=== PATIENT | female | born 1990 | race Caucasian/White ===

== ENCOUNTER → 2022-07-30 14:42 | Outpatient (CLI) | payer MEDICAID, SELFPAY ==
[2022-07-30 16:25] LABS: Albumin Level 3.9 g/dl (3.5-5.0); Blood Urea Nitrogen 58 mg/dl (7-17); Calcium 7.7 mg/dl (8.4-10.2); Carbon Dioxide 19 mmol/L (22.0-30.0); Chloride 112 mmol/L (98-107); Estimated Glomerular Filt Rate 9 ml/min (>60); GFR (African American) 11 ML/MIN (>60); Glucose 94 mg/dl (74-100); Phosphorous 8.1 mg/dl (2.5-4.5); Sodium 141 mmol/L (136-145)
[2022-07-30 16:38] LABS: Intact Parathyroid Hormone 407.5 pg/mL (7.5-53.5)
[2022-07-30 18:14] LABS: 25-OH Vitamin D, Total 18.6 ng/mL (30-100)
== END ==
PROVIDERS: PCP Family Medicine; Visit Provider Internal Medicine Nephrology
DX: N18.5 Chronic kidney disease, stage 5 (principal)
CPT/HCPCS: 36415; 80069; 82306; 83970

== ENCOUNTER 2022-09-07 21:23 | Emergency (ER) | payer MEDICAID, SELFPAY ==
[2022-09-07 21:25] VITALS: BP 200/109; BP 209/114; PULSE 89; RESP 16; TEMP 37; O2SAT 100; BMI 25.7
[2022-09-07 21:34] VITALS: BMI 24.1
--- NOTE | 2022-09-07 21:44 | XR_ITS ---
PROCEDURE INFORMATION: Exam: XR Chest Exam date and time: 09/07/2022 9:48 PM Age: 32 years old Clinical indication: Cough; Patient HX: Unable to remove piercing; Additional info: Cough/chest pain TECHNIQUE: Imaging protocol: Radiologic exam of the chest. Views: 2 views. COMPARISON: No relevant prior studies available. FINDINGS: Lungs: Normal pulmonary expansion. Pulmonary vasculature grossly normal. No gross pulmonary infiltrates or edema pattern. Pleural spaces: No pleural effusion. No pneumothorax. Heart/Mediastinum: Heart size normal. No tracheal/mediastinal shift. Bones/joints: No acute osseous abnormalities are identified. Mild thoracic spondylosis. IMPRESSION: No acute thoracic process.
--- NOTE | 2022-09-07 21:45 | HMH.EDGENADL ---
Discharge Plan Disposition Patient Disposition: Left Against Medical Advice Prescriptions Prescriptions: No Action atorvastatin 40 mg Tablet 40 mg PO HS carvedilol 25 mg Tablet 25 mg PO BID Rx Instructions: must administer with a meal/food sodium bicarbonate 650 mg Tablet 650 mg PO BID calcitriol 0.5 mcg Capsule 0.5 mcg PO DAILY loratadine 10 mg Tablet 10 mg PO DAILY Referrals Follow up/Referrals: Provider,Referral, MD [Primary Care Provider] - See instructions Clinical Impressions Clinical Impression: Upper respiratory infection, Hypertensive urgency, Chronic renal failure, Anemia in chronic kidney disease, Chest pain, atypical Discharge ED Provider: Stephanie Ferrer Adult HPI General Chief complaint: PAIN Stated complaint: BARONE,sore throat,SOA,Right earache Time Seen by Provider: 09/07/22 21:40 Mode of Arrival: Ambulatory Source of Information: Spouse Limitations: No Limitations History of Present Illness HPI narrative: Patient is a 32-year-old female who is here secondary to multiple complaints. Patient is complaining about right earache, cough, right-sided chest pain, elevated blood pressure and potassium. Patient states she has a history of hypertension, hyperlipidemia, diabetes and chronic renal failure. She is supposed to get her peritoneal dialysis shunt put in and is supposed to start peritoneal dialysis soon. Surgical appointment with her surgeon to get the PD catheter is next Tuesday morning. Patient said her potassium always runs high double the amount she stated. Patient stated that she still makes urine. She is takes sodium bicarbonate 650 mg 2 tablets 3 times a day to keep her potassium low. Patient stated last time her potassium was checked which was 1 month ago and they are checking every 2 months. Patient's complaining about right earache postnasal drip coughing significantly sitting up phlegm which is clear and right-sided chest pain. Patient denies any weakness or confusion or slurred speech. Patient denies any nausea vomiting or diarrhea. Patient right-sided chest pain which she says is sharp and hurts when she takes a deep breath or moves. Chest pain upper respiratory symptoms been going on for 2 days. Patient feels that chest pain is hurting now because of trauma because of the profuse cough. Onset (ago): day(s) Location: chest and right (right ear pain) Radiation: non-radiation Severity: moderate Severity scale (1-10): 8 Quality: dull Consistency: constant Relieving factors: none Exacerbating factors: none Associated symptoms: chest pain and cough Treatments prior to arrival: none Related Data Home Medications Medication Instructions Recorded Confirmed atorvastatin 40 mg tablet 40 mg PO HS High cholesterol 09/07/22 09/07/22 calcitriol 0.5 mcg capsule 0.5 mcg PO DAILY Supplement 09/07/22 09/07/22 carvedilol 25 mg tablet 25 mg PO BID Hypertension 09/07/22 09/07/22 loratadine 10 mg tablet 10 mg PO DAILY seasonal allergies 09/07/22 09/07/22 sodium bicarbonate 650 mg tablet 650 mg PO BID Supplement 09/07/22 09/07/22 Allergies Allergy/AdvReac Type Severity Reaction Status Date / Time NSAIDS (Non-Steroidal Allergy Other Verified 09/07/22 21:37 Anti-Inflamma [facility] Disclaimer: The information contained in this section may have been updated after the patient was seen, as this information can be updated by other users. 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 (Updated 09/08/22 @ 00:33 by Stephanie Ferrer MD) Diabetes type 1, uncontrolled End stage renal disease Hypertension Seasonal allergies Social History Smoking Status: Current every day smoker alcohol intake: never current occupational status: disabled Travel in the last 8 weeks: None ROS Obtained: Yes All systems reviewed & no additional complaints except as documented Constitutional Constitutional: Reports system revie
--- NOTE | 2022-09-07 21:54 | ECG_ITS ---
APPROVED REPORT Exam: Resting ECG HR:82 bpm ECG Measurements Heart Rate 82 AXES UT 157 P 84 QRSd 85 QRS 89 QT 353 T 81 QTc 392 Conclusion SINUS RHYTHM NORMAL ECG UNCONFIRMED REPORT Electronically signed by : Demetrius Pillai MD 09/08/2022 14:12:54
[2022-09-07 22:02] LABS: Basophils % 0.2 % (0.1-2.0); Eosinophils # 0.2 K/mm3 (0.0-0.4); Eosinophils % 2.5 % (0.1-12.0); Hematocrit 35.1 % (37.0-47.0); Hemoglobin 11.6 g/dL (12.2-16.2); Lymphocytes # 1.3 K/mm3 (0.7-4.5); Lymphocytes % 13.5 % (10-50); Mean Corpuscular Hemoglobin 31.9 pg (27.0-31.2); Mean Corpuscular Volume 96.7 fl (81-99); Mean Platelet Volume 10.8 fl (7.4-10.4); Monocytes # 0.3 K/mm3 (0.1-1.0); Monocytes % 2.7 % (1.7-9.3); Neutrophils # 7.7 K/mm3 (1.8-7.8); Platelet Count 130 K/mm3 (142-424); Red Blood Count 3.63 M/mm3 (4.20-5.40); White Blood Count 9.5 K/mm3 (4.8-10.8)
[2022-09-07 22:09] LABS: Chloride 117 mmol/L (98-107); Sodium 143 mmol/L (136-145)
[2022-09-07 22:12] LABS: Alanine Aminotransferase 13 U/L (12-78); Albumin Level 4.4 g/dl (3.5-5.0); Albumin/Globulin Ratio 1.6 (1.1-1.8); Alkaline Phosphatase 73 U/L (38-126); Aspartate Amino Transferase 16 U/L (14-36); Bilirubin,Total 0.4 mg/dl (0.2-1.3); Blood Urea Nitrogen 55 mg/dl (7-17); Carbon Dioxide 18 mmol/L (22.0-30.0); Creatinine Clearance Estimated 15 mL/min (50-200); Estimated Glomerular Filt Rate 9 ml/min (>60); GFR (African American) 11 ML/MIN (>60); Globulin 2.7 g/dL (1.3-3.2); Total Protein,Serum 7.1 g/dl (6.3-8.2)
[2022-09-07 22:13] LABS: Calcium 7.2 mg/dl (8.4-10.2); Glucose 118 mg/dl (74-100)
[2022-09-07 22:25] VITALS: BP 135/76; PULSE 82; O2SAT 97
[2022-09-07 22:27] LABS: Troponin I < 0.01 ng/ml (0.00-0.034)
--- NOTE | 2022-09-07 22:28 | PC.NURSE ---
Dr. Ferrer notified of critical creatinine of 5.40
[2022-09-07 22:30] VITALS: BP 152/82; PULSE 81; O2SAT 99
[2022-09-07 22:39] LABS: Activated Partial Thrombo Time 27.6 seconds (22.8-30.6); INR 1.03 (0.9-1.1); Prothrombin Time 11.1 seconds (10.1-12.5)
[2022-09-07 22:46] LABS: Coronavirus 19, PCR Not Detected (NotDetected); Influenza A, PCR Not Detected (NotDetected); Influenza B, PCR Not Detected (NotDetected)
--- NOTE | 2022-09-08 00:17 | PC.NURSE ---
Pt upset over wait times. States being here has just really made things worse and I get that I might go home and but I will sign that AMA paper to get out of here . Pt had pulled her own IV out, she reports I did it at 11:37 pm in case you needed to know . Pt would not stay for 2nd troponin. States she will call her Nephrology doctor in the AM to get and emergency appointment . BP 160/100, pt refused to wait to see Dr. Ferrer.
[2022-09-08 00:21] VITALS: BP 160/100; PULSE 80; RESP 16; TEMP 36.6; O2SAT 98
== END 2022-09-08 00:22 | disposition left against medical advice (07) ==
PROVIDERS: Emergency Provider Emergency Medicine
DX: J06.9 Acute upper respiratory infection, unspecified (principal); I16.0 Hypertensive urgency; R07.89 Other chest pain; D63.1 Anemia in chronic kidney disease; N18.6 End stage renal disease; E10.22 Type 1 diabetes mellitus with diabetic chronic kidney disease; I12.0 Hypertensive chronic kidney disease with stage 5 chronic kidney disease or end stage renal disease; F17.210 Nicotine dependence, cigarettes, uncomplicated; Z20.822 Contact with and (suspected) exposure to COVID-19
CPT/HCPCS: 71046; 80053; 84484; 85025; 85378; 85610; 85730; 93005; 96374; 99285; C9803; U0003; U0005

== ENCOUNTER → 2022-09-28 13:55 | Outpatient (CLI) | payer MEDICAID, SELFPAY ==
[2022-09-28 14:33] LABS: Basophils % 0.8 % (0.1-2.0); Eosinophils # 0.2 K/mm3 (0.0-0.4); Eosinophils % 4.3 % (0.1-12.0); Hematocrit 35.5 % (37.0-47.0); Hemoglobin 11.2 g/dL (12.2-16.2); Lymphocytes # 1.4 K/mm3 (0.7-4.5); Lymphocytes % 30.6 % (10-50); Mean Corpuscular HGB Conc 31.7 g/dL (31.8-35.4); Mean Corpuscular Hemoglobin 30.7 pg (27.0-31.2); Mean Corpuscular Volume 96.8 fl (81-99); Mean Platelet Volume 10.2 fl (7.4-10.4); Monocytes # 0.2 K/mm3 (0.1-1.0); Monocytes % 4.8 % (1.7-9.3); Neutrophils # 2.7 K/mm3 (1.8-7.8); Neutrophils % 59.5 % (37.0-80.0); Platelet Count 173 K/mm3 (142-424); Red Blood Count 3.66 M/mm3 (4.20-5.40); Red Cell Distribution Width 12.8 % (11.5-17.5); White Blood Count 4.5 K/mm3 (4.8-10.8)
[2022-09-28 14:54] LABS: Albumin Level 3.9 g/dl (3.5-5.0); Anion Gap 15.5 mEq/L (5-15); Blood Urea Nitrogen 61 mg/dl (7-17); Carbon Dioxide 21 mmol/L (22.0-30.0); Chloride 108 mmol/L (98-107); Estimated Glomerular Filt Rate 10 ml/min (>60); GFR (African American) 12 ML/MIN (>60); Glucose 82 mg/dl (74-100); Phosphorous 6.9 mg/dl (2.5-4.5); Potassium 5.5 mmoL/L (3.5-5.1); Sodium 139 mmol/L (136-145)
== END ==
PROVIDERS: Visit Provider Internal Medicine Nephrology
DX: N18.5 Chronic kidney disease, stage 5 (principal)
CPT/HCPCS: 36415; 80069; 85025

== ENCOUNTER → 2022-10-07 15:25 | Outpatient (CLI) | payer MEDICAID, SELFPAY ==
[2022-10-09 14:33] LABS: Hep B Core Ab, Total Negative (Negative); Hep B Surface Ab, Qual Reactive (.)
[2022-10-19 04:59] LABS: Hepatitis B Surface Antigen NEGATIVE
== END ==
PROVIDERS: Visit Provider Internal Medicine Nephrology
DX: Z01.84 Encounter for antibody response examination (principal)
CPT/HCPCS: 36415; 86704; 86706; 87340

== ENCOUNTER → 2023-03-16 11:12 | Outpatient (CLI) | payer MEDICAID, SELFPAY | PROVIDERS: PCP Nurse Practitioner; Visit Provider Nurse Practitioner | DX: R19.7 Diarrhea, unspecified (principal) | CPT/HCPCS: 87493 ==

== ENCOUNTER 2023-04-20 17:19 | Emergency (ER) | payer MEDICAID, SELFPAY ==
[2023-04-20 17:30] VITALS: BP 108/70; PULSE 73; RESP 18; TEMP 36.6; O2SAT 99; BMI 26.2
--- NOTE | 2023-04-20 17:40 | EXP.UTC ---
Discharge Plan Disposition Patient Disposition: Home, Self-Care Condition: Good Prescriptions Prescriptions: No Action insulin asp prt-insulin aspart 100 unit/mL (70-30) cartridge 75 unit SQ DAILY atorvastatin 40 mg Tablet 40 mg PO HS carvedilol 25 mg Tablet 25 mg PO BID Rx Instructions: must administer with a meal/food calcitriol 0.5 mcg Capsule 0.5 mcg PO DAILY loratadine 10 mg Tablet 10 mg PO DAILY Referrals Follow up/Referrals: Maria A Soria APRN [Primary Care Provider] - See instructions Activity Restrictions/Add. Instructions Additional Instructions/Restrictions: *Monitor Temp, Over the counter Motrin or Tylenol as directed/as needed Tylenol every 4 hours and Motrin every 6 hours (as long as your family doctor has told you that you can take it) for fever or pain. and straight to ER if unable to lower temp less than 101.0 after medication given *Warm salt water gargles may help to soothe the throat *Throat Lozenges? *Warm fluids like tea with honey may help to soothe the throat? *Sleep elevated *Humidifier/Vaporizer Over the counter cough and cold medication may help with symptoms Your throat swab was sent for culture. Those results are typically sent to your primary care. Be sure to follow up in 2-3 days with your family doctor/primary care physician if no improvement so they can review those result and treat if necessary. If you don?t have a primary care doctor, I recommend you get one but in the mean time, you will have to return to a walk in clinic Follow up IMMEDIATELY for new or worsening symptoms or no Noticeable improvement over the next 48-72 hours. 911 for difficulty breathing or swallowing Clinical Impressions Clinical Impression: Viral upper respiratory infection Instructions Patient Instructions: DI for Viral Upper Respiratory Infection -- Adult Discharge ED Provider: Yue Zhang [facility] [place] HPI General Stated complaint: sore throat, BARONE ear ache Mode of Arrival: Ambulatory Source of Information: Patient Limitations: No Limitations Time Seen by Provider: 04/20/23 17:40 Description of Symptoms (Recalled from Triage Doc. by RN): PATIENT C/O COUGH, EAR ACHE, SORE THROAT, FEVER AND CHILLS X 3 DAYS HEENT Symptoms (Recalled from RN notes): Yes Resp Symptoms (Recalled from RN notes): Yes Skin Symptoms (Recalled from RN notes): No MS Symptoms (Recalled from RN notes): No Functional Status (Recalled from RN notes): WNL History of Present Illness Provider Complaint: Patient states that she was recently around family that has since tested positive for Flu B States for the last couple of days she has been having fever, chills, pain in her ears sore throat and cough Related Data Home Medications Medication Instructions Recorded Confirmed atorvastatin 40 mg tablet 40 mg PO HS High cholesterol 09/07/22 04/13/23 calcitriol 0.5 mcg capsule 0.5 mcg PO DAILY Supplement 09/07/22 04/13/23 carvedilol 25 mg tablet 25 mg PO BID Hypertension 09/07/22 04/13/23 loratadine 10 mg tablet 10 mg PO DAILY seasonal allergies 09/07/22 04/13/23 insulin aspart prot-aspart 100 75 unit SQ DAILY 04/13/23 04/13/23 unit/mL (70-30) subcutaneous cartridge Allergies Allergy/AdvReac Type Severity Reaction Status Date / Time NSAIDS (Non-Steroidal Allergy Other Verified 04/13/23 14:32 Anti-Inflamma Worker's Comp Is this a Worker's Comp case?: No [facility] Disclaimer: The information contained in this section may have been updated after the patient was seen, as this information can be updated by other users. 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 (Updated 04/20/23 @ 18:01 by Yue Zhang APRN) Diabetes type 1, uncontrolled End stage renal disease Hypertension Seasonal allergies Surgical History (Updated 04/13/23 @ 15:02 by SADIQ Eldridge) H/O gastric sleeve H/O tubal ligation History of delivery History of D&C Family Hist
[2023-04-20 17:53] LABS: UTC Influenza A Antigen Negative (Negative); UTC Influenza B Antigen Negative (Negative)
[2023-04-20 17:54] LABS: UTC Strep Screen (Rapid) Negative (Negative)
[2023-04-20 18:08] VITALS: BP 108/70; PULSE 73; RESP 18; TEMP 36.6; O2SAT 99
== END 2023-04-20 18:13 | disposition home or self-care (01) ==
PROVIDERS: Emergency Provider Nurse Practitioner; PCP Nurse Practitioner
DX: J06.9 Acute upper respiratory infection, unspecified (principal); R50.9 Fever, unspecified; E10.69 Type 1 diabetes mellitus with other specified complication; N18.6 End stage renal disease; Z87.891 Personal history of nicotine dependence
CPT/HCPCS: 87804; 87880; 99203; 99212; G0463

== ENCOUNTER 2023-08-25 08:53 | Outpatient (CLI) | payer MEDICAID, SELFPAY ==
--- OUTSIDE RECORDS SUMMARY | 2023-08-25 08:57 | XMS_ITS ---
Author Name Mukul Stevens Address [address] [place] [address] Phone [phone] Organization [facility], NA DOCUMENT DISCLAIMER Multiple document versions may exist, please be sure you review the latest version. The information in the [facility] Progress Note Document represents a providers documented clinical note containing certain health and medical information. It may not contain the complete medical history for the patient and should be independently verified. The represented time in the document is Eastern Time PROVIDER ROUNDING NOTE PD PROVIDER?ROUNDING?NOTE?PD Clinic:?[id number]?HOME?PROGRAM Visit?date:?11/08/2022?00:00?Modality/setting:?HCCPD Crystal?Gianni?-?Chart?#:?[id number] Method?of?Interaction:?Face?to?face Date?of?Interaction:?06/30/2023 ?-?Patient?is?stable ?-?Medications?and?labs?reviewed. Patient?issues?include: no?complaints?today,?she?is?active?on?u?of?l?transplant?list,?was?called?for transplant?but?she?did?not?hear?her?phone?and?she?missed?it. Vitals Temperature:? Pulse:? Respirations: 97.4? 79? 16? Date:? 05/11/23? 04/11/23? 02/04/23? Weight?(kg):? Date/Height:? 70.4? 71? 71.4? 12/14/2022&# 160;?? 165? ----- BP?(Sitting):? BP?(Standing):?&#1 60;? ----- 111/84? 140/87? 173/128? ----- Volume?Management?Comments: good PD?Prescription CCPD ??CCPD,?6X?Week,?EDW?70.5?(kg)?Ca?2.5?(mEq/L)&#160 ;Mg?0.5?(mEq/L),?Dextrose?1.5;?2.5; ??fill?vol?1800?mL?cyc?therapy?vol?5400?mL?cyc?therapy?time?7?hrs?30?min,?avg?d Adequacy/Transport ?Creatinine?Transport?Glucose?Transport?? ?&# 160;?D/P?Ratio?PET?4hr?D/DO?Ratio?PET 4hr? ?Average?Low12/28/22?? ?Average?Low12/28/22?? ?0.51&#1 60;?12/28/22?? ?0.43?12/28/22?-?-?& #160;??-?-?-?-?& #160;??-?-?Residual?Kt/V?PD?Kt/V&# 160;(Dialysate)?Total?Weekly?Kt/V?? Potassium,?Serum?mEq/L ?1.01?04/26/23?? ?0.81?04/26/23?? ?1.82?1 ?? ?6.1?06/20/23?? ?1.70?01/19/23?? ?0.92?01/19/23?? ?2.62?0 01/19/23?? ?5.0?05/24/23?? ?1.40?12/14/22?? ?1.25?12/14/22?? ?2.65?0 12/14/22?? ?5.2?04/26/23?Bicarbonate?mEq/L??? Creatinine?Serum?mg/dL ??& #160;??Sodium?mEq/L? BUN?mg/dL?18?06/20/23?? ?8.80?06/20/23?? ?140?&#16 0;??06/20/23?? ?78?06/20/23?? ?20?05/24/23?? ?7.96?05/24/23?? ?141?&#16 0;??05/24/23?? ?63?05/24/23?? ?20?04/26/23?? ?6.84?04/26/23?? ?139?&#16 0;??04/26/23?? ?66?04/26/23?? ?-?Adequacy?parameters?reviewed Adequacy not?following?a?low?k?diet?for?thanksgiving,?repeat?drawn?today.??may?be?getting uremic?on?6days?will?go?back?to?7?and?add?nahco3 back Anemia ?HGB?g/dL? Transferrin?Sat.?(Calc)?%?Ferritin?ng/mL&#160 ;?10.2?06/20/23?43?06/20/23?637 ?04/26/23?? ?10.1?05/24/23?36?05/24/23?243 ?01/19/23?? ?10.8?04/26/23?46?04/26/23?295 ?12/21/22?? ?-?Anemia?reviewed ?-?Anemia?targets?met not?on?zina Bone?and?Mineral?Metabolism ??Calcium,?Total?mg/dL?? Calcium,?Corrected?mg/dL ?&#1 60;??Phosphorous?mg/dL??? PTH-Intact,?Plasma?pg/mL ??8.9?06/20/23? 9.1?06/20/23?7.5&#16 0;?06/20/23?466?06/20/23?9.1?05/24/23? 9.1?05/24/23?5.2&#16 0;?05/24/23?326?05/24/23?8.7?04/26/23? 8.7?04/26/23?6.7&#16 0;?04/26/23?942?04/26/23?Vitamin?D?25?Hydroxy?ng/mL?45.3?03/29/23?18.1?11/08/22?-? PTH ?-?PTH?within?target ?-?Bone?and?mineral?metabolism?parameters?reviewed ?-?Hyperphosphatemia?noted po4?improved?on?chloe?acetate?she?was?unable?to?take sevelamer.??chloe?acetate giving?her?diarrhea.??she?went?back?on?sevelamer?and&#1 60;now?po4?uncontrolled.??will try?velphoro.??samples?given. Nutrition ?Albumin?g/dL?nPCR?g/kg/day?Glucose?mg/dL?3.7?06/20/23?? ?1.03?04/26/23?? ?189?06/20/23?? ?4.0?05/24/23?? ?1.18?01/19/23?? ?191?05/24/23?? ?4.0?04/26/23?? ?0.89?12/14/22?? ?124?04/26/23?? ?-?Nutrition?reviewed alb?dropped?pt?lost?appetite?for?meat Home?Medications ?Home?Medications?(updated:?06/15/2023?15:36:16)??Patient:?Gianni,?Crystal ?atorvastatin?(atorvastatin) ?40?mg,?oral,?1?tablet?once?a?day ?calcitriol?(calcitriol) ?0.5?mcg,?oral,?2?capsule?once?a?day ?calcium?acetate(phosphat?bind)?(calcium?acetate(phosphat?bind)) ?667?mg,?oral,?2?capsule?three?times?a?day ?[take?1?with?meals] ?carvedilol?(carvedilol) ?25?mg,?oral,?1?tablet?twice?a?day ?Claritin?(loratadine) ?10?mg,?oral,?1?tablet?once?a?day ?Colace?(docusate?sodium) ?100?mg,?oral,?1?capsule?twice?a?day ?[OTC] ?ergocalciferol?(vitamin?D2)?(ergocalciferol?(vitamin?d2)) ?1,250?mcg?(50,000?unit),?oral,?1?capsule?once?a?week ?lactulose?(lactulose) ?10?gram/15?mL,?oral,?30?ml?once?a?day ?[for?constipation,?may?repeat?dose?if?not?effective] ?lisinopril?(lisinopril) ?10?mg,?oral,?1?tablet?at?bedtime Access?Status?and?Evaluation Active?PD?Catheter ?Type ?Exit?Site?&#1 60;?Status?Access?ID?PDCatheter-Double?Cuff?Coiled?Lower?Quadrant-Lef t?Active?(In?Use)?[id number]?- ?-?&# 160;?-?-? Peritoneal?Access?Evaluation?(Hollyowski?Criteria): Overall?Evaluation ?-?Perfect Peritoneal?Access?-?Exit?Site ?-?Site?looks?clean Peritoneal?Access?-?Tunnel ?-?Tunnel?tract?without?sign?of?infection Exam ?-?Vital?signs?reviewed Pulmonary ?-?LUNGS?-?clear Cardiovascular ?-?CV?-?Blood?pressure?noted ?-?CV?-?RRR Edema ?-?EXT?-?No?edema Interest?and?Eligibility?(If?changes?are?made,?Please?notify?SW?via?alert?below) ?Date?of?discussion?from?transplant?assessment:?03/09/2023 ?Patient?already?on?transplant?list??Yes ?Patient?interested?in?transplantation??Yes ?Has?patient's?physician?identified?one?or?more?exclusions per?the ?Contraindication?list?provided?by?the?transplant?center? ??No ?Patient?referred?for?transplantation??Yes,?per?physician?order ?Transplant?Comments: ??Per?Patient?she?is?active?on?UL?list,?and?request?to?be?referred?to?[facility]. ??03/09/23?continue?to?monitor?and?assist?with?transplant?process,?patient continues?to?follow?up?with?programs. ?Transplant?[facility]/state:?[facility] ?[place] Tobacco?Cessation ??Tobacco?use:?Former?user ??Type:?Cigarettes ??Packs?per?day:? 1 ??Years?smoked:? 10 ??Frequency:?Daily Mukul?KAIDEN Stevens END OF DOCUMENT
--- OUTSIDE RECORDS SUMMARY | 2023-08-25 08:57 | XMS_ITS ---
Author Name Mukul Stevens Address [address] [place] [address] Phone [phone] Organization [facility], NA DOCUMENT DISCLAIMER Multiple document versions may exist, please be sure you review the latest version. The information in the [facility] Progress Note Document represents a providers documented clinical note containing certain health and medical information. It may not contain the complete medical history for the patient and should be independently verified. The represented time in the document is Eastern Time PROVIDER ROUNDING NOTE PD PROVIDER?ROUNDING?NOTE?PD Clinic:?[id number]?HOME?PROGRAM Visit?date:?11/08/2022?00:00?Modality/setting:?HCCPD Crystal?Gianni?-?Chart?#:?[id number] Method?of?Interaction:?Face?to?face Date?of?Interaction:?08/11/2023 ?-?Patient?is?stable Patient?issues?include: no?complaints?today,?she?is?active?on?u?of?l?transplant?list,?was?called?for transplant?but?she?did?not?hear?her?phone?and?she?missed?it.??she?wants trazodone?for?sleep?melatonin/benadryl?ineffective Vitals Temperature:? Pulse:? Respirations: 97.2? 88? 18? Date:? 08/11/23? 06/30/23? 05/11/23? Weight?(kg):? Date/Height:? 71.3? 70.4? 12/14/2022&# 160;?? 165? ----- BP?(Sitting):? BP?(Standing):?&#1 60;? ----- 131/91? 111/76? 111/84? 106/84? ----- Volume?Management?Comments: good PD?Prescription CCPD ??CCPD,?6X?Week,?EDW?67.5?(kg)?Ca?2.5?(mEq/L)&#160 ;Mg?0.5?(mEq/L),?Dextrose?1.5;?2.5; ??fill?vol?1800?mL?cyc?therapy?vol?7200?mL?cyc?therapy?time?8?hrs?10?min,?avg?d Adequacy/Transport ?Creatinine?Transport?Glucose?Transport?? ?&# 160;?D/P?Ratio?PET?4hr?D/DO?Ratio?PET 4hr? ?Average?Low/?? ?Average?Low12/28/22?? ?0.51&#1 60;?12/28/22?? ?0.43?12/28/22?-?-?& #160;??-?-?-?-?& #160;??-?-?Residual?Kt/V?PD?Kt/V&# 160;(Dialysate)?Total?Weekly?Kt/V?? Potassium,?Serum?mEq/L ?1.31?07/21/23?? ?1.03?07/21/23?? ?2.34?0 07/21/23?? ?5.1?07/21/23?? ?1.01?04/26/23?? ?0.81?04/26/23?? ?1.82?1 ?? ?4.4?07/13/23?? ?1.70?01/19/23?? ?0.92?01/19/23?? ?2.62?0 01/19/23?? ?4.8?06/30/23?Bicarbonate?mEq/L??? Creatinine?Serum?mg/dL ??& #160;??Sodium?mEq/L? BUN?mg/dL?25?07/21/23?? ?8.14?07/21/23?? ?142?&#16 0;??07/21/23?? ?61?07/21/23?? ?18?06/20/23?? ?8.80?06/20/23?? ?140?&#16 0;??06/20/23?? ?78?06/20/23?? ?20?05/24/23?? ?7.96?05/24/23?? ?141?&#16 0;??05/24/23?? ?63?05/24/23?? ?-?Adequacy?parameters?reviewed Adequacy ?-?Adequacy?target?met kinetics?good Anemia ?HGB?g/dL? Transferrin?Sat.?(Calc)?%?Ferritin?ng/mL&#160 ;?11.3?07/21/23?37?07/21/23?426 ?07/21/23?? ?10.2?06/20/23?43?06/20/23?637 ?04/26/23?? ?10.1?05/24/23?36?05/24/23?243 ?01/19/23?? ?-?Anemia?reviewed ?-?Anemia?targets?met not?on?zina Bone?and?Mineral?Metabolism ??Calcium,?Total?mg/dL?? Calcium,?Corrected?mg/dL ?&#1 60;??Phosphorous?mg/dL??? PTH-Intact,?Plasma?pg/mL ??9.2?07/21/23? 9.4?07/21/23?6.1&#16 0;?07/21/23?282?07/21/23?8.9?06/20/23? 9.1?06/20/23?4.6&#16 0;?07/13/23?466?06/20/23?9.1?05/24/23? 9.1?05/24/23?7.6&#16 0;?06/30/23?326?05/24/23?Vitamin?D?25?Hydroxy?ng/mL?44.8?07/21/23?45.3?03/29/23?18.1?11/08/22? PTH ?-?PTH?within?target ?-?Bone?and?mineral?metabolism?parameters?reviewed ?-?Hyperphosphatemia?noted she?is?on?chloe?acetate Nutrition ?Albumin?g/dL?nPCR?g/kg/day?Glucose?mg/dL?3.8?07/21/23?? ?1.14?07/21/23?? ?133?07/21/23?? ?3.7?06/20/23?? ?1.03?04/26/23?? ?189?06/20/23?? ?4.0?05/24/23?? ?1.18?01/19/23?? ?191?05/24/23?? ?-?Nutrition?reviewed alb?dropped?pt?lost?appetite?for?meat Home?Medications ?Home?Medications?(updated:?08/11/2023?13:42:09) Patient:?Gianni, Crystal ??atorvastatin?(atorvastatin) 40?mg,?oral,?1?tablet?once?a?day ??calcitriol?(calcitriol) 0.5?mcg,?oral,?2?capsule?once?a?day ??calcium?acetate(phosphat?bind)?(calcium?acetate(phosphat?bind)) 667?mg,?oral,?1?capsule?three?times?a?day ??carvedilol?(carvedilol) 25?mg,?oral,?1?tablet?twice?a?day ??Claritin?(loratadine) 10?mg,?oral,?1?tablet?once?a?day ??Colace?(docusate?sodium) 100?mg,?oral,?1?capsule?twice?a?day [OTC] ??ergocalciferol?(vitamin?D2)?(ergocalciferol?(vitamin?d2)) 1,250?mcg?(50,000?unit),?oral,?1?capsule?once?a?week ??lactulose?(lactulose) 10?gram/15?mL,?oral,?30?ml?once?a?day [for?constipation,?may?repeat?dose?if?not?effective] ??lisinopril?(lisinopril) 10?mg,?oral,?1?tablet?at?bedtime Access?Status?and?Evaluation Active?PD?Catheter ?Type ?Exit?Site?&#1 60;?Status?Access?ID?PDCatheter-Double?Cuff?Coiled?Lower?Quadrant-Lef t?Active?(In?Use)?[id number]?- ?-?&# 160;?-?-? Peritoneal?Access?Evaluation?(Erika?Criteria): Overall?Evaluation ?-?Perfect Peritoneal?Access?-?Exit?Site ?-?Site?looks?clean Peritoneal?Access?-?Tunnel ?-?Tunnel?tract?without?sign?of?infection Exam ?-?Vital?signs?reviewed Pulmonary ?-?LUNGS?-?clear Cardiovascular ?-?CV?-?Blood?pressure?noted ?-?CV?-?RRR Edema ?-?EXT?-?No?edema Interest?and?Eligibility?(If?changes?are?made,?Please?notify?SW?via?alert?below) ?Date?of?discussion?from?transplant?assessment:?03/09/2023 ?Patient?already?on?transplant?list??Yes ?Patient?interested?in?transplantation??Yes ?Has?patient's?physician?identified?one?or?more?exclusions per?the ?Contraindication?list?provided?by?the?transplant?center? ??No ?Patient?referred?for?transplantation??Yes,?per?physician?order ?Transplant?Comments: ??Per?Patient?she?is?active?on?UL?list,?and?request?to?be?referred?to?[facility]. ??03/09/23?continue?to?monitor?and?assist?with?transplant?process,?patient continues?to?follow?up?with?programs. ?Transplant?center/state:?[facility]?HOSPITAL ?[facility] Tobacco?Cessation ??Tobacco?use:?Former?user ??Type:?Cigarettes ??Packs?per?day:? 1 ??Years?smoked:? 10 ??Frequency:?Daily Mukul?Hilda,? END OF DOCUMENT
--- OUTSIDE RECORDS SUMMARY | 2023-08-25 08:57 | XMS_ITS ---
Author Name Mukul Stevens Address [address] [place] [address] Phone [phone] Organization [facility], NA DOCUMENT DISCLAIMER Multiple document versions may exist, please be sure you review the latest version. The information in the [facility] Progress Note Document represents a providers documented clinical note containing certain health and medical information. It may not contain the complete medical history for the patient and should be independently verified. The represented time in the document is Eastern Time PROVIDER ROUNDING NOTE PD PROVIDER?ROUNDING?NOTE?PD Clinic:?[id number]?HOME?PROGRAM Visit?date:?11/08/2022?00:00?Modality/setting:?HCCPD Crystal?Gianni?-?Chart?#:?[id number] Method?of?Interaction:?Face?to?face Date?of?Interaction:?06/15/2023 Patient?is?stable ?-?Medications?and?labs?reviewed. Patient?issues?include: Comments:?no?complaints?today,?she?is?active?on?u?of l?transplant?list Vitals ?Temperature:?Pulse:?Respirations:?97?94?16?Date?BP?Sitting?&#160 ; ?BP?Standing?Weight(kg)?05/11/23?111/84?& #160;?70.4?04/11/23?140/87?& #160;?71?02/04/23?173/128?71.4?Height?(cm):?165 ?Height?Date:?12/14/2022 VOLUME?MANAGEMENT?Comments:?good PD?Prescription CCPD ??CCPD,?6X?Week,?EDW?70.5?(kg)?Ca?2.5?(mEq/L)&#160 ;Mg?0.5?(mEq/L),?Dextrose?1.5;?2.5; ??fill?vol?1800?mL?cyc?therapy?vol?5400?mL?cyc?therapy?time?7?hrs?30?min,?avg?d Adequacy/Transport ?Creatinine?Transport?Glucose?Transport?? ?&# 160;?D/P?Ratio?PET?4hr?D/DO?Ratio?PET 4hr? ?Average?Low12/28/22?? ?Average?Low12/28/22?? ?0.51&#1 60;?12/28/22?? ?0.43?12/28/22?Residual?Kt/V?PD?Kt/V&# 160;(Dialysate)?Total?Weekly?Kt/V?? Potassium,?Serum?mEq/L ?1.01?04/26/23?? ?0.81?04/26/23?? ?1.82?1 ?? ?5.0?05/24/23?? ?1.70?01/19/23?? ?0.92?01/19/23?? ?2.62?0 01/19/23?? ?5.2?04/26/23?? ?1.40?12/14/22?? ?1.25?12/14/22?? ?2.65?0 12/14/22?? ?5.2?03/29/23?Bicarbonate?mEq/L??? Creatinine?Serum?mg/dL ??& #160;??Sodium?mEq/L? BUN?mg/dL?20?05/24/23?? ?7.96?05/24/23?? ?141?&#16 0;??05/24/23?? ?63?05/24/23?? ?20?04/26/23?? ?6.84?04/26/23?? ?139?&#16 0;??04/26/23?? ?66?04/26/23?? ?20?03/29/23?? ?7.20?03/29/23?? ?143?&#16 0;??03/29/23?? ?53?03/29/23?? ?-?Adequacy?parameters?reviewed Adequacy ?-?Adequacy?target?met ADEQUACY?TRANSPORT?Comment:?still?meeting?clearance?at?6days/wk Anemia ?HGB? Transferrin?Sat.?(Calc) ?Ferritin?g/dL?%?ng/m L?10.1?05/24/23?36?05/24/23?? ?637?04/26/23?? ?10.8?04/26/23?46?04/26/23?? ?243?01/19/23?? ?11.2?03/29/23?48?03/29/23?? ?295?12/21/22?? ?-?Anemia?reviewed ANEMIA?Comments:?not?on?zina Bone?and?Mineral?Metabolism ?Calcium,?Total?Calcium,?Corrected?Phosphorous? &#160 ;?PTH-Intact,?Plasma?mg/dL?mg/dL?mg/dL?pg/mL?9.1?05/24/23?? ?9.1?05/24/23?? ?5.2?&#16 0;??05/24/23?? ?326?05/24/23?? ?8.7?10/10/23?? ?8.7?04/26/23?? ?6.7?&#16 0;??04/26/23?? ?942?04/26/23?? ?7.8?03/29/23?? ?7.7?03/29/23?? ?7.0?&#16 0;??04/11/23?? ?1094?03/29/23 ? ??Vitamin?D?25?Hydroxy?ng/mL?45.3?03/29/23?18.1?11/08/22? PTH ?-?PTH?within?target ?-?Bone?and?mineral?metabolism?parameters?reviewed ?-?Calcium?controlled ?-?Phosphorus?controlled BONE?AND?MINERAL?METABOLISM?Comments:?po4?improved?on?chloe&#1 60;acetate?she?was?unable?to?take?sevelamer.??she?had&# 160;an?episode?of?gross?blood?in?her?peritoneal?fluid?w hich?was?culture?neg,?ct?neg.??possible?r/t?irregular menses Nutrition ?Albumin?nPCR?Glucose?&#1 60;?g/dL?g/kg/day?mg/dL?4.0?05/24/23?? ?1.03?04/26/23?? ?191?05/24/23?? ?4.0?04/26/23?? ?1.18?01/19/23?? ?124?04/26/23?? ?4.1?03/29/23?? ?0.89?12/14/22?? ?163?03/29/23?? ?-?Nutrition?reviewed NUTRITION?Comments:?alb?improved Home?Medications ?atorvastatin?(atorvastatin) ?40?mg,?oral,?1?tablet?once?a?day ?calcitriol?(calcitriol) ?0.5?mcg,?oral,?2?capsule?once?a?day ?calcium?acetate(phosphat?bind)?(calcium?acetate(phosphat?bind)) ?667?mg,?oral,?2?capsule?three?times?a?day ?[take?1?with?meals] ?carvedilol?(carvedilol) ?25?mg,?oral,?1?tablet?twice?a?day ?Claritin?(loratadine) ?10?mg,?oral,?1?tablet?once?a?day ?Colace?(docusate?sodium) ?100?mg,?oral,?1?capsule?twice?a?day ?[OTC] ?ergocalciferol?(vitamin?D2)?(ergocalciferol?(vitamin?d2)) ?1,250?mcg?(50,000?unit),?oral,?1?capsule?once?a?week ?lisinopril?(lisinopril) ?10?mg,?oral,?1?tablet?at?bedtime Access?Status?and?Evaluation Active?PD?Catheter ?Type ?Exit?Site?&#1 60;?Status?Access?ID?PDCatheter-Double?Cuff?Coiled?Lower?Quadrant-Lef t?Active?(In?Use)?[id number]? Peritoneal?Access?Evaluation?(Erika?Criteria): Overall?Evaluation ?-?Perfect Peritoneal?Access?-?Exit?Site ?-?Site?looks?clean Peritoneal?Access?-?Tunnel ?-?Tunnel?tract?without?sign?of?infection Exam Vital?signs?reviewed Pulmonary ?-?LUNGS?-?clear Cardiovascular ?-?CV?-?Blood?pressure?noted ?-?CV?-?RRR Edema ?-?EXT?-?No?edema Interest?and?Eligibility?(If?changes?are?made,?Please?notify?SW?via?alert?below) ?Date?of?discussion?from?transplant?assessment:?03/09/2023 ?Patient?already?on?transplant?list??Yes ?Patient?interested?in?transplantation??Yes ?Has?patient's?physician?identified?one?or?more?exclusions per?the ?Contraindication?list?provider?by?the?transplant?center? ??No ?Patient?referred?for?transplantation??Yes,?per?physician?order ?Transplant?Comments: ??Per?Patient?she?is?active?on?UL?list,?and?request?to?be?referred?to?[facility]. ??03/09/23?continue?to?monitor?and?assist?with?transplan t?process,?patient?continues?to?follow?up?with?programs. ?Transplant?center/state:?[facility] ?Transplant?center/state:?[facility] Tobacco?Cessation ??Tobacco?use:?Former?user ??Type:?Cigarettes ??Packs?per?day:? 1 ??Years?smoked:? 10 ??Frequency:?Daily Mukul?Hilda,? END OF DOCUMENT
--- NOTE | 2023-08-25 09:10 | XR_ITS ---
FINAL REPORT CLINICAL HISTORY: CONSTIPATION COMPARISON: None FINDINGS: A single supine view the abdomen was obtained. The bowel gas pattern is nonspecific but nonobstructive. There is a moderate amount of stool present in the colon. A peritoneal dialysis catheter is present. Mild vascular calcifications are noted. Osseous structures are within normal limits. IMPRESSION: Nonspecific but nonobstructive bowel gas pattern with a moderate stool burden.. Reviewed, Interpreted and Dictated by Maikol Leslie III, MD Transcribed by Oanh Palencia Authenticated and [facility]
== END 2023-08-25 23:59 ==
LOC: RAD 08:55
PROVIDERS: PCP Nurse Practitioner; Visit Provider Internal Medicine Nephrology
DX: K59.00 Constipation, unspecified (principal)
CPT/HCPCS: 74018

== ENCOUNTER 2023-09-17 10:06 | Emergency (ER) | payer MEDICAID, SELFPAY ==
[2023-09-17 10:20] VITALS: BP 146/90; PULSE 81; RESP 19; TEMP 36.7; O2SAT 100; BMI 27.4
--- NOTE | 2023-09-17 10:42 | EXP.UTC ---
Discharge Plan Disposition Patient Disposition: Home, Self-Care Condition: Good Prescriptions Prescriptions: New azithromycin [azithromycin] 250 mg tablet 250 mg PO DIRECTED Qty: 6 0RF Rx Instructions: Take two (2) tablets on day #1, then one (1) tablet day #2 thru #5 No Action carvedilol 25 mg Tablet 25 mg PO BID Rx Instructions: must administer with a meal/food loratadine 10 mg Tablet 10 mg PO DAILY ergocalciferol (vitamin D2) [Vitamin D2] 1,250 mcg (50,000 unit) capsule 1,250 mcg PO WEEKLY Patient Comments: TAKE 1 CAPSULE BY MOUTH ONCE PER WEEK (WEEKLY) sevelamer carbonate [Renvela] 800 mg tablet 800 mg PO TID Patient Comments: TAKE 1 TABLET BY MOUTH THREE TIMES A DAY WITH MEALS AND 1 TABLET WITH SNACKS Referrals Follow up/Referrals: Maria A Soria APRN [Primary Care Provider] - See instructions Activity Restrictions/Add. Instructions Additional Instructions/Restrictions: Start antibiotics today be sure to take it as ordered with the full length of time although you should start feeling better in 24-48 hours. Change toothbrush and toothpaste 24-48 hours after starting antibiotics Tylenol or Motrin as needed for fever or pain Encourage fluids, water, Gatorade, Powerade, try cold fluids, popsicles, ice cream will make it feel better You are contagious for 24 hours. Avoid kissing anyone, no eating or drinking after anyone. You are contagious. Follow-up the ER for new or worsening symptoms or no noticeable improvement over the next 24-48 hours. Follow-up with PCP this week. Clinical Impressions Clinical Impression: Strep sore throat Instructions Patient Instructions: DI for Strep Throat Discharge ED Provider: [place] ([facility] [place] General Stated complaint: sore throat,earache Mode of Arrival: Ambulatory Source of Information: Patient Limitations: No Limitations Time Seen by Provider: 09/17/23 10:42 Description of Symptoms (Recalled from Triage Doc. by RN): PATIENT C/O COUGH, CONGESTION, AND SORE THROAT SINCE TUESDAY MORNING HEENT Symptoms (Recalled from RN notes): Yes Resp Symptoms (Recalled from RN notes): Yes Skin Symptoms (Recalled from RN notes): No MS Symptoms (Recalled from RN notes): No Functional Status (Recalled from RN notes): WNL History of Present Illness Provider Complaint: 33 YR OLD FEMALE PRESENTS FOR C/O COUGH, CONGESTION, AND SORE THROAT SINCE TUESDAY MORNING Related Data Home Medications Medication Instructions Recorded Confirmed carvedilol 25 mg tablet 25 mg PO BID Hypertension 09/07/22 09/17/23 loratadine 10 mg tablet 10 mg PO DAILY seasonal allergies 09/07/22 09/17/23 ergocalciferol (vitamin D2) 1,250 1,250 mcg PO WEEKLY 09/17/23 09/17/23 mcg (50,000 unit) capsule (Vitamin D2) sevelamer carbonate 800 mg tablet 800 mg PO TID 09/17/23 09/17/23 (Renvela) Previous Rx's Medication Instructions Recorded azithromycin 250 mg tablet 250 mg PO DIRECTED #6 tabs 09/17/23 Allergies Allergy/AdvReac Type Severity Reaction Status Date / Time NSAIDS (Non-Steroidal Allergy Other Verified 04/13/23 14:32 Anti-Inflamma Worker's Comp Is this a Worker's Comp case?: No [facility] Disclaimer: The information contained in this section may have been updated after the patient was seen, as this information can be updated by other users. 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) Diabetes type 1, uncontrolled End stage renal disease Hypertension Seasonal allergies Surgical History , PRIMARY CARE NURSE) H/O gastric sleeve H/O tubal ligation History of delivery History of D&C Family History , PRIMARY CARE NURSE) Cancer Grandmother Mother Social History , PRIMARY CARE NURSE) Smoking Status: Former smoker alcohol intake: former substance use type: denies use current occupational status: disabled Travel in the last 8 weeks: None ROS Obtained: Yes All systems reviewed & no additional complaints except as documented Constitutional Constitutional: Reports system reviewed and no additional complaints, except as documented, Reports as per HPI and Reports fever(s) Eyes Eyes: Reports system reviewed and no additional complaints, except as documented ENT Ears, Nose, Mouth, and Throat: Reports system reviewed and no additional complaints, except as documented, Reports as per HPI, Reports otalgia, Reports nasal congestion, Reports nasal discharge, Reports sinus pain, Reports sinus pressure and Reports sore throat Cardiovascular Cardiovascular: Reports system reviewed and no additional complaints, except as documented Respiratory Respiratory: Reports system reviewed and no additional complaints, except as documented and Reports cough Integumentary/Breasts Skin/Breast: Reports system reviewed and no additional complaints, except as documented Neurologic Neurologic: Reports system reviewed and no additional complaints, except as documented Endocrine Endocrine: Reports system reviewed and no additional complaints, except as documented Hematologic/Lymphatic Henatologic/Lymphatic: Reports system reviewed and no additional complaints, except as documented Allergic/Immunologic Allergic/Immunologic: Reports system reviewed and no additional complaints, except as documented Physical Exam General General appearance: alert and in no apparent distress Eye Eye exam: Present normal appearance and PERRL ENT ENT exam: Present mucous membranes moist, TM's normal bilaterally and normal external ear exam Expanded ENT Exam Throat exam: Present tonsillar erythema and tonsillomegaly Neck Neck exam: Present normal inspection, full ROM and trachea midline; Absent meningismus or lymphadenopathy Chest Chest inspection: Present normal inspection and symmetric chest wall rise; Absent tenderness Respiratory Respiratory exam: Present normal lung sounds bilaterally; Absent respiratory distress Cardiovascular Cardiovascular exam: Present regular rate and normal rhythm; Absent JVD Neurological Exam Neurological exam: Present alert and oriented X3 Psychiatric Psychiatric exam: Present normal affect and normal mood Skin Skin exam: Present warm, dry, intact and normal color Lymphatic Lymphatic Findings: no adenopathy Medical Decision Making Medical Records Medical records reviewed: Yes I reviewed the patient's medical records. Riaz Inquiry Pt receiving controlled substance: No Riaz was queried for this patient: No Vital Signs: 09/17/23 10:20 Temperature 98.1 F Temperature Source Oral Pulse Rate [Right Brachial] 81 Respiratory Rate 19 Blood Pressure [Right Arm] 146/90 H Blood Pressure Mean [Right Arm] 108 Blood Pressure Source [Right Arm] Automatic Cuff Blood Pressure Position [Right Arm] Sitting 02 Sat by Pulse Oximetry 100 Oxygen Delivery Method Room Air
[2023-09-17 10:47] VITALS: BP 146/90; PULSE 81; RESP 19; TEMP 36.7; O2SAT 100
[2023-09-17 10:48] LABS: UTC Influenza A Antigen Negative (Negative); UTC Influenza B Antigen Negative (Negative); UTC Strep Screen (Rapid) Positive (Negative)
== END 2023-09-17 10:49 | disposition home or self-care (01) ==
PROVIDERS: Emergency Provider Nurse Practitioner Family; PCP Nurse Practitioner
DX: J02.0 Streptococcal pharyngitis (principal); R07.0 Pain in throat; H92.03 Otalgia, bilateral; R05.9 Cough, unspecified; R09.81 Nasal congestion; R50.9 Fever, unspecified; N18.6 End stage renal disease; I12.0 Hypertensive chronic kidney disease with stage 5 chronic kidney disease or end stage renal disease; E10.9 Type 1 diabetes mellitus without complications; Z87.891 Personal history of nicotine dependence; Z99.2 Dependence on renal dialysis
CPT/HCPCS: 87804; 87880; 99212; 99214; G0463

== ENCOUNTER 2023-09-19 23:00 | Emergency (ER) | payer MEDICAID, SELFPAY ==
[2023-09-19 23:02] VITALS: BP 156/96; PULSE 91; RESP 16; TEMP 36.9; O2SAT 100; BMI 28.3
--- NOTE | 2023-09-19 23:25 | HMH.EDGENADL ---
Discharge Plan Disposition Patient Disposition: Home, Self-Care Prescriptions Prescriptions: New amoxicillin-pot clavulanate 500-125 mg tablet 1 tab PO BID Qty: 20 0RF No Action carvedilol 25 mg Tablet 25 mg PO BID Rx Instructions: must administer with a meal/food loratadine 10 mg Tablet 10 mg PO DAILY ergocalciferol (vitamin D2) [Vitamin D2] 1,250 mcg (50,000 unit) capsule 1,250 mcg PO WEEKLY Patient Comments: TAKE 1 CAPSULE BY MOUTH ONCE PER WEEK (WEEKLY) sevelamer carbonate [Renvela] 800 mg tablet 800 mg PO TID Patient Comments: TAKE 1 TABLET BY MOUTH THREE TIMES A DAY WITH MEALS AND 1 TABLET WITH SNACKS azithromycin [azithromycin] 250 mg tablet 250 mg PO DIRECTED Qty: 6 0RF Rx Instructions: Take two (2) tablets on day #1, then one (1) tablet day #2 thru #5 Referrals Follow up/Referrals: Maria A Soria APRN [Primary Care Provider] - See instructions Activity Restrictions/Add. Instructions Additional Instructions/Restrictions: Please take antibiotics as prescribed for coverage strep throat, ear infection, possible developing pneumonia. Please follow-up with your primary care provider. Please return to the emergency department if you develop any new or worsening symptoms or become concerned for your health. Clinical Impressions Clinical Impression: Acute otitis media, right, Strep throat Discharge ED Provider: Ferny Ross Adult HPI General Chief complaint: Upper Respiratory Infection Stated complaint: soa, hurts to breath congestion fever 101.3 Time Seen by Provider: 09/19/23 23:12 Mode of Arrival: Ambulatory Source of Information: Patient Limitations: No Limitations Description of Symptoms (Recalled from ER Triage Doc. by RN): pt states was seen in [facility] on 09/16 and diagnosed with strep throat. pt c/o rt ear pain, cough,chest congestion and chest discomfort while taking a breath in History of Present Illness HPI narrative: 33-year-old female with history of type 1 diabetes and subsequent end-stage renal disease, still makes urine, on nightly peritoneal dialysis, presents with multiple complaints. She says she has a sore throat and was diagnosed with strep throat on Tuesday, 2 days ago. Since then she has developed right ear pain and has a painful cough. She reports concern that she could have pneumonia. She denies any fever. She was started on azithromycin for strep throat in the urgent care center. Related Data Home Medications Medication Instructions Recorded Confirmed carvedilol 25 mg tablet 25 mg PO BID Hypertension 09/07/22 09/17/23 loratadine 10 mg tablet 10 mg PO DAILY seasonal allergies 09/07/22 09/17/23 ergocalciferol (vitamin D2) 1,250 1,250 mcg PO WEEKLY 09/17/23 09/17/23 mcg (50,000 unit) capsule (Vitamin D2) sevelamer carbonate 800 mg tablet 800 mg PO TID 09/17/23 09/17/23 (Renvela) Previous Rx's Medication Instructions Recorded azithromycin 250 mg tablet 250 mg PO DIRECTED #6 tabs 09/17/23 amoxicillin 500 mg-potassium 1 tab PO BID #20 tabs 09/19/23 clavulanate 125 mg tablet Allergies Allergy/AdvReac Type Severity Reaction Status Date / Time NSAIDS (Non-Steroidal Allergy Other Verified 04/13/23 14:32 Anti-Inflamma [facility] Disclaimer: The information contained in this section may have been updated after the patient was seen, as this information can be updated by other users. 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) Diabetes type 1, uncontrolled End stage renal disease Hypertension Seasonal allergies Surgical History , CHARGING OPERATOR) H/O gastric sleeve H/O tubal ligation History of delivery History of D&C Family History , CHARGING OPERATOR) Cancer Grandmother Mother Social History , CHARGING OPERATOR) Smoking Status: Current every day smoker alcohol intake: former substance use type: denies use current occupational status: disabled Travel in the last 8 weeks: None ROS Obtained: Yes All systems reviewed & no additional complaints except as documented Physical Exam General General appearance: alert and in no apparent distress Head Head exam: atraumatic and normocephalic Eye Eye exam: Present normal appearance, PERRL and EOMI ENT ENT exam: Present normal external ear exam and other (Mild posterior oropharyngeal erythema without exudate, right TM erythematous and bulging with clear fluid behind, left ear normal.) Neck Neck exam: Present normal inspection and full ROM Chest Chest inspection: Present normal inspection and symmetric chest wall rise; Absent tenderness Respiratory Respiratory exam: Present normal lung sounds bilaterally; Absent respiratory distress Cardiovascular Cardiovascular exam: Present regular rate and normal rhythm Abdominal Exam Abdominal exam: Present soft; Absent distention, tenderness or guarding Extremities Exam Extremities exam: Present normal inspection; Absent edema or joint swelling Back Exam Back exam: Present normal inspection; Absent tenderness Neurological Exam Neurological exam: Present alert and oriented X3; Absent motor sensory deficit Psychiatric Psychiatric exam: Present normal affect and normal mood Skin Skin exam: Present warm, dry and normal color Lymphatic Lymphatic Findings: no adenopathy Medical Decision Making Medical Records Medical records reviewed: Yes I reviewed the patient's medical records. Riaz Inquiry Pt receiving controlled substance: No Riaz was queried for this patient: No Vital Signs: 09/19/23 23:02 Temperature 98.4 F Temperature Source Oral Pulse Rate [Right] 91 H Respiratory Rate 16 Blood Pressure [Right Arm] 156/96 H Blood Pressure Mean [Right Arm] 116 02 Sat by Pulse Oximetry 100 Lab Data Lab results reviewed: Yes I reviewed the patient's lab results. Orders (Tests/Meds): ED MEDICATIONS Generic Name Dose Route Start Last Admin Trade Name Freq PRN Reason Stop Dose Admin Amoxicillin/Clavulanate Potassium 1 each 09/19/23 23:22 Amoxicillin/Pot Clavulan 500mg Tablet PO 09/19/23 23:23 ONCE ONE ECG Data Tracing #1: I reviewed this ECG and interpreted as documented below: Normal sinus rhythm, rate of 83, no concerning ST or T wave changes ECG initial impression date: 09/19/23 ECG initial impression time: 23:30 Medical Decision Narrative: 33-year-old female with history of type 1 diabetes and subsequent end-stage renal disease on nightly peritoneal dialysis presents with sore throat, right ear pain, painful cough for the last couple of days, was started on azithromycin 2 days ago by urgent care for strep throat. History was obtained interactive discussion with patient. On arrival, patient is [afebrile, hemodynamically stable, satting appropriately, alert, oriented x4, GCS 15], moving all extremities spontaneously. Full physical exam performed and significant for mild posterior oropharyngeal erythema, right TM erythema, bulging, Differential includes but is not limited to strep throat, otitis media, otitis externa, pneumonia, bronchitis. History and exam is consistent with strep throat and right otitis media. Normal vitals and normal lung sounds bilaterally, no concern for pneumonia at this time. We will switch patient from azithromycin to Augmentin for coverage of strep throat and otitis media. Patient is worried about possible bronchitis, Augmentin would cover as well. EKG independently interpreted by me and significant for normal sinus rhythm as documented above.. Labs and x-ray was considered, but deemed unnecessary due to history and exam. Procedures Risk/Benefits of Procedure(s) Were Explained: Yes Critical Care Critical Care Time Critical Care Time: No
[2023-09-19 23:38] VITALS: BP 143/87; PULSE 87; RESP 16; TEMP 37.2; O2SAT 99
[2023-09-19] MEDS: AMOXICILLIN/CLAVULANATE POTASSIUM 875/125MG TABLET 1 EACH PO (23:43)
== END 2023-09-19 23:43 | disposition home or self-care (01) ==
PROVIDERS: Emergency Provider Emergency Medicine; PCP Nurse Practitioner
DX: J02.0 Streptococcal pharyngitis (principal); R07.0 Pain in throat; H66.91 Otitis media, unspecified, right ear; R05.9 Cough, unspecified; E10.22 Type 1 diabetes mellitus with diabetic chronic kidney disease; N18.6 End stage renal disease; I12.0 Hypertensive chronic kidney disease with stage 5 chronic kidney disease or end stage renal disease; F17.210 Nicotine dependence, cigarettes, uncomplicated; Z99.2 Dependence on renal dialysis
CPT/HCPCS: 99283

== ENCOUNTER 2023-09-29 14:35 | Emergency (ER) | payer MEDICAID, SELFPAY ==
[2023-09-29 15:40] VITALS: BP 152/74; PULSE 79; RESP 21; TEMP 36.8; O2SAT 100; BMI 27.0
--- NOTE | 2023-09-29 15:44 | EXP.UTC ---
Discharge Plan Disposition Patient Disposition: Home, Self-Care Condition: Good Prescriptions Prescriptions: New cephalexin 500 mg capsule 500 mg PO BID 7 Days Qty: 14 0RF mupirocin 2 % ointment 1 applic topical TID 7 Days Qty: 15 0RF No Action carvedilol 25 mg Tablet 25 mg PO BID Rx Instructions: must administer with a meal/food loratadine 10 mg Tablet 10 mg PO DAILY ergocalciferol (vitamin D2) [Vitamin D2] 1,250 mcg (50,000 unit) capsule 1,250 mcg PO WEEKLY Patient Comments: TAKE 1 CAPSULE BY MOUTH ONCE PER WEEK (WEEKLY) sevelamer carbonate [Renvela] 800 mg tablet 800 mg PO TID Patient Comments: TAKE 1 TABLET BY MOUTH THREE TIMES A DAY WITH MEALS AND 1 TABLET WITH SNACKS azithromycin [azithromycin] 250 mg tablet 250 mg PO DIRECTED Qty: 6 0RF Rx Instructions: Take two (2) tablets on day #1, then one (1) tablet day #2 thru #5 amoxicillin-pot clavulanate 500-125 mg tablet 1 tab PO BID Qty: 20 0RF Referrals Follow up/Referrals: Provider,Referral, MD [Primary Care Provider] - See instructions Activity Restrictions/Add. Instructions Additional Instructions/Restrictions: Keep the wound clean and dry. Keep a dressing on it if you are going to be getting it dirty. Watch the wound for signs of infection, such as redness, swelling, drainage, fever. etc. Take tylenol for pain (if you can take this). Take cephalexin (antibiotics) as directed. I prescribed you the dose for someone on dialysis, but make sure you let your dialysis team know the medication and dose that you are taking anyway. Apply the topical antibiotic ointment (mupirocin) to the puncture wound site as directed. Follow up with your regular doctor. GO TO THE ER FOR ANY WORSENING SYMPTOMS OR CONCERNS. Clinical Impressions Clinical Impression: Puncture wound of right foot, Type 1 diabetes, End stage kidney disease, Need for Tdap vaccination Instructions Patient Instructions: Tetanus, Diphtheria, and Pertussis Vaccine, DI for Puncture Wound, Cephalexin Discharge [place] [facility] [place] General Stated complaint: AO 09/28 stepped on nail right foot Time Seen by Provider: 09/29/23 15:44 History of Present Illness Provider Complaint: She states that she stepped on a board with a nail sticking up out of it this morning with her right foot. She got a puncture wound to the bottom of her right foot near her heal area from that. She denies that the nail broke off in her foot. She states that she pulled it out easily and it was intact. She is a type 1 diabetic. She has End Stage Renal Disease and she on home hemodialysis. Her tetanus immunization is not up to date. Related Data Home Medications Medication Instructions Recorded Confirmed carvedilol 25 mg tablet 25 mg PO BID Hypertension 09/07/22 09/17/23 loratadine 10 mg tablet 10 mg PO DAILY seasonal allergies 09/07/22 09/17/23 ergocalciferol (vitamin D2) 1,250 1,250 mcg PO WEEKLY 09/17/23 09/17/23 mcg (50,000 unit) capsule (Vitamin D2) sevelamer carbonate 800 mg tablet 800 mg PO TID 09/17/23 09/17/23 (Renvela) Previous Rx's Medication Instructions Recorded azithromycin 250 mg tablet 250 mg PO DIRECTED #6 tabs 09/17/23 amoxicillin 500 mg-potassium 1 tab PO BID #20 tabs 09/19/23 clavulanate 125 mg tablet cephalexin 500 mg capsule 500 mg PO BID 7 days #14 caps 09/29/23 mupirocin 2 % topical ointment 1 applic topical TID 7 days #15 09/29/23 grams Allergies Allergy/AdvReac Type Severity Reaction Status Date / Time NSAIDS (Non-Steroidal Allergy Other Verified 04/13/23 14:32 Anti-Inflamma [facility] Disclaimer: The information contained in this section may have been updated after the patient was seen, as this information can be updated by other users. 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 , ONLINE JOURNALIST) Diabetes type 1, uncontrolled End stage renal disease Hypertension Seasonal allergies Surgical History , ONLINE JOURNALIST) H/O gastric sleeve H/O tubal ligation History of delivery History of D&C Family History , ONLINE JOURNALIST) Cancer Grandmother Mother Social History , ONLINE JOURNALIST) Smoking Status: Current every day smoker alcohol intake: former substance use type: denies use current occupational status: disabled Travel in the last 8 weeks: None ROS Obtained: Yes All systems reviewed & no additional complaints except as documented Constitutional Constitutional: Denies chills and Denies fever(s) Eyes Eyes: Denies eye discharge ENT Ears, Nose, Mouth, and Throat: Denies dizziness, Denies otalgia and Denies sore throat Cardiovascular Cardiovascular: Denies chest pain Respiratory Respiratory: Denies shortness of breath, Denies chest congestion, Denies cough, Denies stridor and Denies wheezing Gastrointestinal Gastrointestingal: Denies nausea or vomiting Musculoskeletal Musculoskeletal: Reports system reviewed and no additional complaints, except as documented and Denies arthralgias Integumentary/Breasts Skin/Breast: Reports as per HPI, Reports redness and Reports wounds Neurologic Neurologic: Denies dizziness and Denies paresthesias Allergic/Immunologic Allergic/Immunologic: Denies wheezing Physical Exam General General appearance: alert and in no apparent distress Head Head exam: atraumatic, normocephalic and normal inspection Eye Eye exam: Present normal appearance, PERRL and EOMI ENT ENT exam: Present normal exam, normal oropharynx, mucous membranes moist, TM's normal bilaterally and normal external ear exam Neck Neck exam: Present normal inspection, full ROM and trachea midline; Absent meningismus or lymphadenopathy Chest Chest inspection: Present normal inspection and symmetric chest wall rise; Absent tenderness Respiratory Respiratory exam: Present normal lung sounds bilaterally; Absent respiratory distress Cardiovascular Cardiovascular exam: Present regular rate and normal rhythm; Absent JVD Abdominal Exam Abdominal exam: Present soft and normal bowel sounds; Absent distention, tenderness or guarding Extremities Exam Extremities exam: Present normal inspection, full ROM and normal capillary refill; Absent calf tenderness Back Exam Back exam: Present normal inspection; Absent tenderness Neurological Exam Neurological exam: Present alert and oriented X3 Psychiatric Psychiatric exam: Present normal affect and normal mood Skin Skin exam: Present other (there is a small puncture wound on the bottom of her right foot near her heel. There is a small area of redness that surrounds it. There is no drainage from the wound.) Lymphatic Lymphatic Findings: no adenopathy Medical Decision Making Medical Records Medical records reviewed: No I reviewed the patient's medical records. Riaz Inquiry Pt receiving controlled substance: No Radiology Data #1: Image(s): Foot/Toes Image Reviewed: Yes I reviewed the patient's radiology image and Yes I have reviewed radiologist's interpretation Preliminary Findings: Normal/NAD FINAL REPORT CLINICAL HISTORY: FB CHECK, STEPPED ON NAIL COMPARISON: None FINDINGS: RIGHT FOOT: Three views of the right foot were obtained. There is no acute fracture or dislocation. The joint spaces are intact. There is no evidence of radiopaque foreign body. There is no soft tissue abnormality. IMPRESSION: No acute bony abnormality. No evidence of foreign body. Reviewed, Interpreted and Dictated by Maikol Leslie III, MD Transcribed by Mare Lynch Authenticated and [facility]
--- NOTE | 2023-09-29 15:49 | XR_ITS ---
FINAL REPORT CLINICAL HISTORY: FB CHECK, STEPPED ON NAIL COMPARISON: None FINDINGS: RIGHT FOOT: Three views of the right foot were obtained. There is no acute fracture or dislocation. The joint spaces are intact. There is no evidence of radiopaque foreign body. There is no soft tissue abnormality. IMPRESSION: No acute bony abnormality. No evidence of foreign body. Reviewed, Interpreted and Dictated by Maikol Leslie III, MD Transcribed by Mare Lynch Authenticated and . [facility]
[2023-09-29] MEDS: TET/DIPHTH/PERT-ADULT 0.5ML SYRINGE 0.5 ML IM (16:05)
[2023-09-29 16:17] VITALS: BP 152/74; PULSE 79; RESP 21; TEMP 36.8; O2SAT 100
== END 2023-09-29 16:23 | disposition home or self-care (01) ==
PROVIDERS: Emergency Provider Nurse Practitioner Family
DX: S91.341A Puncture wound with foreign body, right foot, initial encounter (principal); E10.22 Type 1 diabetes mellitus with diabetic chronic kidney disease; N18.6 End stage renal disease; Z23 Encounter for immunization; W45.0XXA Nail entering through skin, initial encounter; I12.0 Hypertensive chronic kidney disease with stage 5 chronic kidney disease or end stage renal disease; F17.200 Nicotine dependence, unspecified, uncomplicated
CPT/HCPCS: 73630; 90471; 90715; 99212; 99214; G0463

== ENCOUNTER 2023-11-15 10:08 | Emergency (ER) | payer MEDICAID, SELFPAY ==
--- OUTSIDE RECORDS SUMMARY | 2023-11-15 10:12 | XMS_ITS ---
Author Name Mukul Stevens Address [address] [place] [address] Phone [phone] Organization [facility], NA DOCUMENT DISCLAIMER Multiple document versions may exist, please be sure you review the latest version. The information in the [facility] Progress Note Document represents a providers documented clinical note containing certain health and medical information. It may not contain the complete medical history for the patient and should be independently verified. The represented time in the document is Eastern Time PROVIDER ROUNDING NOTE PD PROVIDER?ROUNDING?NOTE?PD Clinic:?[id number]?HOME?PROGRAM Visit?date:?11/08/2022?00:00?Modality/setting:?HCCPD Crystal?Gianni?-?Chart?#:?[id number] Method?of?Interaction:?Face?to?face Date?of?Interaction:?11/01/2023 ?-?Patient?is?stable ?-?Medications?and?labs?reviewed. Patient?issues?include: she?has?moved?out?of?the?stable?into?a?new?home Vitals Temperature:? Pulse:? Respirations: 97? 83? 18? Date:? 10/06/23? 08/30/23? 08/11/23? Weight?(kg):? Date/Height:? 89? 70? 71? 12/14/2022??? 165? ----- BP?(Sitting):? BP?(Standing):?&#1 60;? ----- 173/92? 174/115? 131/91? 180/97?&# 160;? 106/84? ----- Volume?Management?Comments: bp?improved?on?nifedipine PD?Prescription CCPD ??CCPD,?6X?Week,?EDW?72.5?(kg)?Ca?2.5?(mEq/L)&#160 ;Mg?0.5?(mEq/L),?Dextrose?1.5;?2.5; ??fill?vol?1800?mL?cyc?therapy?vol?7200?mL?cyc?therapy?time?8?hrs?10?min,?avg?d Adequacy/Transport ?Creatinine?Transport?Glucose?Transport?? ?&# 160;?D/P?Ratio?PET?4hr?D/DO?Ratio?PET 4hr? ?Average?Low12/28/22?? ?Average?Low12/28/22?? ?0.51&#1 60;?12/28/22?? ?0.43?12/28/22?-?-?& #160;??-?-?-?-?& #160;??-?-?Residual?Kt/V?PD?Kt/V&# 160;(Dialysate)?Total?Weekly?Kt/V?? Potassium,?Serum?mEq/L ?1.83?10/21/23?? ?1.00?10/21/23?? ?2.83?0 10/21/23?? ?4.8?10/21/23?? ?1.31?07/21/23?? ?1.03?07/21/23?? ?2.34?0 07/21/23?? ?5.3?09/16/23?? ?1.01?04/26/23?? ?0.81?04/26/23?? ?1.82?1 ?? ?4.7?08/22/23?Bicarbonate?mEq/L??? Creatinine?Serum?mg/dL ??& #160;??Sodium?mEq/L? BUN?mg/dL?20?10/21/23?? ?7.43?10/21/23?? ?139?&#16 0;??10/21/23?? ?55?10/21/23?? ?20?09/16/23?? ?6.62?09/16/23?? ?137?&#16 0;??09/16/23?? ?65?09/16/23?? ?24?08/22/23?? ?8.73?08/22/23?? ?140?&#16 0;??08/22/23?? ?64?08/22/23?? ?-?Adequacy?parameters?reviewed Adequacy ?-?Adequacy?target?met has?good?residual?renal?function?does?6days/week Anemia ?HGB?g/dL? Transferrin?Sat.?(Calc)?%?Ferritin?ng/mL&#160 ;?11.5?10/21/23?36?10/21/23?349 ?10/21/23?? ?11.4?09/16/23?24?09/16/23?426 ?07/21/23?? ?11.5?08/22/23?40?08/22/23?637 ?04/26/23?? ?-?Anemia?reviewed ?-?Anemia?targets?met not?on?zina Bone?and?Mineral?Metabolism ??Calcium,?Total?mg/dL?? Calcium,?Corrected?mg/dL ?&#1 60;??Phosphorous?mg/dL??? PTH-Intact,?Plasma?pg/mL ??8.6?10/21/23? 8.8?10/21/23?5.0&#16 0;?10/21/23?853?10/21/23?7.9?09/16/23? 8.1?09/16/23?5.2&#16 0;?09/16/23?1084?09/16/23?9.2?02/13/24? 10.5?08/22/23?4.7?&#1 60;?08/30/23?95?08/22/23?Vitamin?D?25?Hydroxy?ng/mL?44.8?07/21/23?45.3?03/29/23?18.1?11/08/22? PTH ?-?PTH?elevated ?-?Bone?and?mineral?metabolism?parameters?reviewed ?-?Calcium?controlled ?-?Phosphorus?controlled chloe?was?high?pth?low,?we?d/c?chloe?acetate,?calcitriol,&# 160;and?ergo.??then,?chloe?low and?pth?high?(95?to?1084!)??she?is?back?on?calcitriol?and?pth?moving?in?the right?direction Nutrition ?Albumin?g/dL?nPCR?g/kg/day?Glucose?mg/dL?3.8?10/21/23?? ?1.23?10/21/23?? ?206?10/21/23?? ?3.8?09/16/23?? ?1.14?07/21/23?? ?255?09/16/23?? ?3.9?08/22/23?? ?1.03?04/26/23?? ?234?08/22/23?? ?-?Nutrition?reviewed alb?improved Home?Medications ?Home?Medications?(updated:?10/21/2023?13:54:24) Patient:?Gianni, Crystal ??atorvastatin?(atorvastatin) 40?mg,?oral,?1?tablet?once?a?day ??calcitriol?(calcitriol) 0.5?mcg,?oral,?1?capsule?once?a?day ??carvedilol?(carvedilol) 25?mg,?oral,?1?tablet?twice?a?day ??Claritin?(loratadine) 10?mg,?oral,?1?tablet?once?a?day ??Colace?(docusate?sodium) 100?mg,?oral,?1?capsule?once?a?day [OTC] ??lactulose?(lactulose) 10?gram/15?mL,?oral,?30?ml?once?a?day [for?constipation,?may?repeat?dose?if?not?effective] ??lisinopril?(lisinopril) 10?mg,?oral,?1?tablet?at?bedtime ??nifedipine?(nifedipine) 30?mg,?oral,?1?tablet?once?a?day ??Renvela?(sevelamer?carbonate) 800?mg,?oral,?2?tablet?three?times?a?day [one?with?meals?one?with?snacks-restarted?in?Aug?2023] ??trazodone?(trazodone) 50?mg,?oral,?1?tablet?every?night?at?bedtime [take?50-100mg?at?bedtime] Access?Status?and?Evaluation Active?PD?Catheter ?Type ?Exit?Site?&#1 60;?Status?Access?ID?PDCatheter-Double?Cuff?Coiled?Lower?Quadrant-Lef t?Active?(In?Use)?[id number]?- ?-?&# 160;?-?-? Peritoneal?Access?Evaluation?(Erika?Criteria): Overall?Evaluation ?-?Perfect Peritoneal?Access?-?Exit?Site ?-?Site?looks?clean Peritoneal?Access?-?Tunnel ?-?Tunnel?tract?without?sign?of?infection Exam ?-?Vital?signs?reviewed Pulmonary ?-?LUNGS?-?clear Cardiovascular ?-?CV?-?Blood?pressure?noted ?-?CV?-?RRR Edema ?-?EXT?-?No?edema Interest?and?Eligibility?(If?changes?are?made,?Please?notify?SW?via?alert?below) ?Date?of?discussion?from?transplant?assessment:?03/09/2023 ?Patient?already?on?transplant?list??Yes ?Patient?interested?in?transplantation??Yes ?Has?patient's?physician?identified?one?or?more?exclusions per?the ?Contraindication?list?provided?by?the?transplant?center? ??No ?Patient?referred?for?transplantation??Yes,?per?physician?order ?Transplant?Comments: ??Per?Patient?she?is?active?on?UL?list,?and?request?to?be?referred?to?[facility]. ??8/23/23?continue?to?monitor?and?assist?with?transplant?process,?patient continues?to?follow?up?with?programs. ?Transplant[facility] ?Transplant?[facility] Tobacco?Cessation ??Tobacco?use:?Former?user ??Type:?Cigarettes ??Packs?per?day:? 1 ??Years?smoked:? 10 ??Frequency:?Daily Mukul?KAIDEN Stevens END OF DOCUMENT
--- OUTSIDE RECORDS SUMMARY | 2023-11-15 10:12 | XMS_ITS ---
Author Name Mukul Stevens Address [address] [place] [id number] Phone [phone] Organization [facility] e, NA DOCUMENT DISCLAIMER Multiple document versions may exist, please be sure you review the latest version. The information in the [facility] Progress Note Document represents a providers documented clinical note containing certain health and medical information. It may not contain the complete medical history for the patient and should be independently verified. The represented time in the document is Eastern Time PROVIDER ROUNDING NOTE PD PROVIDER?ROUNDING?NOTE?PD Clinic:?[id number]?HOME?PROGRAM Visit?date:?11/08/2022?00:00?Modality/setting:?HCCPD Crystal?Gianni?-?Chart?#:?[id number] Method?of?Interaction:?Face?to?face Date?of?Interaction:?08/30/2023 ?-?Patient?is?stable ?-?Medications?and?labs?reviewed. Patient?issues?include: no?complaints?today,?she?is?active?on?u?of?l?transplant?list,?was?called?for transplant?but?she?did?not?hear?her?phone?and?she?missed?it.??she?wants trazodone?for?sleep?melatonin/benadryl?ineffective Vitals Temperature:? Pulse:? Respirations: 97.4? 89? 16? Date:? 08/11/23? 06/30/23? 05/11/23? Weight?(kg):? Date/Height:? 71? 71.3? 70.4? 12/14/2022&# 160;?? 165? ----- BP?(Sitting):? BP?(Standing):?&#1 60;? ----- 131/91? 111/76? 111/84? 106/84? ----- Volume?Management?Comments: good PD?Prescription CCPD ??CCPD,?6X?Week,?EDW?69?(kg)?Ca?2.5?(mEq/L)?M g?0.5?(mEq/L),?Dextrose?1.5;?2.5;?4. ??fill?vol?1800?mL?cyc?therapy?vol?7200?mL?cyc?therapy?time?8?hrs?10?min,?avg?d Adequacy/Transport ?Creatinine?Transport?Glucose?Transport?? ?&# 160;?D/P?Ratio?PET?4hr?D/DO?Ratio?PET 4hr? ?Average?Low/?? ?Average?Low12/28/22?? ?0.51&#1 60;?12/28/22?? ?0.43?12/28/22?-?-?& #160;??-?-?-?-?& #160;??-?-?Residual?Kt/V?PD?Kt/V&# 160;(Dialysate)?Total?Weekly?Kt/V?? Potassium,?Serum?mEq/L ?1.31?07/21/23?? ?1.03?07/21/23?? ?2.34?0 07/21/23?? ?4.7?08/22/23?? ?1.01?04/26/23?? ?0.81?04/26/23?? ?1.82?1 ?? ?5.1?07/21/23?? ?1.70?01/19/23?? ?0.92?01/19/23?? ?2.62?0 01/19/23?? ?4.4?07/13/23?Bicarbonate?mEq/L??? Creatinine?Serum?mg/dL ??& #160;??Sodium?mEq/L? BUN?mg/dL?24?08/22/23?? ?8.73?08/22/23?? ?140?&#16 0;??08/22/23?? ?64?08/22/23?? ?25?07/21/23?? ?8.14?07/21/23?? ?142?&#16 0;??07/21/23?? ?61?07/21/23?? ?18?06/20/23?? ?8.80?06/20/23?? ?140?&#16 0;??06/20/23?? ?78?06/20/23?? ?-?Adequacy?parameters?reviewed Adequacy ?-?Adequacy?target?met kinetics?good Anemia ?HGB?g/dL? Transferrin?Sat.?(Calc)?%?Ferritin?ng/mL&#160 ;?11.5?08/22/23?40?08/22/23?426 ?07/21/23?? ?11.3?07/21/23?37?07/21/23?637 ?04/26/23?? ?10.2?06/20/23?43?06/20/23?243 ?01/19/23?? ?-?Anemia?reviewed ?-?Anemia?targets?met not?on?zina Bone?and?Mineral?Metabolism ??Calcium,?Total?mg/dL?? Calcium,?Corrected?mg/dL ?&#1 60;??Phosphorous?mg/dL??? PTH-Intact,?Plasma?pg/mL ??10.4?08/22/23?10.5?08/22/23?8.0??&# 160;?08/22/23?95?08/22/23?9.2?07/21/23? 9.4?07/21/23?6.1&#16 0;?07/21/23?282?07/21/23?8.9?06/20/23? 9.1?06/20/23?4.6&#16 0;?07/13/23?466?06/20/23?Vitamin?D?25?Hydroxy?ng/mL?44.8?07/21/23?45.3?03/29/23?18.1?11/08/22? PTH ?-?PTH?low ?-?Bone?and?mineral?metabolism?parameters?reviewed chloe?high?pth?low?will?d/c?chloe?acetate,?calcitriol,?and ergo.??repeat?chloe. continue?sevelamer?but?increase?the?dose?to?2?with?meals Nutrition ?Albumin?g/dL?nPCR?g/kg/day?Glucose?mg/dL?3.9?08/22/23?? ?1.14?07/21/23?? ?234?08/22/23?? ?3.8?07/21/23?? ?1.03?04/26/23?? ?133?07/21/23?? ?3.7?06/20/23?? ?1.18?01/19/23?? ?189?06/20/23?? ?-?Nutrition?reviewed alb?improved Home?Medications ?Home?Medications?(updated:?08/30/2023?14:12:05) Patient:?Gianni, Crystal ??atorvastatin?(atorvastatin) 40?mg,?oral,?1?tablet?once?a?day ??carvedilol?(carvedilol) 25?mg,?oral,?1?tablet?twice?a?day ??Claritin?(loratadine) 10?mg,?oral,?1?tablet?once?a?day ??Colace?(docusate?sodium) 100?mg,?oral,?1?capsule?once?a?day [OTC] ??lactulose?(lactulose) 10?gram/15?mL,?oral,?30?ml?once?a?day [for?constipation,?may?repeat?dose?if?not?effective] ??lisinopril?(lisinopril) 10?mg,?oral,?1?tablet?at?bedtime ??Renvela?(sevelamer?carbonate) 800?mg,?oral,?2?tablet?three?times?a?day [one?with?meals?one?with?snacks-restarted?in?Aug?2023] ??trazodone?(trazodone) 50?mg,?oral,?1?tablet?every?night?at?bedtime Access?Status?and?Evaluation Active?PD?Catheter ?Type ?Exit?Site?&#1 60;?Status?Access?ID?PDCatheter-Double?Cuff?Coiled?Lower?Quadrant-Lef t?Active?(In?Use)?[id number]?- ?-?&# 160;?-?-? Peritoneal?Access?Evaluation?(Erika?Criteria): Overall?Evaluation ?-?Perfect Peritoneal?Access?-?Exit?Site ?-?Site?looks?clean Peritoneal?Access?-?Tunnel ?-?Tunnel?tract?without?sign?of?infection Exam ?-?Vital?signs?reviewed Pulmonary ?-?LUNGS?-?clear Cardiovascular ?-?CV?-?Blood?pressure?noted ?-?CV?-?RRR Edema ?-?EXT?-?No?edema Interest?and?Eligibility?(If?changes?are?made,?Please?notify?SW?via?alert?below) ?Date?of?discussion?from?transplant?assessment:?03/09/2023 ?Patient?already?on?transplant?list??Yes ?Patient?interested?in?transplantation??Yes ?Has?patient's?physician?identified?one?or?more?exclusions per?the ?Contraindication?list?provided?by?the?transplant?center? ??No ?Patient?referred?for?transplantation??Yes,?per?physician?order ?Transplant?Comments: ??Per?Patient?she?is?active?on?UL?list,?and?request?to?be?referred?to?[facility]. ??03/09/23?continue?to?monitor?and?assist?with?transplant?process,?patient continues?to?follow?up?with?programs. ?Transplant?center/state:?[facility]?HOSPITAL ?Transplant?center/[facility]:?[facility] Tobacco?Cessation ??Tobacco?use:?Former?user ??Type:?Cigarettes ??Packs?per?day:? 1 ??Years?smoked:? 10 ??Frequency:?Daily Mukul?KAIDEN Stevens END OF DOCUMENT
--- OUTSIDE RECORDS SUMMARY | 2023-11-15 10:12 | XMS_ITS ---
Author Name Mukul Stevens Address [address] [place] [id number] Phone [phone] Organization [facility] e, NA DOCUMENT DISCLAIMER Multiple document versions may exist, please be sure you review the latest version. The information in the [facility] Progress Note Document represents a providers documented clinical note containing certain health and medical information. It may not contain the complete medical history for the patient and should be independently verified. The represented time in the document is Eastern Time PROVIDER ROUNDING NOTE PD PROVIDER?ROUNDING?NOTE?PD Clinic:?[id number]?PRO[facility] Visit?date:?11/08/2022?00:00?Modality/setting:?HCCPD Crystal?Gianni?-?Chart?#:?[id number] Method?of?Interaction:?Face?to?face Date?of?Interaction:?10/06/2023 ?-?Patient?is?stable ?-?Medications?and?labs?reviewed. Patient?issues?include: she?is?moving?into?a?new?home Vitals Temperature:? Pulse:? Respirations: 96.7? 84? 17? Date:? 08/30/23? 08/11/23? 06/30/23? Weight?(kg):? Date/Height:? 70? 71? 71.3? 12/14/2022??? 165? ----- BP?(Sitting):? BP?(Standing):?&#1 60;? ----- 174/115? 131/91? 111/76?&#1 60;??? 106/84? ----- Volume?Management?Comments: no?edema,?bp?not?ideally?controlled,?will?go?back?on nifedipine?60/day PD?Prescription CCPD ??CCPD,?6X?Week,?EDW?72.5?(kg)?Ca?2.5?(mEq/L)&#160 ;Mg?0.5?(mEq/L),?Dextrose?1.5;?2.5; ??fill?vol?1800?mL?cyc?therapy?vol?7200?mL?cyc?therapy?time?8?hrs?10?min,?avg?d Adequacy/Transport ?Creatinine?Transport?Glucose?Transport?? ?&# 160;?D/P?Ratio?PET?4hr?D/DO?Ratio?PET 4hr? ?Average?Low12/28/22?? ?Average?Low12/28/22?? ?0.51&#1 60;?12/28/22?? ?0.43?12/28/22?-?-?& #160;??-?-?-?-?& #160;??-?-?Residual?Kt/V?PD?Kt/V&# 160;(Dialysate)?Total?Weekly?Kt/V?? Potassium,?Serum?mEq/L ?1.31?07/21/23?? ?1.03?07/21/23?? ?2.34?0 07/21/23?? ?5.3?09/16/23?? ?1.01?04/26/23?? ?0.81?04/26/23?? ?1.82?1 ?? ?4.7?08/22/23?? ?1.70?01/19/23?? ?0.92?01/19/23?? ?2.62?0 01/19/23?? ?5.1?07/21/23?Bicarbonate?mEq/L??? Creatinine?Serum?mg/dL ??& #160;??Sodium?mEq/L? BUN?mg/dL?20?09/16/23?? ?6.62?09/16/23?? ?137?&#16 0;??09/16/23?? ?65?09/16/23?? ?24?08/22/23?? ?8.73?08/22/23?? ?140?&#16 0;??08/22/23?? ?64?08/22/23?? ?25?07/21/23?? ?8.14?07/21/23?? ?142?&#16 0;??07/21/23?? ?61?07/21/23?? ?-?Adequacy?parameters?reviewed Adequacy ?-?Adequacy?target?met kinetics?good Anemia ?HGB?g/dL? Transferrin?Sat.?(Calc)?%?Ferritin?ng/mL&#160 ;?11.4?09/16/23?24?09/16/23?426 ?07/21/23?? ?11.5?08/22/23?40?08/22/23?637 ?04/26/23?? ?11.3?07/21/23?37?07/21/23?243 ?01/19/23?? ?-?Anemia?reviewed not?on?zina Bone?and?Mineral?Metabolism ??Calcium,?Total?mg/dL?? Calcium,?Corrected?mg/dL ?&#1 60;??Phosphorous?mg/dL??? PTH-Intact,?Plasma?pg/mL ??7.9?09/16/23? 8.1?09/16/23?5.2&#16 0;?09/16/23?1084?09/16/23?9.2?08/30/23? 10.5?08/22/23?4.7?&#1 60;?08/30/23?95?08/22/23?10.4?08/22/23?9.4?07/21/23?8.0?&#1 60;?08/22/23?282?07/21/23?Vitamin?D?25?Hydroxy?ng/mL?44.8?07/21/23?45.3?03/29/23?18.1?11/08/22? PTH ?-?PTH?elevated ?-?Bone?and?mineral?metabolism?parameters?reviewed ?-?Calcium?controlled ?-?Phosphorus?controlled chloe?was?high?pth?low,?we?d/c?chloe?acetate,?calcitriol,&# 160;and?ergo.??now?chloe?low?and pth?high?(95?to?1084!)??will?go?back?on?calcitriol?0.25/day Nutrition ?Albumin?g/dL?nPCR?g/kg/day?Glucose?mg/dL?3.8?09/16/23?? ?1.14?07/21/23?? ?255?09/16/23?? ?3.9?08/22/23?? ?1.03?04/26/23?? ?234?08/22/23?? ?3.8?07/21/23?? ?1.18?01/19/23?? ?133?07/21/23?? ?-?Nutrition?reviewed alb?improved Home?Medications ?Home?Medications?(updated:?10/06/2023?13:48:14) Patient:?Gianin, Crystal ??atorvastatin?(atorvastatin) 40?mg,?oral,?1?tablet?once?a?day ??calcitriol?(calcitriol) 0.25?mcg,?oral,?1?capsule?once?a?day ??carvedilol?(carvedilol) 25?mg,?oral,?1?tablet?twice?a?day ??Claritin?(loratadine) 10?mg,?oral,?1?tablet?once?a?day ??Colace?(docusate?sodium) 100?mg,?oral,?1?capsule?once?a?day [OTC] ??lactulose?(lactulose) 10?gram/15?mL,?oral,?30?ml?once?a?day [for?constipation,?may?repeat?dose?if?not?effective] ??lisinopril?(lisinopril) 10?mg,?oral,?1?tablet?at?bedtime ??Renvela?(sevelamer?carbonate) 800?mg,?oral,?2?tablet?three?times?a?day [one?with?meals?one?with?snacks-restarted?in?Aug?2023] ??trazodone?(trazodone) 50?mg,?oral,?1?tablet?every?night?at?bedtime [take?50-100mg?at?bedtime] Access?Status?and?Evaluation Active?PD?Catheter ?Type ?Exit?Site?&#1 60;?Status?Access?ID?PDCatheter-Double?Cuff?Coiled?Lower?Quadrant-Lef t?Active?(In?Use)?[id number]?- ?-?&# 160;?-?-? Peritoneal?Access?Evaluation?(Erika?Criteria): Overall?Evaluation ?-?Perfect Peritoneal?Access?-?Exit?Site ?-?Site?looks?clean Peritoneal?Access?-?Tunnel ?-?Tunnel?tract?without?sign?of?infection Exam ?-?Vital?signs?reviewed Pulmonary ?-?LUNGS?-?clear Cardiovascular ?-?CV?-?Blood?pressure?noted ?-?CV?-?RRR Edema ?-?EXT?-?No?edema Interest?and?Eligibility?(If?changes?are?made,?Please?notify?SW?via?alert?below) ?Date?of?discussion?from?transplant?assessment:?03/09/2023 ?Patient?already?on?transplant?list??Yes ?Patient?interested?in?transplantation??Yes ?Has?patient's?physician?identified?one?or?more?exclusions per?the ?Contraindication?list?provided?by?the?transplant?center? ??No ?Patient?referred?for?transplantation??Yes,?per?physician?order ?Transplant?Comments: ??Per?Patient?she?is?active?on?UL?list,?and?request?to?be?referred?to?[facility]. ??03/09/23?continue?to?monitor?and?assist?with?transplant?process,?patient continues?to?follow?up?with?programs. ?Transplant?center/state:?[facility] ?Transplant?[facility]/state:?[facility] Tobacco?Cessation ??Tobacco?use:?Former?user ??Type:?Cigarettes ??Packs?per?day:? 1 ??Years?smoked:? 10 ??Frequency:?Daily Mukul?Hilda,? END OF DOCUMENT
[2023-11-15 10:15] VITALS: BP 151/88; PULSE 77; RESP 18; TEMP 36.8; O2SAT 100; BMI 26.4
--- NOTE | 2023-11-15 10:47 | ED_ITS ---
Discharge Plan Disposition Patient Disposition: Home, Self-Care Condition: Good Prescriptions Prescriptions: New amoxicillin 875 mg tablet 875 mg PO Q12H Qty: 20 0RF [id number]-qrixnyuie-[id number] [Bromfed DM] 2-30-10 mg/5 mL Syrup 5 ml PO Q6H PRN (Reason: Cough) Qty: 240 0RF No Action carvedilol 25 mg Tablet 25 mg PO BID Rx Instructions: must administer with a meal/food loratadine 10 mg Tablet 10 mg PO DAILY ergocalciferol (vitamin D2) [Vitamin D2] 1,250 mcg (50,000 unit) capsule 1,250 mcg PO WEEKLY Patient Comments: TAKE 1 CAPSULE BY MOUTH ONCE PER WEEK (WEEKLY) sevelamer carbonate [Renvela] 800 mg tablet 800 mg PO TID Patient Comments: TAKE 1 TABLET BY MOUTH THREE TIMES A DAY WITH MEALS AND 1 TABLET WITH SNACKS azithromycin [azithromycin] 250 mg tablet 250 mg PO DIRECTED Qty: 6 0RF Rx Instructions: Take two (2) tablets on day #1, then one (1) tablet day #2 thru #5 cephalexin 500 mg capsule 500 mg PO BID 7 Days Qty: 14 0RF mupirocin 2 % ointment 1 applic topical TID 7 Days Qty: 15 0RF amoxicillin-pot clavulanate 500-125 mg tablet 1 tab PO BID Qty: 20 0RF Referrals Follow up/Referrals: Maria A Soria APRN [Primary Care Provider] - See instructions Activity Restrictions/Add. Instructions Additional Instructions/Restrictions: Drink plenty of fluids. Take tylenol or ibuprofen for pain or fever. Take the medications as directed. Follow up with your regular doctor. GO TO THE ER FOR ANY WORSENING SYMPTOMS Throw your tooth brush away and get a new one. Clinical Impressions Clinical Impression: Strep throat Stand Alone Forms Stand Alone Forms: Work/School Release Instructions Patient Instructions: Strep Throat, DI for Strep Throat Discharge ED Provider: Long Nicolas [facility] General Stated complaint: cough, sore throat Mode of Arrival: Ambulatory Source of Information: Patient Limitations: No Limitations Time Seen by Provider: 11/15/23 10:42 Description of Symptoms (Recalled from Triage Doc. by RN): Pt's symptoms are cough, and sore throat. HEENT Symptoms (Recalled from RN notes): Yes Resp Symptoms (Recalled from RN notes): No Skin Symptoms (Recalled from RN notes): No MS Symptoms (Recalled from RN notes): No Functional Status (Recalled from RN notes): n/a History of Present Illness Provider Complaint: She states that for the past 2 days she has had sore throat, fever, and malaise. Related Data Home Medications Medication Instructions Recorded Confirmed carvedilol 25 mg tablet 25 mg PO BID Hypertension 09/07/22 09/17/23 loratadine 10 mg tablet 10 mg PO DAILY seasonal allergies 09/07/22 09/17/23 ergocalciferol (vitamin D2) 1,250 1,250 mcg PO WEEKLY 09/17/23 09/17/23 mcg (50,000 unit) capsule (Vitamin D2) sevelamer carbonate 800 mg tablet 800 mg PO TID 09/17/23 09/17/23 (Renvela) Previous Rx's Medication Instructions Recorded azithromycin 250 mg tablet 250 mg PO DIRECTED #6 tabs 09/17/23 amoxicillin 500 mg-potassium 1 tab PO BID #20 tabs 09/19/23 clavulanate 125 mg tablet cephalexin 500 mg capsule 500 mg PO BID 7 days #14 caps 09/29/23 mupirocin 2 % topical ointment 1 applic topical TID 7 days #15 09/29/23 grams amoxicillin 875 mg tablet 875 mg PO Q12H #20 tabs 11/15/23 hkjdcezkfnqbyuy-nvzbhhswktkcaud-FH 5 ml PO Q6H PRN Cough #240 mL 11/15/23 2 mg-30 mg-10 mg/5 mL oral syrup (Bromfed DM) Allergies Allergy/AdvReac Type Severity Reaction Status Date / Time NSAIDS (Non-Steroidal Allergy Other Verified 11/15/23 10:34 Anti-Inflamma Worker's Comp Is this a Worker's Comp case?: No [facility] Disclaimer: The information contained in this section may have been updated after the patient was seen, as this information can be updated by other users. 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 (Reviewed 09/17/23 @ 10:43 by Liv Chawla ([facility] [employer]) Diabetes type 1, uncontrolled End stage renal disease Hypertension Seasonal allergies Surgical History (Reviewed 09/17/23 @ 10:43 by Liv Chawla ([facility] [employer]) H/O gastric sleeve H/O tubal ligation History of delivery History of D&C Family History (Reviewed 09/17/23 @ 10:43 by [facility] [employer]) Cancer Grandmother Mother Social History Smoking Status: Current every day smoker alcohol intake: former substance use type: denies use current occupational status: disabled Travel in the last 8 weeks: None ROS Obtained: Yes All systems reviewed & no additional complaints except as documented Constitutional Constitutional: Reports chills and Reports fever(s) Eyes Eyes: Denies eye discharge ENT Ears, Nose, Mouth, and Throat: Reports as per HPI Cardiovascular Cardiovascular: Denies chest pain Respiratory Respiratory: Denies chest congestion and Reports cough Gastrointestinal Gastrointestingal: Reports nausea; Denies abdominal pain, constipation, cramping, diarrhea or vomiting Musculoskeletal Musculoskeletal: Denies arthralgias Integumentary/Breasts Skin/Breast: Denies rash Neurologic Neurologic: Denies paresthesias Physical Exam General General appearance: alert and in no apparent distress Head Head exam: atraumatic, normocephalic and normal inspection Eye Eye exam: Present normal appearance, PERRL and EOMI ENT ENT exam: Present mucous membranes moist and normal external ear exam Expanded ENT Exam TM/Canal exam: Bilateral TM: erythema and bulging Nose exam: Absent sinus tenderness Mouth exam: Present normal external inspection; Absent drooling Teeth exam: Present normal inspection Throat exam: Present tonsillar erythema, tonsillomegaly and tonsillar exudate Neck Neck exam: Present normal inspection, full ROM and trachea midline; Absent tenderness, meningismus or lymphadenopathy Chest Chest inspection: Present normal inspection and symmetric chest wall rise; Absent tenderness Respiratory Respiratory exam: Present normal lung sounds bilaterally; Absent respiratory dis tress, wheezes, stridor or accessory muscle use Cardiovascular Cardiovascular exam: Present regular rate and normal rhythm; Absent systolic murmur or diastolic murmur Abdominal Exam Abdominal exam: Present soft and normal bowel sounds; Absent distention, tenderness, guarding, rebound or rigidity Extremities Exam Extremities exam: Present normal inspection and normal capillary refill; Absent calf tenderness Back Exam Back exam: Present normal inspection and full ROM; Absent tenderness, CVA tenderness (R) or CVA tenderness (L) Neurological Exam Neurological exam: Present alert, oriented X3 and CN II-XII intact Psychiatric Psychiatric exam: Present normal affect and normal mood Skin Skin exam: Present warm, dry, intact and normal color Medical Decision Making Medical Records Medical records reviewed: No I reviewed the patient's medical records. Riaz Inquiry Pt receiving controlled substance: No Vital Signs: 11/15/23 10:15 Temperature 98.3 F Temperature Source Oral Pulse Rate [Right Radial] 77 Respiratory Rate 18 Blood Pressure [Right Arm] 151/88 H Blood Pressure Mean [Right Arm] 109 Blood Pressure Source [Right Arm] Automatic Cuff Blood Pressure Position [Right Arm] Sitting 02 Sat by Pulse Oximetry 100 Oxygen Delivery Method Room Air Lab Data Lab results reviewed: Yes I reviewed the patient's lab results.
[2023-11-15 10:50] LABS: UTC Strep Screen (Rapid) Positive (Negative)
[2023-11-15 11:26] VITALS: BP 151/88; PULSE 77; RESP 18; TEMP 36.8; O2SAT 100
== END 2023-11-15 11:26 | disposition home or self-care (01) ==
PROVIDERS: Emergency Provider Nurse Practitioner Family; PCP Nurse Practitioner
DX: J02.0 Streptococcal pharyngitis (principal); R07.0 Pain in throat; R50.9 Fever, unspecified; R05.9 Cough, unspecified
CPT/HCPCS: 87880; 99212; 99214; G0463

== ENCOUNTER 2023-11-29 07:43 | Emergency (ER) | payer MEDICAID, SELFPAY ==
[2023-11-29 07:51] VITALS: BMI 27.4
[2023-11-29 07:52] VITALS: BP 158/95; PULSE 72; RESP 20; TEMP 36.8; O2SAT 100; BMI 27.6
--- NOTE | 2023-11-29 07:52 | XR_ITS ---
FINAL REPORT CLINICAL HISTORY: Left shoulder injury COMPARISON: None FINDINGS: LEFT SHOULDER 3 views demonstrate no acute fracture or dislocation. The joint spaces appear normal. The visualized bony structures are well aligned. No soft tissue abnormality is seen. IMPRESSION: No acute process. Reviewed, Interpreted and Dictated by Maikol Leslie III, MD Transcribed by Mare Lynch Authenticated and . [facility]
--- NOTE | 2023-11-29 07:52 | XR_ITS ---
FINAL REPORT CLINICAL HISTORY: Left elbow injury COMPARISON: None FINDINGS: LEFT ELBOW 3 views were obtained. There is no acute fracture or dislocation. There is no joint effusion. Mild degenerative change is noted. There is no soft tissue abnormality. IMPRESSION: No acute bony abnormality. Reviewed, Interpreted and Dictated by Maikol Leslie III, MD Transcribed by Mare Lynch Authenticated and [facility]
--- NOTE | 2023-11-29 07:54 | PC.NURSE ---
Dr. Love at [facility] for pt eval
--- NOTE | 2023-11-29 07:56 | XR_ITS ---
FINAL REPORT CLINICAL HISTORY: trunk closed on arm, upper arm pain COMPARISON: None FINDINGS: Two views of the left humerus were obtained. There is no acute fracture or dislocation. The joint spaces are well preserved. There is no acute soft tissue abnormality. IMPRESSION: No acute abnormality identified. Reviewed, Interpreted and Dictated by Maikol Leslie III, MD Transcribed by Mare Lynch Authenticated and [facility]
--- NOTE | 2023-11-29 07:57 | HMH.EDGENADL ---
Discharge Plan Disposition Patient Disposition: Home, Self-Care Condition: Good Prescriptions Prescriptions: No Action carvedilol 25 mg Tablet 25 mg PO BID Rx Instructions: must administer with a meal/food loratadine 10 mg Tablet 10 mg PO DAILY ergocalciferol (vitamin D2) [Vitamin D2] 1,250 mcg (50,000 unit) capsule 1,250 mcg PO WEEKLY Patient Comments: TAKE 1 CAPSULE BY MOUTH ONCE PER WEEK (WEEKLY) sevelamer carbonate [Renvela] 800 mg tablet 800 mg PO TID Patient Comments: TAKE 1 TABLET BY MOUTH THREE TIMES A DAY WITH MEALS AND 1 TABLET WITH SNACKS nifedipine 30 mg tablet extended release 30 mg PO DAILY calcitriol 0.5 mcg capsule 0.5 mcg PO DAILY Patient Comments: TAKE 2 CAPSULES BY MOUTH ONCE DAILY lisinopril 10 mg tablet 10 mg PO DAILY Patient Comments: TAKE 1 TABLET BY MOUTH AT BEDTIME Referrals Follow up/Referrals: Maria A Soria APRN [Primary Care Provider] - See instructions Activity Restrictions/Add. Instructions Additional Instructions/Restrictions: You were evaluated in the emergency department today. At this time, your x-rays do not demonstrate any acute fractures or broken bones. I feel that you likely have a hematoma or collection of blood underneath your skin. Please apply ice as needed for pain. Take Tylenol at home as needed for pain. Follow-up closely with your primary care provider for reassessment. Return to the emergency department for new or worsening symptoms. Clinical Impressions Clinical Impression: Hematoma of left upper extremity Stand Alone Forms Stand Alone Forms: Work/School Release Instructions Patient Instructions: DI for Hematoma (Bruise) Discharge ED Provider: Nancy Love General Adult HPI General Chief complaint: Extremity Problem,Nontraumatic Stated complaint: ao truck fell on left arm Time Seen by Provider: 11/29/23 07:50 History of Present Illness HPI narrative: This patient is a 33-year-old female with a history of type 1 diabetes, end-stage renal disease on dialysis, and prior left elbow fracture presenting to the emergency department for evaluation with concern for left upper arm pain. She reports that she was working on her car when her trunk closed on her arm. No other concerns noted. No other injuries. She denies any numbness, tingling, or other issues. This happened just prior to arrival. Related Data Home Medications Medication Instructions Recorded Confirmed carvedilol 25 mg tablet 25 mg PO BID Hypertension 09/07/22 11/29/23 loratadine 10 mg tablet 10 mg PO DAILY seasonal allergies 09/07/22 11/29/23 ergocalciferol (vitamin D2) 1,250 1,250 mcg PO WEEKLY 09/17/23 11/29/23 mcg (50,000 unit) capsule (Vitamin D2) sevelamer carbonate 800 mg tablet 800 mg PO TID 09/17/23 11/29/23 (Renvela) calcitriol 0.5 mcg capsule 0.5 mcg PO DAILY 11/29/23 11/29/23 lisinopril 10 mg tablet 10 mg PO DAILY 11/29/23 11/29/23 nifedipine 30 mg tablet,extended 30 mg PO DAILY 11/29/23 11/29/23 release Allergies Allergy/AdvReac Type Severity Reaction Status Date / Time NSAIDS (Non-Steroidal Allergy Other Verified 11/15/23 10:34 Anti-Inflamma PFSH [facility] Disclaimer: The information contained in this section may have been updated after the patient was seen, as this information can be updated by other users. 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 End stage renal disease Hypertension Seasonal allergies Diabetes type 1, uncontrolled Surgical History History of D&C History of delivery H/O tubal ligation H/O gastric sleeve Family History Grandmother Cancer Mother Cancer Social History Smoking Status: Current every day smoker alcohol intake: former substance use type: denies use current occupational status: disabled Travel in the last 8 weeks: None ROS Obtained: Yes All systems reviewed & no additional complaints except as documented Physical Exam General General appearance: alert and in no apparent distress Head Head exam: atraumatic and normocephalic Eye Eye exam: Present normal appearance, PERRL and EOMI ENT ENT exam: Present normal exam, normal oropharynx, mucous membranes moist and normal external ear exam Neck Neck exam: Present normal inspection, full ROM and trachea midline; Absent tenderness Chest Chest inspection: Present normal inspection and symmetric chest wall rise; Absent tenderness Respiratory Respiratory exam: Present normal lung sounds bilaterally; Absent respiratory distress, wheezes, stridor or accessory muscle use Cardiovascular Cardiovascular exam: Present regular rate and normal rhythm Abdominal Exam Abdominal exam: Present soft; Absent distention, tenderness or guarding Extremities Exam Extremities exam: Present full ROM, tenderness and normal capillary refill; Absent edema Expanded Upper Extremity Exam Left: L/R Arms Top View: 1. large bruise with tenderness to palpation. All compartments soft. Neurovascularly intact distally. Back Exam Back exam: Present normal inspection and full ROM; Absent tenderness Neurological Exam Neurological exam: Present alert, oriented X3, CN II-XII intact and normal gait; Absent motor sensory deficit Psychiatric Psychiatric exam: Present normal affect and normal mood Skin Skin exam: Present warm and dry Medical Decision Making Medical Records Medical records reviewed: Yes I reviewed the patient's medical records. Riaz Inquiry Pt receiving controlled substance: No Vital Signs: 11/29/23 07:52 11/29/23 08:00 11/29/23 09:00 Temperature 98.3 F Temperature Source Oral Pulse Rate 74 64 Pulse Rate [Left Radial] 72 Respiratory Rate 20 Blood Pressure 135/81 130/82 Blood Pressure [Right Arm] 158/95 H Blood Pressure Mean 108 Blood Pressure Mean [Right Arm] 116 02 Sat by Pulse Oximetry 100 99 100 Oxygen Delivery Method Room Air Lab Data Lab results reviewed: Yes I reviewed the patient's lab results. Orders (Tests/Meds): ED MEDICATIONS Discontinued Medications Generic Name Dose Route Start Last Admin Trade Name Freq PRN Reason Stop Dose Admin Acetaminophen 1,000 mg 11/29/23 07:57 11/29/23 08:02 Acetaminophen 500mg Tab PO 11/29/23 07:58 1,000 mg ONCE ONE Administration ORDERS Category Date Time Status Elbow XR left mininum 3 views [XR elbow LT min 3V] Stat Exams 11/29/23 07:52 Completed XR humerus LT Stat Exams 11/29/23 07:56 Completed XR shoulder LT min 2V Stat Exams 11/29/23 07:52 Completed Medical Decision Narrative: In summary, this patient is a 33-year-old female presenting to the Emergency Department for evaluation of left upper arm pain after a car trunk closed on her arm. Differential diagnoses considered include but are not limited to fracture, contusion, strain/pain, hematoma, neurovascular injury. Ruling out the most morbid conditions drove assessment. It should be noted patient's history includes renal disease and diabetes which may or may not be at goal therapy. This complicates all aspects of care by increasing patient's risk for morbidity. On exam, the patient is well-appearing. Her arm is neurovascularly intact with a bruise to her left upper arm. All compartments soft. Workup included strays of the left shoulder, humerus, and elbow. She was given oral Tylenol for pain. I independently interpreted x-rays prior to the radiologist read and noted no acute fracture or bony abnormality. Please see their read for final interpretation. At this time, I feel the patient is appropriate for discharge home with instructions for supportive management of hematoma to left upper arm. She was given strict return precautions and was discharged after all questions were answered. Critical Care Critical Care Time Critical Care Time: No
[2023-11-29 08:00] VITALS: BP 135/81; PULSE 74; O2SAT 99
[2023-11-29] MEDS: ACETAMINOPHEN 500MG TAB 1000 MG PO (08:02)
--- OUTSIDE RECORDS SUMMARY | 2023-11-29 08:11 | XMS_ITS ---
Author Name Mukul Stevens Address [address] [place] [address] Phone [phone] Organization [facility], NA DOCUMENT DISCLAIMER Multiple document versions may exist, please be sure you review the latest version. The information in the [facility] [place] Progress Note Document represents a providers documented clinical note containing certain health and medical information. It may not contain the complete medical history for the patient and should be independently verified. The represented time in the document is Eastern Time PROVIDER ROUNDING NOTE PD PROVIDER?ROUNDING?NOTE?PD Clinic:?[id number]?HOME?PROGRAM Visit?date:?11/08/2022?00:00?Modality/setting:?HCCPD Crystal?Gianni?-?Chart?#:?[id number] Method?of?Interaction:?Via?Telephone Reason:?Other Comments:?no?transportation Date?of?Interaction:?11/24/2023 ?-?Patient?is?stable ?-?Medications?and?labs?reviewed. Patient?issues?include: she?has?moved?out?of?the?stable?into?a?new?home Vitals Temperature:? Pulse:? Respirations: 98? 79? 16? Date:? 11/24/23? 10/06/23? 08/30/23? Weight?(kg):? Date/Height:? 68.7? 89? 70? 12/14/2022??? 165? ----- BP?(Sitting):? BP?(Standing):?&#1 60;? ----- 128/86? 173/92? 174/115?&#1 60;??? 180/97? ----- Volume?Management?Comments: bp?improved?on?nifedipine PD?Prescription CCPD ??CCPD,?6X?Week,?EDW?72.5?(kg)?Ca?2.5?(mEq/L)&#160 ;Mg?0.5?(mEq/L),?Dextrose?1.5;?2.5; ??fill?vol?1800?mL?cyc?therapy?vol?7200?mL?cyc?therapy?time?8?hrs?10?min,?avg?d Adequacy/Transport ?Creatinine?Transport?Glucose?Transport?? ?&# 160;?D/P?Ratio?PET?4hr?D/DO?Ratio?PET 4hr? ?Average?Low12/28/22?? ?Average?Low12/28/22?? ?0.51&#1 60;?12/28/22?? ?0.43?12/28/22?-?-?& #160;??-?-?-?-?& #160;??-?-?Residual?Kt/V?PD?Kt/V&# 160;(Dialysate)?Total?Weekly?Kt/V?? Potassium,?Serum?mEq/L ?1.83?10/21/23?? ?1.00?10/21/23?? ?2.83?0 10/21/23?? ?4.6?11/18/23?? ?1.31?07/21/23?? ?1.03?07/21/23?? ?2.34?0 07/21/23?? ?4.8?10/21/23?? ?1.01?04/26/23?? ?0.81?04/26/23?? ?1.82?1 ?? ?5.3?09/16/23?Bicarbonate?mEq/L??? Creatinine?Serum?mg/dL ??& #160;??Sodium?mEq/L? BUN?mg/dL?21?11/18/23?? ?6.58?11/18/23?? ?142?&#16 0;??11/18/23?? ?55?11/18/23?? ?20?10/21/23?? ?7.43?10/21/23?? ?139?&#16 0;??10/21/23?? ?55?10/21/23?? ?20?09/16/23?? ?6.62?09/16/23?? ?137?&#16 0;??09/16/23?? ?65?09/16/23?? ?-?Adequacy?parameters?reviewed Adequacy ?-?Adequacy?target?met has?good?residual?renal?function?does?6days/week Anemia ?HGB?g/dL? Transferrin?Sat.?(Calc)?%?Ferritin?ng/mL&#160 ;?12.0?11/18/23?35?11/18/23?349 ?10/21/23?? ?11.5?10/21/23?36?10/21/23?426 ?07/21/23?? ?11.4?09/16/23?24?09/16/23?637 ?04/26/23?? ?-?Anemia?reviewed ?-?Anemia?targets?met not?on?zina Bone?and?Mineral?Metabolism ??Calcium,?Total?mg/dL?? Calcium,?Corrected?mg/dL ?&#1 60;??Phosphorous?mg/dL??? PTH-Intact,?Plasma?pg/mL ??8.4?11/18/23? 8.3?11/18/23?5.3&#16 0;?11/18/23?1429?11/18/23?8.6?10/21/23? 8.8?10/21/23?5.0&#16 0;?10/21/23?853?10/21/23?7.9?09/16/23? 8.1?09/16/23?5.2&#16 0;?09/16/23?1084?09/16/23?Vitamin?D?25?Hydroxy?ng/mL?44.8?07/21/23?45.3?03/29/23?18.1?11/08/22? PTH ?-?PTH?elevated ?-?Bone?and?mineral?metabolism?parameters?reviewed chloe?was?high?pth?low,?we?d/c?chloe?acetate,?calcitriol,&# 160;and?ergo.??then,?chloe?low and?pth?high?(95?to?1084!)??she?is?back?on?calcitriol?and?pth?dropped?to?853?but now?up?to?3479.??will?double?calcitriol?to?1.0mcg/day Nutrition ?Albumin?g/dL?nPCR?g/kg/day?Glucose?mg/dL?4.1?11/18/23?? ?1.23?10/21/23?? ?66?11/18/23?? ?3.8?10/21/23?? ?1.14?07/21/23?? ?206?10/21/23?? ?3.8?09/16/23?? ?1.03?04/26/23?? ?255?09/16/23?? ?-?Nutrition?reviewed alb?improved Home?Medications ?Home?Medications?(updated:?11/24/2023?11:45:11) Patient:?Gianni, Crystal ??atorvastatin?(atorvastatin) 40?mg,?oral,?1?tablet?once?a?day ??calcitriol?(calcitriol) 0.5?mcg,?oral,?2?capsule?once?a?day ??carvedilol?(carvedilol) 25?mg,?oral,?1?tablet?twice?a?day ??Claritin?(loratadine) 10?mg,?oral,?1?tablet?once?a?day ??Colace?(docusate?sodium) 100?mg,?oral,?1?capsule?once?a?day [OTC] ??lactulose?(lactulose) 10?gram/15?mL,?oral,?30?ml?once?a?day [for?constipation,?may?repeat?dose?if?not?effective] ??lisinopril?(lisinopril) 10?mg,?oral,?1?tablet?at?bedtime ??nifedipine?(nifedipine) 30?mg,?oral,?1?tablet?once?a?day ??Renvela?(sevelamer?carbonate) 800?mg,?oral,?2?tablet?three?times?a?day [one?with?meals?one?with?snacks-restarted?in?Aug?2023] Access?Status?and?Evaluation Active?PD?Catheter ?Type ?Exit?Site?&#1 60;?Status?Access?ID?PDCatheter-Double?Cuff?Coiled?Lower?Quadrant-Lef t?Active?(In?Use)?[id number]?- ?-?&# 160;?-?-? Peritoneal?Access?Evaluation?(Erika?Criteria): Overall?Evaluation ?-?Perfect Peritoneal?Access?-?Exit?Site ?-?Site?looks?clean Peritoneal?Access?-?Tunnel ?-?Tunnel?tract?without?sign?of?infection Exam ?-?Vital?signs?reviewed Pulmonary ?-?LUNGS?-?clear Cardiovascular ?-?CV?-?Blood?pressure?noted ?-?CV?-?RRR Edema ?-?EXT?-?No?edema Interest?and?Eligibility?(If?changes?are?made,?Please?notify?SW?via?alert?below) ?Date?of?discussion?from?transplant?assessment:?03/09/2023 ?Patient?already?on?transplant?list??Yes ?Patient?interested?in?transplantation??Yes ?Has?patient's?physician?identified?one?or?more?exclusions per?the ?Contraindication?list?provided?by?the?transplant?center? ??No ?Patient?referred?for?transplantation??Yes,?per?physician?order ?Transplant?Comments: ??Per?Patient?she?is?active?on?UL?list,?and?request?to?be?referred?to?[facility]. ??03/09/23?continue?to?monitor?and?assist?with?transplant?process,?patient continues?to?follow?up?with?programs. ?Transplant?[facility]/state:?[facility] ?Transplant?[facility]/state:?[facility] Tobacco?Cessation ??Tobacco?use:?Former?user ??Type:?Cigarettes ??Packs?per?day:? 1 ??Years?smoked:? 10 ??Frequency:?Daily Mukul?Hilda,? END OF DOCUMENT
--- NOTE | 2023-11-29 08:17 | PC.NURSE ---
Patient gone to XRay at this time.
--- NOTE | 2023-11-29 08:31 | PC.NURSE ---
patient back in room at this time.
[2023-11-29 09:00] VITALS: BP 130/82; PULSE 64; O2SAT 100
[2023-11-29 09:11] VITALS: BP 130/82; PULSE 62; RESP 20; TEMP 36.8; O2SAT 100
== END 2023-11-29 09:14 | disposition home or self-care (01) ==
PROVIDERS: Emergency Provider Emergency Medicine; PCP Nurse Practitioner
DX: M79.622 Pain in left upper arm; S40.022A Contusion of left upper arm, initial encounter; W23.0XXA Caught, crushed, jammed, or pinched between moving objects, initial encounter; E10.22 Type 1 diabetes mellitus with diabetic chronic kidney disease; N18.6 End stage renal disease; F17.210 Nicotine dependence, cigarettes, uncomplicated; Z99.2 Dependence on renal dialysis
CPT/HCPCS: 73030; 73060; 73080; 99283

== ENCOUNTER 2023-12-08 08:07 | Outpatient (CLI) | payer MEDICAID, SELFPAY ==
[2023-12-08 08:55] LABS: Basophils % 0.2 % (0.1-2.0); Eosinophils # 0.1 K/mm3 (0.0-0.4); Eosinophils % 1.4 % (0.1-12.0); Hematocrit 29.6 % (37.0-47.0); Hemoglobin 9.6 g/dL (12.2-16.2); Lymphocytes # 0.3 K/mm3 (0.7-4.5); Lymphocytes % 6.4 % (10-50); Mean Corpuscular HGB Conc 32.5 g/dL (31.8-35.4); Mean Corpuscular Hemoglobin 32.1 pg (27.0-31.2); Mean Corpuscular Volume 99.1 fl (81-99); Mean Platelet Volume 10.3 fl (7.4-10.4); Monocytes # 0.3 K/mm3 (0.1-1.0); Monocytes % 6.2 % (1.7-9.3); Neutrophils # 3.8 K/mm3 (1.8-7.8); Neutrophils % 85.7 % (37.0-80.0); Platelet Count 86 K/mm3 (142-424); Red Blood Count 2.99 M/mm3 (4.20-5.40); White Blood Count 4.4 K/mm3 (4.8-10.8)
[2023-12-08 09:07] LABS: MANUAL DIFFERENTIAL MANUAL DIFFERENTIAL (MANUAL DIFF)
[2023-12-08 09:27] LABS: Lymphocytes % 4 % (10-50); Monocytes % 3 % (2-9); Neutrophils % 93 % (42-76); Total Cells Counted 100
[2023-12-08 09:28] LABS: Platelet Estimate Moderate Decrease; RBC Morphology Normal
[2023-12-08 10:17] LABS: Alanine Aminotransferase 21 U/L (12-78); Albumin Level 2.8 g/dl (3.5-5.0); Albumin/Globulin Ratio 1.3 (1.1-1.8); Alkaline Phosphatase 58 U/L (38-126); Anion Gap 10.8 mEq/L (5-15); Aspartate Amino Transferase 24 U/L (14-36); Bilirubin,Total 0.4 mg/dl (0.2-1.3); Blood Urea Nitrogen 30 mg/dl (7-17); Calcium 8.7 mg/dl (8.4-10.2); Carbon Dioxide 23 mmol/L (22.0-30.0); Chloride 112 mmol/L (98-107); Estimated Glomerular Filt Rate 43 ml/min (>60); GFR (African American) 52 ML/MIN (>60); Globulin 2.2 g/dL (1.3-3.2); Glucose 105 mg/dl (74-100); Potassium 4.8 mmoL/L (3.5-5.1); Sodium 141 mmol/L (136-145)
[2023-12-12 12:47] LABS: Tacrolimus (Prograf) 5.4
== END 2023-12-08 23:59 | disposition home or self-care (01) ==
PROVIDERS: PCP Nurse Practitioner; Visit Provider Nurse Practitioner Family
DX: Z94.0 Kidney transplant status (principal); Z94.83 Pancreas transplant status; E11.9 Type 2 diabetes mellitus without complications; E83.42 Hypomagnesemia; I10 Essential (primary) hypertension
CPT/HCPCS: 36415; 80053; 80197; 84100; 85007; 85025

== ENCOUNTER 2023-12-12 08:08 | Outpatient (CLI) | payer MEDICAID, SELFPAY ==
[2023-12-12 08:58] LABS: Basophils # 0.1 K/mm3 (0-0.2); Basophils % 0.6 % (0.1-2.0); Eosinophils # 0.2 K/mm3 (0.0-0.4); Eosinophils % 1.6 % (0.1-12.0); Hematocrit 32.5 % (37.0-47.0); Hemoglobin 10.5 g/dL (12.2-16.2); Lymphocytes # 0.5 K/mm3 (0.7-4.5); Lymphocytes % 4.6 % (10-50); Mean Corpuscular HGB Conc 32.2 g/dL (31.8-35.4); Mean Corpuscular Volume 99.2 fl (81-99); Mean Platelet Volume 10.3 fl (7.4-10.4); Monocytes # 0.4 K/mm3 (0.1-1.0); Monocytes % 4.2 % (1.7-9.3); Neutrophils # 9.3 K/mm3 (1.8-7.8); Platelet Count 244 K/mm3 (142-424); Red Blood Count 3.27 M/mm3 (4.20-5.40); Red Cell Distribution Width 13.1 % (11.5-17.5); White Blood Count 10.5 K/mm3 (4.8-10.8)
[2023-12-12 09:00] LABS: MANUAL DIFFERENTIAL MANUAL DIFFERENTIAL (MANUAL DIFF)
[2023-12-12 09:49] LABS: Chloride 111 mmol/L (98-107)
[2023-12-12 09:50] LABS: Potassium 5.7 mmoL/L (3.5-5.1); Sodium 136 mmol/L (136-145)
[2023-12-12 09:52] LABS: Alanine Aminotransferase 25 U/L (12-78); Albumin Level 3.7 g/dl (3.5-5.0); Albumin/Globulin Ratio 1.5 (1.1-1.8); Alkaline Phosphatase 91 U/L (38-126); Anion Gap 11.7 mEq/L (5-15); Aspartate Amino Transferase 23 U/L (14-36); Bilirubin,Total 0.6 mg/dl (0.2-1.3); Blood Urea Nitrogen 17 mg/dl (7-17); Carbon Dioxide 19 mmol/L (22.0-30.0); Estimated Glomerular Filt Rate 47 ml/min (>60); GFR (African American) 57 ML/MIN (>60); Globulin 2.5 g/dL (1.3-3.2); Total Protein,Serum 6.2 g/dl (6.3-8.2)
[2023-12-12 09:53] LABS: Calcium 9.4 mg/dl (8.4-10.2); Glucose 209 mg/dl (74-100); Magnesium 1.1 mg/dl (1.6-2.3); Phosphorous 2.2 mg/dl (2.5-4.5)
[2023-12-12 10:12] LABS: Eosinophils % 3 % (0-3); Lymphocytes % 4 % (10-50); Macrocytosis 1+; Monocytes % 1 % (2-9); Neutrophils % 92 % (42-76); Platelet Estimate Normal; Total Cells Counted 100
[2023-12-18 08:17] LABS: Tacrolimus (Prograf) 8.5
== END 2023-12-12 23:59 | disposition home or self-care (01) ==
LOC: LAB 08:11
PROVIDERS: PCP Nurse Practitioner; Visit Provider Nurse Practitioner Family
DX: Z94.0 Kidney transplant status (principal); Z94.83 Pancreas transplant status; E11.8 Type 2 diabetes mellitus with unspecified complications; E83.42 Hypomagnesemia; I10 Essential (primary) hypertension; E78.5 Hyperlipidemia, unspecified; Z79.899 Other long term (current) drug therapy
CPT/HCPCS: 36415; 80053; 80197; 83735; 84100; 85007; 85025

== ENCOUNTER 2023-12-15 07:56 | Outpatient (CLI) | payer MEDICAID, SELFPAY ==
[2023-12-15 08:25] LABS: Basophils # 0.1 K/mm3 (0-0.2); Basophils % 0.5 % (0.1-2.0); Eosinophils # 0.3 K/mm3 (0.0-0.4); Eosinophils % 1.9 % (0.1-12.0); Hematocrit 35.3 % (37.0-47.0); Hemoglobin 11.4 g/dL (12.2-16.2); Lymphocytes # 0.6 K/mm3 (0.7-4.5); Mean Corpuscular HGB Conc 32.4 g/dL (31.8-35.4); Mean Corpuscular Hemoglobin 31.7 pg (27.0-31.2); Mean Corpuscular Volume 97.8 fl (81-99); Mean Platelet Volume 10.6 fl (7.4-10.4); Monocytes # 0.4 K/mm3 (0.1-1.0); Monocytes % 2.9 % (1.7-9.3); Neutrophils # 13.8 K/mm3 (1.8-7.8); Neutrophils % 90.7 % (37.0-80.0); Platelet Count 357 K/mm3 (142-424); Red Blood Count 3.61 M/mm3 (4.20-5.40); Red Cell Distribution Width 13.9 % (11.5-17.5); White Blood Count 15.2 K/mm3 (4.8-10.8)
[2023-12-15 08:29] LABS: MANUAL DIFFERENTIAL MANUAL DIFFERENTIAL (MANUAL DIFF)
[2023-12-15 09:00] LABS: Lymphocytes % 8 % (10-50); Monocytes % 2 % (2-9); Neutrophils % 90 % (42-76); Total Cells Counted 100
[2023-12-15 09:01] LABS: Platelet Estimate Normal; RBC Morphology Normal
[2023-12-15 09:25] LABS: Phosphorous 2.4 mg/dl (2.5-4.5)
[2023-12-15 09:26] LABS: Magnesium 1.4 mg/dl (1.6-2.3)
[2023-12-20 15:16] LABS: Chloride 109 mmol/L (98-107); Potassium 5.2 mmoL/L (3.5-5.1); Sodium 137 mmol/L (136-145)
[2023-12-20 15:19] LABS: Alanine Aminotransferase 20 U/L (12-78); Albumin Level 4.1 g/dl (3.5-5.0); Albumin/Globulin Ratio 1.5 (1.1-1.8); Alkaline Phosphatase 117 U/L (38-126); Aspartate Amino Transferase 21 U/L (14-36); Bilirubin,Total 0.4 mg/dl (0.2-1.3); Blood Urea Nitrogen 23 mg/dl (7-17); Calcium 10.1 mg/dl (8.4-10.2); Carbon Dioxide 16 mmol/L (22.0-30.0); Estimated Glomerular Filt Rate 40 ml/min (>60); GFR (African American) 48 ML/MIN (>60); Globulin 2.7 g/dL (1.3-3.2); Glucose 240 mg/dl (74-100); Total Protein,Serum 6.8 g/dl (6.3-8.2)
[2023-12-20 15:20] LABS: Anion Gap 17.2 mEq/L (5-15)
[2023-12-28 08:37] LABS: Tacrolimus (Prograf) 11.1
== END 2023-12-15 23:59 | disposition home or self-care (01) ==
LOC: LAB 07:58
PROVIDERS: PCP Nurse Practitioner; Visit Provider Nurse Practitioner Family
DX: E11.9 Type 2 diabetes mellitus without complications (principal); E83.42 Hypomagnesemia; E78.5 Hyperlipidemia, unspecified; I10 Essential (primary) hypertension; Z94.0 Kidney transplant status; Z94.83 Pancreas transplant status; Z01.89 Encounter for other specified special examinations; Z79.899 Other long term (current) drug therapy
CPT/HCPCS: 36415; 80053; 80197; 83735; 84100; 85007; 85025

== ENCOUNTER 2023-12-19 07:59 | Outpatient (CLI) | payer MEDICAID, SELFPAY ==
[2023-12-19 08:32] LABS: Basophils % 0.6 % (0.1-2.0); Eosinophils # 0.2 K/mm3 (0.0-0.4); Eosinophils % 2.3 % (0.1-12.0); Hematocrit 34.1 % (37.0-47.0); Hemoglobin 10.9 g/dL (12.2-16.2); Lymphocytes # 0.6 K/mm3 (0.7-4.5); Lymphocytes % 7.5 % (10-50); Mean Corpuscular Hemoglobin 31.6 pg (27.0-31.2); Mean Corpuscular Volume 98.9 fl (81-99); Mean Platelet Volume 10.6 fl (7.4-10.4); Monocytes # 0.4 K/mm3 (0.1-1.0); Monocytes % 4.4 % (1.7-9.3); Neutrophils # 6.8 K/mm3 (1.8-7.8); Neutrophils % 85.2 % (37.0-80.0); Platelet Count 278 K/mm3 (142-424); Red Blood Count 3.44 M/mm3 (4.20-5.40); Red Cell Distribution Width 14.7 % (11.5-17.5)
[2023-12-19 08:35] LABS: MANUAL DIFFERENTIAL MANUAL DIFFERENTIAL (MANUAL DIFF)
[2023-12-19 09:36] LABS: Eosinophils % 3 % (0-3); Lymphocytes % 5 % (10-50); Monocytes % 4 % (2-9); Neutrophils % 87 % (42-76); Total Cells Counted 100
[2023-12-19 09:40] LABS: Alanine Aminotransferase 21 U/L (12-78); Albumin Level 3.6 g/dl (3.5-5.0); Albumin/Globulin Ratio 1.6 (1.1-1.8); Alkaline Phosphatase 100 U/L (38-126); Anion Gap 14.5 mEq/L (5-15); Aspartate Amino Transferase 22 U/L (14-36); Bilirubin,Total 0.4 mg/dl (0.2-1.3); Blood Urea Nitrogen 17 mg/dl (7-17); Calcium 9.6 mg/dl (8.4-10.2); Carbon Dioxide 20 mmol/L (22.0-30.0); Chloride 109 mmol/L (98-107); Estimated Glomerular Filt Rate 47 ml/min (>60); GFR (African American) 57 ML/MIN (>60); Globulin 2.2 g/dL (1.3-3.2); Glucose 277 mg/dl (74-100); Magnesium 1.2 mg/dl (1.6-2.3); Potassium 5.5 mmoL/L (3.5-5.1); Sodium 138 mmol/L (136-145); Total Protein,Serum 5.8 g/dl (6.3-8.2)
[2023-12-19 09:43] LABS: Platelet Estimate Normal; RBC Morphology Normal
[2023-12-19 11:46] LABS: Phosphorous 1.9 mg/dl (2.5-4.5)
[2023-12-28 08:37] LABS: Tacrolimus (Prograf) 9.1
== END 2023-12-19 23:59 | disposition home or self-care (01) ==
LOC: LAB 08:00
PROVIDERS: PCP Nurse Practitioner; Visit Provider Nurse Practitioner Family
DX: Z94.0 Kidney transplant status (principal); Z01.89 Encounter for other specified special examinations; E11.8 Type 2 diabetes mellitus with unspecified complications; E78.5 Hyperlipidemia, unspecified; I10 Essential (primary) hypertension; Z79.899 Other long term (current) drug therapy; Z72.0 Tobacco use
CPT/HCPCS: 36415; 80053; 80197; 83735; 84100; 85007; 85025

== ENCOUNTER 2023-12-22 08:00 | Outpatient (CLI) | payer MEDICAID, SELFPAY ==
[2023-12-22 08:24] LABS: Basophils % 0.7 % (0.1-2.0); Eosinophils # 0.1 K/mm3 (0.0-0.4); Eosinophils % 2.6 % (0.1-12.0); Hematocrit 34.7 % (37.0-47.0); Hemoglobin 10.9 g/dL (12.2-16.2); Lymphocytes # 0.6 K/mm3 (0.7-4.5); Lymphocytes % 10.8 % (10-50); Mean Corpuscular HGB Conc 31.5 g/dL (31.8-35.4); Mean Corpuscular Hemoglobin 32.2 pg (27.0-31.2); Mean Corpuscular Volume 102.5 fl (81-99); Mean Platelet Volume 10.6 fl (7.4-10.4); Monocytes # 0.2 K/mm3 (0.1-1.0); Monocytes % 3.3 % (1.7-9.3); Neutrophils # 4.6 K/mm3 (1.8-7.8); Neutrophils % 82.7 % (37.0-80.0); Platelet Count 207 K/mm3 (142-424); Red Blood Count 3.38 M/mm3 (4.20-5.40); Red Cell Distribution Width 14.8 % (11.5-17.5); White Blood Count 5.5 K/mm3 (4.8-10.8)
[2023-12-22 09:33] LABS: Chloride 109 mmol/L (98-107)
[2023-12-22 09:34] LABS: Potassium 4.5 mmoL/L (3.5-5.1); Sodium 137 mmol/L (136-145)
[2023-12-22 09:36] LABS: Alanine Aminotransferase 29 U/L (12-78); Anion Gap 14.5 mEq/L (5-15); Aspartate Amino Transferase 25 U/L (14-36); Blood Urea Nitrogen 14 mg/dl (7-17); Carbon Dioxide 18 mmol/L (22.0-30.0); Estimated Glomerular Filt Rate 63 ml/min (>60); GFR (African American) 77 ML/MIN (>60)
[2023-12-22 09:37] LABS: Albumin Level 3.7 g/dl (3.5-5.0); Albumin/Globulin Ratio 1.7 (1.1-1.8); Alkaline Phosphatase 90 U/L (38-126); Bilirubin,Total 0.4 mg/dl (0.2-1.3); Calcium 9.4 mg/dl (8.4-10.2); Globulin 2.2 g/dL (1.3-3.2); Glucose 305 mg/dl (74-100); Magnesium 1.2 mg/dl (1.6-2.3); Total Protein,Serum 5.9 g/dl (6.3-8.2)
[2023-12-22 09:42] LABS: Phosphorous 1.7 mg/dl (2.5-4.5)
[2023-12-28 08:38] LABS: Tacrolimus (Prograf) 8.7
== END 2023-12-22 23:59 | disposition home or self-care (01) ==
LOC: LAB 08:01
PROVIDERS: PCP Nurse Practitioner; Visit Provider Nurse Practitioner Family
DX: Z94.0 Kidney transplant status (principal); Z01.89 Encounter for other specified special examinations; Z79.899 Other long term (current) drug therapy; E78.5 Hyperlipidemia, unspecified; E11.8 Type 2 diabetes mellitus with unspecified complications; I10 Essential (primary) hypertension; F17.200 Nicotine dependence, unspecified, uncomplicated
CPT/HCPCS: 36415; 80053; 80197; 83735; 84100; 85025

== ENCOUNTER 2023-12-26 08:00 | Outpatient (CLI) | payer MEDICAID, SELFPAY ==
[2023-12-26 08:26] LABS: Basophils % 0.5 % (0.1-2.0); Eosinophils # 0.1 K/mm3 (0.0-0.4); Eosinophils % 2.4 % (0.1-12.0); Hematocrit 33.2 % (37.0-47.0); Hemoglobin 10.7 g/dL (12.2-16.2); Lymphocytes # 0.5 K/mm3 (0.7-4.5); Lymphocytes % 12.4 % (10-50); Mean Corpuscular HGB Conc 32.1 g/dL (31.8-35.4); Mean Corpuscular Hemoglobin 32.2 pg (27.0-31.2); Mean Corpuscular Volume 100.2 fl (81-99); Mean Platelet Volume 10.4 fl (7.4-10.4); Monocytes # 0.2 K/mm3 (0.1-1.0); Monocytes % 4.8 % (1.7-9.3); Neutrophils # 3.1 K/mm3 (1.8-7.8); Neutrophils % 79.9 % (37.0-80.0); Platelet Count 199 K/mm3 (142-424); Red Blood Count 3.32 M/mm3 (4.20-5.40); Red Cell Distribution Width 15.2 % (11.5-17.5); White Blood Count 3.8 K/mm3 (4.8-10.8)
[2023-12-26 09:28] LABS: Chloride 114 mmol/L (98-107); Potassium 4.9 mmoL/L (3.5-5.1); Sodium 139 mmol/L (136-145)
[2023-12-26 09:30] LABS: Alanine Aminotransferase 20 U/L (12-78); Aspartate Amino Transferase 18 U/L (14-36); Blood Urea Nitrogen 14 mg/dl (7-17); Estimated Glomerular Filt Rate 63 ml/min (>60); GFR (African American) 77 ML/MIN (>60)
[2023-12-26 09:31] LABS: Albumin Level 3.3 g/dl (3.5-5.0); Albumin/Globulin Ratio 1.4 (1.1-1.8); Alkaline Phosphatase 85 U/L (38-126); Anion Gap 10.9 mEq/L (5-15); Bilirubin,Total 0.2 mg/dl (0.2-1.3); Calcium 9.3 mg/dl (8.4-10.2); Carbon Dioxide 19 mmol/L (22.0-30.0); Globulin 2.3 g/dL (1.3-3.2); Glucose 104 mg/dl (74-100); Magnesium 1.4 mg/dl (1.6-2.3); Total Protein,Serum 5.6 g/dl (6.3-8.2)
== END 2023-12-26 23:59 | disposition home or self-care (01) ==
LOC: LAB 08:01
PROVIDERS: PCP Nurse Practitioner; Visit Provider Nurse Practitioner Family
DX: Z01.89 Encounter for other specified special examinations (principal); Z94.0 Kidney transplant status; E11.8 Type 2 diabetes mellitus with unspecified complications; I10 Essential (primary) hypertension; F17.210 Nicotine dependence, cigarettes, uncomplicated; Z79.899 Other long term (current) drug therapy; E78.5 Hyperlipidemia, unspecified
CPT/HCPCS: 36415; 80053; 80197; 83735; 84100; 85025

== ENCOUNTER 2023-12-29 07:56 | Outpatient (CLI) | payer MEDICAID, SELFPAY ==
[2023-12-29 08:28] LABS: Basophils % 0.9 % (0.1-2.0); Eosinophils # 0.1 K/mm3 (0.0-0.4); Eosinophils % 3.3 % (0.1-12.0); Hematocrit 35.5 % (37.0-47.0); Hemoglobin 11.3 g/dL (12.2-16.2); Lymphocytes # 0.5 K/mm3 (0.7-4.5); Lymphocytes % 12.1 % (10-50); Mean Corpuscular HGB Conc 31.8 g/dL (31.8-35.4); Mean Corpuscular Hemoglobin 32.4 pg (27.0-31.2); Mean Platelet Volume 10.2 fl (7.4-10.4); Monocytes # 0.2 K/mm3 (0.1-1.0); Monocytes % 5.3 % (1.7-9.3); Neutrophils % 78.3 % (37.0-80.0); Platelet Count 191 K/mm3 (142-424); Red Blood Count 3.48 M/mm3 (4.20-5.40); Red Cell Distribution Width 14.8 % (11.5-17.5); White Blood Count 3.8 K/mm3 (4.8-10.8)
[2023-12-29 09:11] LABS: Chloride 115 mmol/L (98-107); Potassium 5.5 mmoL/L (3.5-5.1); Sodium 141 mmol/L (136-145)
[2023-12-29 09:13] LABS: Alanine Aminotransferase 22 U/L (12-78); Alkaline Phosphatase 85 U/L (38-126); Anion Gap 11.5 mEq/L (5-15); Aspartate Amino Transferase 23 U/L (14-36); Bilirubin,Total 0.2 mg/dl (0.2-1.3); Blood Urea Nitrogen 15 mg/dl (7-17); Carbon Dioxide 20 mmol/L (22.0-30.0); Estimated Glomerular Filt Rate 63 ml/min (>60); GFR (African American) 77 ML/MIN (>60)
[2023-12-29 09:14] LABS: Albumin Level 3.6 g/dl (3.5-5.0); Albumin/Globulin Ratio 1.6 (1.1-1.8); Calcium 9.4 mg/dl (8.4-10.2); Chol/HDL Ratio 2.7 (1-3.5); Cholesterol 138 mg/dl (140-200); Globulin 2.3 g/dL (1.3-3.2); Glucose 86 mg/dl (74-100); HDL Cholesterol 52 mg/dl (40-60); Magnesium 1.3 mg/dl (1.6-2.3); Total Protein,Serum 5.9 g/dl (6.3-8.2); Triglycerides 88 mg/dl (30-150); VLDL Cholesterol 18 mg/dL (0-40)
[2023-12-29 09:25] LABS: Direct LDL Cholesterol 67.24 mg/dL (100-129)
[2023-12-29 10:05] LABS: Phosphorous 1.9 mg/dl (2.5-4.5)
[2023-12-29 13:32] LABS: Microscopic, Urine URINE MICROSCOPIC (MICROSCOPIC)
[2023-12-29 13:50] LABS: Appearance,Urine CLEAR (Clear); Bilirubin,Urine Negative (Negative); Blood, Urine Negative (Negative); Color,Urine YELLOW (Yellow); Glucose,Urine (UA) 1+ (Negative); Ketones,Urine Negative (Negative); Leukocyte Esterase,Urine Negative (Negative); Nitrate,Urine Negative (Negative); Protein,Urine Negative (Negative); Urobilinogen,Urine 0.2 EU/dl (0.2)
[2023-12-29 13:58] LABS: Creatinine,Urine Random 84 mg/dL (Not Estab.)
[2023-12-29 14:04] LABS: Bacteria,Urine Trace /lpf
[2023-12-31 15:01] LABS: BKV DNA, Quant PCR, Plasma Negative (Negative)
[2024-01-06 11:14] LABS: Tacrolimus (FK506), Blood 8.4
== END 2023-12-29 23:59 | disposition home or self-care (01) ==
LOC: LAB 07:57
PROVIDERS: PCP Nurse Practitioner; Visit Provider Nurse Practitioner Family
DX: Z94.0 Kidney transplant status (principal); E11.8 Type 2 diabetes mellitus with unspecified complications; I10 Essential (primary) hypertension; Z01.89 Encounter for other specified special examinations; Z79.899 Other long term (current) drug therapy; E78.5 Hyperlipidemia, unspecified; Z79.85 Long-term (current) use of injectable non-insulin antidiabetic drugs; F17.200 Nicotine dependence, unspecified, uncomplicated
CPT/HCPCS: 36415; 80053; 80061; 80197; 81001; 82570; 83735; 84100; 84156; 85025; 87799

== ENCOUNTER 2024-01-10 07:58 | Outpatient (CLI) | payer MEDICAID, SELFPAY ==
[2024-01-10 08:30] LABS: Basophils % 0.3 % (0.1-2.0); Hematocrit 36.9 % (37.0-47.0); Hemoglobin 11.4 g/dL (12.2-16.2); Lymphocytes # 0.7 K/mm3 (0.7-4.5); Lymphocytes % 16.8 % (10-50); Mean Corpuscular HGB Conc 30.8 g/dL (31.8-35.4); Mean Corpuscular Hemoglobin 32.5 pg (27.0-31.2); Mean Corpuscular Volume 105.4 fl (81-99); Mean Platelet Volume 10.6 fl (7.4-10.4); Monocytes # 0.2 K/mm3 (0.1-1.0); Monocytes % 5.1 % (1.7-9.3); Neutrophils # 3.2 K/mm3 (1.8-7.8); Neutrophils % 76.8 % (37.0-80.0); Platelet Count 189 K/mm3 (142-424); Red Cell Distribution Width 14.7 % (11.5-17.5); White Blood Count 4.1 K/mm3 (4.8-10.8)
[2024-01-10 11:10] LABS: Chloride 111 mmol/L (98-107); Potassium 5.7 mmoL/L (3.5-5.1); Sodium 137 mmol/L (136-145)
[2024-01-10 11:12] LABS: Alanine Aminotransferase 55 U/L (12-78); Aspartate Amino Transferase 39 U/L (14-36); Blood Urea Nitrogen 14 mg/dl (7-17); Estimated Glomerular Filt Rate 72 ml/min (>60); GFR (African American) 87 ML/MIN (>60)
[2024-01-10 11:13] LABS: Albumin Level 3.6 g/dl (3.5-5.0); Albumin/Globulin Ratio 1.6 (1.1-1.8); Alkaline Phosphatase 87 U/L (38-126); Anion Gap 11.7 mEq/L (5-15); Bilirubin,Total 0.3 mg/dl (0.2-1.3); Calcium 9.5 mg/dl (8.4-10.2); Carbon Dioxide 20 mmol/L (22.0-30.0); Globulin 2.3 g/dL (1.3-3.2); Glucose 161 mg/dl (74-100); Magnesium 1.2 mg/dl (1.6-2.3); Total Protein,Serum 5.9 g/dl (6.3-8.2)
[2024-01-28 11:20] LABS: Tacrolimus (FK506), Blood 10.3
== END 2024-01-10 23:59 | disposition home or self-care (01) ==
LOC: LAB 07:58
PROVIDERS: PCP Nurse Practitioner; Visit Provider Nurse Practitioner Family
DX: I10 Essential (primary) hypertension (principal); E11.8 Type 2 diabetes mellitus with unspecified complications; E83.42 Hypomagnesemia; Z94.0 Kidney transplant status; Z94.83 Pancreas transplant status
CPT/HCPCS: 36415; 80053; 80197; 83735; 84100; 85025

== ENCOUNTER 2024-01-17 08:17 | Outpatient (CLI) | payer MEDICAID, SELFPAY ==
[2024-01-17 08:58] LABS: Basophils % 0.4 % (0.1-2.0); Eosinophils % 0.8 % (0.1-12.0); Hematocrit 39.7 % (37.0-47.0); Hemoglobin 12.3 g/dL (12.2-16.2); Lymphocytes # 0.7 K/mm3 (0.7-4.5); Lymphocytes % 16.8 % (10-50); Mean Corpuscular HGB Conc 31.1 g/dL (31.8-35.4); Mean Corpuscular Hemoglobin 31.8 pg (27.0-31.2); Mean Corpuscular Volume 102.2 fl (81-99); Mean Platelet Volume 10.3 fl (7.4-10.4); Monocytes # 0.2 K/mm3 (0.1-1.0); Monocytes % 5.2 % (1.7-9.3); Neutrophils # 3.2 K/mm3 (1.8-7.8); Neutrophils % 76.8 % (37.0-80.0); Platelet Count 217 K/mm3 (142-424); Red Blood Count 3.88 M/mm3 (4.20-5.40); Red Cell Distribution Width 14.3 % (11.5-17.5); White Blood Count 4.1 K/mm3 (4.8-10.8)
[2024-01-17 09:36] LABS: Alanine Aminotransferase 54 U/L (12-78); Albumin/Globulin Ratio 1.8 (1.1-1.8); Alkaline Phosphatase 84 U/L (38-126); Anion Gap 10.2 mEq/L (5-15); Aspartate Amino Transferase 34 U/L (14-36); Bilirubin,Total 0.5 mg/dl (0.2-1.3); Blood Urea Nitrogen 14 mg/dl (7-17); Calcium 9.9 mg/dl (8.4-10.2); Carbon Dioxide 21 mmol/L (22.0-30.0); Chloride 113 mmol/L (98-107); Estimated Glomerular Filt Rate 63 ml/min (>60); GFR (African American) 77 ML/MIN (>60); Globulin 2.2 g/dL (1.3-3.2); Glucose 100 mg/dl (74-100); Magnesium 1.3 mg/dl (1.6-2.3); Phosphorous 3.1 mg/dl (2.5-4.5); Potassium 5.2 mmoL/L (3.5-5.1); Sodium 139 mmol/L (136-145); Total Protein,Serum 6.2 g/dl (6.3-8.2)
== END 2024-01-17 23:59 | disposition home or self-care (01) ==
LOC: LAB 08:18
PROVIDERS: PCP Nurse Practitioner; Visit Provider Nurse Practitioner Family
DX: E78.5 Hyperlipidemia, unspecified (principal); E11.8 Type 2 diabetes mellitus with unspecified complications; I10 Essential (primary) hypertension; Z94.0 Kidney transplant status; Z79.899 Other long term (current) drug therapy; Z01.89 Encounter for other specified special examinations
CPT/HCPCS: 36415; 80053; 80197; 83735; 84100; 85025

== ENCOUNTER 2024-01-26 08:09 | Outpatient (CLI) | payer MEDICAID, SELFPAY ==
[2024-01-26 08:16] LABS: Microscopic, Urine URINE MICROSCOPIC (MICROSCOPIC)
[2024-01-26 08:33] LABS: Basophils % 0.6 % (0.1-2.0); Eosinophils # 0.1 K/mm3 (0.0-0.4); Eosinophils % 1.3 % (0.1-12.0); Hematocrit 38.9 % (37.0-47.0); Hemoglobin 12.2 g/dL (12.2-16.2); Lymphocytes # 0.8 K/mm3 (0.7-4.5); Lymphocytes % 21.5 % (10-50); Mean Corpuscular HGB Conc 31.4 g/dL (31.8-35.4); Mean Corpuscular Hemoglobin 32.7 pg (27.0-31.2); Mean Corpuscular Volume 104.3 fl (81-99); Mean Platelet Volume 10.3 fl (7.4-10.4); Monocytes # 0.2 K/mm3 (0.1-1.0); Monocytes % 6.1 % (1.7-9.3); Neutrophils # 2.6 K/mm3 (1.8-7.8); Neutrophils % 70.5 % (37.0-80.0); Platelet Count 178 K/mm3 (142-424); Red Blood Count 3.72 M/mm3 (4.20-5.40); Red Cell Distribution Width 13.9 % (11.5-17.5); White Blood Count 3.7 K/mm3 (4.8-10.8)
[2024-01-26 08:34] LABS: Appearance,Urine CLEAR (Clear); Bilirubin,Urine Negative (Negative); Blood, Urine Negative (Negative); Color,Urine YELLOW (Yellow); Glucose,Urine (UA) Negative (Negative); Ketones,Urine Negative (Negative); Leukocyte Esterase,Urine Negative (Negative); Nitrate,Urine Negative (Negative); Protein,Urine Negative (Negative); Urobilinogen,Urine 0.2 EU/dl (0.2)
[2024-01-26 08:48] LABS: Creatinine,Urine Random 73 mg/dL (Not Estab.); Total Protein,Urine Random < 5.0 mg/dL (0.0-12.0)
[2024-01-26 08:51] LABS: Bacteria,Urine Trace /lpf; WBC,Urine Occasional #/hpf (0-3)
[2024-01-26 09:03] LABS: Alanine Aminotransferase 38 U/L (12-78); Albumin Level 3.6 g/dl (3.5-5.0); Albumin/Globulin Ratio 1.6 (1.1-1.8); Alkaline Phosphatase 79 U/L (38-126); Anion Gap 6.8 mEq/L (5-15); Aspartate Amino Transferase 24 U/L (14-36); Bilirubin,Total 0.4 mg/dl (0.2-1.3); Blood Urea Nitrogen 22 mg/dl (7-17); Calcium 9.8 mg/dl (8.4-10.2); Carbon Dioxide 23 mmol/L (22.0-30.0); Chloride 115 mmol/L (98-107); Chol/HDL Ratio 2.4 (1-3.5); Cholesterol 133 mg/dl (140-200); Estimated Glomerular Filt Rate 63 ml/min (>60); GFR (African American) 77 ML/MIN (>60); Globulin 2.2 g/dL (1.3-3.2); Glucose 124 mg/dl (74-100); HDL Cholesterol 56 mg/dl (40-60); Magnesium 1.4 mg/dl (1.6-2.3); Phosphorous 2.9 mg/dl (2.5-4.5); Potassium 5.8 mmoL/L (3.5-5.1); Sodium 139 mmol/L (136-145); Total Protein,Serum 5.8 g/dl (6.3-8.2); Triglycerides 77 mg/dl (30-150); VLDL Cholesterol 15 mg/dL (0-40)
[2024-01-26 09:14] LABS: Direct LDL Cholesterol 55.59 mg/dL (100-129)
[2024-01-28 15:31] LABS: BKV DNA, Quant PCR, Plasma Negative (Negative)
[2024-03-05 12:13] LABS: Tacrolimus (FK506), Blood 13.6
== END 2024-01-26 23:59 | disposition home or self-care (01) ==
LOC: LAB 08:09
PROVIDERS: PCP Nurse Practitioner; Visit Provider Nurse Practitioner Family
DX: E11.8 Type 2 diabetes mellitus with unspecified complications (principal); E83.42 Hypomagnesemia; I10 Essential (primary) hypertension; E78.5 Hyperlipidemia, unspecified; Z94.0 Kidney transplant status; Z94.83 Pancreas transplant status; Z01.89 Encounter for other specified special examinations; Z79.899 Other long term (current) drug therapy
CPT/HCPCS: 36415; 80053; 80061; 80197; 81001; 82570; 83735; 84100; 84156; 85025; 87799

== ENCOUNTER 2024-02-01 08:12 | Outpatient (CLI) | payer MEDICAID, SELFPAY ==
[2024-02-01 09:08] LABS: Basophils % 0.5 % (0.1-2.0); Eosinophils # 0.1 K/mm3 (0.0-0.4); Eosinophils % 1.4 % (0.1-12.0); Hematocrit 38.5 % (37.0-47.0); Hemoglobin 12.1 g/dL (12.2-16.2); Lymphocytes # 0.7 K/mm3 (0.7-4.5); Lymphocytes % 19.7 % (10-50); Mean Corpuscular HGB Conc 31.3 g/dL (31.8-35.4); Mean Corpuscular Hemoglobin 32.4 pg (27.0-31.2); Mean Corpuscular Volume 103.5 fl (81-99); Mean Platelet Volume 10.5 fl (7.4-10.4); Monocytes # 0.2 K/mm3 (0.1-1.0); Monocytes % 5.7 % (1.7-9.3); Neutrophils # 2.7 K/mm3 (1.8-7.8); Neutrophils % 72.7 % (37.0-80.0); Platelet Count 159 K/mm3 (142-424); Red Blood Count 3.72 M/mm3 (4.20-5.40); Red Cell Distribution Width 13.8 % (11.5-17.5); White Blood Count 3.7 K/mm3 (4.8-10.8)
[2024-02-01 10:34] LABS: Alanine Aminotransferase 23 U/L (12-78); Albumin Level 3.7 g/dl (3.5-5.0); Albumin/Globulin Ratio 1.8 (1.1-1.8); Alkaline Phosphatase 93 U/L (38-126); Anion Gap 9.9 mEq/L (5-15); Aspartate Amino Transferase 18 U/L (14-36); Bilirubin,Total 0.4 mg/dl (0.2-1.3); Blood Urea Nitrogen 18 mg/dl (7-17); Carbon Dioxide 22 mmol/L (22.0-30.0); Chloride 113 mmol/L (98-107); Estimated Glomerular Filt Rate 57 ml/min (>60); GFR (African American) 69 ML/MIN (>60); Globulin 2.1 g/dL (1.3-3.2); Glucose 129 mg/dl (74-100); Magnesium 1.5 mg/dl (1.6-2.3); Potassium 5.9 mmoL/L (3.5-5.1); Sodium 139 mmol/L (136-145); Total Protein,Serum 5.8 g/dl (6.3-8.2)
[2024-02-09 14:27] LABS: Tacrolimus (FK506), Blood 10.5
== END 2024-02-01 23:59 | disposition home or self-care (01) ==
LOC: LAB 08:13
PROVIDERS: PCP Nurse Practitioner; Visit Provider Nurse Practitioner Family
DX: E78.5 Hyperlipidemia, unspecified (principal); E11.8 Type 2 diabetes mellitus with unspecified complications; I10 Essential (primary) hypertension; Z94.0 Kidney transplant status; Z01.89 Encounter for other specified special examinations; Z79.899 Other long term (current) drug therapy
CPT/HCPCS: 36415; 80053; 80197; 83735; 84100; 85025

== ENCOUNTER 2024-02-07 08:13 | Outpatient (CLI) | payer MEDICAID, SELFPAY ==
[2024-02-07 08:31] LABS: Basophils % 0.4 % (0.1-2.0); Eosinophils # 0.1 K/mm3 (0.0-0.4); Eosinophils % 1.5 % (0.1-12.0); Hematocrit 41.2 % (37.0-47.0); Hemoglobin 13.3 g/dL (12.2-16.2); Lymphocytes # 0.7 K/mm3 (0.7-4.5); Lymphocytes % 20.2 % (10-50); Mean Corpuscular HGB Conc 32.2 g/dL (31.8-35.4); Mean Corpuscular Hemoglobin 32.7 pg (27.0-31.2); Mean Corpuscular Volume 101.6 fl (81-99); Mean Platelet Volume 10.3 fl (7.4-10.4); Monocytes # 0.2 K/mm3 (0.1-1.0); Monocytes % 5.3 % (1.7-9.3); Neutrophils # 2.6 K/mm3 (1.8-7.8); Neutrophils % 72.6 % (37.0-80.0); Platelet Count 181 K/mm3 (142-424); Red Blood Count 4.05 M/mm3 (4.20-5.40); Red Cell Distribution Width 13.5 % (11.5-17.5); White Blood Count 3.6 K/mm3 (4.8-10.8)
[2024-02-07 10:00] LABS: Alanine Aminotransferase 35 U/L (12-78); Alkaline Phosphatase 93 U/L (38-126); Anion Gap 10.6 mEq/L (5-15); Aspartate Amino Transferase 29 U/L (14-36); Bilirubin,Total 0.3 mg/dl (0.2-1.3); Blood Urea Nitrogen 21 mg/dl (7-17); Calcium 10.3 mg/dl (8.4-10.2); Carbon Dioxide 22 mmol/L (22.0-30.0); Chloride 111 mmol/L (98-107); Estimated Glomerular Filt Rate 57 ml/min (>60); GFR (African American) 69 ML/MIN (>60); Glucose 124 mg/dl (74-100); Magnesium 1.4 mg/dl (1.6-2.3); Phosphorous 3.2 mg/dl (2.5-4.5); Potassium 5.6 mmoL/L (3.5-5.1); Sodium 138 mmol/L (136-145)
[2024-02-13 12:17] LABS: Tacrolimus (FK506), Blood 12.1
== END 2024-02-07 23:59 | disposition home or self-care (01) ==
PROVIDERS: Visit Provider Nurse Practitioner Family
DX: Z94.0 Kidney transplant status (principal); E11.8 Type 2 diabetes mellitus with unspecified complications; Z79.85 Long-term (current) use of injectable non-insulin antidiabetic drugs; I10 Essential (primary) hypertension; F17.200 Nicotine dependence, unspecified, uncomplicated; Z79.899 Other long term (current) drug therapy; E78.5 Hyperlipidemia, unspecified
CPT/HCPCS: 36415; 80053; 80197; 83735; 84100; 85025

== ENCOUNTER 2024-02-14 08:02 | Outpatient (CLI) | payer MEDICAID, SELFPAY ==
[2024-02-14 08:28] LABS: Basophils % 0.7 % (0.1-2.0); Eosinophils # 0.1 K/mm3 (0.0-0.4); Eosinophils % 1.7 % (0.1-12.0); Hematocrit 39.4 % (37.0-47.0); Hemoglobin 12.9 g/dL (12.2-16.2); Lymphocytes # 0.6 K/mm3 (0.7-4.5); Lymphocytes % 15.8 % (10-50); Mean Corpuscular HGB Conc 32.8 g/dL (31.8-35.4); Mean Corpuscular Hemoglobin 32.3 pg (27.0-31.2); Mean Corpuscular Volume 98.5 fl (81-99); Mean Platelet Volume 10.5 fl (7.4-10.4); Monocytes # 0.2 K/mm3 (0.1-1.0); Monocytes % 5.5 % (1.7-9.3); Neutrophils # 3.1 K/mm3 (1.8-7.8); Neutrophils % 76.3 % (37.0-80.0); Platelet Count 156 K/mm3 (142-424); Red Cell Distribution Width 13.6 % (11.5-17.5); White Blood Count 4.1 K/mm3 (4.8-10.8)
[2024-02-14 09:17] LABS: Alanine Aminotransferase 17 U/L (12-78); Albumin Level 3.9 g/dl (3.5-5.0); Albumin/Globulin Ratio 1.6 (1.1-1.8); Alkaline Phosphatase 90 U/L (38-126); Anion Gap 10.1 mEq/L (5-15); Aspartate Amino Transferase 19 U/L (14-36); Bilirubin,Total 0.6 mg/dl (0.2-1.3); Blood Urea Nitrogen 16 mg/dl (7-17); Calcium 10.1 mg/dl (8.4-10.2); Carbon Dioxide 20 mmol/L (22.0-30.0); Chloride 113 mmol/L (98-107); Estimated Glomerular Filt Rate 63 ml/min (>60); GFR (African American) 77 ML/MIN (>60); Globulin 2.5 g/dL (1.3-3.2); Glucose 144 mg/dl (74-100); Magnesium 1.3 mg/dl (1.6-2.3); Sodium 137 mmol/L (136-145); Total Protein,Serum 6.4 g/dl (6.3-8.2)
[2024-02-14 09:27] LABS: Potassium 6.1 mmoL/L (3.5-5.1)
[2024-02-21 10:01] LABS: Tacrolimus (FK506), Blood 12.5
== END 2024-02-14 23:59 | disposition home or self-care (01) ==
LOC: LAB 08:03
PROVIDERS: Visit Provider Nurse Practitioner Family
DX: Z94.0 Kidney transplant status (principal); E11.8 Type 2 diabetes mellitus with unspecified complications; I10 Essential (primary) hypertension; Z01.89 Encounter for other specified special examinations; Z79.899 Other long term (current) drug therapy; E78.5 Hyperlipidemia, unspecified; Z72.0 Tobacco use; Z79.85 Long-term (current) use of injectable non-insulin antidiabetic drugs
CPT/HCPCS: 36415; 80053; 80197; 83735; 84100; 85025

== ENCOUNTER 2024-02-24 07:51 | Outpatient (CLI) | payer MEDICAID, SELFPAY ==
[2024-02-24 08:10] LABS: Basophils % 0.4 % (0.1-2.0); Eosinophils # 0.1 K/mm3 (0.0-0.4); Eosinophils % 3.2 % (0.1-12.0); Hematocrit 40.9 % (37.0-47.0); Lymphocytes # 0.7 K/mm3 (0.7-4.5); Lymphocytes % 16.2 % (10-50); Mean Corpuscular HGB Conc 31.9 g/dL (31.8-35.4); Mean Corpuscular Hemoglobin 32.7 pg (27.0-31.2); Mean Corpuscular Volume 102.5 fl (81-99); Mean Platelet Volume 10.1 fl (7.4-10.4); Monocytes # 0.3 K/mm3 (0.1-1.0); Monocytes % 7.7 % (1.7-9.3); Neutrophils # 2.9 K/mm3 (1.8-7.8); Neutrophils % 72.4 % (37.0-80.0); Platelet Count 174 K/mm3 (142-424); Red Blood Count 3.99 M/mm3 (4.20-5.40); Red Cell Distribution Width 12.6 % (11.5-17.5)
[2024-02-24 08:53] LABS: Albumin Level 4.1 g/dl (3.5-5.0); Chloride 117 mmol/L (98-107); Sodium 141 mmol/L (136-145)
[2024-02-24 08:55] LABS: Blood Urea Nitrogen 19 mg/dl (7-17); Estimated Glomerular Filt Rate 51 ml/min (>60); GFR (African American) 62 ML/MIN (>60)
[2024-02-24 08:56] LABS: Alanine Aminotransferase 17 U/L (12-78); Albumin/Globulin Ratio 1.8 (1.1-1.8); Alkaline Phosphatase 97 U/L (38-126); Anion Gap 9.1 mEq/L (5-15); Aspartate Amino Transferase 18 U/L (14-36); Bilirubin,Total 0.5 mg/dl (0.2-1.3); Calcium 9.7 mg/dl (8.4-10.2); Carbon Dioxide 21 mmol/L (22.0-30.0); Globulin 2.3 g/dL (1.3-3.2); Glucose 88 mg/dl (74-100); Magnesium 1.5 mg/dl (1.6-2.3); Phosphorous 3.7 mg/dl (2.5-4.5); Total Protein,Serum 6.4 g/dl (6.3-8.2)
[2024-02-24 09:01] LABS: Potassium 6.1 mmoL/L (3.5-5.1)
[2024-02-29 10:33] LABS: Tacrolimus (FK506), Blood 10.1
== END 2024-02-24 23:59 | disposition home or self-care (01) ==
LOC: LAB 07:51
PROVIDERS: Visit Provider Nurse Practitioner Family
DX: Z94.0 Kidney transplant status (principal); E11.8 Type 2 diabetes mellitus with unspecified complications; Z01.89 Encounter for other specified special examinations; Z79.899 Other long term (current) drug therapy; I10 Essential (primary) hypertension; E78.5 Hyperlipidemia, unspecified
CPT/HCPCS: 36415; 80053; 80197; 83735; 84100; 85025

== ENCOUNTER 2024-02-28 07:48 | Outpatient (CLI) | payer MEDICAID, SELFPAY ==
[2024-02-28 08:05] LABS: Eosinophils # 0.1 K/mm3 (0.0-0.4); Eosinophils % 1.8 % (0.1-12.0); Hematocrit 42.2 % (37.0-47.0); Hemoglobin 13.2 g/dL (12.2-16.2); Lymphocytes # 0.6 K/mm3 (0.7-4.5); Lymphocytes % 20.2 % (10-50); Mean Corpuscular HGB Conc 31.3 g/dL (31.8-35.4); Mean Corpuscular Hemoglobin 31.8 pg (27.0-31.2); Mean Corpuscular Volume 101.7 fl (81-99); Mean Platelet Volume 10.7 fl (7.4-10.4); Monocytes # 0.1 K/mm3 (0.1-1.0); Monocytes % 4.6 % (1.7-9.3); Neutrophils # 2.2 K/mm3 (1.8-7.8); Neutrophils % 72.4 % (37.0-80.0); Platelet Count 187 K/mm3 (142-424); Red Blood Count 4.15 M/mm3 (4.20-5.40); Red Cell Distribution Width 12.9 % (11.5-17.5)
[2024-02-28 09:01] LABS: Albumin Level 4.1 g/dl (3.5-5.0); Chloride 114 mmol/L (98-107); Sodium 139 mmol/L (136-145)
[2024-02-28 09:04] LABS: Alanine Aminotransferase 17 U/L (12-78); Albumin/Globulin Ratio 1.9 (1.1-1.8); Alkaline Phosphatase 95 U/L (38-126); Aspartate Amino Transferase 17 U/L (14-36); Bilirubin,Total 0.5 mg/dl (0.2-1.3); Blood Urea Nitrogen 18 mg/dl (7-17); Carbon Dioxide 23 mmol/L (22.0-30.0); Estimated Glomerular Filt Rate 57 ml/min (>60); GFR (African American) 69 ML/MIN (>60); Globulin 2.2 g/dL (1.3-3.2); Phosphorous 2.8 mg/dl (2.5-4.5); Total Protein,Serum 6.3 g/dl (6.3-8.2)
[2024-02-28 09:05] LABS: Calcium 9.9 mg/dl (8.4-10.2); Glucose 136 mg/dl (74-100); Magnesium 1.4 mg/dl (1.6-2.3)
[2024-03-05 09:41] LABS: Tacrolimus (FK506), Blood 10.9
== END 2024-02-28 23:59 | disposition home or self-care (01) ==
LOC: LAB 07:49
PROVIDERS: Visit Provider Nurse Practitioner Family
DX: Z94.0 Kidney transplant status (principal); E11.8 Type 2 diabetes mellitus with unspecified complications; Z79.899 Other long term (current) drug therapy; I10 Essential (primary) hypertension; E78.5 Hyperlipidemia, unspecified
CPT/HCPCS: 36415; 80053; 80197; 83735; 84100; 85025

== ENCOUNTER 2024-03-01 07:59 | Emergency (ER) | payer MEDICAID, SELFPAY ==
[2024-03-01 08:00] VITALS: BP 113/84; PULSE 80; RESP 18; TEMP 36.8; O2SAT 100; BMI 26.9
--- NOTE | 2024-03-01 08:24 | ED_ITS ---
Discharge Plan Disposition Patient Disposition: Home, Self-Care Condition: Good Prescriptions Prescriptions: New nystatin 100,000 unit/gram cream 1 applic topical BID 7 Days Qty: 15 0RF No Action carvedilol 25 mg Tablet 25 mg PO BID Rx Instructions: must administer with a meal/food loratadine 10 mg Tablet 10 mg PO DAILY ergocalciferol (vitamin D2) [Vitamin D2] 1,250 mcg (50,000 unit) capsule 1,250 mcg PO WEEKLY Patient Comments: TAKE 1 CAPSULE BY MOUTH ONCE PER WEEK (WEEKLY) sevelamer carbonate [Renvela] 800 mg tablet 800 mg PO TID Patient Comments: TAKE 1 TABLET BY MOUTH THREE TIMES A DAY WITH MEALS AND 1 TABLET WITH SNACKS nifedipine 30 mg tablet extended release 30 mg PO DAILY calcitriol 0.5 mcg capsule 0.5 mcg PO DAILY Patient Comments: TAKE 2 CAPSULES BY MOUTH ONCE DAILY lisinopril 10 mg tablet 10 mg PO DAILY Patient Comments: TAKE 1 TABLET BY MOUTH AT BEDTIME Referrals Follow up/Referrals: Provider,Referral, MD [Primary Care Provider] - See instructions Activity Restrictions/Add. Instructions Additional Instructions/Restrictions: Drink plenty of fluids. Use the medications as directed. Follow up with your regular doctor. Let your transplant team know about the results of your urinalysis. GO TO THE ER FOR ANY WORSENING SYMPTOMS We will culture the urine. That is the definitive test to see if this is a UTI. We will contact you with the results in 3 days. Clinical Impressions Clinical Impression: Yeast infection Instructions Patient Instructions: Vaginal Yeast Infection, Nystatin Print Language Print Language: Bengali Discharge ED Provider: Long Nicolas [facility] General Stated complaint: pain when urinating Time Seen by Provider: 03/01/24 08:24 History of Present Illness Provider Complaint: She states that for the past 1 week she has had burning with urination. She denies frequency. She states that she feels like she is irritated around her urethra. She denies any vaginal discharge and any other complaints. She denies back pain and abdominal pain. She has a significant history of receiving a kidney transplant several months ago. She has been in contact with her transplant team regarding her current symptoms and she states that she was told to come here to be checked for a uti. Related Data Home Medications ?Medication ?Instructions ?Recorded ?Confirmed carvedilol 25 mg tablet 25 mg PO BID Hypertension 09/07/22 11/29/23 loratadine 10 mg tablet 10 mg PO DAILY seasonal allergies 09/07/22 11/29/23 ergocalciferol (vitamin D2) 1,250 1,250 mcg PO WEEKLY 09/17/23 11/29/23 mcg (50,000 unit) capsule (Vitamin D2) sevelamer carbonate 800 mg tablet 800 mg PO TID 09/17/23 11/29/23 (Renvela) calcitriol 0.5 mcg capsule 0.5 mcg PO DAILY 11/29/23 11/29/23 lisinopril 10 mg tablet 10 mg PO DAILY 11/29/23 11/29/23 nifedipine 30 mg tablet,extended 30 mg PO DAILY 11/29/23 11/29/23 release Previous Rx's ?Medication ?Instructions ?Recorded nystatin 100,000 unit/gram topical 1 applic topical BID 7 days #15 03/01/24 cream grams Allergies Allergy/AdvReac Type Severity Reaction Status Date / Time NSAIDS (Non-Steroidal Allergy Other Verified 11/15/23 10:34 Anti-Inflamma [facility] Disclaimer: The information contained in this section may have been updated after the patient was seen, as this information can be updated by other users. 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 End stage renal disease Hypertension Seasonal allergies Diabetes type 1, uncontrolled Surgical History History of D&C History of delivery H/O tubal ligation H/O gastric sleeve Family History Grandmother Cancer Mother Cancer Social History Smoking Status: Current every day smoker alcohol intake: former substance use type: denies use current occupational status: disabled Travel in the last 8 weeks: None ROS Obtained: Yes All systems reviewed & no additional complaints except as documented Constitutional Constitutional: Denies chills and Denies fever(s) Eyes Eyes: Denies eye discharge ENT Ears, Nose, Mouth, and Throat: Denies dizziness, Denies otalgia and Denies sore throat Cardiovascular Cardiovascular: Denies chest pain Respiratory Respiratory: Denies shortness of breath, Denies chest congestion, Denies cough, Denies stridor and Denies wheezing Gastrointestinal Gastrointestingal: Denies nausea or vomiting Genitourinary Female Genitourinary: Reports as per HPI, Reports dysuria, Denies urinary frequency, Denies urinary incontinence, Denies urinary hesitancy and Denies urinary urgency Musculoskeletal Musculoskeletal: Reports system reviewed and no additional complaints, except as documented and Denies arthralgias Integumentary/Breasts Skin/Breast: Denies rash Neurologic Neurologic: Denies dizziness and Denies paresthesias Allergic/Immunologic Allergic/Immunologic: Denies wheezing Physical Exam General General appearance: alert and in no apparent distress Head Head exam: atraumatic, normocephalic and normal inspection Eye Eye exam: Present normal appearance, PERRL and EOMI ENT ENT exam: Present normal exam, normal oropharynx, mucous membranes moist, TM's normal bilaterally and normal external ear exam Neck Neck exam: Present normal inspection, full ROM and trachea midline; Absent meningismus or lymphadenopathy Chest Chest inspection: Present normal inspection and symmetric chest wall rise; Absent tenderness Respiratory Respiratory exam: Present normal lung sounds bilaterally; Absent respiratory distress Cardiovascular Cardiovascular exam: Present regular rate and normal rhythm; Absent JVD Abdominal Exam Abdominal exam: Present soft and normal bowel sounds; Absent distention, tenderness or guarding Extremities Exam Extremities exam: Present normal inspection, full ROM and normal capillary refill; Absent calf tenderness Back Exam Back exam: Present normal inspection; Absent tenderness Neurological Exam Neurological exam: Present alert and oriented X3 Psychiatric Psychiatric exam: Present normal affect and normal mood Skin Skin exam: Present warm, dry, intact and normal color Lymphatic Lymphatic Findings: no adenopathy Medical Decision Making Medical Records Medical records reviewed: No I reviewed the patient's medical records. Riaz Inquiry Pt receiving controlled substance: No Lab Data Lab results reviewed: Yes I reviewed the patient's lab results.
[2024-03-01 08:40] LABS: Apearance,Urine Clear (Clear); Color,Urine Yellow (Yellow)
[2024-03-01 08:41] LABS: Bilirubin,Urine Negative (Negative); Blood, Urine Negative (Negative); Glucose,Urine (UA) Negative (Negative); Ketones,Urine Negative (Negative); Protein,Urine 3+ (Negative); UTC Leukocyte Esterase,Urine Negative (Negative); UTC Nitrate,Urine Negative (Negative); Urobilinogen,Urine 0.2 EU/dl (0.2)
[2024-03-01 08:45] VITALS: BP 113/84; PULSE 80; RESP 18; TEMP 36.8; O2SAT 100
== END 2024-03-01 08:47 | disposition home or self-care (01) ==
PROVIDERS: Emergency Provider Nurse Practitioner Family
DX: B37.31 Acute candidiasis of vulva and vagina (principal); R30.0 Dysuria
CPT/HCPCS: 81003; 87086; 99212; 99214; G0463

== ENCOUNTER 2024-03-09 11:28 | Emergency (ER) | payer MEDICAID, SELFPAY ==
[2024-03-09 12:58] VITALS: BP 117/65; PULSE 78; RESP 20; TEMP 36.3; O2SAT 100; BMI 28.0
--- NOTE | 2024-03-09 13:00 | ED_ITS ---
Discharge Plan Disposition Patient Disposition: Home, Self-Care Condition: Good Prescriptions Prescriptions: No Action azithromycin 500 mg tablet 500 mg PO DAILY (DME) OneTouch Ultra Test Strip See Rx Instructions .ROUTE .MEDSUPPLY Qty: 10 Patient Comments: USE 1 STRIP TO CHECK GLUCOSE THREE TIMES DAILY Rx Instructions: As directed atorvastatin 40 mg tablet 40 mg PO DAILY (DME) insulin syringe-needle U-100 [BD Insulin Syringe Ultra-Fine] 0.5 mL 31 gauge x 5/16 syringe See Rx Instructions .ROUTE .MEDSUPPLY Qty: 10 Patient Comments: USE DIRECTED TO INJECT INSULIN 4 PLUS TIMES DAILY IN EVENT OF PUMP FAILURE Rx Instructions: As directed (DME) blood-glucose meter [OneTouch Verio Flex meter] Misc See Rx Instructions .ROUTE .MEDSUPPLY Qty: 1 Rx Instructions: As directed Ozempic 0.25 mg or 0.5 mg (2 mg/3 mL) pen injector SQ Patient Comments: INJECT 0.25 MG SUBCUTANEOUSLY ONCE A WEEK FOR 4 WEEKS, THEN INCREASE TO 0.5 MG ONCE A WEEK UNTIL YOU RETURN TO CLINIC Referrals Follow up/Referrals: Maria A Soria APRN [Primary Care Provider] - See instructions Activity Restrictions/Add. Instructions Additional Instructions/Restrictions: Follow up with your regular doctor and your transplant team. GO TO THE ER FOR ANY WORSENING SYMPTOMS Clinical Impressions Clinical Impression: Acute viral syndrome Instructions Patient Instructions: DI for Viral Syndrome Print Language Print Language: Swazi Discharge ED Provider: Long Nicolas [facility] [place] General Stated complaint: Sore throat, stuffy nose, cough, Mode of Arrival: Ambulatory Source of Information: Patient Limitations: No Limitations Time Seen by Provider: 03/09/24 13:00 Description of Symptoms (Recalled from Triage Doc. by RN): c/o cough, sore throat and congestion starting today HEENT Symptoms (Recalled from RN notes): Yes Resp Symptoms (Recalled from RN notes): Yes Skin Symptoms (Recalled from RN notes): No MS Symptoms (Recalled from RN notes): No Functional Status (Recalled from RN notes): wnl Related Data Home Medications ?Medication ?Instructions ?Recorded ?Confirmed atorvastatin 40 mg tablet 40 mg PO DAILY 03/09/24 03/09/24 azithromycin 500 mg tablet 500 mg PO DAILY 03/09/24 03/09/24 blood sugar diagnostic (OneTouch #10 ea 03/09/24 03/09/24 Ultra Test strips) blood-glucose meter (OneTouch #1 ea 03/09/24 03/09/24 Verio Flex Meter) insulin syringe-needle U-100 0.5 #10 ea 03/09/24 03/09/24 mL 31 gauge x 5/16 (BD Insulin Syringe Ultra-Fine) semaglutide 0.25 mg or 0.5 mg (2 mg SQ 03/09/24 03/09/24 mg/3 mL) subcutaneous pen injector ([employer]) Allergies Allergy/AdvReac Type Severity Reaction Status Date / Time NSAIDS (Non-Steroidal Allergy Other Verified 03/09/24 10:16 Anti-Inflamma Worker's Comp Is this a Worker's Comp case?: No [facility] Disclaimer: The information contained in this section may have been updated after the patient was seen, as this information can be updated by other users. 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 End stage renal disease Hypertension Seasonal allergies Diabetes type 1, uncontrolled Surgical History History of D&C History of delivery H/O tubal ligation H/O gastric sleeve Family History Grandmother Cancer Mother Cancer Social History Smoking Status: Current every day smoker alcohol intake: former substance use type: denies use current occupational status: disabled Travel in the last 8 weeks: None ROS Obtained: Yes All systems reviewed & no additional complaints except as documented Constitutional Constitutional: Reports chills and Reports fever(s) Eyes Eyes: Denies eye discharge ENT Ears, Nose, Mouth, and Throat: Reports as per HPI Cardiovascular Cardiovascular: Denies chest pain Respiratory Respiratory: Denies chest congestion and Reports cough Gastrointestinal Gastrointestingal: Reports nausea; Denies abdominal pain, constipation, cramping, diarrhea or vomiting Musculoskeletal Musculoskeletal: Denies arthralgias Integumentary/Breasts Skin/Breast: Denies rash Neurologic Neurologic: Denies paresthesias Physical Exam General General appearance: alert and in no apparent distress Eye Eye exam: Present normal appearance, PERRL and EOMI ENT ENT exam: Present mucous membranes moist and normal external ear exam Expanded ENT Exam External ear exam: Present normal external inspection TM/Canal exam: Bilateral TM: erythema and bulging Nose exam: Absent sinus tenderness Nasal speculum exam: Bilateral: normal Mouth exam: Present normal external inspection; Absent drooling Teeth exam: Present normal inspection Throat exam: Present tonsillar erythema and tonsillomegaly Neck Neck exam: Present normal inspection, full ROM and trachea midline; Absent tenderness, lymphadenopathy or thyromegaly Chest Chest inspection: Present normal inspection and symmetric chest wall rise; Absent tenderness or rash Respiratory Respiratory exam: Present normal lung sounds bilaterally; Absent respiratory distress, wheezes, stridor or accessory muscle use Cardiovascular Cardiovascular exam: Present regular rate, normal rhythm and normal heart sounds Abdominal Exam Abdominal exam: Present soft; Absent distention, tenderness, guarding, rebound or rigidity Extremities Exam Extremities exam: Present normal inspection, full ROM and normal capillary refill; Absent tenderness or calf tenderness Back Exam Back exam: Present normal inspection and full ROM; Absent tenderness Neurological Exam Neurological exam: Present alert and oriented X3 Psychiatric Psychiatric exam: Present normal affect and normal mood Skin Skin exam: Present warm, dry, intact and normal color Lymphatic Lymphatic Findings: no adenopathy Medical Decision Making Medical Records Medical records reviewed: No I reviewed the patient's medical records. Riaz Inquiry Pt receiving controlled substance: No Vital Signs: 03/09/24 12:58 Temperature 97.3 F L Temperature Source Oral Pulse Rate [Left Radial] 78 Respiratory Rate 20 Blood Pressure [Right Arm] 117/65 Blood Pressure Mean [Right Arm] 82 Blood Pressure Source [Right Arm] Automatic Cuff Blood Pressure Position [Right Arm] Sitting 02 Sat by Pulse Oximetry 100 Oxygen Delivery Method Room Air Lab Data Lab results reviewed: Yes I reviewed the patient's lab results. Orders (Tests/Meds): ORDERS Category Date Time Status Full Resp Panel w/COVID ([facility]) Routine Lab 03/09/24 12:54 Ordered
[2024-03-09 13:10] VITALS: BP 117/65; PULSE 78; RESP 20; TEMP 36.3; O2SAT 100
[2024-03-09 13:32] LABS: Adenovirus,PCR Not Detected (NotDetected); Bordetella Pertussis Not Detected (NotDetected); Chlamydophila Pneumoniae, PCR Not Detected (NotDetected); Coronavirus 19, PCR Not Detected (NotDetected); Coronavirus 229E Not Detected (NotDetected); Coronavirus NL63 Not Detected (NotDetected); Coronavirus OC43 Not Detected (NotDetected); Coronovirus HKU1,PCR Not Detected (NotDetected); Human Metapneumovirus Not Detected (NotDetected); Influenza A, PCR Not Detected (NotDetected); Influenza AH1, 2009 Not Detected (NotDetected); Influenza AH1, PCR Not Detected (NotDetected); Influenza AH3,PCR Not Detected (NotDetected); Influenza B, PCR Not Detected (NotDetected); Mycoplasma Pneumoniae, PCR Not Detected (NotDetected); Parainfluenza 1, PCR Not Detected (NotDetected); Parainfluenza 2, PCR Not Detected (NotDetected); Parainfluenza 3, PCR Not Detected (NotDetected); Parainfluenza 4, PCR Not Detected (NotDetected); Respiratory Syncytial Virus Not Detected (NotDetected)
[2024-03-09 18:36] LABS: Rhinovirus/Enterovirus Detected (NotDetected)
== END 2024-03-09 13:14 | disposition home or self-care (01) ==
PROVIDERS: Emergency Provider Nurse Practitioner Family; PCP Nurse Practitioner
DX: R05.9 Cough, unspecified (principal); B34.1 Enterovirus infection, unspecified; R07.0 Pain in throat; R09.81 Nasal congestion
CPT/HCPCS: 87581; 87632; 87635; 87798; 99212; 99213; G0463

== ENCOUNTER 2024-03-14 08:19 | Outpatient (CLI) | payer MEDICAID, SELFPAY ==
--- NOTE | 2024-03-14 08:31 | US_ITS ---
PROCEDURE: US TRANSVAGINAL CLINICAL INDICATION: pelvic pain COMPARISON: No exams were available for comparison FINDINGS: Transvaginal sonographic images of the pelvis were obtained. UTERUS: 7.8cm x 4.8 cmx 4.4cm anteverted with a combined endometrial thickness of 12mm and appears trilaminar. A scar is noted. LEFT OVARY: 3.1cmx2.4cmx2.7cm with a volume of 10.5ml. There are multiple small peripheral follicles. RIGHT OVARY: 2.7 cmx 2.9 cmx2.3cm with a volume of 9.4ml. There are several small peripheral follicles. Both ovaries are seen and appear polycystic. Doppler flow to both ovaries are seen. There is no fluid in the cul-de-sac. IMPRESSION: 1. Anteverted uterus normal in shape and size. The endometrium is thickened and premenstrual. 2. Both ovaries are seen and appear polycystic with the left more than right. 3. Blood flow to both ovaries is seen. 4. No fluid in the cul-de-sac. Dictated by: Osbaldo Zarco MD 03/14/2024 11:08 Osbaldo Zarco MD in OV 03/14/2024 11:08
[2024-03-14 08:52] LABS: Basophils % 0.6 % (0.1-2.0); Eosinophils # 0.1 K/mm3 (0.0-0.4); Eosinophils % 2.3 % (0.1-12.0); Hematocrit 41.3 % (37.0-47.0); Hemoglobin 13.2 g/dL (12.2-16.2); Lymphocytes # 0.4 K/mm3 (0.7-4.5); Lymphocytes % 17.8 % (10-50); Mean Corpuscular HGB Conc 31.9 g/dL (31.8-35.4); Mean Corpuscular Hemoglobin 31.7 pg (27.0-31.2); Mean Corpuscular Volume 99.4 fl (81-99); Mean Platelet Volume 10.7 fl (7.4-10.4); Monocytes # 0.3 K/mm3 (0.1-1.0); Monocytes % 13.8 % (1.7-9.3); Neutrophils # 1.6 K/mm3 (1.8-7.8); Neutrophils % 65.6 % (37.0-80.0); Platelet Count 145 K/mm3 (142-424); Red Blood Count 4.16 M/mm3 (4.20-5.40); Red Cell Distribution Width 12.8 % (11.5-17.5); White Blood Count 2.4 K/mm3 (4.8-10.8)
[2024-03-14 09:45] LABS: Chloride 111 mmol/L (98-107); Sodium 138 mmol/L (136-145)
[2024-03-14 09:48] LABS: Alanine Aminotransferase 24 U/L (12-78); Albumin/Globulin Ratio 1.8 (1.1-1.8); Alkaline Phosphatase 91 U/L (38-126); Aspartate Amino Transferase 22 U/L (14-36); Bilirubin,Total 0.4 mg/dl (0.2-1.3); Blood Urea Nitrogen 15 mg/dl (7-17); Carbon Dioxide 22 mmol/L (22.0-30.0); Estimated Glomerular Filt Rate 72 ml/min (>60); GFR (African American) 87 ML/MIN (>60); Globulin 2.2 g/dL (1.3-3.2); Total Protein,Serum 6.2 g/dl (6.3-8.2)
[2024-03-14 09:49] LABS: Calcium 9.3 mg/dl (8.4-10.2); Glucose 134 mg/dl (74-100); Magnesium 1.5 mg/dl (1.6-2.3); Phosphorous 2.6 mg/dl (2.5-4.5)
[2024-03-19 12:50] LABS: Tacrolimus (FK506), Blood 4.9
== END 2024-03-14 23:59 | disposition home or self-care (01) ==
LOC: RAD 08:19
PROVIDERS: Nurse Practitioner Family; Visit Provider Nurse Practitioner Obstetrics & Gynecology
DX: R10.2 Pelvic and perineal pain (principal); Z94.0 Kidney transplant status; E11.8 Type 2 diabetes mellitus with unspecified complications; I10 Essential (primary) hypertension; E78.5 Hyperlipidemia, unspecified; Z79.899 Other long term (current) drug therapy; Z79.4 Long term (current) use of insulin; Z79.85 Long-term (current) use of injectable non-insulin antidiabetic drugs; F17.200 Nicotine dependence, unspecified, uncomplicated
CPT/HCPCS: 36415; 76830; 80053; 80197; 83735; 84100; 85025

== ENCOUNTER 2024-03-21 07:46 | Outpatient (CLI) | payer MEDICAID, SELFPAY ==
[2024-03-21 08:04] LABS: Basophils % 0.8 % (0.1-2.0); Eosinophils # 0.1 K/mm3 (0.0-0.4); Eosinophils % 2.3 % (0.1-12.0); Hematocrit 42.9 % (37.0-47.0); Hemoglobin 13.4 g/dL (12.2-16.2); Lymphocytes # 0.5 K/mm3 (0.7-4.5); Lymphocytes % 22.3 % (10-50); Mean Corpuscular HGB Conc 31.1 g/dL (31.8-35.4); Mean Corpuscular Hemoglobin 30.9 pg (27.0-31.2); Mean Corpuscular Volume 99.1 fl (81-99); Mean Platelet Volume 11.6 fl (7.4-10.4); Monocytes # 0.3 K/mm3 (0.1-1.0); Monocytes % 13.7 % (1.7-9.3); Neutrophils # 1.3 K/mm3 (1.8-7.8); Neutrophils % 60.9 % (37.0-80.0); Platelet Count 156 K/mm3 (142-424); Red Blood Count 4.33 M/mm3 (4.20-5.40); Red Cell Distribution Width 12.9 % (11.5-17.5); White Blood Count 2.1 K/mm3 (4.8-10.8)
[2024-03-21 09:44] LABS: Alanine Aminotransferase 33 U/L (12-78); Albumin Level 4.1 g/dl (3.5-5.0); Albumin/Globulin Ratio 1.5 (1.1-1.8); Alkaline Phosphatase 97 U/L (38-126); Anion Gap 10.6 mEq/L (5-15); Aspartate Amino Transferase 30 U/L (14-36); Bilirubin,Total 0.5 mg/dl (0.2-1.3); Blood Urea Nitrogen 16 mg/dl (7-17); Carbon Dioxide 23 mmol/L (22.0-30.0); Chloride 113 mmol/L (98-107); Estimated Glomerular Filt Rate 63 ml/min (>60); GFR (African American) 77 ML/MIN (>60); Globulin 2.7 g/dL (1.3-3.2); Glucose 147 mg/dl (74-100); Magnesium 1.6 mg/dl (1.6-2.3); Phosphorous 3.2 mg/dl (2.5-4.5); Potassium 5.6 mmoL/L (3.5-5.1); Sodium 141 mmol/L (136-145); Total Protein,Serum 6.8 g/dl (6.3-8.2)
[2024-03-25 07:00] LABS: Tacrolimus (FK506), Blood 8.2
== END 2024-03-21 23:59 | disposition home or self-care (01) ==
LOC: LAB 07:47
PROVIDERS: Visit Provider Nurse Practitioner Family
DX: Z94.0 Kidney transplant status (principal); E11.8 Type 2 diabetes mellitus with unspecified complications; I10 Essential (primary) hypertension; Z01.89 Encounter for other specified special examinations; Z79.899 Other long term (current) drug therapy; E78.5 Hyperlipidemia, unspecified
CPT/HCPCS: 36415; 80053; 80197; 83735; 84100; 85025

== ENCOUNTER 2024-03-28 07:46 | Outpatient (CLI) | payer MEDICAID, SELFPAY ==
[2024-03-28 07:58] LABS: Microscopic, Urine URINE MICROSCOPIC (MICROSCOPIC)
[2024-03-28 08:24] LABS: Basophils % 0.8 % (0.1-2.0); Hematocrit 38.4 % (37.0-47.0); Hemoglobin 12.4 g/dL (12.2-16.2); Lymphocytes # 0.4 K/mm3 (0.7-4.5); Lymphocytes % 24.9 % (10-50); Mean Corpuscular HGB Conc 32.4 g/dL (31.8-35.4); Mean Corpuscular Hemoglobin 31.2 pg (27.0-31.2); Mean Corpuscular Volume 96.4 fl (81-99); Mean Platelet Volume 11.7 fl (7.4-10.4); Monocytes # 0.2 K/mm3 (0.1-1.0); Monocytes % 12.1 % (1.7-9.3); Neutrophils % 60.2 % (37.0-80.0); Platelet Count 149 K/mm3 (142-424); Red Blood Count 3.98 M/mm3 (4.20-5.40); Red Cell Distribution Width 12.9 % (11.5-17.5); White Blood Count 1.6 K/mm3 (4.8-10.8)
[2024-03-28 08:44] LABS: Alanine Aminotransferase 46 U/L (12-78); Albumin Level 3.8 g/dl (3.5-5.0); Albumin/Globulin Ratio 1.5 (1.1-1.8); Alkaline Phosphatase 99 U/L (38-126); Anion Gap 10.4 mEq/L (5-15); Aspartate Amino Transferase 35 U/L (14-36); Bilirubin,Total 0.6 mg/dl (0.2-1.3); Blood Urea Nitrogen 12 mg/dl (7-17); Calcium 9.7 mg/dl (8.4-10.2); Carbon Dioxide 23 mmol/L (22.0-30.0); Chloride 110 mmol/L (98-107); Chol/HDL Ratio 3.2 (1-3.5); Cholesterol 116 mg/dl (140-200); Estimated Glomerular Filt Rate 72 ml/min (>60); GFR (African American) 87 ML/MIN (>60); Globulin 2.5 g/dL (1.3-3.2); Glucose 136 mg/dl (74-100); HDL Cholesterol 36 mg/dl (40-60); Magnesium 1.4 mg/dl (1.6-2.3); Phosphorous 3.4 mg/dl (2.5-4.5); Potassium 5.4 mmoL/L (3.5-5.1); Sodium 138 mmol/L (136-145); Total Protein,Serum 6.3 g/dl (6.3-8.2); Triglycerides 144 mg/dl (30-150); VLDL Cholesterol 29 mg/dL (0-40)
[2024-03-28 08:54] LABS: Direct LDL Cholesterol 47.33 mg/dL (100-129)
[2024-03-28 15:46] LABS: Appearance,Urine CLEAR (Clear); Bilirubin,Urine Negative (Negative); Blood, Urine Negative (Negative); Color,Urine YELLOW (Yellow); Glucose,Urine (UA) Negative (Negative); Ketones,Urine Negative (Negative); Leukocyte Esterase,Urine Negative (Negative); Nitrate,Urine Negative (Negative); Protein,Urine Negative (Negative); Specific Gravity, Urine >= 1.030 (1.005-1.030); Urobilinogen,Urine 0.2 EU/dl (0.2)
[2024-03-28 15:49] LABS: Bacteria,Urine 1+ /lpf; WBC,Urine Occasional #/hpf (0-3)
[2024-03-28 16:01] LABS: Creatinine,Urine Random 193 mg/dL (Not Estab.)
[2024-03-30 13:21] LABS: BKV DNA, Quant PCR, Plasma Negative (Negative)
[2024-04-02 11:29] LABS: Tacrolimus (FK506), Blood 8.4
== END 2024-03-28 23:59 | disposition home or self-care (01) ==
LOC: LAB 07:47
PROVIDERS: Visit Provider Nurse Practitioner Family
DX: Z94.0 Kidney transplant status (principal); E11.8 Type 2 diabetes mellitus with unspecified complications; I10 Essential (primary) hypertension; Z01.89 Encounter for other specified special examinations; Z79.899 Other long term (current) drug therapy; E78.5 Hyperlipidemia, unspecified; Z72.0 Tobacco use; Z79.85 Long-term (current) use of injectable non-insulin antidiabetic drugs
CPT/HCPCS: 36415; 80053; 80061; 80197; 81001; 82570; 83735; 84100; 84156; 85025; 87799

== ENCOUNTER 2024-04-05 07:47 | Outpatient (CLI) | payer MEDICAID, SELFPAY ==
[2024-04-05 08:10] LABS: Basophils % 0.5 % (0.1-2.0); Eosinophils # 0.1 K/mm3 (0.0-0.4); Eosinophils % 2.1 % (0.1-12.0); Hematocrit 37.8 % (37.0-47.0); Lymphocytes # 0.8 K/mm3 (0.7-4.5); Mean Corpuscular HGB Conc 31.8 g/dL (31.8-35.4); Mean Corpuscular Volume 97.3 fl (81-99); Monocytes # 0.2 K/mm3 (0.1-1.0); Monocytes % 9.7 % (1.7-9.3); Neutrophils # 1.1 K/mm3 (1.8-7.8); Neutrophils % 51.7 % (37.0-80.0); Platelet Count 149 K/mm3 (142-424); Red Blood Count 3.88 M/mm3 (4.20-5.40); Red Cell Distribution Width 12.9 % (11.5-17.5); White Blood Count 2.2 K/mm3 (4.8-10.8)
[2024-04-05 09:28] LABS: Alanine Aminotransferase 63 U/L (12-78); Albumin Level 3.6 g/dl (3.5-5.0); Albumin/Globulin Ratio 1.4 (1.1-1.8); Alkaline Phosphatase 110 U/L (38-126); Anion Gap 8.6 mEq/L (5-15); Aspartate Amino Transferase 44 U/L (14-36); Bilirubin,Total 0.6 mg/dl (0.2-1.3); Blood Urea Nitrogen 15 mg/dl (7-17); Calcium 9.8 mg/dl (8.4-10.2); Carbon Dioxide 23 mmol/L (22.0-30.0); Chloride 112 mmol/L (98-107); Estimated Glomerular Filt Rate 63 ml/min (>60); GFR (African American) 77 ML/MIN (>60); Globulin 2.5 g/dL (1.3-3.2); Glucose 137 mg/dl (74-100); Magnesium 1.5 mg/dl (1.6-2.3); Phosphorous 2.9 mg/dl (2.5-4.5); Potassium 5.6 mmoL/L (3.5-5.1); Sodium 138 mmol/L (136-145); Total Protein,Serum 6.1 g/dl (6.3-8.2)
== END 2024-04-05 23:59 | disposition home or self-care (01) ==
LOC: LAB 07:51
PROVIDERS: Visit Provider Nurse Practitioner Family
DX: Z01.89 Encounter for other specified special examinations (principal); Z79.899 Other long term (current) drug therapy; E78.5 Hyperlipidemia, unspecified; I10 Essential (primary) hypertension; E11.8 Type 2 diabetes mellitus with unspecified complications; Z94.0 Kidney transplant status; Z72.0 Tobacco use; Z79.85 Long-term (current) use of injectable non-insulin antidiabetic drugs
CPT/HCPCS: 36415; 80053; 80197; 83735; 84100; 85025

== ENCOUNTER 2024-04-11 07:58 | Outpatient (CLI) | payer MEDICAID, SELFPAY ==
[2024-04-11 08:43] LABS: Basophils % 0.3 % (0.1-2.0); Eosinophils # 0.1 K/mm3 (0.0-0.4); Hematocrit 37.1 % (37.0-47.0); Lymphocytes # 1.1 K/mm3 (0.7-4.5); Lymphocytes % 38.5 % (10-50); Mean Corpuscular HGB Conc 32.3 g/dL (31.8-35.4); Mean Corpuscular Volume 95.7 fl (81-99); Mean Platelet Volume 9.8 fl (7.4-10.4); Monocytes # 0.2 K/mm3 (0.1-1.0); Monocytes % 5.7 % (1.7-9.3); Neutrophils # 1.4 K/mm3 (1.8-7.8); Neutrophils % 51.4 % (37.0-80.0); Platelet Count 162 K/mm3 (142-424); Red Blood Count 3.87 M/mm3 (4.20-5.40); Red Cell Distribution Width 12.8 % (11.5-17.5); White Blood Count 2.8 K/mm3 (4.8-10.8)
[2024-04-11 09:33] LABS: Alanine Aminotransferase 45 U/L (12-78); Albumin/Globulin Ratio 1.8 (1.1-1.8); Alkaline Phosphatase 108 U/L (38-126); Anion Gap 8.7 mEq/L (5-15); Aspartate Amino Transferase 31 U/L (14-36); Bilirubin,Total 0.7 mg/dl (0.2-1.3); Blood Urea Nitrogen 18 mg/dl (7-17); Calcium 9.9 mg/dl (8.4-10.2); Carbon Dioxide 21 mmol/L (22.0-30.0); Chloride 113 mmol/L (98-107); Estimated Glomerular Filt Rate 51 ml/min (>60); GFR (African American) 62 ML/MIN (>60); Globulin 2.2 g/dL (1.3-3.2); Glucose 146 mg/dl (74-100); Magnesium 1.6 mg/dl (1.6-2.3); Phosphorous 3.3 mg/dl (2.5-4.5); Potassium 5.7 mmoL/L (3.5-5.1); Sodium 137 mmol/L (136-145); Total Protein,Serum 6.2 g/dl (6.3-8.2)
[2024-04-17 13:08] LABS: Tacrolimus (FK506), Blood 10.4
== END 2024-04-11 23:59 | disposition home or self-care (01) ==
LOC: LAB 07:59
PROVIDERS: Visit Provider Nurse Practitioner Family
DX: Z01.89 Encounter for other specified special examinations (principal); Z79.899 Other long term (current) drug therapy; E78.5 Hyperlipidemia, unspecified; I10 Essential (primary) hypertension; E11.8 Type 2 diabetes mellitus with unspecified complications; Z94.0 Kidney transplant status; Z72.0 Tobacco use; Z79.85 Long-term (current) use of injectable non-insulin antidiabetic drugs
CPT/HCPCS: 36415; 80053; 80197; 83735; 84100; 85025

== ENCOUNTER 2024-04-16 08:02 | Outpatient (CLI) | payer MEDICAID, SELFPAY ==
[2024-04-16 08:53] LABS: Basophils % 0.2 % (0.1-2.0); Eosinophils # 0.1 K/mm3 (0.0-0.4); Eosinophils % 3.3 % (0.1-12.0); Hematocrit 35.5 % (37.0-47.0); Hemoglobin 11.6 g/dL (12.2-16.2); Lymphocytes # 0.8 K/mm3 (0.7-4.5); Lymphocytes % 31.8 % (10-50); Mean Corpuscular HGB Conc 32.6 g/dL (31.8-35.4); Mean Corpuscular Hemoglobin 31.4 pg (27.0-31.2); Mean Corpuscular Volume 96.1 fl (81-99); Monocytes # 0.1 K/mm3 (0.1-1.0); Monocytes % 2.3 % (1.7-9.3); Neutrophils # 1.5 K/mm3 (1.8-7.8); Neutrophils % 62.4 % (37.0-80.0); Platelet Count 182 K/mm3 (142-424); Red Blood Count 3.69 M/mm3 (4.20-5.40); Red Cell Distribution Width 13.2 % (11.5-17.5); White Blood Count 2.4 K/mm3 (4.8-10.8)
[2024-04-16 09:16] LABS: Albumin Level 3.8 g/dl (3.5-5.0)
[2024-04-16 09:17] LABS: Chloride 110 mmol/L (98-107); Potassium 5.8 mmoL/L (3.5-5.1); Sodium 137 mmol/L (136-145)
[2024-04-16 09:19] LABS: Alanine Aminotransferase 34 U/L (12-78); Albumin/Globulin Ratio 1.6 (1.1-1.8); Alkaline Phosphatase 114 U/L (38-126); Anion Gap 12.8 mEq/L (5-15); Aspartate Amino Transferase 27 U/L (14-36); Bilirubin,Total 0.7 mg/dl (0.2-1.3); Blood Urea Nitrogen 16 mg/dl (7-17); Carbon Dioxide 20 mmol/L (22.0-30.0); Estimated Glomerular Filt Rate 57 ml/min (>60); GFR (African American) 69 ML/MIN (>60); Globulin 2.4 g/dL (1.3-3.2); Total Protein,Serum 6.2 g/dl (6.3-8.2)
[2024-04-16 09:20] LABS: Chol/HDL Ratio 3.2 (1-3.5); Cholesterol 100 mg/dl (140-200); Glucose 160 mg/dl (74-100); HDL Cholesterol 31 mg/dl (40-60); Magnesium 1.6 mg/dl (1.6-2.3); Phosphorous 2.8 mg/dl (2.5-4.5); Triglycerides 145 mg/dl (30-150); VLDL Cholesterol 29 mg/dL (0-40)
[2024-04-16 09:31] LABS: Direct LDL Cholesterol 38.02 mg/dL (100-129)
[2024-04-16 15:24] LABS: Microscopic, Urine URINE MICROSCOPIC (MICROSCOPIC)
[2024-04-16 15:45] LABS: Tacrolimus (FK506), Blood 10.4
[2024-04-16 16:57] LABS: Appearance,Urine CLEAR (Clear); Bilirubin,Urine Negative (Negative); Blood, Urine Negative (Negative); Color,Urine YELLOW (Yellow); Glucose,Urine (UA) TRACE (Negative); Ketones,Urine Negative (Negative); Leukocyte Esterase,Urine Negative (Negative); Nitrate,Urine Negative (Negative); Protein,Urine Negative (Negative); Specific Gravity, Urine >= 1.030 (1.005-1.030); Urobilinogen,Urine 0.2 EU/dl (0.2)
[2024-04-16 17:07] LABS: Creatinine,Urine Random 203 mg/dL (Not Estab.); Total Protein,Urine Random < 5.0 mg/dL (0.0-12.0)
[2024-04-18 15:26] LABS: CMV Quant DNA PCR (Plasma) 665 IU/mL (Negative); log10 CMV Qn DNA Pl 2.823 (.)
[2024-04-18 16:26] LABS: BKV DNA, Quant PCR, Plasma Negative (Negative)
== END 2024-04-16 23:59 | disposition home or self-care (01) ==
LOC: LAB 08:03
PROVIDERS: Visit Provider Nurse Practitioner Family
DX: Z01.89 Encounter for other specified special examinations (principal); Z79.899 Other long term (current) drug therapy; E78.5 Hyperlipidemia, unspecified; E11.8 Type 2 diabetes mellitus with unspecified complications; I10 Essential (primary) hypertension; Z94.0 Kidney transplant status; Z72.0 Tobacco use; Z79.85 Long-term (current) use of injectable non-insulin antidiabetic drugs
CPT/HCPCS: 36415; 80053; 80061; 80197; 81001; 82570; 83735; 84100; 84156; 85025; 87497; 87799

== ENCOUNTER 2024-04-25 08:24 | Outpatient (CLI) | payer MEDICAID, SELFPAY ==
[2024-04-25 09:01] LABS: Albumin Level 4.1 g/dl (3.5-5.0); Chloride 111 mmol/L (98-107); Sodium 139 mmol/L (136-145)
[2024-04-25 09:02] LABS: Potassium 5.4 mmoL/L (3.5-5.1)
[2024-04-25 09:04] LABS: Alanine Aminotransferase 29 U/L (12-78); Albumin/Globulin Ratio 1.8 (1.1-1.8); Alkaline Phosphatase 101 U/L (38-126); Anion Gap 13.4 mEq/L (5-15); Aspartate Amino Transferase 21 U/L (14-36); Bilirubin,Total 0.5 mg/dl (0.2-1.3); Blood Urea Nitrogen 19 mg/dl (7-17); Carbon Dioxide 20 mmol/L (22.0-30.0); Estimated Glomerular Filt Rate 51 ml/min (>60); GFR (African American) 62 ML/MIN (>60); Globulin 2.3 g/dL (1.3-3.2); Phosphorous 3.2 mg/dl (2.5-4.5); Total Protein,Serum 6.4 g/dl (6.3-8.2)
[2024-04-25 09:05] LABS: Calcium 10.2 mg/dl (8.4-10.2); Glucose 117 mg/dl (74-100); Magnesium 1.6 mg/dl (1.6-2.3)
[2024-04-25 09:07] LABS: Basophils % 0.3 % (0.1-2.0); Eosinophils % 1.5 % (0.1-12.0); Hematocrit 34.3 % (37.0-47.0); Hemoglobin 11.6 g/dL (12.2-16.2); Lymphocytes # 0.7 K/mm3 (0.7-4.5); Lymphocytes % 29.7 % (10-50); Mean Corpuscular HGB Conc 33.7 g/dL (31.8-35.4); Mean Corpuscular Volume 91.8 fl (81-99); Mean Platelet Volume 9.3 fl (7.4-10.4); Monocytes # 0.1 K/mm3 (0.1-1.0); Monocytes % 2.4 % (1.7-9.3); Neutrophils # 1.6 K/mm3 (1.8-7.8); Neutrophils % 66.1 % (37.0-80.0); Platelet Count 205 K/mm3 (142-424); Red Blood Count 3.74 M/mm3 (4.20-5.40); White Blood Count 2.5 K/mm3 (4.8-10.8)
[2024-04-28 14:30] LABS: Tacrolimus (FK506), Blood 12.4 ng/mL (2.0-20.0)
== END 2024-04-25 23:59 | disposition home or self-care (01) ==
LOC: LAB 08:26
PROVIDERS: Visit Provider Nurse Practitioner Family
DX: Z94.0 Kidney transplant status (principal); E11.8 Type 2 diabetes mellitus with unspecified complications; I10 Essential (primary) hypertension; Z01.89 Encounter for other specified special examinations; Z79.899 Other long term (current) drug therapy; E78.5 Hyperlipidemia, unspecified
CPT/HCPCS: 36415; 80053; 80197; 83735; 84100; 85025

== ENCOUNTER 2024-04-30 07:58 | Outpatient (CLI) | payer MEDICAID, SELFPAY ==
[2024-04-30 08:13] LABS: Microscopic, Urine URINE MICROSCOPIC (MICROSCOPIC)
[2024-04-30 08:26] LABS: Basophils % 0.3 % (0.1-2.0); Eosinophils % 1.1 % (0.1-12.0); Hematocrit 34.5 % (37.0-47.0); Hemoglobin 11.5 g/dL (12.2-16.2); Lymphocytes # 0.7 K/mm3 (0.7-4.5); Lymphocytes % 33.6 % (10-50); Mean Corpuscular HGB Conc 33.2 g/dL (31.8-35.4); Mean Corpuscular Hemoglobin 31.2 pg (27.0-31.2); Mean Corpuscular Volume 94.1 fl (81-99); Mean Platelet Volume 10.1 fl (7.4-10.4); Neutrophils # 1.4 K/mm3 (1.8-7.8); Platelet Count 208 K/mm3 (142-424); Red Blood Count 3.67 M/mm3 (4.20-5.40); Red Cell Distribution Width 14.8 % (11.5-17.5); White Blood Count 2.2 K/mm3 (4.8-10.8)
[2024-04-30 08:46] LABS: Appearance,Urine CLEAR (Clear); Bilirubin,Urine Negative (Negative); Blood, Urine Negative (Negative); Color,Urine YELLOW (Yellow); Glucose,Urine (UA) Negative (Negative); Ketones,Urine Negative (Negative); Leukocyte Esterase,Urine Negative (Negative); Nitrate,Urine Negative (Negative); Protein,Urine Negative (Negative); Specific Gravity, Urine 1.025 (1.005-1.030); Urobilinogen,Urine 0.2 EU/dl (0.2)
[2024-04-30 09:06] LABS: Creatinine,Urine Random 205 mg/dL (Not Estab.); Total Protein,Urine Random < 5.0 mg/dL (0.0-12.0)
[2024-04-30 09:07] LABS: Albumin Level 3.9 g/dl (3.5-5.0); Chloride 112 mmol/L (98-107); Potassium 5.5 mmoL/L (3.5-5.1); Sodium 138 mmol/L (136-145)
[2024-04-30 09:09] LABS: Blood Urea Nitrogen 17 mg/dl (7-17); Estimated Glomerular Filt Rate 57 ml/min (>60); GFR (African American) 69 ML/MIN (>60)
[2024-04-30 09:10] LABS: Alanine Aminotransferase 22 U/L (12-78); Albumin/Globulin Ratio 1.7 (1.1-1.8); Alkaline Phosphatase 99 U/L (38-126); Anion Gap 12.5 mEq/L (5-15); Aspartate Amino Transferase 19 U/L (14-36); Bilirubin,Total 0.5 mg/dl (0.2-1.3); Calcium 9.9 mg/dl (8.4-10.2); Carbon Dioxide 19 mmol/L (22.0-30.0); Cholesterol 109 mg/dl (140-200); Globulin 2.3 g/dL (1.3-3.2); Glucose 124 mg/dl (74-100); Magnesium 1.5 mg/dl (1.6-2.3); Phosphorous 3.4 mg/dl (2.5-4.5); Total Protein,Serum 6.2 g/dl (6.3-8.2); Triglycerides 80 mg/dl (30-150); VLDL Cholesterol 16 mg/dL (0-40)
[2024-04-30 09:11] LABS: Chol/HDL Ratio 2.5 (1-3.5); HDL Cholesterol 43 mg/dl (40-60)
[2024-04-30 09:22] LABS: Direct LDL Cholesterol 42.83 mg/dL (100-129)
[2024-04-30 09:23] LABS: Squamous Epithelial Cell,Urine Occasional #/hpf (0-5)
[2024-05-02 16:16] LABS: BKV DNA, Quant PCR, Plasma Negative (Negative)
[2024-05-04 15:43] LABS: CMV Quant DNA PCR (Plasma) Negative (Negative)
== END 2024-04-30 23:59 | disposition home or self-care (01) ==
LOC: LAB 08:00
PROVIDERS: Visit Provider Nurse Practitioner Family
DX: Z94.0 Kidney transplant status (principal); E11.8 Type 2 diabetes mellitus with unspecified complications; I10 Essential (primary) hypertension; E78.5 Hyperlipidemia, unspecified; Z01.89 Encounter for other specified special examinations; Z79.899 Other long term (current) drug therapy
CPT/HCPCS: 36415; 80053; 80061; 80197; 81001; 82570; 83735; 84100; 84156; 85025; 87497; 87799

== ENCOUNTER 2024-05-02 09:34 | Emergency (ER) | payer MEDICAID, SELFPAY ==
[2024-05-02 09:59] VITALS: BP 105/54; PULSE 87; RESP 18; TEMP 36.6; O2SAT 100; BMI 27.1
--- NOTE | 2024-05-02 10:08 | ED_ITS ---
Discharge Plan Disposition Patient Disposition: Home, Self-Care Condition: Good Prescriptions Prescriptions: No Action azithromycin 500 mg tablet 500 mg PO DAILY (DME) OneTouch Ultra Test Strip See Rx Instructions .ROUTE .MEDSUPPLY Qty: 10 Patient Comments: USE 1 STRIP TO CHECK GLUCOSE THREE TIMES DAILY Rx Instructions: As directed atorvastatin 40 mg tablet 40 mg PO DAILY (DME) insulin syringe-needle U-100 [BD Insulin Syringe Ultra-Fine] 0.5 mL 31 gauge x 5/16 syringe See Rx Instructions .ROUTE .MEDSUPPLY Qty: 10 Patient Comments: USE DIRECTED TO INJECT INSULIN 4 PLUS TIMES DAILY IN EVENT OF PUMP FAILURE Rx Instructions: As directed (DME) blood-glucose meter [OneTouch Verio Flex meter] Misc See Rx Instructions .ROUTE .MEDSUPPLY Qty: 1 Rx Instructions: As directed Ozempic 0.25 mg or 0.5 mg (2 mg/3 mL) pen injector SQ Patient Comments: INJECT 0.25 MG SUBCUTANEOUSLY ONCE A WEEK FOR 4 WEEKS, THEN INCREASE TO 0.5 MG ONCE A WEEK UNTIL YOU RETURN TO CLINIC Referrals Follow up/Referrals: Provider,Referral, MD [Primary Care Provider] - See instructions Activity Restrictions/Add. Instructions Additional Instructions/Restrictions: *Monitor Temp, Over the counter Motrin or Tylenol as directed/as needed Tylenol every 4 hours and Motrin every 6 hours (as long as your family doctor has told you that you can take it) for fever or pain. and straight to ER if unable to lower temp less than 101.0 after medication given *Warm salt water gargles may help to soothe the throat *Throat Lozenges? *Warm fluids like tea with honey may help to soothe the throat? *Sleep elevated *Humidifier/Vaporizer Follow up IMMEDIATELY for new or worsening symptoms or no Noticeable improvement over the next 48-72 hours. 911 for difficulty breathing or swallowing Contact your Transplant center to see what you can and cannot take for cough and nasal congestion You were tested for today for Upper Respiratory Panel with COVID19 your test result should be back in the next 24hours, you may check for your results on the [facility] [facility] Clinical Impressions Clinical Impression: Viral upper respiratory tract infection with cough Instructions Patient Instructions: DI for Viral Upper Respiratory Infection -- Adult, Cough Print Language Print Language: Malawian Discharge ED Provider[place] Yue Zhang [facility] General Stated complaint: congestion, headache Mode of Arrival: Ambulatory Source of Information: Patient Time Seen by Provider: 05/02/24 10:08 Description of Symptoms (Recalled from Triage Doc. by RN): HEADACHE, COUGH, CONGESTION HEENT Symptoms (Recalled from RN notes): No Resp Symptoms (Recalled from RN notes): Yes Skin Symptoms (Recalled from RN notes): No MS Symptoms (Recalled from RN notes): No Functional Status (Recalled from RN notes): WNL History of Present Illness Provider Complaint: Patient states that her son has been sick with similar symptoms and she recently had Kidney transplant and they wanted her to come in and get an URP due to having nasal congestion, headache and cough Denies fever or chills Related Data Home Medications ?Medication ?Instructions ?Recorded ?Confirmed atorvastatin 40 mg tablet 40 mg PO DAILY 03/09/24 03/09/24 azithromycin 500 mg tablet 500 mg PO DAILY 03/09/24 03/09/24 blood sugar diagnostic (OneTouch #10 ea 03/09/24 03/09/24 Ultra Test strips) blood-glucose meter (OneTouch #1 ea 03/09/24 03/09/24 Verio Flex Meter) insulin syringe-needle U-100 0.5 #10 ea 03/09/24 03/09/24 mL 31 gauge x 5/16 (BD Insulin Syringe Ultra-Fine) semaglutide 0.25 mg or 0.5 mg (2 mg SQ 03/09/24 03/09/24 mg/3 mL) subcutaneous pen injector (Innoventureicaempic) Allergies Allergy/AdvReac Type Severity Reaction Status Date / Time NSAIDS (Non-Steroidal Allergy Other Verified 03/09/24 10:16 Anti-Inflamma Worker's Comp Is this a Worker's Comp case?: No [facility] Disclaimer: The information contained in this section may have been updated after the patient was seen, as this information can be updated by other users. 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 End stage renal disease Hypertension Seasonal allergies Diabetes type 1, uncontrolled Surgical History History of D&C History of delivery H/O tubal ligation H/O gastric sleeve Family History Grandmother Cancer Mother Cancer Social History Smoking Status: Current every day smoker alcohol intake: former substance use type: denies use current occupational status: disabled Travel in the last 8 weeks: None ROS Obtained: Yes All systems reviewed & no additional complaints except as documented and Yes Systems reviewed as appropriate & no additional complaints except as documented Constitutional Constitutional: Reports system reviewed and no additional complaints, except as documented, Reports as per HPI and Reports headache(s) ENT Ears, Nose, Mouth, and Throat: Reports system reviewed and no additional complaints, except as documented, Reports as per HPI, Reports headache(s), Reports nasal congestion and Reports nasal discharge Cardiovascular Cardiovascular: Reports system reviewed and no additional complaints, except as documented and Reports as per HPI Respiratory Respiratory: Reports system reviewed and no additional complaints, except as documented, Reports as per HPI and Reports cough Gastrointestinal Gastrointestingal: Reports system reviewed and no additional complaints, except as documented and as per HPI Neurologic Neurologic: Reports headache(s) Physical Exam General General appearance: alert and in no apparent distress ENT ENT exam: Present mucous membranes moist Expanded ENT Exam Nose exam: Present other (clear drainage); Absent sinus tenderness Throat exam: Present normal inspection Respiratory Respiratory exam: Present normal lung sounds bilaterally; Absent respiratory distress Cardiovascular Cardiovascular exam: Present regular rate, normal rhythm and normal heart sounds Neurological Exam Neurological exam: Present alert, oriented X3 and normal gait Medical Decision Making Medical Records Screening: Per USPSTF and CDC recommendations, given the prevalence of disease in our region, it is our hospital?s policy to screen for HIV and viral Hepatitis for all patients aged 18 and over and those with ongoing risk factors. Riaz Inquiry Pt receiving controlled substance: No Riaz was queried for this patient: No Vital Signs: 05/02/24 09:59 Temperature 97.9 F Temperature Source Oral Pulse Rate [Left Brachial] 87 Respiratory Rate 18 Blood Pressure [Left Arm] 105/54 L Blood Pressure Mean [Left Arm] 71 02 Sat by Pulse Oximetry 100
[2024-05-02 10:21] VITALS: BP 105/54; PULSE 87; RESP 18; TEMP 36.6
[2024-05-02 11:41] LABS: Adenovirus,PCR Not Detected (NotDetected); Bordetella Pertussis Not Detected (NotDetected); Chlamydophila Pneumoniae, PCR Not Detected (NotDetected); Coronavirus 19, PCR Not Detected (NotDetected); Coronavirus 229E Not Detected (NotDetected); Coronavirus NL63 Not Detected (NotDetected); Coronavirus OC43 Not Detected (NotDetected); Coronovirus HKU1,PCR Not Detected (NotDetected); Human Metapneumovirus Not Detected (NotDetected); Influenza A, PCR Not Detected (NotDetected); Influenza AH1, 2009 Not Detected (NotDetected); Influenza AH1, PCR Not Detected (NotDetected); Influenza AH3,PCR Not Detected (NotDetected); Influenza B, PCR Not Detected (NotDetected); Mycoplasma Pneumoniae, PCR Not Detected (NotDetected); Parainfluenza 1, PCR Not Detected (NotDetected); Parainfluenza 2, PCR Not Detected (NotDetected); Parainfluenza 3, PCR Not Detected (NotDetected); Parainfluenza 4, PCR Not Detected (NotDetected); Respiratory Syncytial Virus Not Detected (NotDetected); Rhinovirus/Enterovirus Not Detected (NotDetected)
== END 2024-05-02 10:25 | disposition home or self-care (01) ==
PROVIDERS: Emergency Provider Nurse Practitioner
DX: J06.9 Acute upper respiratory infection, unspecified (principal); R05.9 Cough, unspecified
CPT/HCPCS: 87265; 87486; 87581; 87632; 87635; 99213; G0381

== ENCOUNTER 2024-05-14 07:54 | Outpatient (CLI) | payer MEDICAID, SELFPAY ==
[2024-05-14 08:06] LABS: Microscopic, Urine URINE MICROSCOPIC (MICROSCOPIC)
[2024-05-14 08:30] LABS: Basophils % 0.6 % (0.1-2.0); Eosinophils % 0.4 % (0.1-12.0); Hemoglobin 11.6 g/dL (12.2-16.2); Lymphocytes # 0.7 K/mm3 (0.7-4.5); Lymphocytes % 27.4 % (10-50); Mean Corpuscular HGB Conc 34.1 g/dL (31.8-35.4); Mean Corpuscular Hemoglobin 32.7 pg (27.0-31.2); Mean Platelet Volume 9.9 fl (7.4-10.4); Monocytes % 1.8 % (1.7-9.3); Neutrophils # 1.7 K/mm3 (1.8-7.8); Neutrophils % 69.7 % (37.0-80.0); Platelet Count 226 K/mm3 (142-424); Red Blood Count 3.54 M/mm3 (4.20-5.40); Red Cell Distribution Width 16.2 % (11.5-17.5); White Blood Count 2.4 K/mm3 (4.8-10.8)
[2024-05-14 08:41] LABS: Albumin Level 4.1 g/dl (3.5-5.0); Chloride 110 mmol/L (98-107); Sodium 139 mmol/L (136-145)
[2024-05-14 08:42] LABS: Potassium 5.2 mmoL/L (3.5-5.1)
[2024-05-14 08:44] LABS: Alanine Aminotransferase 20 U/L (12-78); Albumin/Globulin Ratio 1.6 (1.1-1.8); Alkaline Phosphatase 91 U/L (38-126); Anion Gap 13.2 mEq/L (5-15); Aspartate Amino Transferase 18 U/L (14-36); Bilirubin,Total 0.6 mg/dl (0.2-1.3); Blood Urea Nitrogen 14 mg/dl (7-17); Carbon Dioxide 21 mmol/L (22.0-30.0); Estimated Glomerular Filt Rate 82 ml/min (>60); GFR (African American) 99 ML/MIN (>60); Globulin 2.5 g/dL (1.3-3.2); Total Protein,Serum 6.6 g/dl (6.3-8.2)
[2024-05-14 08:45] LABS: Calcium 9.6 mg/dl (8.4-10.2); Chol/HDL Ratio 2.5 (1-3.5); Cholesterol 117 mg/dl (140-200); Glucose 145 mg/dl (74-100); HDL Cholesterol 47 mg/dl (40-60); Magnesium 1.4 mg/dl (1.6-2.3); Phosphorous 2.9 mg/dl (2.5-4.5); Triglycerides 99 mg/dl (30-150); VLDL Cholesterol 20 mg/dL (0-40)
[2024-05-14 08:56] LABS: Direct LDL Cholesterol 47.15 mg/dL (100-129)
[2024-05-14 09:35] LABS: Appearance,Urine CLEAR (Clear); Bilirubin,Urine Negative (Negative); Blood, Urine Negative (Negative); Color,Urine YELLOW (Yellow); Glucose,Urine (UA) Negative (Negative); Ketones,Urine Negative (Negative); Leukocyte Esterase,Urine Negative (Negative); Nitrate,Urine Negative (Negative); Protein,Urine Negative (Negative); Specific Gravity, Urine 1.025 (1.005-1.030); Urobilinogen,Urine 0.2 EU/dl (0.2)
[2024-05-14 09:39] LABS: Creatinine,Urine Random 175 mg/dL (Not Estab.); Total Protein,Urine Random < 5.0 mg/dL (0.0-12.0)
[2024-05-14 10:46] LABS: WBC,Urine Occasional #/hpf (0-3)
[2024-05-14 10:48] LABS: Bacteria,Urine Trace /lpf; Squamous Epithelial Cell,Urine Occasional #/hpf (0-5)
[2024-05-16 14:33] LABS: BKV DNA, Quant PCR, Plasma Negative (Negative)
[2024-05-16 19:09] LABS: Tacrolimus (FK506), Blood 6.4 ng/mL (2.0-20.0)
[2024-05-18 13:18] LABS: CMV Quant DNA PCR (Plasma) Negative (Negative)
== END 2024-05-14 23:59 | disposition home or self-care (01) ==
LOC: LAB 07:56
PROVIDERS: Visit Provider Nurse Practitioner Family
DX: Z94.0 Kidney transplant status (principal); E11.8 Type 2 diabetes mellitus with unspecified complications; I10 Essential (primary) hypertension; Z01.89 Encounter for other specified special examinations; Z79.899 Other long term (current) drug therapy; E78.5 Hyperlipidemia, unspecified
CPT/HCPCS: 36415; 80053; 80061; 80197; 81001; 82570; 83735; 84100; 84156; 85025; 87497; 87799

== ENCOUNTER 2024-05-21 08:21 | Outpatient (CLI) | payer MEDICAID, SELFPAY ==
[2024-05-21 08:31] LABS: Microscopic, Urine URINE MICROSCOPIC (MICROSCOPIC)
[2024-05-21 09:12] LABS: Appearance,Urine CLEAR (Clear); Bilirubin,Urine Negative (Negative); Blood, Urine 2+ (Negative); Color,Urine YELLOW (Yellow); Glucose,Urine (UA) Negative (Negative); Ketones,Urine Negative (Negative); Leukocyte Esterase,Urine Negative (Negative); Nitrate,Urine Negative (Negative); Protein,Urine Negative (Negative); Specific Gravity, Urine >= 1.030 (1.005-1.030); Urobilinogen,Urine 0.2 EU/dl (0.2)
[2024-05-21 09:16] LABS: Basophils % 0.4 % (0.1-2.0); Eosinophils % 0.8 % (0.1-12.0); Hematocrit 33.7 % (37.0-47.0); Hemoglobin 11.5 g/dL (12.2-16.2); Lymphocytes # 0.5 K/mm3 (0.7-4.5); Lymphocytes % 25.5 % (10-50); Mean Corpuscular HGB Conc 34.2 g/dL (31.8-35.4); Mean Corpuscular Hemoglobin 32.6 pg (27.0-31.2); Mean Corpuscular Volume 95.2 fl (81-99); Mean Platelet Volume 9.9 fl (7.4-10.4); Monocytes # 0.1 K/mm3 (0.1-1.0); Monocytes % 2.6 % (1.7-9.3); Neutrophils # 1.5 K/mm3 (1.8-7.8); Neutrophils % 70.7 % (37.0-80.0); Platelet Count 200 K/mm3 (142-424); Red Blood Count 3.54 M/mm3 (4.20-5.40); Red Cell Distribution Width 16.4 % (11.5-17.5); White Blood Count 2.1 K/mm3 (4.8-10.8)
[2024-05-21 09:25] LABS: Creatinine,Urine Random 208 mg/dL (Not Estab.); Total Protein,Urine Random < 5.0 mg/dL (0.0-12.0)
[2024-05-21 09:32] LABS: Bacteria,Urine Trace /lpf; WBC,Urine Occasional #/hpf (0-3)
[2024-05-21 09:42] LABS: Alanine Aminotransferase 17 U/L (12-78); Albumin Level 3.9 g/dl (3.5-5.0); Alkaline Phosphatase 91 U/L (38-126); Anion Gap 7.5 mEq/L (5-15); Aspartate Amino Transferase 17 U/L (14-36); Bilirubin,Total 0.6 mg/dl (0.2-1.3); Blood Urea Nitrogen 11 mg/dl (7-17); Calcium 9.6 mg/dl (8.4-10.2); Carbon Dioxide 21 mmol/L (22.0-30.0); Chloride 113 mmol/L (98-107); Chol/HDL Ratio 1.9 (1-3.5); Cholesterol 92 mg/dl (140-200); Estimated Glomerular Filt Rate 82 ml/min (>60); GFR (African American) 99 ML/MIN (>60); Glucose 115 mg/dl (74-100); HDL Cholesterol 48 mg/dl (40-60); Magnesium 1.5 mg/dl (1.6-2.3); Potassium 5.5 mmoL/L (3.5-5.1); Sodium 136 mmol/L (136-145); Total Protein,Serum 5.9 g/dl (6.3-8.2); Triglycerides 74 mg/dl (30-150); VLDL Cholesterol 15 mg/dL (0-40)
[2024-05-21 09:53] LABS: Direct LDL Cholesterol 58.97 mg/dL (100-129)
[2024-05-24 13:16] LABS: Tacrolimus (FK506), Blood 6.4 ng/mL (2.0-20.0)
[2024-05-24 16:38] LABS: CMV Quant DNA PCR (Plasma) Negative (Negative)
[2024-05-26 14:11] LABS: BKV DNA, Quant PCR, Plasma Negative (Negative)
== END 2024-05-21 23:59 | disposition home or self-care (01) ==
LOC: LAB 08:22
PROVIDERS: Visit Provider Nurse Practitioner Family
DX: Z94.0 Kidney transplant status (principal); E11.8 Type 2 diabetes mellitus with unspecified complications; I10 Essential (primary) hypertension; Z01.89 Encounter for other specified special examinations; Z79.899 Other long term (current) drug therapy; E78.5 Hyperlipidemia, unspecified
CPT/HCPCS: 36415; 80053; 80061; 80197; 81001; 82570; 83735; 84100; 84156; 85025; 87497; 87799

== ENCOUNTER 2024-05-30 08:26 | Outpatient (CLI) | payer MEDICAID, SELFPAY ==
--- OUTSIDE RECORDS SUMMARY | 2024-05-30 08:29 | XMS_ITS | Encounter Summary ---
Author Organization [facility] Address [address] [place] [address] Care Team Providers Care Search Engine Optimization Specialist Name Role Phone Unavailable Primary Care Provider Unavailabl e Source Comments This information has been disclosed to you from confidential records protectfrom disclosure by state law. You shall make no further disclosure of thisinformation without the specific, written, and informed release of theindividual to whom it pertains, or as otherwise permitted by law. A generalauthorization for the release of medical or other information is not sufficientfor the purposes of the release of HIV test results or diagnoses. [id number] Health Encounter Details Date Type Department Care Team (Late st Contact Info) Description 12/08/2023 Chart Note [facility] Transplant at [address], [address] [place] [address] Vivian Dee RN Received a VM from patient reporting being transplanted at another center. Social History Tobacco Use Types Packs/Day Years Used Date Smoking Tobacco: Every Day Cigarettes Smokeless Tobacco: Never Alcohol Use Standard Drinks/Week Comments Not Currently 0 (1 standard drink = 0.6 oz pur e alcohol) Comments Unknown Sex and Gender Information Value Date Recorded Sex Assigned at Not on file Legal Sex Female 8:52 AM EST Gender Identity Not on file Sexual Orientation Not on file documented as of this encounter Progress Notes * Vivian Dee RN - 12/08/2023 12:27 PM EDT Received a VM from patient reporting being transplanted at another center. Appt canceled at this time documented in this encounter Plan of Treatment Not on file documented as of this encounter Visit Diagnoses Not on filedocumented in this encounter
--- OUTSIDE RECORDS SUMMARY | 2024-05-30 08:29 | XMS_ITS | Encounter Summary ---
Author Organization [facility] Address [address] [place] [address] Care Team Providers Care Yard Person Name Role Phone Unavailable Primary Care Provider [...] release of HIV test results or diagnoses. [id number] Health Encounter Details Date Type Department Care Team (Late st Contact Info) Description 10/20/2023 Chart Note [facility] Kidney Transplant at [address], [address] [place] [address] Vivian Dee RN Anemia due to chronic kidney disease, on chronic dialysis ([facility]) (Primary Dx); Depression, unspecified depression type; History of bariatric surgery; History of drug abuse ([facility]); Mixed hyperlipidemia; Pre-transplant evaluation for kidney transplant; Type 2 diabetes mellitus with chronic kidney disease on chronic dialysis, with long-term current use of insulin ([facility]); Hypertension secondary to other renal disorders Social History Tobacco Use Types Packs/Day Years Used Date Smoking Tobacco: Every Day Cigarettes Smokeless Tobacco: Never Tobacco Cessation:Ready to Q uit: Not Asked; Counseling Given: Not Answered Alcohol Use Standard Drinks/Week Comments Not Currently 0 (1 standard drink = 0.6 oz pur e alcohol) Comments Unknown Sex and Gender Information Value Date Recorded Sex Assigned at Not on file Legal Sex Female 8:52 AM EST Gender Identity Not on file Sexual Orientation Not on file documented as of this encounter Progress Notes * Vivian Dee RN - 10/20/2023 10:04 AM EDT Chart prep documented in this encounter Plan of Treatment Not on file documented as of this encounter Visit Diagnoses Diagnosis Anemia due to chronic kidney disease, on chronic dialysis ([facility])- Primary Depression, unspecified depression type History of bariatric surgery Bariatric surgery status History of drug abuse ([facility]) Other, mixed, or unspecified nondependent drug abuse, in remission Mixed hyperlipidemia Pre-transplant evaluation for kidney transplant Type 2 diabetes mellitus with chronic kidney disease on chronic dialysis, with long-term current use of insulin ([facility]) Hypertension secondary to other renal disorders documented in this encounter
--- OUTSIDE RECORDS SUMMARY | 2024-05-30 08:29 | XMS_ITS | Encounter Summary ---
Author Organization [facility] Address [address] [place] [address] Care Team Providers Care Allergy Specialist Name Role Phone Unavailable Primary Care [...] release of HIV test results or diagnoses. [id number] Health Encounter Details Date Type Department Care Team (Latest Contact Info) Description 10/17/2023 2:37 PM EDT - 10/17/2023 11:59 PM EDT Hospital Encounter [facility] Radiology [address] [place] [id number] System, Provider Not In Discharge Disposition: Home or Self Care WITHOUT Home Care Services Social History Tobacco Use Types Packs/Day Years Used Date Smoking Tobacco: Some Days Cigarettes 0.5 10 Smokeless Tobacco: Never Alcohol Use Standard Drinks/Week Comments Not Currently 0 (1 standard drink = 0.6 oz pur e alcohol) Comments Unknown Sex and Gender Information Value Date Recorded Sex Assigned at Not on file Legal Sex Female 8:52 AM EST Gender Identity Not on file Sexual Orientation Not on file documented as of this encounter Medications at Time of Discharge acetaminophen (TYLENOL) 325 MG tablet Take 2 tablets (650 mg total) by mouth every 6 hours as needed for Pain or Fever (Take 2 tablets by mouth Every 6 (Six) Hours As Needed for Moderate Pain). atorvastatin (LIPITOR) 40 MG tablet Take 1 tablet (40 mg total) by mouth daily. TAKE 1 TABLET EVERY DAY 6 blood sugar diagnostic (ONETOUCH ULTRA TEST) Strp Use as directed. USE INSTRUCTED TO CHECK BLOOD GLUCOSE 4 TIMES DAILY IN EVENT OF CGM FAILURE calcitRIOL (ROCALTROL) 0.5 MCG capsule Take 1 capsule (0.5 mcg total) by mouth daily. Take 1 capsule by mouth Daily. calcium acetate,phosphat bind, (PHOSLO) 667 mg capsule Take 1 capsule (667 mg total) by mouth 3 times a day with meals. TAKE 1 CAPSULE BY MOUTH THREE TIMES DAILY WITH MEALS AND 1 CAPSULE WITH A SNACK 3 carvediloL (COREG) 6.25 MG tablet Take 1 tablet (6.25 mg total) by mouth 2 times a day with meals. Take 1 tablet by mouth 2 (Two) Times a Day With Meals. ergocalciferol (ERGOCALCIFEROL) 1,250 mcg (50,000 unit) capsule Take 1 capsule (50,000 Units total) by mouth once a week. 0 insulin aspart (NOVOLOG) 100 unit/mL injection for INSULIN PUMP by Subcutaneous Pump route every 72 hours. FOR USE IN INSULIN PUMP TO MAX DAILY DOSE 100 1 insulin lispro (HUMALOG/ADMELOG) 100 unit/mL injection Inject subcutaneously 3 times a day with meals. Inject under the skin into the appropriate area as directed 3 (Three) Times a Day Before Meals. Uses Insulin pump lisinopriL (PRINIVIL) 10 MG tablet Take 2 tablets (20 mg total) by mouth daily. Takes 20mg daily 8 NIFEdipine (ADALAT CC) 30 MG 24 hr tablet 4 ondansetron (ZOFRAN-ODT) 4 MG disintegrating tablet Take 1 tablet (4 mg total) by mouth every 6 hours as needed for Nausea (Take 1 tablet by mouth Every 6 (Six) Hours As Needed for Nausea or Vomiting.). 8 RENVELA 800 mg tablet TAKE 1 TABLET BY MOUTH THREE TIMES A DAY WITH MEALS AND 1 TABLET WITH SNACKS 4 sodium bicarbonate 650 MG tablet Take 1 tablet (650 mg total) by mouth 2 times a day. Take 2 tablets by mouth 2 (Two) Times a Day 8 traZODone (DESYREL) 50 MG tablet TAKE 1 TABLET BY MOUTH ONCE DAILY AT NIGHT AT BEDTIME 4 documented as of this encounter Plan of Treatment Not on file documented as of this encounter Procedures Procedure Name Priority Date/Time Associated Diagnosis Comments XR COMPARISON IMAGES Routine 10/17/2023 2:37 PM EDT documented in this encounter Results * X-ray Comparison Images (10/17/2023 2:37 PM EDT) Narrative EXTERNAL - 10/17/2023 2:37 PM EDT Images associated with this accession number were presented to us for comparison to an examination performed here. us Provider Not In System IMG DIAGNOSTIC IMAGING OR DERABLES Final Result EXTERNAL documented in this encounter Visit Diagnoses Not on filedocumented in this encounter
--- OUTSIDE RECORDS SUMMARY | 2024-05-30 08:29 | XMS_ITS | Encounter Summary ---
Author Organization [facility] Address [address] [place] [address] Care Team Providers Care Card Seller Name Role Phone Unavailable Primary Care Provider [...] release of HIV test results or diagnoses. [id number] Health Encounter Details Date Type Department Care Team (Late st Contact Info) Description 11/30/2023 Chart Note [facility] Kidney Transplant at [address], [address] [place] [phone] Leticia Gregory Chart and excel sheet updated for new appointment day and time. Social History Tobacco Use Types Packs/Day Years [...] as of this encounter Progress Notes * Leticia Gregory - 11/30/2023 7:52 AM EDT Chart and excel sheet updated for new appointment day and time. documented in this encounter Plan of Treatment Not on file documented as of this encounter Visit Diagnoses Not on filedocumented in this encounter
--- OUTSIDE RECORDS SUMMARY | 2024-05-30 08:29 | XMS_ITS | Encounter Summary ---
Author Organization [facility] Address [address] [place] [address] Care Team Providers Care Bench Precision Assembler Name Role Phone Unavailable Primary Care Provider [...] release of HIV test results or diagnoses. [id number] Health Encounter Details Date Type Department Care Team (Late st Contact Info) Description 10/03/2023 Telephone [facility] Kidney Transplant at [address], [address] [place] [address] Bernardo White MA Social History Tobacco Use Types Packs/Day Years Used Date Smoking Tobacco: Never Assessed Comments Unknown Sex and Gender Information Value Date Recorded Sex Assigned at Not on file Legal Sex Female 8:52 AM EST Gender Identity Not on file Sexual Orientation Not on file documented as of this encounter Progress Notes * Bernardo White MA - 10/03/2023 2:26 PM EDT Email address for video link [email or web address] Kidney Transplant Referral Questionnaire Basic Info Previously had a transplant (Type? When? What hospital were you treated?): no Working with or listed at another transplant center (Which [facility] Center?): [facility] Previously declined during transplant evaluation? (Support/lost to follow- up/noncompliance) no Medical/Surgical History If 70yo or older and answer yes to two of the following questions, referral is to be closed. History of Stroke: no Use of blood thinners (eliquis, coumadin, xarelto, etc.): no Hx of CABG/cardiac stents/pacemaker: no Vascular surgery/interventions such as femoral popliteal bypass (does not include fistula/graft surgeries): no Wheelchair use: no Pulmonary HTN seen on Echo or Right heart cath with pulmonary pressures > 40: no If yes to any of the below and over the age of 65 Cardiology HOLD History of heart attack (When? What hospital were you treated?): no History of any procedures on your heart (Stents, valves, pacemaker) (When? What hospital were you treated?): no Additional 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: History of diabetes (Type 1 or 2? When diagnosed?) type 1 19yrs History of cancer (Type? When? What hospital were you treated? Treatment?): no Oxygen Dependent (Prescribed? Continuous?): no Medical Testing: Where do you normally receive your medical care?[facility] stuff TAD or [facility] Kidney biopsy (When? Where) [facility] Stress Test :( When? Where?) (Only obtain if in last 12 months) yes Echocardiogram: (When? Where?) (Only obtain if in last 12 months) yes Routine Health Maintenance - Remind patient to update as need PAP: mar 2023 Mammogram: mar 2023 Colonoscopy (Where? When?): no Dental/Wear Dentures: no COVID Vaccine: no Hepatitis B vaccine series: no Additional Information:. Living Donor(s): no Reminders ([facility] Appointments ONLY): Long appointment , eat lunch prior, bring a snack Please bring a support person with you to your evaluation appointments. Education [x] Video: It is your responsibility to watch the video prior to your appointment. documented in this encounter Plan of Treatment Not on file documented as of this encounter Visit Diagnoses Not on filedocumented in this encounter
--- OUTSIDE RECORDS SUMMARY | 2024-05-30 08:29 | XMS_ITS | Encounter Summary ---
Author Organization [facility] Address [address] [place] [address] Care Team Providers Care Contact Center Analyst Name Role Phone Unavailable Primary Care Provider [...] release of HIV test results or diagnoses. [id number] Health Encounter Details Date Type Department Care Team (Late st Contact Info) Description 10/24/2023 Telephone [facility] Kidney Transplant at [address], [address] [place] [address] Sarai Montiel MA Social History Tobacco Use Types Packs/Day [...] as of this encounter Progress Notes * Sarai Montiel MA - 10/24/2023 1:26 PM EDT Called PT to confirm [facility] [place] appt. PT requested to r/s since she moved. Cancelled and r/s [facility] OR consult for 11/22 1:30 and mailed new appt letter. documented in this encounter Plan of Treatment Not on file documented as of this encounter Visit Diagnoses Not on filedocumented in this encounter
--- OUTSIDE RECORDS SUMMARY | 2024-05-30 08:29 | XMS_ITS | Encounter Summary ---
Author Organization [facility] Address [address] [place] [address] Care Team Providers Care Critical Care Unit Nurse Name Role Phone Unavailable Primary Care Provider [...] release of HIV test results or diagnoses. [id number] Health Encounter Details Date Type Department Care Team (Late st Contact Info) Description 10/13/2023 Abstract [facility] Kidney Transplant at [address], [address] [place] [address] Leticia Gregory ESRD (end stage renal disease) on dialysis ([facility]) (Primary Dx) Social History Tobacco Use Types Packs/Day Years [...] encounter Progress Notes * Leticia Gregory - 10/13/2023 10:37 AM EDT Chart prepped, excel sheet finished. CT ABD/PELV from 05/21/2023 requested from [facility]. [facility] to push image to [facility] PACS. Sent email to PACS to mergeinto patient's chart. documented in this encounter Plan of Treatment Not on file documented as of this encounter Visit Diagnoses Diagnosis ESRD (end stage renal disease) on dialysis ([facility] Primary End stage renal disease documented in this encounter
--- OUTSIDE RECORDS SUMMARY | 2024-05-30 08:29 | XMS_ITS | Clinical Summary ---
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 You shall make no further disclosure of thisinformation without the specific, written, and informed release of theindividual to whom it pertains, or as otherwise permitted by law. A generalauthorization for the release of medical or other information is not sufficientfor the purposes of therelease of HIV test results or diagnoses. [id number] Allergies Active Allergy Reactions Criticality Noted Date Comments Ibuprofen Other (See Comments) High 03/12/2019 end stage kidney failure Nsaids (Non-Steroidal Anti-Inflammatory Drug) 09/13/2022 Medications atorvastatin (LIPITOR) 40 MG tablet Take 1 tablet (40 mg total) by mouth daily. TAKE 1 TABLET EVERY DAY 12/23/19 16 Active lisinopriL (PRINIVIL) 10 MG tablet Take 2 tablets (20 mg total) by mouth daily. Takes 20mg daily 03/14/20 18 Active ondansetron (ZOFRAN-ODT) 4 MG disintegrating tablet Take 1 tablet (4 mg total) by mouth every 6 hours as needed for Nausea (Take 1 tablet by mouth Every 6 (Six) Hours As Needed for Nausea or Vomiting.). 03/14/20 18 Active sodium bicarbonate 650 MG tablet Take 1 tablet (650 mg total) by mouth 2 times a day. Take 2 tablets by mouth 2 (Two) Times a Day 06/14/20 18 Active insulin lispro (HUMALOG/ADMELOG) 100 unit/mL injection Inject subcutaneously 3 times a day with meals. Inject under the skin into the appropriate area as directed 3 (Three) Times a Day Before Meals. Uses Insulin pump Active carvediloL (COREG) 6.25 MG tablet Take 1 tablet (6.25 mg total) by mouth 2 times a day with meals. Take 1 tablet by mouth 2 (Two) Times a Day With Meals. Active acetaminophen (TYLENOL) 325 MG tablet Take 2 tablets (650 mg total) by mouth every 6 hours as needed for Pain or Fever (Take 2 tablets by mouth Every 6 (Six) Hours As Needed for Moderate Pain). Active calcitRIOL (ROCALTROL) 0.5 MCG capsule Take 1 capsule (0.5 mcg total) by mouth daily. Take 1 capsule by mouth Daily. Active calcium acetate,phosphat bind, (PHOSLO) 667 mg capsule Take 1 capsule (667 mg total) by mouth 3 times a day with meals. TAKE 1 CAPSULE BY MOUTH THREE TIMES DAILY WITH MEALS AND 1 CAPSULE WITH A SNACK 11/11/19 23 Active ergocalciferol (ERGOCALCIFEROL) 1,250 mcg (50,000 unit) capsule Take 1 capsule (50,000 Units total) by mouth once a week. 06/03/20 20 Active blood sugar diagnostic (ONETOUCH ULTRA TEST) Strp Use as directed. USE INSTRUCTED TO CHECK BLOOD GLUCOSE 4 TIMES DAILY IN EVENT OF CGM FAILURE Active insulin aspart (NOVOLOG) 100 unit/mL injection for INSULIN PUMP by Subcutaneous Pump route every 72 hours. FOR USE IN INSULIN PUMP TO MAX DAILY DOSE 100 04/06/20 21 Active NIFEdipine (ADALAT CC) 30 MG 24 hr tablet 10/17/19 24 Active RENVELA 800 mg tablet TAKE 1 TABLET BY MOUTH THREE TIMES A DAY WITH MEALS AND 1 TABLET WITH SNACKS 09/05/19 24 Active traZODone (DESYREL) 50 MG tablet TAKE 1 TABLET BY MOUTH ONCE DAILY AT NIGHT AT BEDTIME 08/11/19 24 Active Active Problems Problem Noted Date Diagnosed Date Pre-transplant evaluation for kidney transplant 10/20/2023 Diabetes mellitus 10/20/2023 Hypertension 10/20/2023 ESRD (end stage renal disease) on dialysis 10/12 History of bariatric surgery 02/15/2023 Overview (10/20/2023): Patient underwent sleeve gastrectomy in December 2019 with max weight of 398 pounds. She is currently 157 pounds. 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 Anemia 12/12/2018 Overview (10/20/2023): Anemia of chronic disease due to end-stage renal disease. Receiving Epogen and iron as indicated per nephrology Depression 12/30/2015 HLD (hyperlipidemia) 12/30/2015 Family History Relation Status Comments Father Alive Mother Alive Social History Tobacco Use Types Packs/Day Years [...] on file Sexual Orientation Not on file Last Filed Vital Signs Vital Sign Reading Time Taken Comments Blood Pressure - - Pulse - - Temperature - - Respiratory Rate - - Oxygen Saturation - - Inhaled Oxygen Concentration - - Weight 74.8 kg (165 lb) 09/06/2023 7:00 AM EST Height 162 cm (5' 3.78 ) 09/06/2023 7:00 AM EST Body Mass Index 28.52 09/06/2023 7:00 AM EST Plan of Treatment Health Maintenance Due Date Last Done Comments Depression Monitoring (PHQ-9) 1989 Hepatitis C Screening (MyChart) 1989 Lipid Panel 1989 Renal Function/GFR 1989 Tobacco Cessation Readiness 1989 HIV Screening 2007 Immunization: Hepatitis B (1 of 3 - Risk Dialysis 4-dose series) 2009 Cervical Cancer Screening/Pa p Smear (MyChart) 2019 Immunization: Pneumococcal ( 2 of 2 - PCV) 12/22/2019 12/21/2018 Diabetic Eye Exam (MyChart) 10/20/2023 Hemoglobin A1C Monitoring (MyChart) 10/20/2023 Immunization: COVID-19 ( season) 2024 Immunization: Influenza (MyC stinson) (#1) 2024 04/13/2023, 04/07/2021, 04/22/2020, Additional history exists Immunization: DTaP/Tdap/Td ( 2 - Td or Tdap) 09/28/2033 09/29/2023 Insurance [facility] care Address: [facility] [id number] [place] [phone]
--- OUTSIDE RECORDS SUMMARY | 2024-05-30 08:29 | XMS_ITS | Encounter Summary ---
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 [id number] Health Encounter Details Date Type Department Care Team (Late st Contact Info) Description 11/21/2023 Telephone [facility] Kidney Transplant at [address], [address] [place] [address] Bernardo White MA Social History [...] Progress Notes * Bernardo White MA - 11/21/2023 12:23 PM EDT PT contacted for appt reminder. PT asked this MA to be RS as she is not yet ready to come to appt. Still getting paperwork situated for TXP. This MA moved PT to December [facility] OR clinic. RN notified documented in this encounter Plan of Treatment Not on file documented as of this encounter Visit Diagnoses Not on filedocumented in this encounter
--- OUTSIDE RECORDS SUMMARY | 2024-05-30 08:30 | XMS_ITS | Encounter Summary ---
Author Organization [email or web address] Address [address] [place] [address] Care Team Providers Care Kitchen Assistant Name Role Phone Unavailable Primary Care Provider Unavailabl e Reason for Visit * Reason Comments Catheter problem Encounter Details Date Type Department Care Team (Late st Contact Info) Description 05/21/2023 9:49 PM EDT - 05/21/2023 11:44 PM EDT Emergency [facility] [address] [place] [address] [place]car [place] [address] [address]itoneal dialysis catheter in place (HCC) (Primary Dx) Discharge Disposition: Home or Self Care Social History Tobacco Use Types Packs/Day Years Used Date Smoking Tobacco: Former Cigarettes Q uit: 04/17/2022 Smokeless Tobacco: Never Alcohol Use Standard Drinks/Week Comments Not Currently 0 (1 standard drink = 0.6 oz pur e alcohol) Comments Unknown Sex and Gender Information Value Date Recorded Sex Assigned at Female 01/12/2022 7:15 PM CDT Legal Sex Female 7:15 PM CDT Gender Identity Female 01/12/2022 7:15 PM CDT Sexual Orientation Not on file documented as of this encounter Last Filed Vital Signs Vital Sign Reading Time Taken Comments Blood Pressure 146/64 05/21/2023 9:46 PM EDT Pulse 77 05/21/2023 9:46 PM EDT Temperature 36.8 ??C (98.3 ??F) 05/21/2023 9:46 PM ED T Respiratory Rate 18 05/21/2023 9:46 PM EDT Oxygen Saturation 99% 05/21/2023 9:46 PM EDT Inhaled Oxygen Concentration - - Weight 70.8 kg (156 lb) 05/21/2023 9:46 PM EDT Height 162.6 cm (5' 4 ) 05/21/2023 9:46 PM EDT Body Mass Index 26.78 05/21/2023 9:46 PM EDT documented in this encounter Discharge Instructions * Discharge Instructions* Мария Treadwell PA-C - 05/21/2023 11:12 PM EDT Please follow-up with your primary care provider and home hospice rn. Please return to ER for new or worsening symptoms. documented in this encounter Medications at Time of Discharge atorvastatin (LIPITOR) 40 MG tablet Take 40 mg by mouth daily. calcitrioL (ROCALTROL) 0.5 MCG capsule Take 0.5 mcg by mouth daily. calcium acetate 667 mg Tab Take by mouth. carvediloL (COREG) 25 MG tablet Take 25 mg by mouth 2 (two) times daily with breakfast and dinner. insulin aspart U-100 (NovoLOG) 100 unit/mL (3 mL) InPn Inject subcutaneously 3 (three) times daily before meals. loratadine (CLARITIN) 10 mg tablet Take 10 mg by mouth daily. NIFEdipine (ADALAT CC) 60 MG 24 hr tablet Take 60 mg by mouth daily. sodium bicarbonate 650 MG tablet Take 1 tablet by mouth 4 (four) times daily. documented as of this encounter ED Notes * Amilcar Porter MD - 05/21/2023 10:00 PM EDT Patient is a 32-year-old female presented with bloody dialysis this morning. Patient is getting herusual treatments about 8 hours a day and this morning she noticed dark red blood in the tubing. Shehad no other symptoms she has no history of trauma she was moving some furniture recently. She is completely asymptomatic at this time. The blood in the tubing seems to predominantly cleared. Physical exam showed an alert white female no acute distress her abdomen is soft and nontender there was some blood-tinged fluid but not tom blood in the tubing. Given she was released in stable condition she was medicated for slightly elevated potassium she advised to begin dialyzing again tomorrow and return if bleeding worsens otherwise she is to follow-up on Tuesday Amilcar Porter MD 05/21/23 [id number] * Мария Treadwell PA-C - 05/21/2023 9:50 PM EDT Subjective Chief Complaint: Catheter problem HPI Patient is a 32-year-old female with a history of chronic kidney disease presenting today for bloodin her peritoneal dialysis catheter tubing. She states that she was treating herself at home around8 PM tonight when she noticed there was about 4 feet of blood within the tubing. She denies any fevers, shortness of breath, chest pain, dysuria, being on her menstrual cycle. She does endorse some suprapubic tenderness. Patient History Past 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: Diagnosis Date ??? Allergies ??? Anemia ??? CKD (chronic kidney disease) ??? Diabetes (HCC) ??? Hyperkalemia ??? Hyperlipidemia ??? Hyperparathyroidism (HCC) ??? Hypertension Past Surgical History: Procedure Laterality Date ??? BIOPSY,KIDNEY ??? SECTION ??? GASTRIC BYPASS ??? LAPAROSCOPY,INSERT PERITONEAL CATHETER N/A 09/23/2022 Procedure: LAPAROSCOPIC PD CATHETER PLACEMENT),; Surgeon: Cb Renee MD; Location: [facility]; Service: General Surgery; Laterality: N/A; IN 0630 , 1 HR (R) ??? TUBAL LIGATION Family History Problem Relation Age of Onset ??? Alcohol abuse Mother ??? Bipolar disorder Mother ??? Depression Mother ??? Diabetes Mother ??? Hypertension Mother ??? Hyperlipidemia Mother ??? Stroke Mother ??? Alcohol abuse Father ??? Bipolar disorder Father ??? Depression Father ??? Hypertension Father ??? Hyperlipidemia Father ??? Bipolar disorder Maternal Grandmother ??? Depression Maternal Grandmother ??? Cancer Maternal Grandmother Social History Tobacco Use ??? Smoking status: Former Types: Cigarettes Quit date: 04/17/2022 Years since quittin.0 ??? Smokeless tobacco: Never Substance Use Topics ??? Alcohol use: Not Currently I reviewed the HPI, ROS and PFSH documentation recorded by others in the medical record and supplemented my note as needed. Review of Systems Review of Systems Physical Exam ED Triage Vitals [05/21/232145] Enc Vitals Group BP (!) 146/64 Pulse 77 Resp 18 Temp 98.3 ??F (36.8 ??C) Temp src Oral SpO2 99 % Weight 70.8 kg (156 lb) Height 1.626 m (5' 4 ) Head Circumference Peak Flow Pain Score Pain Loc Pain Edu? Excl. in GC? Physical Exam Constitutional: Appearance: Normal appearance. HENT: Head: Normocephalic and atraumatic. Eyes: Extraocular Movements: Extraocular movements intact. Pupils: Pupils are equal, round, and reactive to light. Cardiovascular: Rate and Rhythm: Normal rate. Pulmonary: Effort: Pulmonary effort is normal. Abdominal: General: Abdomen is flat. Palpations: Abdomen is soft. Tenderness: There is abdominal tenderness (suprapubic). Skin: General: Skin is warm and dry. Findings: No erythema or rash. Neurological: General: No focal deficit present. Mental Status: She is alert and oriented to person, place, and time. Neurologic Exam Mental Status Oriented to person, place, and time. Cranial Nerves CN III, IV, Pupils are equal, round, and reactive to light. Ortho Exam ED Course & MDM Medications sodium polystyrene (KAYEXALATE) 15 g susp for Oral or Rectal use 60 mL (15 g Oral Given 05/21/23 7955) Results for orders placed or performed during the hospital encounter of 05/21/23 CBC with Auto Diff Result Value Ref Range WBC 6.3 3.9 - 10.0 K/??L RBC 2.86 (L) 3.93 - 6.08 M/??L Hemoglobin 9.1 (L) 11.2 - 15.7 GM/DL Hematocrit 27.7 (L) 34.1 - 44.9 % MCV 97 (H) 79 - 95 fL MCH 31.8 25.6 - 32.2 pg MCHC 32.9 32.2 - 36.5 GM/DL RDW 12.2 11.6 - 14.4 % Platelets 122 (L) 163 - 369 K/CU MM MPV 12.2 9.4 - 12.4 fL % Neutros 50 34 - 71 % % Lymphs 39 19 - 53 % % Monos 6 4 - 13 % % Eos 4 1 - 7 % % Baso 1 0 - 1 % # Neutros 3.18 1.56 - 6.13 K/??L # Lymphs 2.46 1.18 - 3.74 K/??L # Monos 0.39 0.24 - 0.82 K/??L # Eos 0.23 0.04 - 0.54 K/??L # Baso 0.03 0.01 - 0.08 K/??L Immature Granulocytes-Relative 0.20 0.00 - 0.60 % # IG 0.01 0.00 - 0.05 K/uL Basic Metabolic Panel Result Value Ref Range Sodium 141 136 - 146 meq/L Potassium 5.5 (H) 3.5 - 5.1 meq/L Chloride 113 (H) 102 - 112 meq/L CO2 22 21 - 32 meq/L Anion Gap 12 9 - 20 BUN 67 (H) 7 - 22 mg/dL Creatinine 8.24 (HH) 0.55 - 1.02 mg/dL BUN/Creatinine 8 8 - 20 Glucose 205 (H) 74 - 106 mg/dL Calcium 9.0 8.5 - 10.1 mg/dL Osmolality Calc 306.6 eGFR (mL/min/1.73m2) 6 (L) >=60 mL/min/1.73m2 Magnesium Result Value Ref Range Magnesium 1.7 1.5 - 2.4 mg/dL Urinalysis, Reflex Microscopic and Culture If Indicated Result Value Ref Range Color, UA Colorless Clarity, UA Clear Clear Specific [place], UA 1.008 1.005 - 1.030 pH, UA 7.0 6.0 - 8.0 Leukocytes, UA Negative Negative Nitrite, UA Negative Negative Protein, UA Trace (A) Negative Glucose, UA Trace (A) Normal Ketones, UA Negative Negative Bilirubin, UA Negative Negative Blood, UA Negative Negative Urobilinogen, UA Normal Normal Specimen Source Urine, Clean Catch Urinalysis Microscopic Only Result Value Ref Range WBC, UA 0-2 (A) None Seen /HPF RBC, UA 0-2 (A) None Seen /HPF Bacteria, UA None Seen Trace, None Seen SQUAMOUS EPITHELIAL 3-5 (A) None Seen /HPF CT ABDOMEN/PELVIS WITHOUT IV CONTRAST Final Result No acute process. Peritoneal dialysis catheter tip terminates adjacent to multiple unremarkable appearing small bowel loops in the right pelvis.. Images reviewed, interpreted and report dictated by Thad Gomez M.D. Procedures MDM Patient is a 32-year-old female with a history of chronic kidney disease presenting today for bloodin her peritoneal dialysis catheter tubing. She states that she was treating herself at home around8 PM tonight when she noticed there was about 4 feet of blood within the tubing. She denies any fevers, shortness of breath, chest pain, dysuria, being on her menstrual cycle. She does endorse some suprapubic tenderness. Differentials: Infection, displacement, trauma Upon physical exam patient is pleasant and sitting comfortably in bed. She is in no acute distress and is hemodynamically stable. She does not have any erythema surrounding the catheter site. She does have some blood noted in the tubing. She has some mild suprapubic tenderness. Dr. porter examined the patient as well and assisted with this case. Workup: Urinalysis: no UTI CBC: non-actionable BMP: severe kidney dysfunction, potassium 5.5 Magnesium: unremarkable CT abdomen pelvis without contrast: No acute process Kayexalate ordered for potassium of 5.5 Discussed with patient that everything on her labs and CT scan result today would not warrant further management from an ER standpoint at this time. We advised her to return home and follow-up with her primary care provider as well as the home hospice rn managing her kidney dysfunction. We advised herto return to ER for any new or worsening symptoms. Assessment & Plan Clinical Impression Diagnosis Comment Added By Time Added Peritoneal dialysis catheter in place (HCC) Мария Treadwell PA-C 05/21/2023 11:12 PM Disposition Discharge [1] - 05/21/2023 11:11 PM New Prescriptions No medications on file Electronically Signed By Мария Treadwell PA-C 05/21/23 2306 Cosigned by Amilcar Porter MD at 05/22/2023 7:14 PM EST [facility] * Rae Land RN - 05/21/2023 9:46 PM EDT Pt reports blood in her PD catheter. documented in this encounter Plan of Treatment Not on file documented as of this encounter Procedures Procedure Name Priority Date/Time Associated Diagnosis Comments CT ABDOMEN/PELVIS WITHOUT IV CONTRAST STAT 05/21/2023 10:45 PM EDT URINALYSIS, REFLEX MICROSCOPIC AND CULTURE IF INDICATED STAT 05/21/2023 10:35 PM EDT URINALYSIS MICROSCOPIC STAT 05/21/2023 10:35 PM EDT CBC W/ AUTO DIFF STAT 05/21/2023 10:1 4 PM EDT MAGNESIUM STAT 05/21/2023 10:14 PM EDT BASIC METABOLIC PANEL STAT 05/21/2023 10:14 PM EDT documented in this encounter Results * CT ABDOMEN/PELVIS WITHOUT IV CONTRAST (05/21/2023 10:45 PM EDT) Anatomical Region Laterality Modality Abdomen, Pelvis Computed Tomogra phy (CT) 05/21/2023 10:5 2 PM EDT Impressions 05/21/2023 10:59 PM EDT No acute process. Peritoneal dialysis catheter tip terminates adjacent to multiple unremarkable appearing small bowel loops in the right pelvis.. Images reviewed, interpreted and report dictated by Thad Gomez M.D. Narrative 05/21/2023 10:[address] SCAN OF THE ABDOMEN AND PELVIS WITHOUT CONTRAST ?05/21/2023 10:39 PM HISTORY: Blood in peritoneal dialysis catheter.. COMPARISON: CT abdomen pelvis from January 2020. PROCEDURE: The patient was injected without IV contrast. Oral contrast was administered. Axial images were obtained from the lung bases to the pubic symphysis by computed tomography. This study was performed with techniques to keep radiation doses as low as reasonably achievable, (ALARA). Individualized dose reduction techniques using automated exposure control or adjustment of mA and/or kV according to the patient size were employed. FINDINGS: ABDOMEN: The lung bases are clear. The heart is proper size. Post surgical changes to the stomach are again noted. No gross evidence of acute complication. The liver, spleen, pancreas appear unremarkable and demonstrate no non-contrast evidence of a focal lesion. ??No adrenal mass or nodule is evident. Mild bilateral renal atrophy, with significant atherosclerotic changes seen in the renal arteries. . There is no hydronephrosis, no renal calculi, and no non-contrast evidence of a solid intrarenal mass. ??The aorta and major branch vessels are normal in caliber. There is no free fluid or adenopathy. No dilated loops of bowel. No free intraperitoneal air. No significant stranding seen in the mesentery. PELVIS: The appendix is normal . The urinary bladder is unremarkable. There is no significant free fluid or adenopathy. Genital organs appear unremarkable for patient's age. ??No acute osseous changes. Peritoneal dialysis catheter noted in place, tip is seen adjacent to multiple unremarkable appearing small bowel loops. Procedure Note Janak Gomez MD - 05/21/2023 CT SCAN OF THE ABDOMEN AND PELVIS WITHOUT CONTRAST 05/21/2023 10:39 PM HISTORY: Blood in peritoneal dialysis catheter.. COMPARISON: CT abdomen pelvis from January 2020. PROCEDURE: The patient was injected without IV contrast. Oral contrast was administered. Axial images were obtained from the lung bases to the pubic symphysis by computed tomography. This study was performed with techniques to keep radiation doses as low as reasonably achievable, (ALARA). Individualized dose reduction techniques using automated exposure control or adjustment of mA and/or kV according to the patient size were employed. FINDINGS: ABDOMEN: The lung bases are clear. The heart is proper size. Post surgical changes to the stomach are again noted. No gross evidence of acute complication. The liver, spleen, pancreas appear unremarkable and demonstrate no non-contrast evidence of a focal lesion. No adrenal mass or nodule is evident. Mild bilateral renal atrophy, with significant atherosclerotic changes seen in the renal arteries. . There is no hydronephrosis, no renal calculi, and no non-contrast evidence of a solid intrarenal mass. The aorta and major branch vessels are normal in caliber. There is no free fluid or adenopathy. No dilated loops of bowel. No free intraperitoneal air. No significant stranding seen in the mesentery. PELVIS: The appendix is normal . The urinary bladder is unremarkable. There is no significant free fluid or adenopathy. Genital organs appear unremarkable for patient's age. No acute osseous changes. Peritoneal dialysis catheter noted in place, tip is seen adjacent to multiple unremarkable appearing small bowel loops. IMPRESSION: No acute process. Peritoneal dialysis catheter tip terminates adjacent to multiple unremarkable appearing small bowel loops in the right pelvis.. Images reviewed, interpreted and report dictated by Thad Gomez M.D. us Мария Treadwell PA-C IMG CT ORDERABLES Final Resul t * (ABNORMAL) Urinalysis Microscopic Only (05/21/2023 10:35 PM EDT) WBC, UA 0-2(A) None Seen /HPF 05/21/2023 10:50 PM EDT [facility] RBC, UA 0-2(A) None Seen /HPF 05/21/2023 10:50 PM EDT [facility] Bacteria, UA None Seen Trace, None Seen 05/21/2023 10:50 PM EDT [facility] SQUAMOUS EPITHELIAL 3-5(A) None Seen /HPF 05/21/2023 10:50 PM EDT [facility] Urine URINE SPECIMEN COLLECTION, CLEAN CATCH / Unknown 05/21/2023 10:35 PM EDT 05/21/2023 10:35 PM EDT us Мария Treadwell PA-C URINE ORDERABLES Final Result [facility] [address] [place] [address] [phone] * (ABNORMAL) Urinalysis, Reflex Microscopic and Culture If Indicated (05/21/2023 10:35 PM EDT) Color, UA Colorless 05/21/2023 10:50 PM EDT [facility] Clarity, UA Clear Clear 05/21/2023 10:50 PM EDT [facility] Specific [place], UA 1.008 1.005 - 1.030 05/21/2023 10:50 PM EDT [facility] pH, UA 7.0 6.0 - 8.0 05/21/2023 10:50 PM EDT [facility] Leukocytes, UA Negative Negative 05/21/2023 10:50 PM EDT [facility] Nitrite, UA Negative Negative 05/21/2023 10:50 PM EDT [facility] Protein, UA Trace(A) Negative 05/21/2023 10:50 PM EDT [facility] Glucose, UA Trace(A) Normal 05/21/2023 10:50 PM EDT [facility] Ketones, UA Negative Negative 05/21/2023 10:50 PM EDT [facility] Bilirubin, UA Negative Negative 05/21/2023 10:50 PM EDT [facility] Blood, UA Negative Negative 05/21/2023 10:50 PM EDT [facility] Urobilinogen, UA Normal Normal 05/21/2023 10:50 PM EDT [facility] Specimen Source Urine, Clean Catch 05/21/2023 10:50 PM EDT [facility] Urine URINE SPECIMEN COLLECTION, CLEAN CATCH / Unknown 05/21/2023 10:35 PM EDT 05/21/2023 10:35 PM EDT Мария Treadwell PA-C URINE ORDERABLES Final Result [facility] [address] [phone] * Magnesium (05/21/2023 10:14 PM EDT) Magnesium 1.7 1.5 - 2.4 mg/dL 05/21/2023 10:38 PM EDT [facility] Blood Venipuncture / Unknown 05/21/2023 10:14 PM EDT 05/21/2023 10:14 PM EDT us Мария Treadwell PA-C LAB BLOOD ORDERABLES Final Re sult [facility] [address] [place] [address], [facility] [phone] * (ABNORMAL) Basic Metabolic Panel (05/21/2023 10:14 PM EDT) Sodium 141 136 - 146 meq/L 05/21/2023 10:39 PM EDT [facility] Potassium 5.5(H) 3.5 - 5.1 meq/L 05/21/2023 10:39 PM EDT [facility] Chloride 113(H) 102 - 112 meq/L 05/21/2023 10:39 PM EDT [facility] CO2 22 21 - 32 meq/L 05/21/2023 10:39 PM EDT [facility] Anion Gap 12 9 - 20 05/21/2023 10:39 PM EDT [facility] BUN 67(H) 7 - 22 mg/dL 05/21/2023 10:39 PM EDT [facility] Creatinine 8.24(HH) 0.55 - 1.02 mg/dL 05/21/2023 10:39 PM EDT [facility] BUN/Creatinine 8 8 - 20 05/21/2023 10:39 PM EDT [facility] Glucose 205(H) 74 - 106 mg/dL 05/21/2023 10:39 PM EDT [facility] Calcium 9.0 8.5 - 10.1 mg/dL 05/21/2023 10:39 PM EDT [facility] Osmolality Calc 306.6 10:39 PM EDT [facility] eGFR (mL/min/1.73m2) 6(L) >=60 mL/min/1.7 3m2 05/21/2023 10:39 PM EDT [facility] Comment:eGFR of <60 suggests chronic kidney disease if found over a 3 month period of time. eGFR <15 indicates renal failure. Blood Venipuncture / Unknown 05/21/2023 10:14 PM EDT 05/21/2023 10:14 PM EDT us Мария Treadwell PA-C LAB BLOOD ORDERABLES Final Re sult [facility] [address] [place] [address], [facility] [phone] * (ABNORMAL) CBC with Auto Diff (05/21/2023 10:14 PM EDT) WBC 6.3 3.9 - 10.0 K/??L 05/21/2023 10:18 PM EDT [facility] RBC 2.86(L) 3.93 - 6.08 M/??L 05/21/2023 10:18 PM EDT [facility] Hemoglobin 9.1(L) 11.2 - 15.7 GM/DL 05/21/2023 10:18 PM EDT [facility] Hematocrit 27.7(L) 34.1 - 44.9 % 05/21/2023 10:18 PM EDT [facility] MCV 97(H) 79 - 95 fL 05/21/2023 10:18 PM EDT [facility] MCH 31.8 25.6 - 32.2 pg 05/21/2023 10:18 PM EDT [facility] MCHC 32.9 32.2 - 36.5 GM/DL 05/21/2023 10:18 PM EDT [facility] RDW 12.2 11.6 - 14.4 % 05/21/2023 10:18 PM EDT [facility] Platelets 122(L) 163 - 369 K/CU MM 05/21/2023 10:18 PM EDT [facility] MPV 12.2 9.4 - 12.4 fL 05/21/2023 10:18 PM EDT [facility] % Neutros 50 34 - 71 % 05/21/2023 10:18 PM EDT [facility] % Lymphs 39 19 - 53 % 05/21/2023 10:18 PM EDT [facility] % Monos 6 4 - 13 % 05/21/2023 10:18 PM EDT [facility] % Eos 4 1 - 7 % 05/21/2023 10:18 PM EDT [facility] % Baso 1 0 - 1 % 05/21/2023 10:18 PM EDT [facility] # Neutros 3.18 1.56 - 6.13 K/??L 05/21/2023 10:18 PM EDT [facility] # Lymphs 2.46 1.18 - 3.74 K/??L 05/21/2023 10:18 PM EDT [facility] # Monos 0.39 0.24 - 0.82 K/??L 05/21/2023 10:18 PM EDT [facility] # Eos 0.23 0.04 - 0.54 K/??L 05/21/2023 10:18 PM EDT [facility] # Baso 0.03 0.01 - 0.08 K/??L 05/21/2023 10:18 PM EDT [facility] Immature Granulocytes-Re lative 0.20 0.00 - 0.60 % 05/21/2023 10:18 PM EDT [facility] # IG 0.01 0.00 - 0.05 K/uL 05/21/2023 10:18 PM EDT [facility] Blood Venipuncture / Unknown 05/21/2023 10:14 PM EDT 05/21/2023 10:14 PM EDT Narrative [facility] - 05/21/2023 10:18 PM EDT When CBC w/ Auto Diff is ordered the lab will add a Manual Differential as a quality check at no additional charge if: Lymphocytes greater than seventy five percent with normal or increased WBC Monocytes greater than Fifteen percent Basophil greater than four percent Bands >10% or several immature myeloids are seen on scan Blast? Flag noted Atypical Lymph flag noted us Мария Treadwell PA-C LAB BLOOD ORDERABLES Final Re sult [facility] [address] [facility] [address] [phone] documented in this encounter Visit Diagnoses Diagnosis Peritoneal dialysis catheter in place (HCC)- Primary documented in this encounter Administered Medications Inactive Administered Medications - up to 3 most recent administrations Medication Order MAR Action Action Date Dose Rate Site sodium polystyrene (KAYEXALATE) 15 g susp for Oral or Rectal use 60 mL 15 g Once, oral, On 05/21/23 at 2245, For 1 dose, If given orally, then hold oral medications 6 hours after administering. To reduce the likelihood of decreased absorption and effectiveness of orally administered medications, do not administer sodium polystyrene sulfonate within 3 hours of other oral medications. Given 05/21/2023 11:03 PM EDT 15 g documented in this encounter Active and Recently Administered Medications Times are shown in EDT. Scheduled Medication Order 05/19/2023 05/20/2023 05/21/2023 sodium polystyrene (KAYEXALATE) 15 g susp for Oral or Rectal use 60 mL (COMPLETED) 15 g Once, oral, On 05/21/23 at 2245, For 1 dose, If given orally, then hold oral medications 6 hours after administering. To reduce the likelihood of decreased absorption and effectiveness of orally administered medications, do not administer sodium polystyrene sulfonate within 3 hours of other oral medications. 2303 (Given - Provid er: Annmarie Paul RN) documented in this encounter
--- OUTSIDE RECORDS SUMMARY | 2024-05-30 08:30 | XMS_ITS | Clinical Summary ---
Author Organization [employer] Address [address] [place] [address] Care Team Providers Care Due Diligence Coordinator Name Role Phone Unavailable Primary Care Provider Unavailabl e Allergies Active Allergy Reactions Criticality Noted Date Comments Nsaids (Non-Steroidal Anti-I nflammatory Drug) 09/13/2022 Medications NIFEdipine (ADALAT CC) 60 MG 24 hr tablet Take 60 mg by mouth daily. Active calcium acetate 667 mg Tab Take by mouth. Acti ve atorvastatin (LIPITOR) 40 MG tablet Take 40 mg by mouth daily. Active carvediloL (COREG) 25 MG tablet Take 25 mg by mouth 2 (two) times daily with breakfast and dinner. Active calcitrioL (ROCALTROL) 0.5 MCG capsule Take 0.5 mcg by mouth daily. Active loratadine (CLARITIN) 10 mg tablet Take 10 mg by mouth daily. Active insulin aspart U-100 (NovoLOG) 100 unit/mL (3 mL) InPn Inject subcutaneously 3 (three) times daily before meals. Active sodium bicarbonate 650 MG tablet Take 1 tablet by mouth 4 (four) times daily. Active Active Problems No known active problems Family History 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 Relation Name Comments Alcohol abuse Father Bipolar disorder Father Depression Father Hyperlipidemia Father Hypertension Father Bipolar disorder Maternal Grandmother Cancer Maternal Grandmother Depression Maternal Grandmother Alcohol abuse Mother Bipolar disorder Mother Depression Mother Diabetes Mother Hyperlipidemia Mother Hypertension Mother Stroke Mother Relation Name Status Comments Father Maternal Grandmother Mother Social History Tobacco Use Types Packs/Day Years Used Date Smoking Tobacco: Former Cigarettes Q uit: 04/17/2022 Smokeless Tobacco: Never Alcohol Use Standard Drinks/Week Comments Not Currently 0 (1 standard drink = 0.6 oz pur e alcohol) Interpersonal Safety Answer Date Record ed Family or friends hurt you Not on file 07/30 Family or friends insult you Not on file Family or friends threaten you Not on file 0 07/30/2023 Family or friends scream or curse at you Not on file 07/30/2023 Housing Stability Answer Date Recorded Living situation today Not on file Living situation problems Not on file 2023 Food Insecurity Answer Date Recorded Food run out past 12 months Not on file 07/18 Food did not last past 12 months Not on file 07/30/2023 Employment Answer Date Recorded Help finding and keeping a job Not on file 0 07/30/2023 Family and Community Support Answer Chucho e Recorded Help with Day to Day Activities Not on file 07/30/2023 Feeling Lonely or Isolated Not on file 07/30 Educational Attainment Answer Date Blaine rded Speak language other than Romanian at home Not on file 07/30/2023 Want help with school or training Not on file 07/30/2023 Depression Answer Date Recorded PHQ-2 Risk Not on file 07/30/2023 Disabilities Answer Date Recorded Difficulty concentrating Not on file 024 Difficulty doing errands alone Not on file 0 07/30/2023 Substance Use Answer Date Recorded Used prescription meds for non-medical reasons N ot on file 07/30/2023 Used illegal drugs past 12 months Not on file 07/30/2023 Comments Unknown Sex and Gender Information Value Date Recorded Sex Assigned at Female 01/12/2022 7:15 PM CDT Legal Sex Female 7:15 PM CDT Gender Identity Female 01/12/2022 7:15 PM CDT Sexual Orientation Not on file Last Filed [...] Mass Index 26.78 05/21/2023 9:46 PM EDT Plan of Treatment Health Maintenance Due Date Last Done Comments Depression Screening (12+) 2001 HIV Screening 2004 Hepatitis C Screening 2007 Pap Smear 2010 COVID-19 VACCINE ( - 2023-2 5 season) 2024 Influenza Vaccine (#1) 2024 9, 04/06/2018, 04/05/2012, Additional history exists Tobacco Cessation Counseling and Screening (12+) 05/21/2024 05/21/2023 DTAP/TDAP/TD VACCINES (2 - T d or Tdap) 02/16/2028 02/15/2018 Insurance [facility] [address] Advance Directives For more information, please contact: [phone] * Full Code (Latest Code Status on File) Date Activated Date Inactivated Comments 09/23/2022 6:27 AM 09/23/2022 11:31 AM
--- OUTSIDE RECORDS SUMMARY | 2024-05-30 08:30 | XMS_ITS | Encounter Summary ---
Author Organization [facility] Address [address] [place] [address] Care Team Providers Care Lens Fabricating Machine Tender Name Role Phone Unavailable Primary Care Provider [...] release of HIV test results or diagnoses. [id number] Health Encounter Details Date Type Department Care Team (Late st Contact Info) Description 09/08/2023 Chart Note [facility] Kidney Transplant at [address], [address] [place] [id number] Salomón Small Transplant Eval Authorization Social History Tobacco Use Types Packs/Day Years Used Date Smoking Tobacco: Never Assessed Comments Unknown Sex and Gender Information Value Date Recorded Sex Assigned at Not on file Legal Sex Female 8:52 AM EST Gender Identity Not on file Sexual Orientation Not on file documented as of this encounter Progress Notes * Salomón Small - 09/08/2023 8:18 AM EST Transplant Eval Authorization Organ:kidney Insurance Co:Stepan TREVINO [facility] Clinical Aide: Phone: Fax: Auth#:[id number] Travel/Lodging:n Dates of Service:09/07/23 to 03/05/24 Additional Info: Evaluation for Patient/donor can be done Cleared for eval Test at [facility] documented in this encounter Plan of Treatment Not on file documented as of this encounter Visit Diagnoses Not on filedocumented in this encounter
--- OUTSIDE RECORDS SUMMARY | 2024-05-30 08:30 | XMS_ITS | Encounter Summary ---
Author Organization [facility] Address [address] [place] [address] Care Team Providers Care A And P Technician Name Role Phone Unavailable Primary Care Provider [...] release of HIV test results or diagnoses. [id number] Health Encounter Details Date Type Department Care Team (Late st Contact Info) Description 09/06/2023 Telephone [facility] Kidney Transplant at [address], [address] [place] [address] Bernardo White MA Social History Tobacco Use Types Packs/Day Years Used Date Smoking Tobacco: Never Assessed Comments Unknown Sex and Gender Information Value Date Recorded Sex Assigned at Not on file Legal Sex Female 8:52 AM EST Gender Identity Not on file Sexual Orientation Not on file documented as of this encounter Progress Notes * Bernardo White MA - 09/06/2023 9:24 AM EST This FEDERICO sent referring office an [employer] fax to inform of referral acceptance.This FEDERICO scanned into media tab [id number]. documented in this encounter Plan of Treatment Not on file documented as of this encounter Visit Diagnoses Not on filedocumented in this encounter
--- OUTSIDE RECORDS SUMMARY | 2024-05-30 08:30 | XMS_ITS | Referral Summary ---
Author Organization [employer] Address [address] [place] [address] Care Team Providers Care Barbecue Cook Name Role Phone Unavailable Primary Care Provider [...] Active Active Problems No known active problems Social History Tobacco Use Types Packs/Day Years [...] Date Blaine rded Speak language other than Swiss at home Not on file 07/30/2023 Want [...] 05/21/2023 9:46 PM EDT Plan of Treatment Not on file Insurance [facility] Advance Directives For more information, please contact: [phone] * Full Code (Latest Code Status on File) Date Activated Date Inactivated Comments 09/23/2022 6:27 AM 09/23/2022 11:31 AM
--- OUTSIDE RECORDS SUMMARY | 2024-05-30 08:30 | XMS_ITS ---
Author Name [facility] Address [address] [place] [address] Phone [phone] Organization [facility] e, NA DOCUMENT DISCLAIMER Multiple document versions may exist, please be sure you review the latest version. The information in the [facility] Continuity of Care Document represents a summary of certain health and medical information. It may not contain the complete medical history for the patient and should be independently verified. The represented time in the document is Eastern Time. PROBLEMS No Known Problems ALLERGIES AND ADVERSE REACTIONS No Known Allergies SOCIAL HISTORY Tobacco Use Status Tobacco Type Unknown if ever consumed tobacco - Caregiver Characteristics No Information Available Characteristics of Home environment No Information Available MEDICATIONS Home Medications Medication Instructions Dosage Route Start Date End Date Stat us atorvastatin 40 mg Take by mouth once a day 1 tablet ORAL November 09, 2022 Active calcitriol 0.5 mcg Take by mouth once a day 2 capsule ORAL November 24, 2023 Active carvedilol 25 mg Take by mouth twice a day 1 tablet ORAL April 21, 2023 Active Claritin 10 mg Take by mouth once a day 1 tablet ORAL November 09, 2022 Active Colace 100 mg Take by mouth once a day as needed 1 capsule ORAL August 24, 2023 Active lactulose 10 gram/15 mL Take once a day as needed 30 ml ORAL June 15, 2023 Active lisinopril 10 mg Take at bedtime 1 tablet ORAL January 03, 2023 Active nifedipine 30 mg Take by mouth once a day 1 tablet ORAL October 17, 2023 Active Renvela 800 mg Take by mouth three times a day with meals 2 tablet ORAL August 30, 2023 Active VITAL SIGNS Other Other Value Date / Time Height 165 cm December 14, 2022 12: 00 AM HEALTH CONCERNS Tuberculosis Testing TST Date Administered TST Date Read TST Result 11/08/2022 11/10/2022 Negative (<5) mm LAB RESULTS Hematology Result Type Result Value Relevant Reference Range Interpre tation Date Folate, Serum 6.1 ng/mL No Reference Ran ge Provided - July 21, 2023 Bone/Mineral Result Type Result Value Relevant Referen ce Range Interpretation Date Magnesium 2.0 mg/dL 1.6 - 2.6 mg/dL - July Vitamin D 25 Hydroxy 44.8 ng/mL 30.0 - 100.0 ng/mL - July 21, 2023 Magnesium 2.1 mg/dL 1.6 - 2.6 mg/dL - October 21, 2023 Trace Elements Result Type Result Value Relevant Reference Range Interpre tation Date Aluminum < 5 mcg/L 0 - 10 mcg/L - July 21, 2023 Peritoneal Dialysis Testing Result Type Result Value Relevant Referen ce Range Interpretation Date D P Ratio PET 0 Hr 0.00 No Reference Range Provided - December 28, 2022 D DO Ratio PET 0 Hr 1.00 No Reference Range Provided - December 28, 2022 D P Ratio PET 4 Hr 0.51 No Reference Range Provided - December 28, 2022 D DO Ratio PET 4 Hr 0.43 No Reference Range Provided - December 28, 2022 Creatinine Transport Average Low No Referenc e Range Provided - December 28, 2022 Glucose Transport Average Low No Reference R karly Provided - December 28, 2022 Total Protein, Urine Timed 40.9 mg/dL 0.0 - 12.0 mg/dL High July 21 Total Urea Nitrogen, Urine 4.0 g/24 hr 12.0 - 20.0 g/24 hr Low July 21, 2023 Urea Clear, Urine Norm 4.4 mL/min 64.0 - 99.0 mL/min Low July 21, 024 Urea Clearance, Urine 4.5 mL/min 64.0 - 99.0 mL/min Low July 21 024 Urea Clear, Urine Norm Wkly 46 L/wk No Reference Range Provided - July 21, 2023 Creatinine, Urine 58.3 mg/dL No Reference R karly Provided - July 21, 2023 Protein, Total, Urine 24 Hr 573 mg/24 hr 30 - 150 mg/24 hr High July 21 Total Creatinine, Urine 0.8 g/24 hr 0.5 - 1.6 g/24 hr - July 21 Urea Nitrogen, PDF 24 Hr 3168.0 mg/24 hr No Reference Range Provided - July 21, 2023 PD Kt/V 24 Hr Dialysate Urea 44 mg/dL No Reference Range Provided - July 21, 2023 Urea Clearance, PD Fluid 3.6 mL/min No Reference Range Provided - July 21, 2023 Urea Clearance, PDF Norm 3.5 mL/min No Reference Range Provided - July 21, 2023 Urea Clear, Total Norm Wkly 82 L/wk No Reference Range Provided - July 21, 2023 Urea Clear, PDF Norm Wkly 36 L/wk No Reference Range Provided - July 21, 2023 Kt/V, Residual 1.31 No Reference Ran ge Provided - July 21, 2023 PNA 69 g/day No Reference Ran ge Provided - July 21, 2023 Total Protein, Urine Timed 45.6 mg/dL 0.0 - 12.0 mg/dL High October 21, 2023 Total Urea Nitrogen, Urine 5.0 g/24 hr 12.0 - 20.0 g/24 hr Low October 21, 2023 Urea Clear, Urine Norm 6.1 mL/min 64.0 - 99.0 mL/min Low October 20 Urea Clearance, Urine 6.3 mL/min 64.0 - 99.0 mL/min Low October 20 Urea Clear, Urine Norm Wkly 64 L/wk No Reference Range Provided - October 21, 2023 Creatinine, Urine 57.0 mg/dL No Reference R karly Provided - October 21, 2023 Protein, Total, Urine 24 Hr 821 mg/24 hr 30 - 150 mg/24 hr High October 21, 2023 Total Creatinine, Urine 1.0 g/24 hr 0.5 - 1.6 g/24 hr - October 21, 2023 Urea Nitrogen, PDF 24 Hr 2788.0 mg/24 hr No Reference Range Provided - October 21, 2023 PD Kt/V 24 Hr Dialysate Urea 34 mg/dL No Reference Range Provided - October 21, 2023 Urea Clearance, PD Fluid 3.5 mL/min No Reference Range Provided - October 21, 2023 Urea Clearance, PDF Norm 3.4 mL/min No Reference Range Provided - October 21, 2023 Urea Clear, Total Norm Wkly 99 L/wk No Reference Range Provided - October 21, 2023 Urea Clear, PDF Norm Wkly 35 L/wk No Reference Range Provided - October 21, 2023 Kt/V, Residual 1.83 No Reference Ran ge Provided - October 21, 2023 PNA 74 g/day No Reference Ran ge Provided - October 21, 2023 Infectious Diseases Result Type Result Value Relevant Referen ce Range Interpretation Date Hep B Surface Ab (anti-HBs) 38 mIU/mL No Reference Range Provided - July 21, 2023 Hep B Surface Ag (HBsAg) Negative No Reference Range Provided - November 18, 2023 TRANSPLANT WAITLIST STATUS No Information on Transplant Waitlist Status
--- OUTSIDE RECORDS SUMMARY | 2024-05-30 08:30 | XMS_ITS | Encounter Summary ---
Author Organization [facility] Address [address] [place] [address] Care Team Providers Care Senior Etl Developer Name Role Phone Unavailable Primary Care Provider [...] release of HIV test results or diagnoses. [id number] Health Encounter Details Date Type Department Care Team (Late st Contact Info) Description 09/06/2023 Chart Note [facility] Kidney Transplant at [address], [address] [place] [address] Bernardo White MA [facility] [address] Social History Tobacco Use Types Packs/Day Years [...] Mass Index 28.52 09/06/2023 7:00 AM EST documented in this encounter Progress Notes * Salomón Small - 09/06/2023 8:52 AM EST [place] [address] New Kidney txp referral [facility] [place] Ins On dial No medicare On [facility] list No past History here Called for txp at [facility] but missed call Sent [facility] eval auth rquest Pends response documented in this encounter Plan of Treatment Not on file documented as of this encounter Visit Diagnoses Not on filedocumented in this encounter
--- OUTSIDE RECORDS SUMMARY | 2024-05-30 08:30 | XMS_ITS | Encounter Summary ---
Author Organization [facility] Address [address] [place] [address] Care Team Providers Care Air Conditioning Supervisor Name Role Phone Unavailable Primary Care Provider [...] release of HIV test results or diagnoses. [id number] Health Encounter Details Date Type Department Care Team (Late st Contact Info) Description 09/16/[address] [facility] Kidney Transplant at [address], [address] [place] [address] Bernardo White MA Social History Tobacco Use Types Packs/Day Years Used Date Smoking Tobacco: Never Assessed Comments Unknown Sex and Gender Information Value Date Recorded Sex Assigned at Not on file Legal Sex Female 8:52 AM EST Gender Identity Not on file Sexual Orientation Not on file documented as of this encounter Miscellaneous Notes * Telephone Encounter - Bernardo White MA - 09/16/2023 7:41 AM EST This MA is checking referral status. PT is cleared by FC. PT placed on queue to be contacted when Pts referral is reached in order of CLX received. If deemed a good candidate PT will be scheduled in their respective clinic. documented in this encounter Plan of Treatment Not on file documented as of this encounter Visit Diagnoses Not on filedocumented in this encounter
--- OUTSIDE RECORDS SUMMARY | 2024-05-30 08:30 | XMS_ITS | Encounter Summary ---
Author Organization [employer] Address [address] [place] [address] Care Team Providers Care Commercial Real Estate Manager Name Role Phone Unavailable Primary Care Provider Unavailabl e Reason for Visit * Reason Onset Date Comments Follow-up 09/28/2022 Encounter Details Date Type Department Care Team (Late st Contact Info) Description 09/28/2022 Telephone [facility] [address] [place] [address] [address] Annmarie George CMA Follow-up Social History Tobacco Use Types Packs/Day Years [...] PM CDT Sexual Orientation Not on file COVID-19 Exposure Response Date Recorded In the last 10 days, have yo u been in contact with someone who was confirmed or suspected to have Coronavirus/COVID-19? No / Unsure 09/23/2022 6:33 AM EST documented as of this encounter Miscellaneous Notes * Telephone Encounter - Annmarie Nowak CMA - 09/28/2022 1:16 PM EDT Patient called today saying that she had missed a phone call yesterday from Tessie about her PD catheter flush and training appointment. I told the patient that her appointment is on Tuesday10/01/2022 @ 1:00 p.m. She is to go to [address] [place] [address]. If she has any questions or needs to change her appointment she can contact them at [phone]. She voiced her understanding and thanked me for the information. Electronically signed by Annmarie Nowak CMA - 09/28/2022 - 1:18 PM EDT documented in this encounter Plan of Treatment Not on file documented as of this encounter Visit Diagnoses Not on filedocumented in this encounter
--- OUTSIDE RECORDS SUMMARY | 2024-05-30 08:30 | XMS_ITS ---
Author Organization [facility] Address [address] [place] [address] Care Team Providers Care Normalizer Name Role Phone Unavailable Primary Care Provider Unavailabl e Transplant Episode Kidney Candidate [facility] ([place], [place]) - [facility] Referred on 09/06/2023 Marked as Ineligible on 12/08/2023 Reason: Transplanted at Another Center Kidney CoordinatorVivian Dee RN Phone: N/A Fax: N/A Email: N/A Scores Score Value Updated Exceptions/Reas ons CPRA Not available EPTS (Calc) 28 05/30/2024 Care Team Name Role Phone Fax Email Vivian Dee RN Kidney Coordinator N/A N/A N/A Amish Ritchie MD Txp Kiln Setter N/A N/A N/A Vivian Dee RN Txp Pre Coordinator N/A N/A N/A Mukul Stevens MD Referring Physician N/A N/A N/A Events Pre-Transplant Referred: 09/06/2023 Dialysis History Dialysis History Start End Type Comments Center 11/08/2022 Peritoneal [facility] Dialysis Center Information Center Phone Fax Address [facility] [phone] [facility], [address] [place] [address]
--- OUTSIDE RECORDS SUMMARY | 2024-05-30 08:31 | XMS_ITS | Encounter Summary ---
Author Organization [facility] Address [address] [place] [address] Care Team Providers Care Senior Mainframe Programmer Analyst Name Role Phone Unavailable Primary Care Provider Unavailabl e Encounter Details Date Type Department Care Team (Late st Contact Info) Description 01/19/2020 Transcribed Document [facility] [place] [address] [place] [address] ProviderLaury MD [address] [place] [address] Social History Tobacco Use Types Packs/Day Years Used Date Smoking Tobacco: Never Assessed Comments Unknown Sex and Gender Information Value Date Recorded Sex Assigned at Female 01/12/2022 7:15 PM CDT Legal Sex Female 7:15 PM CDT Gender Identity Female 01/12/2022 7:15 PM CDT Sexual Orientation Not on file documented as of this encounter Miscellaneous Notes * Cerner Conversion Note - Laury ProviderMD - 01/19/2020 3:29 PM CDT Patient Education Materials Follows: Vomiting, Adult Vomiting occurs when stomach contents are thrown up and out of the mouth. Many people notice nausea before vomiting. Vomiting can make you feel weak and cause you to become dehydrated. Dehydration can make you feel tired and thirsty, cause you to have a dry mouth, and decrease how often you urinate. Older adults and people who have other diseases or a weak body defense system (immune system) are at higher risk for dehydration. It is important to treat vomiting as told by your health care provider. Follow these instructions at home: Eating and drinking Follow these recommendations as told by your health care provider: ??? Take an oral rehydration solution (ORS). This is a drink that is sold at pharmacies and retail stores. ??? Eat bland, wqff-pe-znosiv foods in small amounts as you are able. These foods include bananas, applesauce, rice, lean meats, toast, and crackers. ??? Drink clear fluids slowly and in small amounts as you are able. Clear fluids include water, ice chips, low-calorie sports drinks, and fruit juice that has water added (diluted fruit juice). ??? Avoid drinking fluids that contain a lot of sugar or caffeine, such as energy drinks, sports drinks, and soda. ??? Avoid alcohol. ??? Avoid spicy or fatty foods. General instructions ??? Wash your hands often using soap and water. If soap and water are not available, use hand automation specialist. Make sure that everyone in your household washes their hands frequently. ??? Take ecrw-tva-fmaxbmt and prescription medicines only as told by your health care provider. ??? Rest at home while you recover. ??? Watch your condition for any changes. ??? Keep all follow-up visits as told by your health care provider. This is important. Contact a health care provider if: ??? Your vomiting gets worse. ??? You have new symptoms. ??? You have a fever. ??? You cannot drink fluids without vomiting. ??? You feel light-headed or dizzy. ??? You have a headache. ??? You have muscle cramps. ??? You have a rash. ??? You have pain while urinating. Get help right away if: ??? You have pain in your chest, neck, arm, or jaw. ??? You feel extremely weak or you faint. ??? You have persistent vomiting. ??? You have vomit that is bright red or looks like black coffee grounds. ??? You have stools that are bloody or black, or stools that look like tar. ??? You have a severe headache, a stiff neck, or both. ??? You have severe pain, cramping, or bloating in your abdomen. ??? You have trouble breathing or you are breathing very quickly. ??? Your heart is beating very quickly. ??? Your skin feels cold and clammy. ??? You feel confused. ??? You have signs of dehydration, such as: ? Dark urine, very little urine, or no urine. ? Cracked lips. ? Dry mouth. ? Sunken eyes. ? Sleepiness. ? Weakness. These symptoms may represent a serious problem that is an emergency. Do not wait to see if the symptoms will go away. Get medical help right away. Call your local emergency services (911 in the [place] Do not drive yourself to the hospital. Summary ??? Vomiting occurs when stomach contents are thrown up and out of the mouth. Vomiting can cause you to become dehydrated. Older adults and people who have other diseases or a weak immune system are at higher risk for dehydration. ??? It is important to treat vomiting as told by your health care provider. Follow your health care provider's instructions about eating and drinking. ??? Wash your hands often using soap and water. If soap and water are not available, use hand automation specialist. Make sure that everyone in your household washes their hands frequently. ??? Watch your condition for any changes and for signs of dehydration. ??? Keep all follow-up visits as told by your health care provider. This is important. This information is not intended to replace advice given to you by your health care provider. Make sure you discuss any questions you have with your health care provider. Document Released: 07/30/2016 Document Revised: 12/12/2018 Document Reviewed: 12/12/2018 [employer] Interactive Patient Education ? 2020 [employer] Endocrinology Hypoglycemia Hypoglycemia occurs when the level of sugar (glucose) in the blood is too low. Hypoglycemia can happen in people who do or do not have diabetes. It can develop quickly, and it can be a medical emergency. For most people with diabetes, a blood glucose level below 70 mg/dL (3.9 mmol/L) is considered hypoglycemia. Glucose is a type of sugar that provides the body's main source of energy. Certain hormones (insulin and glucagon) control the level of glucose in the blood. Insulin lowers blood glucose, and glucagon raises blood glucose. Hypoglycemia can result from having too much insulin in the bloodstream, or from not eating enough food that contains glucose. You may also have reactive hypoglycemia, which happens within 4 hours after eating a meal. What are the causes? Hypoglycemia occurs most often in people who have diabetes and may be caused by: ??? Diabetes medicine. ??? Not eating enough, or not eating often enough. ??? Increased physical activity. ??? Drinking alcohol on an empty stomach. If you do not have diabetes, hypoglycemia may be caused by: ??? A tumor in the pancreas. ??? Not eating enough, or not eating for long periods at a time (fasting). ??? A severe infection or illness. ??? Certain medicines. What increases the risk? Hypoglycemia is more likely to develop in: ??? People who have diabetes and take medicines to lower blood glucose. ??? People who abuse alcohol. ??? People who have a severe illness. What are the signs or symptoms? Mild symptoms Mild hypoglycemia may not cause any symptoms. If you do have symptoms, they may include: ??? Hunger. ??? Anxiety. ??? Sweating and feeling clammy. ??? Dizziness or feeling light-headed. ??? Sleepiness. ??? Nausea. ??? Increased heart rate. ??? Headache. ??? Blurry vision. ??? Irritability. ??? Tingling or numbness around the mouth, lips, or tongue. ??? A change in coordination. ??? Restless sleep. Moderate symptoms Moderate hypoglycemia can cause: ??? Mental confusion and poor judgment. ??? Behavior changes. ??? Weakness. ??? Irregular heartbeat. Severe symptoms Severe hypoglycemia is a medical emergency. It can cause: ??? Fainting. ??? Seizures. ??? Loss of consciousness (coma). ??? . How is this diagnosed? Hypoglycemia is diagnosed with a blood test to measure your blood glucose level. This blood test is done while you are having symptoms. Your health care provider may also do a physical exam and review your medical history. How is this treated? This condition can often be treated by immediately eating or drinking something that contains sugar, such as: ??? Fruit juice, 4?6 oz (120?150 mL). ??? Regular soda (not diet soda), 4?6 oz (120?150 mL). ??? Low-fat milk, 4 oz (120 mL). ??? Several pieces of hard candy. ??? Sugar or honey, 1 Tbsp (15 mL). Treating hypoglycemia if you have diabetes If you are alert and able to swallow safely, follow the 15:15 rule: ??? Take 15 grams of a rapid-acting carbohydrate. Talk with your health care provider about how much you should take. ??? Rapid-acting options include: ? Glucose pills (take 15 grams). ? 6?8 pieces of hard candy. ? 4?6 oz (120?150 mL) of fruit juice. ? 4?6 oz (120?150 mL) of regular (not diet) soda. ? 1 Tbsp (15 mL) honey or sugar. ??? Check your blood glucose 15 minutes after you take the carbohydrate. ??? If the repeat blood glucose level is still at or below 70 mg/dL (3.9 mmol/L), take 15 grams of a carbohydrate again. ??? If your blood glucose level does not increase above 70 mg/dL (3.9 mmol/L) after 3 tries, seek emergency medical care. ??? After your blood glucose level returns to normal, eat a meal or a snack within 1 hour. Treating severe hypoglycemia Severe hypoglycemia is when your blood glucose level is at or below 54 mg/dL (3 mmol/L). Severe hypoglycemia is a medical emergency. Get medical help right away. If you have severe hypoglycemia and you cannot eat or drink, you may need an injection of glucagon. A family member or close friend should learn how to check your blood glucose and how to give you a glucagon injection. Ask your health care provider if you need to have an emergency glucagon injection kit available. Severe hypoglycemia may need to be treated in a hospital. The treatment may include getting glucose through an IV. You may also need treatment for the cause of your hypoglycemia. Follow these instructions at home: General instructions ??? Take [id number] and prescription medicines only as told by your health care provider. ??? Monitor your blood glucose as told by your health care provider. ??? Limit alcohol intake to no more than 1 drink a day for non women and 2 drinks a day for men. One drink equals 12 oz of beer (355 mL), 5 oz of wine (148 mL), or 1? oz of hard liquor (44 mL). ??? Keep all follow-up visits as told by your health care provider. This is important. If you have diabetes: ??? Always have a rapid-acting carbohydrate snack with you to treat low blood glucose. ??? Follow your diabetes management plan as directed. Make sure you: ? Know the symptoms of hypoglycemia. It is important to treat it right away to prevent it from becoming severe. ? Take your medicines as directed. ? Follow your exercise plan. ? Follow your meal plan. Eat on time, and do not skip meals. ? Check your blood glucose as often as directed. Always check before and after exercise. ? Follow your sick day plan whenever you cannot eat or drink normally. Make this plan in advance with your health care provider. ??? Share your diabetes management plan with people in your workplace, school, and household. ??? Check your urine for ketones when you are ill and as told by your health care provider. ??? Carry a medical alert card or wear medical alert jewelry. Contact a health care provider if: ??? You have problems keeping your blood glucose in your target range. ??? You have frequent episodes of hypoglycemia. Get help right away if: ??? You continue to have hypoglycemia symptoms after eating or drinking something containing glucose. ??? Your blood glucose is at or below 54 mg/dL (3 mmol/L). ??? You have a seizure. ??? You faint. These symptoms may represent a serious problem that is an emergency. Do not wait to see if the symptoms will go away. Get medical help right away. Call your local emergency services (911 in the [place] Summary ??? Hypoglycemia occurs when the level of sugar (glucose) in the blood is too low. ??? Hypoglycemia can happen in people who do or do not have diabetes. It can develop quickly, and it can be a medical emergency. ??? Make sure you know the symptoms of hypoglycemia and how to treat it. ??? Always have a rapid-acting carbohydrate snack with you to treat low blood sugar. This information is not intended to replace advice given to you by your health care provider. Make sure you discuss any questions you have with your health care provider. Document Released: 07/04/2006 Document Revised: 12/26/2018 Document Reviewed: 08/06/2016 [employer] Interactive Patient Education ? 2020 [employer]. documented in this encounter Plan of Treatment Not on file documented as of this encounter Visit Diagnoses Not on filedocumented in this encounter
--- OUTSIDE RECORDS SUMMARY | 2024-05-30 08:31 | XMS_ITS | Encounter Summary ---
Author Organization [facility] Address [address] [place] [address] Care Team Providers Care Draw Off Worker Name Role Phone Unavailable Primary Care Provider Unavailabl e Encounter Details Date Type Department Care Team (Late st Contact Info) Description 01/19/2020 Transcribed Document [facility] [place] [facility] [place] [address] ProviderLaury MD [address] [place] [address] Social History Tobacco Use Types Packs/Day [...] Conversion Note - Laury ProviderMD - 01/19/2020 1:41 AM CDT Admission History, Adult Entered On: 01/19/2020 8:47 EDT Performed On: 01/19/2020 1:41 EDT by OCTAVIO BRAND RN Advance Directive Patient has Advance Directive *Q : No, patient refuses Advance Directive information OCTAVIO BRAND RN - 01/19/2020 8:36 EDT Anesthesia/Transfusion History Family History of Anesthesia Reaction : No prior transfusion(s) Blood Transfusion Acceptable to Patient : Yes Transfusion History : Prior anesthesia without reaction Family History of Anesthesia Reaction : None OCTAVIO BRAND RN - 01/19/2020 8:36 EDT Functional Assessment Living Situation : Home Current Home Treatments : Blood glucose monitoring, Other: insulin pump OCTAVIO BRAND RN - 01/19/2020 8:36 EDT General Info Mode of Arrival on Unit : Ambulatory Legal Guardian : Unaccompanied Want Family/Rep/Phys Notified of Admit : No Emergency Contact #1 : Jaquan Smith Emergency Contact #1 cell Emergency Contact #1 Relationship : spouse Emergency Contact #2 : Na Emergency Contact #2 Phone Number : na Emergency Contact #2 Relationship : na Chief Complaint : I THINK I AM DEHYDRATED, I HAD BARIATRIC SURGERY 01/04/20, GASTRIC SLEEVE, EVERYTIME I EAT OR DRINK I PUKE Information Obtained From : Patient Primary Language : [place] Preferred Communication Mode : Verbal Communication Barrier : None Foreign Language Interpreter Needed : No OCTAVIO BRAND RN - 01/19/2020 8:36 EDT Fall Risk Scales ABCs Fall Injury Risk Identification : None [place] Hx Falls Immediate/Within 3 Months : No [place] Secondary Diagnosis : Yes [place] Use of Ambulatory Aid : None [place] IV Therapy or IV Access : Yes [place] Gait/Transferring : Normal, bedrest, immobile [place] Mental Status : Oriented to own ability [place] Fall Risk Score : 35 [place] Fall Scale Risk Level : 0-24 Low Risk [place] Fall Interventions : Adequate lighting, Bed in low position, Call device within reach, Fall prevention handout/education per facility policy, Hourly comfort/safety rounds, Non-slip footwear, Personal items within reach, Reinforced to call for assistance before getting out of bed, Room free of clutter/spills, Upper side-rails up, Wheels locked, Wires/Cords secured OCTAVIO BRAND RN - 01/19/2020 8:36 EDT Health Histories Smoking Status : Former smoker, quit more than 30 days ago Smokeless Tobacco Status : Never OCTAVIO BRAND RN - 01/19/2020 8:36 EDT Social History (As Of: 01/19/2020 08:47:51 EDT) Tobacco: Former smoker, quit more than 30 days ago Smoking Status. Never Smokeless Tobacco Status. Years of Use: 20. Packs/Tins Daily: 1.75. (Last Updated: 08/24/2019 10:20:52 EST by ANGE Green RN) Former smoker, quit more than 30 days ago Smoking Status. Never Smokeless Tobacco Status. Last Used: 07/04/2020. (Last Updated: 10/03/2019 10:54:53 EDT by Noelle Umanzor Rn) Alcohol: Alcohol Use History No. (Last Updated: 08/24/2019 10:20:55 EST by ANGE Green RN) Alcohol Use History No. Use in Last 12 Months: No. (Last Updated: 10/03/2019 10:55:06 EDT by Noelle Umanzor Rn) Substance Abuse: Drug Use Hx: No. Use in Last 12 Months: No. (Last Updated: 08/24/2019 10:20:59 EST by ANGE Green RN) Nutrition/Health: Caffeine intake amount: 6-12 drinks daily. (Last Updated: 08/24/2019 10:21:13 EST by ANGE Green RN) Caffeine intake amount: none. (Last Updated: 10/03/2019 10:55:25 EDT by Noelle Umanzor Rn) Height and Weight, Clinical Dosing Height Source : Stated Height Entry Format : [place] Height, Feet : 5 ft(Converted to: 152 cm, 60 Inch) Height, Inches : 5 Inch(Converted to: 0 ft 5 Inch, 12.70 cm) Clinical Height : 165.1 cm Weight Source : Standing scale Weight Entry Format : Weld Clinical Dosing Weight : 104.91 kg Weight, Pounds : 230.8 lb Body Surface Area (BSA) : 2.1 m2 Body Mass Index : 38.5 kg/m2 (HI) [place] Body Weight : 57 kg OCTAVIO BRAND RN - 01/19/2020 8:36 EDT Infectious Disease History Has the patient ever been tested for COVID-19? : No, Patient stated Date of COVID-19 test known? : Yes Date of COVID-19 Test : 01/02/2020 EDT Date Comment : negative COVID19 Screening : No Experiencing Infectious Disease Symptoms : No symptoms Physical contact outside [place] in the last 30 days : No Infectious Disease Symptoms Score : 0 Infectious Disease History : Influenza Tuberculosis Symptoms : None OCTAVIO BRAND RN - 01/19/2020 8:36 EDT Influenza Vaccine Asmt, Adult Previous Vaccines from Immunization Schedule : No qualifying data available. Influenza Immunization, Current Season : No Inactivated Flu Vaccine Contraindications : No contraindications to inactivated influenza vaccine Transplant Workup/Recent Transplant : No Order for Influenza Vaccine : Declined Vaccination OCTAVIO BRAND RN - 01/19/2020 8:36 EDT Pneumococcal Vaccine Previous Vaccines from Immunization Schedule : No qualifying data available. Pneumonia Immunization Received : No Pneumococcal Risk Assessment < Age 65 : Diabetes Pneumococcal Vaccine Contraindications : No contraindications to pneumococcal vaccine Transplant Workup/Recent Transplant : No Order for Pneumococcal Vaccine : Declined Vaccination OCTAVIO BRAND RN - 01/19/2020 8:36 EDT Order Details Transport Mode Order Detail : Wheelchair Isolation Precautions Order Detail : Standard Precautions Order Detail : 0 IV Order Detail : 1 Oxygen Order Detail : 0 Nurse Collect Order Detail : 0 Lift/Transfer : Minimal Central Line Order Detail : No Room Service : Not Appropriate Arterial Line : No OCTAVIO BRAND RN - 01/19/2020 8:36 EDT Nutrition History Adaptive Feeding Equipment : Other: low carb high protein, bariatric diet Oral Medication Administration : By mouth Eating Poorly Due to Decreased Appetite : No Unplanned Weight Loss in Past 3-6 Months : No Malnutrition Screening Tool Total(mal) : 0 Malnutrition Screening Tool Risk Level : Patient not at risk OCTAVIO BRAND RN - 01/19/2020 8:36 EDT [place] Suicide Severity Rating Scale (C-SSRS) CSSRS Past Month Wish to be : No CSSRS Past Month Suicidal Thoughts : No CSSRS Lifetime Suicide Behavior : No Suicide Severity Rating Score : 0 Suicide Severity Rating : No Additional Care Required at this time OCTAVIO BRAND RN - 01/19/2020 8:36 EDT Psychosocial History Do You Have a History of the Following? : Depression Currently in Unsafe Situation : No OCTAVIO BRAND RN - 01/19/2020 8:36 EDT Sleep Apnea Risk Assmt Hx of Obstructive Sleep Apnea Diagnosis : No Snore Loudly : Yes Tired, Fatigued, or Sleepy During Day : No Observed Stopping Breathing During Sleep : No Have/Are Being Treated for Hypertension : Yes BMI Greater Than 35 kg/m2 : Yes Age over 50 Years Old : No Neck Circumference Greater Than 40 cm : No Gender Male : No STOP-BANG Sleep Apnea Risk Level Score : 3 OCTAVIO BRAND RN - 01/19/2020 8:36 EDT Valuables and Belongings Valuables and Belongings : Clothing, Personal devices Clothing : Common streetwear, Other: insulin pump Clothing Disposition : With patient Personal Device Disposition : Bedside Personal Devices : Other: cell phone and insulin pump OCTAVIO BRAND RN - 01/19/2020 8:36 EDT documented in this encounter Plan of Treatment Not on file documented as of this encounter Visit Diagnoses Not on filedocumented in this encounter
--- OUTSIDE RECORDS SUMMARY | 2024-05-30 08:31 | XMS_ITS | Encounter Summary ---
Author Organization [facility] Address [address] [place] [address] Care Team Providers Care Abrasive Mixer Name Role Phone Unavailable Primary Care Provider Unavailabl e Encounter Details Date Type Department Care Team (Late st Contact Info) Description 09/06/2022 Orders Only [facility] [address] [place] [address] [place] [address] [place] [address] [address] [place] [address] Social History Tobacco Use Types Packs/Day Years Used Date Smoking Tobacco: Every Day Smokeless Tobacco: Never Alcohol Use Standard Drinks/Week Comments Yes 0 (1 standard drink = 0.6 oz pur e alcohol) Comments Unknown Sex and Gender Information Value Date Recorded Sex Assigned at Female 01/12/2022 7:15 PM CDT Legal Sex Female 7:15 PM CDT Gender Identity Female 01/12/2022 7:15 PM CDT Sexual Orientation Not on file documented as of this encounter Plan of Treatment Not on file documented as of this encounter Procedures Procedure Name Priority Date/Time Associated Diagnosis Comments PATHOLOGY REPORT AP Routine 06/13/2018 documented in this encounter Results * PATHOLOGY REPORT (06/13/2018) us Ibrahima Talamantes MD PATHOLOGY/CYTOLOGY ORDERABLES Final Result documented in this encounter Visit Diagnoses Not on filedocumented in this encounter
--- OUTSIDE RECORDS SUMMARY | 2024-05-30 08:31 | XMS_ITS | Encounter Summary ---
Author Organization [facility] Address [address] [place] [address] Care Team Providers Care Plant Protection Superintendent Name Role Phone Unavailable Primary Care Provider Unavailabl e Encounter Details Date Type Department Care Team (Latest Contact Info) Description 09/23/2022 Travel Social History Tobacco Use Types Packs/Day Years [...] AM EST documented as of this encounter Plan of Treatment Not on file documented as of this encounter Visit Diagnoses Not on filedocumented in this encounter
--- OUTSIDE RECORDS SUMMARY | 2024-05-30 08:31 | XMS_ITS | Encounter Summary ---
Author Organization [employer] Address [address] [place] [address] Care Team Providers Care Quick Print Operator Name Role Phone Unavailable Primary Care Provider Unavailabl e Reason for Visit * Reason Comments Post-Op Follow-up laparoscopic periton eal dialysis catheter placement Encounter Details Date Type Department Care Team (Late st Contact Info) Description 09/27/2022 1:00 PM EDT Office Visit [facility] [address] [place] [address] Ace Simms PA-C [address] [place] [address] [address] [place] [address] Stage 4 chronic kidney disease (HCC) (Primary Dx) Social History Tobacco Use Types [...] AM EST documented as of this encounter Last Filed Vital Signs Vital Sign Reading Time Taken Comments Blood Pressure 169/93 09/27/2022 12:16 PM EDT Pulse 94 09/27/2022 12:16 PM EDT Temperature - - Respiratory Rate - - Oxygen Saturation - - Inhaled Oxygen Concentration - - Weight 71.2 kg (157 lb) 09/27/2022 12:16 PM EDT Height 165.1 cm (5' 5 ) 09/27/2022 12:16 PM EDT Body Mass Index 26.13 09/27/2022 12:16 PM EDT documented in this encounter Progress Notes * Ace Simms PA-C - 09/27/2022 1:00 PM EDT Subjective: Chief Complaint Patient presents with ??? Post-Op Follow-up laparoscopic peritoneal dialysis catheter placement Crystal Archer is a 32 y.o. female here post-op laparoscopic peritoneal dialysis catheter placement 09/23/2022/ dressing change. She is sore. She denies any nausea or vomiting. She has not had a bowel movement since before surgery. Pain controlled. Review of Systems Constitutional: Negative. HENT: Negative. Eyes: Negative. Respiratory: Negative. Cardiovascular: Negative. Gastrointestinal: Positive for abdominal pain and constipation. Endocrine: Negative. Genitourinary: Negative. Musculoskeletal: Negative. Skin: Negative. Allergic/Immunologic: Negative. Neurological: Negative. Hematological: Negative. Psychiatric/Behavioral: Negative. \ Objective: BP (!) 169/93 (BP Location: Right arm, Patient Position: Sitting) Pulse 94 Ht 1.651 m (5' 5 ) Wt 71.2 kg (157 lb) BMI 26.13 kg/m?? Physical Exam incisions c/d/i. PD cath in place with no sign of infection. Assessment: Assessment 1. Stage 4 chronic kidney disease (HCC) S/p PD catheter placement. Doing well. Pain controlled. Plan: Discussed lifting restrictions and wound care. Dialysis center will call with follow up appointment F/u PRN Electronically signed by Annmarie Nowak CMA - 09/27/2022 - 12:18 PM EDT documented in this encounter Plan of Treatment Not on file documented as of this encounter Visit Diagnoses Diagnosis Stage 4 chronic kidney disease (HCC)- Primary documented in this encounter
--- OUTSIDE RECORDS SUMMARY | 2024-05-30 08:31 | XMS_ITS | Encounter Summary ---
Author Organization [employer] Address [address] [place] [address] Care Team Providers Care Stoker Erector Name Role Phone Unavailable Primary Care Provider Unavailabl e Encounter Details Date Type Department Care Team (Late st Contact Info) Description 01/04/2020 Transcribed Document [facility] [facility] [place] [address] ProviderLaury MD [address] [place] [address] Social History Tobacco Use Types [...] Cerner Conversion Note - Laury ProviderMD - 01/04/2020 2:12 PM CDT UM Authorization Entered On: 01/04/2020 14:12 EDT Performed On: 01/04/2020 14:12 EDT by MANOJ HWANG RN-Utilization Review Primary Insurance Authorization Authorization and Policy Numbers : Insurance 1 [facility] Policy Number: [id number] Authorization Number: [id number] Insurance Primary Name : [facility] Policy Number: [id number] Authorization Status-Primary : Admit approved Reference Number-Primary : [id number] Authorization Number-Primary : [id number] Number of Days Authorized-Primary : 0 Day(s) Authorized Service Begin Date-Primary : 01/04/2020 EDT Authorized Service End Date-Primary : 01/04/2020 EDT Historical Authorization Comments-Primary : Comment 1: [employer] approved per website for 1 day inpt (MANOJ HWANG RN-Utilization Review 12/28/2019 11:50) MANOJ HWANG RN-Utilization Review - 01/04/2020 14:12 EDT documented in this encounter Plan of Treatment Not on file documented as of this encounter Visit Diagnoses Not on filedocumented in this encounter
--- OUTSIDE RECORDS SUMMARY | 2024-05-30 08:31 | XMS_ITS | Encounter Summary ---
Author Organization [employer] Address [address] [place] [address] Care Team Providers Care Dry Cell Sealer Name Role Phone Unavailable Primary Care Provider Unavailabl e Encounter Details Date Type Department Care Team (Late st Contact Info) Description 05/30/2020 Historic Encounter [address] [address] ProviderJen Historical Social History Tobacco Use Types Packs/Day Years [...] Procedure Name Priority Date/Time Associated Diagnosis Comments NOVEL CORONAVIRUS 2019 PCR ([facility] DATA CONV) Routine 05/30/2020 8:28 AM EST documented in this encounter Results * NOVEL CORONAVIRUS 2019 PCR ([facility] DATA CONV) (05/30/2020 8:28 AM EST) Novel COVID 2019 PCR NOT DETECTED NEGATIVE- NEGATIVE [facility] Comment: Testing performed at: [facility] [address] [place] [address], [facility] [address] [place] [address] Director: SHABNAM PRESSLEY, PHD ?? CLIA#:[id number] 05/30/2020 8:28 AM EST [facility] Historical Provider BODY FLUIDS AND STOOLS ORDERABLES Final Result [facility] [address] [place], [place] [id number], [facility] [phone] documented in this encounter Visit Diagnoses Not on filedocumented in this encounter
--- OUTSIDE RECORDS SUMMARY | 2024-05-30 08:31 | XMS_ITS | Encounter Summary ---
Author Organization [employer] Address [address] [place] [address] Care Team Providers Care Corporate Financial Analyst Name Role Phone Unavailable Primary Care Provider Unavailabl e Encounter Details Date Type Department Care Team (Late st Contact Info) Description 01/07/2020 Transcribed Document [facility] [place] Family Medicine [address] [place] [address] ProviderLaury MD [address] [place] [address] Social History Tobacco Use Types Packs/Day [...] Cerner Conversion Note - Laury ProviderMD - 01/07/2020 11:01 AM CDT Patient: FREDDIE ARCHER Age: 29 Years Sex: Female : 1990 Admit Date 01/04/2020 04:47 Discharge Date 01/05/2020 14:12 Primary Care Provider ERIKA PESRAUD MD-INT Discharge Diagnosis Morbid obesity 01/05/2020 E66.01 ICD-10-CM Morbid obesity 01/04/2020 E66.01 ICD-10-CM Procedures SN - Proc - Procedure: Gastrectomy Sleeve Laparoscopic (01/04/20 09:17:21) Reason for Hospitalization is 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 After discussing all the risks and benefits of procedure and reviewing all the medical history, the patient decided to consent for it. [1] Hospital Course On the day of admission the patient was taken to the operating room by Dr. Alejandro where she underwent the surgical procedure listed above. This procedure was tolerated by the patient without any complications. Estimated blood loss was minimal. Postoperatively the patient was taken recovery room followed by admission to the medical surgical floor. On the first postoperative day patient was afebrile her vital signs were stable. She was ambulating in the halls independently. She was tolerating her stage I bariatric liquid diet without any nausea or vomiting. Her postsurgical pain was well-controlled with her current medications. On this day following evaluation by Dr. Alejandro the patient was stable for discharge home. Discharge Disposition Home Discharge Follow Up GISSELLE ALEJANDRO MD - Within 2 to 3 days Discharge Medications (12) Active atorvastatin 40 mg, Oral, Daily calcitriol 0.25 mcg, Oral, Daily calcium acetate 1,334 mg, Oral, TID carvedilol 25 mg, Oral, BID FLUoxetine 10 mg, Oral, Daily gabapentin 300 mg, Oral, BID hydrALAZINE 25 mg, Oral, BID insulin lispro 100 units/mL injectable solution 170 Units, SubCutaneous, Daily loratadine 10 mg, Oral, Daily Multiple Vitamins oral tablet 1 Tab, Oral, Daily sodium bicarbonate 650 mg oral tablet 1,300 mg = 2 Tab, Oral, BID Vitamin D2 50,000 intl units (1.25 mg) oral capsule 50,000 Int Units = 1 Cap, Oral, Weekly Hibbs 7.5/325 oral every 6 hours as needed for pain. Zofran 8mg oral every 12 hours as needed for nausea. Prilosec 20mg oral daily. Starts tomorrow. [2] Code Status No Code Status Order on Record Condition on Discharge Stable Consulting Physicians LARRY JAIMES MD-ANS Current Diet Order No qualifying data available. Patient Discharge Summary Orders Discharge Follow Up Instructions: followup next weekCall for [id number] Follow Up Instructions: call office on tuesday for followup appointment Activity: Discharge Activity: No heavy lifting over 10 lbs Diet: Warm liquids in the morning. May progress to full liquids and soft high protein foods as tolerated (Cottage cheese, chicken salad, eggs, etc). Make sure foods are wet . Drink 64 oz of fluids per day. Refer to Daljit-handbook., Discharge Diet: Other (see Special Instructions) [3] [1] Op Note; GISSELLE ALEJANDRO MD 01/04/2020 10:31 EDT [2] Inpatient Discharge Instructions; OCTAVIO BRAND RN 01/05/2020 13:45 EDT [3] Inpatient Discharge Instructions; OCTAVIO BRAND RN 01/05/2020 13:45 EDT documented in this encounter Plan of Treatment Not on file documented as of this encounter Visit Diagnoses Not on filedocumented in this encounter
--- OUTSIDE RECORDS SUMMARY | 2024-05-30 08:31 | XMS_ITS | Encounter Summary ---
Author Organization [employer] Address [address] [place] [address] Care Team Providers Care Medical Insurance Biller Name Role Phone Unavailable Primary Care Provider Unavailabl e Encounter Details Date Type Department Care Team (Late st Contact Info) Description 01/05/2020 Transcribed Document [facility] [address] [place] [address] ProviderLaury MD [address] [place] [address] Social History Tobacco Use Types Packs/Day [...] Cerner Conversion Note - Laury ProviderMD - 01/05/2020 7:34 PM CDT Pain Assessment Entered On: 01/05/2020 7:37 EDT Performed On: 01/04/2020 23:40 EDT by Mickey Fuentes, RN Intervention Information: acetaminophen-HYDROcodone Performed by Mickey Fuentes, RN on 01/04/2020 22:40:00 EDT acetaminophen-HYDROcodone,2Tab Oral,Pain (Severe 7-10) Pain Assessment Pain Assessment : Follow-up assessment Pain Scale Goal : 3 Pain Scale Used : 0-10 Scale Mickey Fuentes RN - 01/05/2020 7:37 EDT Pain Scale Intensity : 3 Mickey Fuentes RN - 01/05/2020 7:37 EDT Image 4 - Images currently included in the form version of this document have not been included in the text rendition version of the form. documented in this encounter Plan of Treatment Not on file documented as of this encounter Visit Diagnoses Not on filedocumented in this encounter
--- OUTSIDE RECORDS SUMMARY | 2024-05-30 08:31 | XMS_ITS | Encounter Summary ---
Author Organization [employer] Address [address] [place] [address] Care Team Providers Care Insights Analyst Name Role Phone Unavailable Primary Care Provider Unavailabl e Encounter Details Date Type Department Care Team (Late st Contact Info) Description 01/18/2020 Transcribed Document [facility] [place] Medicine [address] [place] [address] ProviderLaury MD [address] [place], [place] [id number] Social History Tobacco Use Types Packs/Day Years Used Date Smoking Tobacco: Never Assessed Comments Unknown Sex and Gender Information Value Date Recorded Sex Assigned at Female 01/12/2022 7:15 PM CDT Legal Sex Female 7:15 PM CDT Gender Identity Female 01/12/2022 7:15 PM CDT Sexual Orientation Not on file documented as of this encounter Miscellaneous Notes * Cerner Conversion Note - Laury ProviderMD - 01/18/2020 8:28 PM CDT [place] Suicide Severity Rating Scale (C-SSRS) Entered On: 01/18/2020 21:29 EDT Performed On: 01/18/2020 21:29 EDT by JASON FUENTES RN [place] Suicide Severity Rating Scale (C-SSRS) CSSRS Past Month Wish to be : No CSSRS Past Month Suicidal Thoughts : No CSSRS Lifetime Suicide Behavior : No Suicide Severity Rating Score : 0 Suicide Severity Rating : No Additional Care Required at this time JASON FUENTES, RN - 01/18/2020 21:29 EDT documented in this encounter Plan of Treatment Not on file documented as of this encounter Visit Diagnoses Not on filedocumented in this encounter
--- OUTSIDE RECORDS SUMMARY | 2024-05-30 08:31 | XMS_ITS | Encounter Summary ---
Author Organization [employer] Address [address] [place] [address] Care Team Providers Care Surgical Consultant Name Role Phone Unavailable Primary Care Provider Unavailabl e Encounter Details Date Type Department Care Team (Late st Contact Info) Description 01/08/2019 Transcribed Document [facility] [place] Family Medicine [address] [place] [address] ProviderLaury MD [address] [place] [address] Social History Tobacco Use Types Packs/Day Years Used Date Smoking Tobacco: Never Assessed Comments Unknown Sex and Gender Information Value Date Recorded Sex Assigned at Female 01/12/2022 7:15 PM CDT Legal Sex Female 7:15 PM CDT Gender Identity Female 01/12/2022 7:15 PM CDT Sexual Orientation Not on file documented as of this encounter Miscellaneous Notes * Cerner Conversion Note - Laury ProviderMD - 01/08/2019 12:31 AM CDT [facility] [place], [place] [phone] Name:Crystal Archer Visit Date:01/07/2019 18:52:00 Emergency Department Care Providers: Physician: Physician: Our doctors and staff appreciate your choice of [facility] for your emergency medical care. Read these instructions carefully. Please call us if you have any questions about your medical problem. [facility] Emergency Department [phone] [facility] Emergency Department [phone] [facility] Emergency Department [phone] Patient Education Materials Crystal Archersil has been given the following patient education materials: FOLLOW UP CARE Most conditions that require emergency care require follow up. This can be with ?? Your own doctor ?? The doctor listed on this form. You will need to call for an appointment. Tell the doctor or clinic that we referred you. ?? If you do not have a regular physician, please choose one from the list given to you upon discharge from the Emergency Department. PRESCRIPTIONS ?? Fill all the prescriptions. Take them as directed. ?? If you have been given an antibiotic, be sure to take the medication for as many days and times a day listed on the instructions. ?? STOP your medicine and call the Emergency Department if you have drug allergy symptoms, if you are vomiting and cannot keep the medicine down. Call the pharmacist if you have other side effects, ?? Pain medication can make you drowsy. Do not drive or operate machinery for at least 6 hours after leaving the Emergency Department. ?? We DO NOT provide telephone refill for any prescriptions. TESTS PERFORMED TODAY ?? X-ray results are preliminary and will be read over the next day by a Radiologist. If the Doctors find any discrepancy between the preliminary reading and the final reading we will notify you. ?? If we advise you to take your x-rays to your follow up physician, please call the x-ray department to pick them up o [facility] # [phone] o [facility] # [phone] o [facility] # [phone] ?? If you had cultures done and the results require a change in your treatment, we will notify you. Culture results are usually final in 2 days after your visit. IF YOU SMOKE ?? Cigarette smoking threatens your health and the health of non-smokers. Smoking is the most preventable cause of illness and in the [place]. ?? Smoking is a hard habit to quit, but you can do it. Call any of these numbers for a resource to help you quit. o National Network of Tobacco Cessation FFfnjcmlx8-638-EPVR-NOW o [employer] o [employer] [phone] o Sai/Manuel Mahendra [phone] FINANCIAL INFORMATION ?? [facility] provides financial counseling to anyone who requests our services. ?? Emergency Physicians are independently contracted to provide your care. You will receive a bill for the care provided to you by the Physician and/or the Physician Grinder Machine Knife Setter. This will be a separate bill from your hospital bill. ?? Radiologists are independently contracted. You will receive a bill for any radiology service you receive. This will be a separate bill from your hospital bill. YOU ARE THE MOST IMPORTANT FACTOR IN YOUR RECOVERY. Follow these instructions carefully. Take your medicine as prescribed. Most importantly, follow up with a doctor. If you have problems that we have not discussed, call or visit your doctor right away. If you cannot reach your doctor, return to the Emergency Department. Patient Visit Summary Crsytal Archer has been given the following list of patient education materials, prescriptions and follow-up instructions: Patient Education Materials: Follow-Up Instructions: No follow up information was provided. I, Crystal Archer, have received a copy of these discharge instructions and acknowledge understanding of these instructions. . I understand that my condition may require more care and will arrange for further treatment as recommended Patient Signature / or Patient Seo Consultant Provider Signature Date Date/Time 01/07/2019 20:31 [facility] Home Medications Name Crystal Archer Allergy Info: NSAIDs Allergy Comment: HOME MEDICATIONS Medication Dose Route Frequency Reason For Taking Next Dose Admelog 100 units/mL injectable solution amLODIPine 2.5 mg oral tablet aspirin 81 mg oral tablet atorvastatin calcium acetate carvedilol 3.125 mg oral tablet fenofibrate gabapentin 300 mg oral capsule Lasix 40 mg oral tablet loratadine 10 mg oral capsule sodium bicarbonate Home Medications Comment: YOU SHOULD NO LONGER TAKE THESE MEDICATIONS Medication Dose Frequency Comment: This med list is based on information you provided. Please take this form with you to check with your doctor(s) the appropriateness and dosages of all your medications. I, Crystal Archer, have received a copy of discharge home medications and acknowledged understanding of these instructions. I hereby certify that I have received the above instructions and that all of my concerns/questions regarding this visit have been adequately answered. Patient Signature Date Witnessed and/or instructed by (signature) Date documented in this encounter Plan of Treatment Not on file documented as of this encounter Visit Diagnoses Not on filedocumented in this encounter
--- OUTSIDE RECORDS SUMMARY | 2024-05-30 08:31 | XMS_ITS | Encounter Summary ---
Author Organization [employer] Address [address] [place] [address] Care Team Providers Care Refinery Operator Helper Crude Unit Name Role Phone Unavailable Primary Care Provider Unavailabl e Encounter Details Date Type Department Care Team (Late st Contact Info) Description 12/28/2019 Transcribed Document [facility] [place] [address] [place] [address] ProviderLaury MD [address] [place] [address] Social History Tobacco Use Types [...] Cerner Conversion Note - Laury ProviderMD - 12/28/2019 11:50 AM CDT UM Authorization Entered On: 12/28/2019 11:51 EDT Performed On: 12/28/2019 11:50 EDT by MANOJ HWANG RN-Utilization Review Primary Insurance Authorization Authorization and Policy Numbers : Insurance 1 Health Plan: [facility] Policy Number: [id number] Authorization Number: Insurance Primary Name : [facility] Policy Number: [id number] Authorization Status-Primary : Admit approved Reference Number-Primary : [id number] Authorization Number-Primary : [id number] Number of Days Authorized-Primary : 0 Day(s) Authorized Service Begin Date-Primary : 01/04/2020 EDT Authorized Service End Date-Primary : 01/04/2020 EDT Authorization Comments-Primary : [employer] approved per website for 1 day inpt Historical Authorization Comments-Primary : No Authorization Comments Found MANOJ HWANG RN-Utilization Review - 12/28/2019 11:50 EDT documented in this encounter Plan of Treatment Not on file documented as of this encounter Visit Diagnoses Not on filedocumented in this encounter
--- OUTSIDE RECORDS SUMMARY | 2024-05-30 08:31 | XMS_ITS | Encounter Summary ---
Author Organization [employer] Address [address] [place] [address] Care Team Providers Care Clothes Drier Assembler Name Role Phone Unavailable Primary Care Provider Unavailabl e Encounter Details Date Type Department Care Team (Late st Contact Info) Description 01/05/2020 Transcribed Document [facility] [place] Family [place] [address] [place] [address] ProviderLaury MD [address] [place] [address] Social History Tobacco Use Types [...] Conversion Note - Laury ProviderMD - 01/05/2020 5:00 AM CDT Chart Check - Review Order Profile Entered On: 01/05/2020 7:38 EDT Performed On: 01/05/2020 5:00 EDT by Mickey Fuentes, RN Chart Check Powerplans Initiated/Discontinued as Appropriate : Yes All Active Orders Reviewed : Yes Mickey Fuentes RN - 01/05/2020 7:38 EDT Electronically signed by [facility] Conversion Superannuation Clerk Cerner at 11/02/2022 10:09 AM CDT documented in this encounter Plan of Treatment Not on file documented as of this encounter Visit Diagnoses Not on filedocumented in this encounter
--- OUTSIDE RECORDS SUMMARY | 2024-05-30 08:31 | XMS_ITS | Encounter Summary ---
Author Organization [facility] In iatives Address [address] [place] [address] Care Team Providers Care Reforestation Worker Name Role Phone Unavailable Primary Care Provider Unavailabl e Encounter Details Date Type Department Care Team (Late st Contact Info) Description 01/04/2020 Transcribed Document [facility] [place] [address] ProviderLaury MD [address] [place] [address] [id number] Social History Tobacco Use Types Packs/Day Years Used Date Smoking Tobacco: Never Assessed Comments Unknown Sex and Gender Information Value Date Recorded Sex Assigned at Female 01/12/2022 7:15 PM CDT Legal Sex Female 7:15 PM CDT Gender Identity Female 01/12/2022 7:15 PM CDT Sexual Orientation Not on file documented as of this encounter Miscellaneous Notes * Cerner Conversion Note - Laury Conte MD - 01/04/2020 10:31 AM CDT Patient: FREDDIE ARCHER Age: 29 Years Sex: Female : 1990 OPERATIVE REPORT DATE OF PROCEDURE: 01/04/2020 PREOPERATIVE DIAGNOSIS(ES): Morbid obesity POSTOPERATIVE DIAGNOSIS(ES): Morbid obesity PROCEDURE: 1. Laparoscopic sleeve gastrectomy SURGEON: Xavi Mejia M.D. WOODWORKING BELT SANDER: Daniel steinberg MD ANESTHESIA: General. SPECIMEN: Stomach. 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 After discussing all the risks and benefits of procedure and reviewing all the medical history, the patient decided to consent for it. DESCRIPTION OF PROCEDURE: Patient was brought to the operating room, was placed on the operating table in supine position. General endotracheal tube anesthesia was given by the Anesthesia team. The patient was prepped and draped in the standard fashion, time-out was called. Patient and procedure were correct. We accessed the abdominal cavity using a Veress needle at Beltre's point and insufflated up to 17mmHg. Then a supraumbilical 5 mm incision was made. We used the Optiview technique with a 5 mm trocar and a 5 mm camera to access the abdominal cavity. A quick survey of abdominal cavity showed no intra-abdominal organ injury at entry. At this point, the Veress needle was removed and we proceeded to insert our accessory working trocars. We placed a 5 mm incision in the subxiphoid area to place a Kael liver retractor. The left lobe of the liver was retracted, then we proceeded to place the left-sided working trocars. A 5 mm left subcostal along the anterior axillary line and another 5 mm trocar along the midclavicular line. Then the right upper quadrant trocars were placed. One 5mm trocar along the anterior axillary line and a 15mm one along the midclavicular line. Once in the abdominal cavity, we examined the hiatus. No hiatal hernia was identified. We proceed to dissect the angle of His exposing the left ann. Then we proceeded to dissect the greater omentum from the greater curvature of the stomach using the [place] tip LigaSure. We went all the way to the fundus of stomach, releasing all the adhesions and we visualized the left crura again. When it was done, we proceeded to place the 54-Central African bougie down the esophagus into the stomach under direct visualization. When it was in the antrum, we proceeded to staple the stomach in a parallel manner to the greater curvature, creating a sleeve gastrectomy using the [place] stapler. We used green loads, all reinforced with Seamguard all the way from the antrum to the fundus of stomach avoiding to narrow the area next to the incisura angularis. The resected stomach was moved aside over the RUQ and, we proceeded to reinforce the staple line using a running reabsorbable Stratafix 2-[address] from the proximal staple line to the distal staple line, reattaching the greater omentum to the tosha-greater curvature. Staple line was inspected and full hemostasis was achieved and Tesseal was applied to help with that. Then we removed the Nathason liver retractor and proceeded to use the EndoCatch to be able to remove the stomach specimen, avoiding contact with the wound through the the 15 mm right sided trocar and this was closed using a Sridhar-Osvaldo suture with #1 Vicryl at the fascia level. After this, we proceeded to reduce pneumoperitoneum, remove all trocars and irrigate the stomach retrieval site with normal saline. We closed all incisions using aparna. Dry dressings applied to all incisions The patient tolerated very well the procedure, was sent to recovery room extubated. Instrument and lap count was correct x2. documented in this encounter Plan of Treatment Not on file documented as of this encounter Visit Diagnoses Not on filedocumented in this encounter
--- OUTSIDE RECORDS SUMMARY | 2024-05-30 08:31 | XMS_ITS | Encounter Summary ---
Author Organization [employer] In iatives Address [address] [place] [address] Care Team Providers Care Plastic Surgeon Name Role Phone Unavailable Primary Care Provider Unavailabl e Encounter Details Date Type Department Care Team (Late st Contact Info) Description 07/09/2019 Abstract [facility] [address] [place] [address] Cb Renee MD [address] [place] [address] Social History Tobacco Use Types Packs/Day Years [...]
--- OUTSIDE RECORDS SUMMARY | 2024-05-30 08:31 | XMS_ITS | Encounter Summary ---
Author Organization [facility] In iatives Address [address] [place] [address] Care Team Providers Care Mercury Cracking Tester Name Role Phone Unavailable Primary Care Provider Unavailabl e Encounter Details Date Type Department Care Team (Late st Contact Info) Description 01/19/2020 Transcribed Document [facility] [place] Medicine [address] [place] [address] ProviderLaury MD [address] [place] [address] [id number] Social History Tobacco Use Types Packs/Day Years [...] Conversion Note - Laury ProviderMD - 01/19/2020 3:44 AM CDT Consult Phone Call Documentation Entered On: 01/19/2020 9:04 EDT Performed On: 01/19/2020 3:44 EDT by ASPEN CROWDER Phone Call for Consults Consult Phone Call/Page Attempt : First call Physician Requesting Consult : LAZARA KAPLAN MD Physician Requested for Consult : LARRY MARTINES MD-[facility] Physician Covering for Consult : LARRY MARTINES MD-[facility] Date and Time Call Returned : 01/19/2020 9:04 EDT ASPEN CROWDER - 01/19/2020 9:04 EDT Electronically signed by Christopher Byrd Conversion Commercial Loan Collection Officer Cerner at 11/02/2022 10:05 AM CDT documented in this encounter Plan of Treatment Not on file documented as of this encounter Visit Diagnoses Not on filedocumented in this encounter
--- OUTSIDE RECORDS SUMMARY | 2024-05-30 08:31 | XMS_ITS | Encounter Summary ---
Author Organization [employer] In [facility]atives Address [address] [place] [address] Care Team Providers Care Cable Television Line Technician Name Role Phone Unavailable Primary Care Provider Unavailabl e Encounter Details Date Type Department Care Team (Late st Contact Info) Description 01/04/2020 Abstract [facility] [address] [place] [address] Xavi Mejia MD [address] [place] [address] Social History Tobacco Use Types Packs/Day Years [...]
--- OUTSIDE RECORDS SUMMARY | 2024-05-30 08:31 | XMS_ITS | Encounter Summary ---
Author Organization [employer] In [facility] Address [address] [place] [address] Care Team Providers Care Dental Assistant Name Role Phone Unavailable Primary Care Provider Unavailabl e Encounter Details Date Type Department Care Team (Late st Contact Info) Description 01/18/2020 Transcribed Document [facility] [place] Medicine [address] [place] [address] ProviderLaury MD [address] [place] [address] Social History Tobacco Use Types [...] Laury ProviderMD - 01/18/2020 8:28 PM CDT ED Assessment Entered On: 01/18/2020 21:32 EDT Performed On: 01/18/2020 21:30 EDT by JASON FUENTES RN ED Quick Look Assessment Level of Consciousness : Alert, Awake Affect/Behavior : Appropriate, Calm, Cooperative Orientation : Oriented x 4 Skin Temperature : Warm JASON FUENTES RN - 01/18/2020 21:30 EDT ED General-Functional Assess Information Obtained From : Patient Preferred Communication Mode : Verbal Communication Barrier : None Primary Language : Colombian Any Spiritual/Cultural Needs or Requests : No Currently in Unsafe Situation : No JASON FUENTES RN - 01/18/2020 21:30 EDT Social Habits Smoking Status : Former smoker, quit more than 30 days ago Smokeless Tobacco Status : Never Desires Tobacco Cessation Calc : 0 JASON FUENTES RN - 01/18/2020 21:30 EDT Social History (As Of: 01/18/2020 21:32:03 EDT) Tobacco: Former smoker, quit more than [...] 10/03/2019 10:55:25 EDT by Noelle Umanzor Rn) Gastrointestinal ED Gastrointestinal Assessment WDL : WDL with exceptions (Comment: patient had gastric sleeve on . patient has been vomiting. [JASON FUENTES RN - 01/18/2020 21:30 EDT] ) Gastrointestinal Symptoms : Abdominal pain JASON FUENTES RN - 01/18/2020 21:30 EDT documented in this encounter Plan of Treatment Not on file documented as of this encounter Visit Diagnoses Not on filedocumented in this encounter
--- OUTSIDE RECORDS SUMMARY | 2024-05-30 08:31 | XMS_ITS | Encounter Summary ---
Author Organization [facility] In [facility]atives Address [address] [place] [address] Care Team Providers Care Train Station Server Name Role Phone Unavailable Primary Care Provider Unavailabl e Encounter Details Date Type Department Care Team (Late st Contact Info) Description 01/19/2020 Transcribed Document [facility] [place] Family Medicine [address] [place] [address] ProviderLaury MD [address] [place], [place] [id number] Social History Tobacco Use Types Packs/Day Years [...] Conversion Note - Laury ProviderMD - 01/19/2020 4:16 PM CDT Nursing Discharge Summary Entered On: 01/19/2020 16:17 EDT Performed On: 01/19/2020 16:16 EDT by OCTAVIO BRAND RN Discharge Documentation Discharge Date/Time : 01/19/2020 15:45 EDT Transporter Signature : OCTAVIO BRAND RN Patient Disposition, General : Discharge Discharge To : Home with ambulatory/outpatient follow-up Mode Of Departure, General Discharge : Ambulatory Accompanied By, Discharge : Spouse IV Discontinued : Yes Personal Belongings With Patient : Yes Prescriptions Given to Patient : Other: none Discharge Instructions Reviewed With, Opportunity For Questions Given : Patient Patient Education Completed : Yes Teaching Method : Explanation, Printed materials, Teach back method Teaching Evaluation : Verbalizes understanding OCTAVIO BRAND, HERNÁN - 01/19/2020 16:16 EDT Electronically signed by [facility] Conversion Treating Machine Operator Cerner at 11/02/2022 9:56 AM CDT documented in this encounter Plan of Treatment Not on file documented as of this encounter Visit Diagnoses Not on filedocumented in this encounter
--- OUTSIDE RECORDS SUMMARY | 2024-05-30 08:31 | XMS_ITS | Encounter Summary ---
Author Organization [employer] In [facility] Address [address] [place] [address] Care Team Providers Care Auto Inspection Specialist Name Role Phone Unavailable Primary Care Provider Unavailabl e Encounter Details Date Type Department Care Team (Late st Contact Info) Description 08/24/2019 Transcribed Document [facility] [place] Family Medicine [address] [place] [address] ProviderLaury MD [address] [place] [address] Social History Tobacco Use Types Packs/Day Years Used Date Smoking Tobacco: Never Assessed Comments Unknown Sex and Gender Information Value Date Recorded Sex Assigned at Female 01/12/2022 7:15 PM CDT Legal Sex Female 7:15 PM CDT Gender Identity Female 01/12/2022 7:15 PM CDT Sexual Orientation Not on file documented as of this encounter Miscellaneous Notes * Cerner Conversion Note - Historical ProviderMD - 08/24/2019 2:30 PM DIE BAKER AYLINE Matt PreOp Summary Primary Physician: LARRY MARTINES MD-SUR Finalized Date/Time: 08/24/19 10:30:24 Pt. Name: FREDDIE ARCHER FELICIA /Sex: 1990 Female Med Rec #: [id number] Physician: LARRY MARTINES MD-SUR Financial #: [id number] Pt. Type: O Room/Bed: [facility]/ Admit/Disch: 08/24/19 09:42:00 - Institution: [facility] PreOp Case Times Entry 1 In Preop 08/24/19 10:06:00 Ready for Holding n/a Room Patient Ready for 08/24/19 10:30:00 Surgery Patient Out of Preop 08/24/19 10:30:00 Patient Out of n/a Holding Room [facility] PreOp Case Times Audit 08/24/19 10:30:23 End Lathe Operator: GEOVANNA Modifier: [id number] <+> 1 Patient Out of Preop <+> 1 Patient Ready for Surgery Finalized By: ANGE Green RN Document Signatures Signed By: ANGE Green RN 08/24/19 10:30 Electronically signed by [facility] Conversion Quilting Machine Helper Cerner at 11/02/2022 10:00 AM CDT documented in this encounter Plan of Treatment Not on file documented as of this encounter Visit Diagnoses Not on filedocumented in this encounter
--- OUTSIDE RECORDS SUMMARY | 2024-05-30 08:31 | XMS_ITS | Encounter Summary ---
Author Organization [employer] [facility] [employer] Address [address] [place] [address] Care Team Providers Care Principal Scientist Name Role Phone Unavailable Primary Care Provider Unavailabl e Reason for Visit * Auth/Cert Specialty Diagnoses / Procedures Referred By Xochitl burt Referred To Contact Diagnoses Chronic kidney disease, stage IV (severe) (HCC) Chronic kidney disease, Procedures [place] LAP INSERTION TUNNELED INTRAPERITONEAL CATHETER LAPAROSCOPY, WITH PERITONEAL [place] [address] [place] [address] [address] [place] [phone] Phone: tel: fax: Referral ID Status Reason Start Date Expiration Date Visits Re quested Visits Authorized [id number] 09/13/2022 1 1 Encounter Details Date Type Department Care Team (Late st Contact Info) Description 09/23/2022 8:00 AM EST Anesthesia Event [facility] Operating Room [address] [place] [id number] Margarito Escobedo MD [address] [place] [address] Anesthesia Record Procedure Summary Procedure Name Responsible Anesthesiologist Anesthesia Start Time Anesthesia Stop Time LAPAROSCOPIC PD CATHETER PLACEMENT), (Abdomen) Margarito Escobedo MD 09/23/22 0800 09/23/22 0856 Events Date Time Event Comment 09/23/2022 0746 0800 An Start Patient identif ied and chart reviewed. 0800 An Start Data Anesthesia mac abner and monitors checked. 0801 Pre-Induction Eval FDA anest hesia machine pre-use checkout completed. Patient status reassessed prior to start of anesthesia care. 0805 An Induction 0809 An Intubation 0813 Anesthesia Ready 0842 An Extubation 0847 an stop data 0854 Handoff to Receiving I compl eted my handoff to the receiving clinician during which we: 1. Identified the patient. 2. Identified the responsible provider. 3. Reviewed the pertinent medical history. 4. Discussed the surgical course. 5. Reviewed intra-op anesthesia management and issues during anesthesia. 6. Set expectations for post-procedure period. 7. Allowed opportunity for questions and acknowledgement of understanding. 0856 An Stop Meds Name Total dexamethasone (PF) injection 10 mg/mL 8 mg fentaNYL (SUBLIMAZE) injection 100 mcg glycopyrrolate (ROBINUL) injection 0.4 m g lidocaine (XYLOCAINE) injection 1% 100 m g neostigmine (PROSTIGMINE) 1 mg/mL inject ion 2 mg ondansetron (ZOFRAN) injection vial 4 mg propofol (DIPRIVAN) injection 10 mg/mL b olus 200 mg cisatracurium (NIMBEX) injection 2 mg 4 mg ceFAZolin (ANCEF) 2 g in sodium chloride 0.9 % (NS) MBP 50 mL IVPB 2 g sodium chloride 0.9% (NS) infusion 250 m L * Agents Name O2 N2O Air SEVOFLURANE * Blood No blood administrations on file. Lines, Drains, and Airways Type Details Placement Removal Wound 09/23/22; 0849; Inci mikael; Abdomen; Not applicable 09/23/22 0849 by Bc Grullon, HERNÁN Peripheral IV Placement Date: 04/09; Placement Time: 0739; Size: 20 G; Orientation: Anterior, Left, Proximal; Location: Forearm; Insertion attempts: 1; Securement Method: Taped; Removal Date: 09/23/22; Removal Time: 1012 09/23/22 0739 by Nakul Hull RN 09/23/22 1012 by Yue aJcome RN ETT Placement Date 09/23; Placement Time 0809 (created via procedure documentation); Airway Size 7; Airway Cuffed Yes; Removal Date 09/23/22; Removal Time 0846 09/23/22 0809 by Margarito Escobedo MD 09/23/22 0846 by Margarito Escobedo MD documented in this encounter Social History Tobacco Use Types Packs/Day Years [...] AM EST documented as of this encounter OR Notes * Anesthesia Postprocedure Evaluation - Margarito Escobedo MD - 09/23/2022 8:55 AM EST Patient: Crystal Acrher Procedure Summary Date: 09/23/22 Room / Location: [facility] OPERATING ROOM Anesthesia Start: 0800 Anesthesia Stop: Procedure: LAPAROSCOPIC PD CATHETER PLACEMENT), (N/A Abdomen) Diagnosis: Chronic kidney disease, stage IV (severe) (HCC) (Chronic kidney disease,) Surgeons: Cb Renee MD Responsible Provider: Margarito Escobedo MD Anesthesia Type: general ASA Status: 4 Anesthesia Type: general Vitals Value Taken Time BP 163/87 09/23/22 0852 Temp 97.5 09/23/22 0855 Pulse 117 09/23/22 0854 Resp 18 09/23/22 0854 SpO2 100 % 09/23/22 0854 Vitals shown include unvalidated device data. Ht 1.651 m (5' 5 ) Wt 70.8 kg (156 lb) BMI 25.96 kg/m?? Anesthesia Post Evaluation Patient location during evaluation: PACU Patient participation: complete - patient participated Level of consciousness: awake and alert Pain score: 0 Pain management: adequate Airway patency: patent Cardiovascular status: tachycardic and acceptable Respiratory status: acceptable, spontaneous ventilation and face mask Hydration status: acceptable Comments: Phenergan given for nausea Color: [place] Activity: Moves 4 extremities Inotropes/Vasopressors: N/A There were no known complications for this encounter. Margarito Escobedo MD 09/23/2022 8:55 AM EST ONAL LINES AGENT * Anesthesia Procedure Notes - Margarito Escobedo MD - 09/23/2022 8:19 AM EST Associated Order(s): Intubation Intubation Date/Time: 09/23/2022 8:09 AM Urgency: elective General Information and Staff Patient location during procedure: OR Anesthesiologist: Margarito Escobedo MD Performed: anesthesiologist Indications and Patient Condition Indications for airway management: anesthesia and airway protection Spontaneous Ventilation: absent Sedation level: general anesthesia Preoxygenated: yes Patient position: sniffing no Mask difficulty assessment: 2 - vent by mask + OA or adjuvant +/- NMBA no Final Airway Details Final airway type: endotracheal airway Endotracheal tube type: ETT Cuffed: yes Successful intubation technique: direct laryngoscopy Facilitating devices/methods: intubating stylet Endotracheal tube insertion site: oral Blade: Eneida Blade size: #3 ETT size (mm): 7.0 Cormack-Lehane Classification: grade I - full view of glottis Placement verified by: chest auscultation and capnometry Measured from: lips ETT to lips (cm): 21 Number of attempts at approach: 1 Number of other approaches attempted: 0 ONAL LINES AGENT * Anesthesia Preprocedure Evaluation - Margarito Escobedo MD - 09/23/2022 7:41 AM EST ANESTHESIA PREOPERATIVE EVALUATION Patient: Crystal Archer Date/Time: 09/23/22 0850 Procedure: LAPAROSCOPIC PD CATHETER PLACEMENT), (N/A ) - IN 629 , 1 HR (R) Location: [facility] OR [address] [place] [address] OPERATING ROOM Surgeons: Cb Renee MD Vitals: 09/23/22 0600 09/23/22 0721 03/09/23 0724 BP: (!) 222/111 Pulse: 78 Resp: 16 Temp: 97.8 ??F (36.6 ??C) TempSrc: Tympanic SpO2: 100% Weight: 70.8 kg (156 lb 1.6 oz) 70.8 kg (156 lb) Height: 1.651 m (5' 5 ) 1.651 m (5' 5 ) Allergies Allergen Reactions ??? Nsaids (Non-Steroidal Anti-Inflammatory Drug) Current Outpatient Medications Medication Instructions ??? atorvastatin (LIPITOR) 40 mg, Oral, Daily ??? calcitrioL (ROCALTROL) 0.5 mcg, Oral, Daily ??? calcium acetate 667 mg Tab Oral ??? carvediloL (COREG) 25 mg, Oral, 2 times daily with breakfast and dinner ??? insulin aspart U-100 (NovoLOG) 100 unit/mL (3 mL) InPn Subcutaneous, 3 times daily before meals ??? loratadine (CLARITIN) 10 mg, Oral, Daily ??? NIFEdipine (ADALAT CC) 60 mg, Oral, Daily ??? sodium bicarbonate 650 MG tablet 1 tablet, Oral, 4 times daily Inpatient Medications: Current Outpatient Medications Medication Instructions ??? atorvastatin (LIPITOR) 40 mg, Oral, Daily ??? calcitrioL (ROCALTROL) 0.5 mcg, Oral, Daily ??? calcium acetate 667 mg Tab Oral ??? carvediloL (COREG) 25 mg, Oral, 2 times daily with breakfast and dinner ??? insulin aspart U-100 (NovoLOG) 100 unit/mL (3 mL) InPn Subcutaneous, 3 times daily before meals ??? loratadine (CLARITIN) 10 mg, Oral, Daily ??? NIFEdipine (ADALAT CC) 60 mg, Oral, Daily ??? sodium bicarbonate 650 MG tablet 1 tablet, Oral, 4 times daily ROS/MED HX Reviewed: Patient summary reviewed, Nursing notes reviewed, Family history of anesthetic complications reviewed, Allergies reviewed and ECG reviewed No history of anesthetic complications Pulmonary: Comment: Former smoker, quit Apr 2022 Cardiovascular: (+) hypertension, , (-) angina GI/Hepatic/Renal: (+) renal disease ESRD, Neuro/Psych: - negative ROS Endo/Other: (+) diabetes mellitus using insulin, Comments: Hyperparathyroid Hemo/Onc: no IV drug use no alcohol abuse Past Surgical History: Procedure Laterality Date ??? BIOPSY,KIDNEY ??? SECTION ??? GASTRIC BYPASS ??? TUBAL LIGATION Echo Results (last 7 days) No results found for the last 168 hours. No results found for: CBCPLATELET, CHEM6, INR Last EKG Result No resulted procedures found. Clinical Information reviewed: Physical Exam Airway Mallampati: I TM distance: >3 FB Neck ROM: full Cardiovascular - normal exam Dental - normal exam Pulmonary - normal exam Abdominal Anesthesia Plan ASA 4 general The patient is not a current smoker. intravenous induction Anesthetic plan and risks discussed with patient. ONAL LINES AGENT ONAL LINES AGENT documented in this encounter Plan of Treatment Not on file documented as of this encounter Procedures Procedure Name Priority Date/Time Associated Diagnosis Comments ANESTHESIA INTUBATION Routine 09/23/2022 8:09 AM EST documented in this encounter Results * AN SINGLE LUMEN INTUBATION (09/23/2022 8:09 AM EST) Narrative Margarito Escobedo MD - 09/23/2022 8:09 AM EST Margarito Escobedo MD ? 09/23/2022 ??8:20 AM Intubation Date/Time: 09/23/2022 8:09 AM Urgency: elective General Information and Staff Patient location during procedure: OR Anesthesiologist: Margarito Escobedo MD Performed: anesthesiologist Indications and Patient Condition Indications for airway management: anesthesia and airway protection Spontaneous Ventilation: absent Sedation level: general anesthesia Preoxygenated: yes Patient position: sniffing no Mask difficulty assessment: 2 - vent by mask + OA or adjuvant +/- NMBA no Final Airway Details Final airway type: endotracheal airway Endotracheal tube type: ETT Cuffed: yes Successful intubation technique: direct laryngoscopy Facilitating devices/methods: intubating stylet Endotracheal tube insertion site: oral Blade: Eneida Blade size: #3 ETT size (mm): 7.0 Cormack-Lehane Classification: grade I - full view of glottis Placement verified by: chest auscultation and capnometry Measured from: lips ETT to lips (cm): 21 Number of attempts at approach: 1 Number of other approaches attempted: 0 us Margarito Escobedo MD ANESTHESIA ORDERABLES Final Res ult documented in this encounter Visit Diagnoses Not on filedocumented in this encounter Administered Medications Inactive Administered Medications - up to 3 most recent administrations Medication Order MAR Action Action Date Dose Rate Site ceFAZolin (ANCEF) 2 g in sodium chloride 0.9 % (NS) MBP 50 mL IVPB 2 g Once, intravenous, Administer over 30 Minutes, On Emma 09/23/22 at 0800, For 1 dose, Administer within 60 minutes of incision or procedure start., Pre-op, Please choose an indication: Surgical Prophylaxis New Bag 09/23/2022 8:12 AM EST 2 g cisatracurium (NIMBEX) bolus injection As needed, intravenous, Starting on Emma 09/23/22 at 0812, Anesthesia Intra-op Given 09/23/2022 8:12 AM EST 4 mg dexAMETHasone sodium phos (PF) injection As needed, intravenous, Starting on Emma 09/23/22 at 0818, Anesthesia Intra-op Given 09/23/2022 8:18 AM EST 8 mg fentaNYL (SUBLIMAZE) injection As needed, intravenous, Starting on Emma 09/23/22 at 0812, Anesthesia Intra-op Given 09/23/2022 8:12 AM EST 100 mcg glycopyrrolate (ROBINUL) injection As needed, intravenous, Starting on Emma 09/23/22 at 0812, Anesthesia Intra-op Given 09/23/2022 8:38 AM EST 0.2 mg Given 09/23/2022 8:12 AM EST 0.2 mg lidocaine (XYLOCAINE) injection 1% As needed, intravenous, Starting on Emma 09/23/22 at 0812, Anesthesia Intra-op Given 09/23/2022 8:22 AM EST 17 mg Given 09/23/2022 8:12 AM EST 83 mg neostigmine methylsulfate (PROSTIGMINE) injection As needed, intravenous, Starting on Emma 09/23/22 at 0837, Anesthesia Intra-op Given 09/23/2022 8:37 AM EST 2 mg ondansetron PF (ZOFRAN) injection As needed, intravenous, Starting on Emma 09/23/22 at 0818, Anesthesia Intra-op Given 09/23/2022 8:18 AM EST 4 mg propofol (DIPRIVAN) injection 10 mg/mL bolus As needed, intravenous, Starting on Emma 09/23/22 at 0812, Anesthesia Intra-op Given 09/23/2022 8:22 AM EST 34 mg Given 09/23/2022 8:12 AM EST 166 mg sodium chloride 0.9% (NS) infusion Continuous PRN, intravenous, Starting on Emma 09/23/22 at 0801, Anesthesia Intra-op New Bag 09/23/2022 8:01 AM EST documented in this encounter
--- OUTSIDE RECORDS SUMMARY | 2024-05-30 08:31 | XMS_ITS | Encounter Summary ---
Author Organization [employer] Address [address] [place] [address] Care Team Providers Care Adjunct Instructor In Economics Name Role Phone Unavailable Primary Care Provider Unavailabl e Encounter Details Date Type Department Care Team (Late st Contact Info) Description 01/19/2020 Transcribed Document [facility] [place] Family Medicine [address] [place] [address] ProviderLaury MD [address] [place], [place] [id number] Social History Tobacco Use Types Packs/Day Years [...] Conversion Note - Laury ProviderMD - 01/19/2020 12:14 AM CDT ED Event Note Entered On: 01/19/2020 0:16 EDT Performed On: 01/19/2020 0:14 EDT by JASON FUENTES, HELIUM ARC WELDER Event Note ED Event Date/Time : 01/19/2020 0:14 EDT ED Description of Event : patient states the glucose reading on her insulin pump is 49. patient was given d50 and it came up. Blanca Nj made aware JASON FUENTES, HERNÁN - 01/19/2020 0:14 EDT documented in this encounter Plan of Treatment Not on file documented as of this encounter Visit Diagnoses Not on filedocumented in this encounter
--- OUTSIDE RECORDS SUMMARY | 2024-05-30 08:31 | XMS_ITS | Encounter Summary ---
Author Organization [employer] Address [address] [place] [address] Care Team Providers Care Color Dipper Name Role Phone Unavailable Primary Care Provider Unavailabl e Encounter Details Date Type Department Care Team (Late st Contact Info) Description 01/19/2020 Historic Encounter [facility] Radiology [address] [place] [address] Maikol Leslie MD [facility] [place] [address] Social History Tobacco Use Types Packs/Day Years [...] Comments CT ABDOMEN/PELVIS WITHOUT IV CONTRAST STAT 01/19/2020 1:05 AM EDT documented in this encounter Results * CT ABDOMEN/PELVIS WITHOUT IV CONTRAST (01/19/2020 1:05 AM EDT) Anatomical Region Laterality Modality Abdomen, Pelvis Computed Tomogra phy 01/19/2020 1:05 AM EDT Narrative 01/19/2020 11:[address] ABDOMEN AND PELVIS WITH ORAL CONTRAST HISTORY: Gastric sleeve surgery January 04, 2020, dehydration and weakness COMPARISON: None TECHNIQUE: Axial CT images of the abdomen and pelvis were obtained with oral contrast only. Coronal reformatted images were also obtained.This study was performed with techniques to keep radiation doses as low as reasonably achievable, (ALARA). Individualized dose reduction techniques using automated exposure control or adjustment of mA and/or kV according to the patient size were employed. FINDINGS: ABDOMEN: The lung bases are clear. ??There is no evidence of renal stone or hydronephrosis. ??Postoperative changes are seen from gastric sleeve procedure. ??The liver, spleen and pancreas have an unremarkable unenhanced appearance. ??No mass or adenopathy is seen. ??No inflammatory process is identified. No abnormal fluid collection is seen. There is no evidence of bowel obstruction. PELVIS: ??Images of the pelvis reveal no evidence of ureteral dilatation or ureteral stone. No mass or abnormal fluid collection is identified. The appendix is unremarkable. IMPRESSION: Postoperative changes in the abdomen. No mass or inflammatory process. ? Images reviewed, interpreted, and dictated by Maikol Leslie MD Procedure Note Maikol Leslie MD - 11/02/2022 CT ABDOMEN AND PELVIS WITH ORAL CONTRAST HISTORY: Gastric sleeve surgery January 04, 2020, dehydration and weakness COMPARISON: None TECHNIQUE: Axial CT images of the abdomen and pelvis were obtained with oral contrast only. Coronal reformatted images were also obtained.This study was performed with techniques to keep radiation doses as low as reasonably achievable, (ALARA). Individualized dose reduction techniques using automated exposure control or adjustment of mA and/or kV according to the patient size were employed. FINDINGS: ABDOMEN: The lung bases are clear. There is no evidence of renal stone or hydronephrosis. Postoperative changes are seen from gastric sleeve procedure. The liver, spleen and pancreas have an unremarkable unenhanced appearance. No mass or adenopathy is seen. No inflammatory process is identified. No abnormal fluid collection is seen. There is no evidence of bowel obstruction. PELVIS: Images of the pelvis reveal no evidence of ureteral dilatation or ureteral stone. No mass or abnormal fluid collection is identified. The appendix is unremarkable. IMPRESSION: Postoperative changes in the abdomen. No mass or inflammatory process. Images reviewed, interpreted, and dictated by Maikol Leslie MD Maikol Leslie MD IMG CT ORDERABLES Final Result documented in this encounter Visit Diagnoses Not on filedocumented in this encounter
--- OUTSIDE RECORDS SUMMARY | 2024-05-30 08:31 | XMS_ITS | Encounter Summary ---
Author Organization [employer] Address [address] [place] [address] Care Team Providers Care Director Of Diversity And Inclusion Name Role Phone Unavailable Primary Care Provider Unavailabl e Encounter Details Date Type Department Care Team (Late st Contact Info) Description 08/24/2019 Transcribed Document [facility] [place] [address] [place] [address] ProviderLaury MD [address] [place] [id number] Social History Tobacco Use Types Packs/Day [...] Conversion Note - Historical ProviderMD - 08/24/2019 11:11 AM PATIENT SUPPORT REPRESENTATIVE ESME Gutierrez IntraOp Summary Primary Physician: LARRY MARTINES MD-SUR Finalized Date/Time: 08/24/19 12:55:12 Pt. Name: BAHMAN FREDDIE FELICIA /Sex: 1990 Female Med Rec #: [id number] Physician: LARRY MARTINES MD-SUR Financial #: [id number] Pt. Type: O Room/Bed: [facility] [place] Admit/Disch: 08/24/19 09:42:00 - Institution: [facility] [facility] - Case Attendance Entry 1 Entry 2 Entry 3 Case Attendee LARRY MARTINES Childress, TOBI J, RN ELLIOTT MOURA TECH MD-SUR Role Performed Surgeon/Proceduralist, General Internal Medicine Physician, First Scrub, First First Time In 08/24/19 11:09:00 08/24/19 11:09:00 08/24/19 11:09:00 Time Out 08/24/19 11:15:00 08/24/19 11:15:00 08/24/19 11:15:00 Procedure Gastric Biopsy Esophagogastroduodenosco Esophagogastroduodenosco py, Gastric Biopsy py, Gastric Biopsy Other Attendee Superficial Wound Closed By: Last Modified By: ANGE Green RN Childress, TOBI J, RN Childress, TOBI J, RN 08/24/19 11:14:47 08/24/19 11:14:47 08/24/19 11:14:47 Entry 4 Case Attendee MARGRET MCCULLOUGH CRYPTOLOGIC LINGUIST Role Performed CRYPTOLOGIC LINGUIST/Nurse Machinery Repair Maintenance Supervisor Time In 08/24/19 11:09:00 Time Out 08/24/19 11:15:00 Procedure Esophagogastroduodenosco py, Gastric Biopsy Other Attendee Superficial Wound Closed By: Last Modified By: ANGE Green RN 08/24/19 11:14:47 [facility] [place] [facility] - Case Attendance Audit 08/24/19 11:14:47 Yard Supervisor: HOLMMARCIA Modifier: HOLMESTJ 1 <+> Time Out 1 <*> Procedure Gastric Biopsy 2 <+> Time Out 2 <*> Procedure Esophagogastroduodenoscopy, Gastric Biopsy 3 <+> Time Out 3 <*> Procedure Esophagogastroduodenoscopy, Gastric Biopsy 4 <+> Time Out 4 <*> Procedure Esophagogastroduodenoscopy, Gastric Biopsy 08/24/19 11:12:38 Yard Supervisor: HOLMESTJ Modifier: HOLMESTJ <+> 1 Procedure 2 <*> Procedure Esophagogastroduodenoscopy 3 <*> Procedure Esophagogastroduodenoscopy 4 <*> Procedure Esophagogastroduodenoscopy 08/24/19 11:11:44 Yard Supervisor: HOLMESTJ Modifier: HOLMESTJ 2 <+> Time In 2 <*> Procedure Esophagogastroduodenoscopy 3 <+> Time In 3 <*> Procedure Esophagogastroduodenoscopy 4 <+> Time In 4 <*> Procedure Esophagogastroduodenoscopy [facility] - Case Times Entry 1 Patient In Room Time 08/24/19 11:09:00 Out Room Time 08/24/19 11:15:00 Anesthesia Start Time 08/24/19 11:09:00 Stop Time 08/24/19 11:15:00 Anesthesia Ready 08/24/19 11:09:00 Surgery / Procedure Times Start Time 08/24/19 11:11:00 Stop Time 08/24/19 11:13:00 Last Modified By: ANGE Green RN 08/24/19 11:09:01 [facility] - Case Times Audit 08/24/19 11:13:59 Yard Supervisor: HOLMESTJ Modifier: HOLMESTJ <+> 1 Out Room Time <+> 1 Stop Time <+> 1 Stop Time 08/24/19 11:11:59 Yard Supervisor: HOLMESTJ Modifier: HOLMESTJ <+> 1 Start Time [facility] - Cultures and Spec Summary Entry 1 Cultrures and Specimens Specimen Ordered: Yes Last Modified By: ANGE Green RN 08/24/19 11:14:38 [facility] - Delays Entry 1 Delay Reason Other Duration 0 Minute(s) Comment NO DELAY Last Modified By: ANGE Green RN 08/24/19 11:09:48 [facility] - Delays Audit 08/24/19 11:09:48 Yard Supervisor: JOHNATHANESTJ Modifier: HOLMESTJ <+> 1 Comment [facility] - Departure from OR Entry 1 Integumentary Assessment Integumentary WDL Assessment WDL Transfer/Handoff Transfer to PACU Phase I Handoff Method Bedside/Face to face Handoff Reported to ANTONIO ALEGRE RN Post-op Transport Stretcher/Gurney Via Patient Transport ANGE Green RN, Accompanied by MARGRET MCCULLOUGH CRNA Last Modified By: ANGE Green RN 08/24/19 11:14:30 [facility] - Endoscopy Details Entry 1 Abdomen Procedure Soft, Non-Tender Assessment Procedure Abdomen 08/24/19 11:09:00 Assessment D/T Radio Frequency Ablation Last Modified By: ANGE Green RN 08/24/19 11:09:51 [facility] [place] [facility] - Fire Risk Assessment Entry 1 Fire Info Surgical Site or 1- Yes Incision Above the Xyphoid Open O2 Source 1- Yes (Mask or Cannula) Available Ignition 1- Yes (ESU, Laser, Light Source) Fire Risk 3 Assessment Score Fire Score Fire Risk Yes Assessment Complete Fire Risk ANGE Green seat cover installer Verified By Fire Risk 08/24/19 11:10:00 Assessment Verified Date/Time Fire Risk High Risk Protocol Yes Implemented Standard Fire Yes Safety Precautions Followed Last Modified By: ANGE Green RN 08/24/19 11:10:04 [facility] [place] Endo - General Case Test Engine Evaluator 1 Case Information OR Endo 01 E Case Level 1 Room Verified Yes Wound Class II - Clean-Contaminated Specialty SN General Anesthesia Type MAC ASA Class 3 Diagnosis Preop Diagnosis GERD Postop Same As Preop No Postop Diagnosis normal EGD Last Modified By: ANGE Green RN 08/24/19 11:11:13 [facility] - General Case Data Audit 08/24/19 11:14:21 Yard Supervisor: GEOVANNA Modifier: HOLMESTJ <+> 1 Postop Diagnosis [facility] - Intraoperative Assessment Entry 1 Valid History / Yes Physical in Chart Preoperative Yes Checklist Reviewed/Evaluated Allergies Reviewed Yes Patient is Latex No Sensitive Level of WDL Consciousness (WDL = Alert, Oriented to Person, Place, and Time) Present Upon IVs, ECG monitored Arrival to OR Prosthetic/Assistive Insulin pump Devices Last Modified By: ANGE Green RN 08/24/19 11:11:51 [facility] - Intraoperative Assessment Audit 08/24/19 12:55:06 Yard Supervisor: GEOVANNA Modifier: HOLMESTJ <+> 1 Prosthetic/Assistive Devices [facility] [place] [facility] - Intraoperative Equipment Entry 1 Type Scope Equipment Intraop Monitoring Electrocardiogram Three lead placement (ECG) Electrode Placement Blood Pressure Arm, left upper Location Pulse Oximeter Hand, right Probe Site Antiembolic Devices Scopes Flexible Endoscopes Gastroscope Used Scope Serial [id number] Number/Identificatio n Number Photo/Video Documentation Photo Yes Video No Last Modified By: ANGE Green RN 08/24/19 11:13:37 [facility] - Patient Positioning Entry 1 Procedure Esophagogastroduodenosco py, Gastric Biopsy Body Position Lateral, right side up Left Arm Position Resting at side Right Arm Position Resting at side Left Leg Position Other Right Leg Position Other Position Comments Right leg over left leg uncrossed Feet Uncrossed Yes Pressure Points Yes Checked Positioned By ANGE Green RN, MARGRET MCCULLOUGH CRNA Position Verified Positioning Yes Verified by Anesthesia Positioning Yes Verified by Surgeon Last Modified By: ANGE Green RN 08/24/19 11:10:18 [facility] - Patient Positioning Audit 08/24/19 11:12:40 Yard Supervisor: JOHNATHANESTJ Modifier: HOLMESTJ 1 <*> Procedure Esophagogastroduodenoscopy [facility] - Sign In Entry 1 Patient, Site, Yes Procedure Identified Surgical Consent Yes Confirmed Relevant Surgical Yes Documents Available Surgical Site N/A Marked by person performing procedure Allergies No Airway Hypothermia Risk No Warming Measures No Taken Last Modified By: ANGE Green RN 08/24/19 11:11:24 [facility] - Sign Out Entry 1 RN Confirmation Surgical Yes Procedure(s) Identified Instrument, Sponge N/A and Sharps Counts Correct/Documented Equipment Problems N/A Documented Specimen Labeled Yes Correctly Urinary Catheter N/A Documented in IView Safety Checklist Yes Elements Complete? RN Sign Out ANGE Green RN Signature RN Sign Out 08/24/19 11:15:00 Signature Date/Time Plan of Care Outcome - Fire Risk OUTCOME STATEMENT: Goal met Patient is free from injury related to surgical fire Plan of Care Outcome - Pt Positioning OUTCOME STATEMENT: Goal met Absence of signs and symptoms of positioning injury. Plan of Care Outcome - Skin Prep OUTCOME STATEMENT: Goal met Intraoperative care is consistent with measures to prevent infection Plan of Care Outcome - Xray/Images OUTCOME STATEMENT: N/A Absence of observable signs or symptoms of radiation injury Plan of Care Outcome - Counts OUTCOME STATEMENT: N/A Absence of signs and symptoms of injury related to extraneous objects Last Modified By: ANGE Green RN 08/24/19 11:14:13 [facility] - Sign Out Audit 08/24/19 11:14:13 Yard Supervisor: JOHNATHANESTJ Modifier: HOLMESTJ <+> 1 RN Sign Out Signature Date/Time <+> 1 Urinary Catheter Documented in IView [facility] - Surgical Procedures Entry 1 Entry 2 Procedure Esophagogastroduodenosco Gastric Biopsy py Modifiers Additional Procedure Description Primary Procedure Yes No Primary Surgeon LARRY MARTINES, LARRY MARTINES MD-BRANDEE -BRANDEE Start 08/24/19 11:11:00 08/24/19 11:11:00 Stop 08/24/19 11:13:00 08/24/19 11:13:00 Physician States Cecum Reached Anesthesia Type MAC MAC Specialty SN General SN General Wound Class II - Clean-Contaminated II - Clean-Contaminated Last Modified By: ANGE Green RN Childress, TOBI J, RN 08/24/19 11:12:34 08/24/19 11:12:34 [facility] [place] [facility] - Surgical Procedures Audit 08/24/19 11:14:04 Yard Supervisor: GEOVANNA Modifier: HOLMESTJ <+> 1 Stop <+> 2 Stop [facility] [place] [facility] - Time Out Entry 1 Procedure to be Esophagogastroduodenosco Performed py, Gastric Biopsy Time Out Time Out Pause Time 08/24/19 11:09:00 All activity Yes suspended (unless life threatening emergency) Team Verbally Correct patient Confirms Information identity, Correct side and site are marked, Consent form is present and accurate, Agreement on the procedure to be done, Correct patient position Antibiotic N/A Prophylaxis Administered Or In Progress Within the Last 60 Minutes Beta Renae N/A Administered Venous N/A Thromboembolism Prophylaxis Required Anticipated Critical Events Surgeon None expected Last Modified By: ANGE Green RN 08/24/19 11:12:41 [facility] [place] [facility] - Time Out Audit 08/24/19 11:12:41 Yard Supervisor: JOHNATHANESTGiacomo Modifier: HOLMESTJ 1 <*> Procedure to be Performed Esophagogastroduodenoscopy 08/24/19 11:12:26 Yard Supervisor: JOHNATHANESTJ Modifier: HOLMESTJ 1 <*> Beta Renae Administered N/A 1 <+> All activity suspended (unless life threatening emergency) 1 <*> Venous Thromboembolism Prophylaxis N/A Required 1 <*> Antibiotic Prophylaxis Administered N/A Or In Progress Within the Last 60 Minutes 1 <*> Surgeon None expected 1 <+> Time Out Pause Time 1 <*> Procedure to be Performed Esophagogastroduodenoscopy 1 <+> Team Verbally Confirms Information Case Comments <None> Finalized By: [place], ANGE J, RN Document Signatures Signed By: ANGE Green RN 08/24/19 11:14 ANGE Green RN 08/24/19 12:55 Unfinalized History Date/Time Username Reason for Unfinalizing Freetext Reason for Unfinalizing 08/24/19 12:54 GEOVANNA Correct Documentation Electronically signed by [facility] Conversion Laborer [employer]ner at 11/02/2022 10:11 AM CDT documented in this encounter Plan of Treatment Not on file documented as of this encounter Visit Diagnoses Not on filedocumented in this encounter
--- OUTSIDE RECORDS SUMMARY | 2024-05-30 08:31 | XMS_ITS | Encounter Summary ---
Author Organization [employer] Address [address] [place] [address] Care Team Providers Care A&P Technician Name Role Phone Unavailable Primary Care Provider Unavailabl e Encounter Details Date Type Department Care Team (Late st Contact Info) Description 01/04/2020 Transcribed Document [facility] [place] [address] [place] [address] ProviderLaury MD [address] [place] [address] Social History Tobacco Use Types [...] Conversion Note - Laury ProviderMD - 01/04/2020 10:26 PM CDT Education-Diabetes Topics Entered On: 01/05/2020 7:37 EDT Performed On: 01/04/2020 22:26 EDT by Mickey Fuentes, RN Teaching/Learning Assessment Barriers To Learning : None evident Learning Style Preferences Patient : Verbal explanation Learning Style Preferences Family : None Mickey Fuentes, RN - 01/05/2020 7:36 EDT Education, Diabetes Diabetes Education Grid Blood Glucose Monitoring : Verbalizes understanding Insulin Administration : Verbalizes understanding Mickey Fuentes RN - 01/05/2020 7:36 EDT documented in this encounter Plan of Treatment Not on file documented as of this encounter Visit Diagnoses Not on filedocumented in this encounter
--- OUTSIDE RECORDS SUMMARY | 2024-05-30 08:31 | XMS_ITS | Encounter Summary ---
Author Organization [employer] Address [address] [place] [address] Care Team Providers Care Pocketed Spring Machine Operator Name Role Phone Unavailable Primary Care Provider Unavailabl e Reason for Visit * Auth/Cert Specialty Diagnoses / Procedures Referred By Xochitl burt Referred To Contact Diagnoses Chronic kidney disease, stage IV (severe) (HCC) Chronic kidney disease, Procedures HI LAP INSERTION TUNNELED INTRAPERITONEAL CATHETER LAPAROSCOPY, WITH PERITONEAL DIALYSIS CATHETER INSERTION Cb Renee MD [address] [place] [address] Phone: tel: fax: Referral ID Status Reason Start Date Expiration Date Visits Re quested Visits Authorized [id number] 09/13/2022 1 1 Encounter Details Date Type Department Care Team (Late st Contact Info) Description 09/23/2022 6:29 AM EST - 09/23/2022 10:31 AM EST Hospital Encounter [facility] Operating Room [address] [place] [address] Cb Renee MD [address] [place] [address] Discharge Disposition: Home or Self Care Social [...] Sign Reading Time Taken Comments Blood Pressure 150/69 09/23/2022 10:00 AM EST Pulse 78 09/23/2022 10:00 AM EST Temperature 36.4 ??C (97.5 ??F) 09/23/2022 9:49 AM ES T Respiratory Rate 20 09/23/2022 10:00 AM EST Oxygen Saturation 99% 09/23/2022 10:00 AM EST Inhaled Oxygen Concentration - - Weight 70.8 kg (156 lb) 09/23/2022 7:21 AM EST Height 165.1 cm (5' 5 ) 09/23/2022 7:21 AM EST Body Mass Index 25.96 09/23/2022 7:21 AM EST documented in this encounter Discharge Instructions * Appointments* Yue Jacome RN - 09/23/2022 9:27 AM EST No shower Keep incision(s) clean, dry, and intact No lifting over 10 lbs til otherwise directed by Dr. Zacarias NO strenuous activity Gradually resume regular diet Notify Dr. Zacarias of signs of infection such as fever greater than 100.4, chills, redness/warmth around incision(s), foul smelling green/yellow/white discharge from incisions (some clear fluid/pink tinged fluid is normal) or with any other concerns you may have No driving for 24 hours or while taking narcotics No drinking alcohol for 24 hours or while taking narcotics S SAFETY ENGINEER * Attachments The following attachments cannot be sent through Care Everywhere. * General Anesthesia Adult Care After (Ivorian) * Peritoneal Dialysis Catheter Placement Care After (Ivorian) * Acetaminophen; Hydrocodone Capsules or Tablets (Ivorian) documented in this encounter Medications at Time [...] tablet by mouth 4 (four) times daily. HYDROcodone-acet aminophen (NORCO 5-325) 5-325 mg per tablet Take 1 tablet by mouth every 6 (six) hours as needed for up to 4 days. Max Daily Amount: 4 tablets 15 tablet 09/23/2022 09/28/19 23 documented as of this encounter H&P Notes * Mare Monteror, COMMERCIAL KITCHEN SERVICE TECHNICIAN - 09/23/2022 8:00 AM EST HPI History Of Present Illness Crystal Archer is a 32 y.o. female presenting with renal decline for 5 years, needs dialysis access. Pt is having Lap PD cath placement with Dr. Renee. Past 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 She has a past medical history of Allergies, Anemia, CKD (chronic kidney disease), Diabetes (HCC), Hyperkalemia, Hyperlipidemia, Hyperparathyroidism (HCC), and Hypertension. Surgical History She has a past surgical history that includes section; Tubal ligation; Gastric bypass; andBIOPSY,KIDNEY. Social History She reports that she quit smoking about 5 months ago. She has never used smokeless tobacco. She reports previous alcohol use. She reports that she does not use drugs. Family History Her family history includes Alcohol abuse in her father and mother; Bipolar disorder in her father,maternal grandmother, and mother; Cancer in her maternal grandmother; Depression in her father, maternal grandmother, and mother; Diabetes in her mother; Hyperlipidemia in her father and mother; Hypertension in her father and mother; Stroke in her mother. Allergies Nsaids (Non-Steroidal Anti-Inflammatory Drug) Medications Current Outpatient Medications Medication Instructions ??? atorvastatin [...] tablet 1 tablet, Oral, 4 times daily Review of Systems Review of Systems Constitutional: Negative. HENT: Negative. Eyes: Negative. Respiratory: Negative. Cardiovascular: Negative. Gastrointestinal: Negative. Endocrine: Negative. Genitourinary: Renal failure Musculoskeletal: Negative. Skin: Negative. Allergic/Immunologic: Negative. Neurological: Negative. Hematological: Negative. Psychiatric/Behavioral: Negative. Last Recorded Vitals Blood pressure (!) 222/111, pulse 78, temperature 97.8 ??F (36.6 ??C), temperature source Tympanic,resp. rate 16, height 1.651 m (5' 5 ), weight 70.8 kg (156 lb), SpO2 100 %. Physical Exam Constitutional: Appearance: Normal appearance. HENT: Head: Normocephalic. Cardiovascular: Rate and Rhythm: Normal rate and regular rhythm. Pulses: Normal pulses. Heart sounds: Normal heart sounds. No murmur heard. No friction rub. No gallop. Pulmonary: Effort: Pulmonary effort is normal. Breath sounds: Normal breath sounds. Musculoskeletal: General: Normal range of motion. Cervical back: Normal range of motion and neck supple. Skin: General: Skin is warm and dry. Comments: CGM LUE Neurological: General: No focal deficit present. Mental Status: She is alert and oriented to person, place, and time. Psychiatric: Mood and Affect: Mood normal. Behavior: Behavior normal. Diagnostic Results Admission on 09/23/2022 Component Date Value Ref Range Status ??? POC, URINE HCG 09/23/2022 Negative Negative Final ??? INTERNAL QC (VALID/INVALID) 09/23/2022 Valid Final ??? Lot Number 09/23/2022 [id number] Final ??? Expiration Date 09/23/2022 09/15/2023 Final ??? POC Potassium 09/23/2022 4.5 3.5 - 4.9 mmol/L Final ??? POC-GLUCOSE 09/23/2022 87 70 - 105 mg/dL Final ??? POC-EGFR 09/23/2022 8 mL/min/1.73M2 Final ??? Wedding Consultant 09/23/2022 [id number] Final ??? POC-Creatinine 09/23/2022 6.3 (A) 0.6 - 1.3 mg/dL Final No image results found. Assessment & Plan Renal failure DM Hyperparathyroidism Anemia HTN HLD Hyperkalemia Pt to proceed with surgery, DC home today. Electronically signed by: Mare Rodgers APRN, 09/23/2022 at 8:32 AM Cosigned by Cb Renee MD at 09/23/2022 2:25 PM EST S SAFETY ENGINEER S SAFETY ENGINEER Associated attestation - Cb Renee MD - 09/23/2022 1:25 PM MINES SAFETY ENGINEER Patient seen and examined by myself. Agree with note per nurse practitioner. * Cb Renee MD - 09/22/2022 3:48 PM EST My Last Relevant Note Signed ??? Encounter Date: 09/13/2022 ?? Expand All Collapse All Subjective: Chief Complaint Patient presents with ??? New Patient ? peritoneal dialysis catheter evaluation ? Crystal Archer is a 32 y.o. female here for a peritoneal dialysis catheter evaluation. She states she is in end stage renal failure. She has not had a PD catheter before. She does not do dialysis. Abdominal surgeries consist of gastric bypass, , and tubal. ?? Medications Taking[]Expand by Default Outpatient Medications Marked as Taking for the 09/13/22 encounter (Office Visit) with Cb Renee MD Medication Sig Dispense Refill ??? atorvastatin (LIPITOR) 40 MG tablet Take 40 mg by mouth daily. ? calcitrioL (ROCALTROL) 0.5 MCG capsule Take 0.5 mcg by mouth daily. ? carvediloL (COREG) 25 MG tablet Take 25 mg by mouth 2 (two) times daily with breakfast and dinner. ? insulin aspart U-100 (NovoLOG) 100 unit/mL (3 mL) InPn Inject subcutaneously 3 (three) times daily before meals. ? loratadine (CLARITIN) 10 mg tablet Take 10 mg by mouth daily. ? NIFEdipine (ADALAT CC) 60 MG 24 hr tablet Take 60 mg by mouth daily. ? sodium bicarbonate 650 MG tablet Take 1 tablet by mouth 4 (four) times daily. ? Allergies Allergen Reactions ??? Nsaids (Non-Steroidal Anti-Inflammatory Drug) ? Past Surgical History: Procedure Laterality Date ??? SECTION ? GASTRIC BYPASS ? TUBAL LIGATION ? Active Ambulatory Problems Diagnosis Date Noted ??? No Active Ambulatory Problems ?? Resolved Ambulatory Problems Diagnosis Date Noted ??? No Resolved Ambulatory Problems ?? Past 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: Diagnosis Date ??? Allergies ? Anemia ? CKD (chronic kidney disease) ? Diabetes (HCC) ? Hyperlipidemia ? Hyperparathyroidism (HCC) ? Hypertension ? Social History ?? Socioeconomic History ??? Marital status: ? Spouse name: Not on file ??? Number of children: Not on file ??? Years of education: Not on file ??? Highest education level: Not on file Occupational History ??? Not on file Tobacco Use ??? Smoking status: Former Smoker ??? Smokeless tobacco: Never Used Substance and Sexual Activity ??? Alcohol use: Not Currently ??? Drug use: Never ??? Sexual activity: Not on file Other Topics Concern ??? Not on file Social History Narrative ??? Not on file ?? Social Determinants of Health ?? Financial Resource Strain: Not on file Food Insecurity: Not on file Transportation Needs: Not on file Physical Activity: Not on file Stress: Not on file Social Connections: Not on file Intimate Partner Violence: Not on file ? Review of Systems Constitutional: Negative. HENT: Positive for congestion, ear discharge, sinus pressure and sinus pain. Eyes: Negative. Respiratory: Negative. Cardiovascular: Negative. Gastrointestinal: Positive for constipation. Endocrine: Negative. Genitourinary: Negative. Musculoskeletal: Negative. Skin: Negative. Allergic/Immunologic: Negative. Neurological: Negative. Hematological: Negative. Psychiatric/Behavioral: Negative. ?? \ Objective: BP (!) 146/80 (BP Location: Right arm, Patient Position: Sitting) Pulse 78 Ht 1.651 m (5' 5 ) Wt 69.4 kg (153 lb) BMI 25.46 kg/m?? Physical Exam Constitutional: Appearance: Normal appearance. HENT: Head: Normocephalic and atraumatic. Eyes: General: No scleral icterus. Extraocular Movements: Extraocular movements intact. Pupils: Pupils are equal, round, and reactive to light. Cardiovascular: Rate and Rhythm: Normal rate and regular rhythm. Pulses: Normal pulses. Heart sounds: Normal heart sounds. No murmur heard. Pulmonary: Effort: Pulmonary effort is normal. Breath sounds: Normal breath sounds. No wheezing or rhonchi. Abdominal: General: Bowel sounds are normal. There is no distension. Palpations: Abdomen is soft. There is no mass. Tenderness: There is no abdominal tenderness. Hernia: No hernia is present. Musculoskeletal: General: Normal range of motion. Cervical back: Normal range of motion and neck supple. Skin: General: Skin is warm and dry. Coloration: Skin is not jaundiced. Neurological: General: No focal deficit present. Mental Status: She is alert and oriented to person, place, and time. Psychiatric: Mood and Affect: Mood normal. Judgment: Judgment normal. ? Assessment: Assessment 1. Stage 4 chronic kidney disease (HCC) 32-year-old female with chronic kidney disease related to complications of diabetes and hypertension. GFR now under 10%. She has been referred for PD catheter placement. She would appear to be a goodcandidate. Procedure and risk discussed, including bleeding, infection, failure of the catheter, aswell as others. She understands and gives consent. ?? Plan: Patient scheduled for laparoscopic placement of peritoneal dialysis catheter on September 23, 2022 at [facility]. ?? Electronically signed by Annmarie Nowak CMA - 09/13/2022 - 10:14 AM EST ?? Patient?? Crystal Archer 32 year old female 1990 ?? [address] [facility] [address] ?? [phone] (M) [phone] (H) Comm Pref: Recent Visits with You 09/13/2022 Office Visit More...?? Significant History/Details?? Smoking Former Smoker (Quit Date: ) Smokeless Tobacco Never Used Alcohol Not Currently Preferred Language Ivorian Specialty Comments Edit Show all No comments regarding your specialty Family Comments Edit None Care Team and Communications?? No referring provider ?? No PCP set ?? No other patient care team members ?? Visit Treatment Team Relationship Cb Renee MD Surgeon ? Recipients of Automatic ADT Notifications for This Admission Show All Admissions No notifications found. Social Determinants of Health?? Find [employer] Documents Created Type Source 04/11/2022 Continuity of Care Document?? [facility] 03/18/2022 Continuity of Care Document?? [facility] 03/17/2022 Continuity of Care Document?? [facility] Since Your Last Visit (Today)?? Sep 23 This Visit: Pre-admit with Me Sep 23 Surgery with Me LAPAROSCOPIC PD CATHETER PLACEMENT), Allergies?(very important)?? Allergies from outside sources need reconciliation.?? Nsaids (Non-steroidal Anti-inflammatory Drug) Jean Carlos as: Review Complete Review Complete by Cb Renee MD on 09/13/2022 Problem List?(very important)?? Problems from outside sources need reconciliation.?? None Jean Carlos as Reviewed Reviewed by Cb Renee MD on 09/13/2022 Medications?(very important)?? Medications from outside sources need reconciliation.?? atorvastatin (LIPITOR) 40 MG tablet calcitrioL (ROCALTROL) 0.5 MCG capsule calcium acetate 667 mg Tab carvediloL (COREG) 25 MG tablet insulin aspart U-100 (NovoLOG) 100 unit/mL (3 mL) InPn loratadine (CLARITIN) 10 mg tablet NIFEdipine (ADALAT CC) 60 MG 24 hr tablet sodium bicarbonate 650 MG tablet ?? Jean [place] as Reviewed Reviewed by Cb Renee MD on 09/13/2022 Immunizations/Injections?(very important)?? Immunizations from outside sources need reconciliation.?? None Reminders and Results?? None Health Maintenance?(very important)?? Data from outside sources needs reconciliation.?? Never done COVID-19 VACCINE (1) Never done HEPATITIS C SCREENING Never done CERVICAL CANCER SCREENING PAP ONLY (Age 21-65) 03/18/2022 INFLUENZA VACCINE (1) Never done DEPRESSION SCREENING (12+) ?09/13/2023 Tobacco Cessation Counseling and Screening (12+) ?02/16/2028 DTAP/TDAP/TD VACCINES (2 - Td or Tdap) Recent Labs and Imaging No resulted procedures found. S SAFETY ENGINEER documented in this encounter Miscellaneous Notes * Nursing Progress Notes - Yue Jacome RN - 09/23/2022 9:52 AM EST Pt has abd pad with binder S SAFETY ENGINEER * Op Note - Cb Renee MD - 09/23/2022 9:18 AM EST DATE OF PROCEDURE: 09/23/2022 PREOPERATIVE DIAGNOSIS: Chronic kidney disease. POSTOPERATIVE DIAGNOSIS: Chronic kidney disease. PROCEDURE PERFORMED: Laparoscopic placement of peritoneal dialysis catheter. TAIL EDGER: Wil Chawla. ANESTHESIA: General endotracheal. FINDINGS: The patient's peritoneal cavity appeared suitable for peritoneal dialysis. A 57 cm dual-cuffed coiled PD catheter was placed using standard laparoscopic approach. DESCRIPTION OF PROCEDURE: The patient was brought to the operating room, where general endotracheal anesthesia was induced. She was sterilely prepped and draped. Preoperative antibiotics were placed and sequential compression boots were used for DVT prophylaxis. Time-out was performed per protocol. 0.5% Marcaine with epinephrine was placed at each trocar site for postoperative analgesia. A small stab incision was made at the umbilicus, and a Veress needle placed and CO2 pneumoperitoneum obtained. A 5 mm Optiview was then used to enter peritoneal cavity through the right lower abdominal wall approach. The abdomen was explored laparoscopically. There was a single adhesion involving omentum to the anterior abdominal wall in the mid abdomen. The pelvis appeared suitable for peritoneal dialysis. A small paramedian incision was then made to the left of midline above the level of umbilicus with a scalpel, and carried down through the subcutaneous tissues with Bovie cautery. A small opening was created in the anterior layer of the rectus sheath, then laparoscopic insertion kit was used to direct a dual cuffed coiled PD catheter in a tangential fashion through the rectus sheath and down to the pelvis. A liter of saline was infused into peritoneal cavity with rapid return of approximately 800 mL of clear fluid. The catheter was heparinized per protocol. The incision was closed in layers with 0 Vicryl followed by running 4-0 Monocryl subcuticular stitch and skin adhesive. The trocar site was closed with 4-0 Monocryl and the skin adhesive. Bactroban was placed about the catheter exit site followed by sterile occlusive dressing and abdominal binder. The patient tolerated the procedure well. There were no immediate complications. Sponge and needle counts were correct. She was taken to Recovery in stable condition. /[id number] Cb Renee MD [facility] / [facility] /[id number] S SAFETY ENGINEER documented in this encounter Plan of Treatment Not on file documented as of this encounter Procedures Procedure Name Priority Date/Time Associated Diagnosis Comments NOVA GLUCOSE POC Routine 09/23/2022 8:51 AM EST HI LAP INSERTION TUNNELED INTRAPERITONEAL CATHETER 09/23/2022 7:50 AM EST Chronic kidney disease, stage IV (severe) (HCC) FS_MODEL_IP POCT , URINE Routine 09/23/2022 7:42 AM EST ISTAT GLUCOSE POC Routine 09/23/2022 7:3 9 AM EST POCT-CREATININE Routine 09/23/2022 7:39 AM EST POCT-POTASSIUM STAT 09/23/2022 7:39 AM EST FS_MODEL_IP_ECG 12-LEAD Routine 09/24/19 7:13 AM EST EKG-SCANNED 09/23/2022 documented in this encounter Results * (ABNORMAL) Glucose, Nova Meter (09/23/2022 8:51 AM EST) [facility] POC-GLUCOSE 177(H) 70 - 110 mg/dL 09/23/2022 8:52 AM EST [facility] Comment:Notified Nurse RBV Wedding Consultant [id number] 09/23/2022 8:52 AM EST [facility] Blood WHOLE BLOOD / Unknown 09/23/2022 8:51 AM EST 09/23/2022 8:52 AM EST Narrative [facility] - 09/23/2022 8:52 AM EST Wedding Consultant ID is - [id number] us Cb Renee MD POINT OF CARE TEST ORDERABLES Fi nal Result [facility] [address] [place] [address] * POCT , urine (09/23/2022 7:42 AM EST) Pathologist [facility] POC, URINE HCG Negative Negative INTERNAL QC (VALID/INVALID ) Valid Kit Lot Number [id number] Expiration Date 09/15/2023 09/23/2022 7:42 AM EST us Pelon Mendoza MD FS_MODEL_IP_POINT OF CARE TEST ENTER/EDIT ORDERABLES Final Result * (ABNORMAL) POC-Creatinine (09/23/2022 7:39 AM EST) POC-EGFR 8 mL/min/1. 73M2 09/23/2022 7:47 AM [facility] Comment:Proceed with contras t if eGFR > 45 ml/min/1.73 when performed on the NovaSTAT strip Creatinine meter. Wedding Consultant [id number] 09/23/2022 7:47 AM EST [facility] POC-Creatinine 6.3(H) 0.6 - 1.3 mg/dL 09/23/2022 7:47 AM [facility] Blood 09/23/2022 7:39 AM EST 09/23/2022 7:47 AM EST [facility] - 09/23/2022 7:47 AM EST Wedding Consultant ID is - [id number] Cb Renee MD POINT OF CARE TEST ORDERABLES Fi nal Result Performing Organization Address [facility]/ZIP Co de Phone Number [facility] [address] [place] [address] * Glucose, iSTAT Meter (09/23/2022 7:39 AM EST) [facility] POC-GLUCOSE 87 70 - 105 mg/dL 09/23/2022 7:47 AM [facility] Blood 09/23/2022 7:39 AM EST 09/23/2022 7:47 AM EST Narrative [facility] - 09/23/2022 7:47 AM EST Wedding Consultant ID is - [id number] us Cb Renee MD POINT OF CARE TEST ORDERABLES Fi nal Result [facility] [address] [phone] * POC-Potassium (09/23/2022 7:39 AM EST) [facility] POC Potassium 4.5 3.5 - 4.9 mmol/L 09/23/2022 7:47 AM EST [facility] Blood 09/23/2022 7:39 AM EST 09/23/2022 7:47 AM EST Narrative [facility] - 09/23/2022 7:47 AM EST Wedding Consultant ID is - [id number] us Pelon Mendoza MD POINT OF CARE TEST ORDERAB LES Final Result Performing Organization Address [facility] Co de Phone Number [facility] [address] [phone] * ECG 12 lead (09/23/2022 7:13 AM EST) VENTRICULAR RATE EKG/MIN 72 BPM GE MUSE ATRIAL RATE (MCT) 72 BPM GE MUSE HI Interval 144 ms GE MUSE QRS-INTERVAL (MSEC) 76 ms GE MUSE QT Interval 410 ms GE MUSE QTC Interval 448 ms GE MUSE P [place] 79 degrees GE MUSE R AXIS (MCT) 71 degrees GE MUSE T Wave [place] 68 degrees GE MUSE [place] Diagnosis Normal sinus rhythm Normal ECG No previous ECGs available Confirmed by Lottie VU, GARFIELD ([id number]), development editor LEO VALDIVIA ([id number]) on 09/23/2022 3:18:05 PM GE MUSE 09/23/2022 7:13 AM EST 09/23/2022 3:18 PM EST us Cb Renee MD ECG ORDERABLES Final Result Performing Organization Address [facility] Co de Phone Number GE MUSE * EKG-SCANNED (09/23/2022) Narrative 09/23/2022 Ordered by an unspecified provider. us Default Scanning Provider SCAN ORDERS Final Result documented in this encounter Visit Diagnoses Not on filedocumented in this encounter Administered Medications Inactive Administered Medications - up to 3 most recent administrations Medication Order MAR Action Action Date Dose Rate Site albuterol (PROVENTIL) nebulizer solution 2.5 mg 2.5 mg Once as needed, nebulization, wheezing, Starting on Emma 09/23/22 at 0845, For 1 dose, RESPIRATORY THERAPY TREATMENT , PACU, What is the respiratory therapy Modality? Small volume Nebulization famotidine (PEPCID) tablet 20 mg 20 mg Once, oral, On Emma 09/23/22 at 0800, For 1 dose, Pharmacist to renally dose if CrCl is less than 50 mL/min or on CRRT., Pre-op Given 09/23/2022 7:39 AM EST 20 mg fentaNYL (SUBLIMAZE) injection 25 mcg 25 mcg Every 5 min PRN, intravenous, moderate to severe pain (4-10), Starting on Emma 09/23/22 at 0845, Maximum cumulative dose 100 mcg, PACU Given 09/23/2022 9:13 AM EST 25 mcg HYDROmorphone (DILAUDID) injection 0.5 mg 0.5 mg Every 10 min PRN, intravenous, moderate pain (4-6), severe pain (7-10), Starting on Emma 09/23/22 at 0845, For 4 doses, Maximum cumulative dose 2 mg , PACU labetaloL (NORMODYNE,TRANDATE) 5 mg/mL injection 5 mg 5 mg Every 5 min PRN, intravenous, hypertension (sbp greater than 140), Starting on Emma 09/23/22 at 0845, For 4 doses, Hold if SBP less than 140 mmHg, DBP less than 70 mmHg, or HR less than 60 bpm , PACU morphine injection 2 mg 2 mg Every 5 min PRN, intravenous, severe pain (7-10), Starting on Emma 09/23/22 at 0845, Maximum cumulative dose 10 mg , PACU promethazine (PHENERGAN) 25 mg/mL injection (INTRAMUSCULAR only) Starting on Emma 09/23/22 at 0849, For 1 dose, Created by gail torres promethazine (PHENERGAN) injection 6.25 mg 6.25 mg Every 4 hours PRN, intravenous, nausea, Starting on Emma 09/23/22 at 0845, For 2 doses, 2nd line for nausea. Dilute in 10 mL NS and administer over 5 minutes, PACU Given 09/23/2022 8:55 AM EST 6.25 mg sodium chloride 0.9% (NS) flush 10 mL 10 mL As needed, intravenous, line care, Starting on Emma 09/23/22 at 0726, Every 8 hours and PRN to flush, Pre-op documented in this encounter Active and Recently Administered Medications Times are shown in EST. Scheduled Medication Order 09/21/2022 09/22/202209/2309/23/2022 ceFAZolin (ANCEF) 2 g in sodium chloride 0.9 % (NS) MBP 50 mL IVPB (COMPLETED) 2 g Once, intravenous, Administer over 30 Minutes, On Emma 09/23/22 at 0800, For 1 dose, Administer within 60 minutes of incision or procedure start., Pre-op, Please choose an indication: Surgical Prophylaxis 0812 (New Bag - Prov ider: Margarito Escobedo MD)[id number] (Stopped - Provider: Margarito Escobedo MD) diphenhydrAMINE (BENADRYL) injection 12.5 mg 12.5 mg Once, intravenous, On Emma 09/23/22 at 0930, For 1 dose, Maximum cumulative dose 100 mg, PACU 0930 (Due) famotidine (PEPCID) tablet 20 mg (COMPLETED) 20 mg Once, oral, On Emma 09/23/22 at 0800, For 1 dose, Pharmacist to renally dose if CrCl is less than 50 mL/min or on CRRT., Pre-op 0739 (Given - Provid er: Nakul Hull RN) lactated ringers (LR) infusion 1,000 mL Once, intravenous, at 125 mL/hr, On Emma 09/23/22 at 0930, For 1 dose, Recovery (only)., PACU 0930 (Due) meperidine (PF) (DEMEROL) injection 12.5 mg 12.5 mg Once, intravenous, On Emma 09/23/22 at 0930, For 1 dose, PACU, Are you ordering this medication for the approved restricted patient population specified above? Yes 929 (Due) sodium chloride 0.9% (NS) infusion Once, intravenous, at 30 mL/hr, On Emma 09/23/22 at 0800, For 1 dose 0800 (Due) PRN Medication Order 09/21/2022 09/22/2022 09/23/2022 albuterol (PROVENTIL) nebulizer solution 2.5 mg 2.5 mg Once as needed, nebulization, wheezing, Starting on Emma 09/23/22 at 0845, For 1 dose, RESPIRATORY THERAPY TREATMENT , PACU, What is the respiratory therapy Modality? Small volume Nebulization bupivacaine-epinephrine (PF) injection (CANCELED) As needed, Starting on Emma 3 at 0818, Intra-op 0818 (Given - Provid er: Cb Renee MD) fentaNYL (SUBLIMAZE) injection 25 mcg 25 mcg Every 5 min PRN, intravenous, moderate to severe pain (4-10), Starting on Emma 3 at 0845, Maximum cumulative dose 100 mcg, PACU 0913 (Given - Provid er: Nakul Hartley RN) HYDROmorphone (DILAUDID) injection 0.5 mg 0.5 mg Every 10 min PRN, intravenous, moderate pain (4-6), severe pain (7-10), Starting on Emma 3 at 0845, For 4 doses, Maximum cumulative dose 2 mg , PACU labetaloL (NORMODYNE,TRANDATE) 5 mg/mL injection 5 mg 5 mg Every 5 min PRN, intravenous, hypertension (sbp greater than 140), Starting on Emma 3 at 0845, For 4 doses, Hold if SBP less than 140 mmHg, DBP less than 70 mmHg, or HR less than 60 bpm , PACU morphine injection 2 mg 2 mg Every 5 min PRN, intravenous, severe pain (7-10), Starting on Emma 3 at 0845, Maximum cumulative dose 10 mg , PACU promethazine (PHENERGAN) injection 6.25 mg 6.25 mg Every 4 hours PRN, intravenous, nausea, Starting on Emma 3 at 0845, For 2 doses, 2nd line for nausea. Dilute in 10 mL NS and administer over 5 minutes, PACU 0855 (Given - Provid er: Nakul Hartley RN) sodium chloride 0.9% (NS) flush 10 mL(Linked Group 1) 10 mL As needed, intravenous, line care, Starting on Emma 3 at 0726, Every 8 hours and PRN to flush, Pre-op Linked Groups Order Group 1: Insert Peripheral IV (CANCELED) STAT, Once, On Emma 3 at 0727, For 1 occurrence, Pre-op And Saline Lock IV (CANCELED) Routine, Once, On Emma 3 at 0727, For 1 occurrence, Pre-op And sodium chloride 0.9% (NS) flush 10 mLJump to med 10 mL As needed, intravenous, line care, Starting on Emma 09/23/22 at 0726, Every 8 hours and PRN to flush, Pre-op documented in this encounter
--- OUTSIDE RECORDS SUMMARY | 2024-05-30 08:31 | XMS_ITS | Encounter Summary ---
Author Organization [employer] Address [address] [place] [address] Care Team Providers Care Interstate Planner Name Role Phone Unavailable Primary Care Provider Unavailabl e Encounter Details Date Type Department Care Team (Late st Contact Info) Description 01/19/2020 Transcribed Document [facility] [place] [address] [place] [address] ProviderLaury MD [address] [place] [id number] Social History Tobacco Use Types Packs/Day [...] Conversion Note - Laury ProviderMD - 01/19/2020 3:30 PM CDT [address] [address] FREDDIE RUGGIERO :1990 Visit Time:01/19/2020 Your Visit Summary Your Care Team Admitting Physician - CONSUELO ESTEVEZ MD-LAZARA MEMBRENO MD PHY, UNKNOWN Attending Physician - CONSUELO ESTEVEZ MD-EMR LAZARA KAPLAN MD Primary Care Physician - ERIKA PERSAUD MD-INT Referring Physician - LÓPEZ, SELF REFERRED Your Diagnosis Dehydration Hypoglycemia Post-operative complication Vomiting Vomiting, Vomiting, Vomiting, unspecified, Vomiting, unspecified These Are Your Goals To be able to hold downliquids. Discharge Vitals Temperature 36.9 ??C Heart Rate (Monitored) 64 Respiratory Rate 16 Blood Pressure 145/86 What to do next Instructions From Your Care Team Discharge Activity: Discharge Activity: Activity as tolerated Diet: Discharge Diet: Resume usual diet as tolerated Follow-Up Appointments Follow Up with Follow up with primary care provider When Within 1 week Follow Up with surgery in 1- weeks When Within 2 to 3 days Medications What How Much When Instructions Next Dose atorvastatin 40 Milligram(s) Oral Every Day calcitriol 0.5 Microgram(s) Oral Every Day calcium acetate 1,334 Milligram(s) Oral Three Times A Day carvedilol 25 Milligram(s) Oral Two Times A Day ergocalciferol (Vitamin D2 50,000 intl units (1.25 mg) oral capsule) 1 Capsule(s) Oral Weekly FLUoxetine 10 Milligram(s) Oral Every Day gabapentin 300 Milligram(s) Oral Two Times A Day hydrALAZINE 25 Milligram(s) Oral Two Times A Day insulin lispro (insulin lispro 100 units/ mL injectable solution) 170 Unit(s) SubCutaneous Every Day insulin pump continuous delivery loratadine 10 Milligram(s) Oral Every Day multivitamin (Multiple Vitamins oral tablet) 1 Tablet(s) Oral Every Day sodium bicarbonate (sodium bicarbonate 650 mg oral tablet) 2 Tablet(s) Oral Two Times A Day Take your medications faithfully. Do NOT skip medication. Do NOT stop taking medications without the direction of a physician. Carry a list of your medications with you at all times, and take this medication list with you to your first follow up visit. Report any side effects. Avoid herbal remedies unless discussed with your physician. As part of your treatment plan, your physician may have prescribed a limited course of a controlled substance. This medication may be given to help people with moderate or severe pain or for other medical conditions, but there are risks involved with treatment. Common side effects may include nausea, constipation, drowsiness, sweating, itching, dry mouth, and rash. More serious side effects may include cognitive and motor impairment, like problems with thinking, concentrating, alertness, and movement (e.g. slowed reflexes), and driving and operating heavy machinery can be dangerous. It is important for you to talk to your physician if you have these side effects or questions. These controlled substances can produce physical dependence and be habit-forming if taken for an extended period of time, which means that the body has gotten used to them and may experience withdrawal symptoms if they are abruptly stopped. Withdrawal symptoms can include runny nose, sweating, goose bumps, diarrhea, abdominal cramping, rapid heartbeat, difficulty sleeping, and nervousness. Please dispose of unused and medications per your retail pharmacy guidance. Allergies NSAIDs (kidney disease) Education Materials Vomiting, Adult Vomiting occurs when stomach contents [...] pharmacies and retail stores. ??? Eat bland, kuqj-oz-uwjvjj foods in small amounts as you are [...] and water are not available, use hand load out person. Make sure that everyone in your household washes their hands frequently. ??? Take lgrc-nxx-kukxqah and prescription medicines only as told by [...] and water are not available, use hand load out person. Make sure that everyone in your household [...] 07/30/2016 Document Revised: 12/12/2018 Document Reviewed: 12/12/2018 Pharmacopeia Interactive Patient Education ?? 2020 [employer]. Hypoglycemia Hypoglycemia occurs when the level of [...] contains sugar, such as: ??? Fruit juice, 4???6 oz (120???150 mL). ??? Regular soda (not diet soda), 4???6 oz (120???150 mL). ??? Low-fat milk, 4 oz (120 [...] ? Glucose pills (take 15 grams). ? 6???8 pieces of hard candy. ? 4???6 oz (120???150 mL) of fruit juice. ? 4???6 oz (120???150 mL) of regular (not diet) soda. ? [...] instructions at home: General instructions ??? Take kczy-jpd-eywpvgh and prescription medicines only as told by your health care provider. ??? Monitor your blood glucose as told by your health care provider. ??? Limit alcohol intake to no more than 1 drink a day for non women and 2 drinks a day for men. One drink equals 12 oz of beer (355 mL), 5 oz of wine (148 mL), or 1?? oz of hard liquor (44 mL). ??? [...] 07/04/2006 Document Revised: 12/26/2018 Document Reviewed: 08/06/2016 Pharmacopeia Interactive Patient Education ?? 2020 [employer]. Emergency Awareness and Preventative Care STROKE is an EMERGENCY Every Minute Counts Act FAST and Check for these signs: FACE Does the face look uneven? ARM Does one arm drift down? SPEECH Does their speech sound strange? TIME Call at any sign of stroke Stroke Risk Factors Atrial Fibrillation (irregular heartbeat) Diabetes Family history of stroke Heart Disease Heavy alcohol use High Blood Pressure High Cholesterol Physical inactivity and obesity Smoking Cigarette Smoking The facts are clear, cigarette smoking will shorten your life. Smoking can cause many illnesses along the way. As a healthcare provider, we recommend that you stop smoking. Assistance with quitting is available by contacting 6-065-FLOL-NOW. This is a free resource providing counseling, support, and referral. Or you may contact your personal physician. National Suicide Prevention Lifeline: The National Suicide Prevention Lifeline is a national network of local crisis centers that provides free and confidential emotional support to people in suicidal crisis or emotional distress 24 hours a day, 7 days a week. Don't Wait! Stop a Heart Attack Before it Starts What is a heart attack? A heart attack is damage or to a part of the heart from severely decreased or lack of blood flow to the heart. Over time, arteries can become narrow from the buildup of fat and cholesterol, which is called plaque. The plaque can rupture causing a blood clot to form. When the blood clot forms, the artery can become severely narrowed or completely blocked, causing a heart attack. Heart attack is the leading cause of in the [place]. 85% of muscle damage occurs within the first 2 hours. Delay in the recognition of heart attack symptoms increases the chances of . Know the early symptoms of a heart attack: Nausea Feeling of fullness in chest Jaw Pain Pain that travels down one or both arms Fatigue/being tired Anxiety Back Pain Chest pressure, squeezing, or discomfort Shortness of breath Sweating, or a cold sweat Feeling of impending doom There are unusual signs of a heart attack, too! Women, the elderly, and diabetics may present with atypical symptoms: Fainting/dizziness Weakness Confusion Risk Factors for a Heart Attack Some heart disease risk factors, such as age and family history, cannot be changed. Others, like smoking and lack of exercise, can be changed. Smoking High Cholesterol High Blood Pressure Family History Obesity Age Gender (Males are at higher risk) Lack of Exercise Diabetes Diet Stress Excessive Alcohol Intake If you or someone you know is experiencing the signs and symptoms of a heart attack, DON???T DELAY. Call immediately and seek help. If someone collapses, perform CPR! Do not attempt to drive if you are having symptoms of heart attack. Hands-Only CPR Why Hands-Only CPR? Hands-Only CPR has been shown to be as effective as conventional CPR for cardiac arrests that occur outside of a hospital. Survival depends on immediately receiving CPR from someone nearby. How do you perform Hands-Only CPR? There are two easy steps: Call if you see a teen or adult collapse Push hard and fast in the center of the chest at a beat of 100 beats per minute. Save a life! 4 WAYS TO GET AHEAD OF SEPSIS SEPSIS is a MEDICAL EMERGENCY. Time matters! Infections put you and your family at risk for a life-threatening condition called sepsis. Sepsis is the body's extreme response to an infection. It is life-threatening, and without timely treatment, sepsis can rapidly lead to tissue damage, organ failure, and . Sepsis happens when an infection you already have-in your skin, lungs, urinary tract or somewhere else-triggers a chain reaction throughout your body. 1 PREVENT INFECTIONS Take good care of chronic conditions. Talk to your doctor about getting the recommended vaccines. 2 PRACTICE GOOD HYGIENE Wash your hands frequently. Keep cuts or open sores clean and covered until they are healed. 3 KNOW THE SYMPTOMS Confusion or disorientation Shortness of breath High heart rate Fever, shivering, or feeling very cold Extreme pain or discomfort Clammy or sweaty skin 4 ACT FAST Get medical care IMMEDIATELY if you suspect sepsis or if you have an infection that is not getting better or is getting worse. To learn more about sepsis and how to prevent infections, visit www.cdc.gov/sepsis. Test Results Laboratory or Other Results This Visit (last charted value for your 01/19/2020 visit) Hematology 01/18/2020 9:21 PM WBC: 10.0 K/uL -- Normal range between ( 3.9 and 10.0 ) RBC: 3.39 Million/uL -- Normal range between ( 3.93 and 5.22 ) Hct: 32.0 % -- Normal range between ( 34.1 and 44.9 ) Hgb: 10.1 Gram/dL -- Normal range between ( 11.2 and 15.7 ) Platelet Count: 226 K/uL -- Normal range between ( 163 and 369 ) MCH: 29.8 pg -- Normal range between ( 25.6 and 32.2 ) MCHC: 31.6 Gram/dL -- Normal range between ( 32.3 and 36.5 ) MCV: 94.4 fL -- Normal range between ( 79.0 and 94.8 ) Slide Review: No Eos %: 2.4 % -- Normal range between ( 1.0 and 7.0 ) Whitley #: 0.73 K/uL -- Normal range between ( 0.24 and 0.82 ) Eos #: 0.24 K/uL -- Normal range between ( 0.04 and 0.54 ) Whitley %: 7.3 % -- Normal range between ( 4.7 and 12.5 ) Baso %: 0.4 % -- Normal range between ( 0.0 and 1.0 ) Baso #: 0.04 K/uL -- Normal range between ( 0.01 and 0.08 ) RDW: 12.5 % -- Normal range between ( 11.6 and 14.4 ) Neut %: 50.6 % -- Normal range between ( 34.0 and 71.0 ) Neut #: 5.08 K/uL -- Normal range between ( 1.56 and 6.13 ) Lymph %: 39.0 % -- Normal range between ( 19.3 and 53.0 ) Lymph #: 3.92 K/uL -- Normal range between ( 1.18 and 3.74 ) MPV: 12.6 fL -- Normal range between ( 9.4 and 12.4 ) IG#: 0 x10(3)/uL IG%: 0 % -- Normal range between ( 0 and 1 ) Urinalysis 01/19/2020 4:10 AM Ur RBC: 0-2 /HPF Urine Nitrite: Negative Urine Leukocyte Esterase: Trace Ur Epithelial Cells: 2-5 /HPF Urine Appearance: Clear Urine Glucose Dipstick: 100 Urine Blood Dipstick: Negative Urine Type: U CleanCatch Urine Urobilinogen Dipstick: 0.2 EU/dL -- Normal range between ( 0.2 and 1.0 ) Urine Protein Dipstick: >=300 Ur Bacteria: 2+ Urine Color: Yellow Ur WBC: 5-10 /HPF Urine Ketones Dipstick: Negative Urine pH Dipstick: 5.5 -- Normal range between ( 6.0 and 8.0 ) Urine Bilirubin Dipstick: Negative Urine Specific Norvell: 1.012 -- Normal range between ( 1.005 and 1.030 ) General Chemistry 01/19/2020 11:16 AM Glucose POC2: 126 mg/dL -- Normal range between ( 70 and 110 ) 01/19/2020 4:55 AM Device Comment 1: Device Comment 1 01/18/2020 9:21 PM Creatinine Level: 5.29 mg/dL -- Normal range between ( 0.55 and 1.02 ) Sodium Level: 145 mmol/L -- Normal range between ( 136 and 146 ) Potassium Level: 4.5 mmol/L -- Normal range between ( 3.5 and 5.1 ) Chloride Level: 119 mmol/L -- Normal range between ( 102 and 112 ) Carbon Dioxide Level: 20 mmol/L -- Normal range between ( 21 and 32 ) Anion Gap: 10 -- Normal range between ( 9 and 20 ) Bilirubin Total: 0.2 mg/dL -- Normal range between ( 0.2 and 1.3 ) A/G Ratio: 0.8 -- Normal range between ( 1.1 and 2.5 ) ALT: 37 Units/Liter -- Normal range between ( 12 and 78 ) AST: 18 Units/Liter -- Normal range between ( 5 and 37 ) Globulin: 4.0 Gram/dL -- Normal range between ( 1.5 and 4.5 ) Alk Phos: 97 Units/Liter -- Normal range between ( 27 and 136 ) Bun/Creatinine: 8.7 -- Normal range between ( 8.0 and 20.0 ) Calcium Level: 8.2 mg/dL -- Normal range between ( 8.5 and 10.1 ) eGFR : 12 mL/min/1.73m2 eGFR NonAfrican: 10 mL/min/1.73m2 Glucose Level: 49 mg/dL -- Normal range between ( 74 and 106 ) Blood Urea Nitrogen: 46 mg/dL -- Normal range between ( 7 and 22 ) Protein Total: 7.1 Gram/dL -- Normal range between ( 6.4 and 8.2 ) Albumin Level: 3.1 Gram/dL -- Normal range between ( 3.4 and 5.0 ) Lipase Level: 661 Units/Liter -- Normal range between ( 73 and 393 ) Endocrinology 01/19/2020 4:10 AM HCG Urine Qualitative: Negative 01/18/2020 10:36 PM HCG Serum Quant: <1.0 mIU/mL Computed Tomography 01/19/2020 0:[address] Abdomen Pelvis WO: CT Abdomen Pelvis WO Patient Name:FREDDIE RUGGIERO I have received and understand this information and was given the opportunity to ask questions. Patient/Therapy Administrative Assistant Name: Patient/Therapy Administrative Assistant Signature: Relationship to Patient: Clinician/Hospital Therapy Administrative Assistant Signature: Date: Electronically signed by Rochel[facility] Conversion Switchbox Assembler Keysha at 11/02/2022 10:10 AM CDT documented in this encounter Plan of Treatment Not on file documented as of this encounter Visit Diagnoses Not on filedocumented in this encounter
--- OUTSIDE RECORDS SUMMARY | 2024-05-30 08:31 | XMS_ITS | Encounter Summary ---
Author Organization [employer] Address [address] [place] [address] Care Team Providers Care Egg Sorter Name Role Phone Unavailable Primary Care Provider Unavailabl e Encounter Details Date Type Department Care Team (Late st Contact Info) Description 01/05/2020 Transcribed Document [facility] [place] [address] [place] [address] ProviderLaury MD [address] [place] [address] Social History Tobacco Use Types [...] Conversion Note - Laury Conte MD - 01/05/2020 1:42 PM CDT Patient Education Materials Follows: Dr. Jj Crum, Dr. Daniel Pena, Dr. Xavi Pinto PA-C - Office - Physician Exchange Discharge Instructions Use your patient handbook! DIET ?? Staying hydrated is your main goal! Be sure to drink at least 64 ounces of fluid/water every day. ?? Remember the importance of hot liquids at least twice a day to reduce mucus build up and nausea. ?? Begin using your protein supplements as soon as you get home. Work up to at least 60-80 grams of protein from your supplements. That's about 3-4 supplements a day. ?? You may start your soft, high protein diet only when you are drinking 64 oz of fluid and getting close to your 60 grams of protein from your supplements. ?? Stick with only the foods in phase three of your handbook. These foods are soft, moist and high in protein. Aim for about 3 Tbsp or 1.5 oz per meal. Remember no drinking with food or the hour after. ?? Use the fluid and protein log in your patient handbook to track your intake. ACTIVITY ?? No lifting over 20 pounds within two weeks after surgery, or until the doctor recommends it. ?? No water exercise for two weeks. ?? Do not sit or stand for long periods of time. When you do sit, change positions frequently. ?? Do not drive until 1 week after surgery and until you are off all pain medication. ?? You may resume sexual relations when comfortable. ?? Continue to use the spirometer (breathing exercise) that you brought home at least 4 times a day for the first week. ?? Return to work when you feel capable. ?? Begin to walk 30 minutes each day. At first you may need to take two or three 10 to 15 minute walks. Gradually increase the distance you walk as you tolerate. MEDICINES ?? Take your medicines as we discussed at discharge. There may be some changes from what you were on before surgery. Fill prescriptions given at hospital and begin taking the omeprazole (or equivalent) daily. ?? Post-op vitamins will begin after your post-op appointment. ?? Take a dose of Milk of Magnesia each day that you are taking pain medication or until you have normal bowel movement. DIABETES ?? If you are diabetic, check your glucose. Call the office if it is greater than 200 more than 3 times in 24-48 hours. WOUND CARE ?? You will be sent home with bandages over your incisions. You should remove all the bandages and shower over your wounds using antibacterial soap, such as Dial, the day after you return home. Do not re-cover your aparna. Pat dry after shower with a clean towel. If you have some wound drainage, it is still fine to shower. You may use a dressing or sanitary napkin to recover your drain site if needed. ?? Please notify [facility] of any drainage, type and amount, change in well-being: fever, increasing pain, inability to tolerate fluids or liquids. REMEMBER As you begin to use your body fat as fuel, you will become ketotic and therefore a bit nauseated. It is important that you continue your protein, even when you are not hungry or feel nauseated. WHEN TO CALL US ? If you have abdominal pain worse than you ever had in the hospital. ?? If you have a temperature that is 101 degrees or more. ?? If you have unusual swelling in one or both legs. ?? If you vomit and it looks different from what you just ate / drank. ?? If you have increased redness or drainage from incision sites. ?? If you have any other symptoms that concern you. Use your Patient Handbook! Many topics including nausea, vomiting, diarrhea, constipation, sleeplessness, headaches, and more are covered within this book. If you do not find an answer in your book, please call the Center at [phone]. documented in this encounter Plan of Treatment Not on file documented as of this encounter Visit Diagnoses Not on filedocumented in this encounter
--- OUTSIDE RECORDS SUMMARY | 2024-05-30 08:31 | XMS_ITS | Encounter Summary ---
Author Organization [employer] Address [address] [place] [address] Care Team Providers Care Intranet Developer Name Role Phone Unavailable Primary Care Provider Unavailabl e Reason for Visit * Auth/Cert Specialty Diagnoses / Procedures Referred By Xochitl burt Referred To Contact Diagnoses Chronic kidney disease, stage IV (severe) (HCC) Chronic kidney disease, Procedures IA LAP INSERTION TUNNELED INTRAPERITONEAL CATHETER LAPAROSCOPY, WITH PERITONEAL DIALYSIS CATHETER INSERTION Cb Renee MD [address] [place] [address] [place] [address] Phone: tel: fax: Referral ID Status Reason Start Date Expiration Date Visits Re quested Visits Authorized [id number] 09/13/2022 1 1 Encounter Details Date Type Department Care Team (Late st Contact Info) Description 09/23/2022 8:00 AM EST - 09/23/2022 9:20 AM EST Surgery [facility] Operating Room [address] [place] [address] Cb Renee MD [address] [place] [address] LAPAROSCOPIC PD CATHETER PLACEMENT), Social History Tobacco Use Types Packs/Day Years [...] Sign Reading Time Taken Comments Blood Pressure 148/72 09/23/2022 9:20 AM EST Pulse 81 09/23/2022 9:20 AM EST Temperature 36.4 ??C (97.5 ??F) 09/23/2022 8:55 AM ES T Respiratory Rate 22 09/23/2022 9:20 AM EST Oxygen Saturation 99% 09/23/2022 9:20 AM EST Inhaled Oxygen Concentration - - Weight 70.8 kg (156 lb) 09/23/2022 7:21 AM EST Height 165.1 cm (5' 5 ) 09/23/2022 7:21 AM EST Body Mass Index 25.96 09/23/2022 7:21 AM EST documented in this encounter Discharge Instructions * Appointments* Yue Jacoem RN - 09/23/2022 9:27 AM EST No [...] for 24 hours or while taking narcotics BARBECUE * Attachments The following attachments cannot be sent through Care Everywhere. * General Anesthesia Adult Care After (Trinidadian) * Peritoneal Dialysis Catheter Placement Care After (Trinidadian) * Acetaminophen; Hydrocodone Capsules or Tablets (Trinidadian) documented in this encounter Medications at Time [...] of this encounter H&P Notes * Mare Rodgers, RN ANESTHETIST - 09/23/2022 8:00 AM EST HPI History [...] ??? POC-EGFR 09/23/2022 8 mL/min/1.73M2 Final ??? Acute Care Physician 09/23/2022 [id number] Final ??? POC-Creatinine 09/23/2022 6.3 (A) 0.6 - 1.3 mg/dL Final No image results found. Assessment & Plan Renal failure DM Hyperparathyroidism Anemia HTN HLD Hyperkalemia Pt to proceed with surgery, DC home today. Electronically signed by: Mare Rodgers APRN, 09/23/2022 at 8:32 AM Cosigned by Cb Renee MD at 09/23/2022 2:25 PM EST BARBECUE BARBECUE Associated attestation - Cb Renee MD - 09/23/2022 1:25 PM COOK BARBECUE Patient seen and examined by myself. Agree [...] dialysis catheter on September 23, 2022 at [facility]. ?? Electronically signed by Annmarie Nowak CMA - 09/13/2022 - 10:14 AM EST ?? Patient?? Crystal Archer 32 year old female 1990 ?? [address] [facility] [place] [address] ?? [phone] (M) [phone] (H) Comm Pref: Recent Visits with You 09/13/2022 Office Visit More...?? Significant History/Details?? Smoking Former Smoker (Quit Date: ) Smokeless Tobacco Never Used Alcohol Not Currently Preferred Language Trinidadian Specialty Comments Edit Show all No comments regarding your specialty Family Comments Edit None Care Team and Communications?? No referring provider ?? No PCP set ?? No other patient care team members ?? Visit Treatment Team Relationship Cb Renee MD Surgeon ? Recipients of Automatic ADT Notifications for This Admission Show All Admissions No notifications found. Social Determinants of Health?? Find [employer] Documents Created Type Source 04/11/2022 Continuity of Care Document?? [facility] 03/18/2022 Continuity of Care Document?? [facility] 03/17/2022 Continuity of Care Document?? [facility] Since Your Last Visit (Today)?? Sep [...] Labs and Imaging No resulted procedures found. BARBECUE documented in this encounter Miscellaneous Notes * Nursing Progress Notes - Yue Jacome RN - 09/23/2022 9:52 AM EST Pt has abd pad with binder BARBECUE * Op Note - Cb Renee MD - 09/23/2022 9:18 AM EST DATE OF PROCEDURE: 09/23/2022 PREOPERATIVE DIAGNOSIS: Chronic kidney disease. POSTOPERATIVE DIAGNOSIS: Chronic kidney disease. PROCEDURE PERFORMED: Laparoscopic placement of peritoneal dialysis catheter. WIRE BASKET MAKER: iWl Chawla. ANESTHESIA: General endotracheal. FINDINGS: The patient's [...] was taken to Recovery in stable condition. /[id number] Cb Renee MD [facility]/ / [facility] [place] /[id number] BARBECUE documented in this encounter Plan of Treatment Not on file documented as of this encounter Procedures Procedure Name Priority Date/Time Associated Diagnosis Comments NOVA GLUCOSE POC Routine 09/23/2022 8:51 AM EST IA LAP INSERTION TUNNELED INTRAPERITONEAL CATHETER 09/23/2022 7:50 AM EST Chronic kidney disease, stage IV (severe) ([facility]) FS_MODEL_IP POCT , URINE Routine 09/23/2022 7:42 AM EST ISTAT GLUCOSE POC Routine 09/23/2022 7:3 9 AM EST POCT-CREATININE Routine 09/23/2022 7:39 AM EST POCT-POTASSIUM STAT 09/23/2022 7:39 AM EST FS_MODEL_IP_ECG 12-LEAD Routine 09/24/19 7:13 AM EST EKG-SCANNED 09/23/2022 documented in this encounter Results * (ABNORMAL) Glucose, Nova Meter (09/23/2022 8:51 AM EST) [facility] POC-GLUCOSE 177(H) 70 - 110 mg/dL 09/23/2022 8:52 AM EST [facility] Comment:Notified Nurse RBV Acute Care Physician [id number] 09/23/2022 8:52 AM EST [facility] Blood WHOLE BLOOD / Unknown 09/23/2022 8:51 AM EST 09/23/2022 8:52 AM EST Narrative [facility] - 09/23/2022 8:52 AM EST Acute Care Physician ID is - [id number] us Cb Renee MD POINT OF CARE TEST ORDERABLES Fi nal Result [facility] [address] [phone] * POCT , urine (09/23/2022 7:42 AM EST) [facility] POC, URINE HCG Negative Negative INTERNAL QC (VALID/INVALID ) Valid Kit Lot Number [id number] Expiration Date 09/15/2023 09/23/2022 7:42 AM EST us Pelon Mendoza MD FS_MODEL_IP_POINT OF CARE TEST ENTER/EDIT ORDERABLES Final Result * (ABNORMAL) POC-Creatinine (09/23/2022 7:39 AM EST) [facility] POC-EGFR 8 mL/min/1. 73M2 09/23/2022 7:47 AM EST [facility] Comment:Proceed with contras t if eGFR > 45 ml/min/1.73 when performed on the NovaSTAT strip Creatinine meter. Acute Care Physician [id number] 09/23/2022 7:47 AM EST [facility] POC-Creatinine 6.3(H) 0.6 - 1.3 mg/dL 09/23/2022 7:47 AM EST [facility] Blood 09/23/2022 7:39 AM EST 09/23/2022 7:47 AM EST Narrative [facility] - 09/23/2022 7:47 AM EST Acute Care Physician ID is - [id number] Cb Renee MD POINT OF CARE TEST ORDERABLES Fi nal Result Performing Organization Address [facility]/ZIP Co de Phone Number [facility] [address] [place] [address] * Glucose, iSTAT Meter (09/23/2022 7:39 AM EST) [facility] POC-GLUCOSE 87 70 - 105 mg/dL 09/23/2022 7:47 AM EST [facility] Blood 09/23/2022 7:39 AM EST 09/23/2022 7:47 AM EST Narrative [facility] - 09/23/2022 7:47 AM EST Acute Care Physician ID is - [id number] us Cb Renee MD POINT OF CARE TEST ORDERABLES Fi nal Result [facility] [address] [phone] * POC-Potassium (09/23/2022 7:39 AM EST) [facility] POC Potassium 4.5 3.5 - 4.9 mmol/L 09/23/2022 7:47 AM EST [facility] Blood 09/23/2022 7:39 AM EST 09/23/2022 7:47 AM EST Narrative [facility] - 09/23/2022 7:47 AM EST Acute Care Physician ID is - [id number] us Pelon Mendoza MD POINT OF CARE TEST ORDERAB LES Final Result Performing Organization Address [facility]/ZIP Co de Phone Number [facility] [address] [phone] * ECG 12 lead (09/23/2022 7:13 AM EST) VENTRICULAR RATE EKG/MIN 72 BPM GE MUSE ATRIAL RATE (MCT) 72 BPM GE MUSE IA Interval 144 ms GE MUSE QRS-INTERVAL (MSEC) 76 ms GE MUSE QT Interval 410 ms GE MUSE QTC Interval 448 ms GE MUSE P [employer] [place] 79 degrees GE MUSE R AXIS (MCT) 71 degrees GE MUSE T Wave [employer] [place] 68 degrees GE MUSE Brule Diagnosis Normal sinus rhythm Normal ECG No previous ECGs available Confirmed by Lottie VU, GARFIELD ([id number]), legal editor LEO VALDIVIA ([id number]) on 09/23/2022 3:18:05 PM GE MUSE 09/23/2022 7:13 AM EST 09/23/2022 3:18 PM EST us Cb Renee MD ECG ORDERABLES Final Result Performing Organization Address [facility]/ZIP Co de Phone Number GE MUSE * EKG-SCANNED (09/23/2022) Narrative 09/23/2022 Ordered by an unspecified provider. us Default Scanning Provider SCAN ORDERS Final Result documented in this encounter Visit Diagnoses Diagnosis Chronic kidney disease, stage IV (severe) (HCC) Chronic kidney disease, Stage IV (severe) documented in this encounter Administered Medications Inactive [...] Modality? Small volume Nebulization bupivacaine-epinephrine (PF) injection As needed, Starting on Emma 09/23/22 at 0818, Intra-op Given 09/23/2022 8:18 AM EST 20 mLs Abdominal Tissue famotidine (PEPCID) tablet 20 mg 20 mg [...] 0849, For 1 dose, Created by gail beckeride promethazine (PHENERGAN) injection 6.25 mg 6.25 mg [...] shown in EST. Scheduled Medication Order 09/21/2022 09/22/2022 09/23/2022 ceFAZolin (ANCEF) 2 g in sodium chloride [...] 12.5 mg 12.5 mg Once, intravenous, On Mema 09/23/22 at 0930, For 1 dose, Maximum [...] approved restricted patient population specified above? Yes 30 (Due) sodium chloride 0.9% (NS) infusion Once, [...] injection (CANCELED) As needed, Starting on Emma 09/23/22 at 0818, Intra-op 0818 (Given - Provid [...] Peripheral IV (CANCELED) STAT, Once, On Emma 09/23/22 at 0727, For 1 occurrence, Pre-op And Saline Lock IV (CANCELED) Routine, Once, On Emma 09/23/22 at 0727, For 1 occurrence, Pre-op And sodium chloride 0.9% (NS) flush 10 mLJump to med 10 mL As needed, intravenous, line care, Starting on Emma 09/23/22 at 0726, Every 8 hours and PRN to flush, Pre-op documented in this encounter
--- OUTSIDE RECORDS SUMMARY | 2024-05-30 08:31 | XMS_ITS | Encounter Summary ---
Author Organization [employer] Address [address] [place] [address] Care Team Providers Care Environmental Laboratory Technician Name Role Phone Unavailable Primary Care Provider Unavailabl e Encounter Details Date Type Department Care Team (Late st Contact Info) Description 01/08/2019 Transcribed Document [facility] [place] Medicine [facility] [place] [address] ProviderLaury MD [address] [place] [address] Social History Tobacco Use Types Packs/Day [...] Laury ProviderMD - 01/08/2019 12:31 AM CDT [facility] Emergency Department Depart Summary PERSON INFORMATION Name Crystal Archer Age 28 Years 1990 Sex Female Language PCP Marital Status Phone [phone] Visit Id Visit Reason Specialty Enc Type Emergency Med Service [facility] Id [id number] Checkout 01/07/2019 20:31:56 Checkin 01/07/2019 18:52:00 Acuity 3 - Urgent K Dispo Type Arrival 01/07/2019 18:52:00 Reg Status LOS 000 01:39 Address: [address] [place] [address] [place] [address] POWERFORMS PHYSICIAN NOTES VITALS INFORMATION Vital Sign Triage Temp 99.4 Temp Route Pulse Rate 96 Respiratory Rate 16 Blood Pressure 137/ 85 LOCATION INFORMATION Arrival Nurse Unit Room Bed 01/07/2019 18:52:00 [facility] ED Waitroom ([facility]) 01/07/2019 20:31:56 [facility] ED Checkout ([facility]) MEDICAL INFORMATION Allergy Info: NSAIDs PATIENT EDUCATION INFORMATION Instructions: Follow up: DIAGNOSIS documented in this encounter Plan of Treatment Not on file documented as of this encounter Visit Diagnoses Not on filedocumented in this encounter
--- OUTSIDE RECORDS SUMMARY | 2024-05-30 08:31 | XMS_ITS | Encounter Summary ---
Author Organization [employer] Address [address] [place] [address] Care Team Providers Care Cotton Farmer Name Role Phone Unavailable Primary Care Provider Unavailabl e Encounter Details Date Type Department Care Team (Late st Contact Info) Description 09/15/2021 Transcribed Document [facility] [place] [address] [place] [address] ProviderLaury MD [address] [place] [address] Social History Tobacco Use Types [...] Cerner Conversion Note - Historical ProviderMD - 09/15/2021 11:12 AM INDUSTRIAL ENGINEERING Broset Violence Assessment Entered On: 09/15/2021 12:44 EST Performed On: 09/15/2021 12:43 EST by AUSTIN AVILES RN Broset Violence Assessment Broset Violence Checklist of Symptoms : None Broset Violence Symptoms Subtotal : 0 Broset Violence Symptoms Indicator : Low risk (0) AUSTIN AVILES RN - 09/15/2021 12:43 EST Electronically signed by Rochelle [facility] Conversion Door Closer Cerner at 11/02/2022 10:10 AM CDT documented in this encounter Plan of Treatment Not on file documented as of this encounter Visit Diagnoses Not on filedocumented in this encounter
--- OUTSIDE RECORDS SUMMARY | 2024-05-30 08:31 | XMS_ITS | Encounter Summary ---
Author Organization [employer] Address [address] [place] [address] Care Team Providers Care Chief Drafter Name Role Phone Unavailable Primary Care Provider Unavailabl e Encounter Details Date Type Department Care Team (Late st Contact Info) Description 09/28/2019 Transcribed Document [facility] [place] [address] [place] [address] ProviderLaury MD [address] [place] [address] Social History Tobacco Use Types [...] Cerner Conversion Note - Laury ProviderMD - 09/28/2019 12:44 PM CDT UM Authorization Entered On: 09/28/2019 12:44 EDT Performed On: 09/28/2019 12:44 EDT by MANOJ HWANG RN-Utilization Review Primary Insurance Authorization Authorization and Policy Numbers : Insurance 1 Health Plan: [facility] Policy Number: [id number] Authorization Number: Insurance Primary Name : [facility] Policy Number: [id number] Authorization Status-Primary : Admit approved Reference Number-Primary : [id number] Authorization Number-Primary : [id number] Number of Days Authorized-Primary : 0 Day(s) Authorized Service Begin Date-Primary : 10/11/2019 EDT Authorized Service End Date-Primary : 10/11/2019 EDT Authorization Comments-Primary : [employer] approved per website for 1 day inpt Historical Authorization Comments-Primary : No Authorization Comments Found MANOJ HWANG RN-Utilization Review - 09/28/2019 12:44 EDT documented in this encounter Plan of Treatment Not on file documented as of this encounter Visit Diagnoses Not on filedocumented in this encounter
--- OUTSIDE RECORDS SUMMARY | 2024-05-30 08:31 | XMS_ITS | Encounter Summary ---
Author Organization [email or web address] Address [address] [place] [address] Care Team Providers Care Home Hospice Rn Name Role Phone Unavailable Primary Care Provider Unavailabl e Encounter Details Date Type Department Care Team (Late st Contact Info) Description 01/19/2020 Transcribed Document [facility] [place] [facility] [place] [address] ProviderLaury MD [address] [place] [id number] Social History Tobacco Use Types Packs/Day Years [...] Conversion Note - Laury ProviderMD - 01/19/2020 8:59 AM CDT Readmission Questionnaire Entered On: 01/19/2020 9:00 EDT Performed On: 01/19/2020 8:59 EDT by CRISTOBAL HANSEN RN-Health Communications Specialist Readmission Questionnaire Patient Status at Discharge, Previous Admission : Inpatient Did Patient Leave AMA Pre Admission : No Readmission : Unplanned Readmission Reason: : Patient/caregiver decided on their own to come to ED ED Visit Between Hospitalization : No DC Destination, Previous Admission : Discharge To Care Management: Home/Residential/Detention or Self Care - (01/19/20 08:56:00) If DC Home/Self Previous Admission Patient Lives : With family including spouse Was Follow Up Visit Scheduled Prior to DC : Yes If HH Previous Admission was Patient Seen by HH : N/A Did Patient Have Own Medications Filled : Yes Did Patient Take Medications as Prescribed : Yes PT Received Nursing DC Information on Previous Adm : Yes Teachback Documented on Previous Admission : Yes Did Patient Understand DC Instructions : Yes Understand What You Need To Do To Care For Self : Yes Did You Have Any Other Questions Or Concerns : No Could Hospital Have Prevented Readmission : No Readmission Related to Previous Admission : No Per Readm Questionnaire Was Readm Preventable : No CRISTOBAL HANSEN RN-Health Communications Specialist - 01/19/2020 8:59 EDT Electronically signed by Rochel[facility] Conversion Seasonal Package Handler Cerner at 11/02/2022 9:56 AM CDT documented in this encounter Plan of Treatment Not on file documented as of this encounter Visit Diagnoses Not on filedocumented in this encounter
--- OUTSIDE RECORDS SUMMARY | 2024-05-30 08:31 | XMS_ITS | Encounter Summary ---
Author Organization [employer] Address [address] [place] [address] Care Team Providers Care Mini Lab Operator Name Role Phone Unavailable Primary Care Provider Unavailabl e Reason for Visit * Reason Comments New Patient peritoneal dialysis catheter evaluation * Surgical (Routine) - Closed Specialty Diagnoses / Procedures Referred By Contac t Referred To Contact General Surgery Diagnoses CKD (chronic kidney disease) Ibrahima Talamantes MD [address] [place] [address] [address] [place] [address] Phone: tel: [place]: [place] [address] [place] [address] [address] Phone: tel: fax: Referral ID Status Reason Start Date Expiration Date Visits Re quested Visits Authorized [id number] Closed 09/07/2022 03/06/2023 1 1 Encounter Details Date Type Department Care Team (Late st Contact Info) Description 09/13/2022 10:00 AM EST Office Visit [facility] [address] [place] [address] [address] [place] [address] Cb Renee MD [address] [place] [address] [address] Stage 4 chronic kidney disease (HCC) (Primary Dx) Social History Tobacco Use Types Packs/Day Years Used Date Smoking Tobacco: Former Smokeless Tobacco: Never Alcohol Use Standard Drinks/Week [...] Sign Reading Time Taken Comments Blood Pressure 146/80 09/13/2022 10:12 AM EST Pulse 78 09/13/2022 10:12 AM EST Temperature - - Respiratory Rate - - Oxygen Saturation - - Inhaled Oxygen Concentration - - Weight 69.4 kg (153 lb) 09/13/2022 10:12 AM EST Height 165.1 cm (5' 5 ) 09/13/2022 10:12 AM EST Body Mass Index 25.46 09/13/2022 10:12 AM EST documented in this encounter Progress Notes * Cb Renee MD - 09/13/2022 10:00 AM EST Subjective: Chief Complaint Patient presents with ??? New Patient peritoneal dialysis catheter evaluation Crystal Archer is a 32 y.o. female here for a peritoneal dialysis catheter evaluation. She states she is in end stage renal failure. She has not had a PD catheter before. She does not do dialysis. Abdominal surgeries consist of gastric bypass, , and tubal. Outpatient Medications Marked as Taking for the 09/13/22 encounter (Office Visit) with Cb Renee MD Medication Sig Dispense Refill ??? atorvastatin (LIPITOR) 40 MG tablet Take 40 mg by mouth daily. ??? calcitrioL (ROCALTROL) 0.5 MCG capsule Take 0.5 mcg by mouth daily. ??? carvediloL (COREG) 25 MG tablet Take 25 mg by mouth 2 (two) times daily with breakfast and dinner. ??? insulin aspart U-100 (NovoLOG) 100 unit/mL (3 mL) InPn Inject subcutaneously 3 (three) times daily before meals. ??? loratadine (CLARITIN) 10 mg tablet Take 10 mg by mouth daily. ??? NIFEdipine (ADALAT CC) 60 MG 24 hr tablet Take 60 mg by mouth daily. ??? sodium bicarbonate 650 MG tablet Take 1 tablet by mouth 4 (four) times daily. Allergies Allergen Reactions ??? Nsaids (Non-Steroidal Anti-Inflammatory Drug) Past Surgical History: Procedure Laterality Date ??? SECTION ??? GASTRIC BYPASS ??? TUBAL LIGATION Active Ambulatory Problems Diagnosis Date Noted ??? No Active Ambulatory Problems Resolved Ambulatory Problems Diagnosis Date Noted ??? No Resolved Ambulatory Problems Past 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: Diagnosis Date ??? Allergies ??? Anemia ??? CKD (chronic kidney disease) ??? Diabetes (HCC) ??? Hyperlipidemia ??? Hyperparathyroidism (HCC) ??? Hypertension Social History Socioeconomic History ??? Marital status: Spouse name: Not on file ??? Number [...] Social History Narrative ??? Not on file Social Determinants of Health Financial Resource Strain: Not on file Food Insecurity: Not on file Transportation Needs: Not on file Physical Activity: Not on file Stress: Not on file Social Connections: Not on file Intimate Partner Violence: Not on file Review of Systems Constitutional: Negative. HENT: Positive for congestion, ear discharge, sinus pressure and sinus pain. Eyes: Negative. Respiratory: Negative. Cardiovascular: Negative. Gastrointestinal: Positive for constipation. Endocrine: Negative. Genitourinary: Negative. Musculoskeletal: Negative. Skin: Negative. Allergic/Immunologic: Negative. Neurological: Negative. Hematological: Negative. Psychiatric/Behavioral: Negative. \ Objective: BP (!) 146/80 (BP Location: [...] and Affect: Mood normal. Judgment: Judgment normal. Assessment: Assessment 1. Stage 4 chronic kidney disease (HCC) 32-year-old female with chronic kidney disease related to complications of diabetes and hypertension. GFR now under 10%. She has been referred for PD catheter placement. She would appear to be a goodcandidate. Procedure and risk discussed, including bleeding, infection, failure of the catheter, aswell as others. She understands and gives consent. Plan: Patient scheduled for laparoscopic placement of peritoneal dialysis catheter on September 23, 2022 at [facility]. Electronically signed by Annmarie Nowak CMA - 09/13/2022 - 10:14 AM EST I NEEDLE MACHINE OPERATOR documented in this encounter Plan of Treatment Not on file documented as of this encounter Visit Diagnoses Diagnosis Stage 4 chronic kidney disease (HCC)- Primary documented in this encounter
--- OUTSIDE RECORDS SUMMARY | 2024-05-30 08:31 | XMS_ITS | Encounter Summary ---
Author Organization [employer] Address [address] [place] [address] Care Team Providers Care Saddle And Side Wire Stitcher Name Role Phone Unavailable Primary Care Provider Unavailabl e Encounter Details Date Type Department Care Team (Late st Contact Info) Description 01/08/2019 Transcribed Document [facility] [place] [place] Family Medicine [address] [place] [address] ProviderLaury MD [address] [place] [address] [id number] Social History Tobacco Use Types Packs/Day Years [...] Laury ProviderMD - 01/08/2019 12:31 AM CDT [facility] ADDRESS [place], [place] [phone] Name:Crystal Archer Visit Date:01/07/2019 18:52:00 Emergency Department Care Providers: Physician: Physician: Our doctors and staff appreciate your choice of [facility] for your emergency medical care. Read these instructions carefully. Please call us if you have any questions about your medical problem. [facility] Emergency Department [phone] [facility] Emergency Department [phone] [facility] Emergency Department [phone] Patient Education Materials Crystal Archersil has been [...] x-ray department to pick them up o [facility] # [phone] o [facility] # [phone] o [facility] # [phone] ?? If you had cultures done and [...] quit. o National Network of Tobacco Cessation [id number] o [place] [employer] o [place] [employer] [phone] o Sai/Manuel Mahendra [phone] FINANCIAL INFORMATION ?? [facility] provides financial counseling to anyone who requests our services. ?? Emergency Physicians are independently contracted to provide your care. You will receive a bill for the care provided to you by the Physician and/or the Physician Contract Management Specialist. This will be a separate bill from [...] to the Emergency Department. Patient Visit Summary Crystal Archer has been given the following list [...] as recommended Patient Signature / or Patient Tumbler Plater Provider Signature Date documented in this encounter Plan of Treatment Not on file documented as of this encounter Visit Diagnoses Not on filedocumented in this encounter
--- OUTSIDE RECORDS SUMMARY | 2024-05-30 08:31 | XMS_ITS | Encounter Summary ---
Author Organization [employer] Address [address] [place] [address] Care Team Providers Care Checkering Machine Adjuster Name Role Phone Unavailable Primary Care Provider Unavailabl e Encounter Details Date Type Department Care Team (Late st Contact Info) Description 04/25/2019 Abstract [facility] [address] [place] [address] Cb Renee MD [address] [place] [address] Social History Tobacco Use Types Packs/Day Years [...]
--- OUTSIDE RECORDS SUMMARY | 2024-05-30 08:31 | XMS_ITS | Encounter Summary ---
Author Organization [employer] Address [address] [place] [address] Care Team Providers Care Database Development Project Manager Name Role Phone Unavailable Primary Care Provider Unavailabl e Encounter Details Date Type Department Care Team (Late st Contact Info) Description 01/19/2020 Transcribed Document [facility] [place] [facility] [place] [address] ProviderLaury MD [address] [place] [address] [id number] Social History Tobacco Use Types Packs/Day Years [...] Conversion Note - Laury Conte MD - 01/19/2020 12:54 AM CDT Patient: FREDDIE ARCHER Age: 29 years Sex: Female : 1990 Associated Diagnoses: Post-operative complication; Vomiting; Hypoglycemia Author: CONSUELO REYES MD-EMR Basic Information Time seen: Date & time 01/18/2020 20:57:00. History source: Patient. Arrival mode: Private vehicle. History limitation: None. Additional information: Chief Complaint from Nursing Triage Note : Chief Complaint 01/18/2020 20:31 EDT Chief Complaint I THINK I AM DEHYDRATED, I HAD BARIATRIC SURGERY 01/03/19, GASTRIC SLEEVE, EVERYTIME I EAT OR DRINK I PUKE . History of Present Illness Patient is a 29 yo female with DM2 with insulin pump, ESRD pending fistula placement for initiation of dialysis who is 14 days s/p gastric sleeve surgery by Dr. Mejia and presents today with vomiting. The patient reports that since this AM she has only been able to keep down 6 oz of water. States that every time she takes a sip of water she feels like it gets stuck. She has vomited multiple times today, however denies nausea unless she takes a sip. Denies any abdominal pain, fever, melena, SOA, chest pain. Review of Systems Constitutional symptoms: Negative except as documented in HPI. Skin symptoms: Negative except as documented in HPI. Eye symptoms: Negative except as documented in HPI. ENMT symptoms: Negative except as documented in HPI. Respiratory symptoms: Negative except as documented in HPI. Cardiovascular symptoms: Negative except as documented in HPI. Gastrointestinal symptoms: Negative except as documented in HPI. Genitourinary symptoms Musculoskeletal symptoms: Negative except as documented in HPI. Neurologic symptoms: Negative except as documented in HPI. Psychiatric symptoms: Negative except as documented in HPI. Health Status Allergies: Allergic Reactions (Selected) Severity Not Documented NSAIDs- Kidney disease.. Medications: (Selected) Inpatient Medications Ordered Lactated Ringers Injection intravenous solution 1,000 mL: 100 mL/Hr, IntraVENous Documented Medications Documented FLUoxetine: 10 mg, Oral, Daily, 0 Refill(s) Multiple Vitamins oral tablet: 1 Tab, Oral, Daily, 30 Tab, 0 Refill(s) Vitamin D2 50,000 intl units (1.25 mg) oral capsule: 1 Cap, Oral, Weekly, 0 Refill(s) atorvastatin: 40 mg, Oral, Daily, 0 Refill(s) calcitriol: 0.25 mcg, Oral, Daily, 0 Refill(s) calcium acetate: 1,334 mg, Oral, TID, 0 Refill(s) carvedilol: 25 mg, Oral, BID, 0 Refill(s) gabapentin: 300 mg, Oral, BID, 0 Refill(s) hydrALAZINE: 25 mg, Oral, BID, 0 Refill(s) insulin lispro 100 units/mL injectable solution: 170 Units, SubCutaneous, Daily, insulin pump continuous delivery, 0 Refill(s) loratadine: 10 mg, Oral, Daily, 0 Refill(s) sodium bicarbonate 650 mg oral tablet: 2 Tab, Oral, BID, 60 Tab, 0 Refill(s). Past Medical/ Family/ Social History Medical history Reviewed as documented in chart. Surgical history: section x2 ([id number]). Dilation and curettage ([id number]). Tubal ligation ([id number]). wisdom teeth. kidney biopsy. EGD. Stomach biopsy. Gastric sleeve ([id number]).. Family history: Not significant, No family history items have been selected or recorded.. Social history: Social & Psychosocial Habits Alcohol 08/24/2019 Alcohol Use History, Social Habits No 10/03/2019 Alcohol Use History, Social Habits No Alcohol Use in Last Twelve Months No Nutrition/Health 08/24/2019 Caffeine intake amount: 6-12 drinks daily 10/03/2019 Caffeine intake amount: none Substance Abuse 08/24/2019 Recreational Drug Use History No Recreational Drug Use Last 12 Months No Tobacco 08/24/2019 Smoking Status Former smoker, quit more Smokeless Tobacco Status Never Years of Tobacco Use 20 Packs/Tins Daily 1.75 10/03/2019 Smoking Status Former smoker, quit more Smokeless Tobacco Status Never Month Tobacco Last Used 07/04/2020 . Problem list: Active Problems (8) At risk for sleep apnea DM (diabetes mellitus) HTN (hypertension) Hyperkalemia Hyperlipemia Kidney disease Neuropathy Retinopathy . Physical Examination Vital Signs Vital Signs/Vital Measures 01/19/2020 0:00 EDT Systolic Blood Pressure 152 mmHg HI Diastolic Blood Pressure 91 mmHg HI Mean Arterial Pressure (MAP)-BMDI 115 Heart Rate Monitored 74 bpm Respiratory Rate 18 Breaths/Min Oxygen Saturation 100 % Oxygen Therapy Mode Room air 01/18/2020 23:30 EDT Systolic Blood Pressure 140 mmHg Diastolic Blood Pressure 88 mmHg Mean Arterial Pressure (MAP)-BMDI 115 Heart Rate Monitored 80 bpm Respiratory Rate 16 Breaths/Min Oxygen Saturation 98 % Oxygen Therapy Mode Room air 01/18/2020 23:00 EDT Systolic Blood Pressure 147 mmHg HI Diastolic Blood Pressure 86 mmHg Mean Arterial Pressure (MAP)-BMDI 110 Heart Rate Monitored 79 bpm Respiratory Rate 16 Breaths/Min Oxygen Saturation 94 % Oxygen Therapy Mode Room air 01/18/2020 22:57 EDT Systolic Blood Pressure 148 mmHg HI Diastolic Blood Pressure 89 mmHg Mean Arterial Pressure (MAP)-BMDI 113 Heart Rate Monitored 79 bpm Respiratory Rate 18 Breaths/Min Oxygen Saturation 94 % Oxygen Therapy Mode Room air 01/18/2020 21:30 EDT Systolic Blood Pressure 133 mmHg Diastolic Blood Pressure 83 mmHg Peripheral Pulse Rate 88 bpm Respiratory Rate 18 Breaths/Min Oxygen Saturation 98 % Oxygen Therapy Mode Room air 01/18/2020 20:31 EDT Blood Pressure Location Arm, right upper Blood Pressure Source Non-Invasive BP Device Systolic Blood Pressure 114 mmHg Diastolic Blood Pressure 85 mmHg Temperature Source Oral Temperature Mode Fahrenheit Temperature, Fahrenheit 97.6 Deg F Clinical Temperature, C 36.4 Deg C Peripheral Pulse Rate 95 bpm Respiratory Rate 16 Breaths/Min Oxygen Saturation 99 % Oxygen Therapy Mode Room air . Measurements 01/18/2020 20:31 EDT Height Source Stated Height Entry Format Foard Height/Length, BAHAMIAN (ft) 5 ft Height/Length BAHAMIAN 5 Inch CLINICALHEIGHT 165.1 cm Jackson Body Weight 56.59 kg Weight Source, ED Standing scale Weight Entry Format Foard Weight Pakistani lb 230.8 lb CLINICALWEIGHT 104.91 kg Body Surface Area (BSA) 2.1 m2 Body Mass Index 38.5 kg/m2 HI . Oxygen Saturation 01/19/2020 0:00 EDT Oxygen Saturation 100 % 01/18/2020 23:30 EDT Oxygen Saturation 98 % 01/18/2020 23:00 EDT Oxygen Saturation 94 % 01/18/2020 22:57 EDT Oxygen Saturation 94 % 01/18/2020 21:30 EDT Oxygen Saturation 98 % 01/18/2020 20:31 EDT Oxygen Saturation 99 % . General: Alert, no acute distress. Skin: Warm, dry. Head: Normocephalic, atraumatic. Neck: Supple. Eye: Normal conjunctiva. Cardiovascular: Regular rate and rhythm, No murmur, Normal peripheral perfusion. Respiratory: Lungs are clear to auscultation, respirations are non-labored, breath sounds are equal. Gastrointestinal: Soft, Nontender, Non distended, Normal bowel sounds, Laparascopic incisions with good healing. . Back: Nontender, Normal range of motion. Lymphatics: No lymphadenopathy. Psychiatric: Cooperative, appropriate mood & affect. Medical Decision Making Results review: Lab results : Lab Results 01/19/2020 1:02 EDT Glucose POC2 93 mg/dL 01/18/2020 23:57 EDT Glucose POC2 131 mg/dL HI 01/18/2020 22:36 EDT HCG Serum Quant <1.0 mIU/mL NA 01/18/2020 22:20 EDT Glucose POC2 123 mg/dL HI 01/18/2020 21:21 EDT Sodium Level 145 mmol/L Potassium Level 4.5 mmol/L Chloride Level 119 mmol/L HI Carbon Dioxide Level 20 mmol/L LOW Anion Gap 10 Glucose Level 49 mg/dL LOW Blood Urea Nitrogen 46 mg/dL HI Creatinine Level 5.29 mg/dL HI eGFR 12 mL/min/1.73m2 LOW eGFR NonAfrican 10 mL/min/1.73m2 LOW Bun/Creatinine 8.7 Calcium Level 8.2 mg/dL LOW Protein Total 7.1 Gram/dL Albumin Level 3.1 Gram/dL LOW Globulin 4.0 Gram/dL A/G Ratio 0.8 LOW Bilirubin Total 0.2 mg/dL Alk Phos 97 Units/Liter AST 18 Units/Liter ALT 37 Units/Liter Lipase Level 661 Units/Liter HI WBC 10.0 K/uL RBC 3.39 Million/uL LOW Hgb 10.1 Gram/dL LOW Hct 32.0 % LOW MCV 94.4 fL MCH 29.8 pg MCHC 31.6 Gram/dL LOW Platelet Count 226 K/uL MPV 12.6 fL HI RDW 12.5 % Neut % 50.6 % Neut # 5.08 K/uL Lymph % 39.0 % Lymph # 3.92 K/uL HI Trimble % 7.3 % Trimble # 0.73 K/uL Eos % 2.4 % Eos # 0.24 K/uL Baso % 0.4 % Baso # 0.04 K/uL Slide Review No IG# 0 x10(3)/uL IG% 0 % . Notes: Preliminary ReportNAME:FREDDIE ARCHER / SEX:1990 / FemaleMRN / ACC#:[id number] / [id number] ORDERING PHYSICIAN:Ordering Provider, UpdateEXAM REQUESTED:[id number]--II ABDOMEN & PELVIS W/O CONTRAST [facility] NAME:MD Ashe[facility]:status post gastric sleeve surgery on 01-04-2020 unable keep any food or drink down since, dehydration and weaknessFINDINGS:Status post gastric sleeve procedure without clear signs of perforation or fluid collection.No urinary tract stone or hydronephrosis.2.4 cm cystic lesion in the left ovary.. Reexamination/ Reevaluation Case discussed with Dr. Reyes who will assume care. CT scan pending. Time: 01/19/2020 01:02:00 . Course: improving. Assessment: Patient was seen by ANDREA Rios, patient complained of having vomiting all day, unable to keep anything down, had gastric sleeve done by Dr. Mejia on January 04, 2020, patient has history of diabetes, renal failure, patient initial blood sugar was 49, patient was given D50, patient denies any abdominal pain, no diarrhea, On examination: Vitals: see nursing note No acute distress HEENT: Atraumatic normocephalic, pupils equal round reactive to light, extraocular muscles intact Neck: supple, no lymph nodes, no JVD, no meningeal signs Respiratory: Lungs clear to auscultation and percussion, no rhonchi, wheezing or rales CVS: Normal S1 and S2 no murmur gallop or rub Abdomen: soft, no tenderness, no guarding, bowel sounds present, no organs felt Back: No swelling, no redness, no tenderness, range of motion is full Extremities: No swelling, no redness, no tenderness, no signs of DVT Skin: No rash, no cyanosis, capillary refill brisk SUPERVISOR TELEPHONE INFORMATION: Awake alert oriented ??4, nonfocal exam Psych: Normal mood and affect. Notes: d/w pt labs/imaging results, d/d of sx, advised to admit pt to hospital, pt agreed for admission.. Impression and Plan Diagnosis Post-operative complication - Discharge, Medical Vomiting - Discharge, Medical Vomiting - Admitting, Medical Hypoglycemia - Discharge, Emergency medicine, Medical Post-operative complication - Discharge, Medical Calls-Consults - 01/19/2020 01:08:00 , LARRY MARTINES MD-BRANDEE, phone call, recommends will admit pt. - 01/19/2020 01:24:00 , LAZARA KAPLAN MD, phone call, recommends will admit pt. Plan Condition: Stable. Disposition: Admit Admit/Transfer/Discharge: Place in Observation (Order): Start: 01/19/2020 1:30 EDT, Observation Reason: Vomiting, hypoglycemia, renal failure, Unit type: Med-Surg, Admitting: LAZARA KAPLAN MD. Counseled: Patient, Family, Regarding diagnosis, Regarding diagnostic results, Regarding treatment plan, Regarding prescription, Patient indicated understanding of instructions. documented in this encounter Plan of Treatment Not on file documented as of this encounter Visit Diagnoses Not on filedocumented in this encounter
--- OUTSIDE RECORDS SUMMARY | 2024-05-30 08:31 | XMS_ITS | Encounter Summary ---
Author Organization [employer] Address [address] [place] [address] Care Team Providers Care Rn Correctional Name Role Phone Unavailable Primary Care Provider Unavailabl e Encounter Details Date Type Department Care Team (Late st Contact Info) Description 01/04/2020 Transcribed Document [facility] [place] Family Medicine [address] [place] [address] ProviderLaury MD [address] [place] [address] Social History Tobacco Use Types [...] Conversion Note - Laury ProviderMD - 01/04/2020 9:08 AM CDT Event Note Entered On: 01/04/2020 9:09 EDT Performed On: 01/04/2020 9:08 EDT by OSMAR MCGRATH RN Event Note Event Date/Time : 01/04/2020 9:06 EDT Description of Event : Dr. Hoskins and Dr. Mejia reviewed labs OSMAR MCGRATH RN - 01/04/2020 9:08 EDT documented in this encounter Plan of Treatment Not on file documented as of this encounter Visit Diagnoses Not on filedocumented in this encounter
--- OUTSIDE RECORDS SUMMARY | 2024-05-30 08:31 | XMS_ITS | Encounter Summary ---
Author Organization [employer] Address [address] [place] [address] Care Team Providers Care Group Supervisor Yard Name Role Phone Unavailable Primary Care Provider Unavailabl e Encounter Details Date Type Department Care Team (Late st Contact Info) Description 01/18/2020 Transcribed Document [facility] [place] Family Medicine [address] [place] [address] ProviderLaury MD [address] [place] [address] Social History Tobacco Use Types [...] ProviderMD - 01/18/2020 8:28 PM CDT ED Triage Entered On: 01/18/2020 20:47 EDT Performed On: 01/18/2020 20:31 EDT by MARKIE PANG, MACHINIST 2ND SHIFT Triage Across the Room Chief Complaint : I THINK I AM DEHYDRATED, I HAD BARIATRIC SURGERY 01/04/20, GASTRIC SLEEVE, EVERYTIME I EAT OR DRINK I PUKE FRANCISCO REYES RN - 01/19/2020 1:21 EDT Triage Date/Time : 01/18/2020 20:31 EDT MARKIE PANG RN - 01/18/2020 20:31 EDT DCP GENERIC CODE Tracking Group : [facility] Tracking Acuity : 2 - Emergent MARKIE PANG RN - 01/18/2020 20:31 EDT Mode of Arrival : Ambulatory Transported to ED by : Private vehicle To Room Via : Ambulate Accompanied By : Unaccompanied ED Vital Signs : Document Height & Weight : Document ED Allergies : Document ED Reason for Visit : Document Tetanus Immunization : Greater than 5 years MARKIE PANG RN - 01/18/2020 20:31 EDT Infectious Disease History Has the patient ever been tested for COVID-19? : No, Patient stated COVID19 Screening : No Experiencing Infectious Disease Symptoms : No symptoms Physical contact outside [place] in the last 30 days : No Infectious Disease Symptoms Score : 0 Infectious Disease History : Influenza Tuberculosis Symptoms : None MARKIE PANG RN - 01/18/2020 20:31 EDT Vital Signs ED Temperature Source : Oral Temperature Mode : Fahrenheit Temperature, Fahrenheit : 97.6 Deg F Clinical Temperature, C : 36.4 Deg C Oxygen Therapy Mode : Room air Peripheral Pulse Rate : 95 bpm Respiratory Rate : 16 Breaths/Min Blood Pressure Location : Arm, right upper Blood Pressure Source : Non-Invasive BP Device Systolic Blood Pressure : 114 mmHg Diastolic Blood Pressure : 85 mmHg Oxygen Saturation : 99 % MARKIE PANG RN - 01/18/2020 20:31 EDT Allergy (As Of: 01/18/2020 20:47:18 EDT) Allergies (Active) NSAIDs Estimated Onset Date: Unspecified ; Reactions: kidney disease ; Created By: Noelle Umanzor Rn; Reaction Status: Active ; Category: Drug ; Substance: NSAIDs ; Type: Allergy ; Updated By: Noelle Umanzor Rn; Reviewed Date: 10/03/2019 10:36 EDT Diagnosis Control ED (As Of: 01/18/2020 20:47:18 EDT) Problems(Active) At risk for sleep apnea (IMO :55085399 ) Name of Problem: At risk for sleep apnea ; Recorder: SYSTEM, SYSTEM; Confirmation: Confirmed ; Classification: Medical ; Code: [id number] ; Last Updated: 08/24/2019 10:25 EST ; Life Cycle Date: 08/24/2019 ; Life Cycle Status: Active ; Vocabulary: IMO DM (diabetes mellitus) (SNOMED CT :127224279 ) Name of Problem: DM (diabetes mellitus) ; Recorder: ANGE Green RN; Confirmation: Confirmed ; Classification: Medical ; Code: 817101940 ; Contributor System: PowerChart ; Last Updated: 08/24/2019 10:17 EST ; Life Cycle Date: 08/24/2019 ; Life Cycle Status: Active ; Vocabulary: SNOMED CT HTN (hypertension) (SNOMED CT :5972716083 ) Name of Problem: HTN (hypertension) ; Recorder: ANGE Green RN; Confirmation: Confirmed ; Classification: Medical ; Code: 8498615907 ; Contributor System: PowerChart ; Last Updated: 08/24/2019 10:16 EST ; Life Cycle Date: 08/24/2019 ; Life Cycle Status: Active ; Vocabulary: SNOMED CT Hyperkalemia (SNOMED CT :34530578 ) Name of Problem: Hyperkalemia ; Recorder: Noelle Umanzor Rn; Confirmation: Confirmed ; Classification: Medical ; Code: 82247556 ; Contributor System: PowerChart ; Last Updated: 10/03/2019 10:52 EDT ; Life Cycle Date: 10/03/2019 ; Life Cycle Status: Active ; Vocabulary: SNOMED CT Hyperlipemia (SNOMED CT :56870486 ) Name of Problem: Hyperlipemia ; Recorder: ANGE Green RN; Confirmation: Confirmed ; Classification: Medical ; Code: 55479833 ; Contributor System: PowerChart ; Last Updated: 08/24/2019 10:17 EST ; Life Cycle Date: 08/24/2019 ; Life Cycle Status: Active ; Vocabulary: SNOMED CT Kidney disease (SNOMED CT :612651288 ) Name of Problem: Kidney disease ; Recorder: ANGE Green RN; Confirmation: Confirmed ; Classification: Medical ; Code: 238818492 ; Contributor System: PowerChart ; Last Updated: 08/24/2019 10:17 EST ; Life Cycle Date: 08/24/2019 ; Life Cycle Status: Active ; Vocabulary: SNOMED CT Neuropathy (SNOMED CT :3986319711 ) Name of Problem: Neuropathy ; Recorder: ANGE Green RN; Confirmation: Confirmed ; Classification: Medical ; Code: 6435352337 ; Contributor System: PowerChart ; Last Updated: 08/24/2019 10:18 EST ; Life Cycle Date: 08/24/2019 ; Life Cycle Status: Active ; Vocabulary: SNOMED CT Retinopathy (SNOMED CT :76457601 ) Name of Problem: Retinopathy ; Recorder: Noelle Umanzor Rn; Confirmation: Confirmed ; Classification: Medical ; Code: 60799208 ; Contributor System: PowerChart ; Last Updated: 10/03/2019 10:52 EDT ; Life Cycle Date: 10/03/2019 ; Life Cycle Status: Active ; Vocabulary: SNOMED CT Diagnoses(Active) Dehydration Date: 01/18/2020 ; Diagnosis Type: Reason For Visit ; Confirmation: Complaint of ; Clinical Dx: Dehydration ; Classification: Medical ; Clinical Service: Emergency medicine ; Code: PNED ; Probability: 0 ; Diagnosis Code: [id number] Vomiting Date: 01/18/2020 ; Diagnosis Type: Reason For Visit ; Confirmation: Complaint of ; Clinical Dx: Vomiting ; Classification: Medical ; Clinical Service: Emergency medicine ; Code: PNED ; Probability: 0 ; Diagnosis Code: [id number] ED Height and Weight Height Source : Stated Height Entry Format : [place] Height, Feet : 5 ft(Converted to: 152 cm, 60 Inch) Height, Inches : 5 Inch(Converted to: 0 ft 5 Inch, 12.70 cm) Clinical Height : 165.1 cm Weight Source, ED : Standing scale Weight Entry Format : [place] Weight, Pounds : 230.8 lb Clinical Dosing Weight : 104.91 kg Body Surface Area (BSA) : 2.1 m2 Body Mass Index : 38.5 kg/m2 (HI) [place] Body Weight (IBW) : 56.59 kg MARKIE PANG RN - 01/18/2020 20:31 EDT documented in this encounter Plan of Treatment Not on file documented as of this encounter Visit Diagnoses Not on filedocumented in this encounter
--- OUTSIDE RECORDS SUMMARY | 2024-05-30 08:31 | XMS_ITS | Encounter Summary ---
Author Organization [employer] Address [address] [place] [address] Care Team Providers Care Cold Rolling Coordinator Name Role Phone Unavailable Primary Care Provider Unavailabl e Encounter Details Date Type Department Care Team (Late st Contact Info) Description 01/04/2020 Transcribed Document [facility] Family Medicine [address] [place] [address] ProviderLaury MD [address] [place] [address] Social History Tobacco Use Types [...] Conversion Note - Laury ProviderMD - 01/04/2020 5:00 PM CDT Chart Check - Review Order Profile Entered On: 01/04/2020 19:04 EDT Performed On: 01/04/2020 19:04 EDT by Krissy Ellis RN Chart Check Powerplans Initiated/Discontinued as Appropriate : Yes All Active Orders Reviewed : Yes Krissy Ellis RN - 01/04/2020 19:04 EDT Electronically signed by Rochelle [facility] Conversion Alarm Signaler Cerner at 11/02/2022 10:03 AM CDT documented in this encounter Plan of Treatment Not on file documented as of this encounter Visit Diagnoses Not on filedocumented in this encounter
--- OUTSIDE RECORDS SUMMARY | 2024-05-30 08:31 | XMS_ITS | Encounter Summary ---
Author Organization [employer] Address [address] [place] [address] Care Team Providers Care Car Runner Name Role Phone Unavailable Primary Care Provider Unavailabl e Encounter Details Date Type Department Care Team (Late st Contact Info) Description 01/05/2020 Transcribed Document [facility] [place] [address] [place] [address] ProviderLaury MD [address] [place] [address] Social History Tobacco Use Types Packs/Day [...] Conversion Note - Laury ProviderMD - 01/05/2020 8:27 AM CDT Initial Discharge Planning Entered On: 01/05/2020 8:28 EDT Performed On: 01/05/2020 8:27 EDT by CRISTOBAL HANSEN, RN-Property Claims Adjuster Initial Assessment I Previously Documented Living Environment : No qualifying data available. Living Situation : Home Patient Lives With : Dependent Child/Children, Significant other(s) Emergency Contact #1 : Jaquan Emergency Contact #1 Emergency Contact #1 Relationship : partner Emergency Contact #2 : . Emergency Contact #2 Phone Number : . Emergency Contact #2 Relationship : . Enter Doctors Name : Jaquan Conley Does Patient have PCP Listed? : Yes CRISTOBAL HANSEN RN-Property Claims Adjuster - 01/05/2020 8:27 EDT Initial Assessment II Sensory and Motor Deficits : None Current Home Treatments and Equipment : None CRISTOBAL HANSEN RN-Care Manager - 01/05/2020 8:27 EDT Discharge Needs I Anticipated Discharge Date : 01/05/2020 EDT Anticipated Discharge To, CM : Home with family care Current Home Treatment/Equipment : Current Home Treatment/Equipment No qualifying data available. Post Acute/Home Treatments : None Documentation Status Complete : Yes CRISTOBAL HANSEN RN-Care Manager - 01/05/2020 8:27 EDT Discharge Needs II Professional Skilled Services : Professional Skilled Services No qualifying data available. Needs Assistance with Transportation : No Discharge Options Discussed with Patient : Discharge transportation, Outpatient services CRISTOBAL HANSEN RN-Property Claims Adjuster - 01/05/2020 8:27 EDT Narrative Note Narrative Note : Patient underwent laparoscopic gastrectomy sleeve. Lives at home with family, iADLs. Plan is to return home at hi, no services needed..................sds CRISTOBAL HANSEN RN-Property Claims Adjuster - 01/05/2020 8:27 EDT Electronically signed by Zuleyka Byrd Conversion Psychological Stress Evaluator Cerner at 11/02/2022 10:09 AM CDT documented in this encounter Plan of Treatment Not on file documented as of this encounter Visit Diagnoses Not on filedocumented in this encounter
--- OUTSIDE RECORDS SUMMARY | 2024-05-30 08:31 | XMS_ITS | Encounter Summary ---
Author Organization [employer] Address [address] [place] [address] Care Team Providers Care Agriculture Mechanic Name Role Phone Unavailable Primary Care Provider Unavailabl e Encounter Details Date Type Department Care Team (Late st Contact Info) Description 08/02/2022 [facility] [address] [facility] [address] [place] [address] John Garcia MD [address] [address] [place] [address] Social History Tobacco Use Types Packs/Day Years [...] Procedure Name Priority Date/Time Associated Diagnosis Comments EXTERNAL LAB - MISC Routine 06/16/2022 documented in this encounter Results * EXTERNAL LAB - MISC (06/16/2022) John Garcia MD LAB BLOOD ORDERABLES Final Resu lt documented in this encounter Visit Diagnoses Not on filedocumented in this encounter
--- OUTSIDE RECORDS SUMMARY | 2024-05-30 08:31 | XMS_ITS | Encounter Summary ---
Author Organization [employer] Address [address] [place] [address] Care Team Providers Care Line Rider Name Role Phone Unavailable Primary Care Provider Unavailabl e Encounter Details Date Type Department Care Team (Late st Contact Info) Description 01/19/2020 Transcribed Document [facility] [place] [address] [place] [address] ProviderLaury MD [address] [place] [address] Social History Tobacco Use Types [...] Laury ProviderMD - 01/19/2020 3:30 PM CDT Stroke/Warfarin Instructions Entered On: 01/19/2020 15:30 EDT Performed On: 01/19/2020 15:30 EDT by OCTAVIO BRAND RN Stroke/Warfarin Instructions Stroke/TIA Discharge Ins : N/A Warfarin Discharge Ins : N/A OCTAVIO BRAND RN - 01/19/2020 15:30 EDT Electronically signed by Interface, [facility] Conversion Co Teacher Cerner at 11/02/2022 10:02 AM CDT documented in this encounter Plan of Treatment Not on file documented as of this encounter Visit Diagnoses Not on filedocumented in this encounter
--- OUTSIDE RECORDS SUMMARY | 2024-05-30 08:32 | XMS_ITS | Encounter Summary ---
Author Organization [employer] Address [address] [place] [address] Care Team Providers Care Underground Utility Locator Name Role Phone Unavailable Primary Care Provider Unavailabl e Encounter Details Date Type Department Care Team (Late st Contact Info) Description 09/26/2018 Transcribed Document [facility] [place] [address] [place] [address] ProviderLaury MD [address] [place] [id number] Social History Tobacco Use Types Packs/Day Years Used Date Smoking Tobacco: Never Assessed Comments Unknown Sex and Gender Information Value Date Recorded Sex Assigned at Female 01/12/2022 7:15 PM CDT Legal Sex Female 7:15 PM CDT Gender Identity Female 01/12/2022 7:15 PM CDT Sexual Orientation Not on file documented as of this encounter Miscellaneous Notes * Cerner Conversion Note - Laury ProviderMD - 09/26/2018 10:56 PM CDT [facility] [address] [place], [place] [phone] Name:Crystal Archer Visit Date:09/26/2018 16:44:00 Emergency Department Care Providers: Physician: INDIO PEREA Physician: Our doctors and staff appreciate your choice of [facility] for your emergency medical care. Read these instructions carefully. Please call us if you have any questions about your medical problem. [facility] Emergency Department [phone] [facility] Emergency Department [phone] [facility] Emergency Department [phone] Patient Education Materials Crystal Archersil has been given the following patient education materials: Urology Hematuria, Adult Hematuria is blood in your urine. It can be caused by a bladder infection, kidney infection, prostate infection, kidney stone, or cancer of your urinary tract. Infections can usually be treated with medicine, and a kidney stone usually will pass through your urine. If neither of these is the cause of your hematuria, further workup to find out the reason may be needed. It is very important that you tell your health care provider about any blood you see in your urine, even if the blood stops without treatment or happens without causing pain. Blood in your urine that happens and then stops and then happens again can be a symptom of a very serious condition. Also, pain is not a symptom in the initial stages of many urinary cancers. Follow these instructions at home: ??? Drink lots of fluid, 3?4 quarts a day. If you have been diagnosed with an infection, cranberry juice is especially recommended, in addition to large amounts of water. ??? Avoid caffeine, tea, and carbonated beverages because they tend to irritate the bladder. ??? Avoid alcohol because it may irritate the prostate. ??? Take all medicines as directed by your health care provider. ??? If you were prescribed an antibiotic medicine, finish it all even if you start to feel better. ??? If you have been diagnosed with a kidney stone, follow your health care provider's instructions regarding straining your urine to catch the stone. ??? Empty your bladder often. Avoid holding urine for long periods of time. ??? After a bowel movement, women should cleanse front to back. Use each tissue only once. ??? Empty your bladder before and after sexual intercourse if you are a female. Contact a health care provider if: ??? You develop back pain. ??? You have a fever. ??? You have a feeling of sickness in your stomach (nausea) or vomiting. ??? Your symptoms are not better in 3 days. Return sooner if you are getting worse. Get help right away if: ??? You develop severe vomiting and are unable to keep the medicine down. ??? You develop severe back or abdominal pain despite taking your medicines. ??? You begin passing a large amount of blood or clots in your urine. ??? You feel extremely weak or faint, or you pass out. This information is not intended to replace advice given to you by your health care provider. Make sure you discuss any questions you have with your health care provider. Document Released: 07/04/2006 Document Revised: 12/09/2016 Document Reviewed: 03/04/2014 [employer] Patient Education ? 2017 [employer] FOLLOW UP CARE Most conditions that require [...] x-ray department to pick them up o [facility] # [phone] o [facility] # [phone] o [facility] # [phone] ?? If you had cultures done and [...] quit. o National Network of Tobacco Cessation [id number]-FIEH-NOW o [employer] o [employer] 7-313021-8611 o Sai/Manuel Mccray [phone] FINANCIAL INFORMATION ?? [facility] provides financial counseling to anyone who requests our services. ?? Emergency Physicians are independently contracted to provide your care. You will receive a bill for the care provided to you by the Physician and/or the Physician Metal Dresser. This will be a separate bill from [...] prescriptions and follow-up instructions: Patient Education Materials: Urology Hematuria, Adult Follow-Up Instructions: Follow Up With: Where: When: Follow up with primary care provider Within 5 to 7 days Comments: I, Crystal Archer, have received a copy of these discharge instructions and acknowledge understanding of these instructions. . I understand that my condition may require more care and will arrange for further treatment as recommended Patient Signature / or Patient Supervisor Mails Provider Signature Date documented in this encounter Plan of Treatment Not on file documented as of this encounter Visit Diagnoses Not on filedocumented in this encounter
--- OUTSIDE RECORDS SUMMARY | 2024-05-30 08:32 | XMS_ITS | Encounter Summary ---
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 [facility] Emergency Department Depart Summary PERSON INFORMATION Name Crystal Archer Age 27 Years 1990 Sex Female Language PCP Marital Status Phone [phone] Visit Id Visit Reason Specialty Enc Type Emergency Med Service Referred by Track Group [facility] Discharge Tracking Id [id number] Checkout 08/03/2018 14:32:57 Checkin 08/03/2018 13:52:00 Acuity 3 - Urgent [facility] Dispo Type Arrival 08/03/2018 13:52:00 Reg Status LOS 000 00:40 Address: [address] [place] [address] [place] [address] POWERFORMS PHYSICIAN NOTES VITALS INFORMATION Vital Sign Triage Temp 98.1 Temp Route Oral/Mouth Pulse Rate 90 Respiratory Rate 18 Blood Pressure 152/ 87 LOCATION INFORMATION Arrival Nurse Unit Room Bed 08/03/2018 13:52:00 [facility] ED Waitroom ([facility]) 08/03/2018 13:55:29 [facility] ED 3 08/03/2018 14:32:57 [facility] ED Checkout ([facility]) MEDICAL INFORMATION Allergy Info: No Known Allergies PATIENT EDUCATION INFORMATION Instructions: Follow up: DIAGNOSIS documented in this encounter Plan of Treatment Not on file documented as of this encounter Visit Diagnoses Not on filedocumented in this encounter
--- OUTSIDE RECORDS SUMMARY | 2024-05-30 08:32 | XMS_ITS | Encounter Summary ---
Author Organization [employer] Address [address] [place] [address] Care Team Providers Care Gravedigger Name Role Phone Unavailable Primary Care Provider Unavailabl e Encounter Details Date Type Department Care Team (Late st Contact Info) Description 09/26/2018 Transcribed Document [facility] [place] [address] ProviderLaury MD [address] [place] [address] Social History Tobacco Use Types Packs/Day [...] Conversion Note - Laury ProviderMD - 09/26/2018 8:51 PM CDT [facility] Triage ED Entered On: 09/26/2018 16:55 EDT Performed On: 09/26/2018 16:51 EDT by Marry Erickson Triage Assessment Triage Date/Time : 09/26/2018 16:51 EDT Marry Erickson - 09/26/2018 16:51 EDT DCP GENERIC CODE Tracking Acuity : 3 - Urgent [facility] Tracking Group : [facility] Marry Ramírez 09/26/2018 16:51 EDT ED Visit Reason : Urinary/Voiding Complaints Primary Care Provider : Rema Ferreira, Rand Tacker Accompanied By : Family/Spouse/SO Arrival Mode : Ambulatory Chief Complaint : PT. PRESENTS TO ER WITH C/O BLOOD IN URINE. PT. REPORTS SHE WAS SEEN BY PRIMARY YESTERDAY FOR SAME SYMPTOMS REPORTS WAS CHECKED FOR UTI NEGATIVE. DENIES NAUSEA. 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 Hx : No Heart Attack : No Heart Failure : No High Blood Pressure : Yes High Cholesterol : Yes Liver Disease : No Renal : Yes, stage IV Seizure : No Surgical History : Yes, 2 , insuin pump, kidney bx Thyroid Disease : No AIDS/HIV : No MRSA : No Tuberculosis : No VRE : No Other 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 : No Pathway Planning : No Marry Erickson 09/26/2018 16:51 EDT Temp : 98.7 Deg F(Converted to: 37.1 Deg C) Temp Route : Oral/Mouth Systolic Blood Pressure : 140 mmHg Diastolic Blood Pressure : 72 mmHg Pulse Rate : 102 bpm (HI) Respiratory Rate : 20 Breaths/Min Oxygen Saturation : 98 % Pain Symptoms : No LMP date : 09/06/2018 EST Height/Weight Med Rec : Open Medication Profile, Med Rec : Open Allergy Profile, Med Rec : Open Workman's Compensation : No Preferred Communication Mode : Verbal Languages : [place] Child/Parent Domestic Concerns : None Threats of Suicide : No Marry Erickson 09/26/2018 16:51 EDT Height and Weight Height Source : Stated Height Entry Format : [place] Height, Inches : 65 Inch(Converted to: 5 ft 5 Inch, 165.10 cm) Clinical Height : 165.1 cm Weight Source : Stated Type of Weight Measurement Est : [place] Weight, est lb : 213 lb Estimated Clinical Dosing Weight : 96.82 kg [place] Body Weight : 57 kg Body Surface Area Estimated : 2.11 m2 Body Mass Index Estimated : 35.52 kg/m2 Marry Erickson R - 09/26/2018 16:51 EDT Medication List ED Medications Reviewed : Yes Source of Information : Patient Marry Erickson R - 09/26/2018 16:51 EDT Medication List (As Of: 09/26/2018 16:55:34 EDT) Home Meds Status: Processing ; Ordered As Mnemonic: amLODIPine 2.5 mg oral tablet ; Simple Display Line: 2.5 mg, 1 Tab, Oral, Daily, 30 Tab, 0 Refill(s) ; Action Display: Document ; Catalog Code: amLODIPine ; Order Dt/Tm: 09/26/2018 16:55:11 fenofibrate : fenofibrate ; Status: Documented ; Ordered As Mnemonic: fenofibrate ; Simple Display Line: 160 mg, Oral, Daily, 0 Refill(s) ; Catalog Code: fenofibrate ; Order Dt/Tm: 08/03/2018 14:11:10 calcium acetate : calcium acetate ; Status: Documented ; Ordered As Mnemonic: calcium acetate ; Simple Display Line: 0 Refill(s) ; Catalog Code: calcium acetate ; Order Dt/Tm: 09/07/2018 15:29:19 atorvastatin : atorvastatin ; Status: Documented ; Ordered As Mnemonic: atorvastatin ; Simple Display Line: 0 Refill(s) ; Catalog Code: atorvastatin ; Order Dt/Tm: 09/07/2018 15:28:07 acetaminophen-HYDROcodone : acetaminophen-HYDROcodone ; Status: Documented ; Ordered As Mnemonic: Reliance 5 mg-325 mg oral tablet ; Simple Display Line: 0 Refill(s) ; Catalog Code: acetaminophen-HYDROcodone ; Order Dt/Tm: 09/07/2018 15:27:28 sodium bicarbonate : sodium bicarbonate ; Status: Documented ; Ordered As Mnemonic: sodium bicarbonate ; Simple Display Line: 0 Refill(s) ; Catalog Code: sodium bicarbonate ; Order Dt/Tm: 08/03/2018 14:16:25 furosemide : furosemide ; Status: Documented ; Ordered As Mnemonic: Lasix 40 mg oral tablet ; Simple Display Line: 0 Refill(s) ; Catalog Code: furosemide ; Order Dt/Tm: 08/03/2018 14:13:11 insulin lispro : insulin lispro ; Status: Documented ; Ordered As Mnemonic: Admelog 100 units/mL injectable solution ; Simple Display Line: 0 Refill(s) ; Catalog Code: insulin lispro ; Order Dt/Tm: 08/03/2018 14:12:16 carvedilol : carvedilol ; Status: Documented ; Ordered As Mnemonic: carvedilol 3.125 mg oral tablet ; Simple Display Line: 0 Refill(s) ; Catalog Code: carvedilol ; Order Dt/Tm: 08/03/2018 14:12:57 amLODIPine : amLODIPine ; Status: Documented ; Ordered As Mnemonic: amLODIPine 2.5 mg oral tablet ; Simple Display Line: 0 Refill(s) ; Catalog Code: amLODIPine ; Order Dt/Tm: 08/03/2018 14:12:44 aspirin : aspirin ; Status: Documented ; Ordered As Mnemonic: aspirin 81 mg oral tablet ; Simple Display Line: 0 Refill(s) ; Catalog Code: aspirin ; Order Dt/Tm: 08/03/2018 14:11:26 gabapentin : gabapentin ; Status: Documented ; Ordered As Mnemonic: gabapentin 300 mg oral capsule ; Simple Display Line: 0 Refill(s) ; Catalog Code: gabapentin ; Order Dt/Tm: 08/03/2018 14:11:48 loratadine : loratadine ; Status: Documented ; Ordered As Mnemonic: loratadine 10 mg oral capsule ; Simple Display Line: 0 Refill(s) ; Catalog Code: loratadine ; Order Dt/Tm: 08/03/2018 14:10:52 Allergy Profile (As Of: 09/26/2018 16:55:34 EDT) Allergies (Active) No Known Allergies Estimated Onset Date: Unspecified ; Created By: Blanca Chisholm RN; Reaction Status: Active ; Category: Drug ; Substance: No Known Allergies ; Type: Allergy ; Updated By: Blanca Chisholm RN; Reviewed Date: 09/07/2018 15:26 EST documented in this encounter Plan of Treatment Not on file documented as of this encounter Visit Diagnoses Not on filedocumented in this encounter
--- OUTSIDE RECORDS SUMMARY | 2024-05-30 08:32 | XMS_ITS | Encounter Summary ---
Author Organization [facility] Address [address] [place] [address] Care Team Providers Care Brazing Machine Operator Name Role Phone Maria A Soria PLUG GROWER Primary Care Provider [phone] Reason for Visit * Reason Onset Date Comments FYI 03/16/2023 Encounter Details Date Type Department Care Team (Late st Contact Info) Description 03/16/2023 Telephone [facility] [address] [place] [phone] Maria A Soria, PLUG GROWER [address] [place] [address] FYI Social History Tobacco Use Types Packs/Day Years Used Date Smoking Tobacco: Some Days Cigarettes 0.5 10 Smokeless Tobacco: Never Alcohol Use Standard Drinks/Week Comments No 0 (1 standard drink = 0.6 oz pur e alcohol) AUDIT-C Answer Date Recorded Q1: How often do you have a drink containing alc ohol? Never 08/16/2020 Average Number of Drinks Not on file 021 Frequency of Binge Drinking Not on file 07/20 PHQ-2 Answer Date Recorded Retired PHQ-9: Brief Depression Severity Measure Score 0 02/15/2023 PHQ-2 Answer Date Recorded Retired PHQ-9: Brief Depression Severity Measure Score 0 02/15/2023 Comments No Sex and Gender Information Value Date Recorded Sex Assigned at Not on file Legal Sex Female 3:21 PM EDT Gender Identity Not on file Sexual Orientation Not on file documented as of this encounter Miscellaneous Notes * Telephone Encounter - Betsey Roach MA - 03/16/2023 11:31 AM EDT Called and advised patient that it would take a couple days to get this test back * Telephone Encounter - Jessenia Gomes RegSched Rep - 03/16/2023 11:21 AM EDT Caller: Crystal Archer Relationship: Self Best call back number: [phone] What was the call regarding: PATIENT STATES THAT SHE HAD THE C-DIFF TEST AND TURNED IT IN TO [facility] documented in this encounter Plan of Treatment Not on file documented as of this encounter Visit Diagnoses Not on filedocumented in this encounter Additional Health Concerns Infection Onset Date Last Indicated Resolved Time C.difficile (rule out) 03/15/2023 03/16/202303/20 9:08 PM EDT documented as of this encounter Care Teams Brazing Machine Operator Relationship Specialty Start Date End Date Maria A Soria APRN [address] [place], [place] [id number] PCP - General Family Medicine 02/15/23 documented as of this encounter
--- OUTSIDE RECORDS SUMMARY | 2024-05-30 08:32 | XMS_ITS | Encounter Summary ---
Author Organization [employer] Address [address] [place] [address] Care Team Providers Care Cereal Maker Name Role Phone Unavailable Primary Care Provider Unavailabl e Encounter Details Date Type Department Care Team (Late st Contact Info) Description 09/26/2018 Transcribed Document [facility] [place] [address] [place] [address] ProviderLaury MD [address] [place] [address] Social History Tobacco Use Types Packs/Day [...] Laury ProviderMD - 09/26/2018 10:56 PM CDT [facility] Emergency Department Depart Summary PERSON INFORMATION Name Crystal Archer Age 28 Years 1990 Sex Female Language PCP Marital Status Phone [phone] Visit Id Visit Reason Specialty Enc Type Emergency Med Service Referred by Track Group [facility] Discharge Tracking Id [id number] Checkout 09/26/2018 18:56:15 Checkin 09/26/2018 16:44:00 Acuity 3 - Urgent [facility] Dispo Type Arrival 09/26/2018 16:44:00 Reg Status LOS 000 02:12 Address: [address] [place] [address] [place] [address] POWERFORMS PHYSICIAN NOTES VITALS INFORMATION Vital Sign Triage Temp 98.7 Temp Route Oral/Mouth Pulse Rate 102 Respiratory Rate 20 Blood Pressure 140/ 72 LOCATION INFORMATION Arrival Nurse Unit Room Bed 09/26/2018 16:44:00 [facility] ED Waitroom ([facility]) 09/26/2018 16:50:17 [facility] ED 3 09/26/2018 18:56:15 [facility] ED Checkout ([facility]) MEDICAL INFORMATION Allergy Info: No Known Allergies PATIENT EDUCATION INFORMATION Instructions: Hematuria, Adult Follow up: With: Address: When: Follow up with primary care provider Within 5 to 7 days DIAGNOSIS documented in this encounter Plan of Treatment Not on file documented as of this encounter Visit Diagnoses Not on filedocumented in this encounter
--- OUTSIDE RECORDS SUMMARY | 2024-05-30 08:32 | XMS_ITS | Encounter Summary ---
Author Organization [employer] Address [address] [place] [address] Care Team Providers Care Grant Coordinator Name Role Phone Unavailable Primary Care Provider Unavailabl e Encounter Details Date Type Department Care Team (Late st Contact Info) Description 10/31/2018 Transcribed Document [facility] [place] [facility] [place] [address] ProviderLaury MD [address] [place] [id number] Social History Tobacco Use Types Packs/Day Years Used Date Smoking Tobacco: Never Assessed Comments Unknown Sex and Gender Information Value Date Recorded Sex Assigned at Female 01/12/2022 7:15 PM CDT Legal Sex Female 7:15 PM CDT Gender Identity Female 01/12/2022 7:15 PM CDT Sexual Orientation Not on file documented as of this encounter Miscellaneous Notes * Cerner Conversion Note - Laury ProviderMD - 10/31/2018 1:17 AM CDT [facility] ADDRESS [place], [place] [phone] Name:Crystal Archer Visit Date:10/30/2018 20:23:00 Emergency Department Care Providers: Physician: MEGHA MAN Physician: Our doctors and staff appreciate your choice of [facility] for your emergency medical care. Read these instructions carefully. Please call us if you have any questions about your medical problem. [facility] Emergency Department [phone] [facility] Emergency Department [phone] [facility] Emergency Department [phone] Patient Education Materials Gianni Crystal Jones has been given the following patient education materials: Dentistry Dental Extraction, Care After Refer to this sheet in the next few weeks. These instructions provide you with information about caring for yourself after your procedure. Your health care provider may also give you more specific instructions. Your treatment has been planned according to current medical practices, but problems sometimes occur. Call your health care provider if you have any problems or questions after your procedure. What can I expect after the procedure? After the procedure, it is common to have: ??? Pain and swelling for a few days. ??? Numbness for a few hours after the procedure. Follow these instructions at home: Lifestyle ??? Protect the area where your tooth was extracted, even if there is no pain. ??? Do notsmoke, do not spit, and do not drink through a straw until your health care provider says it is okay. ??? Eat soft-textured foods?as directed by your health care provider. Avoid hot drinks and spicy foods until your gum has healed. Incision care ??? Follow instructions from your health care provider about: ? Incision care. ? Gauze changes and removal. ? Incision closure removal. ??? Do notchew on the gauze. ??? If you have heavy bleeding from your gum, fold a clean piece of gauze, place it on the bleeding gum, and bite on it as directed by your health care provider. General instructions ??? Take medicines only as directed by your health care provider. ??? Do notrinse your mouth until your health care provider says it is okay. Once you are told that you can rinse your mouth, do not rinse with a lot of force (vigorously). Doing that can break up the needed clot that forms where your tooth was extracted. ? You may rinse your mouth with warm salt water after your health care provider says it is okay. You can make a salt rinse by mixing one teaspoon of salt in two cups of warm water. Do this as directed by your health care provider. ??? Do notbrush or floss near the tooth socket where your tooth was extracted until your health care provider says it is okay. You may brush your other teeth. ??? If directed, apply ice to your cheek on the affected side of your mouth: ? Put ice in a plastic bag. ? Place a towel between your skin and the bag. ? Leave the ice on for 20 minutes, 2?3 times a day. ??? Keep all follow-up visits as directed by your health care provider. This is important. Contact a health care provider if: ??? Your pain is not controlled with medicines. ??? You have a fever with nausea, vomiting, or chills. ??? You have a severe cough or shortness of breath. Get help right away if: ??? You have uncontrolled bleeding, increased swelling, or severe pain. ??? You have fluid, blood, or pus coming from the gum where your tooth was extracted. ??? You have difficulty swallowing. ??? You cannot open your mouth. This information is not intended to replace advice given to you by your health care provider. Make sure you discuss any questions you have with your health care provider. Document Released: 10/19/2011 Document Revised: 11/11/2016 Document Reviewed: 06/30/2015 [employer] Interactive Patient Education ? 2017 [employer] FOLLOW UP CARE Most conditions that [...] x-ray department to pick them up o [facility] # [phone] o [facility] # [phone] o [facility] # [phone] ?? If you had cultures done and [...] quit. o National Network of Tobacco Cessation [id number]-AMOF-NOW o [employer] o [employer] 3-303485-2188 o Sai/Manuel Mccray [phone] FINANCIAL INFORMATION ?? [facility] provides financial counseling to anyone who requests our services. ?? Emergency Physicians are independently contracted to provide your care. You will receive a bill for the care provided to you by the Physician and/or the Physician Supervisor Color Making. This will be a separate bill from [...] prescriptions and follow-up instructions: Patient Education Materials: Dentistry Dental Extraction, Care After Follow-Up Instructions: Follow Up With: Where: When: Follow up with dentist Within 1-2 days Comments: Follow Up With: Where: When: Return to Emergency Department Within As needed Comments: I, Crystal Archer, have received a copy of these discharge instructions and acknowledge understanding of these instructions. . I understand that my condition may require more care and will arrange for further treatment as recommended Patient Signature / or Patient Real Estate Branch Manager Provider Signature Date documented in this encounter Plan of Treatment Not on file documented as of this encounter Visit Diagnoses Not on filedocumented in this encounter
--- OUTSIDE RECORDS SUMMARY | 2024-05-30 08:32 | XMS_ITS | Encounter Summary ---
Author Organization [employer] Address [address] [place] [address] Care Team Providers Care Dairy Clerk Name Role Phone Unavailable Primary Care Provider Unavailabl e Encounter Details Date Type Department Care Team (Late st Contact Info) Description 10/31/2018 Transcribed Document [facility] [place] Family Medicine [address] [place] [address] ProviderLaury MD [address] [place] [address] Social History Tobacco Use Types Packs/Day [...] Laury ProviderMD - 10/31/2018 1:17 AM CDT [facility] Emergency Department Depart Summary PERSON INFORMATION Name Crystal Archer Age 28 Years 1990 Sex Female Language PCP Marital Status Phone [id number] Visit Id Visit Reason Specialty Enc Type Emergency Med Service Referred by Track Group [facility] Discharge Tracking Id [id number] Checkout 10/30/2018 21:17:02 Checkin 10/30/2018 20:23:00 Acuity 4 - Non-urgent [facility] Dispo Type Arrival 10/30/2018 20:23:00 Reg Status LOS 000 00:54 Address: [address] [place], [place] [address]T [facility] [address] [employer] PHYSICIAN NOTES VITALS INFORMATION Vital Sign Triage Temp 99 Temp Route Oral/Mouth Pulse Rate 92 Respiratory Rate 22 Blood Pressure 169/ 99 LOCATION INFORMATION Arrival Nurse Unit Room Bed 10/30/2018 20:23:00 [facility] ED Waitroom ([facility]) 10/30/2018 20:35:06 [facility] ED 9 10/30/2018 21:17:02 [facility] ED Checkout ([facility]) MEDICAL INFORMATION Allergy Info: No Known Allergies PATIENT EDUCATION INFORMATION Instructions: Dental Extraction, Care After Follow up: With: Address: When: Follow up with dentist Within 1-2 days With: Address: When: Return to Emergency Department Within As needed DIAGNOSIS Electronically signed by Zuleyka Byrd Conversion Industrial Gas Servicer Supervisor Cerner at 10/19/2022 11:23 AM CDT documented in this encounter Plan of Treatment Not on file documented as of this encounter Visit Diagnoses Not on filedocumented in this encounter
--- OUTSIDE RECORDS SUMMARY | 2024-05-30 08:32 | XMS_ITS | Encounter Summary ---
Author Organization [employer] Address [address] [place] [address] Care Team Providers Care Industrial Engineering Intern Name Role Phone Unavailable Primary Care Provider Unavailabl e Encounter Details Date Type Department Care Team (Late st Contact Info) Description 11/18/2018 Historic Encounter [address] [phone] ProviderJen Historical Social History Tobacco [...] Procedure Name Priority Date/Time Associated Diagnosis Comments URINALYSIS MICROSCOPIC Routine 11/18/2018 8:58 PM EDT RAPID STREP A SCREEN Routine 11/18/2018 8:23 PM EDT documented in this encounter Results * (ABNORMAL) Urinalysis Microscopic Only (11/18/2018 8:58 PM EDT) Mucus NONE SEEN NONE, TRACE [facility] Ketones, UA NEGATIVE NEGATIVE [facility] Urobilinogen, UA 0.2 0.2 - 1.0 [facility] SQUAMOUS EPITHELIAL 2-4(A) NONE, 0-2 [facility] Color, UA YELLOW YEL, L. YEL [facility] Amorphous Crystals TRACE NONE, TRACE [facility] Specific [place], UA 1.020 1.005 - 1.030 [facility] Nitrite, UA NEGATIVE NEGATIVE [facility] Crystals, Urine NONE SEEN NONE SEEN [facility] Clarity, UA CLEAR CLEAR, HAZY [facility] Urinalysis, Other NONE SEEN /HPF [facility] Blood, UA 2+ NEGATIVE [facility] Leukocytes, UA NEGATIVE NEGATIVE [facility] Bacteria, UA 2+(A) NONE, TRACE [facility] Glucose, UA NEGATIVE NEGATIVE [facility] pH, UA 5.5(L) 6.0 - 7.5 [facility] RBC, UA 0-2 NONE, 0-2 [facility] Urine Casts NONE SEEN NONE SEEN [facility] Bilirubin, UA NEGATIVE NEGATIVE [facility] Protein, UA 2+(A) NEGATIVE [facility] WBC, UA 0-5 NONE, 0-5 [facility] 11/18/2018 8:58 PM EDT [facility] Historical Provider URINE ORDERABLES Final Result [facility] [address] [phone] * Rapid Strep A screen (11/18/2018 8:23 PM EDT) Strep A Ag NEGATIVE NEGATIVE [facility] 11/18/2018 8:23 PM EDT Result [facility] Historical Provider MICROBIOLOGY - GENERAL ORDERABLES Final Result [facility] [address] [phone] documented in this encounter Visit Diagnoses Not on filedocumented in this encounter
--- OUTSIDE RECORDS SUMMARY | 2024-05-30 08:32 | XMS_ITS | Encounter Summary ---
Author Organization [employer] Address [address] [place] [address] Care Team Providers Care Studio Associate Name Role Phone Unavailable Primary Care Provider Unavailabl e Encounter Details Date Type Department Care Team (Late st Contact Info) Description 08/03/2018 Transcribed Document [facility] [place] Family Medicine [address] [place] [address] ProviderLaury MD [address] [place] [address] Social History Tobacco Use Types Packs/Day [...] - Laury ProviderMD - 08/03/2018 7:32 PM ODD JOBS DAY WORKER [facility] ADDRESS [place], [place] [phone] Name:Crystal Archer Visit Date:08/03/2018 13:52:00 Emergency Department Care Providers: Physician: MEGHA MAN Physician: Our doctors and staff appreciate your choice of [facility] for your emergency medical care. Read these instructions carefully. Please call us if you have any questions about your medical problem. [facility] Emergency Department [phone] [facility] Emergency Department [phone] [facility] Emergency Department [phone] Patient Education Materials Gianni Crystal Jones has [...] x-ray department to pick them up o [facility] # [phone] o [facility] # [phone] o [facility] # [phone] ?? If you had cultures done and [...] quit. o National Network of Tobacco Cessation [id number]-OEBA-NOW o [employer] o [employer] [phone] o Sai/Manuel Mahendra [phone] FINANCIAL INFORMATION ?? [facility] provides financial counseling to anyone who requests our services. ?? Emergency Physicians are independently contracted to provide your care. You will receive a bill for the care provided to you by the Physician and/or the Physician Ice Skating Coach. This will be a separate bill from [...] as recommended Patient Signature / or Patient Director Human Services Provider Signature Date documented in this encounter Plan of Treatment Not on file documented as of this encounter Visit Diagnoses Not on filedocumented in this encounter
--- OUTSIDE RECORDS SUMMARY | 2024-05-30 08:32 | XMS_ITS | Encounter Summary ---
Author Organization 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 Name Role Phone Maria A Soria APRN Primary Care Provider [phone] Reason for Referral * Consultation (Routine) - Closed Specialty Diagnoses / Procedures Referred By Contel t Referred To Contact Gynecology Diagnoses Cervical cancer screening Procedures [place] OFFICE/OUTPATIENT NEW MODERATE MDM 45-59 MINUTES Maria A Soria APRN [address] [place] [address] Phone: tel: [place]: [place] [address] [place] [address] [place] [address] Phone: tel: fax: Referral ID Status Reason Start Date Expiration Date V isits Requested Visits Authorized [id number] Closed Specialty Services Required 03/15/2023 03/14/2024 1 1 Reason for Visit * Reason Comments Annual Exam Encounter Details Date Type Department Care Team (Late st Contact Info) Description 03/15/2023 10:15 AM EDT Office Visit [facility] [address] [place] [address] [place] [address] Maria A Soria APRN [address] [place] [address] Recurrent UTI (Primary Dx); Type 1 diabetes mellitus with hyperglycemia; Mixed hyperlipidemia; History of drug abuse; History of bariatric surgery; Essential hypertension; ESRD (end stage renal disease) on dialysis; Persistent depressive disorder; Anemia due to chronic kidney disease, unspecified CKD stage; Diarrhea, unspecified type; Cervical cancer screening Social History Tobacco Use Types Packs/Day Years Used Date Smoking Tobacco: Some Days Cigarettes 0.5 10 Smokeless Tobacco: Never Tobacco Cessation:Ready to Q uit: Not Asked; Counseling Given: Not Answered Alcohol Use Standard Drinks/Week Comments No 0 [...] Sign Reading Time Taken Comments Blood Pressure 128/82 03/15/2023 9:44 AM EDT Pulse 76 03/15/2023 9:44 AM EDT Temperature 36.3 ??C (97.4 ??F) 03/15/2023 9:44 AM ED T Respiratory Rate 18 03/15/2023 9:44 AM EDT Oxygen Saturation 100% 03/15/2023 9:44 AM EDT Inhaled Oxygen Concentration - - Weight 70.9 kg (156 lb 3.2 oz) 03/15/2023 9:44 A M EDT Height 162.6 cm (5' 4 ) 03/15/2023 9:44 AM EDT Body Mass Index 26.81 03/15/2023 9:44 AM EDT documented in this encounter Progress Notes * Maria A Soria APRN - 03/15/2023 5:13 PM EDTAssociated Problem(s): Anemia Anemia of chronic disease due to end-stage renal disease. Receiving Epogen and iron as indicated per nephrology * Maria A Soria APRN - 03/15/2023 5:12 PM EDTAssociated Problem(s): Depression Patient with longstanding history of depression due to an unfortunate childhood with an alcoholic/drug addicted mother who did not care for her appropriately. She also has history of drug abuse herself. She is not under the care of any mental health providers at this time. We have discussed the benefits of regular counseling and therapy particularly with her traumatic past but she declines at this time. She denies any SI or HI. She was initiated on bupropion 150 mg once daily during her last visit, which she notes no real benefit from. She reports adverse effects from fluoxetine in the past. -Continue bupropion 150 mg once daily -Add venlafaxine 37.5 mg once daily -Evaluate for efficacy in 4 to 6 weeks * Maria A Sorai APRN - 03/15/2023 5:11 PM EDTAssociated Problem(s): Diarrhea Patient reports frequent diarrhea over the last several weeks, she reports that to be explosive andfoul-smelling. She was taken off her magnesium supplement thinking it perhaps was causing the GI issues but it has failed to resolve. Will obtain GI panel for ova parasites and C. difficile toxin. * Maria A Soria APRN - 03/15/2023 5:10 PM EDTAssociated Problem(s): ESRD (end stage renal disease) on dialysis Etiology of end-stage renal disease appears to be hypertensive nephrosclerosis as well as diabetic nephropathy. She was a noncompliant type I diabetic for many years, diagnosed at the age of 12. She is currently performing home peritoneal dialysis nocturnally 6 days/week. Working towards renal transplant with [facility]. Followed by [facility], Dr. Stevens. * Maria A Soria APRN - 03/15/2023 5:10 PM EDTAssociated Problem(s): Essential hypertension Blood pressure well controlled on current medications which include carvedilol 6.25 mg twice daily and lisinopril 10 mg once daily. Blood pressure in office today is 128/82. She notes some mornings after performing peritoneal dialysis systolic pressures in the 80s. * Maria A Soria APRN - 03/15/2023 5:09 PM EDTAssociated Problem(s): History of bariatric surgery Patient underwent sleeve gastrectomy in December 2019 with max weight of 398 pounds. She is currently 157 pounds. * Maria A Soria APRN - 03/15/2023 5:09 PM EDTAssociated Problem(s): History of drug abuse Patient with longstanding drug history, methamphetamine being a drug of choice. 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 * Maria A Soria APRN - 03/15/2023 5:08 PM EDTAssociated Problem(s): Hyperlipidemia Patient is not currently utilizing any medications to treat hyperlipidemia, however past medications include fenofibrate 145 mg daily. We are rechecking her lipid panel today * Maria A Soria APRN - 03/15/2023 10:45 AM EDTAssociated Problem(s): Type 1 diabetes mellitus with hyperglycemia Patient followed by [facility] for type 1 diabetes that was diagnosed at the age of [age] years old. History of poor compliance given development of diabetic nephropathy and retinopathy. Currentlyutilizing insulin pump. Glucose 160 this morning. Has dexcom but doesn't wear all the time. Last hemoglobin A1c 3 months ago was 5.3%. Diabetic foot exam performed today and satisfactory. Does have diabetic neuropathy, previously treated with gabapentin but induced too much drowsiness so she is no longer medicated. * Maria A Soria APRN - 03/15/2023 10:37 AM EDTAssociated Problem(s): Recurrent UTI Patient recently completed treatment for E. coli UTI through her nephrology group. She was treated with Keflex and Flagyl. Unfortunately she feels that symptoms resumed yesterday and include burning with urination and irritation. He took a Diflucan yesterday thinking perhaps it was a yeast infection. Case discussed with her dialysis nurse earlier today who reports Dr. Stevens would like referralto infectious disease if culture positive for recurrent E. coli infection. Urine culture obtained today * Bella High MA - 03/15/2023 10:15 AM EDT Venipuncture Blood Specimen Collection Venipuncture performed in right arm by Bella High MA with good hemostasis. Patient tolerated the procedure well without complications. 03/15/23 Bella High MA * Maria A Soria APRN - 03/15/2023 10:15 AM EDT Images from the original note were not included. Annual Physical Name: Crystal Archer : 1990 Chief Complaint Annual Exam Subjective History of Present Illness: Crystal Archer is a 32 y.o. female who presents today for for annual physical exam. She is followed for chronic issues including type 1 diabetes, restless leg, hyperlipidemia, hypertension, ESRD on peritoneal dialysis, depression and anemia of chronic disease. Also has history of drug abuse but has been sober since April 2022. She also has history of bariatric surgery undergoing sleeve gastrectomy in December 2019. She has recently had issues with recurrent UTI. This has has been treated with Flagyl and Keflex per nephrology. Previous cultures have grown E. coli. Patient's dialysis nurse contacted our office today with advice from nephrology, Dr. Stevens, if patient repeat cultures growing E. coli he would like referral to infectious disease for further evaluation and treatment. Patient complains of burning with urination, she states she is unsure if this is recurrence of UTI or possibly yeast infection. Patient has also been having excessive diarrhea for the last several weeks. She is not up-to-date on cervical cancer screening, requesting NREMT referral to establish care. She is up-to-date on diabetic eye exam, diabetic foot exam completed and satisfactory in office today. She is followed by [facility] for type 1 diabetes, patient has compliance issues with wearing of Dexcom as well as regular glucose checks. In regards to mood patient was initiated on Wellbutrin 150 mg once daily during last visit which she states today has provided no benefit. She has several different stressors including a troubled marriage and a drug addicted mother. Still has concerns with her son's development. She has no further complaints or concerns today The patient is being seen for a health maintenance evaluation. Social History Tobacco Use: High Risk Smoking Tobacco Use: Some Days Smokeless Tobacco Use: Never Passive Exposure: Not on file Social History Socioeconomic History Marital status: Tobacco Use Smoking status: Some Days Packs/day: 0.50 Years: 10.00 Pack years: 5.00 Types: Cigarettes Smokeless tobacco: Never Substance and Sexual Activity Alcohol use: No Drug use: No Sexual activity: Yes control/protection: Pill, None, Surgical General History Crystal does not have regular dental visits. She does not complain of vision problems. Last eye exam was six months ago. + for retinopathy. Immunizations are not up to date. The patient needs the following immunizations: COVID booster Lifestyle Crystal consumes in general, an unhealthy diet. She exercises never. Reproductive Health Crystal is premenopausal. She reports periods are regular every 28-30 days. She is sexually active. Her contraceptive plan is bilateral tubal ligation. Screening Last pap was 2019 Last Completed Pap Smear This patient has no relevant Health Maintenance data. . History of abnormal pap smear or family history of millinery department manager cancer: unknown Last mammogram was Last Completed Mammogram This patient has no relevant Health Maintenance data. . Personal or family history of abnormal mammograms or breast cancer: paternal aunt Last colonoscopy was Last Completed Colonoscopy This patient has no relevant Health Maintenance data. . Family history of colon cancer: unknwon Health Maintenance Summary Ordered - URINE MICROALBUMIN (Yearly) Ordered on 02/15/2023 07/23/2016 Protein, Urine, 24 Hour 06/17/2016 Protein, Urine, 24 Hour Ordered - LIPID PANEL (Yearly) Ordered on 03/15/2023 01/03/2019 Lipid Panel Postponed - COVID-19 Vaccine (1) Postponed until 03/17/2023 03/15/2023 Postponed until 03/17/2023 by Betsey Roach MA (Patient Refused) 02/15/2023 Postponed until 02/17/2023 by Betsey Roach MA (Patient Refused) Postponed - PAP SMEAR (Every 3 Years) Postponed until 04/09/2023 02/15/2023 Postponed until 04/09/2023 by Betsey Roach MA (Pending event) Postponed - Hepatitis B (1 of 3 - 3-dose series) Postponed until 02/16/2024 02/15/2023 Postponed until 02/16/2024 by Betsey Roach MA (Patient Refused) Postponed - Pneumococcal Vaccine 0-64 (2 - PCV) Postponed until 02/16/2024 02/15/2023 Postponed until 02/16/2024 by Betsey Roach MA (Patient Refused) 12/21/2018 Imm Admin: Pneumococcal Polysaccharide (PPSV23) INFLUENZA VACCINE (Yearly - April to September) Next due on 04/17/2023 04/07/2021 Imm Admin: FluLaval/Fluzone >6mos 04/22/2020 Imm Admin: FluLaval/Fluzone >6mos 05/06/2017 Imm Admin: FluLaval/Fluzone >6mos 04/05/2012 Imm Admin: Fluzone Quad >6mos (Multi-dose) Ordered - HEMOGLOBIN A1C (Every 6 Months) Ordered on 03/15/2023 12/16/2022 Hemoglobin A1C component of POCT GLYCOSYLATED HEMOGLOBIN (HGB A1C) 09/13/2022 Hemoglobin A1C component of POCT GLYCOSYLATED HEMOGLOBIN (HGB A1C) 05/13/2022 Hemoglobin A1C component of POCT GLYCOSYLATED HEMOGLOBIN (HGB A1C) 12/21/2021 Hemoglobin A1C component of POCT GLYCOSYLATED HEMOGLOBIN (HGB A1C) 07/21/2018 Hemoglobin A1C component of Hemoglobin A1c Only the first 5 history entries have been loaded, but more history exists. DIABETIC EYE EXAM (Yearly) Next due on 12/31/2023 12/30/2022 Done BMI FOLLOWUP (Yearly) Next due on 02/16/2024 02/15/2023 Registry Metric: Date of last BMI follow-up ANNUAL PHYSICAL (Yearly) Next due on 03/15/2024 03/15/2023 Done DIABETIC FOOT EXAM (Yearly) Next due on 03/15/2024 03/15/2023 Done TDAP/TD VACCINES (2 - Tdap) Next due on 02/16/2028 02/15/2018 Imm Admin: TD Preservative Free (Tenivac) HEPATITIS C SCREENING Completed 07/23/2019 Hepatitis C Antibody 04/06/2018 Hep C Virus Ab component of Hepatitis Panel, Acute Immunization History Administered Date(s) Administered 31-influenza Vac Quardvalent Preservativ 04/06/2018, 05/17/2019 Fluzone >6mos 05/06/2017, 04/22/2020, 04/07/2021 Fluzone Quad >6mos (Multi-dose) 04/05/2012 Hepatitis A 07/27/2018, 01/29/2019 Influenza Seasonal Injectable 04/05/2012 Pneumococcal Polysaccharide (PPSV23) 12/21/2018 TD Preservative Free (Tenivac) 02/15/2018 Review of Systems Constitutional: Negative for activity change, appetite change and fatigue. HENT: Negative for dental problem, sore throat and trouble swallowing. Eyes: Negative for visual disturbance. Respiratory: Negative for cough, chest tightness, shortness of breath and wheezing. Cardiovascular: Negative for chest pain, palpitations and leg swelling. Gastrointestinal: Positive for diarrhea. Negative for abdominal pain, constipation, nausea and vomiting. Endocrine: Negative for polydipsia and polyuria. Genitourinary: Negative for decreased urine volume, difficulty urinating, flank pain, frequency, pelvic pain, vaginal discharge and vaginal pain. Pyuria Musculoskeletal: Negative for arthralgias and myalgias. Skin: Negative for rash and wound. Neurological: Negative for dizziness, weakness, light-headedness, numbness and headaches. Psychiatric/Behavioral: Positive for agitation. Negative for self-injury and suicidal ideas. Depressed Objective Vital Signs BP 128/82 (BP Location: Left arm, Patient Position: Sitting, Cuff Size: Adult) Pulse 76 Temp 97.4 ??F (36.3 ??C) (Temporal) Resp 18 Ht 162.6 cm (64 ) Wt 70.9 kg (156 lb 3.2 oz) SpO2 100% BMI 26.81 kg/m?? Estimated body mass index is 26.81 kg/m?? as calculated from the following: Height as of this encounter: 162.6 cm (64 ). Weight as of this encounter: 70.9 kg (156 lb 3.2 oz). Physical Exam Vitals reviewed. Constitutional: Appearance: Normal appearance. HENT: Head: Normocephalic and atraumatic. Right Ear: Tympanic membrane, ear canal and external ear normal. Left Ear: Tympanic membrane, ear canal and external ear normal. Nose: Nose normal. Mouth/Throat: Mouth: Mucous membranes are moist. Pharynx: Oropharynx is clear. Eyes: Conjunctiva/sclera: Conjunctivae normal. Pupils: Pupils are equal, round, and reactive to light. Cardiovascular: Rate and Rhythm: Normal rate and regular rhythm. Pulmonary: Effort: Pulmonary effort is normal. Breath sounds: Normal breath sounds. Abdominal: General: Bowel sounds are normal. Palpations: Abdomen is soft. Genitourinary: General: Normal vulva. Pubic Area: No rash. Labia: Right: No rash or lesion. Left: No rash or lesion. Vagina: No vaginal discharge. Musculoskeletal: General: Normal range of motion. Cervical back: Neck supple. Skin: General: Skin is warm and dry. Neurological: Mental Status: She is alert and oriented to person, place, and time. Psychiatric: Mood and Affect: Mood normal. Behavior: Behavior normal. Thought Content: Thought content normal. Judgment: Judgment normal. Diabetic Foot Exam Performed and Monofilament Test Performed Assessment and Plan Diagnoses and all orders for this visit: 1. Recurrent UTI (Primary) Assessment & Plan: Patient recently completed treatment for E. coli UTI through her nephrology group. She was treated with Keflex and Flagyl. Unfortunately she feels that symptoms resumed yesterday and include burning with urination and irritation. He took a Diflucan yesterday thinking perhaps it was a yeast infection. Case discussed with her dialysis nurse earlier today who reports Dr. Stevens would like referralto infectious disease if culture positive for recurrent E. coli infection. Urine culture obtained today Orders: - Cancel: Urine Culture - Urine, Urine, Clean Catch - Urine Culture - Urine, Urine, Clean Catch; Future - Urine Culture - Urine, Urine, Clean Catch 2. Type 1 diabetes mellitus with hyperglycemia Assessment & Plan: Patient followed by endocrinology for type 1 diabetes that was diagnosed at the age of [age] years old. History of poor compliance given development of diabetic nephropathy and retinopathy. Currentlyutilizing insulin pump. Glucose 160 this morning. Has dexcom but doesn't wear all the time. Last hemoglobin A1c 3 months ago was 5.3%. Diabetic foot exam performed today and satisfactory. Does have diabetic neuropathy, previously treated with gabapentin but induced too much drowsiness so she is no longer medicated. Orders: - Comprehensive Metabolic Panel - Hemoglobin A1c 3. Mixed hyperlipidemia Assessment & Plan: Patient is not currently utilizing any medications to treat hyperlipidemia, however past medications include fenofibrate 145 mg daily. We are rechecking her lipid panel today 4. History of drug abuse Assessment & Plan: Patient with longstanding drug history, methamphetamine being a drug of choice. 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 5. History of bariatric surgery Assessment & Plan: Patient underwent sleeve gastrectomy in December 2019 with max weight of 398 pounds. She is currently 157 pounds. 6. Essential hypertension Assessment & Plan: Blood pressure well controlled on current medications which include carvedilol 6.25 mg twice daily and lisinopril 10 mg once daily. Blood pressure in office today is 128/82. She notes some mornings after performing peritoneal dialysis systolic pressures in the 80s. Orders: - TSH Rfx On Abnormal To Free T4 - Lipid Panel 7. ESRD (end stage renal disease) on dialysis Assessment & Plan: Etiology of end-stage renal disease appears to be hypertensive nephrosclerosis as well as diabetic nephropathy. She was a noncompliant type I diabetic for many years, diagnosed at the age of 12. She is currently performing home peritoneal dialysis nocturnally 6 days/week. Working towards renal transplant with [facility]. Followed by [facility], Dr. Stevens. Orders: - CBC & Differential 8. Persistent depressive disorder Assessment & Plan: Patient with longstanding history of depression due to an unfortunate childhood with an alcoholic/drug addicted mother who did not care for her appropriately. She also has history of drug abuse herself. She is not under the care of any mental health providers at this time. We have discussed the benefits of regular counseling and therapy particularly with her traumatic past but she declines at this time. She denies any SI or HI. She was initiated on bupropion 150 mg once daily during her last visit, which she notes no real benefit from. She reports adverse effects from fluoxetine in the past. -Continue bupropion 150 mg once daily -Add venlafaxine 37.5 mg once daily -Evaluate for efficacy in 4 to 6 weeks Orders: - venlafaxine XR (Effexor XR) 37.5 MG 24 hr capsule; Take 1 capsule by mouth Daily. Dispense: 30 capsule; Refill: 2 9. Anemia due to chronic kidney disease, unspecified CKD stage Assessment & Plan: Anemia of chronic disease due to end-stage renal disease. Receiving Epogen and iron as indicated per nephrology 10. Diarrhea, unspecified type Assessment & Plan: Patient reports frequent diarrhea over the last several weeks, she reports that to be explosive andfoul-smelling. She was taken off her magnesium supplement thinking it perhaps was causing the GI issues but it has failed to resolve. Will obtain GI panel for ova parasites and C. difficile toxin. Orders: - Clostridioides difficile Toxin - Stool, Per Rectum; Future 11. Cervical cancer screening - Ambulatory Referral to Gynecology Follow Up Return in about 6 weeks (around 04/26/2023). Maria A Soria APRN documented in this encounter Plan of Treatment Scheduled Orders Name Type Priority Associated Diagnoses Orde r Schedule Clostridioides difficile Toxin - Stool, Per Rectum Microbiology Routine Diarrhea, unspecified type Expected: 03/15/2023 (Approximate), Expires: 03/15/2024 Urine Culture - Urine, Urine, Clean Catch Microbiology Routine Recurrent UTI Expected: 03/15/2023 (Approximate), Expires: 03/15/2024 documented as of this encounter Procedures Procedure Name Priority Date/Time Associated Diagnosis Comments TSH RFX ON ABNORMAL TO FREE T4 Routine 03/15/2023 10:03 AM EDT Essential hypertension CBC AND DIFFERENTIAL Routine 03/15/2023 10:03 AM EDT ESRD (end stage renal disease) on dialysis HEMOGLOBIN A1C Routine 03/15/2023 10:03 AM EDT Type 1 diabetes mellitus with hyperglycemia LIPID PANEL Routine 03/15/2023 10:03 AM EDT Essential hypertension COMPREHENSIVE METABOLIC PANEL Routine 03/15/2023 10:03 AM EDT Type 1 diabetes mellitus with hyperglycemia URINE CULTURE Routine 03/15/2023 12:00 AM EDT documented in this encounter Results * (ABNORMAL) Hemoglobin A1c (03/15/2023 10:03 AM EDT) Hemoglobin A1C 5.9(H) 4.8 - 5.6 % [facility] Comment: ? Prediabetes: 5.7 - 6.4 ? Diabetes: >6.4 ? Glycemic control for adults with diabetes: <7.0 Blood Structure of right upper limb / Unknown 03/15/2023 10:03 AM EDT 03/16/2023 Comment:Blood Release to bhavin Alberts [facility] ([facility]) - 03/16/2023 9:07 AM EDT Performed at: ??01 - [facility] [address] [place], [place] ??[id number] Bail Agent: Jacob Whaley PhD, Phone: ??[phone] Maria A Soria APRN LAB BLOOD ORDERABLES Final Result Performing Organization Address [facility]/ZIP Co de Phone Number [facility] [address] [place] [address], [place] [phone] [facility] [address] [place] [address], * (ABNORMAL) Lipid Panel (03/15/2023 10:03 AM EDT) Total Cholesterol 134 100 - 199 mg/dL [facility] Triglycerides 116 0 - 149 mg/dL [facility] HDL Cholesterol 39(L) >39 mg/dL [facility] VLDL Cholesterol Christian 21 5 - 40 mg/dL [facility] LDL Chol Calc (NIH) 74 0 - 99 mg/dL [facility] Blood Structure of right upper limb / Unknown 03/15/2023 10:03 AM EDT 03/16/2023 Comment:Blood Release to [facility] michell Alberts [facility] (AMB[facility]) - 03/16/2023 9:07 AM EDT Performed at: ??01 - [facility] [address] ??[id number] Bail Agent: Jacob Whaley PhD, Phone: ??[phone] Maria A Soria APRN LAB BLOOD ORDERABLES Final Result Performing Organization Address [facility]/ZIP Co de Phone Number [facility] [address] [place] [address], [place] [phone] [facility] [address] [place] [address], * (ABNORMAL) CBC & Differential (03/15/2023 10:03 AM EDT) WBC 4.7 3.4 - 10.8 x10E3/uL [facility] RBC 3.47(L) 3.77 - 5.28 x10E6/uL [facility] Hemoglobin 10.8(L) 11.1 - 15.9 g/dL [facility] Hematocrit 32.7(L) 34.0 - 46.6 % [facility] MCV 94 79 - 97 fL [facility] MCH 31.1 26.6 - 33.0 pg [facility] MCHC 33.0 31.5 - 35.7 g/dL [facility] RDW 12.6 11.7 - 15.4 % [facility] Platelets 137(L) 150 - 450 x10E3/uL [facility] Neutrophil Rel % 60 Not Estab. % [facility] Lymphocyte Rel % 30 Not Estab. % [facility] Monocyte Rel % 8 Not Estab. % [facility] Eosinophil Rel % 2 Not Estab. % [facility] Basophil Rel % 0 Not Estab. % [facility] Neutrophils Absolute 2.8 1.4 - 7.0 x10E3/uL [facility] Lymphocytes Absolute 1.4 0.7 - 3.1 x10E3/uL [facility] Monocytes Absolute 0.4 0.1 - 0.9 x10E3/uL [facility] Eosinophils Absolute 0.1 0.0 - 0.4 x10E3/uL [facility] Basophils Absolute 0.0 0.0 - 0.2 x10E3/uL [facility] Immature Granulocyte Rel % 0 Not Estab. % [facility] Immature Grans Absolute 0.0 0.0 - 0.1 x10E3/uL [facility] Blood Structure of right upper limb / Unknown 03/15/2023 10:03 AM EDT 03/16/2023 Comment:Blood Release to pat i Narrative [facility] ([facility]) - 03/16/2023 9:07 AM EDT Performed at: ??01 - [facility] [address] [place] [address], [place], [place] ??[id number] Bail Agent: Jacob Whaley PhD, Phone: ??[phone] us Maria A Soria APRN LAB BLOOD ORDERABLES Final Result [facility] ([facility]) [address] [place] [id number], [facility] [address] [place] [address], * (ABNORMAL) Comprehensive Metabolic Panel (03/15/2023 10:03 AM EDT) Glucose 84 70 - 99 mg/dL [facility] BUN 55(H) 6 - 20 mg/dL [facility] Creatinine 6.94(H) 0.57 - 1.00 mg/dL [facility] EGFR Result 7(L) >59 mL/min/1.7 3 [facility] BUN/Creatinine Ratio 8(L) 9 - 23 [facility] Sodium 141 134 - 144 mmol/L [facility] Potassium 5.7(H) 3.5 - 5.2 mmol/L [facility] Chloride 108(H) 96 - 106 mmol/L [facility] Total CO2 18(L) 20 - 29 mmol/L [facility] Calcium 8.2(L) 8.7 - 10.2 mg/dL [facility] Total Protein 5.8(L) 6.0 - 8.5 g/dL [facility] Albumin 3.9 3.9 - 4.9 g/dL [facility] Globulin 1.9 1.5 - 4.5 g/dL [facility] A/G Ratio 2.1 1.2 - 2.2 [facility] Total Bilirubin <0.2 0.0 - 1.2 mg/dL [facility] Alkaline Phosphatase 74 44 - 121 IU/L [facility] AST (SGOT) 9 0 - 40 IU/L [facility] ALT (SGPT) 9 0 - 32 IU/L [facility] Blood Structure of right upper limb / Unknown 03/15/2023 10:03 AM EDT 03/16/2023 Comment:Blood Release to bhavin Alberts [facility] (AMB[facility]ATORY) - 03/16/2023 9:07 AM EDT Performed at: ??01 - [facility] [address] [facility], [place], [place] ??[id number] Bail Agent: Jacob Whaley PhD, Phone: ??[phone] Maria A Doyle Yang SHAMPOO TECHNICIAN LAB BLOOD ORDERABLES Final Result Performing Organization Address City/[facility]/ZIP Co de Phone Number [facility] [address] [place] [address], [place] [phone] [facility] [address] [place] [address], [place] [phone] * TSH Rfx On Abnormal To Free T4 (03/15/2023 10:03 AM EDT) TSH 2.880 0.450 - 4.500 uIU/mL [facility] Blood Structure of right upper limb / Unknown 03/15/2023 10:03 AM EDT 03/16/2023 Comment:Blood Release to bhavin Alberts [facility] (AMBULATORY) - 03/16/2023 9:07 AM EDT Performed at: ??01 - [address] ??[id number] Bail Agent: Jacob Whaley PhD, Phone: ??[phone] Maria A N Yang SHAMPOO TECHNICIAN LAB BLOOD ORDERABLES Final Result Performing Organization Address City/[facility] Co de Phone Number [facility] (AMBULATORY) [address] [place] [address], [place] [phone] [facility] [address] [place] [address], [place] [phone] * (ABNORMAL) Urine Culture - , (03/15/2023 12:00 AM EDT) Urine Culture Final report(A) [facility] Result 1 Comment(A ) [facility] Comment: Beta hemolytic Streptococcus, group B Greater than 100,000 colony forming units per mL Penicillin and ampicillin are drugs of choice for treatment of beta-hemolytic streptococcal infections. Susceptibility testing of penicillins and other beta-lactam agents approved by the FDA for treatment of beta-hemolytic streptococcal infections need not be performed routinely because nonsusceptible isolates are extremely rare in any beta-hemolytic streptococcus and have not been reported for Streptococcus pyogenes (group A). (CLSI) 03/15/2023 03/16/2023 Comment:Urine Release to pat i Narrative [facility] ([facility]) - 03/17/2023 5:06 PM EDT Performed at: ??01 - [facility] [address] [facility], [place], [place] ??[id number] Bail Agent: Jacob Whaley PhD, Phone: ??[phone] Maria A Soria APRN MICROBIOLOGY - GENERAL ORDE TORITO Final Result [facility] (AMBULATORY) [address] [place] [address], [facility] [address] [place] [address], documented in this encounter Visit Diagnoses Diagnosis Recurrent UTI- Primary Urinary tract infection, site not specified Type 1 diabetes mellitus with hyperglycemia Mixed hyperlipidemia History of drug abuse Other, mixed, or unspecified nondependent drug abuse, in remission History of bariatric surgery Bariatric surgery status Essential hypertension Unspecified essential hypertension ESRD (end stage renal disease) on dialysis End stage renal disease Persistent depressive disorder Anemia due to chronic kidney disease, unspecified CKD stage Diarrhea, unspecified type Cervical cancer screening Screening for malignant neoplasm of the cervix documented in this encounter Additional Health Concerns Infection Onset Date Last Indicated Resolved Time C.difficile (rule out) 03/15/2023 03/16/202303/20 9:08 PM EDT documented as of this encounter Care Teams Fur Machine Operator Relationship Specialty Start Date End Date Maria A Soria APRN [address] [place], [place] [id number] PCP - General Family Medicine 02/15/23 documented as of this encounter
--- OUTSIDE RECORDS SUMMARY | 2024-05-30 08:32 | XMS_ITS | Encounter Summary ---
Author Organization [employer] Address [address] [place] [address] Care Team Providers Care Mirror Painter Name Role Phone Unavailable Primary Care Provider Unavailabl e Encounter Details Date Type Department Care Team (Late st Contact Info) Description 09/07/2018 Transcribed Document [facility] Family Medicine [address] [place] [address] ProviderLaury MD [address] [place] [address] Social History Tobacco Use Types Packs/Day [...] Cerner Conversion Note - Laury ProviderMD - 09/07/2018 9:31 PM MANAGER HOUSE [facility] Emergency Department Depart Summary PERSON INFORMATION Name Crystal Archer Age 28 Years 1990 Sex Female Language PCP Marital Status Phone [phone] Visit Id Visit Reason Specialty Enc Type Emergency Med Service Referred by Track Group [facility] Discharge Tracking Id [id number] Checkout 09/07/2018 16:31:16 Checkin 09/07/2018 15:20:00 Acuity 4 - Non-urgent [facility] Dispo Type Arrival 09/07/2018 15:20:00 Reg Status LOS 000 01:11 Address: [address] [place], [place] [address]T [facility] [place] [address] POWERFORMS PHYSICIAN NOTES VITALS INFORMATION Vital Sign Triage Temp 99.1 Temp Route Oral/Mouth Pulse Rate 61 Respiratory Rate 20 Blood Pressure 145/ 91 LOCATION INFORMATION Arrival Nurse Unit Room Bed 09/07/2018 15:20:00 [facility] ED Waitroom ([facility]) 09/07/2018 15:34:51 [facility] ED 9 09/07/2018 16:31:16 [facility] ED Checkout ([facility]) MEDICAL INFORMATION Allergy Info: No Known Allergies PATIENT EDUCATION INFORMATION Instructions: Ulnar Fracture Follow up: With: Address: When: Follow up with specialist Within 1-2 days Comments: call for follow up appointment with orthopedist to replace cast. With: Address: When: Return to Emergency Department Within As needed DIAGNOSIS documented in this encounter Plan of Treatment Not on file documented as of this encounter Visit Diagnoses Not on filedocumented in this encounter
--- OUTSIDE RECORDS SUMMARY | 2024-05-30 08:32 | XMS_ITS | Encounter Summary ---
Author Organization [facility] Address [address] [id number] Care Team Providers Care Optimization Engineer Name Role Phone Maria A Soria Vivek RENE Primary Care Provider [phone] Encounter Details Date Type Department Care Team (Late st Contact Info) Description 02/16/2023 Patient rounding ([facility] only) [facility] [address] [place] [address] [place] [address] Chey Coello Social History Tobacco Use Types Packs/Day Years [...] as of this encounter Progress Notes * Chey Coello - 02/16/2023 2:20 PM EDTSummary: Rounding ..A [employer] message has been sent to the patient for patient rounding with [facility]. documented in this encounter Plan of Treatment Not on file documented as of this encounter Visit Diagnoses Not on filedocumented in this encounter Care Teams Optimization Engineer Relationship Specialty Start Date End Date Maria A Soria APRN [address] [place] [address] PCP - General Family Medicine 02/15/23 documented as of this encounter
--- OUTSIDE RECORDS SUMMARY | 2024-05-30 08:32 | XMS_ITS | Encounter Summary ---
Author Organization [employer] Address [address] [place] [address] Care Team Providers Care Unit Assembler Name Role Phone Unavailable Primary Care Provider Unavailabl e Encounter Details Date Type Department Care Team (Late st Contact Info) Description 01/07/2019 Transcribed Document [facility] Family Medicine [address] [place] [address] ProviderLaury MD [address] [place] [address] Social History Tobacco Use Types Packs/Day [...] Cerner Conversion Note - Laury ProviderMD - 01/07/2019 11:08 PM CDT [facility] Triage ED Entered On: 01/07/2019 19:14 EDT Performed On: 01/07/2019 19:08 EDT by Pearl Waller Triage Assessment Triage Date/Time : 01/07/2019 19:08 EDT Pearl Waller - 01/07/2019 19:08 EDT DCP GENERIC CODE Tracking Acuity : 3 - Urgent BBK Tracking Group : [facility]K Pearl Fernandes - 01/07/2019 19:08 EDT ED Visit Reason : Hyperglycemia Primary Care Provider : GILBERT RIOS Accompanied By : Family/Spouse/SO Arrival Mode : Ambulatory Chief Complaint : PT REPORTS RASH ON LEGS HAS BEEN THERE FOR SEVERAL HAS SEEN US AND DERM DERM GAVE HER A CREAM THAT HER MEDICAL WONT PAY FOR. ALSO REPORTS HER SUGARS HAVE BEEN RUNNING HIGH SINCE THE . BS IN ER 473. PT ALSO STATES SHE THINKS SHE HAS WORMS IN HER STOOL. BARONE SINCE THE . Health History Reviewed : Yes Pearl Waller - 01/07/2019 19:08 EDT Health History ED Grid Alcohol Use : No Caffeine Use : Yes Substance Abuse : No Tobacco Use : Yes, 1ppd Asthma/COPD : No Cancer : No CVA/TIA : No Mental Illness : No Dementia : No Diabetes : Yes, insulin pump 2014 General Cardiac : No GI 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 : No Property Caretaker Hx : No Heart Attack : No Heart Failure : No High Blood Pressure : Yes High Cholesterol : Yes Liver Disease : No Renal : Yes, stage IV Seizure : No Surgical History : Yes, 2 , insuin pump, kidney bx Thyroid Disease : No AIDS/HIV : No MRSA : No Tuberculosis : No VRE : No Other 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 : Yes, hyperkalemia Pathway Planning : No, Patient seeind cancer doc on 12/12/17 Pearl Waller - 01/07/2019 19:08 EDT Temp : 99.4 Deg F(Converted to: 37.4 Deg C) (HI) Systolic Blood Pressure : 137 mmHg Diastolic Blood Pressure : 85 mmHg Pulse Rate : 96 bpm Respiratory Rate : 16 Breaths/Min Oxygen Saturation : 97 % Pain Symptoms : Yes LMP date : 12/11/2018 EDT Medication Profile, Med Rec : Open Allergy Profile, Med Rec : Open Pearl Waller - 01/07/2019 19:08 EDT Medication List ED Medications Reviewed : Yes Source of Information : Patient Pearl Waller - 01/07/2019 19:08 EDT Medication List (As Of: 01/07/2019 19:14:37 EDT) Home Meds calcium acetate : calcium acetate ; Status: Documented ; Ordered As Mnemonic: calcium acetate ; Simple Display Line: 0 Refill(s) ; Catalog Code: calcium acetate ; Order Dt/Tm: 09/07/2018 15:29:19 atorvastatin : atorvastatin ; Status: Documented ; Ordered As Mnemonic: atorvastatin ; Simple Display Line: 0 Refill(s) ; Catalog Code: atorvastatin ; Order Dt/Tm: 09/07/2018 15:28:07 sodium bicarbonate : sodium bicarbonate ; Status: Documented ; Ordered As Mnemonic: sodium bicarbonate ; Simple Display Line: 0 Refill(s) ; Catalog Code: sodium bicarbonate ; Order Dt/Tm: 08/03/2018 14:16:25 furosemide : furosemide ; Status: Documented ; Ordered As Mnemonic: Lasix 40 mg oral tablet ; Simple Display Line: 0 Refill(s) ; Catalog Code: furosemide ; Order Dt/Tm: 08/03/2018 14:13:11 carvedilol : carvedilol ; Status: Documented ; Ordered As Mnemonic: carvedilol 3.125 mg oral tablet ; Simple Display Line: 0 Refill(s) ; Catalog Code: carvedilol ; Order Dt/Tm: 08/03/2018 14:12:57 insulin lispro : insulin lispro ; Status: Documented ; Ordered As Mnemonic: Admelog 100 units/mL injectable solution ; Simple Display Line: 0 Refill(s) ; Catalog Code: insulin lispro ; Order Dt/Tm: 08/03/2018 14:12:16 gabapentin : gabapentin ; Status: Documented ; Ordered As Mnemonic: gabapentin 300 mg oral capsule ; Simple Display Line: 0 Refill(s) ; Catalog Code: gabapentin ; Order Dt/Tm: 08/03/2018 14:11:48 aspirin : aspirin ; Status: Documented ; Ordered As Mnemonic: aspirin 81 mg oral tablet ; Simple Display Line: 0 Refill(s) ; Catalog Code: aspirin ; Order Dt/Tm: 08/03/2018 14:11:26 loratadine : loratadine ; Status: Documented ; Ordered As Mnemonic: loratadine 10 mg oral capsule ; Simple Display Line: 0 Refill(s) ; Catalog Code: loratadine ; Order Dt/Tm: 08/03/2018 14:10:52 fenofibrate : fenofibrate ; Status: Documented ; Ordered As Mnemonic: fenofibrate ; Simple Display Line: 160 mg, Oral, Daily, 0 Refill(s) ; Catalog Code: fenofibrate ; Order Dt/Tm: 08/03/2018 14:11:10 amLODIPine : amLODIPine ; Status: Documented ; Ordered As Mnemonic: amLODIPine 2.5 mg oral tablet ; Simple Display Line: 2.5 mg, 1 Tab, Oral, Daily, 30 Tab, 0 Refill(s) ; Catalog Code: amLODIPine ; Order Dt/Tm: 09/26/2018 16:55:11 Allergy Profile (As Of: 01/07/2019 19:14:37 EDT) Allergies (Active) NSAIDs Estimated Onset Date: Unspecified ; Created By: Pearl Waller; Reaction Status: Active ; Category: Drug ; Substance: NSAIDs ; Type: Allergy ; Updated By: Pearl Waller; Reviewed Date: 01/07/2019 19:14 EDT Pain Pain Assessment Grid Acceptable Intensity : 4 Pearl Waller - 01/07/2019 19:08 EDT documented in this encounter Plan of Treatment Not on file documented as of this encounter Visit Diagnoses Not on filedocumented in this encounter
--- OUTSIDE RECORDS SUMMARY | 2024-05-30 08:32 | XMS_ITS | Encounter Summary ---
Author Organization [employer] Address [address] [place] [address] Care Team Providers Care Licensed Sales Assistant Name Role Phone Unavailable Primary Care Provider Unavailabl e Encounter Details Date Type Department Care Team (Late st Contact Info) Description 08/03/2018 Transcribed Document [facility] Family Medicine [address] [place] [address] ProviderLaury MD [address] [place] [address] Social History Tobacco Use Types Packs/Day [...] - Laury ProviderMD - 08/03/2018 7:32 PM SALES DEVELOPMENT DIRECTOR [facility] [place], [place] [phone] Name:Crystal Archer Visit Date:08/03/2018 13:52:00 Emergency Department Care Providers: Physician: MEGHA MAN Physician: Our doctors and staff appreciate your choice of [facility] for your emergency medical care. Read these instructions carefully. Please call us if you have any questions about your medical problem. [facility] Emergency Department [phone] [facility] Emergency Department [phone] [facility] Emergency Department [phone] Patient Education Materials Gianni Crystal Jones has [...] x-ray department to pick them up o [facility] # [phone] o [facility] # [phone] o [facility] # [phone] ?? If you had cultures done and [...] quit. o National Network of Tobacco Cessation FDmzbbnrv5-021-KEVE-NOW o [employer] o [employer] 8-089745-3769 o Sai/Manuel Mahendra [phone] FINANCIAL INFORMATION ?? [facility] provides financial counseling to anyone who requests our services. ?? Emergency Physicians are independently contracted to provide your care. You will receive a bill for the care provided to you by the Physician and/or the Physician Heat Treat Supervisor. This will be a separate bill from [...] No follow up information was provided. I, Valentín Archerabi Liangsil, have received a copy of these discharge instructions and acknowledge understanding of these instructions. . I understand that my condition may require more care and will arrange for further treatment as recommended Patient Signature / or Patient Gasser Machine Operator Provider Signature Date Date/Time 08/03/2018 14:32 [facility] Home Medications Name Crystal Archer Allergy Info: No Known Allergies Allergy Comment: HOME MEDICATIONS Medication Dose Route Frequency Reason For Taking Next Dose Admelog 100 units/mL injectable solution amLODIPine 2.5 mg oral tablet amLODIPine-atorvastatin aspirin 81 mg oral tablet carvedilol 3.125 mg oral tablet fenofibrate gabapentin [...]
--- OUTSIDE RECORDS SUMMARY | 2024-05-30 08:32 | XMS_ITS | Encounter Summary ---
Author Organization [employer] [facility] [employer] Address [address] [place] [address] Care Team Providers Care Ceramic Chemist Name Role Phone Unavailable Primary Care Provider Unavailabl e Encounter Details Date Type Department Care Team (Late st Contact Info) Description 09/07/2018 Transcribed Document [facility] [place] Family Medicine [address] [place] [address] ProviderLaury MD [address] [place] [address] Social History Tobacco Use Types Packs/Day [...] - Laury ProviderMD - 09/07/2018 9:31 PM ASSEMBLER [employer] [facility] ADDRESS [place], [place] [phone] Name:Crystal Archer Visit Date:09/07/2018 15:20:00 Emergency Department Care Providers: Physician: MEGHA MAN Physician: Our doctors and staff appreciate your choice of [facility] for your emergency medical care. Read these instructions carefully. Please call us if you have any questions about your medical problem. [facility] Emergency Department [phone] [facility] Emergency Department [phone] [facility] Emergency Department [phone] Patient Education Materials Gianni Crystal Jones has been given the following patient education materials: Orthopedics Ulnar Fracture An ulnar fracture is a break in the ulna bone, which is the forearm bone that is located on the same side as your little finger. Your forearm is the part of your arm that is between your elbow and your wrist. It is made up of two bones: the radius and ulna. The ulna forms the point of your elbow at its upper end. The lower end can be felt on the outside of your wrist. An ulnar fracture can happen near the wrist or elbow or in the middle of your forearm. Middle forearm fractures usually break both the radius and the ulna. What are the causes? A heavy, direct blow to the forearm is the most common cause of an ulnar fracture. It takes a lot of force to break a bone in your forearm. This type of injury may be caused by: ??? An accident, such as a car or bike accident. ??? Falling with your arm outstretched. What increases the risk? You may be at greater risk for an ulnar fracture if you: ??? Play contact sports. ??? Have a condition that causes your bones to be weak or thin (osteoporosis). What are the signs or symptoms? An ulnar fracture causes pain immediately after the injury. You may need to support your forearm with your other hand. Other signs and symptoms include: ??? An abnormal bend or bump in your arm (deformity). ??? Swelling. ??? Bruising. ??? Numbness or weakness in your hand. ??? Inability to turn your hand from side to side (rotate). How is this diagnosed? Your health care provider may diagnose an ulnar fracture based on: ??? Your symptoms. ??? Your medical history, including any recent injury. ??? A physical exam. Your health care provider will look for any deformity and feel for tenderness over the break. Your health care provider will also check whether the bone is out of place. ??? An X-ray exam to confirm the diagnosis and learn more about the type of fracture. How is this treated? The goals of treatment are to get the bone in proper position for healing and to keep it from moving so it will heal over time. Your treatment will depend on many factors, especially the type of fracture that you have. ??? If the fractured bone: ? Is in the correct position (nondisplaced), you may only need to wear a cast or a splint. ? Has a slightly displaced fracture, you may need to have the bones moved back into place manually (closed reduction) before the splint or cast is put on. ??? You may have a temporary splint before you have a plaster cast. The splint allows room for some swelling. After a few days, a cast can replace the splint. ? You may have to wear the cast for about 6 weeks or as directed by your health care provider. ? The cast may be changed after about 3 weeks or as directed by your health care provider. ??? After your cast is taken off, you may need physical therapy to regain full movement in your wrist or elbow. ??? You may need emergency surgery if you have: ? A fractured bone that is out of position (displaced). ? A fracture with multiple fragments (comminuted fracture). ? A fracture that breaks the skin (open fracture). This type of fracture may require surgical wires, plates, or screws to hold the bone in place. ??? You may have X-rays every couple of weeks to check on your healing. Follow these instructions at home: ??? Keep the injured arm above the level of your heart while you are sitting or lying down. This helps to reduce swelling and pain. ??? Apply ice to the injured area: ? Put ice in a plastic bag. ? Place a towel between your skin and the bag. ? Leave the ice on for 20 minutes, 2?3 times per day. ??? Move your fingers often to avoid stiffness and to minimize swelling. ??? If you have a plaster or fiberglass cast: ? Do nottry to scratch the skin under the cast using sharp or pointed objects. ? Check the skin around the cast every day. You may put lotion on any red or sore areas. ? Keep your cast dry and clean. ??? If you have a plaster splint: ? Wear the splint as directed. ? Loosen the elastic around the splint if your fingers become numb and tingle, or if they turn cold and blue. ??? Do notput pressure on any part of your cast until it is fully hardened. Rest your cast only on a pillow for the first 24 hours. ??? Protect your cast or splint while bathing or showering, as directed by your health care provider. Do not put your cast or splint into water. ??? Take medicines only as directed by your health care provider. ??? Return to activities, such as sports, as directed by your health care provider. Ask your health care provider what activities are safe for you. ??? Keep all follow-up visits as directed by your health care provider. This is important. Contact a health care provider if: ??? Your pain medicine is not helping. ??? Your cast gets damaged or it breaks. ??? Your cast becomes loose. ??? Your cast gets wet. ??? You have more severe pain or swelling than you did before the cast. ??? You have severe pain when stretching your fingers. ??? You continue to have pain or stiffness in your elbow or your wrist after your cast is taken off. Get help right away if: ??? You cannot move your fingers. ??? You lose feeling in your fingers or your hand. ??? Your hand or your fingers turn cold and pale or blue. ??? You notice a bad smell coming from your cast. ??? You have drainage from underneath your cast. ??? You have new stains from blood or drainage seeping through your cast. This information is not intended to replace advice given to you by your health care provider. Make sure you discuss any questions you have with your health care provider. Document Released: 12/15/2006 Document Revised: 03/06/2017 Document Reviewed: 12/11/2014 [employer]ac Interactive Patient Education ? 2017 [employer] FOLLOW UP CARE Most conditions that [...] x-ray department to pick them up o [facility] # [phone] o [facility] # [phone] o [facility] # [phone] ?? If you had cultures done and [...] quit. o National Network of Tobacco Cessation BOwwiafer0-500-DUVK-NOW o [place] Lung Association o [place] Heart Association [phone] o Sai/Manuel Mccray [phone] FINANCIAL INFORMATION ?? [facility] provides financial counseling to anyone who requests our services. ?? Emergency Physicians are independently contracted to provide your care. You will receive a bill for the care provided to you by the Physician and/or the Physician Talent Acquisition Manager. This will be a separate bill from [...] prescriptions and follow-up instructions: Patient Education Materials: Orthopedics Ulnar Fracture Follow-Up Instructions: Follow Up With: Where: When: Follow up with specialist Within 1-2 days Comments: call for follow up appointment with orthopedist to replace cast. Follow Up With: Where: When: Return to Emergency Department Within As needed Comments: I, Crystal Archer, have received a copy of these discharge instructions and acknowledge understanding of these instructions. . I understand that my condition may require more care and will arrange for further treatment as recommended Patient Signature / or Patient Radiology Technician Provider Signature Date documented in this encounter Plan of Treatment Not on file documented as of this encounter Visit Diagnoses Not on filedocumented in this encounter
--- OUTSIDE RECORDS SUMMARY | 2024-05-30 08:32 | XMS_ITS | Encounter Summary ---
[facility] Organization [facility] Address [address] [id number] Care Team Providers Care Body Press Operator Name Role Phone Maria A Soria MAINTENANCE SPECIALIST Primary Care Provider [phone] Encounter Details Date Type Department Care Team (Late st Contact Info) Description 03/18/2023 Telephone [facility] PRIMARY CARE [address] [place] [phone] Maria A Soria, MAINTENANCE SPECIALIST [address] [place], [place] [id number] Social History Tobacco Use Types Packs/Day Years [...] Telephone Encounter - Betsey Roach MA - 03/18/2023 10:08 AM EDT Called and spoke with patient and advised her of results and she verbalized understanding * Telephone Encounter - Betsey Roach MA - 03/18/2023 10:08 AM EDT ----- Message from Maria A Soria APRN sent at 03/18/2023 8:31 AM EDT ----- I have reviewed Crystal's urine culture, growing greater than 100,000 units group b strep. I have sent prescription for seven days of keflex BID. Per Dr. Stevens's request I have also placed infectious disease consult for evaluation of recurrent UTI documented in this encounter Plan of Treatment Not on file documented as of this encounter Visit Diagnoses Not on filedocumented in this encounter Additional Health Concerns Infection Onset Date Last Indicated Resolved Time C.difficile (rule out) 03/15/2023 03/16/202303/20 9:08 PM EDT documented as of this encounter Care Teams Body Press Operator Relationship Specialty Start Date End Date Maria A Soria APRN [address] [place], [place] [id number] PCP - General Family Medicine 02/15/23 documented as of this encounter
--- OUTSIDE RECORDS SUMMARY | 2024-05-30 08:32 | XMS_ITS | Encounter Summary ---
Author Organization [employer] Address [address] [place] [address] Care Team Providers Care Review Engineer Name Role Phone Unavailable Primary Care Provider Unavailabl e Encounter Details Date Type Department Care Team (Late st Contact Info) Description 11/19/2018 Transcribed Document [facility] [place] Medicine [address] [place] [address] ProviderLaury MD [address] [place] [address] Social History Tobacco Use Types Packs/Day [...] Cerner Conversion Note - Laury ProviderMD - 11/19/2018 1:52 AM CDT [facility] ADDRESS [place], [place] [phone] Name:Crystal Archer Visit Date:11/18/2018 20:06:00 Emergency Department Care Providers: Physician: Clara Elias Phys Asst Physician: Our doctors and staff appreciate your choice of [facility] for your emergency medical care. Read these instructions carefully. Please call us if you have any questions about your medical problem. [facility] Emergency Department [phone] [facility] Emergency Department [phone] [facility] Emergency Department [phone] Patient Education Materials Gianni Crystal Jones has been given the following patient education materials: ENT Otitis Media, Adult Otitis media is redness, soreness, and puffiness (swelling) in the space just behind your eardrum (middle ear). It may be caused by allergies or infection. It often happens along with a cold. Follow these instructions at home: ??? Take your medicine as told. Finish it even if you start to feel better. ??? Only take flrl-fms-nrolefy or prescription medicines for pain, discomfort, or fever as told by your doctor. ??? Follow up with your doctor as told. Contact a doctor if: ??? You have otitis media only in one ear, or bleeding from your nose, or both. ??? You notice a lump on your neck. ??? You are not getting better in 3?5 days. ??? You feel worse instead of better. Get help right away if: ??? You have pain that is not helped with medicine. ??? You have puffiness, redness, or pain around your ear. ??? You get a stiff neck. ??? You cannot move part of your face (paralysis). ??? You notice that the bone behind your ear hurts when you touch it. This information is not intended to replace advice given to you by your health care provider. Make sure you discuss any questions you have with your health care provider. Document Released: 12/20/2008 Document Revised: 12/09/2016 Document Reviewed: 01/29/2014 Elsevier Interactive Patient Education ? 2017 [employer] Obstetrics and Gynecology Urinary Tract Infection, Adult Introduction A urinary tract infection (UTI) is an infection of any part of the urinary tract. The urinary tract includes the: ??? Kidneys. ??? Ureters. ??? Bladder. ??? Urethra. These organs make, store, and get rid of pee (urine) in the body. Follow these instructions at home: ??? Take lzla-iju-kagrhku and prescription medicines only as told by your doctor. ??? If you were prescribed an antibiotic medicine, take it as told by your doctor. Do not stop taking the antibiotic even if you start to feel better. ??? Avoid the following drinks:? Alcohol. ? Caffeine. ? Tea. ? Carbonated drinks. ??? Drink enough fluid to keep your pee clear or pale yellow. ??? Keep all follow-up visits as told by your doctor. This is important. ??? Make sure to:? Empty your bladder often and completely. Do not to hold pee for long periods of time. ? Empty your bladder before and after sex. ? Wipe from front to back after a bowel movement if you are female. Use each tissue one time when you wipe. Contact a doctor if: ??? You have back pain. ??? You have a fever. ??? You feel sick to your stomach (nauseous). ??? You throw up (vomit). ??? Your symptoms do not get better after 3 days. ??? Your symptoms go away and then come back. Get help right away if: ??? You have very bad back pain. ??? You have very bad lower belly (abdominal) pain. ??? You are throwing up and cannot keep down any medicines or water. This information is not intended to replace advice given to you by your health care provider. Make sure you discuss any questions you have with your health care provider. Document Released: 12/20/2008 Document Revised: 12/09/2016 Document Reviewed: 05/24/2016 ? 2017 Elsevier FOLLOW UP CARE Most conditions that require [...] x-ray department to pick them up o [facility] # [phone] o [facility] # [phone] o [facility] # [phone] ?? If you had cultures done and [...] quit. o National Network of Tobacco Cessation UNqlcswyx7-976-XKWU-NOW o [place] Lung Association o [place] Heart Association [phone] o Sai/Manuel Mccray [phone] FINANCIAL INFORMATION ?? [facility] provides financial counseling to anyone who requests our services. ?? Emergency Physicians are independently contracted to provide your care. You will receive a bill for the care provided to you by the Physician and/or the Physician Agency Legal Counsel. This will be a separate bill from [...] prescriptions and follow-up instructions: Patient Education Materials: ENT Otitis Media, Adult, Reig-we-Hmac Obstetrics and Gynecology Urinary Tract Infection, Adult, Spvd-uy-Lttb Follow-Up Instructions: Follow Up With: Where: When: Follow up with primary care provider Within 1-2 days Comments: Follow Up With: Where: When: Return to Emergency Department Within As needed Comments: Neelima Gianni Crystalabi Jones, have received a copy of these discharge instructions and acknowledge understanding of these instructions. . I understand that my condition may require more care and will arrange for further treatment as recommended Patient Signature / or Patient Floor Installer Provider Signature Date Date/Time 11/18/2018 21:52 [facility] Home Medications Name Crystal [...] appropriateness and dosages of all your medications. Neelima Gianni Crystalabi Jones, have received a copy of discharge home [...]
--- OUTSIDE RECORDS SUMMARY | 2024-05-30 08:32 | XMS_ITS | Encounter Summary ---
Author Organization [employer] [facility] [employer] Address [address] [place] [address] Care Team Providers Care Cutter Helper Name Role Phone Unavailable Primary Care Provider Unavailabl e Encounter Details Date Type Department Care Team (Late st Contact Info) Description 12/24/2018 Transcribed Document [facility] [place] [address] [place] [address] ProviderLaury MD [address] [place] [address] Social History Tobacco Use Types Packs/Day [...] Cerner Conversion Note - Laury ProviderMD - 12/24/2018 7:19 PM CDT [facility] Emergency Department Depart Summary PERSON INFORMATION Name Crystal Archer Age 28 Years 1990 Sex Female Language PCP Marital Status Phone [phone] Visit Id Visit Reason Specialty Enc Type Emergency Med Service Referred by Track Group [facility] Discharge Tracking Id [id number] Checkout 12/24/2018 15:19:27 Checkin 12/24/2018 15:01:00 Acuity 4 - Non-urgent [facility] Dispo Type Arrival 12/24/2018 15:01:00 Reg Status LOS 000 00:18 Address: [address] [place], [place] [address] [facility] [place] [address] POWERFORMS PHYSICIAN NOTES VITALS INFORMATION Vital Sign Triage Temp 98.6 Temp Route Oral/Mouth Pulse Rate 101 Respiratory Rate 20 Blood Pressure 179/ 89 LOCATION INFORMATION Arrival Nurse Unit Room Bed 12/24/2018 15:01:00 [facility] ED Waitroom ([facility]) 12/24/2018 15:04:15 [facility] ED 1 12/24/2018 15:19:27 [facility] ED Checkout ([facility]) MEDICAL INFORMATION Allergy Info: No Known Allergies PATIENT EDUCATION INFORMATION Instructions: Skin Yeast Infection Follow up: With: Address: When: Follow up with primary care provider Within As needed With: Address: When: Return to Emergency Department Within As needed DIAGNOSIS Electronically signed by Zuleyka Byrd Conversion Consumer Relations Complaint Clerk Cerner at 10/19/2022 11:23 AM CDT documented in this encounter Plan of Treatment Not on file documented as of this encounter Visit Diagnoses Not on filedocumented in this encounter
--- OUTSIDE RECORDS SUMMARY | 2024-05-30 08:32 | XMS_ITS | Encounter Summary ---
Author Organization [facility] Address [address] [place] [address] Care Team Providers Care Child Care Nurse Name Role Phone Unavailable Primary Care Provider Unavailabl e Encounter Details Date Type Department Care Team (Late st Contact Info) Description 12/24/2018 Transcribed Document [facility] [place] Family Medicine [address] [place] [address] ProviderLaury MD [address] [place] [address] Social History Tobacco Use Types Packs/Day [...] Laury ProviderMD - 12/24/2018 7:19 PM CDT [facility] ADDRESS [place], [place] [phone] Name:Crystal Archer Visit Date:12/24/2018 15:01:00 Emergency Department Care Providers: Physician: MEGHA MAN Physician: Our doctors and staff appreciate your choice of [facility] for your emergency medical care. Read these instructions carefully. Please call us if you have any questions about your medical problem. [facility] Emergency Department [phone] [facility] Emergency Department [phone] [facility] Emergency Department [phone] Patient Education Materials Gianni Crystal Jones has been given the following patient education materials: Infectious Disease Skin Yeast Infection Skin yeast infection is a condition in which there is an overgrowth of yeast (donaldo) that normally lives on the skin. This condition usually occurs in areas of the skin that are constantly warm and moist, such as the armpits or the groin. What are the causes? This condition is caused by a change in the normal balance of the yeast and bacteria that live on the skin. What increases the risk? This condition is more likely to develop in: ??? People who are obese. ??? women. ??? Women who take control pills. ??? People who have diabetes. ??? People who take antibiotic medicines. ??? People who take steroid medicines. ??? People who are malnourished. ??? People who have a weak defense (immune) system. ??? People who are 65 years of age or older. What are the signs or symptoms? Symptoms of this condition include: ??? A red, swollen area of the skin. ??? Bumps on the skin. ??? Itchiness. How is this diagnosed? This condition is diagnosed with a medical history and physical exam. Your health care provider may check for yeast by taking light scrapings of the skin to be viewed under a microscope. How is this treated? This condition is treated with medicine. Medicines may be prescribed or be available yilr-qgi-dgkesba. The medicines may be: ??? Taken by mouth (orally). ??? Applied as a cream. Follow these instructions at home: ??? Take or apply ptfi-nrt-tfmvmft and prescription medicines only as told by your health care provider. ??? Eat more yogurt. This may help to keep your yeast infection from returning. ??? Maintain a healthy weight. If you need help losing weight, talk with your health care provider. ??? Keep your skin clean and dry. ??? If you have diabetes, keep your blood sugar under control. Contact a health care provider if: ??? Your symptoms go away and then return. ??? Your symptoms do not get better with treatment. ??? Your symptoms get worse. ??? Your rash spreads. ??? You have a fever or chills. ??? You have new symptoms. ??? You have new warmth or redness of your skin. This information is not intended to replace advice given to you by your health care provider. Make sure you discuss any questions you have with your health care provider. Document Released: 03/21/2012 Document Revised: 02/27/2017 Document Reviewed: 01/05/2016 [employer] Interactive Patient Education ? 2019 [employer] FOLLOW UP CARE Most conditions that require [...] the x-ray department to pick them up [facility] # [phone] [facility] # [phone] o [facility] # [phone] ?? If you had cultures done and [...] quit. o National Network of Tobacco Cessation IRxwgqisf9-692-YYRK-NOW o [place] Lung Association o [place] Heart Association 5-559472-9294 o Sai/Manuel Mccray [phone] FINANCIAL INFORMATION ?? [facility] provides financial counseling to anyone who requests our services. ?? Emergency Physicians are independently contracted to provide your care. You will receive a bill for the care provided to you by the Physician and/or the Physician Plastic Outfitter. This will be a separate bill from [...] prescriptions and follow-up instructions: Patient Education Materials: Infectious Disease Skin Yeast Infection Follow-Up Instructions: Follow Up With: Where: When: Follow up with primary care provider Within As needed Comments: Follow Up With: Where: When: Return to Emergency Department Within As needed Comments: I, Crystal Archer, have received a copy of these discharge instructions and acknowledge understanding of these instructions. . I understand that my condition may require more care and will arrange for further treatment as recommended Patient Signature / or Patient Barber Shop Operator Provider Signature Date Date/Time 12/24/2018 15:19 [facility] Villanueva Home Medications Name Crystal [...]
--- OUTSIDE RECORDS SUMMARY | 2024-05-30 08:32 | XMS_ITS | Encounter Summary ---
Author Organization [employer] Address [address] [place] [address] Care Team Providers Care Clinical Business Analyst Name Role Phone Unavailable Primary Care Provider Unavailabl e Encounter Details Date Type Department Care Team (Late st Contact Info) Description 08/03/2018 Transcribed Document [facility] Family Medicine [address] [place] [address] ProviderLaury MD [address] [place] [id number] Social History Tobacco Use Types Packs/Day [...] Conversion Note - Laury ProviderMD - 08/03/2018 6:57 PM DROP PIT WORKER BBK Triage ED Entered On: 08/03/2018 14:06 EST Performed On: 08/03/2018 13:57 EST by ROSA FOSTER Triage Assessment Gynecologic Hx : N/A Medication Profile, Med Rec : Open ROSA FOSTER - 08/03/2018 14:10 EST Triage Date/Time : 08/03/2018 13:57 EST ROSA FOSTER - 08/03/2018 13:57 EST DCP GENERIC CODE Tracking Group : GM Nicolas Tracking Acuity : 3 - Urgent GM CRISTIANALEXANDREJd Conrad 08/03/2018 13:57 EST ED Visit Reason : Urinary/Voiding Complaints Primary Care Provider : Jax Hsu Accompanied By : Family/Spouse/SO Arrival Mode : Ambulatory Chief Complaint : C/O low back pain, dysuria since 0430. D/CD from [facility] 07/22 AMA for UTI. Health History Reviewed : Yes ROSA FOSTER - 08/03/2018 13:57 EST Health History ED Grid Alcohol Use : No Caffeine Use : Yes Substance Abuse : No Tobacco Use : Yes, 1ppd Asthma/COPD : No Cancer : No CVA/TIA : No Mental Illness : No Dementia : No Diabetes : Yes, insulin pump 2014 General Cardiac : No GI 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 : No Gathering Worker Hx : No Heart Attack : No [...] History : No Pathway Planning : No ROSA FOSTER 08/03/2018 13:57 EST Temp : 98.1 Deg F(Converted to: 36.7 Deg C) Temp Route : Oral/Mouth Systolic Blood Pressure : 152 mmHg (HI) Diastolic Blood Pressure : 87 mmHg Pulse Rate : 90 bpm Respiratory Rate : 18 Breaths/Min Oxygen Saturation : 100 % Oxygen Therapy Resp Assess : Room air Pain Symptoms : Yes LMP date : 07/27/2018 EST Height/Weight Med Rec : Open Immunization, Med Rec : Open Allergy Profile, Med Rec : Open Workman's Compensation : No Tetanus Immunization : Less than 5 years Preferred Communication Mode : Verbal Languages : Vincentian Child/Parent Domestic Concerns : None Threats of Suicide : No ROSA FOSTER 08/03/2018 13:57 EST Height and Weight Height Source : Stated Height Entry Format : Gillespie Height, Inches : 65 Inch(Converted to: 5 ft 5 Inch, 165.10 cm) Clinical Height : 165.1 cm Weight Source : Stated Type of Weight Measurement Est : Gillespie Weight, est lb : 215 lb Estimated Clinical Dosing Weight : 97.73 kg [place] Body Weight : 57 kg Body Surface Area Estimated : 2.12 m2 Body Mass Index Estimated : 35.85 kg/m2 ROSA FOSTER Anamaria - 08/03/2018 13:57 EST Immunization Status Immunizations Reviewed : Up to date H1N1 Immunizations Current : No Tetanus Immunization : Less than 5 years Flu Immunization Current : Yes ROSA FOSTER Anamaria - 08/03/2018 13:57 EST Medication List ED Medications Reviewed : Yes Source of Information : Patient ROSA FOSTER Anamaria - 08/03/2018 14:10 EST Medication List (As Of: 08/03/2018 14:16:43 EST) Home Meds sodium bicarbonate : sodium bicarbonate ; Status: Documented ; Ordered As Mnemonic: sodium bicarbonate ; Simple Display Line: 0 Refill(s) ; Catalog Code: sodium bicarbonate ; Order Dt/Tm: 08/03/2018 14:16:25 loratadine : loratadine ; Status: Documented ; Ordered As Mnemonic: loratadine 10 mg oral capsule ; Simple Display Line: 0 Refill(s) ; Catalog Code: loratadine ; Order Dt/Tm: 08/03/2018 14:10:52 insulin lispro : insulin lispro ; Status: Documented ; Ordered As Mnemonic: Admelog 100 units/mL injectable solution ; Simple Display Line: 0 Refill(s) ; Catalog Code: insulin lispro ; Order Dt/Tm: 08/03/2018 14:12:16 gabapentin : gabapentin ; Status: Documented ; Ordered As Mnemonic: gabapentin 300 mg oral capsule ; Simple Display Line: 0 Refill(s) ; Catalog Code: gabapentin ; Order Dt/Tm: 08/03/2018 14:11:48 furosemide : furosemide ; Status: Documented ; Ordered As Mnemonic: Lasix 40 mg oral tablet ; Simple Display Line: 0 Refill(s) ; Catalog Code: furosemide ; Order Dt/Tm: 08/03/2018 14:13:11 fenofibrate : fenofibrate ; Status: Documented ; Ordered As Mnemonic: fenofibrate ; Simple Display Line: 160 mg, Oral, Daily, 0 Refill(s) ; Catalog Code: fenofibrate ; Order Dt/Tm: 08/03/2018 14:11:10 carvedilol : carvedilol ; Status: Documented ; Ordered As Mnemonic: carvedilol 3.125 mg oral tablet ; Simple Display Line: 0 Refill(s) ; Catalog Code: carvedilol ; Order Dt/Tm: 08/03/2018 14:12:57 aspirin : aspirin ; Status: Documented ; Ordered As Mnemonic: aspirin 81 mg oral tablet ; Simple Display Line: 0 Refill(s) ; Catalog Code: aspirin ; Order Dt/Tm: 08/03/2018 14:11:26 amLODIPine : amLODIPine ; Status: Documented ; Ordered As Mnemonic: amLODIPine 2.5 mg oral tablet ; Simple Display Line: 0 Refill(s) ; Catalog Code: amLODIPine ; Order Dt/Tm: 08/03/2018 14:12:44 amLODIPine-atorvastatin : amLODIPine-atorvastatin ; Status: Documented ; Ordered As Mnemonic: amLODIPine-atorvastatin ; Simple Display Line: 0 Refill(s) ; Catalog Code: amLODIPine-atorvastatin ; Order Dt/Tm: 08/03/2018 14:12:32 Allergy Profile (As Of: 08/03/2018 14:06:21 EST) Allergies (Active) No Known Allergies Estimated Onset Date: Unspecified ; Created By: Blanca Chisholm RN; Reaction Status: Active ; Category: Drug ; Substance: No Known Allergies ; Type: Allergy ; Updated By: Blanca Chisholm RN; Reviewed Date: 08/03/2018 14:02 EST Pain Pain Assessment Grid Location : Other: low back, dysuria Intensity : 10 ROSA FOSTER D - 08/03/2018 13:57 EST documented in this encounter Plan of Treatment Not on file documented as of this encounter Visit Diagnoses Not on filedocumented in this encounter
--- OUTSIDE RECORDS SUMMARY | 2024-05-30 08:32 | XMS_ITS | Encounter Summary ---
Author Organization [facility] Address [address] [place] [address] Care Team Providers Care Clock And Watch Hands Mounter Name Role Phone Maria A Soria CORN DETASSELER Primary Care Provider [phone] Reason for Visit * Reason Onset Date Comments Med Refill 02/16/2023 Encounter Details Date Type Department Care Team (Late st Contact Info) Description 02/16/2023 Refill [facility] [address] [place] [phone] Maria A Soria, CORN DETASSELER [address] [place] [address] Persistent depressive disorder Social History Tobacco Use Types Packs/Day Years [...] encounter Miscellaneous Notes * Telephone Encounter - [place], Betsey, MA - 02/16/2023 1:44 PM EDT Last visit on 02/16/2023 Rx sent * Telephone Encounter - Jessenia Gomes RegSched Rep - 02/16/2023 1:31 PM EDT Caller: FREDDIE ARCHER Relationship: SELF Best call back number: [phone] Requested Prescriptions: Requested Prescriptions Pending Prescriptions Disp Refills buPROPion XL (Wellbutrin XL) 150 MG 24 hr tablet 90 tablet 0 Sig: Take 1 tablet by mouth Daily. Pharmacy where request should be sent: [facility] [address] [place] [address] [place] [address] [facility] [phone] FX Last office visit with prescribing clinician: 02/15/2023 Last telemedicine visit with prescribing clinician: Visit date not found Next office visit with prescribing clinician: 03/15/2023 Additional details provided by patient: PATIENT STATES MEDICATION WAS SENT TO WRONG PHARMACY Does the patient have less than a 3 day supply: [x] Yes [] No Would you like a call back once the refill request has been completed: [] Yes [x] No If the office needs to give you a call back, can they leave a voicemail: [] Yes [x] No Fahad Jackson 02/16/23 13:32 EDT documented in this encounter Plan of Treatment Not on file documented as of this encounter Visit Diagnoses Diagnosis Persistent depressive disorder documented in this encounter Care Teams Clock And Watch Hands Mounter Relationship Specialty Start Date End Date Maria A Soria APRN [address] [place] [id number] PCP - General Family Medicine 02/15/23 documented as of this encounter
--- OUTSIDE RECORDS SUMMARY | 2024-05-30 08:32 | XMS_ITS | Encounter Summary ---
Author Organization [employer] Address [address] [place] [address] Care Team Providers Care Spanisher Name Role Phone Unavailable Primary Care Provider Unavailabl e Encounter Details Date Type Department Care Team (Late st Contact Info) Description 10/31/2018 Transcribed Document [facility] [place] [facility] [place] [address] ProviderLaury MD [address] [place] [id number] Social History Tobacco Use Types Packs/Day Years [...] Laury ProviderMD - 10/31/2018 1:17 AM CDT [facility] [place], [place] [phone] Name:Crystal Archer Visit Date:10/30/2018 20:23:00 Emergency Department Care Providers: Physician: MEGHA MAN Physician: Our doctors and staff appreciate your choice of [facility] for your emergency medical care. Read these instructions carefully. Please call us if you have any questions about your medical problem. [facility] Emergency Department [phone] [facility] Emergency Department [phone] [facility] Emergency Department [phone] Patient Education Materials Gianni Crystal Jones has [...] 10/19/2011 Document Revised: 11/11/2016 Document Reviewed: 06/30/2015 [employer] Interactive Patient Education ? 2017 [employer] FOLLOW UP CARE Most conditions that [...] x-ray department to pick them up o [facility] # [phone] o [facility] # [phone] o [facility] # [phone] ?? If you had cultures done and [...] quit. o [employer] Tobacco [employer]essation RGhzupokz6-412-ZZBF-NOW o [employer] o [employer] 6-501119-1162 o Sai/Manuel Mccray [phone] FINANCIAL INFORMATION ?? [facility] provides financial counseling to anyone who requests our services. ?? Emergency Physicians are independently contracted to provide your care. You will receive a bill for the care provided to you by the Physician and/or the Physician Sexual Abuse Counsellor. This will be a separate bill from [...] to Emergency Department Within As needed Comments: Gianni Ortez Holly Nashae, have received a copy of these discharge instructions and acknowledge understanding of these instructions. . I understand that my condition may require more care and will arrange for further treatment as recommended Patient Signature / or Patient Slasher Operator Provider Signature Date Date/Time 10/30/2018 21:17 [facility] Home Medications Name Crystal [...] LONGER TAKE THESE MEDICATIONS Medication Dose Frequency amLODIPine 2.5 mg oral tablet [place] 5 mg-325 mg oral tablet Comment: This med list is based on information you provided. Please take this form with you to check with your doctor(s) the appropriateness and dosages of all your medications. IGianni Holly Nashae, have received a copy of discharge home [...]
--- OUTSIDE RECORDS SUMMARY | 2024-05-30 08:32 | XMS_ITS | Clinical Summary ---
Author Organization [facility] Address [address] [place] [address] Care Team Providers Care Noodle Press Operator Name Role Phone Yang Maria A Doyle APRN Primary Care Provider Allergies Active Allergy Reactions Criticality Noted Date Comments Ibuprofen Other (See Comments) High 03/12/2019 end stage kidney failure Medications atorvastatin (LIPITOR) 40 MG tablet TAKE 1 TABLET EVERY DAY 0 12/23/19 16 Active lisinopril (PRINIVIL,ZESTRIL) 10 MG tablet Takes 20mg daily 0 12/23/19 16 Active ondansetron ODT (ZOFRAN-ODT) 4 MG disintegrating tablet Take 1 tablet by mouth Every 6 (Six) Hours As Needed for Nausea or Vomiting. 20 tablet 03/14/20 18 Active sodium bicarbonate 650 MG tablet Take 2 tablets by mouth 2 (Two) Times a Day. 240 tablet 1 06/14/20 18 Active insulin lispro (humaLOG) 100 UNIT/ML injection Inject under the skin into the appropriate area as directed 3 (Three) Times a Day Before Meals. Uses Insulin pump Active carvedilol (COREG) 6.25 MG tablet Take 1 tablet by mouth 2 (Two) Times a Day With Meals. Active acetaminophen (Tylenol) 325 MG tablet Take 2 tablets by mouth Every 6 (Six) Hours As Needed for Moderate Pain . 30 tablet 05/25/20 20 Active calcitriol (ROCALTROL) 0.5 MCG capsule Take 1 capsule by mouth Daily. Active calcium acetate (PHOS BINDER,) 667 MG capsule capsule TAKE 1 CAPSULE BY MOUTH THREE TIMES DAILY WITH MEALS AND 1 CAPSULE WITH A SNACK 11/11/19 23 Active Vitamin D, Ergocalciferol, 15541 units capsule 50,000 Int'l Units. 06/03/20 20 Active OneTouch Ultra test strip USE INSTRUCTED TO CHECK BLOOD GLUCOSE 4 TIMES DAILY IN EVENT OF CGM FAILURE Active insulin aspart (novoLOG) 100 UNIT/ML injection FOR USE IN INSULIN PUMP TO MAX DAILY DOSE 100 04/06/20 21 Active Active Problems Problem Noted Date Diagnosed Date Recurrent UTI 03/15/2023 Assessment & Plan (04/25/2023 11:07 AM EDT): Has appt with ID on May 05 Assessment & Plan (03/15/2023 5:08 PM EDT): Patient recently completed treatment for E. coli UTI through her nephrology group. She was treated with Keflex and Flagyl. Unfortunately she feels that symptoms resumed yesterday and include burning with urination and irritation. He took a Diflucan yesterday thinking perhaps it was a yeast infection. Case discussed with her dialysis nurse earlier today who reports Dr. Stevens would like referral to infectious disease if culture positive for recurrent E. coli infection. Urine culture obtained today Annual physical exam 03/15/2023 Diarrhea 03/15/2023 Assessment & Plan (04/25/2023 11:08 AM EDT): Diarrhea resolved. Assessment & Plan (03/15/2023 5:11 PM EDT): Patient reports frequent diarrhea over the last several weeks, she reports that to be explosive and foul-smelling. She was taken off her magnesium supplement thinking it perhaps was causing the GI issues but it has failed to resolve. Will obtain GI panel for ova parasites and C. difficile toxin. Cervical cancer screening 03/15/2023 Type 1 diabetes mellitus with hyperglycemia 07/2022 Assessment & Plan (04/25/2023 5:04 PM EDT): Patient followed by endocrinology, last A1c 5.3%. Assessment & Plan (03/15/2023 5:07 PM EDT): Patient followed by endocrinology for type 1 diabetes that was diagnosed at the age of [age] years old. History of poor compliance given development of diabetic nephropathy and retinopathy. Currently utilizing insulin pump. Glucose 160 this morning. Has dexcom but doesn't wear all the time. Last hemoglobin A1c 3 months ago was 5.3%. Diabetic foot exam performed today and satisfactory. Does have diabetic neuropathy, previously treated with gabapentin but induced too much drowsiness so she is no longer medicated. Assessment & Plan (02/15/2023 3:08 PM EDT): Patient followed by endocrinology for type 1 diabetes that was diagnosed at the age of 12 years. History of poor compliance given development of diabetic nephropathy. Currently utilizing insulin pump. Is not up-to-date on diabetic foot exam or vision exam. Has been followed by [facility]. Reports last A1c to be approximately 6.4% ESRD (end stage renal disease) on dialysis 02/15 Assessment & Plan (04/25/2023 5:03 PM EDT): Continues 6 night weekly nocturnal peritoneal dialysis, followed by Dr. Stevens at [facility]. Working towards renal transplant with [facility].. Assessment & Plan (03/15/2023 5:10 PM EDT): Etiology of end-stage renal disease appears to be hypertensive nephrosclerosis as well as diabetic nephropathy. She was a noncompliant type I diabetic for many years, diagnosed at the age of 12. She is currently performing home peritoneal dialysis nocturnally 6 days/week. Working towards renal transplant with [facility]. Followed by [facility], Dr. Stevens. Assessment & Plan (02/15/2023 3:01 PM EDT): Etiology of end-stage renal disease appears to be hypertensive nephrosclerosis as well as diabetic Nephropathy. She was a noncompliant type I diabetic for many years, diagnosed at the age of 12. She is currently performing home peritoneal dialysis nocturnally 6 days/week. Working towards renal transplant with [facility]. To pursue transplant services at [facility] as well but finances are making that impossible at the current time. Chronic kidney disease-mineral and bone disorder 02/15/2023 Assessment & Plan (04/25/2023 11:07 AM EDT): Recent change in calcitriol. Assessment & Plan (02/15/2023 3:04 PM EDT): Patient suffers from end-stage renal disease bone mineral disorder. Utilizing calcium acetate 3 times daily with meals for hyperphosphatemia. He notes poor compliance with this regimen due to diarrhea. He has discussed the side effects with Dr. Stevens who request that she attempt to stay on the medication for another month then they would consider changing phosphate binder. Discussed importance of compliance with renal diet and medication regimen in order to avoid calciphylaxis History of bariatric surgery 02/15/2023 Assessment & Plan (03/15/2023 5:09 PM EDT): Patient underwent sleeve gastrectomy in December 2019 with max weight of 398 pounds. She is currently 157 pounds. Assessment & Plan (02/15/2023 2:59 PM EDT): Underwent sleeve gastrectomy in December 2019 with maximum weight of 398 pounds. Currently weighs 157 pounds. 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 Receiving Epogen and iron as indicated per nephrology Chronic kidney disease, stage IV (severe) 2018 Pyelonephritis, acute 07/21/2018 Type 1 diabetes mellitus wit h stage 3 chronic kidney disease 07/21/2018 Acute hyperkalemia 07/21/2018 Essential hypertension 07/21/2018 Assessment & Plan (04/25/2023 5:04 PM EDT): Patient with significant hypertension while taking Effexor, now back down to baseline level, 110/74 in office today with cessation of Effexor Assessment & Plan (03/15/2023 5:10 PM EDT): Blood pressure well controlled on current medications which include carvedilol 6.25 mg twice daily and lisinopril 10 mg once daily. Blood pressure in office today is 128/82. She notes some mornings after performing peritoneal dialysis systolic pressures in the 80s. Assessment & Plan (02/15/2023 3:00 PM EDT): Blood pressure well controlled on current medications which include carvedilol 6.25 mg twice daily and lisinopril 10 mg once daily. Blood pressure in office today, 112/76. He notes some mornings after performing peritoneal dialysis systolic pressures in the 80s. I have advised her to make Dr. Stevens aware of these episodes of hypotension, perhaps her PD prescription may change to promote less ultrafiltration. 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 We are rechecking her lipid panel today Assessment & Plan (02/15/2023 2:58 PM EDT): Patient reports having routine lipid panel checked since 2020, those results are not currently available. He is not currently utilizing any medications to treat hyperlipidemia however past medications include fenofibrate 145 mg daily. Return for annual physical at which time we will recheck her lipids Depression 12/30/2015 Assessment & Plan (04/25/2023 5:03 PM EDT): Presents today for follow-up after initiation of venlafaxine 4 weeks ago. Patient with longstanding history of depression due to an unfortunate childhood with an alcoholic/drug addicted mother. Patient has history of drug abuse herself. She has not been under the care of any healthcare providers in recent years. I have encouraged her to pursue regular counseling and therapy but she continues to decline. She was initiated on bupropion 150 mg once daily approximately 3 months ago which she felt she did not receive any benefit from. She also reported adverse effects from fluoxetine in the past. During her last visit we added venlafaxine 37.5 mg once daily. Patient notes the medication made her blood pressure astronomically high, systolic of 206, diastolic of 107. She reports she saw her violin teacher who wanted to increase her blood pressure medications but she refused stating she knew she stopped the medications her blood pressure would return to normal. She is now off both BuSpar and venlafaxine with blood pressure 110/74 in office today. Patient feels her mood is stable currently without medications due to some decrease stressors in the home. Her zpptnh-ha-nqh with whom she help caregive from Valentina's disease, decreasing some of her personal obligations. Assessment & Plan (03/15/2023 5:12 PM EDT): Patient with longstanding history of depression due [...] for efficacy in 4 to 6 weeks Assessment & Plan (02/15/2023 3:03 PM EDT): Patient with longstanding history of depression due to a unfortunate childhood with an alcoholic/drug addict mother who did not care for her appropriately. Also has history of drug abuse herself. She is not under the care of any mental health providers at this time. Discussed benefits of regular counseling and therapy particularly with her traumatic past. Denies any SI or HI. Feels she would benefit from antidepressant therapy. Had adverse effects from fluoxetine in the past. -Initiate Wellbutrin 150 mg once daily -Follow-up in 4 weeks to monitor efficacy Restless leg 12/30/2015 Resolved Problems Problem Noted Date Diagnosed Date Resolved Date Type 1 diabetes mellitus with hyperglycemia 02/15/2023 02/15/2023 Type 2 diabetes mellitus with hyperglycemia 12/30/2015 02/15/2023 Immunizations Name Administration Dates Next Due 31-influenza Vac Quardvalent Preservativ 019,04/06/2018 Fluzone (or Fluarix & Flulav al for VFC) >6mos 04/07/2021,04/22/2020,05/06/2017 Fluzone Quad >6mos (Multi-dose) 04/05/2012 Hepatitis A 01/29/2019,07/27/2018 Influenza Seasonal Injectable 04/05/2012 Pneumococcal Polysaccharide (PPSV23) 12/21/2018 TD Preservative Free (Tenivac) 02/15/2018 Family History Relation Name Status Comments Father Alive Mother Alive Social [...] Brief Depression Severity Measure Score 0 02/15/2023 Abuse Screen Answer Date Recorded Unsafe at Home or Work/School Not on file Feels Threatened by Someone? Not on file 01/2023 Does Anyone Keep You from Co ntacting Others or Doint Things Outside the Home? Not on file 04/23/2023 Physical Sign of Abuse Present Not on file 1 Housing Stability Answer Date Recorded Current Living Arrangements Not on file 01/2023 Potentially Unsafe Housing Conditions Not on lashae e 04/23/2023 Family and Community Support Answer Chucho e Recorded Help with Day-to-Day Activities Not on file 04/23/2023 Lonely or Isolated Not on file 04/23/2023 Employment Answer Date Recorded Do you want help finding or keeping work or a vladislav b? Not on file 04/23/2023 Disabilities Answer Date Recorded Concentrating, Remembering, or Making Decisions Difficulty Not on file 04/23/2023 Doing Errands Independently Difficulty Not on fi le 04/23/2023 Education Answer Date Recorded Help with school or training? Not on file Preferred Language Not on file 04/23/2023 PHQ-2 Answer Date Recorded Retired PHQ-9: Brief Depression Severity Measure Score 0 02/15/2023 Comments No Sex and Gender Information Value Date Recorded Sex Assigned at Not on file Legal Sex Female 3:21 PM EDT Gender Identity Not on file Sexual Orientation Not on file Last Filed Vital Signs Vital Sign Reading Time Taken Comments Blood Pressure 110/74 04/25/2023 10:35 AM EDT Pulse 70 04/25/2023 10:35 AM EDT Temperature 36.8 ??C (98.2 ??F) 04/25/2023 10:35 AM E DT Respiratory Rate 18 04/25/2023 10:35 AM EDT Oxygen Saturation 98% 04/25/2023 10:35 AM EDT Inhaled Oxygen Concentration - - Weight 69.7 kg (153 lb 9.6 oz) 04/25/2023 10:35 AM EDT Height 162.6 cm (5' 4 ) 04/25/2023 10:35 AM EDT Body Mass Index 26.37 04/25/2023 10:35 AM EDT Plan of Treatment Health Maintenance Due Date Last Done Comments Annual Gynecologic Pelvic an d Breast Exam 1989 Hepatitis B (1 of 3 - 19+ 3- dose series) 2008 PAP SMEAR 12/30/2015 URINE MICROALBUMIN 07/23/2017 07/23/2016, 06/17/2016 Pneumococcal Vaccine 0-64 (2 of 2 - PCV) 12/22/2019 12/21/2018 DIABETIC EYE EXAM 12/31/2023 12/30/2022 INFLUENZA VACCINE 02/16/2024 04/13/2023, , 04/22/2020, Additional history exists ANNUAL PHYSICAL 03/15/2024 03/15/2023 DIABETIC FOOT EXAM 03/15/2024 03/15/2023, 0 03/15/2023, 03/15/2023, Additional history exists COVID-19 Vaccine (1 - 2023-2 5 season) 2024 LIPID PANEL 05/19/2024 05/19/2023, 08/2022, 03/15/2023, Additional history exists HEMOGLOBIN A1C 11/20/2024 05/23/2024, 1210/2022, 06/20/2023, Additional history exists TDAP/TD VACCINES (2 - Tdap) 02/16/2028 02/15/2018 HEPATITIS C SCREENING Completed 05/19/2023 , 05/19/2023, 07/23/2019, Additional history exists Procedures Procedure Name Priority Date/Time Associated Diagnosis Comments HEMOGLOBIN A1C Routine 03/15/2023 10:03 AM EDT Type 1 diabetes mellitus with hyperglycemia LIPID PANEL Routine 03/15/2023 10:03 AM EDT Essential hypertension HEPATITIS C ANTIBODY Routine 07/23/2019 10:03 AM EST Chronic kidney disease, stage V PROTEIN, URINE, 24 HOUR Routine 07/23/2016 7:22 PM EST Routine general medical examination at a health care facility [ICD-10-CM] from Last 3 Months or Most Recently Relevant to Health Maintenance Results * (ABNORMAL) Hemoglobin A1c (03/15/2023 10:03 AM EDT) Hemoglobin A1C 5.9(H) 4.8 - 5.6 % [facility] Comment: ? Prediabetes: 5.7 - 6.4 ? Diabetes: >6.4 ? Glycemic control for adults with diabetes: <7.0 Blood Structure of right upper limb / Unknown 03/15/2023 10:03 AM EDT 03/16/2023 Comment:Blood Release to pat i Narrative [facility] (AMBULATORY) - 03/16/2023 9:07 AM EDT Performed at: ??01 - [facility] [address] ??[id number] Construction Manager: Jacob Whaley PhD, Phone: ??[phone] Maria A Soria APRN LAB BLOOD ORDERABLES Final Result Performing Organization Address City/[facility]/ZIP Co de Phone Number [facility] (AMBULAT[facility]) [address] [place] [address], [place] [phone] [facility] [address] [place] [address], [place] [phone] * (ABNORMAL) Lipid Panel (03/15/2023 10:03 AM [...] Comment:Blood Release to pat i Narrative [facility] (AMBULATORY) - 03/16/2023 9:07 AM EDT Performed at: ??01 - [facility] [address] ??[id number] Construction Manager: Jacob Whaley PhD, Phone: ??[phone] Maria A Soria APRN LAB BLOOD ORDERABLES Final Result Performing Organization Address City/[facility]/ZIP Co de Phone Number [facility] [address] [place] [address], [place] [phone] [facility] [address] [place] [address], [place] [phone] * Hepatitis C Antibody (07/23/2019 10:03 AM EST) Pathologist [facility] Hepatitis C Ab Non-Reacti ve Non-Reacti ve 07/23/2019 6:31 PM EST [facility] Blood Venipuncture / Unknown 07/23/2019 10:03 AM EST 07/23/2019 10:38 AM EST Mukul Stevens MD LAB BLOOD ORDERABLES F inal Result Performing Organization Address [facility]/ZIP Co de Phone Number [facility]
[address] [place] [address], [place] [phone] * (ABNORMAL) Protein, Urine, 24 Hour (07/23/2016 7:22 PM EST) [facility] Protein, 24H Urine 6,460.0(H) 42.0 - 225.0 mg/24hours 07/24/2016 9:25 PM EST [facility] Total Protein, Urine 380.0(H) 1.0 - 14.0 mg/dL 07/24/2016 9:25 PM EST [facility] 24H Urine Volume 1,700 mL 07/24/2016 9:25 PM EST [facility] Time (Hours) 24 hrs 07/24/2016 9:25 PM EST [facility] 24 Hour Urine Urine specimen collection, clean catch / Unknown Collection / Unknown 07/23/2016 7:22 PM EST 07/24/2016 7:24 PM EST [facility] - 07/24/2016 9:25 PM EST Reference ranges are based on a 24 hour period, interperet results accordingly. us Submitter Client URINE ORDERABLES Final Result Performing Organization Address [facility] Co de Phone Number [facility]
[address] [place] [address], [place] [phone] from Last 3 Months or Most Recently Relevant to [place] [address] Advance Directives * CPR (Attempt to Resuscitate) (Latest Code Status on File) Date Activated Date Inactivated Comments 07/21/2018 10:06 PM 07/22/2018 10:09 PM Question Answer Comments Code Status (Patient has no pulse and is not breathing): CPR (Attempt to Resuscitate) Medical Interventions (Patie nt has pulse or is breathing): Full Level Of Support Discussed With: Patient * CPR (Attempt to Resuscitate) Date Activated Date Inactivated Comments 06/13/2018 1:58 PM 06/14/2018 2:53 PM Question Answer Comments Code Status (Patient has no pulse and is not breathing): CPR (Attempt to Resuscitate) Medical Interventions (Patie nt has pulse or is breathing): Full Care Teams Noodle Press Operator Relationship Specialty Start Date End Date Maria A Soria APRN [address] [place] [address] PCP - General Family Medicine 02/15/23
--- OUTSIDE RECORDS SUMMARY | 2024-05-30 08:32 | XMS_ITS | Encounter Summary ---
Author Organization [employer] Address [address] [place] [address] Care Team Providers Care Packaging Inspector Name Role Phone Unavailable Primary Care Provider Unavailabl e Encounter Details Date Type Department Care Team (Late st Contact Info) Description 11/19/2018 Transcribed Document [facility] [address] [place] [address] ProviderLaury MD [address] [place] [id number] Social History Tobacco Use Types Packs/Day [...] Laury ProviderMD - 11/19/2018 1:52 AM CDT [facility] [place], [place] [phone] Name:Crystal Archer Visit Date:11/18/2018 20:06:00 Emergency Department Care Providers: Physician: Clara Elias Phys Asst Physician: Our doctors and staff appreciate your choice of [facility] for your emergency medical care. Read these instructions carefully. Please call us if you have any questions about your medical problem. [facility] Emergency Department [phone] [facility] Emergency Department [phone] [facility] Emergency Department [phone] Patient Education Materials Gianni Crystal Jones has [...] start to feel better. ??? Only take zhwu-uyr-fitayac or prescription medicines for pain, discomfort, or [...] 01/29/2014 Elsevier Interactive Patient Education ? 2017 [employer] Obstetrics and Gynecology Urinary Tract Infection, Adult Introduction A urinary tract infection (UTI) is an infection of any part of the urinary tract. The urinary tract includes the: ??? Kidneys. ??? Ureters. ??? Bladder. ??? Urethra. These organs make, store, and get rid of pee (urine) in the body. Follow these instructions at home: ??? Take qgng-hhu-ygkxtef and prescription medicines only as told by [...] x-ray department to pick them up o [facility] # [phone] o [facility] # [phone] o [facility] # [phone] ?? If you had cultures done and [...] quit. o National Network of Tobacco Cessation [id number]-[id number] o [employer] o [employer] [phone] o Sai/Manuel Mccray [phone] FINANCIAL INFORMATION ?? [facility] provides financial counseling to anyone who requests our services. ?? Emergency Physicians are independently contracted to provide your care. You will receive a bill for the care provided to you by the Physician and/or the Physician Ergonomics Technician. This will be a separate bill from [...] Patient Education Materials: ENT Otitis Media, Adult, Tqxr-us-Pdco Obstetrics and Gynecology Urinary Tract Infection, Adult, Frmn-xu-Sdep Follow-Up Instructions: Follow Up With: Where: When: [...] as recommended Patient Signature / or Patient Veterinary Livestock Inspector Provider Signature Date Electronically signed by Zuleyka Byrd Conversion Radioactive Waste Disposal Dispatcher Cerner at 10/19/2022 11:23 AM CDT documented in this encounter Plan of Treatment Not on file documented as of this encounter Visit Diagnoses Not on filedocumented in this encounter
--- OUTSIDE RECORDS SUMMARY | 2024-05-30 08:32 | XMS_ITS | Encounter Summary ---
Author Organization [employer] Address [address] [place] [address] Care Team Providers Care Obstetrics Gynecology Physician Name Role Phone Unavailable Primary Care Provider Unavailabl e Encounter Details Date Type Department Care Team (Late st Contact Info) Description 11/19/2018 Transcribed Document [facility] [place] [address] [place] [address] ProviderLaury MD [address] [place] [address] Social History Tobacco Use Types Packs/Day [...] Conversion Note - Laury ProviderMD - 11/19/2018 12:14 AM CDT [facility]K Triage ED Entered On: 11/18/2018 20:19 EDT Performed On: 11/18/2018 20:14 EDT by Marry Erickson Triage Assessment Triage Date/Time : 11/18/2018 20:14 EDT Marry Erickson - 11/18/2018 20:14 EDT DCP GENERIC CODE Tracking Acuity : 4 - Non-urgent BBK Tracking Group : BBK [place] Dre, Marry 11/18/2018 20:14 EDT ED Visit Reason : Throat Complaint Accompanied By : Family/Spouse/SO Arrival Mode : Private vehicle Chief Complaint : Patient c/o sore throat since this morning, patients child has strep currently, patient c/o dsyuria, patient also has dental complaint. Health History Reviewed : Yes Marry Erickson 11/18/2018 20:14 EDT Health History ED Grid Alcohol Use : No Caffeine Use : Yes Substance Abuse : No Tobacco Use : Yes, 1ppd Asthma/COPD : No Cancer : No CVA/TIA : No Mental Illness : No Dementia : No Diabetes : Yes, insulin pump 2014 General Cardiac : No GI 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 : No Board Saw Runner Hx : No Heart Attack : No [...] No, Patient seeind cancer doc on 12/12/17 Marry Erickson 11/18/2018 20:14 EDT Temp : 99.0 Deg F(Converted to: 37.2 Deg C) Temp Route : Oral/Mouth Systolic Blood Pressure : 147 mmHg (HI) Diastolic Blood Pressure : 87 mmHg Pulse Rate : 107 bpm (HI) Respiratory Rate : 18 Breaths/Min Oxygen Saturation : 99 % Oxygen Therapy Resp Assess : Room air Pain Symptoms : Yes LMP date : 11/08/2018 EDT Height/Weight Med Rec : Open Medication Profile, Med Rec : Open Allergy Profile, Med Rec : Open Workman's Compensation : No Tetanus Immunization : Unknown Preferred Communication Mode : Verbal Languages : Marshallese Child/Parent Domestic Concerns : None Threats of Suicide : No Marry Erickson 11/18/2018 20:14 EDT Height and Weight Height Source : Stated Height Entry Format : Grand Height, Inches : 65 Inch(Converted to: 5 ft 5 Inch, 165.10 cm) Clinical Height : 165.1 cm Weight Source : Bed scale Weight Entry Format : Grand Weight, Pounds : 220 lb Clinical Dosing Weight : 100 kg Body Surface Area-(BSA) : 2.14 m2 Body Mass Index : 36.7 kg/m2 (HI) [place] Body Weight : 57 kg Marry Erickson R - 11/18/2018 20:14 EDT Medication List ED Medications Reviewed : Yes Source of Information : Patient Marry Erickson R - 11/18/2018 20:14 EDT Medication List (As Of: 11/18/2018 20:19:18 EDT) Home Meds calcium acetate : calcium [...] Dt/Tm: 09/26/2018 16:55:11 Allergy Profile (As Of: 11/18/2018 20:19:18 EDT) Allergies (Active) No Known Allergies Estimated Onset Date: Unspecified ; Created By: Blanca Chisholm RN; Reaction Status: Active ; Category: Drug ; Substance: No Known Allergies ; Type: Allergy ; Updated By: Blanca Chisholm RN; Reviewed Date: 09/07/2018 15:26 EST Pain Pain Assessment Grid Location : Tooth/Teeth Marry Erickson 11/18/2018 20:14 EDT Intensity : 8 Marry Erickson 11/18/2018 20:14 EDT documented in this encounter Plan of Treatment Not on file documented as of this encounter Visit Diagnoses Not on filedocumented in this encounter
--- OUTSIDE RECORDS SUMMARY | 2024-05-30 08:32 | XMS_ITS | Encounter Summary ---
Author Organization [facility] Address [address] [place] [address] Care Team Providers Care Urban Planner Name Role Phone Unavailable Primary Care Provider Unavailabl e Encounter Details Date Type Department Care Team (Late st Contact Info) Description 12/24/2018 Transcribed Document [facility] [place] [facility] [place] [address] ProviderLaury MD [address] [place] [address] Social History Tobacco Use Types Packs/Day [...] Conversion Note - Laury ProviderMD - 12/24/2018 7:05 PM CDT BBK Triage ED Entered On: 12/24/2018 15:07 EDT Performed On: 12/24/2018 15:05 EDT by Maddi Tomlin Triage Assessment Triage Date/Time : 12/24/2018 15:05 EDT Maddi Tomlin - 12/24/2018 15:05 EDT DCP GENERIC CODE Tracking Acuity : 4 - Non-urgent BBK Tracking Group : BBK [place] Maddi Tomlin - 12/24/2018 15:05 EDT ED Visit Reason : Rash Primary Care Provider : Rema Ferreira, Set Up Worker Accompanied By : Family/Spouse/SO Arrival Mode : Ambulatory Chief Complaint : Pt seen by MD on and dx with fungal infection. Pt was given Lotrimin cream and instructed to come to ED if any new areas developed. 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 Hx : No Heart Attack : No [...] No, Patient seeind cancer doc on 12/12/17 Maddi Tomlin - 12/24/2018 15:05 EDT Temp : 98.6 Deg F(Converted to: 37.0 Deg C) Temp Route : Oral/Mouth Systolic Blood Pressure : 179 mmHg (HI) Diastolic Blood Pressure : 89 mmHg Pulse Rate : 101 bpm (HI) Respiratory Rate : 20 Breaths/Min Oxygen Saturation : 97 % Oxygen Therapy Resp Assess : Room air Pain Symptoms : No Height/Weight Med Rec : Open Medication Profile, Med Rec : Open Allergy Profile, Med Rec : Open Maddi Tomlin - 12/24/2018 15:05 EDT Height and Weight Height Source : Stated Height Entry Format : [place] Height, Inches : 65 Inch(Converted to: 5 ft 5 Inch, 165.10 cm) Clinical Height : 165.1 cm Weight Source : Bed scale Weight Entry Format : [place] Weight, Pounds : 221 lb Clinical Dosing Weight : 100.45 kg Body Surface Area-(BSA) : 2.15 m2 Body Mass Index : 36.9 kg/m2 (HI) [place] Body Weight : 57 kg Maddi Tomlin - 12/24/2018 15:05 EDT Medication List ED Medications Reviewed : Yes Source of Information : Patient Maddi Tomlin - 12/24/2018 15:05 EDT Medication List (As Of: 12/24/2018 15:07:52 EDT) Home Meds calcium acetate : calcium [...] Dt/Tm: 09/26/2018 16:55:11 Allergy Profile (As Of: 12/24/2018 15:07:52 EDT) Allergies (Active) No Known Allergies Estimated Onset Date: Unspecified ; Created By: Blanca Chisholm RN; Reaction Status: Active ; Category: Drug ; Substance: No Known Allergies ; Type: Allergy ; Updated By: Blanca Chisholm RN; Reviewed Date: 12/24/2018 15:06 EDT Electronically signed by Zuleyka Byrd Conversion Telegraphic Typewriter Mechanic Cerner at 10/19/2022 11:23 AM CDT documented in this encounter Plan of Treatment Not on file documented as of this encounter Visit Diagnoses Not on filedocumented in this encounter
--- OUTSIDE RECORDS SUMMARY | 2024-05-30 08:32 | XMS_ITS | Encounter Summary ---
Author Organization [employer] [facility] [employer] Address [address] [place] [address] Care Team Providers Care Emergency Medical Technician Basic Name Role Phone Unavailable Primary Care Provider Unavailabl e Encounter Details Date Type Department Care Team (Late st Contact Info) Description 09/26/2018 Transcribed Document [facility] [place] [address] [place] [address] ProviderLaury MD [address] [place] [id number] Social History Tobacco Use Types Packs/Day Years [...] Laury ProviderMD - 09/26/2018 10:56 PM CDT [facility] ADDRESS [place], [place] [phone] Name:Crystal Archer Visit Date:09/26/2018 16:44:00 Emergency Department Care Providers: Physician: INDIO PEREA Physician: Our doctors and staff appreciate your choice of [facility] for your emergency medical care. Read these instructions carefully. Please call us if you have any questions about your medical problem. [facility] Emergency Department [phone] [facility] Emergency Department [phone] [facility] Emergency Department [phone] Patient Education Materials Crystal Archersil has been [...] 07/04/2006 Document Revised: 12/09/2016 Document Reviewed: 03/04/2014 ElseEntelos Interactive Patient Education ? 2017 [employer]. FOLLOW UP CARE Most conditions that [...] x-ray department to pick them up o [facility] # [phone] o [facility] # [phone] o [facility] # [phone] ?? If you had cultures done and [...] quit. o National Network of Tobacco Cessation [id number] o [place] Association o [place] Heart Association [phone] o Sai/Manuel Mccray [phone] FINANCIAL INFORMATION ?? [facility] provides financial counseling to anyone who requests our services. ?? Emergency Physicians are independently contracted to provide your care. You will receive a bill for the care provided to you by the Physician and/or the Physician Action Finisher. This will be a separate bill from [...] as recommended Patient Signature / or Patient Molding Engineer Provider Signature Date Date/Time 09/26/2018 18:56 [facility] Villanueva Home Medications Name Crystal Archer Allergy Info: No Known Allergies Allergy Comment: HOME MEDICATIONS Medication Dose Route Frequency Reason For Taking Next Dose Admelog 100 units/mL injectable solution amLODIPine 2.5 mg oral tablet amLODIPine 2.5 mg oral tablet aspirin 81 mg oral tablet atorvastatin calcium acetate carvedilol 3.125 mg oral tablet fenofibrate gabapentin 300 mg oral capsule Lasix 40 mg oral tablet loratadine 10 mg oral capsule [place] 5 mg-325 mg oral tablet sodium bicarbonate Home Medications Comment: YOU SHOULD [...]
--- OUTSIDE RECORDS SUMMARY | 2024-05-30 08:32 | XMS_ITS | Encounter Summary ---
Author Organization [employer] [facility] [employer] Address [address] [place] [address] Care Team Providers Care Machine Oiler Name Role Phone Unavailable Primary Care Provider Unavailabl e Encounter Details Date Type Department Care Team (Late st Contact Info) Description 11/19/2018 Transcribed Document [facility] [place] [address] [place] [address] ProviderLaury MD [address] [place] [address] Social History Tobacco Use Types Packs/Day [...] Laury ProviderMD - 11/19/2018 1:52 AM CDT [facility] Emergency Department Depart Summary PERSON INFORMATION Name Crystal Archer Age 28 Years 1990 Sex Female Language PCP Marital Status Phone [phone] Visit Id Visit Reason Specialty Enc Type Emergency Med Service Referred by Track Group [facility] [place] Discharge Tracking Id [id number] Checkout 11/18/2018 21:52:54 Checkin 11/18/2018 20:06:00 Acuity 4 - Non-urgent [facility] Dispo Type Arrival 11/18/2018 20:06:00 Reg Status LOS 000 01:46 Address: [address] [place], [place] [address] [place] [address] POWERFORMS PHYSICIAN NOTES VITALS INFORMATION Vital Sign Triage Temp 99.0 Temp Route Oral/Mouth Pulse Rate 107 Respiratory Rate 18 Blood Pressure 147/ 87 LOCATION INFORMATION Arrival Nurse Unit Room Bed 11/18/2018 20:06:00 [facility] ED Waitroom ([facility]) 11/18/2018 20:10:40 [facility] ED 8 11/18/2018 21:33:06 [facility] ED STA-3 11/18/2018 21:52:54 [facility] ED Checkout ([facility]) MEDICAL INFORMATION Allergy Info: No Known Allergies PATIENT EDUCATION INFORMATION Instructions: Urinary Tract Infection, Adult, Feub-ah-Clnb; Otitis Media, Adult, Ztmx-xz-Hnlu Follow up: With: Address: When: Follow up with primary care provider Within 1-2 days With: Address: When: Return to Emergency Department Within As needed DIAGNOSIS documented in this encounter Plan of Treatment Not on file documented as of this encounter Visit Diagnoses Not on filedocumented in this encounter
--- OUTSIDE RECORDS SUMMARY | 2024-05-30 08:32 | XMS_ITS | Encounter Summary ---
Author Organization [employer] Address [address] [place] [address] Care Team Providers Care Oil Well Services Superintendent Name Role Phone Unavailable Primary Care Provider Unavailabl e Encounter Details Date Type Department Care Team (Late st Contact Info) Description 09/07/[address] [facility] [place] [address] [place] [address] ProviderLaury MD [address] [place] [address] Social History Tobacco Use Types Packs/Day [...] - Laury ProviderMD - 09/07/2018 9:31 PM PROBATION WORKER [facility] ADDRESS [place], [place] [phone] Name:Crystal Archer Visit Date:09/07/2018 15:20:00 Emergency Department Care Providers: Physician: MEGHA MAN Physician: Our doctors and staff appreciate your choice of [facility] for your emergency medical care. Read these instructions carefully. Please call us if you have any questions about your medical problem. [facility] Emergency Department [phone] [facility] Emergency Department [phone] [facility] Emergency Department [phone] Patient Education Materials Gianni Crystal Jones has [...] 12/15/2006 Document Revised: 03/06/2017 Document Reviewed: 12/11/2014 LED Engin Interactive Patient Education ? 2017 [employer] Inc. FOLLOW UP CARE Most conditions that [...] department to pick them up o [facility] # [phone] [facility] # [phone] o [facility] # [phone] ?? If you had cultures done and [...] quit. o National Network of Tobacco Cessation [id number]-NOW o [place] Lung Association o [place] Heart Association [phone] o Sai/Manuel Mccray [phone] FINANCIAL INFORMATION ?? [facility] provides financial counseling to anyone who requests our services. ?? Emergency Physicians are independently contracted to provide your care. You will receive a bill for the care provided to you by the Physician and/or the Physician License Registration Examiner. This will be a separate bill from [...] to the Emergency Department. Patient Visit Summary SurendraCrystal boston Garthsil has been given the following list of [...] as recommended Patient Signature / or Patient Player Development Executive Provider Signature Date Date/Time 09/07/2018 16:31 Saint Mansoor Gilbertea Home Medications Name Crystal [...] oral tablet loratadine 10 mg oral capsule [place] 5 mg-325 mg oral tablet sodium bicarbonate Home Medications Comment: YOU SHOULD NO LONGER TAKE THESE MEDICATIONS Medication Dose Frequency amLODIPine-atorvastatin Comment: This med list is based on information you provided. Please take this form with you to check with your doctor(s) the appropriateness and dosages of all your medications. Gianni Ortez Holly Nashae, have received a copy of discharge home medications and acknowledged understanding of these instructions. I hereby certify that I have received the above instructions and that all of my concerns/questions regarding this visit have been adequately answered. Patient Signature Date Witnessed and/or instructed by (signature) Date Electronically signed by Zuleyka Byrd Conversion Applications Engineer Manufacturing Keysha at 10/19/2022 11:22 AM CDT documented in this encounter Plan of Treatment Not on file documented as of this encounter Visit Diagnoses Not on filedocumented in this encounter
--- OUTSIDE RECORDS SUMMARY | 2024-05-30 08:32 | XMS_ITS | Encounter Summary ---
Author Organization [employer] Address [address] [place] [address] Care Team Providers Care Container Repairer Name Role Phone Unavailable Primary Care Provider Unavailabl e Encounter Details Date Type Department Care Team (Late st Contact Info) Description 09/26/2018 Historic Encounter [address] [phone] ProviderJen Historical Social History Tobacco [...] Procedure Name Priority Date/Time Associated Diagnosis Comments CBC W/ AUTO DIFF Routine 09/26/2018 5:27 PM EDT BASIC METABOLIC PANEL Routine 09/26/2018 5:27 PM EDT URINALYSIS, REFLEX MICROSCOPIC AND CULTURE IF INDICATED Routine 09/26/2018 4:49 PM EDT HCG URINE POC Routine 09/26/2018 4:49 PM EDT documented in this encounter Results * (ABNORMAL) CBC with automated diff (09/26/2018 5:27 PM EDT) MCHC 32.7 32.2 - 35.5 [facility] % Monos 5.6 4.7 - 12.5 % [facility] Hemoglobin 10.1(L) 11.2 - 15.7 [facility] RDW 12.2 11.7 - 14.4 % [facility] % Eos 3.9 0.7 - 5.8 % [facility] Hematocrit 30.9(L) 34.1 - 44.9 % [facility] Platelets 212 182 - 369 [facility] % Baso 0.2 0.1 - 1.2 % [facility] MCV 87 79 - 95 [facility] % Neutros 59.5 34.0 - 71.1 [facility] Immature Granulocytes-Re lative 0.3 0.0 - 0.5 % [facility] WBC 10.4(H) 4.0 - 10.0 [facility] MCH 28.5 25.6 - 32.2 pg [facility] % Lymphs 30.5 19.3 - 51.7 % [facility] RBC 3.54(L) 3.93 - 5.22 [facility] 09/26/2018 5:27 PM EDT us [facility] Historical Provider LAB BLOOD ORDERABLES Fi nal Result [facility] [address] [place], [place] [address] [phone] * (ABNORMAL) Basic Metabolic Panel (09/26/2018 5:27 PM EDT) Calcium 8.4(L) 8.5 - 10.1 mg/dL [facility] Sodium 136 136 - 145 mMole/Lite r [facility] Potassium 4.0 3.5 - 5.1 mMole/Lite r [facility] Glucose 172(H) 74 - 99 [facility] Chloride 100 98 - 107 mMole/Lite r [facility] Creatinine 3.56(H) 0.55 - 1.02 mg/dL [facility] BUN 48(H) 7 - 18 mg/dL [facility] CO2 26 21 - 32 mMole/Lite r [facility] eGFR Non (mL/min/1.73m2) 15.1(L) >60 [facility] 09/26/2018 5:27 PM EDT [facility] Provider LAB BLOOD ORDERABLES Fi nal Result Performing Organization Address City/[facility]/ZIP Co de Phone Number [facility] [address] [phone] * HCG Urine POC (09/26/2018 4:49 PM EDT) Specific [place], UA 1.010 1.005 - 1.030 [facility] POC, URINE HCG NEGATIVE [facility] 09/26/2018 4:49 PM EDT Result [facility] Provider POINT OF CARE TEST ORDE RABLES Final Result Performing Organization Address City/[facility]/ZIP Co de Phone Number [facility] [address] [phone] * (ABNORMAL) Urinalysis, Reflex Microscopic and Culture If Indicated (09/26/2018 4:49 PM EDT) Blood, UA 1+ NEGATIVE [facility] Leukocytes, UA NEGATIVE NEGATIVE [facility] Mucus TRACE NONE, TRACE [facility] Glucose, UA TRACE NEGATIVE [facility] pH, UA 6.5 6.0 - 7.5 [facility] SQUAMOUS EPITHELIAL 0-2 NONE, 0-2 [facility] Bilirubin, UA NEGATIVE NEGATIVE [facility] Urinalysis, Other NONE SEEN /HPF [facility] Protein, UA 2+(A) NEGATIVE [facility] Crystals, Urine NONE SEEN NONE SEEN [facility] WBC, UA 0-5 NONE, 0-5 [facility] Urine Casts NONE SEEN NONE SEEN [facility] Ketones, UA NEGATIVE NEGATIVE [facility] Urobilinogen, UA 0.2 0.2 - 1.0 [facility] Bacteria, UA 1+(A) NONE, TRACE [facility] Color, UA LIGHT YELLOW YEL, L. YEL [facility] Specific [place], UA 1.010 1.005 - 1.030 [facility] RBC, UA 5-10(A) NONE, 0-2 [facility] Nitrite, UA NEGATIVE NEGATIVE [facility] Amorphous Crystals TRACE NONE, TRACE [facility] Clarity, UA CLEAR CLEAR, HAZY [facility] 09/26/2018 4:49 PM EDT [facility] Historical Provider URINE ORDERABLES Final Result [facility] [address] [phone] documented in this encounter Visit Diagnoses Not on filedocumented in this encounter
--- OUTSIDE RECORDS SUMMARY | 2024-05-30 08:32 | XMS_ITS | Encounter Summary ---
Author Organization [employer] Address [address] [place] [address] Care Team Providers Care Conservation Enforcement Officer Name Role Phone Unavailable Primary Care Provider Unavailabl e Encounter Details Date Type Department Care Team (Late st Contact Info) Description 12/24/2018 Transcribed Document [facility] [place] [address] [place] [address] ProviderLaury MD [address] [place] [address] Social History Tobacco Use Types Packs/Day [...] Laury ProviderMD - 12/24/2018 7:19 PM CDT [facility] ADDRESS [place], [place] [phone] Name:Crystal Archer Visit Date:12/24/2018 15:01:00 Emergency Department Care Providers: Physician: MEGHA MAN Physician: Our doctors and staff appreciate your choice of [facility] for your emergency medical care. Read these instructions carefully. Please call us if you have any questions about your medical problem. [facility] Emergency Department [phone] [facility] Emergency Department [phone] [facility] Emergency Department [phone] Patient Education Materials Gianni Crystal Jones has [...] Medicines may be prescribed or be available czug-sit-fydkjrk. The medicines may be: ??? Taken by mouth (orally). ??? Applied as a cream. Follow these instructions at home: ??? Take or apply yayr-ijh-iexgree and prescription medicines only as told by [...] 03/21/2012 Document Revised: 02/27/2017 Document Reviewed: 01/05/2016 menuvox Interactive Patient Education ? 2019 [employer]book. FOLLOW UP CARE Most conditions that require [...] the x-ray department to pick them up [facility] # [phone] [facility] # [phone] o [facility] # [phone] ?? If you had cultures done and [...] quit. o National Network of Tobacco Cessation [id number] o [place] [employer] o [employer] [place] [employer] [phone] o Sai/Manuel Mccray [phone] FINANCIAL INFORMATION ?? [facility] provides financial counseling to anyone who requests our services. ?? Emergency Physicians are independently contracted to provide your care. You will receive a bill for the care provided to you by the Physician and/or the Physician Terrazzo Layer Helper. This will be a separate bill from [...] as recommended Patient Signature / or Patient Regulatory Compliance Officer Provider Signature Date Electronically signed by Rochelle, [facility] Conversion Pipelines Supervisor Cerner at 10/19/2022 11:23 AM CDT documented in this encounter Plan of Treatment Not on file documented as of this encounter Visit Diagnoses Not on filedocumented in this encounter
--- OUTSIDE RECORDS SUMMARY | 2024-05-30 08:32 | XMS_ITS | Encounter Summary ---
Author Organization [facility] Address [address] [place] [address] Care Team Providers Care Emergency Medical Technician Basic Name Role Phone Maria A Soria STRATEGIC PLANNING SPECIALIST Primary Care Provider [phone] Reason for Visit * Reason Comments Follow-up Encounter Details Date Type Department Care Team (Late st Contact Info) Description 04/25/2023 11:30 AM EDT Office Visit [facility] [address] [place] [phone] Maria A Soria, STRATEGIC PLANNING SPECIALIST [address] [place] [address] Type 1 diabetes mellitus with hyperglycemia (Primary Dx); Recurrent UTI; Essential hypertension; ESRD (end stage renal disease) on dialysis; Diarrhea, unspecified type; Chronic kidney disease-mineral and bone disorder; Persistent depressive disorder Social History Tobacco Use [...] Mass Index 26.37 04/25/2023 10:35 AM EDT documented in this encounter Progress Notes * Maria A Soria, STRATEGIC PLANNING SPECIALIST - 04/25/2023 5:04 PM EDTAssociated Problem(s): Type 1 diabetes mellitus with hyperglycemia Patient followed by [facility], last A1c 5.3%. * Maria A Soria APRN - 04/25/2023 5:04 PM EDTAssociated Problem(s): Essential hypertension Patient with significant hypertension while taking Effexor, now back down to baseline level, 110/74in office today with cessation of Effexor * Maria A Soria APRN - 04/25/2023 5:03 PM EDTAssociated Problem(s): ESRD (end stage renal disease) on dialysis Continues 6 night weekly nocturnal peritoneal dialysis, followed by Dr. Stevens at [facility]. Working towards renal transplant with [facility].. * Maria A Soria APRN - 04/25/2023 5:03 PM EDTAssociated Problem(s): Depression Presents today for follow-up after initiation of venlafaxine 4 weeks ago. Patient with longstandinghistory of depression due to an unfortunate childhood with an alcoholic/drug addicted mother. Patient has history of drug abuse herself. She has not been under the care of any healthcare providers inrecent years. I have encouraged her to pursue [...] once daily. Patient notes the medication made herblood pressure astronomically high, systolic of 206, diastolic of 107. She reports she saw her family protection specialist who wanted to increase her blood pressure medications but she refused stating she knew she stopped the medications her blood pressure would return to normal. She is now off both BuSpar and abner lafaxine with blood pressure 110/74 in office today. Patient feels her mood is stable currently without medications due to some decrease stressors in the home. Her [id number] with whom she help edwar from Blandford's disease, decreasing some of her personal obligations. * Maria A Soria APRN - 04/25/2023 11:30 AM EDT Images from the original note were not included. Office Note Name: Crystal Archer : 1990 Chief Complaint Follow-up Subjective History of Present Illness: Crystal Archer is a 32 y.o. female who presents today for follow-up after initiation of venlafaxine 4 weeks ago. Patient with longstanding history of depression due to an unfortunate childhood with an alcoholic/drug addicted mother. Patient has history of drug abuse herself. She has not been underthe care of any healthcare providers in recent [...] of 107. She reports she saw her family protection specialist who wanted to increase her blood pressure medications but she refused stating she knew she stopped the medications her blood pressure would return to normal. She is now off both BuSpar and venlafaxine with blood pressure 110/74 in office today. Patient feels her mood is stable currently without medications due to some decrease stressors in the home.Her [id number] with whom she help edwar from Blandford's disease, decreasing some of her personal obligations. She has upcoming appointment with infectious disease for recurrent UTI. She has no new complaints or concerns today. Review of Systems Constitutional: Negative for activity change and fatigue. Cardiovascular: Negative for chest pain, palpitations and leg swelling. Gastrointestinal: Negative for constipation, diarrhea, nausea and vomiting. Genitourinary: Negative for difficulty urinating, frequency and hematuria. Psychiatric/Behavioral: Positive for stress. Negative for agitation, self- injury, sleep disturbance, suicidal ideas and depressed mood. The patient is not nervous/anxious. Objective Past 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: Diagnosis Date Allergic Anxiety Arthritis Chronic constipation Depression Diabetes mellitus Excessive thirst H/O mammogram 2014 Headache Hot skin Hyperlipidemia Hypertension Injury of back Leg cramps Pap smear for cervical cancer screening 11/08/2015 Renal disorder Sinusitis Urinary tract infection Past Surgical History: Procedure Laterality Date SECTION 10/17/2012 SECTION GASTRIC SLEEVE LAPAROSCOPIC INDUCED 2006 [facility] No family history on file. Vital Signs BP 110/74 (BP Location: Left arm, Patient Position: Sitting, Cuff Size: Adult) Pulse 70 Temp 98.2 ??F (36.8 ??C) (Temporal) Resp 18 Ht 162.6 cm (64 ) Wt 69.7 kg (153 lb 9.6 oz) SpO2 98% BMI 26.37 kg/m?? Estimated body mass index is 26.37 kg/m?? as calculated from the following: Height as of this encounter: 162.6 cm (64 ). Weight as of this encounter: 69.7 kg (153 lb 9.6 oz). Physical Exam Vitals reviewed. Constitutional: Appearance: Normal appearance. HENT: Head: Normocephalic and atraumatic. Right Ear: Tympanic membrane, ear canal and external ear normal. Left Ear: Tympanic membrane, ear canal and external ear normal. Nose: Nose normal. Mouth/Throat: Pharynx: Oropharynx is clear. Eyes: Conjunctiva/sclera: Conjunctivae normal. Cardiovascular: Rate and Rhythm: Normal rate and regular rhythm. Pulses: Normal pulses. Heart sounds: Normal heart sounds. Pulmonary: Effort: Pulmonary effort is normal. Breath sounds: Normal breath sounds. Abdominal: General: Bowel sounds are normal. Palpations: Abdomen is soft. Musculoskeletal: General: Normal range of motion. Cervical back: Neck supple. Skin: General: Skin is warm and dry. Neurological: Mental Status: She is alert and oriented to person, place, and time. POCT Results (if applicable): Results for orders placed or performed in visit on 03/15/23 Urine Culture - , Urine Release to dennis Result Value Ref Range Urine Culture Final report (A) Result 1 Comment (A) TSH Rfx On Abnormal To Free T4 Specimen: Arm, Right; Blood Blood Release to dennis Result Value Ref Range TSH 2.880 0.450 - 4.500 uIU/mL Comprehensive Metabolic Panel Specimen: Arm, Right; Blood Blood Release to dennis Result Value Ref Range Glucose 84 70 - 99 mg/dL BUN 55 (H) 6 - 20 mg/dL Creatinine 6.94 (H) 0.57 - 1.00 mg/dL EGFR Result 7 (L) >59 mL/min/1.73 BUN/Creatinine Ratio 8 (L) 9 - 23 Sodium 141 134 - 144 mmol/L Potassium 5.7 (H) 3.5 - 5.2 mmol/L Chloride 108 (H) 96 - 106 mmol/L Total CO2 18 (L) 20 - 29 mmol/L Calcium 8.2 (L) 8.7 - 10.2 mg/dL Total Protein 5.8 (L) 6.0 - 8.5 g/dL Albumin 3.9 3.9 - 4.9 g/dL Globulin 1.9 1.5 - 4.5 g/dL A/G Ratio 2.1 1.2 - 2.2 Total Bilirubin <0.2 0.0 - 1.2 mg/dL Alkaline Phosphatase 74 44 - 121 IU/L AST (SGOT) 9 0 - 40 IU/L ALT (SGPT) 9 0 - 32 IU/L Lipid Panel Specimen: Arm, Right; Blood Blood Release to dennis Result Value Ref Range Total Cholesterol 134 100 - 199 mg/dL Triglycerides 116 0 - 149 mg/dL HDL Cholesterol 39 (L) >39 mg/dL VLDL Cholesterol Christian 21 5 - 40 mg/dL LDL Chol Calc (NIH) 74 0 - 99 mg/dL Hemoglobin A1c Specimen: Arm, Right; Blood Blood Release to dennis Result Value Ref Range Hemoglobin A1C 5.9 (H) 4.8 - 5.6 % CBC & Differential Specimen: Arm, Right; Blood Blood Release to dennis Result Value Ref Range WBC 4.7 3.4 - 10.8 x10E3/uL RBC 3.47 (L) 3.77 - 5.28 x10E6/uL Hemoglobin 10.8 (L) 11.1 - 15.9 g/dL Hematocrit 32.7 (L) 34.0 - 46.6 % MCV 94 79 - 97 fL MCH 31.1 26.6 - 33.0 pg MCHC 33.0 31.5 - 35.7 g/dL RDW 12.6 11.7 - 15.4 % Platelets 137 (L) 150 - 450 x10E3/uL Neutrophil Rel % 60 Not Estab. % Lymphocyte Rel % 30 Not Estab. % Monocyte Rel % 8 Not Estab. % Eosinophil Rel % 2 Not Estab. % Basophil Rel % 0 Not Estab. % Neutrophils Absolute 2.8 1.4 - 7.0 x10E3/uL Lymphocytes Absolute 1.4 0.7 - 3.1 x10E3/uL Monocytes Absolute 0.4 0.1 - 0.9 x10E3/uL Eosinophils Absolute 0.1 0.0 - 0.4 x10E3/uL Basophils Absolute 0.0 0.0 - 0.2 x10E3/uL Immature Granulocyte Rel % 0 Not Estab. % Immature Grans Absolute 0.0 0.0 - 0.1 x10E3/uL Assessment and Plan Diagnoses and all orders for this visit: 1. Type 1 diabetes mellitus with hyperglycemia (Primary) Assessment & Plan: Patient followed by endocrinology, last A1c 5.3%. 2. Recurrent UTI Assessment & Plan: Has appt with ID on May 05 3. Essential hypertension Assessment & Plan: Patient with significant hypertension while taking Effexor, now back down to baseline level, 110/74in office today with cessation of Effexor 4. ESRD (end stage renal disease) on dialysis Assessment & Plan: Continues 6 night weekly nocturnal peritoneal dialysis, followed by Dr. Stevens at [facility]. Working towards renal transplant with [facility].. 5. Diarrhea, unspecified type Assessment & Plan: Diarrhea resolved. 6. Chronic kidney disease-mineral and bone disorder Assessment & Plan: Recent change in calcitriol. 7. Persistent depressive disorder Assessment & Plan: Presents today for follow-up after initiation of venlafaxine 4 weeks ago. Patient with longstandinghistory of depression due to an unfortunate childhood with an alcoholic/drug addicted mother. Patient has history of drug abuse herself. She has not been under the care of any healthcare providers inrecent years. I have encouraged her to pursue [...] once daily. Patient notes the medication made herblood pressure astronomically high, systolic of 206, diastolic of 107. She reports she saw her family protection specialist who wanted to increase her blood pressure medications but she refused stating she knew she stopped the medications her blood pressure would return to normal. She is now off both BuSpar and abner lafaxine with blood pressure 110/74 in office today. Patient feels her mood is stable currently without medications due to some decrease stressors in the home. Her [id number] with whom she help caregive from Blandford's disease, decreasing some of her personal obligations. Follow Up No follow-ups on file. Maria A Soria APRN * Maria A Soria APRN - 04/25/2023 11:08 AM EDTAssociated Problem(s): Diarrhea Diarrhea resolved. * Maria A Soria APRN - 04/25/2023 11:07 AM EDTAssociated Problem(s): Recurrent UTI Has appt with ID on May 05 * Maria A Soria APRN - 04/25/2023 11:07 AM EDTAssociated Problem(s): Chronic kidney disease-mineral and bone disorder Recent change in calcitriol. documented in this encounter Plan of Treatment Not on file documented as of this encounter Visit Diagnoses Diagnosis Type 1 diabetes mellitus with hyperglycemia- Primary Recurrent UTI Urinary tract infection, site not specified Essential hypertension Unspecified essential hypertension ESRD (end stage renal disease) on dialysis End stage renal disease Diarrhea, unspecified type Chronic kidney disease-mineral and bone disorder Persistent depressive disorder documented in this encounter Care Teams Emergency Medical Technician Basic Relationship Specialty Start Date End Date Maria A Soria APRN [address] [place] [phone] PCP - General Family Medicine 02/15/23 documented as of this encounter
--- OUTSIDE RECORDS SUMMARY | 2024-05-30 08:32 | XMS_ITS | Encounter Summary ---
Author Organization [employer] [facility] [employer] Address [address] [place] [address] Care Team Providers Care Production Controller Name Role Phone Unavailable Primary Care Provider Unavailabl e Encounter Details Date Type Department Care Team (Late st Contact Info) Description 08/03/2018 Historic Encounter [facility] [address] [place] [address] Alan Cline DO [address] [facility] Dept. [place] [address] Social History Tobacco Use Types Packs/Day Years [...] Procedure Name Priority Date/Time Associated Diagnosis Comments URINALYSIS, REFLEX MICROSCOPIC AND CULTURE IF INDICATED Routine 08/03/2018 1:56 PM EST HCG URINE POC Routine 08/03/2018 1:56 PM EST documented in this encounter Results * (ABNORMAL) Urinalysis, Reflex Microscopic and Culture If Indicated (08/03/2018 1:56 PM EST) Urinalysis, Other NONE SEEN /HPF [facility] Crystals, Urine NONE SEEN NONE SEEN [facility] Ketones, UA NEGATIVE NEGATIVE [facility] Urobilinogen, UA 0.2 0.2 - 1.0 [facility] Color, UA LIGHT YELLOW YEL, L. YEL [facility] Urine Casts NONE SEEN NONE SEEN [facility] RBC, UA 0-2 NONE, 0-2 [facility] Specific [place], UA 1.020 1.005 - 1.030 [facility] Nitrite, UA NEGATIVE NEGATIVE [facility] SQUAMOUS EPITHELIAL 0-2 NONE, 0-2 [facility] Clarity, UA CLEAR CLEAR, HAZY [facility] Amorphous Crystals TRACE NONE, TRACE [facility] Blood, UA TRACE-LYSED NEGATIVE [facility] Leukocytes, UA NEGATIVE NEGATIVE [facility] Bacteria, UA TRACE NONE, TRACE [facility] Glucose, UA TRACE NEGATIVE [facility] pH, UA 7.0 6.0 - 7.5 [facility] WBC, UA 0-5 NONE, 0-5 [facility] Bilirubin, UA NEGATIVE NEGATIVE [facility] Mucus 1+(A) NONE, TRACE [facility] Protein, UA 2+(A) NEGATIVE [facility] 08/03/2018 1:56 PM EST Alan Cline DO URINE ORDERABLES Final Result [facility] [address] [phone] * HCG Urine POC (08/03/2018 1:56 PM EST) POC, URINE HCG NEGATIVE [facility] Specific [place], UA 1.020 1.005 - 1.030 [facility] 08/03/2018 1:56 PM EST Alan Cline DO POINT OF CARE TEST ORDERABLES Final Result Performing Organization Address City/State/[facility] Co de Phone Number [facility] [address] [phone] documented in this encounter Visit Diagnoses Not on filedocumented in this encounter
--- OUTSIDE RECORDS SUMMARY | 2024-05-30 08:32 | XMS_ITS | Encounter Summary ---
Author Organization [facility] Address [address] [place] [address] Care Team Providers Care Dean Of [employer] Name Role Phone Unavailable Primary Care Provider Unavailabl e Encounter Details Date Type Department Care Team (Late st Contact Info) Description 10/31/2018 Transcribed Document [facility] Family Medicine [address] [place] [address] ProviderLaury MD [address] [place] [id number] Social History Tobacco Use Types Packs/Day [...] Conversion Note - Laury ProviderMD - 10/31/2018 12:29 AM CDT [facility] Triage ED Entered On: 10/30/2018 20:34 EDT Performed On: 10/30/2018 20:29 EDT by Mimi Aggarwal Triage Assessment Triage Date/Time : 10/30/2018 20:29 EDT Mimi Aggarwal - 10/30/2018 20:29 EDT DCP GENERIC CODE Tracking Acuity : 4 - Non-urgent [facility]K Tracking Group : [facility] Mimi Soriano - 10/30/2018 20:29 EDT ED Visit Reason : Mouth Complaint Primary Care Provider : Rema Ferreira, Casting Machine Set Up Operator Accompanied By : Family/Spouse/SO Arrival Mode : Ambulatory Chief Complaint : pt reports that she got upper right and lower right wisdom teeth romoved today at [address] Bonita Boswell. pt reports severe pain since 3:30 pm without relief with tylenol #3. Health History Reviewed : Yes Jasen summer10/30/2018 20:29 EDT Health History ED Grid Alcohol Use : No Caffeine Use : Yes Substance Abuse : No Tobacco Use : Yes, 1ppd Asthma/COPD : No Cancer : No CVA/TIA : No Mental Illness : No Dementia : No Diabetes : Yes, insulin pump 2014 General Cardiac : No GI 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 : No Hot Dip Galvanizer Hx : No Heart Attack : No [...] History : No Pathway Planning : No Jasen summer10/30/2018 20:29 EDT Temp : 99 Deg F(Converted to: 37.2 Deg C) Temp Route : Oral/Mouth Systolic Blood Pressure : 169 mmHg (HI) Diastolic Blood Pressure : 99 mmHg (HI) Pulse Rate : 92 bpm Respiratory Rate : 22 Breaths/Min (HI) Oxygen Saturation : 98 % Oxygen Therapy Resp Assess : Room air Pain Symptoms : Yes LMP date : 10/06/2018 EDT Height/Weight Med Rec : Open Medication Profile, Med Rec : Open Allergy Profile, Med Rec : Open Workman's Compensation : No Preferred Communication Mode : Verbal Languages : Pakistani Child/Parent Domestic Concerns : None Threats of Suicide : No Jasen summer10/30/2018 20:29 EDT Height and Weight Height Source : Stated Height Entry Format : [place] Height, Inches : 65 Inch(Converted to: 5 ft 5 Inch, 165.10 cm) Clinical Height : 165.1 cm Weight Source : Stated Type of Weight Measurement Est : [place] Weight, est lb : 214 lb Estimated Clinical Dosing Weight : 97.27 kg [place] Body Weight : 57 kg Body Surface Area Estimated : 2.11 m2 Body Mass Index Estimated : 35.68 kg/m2 Jasen Summer - 10/30/2018 20:29 EDT Medication List ED Medications Reviewed : Yes Source of Information : Patient Aggarwal, summer10/30/2018 20:29 EDT Medication List (As Of: 10/30/2018 20:34:56 EDT) Home Meds amLODIPine : amLODIPine ; Status: Documented ; Ordered As Mnemonic: amLODIPine 2.5 mg oral tablet ; Simple Display Line: 2.5 mg, 1 Tab, Oral, Daily, 30 Tab, 0 Refill(s) ; Catalog Code: amLODIPine ; Order Dt/Tm: 09/26/2018 16:55:11 aspirin : aspirin ; Status: Documented ; Ordered As Mnemonic: aspirin 81 mg oral tablet ; Simple Display Line: 0 Refill(s) ; Catalog Code: aspirin ; Order Dt/Tm: 08/03/2018 14:11:26 atorvastatin : atorvastatin ; Status: Documented ; Ordered As Mnemonic: atorvastatin ; Simple Display Line: 0 Refill(s) ; Catalog Code: atorvastatin ; Order Dt/Tm: 09/07/2018 15:28:07 calcium acetate : calcium acetate ; Status: Documented ; Ordered As Mnemonic: calcium acetate ; Simple Display Line: 0 Refill(s) ; Catalog Code: calcium acetate ; Order Dt/Tm: 09/07/2018 15:29:19 carvedilol : carvedilol ; Status: Documented ; Ordered As Mnemonic: carvedilol 3.125 mg oral tablet ; Simple Display Line: 0 Refill(s) ; Catalog Code: carvedilol ; Order Dt/Tm: 08/03/2018 14:12:57 fenofibrate : fenofibrate ; Status: Documented ; Ordered As Mnemonic: fenofibrate ; Simple Display Line: 160 mg, Oral, Daily, 0 Refill(s) ; Catalog Code: fenofibrate ; Order Dt/Tm: 08/03/2018 14:11:10 furosemide : furosemide ; Status: Documented ; Ordered As Mnemonic: Lasix 40 mg oral tablet ; Simple Display Line: 0 Refill(s) ; Catalog Code: furosemide ; Order Dt/Tm: 08/03/2018 14:13:11 gabapentin : gabapentin ; Status: Documented ; Ordered As Mnemonic: gabapentin 300 mg oral capsule ; Simple Display Line: 0 Refill(s) ; Catalog Code: gabapentin ; Order Dt/Tm: 08/03/2018 14:11:48 insulin lispro : insulin lispro ; Status: Documented ; Ordered As Mnemonic: Admelog 100 units/mL injectable solution ; Simple Display Line: 0 Refill(s) ; Catalog Code: insulin lispro ; Order Dt/Tm: 08/03/2018 14:12:16 loratadine : loratadine ; Status: Documented ; Ordered As Mnemonic: loratadine 10 mg oral capsule ; Simple Display Line: 0 Refill(s) ; Catalog Code: loratadine ; Order Dt/Tm: 08/03/2018 14:10:52 sodium bicarbonate : sodium bicarbonate ; Status: Documented ; Ordered As Mnemonic: sodium bicarbonate ; Simple Display Line: 0 Refill(s) ; Catalog Code: sodium bicarbonate ; Order Dt/Tm: 08/03/2018 14:16:25 acetaminophen-HYDROcodone : acetaminophen-HYDROcodone ; Status: Processing ; Ordered As Mnemonic: [place] 5 mg-325 mg oral tablet ; Simple Display Line: 0 Refill(s) ; Action Display: Discontinue ; Catalog Code: acetaminophen-HYDROcodone ; Order Dt/Tm: 10/30/2018 20:31:52 amLODIPine : amLODIPine ; Status: Processing ; Ordered As Mnemonic: amLODIPine 2.5 mg oral tablet ; Simple Display Line: 0 Refill(s) ; Action Display: Discontinue ; Catalog Code: amLODIPine ; Order Dt/Tm: 10/30/2018 20:31:59 Allergy Profile (As Of: 10/30/2018 20:34:56 EDT) Allergies (Active) No Known Allergies Estimated Onset Date: Unspecified ; Created By: Blanca Chisholm RN; Reaction Status: Active ; Category: Drug ; Substance: No Known Allergies ; Type: Allergy ; Updated By: Blanca Chisholm RN; Reviewed Date: 09/07/2018 15:26 EST Pain Pain Assessment Grid Location : Oral/Mouth Quality : Aching Intensity : 10 Aggarwal, Summer - 10/30/2018 20:29 EDT Electronically signed by Zuleyka Byrd Conversion Supervisor Water Treatment Plant Cerner at 10/19/2022 11:23 AM CDT documented in this encounter Plan of Treatment Not on file documented as of this encounter Visit Diagnoses Not on filedocumented in this encounter
--- OUTSIDE RECORDS SUMMARY | 2024-05-30 08:32 | XMS_ITS | Encounter Summary ---
Author Organization [employer] Address [address] [place] [address] Care Team Providers Care Agency Owner Name Role Phone Unavailable Primary Care Provider Unavailabl e Encounter Details Date Type Department Care Team (Late st Contact Info) Description 09/07/2018 Transcribed Document [facility] [place] [facility] [address] [place] [address] ProviderLaury MD [address] [place] [address] Social History Tobacco Use Types Packs/Day [...] Conversion Note - Laury ProviderMD - 09/07/2018 8:23 PM EDUCATION DEAN [facility] Triage ED Entered On: 09/07/2018 15:30 EST Performed On: 09/07/2018 15:23 EST by Silvia Cole, Triage Assessment Triage Date/Time : 09/07/2018 15:23 EST Silvia Cole, - 09/07/2018 15:23 EST DCP GENERIC CODE Tracking Acuity : 4 - Non-urgent BBK Tracking Group : [facility] Silvia Kimle, - 09/07/2018 15:23 EST ED Visit Reason : Arm Complaint Primary Care Provider : Jax Hsu Accompanied By : Family/Spouse/SO Arrival Mode : Ambulatory Chief Complaint : Pt states that she had a cast placed on left arm today at 0900 this am. Pt states that it was rubbing her arm raw and causing a sore. Pt called ortho back and told they could not see her today and instructed to come to ED. Pt removed cast her self. 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 : No Heart Attack : No [...] History : No Pathway Planning : No Silvia Cole, - 09/07/2018 15:23 EST Temp : 99.1 Deg F(Converted to: 37.3 Deg C) Temp Route : Oral/Mouth Systolic Blood Pressure : 145 mmHg (HI) Diastolic Blood Pressure : 91 mmHg (HI) Pulse Rate : 61 bpm Respiratory Rate : 20 Breaths/Min Oxygen Saturation : 95 % Oxygen Therapy Resp Assess : Room air Pain Symptoms : Yes Height/Weight Med Rec : Open Medication Profile, Med Rec : Open Allergy Profile, Med Rec : Open Silvia Cole, - 09/07/2018 15:23 EST Height and Weight Height Source : Stated Height Entry Format : Gabriels Height, Inches : 65 Inch(Converted to: 5 ft 5 Inch, 165.10 cm) Clinical Height : 165.1 cm Weight Source : Stated Type of Weight Measurement Est : Gabriels Weight, est lb : 215 lb Estimated Clinical Dosing Weight : 97.73 kg [place] Body Weight : 57 kg Body Surface Area Estimated : 2.12 m2 Body Mass Index Estimated : 35.85 kg/m2 Silvia Cole, - 09/07/2018 15:23 EST Medication List ED Medications Reviewed : Yes Source of Information : Patient Silvia Cole, - 09/07/2018 15:23 EST Medication List (As Of: 09/07/2018 15:30:02 EST) Home Meds Status: Processing ; Ordered As Mnemonic: [place] 5 mg-325 mg oral tablet ; Simple Display Line: 0 Refill(s) ; Action Display: Document ; Catalog Code: acetaminophen-HYDROcodone ; Order Dt/Tm: 09/07/2018 15:27:28 amLODIPine-atorvastatin : amLODIPine-atorvastatin ; Status: Processing ; Ordered As Mnemonic: amLODIPine-atorvastatin ; Simple Display Line: 0 Refill(s) ; Action Display: Discontinue ; Catalog Code: amLODIPine-atorvastatin ; Order Dt/Tm: 09/07/2018 15:28:01 amLODIPine : amLODIPine ; Status: Documented ; Ordered As Mnemonic: amLODIPine 2.5 mg oral tablet ; Simple Display Line: 0 Refill(s) ; Catalog Code: amLODIPine ; Order Dt/Tm: 08/03/2018 14:12:44 aspirin : aspirin ; Status: Documented ; Ordered As Mnemonic: aspirin 81 mg oral tablet ; Simple Display Line: 0 Refill(s) ; Catalog Code: aspirin ; Order Dt/Tm: 08/03/2018 14:11:26 Status: Processing ; Ordered As Mnemonic: atorvastatin ; Simple Display Line: 0 Refill(s) ; Action Display: Document ; Catalog Code: atorvastatin ; Order Dt/Tm: 09/07/2018 15:28:07 Status: Processing ; Ordered As Mnemonic: calcium acetate ; Simple Display Line: 0 Refill(s) ; Action Display: Document ; Catalog Code: calcium acetate ; Order [...] sodium bicarbonate ; Order Dt/Tm: 08/03/2018 14:16:25 Allergy Profile (As Of: 09/07/2018 15:30:02 EST) Allergies (Active) No Known Allergies Estimated Onset Date: Unspecified ; Created By: Blanca Chisholm RN; Reaction Status: Active ; Category: Drug ; Substance: No Known Allergies ; Type: Allergy ; Updated By: Blanca Chisholm RN; Reviewed Date: 09/07/2018 15:26 EST Pain Pain Assessment Grid Location : Arm, left Intensity : 9 Douglas Silviareji Deal, - 09/07/2018 15:23 EST documented in this encounter Plan of Treatment Not on file documented as of this encounter Visit Diagnoses Not on filedocumented in this encounter
--- OUTSIDE RECORDS SUMMARY | 2024-05-30 08:33 | XMS_ITS | Encounter Summary ---
Author Organization [facility] Address [address] [place] [address] Care Team Providers Care [employer] Teller Name Role Phone Jaquan Conley MD Primary Care Provider [phone] Encounter Details Date Type Department Care Team (Late st Contact Info) Description 11/20/2020 3:00 PM EDT Lab [facility] [address] [place] [address] Anemia, unspecified type; CKD stage G5/A3, GFR <15 and albumin creatinine ratio >300 mg/g Social History Tobacco Use Types Packs/Day Years [...] of Binge Drinking Not on file 07/20 Comments No Sex and Gender Information Value Date Recorded Sex Assigned at Not on file Legal Sex Female 3:21 PM EDT Gender Identity Not on file Sexual Orientation Not on file documented as of this encounter Plan of Treatment Not on file documented as of this encounter Procedures Procedure Name Priority Date/Time Associated Diagnosis Comments URINALYSIS, MICROSCOPIC ONLY Routine 11/20/2020 3:06 PM EDT Anemia, unspecified type CKD stage G5/A3, GFR <15 and albumin creatinine ratio >300 mg/g CBC WITH AUTO DIFFERENTIAL Routine 11/20/2020 3:06 PM EDT Anemia, unspecified type CKD stage G5/A3, GFR <15 and albumin creatinine ratio >300 mg/g URINALYSIS AND MICROSCOPIC Routine 11/20/2020 3:06 PM EDT Anemia, unspecified type CKD stage G5/A3, GFR <15 and albumin creatinine ratio >300 mg/g URINALYSIS WITHOUT MICROSCOPIC (NO CULTURE) Routine 11/20/2020 3:06 PM EDT Anemia, unspecified type CKD stage G5/A3, GFR <15 and albumin creatinine ratio >300 mg/g CBC AND DIFFERENTIAL Routine 11/20/2020 3:06 PM EDT Anemia, unspecified type CKD stage G5/A3, GFR <15 and albumin creatinine ratio >300 mg/g RENAL FUNCTION PANEL Routine 11/20/2020 3:06 PM EDT Anemia, unspecified type CKD stage G5/A3, GFR <15 and albumin creatinine ratio >300 mg/g documented in this encounter Results * (ABNORMAL) Urinalysis, Microscopic Only - Urine, Clean Catch (11/20/2020 3:06 PM EDT) RBC, UA 0-2 None Seen, 0-2 /HPF 11/20/2020 11:27 PM EDT [facility] WBC, UA 3-5(A) None Seen, 0-2 /HPF 11/20/2020 11:27 PM EDT [facility] Bacteria, UA 4+(A) None Seen /HPF 11/20/2020 11:27 PM EDT [facility] Squamous Epithelial Cells, UA 7-12(A) None Seen, 0-2 /HPF 11/20/2020 11:27 PM EDT [facility] Hyaline Casts, UA 3-6 None Seen /LPF 11/20/2020 11:27 PM EDT [facility] Methodology Automated Microscopy 11/20/2020 11:27 PM T [facility] Urine Urine specimen collection, clean catch / Unknown Collection / Unknown 11/20/2020 3:06 PM EDT 11/20/2020 3:54 PM EDT John Garcia MD URINE ORDERABLES Final Resul t [facility]
[address] [place] [address], * (ABNORMAL) Urinalysis without microscopic (no culture) - Urine, Clean Catch (11/20/2020 3:06 PM EDT) Color, UA Yellow Yellow, Straw 11/20/2020 11:30 PM EDT [facility] Appearance, UA Clear Clear 11/20/2020 11:30 PM EDT [facility] pH, UA 6.0 5.0 - 8.0 11/20/2020 11:30 PM EDT [facility] Specific [place], UA 1.012 1.005 - 1.030 11/20/2020 11:30 PM EDT [facility] Glucose, UA Negative Negative 11/20/2020 11:30 PM EDT [facility] Ketones, UA Negative Negative 11/20/2020 11:30 PM EDT [facility] Bilirubin, UA Negative Negative 11/20/2020 11:30 PM EDT [facility] Blood, UA Small (1+)(A) Negative 11/20/2020 11:30 PM EDT [facility] Protein, UA >=300 mg/dL (3+)(A) Negative 11/20/2020 11:30 PM EDT [facility] Leuk Esterase, UA Negative Negative 11/20/2020 11:30 PM EDT [facility] Nitrite, UA Negative Negative 11/20/2020 11:30 PM EDT [facility] Urobilinogen, UA 0.2 E.U./dL 0.2 - 1.0 E.U./dL 11/20/2020 11:30 PM EDT [facility] Urine Urine specimen collection, clean catch / Unknown Collection / Unknown 11/20/2020 3:06 PM EDT 11/20/2020 3:54 PM EDT John Garcia MD URINE ORDERABLES Final Resul t [facility]
[address] [place] [address], * (ABNORMAL) CBC Auto Differential (11/20/2020 3:06 PM EDT) WBC 7.86 3.40 - 10.80 10*3/mm3 11/21/2020 12:27 AM [facility] RBC 4.62 3.77 - 5.28 10*6/mm3 11/21/2020 12:27 AM [facility] Hemoglobin 14.2 12.0 - 15.9 g/dL 11/21/2020 12:27 AM [facility] Hematocrit 44.5 34.0 - 46.6 % 11/21/2020 12:27 AM [facility] MCV 96.3 79.0 - 97.0 fL 11/21/2020 12:27 AM [facility] MCH 30.7 26.6 - 33.0 pg 11/21/2020 12:27 AM [facility] MCHC 31.9 31.5 - 35.7 g/dL 11/21/2020 12:27 AM [facility] RDW 11.8(L) 12.3 - 15.4 % 11/21/2020 12:27 AM [facility] RDW-SD 41.9 37.0 - 54.0 fl 11/21/2020 12:27 AM [facility] MPV 13.7(H) 6.0 - 12.0 fL 11/21/2020 12:27 AM [facility] Platelets 215 140 - 450 10*3/mm3 11/21/2020 12:27 AM EDT [facility] Neutrophil % 51.1 42.7 - 76.0 % 11/21/2020 12:27 AM EDT [facility] Lymphocyte % 39.1 19.6 - 45.3 % 11/[facility]2020 [facility] Monocyte % 4.3(L) 5.0 - 12.0 % 11/21/2020 12:27 AM EDT [facility] Eosinophil % 4.8 0.3 - 6.2 % 11/21/2020 12:27 AM T [facility] Basophil % 0.4 0.0 - 1.5 % 11/21/2020 12:27 [facility] Neutrophils, Absolute 4.02 1.70 - 7.00 10*3/mm3 11/21/2020 12:27 [facility] Lymphocytes, Absolute 3.07 0.70 - 3.10 10*3/mm3 11/21/2020 12:27 AM EDT [facility] Monocytes, Absolute 0.34 0.10 - 0.90 10*3/mm3 11/21/2020 12:27 AM [facility] Eosinophils, Absolute 0.38 0.00 - 0.40 10*3/mm3 11/21/2020 12:27 AM [facility] Basophils, Absolute 0.03 0.00 - 0.20 10*3/mm3 11/21/2020 12:27 AM [facility] Blood Venipuncture / Unknown 11/20/2020 3:06 PM EDT 11/20/2020 3:54 PM EDT John Garcia MD LAB BLOOD ORDERABLES Final R esult [facility]
[address] [place] [address], * (ABNORMAL) Renal Function Panel (11/20/2020 3:06 PM EDT) [facility] Glucose 211(H) 65 - 99 mg/dL 11/21/2020 12:13 AM [facility] BUN 30(H) 6 - 20 mg/dL 11/21/2020 12:13 AM [facility] Creatinine 2.86(H) 0.57 - 1.00 mg/dL 11/21/2020 12:13 AM [facility] Sodium 137 136 - 145 mmol/L 11/21/2020 12:13 AM [facility] Potassium 4.9 3.5 - 5.2 mmol/L 11/21/2020 12:13 AM [facility] Chloride 108(H) 98 - 107 mmol/L 11/21/2020 12:13 AM [facility] CO2 18.7(L) 22.0 - 29.0 mmol/L 11/21/2020 12:13 AM [facility] Calcium 9.2 8.6 - 10.5 mg/dL 11/21/2020 12:13 AM [facility] Albumin 4.10 3.50 - 5.20 g/dL 11/21/2020 12:13 AM [facility] Phosphorus 3.6 2.5 - 4.5 mg/dL 11/21/2020 12:13 AM [facility] Anion Gap 10.3 5.0 - 15.0 mmol/L 11/21/2020 12:13 AM [facility] BUN/Creatinine Ratio 10.5 7.0 - 25.0 11/21/2020 12:13 AM [facility] eGFR Non Amer 19(L) >60 mL/min/1.7 3 11/21/2020 12:13 AM [facility] Blood Venipuncture / Unknown 11/20/2020 3:06 PM EDT 11/20/2020 3:54 PM T [facility] - 11/21/2020 12:13 AM EDT GFR Normal >60 Chronic Kidney Disease <60 Kidney Failure <15 John Garcia MD LAB BLOOD ORDERABLES Final R esult [facility]
[address] [place] [address], [place] [phone] documented in this encounter Visit Diagnoses Diagnosis Anemia, unspecified type CKD stage G5/A3, GFR <15 and albumin creatinine ratio >300 mg/g documented in this encounter Care Teams Credit [employer] Teller Relationship Specialty Start Date End Date Jaquan Conley MD [address] [place] [address] PCP - General Internal Medicine 04/23/20 02/14/23 documented as of this encounter
--- OUTSIDE RECORDS SUMMARY | 2024-05-30 08:33 | XMS_ITS | Encounter Summary ---
Author Organization [facility] Address [address] [place] [address] Care Team Providers Care Compliance Intern Name Role Phone Jaquan Conley MD Primary Care Provider [phone] Reason for Visit * Reason Comments Vomiting Encounter Details Date Type Department Care Team (Late st Contact Info) Description 09/24/2020 12:09 PM EST - 09/24/2020 3:19 PM EST Emergency [facility] [address] [place] [address] Phill Gama, DO [address] [place] [address] Non-intractable vomiting with nausea, unspecified vomiting type (Primary Dx) Discharge Disposition: Home or Self [...] Sign Reading Time Taken Comments Blood Pressure 108/73 09/24/2020 3:00 PM EST Pulse 68 09/24/2020 3:08 PM EST Temperature 37 ??C (98.6 ??F) 09/24/2020 12:11 PM EST Respiratory Rate 18 09/24/2020 12:06 PM EST Oxygen Saturation 100% 09/24/2020 3:08 PM EST Inhaled Oxygen Concentration - - Weight 78.9 kg (174 lb) 09/24/2020 12:06 PM EST Height 165.1 cm (5' 5 ) 09/24/2020 12:06 PM EST Body Mass Index 28.96 09/24/2020 12:06 PM EST documented in this encounter Discharge Instructions * Attachments The following attachments cannot be sent through Care Everywhere. * Nausea and Vomiting Adult [id number] (Omani) documented in this encounter Medications at Time of Discharge acetaminophen (Tylenol) 325 MG tablet Take 2 tablets by mouth Every 6 (Six) Hours As Needed for Moderate Pain . 30 tablet 05/25/2020 atorvastatin (LIPITOR) 40 MG tablet TAKE 1 TABLET EVERY DAY 0 12/23/2015 carvedilol (COREG) 6.25 MG tablet Take 1 tablet by mouth 2 (Two) Times a Day With Meals. insulin lispro (humaLOG) 100 UNIT/ML injection Inject under the skin into the appropriate area as directed 3 (Three) Times a Day Before Meals. Uses Insulin pump lisinopril (PRINIVIL,ZESTRIL) 10 MG tablet Takes 20mg daily 0 12/23/2015 ondansetron ODT (ZOFRAN-ODT) 4 MG disintegrating tablet Take 1 tablet by mouth Every 6 (Six) Hours As Needed for Nausea or Vomiting. 20 tablet 03/14/2018 sodium bicarbonate 650 MG tablet Take 2 tablets by mouth 2 (Two) Times a Day. 240 tablet 1 06/14/2018 Vitamin D, Ergocalciferol, 05425 units capsule 50,000 Int'l Units. 06/03/2020 amLODIPine-benazepr il (LOTREL 5-10) 5-10 MG per capsule Take 1 capsule by mouth Daily. 02/16/20 23 buPROPion SR (WELLBUTRIN SR) 150 MG 12 hr tablet Take 150 mg by mouth 2 (Two) Times a Day. 02/16/20 23 cefuroxime (CEFTIN) 250 MG tablet Take 1 tablet by mouth 2 (Two) Times a Day. 14 tablet 05/03/2019 02/16/20 23 cyclobenzaprine (FLEXERIL) 10 MG tablet Take 1 tablet by mouth 3 (Three) Times a Day As Needed for Muscle Spasms. 12 tablet 08/16/2020 02/16/20 23 cyclobenzaprine (FLEXERIL) 5 MG tablet Take 1 tablet by mouth 3 (Three) Times a Day As Needed for Muscle Spasms. 12 tablet 10/31/2018 02/16/20 23 cyclobenzaprine (FLEXERIL) 5 MG tablet Take 1 tablet by mouth 3 (Three) Times a Day As Needed for Muscle Spasms. 12 tablet 05/25/2020 02/16/20 23 fenofibrate (TRICOR) 145 MG tablet Take 160 mg by mouth Every Other Day. 02/16/20 23 FLUoxetine (PROzac) 10 MG capsule Take 10 mg by mouth Daily. 02/16/20 23 gabapentin (NEURONTIN) 300 MG capsule BID 0 12/23/2015 02/16/20 23 HYDROcodone-acetami nophen (NORCO) 5-325 MG per tablet Take 1 tablet by mouth Every 6 (Six) Hours As Needed for Moderate Pain . 12 tablet 09/01/2018 02/16/20 23 hydrocortisone 0.5 % ointment Apply topically to the appropriate area as directed 2 (Two) Times a Day. 28 g 05/01/2019 02/16/20 23 promethazine (PHENERGAN) 12.5 MG tablet Take 1 tablet by mouth Every 6 (Six) Hours As Needed for Nausea or Vomiting. 15 tablet 09/24/2020 04/25/20 23 promethazine-dextro methorphan (PROMETHAZINE-DM) 6.25-15 MG/5ML syrup Take 5 mL by mouth At Night As Needed for Cough. 60 mL 05/03/2019 02/16/20 23 traMADol (ULTRAM) 50 MG tablet Take 1 tablet by mouth Every 6 (Six) Hours As Needed for Moderate Pain or Severe Pain . 6 tablet 11/02/2018 02/16/20 23 documented as of this encounter ED Notes * Phill Gama DO - 09/24/2020 3:19 PM EST Subjective 30-year-old female presents to the ED with nausea and vomiting. Patient states that she has had nausea and vomiting for 3 or 4 days not tolerating any p.o. intake for the patient. She denies abdominal pain. No fever chills. No chest pain or shortness of breath. No cough or wheeze. No prior treatments or limiting factors. No other complaints at this time. Review of Systems Gastrointestinal: Positive for nausea and vomiting. Negative for abdominal pain. All other systems reviewed and are negative. Past 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: Diagnosis Date ??? Allergic ??? Anxiety ??? Arthritis ??? Chronic constipation ??? Depression ??? Diabetes mellitus (CMS/HCC) ??? Excessive thirst ??? H/O mammogram 2014 ??? Headache ??? Hot skin ??? Hyperlipidemia ??? Hypertension ??? Injury of back ??? Leg cramps ??? Pap smear for cervical cancer screening 11/08/2015 ??? Renal disorder ??? Sinusitis ??? Urinary tract infection Allergies Allergen Reactions ??? Ibuprofen Other (See Comments) end stage kidney failure Past Surgical History: Procedure Laterality Date ??? SECTION 10/17/2012 ??? SECTION ??? 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 INDUCED 2006 [facility] History reviewed. No pertinent family history. Social History Socioeconomic History ??? Marital status: Spouse name: Not on file ??? Number of children: Not on file ??? Years of education: Not on file ??? Highest education level: Not on file Tobacco Use ??? Smoking status: Current Some Day Smoker Packs/day: 0.50 Years: 10.00 Pack years: 5.00 Types: Cigarettes ??? Smokeless tobacco: Never Used Substance and Sexual Activity ??? Alcohol use: No ??? Drug use: No ??? Sexual activity: Yes control/protection: Pill, None, Surgical Objective Physical Exam Vitals and nursing note reviewed. Constitutional: General: She is not in acute distress. Appearance: She is well-developed. She is not diaphoretic. HENT: Head: Normocephalic and atraumatic. Nose: Nose normal. Eyes: Conjunctiva/sclera: Conjunctivae normal. Cardiovascular: Rate and Rhythm: Normal rate and regular rhythm. Pulmonary: Effort: Pulmonary effort is normal. No respiratory distress. Breath sounds: Normal breath sounds. Abdominal: General: There is no distension. Palpations: Abdomen is soft. Tenderness: There is no abdominal tenderness. There is no guarding. Musculoskeletal: General: No deformity. Neurological: Mental Status: She is alert and oriented to person, place, and time. Cranial Nerves: No cranial nerve deficit. Procedures ED Course MDM Well-appearing nontoxic 30-year-old female presents with nausea and vomiting. Laboratory results are without significant acute abnormality do show some chronic kidney disease that is known. Treated with IV fluid and antiemetics. Patient is appropriate for discharge to follow-up as needed. Final diagnoses: Non-intractable vomiting with nausea, unspecified vomiting type ED Disposition ED Disposition ED Disposition Condition Comment Discharge Stable Jaquan Conley MD [address] [place] [address] Where to Get Your Medications These medications were sent to [facility]/pharmacy #[id number] - [place], [place] - [address] - [phone] - [phone] [address] [facility] [address] ?? promethazine 12.5 MG tablet Medication List No changes were made to your prescriptions during this visit. Phill Gama DO 10/03/20 [id number] documented in this encounter Plan of Treatment Not on file documented as of this encounter Procedures Procedure Name Priority Date/Time Associated Diagnosis Comments GOLD TOP - SST STAT 09/24/2020 12:10 PM EST DK GREEN TOP STAT 09/24/2020 12:10 PM EST SCAN SLIDE STAT 09/24/2020 12:10 PM EST CBC WITH AUTO DIFFERENTIAL STAT 09/24/2020 12:10 PM EST LAVENDER TOP STAT 09/24/2020 12:10 PM EST LIGHT BLUE TOP STAT 09/24/2020 12:10 PM EST RAINBOW DRAW STAT 09/24/2020 12:10 PM EST CBC AND DIFFERENTIAL STAT 09/24/2020 12:10 PM EST LIPASE STAT 09/24/2020 12:10 PM EST COMPREHENSIVE METABOLIC PANEL STAT 09/24/2020 12:10 PM EST documented in this encounter Results * Scan Slide (09/24/2020 12:10 PM EST) RBC Morphology Normal Normal 09/24/2020 12:49 PM EST [facility] WBC Morphology Normal Normal 09/24/2020 12:49 PM EST [facility] Platelet Estimate Adequate Normal 09/24/2020 12:49 PM EST [facility] Blood Venipuncture / Unknown 09/24/2020 12:10 PM EST 09/24/2020 12:12 PM EST us Phill Gama DO LAB BLOOD ORDERABLES Final Res ult [facility]
[address] [place] [address], * (ABNORMAL) CBC Auto Differential (09/24/2020 12:10 PM EST) WBC 11.87(H) 3.40 - 10.80 10*3/mm3 09/24/2020 12:49 PM EST [facility] RBC 4.15 3.77 - 5.28 10*6/mm3 09/24/2020 12:49 PM EST [facility] Hemoglobin 13.1 12.0 - 15.9 g/dL 09/24/2020 12:49 PM EST [facility] Hematocrit 38.6 34.0 - 46.6 % 09/24/2020 12:49 PM EST [facility] MCV 93.0 79.0 - 97.0 fL 09/24/2020 12:49 PM EST [facility] MCH 31.6 26.6 - 33.0 pg 09/24/2020 12:49 PM [facility] MCHC 33.9 31.5 - 35.7 g/dL 09/24/2020 12:49 PM [facility] RDW 11.9(L) 12.3 - 15.4 % 09/24/2020 12:49 PM [facility] RDW-SD 41.4 37.0 - 54.0 fl 09/24/2020 12:49 PM [facility] MPV 13.1(H) 6.0 - 12.0 fL 09/24/2020 12:49 PM [facility] Platelets 226 140 - 450 10*3/mm3 09/24/2020 12:49 PM [facility] Neutrophil % 57.4 42.7 - 76.0 % 09/24/2020 12:49 PM [facility] Lymphocyte % 33.9 19.6 - 45.3 % 09/24/2020 12:49 PM [facility] Monocyte % 5.6 5.0 - 12.0 % 09/24/2020 12:49 PM [facility] Eosinophil % 2.4 0.3 - 6.2 % 09/24/2020 12:49 PM [facility] Basophil % 0.4 0.0 - 1.5 % 09/24/2020 12:49 PM [facility] Immature Grans % 0.3 0.0 - 0.5 % 09/24/2020 12:49 PM [facility] Neutrophils, Absolute 6.81 1.70 - 7.00 10*3/mm3 09/24/2020 12:49 PM [facility] Lymphocytes, Absolute 4.02(H) 0.70 - 3.10 10*3/mm3 09/24/2020 12:49 PM [facility] Monocytes, Absolute 0.67 0.10 - 0.90 10*3/mm3 09/24/2020 12:49 PM [facility] Eosinophils, Absolute 0.29 0.00 - 0.40 10*3/mm3 09/24/2020 12:49 PM EST [facility] Basophils, Absolute 0.05 0.00 - 0.20 10*3/mm3 09/24/2020 12:49 PM EST [facility] Immature Grans, Absolute 0.03 0.00 - 0.05 10*3/mm3 09/24/2020 12:49 PM EST [facility] nRBC 0.0 0.0 - 0.2 /100 WBC 09/24/2020 12:49 PM EST [facility] Blood Venipuncture / Unknown 09/24/2020 12:10 PM EST 09/24/2020 12:12 PM EST [employer] LAB BLOOD ORDERABLES Final Res ult [facility]
[address] [place] [address], [place] [phone] * Gold Top - SST (09/24/2020 12:10 PM EST) Extra Tube Hold for add-ons. 09/24/2020 1:15 PM EST [facility] Comment:Auto resulted. Blood Venipuncture / Unknown 09/24/2020 12:10 PM EST 09/24/2020 12:12 PM EST [employer] LAB BLOOD ORDER ONLY Final Res ult [facility]
[address] [place] [address], [place] [phone] * Lavender Top (09/24/2020 12:10 PM EST) Extra Tube hold for add-on 09/24/2020 1:15 PM EST [facility] Comment:Auto resulted Blood Venipuncture / Unknown 09/24/2020 12:10 PM EST 09/24/2020 12:12 PM EST us Phill Gama DO LAB BLOOD ORDER ONLY Final Res ult Performing Organization Address City/[facility]/ZIP Co de Phone Number [facility]
[address] [place] [address], [place] [phone] * Green Top (Gel) (09/24/2020 12:10 PM EST) Extra Tube Hold for add-ons. 09/24/2020 1:15 PM EST [facility] Comment:Auto resulted. Blood Venipuncture / Unknown 09/24/2020 12:10 PM EST 09/24/2020 12:12 PM EST Phill Gama DO LAB BLOOD ORDER ONLY Final Res ult Performing Organization Address [facility] de Phone Number [facility]
[address] [place] [address], [place] [phone] * Light Blue Top (09/24/2020 12:10 PM EST) Extra Tube hold for add-on 09/24/2020 1:15 PM EST [facility] Comment:Auto resulted Blood Venipuncture / Unknown 09/24/2020 12:10 PM EST 09/24/2020 12:12 PM EST Phill Gama DO LAB BLOOD ORDER ONLY Final Res ult Performing Organization Address City/[facility]/ZIP Co de Phone Number [facility]
[address] [place] [address], [place] [phone] * Lipase (09/24/2020 12:10 PM EST) Lipase 22 13 - 60 U/L 09/24/2020 12:38 PM EST [facility] Blood Venipuncture / Unknown 09/24/2020 12:10 PM EST 09/24/2020 12:12 PM EST Phill Gama DO LAB BLOOD ORDERABLES Final Res ult [facility]
[address] [place] [phone], * (ABNORMAL) Comprehensive Metabolic Panel (09/24/2020 12:10 PM EST) Glucose 48(LL) 65 - 99 mg/dL 09/24/2020 12:49 PM EST [facility] BUN 45(H) 6 - 20 mg/dL 09/24/2020 12:49 PM [facility] Creatinine 3.71(H) 0.57 - 1.00 mg/dL 09/24/2020 12:49 PM EST [facility] Sodium 139 136 - 145 mmol/L 09/24/2020 12:49 PM EST [facility] Potassium 4.4 3.5 - 5.2 mmol/L 09/24/2020 12:49 PM EST [facility] Chloride 114(H) 98 - 107 mmol/L 09/24/2020 12:49 PM EST [facility] CO2 15.5(L) 22.0 - 29.0 mmol/L 09/24/2020 12:49 PM EST [facility] Calcium 8.5(L) 8.6 - 10.5 mg/dL 09/24/2020 12:49 PM [facility] Total Protein 6.0 6.0 - 8.5 g/dL 09/24/2020 12:49 PM EST [facility] Albumin 3.70 3.50 - 5.20 g/dL 09/24/2020 12:49 PM EST [facility] ALT (SGPT) 7 1 - 33 U/L 09/24/2020 12:49 PM EST [facility] AST (SGOT) 8 1 - 32 U/L 09/24/2020 12:49 PM EST [facility] Alkaline Phosphatase 112 39 - 117 U/L 09/24/2020 12:49 PM [facility] Total Bilirubin 0.2 0.0 - 1.2 mg/dL 09/24/2020 12:49 PM EST [facility] eGFR Non Amer 14(L) >60 mL/min/1.7 3 09/24/2020 12:49 PM EST [facility] Comment:<15 Indicative of ki dney failure. eGFR Amer 09/24/2020 12:49 PM EST [facility] Comment:<15 Indicative of ki dney failure. Globulin 2.3 gm/dL 09/24/2020 12:49 PM EST [facility] A/G Ratio 1.6 g/dL 09/24/2020 12:49 PM EST [facility] BUN/Creatinine Ratio 12.1 7.0 - 25.0 09/24/2020 12:49 PM EST [facility] Anion Gap 9.5 5.0 - 15.0 mmol/L 09/24/2020 12:49 PM [facility] Blood Venipuncture / Unknown 09/24/2020 12:10 PM EST 09/24/2020 12:12 PM EST Narrative [facility] - 09/24/2020 12:49 PM EST GFR Normal >60 Chronic Kidney Disease <60 Kidney Failure <15 Phill Gama DO LAB BLOOD ORDERABLES Final Res ult [facility]
[address] [place] [address], documented in this encounter Visit Diagnoses Diagnosis Non-intractable vomiting with nausea, unspecified vomiting type- Primary documented in this encounter Administered Medications Inactive Administered Medications - up to 3 most recent administrations Medication Order MAR Action Action Date Dose Rate Site dextrose (D50W) 25 g/ 50mL Intravenous Solution 25 mL 25 mL, Intravenous, Every 1 Hour PRN, Low Blood Sugar, Starting on Tue09/24/20 at 1252 dextrose (D50W) 25 g/ 50mL Intravenous Solution 50 mL 50 mL, Intravenous, Every 1 Hour PRN, Low Blood Sugar, Starting on Tue09/24/20 at 1250 Given 09/24/2020 12:54 PM EST 50 mL lidocaine (XYLOCAINE) 1 % 125 mg in sodium chloride 0.9 % 250 mL IVPB 125 mg (rounded from 118.35 mg = 1.5 mg/kg ? 78.9 kg), Intravenous, at 1,000 mL/hr, Administer over 15 Minutes, Once, On Tue09/24/20 at 1404, For 1 dose, Infuse over 15 minutes. Given 09/24/2020 2:35 PM EST 125 mg 1000 mL/hr ondansetron (ZOFRAN) injection 4 mg 4 mg, Intravenous, Once, On Tue09/24/20 at 1254, For 1 dose Given 09/24/2020 1:18 PM EST 4 mg sodium chloride 0.9 % bolus 1,000 mL 1,000 mL, Intravenous, at 2,000 mL/hr, Administer over 0.5 Hours, Once, On Tue09/24/20 at 1254, For 1 dose New Bag 09/24/2020 1:18 PM EST 1,000 mL 2000 mL/hr sodium chloride 0.9 % flush 10 mL 10 mL, Intravenous, As Needed, Line Care, Starting on Tue09/24/20 at 1208 documented in this encounter Active and Recently Administered Medications Times are shown in EST. Scheduled Medication Order 09/22/2020 09/23/2020 09/24/2020 acetaminophen (TYLENOL) tablet 650 mg 650 mg, Oral, Once, On Tue09/24/20 at 1336, For 1 dose, Do not exceed 4 grams of acetaminophen in a 24 hr period. Max dose of 2gm for AST/ALT greater than 120 units/L If given for pain, use the following pain scale: Mild Pain = Pain Score of 1-3, CPOT 1-2 Moderate Pain = Pain Score of 4-6, CPOT 3-4 Severe Pain = Pain Score of 7-10, CPOT 5-8 1402 (Not Given - Pr ovider: Shannon Alex RN - Reason: Contraindicated - Comment: Pt had nereidal @ 1150 at pcp office.) lidocaine (XYLOCAINE) 1 % 125 mg in sodium chloride 0.9 % 250 mL IVPB (COMPLETED) 125 mg (rounded from 118.35 mg = 1.5 mg/kg ? 78.9 kg), Intravenous, at 1,000 mL/hr, Administer over 15 Minutes, Once, On Tue09/24/20 at 1404, For 1 dose, Infuse over 15 minutes. 1435 (Given - Provid er: Shannon Alex RN) ondansetron (ZOFRAN) injection 4 mg (COMPLETED) 4 mg, Intravenous, Once, On Tue09/24/20 at 1254, For 1 dose 1318 (Given - Provid er: Shannon Alex RN) sodium chloride 0.9 % bolus 1,000 mL (COMPLETED) 1,000 mL, Intravenous, at 2,000 mL/hr, Administer over 0.5 Hours, Once, On Tue09/24/20 at 1254, For 1 dose 1318 (New Bag - Prov ider: Shannon Alex RN)1519 (Stopped - Provider: Shannon Alex RN) PRN Medication Order 09/22/2020 09/23/2020 09/24/2020 dextrose (D50W) 25 g/ 50mL Intravenous Solution 25 mL 25 mL, Intravenous, Every 1 Hour PRN, Low Blood Sugar, Starting on Tue09/24/20 at 1252 dextrose (D50W) 25 g/ 50mL Intravenous Solution 50 mL 50 mL, Intravenous, Every 1 Hour PRN, Low Blood Sugar, Starting on Tue09/24/20 at 1250 1254 (Given - Provid er: Susana Ferguson RN) sodium chloride 0.9 % flush 10 mL 10 mL, Intravenous, As Needed, Line Care, Starting on Tue09/24/20 at 1208 documented in this encounter Care Teams Compliance Intern Relationship Specialty Start Date End Date Jaquan Conley MD [address] [place] [address] PCP - General Internal Medicine 04/23/20 02/14/23 documented as of this encounter
--- OUTSIDE RECORDS SUMMARY | 2024-05-30 08:33 | XMS_ITS | Encounter Summary ---
Author Organization [facility] Address [address] [place] [address] Care Team Providers Care Felt Machine Mechanic Name Role Phone Jaquan Conley MD Primary Care Provider [phone] Encounter Details Date Type Department Care Team (Late st Contact Info) Description 05/11/2021 12:00 PM EDT Lab [facility] [address] [place] [address] Anemia, unspecified type; Chronic kidney disease, stage IV (severe); Vitamin D deficiency Social History Tobacco Use Types Packs/Day Years [...] Associated Diagnosis Comments URINALYSIS, MICROSCOPIC ONLY Routine 05/11/2021 12:16 PM EDT Chronic kidney disease, stage IV (severe) CBC WITH AUTO DIFFERENTIAL Routine 05/11/2021 12:16 PM EDT Anemia, unspecified type PROTEIN, URINE, RANDOM Routine 05/11/2021 12:16 PM EDT Chronic kidney disease, stage IV (severe) CREATININE URINE RANDOM (KIDNEY FUNCTION) GFR COMPONENT Routine 05/11/2021 12:16 PM EDT Chronic kidney disease, stage IV (severe) VITAMIN D,25-HYDROXY Routine 05/11/2021 12:16 PM EDT Vitamin D deficiency URINALYSIS AND MICROSCOPIC Routine 05/11/2021 12:16 PM EDT Chronic kidney disease, stage IV (severe) URINALYSIS WITHOUT MICROSCOPIC (NO CULTURE) Routine 05/11/2021 12:16 PM EDT Chronic kidney disease, stage IV (severe) CBC AND DIFFERENTIAL Routine 05/11/2021 12:16 PM EDT Anemia, unspecified type RENAL FUNCTION PANEL Routine 05/11/2021 12:16 PM EDT Chronic kidney disease, stage IV (severe) PTH, INTACT Routine 05/11/2021 12:15 PM EDT Vitamin D deficiency documented in this encounter Results * (ABNORMAL) Urinalysis, Microscopic Only - Urine, Clean Catch (05/11/2021 12:16 PM EDT) RBC, UA 3-5(A) None Seen, 0-2 /HPF 05/11/2021 7:05 PM EDT [facility] WBC, UA Too Numerous to Count(A) None Seen, 0-2 /HPF 05/11/2021 7:05 PM EDT [facility] Bacteria, UA 4+(A) None Seen /HPF 05/11/2021 7:05 PM EDT [facility] Squamous Epithelial Cells, UA 3-6(A) None Seen, 0-2 /HPF 05/11/2021 7:05 PM EDT [facility] Hyaline Casts, UA 0-2 None Seen /LPF 05/11/2021 7:05 PM EDT [facility] Methodology Manual Light Microscopy 05/11/2021 7:05 PM EDT [facility] Urine Urine specimen collection, clean catch / Unknown Collection / Unknown 05/11/2021 12:16 PM EDT 05/11/2021 12:22 PM EDT us Mare Kapoor SUPERVISOR MAINTENANCE URINE ORDERABLES Final Result [facility]
[address] [place] [address], * (ABNORMAL) Urinalysis without microscopic (no culture) - Urine, Clean Catch (05/11/2021 12:16 PM EDT) Color, UA Yellow Yellow, Straw 05/11/2021 6:28 PM EDT [facility] Appearance, UA Cloudy(A) Clear 05/11/2021 6:28 PM EDT [facility] pH, UA 6.0 5.0 - 8.0 05/11/2021 6:28 PM EDT [facility] Specific [place], UA 1.013 1.005 - 1.030 05/11/2021 6:28 PM EDT [facility] Glucose, UA Negative Negative 05/11/2021 6:28 PM EDT [facility] Ketones, UA Negative Negative 05/11/2021 6:28 PM EDT [facility] Bilirubin, UA Negative Negative 05/11/2021 6:28 PM EDT [facility] Blood, UA Moderate (2+)(A) Negative 05/11/2021 6:28 PM EDT [facility] Protein, UA 100 mg/dL (2+)(A) Negative 05/11/2021 6:28 PM EDT [facility] Leuk Esterase, UA Large (3+)(A) Negative 05/11/2021 6:28 PM EDT [facility] Nitrite, UA Positive(A) Negative 05/11/2021 6:28 PM EDT [facility] Urobilinogen, UA 0.2 E.U./dL 0.2 - 1.0 E.U./dL 05/11/2021 6:28 PM EDT [facility] Urine Urine specimen collection, clean catch / Unknown Collection / Unknown 05/11/2021 12:16 PM EDT 05/11/2021 12:22 PM EDT us Mare Kapoor SUPERVISOR MAINTENANCE URINE ORDERABLES Final Result [facility]
[address] [place] [address], * (ABNORMAL) CBC Auto Differential (05/11/2021 12:16 PM EDT) WBC 6.65 3.40 - 10.80 10*3/mm3 05/11/2021 6:42 PM EDT [facility] RBC 4.02 3.77 - 5.28 10*6/mm3 05/11/2021 6:42 PM EDT [facility] Hemoglobin 12.4 12.0 - 15.9 g/dL 05/11/2021 6:42 PM EDT [facility] Hematocrit 37.6 34.0 - 46.6 % 05/11/2021 6:42 PM EDT [facility] MCV 93.5 79.0 - 97.0 fL 05/11/2021 6:42 PM EDT [facility] MCH 30.8 26.6 - 33.0 pg 05/11/2021 6:42 PM EDT [facility] MCHC 33.0 31.5 - 35.7 g/dL 05/11/2021 6:42 PM EDT [facility] RDW 12.0(L) 12.3 - 15.4 % 05/11/2021 6:42 PM EDT [facility] RDW-SD 41.4 37.0 - 54.0 fl 05/11/2021 6:42 PM EDT [facility] MPV 14.4(H) 6.0 - 12.0 fL 05/11/2021 6:42 PM EDT [facility] Platelets 137(L) 140 - 450 10*3/mm3 05/11/2021 6:42 PM EDT [facility] Neutrophil % 52.8 42.7 - 76.0 % 05/11/2021 6:42 PM EDT [facility] Lymphocyte % 38.2 19.6 - 45.3 % 05/11/2021 6:42 PM EDT [facility] Monocyte % 5.0 5.0 - 12.0 % 05/11/2021 6:42 PM EDT [facility] Eosinophil % 3.3 0.3 - 6.2 % 05/11/2021 6:42 PM EDT [facility] Basophil % 0.5 0.0 - 1.5 % 05/11/2021 6:42 PM EDT [facility] Neutrophils, Absolute 3.52 1.70 - 7.00 10*3/mm3 05/11/2021 6:42 PM EDT [facility] Lymphocytes, Absolute 2.54 0.70 - 3.10 10*3/mm3 05/11/2021 6:42 PM EDT [facility] Monocytes, Absolute 0.33 0.10 - 0.90 10*3/mm3 05/11/2021 6:42 PM EDT [facility] Eosinophils, Absolute 0.22 0.00 - 0.40 10*3/mm3 05/11/2021 6:42 PM EDT [facility] Basophils, Absolute 0.03 0.00 - 0.20 10*3/mm3 05/11/2021 6:42 PM T [facility] Blood Venipuncture / Unknown 05/11/2021 12:16 PM EDT 05/11/2021 12:23 PM EDT us Mare Kapoor SUPERVISOR MAINTENANCE LAB BLOOD ORDERABLES Final Resu lt [facility]
[address] [place] [address], * Vitamin D 25 Hydroxy (05/11/2021 12:16 PM EDT) 25 Hydroxy, Vitamin D 23.8 ng/ml 05/11/2021 7:17 PM EDT [facility] Blood Venipuncture / Unknown 05/11/2021 12:16 PM EDT 05/11/2021 12:23 PM EDT [facility] - 05/11/2021 7:17 PM EDT Reference Range for Total Vitamin D 25(OH) Deficiency <20.0 ng/mL Insufficiency 21-29 ng/mL Sufficiency 30-100 ng/mL Toxicity >100 ng/ml Results may be falsely increased if patient taking Biotin. Mare Kapoor [facility] LAB BLOOD ORDERABLES Final Resu lt Performing Organization Address City/[facility]/ZIP Co de Phone Number [facility]
[address] [place] [address], * (ABNORMAL) Renal Function Panel (05/11/2021 12:16 PM EDT) [facility] Glucose 98 65 - 99 mg/dL 05/11/2021 7:49 PM EDT [facility] BUN 43(H) 6 - 20 mg/dL 05/11/2021 7:49 PM EDT [facility] Creatinine 3.74(H) 0.57 - 1.00 mg/dL 05/11/2021 7:49 PM EDT [facility] Sodium 144 136 - 145 mmol/L 05/11/2021 7:49 PM EDT [facility] Potassium 5.0 3.5 - 5.2 mmol/L 05/11/2021 7:49 PM EDT [facility] Chloride 111(H) 98 - 107 mmol/L 05/11/2021 7:49 PM EDT [facility] CO2 19.2(L) 22.0 - 29.0 mmol/L 05/11/2021 7:49 PM EDT [facility] Calcium 8.5(L) 8.6 - 10.5 mg/dL 05/11/2021 7:49 PM EDT [facility] Albumin 3.50 3.50 - 5.20 g/dL 05/11/2021 7:49 PM EDT [facility] Phosphorus 5.2(H) 2.5 - 4.5 mg/dL 05/11/2021 7:49 PM EDT [facility] Anion Gap 13.8 5.0 - 15.0 mmol/L 05/11/2021 7:49 PM EDT [facility] BUN/Creatinine Ratio 11.5 7.0 - 25.0 05/11/2021 7:49 PM EDT [facility] eGFR Non Amer 14(L) >60 mL/min/1.7 3 05/11/2021 7:49 PM EDT [facility] Comment:<15 Indicative of ki dney failure. eGFR Amer 05/11/2021 7:49 PM EDT [facility] Comment:<15 Indicative of ki dney failure. Blood Venipuncture / Unknown 05/11/2021 12:16 PM EDT 05/11/2021 12:23 PM EDT Narrative [facility] - 05/11/2021 7:49 PM EDT GFR Normal >60 Chronic Kidney Disease <60 Kidney Failure <15 Mare Kapoor APRN LAB BLOOD ORDERABLES Final Resu lt [facility]
[address] [place] [address], * Protein, Urine, Random - Urine, Clean Catch (05/11/2021 12:16 PM EDT) Total Protein, Urine 116.0 mg/dL 05/11/2021 7:17 PM EDT [facility] Urine Urine specimen collection, clean catch / Unknown Collection / Unknown 05/11/2021 12:16 PM EDT 05/11/2021 12:22 PM EDT [facility] - 05/11/2021 7:17 PM EDT Reference intervals for random urine have not been established. Clinical usage is dependent upon physician's interpretation in combination with other laboratory tests. us Mare Kapoor SUPERVISOR MAINTENANCE URINE ORDERABLES Final Result Performing Organization Address [facility] Co de Phone Number [facility]
[address] [place] [address], * Creatinine, Urine, Random - Urine, Clean Catch (05/11/2021 12:16 PM EDT) Creatinine, Urine 72.6 mg/dL 05/11/2021 7:17 PM EDT [facility] Urine Urine specimen collection, clean catch / Unknown Collection / Unknown 05/11/2021 12:16 PM EDT 05/11/2021 12:22 PM EDT [facility] - 05/11/2021 7:17 PM EDT Reference intervals for random urine have not been established. Clinical usage is dependent upon physician's interpretation in combination with other laboratory tests. us Mare Kapoor APRN URINE ORDERABLES Final Result Performing Organization Address [facility] Phone Number [facility]
[address] [place] [address], * (ABNORMAL) PTH, Intact (05/11/2021 12:15 PM EDT) PTH, Intact 286.0(H) 15.0 - 65.0 pg/mL 05/11/2021 7:07 PM EDT [facility] Blood Venipuncture / Unknown 05/11/2021 12:15 PM EDT 05/11/2021 12:23 PM EDT [facility] - 05/11/2021 7:07 PM EDT Results may be falsely decreased if patient taking Biotin. us Mare Kapoor APRN LAB BLOOD ORDERABLES Final Resu lt [facility]
[address] [place] [address], [place] [phone] documented in this encounter Visit Diagnoses Diagnosis Anemia, unspecified type Chronic kidney disease, stage IV (severe) Chronic kidney disease, Stage IV (severe) Vitamin D deficiency documented in this encounter Care Teams Felt Machine Mechanic Relationship Specialty Start Date End Date Jaquan Conley MD [address] [place] [address] PCP - General Internal Medicine 04/23/20 02/14/23 documented as of this encounter
--- OUTSIDE RECORDS SUMMARY | 2024-05-30 08:33 | XMS_ITS | Encounter Summary ---
Author Organization [facility] Address [address] [place] [address] Care Team Providers Care Quarter Inspector Name Role Phone Jaquan Conley MD Primary Care Provider [phone] Encounter Details Date Type Department Care Team (Late st Contact Info) Description 06/26/2021 11:50 AM EST Lab [facility] [address] [place] [address] Urinary tract infection without hematuria, site unspecified Social History Tobacco Use Types Packs/Day Years [...] Procedure Name Priority Date/Time Associated Diagnosis Comments URINE CULTURE Routine 06/26/2021 11:56 AM EST Urinary tract infection without hematuria, site unspecified documented in this encounter Results * Urine Culture - Urine, Urine, Clean Catch (06/26/2021 11:56 AM EST) Urine Culture Final report 06/28/2021 6:39 AM EST [facility] Result 1 No growth 06/28/2021 6:39 AM EST [facility] Urine Urine specimen obtained by clean catch procedure / Unknown Collection / Unknown 06/26/2021 11:56 AM EST 06/26/2021 12:08 PM EST Narrative [facility] - 06/28/2021 6:39 AM EST Performed at: ??01 - [facility] [address] ??[id number] Skilled Helper: Jacob Whaley PhD, Phone: ??[phone] us Mare Kapoor MACHINIST OUTSIDE MICROBIOLOGY - GENERAL ORDERABL ES Final Result [facility] [address] [place] [address], documented in this encounter Visit Diagnoses Diagnosis Urinary tract infection without hematuria, site unspecified documented in this encounter Care Teams Quarter Inspector Relationship Specialty Start Date End Date Jaquan Conley MD [address] [place] [address] PCP - General Internal Medicine 04/23/20 02/14/23 documented as of this encounter
--- OUTSIDE RECORDS SUMMARY | 2024-05-30 08:33 | XMS_ITS | Encounter Summary ---
[facility] Organization [facility] Address [address] [place] [address] Care Team Providers Care Senior Director Marketing Name Role Phone Jaquan Conley MD Primary Care Provider [phone] Encounter Details Date Type Department Care Team (Late st Contact Info) Description 05/15/2021 12:00 PM EDT Lab [facility] [address] [place] [address] Anemia, unspecified type Social History Tobacco Use Types Packs/Day Years [...] Associated Diagnosis Comments URINALYSIS, MICROSCOPIC ONLY Routine 05/15/2021 12:18 PM EDT Anemia, unspecified type CBC WITH AUTO DIFFERENTIAL Routine 05/15/2021 12:18 PM EDT Anemia, unspecified type IRON PROFILEC Routine 05/15/2021 12:18 PM EDT Anemia, unspecified type URINALYSIS AND MICROSCOPIC Routine 05/15/2021 12:18 PM EDT Anemia, unspecified type URINALYSIS WITHOUT MICROSCOPIC (NO CULTURE) Routine 05/15/2021 12:18 PM EDT Anemia, unspecified type CBC AND DIFFERENTIAL Routine 05/15/2021 12:18 PM EDT Anemia, unspecified type FERRITIN Routine 05/15/2021 12:18 PM EDT Anemia, unspecified type RENAL FUNCTION PANEL Routine 05/15/2021 12:18 PM EDT Anemia, unspecified type documented in this encounter Results * (ABNORMAL) CBC Auto Differential (05/15/2021 12:18 PM EDT) WBC 6.15 3.40 - 10.80 10*3/mm3 05/15/2021 6:58 PM EDT [facility] RBC 4.07 3.77 - 5.28 10*6/mm3 05/15/2021 6:58 PM EDT [facility] Hemoglobin 12.5 12.0 - 15.9 g/dL 05/15/2021 6:58 PM EDT [facility] Hematocrit 38.4 34.0 - 46.6 % 05/15/2021 6:58 PM EDT [facility] MCV 94.3 79.0 - 97.0 fL 05/15/2021 6:58 PM EDT [facility] MCH 30.7 26.6 - 33.0 pg 05/15/2021 6:58 PM EDT [facility] MCHC 32.6 31.5 - 35.7 g/dL 05/15/2021 6:58 PM EDT [facility] RDW 12.2(L) 12.3 - 15.4 % 05/15/2021 6:58 PM EDT [facility] RDW-SD 41.9 37.0 - 54.0 fl 05/15/2021 6:58 PM T [facility] MPV 13.9(H) 6.0 - 12.0 fL 05/15/2021 6:58 PM EDT [facility] Platelets 162 140 - 450 10*3/mm3 05/15/2021 6:58 PM EDT [facility] Neutrophil % 53.8 42.7 - 76.0 % 05/15/2021 6:58 PM EDT [facility] Lymphocyte % 36.7 19.6 - 45.3 % 05/15/2021 6:58 PM EDT [facility] Monocyte % 5.2 5.0 - 12.0 % 05/15/2021 6:58 PM EDT [facility] Eosinophil % 3.6 0.3 - 6.2 % 05/15/2021 6:58 PM EDT [facility] Basophil % 0.5 0.0 - 1.5 % 05/15/2021 6:58 PM EDT [facility] Immature Grans % 0.2 0.0 - 0.5 % 05/15/2021 6:58 PM T [facility] Neutrophils, Absolute 3.31 1.70 - 7.00 10*3/mm3 05/15/2021 6:58 PM EDT [facility] Lymphocytes, Absolute 2.26 0.70 - 3.10 10*3/mm3 05/15/2021 6:58 PM EDT [facility] Monocytes, Absolute 0.32 0.10 - 0.90 10*3/mm3 05/15/2021 6:58 PM EDT [facility] Eosinophils, Absolute 0.22 0.00 - 0.40 10*3/mm3 05/15/2021 6:58 PM EDT [facility] Basophils, Absolute 0.03 0.00 - 0.20 10*3/mm3 05/15/2021 6:58 PM EDT [facility] Immature Grans, Absolute 0.01 0.00 - 0.05 10*3/mm3 05/15/2021 6:58 PM EDT [facility] nRBC 0.0 0.0 - 0.2 /100 WBC 05/15/2021 6:58 PM EDT [facility] Blood Venipuncture / Unknown 05/15/2021 12:18 PM EDT 05/15/2021 1:22 PM EDT Adina Sands MD LAB BLOOD ORDERABLES Amy l Result Performing Organization Address City/[facility]/ZIP Co de Phone Number [facility]
[address] [place] [address], * (ABNORMAL) Urinalysis, Microscopic Only - Urine, Clean Catch (05/15/2021 12:18 PM EDT) RBC, UA 0-2 None Seen, 0-2 /HPF 05/15/2021 7:20 PM EDT [facility] WBC, UA 0-2 None Seen, 0-2 /HPF 05/15/2021 7:20 PM EDT [facility] Bacteria, UA 4+(A) None Seen /HPF 05/15/2021 7:20 PM EDT [facility] Squamous Epithelial Cells, UA 0-2 None Seen, 0-2 /HPF 05/15/2021 7:20 PM EDT [facility] Hyaline Casts, UA None Seen None Seen /LPF 05/15/2021 7:20 PM EDT [facility] Methodology Automated Microscopy 05/15/2021 7:20 PM EDT [facility] Urine Urine specimen collection, clean catch / Unknown Collection / Unknown 05/15/2021 12:18 PM EDT 05/15/2021 1:19 PM EDT Adina Sands MD URINE ORDERABLES Final Re sult Performing Organization Address City/[facility]/ZIP Co de Phone Number [facility]
[address] [place] [address], [place] [phone] * (ABNORMAL) Urinalysis without microscopic (no culture) - Urine, Clean Catch (05/15/2021 12:18 PM EDT) Color, UA Yellow Yellow, Straw 05/15/2021 7:14 PM EDT [facility] Appearance, UA Clear Clear 05/15/2021 7:14 PM EDT [facility] pH, UA 6.5 5.0 - 8.0 05/15/2021 7:14 PM EDT [facility] Specific [place], UA 1.012 1.005 - 1.030 05/15/2021 7:14 PM EDT [facility] Glucose, UA Negative Negative 05/15/2021 7:14 PM EDT [facility] Ketones, UA Negative Negative 05/15/2021 7:14 PM EDT [facility] Bilirubin, UA Negative Negative 05/15/2021 7:14 PM EDT [facility] Blood, UA Negative Negative 05/15/2021 7:14 PM EDT [facility] Protein, UA 100 mg/dL (2+)(A) Negative 05/15/2021 7:14 PM EDT [facility] Leuk Esterase, UA Negative Negative 05/15/2021 7:14 PM EDT [facility] Nitrite, UA Negative Negative 05/15/2021 7:14 PM EDT [facility] Urobilinogen, UA 0.2 E.U./dL 0.2 - 1.0 E.U./dL 05/15/2021 7:14 PM EDT [facility] Urine Urine specimen collection, clean catch / Unknown Collection / Unknown 05/15/2021 12:18 PM EDT 05/15/2021 1:19 PM EDT us Adina Sands MD URINE ORDERABLES Final Re sult [facility]
[address] [place] [address], [place] [phone] * (ABNORMAL) Ferritin (05/15/2021 12:18 PM EDT) Pathologist [facility] Ferritin 302.00(H) 13.00 - 150.00 ng/mL 05/15/2021 8:42 PM EDT [facility] Blood Venipuncture / Unknown 05/15/2021 12:18 PM EDT 05/15/2021 1:22 PM EDT [facility] - 05/15/2021 8:42 PM EDT Results may be falsely decreased if patient taking Biotin. Adina Sands MD LAB BLOOD ORDERABLES Amy foreman Result [facility]
[address] [place] [address], * (ABNORMAL) Renal Function Panel (05/15/2021 12:18 PM EDT) Pathologist [facility] Glucose 94 65 - 99 mg/dL 05/15/2021 8:28 PM EDT [facility] BUN 40(H) 6 - 20 mg/dL 05/15/2021 8:28 PM EDT [facility] Creatinine 3.83(H) 0.57 - 1.00 mg/dL 05/15/2021 8:28 PM EDT [facility] Sodium 140 136 - 145 mmol/L 05/15/2021 8:28 PM EDT [facility] Potassium 5.5(H) 3.5 - 5.2 mmol/L 05/15/2021 8:28 PM EDT [facility] Chloride 108(H) 98 - 107 mmol/L 05/15/2021 8:28 PM EDT [facility] CO2 21.5(L) 22.0 - 29.0 mmol/L 05/15/2021 8:28 PM EDT [facility] Calcium 8.8 8.6 - 10.5 mg/dL 05/15/2021 8:28 PM EDT [facility] Albumin 3.90 3.50 - 5.20 g/dL 05/15/2021 8:28 PM EDT [facility] Phosphorus 5.1(H) 2.5 - 4.5 mg/dL 05/15/2021 8:28 PM EDT [facility] Anion Gap 10.5 5.0 - 15.0 mmol/L 05/15/2021 8:28 PM EDT [facility] BUN/Creatinine Ratio 10.4 7.0 - 25.0 05/15/2021 8:28 PM EDT [facility] eGFR Non Amer 14(L) >60 mL/min/1.7 3 05/15/2021 8:28 PM EDT [facility] Comment:<15 Indicative of ki dney failure. eGFR Amer 05/15/2021 8:28 PM EDT [facility] Comment:<15 Indicative of ki dney failure. Blood Venipuncture / Unknown 05/15/2021 12:18 PM EDT 05/15/2021 1:22 PM EDT Narrative [facility] - 05/15/2021 8:28 PM EDT GFR Normal >60 Chronic Kidney Disease <60 Kidney Failure <15 Adina Sands MD LAB BLOOD ORDERABLES Amy l Result [facility]
[address] [place] [address], * (ABNORMAL) Iron Profile (05/15/2021 12:18 PM EDT) Iron 67 37 - 145 mcg/dL 05/15/2021 8:28 PM EDT [facility] Iron Saturation (TSAT) 27 20 - 50 % 05/15/2021 8:28 PM EDT [facility] Transferrin 168(L) 200 - 360 mg/dL 05/15/2021 8:28 PM EDT [facility] TIBC 250(L) 298 - 536 mcg/dL 05/15/2021 8:28 PM EDT [facility] Blood Venipuncture / Unknown 05/15/2021 12:18 PM EDT 05/15/2021 1:22 PM EDT Adina Sands MD LAB BLOOD ORDERABLES Amy l Result [facility]
[address] [place] [address], documented in this encounter Visit Diagnoses Diagnosis Anemia, unspecified type documented in this encounter Care Teams Senior Director Marketing Relationship Specialty Start Date End Date Jaquan Conley MD [address] [place] [id number] PCP - General Internal Medicine 04/23/20 02/14/23 documented as of this encounter
--- OUTSIDE RECORDS SUMMARY | 2024-05-30 08:33 | XMS_ITS | Encounter Summary ---
Author Organization [facility] Address [address] [place] [address] Care Team Providers Care Fishing Tool Operator Name Role Phone Maria A Soria CONTINUOUS PROCESS MACHINE OPERATOR Primary Care Provider [phone] Reason for Visit * Reason Comments Establish Care Encounter Details Date Type Department Care Team (Late st Contact Info) Description 02/15/2023 11:00 AM EDT Office Visit [facility] [address] [place] [phone] Maria A Soria, CONTINUOUS PROCESS MACHINE OPERATOR [address] [place] [address] Essential hypertension (Primary Dx); ESRD (end stage renal disease) on dialysis; Mixed hyperlipidemia; History of bariatric surgery; History of drug abuse; Persistent depressive disorder; Chronic kidney disease-mineral and bone disorder; Type 1 diabetes mellitus with hyperglycemia; Encounter to establish care Social History Tobacco Use Types Packs/Day Years [...] Sign Reading Time Taken Comments Blood Pressure 112/76 02/15/2023 10:14 AM EDT Pulse 88 02/15/2023 10:14 AM EDT Temperature 36.6 ??C (97.8 ??F) 02/15/2023 1 0:14 AM EDT Respiratory Rate 18 02/15/2023 10:1 4 AM EDT Oxygen Saturation 98% 02/15/2023 10: 14 AM EDT Inhaled Oxygen Concentration - - Weight 71.6 kg (157 lb 12.8 oz) 023 10:14 AM EDT Height 162.6 cm (5' 4 ) 02/15/2023 10:1 4 AM EDT Body Mass Index 27.09 02/15/2023 10:14 AM EDT documented in this encounter Progress Notes * Maria A Soria APRN - 02/15/2023 3:07 PM EDTAssociated Problem(s): Type 1 diabetes mellitus with hyperglycemia Patient followed by [facility] for type 1 diabetes that was diagnosed at the age of 12 years.History of poor compliance given development of diabetic nephropathy. Currently utilizing insulin pump. Is not up-to-date on diabetic foot exam or vision exam. Has been followed by [facility]. Reports last A1c to be approximately 6.4% * Maria A Soria APRN - 02/15/2023 3:04 PM EDTAssociated Problem(s): Chronic kidney disease-mineral and bone disorder Patient suffers from end-stage renal disease bone mineral disorder. Utilizing calcium acetate 3 times daily with meals for hyperphosphatemia. He notes poor compliance with this regimen due to diarrhea. He has discussed the side effects with Dr. Stevens who request that she attempt to stay on the medication for another month then they would consider changing phosphate binder. Discussed importanceof compliance with renal diet and medication regimen in order to avoid calciphylaxis * Maria A Soria APRN - 02/15/2023 3:01 PM EDTAssociated Problem(s): ESRD (end stage renal disease) on dialysis Etiology of end-stage renal disease appears to be hypertensive nephrosclerosis as well as diabetic Nephropathy. She was a noncompliant type I diabetic for many years, diagnosed at the age of 12. She is currently performing home peritoneal dialysis nocturnally 6 days/week. Working towards renal transplant with [facility]. To pursue transplant services at [facility] as well but finances are making that impossible at the current time. * Maria A Soria APRN - 02/15/2023 3:00 PM EDTAssociated Problem(s): Essential hypertension Blood pressure [...] prescription may change to promote less ultrafiltration. * Maria A Soria APRN - 02/15/2023 2:58 PM EDTAssociated Problem(s): Hyperlipidemia Patient reports having routine lipid panel checked since 2020, those results are not currently available. He is not currently utilizing any medications to treat hyperlipidemia however past medications include fenofibrate 145 mg daily. Return for annual physical at which time we will recheck her lipids * Maria A Soria APRN - 02/15/2023 11:00 AM EDT Images from the original note were not included. Office Note Name: Crystal Archer : 1990 Chief Complaint Establish Care Subjective History of Present Illness: Crystal Archer is a 32 y.o. female who presents today to establish care. She was previously followed by a PCP in [facility], but finds it difficult to continue to travel the distance so has decided to establish care in our office. She has extensive medical history including type 1 diabetes,hyperlipidemia, hypertension, depression, anemia of chronic disease, bone mineral disorder and end-stage renal disease requiring chronic peritoneal dialysis. He has additional history of drug abuse and bariatric surgery. Underwent gastric sleeve years ago. Max weight was 398 pounds, today weighing 157 pounds. She has history of drug abuse, drug of choice being meth. Notes she has been clean sinceApril 2022. She is followed by [facility]. She notes the etiology of her end-stage renal disease to be uncontrolled diabetes and hypertension. Diagnosed with type 1 diabetesat the age of [age] years old. Review of Systems Constitutional: Negative for fatigue. HENT: Negative for sore throat. Respiratory: Negative for cough, chest tightness, shortness of breath and wheezing. Cardiovascular: Negative for chest pain, palpitations and leg swelling. Gastrointestinal: Positive for constipation. Negative for abdominal pain, diarrhea, nausea, vomiting and indigestion. Endocrine: Negative for polydipsia and polyuria. Musculoskeletal: Negative for arthralgias and myalgias. Skin: Negative for rash and bruise. Neurological: Negative for dizziness, weakness, light-headedness, numbness and headache. Hematological: Does not bruise/bleed easily. Psychiatric/Behavioral: Positive for depressed mood and stress. Negative for agitation, self-injury, sleep disturbance and suicidal ideas. Objective Past 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: Diagnosis Date Allergic Anxiety Arthritis Chronic constipation Depression Diabetes mellitus Excessive thirst H/O mammogram 2015 Headache Hot skin Hyperlipidemia Hypertension Injury of back Leg cramps Pap smear for cervical cancer screening 11/08/2015 Renal disorder Sinusitis Urinary tract infection Past Surgical History: Procedure Laterality Date SECTION 10/17/2012 SECTION GASTRIC SLEEVE LAPAROSCOPIC INDUCED 2006 [facility] History reviewed. No pertinent family history. Vital Signs BP 112/76 (BP Location: Right arm, Patient Position: Sitting, Cuff Size: Adult) Pulse 88 Temp 97.8 ??F (36.6 ??C) (Temporal) Resp 18 Ht 162.6 cm (64 ) Wt 71.6 kg (157 lb 12.8 oz) SpO2 98% BMI 27.09 kg/m?? Estimated body mass index is 27.09 kg/m?? as calculated from the following: Height as of this encounter: 162.6 cm (64 ). Weight as of this encounter: 71.6 kg (157 lb 12.8 oz). Physical Exam Vitals reviewed. HENT: Right Ear: Tympanic membrane, ear canal and external ear normal. Left Ear: Tympanic membrane, ear canal and external ear normal. Eyes: Conjunctiva/sclera: Conjunctivae normal. Pupils: Pupils are equal, round, and reactive to light. Cardiovascular: Rate and Rhythm: Normal rate and regular rhythm. Pulses: Normal pulses. Heart sounds: Normal heart sounds. No murmur heard. Pulmonary: Effort: Pulmonary effort is normal. Breath sounds: Normal breath sounds. Abdominal: General: Bowel sounds are normal. Palpations: Abdomen is soft. Comments: + Tenkhoff Catheter noted, clean, dry and intact Musculoskeletal: General: Normal range of motion. Skin: General: Skin is warm and dry. Neurological: Mental Status: She is alert and oriented to person, place, and time. Psychiatric: Mood and Affect: Mood normal. Behavior: Behavior normal. Thought Content: Thought content normal. Judgment: Judgment normal. POCT Results (if applicable): Results for orders placed or performed in visit on 06/26/21 Urine Culture - Urine, Urine, Clean Catch Specimen: Urine, Clean Catch Result Value Ref Range Urine Culture Final report Result 1 No growth Assessment and Plan Diagnoses and all orders for this visit: 1. Essential hypertension (Primary) Assessment & Plan: Blood pressure well controlled [...] prescription may change to promote less ultrafiltration. Orders: - Lipid Panel; Future - TSH Rfx On Abnormal To Free T4; Future 2. ESRD (end stage renal disease) on dialysis Assessment & Plan: Etiology of end-stage renal disease appears to be hypertensive nephrosclerosis as well as diabetic Nephropathy. She was a noncompliant type I diabetic for many years, diagnosed at the age of 12. She is currently performing home peritoneal dialysis nocturnally 6 days/week. Working towards renal transplant with [facility]. To pursue transplant services at [facility] as well but finances are making that impossible at the current time. Orders: - CBC & Differential; Future 3. Mixed hyperlipidemia Assessment & Plan: Patient reports having routine lipid panel checked since 2020, those results are not currently available. He is not currently utilizing any medications to treat hyperlipidemia however past medications include fenofibrate 145 mg daily. Return for annual physical at which time we will recheck her lipids 4. History of bariatric surgery Assessment & Plan: Underwent sleeve gastrectomy in December 2019 with maximum weight of 398 pounds. Currently weighs 157 pounds. 5. History of drug abuse Assessment & Plan: Meth drug of choice. 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 Persistent depressive disorder Assessment & Plan: Patient with longstanding history of depression due to a unfortunate childhood with an alcoholic/drug addict mother who did not care for her appropriately. Also has history of drug abuse herself. Sheis not under the care of any mental health providers at this time. Discussed benefits of regular counseling and therapy particularly with her traumatic past. Denies any SI or HI. Feels she would benefit from antidepressant therapy. Had adverse effects from fluoxetine in the past. -Initiate Wellbutrin 150 mg once daily -Follow-up in 4 weeks to monitor efficacy Orders: - buPROPion XL (Wellbutrin XL) 150 MG 24 hr tablet; Take 1 tablet by mouth Daily. Dispense: 90 tablet; Refill: 0 7. Chronic kidney disease-mineral and bone disorder Assessment & Plan: Patient suffers from end-stage renal disease bone mineral disorder. Utilizing calcium acetate 3 times daily with meals for hyperphosphatemia. He notes poor compliance with this regimen due to diarrhea. He has discussed the side effects with Dr. Stevens who request that she attempt to stay on the medication for another month then they would consider changing phosphate binder. Discussed importanceof compliance with renal diet and medication regimen in order to avoid calciphylaxis 8. Type 1 diabetes mellitus with hyperglycemia Assessment & Plan: Patient followed by endocrinology for type 1 diabetes that was diagnosed at the age of 12 years.History of poor compliance given development of diabetic nephropathy. Currently utilizing insulin pump. Is not up-to-date on diabetic foot exam or vision exam. Has been followed by endocrinology. Reports last A1c to be approximately 6.4% Orders: - Hemoglobin A1c; Future - MicroAlbumin, Urine, Random - Urine, Clean Catch; Future - Comprehensive Metabolic Panel; Future 9. Encounter to establish care BMI is >= 25 and <30. (Overweight) The following options were offered after discussion;: nutrition counseling/recommendations I spent 45 minutes caring for Crystal on this date of service. This time includes time spent by me inthe following activities:preparing for the visit, obtaining and/or reviewing a separately obtained history, performing a medically appropriate examination and/or evaluation , counseling and educatingthe patient/family/caregiver, ordering medications, tests, or procedures, and documenting information in the medical record Vaccine Counseling: ???Discussed risks/benefits to vaccination, reviewed components of the vaccine, discussed VIS, discussed informed consent, informed consent obtained. Patient/Parent was allowed to accept or refuse vaccine. Questions answered to satisfactory state of patient/Parent. We reviewed typical age appropriate and seasonally appropriate vaccinations. Reviewed immunization history and updated state vaccination form as needed. Patient was counseled on COVID-19 Hep B PPSV23 Advanced Care Planning: Patient does not have an advance directive, information provided. Smoking Cessation: less than 3 minutes spent counseling Not agreeable to stopping Follow Up Return in about 4 weeks (around 03/15/2023) for Annual physical. Maria A Soria APRN * Maria A Soria APRN - 02/15/2023 10:47 AM EDTAssociated Problem(s): Depression Patient with longstanding history of depression due to a unfortunate childhood with an alcoholic/drug addict mother who did not care for her appropriately. Also has history of drug abuse herself. Sheis not under the care of any mental health providers at this time. Discussed benefits of regular counseling and therapy particularly with her traumatic past. Denies any SI or HI. Feels she would benefit from antidepressant therapy. Had adverse effects from fluoxetine in the past. -Initiate Wellbutrin 150 mg once daily -Follow-up in 4 weeks to monitor efficacy * Maria A Soria APRN - 02/15/2023 10:45 AM EDTAssociated Problem(s): History of drug abuse Meth drug of choice. Clean since April 2022 * Maria A Soria APRN - 02/15/2023 10:44 AM EDTAssociated Problem(s): History of bariatric surgery Underwent sleeve gastrectomy in December 2019 with maximum weight of 398 pounds. Currently weighs 157 pounds. documented in this encounter Plan of Treatment Not on file documented as of this encounter Results * TSH Rfx On Abnormal To Free T4 (03/15/2023 10:03 AM EDT) TSH 2.880 0.450 - 4.500 uIU/mL [facility] Blood Structure of right upper limb / Unknown 03/15/2023 10:03 AM EDT 03/16/2023 Comment:Blood Release to bhavin Alberts [facility] ([facility]) - 03/16/2023 9:07 AM EDT Performed at: ??01 - [facility] [address], [place], [place] ??[id number] Mercury Washer: Jacob Whaley PhD, Phone: ??[phone] us Maria A Vivek Soria CONTINUOUS PROCESS MACHINE OPERATOR LAB BLOOD ORDERABLES Final Result [facility] ([facility]) [address] [place] [address], [facility] [address] [place] [address], [place] [phone] * (ABNORMAL) Comprehensive Metabolic Panel (03/15/2023 10:03 [...] AM EDT Performed at: ??01 - [facility] [place] [address] [place], [place] ??[id number] Mercury Washer: Jacob Whaley PhD, Phone: ??[phone] Maria A Doyle Yang CONTINUOUS PROCESS MACHINE OPERATOR LAB BLOOD ORDERABLES Final Result [facility] ([facility]) [address] [place] [address], [facility] [address] [place] [address], * (ABNORMAL) CBC & Differential (03/15/2023 10:03 [...] 10:03 AM EDT 03/16/2023 Comment:Blood Release to [facility] Narrative [facility] (AMBULATORY) - 03/16/2023 9:07 AM EDT Performed at: ??01 - [facility] [address] ??[id number] Mercury Washer: Jacob Whaley PhD, Phone: ??[phone] Maria A Soria APRN LAB BLOOD ORDERABLES Final Result Performing Organization Address City/[facility]/ZIP Co de Phone Number [facility] ([facility]BUL[facility]ORY) [address] [place] [address], [place] [phone] [facility] [address] [place] [address], [place] [phone] * (ABNORMAL) Lipid Panel (03/15/2023 10:03 AM [...] 10:03 AM EDT 03/16/2023 Comment:Blood Release to [facility] Narrative [facility] ([facility]) - 03/16/2023 9:07 AM EDT Performed at: ??01 - [facility] [address] ??[id number] Mercury Washer: Jacob Whaley PhD, Phone: ??[phone] Maria A Soria APRN LAB BLOOD ORDERABLES Final Result Performing Organization Address City/[facility]/ZIP Co de Phone Number [facility] ([facility]) [address] [place] [address], [place] [phone] [facility] [address] [place] [address], * (ABNORMAL) Hemoglobin A1c (03/15/2023 10:03 AM EDT) Hemoglobin A1C 5.9(H) 4.8 - 5.6 % [facility] Comment: ? Prediabetes: 5.7 - 6.4 ? Diabetes: >6.4 ? Glycemic control for adults with diabetes: <7.0 Blood Structure of right upper limb / Unknown 03/15/2023 10:03 AM EDT 03/16/2023 Comment:Blood Release to [facility] michell Alberts [facility] (AMBULATORY) - 03/16/2023 9:07 AM EDT Performed at: ??01 - [address] ??[id number] Mercury Washer: Jacob Whaley PhD, Phone: ??[phone] Maria A Soria APRN LAB BLOOD ORDERABLES Final Result [facility] (AMBULATORY) [address] [place] [address], [place] [phone] [facility] [address] [place] [address], [place] [phone] documented in this encounter Visit Diagnoses Diagnosis Essential hypertension- Primary Unspecified essential hypertension ESRD (end stage renal disease) on dialysis End stage renal disease Mixed hyperlipidemia History of bariatric surgery Bariatric surgery status History of drug abuse Other, mixed, or unspecified nondependent drug abuse, in remission Persistent depressive disorder Chronic kidney disease-mineral and bone disorder Type 1 diabetes mellitus with hyperglycemia Encounter to establish care Recurrent UTI- Primary Urinary tract infection, site [...] of the cervix documented in this encounter Care Teams Fishing Tool Operator Relationship Specialty Start Date End Date Maria A Soria, CONTINUOUS PROCESS MACHINE OPERATOR [address] [place] [phone] PCP - General Family Medicine 02/15/23 documented as of this encounter
--- OUTSIDE RECORDS SUMMARY | 2024-05-30 08:33 | XMS_ITS | Encounter Summary ---
[facility] Organization [facility] Address [address] [place] [address] Care Team Providers Care Criminal Legal Assistant Name Role Phone Jaquan Conley MD Primary Care Provider [phone] Reason for Visit * Reason Comments Leg Injury Encounter Details Date Type Department Care Team (Late st Contact Info) Description 10/28/2020 7:40 PM EDT - 10/28/2020 8:47 PM EDT Emergency [facility] [address] [place] [phone] Krissy Bowman MD Contusion of left ankle, initial encounter (Primary Dx) Discharge Disposition: Home or Self [...] Sign Reading Time Taken Comments Blood Pressure 160/94 10/28/2020 7:35 PM EDT Pulse 85 10/28/2020 7:35 PM EDT Temperature 37.2 ??C (99 ??F) 10/28/2020 7:35 PM EDT Respiratory Rate 18 10/28/2020 7:35 PM EDT Oxygen Saturation 100% 10/28/2020 7:35 PM EDT Inhaled Oxygen Concentration - - Weight 76 kg (167 lb 9.6 oz) 10/28/2020 7:35 PM EDT Height 165.1 cm (5' 5 ) 10/28/2020 7:35 PM EDT Body Mass Index 27.89 10/28/2020 7:35 PM EDT documented in this encounter Discharge Instructions * Attachments The following attachments cannot be sent through Care Everywhere. * Contusion Pkaf-jk-Eloy (Uzbek) documented in this encounter Medications at Time [...] 240 tablet 1 06/14/2018 Vitamin D, Ergocalciferol, 96390 units capsule 50,000 Int'l Units. 06/03/2020 amLODIPine-benazepr [...] as of this encounter ED Notes * Pearl Wakefield APRN - 10/28/2020 7:51 PM EDT Subjective History of Present Illness Is a 30-year-old female comes in today complaining of left ankle pain. She reports she dropped a bottle of shampoo on her leg 2 days ago and has had pain in that area since that time. She is able to bear weight. Review of Systems Constitutional: Negative. HENT: Negative. Eyes: Negative. Respiratory: Negative. Cardiovascular: Negative. Gastrointestinal: Negative. Genitourinary: Negative. Musculoskeletal: Positive for arthralgias. Skin: Negative. Neurological: Negative. Psychiatric/Behavioral: Negative. Past 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: Diagnosis Date ??? Allergic [...] ??? 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 INDUCED 2006 [facility] History reviewed. No pertinent family history. Social [...] Exam Vitals and nursing note reviewed. Constitutional: Appearance: Normal appearance. She is normal weight. Neurological: Mental Status: She is alert. GEN: No acute distress Head: Normocephalic, atraumatic Eyes: Pupils equal round reactive to light ENT: Posterior pharynx normal in appearance, oral mucosa is moist Chest: Nontender to palpation Cardiovascular: Regular rate Lungs: Clear to auscultation bilaterally Abdomen: Soft, nontender, nondistended, no peritoneal signs Extremities: No edema, normal appearance, tender over left ankle, limited range of motion due to pain. Neuro: GCS 15 Psych: Mood and affect are appropriate Procedures ED Course MDM Number of Diagnoses or Management Options Amount and/or Complexity of Data Reviewed Tests in the radiology section of CPT??: ordered and reviewed Review and summarize past medical records: yes Discuss the patient with other providers: yes Independent visualization of images, tracings, or specimens: yes Risk of Complications, Morbidity, and/or Mortality Presenting problems: low Diagnostic procedures: low Management options: low Final diagnoses: Contusion of left ankle, initial encounter ED Disposition ED Disposition ED Disposition Condition Comment Discharge Stable Jaquan Conley MD [address] [place] [id number] Schedule an appointment as soon as possible for a visit Medication List No changes were made to your prescriptions during this visit. Pearl Wakefield APRN 10/28/202042 Cosigned by Krissy Bowman MD at 10/28/2020 11:01 PM EDT Associated attestation - Krissy Bowman MD - 10/28/2020 11:01 PM EDT For this patient encounter, I reviewed the GRAPHIC ARTS TECHNICIAN or PA documentation, treatment plan, and medical decision making. Krissy Bowman MD 10/28/2020 23:01 EDT documented in this encounter Plan of Treatment Not on file documented as of this encounter Procedures Procedure Name Priority Date/Time Associated Diagnosis Comments XR ANKLE 3+ VW LEFT STAT 10/28/2020 8 :46 PM EDT documented in this encounter Results * XR Ankle 3+ View Left (10/28/2020 8:46 PM EDT) Anatomical Region Laterality Modality Lower Extremities, Ankle Left Radiogr aphic Imaging 10/29/2020 11:1 8 AM EDT Impressions 10/29/2020 12:41 PM EDT No acute fracture. Images were reviewed, interpreted, and dictated by Dr. Brittny Lacey M.D. Transcribed by Dang Love PA-C. This report was finalized on 10/29/2020 12:41 PM by Brittny Lacey M.D.. Narrative 10/29/2020 12:41 PM EDT PROCEDURE: XR ANKLE 3+ VW LEFT- History: pain; S90.02XA-Contusion of left ankle, initial encounter COMPARISON:January 2019. FINDINGS: ??A 3 view exam demonstrates no acute fracture or dislocation. There is cortical thickening of the mid fibular diaphysis, unchanged and likely an incidental finding. The joint spaces are preserved. No soft tissue abnormality is seen. Procedure Note Brittny Lacey MD - 10/29/2020 PROCEDURE: XR ANKLE 3+ VW LEFT- History: pain; S90.02XA-Contusion of left ankle, initial encounter COMPARISON:January 2019. FINDINGS: A 3 view exam demonstrates no acute fracture or dislocation. There is cortical thickening of the mid fibular diaphysis, unchanged and likely an incidental finding. The joint spaces are preserved. No soft tissue abnormality is seen. IMPRESSION: No acute fracture. Images were reviewed, interpreted, and dictated by Dr. Brittny Lacey M.D. Transcribed by Dang Love PA-C. This report was finalized on 10/29/2020 12:41 PM by Brittny Lacey M.D.. Pearl Wakefield DOWEL PIN WORKER IMG DIAGNOSTIC IMAGING OR DERABLES Final Result documented in this encounter Visit Diagnoses Diagnosis Contusion of left ankle, initial encounter- Primary documented in this encounter Care Teams Criminal Legal Assistant Relationship Specialty Start Date End Date Jaquan Conley MD [address] [place] [address] PCP - General Internal Medicine 04/23/20 02/14/23 documented as of this encounter
--- OUTSIDE RECORDS SUMMARY | 2024-05-30 08:33 | XMS_ITS | Encounter Summary ---
Author Organization [facility] Address [address] [place] [address] Care Team Providers Care Multimedia Authoring Specialist Name Role Phone Jaquan Conley MD Primary Care Provider [phone] Encounter Details Date Type Department Care Team (Late st Contact Info) Description 09/16/2020 12:40 PM EST Lab [facility] [address] [place] [address] Chronic kidney disease, stage V; Vitamin D deficiency Social History Tobacco Use [...] Associated Diagnosis Comments URINALYSIS, MICROSCOPIC ONLY Routine 09/16/2020 1:10 PM EST Chronic kidney disease, stage V CBC WITH AUTO DIFFERENTIAL Routine 09/16/2020 1:10 PM EST Chronic kidney disease, stage V PROTEIN, URINE, RANDOM Routine 09/16/2020 1:10 PM EST Chronic kidney disease, stage V CREATININE URINE RANDOM (KIDNEY FUNCTION) GFR COMPONENT Routine 09/16/2020 1:10 PM EST Chronic kidney disease, stage V VITAMIN D,25-HYDROXY Routine 09/16/2020 1:10 PM EST Vitamin D deficiency URINALYSIS AND MICROSCOPIC Routine 09/16/2020 1:10 PM EST Chronic kidney disease, stage V URINALYSIS WITHOUT MICROSCOPIC (NO CULTURE) Routine 09/16/2020 1:10 PM EST Chronic kidney disease, stage V CBC AND DIFFERENTIAL Routine 09/16/2020 1:10 PM EST Chronic kidney disease, stage V PTH, INTACT Routine 09/16/2020 1:10 PM EST Vitamin D deficiency RENAL FUNCTION PANEL Routine 09/16/2020 1:10 PM EST Chronic kidney disease, stage V documented in this encounter Results * (ABNORMAL) Urinalysis, Microscopic Only - Urine, Clean Catch (09/16/2020 1:10 PM EST) RBC, UA 6-12(A) None Seen, 0-2 /HPF 09/16/2020 11:12 PM [facility] WBC, UA 6-12(A) None Seen, 0-2 /HPF 09/16/2020 11:12 PM [facility] Bacteria, UA 4+(A) None Seen /HPF 09/16/2020 11:12 PM [facility] Squamous Epithelial Cells, UA 13-20(A) None Seen, 0-2 /HPF 09/16/2020 11:12 PM [facility] Hyaline Casts, UA 3-6 None Seen /LPF 09/16/2020 11:12 PM [facility] Methodology Automated Microscopy 09/16/2020 11:12 PM [facility] Urine Urine specimen collection, clean catch / Unknown Collection / Unknown 09/16/2020 1:10 PM EST 09/16/2020 4:26 PM EST Adina Sands MD URINE ORDERABLES Final Re sult [facility]
[address] [place] [address], * (ABNORMAL) Urinalysis without microscopic (no culture) - Urine, Clean Catch (09/16/2020 1:10 PM EST) Color, UA Other(A) Yellow, Straw 09/16/2020 11:20 PM [facility] Appearance, UA Cloudy(A) Clear 09/16/2020 11:20 PM [facility] pH, UA 6.0 5.0 - 8.0 09/16/2020 11:20 PM [facility] Specific [place], UA 1.013 1.005 - 1.030 09/16/2020 11:20 PM [facility] Glucose, UA Negative Negative 09/16/2020 11:20 PM [facility] Ketones, UA Negative Negative 09/16/2020 11:20 PM [facility] Bilirubin, UA Negative Negative 09/16/2020 11:20 PM [facility] Blood, UA Large (3+)(A) Negative 09/16/2020 11:20 PM [facility] Protein, UA >=300 mg/dL (3+)(A) Negative 09/16/2020 11:20 PM [facility] Leuk Esterase, UA Negative Negative 09/16/2020 11:20 PM [facility] Nitrite, UA Negative Negative 09/16/2020 11:20 PM [facility] Urobilinogen, UA 0.2 E.U./dL 0.2 - 1.0 E.U./dL 09/16/2020 11:20 PM [facility] Urine Urine specimen collection, clean catch / Unknown Collection / Unknown 09/16/2020 1:10 PM EST 09/16/2020 4:26 PM EST Adina Sands MD URINE ORDERABLES Final Re sult [facility]
[address] [place] [address], * (ABNORMAL) CBC Auto Differential (09/16/2020 1:10 PM EST) WBC 8.49 3.40 - 10.80 10*3/mm3 09/16/2020 6:15 PM [facility] RBC 4.28 3.77 - 5.28 10*6/mm3 09/16/2020 6:15 PM [facility] Hemoglobin 13.5 12.0 - 15.9 g/dL 09/16/2020 6:15 PM [facility] Hematocrit 40.3 34.0 - 46.6 % 09/16/2020 6:15 PM [facility] MCV 94.2 79.0 - 97.0 fL 09/16/2020 6:15 PM [facility] MCH 31.5 26.6 - 33.0 pg 09/16/2020 6:15 PM [facility] MCHC 33.5 31.5 - 35.7 g/dL 09/16/2020 6:15 PM [facility] RDW 12.0(L) 12.3 - 15.4 % 09/16/2020 6:15 PM [facility] RDW-SD 41.5 37.0 - 54.0 fl 09/16/2020 6:15 PM [facility] MPV 13.9(H) 6.0 - 12.0 fL 09/16/2020 6:15 PM [facility] Platelets 214 140 - 450 10*3/mm3 09/16/2020 6:15 PM EST [facility] Neutrophil % 62.6 42.7 - 76.0 % 09/16/2020 6:15 PM EST [facility] Lymphocyte % 28.4 19.6 - 45.3 % 09/16/2020 6:15 PM EST [facility] Monocyte % 4.8(L) 5.0 - 12.0 % 09/16/2020 6:15 PM EST [facility] Eosinophil % 3.3 0.3 - 6.2 % 09/16/2020 6:15 PM EST [facility] Basophil % 0.5 0.0 - 1.5 % 09/16/2020 6:15 PM EST [facility] Neutrophils, Absolute 5.32 1.70 - 7.00 10*3/mm3 09/16/2020 6:15 PM [facility] Lymphocytes, Absolute 2.41 0.70 - 3.10 10*3/mm3 09/16/2020 6:15 PM [facility] Monocytes, Absolute 0.41 0.10 - 0.90 10*3/mm3 09/16/2020 6:15 PM EST [facility] Eosinophils, Absolute 0.28 0.00 - 0.40 10*3/mm3 09/16/2020 6:15 PM [facility] Basophils, Absolute 0.04 0.00 - 0.20 10*3/mm3 09/16/2020 6:15 PM [facility] Blood Venipuncture / Unknown 09/16/2020 1:10 PM EST 09/16/2020 1:54 PM EST us Adina Sands MD LAB BLOOD ORDERABLES Amy foreman Result [facility]
[address] [place] [address], * Vitamin D 25 Hydroxy (09/16/2020 1:10 PM EST) 25 Hydroxy, Vitamin D 22.9 ng/ml 09/16/2020 7:33 PM [facility] Blood Venipuncture / Unknown 09/16/2020 1:10 PM EST 09/16/2020 1:54 PM EST [facility] - 09/16/2020 7:33 PM EST Reference Range for Total Vitamin D 25(OH) Deficiency <20.0 ng/mL Insufficiency 21-29 ng/mL Sufficiency 30-100 ng/mL Toxicity >100 ng/ml Results may be falsely increased if patient taking Biotin. Adina Bridgesiq LAB BLOOD ORDERABLES Amy foreman Result [facility]
[address] [place] [address], * (ABNORMAL) Renal Function Panel (09/16/2020 1:10 PM EST) Glucose 107(H) 65 - 99 mg/dL 09/16/2020 6:39 PM [facility] BUN 34(H) 6 - 20 mg/dL 09/16/2020 6:39 PM [facility] Creatinine 3.08(H) 0.57 - 1.00 mg/dL 09/16/2020 6:39 PM [facility] Sodium 139 136 - 145 mmol/L 09/16/2020 6:39 PM [facility] Potassium 4.1 3.5 - 5.2 mmol/L 09/16/2020 6:39 PM [facility] Chloride 108(H) 98 - 107 mmol/L 09/16/2020 6:39 PM [facility] CO2 19.0(L) 22.0 - 29.0 mmol/L 09/16/2020 6:39 PM [facility] Calcium 8.7 8.6 - 10.5 mg/dL 09/16/2020 6:39 PM [facility] Albumin 4.00 3.50 - 5.20 g/dL 09/16/2020 6:39 PM EST [facility] Phosphorus 4.0 2.5 - 4.5 mg/dL 09/16/2020 6:39 PM EST [facility] Anion Gap 12.0 5.0 - 15.0 mmol/L 09/16/2020 6:39 PM EST [facility] BUN/Creatinine Ratio 11.0 7.0 - 25.0 09/16/2020 6:39 PM EST [facility] eGFR Non Amer 18(L) >60 mL/min/1.7 3 09/16/2020 6:39 PM EST [facility] Blood Venipuncture / Unknown 09/16/2020 1:10 PM EST 09/16/2020 1:53 PM EST [facility] - 09/16/2020 6:39 PM EST GFR Normal >60 Chronic Kidney Disease <60 Kidney Failure <15 Adina Sands MD LAB BLOOD ORDERABLES Amy l Result Performing Organization Address [facility]/ZIP Co de Phone Number [facility]
[address] [place] [address], * Protein, Urine, Random - Urine, Clean Catch (09/16/2020 1:10 PM EST) Total Protein, Urine 225.0 mg/dL 09/16/2020 11:47 PM EST [facility] Urine Urine specimen collection, clean catch / Unknown Collection / Unknown 09/16/2020 1:10 PM EST 09/16/2020 4:26 PM EST [facility] - 09/16/2020 11:47 PM EST Reference intervals for random urine have not been established. Clinical usage is dependent upon physician's interpretation in combination with other laboratory tests. Adina aSnds MD URINE ORDERABLES Final Re sult Performing Organization Address [facility]/ZIP Co de Phone Number [facility]
[address] [place] [address], * (ABNORMAL) PTH, Intact (09/16/2020 1:10 PM EST) PTH, Intact 255.0(H) 15.0 - 65.0 pg/mL 09/16/2020 7:07 PM EST [facility] Blood Venipuncture / Unknown 09/16/2020 1:10 PM EST 09/16/2020 1:55 PM EST [facility] - 09/16/2020 7:07 PM EST Results may be falsely decreased if patient taking Biotin. Adina Sands MD LAB BLOOD ORDERABLES Amy l Result Performing Organization Address City/[facility]/ZIP Co de Phone Number [facility]
[address] [place] [address], * Creatinine, Urine, Random - Urine, Clean Catch (09/16/2020 1:10 PM EST) Creatinine, Urine 75.8 mg/dL 09/16/2020 11:34 PM EST [facility] Urine Urine specimen collection, clean catch / Unknown Collection / Unknown 09/16/2020 1:10 PM EST 09/16/2020 4:26 PM EST [facility] - 09/16/2020 11:34 PM EST Reference intervals for random urine have not been established. Clinical usage is dependent upon physician's interpretation in combination with other laboratory tests. Adina Sands MD URINE ORDERABLES Final Re sult [facility]
[address] [place] [address], documented in this encounter Visit Diagnoses Diagnosis Chronic kidney disease, stage V Chronic kidney disease, Stage V Vitamin D deficiency documented in this encounter Care Teams Multimedia Authoring Specialist Relationship Specialty Start Date End Date Jaquan Conley MD [address] [place] [id number] PCP - General Internal Medicine 04/23/20 02/14/23 documented as of this encounter
--- OUTSIDE RECORDS SUMMARY | 2024-05-30 08:33 | XMS_ITS | Encounter Summary ---
Author Organization [facility] Address [address] [place] [address] Care Team Providers Care Sports Management Internship Name Role Phone Jaquan Conley MD Primary Care Provider [phone] Reason for Visit * Reason Comments Shoulder Pain Encounter Details Date Type Department Care Team (Late st Contact Info) Description 08/16/2020 1:37 PM EST - 08/16/2020 2:33 PM EST Emergency [facility] [address] [place] [id number] Jaquan Arenas, DO Strain of latissimus dorsi muscle, initial encounter (Primary Dx) Discharge Disposition: Home [...] Sign Reading Time Taken Comments Blood Pressure 142/88 08/16/2020 1:35 PM EST Pulse 83 08/16/2020 1:35 PM EST Temperature 37.1 ??C (98.7 ??F) 08/16/2020 1:35 PM ES T Respiratory Rate 16 08/16/2020 2:32 PM EST Oxygen Saturation 99% 08/16/2020 1:35 PM EST Inhaled Oxygen Concentration - - Weight 81.6 kg (179 lb 12.8 oz) 08/16/2020 1:35 PM EST Height 165.1 cm (5' 5 ) 08/16/2020 1:35 PM EST Body Mass Index 29.92 08/16/2020 1:35 PM EST documented in this encounter Discharge Instructions * Attachments The following attachments cannot be sent through Care Everywhere. * Muscle Strain ([place]ican) documented in this encounter Medications at Time [...] 240 tablet 1 06/14/2018 Vitamin D, Ergocalciferol, 61327 units capsule 50,000 Int'l Units. 06/03/2020 amLODIPine-benazepr [...] Needed for Nausea or Vomiting. 20 tablet 05/26/2020 09/25/19 21 promethazine-dextro methorphan (PROMETHAZINE-DM) 6.25-15 MG/5ML syrup Take 5 mL by mouth At Night As Needed for Cough. 60 mL 05/03/2019 02/16/20 23 traMADol (ULTRAM) 50 MG tablet Take 1 tablet by mouth Every 6 (Six) Hours As Needed for Moderate Pain or Severe Pain . 6 tablet 11/02/2018 02/16/20 23 documented as of this encounter ED Notes * Maikol Quiroz Jr., JOHN - 08/16/2020 1:56 PM EST Images from the original note were not included. Subjective 29-year-old female presents to the emergency department with right scapula pain, she has been chopping wood for several days and now has pain, she experienced the pain when she was chopping wood, sheis now having difficulty especially with lying down and sleeping because of the pain. History provided by: Patient freelance interpreter/translator used: No Review of Systems Musculoskeletal: Right scapula All other systems reviewed and are negative. [...] ??? 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 INDUCED 2006 [facility] History reviewed. No pertinent family history. Social [...] and Sexual Activity ??? Alcohol use: No Frequency: Never ??? Drug use: No ??? Sexual activity: Yes control/protection: Pill, None, Surgical Social History Narrative Merged History Encounter Objective Physical Exam Vitals signs and nursing note reviewed. Constitutional: Appearance: She is well-developed. HENT: Head: Normocephalic. Neck: Musculoskeletal: Normal range of motion and neck supple. Cardiovascular: Rate and Rhythm: Normal rate and regular rhythm. Pulmonary: Effort: Pulmonary effort is normal. Breath sounds: Normal breath sounds. Musculoskeletal: Arms: Comments: Tender palpation right latissimus Skin: General: Skin is warm and dry. Neurological: Mental Status: She is alert and oriented to person, place, and time. Deep Tendon Reflexes: Reflexes are normal and symmetric. Procedures ED Course MDM Number of Diagnoses or Management Options Strain of latissimus dorsi muscle, initial encounter: new and requires workup Risk of Complications, Morbidity, and/or Mortality Presenting problems: minimal Diagnostic procedures: minimal Management options: minimal Patient Progress Patient progress: stable Final diagnoses: Strain of latissimus dorsi muscle, initial encounter Maikol Quiroz Jr., PA-C 08/16/20 1401 Cosigned by Jaquan Arenas DO at 08/16/2020 2:17 PM EST Associated attestation - Jaquan Arenas DO - 08/16/2020 2:17 PM EST For this patient encounter, I reviewed the HAND CANDY MOLDER or PA documentation, treatment plan, and medical decision making. Jaquan Arenas DO 08/16/2020 14:17 EST documented in this encounter Plan of Treatment Not on file documented as of this encounter Visit Diagnoses Diagnosis Strain of latissimus dorsi muscle, initial encounter- Primary documented in this encounter Care Teams Sports Management Internship Relationship Specialty Start Date End Date Jaquan Conley MD [address] [place], [place] [id number] PCP - General Internal Medicine 04/23/20 02/14/23 documented as of this encounter
--- OUTSIDE RECORDS SUMMARY | 2024-05-30 08:33 | XMS_ITS | Encounter Summary ---
Author Organization [facility] Address [address] [place] [address] Care Team Providers Care Manufacturing Associate Name Role Phone Jaquan Conley MD Primary Care Provider [phone] Encounter Details Date Type Department Care Team (Late st Contact Info) Description 06/18/2021 11:45 AM EST Lab [facility] [address] [place] [address] Anemia, unspecified type; CKD stage [...] Associated Diagnosis Comments URINALYSIS, MICROSCOPIC ONLY Routine 06/18/2021 11:50 AM EST Anemia, unspecified type CKD stage G5/A3, GFR <15 and albumin creatinine ratio >300 mg/g CBC WITH AUTO DIFFERENTIAL Routine 06/18/2021 11:50 AM EST Anemia, unspecified type CKD stage G5/A3, GFR <15 and albumin creatinine ratio >300 mg/g IRON PROFILEC Routine 06/18/2021 11:50 AM EST Anemia, unspecified type CKD stage G5/A3, GFR <15 and albumin creatinine ratio >300 mg/g URINALYSIS AND MICROSCOPIC Routine 06/18/2021 11:50 AM EST Anemia, unspecified type CKD stage G5/A3, GFR <15 and albumin creatinine ratio >300 mg/g URINALYSIS WITHOUT MICROSCOPIC (NO CULTURE) Routine 06/18/2021 11:50 AM EST Anemia, unspecified type CKD stage G5/A3, GFR <15 and albumin creatinine ratio >300 mg/g CBC AND DIFFERENTIAL Routine 06/18/2021 11:50 AM EST Anemia, unspecified type CKD stage G5/A3, GFR <15 and albumin creatinine ratio >300 mg/g FERRITIN Routine 06/18/2021 11:50 AM EST Anemia, unspecified type CKD stage G5/A3, GFR <15 and albumin creatinine ratio >300 mg/g RENAL FUNCTION PANEL Routine 06/18/2021 11:50 AM EST Anemia, unspecified type CKD stage G5/A3, GFR <15 and albumin creatinine ratio >300 mg/g documented in this encounter Results * (ABNORMAL) CBC Auto Differential (06/18/2021 11:50 AM EST) Pathologist [facility] WBC 5.83 3.40 - 10.80 10*3/mm3 06/18/2021 6:07 PM EST [facility] RBC 3.87 3.77 - 5.28 10*6/mm3 06/18/2021 6:07 PM EST [facility] Hemoglobin 12.3 12.0 - 15.9 g/dL 06/18/2021 6:07 PM EST [facility] Hematocrit 36.2 34.0 - 46.6 % 06/18/2021 6:07 PM [facility] MCV 93.5 79.0 - 97.0 fL 06/18/2021 6:07 PM [facility] MCH 31.8 26.6 - 33.0 pg 06/18/2021 6:07 PM [facility] MCHC 34.0 31.5 - 35.7 g/dL 06/18/2021 6:07 PM [facility] RDW 12.0(L) 12.3 - 15.4 % 06/18/2021 6:07 PM [facility] RDW-SD 41.0 37.0 - 54.0 fl 06/18/2021 6:07 PM [facility] MPV 13.5(H) 6.0 - 12.0 fL 06/18/2021 6:07 PM [facility] Platelets 186 140 - 450 10*3/mm3 06/18/2021 6:07 PM [facility] Neutrophil % 51.0 42.7 - 76.0 % 06/18/2021 6:07 PM [facility] Lymphocyte % 38.3 19.6 - 45.3 % 06/18/2021 6:07 PM [facility] Monocyte % 5.3 5.0 - 12.0 % 06/18/2021 6:07 PM [facility] Eosinophil % 4.5 0.3 - 6.2 % 06/18/2021 6:07 PM [facility] Basophil % 0.7 0.0 - 1.5 % 06/18/2021 6:07 PM [facility] Neutrophils, Absolute 2.98 1.70 - 7.00 10*3/mm3 06/18/2021 6:07 PM [facility] Lymphocytes, Absolute 2.23 0.70 - 3.10 10*3/mm3 06/18/2021 6:07 PM [facility] Monocytes, Absolute 0.31 0.10 - 0.90 10*3/mm3 06/18/2021 6:07 PM [facility] Eosinophils, Absolute 0.26 0.00 - 0.40 10*3/mm3 06/18/2021 6:07 PM EST [facility] Basophils, Absolute 0.04 0.00 - 0.20 10*3/mm3 06/18/2021 6:07 PM EST [facility] Blood Venipuncture / Unknown 06/18/2021 11:50 AM EST 06/18/2021 12:26 PM EST Adina Sands MD LAB BLOOD ORDERABLES Amy l Result [facility]
[address] [place] [address], * (ABNORMAL) Urinalysis, Microscopic Only - Urine, Clean Catch (06/18/2021 11:50 AM EST) RBC, UA 0-2 None Seen, 0-2 /HPF 06/18/2021 7:18 PM [facility] WBC, UA 3-5(A) None Seen, 0-2 /HPF 06/18/2021 7:18 PM [facility] Bacteria, UA 2+(A) None Seen /HPF 06/18/2021 7:18 PM [facility] Squamous Epithelial Cells, UA 7-12(A) None Seen, 0-2 /HPF 06/18/2021 7:18 PM [facility] Hyaline Casts, UA 0-2 None Seen /LPF 06/18/2021 7:18 PM [facility] Methodology Manual Light Microscopy 06/18/2021 7:18 PM [facility] Urine Urine specimen obtained by clean catch procedure / Unknown Collection / Unknown 06/18/2021 11:50 AM EST 06/18/2021 12:25 PM EST us Adina Sands MD URINE ORDERABLES Final Re sult [facility]
[address] [place] [address], * (ABNORMAL) Urinalysis without microscopic (no culture) - Urine, Clean Catch (06/18/2021 11:50 AM EST) Color, UA Yellow Yellow, Straw 06/18/2021 6:38 PM [facility] Appearance, UA Clear Clear 06/18/2021 6:38 PM [facility] pH, UA 5.5 5.0 - 8.0 06/18/2021 6:38 PM [facility] Specific [place], UA 1.012 1.005 - 1.030 06/18/2021 6:38 PM [facility] Glucose, UA Negative Negative 06/18/2021 6:38 PM [facility] Ketones, UA Negative Negative 06/18/2021 6:38 PM [facility] Bilirubin, UA Negative Negative 06/18/2021 6:38 PM [facility] Blood, UA Moderate (2+)(A) Negative 06/18/2021 6:38 PM [facility] Protein, UA 100 mg/dL (2+)(A) Negative 06/18/2021 6:38 PM [facility] Leuk Esterase, UA Negative Negative 06/18/2021 6:38 PM [facility] Nitrite, UA Negative Negative 06/18/2021 6:38 PM [facility] Urobilinogen, UA 0.2 E.U./dL 0.2 - 1.0 E.U./dL 06/18/2021 6:38 PM [facility] Urine Urine specimen obtained by clean catch procedure / Unknown Collection / Unknown 06/18/2021 11:50 AM EST 06/18/2021 12:25 PM EST Adina Sands MD URINE ORDERABLES Final Re sult [facility]
[address] [place] [address], * (ABNORMAL) Ferritin (06/18/2021 11:50 AM EST) [facility] Ferritin 231.00(H) 13.00 - 150.00 ng/mL 06/18/2021 6:35 PM [facility] Blood Venipuncture / Unknown 06/18/2021 11:50 AM EST 06/18/2021 12:26 PM EST [facility] - 06/18/2021 6:35 PM EST Results may be falsely decreased if patient taking Biotin. Adina Bridgesiq LAB BLOOD ORDERABLES Amy foreman Result [facility]
[address] [place] [address], * (ABNORMAL) Renal Function Panel (06/18/2021 11:50 AM EST) [facility] Glucose 197(H) 65 - 99 mg/dL 06/18/2021 7:06 PM [facility] BUN 41(H) 6 - 20 mg/dL 06/18/2021 7:06 PM [facility] Creatinine 3.69(H) 0.57 - 1.00 mg/dL 06/18/2021 7:06 PM [facility] Sodium 139 136 - 145 mmol/L 06/18/2021 7:06 PM [facility] Potassium 5.4(H) 3.5 - 5.2 mmol/L 06/18/2021 7:06 PM [facility] Chloride 107 98 - 107 mmol/L 06/18/2021 7:06 PM [facility] CO2 18.7(L) 22.0 - 29.0 mmol/L 06/18/2021 7:06 PM [facility] Calcium 8.5(L) 8.6 - 10.5 mg/dL 06/18/2021 7:06 PM [facility] Albumin 4.10 3.50 - 5.20 g/dL 06/18/2021 7:06 PM [facility] Phosphorus 5.0(H) 2.5 - 4.5 mg/dL 06/18/2021 7:06 PM [facility] Anion Gap 13.3 5.0 - 15.0 mmol/L 06/18/2021 7:06 PM [facility] BUN/Creatinine Ratio 11.1 7.0 - 25.0 06/18/2021 7:06 PM [facility] eGFR Non Amer 14(L) >60 mL/min/1.7 3 06/18/2021 7:06 PM [facility] Comment:<15 Indicative of ki dney failure. eGFR Amer 06/18/2021 7:06 PM [facility] Comment:<15 Indicative of ki dney failure. Blood Venipuncture / Unknown 06/18/2021 11:50 AM EST 06/18/2021 12:26 PM EST Narrative [facility] - 06/18/2021 7:06 PM EST GFR Normal >60 Chronic Kidney Disease <60 Kidney Failure <15 Adina Sands MD LAB BLOOD ORDERABLES Amy l Result [facility]
[address] [place] [address], * Iron Profile (06/18/2021 11:50 AM EST) Iron 90 37 - 145 mcg/dL 06/18/2021 7:06 PM EST [facility] Iron Saturation (TSAT) 29 20 - 50 % 06/18/2021 7:06 PM [facility] Transferrin 208 200 - 360 mg/dL 06/18/2021 7:06 PM [facility] TIBC 310 298 - 536 mcg/dL 06/18/2021 7:06 PM EST [facility] Blood Venipuncture / Unknown 06/18/2021 11:50 AM EST 06/18/2021 12:26 PM EST Adina Sands MD LAB BLOOD ORDERABLES Amy foreman Result [facility]
[address] [place] [address], documented in this encounter Visit Diagnoses Diagnosis Anemia, unspecified type CKD stage G5/A3, GFR <15 and albumin creatinine ratio >300 mg/g documented in this encounter Care Teams Manufacturing Associate Relationship Specialty Start Date End Date Jaquan Conley MD [address] [place] [address] PCP - General Internal Medicine 04/23/20 02/14/23 documented as of this encounter
--- OUTSIDE RECORDS SUMMARY | 2024-05-30 08:33 | XMS_ITS | Encounter Summary ---
Author Organization [facility] Address [address] [place] [address] Care Team Providers Care Lithographic Plate Maker Name Role Phone Jaquan Conley MD Primary Care Provider [phone] Encounter Details Date Type Department Care Team (Late st Contact Info) Description 07/14/2020 2:25 PM EST Lab [facility] [address] [place] [address] Chronic kidney disease, stage V; Diabetes mellitus without complication; Anemia, unspecified type Social History Tobacco Use Types Packs/Day Years Used Date Smoking Tobacco: Some Days Cigarettes 0.5 10 Smokeless Tobacco: Never Alcohol Use Standard Drinks/Week Comments No 0 (1 standard drink = 0.6 oz pur e alcohol) AUDIT-C Answer Date Recorded Frequency of Alcohol Consumption Never 10/09/2018 Average Number of Drinks Not on file 019 Frequency of Binge Drinking Not on file 09/16 Comments No Sex and Gender Information Value Date Recorded Sex Assigned at Not on file Legal Sex Female 3:21 PM EDT Gender Identity Not on file Sexual Orientation Not on file documented as of this encounter Plan of Treatment Not on file documented as of this encounter Procedures Procedure Name Priority Date/Time Associated Diagnosis Comments URINALYSIS, MICROSCOPIC ONLY Routine 07/14/2020 2:52 PM EST Chronic kidney disease, stage V CBC WITH AUTO DIFFERENTIAL Routine 07/14/2020 2:52 PM EST Anemia, unspecified type IRON PROFILEC Routine 07/14/2020 2:52 PM EST Anemia, unspecified type PROTEIN, URINE, RANDOM Routine 07/14/2020 2:52 PM EST Diabetes mellitus without complication CREATININE URINE RANDOM (KIDNEY FUNCTION) GFR COMPONENT Routine 07/14/2020 2:52 PM EST Diabetes mellitus without complication URINALYSIS AND MICROSCOPIC Routine 07/14/2020 2:52 PM EST Chronic kidney disease, stage V URINALYSIS WITHOUT MICROSCOPIC (NO CULTURE) Routine 07/14/2020 2:52 PM EST Chronic kidney disease, stage V CBC AND DIFFERENTIAL Routine 07/14/2020 2:52 PM EST Anemia, unspecified type RENAL FUNCTION PANEL Routine 07/14/2020 2:52 PM EST Chronic kidney disease, stage V documented in this encounter Results * (ABNORMAL) Urinalysis, Microscopic Only - Urine, Clean Catch (07/14/2020 2:52 PM EST) RBC, UA 0-2 None Seen, 0-2 /HPF 07/14/2020 11:30 PM EST [facility] WBC, UA 13-20(A) None Seen, 0-2 /HPF 07/14/2020 11:30 PM EST [facility] Bacteria, UA 2+(A) None Seen /HPF 07/14/2020 11:30 PM EST [facility] Squamous Epithelial Cells, UA 0-2 None Seen, 0-2 /HPF 07/14/2020 11:30 PM EST [facility] Hyaline Casts, UA 0-2 None Seen /LPF 07/14/2020 11:30 PM EST [facility] Methodology Automated Microscopy 07/14/2020 11:30 PM EST [facility] Urine Urine specimen collection, clean catch / Unknown Collection / Unknown 07/14/2020 2:52 PM EST 07/14/2020 4:47 PM EST Adina Sands MD URINE ORDERABLES Final Re sult Performing Organization Address [facility] Co de Phone Number [facility]
[address] [place] [address], * (ABNORMAL) Urinalysis without microscopic (no culture) - Urine, Clean Catch (07/14/2020 2:52 PM EST) Color, UA Yellow Yellow, Straw 07/14/2020 11:00 PM [facility] Appearance, UA Clear Clear 07/14/2020 11:00 PM [facility] pH, UA 6.0 5.0 - 8.0 07/14/2020 11:00 PM [facility] Specific [place], UA 1.013 1.005 - 1.030 07/14/2020 11:00 PM [facility] Glucose, UA Negative Negative 07/14/2020 11:00 PM [facility] Ketones, UA Negative Negative 07/14/2020 11:00 PM [facility] Bilirubin, UA Negative Negative 07/14/2020 11:00 PM [facility] Blood, UA Trace(A) Negative 07/14/2020 11:00 PM [facility] Protein, UA >=300 mg/dL (3+)(A) Negative 07/14/2020 11:00 PM [facility] Leuk Esterase, UA Trace(A) Negative 07/14/2020 11:00 PM [facility] Nitrite, UA Negative Negative 07/14/2020 11:00 PM [facility] Urobilinogen, UA 0.2 E.U./dL 0.2 - 1.0 E.U./dL 07/14/2020 11:00 PM [facility] Urine Urine specimen collection, clean catch / Unknown Collection / Unknown 07/14/2020 2:52 PM EST 07/14/2020 4:47 PM EST Adina Sands MD URINE ORDERABLES Final Re sult Performing Organization Address [facility] Co de Phone Number [facility]
[address] [place] [address], * (ABNORMAL) CBC Auto Differential (07/14/2020 2:52 PM EST) WBC 6.81 3.40 - 10.80 10*3/mm3 07/14/2020 10:56 PM EST [facility] RBC 4.16 3.77 - 5.28 10*6/mm3 07/14/2020 10:56 PM [facility] Hemoglobin 13.1 12.0 - 15.9 g/dL 07/14/2020 10:56 PM [facility] Hematocrit 40.0 34.0 - 46.6 % 07/14/2020 10:56 PM [facility] MCV 96.2 79.0 - 97.0 fL 07/14/2020 10:56 PM [facility] MCH 31.5 26.6 - 33.0 pg 07/14/2020 10:56 PM [facility] MCHC 32.8 31.5 - 35.7 g/dL 07/14/2020 10:56 PM [facility] RDW 12.1(L) 12.3 - 15.4 % 07/14/2020 10:56 PM [facility] RDW-SD 43.2 37.0 - 54.0 fl 07/14/2020 10:56 PM [facility] MPV 13.8(H) 6.0 - 12.0 fL 07/14/2020 10:56 PM [facility] Platelets 198 140 - 450 10*3/mm3 07/14/2020 10:56 PM [facility] Neutrophil % 60.0 42.7 - 76.0 % 07/14/2020 10:56 PM [facility] Lymphocyte % 28.9 19.6 - 45.3 % 07/14/2020 10:56 PM [facility] Monocyte % 5.4 5.0 - 12.0 % 07/14/2020 10:56 PM [facility] Eosinophil % 5.0 0.3 - 6.2 % 07/14/2020 10:56 PM [facility] Basophil % 0.6 0.0 - 1.5 % 07/14/2020 10:56 PM [facility] Immature Grans % 0.1 0.0 - 0.5 % 07/14/2020 10:56 PM [facility] Neutrophils, Absolute 4.08 1.70 - 7.00 10*3/mm3 07/14/2020 10:56 PM [facility] Lymphocytes, Absolute 1.97 0.70 - 3.10 10*3/mm3 07/14/2020 10:56 PM [facility] Monocytes, Absolute 0.37 0.10 - 0.90 10*3/mm3 07/14/2020 10:56 PM [facility] Eosinophils, Absolute 0.34 0.00 - 0.40 10*3/mm3 07/14/2020 10:56 PM [facility] Basophils, Absolute 0.04 0.00 - 0.20 10*3/mm3 07/14/2020 10:56 PM [facility] Immature Grans, Absolute 0.01 0.00 - 0.05 10*3/mm3 07/14/2020 10:56 PM [facility] nRBC 0.1 0.0 - 0.2 /100 WBC 07/14/2020 10:56 PM [facility] Blood Venipuncture / Unknown 07/14/2020 2:52 PM EST 07/14/2020 3:25 PM EST us Adina Sands MD LAB BLOOD ORDERABLES Amy foreman Result [facility]
[address] [place] [address], * (ABNORMAL) Iron Profile (07/14/2020 2:52 PM EST) Iron 77 37 - 145 mcg/dL 07/14/2020 11:45 PM [facility] Iron Saturation (TSAT) 27 20 - 50 % 07/14/2020 11:45 PM EST [facility] Transferrin 190(L) 200 - 360 mg/dL 07/14/2020 11:45 PM EST [facility] TIBC 283(L) 298 - 536 mcg/dL 07/14/2020 11:45 PM EST [facility] Blood Venipuncture / Unknown 07/14/2020 2:52 PM EST 07/14/2020 3:25 PM EST Adina Sands MD LAB BLOOD ORDERABLES Amy l Result Performing Organization Address [facility]/ZIP Co de Phone Number [facility]
[address] [place] [address], * Protein, Urine, Random - Urine, Clean Catch (07/14/2020 2:52 PM EST) Total Protein, Urine 179.0 mg/dL 07/14/2020 11:16 PM EST [facility] Urine Urine specimen collection, clean catch / Unknown Collection / Unknown 07/14/2020 2:52 PM EST 07/14/2020 4:47 PM EST Narrative [facility] - 07/14/2020 11:16 PM EST Reference intervals for random urine have not been established. Clinical usage is dependent upon physician's interpretation in combination with other laboratory tests. Adina Sands MD URINE ORDERABLES Final Re sult Performing Organization Address [facility]/ZIP Co de Phone Number [facility]
[address] [place] [address], * Creatinine, Urine, Random - Urine, Clean Catch (07/14/2020 2:52 PM EST) Creatinine, Urine 91.7 mg/dL 07/14/2020 11:16 PM EST [facility] Urine Urine specimen collection, clean catch / Unknown Collection / Unknown 07/14/2020 2:52 PM EST 07/14/2020 4:47 PM EST Narrative [facility] - 07/14/2020 11:16 PM EST Reference intervals for random urine have not been established. Clinical usage is dependent upon physician's interpretation in combination with other laboratory tests. Adina Sands MD URINE ORDERABLES Final Re sult [facility]
[address] [place] [address], * (ABNORMAL) Renal Function Panel (07/14/2020 2:52 PM EST) Glucose 139(H) 65 - 99 mg/dL 07/14/2020 11:45 PM [facility] BUN 25(H) 6 - 20 mg/dL 07/14/2020 11:45 PM [facility] Creatinine 3.03(H) 0.57 - 1.00 mg/dL 07/14/2020 11:45 PM [facility] Sodium 140 136 - 145 mmol/L 07/14/2020 11:45 PM [facility] Potassium 4.4 3.5 - 5.2 mmol/L 07/14/2020 11:45 PM [facility] Chloride 110(H) 98 - 107 mmol/L 07/14/2020 11:45 PM [facility] CO2 21.5(L) 22.0 - 29.0 mmol/L 07/14/2020 11:45 PM [facility] Calcium 9.1 8.6 - 10.5 mg/dL 07/14/2020 11:45 PM [facility] Albumin 4.10 3.50 - 5.20 g/dL 07/14/2020 11:45 PM [facility] Phosphorus 3.0 2.5 - 4.5 mg/dL 07/14/2020 11:45 PM [facility] Anion Gap 8.5 5.0 - 15.0 mmol/L 07/14/2020 11:45 PM [facility] BUN/Creatinine Ratio 8.3 7.0 - 25.0 07/14/2020 11:45 PM EST [facility] eGFR Non Amer 18(L) >60 mL/min/1.7 3 07/14/2020 11:45 PM EST [facility] Blood Venipuncture / Unknown 07/14/2020 2:52 PM EST 07/14/2020 3:25 PM EST Narrative [facility] - 07/14/2020 11:45 PM EST GFR Normal >60 Chronic Kidney Disease <60 Kidney Failure <15 Adina Sands MD LAB BLOOD ORDERABLES Amy foreman Result [facility]
[address] [place] [address], documented in this encounter Visit Diagnoses Diagnosis Chronic kidney disease, stage V Chronic kidney disease, Stage V Diabetes mellitus without complication Type II or unspecified type diabetes mellitus without mention of complication, not stated as uncontrolled Anemia, unspecified type documented in this encounter Care Teams Lithographic Plate Maker Relationship Specialty Start Date End Date Jaquan Conley MD [address] [place] [address] PCP - General Internal Medicine 04/23/20 02/14/23 documented as of this encounter
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
--- OUTSIDE RECORDS SUMMARY | 2024-05-30 08:33 | XMS_ITS | Encounter Summary ---
[facility] Address [address] [place] [address] Care Team Providers Care Property Field Adjuster Name Role Phone Jaquan Conley MD Primary Care Provider [phone] [phone] Encounter Details Date Type Department Care Team (Late st Contact Info) Description 12/02/2020 10:20 AM EDT Lab [facility] [address] [place] [address] Chronic kidney disease, stage IV (severe) Social History Tobacco Use Types Packs/Day Years [...] Date/Time Associated Diagnosis Comments URINE CULTURE Routine 12/02/2020 10:18 AM EDT Chronic kidney disease, stage IV (severe) documented in this encounter Results * Urine Culture - Urine, Urine, Clean Catch (12/02/2020 10:18 AM EDT) Urine Culture No growth KIRA 12/03/2020 4:17 PM EDT [facility] Urine Urine specimen collection, clean catch / Unknown Collection / Unknown 12/02/2020 10:18 AM EDT 12/02/2020 11:18 AM EDT us Mare Kapoor [employer] INST[employer] AND [employer]OVER MICROBIOLOGY - GENERAL ORDERABL ES Final Result [facility]
[address] [place] [address], documented in this encounter Visit Diagnoses Diagnosis Chronic kidney disease, stage IV (severe) Chronic kidney disease, Stage IV (severe) documented in this encounter Care Teams Property Field Adjuster Relationship Specialty Start Date End Date Jaquan Conley MD [address] [place] [address] PCP - General Internal Medicine 04/23/20 02/14/23 documented as of this encounter
--- OUTSIDE RECORDS SUMMARY | 2024-05-30 08:33 | XMS_ITS | Encounter Summary ---
Author Organization [facility] Address [address] [id number] Care Team Providers Care Fisher Clam Name Role Phone Jaquan Conley MD Primary Care Provider [phone] [phone] Reason for Referral * (Routine) - Closed Specialty Diagnoses / Procedures Referred By Contac t Referred To Contact Radiology Diagnoses Tobacco use disorder Procedures XR Chest PA & Lateral Adina Sands MD [address] [facility] [address] [place] [address] Phone: tel: fax: Referral ID Status Reason Start Date Expiration Date Visits Re quested Visits Authorized [id number] Closed 02/09/2021 02/09/2022 1 1 Reason for Visit * (Routine) - Closed Specialty Diagnoses / Procedures Referred By Contac t Referred To Contact Radiology Diagnoses Tobacco use disorder Procedures XR Chest PA & Lateral Adina Sands MD [address] [facility] [address] [place] [address] Phone: tel: fax: Referral ID Status Reason Start Date Expiration Date Visits Re quested Visits Authorized [id number] Closed 02/09/2021 02/09/2022 1 1 Encounter Details Date Type Department Care Team (Late st Contact Info) Description 02/09/2021 2:41 PM EDT - 02/09/2021 11:59 PM EDT Hospital Encounter [facility] [address] [place] [id number] Adina Sands MD [address] [facility] [address] [place] [address] Tobacco use disorder Discharge Disposition: Home or Self Care Social [...] 240 tablet 1 06/14/2018 Vitamin D, Ergocalciferol, 95439 units capsule 50,000 Int'l Units. 06/03/2020 amLODIPine-benazepr [...] 02/16/20 23 documented as of this encounter Plan of Treatment Not on file documented as of this encounter Procedures Procedure Name Priority Date/Time Associated Diagnosis Comments XR CHEST PA AND LATERAL Routine 02/09/2021 3:07 PM EDT Tobacco use disorder documented in this encounter Results * XR Chest PA & Lateral (02/09/2021 3:07 PM EDT) Anatomical Region Laterality Modality Body, Chest N/A Radiographic Kim ging 02/09/2021 3:52 PM EDT Impressions 02/09/2021 3:52 PM EDT Unremarkable chest exam. This report was finalized on 02/09/2021 3:52 PM by Elvis Martinez MD. Narrative 02/09/2021 3:52 PM EDT PROCEDURE: XR CHEST PA AND LATERAL- ?? HISTORY: F17.1999; F17.200-Nicotine dependence, unspecified, uncomplicated COMPARISON: 05/25/2020. FINDINGS: ??The lungs are clear. ?? There is no evidence of effusion or other pleural disease. ??The mediastinum has a normal appearance. The cardiac silhouette is unremarkable. Procedure Note Elvis Martinez MD - 02/09/2021 PROCEDURE: XR CHEST PA AND LATERAL- HISTORY: F17.2000; F17.200-Nicotine dependence, unspecified, uncomplicated COMPARISON: 05/25/2020. FINDINGS: The lungs are clear. There is no evidence of effusion or other pleural disease. The mediastinum has a normal appearance. The cardiac silhouette is unremarkable. IMPRESSION: Unremarkable chest exam. This report was finalized on 02/09/2021 3:52 PM by Elvis Martinez MD. Adina Sands MD IMG DIAGNOSTIC IMAGING OR DERABLES Final Result documented in this encounter Visit Diagnoses Diagnosis Tobacco use disorder documented in this encounter Care Teams Fisher Clam Relationship Specialty Start Date End Date Jaquan Conley MD [address] [place] [address] PCP - General Internal Medicine 04/23/20 02/14/23 documented as of this encounter
--- OUTSIDE RECORDS SUMMARY | 2024-05-30 08:33 | XMS_ITS | Encounter Summary ---
Author Organization [facility] Address [address] [place] [address] Care Team Providers Care [facility] Name Role Phone Jaquan Conley MD Primary Care Provider [phone] Reason for Visit * Reason Comments Hand Injury Encounter Details Date Type Department Care Team (Late st Contact Info) Description 05/31/2020 7:40 PM EST - 05/31/2020 9:23 PM EST Emergency [facility] [address] [place] [id number] Jaquan Arenas, DO Contusion of right ring finger without damage to nail, initial encounter (Primary Dx); Contusion of right little finger without damage to nail, initial encounter Discharge Disposition: Home or Self Care Social [...] Sign Reading Time Taken Comments Blood Pressure 148/89 05/31/2020 9:22 PM EST Pulse 84 05/31/2020 9:22 PM EST Temperature 36.6 ??C (97.9 ??F) 05/31/2020 9:22 PM ES T Respiratory Rate 18 05/31/2020 9:22 PM EST Oxygen Saturation 99% 05/31/2020 9:22 PM EST Inhaled Oxygen Concentration - - Weight 86.4 kg (190 lb 6.4 oz) 05/31/2020 7:12 P M EST Height 165.1 cm (5' 5 ) 05/31/2020 7:12 PM EST Body Mass Index 31.68 05/31/2020 7:12 PM EST documented in this encounter Discharge Instructions * Attachments The following attachments cannot be sent through Care Everywhere. * Hand Contusion (Sudanese) documented in this encounter Medications at Time [...] as of this encounter ED Notes * Jaquan Arenas, - 05/31/2020 9:10 PM EST Subjective History of Present Illness Chief Complaint: Blunt injury right hand History of Present Illness: 29-year-old female presents after dropping a desk on her right hand with contusion across her right third fourth and fifth fingers. No punctures or lacerations. Onset: Tonight just prior to arrival Duration: Single episode persistent mild symptom Exacerbating / Alleviating factors: None Associated symptoms: Contusion Nurses Notes reviewed and agree, including vitals, allergies, social history and prior medical history. REVIEW OF SYSTEMS: All systems reviewed and not pertinent unless noted. Positive for: Blunt injury across the right third fourth and fifth fingers after dropping a desk onher finger Negative for: Punctures deformity crush injury Review of Systems Past 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: Diagnosis Date ??? Allergic [...] ??? 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 INDUCED 2006 [facility] History reviewed. No pertinent family history. Social [...] Narrative Merged History Encounter Objective Physical Exam GENERAL APPEARANCE: Well developed, well nourished, obese 29-year-old white female, in no acute distress. VITAL SIGNS: per nursing, reviewed and noted SKIN: Exposed skin with no rashes, ulcerations or petechiae. Contusion to the palmar aspect of the right distal phalanx of the fifth finger, contusion across the palmar aspect of the middle phalanx of the right fourth finger, Head: Normocephalic, atraumatic. EYES: EOMI. ENT: Normal voice. Patient maintained wearing mask throughout patient encounter due to coronavirus pandemic LUNGS: No increased work of breathing. No retractions. CARDIOVASCULAR: Good Peripheral pulses. Good capillary refill. [place] and warm extremities. MUSCULOSKELETAL: No compartment syndrome. Intact sensation for range of motion a good cap refill nonail injury mild tenderness palpation along areas of forementioned contusion and skin examination. NEUROLOGIC: Alert, oriented x 3. No gross deficits. GCS 15. NECK: Supple, symmetric. No tenderness, Full ROM Psychiatric: normal affect. Back: full rom, no paraspinal spasm. Procedures No attending physician procedures were performed on this patient. ED Course Right hand x-ray and interpreted by me reveals no fractures no dislocations. MDM 29-year-old female presents with right hand injury after dropping a desk on it, no evidence of fractures or dislocations per my interpretation. Patient be placed in finger splint to her right fourth finger as this is the most symptomatic finger. Patient advised orthopedist follow-up as needed, supportive care, ice elevation Motrin Tylenol as needed for discomfort. Final diagnoses: Contusion of right ring finger without damage to nail, initial encounter Contusion of right little finger without damage to nail, initial encounter Jaquan Arenas DO 05/31/202113 documented in this encounter Plan of Treatment Not on file documented as of this encounter Procedures Procedure Name Priority Date/Time Associated Diagnosis Comments XR HAND 3+ VW RIGHT STAT 05/31/2020 8 :21 PM EST documented in this encounter Results * XR Hand 3+ View Right (05/31/2020 8:21 PM EST) Anatomical Region Laterality Modality Upper Extremities, Hand [facility] 06/01/2020 6:43 AM EST Impressions 06/01/2020 6:45 AM EST No acute fracture. This report was finalized on 06/01/2020 6:[address] Andrzej Gee DO. Narrative 06/01/2020 6:45 AM EST RIGHT HAND HISTORY: Blunt injury. FINDINGS: ??A three view exam demonstrates no acute fracture or dislocation. The joint spaces appear normal. No foreign bodies identified. Procedure Note Andrzej Gee DO - 06/01/2020 RIGHT HAND HISTORY: Blunt injury. FINDINGS: A three view exam demonstrates no acute fracture or dislocation. The joint spaces appear normal. No foreign bodies identified. IMPRESSION: No acute fracture. This report was finalized on 06/01/2020 6:[address] Andrzej Gee DO. Jaquan Arenas DO IMG DIAGNOSTIC IMAGING ORDERABL ES Final Result documented in this encounter Visit Diagnoses Diagnosis Contusion of right ring finger without damage to nail, initial encounter- Primary Contusion of right little finger without damage to nail, initial encounter documented in this encounter Care Teams [facility] Relationship Specialty Start Date End Date Jaquan Conley MD [address] [place] [id number] PCP - General Internal Medicine 04/23/20 02/14/23 documented as of this encounter
--- OUTSIDE RECORDS SUMMARY | 2024-05-30 08:34 | XMS_ITS | Encounter Summary ---
Author Organization [facility] Address [address] [place] [address] Care Team Providers Care Photo Tech Name Role Phone Unavailable Primary Care Provider Unavailabl e Encounter Details Date Type Department Care Team (Late st Contact Info) Description 09/21/2019 8:45 AM EST Lab [facility] [address] [place] [address] Anemia, unspecified type Social History Tobacco Use Types Packs/Day Years Used Date Smoking Tobacco: Some Days Cigarettes 0.5 10 Alcohol Use Standard Drinks/Week Comments No 0 [...] Name Priority Date/Time Associated Diagnosis Comments CBC WITH AUTO DIFFERENTIAL Routine 09/21/2019 8:47 AM EST Anemia, unspecified type IRON PROFILEC Routine 09/21/2019 8:47 AM EST Anemia, unspecified type CBC AND DIFFERENTIAL Routine 09/21/2019 8:47 AM EST Anemia, unspecified type FERRITIN Routine 09/21/2019 8:47 AM EST Anemia, unspecified type RENAL FUNCTION PANEL Routine 09/21/2019 8:47 AM EST Anemia, unspecified type documented in this encounter Results * (ABNORMAL) CBC Auto Differential (09/21/2019 8:47 AM EST) WBC 10.76 3.40 - 10.80 10*3/mm3 09/21/2019 7:02 PM [facility] RBC 3.22(L) 3.77 - 5.28 10*6/mm3 09/21/2019 7:02 PM [facility] Hemoglobin 10.1(L) 12.0 - 15.9 g/dL 09/21/2019 7:02 PM [facility] Hematocrit 30.0(L) 34.0 - 46.6 % 09/21/2019 7:02 PM [facility] MCV 93.2 79.0 - 97.0 fL 09/21/2019 7:02 PM [facility] MCH 31.4 26.6 - 33.0 pg 09/21/2019 7:02 PM [facility] MCHC 33.7 31.5 - 35.7 g/dL 09/21/2019 7:02 PM [facility] RDW 13.5 12.3 - 15.4 % 09/21/2019 7:02 PM [facility] RDW-SD 46.1 37.0 - 54.0 fl 09/21/2019 7:02 PM [facility] MPV 13.5(H) 6.0 - 12.0 fL 09/21/2019 7:02 PM [facility] Platelets 215 140 - 450 10*3/mm3 09/21/2019 7:02 PM [facility] Neutrophil % 69.3 42.7 - 76.0 % 09/21/2019 7:02 PM [facility] Lymphocyte % 21.6 19.6 - 45.3 % 09/21/2019 7:02 PM [facility] Monocyte % 5.3 5.0 - 12.0 % 09/21/2019 7:02 PM [facility] Eosinophil % 2.8 0.3 - 6.2 % 09/21/2019 7:02 PM [facility] Basophil % 0.4 0.0 - 1.5 % 09/21/2019 7:02 PM [facility] Immature Grans % 0.6(H) 0.0 - 0.5 % 09/21/2019 7:02 PM [facility] Neutrophils, Absolute 7.47(H) 1.70 - 7.00 10*3/mm3 09/21/2019 7:02 PM [facility] Lymphocytes, Absolute 2.32 0.70 - 3.10 10*3/mm3 09/21/2019 7:02 PM [facility] Monocytes, Absolute 0.57 0.10 - 0.90 10*3/mm3 09/21/2019 7:02 PM [facility] Eosinophils, Absolute 0.30 0.00 - 0.40 10*3/mm3 09/21/2019 7:02 PM [facility] Basophils, Absolute 0.04 0.00 - 0.20 10*3/mm3 09/21/2019 7:02 PM [facility] Immature Grans, Absolute 0.06(H) 0.00 - 0.05 10*3/mm3 09/21/2019 7:02 PM [facility] nRBC 0.1 0.0 - 0.2 /100 WBC 09/21/2019 7:02 PM [facility] Blood Venipuncture / Unknown 09/21/2019 8:47 AM EST 09/21/2019 9:29 AM EST us Ibrahima Talamantes MD LAB BLOOD ORDERABLES F inal Result [facility]
[address] [place] [address], * (ABNORMAL) Renal Function Panel (09/21/2019 8:47 AM EST) Glucose 292(H) 65 - 99 mg/dL 09/21/2019 7:21 PM [facility] BUN 45(H) 6 - 20 mg/dL 09/21/2019 7:21 PM [facility] Creatinine 3.86(H) 0.57 - 1.00 mg/dL 09/21/2019 7:21 PM [facility] Sodium 140 136 - 145 mmol/L 09/21/2019 7:21 PM [facility] Potassium 4.9 3.5 - 5.2 mmol/L 09/21/2019 7:21 PM [facility] Chloride 107 98 - 107 mmol/L 09/21/2019 7:21 PM [facility] CO2 18.5(L) 22.0 - 29.0 mmol/L 09/21/2019 7:21 PM [facility] Calcium 8.1(L) 8.6 - 10.5 mg/dL 09/21/2019 7:21 PM [facility] Albumin 3.70 3.50 - 5.20 g/dL 09/21/2019 7:21 PM [facility] Phosphorus 5.2(H) 2.5 - 4.5 mg/dL 09/21/2019 7:21 PM [facility] Anion Gap 14.5 5.0 - 15.0 mmol/L 09/21/2019 7:21 PM [facility] BUN/Creatinine Ratio 11.7 7.0 - 25.0 09/21/2019 7:21 PM [facility] eGFR Non Amer 14(L) >60 mL/min/1.7 3 09/21/2019 7:21 PM [facility] Comment:<15 Indicative of ki dney failure. eGFR Amer 09/21/2019 7:21 PM [facility] Comment:<15 Indicative of ki dney failure. Blood Venipuncture / Unknown 09/21/2019 8:47 AM EST 09/21/2019 9:29 AM EST [facility] - 09/21/2019 7:21 PM EST GFR Normal >60 Chronic Kidney Disease <60 Kidney Failure <15 Ibrahima Talamantes MD LAB BLOOD ORDERABLES F inal Result Performing Organization Address [facility] Co de Phone Number [facility]
[address] [place] [address], * (ABNORMAL) Ferritin (09/21/2019 8:47 AM EST) Ferritin 564.00(H) 13.00 - 150.00 ng/mL 09/21/2019 7:28 PM EST [facility] Blood Venipuncture / Unknown 09/21/2019 8:47 AM EST 09/21/2019 9:29 AM EST Narrative [facility] - 09/21/2019 7:28 PM EST Results may be falsely decreased if patient taking Biotin. Ibrahima Talamantes MD LAB BLOOD ORDERABLES F inal Result Performing Organization Address [facility] Phone Number [facility]
[address] [place] [address], * Iron Profile (09/21/2019 8:47 AM EST) Pathologist [facility] Iron 76 37 - 145 mcg/dL 09/21/2019 7:21 PM EST [facility] Iron Saturation (TSAT) 25 20 - 50 % 09/21/2019 7:21 PM EST [facility] Transferrin 201 200 - 360 mg/dL 09/21/2019 7:21 PM EST [facility] TIBC 299 298 - 536 mcg/dL 09/21/2019 7:21 PM EST [facility] Blood Venipuncture / Unknown 09/21/2019 8:47 AM EST 09/21/2019 9:29 AM EST Ibrahima Talamantes MD LAB BLOOD ORDERABLES F inal Result Performing Organization Address [facility] Co de Phone Number [facility]
[address] [place] [address], documented in this encounter Visit Diagnoses Diagnosis Anemia, unspecified type documented in this encounter
--- OUTSIDE RECORDS SUMMARY | 2024-05-30 08:34 | XMS_ITS | Encounter Summary ---
[facility] Address [address] [place] [address] Care Team Providers Care Desk Officer Name Role Phone Jaquan Conley MD Primary Care Provider [phone] Reason for Visit * Reason Comments Leg Pain Encounter Details Date Type Department Care Team (Late st Contact Info) Description 05/15/2020 9:06 PM EDT - 05/16/2020 1:09 AM EDT Emergency [facility] [address] [place] [id number] Jaquan Arenas, DO Acute pain of both knees (Primary Dx); Atypical chest pain; Elevated blood pressure reading with diagnosis of hypertension Discharge Disposition: Home or Self Care Social [...] Sign Reading Time Taken Comments Blood Pressure 125/65 05/16/2020 1:08 AM EDT Pulse 65 05/16/2020 1:08 AM EDT Temperature 37 ??C (98.6 ??F) 05/16/2020 1:08 AM EDT Respiratory Rate 16 05/16/2020 1:08 AM EDT Oxygen Saturation 98% 05/16/2020 1:08 AM EDT Inhaled Oxygen Concentration - - Weight 90.7 kg (200 lb) 05/15/2020 9:00 PM EDT Height 165.1 cm (5' 5 ) 05/15/2020 9:00 PM EDT Body Mass Index 33.28 05/15/2020 9:00 PM EDT documented in this encounter Discharge Instructions * Attachments The following attachments cannot be sent through Care Everywhere. * Acute Knee Pain Adult (Tanzanian) * Hypertension Adult (Tanzanian) * Nonspecific Chest Pain Adult (Tanzanian) documented in this encounter Medications at Time of Discharge atorvastatin (LIPITOR) 40 MG tablet TAKE 1 [...] Muscle Spasms. 12 tablet 10/31/2018 02/16/20 23 fenofibrate (TRICOR) 145 MG tablet [...] encounter ED Notes * Jaquan Arenas, - 05/16/2020 12:23 AM EDT Subjective History of Present Illness Chief Complaint: Knee pain History of Present Illness: 29-year-old female history of chronic kidney disease and hypertension, not on dialysis, has bilateral knee pain after moving a refrigerator today. States that the refrigerator landed on both her knees. Also reports chest pain substernal nonradiating since this afternoon as well. Onset: Today Duration: Persistent Exacerbating / Alleviating factors: Worse with range of motion Associated symptoms: None Nurses Notes reviewed and agree, including vitals, allergies, social history and prior medical history. REVIEW OF SYSTEMS: All systems reviewed and not pertinent unless noted. Positive for: Bilateral knee pain, chest pain Negative for: Fever cough hemoptysis syncope palpitations deformity Review of Systems Past 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: Diagnosis [...] SLEEVE LAPAROSCOPIC ??? INDUCED 2006 [facility] History reviewed. No pertinent family history. [...] Exam GENERAL APPEARANCE: Well developed, well nourished, 29-year-old white female, in no acute distress. VITAL SIGNS: per nursing, reviewed and noted SKIN: Chronic venous stasis dermatitis to the left lower extremity at the tang. Head: Normocephalic, atraumatic. EYES: EOMI. ENT: Normal voice. Patient maintained wearing mask throughout patient encounter due to coronavirus pandemic LUNGS: No increased work of breathing. No retractions. CARDIOVASCULAR: Good Peripheral pulses. Good capillary refill. Moore and warm extremities. MUSCULOSKELETAL: No compartment syndrome. Intact sensation in his palpation of bilateral knees without deformity. Full range of motion. Pedis pulse good cap refill. NEUROLOGIC: Alert, oriented x 3. No gross deficits. GCS 15. NECK: Supple, symmetric. No tenderness, Full ROM Psychiatric: normal affect. Back: full rom, no paraspinal spasm. Procedures No attending physician procedures were performed on this patient. ED Course ED Course as of May 16 004 Emma May 15, 2020 2245 Bilateral knee x-rays interpreted by me reveal no fractures no dislocations. [PF] 2244 Chest x-ray interpreted by me shows no evidence of any cardiomegaly, effusion, infiltrate, or bony abnormality. [PF] Fri May 16, 2020 0016 EKG interpreted by me reveals sinus rhythm rate of 65. No ectopy no ischemic change. [PF] 0041 WBC: 7.11 [PF] 0041 Hemoglobin(!): 11.4 [PF] 0041 Hematocrit: 36.0 [PF] 0041 Platelets: 168 [PF] 0041 Troponin T: <0.010 [PF] 0042 Glucose(!): 111 [PF] 0042 BUN(!): 31 [PF] 0042 Creatinine(!): 4.11 [PF] 0042 Sodium: 143 [PF] 0042 Potassium: 4.7 [PF] 0042 Chloride(!): 113 [PF] 0042 CO2(!): 19.3 [PF] 0042 Calcium: 9.0 [PF] 0042 Total Protein: 6.8 [PF] 0042 Albumin: 4.00 [PF] 0042 ALT (SGPT): 11 [PF] 0042 AST (SGOT): 12 [PF] 0042 Alkaline Phosphatase: 87 [PF] 0042 Total Bilirubin: 0.2 [PF] ED Course User Index [PF] Jaquan Arenas DO Stable chronic kidney disease compared to old labs. No evidence of ACS. Nontoxic. Blood pressure improved home monitoring in ER. Will place in a hinged knee brace as she complains that the left knee is the most painful knee. Advised outpatient follow-up with orthopedist as needed. Blood pressure monitoring. Return precautions were discussed. MDM Final diagnoses: Atypical chest pain Elevated blood pressure reading with diagnosis of hypertension Acute pain of both knees Jaquan Arenas DO 05/16/20 0043 documented in this encounter Plan of Treatment Pending Results Name Type Priority Associated Diagnoses Date /Time Hope Draw Lab STAT 05/15/2020 1 1:02 PM EDT Green Top (No Gel) Lab Panel STAT 2019 11:02 PM EDT documented as of this encounter Procedures Procedure Name Priority Date/Time Associated Diagnosis Comments GOLD TOP - SST STAT 05/15/2020 11:02 PM EDT DK GREEN TOP STAT 05/15/2020 11:02 PM EDT SCAN SLIDE STAT 05/15/2020 11:02 PM EDT CBC WITH AUTO DIFFERENTIAL STAT 05/15/2020 11:02 PM EDT LAVENDER TOP STAT 05/15/2020 11:02 PM EDT LIGHT BLUE TOP STAT 05/15/2020 11:02 PM EDT TROPONIN STAT 05/15/2020 11:02 PM EDT CBC AND DIFFERENTIAL STAT 05/15/2020 11:02 PM EDT COMPREHENSIVE METABOLIC PANEL STAT 05/15/2020 11:02 PM EDT XR CHEST 1 VW STAT 05/15/2020 10:29 PM EDT XR KNEE 3 VW BILATERAL STAT 0 10:28 PM EDT documented in this encounter Results * Scan Slide (05/15/2020 11:02 PM EDT) RBC Morphology Normal Normal 05/15/2020 11:51 PM EDT [facility] WBC Morphology Normal Normal 05/15/2020 11:51 PM EDT [facility] Platelet Estimate Adequate Normal 05/15/2020 11:51 PM EDT [facility] Blood Venipuncture / Unknown 05/15/2020 11:02 PM EDT 05/15/2020 11:15 PM EDT us Jaquan Arenas DO LAB BLOOD ORDERABLES Final Resu lt [facility]
[address] [place] [address], [place] [phone] * (ABNORMAL) CBC Auto Differential (05/15/2020 11:02 PM EDT) WBC 7.11 3.40 - 10.80 10*3/mm3 05/15/2020 11:[facility] RBC 3.68(L) 3.77 - 5.28 10*6/mm3 05/15/2020 11:51 PM EDT [facility] Hemoglobin 11.4(L) 12.0 - 15.9 g/dL 05/15/2020 11:51 PM EDT [facility] Hematocrit 36.0 34.0 - 46.6 % 05/15/2020 11:51 PM EDT [facility] MCV 97.8(H) 79.0 - 97.0 fL 05/15/2020 11:51 PM EDT [facility] MCH 31.0 26.6 - 33.0 pg 05/15/2020 11:51 PM EDT [facility] MCHC 31.7 31.5 - 35.7 g/dL 05/15/2020 11:51 PM EDT [facility] RDW 13.1 12.3 - 15.4 % 05/15/2020 11:51 PM EDT [facility] RDW-SD 46.7 37.0 - 54.0 fl 05/15/2020 11:51 PM EDT [facility] MPV 13.1(H) 6.0 - 12.0 fL 05/15/2020 11:51 PM EDT [facility] Platelets 168 140 - 450 10*3/mm3 05/15/2020 11:51 PM EDT [facility] Neutrophil % 50.5 42.7 - 76.0 % 05/15/2020 11:51 PM EDT [facility] Lymphocyte % 37.6 19.6 - 45.3 % 05/15/2020 11:51 PM EDT [facility] Monocyte % 7.3 5.0 - 12.0 % 05/15/2020 11:51 PM EDT [facility] Eosinophil % 3.8 0.3 - 6.2 % 05/15/2020 11:51 PM EDT [facility] Basophil % 0.4 0.0 - 1.5 % 05/15/2020 11:51 PM EDT [facility] Immature Grans % 0.4 0.0 - 0.5 % 05/15/2020 11:51 PM EDT [facility] Neutrophils, Absolute 3.59 1.70 - 7.00 10*3/mm3 05/15/2020 11:51 PM EDT [facility] Lymphocytes, Absolute 2.67 0.70 - 3.10 10*3/mm3 05/15/2020 11:51 PM EDT [facility] Monocytes, Absolute 0.52 0.10 - 0.90 10*3/mm3 05/15/2020 11:51 PM EDT [facility] Eosinophils, Absolute 0.27 0.00 - 0.40 10*3/mm3 05/15/2020 11:51 PM EDT [facility] Basophils, Absolute 0.03 0.00 - 0.20 10*3/mm3 05/15/2020 11:51 PM EDT [facility] Immature Grans, Absolute 0.03 0.00 - 0.05 10*3/mm3 05/15/2020 11:51 PM EDT [facility] nRBC 0.0 0.0 - 0.2 /100 WBC 05/15/2020 11:51 PM EDT [facility] Blood Venipuncture / Unknown 05/15/2020 11:02 PM EDT 05/15/2020 11:15 PM EDT us Jaquan Arenas DO LAB BLOOD ORDERABLES Final Resu lt [facility]
[address] [place] [id number], * [facility] (05/15/2020 11:02 PM EDT) Extra Tube Hold for add-ons. 05/16/2020 12:15 AM EDT [facility] Comment:Auto resulted. Blood Venipuncture / Unknown 05/15/2020 11:02 PM EDT 05/15/2020 11:15 PM EDT us Jaquan Arenas DO LAB BLOOD ORDER ONLY Final Resu lt [facility]
[address] [place] [address], [place] [phone] * Lavender Top (05/15/2020 11:02 PM EDT) Extra Tube hold for add-on 05/16/2020 12:15 AM EDT [facility] Comment:Auto resulted Blood Venipuncture / Unknown 05/15/2020 11:02 PM EDT 05/15/2020 11:15 PM EDT us Jaquan Arenas DO LAB BLOOD ORDER ONLY Final Resu lt Performing Organization Address [facility] Co de Phone Number [facility]
[address] [place] [address], [place] [phone] * Green Top (Gel) (05/15/2020 11:02 PM EDT) Extra Tube Hold for add-ons. 05/16/2020 12:15 AM EDT [facility] Comment:Auto resulted. Blood Venipuncture / Unknown 05/15/2020 11:02 PM EDT 05/15/2020 11:15 PM EDT us Jaquan Arenas DO LAB BLOOD ORDER ONLY Final Resu lt Performing Organization Address [facility] Co de Phone Number [facility]
[address] [place] [address], [place] [phone] * Light Blue Top (05/15/2020 11:02 PM EDT) Extra Tube hold for add-on 05/16/2020 12:15 AM EDT [facility] Comment:Auto resulted Blood Venipuncture / Unknown 05/15/2020 11:02 PM EDT 05/15/2020 11:15 PM EDT us Jaquan Arenas DO LAB BLOOD ORDER ONLY Final Resu lt Performing Organization Address City/[facility]/ZIP Co de Phone Number [facility]
[address] [place] [address], * Troponin (05/15/2020 11:02 PM EDT) Troponin T <0.010 0.000 - 0.030 ng/mL 05/15/2020 11:36 PM EDT [facility] Blood Venipuncture / Unknown 05/15/2020 11:02 PM EDT 05/15/2020 11:15 PM EDT Narrative [facility] - 05/15/2020 11:36 PM EDT Troponin T Reference Range: <= 0.03 ng/mL- ?? Negative for AMI >0.03 ng/mL- ? Abnormal for myocardial necrosis. ??Clinicians would have to utilize clinical acumen, EKG, Troponin and serial changes to determine if it is an Acute Myocardial Infarction or myocardial injury due to an underlying chronic condition. Results may be falsely decreased if patient taking Biotin. Jaquan Arenas DO LAB BLOOD ORDERABLES Final Resu lt Performing Organization Address [facility] Co de Phone Number [facility]
[address] [place] [address], [place] [phone] * (ABNORMAL) Comprehensive Metabolic Panel (05/15/2020 11:02 PM EDT) Glucose 111(H) 65 - 99 mg/dL 05/15/2020 11:34 PM EDT [facility] BUN 31(H) 6 - 20 mg/dL 05/15/2020 11:34 PM EDT [facility] Creatinine 4.11(H) 0.57 - 1.00 mg/dL 05/15/2020 11:34 PM EDT [facility] Sodium 143 136 - 145 mmol/L 05/15/2020 11:34 PM EDT [facility] Potassium 4.7 3.5 - 5.2 mmol/L 05/15/2020 11:34 PM EDT [facility] Chloride 113(H) 98 - 107 mmol/L 05/15/2020 11:34 PM EDT [facility] CO2 19.3(L) 22.0 - 29.0 mmol/L 05/15/2020 11:34 PM EDT [facility] Calcium 9.0 8.6 - 10.5 mg/dL 05/15/2020 11:34 PM EDT [facility] Total Protein 6.8 6.0 - 8.5 g/dL 05/15/2020 11:34 PM EDT [facility] Albumin 4.00 3.50 - 5.20 g/dL 05/15/2020 11:34 PM EDT [facility] ALT (SGPT) 11 1 - 33 U/L 05/15/2020 11:34 PM EDT [facility] AST (SGOT) 12 1 - 32 U/L 05/15/2020 11:34 PM EDT [facility] Alkaline Phosphatase 87 39 - 117 U/L 05/15/2020 11:34 PM EDT [facility] Total Bilirubin 0.2 0.0 - 1.2 mg/dL 05/15/2020 11:34 PM EDT [facility] eGFR Non Amer 13(L) >60 mL/min/1.7 3 05/15/2020 11:34 PM EDT [facility] Comment:<15 Indicative of ki dney failure. eGFR Amer 05/15/2020 11:34 PM T [facility] Comment:<15 Indicative of ki dney failure. Globulin 2.8 gm/dL 05/15/2020 11:34 PM EDT [facility] A/G Ratio 1.4 g/dL 05/15/2020 11:34 PM T [facility] BUN/Creatinine Ratio 7.5 7.0 - 25.0 05/15/2020 11:34 PM T [facility] Anion Gap 10.7 5.0 - 15.0 mmol/L 05/15/2020 11:34 PM [facility] Blood Venipuncture / Unknown 05/15/2020 11:02 PM EDT 05/15/2020 11:15 PM EDT Narrative [facility] - 05/15/2020 11:34 PM EDT GFR Normal >60 Chronic Kidney Disease <60 Kidney Failure <15 us Jaquan Arenas DO LAB BLOOD ORDERABLES Final Resu lt [facility]
[address] [place] [address], * XR Chest 1 View (05/15/2020 10:29 PM EDT) Anatomical Region Laterality Modality Body N/A Radiographic Kim ging 05/16/2020 12:2 7 PM EDT Impressions 05/16/2020 12:27 PM EDT No acute cardiopulmonary findings. Followup PA and lateral views would be helpful for a more complete evaluation. This report was finalized on 05/16/2020 12:27 PM by Surendra Pike MD. Narrative 05/16/2020 12:27 PM EDT PORTABLE CHEST INDICATION: Pain. FINDINGS: Single frontal portable chest. Comparison with 07/28/2019. There is an electronic density overlying the midline of the upper abdomen. Heart size is normal. No pneumothorax, consolidation or effusion identified. Procedure Note Janak Pike MD - 05/16/2020 PORTABLE CHEST INDICATION: Pain. FINDINGS: Single frontal portable chest. Comparison with 07/28/2019. There is an electronic density overlying the midline of the upper abdomen. Heart size is normal. No pneumothorax, consolidation or effusion identified. IMPRESSION: No acute cardiopulmonary findings. Followup PA and lateral views would be helpful for a more complete evaluation. This report was finalized on 05/16/2020 12:27 PM by Surendra Pike MD. us Jaquan Arenas DO IMG DIAGNOSTIC IMAGING ORDERABL ES Final Result * XR Knee 3 View Bilateral (05/15/2020 10:28 PM EDT) Anatomical Region Laterality Modality Lower Extremities, Knee Bilateral Radiogra phic Imaging 05/16/2020 12:2 6 PM EDT Impressions 05/16/2020 12:27 PM EDT No acute bony abnormality. Consider MRI if symptoms persist. This report was finalized on 05/16/2020 12:27 PM by Surendra Pike MD. Narrative 05/16/2020 12:27 PM EDT BILATERAL KNEES INDICATION: Blunt injury. Pain. FINDINGS: 3 views of the right knee. No radiopaque foreign body. Joint spaces are preserved. No dislocation, bony destruction or acute fracture identified. Three views of the left knee. No radiopaque foreign body. Joint spaces are preserved. No dislocation, bony destruction or acute fracture identified. Procedure Note Janak Pike MD - 05/16/2020 BILATERAL KNEES INDICATION: Blunt injury. Pain. FINDINGS: 3 views of the right knee. No radiopaque foreign body. Joint spaces are preserved. No dislocation, bony destruction or acute fracture identified. Three views of the left knee. No radiopaque foreign body. Joint spaces are preserved. No dislocation, bony destruction or acute fracture identified. IMPRESSION: No acute bony abnormality. Consider MRI if symptoms persist. This report was finalized on 05/16/2020 12:27 PM by Surendra Pike MD. Jaquan Arenas DO IM DIAGNOSTIC IMAGING ORDERABL ES Final Result documented in this encounter Visit Diagnoses Diagnosis Acute pain of both knees- Primary Atypical chest pain Other chest pain Elevated blood pressure reading with diagnosis of hypertension documented in this encounter Administered Medications Inactive Administered Medications - up to 3 most recent administrations Medication Order MAR Action Action Date Dose Rate Site sodium chloride 0.9 % flush 10 mL 10 mL, Intravenous, As Needed, Line Care, Starting on Emma 05/15/20 at 2201 documented in this encounter Active and Recently Administered Medications Times are shown in EDT. PRN Medication Order 05/14/2020 05/15/2020 05/16/2020 sodium chloride 0.9 % flush 10 mL 10 mL, Intravenous, As Needed, Line Care, Starting on Emma 05/15/20 at 2201 documented in this encounter Care Teams Desk Officer Relationship Specialty Start Date End Date Jaquan Conley MD [address] [place] [phone] PCP - General Internal Medicine 04/23/20 02/14/23 documented as of this encounter
--- OUTSIDE RECORDS SUMMARY | 2024-05-30 08:34 | XMS_ITS | Encounter Summary ---
[facility] Address [address] [place] [address] Care Team Providers Care Multimedia Specialist Name Role Phone Unavailable Primary Care Provider Unavailabl e Encounter Details Date Type Department Care Team (Late st Contact Info) Description 07/23/2019 10:00 AM EST Lab [facility] [address] [place] [address] Chronic kidney disease, stage V Social History Tobacco Use Types Packs/Day Years [...] Procedure Name Priority Date/Time Associated Diagnosis Comments HEP B CONFIRMATION TUBE Routine 07/23/2019 10:03 AM EST Chronic kidney disease, stage V HEPATITIS B SURFACE ANTIGEN Routine 07/23/2019 10:03 AM EST Chronic kidney disease, stage V HEPATITIS C ANTIBODY Routine 07/23/2019 10:03 AM EST Chronic kidney disease, stage V HEPATITIS B SURFACE ANTIBODY Routine 07/23/2019 10:03 AM EST Chronic kidney disease, stage V HEPATITIS B SURFACE ANTIGEN Routine 07/23/2019 10:03 AM EST Chronic kidney disease, stage V documented in this encounter Results * Hep B Confirmation Tube (07/23/2019 10:03 AM EST) Pathologist [facility] Extra Tube Hold for add-ons. 07/23/2019 10:15 PM EST [facility] Comment:Auto resulted. Blood Venipuncture / Unknown 07/23/2019 10:03 AM EST 07/23/2019 10:44 AM EST us Mukul Stevens MD LAB BLOOD ORDERABLES F inal Result Performing Organization Address City/[facility]/ZIP Co de Phone Number [facility]
[address] [place] [address], * Hepatitis B Surface Antigen (07/23/2019 10:03 AM EST) Pathologist [facility] Hepatitis B Surface Ag Non-Reacti ve Non-Reacti ve 07/23/2019 6:32 PM EST [facility] Blood Venipuncture / Unknown 07/23/2019 10:03 AM EST 07/23/2019 10:39 AM EST us Mukul Stevens MD LAB BLOOD ORDERABLES F inal Result [facility]
[address] [place] [address], * Hepatitis C Antibody (07/23/2019 10:03 AM EST) Pathologist [facility] Hepatitis C Ab Non-Reacti ve Non-Reacti ve 07/23/2019 6:31 PM EST [facility] Blood Venipuncture / Unknown 07/23/2019 10:03 AM EST 07/23/2019 10:38 AM EST us Mukul Stevens MD LAB BLOOD ORDERABLES F inal Result Performing Organization Address [facility]/ZIP Co de Phone Number [facility]
[address] [place] [address], * (ABNORMAL) Hepatitis B Surface Antibody (07/23/2019 10:03 AM EST) Hep B S Ab Reactive(A ) Non-Reacti ve 07/23/2019 6:31 PM EST [facility] Blood Venipuncture / Unknown 07/23/2019 10:03 AM EST 07/23/2019 10:38 AM EST Mukul Stevens MD LAB BLOOD ORDERABLES F inal Result Performing Organization Address [facility] Co de Phone Number [facility]
[address] [place] [address], [place] [phone] documented in this encounter Visit Diagnoses Diagnosis Chronic kidney disease, stage V Chronic kidney disease, Stage V documented in this encounter
--- OUTSIDE RECORDS SUMMARY | 2024-05-30 08:34 | XMS_ITS | Encounter Summary ---
Author Organization [facility] Address [address] [place] [id number] Care Team Providers Care Chief Of Production Name Role Phone Unavailable Primary Care Provider Unavailabl e Reason for Visit * Episode Based Medications (Routine) - Closed Specialty Diagnoses / Procedures Referred By Contac t Referred To Contact Diagnoses Chronic kidney disease, stage IV (severe) Anemia due to chronic kidney disease, unspecified CKD stage Procedures MD INJ FERRIC CARBO[facility] 1[facility] Kamilla Mccullough, PharmD [address] [place] [address] Phone: tel: Referral ID Status Reason Start Date Expiration Date Visits Re quested Visits Authorized [id number] Closed 07/06/2019 08/05/2019 1 1 Encounter Details Date Type Department Care Team (Latest Contact Info) Description 07/16/2019 8:09 AM EST - 07/16/2019 11:59 PM [facility] Hospital Encounter [facility] [address] [facility] [address] Anemia due to chronic kidney disease, unspecified CKD stage (Primary Dx); Chronic kidney disease, stage IV (severe) Discharge Disposition: Home or Self Care Social [...] Sign Reading Time Taken Comments Blood Pressure 119/72 07/16/2019 8:59 AM EST Pulse 84 07/16/2019 8:59 AM EST Temperature 36.3 ??C (97.3 ??F) 07/16/2019 8:17 AM ES T Respiratory Rate 18 07/16/2019 8:17 AM EST Oxygen Saturation 99% 07/16/2019 8:17 AM EST Inhaled Oxygen Concentration - - Weight - - Height - - Body Mass Index - - documented in this encounter Medications at Time [...] 02/16/20 23 documented as of this encounter Progress Notes * Parvez Weinstein RN - 07/16/2019 9:09 AM Kasie addended by: Parvez Weinstein RN on: 07/16/2019 9:09 AM Actions taken: LDA properties accepted, Flowsheet accepted, Charge Capture section accepted documented in this encounter Plan of Treatment Not on file documented as of this encounter Visit Diagnoses Diagnosis Anemia due to chronic kidney disease, unspecified CKD stage- Primary Chronic kidney disease, stage IV (severe) Chronic kidney disease, Stage IV (severe) documented in this encounter Administered Medications Inactive Administered Medications - up to 3 most recent administrations Medication Order MAR Action Action Date Dose Rate Site ferric carboxymaltose (INJECTAFER) 750 mg in sodium chloride 0.9 % 100 mL IVPB 750 mg, Intravenous, Once, On Tue07/16/19 at 0915, For 1 dose, For Weight less than 50 kg, Dose is 15 mg/kg. For Weight greater than or equal to 50 kg, Dose is 750mg. MAX DOSE: 750 mg. Administer over at least 15 minutes.Indications:Anemia due to chronic kidney disease, unspecified CKD stage,Chronic kidney disease, stage IV (severe) New Bag 07/16/2019 8:35 AM EST 750 mg documented in this encounter
--- OUTSIDE RECORDS SUMMARY | 2024-05-30 08:34 | XMS_ITS | Encounter Summary ---
[facility] Address [address] [place] [address] Care Team Providers Care Rerecording Mixer Name Role Phone Unavailable Primary Care Provider Unavailabl e Encounter Details Date Type Department Care Team (Late st Contact Info) Description 02/21/2020 3:10 PM EDT Lab [facility] [address] [place] [address] CKD stage G5/A3, GFR <15 and albumin [...] Associated Diagnosis Comments URINALYSIS, MICROSCOPIC ONLY Routine 02/21/2020 3:36 PM EDT CKD stage G5/A3, GFR <15 and albumin creatinine ratio >300 mg/g CBC WITH AUTO DIFFERENTIAL Routine 02/21/2020 3:36 PM EDT CKD stage G5/A3, GFR <15 and albumin creatinine ratio >300 mg/g URINALYSIS AND MICROSCOPIC Routine 02/21/2020 3:36 PM EDT CKD stage G5/A3, GFR <15 and albumin creatinine ratio >300 mg/g URINALYSIS WITHOUT MICROSCOPIC (NO CULTURE) Routine 02/21/2020 3:36 PM EDT CKD stage G5/A3, GFR <15 and albumin creatinine ratio >300 mg/g CBC AND DIFFERENTIAL Routine 02/21/2020 3:36 PM EDT CKD stage G5/A3, GFR <15 and albumin creatinine ratio >300 mg/g RENAL FUNCTION PANEL Routine 02/21/2020 3:36 PM EDT CKD stage G5/A3, GFR <15 and albumin creatinine ratio >300 mg/g documented in this encounter Results * (ABNORMAL) Urinalysis, Microscopic Only - Urine, Clean Catch (02/21/2020 3:36 PM EDT) RBC, UA 3-5(A) None Seen, 0-2 /HPF 02/21/2020 10:57 PM EDT [facility] WBC, UA 31-50(A) None Seen, 0-2 /HPF 02/21/2020 10:57 PM EDT [facility] Bacteria, UA 2+(A) None Seen /HPF 02/21/2020 10:57 PM EDT [facility] Squamous Epithelial Cells, UA 0-2 None Seen, 0-2 /HPF 02/21/2020 10:57 PM EDT [facility] Hyaline Casts, UA 3-6 None Seen /LPF 02/21/2020 10:57 PM EDT [facility] Methodology Automated Microscopy 02/21/2020 10:57 PM EDT [facility] Urine Urine specimen collection, clean catch / Unknown Collection / Unknown 02/21/2020 3:36 PM EDT 02/21/2020 4:27 PM EDT us Mukul Stevens MD URINE ORDERABLES Final Result [facility]
[address] [place] [address], [place] [phone] * (ABNORMAL) Urinalysis without microscopic (no culture) - Urine, Clean Catch (02/21/2020 3:36 PM EDT) Color, UA Yellow Yellow, Straw 02/21/2020 10:51 PM EDT [facility] Appearance, UA Cloudy(A) Clear 02/21/2020 10:51 PM EDT [facility] pH, UA 6.0 5.0 - 8.0 02/21/2020 10:51 PM EDT [facility] Specific [place], UA 1.013 1.005 - 1.030 02/21/2020 10:51 PM EDT [facility] Glucose, UA Negative Negative 02/21/2020 10:51 PM EDT [facility] Ketones, UA Negative Negative 02/21/2020 10:51 PM EDT [facility] Bilirubin, UA Negative Negative 02/21/2020 10:51 PM EDT [facility] Blood, UA Negative Negative 02/21/2020 10:51 PM EDT [facility] Protein, UA >=300 mg/dL (3+)(A) Negative 02/21/2020 10:51 PM EDT [facility] Leuk Esterase, UA Trace(A) Negative 02/21/2020 10:51 PM EDT [facility] Nitrite, UA Negative Negative 02/21/2020 10:51 PM EDT [facility] Urobilinogen, UA 0.2 E.U./dL 0.2 - 1.0 E.U./dL 02/21/2020 10:51 PM EDT [facility] Urine Urine specimen collection, clean catch / Unknown Collection / Unknown 02/21/2020 3:36 PM EDT 02/21/2020 4:27 PM EDT Mukul Stevens MD URINE ORDERABLES Final Result [facility]
[address] [place] [address], * (ABNORMAL) CBC Auto Differential (02/21/2020 3:36 PM EDT) [facility] WBC 7.41 3.40 - 10.80 10*3/mm3 02/21/2020 11:40 PM EDT [facility] RBC 4.12 3.77 - 5.28 10*6/mm3 02/21/2020 11:40 PM EDT [facility] Hemoglobin 12.4 12.0 - 15.9 g/dL 02/21/2020 11:40 PM EDT [facility] Hematocrit 36.9 34.0 - 46.6 % 02/21/2020 11:40 PM EDT [facility] MCV 89.6 79.0 - 97.0 fL 02/21/2020 11:40 PM EDT [facility] MCH 30.1 26.6 - 33.0 pg 02/21/2020 11:40 PM EDT [facility] MCHC 33.6 31.5 - 35.7 g/dL 02/21/2020 11:40 PM EDT [facility] RDW 13.5 12.3 - 15.4 % 02/21/2020 11:40 PM EDT [facility] RDW-SD 44.7 37.0 - 54.0 fl 02/21/2020 11:40 PM EDT [facility] MPV 13.8(H) 6.0 - 12.0 fL 02/21/2020 11:40 PM EDT [facility] Platelets 172 140 - 450 10*3/mm3 02/21/2020 11:40 PM EDT [facility] Neutrophil % 51.4 42.7 - 76.0 % 02/21/2020 11:40 PM EDT [facility] Lymphocyte % 38.3 19.6 - 45.3 % 02/21/2020 11:40 PM EDT [facility] Monocyte % 6.9 5.0 - 12.0 % 02/21/2020 11:40 PM EDT [facility] Eosinophil % 2.7 0.3 - 6.2 % 02/21/2020 11:40 PM EDT [facility] Basophil % 0.4 0.0 - 1.5 % 02/21/2020 11:40 PM EDT [facility] Neutrophils, Absolute 3.81 1.70 - 7.00 10*3/mm3 02/21/2020 11:40 PM EDT [facility] Lymphocytes, Absolute 2.84 0.70 - 3.10 10*3/mm3 02/21/2020 11:40 PM EDT [facility] Monocytes, Absolute 0.51 0.10 - 0.90 10*3/mm3 02/21/2020 11:40 PM EDT [facility] Eosinophils, Absolute 0.20 0.00 - 0.40 10*3/mm3 02/21/2020 11:40 PM EDT [facility] Basophils, Absolute 0.03 0.00 - 0.20 10*3/mm3 02/21/2020 11:40 PM EDT [facility] Blood Venipuncture / Unknown 02/21/2020 3:36 PM EDT 02/21/2020 4:36 PM EDT Mukul Stevens MD LAB BLOOD ORDERABLES F inal Result [facility]
[address] [place] [address], * (ABNORMAL) Renal Function Panel (02/21/2020 3:36 PM EDT) Glucose 53(L) 65 - 99 mg/dL 02/21/2020 11:14 PM EDT [facility] BUN 23(H) 6 - 20 mg/dL 02/21/2020 11:14 PM EDT [facility] Creatinine 3.58(H) 0.57 - 1.00 mg/dL 02/21/2020 11:14 PM EDT [facility] Sodium 140 136 - 145 mmol/L 02/21/2020 11:14 PM EDT [facility] Potassium 4.8 3.5 - 5.2 mmol/L 02/21/2020 11:14 PM EDT [facility] Chloride 110(H) 98 - 107 mmol/L 02/21/2020 11:14 PM EDT [facility] CO2 19.9(L) 22.0 - 29.0 mmol/L 02/21/2020 11:14 PM EDT [facility] Calcium 9.6 8.6 - 10.5 mg/dL 02/21/2020 11:14 PM EDT [facility] Albumin 4.00 3.50 - 5.20 g/dL 02/21/2020 11:14 PM EDT [facility] Phosphorus 3.1 2.5 - 4.5 mg/dL 02/21/2020 11:14 PM EDT [facility] Anion Gap 10.1 5.0 - 15.0 mmol/L 02/21/2020 11:14 PM EDT [facility] BUN/Creatinine Ratio 6.4(L) 7.0 - 25.0 02/21/2020 11:14 PM EDT [facility] eGFR Non Amer 15(L) >60 mL/min/1.7 3 02/21/2020 11:14 PM T [facility] Blood Venipuncture / Unknown 02/21/2020 3:36 PM EDT 02/21/2020 4:38 PM EDT Narrative [facility] - 02/21/2020 11:14 PM EDT GFR Normal >60 Chronic Kidney Disease <60 Kidney Failure <15 us Mukul Stevens MD LAB BLOOD ORDERABLES F inal Result [facility]
[address] [place] [address], documented in this encounter Visit Diagnoses Diagnosis CKD stage G5/A3, GFR <15 and albumin creatinine ratio >300 mg/g documented in this encounter
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
--- OUTSIDE RECORDS SUMMARY | 2024-05-30 08:34 | XMS_ITS | Encounter Summary ---
[facility] Organization [facility] Address [address] [place] [address] Care Team Providers Care Custom Garment Designer Name Role Phone Unavailable Primary Care Provider Unavailabl e Encounter Details Date Type Department Care Team (Late st Contact Info) Description 12/03/2019 9:40 AM EDT Lab [facility] [address] [place] [address] Anemia, unspecified type; CKD stage [...] Diagnosis Comments CBC WITH AUTO DIFFERENTIAL Routine 12/03/2019 9:42 AM EDT Anemia, unspecified type CKD stage G5/A3, GFR <15 and albumin creatinine ratio >300 mg/g PROTEIN, URINE, RANDOM Routine 12/03/2019 9:42 AM EDT Anemia, unspecified type CKD stage G5/A3, GFR <15 and albumin creatinine ratio >300 mg/g CREATININE URINE RANDOM (KIDNEY FUNCTION) GFR COMPONENT Routine 12/03/2019 9:42 AM EDT Anemia, unspecified type CKD stage G5/A3, GFR <15 and albumin creatinine ratio >300 mg/g MANUAL DIFFERENTIAL Routine 12/03/2019 9 :42 AM EDT Anemia, unspecified type CKD stage G5/A3, GFR <15 and albumin creatinine ratio >300 mg/g CBC AND DIFFERENTIAL Routine 12/03/2019 9:42 AM EDT Anemia, unspecified type CKD stage G5/A3, GFR <15 and albumin creatinine ratio >300 mg/g RENAL FUNCTION PANEL Routine 12/03/2019 9:42 AM EDT Anemia, unspecified type CKD stage G5/A3, GFR <15 and albumin creatinine ratio >300 mg/g documented in this encounter Results * (ABNORMAL) Manual Differential (12/03/2019 9:42 AM EDT) Neutrophil % 62.6 42.7 - 76.0 % 12/03/2019 7:33 PM [facility] Lymphocyte % 29.3 19.6 - 45.3 % 12/03/2019 7:33 PM EDT [facility] Monocyte % 2.0(L) 5.0 - 12.0 % [facility] Eosinophil % 6.1 0.3 - 6.2 % 12/03/2019 7:33 PM T [facility] Neutrophils Absolute 5.51 1.70 - 7.00 10*3/mm3 12/03/2019 7:33 PM T [facility] Lymphocytes Absolute 2.58 0.70 - 3.10 10*3/mm3 12/03/2019 7:33 PM EDT [facility] Monocytes Absolute 0.18 0.10 - 0.90 10*3/mm3 12/03/2019 7:33 PM [facility] Eosinophils Absolute 0.54(H) 0.00 - 0.40 10*3/mm3 12/03/2019 7:33 PM EDT [facility] Anisocytosis Mod/2+ None Seen 12/03/2019 7:33 PM EDT [facility] WBC Morphology Normal Normal 12/03/2019 7:33 PM EDT [facility] Platelet Morphology Normal Normal 12/03/2019 7:33 PM EDT [facility] Blood Venipuncture / Unknown 12/03/2019 9:42 AM EDT 12/03/2019 10:45 AM EDT Ibrahima Talamantes MD LAB BLOOD ORDERABLES F inal Result [facility]
[address] [place] [address], * (ABNORMAL) CBC Auto Differential (12/03/2019 9:42 AM EDT) WBC 8.80 3.40 - 10.80 10*3/mm3 12/03/2019 7:33 PM EDT [facility] RBC 3.19(L) 3.77 - 5.28 10*6/mm3 12/03/2019 7:33 PM EDT [facility] Hemoglobin 9.7(L) 12.0 - 15.9 g/dL 12/03/2019 7:33 PM EDT [facility] Hematocrit 28.8(L) 34.0 - 46.6 % 12/03/2019 7:33 PM EDT [facility] MCV 90.3 79.0 - 97.0 fL 12/03/2019 7:33 PM EDT [facility] MCH 30.4 26.6 - 33.0 pg 12/03/2019 7:33 PM EDT [facility] MCHC 33.7 31.5 - 35.7 g/dL 12/03/2019 7:33 PM EDT [facility] RDW 11.8(L) 12.3 - 15.4 % 12/03/2019 7:33 PM EDT [facility] RDW-SD 38.6 37.0 - 54.0 fl 12/03/2019 7:33 PM EDT [facility] MPV 13.2(H) 6.0 - 12.0 fL 12/03/2019 7:33 PM EDT [facility] Platelets 222 140 - 450 10*3/mm3 12/03/2019 7:33 PM EDT [facility] Blood Venipuncture / Unknown 12/03/2019 9:42 AM EDT 12/03/2019 10:45 AM EDT us Ibrahima Talamantes MD LAB BLOOD ORDERABLES F inal Result Performing Organization Address [facility]/ZIP Co de Phone Number [facility]
[address] [place] [address], * Protein, Urine, Random - Urine, Clean Catch (12/03/2019 9:42 AM EDT) Total Protein, Urine 77.0 mg/dL 12/03/2019 7:50 PM EDT [facility] Urine Urine specimen collection, clean catch / Unknown Collection / Unknown 12/03/2019 9:42 AM EDT 12/03/2019 10:45 AM EDT Narrative [facility] - 12/03/2019 7:50 PM EDT Reference intervals for random urine have not been established. Clinical usage is dependent upon physician's interpretation in combination with other laboratory tests. us Ibrahima Talamantes MD URINE ORDERABLES Final Result Performing Organization Address [facility] Co de Phone Number [facility]
[address] [place] [address], [place] [phone] * (ABNORMAL) Renal Function Panel (12/03/2019 9:42 AM EDT) Glucose 188(H) 65 - 99 mg/dL 12/03/2019 7:38 PM EDT [facility] BUN 66(H) 6 - 20 mg/dL 12/03/2019 7:38 PM EDT [facility] Creatinine 4.07(H) 0.57 - 1.00 mg/dL 12/03/2019 7:38 PM T [facility] Sodium 139 136 - 145 mmol/L 12/03/2019 7:38 PM T [facility] Potassium 4.8 3.5 - 5.2 mmol/L 12/03/2019 7:38 PM [facility] Chloride 103 98 - 107 mmol/L 12/03/2019 7:38 PM [facility] CO2 20.5(L) 22.0 - 29.0 mmol/L 12/03/2019 7:38 PM [facility] Calcium 7.1(L) 8.6 - 10.5 mg/dL 12/03/2019 7:38 PM [facility] Albumin 3.70 3.50 - 5.20 g/dL 12/03/2019 7:38 PM [facility] Phosphorus 7.1(H) 2.5 - 4.5 mg/dL 12/03/2019 7:38 PM [facility] Anion Gap 15.5(H) 5.0 - 15.0 mmol/L 12/03/2019 7:38 PM [facility] BUN/Creatinine Ratio 16.2 7.0 - 25.0 12/03/2019 7:38 PM [facility] eGFR Non Amer 13(L) >60 mL/min/1.7 3 12/03/2019 7:38 PM [facility] Comment:<15 Indicative of ki dney failure. eGFR Amer 12/03/2019 7:38 PM [facility] Comment:<15 Indicative of ki dney failure. Blood Venipuncture / Unknown 12/03/2019 9:42 AM EDT 12/03/2019 10:44 AM EDT [facility] - 12/03/2019 7:38 PM EDT GFR Normal >60 Chronic Kidney Disease <60 Kidney Failure <15 Ibrahima Talamantes MD LAB BLOOD ORDERABLES F inal Result Performing Organization Address [facility] Co de Phone Number [facility]
[address] [place] [address], * Creatinine, Urine, Random - Urine, Clean Catch (12/03/2019 9:42 AM EDT) Creatinine, Urine 27.8 mg/dL 12/03/2019 7:50 PM EDT [facility] Urine Urine specimen collection, clean catch / Unknown Collection / Unknown 12/03/2019 9:42 AM EDT 12/03/2019 10:45 AM EDT Narrative [facility] - 12/03/2019 7:50 PM EDT Reference intervals for random urine have not been established. Clinical usage is dependent upon physician's interpretation in combination with other laboratory tests. us Ibrahima Talamantes MD URINE ORDERABLES Final Result Performing Organization Address [facility] Co de Phone Number [facility]
[address] [place] [address], documented in this encounter Visit Diagnoses Diagnosis Anemia, unspecified type CKD stage G5/A3, GFR <15 and albumin creatinine ratio >300 mg/g documented in this encounter
--- OUTSIDE RECORDS SUMMARY | 2024-05-30 08:34 | XMS_ITS | Encounter Summary ---
Author Organization [facility] Address [address] [place] [address] Care Team Providers Care Reservations Specialist Name Role Phone Unavailable Primary Care Provider Unavailabl e Encounter Details Date Type Department Care Team (Late st Contact Info) Description 01/15/2020 11:45 AM EDT Lab [facility] [address] [place] [address] Chronic kidney disease, stage V [...] Procedure Name Priority Date/Time Associated Diagnosis Comments IRON Routine 11/20/2020 3:06 PM EDT Chronic kidney disease, stage V CBC W/MANUAL DIFFERENTIAL Routine 01/15/2020 12:06 PM EDT Chronic kidney disease, stage V URINALYSIS, MICROSCOPIC ONLY Routine 01/15/2020 12:06 PM EDT Chronic kidney disease, stage V CBC WITH AUTO DIFFERENTIAL Routine 01/15/2020 12:06 PM EDT Chronic kidney disease, stage V IRON PROFILEC Routine 01/15/2020 12:06 PM EDT Chronic kidney disease, stage V VITAMIN D,25-HYDROXY Routine 01/15/2020 12:06 PM EDT Chronic kidney disease, stage V MANUAL DIFFERENTIAL Routine 01/15/2020 1 2:06 PM EDT Chronic kidney disease, stage V URINALYSIS AND MICROSCOPIC Routine 01/15/2020 12:06 PM EDT Chronic kidney disease, stage V URINALYSIS WITHOUT MICROSCOPIC (NO CULTURE) Routine 01/15/2020 12:06 PM EDT Chronic kidney disease, stage V PTH, INTACT Routine 01/15/2020 12:06 PM EDT Chronic kidney disease, stage V FERRITIN Routine 01/15/2020 12:06 PM EDT Chronic kidney disease, stage V RENAL FUNCTION PANEL Routine 01/15/2020 12:06 PM EDT Chronic kidney disease, stage V documented in this encounter Results * Iron (11/20/2020 3:06 PM EDT) [facility] Iron 107 37 - 145 mcg/dL 11/21/2020 12:13 AM EDT [facility] Blood Venipuncture / Unknown 11/20/2020 3:06 PM EDT 11/20/2020 3:54 PM EDT us Ming Low MD LAB BLOOD ORDERABLES Final Res ult [facility]
[address] [place] [address], [place] [phone] * (ABNORMAL) Urinalysis, Microscopic Only - Urine, Clean Catch (01/15/2020 12:06 PM EDT) RBC, UA 3-5(A) None Seen, 0-2 /HPF 01/15/2020 6:49 PM EDT [facility] WBC, UA 6-12(A) None Seen, 0-2 /HPF 01/15/2020 6:49 PM EDT [facility] Bacteria, UA 3+(A) None Seen /HPF 01/15/2020 6:49 PM EDT [facility] Squamous Epithelial Cells, UA 3-6(A) None Seen, 0-2 /HPF 01/15/2020 6:49 PM EDT [facility] Hyaline Casts, UA 0-2 None Seen /LPF 01/15/2020 6:49 PM EDT [facility] Methodology Automated Microscopy 01/15/2020 6:49 PM T [facility] Urine Urine specimen collection, clean catch / Unknown Collection / Unknown 01/15/2020 12:06 PM EDT 01/15/2020 1:26 PM EDT Ming Low MD URINE ORDERABLES Final Result [facility]
[address] [place] [address], * (ABNORMAL) Urinalysis without microscopic (no culture) - Urine, Clean Catch (01/15/2020 12:06 PM EDT) Color, UA Yellow Yellow, Straw 01/15/2020 6:45 PM EDT [facility] Appearance, UA Clear Clear 01/15/2020 6:45 PM EDT [facility] pH, UA 6.0 5.0 - 8.0 01/15/2020 6:45 PM EDT [facility] Specific [place], UA 1.016 1.005 - 1.030 01/15/2020 6:45 PM EDT [facility] Glucose, UA 100 mg/dL (Trace)(A) Negative 01/15/2020 6:45 PM EDT [facility] Ketones, UA Negative Negative 01/15/2020 6:45 PM EDT [facility] Bilirubin, UA Negative Negative 01/15/2020 6:45 PM EDT [facility] Blood, UA Small (1+)(A) Negative 01/15/2020 6:45 PM EDT [facility] Protein, UA >=300 mg/dL (3+)(A) Negative 01/15/2020 6:45 PM EDT [facility] Leuk Esterase, UA Negative Negative 01/15/2020 6:45 PM EDT [facility] Nitrite, UA Negative Negative 01/15/2020 6:45 PM EDT [facility] Urobilinogen, UA 0.2 E.U./dL 0.2 - 1.0 E.U./dL 01/15/2020 6:45 PM EDT [facility] Urine Urine specimen collection, clean catch / Unknown Collection / Unknown 01/15/2020 12:06 PM EDT 01/15/2020 1:26 PM EDT us Ming Low MD URINE ORDERABLES Final Result [facility]
[address] [place] [address], * (ABNORMAL) Manual Differential (01/15/2020 12:06 PM EDT) Neutrophil % 75.8 42.7 - 76.0 % 01/15/2020 7:36 PM EDT [facility] Lymphocyte % 22.2 19.6 - 45.3 % 01/15/2020 7:36 PM EDT [facility] Monocyte % 1.0(L) 5.0 - 12.0 % 01/15/2020 7:36 PM EDT [facility] Eosinophil % 1.0 0.3 - 6.2 % 01/15/2020 7:36 PM EDT [facility] Neutrophils Absolute 7.31(H) 1.70 - 7.00 10*3/mm3 01/15/2020 7:36 PM EDT [facility] Lymphocytes Absolute 2.14 0.70 - 3.10 10*3/mm3 01/15/2020 7:36 PM EDT [facility] Monocytes Absolute 0.10 0.10 - 0.90 10*3/mm3 01/15/2020 7:36 PM EDT [facility] Eosinophils Absolute 0.10 0.00 - 0.40 10*3/mm3 01/15/2020 7:36 PM EDT [facility] RBC Morphology Normal Normal 01/15/2020 7:36 PM EDT [facility] WBC Morphology Normal Normal 01/15/2020 7:36 PM EDT [facility] Platelet Morphology Normal Normal 01/15/2020 7:36 PM EDT [facility] Blood Venipuncture / Unknown 01/15/2020 12:06 PM EDT 01/15/2020 1:11 PM EDT us Ming Low MD LAB BLOOD ORDERABLES Final Res ult [facility]
[address] [place] [address], * (ABNORMAL) CBC Auto Differential (01/15/2020 12:06 PM EDT) WBC 9.65 3.40 - 10.80 10*3/mm3 01/15/2020 7:36 PM EDT [facility] RBC 3.74(L) 3.77 - 5.28 10*6/mm3 01/15/2020 7:36 PM EDT [facility] Hemoglobin 11.1(L) 12.0 - 15.9 g/dL 01/15/2020 7:36 PM EDT [facility] Hematocrit 33.1(L) 34.0 - 46.6 % 01/15/2020 7:36 PM EDT [facility] MCV 88.5 79.0 - 97.0 fL 01/15/2020 7:36 PM EDT [facility] MCH 29.7 26.6 - 33.0 pg 01/15/2020 7:36 PM EDT [facility] MCHC 33.5 31.5 - 35.7 g/dL 01/15/2020 7:36 PM EDT [facility] RDW 12.4 12.3 - 15.4 % 01/15/2020 7:36 PM EDT [facility] RDW-SD 40.4 37.0 - 54.0 fl 01/15/2020 7:36 PM EDT [facility] MPV 12.8(H) 6.0 - 12.0 fL 01/15/2020 7:36 PM EDT [facility] Platelets 292 140 - 450 10*3/mm3 01/15/2020 7:36 PM EDT [facility] Blood Venipuncture / Unknown 01/15/2020 12:06 PM EDT 01/15/2020 1:11 PM EDT Ming Low MD LAB BLOOD ORDERABLES Final Res ult [facility]
[address] [place] [address], * (ABNORMAL) Vitamin D 25 Hydroxy (01/15/2020 12:06 PM EDT) 25 Hydroxy, Vitamin D 18.4(L) 30.0 - 100.0 ng/ml 01/15/2020 7:38 PM EDT [facility] Blood Venipuncture / Unknown 01/15/2020 12:06 PM EDT 01/15/2020 1:10 PM EDT Narrative [facility] - 01/15/2020 7:38 PM EDT Reference Range for Total Vitamin D 25(OH) Deficiency <20.0 ng/mL Insufficiency 21-29 ng/mL Sufficiency 30-100 ng/mL Toxicity >100 ng/ml Results may be falsely increased if patient taking Biotin. Ming Low MD LAB BLOOD ORDERABLES Final Res ult [facility]
[address] [place] [address], * (ABNORMAL) Renal Function Panel (01/15/2020 12:06 PM EDT) [facility] Glucose 93 65 - 99 mg/dL 01/15/2020 7:15 PM EDT [facility] BUN 48(H) 6 - 20 mg/dL 01/15/2020 7:15 PM EDT [facility] Creatinine 4.29(H) 0.57 - 1.00 mg/dL 01/15/2020 7:15 PM EDT [facility] Sodium 136 136 - 145 mmol/L 01/15/2020 7:15 PM EDT [facility] Potassium 4.6 3.5 - 5.2 mmol/L 01/15/2020 7:15 PM EDT [facility] Chloride 108(H) 98 - 107 mmol/L 01/15/2020 7:15 PM EDT [facility] CO2 18.0(L) 22.0 - 29.0 mmol/L 01/15/2020 7:15 PM EDT [facility] Calcium 9.1 8.6 - 10.5 mg/dL 01/15/2020 7:15 PM EDT [facility] Albumin 4.00 3.50 - 5.20 g/dL 01/15/2020 7:15 PM EDT [facility] Phosphorus 3.9 2.5 - 4.5 mg/dL 01/15/2020 7:15 PM EDT [facility] Anion Gap 10.0 5.0 - 15.0 mmol/L 01/15/2020 7:15 PM EDT [facility] BUN/Creatinine Ratio 11.2 7.0 - 25.0 01/15/2020 7:15 PM EDT [facility] eGFR Non Amer 12(L) >60 mL/min/1.7 3 01/15/2020 7:15 PM EDT [facility] Comment:<15 Indicative of ki dney failure. eGFR Amer 01/15/2020 7:15 PM EDT [facility] Comment:<15 Indicative of ki dney failure. Blood Venipuncture / Unknown 01/15/2020 12:06 PM EDT 01/15/2020 1:10 PM EDT [facility] - 01/15/2020 7:15 PM EDT GFR Normal >60 Chronic Kidney Disease <60 Kidney Failure <15 us Ming Low MD LAB BLOOD ORDERABLES Final Res ult Performing Organization Address [facility] Co de Phone Number [facility]
[address] [place] [address], * (ABNORMAL) PTH, Intact (01/15/2020 12:06 PM EDT) PTH, Intact 373.0(H) 15.0 - 65.0 pg/mL 01/15/2020 8:03 PM EDT [facility] Blood Venipuncture / Unknown 01/15/2020 12:06 PM EDT 01/15/2020 1:10 PM EDT [facility] - 01/15/2020 8:03 PM EDT Results may be falsely decreased if patient taking Biotin. us Ming Low MD LAB BLOOD ORDERABLES Final Res ult Performing Organization Address [facility] Co de Phone Number [facility]
[address] [place] [address], * (ABNORMAL) Ferritin (01/15/2020 12:06 PM EDT) Ferritin 637.00(H) 13.00 - 150.00 ng/mL 01/15/2020 7:18 PM EDT [facility] Blood Venipuncture / Unknown 01/15/2020 12:06 PM EDT 01/15/2020 1:10 PM EDT [facility] - 01/15/2020 7:18 PM EDT Results may be falsely decreased if patient taking Biotin. us Ming Low MD LAB BLOOD ORDERABLES Final Res ult Performing Organization Address City/[facility]/ZIP Co de Phone Number [facility]
[address] [place] [address], [place] [phone] * (ABNORMAL) Iron Profile (01/15/2020 12:06 PM EDT) Iron 50 37 - 145 mcg/dL 01/15/2020 7:15 PM EDT [facility] Iron Saturation (TSAT) 19(L) 20 - 50 % 01/15/2020 7:15 PM EDT [facility] Transferrin 181(L) 200 - 360 mg/dL 01/15/2020 7:15 PM EDT [facility] TIBC 270(L) 298 - 536 mcg/dL 01/15/2020 7:15 PM EDT [facility] Blood Venipuncture / Unknown 01/15/2020 12:06 PM EDT 01/15/2020 1:10 PM EDT us Ming Low MD LAB BLOOD ORDERABLES Final Res ult Performing Organization Address [facility] Co de Phone Number [facility]
[address] [place] [address], [place] [phone] documented in this encounter Visit Diagnoses Diagnosis Chronic kidney disease, stage V Chronic kidney disease, Stage V documented in this encounter
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
--- OUTSIDE RECORDS SUMMARY | 2024-05-30 08:34 | XMS_ITS | Encounter Summary ---
Author Organization [facility] Address [address] [place] [address] Care Team Providers Care Electricians Top Helper Name Role Phone Jaquan Conley MD Primary Care Provider [phone] Encounter Details Date Type Department Care Team (Late st Contact Info) Description 04/23/2020 10:25 AM EDT Lab [facility] [address] [place] [address] Chronic kidney disease, stage V [...] Associated Diagnosis Comments URINALYSIS, MICROSCOPIC ONLY Routine 04/23/2020 10:33 AM EDT Chronic kidney disease, stage V PROTEIN, URINE, RANDOM Routine 04/23/2020 10:33 AM EDT Chronic kidney disease, stage V CREATININE URINE RANDOM (KIDNEY FUNCTION) GFR COMPONENT Routine 04/23/2020 10:33 AM EDT Chronic kidney disease, stage V VITAMIN D,25-HYDROXY Routine 04/23/2020 10:33 AM EDT Chronic kidney disease, stage V URINALYSIS AND MICROSCOPIC Routine 04/23/2020 10:33 AM EDT Chronic kidney disease, stage V URINALYSIS WITHOUT MICROSCOPIC (NO CULTURE) Routine 04/23/2020 10:33 AM EDT Chronic kidney disease, stage V PTH, INTACT Routine 04/23/2020 10:33 AM EDT Chronic kidney disease, stage V RENAL FUNCTION PANEL Routine 04/23/2020 10:33 AM EDT Chronic kidney disease, stage V documented in this encounter Results * (ABNORMAL) Urinalysis, Microscopic Only - Urine, Clean Catch (04/23/2020 10:33 AM EDT) RBC, UA 3-5(A) None Seen, 0-2 /HPF 04/23/2020 6:42 PM EDT [facility] WBC, UA 0-2 None Seen, 0-2 /HPF 04/23/2020 6:42 PM EDT [facility] Bacteria, UA 2+(A) None Seen /HPF 04/23/2020 6:42 PM EDT [facility] Squamous Epithelial Cells, UA 3-6(A) None Seen, 0-2 /HPF 04/23/2020 6:42 PM EDT [facility] Hyaline Casts, UA 0-2 None Seen /LPF 04/23/2020 6:42 PM EDT [facility] Methodology Automated Microscopy 04/23/2020 6:42 PM EDT [facility] Urine Urine specimen collection, clean catch / Unknown Collection / Unknown 04/23/2020 10:33 AM EDT 04/23/2020 11:13 AM EDT us Mukul Stevens MD URINE ORDERABLES Final Result [facility]
[address] [place] [address], * (ABNORMAL) Urinalysis without microscopic (no culture) - Urine, Clean Catch (04/23/2020 10:33 AM EDT) Color, UA Yellow Yellow, Straw 04/23/2020 6:36 PM EDT [facility] Appearance, UA Clear Clear 04/23/2020 6:36 PM EDT [facility] pH, UA 5.5 5.0 - 8.0 04/23/2020 6:36 PM EDT [facility] Specific [place], UA 1.012 1.005 - 1.030 04/23/2020 6:36 PM EDT [facility] Glucose, UA Negative Negative 04/23/2020 6:36 PM EDT [facility] Ketones, UA Negative Negative 04/23/2020 6:36 PM EDT [facility] Bilirubin, UA Negative Negative 04/23/2020 6:36 PM EDT [facility] Blood, UA Negative Negative 04/23/2020 6:36 PM EDT [facility] Protein, UA >=300 mg/dL (3+)(A) Negative 04/23/2020 6:36 PM EDT [facility] Leuk Esterase, UA Negative Negative 04/23/2020 6:36 PM EDT [facility] Nitrite, UA Negative Negative 04/23/2020 6:36 PM EDT [facility] Urobilinogen, UA 0.2 E.U./dL 0.2 - 1.0 E.U./dL 04/23/2020 6:36 PM EDT [facility] Urine Urine specimen collection, clean catch / Unknown Collection / Unknown 04/23/2020 10:33 AM EDT 04/23/2020 11:13 AM EDT Mukul Stevens MD URINE ORDERABLES Final Result [facility]
[address] [place] [address], * (ABNORMAL) Vitamin D 25 Hydroxy (04/23/2020 10:33 AM EDT) [facility] 25 Hydroxy, Vitamin D 29.5(L) 30.0 - 100.0 ng/ml 04/23/2020 7:00 PM EDT [facility] Blood Venipuncture / Unknown 04/23/2020 10:33 AM EDT 04/23/2020 10:50 AM EDT Narrative [facility] - 04/23/2020 7:00 PM EDT Reference Range for Total Vitamin D 25(OH) Deficiency <20.0 ng/mL Insufficiency 21-29 ng/mL Sufficiency 30-100 ng/mL Toxicity >100 ng/ml Results may be falsely increased if patient taking Biotin. Mukul Stevens MD LAB BLOOD ORDERABLES F inal Result [facility]
[address] [place] [address], * (ABNORMAL) Renal Function Panel (04/23/2020 10:33 AM EDT) [facility] Glucose 79 65 - 99 mg/dL 04/23/2020 7:08 PM EDT [facility] BUN 32(H) 6 - 20 mg/dL 04/23/2020 7:08 PM EDT [facility] Creatinine 3.92(H) 0.57 - 1.00 mg/dL 04/23/2020 7:08 PM EDT [facility] Sodium 142 136 - 145 mmol/L 04/23/2020 7:08 PM EDT [facility] Potassium 4.9 3.5 - 5.2 mmol/L 04/23/2020 7:08 PM EDT [facility] Chloride 111(H) 98 - 107 mmol/L 04/23/2020 7:08 PM EDT [facility] CO2 20.8(L) 22.0 - 29.0 mmol/L 04/23/2020 7:08 PM EDT [facility] Calcium 9.0 8.6 - 10.5 mg/dL 04/23/2020 7:08 PM EDT [facility] Albumin 4.10 3.50 - 5.20 g/dL 04/23/2020 7:08 PM EDT [facility] Phosphorus 3.9 2.5 - 4.5 mg/dL 04/23/2020 7:08 PM EDT [facility] Anion Gap 10.2 5.0 - 15.0 mmol/L 04/23/2020 7:08 PM EDT [facility] BUN/Creatinine Ratio 8.2 7.0 - 25.0 04/23/2020 7:08 PM EDT [facility] eGFR Non Amer 13(L) >60 mL/min/1.7 3 04/23/2020 7:08 PM EDT [facility] Comment:<15 Indicative of ki dney failure. eGFR Amer 04/23/2020 7:08 PM EDT [facility] Comment:<15 Indicative of ki dney failure. Blood Venipuncture / Unknown 04/23/2020 10:33 AM EDT 04/23/2020 10:50 AM EDT Narrative [facility] - 04/23/2020 7:08 PM EDT GFR Normal >60 Chronic Kidney Disease <60 Kidney Failure <15 Mukul Stevens MD LAB BLOOD ORDERABLES F inal Result [facility]
[address] [place] [address], * Protein, Urine, Random - Urine, Clean Catch (04/23/2020 10:33 AM EDT) Total Protein, Urine 138.0 mg/dL 04/23/2020 7:38 PM EDT [facility] Urine Urine specimen collection, clean catch / Unknown Collection / Unknown 04/23/2020 10:33 AM EDT 04/23/2020 11:13 AM EDT [facility] - 04/23/2020 7:38 PM EDT Reference intervals for random urine have not been established. Clinical usage is dependent upon physician's interpretation in combination with other laboratory tests. us Mukul Stevens MD URINE ORDERABLES Final Result Performing Organization Address [facility] Co de Phone Number [facility]
[address] [place] [address], [place] [phone] * (ABNORMAL) PTH, Intact (04/23/2020 10:33 AM EDT) PTH, Intact 314.0(H) 15.0 - 65.0 pg/mL 04/23/2020 6:59 PM EDT [facility] Blood Venipuncture / Unknown 04/23/2020 10:33 AM EDT 04/23/2020 10:50 AM EDT [facility] - 04/23/2020 6:59 PM EDT Results may be falsely decreased if patient taking Biotin. us Mukul Stevens MD LAB BLOOD ORDERABLES F inal Result Performing Organization Address [facility] de Phone Number [facility]
[address] [place] [address], [place] [phone] * Creatinine, Urine, Random - Urine, Clean Catch (04/23/2020 10:33 AM EDT) Creatinine, Urine 80.8 mg/dL 04/23/2020 7:38 PM EDT [facility] Urine Urine specimen collection, clean catch / Unknown Collection / Unknown 04/23/2020 10:33 AM EDT 04/23/2020 11:13 AM EDT [facility] - 04/23/2020 7:38 PM EDT Reference intervals for random urine have not been established. Clinical usage is dependent upon physician's interpretation in combination with other laboratory tests. us Mukul Stevens MD URINE ORDERABLES Final Result [facility]
[address] [place] [address], documented in this encounter Visit Diagnoses Diagnosis Chronic kidney disease, stage V Chronic kidney disease, Stage V documented in this encounter Care Teams Electricians Top Helper Relationship Specialty Start Date End Date Jaquan Conley MD [address] [place] [id number] PCP - General Internal Medicine 04/23/20 02/14/23 documented as of this encounter
--- OUTSIDE RECORDS SUMMARY | 2024-05-30 08:34 | XMS_ITS | Encounter Summary ---
Author Organization [facility] Address [address] [place] [id number] Care Team Providers Care Underground Production Foreperson Name Role Phone Unavailable Primary Care Provider Unavailabl e Reason for Visit * Reason Comments Outpatient Infusion * Episode Based Medications (Routine) - Closed Specialty Diagnoses / Procedures Referred By Contac t Referred To Contact Diagnoses Chronic kidney disease, stage IV (severe) Anemia due to chronic kidney disease, unspecified CKD stage Procedures DE [facility] 1[facility] Kamilla Mccullough, PharmD [address] [place] [address] Phone: tel: Referral ID Status Reason Start Date Expiration Date Visits Re quested Visits Authorized [id number] Closed 07/06/2019 08/05/2019 1 1 Encounter Details Date Type Department Care Team (Latest Contact Info) Description 07/09/2019 1:00 PM EST - 07/09/2019 11:59 PM [facility] Hospital Encounter [facility] OUTPATIENT INFUSION [address] [facility] MEDICAL OFFICE [address] [address] Anemia due to chronic kidney disease, unspecified [...] Sign Reading Time Taken Comments Blood Pressure 140/84 07/09/2019 2:42 PM EST Pulse 84 07/09/2019 2:42 PM EST Temperature 36.9 ??C (98.5 ??F) 07/09/2019 1:06 PM ES T Respiratory Rate 18 07/09/2019 1:06 PM EST Oxygen Saturation 98% 07/09/2019 1:06 PM EST Inhaled Oxygen Concentration - - [...] 11/02/2018 02/16/20 documented as of this encounter Plan of [...] mL IVPB 750 mg, Intravenous, Once, On 07/09/19 at 1400, For 1 dose, For Weight less than 50 kg, Dose is 15 mg/kg. For Weight greater than or equal to 50 kg, Dose is 750mg. MAX DOSE: 750 mg. Administer over at least 15 minutes.Indications:Anemia due to chronic kidney disease, unspecified CKD stage,Chronic kidney disease, stage IV (severe) New Bag 07/09/2019 1:28 PM EST 750 mg 400 mL/hr documented in this encounter
--- OUTSIDE RECORDS SUMMARY | 2024-05-30 08:34 | XMS_ITS | Encounter Summary ---
[facility] Address [address] [id number] Care Team Providers Care Supervisor Telephone Answering Service Name Role Phone Unavailable Primary Care Provider Unavailabl e Reason for Visit * Reason Comments Chest Pain Encounter Details Date Type Department Care Team (Late st Contact Info) Description 07/28/2019 7:56 PM EST - 07/28/2019 9:45 PM EST Emergency [facility] [address] [place] [phone] Christopher Aggarwal MD Bad taste in mouth (Primary Dx); Chest pain, unspecified type Discharge Disposition: Home or Self Care Social [...] Sign Reading Time Taken Comments Blood Pressure 130/84 07/28/2019 9:00 PM EST Pulse 89 07/28/2019 9:00 PM EST Temperature 36.7 ??C (98.1 ??F) 07/28/2019 7:55 PM ES T Respiratory Rate 18 07/28/2019 9:00 PM EST Oxygen Saturation 96% 07/28/2019 9:00 PM EST Inhaled Oxygen Concentration - - Weight 104 kg (230 lb) 07/28/2019 7:55 PM EST Height 165.1 cm (5' 5 ) 07/28/2019 7:55 PM EST Body Mass Index 38.27 07/28/2019 7:55 PM EST documented in this encounter Discharge Instructions * Attachments The following attachments cannot be sent through Care Everywhere. * Nonspecific Chest Pain Adult [id number] (Haitian) * Gastroesophageal Reflux Disease Adult Glwx-de-Ulet (Haitian) documented in this encounter Medications at Time [...] as of this encounter ED Notes * Christopher Aggarwal MD - 07/28/2019 8:31 PM EST Subjective 28-year-old female presenting with Windex taste in my mouth . She states that a few days ago she ate at [facility] and subsequently had a couple days worth of diarrhea and vomiting. She was afraid that shehad been food poisoned . She was feeling better today and went to [employer] about 3 hours prior toarrival. She states after eating at [employer] she had a gut wrenching sensation and then she taste d Windex in my mouth . She was again afraid that she had been food poisoned . She has had some vague mild achy right-sided chest pain associated with this abnormal taste. She denies any shortness of breath, abdominal pain, vomiting, diarrhea or other complaints. Review of Systems Constitutional: Negative. HENT: Negative. Eyes: Negative. Respiratory: Negative. Cardiovascular: Positive for chest pain. Gastrointestinal: Positive for abdominal pain. Negative for diarrhea, nausea and vomiting. Genitourinary: Negative. Musculoskeletal: Negative. Skin: Negative. Neurological: Negative. Psychiatric/Behavioral: Negative. Past [...] SECTION 10/17/2012 ??? SECTION ??? INDUCED 2006 [facility] History reviewed. No pertinent family history. Social [...] time. She appears well- developed and well-nourished. No distress. HENT: Head: Normocephalic and atraumatic. Right Ear: External ear normal. Left Ear: External ear normal. Nose: Nose normal. Mouth/Throat: Oropharynx is clear and moist. Eyes: Pupils are equal, round, and reactive to light. Conjunctivae and EOM are normal. Neck: Normal range of motion. Neck supple. Cardiovascular: Normal rate, regular rhythm, normal heart sounds and intact distal pulses. Exam reveals no gallop and no friction rub. No murmur heard. Pulmonary/Chest: Effort normal and breath sounds normal. No stridor. No respiratory distress. She has no wheezes. She has no rales. Abdominal: Soft. Bowel sounds are normal. She exhibits no distension. There is no tenderness. Thereis no rebound and no guarding. Musculoskeletal: Normal range of motion. She exhibits no edema, tenderness or deformity. Neurological: She is alert and oriented to person, place, and time. Skin: Skin is warm and dry. No rash noted. Psychiatric: She has a normal mood and affect. Her behavior is normal. Nursing note and vitals reviewed. Procedures ED Course MDM Number of Diagnoses or Management Options Bad taste in mouth: Chest pain, unspecified type: Diagnosis management comments: 28-year-old female with abnormal taste in her mouth and chest pain. Well-developed, well-nourished obese lady in no distress with exam as above. She has normal vital signs. She has a benign abdominal exam. History sounds most consistent with reflux. Will check labs, chest x-ray and EKG. We will give symptomatic treatment. Disposition pending. DDX: GERD, ulcer disease, ACS, anxiety, musculoskeletal pain EKG interpreted by me: Sinus rhythm, normal rate, no acute ST/T changes, this is a normal EKG Compared to previous work-up here reveals no acute or significant abnormality. Chest x-ray per my interpretation reveals no acute abnormality. Will discharge home with outpatient follow-up. Amount and/or Complexity of Data Reviewed Clinical lab tests: reviewed Decide to obtain previous medical records or to obtain history from someone other than the patient:yes Final diagnoses: Bad taste in mouth Chest pain, unspecified type Christopher Aggarwal MD 07/28/192122 documented in this encounter Plan of Treatment Pending Results Name Type Priority Associated Diagnoses Date /Time [place] Draw Lab STAT 07/28/2019 8 :15 PM EST Green Top (No Gel) Lab Panel STAT 2019 8:15 PM EST documented as of this encounter Procedures Procedure Name Priority Date/Time Associated Diagnosis Comments XR CHEST 2 VW STAT 07/28/2019 8:44 PM EST GOLD TOP - SST STAT 07/28/2019 8:15 PM EST DK GREEN TOP STAT 07/28/2019 8:15 PM EST CBC WITH AUTO DIFFERENTIAL STAT 07/28/2019 8:15 PM EST LAVENDER TOP STAT 07/28/2019 8:15 PM EST LIGHT BLUE TOP STAT 07/28/2019 8:15 PM EST TROPONIN STAT 07/28/2019 8:15 PM EST CBC AND DIFFERENTIAL STAT 07/28/2019 8:15 PM EST COMPREHENSIVE METABOLIC PANEL STAT 07/28/2019 8:15 PM EST documented in this encounter Results * XR Chest 2 View (07/28/2019 8:44 PM EST) Anatomical Region Laterality Modality Body N/A Radiographic Kim ging 07/29/2019 7:21 AM EST Impressions 07/29/2019 7:22 AM EST Negative two-view chest. This report was finalized on 07/29/2019 7:[address] Andrzej Gee DO. Narrative 07/29/2019 7:22 AM EST TWO-VIEW CHEST ?07/28/2019 8:44 PM HISTORY: Precordial chest pain. COMPARISON: ??May 2019 FINDINGS: ??The cardiac silhouette is proper size. The aortic contours are normal. The mediastinal and hilar structures are unremarkable. The lungs are clear. There is no pneumothorax. Procedure Note Andrzej Gee DO - 07/29/2019 TWO-VIEW CHEST 07/28/2019 8:44 PM HISTORY: Precordial chest pain. COMPARISON: May 2019 FINDINGS: The cardiac silhouette is proper size. The aortic contours are normal. The mediastinal and hilar structures are unremarkable. The lungs are clear. There is no pneumothorax. IMPRESSION: Negative two-view chest. This report was finalized on 07/29/2019 7:[address] Andrzej Gee DO. Christopher Aggarwal MD IMG DIAGNOSTIC IMAGING O RDERABLES Final Result * (ABNORMAL) CBC Auto Differential (07/28/2019 8:15 PM EST) WBC 5.59 3.40 - 10.80 10*3/mm3 07/28/2019 8:24 PM EST [facility] RBC 3.23(L) 3.77 - 5.28 10*6/mm3 07/28/2019 8:24 PM EST [facility] Hemoglobin 9.7(L) 12.0 - 15.9 g/dL 07/28/2019 8:24 PM [facility] Hematocrit 30.1(L) 34.0 - 46.6 % 07/28/2019 8:24 PM [facility] MCV 93.2 79.0 - 97.0 fL 07/28/2019 8:24 PM [facility] MCH 30.0 26.6 - 33.0 pg 07/28/2019 8:24 PM [facility] MCHC 32.2 31.5 - 35.7 g/dL 07/28/2019 8:24 PM [facility] RDW 13.9 12.3 - 15.4 % 07/28/2019 8:24 PM [facility] RDW-SD 46.9 37.0 - 54.0 fl 07/28/2019 8:24 PM [facility] MPV 12.7(H) 6.0 - 12.0 fL 07/28/2019 8:24 PM [facility] Platelets 176 140 - 450 10*3/mm3 07/28/2019 8:24 PM [facility] Neutrophil % 53.5 42.7 - 76.0 % 07/28/2019 8:24 PM [facility] Lymphocyte % 35.6 19.6 - 45.3 % 07/28/2019 8:24 PM [facility] Monocyte % 6.8 5.0 - 12.0 % 07/28/2019 8:24 PM [facility] Eosinophil % 3.2 0.3 - 6.2 % 07/28/2019 8:24 PM [facility] Basophil % 0.4 0.0 - 1.5 % 07/28/2019 8:24 PM [facility] Immature Grans % 0.5 0.0 - 0.5 % 07/28/2019 8:24 PM [facility] Neutrophils, Absolute 2.99 1.70 - 7.00 10*3/mm3 07/28/2019 8:24 PM [facility] Lymphocytes, Absolute 1.99 0.70 - 3.10 10*3/mm3 07/28/2019 8:24 PM EST [facility] Monocytes, Absolute 0.38 0.10 - 0.90 10*3/mm3 07/28/2019 8:24 PM EST [facility] Eosinophils, Absolute 0.18 0.00 - 0.40 10*3/mm3 07/28/2019 8:24 PM EST [facility] Basophils, Absolute 0.02 0.00 - 0.20 10*3/mm3 07/28/2019 8:24 PM EST [facility] Immature Grans, Absolute 0.03 0.00 - 0.05 10*3/mm3 07/28/2019 8:24 PM EST [facility] nRBC 0.0 0.0 - 0.2 /100 WBC 07/28/2019 8:24 PM EST [facility] Blood Venipuncture / Unknown 07/28/2019 8:15 PM EST 07/28/2019 8:20 PM EST Christopher Aggarwal MD LAB BLOOD ORDERABLES Fin al Result [facility]
[address] [place] [address], * Gold Top - SST (07/28/2019 8:15 PM EST) Extra Tube Hold for add-ons. 07/28/2019 9:30 PM EST [facility] Comment:Auto resulted. Blood Venipuncture / Unknown 07/28/2019 8:15 PM EST 07/28/2019 8:20 PM EST Christopher Aggarwal MD LAB BLOOD ORDER ONLY Fin al Result [facility]
[address] [place] [address], * Lavender Top (07/28/2019 8:15 PM EST) Extra Tube hold for add-on 07/28/2019 9:30 PM EST [facility] Comment:Auto resulted Blood Venipuncture / Unknown 07/28/2019 8:15 PM EST 07/28/2019 8:20 PM EST us Christopher Aggarwal MD LAB BLOOD ORDER ONLY Fin al Result Performing Organization Address City/[facility]/ZIP Co de Phone Number [facility]
[address] [place] [address], * Green Top (Gel) (07/28/2019 8:15 PM EST) Extra Tube Hold for add-ons. 07/28/2019 9:30 PM EST [facility] Comment:Auto resulted. Blood Venipuncture / Unknown 07/28/2019 8:15 PM EST 07/28/2019 8:20 PM EST us Christopher Aggarwal MD LAB BLOOD ORDER ONLY Fin al Result Performing Organization Address [facility] Co de Phone Number [facility]
[address] [place] [address], [place] [phone] * Light Blue Top (07/28/2019 8:15 PM EST) Extra Tube hold for add-on 07/28/2019 9:30 PM EST [facility] Comment:Auto resulted Blood Venipuncture / Unknown 07/28/2019 8:15 PM EST 07/28/2019 8:20 PM EST us Christopher Aggarwal MD LAB BLOOD ORDER ONLY Fin al Result Performing Organization Address City/[facility] Co de Phone Number [facility]
[address] [place] [address], [place] [phone] * Troponin (07/28/2019 8:15 PM EST) Troponin T <0.010 0.000 - 0.030 ng/mL 07/28/2019 8:45 PM EST [facility] Blood Venipuncture / Unknown 07/28/2019 8:15 PM EST 07/28/2019 8:20 PM EST Narrative [facility] - 07/28/2019 8:45 PM EST Troponin T Reference Range: <= 0.03 ng/mL- ?? Negative for AMI >0.03 ng/mL- ? Abnormal for myocardial necrosis. ??Clinicians would have to utilize clinical acumen, EKG, Troponin and serial changes to determine if it is an Acute Myocardial Infarction or myocardial injury due to an underlying chronic condition. Results may be falsely decreased if patient taking Biotin. us Christopher Aggarwal MD LAB BLOOD ORDERABLES Fin al Result [facility]
[address] [place] [address], [place] [phone] * (ABNORMAL) Comprehensive Metabolic Panel (07/28/2019 8:15 PM EST) Glucose 210(H) 65 - 99 mg/dL 07/28/2019 8:45 PM EST [facility] Comment:Glucose >180, Hemogl obin A1C recommended. BUN 62(H) 6 - 20 mg/dL 07/28/2019 8:45 PM EST [facility] Creatinine 4.75(H) 0.57 - 1.00 mg/dL 07/28/2019 8:45 PM EST [facility] Sodium 140 136 - 145 mmol/L 07/28/2019 8:45 PM EST [facility] Potassium 4.3 3.5 - 5.2 mmol/L 07/28/2019 8:45 PM EST [facility] Chloride 104 98 - 107 mmol/L 07/28/2019 8:45 PM EST [facility] CO2 19.5(L) 22.0 - 29.0 mmol/L 07/28/2019 8:45 PM EST [facility] Calcium 7.5(L) 8.6 - 10.5 mg/dL 07/28/2019 8:45 PM EST [facility] Total Protein 6.7 6.0 - 8.5 g/dL 07/28/2019 8:45 PM [facility] Albumin 3.80 3.50 - 5.20 g/dL 07/28/2019 8:45 PM EST [facility] ALT (SGPT) 25 1 - 33 U/L 07/28/2019 8:45 PM [facility] AST (SGOT) 18 1 - 32 U/L 07/28/2019 8:45 PM EST [facility] Alkaline Phosphatase 57 39 - 117 U/L 07/28/2019 8:45 PM [facility] Total Bilirubin <0.2(L) 0.2 - 1.2 mg/dL 07/28/2019 8:45 PM [facility] eGFR Non Amer 11(L) >60 mL/min/1.7 3 07/28/2019 8:45 PM [facility] Comment:<15 Indicative of ki dney failure. eGFR Amer 07/28/2019 8:45 PM [facility] Comment:<15 Indicative of ki dney failure. Globulin 2.9 gm/dL 07/28/2019 8:45 PM [facility] A/G Ratio 1.3 g/dL 07/28/2019 8:45 PM [facility] BUN/Creatinine Ratio 13.1 7.0 - 25.0 07/28/2019 8:45 PM [facility] Anion Gap 16.5(H) 5.0 - 15.0 mmol/L 07/28/2019 8:45 PM [facility] Blood Venipuncture / Unknown 07/28/2019 8:15 PM EST 07/28/2019 8:20 PM EST [facility] - 07/28/2019 8:45 PM EST GFR Normal >60 Chronic Kidney Disease <60 Kidney Failure <15 us Christopher Aggarwal MD LAB BLOOD ORDERABLES Fin al Result [facility]
[address] [place] [address], [place] [phone] documented in this encounter Visit Diagnoses Diagnosis Bad taste in mouth- Primary Chest pain, unspecified type documented in this encounter Administered Medications Inactive Administered Medications - up to 3 most recent administrations Medication Order MAR Action Action Date Dose Rate Site aluminum-magnesium hydroxide-simethicone (MAALOX MAX) 400-400-40 MG/5ML suspension 15 mL 15 mL, Oral, Once, On 07/28/19 at 2031, For 1 dose, Mix with viscous lidocaine in this panel Given 07/28/2019 8:50 PM EST 15 mL Lidocaine Viscous HCl (XYLOCAINE) 2 % mouth solution 15 mL 15 mL, Mouth/Throat, Once, On 07/28/19 at 2031, For 1 dose, Mix with alum / mag hydroxide / simeth (mylanta) in this panel If given for pain, use the following pain scale: Mild Pain = Pain Score of 1-3, CPOT 1-2 Moderate Pain = Pain Score of 4-6, CPOT 3-4 Severe Pain = Pain Score of 7-10, CPOT 5-8 Given 07/28/2019 8:50 PM EST 15 mL sodium chloride 0.9 % flush 10 mL 10 mL, Intravenous, As Needed, Line Care, Starting on 07/28/19 at 2004 documented in this encounter Active and Recently Administered Medications Times are shown in EST. Scheduled Medication Order 07/26/2019 07/27/2019 07/28/2019 aluminum-magnesium hydroxide-simethicone (MAALOX MAX) 400-400-40 MG/5ML suspension 15 mL (COMPLETED) 15 mL, Oral, Once, On 07/28/19 at 2031, For 1 dose, Mix with viscous lidocaine in this panel 2049 (Given - Provid er: Silvia Laird RN) Lidocaine Viscous HCl (XYLOCAINE) 2 % mouth solution 15 mL (COMPLETED) 15 mL, Mouth/Throat, Once, On 07/28/19 at 2031, For 1 dose, Mix with alum / mag hydroxide / simeth (mylanta) in this panel If given for pain, use the following pain scale: Mild Pain = Pain Score of 1-3, CPOT 1-2 Moderate Pain = Pain Score of 4-6, CPOT 3-4 Severe Pain = Pain Score of 7-10, CPOT 5-8 2049 (Given - Provid er: Silvia Laird RN) PRN Medication Order 07/26/2019 07/27/2019 07/28/2019 sodium chloride 0.9 % flush 10 mL 10 mL, Intravenous, As Needed, Line Care, Starting on 07/28/19 at 2004 documented in this encounter
--- OUTSIDE RECORDS SUMMARY | 2024-05-30 08:34 | XMS_ITS | Encounter Summary ---
[facility] Address [address] [place] [address] Care Team Providers Care Crossing Guard Name Role Phone Unavailable Primary Care Provider Unavailabl e Encounter Details Date Type Department Care Team (Late st Contact Info) Description 06/22/2019 7:40 AM EST Lab [facility] [address] [place] [address] Chronic kidney disease, stage IV [...] Associated Diagnosis Comments URINALYSIS, MICROSCOPIC ONLY Routine 06/22/2019 7:41 AM EST Chronic kidney disease, stage IV (severe) CBC WITH AUTO DIFFERENTIAL Routine 06/22/2019 7:41 AM EST Chronic kidney disease, stage IV (severe) IRON PROFILEC Routine 06/22/2019 7:41 AM EST Chronic kidney disease, stage IV (severe) PROTEIN, URINE, RANDOM Routine 06/22/2019 7:41 AM EST Chronic kidney disease, stage IV (severe) CREATININE URINE RANDOM (KIDNEY FUNCTION) GFR COMPONENT Routine 06/22/2019 7:41 AM EST Chronic kidney disease, stage IV (severe) VITAMIN D,25-HYDROXY Routine 06/22/2019 7:41 AM EST Chronic kidney disease, stage IV (severe) MANUAL DIFFERENTIAL Routine 06/22/2019 7 :41 AM EST Chronic kidney disease, stage IV (severe) URINALYSIS AND MICROSCOPIC Routine 06/22/2019 7:41 AM EST Chronic kidney disease, stage IV (severe) URINALYSIS WITHOUT MICROSCOPIC (NO CULTURE) Routine 06/22/2019 7:41 AM EST Chronic kidney disease, stage IV (severe) CBC AND DIFFERENTIAL Routine 06/22/2019 7:41 AM EST Chronic kidney disease, stage IV (severe) PTH, INTACT Routine 06/22/2019 7:41 AM EST Chronic kidney disease, stage IV (severe) FERRITIN Routine 06/22/2019 7:41 AM EST Chronic kidney disease, stage IV (severe) RENAL FUNCTION PANEL Routine 06/22/2019 7:41 AM EST Chronic kidney disease, stage IV (severe) documented in this encounter Results * (ABNORMAL) Manual Differential (06/22/2019 7:41 AM EST) Neutrophil % 67.4 42.7 - 76.0 % 06/22/2019 12:31 PM EST [facility] Lymphocyte % 27.4 19.6 - 45.3 % 06/22/2019 12:31 PM EST [facility] Monocyte % 3.2(L) 5.0 - 12.0 % 06/22/2019 12:31 PM EST [facility] Eosinophil % 2.1 0.3 - 6.2 % 06/22/2019 12:31 PM [facility] Neutrophils Absolute 5.01 1.70 - 7.00 10*3/mm3 06/22/2019 12:31 PM [facility] Lymphocytes Absolute 2.04 0.70 - 3.10 10*3/mm3 06/22/2019 12:31 PM [facility] Monocytes Absolute 0.24 0.10 - 0.90 10*3/mm3 06/22/2019 12:31 PM [facility] Eosinophils Absolute 0.16 0.00 - 0.40 10*3/mm3 06/22/2019 12:31 PM [facility] RBC Morphology Normal Normal 06/22/2019 12:31 PM [facility] Smudge Cells Slight/1+ None Seen 06/22/2019 12:31 PM [facility] Platelet Morphology Normal Normal 06/22/2019 12:31 PM [facility] Blood Venipuncture / Unknown 06/22/2019 7:41 AM EST 06/22/2019 8:19 AM EST us Ming Low MD LAB BLOOD ORDERABLES Final Res ult [facility]
[address] [place] [address], * Urinalysis, Microscopic Only - Urine, Clean Catch (06/22/2019 7:41 AM EST) RBC, UA 0-2 None Seen, 0-2 /HPF 06/22/2019 6:17 PM [facility] WBC, UA 0-2 None Seen, 0-2 /HPF 06/22/2019 6:17 PM [facility] Bacteria, UA None Seen None Seen /HPF 06/22/2019 6:17 PM [facility] Squamous Epithelial Cells, UA 0-2 None Seen, 0-2 /HPF 06/22/2019 6:17 PM [facility] Hyaline Casts, UA None Seen None Seen /LPF 06/22/2019 6:17 PM [facility] Methodology Automated Microscopy 06/22/2019 6:17 PM [facility] Urine Urine specimen collection, clean catch / Unknown Collection / Unknown 06/22/2019 7:41 AM EST 06/22/2019 8:59 AM EST Ming Low MD URINE ORDERABLES Final Result [facility]
[address] [place] [address], [place] [phone] * (ABNORMAL) Urinalysis without microscopic (no culture) - Urine, Clean Catch (06/22/2019 7:41 AM EST) Color, UA Yellow Yellow, Straw 06/22/2019 6:10 PM [facility] Appearance, UA Clear Clear 06/22/2019 6:10 PM [facility] pH, UA 7.0 5.0 - 8.0 06/22/2019 6:10 PM [facility] Specific [place], UA 1.010 1.005 - 1.030 06/22/2019 6:10 PM [facility] Glucose, UA 250 mg/dL (1+)(A) Negative 06/22/2019 6:10 PM [facility] Ketones, UA Negative Negative 06/22/2019 6:10 PM [facility] Bilirubin, UA Negative Negative 06/22/2019 6:10 PM [facility] Blood, UA Negative Negative 06/22/2019 6:10 PM [facility] Protein, UA 100 mg/dL (2+)(A) Negative 06/22/2019 6:10 PM [facility] Leuk Esterase, UA Negative Negative 06/22/2019 6:10 PM [facility] Nitrite, UA Negative Negative 06/22/2019 6:10 PM [facility] Urobilinogen, UA 0.2 E.U./dL 0.2 - 1.0 E.U./dL 06/22/2019 6:10 PM [facility] Urine Urine specimen collection, clean catch / Unknown Collection / Unknown 06/22/2019 7:41 AM EST 06/22/2019 8:59 AM EST Ming Low MD URINE ORDERABLES Final Result [facility]
[address] [place] [address], * (ABNORMAL) CBC Auto Differential (06/22/2019 7:41 AM EST) WBC 7.43 3.40 - 10.80 10*3/mm3 06/22/2019 12:31 PM [facility] RBC 3.75(L) 3.77 - 5.28 10*6/mm3 06/22/2019 12:31 PM [facility] Hemoglobin 10.6(L) 12.0 - 15.9 g/dL 06/22/2019 12:31 PM [facility] Hematocrit 33.2(L) 34.0 - 46.6 % 06/22/2019 12:31 PM [facility] MCV 88.5 79.0 - 97.0 fL 06/22/2019 12:31 PM [facility] MCH 28.3 26.6 - 33.0 pg 06/22/2019 12:31 PM [facility] MCHC 31.9 31.5 - 35.7 g/dL 06/22/2019 12:31 PM [facility] RDW 13.3 12.3 - 15.4 % 06/22/2019 12:31 PM [facility] RDW-SD 43.0 37.0 - 54.0 fl 06/22/2019 12:31 PM [facility] MPV 13.9(H) 6.0 - 12.0 fL 06/22/2019 12:31 PM [facility] Platelets 205 140 - 450 10*3/mm3 06/22/2019 12:31 PM EST [facility] Blood Venipuncture / Unknown 06/22/2019 7:41 AM EST 06/22/2019 8:19 AM EST us Ming Low MD LAB BLOOD ORDERABLES Final Res ult Performing Organization Address [facility] Phone Number [facility]
[address] [place] [address], * (ABNORMAL) Vitamin D 25 Hydroxy (06/22/2019 7:41 AM EST) 25 Hydroxy, Vitamin D 16.0(L) 30.0 - 100.0 ng/ml 06/22/2019 12:28 PM EST [facility] Blood Venipuncture / Unknown 06/22/2019 7:41 AM EST 06/22/2019 8:19 AM EST Narrative [facility] - 06/22/2019 12:28 PM EST Reference Range for Total Vitamin D 25(OH) Deficiency <20.0 ng/mL Insufficiency 21-29 ng/mL Sufficiency 30-100 ng/mL Toxicity >100 ng/ml us Ming Low MD LAB BLOOD ORDERABLES Final Res ult Performing Organization Address [facility] Co de Phone Number [facility]
[address] [place] [address], * (ABNORMAL) Renal Function Panel (06/22/2019 7:41 AM EST) Glucose 284(H) 65 - 99 mg/dL 06/22/2019 12:22 PM EST [facility] BUN 51(H) 6 - 20 mg/dL 06/22/2019 12:22 PM EST [facility] Creatinine 4.07(H) 0.57 - 1.00 mg/dL 06/22/2019 12:22 PM EST [facility] Sodium 138 136 - 145 mmol/L 06/22/2019 12:22 PM [facility] Potassium 4.8 3.5 - 5.2 mmol/L 06/22/2019 12:22 PM [facility] Chloride 99 98 - 107 mmol/L 06/22/2019 12:22 PM [facility] CO2 23.7 22.0 - 29.0 mmol/L 06/22/2019 12:22 PM [facility] Calcium 8.2(L) 8.6 - 10.5 mg/dL 06/22/2019 12:22 PM [facility] Albumin 4.00 3.50 - 5.20 g/dL 06/22/2019 12:22 PM [facility] Phosphorus 5.0(H) 2.5 - 4.5 mg/dL 06/22/2019 12:22 PM [facility] Anion Gap 15.3(H) 5.0 - 15.0 mmol/L 06/22/2019 12:22 PM [facility] BUN/Creatinine Ratio 12.5 7.0 - 25.0 06/22/2019 12:22 PM EST [facility] eGFR Non Amer 13(L) >60 mL/min/1.7 3 06/22/2019 12:22 PM EST [facility] Comment:<15 Indicative of ki dney failure. eGFR Amer 06/22/2019 12:22 PM [facility] Comment:<15 Indicative of ki dney failure. Blood Venipuncture / Unknown 06/22/2019 7:41 AM EST 06/22/2019 8:19 AM EST Narrative [facility] - 06/22/2019 12:22 PM EST GFR Normal >60 Chronic Kidney Disease <60 Kidney Failure <15 us Ming Low MD LAB BLOOD ORDERABLES Final Res ult [facility]
[address] [place] [address], * Protein, Urine, Random - Urine, Clean Catch (06/22/2019 7:41 AM EST) Total Protein, Urine 90.0 mg/dL 06/22/2019 7:24 PM EST [facility] Urine Urine specimen collection, clean catch / Unknown Collection / Unknown 06/22/2019 7:41 AM EST 06/22/2019 8:59 AM EST Narrative [facility] - 06/22/2019 7:24 PM EST Reference intervals for random urine have not been established. Clinical usage is dependent upon physician's interpretation in combination with other laboratory tests. us Ming Low MD URINE ORDERABLES Final Result Performing Organization Address [facility] Phone Number [facility]
[address] [place] [address], * (ABNORMAL) PTH, Intact (06/22/2019 7:41 AM EST) PTH, Intact 339.0(H) 15.0 - 65.0 pg/mL 06/22/2019 12:20 PM EST [facility] Blood Venipuncture / Unknown 06/22/2019 7:41 AM EST 06/22/2019 8:19 AM EST us Ming Low MD LAB BLOOD ORDERABLES Final Res ult Performing Organization Address [facility] Phone Number [facility]
[address] [place] [address], * Ferritin (06/22/2019 7:41 AM EST) Ferritin 78.20 13.00 - 150.00 ng/mL 06/22/2019 12:28 PM EST [facility] Blood Venipuncture / Unknown 06/22/2019 7:41 AM EST 06/22/2019 8:19 AM EST us Ming Low MD LAB BLOOD ORDERABLES Final Res ult Performing Organization Address [facility] Co wa Phone Number [facility]
[address] [place] [address], [place] [phone] * Creatinine, Urine, Random - Urine, Clean Catch (06/22/2019 7:41 AM EST) Creatinine, Urine 28.5 mg/dL 06/22/2019 7:24 PM EST [facility] Urine Urine specimen collection, clean catch / Unknown Collection / Unknown 06/22/2019 7:41 AM EST 06/22/2019 8:59 AM EST Narrative [facility] - 06/22/2019 7:24 PM EST Reference intervals for random urine have not been established. Clinical usage is dependent upon physician's interpretation in combination with other laboratory tests. us Ming Low MD URINE ORDERABLES Final Result Performing Organization Address [facility] Phone Number [facility]
[address] [place] [phone], * (ABNORMAL) Iron Profile (06/22/2019 7:41 AM EST) Iron 45 37 - 145 mcg/dL 06/22/2019 12:22 PM EST [facility] Iron Saturation (TSAT) 10(L) 20 - 50 % 06/22/2019 12:22 PM EST [facility] Transferrin 297 200 - 360 mg/dL 06/22/2019 12:22 PM EST [facility] TIBC 443 298 - 536 mcg/dL 06/22/2019 12:22 PM EST [facility] Blood Venipuncture / Unknown 06/22/2019 7:41 AM EST 06/22/2019 8:19 AM EST us Ming Low MD LAB BLOOD ORDERABLES Final Res ult Performing Organization Address [facility] Co de Phone Number [facility]
[address] [place] [address], documented in this encounter Visit Diagnoses Diagnosis Chronic kidney disease, stage IV (severe) Chronic kidney disease, Stage IV (severe) documented in this encounter
--- OUTSIDE RECORDS SUMMARY | 2024-05-30 08:34 | XMS_ITS | Encounter Summary ---
[facility] Address [address] [id number] Care Team Providers Care Metal Plater Name Role Phone Unavailable Primary Care Provider Unavailabl e Reason for Visit * Reason Comments Flu Symptoms Encounter Details Date Type Department Care Team (Late st Contact Info) Description 09/14/2019 5:20 PM EST - 09/14/2019 6:24 PM EST Emergency [facility] [address] [place] [phone] Krissy Bowman MD Viral upper respiratory tract infection (Primary Dx) Discharge Disposition: Home or Self [...] Sign Reading Time Taken Comments Blood Pressure 164/95 09/14/2019 5:22 PM EST Pulse 84 09/14/2019 5:22 PM EST Temperature 37.1 ??C (98.7 ??F) 09/14/2019 5:22 PM ES T Respiratory Rate 18 09/14/2019 5:22 PM EST Oxygen Saturation 98% 09/14/2019 5:22 PM EST Inhaled Oxygen Concentration - - Weight 103 kg (226 lb) 09/14/2019 5:22 PM EST Height 165.1 cm (5' 5 ) 09/14/2019 5:22 PM EST Body Mass Index 37.61 09/14/2019 5:22 PM EST documented in this encounter Discharge Instructions * Attachments The following attachments cannot be sent through Care Everywhere. * Upper Respiratory Infection Adult [id number] (Maltese) * Cough Adult (Maltese) documented in this encounter Medications at Time [...] encounter ED Notes * Maikol Quiroz Jr., ANDREA-Todd - 09/14/2019 5:52 PM EST Subjective 29-year-old female presents with cough, congestion, aches and pains, the symptoms have been going on for 3 days. History provided by: Patient technical instructor used: No URI Presenting symptoms: congestion and cough Severity: Mild Onset quality: Gradual Timing: Constant Progression: Waxing and waning Chronicity: New Relieved by: Nothing Worsened by: Nothing Ineffective treatments: None tried Associated symptoms: myalgias Review of Systems HENT: Positive for congestion. Respiratory: Positive for cough. Musculoskeletal: Positive for myalgias. All other systems reviewed and are negative. [...] SECTION 10/17/2012 ??? SECTION ??? INDUCED 2006 [facility] History reviewed. No pertinent family history. Social [...] appears well- developed and well-nourished. HENT: Head: Normocephalic. Eyes: EOM are normal. Neck: Normal range of motion. Neck supple. Cardiovascular: Normal rate and regular rhythm. Pulmonary/Chest: Effort normal and breath sounds normal. Abdominal: Soft. Bowel sounds are normal. Musculoskeletal: Normal range of motion. Neurological: She is alert and oriented to person, place, and time. She has normal reflexes. Skin: Skin is warm and dry. Psychiatric: She has a normal mood and affect. Her behavior is normal. Nursing note and vitals reviewed. Procedures ED Course MDM Number of Diagnoses or Management Options Viral upper respiratory tract infection: new and requires workup Amount and/or Complexity of Data Reviewed Clinical lab tests: reviewed Risk of Complications, Morbidity, and/or Mortality Presenting problems: minimal Diagnostic procedures: minimal Management options: minimal Patient Progress Patient progress: stable Final diagnoses: Viral upper respiratory tract infection Maikol Quiroz Jr., PA-C 09/15/19 1248 Cosigned by Krissy Bowman MD at 09/15/2019 6:07 PM EST Associated attestation - Krissy Bowman MD - 09/15/2019 6:07 PM EST For this patient encounter, I reviewed the DARK ROOM ATTENDANT or PA documentation, treatment plan, and medical decision making. Krissy Bowman MD 09/15/2019 6:07 PM documented in this encounter Plan of Treatment Not on file documented as of this encounter Procedures Procedure Name Priority Date/Time Associated Diagnosis Comments INFLUENZA ANTIGEN, RAPID STAT 09/14/2019 5:25 PM EST documented in this encounter Results * Influenza Antigen, Rapid - Swab, Nasopharynx (09/14/2019 5:25 PM EST) Influenza A Ag, EIA Negative Negative 09/14/2019 5:45 PM EST [facility] Influenza B Ag, EIA Negative Negative 09/14/2019 5:45 PM EST [facility] Swab Nasopharyngeal structure / Unknown Collection / Unknown 09/14/2019 5:25 PM EST 09/14/2019 5:28 PM EST us Krissy Bowman MD MICROBIOLOGY - GENERAL ORDERABLES Final Result [facility]
[address] [phone], documented in this encounter Visit Diagnoses Diagnosis Viral upper respiratory tract infection- Primary Acute upper respiratory infections of unspecified site documented in this encounter
--- OUTSIDE RECORDS SUMMARY | 2024-05-30 08:34 | XMS_ITS | Encounter Summary ---
[facility] [address] [place] [id number] Care Team Providers Care Pathology Supervisor Name Role Phone Unavailable Primary Care Provider Unavailabl e Reason for Visit * Reason Comments Oral Swelling Encounter Details Date Type Department Care Team (Late st Contact Info) Description 02/06/2020 6:15 PM EDT - 02/06/2020 7:26 PM EDT Emergency [facility] EM[facility] [address] [place] [phone] Christopher Aggarwal MD Finley, Paul W, DO Foreign body in skin (Primary Dx) Discharge Disposition: Home or Self [...] Sign Reading Time Taken Comments Blood Pressure 177/103 02/06/2020 5:49 PM EDT Pulse 79 02/06/2020 5:49 PM EDT Temperature 37.3 ??C (99.2 ??F) 02/06/2020 5:49 PM ED T Respiratory Rate 16 02/06/2020 5:49 PM EDT Oxygen Saturation 100% 02/06/2020 5:49 PM EDT Inhaled Oxygen Concentration - - Weight 100 kg (221 lb 6.4 oz) 02/06/2020 5:49 PM EDT Height 165.1 cm (5' 5 ) 02/06/2020 5:49 PM EDT Body Mass Index 36.84 02/06/2020 5:49 PM EDT documented in this encounter Discharge Instructions * Discharge Instructions* Pearl Wakefield APRN - 02/06/2020 7:18 PM EDT Keep area clean and dry documented in this encounter Medications at Time [...] as of this encounter ED Notes * WakefieldPearl Bonita, COMPOSITE ENGINEER - 02/06/2020 7:12 PM EDT Images from the original note were not included. Subjective History of Present Illness This is a 29 year old female who comes in today requesting to have a lip piercing removed. She reports she had it pierced 4 days ago and now she wants it out because it is bother her. She denies any redness or edema Review of Systems Constitutional: Negative. HENT: Negative. Eyes: Negative. Respiratory: Negative. Cardiovascular: Negative. Gastrointestinal: Negative. Endocrine: Negative. Genitourinary: Negative. Musculoskeletal: Negative. Skin: Positive for wound. Allergic/Immunologic: Negative. Neurological: Negative. Hematological: Negative. Psychiatric/Behavioral: Negative. Past 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: Diagnosis [...] ??? 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 INDUCED 2006 [facility] History reviewed. No pertinent family history. Social [...] and well-nourished. HENT: Head: Normocephalic and atraumatic. Eyes: Pupils are equal, round, and reactive to light. Neck: Normal range of motion. Neck supple. Cardiovascular: Normal rate and regular rhythm. Pulmonary/Chest: Effort normal and breath sounds normal. Abdominal: Soft. Musculoskeletal: Normal range of motion. Neurological: She is alert and oriented to person, place, and time. Skin: Skin is warm and dry. Nursing note and vitals reviewed. Procedures ED Course MDM Number of Diagnoses or Management Options Diagnosis management comments: I have instructed the patient to follow up with her PCP if any redness or edema occurs. She is agreeable to this plan of care. Amount and/or Complexity of Data Reviewed Review and summarize past medical records: yes Discuss the patient with other providers: yes Risk of Complications, Morbidity, and/or Mortality Diagnostic procedures: minimal Management options: low Final diagnoses: Foreign body in skin Pearl Wakefield APRN 02/06/201917 Cosigned by Jaquan Arenas, at 02/06/2020 10:39 PM EDT Associated attestation - Jaquan Arenas DO - 02/06/2020 10:39 PM EDT For this patient encounter, I reviewed the GAS BOOSTER ENGINEER or PA documentation, treatment plan, and medical decision making. Jaquan Arenas DO 02/06/2020 22:39 documented in this encounter Plan of Treatment Not on file documented as of this encounter Visit Diagnoses Diagnosis Foreign body in skin- Primary Other, multiple, and unspecified sites, superficial foreign body (splinter), without major open wound and without mention of infection documented in this encounter
--- OUTSIDE RECORDS SUMMARY | 2024-05-30 08:35 | XMS_ITS | Encounter Summary ---
Author Organization [facility] Address [address] [place] [address] Care Team Providers Care Aquarist Name Role Phone Unavailable Primary Care Provider Unavailabl e Reason for Visit * Reason Comments Arm Injury Bronchitis Encounter Details Date Type Department Care Team (Late st Contact Info) Description 05/07/2019 7:53 PM EDT - 05/07/2019 10:02 PM EDT Emergency [facility] [address] [place] [id number] Dominik Rizo MD [address] [place] [address] Sprain of right shoulder, unspecified shoulder sprain type, initial encounter (Primary Dx) Discharge Disposition: Home [...] Sign Reading Time Taken Comments Blood Pressure 150/96 05/07/2019 10:00 PM EDT Pulse 90 05/07/2019 10:00 PM EDT Temperature 37.1 ??C (98.7 ??F) 05/07/2019 6:26 PM ED T Respiratory Rate 16 05/07/2019 10:00 PM EDT Oxygen Saturation 98% 05/07/2019 10:00 PM EDT Inhaled Oxygen Concentration - - Weight 104 kg (229 lb) 05/07/2019 6:26 PM EDT Height 165.1 cm (5' 5 ) 05/07/2019 6:26 PM EDT Body Mass Index 38.11 05/07/2019 6:26 PM EDT documented in this encounter Discharge Instructions * Attachments The following attachments cannot be sent through Care Everywhere. * Shoulder Sprain (Colombian) documented in this encounter Medications at Time [...] ED Notes * Rashard Moody PA-C - 05/07/2019 9:14 PM EDT Subjective This patient states that she was unloading things out of storage unit earlier today and felt a pop in her right shoulder/clavicular area and has been having pain since. She also states that she hasbronchitis and wants to be evaluated for that however she was just here yesterday was evaluated andwas given antibiotics. She states the pain radiates up in her right lateral neck and is worse with p alpation and movement of the area. Review of Systems Respiratory: Positive for cough. Musculoskeletal: Pain to the right shoulder and clavicular area All other systems reviewed and are negative. [...] SECTION 10/17/2012 ??? SECTION ??? INDUCED 2006 [facility] History reviewed. No pertinent family [...] History Encounter Objective Physical Exam Constitutional: She appears well-developed and well-nourished. HENT: Head: Normocephalic and atraumatic. Neck: Normal range of motion. Cardiovascular: Normal rate and regular rhythm. Pulmonary/Chest: Effort normal. Musculoskeletal: Normal range of motion. Tenderness palpation of the right clavicle and right lateral neck. No deformity or step-offs. 2+ radial pulse on the right. No elbow or wrist pain Neurological: She is alert. Skin: Skin is warm and dry. Psychiatric: She has a normal mood and affect. Her behavior is normal. Thought content normal. Nursing note and vitals reviewed. Procedures ED Course X-ray without any acute bony abnormality reviewed with Dr. Rizo. Patient states her arm is most comfortable when it by the other elbow bent at 90 degrees we will give her a sling for comfort but encouraged her to move it frequently as to prevent frozen shoulder. MDM Final diagnoses: None Rashard Moody PA-C 05/07/192131 Cosigned by Dominik Rizo MD at 05/08/2019 7:04 AM EDT Associated attestation - Dominik Rizo MD - 05/08/2019 7:04 AM EDT For this patient encounter, I reviewed the [employer]PER[employer] or PA documentation, treatment plan, and medical decision making. Dominik Rizo MD 05/08/2019 7:04 AM documented in this encounter Plan of Treatment Not on file documented as of this encounter Procedures Procedure Name Priority Date/Time Associated Diagnosis Comments XR SHOULDER 2+ VW RIGHT STAT 05/07/2019 9:11 PM EDT documented in this encounter Results * XR Shoulder 2+ View Right (05/07/2019 9:11 PM EDT) Anatomical Region Laterality Modality Upper Extremities, Shoulder Right Radi ographic Imaging 05/08/2019 8:21 AM EDT Impressions 05/08/2019 8:21 AM EDT Unremarkable exam. This report was finalized on 05/08/2019 8:21 AM by Elvis Martinez MD. Narrative 05/08/2019 8:21 AM EDT PROCEDURE: XR SHOULDER 2+ VW RIGHT- THREE VIEW HISTORY: shoulder/clavicular pain FINDINGS: ??Three views show no evidence of an acute, displaced fracture or dislocation of the visualized bony architecture. ??The joint spaces appear normal. Procedure Note Elvis Martinez MD - 05/08/2019 PROCEDURE: XR SHOULDER 2+ VW RIGHT- THREE VIEW HISTORY: shoulder/clavicular pain FINDINGS: Three views show no evidence of an acute, displaced fracture or dislocation of the visualized bony architecture. The joint spaces appear normal. IMPRESSION: Unremarkable exam. This report was finalized on 05/08/2019 8:21 AM by Elvis Martinez MD. Rashard Moody PA-C IMG DIAGNOSTIC ANURAG GING ORDERABLES Final Result documented in this encounter Visit Diagnoses Diagnosis Sprain of right shoulder, unspecified shoulder sprain type, initial encounter- Primary documented in this encounter
--- OUTSIDE RECORDS SUMMARY | 2024-05-30 08:35 | XMS_ITS | Encounter Summary ---
Author Organization [facility] Address [address] [place] [address] Care Team Providers Care Inventory Worker Name Role Phone Unavailable Primary Care Provider Unavailabl e Reason for Visit * (Emergency) - Closed Specialty Diagnoses / Procedures Referred By Contac t Referred To Contact Radiology Diagnoses Left leg pain Procedures XR Tibia Fibula 2 View Left Thomas, Fabiola Villafuerte MD [address] [place] [phone] Phone: tel: fax: Referral ID Status Reason Start Date Expiration Date Visits Re quested Visits Authorized [id number] Closed 01/29/2019 01/29/2020 1 1 Encounter Details Date Type Department Care Team (Latest Contact Info) Description 01/29/2019 3:33 PM EDT - 01/29/2019 11:59 PM EDT Hospital Encounter [facility] XRAY [address] [place] [phone] Discharge Disposition: Home or Self Care Social History Tobacco Use Types Packs/Day Years Used Date Smoking Tobacco: Some Days Cigarettes 2 10 Alcohol Use Standard Drinks/Week Comments No [...] 1 capsule by mouth Daily. 02/16/20 23 cefdinir (OMNICEF) 300 MG capsule Take 1 capsule by mouth 2 (Two) Times a Day. 14 capsule 12/21/2018 02/14/20 19 cefdinir (OMNICEF) 300 MG capsule Take 1 capsule by mouth Daily. 7 capsule 12/25/2018 02/14/20 19 cyclobenzaprine (FLEXERIL) 5 MG tablet Take 1 tablet by mouth 3 (Three) Times a Day As Needed for Muscle Spasms. 12 tablet 10/31/2018 02/16/20 23 fenofibrate (TRICOR) 145 MG tablet Take 160 mg by mouth Every Other Day. 02/16/20 23 gabapentin (NEURONTIN) 300 MG capsule BID 0 12/23/2015 02/16/20 23 HYDROcodone-acetami nophen (NORCO) 5-325 MG per tablet Take 1 tablet by mouth Every 6 (Six) Hours As Needed for Moderate Pain . 12 tablet 09/01/2018 02/16/20 23 naproxen (NAPROSYN) 500 MG tablet Take 1 tablet by mouth 2 (Two) Times a Day With Meals. 20 tablet 10/09/2018 05/03/20 19 ondansetron (ZOFRAN) 4 MG tablet Take 1 tablet by mouth Every 8 (Eight) Hours As Needed for Nausea or Vomiting. 20 tablet 12/25/2018 05/03/20 19 phenazopyridine (PYRIDIUM) 200 MG tablet Take 1 tablet by mouth 3 (Three) Times a Day As Needed for bladder spasms. 6 tablet 12/21/2018 05/03/20 19 traMADol (ULTRAM) 50 MG tablet Take 1 tablet by mouth Every 6 (Six) Hours As Needed for Moderate Pain or Severe Pain . 6 tablet 11/02/2018 02/16/20 23 documented as of this encounter Plan of Treatment Not on file documented as of this encounter Procedures Procedure Name Priority Date/Time Associated Diagnosis Comments XR TIBIA FIBULA 2 VW LEFT STAT 01/29/2019 3:59 PM EDT Left leg pain documented in this encounter Results * XR Tibia Fibula 2 View Left (01/29/2019 3:59 PM EDT) Anatomical Region Laterality Modality Lower Extremities, Lower Leg Left Rad iographic Imaging 01/29/2019 4:31 PM EDT Impressions 01/30/2019 7:38 AM EDT 1. Soft tissue edema near the left tibia/fibula. 2. Degenerative changes within the lumbar spine. Consider MRI if symptoms persist. This report was finalized on 01/30/2019 7:38 AM by Surendra Pike MD. Narrative 01/30/2019 7:38 AM EDT PELVIS, LEFT HIP, LEFT TIBIA/FIBULA AND LUMBAR SPINE INDICATION: Back pain. Hip pain. Leg pain. FINDINGS: 2 views of the left hip plus frontal view of the pelvis. No dislocation, bony destruction or fracture. Joint spaces appear relatively preserved. Five views of the lumbar spine demonstrate loss of lordosis. Small Schmorl's nodes in the lower thoracic and upper lumbar spine are likely similar to 10/09/2018. No compression deformity or subluxation. Mild thoracolumbar curve convex to the right is also unchanged. Mild lower lumbar facet arthritis. Two views of the left tibia/fibula demonstrate some soft tissue edema. No dislocation, bony destruction or fracture. Procedure Note Janak Pike MD - 01/30/2019 PELVIS, LEFT HIP, LEFT TIBIA/FIBULA AND LUMBAR SPINE INDICATION: Back pain. Hip pain. Leg pain. FINDINGS: 2 views of the left hip plus frontal view of the pelvis. No dislocation, bony destruction or fracture. Joint spaces appear relatively preserved. Five views of the lumbar spine demonstrate loss of lordosis. Small Schmorl's nodes in the lower thoracic and upper lumbar spine are likely similar to 10/09/2018. No compression deformity or subluxation. Mild thoracolumbar curve convex to the right is also unchanged. Mild lower lumbar facet arthritis. Two views of the left tibia/fibula demonstrate some soft tissue edema. No dislocation, bony destruction or fracture. IMPRESSION: 1. Soft tissue edema near the left tibia/fibula. 2. Degenerative changes within the lumbar spine. Consider MRI if symptoms persist. This report was finalized on 01/30/2019 7:38 AM by Surendra Pike MD. Fabiola Guzman MD IMG DIAGNOSTIC IMAGING ORDER BERTIN Final Result documented in this encounter Visit Diagnoses Not on filedocumented in this encounter
--- OUTSIDE RECORDS SUMMARY | 2024-05-30 08:35 | XMS_ITS | Encounter Summary ---
[facility] Address [address] [place] [address] Care Team Providers Care Cuff Matcher Name Role Phone Unavailable Primary Care Provider Unavailabl e Reason for Visit * Reason Comments Headache Encounter Details Date Type Department Care Team (Late st Contact Info) Description 01/02/2019 9:25 PM EDT - 01/02/2019 10:49 PM EDT Emergency [facility] [address] [place] [id number] Mickey Cerda MD [address] [place] [address] Headache, unspecified headache type (Primary Dx); Chills Discharge Disposition: Home or Self Care Social [...] Sign Reading Time Taken Comments Blood Pressure 138/90 01/02/2019 10:46 PM EDT Pulse 90 01/02/2019 10:46 PM EDT Temperature 36.7 ??C (98 ??F) 01/02/2019 10:46 PM EDT Respiratory Rate 20 01/02/2019 10:46 PM EDT Oxygen Saturation 98% 01/02/2019 10:46 PM EDT Inhaled Oxygen Concentration - - Weight 98.9 kg (218 lb) 01/02/2019 9:20 PM EDT Height 165.1 cm (5' 5 ) 01/02/2019 9:20 PM EDT Body Mass Index 36.28 01/02/2019 9:20 PM EDT documented in this encounter Discharge Instructions * Attachments The following attachments cannot be sent through Care Everywhere. * General Headache Without Cause [id number] (Citizen [place] documented in this encounter Medications at Time [...] as of this encounter ED Notes * Mickey Cerda MD - 01/02/2019 9:41 PM EDT Subjective History of Present Illness 28-year-old female with a history of chronic kidney disease, chronic constipation presenting with 4hours of nausea, vomiting, chills, headache, body aches. Has not taken anything for this yet. Her glucoses have been stably in the low 200s. She does have some dysuria and is on Ceftin ear but statesthat the dysuria has not gotten any better. Describes her headache as dull, behind her eyes, somewhat similar to headaches she has had in the past. Gradual onset. Denies any other specific symptoms. Review of Systems Constitutional: Positive for chills. Gastrointestinal: Positive for nausea and vomiting. Genitourinary: Positive for dysuria. Neurological: Positive for headaches. All other systems reviewed and are negative. [...] 11/08/2015 ??? Sinusitis ??? Urinary tract infection No Known Allergies Past Surgical History: Procedure Laterality Date ??? SECTION 10/17/2012 ??? SECTION ??? INDUCED 2006 [facility], [facility] History reviewed. No pertinent family history. Social History Socioeconomic History ??? Marital status: Spouse name: Not on file ??? Number of children: Not on file ??? Years of education: Not on file ??? Highest education level: Not on file Tobacco Use ??? Smoking status: Current Some Day Smoker Packs/day: 2.00 Years: 10.00 Pack years: 20.00 Types: Cigarettes Substance and Sexual Activity ??? Alcohol use: No Frequency: Never ??? Drug use: No ??? Sexual activity: Yes control/protection: Pill, None, Surgical Social History Narrative Merged History Encounter Objective Physical Exam Constitutional: She is oriented to person, place, and time. She appears well- developed and well-nourished. No distress. HENT: Head: Normocephalic. Mouth/Throat: Oropharynx is clear and moist. No oropharyngeal exudate. Eyes: Right eye exhibits no discharge. Left eye exhibits no discharge. No scleral icterus. Neck: Neck supple. No tracheal deviation present. Cardiovascular: Normal rate, regular rhythm, normal heart sounds and intact distal pulses. Exam reveals no gallop and no friction rub. No murmur heard. Pulmonary/Chest: Effort normal and breath sounds normal. No stridor. No respiratory distress. She has no wheezes. She has no rales. Abdominal: Soft. She exhibits no distension and no mass. There is no tenderness. There is no rebound and no guarding. Insulin pump in RLQ Musculoskeletal: She exhibits no edema or deformity. Neurological: She is alert and oriented to person, place, and time. Skin: Skin is warm and dry. She is not diaphoretic. No erythema. No pallor. Psychiatric: She has a normal mood and affect. Her behavior is normal. Nursing note and vitals reviewed. Procedures ED Course MDM 28-year-old female here with chills, nausea vomiting, dysuria, and headache. Afebrile, vital signs stable. Unclear etiology of her multiple symptoms with concern for possible pyelonephritis versus viral syndrome. Will send labs, treat with fluids, antiemetics, Tylenol and reassess. 10:40 PM lab work shows elevated baseline creatinine and mild leukocytosis but otherwise reassuring. Patient has some improvement on her symptoms since arrival. Will give a dose of Fioricet and the patient is comfortable going home at this time. Discussed return to care precautions. Final diagnoses: Headache, unspecified headache type Chills Mickey Cerda MD 01/02/19 2241 documented in this encounter Plan of Treatment Not on file documented as of this encounter Procedures Procedure Name Priority Date/Time Associated Diagnosis Comments URINALYSIS, MICROSCOPIC ONLY STAT 01/02/2019 9:51 PM EDT URINALYSIS W/ CULTURE IF INDICATED STAT 01/02/2019 9:51 PM EDT CBC WITH AUTO DIFFERENTIAL STAT 01/02/2019 9:50 PM EDT CBC AND DIFFERENTIAL STAT 01/02/2019 9:50 PM EDT COMPREHENSIVE METABOLIC PANEL STAT 01/02/2019 9:50 PM EDT documented in this encounter Results * (ABNORMAL) Urinalysis, Microscopic Only - Urine, Clean Catch (01/02/2019 9:51 PM EDT) RBC, UA 3-5(A) None Seen /HPF 01/02/2019 10:12 PM EDT [facility] WBC, UA None Seen None Seen /HPF 01/02/2019 10:12 PM EDT [facility] Bacteria, UA Trace(A) None Seen /HPF 01/02/2019 10:12 PM EDT [facility] Squamous Epithelial Cells, UA 3-6(A) None Seen, 0-2 /HPF 01/02/2019 10:12 PM EDT [facility] Hyaline Casts, UA None Seen None Seen /LPF 01/02/2019 10:12 PM EDT [facility] Mucus, UA Trace None Seen, Trace /HPF 01/02/2019 10:12 PM EDT [facility] Methodology Manual Light Microscopy 01/02/2019 10:12 PM EDT [facility] Urine Urine specimen collection, clean catch / Unknown Collection / Unknown 01/02/2019 9:51 PM EDT 01/02/2019 9:58 PM EDT us Mickey Cerda MD URINE ORDERABLES Final Resu lt [facility]
[address] [id number], * (ABNORMAL) Urinalysis With Culture If Indicated - Urine, Clean Catch (01/02/2019 9:51 PM EDT) Color, UA Yellow Yellow, Straw 01/02/2019 10:12 PM EDT [facility] Appearance, UA Clear Clear 01/02/2019 10:12 PM EDT [facility] pH, UA 6.5 5.0 - 8.0 01/02/2019 10:12 PM EDT [facility] Specific [place], UA 1.013 1.005 - 1.030 01/02/2019 10:12 PM EDT [facility] Glucose, UA 100 mg/dL (Trace)(A) Negative 01/02/2019 10:12 PM EDT [facility] Ketones, UA Negative Negative 01/02/2019 10:12 PM EDT [facility] Bilirubin, UA Negative Negative 01/02/2019 10:12 PM EDT [facility] Blood, UA Trace(A) Negative 01/02/2019 10:12 PM EDT [facility] Protein, UA >=300 mg/dL (3+)(A) Negative 01/02/2019 10:12 PM EDT [facility] Leuk Esterase, UA Negative Negative 01/02/2019 10:12 PM EDT [facility] Nitrite, UA Negative Negative 01/02/2019 10:12 PM EDT [facility] Urobilinogen, UA 0.2 E.U./dL 0.2 - 1.0 E.U./dL 01/02/2019 10:12 PM EDT [facility] Urine Urine specimen collection, clean catch / Unknown Collection / Unknown 01/02/2019 9:51 PM EDT 01/02/2019 9:58 PM EDT us Mickey Cerda MD URINE ORDERABLES Final Resu lt [facility]
[address] [id number], * (ABNORMAL) CBC Auto Differential (01/02/2019 9:50 PM EDT) WBC 10.29 3.40 - 10.80 10*3/mm3 01/02/2019 10:01 PM EDT [facility] RBC 3.93 3.77 - 5.28 10*6/mm3 01/02/2019 10:01 PM EDT [facility] Hemoglobin 11.2(L) 12.0 - 15.9 g/dL 01/02/2019 10:01 PM EDT [facility] Hematocrit 34.6 34.0 - 46.6 % 01/02/2019 10:01 PM EDT [facility] MCV 88.0 79.0 - 97.0 fL 01/02/2019 10:01 PM EDT [facility] MCH 28.5 26.6 - 33.0 pg 01/02/2019 10:01 PM EDT [facility] MCHC 32.4 31.5 - 35.7 g/dL 01/02/2019 10:01 PM EDT [facility] RDW 13.0 12.3 - 15.4 % [facility] RDW-SD 42.2 37.0 - 54.0 fl 01/02/2019 10:01 PM EDT [facility] MPV 12.7(H) 6.0 - 12.0 fL 01/02/2019 10:01 PM [facility] Platelets 256 140 - 450 10*3/mm3 01/02/2019 10:01 PM [facility] Neutrophil % 53.5 42.7 - 76.0 % 01/02/2019 10:01 PM [facility] Lymphocyte % 36.2 19.6 - 45.3 % 01/02/2019 10:01 PM [facility] Monocyte % 5.5 5.0 - 12.0 % 01/02/2019 10:01 PM [facility] Eosinophil % 4.2 0.3 - 6.2 % 01/02/2019 10:01 PM [facility] Basophil % 0.3 0.0 - 1.5 % 01/02/2019 10:01 PM [facility] Immature Grans % 0.3 0.0 - 0.5 % 01/02/2019 10:01 PM [facility] Neutrophils, Absolute 5.51 1.70 - 7.00 10*3/mm3 01/02/2019 10:01 PM [facility] Lymphocytes, Absolute 3.72(H) 0.70 - 3.10 10*3/mm3 01/02/2019 10:01 PM [facility] Monocytes, Absolute 0.57 0.10 - 0.90 10*3/mm3 01/02/2019 10:01 PM [facility] Eosinophils, Absolute 0.43(H) 0.00 - 0.40 10*3/mm3 01/02/2019 10:01 PM [facility] Basophils, Absolute 0.03 0.00 - 0.20 10*3/mm3 01/02/2019 10:01 PM [facility] Immature Grans, Absolute 0.03 0.00 - 0.05 10*3/mm3 01/02/2019 10:01 PM [facility] nRBC 0.0 0.0 - 0.2 /100 WBC 01/02/2019 10:01 PM [facility] Blood Venipuncture / Unknown 01/02/2019 9:50 PM EDT 01/02/2019 9:58 PM EDT Mickey Cerda MD LAB BLOOD ORDERABLES Final Result [facility]
[address] [place] [address], * (ABNORMAL) Comprehensive Metabolic Panel (01/02/2019 9:50 PM EDT) Glucose 216(H) 74 - 98 mg/dL 01/02/2019 10:20 PM EDT [facility] Comment:Glucose >180, Hemogl obin A1C recommended. BUN 44(H) 7 - 20 mg/dL 01/02/2019 10:20 PM EDT [facility] Creatinine 3.60(H) 0.60 - 1.30 mg/dL 01/02/2019 10:20 PM EDT [facility] Sodium 137 137 - 145 mmol/L 01/02/2019 10:20 PM EDT [facility] Potassium 4.2 3.5 - 5.1 mmol/L 01/02/2019 10:20 PM EDT [facility] Chloride 101 98 - 107 mmol/L 01/02/2019 10:20 PM EDT [facility] CO2 24.0(L) 26.0 - 30.0 mmol/L 01/02/2019 10:20 PM EDT [facility] Calcium 8.9 8.4 - 10.2 mg/dL 01/02/2019 10:20 PM EDT [facility] Total Protein 7.5 6.3 - 8.2 g/dL 01/02/2019 10:20 PM EDT [facility] Albumin 4.30 3.50 - 5.00 g/dL 01/02/2019 10:20 PM EDT [facility] ALT (SGPT) 24 13 - 69 U/L 01/02/2019 10:20 PM EDT [facility] AST (SGOT) 15 15 - 46 U/L 01/02/2019 10:20 PM EDT [facility] Alkaline Phosphatase 71 38 - 126 U/L 01/02/2019 10:20 PM EDT [facility] Total Bilirubin 0.2 0.2 - 1.3 mg/dL 01/02/2019 10:20 PM EDT [facility] eGFR Non Amer 15(L) >60 mL/min/1.7 3 01/02/2019 10:20 PM EDT [facility] Globulin 3.2 gm/dL 01/02/2019 10:20 PM EDT [facility] A/G Ratio 1.3 1.0 - 2.0 g/dL 01/02/2019 10:20 PM EDT [facility] BUN/Creatinine Ratio 12.2 7.1 - 23.5 01/02/2019 10:20 PM EDT [facility] Anion Gap 16.2 10.0 - 20.0 mmol/L 01/02/2019 10:20 PM EDT [facility] Blood Venipuncture / Unknown 01/02/2019 9:50 PM EDT 01/02/2019 9:58 PM EDT Narrative [facility] - 01/02/2019 10:20 PM EDT GFR Normal >60 Chronic Kidney Disease <60 Kidney Failure <15 Mickey Cerda MD LAB BLOOD ORDERABLES Final Result [facility]
[address] [id number], documented in this encounter Visit Diagnoses Diagnosis Headache, unspecified headache type- Primary Chills Chills (without fever) documented in this encounter Administered Medications Inactive Administered Medications - up to 3 most recent administrations Medication Order MAR Action Action Date Dose Rate Site acetaminophen (TYLENOL) tablet 650 mg 650 mg, Oral, Once, On Tue01/02/19 at 2143, For 1 dose Given 01/02/2019 9:53 PM EDT 650 mg qyzwcwcgdj-ugvkkyzvkqcuj-syy feine (FIORICET, ESGIC) 50-325-40 MG per tablet 1 tablet 1 tablet, Oral, Once, On Tue01/02/19 at 2242, For 1 dose, Do not exceed 4g of acetaminophen in a 24 hour period. Maximum 6 doses per 24 hours. Given 01/02/2019 10:48 PM EDT 1 tablet ondansetron (ZOFRAN) injection 4 mg 4 mg, Intravenous, Once, On Tue01/02/19 at 2143, For 1 dose Given 01/02/2019 9:53 PM EDT 4 mg sodium chloride 0.9 % bolus 500 mL 500 mL, Intravenous, at 1,000 mL/hr, Administer over 0.5 Hours, Once, On Tue01/02/19 at 2143, For 1 dose New Bag 01/02/2019 9:53 PM EDT 500 mL 1000 mL/hr sodium chloride 0.9 % flush 10 mL 10 mL, Intravenous, As Needed, Line Care, Starting on Tue01/02/19 at 2140 documented in this encounter Active and Recently Administered Medications Times are shown in EDT. Scheduled Medication Order 12/31/2018 01/01/2019 01/02/2019 acetaminophen (TYLENOL) tablet 650 mg (COMPLETED) 650 mg, Oral, Once, On Tue01/02/19 at 2142, For 1 dose 2152 (Given - Provid er: Sarah Shaffer RN) ngbvdcglaa-dfaobbxlzweup-namwabvk (FIORICET, ESGIC) 50-325-40 MG per tablet 1 tablet (COMPLETED) 1 tablet, Oral, Once, On Tue01/02/19 at 2242, For 1 dose, Do not exceed 4g of acetaminophen in a 24 hour period. Maximum 6 doses per 24 hours. 2247 (Given - Provid er: Sarah Shaffer RN) ondansetron (ZOFRAN) injection 4 mg (COMPLETED) 4 mg, Intravenous, Once, On Tue01/02/19 at 214, For 1 dose 2152 (Given - Provid er: Sarah Shaffer RN) sodium chloride 0.9 % bolus 500 mL (COMPLETED) 500 mL, Intravenous, at 1,000 mL/hr, Administer over 0.5 Hours, Once, On Tue01/02/19 at 2143, For 1 dose 2152 (New Bag - Prov ider: Sarah Shaffer RN)[id number] (Stopped - Provider: Sarah Shaffer RN) PRN Medication Order 12/31/2018 01/01/2019 01/02/2019 sodium chloride 0.9 % flush 10 mL(Linked Group 1) 10 mL, Intravenous, As Needed, Line Care, Starting on Tue01/02/19 at 2140 Linked Groups Order Group 1: Insert peripheral IV (CANCELED) Once, On Tue01/02/19 at 2141, For 1 occurrence And sodium chloride 0.9 % flush 10 mLJump to med 10 mL, Intravenous, As Needed, Line Care, Starting on Tue01/02/19 at 2140 documented in this encounter
--- OUTSIDE RECORDS SUMMARY | 2024-05-30 08:35 | XMS_ITS | Encounter Summary ---
[facility] Organization [facility] Address [address] [place] [address] Care Team Providers Care Oil Sprayer Name Role Phone Unavailable Primary Care Provider Unavailabl e Reason for Visit * Reason Comments Nasal Congestion Sore Throat Encounter Details Date Type Department Care Team (Late st Contact Info) Description 03/12/2019 8:03 PM EDT - 03/12/2019 10:15 PM EDT Emergency [facility] EMERGENCY DEPARTMENT [address] [place] [phone] Dominik Rizo MD [address] [place] [address] Upper respiratory tract infection, unspecified type (Primary Dx); Nasal congestion; Throat pain Discharge Disposition: Home or Self Care Social [...] Sign Reading Time Taken Comments Blood Pressure 102/68 03/12/2019 10:14 PM EDT Pulse 87 03/12/2019 10:14 PM EDT Temperature 36.7 ??C (98.1 ??F) 03/12/2019 7:27 PM ED T Respiratory Rate 18 03/12/2019 10:14 PM EDT Oxygen Saturation 97% 03/12/2019 10:14 PM EDT Inhaled Oxygen Concentration - - Weight 101 kg (222 lb 6.4 oz) 03/12/2019 7:27 PM EDT Height 165.1 cm (5' 5 ) 03/12/2019 7:27 PM EDT Body Mass Index 37.01 03/12/2019 7:27 PM EDT documented in this encounter Discharge Instructions * Discharge Instructions* Sierra Richardson PA-C - 03/12/2019 9:58 PM EDT Your symptoms are likely due to a viral illness. Continue your nasal spray as directed. Take yqhx-ilx-lfxbjwx Tylenol 500 mg every 6 hours for headache. Drink plenty of fluids to help stay hydrated and thin the mucus. Take mbzx-rfh-bdxomwo medication such as DayQuil or NyQuil as directed on the boxto help with nasal congestion. You will need to follow-up with your primary care provider the next few days to reevaluate your symptoms and ensure they are improving. Return to the ER for any change,worsening symptoms, or any additional concerns include not limited to severe worsening headache, vision loss or changes, inability to swallow her menstruation, difficulty breathing. * Attachments The following attachments cannot be sent through Care Everywhere. * Sore Throat (Kittitian) * Viral Respiratory Infection (Kittitian) documented in this encounter Medications at Time [...] 1 capsule by mouth Daily. 02/16/20 23 cyclobenzaprine (FLEXERIL) 5 MG tablet [...] as of this encounter ED Notes * Sierra Richardson PA-C - 03/12/2019 8:58 PM EDT Subjective Patient is a 28-year-old female with history of anxiety, arthritis, chronic constipation, diabetes,CKD, hyperlipidemia, and hypertension presenting to the ER for evaluation of nasal congestion and sore throat. Patient states that her symptoms have been ongoing since Tuesday03/10/19. He has had ayoung son at home with similar symptoms. She states she was seen by her primary care physician today and was told that she had allergies and was given Flonase. She states that she has continued to have left-sided facial pain and pressure, left ear pain that radiates down towards her neck. She states it hurts when she swallows but is still able to manage her secretions. She states she had chills but is unsure where she had a fever. She has not taken any medication for her symptoms prior to arrival. She denies any dizziness, syncope, vision loss or changes, neck pain or stiffness, otorrhea, cough, shortness of breath, chest pain, abdominal pain, nausea, emesis, diarrhea, difficulty urinating,change in bowel movement, or any other symptoms. Denies any dental pain or injury. Review of Systems Constitutional: Positive for chills. Negative for fever. HENT: Positive for congestion, ear pain, rhinorrhea and sore throat. Negative for ear discharge andtrouble swallowing. Eyes: Negative for pain and visual disturbance. Respiratory: Negative for cough and shortness of breath. Cardiovascular: Negative for chest pain. Gastrointestinal: Negative for abdominal pain, diarrhea, nausea and vomiting. Genitourinary: Negative. Musculoskeletal: Negative for neck pain and neck stiffness. Skin: Negative for rash. Neurological: Positive for headaches. Negative for dizziness and syncope. Psychiatric/Behavioral: Negative. Past 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: Diagnosis Date [...] SECTION 10/17/2012 ??? SECTION ??? INDUCED 2006 [facility] History reviewed. No pertinent family history. Social [...] Narrative Merged History Encounter Objective Physical Exam Nursing note and vitals reviewed. GEN: No acute distress, awake and alert. She sounds congested but is speaking in full sentences. Does not appear toxic. Head: Normocephalic, atraumatic Eyes: Pupils equal round reactive to light, EOM intact ENT: Posterior pharynx with mild erythema, no tonsillar exudate, uvula midline, soft palate elevates symmetrically with phonation. Oral mucosa is moist, tongue midline. Left TM is erythematous aroundthe pars flaccida, TM nonbulging. Right TM unremarkable. Chest: Nontender to palpation Cardiovascular: Regular rate and rhythm Lungs: Clear to auscultation bilaterally without adventitious sounds. Abdomen: Soft, nontender, nondistended, no peritoneal signs or guarding Extremities: No edema, normal appearance, full ROM Neuro: GCS 15 Psych: Mood and affect are appropriate Procedures ED Course ED Course as of Mar 13 114TueMar 12, [id number] Influenza A Ag, EIA: Negative [LA] 2145 Influenza B Ag, EIA: Negative [LA] 2146 Strep A Ag: Negative [LA] 215 Discussed all findings with patient. Discussed symptomatic care for that is likely viral illness, follow up and strict return precautions. [LA] ED Course User Index [LA] Sierra Richardson PA-C MDM Number of Diagnoses or Management Options Nasal congestion: Throat pain: Upper respiratory tract infection, unspecified type: Diagnosis management comments: On arrival, patient is hypertensive but afebrile, no acute distress.Differential includes viral illness, seasonal allergies, migraine, allergic rhinitis, otitis media,strep pharyngitis, and other concerns. There is lower concern for peritonsillar abscess, bronchitis, pneumonia, meningitis, subarachnoid hemorrhage. Will obtain rapid strep and influenza and give Tylenol for headache. Do not believe lab work or images are warranted at this time. Rapid strep and influenza are negative. Discussed with patient that her symptoms are likely due to nasal congestion andupper respiratory virus. Discussed symptomatic treatment. Discussed follow-up with her primary care physician and strict return precautions to the ER. She verbalized understanding was in agreement this plan of care. Amount and/or Complexity of Data Reviewed Clinical lab tests: reviewed and ordered Review and summarize past medical records: yes Risk of Complications, Morbidity, and/or Mortality Presenting problems: low Diagnostic procedures: low Management options: low Patient Progress Patient progress: stable Final diagnoses: Upper respiratory tract infection, unspecified type Nasal congestion Throat pain Sierra Richardson PA-C 03/13/19 0114 Cosigned by Dominik Rizo MD at 03/13/2019 8:03 AM EDT Associated attestation - Dominik Rizo MD - 03/13/2019 8:03 AM EDT For this patient encounter, I reviewed the DIRECTOR OF CORPORATE SPONSORSHIPS or PA documentation, treatment plan, and medical decision making. Dominik Rizo MD 03/13/2019 8:03 AM documented in this encounter Plan of Treatment Not on file documented as of this encounter Procedures Procedure Name Priority Date/Time Associated Diagnosis Comments RAPID STREP SCREEN STAT 03/12/2019 9: 11 PM EDT BETA HEMOLYTIC STREP CULTURE, THROAT STAT 03/12/2019 9:11 PM EDT INFLUENZA ANTIGEN, RAPID STAT 03/12/2019 9:10 PM EDT documented in this encounter Results * Beta Strep Culture, Throat - Swab, Throat (03/12/2019 9:11 PM EDT) Throat Culture, Beta Strep No Beta Hemolytic Streptococcus Isolated KIRA 03/14/2019 10:33 AM EDT [facility] Swab Specimen from throat / Unknown Collection / Unknown 03/12/2019 9:11 PM EDT 03/12/2019 9:14 PM EDT Narrative [facility] - 03/14/2019 10:33 AM EDT Group A Strep incidence is low in adults. Positive culture for Beta hemolytic Streptococcus species can reflect colonization and not true infection. Please correlate clinically. Sierra MENDEZ-C MICROBIOLOGY - GENERAL ORDE RABLES Final Result Performing Organization Address City/[facility]/ZIP Co de Phone Number [facility]
[address] [place] [address], * Rapid Strep A Screen - Swab, Throat (03/12/2019 9:11 PM EDT) Strep A Ag Negative Negative 03/12/2019 9:28 PM EDT [facility] Swab Specimen from throat / Unknown Collection / Unknown 03/12/2019 9:11 PM EDT 03/12/2019 9:14 PM EDT Sierra MENDEZ-C MICROBIOLOGY - GENERAL ORDE RABLES Final Result Performing Organization Address [facility]/ZIP Co de Phone Number [facility]
[address] [place] [address], [place] [phone] * Influenza Antigen, Rapid - Swab, Nasopharynx (03/12/2019 9:10 PM EDT) Influenza A Ag, EIA Negative Negative 03/12/2019 9:26 PM EDT [facility] Influenza B Ag, EIA Negative Negative 03/12/2019 9:26 PM EDT [facility] Swab Nasopharyngeal structure / Unknown Collection / Unknown 03/12/2019 9:10 PM EDT 03/12/2019 9:14 PM EDT Sierra MENDEZ-C MICROBIOLOGY - GENERAL ORDE RABLES Final Result Performing Organization Address City/[facility]/ZIP Co de Phone Number [facility]
[address] [place] [address], [place] [phone] documented in this encounter Visit Diagnoses Diagnosis Upper respiratory tract infection, unspecified type- Primary Nasal congestion Other diseases of nasal cavity and sinuses Throat pain documented in this encounter Administered Medications Inactive Administered Medications - up to 3 most recent administrations Medication Order MAR Action Action Date Dose Rate Site acetaminophen (TYLENOL) tablet 1,000 mg 1,000 mg, Oral, Once, On Tue03/12/19 at 2058, For 1 dose, Do not exceed 4 grams of acetaminophen in a 24 hr period. If given for pain, use the following pain scale: Mild Pain = Pain Score of 1-3, CPOT 1-2 Moderate Pain = Pain Score of 4-6, CPOT 3-4 Severe Pain = Pain Score of 7-10, CPOT 5-8 Given 03/12/2019 9:11 PM EDT 1,000 mg documented in this encounter Active and Recently Administered Medications Times are shown in EDT. Scheduled Medication Order 03/10/2019 03/11/2019 03/12/2019 acetaminophen (TYLENOL) tablet 1,000 mg (COMPLETED) 1,000 mg, Oral, Once, On Tue03/12/19 at 2058, For 1 dose, Do not exceed 4 grams of acetaminophen in a 24 hr period. If given for pain, use the following pain scale: Mild Pain = Pain Score of 1-3, CPOT 1-2 Moderate Pain = Pain Score of 4-6, CPOT 3-4 Severe Pain = Pain Score of 7-10, CPOT 5-8 2110 (Given - Provid er: Ela Hansen RN) documented in this encounter
--- OUTSIDE RECORDS SUMMARY | 2024-05-30 08:35 | XMS_ITS | Encounter Summary ---
Author Organization [facility] Address [address] [place] [address] Care Team Providers Care Patient Service Rep Name Role Phone Unavailable Primary Care Provider Unavailabl e Reason for Referral * (Emergency) - Closed Specialty Diagnoses / Procedures Referred By Contac t Referred To Contact Radiology Diagnoses Left leg pain Procedures XR Tibia Fibula 2 View Left Fabiola Guzman MD [address] [place] [phone] Phone: tel: fax: Referral ID Status Reason Start Date Expiration Date Visits Re quested Visits Authorized [id number] Closed 01/29/2019 01/29/2020 1 1 Reason for Visit * (Emergency) - Closed Specialty Diagnoses / Procedures Referred By Contac t Referred To Contact Radiology Diagnoses Pain of left hip joint Procedures XR Hip With or Without Pelvis 2 - 3 View Left XR Hip With or Without Pelvis 4 View Left Fabiola Guzman MD [address] [place] [phone] Phone: tel: fax: Referral ID Status Reason Start Date Expiration Date Visits Re quested Visits Authorized [id number] Closed 01/29/2019 01/29/2020 1 1 Encounter Details Date Type Department Care Team (Latest Contact Info) Description 01/29/2019 3:26 PM EDT - 01/29/2019 11:59 PM EDT Hospital Encounter [facility] XRAY [address] [place] [address] Left leg pain; Low back pain, unspecified back pain laterality, unspecified chronicity, with sciatica presence unspecified; Pain of left hip joint Discharge Disposition: Home or Self Care Social [...] 01/29/2019 3:59 PM EDT Left leg pain XR HIP W OR WO PELVIS 2-3 VIEW LEFT STAT 01/29/2019 3:59 PM EDT Pain of left hip joint documented in this encounter Results * XR [...] IMG DIAGNOSTIC IMAGING ORDER BERTIN Final Result * XR Hip With or Without Pelvis 2 - 3 View Left (01/29/2019 3:59 PM EDT) Anatomical Region Laterality Modality Lower Extremities, Hip Left Radiograp hic Imaging 01/29/2019 4:31 PM EDT Impressions 01/30/2019 [...] by Surendra Pike MD. Fabiola Guzman MD IM DIAGNOSTIC IMAGING ORDER BERTIN Final Result documented in this encounter Visit Diagnoses Diagnosis Left leg pain Pain in soft tissues of limb Low back pain, unspecified back pain laterality, unspecified chronicity, with sciatica presence unspecified Pain of left hip joint documented in this encounter
--- OUTSIDE RECORDS SUMMARY | 2024-05-30 08:35 | XMS_ITS | Encounter Summary ---
Author Organization [facility] Address [address] [place] [id number] Care Team Providers Care Trust Operations Assistant Name Role Phone Unavailable Primary Care Provider Unavailabl e Reason for Referral * Hospital - Outpatient (Emergency) - Closed Specialty Diagnoses / Procedures Referred By Contac t Referred To Contact Radiology Diagnoses Left leg pain Procedures US Venous Doppler Lower Extremity Left (duplex) Fabiola Guzman MD [address] [place] [phone] Phone: tel: fax: Referral ID Status Reason Start Date Expiration Date Visits Re quested Visits Authorized [id number] Closed 01/29/2019 01/29/2020 1 1 Reason for Visit * Hospital - Outpatient (Emergency) - Closed Specialty Diagnoses / Procedures Referred By Contac t Referred To Contact Radiology Diagnoses Left leg pain Procedures US Venous Doppler Lower Extremity Left (duplex) Fabiola Guzman MD [address] [place] [phone] Phone: tel: fax: Referral ID Status Reason Start Date Expiration Date Visits Re quested Visits Authorized [id number] Closed 01/29/2019 01/29/2020 1 1 Encounter Details Date Type Department Care Team (Latest Contact Info) Description 01/29/2019 3:26 PM EDT - 01/29/2019 11:59 PM EDT Hospital Encounter [address] [phone] Fabiola Gumzan MD [facility] Inside Social [place] [phone] Left leg pain Discharge Disposition: Home or Self Care [...] Procedure Name Priority Date/Time Associated Diagnosis Comments US VENOUS DOPPLER LOWER EXTREMITY LEFT (DUPLEX) STAT 01/29/2019 4:19 PM EDT Left leg pain documented in this encounter Results * US Venous Doppler Lower Extremity Left (duplex) (01/29/2019 4:19 PM EDT) Anatomical Region Laterality Modality Vascular, Lower Extremities Left Ultr asound 01/29/2019 4:51 PM EDT Impressions 01/29/2019 4:51 PM EDT No evidence of left lower extremity DVT. Authenticated by Andrzej Ivey MD on 01/29/2019 04:51:04 PM Narrative 01/29/2019 4:51 PM EDT FINAL REPORT TECHNIQUE: Ultrasound images of the deep venous system were obtained from the left groin to the calf veins. CLINICAL HISTORY: swelling FINDINGS: The deep venous system is normally compressible. ??Normal flow is identified. Procedure Note Andrzej Ivey MD - 01/29/2019 FINAL REPORT TECHNIQUE: Ultrasound images of the deep venous system were obtained from the left groin to the calf veins. CLINICAL HISTORY: swelling FINDINGS: The deep venous system is normally compressible. Normal flow is identified. IMPRESSION: No evidence of left lower extremity DVT. Authenticated by Andrzej Ivey MD on 01/29/2019 04:51:04 PM us Fabiola Guzman MD IMG US ORDERABLES Final Resu lt documented in this encounter Visit Diagnoses Diagnosis Left leg pain Pain in soft tissues of limb documented in this encounter
--- OUTSIDE RECORDS SUMMARY | 2024-05-30 08:35 | XMS_ITS | Encounter Summary ---
[facility] Address [address] [place] [address] Care Team Providers Care Armor Reconnaissance Vehicle Crewman Name Role Phone Unavailable Primary Care Provider Unavailabl e Reason for Visit * Reason Comments Wound Check Encounter Details Date Type Department Care Team (Late st Contact Info) Description 05/01/2019 9:56 PM EDT - 05/01/2019 10:58 PM EDT Emergency [facility] EMERGENCY DEPARTMENT [address] [place] [phone] Phill Gama, DO [address] [place] [address] Visit for wound check (Primary Dx) Discharge Disposition: Home or Self [...] Sign Reading Time Taken Comments Blood Pressure 161/88 05/01/2019 10:35 PM EDT Pulse 92 05/01/2019 10:35 PM EDT Temperature 36.7 ??C (98.1 ??F) 05/01/2019 9:41 PM ED T Respiratory Rate 18 05/01/2019 10:35 PM EDT Oxygen Saturation 95% 05/01/2019 10:35 PM EDT Inhaled Oxygen Concentration - - Weight 105 kg (231 lb 9.6 oz) 05/01/2019 9:41 PM EDT Height 165.1 cm (5' 5 ) 05/01/2019 9:41 PM EDT Body Mass Index 38.54 05/01/2019 9:41 PM EDT documented in this encounter Discharge Instructions * Discharge Instructions* Sierra Richardson PA-C - 05/01/2019 10:32 PM EDT Wound does not appear acutely infected. May use topical steroids and dysa-pqi-fyqncnr antibiotic ointment on the area for the next few days. Keep clean with soap and water. If redness worsens, spreads, you have fever greater than 100.4 or chills, may take Keflex as directed to treat. Follow-up withyour primary care provider in the next few days. Return to the ER for any change, worsening symptoms, or any additional concerns. * Attachments The following attachments cannot be sent through Care Everywhere. * Wound Care Adult ([place]izean) documented in this encounter Medications at Time [...] Times a Day. 240 tablet 1 06/14/2018 fluconazole (DIFLUCAN) 150 MG tablet Take 1 tablet by mouth 1 (One) Time for 1 dose. 1 tablet 05/01/2019 05/01/20 19 amLODIPine-benazepr il (LOTREL 5-10) 5-10 MG per capsule Take 1 capsule by mouth Daily. 02/16/20 23 cephalexin (KEFLEX) 500 MG capsule Take 1 capsule by mouth 3 (Three) Times a Day for 7 days. 21 capsule 05/01/2019 05/03/20 19 cyclobenzaprine (FLEXERIL) 5 MG tablet Take [...] a Day. 28 g 05/01/2019 02/16/20 23 naproxen (NAPROSYN) 500 MG tablet [...] ED Notes * Sierra Richardson PA-C - 05/01/2019 10:23 PM EDT Subjective Patient is a 28-year-old female with a history of chronic constipation, anxiety, depression, diabetes, hyperlipidemia, and hypertension presenting to the ER for wound check. Patient states approximate 1 week ago she had irritation on her abdomen from tape around her insulin pump. She states she wasseen by her primary care and they placed her on Silvadene cream. I told her if it got worse to come to the ER. She states she feels as if there is still redness with some tenderness around the site. Denies any purulent drainage from the wound. Patient thinks that she had a fever earlier today but did not check at home. She denies any abdominal pain, emesis, diarrhea, dysuria hematuria, or any other symptoms. Review of Systems Constitutional: Positive for chills. Negative for fever. HENT: Negative. Eyes: Negative. Respiratory: Negative. Cardiovascular: Negative. Gastrointestinal: Negative. Genitourinary: Negative. Skin: Positive for color change and wound. Allergic/Immunologic: Negative for immunocompromised state. Neurological: Negative. Hematological: Does not bruise/bleed easily. Psychiatric/Behavioral: Negative. Past 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: Diagnosis Date [...] 10/17/2012 ??? SECTION ??? INDUCED 2006 [facility] History reviewed. No pertinent family history. Social [...] and vitals reviewed. GEN: No acute distress, sitting upright in stretcher. Awake alert. Skin: There is mildly erythematous scabbed lesion over left upper abdomen, no tenderness or induration, no streaking, no purulent drainage. Head: Normocephalic, atraumatic Eyes: EOM intact Cardiovascular: Regular rate and rhythm Lungs: Clear to auscultation bilaterally Abdomen: Wound as noted above. Insulin pumps noted. Nondistended. Soft, No guarding or tenderness. Extremities: No edema, normal appearance, full ROM Neuro: GCS 15 Psych: Mood and affect are appropriate Procedures ED Course ED Course as of May 02 9 Tue May 01, [id number] Gama. Will give topical steroids, discussed wound care. Will write for an antibiotic in case redness worsens. [LA] ED Course User Index [LA] Sierra Richardson PA-C MDM Number of Diagnoses or Management Options Visit for wound check: Diagnosis management comments: On arrival, patient is mildly tachycardic but afebrile, no acute distress. Differential includes cellulitis, abscess, and other concerns. I do not believe the wound appears to be cellulitic, there is no obvious drainage. I discussed the case with Dr. Gama. We will give her a topical steroid to help and instructed topical antibiotic cream. We discussed wound care.I will give patient a prescription for Keflex and fluconazole in case the redness begins to spread or she has fever greater than 100.4. Discussed follow-up with the primary care provider to reevaluate symptoms and recheck the wound. Discussed strict return precautions to the ER. She verbalized under standing and was in agreement with this plan of care. Amount and/or Complexity of Data Reviewed Review and summarize past medical records: yes Discuss the patient with other providers: yes Risk of Complications, Morbidity, and/or Mortality Presenting problems: low Diagnostic procedures: low Management options: low Patient Progress Patient progress: stable Final diagnoses: Visit for wound check Sierra Richardson PA-C 05/02/198 Cosigned by Phill Gama DO at 05/02/2019 12:31 AM EDT Associated attestation - Phill Gama DO - 05/02/2019 12:31 AM EDT For this patient encounter, I reviewed the LEGISLATORS or PA documentation, treatment plan, and medical decision making. Phill Gama DO 05/02/2019 12:31 AM documented in this encounter Plan of Treatment Not on file documented as of this encounter Visit Diagnoses Diagnosis Visit for wound check- Primary documented in this encounter
--- OUTSIDE RECORDS SUMMARY | 2024-05-30 08:35 | XMS_ITS | Encounter Summary ---
Author Organization [facility] Address [address] [place] [address] Care Team Providers Care New Vehicle Sales Consultant Name Role Phone Unavailable Primary Care Provider Unavailabl e Encounter Details Date Type Department Care Team (Late st Contact Info) Description 01/03/2019 11:45 AM EDT Lab [facility] [address] [place] [address] Diabetes mellitus without complication Social History Tobacco Use Types Packs/Day Years [...] Name Priority Date/Time Associated Diagnosis Comments TSH Routine 01/03/2019 11:57 AM EDT Diabetes mellitus without complication LIPID PANEL Routine 01/03/2019 11:57 AM EDT Diabetes mellitus without complication COMPREHENSIVE METABOLIC PANEL Routine 01/03/2019 11:57 AM EDT Diabetes mellitus without complication documented in this encounter Results * TSH (01/03/2019 11:57 AM EDT) TSH 2.930 0.470 - 4.680 mIU/mL 01/03/2019 2:07 PM EDT [facility] Blood Venipuncture / Unknown 01/03/2019 11:57 AM EDT 01/03/2019 12:53 PM EDT Julisa Magdalena Andrew GOULDN LAB BLOOD ORDERABLES Fin al Result Performing Organization Address [facility] Co de Phone Number [facility]
[address] [place] [address], * (ABNORMAL) Lipid Panel (01/03/2019 11:57 AM EDT) Total Cholesterol 151 0 - 199 mg/dL 01/03/2019 1:20 PM EDT [facility] Triglycerides 346(H) <150 mg/dL 01/03/2019 1:20 PM EDT [facility] HDL Cholesterol 31(L) 40 - 60 mg/dL 01/03/2019 1:20 PM EDT [facility] LDL Cholesterol 51 0 - 99 mg/dL 01/03/2019 1:20 PM EDT [facility] VLDL Cholesterol 69.2 mg/dL 01/04/20 1:20 PM EDT [facility] LDL/HDL Ratio 1.64 01/03/2019 1:20 PM EDT [facility] Blood Venipuncture / Unknown 01/03/2019 11:57 AM EDT 01/03/2019 12:53 PM EDT Narrative [facility] - 01/03/2019 1:20 PM EDT Reference ranges for triglycerides, VLDL cholesterol, LDL cholesterol, and HDL cholesterol are not true population normal ranges but are threshold levels for increased risk of coronary artery disease established by ATP III guidelines from the National Cholesterol Education Program. Julisa Magdalena Morales SENIOR CLERK LAB BLOOD ORDERABLES Fin al Result Performing Organization Address [facility]/ZIP Co de Phone Number [facility]
[address] [place] [address], * (ABNORMAL) Comprehensive Metabolic Panel (01/03/2019 11:57 AM EDT) Glucose 258(H) 74 - 98 mg/dL 01/03/2019 1:20 PM EDT [facility] Comment:Glucose >180, Hemogl obin A1C recommended. BUN 46(H) 7 - 20 mg/dL 01/03/2019 1:20 PM EDT [facility] Creatinine 3.50(H) 0.60 - 1.30 mg/dL 01/03/2019 1:20 PM EDT [facility] Sodium 138 137 - 145 mmol/L 01/03/2019 1:20 PM EDT [facility] Potassium 5.0 3.5 - 5.1 mmol/L 01/03/2019 1:20 PM EDT [facility] Chloride 104 98 - 107 mmol/L 01/03/2019 1:20 PM EDT [facility] CO2 22.0(L) 26.0 - 30.0 mmol/L 01/03/2019 1:20 PM EDT [facility] Calcium 8.9 8.4 - 10.2 mg/dL 01/03/2019 1:20 PM EDT [facility] Total Protein 6.8 6.3 - 8.2 g/dL 01/03/2019 1:20 PM T [facility] Albumin 4.10 3.50 - 5.00 g/dL 01/03/2019 1:20 PM EDT [facility] ALT (SGPT) 28 13 - 69 U/L 01/03/2019 1:20 PM EDT [facility] AST (SGOT) 14(L) 15 - 46 U/L 01/03/2019 1:20 PM EDT [facility] Alkaline Phosphatase 67 38 - 126 U/L 01/03/2019 1:20 PM EDT [facility] Total Bilirubin 0.2 0.2 - 1.3 mg/dL 01/03/2019 1:20 PM EDT [facility] eGFR Non Amer 15(L) >60 mL/min/1.7 3 01/03/2019 1:20 PM EDT [facility] Globulin 2.7 gm/dL 01/03/2019 1:20 PM EDT [facility] A/G Ratio 1.5 1.0 - 2.0 g/dL 01/03/2019 1:20 PM EDT [facility] BUN/Creatinine Ratio 13.1 7.1 - 23.5 01/03/2019 1:20 PM EDT [facility] Anion Gap 17.0 10.0 - 20.0 mmol/L 01/03/2019 1:20 PM EDT [facility] Blood Venipuncture / Unknown 01/03/2019 11:57 AM EDT 01/03/2019 12:53 PM EDT Narrative [facility] - 01/03/2019 1:20 PM EDT GFR Normal >60 Chronic Kidney Disease <60 Kidney Failure <15 Julisa Morales SENIOR CLERK LAB BLOOD ORDERABLES Fin al Result [facility]
[address] [place] [address], [place] [phone] documented in this encounter Visit Diagnoses Diagnosis Diabetes mellitus without complication Type II or unspecified type diabetes mellitus without mention of complication, not stated as uncontrolled documented in this encounter
--- OUTSIDE RECORDS SUMMARY | 2024-05-30 08:35 | XMS_ITS | Encounter Summary ---
Author Organization [facility] Address [address] [place] [address] Care Team Providers Care Linen Room Supervisor Name Role Phone Unavailable Primary Care Provider Unavailabl e Reason for Referral * (Emergency) - Closed Specialty Diagnoses / Procedures Referred By Contac t Referred To Contact Radiology Diagnoses Low back pain, unspecified back pain laterality, unspecified chronicity, with sciatica presence unspecified Procedures XR Spine Lumbar 4+ View XR Spine Lumbar 2 or 3 View Fabiola Guzman MD [address] [place] [address] [place] [address] Phone: tel: fax: Referral ID Status Reason Start Date Expiration Date Visits Re quested Visits Authorized [id number] Closed 01/29/2019 01/29/2020 1 1 Reason for Visit * (Emergency) - Closed Specialty Diagnoses / Procedures Referred By Contac t Referred To Contact Radiology Diagnoses Low back pain, unspecified back pain laterality, unspecified chronicity, with sciatica presence unspecified Procedures XR Spine Lumbar 4+ View XR Spine Lumbar 2 or 3 View Fabiola Guzman MD [address] [place] [address] [place] [address] Phone: tel: fax: Referral ID Status Reason Start Date Expiration Date Visits Re quested Visits Authorized [id number] Closed 01/29/2019 01/29/2020 1 1 Encounter Details Date Type Department Care Team (Latest Contact Info) Description 01/29/2019 3:33 PM EDT - 01/29/2019 11:59 PM EDT Hospital Encounter [facility] [address] [place] [address] Low back pain, unspecified back pain laterality, unspecified chronicity, with sciatica presence unspecified Discharge Disposition: Home or Self Care Social [...] Name Priority Date/Time Associated Diagnosis Comments XR SPINE LUMBAR COMPLETE 4+VW STAT 01/29/2019 3:58 PM EDT Low back pain, unspecified back pain laterality, unspecified chronicity, with sciatica presence unspecified documented in this encounter Results * XR Spine Lumbar 4+ View (01/29/2019 3:58 PM EDT) Anatomical Region Laterality Modality Spine, L-spine N/A Radiographic Kim ging 01/29/2019 4:31 PM EDT Impressions 01/30/2019 7:38 [...] documented in this encounter Visit Diagnoses Diagnosis Low back pain, unspecified back pain laterality, unspecified chronicity, with sciatica presence unspecified documented in this encounter
--- OUTSIDE RECORDS SUMMARY | 2024-05-30 08:35 | XMS_ITS | Encounter Summary ---
Author Organization [facility] Address [address] [place] [address] Care Team Providers Care Bartender Name Role Phone Unavailable Primary Care Provider Unavailabl e Encounter Details Date Type Department Care Team (Late st Contact Info) Description 03/05/2019 4:20 PM EDT Lab [facility] [address] [place] [address] Secondary hyperparathyroidism; Chronic kidney disease, stage IV (severe); Urinary tract infection without hematuria, site unspecified [...] Associated Diagnosis Comments URINALYSIS, MICROSCOPIC ONLY Routine 03/05/2019 4:49 PM EDT Chronic kidney disease, stage IV (severe) VITAMIN D,25-HYDROXY Routine 03/05/2019 4:49 PM EDT Secondary hyperparathyroidism URINALYSIS AND MICROSCOPIC Routine 03/05/2019 4:49 PM EDT Chronic kidney disease, stage IV (severe) URINALYSIS WITHOUT MICROSCOPIC (NO CULTURE) Routine 03/05/2019 4:49 PM EDT Chronic kidney disease, stage IV (severe) URINE CULTURE Routine 03/05/2019 4:49 PM EDT Urinary tract infection without hematuria, site unspecified PTH, INTACT Routine 03/05/2019 4:49 PM EDT Secondary hyperparathyroidism RENAL FUNCTION PANEL Routine 03/05/2019 4:49 PM EDT Chronic kidney disease, stage IV (severe) documented in this encounter Results * (ABNORMAL) Urinalysis, Microscopic Only - Urine, Clean Catch (03/05/2019 4:49 PM EDT) RBC, UA 3-5(A) None Seen, 0-2 /HPF 03/05/2019 11:07 PM EDT [facility] WBC, UA 0-2 None Seen, 0-2 /HPF 03/05/2019 11:07 PM EDT [facility] Bacteria, UA 1+(A) None Seen /HPF 03/05/2019 11:07 PM EDT [facility] Squamous Epithelial Cells, UA 0-2 None Seen, 0-2 /HPF 03/05/2019 11:07 PM EDT [facility] Hyaline Casts, UA 0-2 None Seen /LPF 03/05/2019 11:07 PM EDT [facility] Methodology Automated Microscopy 03/05/2019 11:07 PM EDT [facility] Urine Urine specimen collection, clean catch / Unknown Collection / Unknown 03/05/2019 4:49 PM EDT 03/05/2019 6:39 PM EDT us Maria A Soria HALF BACKER URINE ORDERABLES Final Resu lt [facility]
[address] [place] [address], * (ABNORMAL) Urinalysis without microscopic (no culture) - Urine, Clean Catch (03/05/2019 4:49 PM EDT) Color, UA Yellow Yellow, Straw 03/05/2019 10:57 PM EDT [facility] Appearance, UA Clear Clear 03/05/2019 10:57 PM EDT [facility] pH, UA 7.5 5.0 - 8.0 03/05/2019 10:57 PM EDT [facility] Specific [place], UA 1.011 1.005 - 1.030 03/05/2019 10:57 PM EDT [facility] Glucose, UA 100 mg/dL (Trace)(A) Negative 03/05/2019 10:57 PM EDT [facility] Ketones, UA Negative Negative 03/05/2019 10:57 PM EDT [facility] Bilirubin, UA Negative Negative 03/05/2019 10:57 PM EDT [facility] Blood, UA Negative Negative 03/05/2019 10:57 PM EDT [facility] Protein, UA >=300 mg/dL (3+)(A) Negative 03/05/2019 10:57 PM EDT [facility] Leuk Esterase, UA Negative Negative 03/05/2019 10:57 PM EDT [facility] Nitrite, UA Negative Negative 03/05/2019 10:57 PM EDT [facility] Urobilinogen, UA 0.2 E.U./dL 0.2 - 1.0 E.U./dL 03/05/2019 10:57 PM EDT [facility] Urine Urine specimen collection, clean catch / Unknown Collection / Unknown 03/05/2019 4:49 PM EDT 03/05/2019 6:39 PM EDT us Maria A Soria HALF BACKER URINE ORDERABLES Final Resu lt [facility]
[address] [place] [address], * Urine Culture - Urine, Urine, Clean Catch (03/05/2019 4:49 PM EDT) Urine Culture No growth KIRA 03/06/2019 7:02 PM EDT [facility] Urine Urine specimen collection, clean catch / Unknown Collection / Unknown 03/05/2019 4:49 PM EDT 03/05/2019 6:39 PM EDT Maria A Soria APRN MICROBIOLOGY - GENERAL ORDE RABLES Final Result Performing Organization Address City/[facility]/ZIP Co de Phone Number [facility]
[address] [place] [address], * (ABNORMAL) Vitamin D 25 Hydroxy (03/05/2019 4:49 PM EDT) 25 Hydroxy, Vitamin D 11.5(L) 30.0 - 100.0 ng/ml 03/05/2019 10:48 PM EDT [facility] Blood Venipuncture / Unknown 03/05/2019 4:49 PM EDT 03/05/2019 6:40 PM EDT Narrative [facility] - 03/05/2019 10:48 PM EDT Reference Range for Total Vitamin D 25(OH) Deficiency <20.0 ng/mL Insufficiency 21-29 ng/mL Sufficiency 30-100 ng/mL Toxicity >100 ng/ml Maria A Soria APRN LAB BLOOD ORDERABLES Final Result Performing Organization Address City/[facility]/ZIP Co de Phone Number [facility]
[address] [place] [address], * (ABNORMAL) Renal Function Panel (03/05/2019 4:49 PM EDT) Glucose 191(H) 65 - 99 mg/dL 03/05/2019 10:31 PM EDT [facility] BUN 35(H) 6 - 20 mg/dL 03/05/2019 10:31 PM EDT [facility] Creatinine 3.73(H) 0.57 - 1.00 mg/dL 03/05/2019 10:31 PM [facility] Sodium 138 136 - 145 mmol/L 03/05/2019 10:31 PM T [facility] Potassium 4.6 3.5 - 5.2 mmol/L 03/05/2019 10:31 PM [facility] Chloride 98 98 - 107 mmol/L 03/05/2019 10:31 PM [facility] CO2 24.2 22.0 - 29.0 mmol/L 03/05/2019 10:31 PM [facility] Calcium 8.9 8.6 - 10.5 mg/dL 03/05/2019 10:31 PM [facility] Albumin 4.10 3.50 - 5.20 g/dL 03/05/2019 10:31 PM [facility] Phosphorus 4.4 2.5 - 4.5 mg/dL 03/05/2019 10:31 PM [facility] Anion Gap 15.8(H) 5.0 - 15.0 mmol/L 03/05/2019 10:31 PM [facility] BUN/Creatinine Ratio 9.4 7.0 - 25.0 03/05/2019 10:31 PM T [facility] eGFR Non Amer 14(L) >60 mL/min/1.7 3 03/05/2019 10:31 PM [facility] Comment:<15 Indicative of ki dney failure. eGFR Amer >60 mL/min/1.7 3 03/05/2019 10:31 PM [facility] Comment:<15 Indicative of ki dney failure. Blood Venipuncture / Unknown 03/05/2019 4:49 PM EDT 03/05/2019 6:40 PM EDT [facility] - 03/05/2019 10:31 PM EDT GFR Normal >60 Chronic Kidney Disease <60 Kidney Failure <15 Maria A Soria APRN LAB BLOOD ORDERABLES Final Result Performing Organization Address [facility]/ZIP Co de Phone Number [facility]
[address] [place] [address], * (ABNORMAL) PTH, Intact (03/05/2019 4:49 PM EDT) PTH, Intact 257.0(H) 15.0 - 65.0 pg/mL 03/05/2019 10:54 PM EDT [facility] Blood Venipuncture / Unknown 03/05/2019 4:49 PM EDT 03/05/2019 6:40 PM EDT Maria A Soria APRN LAB BLOOD ORDERABLES Final Result Performing Organization Address [facility] Co de Phone Number [facility]
[address] [place] [address], documented in this encounter Visit Diagnoses Diagnosis Secondary hyperparathyroidism Secondary hyperparathyroidism (of renal origin) Chronic kidney disease, stage IV (severe) Chronic kidney disease, Stage IV (severe) Urinary tract infection without hematuria, site unspecified documented in this encounter
--- OUTSIDE RECORDS SUMMARY | 2024-05-30 08:35 | XMS_ITS | Encounter Summary ---
[facility] Address [address] [place] [address] Care Team Providers Care Welder Plastic Name Role Phone Unavailable Primary Care Provider Unavailabl e Reason for Visit * Reason Comments Chest Pain Encounter Details Date Type Department Care Team (Late st Contact Info) Description 04/12/2019 8:24 PM EDT - 04/12/2019 8:56 PM EDT Emergency [facility] [address] [place] [phone] Emergency, Triage Protocol, [place] [address] Discharge Disposition: Left Without Being Seen Social History Tobacco Use Types Packs/Day Years [...] Sign Reading Time Taken Comments Blood Pressure 172/94 04/12/2019 8:25 PM EDT Pulse 92 04/12/2019 8:25 PM EDT Temperature 36.7 ??C (98 ??F) 04/12/2019 8:25 PM EDT Respiratory Rate 18 04/12/2019 8:25 PM EDT Oxygen Saturation 100% 04/12/2019 8:25 PM EDT Inhaled Oxygen Concentration - - Weight 99.8 kg (220 lb) 04/12/2019 8:25 PM EDT Height 165.1 cm (5' 5 ) 04/12/2019 8:25 PM EDT Body Mass Index 36.61 04/12/2019 8:25 PM EDT documented in this encounter Medications at Time [...] Diagnosis Comments GOLD TOP - SST STAT 04/12/2019 8:37 PM EDT DK GREEN TOP STAT 04/12/2019 8:37 PM EDT CBC WITH AUTO DIFFERENTIAL STAT 04/12/2019 8:37 PM EDT LAVENDER TOP STAT 04/12/2019 8:37 PM EDT LIGHT BLUE TOP STAT 04/12/2019 8:37 PM EDT RAINBOW DRAW STAT 04/12/2019 8:37 PM EDT TROPONIN STAT 04/12/2019 8:37 PM EDT CBC AND DIFFERENTIAL STAT 04/12/2019 8:37 PM EDT B-TYPE NATRIURETIC PEPTIDE STAT 04/12/2019 8:37 PM EDT LIPASE STAT 04/12/2019 8:37 PM EDT COMPREHENSIVE METABOLIC PANEL STAT 04/12/2019 8:37 PM EDT ECG 12-LEAD STAT 04/12/2019 8:35 PM EDT documented in this encounter Results * (ABNORMAL) CBC Auto Differential (04/12/2019 8:37 PM EDT) [facility] WBC 9.74 3.40 - 10.80 10*3/mm3 04/12/2019 8:56 PM EDT [facility] RBC 3.81 3.77 - 5.28 10*6/mm3 04/12/2019 8:56 PM EDT [facility] Hemoglobin 10.8(L) 12.0 - 15.9 g/dL 04/12/2019 8:56 PM EDT [facility] Hematocrit 34.7 34.0 - 46.6 % 04/12/2019 8:56 PM EDT [facility] MCV 91.1 79.0 - 97.0 fL 04/12/2019 8:56 PM EDT [facility] MCH 28.3 26.6 - 33.0 pg 04/12/2019 8:56 PM EDT [facility] MCHC 31.1(L) 31.5 - 35.7 g/dL 04/12/2019 8:56 PM EDT [facility] RDW 13.0 12.3 - 15.4 % 04/12/2019 8:56 PM EDT [facility] RDW-SD 42.8 37.0 - 54.0 fl 04/12/2019 8:56 PM EDT [facility] MPV 12.7(H) 6.0 - 12.0 fL 04/12/2019 8:56 PM EDT [facility] Platelets 252 140 - 450 10*3/mm3 04/12/2019 8:56 PM EDT [facility] Neutrophil % 61.6 42.7 - 76.0 % 04/12/2019 8:56 PM EDT [facility] Lymphocyte % 28.4 19.6 - 45.3 % 04/12/2019 8:56 PM EDT [facility] Monocyte % 5.6 5.0 - 12.0 % 04/12/2019 8:56 PM EDT [facility] Eosinophil % 3.7 0.3 - 6.2 % 04/12/2019 8:56 PM EDT [facility] Basophil % 0.4 0.0 - 1.5 % 04/12/2019 8:56 PM EDT [facility] Immature Grans % 0.3 0.0 - 0.5 % 04/12/2019 8:56 PM EDT [facility] Neutrophils, Absolute 5.99 1.70 - 7.00 10*3/mm3 04/12/2019 8:56 PM EDT [facility] Lymphocytes, Absolute 2.77 0.70 - 3.10 10*3/mm3 04/12/2019 8:56 PM EDT [facility] Monocytes, Absolute 0.55 0.10 - 0.90 10*3/mm3 04/12/2019 8:56 PM EDT [facility] Eosinophils, Absolute 0.36 0.00 - 0.40 10*3/mm3 04/12/2019 8:56 PM EDT [facility] Basophils, Absolute 0.04 0.00 - 0.20 10*3/mm3 04/12/2019 8:56 PM EDT [facility] Immature Grans, Absolute 0.03 0.00 - 0.05 10*3/mm3 04/12/2019 8:56 PM EDT [facility] nRBC 0.0 0.0 - 0.2 /100 WBC 04/12/2019 8:56 PM EDT [facility] Blood Venipuncture / Unknown 04/12/2019 8:37 PM EDT 04/12/2019 8:51 PM EDT us Triage Protocol Emergency MD LAB BLOOD ORDERABLE S Final Result [facility]
[address] [place] [address], * Gold Top - SST (04/12/2019 8:37 PM EDT) Extra Tube Hold for add-ons. 04/12/2019 10:21 PM EDT [facility] Comment:Auto resulted. Blood Venipuncture / Unknown 04/12/2019 8:37 PM EDT 04/12/2019 8:51 PM EDT us Triage Protocol Emergency MD LAB BLOOD ORDER ONL Y Final Result Performing Organization Address [facility]/ZIP Co de Phone Number [facility]
[address] [place] [address], * Lavender Top (04/12/2019 8:37 PM EDT) Extra Tube hold for add-on 04/12/2019 10:21 PM EDT [facility] Comment:Auto resulted Blood Venipuncture / Unknown 04/12/2019 8:37 PM EDT 04/12/2019 8:51 PM EDT us Triage Protocol Emergency MD LAB BLOOD ORDER ONL Y Final Result Performing Organization Address [facility] de Phone Number [facility]
[address] [place] [address], * Green Top (Gel) (04/12/2019 8:37 PM EDT) Extra Tube Hold for add-ons. 04/12/2019 10:21 PM EDT [facility] Comment:Auto resulted. Blood Venipuncture / Unknown 04/12/2019 8:37 PM EDT 04/12/2019 8:51 PM EDT us Triage Protocol Emergency MD LAB BLOOD ORDER ONL Y Final Result Performing Organization Address [facility] Co de Phone Number [facility]
[address] [place] [address], [place] [phone] * Light Blue Top (04/12/2019 8:37 PM EDT) Extra Tube hold for add-on 04/12/2019 10:21 PM EDT [facility] Comment:Auto resulted Blood Venipuncture / Unknown 04/12/2019 8:37 PM EDT 04/12/2019 8:51 PM EDT us Triage Protocol Emergency MD LAB BLOOD ORDER ONL Y Final Result Performing Organization Address [facility]/ZIP Co de Phone Number [facility]
[address] [place] [address], [place] [phone] * (ABNORMAL) BNP (04/12/2019 8:37 PM EDT) proBNP 892.6(H) 5.0 - 450.0 pg/mL 04/12/2019 9:13 PM EDT [facility] Blood Venipuncture / Unknown 04/12/2019 8:37 PM EDT 04/12/2019 8:51 PM EDT Narrative [facility] - 04/12/2019 9:13 PM EDT Among patients with dyspnea, NT-proBNP is highly sensitive for the detection of acute congestive heart failure. In addition NT-proBNP of <300 pg/ml effectively rules out acute congestive heart failure with 99% negative predictive value. us Kemi Hernandez MD LAB BLOOD ORDERABLES Final Res ult Performing Organization Address [facility] Co de Phone Number [facility]
[address] [place] [address], * Lipase (04/12/2019 8:37 PM EDT) Lipase 28 13 - 60 U/L 04/12/2019 9:20 PM EDT [facility] Blood Venipuncture / Unknown 04/12/2019 8:37 PM EDT 04/12/2019 8:51 PM EDT us Kemi Hernandez MD LAB BLOOD ORDERABLES Final Res ult Performing Organization Address [facility] Co de Phone Number [facility]
[address] [place] [address], [place] [phone] * (ABNORMAL) Comprehensive Metabolic Panel (04/12/2019 8:37 PM EDT) Glucose 195(H) 65 - 99 mg/dL 04/12/2019 9:20 PM EDT [facility] BUN 43(H) 6 - 20 mg/dL 04/12/2019 9:20 PM EDT [facility] Creatinine 4.04(H) 0.57 - 1.00 mg/dL 04/12/2019 9:20 PM EDT [facility] Sodium 140 136 - 145 mmol/L 04/12/2019 9:20 PM EDT [facility] Potassium 4.8 3.5 - 5.2 mmol/L 04/12/2019 9:20 PM EDT [facility] Chloride 103 98 - 107 mmol/L 04/12/2019 9:20 PM EDT [facility] CO2 22.0 22.0 - 29.0 mmol/L 04/12/2019 9:20 PM EDT [facility] Calcium 7.8(L) 8.6 - 10.5 mg/dL 04/12/2019 9:20 PM EDT [facility] Total Protein 7.2 6.0 - 8.5 g/dL 04/12/2019 9:20 PM EDT [facility] Albumin 3.90 3.50 - 5.20 g/dL 04/12/2019 9:20 PM EDT [facility] ALT (SGPT) 13 1 - 33 U/L 04/12/2019 9:20 PM EDT [facility] AST (SGOT) 10 1 - 32 U/L 04/12/2019 9:20 PM EDT [facility] Alkaline Phosphatase 63 39 - 117 U/L 04/12/2019 9:20 PM EDT [facility] Total Bilirubin <0.2(L) 0.2 - 1.2 mg/dL 04/12/2019 9:20 PM EDT [facility] eGFR Non Amer 13(L) >60 mL/min/1.7 3 04/12/2019 9:20 PM EDT [facility] Comment:<15 Indicative of ki dney failure. eGFR Amer 04/12/2019 9:20 PM EDT [facility] Comment:<15 Indicative of ki dney failure. Globulin 3.3 gm/dL 04/12/2019 9:20 PM EDT [facility] A/G Ratio 1.2 g/dL 04/12/2019 9:20 PM EDT [facility] BUN/Creatinine Ratio 10.6 7.0 - 25.0 04/12/2019 9:20 PM EDT [facility] Anion Gap 15.0 5.0 - 15.0 mmol/L 04/12/2019 9:20 PM EDT [facility] Blood Venipuncture / Unknown 04/12/2019 8:37 PM EDT 04/12/2019 8:51 PM EDT [facility] - 04/12/2019 9:20 PM EDT GFR Normal >60 Chronic Kidney Disease <60 Kidney Failure <15 us Kemi Hernandez MD LAB BLOOD ORDERABLES Final Res ult [facility]
[address] [place] [address], * Troponin (04/12/2019 8:37 PM EDT) Troponin T <0.010 0.000 - 0.030 ng/mL 04/12/2019 9:17 PM EDT [facility] Blood Venipuncture / Unknown 04/12/2019 8:37 PM EDT 04/12/2019 8:51 PM EDT [facility] - 04/12/2019 9:17 PM EDT Troponin T Reference Range: <= 0.03 ng/mL- ?? Negative for AMI >0.03 ng/mL- ? Abnormal for myocardial necrosis. ??Clinicians would have to utilize clinical acumen, EKG, Troponin and serial changes to determine if it is an Acute Myocardial Infarction or myocardial injury due to an underlying chronic condition. us Kemi Hernandez MD LAB BLOOD ORDERABLES Final Res ult Performing Organization Address [facility]/ZIP Co de Phone Number [facility]
[address] [place] [address], * ECG 12 Lead (04/12/2019 8:35 PM EDT) 04/12/2019 8:35 PM EDT 04/14/2019 11:11 AM EDT Narrative ECG - 04/14/2019 11:12 AM EDT Test Reason : CP Blood Pressure : / mmHG Vent. Rate : 091 BPM ? Atrial Rate : 091 BPM ?? P-R Int : 138 ms ?QRS Dur : 084 ms ?QT Int : 374 ms ? P-R-T Axes : 061 061 058 degrees ?? QTc Int : 460 ms Poor data quality, interpretation may be adversely affected Normal sinus rhythm Normal ECG When compared with ECG of 13-JUN-2018 16:29, No significant change was found Confirmed by MALAIKA ?KEMI RICHEY ([id number]) on 04/14/2019 11:11:59 AM Referred By: ER ? Confirmed By:KEMI HERNANDEZ ??MD Procedure Note Kemi Hernandez MD - 04/14/2019 Test Reason : CP Blood Pressure : / mmHG Vent. Rate : 091 BPM Atrial Rate : 091 BPM P-R Int : 138 ms QRS Dur : 084 ms QT Int : 374 ms P-R-T Axes : 061 061 058 degrees QTc Int : 460 ms Poor data quality, interpretation may be adversely affected Normal sinus rhythm Normal ECG When compared with ECG of 13-JUN-2018 16:29, No significant change was found Confirmed by KEMI HERNANDEZ MD ([id number]) on 04/14/2019 11:11:59 AM Referred By: ER Confirmed By:KEMI HERNANDEZ MD us Kemi Hernandez MD ECG ORDERABLES Final Result Performing Organization Address [facility]/ZIP Co de Phone Number [facility] ECG documented in this encounter Visit Diagnoses Not on filedocumented in this encounter Active and Recently Administered Medications
--- OUTSIDE RECORDS SUMMARY | 2024-05-30 08:35 | XMS_ITS | Encounter Summary ---
Author Organization [facility] Address [address] [place] [id number] Care Team Providers Care Dog Show Judge Name Role Phone Unavailable Primary Care Provider Unavailabl e Reason for Visit * Reason Onset Date Comments Other 03/06/2019 Ayah with Disab ility Determination Encounter Details Date Type Department Care Team (Late st Contact Info) Description 03/06/2019 Telephone [facility] [address] [facility] [address] [place] [address] Mare Johnston MD [address] [facility] [address] [place] [address] Other (Ayah with Disability Determination) Social History Tobacco Use Types Packs/Day Years [...] encounter Miscellaneous Notes * Telephone Encounter - Silvia Arthur MA - 03/06/2019 8:55 AM EDT LMOM 03/02/2019 @ 10:27 AM * Telephone Encounter - Silvia Arthur MA - 03/06/2019 8:54 AM EDT ----- Message from Josie Reaves sent at 03/01/2019 10:40 AM EDT ----- Regarding: SPEEDY - MEDICAL RECORD REQUEST Contact: AYAH WITH DISABILITY DETERMINATIONS IN [place] CALLED REGARDING MEDICAL RECORDS REQUEST CALL AYAH BACK REGARDING THIS documented in this encounter Plan of Treatment Not on file documented as of this encounter Visit Diagnoses Not on filedocumented in this encounter
--- OUTSIDE RECORDS SUMMARY | 2024-05-30 08:35 | XMS_ITS | Encounter Summary ---
[facility] Address [address] [place] [phone] Care Team Providers Care Implementation Services Analyst Name Role Phone Unavailable Primary Care Provider Unavailabl e Reason for Visit * Reason Comments Fall Encounter Details Date Type Department Care Team (Late st Contact Info) Description 01/27/2019 6:41 PM EDT - 01/27/2019 9:02 PM EDT Emergency [facility] [address] [place] [phone] Jaquan Arenas, Krissy Higginbotham MD Contusion of rib on right side, initial encounter (Primary Dx); Sprain of left knee, unspecified ligament, initial encounter Discharge Disposition: Home or Self [...] Sign Reading Time Taken Comments Blood Pressure 128/88 01/27/2019 8:34 PM EDT Pulse 94 01/27/2019 8:34 PM EDT Temperature 36.9 ??C (98.4 ??F) 01/27/2019 8:34 PM ED T Respiratory Rate 18 01/27/2019 8:34 PM EDT Oxygen Saturation 99% 01/27/2019 8:34 PM EDT Inhaled Oxygen Concentration - - Weight 99.8 kg (220 lb) 01/27/2019 6:39 PM EDT Height 165.1 cm (5' 5 ) 01/27/2019 6:39 PM EDT Body Mass Index 36.61 01/27/2019 6:39 PM EDT documented in this encounter Discharge Instructions * Attachments The following attachments cannot be sent through Care Everywhere. * Rib Contusion (Malawian) * Knee Sprain Adult (Malawian) documented in this encounter Medications at Time [...] as of this encounter ED Notes * Silvia Laird RN - 01/27/2019 8:39 PM EDT Bruising, swelling and tenderness noted to medial aspect of left knee; sharath wrap applied. Abrasion noted right lateral aspect of chest; area cleansed with 4% CHG and dressing applied. Silvia Laird RN 01/27/19 1350 * Maikol Quiroz Jr., JOHN - 01/27/2019 7:07 PM EDT Subjective 28-year-old female presents after a fall, she states that she fell on water while at [employer]. She hit the right side of her ribs on a wire in bucket when she fell. She is also complained of left knee pain that twisted underneath her. No head or neck injury no loss of consciousness, she arrived via EMS. History provided by: Patient contract processor used: No Review of Systems Musculoskeletal: Right rib and left knee pain. Skin: Right rib abrasions All other systems reviewed and are negative. [...] SECTION 10/17/2012 ??? SECTION ??? INDUCED 2006 [facility] History reviewed. No pertinent family history. [...] appears well- developed and well-nourished. HENT: Head: Atraumatic. Eyes: EOM are normal. Neck: Normal range of motion. Neck supple. Cardiovascular: Normal rate and regular rhythm. Pulmonary/Chest: Effort normal and breath sounds normal. Abdominal: Soft. Bowel sounds are normal. Musculoskeletal: Normal range of motion. She exhibits tenderness. Left knee ttp. Right rib ttp Neurological: She is alert and oriented to person, place, and time. She has normal reflexes. Skin: Skin is warm and dry. Abrasions right posterior rib Psychiatric: She has a normal mood and affect. Nursing note and vitals reviewed. Procedures ED Course MDM Number of Diagnoses or Management Options Contusion of rib on right side, initial encounter: new and requires workup Sprain of left knee, unspecified ligament, initial encounter: new and requires workup Amount and/or Complexity of Data Reviewed Tests in the radiology section of CPT??: reviewed Risk of Complications, Morbidity, and/or Mortality Presenting problems: low Diagnostic procedures: low Management options: low Patient Progress Patient progress: stable Final diagnoses: Contusion of rib on right side, initial encounter Sprain of left knee, unspecified ligament, initial encounter Maikol Quiroz Jr., PA-C 01/27/192023 Cosigned by Krissy Bowman MD at 01/27/2019 8:44 PM EDT Associated attestation - Krissy Bowman MD - 01/27/2019 8:44 PM EDT For this patient encounter, I reviewed the STOVE FITTER or PA documentation, treatment plan, and medical decision making. Krissy Bowman MD 01/27/2019 8:44 PM documented in this encounter Plan of Treatment Not on file documented as of this encounter Procedures Procedure Name Priority Date/Time Associated Diagnosis Comments CT CHEST WO CONTRAST DIAGNOSTIC STAT 01/27/2019 7:20 PM EDT XR KNEE 3 VW LEFT STAT 01/27/2019 7:1 9 PM EDT documented in this encounter Results * CT Chest Without Contrast (01/27/2019 7:20 PM EDT) Anatomical Region Laterality Modality Chest N/A Computed Tomogra phy 01/27/2019 7:40 PM EDT Impressions 01/27/2019 7:40 PM EDT Authenticated by Jonathan Briceno MD on 01/27/2019 07:40:30 PM Narrative 01/27/2019 7:40 PM EDT FINAL REPORT TECHNIQUE: Axial images were obtained from the lung apex to the mid abdomen by computed tomography.This study was performed with techniques to keep radiation doses as low as reasonably achievable, (ALARA). Individualized dose reduction techniques using automated exposure control or adjustment of mA and/or kV according to the patient''s size were employed. CLINICAL HISTORY: . right rib injury fall FINDINGS: There is no axillary adenopathy. There is no hilar or mediastinal adenopathy. Heart size is normal. There is no pericardial or pleural effusion. Limited images of the upper abdomen are unremarkable. No suspicious infiltrate or nodule is identified. ??There is a healing right transverse process fracture of L3. ??There is no acute rib fracture. ??Impression: Healing right transverse process fracture of L3 Procedure Note Jonathan Briceno MD - 01/27/2019 FINAL REPORT TECHNIQUE: Axial images were obtained from the lung apex to the mid abdomen by computed tomography.This study was performed with techniques to keep radiation doses as low as reasonably achievable, (ALARA). Individualized dose reduction techniques using automated exposure control or adjustment of mA and/or kV according to the patient''s size were employed. CLINICAL HISTORY: . right rib injury fall FINDINGS: There is no axillary adenopathy. There is no hilar or mediastinal adenopathy. Heart size is normal. There is no pericardial or pleural effusion. Limited images of the upper abdomen are unremarkable. No suspicious infiltrate or nodule is identified. There is a healing right transverse process fracture of L3. There is no acute rib fracture. Impression: Healing right transverse process fracture of L3 IMPRESSION: Authenticated by Jonathan Briceno MD on 01/27/2019 07:40:30 PM Maikol Quiroz Jr., JOHN IM CT ORDERABLES Fin al Result * XR Knee 3 View Left (01/27/2019 7:19 PM EDT) Anatomical Region Laterality Modality Lower Extremities, Knee Left Radiogra [facility] 01/28/2019 7:08 AM EDT Impressions 01/28/2019 7:09 AM EDT No displaced fracture. This report was finalized on 01/28/2019 7:09 AM by Bubba Morel DO. Narrative 01/28/2019 7:09 AM EDT PROCEDURE: XR KNEE 3 VW LEFT- History: fall COMPARISON: None. FINDINGS: ??A 3 view exam demonstrates no displaced fracture or dislocation. The joint spaces are preserved. No soft tissue abnormality is seen. Procedure Note Bubba Morel DO - 01/28/2019 PROCEDURE: XR KNEE 3 VW LEFT- History: fall COMPARISON: None. FINDINGS: A 3 view exam demonstrates no displaced fracture or dislocation. The joint spaces are preserved. No soft tissue abnormality is seen. IMPRESSION: No displaced fracture. This report was finalized on 01/28/2019 7:09 AM by Bubba Morel DO. us Maikol Quiroz Jr., PA-Todd IMG DIAGNOSTIC IMAGIN G ORDERABLES Final Result documented in this encounter Visit Diagnoses Diagnosis Contusion of rib on right side, initial encounter- Primary Sprain of left knee, unspecified ligament, initial encounter documented in this encounter Administered Medications Inactive Administered Medications - up to 3 most recent administrations Medication Order MAR Action Action Date Dose Rate Site ketorolac (TORADOL) injection 15 mg 15 mg, Intravenous, Once, On 01/27/19 at 1908, For 1 dose, {BKC} If given for pain, use the following pain scale: Mild Pain = Pain Score of 1-3, CPOT 1-2 Moderate Pain = Pain Score of 4-6, CPOT 3-4 Severe Pain = Pain Score of 7-10, CPOT 5-8 Given 01/27/2019 7:23 PM EDT 15 mg documented in this encounter Active and Recently Administered Medications Times are shown in EDT. Scheduled Medication Order 01/25/2019 01/26/2019 01/27/2019 ketorolac (TORADOL) injection 15 mg (COMPLETED) 15 mg, Intravenous, Once, On 01/27/19 at 1908, For 1 dose, {BKC} If given for pain, use the following pain scale: Mild Pain = Pain Score of 1-3, CPOT 1-2 Moderate Pain = Pain Score of 4-6, CPOT 3-4 Severe Pain = Pain Score of 7-10, CPOT 5-8 1923 (Given - Provid er: Silvia Laird RN) documented in this encounter
--- OUTSIDE RECORDS SUMMARY | 2024-05-30 08:35 | XMS_ITS | Encounter Summary ---
Author Organization [facility] Address [address] [place] [id number] Care Team Providers Care Radio Host Name Role Phone Unavailable Primary Care Provider Unavailabl e Reason for Visit * Reason Comments Chest Pain Hyperglycemia Encounter Details Date Type Department Care Team (Late st Contact Info) Description 01/04/2019 9:34 PM EDT - 01/05/2019 1:06 AM EDT Emergency [facility] [address] [place] [phone] Jaquan Arenas, Chest pain, unspecified type (Primary Dx); Sinus headache Discharge Disposition: Home or Self Care Social [...] Sign Reading Time Taken Comments Blood Pressure 127/68 01/05/2019 1:06 AM EDT Pulse 85 01/05/2019 1:06 AM EDT Temperature 36.8 ??C (98.2 ??F) 01/04/2019 9:34 PM ED T Respiratory Rate 18 01/05/2019 1:06 AM EDT Oxygen Saturation 95% 01/05/2019 1:06 AM EDT Inhaled Oxygen Concentration - - Weight 103 kg (226 lb 3.2 oz) 01/04/2019 9:34 PM EDT Height 165.1 cm (5' 5 ) 01/04/2019 9:34 PM EDT Body Mass Index 37.64 01/04/2019 9:34 PM EDT documented in this encounter Discharge Instructions * Attachments The following attachments cannot be sent through Care Everywhere. * CHEST PAIN OBSERVATION (LITHUANIAN) * Sinus Headache (Chinese) documented in this encounter Medications at Time [...] Times a Day. 240 tablet 1 06/14/2018 doxycycline (MONODOX) 100 MG capsule Take 1 capsule by mouth 2 (Two) Times a Day for 7 days. 14 capsule 01/05/2019 01/13/20 19 amLODIPine-benazepr il (LOTREL 5-10) 5-10 MG [...] of this encounter ED Notes * Silvia Suarez RN - 01/05/2019 1:05 AM EDT Pt d/c'd IV prior to medication administration Silvia Suarez RN 01/05/19 0105 * Rashard Moody PA-C - 01/04/2019 10:29 PM EDT Subjective This patient states about 1 hour prior to arrival she developed substernal chest discomfort as wellas bilateral axillary discomfort. She is an insulin-dependent diabetic and has an insulin pump which she states gives her 52 units of insulin over the course of the day and she boluses herself with meals. Her history on her insulin pump reveals that she has been averaging 400 mg/dL. She denies any a bdominal pain. She does states she is also had a headache for the past 3 days which she was seen for here on 01/02/2019. Review of Systems Cardiovascular: Positive for chest pain. Endocrine: Hyperglycemia Neurological: Positive for headaches. All other systems [...] 10/17/2012 ??? SECTION ??? INDUCED 2006 [facility] History reviewed. No pertinent family history. Social [...] Exam Constitutional: She appears well-developed and well-nourished. Non-toxic appearance. She does not appear ill. No distress. HENT: Head: Normocephalic and atraumatic. Neck: Normal range of motion. Cardiovascular: Normal rate and regular rhythm. Pulmonary/Chest: Effort normal and breath sounds normal. Abdominal: Soft. Musculoskeletal: Right lower leg: Normal. Left lower leg: Normal. Neurological: She is alert. Skin: Skin is warm and dry. Psychiatric: She has a normal mood and affect. Her behavior is normal. Procedures ED Course ED Course as of Jan 05 004TueJan 05, 2019 0032 Baseline Creatinine: (!) 3.30 [TM] ED Course User Index [TM] Rashard Moody PA-C 12:43 AM Patient states that this time she is feeling much better. She thinks her pain was gas pain. She asks for something for her headache that she has that she was evaluated for here on 01/02/2019. She states she is having purulent mucus from blowing her nose, a frontal sinus headache with frontal sinus tenderness. She also states she has pressure in her bilateral ears. No fever. Suspect possible sinusitis this would also possibly cause her blood glucose to increase. Awaiting repeat troponin. If negative plan to discharge home will give antibiotic for sinusitis and instructed to continue insulin pump dosing as prescribed. She wishes to go home at this time. MDM Final diagnoses: Chest pain, unspecified type Sinus headache Rashard Moody PA-C 01/05/19 0043 Cosigned by Jaquan Arenas DO at 01/05/2019 6:04 AM EDT Associated attestation - Jaquan Arenas DO - 01/05/2019 6:04 AM EDT For this patient encounter, I reviewed the MANAGER CALL or PA documentation, treatment plan, and medical decision making. Jaquan Arenas DO 01/05/2019 6:04 AM documented in this encounter Plan of Treatment Not on file documented as of this encounter Procedures Procedure Name Priority Date/Time Associated Diagnosis Comments TROPONIN STAT 01/05/2019 12:11 AM EDT POCT GLUCOSE FINGERSTICK STAT 01/05/2019 12:02 AM EDT GOLD TOP - SST STAT 01/04/2019 10:12 PM EDT DK GREEN TOP STAT 01/04/2019 10:12 PM EDT URINALYSIS, MICROSCOPIC ONLY STAT 01/04/2019 10:12 PM EDT URINALYSIS W/ MICROSCOPIC IF INDICATED (NO CULTURE) STAT 01/04/2019 10:12 PM EDT CBC WITH AUTO DIFFERENTIAL STAT 01/04/2019 10:12 PM EDT LAVENDER TOP STAT 01/04/2019 10:12 PM EDT LIGHT GREEN TOP STAT 01/04/2019 10:12 PM EDT LIGHT BLUE TOP STAT 01/04/2019 10:12 PM EDT RAINBOW DRAW STAT 01/04/2019 10:12 PM EDT TROPONIN STAT 01/04/2019 10:12 PM EDT , URINE STAT 01/04/2019 10:1 2 PM EDT CBC AND DIFFERENTIAL STAT 01/04/2019 10:12 PM EDT COMPREHENSIVE METABOLIC PANEL STAT 01/04/2019 10:12 PM EDT XR CHEST 2 VW STAT 01/04/2019 9:55 PM EDT POCT GLUCOSE FINGERSTICK STAT 01/04/2019 9:40 PM EDT documented in this encounter Results * Troponin (01/05/2019 12:11 AM EDT) Troponin I <0.012 0.000 - 0.034 ng/mL 01/05/2019 12:40 AM EDT [facility] Blood Venipuncture / Unknown 01/05/2019 12:11 AM EDT 01/05/2019 12:14 AM EDT Narrative [facility] - 01/05/2019 12:40 AM EDT Normal Patient Upper Reference Limit (URL) (99th Percentile)=0.03 ng/mL Non-AMI Illness Reference Limit=0.03-0.11 ng/mL AMI Confirmation=0.12 ng/mL and above us Rashard Moody PA-C LAB BLOOD ORDERABL ES Final Result [facility]
[address] [place] [address], * (ABNORMAL) POC Glucose Once (01/05/2019 12:02 AM EDT) Glucose 238(H) 70 - 130 mg/dL 01/05/2019 12:05 AM EDT [facility] Comment:Serial Number: [id number] Blood 01/05/2019 12:0 2 AM EDT 01/05/2019 12:05 AM EDT us Jaquan Arenas DO POINT OF CARE TEST ORDERABLES F inal Result [facility]
[address] [place] [id number], * (ABNORMAL) Urinalysis, Microscopic Only - Urine, Clean Catch (01/04/2019 10:12 PM EDT) Pathologist [facility] RBC, UA 3-5(A) None Seen /HPF 01/04/2019 10:39 PM EDT [facility] WBC, UA None Seen None Seen /HPF 01/04/2019 10:39 PM EDT [facility] Bacteria, UA Trace(A) None Seen /HPF 01/04/2019 10:39 PM EDT [facility] Squamous Epithelial Cells, UA 3-6(A) None Seen, 0-2 /HPF 01/04/2019 10:39 PM EDT [facility] Hyaline Casts, UA None Seen None Seen /LPF 01/04/2019 10:39 PM EDT [facility] Methodology Manual Light Microscopy 01/04/2019 10:39 PM EDT [facility] Urine Urine specimen collection, clean catch / Unknown Collection / Unknown 01/04/2019 10:12 PM EDT 01/04/2019 10:17 PM EDT us Jaquan Arenas DO URINE ORDERABLES Final Result [facility]
[address] [place] [address], [place] [phone] * Green Top (No Gel) (01/04/2019 10:12 PM EDT) Extra Tube Hold for add-ons. 01/04/2019 11:15 PM EDT [facility] Comment:Auto resulted. Blood Venipuncture / Unknown 01/04/2019 10:12 PM EDT 01/04/2019 10:18 PM EDT us Jaquan Arenas DO LAB BLOOD ORDER ONLY Final Resu lt Performing Organization Address City/[facility]/ZIP Co de Phone Number [facility]
[address] [place] [id number], * Gold Top - SST (01/04/2019 10:12 PM EDT) Extra Tube Hold for add-ons. 01/04/2019 11:15 PM EDT [facility] Comment:Auto resulted. Blood Venipuncture / Unknown 01/04/2019 10:12 PM EDT 01/04/2019 10:17 PM EDT us Jaquan Arenas DO LAB BLOOD ORDER ONLY Final Resu lt Performing Organization Address City/[facility]/ZIP Co de Phone Number [facility]
[address] [place] [address], [place] [phone] * Lavender Top (01/04/2019 10:12 PM EDT) Extra Tube hold for add-on 01/04/2019 11:15 PM EDT [facility] Comment:Auto resulted Blood Venipuncture / Unknown 01/04/2019 10:12 PM EDT 01/04/2019 10:17 PM EDT us Jaquan Arenas DO LAB BLOOD ORDER ONLY Final Resu lt [facility]
[address] [place] [address], [place] [phone] * Green Top (Gel) (01/04/2019 10:12 PM EDT) Extra Tube Hold for add-ons. 01/04/2019 11:15 PM EDT [facility] Comment:Auto resulted. Blood Venipuncture / Unknown 01/04/2019 10:12 PM EDT 01/04/2019 10:18 PM EDT us Jaquan Arenas LAB BLOOD ORDER ONLY Final Resu lt Performing Organization Address City/[facility]/ZIP Co de Phone Number [facility]
[address] [place] [address], [place] [phone] * Light Blue Top (01/04/2019 10:12 PM EDT) Extra Tube hold for add-on 01/04/2019 11:15 PM EDT [facility] Comment:Auto resulted Blood Venipuncture / Unknown 01/04/2019 10:12 PM EDT 01/04/2019 10:18 PM EDT Jaquan Arenas LAB BLOOD ORDER ONLY Final Resu lt Performing Organization Address City/[facility]/ZIP Co de Phone Number [facility]
[address] [place] [address], * (ABNORMAL) Urinalysis With Microscopic If Indicated (No Culture) - Urine, Clean Catch (01/04/2019 10:12 PM EDT) Color, UA Yellow Yellow, Straw 01/04/2019 10:39 PM EDT [facility] Appearance, UA Clear Clear 01/04/2019 10:39 PM EDT [facility] pH, UA 6.0 5.0 - 8.0 01/04/2019 10:39 PM EDT [facility] Specific [place], UA 1.013 1.005 - 1.030 01/04/2019 10:39 PM EDT [facility] Glucose, UA >=1000 mg/dL (3+)(A) Negative 01/04/2019 10:39 PM EDT [facility] Ketones, UA Negative Negative 01/04/2019 10:39 PM EDT [facility] Bilirubin, UA Negative Negative 01/04/2019 10:39 PM EDT [facility] Blood, UA Trace(A) Negative 01/04/2019 10:39 PM EDT [facility] Protein, UA >=300 mg/dL (3+)(A) Negative 01/04/2019 10:39 PM EDT [facility] Leuk Esterase, UA Negative Negative 01/04/2019 10:39 PM EDT [facility] Nitrite, UA Negative Negative 01/04/2019 10:39 PM EDT [facility] Urobilinogen, UA 0.2 E.U./dL 0.2 - 1.0 E.U./dL 01/04/2019 10:39 PM EDT [facility] Urine Urine specimen collection, clean catch / Unknown Collection / Unknown 01/04/2019 10:12 PM EDT 01/04/2019 10:17 PM EDT us Jaquan Arenas DO URINE ORDERABLES Final Result [facility]
[address] [place] [address], * , Urine - Urine, Clean Catch (01/04/2019 10:12 PM EDT) HCG, Urine QL Negative Negative 01/04/2019 10:25 PM EDT [facility] Urine Urine specimen collection, clean catch / Unknown Collection / Unknown 01/04/2019 10:12 PM EDT 01/04/2019 10:17 PM EDT us Jaquan Arenas DO URINE ORDERABLES Final Result [facility]
[address] [place] [address], [place] [phone] * (ABNORMAL) CBC Auto Differential (01/04/2019 10:12 PM EDT) WBC 9.42 3.40 - 10.80 10*3/mm3 01/04/2019 10:21 PM EDT [facility] RBC 3.60(L) 3.77 - 5.28 10*6/mm3 01/04/2019 10:21 PM EDT [facility] Hemoglobin 10.2(L) 12.0 - 15.9 g/dL 01/04/2019 10:21 PM EDT [facility] Hematocrit 31.6(L) 34.0 - 46.6 % 01/04/2019 10:21 PM EDT [facility] MCV 87.8 79.0 - 97.0 fL 01/04/2019 10:21 PM EDT [facility] MCH 28.3 26.6 - 33.0 pg 01/04/2019 10:21 PM EDT [facility] MCHC 32.3 31.5 - 35.7 g/dL 01/04/2019 10:21 PM EDT [facility] RDW 12.8 12.3 - 15.4 % 01/04/2019 10:21 PM EDT [facility] RDW-SD 40.7 37.0 - 54.0 fl 01/04/2019 10:21 PM EDT [facility] MPV 12.7(H) 6.0 - 12.0 fL 01/04/2019 10:21 PM EDT [facility] Platelets 217 140 - 450 10*3/mm3 01/04/2019 10:21 PM EDT [facility] Neutrophil % 53.3 42.7 - 76.0 % 01/04/2019 10:21 PM EDT [facility] Lymphocyte % 34.3 19.6 - 45.3 % 01/04/2019 10:21 PM EDT [facility] Monocyte % 7.1 5.0 - 12.0 % 01/04/2019 10:21 PM EDT [facility] Eosinophil % 4.6 0.3 - 6.2 % 01/04/2019 10:21 PM EDT [facility] Basophil % 0.3 0.0 - 1.5 % 01/04/2019 10:21 PM EDT [facility] Immature Grans % 0.4 0.0 - 0.5 % 01/04/2019 10:21 PM EDT [facility] Neutrophils, Absolute 5.02 1.70 - 7.00 10*3/mm3 01/04/2019 10:21 PM EDT [facility] Lymphocytes, Absolute 3.23(H) 0.70 - 3.10 10*3/mm3 01/04/2019 10:21 PM EDT [facility] Monocytes, Absolute 0.67 0.10 - 0.90 10*3/mm3 01/04/2019 10:21 PM EDT [facility] Eosinophils, Absolute 0.43(H) 0.00 - 0.40 10*3/mm3 01/04/2019 10:21 PM EDT [facility] Basophils, Absolute 0.03 0.00 - 0.20 10*3/mm3 01/04/2019 10:21 PM EDT [facility] Immature Grans, Absolute 0.04 0.00 - 0.05 10*3/mm3 01/04/2019 10:21 PM EDT [facility] nRBC 0.0 0.0 - 0.2 /100 WBC 01/04/2019 10:21 PM EDT [facility] Blood Venipuncture / Unknown 01/04/2019 10:12 PM EDT 01/04/2019 10:17 PM EDT us Jaquan Arenas DO LAB BLOOD ORDERABLES Final Resu lt [facility]
[address] [place] [address], * Troponin (01/04/2019 10:12 PM EDT) Troponin I <0.012 0.000 - 0.034 ng/mL 01/04/2019 10:48 PM EDT [facility] Blood Venipuncture / Unknown 01/04/2019 10:12 PM EDT 01/04/2019 10:18 PM EDT Narrative [facility] - 01/04/2019 10:48 PM EDT Normal Patient Upper Reference Limit (URL) (99th Percentile)=0.03 ng/mL Non-AMI Illness Reference Limit=0.03-0.11 ng/mL AMI Confirmation=0.12 ng/mL and above us Jaquan Arenas DO LAB BLOOD ORDERABLES Final Resu lt [facility]
[address] [place] [id number], * (ABNORMAL) Comprehensive Metabolic Panel (01/04/2019 10:12 PM EDT) Glucose 320(H) 74 - 98 mg/dL 01/04/2019 10:48 PM EDT [facility] Comment:Glucose >180, Hemogl obin A1C recommended. BUN 42(H) 7 - 20 mg/dL 01/04/2019 10:48 PM EDT [facility] Creatinine 3.30(H) 0.60 - 1.30 mg/dL 01/04/2019 10:48 PM EDT [facility] Sodium 136(L) 137 - 145 mmol/L 01/04/2019 10:48 PM EDT [facility] Potassium 4.2 3.5 - 5.1 mmol/L 01/04/2019 10:48 PM EDT [facility] Chloride 102 98 - 107 mmol/L 01/04/2019 10:48 PM EDT [facility] CO2 22.0(L) 26.0 - 30.0 mmol/L 01/04/2019 10:48 PM EDT [facility] Calcium 8.1(L) 8.4 - 10.2 mg/dL 01/04/2019 10:48 PM EDT [facility] Total Protein 7.0 6.3 - 8.2 g/dL 01/04/2019 10:48 PM EDT [facility] Albumin 4.00 3.50 - 5.00 g/dL 01/04/2019 10:48 PM EDT [facility] ALT (SGPT) 23 13 - 69 U/L 01/04/2019 10:48 PM EDT [facility] AST (SGOT) 13(L) 15 - 46 U/L 01/04/2019 10:48 PM EDT [facility] Alkaline Phosphatase 71 38 - 126 U/L 01/04/2019 10:48 PM EDT [facility] Total Bilirubin 0.1(L) 0.2 - 1.3 mg/dL 01/04/2019 10:48 PM EDT [facility] eGFR Non Amer 17(L) >60 mL/min/1.7 3 01/04/2019 10:48 PM EDT [facility] Globulin 3.0 gm/dL 01/04/2019 10:48 PM EDT [facility] A/G Ratio 1.3 1.0 - 2.0 g/dL 01/04/2019 10:48 PM EDT [facility] BUN/Creatinine Ratio 12.7 7.1 - 23.5 01/04/2019 10:48 PM EDT [facility] Anion Gap 16.2 10.0 - 20.0 mmol/L 01/04/2019 10:48 PM EDT [facility] Blood Venipuncture / Unknown 01/04/2019 10:12 PM EDT 01/04/2019 10:18 PM EDT Narrative [facility] - 01/04/2019 10:48 PM EDT GFR Normal >60 Chronic Kidney Disease <60 Kidney Failure <15 us Jaquan Arenas DO LAB BLOOD ORDERABLES Final Resu lt [facility]
[address] [place] [address], * XR Chest 2 View (01/04/2019 9:55 PM EDT) Anatomical Region Laterality Modality Body N/A Radiographic Kim ging 01/05/2019 7:52 AM EDT Impressions 01/05/2019 7:52 AM EDT No acute cardiopulmonary process. This report was finalized on 01/05/2019 7:52 AM by Brittny Lacye M.D.. Narrative 01/05/2019 7:52 AM EDT PROCEDURE: XR CHEST 2 VW- ?? HISTORY: chest pain COMPARISON: 08/28/2018. FINDINGS: The heart is normal in size. The mediastinum is unremarkable. The lungs are clear. There is no pneumothorax. There are no acute osseous abnormalities. Procedure Note Brittny Lacey MD - 01/05/2019 PROCEDURE: XR CHEST 2 VW- HISTORY: chest pain COMPARISON: 08/28/2018. FINDINGS: The heart is normal in size. The mediastinum is unremarkable. The lungs are clear. There is no pneumothorax. There are no acute osseous abnormalities. IMPRESSION: No acute cardiopulmonary process. This report was finalized on 01/05/2019 7:52 AM by Brittny Lacey M.D.. us Jaquan Arenas DO IMG DIAGNOSTIC IMAGING ORDERABL ES Final Result * (ABNORMAL) POC Glucose Once (01/04/2019 9:40 PM EDT) Glucose 402(H) 70 - 130 mg/dL 01/04/2019 9:45 PM EDT [facility] Comment:Serial Number: [id number] Blood 01/04/2019 9:40 PM EDT 01/04/2019 9:45 PM EDT us Jaquan Arenas DO POINT OF CARE TEST ORDERABLES F inal Result [facility]
[address] [place] [id number], [place] [phone] documented in this encounter Visit Diagnoses Diagnosis Chest pain, unspecified type- Primary Sinus headache Headache documented in this encounter Administered Medications Inactive Administered Medications - up to 3 most recent administrations Medication Order MAR Action Action Date Dose Rate Site insulin regular (humuLIN R,novoLIN R) injection 10 Units 10 Units, Intravenous, Once, On Emma 01/04/19 at 2215, For 1 dose, {BKC} Caution: Look alike/sound alike drug alert{BKC} Given 01/04/2019 10:19 PM EDT 10 Units sodium chloride 0.9 % bolus 1,000 mL 1,000 mL, Intravenous, at 2,000 mL/hr, Administer over 0.5 Hours, Once, On Tue01/04/19 at 2152, For 1 dose New Bag 01/04/2019 10:19 PM EDT 1,000 mL 2000 mL/hr sodium chloride 0.9 % bolus 1,000 mL 1,000 mL, Intravenous, at 2,000 mL/hr, Administer over 0.5 Hours, Once, On Emma 01/04/19 at 2214, For 1 dose New Bag 01/04/2019 11:26 PM EDT 1,000 mL 2000 mL/hr documented in this encounter Active and Recently Administered Medications Times are shown in EDT. Scheduled Medication Order 01/03/2019 01/04/2019 01/05/2019 diphenhydrAMINE (BENADRYL) injection 12.5 mg 12.5 mg, Intravenous, Once, On Tue01/05/19 at 0041, For 1 dose, {BKC} This med may be ordered in other forms and routes. Before giving verify the last time the drug was given by any route/form. 25 mg may be given IV push over less than 1 minute. 0105 (Not Given - Provider: Silvia Suarez, HERNÁN - Reason: Loss of IV access) insulin regular (humuLIN R,novoLIN R) injection 10 Units (COMPLETED) 10 Units, Intravenous, Once, On Emma 01/04/19 at 2215, For 1 dose, {BKC} Caution: Look alike/sound alike drug alert{BKC} 2219 (Given - Provider: Silvia Mcmahan RN) metoclopramide (REGLAN) injection 10 mg 10 mg, Intravenous, Once, On Tue01/05/19 at 0041, For 1 dose 0105 (Not Given - Provider: Silvia Suarez, HERNÁN - Reason: Loss of IV access) sodium chloride 0.9 % bolus 1,000 mL (COMPLETED) 1,000 mL, Intravenous, at 2,000 mL/hr, Administer over 0.5 Hours, Once, On Emma 01/04/19 at 2152, For 1 dose 2219 (New Bag - Provider: Silvia Mcmahan, HERNÁN)2327 (Stopped - Provider: Silvia Mcmahan RN) sodium chloride 0.9 % bolus 1,000 mL (COMPLETED) 1,000 mL, Intravenous, at 2,000 mL/hr, Administer over 0.5 Hours, Once, On Emma 01/04/19 at 2214, For 1 dose 2326 (New Bag - Provider: Silvia Mcmahan RN) 0107 (Stopped - Provider: Silvia Suarez, HERNÁN) documented in this encounter
--- OUTSIDE RECORDS SUMMARY | 2024-05-30 08:35 | XMS_ITS | Encounter Summary ---
[facility] Address [address] [place] [id number] Care Team Providers Care Svp Programmatic Tv Name Role Phone Unavailable Primary Care Provider Unavailabl e Reason for Visit * Reason Comments Headache Encounter Details Date Type Department Care Team (Late st Contact Info) Description 02/13/2019 7:53 PM EDT - 02/13/2019 9:20 PM EDT Emergency [facility] [address] [place] [address] Phill Gama, DO [address] [place], [place] [id number] Folliculitis (Primary Dx); Nonintractable headache, unspecified chronicity pattern, unspecified headache type Discharge Disposition: Home or Self Care [...] Sign Reading Time Taken Comments Blood Pressure 172/102 02/13/2019 7:46 PM EDT Pulse 96 02/13/2019 7:46 PM EDT Temperature 37 ??C (98.6 ??F) 02/13/2019 7:46 PM EDT Respiratory Rate 18 02/13/2019 7:46 PM EDT Oxygen Saturation 98% 02/13/2019 7:46 PM EDT Inhaled Oxygen Concentration - - Weight 102 kg (225 lb) 02/13/2019 7:46 PM EDT Height 165.1 cm (5' 5 ) 02/13/2019 7:46 PM EDT Body Mass Index 37.44 02/13/2019 7:46 PM EDT documented in this encounter Discharge Instructions * Attachments The following attachments cannot be sent through Care Everywhere. * General Headache Without Cause [id number] (Chadian) documented in this encounter Medications at Time [...] Times a Day. 240 tablet 1 06/14/2018 cephalexin (KEFLEX) 500 MG capsule Take 1 capsule by mouth 3 (Three) Times a Day for 5 days. 15 capsule 02/13/2019 02/19/20 19 amLODIPine-benazepr il (LOTREL 5-10) 5-10 MG [...] ED Notes * Rashard Moody PA-C - 02/13/2019 8:35 PM EDT Subjective This patient states she has had a frontal headache for 4 days. She also noticed a bump on the rightside of her scalp today she expresses concern because 2 aunts on her father's side have a history of brain cancer/brain tumors and she states she has never had a CT scan of her head to evaluate her for this. She states she has headaches almost daily and has for years and her PCP has never worked her up for these. She does not take any medication for her headaches and has never been formally diagnosed with migraines. She states she is under a lot of stress lately as her grandmother just under unsavory circumstances. Review of Systems Skin: Bump on scalp Neurological: Positive for headaches. All other systems [...] 10/17/2012 ??? SECTION ??? INDUCED 2006 [facility] History reviewed. No pertinent family [...] developed and well-nourished. No distress. HENT: Head: Atraumatic. Very small area of folliculitis/ingrown hair to the right parietal area. Eyes: EOM are normal. Neck: Normal range of motion. Neck supple. Cardiovascular: Normal rate and regular rhythm. Pulmonary/Chest: Effort normal. Abdominal: Soft. Musculoskeletal: Normal range of motion. Neurological: She is alert and oriented to person, place, and time. Skin: Skin is warm and dry. She is not diaphoretic. Psychiatric: She has a normal mood and affect. Her behavior is normal. Thought content normal. Procedures ED Course 9:14 PM Patient comes out stating that she wishes to be discharged to go home. She states there is a familyshe she needs to attend to. She has not had her CT scan yet. She states his headache is consistent with her past ones and she does not wish to have a CT scan although she just asked for one not even an hour ago. MDM Final diagnoses: Folliculitis Nonintractable headache, unspecified chronicity pattern, unspecified headache type Rashard Moody PA-C 02/13/19 7896 Cosigned by Phill Gama DO at 02/13/2019 10:54 PM EDT Associated attestation - Phill Gama DO - 02/13/2019 10:54 PM EDT For this patient encounter, I reviewed the CONVERSION WORKER or PA documentation, treatment plan, and medical decision making. Phill Gama DO 02/13/2019 10:54 PM documented in this encounter Plan of Treatment Not on file documented as of this encounter Visit Diagnoses Diagnosis Folliculitis- Primary Other specified disease of hair and hair follicles Nonintractable headache, unspecified chronicity pattern, unspecified headache type documented in this encounter Administered Medications Inactive Administered Medications - up to 3 most recent administrations Medication Order MAR Action Action Date Dose Rate Site ftcdjveimn-lxquwuiuiyoak-qxcwmjk e (FIORICET, ESGIC) 50-325-40 MG per tablet 1 tablet 1 tablet, Oral, Once, On Tue02/13/19 at 2033, For 1 dose, Do not exceed 4g of acetaminophen in a 24 hour period. Maximum 6 doses per 24 hours. Given 02/13/2019 8:47 PM EDT 1 tablet diphenhydrAMINE (BENADRYL) injection 12.5 mg 12.5 mg, Intravenous, Once, On Tue02/13/19 at 2033, For 1 dose, {BKC} This med may be ordered in other forms and routes. Before giving verify the last time the drug was given by any route/form. 25 mg may be given IV push over less than 1 minute. Given 02/13/2019 8:43 PM EDT 12.5 mg metoclopramide (REGLAN) injection 10 mg 10 mg, Intravenous, Once, On Tue02/13/19 at 2033, For 1 dose Given 02/13/2019 8:39 PM EDT 10 mg documented in this encounter Active and Recently Administered Medications Times are shown in EDT. Scheduled Medication Order 02/11/2019 02/12/2019 02/13/2019 poxpybvjnu-eopzxlitkiwyn-ovzhswlv (FIORICET, ESGIC) 50-325-40 MG per tablet 1 tablet (COMPLETED) 1 tablet, Oral, Once, On Tue02/13/19 at 2033, For 1 dose, Do not exceed 4g of acetaminophen in a 24 hour period. Maximum 6 doses per 24 hours. 2046 (Given - Provid er: Stephani Hutton RN) diphenhydrAMINE (BENADRYL) injection 12.5 mg (COMPLETED) 12.5 mg, Intravenous, Once, On Tue02/13/19 at 2033, For 1 dose, {BKC} This med may be ordered in other forms and routes. Before giving verify the last time the drug was given by any route/form. 25 mg may be given IV push over less than 1 minute. 2042 (Given - Provid er: Stephani Hutton RN) metoclopramide (REGLAN) injection 10 mg (COMPLETED) 10 mg, Intravenous, Once, On Tue02/13/19 at 2033, For 1 dose 2038 (Given - Provid er: Stephani Hutton RN) documented in this encounter
--- OUTSIDE RECORDS SUMMARY | 2024-05-30 08:35 | XMS_ITS | Encounter Summary ---
Author Organization [facility] Address [address] [place] [id number] Care Team Providers Care Bus Person Name Role Phone Unavailable Primary Care Provider Unavailabl e Reason for Visit * Reason Comments Flu Symptoms Encounter Details Date Type Department Care Team (Late st Contact Info) Description 05/03/2019 3:44 PM EDT - 05/03/2019 5:01 PM EDT Emergency [facility] [address] [place] [phone] Christopher Aggarwal MD Acute bronchitis, unspecified organism (Primary Dx) Discharge Disposition: Home or Self [...] Sign Reading Time Taken Comments Blood Pressure 131/99 05/03/2019 3:34 PM EDT Pulse 86 05/03/2019 3:34 PM EDT Temperature 36.7 ??C (98 ??F) 05/03/2019 3:34 PM EDT Respiratory Rate 17 05/03/2019 3:34 PM EDT Oxygen Saturation 99% 05/03/2019 3:34 PM EDT Inhaled Oxygen Concentration - - Weight 107 kg (235 lb) 05/03/2019 3:34 PM EDT Height 165.1 cm (5' 5 ) 05/03/2019 3:34 PM EDT Body Mass Index 39.11 05/03/2019 3:34 PM EDT documented in this encounter Discharge Instructions * Attachments The following attachments cannot be sent through Care Everywhere. * Acute Bronchitis Adult Pejs-jx-Coyw (Nauruan) documented in this encounter Medications at Time [...] (One) Time for 1 dose. 1 tablet 05/03/2019 05/03/20 19 amLODIPine-benazepr il (LOTREL 5-10) 5-10 MG [...] as of this encounter ED Notes * Bc Dumont PA-C - 05/03/2019 3:44 PM EDT Subjective The patient is here with complaint of some nasal sinus congestion yellow nasal discharge with some cough yellowish color sputum since this morning some myalgias no fever some chills reported no vomiting or diarrhea no abdominal pain reported no chest pain reported again symptoms onset this morning History provided by: Patient Review of Systems Constitutional: Positive for chills. Negative for fever. HENT: Positive for congestion, rhinorrhea and sore throat. Eyes: Negative. Respiratory: Positive for cough. Negative for shortness of breath. Cardiovascular: Negative. Gastrointestinal: Negative. Genitourinary: Negative. Musculoskeletal: Positive for myalgias. Negative for neck pain and neck stiffness. Skin: Negative. Neurological: Negative. Psychiatric/Behavioral: The patient is nervous/anxious. All other systems reviewed and are negative. [...] appears well- developed and well-nourished. No distress. Afebrile nontoxic no acute distress... Ambulatory in the exam room HENT: Head: Normocephalic and atraumatic. Right Ear: External ear normal. Left Ear: External ear normal. Mouth/Throat: Oropharynx is clear and moist. No oropharyngeal exudate. Posterior pharynx clear uvula midline no airway compromise Eyes: Conjunctivae and EOM are normal. Pupils are equal, round, and reactive to light. Neck: Normal range of motion. Neck supple. No meningismus Cardiovascular: Normal rate, regular rhythm and intact distal pulses. Pulmonary/Chest: Effort normal and breath sounds normal. Abdominal: Soft. Bowel sounds are normal. There is no tenderness. Musculoskeletal: Normal range of motion. She exhibits no edema. Neurological: She is alert and oriented to person, place, and time. No cranial nerve deficit or sensory deficit. She exhibits normal muscle tone. Coordination normal. Skin: Skin is warm and dry. Capillary refill takes less than 2 seconds. No rash noted. She is not diaphoretic. No erythema. Psychiatric: She has a normal mood and affect. Her behavior is normal. Judgment and thought contentnormal. Nursing note and vitals reviewed. Procedures ED Course ED Course as of May 03 1656 Emma May 03, 2019 1649 Patient sitting up resting comfortably no acute distress texting on her phone, will plan on discharging home with antibiotic treat for bronchitis, follow-up with PCP tomorrow return to the ER for any problem with follow-up any worsening symptom concerns patient agreeable with plan [SC] ED Course User Index [SC] Bc Dumont PA-C MDM Number of Diagnoses or Management Options Amount and/or Complexity of Data Reviewed Review and summarize past medical records: yes Discuss the patient with other providers: yes Risk of Complications, Morbidity, and/or Mortality Presenting problems: low Diagnostic procedures: low Management options: low Final diagnoses: Acute bronchitis, unspecified organism Bc Dumont PA-C 05/03/19 1656 Cosigned by Christopher Aggarwal MD at 05/03/2019 5:40 PM EDT Associated attestation - Christopher Aggarwal MD - 05/03/2019 5:40 PM EDT For this patient encounter, I reviewed the HOSPICE FELLOW or PA documentation, treatment plan, and medical decision making. Christopher Aggarwal MD 05/03/2019 5:40 PM documented in this encounter Plan of Treatment Not on file documented as of this encounter Procedures Procedure Name Priority Date/Time Associated Diagnosis Comments XR CHEST 2 VW STAT 05/03/2019 4:24 PM EDT URINALYSIS, MICROSCOPIC ONLY STAT 05/03/2019 4:05 PM EDT URINALYSIS W/ CULTURE IF INDICATED STAT 05/03/2019 4:05 PM EDT , URINE STAT 05/03/2019 4:05 PM EDT RAPID STREP SCREEN STAT 05/03/2019 3: 51 PM EDT INFLUENZA ANTIGEN, RAPID STAT 05/03/2019 3:51 PM EDT BETA HEMOLYTIC STREP CULTURE, THROAT STAT 05/03/2019 3:51 PM EDT documented in this encounter Results * XR Chest 2 View (05/03/2019 4:24 PM EDT) Anatomical Region Laterality Modality Body N/A Radiographic Kim ging 05/03/2019 7:10 PM EDT Impressions 05/03/2019 7:10 PM EDT No acute disease. Authenticated by Bradley Jiménez MD on 05/03/2019 07:10:04 PM Narrative 05/03/2019 7:10 PM EDT FINAL REPORT TECHNIQUE: PA and lateral views of the chest were obtained. CLINICAL HISTORY: . cough FINDINGS: The lungs are clear. ??The mediastinum and cardiac silhouette are unremarkable. Procedure Note Bradley Jiménez MD - 05/03/2019 FINAL REPORT TECHNIQUE: PA and lateral views of the chest were obtained. CLINICAL HISTORY: . cough FINDINGS: The lungs are clear. The mediastinum and cardiac silhouette are unremarkable. IMPRESSION: No acute disease. Authenticated by Bradley Jiménez MD on 05/03/2019 07:10:04 PM Bc Dumont PA-C IMG DIAGNOSTIC IMAGING ORDERABLES Final Result * (ABNORMAL) Urinalysis, Microscopic Only - Urine, Clean Catch (05/03/2019 4:05 PM EDT) RBC, UA 0-2(A) None Seen /HPF 05/03/2019 4:31 PM EDT [facility] WBC, UA 0-2(A) None Seen /HPF 05/03/2019 4:31 PM EDT [facility] Bacteria, UA 1+(A) None Seen /HPF 05/03/2019 4:31 PM EDT [facility] Squamous Epithelial Cells, UA 0-2 None Seen, 0-2 /HPF 05/03/2019 4:31 PM EDT [facility] Hyaline Casts, UA None Seen None Seen /LPF 05/03/2019 4:31 PM EDT [facility] Methodology Manual Light Microscopy 05/03/2019 4:31 PM EDT [facility] Urine Urine specimen collection, clean catch / Unknown Collection / Unknown 05/03/2019 4:05 PM EDT 05/03/2019 4:07 PM EDT Bc Dumont PA-C URINE ORDERABLES Final Result [facility]
[address] [place] [address], [place] [phone] * (ABNORMAL) Urinalysis With Culture If Indicated - Urine, Clean Catch (05/03/2019 4:05 PM EDT) Color, UA Yellow Yellow, Straw 05/03/2019 4:13 PM EDT [facility] Appearance, UA Clear Clear 05/03/2019 4:13 PM EDT [facility] pH, UA 7.0 5.0 - 8.0 05/03/2019 4:13 PM EDT [facility] Specific [place], UA 1.010 1.005 - 1.030 05/03/2019 4:13 PM EDT [facility] Glucose, UA Negative Negative 05/03/2019 4:13 PM EDT [facility] Ketones, UA Negative Negative 05/03/2019 4:13 PM EDT [facility] Bilirubin, UA Negative Negative 05/03/2019 4:13 PM EDT [facility] Blood, UA Negative Negative 05/03/2019 4:13 PM EDT [facility] Protein, UA >=300 mg/dL (3+)(A) Negative 05/03/2019 4:13 PM EDT [facility] Leuk Esterase, UA Negative Negative 05/03/2019 4:13 PM EDT [facility] Nitrite, UA Negative Negative 05/03/2019 4:13 PM EDT [facility] Urobilinogen, UA 0.2 E.U./dL 0.2 - 1.0 E.U./dL 05/03/2019 4:13 PM EDT [facility] Urine Urine specimen collection, clean catch / Unknown Collection / Unknown 05/03/2019 4:05 PM EDT 05/03/2019 4:07 PM EDT Bc MENDEZ-Todd URINE ORDERABLES Final Result Performing Organization Address City/[facility]/ZIP Co de Phone Number [facility]
[address] [place] [address], [place] [phone] * , Urine - Urine, Clean Catch (05/03/2019 4:05 PM EDT) HCG, Urine QL Negative Negative 05/03/2019 4:14 PM EDT [facility] Urine Urine specimen collection, clean catch / Unknown Collection / Unknown 05/03/2019 4:05 PM EDT 05/03/2019 4:07 PM EDT Bc MENDEZ-C URINE ORDERABLES Final Result Performing Organization Address [facility] de Phone Number [facility]
[address] [place] [address], [place] [phone] * Beta Strep Culture, Throat - Swab, Throat (05/03/2019 3:51 PM EDT) Throat Culture, Beta Strep No Beta Hemolytic Streptococcus Isolated KIRA 05/05/2019 8:17 AM EDT [facility] Swab Specimen from throat / Unknown Collection / Unknown 05/03/2019 3:51 PM EDT 05/03/2019 3:54 PM EDT Narrative [facility] - 05/05/2019 8:17 AM EDT Group A Strep incidence is low in adults. Positive culture for Beta hemolytic Streptococcus species can reflect colonization and not true infection. Please correlate clinically. Christopher Aggarwal MD MICROBIOLOGY - GENERAL O RDERABLES Final Result Performing Organization Address City/[facility]/ZIP Co de Phone Number [facility]
[address] [place] [address], [place] [phone] * Influenza Antigen, Rapid - Swab, Nasopharynx (05/03/2019 3:51 PM EDT) Influenza A Ag, EIA Negative Negative 05/03/2019 4:07 PM EDT [facility] Influenza B Ag, EIA Negative Negative 05/03/2019 4:07 PM EDT [facility] Swab Nasopharyngeal structure / Unknown Collection / Unknown 05/03/2019 3:51 PM EDT 05/03/2019 3:53 PM EDT Christopher Aggarwal MD MICROBIOLOGY - GENERAL O RDERABLES Final Result Performing Organization Address City/[facility]/ZIP Co de Phone Number [facility]
[address] [place] [address], [place] [phone] * Rapid Strep A Screen - Swab, Throat (05/03/2019 3:51 PM EDT) Strep A Ag Negative Negative 05/03/2019 4:05 PM EDT [facility] Swab Specimen from throat / Unknown Collection / Unknown 05/03/2019 3:51 PM EDT 05/03/2019 3:54 PM EDT Christopher Aggarwal MD MICROBIOLOGY - GENERAL O RDERABLES Final Result Performing Organization Address City/[facility]/ZIP Co de Phone Number [facility]
[address] [place] [address], [place] [phone] documented in this encounter Visit Diagnoses Diagnosis Acute bronchitis, unspecified organism- Primary documented in this encounter
--- OUTSIDE RECORDS SUMMARY | 2024-05-30 08:36 | XMS_ITS | Encounter Summary ---
[facility] Address [address] [place] [address] Care Team Providers Care Riffler Tender Name Role Phone Unavailable Primary Care Provider Unavailabl e Reason for Visit * (Emergency) - Closed Specialty Diagnoses / Procedures Referred By Contac t Referred To Contact Radiology Diagnoses Hematuria, unspecified type Procedures XR abdomen Fabiola Drummond MD [address] [place] [phone] Phone: tel: fax: Referral ID Status Reason Start Date Expiration Date Visits Re quested Visits Authorized [id number] Closed 09/25/2018 09/25/2019 1 1 Encounter Details Date Type Department Care Team (Latest Contact Info) Description 09/25/2018 1:45 PM EDT - 09/25/2018 11:59 PM EDT Hospital Encounter [facility] [address] [place] [address] Discharge Disposition: Home or Self Care Social History Tobacco Use Types Packs/Day Years Used Date Smoking Tobacco: Some Days Cigarettes 2 10 Alcohol Use Standard Drinks/Week Comments Yes 0 (1 standard drink = 0.6 oz pur e alcohol) Comments No Sex and Gender Information Value [...] 1 capsule by mouth Daily. 02/16/20 23 fenofibrate (TRICOR) 145 MG tablet Take 160 mg by mouth Every Other Day. 02/16/20 23 gabapentin (NEURONTIN) 300 MG capsule BID 0 12/23/2015 02/16/20 23 HYDROcodone-acetami nophen (NORCO) 5-325 MG per tablet Take 1 tablet by mouth Every 6 (Six) Hours As Needed for Moderate Pain . 12 tablet 09/01/2018 02/16/20 23 traMADol (ULTRAM) 50 MG tablet Take 1 tablet by mouth Every 6 (Six) Hours As Needed for Moderate Pain or Severe Pain . 10 tablet 09/22/2018 11/03/19 19 documented as of this encounter Plan of Treatment Not on file documented as of this encounter Procedures Procedure Name Priority Date/Time Associated Diagnosis Comments XR ABDOMEN KUB STAT 09/25/2018 2:20 PM EDT Hematuria, unspecified type documented in this encounter Results * XR abdomen kub (09/25/2018 2:20 PM EDT) Anatomical Region Laterality Modality Body, Abdomen N/A Radiographic Kim ging 09/25/2018 2:29 PM EDT Impressions 09/25/2018 2:40 PM EDT Nonspecific abdomen. This report was finalized on 09/25/2018 2:40 PM by Surendra Pike MD. Narrative 09/25/2018 2:40 PM EDT ABDOMEN INDICATION: Hematuria. FINDINGS: 2 views of the abdomen demonstrate minimal stool burden. Nonspecific nonobstructive bowel gas pattern. No calcified renal stone. Minimal pelvic calcifications likely represent phleboliths. No obvious ureteral stone. Pelvic calcifications likely represent phleboliths. Of note, there were no renal stones on a recent CT from 07/21/2018. Procedure Note Janak Pike MD - 09/25/2018 ABDOMEN INDICATION: Hematuria. FINDINGS: 2 views of the abdomen demonstrate minimal stool burden. Nonspecific nonobstructive bowel gas pattern. No calcified renal stone. Minimal pelvic calcifications likely represent phleboliths. No obvious ureteral stone. Pelvic calcifications likely represent phleboliths. Of note, there were no renal stones on a recent CT from 07/21/2018. IMPRESSION: Nonspecific abdomen. This report was finalized on 09/25/2018 2:40 PM by Surendra Pike MD. us Fabiola Guzman MD IMG DIAGNOSTIC IMAGING ORDER BERTIN Final Result documented in this encounter Visit Diagnoses Not on filedocumented in this encounter
--- OUTSIDE RECORDS SUMMARY | 2024-05-30 08:36 | XMS_ITS | Encounter Summary ---
[facility] Address [address] [place] [address] Care Team Providers Care Cable Testers Helper Name Role Phone Unavailable Primary Care Provider Unavailabl e Encounter Details Date Type Department Care Team (Late st Contact Info) Description 12/12/2018 11:15 AM EDT Consult [facility] HEMATOLOGY & ONCOLOGY [address] [facility] [address] [facility] [address] [place] [address] Mare Johnston MD [address] [facility] [address] [place] [address] Anemia due to chronic kidney disease, unspecified CKD stage (Primary Dx) Social History Tobacco Use Types [...] Sign Reading Time Taken Comments Blood Pressure 136/73 12/12/2018 11:16 AM EDT Pulse 94 12/12/2018 11:16 AM EDT Temperature 36.6 ??C (97.8 ??F) 12/12/2018 11:16 AM E DT Respiratory Rate 17 12/12/2018 11:16 AM EDT Oxygen Saturation - - Inhaled Oxygen Concentration - - Weight 96.2 kg (212 lb) 12/12/2018 11:16 AM EDT Height 165.1 cm (5' 5 ) 12/12/2018 11:16 AM EDT Body Mass Index 35.28 12/12/2018 11:16 AM EDT documented in this encounter Progress Notes * Mare Johnston MD - 12/12/2018 11:15 AM EDT Subjective PROBLEM LIST: 1. Anemia 2. Hypertension 3. Diabetes 4. CKD 5. Depression 6. Hyperlipidemia 7. Diabetic neuropathy CHIEF COMPLAINT: anemia HISTORY OF PRESENT ILLNESS: The patient is a 28 y.o. year old female, referred for evaluation of anemia. She says that she has been aware of the anemia for the past 6 months or so. She has a history of chronic kidney disease related to her diabetes. She is going to be seen at a kidney transplant clinic early next month. Currently she is being followed by nephrology every 3 months. She has not seen any blood in her bowel movements. She has regular menstrual bleeding that last 5 to 7 days. She has a rare bloody nose. Energy level is baseline. REVIEW OF SYSTEMS: A 14 point review of systems was performed and is negative except as noted above. Past 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: Diagnosis Date ??? Allergic ??? Anxiety ??? Arthritis ??? Chronic constipation ??? Depression ??? Diabetes mellitus (CMS/HCC) ??? Excessive thirst ??? H/O mammogram 2014 ??? Headache ??? Hot skin ??? Hyperlipidemia ??? Hypertension ??? Injury of back ??? Leg cramps ??? Pap smear for cervical cancer screening 11/08/2015 ??? Sinusitis ??? Urinary tract infection Current Outpatient Medications on File Prior to Visit Medication Sig Dispense Refill ??? amLODIPine-benazepril (LOTREL 5-10) 5-10 MG per capsule Take 1 capsule by mouth Daily. ??? atorvastatin (LIPITOR) 40 MG tablet TAKE 1 TABLET EVERY DAY 0 ??? carvedilol (COREG) 6.25 MG tablet Take 6.25 mg by mouth 2 (Two) Times a Day With Meals. ??? cyclobenzaprine (FLEXERIL) 5 MG tablet Take 1 tablet by mouth 3 (Three) Times a Day As Needed for Muscle Spasms. 12 tablet 0 ??? fenofibrate (TRICOR) 145 MG tablet Take 160 mg by mouth Every Other Day. ??? gabapentin (NEURONTIN) 300 MG capsule BID 0 ??? HYDROcodone-acetaminophen (NORCO) 5-325 MG per tablet Take 1 tablet by mouth Every 6 (Six) Hours As Needed for Moderate Pain . 12 tablet 0 ??? insulin lispro (ADMELOG) 100 UNIT/ML injection Inject under the skin into the appropriate area as directed 3 (Three) Times a Day Before Meals. Uses Insulin pump ??? lisinopril (PRINIVIL,ZESTRIL) 10 MG tablet Takes 20mg daily 0 ??? naproxen (NAPROSYN) 500 MG tablet Take 1 tablet by mouth 2 (Two) Times a Day With Meals. 20 tablet 0 ??? ondansetron ODT (ZOFRAN-ODT) 4 MG disintegrating tablet Take 1 tablet by mouth Every 6 (Six) Hours As Needed for Nausea or Vomiting. 20 tablet 0 ??? sodium bicarbonate 650 MG tablet Take 2 tablets by mouth 2 (Two) Times a Day. 240 tablet 1 ??? traMADol (ULTRAM) 50 MG tablet Take 1 tablet by mouth Every 6 (Six) Hours As Needed for Moderate Pain or Severe Pain . 6 tablet 0 No current facility-administered medications on file prior to visit. No Known Allergies Past Surgical History: Procedure Laterality Date ??? SECTION 10/17/2012 ??? SECTION ??? INDUCED 2006 [facility] Social History Socioeconomic History ??? Marital status: [...] Surgical Social History Narrative Merged History Encounter History reviewed. No pertinent family history. Objective BP 136/73 Pulse 94 Temp 97.8 ??F (36.6 ??C) (Temporal) Resp 17 Ht 165.1 cm (65 ) Wt 96.2 kg (212 lb) BMI 35.28 kg/m?? Performance Status: 0 General: well appearing female in no acute distress Neuro: alert and oriented HEENT: sclera anicteric, oropharynx clear Lymphatics: no cervical, supraclavicular, or axillary adenopathy Cardiovascular: regular rate and rhythm, no murmurs Lungs: clear to auscultation bilaterally Abdomen: soft, nontender, nondistended. No palpable organomegaly Extremeties: no lower extremity edema Skin: no rashes, lesions, bruising, or petechiae Psych: mood and affect appropriate Labs: 10/26/18 - retic 2.9%, hapto 147, TSH 3.1, folate 5.7, b12 373, ldh 153, iron 68, tibc 381, iron sat 18 09/25/18 - wbc 10.51, hgb 11.4, plt 237, MCV 88.5 Cr 3.14 Assessment/Plan Crystal Archer is a 28 y.o. year old female referred for evaluation of anemia. She has chronic kidney disease, and no evidence of iron, b12, or folate deficiency. There is no laboratory evidence of hemolysis. This is most likely anemia of chronic kidney disease. At this point it is fairly mild and should not require intervention, but at some point she may need to begin procrit. I will defer to her medical billing and coding specialist regarding the timing of initiating Procrit treatment. I am happy to be involved if needed, or if it allows her to receive her injections closer to home. For now I will not schedule any hematology follow-up. Mare Johnston MD 12/12/2018 documented in this encounter Plan of Treatment Not on file documented as of this encounter Visit Diagnoses Diagnosis Anemia due to chronic kidney disease, unspecified CKD stage- Primary documented in this encounter
--- OUTSIDE RECORDS SUMMARY | 2024-05-30 08:36 | XMS_ITS | Encounter Summary ---
Author Organization [facility] Address [address] [place] [address] Care Team Providers Care Zoo Veterinarian Name Role Phone Unavailable Primary Care Provider Unavailabl e Reason for Visit * (Emergency) - Closed Specialty Diagnoses / Procedures Referred By Contac t Referred To Contact Radiology Diagnoses Chest pain, unspecified type Procedures XR Chest 1 View Fabiola Guzman MD [address] [place] [phone] Phone: tel: fax: Referral ID Status Reason Start Date Expiration Date Visits Re quested Visits Authorized [id number] Closed 08/28/2018 08/28/2019 1 1 Encounter Details Date Type Department Care Team (Latest Contact Info) Description 08/28/2018 1:42 PM EST - 08/28/2018 11:[address] [facility] Hospital Encounter [facility] [address] [place] [address] Discharge Disposition: Home or Self [...] TAKE 1 TABLET EVERY DAY 0 12/23/2015 insulin lispro (humaLOG) 100 UNIT/ML injection Inject [...] Times a Day. 240 tablet 1 06/14/2018 fenofibrate (TRICOR) 145 MG tablet Take 160 mg by mouth Every Other Day. 02/16/20 23 gabapentin (NEURONTIN) 300 MG capsule BID 0 12/23/2015 02/16/20 23 documented as of this encounter Plan of Treatment Not on file documented as of this encounter Procedures Procedure Name Priority Date/Time Associated Diagnosis Comments XR CHEST 1 VW STAT 08/28/2018 1:56 PM EST Chest pain, unspecified type documented in this encounter Results * XR Chest 1 View (08/28/2018 1:56 PM EST) Anatomical Region Laterality Modality Body N/A Radiographic Kim ging 08/28/2018 2:26 PM EST Impressions 08/28/2018 2:26 PM EST No acute process. This report was finalized on 08/28/2018 2:26 PM by Brittny Lacey M.D.. Narrative 08/28/2018 2:26 PM EST PROCEDURE: XR CHEST 1 VW-, XR RIBS LEFT W PA CHEST- HISTORY: chest pain; R07.9-Chest pain, unspecified FINDINGS: CHEST: 2 views of the chest demonstrates a normal heart size and mediastinum. The lungs are clear. There is no pneumothorax. RIBS: 3 views of the ribs demonstrate no displaced rib fracture. Procedure Note Brittny Lacey MD - 08/28/2018 PROCEDURE: XR CHEST 1 VW-, XR RIBS LEFT W PA CHEST- HISTORY: chest pain; R07.9-Chest pain, unspecified FINDINGS: CHEST: 2 views of the chest demonstrates a normal heart size and mediastinum. The lungs are clear. There is no pneumothorax. RIBS: 3 views of the ribs demonstrate no displaced rib fracture. IMPRESSION: No acute process. This report was finalized on 08/28/2018 2:26 PM by Brittny Lacey M.D.. us Fabiola Guzman MD IMG DIAGNOSTIC IMAGING ORDER BERTIN Final Result documented in this encounter Visit Diagnoses Not on filedocumented in this encounter
--- OUTSIDE RECORDS SUMMARY | 2024-05-30 08:36 | XMS_ITS | Encounter Summary ---
[facility] Address [address] [id number] Care Team Providers Care Director Of Knowledge Management Name Role Phone Unavailable Primary Care Provider Unavailabl e Reason for Visit * Reason Comments Arm Pain Encounter Details Date Type Department Care Team (Late st Contact Info) Description 09/09/2018 11:51 PM EST - 09/10/2018 12:50 AM EST Emergency EMERGENCY DEPARTMENT [address] [place] [phone] Dominik Rizo MD [address] [place] [address] Arm fracture, left, sequela (Primary Dx) Discharge Disposition: Home or Self [...] Sign Reading Time Taken Comments Blood Pressure 123/96 09/09/2018 11:43 PM EST Pulse 91 09/09/2018 11:43 PM EST Temperature 37.4 ??C (99.3 ??F) 09/09/2018 11:[address] Respiratory Rate 18 09/09/2018 11:43 PM EST Oxygen Saturation 95% 09/09/2018 11:43 PM EST Inhaled Oxygen Concentration - - Weight 96.6 kg (213 lb) 09/09/2018 11:43 PM EST Height 165.1 cm (5' 5 ) 09/09/2018 11:43 PM EST Body Mass Index 35.45 09/09/2018 11:43 PM EST documented in this encounter Discharge Instructions * Attachments The following attachments cannot be sent through Care Everywhere. * Cast or Splint Care Adult [id number] (Congolese) documented in this encounter Medications at Time [...] Pain . 12 tablet 09/01/2018 02/16/20 23 documented as of this encounter ED Notes * Dominik Rizo MD - 09/10/2018 12:49 AM ESTAssociated Order(s): Splint - Cast - Strapping Subjective 28-year-old female who presented to this emergency department 8 days ago and diagnosed with an ulnar fracture who presents tonight requesting a cast to be placed again as she cut the last went off. Since her last visit here the patient has been to the orthopedist with a placed a cast on her and it made her uncomfortable so she cut it off herself. States she then went to the [place] emergency department 2 days ago where they put a splint on her that she thought was too flimsy so she took it off. She states her arm was hurting her today so she came to the emergency department [facility] hoping to have another cast or splint placed. Review of Systems All other systems reviewed and are negative. [...] Laterality Date ??? SECTION 10/17/2012 ??? SECTION History reviewed. No pertinent family history. Social [...] Substance and Sexual Activity ??? Alcohol use: Yes ??? Drug use: No ??? Sexual activity: Yes control/protection: Pill Comment: ran out 2 1/12 months ago Social History Narrative Merged History Encounter Objective Physical Exam Nursing note and vitals reviewed. GEN: No acute distress Head: Normocephalic, atraumatic Eyes: Pupils equal round reactive to light ENT: Posterior pharynx normal in appearance, oral mucosa is moist Chest: Nontender to palpation Cardiovascular: Regular rate Lungs: Clear to auscultation bilaterally Abdomen: Soft, nontender, nondistended, no peritoneal signs Extremities: Left arm has tenderness and swelling along the midshaft of the ulna. Strong radial pulse. No bruising or ecchymosis. Neuro: GCS 15 Psych: Mood and affect are appropriate Splint - Cast - Strapping Date/Time: 09/10/2018 12:52 AM Performed by: Dominik Rizo MD Authorized by: Dominik Rizo MD Consent: Consent obtained: Verbal Consent given by: Patient Pre-procedure details: Sensation: Normal Procedure details: Laterality: Left Location: Arm Arm: L lower arm Splint type: Long arm Supplies: Elastic bandage and Ortho-Glass Post-procedure details: Pain: Unchanged Sensation: Normal Patient tolerance of procedure: Tolerated well, no immediate complications ED Course MDM Number of Diagnoses or Management Options Arm fracture, left, sequela: Diagnosis management comments: Placed a new splint on patient's arm and requested that she not remove it this time. Follow-up with orthopedics as planned. Amount and/or Complexity of Data Reviewed Decide to obtain previous medical records or to obtain history from someone other than the patient:yes Review and summarize past medical records: yes Final diagnoses: Arm fracture, left, sequela Dominik Rizo MD 09/10/18 0053 documented in this encounter Plan of Treatment Not on file documented as of this encounter Procedures Procedure Name Priority Date/Time Associated Diagnosis Comments [place] APPLICATION LONG ARM SPLINT SHOULDER HAND Routine 09/10/2018 12:49 AM EST documented in this encounter Results * [place] APPLICATION LONG ARM SPLINT SHOULDER HAND (09/10/2018 12:49 AM EST) Narrative Dominik Rizo MD - 09/10/2018 12:49 AM EST Dominik Rizo MD ? 09/10/2018 12:53 AM Splint - Cast - Strapping Date/Time: 09/10/2018 12:52 AM Performed by: Dominik Rizo MD Authorized by: Dominik Rizo MD Consent: ??Consent obtained: ??Verbal ??Consent given by: ??Patient Pre-procedure details: ??Sensation: ??Normal Procedure details: ??Laterality: ??Left ??Location: ??Arm ??Arm: ??L lower arm ??Splint type: ??Long arm ??Supplies: ??Elastic bandage and Ortho-Glass Post-procedure details: ??Pain: ??Unchanged ??Sensation: ??Normal ??Patient tolerance of procedure: ??Tolerated well, no immediate complications Dominik Rizo MD PROCEDURE/MINOR SURGICAL ORDER BERTIN Final Result documented in this encounter Visit Diagnoses Diagnosis Arm fracture, left, sequela- Primary documented in this encounter
--- OUTSIDE RECORDS SUMMARY | 2024-05-30 08:36 | XMS_ITS | Encounter Summary ---
Author Organization [facility] Address [address] [place] [address] Care Team Providers Care House Moving Supervisor Name Role Phone Unavailable Primary Care Provider Unavailabl e Reason for Visit * Reason Comments Rash Diarrhea Encounter Details Date Type Department Care Team (Late st Contact Info) Description 12/24/2018 10:45 PM EDT - 12/25/2018 1:07 AM EDT Emergency [facility] EMERGENCY DEPARTMENT [address] [place] [address] Phill Gama, DO [address] [place], [place] [id number] Urinary tract infection without hematuria, site unspecified (Primary Dx); 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; Chronic kidney disease, stage IV (severe); Tinea corporis Discharge Disposition: Home or Self Care Social [...] Sign Reading Time Taken Comments Blood Pressure 118/75 12/25/2018 12:08 AM EDT Pulse 89 12/25/2018 1:03 AM EDT Temperature 36.4 ??C (97.6 ??F) 12/25/2018 1:03 AM ED T Respiratory Rate 18 12/25/2018 1:03 AM EDT Oxygen Saturation 95% 12/25/2018 12:08 AM EDT Inhaled Oxygen Concentration - - Weight 101 kg (221 lb 9.6 oz) 12/24/2018 10:23 P M EDT Height 165.1 cm (5' 5 ) 12/24/2018 10:23 PM EDT Body Mass Index 36.88 12/24/2018 10:23 PM EDT documented in this encounter Discharge Instructions * Discharge Instructions* Tiago Dinh PA-C - 12/25/2018 12:52 AM EDT Continue monitoring your blood glucose levels closely. Contact your primary care provider and/or trimming assembler tomorrow to discuss your blood glucose. Recheck in 1 to 2 days with your primary care provider. Increase your fluid intake. Return to the emergency department immediately for any change or worsening of symptoms. * Attachments The following attachments cannot be sent through Care Everywhere. * Chronic Kidney Disease Adult (Russian) * Insulin Treatment for Diabetes Mellitus (Russian) documented in this encounter Medications at Time [...] 06/14/2018 fluconazole (DIFLUCAN) 150 MG tablet Take 0.5 tablets by mouth 1 (One) Time for 1 dose. 1 tablet 12/25/2018 12/26/19 19 amLODIPine-benazepr il (LOTREL 5-10) 5-10 MG [...] as of this encounter ED Notes * Tiago Dinh PA-C - 12/24/2018 10:54 PM EDT Subjective 28-year-old insulin-dependent diabetic with history of stage IV kidney disease, presents to emergency department with rash x1 week to crural area and lower extremities, and nausea vomiting and diarrhea today with elevated blood glucose. She is a type I diabetic with history of DKA in the past. She was seen by her primary care provider few days ago for rash, was diagnosed with tinea, prescribed Lotrimin. Advised to return to emergency department for evaluation if any nausea vomiting and/or diarrhea develop. She states she has had some slight orthostasis today with lower abdominal cramping as well. Estimates urinating 20- 30 times a day, diarrheal stool x30+, and emesis x5-6 today. Primary care provider is Dr. Guzman. She denies drug allergies. Review of Systems Constitutional: Positive for activity change, appetite change and chills. Respiratory: Positive for cough, chest tightness and shortness of breath. Cardiovascular: Positive for chest pain. All other systems reviewed and are [...] 10/17/2012 ??? SECTION ??? INDUCED 2006 [facility] History reviewed. No pertinent family [...] clear and moist. No oropharyngeal exudate. Eyes: Conjunctivae and EOM are normal. Pupils are equal, round, and reactive to light. Right eye exhibits no discharge. Left eye exhibits no discharge. No scleral icterus. Neck: Normal range of motion. Neck supple. No JVD present. No tracheal deviation present. No thyromegaly present. Cardiovascular: Normal rate, regular rhythm, normal heart sounds and intact distal pulses. Exam reveals no friction rub. No murmur heard. Pulmonary/Chest: Effort normal and breath sounds normal. No stridor. No respiratory distress. She has no wheezes. She has no rales. She exhibits no tenderness. Abdominal: Soft. She exhibits no distension. There is no tenderness. There is no rebound and no guarding. Musculoskeletal: Normal range of motion. She exhibits no edema, tenderness or deformity. Neurological: She is alert and oriented to person, place, and time. No cranial nerve deficit. She exhibits normal muscle tone. Coordination normal. Skin: Skin is warm and dry. No rash noted. She is not diaphoretic. No erythema. No pallor. Tineaform rash to groin inner thighs and lower extremities Psychiatric: She has a normal mood and affect. Her behavior is normal. Judgment and thought contentnormal. Nursing note and vitals reviewed. Procedures ED Course ED Course as of Dec 25 010 Sun Dec 24, 2018 2358 Glucose: (!) 311 [TG] 2359 BUN: (!) 45 [TG] 2359 Creatinine: (!) 3.30 [TG] 2359 CO2: (!) 25.0 [TG] 2359 Anion Gap: 16.0 [TG] 2359 Nitrite, UA: (!) Positive [TG] Mon Dec 25, 2018 0000 Nitrite, UA: (!) Positive [TG] 0000 WBC, UA: (!) 0-2 [TG] ED Course User Index [TG] Tiago Dinh PA-C Recent Results (from the past 24 hour(s)) Urinalysis With Culture If Indicated - Urine, Clean Catch Collection Time: 12/24/18 10:55 PM Result Value Ref Range Color, UA Dark Yellow (A) Yellow, Straw Appearance, UA Clear Clear pH, UA 7.0 5.0 - 8.0 [address] [place], UA 1.011 1.005 - 1.030 Glucose, UA 250 mg/dL (1+) (A) Negative Ketones, UA Negative Negative Bilirubin, UA Negative Negative Blood, UA Negative Negative Protein, UA 100 mg/dL (2+) (A) Negative Leuk Esterase, UA Negative Negative Nitrite, UA Positive (A) Negative Urobilinogen, UA 1.0 E.U./dL 0.2 - 1.0 E.U./dL Urinalysis, Microscopic Only - Urine, Clean Catch Collection Time: 12/24/18 10:55 PM Result Value Ref Range RBC, UA None Seen None Seen /HPF WBC, UA 0-2 (A) None Seen /HPF Bacteria, UA Trace (A) None Seen /HPF Squamous Epithelial Cells, UA 0-2 None Seen, 0-2 /HPF Hyaline Casts, UA None Seen None Seen /LPF Methodology Manual Light Microscopy Comprehensive Metabolic Panel Collection Time: 12/24/18 11:26 PM Result Value Ref Range Glucose 311 (H) 74 - 98 mg/dL BUN 45 (H) 7 - 20 mg/dL Creatinine 3.30 (H) 0.60 - 1.30 mg/dL Sodium 137 137 - 145 mmol/L Potassium 5.0 3.5 - 5.1 mmol/L Chloride 101 98 - 107 mmol/L CO2 25.0 (L) 26.0 - 30.0 mmol/L Calcium 8.1 (L) 8.4 - 10.2 mg/dL Total Protein 6.7 6.3 - 8.2 g/dL Albumin 3.80 3.50 - 5.00 g/dL ALT (SGPT) 24 13 - 69 U/L AST (SGOT) 14 (L) 15 - 46 U/L Alkaline Phosphatase 77 38 - 126 U/L Total Bilirubin 0.3 0.2 - 1.3 mg/dL eGFR Non Amer 17 (L) >60 mL/min/1.73 Globulin 2.9 gm/dL A/G Ratio 1.3 1.0 - 2.0 g/dL BUN/Creatinine Ratio 13.6 7.1 - 23.5 Anion Gap 16.0 10.0 - 20.0 mmol/L Blood Gas, Venous Collection Time: 12/24/18 11:26 PM Result Value Ref Range Site OTHER pH, Venous 7.376 7.320 - 7.420 pH Units pCO2, Venous 44.8 40.0 - 50.0 mm Hg pO2, Venous 23.3 (L) 30.0 - 50.0 mm Hg HCO3, Venous 26.3 22.0 - 28.0 mmol/L Base Excess, Venous 0.8 0.0 - 2.0 mmol/L O2 Saturation, Venous 38.9 (L) 45.0 - 75.0 % Barometric Pressure for Blood Gas 733 mmHg Modality Room Air FIO2 21 % Ventilator Mode NA Lactic Acid, Plasma Collection Time: 12/24/18 11:27 PM Result Value Ref Range Lactate 1.3 0.5 - 2.0 mmol/L CBC Auto Differential Collection Time: 12/24/18 11:27 PM Result Value Ref Range WBC 9.17 3.40 - 10.80 10*3/mm3 RBC 3.57 (L) 3.77 - 5.28 10*6/mm3 Hemoglobin 10.6 (L) 12.0 - 15.9 g/dL Hematocrit 31.7 (L) 34.0 - 46.6 % MCV 88.8 79.0 - 97.0 fL MCH 29.7 26.6 - 33.0 pg MCHC 33.4 31.5 - 35.7 g/dL RDW 12.5 12.3 - 15.4 % RDW-SD 40.8 37.0 - 54.0 fl MPV 13.1 (H) 6.0 - 12.0 fL Platelets 230 140 - 450 10*3/mm3 Neutrophil % 55.2 42.7 - 76.0 % Lymphocyte % 34.8 19.6 - 45.3 % Monocyte % 6.0 5.0 - 12.0 % Eosinophil % 3.2 0.3 - 6.2 % Basophil % 0.5 0.0 - 1.5 % Immature Grans % 0.3 0.0 - 0.5 % Neutrophils, Absolute 5.06 1.70 - 7.00 10*3/mm3 Lymphocytes, Absolute 3.19 (H) 0.70 - 3.10 10*3/mm3 Monocytes, Absolute 0.55 0.10 - 0.90 10*3/mm3 Eosinophils, Absolute 0.29 0.00 - 0.40 10*3/mm3 Basophils, Absolute 0.05 0.00 - 0.20 10*3/mm3 Immature Grans, Absolute 0.03 0.00 - 0.05 10*3/mm3 nRBC 0.0 0.0 - 0.2 /100 WBC Note: In addition to lab results from this visit, the labs listed above may include labs taken at another facility or during a different encounter within the last 24 hours. Please correlate lab timeswith ED admission and discharge times for further clarification of the services performed during this visit. No orders to display Vitals: 12/24/18 2223 12/25/18 0008 BP: 165/96 118/75 BP Location: Right arm Patient Position: Sitting Pulse: 98 Resp: 18 Temp: 97.6 ??F (36.4 ??C) TempSrc: Oral SpO2: 92% 95% Weight: 101 kg (221 lb 9.6 oz) Height: 165.1 cm (65 ) Medications sodium chloride 0.9 % flush 10 mL (not administered) sodium chloride 0.9 % bolus 1,000 mL (1,000 mL Intravenous New Bag 12/24/18 4285) cefTRIAXone (ROCEPHIN) IVPB 1 g/50ml dextrose (premix) (0 g Intravenous Stopped 12/25/18 0038) ECG/EMG Results (last 24 hours) No results found for the last 24 hours. 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 Phill Gama 12/25/2018 2:22 AM documented in this encounter Plan of Treatment Not on file documented as of this encounter Procedures Procedure Name Priority Date/Time Associated Diagnosis Comments CBC WITH AUTO DIFFERENTIAL STAT 12/24/2018 11:27 PM EDT CBC AND DIFFERENTIAL STAT 12/24/2018 11:27 PM EDT LACTIC ACID, PLASMA STAT 12/24/2018 1 1:27 PM EDT BLOOD GAS, VENOUS STAT 12/24/2018 11: 26 PM EDT COMPREHENSIVE METABOLIC PANEL STAT 12/24/2018 11:26 PM EDT URINALYSIS, MICROSCOPIC ONLY STAT 12/24/2018 10:55 PM EDT URINALYSIS W/ CULTURE IF INDICATED STAT 12/24/2018 10:55 PM EDT URINE CULTURE STAT 12/24/2018 10:55 PM EDT documented in this encounter Results * (ABNORMAL) CBC Auto Differential (12/24/2018 11:27 PM EDT) WBC 9.17 3.40 - 10.80 10*3/mm3 12/24/2018 11:34 PM EDT [facility] RBC 3.57(L) 3.77 - 5.28 10*6/mm3 12/24/2018 11:34 PM EDT [facility] Hemoglobin 10.6(L) 12.0 - 15.9 g/dL 12/24/2018 11:34 PM EDT [facility] Hematocrit 31.7(L) 34.0 - 46.6 % 12/24/2018 11:34 PM EDT [facility] MCV 88.8 79.0 - 97.0 fL 12/24/2018 11:34 PM EDT [facility] MCH 29.7 26.6 - 33.0 pg 12/[facility]/2018 [facility] MCHC 33.4 31.5 - 35.7 g/dL 12/24/2018 [facility] RDW 12.5 12.3 - 15.4 % 12/24/2018 11:34 PM EDT [facility] RDW-SD 40.8 37.0 - 54.0 fl 12/24/2018 11:34 PM [facility] MPV 13.1(H) 6.0 - 12.0 fL 12/24/2018 11:34 PM EDT [facility] Platelets 230 140 - 450 10*3/mm3 12/24/2018 11:34 PM [facility] Neutrophil % 55.2 42.7 - 76.0 % 12/24/2018 11:34 PM EDT [facility] Lymphocyte % 34.8 19.6 - 45.3 % 12/24/2018 11:34 PM [facility] Monocyte % 6.0 5.0 - 12.0 % 12/24/2018 11:[facility] Eosinophil % 3.2 0.3 - 6.2 % 12/24/2018 11:[facility] Basophil % 0.5 0.0 - 1.5 % 12/24/2018 11:34 PM EDT [facility] Immature Grans % 0.3 0.0 - 0.5 % 12/24/2018 11:34 PM EDT [facility] Neutrophils, Absolute 5.06 1.70 - 7.00 10*3/mm3 12/24/2018 11:34 PM EDT [facility] Lymphocytes, Absolute 3.19(H) 0.70 - 3.10 10*3/mm3 12/24/2018 11:34 PM EDT [facility] Monocytes, Absolute 0.55 0.10 - 0.90 10*3/mm3 12/24/2018 11:34 PM EDT [facility] Eosinophils, Absolute 0.29 0.00 - 0.40 10*3/mm3 12/24/2018 11:34 PM EDT [facility] Basophils, Absolute 0.05 0.00 - 0.20 10*3/mm3 12/24/2018 11:34 PM EDT [facility] Immature Grans, Absolute 0.03 0.00 - 0.05 10*3/mm3 12/24/2018 11:34 PM EDT [facility] nRBC 0.0 0.0 - 0.2 /100 WBC 12/24/2018 11:34 PM EDT [facility] Blood Venipuncture / Unknown 12/24/2018 11:27 PM EDT 12/24/2018 11:31 PM EDT Tiago BurakINNJOY Travel PA-C LAB BLOOD ORDERABLES Fin al Result [facility]
[address] [place] [address], * Lactic Acid, Plasma (12/24/2018 11:27 PM EDT) [facility] Lactate 1.3 0.5 - 2.0 mmol/L 12/24/2018 11:45 PM EDT [facility] Blood Venipuncture / Unknown 12/24/2018 11:27 PM EDT 12/24/2018 11:31 PM EDT [employer] PA-C LAB BLOOD ORDERABLES Fin al Result [facility]
[address] [place] [address], [place] [phone] * (ABNORMAL) Blood Gas, Venous (12/24/2018 11:26 PM EDT) [facility] Site OTHER 12/24/2018 11:26 PM EDT [facility] THERAPY pH, Venous 7.376 7.320 - 7.420 pH Units 12/24/2018 11:26 PM EDT [facility]IR[facility] THERAPY pCO2, Venous 44.8 40.0 - 50.0 mm Hg 12/24/2018 11:26 PM EDT [facility] RESPIR[facility]ORY THERAPY pO2, Venous 23.3(L) 30.0 - 50.0 mm Hg 12/24/2018 11:26 PM EDT [facility] THERAPY Comment:84 Value below refer ence range HCO3, Venous 26.3 22.0 - 28.0 mmol/L 12/24/2018 11:26 PM EDT [facility] RES[facility] THERAPY Base Excess, Venous 0.8 0.0 - 2.0 mmol/L 12/24/2018 11:26 PM EDT [facility]IR[facility] THERAPY O2 Saturation, Venous 38.9(L) 45.0 - 75.0 % 12/24/2018 11:26 PM EDT [facility] THERAPY Comment:84 Value below refer ence range Barometric Pressure for Blood Gas 733 mmHg 12/24/2018 11:26 PM EDT [facility] THERAPY Modality Room Air 12/24/2018 11:26 PM EDT [facility] THERAPY FIO2 21 % 12/24/2018 11:26 PM EDT [facility] Ventilator Mode NA 9 11:26 PM EDT [facility]IR[facility] THERAPY Comment:Meter: [id number] Packaging Operator: [id number] Venous Blood 12/24/2018 11:2 6 PM EDT 12/24/2018 11:26 PM EDT us Phill Gama DO LAB BLOOD ORDERABLES Final Res ult [facility]
[address] [place] [address], * (ABNORMAL) Comprehensive Metabolic Panel (12/24/2018 11:26 PM EDT) Glucose 311(H) 74 - 98 mg/dL 12/24/2018 11:46 PM EDT [facility] Comment:Glucose >180, Hemogl obin A1C recommended. BUN 45(H) 7 - 20 mg/dL 12/24/2018 11:46 PM [facility] Creatinine 3.30(H) 0.60 - 1.30 mg/dL 12/24/2018 11:46 PM [facility] Sodium 137 137 - 145 mmol/L 12/24/2018 11:46 PM [facility] Potassium 5.0 3.5 - 5.1 mmol/L 12/24/2018 11:46 PM [facility] Chloride 101 98 - 107 mmol/L 12/24/2018 11:46 PM [facility] CO2 25.0(L) 26.0 - 30.0 mmol/L 12/24/2018 11:46 PM [facility] Calcium 8.1(L) 8.4 - 10.2 mg/dL 12/24/2018 11:46 PM [facility] Total Protein 6.7 6.3 - 8.2 g/dL 12/24/2018 11:46 PM [facility] Albumin 3.80 3.50 - 5.00 g/dL 12/24/2018 11:46 PM [facility] ALT (SGPT) 24 13 - 69 U/L 12/24/2018 11:46 PM [facility] AST (SGOT) 14(L) 15 - 46 U/L 12/24/2018 11:46 PM [facility] Alkaline Phosphatase 77 38 - 126 U/L 12/24/2018 11:46 PM [facility] Total Bilirubin 0.3 0.2 - 1.3 mg/dL 12/24/2018 11:46 PM [facility] eGFR Non Amer 17(L) >60 mL/min/1.7 3 12/24/2018 11:46 PM [facility] Globulin 2.9 gm/dL 12/24/2018 11:46 PM [facility] A/G Ratio 1.3 1.0 - 2.0 g/dL 12/24/2018 11:46 PM EDT [facility] BUN/Creatinine Ratio 13.6 7.1 - 23.5 12/24/2018 11:46 PM EDT [facility] Anion Gap 16.0 10.0 - 20.0 mmol/L 12/24/2018 11:46 PM EDT [facility] Blood Venipuncture / Unknown 12/24/2018 11:26 PM EDT 12/24/2018 11:31 PM EDT Narrative [facility] - 12/24/2018 11:46 PM EDT GFR Normal >60 Chronic Kidney Disease <60 Kidney Failure <15 Tiago Dinh PA-C LAB BLOOD ORDERABLES Fin al Result [facility]
[address] [place] [id number], * Urine Culture - Urine, Urine, Clean Catch (12/24/2018 10:55 PM EDT) Urine Culture No growth KIRA 12/26/2018 5:43 AM EDT [facility] Urine Urine specimen collection, clean catch / Unknown Collection / Unknown 12/24/2018 10:55 PM EDT 12/24/2018 10:57 PM EDT us Tiago Dinh PA-C MICROBIOLOGY - GENERAL O RDERABLES Final Result [facility]
[address] [place] [id number], [place] [phone] * (ABNORMAL) Urinalysis, Microscopic Only - Urine, Clean Catch (12/24/2018 10:55 PM EDT) RBC, UA None Seen None Seen /HPF 12/24/2018 11:19 PM EDT [facility] WBC, UA 0-2(A) None Seen /HPF 12/24/2018 11:19 PM EDT [facility] Bacteria, UA Trace(A) None Seen /HPF 12/24/2018 11:19 PM EDT [facility] Squamous Epithelial Cells, UA 0-2 None Seen, 0-2 /HPF 12/24/2018 11:19 PM EDT [facility] Hyaline Casts, UA None Seen None Seen /LPF 12/24/2018 11:19 PM EDT [facility] Methodology Manual Light Microscopy 12/24/2018 11:19 PM EDT [facility] Urine Urine specimen collection, clean catch / Unknown Collection / Unknown 12/24/2018 10:55 PM EDT 12/24/2018 10:57 PM EDT Tiago Dinh PA-C URINE ORDERABLES Final R esult [facility]
[address] [place] [address], [place] [phone] * (ABNORMAL) Urinalysis With Culture If Indicated - Urine, Clean Catch (12/24/2018 10:55 PM EDT) Color, UA Dark Yellow(A) Yellow, Straw 12/24/2018 11:00 PM EDT [facility] Appearance, UA Clear Clear 12/24/2018 11:00 PM EDT [facility] pH, UA 7.0 5.0 - 8.0 12/24/2018 11:00 PM EDT [facility] Specific [place], UA 1.011 1.005 - 1.030 12/24/2018 11:00 PM EDT [facility] Glucose, UA 250 mg/dL (1+)(A) Negative 12/24/2018 11:00 PM EDT [facility] Ketones, UA Negative Negative 12/24/2018 11:00 PM EDT [facility] Bilirubin, UA Negative Negative 12/24/2018 11:00 PM EDT [facility] Blood, UA Negative Negative 12/24/2018 11:00 PM EDT [facility] Protein, UA 100 mg/dL (2+)(A) Negative 12/24/2018 11:00 PM EDT [facility] Leuk Esterase, UA Negative Negative 12/24/2018 11:00 PM EDT [facility] Nitrite, UA Positive(A) Negative 12/24/2018 11:00 PM EDT [facility] Urobilinogen, UA 1.0 E.U./dL 0.2 - 1.0 E.U./dL 12/24/2018 11:00 PM EDT [facility] Urine Urine specimen collection, clean catch / Unknown Collection / Unknown 12/24/2018 10:55 PM EDT 12/24/2018 10:57 PM EDT Tiago Dinh PA-C URINE ORDERABLES Final R esult [facility]
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 Chronic kidney disease, stage IV (severe) Chronic kidney disease, Stage IV (severe) Tinea corporis Dermatophytosis of the body documented in this encounter Administered Medications Inactive Administered Medications - up to 3 most recent administrations Medication Order MAR Action Action Date Dose Rate Site cefTRIAXone (ROCEPHIN) IVPB 1 g/50ml dextrose (premix) 1 g, Intravenous, at 100 mL/hr, Administer over 30 Minutes, Once, On 12/25/18 at 0003, For 1 dose, Caution: Look alike/sound alike drug alert, Indications: Urinary Tract InfectionIndications:Urinar y Tract Infection New Bag 12/25/2018 12:00 AM EDT 1 g 100 mL/hr sodium chloride 0.9 % bolus 1,000 mL 1,000 mL, Intravenous, at 2,000 mL/hr, Administer over 0.5 Hours, Once, On 12/24/18 at 2305, For 1 dose New Bag 12/24/2018 11:27 PM EDT 1,000 mL 2000 mL/hr sodium chloride 0.9 % flush 10 mL 10 mL, Intravenous, As Needed, Line Care, Starting on 12/24/18 at 2303 documented in this encounter Active and Recently Administered Medications Times are shown in EDT. Scheduled Medication Order 12/23/2018 12/24/2018 12/25/2018 cefTRIAXone (ROCEPHIN) IVPB 1 g/50ml dextrose (premix) (COMPLETED) 1 g, Intravenous, at 100 mL/hr, Administer over 30 Minutes, Once, On 12/25/18 at 0003, For 1 dose, Caution: Look alike/sound alike drug alert, Indications: Urinary Tract Infection 0000 (New Bag - Provider: Meg Torres, HERNÁN)0038 (Stopped - Provider: Meg Torres, RN) sodium chloride 0.9 % bolus 1,000 mL (COMPLETED) 1,000 mL, Intravenous, at 2,000 mL/hr, Administer over 0.5 Hours, Once, On 12/24/18 at 2305, For 1 dose 2327 (New Bag - Provider: Meg Torres, HERNÁN) 0102 (Stopped - Provider: Meg Torres, HERNÁN) PRN Medication Order 12/23/2018 12/24/2018 12/25/2018 sodium chloride 0.9 % flush 10 mL(Linked Group 1) 10 mL, Intravenous, As Needed, Line Care, Starting on 12/24/18 at 2303 Linked Groups Order Group 1: Insert peripheral IV (CANCELED) Once, On 12/24/18 at 2303, For 1 occurrence And sodium chloride 0.9 % flush 10 mLJump to med 10 mL, Intravenous, As Needed, Line Care, Starting on Tue12/24/18 at 2303 documented in this encounter
--- OUTSIDE RECORDS SUMMARY | 2024-05-30 08:36 | XMS_ITS | Encounter Summary ---
[facility] [address] [id number] Care Team Providers Care Oral Hygienist Name Role Phone Unavailable Primary Care Provider Unavailabl e Reason for Visit * Reason Comments Foot Injury Encounter Details Date Type Department Care Team (Late st Contact Info) Description 12/23/2018 4:42 PM EDT - 12/23/2018 6:50 PM EDT Emergency [facility] EMERGENCY DEPARTMENT [address] [place] [phone] Christopher Aggarwal MD Contusion of right foot, initial encounter (Primary Dx) Discharge Disposition: Home [...] Sign Reading Time Taken Comments Blood Pressure 133/86 12/23/2018 4:37 PM EDT Pulse 91 12/23/2018 4:37 PM EDT Temperature 37.2 ??C (98.9 ??F) 12/23/2018 4:37 PM ED T Respiratory Rate 16 12/23/2018 4:37 PM EDT Oxygen Saturation 93% 12/23/2018 4:37 PM EDT Inhaled Oxygen Concentration - - Weight 99 kg (218 lb 3.2 oz) 12/23/2018 4:37 PM EDT Height 165.1 cm (5' 5 ) 12/23/2018 4:37 PM EDT Body Mass Index 36.31 12/23/2018 4:37 PM EDT documented in this encounter Discharge Instructions * Attachments The following attachments cannot be sent through Care Everywhere. * Contusion [id number] (Indonesian) documented in this encounter Medications at Time [...] a Day. 14 capsule 12/21/2018 02/14/20 19 cyclobenzaprine (FLEXERIL) 5 MG tablet [...] With Meals. 20 tablet 10/09/2018 05/03/20 19 phenazopyridine (PYRIDIUM) 200 MG tablet Take 1 tablet by mouth 3 (Three) Times a Day As Needed for bladder spasms. 6 tablet 12/21/2018 05/03/20 19 traMADol (ULTRAM) 50 MG tablet Take 1 tablet by mouth Every 6 (Six) Hours As Needed for Moderate Pain or Severe Pain . 6 tablet 11/02/2018 02/16/20 23 documented as of this encounter ED Notes * Ladan Young RN - 12/23/2018 6:39 PM EDT Patient stated, I am ready to go. I have Tylenol in the car I can take. Dionicio Wakefield APRN notified. Ladan Young RN 12/23/18 1840 * Pearl Wakefield APRN - 12/23/2018 5:02 PM EDT Subjective History of Present Illness This is a 28-year-old female comes in today complaining of right foot pain. She reports that she dropped a case of soda on her foot yesterday. She is able to bear weight. Review of Systems Constitutional: Negative. HENT: Negative. Eyes: Negative. Respiratory: Negative. Cardiovascular: Negative. Gastrointestinal: Negative. Endocrine: Negative. Genitourinary: Negative. Musculoskeletal: Right foot pain Skin: Negative. Allergic/Immunologic: Negative. Neurological: Negative. Hematological: Negative. Psychiatric/Behavioral: Negative. All other systems reviewed and are negative. [...] INDUCED 2006 [facility] History reviewed. No pertinent family history. Social [...] Exam Constitutional: She appears well-developed and well-nourished. Nursing note and vitals reviewed. GEN: No acute distress Head: Normocephalic, atraumatic Eyes: Pupils equal round reactive to light ENT: Posterior pharynx normal in appearance, oral mucosa is moist Chest: Nontender to palpation Cardiovascular: Regular rate Lungs: Clear to auscultation bilaterally Abdomen: Soft, nontender, nondistended, no peritoneal signs Extremities: No edema, normal appearance Neuro: GCS 15 Psych: Mood and affect [...] Management options: low Final diagnoses: Contusion of right foot, initial encounter Pearl Wakefield APRN 12/23/18 1840 Cosigned by hCristopher Aggarwal MD at 12/23/2018 6:51 PM EDT Associated attestation - Christopher Aggarwal MD - 12/23/2018 6:51 PM EDT For this patient encounter, I reviewed the CUSTOMER SERVICE SALES ASSOCIATE or PA documentation, treatment plan, and medical decision making. Christopher Aggarwal MD 12/23/2018 6:51 PM documented in this encounter Plan of Treatment Not on file documented as of this encounter Procedures Procedure Name Priority Date/Time Associated Diagnosis Comments XR FOOT 3+ VW RIGHT STAT 12/23/2018 5 :37 PM EDT documented in this encounter Results * XR Foot 3+ View Right (12/23/2018 5:37 PM EDT) Anatomical Region Laterality Modality Lower Extremities, Foot Right Radiogra [facility] 12/23/2018 6:26 PM EDT Impressions 12/23/2018 6:26 PM EDT unremarkable. Authenticated by Ron Adams M.D. on 12/23/2018 06:26:58 PM Narrative 12/23/2018 6:26 PM EDT FINAL REPORT TECHNIQUE: 3 views of the foot were obtained. CLINICAL HISTORY: pain after soda dropped on it FINDINGS: There is no fracture, dislocation or other acute abnormality of bone or joint. ??The soft tissues are unremarkable. Procedure Note Long Adams MD - 12/23/2018 FINAL REPORT TECHNIQUE: 3 views of the foot were obtained. CLINICAL HISTORY: pain after soda dropped on it FINDINGS: There is no fracture, dislocation or other acute abnormality of bone or joint. The soft tissues are unremarkable. IMPRESSION: unremarkable. Authenticated by Rno Adams M.D. on 12/23/2018 06:26:58 PM [facility] ASSIGNMENT DESK EDITOR IM DIAGNOSTIC IMAGING OR DERABLES Final Result documented in this encounter Visit Diagnoses Diagnosis Contusion of right foot, initial encounter- Primary documented in this encounter Administered Medications Inactive Administered Medications - up to 3 most recent administrations Medication Order MAR Action Action Date Dose Rate Site meloxicam (MOBIC) tablet 7.5 mg 7.5 mg, Oral, Daily, First dose on 12/23/18 at 1841, Take with food. If given for pain, use the following pain scale: Mild Pain = Pain Score of 1-3, CPOT 1-2 Moderate Pain = Pain Score of 4-6, CPOT 3-4 Severe Pain = Pain Score of 7-10, CPOT 5-8 documented in this encounter Active and Recently Administered Medications Times are shown in EDT. Scheduled Medication Order 12/21/2018 12/22/2018 12/23/2018 meloxicam (MOBIC) tablet 7.5 mg 7.5 mg, Oral, Daily, First dose on 12/23/18 at 1841, Take with food. If given for pain, use the following pain scale: Mild Pain = Pain Score of 1-3, CPOT 1-2 Moderate Pain = Pain Score of 4-6, CPOT 3-4 Severe Pain = Pain Score of 7-10, CPOT 5-8 1849 (Not Given - Pr ovider: Ladan Young RN - Reason: Other - Comment: Patient has renal failure and cannot take NSAIDS. Dionicio Wakefield APRN notified.) documented in this encounter
--- OUTSIDE RECORDS SUMMARY | 2024-05-30 08:36 | XMS_ITS | Encounter Summary ---
[facility] Address [address] [place] [address] Care Team Providers Care Medical Review Specialist Name Role Phone Unavailable Primary Care Provider Unavailabl e Reason for Visit * (Emergency) - Closed Specialty Diagnoses / Procedures Referred By Contac t Referred To Contact Radiology Diagnoses Rib pain Procedures XR Ribs Left With PA Chest Thomas, Fabiola Villafuerte MD [address] [place] [phone] Phone: tel: fax: Referral ID Status Reason Start Date Expiration Date Visits Re quested Visits Authorized [id number] Closed 08/28/2018 08/28/2019 1 1 Encounter Details Date Type Department Care Team (Late st Contact Info) Description 08/28/2018 1:34 PM EST - 08/28/2018 11:59 PM [facility] Hospital Encounter [facility] XRAY [address] [place] [address] Mukul Stevens MD [address] [facility] [address] [place] [address] Discharge Disposition: Home or Self Care Social [...] Name Priority Date/Time Associated Diagnosis Comments XR RIBS LEFT W PA CHEST STAT 08/28/2018 1:59 PM EST Rib pain documented in this encounter Results * XR Ribs Left With PA Chest (08/28/2018 1:59 PM EST) Anatomical Region Laterality Modality Body Left Computed Radiogr aphy 08/28/2018 2:26 PM EST Impressions 08/28/2018 2:26 [...] 08/28/2018 2:26 PM by Brittny Lacey M.D.. Fabiola Guzman MD IMG DIAGNOSTIC IMAGING ORDER BERTIN Final Result documented in this encounter Visit Diagnoses Not on filedocumented in this encounter
--- OUTSIDE RECORDS SUMMARY | 2024-05-30 08:36 | XMS_ITS | Encounter Summary ---
[facility] [address] [place] [address] Care Team Providers Care Family Court Registrar Name Role Phone Unavailable Primary Care Provider Unavailabl e Encounter Details Date Type Department Care Team (Late st Contact Info) Description 10/11/[address] [facility] UROLOGY [address] [phone] Fabiola Guzman MD [address] [place], [place] [id number] Social History Tobacco Use Types Packs/Day Years [...] encounter Miscellaneous Notes * Telephone Encounter - Irma Gonzalez MA - 10/25/2018 2:50 PM EDT PT DID NOT WANT TO BE SCHEDULED documented in this encounter Plan of Treatment Not on file documented as of this encounter Visit Diagnoses Not on filedocumented in this encounter
--- OUTSIDE RECORDS SUMMARY | 2024-05-30 08:36 | XMS_ITS | Encounter Summary ---
[facility] Address [address] [place] [address] Care Team Providers Care Assembly Adjuster Name Role Phone Unavailable Primary Care Provider Unavailabl e Reason for Visit * Reason Comments Post-op Problem Encounter Details Date Type Department Care Team (Late st Contact Info) Description 11/02/2018 7:56 PM EDT - 11/02/2018 9:23 PM EDT Emergency [facility] EMERGENCY DEPARTMENT [address] [place] [address] Phill Gama, DO [address] [place], [place] [phone] Pain, dental (Primary Dx) Discharge Disposition: Home or Self [...] Sign Reading Time Taken Comments Blood Pressure 142/86 11/02/2018 9:22 PM EDT Pulse 98 11/02/2018 9:22 PM EDT Temperature 37.7 ??C (99.8 ??F) 11/02/2018 9:22 PM ED T Respiratory Rate 18 11/02/2018 9:22 PM EDT Oxygen Saturation 100% 11/02/2018 9:22 PM EDT Inhaled Oxygen Concentration - - Weight 99.3 kg (219 lb) 11/02/2018 7:16 PM EDT Height 165.1 cm (5' 5 ) 11/02/2018 7:16 PM EDT Body Mass Index 36.44 11/02/2018 7:16 PM EDT documented in this encounter Discharge Instructions * Attachments The following attachments cannot be sent through Care Everywhere. * Dental Pain [id number] (Zimbabwean) documented in this encounter Medications at Time [...] With Meals. 20 tablet 10/09/2018 05/03/20 19 traMADol (ULTRAM) 50 MG tablet Take 1 tablet by mouth Every 6 (Six) Hours As Needed for Moderate Pain or Severe Pain . 6 tablet 11/02/2018 02/16/20 23 documented as of this encounter ED Notes * Bc Dumont, JOHN - 11/02/2018 8:02 PM EDT Subjective Patient is here with complaint of some pain to her wisdom teeth, from removal 3 days ago patient was seen here recently for some unrelated back pain, states that that is doing better but since the wisdom teeth removal she is concerned about a dry socket possibly she does have an appointment to see the dentist tomorrow... No nausea vomiting no fevers reported no trouble swallowing presents here for further evaluation History provided by: Patient Review of Systems Constitutional: Negative. HENT: Positive for dental problem. Negative for trouble swallowing. Eyes: Negative. Respiratory: Negative. Negative for shortness of breath. Cardiovascular: Negative. Gastrointestinal: Negative. Musculoskeletal: Negative. Skin: Negative. Neurological: Negative. Psychiatric/Behavioral: The patient [...] Exam Constitutional: She appears well-developed and well-nourished. No distress. Nontoxic well-appearing no acute distress HENT: Head: Normocephalic and atraumatic. Mouth/Throat: Oropharynx is clear and moist. Ear pharynx clear with uvula midline no airway compromise there is no abscess or facial edema or edema to the right lower molar or premolar area no evidence of abscess Eyes: Conjunctivae and EOM are normal. Pupils are equal, round, and reactive to light. Neck: Normal range of motion. Neck supple. Cardiovascular: Regular rhythm and intact distal pulses. Pulmonary/Chest: Effort normal and breath sounds normal. Musculoskeletal: Normal range of motion. Neurological: She is alert. No cranial nerve deficit or sensory deficit. She exhibits normal muscletone. Coordination normal. Skin: Skin is warm. Capillary refill takes less than 2 seconds. She is not diaphoretic. Psychiatric: Her behavior is normal. Judgment and thought content normal. Nursing note and vitals reviewed. Procedures ED Course ED Course as of Nov 03 2043 Emma Nov 02, 20182019 Riaz reviewed [SC] 2040 0.5% Sensorcaine times 1.5 mL base of right lower molar, site of wisdom tooth extraction with immediate improvement of pain [SC] ED Course User Index [SC] Bc Dumont PA-C MDM Number of Diagnoses or Management Options Amount and/or Complexity of Data Reviewed Decide to obtain previous medical records or to obtain history from someone other than the patient:yes Review and summarize past medical records: yes Discuss the patient with other providers: yes Risk of Complications, Morbidity, and/or Mortality Presenting problems: low Diagnostic procedures: low Management options: low Final diagnoses: Pain, dental Bc Dumont PA-C 11/02/182043 Cosigned by Phill Gama DO at 11/02/2018 11:14 PM EDT Associated attestation - Phill Gama BDO - 11/02/2018 11:14 PM EDT For this patient encounter, I reviewed the HOME CARE AIDE or PA documentation, treatment plan, and medical decision making. Phill B YevgeniykeenanDO 11/02/2018 11:14 PM documented in this encounter Plan of Treatment Not on file documented as of this encounter Visit Diagnoses Diagnosis Pain, dental- Primary documented in this encounter Administered Medications Inactive Administered Medications - up to 3 most recent administrations Medication Order MAR Action Action Date Dose Rate Site acetaminophen (TYLENOL) tablet 1,000 mg 1,000 mg, Oral, Once, On Emma 11/02/18 at 2021, For 1 dose Given 11/02/2018 9:16 PM EDT 1,000 mg bupivacaine (PF) (MARCAINE) 0.5 % injection 10 mL 10 mL, Injection, Once, On Emma 11/02/18 at 2021, For 1 dose, Vial to bedside - Document actual dose at time of admin by provider. Given by Other 11/02/2018 9:22 PM EDT 10 mL traMADol (ULTRAM) tablet 50 mg 50 mg, Oral, Once, On Emma 11/02/18 at 2030, For 1 dose, {WILLIS} Caution: Look alike/sound alike drug alert If given for pain, use the following pain scale: Mild Pain = Pain Score of 1-3, CPOT 1-2 Moderate Pain = Pain Score of 4-6, CPOT 3-4 Severe Pain = Pain Score of 7-10, CPOT 5-8 Given 11/02/2018 9:16 PM EDT 50 mg documented in this encounter Active and Recently Administered Medications Times are shown in EDT. Scheduled Medication Order 10/31/2018 11/01/2018 11/02/2018 acetaminophen (TYLENOL) tablet 1,000 mg (COMPLETED) 1,000 mg, Oral, Once, On Emma 11/02/18 at 2021, For 1 dose 2115 (Given - Provid er: Ela Hansen RN) bupivacaine (PF) (MARCAINE) 0.5 % injection 10 mL (COMPLETED) 10 mL, Injection, Once, On Emma 11/02/18 at 2021, For 1 dose, Vial to bedside - Document actual dose at time of admin by provider. 2121 (Given by Other - Provider: Ela Hansen, HERNÁN) traMADol (ULTRAM) tablet 50 mg (COMPLETED) 50 mg, Oral, Once, On Emma 11/02/18 at 2030, For 1 dose, {WILLIS} Caution: Look alike/sound alike drug alert If given for pain, use the following pain scale: Mild Pain = Pain Score of 1-3, CPOT 1-2 Moderate Pain = Pain Score of 4-6, CPOT 3-4 Severe Pain = Pain Score of 7-10, CPOT 5-8 2115 (Given - Provid er: Ela Hansen, HERNÁN) documented in this encounter
--- OUTSIDE RECORDS SUMMARY | 2024-05-30 08:36 | XMS_ITS | Encounter Summary ---
[facility] Address [address] [place] [phone] Care Team Providers Care Database Management System Specialist Name Role Phone Unavailable Primary Care Provider Unavailabl e Reason for Visit * Reason Comments Leg Pain Encounter Details Date Type Department Care Team (Late st Contact Info) Description 10/31/2018 9:24 PM EDT - 10/31/2018 10:26 PM EDT Emergency [facility] EMERGENCY DEPARTMENT [address] [place] [address] Phill Gama, DO [address] [place] [address] Acute left-sided low back pain with left-sided sciatica (Primary Dx) Discharge Disposition: Home or Self [...] Sign Reading Time Taken Comments Blood Pressure 139/92 10/31/2018 8:45 PM EDT Pulse 106 10/31/2018 8:45 PM EDT Temperature 37.1 ??C (98.8 ??F) 10/31/2018 8:45 PM ED T Respiratory Rate 20 10/31/2018 8:45 PM EDT Oxygen Saturation 99% 10/31/2018 8:45 PM EDT Inhaled Oxygen Concentration - - Weight 99.3 kg (219 lb) 10/31/2018 8:45 PM EDT Height 165.1 cm (5' 5 ) 10/31/2018 8:45 PM EDT Body Mass Index 36.44 10/31/2018 8:45 PM EDT documented in this encounter Discharge Instructions * Attachments The following attachments cannot be sent through Care Everywhere. * Sciatica Mfeo-xu-Phwi (Greenlandic) documented in this encounter Medications at Time [...] by mouth Daily. 02/16/20 23 cyclobenzaprine (FLEXERIL) 10 MG tablet Take 1 tablet by mouth 3 (Three) Times a Day As Needed for Muscle Spasms. 12 tablet 10/31/2018 11/03/19 19 cyclobenzaprine (FLEXERIL) 5 MG tablet Take [...] 11/03/19 19 documented as of this encounter ED Notes * Phill Gama Yared, DO - 10/31/2018 10:26 PM EDT Subjective 28 yo f with cc of left leg pain. Dull ache that starts in her low back and radiates down the lateral and posterior aspect of her left leg. Worse with movement. Present for 3 days and worsening sinceonset. Started after heavy lifting. No loss of bowel or bladder control. No numbness or weakness. No fever or chills. No IVDA. No prior treatments. No other complaints. Review of Systems Musculoskeletal: Positive for arthralgias and back pain. Neurological: Negative for numbness. All other systems reviewed and are negative. [...] No distress. HENT: Head: Normocephalic and atraumatic. Nose: Nose normal. Eyes: Conjunctivae and EOM are normal. Cardiovascular: Normal rate and regular rhythm. Pulmonary/Chest: Effort normal and breath sounds normal. No respiratory distress. Abdominal: Soft. She exhibits no distension. There is no tenderness. There is no guarding. Musculoskeletal: She exhibits no edema or deformity. Left lumbar paraspinal muscle TTP, no ecchymosis or rash, no midline TTP Neurological: She is alert and oriented to person, place, and time. No cranial nerve deficit. Skin: She is not diaphoretic. Nursing note and vitals reviewed. Procedures ED Course Presents with left-sided low back pain. Radiation into the leg. Exam and history consistent with sciatica. Patient will be discharged with symptom medic treatment. Follow-up as needed. MDM Final diagnoses: Acute left-sided low back pain with left-sided sciatica Phill Gama DO 11/01/18 0102 documented in this encounter Plan of Treatment Not on file documented as of this encounter Visit Diagnoses Diagnosis Acute left-sided low back pain with left-sided sciatica- Primary documented in this encounter Administered Medications Inactive Administered Medications - up to 3 most recent administrations Medication Order MAR Action Action Date Dose Rate Site cyclobenzaprine (FLEXERIL) tablet 10 mg 10 mg, Oral, Once, On Tue10/31/18 at 2218, For 1 dose Given 10/31/2018 10:24 PM EDT 10 mg dexamethasone (DECADRON) tablet 10 mg 10 mg, Oral, Once, On Tue10/31/18 at 2218, For 1 dose, Take with food. Given 10/31/2018 10:24 PM EDT 10 mg documented in this encounter Active and Recently Administered Medications Times are shown in EDT. Scheduled Medication Order 10/29/2018 10/30/2018 10/31/2018 cyclobenzaprine (FLEXERIL) tablet 10 mg (COMPLETED) 10 mg, Oral, Once, On Tue10/31/18 at 2218, For 1 dose 222 (Given - Provid er: Bing Tomlin RN) dexamethasone (DECADRON) tablet 10 mg (COMPLETED) 10 mg, Oral, Once, On Tue10/31/18 at 2218, For 1 dose, Take with food. 2224 (Given - Provid er: Bing Tomlin RN) documented in this encounter
--- OUTSIDE RECORDS SUMMARY | 2024-05-30 08:36 | XMS_ITS | Encounter Summary ---
Author Organization [facility] Address [address] [place] [address] Care Team Providers Care Records And Tape Recordings Engineer Name Role Phone Unavailable Primary Care Provider Unavailabl e Reason for Visit * Hospital - Outpatient (Emergency) - Closed Specialty Diagnoses / Procedures Referred By Contac t Referred To Contact Radiology Diagnoses Hematuria, unspecified type Procedures US urinary bladder Thomas, Fabiola Villafuerte MD [address] [place] [phone] Phone: tel: fax: Referral ID Status Reason Start Date Expiration Date Visits Re quested Visits Authorized [id number] Closed 09/25/2018 09/25/2019 1 1 Encounter Details Date Type Department Care Team (Latest Contact Info) Description 09/25/2018 2:15 PM EDT - 09/25/2018 11:59 PM EDT Hospital Encounter [address] [phone] Discharge Disposition: Home or Self Care [...] Name Priority Date/Time Associated Diagnosis Comments US URINARY BLADDER STAT 09/25/2018 3: 23 PM EDT Hematuria, unspecified type documented in this encounter Results * US urinary bladder (09/25/2018 3:23 PM EDT) Anatomical Region Laterality Modality Body, Pelvis Ultrasound 09/25/2018 4:00 PM EDT Impressions 09/25/2018 4:02 PM EDT Unremarkable urinary bladder ultrasound. This report was finalized on 09/25/2018 4:02 PM by Surendra Pike MD. Narrative 09/25/2018 4:02 PM EDT URINARY BLADDER ULTRASOUND INDICATION: Hematuria. FINDINGS: Prevoid bladder volume is 174 mL with trace post void residual of 7 mL. No intraluminal filling defects or significant wall thickening. Procedure Note Janak Pike MD - 09/25/2018 URINARY BLADDER ULTRASOUND INDICATION: Hematuria. FINDINGS: Prevoid bladder volume is 174 mL with trace post void residual of 7 mL. No intraluminal filling defects or significant wall thickening. IMPRESSION: Unremarkable urinary bladder ultrasound. This report was finalized on 09/25/2018 4:02 PM by Surendra Pike MD. us Fabiola Guzman MD IMG US ORDERABLES Final Resu lt documented in this encounter Visit Diagnoses Not on filedocumented in this encounter
--- OUTSIDE RECORDS SUMMARY | 2024-05-30 08:36 | XMS_ITS | Encounter Summary ---
Author Organization [facility] Address [address] [place] [id number] Care Team Providers Care Auto Body Repairer Name Role Phone Unavailable Primary Care Provider Unavailabl e Reason for Visit * Reason Comments Fall Encounter Details Date Type Department Care Team (Late st Contact Info) Description 10/09/2018 7:27 PM EDT - 10/09/2018 9:06 PM EDT Emergency [facility] EMERGENCY DEPARTMENT [address] [place] [phone] Dominik Rizo MD [address] [place] [address] Acute right-sided low back pain without sciatica (Primary Dx); Acute pain of left knee Discharge Disposition: Home or Self Care Social [...] Sign Reading Time Taken Comments Blood Pressure 131/89 10/09/2018 6:21 PM EDT Pulse 96 10/09/2018 6:21 PM EDT Temperature 36.9 ??C (98.5 ??F) 10/09/2018 6:21 PM ED T Respiratory Rate 18 10/09/2018 6:21 PM EDT Oxygen Saturation 99% 10/09/2018 6:21 PM EDT Inhaled Oxygen Concentration - - Weight 98.6 kg (217 lb 6.4 oz) 10/09/2018 6:21 P M EDT Height 165.1 cm (5' 5 ) 10/09/2018 6:21 PM EDT Body Mass Index 36.18 10/09/2018 6:21 PM EDT documented in this encounter Discharge Instructions * Attachments The following attachments cannot be sent through Care Everywhere. * Acute Back Pain Adult (Albanian) * Knee Pain Adult [id number] (Albanian) documented in this encounter Medications at Time [...] As Needed for Muscle Spasms. 12 tablet 10/09/2018 11/01/19 19 fenofibrate (TRICOR) 145 MG tablet Take 160 [...] as of this encounter ED Notes * Alissa Bowman RN - 10/09/2018 9:06 PM EDT Upon discharge, pt is irate that she is not getting medication for pain. She states she is unable to take Naproxen due to previous renal dysfunction. Dr Rizo made aware and states to have pt just take Flexeril Rx. Pt begins cussing, stating that if I was a pill head I would get anything I wanted . PT redirected, informed this is the treatment for her diagnosis and I am willing to have Dr Rizo come to bedside to explain. Pt refuses. States she will not return to this facilty. Pt encouraged to take Xray disc to PCP for f/u and to discuss possible MRI since we are unable to do MRI in the ED. Pt states this was a waste of my time . Pt leaves ED Alissa Bowman RN 10/09/182110 * Dominik Rizo MD - 10/09/2018 9:02 PM EDT Subjective Patient is a 28-year-old who presents after slipping down the stairs carrying groceries in the house striking the right side of her back. Patient states that she has strained her left knee and saw the orthopedic doctor for this earlier this week and it hurts again after falling. Right-sided back pain is worse with movement, aching, constant and hurts like a son of a bitch . Review of Systems All other systems reviewed [...] Abdomen: Soft, nontender, nondistended, no peritoneal signs Back: Palpable muscle spasm in the right lumbosacral region. Extremities: Abrasions on left knee. Neuro: GCS 15 Psych: Mood and affect are appropriate Procedures ED Course MDM Number of Diagnoses or Management Options Acute pain of left knee: Acute right-sided low back pain without sciatica: Diagnosis management comments: Given intramuscular injection Norflex in the emergency department. X-ray of the lumbar spine as well as left knee show no acute abnormalities. Will send home with muscle relaxers for symptom control. Patient stated she could not take anti-inflammatories and I explained that I was unwilling to give her narcotic. Amount and/or Complexity of Data Reviewed Tests in the radiology section of CPT??: reviewed Decide to obtain previous medical records or to obtain history from someone other than the patient:yes Review and summarize past medical records: yes Independent visualization of images, tracings, or specimens: yes Final diagnoses: Acute right-sided low back pain without sciatica Acute pain of left knee Dominik Rizo MD 10/09/18 2108 documented in this encounter Plan of Treatment Not on file documented as of this encounter Procedures Procedure Name Priority Date/Time Associated Diagnosis Comments XR SPINE LUMBAR 2 OR 3 VW STAT 10/09/2018 8:32 PM EDT XR KNEE 3 VW LEFT STAT 10/09/2018 8:3 1 PM EDT documented in this encounter Results * XR Spine Lumbar 2 or 3 View (10/09/2018 8:32 PM EDT) Anatomical Region Laterality Modality Spine, L-spine N/A Radiographic Kim ging 10/10/2018 7:37 AM EDT Impressions 10/10/2018 7:38 AM EDT Unremarkable exam. This report was finalized on 10/10/2018 7:38 AM by Brittny Lacey M.D.. Narrative 10/10/2018 7:38 AM EDT PROCEDURE: XR SPINE LUMBAR 2 OR 3 VW- HISTORY: fall, pain FINDINGS: 3 views of the lumbar spine were obtained. The pedicles are intact. The intervertebral disc spaces are maintained. There is no acute fracture or acute malalignment. There is no significant subluxation . Procedure Note Brittny Lacey MD - 10/10/2018 PROCEDURE: XR SPINE LUMBAR 2 OR 3 VW- HISTORY: fall, pain FINDINGS: 3 views of the lumbar spine were obtained. The pedicles are intact. The intervertebral disc spaces are maintained. There is no acute fracture or acute malalignment. There is no significant subluxation . IMPRESSION: Unremarkable exam. This report was finalized on 10/10/2018 7:38 AM by Brittny Lacey M.D.. Dominik Rizo MD IMG DIAGNOSTIC IMAGING ORDERAB LES Final Result * XR Knee 3 View Left (10/09/2018 8:31 PM EDT) Anatomical Region Laterality Modality Lower Extremities, Knee Left Radiogra phic Imaging 10/10/2018 7:37 AM EDT Impressions 10/10/2018 7:37 AM EDT No acute fracture. This report was finalized on 10/10/2018 7:37 AM by Brittny Lacey M.D.. Narrative 10/10/2018 7:37 AM EDT PROCEDURE: XR KNEE 3 VW LEFT- History: knee pain after fall COMPARISON: None. FINDINGS: ??A 3 view exam demonstrates no acute fracture or dislocation. The joint spaces are preserved. No soft tissue abnormality is seen. Procedure Note Brittny Lacey MD - 10/10/2018 PROCEDURE: XR KNEE 3 VW LEFT- History: knee pain after fall COMPARISON: None. FINDINGS: A 3 view exam demonstrates no acute fracture or dislocation. The joint spaces are preserved. No soft tissue abnormality is seen. IMPRESSION: No acute fracture. This report was finalized on 10/10/2018 7:37 AM by Brittny Lacey M.D.. us Dominik Rizo MD IMG DIAGNOSTIC IMAGING ORDERAB LES Final Result documented in this encounter Visit Diagnoses Diagnosis Acute right-sided low back pain without sciatica- Primary Acute pain of left knee documented in this encounter Administered Medications Inactive Administered Medications - up to 3 most recent administrations Medication Order MAR Action Action Date Dose Rate Site orphenadrine (NORFLEX) injection 60 mg 60 mg, Intramuscular, Once, On Tue10/09/18 at 1950, For 1 dose Given 10/09/2018 8:46 PM EDT 60 mg Right Upper Outer Quadrant documented in this encounter Active and Recently Administered Medications Times are shown in EDT. Scheduled Medication Order 10/07/2018 10/08/2018 10/09/2018 orphenadrine (NORFLEX) injection 60 mg (COMPLETED) 60 mg, Intramuscular, Once, On Tue10/09/18 at 1950, For 1 dose 2045 (Given - Provid er: Alissa Bowman RN) documented in this encounter
--- OUTSIDE RECORDS SUMMARY | 2024-05-30 08:36 | XMS_ITS | Encounter Summary ---
Author Organization [facility] Address [address] [place] [address] Care Team Providers Care Outside Maintenance Worker Name Role Phone Unavailable Primary Care Provider Unavailabl e Encounter Details Date Type Department Care Team (Late st Contact Info) Description 12/27/2018 4:15 PM EDT Lab [facility] [address] [place] [phone] Vitamin D deficiency; Chronic kidney disease, stage IV (severe); Hyperparathyroidism, secondary Social History Tobacco Use Types Packs/Day Years [...] Diagnosis Comments CBC WITH AUTO DIFFERENTIAL Routine 12/27/2018 5:05 PM EDT Chronic kidney disease, stage IV (severe) VITAMIN D,25-HYDROXY Routine 12/27/2018 5:05 PM EDT Vitamin D deficiency CBC AND DIFFERENTIAL Routine 12/27/2018 5:05 PM EDT Chronic kidney disease, stage IV (severe) PTH, INTACT Routine 12/27/2018 5:05 PM EDT Hyperparathyroidism , secondary RENAL FUNCTION PANEL Routine 12/27/2018 5:05 PM EDT Chronic kidney disease, stage IV (severe) documented in this encounter Results * (ABNORMAL) CBC Auto Differential (12/27/2018 5:05 PM EDT) WBC 10.27 3.40 - 10.80 10*3/mm3 12/27/2018 5:25 PM EDT [facility] RBC 3.96 3.77 - 5.28 10*6/mm3 12/27/2018 5:25 PM EDT [facility] Hemoglobin 11.4(L) 12.0 - 15.9 g/dL 12/27/2018 5:25 PM EDT [facility] Hematocrit 34.9 34.0 - 46.6 % 12/27/2018 5:25 PM EDT [facility] MCV 88.1 79.0 - 97.0 fL 12/27/2018 5:25 PM EDT [facility] MCH 28.8 26.6 - 33.0 pg 12/27/2018 5:25 PM EDT [facility] MCHC 32.7 31.5 - 35.7 g/dL 12/27/2018 5:25 PM EDT [facility] RDW 12.8 12.3 - 15.4 % 12/27/2018 5:25 PM EDT [facility] RDW-SD 40.4 37.0 - 54.0 fl 12/27/2018 5:25 PM EDT [facility] MPV 13.0(H) 6.0 - 12.0 fL 12/27/2018 5:25 PM EDT [facility] Platelets 263 140 - 450 10*3/mm3 12/27/2018 5:25 PM EDT [facility] Neutrophil % 54.8 42.7 - 76.0 % 12/27/2018 5:25 PM EDT [facility] Lymphocyte % 35.3 19.6 - 45.3 % 12/27/2018 5:25 PM EDT [facility] Monocyte % 5.6 5.0 - 12.0 % 12/27/2018 5:25 PM EDT [facility] Eosinophil % 3.4 0.3 - 6.2 % 12/27/2018 5:25 PM EDT [facility] Basophil % 0.4 0.0 - 1.5 % 12/27/2018 5:25 PM EDT [facility] Immature Grans % 0.5 0.0 - 0.5 % 12/27/2018 5:25 PM EDT [facility] Neutrophils, Absolute 5.62 1.70 - 7.00 10*3/mm3 12/27/2018 5:25 PM EDT [facility] Lymphocytes, Absolute 3.63(H) 0.70 - 3.10 10*3/mm3 12/27/2018 5:25 PM EDT [facility] Monocytes, Absolute 0.58 0.10 - 0.90 10*3/mm3 12/27/2018 5:25 PM EDT [facility] Eosinophils, Absolute 0.35 0.00 - 0.40 10*3/mm3 12/27/2018 5:25 PM EDT [facility] Basophils, Absolute 0.04 0.00 - 0.20 10*3/mm3 12/27/2018 5:25 PM EDT [facility] Immature Grans, Absolute 0.05 0.00 - 0.05 10*3/mm3 12/27/2018 5:25 PM EDT [facility] nRBC 0.0 0.0 - 0.2 /100 WBC 12/27/2018 5:25 PM EDT [facility] Blood Venipuncture / Unknown 12/27/2018 5:05 PM EDT 12/27/2018 5:19 PM EDT us Mukul Stevens MD LAB BLOOD ORDERABLES F inal Result [facility]
[address] [place] [address], * (ABNORMAL) Renal Function Panel (12/27/2018 5:05 PM EDT) [facility] Glucose 82 74 - 98 mg/dL 12/27/2018 5:54 PM EDT [facility] BUN 41(H) 7 - 20 mg/dL 12/27/2018 5:54 PM EDT [facility] Creatinine 3.70(H) 0.60 - 1.30 mg/dL 12/27/2018 5:54 PM EDT [facility] Sodium 140 137 - 145 mmol/L 12/27/2018 5:54 PM EDT [facility] Potassium 4.5 3.5 - 5.1 mmol/L 12/27/2018 5:54 PM EDT [facility] Chloride 102 98 - 107 mmol/L 12/27/2018 5:54 PM EDT [facility] CO2 24.0(L) 26.0 - 30.0 mmol/L 12/27/2018 5:54 PM EDT [facility] Calcium 8.7 8.4 - 10.2 mg/dL 12/27/2018 5:54 PM EDT [facility] Albumin 4.60 3.50 - 5.00 g/dL 12/27/2018 5:54 PM EDT [facility] Phosphorus 7.3(H) 2.5 - 4.5 mg/dL 12/27/2018 5:54 PM EDT [facility] Anion Gap 18.5 10.0 - 20.0 mmol/L 12/27/2018 5:54 PM EDT [facility] BUN/Creatinine Ratio 11.1 7.1 - 23.5 12/27/2018 5:54 PM T [facility] eGFR Non Amer 14(L) >60 mL/min/1.7 3 12/27/2018 5:54 PM EDT [facility] Comment:<15 Indicative of ki dney failure. eGFR Amer >60 mL/min/1.7 3 12/27/2018 5:54 PM EDT [facility] Comment:<15 Indicative of ki dney failure. Blood Venipuncture / Unknown 12/27/2018 5:05 PM EDT 12/27/2018 5:19 PM EDT [facility] - 12/27/2018 5:54 PM EDT GFR Normal >60 Chronic Kidney Disease <60 Kidney Failure <15 Mukul Stevens MD LAB BLOOD ORDERABLES F inal Result Performing Organization Address City/[facility]/ZIP Co de Phone Number [facility]
[address] [place] [address], * (ABNORMAL) PTH, Intact (12/27/2018 5:05 PM EDT) PTH, Intact 201(H) 15 - 65 pg/mL 12/28/2018 4:12 PM EDT [facility] Blood Venipuncture / Unknown 12/27/2018 5:05 PM EDT 12/27/2018 5:19 PM EDT [facility] - 12/28/2018 4:12 PM EDT Performed at: ??01 - [facility] ??[id number] Building Services Engineer: Jacob Whaley PhD, Phone: ??[phone] Mukul Stevens MD LAB BLOOD ORDERABLES F inal Result Performing Organization Address [facility]/ZIP Co de Phone Number [facility] [address] [place] [id number], * Vitamin D 25 Hydroxy (12/27/2018 5:05 PM EDT) 25 Hydroxy, Vitamin D 24.7 ng/ml 12/27/2018 6:20 PM EDT [facility] Blood Venipuncture / Unknown 12/27/2018 5:05 PM EDT 12/27/2018 5:19 PM EDT [facility] - 12/27/2018 6:20 PM EDT Interpretation ?ng/mL ? Deficient ? <20 Insufficient ? 20-29 Sufficient ? 30-100 Potential Toxicity ? >100 As per:. Eryn CONNELL, Haresh KANG, Marlin BARONE, et al. Evaluation, treatment, and prevention of vitamin D deficiency: ??an Endocrine Society clinical practice guideline. JCEM. 2011 Jan; 96(7):1911-30. us Mukul Stevens MD LAB BLOOD ORDERABLES F inal Result [facility]
[address] [place] [address], [place] [phone] documented in this encounter Visit Diagnoses Diagnosis Vitamin D deficiency Chronic kidney disease, stage IV (severe) Chronic kidney disease, Stage IV (severe) Hyperparathyroidism, secondary documented in this encounter
--- OUTSIDE RECORDS SUMMARY | 2024-05-30 08:36 | XMS_ITS | Encounter Summary ---
Author Organization [facility] Address [address] [place] [id number] Care Team Providers Care Jockey Agent Name Role Phone Unavailable Primary Care Provider Unavailabl e Reason for Visit * Reason Comments Arm Pain Encounter Details Date Type Department Care Team (Late st Contact Info) Description 09/01/2018 1:01 PM EST - 09/01/2018 2:23 PM EST Emergency [facility] EMERGENCY DEPARTMENT [address] [place] [phone] Krissy Bowman MD Closed fracture of proximal end of ulna without additional fracture (Primary Dx) Discharge Disposition: Home or Self [...] Sign Reading Time Taken Comments Blood Pressure 132/85 09/01/2018 2:18 PM EST Pulse 91 09/01/2018 2:18 PM EST Temperature 36.6 ??C (97.9 ??F) 09/01/2018 2:18 PM ES T Respiratory Rate 18 09/01/2018 2:18 PM EST Oxygen Saturation 99% 09/01/2018 2:18 PM EST Inhaled Oxygen Concentration - - Weight 99.8 kg (220 lb) 09/01/2018 12:57 PM EST Height 165.1 cm (5' 5 ) 09/01/2018 12:57 PM EST Body Mass Index 36.61 09/01/2018 12:57 PM EST documented in this encounter Discharge Instructions * Attachments The following attachments cannot be sent through Care Everywhere. * Ulnar Fracture (Kyrgyz) documented in this encounter Medications at Time [...] ED Notes * Rashard Moody PA-C - 09/01/2018 1:18 PM ESTAssociated Order(s): Splint - Cast - Strapping Subjective Pt states lifted two 5 gallon buckets with left hand filled with cow feed/corn and felt pop and pain in left distal biceps. Then later that day slammed door using left arm and felt another pop in left distal biceps. Holds let elbow flexed at 90 degrees and states unable to extend or flex due to pain. Points to left distal biceps tendon proximal to antecubital fossa to indicate point of pain. Review of Systems Musculoskeletal: Pain in left distal biceps All other systems reviewed and are negative. [...] No distress. HENT: Head: Normocephalic and atraumatic. Cardiovascular: Normal rate and regular rhythm. Pulmonary/Chest: Effort normal. Musculoskeletal: She exhibits no edema or deformity. Tenderness and decreased ROM of left arm. specifically tender over left distal biceps tendon. Slight deformity noted to head of biceps. Neurological: She is alert and oriented to person, place, and time. No sensory deficit. Skin: Skin is warm. Capillary refill takes less than 2 seconds. Psychiatric: She has a normal mood and affect. Her behavior is normal. Judgment and thought contentnormal. Splint - Cast - Strapping Date/Time: 09/01/2018 2:05 PM Performed by: Rashard Moody PA-C Authorized by: Krissy Bowman MD Consent: Consent obtained: Verbal Consent given by: Patient Alternatives discussed: No treatment Pre-procedure details: Sensation: Normal Procedure details: Laterality: Left Location: Elbow Elbow: L elbow Strapping: no Cast type: Long arm Splint type: Long arm Supplies: Ortho-Glass Post-procedure details: Pain: Unchanged Sensation: Normal Patient tolerance of procedure: Tolerated well, no immediate complications ED Course MDM Final diagnoses: Closed fracture of proximal end of ulna without additional fracture Rashard Moody PA-C 09/01/18 1408 Cosigned by Krissy Bowman MD at 09/01/2018 7:40 PM EST Associated attestation - Krissy Bowman MD - 09/01/2018 7:40 PM EST For this patient encounter, I reviewed the CAST [employer]ON DRAIN PIPE LAYER or PA documentation, treatment plan, and medical decision making. Krissy Bowman MD 09/01/2018 7:40 PM documented in this encounter Plan of Treatment Not on file documented as of this encounter Procedures Procedure Name Priority Date/Time Associated Diagnosis Comments XR ELBOW 3+ VW LEFT STAT 09/01/2018 1 :38 PM EST PA APPLICATION CAST SHOULDER HAND LONG ARM Routine 09/01/2018 1:18 PM EST PA APPLICATION LONG ARM SPLINT SHOULDER HAND Routine 09/01/2018 1:18 PM EST documented in this encounter Results * XR Elbow 3+ View Left (09/01/2018 1:38 PM EST) Anatomical Region Laterality Modality Upper Extremities, Elbow Left Radiogr aphic Imaging 09/01/2018 1:38 PM EST Impressions 09/01/2018 1:39 PM EST Findings suggesting a nondisplaced fracture of the medial ulna seen on the frontal view. Clinical correlation with site of pain is recommended. ?? This report was finalized on 09/01/2018 1:39 PM by Brittny Lacey M.D.. Narrative 09/01/2018 1:39 PM EST PROCEDURE: XR ELBOW 3+ VW LEFT- History: pain, injury COMPARISON: None. FINDINGS: ??A 4 view exam demonstrates a suspected nondisplaced fracture of the medial ulna seen on the frontal view. No other osseous abnormalities are identified. No significant joint effusion is evident. ?? Procedure Note Brittny Lacey MD - 09/01/2018 PROCEDURE: XR ELBOW 3+ VW LEFT- History: pain, injury COMPARISON: None. FINDINGS: A 4 view exam demonstrates a suspected nondisplaced fracture of the medial ulna seen on the frontal view. No other osseous abnormalities are identified. No significant joint effusion is evident. IMPRESSION: Findings suggesting a nondisplaced fracture of the medial ulna seen on the frontal view. Clinical correlation with site of pain is recommended. This report was finalized on 09/01/2018 1:39 PM by Brittny Lacey M.D.. us Rashard Moody PA-C IMG DIAGNOSTIC ANURAG GING ORDERABLES Final Result * PA APPLICATION LONG ARM SPLINT SHOULDER HAND, PA APPLICATION CAST SHOULDER HAND LONG ARM (09/01/2018 1:18 PM EST) Narrative Krissy Bowman MD - 09/01/2018 1:18 PM EST Rashard Moody PA-C ? 09/01/2018 ??2:08 PM Splint - Cast - Strapping Date/Time: 09/01/2018 2:05 PM Performed by: Rashard Moody PA-C Authorized by: Krissy Bowman MD Consent: ??Consent obtained: ??Verbal ??Consent given by: ??Patient ??Alternatives discussed: ??No treatment Pre-procedure details: ??Sensation: ??Normal Procedure details: ??Laterality: ??Left ??Location: ??Elbow ??Elbow: ??L elbow ??Strapping: no ?Cast type: ??Long arm ??Splint type: ??Long arm ??Supplies: ??Ortho-Glass Post-procedure details: ??Pain: ??Unchanged ??Sensation: ??Normal ??Patient tolerance of procedure: ??Tolerated well, no immediate complications us Krissy Bowman MD PROCEDURE/MINOR SURGICA L ORDERABLES Final Result documented in this encounter Visit Diagnoses Diagnosis Closed fracture of proximal end of ulna without additional fracture- Primary documented in this encounter Administered Medications Inactive Administered Medications - up to 3 most recent administrations Medication Order MAR Action Action Date Dose Rate Site acetaminophen (TYLENOL) tablet 1,000 mg 1,000 mg, Oral, Once, On Tue09/01/18 at 1326, For 1 dose, Do not exceed 4 grams of acetaminophen in a 24 hr period. If given for pain, use the following pain scale: Mild Pain = Pain Score of 1-3, CPOT 1-2 Moderate Pain = Pain Score of 4-6, CPOT 3-4 Severe Pain = Pain Score of 7-10, CPOT 5-8 Given 09/01/2018 1:27 PM EST 1,000 mg documented in this encounter Active and Recently Administered Medications Times are shown in EST. Scheduled Medication Order 08/30/2018 08/31/2018 09/01/2018 acetaminophen (TYLENOL) tablet 1,000 mg (COMPLETED) 1,000 mg, Oral, Once, On Tue09/01/18 at 1326, For 1 dose, Do not exceed 4 grams of acetaminophen in a 24 hr period. If given for pain, use the following pain scale: Mild Pain = Pain Score of 1-3, CPOT 1-2 Moderate Pain = Pain Score of 4-6, CPOT 3-4 Severe Pain = Pain Score of 7-10, CPOT 5-8 1327 (Given - Provid er: Svitlana Temple RN) documented in this encounter
--- OUTSIDE RECORDS SUMMARY | 2024-05-30 08:36 | XMS_ITS | Encounter Summary ---
[facility] Address [address] [place] [address] Care Team Providers Care Line Repairer Name Role Phone Unavailable Primary Care Provider Unavailabl e Encounter Details Date Type Department Care Team (Late st Contact Info) Description 08/28/2018 9:40 AM EST Lab [facility] [address] [place] [address] Chronic kidney disease, stage IV [...] Procedure Name Priority Date/Time Associated Diagnosis Comments VITAMIN D,25-HYDROXY Routine 08/28/2018 9:39 AM EST Chronic kidney disease, stage IV (severe) RENAL FUNCTION PANEL Routine 08/28/2018 9:39 AM EST Chronic kidney disease, stage IV (severe) CBC AND DIFFERENTIAL Routine 08/28/2018 9:39 AM EST Chronic kidney disease, stage IV (severe) URINALYSIS, MICROSCOPIC ONLY Routine 08/28/2018 9:39 AM EST Chronic kidney disease, stage IV (severe) IRON PROFILEC Routine 08/28/2018 9:39 AM EST Chronic kidney disease, stage IV (severe) URINALYSIS AND MICROSCOPIC Routine 08/28/2018 9:39 AM EST Chronic kidney disease, stage IV (severe) URINALYSIS WITHOUT MICROSCOPIC (NO CULTURE) Routine 08/28/2018 9:39 AM EST Chronic kidney disease, stage IV (severe) URINE CULTURE Routine 08/28/2018 9:39 AM EST Chronic kidney disease, stage IV (severe) PTH, INTACT Routine 08/28/2018 9:39 AM EST Chronic kidney disease, stage IV (severe) FERRITIN Routine 08/28/2018 9:39 AM EST Chronic kidney disease, stage IV (severe) documented in this encounter Results * (ABNORMAL) Urinalysis, Microscopic Only - Urine, Clean Catch (08/28/2018 9:39 AM EST) RBC, UA 0-2(A) None Seen /HPF 08/28/2018 10:13 AM [facility] WBC, UA 0-2(A) None Seen /HPF 08/28/2018 10:13 AM EST [facility] Bacteria, UA Trace(A) None Seen /HPF 08/28/2018 10:13 AM [facility] Squamous Epithelial Cells, UA 0-2 None Seen, 0-2 /HPF 08/28/2018 10:13 AM EST [facility] Hyaline Casts, UA None Seen None Seen /LPF 08/28/2018 10:13 AM [facility] Methodology Manual Light Microscopy 08/28/2018 10:13 AM [facility] Urine Urine specimen collection, clean catch / Unknown Collection / Unknown 08/28/2018 9:39 AM EST 08/28/2018 9:57 AM EST us Mukul Stevens MD URINE ORDERABLES Final Result [facility]
[address] [place] [address], [place] [phone] * (ABNORMAL) Urinalysis without microscopic (no culture) - Urine, Clean Catch (08/28/2018 9:39 AM EST) Color, UA Yellow Yellow, Straw 08/28/2018 10:04 AM [facility] Appearance, UA Clear Clear 08/28/2018 10:04 AM [facility] pH, UA 7.0 5.0 - 8.0 08/28/2018 10:04 AM [facility] Specific [place], UA 1.015 1.005 - 1.030 08/28/2018 10:04 AM [facility] Glucose, UA 100 mg/dL (Trace)(A) Negative 08/28/2018 10:04 AM [facility] Ketones, UA Negative Negative 08/28/2018 10:04 AM [facility] Bilirubin, UA Negative Negative 08/28/2018 10:04 AM [facility] Blood, UA Trace(A) Negative 08/28/2018 10:04 AM [facility] Protein, UA 100 mg/dL (2+)(A) Negative 08/28/2018 10:04 AM [facility] Leuk Esterase, UA Negative Negative 08/28/2018 10:04 AM [facility] Nitrite, UA Negative Negative 08/28/2018 10:04 AM [facility] Urobilinogen, UA 0.2 E.U./dL 0.2 - 1.0 E.U./dL 08/28/2018 10:04 AM [facility] Urine Urine specimen collection, clean catch / Unknown Collection / Unknown 08/28/2018 9:39 AM EST 08/28/2018 9:57 AM EST Mukul Stevens MD URINE ORDERABLES Final Result [facility]
[address] [place] [address], [place] [phone] * (ABNORMAL) PTH, Intact (08/28/2018 9:39 AM EST) PTH, Intact 210(H) 15 - 65 pg/mL 08/29/2018 2:14 PM EST [facility] Blood Venipuncture / Unknown 08/28/2018 9:39 AM EST 08/28/2018 9:58 AM EST Narrative [facility] - 08/29/2018 2:14 PM EST Performed at: ?? - Lab[address] ??[id number] Office Rn: Jacob Whaley PhD, Phone: ??[phone] us Mukul Stevens MD LAB BLOOD ORDERABLES F inal Result Performing Organization Address City/[facility]/[place] [address], * Ferritin (08/28/2018 9:39 AM EST) Pathologist [facility] Ferritin 54.20 6.24 - 137.00 ng/mL 08/28/2018 11:12 AM EST [facility] Blood Venipuncture / Unknown 08/28/2018 9:39 AM EST 08/28/2018 9:58 AM EST us Mukul Stevens MD LAB BLOOD ORDERABLES F inal Result [facility]
[address] [place] [address], * Urine Culture - Urine, Urine, Clean Catch (08/28/2018 9:39 AM EST) Pathologist [facility] Urine Culture No growth KIRA 08/30/2018 7:40 AM EST [facility] Urine Urine specimen collection, clean catch / Unknown Collection / Unknown 08/28/2018 9:39 AM EST 08/28/2018 9:57 AM EST Mukul Stevens MD MICROBIOLOGY - GENERAL ORDERABLES Final Result Performing Organization Address City/[facility]/ZIP Co de Phone Number [facility]
[address] [place] [address], [place] [phone] * Iron Profile (08/28/2018 9:39 AM EST) Iron 48 37 - 181 mcg/dL 08/28/2018 11:12 AM EST [facility] TIBC 419 261 - 497 mcg/dL 08/28/2018 11:12 AM EST [facility] Iron Saturation (TSAT) 11 11 - 46 % 08/28/2018 11:12 AM EST [facility] Blood Venipuncture / Unknown 08/28/2018 9:39 AM EST 08/28/2018 9:58 AM EST Mukul Stevens MD LAB BLOOD ORDERABLES F inal Result [facility]
[address] [place] [address], [place] [phone] documented in this encounter Visit Diagnoses Diagnosis Chronic kidney disease, stage IV (severe) Chronic kidney disease, Stage IV (severe) documented in this encounter
--- OUTSIDE RECORDS SUMMARY | 2024-05-30 08:36 | XMS_ITS | Encounter Summary ---
Author Organization [facility] Address [address] [place] [address] Care Team Providers Care Living Manager Name Role Phone Unavailable Primary Care Provider Unavailabl e Reason for Visit * Hospital - Outpatient (Emergency) - Closed Specialty Diagnoses / Procedures Referred By Contac t Referred To Contact Radiology Diagnoses Hematuria, unspecified type Procedures US renal bilateral Thomas, Fabiola Villafuerte MD [address] [place] [phone] Phone: tel: fax: Referral ID Status Reason Start Date Expiration Date Visits Re quested Visits Authorized [id number] Closed 09/25/2018 09/25/2019 1 1 Encounter Details Date Type Department Care Team (Latest Contact Info) Description 09/25/2018 2:45 PM EDT - 09/25/2018 11:59 PM EDT Hospital Encounter [address] [phone] Discharge Disposition: Home or Self [...] Name Priority Date/Time Associated Diagnosis Comments US RENAL BILATERAL STAT 09/25/2018 3: 23 PM EDT Hematuria, unspecified type documented in this encounter Results * US renal bilateral (09/25/2018 3:23 PM EDT) Anatomical Region Laterality Modality Body, Abdomen Ultrasound 09/25/2018 4:19 PM EDT Impressions 09/26/2018 7:42 AM EDT No acute renal abnormality. This exam does not explain the patient's reported history of hematuria. This report was finalized on 09/26/2018 7:42 AM by Surendra Pike MD. Narrative 09/26/2018 7:42 AM EDT RENAL ULTRASOUND INDICATION: Hematuria. FINDINGS: The right kidney measures 9.3 cm in length and the left measures 8.8 cm. No hydronephrosis or cyst. No perinephric fluid collection. No obvious mass. Procedure Note Janak Pike MD - 09/26/2018 RENAL ULTRASOUND INDICATION: Hematuria. FINDINGS: The right kidney measures 9.3 cm in length and the left measures 8.8 cm. No hydronephrosis or cyst. No perinephric fluid collection. No obvious mass. IMPRESSION: No acute renal abnormality. This exam does not explain the patient's reported history of hematuria. This report was finalized on 09/26/2018 7:42 AM by Surendra Pike MD. us Fabiola Guzman MD IMG US ORDERABLES Final Resu lt documented in this encounter Visit Diagnoses Not on filedocumented in this encounter
--- OUTSIDE RECORDS SUMMARY | 2024-05-30 08:36 | XMS_ITS | Encounter Summary ---
[facility] [address] [place] [id number] Care Team Providers Care Guide Travel Name Role Phone Unavailable Primary Care Provider Unavailabl e Reason for Visit * Reason Comments Arm Pain Encounter Details Date Type Department Care Team (Late st Contact Info) Description 09/04/2018 7:45 PM EST - 09/04/2018 8:23 PM EST Emergency [facility] [address] [place] [phone] Krissy Bowman MD Arm fracture, left, sequela (Primary Dx) Discharge [...] Sign Reading Time Taken Comments Blood Pressure 144/99 09/04/2018 7:21 PM EST Pulse 90 09/04/2018 7:21 PM EST Temperature 36.8 ??C (98.2 ??F) 09/04/2018 7:21 PM ES T Respiratory Rate 18 09/04/2018 7:21 PM EST Oxygen Saturation 99% 09/04/2018 7:21 PM EST Inhaled Oxygen Concentration - - Weight 99.4 kg (219 lb 3.2 oz) 09/04/2018 7:21 P M EST Height 165.1 cm (5' 5 ) 09/04/2018 7:21 PM EST Body Mass Index 36.48 09/04/2018 7:21 PM EST documented in this encounter Discharge Instructions * Discharge Instructions* Pearl Wakefield APRN - 09/04/2018 8:07 PM EST Follow up with orthopedics as instructed documented in this encounter Medications at Time [...] ED Notes * Pearl Wakefield APRN - 09/04/2018 7:58 PM EST Subjective History of Present Illness Is a 28-year-old female who comes in today wanting her splint evaluated. She reports that she felt like that the splint moved down and was out of place and she was afraid that this client may not be supporting her elbow fracture. She denies any increase in pain. Review of Systems Constitutional: Negative. HENT: Negative. [...] Psych: Mood and affect are appropriate Splint intact, no edema, fingers with great cap refill. Denies any paraesthesia, +distal pulses. Procedures ED Course MDM Number of Diagnoses or Management Options Diagnosis management comments: Reviewed films with patient. I have advised her to follow up with ortho. She is agreeable to this plan of care. Amount and/or Complexity of Data Reviewed Review and summarize past medical records: yes Discuss the patient with other providers: yes Risk of Complications, Morbidity, and/or Mortality Presenting problems: minimal Diagnostic procedures: minimal Management options: minimal Final diagnoses: Arm fracture, left, sequela Pearl Wakefield APRN 09/04/182006 Cosigned by Krissy Bowman MD at 09/04/2018 8:09 PM EST Associated attestation - Krissy Bowman MD - 09/04/2018 8:09 PM EST For this patient encounter, I reviewed the ENROBING MACHINE OPERATOR or PA documentation, treatment plan, and medical decision making. Krissy Bowman MD 09/04/2018 8:09 PM documented in this encounter Plan of Treatment Not on file documented as of this encounter Visit Diagnoses Diagnosis Arm fracture, left, sequela- Primary documented in this encounter
--- OUTSIDE RECORDS SUMMARY | 2024-05-30 08:36 | XMS_ITS | Encounter Summary ---
[facility] Address [address] [place] [phone] Care Team Providers Care Water Mechanic Name Role Phone Unavailable Primary Care Provider Unavailabl e Reason for Visit * Reason Comments Knee Pain Encounter Details Date Type Department Care Team (Late st Contact Info) Description 09/22/2018 8:20 PM EST - 09/22/2018 9:30 PM EST Emergency [facility] EM[facility] [address] [place] [phone] Dominik Rizo MD [address] [place] [address] Sprain of left knee, unspecified ligament, initial encounter (Primary Dx); Arthralgia of left knee Discharge Disposition: Home or [...] Sign Reading Time Taken Comments Blood Pressure 158/108 09/22/2018 9:10 PM EST Pulse 93 09/22/2018 9:10 PM EST Temperature 36.9 ??C (98.4 ??F) 09/22/2018 7:45 PM ES T Respiratory Rate 20 09/22/2018 9:10 PM EST Oxygen Saturation 99% 09/22/2018 9:10 PM EST Inhaled Oxygen Concentration - - Weight 97.5 kg (215 lb) 09/22/2018 7:45 PM EST Height 165.1 cm (5' 5 ) 09/22/2018 7:45 PM EST Body Mass Index 35.78 09/22/2018 7:45 PM EST documented in this encounter Discharge Instructions * Discharge Instructions* Tiago Dinh PA-C - 09/22/2018 9:07 PM EST Cold compresses every few hours for 20-30 minutes for the first 24 hours, then switch to warm compresses in a similar fashion for 24 hours. No weightbearing for 3 days, then weightbearing with crutches as tolerated. Anticipate full weightbearing by 1 week. Follow-up with Dr. Valles for orthopedic evaluation. Return to the emergency department immediately if any change or worsening of symptoms. * Attachments The following attachments cannot be sent through Care Everywhere. * Knee Sprain Adult (Guyanese) documented in this encounter Medications at Time [...] ED Notes * Tiago Dinh PA-C - 09/22/2018 9:08 PM EST Subjective 28-year-old female presents emergency department planing of left knee pain after slip fall on wet grass, states her leg was bent underneath her as she fell, with her toes touching the back of shoulder . Pain with weightbearing, no paresis or paresthesias. She is an insulin-dependent diabetic with end-stage renal disease, smoker, primary care provider is Dr. Guzman. Denies drug allergies. She denies other symptoms or injuries at this time. Knee Pain Location: Knee Time since incident: 2 hours Injury: no Knee location: L knee Pain details: Quality: Dull and throbbing Severity: Moderate Onset quality: Sudden Duration: 2 hours Timing: Constant Progression: Waxing and waning Chronicity: New Dislocation: no Foreign body present: No foreign bodies Tetanus status: Up to date Prior injury to area: No Relieved by: Nothing Worsened by: Nothing Ineffective treatments: None tried Associated symptoms: stiffness and swelling Associated symptoms: no back pain, no fatigue, no fever and no neck pain Review of Systems Constitutional: Negative for chills, fatigue and fever. Respiratory: Negative for cough and shortness of breath. Cardiovascular: Negative for chest pain. Gastrointestinal: Negative for abdominal pain. Genitourinary: Negative for difficulty urinating, dysuria and hematuria. Musculoskeletal: Positive for arthralgias, myalgias and stiffness. Negative for back pain, neck pain and neck stiffness. Per HPI Skin: Negative for wound. Neurological: Negative for syncope, numbness and headaches. All other systems reviewed and are [...] deviation present. No thyromegaly present. Cardiovascular: Normal rate. Pulmonary/Chest: Effort normal. No stridor. No respiratory distress. Abdominal: Soft. She exhibits no distension. Musculoskeletal: She exhibits tenderness. She exhibits no edema or deformity. No obvious deformity bony tenderness crepitus or step-off. Diffuse tenderness, no true joint line tenderness. No obvious effusion. No warmth erythema or lymphangitic streaking. Ligamentous laxity is difficult to assess due to patient's pain level and guarding. Pulses are intact distally. Neurological: She is alert and oriented to [...] ED Course MDM Final diagnoses: Sprain of left knee, unspecified ligament, initial encounter Arthralgia of left knee Tiago Dinh PA-C 09/22/[id number] Cosigned by Dominik Rizo MD at 09/22/2018 9:42 PM EST Associated attestation - Dominik Rizo MD - 09/22/2018 9:42 PM EST For this patient encounter, I reviewed the COMMUNITY SERVICE DIRECTOR or PA documentation, treatment plan, and medical decision making. Dominik Rizo MD 09/22/2018 9:42 PM documented in this encounter Plan of Treatment Not on file documented as of this encounter Procedures Procedure Name Priority Date/Time Associated Diagnosis Comments XR KNEE 3 VW LEFT STAT 09/22/2018 8:4 2 PM EST documented in this encounter Results * XR Knee 3 View Left (09/22/2018 8:42 PM EST) Anatomical Region Laterality Modality Lower Extremities, Knee Left [facility] 09/23/2018 8:55 AM EST Impressions 09/23/2018 8:57 AM EST Mild soft tissue edema. This report was finalized on 09/23/2018 8:57 AM by Surendra Pike MD. Narrative 09/23/2018 8:57 AM EST LEFT KNEE INDICATION: Twisting injury. Fall. FINDINGS: Four views of the left knee without comparison demonstrate minimal soft tissue edema. No radiopaque foreign body. No joint effusion, dislocation, bony destruction or fracture. Procedure Note Janak Pike MD - 09/23/2018 LEFT KNEE INDICATION: Twisting injury. Fall. FINDINGS: Four views of the left knee without comparison demonstrate minimal soft tissue edema. No radiopaque foreign body. No joint effusion, dislocation, bony destruction or fracture. IMPRESSION: Mild soft tissue edema. This report was finalized on 09/23/2018 8:57 AM by Surendra Pike MD. Tiago Dinh [facility] O RDERABLES Final Result documented in this encounter Visit Diagnoses Diagnosis Sprain of left knee, unspecified ligament, initial encounter- Primary Arthralgia of left knee documented in this encounter Administered Medications Inactive Administered Medications - up to 3 most recent administrations Medication Order MAR Action Action Date Dose Rate Site HYDROcodone-acetaminophen (NORCO) 5-325 MG per tablet 1 tablet 1 tablet, Oral, Once, On Tue09/22/18 at 2055, For 1 dose, {WILLIS} Do not exceed 4 grams of acetaminophen in a 24 hr period. If given for pain, use the following pain scale: Mild Pain = Pain Score of 1-3, CPOT 1-2 Moderate Pain = Pain Score of 4-6, CPOT 3-4 Severe Pain = Pain Score of 7-10, CPOT 5-8 Given 09/22/2018 9:02 PM EST 1 tablet documented in this encounter Active and Recently Administered Medications Times are shown in EST. Scheduled Medication Order 09/20/2018 09/21/2018 09/22/2018 HYDROcodone-acetaminophen (NORCO) 5-325 MG per tablet 1 tablet (COMPLETED) 1 tablet, Oral, Once, On Tue09/22/18 at 2055, For 1 dose, {WILLIS} Do not exceed 4 grams of acetaminophen in a 24 hr period. If given for pain, use the following pain scale: Mild Pain = Pain Score of 1-3, CPOT 1-2 Moderate Pain = Pain Score of 4-6, CPOT 3-4 Severe Pain = Pain Score of 7-10, CPOT 5-8 2101 (Given - Provid er: Silvia Mcmahan RN) documented in this encounter
--- OUTSIDE RECORDS SUMMARY | 2024-05-30 08:36 | XMS_ITS | Encounter Summary ---
Author Organization [facility] Address [address] [place] [id number] Care Team Providers Care Chief Operator Reformer Name Role Phone Unavailable Primary Care Provider Unavailabl e Reason for Visit * Reason Comments Dysuria Encounter Details Date Type Department Care Team (Late st Contact Info) Description 12/21/2018 1:55 AM EDT - 12/21/2018 3:13 AM EDT Emergency [facility] [address] [place] [phone] Jaquan Arenas, Urinary tract infection without hematuria, site unspecified (Primary Dx); Chronic renal failure, stage 4 (severe) Discharge Disposition: Home or Self Care [...] Sign Reading Time Taken Comments Blood Pressure 154/101 12/21/2018 1:30 AM EDT Pulse 87 12/21/2018 1:30 AM EDT Temperature 36.7 ??C (98.1 ??F) 12/21/2018 1:30 AM ED T Respiratory Rate 18 12/21/2018 1:30 AM EDT Oxygen Saturation 97% 12/21/2018 1:30 AM EDT Inhaled Oxygen Concentration - - Weight 100 kg (221 lb) 12/21/2018 1:30 AM EDT Height 165.1 cm (5' 5 ) 12/21/2018 1:30 AM EDT Body Mass Index 36.78 12/21/2018 1:30 AM EDT documented in this encounter Discharge Instructions * Attachments The following attachments cannot be sent through Care Everywhere. * Urinary Tract Infection Adult (Libyan) * Chronic Kidney Disease Adult (Libyan) documented in this encounter Medications at Time [...] this encounter ED Notes * Jaquan Arenas, DO - 12/21/2018 3:13 AM EDT Subjective History of Present Illness Chief Complaint: Urinary symptoms and left low back pain History of Present Illness: Patient presents with suspected urinary tract infection, states that she has a chronic renal insufficiency and had a recent lab panel for anticipation for renal transplant. Patient denies any fever or vomiting Onset: Yesterday Duration: Persistent Exacerbating / Alleviating factors: Worse with urination ASSOCIATED SYMPTOMS: None Nurses Notes reviewed and agree, including vitals, allergies, social history and prior medical history. REVIEW OF SYSTEMS: All systems reviewed and not pertinent unless noted. Positive for: Lower urinary symptoms and left low back pain Negative for: Flank pain, vomiting, shaking chills, fever Review of Systems Past 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: Diagnosis [...] SECTION 10/17/2012 ??? SECTION ??? INDUCED 2006 [facility] History reviewed. No pertinent [...] Narrative Merged History Encounter Objective Physical Exam EXAM: GENERAL APPEARANCE: Well developed, well nourished, in no acute distress. Obese. VITAL SIGNS: per nursing, reviewed and noted SKIN: no rashes, ulcerations or petechiae. Head: Normocephalic, atraumatic. EYES: perrla. EOMI. ENT: TM clear, posterior pharynx patent. LUNGS: normal breath sounds. No retractions. CARDIOVASCULAR: regular rate and rhythm, no murmurs. Good Peripheral pulses. ABDOMEN: Soft, nontender, normal bowel sounds. No hernia. No ascites. MUSCULOSKELETAL: No tenderness. Full ROM. Strength and tone normal. NEUROLOGIC: Alert, oriented x 3. No gross deficits. NECK: Supple, symmetric. No tenderness, no masses. Full ROM Back: full rom, no paraspinal spasm. Mild tenderness palpation above the left SI joint. : Mild suprapubic bladder tenderness, no distention, no CVA tenderness Procedures No ER procedures were performed ED Course ED Course as of Dec 21 045 Emma Dec 21, 2018 0300 WBC, UA: (!) 3-5 [PF] 0300 Bacteria, UA: (!) Trace [PF] 0302 WBC, UA: (!) 3-5 [PF] 0302 RBC, UA: (!) 3-5 [PF] 0302 Bacteria, UA: (!) Trace [PF] 0302 Blood, UA: (!) Trace [PF] 0302 Glucose: (!) 250 mg/dL (1+) [PF] ED Course User Index [PF] Jaquan Arenas, MDM Patient declined any IV labs here. Is nontoxic, urinalysis suggestive of mild a urinary tract infection. Patient denies any chance of . Patient will be discharged home stable condition with Omnicef as well as Pyridium. Return precautions were provided including fever, Rigors, intractable vomiting. Final diagnoses: Urinary tract infection without hematuria, site unspecified Chronic renal failure, stage 4 (severe) (CMS/[facility]) Jaquan Arenas DO 12/21/18 0458 * Roxann Sharpe RN - 12/21/2018 2:35 AM EDT Pt refused labs and fluids at this time, MD notified. PT up to restroom for urine sample Roxann Sharpe, HERNÁN 12/21/18 0235 Roxann Sharpe RN 12/21/18 0235 documented in this encounter Plan of Treatment Not on file documented as of this encounter Procedures Procedure Name Priority Date/Time Associated Diagnosis Comments URINALYSIS, MICROSCOPIC ONLY STAT 12/21/2018 2:38 AM EDT URINALYSIS W/ CULTURE IF INDICATED STAT 12/21/2018 2:38 AM EDT documented in this encounter Results * (ABNORMAL) Urinalysis, Microscopic Only - Urine, Clean Catch (12/21/2018 2:38 AM EDT) RBC, UA 3-5(A) None Seen /HPF 12/21/2018 2:56 AM EDT [facility] WBC, UA 3-5(A) None Seen /HPF 12/21/2018 2:56 AM EDT [facility] Bacteria, UA Trace(A) None Seen /HPF 12/21/2018 2:56 AM EDT [facility] Squamous Epithelial Cells, UA 3-6(A) None Seen, 0-2 /HPF 12/21/2018 2:56 AM EDT [facility] Hyaline Casts, UA None Seen None Seen /LPF 12/21/2018 2:56 AM EDT [facility] WBC Clumps, UA Small/1+ None Seen /HPF 12/21/2018 2:56 AM EDT [facility] Methodology Manual Light Microscopy 12/21/2018 2:56 AM EDT [facility] Urine Urine specimen collection, clean catch / Unknown Collection / Unknown 12/21/2018 2:38 AM EDT 12/21/2018 2:45 AM EDT Jaquan Arenas DO URINE ORDERABLES Final Result [facility]
[address] [place] [address], * (ABNORMAL) Urinalysis With Culture If Indicated - Urine, Clean Catch (12/21/2018 2:38 AM EDT) Color, UA Yellow Yellow, Straw 12/21/2018 2:48 AM EDT [facility] Appearance, UA Clear Clear 12/21/2018 2:48 AM EDT [facility] pH, UA 6.5 5.0 - 8.0 12/21/2018 2:48 AM EDT [facility] Specific [place], UA 1.013 1.005 - 1.030 12/21/2018 2:48 AM EDT [facility] Glucose, UA 250 mg/dL (1+)(A) Negative 12/21/2018 2:48 AM EDT [facility] Ketones, UA Negative Negative 12/21/2018 2:48 AM EDT [facility] Bilirubin, UA Negative Negative 12/21/2018 2:48 AM EDT [facility] Blood, UA Trace(A) Negative 12/21/2018 2:48 AM EDT [facility] Protein, UA >=300 mg/dL (3+)(A) Negative 12/21/2018 2:48 AM EDT [facility] Leuk Esterase, UA Negative Negative 12/21/2018 2:48 AM EDT [facility] Nitrite, UA Negative Negative 12/21/2018 2:48 AM EDT [facility] Urobilinogen, UA 0.2 E.U./dL 0.2 - 1.0 E.U./dL 12/21/2018 2:48 AM EDT [facility] Urine Urine specimen collection, clean catch / Unknown Collection / Unknown 12/21/2018 2:38 AM EDT 12/21/2018 2:45 AM EDT Jaquan Arenas DO URINE ORDERABLES Final Result [facility]
[address] [place] [id number], documented in this encounter Visit Diagnoses Diagnosis Urinary tract infection without hematuria, site unspecified- Primary Chronic renal failure, stage 4 (severe) documented in this encounter Administered Medications Inactive Administered Medications - up to 3 most recent administrations Medication Order MAR Action Action Date Dose Rate Site cefdinir (OMNICEF) capsule 300 mg 300 mg, Oral, Once, On Emma 12/21/18 at 0305, For 1 dose, Avoid taking antacids, iron, or dairy products within 2 hours of medication., Indications: Urinary Tract InfectionIndications:Urinary Tract Infection Given 12/21/2018 3:11 AM EDT 300 mg phenazopyridine (PYRIDIUM) tablet 200 mg 200 mg, Oral, Once, On Emma 12/21/18 at 0305, For 1 dose, Swallow whole; do not crush, split, or chew. Given 12/21/2018 3:11 AM EDT 200 mg documented in this encounter Active and Recently Administered Medications Times are shown in EDT. Scheduled Medication Order 12/19/2018 12/20/2018 12/21/2018 cefdinir (OMNICEF) capsule 300 mg (COMPLETED) 300 mg, Oral, Once, On Emma 12/21/18 at 0305, For 1 dose, Avoid taking antacids, iron, or dairy products within 2 hours of medication., Indications: Urinary Tract Infection 0311 (Given - Provid er: Roxann Sharpe RN) phenazopyridine (PYRIDIUM) tablet 200 mg (COMPLETED) 200 mg, Oral, Once, On Emma 19 at 0305, For 1 dose, Swallow whole; do not crush, split, or chew. 0311 (Given - Provid er: Roxann Sharpe RN) documented in this encounter
--- OUTSIDE RECORDS SUMMARY | 2024-05-30 08:36 | XMS_ITS | Encounter Summary ---
Author Organization [facility] Address [address] [place] [address] Care Team Providers Care Ripsaw Grader Name Role Phone Unavailable Primary Care Provider Unavailabl e Reason for Visit * (Emergency) - Closed Specialty Diagnoses / Procedures Referred By Contac t Referred To Contact Radiology Diagnoses Low back pain without sciatica, unspecified back pain laterality, unspecified chronicity Procedures XR Spine Lumbar 2 or 3 View XR spine lumbar 4+ vw Fabiola Guzman MD [address] [place] [phone] Phone: tel: fax: Referral ID Status Reason Start Date Expiration Date Visits Re quested Visits Authorized [id number] Closed 09/25/2018 09/25/2019 1 1 Encounter Details Date Type Department Care Team (Late st Contact Info) Description 09/25/2018 1:30 PM EDT - 09/25/2018 11:59 PM EDT Hospital Encounter [facility] [address] [place] [phone] Ming Low MD [address] [facility] [address] [place] [address] Discharge Disposition: Home or Self Care Social [...] SPINE LUMBAR 2 OR 3 VW STAT 09/25/2018 2:20 PM EDT Low back pain without sciatica, unspecified back pain laterality, unspecified chronicity documented in this encounter Results * XR Spine Lumbar 2 or 3 View (09/25/2018 2:20 PM EDT) Anatomical Region Laterality Modality Spine, L-spine N/A Radiographic Kim ging 09/25/2018 2:30 PM EDT Impressions 09/25/2018 2:40 PM EDT No acute process or significant change. Consider MRI if symptoms persist. This report was finalized on 09/25/2018 2:40 PM by Surendra Pike MD. Narrative 09/25/2018 2:40 PM EDT LUMBAR SPINE INDICATION: Low back pain. FINDINGS: 3 views of the lumbar spine compared with 02/06/2018. Minimal thoracolumbar curve convex to the right is unchanged. Lower thoracic Schmorl's nodes are stable. No compression deformity. No subluxation. Disc spaces are relatively preserved. No bony destruction or fracture. Procedure Note Janak Pike MD - 09/25/2018 LUMBAR SPINE INDICATION: Low back pain. FINDINGS: 3 views of the lumbar spine compared with 02/06/2018. Minimal thoracolumbar curve convex to the right is unchanged. Lower thoracic Schmorl's nodes are stable. No compression deformity. No subluxation. Disc spaces are relatively preserved. No bony destruction or fracture. IMPRESSION: No acute process or significant change. Consider MRI if symptoms persist. This report was finalized on 09/25/2018 2:40 PM by Surendra Pike MD. Fabiola Guzman MD IMG DIAGNOSTIC IMAGING ORDER BERTIN Final Result documented in this encounter Visit Diagnoses Not on filedocumented in this encounter
--- OUTSIDE RECORDS SUMMARY | 2024-05-30 08:36 | XMS_ITS | Encounter Summary ---
Author Organization [facility] Address [address] [place] [id number] Care Team Providers Care Healthcare Sales Representative Name Role Phone Unavailable Primary Care Provider Unavailabl e Reason for Visit * Reason Comments Hand Pain Encounter Details Date Type Department Care Team (Late st Contact Info) Description 09/02/2018 6:31 PM EST - 09/02/2018 7:10 PM EST Emergency [facility] [address] [place] [phone] Mickey Cerda MD [address] [place] [address] Closed fracture of proximal end of left ulna, unspecified fracture morphology, initial encounter (Primary Dx) Discharge Disposition: Home [...] Sign Reading Time Taken Comments Blood Pressure 132/95 09/02/2018 6:28 PM EST Pulse 97 09/02/2018 6:28 PM EST Temperature 37.1 ??C (98.7 ??F) 09/02/2018 6:28 PM ES T Respiratory Rate 16 09/02/2018 6:28 PM EST Oxygen Saturation 97% 09/02/2018 6:28 PM EST Inhaled Oxygen Concentration - - Weight 97.7 kg (215 lb 6.4 oz) 09/02/2018 6:28 P M EST Height 165.1 cm (5' 5 ) 09/02/2018 6:28 PM EST Body Mass Index 35.84 09/02/2018 6:28 PM EST documented in this encounter Discharge Instructions * Discharge Instructions* Rashard Moody PA-C - 09/02/2018 7:04 PM EST You were prescribed 5mg Hydrocodone tablets yesterday and instructed to take one every 6 hours. Youmay take up to 2 tablets every 6 hours as needed for pain however understand that this will result in you running out of your medication sooner. * Attachments The following attachments cannot be sent through Care Everywhere. * Ulnar Fracture (Belizean) documented in this encounter Medications at [...] ED Notes * Rashard Moody PA-C - 09/02/2018 6:49 PM EST Subjective Pt here last night and dx with proximal ulna fx. orthoglass splint placed. She states splint rubbing on hand and also the sling she was given was broken. Called orthopedics and has appt for .No complications otherwise, just requesting splint adjustment and new sling. Review of Systems Musculoskeletal: Pain in left elbow (unchanged) and splint irritating left hand. All other systems reviewed and are negative. [...] She appears well-developed and well-nourished. No distress. HENT: Head: Normocephalic and atraumatic. Cardiovascular: Normal rate and regular rhythm. Pulmonary/Chest: Effort normal. Musculoskeletal: ttp left antecubital fossa, no significant swelling/edema. 2+ radial pulse on left. Normal sensation, no signs of compartment syndrome. Pt states pain is no worse. Neurological: She is alert. No sensory deficit. Skin: Capillary refill takes less than 2 seconds. No rash noted. No injury to left hand where splint was irritating her Psychiatric: She has a normal mood and affect. Her behavior is normal. Judgment and thought contentnormal. Procedures ED Course MDM Final diagnoses: Closed fracture of proximal end of left ulna, unspecified fracture morphology, initial encounter Rashard Moody PA-C 09/02/18 1855 Cosigned by Mickey Cerda MD at 09/03/2018 7:19 AM EST Associated attestation - Mickey Cerda MD - 09/03/2018 7:19 AM EST For this patient encounter, I reviewed the IMPORTER OR EXPORTER or PA documentation, treatment plan, and medical decision making. Mickey Cerda MD 09/03/2018 7:19 AM documented in this encounter Plan of Treatment Not on file documented as of this encounter Visit Diagnoses Diagnosis Closed fracture of proximal end of left ulna, unspecified fracture morphology, initial encounter- Primary documented in this encounter
--- OUTSIDE RECORDS SUMMARY | 2024-05-30 08:36 | XMS_ITS | Encounter Summary ---
Author Organization [facility] Address [address] [place] [address] Care Team Providers Care Automobile Service Advisor Name Role Phone Unavailable Primary Care Provider Unavailabl e Reason for Visit * (Emergency) - Closed Specialty Diagnoses / Procedures Referred By Contac t Referred To Contact Radiology Diagnoses Left knee pain, unspecified chronicity Procedures XR knee 3 vw left Thomas, Fabiola Villafuerte MD [address] [place] [phone] Phone: tel: fax: Referral ID Status Reason Start Date Expiration Date Visits Re quested Visits Authorized [id number] Closed 09/25/2018 09/25/2019 1 1 Encounter Details Date Type Department Care Team (Latest Contact Info) Description 09/25/2018 2:05 PM EDT - 09/25/2018 11:59 PM EDT Hospital Encounter [facility] [address] [place] [phone] Discharge Disposition: Home or Self [...] Comments XR KNEE 3 VW LEFT STAT 09/25/2018 2:2 0 PM EDT Left knee pain, unspecified chronicity documented in this encounter Results * XR knee 3 vw left (09/25/2018 2:20 PM EDT) Anatomical Region Laterality Modality Lower Extremities, Knee Left Radiogra [facility] 09/25/2018 2:34 PM EDT Impressions 09/25/2018 2:40 PM EDT No acute bony abnormality. Consider MRI if symptoms persist. This report was finalized on 09/25/2018 2:40 PM by Surendra Pike MD. Narrative 09/25/2018 2:40 PM EDT LEFT KNEE INDICATION: Knee pain. FINDINGS: ??Three views compared with 02/15/2018. No dislocation or bony destruction. Joint spaces are preserved. Tiny effusion is not excluded but favored to be artifactual. Procedure Note Janak Pike MD - 09/25/2018 LEFT KNEE INDICATION: Knee pain. FINDINGS: Three views compared with 02/15/2018. No dislocation or bony destruction. Joint spaces are preserved. Tiny effusion is not excluded but favored to be artifactual. IMPRESSION: No acute bony abnormality. Consider MRI if symptoms persist. This report was finalized on 09/25/2018 2:40 PM by Surendra Pike MD. Fabiola Guzman MD IMG DIAGNOSTIC IMAGING ORDER BERTIN Final Result documented in this encounter Visit Diagnoses Not on filedocumented in this encounter
--- OUTSIDE RECORDS SUMMARY | 2024-05-30 08:37 | XMS_ITS | Encounter Summary ---
Author Organization [facility] Address [address] [place] [address] Care Team Providers Care Landscaper Helper Name Role Phone Unavailable Primary Care Provider Unavailabl e Encounter Details Date Type Department Care Team (Late st Contact Info) Description 06/15/2018 Readmission Management [facility] [address] [place] [phone] Beth Mckeon RN Social History Tobacco Use Types Packs/Day Years [...] as of this encounter Miscellaneous Notes * Outreach Note - Beth Mckeon RN - 06/15/2018 3:24 AM EST Prep Survey Responses Facility patient discharged from? [facility] Is patient eligible? Yes Discharge diagnosis Acute renal failure, unspecified acute renal failure type CT guided renal biopsy Does the patient have one of the following disease processes/diagnoses(primary or secondary)? Other Does the patient have Home health ordered? No Is there a DME ordered? No Prep survey completed? Yes Beth Mckeon RN documented in this encounter Plan of Treatment Not on file documented as of this encounter Visit Diagnoses Not on filedocumented in this encounter
--- OUTSIDE RECORDS SUMMARY | 2024-05-30 08:37 | XMS_ITS | Encounter Summary ---
[facility] Address [address] [place] [address] Care Team Providers Care Rubber Cutter Name Role Phone Unavailable Primary Care Provider Unavailabl e Encounter Details Date Type Department Care Team (Late st Contact Info) Description 06/14/2018 Telephone [facility] [address] [place] [phone] Ibrahima Talamantes MD Social History Tobacco Use Types Packs/Day Years [...]
--- OUTSIDE RECORDS SUMMARY | 2024-05-30 08:37 | XMS_ITS | Encounter Summary ---
Author Organization [facility] Address [address] [place] [id number] Care Team Providers Care Director Title Name Role Phone Unavailable Primary Care Provider Unavailabl e Reason for Referral * Hospital - Outpatient (Routine) - Closed Specialty Diagnoses / Procedures Referred By Contac t Referred To Contact Radiology Diagnoses Type 2 diabetes mellitus with ESRD (end-stage renal disease) Procedures US Renal Bilateral Chacha Gama DO Phone: tel: fax: Referral ID Status Reason Start Date Expiration Date Visits Re quested Visits Authorized [id number] Closed 04/07/2018 04/07/2019 1 1 Reason for Visit * Hospital - Outpatient (Routine) - Closed Specialty Diagnoses / Procedures Referred By Contel burt Referred To Contact Radiology Diagnoses Type 2 diabetes mellitus with ESRD (end-stage renal disease) Procedures US Renal Bilateral Chacha Gama DO Phone: tel: fax: Referral ID Status Reason Start Date Expiration Date Visits Re quested Visits Authorized [id number] Closed 04/07/2018 04/07/2019 1 1 Encounter Details Date Type Department Care Team (Late st Contact Info) Description 04/13/2018 12:00 PM EDT - 04/13/2018 11:59 PM EDT Hospital Encounter [facility] [address] [place] [phone] Chacha Gama DO [address] [place] [address] Type 2 diabetes mellitus with ESRD (end-stage renal disease) Discharge Disposition: Home or Self Care Social [...] TAKE 1 TABLET EVERY DAY 0 12/23/2015 lisinopril (PRINIVIL,ZESTRIL) 10 MG tablet Takes 20mg daily 0 12/23/2015 ondansetron ODT (ZOFRAN-ODT) 4 MG disintegrating tablet Take 1 tablet by mouth Every 6 (Six) Hours As Needed for Nausea or Vomiting. 20 tablet 03/14/2018 amLODIPine (NORVASC) 10 MG tablet Take 10 mg by mouth Daily. 8 amoxicillin (AMOXIL) 500 MG capsule Take 1,000 mg by mouth 2 (Two) Times a Day. 8 aspirin 81 MG chewable tablet Chew 81 mg Daily. 8 atorvastatin (LIPITOR) 10 MG tablet Take 10 mg by mouth Daily. 8 cetirizine (zyrTEC) 10 MG tablet Take 1 tablet by mouth Daily. 20 tablet 03/14/2018 8 citalopram (CeleXA) 10 MG tablet TAKE 2 TABLETS BY MOUTH DAILY 0 12/23/2015 8 cyclobenzaprine (FLEXERIL) 5 MG tablet Take 5 mg by mouth 2 (Two) Times a Day As Needed for Muscle Spasms. 8 DULoxetine (CYMBALTA) 60 MG capsule Take 60 mg by mouth 2 (Two) Times a Day. 8 fenofibrate (TRICOR) 145 MG tablet Take 160 mg by mouth Every Other Day. 3 gabapentin (NEURONTIN) 100 MG capsule Take 100 mg by mouth 3 (Three) Times a Day. Takes in between the Neurontin 800 mg. 8 gabapentin (NEURONTIN) 300 MG capsule BID 0 12/23/2015 3 gabapentin (NEURONTIN) 800 MG tablet Take 800 mg by mouth 3 (Three) Times a Day. 8 HUMALOG 100 UNIT/ML injection USE DIRECTED PER INSULIN PUMP THERAPY.MAXIMUM DAILY DOSE OF 150 UNITS 0 12/23/2015 9 insulin lispro (humaLOG) 100 UNIT/ML injection Inject under the skin 3 (Three) Times a Day Before Meals. Sliding scale. Reports of 9 injections per day. 8 lisinopril (PRINIVIL,ZESTRIL) 20 MG tablet Take 20 mg by mouth Daily. 8 loratadine (CLARITIN) 10 MG tablet Take 10 mg by mouth. 1/2 daily as needed 8 loratadine (CLARITIN) 10 MG tablet Take 10 mg by mouth Daily. 8 magnesium oxide (MAGOX) 400 (241.3 MG) MG tablet tablet TAKE 1 TABLET EVERY DAY 0 12/23/2015 8 pramipexole (MIRAPEX) 0.125 MG tablet TAKE 1 TABLET EACH NIGHT AT BEDTIME 0 12/23/2015 8 traMADol (ULTRAM) 50 MG tablet Take 50 mg by mouth Every 6 (Six) Hours As Needed for Moderate Pain . 8 documented as of this encounter Plan of Treatment Not on file documented as of this encounter Procedures Procedure Name Priority Date/Time Associated Diagnosis Comments US RENAL BILATERAL Routine 04/13/2018 12 :40 PM EDT Type 2 diabetes mellitus with ESRD (end-stage renal disease) documented in this encounter Results * US Renal Bilateral (04/13/2018 12:40 PM EDT) Anatomical Region Laterality Modality Body, Abdomen Ultrasound 04/13/2018 12:5 0 PM EDT Impressions 04/13/2018 12:50 PM EDT Normal renal ultrasound. This report was finalized on 04/13/2018 12:50 PM by Brittny Lacey M.D.. Narrative 04/13/2018 12:50 PM EDT PROCEDURE: US RENAL BILATERAL- HISTORY: CKD; E11.22-Type 2 diabetes mellitus with diabetic chronic kidney disease; N18.6-End stage renal disease PROCEDURE: Ultrasound images of the kidneys were obtained. FINDINGS:. ?? The kidneys are normal in size and echogenicity with the right kidney measuring 9.7 cm and the left kidney measuring 9.4 cm. There is no cystic or solid mass. There is no hydronephrosis. Procedure Note Brittny Lacey MD - 04/13/2018 PROCEDURE: US RENAL BILATERAL- HISTORY: CKD; E11.22-Type 2 diabetes mellitus with diabetic chronic kidney disease; N18.6-End stage renal disease PROCEDURE: Ultrasound images of the kidneys were obtained. FINDINGS:. The kidneys are normal in size and echogenicity with the right kidney measuring 9.7 cm and the left kidney measuring 9.4 cm. There is no cystic or solid mass. There is no hydronephrosis. IMPRESSION: Normal renal ultrasound. This report was finalized on 04/13/2018 12:50 PM by Brittny Lacey M.D.. us Chacha Gama DO G US ORDERABLES Amy l Result documented in this encounter Visit Diagnoses Diagnosis Type 2 diabetes mellitus with ESRD (end-stage renal disease) documented in this encounter
--- OUTSIDE RECORDS SUMMARY | 2024-05-30 08:37 | XMS_ITS | Encounter Summary ---
Author Organization [facility] Address [address] [id number] Care Team Providers Care Range Mechanic Name Role Phone Unavailable Primary Care Provider Unavailabl e Reason for Referral * Diagnostic Imaging (Routine) - Closed Specialty Diagnoses / Procedures Referred By Contac t Referred To Contact Radiology Diagnoses Acute renal failure, unspecified acute renal failure type Procedures CT Needle Biopsy Kidney Renal Ibrahima Talamantes MD [address] [address] Phone: tel: Referral ID Status Reason Start Date Expiration Date Visits Re quested Visits Authorized [id number] Closed 05/22/2018 05/22/2019 1 1 Reason for Visit * Auth/Cert Specialty Diagnoses / Procedures Referred By Contac t Referred To Contact Diagnoses Acute renal failure, unspecified acute renal failure type Acute renal failure, unspecified acute renal failure type Procedures CT NEEDLE BIOPSY KIDNEY RENAL Referral ID Status Reason Start Date Expiration Date Visits Re quested Visits Authorized [id number] 1 1 Encounter Details Date Type Department Care Team (Latest Contact Info) Description 06/13/2018 8:21 AM EST - 06/14/2018 12:52 PM EST Hospital Encounter [address] [id number] Ibrahima Talamantes MD Acute renal failure, unspecified acute renal failure type Discharge Disposition: Home or Self Care [...] Sign Reading Time Taken Comments Blood Pressure 121/77 06/14/2018 8:19 AM EST Pulse 92 06/14/2018 8:19 AM EST Temperature 36.4 ??C (97.6 ??F) 06/14/2018 8:19 AM ES T Respiratory Rate 18 06/14/2018 8:19 AM EST Oxygen Saturation 99% 06/13/2018 1:27 PM EST Inhaled Oxygen Concentration - - Weight 90.7 kg (200 lb) 06/13/2018 7:35 AM EST Height 165.1 cm (5' 5 ) 06/13/2018 7:35 AM EST Body Mass Index 33.28 06/13/2018 7:35 AM EST documented in this encounter Discharge Summaries * Adina Sands MD - 06/14/2018 12:13 PM EST Date of Discharge: 06/14/2018 Discharge Diagnosis: Protienuria Presenting Problem/History of Present Illness Acute renal failure, unspecified acute renal failure type (CMS/HCC) [N17.9] Acute renal failure, unspecified acute renal failure type (CMS/HCC) [N17.9] Hospital Course Patient is a 27 y.o. female presented for elective renal biopsy. She tolerated procedure well. No complication. She had hyperkalemia and was given dose of kayexalate and lisinopril dose was put on hold. She will be discharged today to home in stable condition. She will be on low K diet and lisinopril dose will be lowered. Procedures Performed CT guided renal biopsy 06/13 1402 Note By: Adina Sands MD Consults: Consults No orders found for last 30 day(s). Pertinent Test Results: labs: CBC , BMP Condition on Discharge: Stable. Vital Signs Temp: [97.5 ??F (36.4 ??C)-98.3 ??F (36.8 ??C)] 97.6 ??F (36.4 ??C) Heart Rate: [81-103] 92 Resp: [18-20] 18 BP: (108-129)/(62-90) 121/77 Physical Exam: General Appearance: Alert, cooperative, in no acute distress Head: Normocephalic, without obvious abnormality, atraumatic Eyes: Lids and lashes normal, conjunctivae and sclerae normal, no icterus, no pallor, corneas clear, PERRLA Neck: No adenopathy, supple, trachea midline, no thyromegaly, no carotid bruit, no JVD Lungs: Clear to auscultation,respirations regular, even and unlabored Heart: Regular rhythm and normal rate, normal S1 and S2, no murmur, no gallop, no rub, no click Abdomen: Normal bowel sounds, no masses, no organomegaly, soft non-tender, non- distended, no guarding, no rebound tenderness Extremities: Moves all extremities well, no edema, no cyanosis, no redness Neurologic: Cranial nerves 2 - 12 grossly intact, sensation intact, DTR present and equal bilaterally Discharge Disposition Home or Self Care Discharge Medications Discharge Medications New Medications Instructions Start Date sodium bicarbonate 650 MG tablet 1,300 mg, Oral, 2 Times Daily Changes to Medications Instructions Start Date atorvastatin 40 MG tablet Commonly known as: LIPITOR What changed: Another medication with the same name was removed. Continue taking this medication, and follow the directions you see here. TAKE 1 TABLET EVERY DAY gabapentin 300 MG capsule Commonly known as: NEURONTIN What changed: Another medication with the same name was removed. Continue taking this medication, and follow the directions you see here. BID HUMALOG 100 UNIT/ML injection Generic drug: insulin lispro What changed: Another medication with the same name was removed. Continue taking this medication, and follow the directions you see here. USE DIRECTED PER INSULIN PUMP THERAPY.MAXIMUM DAILY DOSE OF 150 UNITS lisinopril 10 MG tablet Commonly known as: PRINIVIL,ZESTRIL What changed: Another medication with the same name was removed. Continue taking this medication, and follow the directions you see here. TAKE 1 TABLET EVERY DAY Continue These Medications Instructions Start Date fenofibrate 145 MG tablet Commonly known as: TRICOR 160 mg, Oral, Every Other Day ondansetron ODT 4 MG disintegrating tablet Commonly known as: ZOFRAN-ODT 4 mg, Oral, Every 6 Hours PRN Stop These Medications acetaminophen 500 MG tablet Commonly known as: TYLENOL amLODIPine 10 MG tablet Commonly known as: NORVASC aspirin 81 MG chewable tablet cetirizine 10 MG tablet Commonly known as: zyrTEC citalopram 10 MG tablet Commonly known as: CeleXA CLARITIN 10 MG tablet Generic drug: loratadine cyclobenzaprine 5 MG tablet Commonly known as: FLEXERIL DULoxetine 60 MG capsule Commonly known as: CYMBALTA ibuprofen 600 MG tablet Commonly known as: ADVIL,MOTRIN loratadine 10 MG tablet Commonly known as: CLARITIN magnesium oxide 400 (241.3 Mg) MG tablet tablet Commonly known as: MAGOX pramipexole 0.125 MG tablet Commonly known as: MIRAPEX traMADol 50 MG tablet Commonly known as: ULTRAM Discharge Diet: Activity at Discharge: Follow-up Appointments Future Appointments Date Time Provider Department Center 06/19/2018 10:00 AM Ritika Antoine PA-C [facility] None Test Results Pending at Discharge Order Current Status Tissue Pathology Exam In process Adina Sands MD 06/14/18 12:13 PM Time: Discharge 35 min documented in this encounter Discharge Instructions * Discharge Instructions* Adina Sands MD - 06/14/2018 12:12 PM EST Do not take aspirin, Nsaids or any blood thinner until your appointment with [facility] Do not lift heavy wt. * Discharge Instr - Activity* Anna Leo RN - 06/14/2018 12:21 PM EST As tolerated * Discharge Instr - Diet* Anna Leo RN - 06/14/2018 12:22 PM EST As tolerated, diabetic renal diet documented in this encounter Medications at Time [...] mouth Every Other Day. 3 gabapentin (NEURONTIN) 300 MG capsule BID 0 12/23/2015 3 HUMALOG 100 UNIT/ML injection USE DIRECTED PER INSULIN PUMP THERAPY.MAXIMU M DAILY DOSE OF 150 UNITS 0 12/23/2015 9 documented as of this encounter Progress Notes * Odette Watkins RN - 06/14/2018 12:25 PM EST Discharge Planning Assessment [facility] Patient Name: Crystal Archer Today's Date: 06/14/2018 Admit Date: 06/13/2018 Discharge Needs Assessment Row Name 06/14/18 3608 Living Environment Lives With child(karlo), dependent;significant other Name(s) of Who Lives With Patient Laurent Goins Current Living Arrangements home/apartment/condo Primary Care Provided by self Provides Primary Care For child(karlo) Family Caregiver if Needed significant other Quality of Family Relationships involved;helpful;supportive Able to Return to Prior Arrangements yes Living Arrangement Comments Lives with fiance and children in Mobile home with 6 steps to front door. No difficulty entering home Resource/Environmental Concerns Resource/Environmental Concerns none Transportation Concerns car, none Transition Planning Patient/Family Anticipates Transition to home with family Patient/Family Anticipated Services at Transition none Transportation Anticipated family or friend will provide Discharge Needs Assessment Readmission Within the Last 30 Days no previous admission in last 30 days Concerns to be Addressed no discharge needs identified Equipment Currently Used at Home none Anticipated Changes Related to Illness none Equipment Needed After Discharge none Discharge Plan Row Name 06/14/18 1224 Plan Plan Plan is home with Fiance in private auto Patient/Family in Agreement with Plan yes Plan Comments Plan is home with no needs Final Discharge Disposition Code 01 - home or self-care Final Note Home with no needs Destination No service coordination in this encounter. Durable Medical Equipment No service coordination in this encounter. Dialysis/Infusion No service coordination in this encounter. Home Medical Care No service coordination in this encounter. Community Resources No service coordination in this encounter. Expected Discharge Date and Time Expected Discharge Date Expected Discharge Time Jun 14, 2018 Demographic Summary Row Name 06/14/18 1218 General Information Admission Type observation Arrived From operating room Referral Source admission list Reason for Consult discharge planning Functional Status Row Name 06/14/18 1219 Functional Status Usual Activity Tolerance excellent Current Activity Tolerance good Functional Status Comments Independent with all ADL. Functional Status, IADL Medications independent Meal Preparation independent Housekeeping independent Laundry independent Shopping independent Psychosocial No documentation. Abuse/Neglect No documentation. Legal No documentation. Substance Abuse No documentation. Patient Forms No documentation. Odette Watkins RN documented in this encounter H&P Notes * Adina Sands MD - 06/13/2018 1:59 PM EST Patient Care Team: Fabiola Guzman MD as PCP - General (Family Medicine) Chief complaint Proteinuria Subjective This is 27 year old female with CKD and proteinuria presented for elective renal biopsy. She deniesany fever ,chills, rigors, headache, nausea vomiting or hematuria. No further complaints. Review of Systems Pertinent items are noted in HPI History Past 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: Diagnosis Date ??? Allergic ??? Anxiety ??? Arthritis ??? Chronic constipation ??? Depression ??? Diabetes mellitus (CMS/HCC) ??? Excessive thirst ??? H/O mammogram 2014 ??? Headache ??? Hot skin ??? Hyperlipidemia ??? Hypertension ??? Injury of back ??? Leg cramps ??? Pap smear for cervical cancer screening 11/08/2015 ??? Sinusitis ??? Urinary tract infection Past Surgical History: Procedure Laterality Date ??? SECTION 10/17/2012 ??? SECTION History reviewed. No pertinent family history. Social History Tobacco Use ??? Smoking status: Current Some Day Smoker Packs/day: 2.00 Years: 10.00 Pack years: 20.00 Types: Cigarettes Substance Use Topics ??? Alcohol use: Yes ??? Drug use: No Medications Prior to Admission Medication Sig Dispense Refill Last Dose ??? aspirin 81 MG chewable tablet Chew 81 mg Daily. Past Month at Unknown time ??? atorvastatin (LIPITOR) 40 MG tablet TAKE 1 TABLET EVERY DAY 0 06/12/2018 at Unknown time ??? gabapentin (NEURONTIN) 300 MG capsule BID 0 06/12/2018 at Unknown time ??? lisinopril (PRINIVIL,ZESTRIL) 20 MG tablet Take 20 mg by mouth Daily. 06/12/2018 at Unknown time ??? loratadine (CLARITIN) 10 MG tablet Take 10 mg by mouth. 1/2 daily as needed 06/12/2018 at Unknown time ??? acetaminophen (TYLENOL) 500 MG tablet Take 1 tablet by mouth Every 6 (Six) Hours As Needed for Mild Pain . 20 tablet 0 ??? amLODIPine (NORVASC) 10 MG tablet Take 10 mg by mouth Daily. ??? atorvastatin (LIPITOR) 10 MG tablet Take 10 mg by mouth Daily. ??? cetirizine (zyrTEC) 10 MG tablet Take 1 tablet by mouth Daily. 20 tablet 0 ??? citalopram (CeleXA) 10 MG tablet TAKE 2 TABLETS BY MOUTH DAILY 0 Not Taking ??? cyclobenzaprine (FLEXERIL) 5 MG tablet Take 5 mg by mouth 2 (Two) Times a Day As Needed for Muscle Spasms. ??? DULoxetine (CYMBALTA) 60 MG capsule Take 60 mg by mouth 2 (Two) Times a Day. ??? fenofibrate (TRICOR) 145 MG tablet Take 160 mg by mouth Every Other Day. ??? gabapentin (NEURONTIN) 100 MG capsule Take 100 mg by mouth 3 (Three) Times a Day. Takes in between the Neurontin 800 mg. ??? gabapentin (NEURONTIN) 800 MG tablet Take 800 mg by mouth 3 (Three) Times a Day. ??? HUMALOG 100 UNIT/ML injection USE DIRECTED PER INSULIN PUMP THERAPY.MAXIMUM DAILY DOSE OF 150 UNITS 0 Taking ??? ibuprofen (ADVIL,MOTRIN) 600 MG tablet Take 1 tablet by mouth Every 6 (Six) Hours As Needed forMild Pain . 20 tablet 0 ??? insulin lispro (humaLOG) 100 UNIT/ML injection Inject under the skin 3 (Three) Times a Day Before Meals. Sliding scale. Reports of 9 injections per day. ??? lisinopril (PRINIVIL,ZESTRIL) 10 MG tablet TAKE 1 TABLET EVERY DAY 0 Not Taking ??? loratadine (CLARITIN) 10 MG tablet Take 10 mg by mouth Daily. ??? magnesium oxide (MAGOX) 400 (241.3 MG) MG tablet tablet TAKE 1 TABLET EVERY DAY 0 Not Taking ??? ondansetron ODT (ZOFRAN-ODT) 4 MG disintegrating tablet Take 1 tablet by mouth Every 6 (Six) Hours As Needed for Nausea or Vomiting. 20 tablet 0 ??? pramipexole (MIRAPEX) 0.125 MG tablet TAKE 1 TABLET EACH NIGHT AT BEDTIME 0 Not Taking ??? traMADol (ULTRAM) 50 MG tablet Take 50 mg by mouth Every 6 (Six) Hours As Needed for Moderate Pain . Allergies: Patient has no known allergies. Objective Vital Signs Temp: [97.6 ??F (36.4 ??C)] 97.6 ??F (36.4 ??C) Heart Rate: [81-102] 92 Resp: [20] 20 BP: (108-118)/(60-82) 113/76 No intake/output data recorded. No intake/output data recorded. Physical Exam: General Appearance: Alert, cooperative, in no acute distress Head: Normocephalic, without obvious abnormality, atraumatic Eyes: Lids and lashes normal, conjunctivae and sclerae normal, no icterus, no pallor, corneas clear, PERRLA Ears: Ears appear intact with no abnormalities noted Throat: No oral lesions, no thrush, oral mucosa moist Neck: No adenopathy, supple, trachea midline, no thyromegaly, no carotid bruit, no JVD Lungs: Clear to auscultation,respirations regular, even and unlabored Heart: Regular rhythm and normal rate, normal S1 and S2, no murmur, no gallop, no rub, no click Breast Exam: Deferred Abdomen: Normal bowel sounds, no masses, no organomegaly, soft non-tender, non- distended, no guarding, no rebound tenderness Genitalia: Deferred Extremities: Moves all extremities well, no edema, no cyanosis, no redness Pulses: Pulses palpable and equal bilaterally Skin: No bleeding, bruising or rash Lymph nodes: No palpable adenopathy Neurologic: Cranial nerves 2 - 12 grossly intact, sensation intact, DTR present and equal bilaterally Results Review: I reviewed the patient's new clinical results. WBC WBC Date Value Ref Range Status 06/13/2018 10.16 3.50 - 10.80 10*3/mm3 Final HGB Hemoglobin Date Value Ref Range Status 06/13/2018 10.7 (L) 11.5 - 15.5 g/dL Final HCT Hematocrit Date Value Ref Range Status 06/13/2018 34.5 34.5 - 44.0 % Final Platlets No results found for: LABPLAT MCV MCV Date Value Ref Range Status 06/13/2018 92.0 80.0 - 99.0 fL Final Sodium Sodium Date Value Ref Range Status 06/13/2018 137 132 - 146 mmol/L Final Potassium Potassium Date Value Ref Range Status 06/13/2018 5.7 (H) 3.5 - 5.5 mmol/L Final Chloride Chloride Date Value Ref Range Status 06/13/2018 112 (H) 99 - 109 mmol/L Final CO2 CO2 Date Value Ref Range Status 06/13/2018 20.0 20.0 - 31.0 mmol/L Final BUN BUN Date Value Ref Range Status 06/13/2018 36 (H) 9 - 23 mg/dL Final Creatinine Creatinine Date Value Ref Range Status 06/13/2018 2.63 (H) 0.60 - 1.30 mg/dL Final Calcium Calcium Date Value Ref Range Status 06/13/2018 8.5 (L) 8.7 - 10.4 mg/dL Final PO4 No results found for: CAPO4 Albumin Albumin Date Value Ref Range Status 06/13/2018 4.15 3.20 - 4.80 g/dL Final Magnesium No results found for: MG Uric Acid No results found for: URICACID Assessment/Plan Acute renal failure (CMS/HCC) CKD Proteinuria Hyperkalemia Plan: - Renal biopsy today. - Will hold lisinopril - Dose of kayexalate. - Renal diet. I discussed the patients findings and my recommendations with patient and nursing staff. Adina Sands MD 06/13/18 1:59 PM documented in this encounter Procedure Notes * Adina Sands MD - 06/13/2018 2:02 PM EST Renal Biopsy Procedure Note Procedure: renal biopsy Pre-operative Diagnosis: Proteinuria Post-operative Diagnosis: Proteinuria Pre-Procedure Physical: The following portions of the patient's history were reviewed and updated as appropriate: allergies, current medications, past family history, past medical history, past social history, past surgicalhistory and problem list. BP 117/81 (BP Location: Right arm, Patient Position: Lying) Pulse 94 Temp 97.6 ??F (36.4 ??C) (Oral) Resp 20 Ht 165.1 cm (65 ) Wt 90.7 kg (200 lb) SpO2 99% BMI 33.28 kg/m?? Airway: normal Heart: normal S1 and S2 Lungs: clear Abdomen: soft, nontender, normal bowel sounds Mental Status: awake and alert; oriented to person, place, and time Procedure Details Informed consent was obtained for the procedure Risks of perforation, hemorrhage, adverse drug reaction and infection were discussed. Based on the pre-procedure assessment, including review of the patient's medical history, medications, allergies, and review of systems, she had been deemed to be an appropriate candidate for renal biopsy. The patient was monitored continuously with ECG tracing, pulse oximetry, blood pressure monitoring, and direct observations. The procedure was done in the radiology department following CT localization of the area for optimal renal biopsy. The patient was placed in the prone position. The skin over the left lower flank wascleansed with Prepodyne solution and locally infiltrated with 1% lidocaine. After a small opening was made in the skin with a #11 Bard-Nestor blade, a biopsy needle was proceeded over the introducer.3 passes with 3 cores of tissue obtains. Specimens: ID Type Source Tests Collected by Time A : Tissue Kidney, Left TISSUE PATHOLOGY EXAM Shannon Lockwood N 06/13/2018 1328 Complications: None; patient tolerated the procedure well. Disposition: PACU - hemodynamically stable. Condition: stable Attending Attestation: I performed the procedure. Impression: Successful liver biopsy Recommendations: 1. Await biopsy results 2. May use lortab for pain. documented in this encounter Consult Notes * Maria A Mejia RN - 06/14/2018 9:53 AM EST Met with Ms. Archer for diabetes education. She states she's had her pump for 6 years, and doesn'thave any questions. She states she changed her site on 06/13/18, understands and agrees to comply with the contract. Discussed her current A1c of 10.6 and complications associated with an elevated A1c. Ms. Archer states she is interested in talking much, unless I am discharging her. She was eatingbreakfast and I didn't visualize the pump site, however she states it's placed on her left abdomen.She states the settings haven't changed from admission and she understands she will be responsible to remove the pump for any procedures. See chart for basal rates. Ms. Archer states she boluses herself depending on the amount of food she eats, but she doesn't really count carbs. She wasn't interested in further education. Copy of contract on chart. Thanks for the consult. documented in this encounter Nursing Notes * Anna Leo RN - 06/14/2018 9:30 AM EST Problem: Patient Care Overview Goal: Plan of Care Review Outcome: Ongoing (interventions implemented as appropriate) 06/14/18 0929 Coping/Psychosocial Plan of Care Reviewed With patient Plan of Care Review Progress improving OTHER Outcome Summary Ready for DC. Sitting up in bed. Boyfriend at bedside Goal: Individualization and Mutuality Outcome: Ongoing (interventions implemented as appropriate) 06/14/18 0350 Individualization Patient Specific Interventions monitor pain q2h and PRN, give analgesics as needed Problem: Kidney Disease, Chronic/End Stage Renal Disease (Adult) Goal: Signs and Symptoms of Listed Potential Problems Will be Absent, Minimized or Managed (Kidney Disease, Chronic/End Stage Renal Disease) Outcome: Ongoing (interventions implemented as appropriate) 06/14/18 0929 Goal/Outcome Evaluation Problems Assessed (Chronic Kidney Disease/ESRD) all Problems Present (Chronic Kidney/ESRD) none * Ayah Chawla RN - 06/14/2018 3:59 AM EST Patient remains non-compliant with bedrest orders and with her diet. Patient was sitting straight up in bed with legs crossed. Patient reminded that she should be laying flat or at least less than 30degrees and should not turn side to side till 2300 or get up and walk until 0800. Patient verbalized understanding however she will not comply. Patient ate two pieces of pizza and a bag of chips thather significant other brought her. * Ayah Chawla RN - 06/14/2018 3:58 AM EST Problem: Patient Care Overview Goal: Plan of Care Review 06/14/18349 Coping/Psychosocial Plan of Care Reviewed With patient Plan of Care Review Progress no change OTHER Outcome Summary Patient not compliant with bedrest, she was sitting straight up in the bed with legs crossed early in the shift. Patient reminded that she should be laying at least <30 degress andshould not be up walking at all. Patient says that she ate two pieces of pizza and a bag of chips for dinner that her significant other brought in for her. No signs of bleeding, Hgb stable. Patient rested well through the night. Goal: Individualization and Mutuality 06/14/18 035 Individualization Patient Specific Goals (Include Timeframe) Tolerable level of pain Patient Specific Interventions monitor pain q2h and PRN, give analgesics as needed Goal: Interprofessional Rounds/Family Conf 06/14/18 035 Interdisciplinary Rounds/Family Conf Participants patient Problem: Kidney Disease, Chronic/End Stage Renal Disease (Adult) Goal: Signs and Symptoms of Listed Potential Problems Will be Absent, Minimized or Managed (Kidney Disease, Chronic/End Stage Renal Disease) 06/13/18 3037 06/14/18 035 Goal/Outcome Evaluation Problems Assessed (Chronic Kidney Disease/ESRD) -- all Problems Present (Chronic Kidney/ESRD) none -- * Leah Aldrich RN - 06/13/2018 5:51 PM EST Patient received to 210 from [facility] Awake and alert. Sitting with HOB up 60 degrees Patient aware of orders to lie flat and use bedpan but refuses to comply and requesting bedside commode. Up to commode. Patient also wants to Eat what I want to and renal diet. Silvia Zee charge operator nurse in to speakwith patient. Dr. Talamantes informed. * Leah Aldrich RN - 06/13/2018 5:32 PM EST Problem: Kidney Disease, Chronic/End Stage Renal Disease (Adult) Goal: Signs and Symptoms of Listed Potential Problems Will be Absent, Minimized or Managed (Kidney Disease, Chronic/End Stage Renal Disease) 06/13/18 1731 Goal/Outcome Evaluation Problems Assessed (Chronic Kidney Disease/ESRD) hypertension Problems Present (Chronic Kidney/ESRD) none * Leah Aldrich RN - 06/13/2018 5:31 PM EST Problem: Patient Care Overview Goal: Plan of Care Review Outcome: Ongoing (interventions implemented as appropriate) 06/13/18 1731 Coping/Psychosocial Plan of Care Reviewed With patient;significant other Plan of Care Review Progress improving * Karine Britt RN - 06/13/2018 4:13 PM EST Pt transferred to S210, report given to receiving Rn, verbalized understanding. Pt left via bed, belongings in possession, no acute distress noted, no complaints voiced. * Karine Britt RN - 06/13/2018 2:46 PM EST When entered room to administered ordered insulin & D50, pt states that she re- attatched her insulin pump and already administered 7units of regular insulin to herself via pump. Dr. Sands notified, states to proceed with orders. Medication administered as ordered. * Karine Britt RN - 06/13/2018 1:45 PM EST Pt returned post procedure, tolerated well. Dressing to left posterior back CDI, no bleeding, drainage and/or swelling noted. No acute distress noted. Will continue to monitor. * Tiki Batista RN - 06/13/2018 1:28 PM EST Renal biopsy done by Dr Sands. Pt tolerated well. Report called to Susana in [facility] * Tiki Batista RN - 06/13/2018 1:08 PM EST IVF increased to 50 ml/hour per Dr Sands documented in this encounter Miscellaneous Notes * Significant Note - Silvia Zee RN - 06/13/2018 5:08 PM EST enterprise services manager reports to room after pt began getting upset about orders. Pt upset that she has diet restrictions, Pt eats whatever she wants at home and wishes to here as well. Pt also does not wish to be on bedrest as ordered. enterprise services manager spoke to this evening to inform. states will not change orders and encourages pt to stay due to risk of bleeding. enterprise services manager spoke to pt again. Pt states understanding risk for bleeding. Pt agrees to not go all the way into bathroom but will use BSC stating she is unable to use a bedpan. enterprise services manager encourages pt to use bedpan to follow orders. Pt states will send visitor in room with her to get food for her. enterprise services manager encouraged pt to follow MD orders. Pt states will be getting up to BSC and will eat whatever she wishes. Pt does agree to BG checks, blood draws, and not walking except to pivot to BSC . Primary RN aware. documented in this encounter Plan of Treatment Not on file documented as of this encounter Procedures Procedure Name Priority Date/Time Associated Diagnosis Comments POCT GLUCOSE FINGERSTICK Routine 06/14/2018 8:20 AM EST HEMOGLOBIN Routine 06/14/2018 5:12 AM EST BASIC METABOLIC PANEL Routine 06/14/2018 5:12 AM EST POCT GLUCOSE FINGERSTICK Routine 06/13/2018 8:58 PM EST HEMOGLOBIN Routine 06/13/2018 8:15 PM EST HEMOGLOBIN Routine 06/13/2018 5:40 PM EST ECG 12-LEAD STAT 06/13/2018 4:29 PM EST POCT GLUCOSE FINGERSTICK Routine 06/13/2018 3:52 PM EST POCT GLUCOSE FINGERSTICK Routine 06/13/2018 1:[address] NEEDLE BIOPSY KIDNEY RENAL Routine 06/13/2018 1:36 PM EST Acute renal failure, unspecified acute renal failure type TISSUE PATHOLOGY EXAM Routine 06/13/2018 1:28 PM EST POCT GLUCOSE FINGERSTICK Routine 06/13/2018 12:51 PM EST POCT GLUCOSE FINGERSTICK Routine 06/13/2018 11:57 AM EST POCT GLUCOSE FINGERSTICK Routine 06/13/2018 11:45 AM EST ABORH 2ND SPECIMEN VERIFICATION Routine 06/13/2018 10:09 AM EST POCT GLUCOSE FINGERSTICK Routine 06/13/2018 9:01 AM EST APTT STAT 06/13/2018 8:57 AM EST PROTIME-INR STAT 06/13/2018 8:57 AM EST PLATELET FUNCTION TEST STAT 06/13/2018 8:57 AM EST CBC (NO DIFF) STAT 06/13/2018 8:57 AM EST TYPE AND SCREEN STAT 06/13/2018 8:57 AM EST RENAL FUNCTION PANEL STAT 06/13/2018 8:57 AM EST documented in this encounter Results * POC Glucose Once (06/14/2018 8:20 AM EST) Glucose 128 70 - 130 mg/dL 06/14/2018 8:22 AM EST [facility] Blood 06/14/2018 8:20 AM EST 06/14/2018 8:22 AM EST Ibrahima Talamantes MD POINT OF CARE TEST ORD ERABLES Final Result [facility]
[address] [place] [address], * (ABNORMAL) Hemoglobin (06/14/2018 5:12 AM EST) Hemoglobin 10.4(L) 11.5 - 15.5 g/dL 06/14/2018 5:51 AM EST [facility] Blood Venipuncture / Unknown 06/14/2018 5:12 AM EST 06/14/2018 5:32 AM EST [facility] Sands MD LAB BLOOD ORDERABLES Amy l Result [facility]
[address] [place] [address], * (ABNORMAL) Basic Metabolic Panel (06/14/2018 5:12 AM EST) Glucose 178(H) 70 - 100 mg/dL 06/14/2018 6:07 AM EST [facility] BUN 38(H) 9 - 23 mg/dL 06/14/2018 6:07 AM EST [facility] Creatinine 2.69(H) 0.60 - 1.30 mg/dL 06/14/2018 6:07 AM EST [facility] Sodium 139 132 - 146 mmol/L 06/14/2018 6:07 AM EST [facility] Potassium 5.3 3.5 - 5.5 mmol/L 06/14/2018 6:07 AM EST [facility] Chloride 115(H) 99 - 109 mmol/L 06/14/2018 6:07 AM EST [facility] CO2 18.0(L) 20.0 - 31.0 mmol/L 06/14/2018 6:07 AM EST [facility] Calcium 8.3(L) 8.7 - 10.4 mg/dL 06/14/2018 6:07 AM EST [facility] eGFR Non Amer 21(L) >60 mL/min/1.7 3 06/14/2018 6:07 AM EST [facility] BUN/Creatinine Ratio 14.1 7.0 - 25.0 06/14/2018 6:07 AM EST [facility] Anion Gap 6.0 3.0 - 11.0 mmol/L 06/14/2018 6:07 AM EST [facility] Blood Venipuncture / Unknown 06/14/2018 5:12 AM EST 06/14/2018 5:32 AM EST Narrative [facility] - 06/14/2018 6:07 AM EST National Kidney Foundation Guidelines Stage ? Description ?GFR 1 ? Normal or High ? 90+ 2 ? Mild decrease ?60-89 3 ? Moderate decrease ??30-59 4 ? Severe decrease ?15-29 5 ? Kidney failure ? <15 The MDRD GFR formula is only valid for adults with stable renal function between ages 18 and 70. Adina Sands MD LAB BLOOD ORDERABLES Amy l Result Performing Organization Address [facility] de Phone Number [facility]
[address] [place] [address], * (ABNORMAL) POC Glucose Once (06/13/2018 8:58 PM EST) Glucose 211(H) 70 - 130 mg/dL 06/13/2018 9:10 PM EST [facility] Blood 06/13/2018 8:58 PM EST 06/13/2018 9:10 PM EST Ibrahima Talamantes MD POINT OF CARE TEST ORD ERABLES Final Result Performing Organization Address [facility] de Phone Number [facility]
[address] [place] [address], * (ABNORMAL) Hemoglobin (06/13/2018 8:15 PM EST) Hemoglobin 9.9(L) 11.5 - 15.5 g/dL 06/13/2018 8:22 PM EST [facility] Blood Venipuncture / Unknown 06/13/2018 8:15 PM EST 06/13/2018 8:20 PM EST Adina Sands MD LAB BLOOD ORDERABLES Amy l Result Performing Organization Address [facility]/ZIP Co de Phone Number [facility]
[address] [place] [address], * (ABNORMAL) Hemoglobin (06/13/2018 5:40 PM EST) Hemoglobin 10.1(L) 11.5 - 15.5 g/dL 06/13/2018 6:06 PM EST [facility] Blood Venipuncture / Unknown 06/13/2018 5:40 PM EST 06/13/2018 6:01 PM EST Adina Sands MD LAB BLOOD ORDERABLES Amy l Result [facility]
[address] [place] [address], * ECG 12 Lead (06/13/2018 4:29 PM EST) 06/13/2018 4:29 PM EST 06/13/2018 6:41 PM EST Narrative ECG - 06/13/2018 6:41 PM EST Test Reason : Hyperkalemia Blood Pressure : / mmHG Vent. Rate : 084 BPM ? Atrial Rate : 084 BPM ?? P-R Int : 142 ms ?QRS Dur : 084 ms ?QT Int : 364 ms ? P-R-T Axes : 054 051 035 degrees ?? QTc Int : 430 ms Normal sinus rhythm with sinus arrhythmia Normal ECG No previous ECGs available Confirmed by IRIS ??CHAD SANFORD ([id number]) on 06/13/2018 6:41:24 PM Referred By: ? Confirmed By:CHAD SIMMONS ?? Procedure Note Chad Simmons MD - 06/13/2018 Test Reason : Hyperkalemia Blood Pressure : / mmHG Vent. Rate : 084 BPM Atrial Rate : 084 BPM P-R Int : 142 ms QRS Dur : 084 ms QT Int : 364 ms P-R-T Axes : 054 051 035 degrees QTc Int : 430 ms Normal sinus rhythm with sinus arrhythmia Normal ECG No previous ECGs available Confirmed by CHAD SIMMONS MD ([id number]) on 06/13/2018 6:41:24 PM Referred By: Confirmed By:CHAD SIMMONS MD Adina Sands MD ECG ORDERABLES Final Res ult Performing Organization Address [facility] Co de Phone Number ECG * (ABNORMAL) POC Glucose Once (06/13/2018 3:52 PM EST) Glucose 204(H) 70 - 130 mg/dL 06/13/2018 3:54 PM EST [facility] Blood 06/13/2018 3:52 PM EST 06/13/2018 3:54 PM EST Ibrahima Talamantes MD POINT OF CARE TEST ORD ERABLES Final Result Performing Organization Address [facility] de Phone Number [facility]
[address] [place] [address], * POC Glucose Once (06/13/2018 1:49 PM EST) Glucose 84 70 - 130 mg/dL 06/13/2018 1:54 PM EST [facility] Blood 06/13/2018 1:49 PM EST 06/13/2018 1:54 PM EST Ibrahima Talamantes MD POINT OF CARE TEST ORD ERABLES Final Result Performing Organization Address [facility] de Phone Number [facility]
[address] [place] [address], * CT Needle Biopsy Kidney Renal (06/13/2018 1:36 PM EST) Anatomical Region Laterality Modality Abdomen Computed Tomogra phy, Other, Other 06/13/2018 3:38 PM EST Impressions 06/13/2018 3:49 PM EST Biopsy lower pole of the left kidney was performed with a minimal postoperative retroperitoneal hematoma. D: ??06/13/2018 E: ??06/13/2018 This report was finalized on 06/13/2018 3:[address] Mukul Valles MD. Narrative 06/13/2018 3:49 PM EST EXAMINATION: CT NEEDLE BIOPSY KIDNEY RENAL- 06/13/2018 INDICATION: N17.9-Acute kidney failure, unspecified ? TECHNIQUE: Patient was placed in the prone position. Using CT guidance and local anesthesia, Dr. Talamantes biopsied the lower pole of the left kidney. The radiation dose reduction device was turned on for each scan per the ALARA (As Low as Reasonably Achievable) protocol. COMPARISON: NONE FINDINGS: Following biopsy there is a small, not unexpected, retroperitoneal hematoma. The patient was returned to his room in satisfactory condition. Procedure Note Bulmaro Valles MD - 06/13/2018 EXAMINATION: CT NEEDLE BIOPSY KIDNEY RENAL- 06/13/2018 INDICATION: N17.9-Acute kidney failure, unspecified TECHNIQUE: Patient was placed in the prone position. Using CT guidance and local anesthesia, Dr. Talamanets biopsied the lower pole of the left kidney. The radiation dose reduction device was turned on for each scan per the ALARA (As Low as Reasonably Achievable) protocol. COMPARISON: NONE FINDINGS: Following biopsy there is a small, not unexpected, retroperitoneal hematoma. The patient was returned to his room in satisfactory condition. IMPRESSION: Biopsy lower pole of the left kidney was performed with a minimal postoperative retroperitoneal hematoma. E: 06/13/2018 This report was finalized on 06/13/2018 3:[address] Mukul Valles MD. Ibrahima Talamantes MD IMG CT ORDERABLES Amy l Result * Tissue Pathology Exam (06/13/2018 1:28 PM EST) Case Report Surgical Pathology Report ? Case: [id number] ? Authorizing Provider: ??Albin, Ibrahima Lepe, ?? Collected: ? 06/13/2018 01:28 PM ? MD ? Ordering Location: ? [facility] [place] ?? Received: ?06/13/2018 01:52 PM ? 4D ? Pathologist: ? Cb Cohn, ? Specimen: ?Kidney, Left ? 06/29/2018 12:05 PM EST [facility] Kidney Biopsy Report, Addendum Testing performed at outside laboratory. See scanned report. 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 Patchy numerous eosinophils in the early atrophic area. Testing performed at outside laboratory. See scanned report. 06/29/2018 12:05 PM EST [facility] Tissue Specimen from kidney / Unknown Collection / Unknown 06/13/2018 1:28 PM EST 06/13/2018 1:52 PM EST us Ibrahima Talamantes MD PATHOLOGY/CYTOLOGY ORD ERABLES Edited Result - Final Performing Organization Address City/[facility]/ZIP Co de Phone Number [facility]
[address] [place] [address], * (ABNORMAL) POC Glucose Once (06/13/2018 12:51 PM EST) Glucose 65(L) 70 - 130 mg/dL 06/13/2018 12:52 PM EST [facility] Blood 06/13/2018 12:5 1 PM EST 06/13/2018 12:52 PM EST Ibrahima Talamantes MD POINT OF CARE TEST ORD ERABLES Final Result Performing Organization Address City/[facility]/ZIP Co de Phone Number [facility]
[address] [place] [address], * POC Glucose Once (06/13/2018 11:57 AM EST) Glucose 81 70 - 130 mg/dL 06/13/2018 12:01 PM EST [facility] Blood 06/13/2018 11:5 7 AM EST 06/13/2018 12:01 PM EST Ibrahima Talamantes MD POINT OF CARE TEST ORD ERABLES Final Result Performing Organization Address [facility]/ZIP Co de Phone Number [facility]
[address] [place] [address], * (ABNORMAL) POC Glucose Once (06/13/2018 11:45 AM EST) Glucose 47(LL) 70 - 130 mg/dL 06/13/2018 11:53 AM EST [facility] Blood 06/13/2018 11:4 5 AM EST 06/13/2018 11:53 AM EST us Ibrahima Talamantes MD POINT OF CARE TEST ORD ERABLES Final Result Performing Organization Address [facility] Co de Phone Number [facility]
[address] [place] [address], * ABO RH Specimen Verification (06/13/2018 10:09 AM EST) ABO Type A 06/13/2018 10:30 AM EST [facility] RH type Positive 06/13/2018 10:30 AM EST [facility] Blood Venipuncture / Unknown 06/13/2018 10:09 AM EST 06/13/2018 10:13 AM EST us Ibrahima Talamantes MD BLOOD BANK TEST ORDERA BLES Final Result Performing Organization Address City/[facility] Co de Phone Number [facility]
[address] [place] [address], * (ABNORMAL) POC Glucose Once (06/13/2018 9:01 AM EST) Glucose 148(H) 70 - 130 mg/dL 06/13/2018 9:03 AM EST [facility] Blood 06/13/2018 9:01 AM EST 06/13/2018 9:03 AM EST us Ibrahima Talamantes MD POINT OF CARE TEST ORD ERABLES Final Result Performing Organization Address [facility] Co de Phone Number [facility]
[address] [place] [address], * Platelet Function Test (06/13/2018 8:57 AM EST) Pathologist [facility] Collagen/Epine phrine 121 72 - 192 Seconds 06/13/2018 9:56 AM EST [facility] Collagen/ADP 86 54 - 123 Seconds 06/13/2018 9:56 AM EST [facility] Blood Venipuncture / Unknown 06/13/2018 8:57 AM EST 06/13/2018 9:27 AM EST Narrative [facility] - 06/13/2018 9:56 AM EST PFA Interpretation Norm ADP / Norm EPI: Normal Plt Function ? Norm ADP / Abn EPI: Drug Induced Platelet Dysfunction, most commonly seen with Aspirin ? Abn ADP / Abn EPI: Abnormal Platelet Function, recommend further evaluation Ibrahima Talamantes MD LAB BLOOD ORDERABLES F inal Result Performing Organization Address [facility] de Phone Number [facility]
[address] [place] [address], * Type & Screen (06/13/2018 8:57 AM EST) [facility] ABO Type A 06/13/2018 10:23 AM EST [facility] RH type Positive 06/13/2018 10:23 AM EST [facility] Antibody Screen Negative 06/13/2018 10:23 AM [facility] T&S Expiration Date 06/16/2018 11:59:59 PM 06/13/2018 10:23 AM [facility] Blood Venipuncture / Unknown 06/13/2018 8:57 AM EST 06/13/2018 9:23 AM EST Ibrahima Talamantes MD BLOOD BANK TEST ORDERA BLES Edited Result - Final [facility]
[address] [place] [address], * (ABNORMAL) Renal Function Panel (06/13/2018 8:57 AM EST) Glucose 140(H) 70 - 100 mg/dL 06/13/2018 9:54 AM [facility] BUN 36(H) 9 - 23 mg/dL 06/13/2018 9:54 AM [facility] Creatinine 2.63(H) 0.60 - 1.30 mg/dL 06/13/2018 9:54 AM [facility] Sodium 137 132 - 146 mmol/L 06/13/2018 9:54 AM [facility] Potassium 5.7(H) 3.5 - 5.5 mmol/L 06/13/2018 9:54 AM [facility] Chloride 112(H) 99 - 109 mmol/L 06/13/2018 9:54 AM [facility] CO2 20.0 20.0 - 31.0 mmol/L 06/13/2018 9:54 AM [facility] Calcium 8.5(L) 8.7 - 10.4 mg/dL 06/13/2018 9:54 AM [facility] Albumin 4.15 3.20 - 4.80 g/dL 06/13/2018 9:54 AM [facility] Phosphorus 5.0 2.4 - 5.1 mg/dL 06/13/2018 9:54 AM [facility] Anion Gap 5.0 3.0 - 11.0 mmol/L 06/13/2018 9:54 AM EST [facility] BUN/Creatinine Ratio 13.7 7.0 - 25.0 06/13/2018 9:54 AM EST [facility] eGFR Non Amer 22(L) >60 mL/min/1.7 3 06/13/2018 9:54 AM EST [facility] Blood Venipuncture / Unknown 06/13/2018 8:57 AM EST 06/13/2018 9:21 AM EST Narrative [facility] - 06/13/2018 9:54 AM EST National Kidney Foundation Guidelines Stage ? Description ?GFR 1 ? Normal or High ? 90+ 2 ? Mild decrease ?60-89 3 ? Moderate decrease ??30-59 4 ? Severe decrease ?15-29 5 ? Kidney failure ? <15 The MDRD GFR formula is only valid for adults with stable renal function between ages 18 and 70. Ibrahima Talamantes MD LAB BLOOD ORDERABLES F inal Result [facility]
[address] [place] [address], * Protime-INR (06/13/2018 8:57 AM EST) Protime 10.5 9.6 - 11.5 Seconds 06/13/2018 9:47 AM EST [facility] INR 1.00 0.91 - 1.09 06/13/2018 9:47 AM EST [facility] Blood Venipuncture / Unknown 06/13/2018 8:57 AM EST 06/13/2018 9:27 AM EST Ibrahima Talamantes MD LAB BLOOD ORDERABLES F inal Result Performing Organization Address [facility] Co de Phone Number [facility]
[address] [place] [address], * aPTT (06/13/2018 8:57 AM EST) Pathologist [facility] PTT 28.7 24.0 - 31.0 seconds 06/13/2018 9:47 AM EST [facility] Blood Venipuncture / Unknown 06/13/2018 8:57 AM EST 06/13/2018 9:27 AM EST [facility] - 06/13/2018 9:47 AM EST PTT = The equivalent PTT values for the therapeutic range of heparin levels at 0.3 to 0.5 U/ml are 55 to 70 seconds. Ibrahima Talamantes MD LAB BLOOD ORDERABLES F inal Result Performing Organization Address [facility] de Phone Number [facility]
[address] [place] [address], * (ABNORMAL) CBC (No Diff) (06/13/2018 8:57 AM EST) Pathologist [facility] WBC 10.16 3.50 - 10.80 10*3/mm3 06/13/2018 9:34 AM EST [facility] RBC 3.75(L) 3.89 - 5.14 10*6/mm3 06/13/2018 9:34 AM EST [facility] Hemoglobin 10.7(L) 11.5 - 15.5 g/dL 06/13/2018 9:34 AM EST [facility] Hematocrit 34.5 34.5 - 44.0 % 06/13/2018 9:34 AM [facility] MCV 92.0 80.0 - 99.0 fL 06/13/2018 9:34 AM EST [facility] MCH 28.5 27.0 - 31.0 pg 06/13/2018 9:34 AM EST [facility] MCHC 31.0(L) 32.0 - 36.0 g/dL 06/13/2018 9:34 AM EST [facility] RDW 12.9 11.3 - 14.5 % 06/13/2018 9:34 AM EST [facility] RDW-SD 43.4 37.0 - 54.0 fl 06/13/2018 9:34 AM EST [facility] MPV 13.0(H) 6.0 - 12.0 fL 06/13/2018 9:34 AM EST [facility] Platelets 268 150 - 450 10*3/mm3 06/13/2018 9:34 AM EST [facility] Blood Venipuncture / Unknown 06/13/2018 8:57 AM EST 06/13/2018 9:27 AM EST Ibrahima Talamantes MD LAB BLOOD ORDERABLES F inal Result [facility]
[address] [place] [address], documented in this encounter Visit Diagnoses Diagnosis Acute renal failure, unspecified acute renal failure type Acute renal failure Acute kidney failure, unspecified documented in this encounter Admitting Diagnoses Diagnosis Acute renal failure Acute kidney failure, unspecified documented in this encounter Administered Medications Inactive Administered Medications - up to 3 most recent administrations Medication Order MAR Action Action Date Dose Rate Site acetaminophen (TYLENOL) tablet 650 mg 650 mg, Oral, Every 4 Hours PRN, Mild Pain, Starting on Tue06/13/18 at 1641, Do not exceed 4 grams of acetaminophen in a 24 hr period. If given for pain, use the following pain scale: Mild Pain = Pain Score of 1-3, CPOT 1-2 Moderate Pain = Pain Score of 4-6, CPOT 3-4 Severe Pain = Pain Score of 7-10, CPOT 5-8 Given 06/13/2018 8:22 PM EST 650 mg atorvastatin (LIPITOR) tablet 40 mg 40 mg, Oral, Daily, First dose on Tue06/13/18 at 1800, Avoid grapefruit juice. Given 06/13/2018 8:27 PM EST 40 mg atropine injection 0.4 mg 0.4 mg, Intramuscular, Once, On Tue06/13/18 at 1130, For 1 dose Given 06/13/2018 12:12 PM EST 0.4 mg Left Dorsogluteal dextrose (D50W) 25 g/ 50mL Intravenous Solution 50 mL 50 mL, Intravenous, Once, On Tue06/13/18 at 1445, For 1 dose Given 06/13/2018 2:47 PM EST 50 mL dextrose 5 % and sodium chloride 0.9 % infusion 50 mL/hr, Intravenous, Continuous, Starting on Tue06/13/18 at 1630 Currently Infusing 06/13/2018 5:37 PM EST 50 mL/hr 50 mL/hr gabapentin (NEURONTIN) capsule 300 mg 300 mg, Oral, Every 12 Hours Scheduled, First dose on Tue06/13/18 at 2100, {WILLIS} Given 06/14/2018 8:53 AM EST 300 mg Given 06/13/2018 8:22 PM EST 300 mg HYDROcodone-acetaminop hen (NORCO) 5-325 MG per tablet 1 tablet 1 tablet, Oral, Every 4 Hours PRN, Moderate Pain, Starting on Tue06/13/18 at 1641, For 10 days, {WILLIS} Do not exceed 4 grams of acetaminophen in a 24 hr period. If given for pain, use the following pain scale: Mild Pain = Pain Score of 1-3, CPOT 1-2 Moderate Pain = Pain Score of 4-6, CPOT 3-4 Severe Pain = Pain Score of 7-10, CPOT 5-8 insulin patient supplied pump Subcutaneous, Continuous, Starting on Tue06/13/18 at 1700, Continue with patient managed pump., Type of Insulin: Admalog, Type of Pump: minimed 530G, Date of Last Site Changed: 06/12/2018, Location of Catheter: left arm Self Administered Via Pump 06/13/2018 6:05 PM EST Left Lower Abdomen insulin regular (humuLIN R,novoLIN R) injection 10 Units 10 Units, Intravenous, Once, On Tue06/13/18 at 1445, For 1 dose, {BKC} Caution: Look alike/sound alike drug alert{BKC} Given 06/13/2018 2:47 PM EST 10 Units meperidine (DEMEROL) injection 25 mg 25 mg, Intramuscular, Once, On Tue06/13/18 at 1130, For 1 dose, {WILLIS} If given for pain, use the following pain scale: Mild Pain = Pain Score of 1-3, CPOT 1-2 Moderate Pain = Pain Score of 4-6, CPOT 3-4 Severe Pain = Pain Score of 7-10, CPOT 5-8 Given 06/13/2018 12:14 PM EST 25 mg Left Dorsogluteal morphine injection 1 mg 1 mg, Intravenous, Every 4 Hours PRN, Moderate Pain, Starting on Tue06/13/18 at 1641, For 10 days, If given for pain, use the following pain scale: Mild Pain = Pain Score of 1-3, CPOT 1-2 Moderate Pain = Pain Score of 4-6, CPOT 3-4 Severe Pain = Pain Score of 7-10, CPOT 5-8 naloxone (NARCAN) injection 0.4 mg 0.4 mg, Intravenous, Every 5 Minutes PRN, Respiratory Depression, Starting on Tue06/13/18 at 1641, If respiratory rate is less than 8 breaths/minute or patient is difficult to arouse stop any narcotics and contact physician. Administer slow IV push. Repeat as ordered until patient's respiratory rate is greater than 12 breaths/minute. Patiromer Sorbitex Calcium pack 1 packet 1 packet (8.4 g), Oral, Once, On Tue06/13/18 at 1445, For 1 dose, Warning: The copier repair technician recommends against administering with sorbitol due to risk of intestinal necrosis. Given 06/13/2018 2:42 PM EST 1 packet [employer] Calcium pack 2 packet 2 packet (16.8 g), Oral, Once, On Tue06/14/18 at 1130, For 1 dose, Formulary sub for 30 g Kayexalate. Given 06/14/2018 12:33 PM EST 2 packets promethazine (PHENERGAN) injection 12.5 mg 12.5 mg, Intramuscular, Once, On Tue06/13/18 at 1130, For 1 dose, If giving IV, dilute dose in 20 mL NS and slow IV push over 3-5 minutes. Administer through large bore vein (not hand or wrist) through running IV line at port furthest from patient's vein. Given 06/13/2018 12:14 PM EST 12.5 mg Left Dorsogluteal sodium bicarbonate tablet 1,300 mg 1,300 mg, Oral, 2 Times Daily, First dose on Tue06/14/18 at 1100 Given 06/14/2018 12:33 PM EST 1,300 mg sodium chloride 0.9 % flush 3 mL 3 mL, Intravenous, Every 12 Hours Scheduled, First dose on Tue06/13/18 at 0900 sodium chloride 0.9 % flush 3 mL 3 mL, Intravenous, Every 12 Hours Scheduled, First dose on Tue06/13/18 at 1445 Given 06/14/2018 8:53 AM EST 3 mL Given 06/13/2018 8:24 PM EST 3 mL sodium chloride 0.9 % flush 3-10 mL 3-10 mL, Intravenous, As Needed, Line Care, Starting on Tue06/13/18 at 0750 documented in this encounter Active and Recently Administered Medications Times are shown in EST. Scheduled Medication Order 06/12/2018 06/13/2018 06/14/2018 atorvastatin (LIPITOR) tablet 40 mg 40 mg, Oral, Daily, First dose on Tue06/13/18 at 1800, Avoid grapefruit juice. 1750 (Not Given - Provider: Leah Aldrich RN - Reason: Patient/family refused)2026 (Given - Provider: Ayah Chawla RN - Comment: patient takes at night) 0856 (Not Given - Provider: Anna Leo RN - Reason: Patient/family refused) atropine injection 0.4 mg (COMPLETED) 0.4 mg, Intramuscular, Once, On Tue06/13/18 at 1130, For 1 dose 1212 (Given - Provider: Karine Britt RN) dextrose (D50W) 25 g/ 50mL Intravenous Solution 50 mL (COMPLETED)(Linked Group 1) 50 mL, Intravenous, Once, On Tue06/13/18 at 1445, For 1 dose 1447 (Given - Provider: Karine Britt RN) fenofibrate (TRICOR) tablet 48 mg 48 mg, Oral, Daily, First dose on Tue06/13/18 at 1800, Take with food., Reason for continuation of original order: Elevated triglycerides and pancreatitis 1750 (Not Given - Provider: Leah Aldrich RN - Reason: Medication not available) 0856 (Not Given - Provider: Anna Leo RN - Reason: Other - Comment: states she takes every other day) gabapentin (NEURONTIN) capsule 300 mg 300 mg, Oral, Every 12 Hours Scheduled, First dose on Tue06/13/18 at 2100, {WILLIS} 2021 (Given - Provider: Ayah Chawla RN) 0853 (Given - Provider: Anna Leo RN) insulin regular (humuLIN R,novoLIN R) injection 10 Units (COMPLETED)(Linked Group 1) 10 Units, Intravenous, Once, On Tue06/13/18 at 1445, For 1 dose, {BKC} Caution: Look alike/sound alike drug alert{BKC} 1447 (Given - Provider: Karine Britt RN) meperidine (DEMEROL) injection 25 mg (COMPLETED) 25 mg, Intramuscular, Once, On Tue06/13/18 at 1130, For 1 dose, {WILLIS} If given for pain, use the following pain scale: Mild Pain = Pain Score of 1-3, CPOT 1-2 Moderate Pain = Pain Score of 4-6, CPOT 3-4 Severe Pain = Pain Score of 7-10, CPOT 5-8 1214 (Given - Provider: Karine Britt RN) Patiromer Sorbitex Calcium pack 1 packet (COMPLETED) 1 packet (8.4 g), Oral, Once, On Tue06/13/18 at 1445, For 1 dose, Warning: The copier repair technician recommends against administering with sorbitol due to risk of intestinal necrosis. 1442 (Given - Provider: Karine Britt RN) Patiromer Sorbitex Calcium pack 2 packet (COMPLETED) 2 packet (16.8 g), Oral, Once, On Tue06/14/18 at 1130, For 1 dose, Formulary sub for 30 g Kayexalate. 1233 (Given - Provid er: Anna Leo RN) promethazine (PHENERGAN) injection 12.5 mg (COMPLETED) 12.5 mg, Intramuscular, Once, On Tue06/13/18 at 1130, For 1 dose, If giving IV, dilute dose in 20 mL NS and slow IV push over 3-5 minutes. Administer through large bore vein (not hand or wrist) through running IV line at port furthest from patient's vein. 1214 (Given - Provider: Karine Britt RN) sodium bicarbonate tablet 1,300 mg 1,300 mg, Oral, 2 Times Daily, First dose on Tue06/14/18 at 1100 1233 (Given - Provid er: Anna Leo RN) sodium chloride 0.9 % flush 3 mL 3 mL, Intravenous, Every 12 Hours Scheduled, First dose on Tue06/13/18 at 0900 1643 (Not Given - Provider: Leah Aldrich RN - Reason: Given from running infusion)2027 (Hold - Provider: Ayah Chawla RN - Reason: Other - Comment: duplicate) 0857 (Not Given - Provider: Anna Leo RN - Reason: Other - Comment: alrady scanned another flush) sodium chloride 0.9 % flush 3 mL 3 mL, Intravenous, Every 12 Hours Scheduled, First dose on Tue06/13/18 at 1445 1644 (Not Given - Provider: Leah Aldrich RN - Reason: Given from running infusion)2023 (Given - Provider: Ayah Chawla RN) 0853 (Given - Provider: Anna Leo RN) Continuous Medication Order 06/12/2018 06/13/2018 06/14/2018 dextrose 5 % and sodium chloride 0.9 % infusion 50 mL/hr, Intravenous, Continuous, Starting on Tue06/13/18 at 1630 1737 (Currently Infusing - Provider: Leah Aldrich RN) insulin patient supplied pump Subcutaneous, Continuous, Starting on Tue06/13/18 at 1700, Continue with patient managed pump., Type of Insulin: Admalog, Type of Pump: minimed 530G, Date of Last Site Changed: 06/12/2018, Location of Catheter: left arm 1805 (Self Administered Via Pump - Provider: Leah Aldrich RN) PRN Medication Order 06/12/2018 06/13/2018 06/14/2018 acetaminophen (TYLENOL) tablet 650 mg 650 mg, Oral, Every 4 Hours PRN, Mild Pain, Starting on Tue06/13/18 at 1641, Do not exceed 4 grams of acetaminophen in a 24 hr period. If given for pain, use the following pain scale: Mild Pain = Pain Score of 1-3, CPOT 1-2 Moderate Pain = Pain Score of 4-6, CPOT 3-4 Severe Pain = Pain Score of 7-10, CPOT 5-8 2021 (Given - Provider: Kathleen Chawla RN) HYDROcodone-acetaminophen (NORCO) 5-325 MG per tablet 1 tablet 1 tablet, Oral, Every 4 Hours PRN, Moderate Pain, Starting on Tue06/13/18 at 1641, For 10 days, {WILLIS} Do not exceed 4 grams of acetaminophen in a 24 hr period. If given for pain, use the following pain scale: Mild Pain = Pain Score of 1-3, CPOT 1-2 Moderate Pain = Pain Score of 4-6, CPOT 3-4 Severe Pain = Pain Score of 7-10, CPOT 5-8 morphine injection 1 mg(Linked Group 2) 1 mg, Intravenous, Every 4 Hours PRN, Moderate Pain, Starting on Tue06/13/18 at 1641, For 10 days, If given for pain, use the following pain scale: Mild Pain = Pain Score of 1-3, CPOT 1-2 Moderate Pain = Pain Score of 4-6, CPOT 3-4 Severe Pain = Pain Score of 7-10, CPOT 5-8 naloxone (NARCAN) injection 0.4 mg(Linked Group 2) 0.4 mg, Intravenous, Every 5 Minutes PRN, Respiratory Depression, Starting on Tue06/13/18 at 1641, If respiratory rate is less than 8 breaths/minute or patient is difficult to arouse stop any narcotics and contact physician. Administer slow IV push. Repeat as ordered until patient's respiratory rate is greater than 12 breaths/minute. ondansetron ODT (ZOFRAN-ODT) disintegrating tablet 4 mg 4 mg, Oral, Every 6 Hours PRN, Nausea, Vomiting, Starting on Tue06/13/18 at 1354, Place on tongue and allow to dissolve. sodium chloride 0.9 % flush 3-10 mL 3-10 mL, Intravenous, As Needed, Line Care, Starting on Tue06/13/18 at 0750 sodium chloride 0.9 % flush 3-10 mL 3-10 mL, Intravenous, As Needed, Line Care, Starting on Tue06/13/18 at 1356 traMADol (ULTRAM) tablet 50 mg 50 mg, Oral, Every 6 Hours PRN, Moderate Pain, Starting on Tue06/13/18 at 1353, {WILLIS} Caution: Look alike/sound alike drug alert If given for pain, use the following pain scale: Mild Pain = Pain Score of 1-3, CPOT 1-2 Moderate Pain = Pain Score of 4-6, CPOT 3-4 Severe Pain = Pain Score of 7-10, CPOT 5-8 Linked Groups Order Group 1: dextrose (D50W) 25 g/ 50mL Intravenous Solution 50 mL (COMPLETED)Jump to med 50 mL, Intravenous, Once, On Tue06/13/18 at 1445, For 1 dose And insulin regular (humuLIN R,novoLIN R) injection 10 Units (COMPLETED)Jump to med 10 Units, Intravenous, Once, On Tue06/13/18 at 1445, For 1 dose, {BKC} Caution: Look alike/sound alike drug alert{BKC} Group 2: morphine injection 1 mgJump to med 1 mg, Intravenous, Every 4 Hours PRN, Moderate Pain, Starting on Tue06/13/18 at 1641, For 10 days, If given for pain, use the following pain scale: Mild Pain = Pain Score of 1-3, CPOT 1-2 Moderate Pain = Pain Score of 4-6, CPOT 3-4 Severe Pain = Pain Score of 7-10, CPOT 5-8 And naloxone (NARCAN) injection 0.4 mgJump to med 0.4 mg, Intravenous, Every 5 Minutes PRN, Respiratory Depression, Starting on Tue06/13/18 at 1641, If respiratory rate is less than 8 breaths/minute or patient is difficult to arouse stop any narcotics and contact physician. Administer slow IV push. Repeat as ordered until patient's respiratory rate is greater than 12 breaths/minute. documented in this encounter
--- OUTSIDE RECORDS SUMMARY | 2024-05-30 08:37 | XMS_ITS | Encounter Summary ---
[facility] Address [address] [place] [address] Care Team Providers Care Basket Sorter Name Role Phone Unavailable Primary Care Provider Unavailabl e Encounter Details Date Type Department Care Team (Late st Contact Info) Description 04/06/2018 2:35 PM EDT Lab [facility] [address] [place] [address] Proteinuria, unspecified type Social History Tobacco Use Types [...] Procedure Name Priority Date/Time Associated Diagnosis Comments HIV-1/O/2 ANTIGEN/ANTIBODY Routine 04/06/2018 2:41 PM EDT Proteinuria, unspecified type ANTINUCLEAR ANTIBODIES DIRECT Routine 04/06/2018 2:41 PM EDT Proteinuria, unspecified type ANCA PANEL Routine 04/06/2018 2:41 PM EDT Proteinuria, unspecified type GIANCARLO COMPREHENSIVE PANEL Routine 04/06/2018 2:41 PM EDT Proteinuria, unspecified type ANTI-LEO ANTIBODY Routine 04/06/2018 2 :41 PM EDT Proteinuria, unspecified type HEPATITIS PANEL, ACUTE Routine 8 2:41 PM EDT Proteinuria, unspecified type documented in this encounter Results * HIV-1 / O / 2 Ag / Antibody 4th Generation (04/06/2018 2:41 PM EDT) [facility] HIV-1/ HIV-2 Non-Reacti ve Non-Reacti ve 04/06/2018 8:19 PM EDT [facility] HIV-1 P24 Ag Screen Non-Reacti ve Non-Reacti ve 04/06/2018 8:19 PM EDT [facility] Blood Venipuncture / Unknown 04/06/2018 2:41 PM EDT 04/06/2018 3:38 PM EDT Chacha Gama DO LAB BLOOD ORDERABLES F inal Result [facility]
[address] [phone], * Hepatitis Panel, Acute (04/06/2018 2:41 PM EDT) [facility] Hep A IgM Negative Negative 04/07/2018 9:17 AM EDT [facility] Hepatitis B Surface Ag Negative Negative 04/07/2018 9:17 AM EDT [facility] Hep B Core IgM Negative Negative 04/07/2018 9:17 AM EDT [facility] Hep C Virus Ab <0.1 0.0 - 0.9 s/co ratio 04/07/2018 9:17 AM EDT [facility] Comment: ?Negative: ? < 0.8 ? Indeterminate: 0.8 - 0.9 ?Positive: ? > 0.9 The CDC recommends that a positive HCV antibody result be followed up with a HCV Nucleic Acid Amplification test (326241). Blood Venipuncture / Unknown 04/06/2018 2:41 PM EDT 04/06/2018 3:38 PM EDT Narrative [facility] - 04/07/2018 9:17 AM EDT Performed at: ??01 - [facility], [place], [place] ??[id number] Fusing Machine Operator: Jacob Whaley PhD, Phone: ??[phone] us Chacha Gama DO LAB BLOOD ORDERABLES F inal Result [facility] [address] [place] [id number], * GIANCARLO Comprehensive Panel (04/06/2018 2:41 PM EDT) Anti-DNA (DS) Ab Qn 1 0 - 9 IU/mL 04/07/2018 2:15 PM EDT [facility] Comment: ? Negative ?<5 ? Equivocal ??5 - 9 ? Positive ?>9 WELL PULLER HEAD Antibodies <0.2 0.0 - 0.9 AI 04/07/2018 2:15 PM EDT [facility] Leo Antibodies <0.2 0.0 - 0.9 AI 04/07/2018 2:15 PM EDT [facility] Antiscleroderma-70 Antibodies <0.2 0.0 - 0.9 AI 04/07/2018 2:15 PM EDT [facility] Sjogren's Anti-SS-A <0.2 0.0 - 0.9 AI 04/07/2018 2:15 PM EDT [facility] Sjogren's Anti-SS-B <0.2 0.0 - 0.9 04/07/2018 2:15 PM EDT [facility] Antichromatin Antibodies <0.2 0.0 - 0.9 AI 04/07/2018 2:15 PM EDT [facility] DAILY-1 IgG <0.2 0.0 - 0.9 04/07/2018 2:15 PM EDT [facility] Anti-Centromere B Antibodies <0.2 0.0 - 0.9 AI 04/07/2018 2:15 PM EDT [facility] See below: Comment 04/07/2018 2:15 PM EDT [facility] Comment: Autoantibody ? Disease Association ?Condition ?Frequency ? --------- Antinuclear Antibody, ?SLE, mixed connective Direct (GIANCARLO-D) ? tissue diseases ? --------- dsDNA ?SLE ?40 - 60% ? --------- Chromatin ?Drug induced SLE ?90% ? SLE ?48 - 97% ? --------- SSA (Ro) ? SLE ?25 - 35% ? Sjogren's Syndrome ? 40 - 70% ? Lupus ? 100% ? --------- SSB (La) ? SLE ? 10% ? Sjogren's Syndrome ?30% ?--------- Sm (anti-Leo) ?SLE ?15 - 30% ?--------- WELL PULLER HEAD ?Mixed Connective Tissue ? Disease ? 95% (U1 nRNP, ?SLE ?30 - 50% anti-ribonucleoprotein) ??Polymyositis and/or ? Dermatomyositis ? 20% ? --------- Scl-70 (antiDNA ?Scleroderma (diffuse) ?20 - 35% topoisomerase) ? Crest ? 13% ? --------- Daily-1 ? Polymyositis and/or ? Dermatomyositis ?20 - 40% ? --------- Centromere B ? Scleroderma - Crest ? variant ? 80% Blood Venipuncture / Unknown 04/06/2018 2:41 PM EDT 04/06/2018 3:38 PM EDT Narrative [facility] - 04/07/2018 2:15 PM EDT Performed at: ??01 - [address] ??[id number] Fusing Machine Operator: Jacob Whaley PhD, Phone: ??[phone] Chacha Gama DO LAB BLOOD ORDERABLES F inal Result [facility] [address] [place] [id number], * Anti-Leo Antibody (04/06/2018 2:41 PM EDT) Leo Antibodies <0.2 0.0 - 0.9 AI 04/07/2018 2:15 PM EDT [facility] Blood Venipuncture / Unknown 04/06/2018 2:41 PM EDT 04/06/2018 3:38 PM EDT Narrative [facility] - 04/07/2018 2:15 PM EDT Performed at: ??[address] ??[id number] Fusing Machine Operator: Jacob Whaley PhD, Phone: ??[phone] Chacha Corrigan Natan DO LAB BLOOD ORDERABLES F inal Result Performing Organization Address [facility] Co de Phone Number [facility] [address] [place] [address], * Antinuclear Antibodies Direct (04/06/2018 2:41 PM EDT) [facility] GIANCARLO Direct Negative Negative 04/07/2018 2:15 PM EDT [facility] Blood Venipuncture / Unknown 04/06/2018 2:41 PM EDT 04/06/2018 3:38 PM EDT Narrative [facility] - 04/07/2018 2:15 PM EDT Performed at: ??[address] ??[id number] Fusing Machine Operator: Jacob Whaley PhD, Phone: ??[phone] Chacha Gama DO LAB BLOOD ORDERABLES F inal Result Performing Organization Address [facility] de Phone Number [facility] [address] [place] [address], * ANCA Panel (04/06/2018 2:41 PM EDT) [facility] Myeloperoxidase Ab <9.0 0.0 - 9.0 U/mL 04/08/2018 5:08 PM EDT [facility] Antiproteinase 3 (RI-3) <3.5 0.0 - 3.5 U/mL 04/08/2018 5:08 PM EDT [facility] C-ANCA <1:20 Neg:<1:20 titer 04/08/2018 5:08 PM EDT [facility] Comment:Serum is slightly li pemic. P-ANCA <1:20 Neg:<1:20 titer 04/08/2018 5:08 PM EDT [facility] Comment: Serum is slightly lipemic. The presence of positive fluorescence exhibiting P-ANCA or C-ANCA patterns alone is not specific for the diagnosis of Delores's Granulomatosis (WG) or microscopic polyangiitis. Decisions about treatment should not be based solely on ANCA IFA results. ??The International ANCA Group Consensus recommends follow up testing of positive sera with both RI-3 and MPO-ANCA enzyme immunoassays. As many as 5% serum samples are positive only by EIA. Ref. AM J Clin Pathol 1999;111:507-513. Atypical pANCA <1:20 Neg:<1:20 titer 04/08/2018 5:08 PM EDT [facility] Comment: Serum is slightly lipemic. The atypical pANCA pattern has been observed in a significant percentage of patients with ulcerative colitis, primary sclerosing cholangitis and autoimmune hepatitis. Blood Venipuncture / Unknown 04/06/2018 2:41 PM EDT 04/06/2018 3:38 PM EDT Narrative [facility] - 04/08/2018 5:08 PM EDT Performed at: ??01 - [facility] ??[id number] Fusing Machine Operator: Ibrahima Kelly MD, Phone: ??[phone] Performed at: ??02 - [address] ??[id number] Fusing Machine Operator: Jacob Whaley PhD, Phone: ??[phone] Chacha Gama DO LAB BLOOD ORDERABLES F inal Result [facility] [address] [place] [id number], documented in this encounter Visit Diagnoses Diagnosis Proteinuria, unspecified type documented in this encounter
--- OUTSIDE RECORDS SUMMARY | 2024-05-30 08:37 | XMS_ITS | Encounter Summary ---
[facility] Address [address] [place] [id number] Care Team Providers Care Allergist/Pediatric Pulmonologist Name Role Phone Unavailable Primary Care Provider Unavailabl e Reason for Visit * Reason Comments Chest Pain Encounter Details Date Type Department Care Team (Late st Contact Info) Description 03/24/2018 9:11 PM EDT - 03/25/2018 12:51 AM EDT Emergency [facility] [address] [place] [phone] Christopher Aggarwal MD Chest pain, unspecified type (Primary Dx); Hyperglycemia; Dehydration; Upper respiratory tract infection, unspecified type Discharge Disposition: Home or Self [...] Sign Reading Time Taken Comments Blood Pressure 165/104 03/25/2018 12:13 AM EDT Pulse 76 03/25/2018 12:13 AM EDT Temperature 37.1 ??C (98.7 ??F) 03/24/2018 9:09 PM ED T Respiratory Rate 17 03/25/2018 12:13 AM EDT Oxygen Saturation 99% 03/25/2018 12:13 AM EDT Inhaled Oxygen Concentration - - Weight 80.7 kg (178 lb) 03/24/2018 9:09 PM EDT Height 165.1 cm (5' 5 ) 03/24/2018 9:09 PM EDT Body Mass Index 29.62 03/24/2018 9:09 PM EDT documented in this encounter Discharge Instructions * Attachments The following attachments cannot be sent through Care Everywhere. * Upper Respiratory Infection Adult [id number] (Panamanian) * Nonspecific Chest Pain Wosd-ws-Uulp (Panamanian) * Dehydration Adult [id number] (Panamanian) * Hyperglycemia (Panamanian) documented in this encounter Medications at Time [...] . 8 documented as of this encounter ED Notes * Christopher Aggarwal MD - 03/24/2018 10:22 PM EDT Subjective 27 year old female presenting with multiple complaints. She states that for the last 2 weeks she has had nasal congestion, cough, sinus pressure. Have been using [id number] symptomatic medications without any relief. Several hours ago she had an episode of left-sided chest pain that was sharp, this migrated to her left hip, no alleviating or aggravating factors to the symptoms. No shortnessof breath. Has had some nausea and vomiting. No fevers, chills, urinary complaints. She is a poorlycontrolled type I diabetic. Review of Systems Constitutional: Negative. HENT: Positive for congestion, rhinorrhea and sinus pressure. Negative for sore throat. Eyes: Negative. Respiratory: Negative. Cardiovascular: Positive for chest pain. Gastrointestinal: Positive for nausea and vomiting. Negative for abdominal pain. Genitourinary: Negative. Musculoskeletal: Positive for arthralgias. Negative for back pain and neck pain. Skin: Negative. Neurological: Negative. Psychiatric/Behavioral: Negative. Past [...] reviewed. No pertinent family history. Social History Social History ??? Marital status: Social History Main Topics ??? Smoking status: Current Some Day Smoker Packs/day: 2.00 Years: 10.00 Types: Cigarettes ??? Alcohol use Yes ??? Drug use: No ??? Sexual activity: Yes control/ protection: Pill Comment: ran out 2 1/12 months ago Other Topics Concern ??? Not on file Social History Narrative Merged History Encounter Objective Physical Exam Constitutional: She is oriented to person, place, and time. She appears well- developed and well-nourished. No distress. HENT: Head: Normocephalic and atraumatic. Right Ear: External ear normal. Left Ear: External ear normal. Nose: Nose normal. Mouth/Throat: Oropharynx is clear and moist. Nasal congestion, oropharynx is clear Eyes: Pupils are equal, round, and reactive to light. Conjunctivae and EOM are normal. Neck: Normal range of motion. Neck supple. Cardiovascular: Regular rhythm, normal heart sounds and intact distal pulses. Mild tachycardia Pulmonary/Chest: Effort normal and breath sounds normal. No respiratory distress. She has no wheezes. She has no rales. Abdominal: Soft. Bowel sounds are normal. She exhibits no distension. There is no tenderness. Thereis no rebound and no guarding. Musculoskeletal: Normal range of motion. She exhibits no edema or deformity. Tenderness over the left hip Neurological: She is alert and oriented to person, place, and time. Normal strength and sensation Skin: Skin is warm and dry. No rash noted. Psychiatric: She has a normal mood and affect. Her behavior is normal. Nursing note and vitals reviewed. Procedures ED Course MDM Number of Diagnoses or Management Options Chest pain, unspecified type: Dehydration: Hyperglycemia: Upper respiratory tract infection, unspecified type: Diagnosis management comments: 27-year-old female with multiple complaints. Well-developed, well-nourished young female in no distress with exam as well. We'll check labs, EKG, chest x-ray and hip x-ray. We'll treat symptomatically and give IV fluids. Disposition pending workup. DDX: ACS, anxiety, viral illness, diabetic complication, dehydration EKG interpreted by me: Sinus rhythm, normal rate, normal axis/intervals, no acute ST/T changes, this is a normal EKG Workup is notable for elevated glucose without evidence of DKA. Imaging per my interpretation reveals no acute abnormality. She feels better after fluids. At this time I feel she is safe for discharge home. Amount and/or Complexity of Data Reviewed Clinical lab tests: reviewed Tests in the radiology section of CPT??: reviewed Decide to obtain previous medical records or to obtain history from someone other than the patient:yes Final diagnoses: Chest pain, unspecified type Hyperglycemia Dehydration Upper respiratory tract infection, unspecified type Christopher Aggarwal MD 03/25/18 0032 * Stephani Hutton RN - 03/24/2018 10:05 PM EDT Patient states unable to provide urine sample at this time. Stephani Hutton RN 03/24/182205 * Sarah Shaffer RN - 03/24/2018 10:03 PM EDT Pt stated she could not give urine sample at this time; refused in/out cath, stating after receiving IV fluids she could probably go ; will continue to monitor Sarah Shaffer RN 03/24/18 [id number] documented in this encounter Plan of Treatment Not on file documented as of this encounter Procedures Procedure Name Priority Date/Time Associated Diagnosis Comments BLOOD GAS, VENOUS STAT 03/25/2018 12: 15 AM EDT XR HIP W OR WO PELVIS 2-3 VIEW LEFT STAT 03/24/2018 11:43 PM EDT XR CHEST 2 VW STAT 03/24/2018 11:43 PM EDT URINALYSIS, MICROSCOPIC ONLY STAT 03/24/2018 11:15 PM EDT URINALYSIS W/ MICROSCOPIC IF INDICATED (NO CULTURE) STAT 03/24/2018 11:15 PM EDT , URINE STAT 03/24/2018 11:1 5 PM EDT PROCALCITONIN STAT 03/24/2018 10:22 PM EDT CBC WITH AUTO DIFFERENTIAL STAT 03/24/2018 10:22 PM EDT TROPONIN STAT 03/24/2018 10:22 PM EDT CBC AND DIFFERENTIAL STAT 03/24/2018 10:22 PM EDT B-TYPE NATRIURETIC PEPTIDE STAT 03/24/2018 10:22 PM EDT LIPASE STAT 03/24/2018 10:22 PM EDT LACTIC ACID, PLASMA STAT 03/24/2018 1 0:22 PM EDT COMPREHENSIVE METABOLIC PANEL STAT 03/24/2018 10:22 PM EDT documented in this encounter Results * (ABNORMAL) Blood Gas, Venous (03/25/2018 12:15 AM EDT) Site OTHER 03/25/2018 12:15 AM EDT [facility] pH, Venous 7.335 7.320 - 7.420 pH Units 03/25/2018 12:15 AM EDT [facility] pCO2, Venous 34.6(L) 40.0 - 50.0 mm Hg 03/25/2018 12:15 AM EDT [facility] pO2, Venous 26.0(L) 30.0 - 50.0 mm Hg 03/25/2018 12:15 AM EDT [facility] HCO3, Venous 18.5(L) 22.0 - 28.0 mmol/L 03/25/2018 12:15 AM EDT [facility] Base Excess, Venous -6.7(L) 0.0 - 2.0 mmol/L 03/25/2018 12:15 AM EDT [facility] O2 Saturation, Venous 45.9 45.0 - 75.0 % 03/25/2018 12:15 AM EDT [facility] Barometric Pressure for Blood Gas 736 mmHg 03/25/2018 12:15 AM EDT [facility] THERAPY Modality Room Air 03/25/2018 12:15 AM EDT [facility] Ventilator Mode NA 8 12:15 AM EDT [facility] Venous Blood 03/25/2018 12:1 5 AM EDT 03/25/2018 12:15 AM EDT us Christopher Aggarwal MD LAB BLOOD ORDERABLES Fin al Result [facility]
[address] [place] [address], [place] * XR Hip With or Without Pelvis 2 - 3 View Left (03/24/2018 11:43 PM EDT) Anatomical Region Laterality Modality Lower Extremities, Hip Left Radiograp hic Imaging 03/25/2018 7:29 AM EDT Impressions 03/25/2018 7:29 AM EDT No acute osseous abnormality of the left hip. Consider MR if symptomatology persists. ?? This report was finalized on 03/25/2018 7:29 AM by Basia Millan MD. Narrative 03/25/2018 7:29 AM EDT PROCEDURE: XR HIP W OR WO PELVIS 2-3 VIEW LEFT- HISTORY: pain COMPARISON: None. FINDINGS: An AP view of the pelvis and a frog leg view of the left hip were obtained. ?? There is no acute osseous abnormality of the left hip or pelvis. 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 ??The soft tissues appear normal. Procedure Note Basia Millan MD - 03/25/2018 PROCEDURE: XR HIP W OR WO PELVIS 2-3 VIEW LEFT- HISTORY: pain COMPARISON: None. FINDINGS: An AP view of the pelvis and a frog leg view of the left hip were obtained. There is no acute osseous abnormality of the left hip or pelvis. 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 The soft tissues appear normal. IMPRESSION: No acute osseous abnormality of the left hip. Consider MR if symptomatology persists. This report was finalized on 03/25/2018 7:29 AM by Basia Millan MD. Christopher Aggarwal MD IMG DIAGNOSTIC IMAGING O RDERABLES Final Result * XR Chest 2 View (03/24/2018 11:43 PM EDT) Anatomical Region Laterality Modality Body N/A Radiographic Kim ging 03/25/2018 7:30 AM EDT Impressions 03/25/2018 7:30 AM EDT No radiographic evidence of acute cardiac or pulmonary disease. ?? This report was finalized on 03/25/2018 7:30 AM by Basia Millan MD. Narrative 03/25/2018 7:30 AM EDT PROCEDURE: XR CHEST 2 VW- INDICATION: cp COMPARISON: ??01/31/2018 FINDINGS: PA and lateral views of the chest were obtained. ?? The cardiac and mediastinal silhouettes are within normal limits. ?The lungs are clear. ??There is no pneumothorax or pleural effusion. ??No acute osseous abnormality is identified. Procedure Note Basia Millan MD - 03/25/2018 PROCEDURE: XR CHEST 2 VW- INDICATION: cp COMPARISON: 01/31/2018 FINDINGS: PA and lateral views of the chest were obtained. The cardiac and mediastinal silhouettes are within normal limits. The lungs are clear. There is no pneumothorax or pleural effusion. No acute osseous abnormality is identified. IMPRESSION: No radiographic evidence of acute cardiac or pulmonary disease. This report was finalized on 03/25/2018 7:30 AM by Basia Millan MD. Christopher Aggarwal MD IMG DIAGNOSTIC IMAGING O RDERABLES Final Result * (ABNORMAL) Urinalysis, Microscopic Only - Urine, Clean Catch (03/24/2018 11:15 PM EDT) RBC, UA 3-5(A) None Seen /HPF 03/24/2018 11:30 PM EDT [facility] WBC, UA 3-5(A) None Seen /HPF 03/24/2018 11:30 PM EDT [facility] Bacteria, UA 1+(A) None Seen /HPF 03/24/2018 11:30 PM EDT [facility] Squamous Epithelial Cells, UA 0-2 None Seen, 0-2 /HPF 03/24/2018 11:30 PM EDT [facility] Hyaline Casts, UA None Seen None Seen /LPF 03/24/2018 11:30 PM EDT [facility] Methodology Manual Light Microscopy 03/24/2018 11:30 PM EDT [facility] Urine Urine specimen collection, clean catch / Unknown Collection / Unknown 03/24/2018 11:15 PM EDT 03/24/2018 11:17 PM EDT Christopher Aggarwal MD URINE ORDERABLES Final R esult [facility]
[address] [place] [address], [place] [phone] * (ABNORMAL) Urinalysis With Microscopic If Indicated (No Culture) - Urine, Clean Catch (03/24/2018 11:15 PM EDT) Color, UA Straw Yellow, Straw 03/24/2018 11:22 PM EDT [facility] Appearance, UA Clear Clear 03/24/2018 11:22 PM EDT [facility] pH, UA 5.5 5.0 - 8.0 03/24/2018 11:22 PM EDT [facility] Specific [place], UA 1.025 1.005 - 1.030 03/24/2018 11:22 PM EDT [facility] Glucose, UA >=1000 mg/dL (3+)(A) Negative 03/24/2018 11:22 PM EDT [facility] Ketones, UA Negative Negative 03/24/2018 11:22 PM EDT [facility] Bilirubin, UA Negative Negative 03/24/2018 11:22 PM EDT [facility] Blood, UA Small (1+)(A) Negative 03/24/2018 11:22 PM EDT [facility] Protein, UA >=300 mg/dL (3+)(A) Negative 03/24/2018 11:22 PM EDT [facility] Leuk Esterase, UA Negative Negative 03/24/2018 11:22 PM EDT [facility] Nitrite, UA Negative Negative 03/24/2018 11:22 PM EDT [facility] Urobilinogen, UA 0.2 E.U./dL 0.2 - 1.0 E.U./dL 03/24/2018 11:22 PM EDT [facility] Urine Urine specimen collection, clean catch / Unknown Collection / Unknown 03/24/2018 11:15 PM EDT 03/24/2018 11:17 PM EDT Christopher Aggarwal MD URINE ORDERABLES Final R esult [facility]
[address] [place] [id number], * , Urine - Urine, Clean Catch (03/24/2018 11:15 PM EDT) HCG, Urine QL Negative Negative 03/24/2018 11:22 PM EDT [facility] Urine Urine specimen collection, clean catch / Unknown Collection / Unknown 03/24/2018 11:15 PM EDT 03/24/2018 11:17 PM EDT Christopher Aggarwal MD URINE ORDERABLES Final R esult [facility]
[address] [place] [address], [place] [phone] * (ABNORMAL) CBC Auto Differential (03/24/2018 10:22 PM EDT) WBC 10.76 4.80 - 10.80 10*3/mm3 03/24/2018 10:30 PM EDT [facility] RBC 3.96(L) 4.20 - 5.40 10*6/mm3 03/24/2018 10:30 PM EDT [facility] Hemoglobin 11.6(L) 12.0 - 16.0 g/dL 03/24/2018 10:30 PM EDT [facility] Hematocrit 33.0(L) 37.0 - 47.0 % 03/24/2018 10:30 PM EDT [facility] MCV 83.3 81.0 - 99.0 fL 03/24/2018 10:30 PM EDT [facility] MCH 29.3 27.0 - 31.0 pg 03/24/2018 10:30 PM EDT [facility] MCHC 35.2 30.0 - 37.0 g/dL 03/24/2018 10:30 PM EDT [facility] RDW 11.7 11.5 - 14.5 % 03/24/2018 10:30 PM EDT [facility] RDW-SD 35.4(L) 37.0 - 54.0 fl 03/24/2018 10:30 PM EDT [facility] MPV 12.6(H) 6.0 - 12.0 fL 03/24/2018 10:30 PM EDT [facility] Platelets 260 130 - 400 10*3/mm3 03/24/2018 10:30 PM EDT [facility] Neutrophil % 47.5 37.0 - 80.0 % 03/24/2018 10:30 PM EDT [facility] Lymphocyte % 42.8 10.0 - 50.0 % 03/24/2018 10:30 PM EDT [facility] Monocyte % 5.1 0.0 - 12.0 % 03/24/2018 10:30 PM EDT [facility] Eosinophil % 3.3 0.0 - 7.0 % 03/24/2018 10:30 PM EDT [facility] Basophil % 0.4 0.0 - 2.5 % 03/24/2018 10:30 PM EDT [facility] Immature Grans % 0.9(H) 0.0 - 0.6 % 03/24/2018 10:30 PM EDT [facility] Neutrophils, Absolute 5.11 2.00 - 6.90 10*3/mm3 03/24/2018 10:30 PM EDT [facility] Lymphocytes, Absolute 4.61(H) 0.60 - 3.40 10*3/mm3 03/24/2018 10:30 PM EDT [facility] Monocytes, Absolute 0.55 0.00 - 0.90 10*3/mm3 03/24/2018 10:30 PM EDT [facility] Eosinophils, Absolute 0.35 0.00 - 0.70 10*3/mm3 03/24/2018 10:30 PM EDT [facility] Basophils, Absolute 0.04 0.00 - 0.20 10*3/mm3 03/24/2018 10:30 PM EDT [facility] Immature Grans, Absolute 0.10(H) 0.00 - 0.06 10*3/mm3 03/24/2018 10:30 PM EDT [facility] nRBC 0.0 0.0 - 0.0 /100 WBC 03/24/2018 10:30 PM EDT [facility] Blood Venipuncture / Unknown 03/24/2018 10:22 PM EDT 03/24/2018 10:27 PM EDT Christopher Aggarwal MD LAB BLOOD ORDERABLES Fin al Result [facility]
[address] [place] [id number], * Procalcitonin (03/24/2018 10:22 PM EDT) Procalcitonin <0.05 <=0.25 ng/mL 03/24/2018 11:23 PM EDT [facility] Blood Venipuncture / Unknown 03/24/2018 10:22 PM EDT 03/24/2018 10:27 PM EDT Narrative [facility] - 03/24/2018 11:23 PM EDT As a Marker for Sepsis (Non-Neonates): 1. <0.5 ng/mL represents a low risk of severe sepsis and/or septic shock. 2. >2 ng/mL represents a high risk of severe sepsis and/or septic shock. As a Marker for Lower Respiratory Tract Infections that require antibiotic therapy: PCT on Admission ? Antibiotic Therapy ? 6-12 Hrs later > 0.5 ?Strongly Recommended ? >0.25 - <0.5 ? Recommended 0.1 - 0.25 ? Discouraged ?Remeasure/reassess PCT <0.1 ? Strongly Discouraged ? Remeasure/reassess PCT ? PCT values of < 0.5 ng/mL do not exclude an infection, because localized infections (without systemic signs) may be associated with such low concentrations, or a systemic infection in its initial stages (< 6 hours). Furthermore, increased PCT can occur without infection. PCT concentrations between 0.5 and 2.0 ng/mL should be interpreted taking into account the patient's history. It is recommended to retest PCT within 6-24 hours if any concentrations < 2 ng/mL are obtained. us Christopher Aggarwal MD LAB BLOOD ORDERABLES Fin al Result Performing Organization Address City/[facility]/ZIP Co de Phone Number [facility]
[address] [place] [address], * Lactic Acid, Plasma (03/24/2018 10:22 PM EDT) Lactate 1.8 0.5 - 2.0 mmol/L 03/24/2018 10:46 PM EDT [facility] Blood Venipuncture / Unknown 03/24/2018 10:22 PM EDT 03/24/2018 10:27 PM EDT Christopher Aggarwal MD LAB BLOOD ORDERABLES Fin al Result Performing Organization Address [facility] Co de Phone Number [facility]
[address] [place] [address], * Troponin (03/24/2018 10:22 PM EDT) Troponin I <0.012 0.000 - 0.034 ng/mL 03/24/2018 10:57 PM EDT [facility] Blood Venipuncture / Unknown 03/24/2018 10:22 PM EDT 03/24/2018 10:27 PM EDT Narrative [facility] - 03/24/2018 10:57 PM EDT Normal Patient Upper Reference Limit (URL) (99th Percentile)=0.03 ng/mL Non-AMI Illness Reference Limit=0.03-0.11 ng/mL AMI Confirmation=0.12 ng/mL and above Christopher Aggarwal MD LAB BLOOD ORDERABLES Fin al Result Performing Organization Address City/[facility]/ZIP Co de Phone Number [facility]
[address] [place] [address], * (ABNORMAL) BNP (03/24/2018 10:22 PM EDT) proBNP 249.0(HH) 0.0 - 125.0 pg/mL 03/24/2018 11:01 PM EDT [facility] Blood Venipuncture / Unknown 03/24/2018 10:22 PM EDT 03/24/2018 10:27 PM EDT Christopher Aggarwal MD LAB BLOOD ORDERABLES Fin al Result [facility]
[address] [place] [address], * Lipase (03/24/2018 10:22 PM EDT) Lipase 207 23 - 300 U/L 03/24/2018 10:57 PM EDT [facility] Blood Venipuncture / Unknown 03/24/2018 10:22 PM EDT 03/24/2018 10:27 PM EDT Christopher Aggarwal MD LAB BLOOD ORDERABLES Fin al Result [facility]
[address] [place] [address], [place] [phone] * (ABNORMAL) Comprehensive Metabolic Panel (03/24/2018 10:22 PM EDT) Glucose 422(HH) 74 - 98 mg/dL 03/24/2018 11:01 PM EDT [facility] BUN 29(H) 7 - 20 mg/dL 03/24/2018 11:01 PM EDT [facility] Creatinine 2.00(H) 0.60 - 1.30 mg/dL 03/24/2018 11:01 PM EDT [facility] Sodium 132(L) 137 - 145 mmol/L 03/24/2018 11:01 PM EDT [facility] Potassium 4.1 3.5 - 5.1 mmol/L 03/24/2018 11:01 PM EDT [facility] Chloride 103 98 - 107 mmol/L 03/24/2018 11:01 PM EDT [facility] CO2 16.0(L) 26.0 - 30.0 mmol/L 03/24/2018 11:01 PM [facility] Calcium 8.9 8.4 - 10.2 mg/dL 03/24/2018 11:01 PM [facility] Total Protein 6.6 6.3 - 8.2 g/dL 03/24/2018 11:01 PM [facility] Albumin 3.50 3.50 - 5.00 g/dL 03/24/2018 11:01 PM [facility] ALT (SGPT) 22 13 - 69 U/L 03/24/2018 11:01 PM [facility] AST (SGOT) 12(L) 15 - 46 U/L 03/24/2018 11:01 PM [facility] Alkaline Phosphatase 120 38 - 126 U/L 03/24/2018 11:01 PM [facility] Total Bilirubin 0.2 0.2 - 1.3 mg/dL 03/24/2018 11:01 PM [facility] eGFR Non Amer 30(L) >60 mL/min/1.7 3 03/24/2018 11:01 PM [facility] Globulin 3.1 gm/dL 03/24/2018 11:01 PM [facility] A/G Ratio 1.1 1.0 - 2.0 g/dL 03/24/2018 11:01 PM [facility] BUN/Creatinine Ratio 14.5 7.1 - 23.5 03/24/2018 11:01 PM [facility] Anion Gap 17.1 10.0 - 20.0 mmol/L 03/24/2018 11:01 PM [facility] Blood Venipuncture / Unknown 03/24/2018 10:22 PM EDT 03/24/2018 10:27 PM EDT [facility] - 03/24/2018 11:01 PM EDT GFR Normal >60 Chronic Kidney Disease <60 Kidney Failure <15 Christopher Aggarwal MD LAB BLOOD ORDERABLES Fin al Result [facility]
[address] [place] [address], documented in this encounter Visit Diagnoses Diagnosis Chest pain, unspecified type- Primary Hyperglycemia Other abnormal glucose Dehydration Upper respiratory tract infection, unspecified type documented in this encounter Administered Medications Inactive Administered Medications - up to 3 most recent administrations Medication Order MAR Action Action Date Dose Rate Site aspirin chewable tablet 324 mg 324 mg, Oral, Once, On Tue03/24/18 at 2149, For 1 dose, Herbal/drug interaction: Avoid use with ginkgo biloba. Do not exceed 4 grams of aspirin in a 24 hr period. If given for pain, use the following pain scale: Mild Pain = Pain Score of 1-3, CPOT 1-2 Moderate Pain = Pain Score of 4-6, CPOT 3-4 Severe Pain = Pain Score of 7-10, CPOT 5-8 Given 03/24/2018 10:16 PM EDT 324 mg lactated ringers bolus 1,000 mL 1,000 mL, Intravenous, at 2,000 mL/hr, Administer over 0.5 Hours, Once, On Tue03/24/18 at 2149, For 1 dose New Bag 03/24/2018 10:23 PM EDT 1,000 mL 2000 mL/hr lactated ringers bolus 1,000 mL 1,000 mL, Intravenous, at 2,000 mL/hr, Administer over 0.5 Hours, Once, On Tue03/24/18 at 2317, For 1 dose New Bag 03/24/2018 11:23 PM EDT 1,000 mL 2000 mL/hr documented in this encounter Active and Recently Administered Medications Times are shown in EDT. Scheduled Medication Order 03/23/2018 03/24/2018 03/25/2018 aspirin chewable tablet 324 mg (COMPLETED) 324 mg, Oral, Once, On Tue03/24/18 at 2149, For 1 dose, Herbal/drug interaction: Avoid use with ginkgo biloba. Do not exceed 4 grams of aspirin in a 24 hr period. If given for pain, use the following pain scale: Mild Pain = Pain Score of 1-3, CPOT 1-2 Moderate Pain = Pain Score of 4-6, CPOT 3-4 Severe Pain = Pain Score of 7-10, CPOT 5-8 2216 (Given - Provider: Sarah Shaffer RN) lactated ringers bolus 1,000 mL (COMPLETED) 1,000 mL, Intravenous, at 2,000 mL/hr, Administer over 0.5 Hours, Once, On Tue03/24/18 at 2149, For 1 dose 2223 (New Bag - Provider: Sarah Shaffer RN)2321 (Stopped - Provider: Sarah Shaffer RN) lactated ringers bolus 1,000 mL (COMPLETED) 1,000 mL, Intravenous, at 2,000 mL/hr, Administer over 0.5 Hours, Once, On Tue03/24/18 at 2317, For 1 dose 2323 (New Bag - Provider: Sarah Shaffer RN) 0049 (Stopped - Provider: Sarah Shaffer RN) documented in this encounter
--- OUTSIDE RECORDS SUMMARY | 2024-05-30 08:37 | XMS_ITS | Encounter Summary ---
Author Organization [facility] Address [address] [place] [address] Care Team Providers Care [employer] Steward/Stewardess Name Role Phone Unavailable Primary Care Provider Unavailabl e Reason for Visit * Reason Comments Flank Pain Encounter Details Date Type Department Care Team (Late st Contact Info) Description 08/03/2018 5:42 PM EST - 08/03/2018 5:57 PM EST Emergency [facility] EMERGENCY DEPARTMENT [address] [place] [phone] Krissy Bowman MD Emergency, Triage Protocol, [place] [address] Discharge Disposition: Left Without Being Seen Social [...] Sign Reading Time Taken Comments Blood Pressure 152/102 08/03/2018 3:37 PM EST Pulse 91 08/03/2018 3:37 PM EST Temperature 37.1 ??C (98.7 ??F) 08/03/2018 3:37 PM ES T Respiratory Rate 16 08/03/2018 3:37 PM EST Oxygen Saturation 99% 08/03/2018 3:37 PM EST Inhaled Oxygen Concentration - - Weight 95.6 kg (210 lb 12.8 oz) 08/03/2018 3:37 PM EST Height 165.1 cm (5' 5 ) 08/03/2018 3:37 PM EST Body Mass Index 35.08 08/03/2018 3:37 PM EST documented in this encounter Medications at Time [...] As Needed, Line Care, Starting on Emma 08/03/18 at 1750 documented in this encounter Active and Recently Administered Medications Times are shown in EST. PRN Medication Order 08/01/2018 08/02/2018 08/03/2018 sodium chloride 0.9 % flush 10 mL 10 mL, Intravenous, As Needed, Line Care, Starting on Emma 08/03/18 at 1750 documented in this encounter
--- OUTSIDE RECORDS SUMMARY | 2024-05-30 08:37 | XMS_ITS | Encounter Summary ---
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 Name Role Phone Unavailable Primary Care Provider Unavailabl e Reason for Visit * Reason Comments Abdominal Pain * Auth/Cert Specialty Diagnoses / Procedures Referred By Contac t Referred To Contact Diagnoses Pyelonephritis, acute Pyelonephritis, acute Procedures - Referral ID Status Reason Start Date Expiration Date Visits Re quested Visits Authorized [id number] 1 1 Encounter Details Date Type Department Care Team (Latest Contact Info) Description 07/21/2018 4:45 PM EST - 07/22/2018 7:55 PM [facility] Hospital Encounter [facility] [address] [place] [address] Christopher Aggarwal MD Gilbert, Cody B, DO [address] [place] [address] Jarred Bauman MD [address] [place] [address] Pyelonephritis, acute (Primary Dx); Acute renal failure superimposed on chronic kidney disease, unspecified CKD stage, unspecified acute renal failure type Discharge Disposition: Left Against Medical Advice Social History Tobacco Use Types Packs/Day Years [...] Sign Reading Time Taken Comments Blood Pressure 122/76 07/22/2018 3:58 PM EST Pulse 99 07/22/2018 3:58 PM EST Temperature 37.1 ??C (98.7 ??F) 07/22/2018 3:58 PM ES T Respiratory Rate 18 07/22/2018 3:58 PM EST Oxygen Saturation 100% 07/22/2018 3:58 PM EST Inhaled Oxygen Concentration - - Weight 96.9 kg (213 lb 9.6 oz) 07/22/2018 11:53 AM EST Height 165.1 cm (5' 5 ) 07/22/2018 11:53 AM EST Body Mass Index 35.54 07/22/2018 11:53 AM EST documented in this encounter Discharge Summaries * Jarred Bauman MD - 07/22/2018 7:47 PM EST Images from the original note were not included. [facility] DISCHARGE SUMMARY Name: Crystal Archer Age: 27 y.o. Sex: female : 1990 Visit Number: [id number] Admission Date: 07/21/2018 Date of Discharge: 07/22/2018 Primary Care Physician: Fabiola Guzman MD Discharge Diagnoses: 1. Acute left pyelonephritis, present on admission. 2. Sepsis, secondary to #1, present on admission. 3. Acute renal failure, secondary to dehydration, present on admission. 4. Acute hyperkalemia secondary to #3, present on admission. 5. Diabetes mellitus type 1 with nephropathy. 6. Chronic kidney disease stage IV. 7. Essential hypertension. Pyelonephritis, acute Hyperlipidemia Acute renal failure (CMS/HCC) Type 1 diabetes mellitus with stage 3 chronic kidney disease (CMS/HCC) Acute hyperkalemia Essential hypertension Chronic kidney disease, stage IV (severe) (CMS/HCC) Presenting Problem: Pyelonephritis, acute [N10] Pyelonephritis, acute [N10] Consults: Consults Date and Time Order Name Status Description 07/21/2018 2206 Inpatient Nephrology Consult Completed Consulting Physician(s) Provider Relationship Specialty Ricardo Baker MD, FASN Consulting Physician Nephrology Procedures Performed: None. History of presenting illness: This is a 27-year-old female with history of diabetes mellitus type 1 with nephropathy, chronic kidney disease stage III was brought to the emergency room by her fianc?? with the above complaints. Patient was seen and examined in the emergency room and the history is obtained from the patient as well as the medical chart. Patient states that she was in her usual state of health until yesterday when she developed left flank pain associated with nausea and vomiting. She had several episodes of vomiting soon followed by watery diarrhea. She denies any history of fever or chills. Does complain ofsome dysuria. ?? Patient was evaluated in the emergency room. Her initial temperature was 99.2 and she was tachycardic at 116. Her blood pressure was 156/99 and pulse oxygen saturation was 99% on room air. Blood workdone in the emergency room showed a glucose of 105, sodium 130, potassium of 6.2 and a creatinine of 3.4 (baseline 2.6). Her white count was 16,000. Urinalysis showed evidence of urinary tract infection. Urine test was negative. CT of the abdomen and pelvis done without contrast in the emergency room showed minimal dilatation of the left ureter and intrarenal collecting system with extensive inflammatory stranding most likely related to pyelonephritis. Cholelithiasis was also noted. Patient was given 1 L of normal saline bolus and was given IV antibiotic therapy with Rocephin. She was also given morphine and Zofran for symptomatic control. He was noted to have hyperkalemia and wasgiven IV calcium gluconate and oral Kayexalate. She is subsequently being admitted to the medical floor for further evaluation and management. ?? Patient did have a renal biopsy at [facility] on 06/13/2018 and the pathology report was suggestive of diabetic nephropathy with extensive global and segmental glomerulosclerosis. Patient apparently has refused future dialysis and is currently being evaluated for renal transplant. Beau have history of diabetes mellitus type 1 since the age of 12. I didn't age of 15 she did not have any significant medical treatment but since then she has been on insulin and currently follows up with endocrinology at [facility]. She has insulin pump. Hospital Course: Patient was admitted to the medical floor and was continued on IV fluids and IV antibiotic therapy with Rocephin. She was seen by Dr. Baker who recommended continuation of conservative management with IV fluids for acute renal failure. Her creatinine did come down to 3.3 from 3.5 yesterday. She remained afebrile and her tachycardia improved. This evening, patient decided that she wanted to sign out AGAINST MEDICAL ADVICE. I persuaded the patient to stay to complete her treatment until we get the culture results and to stay until her renal function improves but she is adamant that she wants to sign out AGAINST MEDICAL ADVICE to take care of her 5-year-old child. She states that she will contact her kidney doctor on Tuesday for further recommendations. She did not want any antibiotic prescriptions for tomorrow. She understands that her renal function as well as her infection can get worse and could be detrimental to her life. Despite the risks explained, she wanted to sign out AGAINST MEDICAL ADVICE. Vital Signs: Temp: [98.7 ??F (37.1 ??C)-99.3 ??F (37.4 ??C)] 98.7 ??F (37.1 ??C) Heart Rate: [79-138] 99 Resp: [16-18] 18 BP: (79-163)/(32-93) 122/76 Physical Exam: Patient refused. Pertinent Lab Results: Results from last 7 days Lab Units 07/22/18 0702 07/21/18 2337 07/21/18 1750 SODIUM mmol/L 139 137 139 POTASSIUM mmol/L 4.8 5.6* 6.2* CHLORIDE mmol/L 116* 114* 113* CO2 mmol/L 15.0* 12.0* 16.0* BUN mg/dL 46* 47* 52* CREATININE mg/dL 3.30* 3.50* 3.40* CALCIUM mg/dL 8.1* 8.8 9.5 BILIRUBIN mg/dL -- -- 0.3 ALK PHOS U/L -- -- 71 ALT (SGPT) U/L -- -- 26 AST (SGOT) U/L -- -- 16 GLUCOSE mg/dL 86 103* 105* Results from last 7 days Lab Units 07/22/18 0702 07/21/18 1750 WBC 10*3/mm3 9.72 16.02* HEMOGLOBIN g/dL 9.2* 11.5* HEMATOCRIT % 29.7* 35.6* PLATELETS 10*3/mm3 206 243 Results from last 7 days Lab Units 07/21/18 1750 COLOR UA Straw GLUCOSE UA Negative KETONES UA Negative LEUKOCYTES UA Negative PH, URINE 5.5 BILIRUBIN UA Negative UROBILINOGEN UA 0.2 E.U./dL Results from last 7 days Lab Units 07/21/18 2344 BLOODCX No growth at less than 24 hours Pertinent Radiology Results: Imaging Results (all) Procedure Component Value Units Date/Time CT Abdomen Pelvis Without Contrast [[id number]] Collected: 07/21/182029 Updated: 07/21/182030 Narrative: FINAL REPORT CLINICAL HISTORY: . Leukocytosis, UTI, Abd Pain, Renal Insufficiency FINDINGS: There is cholelithiasis. There is no cholecystitis. The liver, spleen and adrenals are normal. There is mild dilation of the left ureter and left renal collecting system with extensive periureteral inflammatory fat stranding. There is no renal or ureteral calculi. The right kidney is normal. The ovaries are normal. Impression: There is minimal dilation of the left ureter and intrarenal collecting system with extensive inflammatory stranding, most likely related to pyelonephritis. Authenticated by Bradley Jiménez MD on 07/21/2018 08:30:27 PM Condition on Discharge: Stable. Code status during the hospital stay: Code Status and Medical Interventions: Ordered at: 07/21/182205 Level Of Support Discussed With: Patient Code Status: CPR Medical Interventions (Level of Support Prior to Arrest): Full Discharge Disposition: Left Against Medical Advice Discharge Medications: Discharge Medications Continue These Medications Instructions Start Date ADMELOG 100 UNIT/ML injection Generic drug: insulin lispro Subcutaneous, 3 Times Daily Before Meals, Uses Insulin pump atorvastatin 40 MG tablet Commonly known as: LIPITOR TAKE 1 TABLET EVERY DAY fenofibrate 145 MG tablet Commonly known as: TRICOR 160 mg, Oral, Every Other Day gabapentin 300 MG capsule Commonly known as: NEURONTIN BID lisinopril 10 MG tablet Commonly known as: PRINIVIL,ZESTRIL Takes 20mg daily ondansetron ODT 4 MG disintegrating tablet Commonly known as: ZOFRAN-ODT 4 mg, Oral, Every 6 Hours PRN sodium bicarbonate 650 MG tablet 1,300 mg, Oral, 2 Times Daily Discharge Diet: Diet Instructions Diet: Consistent Carbohydrate, Cardiac, Renal; Thin Discharge Diet: Consistent Carbohydrate Cardiac Renal Fluid Consistency: Thin Activity at Discharge: Activity Instructions Activity as Tolerated Follow-up Appointments: Follow-up Information Fabiola Guzman MD Follow up in 2 day(s). Specialty: Family Medicine Contact information: [address] [place] [address] [place] [address] Test Results Pending at Discharge: Order Current Status Hemoglobin A1c In process PTH, Intact In process Urine Culture - Urine, Urine, Clean Catch In process Blood Culture With ADITYA - Blood, Arm, Right Preliminary result Jarred Bauman MD 07/22/18 7:47 PM Time spent: 20 min. Dictated utilizing [employer] dictation. documented in this encounter Medications at Time [...] as of this encounter Progress Notes * Chuck Velázquez MD - 07/22/2018 4:34 PM EST Images from the original note were not included. [facility] PROGRESS NOTE Name: Crystal Archer Age: 27 y.o. Sex: female : 1990 Visit Number: [id number] Admission Date: 07/21/2018 Date Of Service: 07/22/18 Primary Care Physician: Fabiola Guzman MD LOS: 1 day : Patient Care Team: Fabiola Guzman MD as PCP - General (Family Medicine): Subjective / Interval History: This is a 27-year-old female with history of diabetes mellitus type 1 with nephropathy, chronic kidney disease stage III was brought to the emergency room by her fianc?? with the above complaints. Patient was seen and examined in the emergency room and the history is obtained from the patient as well as the medical chart. Patient states that she was in her usual state of health until yesterday when she developed left flank pain associated with nausea and vomiting. She had several episodes of vomiting soon followed by watery diarrhea. She denies any history of fever or chills. Does complain ofsome dysuria. Since admission she has been started on IV antibiotic IV fluids and has been feeling a whole lot better. Vital Signs: Temp: [98.7 ??F (37.1 ??C)-99.3 ??F (37.4 ??C)] 98.7 ??F (37.1 ??C) Heart Rate: [79-138] 99 Resp: [16-18] 18 BP: (79-163)/(32-93) 122/76 Intake and output: I/O last 3 completed shifts: In: 2049 [IV Piggyback:2049] Out: - I/O this shift: In: 1120 [P.O.:120; I.V.:1000] Out: - Physical Examination: General Appearance: Alert and cooperative, not in any acute distress. Head: Atraumatic and normocephalic, without obvious abnormality. Eyes: PERRLA, No pallor. Extraocular movements are within normal limits. Neck: Supple, No lymphglands, no bruit Lungs: Chest shape is normal. Breath sounds heard bilaterally equally. No crackles or wheezing. Heart: Normal S1 and S2, no murmur, No JVD Abdomen: Normal bowel sounds, no masses, no organomegaly. Soft non-tender, no guarding, no rebound tenderness Extremities: Moves all extremities well, no edema, no cyanosis, Skin: No bruising or rash. Neurologic: Grossly non focal and moves all extrimities equally. Laboratory results: Results from last 7 days Lab Units 07/22/18 0702 07/21/18 2337 07/21/18 1750 SODIUM mmol/L 139 137 139 POTASSIUM mmol/L 4.8 5.6* 6.2* CHLORIDE mmol/L 116* 114* 113* CO2 mmol/L 15.0* 12.0* 16.0* BUN mg/dL 46* 47* 52* CREATININE mg/dL 3.30* 3.50* 3.40* CALCIUM mg/dL 8.1* 8.8 9.5 BILIRUBIN mg/dL -- -- 0.3 ALK PHOS U/L -- -- 71 ALT (SGPT) U/L -- -- 26 AST (SGOT) U/L -- -- 16 GLUCOSE mg/dL 86 103* 105* Results from last 7 days Lab Units 07/22/18 0702 07/21/18 1750 WBC 10*3/mm3 9.72 16.02* HEMOGLOBIN g/dL 9.2* 11.5* HEMATOCRIT % 29.7* 35.6* PLATELETS 10*3/mm3 206 243 Results from last 7 days Lab Units 07/21/18 2344 BLOODCX No growth at less than 24 hours Radiology results: Imaging Results (last 24 hours) Procedure Component Value Units Date/Time CT Abdomen Pelvis Without Contrast [[id number]] Collected: 07/21/182029 Updated: 07/21/182030 Narrative: FINAL REPORT CLINICAL HISTORY: . Leukocytosis, UTI, Abd Pain, Renal Insufficiency FINDINGS: There is cholelithiasis. There is no cholecystitis. The liver, spleen and adrenals are normal. There is mild dilation of the left ureter and left renal collecting system with extensive periureteral inflammatory fat stranding. There is no renal or ureteral calculi. The right kidney is normal. The ovaries are normal. Impression: There is minimal dilation of the left ureter and intrarenal collecting system with extensive inflammatory stranding, most likely related to pyelonephritis. Authenticated by Bradley Jiménez MD on 07/21/2018 08:30:27 PM I have reviewed the patient's radiology reports. Medication Review: I have reviewed the patients active and prn medications. Assessment: Pyelonephritis, acute Hyperlipidemia Acute renal failure (CMS/HCC) Type 1 diabetes mellitus with stage 3 chronic kidney disease (CMS/HCC) Acute hyperkalemia Essential hypertension Chronic kidney disease, stage IV (severe) (CMS/HCC) Plan: Patient admitted because of acute pyelonephritis who is a type I diabetic and chronic kidney disease. She'll be continued on IV fluids IV antibiotic and the current the insulin now as per orders. Her hyperkalemia has improved back to normal and her leukocytosis has improved also. Chuck Velázquez MD 07/22/18 4:34 PM Please note that portions of this note may have been completed with a voice recognition program. Efforts were made to edit the dictations, but occasionally words are mistranscribed. documented in this encounter H&P Notes * Jarred Bauman MD - 07/21/2018 8:52 PM EST Images from the original note were not included. [facility] HISTORY AND PHYSICAL Name: Crystal Archer Age: 27 y.o. Sex: female : 1990 Visit Number: [id number] Admission Date: 07/21/2018 Date Of Service: 07/21/18 Primary Care Physician: Fabiola Guzman MD Chief Complaint: Nausea, vomiting, diarrhea and left flank pain since yesterday. History Of Presenting Illness: This is a 27-year-old female with history of diabetes mellitus type 1 with nephropathy, chronic kidney disease stage III was brought to the emergency room by her fianc?? with the above complaints. Patient was seen and examined in the emergency room and the history is obtained from the patient as well as the medical chart. Patient states that she was in her usual state of health until yesterday when she developed left flank pain associated with nausea and vomiting. She had several episodes of vomiting soon followed by watery diarrhea. She denies any history of fever or chills. Does complain ofsome dysuria. Patient was evaluated in the emergency room. Her initial temperature was 99.2 and she was tachycardic at 116. Her blood pressure was 156/99 and pulse oxygen saturation was 99% on room air. Blood workdone in the emergency room showed a glucose of 105, sodium 130, potassium of 6.2 and a creatinine of 3.4 (baseline 2.6). Her white count was 16,000. Urinalysis showed evidence of urinary tract infection. Urine test was negative. CT of the abdomen and pelvis done without contrast in the emergency room showed minimal dilatation of the left ureter and intrarenal collecting system with extensive inflammatory stranding most likely related to pyelonephritis. Cholelithiasis was also noted. Patient was given 1 L of normal saline bolus and was given IV antibiotic therapy with Rocephin. She was also given morphine and Zofran for symptomatic control. He was noted to have hyperkalemia and wasgiven IV calcium gluconate and oral Kayexalate. She is subsequently being admitted to the medical floor for further evaluation and management. Patient did have a renal biopsy at [facility] on 06/13/2018 and the pathology report was suggestive of diabetic nephropathy with extensive global and segmental glomerulosclerosis. Patient apparently has refused future dialysis and is currently being evaluated for renal transplant. Beau have history of diabetes mellitus type 1 since the age of 12. I didn't age of 15 she did not have any significant medical treatment but since then she has been on insulin and currently follows up with endocrinology at [facility]. She has insulin pump. Review Of Systems: General ROS: Patient denies any fevers, chills or loss of consciousness. Complains of generalized weakness. Psychological ROS: No history of any hallucinations and delusions. Ophthalmic ROS: No history of any diplopia or transient loss of vision. ENT ROS: No history of sore throat, nasal congestion or ear pain. Allergy and Immunology ROS: No history of rash or itching. Hematological and Lymphatic ROS: No history of neck swelling or easy bleeding. Endocrine ROS: No history of any recent unintentional weight gain or loss. Respiratory ROS: No history of cough or shortness of breath. Cardiovascular ROS: No history of chest pain or palpitations. Gastrointestinal ROS: As per history of present illness. Genito-Urinary ROS: No history of hematuria. Musculoskeletal ROS: No muscle pain. No calf pain. Neurological ROS: No history of any focal weakness. No loss of consciousness. Denies any numbness. Dermatological ROS: No history of any redness or pruritis. Past 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: Past 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: Diagnosis Date ??? Allergic ??? Anxiety ??? Arthritis ??? Chronic constipation ??? Depression ??? Diabetes mellitus (CMS/HCC) ??? Excessive thirst ??? H/O mammogram 2014 ??? Headache ??? Hot skin ??? Hyperlipidemia ??? Hypertension ??? Injury of back ??? Leg cramps ??? Pap smear for cervical cancer screening 11/08/2015 ??? Sinusitis ??? Urinary tract infection Past Surgical history: Past Surgical History: Procedure Laterality Date ??? SECTION 10/17/2012 ??? SECTION Social History: Social History Socioeconomic History ??? Marital status: Spouse name: Not on file ??? Number of children: Not on file ??? Years of education: Not on file ??? Highest education level: Not on file Social Needs ??? Financial resource strain: Not on file ??? Food insecurity - worry: Not on file ??? Food insecurity - inability: Not on file ??? Transportation needs - medical: Not on file ??? Transportation needs - non-medical: Not on file Occupational History ??? Not [...] file Social History Narrative Merged History Encounter Family History: History reviewed. No pertinent family history. Allergies: Patient has no known allergies. Home Medications: Prior to Admission Medications Prescriptions Last Dose Informant Patient Reported? Taking? atorvastatin (LIPITOR) 40 MG tablet Yes No TAKE 1 TABLET EVERY DAY fenofibrate (TRICOR) 145 MG tablet Self Yes No Take 160 mg by mouth Every Other Day. gabapentin (NEURONTIN) 300 MG capsule Yes No BID HUMALOG 100 UNIT/ML injection Yes No USE DIRECTED PER INSULIN PUMP THERAPY.MAXIMUM DAILY DOSE OF 150 UNITS lisinopril (PRINIVIL,ZESTRIL) 10 MG tablet Yes No TAKE 1 TABLET EVERY DAY ondansetron ODT (ZOFRAN-ODT) 4 MG disintegrating tablet No No Take 1 tablet by mouth Every 6 (Six) Hours As Needed for Nausea or Vomiting. sodium bicarbonate 650 MG tablet No No Take 2 tablets by mouth 2 (Two) Times a Day. ED Medications: Medications sodium chloride 0.9 % flush 10 mL (not administered) sodium polystyrene (KAYEXALATE) 15 GM/60ML suspension 30 g (not administered) sodium chloride 0.9 % bolus 1,000 mL (1,000 mL Intravenous Restarted 07/21/182015) ondansetron (ZOFRAN) injection 4 mg (4 mg Intravenous Given 07/21/181824) calcium gluconate injection 1 g (1 g Intravenous Given 07/21/181847) cefTRIAXone (ROCEPHIN) IVPB 1 g/50ml dextrose (premix) (0 g Intravenous Stopped 07/21/182016) Morphine sulfate (PF) injection 4 mg (4 mg Intravenous Given 07/21/182011) Vital Signs: Temp: [99.2 ??F (37.3 ??C)] 99.2 ??F (37.3 ??C) Heart Rate: [103-116] 103 Resp: [16] 16 BP: (134-163)/(71-99) 152/87 07/21/18 1625 Weight: 92.1 kg (203 lb) Body mass index is 33.78 kg/m??. Physical Exam: General Appearance: Alert and cooperative, not in any acute distress. Head: Atraumatic and normocephalic, without obvious abnormality. Eyes: PERRLA, conjunctivae and sclerae normal, no Icterus. No pallor. Extraocular movements are within normal limits. Ears: Ears appear intact with no abnormalities noted. Throat: No oral lesions, no thrush, oral mucosa moist. Neck: Supple, trachea midline, no thyromegaly, no carotid bruit. Back: No kyphoscoliosis present. No tenderness to palpation, range of motion normal. Lungs: Chest shape is normal. Breath sounds heard bilaterally equally. No crackles or wheezing. No Pleural rub or bronchial breathing. Heart: Normal S1 and S2, no murmur, no gallop, no rub. No JVD. Abdomen: Normal bowel sounds, no masses, no organomegaly. Soft, obese, no guarding, no rebound tenderness. Tenderness noted in the left flank and left lower quadrant as well as the left renal angle. Extremities: Moves all extremities well, no edema, no cyanosis, no clubbing. Large scar noted in the medial aspect of the left lower leg from previous diabetic ulcer. Insulin pump noted in the left arm. Pulses: Pulses palpable and equal bilaterally. Skin: No bleeding, bruising or rash. Neurologic: Alert and oriented x 3. Moves all four limbs equally. No tremors. No facial asymmetry. Laboratory data: I have reviewed the labs done in the emergency room. Results from last 7 days Lab Units 07/21/18 1750 SODIUM mmol/L 139 POTASSIUM mmol/L 6.2* CHLORIDE mmol/L 113* CO2 mmol/L 16.0* BUN mg/dL 52* CREATININE mg/dL 3.40* CALCIUM mg/dL 9.5 BILIRUBIN mg/dL 0.3 ALK PHOS U/L 71 ALT (SGPT) U/L 26 AST (SGOT) U/L 16 GLUCOSE mg/dL 105* Results from last 7 days Lab Units 07/21/18 1750 WBC 10*3/mm3 16.02* HEMOGLOBIN g/dL 11.5* HEMATOCRIT % 35.6* PLATELETS 10*3/mm3 243 Results from last 7 days Lab Units 07/21/18 1750 COLOR UA Straw GLUCOSE UA Negative KETONES UA Negative LEUKOCYTES UA Negative PH, URINE 5.5 BILIRUBIN UA Negative UROBILINOGEN UA 0.2 E.U./dL EKG: EKG done in the emergency room was reviewed by me. It shows sinus tachycardia at 105 bpm. Moderate right axis deviation. No significant ST-T changes were noted. Radiology: Imaging Results (last 72 hours) Procedure Component Value Units Date/Time CT Abdomen Pelvis Without Contrast [[id number]] Collected: 07/21/182029 Updated: 07/21/182030 Narrative: FINAL REPORT CLINICAL HISTORY: . Leukocytosis, UTI, Abd Pain, Renal Insufficiency FINDINGS: There is cholelithiasis. There is no cholecystitis. The liver, spleen and adrenals are normal. There is mild dilation of the left ureter and left renal collecting system with extensive periureteral inflammatory fat stranding. There is no renal or ureteral calculi. The right kidney is normal. The ovaries are normal. Impression: There is minimal dilation of the left ureter and intrarenal collecting system with extensive inflammatory stranding, most likely related to pyelonephritis. Authenticated by Bradley Jiménez MD on 07/21/2018 08:30:27 PM Assessment: 1. Acute left pyelonephritis, present on admission. 2. Sepsis, secondary to #1, present on admission. 3. Acute renal failure, secondary to dehydration, present on admission. 4. Acute hyperkalemia secondary to #3, present on admission. 5. Diabetes mellitus type 1 with nephropathy. 6. Chronic kidney disease stage III. 7. Essential hypertension. Plan: Ms. Archer is currently being admitted to the medical floor with telemetry. She will be admitted at an inpatient as she will need more than to midnights hospital stay. She will be continued on IV antibiotic therapy with Rocephin for pyelonephritis. We will get urine culture. Patient does have worsening of her creatinine level. We will continue her on IV hydration with normal saline at 100 mL per hour. She has already received 1 L of normal saline in the emergency room. We will repeat her creatinine level in the morning. We will consult Dr. Baker from nephrology in themorning. She will be continued on her home medications except for lisinopril which I will hold due to her worsening creatinine level. I have advised her that she will have to continue her insulin pump and manage it by herself while she is in the hospital and she is agreeable for that. We will place her on before meals and at bedtime fingerstick glucose tests. She will also be placed on heparin for DVT prophylaxis. Further recommendations depend upon her clinical course. Jarred Bauman MD 07/21/18 8:52 PM Dictated utilizing [employer] dictation. documented in this encounter Consult Notes * Ricardo Baker MD, FASN - 07/22/2018 10:28 AM ESTAssociated Order(s): IP CONSULT TO NEPHROLOGY Images from the original note were not included. [facility] Consult[facility] Referring Provider: Christopher Aggarwal, * Reason for Consultation: Acute Kidney Injury and associated problems. CKD stage 4 Subjective Chief complaint Chief Complaint Patient presents with ??? Abdominal Pain History of present illness: Patient is unfortunate 27-year-old white female with long-standing history of diabetes and fairly advanced chronic kidney disease who presented with to the emergency department with nausea vomiting and diarrhea there was no blood in the stool or in the vomitus. She appears to have left-sided abdominal pain and on CT noted to have some dilation and inflammation of the kidney and ureter on that side. She was started on IV antibiotics and admitted. I was consulted because of worsening renal function, patient does note that she has stage IV chronic kidney disease and lost visit to the electronics technician the renal function was described as less than 20% functioning. She was given some information about dialysis as well. I have reviewed labs/imaging/records from this hospitalization, including ER staff and admitting/attending physicians H/P's and progress notes to establish a comprehensive understanding of this patient's clinical hospital course, as well as to establish plan of care appropriately. Past 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: Diagnosis Date ??? Allergic [...] SECTION History reviewed. No pertinent family history. positive h/o ESRD she has 1 aunt that had a is about to start dialysis. Social History Tobacco Use ??? Smoking status: Current Some Day Smoker Packs/day: 2.00 Years: 10.00 Pack years: 20.00 Types: Cigarettes Substance Use Topics ??? Alcohol use: Yes ??? Drug use: No Medications Prior to Admission Medication Sig Dispense Refill Last Dose ??? insulin lispro (ADMELOG) 100 UNIT/ML injection Inject under the skin into the appropriate area as directed 3 (Three) Times a Day Before Meals. Uses Insulin pump ??? atorvastatin (LIPITOR) 40 MG tablet TAKE 1 TABLET EVERY DAY 0 06/12/2018 at Unknown time ??? fenofibrate (TRICOR) 145 MG tablet Take 160 mg by mouth Every Other Day. ??? gabapentin (NEURONTIN) 300 MG capsule BID 0 06/12/2018 at Unknown time ??? lisinopril (PRINIVIL,ZESTRIL) 10 MG tablet Takes 20mg daily 0 Not Taking ??? ondansetron ODT (ZOFRAN-ODT) 4 MG disintegrating tablet Take 1 tablet by mouth Every 6 (Six) Hours As Needed for Nausea or Vomiting. 20 tablet 0 ??? sodium bicarbonate 650 MG tablet Take 2 tablets by mouth 2 (Two) Times a Day. 240 tablet 1 Allergies: Patient has no known allergies. Review of Systems 1. Constitutional: Negative for fever. Negative for chills. Denies any diaphoresis, fatigue and unexpected weight change. 2. HENT: Negative for congestion and hearing loss. 3. Eyes: Negative for redness and visual disturbance. 4. Respiratory: negative for shortness of breath or cough. Negative for chest pain 5. Cardiovascular: Negative for chest pain and chest tightness or palpitations. 6. Gastrointestinal: Positive for abdominal pain no distention, and blood in stool. Positive any Nausea, vomiting, diarrhea denies any constipation. 7. Endocrine: Negative for heat or cold intolerance. 8. Genitourinary: Negative for difficulty urinating, dysuria and frequency. 9. Musculoskeletal: Negative for arthralgias, back pain. Denies any myalgias. 10. Skin: Negative for color change, rash and wound. 11. Neurological: Negative for syncope, weakness and headaches. 12. Hematological: Negative for adenopathy. Does not bruise/bleed easily. 13. Psychiatric/Behavioral: Negative for confusion. The patient is not nervous/anxious. Objective Vital Signs BP 122/78 (BP Location: Left arm, Patient Position: Lying) Pulse 93 Temp 99 ??F (37.2 ??C) (Oral) Resp 18 Ht 165.1 cm (65 ) Wt 96.9 kg (213 lb 9.6 oz) SpO2 100% BMI 35.54 kg/m?? I/O this shift: In: 1120 [P.O.:120; I.V.:1000] Out: - Intake/Output Summary (Last 24 hours) at 07/22/2018 1445 Last data filed at 07/22/2018 1427 Gross per 24 hour Intake 3170 ml Output -- Net 3170 ml Physical Exam: General Appearance: ?? Alert, cooperative, in no acute distress. Head: ?? Normocephalic, without obvious abnormality, atraumatic. Eyes:? Normal, conjunctivae and sclerae, no icterus, no pallor, corneas clear, PERRLA?? Throat:?? Oral mucosa dry?? Neck:?? No adenopathy, supple, trachea midline, no thyromegaly, no carotid bruit, no JVD?? Back: ?? No CVA tenderness on Percussion. Lungs: ?? Clear to auscultation and fair air movement noted. ?? Heart:: ?? Regular rhythm and normal rate, normal S1 and S2. Abdomen: ?? Obese. Normal bowel sounds, no masses, no organomegaly, soft non- tender, non-distended,no guarding, no rebound tenderness?? Genital urinary: No urinary bladder palpable Extremities:?? Moves all extremities, no edema, no cyanosis, no redness. Pulses:?? Pulses palpable and equal bilaterally??but weak. Skin:?? No bleeding, bruising or rash?? Neurologic:?? Cranial nerves grossly intact, move all extremities Lab Results (last 7 days) Procedure Component Value Units Date/Time Basic Metabolic Panel [[id number]] (Abnormal) Collected: 07/22/18701 Specimen: Blood Updated: 07/22/18737 Glucose 86 mg/dL BUN 46 mg/dL Creatinine 3.30 mg/dL Sodium 139 mmol/L Potassium 4.8 mmol/L Chloride 116 mmol/L CO2 15.0 mmol/L Calcium 8.1 mg/dL eGFR Non Amer 17 mL/min/1.73 BUN/Creatinine Ratio 13.9 Anion Gap 12.8 mmol/L Narrative: GFR Normal >60 Chronic Kidney Disease <60 Kidney Failure <15 CBC Auto Differential [[id number]] (Abnormal) Collected: 07/22/18701 Specimen: Blood Updated: 07/22/18737 WBC 9.72 10*3/mm3 RBC 3.19 10*6/mm3 Hemoglobin 9.2 g/dL Hematocrit 29.7 % MCV 93.1 fL MCH 28.8 pg MCHC 31.0 g/dL RDW 12.7 % RDW-SD 43.6 fl MPV 13.0 fL Platelets 206 10*3/mm3 Neutrophil % 58.7 % Lymphocyte % 33.7 % Monocyte % 5.5 % Eosinophil % 1.6 % Basophil % 0.2 % Immature Grans % 0.3 % Neutrophils, Absolute 5.70 10*3/mm3 Lymphocytes, Absolute 3.28 10*3/mm3 Monocytes, Absolute 0.53 10*3/mm3 Eosinophils, Absolute 0.16 10*3/mm3 Basophils, Absolute 0.02 10*3/mm3 Immature Grans, Absolute 0.03 10*3/mm3 nRBC 0.0 /100 WBC POC Glucose Once [[id number]] (Normal) Collected: 07/22/18645 Specimen: Blood Updated: 07/22/18649 Glucose 92 mg/dL Comment: Serial Number: [id number]: [id number] Procalcitonin [[id number]] (Abnormal) Collected: 07/21/182336 Specimen: Blood Updated: 07/22/18104 Procalcitonin 0.59 ng/mL Narrative: As a Marker for Sepsis (Non-Neonates): 1. <0.5 ng/mL represents a low risk of severe sepsis and/or septic shock. 2. >2 ng/mL represents a high risk of severe sepsis and/or septic shock. As a Marker for Lower Respiratory Tract Infections that require antibiotic therapy: PCT on Admission Antibiotic Therapy 6-12 Hrs later > 0.5 Strongly Recommended >0.25 - <0.5 Recommended 0.1 - 0.25 Discouraged Remeasure/reassess PCT <0.1 Strongly Discouraged Remeasure/reassess PCT PCT values of < 0.5 ng/mL do not exclude an infection, because localized infections (without systemic signs) may be associated with such low concentrations, or a systemic infection in its initial stages (< 6 hours). Furthermore, increased PCT can occur without infection. PCT concentrations bet ween 0.5 and 2.0 ng/mL should be interpreted taking into account the patient's history. It is recommended to retest PCT within 6-24 hours if any concentrations < 2 ng/mL are obtained. Basic Metabolic Panel [[id number]] (Abnormal) Collected: 07/21/182336 Specimen: Blood Updated: 07/22/18 0012 Glucose 103 mg/dL BUN 47 mg/dL Creatinine 3.50 mg/dL Sodium 137 mmol/L Potassium 5.6 mmol/L Chloride 114 mmol/L CO2 12.0 mmol/L Calcium 8.8 mg/dL eGFR Non Amer 16 mL/min/1.73 BUN/Creatinine Ratio 13.4 Anion Gap 16.6 mmol/L Narrative: GFR Normal >60 Chronic Kidney Disease <60 Kidney Failure <15 Lactic Acid, Plasma [[id number]] (Normal) Collected: 07/21/182336 Specimen: Blood Updated: 07/22/18 0007 Lactate 1.0 mmol/L Blood Culture With ADITYA - Blood, Arm, Right [[id number]] Collected: 07/21/18 2344 Specimen: Blood from Arm, Right Updated: 07/21/18 2359 POC Glucose Once [[id number]] (Normal) Collected: 07/21/18 2323 Specimen: Blood Updated: 07/21/18 2330 Glucose 100 mg/dL Comment: Serial Number: [id number]: [id number] Hemoglobin A1c [[id number]] Collected: 07/21/181749 Specimen: Blood Updated: 07/21/18 223 POC Glucose Once [[id number]] (Normal) Collected: 07/21/182145 Specimen: Blood Updated: 07/21/182149 Glucose 90 mg/dL Comment: Serial Number: [id number]: [id number] Urine Culture - Urine, Urine, Clean Catch [[id number]] Collected: 07/21/181749 Specimen: Urine, Clean Catch Updated: 07/21/182123 Urinalysis, Microscopic Only - Urine, Clean Catch [[id number]] (Abnormal) Collected: 07/21/181749 Specimen: Urine, Clean Catch Updated: 07/21/181819 RBC, UA 3-5 /HPF WBC, UA 31-50 /HPF Bacteria, UA 1+ /HPF Squamous Epithelial Cells, UA 0-2 /HPF Hyaline Casts, UA None Seen /LPF WBC Clumps, UA Small/1+ /HPF Methodology Manual Light Microscopy Comprehensive Metabolic Panel [[id number]] (Abnormal) Collected: 07/21/181749 Specimen: Blood Updated: 07/21/181819 Glucose 105 mg/dL BUN 52 mg/dL Creatinine 3.40 mg/dL Sodium 139 mmol/L Potassium 6.2 mmol/L Chloride 113 mmol/L CO2 16.0 mmol/L Calcium 9.5 mg/dL Total Protein 7.8 g/dL Albumin 4.60 g/dL ALT (SGPT) 26 U/L AST (SGOT) 16 U/L Alkaline Phosphatase 71 U/L Total Bilirubin 0.3 mg/dL eGFR Non Amer 16 mL/min/1.73 Globulin 3.2 gm/dL A/G Ratio 1.4 g/dL BUN/Creatinine Ratio 15.3 Anion Gap 16.2 mmol/L Narrative: GFR Normal >60 Chronic Kidney Disease <60 Kidney Failure <15 Urinalysis With Microscopic If Indicated (No Culture) - Urine, Clean Catch [[id number]] (Abnormal) Collected: 07/21/181749 Specimen: Urine, Clean Catch Updated: 07/21/181809 Color, UA Straw Appearance, UA Slightly Cloudy pH, UA 5.5 Specific [place], UA 1.025 Glucose, UA Negative Ketones, UA Negative Bilirubin, UA Negative Blood, UA Trace Protein, UA >=300 mg/dL (3+) Leuk Esterase, UA Negative Nitrite, UA Negative Urobilinogen, UA 0.2 E.U./dL , Urine - Urine, Clean Catch [[id number]] (Normal) Collected: 07/21/181749 Specimen: Urine, Clean Catch Updated: 07/21/181805 HCG, Urine QL Negative CBC & Differential [[id number]] Collected: 07/21/181749 Specimen: Blood Updated: 07/21/181804 Narrative: The following orders were created for panel order CBC & Differential. Procedure Abnormality Status --------- ------ CBC Auto Differential[[id number]] Abnormal Final result Please view results for these tests on the individual orders. CBC Auto Differential [[id number]] (Abnormal) Collected: 07/21/181749 Specimen: Blood Updated: 07/21/181804 WBC 16.02 10*3/mm3 RBC 3.94 10*6/mm3 Hemoglobin 11.5 g/dL Hematocrit 35.6 % MCV 90.4 fL MCH 29.2 pg MCHC 32.3 g/dL RDW 12.5 % RDW-SD 41.1 fl MPV 13.2 fL Platelets 243 10*3/mm3 Neutrophil % 82.0 % Lymphocyte % 11.2 % Monocyte % 4.7 % Eosinophil % 1.5 % Basophil % 0.2 % Immature Grans % 0.4 % Neutrophils, Absolute 13.12 10*3/mm3 Lymphocytes, Absolute 1.79 10*3/mm3 Monocytes, Absolute 0.76 10*3/mm3 Eosinophils, Absolute 0.24 10*3/mm3 Basophils, Absolute 0.04 10*3/mm3 Immature Grans, Absolute 0.07 10*3/mm3 nRBC 0.0 /100 WBC Imaging Results (last 72 hours) Procedure Component Value Units Date/Time CT Abdomen Pelvis Without Contrast [[id number]] Collected: 07/21/182029 Updated: 07/21/182030 Narrative: FINAL REPORT CLINICAL HISTORY: . Leukocytosis, UTI, Abd Pain, Renal Insufficiency FINDINGS: There is cholelithiasis. There is no cholecystitis. The liver, spleen and adrenals are normal. There is mild dilation of the left ureter and left renal collecting system with extensive periureteral inflammatory fat stranding. There is no renal or ureteral calculi. The right kidney is normal. The ovaries are normal. Impression: There is minimal dilation of the left ureter and intrarenal collecting system with extensive inflammatory stranding, most likely related to pyelonephritis. Authenticated by Bradley Jiménez MD on 07/21/2018 08:30:27 PM atorvastatin 40 mg Oral Daily ceftriaxone 1 g Intravenous Q24H gabapentin 300 mg Oral Q12H heparin (porcine) 5,000 Units Subcutaneous Q12H lactobacillus acidophilus 1 capsule Oral BID sodium bicarbonate 1,300 mg Oral BID sodium chloride 3 mL Intravenous Q12H Sodium chloride 100 mL/hr Last Rate: 100 mL/hr (07/22/18 1427) Assessment/Plan 1. Acute renal failure ([facility]): She denies any use of nonsteroidals used to take a lot of ibuprofen but has not taken any for the last 2-3 months. 2. 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 (CMS/HCC): Poorly controlled has hemoglobin A1c in the range of 11-14. 3. Acute hyperkalemia: Resolved. 4. Pyelonephritis, acute: Treated 5. Hyperlipidemia 6. Essential hypertension 7. Obesity 8. Anemia: It needs further evaluation. 9. Bone and mineral metabolism and chronic kidney disease: Check PTH she has normal phosphorus. Also check vitamin D levels. Plan: ?? Continue with her current treatment plan. ?? Details about chronic kidney disease and related issues discussed with the patient, she feels comfortable and does understand. ?? She had multiple questions about transplant as well as dialysis. All questions were onset. ?? Surveillance labs. ?? Details were discussed with the patient no family in the room. ?? Details were also discussed with the hospitalist service. ?? Further recommendations will depend on clinical course of the patient during the current hospitalization. ? I also discussed the details with the nursing staff. ?? Rest as ordered. In closing, I sincerely appreciate opportunity to participate in care of this patient. If I can be of any further assistance with the management of this patient, please don???t hesitate to contact me. Ricardo Baker MD, LUCIANO 07/22/18 2:45 PM Dictated using Dragon. documented in this encounter Nursing Notes * Allyn Rivas, RN - 07/22/2018 7:54 PM EST Pt noted to be upset, pt states I want my AMA papers, I'm signing out now . Pt states she was leaving d/t home issues with her child. Explained to pt importance of staying and getting treatment. Pt states she will not change her mind. Dr. Bauman called and informed of pt's decision. Dr. Bauman came and talked to pt. Pt continues to state she is leaving, pt removed telemetry herself. detail supervisor Rabia informed. IV removed cathlon intact. Pt signed AMA paper, pt again informed risks of leaving. Pt verbalized understanding. * Fabiola Wolf RN - 07/22/2018 5:53 PM EST Problem: Diabetes, Type 2 (Adult) Goal: Signs and Symptoms of Listed Potential Problems Will be Absent, Minimized or Managed (Diabetes, Type 2) Outcome: Ongoing (interventions implemented as appropriate) * Fabiola Wolf RN - 07/22/2018 12:14 PM EST Problem: Diabetes, Type 2 (Adult) Goal: Signs and Symptoms of Listed Potential Problems Will be Absent, Minimized or Managed (Diabetes, Type 2) Outcome: Ongoing (interventions implemented as appropriate) * Bing Tomlin RN - 07/22/2018 2:09 AM EST Problem: Diabetes, Type 2 (Adult) Goal: Signs and Symptoms of Listed Potential Problems Will be Absent, Minimized or Managed (Diabetes, Type 2) Outcome: Ongoing (interventions implemented as appropriate) 07/22/18 0208 Goal/Outcome Evaluation Problems Assessed (Type 2 Diabetes) all Problems Present (Type 2 Diabetes) hyperglycemia Problem: Kidney Disease, Chronic/End Stage Renal Disease (Adult) Goal: Signs and Symptoms of Listed Potential Problems Will be Absent, Minimized or Managed (Kidney Disease, Chronic/End Stage Renal Disease) Outcome: Ongoing (interventions implemented as appropriate) 07/22/18 0208 Goal/Outcome Evaluation Problems Assessed (Chronic Kidney Disease/ESRD) all Problems Present (Chronic Kidney/ESRD) situational response;electrolyte imbalance;infection documented in this encounter ED Notes * Bing Tomlin RN - 07/22/2018 2:20 AM EST Provided pt with a snack pack. She states no further needs at this time. Bing Tomlin RN 07/22/18 0221 * Silvia Mcmahan RN - 07/21/2018 10:31 PM EST Notified pharm of pts boarding status; requested order meds. Silvia Mcmahan RN 07/21/182231 * Philomena Oliveira - 07/21/2018 8:[address] Mitul Wetzel. Philomena Oliveira 07/21/182033 * Rashard Moody PA-C - 07/21/2018 4:55 PM ESTAssociated Order(s): Splint - Cast - Strapping Subjective Hx of IDDM since 12 years old. Did not have medical care from age [age], had intermittent care/insulin use since age 15 however recently had renal biopsy at [facility] 05/2018 showing Stage III-IV kidney failure and damage due to diabetes per pt. Pt states just beginning process of getting on renal transplant list as she has refused any dialysis. States reason for visit today is diarrhea and n/v since last pm. States vomited 12 times and 12+ times of wattery/non bloody diarrhea since last night. Pain in LLQ began around 1330 today. Review of Systems Gastrointestinal: Positive for abdominal pain, diarrhea, nausea and vomiting. Genitourinary: Negative for dysuria, vaginal bleeding and vaginal discharge. All other systems reviewed and are negative. [...] regular rhythm. Pulmonary/Chest: Effort normal. Abdominal: Soft. Normal appearance and bowel sounds are normal. There is tenderness in the left lower quadrant. There is no rigidity, no rebound, no guarding, no tenderness at McBurney's point and negative Cornelius's sign. Neurological: She is alert. Skin: Skin is warm and dry. Psychiatric: She has a normal mood and affect. Her behavior is normal. Splint - Cast - Strapping Date/Time: 07/22/2018 12:13 AM Performed by: Rashard Moody PA-C Authorized by: Phill Gama DO Consent: Consent obtained: Verbal Consent given by: Patient Pre-procedure details: Sensation: Normal Procedure details: Laterality: Right Location: Hand Hand: R hand Splint type: Ulnar gutter Supplies: Cotton padding and Ortho-Glass Post-procedure details: Pain: Improved Sensation: Normal Patient tolerance of procedure: Tolerated well, no immediate complications ED Course ED Course as of Aug 05 31TueJul 21, 2018 1846 EKG interpreted me: Sinus tachycardia, right axis, no acute ST/T changes, this is an abnormal EKG [MP] ED Course User Index [MP] Christopher Aggarwal MD [facility] Final diagnoses: Pyelonephritis, acute Acute renal failure superimposed on chronic kidney disease, unspecified CKD stage, unspecified acute renal failure type ([facility]) Rashard Moody PA-C 07/21/182045 Rashard Moody PA-C 07/22/18 0016 Rashard Moody PA-C 08/05/18 003 Cosigned by Christopher Aggarwal MD at 08/07/2018 6:59 AM EST Associated attestation - Christopher Aggarwal MD - 08/07/2018 6:59 AM EST For this patient encounter, I reviewed the WEIGHT LOSS SALES CONSULTANT or PA documentation, treatment plan, and medical decision making. Christopher Aggarwal MD 08/07/2018 6:59 AM documented in this encounter Plan of Treatment Not on file documented as of this encounter Procedures Procedure Name Priority Date/Time Associated Diagnosis Comments POCT GLUCOSE FINGERSTICK Routine 07/22/2018 4:38 PM EST POCT GLUCOSE FINGERSTICK Routine 07/22/2018 12:08 PM EST PTH, INTACT Routine 07/22/2018 7:17 AM EST CBC WITH AUTO DIFFERENTIAL Routine 07/22/2018 7:02 AM EST BASIC METABOLIC PANEL Routine 07/22/2018 7:02 AM EST POCT GLUCOSE FINGERSTICK Routine 07/22/2018 6:46 AM EST BLOOD CULTURE WITH ADITYA Routine 9 11:44 PM EST PROCALCITONIN STAT 07/21/2018 11:37 PM EST LACTIC ACID, PLASMA STAT 07/21/2018 1 1:37 PM EST BASIC METABOLIC PANEL Timed 07/21/2018 11:37 PM EST POCT GLUCOSE FINGERSTICK Routine 07/21/2018 11:23 PM EST POCT GLUCOSE FINGERSTICK Routine 07/21/2018 9:[address] ABDOMEN PELVIS WO CONTRAST STAT 07/21/2018 7:18 PM EST URINALYSIS, MICROSCOPIC ONLY STAT 07/21/2018 5:50 PM EST URINALYSIS W/ MICROSCOPIC IF INDICATED (NO CULTURE) STAT 07/21/2018 5:50 PM EST CBC WITH AUTO DIFFERENTIAL STAT 07/21/2018 5:50 PM EST , URINE STAT 07/21/2018 5:50 PM EST CBC AND DIFFERENTIAL STAT 07/21/2018 5:50 PM EST URINE CULTURE Routine 07/21/2018 5:50 PM EST HEMOGLOBIN A1C Add-On 07/21/2018 5:50 PM EST COMPREHENSIVE METABOLIC PANEL STAT 07/21/2018 5:50 PM EST SCANNED - TELEMETRY 07/21/2018 documented in this encounter Results * (ABNORMAL) POC Glucose Once (07/22/2018 4:38 PM EST) Glucose 207(H) 70 - 130 mg/dL 07/22/2018 4:46 PM EST [facility] Comment:Serial Number: [id number] Blood 07/22/2018 4:38 PM EST 07/22/2018 4:46 PM EST us Jarred Bauman MD POINT OF CARE TEST ORDERABLES Fi nal Result [facility]
[address] [id number], * (ABNORMAL) POC Glucose Once (07/22/2018 12:08 PM EST) Glucose 233(H) 70 - 130 mg/dL 07/22/2018 12:20 PM EST [facility] Comment:Serial Number: [id number] Blood 07/22/2018 12:0 8 PM EST 07/22/2018 12:20 PM EST us Jarred Bauman MD POINT OF CARE TEST ORDERABLES Fi nal Result Performing Organization Address City/[facility]/ZIP Co de Phone Number [facility]
[address] [place] [address], [place] [phone] * (ABNORMAL) PTH, Intact (07/22/2018 7:17 AM EST) Pathologist [facility] PTH, Intact 123(H) 15 - 65 pg/mL 07/24/2018 2:13 PM EST [facility] Blood Venipuncture / Unknown 07/22/2018 7:17 AM EST 07/22/2018 3:23 PM EST Narrative [facility] - 07/24/2018 2:13 PM EST Performed at: ?? - [address], [place], [place] ??[id number] Spearer: Jacob Whaley PhD, Phone: ??[phone] Ricardo Baker MD, [facility] ORDERABLES Amy l Result Performing Organization Address City/[facility] Co de Phone Number [facility] [address] [place] [address], [place] [phone] * (ABNORMAL) CBC Auto Differential (07/22/2018 7:02 AM EST) [facility] WBC 9.72 4.80 - 10.80 10*3/mm3 07/22/2018 7:38 AM [facility] RBC 3.19(L) 4.20 - 5.40 10*6/mm3 07/22/2018 7:38 AM [facility] Hemoglobin 9.2(L) 12.0 - 16.0 g/dL 07/22/2018 7:38 AM [facility] Hematocrit 29.7(L) 37.0 - 47.0 % 07/22/2018 7:38 AM [facility] MCV 93.1 81.0 - 99.0 fL 07/22/2018 7:38 AM [facility] MCH 28.8 27.0 - 31.0 pg 07/22/2018 7:38 AM [facility] MCHC 31.0 30.0 - 37.0 g/dL 07/22/2018 7:38 AM [facility] RDW 12.7 11.5 - 14.5 % 07/22/2018 7:38 AM [facility] RDW-SD 43.6 37.0 - 54.0 fl 07/22/2018 7:38 AM [facility] MPV 13.0(H) 6.0 - 12.0 fL 07/22/2018 7:38 AM [facility] Platelets 206 130 - 400 10*3/mm3 07/22/2018 7:38 AM [facility] Neutrophil % 58.7 37.0 - 80.0 % 07/22/2018 7:38 AM [facility] Lymphocyte % 33.7 10.0 - 50.0 % 07/22/2018 7:38 AM [facility] Monocyte % 5.5 0.0 - 12.0 % 07/22/2018 7:38 AM [facility] [facility] Eosinophil % 1.6 0.0 - 7.0 % 07/22/2018 7:38 AM [facility] Basophil % 0.2 0.0 - 2.5 % 07/22/2018 7:38 AM [facility] Immature Grans % 0.3 0.0 - 0.6 % 07/22/2018 7:38 AM [facility] Neutrophils, Absolute 5.70 2.00 - 6.90 10*3/mm3 07/22/2018 7:38 AM [facility] Lymphocytes, Absolute 3.28 0.60 - 3.40 10*3/mm3 07/22/2018 7:38 AM [facility] Monocytes, Absolute 0.53 0.00 - 0.90 10*3/mm3 07/22/2018 7:38 AM [facility] Eosinophils, Absolute 0.16 0.00 - 0.70 10*3/mm3 07/22/2018 7:38 AM [facility] Basophils, Absolute 0.02 0.00 - 0.20 10*3/mm3 07/22/2018 7:38 AM [facility] Immature Grans, Absolute 0.03 0.00 - 0.06 10*3/mm3 07/22/2018 7:38 AM [facility] nRBC 0.0 0.0 - 0.0 /100 WBC 07/22/2018 7:38 AM [facility] Blood Venipuncture / Unknown 07/22/2018 7:02 AM EST 07/22/2018 7:24 AM EST Jarred Bauman MD LAB BLOOD ORDERABLES Final Resul t [facility]
[address] [id number], * (ABNORMAL) Basic Metabolic Panel (07/22/2018 7:02 AM EST) Glucose 86 74 - 98 mg/dL 07/22/2018 7:38 AM [facility] BUN 46(H) 7 - 20 mg/dL 07/22/2018 7:38 AM [facility] Creatinine 3.30(H) 0.60 - 1.30 mg/dL 07/22/2018 7:38 AM [facility] Sodium 139 137 - 145 mmol/L 07/22/2018 7:38 AM [facility] Potassium 4.8 3.5 - 5.1 mmol/L 07/22/2018 7:38 AM [facility] Chloride 116(H) 98 - 107 mmol/L 07/22/2018 7:38 AM [facility] CO2 15.0(L) 26.0 - 30.0 mmol/L 07/22/2018 7:38 AM [facility] Calcium 8.1(L) 8.4 - 10.2 mg/dL 07/22/2018 7:38 AM [facility] eGFR Non Amer 17(L) >60 mL/min/1.7 3 07/22/2018 7:38 AM [facility] BUN/Creatinine Ratio 13.9 7.1 - 23.5 07/22/2018 7:38 AM EST [facility] Anion Gap 12.8 10.0 - 20.0 mmol/L 07/22/2018 7:38 AM EST [facility] Blood Venipuncture / Unknown 07/22/2018 7:02 AM EST 07/22/2018 7:24 AM EST Narrative [facility] - 07/22/2018 7:38 AM EST GFR Normal >60 Chronic Kidney Disease <60 Kidney Failure <15 Jarred Bauman MD LAB BLOOD ORDERABLES Final Resul t Performing Organization Address City/[facility]/ZIP Co de Phone Number [facility]
[address] [place] [address], * POC Glucose Once (07/22/2018 6:46 AM EST) Glucose 92 70 - 130 mg/dL 07/22/2018 6:50 AM EST [facility] Comment:Serial Number: [id number] Blood 07/22/2018 6:46 AM EST 07/22/2018 6:50 AM EST Phill Gama DO POINT OF CARE TEST ORDERABLES Final Result Performing Organization Address [facility]/ZIP Co de Phone Number [facility]
[address] [place] [address], * Blood Culture With ADITYA - Blood, Arm, Right (07/21/2018 11:44 PM EST) Blood Culture No growth at 5 days KIRA 07/27/2018 12:02 AM EST [facility] Blood Right upper arm structure / Unknown Venipuncture / Unknown 07/21/2018 11:44 PM EST 07/21/2018 11:59 PM EST Rashard Moody PA-C MICROBIOLOGY - GEN ERAL ORDERABLES Final Result [facility]
[address] [place] [address], * (ABNORMAL) Procalcitonin (07/21/2018 11:37 PM EST) Procalcitonin 0.59(H) <=0.25 ng/mL 07/22/2018 1:05 AM EST [facility] Blood Venipuncture / Unknown 07/21/2018 11:37 PM EST 07/21/2018 11:51 PM EST Narrative [facility] - 07/22/2018 1:05 AM EST As a Marker for Sepsis (Non-Neonates): 1. [...] concentrations < 2 ng/mL are obtained. us Rashard Gianluca Meccariello PA-C LAB BLOOD ORDERABL ES Final Result [facility]
[address] [place] [address], * Lactic Acid, Plasma (07/21/2018 11:37 PM EST) Lactate 1.0 0.5 - 2.0 mmol/L 07/22/2018 12:07 AM [facility] Blood Venipuncture / Unknown 07/21/2018 11:37 PM EST 07/21/2018 11:51 PM EST Rashard Montes De Ocacariello PA-C LAB BLOOD ORDERABL ES Final Result Performing Organization Address City/[facility]/ZIP Co de Phone Number [facility]
[address] [phone], * (ABNORMAL) Basic Metabolic Panel (07/21/2018 11:37 PM EST) Glucose 103(H) 74 - 98 mg/dL 07/22/2018 12:12 AM [facility] BUN 47(H) 7 - 20 mg/dL 07/22/2018 12:12 AM [facility] Creatinine 3.50(H) 0.60 - 1.30 mg/dL 07/22/2018 12:12 AM [facility] Sodium 137 137 - 145 mmol/L 07/22/2018 12:12 AM [facility] Potassium 5.6(HH) 3.5 - 5.1 mmol/L 07/22/2018 12:12 AM [facility] Chloride 114(H) 98 - 107 mmol/L 07/22/2018 12:12 AM [facility] CO2 12.0(L) 26.0 - 30.0 mmol/L 07/22/2018 12:12 AM [facility] Calcium 8.8 8.4 - 10.2 mg/dL 07/22/2018 12:12 AM [facility] eGFR Non Amer 16(L) >60 mL/min/1.7 3 07/22/2018 12:12 AM EST [facility] BUN/Creatinine Ratio 13.4 7.1 - 23.5 07/22/2018 12:12 AM EST [facility] Anion Gap 16.6 10.0 - 20.0 mmol/L 07/22/2018 12:12 AM EST [facility] Blood Venipuncture / Unknown 07/21/2018 11:37 PM EST 07/21/2018 11:51 PM EST Narrative [facility] - 07/22/2018 12:12 AM EST GFR Normal >60 Chronic Kidney Disease <60 Kidney Failure <15 Jarred Bauman MD LAB BLOOD ORDERABLES Final Resul t Performing Organization Address City/[facility]/ZIP Co de Phone Number [facility]
[address] [place] [address], * POC Glucose Once (07/21/2018 11:23 PM EST) Glucose 100 70 - 130 mg/dL 07/21/2018 11:30 PM EST [facility] Comment:Serial Number: [id number] Blood 07/21/2018 11:2 3 PM EST 07/21/2018 11:30 PM EST Phill Gama DO POINT OF CARE TEST ORDERABLES Final Result [facility]
[address] [place] [address], * POC Glucose Once (07/21/2018 9:46 PM EST) Glucose 90 70 - 130 mg/dL 07/21/2018 9:50 PM EST [facility] Comment:Serial Number: [id number] Blood 07/21/2018 9:46 PM EST 07/21/2018 9:50 PM EST us Phillabi Gama DO POINT OF CARE TEST ORDERABLES Final Result [facility]
[address] [place] [address], [place] [phone] * CT Abdomen Pelvis Without Contrast (07/21/2018 7:18 PM EST) Anatomical Region Laterality Modality Abdomen, Pelvis N/A Computed Tomogra phy 07/21/2018 8:30 PM EST Impressions 07/21/2018 8:30 PM EST There is minimal dilation of the left ureter and intrarenal collecting system with extensive inflammatory stranding, most likely related to pyelonephritis. Authenticated by Bradley Jiménez MD on 07/21/2018 08:30:27 PM Narrative 07/21/2018 8:30 PM EST FINAL REPORT CLINICAL HISTORY: . Leukocytosis, UTI, Abd Pain, Renal Insufficiency FINDINGS: There is cholelithiasis. ??There is no cholecystitis. ??The liver, spleen and adrenals are normal. ??There is mild dilation of the left ureter and left renal collecting system with extensive periureteral inflammatory fat stranding. ??There is no renal or ureteral calculi. ??The right kidney is normal. ??The ovaries are normal. Procedure Note Bradley Jiménez MD - 07/21/2018 FINAL REPORT CLINICAL HISTORY: . Leukocytosis, UTI, Abd Pain, Renal Insufficiency FINDINGS: There is cholelithiasis. There is no cholecystitis. The liver, spleen and adrenals are normal. There is mild dilation of the left ureter and left renal collecting system with extensive periureteral inflammatory fat stranding. There is no renal or ureteral calculi. The right kidney is normal. The ovaries are normal. IMPRESSION: There is minimal dilation of the left ureter and intrarenal collecting system with extensive inflammatory stranding, most likely related to pyelonephritis. Authenticated by Bradley Jiménez MD on 07/21/2018 08:30:27 PM Rashard Moody PA-C IMG CT ORDERABLES Final Result * (ABNORMAL) Hemoglobin A1c (07/21/2018 5:50 PM EST) Pathologist [facility] Hemoglobin A1C 7.8(H) 3 - 6 % 07/24/2018 1:56 AM EST [facility] Blood Venipuncture / Unknown 07/21/2018 5:50 PM EST 07/21/2018 5:57 PM EST Narrative [facility] - 07/24/2018 1:56 AM EST Expected HgbA1C results: ? 3% to 6% HgbA1C HgbA1C ? Estimated Average Glucose 5% ?97 mg/dl 6% ? 126 mg/dl 7% ? 154 mg/dl 8% ? 183 mg/dl 9% ? 212 mg/dl >10% ? >240 mg/dl Jarred Bauman MD LAB BLOOD ORDERABLES Final Resul t [facility]
[address] [phone], * (ABNORMAL) Urine Culture - Urine, Urine, Clean Catch (07/21/2018 5:50 PM EST) Pathologist [facility] Urine Culture >100,000 CFU/mL Escherichia coli(A) KIRA 07/24/2018 7:48 AM EST [facility] Urine Urine specimen collection, clean catch / Unknown Collection / Unknown 07/21/2018 5:50 PM EST 07/21/2018 5:57 PM EST Narrative Organism Antibiotic Method Susceptibility Escherichia coli Amikacin KIRA <=16 ug/ml: Susceptible Escherichia coli Ampicillin KIRA >16 ug/ml: Resistant Escherichia coli Ampicillin + Sulbactam KIRA >16/8 ug/ml: Resistant Escherichia coli Aztreonam KIRA <=4 ug/ml: Susceptible Escherichia coli Cefazolin KIRA >16 ug/ml: Resistant Escherichia coli Cefepime KIRA <=4 ug/ml: Susceptible Escherichia coli Cefotaxime KIRA <=2 ug/ml: Susceptible Escherichia coli Cefoxitin KIRA <=8 ug/ml: Susceptible Escherichia coli Ceftazidime KIRA <=1 ug/ml: Susceptible Escherichia coli Ceftriaxone KIRA <=8 ug/ml: Susceptible Escherichia coli Cefuroxime sodium KIRA <=4 ug/ml: Susceptible Escherichia coli Ciprofloxacin KIRA <=1 ug/ml: Susceptible Escherichia coli Doripenem KIRA <=0.5 ug/ml: Susceptible Escherichia coli Ertapenem KIRA <=1 ug/ml: Susceptible Escherichia coli Gentamicin KIRA <=4 ug/ml: Susceptible Escherichia coli Levofloxacin KIRA <=2 ug/ml: Susceptible Escherichia coli Nitrofurantoin KIRA <=32 ug/ml: Susceptible Escherichia coli Piperacillin + Tazobactam KIRA <=16 ug/ml: Susceptible Escherichia coli Tetracycline KIRA <=4 ug/ml: Susceptible Escherichia coli Tigecycline KIRA <=1 ug/ml: Susceptible Escherichia coli Tobramycin KIRA <=4 ug/ml: Susceptible Escherichia coli Trimethoprim + Sulfamethoxazole KIRA <=2/38 ug/ml: Susceptible Jarred Bauman MD MICROBIOLOGY - GENERAL ORDERABLE S Final Result [facility]
[address] [phone], * (ABNORMAL) Urinalysis, Microscopic Only - Urine, Clean Catch (07/21/2018 5:50 PM EST) RBC, UA 3-5(A) None Seen /HPF 07/21/2018 6:20 PM EST [facility] WBC, UA 31-50(A) None Seen /HPF 07/21/2018 6:20 PM [facility] Bacteria, UA 1+(A) None Seen /HPF 07/21/2018 6:20 PM [facility] Squamous Epithelial Cells, UA 0-2 None Seen, 0-2 /HPF 07/21/2018 6:20 PM EST [facility] Hyaline Casts, UA None Seen None Seen /LPF 07/21/2018 6:20 PM [facility] WBC Clumps, UA Small/1+ None Seen /HPF 07/21/2018 6:20 PM [facility] Methodology Manual Light Microscopy 07/21/2018 6:20 PM [facility] Urine Urine specimen collection, clean catch / Unknown Collection / Unknown 07/21/2018 5:50 PM EST 07/21/2018 5:57 PM EST Rashard Moody PA-C URINE ORDERABLES F inal Result [facility]
[address] [id number], * (ABNORMAL) CBC Auto Differential (07/21/2018 5:50 PM EST) WBC 16.02(H) 4.80 - 10.80 10*3/mm3 07/21/2018 6:05 PM [facility] RBC 3.94(L) 4.20 - 5.40 10*6/mm3 07/21/2018 6:05 PM [facility] Hemoglobin 11.5(L) 12.0 - 16.0 g/dL 07/21/2018 6:05 PM [facility] Hematocrit 35.6(L) 37.0 - 47.0 % 07/21/2018 6:05 PM [facility] MCV 90.4 81.0 - 99.0 fL 07/21/2018 6:05 PM [facility] MCH 29.2 27.0 - 31.0 pg 07/21/2018 6:05 PM [facility] MCHC 32.3 30.0 - 37.0 g/dL 07/21/2018 6:05 PM [facility] RDW 12.5 11.5 - 14.5 % 07/21/2018 6:05 PM [facility] RDW-SD 41.1 37.0 - 54.0 fl 07/21/2018 6:05 PM [facility] MPV 13.2(H) 6.0 - 12.0 fL 07/21/2018 6:05 PM [facility] Platelets 243 130 - 400 10*3/mm3 07/21/2018 6:05 PM [facility] Neutrophil % 82.0(H) 37.0 - 80.0 % 07/21/2018 6:05 PM [facility] Lymphocyte % 11.2 10.0 - 50.0 % 07/21/2018 6:05 PM [facility] Monocyte % 4.7 0.0 - 12.0 % 07/21/2018 6:05 PM [facility] Eosinophil % 1.5 0.0 - 7.0 % 07/21/2018 6:05 PM [facility] Basophil % 0.2 0.0 - 2.5 % 07/21/2018 6:05 PM [facility] Immature Grans % 0.4 0.0 - 0.6 % 07/21/2018 6:05 PM [facility] Neutrophils, Absolute 13.12(H) 2.00 - 6.90 10*3/mm3 07/21/2018 6:05 PM [facility] Lymphocytes, Absolute 1.79 0.60 - 3.40 10*3/mm3 07/21/2018 6:05 PM [facility] Monocytes, Absolute 0.76 0.00 - 0.90 10*3/mm3 07/21/2018 6:05 PM [facility] Eosinophils, Absolute 0.24 0.00 - 0.70 10*3/mm3 07/21/2018 6:05 PM [facility] Basophils, Absolute 0.04 0.00 - 0.20 10*3/mm3 07/21/2018 6:05 PM [facility] Immature Grans, Absolute 0.07(H) 0.00 - 0.06 10*3/mm3 07/21/2018 6:05 PM [facility] nRBC 0.0 0.0 - 0.0 /100 WBC 07/21/2018 6:05 PM [facility] Blood Venipuncture / Unknown 07/21/2018 5:50 PM EST 07/21/2018 5:57 PM EST [facility] LAB BLOOD ORDERABL ES Final Result Performing Organization Address City/[facility]/ZIP Co de Phone Number [facility]
[address] [place] [address], [place] [phone] * , Urine - Urine, Clean Catch (07/21/2018 5:50 PM EST) HCG, Urine QL Negative Negative 07/21/2018 6:06 PM [facility] Urine Urine specimen collection, clean catch / Unknown Collection / Unknown 07/21/2018 5:50 PM EST 07/21/2018 5:57 PM EST [facility] URINE ORDERABLES F inal Result Performing Organization Address City/[facility]/ZIP Co de Phone Number [facility]
[address] [place] [address], [place] [phone] * (ABNORMAL) Urinalysis With Microscopic If Indicated (No Culture) - Urine, Clean Catch (07/21/2018 5:50 PM EST) Color, UA Straw Yellow, Straw 07/21/2018 6:10 PM [facility] Appearance, UA Slightly Cloudy(A) Clear 07/21/2018 6:10 PM [facility] pH, UA 5.5 5.0 - 8.0 07/21/2018 6:10 PM [facility] Specific [place], UA 1.025 1.005 - 1.030 07/21/2018 6:10 PM EST [facility] Glucose, UA Negative Negative 07/21/2018 6:10 PM EST [facility] Ketones, UA Negative Negative 07/21/2018 6:10 PM EST [facility] Bilirubin, UA Negative Negative 07/21/2018 6:10 PM EST [facility] Blood, UA Trace(A) Negative 07/21/2018 6:10 PM EST [facility] Protein, UA >=300 mg/dL (3+)(A) Negative 07/21/2018 6:10 PM EST [facility] Leuk Esterase, UA Negative Negative 07/21/2018 6:10 PM EST [facility] Nitrite, UA Negative Negative 07/21/2018 6:10 PM [facility] Urobilinogen, UA 0.2 E.U./dL 0.2 - 1.0 E.U./dL 07/21/2018 6:10 PM EST [facility] Urine Urine specimen collection, clean catch / Unknown Collection / Unknown 07/21/2018 5:50 PM EST 07/21/2018 5:57 PM EST Rashard Moody PA-C URINE ORDERABLES F inal Result [facility]
[address] [place] [address], * (ABNORMAL) Comprehensive Metabolic Panel (07/21/2018 5:50 PM EST) Glucose 105(H) 74 - 98 mg/dL 07/21/2018 6:20 PM EST [facility] BUN 52(H) 7 - 20 mg/dL 07/21/2018 6:20 PM [facility] Creatinine 3.40(H) 0.60 - 1.30 mg/dL 07/21/2018 6:20 PM EST [facility] Sodium 139 137 - 145 mmol/L 07/21/2018 6:20 PM EST [facility] Potassium 6.2(HH) 3.5 - 5.1 mmol/L 07/21/2018 6:20 PM [facility] Chloride 113(H) 98 - 107 mmol/L 07/21/2018 6:20 PM [facility] CO2 16.0(L) 26.0 - 30.0 mmol/L 07/21/2018 6:20 PM [facility] Calcium 9.5 8.4 - 10.2 mg/dL 07/21/2018 6:20 PM [facility] Total Protein 7.8 6.3 - 8.2 g/dL 07/21/2018 6:20 PM [facility] Albumin 4.60 3.50 - 5.00 g/dL 07/21/2018 6:20 PM [facility] ALT (SGPT) 26 13 - 69 U/L 07/21/2018 6:20 PM [facility] AST (SGOT) 16 15 - 46 U/L 07/21/2018 6:20 PM [facility] Alkaline Phosphatase 71 38 - 126 U/L 07/21/2018 6:20 PM [facility] Total Bilirubin 0.3 0.2 - 1.3 mg/dL 07/21/2018 6:20 PM [facility] eGFR Non Amer 16(L) >60 mL/min/1.7 3 07/21/2018 6:20 PM [facility] Globulin 3.2 gm/dL 07/21/2018 6:20 PM [facility] A/G Ratio 1.4 1.0 - 2.0 g/dL 07/21/2018 6:20 PM [facility] BUN/Creatinine Ratio 15.3 7.1 - 23.5 07/21/2018 6:20 PM [facility] Anion Gap 16.2 10.0 - 20.0 mmol/L 07/21/2018 6:20 PM [facility] Blood Venipuncture / Unknown 07/21/2018 5:50 PM EST 07/21/2018 5:57 PM [facility] - 07/21/2018 6:20 PM EST GFR Normal >60 Chronic Kidney Disease <60 Kidney Failure <15 Rashard Moody PA-C LAB BLOOD ORDERABL ES Final Result [facility]
[address] [place] [address], * ME APPLICATION SHORT ARM SPLINT FOREARM-HAND STATIC (07/21/2018 4:55 PM EST) Narrative Christopher Aggarwal MD - 07/21/2018 4:55 PM EST Rashard Moody PA-C ? 07/22/2018 12:16 AM Splint - Cast - Strapping Date/Time: 07/22/2018 12:13 AM Performed by: Rashard Moody PA-C Authorized by: Phill Gama, DO Consent: ??Consent obtained: ??Verbal ??Consent given by: ??Patient Pre-procedure details: ??Sensation: ??Normal Procedure details: ??Laterality: ??Right ??Location: ??Hand ??Hand: ??R hand ??Splint type: ??Ulnar gutter ??Supplies: ??Cotton padding and Ortho-Glass Post-procedure details: ??Pain: ??Improved ??Sensation: ??Normal ??Patient tolerance of procedure: ??Tolerated well, no immediate complications Phill Gama DO PROCEDURE/MINOR SURGICAL ORDER BERTIN Final Result * SCANNED - TELEMETRY (07/21/2018) Anatomical Region Laterality Modality Other [facility] Onbase ECG ORDERABLES Final Result documented in this encounter Visit Diagnoses Diagnosis Pyelonephritis, acute- Primary Acute pyelonephritis without lesion of renal medullary necrosis Pyelonephritis, acute Acute pyelonephritis without lesion of renal medullary necrosis Acute renal failure superimposed on chronic kidney disease, unspecified CKD stage, unspecified acute renal failure type Type 1 diabetes mellitus with stage 3 chronic kidney disease Hyperlipidemia Other and unspecified hyperlipidemia Acute renal failure Acute kidney failure, unspecified Acute hyperkalemia Hyperpotassemia Essential hypertension Unspecified essential hypertension Chronic kidney disease, stage IV (severe) Chronic kidney disease, Stage IV (severe) documented in this encounter Admitting Diagnoses Diagnosis Pyelonephritis, acute Acute pyelonephritis without lesion of renal medullary necrosis documented in this encounter Administered Medications Inactive Administered Medications - up to 3 most recent administrations Medication Order MAR Action Action Date Dose Rate Site acetaminophen (TYLENOL) tablet 650 mg 650 mg, Oral, Every 4 Hours PRN, Mild Pain, Starting on Tue07/21/18 at 2204, Do not exceed 4 grams of acetaminophen in a 24 hr period. If given for pain, use the following pain scale: Mild Pain = Pain Score of 1-3, CPOT 1-2 Moderate Pain = Pain Score of 4-6, CPOT 3-4 Severe Pain = Pain Score of 7-10, CPOT 5-8 atorvastatin (LIPITOR) tablet 40 mg 40 mg, Oral, Daily, First dose on Tue07/22/18 at 0900, Avoid grapefruit juice. Given 07/22/2018 8:40 AM EST 40 mg calcium gluconate injection 1 g 1 g, Intravenous, Once, On Tue07/21/18 at 1824, For 1 dose Given 07/21/2018 6:48 PM EST 1 g cefTRIAXone (ROCEPHIN) IVPB 1 g/50ml dextrose (premix) 1 g, Intravenous, at 100 mL/hr, Administer over 30 Minutes, Once, On Tue07/21/18 at 1830, For 1 dose, Caution: Look alike/sound alike drug alert, Indications: Urinary Tract InfectionIndications:Urinary Tract Infection New Bag 07/21/2018 7:35 PM EST 1 g 100 mL/hr cefTRIAXone (ROCEPHIN) IVPB 1 g/50ml dextrose (premix) 1 g, Intravenous, at 100 mL/hr, Administer over 30 Minutes, Every 24 Hours, First dose on 07/22/18 at 2000, For 4 days, Caution: Look alike/sound alike drug alert, Indications: Urinary Tract InfectionIndications:Urinary Tract Infection gabapentin (NEURONTIN) capsule 300 mg 300 mg, Oral, Every 12 Hours Scheduled, First dose on Tue07/21/18 at 2212, {WILLIS} Given 07/22/2018 8:40 AM EST 300 mg Given 07/21/2018 10:56 PM EST 300 mg heparin (porcine) 5000 UNIT/ML injection 5,000 Units 5,000 Units, Subcutaneous, Every 12 Hours Scheduled, First dose on Tue07/21/18 at 2208, Indications: Prophylaxis of Venous ThromboembolismIndications:Pr ophylaxis of Venous Thromboembolism Given 07/22/2018 9:11 AM EST 5,000 Units Right Lower Abdomen Given 07/21/2018 10:56 PM EST 5,000 Units Left Lower Abdomen lactobacillus acidophilus (RISAQUAD) capsule 1 capsule 1 capsule, Oral, 2 Times Daily, First dose on Tue07/21/18 at 2208 Given 07/22/2018 9:10 AM EST 1 capsule Given 07/21/2018 10:56 PM EST 1 capsule Morphine sulfate (PF) injection 4 mg 4 mg, Intravenous, Once, On Tue07/21/18 at 1942, For 1 dose, {WILLIS} Caution: Look alike/sound alike drug alert If given for pain, use the following pain scale: Mild Pain = Pain Score of 1-3, CPOT 1-2 Moderate Pain = Pain Score of 4-6, CPOT 3-4 Severe Pain = Pain Score of 7-10, CPOT 5-8 Given 07/21/2018 8:12 PM EST 4 mg ondansetron (ZOFRAN) injection 4 mg 4 mg, Intravenous, Once, On Tue07/21/18 at 1656, For 1 dose Given 07/21/2018 6:25 PM EST 4 mg ondansetron (ZOFRAN) injection 4 mg 4 mg, Intravenous, Every 6 Hours PRN, Nausea, Vomiting, Starting on Tue07/21/18 at 2204, If BOTH ondansetron (ZOFRAN) and promethazine (PHENERGAN) are ordered use ondansetron first and THEN promethazine IF ondansetron is ineffective. sodium bicarbonate tablet 1,300 mg 1,300 mg, Oral, 2 Times Daily, First dose on Tue07/21/18 at 2212 Given 07/22/2018 9:10 AM EST 1,300 mg Given 07/21/2018 10:56 PM EST 1,300 mg sodium bicarbonate tablet 650 mg 650 mg, Oral, 2 Times Daily, First dose on Tue07/22/18 at 2100 sodium chloride 0.9 % bolus 1,000 mL 1,000 mL, Intravenous, at 2,000 mL/hr, Administer over 0.5 Hours, Once, On Tue07/21/18 at 1656, For 1 dose Restarted 07/21/2018 8:16 PM EST 1,000 mL 2000 mL/hr New Bag 07/21/2018 5:51 PM EST 1,000 mL 2000 mL/hr sodium chloride 0.9 % bolus 1,000 mL 1,000 mL, Intravenous, at 2,000 mL/hr, Administer over 0.5 Hours, Once, On Tue07/21/18 at 2317, For 1 dose New Bag 07/21/2018 11:57 PM EST 1,000 mL 2000 mL/hr sodium chloride 0.9 % flush 10 mL 10 mL, Intravenous, As Needed, Line Care, Starting on Tue07/21/18 at 1653 sodium chloride 0.9 % flush 3 mL 3 mL, Intravenous, Every 12 Hours Scheduled, First dose on Tue07/21/18 at 2208 Given 07/22/2018 8:45 AM EST 3 mL sodium chloride 0.9 % flush 3-10 mL 3-10 mL, Intravenous, As Needed, Line Care, Starting on Tue07/21/18 at 2204 Sodium chloride 0.9 % infusion 100 mL/hr, Intravenous, Continuous, Starting on Tue07/21/18 at 2208 New Bag 07/22/2018 2:27 PM EST 100 mL/hr 100 mL/hr Currently Infusing 07/22/2018 6:53 AM EST 100 mL/hr 100 m L/hr Currently Infusing 07/22/2018 3:16 AM EST 100 mL/hr 100 m L/hr sodium polystyrene (KAYEXALATE) 15 GM/60ML suspension 30 g 30 g, Oral, Once, On Tue07/21/18 at 2047, For 1 dose, The FDA recommends the dosing of sodium polystyrene sulfonate from other orally administered medicines by at least 3 hours. Given 07/21/2018 9:34 PM EST 30 g documented in this encounter Active and Recently Administered Medications Times are shown in EST. Scheduled Medication Order 07/20/2018 07/21/2018 07/22/2018 atorvastatin (LIPITOR) tablet 40 mg 40 mg, Oral, Daily, First dose on Tue07/22/18 at 0900, Avoid grapefruit juice. 0840 (Given - Provid er: Maneul Torres RN) calcium gluconate injection 1 g (COMPLETED) 1 g, Intravenous, Once, On Tue07/21/18 at 1824, For 1 dose 1848 (Given - Provider: Erica Campbell, RN) cefTRIAXone (ROCEPHIN) IVPB 1 g/50ml dextrose (premix) (COMPLETED) 1 g, Intravenous, at 100 mL/hr, Administer over 30 Minutes, Once, On Tue07/21/18 at 1830, For 1 dose, Caution: Look alike/sound alike drug alert, Indications: Urinary Tract Infection 1934 (New Bag - Provider: Erica Campbell, RN)2016 (Stopped - Provider: Silvia Mcmahan RN) cefTRIAXone (ROCEPHIN) IVPB 1 g/50ml dextrose (premix) 1 g, Intravenous, at 100 mL/hr, Administer over 30 Minutes, Every 24 Hours, First dose on Tue07/22/18 at 2000, For 4 days, Caution: Look alike/sound alike drug alert, Indications: Urinary Tract Infection 1999 (Due) gabapentin (NEURONTIN) capsule 300 mg 300 mg, Oral, Every 12 Hours Scheduled, First dose on Tue07/21/18 at 2212, {WILLIS} 2256 (Given - Provider: Silvia Mcmahan RN) 0840 (Given - Provider: Manuel Torres, RN) heparin (porcine) 5000 UNIT/ML injection 5,000 Units 5,000 Units, Subcutaneous, Every 12 Hours Scheduled, First dose on Tue07/21/18 at 2208, Indications: Prophylaxis of Venous Thromboembolism 225 (Given - Provider: Silvia Mcmahan RN) 0911 (Given - Provider: Manuel Torres, RN) lactobacillus acidophilus (RISAQUAD) capsule 1 capsule 1 capsule, Oral, 2 Times Daily, First dose on Tue07/21/18 at 2208 2256 (Given - Provider: Silvia Mcmahan RN) 0910 (Given - Provider: Manuel Torres, RN) Morphine sulfate (PF) injection 4 mg (COMPLETED) 4 mg, Intravenous, Once, On Tue07/21/18 at 1942, For 1 dose, {WILLIS} Caution: Look alike/sound alike drug alert If given for pain, use the following pain scale: Mild Pain = Pain Score of 1-3, CPOT 1-2 Moderate Pain = Pain Score of 4-6, CPOT 3-4 Severe Pain = Pain Score of 7-10, CPOT 5-8 2011 (Given - Provider: Silvia Mcmahan RN) ondansetron (ZOFRAN) injection 4 mg (COMPLETED) 4 mg, Intravenous, Once, On Tue07/21/18 at 1656, For 1 dose 1825 (Given - Provider: Erica Campbell, HERNÁN) sodium bicarbonate tablet 1,300 mg 1,300 mg, Oral, 2 Times Daily, First dose on Tue07/21/18 at 2212 2256 (Given - Provider: Silvia Mcmahan RN) 0910 (Given - Provider: Manuel Torres, HERNÁN) sodium bicarbonate tablet 650 mg 650 mg, Oral, 2 Times Daily, First dose on Tue07/22/18 at 2100 sodium chloride 0.9 % bolus 1,000 mL (COMPLETED) 1,000 mL, Intravenous, at 2,000 mL/hr, Administer over 0.5 Hours, Once, On Tue07/21/18 at 1656, For 1 dose 1751 (New Bag - Provider: rEica Campbell, RN)2016 (Restarted - Provider: Silvia Mcmahan RN)2356 (Stopped - Provider: Silvia Mcmahan RN) sodium chloride 0.9 % bolus 1,000 mL (COMPLETED) 1,000 mL, Intravenous, at 2,000 mL/hr, Administer over 0.5 Hours, Once, On Tue07/21/18 at 2317, For 1 dose 2357 (New Bag - Provider: Silvia Mcmahan RN) 0115 (Stopped - Provider: Bing Tomlin, HERNÁN) sodium chloride 0.9 % flush 3 mL 3 mL, Intravenous, Every 12 Hours Scheduled, First dose on Tue07/21/18 at 2208 0049 (Not Given - Provider: Bing Tomlin, HERNÁN - Reason: Other)0845 (Given - Provider: Manuel Torres, HERNÁN) sodium polystyrene (KAYEXALATE) 15 GM/60ML suspension 30 g (COMPLETED) 30 g, Oral, Once, On Tue07/21/18 at 2047, For 1 dose, The FDA recommends the dosing of sodium polystyrene sulfonate from other orally administered medicines by at least 3 hours. 2134 (Given - Provider: Silvia Mcmahan, HERNÁN) Continuous Medication Order 07/20/2018 07/21/2018 07/22/2018 Sodium chloride 0.9 % infusion 100 mL/hr, Intravenous, Continuous, Starting on Tue07/21/18 at 2208 0003 (Hold - Provide r: Silvia Mcmahan RN - Reason: Other - Comment: Start after 2nd bolus per provider)0114 (New Bag - Provider: Bing Tomlin RN)0316 (Currently Infusing - Provider: Bing Tomlin RN)0653 (Currently Infusing - Provider: Bing Tomlin RN)1427 (New Bag - Provider: Fabiola Wolf RN) PRN Medication Order 07/20/2018 07/21/2018 07/22/2018 acetaminophen (TYLENOL) tablet 650 mg 650 mg, Oral, Every 4 Hours PRN, Mild Pain, Starting on Tue07/21/18 at 2204, Do not exceed 4 grams of acetaminophen in a 24 hr period. If given for pain, use the following pain scale: Mild Pain = Pain Score of 1-3, CPOT 1-2 Moderate Pain = Pain Score of 4-6, CPOT 3-4 Severe Pain = Pain Score of 7-10, CPOT 5-8 ondansetron (ZOFRAN) injection 4 mg 4 mg, Intravenous, Every 6 Hours PRN, Nausea, Vomiting, Starting on Tue07/21/18 at 2204, If BOTH ondansetron (ZOFRAN) and promethazine (PHENERGAN) are ordered use ondansetron first and THEN promethazine IF ondansetron is ineffective. sodium chloride 0.9 % flush 10 mL(Linked Group 1) 10 mL, Intravenous, As Needed, Line Care, Starting on Tue07/21/18 at 1653 sodium chloride 0.9 % flush 3-10 mL 3-10 mL, Intravenous, As Needed, Line Care, Starting on Tue07/21/18 at 2204 Linked Groups Order Group 1: Insert peripheral IV (CANCELED) Once, On Tue07/21/18 at 1654, For 1 occurrence And sodium chloride 0.9 % flush 10 mLJump to med 10 mL, Intravenous, As Needed, Line Care, Starting on Tue07/21/18 at 1653 documented in this encounter
--- OUTSIDE RECORDS SUMMARY | 2024-05-30 08:37 | XMS_ITS | Encounter Summary ---
[facility] Address [address] [place] [id number] Care Team Providers Care Horse Farm Manager Name Role Phone Unavailable Primary Care Provider Unavailabl e Reason for Visit * Reason Comments Tingling Encounter Details Date Type Department Care Team (Late st Contact Info) Description 05/08/2018 6:16 PM EDT - 05/08/2018 6:32 PM EDT Emergency [facility] [address] [place] [address] Mickey Cerda MD [address] [place] [address] Chronic painful diabetic neuropathy (Primary Dx) Discharge Disposition: Home or Self [...] Sign Reading Time Taken Comments Blood Pressure 136/79 05/08/2018 5:59 PM EDT Pulse 84 05/08/2018 5:59 PM EDT Temperature 36.8 ??C (98.3 ??F) 05/08/2018 5:59 PM ED T Respiratory Rate 16 05/08/2018 5:59 PM EDT Oxygen Saturation 100% 05/08/2018 5:59 PM EDT Inhaled Oxygen Concentration - - Weight 88.5 kg (195 lb) 05/08/2018 5:59 PM EDT Height 165.1 cm (5' 5 ) 05/08/2018 5:59 PM EDT Body Mass Index 32.45 05/08/2018 5:59 PM EDT documented in this encounter Discharge Instructions * Attachments The following attachments cannot be sent through Care Everywhere. * Neuropathic Pain ([place]) documented in this encounter Medications at Time of Discharge atorvastatin (LIPITOR) 40 MG tablet TAKE 1 TABLET EVERY DAY 0 12/23/2015 lisinopril (PRINIVIL,ZESTRIL) 10 MG tablet Takes 20mg daily 0 12/23/2015 ondansetron ODT (ZOFRAN-ODT) 4 MG disintegrating tablet Take 1 tablet by mouth Every 6 (Six) Hours As Needed for Nausea or Vomiting. 20 tablet 03/14/2018 acetaminophen (TYLENOL) 500 MG tablet Take 1 tablet by mouth Every 6 (Six) Hours As Needed for Mild Pain . 20 tablet 05/08/2018 8 amLODIPine (NORVASC) 10 MG tablet Take 10 mg by mouth Daily. 8 aspirin 81 MG chewable tablet Chew [...] DOSE OF 150 UNITS 0 12/23/2015 9 ibuprofen (ADVIL,MOTRIN) 600 MG tablet Take 1 tablet by mouth Every 6 (Six) Hours As Needed for Mild Pain . 20 tablet 05/08/2018 8 insulin lispro (humaLOG) 100 UNIT/ML injection Inject [...] ED Notes * Mickey Cerda MD - 05/08/2018 6:26 PM EDT Subjective History of Present Illness 27-year-old female history of insulin-dependent diabetes who is bringing her son in for an unrelated injury checked as well for further management of her neuropathy. States that she has had years of burning and tingling in both feet despite prescriptions for gabapentin and Cymbalta. She states thatshe has not follow-up with her primary care provider for another couple of months so decided to be seen in the ER since she was here already. Denies any changes in this the last few days. Denies any specific injuries. States that her glucose is usually well-controlled but she did not bring her insulin pump with her today. Review of Systems All other systems reviewed [...] time. She appears well- developed and well-nourished. Cardiovascular: Normal rate, regular rhythm and intact distal pulses. Pulmonary/Chest: Effort normal. No respiratory distress. Musculoskeletal: Normal range of motion. She exhibits no edema, tenderness or deformity. Neurological: She is alert and oriented to person, place, and time. Moves feet and toes w/o difficulty Skin: Skin is warm and dry. Capillary refill takes less than 2 seconds. No rash noted. No erythema.No pallor. Psychiatric: She has a normal mood and affect. Her behavior is normal. Nursing note and vitals reviewed. Procedures ED Course MDM 27-year-old female here with chronic neuropathy in both feet. Afebrile, vital signs stable. Neurovascularly intact. No evidence of any traumatic injuries to the feet. No evidence of any of any infection. I discussed with the patient that for her chronic neuropathy, she needed to follow-up with her primary care provider and that she is already on the appropriate medications to treat this. She needs to adhere to more strict glucose control and call for sooner follow-up if she can. Final diagnoses: Chronic painful diabetic neuropathy (CMS/HCC) Mickey Cerda MD 05/08/18 1829 documented in this encounter Plan of Treatment Not on file documented as of this encounter Visit Diagnoses Diagnosis Chronic painful diabetic neuropathy- Primary documented in this encounter
--- OUTSIDE RECORDS SUMMARY | 2024-05-30 08:37 | XMS_ITS | Encounter Summary ---
Author Organization [facility] Address [address] [place] [id number] Care Team Providers Care Stopping Builder Name Role Phone Unavailable Primary Care Provider Unavailabl e Reason for Visit * Reason Comments Hyperglycemia Encounter Details Date Type Department Care Team (Late st Contact Info) Description 03/30/2018 4:35 PM EDT - 03/30/2018 8:20 PM EDT Emergency [facility] EMERGENCY DEPARTMENT [address] [place] [phone] Dominik Rizo MD [address] [place] [address] Hyperglycemia (Primary Dx); Other specified diabetes mellitus without complication, with long-term current use of insulin Discharge Disposition: Home or Self Care Social [...] Sign Reading Time Taken Comments Blood Pressure 178/99 03/30/2018 8:19 PM EDT Pulse 101 03/30/2018 8:19 PM EDT Temperature 36.9 ??C (98.4 ??F) 03/30/2018 8:19 PM ED T Respiratory Rate 16 03/30/2018 8:19 PM EDT Oxygen Saturation 99% 03/30/2018 8:19 PM EDT Inhaled Oxygen Concentration - - Weight 81.6 kg (180 lb) 03/30/2018 4:37 PM EDT Height 165.1 cm (5' 5 ) 03/30/2018 4:37 PM EDT Body Mass Index 29.95 03/30/2018 4:37 PM EDT documented in this encounter Discharge Instructions * Attachments The following attachments cannot be sent through Care Everywhere. * Blood Glucose Monitoring Adult (Kazakh) documented in this encounter Medications at Time [...] as of this encounter ED Notes * Roxann Gunderson RN - 03/30/2018 7:59 PM EDT ROSEMARY Griffin MD notified Roxann Gunderson RN 03/30/182019 * Roxann Gunderson RN - 03/30/2018 5:18 PM EDT ROSEMARY Sevilla MD notified Roxann Gunderson RN 03/30/188 * Dominik Rizo MD - 03/30/2018 5:09 PM EDT Subjective Patient is a 27-year-old female with diabetes. She presents close her blood sugar is over 600. She states it is over 600 a lot of the times but slowly she is not lightheaded she does not worry about it. States that she was on insulin pump for a long time and then her doctor took her off of it and put her on 6 shots of insulin a day. Then she saw an placement director at [facility] who put her on 2 shots a day. She states she is compliant but it is not working. Patient reports that her insurance did send her supplies for her insulin pump today. She states that her mouth does feel dry and she has been urinating quite a bit. She denies nausea, vomiting, abdominal pain headache or vision changes. Review of Systems All other systems reviewed and are negative. Past 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: Diagnosis Date ??? Allergic ??? Anxiety ??? Arthritis ??? Chronic constipation ??? Depression ??? Diabetes mellitus ([facility]) ??? Excessive thirst ??? H/O mammogram 2014 [...] is moist Chest: Nontender to palpation Cardiovascular: Tachycardic in the 110 range Lungs: Clear to auscultation bilaterally Abdomen: Soft, nontender, nondistended, no peritoneal signs Extremities: No edema, normal appearance Neuro: GCS 15 Psych: Mood and affect are appropriate Procedures ED Course MDM Number of Diagnoses or Management Options Diagnosis management comments: Treated with IV fluids and IV insulin Amount and/or Complexity of Data Reviewed Decide to obtain previous medical records or to obtain history from someone other than the patient:yes Obtain history from someone other than the patient: yes Review and summarize past medical records: yes Final diagnoses: Hyperglycemia Other specified diabetes mellitus without complication, with long-term current use of insulin ([facility]) Dominik Rizo MD 04/07/18 0702 documented in this encounter Plan of Treatment Not on file documented as of this encounter Procedures Procedure Name Priority Date/Time Associated Diagnosis Comments POCT GLUCOSE FINGERSTICK STAT 03/30/2018 7:58 PM EDT POCT GLUCOSE FINGERSTICK STAT 03/30/2018 6:07 PM EDT POCT GLUCOSE FINGERSTICK STAT 03/30/2018 5:18 PM EDT URINALYSIS, MICROSCOPIC ONLY STAT 03/30/2018 5:02 PM EDT URINALYSIS W/ MICROSCOPIC IF INDICATED (NO CULTURE) STAT 03/30/2018 5:02 PM EDT GOLD TOP - SST STAT 03/30/2018 4:54 PM EDT CBC WITH AUTO DIFFERENTIAL STAT 03/30/2018 4:54 PM EDT LAVENDER TOP STAT 03/30/2018 4:54 PM EDT LIGHT BLUE TOP STAT 03/30/2018 4:54 PM EDT RAINBOW DRAW STAT 03/30/2018 4:54 PM EDT CBC AND DIFFERENTIAL STAT 03/30/2018 4:54 PM EDT COMPREHENSIVE METABOLIC PANEL STAT 03/30/2018 4:54 PM EDT documented in this encounter Results * (ABNORMAL) POC Glucose Once (03/30/2018 7:58 PM EDT) Glucose 310(H) 70 - 130 mg/dL 03/31/2018 4:35 AM EDT [facility] Comment:Serial Number: [id number]: [id number] Blood 03/30/2018 7:58 PM EDT 03/31/2018 4:35 AM EDT us Dominik Rizo MD POINT OF CARE TEST ORDERABLES Final Result Performing Organization Address [facility] de Phone Number [facility]
[address] [place] [address], * (ABNORMAL) POC Glucose Once (03/30/2018 6:07 PM EDT) Glucose 534(HH) 70 - 130 mg/dL 03/31/2018 4:31 AM EDT [facility] Comment:Serial Number: [id number]: [id number] Blood 03/30/2018 6:07 PM EDT 03/31/2018 4:30 AM EDT us Dominik Rizo MD POINT OF CARE TEST ORDERABLES Final Result Performing Organization Address [facility] de Phone Number [facility]
[address] [place] [address], [place] [phone] * (ABNORMAL) POC Glucose Once (03/30/2018 5:18 PM EDT) Glucose 570(HH) 70 - 130 mg/dL 03/31/2018 4:30 AM EDT [facility] Comment:Serial Number: [id number]: [id number] Blood 03/30/2018 5:18 PM EDT 03/31/2018 4:30 AM EDT us Dominik Rizo MD POINT OF CARE TEST ORDERABLES Final Result Performing Organization Address City/[facility] Co de Phone Number [facility]
[address] [place] [address], [place] [phone] * (ABNORMAL) Urinalysis, Microscopic Only - Urine, Clean Catch (03/30/2018 5:02 PM EDT) RBC, UA 3-5(A) None Seen /HPF 03/30/2018 5:43 PM EDT [facility] WBC, UA 3-5(A) None Seen /HPF 03/30/2018 5:43 PM EDT [facility] Bacteria, UA 2+(A) None Seen /HPF 03/30/2018 5:43 PM EDT [facility] Squamous Epithelial Cells, UA 7-12(A) None Seen, 0-2 /HPF 03/30/2018 5:43 PM EDT [facility] Hyaline Casts, UA None Seen None Seen /LPF 03/30/2018 5:43 PM EDT [facility] Methodology Manual Light Microscopy 03/30/2018 5:43 PM EDT [facility] Urine Urine specimen collection, clean catch / Unknown Collection / Unknown 03/30/2018 5:02 PM EDT 03/30/2018 5:11 PM EDT us Triage Protocol Emergency MD URINE ORDERABLES Fi nal Result Performing Organization Address [facility]/ZIP Co de Phone Number [facility]
[address] [place] [address], [place] [phone] * (ABNORMAL) Urinalysis With Microscopic If Indicated (No Culture) - Urine, Clean Catch (03/30/2018 5:02 PM EDT) Color, UA Straw Yellow, Straw 03/30/2018 5:40 PM EDT [facility] Appearance, UA Clear Clear 03/30/2018 5:40 PM EDT [facility] pH, UA 6.0 5.0 - 8.0 03/30/2018 5:40 PM EDT [facility] Specific [place], UA 1.020 1.005 - 1.030 03/30/2018 5:40 PM EDT [facility] Glucose, UA >=1000 mg/dL (3+)(A) Negative 03/30/2018 5:40 PM EDT [facility] Ketones, UA Negative Negative 03/30/2018 5:40 PM EDT [facility] Bilirubin, UA Negative Negative 03/30/2018 5:40 PM EDT [facility] Blood, UA Small (1+)(A) Negative 03/30/2018 5:40 PM EDT [facility] Protein, UA >=300 mg/dL (3+)(A) Negative 03/30/2018 5:40 PM EDT [facility] Leuk Esterase, UA Negative Negative 03/30/2018 5:40 PM EDT [facility] Nitrite, UA Negative Negative 03/30/2018 5:40 PM EDT [facility] Urobilinogen, UA 0.2 E.U./dL 0.2 - 1.0 E.U./dL 03/30/2018 5:40 PM EDT [facility] Urine Urine specimen collection, clean catch / Unknown Collection / Unknown 03/30/2018 5:02 PM EDT 03/30/2018 5:11 PM EDT us Triage Protocol Emergency MD URINE ORDERABLES Fi nal Result [facility]
[address] [place] [phone], * (ABNORMAL) CBC Auto Differential (03/30/2018 4:54 PM EDT) WBC 9.73 4.80 - 10.80 10*3/mm3 03/30/2018 5:02 PM EDT [facility] RBC 4.28 4.20 - 5.40 10*6/mm3 03/30/2018 5:02 PM EDT [facility] Hemoglobin 12.4 12.0 - 16.0 g/dL 03/30/2018 5:02 PM EDT [facility] Hematocrit 36.6(L) 37.0 - 47.0 % 03/30/2018 5:02 PM EDT [facility] MCV 85.5 81.0 - 99.0 fL 03/30/2018 5:02 PM EDT [facility] MCH 29.0 27.0 - 31.0 pg 03/30/2018 5:02 PM EDT [facility] MCHC 33.9 30.0 - 37.0 g/dL 03/30/2018 5:02 PM EDT [facility] RDW 11.9 11.5 - 14.5 % 03/30/2018 5:02 PM EDT [facility] RDW-SD 37.1 37.0 - 54.0 fl 03/30/2018 5:[facility] MPV 12.8(H) 6.0 - 12.0 fL 03/30/2018 5:02 PM EDT [facility] Platelets 230 130 - 400 10*3/mm3 03/30/2018 5:02 PM EDT [facility] Neutrophil % 57.9 37.0 - 80.0 % 03/30/2018 5:02 PM EDT [facility] Lymphocyte % 33.4 10.0 - 50.0 % 03/30/2018 5:02 PM EDT [facility] Monocyte % 4.8 0.0 - 12.0 % 03/30/2018 5:02 PM EDT [facility] Eosinophil % 3.0 0.0 - 7.0 % 03/30/2018 5:02 PM EDT [facility] Basophil % 0.5 0.0 - 2.5 % 03/30/2018 5:02 PM EDT [facility] Immature Grans % 0.4 0.0 - 0.6 % 03/30/2018 5:02 PM EDT [facility] Neutrophils, Absolute 5.63 2.00 - 6.90 10*3/mm3 03/30/2018 5:02 PM EDT [facility] Lymphocytes, Absolute 3.25 0.60 - 3.40 10*3/mm3 03/30/2018 5:02 PM EDT [facility] Monocytes, Absolute 0.47 0.00 - 0.90 10*3/mm3 03/30/2018 5:02 PM EDT [facility] Eosinophils, Absolute 0.29 0.00 - 0.70 10*3/mm3 03/30/2018 5:02 PM EDT [facility] Basophils, Absolute 0.05 0.00 - 0.20 10*3/mm3 03/30/2018 5:02 PM EDT [facility] Immature Grans, Absolute 0.04 0.00 - 0.06 10*3/mm3 03/30/2018 5:02 PM EDT [facility] nRBC 0.0 0.0 - 0.0 /100 WBC 03/30/2018 5:02 PM EDT [facility] Blood Venipuncture / Unknown 03/30/2018 4:54 PM EDT 03/30/2018 4:57 PM EDT us Triage Protocol Emergency MD LAB BLOOD ORDERABLE S Final Result [facility]
[address] [place] [address], [place] [phone] * Gold Top - SST (03/30/2018 4:54 PM EDT) Extra Tube Hold for add-ons. 03/30/2018 6:00 PM EDT [facility] Comment:Auto resulted. Blood Venipuncture / Unknown 03/30/2018 4:54 PM EDT 03/30/2018 4:57 PM EDT us Triage Protocol Emergency MD LAB BLOOD ORDER ONL Y Final Result [facility]
[address] [place] [address], [place] [phone] * Lavender Top (03/30/2018 4:54 PM EDT) Extra Tube hold for add-on 03/30/2018 6:00 PM EDT [facility] Comment:Auto resulted Blood Venipuncture / Unknown 03/30/2018 4:54 PM EDT 03/30/2018 4:57 PM EDT Triage Protocol Emergency MD LAB BLOOD ORDER ONL Y Final Result Performing Organization Address City/[facility]/ZIP Co de Phone Number [facility]
[address] [place] [address], [place] [phone] * Light Blue Top (03/30/2018 4:54 PM EDT) Extra Tube hold for add-on 03/30/2018 6:00 PM EDT [facility] Comment:Auto resulted Blood Venipuncture / Unknown 03/30/2018 4:54 PM EDT 03/30/2018 4:57 PM EDT Triage Protocol Emergency MD LAB BLOOD ORDER ONL Y Final Result Performing Organization Address City/[facility]/ZIP Co de Phone Number [facility]
[address] [place] [address], [place] [phone] * (ABNORMAL) Comprehensive Metabolic Panel (03/30/2018 4:54 PM EDT) Glucose 613(HH) 74 - 98 mg/dL 03/30/2018 5:41 PM EDT [facility] Comment:Glucose >180, Hemogl obin A1C recommended. BUN 29(H) 7 - 20 mg/dL 03/30/2018 5:41 PM EDT [facility] Creatinine 1.80(H) 0.60 - 1.30 mg/dL 03/30/2018 5:41 PM EDT [facility] Sodium 129(L) 137 - 145 mmol/L 03/30/2018 5:41 PM EDT [facility] Potassium 5.0 3.5 - 5.1 mmol/L 03/30/2018 5:41 PM EDT [facility] Chloride 96(L) 98 - 107 mmol/L 03/30/2018 5:41 PM EDT [facility] CO2 22.0(L) 26.0 - 30.0 mmol/L 03/30/2018 5:41 PM EDT [facility] Calcium 9.0 8.4 - 10.2 mg/dL 03/30/2018 5:41 PM EDT [facility] Total Protein 7.1 6.3 - 8.2 g/dL 03/30/2018 5:41 PM EDT [facility] Albumin 3.80 3.50 - 5.00 g/dL 03/30/2018 5:41 PM EDT [facility] ALT (SGPT) 23 13 - 69 U/L 03/30/2018 5:41 PM EDT [facility] AST (SGOT) 14(L) 15 - 46 U/L 03/30/2018 5:41 PM EDT [facility] Alkaline Phosphatase 142(H) 38 - 126 U/L 03/30/2018 5:41 PM EDT [facility] Total Bilirubin 0.2 0.2 - 1.3 mg/dL 03/30/2018 5:41 PM EDT [facility] eGFR Non Amer 34(L) >60 mL/min/1.7 3 03/30/2018 5:41 PM EDT [facility] Globulin 3.3 gm/dL 03/30/2018 5:41 PM EDT [facility] A/G Ratio 1.2 1.0 - 2.0 g/dL 03/30/2018 5:41 PM EDT [facility] BUN/Creatinine Ratio 16.1 7.1 - 23.5 03/30/2018 5:41 PM EDT [facility] Anion Gap 16.0 10.0 - 20.0 mmol/L 03/30/2018 5:41 PM T [facility] Blood Venipuncture / Unknown 03/30/2018 4:54 PM EDT 03/30/2018 4:57 PM EDT [facility] - 03/30/2018 5:41 PM EDT GFR Normal >60 Chronic Kidney Disease <60 Kidney Failure <15 us Triage Protocol Emergency MD LAB BLOOD ORDERABLE S Final Result [facility]
[address] [place] [phone], documented in this encounter Visit Diagnoses Diagnosis Hyperglycemia- Primary Other abnormal glucose Other specified diabetes mellitus without complication, with long-term current use of insulin documented in this encounter Administered Medications Inactive Administered Medications - up to 3 most recent administrations Medication Order MAR Action Action Date Dose Rate Site acetaminophen (TYLENOL) tablet 1,000 mg 1,000 mg, Oral, Once, On Emma 03/30/18 at 1820, For 1 dose, Do not exceed 4 grams of acetaminophen in a 24 hr period. If given for pain, use the following pain scale: Mild Pain = Pain Score of 1-3, CPOT 1-2 Moderate Pain = Pain Score of 4-6, CPOT 3-4 Severe Pain = Pain Score of 7-10, CPOT 5-8 Given 03/30/2018 6:24 PM EDT 1,000 mg insulin regular (humuLIN R,novoLIN R) injection 20 Units 20 Units, Subcutaneous, Once, On Emma 03/30/18 at 1656, For 1 dose, {BKC} Caution: Look alike/sound alike drug alert{BKC} Given 03/30/2018 5:21 PM EDT 20 Units Left Upper Abdomen sodium chloride 0.9 % bolus 2,000 mL 2,000 mL, Intravenous, at 2,000 mL/hr, Administer over 1 Hours, Once, On Emma 03/30/18 at 1647, For 1 dose New Bag 03/30/2018 6:26 PM EDT 2,000 mL 2000 mL/hr New Bag 03/30/2018 5:19 PM EDT 1,000 mL 2000 mL/hr sodium chloride 0.9 % flush 10 mL 10 mL, Intravenous, As Needed, Line Care, Starting on Emma 03/30/18 at 1641 documented in this encounter Active and Recently Administered Medications Times are shown in EDT. Scheduled Medication Order 03/28/2018 03/29/2018 03/30/2018 acetaminophen (TYLENOL) tablet 1,000 mg (COMPLETED) 1,000 mg, Oral, Once, On Emma 03/30/18 at 1820, For 1 dose, Do not exceed 4 grams of acetaminophen in a 24 hr period. If given for pain, use the following pain scale: Mild Pain = Pain Score of 1-3, CPOT 1-2 Moderate Pain = Pain Score of 4-6, CPOT 3-4 Severe Pain = Pain Score of 7-10, CPOT 5-8 1824 (Given - Provid er: Roxann Gunderson RN) insulin regular (humuLIN R,novoLIN R) injection 20 Units (COMPLETED) 20 Units, Subcutaneous, Once, On Emma 03/30/18 at 1656, For 1 dose, {BKC} Caution: Look alike/sound alike drug alert{BKC} 1721 (Given - Provid er: Roxann Gunderson RN) sodium chloride 0.9 % bolus 2,000 mL (COMPLETED) 2,000 mL, Intravenous, at 2,000 mL/hr, Administer over 1 Hours, Once, On Emma 03/30/18 at 1647, For 1 dose 1719 (New Bag - Prov ider: Roxann Gunderson RN)182 (New Bag - Provider: Roxann Gunderson RN)2019 (Stopped - Provider: Roxann Gunderson RN) PRN Medication Order 03/28/2018 03/29/2018 03/30/2018 sodium chloride 0.9 % flush 10 mL 10 mL, Intravenous, As Needed, Line Care, Starting on Emma 03/30/18 at 1641 documented in this encounter
--- OUTSIDE RECORDS SUMMARY | 2024-05-30 08:37 | XMS_ITS | Encounter Summary ---
[facility] Address [address] [place] [address] Care Team Providers Care Line Assigner Name Role Phone Unavailable Primary Care Provider Unavailabl e Encounter Details Date Type Department Care Team (Late st Contact Info) Description 06/16/2018 Readmission Management [facility] N[facility] [address] [place] [phone] Gianni Hardwick RN Social History Tobacco Use Types Packs/Day [...] encounter Miscellaneous Notes * Outreach Note - Gianni Hardwick RN - 06/16/2018 4:17 PM EST Medical Week 1 Survey [facility]es [facility] Does the patient have one of the following disease processes/diagnoses(primary or secondary)? Other Is there a successful TCM telephone encounter documented? No Week 1 attempt successful? No Unsuccessful attempts Attempt 1 Gianni Hardwick RN documented in this encounter Plan of Treatment Not on file documented as of this encounter Visit Diagnoses Not on filedocumented in this encounter
--- OUTSIDE RECORDS SUMMARY | 2024-05-30 08:37 | XMS_ITS | Encounter Summary ---
Author Organization [facility] Address [address] [place] [address] Care Team Providers Care Car Escort Name Role Phone Unavailable Primary Care Provider Unavailabl e Reason for Visit * (Emergency) - Closed Specialty Diagnoses / Procedures Referred By Contac t Referred To Contact Radiology Diagnoses Pain in finger of left hand Procedures XR hand 3+ vw left Fabiola Guzman MD [address] [place] [phone] Phone: tel: fax: Referral ID Status Reason Start Date Expiration Date Visits Re quested Visits Authorized [id number] Closed 04/24/2018 04/24/2019 1 1 Encounter Details Date Type Department Care Team (Latest Contact Info) Description 04/24/2018 11:35 AM EDT - 04/24/2018 11:59 PM EDT Hospital Encounter [facility] XRAY [address] [place] [address] Fabiola Guzman MD [address] [place] [id number] Discharge Disposition: Home or Self Care Social [...] Associated Diagnosis Comments XR HAND 3+ VW LEFT STAT 04/24/2018 11 :46 AM EDT Pain in finger of left hand documented in this encounter Results * XR hand 3+ vw left (04/24/2018 11:46 AM EDT) Anatomical Region Laterality Modality Upper Extremities, Hand Left Computed Radiography 04/24/2018 12:0 9 PM EDT Impressions 04/24/2018 12:09 PM EDT No acute fracture. ?? This report was finalized on 04/24/2018 12:09 PM by Brittny Lacey M.D.. Narrative 04/24/2018 12:09 PM EDT PROCEDURE: XR HAND 3+ VW LEFT- History: finger pain left; M79.645-Pain in left finger(s) COMPARISON: None. FINDINGS: ??A 3 view exam demonstrates no acute fracture or dislocation. The joint spaces are preserved. No soft tissue abnormality is seen. ? Procedure Note Brittny Lacey MD - 04/24/2018 PROCEDURE: XR HAND 3+ VW LEFT- History: finger pain left; M79.645-Pain in left finger(s) COMPARISON: None. FINDINGS: A 3 view exam demonstrates no acute fracture or dislocation. The joint spaces are preserved. No soft tissue abnormality is seen. IMPRESSION: No acute fracture. This report was finalized on 04/24/2018 12:09 PM by Brittny Lacey M.D.. us Fabiola Guzman MD IMG DIAGNOSTIC IMAGING ORDER BERTIN Final Result documented in this encounter Visit Diagnoses Not on filedocumented in this encounter
--- OUTSIDE RECORDS SUMMARY | 2024-05-30 08:37 | XMS_ITS | Encounter Summary ---
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 Role Phone Unavailable Primary Care Provider Unavailabl e Encounter Details Date Type Department Care Team (Late st Contact Info) Description 06/18/2018 Readmission Management [facility] N[facility] CALL [facility] [address] [place] [phone] Oliva Sherman, RN Social History Tobacco Use Types Packs/Day [...] encounter Miscellaneous Notes * Outreach Note - Oliva Sherman RN - 06/18/2018 11:34 AM CST Medical Week 1 Survey [facility]es [facility] the patient have one of the following disease processes/diagnoses(primary or secondary)? Other Is there a successful TCM telephone encounter documented? No Week 1 attempt successful? No Unsuccessful attempts Attempt 2 Revoke Phone number issues Oliva Sherman RN documented in this encounter Plan of Treatment Not on file documented as of this encounter Visit Diagnoses Not on filedocumented in this encounter
--- OUTSIDE RECORDS SUMMARY | 2024-05-30 08:38 | XMS_ITS | Encounter Summary ---
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 Phone Jaquan Conley MD Primary Care Provider [phone] Reason for Visit * Reason Comments Hyperglycemia Encounter Details Date Type Department Care Team (Late st Contact Info) Description 04/01/2017 1:27 AM EDT - 04/01/2017 5:13 AM EDT Emergency [facility] [address] [place] [address] [phone] Mickey Cerda MD [address] [place] [address] Hyperglycemia (Primary Dx) Discharge Disposition: Home or Self Care Social History Tobacco Use Types Packs/Day Years Used Date Smoking Tobacco: Some Days Cigarettes 3 10 Alcohol Use Standard Drinks/Week Comments Yes [...] Sign Reading Time Taken Comments Blood Pressure 167/98 04/01/2017 5:12 AM EDT Pulse 100 04/01/2017 5:12 AM EDT Temperature 36.9 ??C (98.4 ??F) 04/01/2017 5:12 AM ED T Respiratory Rate 18 04/01/2017 5:12 AM EDT Oxygen Saturation 98% 04/01/2017 5:12 AM EDT Inhaled Oxygen Concentration - - Weight 83.9 kg (185 lb) 04/01/2017 1:18 AM EDT Height 165.1 cm (5' 5 ) 04/01/2017 1:18 AM EDT Body Mass Index 30.79 04/01/2017 1:18 AM EDT documented in this encounter Discharge Instructions * Attachments The following attachments cannot be sent through Care Everywhere. * HYPERGLYCEMIA, [id number] (HEBREW) documented in this encounter Medications at Time of Discharge atorvastatin (LIPITOR) 40 MG tablet TAKE 1 TABLET EVERY DAY 0 12/23/2015 lisinopril (PRINIVIL,ZESTRI L) 10 MG tablet Takes 20mg daily 0 12/23/2015 citalopram (CeleXA) 10 MG tablet TAKE 2 TABLETS BY MOUTH DAILY 0 12/23/2015 06/14/2018 gabapentin (NEURONTIN) 300 MG capsule BID 0 12/23/2015 02/15/2023 HUMALOG 100 UNIT/ML injection USE DIRECTED PER INSULIN PUMP THERAPY.MAXIMU M DAILY DOSE OF 150 UNITS 0 12/23/2015 07/22/2018 loratadine (CLARITIN) 10 MG tablet Take 10 mg by mouth. 1/2 daily as needed 06/14/2018 magnesium oxide (MAGOX) 400 (241.3 MG) MG tablet tablet TAKE 1 TABLET EVERY DAY 0 12/23/2015 06/14/2018 pramipexole (MIRAPEX) 0.125 MG tablet TAKE 1 TABLET EACH NIGHT AT BEDTIME 0 12/23/2015 06/14/2018 documented as of this encounter ED Notes * Mickey Cerda MD - 04/01/2017 1:45 AM EDT Subjective History of Present Illness 26-year-old female with a history of insulin-dependent diabetes presenting with elevated glucose and nausea and vomiting. Patient states that she left her house around 8:30 AM and has not checked herglucose since because she has been unable to get back into her house. States that she is going through a divorce and her locked her out today. In this setting, she has not had anything to eat today so she has not taken her Humalog that she would normally take. She also missed her nighttime dose of Lantus which she takes 60 units twice daily. Currently, does not feel nauseated nor vomitingand has no other specific symptoms. Glucose in triage was 513. Review of Systems Gastrointestinal: Positive for nausea and vomiting. All other systems reviewed and are negative. Past 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: Diagnosis Date ??? Allergic ??? Anxiety ??? Arthritis ??? Chronic constipation ??? Depression ??? Diabetes mellitus ??? Headache ??? Injury of back ??? Sinusitis ??? Urinary tract infection No Known Allergies Past Surgical History: Procedure Laterality Date ??? SECTION History reviewed. No pertinent family history. Social History Social History ??? Marital status: Spouse name: N/A ??? Number of children: N/A ??? Years of education: N/A Social History Main Topics ??? Smoking status: Current Some Day Smoker Packs/day: 3.00 Years: 10.00 Types: Cigarettes ??? Smokeless tobacco: None ??? Alcohol use Yes ??? Drug use: No ??? Sexual activity: Not Asked Other Topics Concern ??? None Social History Narrative ??? None Objective Physical Exam Constitutional: She is oriented to person, place, and time. She appears well- developed and well-nourished. No distress. HENT: Head: Normocephalic. Mouth/Throat: Oropharynx is clear and moist. Eyes: Conjunctivae are normal. No scleral icterus. Neck: Neck supple. No tracheal deviation present. Cardiovascular: Regular rhythm, normal heart sounds and intact distal pulses. Exam reveals no gallop and no friction rub. No murmur heard. HR 100s Pulmonary/Chest: Effort normal and breath sounds normal. No stridor. No respiratory distress. She has no wheezes. She has no rales. Abdominal: Soft. She exhibits no distension and no mass. There is no tenderness. There is no rebound and no guarding. Musculoskeletal: She exhibits no edema or deformity. Neurological: She is alert and oriented to person, place, and time. Skin: Skin is warm and dry. She is not diaphoretic. No erythema. No pallor. Psychiatric: She has a normal mood and affect. Her behavior is normal. Nursing note and vitals reviewed. Procedures ED Course ED Course MDM 26-year-old female here with nausea, vomiting, hyperglycemia in the setting of missing doses of insulin. Afebrile, vital signs were all for tachycardia and hypertension. Likely that she is hyperglycemic from missing her insulin doses. We'll give her home dose of Lantus now, check labs, give IV fluids, and reassess. Patient deferred any enzymatic at this time. Given her unstable home situation, I discussed at length with her a safe discharge plan if her labs proved to be reassuring. Given that she is unable to back into her house tonight, I anticipate that we will keep her in the emergency department until the morning with frequent glucose checks to ensure that she is safe. 4:26 AM Initial glucose elevated but w/o e/o DKA. Glucose now improved to 236. Pt has safe ride home and place to stay. She will continue to monitor glucose and make correction doses at home as needed. Discussed return to care precautions. Final diagnoses: Hyperglycemia Mickey Cerda MD 04/01/17 0427 documented in this encounter Plan of Treatment Not on file documented as of this encounter Procedures Procedure Name Priority Date/Time Associated Diagnosis Comments POCT GLUCOSE FINGERSTICK STAT 04/01/2017 4:15 AM EDT POCT GLUCOSE FINGERSTICK STAT 04/01/2017 2:55 AM EDT URINALYSIS, MICROSCOPIC ONLY STAT 04/01/2017 2:25 AM EDT URINALYSIS W/ CULTURE IF INDICATED STAT 04/01/2017 2:25 AM EDT HCG, SERUM, QUALITATIVE STAT 04/01/2017 1:26 AM EDT CBC WITH AUTO DIFFERENTIAL STAT 04/01/2017 1:25 AM EDT CBC AND DIFFERENTIAL STAT 04/01/2017 1:25 AM EDT COMPREHENSIVE METABOLIC PANEL STAT 04/01/2017 1:25 AM EDT POCT GLUCOSE FINGERSTICK STAT 04/01/2017 1:20 AM EDT documented in this encounter Results * (ABNORMAL) POC Glucose Fingerstick (04/01/2017 4:15 AM EDT) Glucose 236(H) 70 - 130 mg/dL 04/01/2017 4:20 AM EDT [facility] Comment:Serial Number: [id number] Blood 04/01/2017 4:15 AM EDT 04/01/2017 4:20 AM EDT Mickey Cerda MD POINT OF CARE TEST ORDERABL ES Final Result [facility]
[address] [place] [address], * (ABNORMAL) POC Glucose Fingerstick (04/01/2017 2:55 AM EDT) Glucose 434(H) 70 - 130 mg/dL 04/01/2017 3:00 AM EDT [facility] Comment:Serial Number: [id number] Blood 04/01/2017 2:55 AM EDT 04/01/2017 3:00 AM EDT Mickey Cerda MD POINT OF CARE TEST ORDERABL ES Final Result [facility]
[address] [place] [address], * (ABNORMAL) Urinalysis, Microscopic Only (04/01/2017 2:25 AM EDT) RBC, UA 0-2(A) None Seen /HPF 04/01/2017 2:47 AM EDT [facility] WBC, UA None Seen None Seen /HPF 04/01/2017 2:47 AM EDT [facility] Bacteria, UA Trace(A) None Seen /HPF 04/01/2017 2:47 AM EDT [facility] Squamous Epithelial Cells, UA 3-6(A) None Seen, 0-2 /HPF 04/01/2017 2:47 AM EDT [facility] Hyaline Casts, UA None Seen None Seen /LPF 04/01/2017 2:47 AM EDT [facility] Methodology Manual Light Microscopy 04/01/2017 2:47 AM EDT [facility] Urine Urine specimen collection, clean catch / Unknown Collection / Unknown 04/01/2017 2:25 AM EDT 04/01/2017 2:28 AM EDT Narrative [facility] - 04/01/2017 2:47 AM EDT Rare budding yeast seen us Mickey Cerda MD URINE ORDERABLES Final Resu lt [facility]
[address] [place] [address], [place] [phone] * (ABNORMAL) Urinalysis With / Culture If Indicated (04/01/2017 2:25 AM EDT) Color, UA Yellow Yellow, Straw 04/01/2017 2:40 AM EDT [facility] Appearance, UA Clear Clear 04/01/2017 2:40 AM T [facility] pH, UA 6.0 5.0 - 8.0 04/01/2017 2:40 AM T [facility] Specific [place], UA 1.020 1.005 - 1.030 04/01/2017 2:40 AM EDT [facility] Glucose, UA 500 mg/dL (2+)(A) Negative 04/01/2017 2:40 AM EDT [facility] Ketones, UA Negative Negative 04/01/2017 2:40 AM EDT [facility] Bilirubin, UA Negative Negative 04/01/2017 2:40 AM EDT [facility] Blood, UA Trace(A) Negative 04/01/2017 2:40 AM EDT [facility] Protein, UA >=300 mg/dL (3+)(A) Negative 04/01/2017 2:40 AM EDT [facility] Leuk Esterase, UA Negative Negative 04/01/2017 2:40 AM EDT [facility] Nitrite, UA Negative Negative 04/01/2017 2:40 AM EDT [facility] Urobilinogen, UA 0.2 E.U./dL 0.2 - 1.0 E.U./dL 04/01/2017 2:40 AM EDT [facility] Urine Urine specimen collection, clean catch / Unknown Collection / Unknown 04/01/2017 2:25 AM EDT 04/01/2017 2:28 AM EDT us Mickey Cerda MD URINE ORDERABLES Final Resu lt Performing Organization Address City/[facility]/ZIP Co de Phone Number [facility]
[address] [place] [address], [place] [phone] * hCG, Serum, Qualitative (04/01/2017 1:26 AM EDT) HCG Qualitative Negative Negative 7 2:09 AM EDT [facility] Blood Venipuncture / Unknown 04/01/2017 1:26 AM EDT 04/01/2017 1:31 AM EDT us Mickey Cerda MD LAB BLOOD ORDERABLES Final Result Performing Organization Address City/[facility]/ZIP Co de Phone Number [facility]
[address] [place] [address], [place] [phone] * (ABNORMAL) CBC Auto Differential (04/01/2017 1:25 AM EDT) WBC 8.79 4.80 - 10.80 10*3/mm3 04/01/2017 1:37 AM EDT [facility] RBC 4.26 4.20 - 5.40 10*6/mm3 04/01/2017 1:37 AM EDT [facility] Hemoglobin 12.7 12.0 - 16.0 g/dL 04/01/2017 1:37 AM [facility] Hematocrit 37.3 37.0 - 47.0 % 04/01/2017 1:37 AM [facility] MCV 87.6 81.0 - 99.0 fL 04/01/2017 1:37 AM [facility] MCH 29.8 27.0 - 31.0 pg 04/01/2017 1:37 AM [facility] MCHC 34.0 30.0 - 37.0 g/dL 04/01/2017 1:37 AM [facility] RDW 11.9 11.5 - 14.5 % 04/01/2017 1:37 AM [facility] RDW-SD 38.1 37.0 - 54.0 fl 04/01/2017 1:37 AM [facility] MPV 13.9(H) 6.0 - 12.0 fL 04/01/2017 1:37 AM [facility] Platelets 174 130 - 400 10*3/mm3 04/01/2017 1:37 AM [facility] Neutrophil % 54.0 37.0 - 80.0 % 04/01/2017 1:37 AM [facility] Lymphocyte % 36.4 10.0 - 50.0 % 04/01/2017 1:37 AM [facility] Monocyte % 6.1 0.0 - 12.0 % 04/01/2017 1:37 AM [facility] Eosinophil % 2.5 0.0 - 7.0 % 04/01/2017 1:37 AM [facility] Basophil % 0.5 0.0 - 2.5 % 04/01/2017 1:37 AM [facility] Immature Grans % 0.5 0.0 - 0.6 % 04/01/2017 1:37 AM [facility] Neutrophils, Absolute 4.75 2.00 - 6.90 10*3/mm3 04/01/2017 1:37 AM [facility] Lymphocytes, Absolute 3.20 0.60 - 3.40 10*3/mm3 04/01/2017 1:37 AM EDT [facility] Monocytes, Absolute 0.54 0.00 - 0.90 10*3/mm3 04/01/2017 1:37 AM EDT [facility] Eosinophils, Absolute 0.22 0.00 - 0.70 10*3/mm3 04/01/2017 1:37 AM EDT [facility] Basophils, Absolute 0.04 0.00 - 0.20 10*3/mm3 04/01/2017 1:37 AM EDT [facility] Immature Grans, Absolute 0.04 0.00 - 0.06 10*3/mm3 04/01/2017 1:37 AM EDT [facility] nRBC 0.0 0.0 - 0.0 /100 WBC 04/01/2017 1:37 AM EDT [facility] Blood Venipuncture / Unknown 04/01/2017 1:25 AM EDT 04/01/2017 1:31 AM EDT Mickey Cerda MD LAB BLOOD ORDERABLES Final Result [facility]
[address] [place] [address], * (ABNORMAL) Comprehensive Metabolic Panel (04/01/2017 1:25 AM EDT) Glucose 499(HH) 74 - 98 mg/dL 04/01/2017 1:57 AM EDT [facility] Comment:Glucose >180, Hemogl obin A1C recommended. BUN 13 7 - 20 mg/dL 04/01/2017 1:57 AM T [facility] Comment:Specimen hemolyzed. Results may be affected. Creatinine 1.40(H) 0.60 - 1.30 mg/dL 04/01/2017 1:57 AM EDT [facility] Sodium 131(L) 137 - 145 mmol/L 04/01/2017 1:57 AM EDT [facility] Potassium 4.4 3.5 - 5.1 mmol/L 04/01/2017 1:57 AM [facility] Comment:Specimen hemolyzed. Results may be affected. Chloride 100 98 - 107 mmol/L 04/01/2017 1:57 AM [facility] CO2 22.0(L) 26.0 - 30.0 mmol/L 04/01/2017 1:57 AM [facility] Calcium 9.0 8.4 - 10.2 mg/dL 04/01/2017 1:57 AM [facility] Total Protein 6.9 6.3 - 8.2 g/dL 04/01/2017 1:57 AM [facility] Albumin 3.90 3.50 - 5.00 g/dL 04/01/2017 1:57 AM [facility] ALT (SGPT) 29 13 - 69 U/L 04/01/2017 1:57 AM [facility] Comment:Specimen hemolyzed. Results may be affected. AST (SGOT) 19 15 - 46 U/L 04/01/2017 1:57 AM [facility] Comment:Specimen hemolyzed. Results may be affected. Alkaline Phosphatase 77 38 - 126 U/L 04/01/2017 1:57 AM [facility] Comment:Specimen hemolyzed. Results may be affected. Total Bilirubin 0.5 0.2 - 1.3 mg/dL 04/01/2017 1:57 AM [facility] eGFR Non Amer 45(L) >60 mL/min/1.7 3 04/01/2017 1:57 AM [facility] Globulin 3.0 gm/dL 04/01/2017 1:57 AM [facility] A/G Ratio 1.3 1.0 - 2.0 g/dL 04/01/2017 1:57 AM [facility] BUN/Creatinine Ratio 9.3 7.1 - 23.5 04/01/2017 1:57 AM [facility] Anion Gap 13.4 mmol/L 04/01/2017 1:57 AM [facility] Blood Venipuncture / Unknown 04/01/2017 1:25 AM EDT 04/01/2017 1:31 AM EDT Narrative [facility] - 04/01/2017 1:57 AM EDT Abnormal estimated GFR should be followed by more specific studies to confirm end stage chronic renal disease. The equation used for calculation may not be accurate for patients less than 19 years old, greater than 70 years old, patients at extremes of weight, malnutrition, or with acute renal dysfunction. Mickey Cerda MD LAB BLOOD ORDERABLES Final Result Performing Organization Address City/[facility] Co de Phone Number [facility]
[address] [place] [address], * (ABNORMAL) POC Glucose Fingerstick (04/01/2017 1:20 AM EDT) Glucose 513(HH) 70 - 130 mg/dL 04/01/2017 1:25 AM EDT [facility] Comment:Serial Number: [id number] Blood 04/01/2017 1:20 AM EDT 04/01/2017 1:25 AM EDT No Known Provider POINT OF CARE TEST ORDERABLES Final Result Performing Organization Address [facility] Co de Phone Number [facility]
[address] [place] [address], [place] [phone] documented in this encounter Visit Diagnoses Diagnosis Hyperglycemia- Primary Other abnormal glucose documented in this encounter Administered Medications Inactive Administered Medications - up to 3 most recent administrations Medication Order MAR Action Action Date Dose Rate Site insulin detemir (LEVEMIR) injection 60 Units 60 Units, Subcutaneous, Nightly, First dose on Tue04/01/17 at 0147, {BKC} Given 04/01/2017 1:54 AM EDT 60 Units Left Lower Abdomen insulin lispro protamine-insulin lispro (humaLOG 50-50) injection 15 Units 15 Units, Subcutaneous, Once, On Tue04/01/17 at 0211, For 1 dose, {BKC} Given 04/01/2017 2:31 AM EDT 15 Units Right Arm sodium chloride 0.9 % bolus 1,000 mL 1,000 mL, Intravenous, Once, On Tue04/01/17 at 0130, For 1 dose New Bag 04/01/2017 1:28 AM EDT 1,000 mL 999 mL/hr sodium chloride 0.9 % bolus 1,000 mL 1,000 mL, Intravenous, Once, On Tue04/01/17 at 0317, For 1 dose New Bag 04/01/2017 3:26 AM EDT 1,000 mL 999 mL/hr documented in this encounter Active and Recently Administered Medications Times are shown in EDT. Scheduled Medication Order 03/30/2017 03/31/2017 04/01/2017 insulin detemir (LEVEMIR) injection 60 Units 60 Units, Subcutaneous, Nightly, First dose on Tue04/01/17 at 0147, {BKC} 0154 (Given - Provid er: Roxann Sharpe RN) insulin lispro protamine-insulin lispro (humaLOG 50-50) injection 15 Units (COMPLETED) 15 Units, Subcutaneous, Once, On Tue04/01/17 at 0211, For 1 dose, {BKC} 0231 (Given - Provid er: Roxann Sharpe RN) sodium chloride 0.9 % bolus 1,000 mL (COMPLETED) 1,000 mL, Intravenous, Once, On Tue04/01/17 at 0130, For 1 dose 0128 (New Bag - Prov ider: Roxann Sharpe RN)0326 (Stopped - Provider: Roxann Sharpe, HERNÁN) sodium chloride 0.9 % bolus 1,000 mL (COMPLETED) 1,000 mL, Intravenous, Once, On Tue04/01/17 at 0317, For 1 dose 0326 (New Bag - Prov ider: Roxann Sharpe RN)0512 (Stopped - Provider: Roxann Sharpe, RN) documented in this encounter Care Teams [employer] Work[employer] Relationship Specialty Start Date End Date Jaquan Conley MD [address] [place] [id number] PCP - General 01/25/17 09/21/17 documented as of this encounter
--- OUTSIDE RECORDS SUMMARY | 2024-05-30 08:38 | XMS_ITS | Encounter Summary ---
Author Organization [facility] Address [address] [id number] Care Team Providers Care Geothermal System Installer Name Role Phone Pedro Harper MD, Devi Primary Care Provider [phone] Reason for Referral * Consultation (Routine) - Closed Specialty Diagnoses / Procedures Referred By Contac t Referred To Contact Obstetrics and Gynecology Diagnoses Devi Vasquez MD [address] [facility] [address] [place] [address] Phone: tel: fax: Jaskaran Quintana MD [address] [facility] [address] [place] [address] Phone: tel: fax: Referral ID Status Reason Start Date Expiration Date V isits Requested Visits Authorized [id number] Closed Specialty Services Required 12/30/2015 06/27/2016 1 1 Reason for Visit * Reason Comments Establish Care moved from [place] Amenorrhea last period October. thinks she is Diabetes on insulin pump. 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 Encounter Details Date Type Department Care Team (Late st Contact Info) Description 12/30/2015 9:45 AM EDT Office Visit [facility] [address] [address] [place] [id number] Devi Vasquez MD [address] [facility] [address] [place] [address] Missed period (Primary Dx); ; Type 2 diabetes mellitus with hyperglycemia Social History Tobacco Use Types Packs/Day Years Used Date Smoking Tobacco: Every Day Cigarettes Smokeless Tobacco: Never Tobacco Cessation:Ready to Q uit: Yes; Counseling Given: Yes Comments:start smoking at age 15 Alcohol Use Standard Drinks/Week Comments No 0 [...] Sign Reading Time Taken Comments Blood Pressure 126/80 12/30/2015 10:12 AM EDT Pulse 94 12/30/2015 10:12 AM EDT Temperature 36.5 ??C (97.7 ??F) 12/30/2015 1 0:12 AM EDT Respiratory Rate 15 12/30/2015 10:1 2 AM EDT Oxygen Saturation 97% 12/30/2015 10: 12 AM EDT Inhaled Oxygen Concentration - - Weight 95.2 kg (209 lb 12.8 oz) 016 10:12 AM EDT Height 165.1 cm (5' 5 ) 12/30/2015 10:1 2 AM EDT Body Mass Index 34.91 12/30/2015 10:12 AM EDT documented in this encounter Patient Instructions * Patient Instructions* Devi Vasquez MD - 12/30/2015 11:15 AM EDT Basic Carbohydrate Counting for Diabetes Mellitus Carbohydrate counting is a method for keeping track of the amount of carbohydrates you eat. Eating carbohydrates naturally increases the level of sugar (glucose) in your blood, so it is important foryou to know the amount that is okay for you to have in every meal. Carbohydrate counting helps keepthe level of glucose in your blood within normal limits. The amount of carbohydrates allowed is different for every person. A dietitian can help you calculate the amount that is right for you. Once you know the amount of carbohydrates you can have, you can count the carbohydrates in the foods you want to eat. Carbohydrates are found in the following foods: ?? Grains, such as breads and cereals. ?? Dried beans and soy products. ?? Starchy vegetables, such as potatoes, peas, and corn. ?? Fruit and fruit juices. ?? Milk and yogurt. ?? Sweets and snack foods, such as cake, cookies, candy, chips, soft drinks, and fruit drinks. CARBOHYDRATE COUNTING There are two ways to count the carbohydrates in your food. You can use either of the methods or a combination of both. Reading the Nutrition Facts on Packaged Food The Nutrition Facts is an area that is included on the labels of almost all packaged food and beverages in the [place]. It includes the serving size of that food or beverage and information about the nutrients in each serving of the food, including the grams (g) of carbohydrate per serving. Decide the number of servings of this food or beverage that you will be able to eat or drink. Multiply that number of servings by the number of grams of carbohydrate that is listed on the label for that serving. The total will be the amount of carbohydrates you will be having when you eat or drink this food or beverage. Learning Standard Serving Sizes of Food When you eat food that is not packaged or does not include Nutrition Facts on the label, you needto measure the servings in order to count the amount of carbohydrates.??A serving of most carbohydrate-rich foods contains about 15 g of carbohydrates. The following list includes serving sizes of carbohydrate-rich foods that provide 15 g of??carbohydrate per serving: ? 1 slice of bread (1 oz) or 1 six-inch tortilla. ? of a hamburger bun or Ukrainian muffin. ?? 4-6 crackers. ? cup unsweetened dry cereal. ? cup hot cereal. ?? ? cup rice or pasta. ? cup mashed potatoes or ?? of a large baked potato. ?? 1 cup fresh fruit or one small piece of fruit. ? cup canned or frozen fruit or fruit juice. ?? 1 cup milk. ?? ? cup plain fat-free yogurt or yogurt sweetened with artificial sweeteners. ? cup cooked dried beans or starchy vegetable, such as peas, corn, or potatoes. ?? Decide the number of standard-size servings that you will eat. Multiply that number of servings by 15 (the grams of carbohydrates in that serving). For example, if you eat 2 cups of strawberries, robinson have eaten 2 servings and 30 g of carbohydrates (2 servings x 15 g = 30 g). For foods such as soups and casseroles, in which more than one food is mixed in, you will need to count the carbohydrates in each food that is included. EXAMPLE OF CARBOHYDRATE COUNTING Sample Dinner? 3 oz chicken breast. ?? ? cup of brown rice. ? cup of corn. ?? 1 cup milk. ? 1 cup strawberries with sugar-free whipped topping. ?? Carbohydrate Calculation?? Step 1: Identify the foods that contain carbohydrates: ?? Rice. ? [place]. ? Milk. ? Strawberries. Step 2:??Calculate the number of servings eaten of each: ?? 2 servings of rice. ? 1 serving of corn. ? 1 serving of milk. ? 1 serving of strawberries. Step 3: ??Multiply each of those number of servings by 15 g: ?? 2 servings of rice x 15 g = 30 g. ? 1 serving of corn x 15 g = 15 g. ? 1 serving of milk x 15 g = 15 g. ? 1 serving of strawberries x 15 g = 15 g. Step 4: Add together all of the amounts to find the total grams of carbohydrates eaten: 30 g + 15 g+ 15 g + 15 g = 75 g. This information is not intended to replace advice given to you by your health care provider. Make sure you discuss any questions you have with your health care provider. Document Released: 07/04/2006 Document Revised: 07/25/2015 Document Reviewed: 05/31/2014 Elsevier Interactive Patient Education ??2016 [employer] documented in this encounter Progress Notes * Devi Vasquez MD - 12/30/2015 10:36 AM EDT Jose Elias Dwyer is a 25 y.o. female. Chief Complaint Patient presents with ??? Establish Care moved from [place] ??? Amenorrhea last period November 08, 2015. thinks she is ??? Diabetes on insulin pump. 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 LMP 11/08/15-pt thinks that she might be and has stopped all meds except insulin pump-Humalog about 12/02/15. Patient says that she had been on Lantus 60 units twice a day without control of blood sugar, was switched to an insulin pump. Pt states that she has been classified as type 2. Pt says that she has never had ketoacidosis. Pt had a blood sugar over 500 at age 12. States that this was a blood sugar done at school, and theschool nurse recommended that her mother take her to the doctor immediately. Patient states she didnot see the doctor at that time. Home test was positive, last month when she was craving milk and eggs. Pt has had heart burn. Pt has vomiting every night at about midnight. Last pt had morning sickness all 36 weeks. Pt sugar was over 400 at [facility] recently. She did not put enough insulin in her insulin pump. Pt is a smoker. Pt has an appt with Dr Jaskaran Quintana on 01/05/16 who delivered her last child. Pt needs referral. Pt needs statement for [facility] Pt does not communicate with her parents and does not know the family medical hx. The following portions of the patient's history were reviewed and updated as appropriate: allergies, current medications, past family history, past medical history, past social history, past surgicalhistory and problem list. Past 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 Diagnosis Date ??? Depression ??? Diabetes mellitus ??? Excessive thirst ??? H/O mammogram 2014 ??? Hot skin ??? Hypertension ??? Leg cramps ??? Pap smear for cervical cancer screening 11/08/2015 Sugar this am was 124. Review of Systems Constitutional: Negative. HENT: Negative. Eyes: Negative. Respiratory: Negative. Negative for shortness of breath and wheezing. Cardiovascular: Negative. Negative for chest pain and palpitations. Gastrointestinal: Positive for constipation. Endocrine: Positive for heat intolerance, polydipsia, polyphagia and polyuria. Negative for cold intolerance. Genitourinary: Negative. Musculoskeletal: Negative. Skin: Negative. Necrobiosis lipoidica diabeticorum Allergic/Immunologic: Negative. Neurological: Negative. Negative for seizures, weakness and numbness. Hematological: Negative. Psychiatric/Behavioral: Negative. Negative for dysphoric mood. The patient is not nervous/anxious. Objective Physical Exam Constitutional: She is oriented to person, place, and time. She appears well-developed. HENT: Head: Normocephalic. Right Ear: External ear normal. Left Ear: External ear normal. Nose: Nose normal. Mouth/Throat: Oropharynx is clear and moist. Eyes: Conjunctivae and EOM are normal. Pupils are equal, round, and reactive to light. Neck: Normal range of motion. Neck supple. Cardiovascular: Normal rate and regular rhythm. No murmur heard. Pulmonary/Chest: Effort normal and breath sounds normal. Abdominal: Soft. Bowel sounds are normal. Uterus was not palpated. Musculoskeletal: Normal range of motion. Neurological: She is alert and oriented to person, place, and time. Skin: Skin is warm and dry. Necrobiosis lipoidica diabeticorum, left ant lower leg 7cm x 4 cm Psychiatric: She has a normal mood and affect. Her behavior is normal. Nursing note and vitals reviewed. Assessment/Plan Crystal was seen today for establish care, amenorrhea and diabetes. Diagnoses and all orders for this visit: Missed period Orders: - POCT glycosylated hemoglobin (Hb A1C) - POCT , urine Orders: - Ambulatory referral to Obstetrics / Gynecology - POCT , urine Current Outpatient Prescriptions: ??? atorvastatin (LIPITOR) 40 MG tablet, TAKE 1 TABLET EVERY DAY, Disp: , Rfl: 0 ??? citalopram (CeleXA) 10 MG tablet, TAKE 2 TABLETS BY MOUTH DAILY, Disp: , Rfl: 0 ??? gabapentin (NEURONTIN) 300 MG capsule, TAKE ONE CAPSULE EACH NIGHT AT BEDTIME NEEDED, Disp: , Rfl: 0 ??? HUMALOG 100 UNIT/ML injection, USE DIRECTED PER INSULIN PUMP THERAPY.MAXIMUM DAILY DOSE OF 150 UNITS, Disp: , Rfl: 0 ??? lisinopril (PRINIVIL,ZESTRIL) 10 MG tablet, TAKE 1 TABLET EVERY DAY, Disp: , Rfl: 0 ??? loratadine (CLARITIN) 10 MG tablet, Take 10 mg by mouth. 1/2 daily as needed, Disp: , Rfl: ??? magnesium oxide (MAGOX) 400 (241.3 MG) MG tablet tablet, TAKE 1 TABLET EVERY DAY, Disp: , Rfl: 0 ??? pramipexole (MIRAPEX) 0.125 MG tablet, TAKE 1 TABLET EACH NIGHT AT BEDTIME, Disp: , Rfl: 0 Recent Results (from the past 168 hour(s)) POCT , urine Collection Time: 12/30/15 10:58 AM Result Value Ref Range HCG, Urine, QL Positive (A) Negative POCT glycosylated hemoglobin (Hb A1C) Collection Time: 12/30/15 11:06 AM Result Value Ref Range Hemoglobin A1C 11.2 % Pt to call for referral if Dr Quintana wants her to see Derm or Endocrine. Tighten diet. No candy bars. documented in this encounter Plan of Treatment Not on file documented as of this encounter Procedures Procedure Name Priority Date/Time Associated Diagnosis Comments POCT GLYCOSYLATED HEMOGLOBIN (HGB A1C) Routine 12/30/2015 11:06 AM EDT Missed period POCT PEFORM URINE Routine 12/30/2015 10:58 AM EDT Missed period documented in this encounter Results * POCT glycosylated hemoglobin (Hb A1C) (12/30/2015 11:06 AM EDT) Hemoglobin A1C 11.2 % [facility] Blood specimen (specimen) 12/30/2015 11:06 AM EDT us Devi Harper MD POINT OF CARE TEST ORDERABL ES Final Result [facility]
[address] [place] [address], * (ABNORMAL) POCT , urine (12/30/2015 10:58 AM EDT) HCG, Urine, QL Positive(A ) Negative [facility] Urine specimen (specimen) 12/30/2015 10:58 AM EDT us Devi Harper MD POINT OF CARE TEST ORDERABL ES Final Result [facility]
[address] [place] [address], documented in this encounter Visit Diagnoses Diagnosis Missed period- Primary Type 2 diabetes mellitus with hyperglycemia documented in this encounter Care Teams Geothermal System Installer Relationship Specialty Start Date End Date Devi Vasquez MD [address] [facility] [address] [place] [address] PCP - General Family Medicine 12/30/15 01/24/17 documented as of this encounter
--- OUTSIDE RECORDS SUMMARY | 2024-05-30 08:38 | XMS_ITS | Encounter Summary ---
Author Organization [facility] Address [address] [place] [address] Care Team Providers Care Public Health Sanitarian Name Role Phone Unavailable Primary Care Provider Unavailabl e Reason for Visit * (Emergency) - Closed Specialty Diagnoses / Procedures Referred By Contac t Referred To Contact Radiology Diagnoses Pain in joint, multiple sites Procedures XR Knee 3 View Left Fabiola Guzman MD [address] [place] [phone] Phone: tel: fax: Referral ID Status Reason Start Date Expiration Date Visits Re quested Visits Authorized [id number] Closed 02/15/2018 02/15/2019 1 1 Encounter Details Date Type Department Care Team (Latest Contact Info) Description 02/15/2018 5:35 PM EDT - 02/15/2018 11:59 PM EDT Hospital Encounter [facility] [address] [place] [address] Fabiola Guzman MD [address] [place] [id number] Discharge Disposition: Home or Self Care [...] MG tablet Takes 20mg daily 0 12/23/2015 amLODIPine (NORVASC) 10 MG tablet Take 10 mg by mouth Daily. 8 amoxicillin (AMOXIL) 500 MG capsule Take 1,000 mg by mouth 2 (Two) Times a Day. 8 aspirin 81 MG chewable tablet Chew 81 mg Daily. 8 atorvastatin (LIPITOR) 10 MG tablet Take 10 mg by mouth Daily. 8 citalopram (CeleXA) 10 MG tablet TAKE [...] of 9 injections per day. 8 lisinopril (PRINIVIL,ZESTRI L) 20 MG tablet Take 20 mg by [...] EACH NIGHT AT BEDTIME 0 12/23/2015 8 documented as of this encounter Plan of Treatment Not on file documented as of this encounter Procedures Procedure Name Priority Date/Time Associated Diagnosis Comments XR KNEE 3 VW LEFT STAT 02/15/2018 5:5 2 PM EDT Pain in joint, multiple sites documented in this encounter Results * XR Knee 3 View Left (02/15/2018 5:52 PM EDT) Anatomical Region Laterality Modality Lower Extremities, Knee Left Radiogra [facility] 02/15/2018 5:53 PM EDT Impressions 02/15/2018 5:54 PM EDT No acute fracture. If clinical symptoms persist consider an MRI. ?? This report was finalized on 02/15/2018 5:54 PM by Brittny Lacey M.D.. Narrative 02/15/2018 5:54 PM EDT PROCEDURE: XR KNEE 3 VW LEFT- History: M25.5; M25.50-Pain in unspecified joint COMPARISON: None. FINDINGS: ??A 3 view exam demonstrates no acute fracture or dislocation. The joint spaces are preserved. No soft tissue abnormality is seen. ? Procedure Note Brittny Lacey MD - 02/15/2018 PROCEDURE: XR KNEE 3 VW LEFT- History: M25.5; M25.50-Pain in unspecified joint COMPARISON: None. FINDINGS: A 3 view exam demonstrates no acute fracture or dislocation. The joint spaces are preserved. No soft tissue abnormality is seen. IMPRESSION: No acute fracture. If clinical symptoms persist consider an MRI. This report was finalized on 02/15/2018 5:54 PM by Brittny Lacey M.D.. Fabiola Guzman MD IMG DIAGNOSTIC IMAGING ORDER BERTIN Final Result documented in this encounter Visit Diagnoses Not on filedocumented in this encounter
--- OUTSIDE RECORDS SUMMARY | 2024-05-30 08:38 | XMS_ITS | Encounter Summary ---
Author Organization [facility] Address [address] [place] [address] Care Team Providers Care Crude Oil Driver Name Role Phone Lauren Slade ANJU Primary Care Provider [phone] Reason for Visit * Reason Comments Hyperglycemia Encounter Details Date Type Department Care Team (Late st Contact Info) Description 01/14/2018 7:58 PM EDT - 01/14/2018 10:20 PM EDT Emergency [facility] [address] [place] [phone] Dominik Rizo MD [address] [place] [address] Type 2 diabetes mellitus with hyperglycemia, with long-term current use of insulin (Primary Dx); Essential hypertension Discharge Disposition: Home or Self Care [...] Sign Reading Time Taken Comments Blood Pressure 133/108 01/14/2018 10:19 PM EDT Pulse 89 01/14/2018 10:19 PM EDT Temperature 36.9 ??C (98.5 ??F) 01/14/2018 1 0:19 PM EDT Respiratory Rate 18 01/14/2018 10:1 9 PM EDT Oxygen Saturation 98% 01/14/2018 10: 19 PM EDT Inhaled Oxygen Concentration - - Weight 82.5 kg (181 lb 12.8 oz) 01/14/2018 7:56 PM EDT Height 165.1 cm (5' 5 ) 01/14/2018 7:56 PM EDT Body Mass Index 30.25 01/14/2018 7:56 PM EDT documented in this encounter Discharge Instructions * Discharge Instructions* Stormy Vyas APRN - 01/14/2018 10:10 PM EDT Drink plenty of water. * Attachments The following attachments cannot be sent through Care Everywhere. * Blood Glucose Monitoring Adult (Macanese) documented in this encounter Medications at Time [...] 12/23/2015 8 documented as of this encounter ED Notes * Stormy Vyas, [employer] O[employer]ERV[employer] - 01/14/2018 10:20 PM EDT Subjective History of Present Illness 27-year-old female presents with complaints of an elevated blood sugar that read too high to read on her machine. She has been taking her insulin as ordered. She denies nausea vomiting. She does indicate that today she ate a large fudge Brownie as well as drink milk. Immediately prior to coming to the emergency department she gave herself 25 units of not feel all based on this snack she had. Blood sugars have been labile and she is working with her primary care provider in regard to that. Review of Systems All other systems reviewed [...] and well-nourished. HENT: Head: Normocephalic and atraumatic. Mouth/Throat: Oropharynx is clear and moist. Eyes: Conjunctivae and EOM are normal. Pupils are equal, round, and reactive to light. Neck: Normal range of motion. Neck supple. Cardiovascular: Normal rate, regular rhythm, normal heart sounds and intact distal pulses. Pulmonary/Chest: Effort normal and breath sounds normal. Abdominal: Soft. Bowel sounds are normal. Musculoskeletal: Normal range of motion. Neurological: She is alert. Skin: Skin is warm. Capillary refill takes less than 2 seconds. Psychiatric: She has a normal mood and affect. Her behavior is normal. Judgment normal. Nursing note and vitals reviewed. Procedures ED Course The ABG demonstrates pH of 7.35, urine has large amount of glucose and a large amount of protein, but no ketones. Gas is normal at 1.7. CBC is unremarkable. Patient was given a liter of normal saline. She was informed she is not in DKA. Her blood pressure was elevated during her ER visit, but she states she thinks is because she is nervous. Will follow-up with her primary care provider this week.Check of her blood sugar here in the emergency department demonstrates 335. I did recommend that she may not want to eat concentrated sweets such as she did without taking off a log at the same time.She was discharged in stable condition. MDM Final diagnoses: Type 2 diabetes mellitus with hyperglycemia, with long-term current use of insulin ([facility]) Essential hypertension Stormy yVas APRN 01/16/18 2221 Cosigned by Dominik Rizo MD at 01/17/2018 12:33 AM EDT Associated attestation - Dominik Rizo MD - 01/17/2018 12:33 AM EDT For this patient encounter, I reviewed the SURFACE TO AIR WEAPONS OFFICER or PA documentation, treatment plan, and medical decision making. Dominik Rizo MD 01/17/2018 12:33 AM documented in this encounter Plan of Treatment Not on file documented as of this encounter Procedures Procedure Name Priority Date/Time Associated Diagnosis Comments POCT GLUCOSE FINGERSTICK STAT 01/14/2018 9:31 PM EDT BLOOD GAS, VENOUS STAT 01/14/2018 9:1 0 PM EDT CBC WITH AUTO DIFFERENTIAL STAT 01/14/2018 9:01 PM EDT CBC AND DIFFERENTIAL STAT 01/14/2018 9:01 PM EDT LACTIC ACID, PLASMA STAT 01/14/2018 9 :01 PM EDT COMPREHENSIVE METABOLIC PANEL STAT 01/14/2018 9:01 PM EDT URINALYSIS, MICROSCOPIC ONLY STAT 01/14/2018 9:00 PM EDT URINALYSIS W/ CULTURE IF INDICATED STAT 01/14/2018 9:00 PM EDT POCT GLUCOSE FINGERSTICK STAT 01/14/2018 8:05 PM EDT documented in this encounter Results * (ABNORMAL) POC Glucose Once (01/14/2018 9:31 PM EDT) Glucose 334(H) 70 - 130 mg/dL 01/14/2018 11:25 PM EDT [facility] Comment:Serial Number: [id number] Blood 01/14/2018 9:31 PM EDT 01/14/2018 11:25 PM EDT Dominik Rizo MD POINT OF CARE TEST ORDERABLES Final Result [facility]
[address] [id number], * (ABNORMAL) Blood Gas, Venous (01/14/2018 9:10 PM EDT) Site Arterial Line 01/14/2018 9:07 PM EDT [facility] pH, Venous 7.354 7.320 - 7.420 pH Units 01/14/2018 9:07 PM EDT [facility] pCO2, Venous 40.8 40.0 - 50.0 mm Hg 01/14/2018 9:07 PM EDT [facility] pO2, Venous 28.9(L) 30.0 - 50.0 mm Hg 01/14/2018 9:07 PM EDT [facility] HCO3, Venous 22.7 22.0 - 28.0 mmol/L 01/14/2018 9:07 PM EDT [facility] Base Excess, Venous -2.8(L) 0.0 - 2.0 mmol/L 01/14/2018 9:07 PM EDT [facility] O2 Saturation, Venous 53.5 45.0 - 75.0 % 01/14/2018 9:07 PM EDT [facility] Hemoglobin, Blood Gas 11.7(L) 12 - 18 g/dL 01/14/2018 9:07 PM EDT [facility] Barometric Pressure for Blood Gas 735 mmHg 01/14/2018 9:07 PM EDT [facility] Modality Room Air 01/14/2018 9:07 PM EDT [facility] FIO2 21 % 01/14/2018 9:07 PM EDT [facility] Venous Blood 01/14/2018 9:10 PM EDT 01/14/2018 9:07 PM EDT Dominik Rizo MD LAB BLOOD ORDERABLES Final Res ult [facility]
[address] [place] [address], * (ABNORMAL) CBC Auto Differential (01/14/2018 9:01 PM EDT) WBC 9.85 4.80 - 10.80 10*3/mm3 01/14/2018 9:09 PM EDT [facility] RBC 3.98(L) 4.20 - 5.40 10*6/mm3 01/14/2018 9:09 PM EDT [facility] Hemoglobin 11.8(L) 12.0 - 16.0 g/dL 01/14/2018 9:09 PM EDT [facility] Hematocrit 33.9(L) 37.0 - 47.0 % 01/14/2018 9:09 PM EDT [facility] MCV 85.2 81.0 - 99.0 fL 01/14/2018 9:09 PM EDT [facility] MCH 29.6 27.0 - 31.0 pg 01/14/2018 9:09 PM EDT [facility] MCHC 34.8 30.0 - 37.0 g/dL 01/14/2018 9:09 PM EDT [facility] RDW 11.9 11.5 - 14.5 % 01/14/2018 9:09 PM EDT [facility] RDW-SD 37.0 37.0 - 54.0 fl 01/14/2018 9:09 PM EDT [facility] MPV 13.2(H) 6.0 - 12.0 fL 01/14/2018 9:09 PM EDT [facility] Platelets 192 130 - 400 10*3/mm3 01/14/2018 9:09 PM EDT [facility] Neutrophil % 44.4 37.0 - 80.0 % 01/14/2018 9:09 PM EDT [facility] Lymphocyte % 46.7 10.0 - 50.0 % 01/14/2018 9:09 PM EDT [facility] Monocyte % 4.5 0.0 - 12.0 % 01/14/2018 9:09 PM EDT [facility] Eosinophil % 3.8 0.0 - 7.0 % 01/14/2018 9:09 PM EDT [facility] Basophil % 0.4 0.0 - 2.5 % 01/14/2018 9:09 PM EDT [facility] Immature Grans % 0.2 0.0 - 0.6 % 01/14/2018 9:09 PM EDT [facility] Neutrophils, Absolute 4.38 2.00 - 6.90 10*3/mm3 01/14/2018 9:09 PM EDT [facility] Lymphocytes, Absolute 4.60(H) 0.60 - 3.40 10*3/mm3 01/14/2018 9:09 PM EDT [facility] Monocytes, Absolute 0.44 0.00 - 0.90 10*3/mm3 01/14/2018 9:09 PM EDT [facility] Eosinophils, Absolute 0.37 0.00 - 0.70 10*3/mm3 01/14/2018 9:09 PM EDT [facility] Basophils, Absolute 0.04 0.00 - 0.20 10*3/mm3 01/14/2018 9:09 PM EDT [facility] Immature Grans, Absolute 0.02 0.00 - 0.06 10*3/mm3 01/14/2018 9:09 PM EDT [facility] nRBC 0.0 0.0 - 0.0 /100 WBC 01/14/2018 9:09 PM EDT [facility] Blood Venipuncture / Unknown 01/14/2018 9:01 PM EDT 01/14/2018 9:06 PM EDT us Stormy Vyas [employer] LAB BLOOD ORDERABLE S Final Result [facility]
[address] [id number], * Lactic Acid, Plasma (01/14/2018 9:01 PM EDT) Lactate 1.7 0.5 - 2.0 mmol/L 01/14/2018 9:23 PM EDT [facility] Blood Venipuncture / Unknown 01/14/2018 9:01 PM EDT 01/14/2018 9:06 PM EDT Stormy Vyas [employer] LAB BLOOD ORDERABLE S Final Result [facility]
[address] [place] [address], * (ABNORMAL) Comprehensive Metabolic Panel (01/14/2018 9:01 PM EDT) Glucose 380(HH) 74 - 98 mg/dL 01/14/2018 9:51 PM EDT [facility] BUN 30(H) 7 - 20 mg/dL 01/14/2018 9:51 PM EDT [facility] Creatinine 2.00(H) 0.60 - 1.30 mg/dL 01/14/2018 9:51 PM EDT [facility] Sodium 134(L) 137 - 145 mmol/L 01/14/2018 9:51 PM EDT [facility] Potassium 4.3 3.5 - 5.1 mmol/L 01/14/2018 9:51 PM EDT [facility] Chloride 101 98 - 107 mmol/L 01/14/2018 9:51 PM EDT [facility] CO2 22.0(L) 26.0 - 30.0 mmol/L 01/14/2018 9:51 PM EDT [facility] Calcium 9.5 8.4 - 10.2 mg/dL 01/14/2018 9:51 PM EDT [facility] Total Protein 6.9 6.3 - 8.2 g/dL 01/14/2018 9:51 PM EDT [facility] Albumin 3.80 3.50 - 5.00 g/dL 01/14/2018 9:51 PM EDT [facility] ALT (SGPT) 12(L) 13 - 69 U/L 01/14/2018 9:51 PM EDT [facility] AST (SGOT) 15 15 - 46 U/L 01/14/2018 9:51 PM EDT [facility] Alkaline Phosphatase 104 38 - 126 U/L 01/14/2018 9:51 PM EDT [facility] Total Bilirubin 0.3 0.2 - 1.3 mg/dL 01/14/2018 9:51 PM EDT [facility] eGFR Non Amer 30(L) >60 mL/min/1.7 3 01/14/2018 9:51 PM EDT [facility] Globulin 3.1 gm/dL 01/14/2018 9:51 PM EDT [facility] A/G Ratio 1.2 1.0 - 2.0 g/dL 01/14/2018 9:51 PM EDT [facility] BUN/Creatinine Ratio 15.0 7.1 - 23.5 01/14/2018 9:51 PM EDT [facility] Anion Gap 15.3 10.0 - 20.0 mmol/L 01/14/2018 9:51 PM EDT [facility] Blood Venipuncture / Unknown 01/14/2018 9:01 PM EDT 01/14/2018 9:06 PM EDT Narrative [facility] - 01/14/2018 9:51 PM EDT GFR Normal >60 Chronic Kidney Disease <60 Kidney Failure <15 Stormy Vyas [employer] OR [employer] O[employer]ER LAB BLOOD ORDERABLE S Final Result [facility]
[address] [place] [address], [place] [phone] * (ABNORMAL) Urinalysis, Microscopic Only - Urine, Clean Catch (01/14/2018 9:00 PM EDT) RBC, UA 0-2(A) None Seen /HPF 01/14/2018 9:25 PM EDT [facility] WBC, UA 0-2(A) None Seen /HPF 01/14/2018 9:25 PM EDT [facility] Bacteria, UA Trace(A) None Seen /HPF 01/14/2018 9:25 PM EDT [facility] Squamous Epithelial Cells, UA 3-6(A) None Seen, 0-2 /HPF 01/14/2018 9:25 PM EDT [facility] Hyaline Casts, UA None Seen None Seen /LPF 01/14/2018 9:25 PM EDT [facility] Mucus, UA Trace None Seen, Trace /HPF 01/14/2018 9:25 PM EDT [facility] Methodology Manual Light Microscopy 01/14/2018 9:25 PM T [facility] Urine Urine specimen collection, clean catch / Unknown Collection / Unknown 01/14/2018 9:00 PM EDT 01/14/2018 9:06 PM EDT Stormy Vyas [employer]ER URINE ORDERABLES nal Result [facility]
[address] [place] [address], [place] [phone] * (ABNORMAL) Urinalysis With Culture If Indicated - Urine, Clean Catch (01/14/2018 9:00 PM EDT) Color, UA Yellow Yellow, Straw 01/14/2018 9:13 PM EDT [facility] Appearance, UA Clear Clear 01/14/2018 9:13 PM EDT [facility] pH, UA 6.5 5.0 - 8.0 01/14/2018 9:13 PM EDT [facility] Specific [place], UA 1.020 1.005 - 1.030 01/14/2018 9:13 PM EDT [facility] Glucose, UA >=1000 mg/dL (3+)(A) Negative 01/14/2018 9:13 PM EDT [facility] Ketones, UA Negative Negative 01/14/2018 9:13 PM EDT [facility] Bilirubin, UA Negative Negative 01/14/2018 9:13 PM EDT [facility] Blood, UA Trace(A) Negative 01/14/2018 9:13 PM EDT [facility] Protein, UA >=300 mg/dL (3+)(A) Negative 01/14/2018 9:13 PM EDT [facility] Leuk Esterase, UA Negative Negative 01/14/2018 9:13 PM EDT [facility] Nitrite, UA Negative Negative 01/14/2018 9:13 PM EDT [facility] Urobilinogen, UA 0.2 E.U./dL 0.2 - 1.0 E.U./dL 01/14/2018 9:13 PM EDT [facility] Urine Urine specimen collection, clean catch / Unknown Collection / Unknown 01/14/2018 9:00 PM EDT 01/14/2018 9:06 PM EDT Stormy Vyas APRN URINE ORDERABLES Fi nal Result Performing Organization Address City/[facility]/ZIP Co de Phone Number [facility]
[address] [place] [address], * (ABNORMAL) POC Glucose Once (01/14/2018 8:05 PM EDT) [facility] Signature Glucose 533(HH) 70 - 130 mg/dL 01/14/2018 8:10 PM EDT [facility] Comment:Serial Number: [id number] Blood 01/14/2018 8:05 PM EDT 01/14/2018 8:10 PM EDT Dominik Rizo MD POINT OF CARE TEST ORDERABLES Final Result Performing Organization Address [facility]/ZIP Co de Phone Number [facility]
[address] [place] [address], [place] [phone] documented in this encounter Visit Diagnoses Diagnosis Type 2 diabetes mellitus with hyperglycemia, with long-term current use of insulin- Primary Essential hypertension Unspecified essential hypertension documented in this encounter Administered Medications Inactive Administered Medications - up to 3 most recent administrations Medication Order MAR Action Action Date Dose Rate Site sodium chloride 0.9 % bolus 1,000 mL 1,000 mL, Intravenous, at 4,000 mL/hr, Administer over 0.25 Hours, Once, On 01/14/18 at 2019, For 1 dose New Bag 01/14/2018 9:02 PM EDT 1,000 mL 4000 mL/hr documented in this encounter Active and Recently Administered Medications Times are shown in EDT. Scheduled Medication Order 01/12/2018 01/13/2018 01/14/2018 sodium chloride 0.9 % bolus 1,000 mL (COMPLETED) 1,000 mL, Intravenous, at 4,000 mL/hr, Administer over 0.25 Hours, Once, On 01/14/18 at 2019, For 1 dose 2101 (New Bag - Prov ider: Stephani Hutton RN)2218 (Stopped - Provider: Stephani Hutton RN) documented in this encounter Care Teams Crude Oil Driver Relationship Specialty Start Date End Date Lauren Slade APRN [address] [facility] [address] [place] [address] PCP - General Family Medicine 09/22/17 02/05/18 documented as of this encounter
--- OUTSIDE RECORDS SUMMARY | 2024-05-30 08:38 | XMS_ITS | Encounter Summary ---
[facility] Address [address] [place] [address] Care Team Providers Care Sliding Joint Maker Name Role Phone Unavailable Primary Care Provider Unavailabl e Reason for Visit * Reason Comments Cough Nasal Congestion Encounter Details Date Type Department Care Team (Late st Contact Info) Description 03/14/2018 10:11 PM EDT - 03/14/2018 10:59 PM EDT Emergency [facility] [address] [place] [phone] Dominik Rizo MD [address] [place] [address] Nasal congestion (Primary Dx); Nausea and vomiting, intractability of vomiting not specified, unspecified vomiting type Discharge Disposition: Home or Self Care [...] Sign Reading Time Taken Comments Blood Pressure 160/104 03/14/2018 10:08 PM EDT Pulse 113 03/14/2018 10:08 PM EDT Temperature 36.6 ??C (97.9 ??F) 03/14/2018 1 0:08 PM EDT Respiratory Rate 18 03/14/2018 10:0 8 PM EDT Oxygen Saturation 97% 03/14/2018 10: 08 PM EDT Inhaled Oxygen Concentration - - Weight 80.6 kg (177 lb 12.8 oz) 018 10:08 PM EDT Height 165.1 cm (5' 5 ) 03/14/2018 10:0 8 PM EDT Body Mass Index 29.59 03/14/2018 10:08 PM EDT documented in this encounter Discharge Instructions * Attachments The following attachments cannot be sent through Care Everywhere. * Oxymetazoline nasal spray (Ivorian) documented in this encounter Medications at [...] ED Notes * Dominik Rizo MD - 03/14/2018 10:50 PM EDT Subjective 21-year-old female that presents with nasal congestion, nausea or vomiting. Patient states she spent the weekend that her mother's and her mother has 2 large pit bulls and she believes she is allergic to them. States since that time she's had severe nasal congestion and cough. She states that she has had the phlegm draining down her throat make her sick to her stomach. States she's vomited 6 times today. She has been able to hold down fluids though. Review of Systems All other systems reviewed [...] and vitals reviewed. GEN: No acute distress, morbidly obese Head: Normocephalic, atraumatic Eyes: Pupils equal round reactive to light ENT: Posterior pharynx normal in appearance, oral mucosa is dry, nasal mucosa is red and inflamed Chest: Nontender to palpation Cardiovascular: Regular rate Lungs: Clear to auscultation bilaterally Abdomen: Soft, nontender, nondistended, no peritoneal signs Extremities: No edema, normal appearance Neuro: GCS 15 Psych: Mood and affect are appropriate Procedures ED Course MDM Number of Diagnoses or Management Options Nasal congestion: Nausea and vomiting, intractability of vomiting not specified, unspecified vomiting type: Diagnosis management comments: Patient was given oxymetazoline. Open her up for now. She was prescribed Zyrtec and Zofran for symptom control. This likely is all related to allergies. Amount and/or Complexity of Data Reviewed Clinical lab tests: ordered and reviewed Decide to obtain previous medical records or to obtain history from someone other than the patient:yes Obtain history from someone other than the patient: yes Review and summarize past medical records: yes Final diagnoses: Nasal congestion Nausea and vomiting, intractability of vomiting not specified, unspecified vomiting type Dominik Rizo MD 03/14/18 6535 documented in this encounter Plan of Treatment Not on file documented as of this encounter Visit Diagnoses Diagnosis Nasal congestion- Primary Other diseases of nasal cavity and sinuses Nausea and vomiting, intractability of vomiting not specified, unspecified vomiting type documented in this encounter Administered Medications Inactive Administered Medications - up to 3 most recent administrations Medication Order MAR Action Action Date Dose Rate Site ondansetron ODT (ZOFRAN-ODT) disintegrating tablet 4 mg 4 mg, Oral, Once, On Tue03/14/18 at 2246, For 1 dose, Place on tongue and allow to dissolve. Given 03/14/2018 10:48 PM EDT 4 mg oxymetazoline (AFRIN) nasal spray 2 spray 2 spray, Each Nare, Once, On Tue03/14/18 at 2245, For 1 dose, ?? {BKC} Given 03/14/2018 10:48 PM EDT 2 sprays documented in this encounter Active and Recently Administered Medications Times are shown in EDT. Scheduled Medication Order 03/12/2018 03/13/2018 03/14/2018 ondansetron ODT (ZOFRAN-ODT) disintegrating tablet 4 mg (COMPLETED) 4 mg, Oral, Once, On Tue03/14/18 at 2246, For 1 dose, Place on tongue and allow to dissolve. 224 (Given - Provid er: Bing Tomlin RN) oxymetazoline (AFRIN) nasal spray 2 spray (COMPLETED) 2 spray, Each Nare, Once, On Tue03/14/18 at 2245, For 1 dose, ?? {BKC} 224 (Given - Provid er: Bing Tomlin RN) documented in this encounter
--- OUTSIDE RECORDS SUMMARY | 2024-05-30 08:38 | XMS_ITS | Encounter Summary ---
[facility] Address [address] [place] [address] Care Team Providers Care Grades 1 Thru 6 Home Teacher Name Role Phone Jaquan Conley MD Primary Care Provider [phone] Reason for Visit * Reason Comments Flank Pain Encounter Details Date Type Department Care Team (Late st Contact Info) Description 05/10/2017 12:39 PM EDT - 05/10/2017 7:05 PM EDT Emergency [facility] [address] [place] [id number] Tatum James MD [address] [place] [address] Hyperglycemia (Primary Dx); Noncompliance with medication regimen; Chest pain, unspecified type Discharge Disposition: Home [...] Sign Reading Time Taken Comments Blood Pressure 127/81 05/10/2017 4:02 PM EDT Pulse 78 05/10/2017 4:02 PM EDT Temperature 37.1 ??C (98.7 ??F) 05/10/2017 12:31 PM E DT Respiratory Rate 16 05/10/2017 12:31 PM EDT Oxygen Saturation 95% 05/10/2017 12:31 PM EDT Inhaled Oxygen Concentration - - Weight 82.6 kg (182 lb) 05/10/2017 12:31 PM EDT Height 165.1 cm (5' 5 ) 05/10/2017 12:31 PM EDT Body Mass Index 30.29 05/10/2017 12:31 PM EDT documented in this encounter Discharge Instructions * Attachments The following attachments cannot be sent through Care Everywhere. * HYPERGLYCEMIA (GEORGIAN) * NONSPECIFIC CHEST PAIN (GEORGIAN) documented in this encounter Medications at Time [...] as of this encounter ED Notes * Shaunna Grant RN - 05/10/2017 6:54 PM EDT 2 ns bolus complete. Intended to recheck pt BGL post 2nd liter NS while pt remained npo however, ptinsisted on having something to eat. Will recheck at this time anyway prior to discharge Shaunna Grant RN 05/10/17 2201 * Pearl Wakefield APRN - 05/10/2017 1:38 PM EDT Subjective History of Present Illness Is a 26-year-old female who comes in today complaining of midsternal chest pain that radiated into her under arm that started yesterday. She states that it has been intermittent since then initial symptoms started she reports she did have some shortness of breath and nausea there was accompanying this sharp chest pain. She states while she was watching TV as when the happen the first time and thesecond time she experienced the pain she was laying down. She went to her primary care provider today at [facility] and they referred her here for evaluation. She is a type I diabetic and reports that her blood sugars have been reading greater than 600 for the past couple weeks. She reports that she doesn't always take her blood sugar because her sugar drops and she feels bad. She states she has not had her insulin in a few days. She also is positive for smoking and positive for hypertension and hyperlipidemia positive for family history of heart disease. Review of Systems Constitutional: Negative. Eyes: Negative. Respiratory: Positive for chest tightness and shortness of breath. Cardiovascular: Positive for chest pain. Gastrointestinal: Positive for nausea. Genitourinary: Negative. Skin: Negative. Neurological: Positive for headaches. Psychiatric/Behavioral: Negative. All other systems reviewed and [...] Topics Concern ??? None Social History Narrative Objective Physical Exam Constitutional: She appears well-developed [...] are appropriate Procedures ED Course ED Course Comment By Time When reviewing the ABG this is a venous specimen. Pearl Kellen Wakefield APRN 05/10 1337 Complain of headache. Will give tylenol and water. Chest pain has resolved. Pearl L Ashu 1548 Feeling much better. We will initiate the last fluid bolus and will let her go home and take her scheduled insulin. She is agreeable with this plan of care. Return to care instructions having given and she is agreeable to return if she has any other symptoms of chest pain shortness of air nausea orvomiting. Pearl Wakefield APRN 05/10 174 Wells' Criteria (for pulmonary embolism) reviewed and/or performed as part of the patient evaluation and treatment planning process. The result associated with this review/performance is: 0 MDM Number of Diagnoses or Management Options Diagnosis management comments: Differential diagnosis would include acute coronary syndrome, chest wall pain, pericarditis, DKA, pulmonary embolism. At this time we will rule out acute coronary syndrome also given ABG to rule out DKA and chest x-ray to rule out pneumonia. Amount and/or Complexity of Data Reviewed Clinical lab tests: reviewed and ordered Tests in the radiology section of CPT??: ordered and reviewed Review and summarize past medical records: yes Discuss the patient with other providers: yes Independent visualization of images, tracings, or specimens: yes Final diagnoses: Hyperglycemia Noncompliance with medication regimen Chest pain, unspecified type Pearl Wakefield APRN 05/10/17 947 Cosigned by Tatum James MD at 05/10/2017 5:55 PM EDT Associated attestation - Tatum James MD - 05/10/2017 5:55 PM EDT For this patient encounter, I reviewed the DISTRIBUTION ACCOUNTING CLERK or PA documentation, treatment plan, and medical decision making. Tatum James MD 05/10/2017 5:55 PM documented in this encounter Plan of Treatment Not on file documented as of this encounter Procedures Procedure Name Priority Date/Time Associated Diagnosis Comments POCT GLUCOSE FINGERSTICK STAT 05/10/2017 5:40 PM EDT TROPONIN STAT 05/10/2017 4:39 PM EDT XR CHEST 2 VW STAT 05/10/2017 1:58 PM EDT URINALYSIS, MICROSCOPIC ONLY STAT 05/10/2017 1:49 PM EDT URINALYSIS W/ CULTURE IF INDICATED STAT 05/10/2017 1:49 PM EDT CBC WITH AUTO DIFFERENTIAL STAT 05/10/2017 1:49 PM EDT TROPONIN STAT 05/10/2017 1:49 PM EDT D-DIMER, QUANTITATIVE STAT 05/10/2017 1:49 PM EDT CBC AND DIFFERENTIAL STAT 05/10/2017 1:49 PM EDT LIPASE STAT 05/10/2017 1:49 PM EDT COMPREHENSIVE METABOLIC PANEL STAT 05/10/2017 1:49 PM EDT BLOOD GAS, ARTERIAL W/CO-OXIMETRY STAT 05/10/2017 1:29 PM EDT documented in this encounter Results * (ABNORMAL) POC Glucose Fingerstick (05/10/2017 5:40 PM EDT) Glucose 434(H) 70 - 130 mg/dL 05/10/2017 5:45 PM EDT [facility] Comment:Serial Number: [id number]: [id number] Blood 05/10/2017 5:40 PM EDT 05/10/2017 5:45 PM EDT Tatum James MD POINT OF CARE TEST ORD ERABLES Final Result Performing Organization Address [facility] Co de Phone Number [facility]
[address] [place] [address], * Troponin (05/10/2017 4:39 PM EDT) Troponin I <0.012 0.000 - 0.034 ng/mL 05/10/2017 5:28 PM EDT [facility] Blood Venipuncture / Unknown 05/10/2017 4:39 PM EDT 05/10/2017 4:42 PM EDT Narrative [facility] - 05/10/2017 5:28 PM EDT Normal Patient Upper Reference Limit (URL) (99th Percentile)=0.03 ng/mL Non-AMI Illness Reference Limit=0.03-0.11 ng/mL AMI Confirmation=0.12 ng/mL and above Pearl Wakefield [facility] LAB BLOOD ORDERABLES Amy l Result Performing Organization Address City/[facility] Co de Phone Number [facility]
[address] [place] [address], * XR Chest 2 View (05/10/2017 1:58 PM EDT) Anatomical Region Laterality Modality Body N/A Radiographic Kim ging 05/10/2017 2:23 PM EDT Impressions 05/10/2017 2:34 PM EDT No acute cardiopulmonary process. Images were reviewed, interpreted, and dictated by Dr. Morel. Transcribed by Dang Love PA-C. This report was finalized on 05/10/2017 2:34 PM by Bubba Morel DO. Narrative 05/10/2017 2:34 PM EDT PROCEDURE: XR CHEST 2 VW- ?? HISTORY: shortness of breath COMPARISON: None. FINDINGS: The heart is normal in size. The mediastinum is unremarkable. The lungs are clear. There is no pneumothorax. There are no acute osseous abnormalities. ? Procedure Note Dnag Love PA-C - 05/10/2017 PROCEDURE: XR CHEST 2 VW- HISTORY: shortness of breath COMPARISON: None. FINDINGS: The heart is normal in size. The mediastinum is unremarkable. The lungs are clear. There is no pneumothorax. There are no acute osseous abnormalities. IMPRESSION: No acute cardiopulmonary process. Images were reviewed, interpreted, and dictated by Dr. Morel. Transcribed by Dang Love PA-C. This report was finalized on 05/10/2017 2:34 PM by Bubba Morel DO. Pearl Wakefield APRN IMG DIAGNOSTIC IMAGING OR DERABLES Final Result * (ABNORMAL) Urinalysis, Microscopic Only - Urine, Clean Catch (05/10/2017 1:49 PM EDT) RBC, UA 0-2(A) None Seen /HPF 05/10/2017 2:10 PM EDT [facility] WBC, UA 0-2(A) None Seen /HPF 05/10/2017 2:10 PM EDT [facility] Bacteria, UA Trace(A) None Seen /HPF 05/10/2017 2:10 PM EDT [facility] Squamous Epithelial Cells, UA 0-2 None Seen, 0-2 /HPF 05/10/2017 2:10 PM EDT [facility] Hyaline Casts, UA None Seen None Seen /LPF 05/10/2017 2:10 PM EDT [facility] Methodology Manual Light Microscopy 05/10/2017 2:10 PM EDT [facility] Urine Urine specimen collection, clean catch / Unknown Collection / Unknown 05/10/2017 1:49 PM EDT 05/10/2017 1:53 PM EDT Pearl Wakefield PLATER [facility] URINE ORDERABLES Final Re sult [facility]
[address] [place] [address], [place] [phone] * (ABNORMAL) CBC Auto Differential (05/10/2017 1:49 PM EDT) WBC 8.97 4.80 - 10.80 10*3/mm3 05/10/2017 1:57 PM EDT [facility] RBC 4.32 4.20 - 5.40 10*6/mm3 05/10/2017 1:57 PM EDT [facility] Hemoglobin 12.7 12.0 - 16.0 g/dL 05/10/2017 1:57 PM EDT [facility] Hematocrit 36.6(L) 37.0 - 47.0 % 05/10/2017 1:57 PM EDT [facility] MCV 84.7 81.0 - 99.0 fL 05/10/2017 1:57 PM EDT [facility] MCH 29.4 27.0 - 31.0 pg 05/10/2017 1:57 PM EDT [facility] MCHC 34.7 30.0 - 37.0 g/dL 05/10/2017 1:57 PM EDT [facility] RDW 11.4(L) 11.5 - 14.5 % 05/10/2017 1:57 PM EDT [facility] RDW-SD 35.2(L) 37.0 - 54.0 fl 05/10/2017 1:57 PM EDT [facility] MPV 13.5(H) 6.0 - 12.0 fL 05/10/2017 1:57 PM EDT [facility] Platelets 201 130 - 400 10*3/mm3 05/10/2017 1:57 PM EDT [facility] Neutrophil % 54.2 37.0 - 80.0 % 05/10/2017 1:57 PM EDT [facility] Lymphocyte % 37.5 10.0 - 50.0 % 05/10/2017 1:57 PM EDT [facility] Monocyte % 4.5 0.0 - 12.0 % 05/10/2017 1:57 PM EDT [facility] Eosinophil % 3.1 0.0 - 7.0 % 05/10/2017 1:57 PM EDT [facility] Basophil % 0.3 0.0 - 2.5 % 05/10/2017 1:57 PM EDT [facility] Immature Grans % 0.4 0.0 - 0.6 % 05/10/2017 1:57 PM EDT [facility] Neutrophils, Absolute 4.86 2.00 - 6.90 10*3/mm3 05/10/2017 1:57 PM EDT [facility] Lymphocytes, Absolute 3.36 0.60 - 3.40 10*3/mm3 05/10/2017 1:57 PM EDT [facility] Monocytes, Absolute 0.40 0.00 - 0.90 10*3/mm3 05/10/2017 1:57 PM EDT [facility] Eosinophils, Absolute 0.28 0.00 - 0.70 10*3/mm3 05/10/2017 1:57 PM EDT [facility] Basophils, Absolute 0.03 0.00 - 0.20 10*3/mm3 05/10/2017 1:57 PM EDT [facility] Immature Grans, Absolute 0.04 0.00 - 0.06 10*3/mm3 05/10/2017 1:57 PM EDT [facility] nRBC 0.0 0.0 - 0.0 /100 WBC 05/10/2017 1:57 PM EDT [facility] Blood Venipuncture / Unknown 05/10/2017 1:49 PM EDT 05/10/2017 1:53 PM EDT us Pearl Wakefield [facility] LAB BLOOD ORDERABLES Amy foreman Result [facility]
[address] [place] [address], [place] [phone] * Troponin (05/10/2017 1:49 PM EDT) Troponin I <0.012 0.000 - 0.034 ng/mL 05/10/2017 2:24 PM EDT [facility] Blood Venipuncture / Unknown 05/10/2017 1:49 PM EDT 05/10/2017 1:53 PM EDT [facility] - 05/10/2017 2:24 PM EDT Normal Patient Upper Reference Limit (URL) (99th Percentile)=0.03 ng/mL Non-AMI Illness Reference Limit=0.03-0.11 ng/mL AMI Confirmation=0.12 ng/mL and above Pearl Yanezhead [facility] LAB BLOOD ORDERABLES Amy l Result Performing Organization Address City/[facility]/ZIP Co de Phone Number [facility]
[address] [place] [address], [place] [phone] * D-dimer, Quantitative (05/10/2017 1:49 PM EDT) Pathologist [facility] D-Dimer, Quantitative 270 0 - 500 ng/mL (FEU) 05/10/2017 2:36 PM EDT [facility] Blood Venipuncture / Unknown 05/10/2017 1:49 PM EDT 05/10/2017 1:53 PM EDT Pearl Foreman Wakefield [facility] LAB BLOOD ORDERABLES Amy l Result [facility]
[address] [place] [address], [place] [phone] * (ABNORMAL) Urinalysis With / Culture If Indicated - Urine, Clean Catch (05/10/2017 1:49 PM EDT) Color, UA Yellow Yellow, Straw 05/10/2017 1:58 PM EDT [facility] Appearance, UA Clear Clear 05/10/2017 1:58 PM EDT [facility] pH, UA 5.5 5.0 - 8.0 05/10/2017 1:58 PM EDT [facility] Specific [place], UA 1.015 1.005 - 1.030 05/10/2017 1:58 PM EDT [facility] Glucose, UA 500 mg/dL (2+)(A) Negative 05/10/2017 1:58 PM EDT [facility] Ketones, UA Negative Negative 05/10/2017 1:58 PM EDT [facility] Bilirubin, UA Negative Negative 05/10/2017 1:58 PM EDT [facility] Blood, UA Small (1+)(A) Negative 05/10/2017 1:58 PM EDT [facility] Protein, UA >=300 mg/dL (3+)(A) Negative 05/10/2017 1:58 PM EDT [facility] Leuk Esterase, UA Negative Negative 05/10/2017 1:58 PM EDT [facility] Nitrite, UA Negative Negative 05/10/2017 1:58 PM EDT [facility] Urobilinogen, UA 0.2 E.U./dL 0.2 - 1.0 E.U./dL 05/10/2017 1:58 PM EDT [facility] Urine Urine specimen collection, clean catch / Unknown Collection / Unknown 05/10/2017 1:49 PM EDT 05/10/2017 1:53 PM EDT us Pearl Wakefield [employer] URINE ORDERABLES Final Re sult [facility]
[address] [place] [address], [place] [phone] * Lipase (05/10/2017 1:49 PM EDT) Lipase 108 23 - 300 U/L 05/10/2017 2:24 PM EDT [facility] Blood Venipuncture / Unknown 05/10/2017 1:49 PM EDT 05/10/2017 1:53 PM EDT us Pearl Wakefield [facility] LAB BLOOD ORDERABLES Amy kellen Result [facility]
[address] [place] [address], * (ABNORMAL) Comprehensive Metabolic Panel (05/10/2017 1:49 PM EDT) Glucose 518(HH) 74 - 98 mg/dL 05/10/2017 2:37 PM EDT [facility] BUN 22(H) 7 - 20 mg/dL 05/10/2017 2:37 PM EDT [facility] Creatinine 1.40(H) 0.60 - 1.30 mg/dL 05/10/2017 2:37 PM EDT [facility] Sodium 133(L) 137 - 145 mmol/L 05/10/2017 2:37 PM EDT [facility] Potassium 4.8 3.5 - 5.1 mmol/L 05/10/2017 2:37 PM EDT [facility] Chloride 103 98 - 107 mmol/L 05/10/2017 2:37 PM EDT [facility] CO2 17.0(L) 26.0 - 30.0 mmol/L 05/10/2017 2:37 PM EDT [facility] Calcium 9.3 8.4 - 10.2 mg/dL 05/10/2017 2:37 PM EDT [facility] Total Protein 6.9 6.3 - 8.2 g/dL 05/10/2017 2:37 PM EDT [facility] Albumin 3.80 3.50 - 5.00 g/dL 05/10/2017 2:37 PM EDT [facility] ALT (SGPT) 27 13 - 69 U/L 05/10/2017 2:37 PM EDT [facility] AST (SGOT) 13(L) 15 - 46 U/L 05/10/2017 2:37 PM EDT [facility] Alkaline Phosphatase 94 38 - 126 U/L 05/10/2017 2:37 PM EDT [facility] Total Bilirubin 0.3 0.2 - 1.3 mg/dL 05/10/2017 2:37 PM EDT [facility] eGFR Non Amer 45(L) >60 mL/min/1.7 3 05/10/2017 2:37 PM EDT [facility] Globulin 3.1 gm/dL 05/10/2017 2:37 PM EDT [facility] A/G Ratio 1.2 1.0 - 2.0 g/dL 05/10/2017 2:37 PM EDT [facility] BUN/Creatinine Ratio 15.7 7.1 - 23.5 05/10/2017 2:37 PM EDT [facility] Anion Gap 17.8 mmol/L 05/10/2017 2:37 PM EDT [facility] Blood Venipuncture / Unknown 05/10/2017 1:49 PM EDT 05/10/2017 1:53 PM EDT [facility] - 05/10/2017 2:37 PM EDT Abnormal estimated GFR should be followed by more specific studies to confirm end stage chronic renal disease. The equation used for calculation may not be accurate for patients less than 19 years old, greater than 70 years old, patients at extremes of weight, malnutrition, or with acute renal dysfunction. us Pearl Wakefield [facility] LAB BLOOD ORDERABLES Amy foreman Result [facility]
[address] [place] [id number], * (ABNORMAL) Blood Gas, Arterial With Co-Ox (05/10/2017 1:29 PM EDT) Site Arterial Line 05/10/2017 1:29 PM EDT [facility] THERAPY Kamari's Test Positive 05/10/2017 1:29 PM EDT [facility] THERAPY pH, Arterial 7.356 7.300 - 7.500 pH units 05/10/2017 1:29 PM EDT [facility] THERAPY pCO2, Arterial 36.3 35.0 - 45.0 mm Hg 05/10/2017 1:29 PM EDT [facility] THERAPY pO2, Arterial 28.4(LL) 75.0 - 100.0 mm Hg 05/10/2017 1:29 PM EDT [facility] THERAPY HCO3, Arterial 20.3(L) 22.0 - 28.0 mmol/L 05/10/2017 1:29 PM EDT [facility] THERAPY Base Excess, Arterial -5.2 mmol/L 05/10/2017 1:29 PM EDT [facility] THERAPY O2 Saturation, Arterial 54.5 % 05/10/2017 1:29 PM EDT [facility] THERAPY Hemoglobin, Blood Gas 13.0 12 - 18 g/dL 05/10/2017 1:29 PM EDT [facility] THERAPY Oxyhemoglobin 52.6(L) 94 - 99 % 05/10/2017 1:29 PM EDT [facility] THERAPY Methemoglobin 0.80 % 05/10/2017 1:29 PM EDT [facility] THERAPY Carboxyhemoglobin 2.6 % 017 1:29 PM EDT [facility] THERAPY Modality Room Air 05/10/2017 1:29 PM EDT [facility] THERAPY FIO2 21 % 05/10/2017 1:29 PM EDT [facility] THERAPY Arterial Blood 05/10/2017 1: 29 PM EDT 05/10/2017 1:27 PM EDT Tatum James MD LAB BLOOD ORDERABLES F inal Result [facility] THERAPY
[address] [place], [place] [address] documented in this encounter Visit Diagnoses Diagnosis Hyperglycemia- Primary Other abnormal glucose Noncompliance with medication regimen Personal history of noncompliance with medical treatment, presenting hazards to health Chest pain, unspecified type documented in this encounter Administered Medications Inactive Administered Medications - up to 3 most recent administrations Medication Order MAR Action Action Date Dose Rate Site acetaminophen (TYLENOL) tablet 650 mg 650 mg, Oral, Once, On Tue05/10/17 at 1549, For 1 dose, Do not exceed 4 grams of acetaminophen in a 24 hr period. If given for pain, use the following pain scale: Mild Pain = Pain Score of 1-3, CPOT 1-2 Moderate Pain = Pain Score of 4-6, CPOT 3-4 Severe Pain = Pain Score of 7-10, CPOT 5-8 Given 05/10/2017 4:13 PM EDT 650 mg insulin regular (humuLIN R,novoLIN R) injection 8 Units 8 Units, Subcutaneous, Once, On Tue05/10/17 at 1549, For 1 dose, {BKC} Given 05/10/2017 4:12 PM EDT 8 Units Left Arm sodium chloride 0.9 % bolus 1,000 mL 1,000 mL, Intravenous, Once, On Tue05/10/17 at 1311, For 1 dose New Bag 05/10/2017 2:04 PM EDT 1,000 mL sodium chloride 0.9 % bolus 1,000 mL 1,000 mL, Intravenous, Once, On Tue05/10/17 at 1613, For 1 dose New Bag 05/10/2017 4:18 PM EDT 1,000 mL sodium chloride 0.9 % flush 10 mL 10 mL, Intravenous, As Needed, Line Care, Starting on Tue05/10/17 at 1306 documented in this encounter Active and Recently Administered Medications Times are shown in EDT. Scheduled Medication Order 05/08/2017 05/09/2017 05/10/2017 acetaminophen (TYLENOL) tablet 650 mg (COMPLETED) 650 mg, Oral, Once, On Tue05/10/17 at 1549, For 1 dose, Do not exceed 4 grams of acetaminophen in a 24 hr period. If given for pain, use the following pain scale: Mild Pain = Pain Score of 1-3, CPOT 1-2 Moderate Pain = Pain Score of 4-6, CPOT 3-4 Severe Pain = Pain Score of 7-10, CPOT 5-8 1613 (Given - Provid er: Shaunna Grant RN) insulin regular (humuLIN R,novoLIN R) injection 8 Units (COMPLETED) 8 Units, Subcutaneous, Once, On Tue05/10/17 at 1549, For 1 dose, {BKC} 1612 (Given - Provid er: Shaunna Grant RN) sodium chloride 0.9 % bolus 1,000 mL (COMPLETED) 1,000 mL, Intravenous, Once, On e 05/10/17 at 1311, For 1 dose 1404 (New Bag - Prov ider: Shaunna Grant, HERNÁN)1535 (Stopped - Provider: Shaunna Grant RN) sodium chloride 0.9 % bolus 1,000 mL (COMPLETED) 1,000 mL, Intravenous, Once, On e 05/10/17 at 1613, For 1 dose 1618 (New Bag - Prov ider: Shaunna Grant RN)1853 (Stopped - Provider: Shaunna Grant RN) PRN Medication Order 05/08/2017 05/09/2017 05/10/2017 sodium chloride 0.9 % flush 10 mL(Linked Group 1) 10 mL, Intravenous, As Needed, Line Care, Starting on Tue05/10/17 at 1306 Linked Groups Order Group 1: Insert peripheral IV (CANCELED) Once, On Tue05/10/17 at 1307, For 1 occurrence And sodium chloride 0.9 % flush 10 mLJump to med 10 mL, Intravenous, As Needed, Line Care, Starting on Tue05/10/17 at 1306 documented in this encounter Care Teams Grades 1 Thru 6 Home Teacher Relationship Specialty Start Date End Date Jaquan Conley MD [address] [place] [id number] PCP - General 01/25/17 09/21/17 documented as of this encounter
--- OUTSIDE RECORDS SUMMARY | 2024-05-30 08:38 | XMS_ITS | Encounter Summary ---
Author Organization [facility] Address [address] [place] [address] Care Team Providers Care Microsoft Bi Consultant Name Role Phone Lauren Slade ANJU Primary Care Provider [phone] Reason for Visit * Reason Comments Hyperglycemia Encounter Details Date Type Department Care Team (Late st Contact Info) Description 09/22/2017 1:43 PM EST - 09/22/2017 5:43 PM EST Emergency [facility] [address] [place] [phone] Krissy Bowman MD Hyperglycemia (Primary Dx); Type 2 diabetes mellitus without complication, without long-term current use of insulin; Hypertension, unspecified type Discharge Disposition: Home or Self [...] Sign Reading Time Taken Comments Blood Pressure 103/78 09/22/2017 5:26 PM EST Pulse 92 09/22/2017 5:26 PM EST Temperature 36.5 ??C (97.7 ??F) 09/22/2017 5:26 PM ES T Respiratory Rate 18 09/22/2017 5:26 PM EST Oxygen Saturation 99% 09/22/2017 5:26 PM EST Inhaled Oxygen Concentration - - Weight 84.4 kg (186 lb) 09/22/2017 1:40 PM EST Height 165.1 cm (5' 5 ) 09/22/2017 1:40 PM EST Body Mass Index 30.95 09/22/2017 1:40 PM EST documented in this encounter Discharge Instructions * Discharge Instructions* Krissy Bowman MD - 09/22/2017 5:40 PM EST Please take your hypertension medications every day as prescribed. Please start taking the metformin 500 mg 2 times daily. Please start using your Humalog 75/20/5/40 units 2 times a day. Please checkyour blood sugar multiple times a day and keep a journal to learn trends of your blood sugar. Please follow with your primary care physician in the next few days. * Attachments The following attachments cannot be sent through Care Everywhere. * HYPERGLYCEMIA (ZAMBIAN) * HYPERTENSION (ZAMBIAN) * TYPE 2 DIABETES MELLITUS SELF CARE ADULT (ZAMBIAN) documented in this encounter Medications at Time [...] as of this encounter ED Notes * Rica Shane - 09/22/2017 4:17 PM EST Yenifer Patel RN notified of patient glucose of 404. Rica Shane 09/22/17 1617 * Krissy Bowman MD - 09/22/2017 2:13 PM EST TRIAGE CHIEF COMPLAINT: Nursing and triage notes reviewed Chief Complaint Patient presents with ??? Hyperglycemia HPI: Crystal Archer is a 27 y.o. female who presents to the emergency department complaining of Hyperglycemia. Patient has a history of diabetes mellitus. Patient states she's been told in the past she has type I and also type II she states most recently she told she was a type II diabetic. She states typically her blood sugar runs close to 500. She states she does not feel any different than usual. She states she had some medications adjusted recently by her tank assembler but states there wassome miscommunication and so has not taken any of these medications. She denies any lightheadednessor dizziness. She denies chest pain, abdominal pain, shortness of breath, nausea, vomiting, or diarrhea. REVIEW OF SYSTEMS: All other systems reviewed and are negative PAST MEDICAL HISTORY: Past 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: Diagnosis Date ??? Allergic ??? Anxiety ??? Arthritis ??? Chronic constipation ??? Depression ??? Diabetes mellitus ??? Headache ??? Hyperlipidemia ??? Hypertension ??? Injury of back ??? Sinusitis ??? Urinary tract infection FAMILY HISTORY: History reviewed. No pertinent family history. SOCIAL HISTORY: Social History Social History ??? Marital status: Spouse name: N/A ??? Number of children: N/A ??? Years of education: N/A Occupational History ??? Not on file. Social History Main Topics ??? Smoking status: Current Some Day Smoker Packs/day: 2.00 Years: 10.00 Types: Cigarettes ??? Smokeless tobacco: Not on file ??? Alcohol use Yes ??? Drug use: No ??? Sexual activity: Not on file Other Topics Concern ??? Not on file Social History Narrative ??? No narrative on file SURGICAL HISTORY: Past Surgical History: Procedure Laterality Date ??? SECTION CURRENT MEDICATIONS: Medication List ASK your doctor about these medications amLODIPine 10 MG tablet Commonly known as: NORVASC amoxicillin 500 MG capsule Commonly known as: AMOXIL aspirin 81 MG chewable tablet atorvastatin 10 MG tablet Commonly known as: LIPITOR CLARITIN 10 MG tablet Generic drug: loratadine cyclobenzaprine 5 MG tablet Commonly known as: FLEXERIL DULoxetine 60 MG capsule Commonly known as: CYMBALTA fenofibrate 145 MG tablet Commonly known as: TRICOR insulin lispro 100 UNIT/ML injection Commonly known as: humaLOG lisinopril 20 MG tablet Commonly known as: PRINIVIL,ZESTRIL ALLERGIES: Review of patient's allergies indicates no known allergies. PHYSICAL EXAM: VITAL SIGNS: Vitals: 09/22/17 1340 BP: (!) 161/116 Pulse: (!) 132 Resp: 16 Temp: 97.2 ??F (36.2 ??C) SpO2: 100% CONSTITUTIONAL: Awake, oriented, appears non-toxic HENT: Atraumatic, normocephalic, oral mucosa pink and moist, airway patent. EYES: Conjunctiva clear NECK: Trachea midline, non-tender, supple CARDIOVASCULAR: Tachycardic with a regular rhythm, No murmurs, rubs, gallops PULMONARY/CHEST: Clear to auscultation, no rhonchi, wheezes, or rales. Symmetrical breath sounds. ABDOMINAL: Non-distended, soft, non-tender - no rebound or guarding. NEUROLOGIC: Non-focal, moving all four extremities, no gross sensory or motor deficits. EXTREMITIES: No clubbing, cyanosis, or edema SKIN: Warm, Dry, No erythema, No rash ED COURSE / MEDICAL DECISION MAKING: Crystal Archer is a 27 y.o. female who presents to the emergency department for evaluation of hyperglycemia. Patient is tachycardic and hypertensive on arrival in the emergency department. Patient otherwise is asymptomatic. Patient has a blood sugar reading of simply high on arrival in the emergencydepartment. We'll obtain some laboratory tests to ensure patient is not in DKA. We'll treat with IVfluids and insulin. Laboratory testing did reveal a significantly elevated blood glucose at over 600. Patient's creatinine is 1.7 which is similar to patient's outpatient labs recently at the [facility]. He was able to obtain old records reveals similar laboratory tests. It also indicated which medications patient should be taking. Agents other labs were largely unremarkable. Her blood gas did not reveal any acidosis. Patient had no ketones in her urine. I think DKA is unlikely at this point. Patient given IV fluids and insulin with improvement in her blood sugar. Also give patient some blood pressure medication which patient admitted to not taking very frequently. According to outside records patient should be taking metformin 500 mg twice a day as well as Humalog 75/25 40 units twice a day. Patient admitted to not taking this. I had a long conversation with patient regarding medication compliance and potential complications from these diseases. Patient expressed understanding and stated she would try to take her medication more regularly. I told her to follow back withher primary care physician in a few days to see how her blood sugar is progressing. DECISION TO DISCHARGE/ADMIT: see ED care timeline FINAL IMPRESSION: 1 -- diabetes, hyperglycemia 2 -- hypertension 3 -- medication noncompliance Electronically signed by: Krissy Bowman MD, 09/22/2017 2:13 PM Krissy Bowman MD 09/22/17 6034 documented in this encounter Plan of Treatment Not on file documented as of this encounter Procedures Procedure Name Priority Date/Time Associated Diagnosis Comments POCT GLUCOSE FINGERSTICK STAT 09/22/2017 5:10 PM EST POCT GLUCOSE FINGERSTICK STAT 09/22/2017 4:15 PM EST POCT GLUCOSE FINGERSTICK STAT 09/22/2017 3:13 PM EST GOLD TOP - SST STAT 09/22/2017 2:11 PM EST CBC WITH AUTO DIFFERENTIAL STAT 09/22/2017 2:11 PM EST LAVENDER TOP STAT 09/22/2017 2:11 PM EST LIGHT GREEN TOP STAT 09/22/2017 2:11 PM EST LIGHT BLUE TOP STAT 09/22/2017 2:11 PM EST RAINBOW DRAW STAT 09/22/2017 2:11 PM EST CBC AND DIFFERENTIAL STAT 09/22/2017 2:11 PM EST COMPREHENSIVE METABOLIC PANEL STAT 09/22/2017 2:11 PM EST URINALYSIS, MICROSCOPIC ONLY STAT 09/22/2017 2:04 PM EST URINALYSIS W/ CULTURE IF INDICATED STAT 09/22/2017 2:04 PM EST URINE CULTURE STAT 09/22/2017 2:04 PM EST POCT GLUCOSE FINGERSTICK STAT 09/22/2017 2:03 PM EST documented in this encounter Results * (ABNORMAL) POC Glucose Once (09/22/2017 5:10 PM EST) Glucose 308(H) 70 - 130 mg/dL 09/22/2017 5:15 PM EST [facility] Comment:Serial Number: [id number]: [id number] Blood 09/22/2017 5:10 PM EST 09/22/2017 5:15 PM EST Krissy Bowman MD POINT OF CARE TEST ORDE TORITO Final Result Performing Organization Address City/[facility]/ZIP Co de Phone Number [facility]
[address] [place] [address], * (ABNORMAL) POC Glucose Once (09/22/2017 4:15 PM EST) Glucose 404(H) 70 - 130 mg/dL 09/22/2017 5:15 PM EST [facility] Comment:Serial Number: [id number]: [id number] Blood 09/22/2017 4:15 PM EST 09/22/2017 5:15 PM EST Krissy Bowman MD POINT OF CARE TEST ORDE TORITO Final Result Performing Organization Address [facility] Co de Phone Number [facility]
[address] [place] [address], * (ABNORMAL) POC Glucose Once (09/22/2017 3:13 PM EST) Glucose 532(HH) 70 - 130 mg/dL 09/22/2017 3:20 PM EST [facility] Comment:Serial Number: [id number]: [id number] Blood 09/22/2017 3:13 PM EST 09/22/2017 3:20 PM EST Krissy Bowman MD POINT OF CARE TEST ORDBrien UGARTE Final Result Performing Organization Address City/[facility]/ZIP Co de Phone Number [facility]
[address] [phone], * (ABNORMAL) CBC Auto Differential (09/22/2017 2:11 PM EST) [facility] WBC 9.75 4.80 - 10.80 10*3/mm3 09/22/2017 2:43 PM [facility] RBC 4.27 4.20 - 5.40 10*6/mm3 09/22/2017 2:43 PM [facility] Hemoglobin 12.5 12.0 - 16.0 g/dL 09/22/2017 2:43 PM [facility] Hematocrit 37.3 37.0 - 47.0 % 09/22/2017 2:43 PM [facility] MCV 87.4 81.0 - 99.0 fL 09/22/2017 2:43 PM [facility] MCH 29.3 27.0 - 31.0 pg 09/22/2017 2:43 PM [facility] MCHC 33.5 30.0 - 37.0 g/dL 09/22/2017 2:43 PM [facility] RDW 12.2 11.5 - 14.5 % 09/22/2017 2:43 PM [facility] RDW-SD 39.2 37.0 - 54.0 fl 09/22/2017 2:43 PM [facility] MPV 12.8(H) 6.0 - 12.0 fL 09/22/2017 2:43 PM [facility] Platelets 248 130 - 400 10*3/mm3 09/22/2017 2:43 PM [facility] Neutrophil % 65.1 37.0 - 80.0 % 09/22/2017 2:43 PM [facility] Lymphocyte % 26.9 10.0 - 50.0 % 09/22/2017 2:43 PM [facility] Monocyte % 4.1 0.0 - 12.0 % 09/22/2017 2:43 PM [facility] Eosinophil % 2.4 0.0 - 7.0 % 09/22/2017 2:43 PM [facility] Basophil % 0.5 0.0 - 2.5 % 09/22/2017 2:43 PM EST [facility] Immature Grans % 1.0(H) 0.0 - 0.6 % 09/22/2017 2:43 PM EST [facility] Neutrophils, Absolute 6.35 2.00 - 6.90 10*3/mm3 09/22/2017 2:43 PM EST [facility] Lymphocytes, Absolute 2.62 0.60 - 3.40 10*3/mm3 09/22/2017 2:43 PM EST [facility] Monocytes, Absolute 0.40 0.00 - 0.90 10*3/mm3 09/22/2017 2:43 PM EST [facility] Eosinophils, Absolute 0.23 0.00 - 0.70 10*3/mm3 09/22/2017 2:43 PM [facility] Basophils, Absolute 0.05 0.00 - 0.20 10*3/mm3 09/22/2017 2:43 PM EST [facility] Immature Grans, Absolute 0.10(H) 0.00 - 0.06 10*3/mm3 09/22/2017 2:43 PM [facility] nRBC 0.0 0.0 - 0.0 /100 WBC 09/22/2017 2:43 PM [facility] Blood Venipuncture / Unknown 09/22/2017 2:11 PM EST 09/22/2017 2:18 PM EST Krissy Bowman MD LAB BLOOD ORDERABLES Fi nal Result [facility]
[address] [place] [address], [place] [phone] * (ABNORMAL) Comprehensive Metabolic Panel (09/22/2017 2:11 PM EST) Glucose 679(HH) 74 - 98 mg/dL 09/22/2017 2:55 PM EST [facility] Comment:Glucose >180, Hemogl obin A1C recommended. BUN 27(H) 7 - 20 mg/dL 09/22/2017 2:55 PM EST [facility] Creatinine 1.70(H) 0.60 - 1.30 mg/dL 09/22/2017 2:55 PM [facility] Sodium 132(L) 137 - 145 mmol/L 09/22/2017 2:55 PM [facility] Potassium 5.0 3.5 - 5.1 mmol/L 09/22/2017 2:55 PM [facility] Chloride 97(L) 98 - 107 mmol/L 09/22/2017 2:55 PM [facility] CO2 20.0(L) 26.0 - 30.0 mmol/L 09/22/2017 2:55 PM [facility] Calcium 8.9 8.4 - 10.2 mg/dL 09/22/2017 2:55 PM [facility] Total Protein 7.1 6.3 - 8.2 g/dL 09/22/2017 2:55 PM [facility] Albumin 3.80 3.50 - 5.00 g/dL 09/22/2017 2:55 PM [facility] ALT (SGPT) 27 13 - 69 U/L 09/22/2017 2:55 PM [facility] AST (SGOT) 11(L) 15 - 46 U/L 09/22/2017 2:55 PM [facility] Alkaline Phosphatase 129(H) 38 - 126 U/L 09/22/2017 2:55 PM [facility] Total Bilirubin 0.4 0.2 - 1.3 mg/dL 09/22/2017 2:55 PM [facility] eGFR Non Amer 36(L) >60 mL/min/1.7 3 09/22/2017 2:55 PM [facility] Globulin 3.3 gm/dL 09/22/2017 2:55 PM [facility] A/G Ratio 1.2 1.0 - 2.0 g/dL 09/22/2017 2:55 PM [facility] BUN/Creatinine Ratio 15.9 7.1 - 23.5 09/22/2017 2:55 PM [facility] Anion Gap 20.0 mmol/L 09/22/2017 2:55 PM EST [facility] Blood Venipuncture / Unknown 09/22/2017 2:11 PM EST 09/22/2017 2:18 PM EST us Krissy Bowman MD LAB BLOOD ORDERABLES Fi nal Result Performing Organization Address City/[facility]/ZIP Co de Phone Number [facility]
[address] [place] [address], * Green Top (No Gel) (09/22/2017 2:11 PM EST) Extra Tube Hold for add-ons. 09/22/2017 3:16 PM EST [facility] Comment:Auto resulted. Blood Venipuncture / Unknown 09/22/2017 2:11 PM EST 09/22/2017 2:18 PM EST Krissy Bowman MD LAB BLOOD ORDER ONLY Fi nal Result Performing Organization Address [facility] Co de Phone Number [facility]
[address] [place] [address], [place] [phone] * Gold Top - SST (09/22/2017 2:11 PM EST) Extra Tube Hold for add-ons. 09/22/2017 3:16 PM EST [facility] Comment:Auto resulted. Blood Venipuncture / Unknown 09/22/2017 2:11 PM EST 09/22/2017 2:18 PM EST Krissy Bowman MD LAB BLOOD ORDER ONLY Fi nal Result Performing Organization Address City/[facility] Co de Phone Number [facility]
[address] [place] [address], [place] [phone] * Lavender Top (09/22/2017 2:11 PM EST) Extra Tube hold for add-on 09/22/2017 3:16 PM EST [facility] Comment:Auto resulted Blood Venipuncture / Unknown 09/22/2017 2:11 PM EST 09/22/2017 2:18 PM EST us Krissy Bowman MD LAB BLOOD ORDER ONLY Fi nal Result Performing Organization Address [facility] Co de Phone Number [facility]
[address] [place] [address], * Light Blue Top (09/22/2017 2:11 PM EST) Extra Tube hold for add-on 09/22/2017 3:16 PM EST [facility] Comment:Auto resulted Blood Venipuncture / Unknown 09/22/2017 2:11 PM EST 09/22/2017 2:18 PM EST us Krissy Bowman MD LAB BLOOD ORDER ONLY Fi nal Result Performing Organization Address [facility] Co de Phone Number [facility]
[address] [place] [address], [place] [phone] * Urine Culture - Urine, Urine, Clean Catch (09/22/2017 2:04 PM EST) Pathologist [facility] Urine Culture No growth KIRA 09/24/2017 6:14 AM EST [facility] Urine Urine specimen collection, clean catch / Unknown Collection / Unknown 09/22/2017 2:04 PM EST 09/22/2017 2:07 PM EST us Krissy Bowman MD MICROBIOLOGY - GENERAL ORDERABLES Final Result Performing Organization Address [facility] de Phone Number [facility]
[address] [place] [address], [place] [phone] * (ABNORMAL) Urinalysis, Microscopic Only - Urine, Clean Catch (09/22/2017 2:04 PM EST) RBC, UA 0-2(A) None Seen /HPF 09/22/2017 2:43 PM [facility] WBC, UA 0-2(A) None Seen /HPF 09/22/2017 2:43 PM [facility] Bacteria, UA Trace(A) None Seen /HPF 09/22/2017 2:43 PM EST [facility] Squamous Epithelial Cells, UA 3-6(A) None Seen, 0-2 /HPF 09/22/2017 2:43 PM EST [facility] Yeast, UA Small/1+ Budding Yeast None Seen /HPF 09/22/2017 2:43 PM [facility] Hyaline Casts, UA None Seen None Seen /LPF 09/22/2017 2:43 PM [facility] Methodology Manual Light Microscopy 09/22/2017 2:43 PM [facility] Urine Urine specimen collection, clean catch / Unknown Collection / Unknown 09/22/2017 2:04 PM EST 09/22/2017 2:07 PM EST [facility] Mickey Bowman MD URINE ORDERABLES Final Result [facility]
[address] [place] [address], * (ABNORMAL) Urinalysis With / Culture If Indicated - Urine, Clean Catch (09/22/2017 2:04 PM EST) Color, UA Yellow Yellow, Straw 09/22/2017 2:43 PM [facility] Appearance, UA Clear Clear 09/22/2017 2:43 PM [facility] pH, UA 6.0 5.0 - 8.0 09/22/2017 2:43 PM [facility] Specific [place], UA 1.020 1.005 - 1.030 09/22/2017 2:43 PM [facility] Glucose, UA 500 mg/dL (2+)(A) Negative 09/22/2017 2:43 PM [facility] Ketones, UA Negative Negative 09/22/2017 2:43 PM [facility] Bilirubin, UA Negative Negative 09/22/2017 2:43 PM EST [facility] Blood, UA Trace(A) Negative 09/22/2017 2:43 PM EST [facility] Protein, UA >=300 mg/dL (3+)(A) Negative 09/22/2017 2:43 PM EST [facility] Leuk Esterase, UA Negative Negative 09/22/2017 2:43 PM EST [facility] Nitrite, UA Negative Negative 09/22/2017 2:43 PM EST [facility] Urobilinogen, UA 0.2 E.U./dL 0.2 - 1.0 E.U./dL 09/22/2017 2:43 PM EST [facility] Urine Urine specimen collection, clean catch / Unknown Collection / Unknown 09/22/2017 2:04 PM EST 09/22/2017 2:07 PM EST Krissy Bowman MD URINE ORDERABLES Final Result Performing Organization Address City/[facility]/ZIP Co de Phone Number [facility]
[address] [place] [address], [place] [phone] * (ABNORMAL) POC Glucose Once (09/22/2017 2:03 PM EST) Glucose >599(HH) 70 - 130 mg/dL 09/22/2017 2:10 PM EST [facility] Comment:Serial Number: [id number] Blood 09/22/2017 2:03 PM EST 09/22/2017 2:10 PM EST Krissy Bowman MD POINT OF CARE TEST ORDBrien UGARTE Final Result Performing Organization Address City/[facility] Co de Phone Number [facility]
[address] [place] [address], [place] [phone] documented in this encounter Visit Diagnoses Diagnosis Hyperglycemia- Primary Other abnormal glucose Type 2 diabetes mellitus without complication, without long-term current use of insulin Hypertension, unspecified type documented in this encounter Administered Medications Inactive Administered Medications - up to 3 most recent administrations Medication Order MAR Action Action Date Dose Rate Site amLODIPine (NORVASC) tablet 5 mg 5 mg, Oral, Once, On Emma 09/22/17 at 1602, For 1 dose, Avoid grapefruit juice. Given 09/22/2017 4:07 PM EST 5 mg CloNIDine (CATAPRES) tablet 0.1 mg 0.1 mg, Oral, Once, On Emma 09/22/17 at 1602, For 1 dose, Caution: Look alike/sound alike drug alert. Please read the label. Given 09/22/2017 4:07 PM EST 0.1 mg insulin regular (humuLIN R,novoLIN R) injection 10 Units 10 Units, Intravenous, Once, On Emma 09/22/17 at 1417, For 1 dose, {BKC} Given 09/22/2017 2:22 PM EST 10 Units insulin regular (humuLIN R,novoLIN R) injection 10 Units 10 Units, Intravenous, Once, On Emma 09/22/17 at 1524, For 1 dose, {BKC} Given 09/22/2017 3:31 PM EST 10 Units insulin regular (humuLIN R,novoLIN R) injection 5 Units 5 Units, Subcutaneous, Once, On Emma 09/22/17 at 1637, For 1 dose, {BKC} Given 09/22/2017 4:40 PM EST 5 Units Left Arm sodium chloride 0.9 % bolus 2,000 mL 2,000 mL, Intravenous, at 2,000 mL/hr, Administer over 1 Hours, Once, On Emma 09/22/17 at 1413, For 1 dose New Bag 09/22/2017 2:22 PM EST 2,000 mL 2000 mL/hr sodium chloride 0.9 % flush 10 mL 10 mL, Intravenous, As Needed, Line Care, Starting on Emma 09/22/17 at 1411 documented in this encounter Active and Recently Administered Medications Times are shown in EST. Scheduled Medication Order 09/20/2017 09/21/2017 09/22/2017 amLODIPine (NORVASC) tablet 5 mg (COMPLETED) 5 mg, Oral, Once, On Emma 18 at 1602, For 1 dose, Avoid grapefruit juice. 1607 (Given - Provid er: Yenifer Patel RN) CloNIDine (CATAPRES) tablet 0.1 mg (COMPLETED) 0.1 mg, Oral, Once, On Emma 09/22/17 at 1602, For 1 dose, Caution: Look alike/sound alike drug alert. Please read the label. 1607 (Given - Provid er: Yenifer Patel RN) insulin regular (humuLIN R,novoLIN R) injection 10 Units (COMPLETED) 10 Units, Intravenous, Once, On Emma 09/22/17 at 1417, For 1 dose, {BKC} 1422 (Given - Provid er: Yenifer Patel RN) insulin regular (humuLIN R,novoLIN R) injection 10 Units (COMPLETED) 10 Units, Intravenous, Once, On Emma 09/22/17 at 1524, For 1 dose, {BKC} 1531 (Given - Provid er: Yenifer Patel RN) insulin regular (humuLIN R,novoLIN R) injection 5 Units (COMPLETED) 5 Units, Subcutaneous, Once, On Emma 09/22/17 at 1637, For 1 dose, {BKC} 1640 (Given - Provid er: Yenifer Patel RN) sodium chloride 0.9 % bolus 2,000 mL (COMPLETED) 2,000 mL, Intravenous, at 2,000 mL/hr, Administer over 1 Hours, Once, On Emma 09/22/17 at 1413, For 1 dose 1422 (New Bag - Prov ider: Yenifer Patel RN)1720 (Stopped - Provider: Yenifer Patel RN) PRN Medication Order 09/20/2017 09/21/2017 09/22/2017 sodium chloride 0.9 % flush 10 mL 10 mL, Intravenous, As Needed, Line Care, Starting on Emma 09/22/17 at 1411 documented in this encounter Care Teams [employer] Bi Consultant Relationship Specialty Start Date End Date Lauren Slade APRN [address], KEARA [address] [place] [id number] PCP - General Family Medicine 09/22/17 02/05/18 documented as of this encounter
--- OUTSIDE RECORDS SUMMARY | 2024-05-30 08:38 | XMS_ITS | Clinical Summary ---
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 10/11/19 22 Active hydrALAZINE (Apresoline) 25 MG tablet Take 1 tablet (25 mg) by mouth 2 (two) times a day. 08/15/19 22 Active loratadine (Claritin) 10 MG tablet Take 1 tablet (10 mg) by mouth 1 (one) time each day. 10/11/19 22 Active sodium bicarbonate 650 MG tablet Take 2 tablets (1,300 mg) by mouth 2 (two) times a day. 08/14/19 22 Active NIFEdipine CC (Adalat CC) 60 MG 24 hr tablet Take 1 tablet (60 mg) by mouth 1 (one) time each day. 07/23/19 23 Active BD Insulin Syringe U/F 31G X 11/30 0.5 ML miscIndications:Type 1 diabetes mellitus with other specified complication (CMS/HCC) Use as instructed to inject insulin 4+ times daily in event of pump failure 100 each 3 06/20/20 23 Active acetone, urine, test stripIndications:Typ e 2 diabetes mellitus with other specified complication, with long-term current use of insulin (CMS/HCC) 1 strip if needed for high blood sugar (illness, vomiting). Call clinic if positive. 25 each 2 01/27/20 24 Active glucose blood test stripIndications:Typ e 2 diabetes mellitus with other specified complication, with long-term current use of insulin (CMS/HCC) Use as instructed 100 each 11 01/27/20 24 Active pantoprazole (Protonix) 40 MG EC tablet Take 1 tablet (40 mg) by mouth 1 (one) time each day before breakfast. Do not crush, chew, or split. Active Multiple Vitamin (multivitamin) tablet Take 1 tablet by mouth 1 (one) time each day. Active famotidine (Pepcid) 20 MG tablet Take by mouth. Active valGANciclovir (Valcyte) 450 MG tablet Take 1 tablet (450 mg) by mouth 1 (one) time each day. Do not crush or chew. Active mycophenolate (Cellcept) 500 MG tablet Take by mouth 1 (one) time each day. Active tacrolimus 5 MG PO capsule Take 1 mg by mouth 2 (two) times a day. Four 1mg pills 2x daily Active Semaglutide, 1 MG/DOSE, (Ozempic, 1 MG/DOSE,) 4 MG/3ML solution pen-injectorIndicati ons:Type 2 diabetes mellitus with other specified complication, with long-term current use of insulin (CMS/HCC) Inject 1 mg under the skin 1 (one) time per week. 3 mL 5 05/23/20 24 025 Active insulin aspart (NovoLOG) 100 UNIT/ML injection vialIndications:Type 2 diabetes mellitus with other specified complication, with long-term current use of insulin (CMS/HCC) To be used in insulin pump. 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 MDD 75u 70 mL 1 01/27/20 24 024 Discontin ued(Reord er) Semaglutide,0.25 or 0.5MG/DOS, 2 MG/3ML solution pen-injectorIndicati ons:Type 2 diabetes mellitus with other specified complication, with long-term current use of insulin (CMS/HCC) Inject 0.5 mg under the skin 1 (one) time per week. 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 06/16/2018 Type 1 diabetes mellitus with other specified co mplication 06/16/2018 Vitreous hemorrhage of left eye 06/16/2018 Acute renal failure 06/13/2018 Hyperlipidemia 12/30/2015 Depression 12/30/2015 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 Overview (12/21/2021): Left lower leg Restless leg 12/30/2015 Encounters Date Type Department Care Team Description 05/23/2024 11:00 AM EST Office Visit [facility] [address], [address] [place] [address] Erica Ventura PA Type 2 diabetes mellitus with other specified complication, with long-term current use of insulin ([facility]) (Primary Dx); Renal transplant recipient 05/23/2024 Travel 04/03/2024 Telephone [facility] [address], [address] [place] [address] Marilyn Valencia, BUSINESS ATTORNEY from Last 3 Months Immunizations Name Administration Dates Next Due Hep A, Adult 01/29/2019,07/27/2018 Influenza, injectable, quadrivalent 05/17/2019,0 04/06/2018 Influenza, injectable, quadr ivalent, preservative free 04/07/2021,04/22/2020,05/06/2017 Influenza, seasonal, injectable 04/05/2012 Influenza, seasonal, injecta ble, preservative free 04/05/2012 Pneumococcal Polysaccharide PPV23 12/21/2018 Td (adult), 5 Lf tetanus tox oid, preservative free, adsorbed 02/15/2018 Family History 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 Relation Name Comments Diabetes Mother Hyperlipidemia Mother Hypertension Mother Other cancer Mother Stroke Mother Relation Name Status Comments Mother Social History Tobacco Use Types Packs/Day Years Used Date Smoking Tobacco: Former Cigarettes Q uit: 09/2022 Smokeless Tobacco: Never Tobacco Cessation:Counseling Given: Not Answered Alcohol Use Standard Drinks/Week Comments Not Currently 0 (1 standard drink = 0.6 oz pur e alcohol) PHQ-2 Answer Date Recorded Patient Health Questionnaire-2 Score 0 06/20/2023 PHQ-2A Answer Date Recorded Patient Health Questionnaire-2 Score 0 06/20/2023 Comments Unknown Sex and Gender Information Value Date Recorded Sex Assigned at Not on file Legal Sex Female 6:07 PM EDT Gender Identity Not on file Sexual Orientation Not on file Last Filed Vital Signs Vital Sign Reading Time Taken Comments Blood Pressure 100/70 05/23/2024 10:50 AM EST Pulse 85 05/23/2024 10:50 AM EST Temperature 36.8 ??C (98.3 ??F) 11/26/2020 1:00 PM ED T Respiratory Rate - - Oxygen Saturation - - Inhaled Oxygen Concentration - - Weight 71.3 kg (157 lb 3 oz) 05/23/2024 10:50 AM EST Height 165.1 cm (5' 5 ) 05/23/2024 10:50 AM EST Body Mass Index 26.16 05/23/2024 10:50 AM EST Plan of Treatment Upcoming Encounters Date Type Department Care Team (Late st Contact Info) Description 08/28/2024 11:00 AM EST Office Visit [facility] [address] [place] [address] Erica Ventura PA [address] [place] [address] Health Maintenance Due Date Last Done Comments [facility]-HIV Screening 1989 [facility]-Infant/Child/Adol SDOH Screenings 1989 [id number] Vaccine (#1) 1994 Diabetes: Dental Exam 1999 [facility]-Varicella Vaccines (1 of 2 - 13+ 2-dose series) 2002 [facility]- SDOH Screenings 2007 [facility]-Adult SDOH Screenings 2007 [facility]-Hepatitis B Vaccines (1 of 3 - 19+ 3-dose series) 2008 [facility]-Zoster Vaccines (1 of 2) 2008 [facility]-Pap Smear 10/29/2017 10/29/2014 [facility]-Cervical Cancer Screening 2019 [facility]-HPV/Cotest 2019 10/29/2014 [facility]-Pneumococcal Vaccine: Pediatrics (0 to 5 Years) and At-Risk Patients (6 to 64 Years) (2 of 2 - PCV) 12/22/2019 12/21/2018 [facility]-Depression Screening 06/20/2024 06/20/2023 [facility]-Diabetes: Hemoglobin A1C 11/20/2024 05/23/2024, 06/20/2023, 05/19/2023, Additional history exists [facility]-DTaP,Tdap,and Td Vaccines (2 - Td or Tdap) 09/28/2033 09/29/2023, 02/15/2018 [facility]-RSV Vaccine: 60+ Years or (1 - 1-dose 75+ series) 2064 [facility]-Hepatitis A Vaccines Aged Out 01/29/2019, 07/18 No longer eligible based on patient's age to complete this topic [facility]-Hepatitis C Screening Completed 05/19/2023, 12/2019 [facility]-Influenza Vaccine Completed 04/26/2024 , 04/13/2023, 04/07/2021, Additional history exists [facility]-Obesity Intervention Completed 024, 01/27/2024, 06/20/2023, Additional history exists [facility]-HIB Vaccines Aged Out No longer e ligible based on patient's age to complete this topic [facility]-HPV Vaccines Aged Out No longer e ligible based on patient's age to complete this topic [facility]-IPV Vaccines Aged Out No longer e ligible based on patient's age to complete this topic [facility]-Rotavirus Vaccines Aged Out No lo nger eligible based on patient's age to complete this topic Procedures Procedure Name Priority Date/Time Associated Diagnosis Comments POCT GLYCOSYLATED HEMOGLOBIN (HGB A1C) Routine 05/23/2024 11:03 AM EST Type 2 diabetes mellitus with other specified complication, with long-term current use of insulin ([facility]) CYTO DATA CONVERSION Routine 10/29/2014 12:00 AM EDT from Last 3 Months or Most Recently Relevant to Health Maintenance Results * (ABNORMAL) POCT glycosylated hemoglobin (Hb A1C) (05/23/2024 11:03 AM EST) POCT Hemoglobin A1C 5.8 <5.7% Non-Diabe tic % [facility] Kit Lot Number [id number] [email or web address] Kit Expiration Date 03/17/2026 [facility] Blood Venous blood specimen / Unknown 05/23/2024 11:03 AM EST Erica MENDEZ POINT OF CARE TEST EN TER/EDIT ORDERABLES Final Result [facility] [address] [place] [address] * Cytology (10/29/2014 12:00 AM EDT) 10/29/2014 10/31/2014 12: 33 PM EDT Narrative [facility] - 11/06/2014 11:15 AM EDT [facility] ?MR #: [id number] [facility] ?[address] [place], [place] ??[id number] ?1990 (Age: 24) ?? FW ?Collect Date: 10/29/2014 00:00 ?Receipt Date: 10/31/2014 12:33 ?Page 1 DEPARTMENT OF PATHOLOGY AND ??LABORATORY MEDICINE CYTOPATHOLOGY REPORT ? Email: [email or web address] ?[phone] ? ATTENDING MD/Practitioner: ??John Celestin APRN ? Service: PAT ? Location: [facility] ? Reported: 11/06/2014 11:15 ? Collected: 10/29/2014 00:00 INTERPRETATION A. ??THIN PREP (CERVICAL/VAGINAL): ? NEGATIVE FOR INTRAEPITHELIAL LESION OR MALIGNANCY. ? SATISFACTORY FOR EVALUATION; ENDOCERVICAL/ TRANSFORMATION ZONE COMPONENT PRESENT. Slide scanned and imaged by [employer] Thin[employer] Imaging System with manual review of all selected fernandez. ? Electronically Signed Out By MICK Melendez (ASCP) MICK Melendez (ASCP) ? Cervical cytology is a screening test primarily for squamous cancers and precursors and has associated false negative and positive results. New technologies such as liquid based sampling may decrease but will not eliminate all false negative results. Regular screening and follow-up of unexplained clinical signs and symptoms are recommended to minimize false negative results. ??Please see the ASCCP website (www.asccp.org) for followup recommendations. If HPV testing was requested, correlation with the results is suggested (please call Microbiology at [phone] for results). CLINICAL INFORMATION: Menstrual History: Cyclic Date of Last Menstrual Period: ? 10/03/14 Other Clinical Conditions: If ASCUS and > 24 years of age, HPV/DNA testing requested. SPECIMEN DESCRIPTION: A: ??THIN PREP (CERVICAL/VAGINAL) ? THIN PREP PROCESS CELLULAR ENHANCEMENT ICD: ??F: A; RT IMAGE 35054 SNOMED CODES: A; [id number] In cases where a pathologist has signed out the report, the service has been rendered in part by a resident. The signing pathologist has performed and is responsible for the reported pathologic evaluation. us [facility] Provider LAB PATHOLOGY ORDERABLES Final Result [facility] from Last 3 Months or Most Recently Relevant to Health Maintenance Insurance [facility] MEDICAID Care Teams [employer] Relationship Specialty Start Date End Date Jaquan Conley MD [address] [place] [address] PCP - General 11/28/20
--- OUTSIDE RECORDS SUMMARY | 2024-05-30 08:38 | XMS_ITS | Encounter Summary ---
Author Organization [facility] Address [address] [place] [address] Care Team Providers Care Rn Intern Name Role Phone Unavailable Primary Care Provider Unavailabl e Reason for Visit * (Emergency) - Closed Specialty Diagnoses / Procedures Referred By Contac t Referred To Contact Radiology Diagnoses Right upper limb pain Procedures XR Hand 3+ View Right Thomas, Fabiola Villafuerte MD [address] [place] [phone] Phone: tel: fax: Referral ID Status Reason Start Date Expiration Date Visits Re quested Visits Authorized [id number] Closed 02/15/2018 02/15/2019 1 1 Encounter Details Date Type Department Care Team (Latest Contact Info) Description 02/15/2018 5:39 PM EDT - 02/15/2018 11:59 PM EDT Hospital Encounter [facility] XRAY [address] [place] [address] Discharge Disposition: Home or Self [...] TAKE 1 TABLET EVERY DAY 0 12/23/2015 11/28/201 8 pramipexole (MIRAPEX) 0.125 MG tablet TAKE 1 TABLET EACH NIGHT AT BEDTIME 0 12/23/2015 8 documented as of this encounter Plan of Treatment Not on file documented as of this encounter Procedures Procedure Name Priority Date/Time Associated Diagnosis Comments XR HAND 3+ VW RIGHT STAT 02/15/2018 5 :52 PM EDT Right upper limb pain documented in this encounter Results * XR Hand 3+ View Right (02/15/2018 5:52 PM EDT) Anatomical Region Laterality Modality Upper Extremities, Hand Right Radiogra [facility] 02/15/2018 5:54 PM EDT Impressions 02/15/2018 5:54 PM EDT No acute fracture. ?? This report was finalized on 02/15/2018 5:54 PM by Brittny Lacey M.D.. Narrative 02/15/2018 5:54 PM EDT PROCEDURE: XR HAND 3+ VW RIGHT- History: M79.6; M79.601-Pain in right arm COMPARISON: None. FINDINGS: ??A 3 view exam demonstrates no acute fracture or dislocation. The joint spaces are preserved. No soft tissue abnormality is seen. ? Procedure Note Brittny Lacey MD - 02/15/2018 PROCEDURE: XR HAND 3+ VW RIGHT- History: M79.6; M79.601-Pain in right arm COMPARISON: None. FINDINGS: A 3 view exam demonstrates no acute fracture or dislocation. The joint spaces are preserved. No soft tissue abnormality is seen. IMPRESSION: No acute fracture. This report was finalized on 02/15/2018 5:54 PM by Brittny Lacey M.D.. Fabiola Guzman MD IMG DIAGNOSTIC IMAGING ORDER BERTIN Final Result documented in this encounter Visit Diagnoses Not on filedocumented in this encounter
--- OUTSIDE RECORDS SUMMARY | 2024-05-30 08:38 | XMS_ITS | Encounter Summary ---
Author Organization [facility] Address [address] [place] [address] Care Team Providers Care Brake Operator Helper Name Role Phone Jaquan Conley MD Primary Care Provider [phone] Reason for Visit * (Routine) - Closed Specialty Diagnoses / Procedures Referred By Contac t Referred To Contact Radiology Diagnoses Acute bilateral thoracic back pain Procedures XR Spine Thoracic 3 View Jaquan Conley MD [address] [place] [id number] Phone: tel: fax: Referral ID Status Reason Start Date Expiration Date Visits Re quested Visits Authorized [id number] Closed 01/25/2017 01/25/2018 1 1 Encounter Details Date Type Department Care Team (Latest Contact Info) Description 01/25/2017 6:15 PM EDT - 01/25/2017 11:59 PM EDT Hospital Encounter [facility] XRAY [address] [place] [address] Jaquan Conley MD [address] [place] [address] Discharge Disposition: Home or Self Care Social [...] 12/23/2015 06/14/2018 documented as of this encounter Plan of Treatment Not on file documented as of this encounter Procedures Procedure Name Priority Date/Time Associated Diagnosis Comments XR SPINE THORACIC 3 VW Routine 01/25/2017 6:37 PM EDT Acute bilateral thoracic back pain documented in this encounter Results * XR Spine Thoracic 3 View (01/25/2017 6:37 PM EDT) Anatomical Region Laterality Modality Spine, T-spine N/A Radiographic Kim ging 01/26/2017 8:39 AM EDT Impressions 01/26/2017 8:42 AM EDT Mild spondylosis and dextrocurvature of the thoracic spine. This report was finalized on 01/26/2017 8:42 AM by Bubba Morel DO. Narrative 01/26/2017 8:42 AM EDT PROCEDURE: XR SPINE THORACIC 3 VW- HISTORY: M54.6; M54.6-Pain in thoracic spine FINDINGS: 2 views of the thoracic spine were obtained. No evidence of a compression fracture. There is slight dextrocurvature of the thoracic spine. Mild degenerative endplate changes are present. Visualized portions of heart and mediastinum are unremarkable. Procedure Note Bubba Morel DO - 07/12/2017 PROCEDURE: XR SPINE THORACIC 3 VW- HISTORY: M54.6; M54.6-Pain in thoracic spine FINDINGS: 2 views of the thoracic spine were obtained. No evidence of a compression fracture. There is slight dextrocurvature of the thoracic spine. Mild degenerative endplate changes are present. Visualized portions of heart and mediastinum are unremarkable. IMPRESSION: Mild spondylosis and dextrocurvature of the thoracic spine. This report was finalized on 01/26/2017 8:42 AM by Bubba Morel DO. Jaquan Conley MD IMG DIAGNOSTIC IMAGING OR DERABLES Final Result documented in this encounter Visit Diagnoses Not on filedocumented in this encounter Care Teams Brake Operator Helper Relationship Specialty Start Date End Date Jaquan Conley MD [address] [place] [address] PCP - General 01/25/17 09/21/17 documented as of this encounter
--- OUTSIDE RECORDS SUMMARY | 2024-05-30 08:38 | XMS_ITS | Encounter Summary ---
Author Organization [facility] Address [address] [place] [address] Care Team Providers Care Hyperbaric Nurse Name Role Phone Lauren Slade ANJU Primary Care Provider [phone] Reason for Visit * Reason Comments Hyperglycemia Chest Pain Encounter Details Date Type Department Care Team (Late st Contact Info) Description 01/31/2018 2:08 PM EDT - 01/31/2018 5:54 PM EDT Emergency [facility] [place] [address] [place] [id number] Mickey Cerda MD [address] [place] [address] Hyperglycemia without ketosis (Primary Dx); Chronic renal impairment, unspecified CKD stage; Chest pain, atypical Discharge Disposition: Home or Self Care Social [...] Sign Reading Time Taken Comments Blood Pressure 131/96 01/31/2018 5:52 PM EDT Pulse 81 01/31/2018 5:52 PM EDT Temperature 36.9 ??C (98.4 ??F) 01/31/2018 5:52 PM ED T Respiratory Rate 19 01/31/2018 5:52 PM EDT Oxygen Saturation 98% 01/31/2018 5:52 PM EDT Inhaled Oxygen Concentration - - Weight 84.4 kg (186 lb) 01/31/2018 2:09 PM EDT Height 165.1 cm (5' 5 ) 01/31/2018 2:09 PM EDT Body Mass Index 30.95 01/31/2018 2:09 PM EDT documented in this encounter Discharge Instructions * Attachments The following attachments cannot be sent through Care Everywhere. * Blood Glucose Monitoring Adult (Kittitian) * Hyperglycemia (Kittitian) * Glomerular Filtration Rate (Kittitian) * Nonspecific Chest Pain Ovpe-as-Myyo (Kittitian) documented in this encounter Medications at [...] ED Notes * Ladan Young RN - 01/31/2018 4:56 PM EDT Spoke with lab. Stated that they are drawing blood on he 4th floor and will be down as soon as she is finished. Ladan Yonug RN 01/31/18 [id number] * Ladan Young RN - 01/31/2018 3:02 PM EDT Brandon Crowder PA-C notified of B/P of 153/94. Changed order for Clonidine. Ladan Young RN 01/31/18 1526 * Ladan Young RN - 01/31/2018 2:55 PM EDT Patient unable to void at this time. Ladan Young RN 01/31/18 1525 * Vinny Crowder PA-C - 01/31/2018 2:06 PM EDT Subjective This is a 27 y/o white female that comes in with c/c chest pain X one day. Patient states that she woke up this a.m. Around 3 a.m. Patient reports sharp, stabbing pain in left side of chest. Patient also reports that she has had elevated glucose over 500. Patient denies any associated SOA. Has had some nausea. No vomiting, dizziness. Patient does have history of htn, hyperlipidemia, and diabetes. 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: No Chest Pain Pain location: Substernal area Pain quality: sharp and stabbing Pain radiates to: Does not radiate Pain severity: Moderate Onset quality: Sudden Duration: 12 hours Timing: Intermittent Progression: Worsening Chronicity: New Context: not breathing, not drug use, not intercourse and not lifting Relieved by: Nothing Worsened by: Nothing Ineffective treatments: None tried Associated symptoms: no abdominal pain, no AICD problem, no altered mental status, no cough, no diaphoresis, no dizziness, no dysphagia, no palpitations and no shortness of breath Risk factors: diabetes mellitus and hypertension Risk factors: no aortic disease Hyperglycemia 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 HENT: Negative for trouble swallowing. Respiratory: Positive for chest tightness. Negative for cough and shortness of breath. Cardiovascular: Positive for chest pain. Negative for palpitations. Gastrointestinal: Negative for abdominal pain. Genitourinary: Positive for frequency and urgency. Neurological: Negative for dizziness. All other systems reviewed and are negative. Past 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: Diagnosis Date ??? Allergic ??? Anxiety ??? Arthritis ??? Chronic constipation ??? Depression ??? Diabetes mellitus (CMS/HCC) ??? Excessive thirst ??? H/O mammogram 2015 ??? Headache ??? Hot skin ??? Hyperlipidemia [...] Bowel sounds are normal. She exhibits no distension and no mass. There is no tenderness. There is no rebound and no guarding. Musculoskeletal: Normal range of motion. She exhibits no edema, tenderness or deformity. Neurological: She is alert and oriented to person, place, and time. She displays normal reflexes. No cranial nerve deficit. She exhibits normal muscle tone. Coordination normal. Skin: Skin is warm and dry. Capillary refill takes less than 2 seconds. No rash noted. She is not diaphoretic. No erythema. No pallor. Psychiatric: Her behavior is normal. Judgment and thought content normal. Her mood appears anxious. Nursing note and vitals reviewed. Procedures ED Course ED Course as of Jan 31 1746 Tue Jan 31, 2018 1503 This is a 27y/o female that comes in with c/c sudden onset of chest pain located on left side of chest. Patient has had normal work-up this far with EKG, negative cardiac enzymes. Patient does diabetes and states that she has been hyperglycemic at home running over 500. Patent did have work upand does not appear to be in DKA with current blood gas. Patient is stable at this time. Her creatine is elevated, but improved from value 2 weeks ago and appears to be around her baseline. Dimer wasnegative virtually ruling out P.E. [] 1505 Creatinine: (!) 1.60 [] 1604 Patient does states that she feels much better at this time. Denies any current chest pain. [] ED Course User Index [] Vinny Crowder PA-C MDM Number of Diagnoses or Management Options Amount and/or Complexity of Data Reviewed Decide to obtain previous medical records or to obtain history from someone other than the patient:yes Final diagnoses: Hyperglycemia without ketosis Chronic renal impairment, unspecified CKD stage Chest pain, atypical Vinny Crowder PA-C 01/31/[id number] Cosigned by Mickey Cerda MD at 01/31/2018 6:03 PM EDT Associated attestation - Mickey Cerda MD - 01/31/2018 6:03 PM EDT For this patient encounter, I reviewed the PRINT SHOP MANAGER or PA documentation, treatment plan, and medical decision making. Mickey Cerda MD 01/31/2018 6:03 PM documented in this encounter Plan of Treatment Not on file documented as of this encounter Procedures Procedure Name Priority Date/Time Associated Diagnosis Comments TROPONIN STAT 01/31/2018 5:08 PM EDT POCT GLUCOSE FINGERSTICK STAT 01/31/2018 4:38 PM EDT XR CHEST 2 VW STAT 01/31/2018 3:20 PM EDT URINALYSIS, MICROSCOPIC ONLY STAT 01/31/2018 3:20 PM EDT URINALYSIS W/ MICROSCOPIC IF INDICATED (NO CULTURE) STAT 01/31/2018 3:20 PM EDT URINE DRUG SCREEN STAT 01/31/2018 3:2 0 PM EDT BLOOD GAS, ARTERIAL W/CO-OXIMETRY STAT 01/31/2018 2:41 PM EDT CBC WITH AUTO DIFFERENTIAL STAT 01/31/2018 2:15 PM EDT TROPONIN STAT 01/31/2018 2:15 PM EDT APTT STAT 01/31/2018 2:15 PM EDT PROTIME-INR STAT 01/31/2018 2:15 PM EDT D-DIMER, QUANTITATIVE STAT 01/31/2018 2:15 PM EDT LIPASE STAT 01/31/2018 2:15 PM EDT LACTIC ACID, PLASMA STAT 01/31/2018 2 :15 PM EDT COMPREHENSIVE METABOLIC PANEL STAT 01/31/2018 2:15 PM EDT POCT GLUCOSE FINGERSTICK STAT 01/31/2018 2:06 PM EDT documented in this encounter Results * Troponin (01/31/2018 5:08 PM EDT) Troponin I <0.012 0.000 - 0.034 ng/mL 01/31/2018 5:41 PM EDT [facility] Blood Left upper arm structure / Unknown Venipuncture / Unknown 01/31/2018 5:08 PM EDT 01/31/2018 5:12 PM EDT Narrative [facility] - 01/31/2018 5:41 PM EDT Normal Patient Upper Reference Limit (URL) (99th Percentile)=0.03 ng/mL Non-AMI Illness Reference Limit=0.03-0.11 ng/mL AMI Confirmation=0.12 ng/mL and above Vinny Crowder PA-C LAB BLOOD ORDERABLES Fi nal Result Performing Organization Address City/[facility] Co de Phone Number [facility]
[address] [place] [address], * (ABNORMAL) POC Glucose Once (01/31/2018 4:38 PM EDT) Glucose 357(H) 70 - 130 mg/dL 02/01/2018 9:55 AM EDT [facility] [place] Comment:Serial Number: [id number]: [id number] Blood 01/31/2018 4:38 PM EDT 02/01/2018 9:55 AM EDT Mickey Cerda MD POINT OF CARE TEST ORDERABL ES Final Result Performing Organization Address [facility] Co de Phone Number [facility] [place]
[address] [place] [address], * XR Chest 2 View (01/31/2018 3:20 PM EDT) Anatomical Region Laterality Modality Body N/A Radiographic Kim ging 01/31/2018 3:09 PM EDT Impressions 01/31/2018 3:09 PM EDT No acute cardiopulmonary findings. ? This report was finalized on 01/31/2018 3:09 PM by Surendra Pike MD. Narrative 01/31/2018 3:09 PM EDT PROCEDURE: XR CHEST 2 VW- HISTORY: chest pain COMPARISON: 05/10/2017 FINDINGS: EKG leads overlie the chest. The lungs are clear and there is no evidence of effusion or other pleural disease. The cardiac silhouette and mediastinum appear to be normal in size and configuration. The bony thorax appears intact. ? Procedure Note Janak Pike MD - 01/31/2018 PROCEDURE: XR CHEST 2 VW- HISTORY: chest pain COMPARISON: 05/10/2017 FINDINGS: EKG leads overlie the chest. The lungs are clear and there is no evidence of effusion or other pleural disease. The cardiac silhouette and mediastinum appear to be normal in size and configuration. The bony thorax appears intact. IMPRESSION: No acute cardiopulmonary findings. This report was finalized on 01/31/2018 3:09 PM by Surendra Pike MD. Vinny Crowder PA-C IMG DIAGNOSTIC IMAGING ORDERABLES Final Result * (ABNORMAL) Urinalysis, Microscopic Only - Urine, Clean Catch (01/31/2018 3:20 PM EDT) RBC, UA 0-2(A) None Seen /HPF 01/31/2018 3:36 PM EDT [facility] WBC, UA 0-2(A) None Seen /HPF 01/31/2018 3:36 PM EDT [facility] Bacteria, UA Trace(A) None Seen /HPF 01/31/2018 3:36 PM EDT [facility] Squamous Epithelial Cells, UA 0-2 None Seen, 0-2 /HPF 01/31/2018 3:36 PM EDT [facility] Hyaline Casts, UA None Seen None Seen /LPF 01/31/2018 3:36 PM EDT [facility] Methodology Manual Light Microscopy 01/31/2018 3:36 PM EDT [facility] Urine Urine specimen collection, clean catch / Unknown Collection / Unknown 01/31/2018 3:20 PM EDT 01/31/2018 3:22 PM EDT us Vinny Crowder PA-C URINE ORDERABLES Final Result [facility]
[address] [place] [address], [place] [phone] * (ABNORMAL) Urinalysis With Microscopic If Indicated (No Culture) - Urine, Clean Catch (01/31/2018 3:20 PM EDT) Color, UA Yellow Yellow, Straw 01/31/2018 3:31 PM EDT [facility] Appearance, UA Clear Clear 01/31/2018 3:31 PM EDT [facility] pH, UA 6.0 5.0 - 8.0 01/31/2018 3:31 PM EDT [facility] Specific [place], UA 1.020 1.005 - 1.030 01/31/2018 3:31 PM EDT [facility] Glucose, UA 500 mg/dL (2+)(A) Negative 01/31/2018 3:31 PM EDT [facility] Ketones, UA Negative Negative 01/31/2018 3:31 PM EDT [facility] Bilirubin, UA Negative Negative 01/31/2018 3:31 PM EDT [facility] Blood, UA Trace(A) Negative 01/31/2018 3:31 PM EDT [facility] Protein, UA >=300 mg/dL (3+)(A) Negative 01/31/2018 3:31 PM EDT [facility] Leuk Esterase, UA Negative Negative 01/31/2018 3:31 PM EDT [facility] Nitrite, UA Negative Negative 01/31/2018 3:31 PM EDT [facility] Urobilinogen, UA 0.2 E.U./dL 0.2 - 1.0 E.U./dL 01/31/2018 3:31 PM EDT [facility] Urine Urine specimen collection, clean catch / Unknown Collection / Unknown 01/31/2018 3:20 PM EDT 01/31/2018 3:22 PM EDT Vinny Crowder PA-C URINE ORDERABLES Final Result [facility]
[address] [place] [id number], * Urine Drug Screen - Urine, Clean Catch (01/31/2018 3:20 PM EDT) THC, Screen, Urine Negative Negative 2017 3:36 PM EDT [facility] Phencyclidine (PCP), Urine Negative Negative 01/31/2018 3:36 PM EDT [facility] Cocaine Screen, Urine Negative Negative 01/31/2018 3:36 PM EDT [facility] Methamphetamine, Ur Negative Negative 01/31 3:36 PM EDT [facility] Opiate Screen Negative Negative 01/31/2018 3:36 PM EDT [facility] Amphetamine Screen, Urine Negative Negative 01/31/2018 3:36 PM EDT [facility] Benzodiazepine Screen, Urine Negative Negative 01/31/2018 3:36 PM EDT [facility] Tricyclic Antidepressants Screen Negative Negative 01/31/2018 3:36 PM EDT [facility] Methadone Screen, Urine Negative Negative 01/31/2018 3:36 PM EDT [facility] Barbiturates Screen, Urine Negative Negative 01/31/2018 3:36 PM EDT [facility] Oxycodone Screen, Urine Negative Negative 01/31/2018 3:36 PM EDT [facility] Propoxyphene Screen Negative Negative 01/31 3:36 PM EDT [facility] Buprenorphine, Screen, Urine Negative Negative 01/31/2018 3:36 PM T [facility] Urine Urine specimen collection, clean catch / Unknown Collection / Unknown 01/31/2018 3:20 PM EDT 01/31/2018 3:22 PM EDT Narrative [facility] - 01/31/2018 3:36 PM EDT Limitations of this procedure include the possibility of false positives due to interfering substances in the urine sample. Clinical data should be correlated with any questionable result. Positive results should be considered Presumptive Positive until results are confirmed with another methodology such as HPLC or GCMS. Vinny Crowder PA-C URINE ORDERABLES Final Result [facility]
[address] [place] [address], [place] [phone] * (ABNORMAL) Blood Gas, Arterial With Co-Ox (01/31/2018 2:41 PM EDT) Site Left Radial 01/31/2018 2:41 PM EDT [facility] Kamari's Test Positive 01/31/2018 2:41 PM EDT [facility] pH, Arterial 7.365 7.300 - 7.500 pH units 01/31/2018 2:41 PM EDT [facility] pCO2, Arterial 32.5(L) 35.0 - 45.0 mm Hg 01/31/2018 2:41 PM EDT [facility] pO2, Arterial 99.6 75.0 - 100.0 mm Hg 01/31/2018 2:41 PM EDT [facility] HCO3, Arterial 18.6(L) 22.0 - 28.0 mmol/L 01/31/2018 2:41 PM EDT [facility] Base Excess, Arterial -6.0(L) 0.0 - 2.0 mmol/L 01/31/2018 2:41 PM EDT [facility] O2 Saturation, Arterial 98.1 94.0 - 100.0 % 01/31/2018 2:41 PM EDT [facility] Hemoglobin, Blood Gas 10.8(L) 12 - 18 g/dL 01/31/2018 2:41 PM EDT [facility] Hematocrit, Blood Gas 33.2 % 01/31/2018 2:41 PM EDT [facility] Oxyhemoglobin 93.7(L) 94 - 99 % 01/31/2018 2:41 PM EDT [facility] Methemoglobin 1.40 0.00 - 1.50 % 01/31/2018 2:41 PM EDT [facility] Carboxyhemoglobin 3.1(H) 0 - 2 % 018 2:41 PM EDT [facility] Barometric Pressure for Blood Gas 733 mmHg 01/31/2018 2:41 PM EDT [facility] Modality N/A 01/31/2018 2:41 PM EDT [facility] FIO2 21 % 01/31/2018 2:41 PM EDT [facility] Ventilator Mode NA 8 2:41 PM EDT [facility] Collected by db 01/31/2018 2:41 PM EDT [facility] pH, Temp Corrected pH Units 2017 2:41 PM EDT [facility] pCO2, Temperature Corrected 35 - 45 mm Hg 01/31/2018 2:41 PM EDT [facility] pO2, Temperature Corrected 83 - 108 mm Hg 01/31/2018 2:41 PM EDT [facility] Arterial Blood 01/31/2018 2: 41 PM EDT 01/31/2018 2:41 PM EDT Mickey Cerda MD LAB BLOOD ORDERABLES Final Result [facility]
[address] [place] [address], * Lipase (01/31/2018 2:15 PM EDT) Lipase 99 23 - 300 U/L 01/31/2018 2:49 PM EDT [facility] Blood Venipuncture / Unknown 01/31/2018 2:15 PM EDT 01/31/2018 2:22 PM EDT Vinny Crowder PA-C LAB BLOOD ORDERABLES Fi nal Result [facility]
[address] [phone] * (ABNORMAL) Comprehensive Metabolic Panel (01/31/2018 2:15 PM EDT) Glucose 469(HH) 74 - 98 mg/dL 01/31/2018 2:51 PM T [facility] Comment:Glucose >180, Hemogl obin A1C recommended. BUN 19 7 - 20 mg/dL 01/31/2018 2:51 PM T [facility] Comment:Specimen hemolyzed. Results may be affected. Creatinine 1.60(H) 0.60 - 1.30 mg/dL 01/31/2018 2:51 PM T [facility] Sodium 133(L) 137 - 145 mmol/L 01/31/2018 2:51 PM EDT [facility] Potassium 5.4(H) 3.5 - 5.1 mmol/L 01/31/2018 2:51 PM T [facility] Comment:Specimen hemolyzed. Results may be affected. Chloride 106 98 - 107 mmol/L 01/31/2018 2:51 PM [facility] CO2 22.0(L) 26.0 - 30.0 mmol/L 01/31/2018 2:51 PM [facility] Calcium 8.6 8.4 - 10.2 mg/dL 01/31/2018 2:51 PM [facility] Total Protein 6.1(L) 6.3 - 8.2 g/dL 01/31/2018 2:51 PM [facility] Albumin 3.30(L) 3.50 - 5.00 g/dL 01/31/2018 2:51 PM [facility] ALT (SGPT) 19 13 - 69 U/L 01/31/2018 2:51 PM T [facility] Comment:Specimen hemolyzed. Results may be affected. AST (SGOT) 14(L) 15 - 46 U/L 01/31/2018 2:51 PM T [facility] Comment:Specimen hemolyzed. Results may be affected. Alkaline Phosphatase 77 38 - 126 U/L 01/31/2018 2:51 PM T [facility] Comment:Specimen hemolyzed. Results may be affected. Total Bilirubin 0.3 0.2 - 1.3 mg/dL 01/31/2018 2:51 PM EDT [facility] eGFR Non Amer 38(L) >60 mL/min/1.7 3 01/31/2018 2:51 PM EDT [facility] Globulin 2.8 gm/dL 01/31/2018 2:51 PM EDT [facility] A/G Ratio 1.2 1.0 - 2.0 g/dL 01/31/2018 2:51 PM EDT [facility] BUN/Creatinine Ratio 11.9 7.1 - 23.5 01/31/2018 2:51 PM EDT [facility] Anion Gap 10.4 10.0 - 20.0 mmol/L 01/31/2018 2:51 PM EDT [facility] Blood Venipuncture / Unknown 01/31/2018 2:15 PM EDT 01/31/2018 2:22 PM EDT Narrative [facility] - 01/31/2018 2:51 PM EDT GFR Normal >60 Chronic Kidney Disease <60 Kidney Failure <15 Vinny Crowder PA-C LAB BLOOD ORDERABLES Fi nal Result [facility]
[address] [place] [id number], * (ABNORMAL) CBC Auto Differential (01/31/2018 2:15 PM EDT) WBC 7.72 4.80 - 10.80 10*3/mm3 01/31/2018 2:26 PM EDT [facility] RBC 3.87(L) 4.20 - 5.40 10*6/mm3 01/31/2018 2:26 PM EDT [facility] Hemoglobin 11.3(L) 12.0 - 16.0 g/dL 01/31/2018 2:26 PM EDT [facility] Hematocrit 34.2(L) 37.0 - 47.0 % 01/31/2018 2:26 PM EDT [facility] MCV 88.4 81.0 - 99.0 fL 01/31/2018 2:26 PM EDT [facility] MCH 29.2 27.0 - 31.0 pg 01/31/2018 2:26 PM EDT [facility] MCHC 33.0 30.0 - 37.0 g/dL 01/31/2018 2:26 PM EDT [facility] RDW 11.8 11.5 - 14.5 % 01/31/2018 2:26 PM EDT [facility] RDW-SD 37.5 37.0 - 54.0 fl 01/31/2018 2:26 PM EDT [facility] MPV 13.0(H) 6.0 - 12.0 fL 01/31/2018 2:26 PM EDT [facility] Platelets 195 130 - 400 10*3/mm3 01/31/2018 2:26 PM EDT [facility] Neutrophil % 50.3 37.0 - 80.0 % 01/31/2018 2:26 PM EDT [facility] Lymphocyte % 41.7 10.0 - 50.0 % 01/31/2018 2:26 PM EDT [facility] Monocyte % 4.0 0.0 - 12.0 % 01/31/2018 2:26 PM EDT [facility] Eosinophil % 3.1 0.0 - 7.0 % 01/31/2018 2:26 PM EDT [facility] Basophil % 0.4 0.0 - 2.5 % 01/31/2018 2:26 PM EDT [facility] Immature Grans % 0.5 0.0 - 0.6 % 01/31/2018 2:26 PM EDT [facility] Neutrophils, Absolute 3.88 2.00 - 6.90 10*3/mm3 01/31/2018 2:26 PM EDT [facility] Lymphocytes, Absolute 3.22 0.60 - 3.40 10*3/mm3 01/31/2018 2:26 PM EDT [facility] Monocytes, Absolute 0.31 0.00 - 0.90 10*3/mm3 01/31/2018 2:26 PM EDT [facility] Eosinophils, Absolute 0.24 0.00 - 0.70 10*3/mm3 01/31/2018 2:26 PM EDT [facility] Basophils, Absolute 0.03 0.00 - 0.20 10*3/mm3 01/31/2018 2:26 PM EDT [facility] Immature Grans, Absolute 0.04 0.00 - 0.06 10*3/mm3 01/31/2018 2:26 PM EDT [facility] nRBC 0.0 0.0 - 0.0 /100 WBC 01/31/2018 2:26 PM EDT [facility] Blood Venipuncture / Unknown 01/31/2018 2:15 PM EDT 01/31/2018 2:22 PM EDT Vinny MENDEZ-Todd LAB BLOOD ORDERABLES Fi nal Result [facility]
[address] [place] [address], * aPTT (01/31/2018 2:15 PM EDT) PTT 25.2 25.0 - 36.0 seconds 01/31/2018 2:46 PM EDT [facility] Blood Venipuncture / Unknown 01/31/2018 2:15 PM EDT 01/31/2018 2:22 PM EDT Vinny MENDEZ-Todd LAB BLOOD ORDERABLES Fi nal Result [facility]
[address] [place] [address], [place] [phone] * Protime-INR (01/31/2018 2:15 PM EDT) Protime 10.4 9.3 - 12.1 Seconds 01/31/2018 2:46 PM EDT [facility] INR 0.93 0.90 - 1.10 01/31/2018 2:46 PM EDT [facility] Blood Venipuncture / Unknown 01/31/2018 2:15 PM EDT 01/31/2018 2:22 PM EDT Vinny MENDEZ-C LAB BLOOD ORDERABLES Fi nal Result [facility]
[address] [place] [address], [place] [phone] * D-dimer, Quantitative (01/31/2018 2:15 PM EDT) D-Dimer, Quantitative 287 0 - 500 ng/mL (FEU) 01/31/2018 3:07 PM EDT [facility] Blood Venipuncture / Unknown 01/31/2018 2:15 PM EDT 01/31/2018 2:22 PM EDT Vinny MENDEZ-C LAB BLOOD ORDERABLES Fi nal Result Performing Organization Address [facility]/ZIP Co de Phone Number [facility]
[address] [place] [address], [place] [phone] * Troponin (01/31/2018 2:15 PM EDT) Pathologist [facility] Troponin I <0.012 0.000 - 0.034 ng/mL 01/31/2018 2:49 PM EDT [facility] Blood Venipuncture / Unknown 01/31/2018 2:15 PM EDT 01/31/2018 2:22 PM EDT Narrative [facility] - 01/31/2018 2:49 PM EDT Normal Patient Upper Reference Limit (URL) (99th Percentile)=0.03 ng/mL Non-AMI Illness Reference Limit=0.03-0.11 ng/mL AMI Confirmation=0.12 ng/mL and above Vinny MENDEZ-C LAB BLOOD ORDERABLES Fi nal Result [facility]
[address] [phone], * Lactic Acid, Plasma (01/31/2018 2:15 PM EDT) Lactate 1.4 0.5 - 2.0 mmol/L 01/31/2018 2:37 PM EDT [facility] Blood Venipuncture / Unknown 01/31/2018 2:15 PM EDT 01/31/2018 2:22 PM EDT Vinny Crowder PA-C LAB BLOOD ORDERABLES Fi nal Result [facility]
[address] [place] [address], * (ABNORMAL) POC Glucose Once (01/31/2018 2:06 PM EDT) Glucose 515(HH) 70 - 130 mg/dL 02/01/2018 9:55 AM EDT [facility] Comment:Serial Number: [id number] Blood 01/31/2018 2:06 PM EDT 02/01/2018 9:55 AM EDT Mickey Cerda MD POINT OF CARE TEST ORDERABL ES Final Result [facility]
[address] [place] [address], documented in this encounter Visit Diagnoses Diagnosis Hyperglycemia without ketosis- Primary Chronic renal impairment, unspecified CKD stage Chest pain, atypical documented in this encounter Administered Medications Inactive Administered Medications - up to 3 most recent administrations Medication Order MAR Action Action Date Dose Rate Site CloNIDine (CATAPRES) tablet 0.1 mg 0.1 mg, Oral, Once, On Tue01/31/18 at 1521, For 1 dose, Caution: Look alike/sound alike drug alert. Please read the label. Caution: Look alike/sound alike drug alert. Given 01/31/2018 3:23 PM EDT 0.1 mg insulin regular (humuLIN R,novoLIN R) injection 10 Units 10 Units, Subcutaneous, Once, On Tue01/31/18 at 1501, For 1 dose, {BKC} Caution: Look alike/sound alike drug alert{BKC} Given 01/31/2018 3:18 PM EDT 10 Units Right Arm sodium chloride 0.9 % bolus 1,000 mL 1,000 mL, Intravenous, at 2,000 mL/hr, Administer over 0.5 Hours, Once, On Tue01/31/18 at 1411, For 1 dose New Bag 01/31/2018 2:09 PM EDT 1,000 mL 2000 mL/hr sodium chloride 0.9 % flush 10 mL 10 mL, Intravenous, As Needed, Line Care, Starting on Tue01/31/18 at 1408 documented in this encounter Active and Recently Administered Medications Times are shown in EDT. Scheduled Medication Order 01/29/2018 01/30/2018 01/31/2018 CloNIDine (CATAPRES) tablet 0.1 mg (COMPLETED) 0.1 mg, Oral, Once, On Tue01/31/18 at 1521, For 1 dose, Caution: Look alike/sound alike drug alert. Please read the label. Caution: Look alike/sound alike drug alert. 1523 (Given - Provid er: Ladan Young RN) insulin regular (humuLIN R,novoLIN R) injection 10 Units (COMPLETED) 10 Units, Subcutaneous, Once, On Tue01/31/18 at 1501, For 1 dose, {BKC} Caution: Look alike/sound alike drug alert{BKC} 1518 (Given - Provid er: Ladan Young RN) sodium chloride 0.9 % bolus 1,000 mL (COMPLETED) 1,000 mL, Intravenous, at 2,000 mL/hr, Administer over 0.5 Hours, Once, On Tue01/31/18 at 1411, For 1 dose 1409 (New Bag - Prov ider: Ladan Young RN)1450 (Stopped - Provider: Ladan Young RN) PRN Medication Order 01/29/2018 01/30/2018 01/31/2018 sodium chloride 0.9 % flush 10 mL(Linked Group 1) 10 mL, Intravenous, As Needed, Line Care, Starting on Tue01/31/18 at 1408 Linked Groups Order Group 1: Insert peripheral IV (CANCELED) Once, On Tue01/31/18 at 1409, For 1 occurrence And sodium chloride 0.9 % flush 10 mLJump to med 10 mL, Intravenous, As Needed, Line Care, Starting on Tue01/31/18 at 1408 documented in this encounter Care Teams Hyperbaric Nurse Relationship Specialty Start Date End Date Lauren Slade APRN [facility] [place] [address] PCP - General Family Medicine 09/22/17 02/05/18 documented as of this encounter
--- OUTSIDE RECORDS SUMMARY | 2024-05-30 08:38 | XMS_ITS | Encounter Summary ---
Author Organization [facility] Address [address] [place] [address] Care Team Providers Care Associate Software Application Engineer Name Role Phone Jaquan Conley MD Primary Care Provider [phone] Reason for Visit * Reason Comments Initial Evaluation * Physical Therapy (Routine) - Closed Specialty Diagnoses / Procedures Referred By Contac t Referred To Contact Physical Therapy Diagnoses Flat back syndrome Low back pain, unspecified back pain laterality, unspecified chronicity, with sciatica presence unspecified Orthopedic aftercare Long Valles MD [address] [place] [address] Phone: tel: fax: Chad Rivera, PT [address] [place] [address] Phone: tel: Referral ID Status Reason Start Date Expiration Date V isits Requested Visits Authorized [id number] Closed Specialty Services Required 03/14/2017 03/14/2018 50 50 Encounter Details Date Type Department Care Team (Late st Contact Info) Description 03/14/2017 4:30 PM EDT Treatment [facility] [address] [place] [address] Chad Rivera, PT [address] [facility] [address] [place] [address] Acute bilateral low back pain with bilateral sciatica (Primary Dx) Social History Tobacco Use Types Packs/Day Years Used Date Smoking Tobacco: Some Days Cigarettes 3 10 Alcohol Use Standard Drinks/Week Comments No 0 (1 standard drink = 0.6 oz pur e alcohol) Comments Unknown Sex and Gender Information Value Date Recorded Sex Assigned at Not on file Legal Sex Female 3:21 PM EDT Gender Identity Not on file Sexual Orientation Not on file documented as of this encounter Progress Notes * Chad Rivera, PT - 03/14/2017 4:30 PM EDT Physical Therapy Initial Evaluation and Plan of Care Patient: Crystal Archer : 1990 Diagnosis/ICD-10 Code: Acute bilateral low back pain with bilateral sciatica [M54.42, M54.41] Referring practitioner: No ref. provider found Subjective Evaluation History of Present Illness Mechanism of injury: Pain began about 4 months ago. Lifted child and back began to hurt in mid back. Sharp pain initially and she had to rest. She had to lay down because the pain elevated so much. She can't sleep and she cant move because the pain is so high. Severe diabetic. 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 Pain Current pain ratin At best pain ratin At worst pain ratin Location: mid thoracic area Alleviating factors: doesnt know any thing that give her relief. Aggravating factors: prolonged positioning, outstretched reach, overhead activity, lifting, movement and standing Progression: no change Patient Goals Patient goals for therapy: decreased pain Objective Static Posture Thoracic Spine Convex curve right, rotated left and flattened thoracic spine. Rib Cage Rib hump. Active Range of Motion Cervical/Thoracic Spine Thoracic Left lateral flexion: WFL Right lateral flexion: WFL Left rotation: WFL Right rotation: WFL Lumbar Flexion: Active lumbar flexion: FT to mid tang area. with pain Extension: Active lumbar extension: moderately limited. with pain Additional Active Range of Motion Details Thoracic mobility minimally tight throughout but not limited by pain alone. Passive Range of Motion Additional Passive Range of Motion Details Minimally decreased from normal tightness. No guarding noted with testing. Strength/Myotome Testing Lumbar Left Heel walk: normal Toe walk: normal Right Heel walk: normal Toe walk: normal General Comments Spine Comments Supine hooklying position 0/10 pain. Supine LTR and OH shoulder flexion 0/10 pain PREP resulted in pain less than she has experienced in 4 months. (per pt report). Assessment & Plan Assessment Impairments: abnormal muscle tone, abnormal or restricted ROM, activity intolerance, lacks appropriate home exercise program and pain with function Assessment details: Patient is a 26 year old female who comes to physical therapy with back pain. Signs and symptoms are consistent with back strain. The patient currently has pain, decreased ROM, decreased strength, and inability to perform all essential functional activities. Pt will benefit fromskilled PT services to address the above issues. Prognosis: fair Prognosis details: Functional Limitations: carrying objects, lifting, pulling, pushing, uncomfortable because of pain,sitting, standing, stooping and unable to perform repetitive tasks Goals Plan Goals: SHORT TERM GOALS: 2 weeks 1. Pt independent with HEP 2. Pt to demonstrate trunk AROM 50-75% of expected norms to allow for improved ability to perform ADL's 3. Pt to demonstrate bilateral hip strength 4/5 in all planes to improved stability of the core/trunk FCI GOALS: 6 weeks 1. Pt to demonstrate trunk AROM 50-75% of expected norms to allow for improved ability to perform functional activities 2. Pt to demonstrate ability to perform full functional squat with good form and without increased pain in the low back 3. Pt to report being able to work full shift or work in the home without increase in pain in the back 4. Pt to report cessation of pain/numbness/tingling into the bilateral leg to show decreased nerve compression Plan Therapy options: will be seen for skilled physical therapy services Planned modality interventions: cryotherapy, thermotherapy (hydrocollator packs) and electrical stimulation/Lao stimulation Planned therapy interventions: abdominal trunk stabilization, manual therapy, spinal/joint mobilization, soft tissue mobilization, strengthening, stretching, therapeutic activities, functional ROM exercises, flexibility, body mechanics training, neuromuscular re-education and postural training Treatment plan discussed with: patient Plan details: Pt will be seen 1 x / week. Assess Pt response to PREP, posture and body mechanics. Manual Therapy: mins 27048; Therapeutic Exercise: mins 91836; Neuromuscular Hair: mins 20500; Therapeutic Activity: 10 nc mins 28484; Gait Training: mins 23747; Ultrasound: mins 23698; Electrical Stimulation: mins 75944 ( [id number]); Dry Needling mins self-pay Timed Treatment: 10nc mins Total Treatment: 42 mins PT SIGNATURE: Chad Rivera, PT DATE TREATMENT INITIATED: 03/14/2017 Initial Certification Certification Period: 06/12/2017 I certify that the therapy services are furnished while this patient is under my care. The servicesoutlined above are required by this patient, and will be reviewed every 90 days. PHYSICIAN: DATE: Please sign and return via fax to .. Thank you, [facility] Physical Therapy. documented in this encounter Plan of Treatment Not on file documented as of this encounter Visit Diagnoses Diagnosis Acute bilateral low back pain with bilateral sciatica- Primary documented in this encounter Care Teams Associate Software Application Engineer Relationship Specialty Start Date End Date Jaquan Conley MD [address] [place], [place] [id number] PCP - General 01/25/17 09/21/17 documented as of this encounter
--- OUTSIDE RECORDS SUMMARY | 2024-05-30 08:38 | XMS_ITS | Encounter Summary ---
Author Organization [facility] Address [address] [place] [address] Care Team Providers Care Political Consultant Name Role Phone Unavailable Primary Care Provider Unavailabl e Reason for Visit * (Routine) - Closed Specialty Diagnoses / Procedures Referred By Contac t Referred To Contact Radiology Diagnoses Right knee pain, unspecified chronicity Procedures XR Knee 3 View Right Fabiola Guzman MD [address] [place] [phone] Phone: tel: fax: Referral ID Status Reason Start Date Expiration Date Visits Re quested Visits Authorized [id number] Closed 02/06/2018 02/06/2019 1 1 Encounter Details Date Type Department Care Team (Latest Contact Info) Description 02/06/2018 12:45 PM EDT - 02/06/2018 11:59 PM EDT Hospital Encounter [facility] XRAY [address] [place] [address] Fabiola Guzman MD [address] [place] [address] Discharge Disposition: Home or Self Care [...] Diagnosis Comments XR SPINE LUMBAR COMPLETE 4+VW Routine 02/06/2018 1:09 PM EDT Dorsalgia XR KNEE 3 VW RIGHT Routine 02/06/2018 1: 09 PM EDT Right knee pain, unspecified chronicity documented in this encounter Results * XR Spine Lumbar 4+ View (02/06/2018 1:09 PM EDT) Anatomical Region Laterality Modality Spine, L-spine N/A Computed Radiogr aphy 02/06/2018 1:18 PM EDT Impressions 02/06/2018 1:19 PM EDT S-shaped curvature of the lower thoracic and lumbar spine with degenerative changes noted in the lower thoracic and upper lumbar spine. This report was finalized on 02/06/2018 1:19 PM by Brittny Lacey M.D.. Narrative 02/06/2018 1:19 PM EDT PROCEDURE: XR SPINE LUMBAR 4+ VW- HISTORY: M54.9; M54.9-Dorsalgia, unspecified FINDINGS: 5 views of the lumbar spine were obtained. The pedicles are intact. There is S-shaped curvature of the lower thoracic and lumbar spine. There is a rotatory component within the lumbar spine. There is no significant subluxation . No fracture is evident. Mild degenerative changes are noted in the lower thoracic and upper lumbar spine. Procedure Note Brittny Lacey MD - 02/06/2018 PROCEDURE: XR SPINE LUMBAR 4+ VW- HISTORY: M54.9; M54.9-Dorsalgia, unspecified FINDINGS: 5 views of the lumbar spine were obtained. The pedicles are intact. There is S-shaped curvature of the lower thoracic and lumbar spine. There is a rotatory component within the lumbar spine. There is no significant subluxation . No fracture is evident. Mild degenerative changes are noted in the lower thoracic and upper lumbar spine. IMPRESSION: S-shaped curvature of the lower thoracic and lumbar spine with degenerative changes noted in the lower thoracic and upper lumbar spine. This report was finalized on 02/06/2018 1:19 PM by Brittny Lacey M.D.. Fabiola Guzman MD [facility] [place]ERT[place] Final Result * XR Knee 3 View Right (02/06/2018 1:09 PM EDT) Anatomical Region Laterality Modality Lower Extremities, Knee Right Computed Radiography 02/06/2018 1:19 PM EDT Impressions 02/06/2018 1:19 PM EDT Unremarkable exam. ?? This report was finalized on 02/06/2018 1:19 PM by Brittny Lacey M.D.. Narrative 02/06/2018 1:19 PM EDT PROCEDURE: XR KNEE 3 VW RIGHT- History: M25.5.61; M25.561-Pain in right knee COMPARISON: None. FINDINGS: ??A 3 view exam demonstrates no acute fracture or dislocation. The joint spaces are preserved. No soft tissue abnormality is seen. ? Procedure Note Brittny Lacey MD - 02/06/2018 PROCEDURE: XR KNEE 3 VW RIGHT- History: M25.5.61; M25.561-Pain in right knee COMPARISON: None. FINDINGS: A 3 view exam demonstrates no acute fracture or dislocation. The joint spaces are preserved. No soft tissue abnormality is seen. IMPRESSION: Unremarkable exam. This report was finalized on 02/06/2018 1:19 PM by Brittny Lacey M.D.. Fabiola Guzman MD [facility] [place] BERTIN Final Result documented in this encounter Visit Diagnoses Not on filedocumented in this encounter
--- OUTSIDE RECORDS SUMMARY | 2024-05-30 08:39 | XMS_ITS | Encounter Summary ---
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, unspecified laterality (CMS/HCC) Social History Tobacco Use Types Packs/Day Years Used Date Smoking Tobacco: Every Day Alcohol Use Standard Drinks/Week Comments Yes 0 (1 standard drink = 0.6 oz pur e alcohol) Comments Unknown Sex and Gender Information Value Date Recorded Sex Assigned at Not on file Legal Sex Female 6:07 PM EDT Gender Identity Not on file Sexual Orientation Not on file documented as of this encounter Plan of Treatment Upcoming Encounters Date Type Department Care Team (Late Contact Info) Description 08/28/2024 11:00 AM EST Office Visit [facility] Endocrinology [address], [address] [place] [address] Erica Ventura PA [address] [place] [address] documented as of this encounter Visit Diagnoses Diagnosis 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
--- OUTSIDE RECORDS SUMMARY | 2024-05-30 08:39 | XMS_ITS | Encounter Summary ---
Author Organization [facility] [place] [facility] Address [address] [place] [address] Care Team Providers Care Scudding Inspector Name Role Phone Jaquan Conley MD Primary Care Provider + [phone] Encounter Details Date Type Department Care Team (Latest Contact Info) Description 12/16/2022 Travel Social History Tobacco Use Types Packs/Day Years Used Date Smoking Tobacco: Former Cigarettes Q uit: 09/2022 Smokeless Tobacco: Never Alcohol Use Standard Drinks/Week [...] Description 08/28/2024 11:00 AM EST Office Visit [facility] Endocrinology [address] [place] [address] Erica Ventura PA [address] [place] [address] documented as of this encounter Visit Diagnoses Not on filedocumented in this encounter Additional Health Concerns Assessment Noted Time A fall risk assessment has been complete d for the patient 12/16/2022 12:47 PM EDT A Body Mass Index follow-up plan has been documented for the patient 12/16/2022 1:35 PM EDT documented as of this encounter Care Teams Scudding Inspector Relationship Specialty Start Date End Date Jaquan Conley MD [address] [place] [address] PCP - General 11/28/20 documented as of this encounter
--- OUTSIDE RECORDS SUMMARY | 2024-05-30 08:39 | XMS_ITS | Encounter Summary ---
Author Organization [facility] Address [address] [place] [address] Care Team Providers Care Photographer Portrait Name Role Phone Jaquan Conley MD Primary Care Provider + [phone] Encounter Details Date Type Department Care Team (Latest Contact Info) Description 05/23/2024 Travel Social History Tobacco Use Types Packs/Day [...] Description 08/28/2024 11:00 AM EST [facility] [address], [address] [place] [address] Erica Ventura PA [address] [place] [address] documented as of this encounter Visit Diagnoses Not on filedocumented in this encounter Additional Health Concerns Assessment Noted Time A fall risk assessment has been complete d for the patient 06/20/2023 12:51 PM EST A Body Mass Index follow-up plan has been documented for the patient 05/23/2024 12:56 PM EST documented as of this encounter Care Teams Photographer Portrait Relationship Specialty Start Date End Date Jaquan Conley MD [address] [place], [place] [id number] PCP - General 11/28/20 documented as of this encounter
--- OUTSIDE RECORDS SUMMARY | 2024-05-30 08:39 | XMS_ITS | Encounter Summary ---
Author Organization [facility] Address [address] [place] [address] Care Team Providers Care Vice President Integrated Name Role Phone Jaquan Conley MD Primary Care Provider + [phone] Reason for Visit * Reason Comments Diabetes Encounter Details Date Type Department Care Team (Late st Contact Info) Description 09/13/2022 1:20 PM EST [facility] End[facility]inology [address] [place] [address] Erica Ventura PA [address] [place] [address] Type 1 diabetes mellitus with other specified complication (CMS/HCC) (Primary Dx); End-stage renal disease (CMS/HCC); 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 No / Unsure 09/13/2022 12:55 PM EST documented as of this encounter Last Filed Vital Signs Vital Sign Reading Time Taken Comments Blood Pressure 157/87 09/13/2022 12:58 PM EST Pulse 85 09/13/2022 12:58 PM EST Temperature - - Respiratory Rate - - Oxygen Saturation - - Inhaled Oxygen Concentration - - Weight 71.2 kg (156 lb 15.5 oz) 023 12:58 PM EST Height - - Body Mass Index 26.12 05/13/2022 12:58 PM EDT documented in this encounter Miscellaneous Notes * Patient Instructions - Erica Valdivia PA - 09/13/2022 1:20 PM EST Dexcom G7 smaller and one piece --> Call us in a month to see if availble * Progress Notes - Erica Valdivia PA - 09/13/2022 1:20 PM EST Subjective Crystal Archer is a 32 y.o. female who presents for an follow up evaluation of Diabetes Mellitis Type 1. Patient was diagnosed at age 12 . Current symptoms/problems include hyperglycemia History noncompliance, substance abuse, multiple DKA events, CKD5/ESRD, Tobacco Abuse, December 2019- Gastric sleeve for wt loss-> dropped from 390's to 138 pounds, Diabetes Today A1c 5.1% 4.8% last office visit 05/08 from 5.5% 12/2021 -Evaluation today with [facility] for peritoneal dialysis catheter, will follow [facility], laparoscopic placement scheduled with Dr. Cb Renee for 09/23 at [facility] -At last office visit reduced all basal rates due to persistent hypoglycemia -Continues with multiple manual insulin pump suspensions, daily average decreased to 3x daily from 12 times per day last office visit, with suspension duration average 15 minutes Current treatment includes insulin pump Tandem Basal IQ 00:00 1.30u/hr 08:00 1.5u/hr-->1.6 12:00 1.5u/hr-->1.6 22:00 1.5u/hr-->1.6 CHO Ratio 1:5 Correction Factor: 1:20 > 120 TDD: 21.9 units/day from 35 units last office visit Basal: 97% Food Bolus: 1%, Correction Bolus 2% AIT: 4 hours CGM: average B Range: 40-330 % In Target (80-140) 62%, Above Target (>140) 34%, Below Target (<80) 4% Known diabetic complications: nephropathy,peripheral neuropathy, and Retinopathy-> she notes that she is refuses to go back to eye doctor, vision remains limited Compliance at present is estimated to be fair- wearing pump and continuous glucose monitor consistently. -She is notes that she is not on renal transplant list at [facility] as she is not currently in dialysis Cardiovascular risk factors: diabetes mellitus, dyslipidemia, hypertension and smoking/ tobacco exposure Is she on KAYLAH inhibitor or angiotensin II receptor amara? No ESRD Is she on a StatinYes Current diet: {diet habits:in general, an unhealthy diet and on average, 1 meals per day Current exercise: {exercise types:no regular exercise Home blood sugar records: CGM, see above -Hypoglycemic events:Yes, on occasion. Also notices overnight hypoglycemia that wakes her from sleep -Severe Hypoglycemic events: Denies -DKA events: Yes, multiple events, denies recent Date of Last Eye Exam: 2020 Date of Last Foot Exam: 05/08 What pump type do you have?: tandem What type of sensor do you have?: dexcom When did you have labs last?: 05/08 The following portions of the chart were reviewed this encounter and updated as appropriate: Tobacco Allergies Meds Problems Med Hx Surg Hx Fam Hx Review of Systems Constitutional: Negative. HENT: Negative. Eyes: Negative. Respiratory: Negative. Cardiovascular: Negative. Gastrointestinal: Negative. Endocrine: See hpi Genitourinary: Negative. Musculoskeletal: Negative. Skin: Negative. Neurological: Negative. Psychiatric/Behavioral: Negative. Objective Physical Exam Constitutional: Appearance: Normal appearance. HENT: Head: Normocephalic. Right Ear: External ear normal. Left Ear: External ear normal. Nose: Nose normal. Cardiovascular: Rate and Rhythm: Normal rate. Pulmonary: Effort: Pulmonary effort is normal. Musculoskeletal: General: Normal range of motion. Cervical back: Normal range of motion. Skin: General: Skin is warm and dry. Neurological: Mental Status: She is alert and oriented to person, place, and time. Psychiatric: Mood and Affect: Mood normal. Behavior: Behavior normal. Thought Content: Thought content normal. Judgment: Judgment normal. Lab Review Glucose, Plasma (mg/dL) Date Value 03/29/2019 322 (H) 04/06/2018 150 (H) 09/20/2017 589 (HH) POCT Hemoglobin A1C Date Value 09/13/2022 5.1 % 05/13/2022 4.8 % 12/21/2021 5.5 % 11/26/2020 6.1 07/30/2020 5.0 04/28/2020 5.4 CO2, Plasma (mmol/L) Date Value 03/29/2019 21 (L) 04/06/2018 18 (L) 09/20/2017 20 (L) BUN, Plasma (mg/dL) Date Value 03/29/2019 34 (H) 04/06/2018 22 (H) 09/20/2017 28 (H) Creatinine, Plasma (mg/dL) Date Value 06/18/2021 3.69 (H) 05/15/2021 3.83 (H) 05/11/2021 3.74 (H) 03/29/2019 3.56 (H) 04/06/2018 1.85 (H) 09/20/2017 1.65 (H) Assessment/Plan Diabetes Mellitis Type 1, is controlled. A1C at goal with improved hypoglycemia Rx changes: none -Reviewed pump download with patient and reviewed instances of basal IQ pump suspension when detecting imminent hypoglycemia or active hypoglycemia, recommended patient allow pump to continue these rather than manual suspensions; also reviewed hypoglycemia management when utilizing pump suspension technology as there are several patterns of overcorrection requiring follow up bolus, patient understanding and agreeable -Discussed PD vs HD effects on blood glucose -Continue using CGM to test BG 4+ times daily, discussed methods to improve adherence to skin, receives Dexcom through DME, refilled backup meter supplies for use as needed in CGM failure -Routine labs up to date and monitored by nephrology -Encouraged annual eye exam -Follow up 3 months #Nephropathy/ESRD -Now requiring PD, followed by nephrology -Reviewed role of good blood glucose and blood pressure control in renal function #Retinopathy -History of retinopathy, declines regular eye exams -She is aware of the risks associated with untreated retinopathy #HTN -Uncontrolled, blood pressure today: 157/87 -continue antihypertensives as prescribed, reviewed PD role in blood pressure control -encouraged daily bp check # Hyperlipidemia -Stable, continue on statin, patient reports compliance The following Diabetes education was reviewed: [x]SBGM to evaluate dose needs [x]Insulin coverage with carbohydrate intake [x]Site rotation [] Exercise impact on glucose levels []Driving safety related to diabetes []Sick day management [x]Ketone testing [x]Over treatment of hypoglycemia [x] Hypoglycemia management [x]Call-in line use []Insulin pump pros and cons [x]Sensor home use []Pump class offerings []Beth phenomena []Somogyi effect [] Alcohol related to diabetes []Benefits of written records [x]Pre-meal Bolusing []Daily foot care [] Healthy diet and regular exercise [x]Long-term complications related to poor diabetes management [] Injection timing related to changes in activity/exercise -Time spent with pt does not include time spent reviewing cgm. I personally spent a total of 25 minutes on this encounter. This time includes face to face with patient, counseling and discussion and/or coordination of care. Electronically signed by: ANDREA Kumari [facility] ENDOCRINOLOGY [address] [place]. [address] PHONE [phone] FAX: [phone] documented in this encounter Plan of Treatment Upcoming Encounters Date Type Department Care Team (Late st Contact Info) Description 08/28/2024 11:00 AM EST Office Visit [facility] Endocrinology [facility] [address] [place] [address] Erica Ventura PA [address] [place] [address] documented as of this encounter Procedures Procedure Name Priority Date/Time Associated Diagnosis Comments POCT GLYCOSYLATED HEMOGLOBIN (HGB A1C) Routine 09/13/2022 1:08 PM EST Type 1 diabetes mellitus with other specified complication (CMS/HCC) documented in this encounter Results * POCT glycosylated hemoglobin (Hb A1C) docked device (09/13/2022 1:08 PM EST) POCT Hemoglobin A1C 5.1 4.4-6.6 % % [employer] [facility] Kit Lot Number n/a [facility] Kit Expiration Date n/a [employer] LAB Blood Venous blood specimen / Unknown 09/13/2022 1:08 PM EST Erica MENDEZ POINT OF CARE TEST EN TER/EDIT ORDERABLES Final Result Performing Organization Address City/State/[facility] Co de Phone Number [facility] [address] [place] [address] documented in this encounter Visit Diagnoses Diagnosis Type 1 diabetes mellitus with other specified complication (CMS/HCC)- Primary End-stage renal disease (CMS/HCC) 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 (CMS/HCC) Essential hypertension Unspecified essential hypertension Hyperlipidemia, unspecified hyperlipidemia type Insulin pump in place Insulin pump status documented in this encounter Additional Health Concerns Assessment Noted Time A fall risk assessment has been complete d for the patient 09/13/2022 1:03 PM EST A Body Mass Index follow-up plan has been documented for the patient 09/13/2022 1:44 PM EST documented as of this encounter Care Teams Vice President Integrated Relationship Specialty Start Date End Date Jaquan Conley MD [address] [place] [address] PCP - General 11/28/20 documented as of this encounter
--- OUTSIDE RECORDS SUMMARY | 2024-05-30 08:39 | XMS_ITS ---
Author Organization [facility] Address [address] [place] [address] Care Team Providers Care College Or University Registrar Name Role Phone Jaquan Conley MD Primary Care Provider + [phone] Transplant Episode Kidney Candidate [facility] ([place], [place]) [facility] Evaluation began on 08/17/2018 Marked as Ineligible on 11/10/2018 Reason: Candidate Workup Incomplete Kidney CoordinatorHilaria Hsu RN Phone: N/A Fax: N/A Email: N/A Scores Score Value Updated Exceptions/Reas ons CPRA Not available EPTS (Calc) 16 05/30/2024 Care Team Name Role Phone Fax Email Hilaria Hsu RN Kidney Coordinator N/A N/A N/A Crys Gilman Header Operator N/A N/A N/A Mukul Stevens MD Referring Physician N/A N/A N/A Events Pre-Transplant Referred: 07/24/2018 Evaluation began: 08/17/2018
--- OUTSIDE RECORDS SUMMARY | 2024-05-30 08:39 | XMS_ITS | Encounter Summary ---
Author Organization [facility] Address [address] [place] [address] Care Team Providers Care Padded Products Finisher Name Role Phone Jaquan Conley MD Primary Care Provider + [phone] Encounter Details Date Type Department Care Team (Latest Contact Info) Description 09/11/2021 Travel Social History Tobacco Use Types Packs/Day [...] Exposure Response Date Recorded In the last month, have you been in contact with someone who was confirmed or suspected to have Coronavirus / COVID-19? No / Unsure 09/11/2021 7:31 AM EST documented as of this encounter Plan of Treatment Upcoming Encounters Date Type Department Care Team (Late st Contact Info) Description 08/28/2024 11:00 AM EST [facility] Endocrinology [address] , [address] [place] [address] Erica Ventura PA [address] [place] [address] documented as of this encounter Visit Diagnoses Not on filedocumented in this encounter Care Teams Padded Products Finisher Relationship Specialty Start Date End Date Jaquan Conley MD [address] [place], [place] [id number] PCP - General 11/28/20 documented as of this encounter
--- OUTSIDE RECORDS SUMMARY | 2024-05-30 08:39 | XMS_ITS | Encounter Summary ---
Author Organization [facility] Address [address] [place] [address] Care Team Providers Care Bill Recapitulation Clerk Name Role Phone Jaquan Conley MD Primary Care Provider + [phone] Reason for Visit * Reason Comments Med Refill Encounter Details Date Type Department Care Team (Late st Contact Info) Description 04/26/[address] [facility] [address], [address] [place] [address] Julisa Morales, FISHING TOOL OPERATOR [address] [facility] [address] [place] [address] Type 1 diabetes mellitus without complication (CMS/HCC) (Primary Dx) Social History Tobacco Use Types [...] Description 08/28/2024 11:00 AM EST [facility] [address], [address] [place] [address] Erica Ventura, PA [address] [facility] [address] [place] [phone] documented as of this encounter Visit Diagnoses Diagnosis Type 1 diabetes mellitus without complication (CMS/HCC)- Primary Type I (juvenile type) diabetes mellitus without mention of complication, not stated as uncontrolled documented in this encounter Care Teams Bill Recapitulation Clerk Relationship Specialty Start Date End Date Jaquan Conley MD [address] [place] [id number] PCP - General 11/28/20 documented as of this encounter
--- OUTSIDE RECORDS SUMMARY | 2024-05-30 08:39 | XMS_ITS | Encounter Summary ---
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) (Primary Dx) Social History Tobacco Use [...] as of this encounter Miscellaneous Notes * Progress Notes - Mesha Patton RN - 11/17/2022 2:28 PM EDT C-peptide documented in this encounter Plan of Treatment Upcoming Encounters Date Type Department Care Team (Late st Contact Info) Description 08/28/2024 11:00 AM EST Office Visit [facility] Endocrinology [address], [address] [place] [address] Erica Ventura PA [address] [place] [address] documented as of this encounter Results * (ABNORMAL) Basic metabolic panel (12/16/2022 1:40 PM EDT) Glucose, Plasma 139(H) 74 - 99 mg/dL 12/16/2022 6:47 PM EDT [facility] BUN, Plasma 42(H) 7 - 21 mg/dL 12/16/2022 6:47 PM EDT [facility] Creatinine, Plasma 5.82(H) 0.60 - 1.10 mg/dL 12/16/2022 6:47 PM EDT [facility] BUN/Creatinine Ratio 7 12/16/2022 6:47 PM EDT [facility] Sodium, Plasma 141 136 - 145 mmol/L 12/16/2022 6:47 PM EDT [facility] Potassium, Plasma 5.3(H) 3.7 - 4.8 mmol/L 12/16/2022 6:47 PM EDT [facility] Chloride, Plasma 105 97 - 107 mmol/L 12/16/2022 6:47 PM EDT [facility] CO2, Plasma 22 22 - 29 mmol/L 12/16/2022 6:47 PM EDT [facility] Anion Gap 14 6 - 16 mmol/L 12/16/2022 6:47 PM EDT [facility] Total Calcium, Plasma 8.0(L) 8.9 - 10.2 mg/dL 12/16/2022 6:47 PM EDT [facility] eGFRcr 9.2 mL/min/1.7 3m*2 12/16/2022 6:47 PM EDT [facility] Comment: Reported eGFRcr in mL/min/1.73m2 is based the CKD-EPI 2021 equation that does not use a race coefficient. Effective 02/10/22 our laboratory changed the eGFR calculation to the CKD-EPI 2021 equation from the previously reported eGFR, based on the MDRD equation. ??For comparisons between the two equations, please see laboratory website: ??[email or web address] Blood Venous blood specimen / Unknown Venipuncture / Unknown 12/16/2022 1:40 PM EDT 12/16/2022 3:27 PM EDT Erica MENDEZ LAB BLOOD ORDERABLES Final Result Performing Organization Address [facility] de Phone Number [facility] [address] [place] [address] * (ABNORMAL) C-peptide (12/16/2022 1:40 PM EDT) [facility] Signature C Peptide 10.43(H) 0.81 - 5.30 ng/mL 12/16/2022 7:17 PM EDT [facility] Comment:To be drawn concurre ntly with basic metabolic pane Blood Venous blood specimen / Unknown Venipuncture / Unknown 12/16/2022 1:40 PM EDT 12/16/2022 3:27 PM EDT Erica MENDEZ LAB BLOOD ORDERABLES Final Result Performing Organization Address [facility] de Phone Number [facility] [address] [place] [address] documented in this encounter Visit Diagnoses Diagnosis 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
--- OUTSIDE RECORDS SUMMARY | 2024-05-30 08:39 | XMS_ITS | Encounter Summary ---
Author Organization [facility] Address [address] [place] [id number] Care Team Providers Care Director Of Staff Development Name Role Phone Jaquan Conley MD Primary Care Provider + [phone] Reason for Visit * Reason Comments Med Refill Encounter Details Date Type Department Care Team (Late st Contact Info) Description [facility]/04[facility]20[facility] [address], [address] [place] [phone] Ulises Tran RN [address] [place] [address] Type 1 diabetes mellitus with mild nonproliferative retinopathy without macular edema, unspecified laterality (CMS/HCC) (Primary Dx) Social History Tobacco Use [...] Description 08/28/2024 11:00 AM EST [facility] [address], [address] [place] [address] Erica Ventura PA [address] [place] [address] documented as of this encounter Visit Diagnoses Diagnosis Type 1 diabetes mellitus with mild 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
--- OUTSIDE RECORDS SUMMARY | 2024-05-30 08:39 | XMS_ITS | Encounter Summary ---
Author Organization [facility] Address [address] [place] [address] Care Team Providers Care Mannequin Coloring Artist Name Role Phone Jaquan Conley MD Primary Care Provider + [phone] Encounter Details Date Type Department Care Team (Latest Contact Info) Description 05/13/2022 Travel Social History Tobacco Use Types Packs/Day [...] suspected to have Coronavirus/COVID-19? No / Unsure 05/13/2022 12:38 PM EDT documented as of this encounter Plan of Treatment Upcoming Encounters Date Type Department Care Team (Late st Contact Info) Description 08/28/2024 11:00 AM EST [facility] End[facility] [address] [place] [address] Erica Ventura PA [address] [place] [address] documented as of this encounter Visit Diagnoses Not on filedocumented in this encounter Additional Health Concerns Assessment Noted Time A fall risk assessment has been complete d for the patient 12/21/2021 12:59 PM EDT documented as of this encounter Care Teams Mannequin Coloring Artist Relationship Specialty Start Date End Date Jaquna Conley MD [address] [place], [place] [phone] PCP - General 11/28/20 documented as of this encounter
--- OUTSIDE RECORDS SUMMARY | 2024-05-30 08:39 | XMS_ITS | Encounter Summary ---
Author Organization [facility] Address [address] [place] [address] Care Team Providers Care Milk Runner Name Role Phone Jaquan Conley MD Primary Care Provider + [phone] Encounter Details Date Type Department Care Team (Late st Contact Info) Description 10/18/2018 [facility] [address] [place] [address] Yris Schwarz, RN [facility] Social History Tobacco Use Types Packs/Day Years Used Date Smoking Tobacco: Never Assessed Comments Unknown Sex and Gender Information Value Date Recorded Sex Assigned at Not on file Legal Sex Female 6:07 PM EDT Gender Identity Not on file Sexual Orientation Not on file documented as of this encounter Miscellaneous Notes * Progress Notes - Yris Schwarz - 10/18/2018 9:53 AM EDT SW evaluation reviewed. Manipulative, impulsive, non adherence. Needs to see [facility] prior to moving forward. If refuses, then not a candidate. * Progress Notes - Jeannine Tinajero - 08/16/2018 2:18 PM EST ICE: 27 yo CF w/ CKD 2/2 diabetic nephropathy and segmental glomerulosclerosis per biopsy. PMH: CKD Diabetes- A1C 8.4, down from 14 Hypertension Retinopathy Neuropathy Tobacco abuse Obesity Anemia Dyslipidemia PSH: ???2 Kidney biopsy Social history: She is currently from her , lives with her fikaylyn who would be her caregiver following transplant. She is a former 1-2 pack-a-day smoker for 20 years, now down to half pack a day plusvaping. She denies any alcohol use. She is a former user of marijuana, quit in 2007. No history of blood transfusions. No miscarriages. PE: BMI 37.4 RRR, lungs clear. Central obesity, protuberant abd, prohibitive. No edema. DP 2+ b/l. REC: We will need to obtain kidney biopsy results. She will need weight loss, and is open to being referred to Dr. Galindo, medical weight loss specialist. Additionally, she'll need better diabetes control, and to stop smoking as well as E cigarettes prior to being listed for transplant. It is noted in nephrology clinic note that she left [facility] after admission for increasing creatinine and e. coli UTI, consider starting with social work. She also initially stated didn't want to pursue kidney transplant if she couldn't get a pancreas at same time. * Progress Notes - Hilaria Hsu - 08/16/2018 9:25 AM EST Start eval with ; pt left [facility] records. Pt has been 5 times; has 2 children, one of which is in [place] with her latest . documented in this encounter Plan of Treatment Upcoming Encounters Date Type Department Care Team (Late st Contact Info) Description 08/28/2024 11:00 AM EST Office Visit [facility] Endocrinology [address] [place] [address] Erica Ventura PA [address] [place] [address] documented as of this encounter Visit Diagnoses Not on filedocumented in this encounter Care Teams Milk Runner Relationship Specialty Start Date End Date Jaquan Conley MD [address] [place], [place] [phone] PCP - General 11/28/20 documented as of this encounter
--- OUTSIDE RECORDS SUMMARY | 2024-05-30 08:39 | XMS_ITS | Encounter Summary ---
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 female who presents for an follow up evaluation of Diabetes Mellitis Type 1. Patient was diagnosed 19 years ago. Current symptoms/problems include hyperglycemia. History CKD 4- followed by [facility] transplant team- on transplant list, neuropathy, retinopathy, multiple DKA, non-compliance Patient Verification Patient identity has been confirmed using name and date of ? Yes Authorizations and Agreements/Telemedicine Consent sent and consent confirmed? Yes Patient Location: Patient's Home Patient confirms they are physically located in [place]? Yes If the patient is not physically located in [place], the provider has confirmed with Legal thatthe provider is authorized to provide services in patient's stated location? N/A Provider Location: Provider's Home Audio and video or audio only? Audio and video Total visit time: 22 minutes HPI -last A1C: 6.1% 9 months ago Current treatment includes insulin pump Tandem and dexcom , no pump and dexcom download for review Known diabetic complications: nephropathy, retinopathy and peripheral neuropathy Compliance at present is estimated to be good. Cardiovascular risk factors: diabetes mellitus, dyslipidemia, hypertension and smoking/ tobacco exposure Is she on KAYLAH inhibitor or angiotensin II receptor amara? No Is she on a StatinYes Current diet: {diet habits: reports eating protein shakes and taking multivitamins, reports doesn'teat much as feels sick after gastric sleev Current exercise: {exercise types:walking Home blood sugar records: checking 2-3x/day, awaiting more dexcom supplies, reports blood glucose avg 180, occasional lows if not eating -Eye exam: within one year, history retinopathy, past laser treatment -Foot exam: history neuropathy, denies sores -Labs: Jun 2021 -had gastric sleeve December 2019 The following portions of the chart were reviewed this encounter and updated as appropriate: Tobacco Allergies Meds Problems Med Hx Surg Hx Fam Hx Review of Systems Constitutional: Negative. HENT: Negative. Eyes: Negative. Respiratory: Negative. Cardiovascular: Negative. Gastrointestinal: Negative. Endocrine: See hpi Genitourinary: Negative. Musculoskeletal: Negative. Skin: Negative. Neurological: Negative. Psychiatric/Behavioral: Negative. Objective Physical Exam Constitutional: Appearance: Normal appearance. HENT: Nose: Nose normal. Pulmonary: Effort: Pulmonary effort is normal. Musculoskeletal: Cervical back: Normal range of motion. Neurological: Mental Status: She is alert and oriented to person, place, and time. Psychiatric: Mood and Affect: Mood normal. Behavior: Behavior normal. Thought Content: Thought content normal. Judgment: Judgment normal. Lab Review Glucose, Plasma (mg/dL) Date Value 03/29/2019 322 (H) 04/06/2018 150 (H) 09/20/2017 589 (HH) POCT Hemoglobin A1C (no units) Date Value 11/26/2020 6.1 07/30/2020 5.0 04/28/2020 5.4 CO2, Plasma (mmol/L) Date Value 03/29/2019 21 (L) 04/06/2018 18 (L) 09/20/2017 20 (L) BUN, Plasma (mg/dL) Date Value 03/29/2019 34 (H) 04/06/2018 22 (H) 09/20/2017 28 (H) Creatinine, Plasma (mg/dL) Date Value 03/29/2019 3.56 (H) 04/06/2018 1.85 (H) 09/20/2017 1.65 (H) Assessment/Plan Diabetes Mellitis Type 1, is uncontrolled. Rx changes: none, continue current pump settings -no adjustments without blood glucose, pump download for review -she reports thing s going ok and she often adjusts her pump settings herself -A1C ordered -follow up: 3 months FTF Retinopathy -Encouraged yearly eye exam, good blood glucose control ?? CKD - f/u with transplant as scheduled -recommend good blood glucose control ?? HTN -continue antihypertensives per primary care provider HLD -stable on statin, no myalgias, continue per PCP ?? The following Diabetes education was reviewed: [x]SBGM to evaluate dose needs []Insulin coverage with carbohydrate intake []Site rotation [] Exercise impact on glucose levels []Driving safety related to diabetes []Sick day management []Ketone testing []Over treatment of hypoglycemia [] Hypoglycemia management [x]Call-in line use []Insulin pump pros and cons [x]Sensor home use []Pump class offerings []Beth phenomena []Somogyi effect [] Alcohol related to diabetes []Benefits of written records []Pre-meal Bolusing []Daily foot care [x] Healthy diet and regular exercise []Long-term complications related to poor diabetes management [] Injection timing related to changes in activity/exercise I personally spent a total of minutes on this encounter. This time includes face to face with patient, counseling and discussion and/or coordination of care. Electronically signed by: Erica Izquierdo APRN [facility] [address] [place]. 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 (CMS/HCC)- Primary Essential hypertension Unspecified essential hypertension Hyperlipidemia, unspecified hyperlipidemia type Retinopathy Unspecified background retinopathy Nephropathy Nephritis and nephropathy, not specified as acute or chronic, with unspecified pathological lesion in kidney Type 1 diabetes mellitus with mild nonproliferative retinopathy without macular edema, unspecified laterality (CMS/HCC) documented in this encounter Care Teams Kst Operator Relationship Specialty Start Date End Date Jaquan Conley MD [address] [place] [address] PCP - General 11/28/20 documented as of this encounter
--- OUTSIDE RECORDS SUMMARY | 2024-05-30 08:39 | XMS_ITS | Encounter Summary ---
Author Organization [facility] Address [address] [place] [address] Care Team Providers Care Professional Organizer Name Role Phone Jaquan Conley MD Primary Care Provider + [phone] Encounter Details Date Type Department Care Team (Late st Contact Info) Description [facility]24 [facility] [address], [address] [place] [address] Marilyn Valencia, POLICE OFFICER BOOKING [address] [facility] [address] [place] [address] Social History Tobacco Use Types Packs/Day Years [...] encounter Miscellaneous Notes * Telephone Encounter - Elzbieta Christian RD - 01/27/2024 3:17 PM EDT Contacted pharmacy- message was regarding test strips frequency. Provided frequency of testing 3 times daily. documented in this encounter Plan of Treatment Upcoming Encounters Date Type Department Care Team (Late st Contact Info) Description 08/28/2024 11:00 AM EST Office Visit [facility] [address], [address] [place] [address] Erica Ventura PA [address] [place] [address] documented as of this encounter Visit Diagnoses Not on filedocumented in this encounter Additional Health Concerns Assessment Noted Time A fall risk assessment has been complete d for the patient 06/20/2023 12:51 PM EST A Body Mass Index follow-up plan has been documented for the patient 01/27/2024 1:29 PM EDT documented as of this encounter Care Teams Professional Organizer Relationship Specialty Start Date End Date Jaquan Conley MD [address] [place] [address] PCP - General 11/28/20 documented as of this encounter
--- OUTSIDE RECORDS SUMMARY | 2024-05-30 08:39 | XMS_ITS | Encounter Summary ---
Author Organization [facility] Address [address] [place] [address] Care Team Providers Care Credit Or Loans Officer Name Role Phone Unavailable Primary Care Provider Unavailabl e Encounter Details Date Type Department Care Team (Late Contact Info) Description 06/12/2018 [facility] Encounter [facility] OPHTHALMOLOGY [address] [place] [address] Joey Anderson MD [address] [facility] [address] [place] [address] Social History Tobacco Use Types Packs/Day Years [...] [facility] [address] [place] [phone] Erica Ventura PA [address] [place] [address] documented as of this encounter Visit Diagnoses Not on filedocumented in this encounter
--- OUTSIDE RECORDS SUMMARY | 2024-05-30 08:39 | XMS_ITS | Encounter Summary ---
Author Organization [facility] Address [address] [place] [address] Care Team Providers Care Rx Specialist Name Role Phone Jaquan Conley MD Primary Care Provider + [phone] Encounter Details Date Type Department Care Team (Late st Contact Info) Description 06/20/2023 1:20 PM EST Office Visit [facility] [address], [address] [place] [address] Erica Ventura PA [address] [place] [address] Type 1 diabetes mellitus with other specified complication (CMS/HCC) (Primary Dx); End-stage renal disease (CMS/HCC); 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 female who presents for an follow up evaluation of Diabetes Mellitis Type 1. Patient was diagnosed at age 12 . Current symptoms/problems include hyperglycemia. History noncompliance, substance abuse, multiple DKA events, CKD5/ESRD, Tobacco Abuse, December 2019- Gastricsleeve for wt loss-> dropped from 390's to 138 pounds Diabetes Today A1c 5.1% from 5.3% from 5.1% from 4.8% 05/08 from 5.5% 12/2021 -After last office visit, patient obtained a c-peptide in order to replace her pump. Her c-peptide was found to be elevated, indicating a T2DM process given consistent use of insulin and near goal blood glucose. -Stopped wearing her Tandem and Dexcom CGM due to issues with adhesive and abdominal sites now thaton peritoneal dialysis and must keep things at distance from this site. She notes trying to rotate CGM to her arms but having sensors come off, exceeded allotted amount of sensor replacements from Dexcom customer service so discontinued use due to -She is on [facility] renal transplant list, states is going to try to be placed on 's transplant list Current treatment includes insulin injections -No basal insulin since discontinuing pump several months ago -CHO ratio 1:5 g plus CF 1:20 >140, using Novolog vials Known diabetic complications: nephropathy,peripheral neuropathy, and Retinopathy Compliance at present is estimated to be good. Cardiovascular risk factors: diabetes mellitus, dyslipidemia, hypertension and smoking/ tobacco exposure Is she on KAYLAH inhibitor or angiotensin II receptor amara? No ESRD on PD Is she on a StatinYes Current diet: {diet habits:in general, an unhealthy diet and on average, 1 meals per day restricting phosphorous Current exercise: {exercise types:no regular exercise Home blood sugar records: Not wearing CGM, doing FSBG 4+ times daily, no data to review today. She reports blood glucose has not been averaging >150, prefers to run 140s. -Hypoglycemic events:Yes, on occasion, hypoglycemia awareness intact -Severe Hypoglycemic events: Denies -DKA events: Yes, multiple events, none recent Date of Last Eye Exam: 12/07 Date of Last Foot Exam: What current meter are you using?: onetouch When was your last flu shot?: 05/09 When did you have labs last?: 06/20/23 The following portions of the chart were [...] Lab Review Glucose, Plasma (mg/dL) Date Value 12/16/2022 139 (H) 03/29/2019 322 (H) 04/06/2018 150 (H) POCT Hemoglobin A1C Date Value 06/20/2023 5.1 12/16/2022 5.3 % 09/13/2022 5.1 % 11/26/2020 6.1 07/30/2020 5.0 04/28/2020 5.4 Hemoglobin A1c (%) Date Value 03/15/2023 5.9 (H) CO2, Plasma (mmol/L) Date Value 12/16/2022 22 03/29/2019 21 (L) 04/06/2018 18 (L) BUN, Plasma (mg/dL) Date Value 12/16/2022 42 (H) 03/29/2019 34 (H) 04/06/2018 22 (H) Creatinine, Plasma (mg/dL) Date Value 12/16/2022 5.82 (H) 06/18/2021 3.69 (H) 05/15/2021 3.83 (H) 05/11/2021 3.74 (H) 03/29/2019 3.56 (H) 04/06/2018 1.85 (H) Assessment/Plan Diabetes Mellitis Type 2, is controlled. A1C at goal. Did discuss her A1C is unreliable due to ESRDand would go by her blood glucose data to determine true blood glucose control, patient understanding and agreeable. Rx changes: none, continue current regimen, refilled Novolog vials per patient preference -On discussion with patient, she was on basal/bolus regimen with pump prior to bariatric surgery and significant weight loss (around 230 lbs) when treated as T1DM. However, since this time, she has struggled consistently with hypoglycemia despite low insulin requirements, which correlates with decreasing insulin resistance and thus insulin requirements also decreased. Given this and her high c-peptide, I do feel patient's disease pathology coordinates with T2DM with decreased insulin resistances/p bariatric surgery, as she reports maintaining blood glucose control with Novolog use only and no basal for at least past 4 months, no data to review today to confirm, no antibody results on chartreview, will reassess at next visit. -Did discuss if truly T1DM diagnosis, would need at least small dose of basal insulin daily, patient understanding. -Restart using CGM to test BG 4+ times daily, previously received Dexcom through DME with Medicare,now on [place] medicaid, Dexcom G7 prescription sent today, reviewed new use and demo for patient today,aware must keep on subcutaneous arm sites per approval and for site rotation, discussed methods to improve adhesion, patient understanding and agreeable. -Unable to make significant changes to diabetes regimen with no blood glucose data to review today. -Routine labs up to date and monitored by nephrology for dialysis -annual eye exam up to date, see media for report -Follow up 3 months #Nephropathy/ESRD on PD -requiring PD daily, followed by nephrology -Reviewed role of good blood glucose and blood pressure control in preserving renal function #Retinopathy -stable, following [facility], no recent vision changes -continue regular eye exams -She is aware of the risks associated with untreated retinopathy -continue good blood pressure and blood glucose control #HTN -controlled, blood pressure today: 131/85 -continue antihypertensives per nephrology The following Diabetes education was reviewed: [x]SBGM to evaluate dose needs [x]Insulin coverage with carbohydrate intake [x]Site rotation [] Exercise impact on glucose levels [x]Driving safety related to diabetes []Sick day management []Ketone testing [x]Over treatment of hypoglycemia [x] Hypoglycemia [...] cgm. I personally spent a total of 34 minutes on this encounter. This time includes face to face with patient, counseling and discussion and/or coordination of care. Electronically signed by: ANDREA Kumari [facility] [address] [place]. [address] PHONE [phone] FAX: [phone] documented in this encounter Plan of Treatment Upcoming Encounters Date Type Department Care Team (Late st Contact Info) Description 08/28/2024 11:00 AM EST [facility] [address] [facility], [address] [place] [address] Erica Ventura PA [address] [facility] [address] [place] [phone] documented as of this encounter Procedures Procedure Name Priority Date/Time Associated Diagnosis Comments POCT GLYCOSYLATED HEMOGLOBIN (HGB A1C) Routine 06/20/2023 12:56 PM EST Type 1 diabetes mellitus with other specified complication (CMS/HCC) documented in this encounter Results * POCT glycosylated hemoglobin (Hb A1C) docked device (06/20/2023 12:56 PM EST) POCT Hemoglobin A1C 5.1 <5.7% Non-Diabet ic [facility] Kit Lot Number [id number] [facility] Kit Expiration Date 02/14/25 [facility] Blood Venous blood specimen / Unknown 06/20/2023 12:56 PM EST us Erica MENDEZ POINT OF CARE TEST EN TER/EDIT ORDERABLES Final Result [facility] [address] [place] [address] documented in this encounter Visit Diagnoses Diagnosis Type 1 diabetes mellitus with other specified complication (CMS/HCC)- Primary End-stage renal disease (CMS/HCC) 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
--- OUTSIDE RECORDS SUMMARY | 2024-05-30 08:39 | XMS_ITS | Encounter Summary ---
Author Organization [facility] Address [address] [place] [address] Care Team Providers Care Sales And Marketing Specialist Name Role Phone Jaquan Conley MD Primary Care Provider + [phone] Encounter Details Date Type Department Care Team (Late st Contact Info) Description 07/30/2020 [facility] Encounter [facility] [address] [facility], [address] [place] [address] Provider, MD Laury [address] [place] [address] Social History Tobacco Use Types Packs/Day [...] Description 08/28/2024 11:00 AM EST Office Visit [facility] [address] [facility], [address] [place] [address] Erica Ventura PA [address] [facility] [address] [place] [address] documented as of this encounter Procedures Procedure Name Priority Date/Time Associated Diagnosis Comments POCT GLYCOSYLATED HEMOGLOBIN (HGB A1C) Routine 11/26/2020 1:12 PM EDT POCT GLYCOSYLATED HEMOGLOBIN (HGB A1C) Routine 07/30/2020 1:12 PM EST POCT GLYCOSYLATED HEMOGLOBIN (HGB A1C) Routine 04/28/2020 4:06 PM EDT documented in this encounter Results * [facility] Hemoglobin A1C (11/26/2020 1:12 PM EDT) POCT Hemoglobin A1C 6.1 [facility] 11/26/2020 1:12 PM EDT Narrative [facility] - 11/26/2020 1:12 PM EDT Resulting Agency - AEHR POC [[facility] [place]] us Historical Provider MD POINT OF CARE TEST ENTER/ EDIT ORDERABLES Final Result Performing Organization Address City/[facility]/ZIP Co de Phone Number [facility] [address] [place] [address], [place] * [facility] Hemoglobin A1C (07/30/2020 1:12 PM EST) POCT Hemoglobin A1C 5.0 [facility] 07/30/2020 1:12 PM EST Narrative [facility] - 07/30/2020 1:12 PM EST Resulting Agency - AEHR POC [[facility] [place]] us Historical Provider MD POINT OF CARE TEST ENTER/ EDIT ORDERABLES Final Result [facility] [address] [place] [address] [address] [place] [address], [place] * [facility] Hemoglobin A1C (04/28/2020 4:06 PM EDT) POCT Hemoglobin A1C 5.4 [facility] 04/28/2020 4:06 PM EDT Narrative [facility] [place] - 04/28/2020 4:06 PM EDT Resulting Agency - AEHR POC [[facility] End[facility]in[facility] [place]] us Historical Provider POINT OF CARE TEST ENTER/ EDIT ORDERABLES Final Result [facility] [place] [address] [facility] [address] ADULT [address] documented in this encounter Visit Diagnoses Not on filedocumented in this encounter Care Teams Sales And Marketing Specialist Relationship Specialty Start Date End Date Jaquan Conley MD [address] [place] [address] PCP - General 11/28/20 documented as of this encounter
--- OUTSIDE RECORDS SUMMARY | 2024-05-30 08:39 | XMS_ITS | Encounter Summary ---
Author Organization [facility] Address [address] [place] [address] Care Team Providers Care Botanical Technical Officer Name Role Phone Jaquan Conley MD Primary Care Provider + [phone] Encounter Details Date Type Department Care Team (Late st Contact Info) Description 11/10/2018 [facility] Encounter HISTORICAL OTTR [address] [place] [address] Yris Schwarz, RN [facility]-TRANSPLANT ADMINISTRATION Social History Tobacco Use Types Packs/Day Years Used Date Smoking Tobacco: Never Assessed Comments Unknown Sex and Gender Information Value Date Recorded Sex Assigned at Not on file Legal Sex Female 6:07 PM EDT Gender Identity Not on file Sexual Orientation Not on file documented as of this encounter Miscellaneous Notes * Progress Notes - Yris Schwarz - 11/10/2018 4:29 PM EDT Contacted patient to confirm that she does wish to cancel her evaluation and close her referral here at . She stated she is going to [facility] because they told her she can continue smoking since she does not have any CV disease. Informed her that is our policy as well, however due to her DM this leander risk for CV disease and that is why she is required to quit at our center. She stated they know about it and said nothing. Confirmed understanding and informed her that I will close her evaluation. She is aware she can call back should she change her mind. * Progress Notes - Indira Márquez - 11/10/2018 1:10 PM EDT Pt's 11/24/18 psych consult has been canceled in APM; updated OTTR. * Progress Notes - Daisy Gaming - 11/10/2018 10:50 AM EDT SW received message from [facility] home care scheduler that the pt contacted her to cancel psych appt, as she has decided to pursue listing at [facility], instead of . Note to Coord. and Casing Runner for awareness. * Progress Notes - Indira Márquez - 11/09/2018 4:12 PM EDT Mailed 11/24/18 [facility] eval appt schedule w/ map to pt. * Progress Notes - Daisy Gaming - 11/08/2018 8:09 AM EDT Per [facility] Casing Runner, pt has an appt with [facility] on 11/24/18 at 1:30 pm. Note to Coordinator andCarloz for awareness. * Progress Notes - Daisy Gaming - 11/02/2018 11:14 AM EDT [facility] has sent another email following up on psych eval referral. SW will continue to follow. * Progress Notes - Daisy Gaming - 10/26/2018 3:02 PM EDT [facility] has sent another email to follow up on request for psych eval appt. [facility] will continue to follow. * Progress Notes - Daisy Gaming - 10/20/2018 9:03 AM EDT has emailed request for psychiatric evaluation to Dr. Perry and his schedulers. SW will continue to follow. * Progress Notes - Hilaria Hsu - 10/19/2018 1:13 PM EDT Patient returned call. We discussed committee decision to not move forward with evaluation until patient has been seen and evaulated by psychiatrist. Ms. Archer asks if she can be seen locally. Advised that at the very least, her initial consult/evaluation will need to be through . Patient states she is agreeable and requests appt be made between 9 and 12 due to director of early childhood issues. Forwarding communication to . * Progress Notes - Hilaria Hsu - 10/18/2018 11:23 AM EDT LVM with pt to return call to discuss committee meeting * Progress Notes - Daisy Gaming - 10/17/2018 3:52 PM EDT evaluation completed 10/17/18 and full documentation is in SCM. Pt is not a candidate for a kidney transplant at this time. She exhibits impulsive and manipulativebehaviors (multiple brief marriages, jobs lasting from 3 days to 6 months, cutting off arm cast 4 hours after it was applied because she didn't like it, moodiness/rage when her fiancee doesn't 'use the right towel.') She does not drive, has no income, is totally supported by her fiancee, and has noplans/desires to be self-sufficient to support a transplant in the future. Pt considers herself to be OCD, and prides herself on being very clean, organized, and in control. However, the pt was visibly unclean, was not sure of any of the names of her meds, and has documented nonadherence with DM man agement. Pt is aware that the SW is going to require a psychiatric eval to assess for any untreatedmental illness based on her past behaviors, as well as therapy to work on coping mechanisms as her only coping skills at this time are smoking and eating 'tater chips.' During the discussion of this requirement, the pt became very annoyed with the SW and refused to go to psychiatry staying that she knows herself and knows she won't talk to anyone. When the SW did not back down from this and told her she was welcome to talk to another transplant center, she reluctantly reports that she will think about psych/therapy. She later states that she will probably go to see if they can help her quitsmoking. However, pt is also considering going to [facility] since she was told they are less strict. SW will discuss concerns with the team in committee. * Progress Notes - Indira Márquez - 09/19/2018 11:11 AM EST Received call from pt confirming 10/17/18 SW consult @ 0830. Mailed updated appt schedule w/ map and caregiver responsibilities sheet to pt. * Progress Notes - Indira Márquez - 09/18/2018 2:16 PM EST Called pt. No answer, left detailed VM informing pt that her SW consult is now scheduled for 10/17/18@ 0830 and asked for call back to confirm. Included in my VM that pt will need to bring a family member or support person w/ her to this appt. * Progress Notes - Indira Márquez - 09/13/2018 9:04 AM EST Per Daisy, pt's SW consult needs to be r/s'd to October. Pt's 2/27/19 SW consult has been r/s'd to 10/17/18 @ 0830. Updated APM, SCM, OTTR, and [facility]. Will call pt and mail updated ppw. * Progress Notes - Indira Márquez - 09/12/2018 3:18 PM EST Per Mar[facility], pt's 09/13/18 SW consult will have to be r/s'd due to lack of coverage. Called and spoke w/pt. Informed pt that we need to cancel her SW consult for tomorrow and apologized for the inconvenience. Told pt that I unfortunately do not have a new date/time available yet to give her, but that Iwill call her back w/ that new appt info as soon as SW gets back to me w/ the next available date. Pt states she can come any day from 09/18/18-10/03/18, as long as the appt is early in the morning around 0830, and can come any day in October as well. Pt states she definitely can't come on 10/04 or 10/11.Told pt I will call her back as soon as I get an new appt scheduled for her and she verbalized understanding of all. Will rs pt's SW consult as soon as SW responds w/ coverage plan. * Progress Notes - Yris Schwarz - 08/22/2018 1:59 PM EST Patient returned call. She asked her blood type. Informed her that she is A+, however educated her that we prefer she not provide this to potential donors. Instructed her if someone shows interest atall, to give them our number and we will discuss the process with them. If they do not match, we would introduce the idea of paired donation. She confirmed understanding. * Progress Notes - Indira Márquez - 08/22/2018 1:47 PM EST Called and spoke w/ pt. Offered her several dates for SW consult (including sooner openings), but pt selected 09/13/18 @ 1300. Reminded pt that she must bring a family member or support person w/ her to this appt and she verbalized understanding of all. Mailed 09/13/18 appt schedule w/ map and caregiver responsibilities sheet to pt. * Progress Notes - Yris Schwarz - 08/21/2018 3:01 PM EST Attempted to return call to patient. No answer. Left message requesting return call. * Progress Notes - Hilaria Hsu - 08/17/2018 11:31 AM EST Please schedule SW consult * Progress Notes - Indira Márquez - 08/11/2018 11:51 AM EST Received VM from pt asking for call back at [phone] to talk about a living donor. Called and spoke w/ pt. States she has several potential living donors and they have questions about the process, testing, and requirements. Informed pt that her potential living donors can call [phone] to discuss this and receive more info, and reminded pt that the potential living donors must call directly to express interest. Pt verbalized understanding. * Progress Notes - Indira Márquez - 07/25/2018 10:31 AM EST Received k/p txp referral. Called and spoke w/ pt. Verified name and address. Currently not on dialysis. PCP is Fabiola Guzman. Pt scheduled for 08/14/18 ICE @ 0800, 0730 arrival. Mailed ICE packet to pt and cc'd referring MD. USPS [phone] [id number]. documented in this encounter Plan of Treatment Upcoming Encounters Date Type Department Care Team (Late st Contact Info) Description 08/28/2024 11:00 AM EST Office Visit [facility] [address] [facility], [address] [place] [address] Erica Ventura PA [address] [place] [address] documented as of this encounter Procedures Procedure Name Priority Date/Time Associated Diagnosis Comments OTTR LAB RESULTS (MANUAL) Routine 03/29/2019 9:25 AM EDT documented in this encounter Results * OTTR LAB RESULTS (MANUAL) (03/29/2019 9:25 AM EDT) External Estimated GFR 15.98 EXTERNAL LAB 03/29/2019 9:25 AM EDT Narrative EXTERNAL LAB - 03/29/2019 4:50 PM EDT Automated LAB Interface us Historical Provider LAB BLOOD ORDERABLES Amy l Result EXTERNAL LAB documented in this encounter Visit Diagnoses Not on filedocumented in this encounter Care Teams Botanical Technical Officer Relationship Specialty Start Date End Date Jaquan Conley MD [address] [place] [address] PCP - General 11/28/20 documented as of this encounter
--- OUTSIDE RECORDS SUMMARY | 2024-05-30 08:39 | XMS_ITS | Encounter Summary ---
Author Organization [facility] Address [address] [place] [address] Care Team Providers Care Relay Tester Helper Name Role Phone Jaquan Conley MD Primary Care Provider + [phone] Encounter Details Date Type Department Care Team (Late st Contact Info) Description 06/27/2023 Telephone [facility] [address] [facility], [address] [place] [address] Erica Ventura PA [address] [facility] [address] [place] [address] Social History Tobacco Use Types [...] encounter Miscellaneous Notes * Telephone Encounter - Cecille Quiroz - 06/27/2023 11:10 AM EST Patient Phone Message Reason for Call: Patient states her pump supplies need to go through [facility] Best contact number and optimal time of day to reach caller: [phone] Note: Please do not reply to this message. Follow-up communication and further actions as a result of this message need to be communicated with the patient directly, if the patient is not active onMyChart. If the patient is active on MyChart, they will receive notification of the communication/outcome via MyChart. documented in this encounter Plan of Treatment Upcoming Encounters Date Type Department Care Team (Late st Contact Info) Description 08/28/2024 11:00 AM EST Office Visit [facility] [address], [address] [place] [address] Erica Ventura PA [address] [facility] [address] [place] [address] documented as of this encounter Visit Diagnoses Not on filedocumented in this encounter Additional Health Concerns Assessment Noted Time A fall risk assessment has been complete d for the patient 06/20/2023 12:51 PM EST A Body Mass Index follow-up plan has been documented for the patient 06/20/2023 2:00 PM EST documented as of this encounter Care Teams Relay Tester Helper Relationship Specialty Start Date End Date Jaquan Conley MD [address] [place] [address] PCP - General 11/28/20 documented as of this encounter
--- OUTSIDE RECORDS SUMMARY | 2024-05-30 08:39 | XMS_ITS | Encounter Summary ---
Author Organization [facility] Address [address] [place] [address] Care Team Providers Care Heat Treatment Technician Name Role Phone Jaquan Conley MD Primary Care Provider + [phone] Encounter Details Date Type Department Care Team (Late st Contact Info) Description 01/27/2024 12:20 PM EDT Office Visit [facility] [address] , [address] [place] [address] Marilyn Valencia, SHED HAND [address] [facility] [address] [place] [address] Type 2 diabetes mellitus with other specified complication, with long-term current use of insulin ([facility]) (Primary Dx); Insulin pump titration; Hypoglycemia due to insulin; Nephropathy; Renal transplant recipient Social History Tobacco Use Types Packs/Day Years [...] - Inhaled Oxygen Concentration - - Weight 70.8 kg (156 lb) 01/27/2024 12:41 PM EDT Height 165.1 cm (5' 5 ) 01/27/2024 12:41 PM EDT Body Mass Index 25.96 01/27/2024 12:41 PM EDT documented in this encounter Miscellaneous Notes * Progress Notes - Marilyn Valencia APRN - 01/27/2024 12:20 PM EDT Note to patient: The Cures Act makes medical notes like these available to patients inthe interest of transparency. However, be advised this is a medical document. It is intended as peer to peer communication. It is written in medical language and may contain abbreviations or verbiagethat are unfamiliar. It may appear blunt or direct. Medical documents are intended to carry relevant information, facts as evident, and the clinical opinion of the practitioner. Subjective Crystal Archer is a 33 y.o. female who presents for an follow up evaluation of Diabetes Mellitis Type 2. Patient was diagnosed at the age of 12. Current symptoms/problems include hypoglycemia . PMHx: History noncompliance, substance abuse, multiple DKA events, CKD5/ESRD, Tobacco Abuse, December 2019- Gastric sleeve for wt loss-> dropped from 390's to 138 pounds Telehealth Statement Patient Verification Patient identity has been confirmed using name and date of ? Yes Authorizations and Agreements/Telemedicine Consent sent and consent confirmed? Yes Patient Location: Home/Other Patient confirms they are physically located in [place]? Yes If the patient is not physically located in [place], the provider has confirmed with [facility] thatthe provider is authorized to provide services in patient's stated location? Yes Provider Location: [facility] facility Audio and video or audio only? Audio and video Total visit time: 48 minutes HPI - last OV 06/20/23 with JOHN Arango - since then she has had a kidney transplant on 12/03/23 at [facility]. No longer taking prednisone due torash, stopped about 1 month ago, did not notice any changes in BG - eating more CHO at night due to overnight lows Current treatment includes insulin pump. Previously on MDI. Resumed Tandem insulin pump in January, not using using Control IQ. No download, pump reported per patient 30 day TDD 58.48u, basal 61% Settings: all CF are 1:20 and all CHO 1:10, all target BG 120 12a basal 1.3 8a basal 1.6 12p: basal 1.6 10p: basal 1.6 - inquiring about Ozempic, states transplant team wanted her to run it by us - Compliance at present is estimated to be inadequate. - checking glucose 4 or more times a day. wearing Dexcom G6, no download. -Hypoglycemic events:Yes, on occasion, hypoglycemia awareness intact -Severe Hypoglycemic events: Denies Known diabetic complications: nephropathy, retinopathy, and peripheral neuropathy - patient denies prior diagnosis or family history of bladder cancer, thyroid cancer, DKA, gastroparesis and pancreatitis Cardiovascular risk factors: diabetes mellitus, dyslipidemia, hypertension, and smoking/ tobacco exposure Is she on KAYLAH inhibitor or angiotensin II receptor amara? No Is she on a StatinYes 05/19/23 TRG 72 Current diet: :on average, 2-3 meals per day dirty keto diet . drinks 2 diet sodas due to low phos Current exercise::no regular exercise The following portions of the chart were reviewed this encounter and updated as appropriate: Review of Systems Constitutional: Negative. HENT: Negative. Eyes: Negative. Respiratory: Negative. Cardiovascular: Negative. Gastrointestinal: Negative. Endocrine: See HPI Genitourinary: Negative. Musculoskeletal: Negative. Skin: Negative. Neurological: Negative. Psychiatric/Behavioral: Negative. Objective Physical Exam Constitutional: Appearance: Normal appearance. Comments: Visualized on video through telehealth HENT: Head: Normocephalic. Nose: Nose normal. Pulmonary: Effort: Pulmonary effort is normal. Musculoskeletal: Cervical back: Normal range of motion. Neurological: Mental Status: She is alert and oriented to person, place, and time. Psychiatric: Mood and Affect: Mood normal. Behavior: Behavior normal. Thought Content: Thought content normal. Judgment: Judgment normal. Lab Review Glucose, Plasma (mg/dL) Date Value 12/16/2022 139 (H) 06/18/2021 197 (H) 05/15/2021 94 05/11/2021 98 03/29/2019 322 (H) 04/06/2018 150 (H) POCT [...] (H) Assessment/Plan Diabetes Mellitis Type 2, is uncontrolled. - discussed risk vs benefits of GLP use, agrees to initiate -continue intensive insulin therapy via pump, explained that given c-peptide supplies may or may not be covered by insurance, verbalized understanding Rx changes: decreasing basal rates by 10% to reduce risk of lows CHANGES: 12a basal rate of 1.3 decreased to 1.17 8a, 12p, 10p basal rates decreased from 1.6 to 1.44 - continued all other settings as detailed in HPI - Start Ozempic 0.25mg weekly x 4 weeks then increase to 0.5mg weekly, reminded that insulin requirements may decrease with with weight loss - she activated Control IQ and set up sleep schedules from 11p-8:30a - continue to check BG 4 or more times a day via CGM for insulin adjustment - ketone strips ordered - strips refilled - no reported open areas on feet # hypoglycemia due to insulin - adjusted settings - no LOC with lows and hypo awareness is intact - explained that preprandial dosing will help reduce this risk - refilled glucagon # ESRD s/p transplant - doing well - follow up with transplant as scheduled The following Diabetes education was reviewed: [x]SBGM to evaluate dose needs [x]Insulin coverage with carbohydrate intake [x]Site rotation [x] Exercise impact on glucose levels [x]Driving safety related to diabetes []Sick day management [x]Ketone testing []Over treatment of hypoglycemia [x] Hypoglycemia management [x]Call-in line use []Insulin pump pros and cons [x]Sensor home use []Pump class offerings []Beth phenomena []Somogyi effect [] Alcohol related to diabetes []Benefits of written records [x]Pre-meal Bolusing [x]Daily foot care [x] Healthy diet and regular exercise []Long-term complications related to poor diabetes management [] Injection timing related to changes in activity/exercise I personally spent a total of 48 minutes on this encounter. This time includes face to face with patient, counseling and discussion and/or coordination of care. Electronically signed by: Marilyn Valencia APRN [facility] [address] [facility] [place]. [address] PHONE [phone] FAX: [phone] documented in this encounter Plan of Treatment Upcoming Encounters Date Type Department Care Team (Late st Contact Info) Description 08/28/2024 11:00 AM EST Office Visit [facility] [address] , [address] [place] [address] Erica Ventura PA [address] [facility] [address] [place] [address] documented as of this encounter Visit Diagnoses Diagnosis Type 2 diabetes mellitus with other specified complication, with long-term current use of insulin ([facility])- Primary Insulin pump titration Fitting and adjustment of insulin pump Hypoglycemia due to insulin Nephropathy Nephritis and nephropathy, not specified as acute or chronic, with unspecified pathological lesion in kidney Renal transplant recipient documented in this encounter Additional Health Concerns Assessment Noted Time A fall risk assessment has been complete d for the patient 06/20/2023 12:51 PM EST A Body Mass Index follow-up plan has been documented for the patient 01/27/2024 1:29 PM EDT documented as of this encounter Care Teams Heat Treatment Technician Relationship Specialty Start Date End Date Jaquan Conley MD [address] [place], [place] [id number] PCP - General 11/28/20 documented as of this encounter
--- OUTSIDE RECORDS SUMMARY | 2024-05-30 08:39 | XMS_ITS | Encounter Summary ---
Author Organization [facility] Address [address] [place] [address] Care Team Providers Care Cut Off Saw Operator Name Role Phone Jaquan Conley MD Primary Care Provider + [phone] Encounter Details Date Type Department Care Team (Late st Contact Info) Description 01/26/2021 Orders Only [facility] [address] , [address] [place] [address] Valentine Boggs, VIVIE, RD [address] [facility] [address] [place] [address] Social History Tobacco Use Types [...] [facility] [address] [place] [address] Erica Ventura PA [address] [facility] [address] [place] [address] documented as of this encounter Visit Diagnoses Not on filedocumented in this encounter Care Teams Cut Off Saw Operator Relationship Specialty Start Date End Date Jaquan Conley MD [address] [place], [place] [id number] PCP - General 11/28/20 documented as of this encounter
--- OUTSIDE RECORDS SUMMARY | 2024-05-30 08:39 | XMS_ITS | Encounter Summary ---
Author Organization [facility] Address [address] [place] [address] Care Team Providers Care Warp Drawer Name Role Phone Jaquan Conley MD Primary Care Provider + [phone] Encounter Details Date Type Department Care Team (Late st Contact Info) Description 08/31/2021 Telephone [facility] End[facility] [address], [address] [place] [address] Susana Thao Social History Tobacco Use Types Packs/Day Years [...] encounter Miscellaneous Notes * Telephone Encounter - Susana Thao MA - 08/31/2021 9:45 AM EST Spoke with patient , stated she was driving at the time on an unknown road so I was unable to update chart Patient will respond via email . Confirmed email address and sent email . documented in this encounter Plan of Treatment Upcoming Encounters Date Type Department Care Team (Late st Contact Info) Description 08/28/2024 11:00 AM EST Office Visit [facility] Endocrin[facility] [address] , [address] [place] [address] Erica Ventura PA [address] [facility] [address] [place] [address] documented as of this encounter Visit Diagnoses Not on filedocumented in this encounter Care Teams Warp Drawer Relationship Specialty Start Date End Date Jaquan Conley MD [address] [place] [address] PCP - General 11/28/20 documented as of this encounter
--- OUTSIDE RECORDS SUMMARY | 2024-05-30 08:39 | XMS_ITS | Encounter Summary ---
Author Organization [facility] Address [address] [place] [address] Care Team Providers Care Marketing Analytics Analyst Name Role Phone Jaquan Conley MD Primary Care Provider + [phone] Reason for Visit * Reason Onset Date Comments HCN - Patient Message 09/25/2021 Encounter Details Date Type Department Care Team (Late st Contact Info) Description 09/25/2021 Telephone [facility] Endocrinology [address], [address] [place] [address] Pearl Gilman, SOFTWARE ENGINEERING SUPERVISOR [address] [place] [address] HCN - Patient Message Social History Tobacco Use Types Packs/Day Years [...] encounter Miscellaneous Notes * Telephone Encounter - Brenda Palmer RN - 09/25/2021 4:07 PM EST Lab order mailed. Brenda Palmer, RN * Telephone Encounter - Cecille Quiroz - 09/25/2021 9:46 AM EST Patient Phone Message Reason for Call: Please send lab orders and the A1C for patient to: [facility] [id number] [place] [address] Best contact number and optimal time of day to reach caller: [phone] (leave msg w/sister; Daisy Shaffer or in-law Dima) Note: Please do not reply to this [...] Description 08/28/2024 11:00 AM EST Office Visit [facility] Endocrinology [address], [address] [place] [address] Erica Ventura PA [address] [place] [address] documented as of this encounter Visit Diagnoses Not on filedocumented in this encounter Care Teams Marketing Analytics Analyst Relationship Specialty Start Date End Date Jaquan Conley MD [address] [place] [address] PCP - General 11/28/20 documented as of this encounter
--- OUTSIDE RECORDS SUMMARY | 2024-05-30 08:39 | XMS_ITS | Encounter Summary ---
Author Organization [facility] Address [address] [place] [address] Care Team Providers Care General Production Manager Name Role Phone Jaquan Conley MD Primary Care Provider + [phone] Reason for Visit * Reason Onset Date Comments HCN - Patient Message 06/07/2023 Encounter Details Date Type Department Care Team (Late st Contact Info) Description 06/07/2023 Telephone [facility] [address] [place] [address] Khloe Elias, ANJU [address] [address] HCN - Patient Message Social History Tobacco [...] encounter Miscellaneous Notes * Telephone Encounter - Marleny Palomino - 06/07/2023 11:49 AM EST Clinical Concern/Question Reason for Call: Simran, with [facility] is requesting the most recent office notes on this pt. Best contact number: Other: [phone] Optimal time of day to reach caller: ANYTIME Additional comments/information from caller: None Note: Please do not reply to this message. Follow-up communication and further actions as a result of this message need to be communicated with the patient directly, if the patient is not active onMyChart. If the patient is active on MyChart, they will receive notification of the communication/outcome via [employer]ck[employer]. documented in this encounter Plan of Treatment Upcoming Encounters Date Type Department Care Team (Late st Contact Info) Description 08/28/2024 11:00 AM EST Office Visit [facility] Endocrinology [address] [place] [address] Erica Ventura PA [address] [place] [address] documented as of this encounter Visit Diagnoses Not on filedocumented in this encounter Additional Health Concerns Assessment Noted Time A fall risk assessment has been complete d for the patient 12/16/2022 12:47 PM EDT A Body Mass Index follow-up plan has been documented for the patient 12/16/2022 1:35 PM EDT documented as of this encounter Care Teams General Production Manager Relationship Specialty Start Date End Date Jaquan Conley MD [address] [place] [address] PCP - General 11/28/20 documented as of this encounter
--- OUTSIDE RECORDS SUMMARY | 2024-05-30 08:39 | XMS_ITS | Encounter Summary ---
Author Organization [facility] Address [address] [id number] Care Team Providers Care Hand Heel Seat Fitter Name Role Phone Jaquan Conley MD Primary Care Provider + [phone] Reason for Visit * Reason Onset Date Comments PA for Dexcom G7 Insole Rounder 06/20/2023 Pa Dexcom Sensor also 06/20/2023 Encounter Details Date Type Department Care Team (Late st Contact Info) Description 06/20/2023 Telephone [facility] Endocrinology [address] [place] [address] Nisha Yeboah [address] [facility] [address] [place] [address] PA for Dexcom G7 Insole Rounder ; Pa Dexcom Sensor also Social History Tobacco Use Types Packs/Day Years [...] encounter Miscellaneous Notes * Telephone Encounter - Mesha Patton RN - 06/27/2023 2:50 PM EST Spoke to pt re the denial of the G7. Pt wishes to stick with the G6 She would like to continue to get them through [facility] Provided pt with the # to call [facility] and the fax # to have them send the order * Telephone Encounter - Aditi Flores CPhT - 06/24/2023 8:09 AM EST Denial letters uploaded. * Telephone Encounter - Mesha Patton RN - 06/23/2023 2:07 PM EST Will you scan in the denial letter so that I can see where to send * Telephone Encounter - Sebastien Doty - 06/23/2023 10:26 AM EST Hi! If you want to try to add that to an appeal that may help get it approved! * Telephone Encounter - Mesha Patton RN - 06/23/2023 8:48 AM EST Pt has tried the Dexcom G6 multiple times and the sensor falls off prior to the 10 day wear time. The G7 has a different adhesive and for some of our patients sticks better and longer. Would this be a reason that we can do a PA? * Telephone Encounter - Sebastien Doty - 06/23/2023 8:16 AM EST PA request has been denied. Sending to clinic for review via [employer] upload. Medication: Dexcom G7 sensor/home care liaison ANDREA , [id number] Additional Info: Need clinical justification (legally blind, vision impairment where they can't seethe numbers, product has a feature that is not available on any preferred products) why the member can't use a preferred product (Dexcom G6, FreeStyle Nestor 3 * Telephone Encounter - Sebastien Doty - 06/22/2023 9:44 AM EST Prior authorization initiated by [employer]. Update will be provided when a determination has been received. Medication: Dexcom G7 home care liaison/sensors ANDREA Submission Method: CMM Case Number/CMM [place]: [id number], [id number] * Telephone Encounter - Nisha Yeboah - 06/20/2023 5:03 PM EST Images from the original note were not included. * Telephone Encounter - Nisha Yeboah - 06/20/2023 4:54 PM EST Images from the original note were not included. documented in this encounter Plan of Treatment Upcoming Encounters Date Type Department Care Team (Late st Contact Info) Description 08/28/2024 11:00 AM EST Office Visit [facility] Endocrinology [address] [place] [address] Erica Ventura PA [address] [place] [address] documented as of this encounter Visit Diagnoses Not on filedocumented in this encounter Additional Health Concerns Assessment Noted Time A fall risk assessment has been complete d for the patient 06/20/2023 12:51 PM EST A Body Mass Index follow-up plan has been documented for the patient 06/20/2023 2:00 PM EST documented as of this encounter Care Teams Hand Heel Seat Fitter Relationship Specialty Start Date End Date Jaquan Conley MD [address] [place] [address] PCP - General 11/28/20 documented as of this encounter
--- OUTSIDE RECORDS SUMMARY | 2024-05-30 08:39 | XMS_ITS | Encounter Summary ---
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 No / Unsure 12/21/2021 12:39 PM EDT documented as of this encounter Last Filed Vital Signs Vital Sign Reading Time Taken Comments Blood Pressure 163/98 12/21/2021 12:54 PM EDT Pulse 81 12/21/2021 12:54 PM EDT Temperature - - Respiratory Rate - - Oxygen Saturation - - Inhaled Oxygen Concentration - - Weight 62.6 kg (138 lb 0.1 oz) 12/21/2021 12:54 PM EDT Height 165.1 cm (5' 5 ) 12/21/2021 12:54 PM EDT Body Mass Index 22.97 12/21/2021 12:54 PM EDT documented in this encounter Miscellaneous Notes * Progress Notes - Pearl Gilman, ANJU - 12/21/2021 12:40 PM EDT Subjective Crystal Archer is a 31 y.o. female who presents for an follow up evaluation of Diabetes Mellitis Type 1. Patient was diagnosed at age 12. Current symptoms/problems include hyperglycemia PMH:h/o noncompliance, substance abuse, multiple DKA's, CKD Stage 4-5, Tobacco Abuse, December 2019- Gastric sleeve for wt loss-> dropped from 390's to 138 pounds. HPI - last office visit: 08/2021 Erica Izquierdo APRN, no changes. -recent illness: Denies, She is notes that she is on transplant list at [facility] and awaiting kidney. Today A1c: 5.5% Current treatment includes insulin pump Tandem pump-> Pt is not using control IQ. She she turned off this feature. We are unable to download her pump as she can not access her account, even after changing password. 00:00-> 1.80u/hr 08:00-> 2.40u/hr 12:00-> 2.50u/hr 22:00-> 2.40u/hr CF: 1:20, CHO Ratio 1:5 Known diabetic complications: nephropathy,peripheral neuropathy, and Retinopathy-> she notes that she is refuses to go back to eye doctor and her vision remains limited. Compliance at present is estimated to be good- wearing pump and cgm. Cardiovascular risk factors: diabetes mellitus, dyslipidemia, hypertension and smoking/ tobacco exposure Is she on KAYLAH inhibitor or angiotensin II receptor amara? No Is she on a StatinYes Current diet: {diet habits:in general, an unhealthy diet and on average, 1 meals per day Current exercise: {exercise types:no regular exercise Home blood sugar records: Checking BG 4 times per/day, via Dexcom, Unable to download data as her phone is not compatible and she is not using PDM. -Hypoglycemic events:Yes, she notes that she is having lows if she boluses at all. She admits to not eating meals as she should. She will feel shaky, hot and sweaty when she hits the 70's. She eats honey buns. -Severe Hypoglycemic events:Denies -DKA events: Yes in the past, numerous times. Date of Last Eye Exam: Aug-September 2021 Date of Last Foot Exam: n/a What current meter are you using?: one touch What pump type do you have?: Tandem What type of sensor do you have?: Dexcom When was your last flu shot?: may 2021 When did you have labs last?: December [facility] nephrology The following portions of the chart were [...] 589 (HH) POCT Hemoglobin A1C Date Value 12/21/2021 5.5 % 11/26/2020 6.1 07/30/2020 5.0 04/28/2020 5.4 CO2, Plasma (mmol/L) Date Value 03/29/2019 21 (L) 04/06/2018 18 (L) 09/20/2017 20 (L) BUN, Plasma (mg/dL) Date Value 03/29/2019 34 (H) 04/06/2018 22 (H) 09/20/2017 28 (H) Creatinine, Plasma (mg/dL) Date Value 03/29/2019 3.56 (H) 04/06/2018 1.85 (H) 09/20/2017 1.65 (H) Assessment/Plan Diabetes Mellitis Type 1, is uncontrolled. A1c: 5.5% Rx changes: reduced basal rates due to repeated intermittent hypoglycemia PLAN: 1. Adjusted all basal rates 00:00-> 1.50u/hr, 08:00a-> 2.00u/hr, 12:00-> 2.00u/hr, 22:00-> 2.00u/hr. adjusted her target BG to 120. Counseled at length she needs to call Tandem for assistance in accessing her account. Her is going to try and download her CGM on his smart phone. 2. Continue checking BG 4 times per/day 3. Follow up 3 months 4. Recommend titration clinic, explained to her the importance of Being able to download her pump in order to make decisions on adjusting pump. She also reports that she is used to self adjusting. #HTN -Uncontrolled, bp today:163/98 -stable on antihypertensives,pt reports compliance, no s/e -continue antihypertensives as prescribed - encouraged daily bp check - reviewed the impact diet and exercise have on bp management # Hyperlipidemia -Stable -Continue on statin,pt reports compliance and no myalgias -Will continue to monitor Cholesterol levels -Encouraged healthy lifestyle modifications->diet and exercise. # CKD Stage 4 -pt reports she is on [facility] transplant list for kidney. -Followed by Nephrology. The following Diabetes education was reviewed: [x]SBGM [...] written records [x]Pre-meal Bolusing []Daily foot care [x] Healthy diet and regular exercise [x]Long-term complications related to poor diabetes management [] Injection timing related to changes in activity/exercise I personally spent a total of 45 minutes on this encounter. This time includes face to face with patient, counseling and discussion and/or coordination of care. Electronically signed by: Pearl Gilman APRN [facility] ENDOCRINOLOGY [address] [place]. 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 (CMS/HCC) documented in this encounter Results * POCT glycosylated hemoglobin (Hb A1C) docked device (12/21/2021 1:03 PM EDT) POCT Hemoglobin A1C 5.5 4.4-6.6 % % [facility] Kit Lot Number n/[id number] [facility] Kit Expiration Date n/a [facility] Blood Venous blood specimen / Unknown 12/21/2021 1:03 PM EDT us Pearl Brooks Mukul MACHINIST FIRST CLASS POINT OF CARE TEST ENTER/RANDY T ORDERABLES Final Result [facility] [address] [place] [address] documented in this encounter Visit Diagnoses Diagnosis 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 (CMS/[facility])- Primary Hyperlipidemia, unspecified hyperlipidemia type Essential hypertension Unspecified essential hypertension Chronic kidney disease, stage IV (severe) (CMS/HCC) Chronic kidney disease, Stage IV (severe) documented in this encounter Additional Health Concerns Assessment Noted Time A fall risk assessment has been complete d for the patient 12/21/2021 12:59 PM EDT documented as of this encounter Care Teams Decorator Inspector Relationship Specialty Start Date End Date Jaquan Conley MD [address] [place] [address] PCP - General 11/28/20 documented as of this encounter
--- OUTSIDE RECORDS SUMMARY | 2024-05-30 08:39 | XMS_ITS | Encounter Summary ---
Author Organization [facility] Address [address] [place] [address] Care Team Providers Care Latrine Cleaner Name Role Phone Jaquan Conley MD Primary Care Provider + [phone] Reason for Visit * Reason Comments Type 1 diabetes mellitus with other spec ified complication Encounter Details Date Type Department Care Team (Late st Contact Info) Description 05/23/2024 11:00 AM EST [facility] Visit [facility] [address] [facility], [address] [place] [address] Erica Ventura PA [address] [facility] [address] [place] [address] Type 2 diabetes mellitus with other specified complication, with long-term current use of insulin ([facility]) (Primary Dx); Renal transplant recipient Social History Tobacco Use [...] Pulse 85 05/23/2024 10:50 AM EST Temperature - - Respiratory Rate - - Oxygen Saturation - - Inhaled Oxygen Concentration - - Weight 71.3 kg (157 lb 3 oz) 05/23/2024 10:50 AM EST Height 165.1 cm (5' 5 ) 05/23/2024 10:50 AM EST Body Mass Index 26.16 05/23/2024 10:50 AM EST documented in this encounter Miscellaneous Notes * Patient Instructions - Erica Ventura PA - 05/23/2024 11:00 AM EST -Please call the diabetes education team with any questions or concerns [phone] * Progress Notes - Erica Ventura PA - 05/23/2024 11:00 AM EST Subjective Crystal Archer is a 33 y.o. female who presents for an follow up evaluation of Diabetes Mellitis Type 2. Patient was diagnosed age 12. Current symptoms/problems include none. PMHx: History noncompliance, substance abuse, multiple DKA events, CKD5/ESRD, Tobacco Abuse, December 2019- Gastric sleevefor wt loss-> lost from 390's to 138 pounds resulting in decreased insulin requirements. HPI Today A1C 5.8% -Last office visit with this provider 07/09, since that time patient received a single kidney transplant on 12/02 at [facility], prednisone was stopped due to rash, currently on cellcept and tacro twice daily. TH visit 01/26 with Erik ERNE. At telehealth visit, patient's pump was unable to be downloaded after she had resume tandem pump in January. Changes were made based on patient's report of pump settings, blood glucose and patterns she had detected. Recommendations included reducing basal rates by 10% due to hypoglycemia reported (12a basal rate 1.3 decreased to 1.17, 8a-12A basal rate decreased from 1.6 to 1.44), control IQ activated and set up sleep schedules from 11p-830AM. -Patient was also started on Ozempic after discussion of risks versus benefits, as recommended by transplant team, and was discuss potential changes to insulin requirements. -had concerns in the past over coverage of pump when patient was on Medicare prior to transplant and due to elevated C-peptide, now on [facility] Medicaid. -Patient also endorses discussing pancreas organ transplant with her transplant team. -She states she has been doing well. States that ability to enjoy certain foods she had to cut out for renal safety and not having dialysis/ESRD take the majority of her time, she has had much more energy and enjoyment in her life. Current treatment includes insulin pump and GLP1 -Ozempic 0.5 mg weekly for past 3 months, no side effects, inquiring about dose increase as seeing good effect on blood glucose. Insulin pump: Tandem, control IQ off 98% Downloaded and reviewed: 05/10-05/23 TDD: 45.54 units/day Basal 70%; Bolus 30% --> Food Bolus 57%; Correction Bolus 43%; Control IQ Bolus 0% CGM Statistics: Average BG 143 GMI 6.7%; In Target 77%; High 18% Interpretation: Overall good blood glucose control, mid-day mild hyperglycemia that resolves withinseveral hours. Known diabetic complications: nephropathy now s/p SKD transplant 11/2023. Compliance at present is estimated to be good. Cardiovascular risk factors: diabetes mellitus Is she on KAYLAH inhibitor or angiotensin II receptor amara? No Is she on a StatinYes Current diet: {diet habits:on average, 1-2 meals per day states she has been eating what she wants since not as restrictive after transplant, does still try to be mindful of intake. Current exercise: {exercise types:no regular exercise Date of Last Eye Exam: 11/2022 Date of Last Foot Exam: 06/2023 What current meter are you using?: OneTouch What pump type do you have?: Tandem T Slim What type of sensor do you have?: Dexcom G6 When was your last flu shot?: 04/2023 When did you have labs last?: 04/2024 The following portions of the chart were reviewed this encounter and updated as appropriate: Tobacco Allergies Meds Problems Med Hx Surg Hx Fam Hx Review of Systems Constitutional: Negative. HENT: Negative. Eyes: Negative. Respiratory: Negative. Cardiovascular: Negative. Gastrointestinal: Negative. Endocrine: See HPI Genitourinary: Negative. Musculoskeletal: Negative. Skin: Negative. Neurological: Negative. Psychiatric/Behavioral: Negative. Objective Physical Exam Vitals reviewed. Constitutional: General: She is not in acute distress. Appearance: Normal appearance. She is not ill-appearing. HENT: Head: Normocephalic. Nose: Nose normal. Cardiovascular: Rate and Rhythm: [...] 150 (H) POCT Hemoglobin A1C Date Value 05/23/2024 5.8 % 06/20/2023 5.1 12/16/2022 5.3 % 11/26/2020 6.1 07/30/2020 5.0 04/28/2020 5.4 Hemoglobin A1c (%) Date Value 03/15/2023 5.9 (H) CO2, Plasma (mmol/L) Date Value 12/16/2022 22 03/29/2019 21 (L) 04/06/2018 18 (L) BUN, Plasma (mg/dL) Date Value 12/16/2022 42 (H) 06/18/2021 41 (H) 05/15/2021 40 (H) 05/11/2021 43 (H) 03/29/2019 34 (H) 04/06/2018 22 (H) Creatinine, Plasma (mg/dL) Date Value 12/16/2022 5.82 (H) 06/18/2021 3.69 (H) 05/15/2021 3.83 (H) 05/11/2021 3.74 (H) 03/29/2019 3.56 (H) 04/06/2018 1.85 (H) Assessment/Plan Diabetes Mellitis Type 2, is controlled. Rx changes: reviewed CMP and within normal limits with transplant 05/07, no concerns with LFT's, increase Ozempic to 1 mg weekly with next refill. Reviewed mechanism of action and potential side effects. -Continue intensive insulin delivery via automated insulin pump therapy. Extensive discussion with patient on her diabetes mechanism of action, including elevated c-peptide indicating endogenous insulin production and insulin resistance pathways which can now be addressed with T2DM medication, which were limited in use prior to her transplant. Advised this would not indicate need for pancreas transplant as no issues with blood glucose related to this, patient understanding. Patient to continue to monitor insulin requirements with GLP1 titration. -We discussed potential to utilize T2DM medications now and potentially work towards decreased insulin use, which is patient's overall goal. We discussed impact of Metformin (can assess XR and/or lower doses due to diarrhea prior) or SGLT2i for CV/renal protection benefits. Advised would likely notstart SGLT2i at this time as only 6m s/p transplant and typically limit renally metabolized medication with anti-rejection medication initiation, however can reassess with transplant at next visit and start prior to next office visit if prefers, patient understanding and agreeable. -Continue using CGM to test BG 3+ times daily to adjust insulin doses for use with hybrid closed loop insulin pump system, currently linked to pump but not utilizing control IQ for auto boluses due to hypoglycemia. -Routine care up to date -Follow up 3 months The following Diabetes education was reviewed: [x]SBGM to evaluate dose needs [x]Insulin coverage with carbohydrate intake []Site rotation [] Exercise impact on glucose levels []Driving safety related to diabetes []Sick day management []Ketone testing []Over treatment of hypoglycemia [x] Hypoglycemia management [x]Call-in line use [x]Insulin pump pros and cons [x]Sensor home use []Pump class offerings []Beth phenomena []Somogyi effect [] Alcohol related to diabetes []Benefits of written records [x]Pre-meal Bolusing []Daily foot care [] Healthy diet and regular exercise [x]Long-term complications related to poor diabetes management [] Injection timing related to changes in activity/exercise #s/p renal transplant 11/2023 -patient doing very well. Continue good blood glucose control. -will continue to monitor GFR and progression following transplant to assess initiation of T2DM medications -Time spent with patient does not include time spent reviewing CGM. I personally spent a total of 30 minutes on this encounter. This time includes face to face with patient, counseling and discussion and/or coordination of care. Electronically signed by: ANDREA Paul [facility] [address] [place] [address]. [address] [place]. [address] PHONE [phone] FAX: [phone] documented in this encounter Plan of Treatment Upcoming Encounters Date Type Department Care Team (Late st Contact Info) Description 08/28/2024 11:00 AM EST Office Visit [facility] Endocrinology [address] [place], [place] [address], [address] [place] [address] Erica Ventura PA [address] [facility] [address] [place] [address] documented as of this encounter Procedures Procedure Name Priority Date/Time Associated Diagnosis Comments POCT GLYCOSYLATED HEMOGLOBIN (HGB A1C) Routine 05/23/2024 11:03 AM EST Type 2 diabetes mellitus with other specified complication, with long-term current use of insulin ([facility]) documented in this encounter Results * (ABNORMAL) POCT glycosylated hemoglobin (Hb A1C) (05/23/2024 11:03 AM EST) POCT Hemoglobin A1C 5.8 <5.7% Non-Diabe tic % [employer] [facility] Kit Lot Number [id number] [facility] [employer] [facility] Kit Expiration Date 03/17/2026 [employer] [facility] Blood Venous blood specimen / Unknown 05/23/2024 11:03 AM EST us Erica MENDEZ POINT OF CARE TEST EN TER/EDIT ORDERABLES Final Result [facility] [address] [place] [address] documented in this encounter Visit Diagnoses Diagnosis Type 2 diabetes mellitus with other specified complication, with long-term current use of insulin ([facility])- Primary Renal transplant recipient documented in this encounter Additional Health Concerns Assessment Noted Time A fall risk assessment has been complete d for the patient 06/20/2023 12:51 PM EST A Body Mass Index follow-up plan has been documented for the patient 05/23/2024 12:56 PM EST documented as of this encounter Care Teams Latrine Cleaner Relationship Specialty Start Date End Date Jaquan Conley MD [address] [place] [address] PCP - General 11/28/20 documented as of this encounter
--- OUTSIDE RECORDS SUMMARY | 2024-05-30 08:39 | XMS_ITS | Encounter Summary ---
Author Organization [facility] Address [address] [place] [address] Care Team Providers Care Cattle Brander Name Role Phone Jaquan Conley MD Primary Care Provider + [phone] Reason for Visit * Reason Comments Med Refill Encounter Details Date Type Department Care Team (Late st Contact Info) Description 08/08/2021 Refill [facility] Diabetes Education [address] [place] [address] Ivy Whaley MD [address] [address] Type 1 diabetes mellitus with mild [...] Description 08/28/2024 11:00 AM EST Office Visit [facility] Endocrinology [address], [address] [place] [address] Erica Ventura PA [address] [place] [address] documented as of this encounter Visit Diagnoses Diagnosis 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
--- OUTSIDE RECORDS SUMMARY | 2024-05-30 08:39 | XMS_ITS | Encounter Summary ---
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
--- OUTSIDE RECORDS SUMMARY | 2024-05-30 08:39 | XMS_ITS | Encounter Summary ---
Author Organization [facility] Address [address] [place] [address] Care Team Providers Care Refining Equipment Operator Name Role Phone Jaquan Conley MD Primary Care Provider + [phone] Reason for Visit * Reason Comments Med Refill Encounter Details Date Type Department Care Team (Late st Contact Info) Description 09/04/2021 Refill [facility] Endocrinology [address] [place] [phone] Erica Izquierdo APRN [address] [place] [address] Type 1 diabetes mellitus with mild [...] Office Visit [facility] Endocrinology [address] , [address] [place] [address] Erica Ventura PA [address] [place] [address] documented as of this encounter Visit Diagnoses Diagnosis 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
--- OUTSIDE RECORDS SUMMARY | 2024-05-30 08:39 | XMS_ITS | Encounter Summary ---
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 (CMS/HCC) (Primary Dx); 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 (CMS/HCC); Essential hypertension; Hyperlipidemia, unspecified hyperlipidemia type; Nephropathy Social History Tobacco Use Types Packs/Day Years Used Date Smoking Tobacco: Every Day Smokeless Tobacco: Never Tobacco Cessation:Ready to Q uit: Not Asked; Counseling Given: Not Answered Alcohol Use Standard Drinks/Week Comments Yes 0 [...] Sign Reading Time Taken Comments Blood Pressure 135/110 05/13/2022 12:58 PM EDT Pulse 88 05/13/2022 12:58 PM EDT Temperature - - Respiratory Rate - - Oxygen Saturation - - Inhaled Oxygen Concentration - - Weight 65.2 kg (143 lb 11.8 oz) 022 12:58 PM EDT Height 165.1 cm (5' 5 ) 05/13/2022 12:5 8 PM EDT Body Mass Index 23.92 05/13/2022 12:58 PM EDT documented in this encounter Miscellaneous Notes * Patient Instructions - Erica Valdivia PA - 05/13/2022 1:20 PM EDT -Call the diabetes education team with any questions or concerns [phone] * Progress Notes - Erica Valdivia PA - 05/13/2022 1:20 PM EDT Subjective Crystal Archer is a 31 y.o. female who presents for an follow up evaluation of Diabetes Mellitis Type 1. Patient was diagnosed at age 12 . Current symptoms/problems include hyperglycemia History noncompliance, substance abuse, multiple DKA's, CKD Stage 4-5, Tobacco Abuse, December 2019- Gastric sleeve for wt loss-> dropped from 390's to 138 pounds Diabetes Today A1c: 4.8% from 5.5% last office visit 12/2021 Current treatment includes insulin pump Tandem Basal IQ, did not like Control IQ 00:00-> 1.50u/hr 08:00-> 2.0u/hr 12:00-> 2.0u/hr 22:00-> 2.0u/hr CHO Ratio 1:5 Correction Factor: 1:20 > 120 TDD: 35 units Basal: 95% Food Bolus: 2%, Correction Bolus 2% AIT: 4 hours Changing sets average every 6.5 days CGM: Average B Range: 53-316 % In Target 68 % Above Target (>140) 26%, Below Target (<80) 6% Multiple insulin pump suspensions, average 12 times per day with duration average 13 minutes due tolows, does not want to use Control IQ despite pump suspension benefit Known diabetic complications: nephropathy,peripheral neuropathy, and Retinopathy-> she notes that she is refuses to go back to eye doctor and her vision remains limited. Compliance at present is estimated to be fair- wearing pump and cgm. -She is notes that she is on transplant list at [facility] and awaiting kidney. Cardiovascular risk factors: diabetes mellitus, dyslipidemia, hypertension and smoking/ tobacco exposure Is she on KAYLAH inhibitor or angiotensin II receptor amara? No ESRD Is she on a StatinYes Current diet: {diet habits:in general, an unhealthy diet and on average, 1 meals per day Current exercise: {exercise types:no regular exercise Home blood sugar records: CGM -Hypoglycemic events:Yes, she notes that she is having lows if she boluses at all. Also notices overnight hypoglycemia that wakes her from sleep. -Severe Hypoglycemic events: Denies -DKA events: Yes, multiple events, none recent Date of Last Eye Exam: unknown Date of Last Foot Exam: unknown What current meter are you using?: na What pump type do you have?: tandem What type of sensor do you have?: dexcom When was your last flu shot?: n/a When did you have labs last?: 04/2022 The following portions of the chart were [...] 589 (HH) POCT Hemoglobin A1C Date Value 05/13/2022 4.8 % 12/21/2021 5.5 % 11/26/2020 [...] Diabetes Mellitis Type 1, is uncontrolled. A1c: 4.8% Rx changes: reduced basal rates due to repeated hypoglycemia -Adjusted all basal rates 00:00-> 1.30u/hr, 08:00a-> 1.50u/hr, 12:00-> 1.50u/hr, 22:00-> 1.50u/hr due to persistent hypoglycemia and/or near hypoglycemia with postprandial hyperglycemia -Adjust CHO from 1:5 to 1:10 and correction 1:20 to 1:40 >120 due to reported lows with bolusingand underestimating carbs to avoid lows, advised that decreasing her basal should improve her hypoglycemia, but is now imperative to bolus before meals and correct for hyperglycemia for adequate blood glucose control, patient understanding and agreeable -Continue using CGM to test BG 4+ times daily, discussed methods to improve adherence to skin, receives Dexcom through DME, refilled backup meter supplies for use as needed in CGM failure -Routine labs up to date and monitored by nephrology -Encouraged annual eye exam -Follow up 3 months Retinopathy -History of retinopathy, patient declines regular eye exams #HTN -Uncontrolled, blood pressure today: 135/110 -continue antihypertensives as prescribed - encouraged daily bp check # Hyperlipidemia -Stable -Continue on statin, patient reports compliance and no myalgias -Will continue to monitor Cholesterol levels #Nephropathy -She has been on [facility] transplant list for kidney for several years -Followed annually by Nephrology. The following Diabetes education was [...] cgm. I personally spent a total of 40 minutes on this encounter. This time includes face to face with patient, counseling and discussion and/or coordination of care. Electronically signed by: ANDREA Kumari [facility] [address] [facility] [place]. 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 [facility] Kit Lot Number na [facility] [employer] [facility] Kit Expiration Date na [employer] 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 (CMS/HCC) Essential hypertension Unspecified essential hypertension Hyperlipidemia, unspecified hyperlipidemia type Nephropathy Nephritis and nephropathy, not specified as acute or chronic, with unspecified pathological lesion in kidney documented in this encounter Additional Health Concerns Assessment Noted Time A fall risk assessment has been complete d for the patient 12/21/2021 12:59 PM EDT documented as of this encounter Care Teams Reed Fixer Relationship Specialty Start Date End Date Jaquan Conley MD [address] [place] [address] PCP - General 11/28/20 documented as of this encounter
--- OUTSIDE RECORDS SUMMARY | 2024-05-30 08:39 | XMS_ITS | Encounter Summary ---
Author Organization [facility] Address [address] [place] [address] Care Team Providers Care Conference Producer Name Role Phone Jaquan Conley MD Primary Care Provider + [phone] Encounter Details Date Type Department Care Team (Latest Contact Info) Description 06/20/2023 Travel Social History Tobacco Use Types Packs/Day [...] 08/28/2024 11:00 AM EST Office [facility] [address], [address] [place] [address] Erica Ventura PA [address] [place] [address] documented as of this encounter Visit Diagnoses Not on filedocumented in this encounter Additional Health Concerns Assessment Noted Time A fall risk assessment has been complete d for the patient 06/20/2023 12:51 PM EST A Body Mass Index follow-up plan has been documented for the patient 06/20/2023 2:00 PM EST documented as of this encounter Care Teams Conference Producer Relationship Specialty Start Date End Date Jaquan Conley MD [address] [place], [place] [id number] PCP - General 11/28/20 documented as of this encounter
--- OUTSIDE RECORDS SUMMARY | 2024-05-30 08:39 | XMS_ITS | Encounter Summary ---
Author Organization [facility] Address [address] [place] [address] Care Team Providers Care Manager Of Allied Health Services Name Role Phone Jaquan Conley MD Primary Care Provider + [phone] Encounter Details Date Type Department Care Team (Latest Contact Info) Description 09/13/2022 Travel Social History Tobacco Use Types Packs/Day [...] PM EST documented as of this encounter Plan of Treatment Upcoming Encounters Date Type Department Care Team (Late st Contact Info) Description 08/28/2024 11:00 AM EST Office Visit [facility] [address], [address] [place] [address] Erica Ventura PA [address] [place] [address] documented as of this encounter Visit Diagnoses Not on filedocumented in this encounter Additional Health Concerns Assessment Noted Time A fall risk assessment has been complete d for the patient 09/13/2022 1:03 PM EST A Body Mass Index follow-up plan has been documented for the patient 09/13/2022 1:44 PM EST documented as of this encounter Care Teams Manager Of Allied Health Services Relationship Specialty Start Date End Date Jaquan Conley MD [address] [place] [address] PCP - General 11/28/20 documented as of this encounter
--- OUTSIDE RECORDS SUMMARY | 2024-05-30 08:39 | XMS_ITS | Encounter Summary ---
Author Organization [facility] Address [address] [place] [id number] Care Team Providers Care Qa Tech Name Role Phone Jaquan Conley MD Primary Care Provider + [phone] Encounter Details Date Type Department Care Team (Late st Contact Info) Description 11/17/2022 [facility] [address], [address] [place] [address] Erica Ventura PA [address] [facility] [address] [place] [address] Social History Tobacco Use Types [...] Telephone Encounter - Mesha Patton RN - 11/17/2022 3:32 PM EDT Pt state her address has change to: [address] [place] [address] [place] [address] Can you put this change in for her? Thanks * Telephone Encounter - Mesha Patton I RN - 11/17/2022 3:19 PM EDT Called pt who states that her pump is out of warranty and that she is trying to get a new pump. Advised her that her insurance requires lab work We have put that lab work order in the computer Explained that she must make sure her glucose if <224 before labs are drawn Pt state she will get this done but it may be several days before she can get to the lab documented in this encounter Plan of Treatment Upcoming Encounters Date Type Department Care Team (Late st Contact Info) Description 08/28/2024 11:00 AM EST [facility] [address] [place] [address] Erica Ventura PA [address] [facility] [address] [place] [address] documented as of this encounter Visit Diagnoses Not on filedocumented in this encounter Additional Health Concerns Assessment Noted Time A fall risk assessment has been complete d for the patient 09/13/2022 1:03 PM EST A Body Mass Index follow-up plan has been documented for the patient 09/13/2022 1:44 PM EST documented as of this encounter Care Teams Qa Tech Relationship Specialty Start Date End Date Jaquan Conley MD [address] [place] [address] PCP - General 11/28/20 documented as of this encounter
--- OUTSIDE RECORDS SUMMARY | 2024-05-30 08:39 | XMS_ITS | Encounter Summary ---
Author Organization [facility] Address [address] [place] [address] Care Team Providers Care City Magistrate Name Role Phone Jaquan Conley MD Primary Care Provider + [phone] Encounter Details Date Type Department Care Team (Latest Contact Info) Description 01/27/2024 Travel Social History Tobacco Use Types Packs/Day [...] 08/28/2024 11:00 AM EST Office [facility] [address], [address] [place] [address] Erica Ventura PA [address] [place] [address] documented as of this encounter Visit Diagnoses Not on filedocumented in this encounter Additional Health Concerns Assessment Noted Time A fall risk assessment has been complete d for the patient 06/20/2023 12:51 PM EST A Body Mass Index follow-up plan has been documented for the patient 01/27/2024 1:29 PM EDT documented as of this encounter Care Teams City Magistrate Relationship Specialty Start Date End Date Jaquan Conley MD [address] [place], [place] [id number] PCP - General 11/28/20 documented as of this encounter
--- OUTSIDE RECORDS SUMMARY | 2024-05-30 08:39 | XMS_ITS | Encounter Summary ---
Author Organization [facility] Address [address] [place] [address] Care Team Providers Care Computed Tomography Technician Name Role Phone Jaquan Conley MD Primary Care Provider + [phone] Encounter Details Date Type Department Care Team (Late st Contact Info) Description 04/03/2024 Telephone [facility] [address], [address] [place] [address] Marilyn Valencia, SIZING END BANDER [address] [facility] [address] [place] [address] Social History Tobacco Use Types [...] Miscellaneous Notes * Telephone Encounter - Rosamaria Purcell CDE, RD - 04/03/2024 3:08 PM EDT Updated rx to 0.5 mg once weekly and re sent to [facility]. Called pt to inform that rx was updated and should be able to fill now that rx has dosing for 0.5 mg weekly documented in this encounter Plan of Treatment Upcoming Encounters Date Type Department Care Team (Late st Contact Info) Description 08/28/2024 11:00 AM EST Office Visit [facility] Endocrinology [address], [address] [place] [address] Erica Ventura PA [address] [place] [address] documented as of this encounter Visit Diagnoses Diagnosis Type 2 diabetes mellitus with other specified complication, with long-term current use of insulin ([facility]) documented in this encounter Additional Health Concerns Assessment Noted Time A fall risk assessment has been complete d for the patient 06/20/2023 12:51 PM EST A Body Mass Index follow-up plan has been documented for the patient 01/27/2024 1:29 PM EDT documented as of this encounter Care Teams Computed Tomography Technician Relationship Specialty Start Date End Date Jaquan Conley MD [address] [place] [address] PCP - General 11/28/20 documented as of this encounter
--- OUTSIDE RECORDS SUMMARY | 2024-05-30 08:39 | XMS_ITS | Encounter Summary ---
Author Organization [facility] Address [address] [place] [address] Care Team Providers Care Voting Machine Repairer Name Role Phone Jaquan Conley MD Primary Care Provider + [phone] Encounter Details Date Type Department Care Team (Late st Contact Info) Description 08/13/2021 Telephone [facility] Endocrinology [address] [facility], [address] [place] [address] Erica Izquierdo, ASSEMBLY CLEANER [address] [address] Social History Tobacco Use Types Packs/Day [...] Description 08/28/2024 11:00 AM EST Office Visit [facility] Endocrinology [address], [address] [place] [address] Erica Ventura, PA [address] [facility] [address] [place] [address] documented as of this encounter Visit Diagnoses Diagnosis 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
--- OUTSIDE RECORDS SUMMARY | 2024-05-30 08:39 | XMS_ITS | Encounter Summary ---
Author Organization [facility] Address [address] [place] [address] Care Team Providers Care Steel Erector Apprentice Name Role Phone Jaquan Conley MD Primary Care Provider + [phone] Reason for Visit * Reason Comments Diabetes Encounter Details Date Type Department Care Team (Late st Contact Info) Description 12/16/2022 12:40 PM EDT Office Visit [facility] [address], [address] [place] [address] Erica Ventura PA [address] [facility] [address] [place] [address] Hyperglycemia (Primary Dx); Nephropathy; Retinopathy; Essential hypertension; Hyperlipidemia, unspecified hyperlipidemia type Social History Tobacco Use Types Packs/Day [...] Sign Reading Time Taken Comments Blood Pressure 129/85 12/16/2022 12:44 PM EDT Pulse 82 12/16/2022 12:44 PM EDT Temperature - - Respiratory Rate - - Oxygen Saturation - - Inhaled Oxygen Concentration - - Weight 71.8 kg (158 lb 4.6 oz) 12/16/2022 12:44 PM EDT Height - - Body Mass Index 26.34 05/13/2022 12:58 PM EDT documented in this encounter Miscellaneous Notes * Patient Instructions - Erica Valdivia PA - 12/16/2022 12:40 PM EDT -Call the diabetes education team with any questions or concerns [phone] * Progress Notes - Erica Valdivia PA - 12/16/2022 12:40 PM EDT Subjective Crystal Archer is a 32 y.o. female who presents for an follow up evaluation of Diabetes Mellitis Type 1. Patient was diagnosed at age 12 . Current symptoms/problems include hyperglycemia. History noncompliance, substance abuse, multiple DKA events, CKD5/ESRD, Tobacco Abuse, December 2019- Gastricsleeve for wt loss-> dropped from 390's to 138 pounds, Diabetes Today A1c 5.3% from 5.1% from 4.8% 05/08 from 5.5% 12/2021 -Continues with manual insulin pump suspensions, daily average decreased again from 3x to 2x daily,previous 12 times per day 05/2022, with suspension duration average 12 minutes -September [address] peritoneal dialysis catheter, [facility] is healing okay, is making it difficult to find placement for both insertion and CGM sites -[facility] needs to repeat C-peptide today to obtain new insulin pump -She did complete an eye exam last month after a black floater started in her left eye, was recommended either injections or laser for bleeding, however patient declined due to past pain with this interventions, patient reached agreement with ophthalmology -She is now on [facility] renal transplant list since doing dialysis, [facility] is going to try to be placedon 's transplant list Current treatment includes insulin pump Tandem Basal IQ 00:00 1.30u/hr 08:00 1.6 units/hr 12:00 1.6u/hr 22:00 1.6u/hr CHO Ratio 1:10 Correction Factor: 1:40 > 120 TDD: 13.01 units/day from 21.9 units/day last office visit from 35 units last office visit Basal: 100% Food Bolus: 0%, Correction Bolus 0% AIT: 4 hours CGM: average B; % In Target (80-140) 61%, Above Target (>140) 36%, Below Target (<80) 3% Known diabetic complications: nephropathy,peripheral neuropathy, and Retinopathy Compliance at present is estimated to be fair- wearing pump and continuous glucose monitor consistently, 100% basal at this time Cardiovascular risk factors: diabetes mellitus, dyslipidemia, hypertension and smoking/ tobacco exposure Is she on KAYLAH inhibitor or angiotensin II receptor amara? No ESRD on PD Is she on a StatinYes Current diet: {diet habits:in general, an unhealthy diet and on average, 1 meals per day Current exercise: {exercise types:no regular exercise Home blood sugar records: CGM, see above -Hypoglycemic events:Yes, on occasion, will then suspend pump; hypoglycemia awareness intact -Severe Hypoglycemic events: Denies -DKA events: Yes, multiple events, denies any recent Date of Last Eye Exam: 12/07 Date of Last Foot Exam: 12/07 What current meter are you using?: one touch What pump type do you have?: tandem What type of sensor do you have?: dexcom When did you have labs last?: 12/07 The following portions of the chart were [...] 589 (HH) POCT Hemoglobin A1C Date Value 12/16/2022 5.3 % 09/13/2022 5.1 % 05/13/2022 4.8 % 11/26/2020 6.1 07/30/2020 5.0 04/28/2020 5.4 [...] Type 1, is controlled. A1C at goal Rx changes: none, continue intensive insulin delivery with pump -Reviewed basal IQ pump suspension when detecting imminent hypoglycemia or active hypoglycemia, reviewed risks of prolonged manual suspensions -Discussed other sites for CGM and insertion sets including flanks and upper arms -Continue using CGM to test BG 4+ times daily, receives Dexcom through DME, backup meter supplies for use as needed in CGM failure -Routine labs up to date and monitored by nephrology for dialysis -annual eye exam up to date, see media for report -Follow up 3 months #Nephropathy/ESRD on PD -requiring PD daily, followed by nephrology -Reviewed role of good blood glucose and blood pressure control in preserving renal function #Retinopathy -She is aware of the risks associated with untreated retinopathy -continue good blood pressure and blood glucose control #HTN -controlled, blood pressure today: 129/85 -continue antihypertensives as prescribed, reviewed PD role in blood pressure control # Hyperlipidemia -Stable, continue on statin, patient [...] cgm. I personally spent a total of 32 minutes on this encounter. This time includes face to face with patient, counseling and discussion and/or coordination of care. Electronically signed by: ANDREA Kumari [facility] [address] [place] [address]. [address] [place]. [address] PHONE [phone] FAX: [phone] documented in this encounter Plan of Treatment Upcoming Encounters Date Type Department Care Team (Late st Contact Info) Description 08/28/2024 11:00 AM EST Office Visit [facility] Endocrinology [address] [place] [address], [address] [place] [address] [place] [address] [place] [address] [place] [address] documented as of this encounter Procedures Procedure Name Priority Date/Time Associated Diagnosis Comments POCT GLYCOSYLATED HEMOGLOBIN (HGB A1C) Routine 12/16/2022 12:52 PM EDT Hyperglycemia documented in this encounter Results * POCT glycosylated hemoglobin (Hb A1C) docked device (12/16/2022 12:52 PM EDT) POCT Hemoglobin A1C 5.3 4.4-6.6 % % [facility] Kit Lot Number [id number] [facility] Kit Expiration Date [address] [facility] Blood Venous blood specimen / Unknown 12/16/2022 12:52 PM EDT Erica MENDEZ POINT OF CARE TEST EN TER/EDIT ORDERABLES Final Result Performing Organization Address City/State/[facility] Co de Phone Number [facility]ALTHCARE [facility] [address] [place] [address] documented in this encounter Visit Diagnoses Diagnosis Hyperglycemia- Primary Other abnormal glucose Nephropathy Nephritis and nephropathy, not specified as acute or chronic, with unspecified pathological lesion in kidney Retinopathy Unspecified background retinopathy Essential hypertension Unspecified essential hypertension Hyperlipidemia, unspecified hyperlipidemia type documented in this encounter Additional Health Concerns Assessment Noted Time A fall risk assessment has been complete d for the patient 12/16/2022 12:47 PM EDT A Body Mass Index follow-up plan has been documented for the patient 12/16/2022 1:35 PM EDT documented as of this encounter Care Teams Steel Erector Apprentice Relationship Specialty Start Date End Date Jaquan Conley MD [address] [place] [address] PCP - General 11/28/20 documented as of this encounter
--- OUTSIDE RECORDS SUMMARY | 2024-05-30 08:39 | XMS_ITS | Encounter Summary ---
Author Organization [facility] Address [address] [place] [place] [id number] Care Team Providers Care Rn Perioperative Name Role Phone Jaquan Conley MD Primary Care Provider + [phone] Reason for Visit * Reason Onset Date Comments Med Refill 07/26/2022 Encounter Details Date Type Department Care Team (Late st Contact Info) Description 07/26/2022 Refill [facility] Diabetes Education [address] [place] [address] Erica Ventura PA [address] [facility] [address] [place] [address] Type 1 diabetes mellitus with [...] Encounter - Rosamaria Purcell CDE, RD - 07/26/2022 2:38 PM EST Received PA request from [facility] in [place] for lantus. Last rx for lantus [facility] [place]. Updated med list and switched to levemir per [place] medicaid formulary change. 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
--- OUTSIDE RECORDS SUMMARY | 2024-05-30 08:39 | XMS_ITS | Encounter Summary ---
Author Organization [facility] Address [address] [place] [address] Care Team Providers Care Music Therapist Name Role Phone Jauqan Conley MD Primary Care Provider + [phone] Encounter Details Date Type Department Care Team (Latest Contact Info) Description 12/21/2021 Travel Social History Tobacco Use Types Packs/Day [...] 11:00 AM EST [facility] [address], [address] [place] [address] Erica Ventura PA [address] [place] [address] documented as of this encounter Visit Diagnoses Not on filedocumented in this encounter Additional Health Concerns Assessment Noted Time A fall risk assessment has been complete d for the patient 12/21/2021 12:59 PM EDT documented as of this encounter Care Teams Music Therapist Relationship Specialty Start Date End Date Jaquan Conley MD [address] [place], [place] [id number] PCP - General 11/28/20 documented as of this encounter
[2024-05-30 08:50] LABS: Basophils % 0.6 % (0.1-2.0); Eosinophils % 0.5 % (0.1-12.0); Hematocrit 38.8 % (37.0-47.0); Lymphocytes # 0.6 K/mm3 (0.7-4.5); Lymphocytes % 21.7 % (10-50); Mean Corpuscular HGB Conc 33.5 g/dL (31.8-35.4); Mean Corpuscular Hemoglobin 33.2 pg (27.0-31.2); Mean Corpuscular Volume 99.2 fl (81-99); Monocytes # 0.1 K/mm3 (0.1-1.0); Neutrophils # 2.1 K/mm3 (1.8-7.8); Neutrophils % 73.2 % (37.0-80.0); Platelet Count 168 K/mm3 (142-424); Red Blood Count 3.91 M/mm3 (4.20-5.40); White Blood Count 2.9 K/mm3 (4.8-10.8)
[2024-05-30 09:37] LABS: Alanine Aminotransferase 28 U/L (12-78); Albumin Level 4.1 g/dl (3.5-5.0); Albumin/Globulin Ratio 2.1 (1.1-1.8); Alkaline Phosphatase 76 U/L (38-126); Anion Gap 14.1 mEq/L (5-15); Aspartate Amino Transferase 24 U/L (14-36); Bilirubin,Total 0.7 mg/dl (0.2-1.3); Blood Urea Nitrogen 12 mg/dl (7-17); Calcium 9.4 mg/dl (8.4-10.2); Carbon Dioxide 19 mmol/L (22.0-30.0); Chloride 110 mmol/L (98-107); Estimated Glomerular Filt Rate 82 ml/min (>60); GFR (African American) 99 ML/MIN (>60); Glucose 182 mg/dl (74-100); Magnesium 1.4 mg/dl (1.6-2.3); Phosphorous 2.8 mg/dl (2.5-4.5); Potassium 5.1 mmoL/L (3.5-5.1); Sodium 138 mmol/L (136-145); Total Protein,Serum 6.1 g/dl (6.3-8.2)
[2024-06-03 22:15] LABS: Tacrolimus (FK506), Blood 11.8 ng/mL (2.0-20.0)
== END 2024-05-30 23:59 | disposition home or self-care (01) ==
LOC: LAB 08:27
PROVIDERS: Visit Provider Nurse Practitioner Family
DX: E78.5 Hyperlipidemia, unspecified (principal); Z94.0 Kidney transplant status; E11.8 Type 2 diabetes mellitus with unspecified complications; I10 Essential (primary) hypertension; Z01.89 Encounter for other specified special examinations; Z79.899 Other long term (current) drug therapy; Z72.0 Tobacco use; Z79.85 Long-term (current) use of injectable non-insulin antidiabetic drugs
CPT/HCPCS: 36415; 80053; 80197; 83735; 84100; 85025

== ENCOUNTER 2024-06-04 07:51 | Outpatient (CLI) | payer MEDICAID, SELFPAY ==
--- OUTSIDE RECORDS SUMMARY | 2024-06-04 07:54 | XMS_ITS | Encounter Summary ---
Author Organization [facility] Address [address] [place] [address] Care Team Providers Care Registered Nurse Cardiac Telemetry Name Role Phone Unavailable Primary Care Provider [...] release of HIV test results or diagnoses. [id number] Health Encounter Details Date Type Department Care Team (Late st Contact Info) Description 09/06/2023 Chart Note [facility] Kidney Transplant at [address], [address] [place] [address] Bernardo White MA Ron w [facility] [address] Social History Tobacco Use Types Packs/Day Years [...] - 09/06/2023 8:52 AM EST [place] [address] New Kidney txp referral [facility] [place] [...]
--- OUTSIDE RECORDS SUMMARY | 2024-06-04 07:54 | XMS_ITS | Encounter Summary ---
Author Organization [facility] Address [address] [place] [address] Care Team Providers Care Smutter Name Role Phone Unavailable Primary Care Provider [...] release of HIV test results or diagnoses. [id number] Health Encounter Details Date Type Department Care Team (Late st Contact Info) Description 10/13/2023 Abstract [facility] Kidney Transplant at [address], [address] [place] [address] Leticia Gregory ESRD (end stage renal disease) on dialysis ([facility]) (Primary Dx) Social History Tobacco Use Types [...] finished. CT ABD/PELV from 05/21/2023 requested from [facility] at [facility]. [facility] to push image to [facility] PACS. Sent email to PACS to mergeinto patient's chart. documented in this encounter Plan of Treatment Not on file documented as of this encounter Visit Diagnoses Diagnosis ESRD (end stage renal disease) on dialysis ([facility])- Primary End stage renal disease documented in this encounter
--- OUTSIDE RECORDS SUMMARY | 2024-06-04 07:54 | XMS_ITS | Encounter Summary ---
Author Organization [facility] Address [address] [place] [address] Care Team Providers Care Guest Experience Representative Name Role Phone Unavailable Primary Care [...] release of HIV test results or diagnoses. [id number] Health Encounter Details Date Type Department Care Team (Late st Contact Info) Description 09/16/2023 Telephone [facility] Kidney Transplant at [address], [address] [place] [address] Bernardo White MA Social History [...]
--- OUTSIDE RECORDS SUMMARY | 2024-06-04 07:54 | XMS_ITS | Encounter Summary ---
Author Organization [facility] Address [address] [place] [address] Care Team Providers Care Maintenance Apprentice Name Role Phone Unavailable Primary Care Provider [...] release of HIV test results or diagnoses. [id number] Health Encounter Details Date Type Department Care Team (Latest Contact Info) Description 10/17/2023 2:37 PM EDT - 10/17/2023 11:59 PM EDT Hospital Encounter [facility] Radiology [address] [place] [address] System, Provider Not In Discharge Disposition: [...]
--- OUTSIDE RECORDS SUMMARY | 2024-06-04 07:54 | XMS_ITS | Encounter Summary ---
Author Organization [facility] Address [address] [place] [address] Care Team Providers Care Edge Glue Machine Tender Name Role Phone Unavailable Primary [...] release of HIV test results or diagnoses. [id number] Health Encounter Details Date Type Department Care Team (Late st Contact Info) Description 09/06/2023 Telephone [facility] Kidney Transplant at [address], [address] [place] [address] Bernardo White MA Social History [...] EST This FEDERICO sent referring office an [employer] fax to inform of referral acceptance.This FEDERICO scanned into media tab [id number]. documented in this encounter Plan of Treatment Not on file documented as of this encounter Visit Diagnoses Not on filedocumented in this encounter
--- OUTSIDE RECORDS SUMMARY | 2024-06-04 07:54 | XMS_ITS | Encounter Summary ---
Author Organization [facility] Address [address] [place] [address] Care Team Providers Care Business Intelligence Architect Name Role Phone Unavailable Primary Care Provider [...] release of HIV test results or diagnoses. [id number] Health Encounter Details Date Type Department Care Team (Late st Contact Info) Description 10/03/2023 Telephone [facility] Kidney Transplant at [address], [address] [place] [address] Bernardo White MA Social History [...] PM EDT Email address for video link [email or web address] Kidney Transplant Referral Questionnaire Basic Info Previously [...] Where do you normally receive your medical care?[facility] stuff TAD or [facility] Kidney biopsy (When? Where) [facility] Stress Test :( When? Where?) (Only obtain if in last 12 months) yes Echocardiogram: (When? Where?) (Only obtain if in last 12 months) yes Routine Health Maintenance - Remind patient to update as need PAP: mar 2023 Mammogram: mar 2023 Colonoscopy (Where? When?): no Dental/Wear Dentures: no COVID Vaccine: no Hepatitis B vaccine series: no Additional Information:. Living Donor(s): no Reminders ([facility] Appointments ONLY): Long appointment , eat lunch [...]
--- OUTSIDE RECORDS SUMMARY | 2024-06-04 07:54 | XMS_ITS | Encounter Summary ---
Author Organization [facility] Address [address] [place] [address] Care Team Providers Care Veneer Lathe Operator Name Role Phone Unavailable Primary Care [...] release of HIV test results or diagnoses. [id number] Health Encounter Details Date Type Department Care Team (Late st Contact Info) Description 09/08/[address] [facility] Kidney Transplant at [address], [address] [place] [phone] Salomón Small Transplant Eval Authorization Social [...] Transplant Eval Authorization Organ:kidney Insurance Co:[facility] [employer] Mechanical Engineer: Phone: Fax: Auth#:[id number] Travel/Lodging:n Dates of Service:09/07/23 to 03/05/24 Additional Info: Evaluation for Patient/donor can be done Cleared for eval Test at [facility] documented in this encounter Plan of Treatment Not on file documented as of this encounter Visit Diagnoses Not on filedocumented in this encounter
--- OUTSIDE RECORDS SUMMARY | 2024-06-04 07:54 | XMS_ITS | Encounter Summary ---
Author Organization [facility] Address [address] [place] [address] Care Team Providers Care Cash Applications Clerk Name Role Phone Unavailable Primary Care [...] release of HIV test results or diagnoses. [id number] Health Encounter Details Date Type Department Care Team (Late st Contact Info) Description 11/30/2023 Chart Note [facility] Kidney Transplant at [address], [address] [place] [phone] Leticia Gregory Chart and excel sheet [...]
--- OUTSIDE RECORDS SUMMARY | 2024-06-04 07:54 | XMS_ITS | Encounter Summary ---
Author Organization [facility] Address [address] [place] [address] Care Team Providers Care Capacity Manager Name Role Phone Unavailable Primary Care [...] release of HIV test results or diagnoses. [id number] Health Encounter Details Date Type Department Care Team (Late st Contact Info) Description 11/21/2023 Telephone [facility] Kidney Transplant at [address], [address] [place] [address] Bernardo White MA Social History [...] TXP. This MA moved PT to December [facility] OR clinic. RN notified documented in this encounter Plan of Treatment Not on file documented as of this encounter Visit Diagnoses Not on filedocumented in this encounter
--- OUTSIDE RECORDS SUMMARY | 2024-06-04 07:54 | XMS_ITS ---
Author Name [facility] Address [address] [place] [address] Phone [phone] Organization [facility] e, NA DOCUMENT DISCLAIMER Multiple document versions may exist, please be sure you review the latest version. The information in the [facility] Continuity of Care Document represents a summary [...]
--- OUTSIDE RECORDS SUMMARY | 2024-06-04 07:54 | XMS_ITS | Clinical Summary ---
Author Organization [facility] Address [address] [place] [address] Care Team Providers Care Civil Engineering Designer Name Role Phone Unavailable Primary Care [...] therelease of HIV test results or diagnoses. [id number] Allergies Active Allergy Reactions Criticality Noted [...] - Td or Tdap) 09/28/2033 09/29/2023 Insurance [facility]
--- OUTSIDE RECORDS SUMMARY | 2024-06-04 07:54 | XMS_ITS | Encounter Summary ---
Author Organization [facility] Address [address] [place] [address] Care Team Providers Care Hand Riveter Name Role Phone Unavailable Primary Care Provider [...] release of HIV test results or diagnoses. [id number] Health Encounter Details Date Type Department Care Team (Late st Contact Info) Description 12/08/2023 Chart Note [facility] Kidney Transplant at [address], [address] [place] [address] Vivian Dee RN Received a [...]
--- OUTSIDE RECORDS SUMMARY | 2024-06-04 07:54 | XMS_ITS | Clinical Summary ---
Author Organization [employer] Address [address] [place] [address] Care Team Providers Care Collection Clerk Name Role Phone Unavailable Primary Care [...] Date Blaine rded Speak language other than Swazi at home Not on file 07/30/2023 Want [...] T d or Tdap) 02/16/2028 02/15/2018 Insurance [facility] Advance Directives For more information, please contact: [phone] * Full Code (Latest Code Status on File) Date Activated Date Inactivated Comments 09/23/2022 6:27 AM 09/23/2022 11:31 AM
--- OUTSIDE RECORDS SUMMARY | 2024-06-04 07:54 | XMS_ITS | Encounter Summary ---
Author Organization [facility] Address [address] [place] [address] Care Team Providers Care Power Saw Mechanic Name Role Phone Unavailable Primary Care [...] release of HIV test results or diagnoses. [id number] Health Encounter Details Date Type Department Care Team (Late st Contact Info) Description 10/20/2023 Chart Note [facility] Kidney Transplant at [address], [address] [place] [address] Vivian Dee RN Anemia due to chronic kidney disease, on chronic dialysis ([facility]) (Primary Dx); Depression, unspecified depression type; History of bariatric surgery; History of drug abuse ([facility]); Mixed hyperlipidemia; Pre-transplant evaluation for kidney transplant; Type 2 diabetes mellitus with chronic kidney disease on chronic dialysis, with long-term current use of insulin ([facility]); Hypertension secondary to other renal disorders Social [...] to chronic kidney disease, on chronic dialysis ([facility])- Primary Depression, unspecified depression type History of bariatric surgery Bariatric surgery status History of drug abuse ([facility]) Other, mixed, or unspecified nondependent drug abuse, in remission Mixed hyperlipidemia Pre-transplant evaluation for kidney transplant Type 2 diabetes mellitus with chronic kidney disease on chronic dialysis, with long-term current use of insulin ([facility]) Hypertension secondary to other renal disorders documented in this encounter
--- OUTSIDE RECORDS SUMMARY | 2024-06-04 07:54 | XMS_ITS | Encounter Summary ---
Author Organization [facility] Address [address] [place] [address] Care Team Providers Care Beer Coil Cleaner Name Role Phone Unavailable Primary Care Provider [...] release of HIV test results or diagnoses. [id number] Health Encounter Details Date Type Department Care Team (Late st Contact Info) Description 10/24/2023 Telephone [facility] Kidney Transplant at [address], [address] [place] [address] Sarai Montiel MA Social History [...]
--- OUTSIDE RECORDS SUMMARY | 2024-06-04 07:54 | XMS_ITS ---
Author Organization [facility] Address [address] [place] [address] Care Team Providers Care Political Science Faculty Member Name Role Phone Unavailable Primary Care Provider Unavailabl e Transplant Episode Kidney Candidate [facility] [place] Referred on 09/06/2023 Marked as Ineligible on 12/08/2023 Reason: Transplanted at Another Center Kidney CoordinatorVivian Dee RN Phone: N/A Fax: N/A Email: N/A Scores Score Value Updated Exceptions/Reas ons CPRA Not available EPTS (Calc) 28 06/04/2024 Care Team Name Role Phone Fax Email Vivian Dee RN Kidney Coordinator N/A N/A N/A Amish Ritchie MD Txp Patcher Bowling Ball N/A N/A N/A Vivian Dee RN Txp Pre Coordinator N/A N/A N/A Mukul Stevens MD Referring Physician N/A N/A N/A Events Pre-Transplant Referred: 09/06/2023 Dialysis History Dialysis History Start End Type Comments Center 11/08/2022 Peritoneal [facility] D[facility] Information Center Phone Fax Address [facility] [phone] [address] [facility], [address] [place] [address]
--- OUTSIDE RECORDS SUMMARY | 2024-06-04 07:55 | XMS_ITS | Encounter Summary ---
Author Organization [employer] [facility] [employer] Address [address] [place] [address] Care Team Providers Care Irrigator Head Name Role Phone Unavailable Primary Care Provider Unavailabl e Encounter Details Date Type Department Care Team (Late st Contact Info) Description 01/05/2020 Transcribed Document [facility] [address] [place] [address] ProviderLaury MD [address] [place] [address] Social History Tobacco Use Types [...] your book, please call the Center at [phone]. documented in this encounter Plan of Treatment Not on file documented as of this encounter Visit Diagnoses Not on filedocumented in this encounter
--- OUTSIDE RECORDS SUMMARY | 2024-06-04 07:55 | XMS_ITS | Encounter Summary ---
Author Organization [employer] [facility] Address [address] [place] [address] Care Team Providers Care Flight Attendant Ramp Name Role Phone Unavailable Primary Care Provider Unavailabl e Encounter Details Date Type Department Care Team (Late st Contact Info) Description 01/05/2020 Transcribed Document [facility] Family Medicine [address] [place] [address] ProviderLaury MD [address] [place] [address] Social History Tobacco Use Types Packs/Day [...]
--- OUTSIDE RECORDS SUMMARY | 2024-06-04 07:55 | XMS_ITS | Encounter Summary ---
Author Organization [facility] [employer] [facility] Address [address] [place] [address] Care Team Providers Care Scrub Wheel Operator Name Role Phone Unavailable Primary Care Provider Unavailabl e Encounter Details Date Type Department Care Team (Late st Contact Info) Description 01/05/2020 Transcribed Document [facility] Family Medicine [address] [place] [address] ProviderLaury MD [address] [place] [address] Social History Tobacco Use Types [...] 01/05/2020 7:38 EDT Electronically signed by Rochelle [facility] Conversion Freight Associate Cerner at 11/02/2022 10:09 AM CDT documented in this encounter Plan of Treatment Not on file documented as of this encounter Visit Diagnoses Not on filedocumented in this encounter
--- OUTSIDE RECORDS SUMMARY | 2024-06-04 07:55 | XMS_ITS | Encounter Summary ---
Author Organization [employer] [facility] Address [address] [place] [address] Care Team Providers Care Automotive Light Mechanic Name Role Phone Unavailable Primary Care Provider Unavailabl e Encounter Details Date Type Department Care Team (Late st Contact Info) Description 01/19/2020 Transcribed Document [facility] Medicine [address] [place] [address] ProviderLaury MD [address] [place] [address] Social History Tobacco Use Types Packs/Day [...] Laury ProviderMD - 01/19/2020 3:30 PM CDT [address] [address] FREDDIE RUGGIERO :1990 Visit Time:01/19/2020 [...] pharmacies and retail stores. ??? Eat bland, kdwr-tf-mfoblf foods in small amounts as you are [...] and water are not available, use hand agent spa desk. Make sure that everyone in your household washes their hands frequently. ??? Take llxd-uxe-nxjezqe and prescription medicines only as told by [...] and water are not available, use hand agent spa desk. Make sure that everyone in your household [...] 07/30/2016 Document Revised: 12/12/2018 Document Reviewed: 12/12/2018 [employer] Interactive Patient Education ?? 2020 [employer]. Hypoglycemia Hypoglycemia occurs when the level of [...] instructions at home: General instructions ??? Take cvhl-pbj-zzfpxsk and prescription medicines only as told by [...] 07/04/2006 Document Revised: 12/26/2018 Document Reviewed: 08/06/2016 [employer] Interactive Patient Education ?? 2020 [employer]. Emergency Awareness and Preventative Care STROKE is [...] Assistance with quitting is available by contacting 9-677-AMSI-NOW. This is a free resource providing counseling, [...] range between ( 1.0 and 7.0 ) [place]y #: 0.73 K/uL -- Normal range between ( 0.24 and 0.82 ) Eos #: 0.24 K/uL -- Normal range between ( 0.04 and 0.54 ) [place] %: 7.3 % -- Normal range between [...] ) Urine Bilirubin Dipstick: Negative Urine Specific [place]: 1.012 -- Normal range between ( 1.005 [...] was given the opportunity to ask questions. Patient/Sexual Assault Response Coordinator Name: Patient/Sexual Assault Response Coordinator Signature: Relationship to Patient: Clinician/Hospital Sexual Assault Response Coordinator Signature: Date: Electronically signed by Rochelle [facility] Conversion Benefits Assistant Keysha at 11/02/2022 10:10 AM CDT documented in this encounter Plan of Treatment Not on file documented as of this encounter Visit Diagnoses Not on filedocumented in this encounter
--- OUTSIDE RECORDS SUMMARY | 2024-06-04 07:55 | XMS_ITS | Encounter Summary ---
Author Organization [employer] [facility] Address [address] [place] [address] Care Team Providers Care Sanitary Napkin Machine Tender Name Role Phone Unavailable Primary Care Provider Unavailabl e Reason for Visit * Auth/Cert Specialty Diagnoses / Procedures Referred By Xochitl burt Referred To Contact Diagnoses Chronic kidney disease, stage IV (severe) (HCC) Chronic kidney disease, Procedures MD LAP INSERTION TUNNELED INTRAPERITONEAL CATHETER LAPAROSCOPY, WITH PERITONEAL DIALYSIS CATHETER INSERTION Cb Renee MD [address] [place] [address] Phone: tel: fax: Referral ID Status Reason Start Date Expiration Date Visits Re quested Visits Authorized [id number] 09/13/2022 1 1 Encounter Details Date Type Department Care Team (Late st Contact Info) Description 09/23/2022 6:29 AM EST - 09/23/2022 10:31 AM EST Hospital Encounter [facility] Operating Room [address] [place] [address] Cb Renee MD [address] [place] [address] Discharge Disposition: Home or Self Care Social [...] for 24 hours or while taking narcotics CALLER * Attachments The following attachments cannot be sent through Care Everywhere. * General Anesthesia Adult Care After (Libyan) * Peritoneal Dialysis Catheter Placement Care After (Libyan) * Acetaminophen; Hydrocodone Capsules or Tablets (Libyan) documented in this encounter Medications at [...] this encounter H&P Notes * Mare Monteror, ACTIVITIES ASSISTANT - 09/23/2022 8:00 AM EST HPI History [...] ??? POC-EGFR 09/23/2022 8 mL/min/1.73M2 Final ??? Field Director 09/23/2022 [id number] Final ??? POC-Creatinine 09/23/2022 6.3 (A) 0.6 - 1.3 mg/dL Final No image results found. Assessment & Plan Renal failure DM Hyperparathyroidism Anemia HTN HLD Hyperkalemia Pt to proceed with surgery, DC home today. Electronically signed by: Mare Rodgers APRN, 09/23/2022 at 8:32 AM Cosigned by Cb Renee MD at 09/23/2022 2:25 PM EST CALLER CALLER Associated attestation - Cb Renee MD - 09/23/2022 1:25 PM CREW CALLER Patient seen and examined by myself. Agree [...] September 23, 2022 at [facility]. ?? Electronically signed by Annmarie Nowak CMA - 09/13/2022 - 10:14 AM EST ?? Patient?? Crystal Archer 32 year old female 1990 ?? [address] [facility] [address] [facility] [address] [facility] [address] ?? [phone] (M) [phone] (H) Comm Pref: Recent Visits with You 09/13/2022 Office Visit More...?? Significant History/Details?? Smoking Former Smoker (Quit Date: ) Smokeless Tobacco Never Used Alcohol Not Currently Preferred Language Libyan Specialty Comments Edit Show all No comments regarding your specialty Family Comments Edit None Care Team and Communications?? No referring provider ?? No PCP set ?? No other patient care team members ?? Visit Treatment Team Relationship Cb Renee MD Surgeon ? Recipients of Automatic ADT Notifications for This Admission Show All Admissions No notifications found. Social Determinants of Health?? Find [employer] Documents Created Type Source 04/11/2022 Continuity of Care Document?? [facility] 03/18/2022 Continuity of Care Document?? [facility] 03/17/2022 Continuity of Care Document?? [facility] Since Your Last Visit (Today)?? Sep [...] Labs and Imaging No resulted procedures found. CALLER documented in this encounter Miscellaneous Notes * Nursing Progress Notes - Yue Jacome RN - 09/23/2022 9:52 AM EST Pt has abd pad with binder CALLER * Op Note - Cb Renee MD - 09/23/2022 9:18 AM EST DATE OF PROCEDURE: 09/23/2022 PREOPERATIVE DIAGNOSIS: Chronic kidney disease. POSTOPERATIVE DIAGNOSIS: Chronic kidney disease. PROCEDURE PERFORMED: Laparoscopic placement of peritoneal dialysis catheter. POOL COORDINATOR: Wil Chawla. ANESTHESIA: General endotracheal. FINDINGS: The [...] was taken to Recovery in stable condition. /[id number] Cb Renee MD [facility]/ / [facility] [place] /[id number] CALLER documented in this encounter Plan of Treatment Not on file documented as of this encounter Procedures Procedure Name Priority Date/Time Associated Diagnosis Comments NOVA GLUCOSE POC Routine 09/23/2022 8:51 AM EST MD LAP INSERTION TUNNELED INTRAPERITONEAL CATHETER 09/23/2022 7:50 [...] Glucose, Nova Meter (09/23/2022 8:51 AM EST) [facility] POC-GLUCOSE 177(H) 70 - 110 mg/dL 09/23/2022 8:52 AM EST [facility] Comment:Notified Nurse RBV Field Director [id number] 09/23/2022 8:52 AM EST [facility] Blood WHOLE BLOOD / Unknown 09/23/2022 8:51 AM EST 09/23/2022 8:52 AM EST Narrative [facility] - 09/23/2022 8:52 AM EST Field Director ID is - [id number] us Cb Renee MD POINT OF CARE TEST ORDERABLES Fi nal Result [facility] [address] [place] [address] * POCT , urine (09/23/2022 7:42 AM EST) Pathologist [facility] POC, URINE HCG Negative Negative INTERNAL QC (VALID/INVALID ) Valid Kit Lot Number [id number] Expiration Date 09/15/2023 09/23/2022 7:42 AM EST us Pelon Mendoza MD FS_MODEL_IP_POINT OF CARE TEST ENTER/EDIT ORDERABLES Final Result * (ABNORMAL) POC-Creatinine (09/23/2022 7:39 AM EST) POC-EGFR 8 mL/min/1. 73M2 09/23/2022 7:47 AM [facility] Comment:Proceed with contras t if eGFR > 45 ml/min/1.73 when performed on the NovaSTAT strip Creatinine meter. Field Director [id number] 09/23/2022 7:47 AM EST [facility] POC-Creatinine 6.3(H) 0.6 - 1.3 mg/dL 09/23/2022 7:47 AM [facility] Blood 09/23/2022 7:39 AM EST 09/23/2022 7:47 AM EST [facility] - 09/23/2022 7:47 AM EST Field Director ID is - [id number] Cb Renee MD POINT OF CARE TEST ORDERABLES Fi nal Result Performing Organization Address [facility]/ZIP Co de Phone Number [facility] [address] [place] [address] * Glucose, iSTAT Meter (09/23/2022 7:39 AM EST) [facility] POC-GLUCOSE 87 70 - 105 mg/dL 09/23/2022 7:47 AM [facility] Blood 09/23/2022 7:39 AM EST 09/23/2022 7:47 AM EST Narrative [facility] - 09/23/2022 7:47 AM EST Field Director ID is - [id number] us Cb Renee MD POINT OF CARE TEST ORDERABLES Fi nal Result [facility] [address] [phone] * POC-Potassium (09/23/2022 7:39 AM EST) [facility] POC Potassium 4.5 3.5 - 4.9 mmol/L 09/23/2022 7:47 AM EST [facility] Blood 09/23/2022 7:39 AM EST 09/23/2022 7:47 AM EST Narrative [facility] - 09/23/2022 7:47 AM EST Field Director ID is - [id number] us Pelon Mendoza MD POINT OF CARE TEST ORDERAB LES Final Result Performing Organization Address [facility] Co de Phone Number [facility] [address] [phone] * ECG 12 lead (09/23/2022 7:13 AM EST) VENTRICULAR RATE EKG/MIN 72 BPM GE MUSE ATRIAL RATE (MCT) 72 BPM GE MUSE MD Interval 144 ms GE MUSE QRS-INTERVAL (MSEC) 76 ms GE MUSE QT Interval 410 ms GE MUSE QTC Interval 448 ms GE MUSE P Streetman 79 degrees GE MUSE R AXIS (MCT) 71 degrees GE MUSE T Wave Streetman 68 degrees GE MUSE [place] Diagnosis Normal sinus rhythm Normal ECG No previous ECGs available Confirmed by Lottie VU, GARFIELD (1979), fashion editor LEO VALDIVIA ([id number]) on 09/23/2022 3:18:05 PM GE MUSE 09/23/2022 7:13 AM EST 09/23/2022 3:18 PM EST us Cb Renee MD ECG ORDERABLES Final Result Performing Organization Address [facility] Co de Phone Number GE MUSE [...]
--- OUTSIDE RECORDS SUMMARY | 2024-06-04 07:55 | XMS_ITS | Encounter Summary ---
Author Organization [employer] [facility] [employer] Address [address] [place] [address] Care Team Providers Care Ball Point Splitter Name Role Phone Unavailable Primary Care Provider Unavailabl e Encounter Details Date Type Department Care Team (Late st Contact Info) Description 08/02/2022 Abstract [facility] [address] [facility] [address] [place] [address] John Garcia MD [address] [facility] [address] [place] [address] Social History Tobacco Use Types Packs/Day Years [...]
--- OUTSIDE RECORDS SUMMARY | 2024-06-04 07:55 | XMS_ITS | Encounter Summary ---
Author Organization [email or web address] Address [address] [place] [address] Care Team Providers Care Incident Response Specialist Name Role Phone Unavailable Primary Care Provider Unavailabl e Encounter Details Date Type Department Care Team (Late st Contact Info) Description 08/24/2019 Transcribed Document [facility] [place] [address] [place] [address] ProviderLaury MD [address] [place] [address] Social History Tobacco Use Types Packs/Day [...] - Historical ProviderMD - 08/24/2019 11:11 AM RESTAURANT HOST ESME Gutierrez IntraOp Summary Primary Physician: LARRY MARTINES MD-SUR Finalized Date/Time: 08/24/19 12:55:12 Pt. Name: BAHMAN FREDDIE FELICIA /Sex: 1990 Female Med Rec #: [id number] Physician: LARRY MARTINES MD-SUR Financial #: [id number] Pt. Type: O Room/Bed: [facility] Admit/Disch: 08/24/19 09:42:00 - Institution: [facility] Endo - Case Attendance Entry 1 Entry 2 Entry 3 Case Attendee LARRY MARTINES Childress, TOBI J, RN ELLIOTT MOURA TECH MD-SUR Role Performed Surgeon/Proceduralist, Color Control Supervisor, First Scrub, First First Time In 08/24/19 11:09:00 08/24/19 11:09:00 08/24/19 11:09:00 Time Out 08/24/19 11:15:00 08/24/19 11:15:00 08/24/19 11:15:00 Procedure Gastric Biopsy Esophagogastroduodenosco Esophagogastroduodenosco py, Gastric Biopsy py, Gastric Biopsy Other Attendee Superficial Wound Closed By: Last Modified By: ANGE Green RN Childress, TOBI J, RN Childress, TOBI J, RN 08/24/19 11:14:47 08/24/19 11:14:47 08/24/19 11:14:47 Entry 4 Case Attendee MARGRET MCCULLOUGH KITCHEN OPERATOR Role Performed KITCHEN OPERATOR/Nurse Video Specialist Time In 08/24/19 11:09:00 Time Out 08/24/19 11:15:00 Procedure Esophagogastroduodenosco py, Gastric Biopsy Other Attendee Superficial Wound Closed By: Last Modified By: ANGE Green RN 08/24/19 11:14:47 [facility] Endo - Case Attendance Audit 08/24/19 11:14:47 Quality Control Industrial Engineer: HOLMMARCIA Modifier: [email or web address] 1 <+> Time Out 1 <*> Procedure Gastric Biopsy 2 <+> Time Out 2 <*> Procedure Esophagogastroduodenoscopy, Gastric Biopsy 3 <+> Time Out 3 <*> Procedure Esophagogastroduodenoscopy, Gastric Biopsy 4 <+> Time Out 4 <*> Procedure Esophagogastroduodenoscopy, Gastric Biopsy 08/24/19 11:12:38 Quality Control Industrial Engineer: HOLMESTJ Modifier: HOLMESTJ <+> 1 Procedure 2 <*> Procedure Esophagogastroduodenoscopy 3 <*> Procedure Esophagogastroduodenoscopy 4 <*> Procedure Esophagogastroduodenoscopy 08/24/19 11:11:44 Quality Control Industrial Engineer: HOLMESTJ Modifier: HOLMESTJ 2 <+> Time In [...] Endo - Case Times Audit 08/24/19 11:13:59 Quality Control Industrial Engineer: HOLMESTJ Modifier: HOLMESTJ <+> 1 Out Room Time <+> 1 Stop Time <+> 1 Stop Time 08/24/19 11:11:59 Quality Control Industrial Engineer: HOLMESTJ Modifier: HOLMESTJ <+> 1 Start Time [facility] - Cultures and Spec Summary Entry 1 Cultrures and Specimens Specimen Ordered: Yes Last Modified By: ANGE Green RN 08/24/19 11:14:38 [facility] - Delays Entry 1 Delay Reason Other Duration 0 Minute(s) Comment NO DELAY Last Modified By: ANGE Green RN 08/24/19 11:09:48 [facility] - Delays Audit 08/24/19 11:09:48 Quality Control Industrial Engineer: JOHNATHANESTJ Modifier: HOLMESTJ <+> 1 Comment [facility] [...] Modified By: ANGE Green RN 08/24/19 11:09:51 [facility] Endo - Fire Risk Assessment Entry 1 Fire Info Surgical Site or 1- Yes Incision Above the Xyphoid Open O2 Source 1- Yes (Mask or Cannula) Available Ignition 1- Yes (ESU, Laser, Light Source) Fire Risk 3 Assessment Score Fire Score Fire Risk Yes Assessment Complete Fire Risk ANGE Green compliance mgr Verified By Fire Risk 08/24/19 11:10:00 Assessment Verified Date/Time Fire Risk High Risk Protocol Yes Implemented Standard Fire Yes Safety Precautions Followed Last Modified By: ANGE Green RN 08/24/19 11:10:04 [facility] Endo - General Case Stationary Equipment Mechanic 1 Case Information OR Endo 01 E Case Level 1 Room Verified Yes Wound Class II - Clean-Contaminated Specialty SN General Anesthesia Type MAC ASA Class 3 Diagnosis Preop Diagnosis GERD Postop Same As Preop No Postop Diagnosis normal EGD Last Modified By: ANGE Green RN 08/24/19 11:11:13 [facility] - General Case Data Audit 08/24/19 11:14:21 Quality Control Industrial Engineer: GEOVANNA Modifier: HOLMESTJ <+> 1 Postop Diagnosis [...] Endo - Intraoperative Assessment Audit 08/24/19 12:55:06 Quality Control Industrial Engineer: GEOVANNA Modifier: HOLMESTJ <+> 1 Prosthetic/Assistive Devices [facility] Endo - Intraoperative Equipment Entry 1 Type [...] Endo - Patient Positioning Audit 08/24/19 11:12:40 Quality Control Industrial Engineer: JOHNATHANESTJ Modifier: HOLMESTJ 1 <*> Procedure Esophagogastroduodenoscopy [...] Endo - Sign Out Audit 08/24/19 11:14:13 Quality Control Industrial Engineer: JOHNATHANESTJ Modifier: HOLMESTJ <+> 1 RN Sign [...] TOBI J, RN 08/24/19 11:12:34 08/24/19 11:12:34 [facility] Endo - Surgical Procedures Audit 08/24/19 11:14:04 Quality Control Industrial Engineer: GEOVANNA Modifier: HOLMESTJ <+> 1 Stop <+> 2 Stop [facility] Endo - Time Out Entry 1 Procedure [...] Modified By: ANGE Green RN 08/24/19 11:12:41 [facility] Endo - Time Out Audit 08/24/19 11:12:41 Quality Control Industrial Engineer: JOHNATHANESTGiacomo Modifier: HOLMESTJ 1 <*> Procedure to be Performed Esophagogastroduodenoscopy 08/24/19 11:12:26 Quality Control Industrial Engineer: JOHNATHANESTJ Modifier: HOLMESTJ 1 <*> Beta Renae [...] Confirms Information Case Comments <None> Finalized By: Edgar, ANGE J, RN Document Signatures Signed By: ANGE Green RN 08/24/19 11:14 ANGE Green RN 08/24/19 12:55 Unfinalized History Date/Time Username Reason for Unfinalizing Freetext Reason for Unfinalizing 08/24/19 12:54 GEOVANNA Correct Documentation Electronically signed by Rochelle [facility] Conversion Wireless Sales Expert Cerner at 11/02/2022 10:11 AM CDT documented in this encounter Plan of Treatment Not on file documented as of this encounter Visit Diagnoses Not on filedocumented in this encounter
--- OUTSIDE RECORDS SUMMARY | 2024-06-04 07:55 | XMS_ITS | Encounter Summary ---
Author Organization [employer] Address [address] [place] [address] Care Team Providers Care Porcelain Enamel Laborer Name Role Phone Unavailable Primary Care Provider Unavailabl e Encounter Details Date Type Department Care Team (Late st Contact Info) Description 01/07/2020 Transcribed Document [facility] Family Medicine [address] [place] [address] ProviderLaury MD [address] [place] [address] Social History Tobacco Use Types Packs/Day [...] Date 01/05/2020 14:12 Primary Care Provider ERIKA PERSAUD MD-INT Discharge Diagnosis Morbid obesity 01/05/2020 E66.01 ICD-10-CM Morbid obesity 01/04/2020 E66.01 ICD-10-CM Procedures SN - Proc - Procedure: Gastrectomy Sleeve Laparoscopic (01/04/20 09:17:21) Reason for Hospitalization is a 29-year-old patient with long term care social worker history of morbid obesity and CKD, has [...] Int Units = 1 Cap, Oral, Weekly [place] 7.5/325 oral every 6 hours as needed for pain. Zofran 8mg oral every 12 hours as needed for nausea. Prilosec 20mg oral daily. Starts tomorrow. [2] Code Status No Code Status Order on Record Condition on Discharge Stable Consulting Physicians LARRY JAIMES MD-ANS Current Diet Order No qualifying data available. Patient Discharge Summary Orders Discharge Follow Up Instructions: followup next weekCall for [id number] Follow Up Instructions: call office on tuesday [...]
--- OUTSIDE RECORDS SUMMARY | 2024-06-04 07:55 | XMS_ITS | Encounter Summary ---
Author Organization [employer] In [employer] Address [address] [place] [address] Care Team Providers Care Showroom Executive Director Name Role Phone Unavailable Primary Care Provider Unavailabl e Encounter Details Date Type Department Care Team (Late st Contact Info) Description 01/19/2020 Transcribed Document [facility] [place] [facility] [place] [address] ProviderLaury MD [address] [place] [id number] Social History Tobacco Use Types Packs/Day Years [...] On: 01/19/2020 8:59 EDT by CRISTOBAL HANSEN RN-Commercial Instructor Supervisor Readmission Questionnaire Patient Status at Discharge, Previous Admission : Inpatient Did Patient Leave AMA Pre Admission : No Readmission : Unplanned Readmission Reason: : Patient/caregiver decided on their own to come to ED ED Visit Between Hospitalization : No DC Destination, Previous Admission : Discharge To Care Management: Home/Residential/Correction or Self Care - (01/19/20 08:56:00) If [...] Was Readm Preventable : No CRISTOBAL HANSEN RN-Commercial Instructor Supervisor - 01/19/2020 8:59 EDT Electronically signed by Rochelle [facility] Conversion Psychological Stress Evaluator Cerner at 11/02/2022 9:56 AM CDT documented in this encounter Plan of Treatment Not on file documented as of this encounter Visit Diagnoses Not on filedocumented in this encounter
--- OUTSIDE RECORDS SUMMARY | 2024-06-04 07:55 | XMS_ITS | Encounter Summary ---
Author Organization [employer] Address [address] [place] [address] Care Team Providers Care Histologist Technologist Name Role Phone Unavailable Primary Care Provider Unavailabl e Encounter Details Date Type Department Care Team (Late st Contact Info) Description 12/28/2019 Transcribed Document [facility] [place] [address] [place] [address] ProviderLaury MD [address] [place] [address] Social History Tobacco Use Types [...] Policy Numbers : Insurance 1 Health Plan: [facility] Policy Number: [id number] Authorization Number: Insurance Primary Name : [facility] Policy Number: [id number] Authorization Status-Primary : Admit approved Reference Number-Primary : [id number] Authorization Number-Primary : [id number] Number of Days Authorized-Primary : 0 Day(s) [...]
--- OUTSIDE RECORDS SUMMARY | 2024-06-04 07:55 | XMS_ITS | Encounter Summary ---
Author Organization [employer] Address [address] [place] [address] Care Team Providers Care Recorder Helper Seismograph Name Role Phone Unavailable Primary Care Provider Unavailabl e Encounter Details Date Type Department Care Team (Late st Contact Info) Description 09/15/2021 Transcribed Document [facility] [place] [address] [place] [address] ProviderLaury MD [address] [place] [address] Social History Tobacco Use Types [...] - Historical ProviderMD - 09/15/2021 11:12 AM WELL SERVICES OPERATOR Broset Violence Assessment Entered On: 09/15/2021 12:44 EST Performed On: 09/15/2021 12:43 EST by AUSTIN AVILES RN Broset Violence Assessment Broset Violence Checklist of Symptoms : None Broset Violence Symptoms Subtotal : 0 Broset Violence Symptoms Indicator : Low risk (0) AUSTIN AVILES RN - 09/15/2021 12:43 EST Electronically signed by Rochelle [facility] Conversion Logistics Project Manager Cerner at 11/02/2022 10:10 AM CDT documented in this encounter Plan of Treatment Not on file documented as of this encounter Visit Diagnoses Not on filedocumented in this encounter
--- OUTSIDE RECORDS SUMMARY | 2024-06-04 07:55 | XMS_ITS | Encounter Summary ---
Author Organization [employer] Address [address] [place] [address] Care Team Providers Care Proofer Prepress Name Role Phone Unavailable Primary Care Provider Unavailabl e Encounter Details Date Type Department Care Team (Late st Contact Info) Description 01/04/2020 Transcribed Document [facility] [place] [facility] [place] [address] ProviderLaury MD [address] [place] [address] Social History Tobacco Use Types Packs/Day [...] Policy Numbers : Insurance 1 Health Plan: [facility] Policy Number: [id number] Authorization Number: [id number] Insurance Primary Name : [facility] Policy Number: [id number] Authorization Status-Primary : Admit approved Reference Number-Primary : [id number] Authorization Number-Primary : [id number] Number of Days Authorized-Primary : 0 Day(s) [...]
--- OUTSIDE RECORDS SUMMARY | 2024-06-04 07:55 | XMS_ITS | Encounter Summary ---
Author Organization [employer] Address [address] [place] [address] Care Team Providers Care Social And Political Studies Professor Name Role Phone Unavailable Primary Care Provider Unavailabl e Encounter Details Date Type Department Care Team (Late st Contact Info) Description 01/18/2020 Transcribed Document [facility] [place] [address] [place] [address] ProviderLaury MD [address] [place], [place] [address] Social History Tobacco Use Types Packs/Day Years [...] Laury ProviderMD - 01/18/2020 8:28 PM CDT [place] Suicide Severity Rating Scale (C-SSRS) Entered On: 01/18/2020 21:29 EDT Performed On: 01/18/2020 21:29 EDT by JASON FUENTES RN [place] Suicide Severity Rating Scale (C-SSRS) CSSRS Past [...]
--- OUTSIDE RECORDS SUMMARY | 2024-06-04 07:55 | XMS_ITS | Encounter Summary ---
Author Organization [employer] Address [address] [place] [address] Care Team Providers Care Counter Supply Worker Name Role Phone Unavailable Primary Care Provider Unavailabl e Encounter Details Date Type Department Care Team (Late st Contact Info) Description 01/05/2020 Transcribed Document [facility] [place] [address] [place] [address] ProviderLaury MD [address] [place] [address] Social History Tobacco Use Types Packs/Day [...] On: 01/05/2020 8:27 EDT by CRISTOBAL HANSEN, RN-Business Continuity Strategy Director Initial Assessment I Previously Documented Living Environment [...] have PCP Listed? : Yes CRISTOBAL HANSEN RN-Business Continuity Strategy Director - 01/05/2020 8:27 EDT Initial Assessment II [...] : Discharge transportation, Outpatient services CRISTOBAL HANSEN RN-Business Continuity Strategy Director - 01/05/2020 8:27 EDT Narrative Note Narrative Note : Patient underwent laparoscopic gastrectomy sleeve. Lives at home with family, iADLs. Plan is to return home at [place], no services needed..................sds CRISTOBAL HANSEN RN-Business Continuity Strategy Director - 01/05/2020 8:27 EDT documented in this encounter Plan of Treatment Not on file documented as of this encounter Visit Diagnoses Not on filedocumented in this encounter
--- OUTSIDE RECORDS SUMMARY | 2024-06-04 07:55 | XMS_ITS | Encounter Summary ---
Author Organization [employer] Address [address] [place] [address] Care Team Providers Care Manager Intern Name Role Phone Unavailable Primary Care Provider Unavailabl e Encounter Details Date Type Department Care Team (Late st Contact Info) Description 09/28/2019 Transcribed Document [facility] [place] [address] [place] [address] ProviderLaury MD [address] [place] [address] Social History Tobacco Use Types [...] Policy Numbers : Insurance 1 Health Plan: [facility] Policy Number: [id number] Authorization Number: Insurance Primary Name : [facility] Policy Number: [id number] Authorization Status-Primary : Admit approved Reference Number-Primary : [id number] Authorization Number-Primary : [id number] Number of Days Authorized-Primary : 0 Day(s) [...]
--- OUTSIDE RECORDS SUMMARY | 2024-06-04 07:55 | XMS_ITS | Encounter Summary ---
Author Organization [employer] Address [address] [place] [address] Care Team Providers Care Spar Finisher Name Role Phone Unavailable Primary Care Provider Unavailabl e Reason for Visit * Reason Onset Date Comments Follow-up 09/28/2022 Encounter Details Date Type Department Care Team (Late st Contact Info) Description 09/28/2022 Telephone [facility] [address] [place] [address] [id number] Annmarie George CMA Follow-up Social [...] 1:00 p.m. She is to go to [address] [place] [address]. If she has any questions or needs to change her appointment she can contact them at [phone]. She voiced her understanding and thanked me for the information. Electronically signed by Annmarie Nowak CMA - 09/28/2022 - 1:18 PM EDT documented in this encounter Plan of Treatment Not on file documented as of this encounter Visit Diagnoses Not on filedocumented in this encounter
--- OUTSIDE RECORDS SUMMARY | 2024-06-04 07:55 | XMS_ITS | Encounter Summary ---
Author Organization [employer] Address [address] [place] [address] Care Team Providers Care Christmas Tree Farm Manager Name Role Phone Unavailable Primary Care Provider Unavailabl e Reason for Visit * Reason Comments Catheter problem Encounter Details Date Type Department Care Team (Late st Contact Info) Description 05/21/2023 9:49 PM EDT - 05/21/2023 11:44 PM EDT Emergency [facility] Emergency Department [address] [place] [address] [place] [address] Peritoneal dialysis catheter in place (HCC) (Primary [...] follow-up with your primary care provider and hangersmith. Please return to ER for new or [...] follow-up on Tuesday Amilcar Porter MD 05/21/23 5070 * Мария Treadwell PA-C - 05/21/2023 9:50 [...] CATHETER PLACEMENT),; Surgeon: Cb Renee MD; Location: [facility]; Service: General Surgery; Laterality: N/A; [place] 0630 [...] 60 mL (15 g Oral Given 05/21/23 1818) Results for orders placed or performed during [...] UA Colorless Clarity, UA Clear Clear Specific [place], UA 1.008 1.005 - 1.030 pH, UA [...] primary care provider as well as the hangersmith managing her kidney dysfunction. We advised herto return to ER for any new or worsening symptoms. Assessment & Plan Clinical Impression Diagnosis Comment Added By Time Added Peritoneal dialysis catheter in place (HCC) Мария Treadwell PA-C 05/21/2023 11:12 PM Disposition Discharge [1] - 05/21/2023 11:11 PM New Prescriptions No medications on file Electronically Signed By Мария Treadwell PA-C 05/21/23 4437 Cosigned by Amilcar Porter MD at 05/22/2023 7:14 PM EST PING MANAGER * Rae Land RN - 05/21/2023 9:46 [...] None Seen /HPF 05/21/2023 10:50 PM EDT [facility] RBC, UA 0-2(A) None Seen /HPF 05/21/2023 10:50 PM EDT [facility] Bacteria, UA None Seen Trace, None Seen 05/21/2023 10:50 PM EDT [facility] SQUAMOUS EPITHELIAL 3-5(A) None Seen /HPF 05/21/2023 10:50 PM EDT [facility] Urine URINE SPECIMEN COLLECTION, CLEAN CATCH / Unknown 05/21/2023 10:35 PM EDT 05/21/2023 10:35 PM EDT us Мария Treadwell PA-C URINE ORDERABLES Final Result [facility] [address] [place] [address] [phone] * (ABNORMAL) Urinalysis, Reflex Microscopic and Culture If Indicated (05/21/2023 10:35 PM EDT) Color, UA Colorless 05/21/2023 10:50 PM EDT [facility] Clarity, UA Clear Clear 05/21/2023 10:50 PM EDT [facility] Specific [place], UA 1.008 1.005 - 1.030 05/21/2023 10:50 PM EDT [facility] pH, UA 7.0 6.0 - 8.0 05/21/2023 10:50 PM EDT [facility] Leukocytes, UA Negative Negative 05/21/2023 10:50 PM EDT [facility] Nitrite, UA Negative Negative 05/21/2023 10:50 PM EDT [facility] Protein, UA Trace(A) Negative 05/21/2023 10:50 PM EDT [facility] Glucose, UA Trace(A) Normal 05/21/2023 10:50 PM EDT [facility] Ketones, UA Negative Negative 05/21/2023 10:50 PM EDT [facility] Bilirubin, UA Negative Negative 05/21/2023 10:50 PM EDT [facility] Blood, UA Negative Negative 05/21/2023 10:50 PM EDT [facility] Urobilinogen, UA Normal Normal 05/21/2023 10:50 PM EDT [facility] Specimen Source Urine, Clean Catch 05/21/2023 10:50 PM EDT [facility] Urine URINE SPECIMEN COLLECTION, CLEAN CATCH / Unknown 05/21/2023 10:35 PM EDT 05/21/2023 10:35 PM EDT Мария Treadwell PA-C URINE ORDERABLES Final Result [facility] [address] [phone] * Magnesium (05/21/2023 10:14 PM EDT) Magnesium 1.7 1.5 - 2.4 mg/dL 05/21/2023 10:38 PM EDT [facility] Blood Venipuncture / Unknown 05/21/2023 10:14 PM EDT 05/21/2023 10:14 PM EDT us Мария Treadwell PA-C LAB BLOOD ORDERABLES Final Re sult [facility] [address] [place] [address], [facility] [phone] * (ABNORMAL) Basic Metabolic Panel (05/21/2023 10:14 PM EDT) Sodium 141 136 - 146 meq/L 05/21/2023 10:39 PM EDT [facility] Potassium 5.5(H) 3.5 - 5.1 meq/L 05/21/2023 10:39 PM EDT [facility] Chloride 113(H) 102 - 112 meq/L 05/21/2023 10:39 PM EDT [facility] CO2 22 21 - 32 meq/L 05/21/2023 10:39 PM EDT [facility] Anion Gap 12 9 - 20 05/21/2023 10:39 PM EDT [facility] BUN 67(H) 7 - 22 mg/dL 05/21/2023 10:39 PM EDT [facility] Creatinine 8.24(HH) 0.55 - 1.02 mg/dL 05/21/2023 10:39 PM EDT [facility] BUN/Creatinine 8 8 - 20 05/21/2023 10:39 PM EDT [facility] Glucose 205(H) 74 - 106 mg/dL 05/21/2023 10:39 PM EDT [facility] Calcium 9.0 8.5 - 10.1 mg/dL 05/21/2023 10:39 PM EDT [facility] Osmolality Calc 306.6 10:39 PM EDT [facility] eGFR (mL/min/1.73m2) 6(L) >=60 mL/min/1.7 3m2 05/21/2023 10:39 PM EDT [facility] Comment:eGFR of <60 suggests chronic kidney disease if found over a 3 month period of time. eGFR <15 indicates renal failure. Blood Venipuncture / Unknown 05/21/2023 10:14 PM EDT 05/21/2023 10:14 PM EDT us Мария Treadwell PA-C LAB BLOOD ORDERABLES Final Re sult [facility] [address] [place] [place] [address], [facility] [place] [phone] * (ABNORMAL) CBC with Auto Diff (05/21/2023 10:14 PM EDT) WBC 6.3 3.9 - 10.0 K/??L 05/21/2023 10:18 PM EDT [facility] RBC 2.86(L) 3.93 - 6.08 M/??L 05/21/2023 10:18 PM EDT [facility] Hemoglobin 9.1(L) 11.2 - 15.7 GM/DL 05/21/2023 10:18 PM EDT [facility] Hematocrit 27.7(L) 34.1 - 44.9 % 05/21/2023 10:18 PM EDT [facility] MCV 97(H) 79 - 95 fL 05/21/2023 10:18 PM EDT [facility] MCH 31.8 25.6 - 32.2 pg 05/21/2023 10:18 PM EDT [facility] MCHC 32.9 32.2 - 36.5 GM/DL 05/21/2023 10:18 PM EDT [facility] RDW 12.2 11.6 - 14.4 % 05/21/2023 10:18 PM EDT [facility] Platelets 122(L) 163 - 369 K/CU MM 05/21/2023 10:18 PM EDT [facility] MPV 12.2 9.4 - 12.4 fL 05/21/2023 10:18 PM EDT [facility] % Neutros 50 34 - 71 % 05/21/2023 10:18 PM EDT [facility] % Lymphs 39 19 - 53 % 05/21/2023 10:18 PM EDT [facility] % Monos 6 4 - 13 % 05/21/2023 10:18 PM EDT [facility] % Eos 4 1 - 7 % 05/21/2023 10:18 PM EDT [facility] % Baso 1 0 - 1 % 05/21/2023 10:18 PM EDT [facility] # Neutros 3.18 1.56 - 6.13 K/??L 05/21/2023 10:18 PM EDT [facility] # Lymphs 2.46 1.18 - 3.74 K/??L 05/21/2023 10:18 PM EDT [facility] # Monos 0.39 0.24 - 0.82 K/??L 05/21/2023 10:18 PM EDT [facility] # Eos 0.23 0.04 - 0.54 K/??L 05/21/2023 10:18 PM EDT [facility] # Baso 0.03 0.01 - 0.08 K/??L 05/21/2023 10:18 PM EDT [facility] Immature Granulocytes-Re lative 0.20 0.00 - 0.60 % 05/21/2023 10:18 PM EDT [facility] # IG 0.01 0.00 - 0.05 K/uL 05/21/2023 10:18 PM EDT [facility] Blood Venipuncture / Unknown 05/21/2023 10:14 PM EDT 05/21/2023 10:14 PM EDT Narrative [facility] - 05/21/2023 [...] PA-C LAB BLOOD ORDERABLES Final Re sult [facility] [address] [phone] documented in this encounter Visit Diagnoses Diagnosis [...]
--- OUTSIDE RECORDS SUMMARY | 2024-06-04 07:55 | XMS_ITS | Encounter Summary ---
Author Organization [employer] Address [address] [place] [address] Care Team Providers Care Charcoal Burner Beehive Kiln Name Role Phone Unavailable Primary Care Provider Unavailabl e Encounter Details Date Type Department Care Team (Late st Contact Info) Description 01/19/2020 Transcribed Document [facility] Family Medicine [address] [place] [address] ProviderLaury MD [address] [place], [place] [id number] Social History Tobacco Use Types Packs/Day Years [...] On: 01/19/2020 0:14 EDT by JASON FUENTES, DISTANCE LEARNING PROGRAM COORDINATOR Event Note ED Event Date/Time : 01/19/2020 [...]
--- OUTSIDE RECORDS SUMMARY | 2024-06-04 07:55 | XMS_ITS | Encounter Summary ---
Author Organization [employer] Address [address] [place] [address] Care Team Providers Care Global Mobility Specialist Name Role Phone Unavailable Primary Care Provider Unavailabl e Encounter Details Date Type Department Care Team (Late st Contact Info) Description 01/18/2020 Transcribed Document [facility] Family Medicine [address] [place] [address] ProviderLaury MD [address] [place] [address] Social History Tobacco Use Types [...] On: 01/18/2020 20:31 EDT by MARKIE PANG, TIRE CENTER SUPERVISOR Triage Across the Room Chief Complaint : I THINK I AM DEHYDRATED, I HAD BARIATRIC SURGERY 01/04/20, GASTRIC SLEEVE, EVERYTIME I EAT OR DRINK I PUKE FRANCISCO REYES RN - 01/19/2020 1:21 EDT Triage Date/Time : 01/18/2020 20:31 EDT MARKIE PANG RN - 01/18/2020 20:31 EDT DCP GENERIC CODE Tracking Group : [facility] Tracking Acuity : 2 - Emergent [...] Problems(Active) At risk for sleep apnea (IMO :09756015 ) Name of Problem: At risk for sleep apnea ; Recorder: SYSTEM, SYSTEM; Confirmation: Confirmed ; Classification: Medical ; Code: 51215879 ; Last Updated: 08/24/2019 10:25 EST ; Life Cycle Date: 08/24/2019 ; Life Cycle Status: Active ; Vocabulary: IMO DM (diabetes mellitus) (SNOMED CT :279200431 ) Name of Problem: DM (diabetes mellitus) ; Recorder: ANGE Green RN; Confirmation: Confirmed ; Classification: Medical ; Code: 114975886 ; Contributor System: PowerChart ; Last Updated: 08/24/2019 10:17 EST ; Life Cycle Date: 08/24/2019 ; Life Cycle Status: Active ; Vocabulary: SNOMED CT HTN (hypertension) (SNOMED CT :6724518173 ) Name of Problem: HTN (hypertension) ; Recorder: ANGE Green RN; Confirmation: Confirmed ; Classification: Medical ; Code: 7810119278 ; Contributor System: PowerChart ; Last Updated: 08/24/2019 10:16 EST ; Life Cycle Date: 08/24/2019 ; Life Cycle Status: Active ; Vocabulary: SNOMED CT Hyperkalemia (SNOMED CT :53418618 ) Name of Problem: Hyperkalemia ; Recorder: Noelle Umanzor Rn; Confirmation: Confirmed ; Classification: Medical ; Code: 01875567 ; Contributor System: PowerChart ; Last Updated: 10/03/2019 10:52 EDT ; Life Cycle Date: 10/03/2019 ; Life Cycle Status: Active ; Vocabulary: SNOMED CT Hyperlipemia (SNOMED CT :27867504 ) Name of Problem: Hyperlipemia ; Recorder: ANGE Green RN; Confirmation: Confirmed ; Classification: Medical ; Code: 07417570 ; Contributor System: PowerChart ; Last Updated: 08/24/2019 10:17 EST ; Life Cycle Date: 08/24/2019 ; Life Cycle Status: Active ; Vocabulary: SNOMED CT Kidney disease (SNOMED CT :481693781 ) Name of Problem: Kidney disease ; Recorder: ANGE Green RN; Confirmation: Confirmed ; Classification: Medical ; Code: 892054945 ; Contributor System: PowerChart ; Last Updated: 08/24/2019 10:17 EST ; Life Cycle Date: 08/24/2019 ; Life Cycle Status: Active ; Vocabulary: SNOMED CT Neuropathy (SNOMED CT :4789168430 ) Name of Problem: Neuropathy ; Recorder: ANGE Green RN; Confirmation: Confirmed ; Classification: Medical ; Code: 2911725960 ; Contributor System: PowerChart ; Last Updated: 08/24/2019 10:18 EST ; Life Cycle Date: 08/24/2019 ; Life Cycle Status: Active ; Vocabulary: SNOMED CT Retinopathy (SNOMED CT :75103203 ) Name of Problem: Retinopathy ; Recorder: Noelle Umanzor Rn; Confirmation: Confirmed ; Classification: Medical ; Code: 49028445 ; Contributor System: PowerChart ; Last Updated: 10/03/2019 10:52 EDT ; Life Cycle Date: 10/03/2019 ; Life Cycle Status: Active ; Vocabulary: SNOMED CT Diagnoses(Active) Dehydration Date: 01/18/2020 ; Diagnosis Type: Reason For Visit ; Confirmation: Complaint of ; Clinical Dx: Dehydration ; Classification: Medical ; Clinical Service: Emergency medicine ; Code: PNED ; Probability: 0 ; Diagnosis Code: [id number] Vomiting Date: 01/18/2020 ; Diagnosis Type: Reason For Visit ; Confirmation: Complaint of ; Clinical Dx: Vomiting ; Classification: Medical ; Clinical Service: Emergency medicine ; Code: PNED ; Probability: 0 ; Diagnosis Code: [id number] ED Height and Weight Height Source : Stated Height Entry Format : [place] Height, Feet : 5 ft(Converted to: 152 cm, 60 Inch) Height, Inches : 5 Inch(Converted to: 0 ft 5 Inch, 12.70 cm) Clinical Height : 165.1 cm Weight Source, ED : Standing scale Weight Entry Format : [place] Weight, Pounds : 230.8 lb Clinical Dosing Weight : 104.91 kg Body Surface Area (BSA) : 2.1 m2 Body Mass Index : 38.5 kg/m2 (HI) [place] Body Weight (IBW) : 56.59 kg MARKIE PANG RN - 01/18/2020 20:31 EDT documented in this encounter Plan of Treatment Not on file documented as of this encounter Visit Diagnoses Not on filedocumented in this encounter
--- OUTSIDE RECORDS SUMMARY | 2024-06-04 07:55 | XMS_ITS | Encounter Summary ---
Author Organization [employer] Address [address] [place] [address] Care Team Providers Care Engineering Surveyor Name Role Phone Unavailable Primary Care Provider Unavailabl e Encounter Details Date Type Department Care Team (Late st Contact Info) Description 01/19/2020 Transcribed Document [facility] Family Medicine [address] [place] [address] ProviderLaury MD [address] [place] [id number] Social History Tobacco Use Types Packs/Day Years [...] Physician Requested for Consult : LARRY MARTINES MD-[facility] Physician Covering for Consult : LARRY MARTINES MD-[facility] Date and Time Call Returned : 01/19/2020 9:04 EDT ASPEN CROWDER - 01/19/2020 9:04 EDT Electronically signed by Christopher Byrd Conversion Registered Nurse Ambulatory Cerner at 11/02/2022 10:05 AM CDT documented in this encounter Plan of Treatment Not on file documented as of this encounter Visit Diagnoses Not on filedocumented in this encounter
--- OUTSIDE RECORDS SUMMARY | 2024-06-04 07:55 | XMS_ITS | Encounter Summary ---
Author Organization [employer] Address [address] [place] [address] Care Team Providers Care Job Lithographer Name Role Phone Unavailable Primary Care Provider Unavailabl e Encounter Details Date Type Department Care Team (Late st Contact Info) Description 01/19/2020 Transcribed Document [facility] Family Medicine [address] [place] [address] ProviderLaury MD [address] [place] [address] Social History Tobacco Use Types [...] pharmacies and retail stores. ??? Eat bland, pezf-pc-csqhxz foods in small amounts as you are [...] and water are not available, use hand tree sapper. Make sure that everyone in your household washes their hands frequently. ??? Take ctub-vfs-rjificg and prescription medicines only as told by [...] and water are not available, use hand tree sapper. Make sure that everyone in your household [...] 07/30/2016 Document Revised: 12/12/2018 Document Reviewed: 12/12/[address] Interactive Patient Education ? [address] [address] [employer] Endocrinology Hypoglycemia Hypoglycemia occurs when the [...] instructions at home: General instructions ??? Take akyv-ojt-ewbikwf and prescription medicines only as told by [...] 07/04/2006 Document Revised: 12/26/2018 Document Reviewed: 08/06/[address] Interactive Patient Education ? 2020 [employer]. documented in this encounter Plan of Treatment Not on file documented as of this encounter Visit Diagnoses Not on filedocumented in this encounter
--- OUTSIDE RECORDS SUMMARY | 2024-06-04 07:55 | XMS_ITS | Encounter Summary ---
Author Organization [employer] Address [address] [place] [address] Care Team Providers Care Sewer Separation Designer Name Role Phone Unavailable Primary Care Provider Unavailabl e Encounter Details Date Type Department Care Team (Late st Contact Info) Description 01/19/2020 Transcribed Document [facility] [place] [facility] [place] [address] ProviderLaury MD [address] [place] [id number] Social History Tobacco Use Types Packs/Day Years [...] documented in chart. Surgical history: section x2 (79082909). Dilation and curettage (62917212). Tubal ligation (322162428). wisdom teeth. kidney biopsy. EGD. Stomach biopsy. Gastric sleeve (1198049164).. Family history: Not significant, No family history [...] EDT Height Source Stated Height Entry Format [place] Height/Length, LATVIAN (ft) 5 ft Height/Length [place]VI[place] 5 Inch CLINICALHEIGHT 165.1 cm [place] Body Weight 56.59 kg Weight Source, ED Standing scale Weight Entry Format [place] Weight [place] lb 230.8 lb CLINICALWEIGHT 104.91 kg Body [...] 39.0 % Lymph # 3.92 K/uL [place] % 7.3 % [place] # 0.73 K/uL Eos % 2.4 % Eos # 0.24 K/uL Baso % 0.4 % Baso # 0.04 K/uL Slide Review No IG# 0 x10(3)/uL IG% 0 % . Notes: Preliminary ReportNAME:FREDDIE ARCHER / SEX:1990 / FemaleMRN / ACC#:[id number] / [id number] ORDERING PHYSICIAN:Ordering Provider, UpdateEXAM REQUESTED:[id number]--LX ABDOMEN & PELVIS W/O CONTRAST [facility]RADIOLOGIST NAME:MD Ashe[facility]:status post gastric sleeve surgery on [...] No rash, no cyanosis, capillary refill brisk ROVING MARKER: Awake alert oriented ??4, nonfocal exam Psych: [...]
--- OUTSIDE RECORDS SUMMARY | 2024-06-04 07:55 | XMS_ITS | Encounter Summary ---
Author Organization [employer] Address [address] [place] [address] Care Team Providers Care Opto Mechanical Technician Name Role Phone Unavailable Primary Care Provider Unavailabl e Encounter Details Date Type Department Care Team (Late st Contact Info) Description 01/19/2020 Transcribed Document [facility] [place] Family Medicine [address] [place] [address] ProviderLaury MD [address] [place] [address] Social History Tobacco Use Types [...] 01/19/2020 15:30 EDT Electronically signed by Interface, [facility] Conversion Screw Eye Assembler Cerner at 11/02/2022 10:02 AM CDT documented in this encounter Plan of Treatment Not on file documented as of this encounter Visit Diagnoses Not on filedocumented in this encounter
--- OUTSIDE RECORDS SUMMARY | 2024-06-04 07:55 | XMS_ITS | Encounter Summary ---
Author Organization [employer] Address [address] [place] [address] Care Team Providers Care Urgent Care Nurse Practitioner Name Role Phone Unavailable Primary Care Provider Unavailabl e Reason for Visit * Reason Comments Post-Op Follow-up laparoscopic periton eal dialysis catheter placement Encounter Details Date Type Department Care Team (Late st Contact Info) Description 09/27/2022 1:00 PM EDT Office Visit [facility] [address] [facility] [address] [place] [address] Ace Simms PA-C [address] [place] [address] [address] [place] [address] Stage 4 chronic kidney disease (HCC) (Primary [...]
--- OUTSIDE RECORDS SUMMARY | 2024-06-04 07:55 | XMS_ITS | Encounter Summary ---
Author Organization [employer] Address [address] [place] [address] Care Team Providers Care Pie Icer Machine Name Role Phone Unavailable Primary Care Provider Unavailabl e Encounter Details Date Type Department Care Team (Late st Contact Info) Description 01/04/2020 Abstract [facility] Bariatric Services [address] [place] [address] Xavi Mejia MD [address] [facility] [address] [place] [address] Social History Tobacco Use Types Packs/Day Years [...]
--- OUTSIDE RECORDS SUMMARY | 2024-06-04 07:55 | XMS_ITS | Encounter Summary ---
Author Organization [employer] Address [address] [place] [address] Care Team Providers Care Nurse Behavioral Health Care Name Role Phone Unavailable Primary Care Provider Unavailabl e Reason for Visit * Auth/Cert Specialty Diagnoses / Procedures Referred By Xochitl burt Referred To Contact Diagnoses Chronic kidney disease, stage IV (severe) (HCC) Chronic kidney disease, Procedures IN LAP INSERTION TUNNELED INTRAPERITONEAL CATHETER LAPAROSCOPY, WITH PERITONEAL [place] [address] [place] [address] [address] [place] [address] Phone: tel: fax: Referral ID Status Reason Start Date Expiration Date Visits Re quested Visits Authorized [id number] 09/13/2022 1 1 Encounter Details Date Type Department Care Team (Late st Contact Info) Description 09/23/2022 8:00 AM EST Anesthesia Event [facility] Operating Room [address] [place] [id number] Margarito Escobedo MD [address] [place] [address] Anesthesia Record Procedure Summary Procedure Name Responsible [...] Nakul Hull RN 09/23/22 1012 by Yue Jacome RN ETT Placement Date 09/23; Placement Time [...] Notes * Anesthesia Postprocedure Evaluation - Margarito Escobdeo MD - 09/23/2022 8:55 AM EST Patient: Crystal Archer Procedure Summary Date: 09/23/22 Room / Location: [facility] OPERATING ROOM Anesthesia Start: 0800 Anesthesia Stop: [...] acceptable Comments: Phenergan given for nausea Color: [place] Activity: Moves 4 extremities Inotropes/Vasopressors: N/A There were no known complications for this encounter. Margarito Escobedo MD 09/23/2022 8:55 AM EST PMENT MAN * Anesthesia Procedure Notes - Maragrito Escobedo MD - 09/23/2022 8:19 AM EST [...] 1 Number of other approaches attempted: 0 PMENT MAN * Anesthesia Preprocedure Evaluation - Margarito Escobedo MD - 09/23/2022 7:41 AM EST ANESTHESIA PREOPERATIVE EVALUATION Patient: Crystal Archer Date/Time: 09/23/22 0850 Procedure: LAPAROSCOPIC PD CATHETER PLACEMENT), (N/A ) - IN 629 , 1 HR (R) Location: [facility] OR [address] [place] [address] OPERATING ROOM Surgeons: Cb Renee MD Vitals: [...] Anesthetic plan and risks discussed with patient. PMENT MAN PMENT MAN documented in this encounter Plan of Treatment [...]
--- OUTSIDE RECORDS SUMMARY | 2024-06-04 07:55 | XMS_ITS | Encounter Summary ---
Author Organization [employer] Address [address] [place] [address] Care Team Providers Care Safe Deposit Attendant Name Role Phone Unavailable Primary Care Provider Unavailabl e Encounter Details Date Type Department Care Team (Late st Contact Info) Description 01/04/2020 Transcribed Document [facility] [place] [address] [place] [address] ProviderLaury MD [address] [place] [address] Social History Tobacco Use Types [...]
--- OUTSIDE RECORDS SUMMARY | 2024-06-04 07:55 | XMS_ITS | Encounter Summary ---
Author Organization [facility] In [facility] Address [address] [place] [address] Care Team Providers Care Unleavened Dough Mixer Name Role Phone Unavailable Primary Care Provider Unavailabl e Encounter Details Date Type Department Care Team (Late st Contact Info) Description 01/04/2020 Transcribed Document [facility] [place] Family Medicine [address] [place] [address] ProviderLaury MD [address] [place] [address] Social History Tobacco Use Types [...] 01/04/2020 19:04 EDT Electronically signed by [facility] Conversion Scallop Raker Cerner at 11/02/2022 10:03 AM CDT documented in this encounter Plan of Treatment Not on file documented as of this encounter Visit Diagnoses Not on filedocumented in this encounter
--- OUTSIDE RECORDS SUMMARY | 2024-06-04 07:55 | XMS_ITS | Encounter Summary ---
Author Organization [employer] In i[employer] Address [address] [place] [address] Care Team Providers Care Video Network Engineer Name Role Phone Unavailable Primary Care Provider Unavailabl e Encounter Details Date Type Department Care Team (Late st Contact Info) Description 09/06/2022 Orders Only [facility] [address] [facility] [address] [place] [address] [place] [address] [place] [address] [address] [place] [address] Social History Tobacco Use Types [...]
--- OUTSIDE RECORDS SUMMARY | 2024-06-04 07:55 | XMS_ITS | Encounter Summary ---
Author Organization [employer] In iatives Address [address] [place] [address] Care Team Providers Care History Teacher Name Role Phone Unavailable Primary Care Provider Unavailabl e Encounter Details Date Type Department Care Team (Late st Contact Info) Description 01/19/2020 Transcribed Document [facility] [place] [facility] [place] [address] ProviderLaury MD [address] [place] [address] Social History Tobacco Use Types Packs/Day [...] Obtained From : Patient Primary Language : Latvian Preferred Communication Mode : Verbal Communication Barrier : None Rivet Bucker Needed : No OCTAVIO BRAND RN - [...] Scale Risk Level : 0-24 Low Risk [place] Fall Interventions : Adequate lighting, Bed in [...] (Last Updated: 08/24/2019 10:21:13 EST by ANGE Grene RN) Caffeine intake amount: none. (Last Updated: 10/03/2019 10:55:25 EDT by Noelle Umanzor Rn) Height and Weight, Clinical Dosing Height Source : Stated Height Entry Format : [place] Height, Feet : 5 ft(Converted to: 152 cm, 60 Inch) Height, Inches : 5 Inch(Converted to: 0 ft 5 Inch, 12.70 cm) Clinical Height : 165.1 cm Weight Source : Standing scale Weight Entry Format : [place] Clinical Dosing Weight : 104.91 kg Weight, Pounds : 230.8 lb Body Surface Area (BSA) : 2.1 m2 Body Mass Index : 38.5 kg/m2 (HI) [place] Body Weight : 57 kg OCTAVIO BRAND [...] OCTAVIO BRAND RN - 01/19/2020 8:36 EDT [place] Suicide Severity Rating Scale (C-SSRS) CSSRS Past [...]
--- OUTSIDE RECORDS SUMMARY | 2024-06-04 07:55 | XMS_ITS | Encounter Summary ---
Author Organization [employer] In iatives Address [address] [place] [address] Care Team Providers Care Assistant Tennis Coach Name Role Phone Unavailable Primary Care Provider Unavailabl e Encounter Details Date Type Department Care Team (Late st Contact Info) Description 01/19/2020 Transcribed Document [facility] [place] [address] [place] [address] ProviderLaury MD [address] [place], [place] [address] Social History Tobacco Use Types Packs/Day Years [...] - 01/19/2020 16:16 EDT Electronically signed by [facility] Conversion Mailing Specialist Cerner at 11/02/2022 9:56 AM CDT documented in this encounter Plan of Treatment Not on file documented as of this encounter Visit Diagnoses Not on filedocumented in this encounter
--- OUTSIDE RECORDS SUMMARY | 2024-06-04 07:55 | XMS_ITS | Encounter Summary ---
Author Organization [employer] In iatives Address [address] [place] [address] Care Team Providers Care Congressional District Aide Name Role Phone Unavailable Primary Care Provider Unavailabl e Encounter Details Date Type Department Care Team (Late st Contact Info) Description 05/30/2020 Historic Encounter [address] [address] ProviderJen Historical Social History Tobacco [...] Associated Diagnosis Comments NOVEL CORONAVIRUS 2019 PCR ([facility]KR DATA CONV) Routine 05/30/2020 8:28 AM EST documented in this encounter Results * NOVEL CORONAVIRUS 2019 PCR ([facility] BKR DATA CONV) (05/30/2020 8:28 AM EST) Novel COVID 2019 PCR NOT DETECTED NEGATIVE- NEGATIVE [facility] Comment: Testing performed at: [facility] [address] [place] [address], [facility] [address] [place] [address] Director: SHABNAM PRESSLEY, PHD ?? CLIA#:[id number] 05/30/2020 8:28 AM EST [facility] Historical Provider BODY FLUIDS AND STOOLS ORDERABLES Final Result [facility] [address] [place], [place] [id number], [facility] [phone] documented in this encounter Visit Diagnoses Not on filedocumented in this encounter
--- OUTSIDE RECORDS SUMMARY | 2024-06-04 07:55 | XMS_ITS | Encounter Summary ---
Author Organization [email or web address] In iatives Address [address] [place] [address] Care Team Providers Care Talent Acquisition Project Manager Name Role Phone Unavailable Primary Care Provider Unavailabl e Reason for Visit * Reason Comments New Patient peritoneal dialysis catheter evaluation * Surgical (Routine) - Closed Specialty Diagnoses / Procedures Referred By Contac t Referred To Contact General Surgery Diagnoses CKD (chronic kidney disease) Ibrahima Talamantes MD [address] [place] [address] [address] [place] [address] Phone: tel: [place]: [place] [address] [place] [address] [address] Phone: tel: fax: Referral ID Status Reason Start Date Expiration Date Visits Re quested Visits Authorized [id number] Closed 09/07/2022 03/06/2023 1 1 Encounter Details Date Type Department Care Team (Late st Contact Info) Description 09/13/2022 10:00 AM EST Office Visit [facility] [address] [place] [address] [address] [place] [address] Cb Renee MD [address] [place] [address] [address] Stage 4 chronic kidney disease [...] dialysis catheter on September 23, 2022 at [facility]. Electronically signed by Annmarie Nowak CMA - 09/13/2022 - 10:14 AM EST OGRAPHIC PLATE MAKER documented in this encounter Plan of Treatment Not on file documented as of this encounter Visit Diagnoses Diagnosis Stage 4 chronic kidney disease (HCC)- Primary documented in this encounter
--- OUTSIDE RECORDS SUMMARY | 2024-06-04 07:55 | XMS_ITS | Encounter Summary ---
Author Organization [email or web address] In [facility]atives Address [address] [place] [address] Care Team Providers Care Station Cashier Name Role Phone Unavailable Primary Care Provider Unavailabl e Encounter Details Date Type Department Care Team (Late st Contact Info) Description 01/04/2020 Transcribed Document [facility] [place] [facility] [place] [address] ProviderLaury MD [address] [place] [id number] Social History Tobacco Use Types Packs/Day Years [...] Laparoscopic sleeve gastrectomy SURGEON: Xavi Mejia M.D. GERONTOLOGICAL NURSE PRACTITIONER: Daniel steinberg MD ANESTHESIA: General. SPECIMEN: Stomach. INDICATION FOR PROCEDURE: is a 29-year-old patient with supervisor long goods history of morbid obesity and CKD, has [...] was done, we proceeded to place the 54-[place] bougie down the esophagus into the stomach under direct visualization. When it was in the antrum, we proceeded to staple the stomach in a parallel manner to the greater curvature, creating a sleeve gastrectomy using the [place] stapler. We used green loads, all reinforced [...] Instrument and lap count was correct x2. Electronically signed by Zuleyka Byrd Conversion Concrete Mixer Loader Truck Mounted Cerner at 11/02/2022 10:04 AM CDT documented in this encounter Plan of Treatment Not on file documented as of this encounter Visit Diagnoses Not on filedocumented in this encounter
--- OUTSIDE RECORDS SUMMARY | 2024-06-04 07:55 | XMS_ITS | Encounter Summary ---
Author Organization [employer] In [facility] Address [address] [place] [address] Care Team Providers Care Hand Former Helper Name Role Phone Unavailable Primary Care Provider Unavailabl e Encounter Details Date Type Department Care Team (Late st Contact Info) Description 01/19/2020 Historic Encounter [facility] Radiology [address] [place] [address] Maikol Leslie MD [facility] [place] [address] Social History Tobacco Use Types Packs/Day Years [...]
--- OUTSIDE RECORDS SUMMARY | 2024-06-04 07:55 | XMS_ITS | Encounter Summary ---
Author Organization [employer] In [facility] Address [address] [place] [address] Care Team Providers Care Professor Of Oceanography Name Role Phone Unavailable Primary Care Provider Unavailabl e Encounter Details Date Type Department Care Team (Late st Contact Info) Description 01/18/2020 Transcribed Document [facility] [place] [address] [place] [address] ProviderLaury MD [address] [place] [address] Social History Tobacco Use Types [...] x 4 Skin Temperature : Warm JASON FUENETS RN - 01/18/2020 21:30 EDT ED General-Functional Assess Information Obtained From : Patient Preferred Communication Mode : Verbal Communication Barrier : None Primary Language : Citizen Of [place] Any Spiritual/Cultural Needs or Requests : No [...]
--- OUTSIDE RECORDS SUMMARY | 2024-06-04 07:55 | XMS_ITS | Encounter Summary ---
Author Organization [employer] In [facility] Address [address] [place] [address] Care Team Providers Care Franchise Development Manager Name Role Phone Unavailable Primary Care [...]
--- OUTSIDE RECORDS SUMMARY | 2024-06-04 07:55 | XMS_ITS | Encounter Summary ---
Author Organization [employer] In [facility] Address [address] [place] [address] Care Team Providers Care Coloring Machine Operator Name Role Phone Unavailable Primary Care Provider Unavailabl e Encounter Details Date Type Department Care Team (Late st Contact Info) Description 01/04/2020 Transcribed Document [facility] [place] [address] [place] [address] ProviderLaury MD [address] [place] [address] Social History Tobacco Use Types [...]
--- OUTSIDE RECORDS SUMMARY | 2024-06-04 07:55 | XMS_ITS | Encounter Summary ---
Author Organization [employer] iatives Address [address] [place] [address] Care Team Providers Care Safety Deposit Supervisor Name Role Phone Unavailable Primary Care Provider Unavailabl e Reason for Visit * Auth/Cert Specialty Diagnoses / Procedures Referred By Xochitl burt Referred To Contact Diagnoses Chronic kidney disease, stage IV (severe) (HCC) Chronic kidney disease, Procedures NC LAP INSERTION TUNNELED INTRAPERITONEAL CATHETER LAPAROSCOPY, WITH PERITONEAL DIALYSIS CATHETER INSERTION Cb Renee MD [address] [place] [address] [place] [address] Phone: tel: fax: Referral ID Status Reason Start Date Expiration Date Visits Re quested Visits Authorized [id number] 09/13/2022 1 1 Encounter Details Date Type Department Care Team (Late st Contact Info) Description 09/23/2022 8:00 AM EST - 09/23/2022 9:20 AM EST Surgery [facility] Operating Room [address] [place] [address] Cb Renee MD [address] [place] [address] LAPAROSCOPIC PD CATHETER PLACEMENT), Social History Tobacco [...] for 24 hours or while taking narcotics ER APPRENTICE HAND * Attachments The following attachments cannot be sent through Care Everywhere. * General Anesthesia Adult Care After (Lithuanian) * Peritoneal Dialysis Catheter Placement Care After (Lithuanian) * Acetaminophen; Hydrocodone Capsules or Tablets (Lithuanian) documented in this encounter Medications at Time [...] this encounter H&P Notes * Mare Rodgers, ELEPHANT TAMER - 09/23/2022 8:00 AM EST HPI History [...] ??? POC-EGFR 09/23/2022 8 mL/min/1.73M2 Final ??? Kiln Maintenance 09/23/2022 [id number] Final ??? POC-Creatinine 09/23/2022 6.3 (A) 0.6 - 1.3 mg/dL Final No image results found. Assessment & Plan Renal failure DM Hyperparathyroidism Anemia HTN HLD Hyperkalemia Pt to proceed with surgery, DC home today. Electronically signed by: Mare Rodgers APRN, 09/23/2022 at 8:32 AM Cosigned by Cb Rneee MD at 09/23/2022 2:25 PM EST ER APPRENTICE HAND ER APPRENTICE HAND Associated attestation - Cb Renee MD - 09/23/2022 1:25 PM CUTTER APPRENTICE HAND Patient seen and examined by myself. Agree [...] dialysis catheter on September 23, 2022 at [facility]. ?? Electronically signed by Annmarie Nowak CMA - 09/13/2022 - 10:14 AM EST ?? Patient?? Crystal Archer 32 year old female 1990 ?? [address] [facility] [address] ?? [phone] (M) [phone] (H) Comm Pref: Recent Visits with You 09/13/2022 Office Visit More...?? Significant History/Details?? Smoking Former Smoker (Quit Date: ) Smokeless Tobacco Never Used Alcohol Not Currently Preferred Language Lithuanian Specialty Comments Edit Show all No comments regarding your specialty Family Comments Edit None Care Team and Communications?? No referring provider ?? No PCP set ?? No other patient care team members ?? Visit Treatment Team Relationship Cb Renee MD Surgeon ? Recipients of Automatic ADT Notifications for This Admission Show All Admissions No notifications found. Social Determinants of Health?? Find [employer] Documents Created Type Source 04/11/2022 Continuity of Care Document?? [facility] ALLSCRIPTS 03/18/2022 Continuity of Care Document?? [facility] CERNER 03/17/2022 Continuity of Care Document?? [facility] CERNER Since Your Last Visit (Today)?? Sep [...] Labs and Imaging No resulted procedures found. ER APPRENTICE HAND documented in this encounter Miscellaneous Notes * Nursing Progress Notes - Yue Jacome RN - 09/23/2022 9:52 AM EST Pt has abd pad with binder ER APPRENTICE HAND * Op Note - Cb Renee MD - 09/23/2022 9:18 AM EST DATE OF PROCEDURE: 09/23/2022 PREOPERATIVE DIAGNOSIS: Chronic kidney disease. POSTOPERATIVE DIAGNOSIS: Chronic kidney disease. PROCEDURE PERFORMED: Laparoscopic placement of peritoneal dialysis catheter. MDS MANAGER: Wil Chawla. ANESTHESIA: General endotracheal. FINDINGS: The [...] was taken to Recovery in stable condition. /[id number] Cb Renee MD [facility]/ / [facility] / [place] /[id number] ER APPRENTICE HAND documented in this encounter Plan of Treatment Not on file documented as of this encounter Procedures Procedure Name Priority Date/Time Associated Diagnosis Comments NOVA GLUCOSE POC Routine 09/23/2022 8:51 AM EST NC LAP INSERTION TUNNELED INTRAPERITONEAL CATHETER 09/23/2022 7:50 AM EST Chronic kidney disease, stage IV (severe) ([facility]) FS_MODEL_IP POCT , URINE Routine 09/23/2022 7:42 AM EST ISTAT GLUCOSE POC Routine 09/23/2022 7:3 9 AM EST POCT-CREATININE Routine 09/23/2022 7:39 AM EST POCT-POTASSIUM STAT 09/23/2022 7:39 AM EST FS_MODEL_IP_ECG 12-LEAD Routine 09/24/19 7:13 AM EST EKG-SCANNED 09/23/2022 documented in this encounter Results * (ABNORMAL) Glucose, Nova Meter (09/23/2022 8:51 AM EST) [facility] POC-GLUCOSE 177(H) 70 - 110 mg/dL 09/23/2022 8:52 AM EST [facility] Comment:Notified Nurse RBV Kiln Maintenance [id number] 09/23/2022 8:52 AM EST [facility] Blood WHOLE BLOOD / Unknown 09/23/2022 8:51 AM EST 09/23/2022 8:52 AM EST Narrative [facility] - 09/23/2022 8:52 AM EST Kiln Maintenance ID is - [id number] us Cb Renee MD POINT OF CARE TEST ORDERABLES Fi nal Result [facility] [address] [phone] * POCT , urine (09/23/2022 7:42 AM EST) [facility] POC, URINE HCG Negative Negative INTERNAL QC (VALID/INVALID ) Valid Kit Lot Number [id number] Expiration Date 09/15/2023 09/23/2022 7:42 AM EST us Pelon Mendoza MD FS_MODEL_IP_POINT OF CARE TEST ENTER/EDIT ORDERABLES Final Result * (ABNORMAL) POC-Creatinine (09/23/2022 7:39 AM EST) [facility] POC-EGFR 8 mL/min/1. 73M2 09/23/2022 7:47 AM EST [facility] Comment:Proceed with contras t if eGFR > 45 ml/min/1.73 when performed on the NovaSTAT strip Creatinine meter. Kiln Maintenance [id number] 09/23/2022 7:47 AM EST [facility] POC-Creatinine 6.3(H) 0.6 - 1.3 mg/dL 09/23/2022 7:47 AM EST [facility] Blood 09/23/2022 7:39 AM EST 09/23/2022 7:47 AM EST Narrative [facility] - 09/23/2022 7:47 AM EST Kiln Maintenance ID is - [id number] Cb Renee MD POINT OF CARE TEST ORDERABLES Fi nal Result Performing Organization Address [facility]/ZIP Co de Phone Number [facility] [address] [place] [address] * Glucose, iSTAT Meter (09/23/2022 7:39 AM EST) [facility] POC-GLUCOSE 87 70 - 105 mg/dL 09/23/2022 7:47 AM EST [facility] Blood 09/23/2022 7:39 AM EST 09/23/2022 7:47 AM EST Narrative [facility] - 09/23/2022 7:47 AM EST Kiln Maintenance ID is - [id number] us Cb Renee MD POINT OF CARE TEST ORDERABLES Fi nal Result [facility] [address] [phone] * POC-Potassium (09/23/2022 7:39 AM EST) [facility] POC Potassium 4.5 3.5 - 4.9 mmol/L 09/23/2022 7:47 AM EST [facility] Blood 09/23/2022 7:39 AM EST 09/23/2022 7:47 AM EST Narrative [facility] - 09/23/2022 7:47 AM EST Kiln Maintenance ID is - [id number] us Pelon Mendoza MD POINT OF CARE TEST ORDERAB LES Final Result Performing Organization Address [facility]/ZIP Co de Phone Number [facility] [address] [phone] * ECG 12 lead (09/23/2022 7:13 AM EST) VENTRICULAR RATE EKG/MIN 72 BPM GE MUSE ATRIAL RATE (MCT) 72 BPM GE MUSE NC Interval 144 ms GE MUSE QRS-INTERVAL (MSEC) 76 ms GE MUSE QT Interval 410 ms GE MUSE QTC Interval 448 ms GE MUSE P [place] 79 degrees GE MUSE R AXIS (MCT) 71 degrees GE MUSE T Wave [place] 68 degrees GE MUSE [place] Diagnosis Normal sinus rhythm Normal ECG No previous ECGs available Confirmed by Lottie VU, GARFIELD ([id number]), video tape editor LEO VALDIVIA ([id number]) on 09/23/2022 3:18:05 PM GE MUSE 09/23/2022 7:13 AM EST 09/23/2022 3:18 PM EST us Cb Renee MD ECG ORDERABLES Final Result Performing Organization Address [facility]/ZIP Co de Phone Number GE MUSE [...]
--- OUTSIDE RECORDS SUMMARY | 2024-06-04 07:55 | XMS_ITS | Referral Summary ---
Author Organization [employer] In [employer] Address [address] [place] [address] Care Team Providers Care Operations And Maintenance Technican Name Role Phone Unavailable Primary Care Provider [...] Date Blaine rded Speak language other than Palauan at home Not on file 07/30/2023 Want [...] Plan of Treatment Not on file Insurance [facility] Advance Directives For more information, please contact: [phone] * Full Code (Latest Code Status on File) Date Activated Date Inactivated Comments 09/23/2022 6:27 AM 09/23/2022 11:31 AM
--- OUTSIDE RECORDS SUMMARY | 2024-06-04 07:56 | XMS_ITS | Encounter Summary ---
Author Organization [employer] Address [address] [place] [address] Care Team Providers Care Nightclub Manager Name Role Phone Unavailable Primary Care Provider Unavailabl e Encounter Details Date Type Department Care Team (Late st Contact Info) Description 01/08/2019 Transcribed Document [facility] [place] [facility] [place] [address] ProviderLaury MD [address] [place] [address] Social History Tobacco Use Types Packs/Day [...] Laury ProviderMD - 01/08/2019 12:31 AM CDT [facility] Depart Summary PERSON INFORMATION Name Crystal Archer Age 28 Years 1990 Sex Female Language PCP Marital Status Phone [phone] Visit Id Visit Reason Specialty Enc Type Emergency Med Service [facility] [id number] Checkout 01/07/2019 20:31:56 Checkin 01/07/2019 18:52:00 Acuity 3 - Urgent K Dispo Type Arrival 01/07/2019 18:52:00 Reg Status LOS 000 01:39 Address: [address] [place] [address] [place] [address] POWERFORMS PHYSICIAN NOTES VITALS INFORMATION Vital Sign Triage Temp 99.4 Temp Route Pulse Rate 96 Respiratory Rate 16 Blood Pressure 137/ 85 LOCATION INFORMATION Arrival Nurse Unit Room Bed 01/07/2019 18:52:00 [facility] ED Waitroom ([facility]) 01/07/2019 20:31:56 [facility] ED Checkout ([facility]) MEDICAL INFORMATION Allergy Info: NSAIDs PATIENT EDUCATION INFORMATION Instructions: Follow up: DIAGNOSIS documented in this encounter Plan of Treatment Not on file documented as of this encounter Visit Diagnoses Not on filedocumented in this encounter
--- OUTSIDE RECORDS SUMMARY | 2024-06-04 07:56 | XMS_ITS | Encounter Summary ---
Author Organization [employer] Address [address] [place] [address] Care Team Providers Care Wild Oyster Harvester Name Role Phone Unavailable Primary Care Provider Unavailabl e Encounter Details Date Type Department Care Team (Late st Contact Info) Description 09/07/2018 Transcribed Document [facility] [place] [address] [place] [address] ProviderLaury MD [address] [place] [address] Social History Tobacco Use Types Packs/Day [...] - Laury ProviderMD - 09/07/2018 9:31 PM INTERNAL CONTROL CONSULTANT [facility] Emergency Department Depart Summary PERSON INFORMATION Name Crystal Archer Age 28 Years 1990 Sex Female Language PCP Marital Status Phone [phone] Visit Id Visit Reason Specialty Enc Type Emergency Med Service Referred by Track Group [facility] Discharge Tracking Id [id number] Checkout 09/07/2018 16:31:16 Checkin 09/07/2018 15:20:00 Acuity 4 - Non-urgent [facility] Dispo Type Arrival 09/07/2018 15:20:00 Reg Status LOS 000 01:11 Address: [address] [place], [place] [address] [place] [address] POWERFORMS PHYSICIAN NOTES VITALS INFORMATION Vital Sign Triage Temp 99.1 Temp Route Oral/Mouth Pulse Rate 61 Respiratory Rate 20 Blood Pressure 145/ 91 LOCATION INFORMATION Arrival Nurse Unit Room Bed 09/07/2018 15:20:00 [facility] ED Waitroom ([facility]) 09/07/2018 15:34:51 [facility] ED 9 09/07/2018 16:31:16 [facility] ED Checkout ([facility]) MEDICAL INFORMATION Allergy Info: No Known [...]
--- OUTSIDE RECORDS SUMMARY | 2024-06-04 07:56 | XMS_ITS | Encounter Summary ---
Author Organization [employer] Address [address] [place] [address] Care Team Providers Care Bicycle Inspector Name Role Phone Unavailable Primary Care Provider Unavailabl e Encounter Details Date Type Department Care Team (Late st Contact Info) Description 09/26/2018 Transcribed Document [facility] [place] Family Medicine [address] [place] [address] ProviderLaury MD [address] [place] [address] Social History Tobacco Use Types Packs/Day [...] Laury ProviderMD - 09/26/2018 10:56 PM CDT [facility] Depart Summary PERSON INFORMATION Name Crystal Archer Age 28 Years 1990 Sex Female Language PCP Marital Status Phone [phone] Visit Id Visit Reason Specialty Enc Type Emergency Med Service Referred by [facility] Discharge Tracking Id [id number] Checkout 09/26/2018 18:56:15 Checkin 09/26/2018 16:44:00 Acuity 3 - Urgent [facility] Dispo Type Arrival 09/26/2018 16:44:00 Reg Status LOS 000 02:12 Address: [address] [place] [address] [place] [address] POWERFORMS PHYSICIAN NOTES VITALS INFORMATION Vital Sign Triage Temp 98.7 Temp Route Oral/Mouth Pulse Rate 102 Respiratory Rate 20 Blood Pressure 140/ 72 LOCATION INFORMATION Arrival Nurse Unit Room Bed 09/26/2018 16:44:00 [facility] ED Waitroom ([facility]) 09/26/2018 16:50:17 [facility] ED 3 09/26/2018 18:56:15 [facility] ED Checkout ([facility]) MEDICAL INFORMATION Allergy Info: No Known Allergies PATIENT EDUCATION INFORMATION Instructions: Hematuria, Adult Follow up: With: Address: When: Follow up with primary care provider Within 5 to 7 days DIAGNOSIS documented in this encounter Plan of Treatment Not on file documented as of this encounter Visit Diagnoses Not on filedocumented in this encounter
--- OUTSIDE RECORDS SUMMARY | 2024-06-04 07:56 | XMS_ITS | Encounter Summary ---
Author Organization [employer] Address [address] [place] [address] Care Team Providers Care Physical Anthropologist Name Role Phone Unavailable Primary Care Provider Unavailabl e Encounter Details Date Type Department Care Team (Late st Contact Info) Description 09/07/2018 Transcribed Document [facility] [place] [address] [place] [address] ProviderLaury MD [address] [place] [address] Social History Tobacco Use Types Packs/Day [...] - Laury ProviderMD - 09/07/2018 8:23 PM [facility] Triage ED Entered On: 09/07/2018 15:30 [...] her self. Health History Reviewed : Yes DuoglasSilvia Toyin, - 09/07/2018 15:23 EST Health History ED Grid Alcohol Use : No Caffeine Use : Yes Substance Abuse : No Tobacco Use : Yes, 1ppd Asthma/COPD : No Cancer : No CVA/TIA : No Mental Illness : No Dementia : No Diabetes : Yes, insulin pump 2014 General Cardiac : No GI 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 : No Psychiatric Nursing Aide Hx : No Heart Attack : No [...] Source : Stated Height Entry Format : [place] Height, Inches : 65 Inch(Converted to: 5 ft 5 Inch, 165.10 cm) Clinical Height : 165.1 cm Weight Source : Stated Type of Weight Measurement Est : [place] Weight, est lb : 215 lb Estimated Clinical Dosing Weight : 97.73 kg [place] Body Weight : 57 kg Body Surface Area Estimated : 2.12 m2 Body Mass Index Estimated : 35.85 kg/m2 Silvia Cole, - 09/07/2018 15:23 EST Medication List ED Medications Reviewed : Yes Source of Information : Patient Silvia Cole, - 09/07/2018 15:23 EST Medication List (As Of: 09/07/2018 15:30:02 EST) Home Meds Status: Processing ; Ordered As Mnemonic: [place] 5 mg-325 mg oral tablet ; Simple [...]
--- OUTSIDE RECORDS SUMMARY | 2024-06-04 07:56 | XMS_ITS | Encounter Summary ---
Author Organization [employer] Address [address] [place] [address] Care Team Providers Care Emulsion Operator Name Role Phone Unavailable Primary Care Provider Unavailabl e Encounter Details Date Type Department Care Team (Late st Contact Info) Description 10/31/2018 Transcribed Document [facility] [place] [address] ProviderLaury MD [address] [place] [id number] Social History Tobacco Use Types Packs/Day Years [...] Laury ProviderMD - 10/31/2018 1:17 AM CDT [facility] ADDRESS [place], [place] [phone] Name:Crystal Archer Visit Date:10/30/2018 20:23:00 Emergency Department Care Providers: Physician: MEGHA MAN Physician: Our doctors and staff appreciate your choice of [facility] for your emergency medical care. Read these instructions carefully. Please call us if you have any questions about your medical problem. [facility] Emergency Department [phone] [facility] Emergency Department [phone] [facility] Emergency Department [phone] Patient Education Materials Gianni Crystal Jones has [...] 10/19/2011 Document Revised: 11/11/2016 Document Reviewed: 06/30/2015 ElseBiletu Interactive Patient Education ? 2017 [employer] FOLLOW UP CARE Most conditions that [...] x-ray department to pick them up o [facility] # [phone] o [facility] # [phone] o [facility] # [phone] ?? If you had cultures done and [...] quit. o National Network of Tobacco Cessation [id number]-UBCJ-NOW o [place] Lung Association o [employer]ese Heart Association [phone] o Sai/Manuel Mccray [phone] FINANCIAL INFORMATION ?? [facility] provides financial counseling to anyone who requests our services. ?? Emergency Physicians are independently contracted to provide your care. You will receive a bill for the care provided to you by the Physician and/or the Physician Retail Key Holder. This will be a separate bill from [...] as recommended Patient Signature / or Patient Order Checker Packer Processer Provider Signature Date Date/Time 10/30/2018 21:17 [facility] [...] Dose Frequency amLODIPine 2.5 mg oral tablet [place] 5 mg-325 mg oral tablet Comment: This [...]
--- OUTSIDE RECORDS SUMMARY | 2024-06-04 07:56 | XMS_ITS | Encounter Summary ---
Author Organization [employer] Address [address] [place] [address] Care Team Providers Care Fence Machine Operator Name Role Phone Unavailable Primary Care Provider Unavailabl e Encounter Details Date Type Department Care Team (Late st Contact Info) Description 08/03/2018 Transcribed Document [facility] [place] Family Medicine [address] [place] [address] ProviderLaury MD [address] [place] [address] Social History Tobacco Use Types Packs/Day [...] - Laury ProviderMD - 08/03/2018 7:32 PM [facility] ADDRESS [place], [place] [phone] Name:Crystal Archer Visit Date:08/03/2018 13:52:00 Emergency Department Care Providers: Physician: MEGHA MAN Physician: Our doctors and staff appreciate your choice of [facility] for your emergency medical care. Read these instructions carefully. Please call us if you have any questions about your medical problem. [facility] Emergency Department [phone] [facility] Emergency Department [phone] [facility] Emergency Department [phone] Patient Education Materials Gianni Crystal Jones has [...] x-ray department to pick them up o [facility] # [phone] o [facility] # [phone] o [facility] # [phone] ?? If you had cultures done and [...] quit. o National Network of Tobacco Cessation [id number]-JOMW-NOW o [place] Lung Association o [place]ian Heart Association [phone] o Sai/Manuel Mahendra [phone] FINANCIAL INFORMATION ?? [facility] provides financial counseling to anyone who requests our services. ?? Emergency Physicians are independently contracted to provide your care. You will receive a bill for the care provided to you by the Physician and/or the Physician Munitions Handler Supervisor. This will be a separate bill [...] as recommended Patient Signature / or Patient Mold Carpenter Provider Signature Date Electronically signed by Zuleyka Byrd Conversion Commissioner Of Conciliation Sandraner at 10/19/2022 11:22 AM CDT documented in this encounter Plan of Treatment Not on file documented as of this encounter Visit Diagnoses Not on filedocumented in this encounter
--- OUTSIDE RECORDS SUMMARY | 2024-06-04 07:56 | XMS_ITS | Encounter Summary ---
Author Organization [employer] Address [address] [place] [address] Care Team Providers Care Advanced Practice Registered Nurse Name Role Phone Unavailable Primary Care Provider Unavailabl e Encounter Details Date Type Department Care Team (Late st Contact Info) Description 07/09/2019 Abstract [facility] [address] [place] [address] Cb Renee MD [address] [place] [address] Social History Tobacco Use Types Packs/Day Years [...]
--- OUTSIDE RECORDS SUMMARY | 2024-06-04 07:56 | XMS_ITS | Encounter Summary ---
Author Organization [employer] Address [address] [place] [address] Care Team Providers Care Dry Pan Operator Name Role Phone Unavailable Primary Care Provider Unavailabl e Encounter Details Date Type Department Care Team (Late st Contact Info) Description 12/24/2018 Transcribed Document [facility] [place] [address] [place] [address] ProviderLaury MD [address] [place] [address] Social History Tobacco Use Types Packs/Day [...] Laury ProviderMD - 12/24/2018 7:19 PM CDT [facility] Emergency Department Depart Summary PERSON INFORMATION Name Crystal Archer Age 28 Years 1990 Sex Female Language PCP Marital Status Phone [phone] Visit Id Visit Reason Specialty Enc Type Emergency Med Service Referred by Track Group [facility] Discharge Tracking Id [id number] Checkout 12/24/2018 15:19:27 Checkin 12/24/2018 15:01:00 Acuity 4 - Non-urgent [facility] Dispo Type Arrival 12/24/2018 15:01:00 Reg Status LOS 000 00:18 Address: [address] [place], [place] [address]T [place] [address] POWERFORMS PHYSICIAN NOTES VITALS INFORMATION Vital Sign Triage Temp 98.6 Temp Route Oral/Mouth Pulse Rate 101 Respiratory Rate 20 Blood Pressure 179/ 89 LOCATION INFORMATION Arrival Nurse Unit Room Bed 12/24/2018 15:01:00 [facility] ED Waitroom ([facility]) 12/24/2018 15:04:15 [facility] ED 1 12/24/2018 15:19:27 [facility] ED Checkout ([facility]) MEDICAL INFORMATION Allergy Info: No Known [...]
--- OUTSIDE RECORDS SUMMARY | 2024-06-04 07:56 | XMS_ITS | Encounter Summary ---
Author Organization [employer] Address [address] [place] [address] Care Team Providers Care Manager Purchasing Name Role Phone Unavailable Primary Care Provider Unavailabl e Encounter Details Date Type Department Care Team (Late st Contact Info) Description 11/19/2018 Transcribed Document [facility] [place] Family Medicine [address] [place] [address] ProviderLaury MD [address] [place] [address] Social History Tobacco Use Types Packs/Day [...] Laury ProviderMD - 11/19/2018 1:52 AM CDT [facility] ADDRESS [place], [place] [phone] Name:Crystal Archer Visit Date:11/18/2018 20:06:00 Emergency Department Care Providers: Physician: Clara Elias Phys Asst Physician: Our doctors and staff appreciate your choice of [facility] for your emergency medical care. Read these instructions carefully. Please call us if you have any questions about your medical problem. [facility] Emergency Department [phone] [facility] Emergency Department [phone] [facility] Emergency Department [phone] Patient Education Materials Gianni Crystal Jones has [...] start to feel better. ??? Only take ovvz-mpf-ljydmhd or prescription medicines for pain, discomfort, or [...] 01/29/2014 Elsevier Interactive Patient Education ? 2017 [employer] Obstetrics and Gynecology Urinary Tract Infection, Adult Introduction A urinary tract infection (UTI) is an infection of any part of the urinary tract. The urinary tract includes the: ??? Kidneys. ??? Ureters. ??? Bladder. ??? Urethra. These organs make, store, and get rid of pee (urine) in the body. Follow these instructions at home: ??? Take iqtu-rnz-jnjeeez and prescription medicines only as told by [...] x-ray department to pick them up o [facility] # [phone] [facility] # [phone] o [facility] # [phone] ?? If you had cultures done and [...] quit. o National Network of Tobacco Cessation [id number]-WMHT-NOW o [place] Lung Association o [employer] Heart Association [phone] o Sai/Manuel Mccray [phone] FINANCIAL INFORMATION ?? [facility] provides financial counseling to anyone who requests our services. ?? Emergency Physicians are independently contracted to provide your care. You will receive a bill for the care provided to you by the Physician and/or the Physician Clinical Pharmacy Coordinator. This will be a separate bill from [...] Patient Education Materials: ENT Otitis Media, Adult, Rutd-ln-Nejf Obstetrics and Gynecology Urinary Tract Infection, Adult, Saqg-px-Aeqm Follow-Up Instructions: Follow Up With: Where: When: [...] as recommended Patient Signature / or Patient Production Specialist Provider Signature Date documented in this encounter Plan of Treatment Not on file documented as of this encounter Visit Diagnoses Not on filedocumented in this encounter
--- OUTSIDE RECORDS SUMMARY | 2024-06-04 07:56 | XMS_ITS | Clinical Summary ---
Author Organization [facility] Address [address] [place] [address] Care Team Providers Care Engine Manager Name Role Phone Yang Maria A Doyle [...] SNACK 11/11/19 23 Active Vitamin D, Ergocalciferol, 53003 units capsule 50,000 Int'l Units. 06/03/20 20 [...] followed by Dr. Stevens at [facility]. Working towards renal transplant with [facility].. Assessment & Plan (03/15/2023 5:10 PM EDT): Etiology of end-stage renal disease appears to be hypertensive nephrosclerosis as well as diabetic nephropathy. She was a noncompliant type I diabetic for many years, diagnosed at the age of 12. She is currently performing home peritoneal dialysis nocturnally 6 days/week. Working towards renal transplant with [facility]. Followed by [facility], Dr. Steevns. Assessment & Plan (02/15/2023 3:01 PM EDT): Etiology of end-stage renal disease appears to be hypertensive nephrosclerosis as well as diabetic Nephropathy. She was a noncompliant type I diabetic for many years, diagnosed at the age of 12. She is currently performing home peritoneal dialysis nocturnally 6 days/week. Working towards renal transplant with [facility]. To pursue transplant services at [facility] as well but finances are making [...] of 107. She reports she saw her turf farmer who wanted to increase her blood pressure medications but she refused stating she knew she stopped the medications her blood pressure would return to normal. She is now off both BuSpar and venlafaxine with blood pressure 110/74 in office today. Patient feels her mood is stable currently without medications due to some decrease stressors in the home. Her qufqbs-tc-xft with whom she help caregive from Valentina's [...] Comment:Blood Release to pat i Narrative [facility] ([facility]BUL[facility]) - 03/16/2023 9:07 AM EDT Performed at: ??01 - [facility] [address] ??[id number] Metrology Specialist: Jacob Whaley PhD, Phone: ??[phone] Maria A Soria APRN LAB BLOOD ORDERABLES Final Result Performing Organization Address City/[facility]/ZIP Co de Phone Number [facility] (AMBULATORY) [address] [place] [address], [place] [phone] [facility] [address] [place] [address], [place] [phone] * (ABNORMAL) Lipid Panel (03/15/2023 10:03 AM [...] Comment:Blood Release to pat i Narrative [facility] ([facility]) - 03/16/2023 9:07 AM EDT Performed at: ??01 - [facility] [address] ??[id number] Metrology Specialist: Jacob Whaley PhD, Phone: ??[phone] Maria A Soria APRN LAB BLOOD ORDERABLES Final Result Performing Organization Address City/[facility]/ZIP Co de Phone Number [facility] [address] [place] [address], [place] [phone] [facility] [address] [place] [address], [place] [phone] * Hepatitis C Antibody (07/23/2019 10:03 AM EST) Pathologist [facility] Hepatitis C Ab Non-Reacti ve Non-Reacti ve 07/23/2019 6:31 PM EST [facility] Blood Venipuncture / Unknown 07/23/2019 10:03 AM EST 07/23/2019 10:38 AM EST Mukul Stevens MD LAB BLOOD ORDERABLES F inal Result Performing Organization Address [facility]/ZIP Co de Phone Number [facility]
[address] [place] [address], [place] [phone] * (ABNORMAL) Protein, Urine, 24 Hour (07/23/2016 7:22 PM EST) [facility] Protein, 24H Urine 6,460.0(H) 42.0 - 225.0 mg/24hours 07/24/2016 9:25 PM EST [facility] Total Protein, Urine 380.0(H) 1.0 - 14.0 mg/dL 07/24/2016 9:25 PM EST [facility] 24H Urine Volume 1,700 mL 07/24/2016 9:25 PM EST [facility] Time (Hours) 24 hrs 07/24/2016 9:25 PM EST [facility] 24 Hour Urine Urine specimen collection, clean catch / Unknown Collection / Unknown 07/23/2016 7:22 PM EST 07/24/2016 7:24 PM EST [facility] - 07/24/2016 9:25 PM EST Reference ranges are based on a 24 hour period, interperet results accordingly. us Submitter Client URINE ORDERABLES Final Result Performing Organization Address [facility] Co de Phone Number [facility]
[address] [place] [address], [place] [phone] from Last 3 Months or Most Recently Relevant to Health Maintenance Insurance Advance Directives * CPR (Attempt to Resuscitate) [...] pulse or is breathing): Full Care Teams Engine Manager Relationship Specialty Start Date End Date Maria A Soria APRN [address] [place] [address] PCP - General Family Medicine 02/15/23
--- OUTSIDE RECORDS SUMMARY | 2024-06-04 07:56 | XMS_ITS | Encounter Summary ---
Author Organization [employer] Address [address] [place] [address] Care Team Providers Care Inventory Control Manager Name Role Phone Unavailable Primary Care Provider Unavailabl e Encounter Details Date Type Department Care Team (Late st Contact Info) Description 12/24/2018 Transcribed Document [facility] [place] Family Medicine [facility] [place] [address] ProviderLaury MD [address] [place] [address] Social History Tobacco Use Types Packs/Day [...] - Non-urgent [facility] : [facility] Maddi Tomlin - 12/24/2018 15:05 EDT ED Visit Reason : Rash Primary Care Provider : Rema Ferreira, Retirement Assistant Accompanied By : Family/Spouse/SO Arrival Mode : [...] : No GI 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 : No Clearance Center Manager Hx : No Heart Attack : [...] Source : Stated Height Entry Format : [place] Height, Inches : 65 Inch(Converted to: 5 ft 5 Inch, 165.10 cm) Clinical Height : 165.1 cm Weight Source : Bed scale Weight Entry Format : [place] Weight, Pounds : 221 lb Clinical Dosing Weight : 100.45 kg Body Surface Area-(BSA) : 2.15 m2 Body Mass Index : 36.9 kg/m2 (HI) [place] Body Weight : 57 kg Maddi Tomlin [...] Chisholm RN; Reviewed Date: 12/24/2018 15:06 EDT documented in this encounter Plan of Treatment Not on file documented as of this encounter Visit Diagnoses Not on filedocumented in this encounter
--- OUTSIDE RECORDS SUMMARY | 2024-06-04 07:56 | XMS_ITS | Encounter Summary ---
Author Organization [facility] Address [address] [place] [address] Care Team Providers Care Machine Cage Maker Name Role Phone Maria A Soria RN DISCHARGE Primary Care Provider [phone] Reason for Visit * Reason Comments Follow-up Encounter Details Date Type Department Care Team (Late st Contact Info) Description 04/25/2023 11:30 AM EDT Office Visit [facility] [address] [place] [phone] Maria A Soria, RN DISCHARGE [address] [place] [address] Type 1 diabetes mellitus with [...] encounter Progress Notes * Maria A Soria, RN DISCHARGE - 04/25/2023 5:04 PM EDTAssociated Problem(s): Type [...] by [facility]. Stevens at [facility]. Working towards renal transplant with [facility].. * Maria A Soria APRN - 04/25/2023 [...] of 107. She reports she saw her windows application developer who wanted to increase her blood pressure medications but she refused stating she knew she stopped the medications her blood pressure would return to normal. She is now off both BuSpar and abner lafaxine with blood pressure 110/74 in office today. Patient feels her mood is stable currently without medications due to some decrease stressors in the home. Her gjwcez-oe-bda with whom she help edwar from Goode's disease, decreasing some of her personal obligations. [...] of 107. She reports she saw her windows application developer who wanted to increase her blood pressure medications but she refused stating she knew she stopped the medications her blood pressure would return to normal. She is now off both BuSpar and venlafaxine with blood pressure 110/74 in office today. 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 [...] 10/17/2012 SECTION GASTRIC SLEEVE LAPAROSCOPIC INDUCED 2006 [facility] No family history on file. Vital Signs [...] by Dr. Stevens at [facility]. Working towards renal transplant with [facility].. 5. Diarrhea, unspecified type Assessment & Plan: [...] of 107. She reports she saw her windows application developer who wanted to increase her blood pressure medications but she refused stating she knew she stopped the medications her blood pressure would return to normal. She is now off both BuSpar and abner lafaxine with blood pressure 110/74 in office today. Patient feels her mood is stable currently without medications due to some decrease stressors in the home. 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 [...] disorder documented in this encounter Care Teams Machine Cage Maker Relationship Specialty Start Date End Date Maria A Soria APRN [address] [place] [phone] PCP - General Family Medicine 02/15/23 documented as of this encounter
--- OUTSIDE RECORDS SUMMARY | 2024-06-04 07:56 | XMS_ITS | Encounter Summary ---
Author Organization [employer] Address [address] [place] [address] Care Team Providers Care Molding Machine Operator Name Role Phone Unavailable Primary Care Provider Unavailabl e Encounter Details Date Type Department Care Team (Late st Contact Info) Description 12/24/2018 Transcribed Document [facility] Family Medicine [address] [place] [address] ProviderLaury MD [address] [place] [address] Social History Tobacco Use Types Packs/Day [...] Laury ProviderMD - 12/24/2018 7:19 PM CDT [facility] ADDRESS [place], [place] [phone] Name:Crystal Archer Visit Date:12/24/2018 15:01:00 Emergency Department Care Providers: Physician: MEGHA MAN Physician: Our doctors and staff appreciate your choice of [facility] for your emergency medical care. Read these instructions carefully. Please call us if you have any questions about your medical problem. [facility] Emergency Department [phone] [facility] Emergency Department [phone] [facility] Emergency Department [phone] Patient Education Materials Gianni Crystal Jones has [...] Medicines may be prescribed or be available aqoe-vcu-hdbkinn. The medicines may be: ??? Taken by mouth (orally). ??? Applied as a cream. Follow these instructions at home: ??? Take or apply xded-qxo-lwvxnet and prescription medicines only as told by [...] 03/21/2012 Document Revised: 02/27/2017 Document Reviewed: 01/05/2016 Altimet Interactive Patient Education ? 2019 Meituan.com. FOLLOW UP CARE Most conditions that require [...] the x-ray department to pick them up [facility] # [phone] [facility] # [phone] o [facility] # [phone] ?? If you had cultures done and [...] quit. o National Network of Tobacco Cessation GRmnhkonr6-716-BHYP-NOW o [place] Lung Association o [place] Heart Association [phone] o Sai/Manuel Mccray [phone] FINANCIAL INFORMATION ?? [facility] provides financial counseling to anyone who requests our services. ?? Emergency Physicians are independently contracted to provide your care. You will receive a bill for the care provided to you by the Physician and/or the Physician Assistant Program Manager. This will be a separate bill [...] as recommended Patient Signature / or Patient Route Sales Trainee Provider Signature Date Electronically signed by Rochelle, [facility] Conversion Manager Bench Cerner at 10/19/2022 11:23 AM CDT documented in this encounter Plan of Treatment Not on file documented as of this encounter Visit Diagnoses Not on filedocumented in this encounter
--- OUTSIDE RECORDS SUMMARY | 2024-06-04 07:56 | XMS_ITS | Encounter Summary ---
Author Organization [employer] Address [address] [place] [address] Care Team Providers Care Quality Review Specialist Name Role Phone Unavailable Primary Care Provider Unavailabl e Encounter Details Date Type Department Care Team (Late st Contact Info) Description 09/07/2018 Transcribed Document [facility] Family Medicine [address] [place] [address] ProviderLaury MD [address] [place] [address] Social History Tobacco Use Types Packs/Day [...] - Laury ProviderMD - 09/07/2018 9:31 PM [facility] ADDRESS [place], [place] [phone] Name:Crystal Archer Visit Date:09/07/2018 15:20:00 Emergency Department Care Providers: Physician: MEGHA MAN Physician: Our doctors and staff appreciate your choice of [facility] for your emergency medical care. Read these instructions carefully. Please call us if you have any questions about your medical problem. [facility] Emergency Department [phone] [facility] Emergency Department [phone] [facility] Emergency Department [phone] Patient Education Materials Gianni Crystal Jones has [...] 12/15/2006 Document Revised: 03/06/2017 Document Reviewed: 12/11/2014 Carepeutics Interactive Patient Education ? 2017 Carepeutics Inc. FOLLOW UP CARE Most conditions that [...] x-ray department to pick them up o [facility] # [phone] o [facility] # [phone] o [facility] # [phone] ?? If you had cultures done and [...] quit. o National Network of Tobacco Cessation UWimqygsm1-798-GJAK-NOW o [place] Lung [employer] o [place] Heart [employer] [phone] o Sai/Manuel Mccray [phone] FINANCIAL INFORMATION ?? [facility] provides financial counseling to anyone who requests our services. ?? Emergency Physicians are independently contracted to provide your care. You will receive a bill for the care provided to you by the Physician and/or the Physician Pelt Grader. This will be a separate bill from [...] as recommended Patient Signature / or Patient Furnace Mason Provider Signature Date Date/Time 09/07/2018 16:31 Saint [...] oral tablet loratadine 10 mg oral capsule [place] 5 mg-325 mg oral tablet sodium bicarbonate [...]
--- OUTSIDE RECORDS SUMMARY | 2024-06-04 07:56 | XMS_ITS | Encounter Summary ---
Author Organization [employer] Address [address] [place] [address] Care Team Providers Care Electronic Engineering Technician Name Role Phone Unavailable Primary Care Provider Unavailabl e Encounter Details Date Type Department Care Team (Late st Contact Info) Description 08/03/2018 Transcribed Document [facility] Family Medicine [address] [place] [address] ProviderLaury MD [address] [place] [address] Social History Tobacco Use Types Packs/Day [...] - Laury ProviderMD - 08/03/2018 7:32 PM BET TAKER [facility] Emergency Department Depart Summary PERSON INFORMATION Name Crystal Archer Age 27 Years 1990 Sex Female Language PCP Marital Status Phone [id number] Visit Id Visit Reason Specialty Enc Type Emergency Med Service Referred by Track Group [facility] Discharge Tracking Id [id number] Checkout 08/03/2018 14:32:57 Checkin 08/03/2018 13:52:00 Acuity 3 - Urgent [facility] Dispo Type Arrival 08/03/2018 13:52:00 Reg Status LOS 000 00:40 Address: [address] [place] [address] [place] [address] POWERFORMS PHYSICIAN NOTES VITALS INFORMATION Vital Sign Triage Temp 98.1 Temp Route Oral/Mouth Pulse Rate 90 Respiratory Rate 18 Blood Pressure 152/ 87 LOCATION INFORMATION Arrival Nurse Unit Room Bed 08/03/2018 13:52:00 [facility] ED Waitroom ([facility]) 08/03/2018 13:55:29 [facility] ED 3 08/03/2018 14:32:57 [facility] ED Checkout ([facility]) MEDICAL INFORMATION Allergy Info: No Known Allergies PATIENT EDUCATION INFORMATION Instructions: Follow up: DIAGNOSIS documented in this encounter Plan of Treatment Not on file documented as of this encounter Visit Diagnoses Not on filedocumented in this encounter
--- OUTSIDE RECORDS SUMMARY | 2024-06-04 07:56 | XMS_ITS | Encounter Summary ---
Author Organization [employer] Address [address] [place] [address] Care Team Providers Care Needlemaker Name Role Phone Unavailable Primary Care Provider Unavailabl e Encounter Details Date Type Department Care Team (Late st Contact Info) Description 12/24/2018 Transcribed Document [facility] Family Medicine [address] [place] [address] ProviderLaury MD [address] [place] [address] Social History Tobacco Use Types Packs/Day [...] Laury ProviderMD - 12/24/2018 7:19 PM CDT [facility] ADDRESS [place], [place] [phone] Name:Crystal Archer Visit Date:12/24/2018 15:01:00 Emergency Department Care Providers: Physician: MEGHA MAN Physician: Our doctors and staff appreciate your choice of [facility] for your emergency medical care. Read these instructions carefully. Please call us if you have any questions about your medical problem. [facility] Emergency Department [phone] [facility] Emergency Department [phone] [facility] Emergency Department [phone] Patient Education Materials Gianni Crystal Jones has [...] Medicines may be prescribed or be available fnmp-lqe-jkgnzmn. The medicines may be: ??? Taken by mouth (orally). ??? Applied as a cream. Follow these instructions at home: ??? Take or apply oyoy-ueq-brxsqnn and prescription medicines only as told by [...] 03/21/2012 Document Revised: 02/27/2017 Document Reviewed: 01/05/2016 Silverback Systems Interactive Patient Education ? 2019 Vonage. FOLLOW UP CARE Most conditions that require [...] the x-ray department to pick them up [facility] # [phone] [facility] # [phone] o [facility] # [phone] ?? If you had cultures done and [...] quit. o National Network of Tobacco Cessation [id number]-[id number]-NOW o [place] Lung Association o [place] Heart Association [phone] o Sai/Manuel Mccray [phone] FINANCIAL INFORMATION ?? [facility] provides financial counseling to anyone who requests our services. ?? Emergency Physicians are independently contracted to provide your care. You will receive a bill for the care provided to you by the Physician and/or the Physician Electrical Worker. This will be a separate bill from [...] as recommended Patient Signature / or Patient Microstrategy Architect Developer Provider Signature Date Date/Time 12/24/2018 15:19 Saint [...] Date Electronically signed by Zuleyka Byrd Conversion It Infrastructure Project Manager Sandraner at 10/19/2022 11:23 AM CDT documented in this encounter Plan of Treatment Not on file documented as of this encounter Visit Diagnoses Not on filedocumented in this encounter
--- OUTSIDE RECORDS SUMMARY | 2024-06-04 07:56 | XMS_ITS | Encounter Summary ---
Author Organization [employer] Address [address] [place] [address] Care Team Providers Care Health Services Administrator Name Role Phone Unavailable Primary Care Provider Unavailabl e Encounter Details Date Type Department Care Team (Late st Contact Info) Description 09/07/2018 Transcribed Document [facility] Family Medicine [address] [place] [address] ProviderLaury MD [address] [place] [address] Social History Tobacco Use Types Packs/Day [...] - Laury ProviderMD - 09/07/2018 9:31 PM DISTILLERY [facility] ADDRESS [place], [place] [phone] Name:Crystal Archer Visit Date:09/07/2018 15:20:00 Emergency Department Care Providers: Physician: MEGHA MAN Physician: Our doctors and staff appreciate your choice of [facility] for your emergency medical care. Read these instructions carefully. Please call us if you have any questions about your medical problem. [facility] Emergency Department [phone] [facility] Emergency Department [phone] [facility] Emergency Department [phone] Patient Education Materials Gianni Crystal Jones has [...] 12/15/2006 Document Revised: 03/06/2017 Document Reviewed: 12/11/2014 SilkRoad [employer] Interactive Patient Education ? 2017 SilkRoad [employer] Inc. FOLLOW UP CARE Most conditions that [...] x-ray department to pick them up o [facility] # [phone] o [facility] # [phone] o [facility] # [phone] ?? If you had cultures done and [...] quit. o National Network of Tobacco Cessation [id number]-POQP-NOW o [place] Lung Association o [place] Heart Association [phone] o Sai/Manuel Mccray [phone] FINANCIAL INFORMATION ?? [facility] provides financial counseling to anyone who requests our services. ?? Emergency Physicians are independently contracted to provide your care. You will receive a bill for the care provided to you by the Physician and/or the Physician Pst Specialist. This will be a separate bill [...] as recommended Patient Signature / or Patient Lead Performance Support Analyst Provider Signature Date documented in this encounter Plan of Treatment Not on file documented as of this encounter Visit Diagnoses Not on filedocumented in this encounter
--- OUTSIDE RECORDS SUMMARY | 2024-06-04 07:56 | XMS_ITS | Encounter Summary ---
Author Organization [employer] Address [address] [place] [address] Care Team Providers Care Blade Changer Name Role Phone Unavailable Primary Care Provider Unavailabl e Encounter Details Date Type Department Care Team (Late st Contact Info) Description 10/31/2018 Transcribed Document [facility] Family Medicine [address] [place] [address] ProviderLaury MD [address] [place] [id number] Social History Tobacco Use Types Packs/Day Years [...] Laury ProviderMD - 10/31/2018 1:17 AM CDT [facility] Emergency Department Depart Summary PERSON INFORMATION Name Crystal Archer Age 28 Years 1990 Sex Female Language PCP Marital Status Phone [id number] Visit Id Visit Reason Specialty Enc Type Emergency Med Service Referred by Track Group [facility] Discharge Tracking Id [id number] Checkout 10/30/2018 21:17:02 Checkin 10/30/2018 20:23:00 Acuity 4 - Non-urgent [facility] Dispo Type Arrival 10/30/2018 20:23:00 Reg Status LOS 000 00:54 Address: [address] [place], [place] [address]T [place] [address] POWERFORMS PHYSICIAN NOTES VITALS INFORMATION Vital Sign Triage Temp 99 Temp Route Oral/Mouth Pulse Rate 92 Respiratory Rate 22 Blood Pressure 169/ 99 LOCATION INFORMATION Arrival Nurse Unit Room Bed 10/30/2018 20:23:00 [facility] ED Waitroom ([facility]) 10/30/2018 20:35:06 [facility] ED 9 10/30/2018 21:17:02 [facility] ED Checkout ([facility]) MEDICAL INFORMATION Allergy Info: No Known [...]
--- OUTSIDE RECORDS SUMMARY | 2024-06-04 07:56 | XMS_ITS | Encounter Summary ---
Author Organization [employer] Address [address] [place] [address] Care Team Providers Care Track Sweeper Name Role Phone Unavailable Primary Care Provider Unavailabl e Encounter Details Date Type Department Care Team (Late st Contact Info) Description 08/03/2018 Historic Encounter [facility] [address] [place] [address] Alan Cline DO [address] [facility] Dept. [place] [address] Social History Tobacco Use Types Packs/Day Years [...] PM EST) Urinalysis, Other NONE SEEN /HPF [facility] Crystals, Urine NONE SEEN NONE SEEN [facility] Ketones, UA NEGATIVE NEGATIVE [facility] Urobilinogen, UA 0.2 0.2 - 1.0 [facility] Color, UA LIGHT YELLOW YEL, L. YEL [facility] Urine Casts NONE SEEN NONE SEEN [facility] RBC, UA 0-2 NONE, 0-2 [facility] Specific [place], UA 1.020 1.005 - 1.030 [facility] Nitrite, UA NEGATIVE NEGATIVE [facility] SQUAMOUS EPITHELIAL 0-2 NONE, 0-2 [facility] Clarity, UA CLEAR CLEAR, [facility] Amorphous Crystals TRACE NONE, TRACE [facility] Blood, UA TRACE-LYSED NEGATIVE [facility] Leukocytes, UA NEGATIVE NEGATIVE [facility] Bacteria, UA TRACE NONE, [facility]ACE [facility] Glucose, UA TRACE NEGATIVE [facility] pH, UA 7.0 6.0 - 7.5 [facility] WBC, UA 0-5 NONE, 0-5 [facility] Bilirubin, UA NEGATIVE NEGATIVE [facility] Mucus 1+(A) NONE, TRACE [facility] Protein, UA 2+(A) NEGATIVE [facility] 08/03/2018 1:56 PM EST Alan Cline DO URINE ORDERABLES Final Result [facility] [address] [phone] * HCG Urine POC (08/03/2018 1:56 PM EST) POC, URINE HCG NEGATIVE [facility] Specific [place], UA 1.020 1.005 - 1.030 [facility] 08/03/2018 1:56 PM EST Alan Cline DO POINT OF CARE TEST ORDERABLES Final Result Performing Organization Address City/State/[facility] Co de Phone Number [facility] [address] [phone] documented in this encounter Visit Diagnoses Not on filedocumented in this encounter
--- OUTSIDE RECORDS SUMMARY | 2024-06-04 07:56 | XMS_ITS | Encounter Summary ---
Author Organization [employer] Address [address] [place] [address] Care Team Providers Care Dental Technology Advisor Name Role Phone Unavailable Primary Care Provider Unavailabl e Encounter Details Date Type Department Care Team (Late st Contact Info) Description 08/24/2019 Transcribed Document [facility] Family Medicine [address] [place] [address] ProviderLaury MD [address] [place] [address] Social History Tobacco Use Types Packs/Day [...] - Historical ProviderMD - 08/24/2019 2:30 PM BLUE CRABBER AYLINE Matt PreOp Summary Primary Physician: LARRY MARTINES MD-SUR Finalized Date/Time: 08/24/19 10:30:24 Pt. Name: FREDDIE ARCHER FELICIA /Sex: 1990 Female Med Rec #: [id number] Physician: LARRY MARTINES MD-SUR Financial #: [id number] Pt. Type: O Room/Bed: [facility]/ Admit/Disch: 08/24/19 09:42:00 - Institution: [facility] PreOp Case Times Entry 1 In Preop 08/24/19 10:06:00 Ready for Holding n/a Room Patient Ready for 08/24/19 10:30:00 Surgery Patient Out of Preop 08/24/19 10:30:00 Patient Out of n/a Holding Room [facility] PreOp Case Times Audit 08/24/19 10:30:23 Rf Manager: GEOVANNA Modifier: [email or web address] <+> 1 Patient Out of Preop <+> 1 Patient Ready for Surgery Finalized By: ANGE Green RN Document Signatures Signed By: ANGE Green RN 08/24/19 10:30 Electronically signed by Rochelle [facility] Conversion Senior Principal Software Engineer Cerner at 11/02/2022 10:00 AM CDT documented in this encounter Plan of Treatment Not on file documented as of this encounter Visit Diagnoses Not on filedocumented in this encounter
--- OUTSIDE RECORDS SUMMARY | 2024-06-04 07:56 | XMS_ITS | Encounter Summary ---
Author Organization [employer] Address [address] [place] [address] Care Team Providers Care Docking Pilot Name Role Phone Unavailable Primary Care Provider Unavailabl e Encounter Details Date Type Department Care Team (Late st Contact Info) Description 04/25/2019 Abstract [facility] [address] [place] [address] Cb Renee MD [address] [place] [address] Social History Tobacco Use Types Packs/Day Years [...]
--- OUTSIDE RECORDS SUMMARY | 2024-06-04 07:56 | XMS_ITS | Encounter Summary ---
Author Organization [employer] Address [address] [place] [address] Care Team Providers Care Dental Equipment Technician Name Role Phone Unavailable Primary Care Provider Unavailabl e Encounter Details Date Type Department Care Team (Late st Contact Info) Description 01/07/2019 Transcribed Document [facility] Family Medicine [address] [place] [address] ProviderLaury MD [address] [place] [address] Social History Tobacco Use Types Packs/Day [...] : No GI 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 : No Finishing Range Feeder Hx : No Heart Attack : No [...] Open Allergy Profile, Med Rec : Open Peral Waller - 01/07/2019 19:08 EDT Medication List [...] Assessment Grid Acceptable Intensity : 4 Pearl Walelr - 01/07/2019 19:08 EDT documented in this encounter Plan of Treatment Not on file documented as of this encounter Visit Diagnoses Not on filedocumented in this encounter
--- OUTSIDE RECORDS SUMMARY | 2024-06-04 07:56 | XMS_ITS | Encounter Summary ---
Author Organization [employer] Address [address] [place] [address] Care Team Providers Care Mud Jack Nozzleman Name Role Phone Unavailable Primary Care Provider Unavailabl e Encounter Details Date Type Department Care Team (Late st Contact Info) Description 10/31/2018 Transcribed Document [facility] Family Medicine [facility] [place] [address] ProviderLaury MD [address] [place] [address] [id number] Social History Tobacco Use Types Packs/Day Years [...] Laury ProviderMD - 10/31/2018 1:17 AM CDT [facility] ADDRESS [place], [place] [phone] Name:Crysatl Archer Visit Date:10/30/2018 20:23:00 Emergency Department Care Providers: Physician: MEGHA MAN Physician: Our doctors and staff appreciate your choice of [facility] for your emergency medical care. Read these instructions carefully. Please call us if you have any questions about your medical problem. [facility] Emergency Department [phone] [facility] Emergency Department [phone] [facility] Emergency Department [phone] Patient Education Materials Gianni Crystal Jones has [...] 10/19/2011 Document Revised: 11/11/2016 Document Reviewed: 06/30/2015 ElseLevelUp Interactive Patient Education ? 2017 [employer]. FOLLOW UP CARE Most conditions that [...] x-ray department to pick them up o [facility] # [phone] o [facility] # [phone] o [facility] # [phone] ?? If you had cultures done and [...] quit. o National Network of Tobacco Cessation [id number]-NOW o [place] Lung Association o [place] Heart Association [phone] o Sai/Manuel Mccray [phone] FINANCIAL INFORMATION ?? [facility] provides financial counseling to anyone who requests our services. ?? Emergency Physicians are independently contracted to provide your care. You will receive a bill for the care provided to you by the Physician and/or the Physician Cinetechnician. This will be a separate bill from [...] Emergency Department Within As needed Comments: I, Crytsal Archer, have received a copy of these discharge instructions and acknowledge understanding of these instructions. . I understand that my condition may require more care and will arrange for further treatment as recommended Patient Signature / or Patient Mountain Services Manager Provider Signature Date Electronically signed by Zuleyka Byrd Conversion Java Front End Web Developer Sandraner at 10/19/2022 11:23 AM CDT documented in this encounter Plan of Treatment Not on file documented as of this encounter Visit Diagnoses Not on filedocumented in this encounter
--- OUTSIDE RECORDS SUMMARY | 2024-06-04 07:56 | XMS_ITS | Encounter Summary ---
Author Organization [facility] Address [address] [place] [address] Care Team Providers Care Managing Partner Name Role Phone Maria A Soria DIRECTOR EMPLOYEE COMMUNICATIONS Primary Care Provider [phone] Reason for Visit * Reason Onset Date Comments Med Refill 02/16/2023 Encounter Details Date Type Department Care Team (Late st Contact Info) Description 02/16/2023 Refill [facility] [address] [place] [phone] Maria A Soria, DIRECTOR EMPLOYEE COMMUNICATIONS [address] [place] [address] Persistent depressive disorder Social History [...] encounter Miscellaneous Notes * Telephone Encounter - [place], Betsey, MA - 02/16/2023 1:44 PM EDT Last visit on 02/16/2023 Rx sent * Telephone Encounter - Jessenia Gomes RegSched Rep - 02/16/2023 1:31 PM EDT Caller: FREDDIE ARCHER Relationship: SELF Best call back number: [phone] Requested Prescriptions: Requested Prescriptions Pending Prescriptions Disp Refills buPROPion XL (Wellbutrin XL) 150 MG 24 hr tablet 90 tablet 0 Sig: Take 1 tablet by mouth Daily. Pharmacy where request should be sent: [facility] [address] [place] [address] [place] [address] [facility] [phone] FX Last office visit with prescribing clinician: [...] disorder documented in this encounter Care Teams Managing Partner Relationship Specialty Start Date End Date Maria A Soria APRN [address] [place] [address] PCP - General Family Medicine 02/15/23 documented as of this encounter
--- OUTSIDE RECORDS SUMMARY | 2024-06-04 07:56 | XMS_ITS | Encounter Summary ---
Author Organization [facility] Address [address] [id number] Care Team Providers Care Superintendent Radio Communications Name Role Phone Maria A Soria Vivek RENE Primary Care Provider [phone] Encounter Details Date Type Department Care Team (Late st Contact Info) Description 02/16/2023 Patient rounding ([facility]) [facility] [address] [place] [address] [place] [phone] Chey Coello Social History Tobacco Use [...] - 02/16/2023 2:20 PM EDTSummary: Rounding ..A FeZo message has been sent to the patient for patient rounding with [facility]. documented in this encounter Plan of Treatment Not on file documented as of this encounter Visit Diagnoses Not on filedocumented in this encounter Care Teams Superintendent Radio Communications Relationship Specialty Start Date End Date Maria A Soria APRN [address] [place] [address] PCP - General Family Medicine 02/15/23 documented as of this encounter
--- OUTSIDE RECORDS SUMMARY | 2024-06-04 07:56 | XMS_ITS | Encounter Summary ---
Author Organization [employer] Address [address] [place] [address] Care Team Providers Care Telephone Information Supervisor Name Role Phone Unavailable Primary Care Provider Unavailabl e Encounter Details Date Type Department Care Team (Late st Contact Info) Description 09/26/2018 Historic Encounter [address] [phone] ProviderJen Historical Social History Tobacco [...] PM EDT) MCHC 32.7 32.2 - 35.5 [facility] % Monos 5.6 4.7 - 12.5 % [facility] Hemoglobin 10.1(L) 11.2 - 15.7 [facility] RDW 12.2 11.7 - 14.4 % [facility] % Eos 3.9 0.7 - 5.8 % [facility] Hematocrit 30.9(L) 34.1 - 44.9 % [facility] Platelets 212 182 - 369 [facility] % Baso 0.2 0.1 - 1.2 % [facility] MCV 87 79 - 95 [facility] % Neutros 59.5 34.0 - 71.1 [facility] Immature Granulocytes-Re lative 0.3 0.0 - 0.5 % [facility] WBC 10.4(H) 4.0 - 10.0 [facility] MCH 28.5 25.6 - 32.2 pg [facility] % Lymphs 30.5 19.3 - 51.7 % [facility] RBC 3.54(L) 3.93 - 5.22 [facility] 09/26/2018 5:27 PM EDT us [facility] Historical Provider LAB BLOOD ORDERABLES Fi nal Result [facility] [address] [place], [place] [address] [phone] * (ABNORMAL) Basic Metabolic Panel (09/26/2018 5:27 PM EDT) Calcium 8.4(L) 8.5 - 10.1 mg/dL [facility] Sodium 136 136 - 145 mMole/Lite r [facility] Potassium 4.0 3.5 - 5.1 mMole/Lite r [facility] Glucose 172(H) 74 - 99 [facility] Chloride 100 98 - 107 mMole/Lite r [facility] Creatinine 3.56(H) 0.55 - 1.02 mg/dL [facility] BUN 48(H) 7 - 18 mg/dL [facility] CO2 26 21 - 32 mMole/Lite r [facility] eGFR Non (mL/min/1.73m2) 15.1(L) >60 [facility] 09/26/2018 5:27 PM EDT [facility] Provider LAB BLOOD ORDERABLES Fi nal Result Performing Organization Address City/[facility]/ZIP Co de Phone Number [facility] [address] [phone] * HCG Urine POC (09/26/2018 4:49 PM EDT) Specific [place], UA 1.010 1.005 - 1.030 [facility] POC, URINE HCG NEGATIVE [facility] 09/26/2018 4:49 PM EDT Result [facility] Provider POINT OF CARE TEST ORDE RABLES Final Result Performing Organization Address City/[facility]/ZIP Co de Phone Number [facility] [address] [phone] * (ABNORMAL) Urinalysis, Reflex Microscopic and Culture If Indicated (09/26/2018 4:49 PM EDT) Blood, UA 1+ NEGATIVE [facility] Leukocytes, UA NEGATIVE NEGATIVE [facility] Mucus TRACE NONE, TRACE [facility] Glucose, UA TRACE NEGATIVE [facility] pH, UA 6.5 6.0 - 7.5 [facility] SQUAMOUS EPITHELIAL 0-2 NONE, 0-2 [facility] Bilirubin, UA NEGATIVE NEGATIVE [facility] Urinalysis, Other NONE SEEN /HPF [facility] Protein, UA 2+(A) NEGATIVE [facility] Crystals, Urine NONE SEEN NONE SEEN [facility] WBC, UA 0-5 NONE, 0-5 [facility] Urine Casts NONE SEEN NONE SEEN [facility] Ketones, UA NEGATIVE NEGATIVE [facility] Urobilinogen, UA 0.2 0.2 - 1.0 [facility] Bacteria, UA 1+(A) NONE, TRACE [facility] Color, UA LIGHT YELLOW YEL, L. YEL [facility] Specific [place], UA 1.010 1.005 - 1.030 [facility] RBC, UA 5-10(A) NONE, 0-2 [facility] Nitrite, UA NEGATIVE NEGATIVE [facility] Amorphous Crystals TRACE NONE, TRACE [facility] Clarity, UA CLEAR CLEAR, HAZY [facility] 09/26/2018 4:49 PM EDT [facility] Historical Provider URINE ORDERABLES Final Result [facility] [address] [phone] documented in this encounter Visit Diagnoses Not on filedocumented in this encounter
--- OUTSIDE RECORDS SUMMARY | 2024-06-04 07:56 | XMS_ITS | Encounter Summary ---
Author Organization [employer] Address [address] [place] [address] Care Team Providers Care Yarding Supervisor Name Role Phone Unavailable Primary Care Provider Unavailabl e Encounter Details Date Type Department Care Team (Late st Contact Info) Description 09/26/2018 Transcribed Document [facility] [place] [place] Medicine Counts [facility] [address] ProviderLaury MD [address] [place] [address] Social History Tobacco Use Types Packs/Day [...] Complaints Primary Care Provider : Rema Ferreira, Liquid Yeast Supervisor Accompanied By : Family/Spouse/SO Arrival Mode : [...] : No GI 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 : No Batch Attendant Hx : No Heart Attack : No [...] Preferred Communication Mode : Verbal Languages : Latvian Child/Parent Domestic Concerns : None Threats of Suicide : No Marry Erickson 09/26/2018 16:51 EDT Height and Weight Height Source : Stated Height Entry Format : [place] Height, Inches : 65 Inch(Converted to: 5 ft 5 Inch, 165.10 cm) Clinical Height : 165.1 cm Weight Source : Stated Type of Weight Measurement Est : [place] Weight, est lb : 213 lb Estimated Clinical Dosing Weight : 96.82 kg [place] Body Weight : 57 kg Body Surface [...] ; Status: Documented ; Ordered As Mnemonic: [place] 5 mg-325 mg oral tablet ; [...]
--- OUTSIDE RECORDS SUMMARY | 2024-06-04 07:56 | XMS_ITS | Encounter Summary ---
Author Organization [employer] Address [address] [place] [address] Care Team Providers Care Maintenance Operator Name Role Phone Unavailable Primary Care Provider Unavailabl e Encounter Details Date Type Department Care Team (Late st Contact Info) Description 01/08/2019 Transcribed Document [facility] [address] [place] [address] ProviderLaury MD [address] [place] [id number] Social History Tobacco Use Types Packs/Day Years [...] Laury ProviderMD - 01/08/2019 12:31 AM CDT [facility] ADDRESS [place], [place] [phone] Name:Crystal Archer Visit Date:01/07/2019 18:52:00 Emergency Department Care Providers: Physician: Physician: Our doctors and staff appreciate your choice of [facility] for your emergency medical care. Read these instructions carefully. Please call us if you have any questions about your medical problem. [facility] Emergency Department [phone] [facility] Emergency Department [phone] [facility] Emergency Department [phone] Patient Education Materials Crystal Archersil has been [...] department to pick them up o [facility] # [phone] o [facility] # [phone] o [facility] # [phone] ?? If you had cultures done and [...] quit. o National Network of Tobacco Cessation [id number]-EOGW-NOW o [employer] o [place] 7-768640-8244 o Sai/Manuel Mahendra [phone] FINANCIAL INFORMATION ?? [facility] provides financial counseling to anyone who requests our services. ?? Emergency Physicians are independently contracted to provide your care. You will receive a bill for the care provided to you by the Physician and/or the Physician Brass Plater. This will be a separate bill from [...] recommended Patient Signature / or Patient Supervisor Green End Department Provider Signature Date Electronically signed by Zuleyka Byrd Conversion Electronics Engineering Technologist Sandraner at 10/19/2022 11:23 AM CDT documented in this encounter Plan of Treatment Not on file documented as of this encounter Visit Diagnoses Not on filedocumented in this encounter
--- OUTSIDE RECORDS SUMMARY | 2024-06-04 07:56 | XMS_ITS | Encounter Summary ---
Author Organization [employer] [facility] [employer] Address [address] [place] [address] Care Team Providers Care Porter Head Name Role Phone Unavailable Primary Care Provider Unavailabl e Encounter Details Date Type Department Care Team (Late st Contact Info) Description 08/03/2018 Transcribed Document [facility] Medicine [address] [place] [address] ProviderLaury MD [address] [place] [address] Social History Tobacco Use Types Packs/Day [...] - Laury ProviderMD - 08/03/2018 7:32 PM ROCK CRUSHER OPERATOR [facility] ADDRESS [place], [place] [phone] Name:Crystal Archer Visit Date:08/03/2018 13:52:00 Emergency Department Care Providers: Physician: MEGHA AMN Physician: Our doctors and staff appreciate your choice of [facility] for your emergency medical care. Read these instructions carefully. Please call us if you have any questions about your medical problem. [facility] Emergency Department [phone] [facility] Emergency Department [phone] [facility] Emergency Department [phone] Patient Education Materials Gianni Crystal Jones has [...] x-ray department to pick them up o [facility] # [phone] o [facility] # [phone] o [facility] # [phone] ?? If you had cultures done and [...] quit. o National Network of Tobacco Cessation PLuuhonlj2-814-WVFE-NOW o [employer] Lung Association o [employer] Heart Association 7-285810-2309 o Sai/Manuel Mahendra [phone] FINANCIAL INFORMATION ?? [facility] provides financial counseling to anyone who requests our services. ?? Emergency Physicians are independently contracted to provide your care. You will receive a bill for the care provided to you by the Physician and/or the Physician Registered Nurse Teacher. This will be a separate bill from [...] as recommended Patient Signature / or Patient Hogshead Stock Clerk Provider Signature Date Date/Time 08/03/2018 14:32 [facility] [...]
--- OUTSIDE RECORDS SUMMARY | 2024-06-04 07:56 | XMS_ITS | Encounter Summary ---
Author Organization [employer] Address [address] [place] [address] Care Team Providers Care Florist Name Role Phone Unavailable Primary Care Provider Unavailabl e Encounter Details Date Type Department Care Team (Late st Contact Info) Description 08/03/2018 Transcribed Document [facility] [place] Family Medicine [address] [place] [address] ProviderLaury MD [address] [place] [address] Social History Tobacco Use Types Packs/Day [...] - Laury ProviderMD - 08/03/2018 6:57 PM DERRICK WORKER WELL SERVICE BBK Triage ED Entered On: 08/03/2018 14:06 [...] back pain, dysuria since 0430. D/CD from [facility] 07/22 AMA for UTI. Health History Reviewed [...] : No GI 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 : No Epoxy Specialist Hx : No Heart Attack : No [...] Preferred Communication Mode : Verbal Languages : Honduran Child/Parent Domestic Concerns : None Threats of Suicide : No ROSA FOSTER 08/03/2018 13:57 EST Height and Weight Height Source : Stated Height Entry Format : [place] Height, Inches : 65 Inch(Converted to: 5 ft 5 Inch, 165.10 cm) Clinical Height : 165.1 cm Weight Source : Stated Type of Weight Measurement Est : [place] Weight, est lb : 215 lb Estimated Clinical Dosing Weight : 97.73 kg [place] Body Weight : 57 kg Body Surface [...]
--- OUTSIDE RECORDS SUMMARY | 2024-06-04 07:56 | XMS_ITS | Encounter Summary ---
Author Organization [employer] Address [address] [place] [address] Care Team Providers Care Apparatus Operator Name Role Phone Unavailable Primary Care Provider Unavailabl e Encounter Details Date Type Department Care Team (Late st Contact Info) Description 10/31/2018 Transcribed Document [facility] [place] Family Medicine [address] [place] [address] ProviderLaury MD [address] [place] [address] Social History Tobacco Use Types Packs/Day [...] Complaint Primary Care Provider : Rema Ferreira, Mix Mill Tender Accompanied By : Family/Spouse/SO Arrival Mode : [...] : No GI 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 : No Light Fixture Servicer Hx : No Heart Attack : No [...] Preferred Communication Mode : Verbal Languages : Citizen [place] Child/Parent Domestic Concerns : None Threats of Suicide : No Jasen summer10/30/2018 20:29 EDT Height and Weight Height Source : Stated Height Entry Format : [place] Height, Inches : 65 Inch(Converted to: 5 ft 5 Inch, 165.10 cm) Clinical Height : 165.1 cm Weight Source : Stated Type of Weight Measurement Est : [place] Weight, est lb : 214 lb Estimated Clinical Dosing Weight : 97.27 kg [place] Body Weight : 57 kg Body Surface [...] ; Status: Processing ; Ordered As Mnemonic: [place] 5 mg-325 mg oral tablet ; Simple [...] 10 Aggarwal, Summer - 10/30/2018 20:29 EDT documented in this encounter Plan of Treatment Not on file documented as of this encounter Visit Diagnoses Not on filedocumented in this encounter
--- OUTSIDE RECORDS SUMMARY | 2024-06-04 07:56 | XMS_ITS | Encounter Summary ---
Author Organization [employer] Address [address] [place] [address] Care Team Providers Care Chart Writer Name Role Phone Unavailable Primary Care Provider Unavailabl e Encounter Details Date Type Department Care Team (Late st Contact Info) Description 11/19/2018 Transcribed Document [facility] [place] [address] [place] [address] ProviderLaury MD [address] [place] [address] Social History Tobacco Use Types Packs/Day [...] - Non-urgent BBK Tracking Group : [facility] [place] Dre, Marry 11/18/2018 20:14 EDT ED Visit [...] : No GI 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 : No Tree Topper Hx : No Heart Attack : No [...] Preferred Communication Mode : Verbal Languages : Maltese Child/Parent Domestic Concerns : None Threats of Suicide : No Marry Erickson 11/18/2018 20:14 EDT Height and Weight Height Source : Stated Height Entry Format : [place] Height, Inches : 65 Inch(Converted to: 5 ft 5 Inch, 165.10 cm) Clinical Height : 165.1 cm Weight Source : Bed scale Weight Entry Format : [place] Weight, Pounds : 220 lb Clinical Dosing Weight : 100 kg Body Surface Area-(BSA) : 2.14 m2 Body Mass Index : 36.7 kg/m2 (HI) [place] Body Weight : 57 kg Marry Erickson [...] : 8 Marry Erickson 11/18/2018 20:14 EDT Electronically signed by Zuleyka Byrd Conversion Director Corporate Communications Sandraner at 10/19/2022 11:23 AM CDT documented in this encounter Plan of Treatment Not on file documented as of this encounter Visit Diagnoses Not on filedocumented in this encounter
--- OUTSIDE RECORDS SUMMARY | 2024-06-04 07:56 | XMS_ITS | Encounter Summary ---
Author Organization [facility] Address [address] [place] [address] Care Team Providers Care Marketing Communications Assistant Name Role Phone Maria A Soria SEWER DIGGER Primary Care Provider [phone] Reason for Visit * Reason Onset Date Comments FYI 03/16/2023 Encounter Details Date Type Department Care Team (Late st Contact Info) Description 03/16/2023 Telephone [facility] [address] [place] [phone] Maria A Soria, SEWER DIGGER [address] [place] [address] FYI Social History Tobacco Use [...] Archer Relationship: Self Best call back number: [phone] What was the call regarding: PATIENT STATES THAT SHE HAD THE C-DIFF TEST AND TURNED IT IN TO [facility] documented in this encounter Plan of Treatment Not on file documented as of this encounter Visit Diagnoses Not on filedocumented in this encounter Additional Health Concerns Infection Onset Date Last Indicated Resolved Time C.difficile (rule out) 03/15/2023 03/16/202303/20 9:08 PM EDT documented as of this encounter Care Teams Marketing Communications Assistant Relationship Specialty Start Date End Date Maria A Soria APRN [address] [place], [place] [id number] PCP - General Family Medicine 02/15/23 documented as of this encounter
--- OUTSIDE RECORDS SUMMARY | 2024-06-04 07:56 | XMS_ITS | Encounter Summary ---
Author Organization [employer] Address [address] [place] [address] Care Team Providers Care Scrap Shear Operator Name Role Phone Unavailable Primary Care Provider Unavailabl e Encounter Details Date Type Department Care Team (Late st Contact Info) Description 11/19/2018 Transcribed Document [facility] [place] [address] [place] [address] ProviderLaury MD [address] [place] [address] Social History Tobacco Use Types Packs/Day [...] Laury ProviderMD - 11/19/2018 1:52 AM CDT [facility] Emergency Department Depart Summary PERSON INFORMATION Name Crystal Archer Age 28 Years 1990 Sex Female Language PCP Marital Status Phone [phone] Visit Id Visit Reason Specialty Enc Type Emergency Med Service Referred by Track Group [facility] Discharge Tracking Id [id number] Checkout 11/18/2018 21:52:54 Checkin 11/18/2018 20:06:00 Acuity 4 - Non-urgent [facility] Dispo Type Arrival 11/18/2018 20:06:00 Reg Status LOS 000 01:46 Address: [address] [place], [place] [address]T [place] [address] POWERFORMS PHYSICIAN NOTES VITALS INFORMATION Vital Sign Triage Temp 99.0 Temp Route Oral/Mouth Pulse Rate 107 Respiratory Rate 18 Blood Pressure 147/ 87 LOCATION INFORMATION Arrival Nurse Unit Room Bed 11/18/2018 20:06:00 [facility] ED Waitroom ([facility]) 11/18/2018 20:10:40 [facility] ED 8 11/18/2018 21:33:06 [facility] ED STA-3 11/18/2018 21:52:54 [facility] ED Checkout ([facility]) MEDICAL INFORMATION Allergy Info: No Known Allergies PATIENT EDUCATION INFORMATION Instructions: Urinary Tract Infection, Adult, [id number]; Otitis Media, Adult, [id number] Follow up: With: Address: When: Follow up with primary care provider Within 1-2 days With: Address: When: Return to Emergency Department Within As needed DIAGNOSIS documented in this encounter Plan of Treatment Not on file documented as of this encounter Visit Diagnoses Not on filedocumented in this encounter
--- OUTSIDE RECORDS SUMMARY | 2024-06-04 07:56 | XMS_ITS | Encounter Summary ---
[facility] Address [address] [id number] Care Team Providers Care Die Maker Trim Name Role Phone Maria A Soria INSULATION BLOWER Primary Care Provider [phone] Encounter Details Date Type Department Care Team (Late st Contact Info) Description 03/18/2023 Telephone [facility]IMARY [facility]ARE [address] [place] [phone] Maria A Soria, INSULATION BLOWER [address] [place], [place] [id number] Social History Tobacco Use Types Packs/Day Years [...] documented as of this encounter Care Teams Die Maker Trim Relationship Specialty Start Date End Date Maria A Soria APRN [address] [place], [place] [id number] PCP - General Family Medicine 02/15/23 documented as of this encounter
--- OUTSIDE RECORDS SUMMARY | 2024-06-04 07:56 | XMS_ITS | Encounter Summary ---
Author Organization [employer] Address [address] [place] [address] Care Team Providers Care Key Filer Name Role Phone Unavailable Primary Care Provider Unavailabl e Encounter Details Date Type Department Care Team (Late st Contact Info) Description 01/08/2019 Transcribed Document [facility] Family Medicine [address] [place] [address] ProviderLaury MD [address] [place] [address] [phone] Social History Tobacco Use Types Packs/Day Years [...] Laury ProviderMD - 01/08/2019 12:31 AM CDT [facility] ADDRESS [place], [place] [phone] Name:Crystal Archer Visit Date:01/07/2019 18:52:00 Emergency Department Care Providers: Physician: Physician: Our doctors and staff appreciate your choice of [facility] for your emergency medical care. Read these instructions carefully. Please call us if you have any questions about your medical problem. [facility] Emergency Department [phone] [facility] Emergency Department [phone] [facility] Emergency Department [phone] Patient Education Materials Crystal Archersil has been [...] x-ray department to pick them up o [facility] # [phone] o [facility] # [phone] o [facility] # [phone] ?? If you had cultures done and [...] quit. o National Network of Tobacco Cessation QSwcolpnb7-693-CAXN-NOW o [place] o [place] [employer] [phone] o Sai/Manuel Mahendra [phone] FINANCIAL INFORMATION ?? [facility] provides financial counseling to anyone who requests our services. ?? Emergency Physicians are independently contracted to provide your care. You will receive a bill for the care provided to you by the Physician and/or the Physician Supervisor Airplane Flight Attendant. This will be a separate bill from [...] as recommended Patient Signature / or Patient Welcome Desk Agent Provider Signature Date Date/Time 01/07/2019 20:31 Saint [...] Date Electronically signed by Zuleyka Byrd Conversion Ibm Websphere Portal Developer Keysha at 10/19/2022 11:23 AM CDT documented in this encounter Plan of Treatment Not on file documented as of this encounter Visit Diagnoses Not on filedocumented in this encounter
--- OUTSIDE RECORDS SUMMARY | 2024-06-04 07:56 | XMS_ITS | Encounter Summary ---
Author Organization [employer] Address [address] [place] [address] Care Team Providers Care Product Support Analyst Name Role Phone Unavailable Primary Care Provider Unavailabl e Encounter Details Date Type Department Care Team (Late st Contact Info) Description 09/26/2018 Transcribed Document [facility] [place] Medicine [address] [place] [address] ProviderLaury MD [address] [place] [address] [id number] Social History Tobacco Use Types Packs/Day Years [...] Laury ProviderMD - 09/26/2018 10:56 PM CDT [facility] ADDR[facility] [place], [place] [phone] Name:Crystal Archer Visit Date:09/26/2018 16:44:00 Emergency Department Care Providers: Physician: INDIO PEREA Physician: Our doctors and staff appreciate your choice of [facility] for your emergency medical care. Read these instructions carefully. Please call us if you have any questions about your medical problem. [facility] Emergency Department [phone] [facility] Emergency Department [phone] [facility] Emergency Department [phone] Patient Education Materials Crystal Archersil has been [...] 07/04/2006 Document Revised: 12/09/2016 Document Reviewed: 03/04/2014 Else3PointData Interactive Patient Education ? 2017 [employer] FOLLOW UP CARE Most conditions that [...] x-ray department to pick them up o [facility] # [phone] o [facility] # [phone] o [facility] # [phone] ?? If you had cultures done and [...] quit. o National Network of Tobacco Cessation [id number]-NOW o [employer] o [employer] [phone] o Sai/Manuel Mccray [phone] FINANCIAL INFORMATION ?? [facility] provides financial counseling to anyone who requests our services. ?? Emergency Physicians are independently contracted to provide your care. You will receive a bill for the care provided to you by the Physician and/or the Physician Welding Pantograph Operator. This will be a separate bill from [...] as recommended Patient Signature / or Patient Professor Of Theology Provider Signature Date Date/Time 09/26/2018 18:56 Saint [...] oral tablet loratadine 10 mg oral capsule Canute 5 mg-325 mg oral tablet sodium bicarbonate [...]
--- OUTSIDE RECORDS SUMMARY | 2024-06-04 07:56 | XMS_ITS | Encounter Summary ---
Author Organization [facility] Address [address] [place] [address] Care Team Providers Care Basic Acoustic Analyst Name Role Phone Maria A Soria MAKING LINE WORKER Primary Care Provider [phone] Reason for Visit * Reason Comments Establish Care Encounter Details Date Type Department Care Team (Late st Contact Info) Description 02/15/2023 11:00 AM EDT Office Visit [facility] [address] [place] [phone] Maria A Soria, MAKING LINE WORKER [address] [place] [address] Essential hypertension (Primary Dx); ESRD [...] 6 days/week. Working towards renal transplant with [facility]. To pursue transplant services at [facility] as well but finances are making that [...] was previously followed by a PCP in [facility], but finds it difficult to continue to [...] She is followed by [facility]. 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 No pertinent family history. Vital [...] 6 days/week. Working towards renal transplant with [facility]. To pursue transplant services at [facility] as well but finances are making that [...] AM EDT Performed at: ??01 - [facility] [address], [place], [place] ??[id number] Loader Engineer: Jacob Whaley PhD, Phone: ??[phone] us Maria A Vivek Soria MAKING LINE WORKER LAB BLOOD ORDERABLES Final Result [facility] (AMBULATORY) [address] [place] [address], [facility] [address] [place] [address], [place] [phone] * (ABNORMAL) Comprehensive Metabolic Panel (03/15/2023 10:03 [...] AM EDT Performed at: ??01 - [facility] [place] [address] [place], [place] ??[id number] Loader Engineer: Jacob Whaley PhD, Phone: ??[phone] Maria A Doyle Yang MAKING LINE WORKER LAB BLOOD ORDERABLES Final Result [facility] ([facility]BUL[facility]) [address] [place] [address], [facility] [address] [place] [address], * (ABNORMAL) CBC & Differential (03/15/2023 10:03 [...] 10:03 AM EDT 03/16/2023 Comment:Blood Release to [facility] Narrative [facility] (AMBULATORY) - 03/16/2023 9:07 AM EDT Performed at: ??01 - [facility] [address] ??[id number] Loader Engineer: Jacob Whaley PhD, Phone: ??[phone] Maria A Soria APRN LAB BLOOD ORDERABLES Final Result Performing Organization Address City/[facility]/ZIP Co de Phone Number [facility] (AMBULATORY) [address] [place] [address], [place] [phone] [facility] [address] [place] [address], [place] [phone] * (ABNORMAL) Lipid Panel (03/15/2023 10:03 AM [...] 10:03 AM EDT 03/16/2023 Comment:Blood Release to [facility] Narrative [facility] (AMBUL[facility]) - 03/16/2023 9:07 AM EDT Performed at: ??01 - [facility] [address] ??[id number] Loader Engineer: Jacob Whaley PhD, Phone: ??[phone] Maria A Soria APRN LAB BLOOD ORDERABLES Final Result Performing Organization Address City/[facility]/ZIP Co de Phone Number [facility] (AMBULATORY) [address] [place] [address], [place] [phone] [facility] [address] [place] [address], * (ABNORMAL) Hemoglobin A1c (03/15/2023 10:03 AM EDT) Hemoglobin A1C 5.9(H) 4.8 - 5.6 % [facility] Comment: ? Prediabetes: 5.7 - 6.4 ? Diabetes: >6.4 ? Glycemic control for adults with diabetes: <7.0 Blood Structure of right upper limb / Unknown 03/15/2023 10:03 AM EDT 03/16/2023 Comment:Blood Release to [facility] michell Alberts [facility] (AMBULATORY) - 03/16/2023 9:07 AM EDT Performed at: ??01 - [address] ??[id number] Loader Engineer: Jacob Whaley PhD, Phone: ??[phone] Maria A Soria APRN LAB BLOOD ORDERABLES Final Result [facility] (AMBULATORY) [address] [place] [address], [place] [phone] [facility] [address] [place] [address], [place] [phone] documented in this encounter Visit Diagnoses Diagnosis [...] cervix documented in this encounter Care Teams Basic Acoustic Analyst Relationship Specialty Start Date End Date Maria A Soria, MAKING LINE WORKER [address] [phone] PCP - General Family Medicine 02/15/23 documented as of this encounter
--- OUTSIDE RECORDS SUMMARY | 2024-06-04 07:56 | XMS_ITS | Encounter Summary ---
Author Organization [employer] Address [address] [place] [address] Care Team Providers Care Corporate Ethics Officer Name Role Phone Unavailable Primary Care Provider Unavailabl e Encounter Details Date Type Department Care Team (Late st Contact Info) Description 11/18/2018 Historic Encounter [address] [phone] ProviderJen Historical Social History Tobacco [...] PM EDT) Mucus NONE SEEN NONE, [facility] Ketones, UA NEGATIVE NEGATIVE [facility] Urobilinogen, UA 0.2 0.2 - 1.0 [facility] SQUAMOUS EPITHELIAL 2-4(A) NONE, 0-2 [facility] Color, UA YELLOW YEL, L. YEL [facility] Amorphous Crystals TRACE NONE, TRACE [facility] Specific Sparkman, UA 1.020 1.005 - 1.030 [facility] Nitrite, UA NEGATIVE NEGATIVE [facility] Crystals, Urine NONE SEEN NONE SEEN [facility] Clarity, UA CLEAR CLEAR, HAZY [facility] Urinalysis, Other NONE SEEN /HPF [facility] Blood, UA 2+ NEGATIVE [facility] Leukocytes, UA NEGATIVE NEGATIVE [facility] Bacteria, UA 2+(A) NONE, [facility] Glucose, UA NEGATIVE NEGATIVE [facility] pH, UA 5.5(L) 6.0 - 7.5 [facility] RBC, UA 0-2 NONE, 0-2 [facility] Urine Casts NONE SEEN NONE SEEN [facility] Bilirubin, UA NEGATIVE NEGATIVE [facility] Protein, UA 2+(A) NEGATIVE [facility] WBC, UA 0-5 NONE, 0-5 [facility] 11/18/2018 8:58 PM EDT [facility] Historical Provider URINE ORDERABLES Final Result [facility] [address] [phone] * Rapid Strep A screen (11/18/2018 8:23 PM EDT) Strep A Ag NEGATIVE NEGATIVE [facility] 11/18/2018 8:23 PM EDT Result [facility] Historical Provider MICROBIOLOGY - GENERAL ORDERABLES Final Result [facility] [address] [phone] documented in this encounter Visit Diagnoses Not on filedocumented in this encounter
--- OUTSIDE RECORDS SUMMARY | 2024-06-04 07:56 | XMS_ITS | Encounter Summary ---
Author Organization [employer] Address [address] [place] [address] Care Team Providers Care Labor Crew Supervisor Name Role Phone Unavailable Primary Care Provider Unavailabl e Encounter Details Date Type Department Care Team (Late st Contact Info) Description 11/19/2018 Transcribed Document [facility] Family Medicine [address] [place] [address] ProviderLaury MD [address] [place] [address] Social History Tobacco Use Types Packs/Day [...] Laury ProviderMD - 11/19/2018 1:52 AM CDT [facility] ADDRESS [place], [place] [phone] Name:Crystal Archer Visit Date:11/18/2018 20:06:00 Emergency Department Care Providers: Physician: Clara Elias Phys Asst Physician: Our doctors and staff appreciate your choice of [facility] for your emergency medical care. Read these instructions carefully. Please call us if you have any questions about your medical problem. [facility] Emergency Department [phone] [facility] Emergency Department [phone] [facility] Emergency Department [phone] Patient Education Materials Gianni Crystal Jones has [...] start to feel better. ??? Only take lkpe-coy-jgzxwex or prescription medicines for pain, discomfort, or [...] 01/29/2014 Elsevier Interactive Patient Education ? 2017 [employer] Obstetrics and Gynecology Urinary Tract Infection, Adult Introduction A urinary tract infection (UTI) is an infection of any part of the urinary tract. The urinary tract includes the: ??? Kidneys. ??? Ureters. ??? Bladder. ??? Urethra. These organs make, store, and get rid of pee (urine) in the body. Follow these instructions at home: ??? Take tvcc-dwb-pzzruvd and prescription medicines only as told by [...] x-ray department to pick them up o [facility] # [phone] o [facility] # [phone] o [facility] # [phone] ?? If you had cultures done and [...] quit. o National Network of Tobacco Cessation [id number]-IFED-NOW o [place] [employer] o [place] [employer] [phone] o Sai/Manuel Mccray [phone] FINANCIAL INFORMATION ?? [facility] provides financial counseling to anyone who requests our services. ?? Emergency Physicians are independently contracted to provide your care. You will receive a bill for the care provided to you by the Physician and/or the Physician Heavy Equipment Plumbing Supervisor. This will be a separate bill [...] Patient Education Materials: ENT Otitis Media, Adult, Yuuc-do-Emsg Obstetrics and Gynecology Urinary Tract Infection, Adult, Hdnh-oo-Tmbb Follow-Up Instructions: Follow Up With: Where: When: [...] as recommended Patient Signature / or Patient Clerk Of Scales Provider Signature Date Date/Time 11/18/2018 21:52 Saint [...] instructed by (signature) Date Electronically signed by Rochelle, Christopher Conversion Television Director Sandraner at 10/19/2022 11:23 AM CDT documented in this encounter Plan of Treatment Not on file documented as of this encounter Visit Diagnoses Not on filedocumented in this encounter
--- OUTSIDE RECORDS SUMMARY | 2024-06-04 07:57 | XMS_ITS | Encounter Summary ---
Author Organization [facility] Address [address] [place] [address] Care Team Providers Care Shoe Worker Name Role Phone Jaquan Conley MD Primary Care Provider [phone] Encounter Details Date Type Department Care Team (Late st Contact Info) Description 05/11/2021 12:00 PM EDT Lab [facility] [address] [place] [address] Anemia, unspecified type; Chronic kidney [...] Seen, 0-2 /HPF 05/11/2021 7:05 PM EDT [facility] WBC, UA Too Numerous to Count(A) None Seen, 0-2 /HPF 05/11/2021 7:05 PM EDT [facility] Bacteria, UA 4+(A) None Seen /HPF 05/11/2021 7:05 PM EDT [facility] Squamous Epithelial Cells, UA 3-6(A) None Seen, 0-2 /HPF 05/11/2021 7:05 PM EDT [facility] Hyaline Casts, UA 0-2 None Seen /LPF 05/11/2021 7:05 PM EDT [facility] Methodology Manual Light Microscopy 05/11/2021 7:05 PM EDT [facility] Urine Urine specimen collection, clean catch / Unknown Collection / Unknown 05/11/2021 12:16 PM EDT 05/11/2021 12:22 PM EDT us Mare Kapoor GRINDER OPERATOR SURFACE TOOL URINE ORDERABLES Final Result [facility]
[address] [place] [address], * (ABNORMAL) Urinalysis without microscopic (no culture) - Urine, Clean Catch (05/11/2021 12:16 PM EDT) Color, UA Yellow Yellow, Straw 05/11/2021 6:28 PM EDT [facility] Appearance, UA Cloudy(A) Clear 05/11/2021 6:28 PM EDT [facility] pH, UA 6.0 5.0 - 8.0 05/11/2021 6:28 PM EDT [facility] Specific [place], UA 1.013 1.005 - 1.030 05/11/2021 6:28 PM EDT [facility] Glucose, UA Negative Negative 05/11/2021 6:28 PM EDT [facility] Ketones, UA Negative Negative 05/11/2021 6:28 PM EDT [facility] Bilirubin, UA Negative Negative 05/11/2021 6:28 PM EDT [facility] Blood, UA Moderate (2+)(A) Negative 05/11/2021 6:28 PM EDT [facility] Protein, UA 100 mg/dL (2+)(A) Negative 05/11/2021 6:28 PM EDT [facility] Leuk Esterase, UA Large (3+)(A) Negative 05/11/2021 6:28 PM EDT [facility] Nitrite, UA Positive(A) Negative 05/11/2021 6:28 PM EDT [facility] Urobilinogen, UA 0.2 E.U./dL 0.2 - 1.0 E.U./dL 05/11/2021 6:28 PM EDT [facility] Urine Urine specimen collection, clean catch / Unknown Collection / Unknown 05/11/2021 12:16 PM EDT 05/11/2021 12:22 PM EDT us Mare Kapoor GRINDER OPERATOR SURFACE TOOL URINE ORDERABLES Final Result [facility]
[address] [place] [address], * (ABNORMAL) CBC Auto Differential (05/11/2021 12:16 PM EDT) WBC 6.65 3.40 - 10.80 10*3/mm3 05/11/2021 6:42 PM EDT [facility] RBC 4.02 3.77 - 5.28 10*6/mm3 05/11/2021 6:42 PM EDT [facility] Hemoglobin 12.4 12.0 - 15.9 g/dL 05/11/2021 6:42 PM EDT [facility] Hematocrit 37.6 34.0 - 46.6 % 05/11/2021 6:42 PM EDT [facility] MCV 93.5 79.0 - 97.0 fL 05/11/2021 6:42 PM EDT [facility] MCH 30.8 26.6 - 33.0 pg 05/11/2021 6:42 PM EDT [facility] MCHC 33.0 31.5 - 35.7 g/dL 05/11/2021 6:42 PM EDT [facility] RDW 12.0(L) 12.3 - 15.4 % 05/11/2021 6:42 PM EDT [facility] RDW-SD 41.4 37.0 - 54.0 fl 05/11/2021 6:42 PM EDT [facility] MPV 14.4(H) 6.0 - 12.0 fL 05/11/2021 6:42 PM EDT [facility] Platelets 137(L) 140 - 450 10*3/mm3 05/11/2021 6:42 PM EDT [facility] Neutrophil % 52.8 42.7 - 76.0 % 05/11/2021 6:42 PM EDT [facility] Lymphocyte % 38.2 19.6 - 45.3 % 05/11/2021 6:42 PM EDT [facility] Monocyte % 5.0 5.0 - 12.0 % 05/11/2021 6:42 PM EDT [facility] Eosinophil % 3.3 0.3 - 6.2 % 05/11/2021 6:42 PM EDT [facility] Basophil % 0.5 0.0 - 1.5 % 05/11/2021 6:42 PM EDT [facility] Neutrophils, Absolute 3.52 1.70 - 7.00 10*3/mm3 05/11/2021 6:42 PM EDT [facility] Lymphocytes, Absolute 2.54 0.70 - 3.10 10*3/mm3 05/11/2021 6:42 PM EDT [facility] Monocytes, Absolute 0.33 0.10 - 0.90 10*3/mm3 05/11/2021 6:42 PM EDT [facility] Eosinophils, Absolute 0.22 0.00 - 0.40 10*3/mm3 05/11/2021 6:42 PM EDT [facility] Basophils, Absolute 0.03 0.00 - 0.20 10*3/mm3 05/11/2021 6:42 PM T [facility] Blood Venipuncture / Unknown 05/11/2021 12:16 PM EDT 05/11/2021 12:23 PM EDT us Mare Kapoor GRINDER OPERATOR SURFACE TOOL LAB BLOOD ORDERABLES Final Resu lt [facility]
[address] [place] [address], * Vitamin D 25 Hydroxy (05/11/2021 12:16 PM EDT) 25 Hydroxy, Vitamin D 23.8 ng/ml 05/11/2021 7:17 PM EDT [facility] Blood Venipuncture / Unknown 05/11/2021 12:16 PM EDT 05/11/2021 12:23 PM EDT [facility] - 05/11/2021 7:17 PM EDT Reference Range for Total Vitamin D 25(OH) Deficiency <20.0 ng/mL Insufficiency 21-29 ng/mL Sufficiency 30-100 ng/mL Toxicity >100 ng/ml Results may be falsely increased if patient taking Biotin. Mare Kapoor [facility] LAB BLOOD ORDERABLES Final Resu lt Performing Organization Address City/[facility]/ZIP Co de Phone Number [facility]
[address] [place] [address], * (ABNORMAL) Renal Function Panel (05/11/2021 12:16 PM EDT) [facility] Glucose 98 65 - 99 mg/dL 05/11/2021 7:49 PM EDT [facility] BUN 43(H) 6 - 20 mg/dL 05/11/2021 7:49 PM EDT [facility] Creatinine 3.74(H) 0.57 - 1.00 mg/dL 05/11/2021 7:49 PM EDT [facility] Sodium 144 136 - 145 mmol/L 05/11/2021 7:49 PM EDT [facility] Potassium 5.0 3.5 - 5.2 mmol/L 05/11/2021 7:49 PM EDT [facility] Chloride 111(H) 98 - 107 mmol/L 05/11/2021 7:49 PM EDT [facility] CO2 19.2(L) 22.0 - 29.0 mmol/L 05/11/2021 7:49 PM EDT [facility] Calcium 8.5(L) 8.6 - 10.5 mg/dL 05/11/2021 7:49 PM EDT [facility] Albumin 3.50 3.50 - 5.20 g/dL 05/11/2021 7:49 PM EDT [facility] Phosphorus 5.2(H) 2.5 - 4.5 mg/dL 05/11/2021 7:49 PM EDT [facility] Anion Gap 13.8 5.0 - 15.0 mmol/L 05/11/2021 7:49 PM EDT [facility] BUN/Creatinine Ratio 11.5 7.0 - 25.0 05/11/2021 7:49 PM EDT [facility] eGFR Non Amer 14(L) >60 mL/min/1.7 3 05/11/2021 7:49 PM EDT [facility] Comment:<15 Indicative of ki dney failure. eGFR Amer 05/11/2021 7:49 PM EDT [facility] Comment:<15 Indicative of ki dney failure. Blood Venipuncture / Unknown 05/11/2021 12:16 PM EDT 05/11/2021 12:23 PM EDT Narrative [facility] - 05/11/2021 7:49 PM EDT GFR Normal >60 Chronic Kidney Disease <60 Kidney Failure <15 Mare Kapoor APRN LAB BLOOD ORDERABLES Final Resu lt [facility]
[address] [place] [address], * Protein, Urine, Random - Urine, Clean Catch (05/11/2021 12:16 PM EDT) Total Protein, Urine 116.0 mg/dL 05/11/2021 7:17 PM EDT [facility] Urine Urine specimen collection, clean catch / Unknown Collection / Unknown 05/11/2021 12:16 PM EDT 05/11/2021 12:22 PM EDT [facility] - 05/11/2021 7:17 PM EDT Reference intervals for random urine have not been established. Clinical usage is dependent upon physician's interpretation in combination with other laboratory tests. us Mare Kapoor GRINDER OPERATOR SURFACE TOOL URINE ORDERABLES Final Result Performing Organization Address [facility] Co de Phone Number [facility]
[address] [place] [address], * Creatinine, Urine, Random - Urine, Clean Catch (05/11/2021 12:16 PM EDT) Creatinine, Urine 72.6 mg/dL 05/11/2021 7:17 PM EDT [facility] Urine Urine specimen collection, clean catch / Unknown Collection / Unknown 05/11/2021 12:16 PM EDT 05/11/2021 12:22 PM EDT [facility] - 05/11/2021 7:17 PM EDT Reference intervals for random urine have not been established. Clinical usage is dependent upon physician's interpretation in combination with other laboratory tests. us Mare Kapoor APRN URINE ORDERABLES Final Result Performing Organization Address [facility] de Phone Number [facility]
[address] [place] [address], * (ABNORMAL) PTH, Intact (05/11/2021 12:15 PM EDT) PTH, Intact 286.0(H) 15.0 - 65.0 pg/mL 05/11/2021 7:07 PM EDT [facility] Blood Venipuncture / Unknown 05/11/2021 12:15 PM EDT 05/11/2021 12:23 PM EDT [facility] - 05/11/2021 7:07 PM EDT Results may be falsely decreased if patient taking Biotin. us Mare Kapoor APRN LAB BLOOD ORDERABLES Final Resu lt [facility]
[address] [place] [address], [place] [phone] documented in this encounter Visit Diagnoses Diagnosis Anemia, unspecified type Chronic kidney disease, stage IV (severe) Chronic kidney disease, Stage IV (severe) Vitamin D deficiency documented in this encounter Care Teams Shoe Worker Relationship Specialty Start Date End Date Jaquan Conley MD [address] [place] [address] PCP - General Internal Medicine 04/23/20 02/14/23 documented as of this encounter
--- OUTSIDE RECORDS SUMMARY | 2024-06-04 07:57 | XMS_ITS | Encounter Summary ---
Author Organization [facility] Address [address] [place] [address] Care Team Providers Care Water Filter Cleaner Name Role Phone Jaquan Conley MD Primary Care Provider [phone] Reason for Visit * Reason Comments Vomiting Encounter Details Date Type Department Care Team (Late st Contact Info) Description 09/24/2020 12:09 PM EST - 09/24/2020 3:19 PM EST Emergency [facility] [address] [place] [address] Phill Gama, DO [address] [place] [address] Non-intractable vomiting with nausea, unspecified [...] Care Everywhere. * Nausea and Vomiting Adult [id number]-Phbj (Ivorian) documented in this encounter Medications at [...] 240 tablet 1 06/14/2018 Vitamin D, Ergocalciferol, 09944 units capsule 50,000 Int'l Units. 06/03/2020 [id number]-benazepr [...] Condition Comment Discharge Stable Jaquan Conley MD [address] [place] [address] Where to Get Your Medications These medications were sent to [facility]/pharmacy #[id number] - [place], [place] - [address] [facility] - [phone] - [phone] [address] [facility] [id number] ?? promethazine 12.5 MG tablet Medication List No changes were made to your prescriptions during this visit. Phill Gama DO 10/03/20 [id number] documented in this encounter Plan of Treatment [...] Morphology Normal Normal 09/24/2020 12:49 PM EST [facility] WBC Morphology Normal Normal 09/24/2020 12:49 PM EST [facility] Platelet Estimate Adequate Normal 09/24/2020 12:49 PM EST [facility] Blood Venipuncture / Unknown 09/24/2020 12:10 PM EST 09/24/2020 12:12 PM EST us Phill Gama DO LAB BLOOD ORDERABLES Final Res ult [facility]
[address] [place] [address], * (ABNORMAL) CBC Auto Differential (09/24/2020 12:10 PM EST) WBC 11.87(H) 3.40 - 10.80 10*3/mm3 09/24/2020 12:49 PM EST [facility] RBC 4.15 3.77 - 5.28 10*6/mm3 09/24/2020 12:49 PM EST [facility] Hemoglobin 13.1 12.0 - 15.9 g/dL 09/24/2020 12:49 PM EST [facility] Hematocrit 38.6 34.0 - 46.6 % 09/24/2020 12:49 PM EST [facility] MCV 93.0 79.0 - 97.0 fL 09/24/2020 12:49 PM EST [facility] MCH 31.6 26.6 - 33.0 pg 09/24/2020 12:49 PM [facility] MCHC 33.9 31.5 - 35.7 g/dL 09/24/2020 12:49 PM [facility] RDW 11.9(L) 12.3 - 15.4 % 09/24/2020 12:49 PM [facility] RDW-SD 41.4 37.0 - 54.0 fl 09/24/2020 12:49 PM [facility] MPV 13.1(H) 6.0 - 12.0 fL 09/24/2020 12:49 PM [facility] Platelets 226 140 - 450 10*3/mm3 09/24/2020 12:49 PM [facility] Neutrophil % 57.4 42.7 - 76.0 % 09/24/2020 12:49 PM [facility] Lymphocyte % 33.9 19.6 - 45.3 % 09/24/2020 12:49 PM [facility] Monocyte % 5.6 5.0 - 12.0 % 09/24/2020 12:49 PM [facility] Eosinophil % 2.4 0.3 - 6.2 % 09/24/2020 12:49 PM [facility] Basophil % 0.4 0.0 - 1.5 % 09/24/2020 12:49 PM [facility] Immature Grans % 0.3 0.0 - 0.5 % 09/24/2020 12:49 PM [facility] Neutrophils, Absolute 6.81 1.70 - 7.00 10*3/mm3 09/24/2020 12:49 PM [facility] Lymphocytes, Absolute 4.02(H) 0.70 - 3.10 10*3/mm3 09/24/2020 12:49 PM [facility] Monocytes, Absolute 0.67 0.10 - 0.90 10*3/mm3 09/24/2020 12:49 PM [facility] Eosinophils, Absolute 0.29 0.00 - 0.40 10*3/mm3 09/24/2020 12:49 PM EST [facility] Basophils, Absolute 0.05 0.00 - 0.20 10*3/mm3 09/24/2020 12:49 PM EST [facility] Immature Grans, Absolute 0.03 0.00 - 0.05 10*3/mm3 09/24/2020 12:49 PM EST [facility] nRBC 0.0 0.0 - 0.2 /100 WBC 09/24/2020 12:49 PM EST [facility] Blood Venipuncture / Unknown 09/24/2020 12:10 PM EST 09/24/2020 12:12 PM EST Toppr LAB BLOOD ORDERABLES Final Res ult [facility]
[address] [place] [address], [place] [phone] * Gold Top - SST (09/24/2020 12:10 PM EST) Extra Tube Hold for add-ons. 09/24/2020 1:15 PM EST [facility] Comment:Auto resulted. Blood Venipuncture / Unknown 09/24/2020 12:10 PM EST 09/24/2020 12:12 PM EST Toppr LAB BLOOD ORDER ONLY Final Res ult [facility]
[address] [place] [address], [place] [phone] * Lavender Top (09/24/2020 12:10 PM EST) Extra Tube hold for add-on 09/24/2020 1:15 PM EST [facility] Comment:Auto resulted Blood Venipuncture / Unknown 09/24/2020 12:10 PM EST 09/24/2020 12:12 PM EST us Phill Gama DO LAB BLOOD ORDER ONLY Final Res ult Performing Organization Address City/[facility]/ZIP Co de Phone Number [facility]
[address] [place] [address], [place] [phone] * Green Top (Gel) (09/24/2020 12:10 PM EST) Extra Tube Hold for add-ons. 09/24/2020 1:15 PM EST [facility] Comment:Auto resulted. Blood Venipuncture / Unknown 09/24/2020 12:10 PM EST 09/24/2020 12:12 PM EST Phill Gama DO LAB BLOOD ORDER ONLY Final Res ult Performing Organization Address [facility] de Phone Number [facility]
[address] [place] [address], [place] [phone] * Light Blue Top (09/24/2020 12:10 PM EST) Extra Tube hold for add-on 09/24/2020 1:15 PM EST [facility] Comment:Auto resulted Blood Venipuncture / Unknown 09/24/2020 12:10 PM EST 09/24/2020 12:12 PM EST Phill Gama DO LAB BLOOD ORDER ONLY Final Res ult Performing Organization Address City/[facility]/ZIP Co de Phone Number [facility]
[address] [place] [address], [place] [phone] * Lipase (09/24/2020 12:10 PM EST) Lipase 22 13 - 60 U/L 09/24/2020 12:38 PM EST [facility] Blood Venipuncture / Unknown 09/24/2020 12:10 PM EST 09/24/2020 12:12 PM EST Phill Gama DO LAB BLOOD ORDERABLES Final Res ult [facility]
[address] [place] [id number], * (ABNORMAL) Comprehensive Metabolic Panel (09/24/2020 12:10 PM EST) Glucose 48(LL) 65 - 99 mg/dL 09/24/2020 12:49 PM EST [facility] BUN 45(H) 6 - 20 mg/dL 09/24/2020 12:49 PM [facility] Creatinine 3.71(H) 0.57 - 1.00 mg/dL 09/24/2020 12:49 PM EST [facility] Sodium 139 136 - 145 mmol/L 09/24/2020 12:49 PM EST [facility] Potassium 4.4 3.5 - 5.2 mmol/L 09/24/2020 12:49 PM EST [facility] Chloride 114(H) 98 - 107 mmol/L 09/24/2020 12:49 PM EST [facility] CO2 15.5(L) 22.0 - 29.0 mmol/L 09/24/2020 12:49 PM EST [facility] Calcium 8.5(L) 8.6 - 10.5 mg/dL 09/24/2020 12:49 PM [facility] Total Protein 6.0 6.0 - 8.5 g/dL 09/24/2020 12:49 PM EST [facility] Albumin 3.70 3.50 - 5.20 g/dL 09/24/2020 12:49 PM EST [facility] ALT (SGPT) 7 1 - 33 U/L 09/24/2020 12:49 PM EST [facility] AST (SGOT) 8 1 - 32 U/L 09/24/2020 12:49 PM EST [facility] Alkaline Phosphatase 112 39 - 117 U/L 09/24/2020 12:49 PM [facility] Total Bilirubin 0.2 0.0 - 1.2 mg/dL 09/24/2020 12:49 PM EST [facility] eGFR Non Amer 14(L) >60 mL/min/1.7 3 09/24/2020 12:49 PM EST [facility] Comment:<15 Indicative of ki dney failure. eGFR Amer 09/24/2020 12:49 PM EST [facility] Comment:<15 Indicative of ki dney failure. Globulin 2.3 gm/dL 09/24/2020 12:49 PM EST [facility] A/G Ratio 1.6 g/dL 09/24/2020 12:49 PM EST [facility] BUN/Creatinine Ratio 12.1 7.0 - 25.0 09/24/2020 12:49 PM EST [facility] Anion Gap 9.5 5.0 - 15.0 mmol/L 09/24/2020 12:49 PM [facility] Blood Venipuncture / Unknown 09/24/2020 12:10 PM EST 09/24/2020 12:12 PM EST Narrative [facility] - 09/24/2020 12:49 PM EST GFR Normal >60 Chronic Kidney Disease <60 Kidney Failure <15 Phill Gama DO LAB BLOOD ORDERABLES Final Res ult [facility]
[address] [place] [address], documented in this encounter Visit Diagnoses Diagnosis [...] [id number] documented in this encounter Care Teams Water Filter Cleaner Relationship Specialty Start Date End Date Jaquan Conley MD [address] [place] [address] PCP - General Internal Medicine 04/23/20 02/14/23 documented as of this encounter
--- OUTSIDE RECORDS SUMMARY | 2024-06-04 07:57 | XMS_ITS | Encounter Summary ---
Author Organization [facility] Address [address] [place] [address] Care Team Providers Care Associate Theatre Professor Name Role Phone Jaquan Conley MD Primary Care Provider [phone] [phone] Encounter Details Date Type Department Care Team (Late st Contact Info) Description 06/18/2021 11:45 AM EST Lab [facility] [address] [place] [address] Anemia, unspecified type; CKD stage [...] - 10.80 10*3/mm3 06/18/2021 6:07 PM EST [facility] RBC 3.87 3.77 - 5.28 10*6/mm3 06/18/2021 6:07 PM EST [facility] Hemoglobin 12.3 12.0 - 15.9 g/dL 06/18/2021 6:07 PM EST [facility] Hematocrit 36.2 34.0 - 46.6 % 06/18/2021 6:07 PM [facility] MCV 93.5 79.0 - 97.0 fL 06/18/2021 6:07 PM [facility] MCH 31.8 26.6 - 33.0 pg 06/18/2021 6:07 PM [facility] MCHC 34.0 31.5 - 35.7 g/dL 06/18/2021 6:07 PM [facility] RDW 12.0(L) 12.3 - 15.4 % 06/18/2021 6:07 PM [facility] RDW-SD 41.0 37.0 - 54.0 fl 06/18/2021 6:07 PM [facility] MPV 13.5(H) 6.0 - 12.0 fL 06/18/2021 6:07 PM [facility] Platelets 186 140 - 450 10*3/mm3 06/18/2021 6:07 PM [facility] Neutrophil % 51.0 42.7 - 76.0 % 06/18/2021 6:07 PM [facility] Lymphocyte % 38.3 19.6 - 45.3 % 06/18/2021 6:07 PM [facility] Monocyte % 5.3 5.0 - 12.0 % 06/18/2021 6:07 PM [facility] Eosinophil % 4.5 0.3 - 6.2 % 06/18/2021 6:07 PM [facility] Basophil % 0.7 0.0 - 1.5 % 06/18/2021 6:07 PM [facility] Neutrophils, Absolute 2.98 1.70 - 7.00 10*3/mm3 06/18/2021 6:07 PM [facility] Lymphocytes, Absolute 2.23 0.70 - 3.10 10*3/mm3 06/18/2021 6:07 PM [facility] Monocytes, Absolute 0.31 0.10 - 0.90 10*3/mm3 06/18/2021 6:07 PM [facility] Eosinophils, Absolute 0.26 0.00 - 0.40 10*3/mm3 06/18/2021 6:07 PM EST [facility] Basophils, Absolute 0.04 0.00 - 0.20 10*3/mm3 06/18/2021 6:07 PM EST [facility] Blood Venipuncture / Unknown 06/18/2021 11:50 AM EST 06/18/2021 12:26 PM EST Adina Sands MD LAB BLOOD ORDERABLES Amy l Result [facility]
[address] [place] [address], * (ABNORMAL) Urinalysis, Microscopic Only - Urine, Clean Catch (06/18/2021 11:50 AM EST) RBC, UA 0-2 None Seen, 0-2 /HPF 06/18/2021 7:18 PM [facility] WBC, UA 3-5(A) None Seen, 0-2 /HPF 06/18/2021 7:18 PM [facility] Bacteria, UA 2+(A) None Seen /HPF 06/18/2021 7:18 PM [facility] Squamous Epithelial Cells, UA 7-12(A) None Seen, 0-2 /HPF 06/18/2021 7:18 PM [facility] Hyaline Casts, UA 0-2 None Seen /LPF 06/18/2021 7:18 PM [facility] Methodology Manual Light Microscopy 06/18/2021 7:18 PM [facility] Urine Urine specimen obtained by clean catch procedure / Unknown Collection / Unknown 06/18/2021 11:50 AM EST 06/18/2021 12:25 PM EST us Adina Sands MD URINE ORDERABLES Final Re sult [facility]
[address] [place] [address], * (ABNORMAL) Urinalysis without microscopic (no culture) - Urine, Clean Catch (06/18/2021 11:50 AM EST) Color, UA Yellow Yellow, Straw 06/18/2021 6:38 PM [facility] Appearance, UA Clear Clear 06/18/2021 6:38 PM [facility] pH, UA 5.5 5.0 - 8.0 06/18/2021 6:38 PM [facility] Specific [place], UA 1.012 1.005 - 1.030 06/18/2021 6:38 PM [facility] Glucose, UA Negative Negative 06/18/2021 6:38 PM [facility] Ketones, UA Negative Negative 06/18/2021 6:38 PM [facility] Bilirubin, UA Negative Negative 06/18/2021 6:38 PM [facility] Blood, UA Moderate (2+)(A) Negative 06/18/2021 6:38 PM [facility] Protein, UA 100 mg/dL (2+)(A) Negative 06/18/2021 6:38 PM [facility] Leuk Esterase, UA Negative Negative 06/18/2021 6:38 PM [facility] Nitrite, UA Negative Negative 06/18/2021 6:38 PM [facility] Urobilinogen, UA 0.2 E.U./dL 0.2 - 1.0 E.U./dL 06/18/2021 6:38 PM [facility] Urine Urine specimen obtained by clean catch procedure / Unknown Collection / Unknown 06/18/2021 11:50 AM EST 06/18/2021 12:25 PM EST Adina Sands MD URINE ORDERABLES Final Re sult [facility]
[address] [place] [address], * (ABNORMAL) Ferritin (06/18/2021 11:50 AM EST) [facility] Ferritin 231.00(H) 13.00 - 150.00 ng/mL 06/18/2021 6:35 PM [facility] Blood Venipuncture / Unknown 06/18/2021 11:50 AM EST 06/18/2021 12:26 PM EST [facility] - 06/18/2021 6:35 PM EST Results may be falsely decreased if patient taking Biotin. Adina Bridgesiq LAB BLOOD ORDERABLES Amy foreman Result [facility]
[address] [place] [address], * (ABNORMAL) Renal Function Panel (06/18/2021 11:50 AM EST) [facility] Glucose 197(H) 65 - 99 mg/dL 06/18/2021 7:06 PM [facility] BUN 41(H) 6 - 20 mg/dL 06/18/2021 7:06 PM [facility] Creatinine 3.69(H) 0.57 - 1.00 mg/dL 06/18/2021 7:06 PM [facility] Sodium 139 136 - 145 mmol/L 06/18/2021 7:06 PM [facility] Potassium 5.4(H) 3.5 - 5.2 mmol/L 06/18/2021 7:06 PM [facility] Chloride 107 98 - 107 mmol/L 06/18/2021 7:06 PM [facility] CO2 18.7(L) 22.0 - 29.0 mmol/L 06/18/2021 7:06 PM [facility] Calcium 8.5(L) 8.6 - 10.5 mg/dL 06/18/2021 7:06 PM [facility] Albumin 4.10 3.50 - 5.20 g/dL 06/18/2021 7:06 PM [facility] Phosphorus 5.0(H) 2.5 - 4.5 mg/dL 06/18/2021 7:06 PM [facility] Anion Gap 13.3 5.0 - 15.0 mmol/L 06/18/2021 7:06 PM [facility] BUN/Creatinine Ratio 11.1 7.0 - 25.0 06/18/2021 7:06 PM [facility] eGFR Non Amer 14(L) >60 mL/min/1.7 3 06/18/2021 7:06 PM [facility] Comment:<15 Indicative of ki dney failure. eGFR Amer 06/18/2021 7:06 PM [facility] Comment:<15 Indicative of ki dney failure. Blood Venipuncture / Unknown 06/18/2021 11:50 AM EST 06/18/2021 12:26 PM EST Narrative [facility] - 06/18/2021 7:06 PM EST GFR Normal >60 Chronic Kidney Disease <60 Kidney Failure <15 Adina Sands MD LAB BLOOD ORDERABLES Amy l Result [facility]
[address] [place] [address], * Iron Profile (06/18/2021 11:50 AM EST) Iron 90 37 - 145 mcg/dL 06/18/2021 7:06 PM EST [facility] Iron Saturation (TSAT) 29 20 - 50 % 06/18/2021 7:06 PM [facility] Transferrin 208 200 - 360 mg/dL 06/18/2021 7:06 PM [facility] TIBC 310 298 - 536 mcg/dL 06/18/2021 7:06 PM EST [facility] Blood Venipuncture / Unknown 06/18/2021 11:50 AM EST 06/18/2021 12:26 PM EST Adina Sands MD LAB BLOOD ORDERABLES Amy foreman Result [facility]
[address] [place] [address], documented in this encounter Visit Diagnoses Diagnosis Anemia, unspecified type CKD stage G5/A3, GFR <15 and albumin creatinine ratio >300 mg/g documented in this encounter Care Teams Associate Theatre Professor Relationship Specialty Start Date End Date Jaquan Conley MD [address] [place] [address] PCP - General Internal Medicine 04/23/20 02/14/23 documented as of this encounter
--- OUTSIDE RECORDS SUMMARY | 2024-06-04 07:57 | XMS_ITS | Encounter Summary ---
Author Organization [facility] Address [address] [id number] Care Team Providers Care Radiographer Mammographer Name Role Phone Jaquan Conley MD Primary Care Provider [phone] [phone] Reason for Referral * (Routine) - Closed Specialty Diagnoses / Procedures Referred By Contac t Referred To Contact Radiology Diagnoses Tobacco use disorder Procedures XR Chest PA & Lateral Adina Sands MD [address] [facility] [address] [place] [address] Phone: tel: fax: Referral ID Status Reason Start Date Expiration Date Visits Re quested Visits Authorized [id number] Closed 02/09/2021 02/09/2022 1 1 Reason for Visit * (Routine) - Closed Specialty Diagnoses / Procedures Referred By Contac t Referred To Contact Radiology Diagnoses Tobacco use disorder Procedures XR Chest PA & Lateral Adina Sands MD [address] [facility] [address] [place] [address] Phone: tel: fax: Referral ID Status Reason Start Date Expiration Date Visits Re quested Visits Authorized [id number] Closed 02/09/2021 02/09/2022 1 1 Encounter Details Date Type Department Care Team (Late st Contact Info) Description 02/09/2021 2:41 PM EDT - 02/09/2021 11:59 PM EDT Hospital Encounter [facility] X[facility] [address] [place] [id number] Adina Sands MD [address] [facility] [address] [place] [address] Tobacco use disorder Discharge Disposition: [...] 240 tablet 1 06/14/2018 Vitamin D, Ergocalciferol, 95277 units capsule 50,000 Int'l Units. 06/03/2020 amLODIPine-benazepr [...] disorder documented in this encounter Care Teams Radiographer Mammographer Relationship Specialty Start Date End Date Jaquan Conley MD [address] [place] [address] PCP - General Internal Medicine 04/23/20 02/14/23 documented as of this encounter
--- OUTSIDE RECORDS SUMMARY | 2024-06-04 07:57 | XMS_ITS | Encounter Summary ---
[facility] Organization [facility] Address [address] [place] [address] Care Team Providers Care National Van Truck Driver Name Role Phone Jaquan Conley MD Primary Care Provider [phone] [phone] Encounter Details Date Type Department Care Team (Late st Contact Info) Description 12/02/2020 10:20 AM EDT Lab [facility] [address] [place] [address] Chronic kidney disease, stage IV [...] No growth KIRA 12/03/2020 4:17 PM EDT [facility] Urine Urine specimen collection, clean catch / Unknown Collection / Unknown 12/02/2020 10:18 AM EDT 12/02/2020 11:18 AM EDT us Mare Kapoor STAFF PHYSICAL THERAPIST MICROBIOLOGY - GENERAL ORDERABL ES Final Result [facility]
[address] [place] [address], documented in this encounter Visit Diagnoses Diagnosis Chronic kidney disease, stage IV (severe) Chronic kidney disease, Stage IV (severe) documented in this encounter Care Teams National Van Truck Driver Relationship Specialty Start Date End Date Jaquan Conley MD [address] [place] [address] PCP - General Internal Medicine 04/23/20 02/14/23 documented as of this encounter
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
--- OUTSIDE RECORDS SUMMARY | 2024-06-04 07:57 | XMS_ITS | Encounter Summary ---
Author Organization [facility] Address [address] [place] [address] Care Team Providers Care Shirt Sorter Name Role Phone Jaquan Conley MD Primary Care Provider [phone] [phone] Encounter Details Date Type Department Care Team (Late st Contact Info) Description 09/16/2020 12:40 PM EST Lab [facility] [address] [place] [address] Chronic kidney disease, stage V; [...] None Seen, 0-2 /HPF 09/16/2020 11:12 PM [facility] WBC, UA 6-12(A) None Seen, 0-2 /HPF 09/16/2020 11:12 PM [facility] Bacteria, UA 4+(A) None Seen /HPF 09/16/2020 11:12 PM [facility] Squamous Epithelial Cells, UA 13-20(A) None Seen, 0-2 /HPF 09/16/2020 11:12 PM [facility] Hyaline Casts, UA 3-6 None Seen /LPF 09/16/2020 11:12 PM [facility] Methodology Automated Microscopy 09/16/2020 11:12 PM [facility] Urine Urine specimen collection, clean catch / Unknown Collection / Unknown 09/16/2020 1:10 PM EST 09/16/2020 4:26 PM EST Adina Sands MD URINE ORDERABLES Final Re sult [facility]
[address] [place] [address], * (ABNORMAL) Urinalysis without microscopic (no culture) - Urine, Clean Catch (09/16/2020 1:10 PM EST) Color, UA Other(A) Yellow, Straw 09/16/2020 11:20 PM [facility] Appearance, UA Cloudy(A) Clear 09/16/2020 11:20 PM [facility] pH, UA 6.0 5.0 - 8.0 09/16/2020 11:20 PM [facility] Specific [place], UA 1.013 1.005 - 1.030 09/16/2020 11:20 PM [facility] Glucose, UA Negative Negative 09/16/2020 11:20 PM [facility] Ketones, UA Negative Negative 09/16/2020 11:20 PM [facility] Bilirubin, UA Negative Negative 09/16/2020 11:20 PM [facility] Blood, UA Large (3+)(A) Negative 09/16/2020 11:20 PM [facility] Protein, UA >=300 mg/dL (3+)(A) Negative 09/16/2020 11:20 PM [facility] Leuk Esterase, UA Negative Negative 09/16/2020 11:20 PM [facility] Nitrite, UA Negative Negative 09/16/2020 11:20 PM [facility] Urobilinogen, UA 0.2 E.U./dL 0.2 - 1.0 E.U./dL 09/16/2020 11:20 PM [facility] Urine Urine specimen collection, clean catch / Unknown Collection / Unknown 09/16/2020 1:10 PM EST 09/16/2020 4:26 PM EST Adina Sands MD URINE ORDERABLES Final Re sult [facility]
[address] [place] [address], * (ABNORMAL) CBC Auto Differential (09/16/2020 1:10 PM EST) WBC 8.49 3.40 - 10.80 10*3/mm3 09/16/2020 6:15 PM [facility] RBC 4.28 3.77 - 5.28 10*6/mm3 09/16/2020 6:15 PM [facility] Hemoglobin 13.5 12.0 - 15.9 g/dL 09/16/2020 6:15 PM [facility] Hematocrit 40.3 34.0 - 46.6 % 09/16/2020 6:15 PM [facility] MCV 94.2 79.0 - 97.0 fL 09/16/2020 6:15 PM [facility] MCH 31.5 26.6 - 33.0 pg 09/16/2020 6:15 PM [facility] MCHC 33.5 31.5 - 35.7 g/dL 09/16/2020 6:15 PM [facility] RDW 12.0(L) 12.3 - 15.4 % 09/16/2020 6:15 PM [facility] RDW-SD 41.5 37.0 - 54.0 fl 09/16/2020 6:15 PM [facility] MPV 13.9(H) 6.0 - 12.0 fL 09/16/2020 6:15 PM [facility] Platelets 214 140 - 450 10*3/mm3 09/16/2020 6:15 PM EST [facility] Neutrophil % 62.6 42.7 - 76.0 % 09/16/2020 6:15 PM EST [facility] Lymphocyte % 28.4 19.6 - 45.3 % 09/16/2020 6:15 PM EST [facility] Monocyte % 4.8(L) 5.0 - 12.0 % 09/16/2020 6:15 PM EST [facility] Eosinophil % 3.3 0.3 - 6.2 % 09/16/2020 6:15 PM EST [facility] Basophil % 0.5 0.0 - 1.5 % 09/16/2020 6:15 PM EST [facility] Neutrophils, Absolute 5.32 1.70 - 7.00 10*3/mm3 09/16/2020 6:15 PM [facility] Lymphocytes, Absolute 2.41 0.70 - 3.10 10*3/mm3 09/16/2020 6:15 PM [facility] Monocytes, Absolute 0.41 0.10 - 0.90 10*3/mm3 09/16/2020 6:15 PM EST [facility] Eosinophils, Absolute 0.28 0.00 - 0.40 10*3/mm3 09/16/2020 6:15 PM [facility] Basophils, Absolute 0.04 0.00 - 0.20 10*3/mm3 09/16/2020 6:15 PM [facility] Blood Venipuncture / Unknown 09/16/2020 1:10 PM EST 09/16/2020 1:54 PM EST us Adina Sands MD LAB BLOOD ORDERABLES Amy foreman Result [facility]
[address] [place] [address], * Vitamin D 25 Hydroxy (09/16/2020 1:10 PM EST) 25 Hydroxy, Vitamin D 22.9 ng/ml 09/16/2020 7:33 PM [facility] Blood Venipuncture / Unknown 09/16/2020 1:10 PM EST 09/16/2020 1:54 PM EST [facility] - 09/16/2020 7:33 PM EST Reference Range for Total Vitamin D 25(OH) Deficiency <20.0 ng/mL Insufficiency 21-29 ng/mL Sufficiency 30-100 ng/mL Toxicity >100 ng/ml Results may be falsely increased if patient taking Biotin. Adina Bridgesiq LAB BLOOD ORDERABLES Amy foreman Result [facility]
[address] [place] [address], * (ABNORMAL) Renal Function Panel (09/16/2020 1:10 PM EST) Glucose 107(H) 65 - 99 mg/dL 09/16/2020 6:39 PM [facility] BUN 34(H) 6 - 20 mg/dL 09/16/2020 6:39 PM [facility] Creatinine 3.08(H) 0.57 - 1.00 mg/dL 09/16/2020 6:39 PM [facility] Sodium 139 136 - 145 mmol/L 09/16/2020 6:39 PM [facility] Potassium 4.1 3.5 - 5.2 mmol/L 09/16/2020 6:39 PM [facility] Chloride 108(H) 98 - 107 mmol/L 09/16/2020 6:39 PM [facility] CO2 19.0(L) 22.0 - 29.0 mmol/L 09/16/2020 6:39 PM [facility] Calcium 8.7 8.6 - 10.5 mg/dL 09/16/2020 6:39 PM [facility] Albumin 4.00 3.50 - 5.20 g/dL 09/16/2020 6:39 PM EST [facility] Phosphorus 4.0 2.5 - 4.5 mg/dL 09/16/2020 6:39 PM EST [facility] Anion Gap 12.0 5.0 - 15.0 mmol/L 09/16/2020 6:39 PM EST [facility] BUN/Creatinine Ratio 11.0 7.0 - 25.0 09/16/2020 6:39 PM EST [facility] eGFR Non Amer 18(L) >60 mL/min/1.7 3 09/16/2020 6:39 PM EST [facility] Blood Venipuncture / Unknown 09/16/2020 1:10 PM EST 09/16/2020 1:53 PM EST [facility] - 09/16/2020 6:39 PM EST GFR Normal >60 Chronic Kidney Disease <60 Kidney Failure <15 Adina Sands MD LAB BLOOD ORDERABLES Amy l Result Performing Organization Address [facility]/ZIP Co de Phone Number [facility]
[address] [place] [address], * Protein, Urine, Random - Urine, Clean Catch (09/16/2020 1:10 PM EST) Total Protein, Urine 225.0 mg/dL 09/16/2020 11:47 PM EST [facility] Urine Urine specimen collection, clean catch / Unknown Collection / Unknown 09/16/2020 1:10 PM EST 09/16/2020 4:26 PM EST [facility] - 09/16/2020 11:47 PM EST Reference intervals for random urine have not been established. Clinical usage is dependent upon physician's interpretation in combination with other laboratory tests. Adina Sands MD URINE ORDERABLES Final Re sult Performing Organization Address [facility]/ZIP Co de Phone Number [facility]
[address] [place] [address], * (ABNORMAL) PTH, Intact (09/16/2020 1:10 PM EST) PTH, Intact 255.0(H) 15.0 - 65.0 pg/mL 09/16/2020 7:07 PM EST [facility] Blood Venipuncture / Unknown 09/16/2020 1:10 PM EST 09/16/2020 1:55 PM EST [facility] - 09/16/2020 7:07 PM EST Results may be falsely decreased if patient taking Biotin. Adina Sands MD LAB BLOOD ORDERABLES Amy l Result Performing Organization Address City/[facility]/ZIP Co de Phone Number [facility]
[address] [place] [address], * Creatinine, Urine, Random - Urine, Clean Catch (09/16/2020 1:10 PM EST) Creatinine, Urine 75.8 mg/dL 09/16/2020 11:34 PM EST [facility] Urine Urine specimen collection, clean catch / Unknown Collection / Unknown 09/16/2020 1:10 PM EST 09/16/2020 4:26 PM EST [facility] - 09/16/2020 11:34 PM EST Reference intervals for random urine have not been established. Clinical usage is dependent upon physician's interpretation in combination with other laboratory tests. Adina Sands MD URINE ORDERABLES Final Re sult [facility]
[address] [place] [address], documented in this encounter Visit Diagnoses Diagnosis Chronic kidney disease, stage V Chronic kidney disease, Stage V Vitamin D deficiency documented in this encounter Care Teams Shirt Sorter Relationship Specialty Start Date End Date Jaquan Conley MD [address] [place] [id number] PCP - General Internal Medicine 04/23/20 02/14/23 documented as of this encounter
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
--- OUTSIDE RECORDS SUMMARY | 2024-06-04 07:57 | XMS_ITS | Encounter Summary ---
Author Organization [facility] Address [address] [place] [address] Care Team Providers Care Senior Asp Net Developer Name Role Phone Jaquan Conley MD Primary Care Provider [phone] Encounter Details Date Type Department Care Team (Late st Contact Info) Description 11/20/2020 3:00 PM EDT Lab [facility] [address] [place] [address] Anemia, unspecified type; CKD stage [...] Seen, 0-2 /HPF 11/20/2020 11:27 PM EDT [facility] WBC, UA 3-5(A) None Seen, 0-2 /HPF 11/20/2020 11:27 PM EDT [facility] Bacteria, UA 4+(A) None Seen /HPF 11/20/2020 11:27 PM EDT [facility] Squamous Epithelial Cells, UA 7-12(A) None Seen, 0-2 /HPF 11/20/2020 11:27 PM EDT [facility] Hyaline Casts, UA 3-6 None Seen /LPF 11/20/2020 11:27 PM EDT [facility] Methodology Automated Microscopy 11/20/2020 11:27 PM T [facility] Urine Urine specimen collection, clean catch / Unknown Collection / Unknown 11/20/2020 3:06 PM EDT 11/20/2020 3:54 PM EDT John Garcia MD URINE ORDERABLES Final Resul t [facility]
[address] [place] [address], * (ABNORMAL) Urinalysis without microscopic (no culture) - Urine, Clean Catch (11/20/2020 3:06 PM EDT) Color, UA Yellow Yellow, Straw 11/20/2020 11:30 PM EDT [facility] Appearance, UA Clear Clear 11/20/2020 11:30 PM EDT [facility] pH, UA 6.0 5.0 - 8.0 11/20/2020 11:30 PM EDT [facility] Specific [place], UA 1.012 1.005 - 1.030 11/20/2020 11:30 PM EDT [facility] Glucose, UA Negative Negative 11/20/2020 11:30 PM EDT [facility] Ketones, UA Negative Negative 11/20/2020 11:30 PM EDT [facility] Bilirubin, UA Negative Negative 11/20/2020 11:30 PM EDT [facility] Blood, UA Small (1+)(A) Negative 11/20/2020 11:30 PM EDT [facility] Protein, UA >=300 mg/dL (3+)(A) Negative 11/20/2020 11:30 PM EDT [facility] Leuk Esterase, UA Negative Negative 11/20/2020 11:30 PM EDT [facility] Nitrite, UA Negative Negative 11/20/2020 11:30 PM EDT [facility] Urobilinogen, UA 0.2 E.U./dL 0.2 - 1.0 E.U./dL 11/20/2020 11:30 PM EDT [facility] Urine Urine specimen collection, clean catch / Unknown Collection / Unknown 11/20/2020 3:06 PM EDT 11/20/2020 3:54 PM EDT John Garcia MD URINE ORDERABLES Final Resul t [facility]
[address] [place] [address], * (ABNORMAL) CBC Auto Differential (11/20/2020 3:06 PM EDT) WBC 7.86 3.40 - 10.80 10*3/mm3 11/21/2020 12:27 AM [facility] RBC 4.62 3.77 - 5.28 10*6/mm3 11/21/2020 12:27 AM [facility] Hemoglobin 14.2 12.0 - 15.9 g/dL 11/21/2020 12:27 AM [facility] Hematocrit 44.5 34.0 - 46.6 % 11/21/2020 12:27 AM [facility] MCV 96.3 79.0 - 97.0 fL 11/21/2020 12:27 AM [facility] MCH 30.7 26.6 - 33.0 pg 11/21/2020 12:27 AM [facility] MCHC 31.9 31.5 - 35.7 g/dL 11/21/2020 12:27 AM [facility] RDW 11.8(L) 12.3 - 15.4 % 11/21/2020 12:27 AM [facility] RDW-SD 41.9 37.0 - 54.0 fl 11/21/2020 12:27 AM [facility] MPV 13.7(H) 6.0 - 12.0 fL 11/21/2020 12:27 AM [facility] Platelets 215 140 - 450 10*3/mm3 11/21/2020 12:27 AM EDT [facility] Neutrophil % 51.1 42.7 - 76.0 % 11/21/2020 12:27 AM EDT [facility] Lymphocyte % 39.1 19.6 - 45.3 % [facility] Monocyte % 4.3(L) 5.0 - 12.0 % 11/21/2020 12:27 AM EDT [facility] Eosinophil % 4.8 0.3 - 6.2 % 11/21/2020 12:27 AM T [facility] Basophil % 0.4 0.0 - 1.5 % 11/21[facility]2020 [facility] Neutrophils, Absolute 4.02 1.70 - 7.00 10*3/mm3 11/21/2020 [facility] Lymphocytes, Absolute 3.07 0.70 - 3.10 10*3/mm3 11/21/2020 12:27 AM EDT [facility] Monocytes, Absolute 0.34 0.10 - 0.90 10*3/mm3 11/21/2020 [facility] Eosinophils, Absolute 0.38 0.00 - 0.40 10*3/mm3 11/21/2020 12:27 AM [facility] Basophils, Absolute 0.03 0.00 - 0.20 10*3/mm3 11/21/2020 12:27 AM [facility] Blood Venipuncture / Unknown 11/20/2020 3:06 PM EDT 11/20/2020 3:54 PM EDT John Garcia MD LAB BLOOD ORDERABLES Final R esult [facility]
[address] [place] [address], * (ABNORMAL) Renal Function Panel (11/20/2020 3:06 PM EDT) [facility] Glucose 211(H) 65 - 99 mg/dL 11/21/2020 12:13 AM [facility] BUN 30(H) 6 - 20 mg/dL 11/21/2020 12:13 AM [facility] Creatinine 2.86(H) 0.57 - 1.00 mg/dL 11/21/2020 12:13 AM [facility] Sodium 137 136 - 145 mmol/L 11/21/2020 12:13 AM [facility] Potassium 4.9 3.5 - 5.2 mmol/L 11/21/2020 12:13 AM [facility] Chloride 108(H) 98 - 107 mmol/L 11/21/2020 12:13 AM [facility] CO2 18.7(L) 22.0 - 29.0 mmol/L 11/21/2020 12:13 AM [facility] Calcium 9.2 8.6 - 10.5 mg/dL 11/21/2020 12:13 AM [facility] Albumin 4.10 3.50 - 5.20 g/dL 11/21/2020 12:13 AM [facility] Phosphorus 3.6 2.5 - 4.5 mg/dL 11/21/2020 12:13 AM [facility] Anion Gap 10.3 5.0 - 15.0 mmol/L 11/21/2020 12:13 AM [facility] BUN/Creatinine Ratio 10.5 7.0 - 25.0 11/21/2020 12:13 AM [facility] eGFR Non Amer 19(L) >60 mL/min/1.7 3 11/21/2020 12:13 AM [facility] Blood Venipuncture / Unknown 11/20/2020 3:06 PM EDT 11/20/2020 3:54 PM T [facility] - 11/21/2020 12:13 AM EDT GFR Normal >60 Chronic Kidney Disease <60 Kidney Failure <15 John Garcia MD LAB BLOOD ORDERABLES Final R esult [facility]
[address] [place] [address], [place] [phone] documented in this encounter Visit Diagnoses Diagnosis Anemia, unspecified type CKD stage G5/A3, GFR <15 and albumin creatinine ratio >300 mg/g documented in this encounter Care Teams Senior Asp Net Developer Relationship Specialty Start Date End Date Jaquan Conley MD [address] [place] [address] PCP - General Internal Medicine 04/23/20 02/14/23 documented as of this encounter
--- OUTSIDE RECORDS SUMMARY | 2024-06-04 07:57 | XMS_ITS | Encounter Summary ---
Author Organization [facility] Address [address] [place] [address] Care Team Providers Care Insurance Adjuster Name Role Phone Jaquan Conley MD Primary Care Provider [phone] Reason for Visit * Reason Comments Shoulder Pain Encounter Details Date Type Department Care Team (Late st Contact Info) Description 08/16/2020 1:37 PM EST - 08/16/2020 2:33 PM EST Emergency [facility] EMERGENCY DEPARTMENT [address] [place] [id number] Jaquan Arenas, DO Strain of latissimus [...] sent through Care Everywhere. * Muscle Strain ([place]izean) documented in this encounter Medications at [...] 240 tablet 1 06/14/2018 Vitamin D, Ergocalciferol, 96894 units capsule 50,000 Int'l Units. 06/03/2020 [id number] [...] of the pain. History provided by: Patient large sheetfed press operator used: No Review of Systems Musculoskeletal: Right [...] For this patient encounter, I reviewed the ANIMAL SHELTER CLERK or PA documentation, treatment plan, and medical decision making. Jaquan Arenas DO 08/16/2020 14:17 EST documented in this encounter Plan of Treatment Not on file documented as of this encounter Visit Diagnoses Diagnosis Strain of latissimus dorsi muscle, initial encounter- Primary documented in this encounter Care Teams Insurance Adjuster Relationship Specialty Start Date End Date Jaquan Conley MD [address] [place], [place] [id number] PCP - General Internal Medicine 04/23/20 02/14/23 documented as of this encounter
--- OUTSIDE RECORDS SUMMARY | 2024-06-04 07:57 | XMS_ITS | Encounter Summary ---
Author Organization [facility] Address [address] [place] [address] Care Team Providers Care Patron Attendant Name Role Phone Jaquan Conley MD Primary Care Provider [phone] Encounter Details Date Type Department Care Team (Late st Contact Info) Description 07/14/2020 2:25 PM EST Lab [facility] [address] [place] [address] Chronic kidney disease, stage V; [...] Seen, 0-2 /HPF 07/14/2020 11:30 PM EST [facility] WBC, UA 13-20(A) None Seen, 0-2 /HPF 07/14/2020 11:30 PM EST [facility] Bacteria, UA 2+(A) None Seen /HPF 07/14/2020 11:30 PM EST [facility] Squamous Epithelial Cells, UA 0-2 None Seen, 0-2 /HPF 07/14/2020 11:30 PM EST [facility] Hyaline Casts, UA 0-2 None Seen /LPF 07/14/2020 11:30 PM EST [facility] Methodology Automated Microscopy 07/14/2020 11:30 PM EST [facility] Urine Urine specimen collection, clean catch / Unknown Collection / Unknown 07/14/2020 2:52 PM EST 07/14/2020 4:47 PM EST Adina Sands MD URINE ORDERABLES Final Re sult Performing Organization Address [facility] Co de Phone Number [facility]
[address] [place] [address], * (ABNORMAL) Urinalysis without microscopic (no culture) - Urine, Clean Catch (07/14/2020 2:52 PM EST) Color, UA Yellow Yellow, Straw 07/14/2020 11:00 PM [facility] Appearance, UA Clear Clear 07/14/2020 11:00 PM [facility] pH, UA 6.0 5.0 - 8.0 07/14/2020 11:00 PM [facility] Specific [place], UA 1.013 1.005 - 1.030 07/14/2020 11:00 PM [facility] Glucose, UA Negative Negative 07/14/2020 11:00 PM [facility] Ketones, UA Negative Negative 07/14/2020 11:00 PM [facility] Bilirubin, UA Negative Negative 07/14/2020 11:00 PM [facility] Blood, UA Trace(A) Negative 07/14/2020 11:00 PM [facility] Protein, UA >=300 mg/dL (3+)(A) Negative 07/14/2020 11:00 PM [facility] Leuk Esterase, UA Trace(A) Negative 07/14/2020 11:00 PM [facility] Nitrite, UA Negative Negative 07/14/2020 11:00 PM [facility] Urobilinogen, UA 0.2 E.U./dL 0.2 - 1.0 E.U./dL 07/14/2020 11:00 PM [facility] Urine Urine specimen collection, clean catch / Unknown Collection / Unknown 07/14/2020 2:52 PM EST 07/14/2020 4:47 PM EST Adina Sands MD URINE ORDERABLES Final Re sult Performing Organization Address [facility] Co de Phone Number [facility]
[address] [place] [address], * (ABNORMAL) CBC Auto Differential (07/14/2020 2:52 PM EST) WBC 6.81 3.40 - 10.80 10*3/mm3 07/14/2020 10:56 PM EST [facility] RBC 4.16 3.77 - 5.28 10*6/mm3 07/14/2020 10:56 PM [facility] Hemoglobin 13.1 12.0 - 15.9 g/dL 07/14/2020 10:56 PM [facility] Hematocrit 40.0 34.0 - 46.6 % 07/14/2020 10:56 PM [facility] MCV 96.2 79.0 - 97.0 fL 07/14/2020 10:56 PM [facility] MCH 31.5 26.6 - 33.0 pg 07/14/2020 10:56 PM [facility] MCHC 32.8 31.5 - 35.7 g/dL 07/14/2020 10:56 PM [facility] RDW 12.1(L) 12.3 - 15.4 % 07/14/2020 10:56 PM [facility] RDW-SD 43.2 37.0 - 54.0 fl 07/14/2020 10:56 PM [facility] MPV 13.8(H) 6.0 - 12.0 fL 07/14/2020 10:56 PM [facility] Platelets 198 140 - 450 10*3/mm3 07/14/2020 10:56 PM [facility] Neutrophil % 60.0 42.7 - 76.0 % 07/14/2020 10:56 PM [facility] Lymphocyte % 28.9 19.6 - 45.3 % 07/14/2020 10:56 PM [facility] Monocyte % 5.4 5.0 - 12.0 % 07/14/2020 10:56 PM [facility] Eosinophil % 5.0 0.3 - 6.2 % 07/14/2020 10:56 PM [facility] Basophil % 0.6 0.0 - 1.5 % 07/14/2020 10:56 PM [facility] Immature Grans % 0.1 0.0 - 0.5 % 07/14/2020 10:56 PM [facility] Neutrophils, Absolute 4.08 1.70 - 7.00 10*3/mm3 07/14/2020 10:56 PM [facility] Lymphocytes, Absolute 1.97 0.70 - 3.10 10*3/mm3 07/14/2020 10:56 PM [facility] Monocytes, Absolute 0.37 0.10 - 0.90 10*3/mm3 07/14/2020 10:56 PM [facility] Eosinophils, Absolute 0.34 0.00 - 0.40 10*3/mm3 07/14/2020 10:56 PM [facility] Basophils, Absolute 0.04 0.00 - 0.20 10*3/mm3 07/14/2020 10:56 PM [facility] Immature Grans, Absolute 0.01 0.00 - 0.05 10*3/mm3 07/14/2020 10:56 PM [facility] nRBC 0.1 0.0 - 0.2 /100 WBC 07/14/2020 10:56 PM [facility] Blood Venipuncture / Unknown 07/14/2020 2:52 PM EST 07/14/2020 3:25 PM EST us Adina Sands MD LAB BLOOD ORDERABLES Amy foreman Result [facility]
[address] [place] [address], * (ABNORMAL) Iron Profile (07/14/2020 2:52 PM EST) Iron 77 37 - 145 mcg/dL 07/14/2020 11:45 PM [facility] Iron Saturation (TSAT) 27 20 - 50 % 07/14/2020 11:45 PM EST [facility] Transferrin 190(L) 200 - 360 mg/dL 07/14/2020 11:45 PM EST [facility] TIBC 283(L) 298 - 536 mcg/dL 07/14/2020 11:45 PM EST [facility] Blood Venipuncture / Unknown 07/14/2020 2:52 PM EST 07/14/2020 3:25 PM EST Adina Sands MD LAB BLOOD ORDERABLES Amy l Result Performing Organization Address [facility]/ZIP Co de Phone Number [facility]
[address] [place] [address], * Protein, Urine, Random - Urine, Clean Catch (07/14/2020 2:52 PM EST) Total Protein, Urine 179.0 mg/dL 07/14/2020 11:16 PM EST [facility] Urine Urine specimen collection, clean catch / Unknown Collection / Unknown 07/14/2020 2:52 PM EST 07/14/2020 4:47 PM EST Narrative [facility] - 07/14/2020 11:16 PM EST Reference intervals for random urine have not been established. Clinical usage is dependent upon physician's interpretation in combination with other laboratory tests. Adina Sands MD URINE ORDERABLES Final Re sult Performing Organization Address [facility]/ZIP Co de Phone Number [facility]
[address] [place] [address], * Creatinine, Urine, Random - Urine, Clean Catch (07/14/2020 2:52 PM EST) Creatinine, Urine 91.7 mg/dL 07/14/2020 11:16 PM EST [facility] Urine Urine specimen collection, clean catch / Unknown Collection / Unknown 07/14/2020 2:52 PM EST 07/14/2020 4:47 PM EST Narrative [facility] - 07/14/2020 11:16 PM EST Reference intervals for random urine have not been established. Clinical usage is dependent upon physician's interpretation in combination with other laboratory tests. Adina Sands MD URINE ORDERABLES Final Re sult [facility]
[address] [place] [address], * (ABNORMAL) Renal Function Panel (07/14/2020 2:52 PM EST) Glucose 139(H) 65 - 99 mg/dL 07/14/2020 11:45 PM [facility] BUN 25(H) 6 - 20 mg/dL 07/14/2020 11:45 PM [facility] Creatinine 3.03(H) 0.57 - 1.00 mg/dL 07/14/2020 11:45 PM [facility] Sodium 140 136 - 145 mmol/L 07/14/2020 11:45 PM [facility] Potassium 4.4 3.5 - 5.2 mmol/L 07/14/2020 11:45 PM [facility] Chloride 110(H) 98 - 107 mmol/L 07/14/2020 11:45 PM [facility] CO2 21.5(L) 22.0 - 29.0 mmol/L 07/14/2020 11:45 PM [facility] Calcium 9.1 8.6 - 10.5 mg/dL 07/14/2020 11:45 PM [facility] Albumin 4.10 3.50 - 5.20 g/dL 07/14/2020 11:45 PM [facility] Phosphorus 3.0 2.5 - 4.5 mg/dL 07/14/2020 11:45 PM [facility] Anion Gap 8.5 5.0 - 15.0 mmol/L 07/14/2020 11:45 PM [facility] BUN/Creatinine Ratio 8.3 7.0 - 25.0 07/14/2020 11:45 PM EST [facility] eGFR Non Amer 18(L) >60 mL/min/1.7 3 07/14/2020 11:45 PM EST [facility] Blood Venipuncture / Unknown 07/14/2020 2:52 PM EST 07/14/2020 3:25 PM EST Narrative [facility] - 07/14/2020 11:45 PM EST GFR Normal >60 Chronic Kidney Disease <60 Kidney Failure <15 Adina Sands MD LAB BLOOD ORDERABLES Amy foreman Result [facility]
[address] [place] [address], documented in this encounter Visit Diagnoses Diagnosis Chronic kidney disease, stage V Chronic kidney disease, Stage V Diabetes mellitus without complication Type II or unspecified type diabetes mellitus without mention of complication, not stated as uncontrolled Anemia, unspecified type documented in this encounter Care Teams Patron Attendant Relationship Specialty Start Date End Date Jaquan Conley MD [address] [place] [address] PCP - General Internal Medicine 04/23/20 02/14/23 documented as of this encounter
--- OUTSIDE RECORDS SUMMARY | 2024-06-04 07:57 | XMS_ITS | Encounter Summary ---
[facility] Address [address] [place] [address] Care Team Providers Care Two Way Radio Installer Name Role Phone Jaquan Conley MD Primary Care Provider [phone] Encounter Details Date Type Department Care Team (Late st Contact Info) Description 05/15/2021 12:00 PM EDT Lab [facility] [address] [place] [address] Anemia, unspecified type Social History [...] - 10.80 10*3/mm3 05/15/2021 6:58 PM EDT [facility] RBC 4.07 3.77 - 5.28 10*6/mm3 05/15/2021 6:58 PM EDT [facility] Hemoglobin 12.5 12.0 - 15.9 g/dL 05/15/2021 6:58 PM EDT [facility] Hematocrit 38.4 34.0 - 46.6 % 05/15/2021 6:58 PM EDT [facility] MCV 94.3 79.0 - 97.0 fL 05/15/2021 6:58 PM EDT [facility] MCH 30.7 26.6 - 33.0 pg 05/15/2021 6:58 PM EDT [facility] MCHC 32.6 31.5 - 35.7 g/dL 05/15/2021 6:58 PM EDT [facility] RDW 12.2(L) 12.3 - 15.4 % 05/15/2021 6:58 PM EDT [facility] RDW-SD 41.9 37.0 - 54.0 fl 05/15/2021 6:58 PM T [facility] MPV 13.9(H) 6.0 - 12.0 fL 05/15/2021 6:58 PM EDT [facility] Platelets 162 140 - 450 10*3/mm3 05/15/2021 6:58 PM EDT [facility] Neutrophil % 53.8 42.7 - 76.0 % 05/15/2021 6:58 PM EDT [facility] Lymphocyte % 36.7 19.6 - 45.3 % 05/15/2021 6:58 PM EDT [facility] Monocyte % 5.2 5.0 - 12.0 % 05/15/2021 6:58 PM EDT [facility] Eosinophil % 3.6 0.3 - 6.2 % 05/15/2021 6:58 PM EDT [facility] Basophil % 0.5 0.0 - 1.5 % 05/15/2021 6:58 PM EDT [facility] Immature Grans % 0.2 0.0 - 0.5 % 05/15/2021 6:58 PM T [facility] Neutrophils, Absolute 3.31 1.70 - 7.00 10*3/mm3 05/15/2021 6:58 PM EDT [facility] Lymphocytes, Absolute 2.26 0.70 - 3.10 10*3/mm3 05/15/2021 6:58 PM EDT [facility] Monocytes, Absolute 0.32 0.10 - 0.90 10*3/mm3 05/15/2021 6:58 PM EDT [facility] Eosinophils, Absolute 0.22 0.00 - 0.40 10*3/mm3 05/15/2021 6:58 PM EDT [facility] Basophils, Absolute 0.03 0.00 - 0.20 10*3/mm3 05/15/2021 6:58 PM EDT [facility] Immature Grans, Absolute 0.01 0.00 - 0.05 10*3/mm3 05/15/2021 6:58 PM EDT [facility] nRBC 0.0 0.0 - 0.2 /100 WBC 05/15/2021 6:58 PM EDT [facility] Blood Venipuncture / Unknown 05/15/2021 12:18 PM EDT 05/15/2021 1:22 PM EDT Adina Sands MD LAB BLOOD ORDERABLES Amy l Result Performing Organization Address City/[facility]/ZIP Co de Phone Number [facility]
[address] [place] [address], * (ABNORMAL) Urinalysis, Microscopic Only - Urine, Clean Catch (05/15/2021 12:18 PM EDT) RBC, UA 0-2 None Seen, 0-2 /HPF 05/15/2021 7:20 PM EDT [facility] WBC, UA 0-2 None Seen, 0-2 /HPF 05/15/2021 7:20 PM EDT [facility] Bacteria, UA 4+(A) None Seen /HPF 05/15/2021 7:20 PM EDT [facility] Squamous Epithelial Cells, UA 0-2 None Seen, 0-2 /HPF 05/15/2021 7:20 PM EDT [facility] Hyaline Casts, UA None Seen None Seen /LPF 05/15/2021 7:20 PM EDT [facility] Methodology Automated Microscopy 05/15/2021 7:20 PM EDT [facility] Urine Urine specimen collection, clean catch / Unknown Collection / Unknown 05/15/2021 12:18 PM EDT 05/15/2021 1:19 PM EDT Adina Sands MD URINE ORDERABLES Final Re sult Performing Organization Address City/[facility]/ZIP Co de Phone Number [facility]
[address] [place] [address], [place] [phone] * (ABNORMAL) Urinalysis without microscopic (no culture) - Urine, Clean Catch (05/15/2021 12:18 PM EDT) Color, UA Yellow Yellow, Straw 05/15/2021 7:14 PM EDT [facility] Appearance, UA Clear Clear 05/15/2021 7:14 PM EDT [facility] pH, UA 6.5 5.0 - 8.0 05/15/2021 7:14 PM EDT [facility] Specific [place], UA 1.012 1.005 - 1.030 05/15/2021 7:14 PM EDT [facility] Glucose, UA Negative Negative 05/15/2021 7:14 PM EDT [facility] Ketones, UA Negative Negative 05/15/2021 7:14 PM EDT [facility] Bilirubin, UA Negative Negative 05/15/2021 7:14 PM EDT [facility] Blood, UA Negative Negative 05/15/2021 7:14 PM EDT [facility] Protein, UA 100 mg/dL (2+)(A) Negative 05/15/2021 7:14 PM EDT [facility] Leuk Esterase, UA Negative Negative 05/15/2021 7:14 PM EDT [facility] Nitrite, UA Negative Negative 05/15/2021 7:14 PM EDT [facility] Urobilinogen, UA 0.2 E.U./dL 0.2 - 1.0 E.U./dL 05/15/2021 7:14 PM EDT [facility] Urine Urine specimen collection, clean catch / Unknown Collection / Unknown 05/15/2021 12:18 PM EDT 05/15/2021 1:19 PM EDT us Adina Sands MD URINE ORDERABLES Final Re sult [facility]
[address] [place] [address], [place] [phone] * (ABNORMAL) Ferritin (05/15/2021 12:18 PM EDT) Pathologist [facility] Ferritin 302.00(H) 13.00 - 150.00 ng/mL 05/15/2021 8:42 PM EDT [facility] Blood Venipuncture / Unknown 05/15/2021 12:18 PM EDT 05/15/2021 1:22 PM EDT [facility] - 05/15/2021 8:42 PM EDT Results may be falsely decreased if patient taking Biotin. Adina Sands MD LAB BLOOD ORDERABLES Amy foreman Result [facility]
[address] [place] [address], * (ABNORMAL) Renal Function Panel (05/15/2021 12:18 PM EDT) Pathologist [facility] Glucose 94 65 - 99 mg/dL 05/15/2021 8:28 PM EDT [facility] BUN 40(H) 6 - 20 mg/dL 05/15/2021 8:28 PM EDT [facility] Creatinine 3.83(H) 0.57 - 1.00 mg/dL 05/15/2021 8:28 PM EDT [facility] Sodium 140 136 - 145 mmol/L 05/15/2021 8:28 PM EDT [facility] Potassium 5.5(H) 3.5 - 5.2 mmol/L 05/15/2021 8:28 PM EDT [facility] Chloride 108(H) 98 - 107 mmol/L 05/15/2021 8:28 PM EDT [facility] CO2 21.5(L) 22.0 - 29.0 mmol/L 05/15/2021 8:28 PM EDT [facility] Calcium 8.8 8.6 - 10.5 mg/dL 05/15/2021 8:28 PM EDT [facility] Albumin 3.90 3.50 - 5.20 g/dL 05/15/2021 8:28 PM EDT [facility] Phosphorus 5.1(H) 2.5 - 4.5 mg/dL 05/15/2021 8:28 PM EDT [facility] Anion Gap 10.5 5.0 - 15.0 mmol/L 05/15/2021 8:28 PM EDT [facility] BUN/Creatinine Ratio 10.4 7.0 - 25.0 05/15/2021 8:28 PM EDT [facility] eGFR Non Amer 14(L) >60 mL/min/1.7 3 05/15/2021 8:28 PM EDT [facility] Comment:<15 Indicative of ki dney failure. eGFR Amer 05/15/2021 8:28 PM EDT [facility] Comment:<15 Indicative of ki dney failure. Blood Venipuncture / Unknown 05/15/2021 12:18 PM EDT 05/15/2021 1:22 PM EDT Narrative [facility] - 05/15/2021 8:28 PM EDT GFR Normal >60 Chronic Kidney Disease <60 Kidney Failure <15 Adina Sands MD LAB BLOOD ORDERABLES Amy l Result [facility]
[address] [place] [address], * (ABNORMAL) Iron Profile (05/15/2021 12:18 PM EDT) Iron 67 37 - 145 mcg/dL 05/15/2021 8:28 PM EDT [facility] Iron Saturation (TSAT) 27 20 - 50 % 05/15/2021 8:28 PM EDT [facility] Transferrin 168(L) 200 - 360 mg/dL 05/15/2021 8:28 PM EDT [facility] TIBC 250(L) 298 - 536 mcg/dL 05/15/2021 8:28 PM EDT [facility] Blood Venipuncture / Unknown 05/15/2021 12:18 PM EDT 05/15/2021 1:22 PM EDT Adina Sands MD LAB BLOOD ORDERABLES Amy l Result [facility]
[address] [place] [address], documented in this encounter Visit Diagnoses Diagnosis Anemia, unspecified type documented in this encounter Care Teams Two Way Radio Installer Relationship Specialty Start Date End Date Jaquan Conley MD [address] [place] [address] PCP - General Internal Medicine 04/23/20 02/14/23 documented as of this encounter
--- OUTSIDE RECORDS SUMMARY | 2024-06-04 07:57 | XMS_ITS | Encounter Summary ---
Author Organization [facility] Address [address] [place] [address] Care Team Providers Care Senior Net Architect Name Role Phone Jaquan Conley MD Primary Care Provider [phone] Encounter Details Date Type Department Care Team (Late st Contact Info) Description 06/26/2021 11:50 AM EST Lab [facility] [address] [place] [address] Urinary tract infection without hematuria, [...] AM EST Performed at: ??01 - [facility] [address] ??[id number] Fire Pilot: Jacob Whaley PhD, Phone: ??[phone] us Mare Kapoor [employer] SOFTWARE DEVELOPER MICROBIOLOGY - GENERAL ORDERABL ES Final Result [facility] [address] [place] [id number], documented in this encounter Visit Diagnoses Diagnosis Urinary tract infection without hematuria, site unspecified documented in this encounter Care Teams Senior Net Architect Relationship Specialty Start Date End Date Jaquan Conley MD [address] [place] [address] PCP - General Internal Medicine 04/23/20 02/14/23 documented as of this encounter
--- OUTSIDE RECORDS SUMMARY | 2024-06-04 07:58 | XMS_ITS | Encounter Summary ---
[facility] Address [address] [id number] Care Team Providers Care Summer Sessions Director Name Role Phone Unavailable Primary Care Provider Unavailabl e Reason for Visit * Reason Comments Flu Symptoms Encounter Details Date Type Department Care Team (Late st Contact Info) Description 05/03/2019 3:44 PM EDT - 05/03/2019 5:01 PM EDT Emergency [facility] [address] [place] [phone] Christopher Aggarwal MD Acute bronchitis, unspecified [...] through Care Everywhere. * Acute Bronchitis Adult Hygs-dq-[id number] (Peruvian) documented in this encounter Medications at Time [...] SECTION 10/17/2012 ??? SECTION ??? INDUCED 2006 [facility] History reviewed. No pertinent family [...] For this patient encounter, I reviewed the MATERIALS ENGINEERING TECHNICIAN or PA documentation, treatment plan, and [...] None Seen /HPF 05/03/2019 4:31 PM EDT [facility] WBC, UA 0-2(A) None Seen /HPF 05/03/2019 4:31 PM EDT [facility] Bacteria, UA 1+(A) None Seen /HPF 05/03/2019 4:31 PM EDT [facility] Squamous Epithelial Cells, UA 0-2 None Seen, 0-2 /HPF 05/03/2019 4:31 PM EDT [facility] Hyaline Casts, UA None Seen None Seen /LPF 05/03/2019 4:31 PM EDT [facility] Methodology Manual Light Microscopy 05/03/2019 4:31 PM EDT [facility] Urine Urine specimen collection, clean catch / Unknown Collection / Unknown 05/03/2019 4:05 PM EDT 05/03/2019 4:07 PM EDT Bc Dumont PA-C URINE ORDERABLES Final Result [facility]
[address] [place] [address], [place] [phone] * (ABNORMAL) Urinalysis With Culture If Indicated - Urine, Clean Catch (05/03/2019 4:05 PM EDT) Color, UA Yellow Yellow, Straw 05/03/2019 4:13 PM EDT [facility] Appearance, UA Clear Clear 05/03/2019 4:13 PM EDT [facility] pH, UA 7.0 5.0 - 8.0 05/03/2019 4:13 PM EDT [facility] Specific [place], UA 1.010 1.005 - 1.030 05/03/2019 4:13 PM EDT [facility] Glucose, UA Negative Negative 05/03/2019 4:13 PM EDT [facility] Ketones, UA Negative Negative 05/03/2019 4:13 PM EDT [facility] Bilirubin, UA Negative Negative 05/03/2019 4:13 PM EDT [facility] Blood, UA Negative Negative 05/03/2019 4:13 PM EDT [facility] Protein, UA >=300 mg/dL (3+)(A) Negative 05/03/2019 4:13 PM EDT [facility] Leuk Esterase, UA Negative Negative 05/03/2019 4:13 PM EDT [facility] Nitrite, UA Negative Negative 05/03/2019 4:13 PM EDT [facility] Urobilinogen, UA 0.2 E.U./dL 0.2 - 1.0 E.U./dL 05/03/2019 4:13 PM EDT [facility] Urine Urine specimen collection, clean catch / Unknown Collection / Unknown 05/03/2019 4:05 PM EDT 05/03/2019 4:07 PM EDT Bc MENDEZ-Todd URINE ORDERABLES Final Result Performing Organization Address City/[facility]/ZIP Co de Phone Number [facility]
[address] [place] [address], [place] [phone] * , Urine - Urine, Clean Catch (05/03/2019 4:05 PM EDT) HCG, Urine QL Negative Negative 05/03/2019 4:14 PM EDT [facility] Urine Urine specimen collection, clean catch / Unknown Collection / Unknown 05/03/2019 4:05 PM EDT 05/03/2019 4:07 PM EDT Bc MENDEZ-C URINE ORDERABLES Final Result Performing Organization Address [facility] de Phone Number [facility]
[address] [place] [address], [place] [phone] * Beta Strep Culture, Throat - Swab, Throat (05/03/2019 3:51 PM EDT) Throat Culture, Beta Strep No Beta Hemolytic Streptococcus Isolated KIRA 05/05/2019 8:17 AM EDT [facility] Swab Specimen from throat / Unknown Collection / Unknown 05/03/2019 3:51 PM EDT 05/03/2019 3:54 PM EDT Narrative [facility] - 05/05/2019 8:17 AM EDT Group A Strep incidence is low in adults. Positive culture for Beta hemolytic Streptococcus species can reflect colonization and not true infection. Please correlate clinically. Christopher Aggarwal MD MICROBIOLOGY - GENERAL O RDERABLES Final Result Performing Organization Address City/[facility]/ZIP Co de Phone Number [facility]
[address] [place] [address], [place] [phone] * Influenza Antigen, Rapid - Swab, Nasopharynx (05/03/2019 3:51 PM EDT) Influenza A Ag, EIA Negative Negative 05/03/2019 4:07 PM EDT [facility] Influenza B Ag, EIA Negative Negative 05/03/2019 4:07 PM EDT [facility] Swab Nasopharyngeal structure / Unknown Collection / Unknown 05/03/2019 3:51 PM EDT 05/03/2019 3:53 PM EDT Christopher Aggarwal MD MICROBIOLOGY - GENERAL O RDERABLES Final Result Performing Organization Address City/[facility]/ZIP Co de Phone Number [facility]
[address] [place] [address], [place] [phone] * Rapid Strep A Screen - Swab, Throat (05/03/2019 3:51 PM EDT) Strep A Ag Negative Negative 05/03/2019 4:05 PM EDT [facility] Swab Specimen from throat / Unknown Collection / Unknown 05/03/2019 3:51 PM EDT 05/03/2019 3:54 PM EDT Christopher Aggarwal MD MICROBIOLOGY - GENERAL O RDERABLES Final Result Performing Organization Address City/[facility]/ZIP Co de Phone Number [facility]
[address] [place] [address], [place] [phone] documented in this encounter Visit Diagnoses Diagnosis Acute bronchitis, unspecified organism- Primary documented in this encounter
--- OUTSIDE RECORDS SUMMARY | 2024-06-04 07:58 | XMS_ITS | Encounter Summary ---
[facility] Address [address] [place] [address] Care Team Providers Care Workers Compensation Claims Specialist Name Role Phone Unavailable Primary Care Provider Unavailabl e Encounter Details Date Type Department Care Team (Late st Contact Info) Description 07/23/2019 10:00 AM EST Lab [facility] [address] [place] [phone] Chronic kidney disease, stage V [...] Confirmation Tube (07/23/2019 10:03 AM EST) Pathologist [facility] Extra Tube Hold for add-ons. 07/23/2019 10:15 PM EST [facility] Comment:Auto resulted. Blood Venipuncture / Unknown 07/23/2019 10:03 AM EST 07/23/2019 10:44 AM EST us Mukul Stevens MD LAB BLOOD ORDERABLES F inal Result Performing Organization Address City/[facility]/ZIP Co de Phone Number [facility]
[address] [place] [address], * Hepatitis B Surface Antigen (07/23/2019 10:03 AM EST) Pathologist [facility] Hepatitis B Surface Ag Non-Reacti ve Non-Reacti ve 07/23/2019 6:32 PM EST [facility] Blood Venipuncture / Unknown 07/23/2019 10:03 AM EST 07/23/2019 10:39 AM EST us Mukul Stevens MD LAB BLOOD ORDERABLES F inal Result [facility]
[address] [place] [address], * Hepatitis C Antibody (07/23/2019 10:03 AM EST) Pathologist [facility] Hepatitis C Ab Non-Reacti ve Non-Reacti ve 07/23/2019 6:31 PM EST [facility] Blood Venipuncture / Unknown 07/23/2019 10:03 AM EST 07/23/2019 10:38 AM EST us Mukul Stevens MD LAB BLOOD ORDERABLES F inal Result Performing Organization Address [facility]/ZIP Co de Phone Number [facility]
[address] [place] [address], * (ABNORMAL) Hepatitis B Surface Antibody (07/23/2019 10:03 AM EST) Hep B S Ab Reactive(A ) Non-Reacti ve 07/23/2019 6:31 PM EST [facility] Blood Venipuncture / Unknown 07/23/2019 10:03 AM EST 07/23/2019 10:38 AM EST Mukul Stevens MD LAB BLOOD ORDERABLES F inal Result Performing Organization Address [facility] Co de Phone Number [facility]
[address] [place] [address], [place] [phone] documented in this encounter Visit Diagnoses Diagnosis Chronic kidney disease, stage V Chronic kidney disease, Stage V documented in this encounter
--- OUTSIDE RECORDS SUMMARY | 2024-06-04 07:58 | XMS_ITS | Encounter Summary ---
[facility] Address [address] [phone] Care Team Providers Care Sales Support Engineer Name Role Phone Unavailable Primary Care Provider Unavailabl e Reason for Visit * Reason Comments Chest Pain Encounter Details Date Type Department Care Team (Late st Contact Info) Description 07/28/2019 7:56 PM EST - 07/28/2019 9:45 PM EST Emergency [facility] [address] [place] [phone] Christopher Aggarwal MD Bad taste in [...] Care Everywhere. * Nonspecific Chest Pain Adult Jmrk-lr-Kdwy (Tongan) * Gastroesophageal Reflux Disease Adult Jiwf-yv-Gamg (Tongan) documented in this encounter Medications at Time [...] a few days ago she ate at [facility] and subsequently had a couple days worth of diarrhea and vomiting. She was afraid that shehad been food poisoned . She was feeling better today and went to [employer] about 3 hours prior toarrival. She states after eating at [employer] she had a gut wrenching sensation and [...] SECTION 10/17/2012 ??? SECTION ??? INDUCED 2006 [facility] History reviewed. No pertinent family history. [...] Name Type Priority Associated Diagnoses Date /Time Jenkins Draw Lab STAT 07/28/2019 8 :15 PM [...] - 10.80 10*3/mm3 07/28/2019 8:24 PM EST [facility] RBC 3.23(L) 3.77 - 5.28 10*6/mm3 07/28/2019 8:24 PM EST [facility] Hemoglobin 9.7(L) 12.0 - 15.9 g/dL 07/28/2019 8:24 PM [facility] Hematocrit 30.1(L) 34.0 - 46.6 % 07/28/2019 8:24 PM [facility] MCV 93.2 79.0 - 97.0 fL 07/28/2019 8:24 PM [facility] MCH 30.0 26.6 - 33.0 pg 07/28/2019 8:24 PM [facility] MCHC 32.2 31.5 - 35.7 g/dL 07/28/2019 8:24 PM [facility] RDW 13.9 12.3 - 15.4 % 07/28/2019 8:24 PM [facility] RDW-SD 46.9 37.0 - 54.0 fl 07/28/2019 8:24 PM [facility] MPV 12.7(H) 6.0 - 12.0 fL 07/28/2019 8:24 PM [facility] Platelets 176 140 - 450 10*3/mm3 07/28/2019 8:24 PM [facility] Neutrophil % 53.5 42.7 - 76.0 % 07/28/2019 8:24 PM [facility] Lymphocyte % 35.6 19.6 - 45.3 % 07/28/2019 8:24 PM [facility] Monocyte % 6.8 5.0 - 12.0 % 07/28/2019 8:24 PM [facility] Eosinophil % 3.2 0.3 - 6.2 % 07/28/2019 8:24 PM [facility] Basophil % 0.4 0.0 - 1.5 % 07/28/2019 8:24 PM [facility] Immature Grans % 0.5 0.0 - 0.5 % 07/28/2019 8:24 PM [facility] Neutrophils, Absolute 2.99 1.70 - 7.00 10*3/mm3 07/28/2019 8:24 PM [facility] Lymphocytes, Absolute 1.99 0.70 - 3.10 10*3/mm3 07/28/2019 8:24 PM EST [facility] Monocytes, Absolute 0.38 0.10 - 0.90 10*3/mm3 07/28/2019 8:24 PM EST [facility] Eosinophils, Absolute 0.18 0.00 - 0.40 10*3/mm3 07/28/2019 8:24 PM EST [facility] Basophils, Absolute 0.02 0.00 - 0.20 10*3/mm3 07/28/2019 8:24 PM EST [facility] Immature Grans, Absolute 0.03 0.00 - 0.05 10*3/mm3 07/28/2019 8:24 PM EST [facility] nRBC 0.0 0.0 - 0.2 /100 WBC 07/28/2019 8:24 PM EST [facility] Blood Venipuncture / Unknown 07/28/2019 8:15 PM EST 07/28/2019 8:20 PM EST Christopher Aggarwal MD LAB BLOOD ORDERABLES Fin al Result [facility]
[address] [place] [address], * Gold Top - SST (07/28/2019 8:15 PM EST) Extra Tube Hold for add-ons. 07/28/2019 9:30 PM EST [facility] Comment:Auto resulted. Blood Venipuncture / Unknown 07/28/2019 8:15 PM EST 07/28/2019 8:20 PM EST Christopher Aggarwal MD LAB BLOOD ORDER ONLY Fin al Result [facility]
[address] [place] [address], * Lavender Top (07/28/2019 8:15 PM EST) Extra Tube hold for add-on 07/28/2019 9:30 PM EST [facility] Comment:Auto resulted Blood Venipuncture / Unknown 07/28/2019 8:15 PM EST 07/28/2019 8:20 PM EST us Christopher Aggarwal MD LAB BLOOD ORDER ONLY Fin al Result Performing Organization Address City/[facility]/ZIP Co de Phone Number [facility]
[address] [place] [address], * Green Top (Gel) (07/28/2019 8:15 PM EST) Extra Tube Hold for add-ons. 07/28/2019 9:30 PM EST [facility] Comment:Auto resulted. Blood Venipuncture / Unknown 07/28/2019 8:15 PM EST 07/28/2019 8:20 PM EST us Christopher Aggarwal MD LAB BLOOD ORDER ONLY Fin al Result Performing Organization Address [facility] Co de Phone Number [facility]
[address] [place] [address], [place] [phone] * Light Blue Top (07/28/2019 8:15 PM EST) Extra Tube hold for add-on 07/28/2019 9:30 PM EST [facility] Comment:Auto resulted Blood Venipuncture / Unknown 07/28/2019 8:15 PM EST 07/28/2019 8:20 PM EST us Christopher Aggarwal MD LAB BLOOD ORDER ONLY Fin al Result Performing Organization Address City/[facility] Co de Phone Number [facility]
[address] [place] [address], [place] [phone] * Troponin (07/28/2019 8:15 PM EST) Troponin T <0.010 0.000 - 0.030 ng/mL 07/28/2019 8:45 PM EST [facility] Blood Venipuncture / Unknown 07/28/2019 8:15 PM EST 07/28/2019 8:20 PM EST Narrative [facility] - 07/28/2019 8:45 PM EST Troponin [...] MD LAB BLOOD ORDERABLES Fin al Result [facility]
[address] [place] [address], [place] [phone] * (ABNORMAL) Comprehensive Metabolic Panel (07/28/2019 8:15 PM EST) Glucose 210(H) 65 - 99 mg/dL 07/28/2019 8:45 PM EST [facility] Comment:Glucose >180, Hemogl obin A1C recommended. BUN 62(H) 6 - 20 mg/dL 07/28/2019 8:45 PM EST [facility] Creatinine 4.75(H) 0.57 - 1.00 mg/dL 07/28/2019 8:45 PM EST [facility] Sodium 140 136 - 145 mmol/L 07/28/2019 8:45 PM EST [facility] Potassium 4.3 3.5 - 5.2 mmol/L 07/28/2019 8:45 PM EST [facility] Chloride 104 98 - 107 mmol/L 07/28/2019 8:45 PM EST [facility] CO2 19.5(L) 22.0 - 29.0 mmol/L 07/28/2019 8:45 PM EST [facility] Calcium 7.5(L) 8.6 - 10.5 mg/dL 07/28/2019 8:45 PM EST [facility] Total Protein 6.7 6.0 - 8.5 g/dL 07/28/2019 8:45 PM [facility] Albumin 3.80 3.50 - 5.20 g/dL 07/28/2019 8:45 PM EST [facility] ALT (SGPT) 25 1 - 33 U/L 07/28/2019 8:45 PM [facility] AST (SGOT) 18 1 - 32 U/L 07/28/2019 8:45 PM EST [facility] Alkaline Phosphatase 57 39 - 117 U/L 07/28/2019 8:45 PM [facility] Total Bilirubin <0.2(L) 0.2 - 1.2 mg/dL 07/28/2019 8:45 PM [facility] eGFR Non Amer 11(L) >60 mL/min/1.7 3 07/28/2019 8:45 PM [facility] Comment:<15 Indicative of ki dney failure. eGFR Amer 07/28/2019 8:45 PM [facility] Comment:<15 Indicative of ki dney failure. Globulin 2.9 gm/dL 07/28/2019 8:45 PM [facility] A/G Ratio 1.3 g/dL 07/28/2019 8:45 PM [facility] BUN/Creatinine Ratio 13.1 7.0 - 25.0 07/28/2019 8:45 PM [facility] Anion Gap 16.5(H) 5.0 - 15.0 mmol/L 07/28/2019 8:45 PM [facility] Blood Venipuncture / Unknown 07/28/2019 8:15 PM EST 07/28/2019 8:20 PM EST [facility] - 07/28/2019 8:45 PM EST GFR Normal >60 Chronic Kidney Disease <60 Kidney Failure <15 us Christopher Aggarwal MD LAB BLOOD ORDERABLES Fin al Result [facility]
[address] [place] [address], [place] [phone] documented in this encounter Visit Diagnoses Diagnosis [...]
--- OUTSIDE RECORDS SUMMARY | 2024-06-04 07:58 | XMS_ITS | Encounter Summary ---
[facility] Address [address] [place] [id number] Care Team Providers Care Landscape Photographer Name Role Phone Unavailable Primary Care Provider Unavailabl e Reason for Visit * Reason Comments Oral Swelling Encounter Details Date Type Department Care Team (Late st Contact Info) Description 02/06/2020 6:15 PM EDT - 02/06/2020 7:26 PM EDT Emergency [facility] [address] [place] [phone] Christopher Aggarwal MD Finley, Paul W, [...] this encounter ED Notes * [place]l [place], PARKING RAMP ATTENDANT - 02/06/2020 7:12 PM EDT Images from [...] GASTRIC SLEEVE LAPAROSCOPIC ??? INDUCED 2006 [facility] History reviewed. No pertinent family [...] For this patient encounter, I reviewed the PEST CONTROL SPECIALIST or PA documentation, treatment plan, and medical [...]
--- OUTSIDE RECORDS SUMMARY | 2024-06-04 07:58 | XMS_ITS | Encounter Summary ---
[facility] [address] [place] [phone] Care Team Providers Care Plastics And Composites Inspector Name Role Phone Unavailable Primary Care Provider Unavailabl e Reason for Visit * Reason Comments Fall Encounter Details Date Type Department Care Team (Late st Contact Info) Description 06/15/2019 2:26 PM EST - 06/15/2019 3:21 PM EST Emergency [facility] [address] [place] [phone] Jaquan Arenas, Sprain of interphalangeal joint [...] through Care Everywhere. * Finger Sprain Adult ([place] Islander) * Chest Wall Pain Lfyr-zc-Mmxj ([place] Islander) documented in this encounter Medications at Time [...] SECTION 10/17/2012 ??? SECTION ??? INDUCED 2006 [facility] History reviewed. No pertinent family [...] For this patient encounter, I reviewed the APPLICATIONS PROGRAMMER or PA documentation, treatment plan, and medical [...]
--- OUTSIDE RECORDS SUMMARY | 2024-06-04 07:58 | XMS_ITS | Encounter Summary ---
Author Organization [facility] Address [address] [phone] Care Team Providers Care Rehabilitation Program Coordinator Name Role Phone Unavailable Primary Care Provider Unavailabl e Reason for Visit * Reason Comments Outpatient Infusion * Episode Based Medications (Routine) - Closed Specialty Diagnoses / Procedures Referred By Contac t Referred To Contact Diagnoses Chronic kidney disease, stage IV (severe) Anemia due to chronic kidney disease, unspecified CKD stage Procedures OK INJ [facility]ERRIC [facility] 1MG Kamilla Mccullough, PharmD [address] [place] [address] Phone: tel: Referral ID Status Reason Start Date Expiration Date Visits Re quested Visits Authorized [id number] Closed 07/06/2019 08/05/2019 1 1 Encounter Details Date Type Department Care Team (Latest Contact Info) Description 07/09/2019 1:00 PM EST - 07/09/2019 11:59 PM [facility] Hospital Encounter [facility] [address] [facility] MEDICAL OFFICE [address] [address] Anemia due to chronic kidney [...]
--- OUTSIDE RECORDS SUMMARY | 2024-06-04 07:58 | XMS_ITS | Encounter Summary ---
Author Organization [facility] Address [address] [place] [address] Care Team Providers Care Specialties Operator Name Role Phone Unavailable Primary Care Provider Unavailabl e Encounter Details Date Type Department Care Team (Late st Contact Info) Description 01/15/2020 11:45 AM EDT Lab [facility] [address] [place] [address] Chronic kidney disease, stage V [...] Results * Iron (11/20/2020 3:06 PM EDT) [facility] Iron 107 37 - 145 mcg/dL 11/21/2020 12:13 AM EDT [facility] Blood Venipuncture / Unknown 11/20/2020 3:06 PM EDT 11/20/2020 3:54 PM EDT us Ming Low MD LAB BLOOD ORDERABLES Final Res ult [facility]
[address] [place] [address], [place] [phone] * (ABNORMAL) Urinalysis, Microscopic Only - Urine, Clean Catch (01/15/2020 12:06 PM EDT) RBC, UA 3-5(A) None Seen, 0-2 /HPF 01/15/2020 6:49 PM EDT [facility] WBC, UA 6-12(A) None Seen, 0-2 /HPF 01/15/2020 6:49 PM EDT [facility] Bacteria, UA 3+(A) None Seen /HPF 01/15/2020 6:49 PM EDT [facility] Squamous Epithelial Cells, UA 3-6(A) None Seen, 0-2 /HPF 01/15/2020 6:49 PM EDT [facility] Hyaline Casts, UA 0-2 None Seen /LPF 01/15/2020 6:49 PM EDT [facility] Methodology Automated Microscopy 01/15/2020 6:49 PM T [facility] Urine Urine specimen collection, clean catch / Unknown Collection / Unknown 01/15/2020 12:06 PM EDT 01/15/2020 1:26 PM EDT Ming Low MD URINE ORDERABLES Final Result [facility]
[address] [place] [address], * (ABNORMAL) Urinalysis without microscopic (no culture) - Urine, Clean Catch (01/15/2020 12:06 PM EDT) Color, UA Yellow Yellow, Straw 01/15/2020 6:45 PM EDT [facility] Appearance, UA Clear Clear 01/15/2020 6:45 PM EDT [facility] pH, UA 6.0 5.0 - 8.0 01/15/2020 6:45 PM EDT [facility] Specific Prospect, UA 1.016 1.005 - 1.030 01/15/2020 6:45 PM EDT [facility] Glucose, UA 100 mg/dL (Trace)(A) Negative 01/15/2020 6:45 PM EDT [facility] Ketones, UA Negative Negative 01/15/2020 6:45 PM EDT [facility] Bilirubin, UA Negative Negative 01/15/2020 6:45 PM EDT [facility] Blood, UA Small (1+)(A) Negative 01/15/2020 6:45 PM EDT [facility] Protein, UA >=300 mg/dL (3+)(A) Negative 01/15/2020 6:45 PM EDT [facility] Leuk Esterase, UA Negative Negative 01/15/2020 6:45 PM EDT [facility] Nitrite, UA Negative Negative 01/15/2020 6:45 PM EDT [facility] Urobilinogen, UA 0.2 E.U./dL 0.2 - 1.0 E.U./dL 01/15/2020 6:45 PM EDT [facility] Urine Urine specimen collection, clean catch / Unknown Collection / Unknown 01/15/2020 12:06 PM EDT 01/15/2020 1:26 PM EDT us Ming Low MD URINE ORDERABLES Final Result [facility]
[address] [place] [address], * (ABNORMAL) Manual Differential (01/15/2020 12:06 PM EDT) Neutrophil % 75.8 42.7 - 76.0 % 01/15/2020 7:36 PM EDT [facility] Lymphocyte % 22.2 19.6 - 45.3 % 01/15/2020 7:36 PM EDT [facility] Monocyte % 1.0(L) 5.0 - 12.0 % 01/15/2020 7:36 PM EDT [facility] Eosinophil % 1.0 0.3 - 6.2 % 01/15/2020 7:36 PM EDT [facility] Neutrophils Absolute 7.31(H) 1.70 - 7.00 10*3/mm3 01/15/2020 7:36 PM EDT [facility] Lymphocytes Absolute 2.14 0.70 - 3.10 10*3/mm3 01/15/2020 7:36 PM EDT [facility] Monocytes Absolute 0.10 0.10 - 0.90 10*3/mm3 01/15/2020 7:36 PM EDT [facility] Eosinophils Absolute 0.10 0.00 - 0.40 10*3/mm3 01/15/2020 7:36 PM EDT [facility] RBC Morphology Normal Normal 01/15/2020 7:36 PM EDT [facility] WBC Morphology Normal Normal 01/15/2020 7:36 PM EDT [facility] Platelet Morphology Normal Normal 01/15/2020 7:36 PM EDT [facility] Blood Venipuncture / Unknown 01/15/2020 12:06 PM EDT 01/15/2020 1:11 PM EDT us Ming Low MD LAB BLOOD ORDERABLES Final Res ult [facility]
[address] [place] [address], * (ABNORMAL) CBC Auto Differential (01/15/2020 12:06 PM EDT) WBC 9.65 3.40 - 10.80 10*3/mm3 01/15/2020 7:36 PM EDT [facility] RBC 3.74(L) 3.77 - 5.28 10*6/mm3 01/15/2020 7:36 PM EDT [facility] Hemoglobin 11.1(L) 12.0 - 15.9 g/dL 01/15/2020 7:36 PM EDT [facility] Hematocrit 33.1(L) 34.0 - 46.6 % 01/15/2020 7:36 PM EDT [facility] MCV 88.5 79.0 - 97.0 fL 01/15/2020 7:36 PM EDT [facility] MCH 29.7 26.6 - 33.0 pg 01/15/2020 7:36 PM EDT [facility] MCHC 33.5 31.5 - 35.7 g/dL 01/15/2020 7:36 PM EDT [facility] RDW 12.4 12.3 - 15.4 % 01/15/2020 7:36 PM EDT [facility] RDW-SD 40.4 37.0 - 54.0 fl 01/15/2020 7:36 PM EDT [facility] MPV 12.8(H) 6.0 - 12.0 fL 01/15/2020 7:36 PM EDT [facility] Platelets 292 140 - 450 10*3/mm3 01/15/2020 7:36 PM EDT [facility] Blood Venipuncture / Unknown 01/15/2020 12:06 PM EDT 01/15/2020 1:11 PM EDT Ming Low MD LAB BLOOD ORDERABLES Final Res ult [facility]
[address] [place] [address], * (ABNORMAL) Vitamin D 25 Hydroxy (01/15/2020 12:06 PM EDT) 25 Hydroxy, Vitamin D 18.4(L) 30.0 - 100.0 ng/ml 01/15/2020 7:38 PM EDT [facility] Blood Venipuncture / Unknown 01/15/2020 12:06 PM EDT 01/15/2020 1:10 PM EDT Narrative [facility] - 01/15/2020 7:38 PM EDT Reference Range for Total Vitamin D 25(OH) Deficiency <20.0 ng/mL Insufficiency 21-29 ng/mL Sufficiency 30-100 ng/mL Toxicity >100 ng/ml Results may be falsely increased if patient taking Biotin. Ming Low MD LAB BLOOD ORDERABLES Final Res ult [facility]
[address] [place] [address], * (ABNORMAL) Renal Function Panel (01/15/2020 12:06 PM EDT) [facility] Glucose 93 65 - 99 mg/dL 01/15/2020 7:15 PM EDT [facility] BUN 48(H) 6 - 20 mg/dL 01/15/2020 7:15 PM EDT [facility] Creatinine 4.29(H) 0.57 - 1.00 mg/dL 01/15/2020 7:15 PM EDT [facility] Sodium 136 136 - 145 mmol/L 01/15/2020 7:15 PM EDT [facility] Potassium 4.6 3.5 - 5.2 mmol/L 01/15/2020 7:15 PM EDT [facility] Chloride 108(H) 98 - 107 mmol/L 01/15/2020 7:15 PM EDT [facility] CO2 18.0(L) 22.0 - 29.0 mmol/L 01/15/2020 7:15 PM EDT [facility] Calcium 9.1 8.6 - 10.5 mg/dL 01/15/2020 7:15 PM EDT [facility] Albumin 4.00 3.50 - 5.20 g/dL 01/15/2020 7:15 PM EDT [facility] Phosphorus 3.9 2.5 - 4.5 mg/dL 01/15/2020 7:15 PM EDT [facility] Anion Gap 10.0 5.0 - 15.0 mmol/L 01/15/2020 7:15 PM EDT [facility] BUN/Creatinine Ratio 11.2 7.0 - 25.0 01/15/2020 7:15 PM EDT [facility] eGFR Non Amer 12(L) >60 mL/min/1.7 3 01/15/2020 7:15 PM EDT [facility] Comment:<15 Indicative of ki dney failure. eGFR Amer 01/15/2020 7:15 PM EDT [facility] Comment:<15 Indicative of ki dney failure. Blood Venipuncture / Unknown 01/15/2020 12:06 PM EDT 01/15/2020 1:10 PM EDT [facility] - 01/15/2020 7:15 PM EDT GFR Normal >60 Chronic Kidney Disease <60 Kidney Failure <15 us Ming Low MD LAB BLOOD ORDERABLES Final Res ult Performing Organization Address [facility] Co de Phone Number [facility]
[address] [place] [address], * (ABNORMAL) PTH, Intact (01/15/2020 12:06 PM EDT) PTH, Intact 373.0(H) 15.0 - 65.0 pg/mL 01/15/2020 8:03 PM EDT [facility] Blood Venipuncture / Unknown 01/15/2020 12:06 PM EDT 01/15/2020 1:10 PM EDT [facility] - 01/15/2020 8:03 PM EDT Results may be falsely decreased if patient taking Biotin. us Ming Low MD LAB BLOOD ORDERABLES Final Res ult Performing Organization Address [facility] Co de Phone Number [facility]
[address] [place] [address], * (ABNORMAL) Ferritin (01/15/2020 12:06 PM EDT) Ferritin 637.00(H) 13.00 - 150.00 ng/mL 01/15/2020 7:18 PM EDT [facility] Blood Venipuncture / Unknown 01/15/2020 12:06 PM EDT 01/15/2020 1:10 PM EDT [facility] - 01/15/2020 7:18 PM EDT Results may be falsely decreased if patient taking Biotin. us Ming Low MD LAB BLOOD ORDERABLES Final Res ult Performing Organization Address City/[facility]/ZIP Co de Phone Number [facility]
[address] [place] [address], [place] [phone] * (ABNORMAL) Iron Profile (01/15/2020 12:06 PM EDT) Iron 50 37 - 145 mcg/dL 01/15/2020 7:15 PM EDT [facility] Iron Saturation (TSAT) 19(L) 20 - 50 % 01/15/2020 7:15 PM EDT [facility] Transferrin 181(L) 200 - 360 mg/dL 01/15/2020 7:15 PM EDT [facility] TIBC 270(L) 298 - 536 mcg/dL 01/15/2020 7:15 PM EDT [facility] Blood Venipuncture / Unknown 01/15/2020 12:06 PM EDT 01/15/2020 1:10 PM EDT us Ming Low MD LAB BLOOD ORDERABLES Final Res ult Performing Organization Address [facility] Co de Phone Number [facility]
[address] [place] [address], [place] [phone] documented in this encounter Visit Diagnoses Diagnosis Chronic kidney disease, stage V Chronic kidney disease, Stage V documented in this encounter
--- OUTSIDE RECORDS SUMMARY | 2024-06-04 07:58 | XMS_ITS | Encounter Summary ---
[facility] Organization [facility] Address [address] [place] [address] Care Team Providers Care Business Support Associate Name Role Phone Jaquan Conley MD Primary Care Provider [phone] Reason for Visit * Reason Comments Leg Pain Encounter Details Date Type Department Care Team (Late st Contact Info) Description 05/15/2020 9:06 PM EDT - 05/16/2020 1:09 AM EDT Emergency [facility] [address] [place] [id number] Jaquan Arenas, DO Acute pain of [...] Care Everywhere. * Acute Knee Pain Adult (Slovenian) * Hypertension Adult (Slovenian) * Nonspecific Chest Pain Adult (Slovenian) documented in this encounter Medications at Time [...] ??? 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 No pertinent [...] CARDIOVASCULAR: Good Peripheral pulses. Good capillary refill. [place] and warm extremities. MUSCULOSKELETAL: No compartment syndrome. [...] Name Type Priority Associated Diagnoses Date /Time [place] Draw Lab STAT 05/15/2020 1 1:02 PM [...] Morphology Normal Normal 05/15/2020 11:51 PM EDT [facility] WBC Morphology Normal Normal 05/15/2020 11:51 PM EDT [facility] Platelet Estimate Adequate Normal 05/15/2020 11:51 PM EDT [facility] Blood Venipuncture / Unknown 05/15/2020 11:02 PM EDT 05/15/2020 11:15 PM EDT us Jaquan Arenas DO LAB BLOOD ORDERABLES Final Resu lt [facility]
[address] [place] [address], [place] [phone] * (ABNORMAL) CBC Auto Differential (05/15/2020 11:02 PM EDT) WBC 7.11 3.40 - 10.80 10*3/mm3 [facility] RBC 3.68(L) 3.77 - 5.28 10*6/mm3 05/15/2020 11:51 PM EDT [facility] Hemoglobin 11.4(L) 12.0 - 15.9 g/dL 05/15/2020 11:51 PM EDT [facility] Hematocrit 36.0 34.0 - 46.6 % 05/15/2020 11:51 PM EDT [facility] MCV 97.8(H) 79.0 - 97.0 fL 05/15/2020 11:51 PM EDT [facility] MCH 31.0 26.6 - 33.0 pg 05/15/2020 11:51 PM EDT [facility] MCHC 31.7 31.5 - 35.7 g/dL 05/15/2020 11:51 PM EDT [facility] RDW 13.1 12.3 - 15.4 % 05/15/2020 11:51 PM EDT [facility] RDW-SD 46.7 37.0 - 54.0 fl 05/15/2020 11:51 PM EDT [facility] MPV 13.1(H) 6.0 - 12.0 fL 05/15/2020 11:51 PM EDT [facility] Platelets 168 140 - 450 10*3/mm3 05/15/2020 11:51 PM EDT [facility] Neutrophil % 50.5 42.7 - 76.0 % 05/15/2020 11:51 PM EDT [facility] Lymphocyte % 37.6 19.6 - 45.3 % 05/15/2020 11:51 PM EDT [facility] Monocyte % 7.3 5.0 - 12.0 % 05/15/2020 11:51 PM EDT [facility] Eosinophil % 3.8 0.3 - 6.2 % 05/15/2020 11:51 PM EDT [facility] Basophil % 0.4 0.0 - 1.5 % 05/15/2020 11:51 PM EDT [facility] Immature Grans % 0.4 0.0 - 0.5 % 05/15/2020 11:51 PM EDT [facility] Neutrophils, Absolute 3.59 1.70 - 7.00 10*3/mm3 05/15/2020 11:51 PM EDT [facility] Lymphocytes, Absolute 2.67 0.70 - 3.10 10*3/mm3 05/15/2020 11:51 PM EDT [facility] Monocytes, Absolute 0.52 0.10 - 0.90 10*3/mm3 05/15/2020 11:51 PM EDT [facility] Eosinophils, Absolute 0.27 0.00 - 0.40 10*3/mm3 05/15/2020 11:51 PM EDT [facility] Basophils, Absolute 0.03 0.00 - 0.20 10*3/mm3 05/15/2020 11:51 PM EDT [facility] Immature Grans, Absolute 0.03 0.00 - 0.05 10*3/mm3 05/15/2020 11:51 PM EDT [facility] nRBC 0.0 0.0 - 0.2 /100 WBC 05/15/2020 11:51 PM EDT [facility] Blood Venipuncture / Unknown 05/15/2020 11:02 PM EDT 05/15/2020 11:15 PM EDT us Jaquan Arenas DO LAB BLOOD ORDERABLES Final Resu lt [facility]
[address] [place] [id number], * [facility], [facility] (05/15/2020 11:02 PM EDT) Extra Tube Hold for add-ons. 05/16/2020 12:15 AM EDT [facility] Comment:Auto resulted. Blood Venipuncture / Unknown 05/15/2020 11:02 PM EDT 05/15/2020 11:15 PM EDT us Jaquan Arenas DO LAB BLOOD ORDER ONLY Final Resu lt [facility]
[address] [place] [address], [place] [phone] * Lavender Top (05/15/2020 11:02 PM EDT) Extra Tube hold for add-on 05/16/2020 12:15 AM EDT [facility] Comment:Auto resulted Blood Venipuncture / Unknown 05/15/2020 11:02 PM EDT 05/15/2020 11:15 PM EDT us Jaquan Arenas DO LAB BLOOD ORDER ONLY Final Resu lt Performing Organization Address [facility] Co de Phone Number [facility]
[address] [place] [address], [place] [phone] * Green Top (Gel) (05/15/2020 11:02 PM EDT) Extra Tube Hold for add-ons. 05/16/2020 12:15 AM EDT [facility] Comment:Auto resulted. Blood Venipuncture / Unknown 05/15/2020 11:02 PM EDT 05/15/2020 11:15 PM EDT us Jaquan Arensa DO LAB BLOOD ORDER ONLY Final Resu lt Performing Organization Address [facility] Co de Phone Number [facility]
[address] [place] [address], [place] [phone] * Light Blue Top (05/15/2020 11:02 PM EDT) Extra Tube hold for add-on 05/16/2020 12:15 AM EDT [facility] Comment:Auto resulted Blood Venipuncture / Unknown 05/15/2020 11:02 PM EDT 05/15/2020 11:15 PM EDT us Jaquan Arenas DO LAB BLOOD ORDER ONLY Final Resu lt Performing Organization Address City/[facility]/ZIP Co de Phone Number [facility]
[address] [place] [address], * Troponin (05/15/2020 11:02 PM EDT) Troponin T <0.010 0.000 - 0.030 ng/mL 05/15/2020 11:36 PM EDT [facility] Blood Venipuncture / Unknown 05/15/2020 11:02 PM EDT 05/15/2020 11:15 PM EDT Narrative [facility] - 05/15/2020 11:36 PM EDT [...] ORDERABLES Final Resu lt Performing Organization Address [facility] Co de Phone Number [facility]
[address] [place] [address], [place] [phone] * (ABNORMAL) Comprehensive Metabolic Panel (05/15/2020 11:02 PM EDT) Glucose 111(H) 65 - 99 mg/dL 05/15/2020 11:34 PM EDT [facility] BUN 31(H) 6 - 20 mg/dL 05/15/2020 11:34 PM EDT [facility] Creatinine 4.11(H) 0.57 - 1.00 mg/dL 05/15/2020 11:34 PM EDT [facility] Sodium 143 136 - 145 mmol/L 05/15/2020 11:34 PM EDT [facility] Potassium 4.7 3.5 - 5.2 mmol/L 05/15/2020 11:34 PM EDT [facility] Chloride 113(H) 98 - 107 mmol/L 05/15/2020 11:34 PM EDT [facility] CO2 19.3(L) 22.0 - 29.0 mmol/L 05/15/2020 11:34 PM EDT [facility] Calcium 9.0 8.6 - 10.5 mg/dL 05/15/2020 11:34 PM EDT [facility] Total Protein 6.8 6.0 - 8.5 g/dL 05/15/2020 11:34 PM EDT [facility] Albumin 4.00 3.50 - 5.20 g/dL 05/15/2020 11:34 PM EDT [facility] ALT (SGPT) 11 1 - 33 U/L 05/15/2020 11:34 PM EDT [facility] AST (SGOT) 12 1 - 32 U/L 05/15/2020 11:34 PM EDT [facility] Alkaline Phosphatase 87 39 - 117 U/L 05/15/2020 11:34 PM EDT [facility] Total Bilirubin 0.2 0.0 - 1.2 mg/dL 05/15/2020 11:34 PM EDT [facility] eGFR Non Amer 13(L) >60 mL/min/1.7 3 05/15/2020 11:34 PM EDT [facility] Comment:<15 Indicative of ki dney failure. eGFR Amer 05/15/2020 11:34 PM T [facility] Comment:<15 Indicative of ki dney failure. Globulin 2.8 gm/dL 05/15/2020 11:34 PM EDT [facility] A/G Ratio 1.4 g/dL 05/15/2020 11:34 PM T [facility] BUN/Creatinine Ratio 7.5 7.0 - 25.0 05/15/2020 11:34 PM T [facility] Anion Gap 10.7 5.0 - 15.0 mmol/L 05/15/2020 11:34 PM [facility] Blood Venipuncture / Unknown 05/15/2020 11:02 PM EDT 05/15/2020 11:15 PM EDT Narrative [facility] - 05/15/2020 11:34 PM EDT GFR Normal >60 Chronic Kidney Disease <60 Kidney Failure <15 us Jaquan Arenas DO LAB BLOOD ORDERABLES Final Resu lt [facility]
[address] [place] [address], * XR Chest 1 View (05/15/2020 10:29 [...] [id number] documented in this encounter Care Teams Business Support Associate Relationship Specialty Start Date End Date Jaquan Conley MD [address] [place] [id number] PCP - General Internal Medicine 04/23/20 02/14/23 documented as of this encounter
--- OUTSIDE RECORDS SUMMARY | 2024-06-04 07:58 | XMS_ITS | Encounter Summary ---
[facility] Address [address] [place] [address] Care Team Providers Care Engineering Intern Name Role Phone Unavailable Primary Care Provider Unavailabl e Encounter Details Date Type Department Care Team (Late st Contact Info) Description 06/22/2019 7:40 AM EST Lab [facility] [address] [place] [address] Chronic kidney disease, stage IV [...] - 76.0 % 06/22/2019 12:31 PM EST [facility] Lymphocyte % 27.4 19.6 - 45.3 % 06/22/2019 12:31 PM EST [facility] Monocyte % 3.2(L) 5.0 - 12.0 % 06/22/2019 12:31 PM EST [facility] Eosinophil % 2.1 0.3 - 6.2 % 06/22/2019 12:31 PM [facility] Neutrophils Absolute 5.01 1.70 - 7.00 10*3/mm3 06/22/2019 12:31 PM [facility] Lymphocytes Absolute 2.04 0.70 - 3.10 10*3/mm3 06/22/2019 12:31 PM [facility] Monocytes Absolute 0.24 0.10 - 0.90 10*3/mm3 06/22/2019 12:31 PM [facility] Eosinophils Absolute 0.16 0.00 - 0.40 10*3/mm3 06/22/2019 12:31 PM [facility] RBC Morphology Normal Normal 06/22/2019 12:31 PM [facility] Smudge Cells Slight/1+ None Seen 06/22/2019 12:31 PM [facility] Platelet Morphology Normal Normal 06/22/2019 12:31 PM [facility] Blood Venipuncture / Unknown 06/22/2019 7:41 AM EST 06/22/2019 8:19 AM EST us Ming Low MD LAB BLOOD ORDERABLES Final Res ult [facility]
[address] [place] [address], * Urinalysis, Microscopic Only - Urine, Clean Catch (06/22/2019 7:41 AM EST) RBC, UA 0-2 None Seen, 0-2 /HPF 06/22/2019 6:17 PM [facility] WBC, UA 0-2 None Seen, 0-2 /HPF 06/22/2019 6:17 PM [facility] Bacteria, UA None Seen None Seen /HPF 06/22/2019 6:17 PM [facility] Squamous Epithelial Cells, UA 0-2 None Seen, 0-2 /HPF 06/22/2019 6:17 PM [facility] Hyaline Casts, UA None Seen None Seen /LPF 06/22/2019 6:17 PM [facility] Methodology Automated Microscopy 06/22/2019 6:17 PM [facility] Urine Urine specimen collection, clean catch / Unknown Collection / Unknown 06/22/2019 7:41 AM EST 06/22/2019 8:59 AM EST Ming Low MD URINE ORDERABLES Final Result [facility]
[address] [place] [address], [place] [phone] * (ABNORMAL) Urinalysis without microscopic (no culture) - Urine, Clean Catch (06/22/2019 7:41 AM EST) Color, UA Yellow Yellow, Straw 06/22/2019 6:10 PM [facility] Appearance, UA Clear Clear 06/22/2019 6:10 PM [facility] pH, UA 7.0 5.0 - 8.0 06/22/2019 6:10 PM [facility] Specific Mitchell, UA 1.010 1.005 - 1.030 06/22/2019 6:10 PM [facility] Glucose, UA 250 mg/dL (1+)(A) Negative 06/22/2019 6:10 PM [facility] Ketones, UA Negative Negative 06/22/2019 6:10 PM [facility] Bilirubin, UA Negative Negative 06/22/2019 6:10 PM [facility] Blood, UA Negative Negative 06/22/2019 6:10 PM [facility] Protein, UA 100 mg/dL (2+)(A) Negative 06/22/2019 6:10 PM [facility] Leuk Esterase, UA Negative Negative 06/22/2019 6:10 PM [facility] Nitrite, UA Negative Negative 06/22/2019 6:10 PM [facility] Urobilinogen, UA 0.2 E.U./dL 0.2 - 1.0 E.U./dL 06/22/2019 6:10 PM [facility] Urine Urine specimen collection, clean catch / Unknown Collection / Unknown 06/22/2019 7:41 AM EST 06/22/2019 8:59 AM EST Ming Low MD URINE ORDERABLES Final Result [facility]
[address] [place] [address], * (ABNORMAL) CBC Auto Differential (06/22/2019 7:41 AM EST) WBC 7.43 3.40 - 10.80 10*3/mm3 06/22/2019 12:31 PM [facility] RBC 3.75(L) 3.77 - 5.28 10*6/mm3 06/22/2019 12:31 PM [facility] Hemoglobin 10.6(L) 12.0 - 15.9 g/dL 06/22/2019 12:31 PM [facility] Hematocrit 33.2(L) 34.0 - 46.6 % 06/22/2019 12:31 PM [facility] MCV 88.5 79.0 - 97.0 fL 06/22/2019 12:31 PM [facility] MCH 28.3 26.6 - 33.0 pg 06/22/2019 12:31 PM [facility] MCHC 31.9 31.5 - 35.7 g/dL 06/22/2019 12:31 PM [facility] RDW 13.3 12.3 - 15.4 % 06/22/2019 12:31 PM [facility] RDW-SD 43.0 37.0 - 54.0 fl 06/22/2019 12:31 PM [facility] MPV 13.9(H) 6.0 - 12.0 fL 06/22/2019 12:31 PM [facility] Platelets 205 140 - 450 10*3/mm3 06/22/2019 12:31 PM EST [facility] Blood Venipuncture / Unknown 06/22/2019 7:41 AM EST 06/22/2019 8:19 AM EST us Ming Low MD LAB BLOOD ORDERABLES Final Res ult Performing Organization Address [facility] Phone Number [facility]
[address] [place] [address], * (ABNORMAL) Vitamin D 25 Hydroxy (06/22/2019 7:41 AM EST) 25 Hydroxy, Vitamin D 16.0(L) 30.0 - 100.0 ng/ml 06/22/2019 12:28 PM EST [facility] Blood Venipuncture / Unknown 06/22/2019 7:41 AM EST 06/22/2019 8:19 AM EST Narrative [facility] - 06/22/2019 12:28 PM EST Reference Range for Total Vitamin D 25(OH) Deficiency <20.0 ng/mL Insufficiency 21-29 ng/mL Sufficiency 30-100 ng/mL Toxicity >100 ng/ml us Ming Low MD LAB BLOOD ORDERABLES Final Res ult Performing Organization Address [facility] Co de Phone Number [facility]
[address] [place] [address], * (ABNORMAL) Renal Function Panel (06/22/2019 7:41 AM EST) Glucose 284(H) 65 - 99 mg/dL 06/22/2019 12:22 PM EST [facility] BUN 51(H) 6 - 20 mg/dL 06/22/2019 12:22 PM EST [facility] Creatinine 4.07(H) 0.57 - 1.00 mg/dL 06/22/2019 12:22 PM EST [facility] Sodium 138 136 - 145 mmol/L 06/22/2019 12:22 PM [facility] Potassium 4.8 3.5 - 5.2 mmol/L 06/22/2019 12:22 PM [facility] Chloride 99 98 - 107 mmol/L 06/22/2019 12:22 PM [facility] CO2 23.7 22.0 - 29.0 mmol/L 06/22/2019 12:22 PM [facility] Calcium 8.2(L) 8.6 - 10.5 mg/dL 06/22/2019 12:22 PM [facility] Albumin 4.00 3.50 - 5.20 g/dL 06/22/2019 12:22 PM [facility] Phosphorus 5.0(H) 2.5 - 4.5 mg/dL 06/22/2019 12:22 PM [facility] Anion Gap 15.3(H) 5.0 - 15.0 mmol/L 06/22/2019 12:22 PM [facility] BUN/Creatinine Ratio 12.5 7.0 - 25.0 06/22/2019 12:22 PM EST [facility] eGFR Non Amer 13(L) >60 mL/min/1.7 3 06/22/2019 12:22 PM EST [facility] Comment:<15 Indicative of ki dney failure. eGFR Amer 06/22/2019 12:22 PM [facility] Comment:<15 Indicative of ki dney failure. Blood Venipuncture / Unknown 06/22/2019 7:41 AM EST 06/22/2019 8:19 AM EST Narrative [facility] - 06/22/2019 12:22 PM EST GFR Normal >60 Chronic Kidney Disease <60 Kidney Failure <15 us Ming Low MD LAB BLOOD ORDERABLES Final Res ult [facility]
[address] [place] [address], * Protein, Urine, Random - Urine, Clean Catch (06/22/2019 7:41 AM EST) Total Protein, Urine 90.0 mg/dL 06/22/2019 7:24 PM EST [facility] Urine Urine specimen collection, clean catch / Unknown Collection / Unknown 06/22/2019 7:41 AM EST 06/22/2019 8:59 AM EST Narrative [facility] - 06/22/2019 7:24 PM EST Reference intervals for random urine have not been established. Clinical usage is dependent upon physician's interpretation in combination with other laboratory tests. us Ming Low MD URINE ORDERABLES Final Result Performing Organization Address [facility] Phone Number [facility]
[address] [place] [address], * (ABNORMAL) PTH, Intact (06/22/2019 7:41 AM EST) PTH, Intact 339.0(H) 15.0 - 65.0 pg/mL 06/22/2019 12:20 PM EST [facility] Blood Venipuncture / Unknown 06/22/2019 7:41 AM EST 06/22/2019 8:19 AM EST us Ming Low MD LAB BLOOD ORDERABLES Final Res ult Performing Organization Address [facility] Phone Number [facility]
[address] [place] [address], * Ferritin (06/22/2019 7:41 AM EST) Ferritin 78.20 13.00 - 150.00 ng/mL 06/22/2019 12:28 PM EST [facility] Blood Venipuncture / Unknown 06/22/2019 7:41 AM EST 06/22/2019 8:19 AM EST us Ming Low MD LAB BLOOD ORDERABLES Final Res ult Performing Organization Address [facility] Co ut Phone Number [facility]
[address] [place] [address], [place] [phone] * Creatinine, Urine, Random - Urine, Clean Catch (06/22/2019 7:41 AM EST) Creatinine, Urine 28.5 mg/dL 06/22/2019 7:24 PM EST [facility] Urine Urine specimen collection, clean catch / Unknown Collection / Unknown 06/22/2019 7:41 AM EST 06/22/2019 8:59 AM EST Narrative [facility] - 06/22/2019 7:24 PM EST Reference intervals for random urine have not been established. Clinical usage is dependent upon physician's interpretation in combination with other laboratory tests. us Ming Low MD URINE ORDERABLES Final Result Performing Organization Address [facility] Phone Number [facility]
[address] [place] [id number], * (ABNORMAL) Iron Profile (06/22/2019 7:41 AM EST) Iron 45 37 - 145 mcg/dL 06/22/2019 12:22 PM EST [facility] Iron Saturation (TSAT) 10(L) 20 - 50 % 06/22/2019 12:22 PM EST [facility] Transferrin 297 200 - 360 mg/dL 06/22/2019 12:22 PM EST [facility] TIBC 443 298 - 536 mcg/dL 06/22/2019 12:22 PM EST [facility] Blood Venipuncture / Unknown 06/22/2019 7:41 AM EST 06/22/2019 8:19 AM EST us Ming Low MD LAB BLOOD ORDERABLES Final Res ult Performing Organization Address [facility] Co de Phone Number [facility]
[address] [place] [address], documented in this encounter Visit Diagnoses Diagnosis Chronic kidney disease, stage IV (severe) Chronic kidney disease, Stage IV (severe) documented in this encounter
--- OUTSIDE RECORDS SUMMARY | 2024-06-04 07:58 | XMS_ITS | Encounter Summary ---
[facility] Address [address] [place] [address] Care Team Providers Care Bank Examiner Name Role Phone Unavailable Primary Care Provider Unavailabl e Encounter Details Date Type Department Care Team (Late st Contact Info) Description 12/03/2019 9:40 AM EDT Lab [facility] [address] [place] [address] Anemia, unspecified type; CKD stage [...] 42.7 - 76.0 % 12/03/2019 7:33 PM [facility] Lymphocyte % 29.3 19.6 - 45.3 % 12/03/2019 7:33 PM EDT [facility] Monocyte % 2.0(L) 5.0 - 12.0 % [facility] Eosinophil % 6.1 0.3 - 6.2 % 12/03/2019 7:33 PM T [facility] Neutrophils Absolute 5.51 1.70 - 7.00 10*3/mm3 12/03/2019 7:33 PM T [facility] Lymphocytes Absolute 2.58 0.70 - 3.10 10*3/mm3 12/03/2019 7:33 PM EDT [facility] Monocytes Absolute 0.18 0.10 - 0.90 10*3/mm3 12/03/2019 7:33 PM [facility] Eosinophils Absolute 0.54(H) 0.00 - 0.40 10*3/mm3 12/03/2019 7:33 PM EDT [facility] Anisocytosis Mod/2+ None Seen 12/03/2019 7:33 PM EDT [facility] WBC Morphology Normal Normal 12/03/2019 7:33 PM EDT [facility] Platelet Morphology Normal Normal 12/03/2019 7:33 PM EDT [facility] Blood Venipuncture / Unknown 12/03/2019 9:42 AM EDT 12/03/2019 10:45 AM EDT Ibrahima Talamantes MD LAB BLOOD ORDERABLES F inal Result [facility]
[address] [place] [address], * (ABNORMAL) CBC Auto Differential (12/03/2019 9:42 AM EDT) WBC 8.80 3.40 - 10.80 10*3/mm3 12/03/2019 7:33 PM EDT [facility] RBC 3.19(L) 3.77 - 5.28 10*6/mm3 12/03/2019 7:33 PM EDT [facility] Hemoglobin 9.7(L) 12.0 - 15.9 g/dL 12/03/2019 7:33 PM EDT [facility] Hematocrit 28.8(L) 34.0 - 46.6 % 12/03/2019 7:33 PM EDT [facility] MCV 90.3 79.0 - 97.0 fL 12/03/2019 7:33 PM EDT [facility] MCH 30.4 26.6 - 33.0 pg 12/03/2019 7:33 PM EDT [facility] MCHC 33.7 31.5 - 35.7 g/dL 12/03/2019 7:33 PM EDT [facility] RDW 11.8(L) 12.3 - 15.4 % 12/03/2019 7:33 PM EDT [facility] RDW-SD 38.6 37.0 - 54.0 fl 12/03/2019 7:33 PM EDT [facility] MPV 13.2(H) 6.0 - 12.0 fL 12/03/2019 7:33 PM EDT [facility] Platelets 222 140 - 450 10*3/mm3 12/03/2019 7:33 PM EDT [facility] Blood Venipuncture / Unknown 12/03/2019 9:42 AM EDT 12/03/2019 10:45 AM EDT us Ibrahima Talamantes MD LAB BLOOD ORDERABLES F inal Result Performing Organization Address [facility]/ZIP Co de Phone Number [facility]
[address] [place] [address], * Protein, Urine, Random - Urine, Clean Catch (12/03/2019 9:42 AM EDT) Total Protein, Urine 77.0 mg/dL 12/03/2019 7:50 PM EDT [facility] Urine Urine specimen collection, clean catch / Unknown Collection / Unknown 12/03/2019 9:42 AM EDT 12/03/2019 10:45 AM EDT Narrative [facility] - 12/03/2019 7:50 PM EDT Reference intervals for random urine have not been established. Clinical usage is dependent upon physician's interpretation in combination with other laboratory tests. us Ibrahima Talamantes MD URINE ORDERABLES Final Result Performing Organization Address [facility] Co de Phone Number [facility]
[address] [place] [address], [place] [phone] * (ABNORMAL) Renal Function Panel (12/03/2019 9:42 AM EDT) Glucose 188(H) 65 - 99 mg/dL 12/03/2019 7:38 PM EDT [facility] BUN 66(H) 6 - 20 mg/dL 12/03/2019 7:38 PM EDT [facility] Creatinine 4.07(H) 0.57 - 1.00 mg/dL 12/03/2019 7:38 PM T [facility] Sodium 139 136 - 145 mmol/L 12/03/2019 7:38 PM T [facility] Potassium 4.8 3.5 - 5.2 mmol/L 12/03/2019 7:38 PM [facility] Chloride 103 98 - 107 mmol/L 12/03/2019 7:38 PM [facility] CO2 20.5(L) 22.0 - 29.0 mmol/L 12/03/2019 7:38 PM [facility] Calcium 7.1(L) 8.6 - 10.5 mg/dL 12/03/2019 7:38 PM [facility] Albumin 3.70 3.50 - 5.20 g/dL 12/03/2019 7:38 PM [facility] Phosphorus 7.1(H) 2.5 - 4.5 mg/dL 12/03/2019 7:38 PM [facility] Anion Gap 15.5(H) 5.0 - 15.0 mmol/L 12/03/2019 7:38 PM [facility] BUN/Creatinine Ratio 16.2 7.0 - 25.0 12/03/2019 7:38 PM [facility] eGFR Non Amer 13(L) >60 mL/min/1.7 3 12/03/2019 7:38 PM [facility] Comment:<15 Indicative of ki dney failure. eGFR Amer 12/03/2019 7:38 PM [facility] Comment:<15 Indicative of ki dney failure. Blood Venipuncture / Unknown 12/03/2019 9:42 AM EDT 12/03/2019 10:44 AM EDT [facility] - 12/03/2019 7:38 PM EDT GFR Normal >60 Chronic Kidney Disease <60 Kidney Failure <15 Ibrahima Talamantes MD LAB BLOOD ORDERABLES F inal Result Performing Organization Address [facility] Co de Phone Number [facility]
[address] [place] [address], * Creatinine, Urine, Random - Urine, Clean Catch (12/03/2019 9:42 AM EDT) Creatinine, Urine 27.8 mg/dL 12/03/2019 7:50 PM EDT [facility] Urine Urine specimen collection, clean catch / Unknown Collection / Unknown 12/03/2019 9:42 AM EDT 12/03/2019 10:45 AM EDT Narrative [facility] - 12/03/2019 7:50 PM EDT Reference intervals for random urine have not been established. Clinical usage is dependent upon physician's interpretation in combination with other laboratory tests. us Ibrahima Talamantes MD URINE ORDERABLES Final Result Performing Organization Address [facility] Co de Phone Number [facility]
[address] [place] [address], documented in this encounter Visit Diagnoses Diagnosis Anemia, unspecified type CKD stage G5/A3, GFR <15 and albumin creatinine ratio >300 mg/g documented in this encounter
--- OUTSIDE RECORDS SUMMARY | 2024-06-04 07:58 | XMS_ITS | Encounter Summary ---
[facility] Address [address] [id number] Care Team Providers Care Outside Residential Sales Professional Name Role Phone Unavailable Primary Care Provider Unavailabl e Reason for Visit * Reason Comments Flu Symptoms Encounter Details Date Type Department Care Team (Late st Contact Info) Description 09/14/2019 5:20 PM EST - 09/14/2019 6:24 PM EST Emergency [facility] [address] [place] [id number] Krissy Bowman MD Viral upper respiratory [...] Care Everywhere. * Upper Respiratory Infection Adult [id number] (Cameroonian) * Cough Adult (Cameroonian) documented in this encounter Medications at Time [...] for 3 days. History provided by: Patient belt builder helper used: No URI Presenting symptoms: congestion and [...] SECTION 10/17/2012 ??? SECTION ??? INDUCED 2006 [facility] History reviewed. No pertinent family [...] For this patient encounter, I reviewed the SERVICE COORDINATOR or PA documentation, treatment plan, and medical [...] EIA Negative Negative 09/14/2019 5:45 PM EST [facility] Influenza B Ag, EIA Negative Negative 09/14/2019 5:45 PM EST [facility] Swab Nasopharyngeal structure / Unknown Collection / Unknown 09/14/2019 5:25 PM EST 09/14/2019 5:28 PM EST us Krissy Bowman MD MICROBIOLOGY - GENERAL ORDERABLES Final Result [facility]
[address] [id number], documented in this encounter Visit Diagnoses Diagnosis Viral upper respiratory tract infection- Primary Acute upper respiratory infections of unspecified site documented in this encounter
--- OUTSIDE RECORDS SUMMARY | 2024-06-04 07:58 | XMS_ITS | Encounter Summary ---
Author Organization [facility] Address [address] [place] [address] Care Team Providers Care Sole Assessor Name Role Phone Jaquan Conley MD Primary Care Provider [phone] Encounter Details Date Type Department Care Team (Late st Contact Info) Description 04/23/2020 10:25 AM EDT Lab [facility] [address] [place] [address] Chronic kidney disease, stage V [...] Seen, 0-2 /HPF 04/23/2020 6:42 PM EDT [facility] WBC, UA 0-2 None Seen, 0-2 /HPF 04/23/2020 6:42 PM EDT [facility] Bacteria, UA 2+(A) None Seen /HPF 04/23/2020 6:42 PM EDT [facility] Squamous Epithelial Cells, UA 3-6(A) None Seen, 0-2 /HPF 04/23/2020 6:42 PM EDT [facility] Hyaline Casts, UA 0-2 None Seen /LPF 04/23/2020 6:42 PM EDT [facility] Methodology Automated Microscopy 04/23/2020 6:42 PM EDT [facility] Urine Urine specimen collection, clean catch / Unknown Collection / Unknown 04/23/2020 10:33 AM EDT 04/23/2020 11:13 AM EDT us Mukul Stevens MD URINE ORDERABLES Final Result [facility]
[address] [place] [address], * (ABNORMAL) Urinalysis without microscopic (no culture) - Urine, Clean Catch (04/23/2020 10:33 AM EDT) Color, UA Yellow Yellow, Straw 04/23/2020 6:36 PM EDT [facility] Appearance, UA Clear Clear 04/23/2020 6:36 PM EDT [facility] pH, UA 5.5 5.0 - 8.0 04/23/2020 6:36 PM EDT [facility] Specific [place], UA 1.012 1.005 - 1.030 04/23/2020 6:36 PM EDT [facility] Glucose, UA Negative Negative 04/23/2020 6:36 PM EDT [facility] Ketones, UA Negative Negative 04/23/2020 6:36 PM EDT [facility] Bilirubin, UA Negative Negative 04/23/2020 6:36 PM EDT [facility] Blood, UA Negative Negative 04/23/2020 6:36 PM EDT [facility] Protein, UA >=300 mg/dL (3+)(A) Negative 04/23/2020 6:36 PM EDT [facility] Leuk Esterase, UA Negative Negative 04/23/2020 6:36 PM EDT [facility] Nitrite, UA Negative Negative 04/23/2020 6:36 PM EDT [facility] Urobilinogen, UA 0.2 E.U./dL 0.2 - 1.0 E.U./dL 04/23/2020 6:36 PM EDT [facility] Urine Urine specimen collection, clean catch / Unknown Collection / Unknown 04/23/2020 10:33 AM EDT 04/23/2020 11:13 AM EDT Mukul Stevens MD URINE ORDERABLES Final Result [facility]
[address] [place] [address], * (ABNORMAL) Vitamin D 25 Hydroxy (04/23/2020 10:33 AM EDT) [facility] 25 Hydroxy, Vitamin D 29.5(L) 30.0 - 100.0 ng/ml 04/23/2020 7:00 PM EDT [facility] Blood Venipuncture / Unknown 04/23/2020 10:33 AM EDT 04/23/2020 10:50 AM EDT Narrative [facility] - 04/23/2020 7:00 PM EDT Reference Range for Total Vitamin D 25(OH) Deficiency <20.0 ng/mL Insufficiency 21-29 ng/mL Sufficiency 30-100 ng/mL Toxicity >100 ng/ml Results may be falsely increased if patient taking Biotin. Mukul Stevens MD LAB BLOOD ORDERABLES F inal Result [facility]
[address] [place] [address], * (ABNORMAL) Renal Function Panel (04/23/2020 10:33 AM EDT) [facility] Glucose 79 65 - 99 mg/dL 04/23/2020 7:08 PM EDT [facility] BUN 32(H) 6 - 20 mg/dL 04/23/2020 7:08 PM EDT [facility] Creatinine 3.92(H) 0.57 - 1.00 mg/dL 04/23/2020 7:08 PM EDT [facility] Sodium 142 136 - 145 mmol/L 04/23/2020 7:08 PM EDT [facility] Potassium 4.9 3.5 - 5.2 mmol/L 04/23/2020 7:08 PM EDT [facility] Chloride 111(H) 98 - 107 mmol/L 04/23/2020 7:08 PM EDT [facility] CO2 20.8(L) 22.0 - 29.0 mmol/L 04/23/2020 7:08 PM EDT [facility] Calcium 9.0 8.6 - 10.5 mg/dL 04/23/2020 7:08 PM EDT [facility] Albumin 4.10 3.50 - 5.20 g/dL 04/23/2020 7:08 PM EDT [facility] Phosphorus 3.9 2.5 - 4.5 mg/dL 04/23/2020 7:08 PM EDT [facility] Anion Gap 10.2 5.0 - 15.0 mmol/L 04/23/2020 7:08 PM EDT [facility] BUN/Creatinine Ratio 8.2 7.0 - 25.0 04/23/2020 7:08 PM EDT [facility] eGFR Non Amer 13(L) >60 mL/min/1.7 3 04/23/2020 7:08 PM EDT [facility] Comment:<15 Indicative of ki dney failure. eGFR Amer 04/23/2020 7:08 PM EDT [facility] Comment:<15 Indicative of ki dney failure. Blood Venipuncture / Unknown 04/23/2020 10:33 AM EDT 04/23/2020 10:50 AM EDT Narrative [facility] - 04/23/2020 7:08 PM EDT GFR Normal >60 Chronic Kidney Disease <60 Kidney Failure <15 Mukul Stevens MD LAB BLOOD ORDERABLES F inal Result [facility]
[address] [place] [address], * Protein, Urine, Random - Urine, Clean Catch (04/23/2020 10:33 AM EDT) Total Protein, Urine 138.0 mg/dL 04/23/2020 7:38 PM EDT [facility] Urine Urine specimen collection, clean catch / Unknown Collection / Unknown 04/23/2020 10:33 AM EDT 04/23/2020 11:13 AM EDT [facility] - 04/23/2020 7:38 PM EDT Reference intervals for random urine have not been established. Clinical usage is dependent upon physician's interpretation in combination with other laboratory tests. us Mukul Stevens MD URINE ORDERABLES Final Result Performing Organization Address [facility] Co de Phone Number [facility]
[address] [place] [address], [place] [phone] * (ABNORMAL) PTH, Intact (04/23/2020 10:33 AM EDT) PTH, Intact 314.0(H) 15.0 - 65.0 pg/mL 04/23/2020 6:59 PM EDT [facility] Blood Venipuncture / Unknown 04/23/2020 10:33 AM EDT 04/23/2020 10:50 AM EDT [facility] - 04/23/2020 6:59 PM EDT Results may be falsely decreased if patient taking Biotin. us Mukul Stevens MD LAB BLOOD ORDERABLES F inal Result Performing Organization Address [facility] de Phone Number [facility]
[address] [place] [address], [place] [phone] * Creatinine, Urine, Random - Urine, Clean Catch (04/23/2020 10:33 AM EDT) Creatinine, Urine 80.8 mg/dL 04/23/2020 7:38 PM EDT [facility] Urine Urine specimen collection, clean catch / Unknown Collection / Unknown 04/23/2020 10:33 AM EDT 04/23/2020 11:13 AM EDT [facility] - 04/23/2020 7:38 PM EDT Reference intervals for random urine have not been established. Clinical usage is dependent upon physician's interpretation in combination with other laboratory tests. us Mukul Stevens MD URINE ORDERABLES Final Result [facility]
[address] [place] [address], documented in this encounter Visit Diagnoses Diagnosis Chronic kidney disease, stage V Chronic kidney disease, Stage V documented in this encounter Care Teams Sole Assessor Relationship Specialty Start Date End Date Jaquan Conley MD [address] [place] [id number] PCP - General Internal Medicine 04/23/20 02/14/23 documented as of this encounter
--- OUTSIDE RECORDS SUMMARY | 2024-06-04 07:58 | XMS_ITS | Encounter Summary ---
Author Organization [facility] Address [address] [place] [id number] Care Team Providers Care Machine Sizer Name Role Phone Unavailable Primary Care Provider Unavailabl e Reason for Visit * Episode Based Medications (Routine) - Closed Specialty Diagnoses / Procedures Referred By Contac t Referred To Contact Diagnoses Chronic kidney disease, stage IV (severe) Anemia due to chronic kidney disease, unspecified CKD stage Procedures OR INJ FERRIC [facility] 1MG Kamilla Mccullough, PharmD [address] [place] [address] Phone: tel: Referral ID Status Reason Start Date Expiration Date Visits Re quested Visits Authorized [id number] Closed 07/06/2019 08/05/2019 1 1 Encounter Details Date Type Department Care Team (Latest Contact Info) Description 07/16/2019 8:09 AM EST - 07/16/2019 11:59 PM [facility] Hospital Encounter [facility] [address] [facility] [place] [address] Anemia due to chronic kidney disease, unspecified [...]
--- OUTSIDE RECORDS SUMMARY | 2024-06-04 07:58 | XMS_ITS | Encounter Summary ---
Author Organization [facility] Address [address] [place] [id number] Care Team Providers Care Security Installation Technician Name Role Phone Unavailable Primary Care Provider Unavailabl e Reason for Visit * Reason Comments Finger Injury Encounter Details Date Type Department Care Team (Late st Contact Info) Description 04/08/2020 2:54 PM EDT - 04/08/2020 3:29 PM EDT Emergency [facility] EMERGENCY DEPARTMENT [address] [place] [id number] Jaquan Arenas, Contusion of left little [...] be sent through Care Everywhere. * Contusion (Djiboutian) documented in this encounter Medications at Time [...] For this patient encounter, I reviewed the ADVERTISEMENT COMPOSITOR or PA documentation, treatment plan, and medical [...]
--- OUTSIDE RECORDS SUMMARY | 2024-06-04 07:58 | XMS_ITS | Encounter Summary ---
Author Organization [facility] Address [address] [place] [address] Care Team Providers Care Physician Industrial Name Role Phone Unavailable Primary Care Provider Unavailabl e Encounter Details Date Type Department Care Team (Late st Contact Info) Description 09/21/2019 8:45 AM EST Lab [facility] [address] [place] [address] Anemia, unspecified type Social History [...] 3.40 - 10.80 10*3/mm3 09/21/2019 7:02 PM [facility] RBC 3.22(L) 3.77 - 5.28 10*6/mm3 09/21/2019 7:02 PM [facility] Hemoglobin 10.1(L) 12.0 - 15.9 g/dL 09/21/2019 7:02 PM [facility] Hematocrit 30.0(L) 34.0 - 46.6 % 09/21/2019 7:02 PM [facility] MCV 93.2 79.0 - 97.0 fL 09/21/2019 7:02 PM [facility] MCH 31.4 26.6 - 33.0 pg 09/21/2019 7:02 PM [facility] MCHC 33.7 31.5 - 35.7 g/dL 09/21/2019 7:02 PM [facility] RDW 13.5 12.3 - 15.4 % 09/21/2019 7:02 PM [facility] RDW-SD 46.1 37.0 - 54.0 fl 09/21/2019 7:02 PM [facility] MPV 13.5(H) 6.0 - 12.0 fL 09/21/2019 7:02 PM [facility] Platelets 215 140 - 450 10*3/mm3 09/21/2019 7:02 PM [facility] Neutrophil % 69.3 42.7 - 76.0 % 09/21/2019 7:02 PM [facility] Lymphocyte % 21.6 19.6 - 45.3 % 09/21/2019 7:02 PM [facility] Monocyte % 5.3 5.0 - 12.0 % 09/21/2019 7:02 PM [facility] Eosinophil % 2.8 0.3 - 6.2 % 09/21/2019 7:02 PM [facility] Basophil % 0.4 0.0 - 1.5 % 09/21/2019 7:02 PM [facility] Immature Grans % 0.6(H) 0.0 - 0.5 % 09/21/2019 7:02 PM [facility] Neutrophils, Absolute 7.47(H) 1.70 - 7.00 10*3/mm3 09/21/2019 7:02 PM [facility] Lymphocytes, Absolute 2.32 0.70 - 3.10 10*3/mm3 09/21/2019 7:02 PM [facility] Monocytes, Absolute 0.57 0.10 - 0.90 10*3/mm3 09/21/2019 7:02 PM [facility] Eosinophils, Absolute 0.30 0.00 - 0.40 10*3/mm3 09/21/2019 7:02 PM [facility] Basophils, Absolute 0.04 0.00 - 0.20 10*3/mm3 09/21/2019 7:02 PM [facility] Immature Grans, Absolute 0.06(H) 0.00 - 0.05 10*3/mm3 09/21/2019 7:02 PM [facility] nRBC 0.1 0.0 - 0.2 /100 WBC 09/21/2019 7:02 PM [facility] Blood Venipuncture / Unknown 09/21/2019 8:47 AM EST 09/21/2019 9:29 AM EST us Ibrahima Talamantes MD LAB BLOOD ORDERABLES F inal Result [facility]
[address] [place] [address], * (ABNORMAL) Renal Function Panel (09/21/2019 8:47 AM EST) Glucose 292(H) 65 - 99 mg/dL 09/21/2019 7:21 PM [facility] BUN 45(H) 6 - 20 mg/dL 09/21/2019 7:21 PM [facility] Creatinine 3.86(H) 0.57 - 1.00 mg/dL 09/21/2019 7:21 PM [facility] Sodium 140 136 - 145 mmol/L 09/21/2019 7:21 PM [facility] Potassium 4.9 3.5 - 5.2 mmol/L 09/21/2019 7:21 PM [facility] Chloride 107 98 - 107 mmol/L 09/21/2019 7:21 PM [facility] CO2 18.5(L) 22.0 - 29.0 mmol/L 09/21/2019 7:21 PM [facility] Calcium 8.1(L) 8.6 - 10.5 mg/dL 09/21/2019 7:21 PM [facility] Albumin 3.70 3.50 - 5.20 g/dL 09/21/2019 7:21 PM [facility] Phosphorus 5.2(H) 2.5 - 4.5 mg/dL 09/21/2019 7:21 PM [facility] Anion Gap 14.5 5.0 - 15.0 mmol/L 09/21/2019 7:21 PM [facility] BUN/Creatinine Ratio 11.7 7.0 - 25.0 09/21/2019 7:21 PM [facility] eGFR Non Amer 14(L) >60 mL/min/1.7 3 09/21/2019 7:21 PM [facility] Comment:<15 Indicative of ki dney failure. eGFR Amer 09/21/2019 7:21 PM [facility] Comment:<15 Indicative of ki dney failure. Blood Venipuncture / Unknown 09/21/2019 8:47 AM EST 09/21/2019 9:29 AM EST [facility] - 09/21/2019 7:21 PM EST GFR Normal >60 Chronic Kidney Disease <60 Kidney Failure <15 Ibrahima Talamantes MD LAB BLOOD ORDERABLES F inal Result Performing Organization Address [facility] Co de Phone Number [facility]
[address] [place] [address], * (ABNORMAL) Ferritin (09/21/2019 8:47 AM EST) Ferritin 564.00(H) 13.00 - 150.00 ng/mL 09/21/2019 7:28 PM EST [facility] Blood Venipuncture / Unknown 09/21/2019 8:47 AM EST 09/21/2019 9:29 AM EST Narrative [facility] - 09/21/2019 7:28 PM EST Results may be falsely decreased if patient taking Biotin. Ibrahima Talamantes MD LAB BLOOD ORDERABLES F inal Result Performing Organization Address [facility] Phone Number [facility]
[address] [place] [address], * Iron Profile (09/21/2019 8:47 AM EST) Pathologist [facility] Iron 76 37 - 145 mcg/dL 09/21/2019 7:21 PM EST [facility] Iron Saturation (TSAT) 25 20 - 50 % 09/21/2019 7:21 PM EST [facility] Transferrin 201 200 - 360 mg/dL 09/21/2019 7:21 PM EST [facility] TIBC 299 298 - 536 mcg/dL 09/21/2019 7:21 PM EST [facility] Blood Venipuncture / Unknown 09/21/2019 8:47 AM EST 09/21/2019 9:29 AM EST Ibrahima Talamantes MD LAB BLOOD ORDERABLES F inal Result Performing Organization Address [facility] Co de Phone Number [facility]
[address] [place] [address], documented in this encounter Visit Diagnoses Diagnosis Anemia, unspecified type documented in this encounter
--- OUTSIDE RECORDS SUMMARY | 2024-06-04 07:58 | XMS_ITS | Encounter Summary ---
Author Organization [facility] Address [address] [place] [address] Care Team Providers Care Hydrotel Operator Name Role Phone Unavailable Primary Care Provider Unavailabl e Encounter Details Date Type Department Care Team (Late st Contact Info) Description 02/21/2020 3:10 PM EDT Lab [facility] [address] [place] [address] CKD stage G5/A3, GFR <15 [...] Seen, 0-2 /HPF 02/21/2020 10:57 PM EDT [facility] WBC, UA 31-50(A) None Seen, 0-2 /HPF 02/21/2020 10:57 PM EDT [facility] Bacteria, UA 2+(A) None Seen /HPF 02/21/2020 10:57 PM EDT [facility] Squamous Epithelial Cells, UA 0-2 None Seen, 0-2 /HPF 02/21/2020 10:57 PM EDT [facility] Hyaline Casts, UA 3-6 None Seen /LPF 02/21/2020 10:57 PM EDT [facility] Methodology Automated Microscopy 02/21/2020 10:57 PM EDT [facility] Urine Urine specimen collection, clean catch / Unknown Collection / Unknown 02/21/2020 3:36 PM EDT 02/21/2020 4:27 PM EDT us Mukul Stevens MD URINE ORDERABLES Final Result [facility]
[address] [place] [address], [place] [phone] * (ABNORMAL) Urinalysis without microscopic (no culture) - Urine, Clean Catch (02/21/2020 3:36 PM EDT) Color, UA Yellow Yellow, Straw 02/21/2020 10:51 PM EDT [facility] Appearance, UA Cloudy(A) Clear 02/21/2020 10:51 PM EDT [facility] pH, UA 6.0 5.0 - 8.0 02/21/2020 10:51 PM EDT [facility] Specific [place], UA 1.013 1.005 - 1.030 02/21/2020 10:51 PM EDT [facility] Glucose, UA Negative Negative 02/21/2020 10:51 PM EDT [facility] Ketones, UA Negative Negative 02/21/2020 10:51 PM EDT [facility] Bilirubin, UA Negative Negative 02/21/2020 10:51 PM EDT [facility] Blood, UA Negative Negative 02/21/2020 10:51 PM EDT [facility] Protein, UA >=300 mg/dL (3+)(A) Negative 02/21/2020 10:51 PM EDT [facility] Leuk Esterase, UA Trace(A) Negative 02/21/2020 10:51 PM EDT [facility] Nitrite, UA Negative Negative 02/21/2020 10:51 PM EDT [facility] Urobilinogen, UA 0.2 E.U./dL 0.2 - 1.0 E.U./dL 02/21/2020 10:51 PM EDT [facility] Urine Urine specimen collection, clean catch / Unknown Collection / Unknown 02/21/2020 3:36 PM EDT 02/21/2020 4:27 PM EDT Mukul Stevens MD URINE ORDERABLES Final Result [facility]
[address] [place] [address], * (ABNORMAL) CBC Auto Differential (02/21/2020 3:36 PM EDT) [facility] WBC 7.41 3.40 - 10.80 10*3/mm3 02/21/2020 11:40 PM EDT [facility] RBC 4.12 3.77 - 5.28 10*6/mm3 02/21/2020 11:40 PM EDT [facility] Hemoglobin 12.4 12.0 - 15.9 g/dL 02/21/2020 11:40 PM EDT [facility] Hematocrit 36.9 34.0 - 46.6 % 02/21/2020 11:40 PM EDT [facility] MCV 89.6 79.0 - 97.0 fL 02/21/2020 11:40 PM EDT [facility] MCH 30.1 26.6 - 33.0 pg 02/21/2020 11:40 PM EDT [facility] MCHC 33.6 31.5 - 35.7 g/dL 02/21/2020 11:40 PM EDT [facility] RDW 13.5 12.3 - 15.4 % 02/21/2020 11:40 PM EDT [facility] RDW-SD 44.7 37.0 - 54.0 fl 02/21/2020 11:40 PM EDT [facility] MPV 13.8(H) 6.0 - 12.0 fL 02/21/2020 11:40 PM EDT [facility] Platelets 172 140 - 450 10*3/mm3 02/21/2020 11:40 PM EDT [facility] Neutrophil % 51.4 42.7 - 76.0 % 02/21/2020 11:40 PM EDT [facility] Lymphocyte % 38.3 19.6 - 45.3 % 02/21/2020 11:40 PM EDT [facility] Monocyte % 6.9 5.0 - 12.0 % 02/21/2020 11:40 PM EDT [facility] Eosinophil % 2.7 0.3 - 6.2 % 02/21/2020 11:40 PM EDT [facility] Basophil % 0.4 0.0 - 1.5 % 02/21/2020 11:40 PM EDT [facility] Neutrophils, Absolute 3.81 1.70 - 7.00 10*3/mm3 02/21/2020 11:40 PM EDT [facility] Lymphocytes, Absolute 2.84 0.70 - 3.10 10*3/mm3 02/21/2020 11:40 PM EDT [facility] Monocytes, Absolute 0.51 0.10 - 0.90 10*3/mm3 02/21/2020 11:40 PM EDT [facility] Eosinophils, Absolute 0.20 0.00 - 0.40 10*3/mm3 02/21/2020 11:40 PM EDT [facility] Basophils, Absolute 0.03 0.00 - 0.20 10*3/mm3 02/21/2020 11:40 PM EDT [facility] Blood Venipuncture / Unknown 02/21/2020 3:36 PM EDT 02/21/2020 4:36 PM EDT Mukul Stevens MD LAB BLOOD ORDERABLES F inal Result [facility]
[address] [place] [address], * (ABNORMAL) Renal Function Panel (02/21/2020 3:36 PM EDT) Glucose 53(L) 65 - 99 mg/dL 02/21/2020 11:14 PM EDT [facility] BUN 23(H) 6 - 20 mg/dL 02/21/2020 11:14 PM EDT [facility] Creatinine 3.58(H) 0.57 - 1.00 mg/dL 02/21/2020 11:14 PM EDT [facility] Sodium 140 136 - 145 mmol/L 02/21/2020 11:14 PM EDT [facility] Potassium 4.8 3.5 - 5.2 mmol/L 02/21/2020 11:14 PM EDT [facility] Chloride 110(H) 98 - 107 mmol/L 02/21/2020 11:14 PM EDT [facility] CO2 19.9(L) 22.0 - 29.0 mmol/L 02/21/2020 11:14 PM EDT [facility] Calcium 9.6 8.6 - 10.5 mg/dL 02/21/2020 11:14 PM EDT [facility] Albumin 4.00 3.50 - 5.20 g/dL 02/21/2020 11:14 PM EDT [facility] Phosphorus 3.1 2.5 - 4.5 mg/dL 02/21/2020 11:14 PM EDT [facility] Anion Gap 10.1 5.0 - 15.0 mmol/L 02/21/2020 11:14 PM EDT [facility] BUN/Creatinine Ratio 6.4(L) 7.0 - 25.0 02/21/2020 11:14 PM EDT [facility] eGFR Non Amer 15(L) >60 mL/min/1.7 3 02/21/2020 11:14 PM T [facility] Blood Venipuncture / Unknown 02/21/2020 3:36 PM EDT 02/21/2020 4:38 PM EDT Narrative [facility] - 02/21/2020 11:14 PM EDT GFR Normal >60 Chronic Kidney Disease <60 Kidney Failure <15 us Mukul Stevens MD LAB BLOOD ORDERABLES F inal Result [facility]
[address] [place] [address], documented in this encounter Visit Diagnoses Diagnosis CKD stage G5/A3, GFR <15 and albumin creatinine ratio >300 mg/g documented in this encounter
--- OUTSIDE RECORDS SUMMARY | 2024-06-04 07:58 | XMS_ITS | Encounter Summary ---
Author Organization [facility] Address [address] [place] [address] Care Team Providers Care Livestock Slaughterer Name Role Phone Unavailable Primary Care Provider Unavailabl e Reason for Visit * Reason Comments Arm Injury Bronchitis Encounter Details Date Type Department Care Team (Late st Contact Info) Description 05/07/2019 7:53 PM EDT - 05/07/2019 10:02 PM EDT Emergency [facility] [address] [place] [id number] Dominik Rizo MD [address] [place] [address] Sprain of right shoulder, unspecified shoulder sprain [...] sent through Care Everywhere. * Shoulder Sprain (Armenian) documented in this encounter Medications at Time [...] SECTION 10/17/2012 ??? SECTION ??? INDUCED [address] [facility] [...] For this patient encounter, I reviewed the ROUTING MACHINE OPERATOR or PA documentation, treatment plan, [...]
--- OUTSIDE RECORDS SUMMARY | 2024-06-04 07:59 | XMS_ITS | Encounter Summary ---
Author Organization [facility] Address [address] [place] [address] Care Team Providers Care Family Helper Name Role Phone Unavailable Primary Care Provider Unavailabl e Encounter Details Date Type Department Care Team (Late st Contact Info) Description 12/27/2018 4:15 PM EDT Lab [facility] [address] [place] [address] Vitamin D deficiency; Chronic kidney [...] - 10.80 10*3/mm3 12/27/2018 5:25 PM EDT [facility] RBC 3.96 3.77 - 5.28 10*6/mm3 12/27/2018 5:25 PM EDT [facility] Hemoglobin 11.4(L) 12.0 - 15.9 g/dL 12/27/2018 5:25 PM EDT [facility] Hematocrit 34.9 34.0 - 46.6 % 12/27/2018 5:25 PM EDT [facility] MCV 88.1 79.0 - 97.0 fL 12/27/2018 5:25 PM EDT [facility] MCH 28.8 26.6 - 33.0 pg 12/27/2018 5:25 PM EDT [facility] MCHC 32.7 31.5 - 35.7 g/dL 12/27/2018 5:25 PM EDT [facility] RDW 12.8 12.3 - 15.4 % 12/27/2018 5:25 PM EDT [facility] RDW-SD 40.4 37.0 - 54.0 fl 12/27/2018 5:25 PM EDT [facility] MPV 13.0(H) 6.0 - 12.0 fL 12/27/2018 5:25 PM EDT [facility] Platelets 263 140 - 450 10*3/mm3 12/27/2018 5:25 PM EDT [facility] Neutrophil % 54.8 42.7 - 76.0 % 12/27/2018 5:25 PM EDT [facility] Lymphocyte % 35.3 19.6 - 45.3 % 12/27/2018 5:25 PM EDT [facility] Monocyte % 5.6 5.0 - 12.0 % 12/27/2018 5:25 PM EDT [facility] Eosinophil % 3.4 0.3 - 6.2 % 12/27/2018 5:25 PM EDT [facility] Basophil % 0.4 0.0 - 1.5 % 12/27/2018 5:25 PM EDT [facility] Immature Grans % 0.5 0.0 - 0.5 % 12/27/2018 5:25 PM EDT [facility] Neutrophils, Absolute 5.62 1.70 - 7.00 10*3/mm3 12/27/2018 5:25 PM EDT [facility] Lymphocytes, Absolute 3.63(H) 0.70 - 3.10 10*3/mm3 12/27/2018 5:25 PM EDT [facility] Monocytes, Absolute 0.58 0.10 - 0.90 10*3/mm3 12/27/2018 5:25 PM EDT [facility] Eosinophils, Absolute 0.35 0.00 - 0.40 10*3/mm3 12/27/2018 5:25 PM EDT [facility] Basophils, Absolute 0.04 0.00 - 0.20 10*3/mm3 12/27/2018 5:25 PM EDT [facility] Immature Grans, Absolute 0.05 0.00 - 0.05 10*3/mm3 12/27/2018 5:25 PM EDT [facility] nRBC 0.0 0.0 - 0.2 /100 WBC 12/27/2018 5:25 PM EDT [facility] Blood Venipuncture / Unknown 12/27/2018 5:05 PM EDT 12/27/2018 5:19 PM EDT us Mukul Stevens MD LAB BLOOD ORDERABLES F inal Result [facility]
[address] [place] [address], * (ABNORMAL) Renal Function Panel (12/27/2018 5:05 PM EDT) [facility] Glucose 82 74 - 98 mg/dL 12/27/2018 5:54 PM EDT [facility] BUN 41(H) 7 - 20 mg/dL 12/27/2018 5:54 PM EDT [facility] Creatinine 3.70(H) 0.60 - 1.30 mg/dL 12/27/2018 5:54 PM EDT [facility] Sodium 140 137 - 145 mmol/L 12/27/2018 5:54 PM EDT [facility] Potassium 4.5 3.5 - 5.1 mmol/L 12/27/2018 5:54 PM EDT [facility] Chloride 102 98 - 107 mmol/L 12/27/2018 5:54 PM EDT [facility] CO2 24.0(L) 26.0 - 30.0 mmol/L 12/27/2018 5:54 PM EDT [facility] Calcium 8.7 8.4 - 10.2 mg/dL 12/27/2018 5:54 PM EDT [facility] Albumin 4.60 3.50 - 5.00 g/dL 12/27/2018 5:54 PM EDT [facility] Phosphorus 7.3(H) 2.5 - 4.5 mg/dL 12/27/2018 5:54 PM EDT [facility] Anion Gap 18.5 10.0 - 20.0 mmol/L 12/27/2018 5:54 PM EDT [facility] BUN/Creatinine Ratio 11.1 7.1 - 23.5 12/27/2018 5:54 PM T [facility] eGFR Non Amer 14(L) >60 mL/min/1.7 3 12/27/2018 5:54 PM EDT [facility] Comment:<15 Indicative of ki dney failure. eGFR Amer >60 mL/min/1.7 3 12/27/2018 5:54 PM EDT [facility] Comment:<15 Indicative of ki dney failure. Blood Venipuncture / Unknown 12/27/2018 5:05 PM EDT 12/27/2018 5:19 PM EDT [facility] - 12/27/2018 5:54 PM EDT GFR Normal >60 Chronic Kidney Disease <60 Kidney Failure <15 Mukul Stevens MD LAB BLOOD ORDERABLES F inal Result Performing Organization Address City/[facility]/ZIP Co de Phone Number [facility]
[address] [place] [address], * (ABNORMAL) PTH, Intact (12/27/2018 5:05 PM EDT) PTH, Intact 201(H) 15 - 65 pg/mL 12/28/2018 4:12 PM EDT [facility] Blood Venipuncture / Unknown 12/27/2018 5:05 PM EDT 12/27/2018 5:[address] [facility] - 12/28/2018 4:12 PM EDT Performed at: ??01 - [facility] ??[id number] Kiln Charger: Jacob Whaley PhD, Phone: ??[phone] Mukul Stevens MD LAB BLOOD ORDERABLES F inal Result Performing Organization Address [facility]/ZIP Co de Phone Number [facility] [address] [place] [phone], * Vitamin D 25 Hydroxy (12/27/2018 5:05 PM EDT) 25 Hydroxy, Vitamin D 24.7 ng/ml 12/27/2018 6:20 PM EDT [facility] Blood Venipuncture / Unknown 12/27/2018 5:05 PM EDT 12/27/2018 5:19 PM EDT [facility] - 12/27/2018 6:20 PM EDT Interpretation ?ng/mL ? Deficient ? <20 Insufficient ? 20-29 Sufficient ? 30-100 Potential Toxicity ? >100 As per:. Eryn CONNELL, Haresh KANG, Marlin BARONE, et al. Evaluation, treatment, and prevention of vitamin D deficiency: ??an Endocrine Society clinical practice guideline. JCEM. 2011 Jan; 96(7):1911-30. us Mukul Stevens MD LAB BLOOD ORDERABLES F inal Result [facility]
[address] [place] [address], [place] [phone] documented in this encounter Visit Diagnoses Diagnosis Vitamin D deficiency Chronic kidney disease, stage IV (severe) Chronic kidney disease, Stage IV (severe) Hyperparathyroidism, secondary documented in this encounter
--- OUTSIDE RECORDS SUMMARY | 2024-06-04 07:59 | XMS_ITS | Encounter Summary ---
Author Organization [facility] Address [address] [place] [address] Care Team Providers Care Palm Gatherer Name Role Phone Unavailable Primary Care Provider Unavailabl e Reason for Referral * (Emergency) - Closed Specialty Diagnoses / Procedures Referred By Contac t Referred To Contact Radiology Diagnoses Low back pain, unspecified back pain laterality, unspecified chronicity, with sciatica presence unspecified Procedures XR Spine Lumbar 4+ View XR Spine Lumbar 2 or 3 View Fabiola Guzman MD [address] [place] [address] [place] [address] Phone: tel: fax: Referral ID Status Reason Start Date Expiration Date Visits Re quested Visits Authorized [id number] Closed 01/29/2019 01/29/2020 1 1 Reason for Visit * (Emergency) - Closed Specialty Diagnoses / Procedures Referred By Contac t Referred To Contact Radiology Diagnoses Low back pain, unspecified back pain laterality, unspecified chronicity, with sciatica presence unspecified Procedures XR Spine Lumbar 4+ View XR Spine Lumbar 2 or 3 View Fabiola Guzman MD [address] [place] [address] [place] [address] Phone: tel: fax: Referral ID Status Reason Start Date Expiration Date Visits Re quested Visits Authorized [id number] Closed 01/29/2019 01/29/2020 1 1 Encounter Details Date Type Department Care Team (Latest Contact Info) Description 01/29/2019 3:33 PM EDT - 01/29/2019 11:59 PM EDT Hospital Encounter [facility] [address] [place] [address] Low back pain, unspecified back [...]
--- OUTSIDE RECORDS SUMMARY | 2024-06-04 07:59 | XMS_ITS | Encounter Summary ---
[facility] [address] [place] [address] Care Team Providers Care Home Care Scheduler Name Role Phone Unavailable Primary Care Provider Unavailabl e Reason for Visit * Reason Comments Headache Encounter Details Date Type Department Care Team (Late st Contact Info) Description 01/02/2019 9:25 PM EDT - 01/02/2019 10:49 PM EDT Emergency [facility] [address] [place] [phone] Mickey Cerda MD [address] [place] [address] Headache, unspecified headache type (Primary Dx); Chills [...] Care Everywhere. * General Headache Without Cause [id number] (Estonian) documented in this encounter Medications at Time [...] None Seen /HPF 01/02/2019 10:12 PM EDT [facility] WBC, UA None Seen None Seen /HPF 01/02/2019 10:12 PM EDT [facility] Bacteria, UA Trace(A) None Seen /HPF 01/02/2019 10:12 PM EDT [facility] Squamous Epithelial Cells, UA 3-6(A) None Seen, 0-2 /HPF 01/02/2019 10:12 PM EDT [facility] Hyaline Casts, UA None Seen None Seen /LPF 01/02/2019 10:12 PM EDT [facility] Mucus, UA Trace None Seen, Trace /HPF 01/02/2019 10:12 PM EDT [facility] Methodology Manual Light Microscopy 01/02/2019 10:12 PM EDT [facility] Urine Urine specimen collection, clean catch / Unknown Collection / Unknown 01/02/2019 9:51 PM EDT 01/02/2019 9:58 PM EDT us Mickey Cerda MD URINE ORDERABLES Final Resu lt [facility]
[address] [place] [id number], * (ABNORMAL) Urinalysis With Culture If Indicated - Urine, Clean Catch (01/02/2019 9:51 PM EDT) Color, UA Yellow Yellow, Straw 01/02/2019 10:12 PM EDT [facility] Appearance, UA Clear Clear 01/02/2019 10:12 PM EDT [facility] pH, UA 6.5 5.0 - 8.0 01/02/2019 10:12 PM EDT [facility] Specific [place], UA 1.013 1.005 - 1.030 01/02/2019 10:12 PM EDT [facility] Glucose, UA 100 mg/dL (Trace)(A) Negative 01/02/2019 10:12 PM EDT [facility] Ketones, UA Negative Negative 01/02/2019 10:12 PM EDT [facility] Bilirubin, UA Negative Negative 01/02/2019 10:12 PM EDT [facility] Blood, UA Trace(A) Negative 01/02/2019 10:12 PM EDT [facility] Protein, UA >=300 mg/dL (3+)(A) Negative 01/02/2019 10:12 PM EDT [facility] Leuk Esterase, UA Negative Negative 01/02/2019 10:12 PM EDT [facility] Nitrite, UA Negative Negative 01/02/2019 10:12 PM EDT [facility] Urobilinogen, UA 0.2 E.U./dL 0.2 - 1.0 E.U./dL 01/02/2019 10:12 PM EDT [facility] Urine Urine specimen collection, clean catch / Unknown Collection / Unknown 01/02/2019 9:51 PM EDT 01/02/2019 9:58 PM EDT us Mickey Cerda MD URINE ORDERABLES Final Resu lt [facility]
[address] [place] [id number], * (ABNORMAL) CBC Auto Differential (01/02/2019 9:50 PM EDT) WBC 10.29 3.40 - 10.80 10*3/mm3 01/02/2019 10:01 PM EDT [facility] RBC 3.93 3.77 - 5.28 10*6/mm3 01/02/2019 10:01 PM EDT [facility] Hemoglobin 11.2(L) 12.0 - 15.9 g/dL 01/02/2019 10:01 PM EDT [facility] Hematocrit 34.6 34.0 - 46.6 % 01/02/2019 10:01 PM EDT [facility] MCV 88.0 79.0 - 97.0 fL 01/02/2019 10:01 PM EDT [facility] MCH 28.5 26.6 - 33.0 pg 01/02/2019 10:01 PM EDT [facility] MCHC 32.4 31.5 - 35.7 g/dL 01/02/2019 10:01 PM EDT [facility] RDW 13.0 12.3 - 15.4 % 01/[facility]2019 [facility] RDW-SD 42.2 37.0 - 54.0 fl 01/02/2019 10:01 PM EDT [facility] MPV 12.7(H) 6.0 - 12.0 fL 01/02/2019 10:01 PM [facility] Platelets 256 140 - 450 10*3/mm3 01/02/2019 10:01 PM [facility] Neutrophil % 53.5 42.7 - 76.0 % 01/02/2019 10:01 PM [facility] Lymphocyte % 36.2 19.6 - 45.3 % 01/02/2019 10:01 PM [facility] Monocyte % 5.5 5.0 - 12.0 % 01/02/2019 10:01 PM [facility] Eosinophil % 4.2 0.3 - 6.2 % 01/02/2019 10:01 PM [facility] Basophil % 0.3 0.0 - 1.5 % 01/02/2019 10:01 PM [facility] Immature Grans % 0.3 0.0 - 0.5 % 01/02/2019 10:01 PM [facility] Neutrophils, Absolute 5.51 1.70 - 7.00 10*3/mm3 01/02/2019 10:01 PM [facility] Lymphocytes, Absolute 3.72(H) 0.70 - 3.10 10*3/mm3 01/02/2019 10:01 PM [facility] Monocytes, Absolute 0.57 0.10 - 0.90 10*3/mm3 01/02/2019 10:01 PM [facility] Eosinophils, Absolute 0.43(H) 0.00 - 0.40 10*3/mm3 01/02/2019 10:01 PM [facility] Basophils, Absolute 0.03 0.00 - 0.20 10*3/mm3 01/02/2019 10:01 PM [facility] Immature Grans, Absolute 0.03 0.00 - 0.05 10*3/mm3 01/02/2019 10:01 PM [facility] nRBC 0.0 0.0 - 0.2 /100 WBC 01/02/2019 10:01 PM [facility] Blood Venipuncture / Unknown 01/02/2019 9:50 PM EDT 01/02/2019 9:58 PM EDT Mickey Cerda MD LAB BLOOD ORDERABLES Final Result [facility]
[address] [place] [address], * (ABNORMAL) Comprehensive Metabolic Panel (01/02/2019 9:50 PM EDT) Glucose 216(H) 74 - 98 mg/dL 01/02/2019 10:20 PM EDT [facility] Comment:Glucose >180, Hemogl obin A1C recommended. BUN 44(H) 7 - 20 mg/dL 01/02/2019 10:20 PM EDT [facility] Creatinine 3.60(H) 0.60 - 1.30 mg/dL 01/02/2019 10:20 PM EDT [facility] Sodium 137 137 - 145 mmol/L 01/02/2019 10:20 PM EDT [facility] Potassium 4.2 3.5 - 5.1 mmol/L 01/02/2019 10:20 PM EDT [facility] Chloride 101 98 - 107 mmol/L 01/02/2019 10:20 PM EDT [facility] CO2 24.0(L) 26.0 - 30.0 mmol/L 01/02/2019 10:20 PM EDT [facility] Calcium 8.9 8.4 - 10.2 mg/dL 01/02/2019 10:20 PM EDT [facility] Total Protein 7.5 6.3 - 8.2 g/dL 01/02/2019 10:20 PM EDT [facility] Albumin 4.30 3.50 - 5.00 g/dL 01/02/2019 10:20 PM EDT [facility] ALT (SGPT) 24 13 - 69 U/L 01/02/2019 10:20 PM EDT [facility] AST (SGOT) 15 15 - 46 U/L 01/02/2019 10:20 PM EDT [facility] Alkaline Phosphatase 71 38 - 126 U/L 01/02/2019 10:20 PM EDT [facility] Total Bilirubin 0.2 0.2 - 1.3 mg/dL 01/02/2019 10:20 PM EDT [facility] eGFR Non Amer 15(L) >60 mL/min/1.7 3 01/02/2019 10:20 PM EDT [facility] Globulin 3.2 gm/dL 01/02/2019 10:20 PM EDT [facility] A/G Ratio 1.3 1.0 - 2.0 g/dL 01/02/2019 10:20 PM EDT [facility] BUN/Creatinine Ratio 12.2 7.1 - 23.5 01/02/2019 10:20 PM EDT [facility] Anion Gap 16.2 10.0 - 20.0 mmol/L 01/02/2019 10:20 PM EDT [facility] Blood Venipuncture / Unknown 01/02/2019 9:50 PM EDT 01/02/2019 9:58 PM EDT Narrative [facility] - 01/02/2019 10:20 PM EDT GFR Normal >60 Chronic Kidney Disease <60 Kidney Failure <15 Mickey Cerda MD LAB BLOOD ORDERABLES Final Result [facility]
[address] [place] [id number], documented in this encounter Visit Diagnoses Diagnosis [...] Given 01/02/2019 9:53 PM EDT 650 mg ridinrbdcl-hvgdocbjnklqr-amf feine (FIORICET, ESGIC) 50-325-40 MG per tablet [...] (Given - Provid er: Sarah Shaffer RN) iqipfggtxe-gdxohgrrhtjtp-wzkzjpwr (FIORICET, ESGIC) 50-325-40 MG per tablet 1 [...]
--- OUTSIDE RECORDS SUMMARY | 2024-06-04 07:59 | XMS_ITS | Encounter Summary ---
[facility] Address [address] [place] [address] Care Team Providers Care Carry Out Clerk Name Role Phone Unavailable Primary Care Provider Unavailabl e Reason for Visit * Reason Comments Nasal Congestion Sore Throat Encounter Details Date Type Department Care Team (Late st Contact Info) Description 03/12/2019 8:03 PM EDT - 03/12/2019 10:15 PM EDT Emergency [facility] [address] [place] [phone] Dominik Rizo MD [address] [place] [address] Upper respiratory tract infection, unspecified type (Primary [...] Continue your nasal spray as directed. Take tpbi-vay-ombtncq Tylenol 500 mg every 6 hours for headache. Drink plenty of fluids to help stay hydrated and thin the mucus. Take rhlo-itj-awlnnsr medication such as DayQuil or NyQuil as [...] sent through Care Everywhere. * Sore Throat (Vincentian) * Viral Respiratory Infection (Vincentian) documented in this encounter Medications at Time [...] SECTION 10/17/2012 ??? SECTION ??? INDUCED 2006 [facility] History reviewed. No pertinent family history. [...] For this patient encounter, I reviewed the REFRIGERATION ENGINEER or PA documentation, treatment plan, and [...] Streptococcus Isolated KIRA 03/14/2019 10:33 AM EDT [facility] Swab Specimen from throat / Unknown Collection / Unknown 03/12/2019 9:11 PM EDT 03/12/2019 9:14 PM EDT Narrative [facility] - 03/14/2019 10:33 AM EDT Group A Strep incidence is low in adults. Positive culture for Beta hemolytic Streptococcus species can reflect colonization and not true infection. Please correlate clinically. Sierra MENDEZ-C MICROBIOLOGY - GENERAL ORDE RABLES Final Result Performing Organization Address City/[facility]/ZIP Co de Phone Number [facility]
[address] [place] [address], * Rapid Strep A Screen - Swab, Throat (03/12/2019 9:11 PM EDT) Strep A Ag Negative Negative 03/12/2019 9:28 PM EDT [facility] Swab Specimen from throat / Unknown Collection / Unknown 03/12/2019 9:11 PM EDT 03/12/2019 9:14 PM EDT Sierra MENDEZ-C MICROBIOLOGY - GENERAL ORDE RABLES Final Result Performing Organization Address [facility]/ZIP Co de Phone Number [facility]
[address] [place] [address], [place] [phone] * Influenza Antigen, Rapid - Swab, Nasopharynx (03/12/2019 9:10 PM EDT) Influenza A Ag, EIA Negative Negative 03/12/2019 9:26 PM EDT [facility] Influenza B Ag, EIA Negative Negative 03/12/2019 9:26 PM EDT [facility] Swab Nasopharyngeal structure / Unknown Collection / Unknown 03/12/2019 9:10 PM EDT 03/12/2019 9:14 PM EDT Sierra MENDEZ-C MICROBIOLOGY - GENERAL ORDE RABLES Final Result Performing Organization Address City/[facility]/ZIP Co de Phone Number [facility]
[address] [place] [address], [place] [phone] documented in this encounter Visit Diagnoses Diagnosis [...]
--- OUTSIDE RECORDS SUMMARY | 2024-06-04 07:59 | XMS_ITS | Encounter Summary ---
Author Organization [facility] Address [address] [place] [address] Care Team Providers Care Forest Products Teacher Name Role Phone Unavailable Primary Care Provider Unavailabl e Encounter Details Date Type Department Care Team (Late st Contact Info) Description 03/05/2019 4:20 PM EDT Lab [facility] [address] [place] [address] Secondary hyperparathyroidism; Chronic kidney disease, [...] Seen, 0-2 /HPF 03/05/2019 11:07 PM EDT [facility] WBC, UA 0-2 None Seen, 0-2 /HPF 03/05/2019 11:07 PM EDT [facility] Bacteria, UA 1+(A) None Seen /HPF 03/05/2019 11:07 PM EDT [facility] Squamous Epithelial Cells, UA 0-2 None Seen, 0-2 /HPF 03/05/2019 11:07 PM EDT [facility] Hyaline Casts, UA 0-2 None Seen /LPF 03/05/2019 11:07 PM EDT [facility] Methodology Automated Microscopy 03/05/2019 11:07 PM EDT [facility] Urine Urine specimen collection, clean catch / Unknown Collection / Unknown 03/05/2019 4:49 PM EDT 03/05/2019 6:39 PM EDT us Maria A Soria SEAFOOD PROCESSOR URINE ORDERABLES Final Resu lt [facility]
[address] [place] [address], * (ABNORMAL) Urinalysis without microscopic (no culture) - Urine, Clean Catch (03/05/2019 4:49 PM EDT) Color, UA Yellow Yellow, Straw 03/05/2019 10:57 PM EDT [facility] Appearance, UA Clear Clear 03/05/2019 10:57 PM EDT [facility] pH, UA 7.5 5.0 - 8.0 03/05/2019 10:57 PM EDT [facility] Specific [place], UA 1.011 1.005 - 1.030 03/05/2019 10:57 PM EDT [facility] Glucose, UA 100 mg/dL (Trace)(A) Negative 03/05/2019 10:57 PM EDT [facility] Ketones, UA Negative Negative 03/05/2019 10:57 PM EDT [facility] Bilirubin, UA Negative Negative 03/05/2019 10:57 PM EDT [facility] Blood, UA Negative Negative 03/05/2019 10:57 PM EDT [facility] Protein, UA >=300 mg/dL (3+)(A) Negative 03/05/2019 10:57 PM EDT [facility] Leuk Esterase, UA Negative Negative 03/05/2019 10:57 PM EDT [facility] Nitrite, UA Negative Negative 03/05/2019 10:57 PM EDT [facility] Urobilinogen, UA 0.2 E.U./dL 0.2 - 1.0 E.U./dL 03/05/2019 10:57 PM EDT [facility] Urine Urine specimen collection, clean catch / Unknown Collection / Unknown 03/05/2019 4:49 PM EDT 03/05/2019 6:39 PM EDT us Maria A Soria SEAFOOD PROCESSOR URINE ORDERABLES Final Resu lt [facility]
[address] [place] [address], * Urine Culture - Urine, Urine, Clean Catch (03/05/2019 4:49 PM EDT) Urine Culture No growth KIRA 03/06/2019 7:02 PM EDT [facility] Urine Urine specimen collection, clean catch / Unknown Collection / Unknown 03/05/2019 4:49 PM EDT 03/05/2019 6:39 PM EDT Maria A Soria APRN MICROBIOLOGY - GENERAL ORDE RABLES Final Result Performing Organization Address City/[facility]/ZIP Co de Phone Number [facility]
[address] [place] [address], * (ABNORMAL) Vitamin D 25 Hydroxy (03/05/2019 4:49 PM EDT) 25 Hydroxy, Vitamin D 11.5(L) 30.0 - 100.0 ng/ml 03/05/2019 10:48 PM EDT [facility] Blood Venipuncture / Unknown 03/05/2019 4:49 PM EDT 03/05/2019 6:40 PM EDT Narrative [facility] - 03/05/2019 10:48 PM EDT Reference Range for Total Vitamin D 25(OH) Deficiency <20.0 ng/mL Insufficiency 21-29 ng/mL Sufficiency 30-100 ng/mL Toxicity >100 ng/ml Maria A Soria APRN LAB BLOOD ORDERABLES Final Result Performing Organization Address City/[facility]/ZIP Co de Phone Number [facility]
[address] [place] [address], * (ABNORMAL) Renal Function Panel (03/05/2019 4:49 PM EDT) Glucose 191(H) 65 - 99 mg/dL 03/05/2019 10:31 PM EDT [facility] BUN 35(H) 6 - 20 mg/dL 03/05/2019 10:31 PM EDT [facility] Creatinine 3.73(H) 0.57 - 1.00 mg/dL 03/05/2019 10:31 PM [facility] Sodium 138 136 - 145 mmol/L 03/05/2019 10:31 PM T [facility] Potassium 4.6 3.5 - 5.2 mmol/L 03/05/2019 10:31 PM [facility] Chloride 98 98 - 107 mmol/L 03/05/2019 10:31 PM [facility] CO2 24.2 22.0 - 29.0 mmol/L 03/05/2019 10:31 PM [facility] Calcium 8.9 8.6 - 10.5 mg/dL 03/05/2019 10:31 PM [facility] Albumin 4.10 3.50 - 5.20 g/dL 03/05/2019 10:31 PM [facility] Phosphorus 4.4 2.5 - 4.5 mg/dL 03/05/2019 10:31 PM [facility] Anion Gap 15.8(H) 5.0 - 15.0 mmol/L 03/05/2019 10:31 PM [facility] BUN/Creatinine Ratio 9.4 7.0 - 25.0 03/05/2019 10:31 PM T [facility] eGFR Non Amer 14(L) >60 mL/min/1.7 3 03/05/2019 10:31 PM [facility] Comment:<15 Indicative of ki dney failure. eGFR Amer >60 mL/min/1.7 3 03/05/2019 10:31 PM [facility] Comment:<15 Indicative of ki dney failure. Blood Venipuncture / Unknown 03/05/2019 4:49 PM EDT 03/05/2019 6:40 PM EDT [facility] - 03/05/2019 10:31 PM EDT GFR Normal >60 Chronic Kidney Disease <60 Kidney Failure <15 Maria A Soria APRN LAB BLOOD ORDERABLES Final Result Performing Organization Address [facility]/ZIP Co de Phone Number [facility]
[address] [place] [address], * (ABNORMAL) PTH, Intact (03/05/2019 4:49 PM EDT) PTH, Intact 257.0(H) 15.0 - 65.0 pg/mL 03/05/2019 10:54 PM EDT [facility] Blood Venipuncture / Unknown 03/05/2019 4:49 PM EDT 03/05/2019 6:40 PM EDT Maria A Soria APRN LAB BLOOD ORDERABLES Final Result Performing Organization Address [facility] Co de Phone Number [facility]
[address] [place] [address], documented in this encounter Visit Diagnoses Diagnosis Secondary hyperparathyroidism Secondary hyperparathyroidism (of renal origin) Chronic kidney disease, stage IV (severe) Chronic kidney disease, Stage IV (severe) Urinary tract infection without hematuria, site unspecified documented in this encounter
--- OUTSIDE RECORDS SUMMARY | 2024-06-04 07:59 | XMS_ITS | Encounter Summary ---
[facility] Address [address] [place] [id number] Care Team Providers Care Ear Nose Throat Surgeon Name Role Phone Unavailable Primary Care Provider Unavailabl e Reason for Visit * Reason Comments Headache Encounter Details Date Type Department Care Team (Late st Contact Info) Description 02/13/2019 7:53 PM EDT - 02/13/2019 9:20 PM EDT Emergency [facility] EMERGENCY DEPARTMENT [address] [place] [address] Phill Gama, DO [address] [place], [place] [id number] Folliculitis (Primary Dx); Nonintractable headache, unspecified chronicity [...] Care Everywhere. * General Headache Without Cause [id number] (Azerbaijani) documented in this encounter Medications at Time [...] of this encounter ED Notes * Rashard Mooyd PA-C - 02/13/2019 8:35 PM EDT Subjective [...] SECTION 10/17/2012 ??? SECTION ??? INDUCED 2006 [facility] History reviewed. No pertinent family history. Social [...] unspecified headache type Rashard Moody PA-C 02/13/19 0801 Cosigned by Phill Gama DO at 02/13/2019 10:54 PM EDT Associated attestation - Phill Gama DO - 02/13/2019 10:54 PM EDT For this patient encounter, I reviewed the MAINTENANCE SERVICE SUPERVISOR or PA documentation, treatment plan, and [...] MAR Action Action Date Dose Rate Site irwnyifdvx-[id number] e (FIORICET, ESGIC) 50-325-40 MG per tablet [...] EDT. Scheduled Medication Order 02/11/2019 02/12/2019 02/13/2019 [id number] (FIORICET, ESGIC) 50-325-40 MG per tablet 1 [...]
--- OUTSIDE RECORDS SUMMARY | 2024-06-04 07:59 | XMS_ITS | Encounter Summary ---
[facility] [address] [place] [id number] Care Team Providers Care Payroll Analyst Name Role Phone Unavailable Primary Care Provider Unavailabl e Reason for Visit * Reason Comments Fall Encounter Details Date Type Department Care Team (Late st Contact Info) Description 01/27/2019 6:41 PM EDT - 01/27/2019 9:02 PM EDT Emergency [facility] EMERGENCY DEPARTMENT [address] [place] [phone] Jaquan Arenas, Krissy Higginbotham MD Contusion [...] sent through Care Everywhere. * Rib Contusion (Sammarinese) * Knee Sprain Adult (Sammarinese) documented in this encounter Medications at [...] and dressing applied. Silvia Laird RN 01/27/19 [id number] * Maikol Quiroz Jr., JOHN - 01/27/2019 7:07 PM EDT Subjective 28-year-old female presents after a fall, she states that she fell on water while at [employer]. She hit the right side of her ribs on a wire in bucket when she fell. She is also complained of left knee pain that twisted underneath her. No head or neck injury no loss of consciousness, she arrived via EMS. History provided by: Patient creeler used: No Review of Systems Musculoskeletal: Right [...] 10/17/2012 ??? SECTION ??? INDUCED 2006 [facility] History reviewed. No pertinent family history. [...] For this patient encounter, I reviewed the CURTAIN SUPERVISOR or PA documentation, treatment plan, and [...] Laterality Modality Lower Extremities, Knee Left [facility] 01/28/2019 7:08 AM EDT [...]
--- OUTSIDE RECORDS SUMMARY | 2024-06-04 07:59 | XMS_ITS | Encounter Summary ---
[facility] [address] [place] [address] Care Team Providers Care Barratte Operator Name Role Phone Unavailable Primary Care Provider Unavailabl e Reason for Visit * Reason Comments Chest Pain Encounter Details Date Type Department Care Team (Late st Contact Info) Description 04/12/2019 8:24 PM EDT - 04/12/2019 8:56 PM EDT Emergency [facility] EMERGENCY DEPARTMENT [address] [place] [phone] Emergency, Triage Protocol, [place] [address] Discharge Disposition: Left Without Being Seen Social [...] CBC Auto Differential (04/12/2019 8:37 PM EDT) [facility] WBC 9.74 3.40 - 10.80 10*3/mm3 04/12/2019 8:56 PM EDT [facility] RBC 3.81 3.77 - 5.28 10*6/mm3 04/12/2019 8:56 PM EDT [facility] Hemoglobin 10.8(L) 12.0 - 15.9 g/dL 04/12/2019 8:56 PM EDT [facility] Hematocrit 34.7 34.0 - 46.6 % 04/12/2019 8:56 PM EDT [facility] MCV 91.1 79.0 - 97.0 fL 04/12/2019 8:56 PM EDT [facility] MCH 28.3 26.6 - 33.0 pg 04/12/2019 8:56 PM EDT [facility] MCHC 31.1(L) 31.5 - 35.7 g/dL 04/12/2019 8:56 PM EDT [facility] RDW 13.0 12.3 - 15.4 % 04/12/2019 8:56 PM EDT [facility] RDW-SD 42.8 37.0 - 54.0 fl 04/12/2019 8:56 PM EDT [facility] MPV 12.7(H) 6.0 - 12.0 fL 04/12/2019 8:56 PM EDT [facility] Platelets 252 140 - 450 10*3/mm3 04/12/2019 8:56 PM EDT [facility] Neutrophil % 61.6 42.7 - 76.0 % 04/12/2019 8:56 PM EDT [facility] Lymphocyte % 28.4 19.6 - 45.3 % 04/12/2019 8:56 PM EDT [facility] Monocyte % 5.6 5.0 - 12.0 % 04/12/2019 8:56 PM EDT [facility] Eosinophil % 3.7 0.3 - 6.2 % 04/12/2019 8:56 PM EDT [facility] Basophil % 0.4 0.0 - 1.5 % 04/12/2019 8:56 PM EDT [facility] Immature Grans % 0.3 0.0 - 0.5 % 04/12/2019 8:56 PM EDT [facility] Neutrophils, Absolute 5.99 1.70 - 7.00 10*3/mm3 04/12/2019 8:56 PM EDT [facility] Lymphocytes, Absolute 2.77 0.70 - 3.10 10*3/mm3 04/12/2019 8:56 PM EDT [facility] Monocytes, Absolute 0.55 0.10 - 0.90 10*3/mm3 04/12/2019 8:56 PM EDT [facility] Eosinophils, Absolute 0.36 0.00 - 0.40 10*3/mm3 04/12/2019 8:56 PM EDT [facility] Basophils, Absolute 0.04 0.00 - 0.20 10*3/mm3 04/12/2019 8:56 PM EDT [facility] Immature Grans, Absolute 0.03 0.00 - 0.05 10*3/mm3 04/12/2019 8:56 PM EDT [facility] nRBC 0.0 0.0 - 0.2 /100 WBC 04/12/2019 8:56 PM EDT [facility] Blood Venipuncture / Unknown 04/12/2019 8:37 PM EDT 04/12/2019 8:51 PM EDT us Triage Protocol Emergency MD LAB BLOOD ORDERABLE S Final Result [facility]
[address] [place] [address], * Gold Top - SST (04/12/2019 8:37 PM EDT) Extra Tube Hold for add-ons. 04/12/2019 10:21 PM EDT [facility] Comment:Auto resulted. Blood Venipuncture / Unknown 04/12/2019 8:37 PM EDT 04/12/2019 8:51 PM EDT us Triage Protocol Emergency MD LAB BLOOD ORDER ONL Y Final Result Performing Organization Address [facility]/ZIP Co de Phone Number [facility]
[address] [place] [address], * Lavender Top (04/12/2019 8:37 PM EDT) Extra Tube hold for add-on 04/12/2019 10:21 PM EDT [facility] Comment:Auto resulted Blood Venipuncture / Unknown 04/12/2019 8:37 PM EDT 04/12/2019 8:51 PM EDT us Triage Protocol Emergency MD LAB BLOOD ORDER ONL Y Final Result Performing Organization Address [facility] de Phone Number [facility]
[address] [place] [address], * Green Top (Gel) (04/12/2019 8:37 PM EDT) Extra Tube Hold for add-ons. 04/12/2019 10:21 PM EDT [facility] Comment:Auto resulted. Blood Venipuncture / Unknown 04/12/2019 8:37 PM EDT 04/12/2019 8:51 PM EDT us Triage Protocol Emergency MD LAB BLOOD ORDER ONL Y Final Result Performing Organization Address [facility] Co de Phone Number [facility]
[address] [place] [address], [place] [phone] * Light Blue Top (04/12/2019 8:37 PM EDT) Extra Tube hold for add-on 04/12/2019 10:21 PM EDT [facility] Comment:Auto resulted Blood Venipuncture / Unknown 04/12/2019 8:37 PM EDT 04/12/2019 8:51 PM EDT us Triage Protocol Emergency MD LAB BLOOD ORDER ONL Y Final Result Performing Organization Address [facility]/ZIP Co de Phone Number [facility]
[address] [place] [address], [place] [phone] * (ABNORMAL) BNP (04/12/2019 8:37 PM EDT) proBNP 892.6(H) 5.0 - 450.0 pg/mL 04/12/2019 9:13 PM EDT [facility] Blood Venipuncture / Unknown 04/12/2019 8:37 PM EDT 04/12/2019 8:51 PM EDT Narrative [facility] - 04/12/2019 9:13 PM EDT Among patients with dyspnea, NT-proBNP is highly sensitive for the detection of acute congestive heart failure. In addition NT-proBNP of <300 pg/ml effectively rules out acute congestive heart failure with 99% negative predictive value. us Kemi Hernandez MD LAB BLOOD ORDERABLES Final Res ult Performing Organization Address [facility] Co de Phone Number [facility]
[address] [place] [address], * Lipase (04/12/2019 8:37 PM EDT) Lipase 28 13 - 60 U/L 04/12/2019 9:20 PM EDT [facility] Blood Venipuncture / Unknown 04/12/2019 8:37 PM EDT 04/12/2019 8:51 PM EDT us Kemi Hernandez MD LAB BLOOD ORDERABLES Final Res ult Performing Organization Address [facility] Co de Phone Number [facility]
[address] [place] [address], [place] [phone] * (ABNORMAL) Comprehensive Metabolic Panel (04/12/2019 8:37 PM EDT) Glucose 195(H) 65 - 99 mg/dL 04/12/2019 9:20 PM EDT [facility] BUN 43(H) 6 - 20 mg/dL 04/12/2019 9:20 PM EDT [facility] Creatinine 4.04(H) 0.57 - 1.00 mg/dL 04/12/2019 9:20 PM EDT [facility] Sodium 140 136 - 145 mmol/L 04/12/2019 9:20 PM EDT [facility] Potassium 4.8 3.5 - 5.2 mmol/L 04/12/2019 9:20 PM EDT [facility] Chloride 103 98 - 107 mmol/L 04/12/2019 9:20 PM EDT [facility] CO2 22.0 22.0 - 29.0 mmol/L 04/12/2019 9:20 PM EDT [facility] Calcium 7.8(L) 8.6 - 10.5 mg/dL 04/12/2019 9:20 PM EDT [facility] Total Protein 7.2 6.0 - 8.5 g/dL 04/12/2019 9:20 PM EDT [facility] Albumin 3.90 3.50 - 5.20 g/dL 04/12/2019 9:20 PM EDT [facility] ALT (SGPT) 13 1 - 33 U/L 04/12/2019 9:20 PM EDT [facility] AST (SGOT) 10 1 - 32 U/L 04/12/2019 9:20 PM EDT [facility] Alkaline Phosphatase 63 39 - 117 U/L 04/12/2019 9:20 PM EDT [facility] Total Bilirubin <0.2(L) 0.2 - 1.2 mg/dL 04/12/2019 9:20 PM EDT [facility] eGFR Non Amer 13(L) >60 mL/min/1.7 3 04/12/2019 9:20 PM EDT [facility] Comment:<15 Indicative of ki dney failure. eGFR Amer 04/12/2019 9:20 PM EDT [facility] Comment:<15 Indicative of ki dney failure. Globulin 3.3 gm/dL 04/12/2019 9:20 PM EDT [facility] A/G Ratio 1.2 g/dL 04/12/2019 9:20 PM EDT [facility] BUN/Creatinine Ratio 10.6 7.0 - 25.0 04/12/2019 9:20 PM EDT [facility] Anion Gap 15.0 5.0 - 15.0 mmol/L 04/12/2019 9:20 PM EDT [facility] Blood Venipuncture / Unknown 04/12/2019 8:37 PM EDT 04/12/2019 8:51 PM EDT [facility] - 04/12/2019 9:20 PM EDT GFR Normal >60 Chronic Kidney Disease <60 Kidney Failure <15 us Kemi Hernandez MD LAB BLOOD ORDERABLES Final Res ult [facility]
[address] [place] [address], * Troponin (04/12/2019 8:37 PM EDT) Troponin T <0.010 0.000 - 0.030 ng/mL 04/12/2019 9:17 PM EDT [facility] Blood Venipuncture / Unknown 04/12/2019 8:37 PM EDT 04/12/2019 8:51 PM EDT [facility] - 04/12/2019 9:17 PM EDT Troponin [...] ORDERABLES Final Res ult Performing Organization Address City/[facility]/ZIP Co de Phone Number [facility]
[address] [place] [address], * ECG 12 Lead (04/12/2019 8:35 PM [...] ECG ORDERABLES Final Result Performing Organization Address [facility]/ZIP Co de Phone Number [facility] ECG documented in this encounter Visit Diagnoses Not on filedocumented in this encounter Active and Recently Administered Medications
--- OUTSIDE RECORDS SUMMARY | 2024-06-04 07:59 | XMS_ITS | Encounter Summary ---
Author Organization [facility] Address [address] [place] [address] Care Team Providers Care Billboard Poster Name Role Phone Unavailable Primary Care Provider Unavailabl e Encounter Details Date Type Department Care Team (Late st Contact Info) Description 01/03/2019 11:45 AM EDT Lab [facility] [address] [place] [address] Diabetes mellitus without complication Social [...] - 4.680 mIU/mL 01/03/2019 2:07 PM EDT [facility] Blood Venipuncture / Unknown 01/03/2019 11:57 AM EDT 01/03/2019 12:53 PM EDT Julisa Magdalena Andrew GOULDN LAB BLOOD ORDERABLES Fin al Result Performing Organization Address [facility] Co de Phone Number [facility]
[address] [place] [address], * (ABNORMAL) Lipid Panel (01/03/2019 11:57 AM EDT) Total Cholesterol 151 0 - 199 mg/dL 01/03/2019 1:20 PM EDT [facility] Triglycerides 346(H) <150 mg/dL 01/03/2019 1:20 PM EDT [facility] HDL Cholesterol 31(L) 40 - 60 mg/dL 01/03/2019 1:20 PM EDT [facility] LDL Cholesterol 51 0 - 99 mg/dL 01/03/2019 1:20 PM EDT [facility] VLDL Cholesterol 69.2 mg/dL 01/04/20 1:20 PM EDT [facility] LDL/HDL Ratio 1.64 01/03/2019 1:20 PM EDT [facility] Blood Venipuncture / Unknown 01/03/2019 11:57 AM EDT 01/03/2019 12:53 PM EDT Narrative [facility] - 01/03/2019 1:20 PM EDT Reference ranges for triglycerides, VLDL cholesterol, LDL cholesterol, and HDL cholesterol are not true population normal ranges but are threshold levels for increased risk of coronary artery disease established by ATP III guidelines from the National Cholesterol Education Program. Julisa Magdalena Morales APPLIQUER LAB BLOOD ORDERABLES Fin al Result Performing Organization Address [facility]/ZIP Co de Phone Number [facility]
[address] [place] [address], * (ABNORMAL) Comprehensive Metabolic Panel (01/03/2019 11:57 AM EDT) Glucose 258(H) 74 - 98 mg/dL 01/03/2019 1:20 PM EDT [facility] Comment:Glucose >180, Hemogl obin A1C recommended. BUN 46(H) 7 - 20 mg/dL 01/03/2019 1:20 PM EDT [facility] Creatinine 3.50(H) 0.60 - 1.30 mg/dL 01/03/2019 1:20 PM EDT [facility] Sodium 138 137 - 145 mmol/L 01/03/2019 1:20 PM EDT [facility] Potassium 5.0 3.5 - 5.1 mmol/L 01/03/2019 1:20 PM EDT [facility] Chloride 104 98 - 107 mmol/L 01/03/2019 1:20 PM EDT [facility] CO2 22.0(L) 26.0 - 30.0 mmol/L 01/03/2019 1:20 PM EDT [facility] Calcium 8.9 8.4 - 10.2 mg/dL 01/03/2019 1:20 PM EDT [facility] Total Protein 6.8 6.3 - 8.2 g/dL 01/03/2019 1:20 PM T [facility] Albumin 4.10 3.50 - 5.00 g/dL 01/03/2019 1:20 PM EDT [facility] ALT (SGPT) 28 13 - 69 U/L 01/03/2019 1:20 PM EDT [facility] AST (SGOT) 14(L) 15 - 46 U/L 01/03/2019 1:20 PM EDT [facility] Alkaline Phosphatase 67 38 - 126 U/L 01/03/2019 1:20 PM EDT [facility] Total Bilirubin 0.2 0.2 - 1.3 mg/dL 01/03/2019 1:20 PM EDT [facility] eGFR Non Amer 15(L) >60 mL/min/1.7 3 01/03/2019 1:20 PM EDT [facility] Globulin 2.7 gm/dL 01/03/2019 1:20 PM EDT [facility] A/G Ratio 1.5 1.0 - 2.0 g/dL 01/03/2019 1:20 PM EDT [facility] BUN/Creatinine Ratio 13.1 7.1 - 23.5 01/03/2019 1:20 PM EDT [facility] Anion Gap 17.0 10.0 - 20.0 mmol/L 01/03/2019 1:20 PM EDT [facility] Blood Venipuncture / Unknown 01/03/2019 11:57 AM EDT 01/03/2019 12:53 PM EDT Narrative [facility] - 01/03/2019 1:20 PM EDT GFR Normal >60 Chronic Kidney Disease <60 Kidney Failure <15 Julisa Morales APPLIQUER LAB BLOOD ORDERABLES Fin al Result [facility]
[address] [place] [address], [place] [phone] documented in this encounter Visit Diagnoses Diagnosis Diabetes mellitus without complication Type II or unspecified type diabetes mellitus without mention of complication, not stated as uncontrolled documented in this encounter
--- OUTSIDE RECORDS SUMMARY | 2024-06-04 07:59 | XMS_ITS | Encounter Summary ---
Author Organization [facility] Address [address] [place] [address] Care Team Providers Care Machine Wedger Name Role Phone Unavailable Primary Care Provider Unavailabl e Reason for Visit * (Emergency) - Closed Specialty Diagnoses / Procedures Referred By Contac t Referred To Contact Radiology Diagnoses Left leg pain Procedures XR Tibia Fibula 2 View Left Thomas, Fabiola Villafuerte MD [address] [place] [phone] Phone: tel: fax: Referral ID Status Reason Start Date Expiration Date Visits Re quested Visits Authorized [id number] Closed 01/29/2019 01/29/2020 1 1 Encounter Details Date Type Department Care Team (Latest Contact Info) Description 01/29/2019 3:33 PM EDT - 01/29/2019 11:59 PM EDT Hospital Encounter [facility] XRAY [address] [place] [address] Discharge Disposition: Home or Self [...]
--- OUTSIDE RECORDS SUMMARY | 2024-06-04 07:59 | XMS_ITS | Encounter Summary ---
Author Organization [facility] Address [address] [place] [address] Care Team Providers Care Money Examiner Name Role Phone Unavailable Primary Care Provider Unavailabl e Reason for Visit * Reason Comments Rash Diarrhea Encounter Details Date Type Department Care Team (Late st Contact Info) Description 12/24/2018 10:45 PM EDT - 12/25/2018 1:07 AM EDT Emergency [facility] [address] [place] [address] Phill Gama, DO [address] [place], [place] [id number] Urinary tract infection without hematuria, site unspecified [...] closely. Contact your primary care provider and/or larry operator tomorrow to discuss your blood glucose. Recheck in 1 to 2 days with your primary care provider. Increase your fluid intake. Return to the emergency department immediately for any change or worsening of symptoms. * Attachments The following attachments cannot be sent through Care Everywhere. * Chronic Kidney Disease Adult (Gibralt[place]) * Insulin Treatment for Diabetes Mellitus ([place]) documented in this encounter Medications at Time [...] SECTION 10/17/2012 ??? SECTION ??? INDUCED 2006 [facility] History reviewed. No pertinent family history. [...] pH, UA 7.0 5.0 - 8.0 Specific [place], UA 1.011 1.005 - 1.030 Glucose, UA [...] mL (1,000 mL Intravenous New Bag 12/24/18 0205) cefTRIAXone (ROCEPHIN) IVPB 1 g/50ml dextrose (premix) (0 g Intravenous Stopped 12/25/18 0038) ECG/EMG Results (last 24 hours) No results found for the last 24 hours. 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 ([facility]) Chronic kidney disease, stage IV (severe) ([facility]) Tinea corporis Tiago Dinh PA-C 12/25/18 0059 Tiago Dinh PA-C 12/25/18 0101 Cosigned by Phill Gama DO at 12/25/2018 2:22 AM EDT Associated attestation - Phill Gama DO - 12/25/2018 2:22 AM EDT For this patient encounter, I reviewed the BULLDOZER MECHANIC or PA documentation, treatment plan, and medical [...] - 10.80 10*3/mm3 12/24/2018 11:34 PM EDT [facility] RBC 3.57(L) 3.77 - 5.28 10*6/mm3 12/24/2018 11:34 PM EDT [facility] Hemoglobin 10.6(L) 12.0 - 15.9 g/dL 12/24/2018 11:34 PM EDT [facility] Hematocrit 31.7(L) 34.0 - 46.6 % 12/24/2018 11:34 PM EDT [facility] MCV 88.8 79.0 - 97.0 fL 12/24/2018 11:34 PM EDT [facility] MCH 29.7 26.6 - 33.0 pg 12/24[facility]2018 [facility] MCHC 33.4 31.5 - 35.7 g/dL 12/24/2018 11:[facility] RDW 12.5 12.3 - 15.4 % 12/24/2018 11:34 PM EDT [facility] RDW-SD 40.8 37.0 - 54.0 fl 12/24/2018 11:34 PM [facility] MPV 13.1(H) 6.0 - 12.0 fL 12/24/2018 11:34 PM EDT [facility] Platelets 230 140 - 450 10*3/mm3 12/24/2018 11:34 PM [facility] Neutrophil % 55.2 42.7 - 76.0 % 12/24/2018 11:34 PM EDT [facility] Lymphocyte % 34.8 19.6 - 45.3 % 12/24/2018 11:34 PM [facility] Monocyte % 6.0 5.0 - 12.0 % 12/24/2018 11:[facility] Eosinophil % 3.2 0.3 - 6.2 % 12/24/2018 11:[facility] Basophil % 0.5 0.0 - 1.5 % 12/24/2018 11:34 PM EDT [facility] Immature Grans % 0.3 0.0 - 0.5 % 12/24/2018 11:34 PM EDT [facility] Neutrophils, Absolute 5.06 1.70 - 7.00 10*3/mm3 12/24/2018 11:34 PM EDT [facility] Lymphocytes, Absolute 3.19(H) 0.70 - 3.10 10*3/mm3 12/24/2018 11:34 PM EDT [facility] Monocytes, Absolute 0.55 0.10 - 0.90 10*3/mm3 12/24/2018 11:34 PM EDT [facility] Eosinophils, Absolute 0.29 0.00 - 0.40 10*3/mm3 12/24/2018 11:34 PM EDT [facility] Basophils, Absolute 0.05 0.00 - 0.20 10*3/mm3 12/24/2018 11:34 PM EDT [facility] Immature Grans, Absolute 0.03 0.00 - 0.05 10*3/mm3 12/24/2018 11:34 PM EDT [facility] nRBC 0.0 0.0 - 0.2 /100 WBC 12/24/2018 11:34 PM EDT [facility] Blood Venipuncture / Unknown 12/24/2018 11:27 PM EDT 12/24/2018 11:31 PM EDT Tiago BurakWit studio PA-C LAB BLOOD ORDERABLES Fin al Result [facility]
[address] [place] [address], * Lactic Acid, Plasma (12/24/2018 11:27 PM EDT) [facility] Lactate 1.3 0.5 - 2.0 mmol/L 12/24/2018 11:45 PM EDT [facility] Blood Venipuncture / Unknown 12/24/2018 11:27 PM EDT 12/24/2018 11:31 PM EDT Moneyspyder PA-C LAB BLOOD ORDERABLES Fin al Result [facility]
[address] [place] [address], [place] [phone] * (ABNORMAL) Blood Gas, Venous (12/24/2018 11:26 PM EDT) [facility] Site OTHER 12/24/2018 11:26 PM EDT [facility] pH, Venous 7.376 7.320 - 7.420 pH Units 12/24/2018 11:26 PM EDT [facility] pCO2, Venous 44.8 40.0 - 50.0 mm Hg 12/24/2018 11:26 PM EDT [facility] pO2, Venous 23.3(L) 30.0 - 50.0 mm Hg 12/24/2018 11:26 PM EDT [facility] Comment:84 Value below refer ence range HCO3, Venous 26.3 22.0 - 28.0 mmol/L 12/24/2018 11:26 PM EDT [facility] Base Excess, Venous 0.8 0.0 - 2.0 mmol/L 12/24/2018 11:26 PM EDT [facility] O2 Saturation, Venous 38.9(L) 45.0 - 75.0 % 12/24/2018 11:26 PM EDT [facility] Comment:84 Value below refer ence range Barometric Pressure for Blood Gas 733 mmHg 12/24/2018 11:26 PM EDT [facility] Modality Room Air 12/24/2018 11:26 PM EDT [facility] FIO2 21 % 12/24/2018 11:26 PM EDT [facility] Ventilator Mode NA 9 11:26 PM EDT [facility] Comment:Meter: [id number] Inclusion Special Education Teacher: [id number] Venous Blood 12/24/2018 11:2 6 PM EDT 12/24/2018 11:26 PM EDT us Phill Gama DO LAB BLOOD ORDERABLES Final Res ult [facility]
[address] [place] [address], * (ABNORMAL) Comprehensive Metabolic Panel (12/24/2018 11:26 PM EDT) Glucose 311(H) 74 - 98 mg/dL 12/24/2018 11:46 PM EDT [facility] Comment:Glucose >180, Hemogl obin A1C recommended. BUN 45(H) 7 - 20 mg/dL 12/24/2018 11:46 PM [facility] Creatinine 3.30(H) 0.60 - 1.30 mg/dL 12/24/2018 11:46 PM [facility] Sodium 137 137 - 145 mmol/L 12/24/2018 11:46 PM [facility] Potassium 5.0 3.5 - 5.1 mmol/L 12/24/2018 11:46 PM [facility] Chloride 101 98 - 107 mmol/L 12/24/2018 11:46 PM [facility] CO2 25.0(L) 26.0 - 30.0 mmol/L 12/24/2018 11:46 PM [facility] Calcium 8.1(L) 8.4 - 10.2 mg/dL 12/24/2018 11:46 PM [facility] Total Protein 6.7 6.3 - 8.2 g/dL 12/24/2018 11:46 PM [facility] Albumin 3.80 3.50 - 5.00 g/dL 12/24/2018 11:46 PM [facility] ALT (SGPT) 24 13 - 69 U/L 12/24/2018 11:46 PM [facility] AST (SGOT) 14(L) 15 - 46 U/L 12/24/2018 11:46 PM [facility] Alkaline Phosphatase 77 38 - 126 U/L 12/24/2018 11:46 PM [facility] Total Bilirubin 0.3 0.2 - 1.3 mg/dL 12/24/2018 11:46 PM [facility] eGFR Non Amer 17(L) >60 mL/min/1.7 3 12/24/2018 11:46 PM [facility] Globulin 2.9 gm/dL 12/24/2018 11:46 PM [facility] A/G Ratio 1.3 1.0 - 2.0 g/dL 12/24/2018 11:46 PM EDT [facility] BUN/Creatinine Ratio 13.6 7.1 - 23.5 12/24/2018 11:46 PM EDT [facility] Anion Gap 16.0 10.0 - 20.0 mmol/L 12/24/2018 11:46 PM EDT [facility] Blood Venipuncture / Unknown 12/24/2018 11:26 PM EDT 12/24/2018 11:31 PM EDT Narrative [facility] - 12/24/2018 11:46 PM EDT GFR Normal >60 Chronic Kidney Disease <60 Kidney Failure <15 Tiago Dinh PA-C LAB BLOOD ORDERABLES Fin al Result [facility]
[address] [place] [id number], * Urine Culture - Urine, Urine, Clean Catch (12/24/2018 10:55 PM EDT) Urine Culture No growth KIRA 12/26/2018 5:43 AM EDT [facility] Urine Urine specimen collection, clean catch / Unknown Collection / Unknown 12/24/2018 10:55 PM EDT 12/24/2018 10:57 PM EDT us Tiago Dinh PA-C MICROBIOLOGY - GENERAL O RDERABLES Final Result [facility]
[address] [place] [id number], [place] [phone] * (ABNORMAL) Urinalysis, Microscopic Only - Urine, Clean Catch (12/24/2018 10:55 PM EDT) RBC, UA None Seen None Seen /HPF 12/24/2018 11:19 PM EDT [facility] WBC, UA 0-2(A) None Seen /HPF 12/24/2018 11:19 PM EDT [facility] Bacteria, UA Trace(A) None Seen /HPF 12/24/2018 11:19 PM EDT [facility] Squamous Epithelial Cells, UA 0-2 None Seen, 0-2 /HPF 12/24/2018 11:19 PM EDT [facility] Hyaline Casts, UA None Seen None Seen /LPF 12/24/2018 11:19 PM EDT [facility] Methodology Manual Light Microscopy 12/24/2018 11:19 PM EDT [facility] Urine Urine specimen collection, clean catch / Unknown Collection / Unknown 12/24/2018 10:55 PM EDT 12/24/2018 10:57 PM EDT Tiago Dinh PA-C URINE ORDERABLES Final R esult [facility]
[address] [place] [address], [place] [phone] * (ABNORMAL) Urinalysis With Culture If Indicated - Urine, Clean Catch (12/24/2018 10:55 PM EDT) Color, UA Dark Yellow(A) Yellow, Straw 12/24/2018 11:00 PM EDT [facility] Appearance, UA Clear Clear 12/24/2018 11:00 PM EDT [facility] pH, UA 7.0 5.0 - 8.0 12/24/2018 11:00 PM EDT [facility] Specific [place], UA 1.011 1.005 - 1.030 12/24/2018 11:00 PM EDT [facility] Glucose, UA 250 mg/dL (1+)(A) Negative 12/24/2018 11:00 PM EDT [facility] Ketones, UA Negative Negative 12/24/2018 11:00 PM EDT [facility] Bilirubin, UA Negative Negative 12/24/2018 11:00 PM EDT [facility] Blood, UA Negative Negative 12/24/2018 11:00 PM EDT [facility] Protein, UA 100 mg/dL (2+)(A) Negative 12/24/2018 11:00 PM EDT [facility] Leuk Esterase, UA Negative Negative 12/24/2018 11:00 PM EDT [facility] Nitrite, UA Positive(A) Negative 12/24/2018 11:00 PM EDT [facility] Urobilinogen, UA 1.0 E.U./dL 0.2 - 1.0 E.U./dL 12/24/2018 11:00 PM EDT [facility] Urine Urine specimen collection, clean catch / Unknown Collection / Unknown 12/24/2018 10:55 PM EDT 12/24/2018 10:57 PM EDT Tiago Dinh PA-C URINE ORDERABLES Final R esult [facility]
[address] [place] [id number], documented in this encounter Visit Diagnoses Diagnosis [...]
--- OUTSIDE RECORDS SUMMARY | 2024-06-04 07:59 | XMS_ITS | Encounter Summary ---
Author Organization [facility] Address [address] [place] [address] Care Team Providers Care University President Name Role Phone Unavailable Primary Care Provider Unavailabl e Reason for Referral * (Emergency) - Closed Specialty Diagnoses / Procedures Referred By Contac t Referred To Contact Radiology Diagnoses Left leg pain Procedures XR Tibia Fibula 2 View Left Fabiola Guzman MD [address] [place] [phone] Phone: tel: fax: Referral ID Status Reason Start Date Expiration Date Visits Re quested Visits Authorized [id number] Closed 01/29/2019 01/29/2020 1 1 Reason for Visit * (Emergency) - Closed Specialty Diagnoses / Procedures Referred By Contac t Referred To Contact Radiology Diagnoses Pain of left hip joint Procedures XR Hip With or Without Pelvis 2 - 3 View Left XR Hip With or Without Pelvis 4 View Left Fabiola Guzman MD [address] [place] [phone] Phone: tel: fax: Referral ID Status Reason Start Date Expiration Date Visits Re quested Visits Authorized [id number] Closed 01/29/2019 01/29/2020 1 1 Encounter Details Date Type Department Care Team (Latest Contact Info) Description 01/29/2019 3:26 PM EDT - 01/29/2019 11:59 PM EDT Hospital Encounter [facility] [address] [place] [address] Left leg pain; Low back pain, unspecified [...]
--- OUTSIDE RECORDS SUMMARY | 2024-06-04 07:59 | XMS_ITS | Encounter Summary ---
Author Organization [facility] Address [address] [place] [id number] Care Team Providers Care Exercise Planner Name Role Phone Unavailable Primary Care Provider Unavailabl e Reason for Visit * Reason Comments Chest Pain Hyperglycemia Encounter Details Date Type Department Care Team (Late st Contact Info) Description 01/04/2019 9:34 PM EDT - 01/05/2019 1:06 AM EDT Emergency [facility] EMERGENCY DEPARTMENT [address] [place] [phone] Jaquan Arenas, Chest pain, unspecified type [...] through Care Everywhere. * CHEST PAIN OBSERVATION (ROMANIAN) * Sinus Headache (Kittitian) documented in this encounter Medications at [...] SECTION 10/17/2012 ??? SECTION ??? INDUCED 2006 [facility] [...] For this patient encounter, I reviewed the YEAST PUMPER or PA documentation, treatment plan, and medical [...] - 0.034 ng/mL 01/05/2019 12:40 AM EDT [facility] Blood Venipuncture / Unknown 01/05/2019 12:11 AM EDT 01/05/2019 12:14 AM EDT Narrative [facility] - 01/05/2019 12:40 AM EDT Normal Patient Upper Reference Limit (URL) (99th Percentile)=0.03 ng/mL Non-AMI Illness Reference Limit=0.03-0.11 ng/mL AMI Confirmation=0.12 ng/mL and above us Rashard Moody PA-C LAB BLOOD ORDERABL ES Final Result [facility]
[address] [place] [address], * (ABNORMAL) POC Glucose Once (01/05/2019 12:02 AM EDT) Glucose 238(H) 70 - 130 mg/dL 01/05/2019 12:05 AM EDT [facility] Comment:Serial Number: [id number] Blood 01/05/2019 12:0 2 AM EDT 01/05/2019 12:05 AM EDT us Jaquan Arenas DO POINT OF CARE TEST ORDERABLES F inal Result [facility]
[address] [place] [id number], * (ABNORMAL) Urinalysis, Microscopic Only - Urine, Clean Catch (01/04/2019 10:12 PM EDT) Pathologist [facility] RBC, UA 3-5(A) None Seen /HPF 01/04/2019 10:39 PM EDT [facility] WBC, UA None Seen None Seen /HPF 01/04/2019 10:39 PM EDT [facility] Bacteria, UA Trace(A) None Seen /HPF 01/04/2019 10:39 PM EDT [facility] Squamous Epithelial Cells, UA 3-6(A) None Seen, 0-2 /HPF 01/04/2019 10:39 PM EDT [facility] Hyaline Casts, UA None Seen None Seen /LPF 01/04/2019 10:39 PM EDT [facility] Methodology Manual Light Microscopy 01/04/2019 10:39 PM EDT [facility] Urine Urine specimen collection, clean catch / Unknown Collection / Unknown 01/04/2019 10:12 PM EDT 01/04/2019 10:17 PM EDT us Jaquan Arenas DO URINE ORDERABLES Final Result [facility]
[address] [place] [address], [place] [phone] * Green Top (No Gel) (01/04/2019 10:12 PM EDT) Extra Tube Hold for add-ons. 01/04/2019 11:15 PM EDT [facility] Comment:Auto resulted. Blood Venipuncture / Unknown 01/04/2019 10:12 PM EDT 01/04/2019 10:18 PM EDT us Jaquan Arenas DO LAB BLOOD ORDER ONLY Final Resu lt Performing Organization Address City/[facility]/ZIP Co de Phone Number [facility]
[address] [place] [phone], * Gold Top - SST (01/04/2019 10:12 PM EDT) Extra Tube Hold for add-ons. 01/04/2019 11:15 PM EDT [facility] Comment:Auto resulted. Blood Venipuncture / Unknown 01/04/2019 10:12 PM EDT 01/04/2019 10:17 PM EDT us Jaquan Arenas DO LAB BLOOD ORDER ONLY Final Resu lt Performing Organization Address City/[facility]/ZIP Co de Phone Number [facility]
[address] [place] [address], [place] [phone] * Lavender Top (01/04/2019 10:12 PM EDT) Extra Tube hold for add-on 01/04/2019 11:15 PM EDT [facility] Comment:Auto resulted Blood Venipuncture / Unknown 01/04/2019 10:12 PM EDT 01/04/2019 10:17 PM EDT us Jaquan Arenas DO LAB BLOOD ORDER ONLY Final Resu lt [facility]
[address] [place] [address], [place] [phone] * Green Top (Gel) (01/04/2019 10:12 PM EDT) Extra Tube Hold for add-ons. 01/04/2019 11:15 PM EDT [facility] Comment:Auto resulted. Blood Venipuncture / Unknown 01/04/2019 10:12 PM EDT 01/04/2019 10:18 PM EDT us Jaquan Arenas LAB BLOOD ORDER ONLY Final Resu lt Performing Organization Address City/[facility]/ZIP Co de Phone Number [facility]
[address] [place] [address], [place] [phone] * Light Blue Top (01/04/2019 10:12 PM EDT) Extra Tube hold for add-on 01/04/2019 11:15 PM EDT [facility] Comment:Auto resulted Blood Venipuncture / Unknown 01/04/2019 10:12 PM EDT 01/04/2019 10:18 PM EDT Jaquan Arenas LAB BLOOD ORDER ONLY Final Resu lt Performing Organization Address City/[facility]/ZIP Co de Phone Number [facility]
[address] [place] [address], * (ABNORMAL) Urinalysis With Microscopic If Indicated (No Culture) - Urine, Clean Catch (01/04/2019 10:12 PM EDT) Color, UA Yellow Yellow, Straw 01/04/2019 10:39 PM EDT [facility] Appearance, UA Clear Clear 01/04/2019 10:39 PM EDT [facility] pH, UA 6.0 5.0 - 8.0 01/04/2019 10:39 PM EDT [facility] Specific [place], UA 1.013 1.005 - 1.030 01/04/2019 10:39 PM EDT [facility] Glucose, UA >=1000 mg/dL (3+)(A) Negative 01/04/2019 10:39 PM EDT [facility] Ketones, UA Negative Negative 01/04/2019 10:39 PM EDT [facility] Bilirubin, UA Negative Negative 01/04/2019 10:39 PM EDT [facility] Blood, UA Trace(A) Negative 01/04/2019 10:39 PM EDT [facility] Protein, UA >=300 mg/dL (3+)(A) Negative 01/04/2019 10:39 PM EDT [facility] Leuk Esterase, UA Negative Negative 01/04/2019 10:39 PM EDT [facility] Nitrite, UA Negative Negative 01/04/2019 10:39 PM EDT [facility] Urobilinogen, UA 0.2 E.U./dL 0.2 - 1.0 E.U./dL 01/04/2019 10:39 PM EDT [facility] Urine Urine specimen collection, clean catch / Unknown Collection / Unknown 01/04/2019 10:12 PM EDT 01/04/2019 10:17 PM EDT us Jaquan Arenas DO URINE ORDERABLES Final Result [facility]
[address] [place] [address], * , Urine - Urine, Clean Catch (01/04/2019 10:12 PM EDT) HCG, Urine QL Negative Negative 01/04/2019 10:25 PM EDT [facility] Urine Urine specimen collection, clean catch / Unknown Collection / Unknown 01/04/2019 10:12 PM EDT 01/04/2019 10:17 PM EDT us Jaquan Arenas DO URINE ORDERABLES Final Result [facility]
[address] [place] [address], [place] [phone] * (ABNORMAL) CBC Auto Differential (01/04/2019 10:12 PM EDT) WBC 9.42 3.40 - 10.80 10*3/mm3 01/04/2019 10:21 PM EDT [facility] RBC 3.60(L) 3.77 - 5.28 10*6/mm3 01/04/2019 10:21 PM EDT [facility] Hemoglobin 10.2(L) 12.0 - 15.9 g/dL 01/04/2019 10:21 PM EDT [facility] Hematocrit 31.6(L) 34.0 - 46.6 % 01/04/2019 10:21 PM EDT [facility] MCV 87.8 79.0 - 97.0 fL 01/04/2019 10:21 PM EDT [facility] MCH 28.3 26.6 - 33.0 pg 01/04/2019 10:21 PM EDT [facility] MCHC 32.3 31.5 - 35.7 g/dL 01/04/2019 10:21 PM EDT [facility] RDW 12.8 12.3 - 15.4 % 01/04/2019 10:21 PM EDT [facility] RDW-SD 40.7 37.0 - 54.0 fl 01/04/2019 10:21 PM EDT [facility] MPV 12.7(H) 6.0 - 12.0 fL 01/04/2019 10:21 PM EDT [facility] Platelets 217 140 - 450 10*3/mm3 01/04/2019 10:21 PM EDT [facility] Neutrophil % 53.3 42.7 - 76.0 % 01/04/2019 10:21 PM EDT [facility] Lymphocyte % 34.3 19.6 - 45.3 % 01/04/2019 10:21 PM EDT [facility] Monocyte % 7.1 5.0 - 12.0 % 01/04/2019 10:21 PM EDT [facility] Eosinophil % 4.6 0.3 - 6.2 % 01/04/2019 10:21 PM EDT [facility] Basophil % 0.3 0.0 - 1.5 % 01/04/2019 10:21 PM EDT [facility] Immature Grans % 0.4 0.0 - 0.5 % 01/04/2019 10:21 PM EDT [facility] Neutrophils, Absolute 5.02 1.70 - 7.00 10*3/mm3 01/04/2019 10:21 PM EDT [facility] Lymphocytes, Absolute 3.23(H) 0.70 - 3.10 10*3/mm3 01/04/2019 10:21 PM EDT [facility] Monocytes, Absolute 0.67 0.10 - 0.90 10*3/mm3 01/04/2019 10:21 PM EDT [facility] Eosinophils, Absolute 0.43(H) 0.00 - 0.40 10*3/mm3 01/04/2019 10:21 PM EDT [facility] Basophils, Absolute 0.03 0.00 - 0.20 10*3/mm3 01/04/2019 10:21 PM EDT [facility] Immature Grans, Absolute 0.04 0.00 - 0.05 10*3/mm3 01/04/2019 10:21 PM EDT [facility] nRBC 0.0 0.0 - 0.2 /100 WBC 01/04/2019 10:21 PM EDT [facility] Blood Venipuncture / Unknown 01/04/2019 10:12 PM EDT 01/04/2019 10:17 PM EDT us Jaquan Arenas DO LAB BLOOD ORDERABLES Final Resu lt [facility]
[address] [place] [address], * Troponin (01/04/2019 10:12 PM EDT) Troponin I <0.012 0.000 - 0.034 ng/mL 01/04/2019 10:48 PM EDT [facility] Blood Venipuncture / Unknown 01/04/2019 10:12 PM EDT 01/04/2019 10:18 PM EDT Narrative [facility] - 01/04/2019 10:48 PM EDT Normal Patient Upper Reference Limit (URL) (99th Percentile)=0.03 ng/mL Non-AMI Illness Reference Limit=0.03-0.11 ng/mL AMI Confirmation=0.12 ng/mL and above us Jaquan Arenas DO LAB BLOOD ORDERABLES Final Resu lt [facility]
[address] [place] [id number], * (ABNORMAL) Comprehensive Metabolic Panel (01/04/2019 10:12 PM EDT) Glucose 320(H) 74 - 98 mg/dL 01/04/2019 10:48 PM EDT [facility] Comment:Glucose >180, Hemogl obin A1C recommended. BUN 42(H) 7 - 20 mg/dL 01/04/2019 10:48 PM EDT [facility] Creatinine 3.30(H) 0.60 - 1.30 mg/dL 01/04/2019 10:48 PM EDT [facility] Sodium 136(L) 137 - 145 mmol/L 01/04/2019 10:48 PM EDT [facility] Potassium 4.2 3.5 - 5.1 mmol/L 01/04/2019 10:48 PM EDT [facility] Chloride 102 98 - 107 mmol/L 01/04/2019 10:48 PM EDT [facility] CO2 22.0(L) 26.0 - 30.0 mmol/L 01/04/2019 10:48 PM EDT [facility] Calcium 8.1(L) 8.4 - 10.2 mg/dL 01/04/2019 10:48 PM EDT [facility] Total Protein 7.0 6.3 - 8.2 g/dL 01/04/2019 10:48 PM EDT [facility] Albumin 4.00 3.50 - 5.00 g/dL 01/04/2019 10:48 PM EDT [facility] ALT (SGPT) 23 13 - 69 U/L 01/04/2019 10:48 PM EDT [facility] AST (SGOT) 13(L) 15 - 46 U/L 01/04/2019 10:48 PM EDT [facility] Alkaline Phosphatase 71 38 - 126 U/L 01/04/2019 10:48 PM EDT [facility] Total Bilirubin 0.1(L) 0.2 - 1.3 mg/dL 01/04/2019 10:48 PM EDT [facility] eGFR Non Amer 17(L) >60 mL/min/1.7 3 01/04/2019 10:48 PM EDT [facility] Globulin 3.0 gm/dL 01/04/2019 10:48 PM EDT [facility] A/G Ratio 1.3 1.0 - 2.0 g/dL 01/04/2019 10:48 PM EDT [facility] BUN/Creatinine Ratio 12.7 7.1 - 23.5 01/04/2019 10:48 PM EDT [facility] Anion Gap 16.2 10.0 - 20.0 mmol/L 01/04/2019 10:48 PM EDT [facility] Blood Venipuncture / Unknown 01/04/2019 10:12 PM EDT 01/04/2019 10:18 PM EDT Narrative [facility] - 01/04/2019 10:48 PM EDT GFR Normal >60 Chronic Kidney Disease <60 Kidney Failure <15 us Jaquan Arenas DO LAB BLOOD ORDERABLES Final Resu lt [facility]
[address] [place] [address], * XR Chest 2 View (01/04/2019 9:55 PM EDT) Anatomical Region Laterality Modality Body N/A Radiographic Kim ging 01/05/2019 7:52 AM EDT Impressions 01/05/2019 7:52 AM EDT No acute cardiopulmonary process. This report was finalized on 01/05/2019 7:52 AM by Brittny Lacey M.D.. Narrative 01/05/2019 7:52 AM EDT PROCEDURE: [...] - 130 mg/dL 01/04/2019 9:45 PM EDT [facility] Comment:Serial Number: [id number] Blood 01/04/2019 9:40 PM EDT 01/04/2019 9:45 PM EDT us Jaquan Arenas DO POINT OF CARE TEST ORDERABLES F inal Result [facility]
[address] [place] [id number], [place] [phone] documented in this encounter Visit Diagnoses Diagnosis [...]
--- OUTSIDE RECORDS SUMMARY | 2024-06-04 07:59 | XMS_ITS | Encounter Summary ---
Author Organization [facility] Address [address] [place] [id number] Care Team Providers Care Ct Tech Name Role Phone Unavailable Primary Care Provider Unavailabl e Reason for Referral * Hospital - Outpatient (Emergency) - Closed Specialty Diagnoses / Procedures Referred By Contac t Referred To Contact Radiology Diagnoses Left leg pain Procedures US Venous Doppler Lower Extremity Left (duplex) Fabiola Guzman MD [address] [place] [phone] Phone: tel: fax: Referral ID Status Reason Start Date Expiration Date Visits Re quested Visits Authorized [id number] Closed 01/29/2019 01/29/2020 1 1 Reason for Visit * Hospital - Outpatient (Emergency) - Closed Specialty Diagnoses / Procedures Referred By Contac t Referred To Contact Radiology Diagnoses Left leg pain Procedures US Venous Doppler Lower Extremity Left (duplex) Fabiola Guzman MD [address] [place] [phone] Phone: tel: fax: Referral ID Status Reason Start Date Expiration Date Visits Re quested Visits Authorized [id number] Closed 01/29/2019 01/29/2020 1 1 Encounter Details Date Type Department Care Team (Latest Contact Info) Description 01/29/2019 3:26 PM EDT - 01/29/2019 11:59 PM EDT Hospital Encounter [address] [phone] Fabiola Guzman MD [facility] [place] [id number] Left leg pain Discharge Disposition: Home or [...]
--- OUTSIDE RECORDS SUMMARY | 2024-06-04 07:59 | XMS_ITS | Encounter Summary ---
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 May use topical steroids and qwjw-pay-yvfuwla antibiotic ointment on the area for the [...] through Care Everywhere. * Wound Care Adult (Cook Islander) documented in this encounter Medications at [...] ??? SECTION ??? INDUCED 2006 [facility] History reviewed. No pertinent family history. Social [...] For this patient encounter, I reviewed the PRINTED FORMS PROOFREADER or PA documentation, treatment plan, and medical decision making. Phill Gama DO 05/02/2019 12:31 AM documented in this encounter Plan of Treatment Not on file documented as of this encounter Visit Diagnoses Diagnosis Visit for wound check- Primary documented in this encounter
--- OUTSIDE RECORDS SUMMARY | 2024-06-04 07:59 | XMS_ITS | Encounter Summary ---
Author Organization [facility] Address [address] [place] [id number] Care Team Providers Care Bi Developer Name Role Phone Unavailable Primary Care Provider Unavailabl e Reason for Visit * Reason Onset Date Comments Other 03/06/2019 Ayah with Disab ility Determination Encounter Details Date Type Department Care Team (Late st Contact Info) Description 03/06/2019 Telephone [facility] [address] [facility] [address] [place] [address] Mare Johnston MD [address] [facility] [address] [place] [address] Other (Ayah with Disability Determination) Social History [...] REQUEST Contact: AYAH WITH DISABILITY DETERMINATIONS IN [place] CALLED REGARDING MEDICAL RECORDS REQUEST CALL AYAH BACK REGARDING THIS documented in this encounter Plan of Treatment Not on file documented as of this encounter Visit Diagnoses Not on filedocumented in this encounter
[2024-06-04 08:00] LABS: Microscopic, Urine URINE MICROSCOPIC (MICROSCOPIC)
--- OUTSIDE RECORDS SUMMARY | 2024-06-04 08:00 | XMS_ITS | Encounter Summary ---
Author Organization [facility] Address [address] [place] [id number] Care Team Providers Care Director Career Services Name Role Phone Unavailable Primary Care Provider Unavailabl e Reason for Visit * Reason Comments Fall Encounter Details Date Type Department Care Team (Late st Contact Info) Description 10/09/2018 7:27 PM EDT - 10/09/2018 9:06 PM EDT Emergency [facility] EMERGENCY DEPARTMENT [address] [place] [phone] Dominik Rizo MD [address] [place] [address] Acute right-sided low back pain without sciatica [...] Care Everywhere. * Acute Back Pain Adult (Greek) * Knee Pain Adult [id number] (Greek) documented in this encounter Medications at Time [...]
--- OUTSIDE RECORDS SUMMARY | 2024-06-04 08:00 | XMS_ITS | Encounter Summary ---
Author Organization [facility] Address [address] [place] [address] Care Team Providers Care Flag Decorator Name Role Phone Unavailable Primary Care Provider Unavailabl e Reason for Visit * (Emergency) - Closed Specialty Diagnoses / Procedures Referred By Contac t Referred To Contact Radiology Diagnoses Left knee pain, unspecified chronicity Procedures XR knee 3 vw left Thomas, Fabiola Villafuerte MD [address] [place] [phone] Phone: tel: fax: Referral ID Status Reason Start Date Expiration Date Visits Re quested Visits Authorized [id number] Closed 09/25/2018 09/25/2019 1 1 Encounter Details Date Type Department Care Team (Latest Contact Info) Description 09/25/2018 2:05 PM EDT - 09/25/2018 11:59 PM EDT Hospital Encounter [facility] XRAY [address] [place] [address] Discharge Disposition: Home or Self [...] Laterality Modality Lower Extremities, Knee Left Radiogra [facility] 09/25/2018 2:34 PM EDT Impressions 09/25/2018 [...]
--- OUTSIDE RECORDS SUMMARY | 2024-06-04 08:00 | XMS_ITS | Encounter Summary ---
[facility] Organization [facility] Address [address] [place] [address] Care Team Providers Care Exercise Teacher Name Role Phone Unavailable Primary Care Provider Unavailabl e Encounter Details Date Type Department Care Team (Late st Contact Info) Description 08/28/2018 9:40 AM EST Lab [facility] [address] [place] [address] Chronic kidney disease, stage IV [...] 0-2(A) None Seen /HPF 08/28/2018 10:13 AM [facility] WBC, UA 0-2(A) None Seen /HPF 08/28/2018 10:13 AM EST [facility] Bacteria, UA Trace(A) None Seen /HPF 08/28/2018 10:13 AM [facility] Squamous Epithelial Cells, UA 0-2 None Seen, 0-2 /HPF 08/28/2018 10:13 AM EST [facility] Hyaline Casts, UA None Seen None Seen /LPF 08/28/2018 10:13 AM [facility] Methodology Manual Light Microscopy 08/28/2018 10:13 AM [facility] Urine Urine specimen collection, clean catch / Unknown Collection / Unknown 08/28/2018 9:39 AM EST 08/28/2018 9:57 AM EST us Mukul Stevens MD URINE ORDERABLES Final Result [facility]
[address] [place] [address], [place] [phone] * (ABNORMAL) Urinalysis without microscopic (no culture) - Urine, Clean Catch (08/28/2018 9:39 AM EST) Color, UA Yellow Yellow, Straw 08/28/2018 10:04 AM [facility] Appearance, UA Clear Clear 08/28/2018 10:04 AM [facility] pH, UA 7.0 5.0 - 8.0 08/28/2018 10:04 AM [facility] Specific [place], UA 1.015 1.005 - 1.030 08/28/2018 10:04 AM [facility] Glucose, UA 100 mg/dL (Trace)(A) Negative 08/28/2018 10:04 AM [facility] Ketones, UA Negative Negative 08/28/2018 10:04 AM [facility] Bilirubin, UA Negative Negative 08/28/2018 10:04 AM [facility] Blood, UA Trace(A) Negative 08/28/2018 10:04 AM [facility] Protein, UA 100 mg/dL (2+)(A) Negative 08/28/2018 10:04 AM [facility] Leuk Esterase, UA Negative Negative 08/28/2018 10:04 AM [facility] Nitrite, UA Negative Negative 08/28/2018 10:04 AM [facility] Urobilinogen, UA 0.2 E.U./dL 0.2 - 1.0 E.U./dL 08/28/2018 10:04 AM [facility] Urine Urine specimen collection, clean catch / Unknown Collection / Unknown 08/28/2018 9:39 AM EST 08/28/2018 9:57 AM EST Mukul Stevens MD URINE ORDERABLES Final Result [facility]
[address] [place] [address], [place] [phone] * (ABNORMAL) PTH, Intact (08/28/2018 9:39 AM EST) PTH, Intact 210(H) 15 - 65 pg/mL 08/29/2018 2:14 PM [facility] Blood Venipuncture / Unknown 08/28/2018 9:39 AM EST 08/28/2018 9:58 AM EST Narrative [facility] - 08/29/2018 2:14 PM EST Performed at: ?? - Lab[address] ??[id number] Laundry Assistant: Jacob Whaley PhD, Phone: ??[phone] us Mukul Stevens MD LAB BLOOD ORDERABLES F inal Result Performing Organization Address City/[facility]/[place] [address], * Ferritin (08/28/2018 9:39 AM EST) Pathologist [facility] Ferritin 54.20 6.24 - 137.00 ng/mL 08/28/2018 11:12 AM EST [facility] Blood Venipuncture / Unknown 08/28/2018 9:39 AM EST 08/28/2018 9:58 AM EST us Mukul Stevens MD LAB BLOOD ORDERABLES F inal Result [facility]
[address] [place] [address], * Urine Culture - Urine, Urine, Clean Catch (08/28/2018 9:39 AM EST) Pathologist [facility] Urine Culture No growth KIRA 08/30/2018 7:40 AM EST [facility] Urine Urine specimen collection, clean catch / Unknown Collection / Unknown 08/28/2018 9:39 AM EST 08/28/2018 9:57 AM EST Mukul Stevens MD MICROBIOLOGY - GENERAL ORDERABLES Final Result Performing Organization Address City/[facility]/ZIP Co de Phone Number [facility]
[address] [place] [address], [place] [phone] * Iron Profile (08/28/2018 9:39 AM EST) Iron 48 37 - 181 mcg/dL 08/28/2018 11:12 AM EST [facility] TIBC 419 261 - 497 mcg/dL 08/28/2018 11:12 AM EST [facility] Iron Saturation (TSAT) 11 11 - 46 % 08/28/2018 11:12 AM EST [facility] Blood Venipuncture / Unknown 08/28/2018 9:39 AM EST 08/28/2018 9:58 AM EST uMkul Stevens MD LAB BLOOD ORDERABLES F inal Result [facility]
[address] [place] [address], [place] [phone] documented in this encounter Visit Diagnoses Diagnosis Chronic kidney disease, stage IV (severe) Chronic kidney disease, Stage IV (severe) documented in this encounter
--- OUTSIDE RECORDS SUMMARY | 2024-06-04 08:00 | XMS_ITS | Encounter Summary ---
[facility] Address [address] [place] [id number] Care Team Providers Care Shipyard Painter Helper Name Role Phone Unavailable Primary Care Provider Unavailabl e Reason for Visit * Reason Comments Arm Pain Encounter Details Date Type Department Care Team (Late st Contact Info) Description 09/01/2018 1:01 PM EST - 09/01/2018 2:23 PM EST Emergency [facility] EMERGENCY DEPARTMENT [address] [place] [phone] Krissy Bowman MD Closed fracture of [...] sent through Care Everywhere. * Ulnar Fracture (Guatemalan) documented in this encounter Medications at Time [...] For this patient encounter, I reviewed the ONLINE MERCHANDISING SPECIALIST or PA documentation, treatment plan, and medical decision making. Krissy Bowman MD 09/01/2018 7:40 PM documented in this encounter Plan of Treatment Not on file documented as of this encounter Procedures Procedure Name Priority Date/Time Associated Diagnosis Comments XR ELBOW 3+ VW LEFT STAT 09/01/2018 1 :38 PM EST [place] APPLICATION CAST SHOULDER HAND LONG ARM Routine 09/01/2018 1:18 PM EST [place] APPLICATION LONG ARM SPLINT SHOULDER HAND Routine [...] DIAGNOSTIC ANURAG GING ORDERABLES Final Result * [place] APPLICATION LONG ARM SPLINT SHOULDER HAND, [place] APPLICATION CAST SHOULDER HAND LONG ARM (09/01/2018 [...]
--- OUTSIDE RECORDS SUMMARY | 2024-06-04 08:00 | XMS_ITS | Encounter Summary ---
Author Organization [facility] Address [address] [place] [address] Care Team Providers Care Utility Manager Name Role Phone Unavailable Primary Care Provider Unavailabl e Reason for Visit * (Emergency) - Closed Specialty Diagnoses / Procedures Referred By Contac t Referred To Contact Radiology Diagnoses Low back pain without sciatica, unspecified back pain laterality, unspecified chronicity Procedures XR Spine Lumbar 2 or 3 View XR spine lumbar 4+ vw Faboila Guzman MD [address] [place] [phone] Phone: tel: fax: Referral ID Status Reason Start Date Expiration Date Visits Re quested Visits Authorized [id number] Closed 09/25/2018 09/25/2019 1 1 Encounter Details Date Type Department Care Team (Late st Contact Info) Description 09/25/2018 1:30 PM EDT - 09/25/2018 11:59 PM EDT Hospital Encounter [facility] XRAY [address] [place] [address] Ming Low MD [address] [facility] [address] [place] [address] Discharge Disposition: Home or Self Care Social [...]
--- OUTSIDE RECORDS SUMMARY | 2024-06-04 08:00 | XMS_ITS | Encounter Summary ---
[facility] Organization [facility] Address [address] [place] [address] Care Team Providers Care Audit Manager Name Role Phone Unavailable Primary Care Provider Unavailabl e Encounter Details Date Type Department Care Team (Late st Contact Info) Description 12/12/2018 11:15 AM EDT Consult [facility]EMAT[facility]Y [address] [facility] [address] [facility] [address] [place] [address] Mare Johnston MD [address] [facility] [address] [place] [address] Anemia due to chronic kidney disease, unspecified [...] 10/17/2012 ??? SECTION ??? INDUCED 2006 [facility] Social History Socioeconomic History ??? Marital status: [...] begin procrit. I will defer to her director of grants regarding the timing of initiating Procrit treatment. [...]
--- OUTSIDE RECORDS SUMMARY | 2024-06-04 08:00 | XMS_ITS | Encounter Summary ---
[facility] Organization [facility] Address [address] [place] [address] Care Team Providers Care Wheelabrator Operator Name Role Phone Unavailable Primary Care Provider Unavailabl e Encounter Details Date Type Department Care Team (Late st Contact Info) Description 10/11/2018 Telephone [facility] UROLOGY [address] [address] Fabiola Guzman MD [address] [place], [place] [phone] Social History Tobacco Use Types Packs/Day Years [...]
--- OUTSIDE RECORDS SUMMARY | 2024-06-04 08:00 | XMS_ITS | Encounter Summary ---
Author Organization [facility] Address [address] [place] [address] Care Team Providers Care Monitoring Specialist Name Role Phone Unavailable Primary Care Provider Unavailabl e Reason for Visit * Hospital - Outpatient (Emergency) - Closed Specialty Diagnoses / Procedures Referred By Contac t Referred To Contact Radiology Diagnoses Hematuria, unspecified type Procedures US renal bilateral Thomas, Fabiola Villafuerte MD [address] [place] [phone] Phone: tel: fax: Referral ID Status Reason Start Date Expiration Date Visits Re quested Visits Authorized [id number] Closed 09/25/2018 09/25/2019 1 1 Encounter Details Date Type Department Care Team (Latest Contact Info) Description 09/25/2018 2:45 PM EDT - 09/25/2018 11:59 PM EDT Hospital Encounter [address] [phone] Discharge Disposition: Home or Self [...]
--- OUTSIDE RECORDS SUMMARY | 2024-06-04 08:00 | XMS_ITS | Encounter Summary ---
Author Organization [facility] Address [address] [place] [phone] Care Team Providers Care Chemist Food Name Role Phone Unavailable Primary Care Provider Unavailabl e Reason for Visit * Reason Comments Knee Pain Encounter Details Date Type Department Care Team (Late st Contact Info) Description 09/22/2018 8:20 PM EST - 09/22/2018 9:30 PM EST Emergency [facility] EMERGENCY DEPARTMENT [address] [place] [phone] Dominik Rizo MD [address] [place] [address] Sprain of left knee, unspecified ligament, initial [...] through Care Everywhere. * Knee Sprain Adult (Central African) documented in this encounter Medications at Time [...] For this patient encounter, I reviewed the SHIRT TURNER or PA documentation, treatment plan, and medical [...] Laterality Modality Lower Extremities, Knee Left [facility] 09/23/2018 8:55 AM EST Impressions 09/23/2018 [...]
--- OUTSIDE RECORDS SUMMARY | 2024-06-04 08:00 | XMS_ITS | Encounter Summary ---
Author Organization [facility] [place] Address [address] [place] [phone] Care Team Providers Care Marketing Producer Name Role Phone Unavailable Primary Care Provider Unavailabl e Reason for Visit * Reason Comments Dysuria Encounter Details Date Type Department Care Team (Late st Contact Info) Description 12/21/2018 1:55 AM EDT - 12/21/2018 3:13 AM EDT Emergency [facility] EMERGENCY DEPARTMENT [address] [place] [phone] Jaquan Arenas, Urinary tract infection without [...] Care Everywhere. * Urinary Tract Infection Adult (Citizen [place]) * Chronic Kidney Disease Adult (Citizen [place]) documented in this encounter Medications at Time [...] ??? SECTION ??? INDUCED 2006 [facility] History reviewed. No pertinent family [...] unspecified Chronic renal failure, stage 4 (severe) (CMS/[facility]ERLY [facility]) Jaquan Arenas DO 12/21/18 0458 * Roxann [...] None Seen /HPF 12/21/2018 2:56 AM EDT [facility] WBC, UA 3-5(A) None Seen /HPF 12/21/2018 2:56 AM EDT [facility] Bacteria, UA Trace(A) None Seen /HPF 12/21/2018 2:56 AM EDT [facility] Squamous Epithelial Cells, UA 3-6(A) None Seen, 0-2 /HPF 12/21/2018 2:56 AM EDT [facility] Hyaline Casts, UA None Seen None Seen /LPF 12/21/2018 2:56 AM EDT [facility] WBC Clumps, UA Small/1+ None Seen /HPF 12/21/2018 2:56 AM EDT [facility] Methodology Manual Light Microscopy 12/21/2018 2:56 AM EDT [facility] Urine Urine specimen collection, clean catch / Unknown Collection / Unknown 12/21/2018 2:38 AM EDT 12/21/2018 2:45 AM EDT Jaquan Arenas DO URINE ORDERABLES Final Result [facility]
[address] [place] [address], * (ABNORMAL) Urinalysis With Culture If Indicated - Urine, Clean Catch (12/21/2018 2:38 AM EDT) Color, UA Yellow Yellow, Straw 12/21/2018 2:48 AM EDT [facility] Appearance, UA Clear Clear 12/21/2018 2:48 AM EDT [facility] pH, UA 6.5 5.0 - 8.0 12/21/2018 2:48 AM EDT [facility] Specific [place], UA 1.013 1.005 - 1.030 12/21/2018 2:48 AM EDT [facility] Glucose, UA 250 mg/dL (1+)(A) Negative 12/21/2018 2:48 AM EDT [facility] Ketones, UA Negative Negative 12/21/2018 2:48 AM EDT [facility] Bilirubin, UA Negative Negative 12/21/2018 2:48 AM EDT [facility] Blood, UA Trace(A) Negative 12/21/2018 2:48 AM EDT [facility] Protein, UA >=300 mg/dL (3+)(A) Negative 12/21/2018 2:48 AM EDT [facility] Leuk Esterase, UA Negative Negative 12/21/2018 2:48 AM EDT [facility] Nitrite, UA Negative Negative 12/21/2018 2:48 AM EDT [facility] Urobilinogen, UA 0.2 E.U./dL 0.2 - 1.0 E.U./dL 12/21/2018 2:48 AM EDT [facility] Urine Urine specimen collection, clean catch / Unknown Collection / Unknown 12/21/2018 2:38 AM EDT 12/21/2018 2:45 AM EDT Jaquan Arenas DO URINE ORDERABLES Final Result [facility]
[address] [place] [id number], documented in this encounter Visit Diagnoses Diagnosis [...] 200 mg 200 mg, Oral, Once, On Emam 12/21/18 at 0305, For 1 dose, Swallow [...]
--- OUTSIDE RECORDS SUMMARY | 2024-06-04 08:00 | XMS_ITS | Encounter Summary ---
Author Organization [facility] Address [address] [place] [address] Care Team Providers Care Integrity Engineer Name Role Phone Unavailable Primary Care Provider Unavailabl e Reason for Visit * Hospital - Outpatient (Emergency) - Closed Specialty Diagnoses / Procedures Referred By Contac t Referred To Contact Radiology Diagnoses Hematuria, unspecified type Procedures US urinary bladder Thomas, Fabiola Villafuerte MD [address] [place] [phone] Phone: tel: fax: Referral ID Status Reason Start Date Expiration Date Visits Re quested Visits Authorized [id number] Closed 09/25/2018 09/25/2019 1 1 Encounter Details Date Type Department Care Team (Latest Contact Info) Description 09/25/2018 2:15 PM EDT - 09/25/2018 11:59 PM EDT Hospital Encounter [address] [phone] Discharge Disposition: Home or Self [...]
--- OUTSIDE RECORDS SUMMARY | 2024-06-04 08:00 | XMS_ITS | Encounter Summary ---
Author Organization [facility] Address [address] [place] [phone] Care Team Providers Care Headlight Adjuster Name Role Phone Unavailable Primary Care Provider Unavailabl e Reason for Visit * Reason Comments Hand Pain Encounter Details Date Type Department Care Team (Late st Contact Info) Description 09/02/2018 6:31 PM EST - 09/02/2018 7:10 PM EST Emergency [facility] EMERGENCY DEPARTMENT [address] [place] [phone] Mickey Cerda MD [address] [place] [address] Closed fracture of proximal end of left [...] sent through Care Everywhere. * Ulnar Fracture (Paraguayan) documented in this encounter Medications at Time [...] For this patient encounter, I reviewed the RAYON CONER or PA documentation, treatment plan, and medical decision making. Mickey Cerda MD 09/03/2018 7:19 AM documented in this encounter Plan of Treatment Not on file documented as of this encounter Visit Diagnoses Diagnosis Closed fracture of proximal end of left ulna, unspecified fracture morphology, initial encounter- Primary documented in this encounter
--- OUTSIDE RECORDS SUMMARY | 2024-06-04 08:00 | XMS_ITS | Encounter Summary ---
Author Organization [facility] Address [address] [place] [address] Care Team Providers Care Bag Filler Machine Operator Name Role Phone Unavailable Primary Care Provider Unavailabl e Reason for Visit * (Emergency) - Closed Specialty Diagnoses / Procedures Referred By Contac t Referred To Contact Radiology Diagnoses Rib pain Procedures XR Ribs Left With PA Chest Thomas, Fabiola Villafuerte MD [address] [place] [phone] Phone: tel: fax: Referral ID Status Reason Start Date Expiration Date Visits Re quested Visits Authorized [id number] Closed 08/28/2018 08/28/2019 1 1 Encounter Details Date Type Department Care Team (Late st Contact Info) Description 08/28/2018 1:34 PM EST - 08/28/2018 11:59 PM [facility] Hospital Encounter [facility] XRAY [address] [place] [address] Mukul Stevens MD [address] [facility] [address] [place] [address] Discharge Disposition: Home or Self Care Social [...]
--- OUTSIDE RECORDS SUMMARY | 2024-06-04 08:00 | XMS_ITS | Encounter Summary ---
Author Organization [facility] Address [address] [place] [phone] Care Team Providers Care Conservation Specialist Name Role Phone Unavailable Primary Care Provider Unavailabl e Reason for Visit * Reason Comments Arm Pain Encounter Details Date Type Department Care Team (Late st Contact Info) Description 09/04/2018 7:45 PM EST - 09/04/2018 8:23 PM EST Emergency [facility] EMERGENCY DEPARTMENT [address] [place] [phone] Krissy Bowman MD Arm fracture, left, [...] For this patient encounter, I reviewed the POWERHOUSE LABORER or PA documentation, treatment plan, and medical decision making. Krissy oBwman MD 09/04/2018 8:09 PM documented in this encounter Plan of Treatment Not on file documented as of this encounter Visit Diagnoses Diagnosis Arm fracture, left, sequela- Primary documented in this encounter
--- OUTSIDE RECORDS SUMMARY | 2024-06-04 08:00 | XMS_ITS | Encounter Summary ---
Author Organization [facility] Address [address] [place] [address] Care Team Providers Care Box Stapler Name Role Phone Unavailable Primary Care Provider Unavailabl e Reason for Visit * (Emergency) - Closed Specialty Diagnoses / Procedures Referred By Contac t Referred To Contact Radiology Diagnoses Chest pain, unspecified type Procedures XR Chest 1 View Fabiola Guzman MD [address] [place] [phone] Phone: tel: fax: Referral ID Status Reason Start Date Expiration Date Visits Re quested Visits Authorized [id number] Closed 08/28/2018 08/28/2019 1 1 Encounter Details Date Type Department Care Team (Latest Contact Info) Description 08/28/2018 1:42 PM EST - 08/28/2018 11:59 PM [facility] Hospital Encounter [facility] XRAY [address] [place] [address] Discharge Disposition: Home or Self [...]
--- OUTSIDE RECORDS SUMMARY | 2024-06-04 08:00 | XMS_ITS | Encounter Summary ---
[facility] Address [address] [place] [address] Care Team Providers Care Rotary Helper Name Role Phone Unavailable Primary Care Provider Unavailabl e Reason for Visit * Reason Comments Post-op Problem Encounter Details Date Type Department Care Team (Late st Contact Info) Description 11/02/2018 7:56 PM EDT - 11/02/2018 9:23 PM EDT Emergency [facility] EMERGENCY DEPARTMENT [address] [place] [address] Phill Gama, DO [address] [place], [place] [phone] Pain, dental (Primary Dx) Discharge Disposition: Home [...] sent through Care Everywhere. * Dental Pain [id number]-Wwyw (Spanish) documented in this encounter Medications at Time [...] For this patient encounter, I reviewed the SENIOR PHYSICIAN or PA documentation, treatment plan, and medical [...]
--- OUTSIDE RECORDS SUMMARY | 2024-06-04 08:00 | XMS_ITS | Encounter Summary ---
Author Organization [facility] Address [address] [place] [address] Care Team Providers Care Refrigerator Room Clerk Name Role Phone Unavailable Primary Care Provider Unavailabl e Reason for Visit * Reason Comments Flank Pain Encounter Details Date Type Department Care Team (Late st Contact Info) Description 08/03/2018 5:42 PM EST - 08/03/2018 5:57 PM EST Emergency [facility] EMERGENCY DEPARTMENT [address] [place] [phone] Krissy Bowman MD Emergency, Triage Protocol, [place] [address] Discharge Disposition: Left Without Being Seen Social [...]
--- OUTSIDE RECORDS SUMMARY | 2024-06-04 08:00 | XMS_ITS | Encounter Summary ---
[facility] Organization [facility] Address [address] [place] [phone] Care Team Providers Care Home Appliance Installer Name Role Phone Unavailable Primary Care Provider Unavailabl e Reason for Visit * Reason Comments Leg Pain Encounter Details Date Type Department Care Team (Late st Contact Info) Description 10/31/2018 9:24 PM EDT - 10/31/2018 10:26 PM EDT Emergency [facility] EMERGENCY DEPARTMENT [address] [place] [address] Phill Gama, DO [address] [place] [address] Acute left-sided low back pain [...] be sent through Care Everywhere. * Sciatica [id number]-[id number] (Angolan) documented in this encounter Medications at Time [...]
--- OUTSIDE RECORDS SUMMARY | 2024-06-04 08:00 | XMS_ITS | Encounter Summary ---
[facility] Address [address] [place] [phone] Care Team Providers Care Personal Injury Legal Assistant Name Role Phone Unavailable Primary Care Provider Unavailabl e Reason for Visit * Reason Comments Foot Injury Encounter Details Date Type Department Care Team (Late st Contact Info) Description 12/23/2018 4:42 PM EDT - 12/23/2018 6:50 PM EDT Emergency [facility] EMERGENCY DEPARTMENT [address] [place] [phone] Christopher Aggarwal MD Contusion of right [...] be sent through Care Everywhere. * Contusion Zwhj-qk-Wjaj (Congolese) documented in this encounter Medications at [...] Pearl Wakefield APRN 12/23/18 1840 Cosigned by Christopher Aggarwal MD at 12/23/2018 6:51 PM EDT Associated attestation - Christopher Aggarwal MD - 12/23/2018 6:51 PM EDT For this patient encounter, I reviewed the BORING MACHINE OPERATOR DOUBLE END or PA documentation, treatment plan, and medical [...] Laterality Modality Lower Extremities, Foot Right Radiogra [facility] Imaging 12/23/2018 6:26 PM EDT Impressions [...] tissues are unremarkable. IMPRESSION: unremarkable. Authenticated by Ron Adams M.D. on 12/23/2018 06:26:58 PM [facility] FRETTED INSTRUMENT REPAIRER IM DIAGNOSTIC IMAGING OR DERABLES Final Result [...]
--- OUTSIDE RECORDS SUMMARY | 2024-06-04 08:00 | XMS_ITS | Encounter Summary ---
[facility] [address] [id number] Care Team Providers Care Family And Marriage Counsellor Name Role Phone Unavailable Primary Care Provider Unavailabl e Reason for Visit * Reason Comments Arm Pain Encounter Details Date Type Department Care Team (Late st Contact Info) Description 09/09/2018 11:51 PM EST - 09/10/2018 12:50 AM EST Emergency [facility] [address] [place] [phone] Dominik Rizo MD [address] [place] [address] Arm fracture, left, sequela (Primary Dx) Discharge [...] Everywhere. * Cast or Splint Care Adult [id number] (Swazi) documented in this encounter Medications at Time [...] herself. States she then went to the [place] emergency department 2 days ago where they put a splint on her that she thought was too flimsy so she took it off. She states her arm was hurting her today so she came to the emergency department [facility] hoping to have another cast or splint [...] Procedure Name Priority Date/Time Associated Diagnosis Comments [place] APPLICATION LONG ARM SPLINT SHOULDER HAND Routine 09/10/2018 12:49 AM EST documented in this encounter Results * [place] APPLICATION LONG ARM SPLINT SHOULDER HAND (09/10/2018 [...]
--- OUTSIDE RECORDS SUMMARY | 2024-06-04 08:01 | XMS_ITS | Encounter Summary ---
Author Organization [facility] Address [address] [place] [id number] Care Team Providers Care Landscape Painter Name Role Phone Unavailable Primary Care Provider Unavailabl e Reason for Visit * Reason Comments Abdominal Pain * Auth/Cert Specialty Diagnoses / Procedures Referred By Contac t Referred To Contact Diagnoses Pyelonephritis, acute Pyelonephritis, acute Procedures - Referral ID Status Reason Start Date Expiration Date Visits Re quested Visits Authorized [id number] 1 1 Encounter Details Date Type Department Care Team (Latest Contact Info) Description 07/21/2018 4:45 PM EST - 07/22/2018 7:55 PM [facility] Hospital Encounter [facility] [address] [place] [address] Christopher Aggarwal MD Gilbert, Cody B, DO [address] [place] [address] Jarred Bauman MD [address] [place] [address] Pyelonephritis, acute (Primary Dx); Acute [...] from the original note were not included. [facility] DISCHARGE SUMMARY Name: Crystal Archer Age: 27 y.o. Sex: female : 1990 Visit Number: [id number] Admission Date: 07/21/2018 Date of Discharge: 07/22/2018 [...] Patient did have a renal biopsy at [facility] on 06/13/2018 and the pathology report was [...] and currently follows up with endocrinology at [facility]. She has insulin pump. Hospital Course: [...] Units Date/Time CT Abdomen Pelvis Without Contrast [[id number]] Collected: 07/21/182029 Updated: 07/21/182030 Narrative: FINAL REPORT [...] 2 day(s). Specialty: Family Medicine Contact information: [address] [place] [address] [place] [address] Test Results Pending at Discharge: Order Current Status Hemoglobin A1c In process PTH, Intact In process Urine Culture - Urine, Urine, Clean Catch In process Blood Culture With ADITYA - Blood, Arm, Right Preliminary result Jarred Bauman MD 07/22/18 7:47 PM Time spent: 20 min. Dictated utilizing [email or web address] dictation. documented in this encounter Medications at [...] from the original note were not included. [facility] PROGRESS NOTE Name: Crystal Archer Age: 27 y.o. Sex: female : 1990 Visit Number: [id number] Admission Date: 07/21/2018 Date Of Service: 07/22/18 [...] Units Date/Time CT Abdomen Pelvis Without Contrast [[id number]] Collected: 07/21/182029 Updated: 07/21/182030 Narrative: FINAL REPORT [...] from the original note were not included. [facility] HISTORY AND PHYSICAL Name: Crystal Archer Age: 27 y.o. Sex: female : 1990 Visit Number: [id number] Admission Date: 07/21/2018 Date Of Service: 07/21/18 [...] Patient did have a renal biopsy at [facility] on 06/13/2018 and the pathology report was [...] and currently follows up with endocrinology at [facility]. She has insulin pump. Review Of [...] Units Date/Time CT Abdomen Pelvis Without Contrast [[id number]] Collected: 07/21/182029 Updated: 07/21/182030 Narrative: FINAL REPORT [...] Bauman MD 07/21/18 8:52 PM Dictated utilizing [employer] dictation. documented in this encounter Consult Notes * Ricardo Baker MD, FASN - 07/22/2018 10:28 AM ESTAssociated Order(s): IP CONSULT TO NEPHROLOGY Images from the original note were not included. [facility] Nephrology Consultation Referring Provider: Christopher Aggarwal, * [...] kidney disease and lost visit to the video intern the renal function was described as less [...] Component Value Units Date/Time Basic Metabolic Panel [[id number]] (Abnormal) Collected: 07/22/18701 Specimen: Blood Updated: 07/22/18737 Glucose 86 mg/dL BUN 46 mg/dL Creatinine 3.30 mg/dL Sodium 139 mmol/L Potassium 4.8 mmol/L Chloride 116 mmol/L CO2 15.0 mmol/L Calcium 8.1 mg/dL eGFR Non Amer 17 mL/min/1.73 BUN/Creatinine Ratio 13.9 Anion Gap 12.8 mmol/L Narrative: GFR Normal >60 Chronic Kidney Disease <60 Kidney Failure <15 CBC Auto Differential [[id number]] (Abnormal) Collected: 07/22/18701 Specimen: Blood Updated: 07/22/18737 [...] nRBC 0.0 /100 WBC POC Glucose Once [[id number]] (Normal) Collected: 07/22/18645 Specimen: Blood Updated: 07/22/18649 Glucose 92 mg/dL Comment: Serial Number: [id number]: [id number] Procalcitonin [[id number]] (Abnormal) Collected: 07/21/182336 Specimen: Blood Updated: 07/22/18104 [...] 2 ng/mL are obtained. Basic Metabolic Panel [[id number]] (Abnormal) Collected: 07/21/182336 Specimen: Blood Updated: 07/22/18 0012 Glucose 103 mg/dL BUN 47 mg/dL Creatinine 3.50 mg/dL Sodium 137 mmol/L Potassium 5.6 mmol/L Chloride 114 mmol/L CO2 12.0 mmol/L Calcium 8.8 mg/dL eGFR Non Amer 16 mL/min/1.73 BUN/Creatinine Ratio 13.4 Anion Gap 16.6 mmol/L Narrative: GFR Normal >60 Chronic Kidney Disease <60 Kidney Failure <15 Lactic Acid, Plasma [[id number]] (Normal) Collected: 07/21/182336 Specimen: Blood Updated: 07/22/18 0007 Lactate 1.0 mmol/L Blood Culture With ADITYA - Blood, Arm, Right [[id number]] Collected: 07/21/18 2344 Specimen: Blood from Arm, Right Updated: 07/21/18 2359 POC Glucose Once [[id number]] (Normal) Collected: 07/21/18 2323 Specimen: Blood Updated: 07/21/18 2330 Glucose 100 mg/dL Comment: Serial Number: [id number]: [id number] Hemoglobin A1c [[id number]] Collected: 07/21/181749 Specimen: Blood Updated: 07/21/18 223 POC Glucose Once [[id number]] (Normal) Collected: 07/21/182145 Specimen: Blood Updated: 07/21/182149 Glucose 90 mg/dL Comment: Serial Number: [id number]: [id number] Urine Culture - Urine, Urine, Clean Catch [[id number]] Collected: 07/21/181749 Specimen: Urine, Clean Catch Updated: 07/21/182123 Urinalysis, Microscopic Only - Urine, Clean Catch [[id number]] (Abnormal) Collected: 07/21/181749 Specimen: Urine, Clean Catch Updated: 07/21/181819 RBC, UA 3-5 /HPF WBC, UA 31-50 /HPF Bacteria, UA 1+ /HPF Squamous Epithelial Cells, UA 0-2 /HPF Hyaline Casts, UA None Seen /LPF WBC Clumps, UA Small/1+ /HPF Methodology Manual Light Microscopy Comprehensive Metabolic Panel [[id number]] (Abnormal) Collected: 07/21/181749 Specimen: Blood Updated: 07/21/181819 [...] Indicated (No Culture) - Urine, Clean Catch [[id number]] (Abnormal) Collected: 07/21/181749 Specimen: Urine, Clean Catch Updated: 07/21/181809 Color, UA Straw Appearance, UA Slightly Cloudy pH, UA 5.5 Specific [place], UA 1.025 Glucose, UA Negative Ketones, UA Negative Bilirubin, UA Negative Blood, UA Trace Protein, UA >=300 mg/dL (3+) Leuk Esterase, UA Negative Nitrite, UA Negative Urobilinogen, UA 0.2 E.U./dL , Urine - Urine, Clean Catch [[id number]] (Normal) Collected: 07/21/181749 Specimen: Urine, Clean Catch Updated: 07/21/181805 HCG, Urine QL Negative CBC & Differential [[id number]] Collected: 07/21/181749 Specimen: Blood Updated: 07/21/181804 Narrative: The following orders were created for panel order CBC & Differential. Procedure Abnormality Status --------- ------ CBC Auto Differential[[id number]] Abnormal Final result Please view results for these tests on the individual orders. CBC Auto Differential [[id number]] (Abnormal) Collected: 07/21/181749 Specimen: Blood Updated: 07/21/181804 [...] Units Date/Time CT Abdomen Pelvis Without Contrast [[id number]] Collected: 07/21/182029 Updated: 07/21/182030 Narrative: FINAL REPORT [...] (07/22/18 1427) Assessment/Plan 1. Acute renal failure ([facility]): She denies any use of nonsteroidals used [...] she is leaving, pt removed telemetry herself. supervisor mold yard Rabia informed. IV removed cathlon intact. Pt [...] 16 however recently had renal biopsy at [facility] 05/2018 showing Stage III-IV kidney failure and [...] Course User Index [MP] Christopher Aggarwal MD [place] Final diagnoses: Pyelonephritis, acute Acute renal failure superimposed on chronic kidney disease, unspecified CKD stage, unspecified acute renal failure type ([facility]) Rashard Moody PA-C 07/21/182045 Rashard Moody PA-C 07/22/18 0016 Rashard Moody PA-C 08/05/18 003 Cosigned by Christopher Aggarwal MD at 08/07/2018 6:59 AM EST Associated attestation - Christopher Aggarwal MD - 08/07/2018 6:59 AM EST For this patient encounter, I reviewed the DIE STAMPING PRESS OPERATOR or PA documentation, treatment plan, and [...] - 130 mg/dL 07/22/2018 4:46 PM EST [facility] Comment:Serial Number: [id number]: [id number] Blood 07/22/2018 4:38 PM EST 07/22/2018 4:46 PM EST us Jarred Bauman MD POINT OF CARE TEST ORDERABLES Fi nal Result [facility]
[address] [place] [id number], * (ABNORMAL) POC Glucose Once (07/22/2018 12:08 PM EST) Glucose 233(H) 70 - 130 mg/dL 07/22/2018 12:20 PM EST [facility] Comment:Serial Number: [id number] Blood 07/22/2018 12:0 8 PM EST 07/22/2018 12:20 PM EST us Jarred Bauman MD POINT OF CARE TEST ORDERABLES Fi nal Result Performing Organization Address City/[facility]/ZIP Co de Phone Number [facility]
[address] [place] [address], [place] [phone] * (ABNORMAL) PTH, Intact (07/22/2018 7:17 AM EST) Pathologist [facility] PTH, Intact 123(H) 15 - 65 pg/mL 07/24/2018 2:13 PM EST [facility] Blood Venipuncture / Unknown 07/22/2018 7:17 AM EST 07/22/2018 3:23 PM EST Narrative [facility] - 07/24/2018 2:13 PM EST Performed at: ?? - [address], [place], [place] ??[id number] Behavioral Instructor: Jacob Whaley PhD, Phone: ??[phone] Ricardo Baker MD, [facility] BLOOD ORDERABLES Amy l Result Performing Organization Address City/[facility] Co de Phone Number [facility] [address] [place] [address], [place] [phone] * (ABNORMAL) CBC Auto Differential (07/22/2018 7:02 AM EST) [facility] WBC 9.72 4.80 - 10.80 10*3/mm3 07/22/2018 7:38 AM [facility] RBC 3.19(L) 4.20 - 5.40 10*6/mm3 07/22/2018 7:38 AM [facility] Hemoglobin 9.2(L) 12.0 - 16.0 g/dL 07/22/2018 7:38 AM [facility] Hematocrit 29.7(L) 37.0 - 47.0 % 07/22/2018 7:38 AM [facility] MCV 93.1 81.0 - 99.0 fL 07/22/2018 7:38 AM [facility] MCH 28.8 27.0 - 31.0 pg 07/22/2018 7:38 AM [facility] MCHC 31.0 30.0 - 37.0 g/dL 07/22/2018 7:38 AM [facility] RDW 12.7 11.5 - 14.5 % 07/22/2018 7:38 AM [facility] RDW-SD 43.6 37.0 - 54.0 fl 07/22/2018 7:38 AM [facility] MPV 13.0(H) 6.0 - 12.0 fL 07/22/2018 7:38 AM [facility] Platelets 206 130 - 400 10*3/mm3 07/22/2018 7:38 AM [facility] Neutrophil % 58.7 37.0 - 80.0 % 07/22/2018 7:38 AM [facility] Lymphocyte % 33.7 10.0 - 50.0 % 07/22/2018 7:38 AM [facility] Monocyte % 5.5 0.0 - 12.0 % 07/22/2018 7:38 AM [facility] Eosinophil % 1.6 0.0 - 7.0 % 07/22/2018 7:38 AM [facility] Basophil % 0.2 0.0 - 2.5 % 07/22/2018 7:38 AM [facility] Immature Grans % 0.3 0.0 - 0.6 % 07/22/2018 7:38 AM [facility] Neutrophils, Absolute 5.70 2.00 - 6.90 10*3/mm3 07/22/2018 7:38 AM [facility] Lymphocytes, Absolute 3.28 0.60 - 3.40 10*3/mm3 07/22/2018 7:38 AM [facility] Monocytes, Absolute 0.53 0.00 - 0.90 10*3/mm3 07/22/2018 7:38 AM [facility] Eosinophils, Absolute 0.16 0.00 - 0.70 10*3/mm3 07/22/2018 7:38 AM [facility] Basophils, Absolute 0.02 0.00 - 0.20 10*3/mm3 07/22/2018 7:38 AM [facility] Immature Grans, Absolute 0.03 0.00 - 0.06 10*3/mm3 07/22/2018 7:38 AM [facility] nRBC 0.0 0.0 - 0.0 /100 WBC 07/22/2018 7:38 AM [facility] Blood Venipuncture / Unknown 07/22/2018 7:02 AM EST 07/22/2018 7:24 AM EST Jarred Bauman MD LAB BLOOD ORDERABLES Final Resul t [facility]
[address] [place] [id number], * (ABNORMAL) Basic Metabolic Panel (07/22/2018 7:02 AM EST) Glucose 86 74 - 98 mg/dL 07/22/2018 7:38 AM [facility] BUN 46(H) 7 - 20 mg/dL 07/22/2018 7:38 AM [facility] Creatinine 3.30(H) 0.60 - 1.30 mg/dL 07/22/2018 7:38 AM [facility] Sodium 139 137 - 145 mmol/L 07/22/2018 7:38 AM [facility] Potassium 4.8 3.5 - 5.1 mmol/L 07/22/2018 7:38 AM [facility] Chloride 116(H) 98 - 107 mmol/L 07/22/2018 7:38 AM [facility] CO2 15.0(L) 26.0 - 30.0 mmol/L 07/22/2018 7:38 AM [facility] Calcium 8.1(L) 8.4 - 10.2 mg/dL 07/22/2018 7:38 AM [facility] eGFR Non Amer 17(L) >60 mL/min/1.7 3 07/22/2018 7:38 AM [facility] BUN/Creatinine Ratio 13.9 7.1 - 23.5 07/22/2018 7:38 AM EST [facility] Anion Gap 12.8 10.0 - 20.0 mmol/L 07/22/2018 7:38 AM EST [facility] Blood Venipuncture / Unknown 07/22/2018 7:02 AM EST 07/22/2018 7:24 AM EST Narrative [facility] - 07/22/2018 7:38 AM EST GFR Normal >60 Chronic Kidney Disease <60 Kidney Failure <15 Jarred Bauman MD LAB BLOOD ORDERABLES Final Resul t Performing Organization Address City/[facility]/ZIP Co de Phone Number [facility]
[address] [place] [address], * POC Glucose Once (07/22/2018 6:46 AM EST) Glucose 92 70 - 130 mg/dL 07/22/2018 6:50 AM EST [facility] Comment:Serial Number: [id number]: [id number] Blood 07/22/2018 6:46 AM EST 07/22/2018 6:50 AM EST Phill Gama DO POINT OF CARE TEST ORDERABLES Final Result Performing Organization Address [facility]/ZIP Co de Phone Number [facility]
[address] [place] [address], * Blood Culture With ADITYA - Blood, Arm, Right (07/21/2018 11:44 PM EST) Blood Culture No growth at 5 days KIRA 07/27/2018 12:02 AM EST [facility] Blood Right upper arm structure / Unknown Venipuncture / Unknown 07/21/2018 11:44 PM EST 07/21/2018 11:59 PM EST Rashard Moody PA-C MICROBIOLOGY - GEN ERAL ORDERABLES Final Result [facility]
[address] [place] [address], * (ABNORMAL) Procalcitonin (07/21/2018 11:37 PM EST) Procalcitonin 0.59(H) <=0.25 ng/mL 07/22/2018 1:05 AM EST [facility] Blood Venipuncture / Unknown 07/21/2018 11:37 PM EST 07/21/2018 11:51 PM EST Narrative [facility] - 07/22/2018 1:05 AM EST As [...] PA-C LAB BLOOD ORDERABL ES Final Result [facility]
[address] [place] [address], * Lactic Acid, Plasma (07/21/2018 11:37 PM EST) Lactate 1.0 0.5 - 2.0 mmol/L 07/22/2018 12:07 AM [facility] Blood Venipuncture / Unknown 07/21/2018 11:37 PM EST 07/21/2018 11:51 PM EST Rashard Montes De Ocacariello PA-C LAB BLOOD ORDERABL ES Final Result Performing Organization Address City/[facility]/ZIP Co de Phone Number [facility]
[address] [place] [phone], * (ABNORMAL) Basic Metabolic Panel (07/21/2018 11:37 PM EST) Glucose 103(H) 74 - 98 mg/dL 07/22/2018 12:12 AM [facility] BUN 47(H) 7 - 20 mg/dL 07/22/2018 12:12 AM [facility] Creatinine 3.50(H) 0.60 - 1.30 mg/dL 07/22/2018 12:12 AM [facility] Sodium 137 137 - 145 mmol/L 07/22/2018 12:12 AM [facility] Potassium 5.6(HH) 3.5 - 5.1 mmol/L 07/22/2018 12:12 AM [facility] Chloride 114(H) 98 - 107 mmol/L 07/22/2018 12:12 AM [facility] CO2 12.0(L) 26.0 - 30.0 mmol/L 07/22/2018 12:12 AM [facility] Calcium 8.8 8.4 - 10.2 mg/dL 07/22/2018 12:12 AM [facility] eGFR Non Amer 16(L) >60 mL/min/1.7 3 07/22/2018 12:12 AM EST [facility] BUN/Creatinine Ratio 13.4 7.1 - 23.5 07/22/2018 12:12 AM EST [facility] Anion Gap 16.6 10.0 - 20.0 mmol/L 07/22/2018 12:12 AM EST [facility] Blood Venipuncture / Unknown 07/21/2018 11:37 PM EST 07/21/2018 11:51 PM EST Narrative [facility] - 07/22/2018 12:12 AM EST GFR Normal >60 Chronic Kidney Disease <60 Kidney Failure <15 Jarred Bauman MD LAB BLOOD ORDERABLES Final Resul t Performing Organization Address City/[facility]/ZIP Co de Phone Number [facility]
[address] [place] [address], * POC Glucose Once (07/21/2018 11:23 PM EST) Glucose 100 70 - 130 mg/dL 07/21/2018 11:30 PM EST [facility] Comment:Serial Number: [id number] Blood 07/21/2018 11:2 3 PM EST 07/21/2018 11:30 PM EST Phill Gama DO POINT OF CARE TEST ORDERABLES Final Result [facility]
[address] [place] [address], * POC Glucose Once (07/21/2018 9:46 PM EST) Glucose 90 70 - 130 mg/dL 07/21/2018 9:50 PM EST [facility] Comment:Serial Number: [id number]: [id number] Blood 07/21/2018 9:46 PM EST 07/21/2018 9:50 PM EST us Phillabi Gama DO POINT OF CARE TEST ORDERABLES Final Result [facility]
[address] [place] [address], [place] [phone] * CT Abdomen Pelvis Without Contrast (07/21/2018 [...] Hemoglobin A1c (07/21/2018 5:50 PM EST) Pathologist [facility] Hemoglobin A1C 7.8(H) 3 - 6 % 07/24/2018 1:56 AM EST [facility] Blood Venipuncture / Unknown 07/21/2018 5:50 PM EST 07/21/2018 5:57 PM EST Narrative [facility] - 07/24/2018 1:56 AM EST Expected HgbA1C results: ? 3% to 6% HgbA1C HgbA1C ? Estimated Average Glucose 5% ?97 mg/dl 6% ? 126 mg/dl 7% ? 154 mg/dl 8% ? 183 mg/dl 9% ? 212 mg/dl >10% ? >240 mg/dl Jarred Bauman MD LAB BLOOD ORDERABLES Final Resul t [facility]
[address] [place] [id number], * (ABNORMAL) Urine Culture - Urine, Urine, Clean Catch (07/21/2018 5:50 PM EST) Pathologist [facility] Urine Culture >100,000 CFU/mL Escherichia coli(A) KIRA 07/24/2018 7:48 AM EST [facility] Urine Urine specimen collection, clean catch / [...] MICROBIOLOGY - GENERAL ORDERABLE S Final Result [facility]
[address] [place] [id number], * (ABNORMAL) Urinalysis, Microscopic Only - Urine, Clean Catch (07/21/2018 5:50 PM EST) RBC, UA 3-5(A) None Seen /HPF 07/21/2018 6:20 PM EST [facility] WBC, UA 31-50(A) None Seen /HPF 07/21/2018 6:20 PM [facility] Bacteria, UA 1+(A) None Seen /HPF 07/21/2018 6:20 PM [facility] Squamous Epithelial Cells, UA 0-2 None Seen, 0-2 /HPF 07/21/2018 6:20 PM EST [facility] Hyaline Casts, UA None Seen None Seen /LPF 07/21/2018 6:20 PM [facility] WBC Clumps, UA Small/1+ None Seen /HPF 07/21/2018 6:20 PM [facility] Methodology Manual Light Microscopy 07/21/2018 6:20 PM [facility] Urine Urine specimen collection, clean catch / Unknown Collection / Unknown 07/21/2018 5:50 PM EST 07/21/2018 5:57 PM EST Rashard Moody PA-C URINE ORDERABLES F inal Result [facility]
[address] [place] [id number], * (ABNORMAL) CBC Auto Differential (07/21/2018 5:50 PM EST) WBC 16.02(H) 4.80 - 10.80 10*3/mm3 07/21/2018 6:05 PM [facility] RBC 3.94(L) 4.20 - 5.40 10*6/mm3 07/21/2018 6:05 PM [facility] Hemoglobin 11.5(L) 12.0 - 16.0 g/dL 07/21/2018 6:05 PM [facility] Hematocrit 35.6(L) 37.0 - 47.0 % 07/21/2018 6:05 PM [facility] MCV 90.4 81.0 - 99.0 fL 07/21/2018 6:05 PM [facility] MCH 29.2 27.0 - 31.0 pg 07/21/2018 6:05 PM [facility] MCHC 32.3 30.0 - 37.0 g/dL 07/21/2018 6:05 PM [facility] RDW 12.5 11.5 - 14.5 % 07/21/2018 6:05 PM [facility] RDW-SD 41.1 37.0 - 54.0 fl 07/21/2018 6:05 PM [facility] MPV 13.2(H) 6.0 - 12.0 fL 07/21/2018 6:05 PM [facility] Platelets 243 130 - 400 10*3/mm3 07/21/2018 6:05 PM [facility] Neutrophil % 82.0(H) 37.0 - 80.0 % 07/21/2018 6:05 PM [facility] Lymphocyte % 11.2 10.0 - 50.0 % 07/21/2018 6:05 PM [facility] Monocyte % 4.7 0.0 - 12.0 % 07/21/2018 6:05 PM [facility] Eosinophil % 1.5 0.0 - 7.0 % 07/21/2018 6:05 PM [facility] Basophil % 0.2 0.0 - 2.5 % 07/21/2018 6:05 PM [facility] Immature Grans % 0.4 0.0 - 0.6 % 07/21/2018 6:05 PM [facility] Neutrophils, Absolute 13.12(H) 2.00 - 6.90 10*3/mm3 07/21/2018 6:05 PM [facility] Lymphocytes, Absolute 1.79 0.60 - 3.40 10*3/mm3 07/21/2018 6:05 PM [facility] Monocytes, Absolute 0.76 0.00 - 0.90 10*3/mm3 07/21/2018 6:05 PM [facility] Eosinophils, Absolute 0.24 0.00 - 0.70 10*3/mm3 07/21/2018 6:05 PM [facility] Basophils, Absolute 0.04 0.00 - 0.20 10*3/mm3 07/21/2018 6:05 PM [facility] Immature Grans, Absolute 0.07(H) 0.00 - 0.06 10*3/mm3 07/21/2018 6:05 PM [facility] nRBC 0.0 0.0 - 0.0 /100 WBC 07/21/2018 6:05 PM [facility] Blood Venipuncture / Unknown 07/21/2018 5:50 PM EST 07/21/2018 5:57 PM EST [facility] Gian[facility] Moody PA-C LAB BLOOD ORDERABL ES Final Result Performing Organization Address City/[facility]/ZIP Co de Phone Number [facility]
[address] [place] [address], [place] [phone] * , Urine - Urine, Clean Catch (07/21/2018 5:50 PM EST) HCG, Urine QL Negative Negative 07/21/2018 6:06 PM [facility] Urine Urine specimen collection, clean catch / Unknown Collection / Unknown 07/21/2018 5:50 PM EST 07/21/2018 5:57 PM EST [facility] PA-C URINE ORDERABLES F inal Result Performing Organization Address City/[facility]/ZIP Co de Phone Number [facility]
[address] [place] [address], [place] [phone] * (ABNORMAL) Urinalysis With Microscopic If Indicated (No Culture) - Urine, Clean Catch (07/21/2018 5:50 PM EST) Color, UA Straw Yellow, Straw 07/21/2018 6:10 PM [facility] Appearance, UA Slightly Cloudy(A) Clear 07/21/2018 6:10 PM [facility] pH, UA 5.5 5.0 - 8.0 07/21/2018 6:10 PM [facility] Specific [place], UA 1.025 1.005 - 1.030 07/21/2018 6:10 PM EST [facility] Glucose, UA Negative Negative 07/21/2018 6:10 PM EST [facility] Ketones, UA Negative Negative 07/21/2018 6:10 PM EST [facility] Bilirubin, UA Negative Negative 07/21/2018 6:10 PM EST [facility] Blood, UA Trace(A) Negative 07/21/2018 6:10 PM EST [facility] Protein, UA >=300 mg/dL (3+)(A) Negative 07/21/2018 6:10 PM EST [facility] Leuk Esterase, UA Negative Negative 07/21/2018 6:10 PM EST [facility] Nitrite, UA Negative Negative 07/21/2018 6:10 PM [facility] Urobilinogen, UA 0.2 E.U./dL 0.2 - 1.0 E.U./dL 07/21/2018 6:10 PM EST [facility] Urine Urine specimen collection, clean catch / Unknown Collection / Unknown 07/21/2018 5:50 PM EST 07/21/2018 5:57 PM EST Rashard Moody PA-C URINE ORDERABLES F inal Result [facility]
[address] [place] [address], * (ABNORMAL) Comprehensive Metabolic Panel (07/21/2018 5:50 PM EST) Glucose 105(H) 74 - 98 mg/dL 07/21/2018 6:20 PM EST [facility] BUN 52(H) 7 - 20 mg/dL 07/21/2018 6:20 PM [facility] Creatinine 3.40(H) 0.60 - 1.30 mg/dL 07/21/2018 6:20 PM EST [facility] Sodium 139 137 - 145 mmol/L 07/21/2018 6:20 PM EST [facility] Potassium 6.2(HH) 3.5 - 5.1 mmol/L 07/21/2018 6:20 PM [facility] Chloride 113(H) 98 - 107 mmol/L 07/21/2018 6:20 PM [facility] CO2 16.0(L) 26.0 - 30.0 mmol/L 07/21/2018 6:20 PM [facility] Calcium 9.5 8.4 - 10.2 mg/dL 07/21/2018 6:20 PM [facility] Total Protein 7.8 6.3 - 8.2 g/dL 07/21/2018 6:20 PM [facility] Albumin 4.60 3.50 - 5.00 g/dL 07/21/2018 6:20 PM [facility] ALT (SGPT) 26 13 - 69 U/L 07/21/2018 6:20 PM [facility] AST (SGOT) 16 15 - 46 U/L 07/21/2018 6:20 PM [facility] Alkaline Phosphatase 71 38 - 126 U/L 07/21/2018 6:20 PM [facility] Total Bilirubin 0.3 0.2 - 1.3 mg/dL 07/21/2018 6:20 PM [facility] eGFR Non Amer 16(L) >60 mL/min/1.7 3 07/21/2018 6:20 PM [facility] Globulin 3.2 gm/dL 07/21/2018 6:20 PM [facility] A/G Ratio 1.4 1.0 - 2.0 g/dL 07/21/2018 6:20 PM [facility] BUN/Creatinine Ratio 15.3 7.1 - 23.5 07/21/2018 6:20 PM [facility] Anion Gap 16.2 10.0 - 20.0 mmol/L 07/21/2018 6:20 PM [facility] Blood Venipuncture / Unknown 07/21/2018 5:50 PM EST 07/21/2018 5:57 PM [facility] - 07/21/2018 6:20 PM EST GFR Normal >60 Chronic Kidney Disease <60 Kidney Failure <15 Rashard Moody PA-C LAB BLOOD ORDERABL ES Final Result [facility]
[address] [place] [address], * CT APPLICATION SHORT ARM SPLINT FOREARM-HAND STATIC (07/21/2018 [...] TELEMETRY (07/21/2018) Anatomical Region Laterality Modality Other [facility] Onbase ECG ORDERABLES Final Result documented [...] grapefruit juice. 0840 (Given - Provid er: Manuel Torres RN) calcium gluconate injection 1 g [...] 1 dose 1751 (New Bag - Provider: Erica Campbell, RN)2016 (Restarted - Provider: Silvia Mcmahan [...]
--- OUTSIDE RECORDS SUMMARY | 2024-06-04 08:01 | XMS_ITS | Encounter Summary ---
Author Organization [facility] Address [address] [place] [address] Care Team Providers Care Corner Brace Block Machine Operator Name Role Phone Unavailable Primary Care Provider Unavailabl e Reason for Visit * (Emergency) - Closed Specialty Diagnoses / Procedures Referred By Contac t Referred To Contact Radiology Diagnoses Pain in joint, multiple sites Procedures XR Knee 3 View Left Fabiola Guzman MD [address] [place] [phone] Phone: tel: fax: Referral ID Status Reason Start Date Expiration Date Visits Re quested Visits Authorized [id number] Closed 02/15/2018 02/15/2019 1 1 Encounter Details Date Type Department Care Team (Latest Contact Info) Description 02/15/2018 5:35 PM EDT - 02/15/2018 11:59 PM EDT Hospital Encounter [facility] [address] [place] [address] Fabiola Guzman MD [address] [place] [address] Discharge Disposition: Home or Self Care [...] Laterality Modality Lower Extremities, Knee Left Radiogra [facility] Imaging 02/15/2018 5:53 PM EDT Impressions 02/15/2018 [...]
--- OUTSIDE RECORDS SUMMARY | 2024-06-04 08:01 | XMS_ITS | Encounter Summary ---
[facility] Organization [facility] Address [address] [place] [address] Care Team Providers Care Finishing Range Feeder Name Role Phone Unavailable Primary Care Provider Unavailabl e Encounter Details Date Type Department Care Team (Late st Contact Info) Description 06/16/2018 Readmission Management [facility] NURSE CALL [facility] [address] [place] [phone] Gianni Hardwick RN Social History Tobacco [...] Week 1 Survey [facility] the [facility] one of [...]
--- OUTSIDE RECORDS SUMMARY | 2024-06-04 08:01 | XMS_ITS | Encounter Summary ---
[facility] Organization [facility] Address [address] [place] [id number] Care Team Providers Care Communications Lead Name Role Phone Unavailable Primary Care Provider Unavailabl e Reason for Visit * Reason Comments Cough Nasal Congestion Encounter Details Date Type Department Care Team (Late st Contact Info) Description 03/14/2018 10:11 PM EDT - 03/14/2018 10:59 PM EDT Emergency [facility] EMERGENCY DEPARTMENT [address] [place] [phone] Dominik Rizo MD [address] [place] [address] Nasal congestion (Primary Dx); Nausea and vomiting, [...] through Care Everywhere. * Oxymetazoline nasal spray (Burkinan) documented in this encounter Medications at Time [...] unspecified vomiting type Dominik Rizo MD 03/14/18 [id number] documented in this encounter Plan of Treatment [...]
--- OUTSIDE RECORDS SUMMARY | 2024-06-04 08:01 | XMS_ITS | Encounter Summary ---
Author Organization [facility] Address [address] [place] [id number] Care Team Providers Care Insurance Administrative Assistant Name Role Phone Unavailable Primary Care Provider Unavailabl e Reason for Visit * Reason Comments Chest Pain Encounter Details Date Type Department Care Team (Late st Contact Info) Description 03/24/2018 9:11 PM EDT - 03/25/2018 12:51 AM EDT Emergency [facility] EMERGENCY DEPARTMENT [address] [place] [phone] Christopher Aggarwal MD Chest pain, unspecified [...] Care Everywhere. * Upper Respiratory Infection Adult Iigo-pq-Tqlq (South Sudanese) * Nonspecific Chest Pain Xxgo-xf-Okcg ([place]ese) * Dehydration Adult Pboi-yu-Oocf ([place]ese) * Hyperglycemia ([place]ese) documented in this encounter Medications at Time [...] congestion, cough, sinus pressure. Have been using [id number] symptomatic medications without any relief. Several hours [...] continue to monitor Sarah Shaffer RN 03/24/18 [id number] documented in this encounter Plan of Treatment [...] EDT) Site OTHER 03/25/2018 12:15 AM EDT [facility] pH, Venous 7.335 7.320 - 7.420 pH Units 03/25/2018 12:15 AM EDT [facility] pCO2, Venous 34.6(L) 40.0 - 50.0 mm Hg 03/25/2018 12:15 AM EDT [facility] pO2, Venous 26.0(L) 30.0 - 50.0 mm Hg 03/25/2018 12:15 AM EDT [facility] HCO3, Venous 18.5(L) 22.0 - 28.0 mmol/L 03/25/2018 12:15 AM EDT [facility] Base Excess, Venous -6.7(L) 0.0 - 2.0 mmol/L 03/25/2018 12:15 AM EDT [facility] O2 Saturation, Venous 45.9 45.0 - 75.0 % 03/25/2018 12:15 AM EDT [facility] Barometric Pressure for Blood Gas 736 mmHg 03/25/2018 12:15 AM EDT [facility] RESPIRATORY THERAPY Modality Room Air 03/25/2018 12:15 AM EDT [facility] Ventilator Mode NA 8 12:15 AM EDT [facility] Venous Blood 03/25/2018 12:1 5 AM EDT 03/25/2018 12:15 AM EDT us Christopher Aggarwal MD LAB BLOOD ORDERABLES Fin al Result [facility]
[address] [place] [address], [place] * XR Hip With or Without [...] None Seen /HPF 03/24/2018 11:30 PM EDT [facility] WBC, UA 3-5(A) None Seen /HPF 03/24/2018 11:30 PM EDT [facility] Bacteria, UA 1+(A) None Seen /HPF 03/24/2018 11:30 PM EDT [facility] Squamous Epithelial Cells, UA 0-2 None Seen, 0-2 /HPF 03/24/2018 11:30 PM EDT [facility] Hyaline Casts, UA None Seen None Seen /LPF 03/24/2018 11:30 PM EDT [facility] Methodology Manual Light Microscopy 03/24/2018 11:30 PM EDT [facility] Urine Urine specimen collection, clean catch / Unknown Collection / Unknown 03/24/2018 11:15 PM EDT 03/24/2018 11:17 PM EDT Christopher Aggarwal MD URINE ORDERABLES Final R esult [facility]
[address] [place] [address], [place] [phone] * (ABNORMAL) Urinalysis With Microscopic If Indicated (No Culture) - Urine, Clean Catch (03/24/2018 11:15 PM EDT) Color, UA Straw Yellow, Straw 03/24/2018 11:22 PM EDT [facility] Appearance, UA Clear Clear 03/24/2018 11:22 PM EDT [facility] pH, UA 5.5 5.0 - 8.0 03/24/2018 11:22 PM EDT [facility] Specific [place], UA 1.025 1.005 - 1.030 03/24/2018 11:22 PM EDT [facility] Glucose, UA >=1000 mg/dL (3+)(A) Negative 03/24/2018 11:22 PM EDT [facility] Ketones, UA Negative Negative 03/24/2018 11:22 PM EDT [facility] Bilirubin, UA Negative Negative 03/24/2018 11:22 PM EDT [facility] Blood, UA Small (1+)(A) Negative 03/24/2018 11:22 PM EDT [facility] Protein, UA >=300 mg/dL (3+)(A) Negative 03/24/2018 11:22 PM EDT [facility] Leuk Esterase, UA Negative Negative 03/24/2018 11:22 PM EDT [facility] Nitrite, UA Negative Negative 03/24/2018 11:22 PM EDT [facility] Urobilinogen, UA 0.2 E.U./dL 0.2 - 1.0 E.U./dL 03/24/2018 11:22 PM EDT [facility] Urine Urine specimen collection, clean catch / Unknown Collection / Unknown 03/24/2018 11:15 PM EDT 03/24/2018 11:17 PM EDT Christopher Aggarwal MD URINE ORDERABLES Final R esult [facility]
[address] [place] [id number], * , Urine - Urine, Clean Catch (03/24/2018 11:15 PM EDT) HCG, Urine QL Negative Negative 03/24/2018 11:22 PM EDT [facility] Urine Urine specimen collection, clean catch / Unknown Collection / Unknown 03/24/2018 11:15 PM EDT 03/24/2018 11:17 PM EDT Christopher Aggarwal MD URINE ORDERABLES Final R esult [facility]
[address] [place] [address], [place] [phone] * (ABNORMAL) CBC Auto Differential (03/24/2018 10:22 PM EDT) WBC 10.76 4.80 - 10.80 10*3/mm3 03/24/2018 10:30 PM EDT [facility] RBC 3.96(L) 4.20 - 5.40 10*6/mm3 03/24/2018 10:30 PM EDT [facility] Hemoglobin 11.6(L) 12.0 - 16.0 g/dL 03/24/2018 10:30 PM EDT [facility] Hematocrit 33.0(L) 37.0 - 47.0 % 03/24/2018 10:30 PM EDT [facility] MCV 83.3 81.0 - 99.0 fL 03/24/2018 10:30 PM EDT [facility] MCH 29.3 27.0 - 31.0 pg 03/24/2018 10:30 PM EDT [facility] MCHC 35.2 30.0 - 37.0 g/dL 03/24/2018 10:30 PM EDT [facility] RDW 11.7 11.5 - 14.5 % 03/24/2018 10:30 PM EDT [facility] RDW-SD 35.4(L) 37.0 - 54.0 fl 03/24/2018 10:30 PM EDT [facility] MPV 12.6(H) 6.0 - 12.0 fL 03/24/2018 10:30 PM EDT [facility] Platelets 260 130 - 400 10*3/mm3 03/24/2018 10:30 PM EDT [facility] Neutrophil % 47.5 37.0 - 80.0 % 03/24/2018 10:30 PM EDT [facility] Lymphocyte % 42.8 10.0 - 50.0 % 03/24/2018 10:30 PM EDT [facility] Monocyte % 5.1 0.0 - 12.0 % 03/24/2018 10:30 PM EDT [facility] Eosinophil % 3.3 0.0 - 7.0 % 03/24/2018 10:30 PM EDT [facility] Basophil % 0.4 0.0 - 2.5 % 03/24/2018 10:30 PM EDT [facility] Immature Grans % 0.9(H) 0.0 - 0.6 % 03/24/2018 10:30 PM EDT [facility] Neutrophils, Absolute 5.11 2.00 - 6.90 10*3/mm3 03/24/2018 10:30 PM EDT [facility] Lymphocytes, Absolute 4.61(H) 0.60 - 3.40 10*3/mm3 03/24/2018 10:30 PM EDT [facility] Monocytes, Absolute 0.55 0.00 - 0.90 10*3/mm3 03/24/2018 10:30 PM EDT [facility] Eosinophils, Absolute 0.35 0.00 - 0.70 10*3/mm3 03/24/2018 10:30 PM EDT [facility] Basophils, Absolute 0.04 0.00 - 0.20 10*3/mm3 03/24/2018 10:30 PM EDT [facility] Immature Grans, Absolute 0.10(H) 0.00 - 0.06 10*3/mm3 03/24/2018 10:30 PM EDT [facility] nRBC 0.0 0.0 - 0.0 /100 WBC 03/24/2018 10:30 PM EDT [facility] Blood Venipuncture / Unknown 03/24/2018 10:22 PM EDT 03/24/2018 10:27 PM EDT Christopher Aggarwal MD LAB BLOOD ORDERABLES Fin al Result [facility]
[address] [place] [id number], * Procalcitonin (03/24/2018 10:22 PM EDT) Procalcitonin <0.05 <=0.25 ng/mL 03/24/2018 11:23 PM EDT [facility] Blood Venipuncture / Unknown 03/24/2018 10:22 PM EDT 03/24/2018 10:27 PM EDT Narrative [facility] - 03/24/2018 11:23 PM EDT As [...] ORDERABLES Fin al Result Performing Organization Address City/[facility]/ZIP Co de Phone Number [facility]
[address] [place] [address], * Lactic Acid, Plasma (03/24/2018 10:22 PM EDT) Lactate 1.8 0.5 - 2.0 mmol/L 03/24/2018 10:46 PM EDT [facility] Blood Venipuncture / Unknown 03/24/2018 10:22 PM EDT 03/24/2018 10:27 PM EDT Christopher Aggarwal MD LAB BLOOD ORDERABLES Fin al Result Performing Organization Address [facility] Co de Phone Number [facility]
[address] [place] [address], * Troponin (03/24/2018 10:22 PM EDT) Troponin I <0.012 0.000 - 0.034 ng/mL 03/24/2018 10:57 PM EDT [facility] Blood Venipuncture / Unknown 03/24/2018 10:22 PM EDT 03/24/2018 10:27 PM EDT Narrative [facility] - 03/24/2018 10:57 PM EDT Normal Patient Upper Reference Limit (URL) (99th Percentile)=0.03 ng/mL Non-AMI Illness Reference Limit=0.03-0.11 ng/mL AMI Confirmation=0.12 ng/mL and above Christopher Aggarwal MD LAB BLOOD ORDERABLES Fin al Result Performing Organization Address City/[facility]/ZIP Co de Phone Number [facility]
[address] [place] [address], * (ABNORMAL) BNP (03/24/2018 10:22 PM EDT) proBNP 249.0(HH) 0.0 - 125.0 pg/mL 03/24/2018 11:01 PM EDT [facility] Blood Venipuncture / Unknown 03/24/2018 10:22 PM EDT 03/24/2018 10:27 PM EDT Christopher Aggarwal MD LAB BLOOD ORDERABLES Fin al Result [facility]
[address] [place] [address], * Lipase (03/24/2018 10:22 PM EDT) Lipase 207 23 - 300 U/L 03/24/2018 10:57 PM EDT [facility] Blood Venipuncture / Unknown 03/24/2018 10:22 PM EDT 03/24/2018 10:27 PM EDT Christopher Aggarwal MD LAB BLOOD ORDERABLES Fin al Result [facility]
[address] [place] [address], [place] [phone] * (ABNORMAL) Comprehensive Metabolic Panel (03/24/2018 10:22 PM EDT) Glucose 422(HH) 74 - 98 mg/dL 03/24/2018 11:01 PM EDT [facility] BUN 29(H) 7 - 20 mg/dL 03/24/2018 11:01 PM EDT [facility] Creatinine 2.00(H) 0.60 - 1.30 mg/dL 03/24/2018 11:01 PM EDT [facility] Sodium 132(L) 137 - 145 mmol/L 03/24/2018 11:01 PM EDT [facility] Potassium 4.1 3.5 - 5.1 mmol/L 03/24/2018 11:01 PM EDT [facility] Chloride 103 98 - 107 mmol/L 03/24/2018 11:01 PM EDT [facility] CO2 16.0(L) 26.0 - 30.0 mmol/L 03/24/2018 11:01 PM [facility] Calcium 8.9 8.4 - 10.2 mg/dL 03/24/2018 11:01 PM [facility] Total Protein 6.6 6.3 - 8.2 g/dL 03/24/2018 11:01 PM [facility] Albumin 3.50 3.50 - 5.00 g/dL 03/24/2018 11:01 PM [facility] ALT (SGPT) 22 13 - 69 U/L 03/24/2018 11:01 PM [facility] AST (SGOT) 12(L) 15 - 46 U/L 03/24/2018 11:01 PM [facility] Alkaline Phosphatase 120 38 - 126 U/L 03/24/2018 11:01 PM [facility] Total Bilirubin 0.2 0.2 - 1.3 mg/dL 03/24/2018 11:01 PM [facility] eGFR Non Amer 30(L) >60 mL/min/1.7 3 03/24/2018 11:01 PM [facility] Globulin 3.1 gm/dL 03/24/2018 11:01 PM [facility] A/G Ratio 1.1 1.0 - 2.0 g/dL 03/24/2018 11:01 PM [facility] BUN/Creatinine Ratio 14.5 7.1 - 23.5 03/24/2018 11:01 PM [facility] Anion Gap 17.1 10.0 - 20.0 mmol/L 03/24/2018 11:01 PM [facility] Blood Venipuncture / Unknown 03/24/2018 10:22 PM EDT 03/24/2018 10:27 PM EDT [facility] - 03/24/2018 11:01 PM EDT GFR Normal >60 Chronic Kidney Disease <60 Kidney Failure <15 Christopher Aggarwal MD LAB BLOOD ORDERABLES Fin al Result [facility]
[address] [place] [address], documented in this encounter Visit Diagnoses Diagnosis [...] 7-10, CPOT 5-8 2216 (Given - Provider: Sraah Shaffer RN) lactated ringers bolus 1,000 mL [...]
--- OUTSIDE RECORDS SUMMARY | 2024-06-04 08:01 | XMS_ITS | Encounter Summary ---
Author Organization [facility] Address [address] [place] [address] Care Team Providers Care Criminal Lawyer Name Role Phone Unavailable Primary Care Provider Unavailabl e Reason for Visit * (Emergency) - Closed Specialty Diagnoses / Procedures Referred By Contac t Referred To Contact Radiology Diagnoses Pain in finger of left hand Procedures XR hand 3+ vw left Fabiola Guzman MD [address] [place] [phone] Phone: tel: fax: Referral ID Status Reason Start Date Expiration Date Visits Re quested Visits Authorized [id number] Closed 04/24/2018 04/24/2019 1 1 Encounter Details Date Type Department Care Team (Latest Contact Info) Description 04/24/2018 11:35 AM EDT - 04/24/2018 11:59 PM EDT Hospital Encounter [facility] XRAY [address] [place] [address] Fabiola Guzman MD [address] [place] [phone] Discharge Disposition: Home or Self Care [...]
--- OUTSIDE RECORDS SUMMARY | 2024-06-04 08:01 | XMS_ITS | Encounter Summary ---
Author Organization [facility] Address [address] [place] [address] Care Team Providers Care Forensic Materials Engineer Name Role Phone Unavailable Primary Care Provider Unavailabl e Reason for Visit * (Routine) - Closed Specialty Diagnoses / Procedures Referred By Contac t Referred To Contact Radiology Diagnoses Right knee pain, unspecified chronicity Procedures XR Knee 3 View Right Fabiola Guzman MD [address] [place] [phone] Phone: tel: fax: Referral ID Status Reason Start Date Expiration Date Visits Re quested Visits Authorized [id number] Closed 02/06/2018 02/06/2019 1 1 Encounter Details Date Type Department Care Team (Latest Contact Info) Description 02/06/2018 12:45 PM EDT - 02/06/2018 11:59 PM EDT Hospital Encounter [facility] XRAY [address] [place] [address] Fabiola Guzman MD [address] [place] [address] Discharge Disposition: Home or Self Care [...] by Brittny Lacey M.D.. Fabiola Guzman MD [facility] ORDER BERTIN Final Result * [...] by Brittny Lacey M.D.. Fabiola Guzman MD [facility] ORDER BERTIN Final Result documented in this encounter Visit Diagnoses Not on filedocumented in this encounter
--- OUTSIDE RECORDS SUMMARY | 2024-06-04 08:01 | XMS_ITS | Encounter Summary ---
[facility] Organization [facility] Address [address] [place] [address] Care Team Providers Care Property Site Manager Name Role Phone Unavailable Primary Care Provider Unavailabl e Encounter Details Date Type Department Care Team (Late st Contact Info) Description 06/18/2018 Readmission Management [facility] NURSE CALL C[facility] [address] [place] [phone] Oliva Sherman, RN Social History Tobacco [...] Week 1 Survey [facility]es [facility] one of [...]
--- OUTSIDE RECORDS SUMMARY | 2024-06-04 08:01 | XMS_ITS | Encounter Summary ---
[facility] Address [address] [place] [address] Care Team Providers Care Contract Lead Name Role Phone Unavailable Primary Care Provider Unavailabl e Encounter Details Date Type Department Care Team (Late st Contact Info) Description 06/15/2018 Readmission Management [facility] N[facility]SE CALL C[facility] [address] [place] [phone] Beth Mckeon RN Social History Tobacco [...] Prep Survey Responses Facility patient discharged from? [facility] Is patient eligible? Yes Discharge diagnosis Acute [...]
--- OUTSIDE RECORDS SUMMARY | 2024-06-04 08:01 | XMS_ITS | Encounter Summary ---
Author Organization [facility] Address [address] [place] [address] Care Team Providers Care Speech And Drama Teacher Name Role Phone Unavailable Primary Care Provider Unavailabl e Reason for Visit * (Emergency) - Closed Specialty Diagnoses / Procedures Referred By Contac t Referred To Contact Radiology Diagnoses Right upper limb pain Procedures XR Hand 3+ View Right Thomas, Fabiola Villafuerte MD [address] [place] [phone] Phone: tel: fax: Referral ID Status Reason Start Date Expiration Date Visits Re quested Visits Authorized [id number] Closed 02/15/2018 02/15/2019 1 1 Encounter Details Date Type Department Care Team (Latest Contact Info) Description 02/15/2018 5:39 PM EDT - 02/15/2018 11:59 PM EDT Hospital Encounter [facility] X[facility] [address] [place] [address] Discharge Disposition: Home or Self [...] Laterality Modality Upper Extremities, Hand Right Radiogra [facility] Imaging 02/15/2018 5:54 PM EDT Impressions 02/15/2018 [...]
--- OUTSIDE RECORDS SUMMARY | 2024-06-04 08:01 | XMS_ITS | Encounter Summary ---
Author Organization [facility] Address [address] [id number] Care Team Providers Care Strategic Sourcing Manager Name Role Phone Unavailable Primary Care Provider Unavailabl e Reason for Visit * Reason Comments Hyperglycemia Encounter Details Date Type Department Care Team (Late st Contact Info) Description 03/30/2018 4:35 PM EDT - 03/30/2018 8:20 PM EDT Emergency [facility] [address] [place] [phone] Dominik Rizo MD [address] [place] [address] Hyperglycemia (Primary Dx); Other specified diabetes mellitus [...] Care Everywhere. * Blood Glucose Monitoring Adult ([place]) documented in this encounter Medications at Time [...] insulin a day. Then she saw an control valve technician at [facility] who put her on 2 shots a [...] Chronic constipation ??? Depression ??? Diabetes mellitus ([facility]) ??? Excessive thirst ??? H/O mammogram [...] complication, with long-term current use of insulin ([facility]) Dominik Rizo MD 04/07/18 0702 documented [...] - 130 mg/dL 03/31/2018 4:35 AM EDT [facility] Comment:Serial Number: [id number]: [id number] Blood 03/30/2018 7:58 PM EDT 03/31/2018 4:35 AM EDT us Dominik Rizo MD POINT OF CARE TEST ORDERABLES Final Result Performing Organization Address [facility] de Phone Number [facility]
[address] [place] [address], * (ABNORMAL) POC Glucose Once (03/30/2018 6:07 PM EDT) Glucose 534(HH) 70 - 130 mg/dL 03/31/2018 4:31 AM EDT [facility] Comment:Serial Number: [id number]: [id number] Blood 03/30/2018 6:07 PM EDT 03/31/2018 4:30 AM EDT us Dominik Rizo MD POINT OF CARE TEST ORDERABLES Final Result Performing Organization Address [facility] de Phone Number [facility]
[address] [place] [address], [place] [phone] * (ABNORMAL) POC Glucose Once (03/30/2018 5:18 PM EDT) Glucose 570(HH) 70 - 130 mg/dL 03/31/2018 4:30 AM EDT [facility] Comment:Serial Number: [id number]: [id number] Blood 03/30/2018 5:18 PM EDT 03/31/2018 4:30 AM EDT us Dominik Rizo MD POINT OF CARE TEST ORDERABLES Final Result Performing Organization Address City/[facility] Co de Phone Number [facility]
[address] [place] [address], [place] [phone] * (ABNORMAL) Urinalysis, Microscopic Only - Urine, Clean Catch (03/30/2018 5:02 PM EDT) RBC, UA 3-5(A) None Seen /HPF 03/30/2018 5:43 PM EDT [facility] WBC, UA 3-5(A) None Seen /HPF 03/30/2018 5:43 PM EDT [facility] Bacteria, UA 2+(A) None Seen /HPF 03/30/2018 5:43 PM EDT [facility] Squamous Epithelial Cells, UA 7-12(A) None Seen, 0-2 /HPF 03/30/2018 5:43 PM EDT [facility] Hyaline Casts, UA None Seen None Seen /LPF 03/30/2018 5:43 PM EDT [facility] Methodology Manual Light Microscopy 03/30/2018 5:43 PM EDT [facility] Urine Urine specimen collection, clean catch / Unknown Collection / Unknown 03/30/2018 5:02 PM EDT 03/30/2018 5:11 PM EDT us Triage Protocol Emergency MD URINE ORDERABLES Fi nal Result Performing Organization Address [facility]/ZIP Co de Phone Number [facility]
[address] [place] [address], [place] [phone] * (ABNORMAL) Urinalysis With Microscopic If Indicated (No Culture) - Urine, Clean Catch (03/30/2018 5:02 PM EDT) Color, UA Straw Yellow, Straw 03/30/2018 5:40 PM EDT [facility] Appearance, UA Clear Clear 03/30/2018 5:40 PM EDT [facility] pH, UA 6.0 5.0 - 8.0 03/30/2018 5:40 PM EDT [facility] Specific [place], UA 1.020 1.005 - 1.030 03/30/2018 5:40 PM EDT [facility] Glucose, UA >=1000 mg/dL (3+)(A) Negative 03/30/2018 5:40 PM EDT [facility] Ketones, UA Negative Negative 03/30/2018 5:40 PM EDT [facility] Bilirubin, UA Negative Negative 03/30/2018 5:40 PM EDT [facility] Blood, UA Small (1+)(A) Negative 03/30/2018 5:40 PM EDT [facility] Protein, UA >=300 mg/dL (3+)(A) Negative 03/30/2018 5:40 PM EDT [facility] Leuk Esterase, UA Negative Negative 03/30/2018 5:40 PM EDT [facility] Nitrite, UA Negative Negative 03/30/2018 5:40 PM EDT [facility] Urobilinogen, UA 0.2 E.U./dL 0.2 - 1.0 E.U./dL 03/30/2018 5:40 PM EDT [facility] Urine Urine specimen collection, clean catch / Unknown Collection / Unknown 03/30/2018 5:02 PM EDT 03/30/2018 5:11 PM EDT us Triage Protocol Emergency MD URINE ORDERABLES Fi nal Result [facility]
[address] [id number], * (ABNORMAL) CBC Auto Differential (03/30/2018 4:54 PM EDT) WBC 9.73 4.80 - 10.80 10*3/mm3 03/30/2018 5:02 PM EDT [facility] RBC 4.28 4.20 - 5.40 10*6/mm3 03/30/2018 5:02 PM EDT [facility] Hemoglobin 12.4 12.0 - 16.0 g/dL 03/30/2018 5:02 PM EDT [facility] Hematocrit 36.6(L) 37.0 - 47.0 % 03/30/2018 5:02 PM EDT [facility] MCV 85.5 81.0 - 99.0 fL 03/30/2018 5:02 PM EDT [facility] MCH 29.0 27.0 - 31.0 pg 03/30/2018 5:02 PM EDT [facility] MCHC 33.9 30.0 - 37.0 g/dL 03/30/2018 5:02 PM EDT [facility] RDW 11.9 11.5 - 14.5 % 03/30/2018 5:02 PM EDT [facility] RDW-SD 37.1 37.0 - 54.0 fl 03/30[facility]2018 [facility] MPV 12.8(H) 6.0 - 12.0 fL 03/30/2018 5:02 PM EDT [facility] Platelets 230 130 - 400 10*3/mm3 03/30/2018 5:02 PM EDT [facility] Neutrophil % 57.9 37.0 - 80.0 % 03/30/2018 5:02 PM EDT [facility] Lymphocyte % 33.4 10.0 - 50.0 % 03/30/2018 5:02 PM EDT [facility] Monocyte % 4.8 0.0 - 12.0 % 03/30/2018 5:02 PM EDT [facility] Eosinophil % 3.0 0.0 - 7.0 % 03/30/2018 5:02 PM EDT [facility] Basophil % 0.5 0.0 - 2.5 % 03/30/2018 5:02 PM EDT [facility] Immature Grans % 0.4 0.0 - 0.6 % 03/30/2018 5:02 PM EDT [facility] Neutrophils, Absolute 5.63 2.00 - 6.90 10*3/mm3 03/30/2018 5:02 PM EDT [facility] Lymphocytes, Absolute 3.25 0.60 - 3.40 10*3/mm3 03/30/2018 5:02 PM EDT [facility] Monocytes, Absolute 0.47 0.00 - 0.90 10*3/mm3 03/30/2018 5:02 PM EDT [facility] Eosinophils, Absolute 0.29 0.00 - 0.70 10*3/mm3 03/30/2018 5:02 PM EDT [facility] Basophils, Absolute 0.05 0.00 - 0.20 10*3/mm3 03/30/2018 5:02 PM EDT [facility] Immature Grans, Absolute 0.04 0.00 - 0.06 10*3/mm3 03/30/2018 5:02 PM EDT [facility] nRBC 0.0 0.0 - 0.0 /100 WBC 03/30/2018 5:02 PM EDT [facility] Blood Venipuncture / Unknown 03/30/2018 4:54 PM EDT 03/30/2018 4:57 PM EDT us Triage Protocol Emergency MD LAB BLOOD ORDERABLE S Final Result [facility]
[address] [place] [address], [place] [phone] * Gold Top - SST (03/30/2018 4:54 PM EDT) Extra Tube Hold for add-ons. 03/30/2018 6:00 PM EDT [facility] Comment:Auto resulted. Blood Venipuncture / Unknown 03/30/2018 4:54 PM EDT 03/30/2018 4:57 PM EDT us Triage Protocol Emergency MD LAB BLOOD ORDER ONL Y Final Result [facility]
[address] [place] [address], [place] [phone] * Lavender Top (03/30/2018 4:54 PM EDT) Extra Tube hold for add-on 03/30/2018 6:00 PM EDT [facility] Comment:Auto resulted Blood Venipuncture / Unknown 03/30/2018 4:54 PM EDT 03/30/2018 4:57 PM EDT Triage Protocol Emergency MD LAB BLOOD ORDER ONL Y Final Result Performing Organization Address City/[facility]/ZIP Co de Phone Number [facility]
[address] [place] [address], [place] [phone] * Light Blue Top (03/30/2018 4:54 PM EDT) Extra Tube hold for add-on 03/30/2018 6:00 PM EDT [facility] Comment:Auto resulted Blood Venipuncture / Unknown 03/30/2018 4:54 PM EDT 03/30/2018 4:57 PM EDT Triage Protocol Emergency MD LAB BLOOD ORDER ONL Y Final Result Performing Organization Address City/[facility]/ZIP Co de Phone Number [facility]
[address] [place] [address], [place] [phone] * (ABNORMAL) Comprehensive Metabolic Panel (03/30/2018 4:54 PM EDT) Glucose 613(HH) 74 - 98 mg/dL 03/30/2018 5:41 PM EDT [facility] Comment:Glucose >180, Hemogl obin A1C recommended. BUN 29(H) 7 - 20 mg/dL 03/30/2018 5:41 PM EDT [facility] Creatinine 1.80(H) 0.60 - 1.30 mg/dL 03/30/2018 5:41 PM EDT [facility] Sodium 129(L) 137 - 145 mmol/L 03/30/2018 5:41 PM EDT [facility] Potassium 5.0 3.5 - 5.1 mmol/L 03/30/2018 5:41 PM EDT [facility] Chloride 96(L) 98 - 107 mmol/L 03/30/2018 5:41 PM EDT [facility] CO2 22.0(L) 26.0 - 30.0 mmol/L 03/30/2018 5:41 PM EDT [facility] Calcium 9.0 8.4 - 10.2 mg/dL 03/30/2018 5:41 PM EDT [facility] Total Protein 7.1 6.3 - 8.2 g/dL 03/30/2018 5:41 PM EDT [facility] Albumin 3.80 3.50 - 5.00 g/dL 03/30/2018 5:41 PM EDT [facility] ALT (SGPT) 23 13 - 69 U/L 03/30/2018 5:41 PM EDT [facility] AST (SGOT) 14(L) 15 - 46 U/L 03/30/2018 5:41 PM EDT [facility] Alkaline Phosphatase 142(H) 38 - 126 U/L 03/30/2018 5:41 PM EDT [facility] Total Bilirubin 0.2 0.2 - 1.3 mg/dL 03/30/2018 5:41 PM EDT [facility] eGFR Non Amer 34(L) >60 mL/min/1.7 3 03/30/2018 5:41 PM EDT [facility] Globulin 3.3 gm/dL 03/30/2018 5:41 PM EDT [facility] A/G Ratio 1.2 1.0 - 2.0 g/dL 03/30/2018 5:41 PM EDT [facility] BUN/Creatinine Ratio 16.1 7.1 - 23.5 03/30/2018 5:41 PM EDT [facility] Anion Gap 16.0 10.0 - 20.0 mmol/L 03/30/2018 5:41 PM T [facility] Blood Venipuncture / Unknown 03/30/2018 4:54 PM EDT 03/30/2018 4:57 PM EDT [facility] - 03/30/2018 5:41 PM EDT GFR Normal >60 Chronic Kidney Disease <60 Kidney Failure <15 us Triage Protocol Emergency MD LAB BLOOD ORDERABLE S Final Result [facility]
[address] [id number], documented in this encounter Visit Diagnoses Diagnosis [...]
--- OUTSIDE RECORDS SUMMARY | 2024-06-04 08:01 | XMS_ITS | Encounter Summary ---
Author Organization [facility] Address [address] [place] [address] Care Team Providers Care Buckle Strap Drum Operator Name Role Phone Unavailable Primary Care Provider Unavailabl e Encounter Details Date Type Department Care Team (Late st Contact Info) Description 04/06/2018 2:35 PM EDT Lab [facility] [address] [place] [phone] Proteinuria, unspecified type Social History [...] Antibody 4th Generation (04/06/2018 2:41 PM EDT) [facility] HIV-1/ HIV-2 Non-Reacti ve Non-Reacti ve 04/06/2018 8:19 PM EDT [facility] HIV-1 P24 Ag Screen Non-Reacti ve Non-Reacti ve 04/06/2018 8:19 PM EDT [facility] Blood Venipuncture / Unknown 04/06/2018 2:41 PM EDT 04/06/2018 3:38 PM EDT Chacha Gama DO LAB BLOOD ORDERABLES F inal Result [facility]
[address] [id number], * Hepatitis Panel, Acute (04/06/2018 2:41 PM EDT) [facility] Hep A IgM Negative Negative 04/07/2018 [...] with a HCV Nucleic Acid Amplification test ([id number]). Blood Venipuncture / Unknown 04/06/2018 2:41 PM EDT 04/06/2018 3:38 PM EDT Narrative [facility] - 04/07/2018 9:17 AM EDT Performed at: ??01 - [facility], [place], [place] ??[id number] Manager Of Transportation: Jacob Whaley PhD, Phone: ??[phone] us Chacha Gama DO LAB BLOOD ORDERABLES F inal Result [facility] [address] [place] [address], * GIANCARLO Comprehensive Panel (04/06/2018 2:41 PM EDT) Anti-DNA (DS) Ab Qn 1 0 - 9 IU/mL 04/07/2018 2:15 PM EDT [facility] Comment: ? Negative ?<5 ? Equivocal ??5 - 9 ? Positive ?>9 LOANS CONSULTANT Antibodies <0.2 0.0 - 0.9 AI 04/07/2018 [...] Sm (anti-Leo) ?SLE ?15 - 30% ?--------- LOANS CONSULTANT ?Mixed Connective Tissue ? Disease ? 95% [...] 2:15 PM EDT Performed at: ??01 - [address] ??[id number] Manager Of Transportation: Jacob Whaley PhD, Phone: ??[phone] Chacha Gama DO LAB BLOOD ORDERABLES F inal Result [facility] [address] [place] [address], * Anti-Leo Antibody (04/06/2018 2:41 PM EDT) Leo Antibodies <0.2 0.0 - 0.9 AI 04/07/2018 2:15 PM EDT [facility] Blood Venipuncture / Unknown 04/06/2018 2:41 PM EDT 04/06/2018 3:38 PM EDT Narrative [facility] - 04/07/2018 2:15 PM EDT Performed at: ??[address] ??[id number] Manager Of Transportation: Jacob Whaley PhD, Phone: ??[phone] Chacha Corrigan Natan DO LAB BLOOD ORDERABLES F inal Result Performing Organization Address [facility] Co de Phone Number [facility] [address] [place] [address], * Antinuclear Antibodies Direct (04/06/2018 2:41 PM EDT) [facility] GIANCARLO Direct Negative Negative 04/07/2018 2:15 PM EDT [facility] Blood Venipuncture / Unknown 04/06/2018 2:41 PM EDT 04/06/2018 3:38 PM EDT Narrative [facility] - 04/07/2018 2:15 PM EDT Performed at: ??[address] ??[id number] Manager Of Transportation: Jacob Whaley PhD, Phone: ??[phone] Chacha Gama DO LAB BLOOD ORDERABLES F inal Result Performing Organization Address [facility] de Phone Number [facility] [address] [place] [address], * ANCA Panel (04/06/2018 2:41 PM EDT) [facility] Myeloperoxidase Ab <9.0 0.0 - 9.0 U/mL 04/08/2018 5:08 PM EDT [facility] Antiproteinase 3 (NC-3) <3.5 0.0 - 3.5 U/mL 04/08/2018 5:08 [...] up testing of positive sera with both NC-3 and MPO-ANCA enzyme immunoassays. As many as [...] 5:08 PM EDT Performed at: ??01 - [facility] ??[id number] Manager Of Transportation: Ibrahima Kelly MD, Phone: ??[phone] Performed at: ??02 - [address] ??[id number] Manager Of Transportation: Jacob Whaley PhD, Phone: ??[phone] Chacha Gama DO LAB BLOOD ORDERABLES F inal Result [facility] [address] [place] [address], documented in this encounter Visit Diagnoses Diagnosis Proteinuria, unspecified type documented in this encounter
--- OUTSIDE RECORDS SUMMARY | 2024-06-04 08:01 | XMS_ITS | Encounter Summary ---
Author Organization [facility] Address [address] [id number] Care Team Providers Care Lead Network Architect Name Role Phone Unavailable Primary Care Provider Unavailabl e Reason for Referral * Diagnostic Imaging (Routine) - Closed Specialty Diagnoses / Procedures Referred By Contac t Referred To Contact Radiology Diagnoses Acute renal failure, unspecified acute renal failure type Procedures CT Needle Biopsy Kidney Renal Ibrahima Talamantes MD [address] [address] Phone: tel: Referral ID Status Reason Start Date Expiration Date Visits Re quested Visits Authorized [id number] Closed 05/22/2018 05/22/2019 1 1 Reason for Visit * Auth/Cert Specialty Diagnoses / Procedures Referred By Contac t Referred To Contact Diagnoses Acute renal failure, unspecified acute renal failure type Acute renal failure, unspecified acute renal failure type Procedures CT NEEDLE BIOPSY KIDNEY RENAL Referral ID Status Reason Start Date Expiration Date Visits Re quested Visits Authorized [id number] 1 1 Encounter Details Date Type Department Care Team (Latest Contact Info) Description 06/13/2018 8:21 AM EST - 06/14/2018 12:52 PM EST Hospital Encounter [address] [address] Ibrahima Talamantes MD Acute renal [...] 06/14/2018 12:25 PM EST Discharge Planning Assessment [facility] Patient Name: Crystal Archer Today's Date: 06/14/2018 Admit Date: 06/13/2018 Discharge Needs Assessment Row Name 06/14/18 8767 Living Environment Lives With child(karlo), dependent;significant other [...] Problems Present (Chronic Kidney/ESRD) none * Ayah hCawla RN - 06/14/2018 3:59 AM EST Patient [...] (Kidney Disease, Chronic/End Stage Renal Disease) 06/13/18 5912 06/14/18 035 Goal/Outcome Evaluation Problems Assessed (Chronic [...] want to and renal diet. Silvia Zee full charge bookkeeper nurse in to speakwith patient. Dr. Talamantes [...] Zee RN - 06/13/2018 5:08 PM EST manager secondary reports to room after pt began getting upset about orders. Pt upset that she has diet restrictions, Pt eats whatever she wants at home and wishes to here as well. Pt also does not wish to be on bedrest as ordered. manager secondary spoke to this evening to inform. states will not change orders and encourages pt to stay due to risk of bleeding. manager secondary spoke to pt again. Pt states understanding risk for bleeding. Pt agrees to not go all the way into bathroom but will use BSC stating she is unable to use a bedpan. manager secondary encourages pt to use bedpan to follow orders. Pt states will send visitor in room with her to get food for her. manager secondary encouraged pt to follow MD orders. Pt [...] - 130 mg/dL 06/14/2018 8:22 AM EST [facility] Blood 06/14/2018 8:20 AM EST 06/14/2018 8:22 AM EST Ibrahima Talamantes MD POINT OF CARE TEST ORD ERABLES Final Result [facility]
[address] [place] [address], * (ABNORMAL) Hemoglobin (06/14/2018 5:12 AM EST) Hemoglobin 10.4(L) 11.5 - 15.5 g/dL 06/14/2018 5:51 AM EST [facility] Blood Venipuncture / Unknown 06/14/2018 5:12 AM EST 06/14/2018 5:32 AM EST [facility] BLOOD ORDERABLES Amy l Result [facility]
[address] [place] [address], * (ABNORMAL) Basic Metabolic Panel (06/14/2018 5:12 AM EST) Glucose 178(H) 70 - 100 mg/dL 06/14/2018 6:07 AM EST [facility] BUN 38(H) 9 - 23 mg/dL 06/14/2018 6:07 AM EST [facility] Creatinine 2.69(H) 0.60 - 1.30 mg/dL 06/14/2018 6:07 AM EST [facility] Sodium 139 132 - 146 mmol/L 06/14/2018 6:07 AM EST [facility] Potassium 5.3 3.5 - 5.5 mmol/L 06/14/2018 6:07 AM EST [facility] Chloride 115(H) 99 - 109 mmol/L 06/14/2018 6:07 AM EST [facility] CO2 18.0(L) 20.0 - 31.0 mmol/L 06/14/2018 6:07 AM EST [facility] Calcium 8.3(L) 8.7 - 10.4 mg/dL 06/14/2018 6:07 AM EST [facility] eGFR Non Amer 21(L) >60 mL/min/1.7 3 06/14/2018 6:07 AM EST [facility] BUN/Creatinine Ratio 14.1 7.0 - 25.0 06/14/2018 6:07 AM EST [facility] Anion Gap 6.0 3.0 - 11.0 mmol/L 06/14/2018 6:07 AM EST [facility] Blood Venipuncture / Unknown 06/14/2018 5:12 AM EST 06/14/2018 5:32 AM EST Narrative [facility] - 06/14/2018 6:07 AM EST [...] ORDERABLES Amy l Result Performing Organization Address [facility] de Phone Number [facility]
[address] [place] [address], * (ABNORMAL) POC Glucose Once (06/13/2018 8:58 PM EST) Glucose 211(H) 70 - 130 mg/dL 06/13/2018 9:10 PM EST [facility] Blood 06/13/2018 8:58 PM EST 06/13/2018 9:10 PM EST Ibrahima Talamantes MD POINT OF CARE TEST ORD ERABLES Final Result Performing Organization Address [facility] de Phone Number [facility]
[address] [place] [address], * (ABNORMAL) Hemoglobin (06/13/2018 8:15 PM EST) Hemoglobin 9.9(L) 11.5 - 15.5 g/dL 06/13/2018 8:22 PM EST [facility] Blood Venipuncture / Unknown 06/13/2018 8:15 PM EST 06/13/2018 8:20 PM EST Adina Sands MD LAB BLOOD ORDERABLES Amy l Result Performing Organization Address [facility]/ZIP Co de Phone Number [facility]
[address] [place] [address], * (ABNORMAL) Hemoglobin (06/13/2018 5:40 PM EST) Hemoglobin 10.1(L) 11.5 - 15.5 g/dL 06/13/2018 6:06 PM EST [facility] Blood Venipuncture / Unknown 06/13/2018 5:40 PM EST 06/13/2018 6:01 PM EST Adina Sands MD LAB BLOOD ORDERABLES Amy l Result [facility]
[address] [place] [address], * ECG 12 Lead (06/13/2018 4:29 PM [...] Organization Address [facility] Co de Phone Number ECG * (ABNORMAL) POC Glucose Once (06/13/2018 3:52 PM EST) Glucose 204(H) 70 - 130 mg/dL 06/13/2018 3:54 PM EST [facility] Blood 06/13/2018 3:52 PM EST 06/13/2018 3:54 PM EST Ibrahima Talamantes MD POINT OF CARE TEST ORD ERABLES Final Result Performing Organization Address [facility] de Phone Number [facility]
[address] [place] [address], * POC Glucose Once (06/13/2018 1:49 PM EST) Glucose 84 70 - 130 mg/dL 06/13/2018 1:54 PM EST [facility] Blood 06/13/2018 1:49 PM EST 06/13/2018 1:54 PM EST Ibrahima Talamantes MD POINT OF CARE TEST ORD ERABLES Final Result Performing Organization Address [facility] de Phone Number [facility]
[address] [place] [address], * CT Needle Biopsy Kidney Renal (06/13/2018 [...] Case Report Surgical Pathology Report ? Case: [id number] ? Authorizing Provider: ??Albin, Ibrahima Lepe, ?? Collected: ? 06/13/2018 01:28 PM ? MD ? Ordering Location: ? [facility] [employer] [facility] ?? Received: ?06/13/2018 01:52 PM ? 4D ? Pathologist: ? Cb Cohn, ? Specimen: ?Kidney, Left ? 06/29/2018 12:05 PM EST [facility], Addendum Testing performed at outside laboratory. See scanned report. 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 Patchy numerous eosinophils in the early atrophic area. Testing performed at outside laboratory. See scanned report. 06/29/2018 12:05 PM EST [facility] Tissue Specimen from kidney / Unknown Collection / Unknown 06/13/2018 1:28 PM EST 06/13/2018 1:52 PM EST us Ibrahima Talamantes MD PATHOLOGY/CYTOLOGY ORD ERABLES Edited Result - Final Performing Organization Address City/[facility]/ZIP Co de Phone Number [facility]
[address] [place] [address], * (ABNORMAL) POC Glucose Once (06/13/2018 12:51 PM EST) Glucose 65(L) 70 - 130 mg/dL 06/13/2018 12:52 PM EST [facility] Blood 06/13/2018 12:5 1 PM EST 06/13/2018 12:52 PM EST Ibrahima Talamantes MD POINT OF CARE TEST ORD ERABLES Final Result Performing Organization Address City/[facility]/ZIP Co de Phone Number [facility]
[address] [place] [address], * POC Glucose Once (06/13/2018 11:57 AM EST) Glucose 81 70 - 130 mg/dL 06/13/2018 12:01 PM EST [facility] Blood 06/13/2018 11:5 7 AM EST 06/13/2018 12:01 PM EST Ibrahima Talamantes MD POINT OF CARE TEST ORD ERABLES Final Result Performing Organization Address [facility]/ZIP Co de Phone Number [facility]
[address] [place] [address], * (ABNORMAL) POC Glucose Once (06/13/2018 11:45 AM EST) Glucose 47(LL) 70 - 130 mg/dL 06/13/2018 11:53 AM EST [facility] Blood 06/13/2018 11:4 5 AM EST 06/13/2018 11:53 AM EST us Ibrahima Talamantes MD POINT OF CARE TEST ORD ERABLES Final Result Performing Organization Address [facility] Co de Phone Number [facility]
[address] [place] [address], * ABO RH Specimen Verification (06/13/2018 10:09 AM EST) ABO Type A 06/13/2018 10:30 AM EST [facility] RH type Positive 06/13/2018 10:30 AM EST [facility] Blood Venipuncture / Unknown 06/13/2018 10:09 AM EST 06/13/2018 10:13 AM EST us Ibrahima Talamantes MD BLOOD BANK TEST ORDERA BLES Final Result Performing Organization Address City/[facility] Co de Phone Number [facility]
[address] [place] [address], * (ABNORMAL) POC Glucose Once (06/13/2018 9:01 AM EST) Glucose 148(H) 70 - 130 mg/dL 06/13/2018 9:03 AM EST [facility] Blood 06/13/2018 9:01 AM EST 06/13/2018 9:03 AM EST us Ibrahima Talamantes MD POINT OF CARE TEST ORD ERABLES Final Result Performing Organization Address [facility] Co de Phone Number [facility]
[address] [place] [address], * Platelet Function Test (06/13/2018 8:57 AM EST) Pathologist [facility] Collagen/Epine phrine 121 72 - 192 Seconds 06/13/2018 9:56 AM EST [facility] Collagen/ADP 86 54 - 123 Seconds 06/13/2018 9:56 AM EST [facility] Blood Venipuncture / Unknown 06/13/2018 8:57 AM EST 06/13/2018 9:27 AM EST Narrative [facility] - 06/13/2018 9:56 AM EST PFA Interpretation Norm ADP / Norm EPI: Normal Plt Function ? Norm ADP / Abn EPI: Drug Induced Platelet Dysfunction, most commonly seen with Aspirin ? Abn ADP / Abn EPI: Abnormal Platelet Function, recommend further evaluation Ibrahima Talamantes MD LAB BLOOD ORDERABLES F inal Result Performing Organization Address [facility] de Phone Number [facility]
[address] [place] [address], * Type & Screen (06/13/2018 8:57 AM EST) [facility] ABO Type A 06/13/2018 10:23 AM EST [facility] RH type Positive 06/13/2018 10:23 AM EST [facility] Antibody Screen Negative 06/13/2018 10:23 AM [facility] T&S Expiration Date 06/16/2018 11:59:59 PM 06/13/2018 10:23 AM [facility] Blood Venipuncture / Unknown 06/13/2018 8:57 AM EST 06/13/2018 9:23 AM EST Ibrahima Talamantes MD BLOOD BANK TEST ORDERA BLES Edited Result - Final [facility]
[address] [place] [address], * (ABNORMAL) Renal Function Panel (06/13/2018 8:57 AM EST) Glucose 140(H) 70 - 100 mg/dL 06/13/2018 9:54 AM [facility] BUN 36(H) 9 - 23 mg/dL 06/13/2018 9:54 AM [facility] Creatinine 2.63(H) 0.60 - 1.30 mg/dL 06/13/2018 9:54 AM [facility] Sodium 137 132 - 146 mmol/L 06/13/2018 9:54 AM [facility] Potassium 5.7(H) 3.5 - 5.5 mmol/L 06/13/2018 9:54 AM [facility] Chloride 112(H) 99 - 109 mmol/L 06/13/2018 9:54 AM [facility] CO2 20.0 20.0 - 31.0 mmol/L 06/13/2018 9:54 AM [facility] Calcium 8.5(L) 8.7 - 10.4 mg/dL 06/13/2018 9:54 AM [facility] Albumin 4.15 3.20 - 4.80 g/dL 06/13/2018 9:54 AM [facility] Phosphorus 5.0 2.4 - 5.1 mg/dL 06/13/2018 9:54 AM [facility] Anion Gap 5.0 3.0 - 11.0 mmol/L 06/13/2018 9:54 AM EST [facility] BUN/Creatinine Ratio 13.7 7.0 - 25.0 06/13/2018 9:54 AM EST [facility] eGFR Non Amer 22(L) >60 mL/min/1.7 3 06/13/2018 9:54 AM EST [facility] Blood Venipuncture / Unknown 06/13/2018 8:57 AM EST 06/13/2018 9:21 AM EST Narrative [facility] - 06/13/2018 9:54 AM EST [...] MD LAB BLOOD ORDERABLES F inal Result [facility]
[address] [place] [address], * Protime-INR (06/13/2018 8:57 AM EST) Protime 10.5 9.6 - 11.5 Seconds 06/13/2018 9:47 AM EST [facility] INR 1.00 0.91 - 1.09 06/13/2018 9:47 AM EST [facility] Blood Venipuncture / Unknown 06/13/2018 8:57 AM EST 06/13/2018 9:27 AM EST Ibrahima Talamantes MD LAB BLOOD ORDERABLES F inal Result Performing Organization Address [facility] Co de Phone Number [facility]
[address] [place] [address], * aPTT (06/13/2018 8:57 AM EST) Pathologist [facility] PTT 28.7 24.0 - 31.0 seconds 06/13/2018 9:47 AM EST [facility] Blood Venipuncture / Unknown 06/13/2018 8:57 AM EST 06/13/2018 9:27 AM EST [facility] - 06/13/2018 9:47 AM EST PTT = The equivalent PTT values for the therapeutic range of heparin levels at 0.3 to 0.5 U/ml are 55 to 70 seconds. Ibrahima Talamantes MD LAB BLOOD ORDERABLES F inal Result Performing Organization Address [facility] de Phone Number [facility]
[address] [place] [address], * (ABNORMAL) CBC (No Diff) (06/13/2018 8:57 AM EST) Pathologist [facility] WBC 10.16 3.50 - 10.80 10*3/mm3 06/13/2018 9:34 AM EST [facility] RBC 3.75(L) 3.89 - 5.14 10*6/mm3 06/13/2018 9:34 AM EST [facility] Hemoglobin 10.7(L) 11.5 - 15.5 g/dL 06/13/2018 9:34 AM EST [facility] Hematocrit 34.5 34.5 - 44.0 % 06/13/2018 9:34 AM [facility] MCV 92.0 80.0 - 99.0 fL 06/13/2018 9:34 AM EST [facility] MCH 28.5 27.0 - 31.0 pg 06/13/2018 9:34 AM EST [facility] MCHC 31.0(L) 32.0 - 36.0 g/dL 06/13/2018 9:34 AM EST [facility] RDW 12.9 11.3 - 14.5 % 06/13/2018 9:34 AM EST [facility] RDW-SD 43.4 37.0 - 54.0 fl 06/13/2018 9:34 AM EST [facility] MPV 13.0(H) 6.0 - 12.0 fL 06/13/2018 9:34 AM EST [facility] Platelets 268 150 - 450 10*3/mm3 06/13/2018 9:34 AM EST [facility] Blood Venipuncture / Unknown 06/13/2018 8:57 AM EST 06/13/2018 9:27 AM EST Ibrahima Talamantes MD LAB BLOOD ORDERABLES F inal Result [facility]
[address] [place] [address], documented in this encounter Visit Diagnoses Diagnosis [...] at 1445, For 1 dose, Warning: The emergency communications operator recommends against administering with sorbitol due to [...] pancreatitis 1750 (Not Given - Provider: Leah Alrdich RN - Reason: Medication not available) 0856 [...] at 1445, For 1 dose, Warning: The emergency communications operator recommends against administering with sorbitol due to [...]
--- OUTSIDE RECORDS SUMMARY | 2024-06-04 08:01 | XMS_ITS | Encounter Summary ---
[facility] Address [address] [place] [id number] Care Team Providers Care Commercial Artist Name Role Phone Unavailable Primary Care Provider Unavailabl e Reason for Visit * Reason Comments Tingling Encounter Details Date Type Department Care Team (Late st Contact Info) Description 05/08/2018 6:16 PM EDT - 05/08/2018 6:32 PM EDT Emergency [facility] [address] [place] [address] Mickey Cerda MD [address] [place] [address] Chronic painful diabetic neuropathy (Primary [...] sent through Care Everywhere. * Neuropathic Pain ([place]) documented in this encounter Medications at Time [...] diagnoses: Chronic painful diabetic neuropathy (CMS/HCC) Mickey Creda MD 05/08/18 1829 documented in this encounter Plan of Treatment Not on file documented as of this encounter Visit Diagnoses Diagnosis Chronic painful diabetic neuropathy- Primary documented in this encounter
--- OUTSIDE RECORDS SUMMARY | 2024-06-04 08:01 | XMS_ITS | Encounter Summary ---
Author Organization [facility] Address [address] [place] [id number] Care Team Providers Care Voice Over Artist Name Role Phone Unavailable Primary Care [...] Expiration Date Visits Re quested Visits Authorized [id number] Closed 04/07/2018 04/07/2019 1 1 Reason for Visit * Hospital - Outpatient (Routine) - Closed Specialty Diagnoses / Procedures Referred By Contel burt Referred To Contact Radiology Diagnoses Type 2 diabetes mellitus with ESRD (end-stage renal disease) Procedures US Renal Bilateral Chacha Gama DO Phone: tel: fax: Referral ID Status Reason Start Date Expiration Date Visits Re quested Visits Authorized [id number] Closed 04/07/2018 04/07/2019 1 1 Encounter Details Date Type Department Care Team (Late st Contact Info) Description 04/13/2018 12:00 PM EDT - 04/13/2018 11:59 PM EDT Hospital Encounter [facility] [address] [place] [id number] Chacha Gama DO [address] [place] [address] Type 2 diabetes mellitus with ESRD (end-stage [...]
--- OUTSIDE RECORDS SUMMARY | 2024-06-04 08:01 | XMS_ITS | Encounter Summary ---
[facility] Address [address] [place] [address] Care Team Providers Care Desktop Publishing Associate Name Role Phone Unavailable Primary Care Provider Unavailabl e Encounter Details Date Type Department Care Team (Late st Contact Info) Description 06/14/2018 Telephone [facility] 4D [address] [place] [address] Ibrahima Talamantes MD Social History [...]
--- OUTSIDE RECORDS SUMMARY | 2024-06-04 08:02 | XMS_ITS | Encounter Summary ---
Author Organization [facility] Address [address] [place] [address] Care Team Providers Care Station [facility]ateman Name Role Phone Lauren Slade ANJU Primary Care Provider [phone] Reason for Visit * Reason Comments Hyperglycemia Encounter Details Date Type Department Care Team (Late st Contact Info) Description 01/14/2018 7:58 PM EDT - 01/14/2018 10:20 PM EDT Emergency [facility] [address] [place] [phone] Dominik Rizo MD [address] [place] [address] Type 2 diabetes mellitus with hyperglycemia, with [...] Care Everywhere. * Blood Glucose Monitoring Adult ([place]) documented in this encounter Medications at Time [...] this encounter ED Notes * Stormy Vyas, [employer] - 01/14/2018 10:20 PM EDT Subjective History [...] hyperglycemia, with long-term current use of insulin ([facility]) Essential hypertension Stormy Vyas APRN 01/16/18 2221 Cosigned by Dominik Rizo MD at 01/17/2018 12:33 AM EDT Associated attestation - Dominik Rizo MD - 01/17/2018 12:33 AM EDT For this patient encounter, I reviewed the QUALITATIVE FIELD PROJECT MANAGER or PA documentation, treatment plan, and [...] - 130 mg/dL 01/14/2018 11:25 PM EDT [facility] Comment:Serial Number: [id number] Blood 01/14/2018 9:31 PM EDT 01/14/2018 11:25 PM EDT Dominik Rizo MD POINT OF CARE TEST ORDERABLES Final Result [facility]
[address] [id number], * (ABNORMAL) Blood Gas, Venous (01/14/2018 9:10 PM EDT) Site Arterial Line 01/14/2018 9:07 PM EDT [facility] THERAPY pH, Venous 7.354 7.320 - 7.420 pH Units 01/14/2018 9:07 PM EDT [facility]ER[facility] pCO2, Venous 40.8 40.0 - 50.0 mm Hg 01/14/2018 9:07 PM EDT [facility]ER[facility] pO2, Venous 28.9(L) 30.0 - 50.0 mm Hg 01/14/2018 9:07 PM EDT [facility]ER[facility] HCO3, Venous 22.7 22.0 - 28.0 mmol/L 01/14/2018 9:07 PM EDT [facility] THERAPY Base Excess, Venous -2.8(L) 0.0 - 2.0 mmol/L 01/14/2018 9:07 PM EDT [facility]ERAP[facility] O2 Saturation, Venous 53.5 45.0 - 75.0 % 01/14/2018 9:07 PM EDT [facility] Hemoglobin, Blood Gas 11.7(L) 12 - 18 g/dL 01/14/2018 9:07 PM EDT [facility] THERAP[facility] Barometric Pressure for Blood Gas 735 mmHg 01/14/2018 9:07 PM EDT [facility] Modality Room Air 01/14/2018 9:07 PM EDT [facility]ER[facility] FIO2 21 % 01/14/2018 9:07 PM EDT [facility] Venous Blood 01/14/2018 9:10 PM EDT 01/14/2018 9:07 PM EDT Dominik Rizo MD LAB BLOOD ORDERABLES Final Res ult [facility] THERAP[facility]
[address] [place] [address], * (ABNORMAL) CBC Auto Differential (01/14/2018 9:01 PM EDT) WBC 9.85 4.80 - 10.80 10*3/mm3 01/14/2018 9:09 PM EDT [facility] RBC 3.98(L) 4.20 - 5.40 10*6/mm3 01/14/2018 9:09 PM EDT [facility] Hemoglobin 11.8(L) 12.0 - 16.0 g/dL 01/14/2018 9:09 PM EDT [facility] Hematocrit 33.9(L) 37.0 - 47.0 % 01/14/2018 9:09 PM EDT [facility] MCV 85.2 81.0 - 99.0 fL 01/14/2018 9:09 PM EDT [facility] MCH 29.6 27.0 - 31.0 pg 01/14/2018 9:09 PM EDT [facility] MCHC 34.8 30.0 - 37.0 g/dL 01/14/2018 9:09 PM EDT [facility] RDW 11.9 11.5 - 14.5 % 01/14/2018 9:09 PM EDT [facility] RDW-SD 37.0 37.0 - 54.0 fl 01/14/2018 9:09 PM EDT [facility] MPV 13.2(H) 6.0 - 12.0 fL 01/14/2018 9:09 PM EDT [facility] Platelets 192 130 - 400 10*3/mm3 01/14/2018 9:09 PM EDT [facility] Neutrophil % 44.4 37.0 - 80.0 % 01/14/2018 9:09 PM EDT [facility] Lymphocyte % 46.7 10.0 - 50.0 % 01/14/2018 9:09 PM EDT [facility] Monocyte % 4.5 0.0 - 12.0 % 01/14/2018 9:09 PM EDT [facility] Eosinophil % 3.8 0.0 - 7.0 % 01/14/2018 9:09 PM EDT [facility] Basophil % 0.4 0.0 - 2.5 % 01/14/2018 9:09 PM EDT [facility] Immature Grans % 0.2 0.0 - 0.6 % 01/14/2018 9:09 PM EDT [facility] Neutrophils, Absolute 4.38 2.00 - 6.90 10*3/mm3 01/14/2018 9:09 PM EDT [facility] Lymphocytes, Absolute 4.60(H) 0.60 - 3.40 10*3/mm3 01/14/2018 9:09 PM EDT [facility] Monocytes, Absolute 0.44 0.00 - 0.90 10*3/mm3 01/14/2018 9:09 PM EDT [facility] Eosinophils, Absolute 0.37 0.00 - 0.70 10*3/mm3 01/14/2018 9:09 PM EDT [facility] Basophils, Absolute 0.04 0.00 - 0.20 10*3/mm3 01/14/2018 9:09 PM EDT [facility] Immature Grans, Absolute 0.02 0.00 - 0.06 10*3/mm3 01/14/2018 9:09 PM EDT [facility] nRBC 0.0 0.0 - 0.0 /100 WBC 01/14/2018 9:09 PM EDT [facility] Blood Venipuncture / Unknown 01/14/2018 9:01 PM EDT 01/14/2018 9:06 PM EDT us Stormy Vays [employer] LAB BLOOD ORDERABLE S Final Result [facility]
[address] [id number], * Lactic Acid, Plasma (01/14/2018 9:01 PM EDT) Lactate 1.7 0.5 - 2.0 mmol/L 01/14/2018 9:23 PM EDT [facility] Blood Venipuncture / Unknown 01/14/2018 9:01 PM EDT 01/14/2018 9:06 PM EDT Stormy Vyas [employer] LAB BLOOD ORDERABLE S Final Result [facility]
[address] [place] [address], * (ABNORMAL) Comprehensive Metabolic Panel (01/14/2018 9:01 PM EDT) Glucose 380(HH) 74 - 98 mg/dL 01/14/2018 9:51 PM EDT [facility] BUN 30(H) 7 - 20 mg/dL 01/14/2018 9:51 PM EDT [facility] Creatinine 2.00(H) 0.60 - 1.30 mg/dL 01/14/2018 9:51 PM EDT [facility] Sodium 134(L) 137 - 145 mmol/L 01/14/2018 9:51 PM EDT [facility] Potassium 4.3 3.5 - 5.1 mmol/L 01/14/2018 9:51 PM EDT [facility] Chloride 101 98 - 107 mmol/L 01/14/2018 9:51 PM EDT [facility] CO2 22.0(L) 26.0 - 30.0 mmol/L 01/14/2018 9:51 PM EDT [facility] Calcium 9.5 8.4 - 10.2 mg/dL 01/14/2018 9:51 PM EDT [facility] Total Protein 6.9 6.3 - 8.2 g/dL 01/14/2018 9:51 PM EDT [facility] Albumin 3.80 3.50 - 5.00 g/dL 01/14/2018 9:51 PM EDT [facility] ALT (SGPT) 12(L) 13 - 69 U/L 01/14/2018 9:51 PM EDT [facility] AST (SGOT) 15 15 - 46 U/L 01/14/2018 9:51 PM EDT [facility] Alkaline Phosphatase 104 38 - 126 U/L 01/14/2018 9:51 PM EDT [facility] Total Bilirubin 0.3 0.2 - 1.3 mg/dL 01/14/2018 9:51 PM EDT [facility] eGFR Non Amer 30(L) >60 mL/min/1.7 3 01/14/2018 9:51 PM EDT [facility] Globulin 3.1 gm/dL 01/14/2018 9:51 PM EDT [facility] A/G Ratio 1.2 1.0 - 2.0 g/dL 01/14/2018 9:51 PM EDT [facility] BUN/Creatinine Ratio 15.0 7.1 - 23.5 01/14/2018 9:51 PM EDT [facility] Anion Gap 15.3 10.0 - 20.0 mmol/L 01/14/2018 9:51 PM EDT [facility] Blood Venipuncture / Unknown 01/14/2018 9:01 PM EDT 01/14/2018 9:06 PM EDT Narrative [facility] - 01/14/2018 9:51 PM EDT GFR Normal >60 Chronic Kidney Disease <60 Kidney Failure <15 Stormy Vyas [employer] LAB BLOOD ORDERABLE S Final Result [facility]
[address] [place] [address], [place] [phone] * (ABNORMAL) Urinalysis, Microscopic Only - Urine, Clean Catch (01/14/2018 9:00 PM EDT) RBC, UA 0-2(A) None Seen /HPF 01/14/2018 9:25 PM EDT [facility] WBC, UA 0-2(A) None Seen /HPF 01/14/2018 9:25 PM EDT [facility] Bacteria, UA Trace(A) None Seen /HPF 01/14/2018 9:25 PM EDT [facility] Squamous Epithelial Cells, UA 3-6(A) None Seen, 0-2 /HPF 01/14/2018 9:25 PM EDT [facility] Hyaline Casts, UA None Seen None Seen /LPF 01/14/2018 9:25 PM EDT [facility] Mucus, UA Trace None Seen, Trace /HPF 01/14/2018 9:25 PM EDT [facility] Methodology Manual Light Microscopy 01/14/2018 9:25 PM T [facility] Urine Urine specimen collection, clean catch / Unknown Collection / Unknown 01/14/2018 9:00 PM EDT 01/14/2018 9:06 PM EDT Stormy Vyas [employer] URINE ORDERABLES nal Result [facility]
[address] [place] [address], [place] [phone] * (ABNORMAL) Urinalysis With Culture If Indicated - Urine, Clean Catch (01/14/2018 9:00 PM EDT) Color, UA Yellow Yellow, Straw 01/14/2018 9:13 PM EDT [facility] Appearance, UA Clear Clear 01/14/2018 9:13 PM EDT [facility] pH, UA 6.5 5.0 - 8.0 01/14/2018 9:13 PM EDT [facility] Specific [place], UA 1.020 1.005 - 1.030 01/14/2018 9:13 PM EDT [facility] Glucose, UA >=1000 mg/dL (3+)(A) Negative 01/14/2018 9:13 PM EDT [facility] Ketones, UA Negative Negative 01/14/2018 9:13 PM EDT [facility] Bilirubin, UA Negative Negative 01/14/2018 9:13 PM EDT [facility] Blood, UA Trace(A) Negative 01/14/2018 9:13 PM EDT [facility] Protein, UA >=300 mg/dL (3+)(A) Negative 01/14/2018 9:13 PM EDT [facility] Leuk Esterase, UA Negative Negative 01/14/2018 9:13 PM EDT [facility] Nitrite, UA Negative Negative 01/14/2018 9:13 PM EDT [facility] Urobilinogen, UA 0.2 E.U./dL 0.2 - 1.0 E.U./dL 01/14/2018 9:13 PM EDT [facility] Urine Urine specimen collection, clean catch / Unknown Collection / Unknown 01/14/2018 9:00 PM EDT 01/14/2018 9:06 PM EDT Stormy Vysa APRN URINE ORDERABLES Fi nal Result Performing Organization Address City/[facility]/ZIP Co de Phone Number [facility]
[address] [place] [address], * (ABNORMAL) POC Glucose Once (01/14/2018 8:05 PM EDT) [facility] Signature Glucose 533(HH) 70 - 130 mg/dL 01/14/2018 8:10 PM EDT [facility] Comment:Serial Number: [id number] Blood 01/14/2018 8:05 PM EDT 01/14/2018 8:10 PM EDT Dominik Rizo MD POINT OF CARE TEST ORDERABLES Final Result Performing Organization Address [facility]/ZIP Co de Phone Number [facility]
[address] [place] [address], [place] [phone] documented in this encounter Visit Diagnoses Diagnosis [...] RN) documented in this encounter Care Teams Station Gateman Relationship Specialty Start Date End Date Lauren Slade APRN [address] [facility] [address] [place] [address] PCP - General Family Medicine 09/22/17 02/05/18 documented as of this encounter
--- OUTSIDE RECORDS SUMMARY | 2024-06-04 08:02 | XMS_ITS | Encounter Summary ---
Author Organization [facility] Address [address] [place] [address] Care Team Providers Care Steam Hand Name Role Phone Lauren Slade ANJU Primary Care Provider [phone] Reason for Visit * Reason Comments Hyperglycemia Encounter Details Date Type Department Care Team (Late st Contact Info) Description 09/22/2017 1:43 PM EST - 09/22/2017 5:43 PM EST Emergency [facility] [address] [place] [phone] Krissy Bowman MD Hyperglycemia (Primary Dx); [...] be sent through Care Everywhere. * HYPERGLYCEMIA (JAPANESE) * HYPERTENSION (JAPANESE) * TYPE 2 DIABETES MELLITUS SELF CARE ADULT (JAPANESE) documented in this encounter Medications at Time [...] had some medications adjusted recently by her celery wrapper but states there wassome miscommunication and so [...] to patient's outpatient labs recently at the [facility]. He was able to obtain old records [...] 09/22/2017 2:13 PM Krissy Bowman MD 09/22/17 1149 documented in this encounter Plan of Treatment [...] - 130 mg/dL 09/22/2017 5:15 PM EST [facility] Comment:Serial Number: [id number] Blood 09/22/2017 5:10 PM EST 09/22/2017 5:15 PM EST Krissy Bowman MD POINT OF CARE TEST ORDE TORITO Final Result Performing Organization Address City/[facility]/ZIP Co de Phone Number [facility]
[address] [place] [address], * (ABNORMAL) POC Glucose Once (09/22/2017 4:15 PM EST) Glucose 404(H) 70 - 130 mg/dL 09/22/2017 5:15 PM EST [facility] Comment:Serial Number: [id number] Blood 09/22/2017 4:15 PM EST 09/22/2017 5:15 PM EST Krissy Bowman MD POINT OF CARE TEST ORDE TORITO Final Result Performing Organization Address [facility] Co de Phone Number [facility]
[address] [place] [address], * (ABNORMAL) POC Glucose Once (09/22/2017 3:13 PM EST) Glucose 532(HH) 70 - 130 mg/dL 09/22/2017 3:20 PM EST [facility] Comment:Serial Number: [id number] Blood 09/22/2017 3:13 PM EST 09/22/2017 3:20 PM EST Krissy Bowman MD POINT OF CARE TEST ORDBrien UGARTE Final Result Performing Organization Address City/[facility]/ZIP Co de Phone Number [facility]
[address] [phone], * (ABNORMAL) CBC Auto Differential (09/22/2017 2:11 PM EST) [facility] WBC 9.75 4.80 - 10.80 10*3/mm3 09/22/2017 2:43 PM [facility] RBC 4.27 4.20 - 5.40 10*6/mm3 09/22/2017 2:43 PM [facility] Hemoglobin 12.5 12.0 - 16.0 g/dL 09/22/2017 2:43 PM [facility] Hematocrit 37.3 37.0 - 47.0 % 09/22/2017 2:43 PM [facility] MCV 87.4 81.0 - 99.0 fL 09/22/2017 2:43 PM [facility] MCH 29.3 27.0 - 31.0 pg 09/22/2017 2:43 PM [facility] MCHC 33.5 30.0 - 37.0 g/dL 09/22/2017 2:43 PM [facility] RDW 12.2 11.5 - 14.5 % 09/22/2017 2:43 PM [facility] RDW-SD 39.2 37.0 - 54.0 fl 09/22/2017 2:43 PM [facility] MPV 12.8(H) 6.0 - 12.0 fL 09/22/2017 2:43 PM [facility] Platelets 248 130 - 400 10*3/mm3 09/22/2017 2:43 PM [facility] Neutrophil % 65.1 37.0 - 80.0 % 09/22/2017 2:43 PM [facility] Lymphocyte % 26.9 10.0 - 50.0 % 09/22/2017 2:43 PM [facility] Monocyte % 4.1 0.0 - 12.0 % 09/22/2017 2:43 PM [facility] Eosinophil % 2.4 0.0 - 7.0 % 09/22/2017 2:43 PM [facility] Basophil % 0.5 0.0 - 2.5 % 09/22/2017 2:43 PM EST [facility] Immature Grans % 1.0(H) 0.0 - 0.6 % 09/22/2017 2:43 PM EST [facility] Neutrophils, Absolute 6.35 2.00 - 6.90 10*3/mm3 09/22/2017 2:43 PM EST [facility] Lymphocytes, Absolute 2.62 0.60 - 3.40 10*3/mm3 09/22/2017 2:43 PM EST [facility] Monocytes, Absolute 0.40 0.00 - 0.90 10*3/mm3 09/22/2017 2:43 PM EST [facility] Eosinophils, Absolute 0.23 0.00 - 0.70 10*3/mm3 09/22/2017 2:43 PM [facility] Basophils, Absolute 0.05 0.00 - 0.20 10*3/mm3 09/22/2017 2:43 PM EST [facility] Immature Grans, Absolute 0.10(H) 0.00 - 0.06 10*3/mm3 09/22/2017 2:43 PM [facility] nRBC 0.0 0.0 - 0.0 /100 WBC 09/22/2017 2:43 PM [facility] Blood Venipuncture / Unknown 09/22/2017 2:11 PM EST 09/22/2017 2:18 PM EST Krissy Bowman MD LAB BLOOD ORDERABLES Fi nal Result [facility]
[address] [place] [address], [place] [phone] * (ABNORMAL) Comprehensive Metabolic Panel (09/22/2017 2:11 PM EST) Glucose 679(HH) 74 - 98 mg/dL 09/22/2017 2:55 PM EST [facility] Comment:Glucose >180, Hemogl obin A1C recommended. BUN 27(H) 7 - 20 mg/dL 09/22/2017 2:55 PM EST [facility] Creatinine 1.70(H) 0.60 - 1.30 mg/dL 09/22/2017 2:55 PM [facility] Sodium 132(L) 137 - 145 mmol/L 09/22/2017 2:55 PM [facility] Potassium 5.0 3.5 - 5.1 mmol/L 09/22/2017 2:55 PM [facility] Chloride 97(L) 98 - 107 mmol/L 09/22/2017 2:55 PM [facility] CO2 20.0(L) 26.0 - 30.0 mmol/L 09/22/2017 2:55 PM [facility] Calcium 8.9 8.4 - 10.2 mg/dL 09/22/2017 2:55 PM [facility] Total Protein 7.1 6.3 - 8.2 g/dL 09/22/2017 2:55 PM [facility] Albumin 3.80 3.50 - 5.00 g/dL 09/22/2017 2:55 PM [facility] ALT (SGPT) 27 13 - 69 U/L 09/22/2017 2:55 PM [facility] AST (SGOT) 11(L) 15 - 46 U/L 09/22/2017 2:55 PM [facility] Alkaline Phosphatase 129(H) 38 - 126 U/L 09/22/2017 2:55 PM [facility] Total Bilirubin 0.4 0.2 - 1.3 mg/dL 09/22/2017 2:55 PM [facility] eGFR Non Amer 36(L) >60 mL/min/1.7 3 09/22/2017 2:55 PM [facility] Globulin 3.3 gm/dL 09/22/2017 2:55 PM [facility] A/G Ratio 1.2 1.0 - 2.0 g/dL 09/22/2017 2:55 PM [facility] BUN/Creatinine Ratio 15.9 7.1 - 23.5 09/22/2017 2:55 PM [facility] Anion Gap 20.0 mmol/L 09/22/2017 2:55 PM EST [facility] Blood Venipuncture / Unknown 09/22/2017 2:11 PM EST 09/22/2017 2:18 PM EST us Krissy Bowman MD LAB BLOOD ORDERABLES Fi nal Result Performing Organization Address City/[facility]/ZIP Co de Phone Number [facility]
[address] [place] [address], * Green Top (No Gel) (09/22/2017 2:11 PM EST) Extra Tube Hold for add-ons. 09/22/2017 3:16 PM EST [facility] Comment:Auto resulted. Blood Venipuncture / Unknown 09/22/2017 2:11 PM EST 09/22/2017 2:18 PM EST Krissy Bowman MD LAB BLOOD ORDER ONLY Fi nal Result Performing Organization Address [facility] Co de Phone Number [facility]
[address] [place] [address], [place] [phone] * Gold Top - SST (09/22/2017 2:11 PM EST) Extra Tube Hold for add-ons. 09/22/2017 3:16 PM EST [facility] Comment:Auto resulted. Blood Venipuncture / Unknown 09/22/2017 2:11 PM EST 09/22/2017 2:18 PM EST Krissy Bowman MD LAB BLOOD ORDER ONLY Fi nal Result Performing Organization Address City/[facility] Co de Phone Number [facility]
[address] [place] [address], [place] [phone] * Lavender Top (09/22/2017 2:11 PM EST) Extra Tube hold for add-on 09/22/2017 3:16 PM EST [facility] Comment:Auto resulted Blood Venipuncture / Unknown 09/22/2017 2:11 PM EST 09/22/2017 2:18 PM EST us Krissy Bowman MD LAB BLOOD ORDER ONLY Fi nal Result Performing Organization Address [facility] Co de Phone Number [facility]
[address] [place] [address], * Light Blue Top (09/22/2017 2:11 PM EST) Extra Tube hold for add-on 09/22/2017 3:16 PM EST [facility] Comment:Auto resulted Blood Venipuncture / Unknown 09/22/2017 2:11 PM EST 09/22/2017 2:18 PM EST us Krissy Bowman MD LAB BLOOD ORDER ONLY Fi nal Result Performing Organization Address [facility] Co de Phone Number [facility]
[address] [place] [address], [place] [phone] * Urine Culture - Urine, Urine, Clean Catch (09/22/2017 2:04 PM EST) Pathologist [facility] Urine Culture No growth KIRA 09/24/2017 6:14 AM EST [facility] Urine Urine specimen collection, clean catch / Unknown Collection / Unknown 09/22/2017 2:04 PM EST 09/22/2017 2:07 PM EST us Krissy Bowman MD MICROBIOLOGY - GENERAL ORDERABLES Final Result Performing Organization Address [facility] de Phone Number [facility]
[address] [place] [address], [place] [phone] * (ABNORMAL) Urinalysis, Microscopic Only - Urine, Clean Catch (09/22/2017 2:04 PM EST) RBC, UA 0-2(A) None Seen /HPF 09/22/2017 2:43 PM [facility] WBC, UA 0-2(A) None Seen /HPF 09/22/2017 2:43 PM [facility] Bacteria, UA Trace(A) None Seen /HPF 09/22/2017 2:43 PM EST [facility] Squamous Epithelial Cells, UA 3-6(A) None Seen, 0-2 /HPF 09/22/2017 2:43 PM EST [facility] Yeast, UA Small/1+ Budding Yeast None Seen /HPF 09/22/2017 2:43 PM [facility] Hyaline Casts, UA None Seen None Seen /LPF 09/22/2017 2:43 PM [facility] Methodology Manual Light Microscopy 09/22/2017 2:43 PM [facility] Urine Urine specimen collection, clean catch / Unknown Collection / Unknown 09/22/2017 2:04 PM EST 09/22/2017 2:07 PM EST [facility] Mickey Bowman MD URINE ORDERABLES Final Result [facility]
[address] [place] [address], * (ABNORMAL) Urinalysis With / Culture If Indicated - Urine, Clean Catch (09/22/2017 2:04 PM EST) Color, UA Yellow Yellow, Straw 09/22/2017 2:43 PM [facility] Appearance, UA Clear Clear 09/22/2017 2:43 PM [facility] pH, UA 6.0 5.0 - 8.0 09/22/2017 2:43 PM [facility] Specific [place], UA 1.020 1.005 - 1.030 09/22/2017 2:43 PM [facility] Glucose, UA 500 mg/dL (2+)(A) Negative 09/22/2017 2:43 PM [facility] Ketones, UA Negative Negative 09/22/2017 2:43 PM [facility] Bilirubin, UA Negative Negative 09/22/2017 2:43 PM EST [facility] Blood, UA Trace(A) Negative 09/22/2017 2:43 PM EST [facility] Protein, UA >=300 mg/dL (3+)(A) Negative 09/22/2017 2:43 PM EST [facility] Leuk Esterase, UA Negative Negative 09/22/2017 2:43 PM EST [facility] Nitrite, UA Negative Negative 09/22/2017 2:43 PM EST [facility] Urobilinogen, UA 0.2 E.U./dL 0.2 - 1.0 E.U./dL 09/22/2017 2:43 PM EST [facility] Urine Urine specimen collection, clean catch / Unknown Collection / Unknown 09/22/2017 2:04 PM EST 09/22/2017 2:07 PM EST Krissy Bowman MD URINE ORDERABLES Final Result Performing Organization Address City/[facility]/ZIP Co de Phone Number [facility]
[address] [place] [address], [place] [phone] * (ABNORMAL) POC Glucose Once (09/22/2017 2:03 PM EST) Glucose >599(HH) 70 - 130 mg/dL 09/22/2017 2:10 PM EST [facility] Comment:Serial Number: [id number] Blood 09/22/2017 2:03 PM EST 09/22/2017 2:10 PM EST Krissy Bowman MD POINT OF CARE TEST ORDBrien UGARTE Final Result Performing Organization Address City/[facility] Co de Phone Number [facility]
[address] [place] [address], [place] [phone] documented in this encounter Visit Diagnoses Diagnosis [...] 1411 documented in this encounter Care Teams Steam Hand Relationship Specialty Start Date End Date Lauren Slade APRN [address], [place] [address] [place] [address] PCP - General Family Medicine 09/22/17 02/05/18 documented as of this encounter
--- OUTSIDE RECORDS SUMMARY | 2024-06-04 08:02 | XMS_ITS | Encounter Summary ---
Author Organization [facility] Address [address] [id number] Care Team Providers Care Third Rigger Name Role Phone Pedro Harper MD, Devi Primary Care Provider [phone] Reason for Referral * Consultation (Routine) - Closed Specialty Diagnoses / Procedures Referred By Contac t Referred To Contact Obstetrics and Gynecology Diagnoses Devi Vasquez MD [address] [facility] [address] [place] [address] Phone: tel: fax: Jaskaran Quintana MD [address] [facility] [address] [place] [address] Phone: tel: fax: Referral ID Status Reason Start Date Expiration Date V isits Requested Visits Authorized [id number] Closed Specialty Services Required 12/30/2015 06/27/2016 1 1 Reason for Visit * Reason Comments Establish Care moved from [place] last period October. thinks she is Diabetes on insulin pump. 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 [address] [place] [address] Devi Vasquez MD [address] [facility] [address] [place] [address] Missed period (Primary Dx); ; Type 2 [...] tortilla. ? of a hamburger bun or [place] muffin. ?? 4-6 crackers. ? cup unsweetened [...] foods that contain carbohydrates: ?? Rice. ? [place]. ? Milk. ? Strawberries. Step 2:??Calculate the [...] Reviewed: 05/31/2014 Elsevier Interactive Patient Education ??2016 [employer] documented in this encounter Progress Notes [...] weeks. Pt sugar was over 400 [facility] recently. She did not put enough insulin in her insulin pump. Pt is a smoker. Pt has an appt with Dr Jaskaran Quintana on 01/05/16 who delivered her last child. Pt needs referral. Pt needs statement for [facility] Pt does not communicate with her parents [...] 11:06 AM EDT) Hemoglobin A1C 11.2 % [facility] Blood specimen (specimen) 12/30/2015 11:06 AM EDT us Devi Harper MD POINT OF CARE TEST ORDERABL ES Final Result [facility]
[address] [place] [address], * (ABNORMAL) POCT , urine (12/30/2015 10:58 AM EDT) HCG, Urine, QL Positive(A ) Negative [facility] Urine specimen (specimen) 12/30/2015 10:58 AM EDT us Devi Harper MD POINT OF CARE TEST ORDERABL ES Final Result [facility]
[address] [place] [address], documented in this encounter Visit Diagnoses Diagnosis Missed period- Primary Type 2 diabetes mellitus with hyperglycemia documented in this encounter Care Teams Third Rigger Relationship Specialty Start Date End Date Devi Vasquez MD [address] [facility] [address] [place] [address] PCP - General Family Medicine 12/30/15 01/24/17 documented as of this encounter
--- OUTSIDE RECORDS SUMMARY | 2024-06-04 08:02 | XMS_ITS | Clinical Summary ---
Author Organization [facility] Address [address] [place] [address] Care Team Providers Care Deck Lid Fitter Name Role Phone Jaquan Conley MD Primary Care Provider [phone] Allergies Active Allergy Reactions Criticality Noted Date [...] Description 05/23/2024 11:00 AM EST Office Visit [facility] [address] [place] [address] Erica Ventura PA Type 2 diabetes mellitus with other specified complication, with long-term current use of insulin ([facility]) (Primary Dx); Renal transplant recipient 05/23/2024 Travel 04/03/2024 Telephone [facility] [address], [address] [place] [address] Marilyn Valencia, PROMOTION WRITER from Last 3 Months Immunizations Name Administration [...] [facility] [address] [place] [address] Erica Ventura PA [address] [place] [address] Health Maintenance Due Date Last Done Comments [facility]-HIV Screening 1989 [facility]-Infant/Child/Adol SDOH Screenings 1989 [id number] Vaccine (#1) 1994 Diabetes: Dental Exam 1999 [...] complication, with long-term current use of insulin ([facility]) CYTO DATA CONVERSION Routine 10/29/2014 12:00 AM EDT from Last 3 Months or Most Recently Relevant to Health Maintenance Results * (ABNORMAL) POCT glycosylated hemoglobin (Hb A1C) (05/23/2024 11:03 AM EST) POCT Hemoglobin A1C 5.8 <5.7% Non-Diabe tic % [facility] Kit Lot Number [id number] [facility] Kit Expiration Date 03/17/2026 [facility] Blood Venous blood specimen / Unknown 05/23/2024 11:03 AM EST Erica MENDEZ POINT OF CARE TEST EN TER/EDIT ORDERABLES Final Result [facility] [address] [place] [address] * Cytology (10/29/2014 12:00 AM EDT) 10/29/2014 10/31/2014 12: 33 PM EDT Narrative [facility] - 11/06/2014 11:15 AM EDT [facility] ?MR #: [id number] [facility] ?FREDDIE ARCHER [place], [place] ??[address] ?1990 (Age: 24) ?? FW ?Collect Date: 10/29/2014 00:00 ?Receipt Date: 10/31/2014 12:33 ?Page 1 DEPARTMENT OF PATHOLOGY AND ??LABORATORY MEDICINE CYTOPATHOLOGY REPORT ? Email: [email or web address] ? ATTENDING MD/Practitioner: ??John Celestin APRN ? Service: PAT ? Location: [facility] ? Reported: 11/06/2014 11:15 ? Collected: 10/29/2014 00:00 INTERPRETATION A. ??THIN PREP (CERVICAL/VAGINAL): ? NEGATIVE FOR INTRAEPITHELIAL LESION OR MALIGNANCY. ? SATISFACTORY FOR EVALUATION; ENDOCERVICAL/ TRANSFORMATION ZONE COMPONENT PRESENT. Slide scanned and imaged by Table8 ThinPrep Imaging System with manual review of [...] results is suggested (please call Microbiology at [phone] for results). CLINICAL INFORMATION: Menstrual History: Cyclic Date of Last Menstrual Period: ? 10/03/14 Other Clinical Conditions: If ASCUS and > 24 years of age, HPV/DNA testing requested. SPECIMEN DESCRIPTION: A: ??THIN PREP (CERVICAL/VAGINAL) ? THIN PREP PROCESS CELLULAR ENHANCEMENT ICD: ??F: A; RT IMAGE [id number] SNOMED CODES: A; [id number] In cases where a pathologist has signed out the report, the service has been rendered in part by a resident. The signing pathologist has performed and is responsible for the reported pathologic evaluation. us [facility] Provider LAB PATHOLOGY ORDERABLES Final Result [facility] from Last 3 Months or Most Recently Relevant to Health Maintenance Insurance [facility] MEDICAID Care Teams Deck Lid Fitter Relationship Specialty Start Date End Date Jaquan Conley MD [address] [place] [address] PCP - General 11/28/20
--- OUTSIDE RECORDS SUMMARY | 2024-06-04 08:02 | XMS_ITS | Encounter Summary ---
Author Organization [facility] Address [address] [place] [address] Care Team Providers Care Voice And Data Technician Name Role Phone Jaquan Conley MD Primary Care Provider + [phone] Encounter Details Date Type Department Care Team [...] 08/28/2024 11:00 AM EST [facility] [address], [address] [place] [address] Erica Ventura PA [address] [place] [address] documented as of this encounter Visit Diagnoses Not on filedocumented in this encounter Additional Health Concerns Assessment Noted Time A fall risk assessment has been complete d for the patient 06/20/2023 12:51 PM EST A Body Mass Index follow-up plan has been documented for the patient 05/23/2024 12:56 PM EST documented as of this encounter Care Teams Voice And Data Technician Relationship Specialty Start Date End Date Jaquan Conley MD [address] [place], [place] [id number] PCP - General 11/28/20 documented as of this encounter
--- OUTSIDE RECORDS SUMMARY | 2024-06-04 08:02 | XMS_ITS | Encounter Summary ---
Author Organization [facility] Address [address] [place] [address] Care Team Providers Care Senior Programmer Name Role Phone Jaquan Conley MD Primary Care Provider + [phone] Reason for Visit * Reason Comments Type 1 diabetes mellitus with other spec ified complication Encounter Details Date Type Department Care Team (Late st Contact Info) Description 05/23/2024 11:00 AM EST [facility] [address] [facility], [address] [place] [address] Erica Ventura PA [address] [facility] [address] [place] [address] Type 2 diabetes mellitus with other specified complication, with long-term current use of insulin ([facility]) (Primary Dx); Renal transplant recipient Social History [...] education team with any questions or concerns [phone] * Progress Notes - Erica Ventura PA [...] a single kidney transplant on 12/02 at [facility], prednisone was stopped due to rash, currently on cellcept and tacro twice daily. TH visit 01/26 with Erik RENE. At telehealth visit, patient's pump was unable [...] and due to elevated C-peptide, now on [facility] Medicaid. -Patient also endorses discussing pancreas [...] of care. Electronically signed by: ANDREA Paul [facility] [address] [place] [address]. [address] [place] [address] PHONE [phone] FAX: [phone] documented in this encounter Plan of Treatment Upcoming Encounters Date Type Department Care Team (Late st Contact Info) Description 08/28/2024 11:00 AM EST Office Visit [facility] Endocr[facility]ology [address] [place], [place] [address] [place] [address] Erica Ventura PA [address] [facility] [address] [place] [address] documented as of this encounter Procedures Procedure Name Priority Date/Time Associated Diagnosis Comments POCT GLYCOSYLATED HEMOGLOBIN (HGB A1C) Routine 05/23/2024 11:03 AM EST Type 2 diabetes mellitus with other specified complication, with long-term current use of insulin ([facility]) documented in this encounter Results * (ABNORMAL) POCT glycosylated hemoglobin (Hb A1C) (05/23/2024 11:03 AM EST) POCT Hemoglobin A1C 5.8 <5.7% Non-Diabe tic % [facility] Kit Lot Number [id number] [facility] Kit Expiration Date 03/17/2026 [facility] Blood Venous blood specimen / Unknown 05/23/2024 11:03 AM EST us Erica MENDEZ POINT OF CARE TEST EN TER/EDIT ORDERABLES Final Result [facility] [address] [place] [address] documented in this encounter Visit Diagnoses Diagnosis Type 2 diabetes mellitus with other specified complication, with long-term current use of insulin ([facility])- Primary Renal transplant recipient documented in this encounter Additional Health Concerns Assessment Noted Time A fall risk assessment has been complete d for the patient 06/20/2023 12:51 PM EST A Body Mass Index follow-up plan has been documented for the patient 05/23/2024 12:56 PM EST documented as of this encounter Care Teams Senior Programmer Relationship Specialty Start Date End Date Jaquan Conley MD [address] [place] [address] PCP - General 11/28/20 documented as of this encounter
--- OUTSIDE RECORDS SUMMARY | 2024-06-04 08:02 | XMS_ITS | Encounter Summary ---
Author Organization [facility] Address [address] [place] [address] Care Team Providers Care Incendiaries Supervisor Name Role Phone Jaquan Conley MD Primary Care Provider + [phone] Encounter Details Date Type Department Care Team (Late st Contact Info) Description 04/03/2024 Telephone [facility] Endocrinology [address], [address] [place] [address] Marilyn Valencia, RARE/ENDANGERED SPECIES SPECIALIST [address] [facility] [address] [place] [address] Social History Tobacco Use Types [...] Description 08/28/2024 11:00 AM EST Office Visit [facility] Endocrinology [address], [address] [place] [address] Erica Ventura PA [address] [place] [address] documented as of this encounter Visit Diagnoses Diagnosis Type 2 diabetes mellitus with other specified complication, with long-term current use of insulin ([facility]) documented in this encounter Additional Health Concerns Assessment Noted Time A fall risk assessment has been complete d for the patient 06/20/2023 12:51 PM EST A Body Mass Index follow-up plan has been documented for the patient 01/27/2024 1:29 PM EDT documented as of this encounter Care Teams Incendiaries Supervisor Relationship Specialty Start Date End Date Jaquan Conley MD [address] [place] [id number] PCP - General 11/28/20 documented as of this encounter
--- OUTSIDE RECORDS SUMMARY | 2024-06-04 08:02 | XMS_ITS | Encounter Summary ---
Author Organization [facility] Address [address] [place] [address] Care Team Providers Care Electrical Assembly Technician Name Role Phone Jaquan Conley MD Primary Care Provider [phone] Reason for Visit * Reason Comments Flank Pain Encounter Details Date Type Department Care Team (Late st Contact Info) Description 05/10/2017 12:39 PM EDT - 05/10/2017 7:05 PM EDT Emergency [facility] [address] [place] [phone] Tatum James MD [address] [place] [address] Hyperglycemia (Primary Dx); Noncompliance with medication regimen; [...] be sent through Care Everywhere. * HYPERGLYCEMIA (SWEDISH) * NONSPECIFIC CHEST PAIN (SWEDISH) documented in this encounter Medications at Time [...] prior to discharge Shaunna Grant RN 05/10/17 5203 * Pearl Wakefield APRN - 05/10/2017 1:38 [...] to her primary care provider today at [facility] and they referred her here for [...] pain shortness of air nausea orvomiting. Pearl Wakefeild APRN 05/10 174 Wells' Criteria (for pulmonary [...] pain, unspecified type Pearl Wakefield APRN 05/10/17 605 Cosigned by Tatum James MD at 05/10/2017 5:55 PM EDT Associated attestation - Tatum James MD - 05/10/2017 5:55 PM EDT For this patient encounter, I reviewed the MONORAIL HOOKER or PA documentation, treatment plan, and medical [...] - 130 mg/dL 05/10/2017 5:45 PM EDT [facility] Comment:Serial Number: [id number] Blood 05/10/2017 5:40 PM EDT 05/10/2017 5:45 PM EDT Tatum James MD POINT OF CARE TEST ORD ERABLES Final Result Performing Organization Address [facility] Co de Phone Number [facility]
[address] [place] [address], * Troponin (05/10/2017 4:39 PM EDT) Troponin I <0.012 0.000 - 0.034 ng/mL 05/10/2017 5:28 PM EDT [facility] Blood Venipuncture / Unknown 05/10/2017 4:39 PM EDT 05/10/2017 4:42 PM EDT Narrative [facility] - 05/10/2017 5:28 PM EDT Normal Patient Upper Reference Limit (URL) (99th Percentile)=0.03 ng/mL Non-AMI Illness Reference Limit=0.03-0.11 ng/mL AMI Confirmation=0.12 ng/mL and above Pearl Wakefield GRID CASTER LAB BLOOD ORDERABLES Amy l Result Performing Organization Address City/[facility] Co de Phone Number [facility]
[address] [place] [address], * XR Chest 2 View (05/10/2017 1:58 [...] no acute osseous abnormalities. ? Procedure Note Dang Love PA-C - 05/10/2017 PROCEDURE: XR CHEST [...] None Seen /HPF 05/10/2017 2:10 PM EDT [facility] WBC, UA 0-2(A) None Seen /HPF 05/10/2017 2:10 PM EDT [facility] Bacteria, UA Trace(A) None Seen /HPF 05/10/2017 2:10 PM EDT [facility] Squamous Epithelial Cells, UA 0-2 None Seen, 0-2 /HPF 05/10/2017 2:10 PM EDT [facility] Hyaline Casts, UA None Seen None Seen /LPF 05/10/2017 2:10 PM EDT [facility] Methodology Manual Light Microscopy 05/10/2017 2:10 PM EDT [facility] Urine Urine specimen collection, clean catch / Unknown Collection / Unknown 05/10/2017 1:49 PM EDT 05/10/2017 1:53 PM EDT Pearl Wakefield GRID CASTER URINE ORDERABLES Final Re sult [facility]
[address] [place] [address], [place] [phone] * (ABNORMAL) CBC Auto Differential (05/10/2017 1:49 PM EDT) WBC 8.97 4.80 - 10.80 10*3/mm3 05/10/2017 1:57 PM EDT [facility] RBC 4.32 4.20 - 5.40 10*6/mm3 05/10/2017 1:57 PM EDT [facility] Hemoglobin 12.7 12.0 - 16.0 g/dL 05/10/2017 1:57 PM EDT [facility] Hematocrit 36.6(L) 37.0 - 47.0 % 05/10/2017 1:57 PM EDT [facility] MCV 84.7 81.0 - 99.0 fL 05/10/2017 1:57 PM EDT [facility] MCH 29.4 27.0 - 31.0 pg 05/10/2017 1:57 PM EDT [facility] MCHC 34.7 30.0 - 37.0 g/dL 05/10/2017 1:57 PM EDT [facility] RDW 11.4(L) 11.5 - 14.5 % 05/10/2017 1:57 PM EDT [facility] RDW-SD 35.2(L) 37.0 - 54.0 fl 05/10/2017 1:57 PM EDT [facility] MPV 13.5(H) 6.0 - 12.0 fL 05/10/2017 1:57 PM EDT [facility] Platelets 201 130 - 400 10*3/mm3 05/10/2017 1:57 PM EDT [facility] Neutrophil % 54.2 37.0 - 80.0 % 05/10/2017 1:57 PM EDT [facility] Lymphocyte % 37.5 10.0 - 50.0 % 05/10/2017 1:57 PM EDT [facility] Monocyte % 4.5 0.0 - 12.0 % 05/10/2017 1:57 PM EDT [facility] Eosinophil % 3.1 0.0 - 7.0 % 05/10/2017 1:57 PM EDT [facility] Basophil % 0.3 0.0 - 2.5 % 05/10/2017 1:57 PM EDT [facility] Immature Grans % 0.4 0.0 - 0.6 % 05/10/2017 1:57 PM EDT [facility] Neutrophils, Absolute 4.86 2.00 - 6.90 10*3/mm3 05/10/2017 1:57 PM EDT [facility] Lymphocytes, Absolute 3.36 0.60 - 3.40 10*3/mm3 05/10/2017 1:57 PM EDT [facility] Monocytes, Absolute 0.40 0.00 - 0.90 10*3/mm3 05/10/2017 1:57 PM EDT [facility] Eosinophils, Absolute 0.28 0.00 - 0.70 10*3/mm3 05/10/2017 1:57 PM EDT [facility] Basophils, Absolute 0.03 0.00 - 0.20 10*3/mm3 05/10/2017 1:57 PM EDT [facility] Immature Grans, Absolute 0.04 0.00 - 0.06 10*3/mm3 05/10/2017 1:57 PM EDT [facility] nRBC 0.0 0.0 - 0.0 /100 WBC 05/10/2017 1:57 PM EDT [facility] Blood Venipuncture / Unknown 05/10/2017 1:49 PM EDT 05/10/2017 1:53 PM EDT us Pearl Wakefield GRID CASTER LAB BLOOD ORDERABLES Amy foreman Result [facility]
[address] [place] [address], [place] [phone] * Troponin (05/10/2017 1:49 PM EDT) Troponin I <0.012 0.000 - 0.034 ng/mL 05/10/2017 2:24 PM EDT [facility] Blood Venipuncture / Unknown 05/10/2017 1:49 PM EDT 05/10/2017 1:53 PM EDT [facility] - 05/10/2017 2:24 PM EDT Normal Patient Upper Reference Limit (URL) (99th Percentile)=0.03 ng/mL Non-AMI Illness Reference Limit=0.03-0.11 ng/mL AMI Confirmation=0.12 ng/mL and above Pearl Yanezhead GRID CASTER LAB BLOOD ORDERABLES Amy l Result Performing Organization Address City/[facility]/ZIP Co de Phone Number [facility]
[address] [place] [address], [place] [phone] * D-dimer, Quantitative (05/10/2017 1:49 PM EDT) Pathologist [facility] D-Dimer, Quantitative 270 0 - 500 ng/mL (FEU) 05/10/2017 2:36 PM EDT [facility] Blood Venipuncture / Unknown 05/10/2017 1:49 PM EDT 05/10/2017 1:53 PM EDT Pearl Foreman Wakefield GRID CASTER LAB BLOOD ORDERABLES Amy l Result [facility]
[address] [place] [address], [place] [phone] * (ABNORMAL) Urinalysis With / Culture If Indicated - Urine, Clean Catch (05/10/2017 1:49 PM EDT) Color, UA Yellow Yellow, Straw 05/10/2017 1:58 PM EDT [facility] Appearance, UA Clear Clear 05/10/2017 1:58 PM EDT [facility] pH, UA 5.5 5.0 - 8.0 05/10/2017 1:58 PM EDT [facility] Specific Albert, UA 1.015 1.005 - 1.030 05/10/2017 1:58 PM EDT [facility] Glucose, UA 500 mg/dL (2+)(A) Negative 05/10/2017 1:58 PM EDT [facility] Ketones, UA Negative Negative 05/10/2017 1:58 PM EDT [facility] Bilirubin, UA Negative Negative 05/10/2017 1:58 PM EDT [facility] Blood, UA Small (1+)(A) Negative 05/10/2017 1:58 PM EDT [facility] Protein, UA >=300 mg/dL (3+)(A) Negative 05/10/2017 1:58 PM EDT [facility] Leuk Esterase, UA Negative Negative 05/10/2017 1:58 PM EDT [facility] Nitrite, UA Negative Negative 05/10/2017 1:58 PM EDT [facility] Urobilinogen, UA 0.2 E.U./dL 0.2 - 1.0 E.U./dL 05/10/2017 1:58 PM EDT [facility] Urine Urine specimen collection, clean catch / Unknown Collection / Unknown 05/10/2017 1:49 PM EDT 05/10/2017 1:53 PM EDT us Pearl Wakefield GRID CASTER URINE ORDERABLES Final Re sult [facility]
[address] [place] [address], [place] [phone] * Lipase (05/10/2017 1:49 PM EDT) Lipase 108 23 - 300 U/L 05/10/2017 2:24 PM EDT [facility] Blood Venipuncture / Unknown 05/10/2017 1:49 PM EDT 05/10/2017 1:53 PM EDT us Pearl Wakefield GRID CASTER LAB BLOOD ORDERABLES Amy kellen Result [facility]
[address] [place] [address], * (ABNORMAL) Comprehensive Metabolic Panel (05/10/2017 1:49 PM EDT) Glucose 518(HH) 74 - 98 mg/dL 05/10/2017 2:37 PM EDT [facility] BUN 22(H) 7 - 20 mg/dL 05/10/2017 2:37 PM EDT [facility] Creatinine 1.40(H) 0.60 - 1.30 mg/dL 05/10/2017 2:37 PM EDT [facility] Sodium 133(L) 137 - 145 mmol/L 05/10/2017 2:37 PM EDT [facility] Potassium 4.8 3.5 - 5.1 mmol/L 05/10/2017 2:37 PM EDT [facility] Chloride 103 98 - 107 mmol/L 05/10/2017 2:37 PM EDT [facility] CO2 17.0(L) 26.0 - 30.0 mmol/L 05/10/2017 2:37 PM EDT [facility] Calcium 9.3 8.4 - 10.2 mg/dL 05/10/2017 2:37 PM EDT [facility] Total Protein 6.9 6.3 - 8.2 g/dL 05/10/2017 2:37 PM EDT [facility] Albumin 3.80 3.50 - 5.00 g/dL 05/10/2017 2:37 PM EDT [facility] ALT (SGPT) 27 13 - 69 U/L 05/10/2017 2:37 PM EDT [facility] AST (SGOT) 13(L) 15 - 46 U/L 05/10/2017 2:37 PM EDT [facility] Alkaline Phosphatase 94 38 - 126 U/L 05/10/2017 2:37 PM EDT [facility] Total Bilirubin 0.3 0.2 - 1.3 mg/dL 05/10/2017 2:37 PM EDT [facility] eGFR Non Amer 45(L) >60 mL/min/1.7 3 05/10/2017 2:37 PM EDT [facility] Globulin 3.1 gm/dL 05/10/2017 2:37 PM EDT [facility] A/G Ratio 1.2 1.0 - 2.0 g/dL 05/10/2017 2:37 PM EDT [facility] BUN/Creatinine Ratio 15.7 7.1 - 23.5 05/10/2017 2:37 PM EDT [facility] Anion Gap 17.8 mmol/L 05/10/2017 2:37 PM EDT [facility] Blood Venipuncture / Unknown 05/10/2017 1:49 PM EDT 05/10/2017 1:53 PM EDT [facility] - 05/10/2017 2:37 PM EDT Abnormal estimated GFR should be followed by more specific studies to confirm end stage chronic renal disease. The equation used for calculation may not be accurate for patients less than 19 years old, greater than 70 years old, patients at extremes of weight, malnutrition, or with acute renal dysfunction. us Pearl Wakefield GRID CASTER LAB BLOOD ORDERABLES Amy foreman Result [facility]
[address] [place] [id number], * (ABNORMAL) Blood Gas, Arterial With Co-Ox (05/10/2017 1:29 PM EDT) Site Arterial Line 05/10/2017 1:29 PM EDT [facility] Kamari's Test Positive 05/10/2017 1:29 PM EDT [facility] pH, Arterial 7.356 7.300 - 7.500 pH units 05/10/2017 1:29 PM EDT [facility] pCO2, Arterial 36.3 35.0 - 45.0 mm Hg 05/10/2017 1:29 PM EDT [facility] pO2, Arterial 28.4(LL) 75.0 - 100.0 mm Hg 05/10/2017 1:29 PM EDT [facility] HCO3, Arterial 20.3(L) 22.0 - 28.0 mmol/L 05/10/2017 1:29 PM EDT [facility] Base Excess, Arterial -5.2 mmol/L 05/10/2017 1:29 PM EDT [facility] O2 Saturation, Arterial 54.5 % 05/10/2017 1:29 PM EDT [facility] Hemoglobin, Blood Gas 13.0 12 - 18 g/dL 05/10/2017 1:29 PM EDT [facility] Oxyhemoglobin 52.6(L) 94 - 99 % 05/10/2017 1:29 PM EDT [facility] Methemoglobin 0.80 % 05/10/2017 1:29 PM EDT [facility] Carboxyhemoglobin 2.6 % 017 1:29 PM EDT [facility] Modality Room Air 05/10/2017 1:29 PM EDT [facility] FIO2 21 % 05/10/2017 1:29 PM EDT [facility] Arterial Blood 05/10/2017 1: 29 PM EDT 05/10/2017 1:27 PM EDT Tatum James MD LAB BLOOD ORDERABLES F inal Result [facility]
[address], [place] [address] documented in this encounter Visit [...] [id number] documented in this encounter Care Teams Electrical Assembly Technician Relationship Specialty Start Date End Date Jaquan Conley MD [address] [place] [address] PCP - General 01/25/17 09/21/17 documented as of this encounter
--- OUTSIDE RECORDS SUMMARY | 2024-06-04 08:02 | XMS_ITS | Encounter Summary ---
Author Organization [facility] Address [address] [place] [address] Care Team Providers Care Executive Business Coach Name Role Phone Jaquan Conley MD Primary Care Provider [phone] Reason for Visit * Reason Comments Hyperglycemia Encounter Details Date Type Department Care Team (Late st Contact Info) Description 04/01/2017 1:27 AM EDT - 04/01/2017 5:13 AM EDT Emergency [facility] [address] [place] [address] [phone] Mickey Cerda MD [address] [place] [address] Hyperglycemia (Primary Dx) Discharge Disposition: [...] be sent through Care Everywhere. * HYPERGLYCEMIA, [id number] (PERSIAN) documented in this encounter Medications at Time [...] - 130 mg/dL 04/01/2017 4:20 AM EDT [facility] Comment:Serial Number: [id number] Blood 04/01/2017 4:15 AM EDT 04/01/2017 4:20 AM EDT Mickey Cerda MD POINT OF CARE TEST ORDERABL ES Final Result [facility]
[address] [place] [address], * (ABNORMAL) POC Glucose Fingerstick (04/01/2017 2:55 AM EDT) Glucose 434(H) 70 - 130 mg/dL 04/01/2017 3:00 AM EDT [facility] Comment:Serial Number: [id number] Blood 04/01/2017 2:55 AM EDT 04/01/2017 3:00 AM EDT Mickey Cerda MD POINT OF CARE TEST ORDERABL ES Final Result [facility]
[address] [place] [address], * (ABNORMAL) Urinalysis, Microscopic Only (04/01/2017 2:25 AM EDT) RBC, UA 0-2(A) None Seen /HPF 04/01/2017 2:47 AM EDT [facility] WBC, UA None Seen None Seen /HPF 04/01/2017 2:47 AM EDT [facility] Bacteria, UA Trace(A) None Seen /HPF 04/01/2017 2:47 AM EDT [facility] Squamous Epithelial Cells, UA 3-6(A) None Seen, 0-2 /HPF 04/01/2017 2:47 AM EDT [facility] Hyaline Casts, UA None Seen None Seen /LPF 04/01/2017 2:47 AM EDT [facility] Methodology Manual Light Microscopy 04/01/2017 2:47 AM EDT [facility] Urine Urine specimen collection, clean catch / Unknown Collection / Unknown 04/01/2017 2:25 AM EDT 04/01/2017 2:28 AM EDT Narrative [facility] - 04/01/2017 2:47 AM EDT Rare budding yeast seen us Mickey Cerda MD URINE ORDERABLES Final Resu lt [facility]
[address] [place] [address], [place] [phone] * (ABNORMAL) Urinalysis With / Culture If Indicated (04/01/2017 2:25 AM EDT) Color, UA Yellow Yellow, Straw 04/01/2017 2:40 AM EDT [facility] Appearance, UA Clear Clear 04/01/2017 2:40 AM T [facility] pH, UA 6.0 5.0 - 8.0 04/01/2017 2:40 AM T [facility] Specific [place], UA 1.020 1.005 - 1.030 04/01/2017 2:40 AM EDT [facility] Glucose, UA 500 mg/dL (2+)(A) Negative 04/01/2017 2:40 AM EDT [facility] Ketones, UA Negative Negative 04/01/2017 2:40 AM EDT [facility] Bilirubin, UA Negative Negative 04/01/2017 2:40 AM EDT [facility] Blood, UA Trace(A) Negative 04/01/2017 2:40 AM EDT [facility] Protein, UA >=300 mg/dL (3+)(A) Negative 04/01/2017 2:40 AM EDT [facility] Leuk Esterase, UA Negative Negative 04/01/2017 2:40 AM EDT [facility] Nitrite, UA Negative Negative 04/01/2017 2:40 AM EDT [facility] Urobilinogen, UA 0.2 E.U./dL 0.2 - 1.0 E.U./dL 04/01/2017 2:40 AM EDT [facility] Urine Urine specimen collection, clean catch / Unknown Collection / Unknown 04/01/2017 2:25 AM EDT 04/01/2017 2:28 AM EDT us Mickey Cerda MD URINE ORDERABLES Final Resu lt Performing Organization Address City/[facility]/ZIP Co de Phone Number [facility]
[address] [place] [address], [place] [phone] * hCG, Serum, Qualitative (04/01/2017 1:26 AM EDT) HCG Qualitative Negative Negative 7 2:09 AM EDT [facility] Blood Venipuncture / Unknown 04/01/2017 1:26 AM EDT 04/01/2017 1:31 AM EDT us Mickey Cerda MD LAB BLOOD ORDERABLES Final Result Performing Organization Address City/[facility]/ZIP Co de Phone Number [facility]
[address] [place] [address], [place] [phone] * (ABNORMAL) CBC Auto Differential (04/01/2017 1:25 AM EDT) WBC 8.79 4.80 - 10.80 10*3/mm3 04/01/2017 1:37 AM EDT [facility] RBC 4.26 4.20 - 5.40 10*6/mm3 04/01/2017 1:37 AM EDT [facility] Hemoglobin 12.7 12.0 - 16.0 g/dL 04/01/2017 1:37 AM [facility] Hematocrit 37.3 37.0 - 47.0 % 04/01/2017 1:37 AM [facility] MCV 87.6 81.0 - 99.0 fL 04/01/2017 1:37 AM [facility] MCH 29.8 27.0 - 31.0 pg 04/01/2017 1:37 AM [facility] MCHC 34.0 30.0 - 37.0 g/dL 04/01/2017 1:37 AM [facility] RDW 11.9 11.5 - 14.5 % 04/01/2017 1:37 AM [facility] RDW-SD 38.1 37.0 - 54.0 fl 04/01/2017 1:37 AM [facility] MPV 13.9(H) 6.0 - 12.0 fL 04/01/2017 1:37 AM [facility] Platelets 174 130 - 400 10*3/mm3 04/01/2017 1:37 AM [facility] Neutrophil % 54.0 37.0 - 80.0 % 04/01/2017 1:37 AM [facility] Lymphocyte % 36.4 10.0 - 50.0 % 04/01/2017 1:37 AM [facility] Monocyte % 6.1 0.0 - 12.0 % 04/01/2017 1:37 AM [facility] Eosinophil % 2.5 0.0 - 7.0 % 04/01/2017 1:37 AM [facility] Basophil % 0.5 0.0 - 2.5 % 04/01/2017 1:37 AM [facility] Immature Grans % 0.5 0.0 - 0.6 % 04/01/2017 1:37 AM [facility] Neutrophils, Absolute 4.75 2.00 - 6.90 10*3/mm3 04/01/2017 1:37 AM [facility] Lymphocytes, Absolute 3.20 0.60 - 3.40 10*3/mm3 04/01/2017 1:37 AM EDT [facility] Monocytes, Absolute 0.54 0.00 - 0.90 10*3/mm3 04/01/2017 1:37 AM EDT [facility] Eosinophils, Absolute 0.22 0.00 - 0.70 10*3/mm3 04/01/2017 1:37 AM EDT [facility] Basophils, Absolute 0.04 0.00 - 0.20 10*3/mm3 04/01/2017 1:37 AM EDT [facility] Immature Grans, Absolute 0.04 0.00 - 0.06 10*3/mm3 04/01/2017 1:37 AM EDT [facility] nRBC 0.0 0.0 - 0.0 /100 WBC 04/01/2017 1:37 AM EDT [facility] Blood Venipuncture / Unknown 04/01/2017 1:25 AM EDT 04/01/2017 1:31 AM EDT Mickey Cerda MD LAB BLOOD ORDERABLES Final Result [facility]
[address] [place] [address], * (ABNORMAL) Comprehensive Metabolic Panel (04/01/2017 1:25 AM EDT) Glucose 499(HH) 74 - 98 mg/dL 04/01/2017 1:57 AM EDT [facility] Comment:Glucose >180, Hemogl obin A1C recommended. BUN 13 7 - 20 mg/dL 04/01/2017 1:57 AM T [facility] Comment:Specimen hemolyzed. Results may be affected. Creatinine 1.40(H) 0.60 - 1.30 mg/dL 04/01/2017 1:57 AM EDT [facility] Sodium 131(L) 137 - 145 mmol/L 04/01/2017 1:57 AM EDT [facility] Potassium 4.4 3.5 - 5.1 mmol/L 04/01/2017 1:57 AM [facility] Comment:Specimen hemolyzed. Results may be affected. Chloride 100 98 - 107 mmol/L 04/01/2017 1:57 AM [facility] CO2 22.0(L) 26.0 - 30.0 mmol/L 04/01/2017 1:57 AM [facility] Calcium 9.0 8.4 - 10.2 mg/dL 04/01/2017 1:57 AM [facility] Total Protein 6.9 6.3 - 8.2 g/dL 04/01/2017 1:57 AM [facility] Albumin 3.90 3.50 - 5.00 g/dL 04/01/2017 1:57 AM [facility] ALT (SGPT) 29 13 - 69 U/L 04/01/2017 1:57 AM [facility] Comment:Specimen hemolyzed. Results may be affected. AST (SGOT) 19 15 - 46 U/L 04/01/2017 1:57 AM [facility] Comment:Specimen hemolyzed. Results may be affected. Alkaline Phosphatase 77 38 - 126 U/L 04/01/2017 1:57 AM [facility] Comment:Specimen hemolyzed. Results may be affected. Total Bilirubin 0.5 0.2 - 1.3 mg/dL 04/01/2017 1:57 AM [facility] eGFR Non Amer 45(L) >60 mL/min/1.7 3 04/01/2017 1:57 AM [facility] Globulin 3.0 gm/dL 04/01/2017 1:57 AM [facility] A/G Ratio 1.3 1.0 - 2.0 g/dL 04/01/2017 1:57 AM [facility] BUN/Creatinine Ratio 9.3 7.1 - 23.5 04/01/2017 1:57 AM [facility] Anion Gap 13.4 mmol/L 04/01/2017 1:57 AM [facility] Blood Venipuncture / Unknown 04/01/2017 1:25 AM EDT 04/01/2017 1:31 AM EDT Narrative [facility] - 04/01/2017 1:57 AM EDT Abnormal [...] BLOOD ORDERABLES Final Result Performing Organization Address City/[facility] Co de Phone Number [facility]
[address] [place] [address], * (ABNORMAL) POC Glucose Fingerstick (04/01/2017 1:20 AM EDT) Glucose 513(HH) 70 - 130 mg/dL 04/01/2017 1:25 AM EDT [facility] Comment:Serial Number: [id number] Blood 04/01/2017 1:20 AM EDT 04/01/2017 1:25 AM EDT No Known Provider POINT OF CARE TEST ORDERABLES Final Result Performing Organization Address [facility] Co de Phone Number [facility]
[address] [place] [address], [place] [phone] documented in this encounter Visit Diagnoses Diagnosis [...] RN) documented in this encounter Care Teams Executive Business Coach Relationship Specialty Start Date End Date Jaquan Conley MD [address] [place] [address] PCP - General 01/25/17 09/21/17 documented as of this encounter
--- OUTSIDE RECORDS SUMMARY | 2024-06-04 08:02 | XMS_ITS | Encounter Summary ---
Author Organization [facility] Address [address] [place] [address] Care Team Providers Care Chefs Name Role Phone Jaquan Conley MD Primary Care Provider [phone] Reason for Visit * (Routine) - Closed Specialty Diagnoses / Procedures Referred By Contac t Referred To Contact Radiology Diagnoses Acute bilateral thoracic back pain Procedures XR Spine Thoracic 3 View Jaquan Conley MD [address] [place] [address] Phone: tel: fax: Referral ID Status Reason Start Date Expiration Date Visits Re quested Visits Authorized [id number] Closed 01/25/2017 01/25/2018 1 1 Encounter Details Date Type Department Care Team (Latest Contact Info) Description 01/25/2017 6:15 PM EDT - 01/25/2017 11:59 PM EDT Hospital Encounter [facility] XRAY [address] [place] [address] Jaquan Conley MD [address] [place] [phone] Discharge Disposition: Home or Self Care Social [...] on filedocumented in this encounter Care Teams Chefs Relationship Specialty Start Date End Date Jaquan Conley MD [address] [place] [address] PCP - General 01/25/17 09/21/17 documented as of this encounter
--- OUTSIDE RECORDS SUMMARY | 2024-06-04 08:02 | XMS_ITS | Encounter Summary ---
Author Organization [facility] Address [address] [place] [address] Care Team Providers Care Ink Maker Name Role Phone Jaquan Conley MD Primary Care Provider [phone] Reason for Visit * Reason Comments Initial Evaluation * Physical Therapy (Routine) - Closed Specialty Diagnoses / Procedures Referred By Contac t Referred To Contact Physical Therapy Diagnoses Flat back syndrome Low back pain, unspecified back pain laterality, unspecified chronicity, with sciatica presence unspecified Orthopedic aftercare Long Valles MD [address] [place] [address] Phone: tel: fax: Chad Rivera, PT [address] [place] [address] Phone: tel: Referral ID Status Reason Start Date Expiration Date V isits Requested Visits Authorized [id number] Closed Specialty Services Required 03/14/2017 03/14/2018 50 50 Encounter Details Date Type Department Care Team (Late st Contact Info) Description 03/14/2017 4:30 PM EDT Treatment [facility] [address] [place] [address] Chad Rivera, PT [address] [facility] [address] [place] [address] Acute bilateral low back pain [...] is so high. Severe diabetic. 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 Pain Current pain ratin At best [...] planes to improved stability of the core/trunk FDC GOALS: 6 weeks 1. Pt to demonstrate [...] interventions: cryotherapy, thermotherapy (hydrocollator packs) and electrical stimulation/Cymraes stimulation Planned therapy interventions: abdominal trunk stabilization, manual therapy, spinal/joint mobilization, soft tissue mobilization, strengthening, stretching, therapeutic activities, functional ROM exercises, flexibility, body mechanics training, neuromuscular re-education and postural training Treatment plan discussed with: patient Plan details: Pt will be seen 1 x / week. Assess Pt response to PREP, posture and body mechanics. Manual Therapy: mins [id number]; Therapeutic Exercise: mins 90345; Neuromuscular Hair: mins 53757; Therapeutic Activity: 10 nc mins 81038; Gait Training: mins 13466; Ultrasound: mins 39341; Electrical Stimulation: mins 37373 ( [id number]); Dry Needling mins self-pay Timed [...] return via fax to .. Thank you, [facility]. documented in this encounter Plan of Treatment Not on file documented as of this encounter Visit Diagnoses Diagnosis Acute bilateral low back pain with bilateral sciatica- Primary documented in this encounter Care Teams Ink Maker Relationship Specialty Start Date End Date Jaquan Conley MD [address] [place], [place] [id number] PCP - General 01/25/17 09/21/17 documented as of this encounter
--- OUTSIDE RECORDS SUMMARY | 2024-06-04 08:02 | XMS_ITS | Encounter Summary ---
Author Organization [facility] Address [address] [place] [address] Care Team Providers Care Ammunition And Explosives Handler Name Role Phone Lauren Slade ANJU Primary Care Provider [phone] Reason for Visit * Reason Comments Hyperglycemia Chest Pain Encounter Details Date Type Department Care Team (Late st Contact Info) Description 01/31/2018 2:08 PM EDT - 01/31/2018 5:54 PM EDT Emergency [facility] EMERGENC[facility] DEPARTMENT [address] [place] [id number] Mickey Cerda MD [address] [place] [address] Hyperglycemia without ketosis (Primary Dx); [...] Care Everywhere. * Blood Glucose Monitoring Adult (British) * Hyperglycemia (British) * Glomerular Filtration Rate (British) * Nonspecific Chest Pain Unom-dc-Myck (British) documented in this encounter Medications at Time [...] as soon as she is finished. Ladan Young RN 01/31/18 0236 * Ladan Young RN - 01/31/2018 3:02 PM EDT Brandon Crowder PA-C notified of B/P of 153/94. Changed order for Clonidine. Ladan Young RN 01/31/18 1526 * Ladan Young RN - 01/31/2018 2:55 PM EDT Patient unable to void at this time. Ladan Young RN 01/31/18 4485 * Vinny Crowder PA-C - 01/31/2018 2:06 [...] hyperlipidemia, and diabetes. History provided by: Patient material distributor used: No Chest Pain Pain location: Substernal [...] no aortic disease Hyperglycemia Blood sugar level STITCHER HAND: 600 Severity: Moderate Onset quality: Sudden Duration: [...] For this patient encounter, I reviewed the SYSTEM ARCHITECT or PA documentation, treatment plan, and medical [...] - 0.034 ng/mL 01/31/2018 5:41 PM EDT [facility] Blood Left upper arm structure / Unknown Venipuncture / Unknown 01/31/2018 5:08 PM EDT 01/31/2018 5:12 PM EDT Narrative [facility] - 01/31/2018 5:41 PM EDT Normal Patient Upper Reference Limit (URL) (99th Percentile)=0.03 ng/mL Non-AMI Illness Reference Limit=0.03-0.11 ng/mL AMI Confirmation=0.12 ng/mL and above Vinny Crowder PA-C LAB BLOOD ORDERABLES Fi nal Result Performing Organization Address City/[facility] Co de Phone Number [facility]
[address] [place] [address], * (ABNORMAL) POC Glucose Once (01/31/2018 4:38 PM EDT) Glucose 357(H) 70 - 130 mg/dL 02/01/2018 9:55 AM EDT [facility] Comment:Serial Number: [id number] Blood 01/31/2018 4:38 PM EDT 02/01/2018 9:55 AM EDT Mickey Cerda MD POINT OF CARE TEST ORDERABL ES Final Result Performing Organization Address [facility] Co de Phone Number [facility]
[address] [place] [address], * XR Chest 2 View (01/31/2018 3:20 [...] None Seen /HPF 01/31/2018 3:36 PM EDT [facility] WBC, UA 0-2(A) None Seen /HPF 01/31/2018 3:36 PM EDT [facility] Bacteria, UA Trace(A) None Seen /HPF 01/31/2018 3:36 PM EDT [facility] Squamous Epithelial Cells, UA 0-2 None Seen, 0-2 /HPF 01/31/2018 3:36 PM EDT [facility] Hyaline Casts, UA None Seen None Seen /LPF 01/31/2018 3:36 PM EDT [facility] Methodology Manual Light Microscopy 01/31/2018 3:36 PM EDT [facility] Urine Urine specimen collection, clean catch / Unknown Collection / Unknown 01/31/2018 3:20 PM EDT 01/31/2018 3:22 PM EDT us Vinny Crowder PA-C URINE ORDERABLES Final Result [facility]
[address] [place] [address], [place] [phone] * (ABNORMAL) Urinalysis With Microscopic If Indicated (No Culture) - Urine, Clean Catch (01/31/2018 3:20 PM EDT) Color, UA Yellow Yellow, Straw 01/31/2018 3:31 PM EDT [facility] Appearance, UA Clear Clear 01/31/2018 3:31 PM EDT [facility] pH, UA 6.0 5.0 - 8.0 01/31/2018 3:31 PM EDT [facility] Specific [place], UA 1.020 1.005 - 1.030 01/31/2018 3:31 PM EDT [facility] Glucose, UA 500 mg/dL (2+)(A) Negative 01/31/2018 3:31 PM EDT [facility] Ketones, UA Negative Negative 01/31/2018 3:31 PM EDT [facility] Bilirubin, UA Negative Negative 01/31/2018 3:31 PM EDT [facility] Blood, UA Trace(A) Negative 01/31/2018 3:31 PM EDT [facility] Protein, UA >=300 mg/dL (3+)(A) Negative 01/31/2018 3:31 PM EDT [facility] Leuk Esterase, UA Negative Negative 01/31/2018 3:31 PM EDT [facility] Nitrite, UA Negative Negative 01/31/2018 3:31 PM EDT [facility] Urobilinogen, UA 0.2 E.U./dL 0.2 - 1.0 E.U./dL 01/31/2018 3:31 PM EDT [facility] Urine Urine specimen collection, clean catch / Unknown Collection / Unknown 01/31/2018 3:20 PM EDT 01/31/2018 3:22 PM EDT Vniny Crowder PA-C URINE ORDERABLES Final Result [facility]
[address] [place] [id number], * Urine Drug Screen - Urine, Clean Catch (01/31/2018 3:20 PM EDT) THC, Screen, Urine Negative Negative 2017 3:36 PM EDT [facility] Phencyclidine (PCP), Urine Negative Negative 01/31/2018 3:36 PM EDT [facility] Cocaine Screen, Urine Negative Negative 01/31/2018 3:36 PM EDT [facility] Methamphetamine, Ur Negative Negative 01/31 3:36 PM EDT [facility] Opiate Screen Negative Negative 01/31/2018 3:36 PM EDT [facility] Amphetamine Screen, Urine Negative Negative 01/31/2018 3:36 PM EDT [facility] Benzodiazepine Screen, Urine Negative Negative 01/31/2018 3:36 PM EDT [facility] Tricyclic Antidepressants Screen Negative Negative 01/31/2018 3:36 PM EDT [facility] Methadone Screen, Urine Negative Negative 01/31/2018 3:36 PM EDT [facility] Barbiturates Screen, Urine Negative Negative 01/31/2018 3:36 PM EDT [facility] Oxycodone Screen, Urine Negative Negative 01/31/2018 3:36 PM EDT [facility] Propoxyphene Screen Negative Negative 01/31 3:36 PM EDT [facility] Buprenorphine, Screen, Urine Negative Negative 01/31/2018 3:36 PM T [facility] Urine Urine specimen collection, clean catch / Unknown Collection / Unknown 01/31/2018 3:20 PM EDT 01/31/2018 3:22 PM EDT Narrative [facility] - 01/31/2018 3:36 PM EDT Limitations of this procedure include the possibility of false positives due to interfering substances in the urine sample. Clinical data should be correlated with any questionable result. Positive results should be considered Presumptive Positive until results are confirmed with another methodology such as HPLC or GCMS. Vinny Crowder PA-C URINE ORDERABLES Final Result [facility]
[address] [place] [address], [place] [phone] * (ABNORMAL) Blood Gas, Arterial With Co-Ox (01/31/2018 2:41 PM EDT) Site Left Radial 01/31/2018 2:41 PM EDT [facility] THERAP[facility] Kamari's Test Positive 01/31/2018 2:41 PM EDT [facility] THER[facility] pH, Arterial 7.365 7.300 - 7.500 pH units 01/31/2018 2:41 PM EDT [facility] THERAPY pCO2, Arterial 32.5(L) 35.0 - 45.0 mm Hg 01/31/2018 2:41 PM EDT [facility] THERAPY pO2, Arterial 99.6 75.0 - 100.0 mm Hg 01/31/2018 2:41 PM EDT [facility] THERAPY HCO3, Arterial 18.6(L) 22.0 - 28.0 mmol/L 01/31/2018 2:41 PM EDT [facility] THERAPY Base Excess, Arterial -6.0(L) 0.0 - 2.0 mmol/L 01/31/2018 2:41 PM EDT [facility] THERAP[facility] O2 Saturation, Arterial 98.1 94.0 - 100.0 % 01/31/2018 2:41 PM EDT [facility] THERAPY Hemoglobin, Blood Gas 10.8(L) 12 - 18 g/dL 01/31/2018 2:41 PM EDT [facility] THER[facility] Hematocrit, Blood Gas 33.2 % 01/31/2018 2:41 PM EDT [facility] THERAP[facility] Oxyhemoglobin 93.7(L) 94 - 99 % 01/31/2018 2:41 PM EDT [facility] THERAP[facility] Methemoglobin 1.40 0.00 - 1.50 % 01/31/2018 2:41 PM EDT [facility] THERAP[facility] Carboxyhemoglobin 3.1(H) 0 - 2 % 018 2:41 PM EDT [facility] THERAP[facility] Barometric Pressure for Blood Gas 733 mmHg 01/31/2018 2:41 PM EDT [facility] THERAPY Modality N/A 01/31/2018 2:41 PM EDT [facility] THERAPY FIO2 21 % 01/31/2018 2:41 PM EDT [facility] THERAPY Ventilator Mode NA 8 2:41 PM EDT [facility] THERAP[facility] Collected by db 01/31/2018 2:41 PM EDT [facility] THERAPY pH, Temp Corrected pH Units 2017 2:41 PM EDT [facility] THERAPY pCO2, Temperature Corrected 35 - 45 mm Hg 01/31/2018 2:41 PM EDT [facility] THERAPY pO2, Temperature Corrected 83 - 108 mm Hg 01/31/2018 2:41 PM EDT [facility] THERAPY Arterial Blood 01/31/2018 2: 41 PM EDT 01/31/2018 2:41 PM EDT Mickey Cerda MD LAB BLOOD ORDERABLES Final Result [facility] THERAPY
[address] [place] [address], * Lipase (01/31/2018 2:15 PM EDT) Lipase 99 23 - 300 U/L 01/31/2018 2:49 PM EDT [facility] Blood Venipuncture / Unknown 01/31/2018 2:15 PM EDT 01/31/2018 2:22 PM EDT Vinny Crowder PA-C LAB BLOOD ORDERABLES Fi nal Result [facility]
[address] [phone] * (ABNORMAL) Comprehensive Metabolic Panel (01/31/2018 2:15 PM EDT) Glucose 469(HH) 74 - 98 mg/dL 01/31/2018 2:51 PM T [facility] Comment:Glucose >180, Hemogl obin A1C recommended. BUN 19 7 - 20 mg/dL 01/31/2018 2:51 PM T [facility] Comment:Specimen hemolyzed. Results may be affected. Creatinine 1.60(H) 0.60 - 1.30 mg/dL 01/31/2018 2:51 PM T [facility] Sodium 133(L) 137 - 145 mmol/L 01/31/2018 2:51 PM EDT [facility] Potassium 5.4(H) 3.5 - 5.1 mmol/L 01/31/2018 2:51 PM T [facility] Comment:Specimen hemolyzed. Results may be affected. Chloride 106 98 - 107 mmol/L 01/31/2018 2:51 PM [facility] CO2 22.0(L) 26.0 - 30.0 mmol/L 01/31/2018 2:51 PM [facility] Calcium 8.6 8.4 - 10.2 mg/dL 01/31/2018 2:51 PM [facility] Total Protein 6.1(L) 6.3 - 8.2 g/dL 01/31/2018 2:51 PM [facility] Albumin 3.30(L) 3.50 - 5.00 g/dL 01/31/2018 2:51 PM [facility] ALT (SGPT) 19 13 - 69 U/L 01/31/2018 2:51 PM T [facility] Comment:Specimen hemolyzed. Results may be affected. AST (SGOT) 14(L) 15 - 46 U/L 01/31/2018 2:51 PM T [facility] Comment:Specimen hemolyzed. Results may be affected. Alkaline Phosphatase 77 38 - 126 U/L 01/31/2018 2:51 PM T [facility] Comment:Specimen hemolyzed. Results may be affected. Total Bilirubin 0.3 0.2 - 1.3 mg/dL 01/31/2018 2:51 PM EDT [facility] eGFR Non Amer 38(L) >60 mL/min/1.7 3 01/31/2018 2:51 PM EDT [facility] Globulin 2.8 gm/dL 01/31/2018 2:51 PM EDT [facility] A/G Ratio 1.2 1.0 - 2.0 g/dL 01/31/2018 2:51 PM EDT [facility] BUN/Creatinine Ratio 11.9 7.1 - 23.5 01/31/2018 2:51 PM EDT [facility] Anion Gap 10.4 10.0 - 20.0 mmol/L 01/31/2018 2:51 PM EDT [facility] Blood Venipuncture / Unknown 01/31/2018 2:15 PM EDT 01/31/2018 2:22 PM EDT Narrative [facility] - 01/31/2018 2:51 PM EDT GFR Normal >60 Chronic Kidney Disease <60 Kidney Failure <15 Vinny Crowder PA-C LAB BLOOD ORDERABLES Fi nal Result [facility]
[address] [place] [id number], * (ABNORMAL) CBC Auto Differential (01/31/2018 2:15 PM EDT) WBC 7.72 4.80 - 10.80 10*3/mm3 01/31/2018 2:26 PM EDT [facility] RBC 3.87(L) 4.20 - 5.40 10*6/mm3 01/31/2018 2:26 PM EDT [facility] Hemoglobin 11.3(L) 12.0 - 16.0 g/dL 01/31/2018 2:26 PM EDT [facility] Hematocrit 34.2(L) 37.0 - 47.0 % 01/31/2018 2:26 PM EDT [facility] MCV 88.4 81.0 - 99.0 fL 01/31/2018 2:26 PM EDT [facility] MCH 29.2 27.0 - 31.0 pg 01/31/2018 2:26 PM EDT [facility] MCHC 33.0 30.0 - 37.0 g/dL 01/31/2018 2:26 PM EDT [facility] RDW 11.8 11.5 - 14.5 % 01/31/2018 2:26 PM EDT [facility] RDW-SD 37.5 37.0 - 54.0 fl 01/31/2018 2:26 PM EDT [facility] MPV 13.0(H) 6.0 - 12.0 fL 01/31/2018 2:26 PM EDT [facility] Platelets 195 130 - 400 10*3/mm3 01/31/2018 2:26 PM EDT [facility] Neutrophil % 50.3 37.0 - 80.0 % 01/31/2018 2:26 PM EDT [facility] Lymphocyte % 41.7 10.0 - 50.0 % 01/31/2018 2:26 PM EDT [facility] Monocyte % 4.0 0.0 - 12.0 % 01/31/2018 2:26 PM EDT [facility] Eosinophil % 3.1 0.0 - 7.0 % 01/31/2018 2:26 PM EDT [facility] Basophil % 0.4 0.0 - 2.5 % 01/31/2018 2:26 PM EDT [facility] Immature Grans % 0.5 0.0 - 0.6 % 01/31/2018 2:26 PM EDT [facility] Neutrophils, Absolute 3.88 2.00 - 6.90 10*3/mm3 01/31/2018 2:26 PM EDT [facility] Lymphocytes, Absolute 3.22 0.60 - 3.40 10*3/mm3 01/31/2018 2:26 PM EDT [facility] Monocytes, Absolute 0.31 0.00 - 0.90 10*3/mm3 01/31/2018 2:26 PM EDT [facility] Eosinophils, Absolute 0.24 0.00 - 0.70 10*3/mm3 01/31/2018 2:26 PM EDT [facility] Basophils, Absolute 0.03 0.00 - 0.20 10*3/mm3 01/31/2018 2:26 PM EDT [facility] Immature Grans, Absolute 0.04 0.00 - 0.06 10*3/mm3 01/31/2018 2:26 PM EDT [facility] nRBC 0.0 0.0 - 0.0 /100 WBC 01/31/2018 2:26 PM EDT [facility] Blood Venipuncture / Unknown 01/31/2018 2:15 PM EDT 01/31/2018 2:22 PM EDT Vinny MENDEZ-Todd LAB BLOOD ORDERABLES Fi nal Result [facility]
[address] [place] [address], * aPTT (01/31/2018 2:15 PM EDT) PTT 25.2 25.0 - 36.0 seconds 01/31/2018 2:46 PM EDT [facility] Blood Venipuncture / Unknown 01/31/2018 2:15 PM EDT 01/31/2018 2:22 PM EDT Vinny MENDEZ-Todd LAB BLOOD ORDERABLES Fi nal Result [facility]
[address] [place] [address], [place] [phone] * Protime-INR (01/31/2018 2:15 PM EDT) Protime 10.4 9.3 - 12.1 Seconds 01/31/2018 2:46 PM EDT [facility] INR 0.93 0.90 - 1.10 01/31/2018 2:46 PM EDT [facility] Blood Venipuncture / Unknown 01/31/2018 2:15 PM EDT 01/31/2018 2:22 PM EDT Vinny MENDEZ-C LAB BLOOD ORDERABLES Fi nal Result [facility]
[address] [place] [address], [place] [phone] * D-dimer, Quantitative (01/31/2018 2:15 PM EDT) D-Dimer, Quantitative 287 0 - 500 ng/mL (FEU) 01/31/2018 3:07 PM EDT [facility] Blood Venipuncture / Unknown 01/31/2018 2:15 PM EDT 01/31/2018 2:22 PM EDT Vinny MENDEZ-C LAB BLOOD ORDERABLES Fi nal Result Performing Organization Address [facility]/ZIP Co de Phone Number [facility]
[address] [place] [address], [place] [phone] * Troponin (01/31/2018 2:15 PM EDT) Pathologist [facility] Troponin I <0.012 0.000 - 0.034 ng/mL 01/31/2018 2:49 PM EDT [facility] Blood Venipuncture / Unknown 01/31/2018 2:15 PM EDT 01/31/2018 2:22 PM EDT Narrative [facility] - 01/31/2018 2:49 PM EDT Normal Patient Upper Reference Limit (URL) (99th Percentile)=0.03 ng/mL Non-AMI Illness Reference Limit=0.03-0.11 ng/mL AMI Confirmation=0.12 ng/mL and above Vinny MENDEZ-C LAB BLOOD ORDERABLES Fi nal Result [facility]
[address] [place] [id number], * Lactic Acid, Plasma (01/31/2018 2:15 PM EDT) Lactate 1.4 0.5 - 2.0 mmol/L 01/31/2018 2:37 PM EDT [facility] Blood Venipuncture / Unknown 01/31/2018 2:15 PM EDT 01/31/2018 2:22 PM EDT Vinny Crowder PA-C LAB BLOOD ORDERABLES Fi nal Result [facility]
[address] [place] [address], * (ABNORMAL) POC Glucose Once (01/31/2018 2:06 PM EDT) Glucose 515(HH) 70 - 130 mg/dL 02/01/2018 9:55 AM EDT [facility] Comment:Serial Number: [id number] Blood 01/31/2018 2:06 PM EDT 02/01/2018 9:55 AM EDT Mickey Cerda MD POINT OF CARE TEST ORDERABL ES Final Result [facility]
[address] [place] [address], documented in this encounter Visit Diagnoses Diagnosis [...] 1408 documented in this encounter Care Teams Ammunition And Explosives Handler Relationship Specialty Start Date End Date Lauren Slade APRN [facility] [place] [address] PCP - General Family Medicine 09/22/17 02/05/18 documented as of this encounter
--- OUTSIDE RECORDS SUMMARY | 2024-06-04 08:02 | XMS_ITS | Encounter Summary ---
Author Organization [facility] Address [address] [place] [address] Care Team Providers Care Flexo Press Operator Name Role Phone Jaquan Conley MD Primary Care Provider + [phone] Encounter Details Date Type Department Care Team (Late st Contact Info) Description 01/27[facility]2024 [facility] [address] [place] [address] Marilyn Valencia L, REHABILITATION SUPERVISOR [address] [facility] [address] [place] [address] Social History Tobacco Use Types [...] [facility] [address], [address] [place] [address] Erica Ventura PA [address] [place] [address] documented as of this encounter Visit Diagnoses Not on filedocumented in this encounter Additional Health Concerns Assessment Noted Time A fall risk assessment has been complete d for the patient 06/20/2023 12:51 PM EST A Body Mass Index follow-up plan has been documented for the patient 01/27/2024 1:29 PM EDT documented as of this encounter Care Teams Flexo Press Operator Relationship Specialty Start Date End Date Jaquan Conley MD [address] [place] [address] PCP - General 11/28/20 documented as of this encounter
--- OUTSIDE RECORDS SUMMARY | 2024-06-04 08:03 | XMS_ITS | Encounter Summary ---
Author Organization [facility] Address [address] [place] [address] Care Team Providers Care Photo Manager Name Role Phone Jaquan Conley MD Primary Care Provider + [phone] Reason for Visit * Reason Comments Diabetes type1 Encounter Details Date Type Department Care Team (Late st Contact Info) Description 05/13/2022 1:20 PM EDT [facility] Visit [facility] [address] [place] [address] Erica Ventura PA [address] [place] [address] Type 1 diabetes mellitus with [...] education team with any questions or concerns [phone] * Progress Notes - Erica Valdivia PA [...] that she is on transplant list at [facility] and awaiting kidney. Cardiovascular risk factors: diabetes [...] of care. Electronically signed by: ANDREA Kumari [facility] [address] [address] [place]. 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 (CMS/HCC) documented in this encounter Results * POCT glycosylated hemoglobin (Hb A1C) docked device (05/13/2022 1:07 PM EDT) POCT Hemoglobin A1C 4.8 4.4-6.6 % % [facility] Kit Lot Number na [facility] Kit Expiration Date na [facility] Blood Venous blood specimen / Unknown 05/13/2022 1:07 PM EDT Erica MENDEZ POINT OF CARE TEST EN TER/EDIT ORDERABLES Final Result Performing Organization Address City/State/[facility] Co de Phone Number [facility] [address] [place] [address] documented in this encounter Visit Diagnoses Diagnosis [...] documented as of this encounter Care Teams Photo Manager Relationship Specialty Start Date End Date Jaquan Conley MD [address] [place] [address] PCP - General 11/28/20 documented as of this encounter
--- OUTSIDE RECORDS SUMMARY | 2024-06-04 08:03 | XMS_ITS | Encounter Summary ---
Author Organization Healthcare Address [address] [place] [address] Care Team Providers Care Offset Press Operator Apprentice Name Role Phone Jaquan Conley MD Primary Care Provider + [phone] Encounter Details Date Type Department Care Team [...] 11:00 AM EST [facility] [address], [address] [place] [address] Erica Ventura PA [address] [place] [address] documented as of this encounter Visit Diagnoses Not on filedocumented in this encounter Additional Health Concerns Assessment Noted Time A fall risk assessment has been complete d for the patient 12/21/2021 12:59 PM EDT documented as of this encounter Care Teams Offset Press Operator Apprentice Relationship Specialty Start Date End Date Jaquan Conley MD [address] [place], [place] [id number] PCP - General 11/28/20 documented as of this encounter
--- OUTSIDE RECORDS SUMMARY | 2024-06-04 08:03 | XMS_ITS | Encounter Summary ---
Author Organization [facility] Address [address] [place] [address] Care Team Providers Care Supervisor Network Control Operators Name Role Phone Jaquan Conley MD Primary Care Provider + [phone] Encounter Details Date Type Department Care Team (Late st Contact Info) Description 07/30/2020 [facility] Encounter [facility] Endocrinology [address] [facility], [address] [place] [address] Provider, MD Laury [address] [place] [address] Social History Tobacco Use Types Packs/Day [...] Visit [facility] Endocrinology [address] [facility], [address] [place] [address] Erica Ventura PA [address] [facility] [address] [place] [address] documented as of this encounter Procedures Procedure Name Priority Date/Time Associated Diagnosis Comments POCT GLYCOSYLATED HEMOGLOBIN (HGB A1C) Routine 11/26/2020 1:12 PM EDT POCT GLYCOSYLATED HEMOGLOBIN (HGB A1C) Routine 07/30/2020 1:12 PM EST POCT GLYCOSYLATED HEMOGLOBIN (HGB A1C) Routine 04/28/2020 4:06 PM EDT documented in this encounter Results * WILLARD Hemoglobin A1C (11/26/2020 1:12 PM EDT) POCT Hemoglobin A1C 6.1 [facility] 11/26/2020 1:12 PM EDT Narrative [facility] - 11/26/2020 1:12 PM EDT Resulting Agency - AEHR POC [[facility] [place]] us Historical Provider MD POINT OF CARE TEST ENTER/ EDIT ORDERABLES Final Result Performing Organization Address City/[facility]/ZIP Co de Phone Number [facility] [address] [place] [address], [place] * [place] Hemoglobin A1C (07/30/2020 1:12 PM EST) POCT Hemoglobin A1C 5.0 [facility] 07/30/2020 1:12 PM EST Narrative [facility] - 07/30/2020 1:12 PM EST Resulting Agency - AEHR POC [[facility] [place]] us Historical Provider MD POINT OF CARE TEST ENTER/ EDIT ORDERABLES Final Result [facility] [address] [place] [address] [address] [place] [address], [place] * [place] Hemoglobin A1C (04/28/2020 4:06 PM EDT) POCT Hemoglobin A1C 5.4 [facility] 04/28/2020 4:06 PM EDT Narrative [facility] [place] - 04/28/2020 4:06 PM EDT Resulting Agency - AEHR POC [[facility] [place]] us Historical Provider POINT OF CARE TEST ENTER/ EDIT ORDERABLES Final Result [facility] [place] [address] [facility] [address] ADULT [address] documented in this encounter Visit Diagnoses Not on filedocumented in this encounter Care Teams Supervisor Network Control Operators Relationship Specialty Start Date End Date Jaquan Conley MD [address] [place] [address] PCP - General 11/28/20 documented as of this encounter
--- OUTSIDE RECORDS SUMMARY | 2024-06-04 08:03 | XMS_ITS | Encounter Summary ---
Author Organization [facility] Address [address] [place] [address] Care Team Providers Care Open Hearth Stockyard Supervisor Name Role Phone Jaquan Conley MD Primary Care Provider + [phone] Encounter Details Date Type Department Care Team [...] Description 08/28/2024 11:00 AM EST Office Visit [facility] [place] [facility] Endocrinology [address] , [address] [place] [address] Erica Ventura PA [address] [place] [address] documented as of this encounter Visit Diagnoses Not on filedocumented in this encounter Care Teams Open Hearth Stockyard Supervisor Relationship Specialty Start Date End Date Jaquan Conley MD [address] [place], [place] [phone] PCP - General 11/28/20 documented as of this encounter
--- OUTSIDE RECORDS SUMMARY | 2024-06-04 08:03 | XMS_ITS | Encounter Summary ---
Author Organization [facility] Address [address] [place] [address] Care Team Providers Care Concaver Name Role Phone Jaquan Conley MD Primary Care Provider + [phone] Reason for Visit * Reason Comments Med Refill Encounter Details Date Type Department Care Team (Late st Contact Info) Description 08/08/2021 Refill [facility] Diabetes Education [address] , [address] [place] [address] Ivy Whaley MD [address] [address] Type 1 diabetes mellitus with [...] Description 08/28/2024 11:00 AM EST Office Visit [facility] Endocrinology [address], [address] [place] [address] Erica Ventura PA [address] [place] [address] documented as of this encounter Visit Diagnoses Diagnosis Type 1 diabetes mellitus with mild nonproliferative retinopathy without macular edema, unspecified laterality (CMS/[facility]) documented in this encounter Care Teams Concaver Relationship Specialty Start Date End Date Jaquan Conley MD [address] [place] [address] PCP - General 11/28/20 documented as of this encounter
--- OUTSIDE RECORDS SUMMARY | 2024-06-04 08:03 | XMS_ITS ---
Author Organization [facility] Address [address] [place] [address] Care Team Providers Care Detective And Intelligence Analyst Name Role Phone Jaquan Conley MD Primary Care Provider + [phone] Transplant Episode Kidney Candidate [facility] ([place], [place]) [facility] Evaluation began on 08/17/2018 Marked as Ineligible on 11/10/2018 Reason: Candidate Workup Incomplete Kidney CoordinatorHilaria Hsu RN Phone: N/A Fax: N/A Email: N/A Scores Score Value Updated Exceptions/Reas ons CPRA Not available EPTS (Calc) 16 06/04/2024 Care Team Name Role Phone Fax Email Hilaria Hsu RN Kidney Coordinator N/A N/A N/A Crys Gilman Comb Fixer N/A N/A N/A Mukul Stevens MD Referring Physician N/A N/A N/A Events Pre-Transplant Referred: 07/24/2018 Evaluation began: 08/17/2018
--- OUTSIDE RECORDS SUMMARY | 2024-06-04 08:03 | XMS_ITS | Encounter Summary ---
Author Organization [facility] Address [address] [place] [address] Care Team Providers Care Grey Percher Name Role Phone Jaquan Conley MD Primary Care Provider + [phone] Encounter Details Date Type Department Care Team [...] [facility] [address], [address] [place] [address] Erica Ventura PA [address] [place] [address] documented as of this encounter Visit Diagnoses Not on filedocumented in this encounter Additional Health Concerns Assessment Noted Time A fall risk assessment has been complete d for the patient 09/13/2022 1:03 PM EST A Body Mass Index follow-up plan has been documented for the patient 09/13/2022 1:44 PM EST documented as of this encounter Care Teams Grey Percher Relationship Specialty Start Date End Date Jaquan Conley MD [address] [place] [address] PCP - General 11/28/20 documented as of this encounter
--- OUTSIDE RECORDS SUMMARY | 2024-06-04 08:03 | XMS_ITS | Encounter Summary ---
Author Organization [facility] Address [address] [place] [address] Care Team Providers Care Records Management Clerk Name Role Phone Jaquan Conley MD Primary Care Provider + [phone] Encounter Details Date Type Department Care Team (Late st Contact Info) Description 09/11/2021 11:00 AM EST Office Visit [facility] [place] Endocrinology [address], [address] [place] [address] Erica Izquierdo S, HEAD TENNIS COACH [address] [place] [address] Type 1 diabetes mellitus with [...] Notes * Progress Notes - Erica Izquierdo, HEAD TENNIS COACH - 09/11/2021 11:00 AM EST Subjective Crystal [...] Patient confirms they are physically located in [place]? Yes If the patient is not physically located in [place], the provider has confirmed with Legal thatthe [...] care. Electronically signed by: Erica Izquierdo APRN [facility] [address] [address] [place]. [address] PHONE [phone] FAX: [phone] documented in this encounter Plan of Treatment Upcoming Encounters Date Type Department Care Team (Late st Contact Info) Description 08/28/2024 11:00 AM EST Office Visit [facility] [place] Endocrinology [address], [address] [place] [address] Erica Ventura, PA [address] [facility] [address] [place] [address] documented as of this encounter Visit Diagnoses [...] (CMS/HCC) documented in this encounter Care Teams Records Management Clerk Relationship Specialty Start Date End Date Jaquan Conley MD [address] [place] [address] PCP - General 11/28/20 documented as of this encounter
--- OUTSIDE RECORDS SUMMARY | 2024-06-04 08:03 | XMS_ITS | Encounter Summary ---
Author Organization [facility] Address [address] [place] [id number] Care Team Providers Care Epic Radiant Analyst Name Role Phone Jaquan Conley MD Primary Care Provider + [phone] Reason for Visit * Reason Comments Med Refill Encounter Details Date Type Department Care Team (Late Contact Info) Description 07/05/2021 Refill [facility] Diabetes Education [address], [address] [place] [address] Ulises Tran RN [address] [address] Type 1 diabetes mellitus with [...] Description 08/28/2024 11:00 AM EST Office Visit [facility] Endocrinology [address], [address] [place] [address] Erica Ventura PA [address] [place] [address] documented as of this encounter Visit Diagnoses Diagnosis 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
--- OUTSIDE RECORDS SUMMARY | 2024-06-04 08:03 | XMS_ITS | Encounter Summary ---
Author Organization [facility] Address [address] [place] [address] Care Team Providers Care Tunnel Drier Operator Name Role Phone Jaquan Conley MD Primary Care Provider + [phone] Encounter Details Date Type Department Care Team [...] 11:00 AM EST Office Visit [facility] End[facility]ology [address], [address] [place] [address] Erica Ventura PA [address] [place] [address] documented as of this encounter Visit Diagnoses Not on filedocumented in this encounter Additional Health Concerns Assessment Noted Time A fall risk assessment has been complete d for the patient 12/21/2021 12:59 PM EDT documented as of this encounter Care Teams Tunnel Drier Operator Relationship Specialty Start Date End Date Jaquan Conley MD [address] [place], [place] [phone] PCP - General 11/28/20 documented as of this encounter
--- OUTSIDE RECORDS SUMMARY | 2024-06-04 08:03 | XMS_ITS | Encounter Summary ---
Author Organization [facility] Address [address] [place] [address] Care Team Providers Care Weight Guesser Name Role Phone Jaquan Conley MD Primary Care Provider + [phone] Encounter Details Date Type Department Care Team [...] 08/28/2024 11:00 AM EST Office Visit [facility] [address], [address] [place] [address] Erica Ventura PA [address] [place] [address] documented as of this encounter Visit Diagnoses Not on filedocumented in this encounter Additional Health Concerns Assessment Noted Time A fall risk assessment has been complete d for the patient 06/20/2023 12:51 PM EST A Body Mass Index follow-up plan has been documented for the patient 01/27/2024 1:29 PM EDT documented as of this encounter Care Teams Weight Guesser Relationship Specialty Start Date End Date Jaquan Conley MD [address] [place], [place] [id number] PCP - General 11/28/20 documented as of this encounter
--- OUTSIDE RECORDS SUMMARY | 2024-06-04 08:03 | XMS_ITS | Encounter Summary ---
Author Organization [facility] Address [address] [place] [address] Care Team Providers Care Quality Associate Name Role Phone Jaquan Conley MD Primary Care Provider + [phone] Reason for Visit * Reason Onset Date Comments HCN - Patient Message 09/25/2021 Encounter Details Date Type Department Care Team (Late st Contact Info) Description 09/25/2021 Telephone [facility] Endocrinology [address] [facility], [address] [place] [address] Pearl Gilman, LAWN SPRINKLER INSTALLER [address] [facility] [address] [place] [address] HCN - Patient Message Social [...] orders and the A1C for patient to: [address] [place] [address] Best contact number and optimal time of day to reach caller: [phone] (leave msg w/sister; Daisy Shaffer or in-law [...] Description 08/28/2024 11:00 AM EST Office Visit [facility] Endocrinology [address] [facility], [address] [place] [address] Erica Ventura PA [address] [facility] [address] [place] [address] documented as of this encounter Visit Diagnoses Not on filedocumented in this encounter Care Teams Quality Associate Relationship Specialty Start Date End Date Jaquan Conley MD [address] [place] [address] PCP - General 11/28/20 documented as of this encounter
--- OUTSIDE RECORDS SUMMARY | 2024-06-04 08:03 | XMS_ITS | Encounter Summary ---
Author Organization [facility] Address [address] [place] [address] Care Team Providers Care Sewage Disposal Engineer Name Role Phone Jaquan Conley MD Primary Care Provider + [phone] Encounter Details Date Type Department Care Team [...] 08/28/2024 11:00 AM EST Office Visit [facility] [address], [address] [place] [address] Erica Ventura PA [address] [place] [address] documented as of this encounter Visit Diagnoses Not on filedocumented in this encounter Additional Health Concerns Assessment Noted Time A fall risk assessment has been complete d for the patient 06/20/2023 12:51 PM EST A Body Mass Index follow-up plan has been documented for the patient 06/20/2023 2:00 PM EST documented as of this encounter Care Teams Sewage Disposal Engineer Relationship Specialty Start Date End Date Jaquan Conley MD [address] [place], [place] [phone] PCP - General 11/28/20 documented as of this encounter
--- OUTSIDE RECORDS SUMMARY | 2024-06-04 08:03 | XMS_ITS | Encounter Summary ---
Author Organization [facility] Address [address] [place] [address] Care Team Providers Care Studio Data Analyst Name Role Phone Jaquan Conley MD Primary Care Provider + [phone] Encounter Details Date Type Department Care Team [...] Description 08/28/2024 11:00 AM EST Office Visit [facility] Endocrinology [address] [place] [address] Erica Ventura PA [address] [place] [address] documented as of this encounter Visit Diagnoses Not on filedocumented in this encounter Additional Health Concerns Assessment Noted Time A fall risk assessment has been complete d for the patient 12/16/2022 12:47 PM EDT A Body Mass Index follow-up plan has been documented for the patient 12/16/2022 1:35 PM EDT documented as of this encounter Care Teams Studio Data Analyst Relationship Specialty Start Date End Date Jaquan Conley MD [address] [place] [address] PCP - General 11/28/20 documented as of this encounter
--- OUTSIDE RECORDS SUMMARY | 2024-06-04 08:03 | XMS_ITS | Encounter Summary ---
Author Organization [facility] Address [address] [place] [address] Care Team Providers Care Well Head Pumper Name Role Phone Jaquan Conley MD Primary Care Provider + [phone] Encounter Details Date Type Department Care Team (Late st Contact Info) Description 11/17/2022 Orders Only [facility] [address] [facility], [address] [place] [address] Mesha Patton RN [address] [facility] [address] [place] [address] Type 1 diabetes mellitus with [...] Description 08/28/2024 11:00 AM EST Office Visit [facility] Endocrinology [address], [address] [place] [address] Erica Ventura PA [address] [place] [address] documented as of this encounter [...] the two equations, please see laboratory website: ??[email or web address] Blood Venous blood specimen / Unknown Venipuncture / Unknown 12/16/2022 1:40 PM EDT 12/16/2022 3:27 PM EDT Erica MENDEZ LAB BLOOD ORDERABLES Final Result Performing Organization Address [facility] de Phone Number [facility] [address] [place] [address] * (ABNORMAL) C-peptide (12/16/2022 1:40 PM EDT) [facility] Signature C Peptide 10.43(H) 0.81 - 5.30 ng/mL 12/16/2022 7:17 PM EDT [facility] Comment:To be drawn concurre ntly with basic metabolic pane Blood Venous blood specimen / Unknown Venipuncture / Unknown 12/16/2022 1:40 PM EDT 12/16/2022 3:27 PM EDT Erica MENDEZ LAB BLOOD ORDERABLES Final Result Performing Organization Address [facility] de Phone Number [facility] [address] [place] [address] documented in this encounter Visit Diagnoses Diagnosis 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
--- OUTSIDE RECORDS SUMMARY | 2024-06-04 08:03 | XMS_ITS | Encounter Summary ---
Author Organization [facility] Address [address] [place] [address] Care Team Providers Care Client Reporting Associate Name Role Phone Jaquan Conley MD Primary Care Provider + [phone] Reason for Visit * Reason Comments Med Refill Encounter Details Date Type Department Care Team (Late st Contact Info) Description 04/26/2021 Refill [facility] Endocrinology [address], [address] [place] [address] Julisa Morales, WELT CUTTER [address] [facility] [address] [place] [address] Type 1 diabetes mellitus without [...] Description 08/28/2024 11:00 AM EST [facility] End[facility]ology [address], [address] [place] [address] Erica Ventura, PA [address] [facility] [address] [place] [address] documented as of this encounter Visit Diagnoses Diagnosis Type 1 diabetes mellitus without complication (CMS/HCC)- Primary Type I (juvenile type) diabetes mellitus without mention of complication, not stated as uncontrolled documented in this encounter Care Teams Client Reporting Associate Relationship Specialty Start Date End Date Jaquan Conley MD [address] [place] [phone] PCP - General 11/28/20 documented as of this encounter
--- OUTSIDE RECORDS SUMMARY | 2024-06-04 08:03 | XMS_ITS | Encounter Summary ---
Author Organization [facility] Address [address] [place] [id number] Care Team Providers Care Chalk Extruding Machine Operator Name Role Phone Jaquan Conley MD Primary Care Provider + [phone] Reason for Visit * Reason Onset Date Comments Med Refill 07/26/2022 Encounter Details Date Type Department Care Team (Late st Contact Info) Description 07/26/2022 Refill [facility] Diabetes Education [address] [place] [address] Erica Ventura PA [address] [facility] [address] [place] [address] Type 1 diabetes mellitus with [...] EST Received PA request from [facility] in [place] for lantus. Last rx for lantus was [facility] [place]. Updated med list and switched to levemir per [place] medicaid formulary change. 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
--- OUTSIDE RECORDS SUMMARY | 2024-06-04 08:03 | XMS_ITS | Encounter Summary ---
Author Organization [facility] Address [address] [place] [address] Care Team Providers Care Cart Pusher Name Role Phone Jaquan Conley MD Primary Care Provider + [phone] Reason for Visit * Reason Comments Follow-up Type 1 DM Encounter Details Date Type Department Care Team (Late st Contact Info) Description 12/21/2021 12:40 PM EDT Office Visit [facility] Endocrinology [address], [address] [place] [address] Pearl Gilman, DIRECTOR OF MEDICAL REVIEW [address] [facility] [address] [place] [address] Type 1 diabetes mellitus with [...] that she is on transplant list at [facility] and awaiting kidney. Today A1c: 5.5% Current [...] When did you have labs last?: December [facility] nephrology The following portions of the chart [...] care. Electronically signed by: Pearl Gilman APRN [facility] ENDOCRINOLOGY [address] [place]. [address] PHONE [phone] FAX: [phone] documented in this encounter Plan of Treatment Upcoming Encounters Date Type Department Care Team (Late st Contact Info) Description 08/28/2024 11:00 AM EST Office Visit [facility] Endocrinology [address], [address] [place] [address] Erica Ventura PA [address] [place] [address] documented as of this encounter [...] POCT Hemoglobin A1C 5.5 4.4-6.6 % % [facility] Kit Lot Number n/[id number] [facility] Honestly.comCARE LAB Kit Expiration Date n/a [facility] Blood Venous blood specimen / Unknown 12/21/2021 1:03 PM EDT us Pearl Brooks Mukul DIRECTOR OF MEDICAL REVIEW POINT OF CARE TEST ENTER/RANDY T ORDERABLES Final Result [facility] [address] [place] [address] documented in this encounter Visit Diagnoses Diagnosis 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 (CMS/[facility])- Primary Hyperlipidemia, unspecified hyperlipidemia type Essential hypertension Unspecified essential hypertension Chronic kidney disease, stage IV (severe) (CMS/HCC) Chronic kidney disease, Stage IV (severe) documented in this encounter Additional Health Concerns Assessment Noted Time A fall risk assessment has been complete d for the patient 12/21/2021 12:59 PM EDT documented as of this encounter Care Teams Cart Pusher Relationship Specialty Start Date End Date Jaquan Conley MD [address] [place] [address] PCP - General 11/28/20 documented as of this encounter
--- OUTSIDE RECORDS SUMMARY | 2024-06-04 08:03 | XMS_ITS | Encounter Summary ---
Author Organization [facility] Address [address] [place] [address] Care Team Providers Care Logging Contractor Name Role Phone Jaquan Conley MD Primary Care Provider + [phone] Encounter Details Date Type Department Care Team (Late st Contact Info) Description 06/20/2023 1:20 PM EST Office Visit [facility] Endocrinology [address], [address] [place] [address] Erica Ventura PA [address] [place] [address] Type 1 diabetes mellitus with [...] received Dexcom through DME with Medicare,now on [place] medicaid, Dexcom G7 prescription sent today, reviewed [...] of care. Electronically signed by: ANDREA Kumari [facility] ENDOCRINOLOGY [address] [facility] [place]. [address] PHONE [phone] FAX: [phone] documented in this encounter Plan of Treatment Upcoming Encounters Date Type Department Care Team (Late st Contact Info) Description 08/28/2024 11:00 AM EST Office Visit [facility] Endocrinology [address] [facility], [address] [place] [address] Erica Ventura PA [address] [facility] [address] [place] [address] documented as of this encounter Procedures Procedure Name Priority Date/Time Associated Diagnosis Comments POCT GLYCOSYLATED HEMOGLOBIN (HGB A1C) Routine 06/20/2023 12:56 PM EST Type 1 diabetes mellitus with other specified complication (CMS/HCC) documented in this encounter Results * POCT glycosylated hemoglobin (Hb A1C) docked device (06/20/2023 12:56 PM EST) POCT Hemoglobin A1C 5.1 <5.7% Non-Diabet ic [facility] Kit Lot Number [id number] [facility] Kit Expiration Date 02/14/25 [facility] Blood Venous blood specimen / Unknown 06/20/2023 12:56 PM EST us Erica MENDEZ POINT OF CARE TEST EN TER/EDIT ORDERABLES Final Result [facility] [address] [place] [address] documented in this encounter Visit Diagnoses Diagnosis [...] documented as of this encounter Care Teams Logging Contractor Relationship Specialty Start Date End Date Jaquan Conley MD [address] [place] [address] PCP - General 11/28/20 documented as of this encounter
--- OUTSIDE RECORDS SUMMARY | 2024-06-04 08:03 | XMS_ITS | Encounter Summary ---
Author Organization [facility] Address [address] [place] [address] Care Team Providers Care Commodity Loan Clerk Name Role Phone Jaquan Conley MD Primary Care Provider + [phone] Reason for Visit * Reason Comments Diabetes Encounter Details Date Type Department Care Team (Late st Contact Info) Description 09/13/2022 1:20 PM EST [facility] [address] [place] [address] Erica Ventura PA [address] [place] [address] Type 1 diabetes mellitus with [...] 05/08 from 5.5% 12/2021 -Evaluation today with [facility] general surgery for peritoneal dialysis catheter, will follow [facility], laparoscopic placement scheduled with Dr. Cb Renee for 09/23 at [facility] -At last office visit reduced all basal [...] is not on renal transplant list at [facility] as she is not currently in dialysis [...] of care. Electronically signed by: ANDREA Kumari [facility] ENDOCRINOLOGY [address] [place]. [address] PHONE [phone] FAX: [phone] documented in this encounter Plan of Treatment Upcoming Encounters Date Type Department Care Team (Late st Contact Info) Description 08/28/2024 11:00 AM EST Office Visit [facility] [address] [place] [address] Erica Ventura PA [address] [place] [address] documented as of this encounter Procedures Procedure Name Priority Date/Time Associated Diagnosis Comments POCT GLYCOSYLATED HEMOGLOBIN (HGB A1C) Routine 09/13/2022 1:08 PM EST Type 1 diabetes mellitus with other specified complication (CMS/HCC) documented in this encounter Results * POCT glycosylated hemoglobin (Hb A1C) docked device (09/13/2022 1:08 PM EST) POCT Hemoglobin A1C 5.1 4.4-6.6 % % [facility] Kit Lot Number n/a [facility] Kit Expiration Date n/a [facility] Blood Venous blood specimen / Unknown 09/13/2022 1:08 PM EST Erica MENDEZ POINT OF CARE TEST EN TER/EDIT ORDERABLES Final Result Performing Organization Address City/State/[facility] Co de Phone Number [facility] [address] [place] [address] documented in this encounter Visit Diagnoses Diagnosis [...] documented as of this encounter Care Teams Commodity Loan Clerk Relationship Specialty Start Date End Date Jaquan Conley MD [address] [place] [address] PCP - General 11/28/20 documented as of this encounter
--- OUTSIDE RECORDS SUMMARY | 2024-06-04 08:03 | XMS_ITS | Encounter Summary ---
Author Organization [facility] Address [address] [place] [address] Care Team Providers Care Payable Processor Name Role Phone Jaquan Conley MD Primary Care Provider + [phone] Reason for Visit * Reason Comments Med Refill Encounter Details Date Type Department Care Team (Late st Contact Info) Description 04/04/2021 [facility] [address], [address] [place] [address] Ulises Tran RN [address] [place] [address] Type 1 diabetes mellitus with [...] Description 08/28/2024 11:00 AM EST [facility] End[facility]ology [address], [address] [place] [address] Erica Ventura PA [address] [place] [address] documented as of this encounter Visit Diagnoses Diagnosis 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
--- OUTSIDE RECORDS SUMMARY | 2024-06-04 08:03 | XMS_ITS | Encounter Summary ---
Author Organization [facility] Address [address] [place] [address] Care Team Providers Care Digital Manager Name Role Phone Jaquan Conley MD Primary Care Provider + [phone] Encounter Details Date Type Department Care Team (Late st Contact Info) Description 10/18/2018 [facility] HISTORICAL OTTR [address] [place] [address] Yris Schwarz, RN CH-TRANSPLANT ADMINISTRATION Social History [...] in nephrology clinic note that she left [facility] after admission for increasing creatinine and e. coli UTI, consider starting with social work. She also initially stated didn't want to pursue kidney transplant if she couldn't get a pancreas at same time. * Progress Notes - Hilaria Hsu - 08/16/2018 9:25 AM EST Start eval with ; pt left [facility] per [facility] records. Pt has been 5 times; has 2 children, one of which is in [place] with her latest . documented in this encounter Plan of Treatment Upcoming Encounters Date Type Department Care Team (Late st Contact Info) Description 08/28/2024 11:00 AM EST Office Visit [facility] Endocrinology [address], [address] [place] [address] Erica Ventura PA [address] [place] [address] documented as of this encounter Visit Diagnoses Not on filedocumented in this encounter Care Teams Digital Manager Relationship Specialty Start Date End Date Jaquan Conley MD [address] [place], [place] [id number] PCP - General 11/28/20 documented as of this encounter
--- OUTSIDE RECORDS SUMMARY | 2024-06-04 08:03 | XMS_ITS | Encounter Summary ---
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 Sending to clinic for review via [employer] upload. Medication: Dexcom G7 sensor/quality control chemist ANDREA , [id number] Additional Info: Need clinical justification (legally blind, vision impairment where they can't seethe numbers, product has a feature that is not available on any preferred products) why the member can't use a preferred product (Dexcom G6, FreeStyle Nestor 3 * Telephone Encounter - Sebastien Doty - 06/22/2023 9:44 AM EST Prior authorization initiated by [employer]. Update will be provided when a determination has been received. Medication: Dexcom G7 quality control chemist/sensors ANDREA Submission Method: CMM Case Number/CMM [place]: [id number], [id number] * Telephone Encounter - Nisha Yeboah [...] AM EST Office Visit [facility] Endocrinology [address], [address] [place] [address] Erica Ventura PA [address] [place] [address] documented as of this encounter Visit Diagnoses Not on filedocumented in this encounter Additional Health Concerns Assessment Noted Time A fall risk assessment has been complete d for the patient 06/20/2023 12:51 PM EST A Body Mass Index follow-up plan has been documented for the patient 06/20/2023 2:00 PM EST documented as of this encounter Care Teams Mold Checker Relationship Specialty Start Date End Date Jaquan Conley MD [address] [place] [address] PCP - General 11/28/20 documented as of this encounter
--- OUTSIDE RECORDS SUMMARY | 2024-06-04 08:03 | XMS_ITS | Encounter Summary ---
Author Organization [facility] Address [address] [id number] Care Team Providers Care Instructor Of Nursing Name Role Phone Jaquan Conley MD Primary Care Provider + [phone] Encounter Details Date Type Department Care Team (Late st Contact Info) Description 11/17/2022 [facility] [address] [place] [address] Erica Ventura PA [address] [facility] [address] [place] [address] Social History Tobacco Use Types [...] Pt state her address has change to: [address] [place] [address] [place] [address] Can you put this change in for [...] Description 08/28/2024 11:00 AM EST [facility] [address] , [address] [place] [address] Erica Ventura PA [address] [facility] [address] [place] [address] documented as of this encounter Visit Diagnoses Not on filedocumented in this encounter Additional Health Concerns Assessment Noted Time A fall risk assessment has been complete d for the patient 09/13/2022 1:03 PM EST A Body Mass Index follow-up plan has been documented for the patient 09/13/2022 1:44 PM EST documented as of this encounter Care Teams Instructor Of Nursing Relationship Specialty Start Date End Date Jaquan Conley MD [address] [place] [address] PCP - General 11/28/20 documented as of this encounter
--- OUTSIDE RECORDS SUMMARY | 2024-06-04 08:03 | XMS_ITS | Encounter Summary ---
Author Organization [facility] Address [address] [place] [address] Care Team Providers Care Groundskeeping Maintenance Name Role Phone Jaquan Conley MD Primary Care Provider + [phone] Reason for Visit * Reason Comments Diabetes Encounter Details Date Type Department Care Team (Late st Contact Info) Description 12/16/2022 12:40 PM EDT Office Visit [facility] Endocrin[facility] [address] [place] [address] Erica Ventura PA [address] [facility] [address] [place] [address] Hyperglycemia (Primary Dx); Nephropathy; Retinopathy; [...] education team with any questions or concerns [phone] * Progress Notes - Erica Valdivia PA [...] [address] peritoneal dialysis catheter, [facility] is healing okay, is making it difficult to find placement for both insertion and CGM sites -[facility] needs to repeat C-peptide today to obtain new insulin pump -She did complete an eye exam last month after a black floater started in her left eye, was recommended either injections or laser for bleeding, however patient declined due to past pain with this interventions, patient reached agreement with ophthalmology -She is now on [facility] renal transplant list since doing dialysis, [facility] is going to try to be [...] cons [x]Sensor home use []Pump class offerings []Ebth phenomena []Somogyi effect [] Alcohol related to [...] of care. Electronically signed by: ANDREA Kumari [facility] ENDOCRINOLOGY [address] [place] [address]. [address] [place]. [address] PHONE [phone] FAX: [phone] documented in this encounter Plan of Treatment Upcoming Encounters Date Type Department Care Team (Late st Contact Info) Description 08/28/2024 11:00 AM EST Office Visit [facility] Endocrinology [address] [place] [address], [address] [place] [address] [place] [address] [place] [address] [place] [address] documented as of this encounter Procedures Procedure Name Priority Date/Time Associated Diagnosis Comments POCT GLYCOSYLATED HEMOGLOBIN (HGB A1C) Routine 12/16/2022 12:52 PM EDT Hyperglycemia documented in this encounter Results * POCT glycosylated hemoglobin (Hb A1C) docked device (12/16/2022 12:52 PM EDT) POCT Hemoglobin A1C 5.3 4.4-6.6 % % [facility] Kit Lot Number [id number] [facility] Kit Expiration Date [address] [facility] Blood Venous blood specimen / Unknown 12/16/2022 12:52 PM EDT Erica MENDEZ POINT OF CARE TEST EN TER/EDIT ORDERABLES Final Result Performing Organization Address City/State/[facility] Co de Phone Number [facility] [address] [place] [address] documented in this encounter Visit Diagnoses Diagnosis [...] documented as of this encounter Care Teams Groundskeeping Maintenance Relationship Specialty Start Date End Date Jaquan Conley MD [address] [place] [address] PCP - General 11/28/20 documented as of this encounter
--- OUTSIDE RECORDS SUMMARY | 2024-06-04 08:03 | XMS_ITS | Encounter Summary ---
Author Organization [facility] Address [address] [id number] Care Team Providers Care Bottle Assembler Name Role Phone Jaquan Conley MD Primary Care Provider + [phone] Reason for Visit * Reason Onset Date Comments Med Refill 10/23/2021 Encounter Details Date Type Department Care Team (Late st Contact Info) Description 10/23/2021 Refill [facility] Diabetes Education [address] [facility], [address] [place] [address] Rosamaria Purcell, CDE, RD [address] [facility] [address] [place] [address] Type 1 diabetes mellitus with [...] 11:00 AM EST Office Visit [facility] Endocrinology [address], [address] [place] [address] Erica Ventura PA [address] [place] [address] documented as of this encounter Visit Diagnoses Diagnosis 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
--- OUTSIDE RECORDS SUMMARY | 2024-06-04 08:03 | XMS_ITS | Encounter Summary ---
Author Organization [facility] Address [address] [place] [address] Care Team Providers Care Corporate Travel Coordinator Name Role Phone Jaquan Conley MD Primary Care Provider + [phone] Encounter Details Date Type Department Care Team (Late st Contact Info) Description 11/10/2018 [facility] Encounter HISTORICAL OTTR [address] [place] [address] Yris Schwarz, RN CH-TRANSPLANT ADMINISTRATION Social History [...] . She stated she is going to [facility] because they told her she can continue [...] EDT SW received message from [facility] phytochemistry professor that the pt contacted her to cancel psych appt, as she has decided to pursue listing at [facility], instead of . Note to Coord. and Police [employer] for awareness. * Progress Notes - Indira Márquez - 11/09/2018 4:12 PM EDT Mailed 11/24/18 [facility] eval appt schedule w/ map to pt. * Progress Notes - Daisy Gaming - 11/08/2018 8:09 AM EDT Per [facility], pt has an appt with [facility] on 11/24/18 at 1:30 pm. Note [...] made between 9 and 12 due to child welfare counselor issues. Forwarding communication to . * Progress [...] However, pt is also considering going to [facility] since she was told they are less [...] @ 0830. Updated APM, SCM, OTTR, and [place]. Will call pt and mail updated ppw. [...] from pt asking for call back at [phone] to talk about a living donor. Called and spoke w/ pt. States she has several potential living donors and they have questions about the process, testing, and requirements. Informed pt that her potential living donors can call [phone] to discuss this and receive more info, [...] EST Office Visit [facility]in[facility] [address] [facility], [address] [place] [address] Erica Ventura PA [address] [place] [address] documented as of this encounter [...] on filedocumented in this encounter Care Teams Corporate Travel Coordinator Relationship Specialty Start Date End Date Jaquan Conley MD [address] [place] [address] PCP - General 11/28/20 documented as of this encounter
--- OUTSIDE RECORDS SUMMARY | 2024-06-04 08:03 | XMS_ITS | Encounter Summary ---
Author Organization [facility] Address [address] [place] [address] Care Team Providers Care Photographic Equipment Mechanic Name Role Phone Jaquan Conley MD Primary Care Provider + [phone] Encounter Details Date Type Department Care Team (Late st Contact Info) Description 06/27/2023 Telephone [facility]in[facility] [address] [facility], [address] [place] [address] Erica Ventura PA [address] [facility] [address] [place] [address] Social History Tobacco Use Types [...] optimal time of day to reach caller: [phone] Note: Please do not reply to this [...] Description 08/28/2024 11:00 AM EST Office Visit [facility] Endocrinology [address], [address] [place] [address] Erica Ventura PA [address] [facility] [address] [place] [address] documented as of this encounter Visit Diagnoses Not on filedocumented in this encounter Additional Health Concerns Assessment Noted Time A fall risk assessment has been complete d for the patient 06/20/2023 12:51 PM EST A Body Mass Index follow-up plan has been documented for the patient 06/20/2023 2:00 PM EST documented as of this encounter Care Teams Photographic Equipment Mechanic Relationship Specialty Start Date End Date Jaquan Conley MD [address] [place] [address] PCP - General 11/28/20 documented as of this encounter
--- OUTSIDE RECORDS SUMMARY | 2024-06-04 08:03 | XMS_ITS | Encounter Summary ---
Author Organization [facility] Address [address] [place] [address] Care Team Providers Care Customer Care Professional Name Role Phone Jaquan Conley MD Primary Care Provider + [phone] Encounter Details Date Type Department Care Team (Late st Contact Info) Description 01/26/2021 Orders Only [facility] Diabetes Education [address] [place] [address] Valentine Boggs, VIVIE, RD [address] [facility] [address] [place] [address] Social History Tobacco Use Types [...] [facility] End[facility]inology [address] [place] [address] Erica Ventura PA [address] [facility] [address] [place] [address] documented as of this encounter Visit Diagnoses Not on filedocumented in this encounter Care Teams Customer Care Professional Relationship Specialty Start Date End Date Jaquan Conley MD [address] [place], [place] [address] PCP - General 11/28/20 documented as of this encounter
--- OUTSIDE RECORDS SUMMARY | 2024-06-04 08:03 | XMS_ITS | Encounter Summary ---
Author Organization [facility] Address [address] [place] [address] Care Team Providers Care Drafter Assistant Name Role Phone Jaquan Conley MD Primary Care Provider + [phone] Encounter Details Date Type Department Care Team (Late st Contact Info) Description 08/31/2021 Telephone [facility] Endocrinology [address], [address] [place] [address] Susana Thao Social History Tobacco [...] Office Visit [facility] Endocrinology [address] , [address] [place] [address] Erica Ventura PA [address] [facility] [address] [place] [address] documented as of this encounter Visit Diagnoses Not on filedocumented in this encounter Care Teams Drafter Assistant Relationship Specialty Start Date End Date Jaquan Conley MD [address] [place] [address] PCP - General 11/28/20 documented as of this encounter
--- OUTSIDE RECORDS SUMMARY | 2024-06-04 08:03 | XMS_ITS | Encounter Summary ---
Author Organization [facility] Address [address] [place] [address] Care Team Providers Care Marketing Operations Intern Name Role Phone Jaquan Conley MD Primary Care Provider + [phone] Reason for Visit * Reason Onset Date Comments HCN - Patient Message 06/07/2023 Encounter Details Date Type Department Care Team (Late st Contact Info) Description 06/07/2023 Telephone [facility] [address] [place] [address] Khloe Elias, ANJU [address] [address] HCN - Patient Message Social [...] Clinical Concern/Question Reason for Call: Simran, with [facility] is requesting the most recent office notes on this pt. Best contact number: Other: [phone] Optimal time of day to reach caller: ANYTIME Additional comments/information from caller: None Note: Please do not reply to this message. Follow-up communication and further actions as a result of this message need to be communicated with the patient directly, if the patient is not active onMyChart. If the patient is active on MyChart, they will receive notification of the communication/outcome via [employer]. documented in this encounter Plan of Treatment Upcoming Encounters Date Type Department Care Team (Late st Contact Info) Description 08/28/2024 11:00 AM EST Office Visit [facility] Endocrinology [address] [facility], [address] [place] [address] Erica Ventura PA [address] [facility] [address] [place] [address] documented as of this encounter Visit Diagnoses Not on filedocumented in this encounter Additional Health Concerns Assessment Noted Time A fall risk assessment has been complete d for the patient 12/16/2022 12:47 PM EDT A Body Mass Index follow-up plan has been documented for the patient 12/16/2022 1:35 PM EDT documented as of this encounter Care Teams Marketing Operations Intern Relationship Specialty Start Date End Date Jaquan Conley MD [address] [place] [address] PCP - General 11/28/20 documented as of this encounter
--- OUTSIDE RECORDS SUMMARY | 2024-06-04 08:03 | XMS_ITS | Encounter Summary ---
Author Organization [facility] Address [address] [place] [address] Care Team Providers Care Solar Energy Installation Manager Name Role Phone Jaquan Conley MD Primary Care Provider + [phone] Encounter Details Date Type Department Care Team (Late st Contact Info) Description 08/13/2021 Telephone [facility] Endocrinology [address] [facility], [address] [place] [address] Erica Izquierdo, TRENCHING MACHINE OPERATOR [address] [address] Social History Tobacco Use Types [...] Description 08/28/2024 11:00 AM EST Office Visit [facility] Endocrinology [address], [address] [place] [address] Erica Ventura, PA [address] [facility] [address] [place] [address] documented as of this encounter Visit Diagnoses Diagnosis Type 1 diabetes mellitus with mild nonproliferative retinopathy without macular edema, unspecified laterality ([facility]) documented in this encounter Care Teams Solar Energy Installation Manager Relationship Specialty Start Date End Date Jaquan Conley MD [address] [place] [address] PCP - General 11/28/20 documented as of this encounter
--- OUTSIDE RECORDS SUMMARY | 2024-06-04 08:03 | XMS_ITS | Encounter Summary ---
Author Organization [facility] Address [address] [place] [address] Care Team Providers Care Asbestos Worker Helper Name Role Phone Unavailable Primary Care Provider Unavailabl e Encounter Details Date Type Department Care Team (Late Contact Info) Description 06/12/2018 [facility] Encounter HISTORICAL OPHTHALMOLOGY [address] [place] [address] Joey Anderson MD [address] [facility] [address] [place] [address] Social History Tobacco Use Types [...] [facility] [address] , [address] [place] [address] Erica Ventura PA [address] [place] [address] documented as of this encounter Visit Diagnoses Not on filedocumented in this encounter
--- OUTSIDE RECORDS SUMMARY | 2024-06-04 08:03 | XMS_ITS | Encounter Summary ---
Author Organization [facility] Address [address] [place] [address] Care Team Providers Care Right Of Way Man Name Role Phone Jaquan Conley MD Primary Care Provider + [phone] Encounter Details Date Type Department Care Team (Late st Contact Info) Description 01/27/2024 12:20 PM EDT Office Visit [facility] Endocrinology [address] , [address] [place] [address] Marilyn Valencia, MANIFEST CLERK [address] [facility] [address] [place] [address] Type 2 diabetes mellitus with other specified complication, with long-term current use of insulin ([facility]) (Primary Dx); Insulin pump titration; [...] Patient confirms they are physically located in [place]? Yes If the patient is not physically located in [place], the provider has confirmed with [facility] thatthe provider is authorized to provide services in patient's stated location? Yes Provider Location: [facility] facility Audio and video or audio only? Audio and video Total visit time: 48 minutes HPI - last OV 06/20/23 with JOHN Arango - since then she has had a kidney transplant on 12/03/23 at [facility]. No longer taking prednisone due torash, stopped [...] care. Electronically signed by: Marilyn Valencia APRN [facility] END[facility]CRINOLOGY [address] [address] [place]. [address] PHONE [phone] FAX: [phone] documented in this encounter Plan of Treatment Upcoming Encounters Date Type Department Care Team (Late st Contact Info) Description 08/28/2024 11:00 AM EST Office Visit [facility] Endocrinology [address] , [address] [place] [address] Erica Ventura PA [address] [facility] [place] [address] [place] [address] documented as of this encounter Visit Diagnoses Diagnosis Type 2 diabetes mellitus with other specified complication, with long-term current use of insulin ([facility])- Primary Insulin pump titration Fitting [...] documented as of this encounter Care Teams Right Of Way Man Relationship Specialty Start Date End Date Jaquan Conley MD [address] [place], [place] [id number] PCP - General 11/28/20 documented as of this encounter
[2024-06-04 08:14] LABS: Appearance,Urine CLEAR (Clear); Bilirubin,Urine Negative (Negative); Blood, Urine Negative (Negative); Color,Urine YELLOW (Yellow); Glucose,Urine (UA) Negative (Negative); Ketones,Urine Negative (Negative); Leukocyte Esterase,Urine Negative (Negative); Nitrate,Urine Negative (Negative); Protein,Urine Negative (Negative); Specific Gravity, Urine >= 1.030 (1.005-1.030); Urobilinogen,Urine 0.2 EU/dl (0.2)
[2024-06-04 08:16] LABS: Basophils % 0.4 % (0.1-2.0); Eosinophils % 0.8 % (0.1-12.0); Hematocrit 39.9 % (37.0-47.0); Hemoglobin 13.2 g/dL (12.2-16.2); Lymphocytes # 0.7 K/mm3 (0.7-4.5); Lymphocytes % 21.4 % (10-50); Mean Corpuscular HGB Conc 33.2 g/dL (31.8-35.4); Mean Corpuscular Hemoglobin 33.3 pg (27.0-31.2); Mean Corpuscular Volume 100.5 fl (81-99); Mean Platelet Volume 9.6 fl (7.4-10.4); Monocytes # 0.1 K/mm3 (0.1-1.0); Monocytes % 3.6 % (1.7-9.3); Neutrophils # 2.4 K/mm3 (1.8-7.8); Neutrophils % 73.8 % (37.0-80.0); Platelet Count 161 K/mm3 (142-424); Red Blood Count 3.97 M/mm3 (4.20-5.40); Red Cell Distribution Width 15.9 % (11.5-17.5); White Blood Count 3.2 K/mm3 (4.8-10.8)
[2024-06-04 08:23] LABS: Bacteria,Urine Trace /lpf; Creatinine,Urine Random 207 mg/dL (Not Estab.); Total Protein,Urine Random < 5.0 mg/dL (0.0-12.0)
[2024-06-04 08:39] LABS: Albumin Level 4.1 g/dl (3.5-5.0); Chloride 111 mmol/L (98-107); Potassium 5.3 mmoL/L (3.5-5.1); Sodium 140 mmol/L (136-145)
[2024-06-04 08:41] LABS: Alanine Aminotransferase 29 U/L (12-78); Alkaline Phosphatase 85 U/L (38-126); Anion Gap 14.3 mEq/L (5-15); Aspartate Amino Transferase 24 U/L (14-36); Bilirubin,Total 0.6 mg/dl (0.2-1.3); Blood Urea Nitrogen 13 mg/dl (7-17); Carbon Dioxide 20 mmol/L (22.0-30.0); Estimated Glomerular Filt Rate 82 ml/min (>60); GFR (African American) 99 ML/MIN (>60)
[2024-06-04 08:42] LABS: Albumin/Globulin Ratio 1.9 (1.1-1.8); Calcium 9.8 mg/dl (8.4-10.2); Chol/HDL Ratio 2.6 (1-3.5); Cholesterol 125 mg/dl (140-200); Globulin 2.2 g/dL (1.3-3.2); Glucose 142 mg/dl (74-100); HDL Cholesterol 49 mg/dl (40-60); Magnesium 1.3 mg/dl (1.6-2.3); Phosphorous 3.2 mg/dl (2.5-4.5); Total Protein,Serum 6.3 g/dl (6.3-8.2); Triglycerides 108 mg/dl (30-150); VLDL Cholesterol 22 mg/dL (0-40)
[2024-06-04 08:53] LABS: Direct LDL Cholesterol 55.65 mg/dL (100-129)
[2024-06-06 18:09] LABS: Tacrolimus (FK506), Blood 12.2 ng/mL (2.0-20.0)
[2024-06-07 14:14] LABS: BKV DNA, Quant PCR, Plasma Negative (Negative)
[2024-06-09 12:18] LABS: CMV Quant DNA PCR (Plasma) Negative (Negative)
== END 2024-06-04 23:59 | disposition home or self-care (01) ==
LOC: LAB 07:52
PROVIDERS: Visit Provider Nurse Practitioner Family
DX: Z94.0 Kidney transplant status (principal); Z01.89 Encounter for other specified special examinations; Z79.899 Other long term (current) drug therapy; E78.5 Hyperlipidemia, unspecified; E11.8 Type 2 diabetes mellitus with unspecified complications; I10 Essential (primary) hypertension
CPT/HCPCS: 36415; 80053; 80061; 80197; 81001; 82570; 83735; 84100; 84156; 85025; 87497; 87799

== ENCOUNTER 2024-06-11 08:08 | Outpatient (CLI) | payer MEDICAID, SELFPAY ==
--- OUTSIDE RECORDS SUMMARY | 2024-06-11 08:31 | XMS_ITS | Encounter Summary ---
Author Organization [facility] Address [address] [place] [address] Care Team Providers Care Supervisor Post Wave Name Role Phone Unavailable Primary Care Provider Unavailabl e Reason for Visit * Reason Comments Catheter problem Encounter Details Date Type Department Care Team (Late st Contact Info) Description 05/21/2023 9:49 PM EDT - 05/21/2023 11:44 PM EDT Emergency [facility] Emergency Department [address] [place] [address] [place] [address] Peritoneal dialysis catheter in place (HCC) (Primary [...] follow-up with your primary care provider and hot plate press operator. Please return to ER for new or [...] follow-up on Tuesday Amilcar Porter MD 05/21/23 9143 * Мария Treadwell PA-C - 05/21/2023 9:50 [...] CATHETER PLACEMENT),; Surgeon: Cb Renee MD; Location: [facility]; Service: General Surgery; Laterality: N/A; [place] [address] [...] 60 mL (15 g Oral Given 05/21/23 3709) Results for orders placed or performed during [...] UA Colorless Clarity, UA Clear Clear Specific [place], UA 1.008 1.005 - 1.030 pH, UA [...] primary care provider as well as the hot plate press operator managing her kidney dysfunction. We advised herto return to ER for any new or worsening symptoms. Assessment & Plan Clinical Impression Diagnosis Comment Added By Time Added Peritoneal dialysis catheter in place (HCC) Мария Treadwell PA-C 05/21/2023 11:12 PM Disposition Discharge [1] - 05/21/2023 11:11 PM New Prescriptions No medications on file Electronically Signed By Мария Treadwell PA-C 05/21/23 1973 Cosigned by Amilcar Porter MD at 05/22/2023 7:14 PM EST AND BEVERAGE INTERN * Rae Land RN - 05/21/2023 9:46 [...] None Seen /HPF 05/21/2023 10:50 PM EDT [facility] RBC, UA 0-2(A) None Seen /HPF 05/21/2023 10:50 PM EDT [facility] Bacteria, UA None Seen Trace, None Seen 05/21/2023 10:50 PM EDT [facility] SQUAMOUS EPITHELIAL 3-5(A) None Seen /HPF 05/21/2023 10:50 PM EDT [facility] Urine URINE SPECIMEN COLLECTION, CLEAN CATCH / Unknown 05/21/2023 10:35 PM EDT 05/21/2023 10:35 PM EDT us Мария Treadwell PA-C URINE ORDERABLES Final Result [facility] [address] [place] [address], [facility] [phone] * (ABNORMAL) Urinalysis, Reflex Microscopic and Culture If Indicated (05/21/2023 10:35 PM EDT) Color, UA Colorless 05/21/2023 10:50 PM EDT [facility] Clarity, UA Clear Clear 05/21/2023 10:50 PM EDT [facility] Specific [place], UA 1.008 1.005 - 1.030 05/21/2023 10:50 PM EDT [facility] pH, UA 7.0 6.0 - 8.0 05/21/2023 10:50 PM EDT [facility] Leukocytes, UA Negative Negative 05/21/2023 10:50 PM EDT [facility] Nitrite, UA Negative Negative 05/21/2023 10:50 PM EDT [facility] Protein, UA Trace(A) Negative 05/21/2023 10:50 PM EDT [facility] Glucose, UA Trace(A) Normal 05/21/2023 10:50 PM EDT [facility] Ketones, UA Negative Negative 05/21/2023 10:50 PM EDT [facility] Bilirubin, UA Negative Negative 05/21/2023 10:50 PM EDT [facility] Blood, UA Negative Negative 05/21/2023 10:50 PM EDT [facility] Urobilinogen, UA Normal Normal 05/21/2023 10:50 PM EDT [facility] Specimen Source Urine, Clean Catch 05/21/2023 10:50 PM EDT [facility] Urine URINE SPECIMEN COLLECTION, CLEAN CATCH / Unknown 05/21/2023 10:35 PM EDT 05/21/2023 10:35 PM EDT Мария Treadwell PA-C URINE ORDERABLES Final Result [facility] [address] [email or web address] [address] [phone] * Magnesium (05/21/2023 10:14 PM EDT) Magnesium 1.7 1.5 - 2.4 mg/dL 05/21/2023 10:38 PM EDT [facility] Blood Venipuncture / Unknown 05/21/2023 10:14 PM EDT 05/21/2023 10:14 PM EDT us Мария Treadwell PA-C LAB BLOOD ORDERABLES Final Re sult [facility] [address] [place] [address], [facility] [phone] * (ABNORMAL) Basic Metabolic Panel (05/21/2023 10:14 PM EDT) Sodium 141 136 - 146 meq/L 05/21/2023 10:39 PM EDT [facility] Potassium 5.5(H) 3.5 - 5.1 meq/L 05/21/2023 10:39 PM EDT [facility] Chloride 113(H) 102 - 112 meq/L 05/21/2023 10:39 PM EDT [facility] CO2 22 21 - 32 meq/L 05/21/2023 10:39 PM EDT [facility] Anion Gap 12 9 - 20 05/21/2023 10:39 PM EDT [facility] BUN 67(H) 7 - 22 mg/dL 05/21/2023 10:39 PM EDT [facility] Creatinine 8.24(HH) 0.55 - 1.02 mg/dL 05/21/2023 10:39 PM EDT [facility] BUN/Creatinine 8 8 - 20 05/21/2023 10:39 PM EDT [facility] Glucose 205(H) 74 - 106 mg/dL 05/21/2023 10:39 PM EDT [facility] Calcium 9.0 8.5 - 10.1 mg/dL 05/21/2023 10:39 PM EDT [facility] Osmolality Calc 306.6 10:39 PM EDT [facility] eGFR (mL/min/1.73m2) 6(L) >=60 mL/min/1.7 3m2 05/21/2023 10:39 PM EDT [facility] Comment:eGFR of <60 suggests chronic kidney disease if found over a 3 month period of time. eGFR <15 indicates renal failure. Blood Venipuncture / Unknown 05/21/2023 10:14 PM EDT 05/21/2023 10:14 PM EDT Мария Treadwell PA-C LAB BLOOD ORDERABLES Final Re sult [facility] [address] [place] [address], [facility] [phone] * (ABNORMAL) CBC with Auto Diff (05/21/2023 10:14 PM EDT) WBC 6.3 3.9 - 10.0 K/??L 05/21/2023 10:18 PM EDT [facility] RBC 2.86(L) 3.93 - 6.08 M/??L 05/21/2023 10:18 PM EDT [facility] Hemoglobin 9.1(L) 11.2 - 15.7 GM/DL 05/21/2023 10:18 PM EDT [facility] Hematocrit 27.7(L) 34.1 - 44.9 % 05/21/2023 10:18 PM EDT [facility] MCV 97(H) 79 - 95 fL 05/21/2023 10:18 PM EDT [facility] MCH 31.8 25.6 - 32.2 pg 05/21/2023 10:18 PM EDT [facility] MCHC 32.9 32.2 - 36.5 GM/DL 05/21/2023 10:18 PM EDT [facility] RDW 12.2 11.6 - 14.4 % 05/21/2023 10:18 PM EDT [facility] Platelets 122(L) 163 - 369 K/CU MM 05/21/2023 10:18 PM EDT [facility] MPV 12.2 9.4 - 12.4 fL 05/21/2023 10:18 PM EDT [facility] % Neutros 50 34 - 71 % 05/21/2023 10:18 PM EDT [facility] % Lymphs 39 19 - 53 % 05/21/2023 10:18 PM EDT [facility] % Monos 6 4 - 13 % 05/21/2023 10:18 PM EDT [facility] % Eos 4 1 - 7 % 05/21/2023 10:18 PM EDT [facility] % Baso 1 0 - 1 % 05/21/2023 10:18 PM EDT [facility] # Neutros 3.18 1.56 - 6.13 K/??L 05/21/2023 10:18 PM EDT [facility] # Lymphs 2.46 1.18 - 3.74 K/??L 05/21/2023 10:18 PM EDT [facility] # Monos 0.39 0.24 - 0.82 K/??L 05/21/2023 10:18 PM EDT [facility] # Eos 0.23 0.04 - 0.54 K/??L 05/21/2023 10:18 PM EDT [facility] # Baso 0.03 0.01 - 0.08 K/??L 05/21/2023 10:18 PM EDT [facility] Immature Granulocytes-Re lative 0.20 0.00 - 0.60 % 05/21/2023 10:18 PM EDT [facility] # IG 0.01 0.00 - 0.05 K/uL 05/21/2023 10:18 PM EDT [facility] Blood Venipuncture / Unknown 05/21/2023 10:14 PM EDT 05/21/2023 10:14 PM EDT Narrative [facility] - 05/21/2023 10:18 PM EDT When [...] Blast? Flag noted Atypical Lymph flag noted Мария Treadwell PA-C LAB BLOOD ORDERABLES Final Re sult [facility] [email or web address] [address] [phone] documented in this encounter Visit Diagnoses Diagnosis [...]
--- OUTSIDE RECORDS SUMMARY | 2024-06-11 08:31 | XMS_ITS | Encounter Summary ---
Author Organization [facility] Address [address] [place] [address] Care Team Providers Care Color Weigher Name Role Phone Unavailable Primary Care Provider [...] release of HIV test results or diagnoses. [id number] Health Encounter Details Date Type Department Care Team (Late st Contact Info) Description 09/08/2023 Chart Note [facility] Transplant at [address] [address] [place] [facility] Transplant Eval Authorization Social [...] Transplant Eval Authorization Organ:kidney Insurance Co:[employer]pan TREVINO [facility] [place] [employer]: Phone: Fax: Auth#:[id number] Travel/Lodging:n Dates of Service:09/07/23 to 03/05/24 Additional Info: Evaluation for Patient/donor can be done Cleared for eval Test at [facility] documented in this encounter Plan of Treatment Not on file documented as of this encounter Visit Diagnoses Not on filedocumented in this encounter
--- OUTSIDE RECORDS SUMMARY | 2024-06-11 08:31 | XMS_ITS | Encounter Summary ---
Author Organization [employer] Address [address] [place] [address] Care Team Providers Care Hand Grinder Name Role Phone Unavailable Primary Care Provider Unavailabl e Reason for Visit * Auth/Cert Specialty Diagnoses / Procedures Referred By Xochitl burt Referred To Contact Diagnoses Chronic kidney disease, stage IV (severe) (HCC) Chronic kidney disease, Procedures TX LAP INSERTION TUNNELED INTRAPERITONEAL CATHETER LAPAROSCOPY, WITH PERITONEAL DIALYSIS CATHETER INSERTION Cb Renee MD [address] [place] [address] Phone: tel: fax: Referral ID Status Reason Start Date Expiration Date Visits Re quested Visits Authorized [id number] 09/13/2022 1 1 Encounter Details Date Type Department Care Team (Late st Contact Info) Description 09/23/2022 6:29 AM EST - 09/23/2022 10:31 AM EST Hospital Encounter [facility] Operating Room [address] [phone] Cb Renee MD [address] [place] [address] Discharge Disposition: Home or Self Care Social [...] for 24 hours or while taking narcotics W MACHINE HAND * Attachments The following attachments cannot be sent through Care Everywhere. * General Anesthesia Adult Care After (Burmese) * Peritoneal Dialysis Catheter Placement Care After (Burmese) * Acetaminophen; Hydrocodone Capsules or Tablets (Burmese) documented in this encounter Medications at Time of Discharge atorvastatin (LIPITOR) 40 MG tablet Take 40 mg by mouth daily. calcium acetate 667 mg Tab Take by mouth. carvediloL (COREG) 25 MG tablet Take 25 mg by mouth 2 (two) times daily with breakfast and dinner. loratadine (CLARITIN) 10 mg tablet Take 10 mg by mouth daily. NIFEdipine (ADALAT CC) 60 MG 24 hr tablet Take 60 mg by mouth daily. sodium bicarbonate 650 MG tablet Take 1 tablet by mouth 4 (four) times daily. calcitrioL (ROCALTROL) 0.5 MCG capsule Take 0.5 mcg by mouth daily. insulin aspart U-100 (NovoLOG) 100 unit/mL (3 mL) InPn Inject subcutaneously 3 (three) times daily before meals. HYDROcodone-acet aminophen (NORCO 5-325) 5-325 mg per tablet Take 1 tablet by mouth every 6 (six) hours as needed for up to 4 days. Max Daily Amount: 4 tablets 15 tablet 09/23/2022 09/28/19 23 documented as of this encounter H&P Notes * Mare Monteror, RISK CONTROL CONSULTANT - 09/23/2022 8:00 AM EST HPI History [...] ??? POC-EGFR 09/23/2022 8 mL/min/1.73M2 Final ??? Computer Assembler 09/23/2022 [id number] Final ??? POC-Creatinine 09/23/2022 6.3 (A) 0.6 - 1.3 mg/dL Final No image results found. Assessment & Plan Renal failure DM Hyperparathyroidism Anemia HTN HLD Hyperkalemia Pt to proceed with surgery, DC home today. Electronically signed by: Mare Rodgers APRN, 09/23/2022 at 8:32 AM Cosigned by Cb Renee MD at 09/23/2022 2:25 PM EST W MACHINE HAND W MACHINE HAND Associated attestation - Cb Renee MD - 09/23/2022 1:25 PM SCREW MACHINE HAND Patient seen and examined by myself. [...] dialysis catheter on September 23, 2022 at [facility]. ?? Electronically signed by Annmarie Nowak CMA - 09/13/2022 - 10:14 AM EST ?? Patient?? Crystal Archer 32 year old female 1990 ?? [address] [facility] [place] [address] ?? [phone] (M) [phone] (H) Comm Pref: Recent Visits with You 09/13/2022 Office Visit More...?? Significant History/Details?? Smoking Former Smoker (Quit Date: ) Smokeless Tobacco Never Used Alcohol Not Currently Preferred Language Burmese Specialty Comments Edit Show all No comments regarding your specialty Family Comments Edit None Care Team and Communications?? No referring provider ?? No PCP set ?? No other patient care team members ?? Visit Treatment Team Relationship Cb Renee MD Surgeon ? Recipients of Automatic ADT Notifications for This Admission Show All Admissions No notifications found. Social Determinants of Health?? Find [employer] resources Imported [employer] Documents Created Type Source 04/11/2022 Continuity of Care Document?? [facility] ALLSCRIPTS 03/18/2022 Continuity of Care Document?? [facility] CERNER 03/17/2022 Continuity of Care Document?? [facility] CERANKITA Since Your Last Visit (Today)?? Sep 23 [...] Labs and Imaging No resulted procedures found. W MACHINE HAND documented in this encounter Miscellaneous Notes * Nursing Progress Notes - Yue Jacome RN - 09/23/2022 9:52 AM EST Pt has abd pad with binder W MACHINE HAND * Op Note - Cb Renee MD - 09/23/2022 9:18 AM EST DATE OF PROCEDURE: 09/23/2022 PREOPERATIVE DIAGNOSIS: Chronic kidney disease. POSTOPERATIVE DIAGNOSIS: Chronic kidney disease. PROCEDURE PERFORMED: Laparoscopic placement of peritoneal dialysis catheter. RUBBER ROLLER GRINDER: Wil Chawla. ANESTHESIA: General endotracheal. FINDINGS: The [...] was taken to Recovery in stable condition. /[id number] Cb Renee MD [facility] / [facility] /[id number] W MACHINE HAND documented in this encounter Plan of Treatment Not on file documented as of this encounter Procedures Procedure Name Priority Date/Time Associated Diagnosis Comments NOVA GLUCOSE POC Routine 09/23/2022 8:51 AM EST TX LAP INSERTION TUNNELED INTRAPERITONEAL CATHETER 09/23/2022 7:50 AM EST Chronic kidney disease, stage IV (severe) ([facility]) FS_MODEL_IP POCT , URINE Routine 09/23/2022 7:42 AM EST ISTAT GLUCOSE POC Routine 09/23/2022 7:3 9 AM EST POCT-CREATININE Routine 09/23/2022 7:39 AM EST POCT-POTASSIUM STAT 09/23/2022 7:39 AM EST FS_MODEL_IP_ECG 12-LEAD Routine 09/24/19 7:13 AM EST EKG-SCANNED 09/23/2022 documented in this encounter Results * (ABNORMAL) Glucose, Nova Meter (09/23/2022 8:51 AM EST) [facility] POC-GLUCOSE 177(H) 70 - 110 mg/dL 09/23/2022 8:52 AM EST [facility] Comment:Notified Nurse RBV Computer Assembler [id number] 09/23/2022 8:52 AM EST [facility] Blood WHOLE BLOOD / Unknown 09/23/2022 8:51 AM EST 09/23/2022 8:52 AM EST Narrative [facility] - 09/23/2022 8:52 AM EST Computer Assembler ID is - [id number] us Cb Renee MD POINT OF CARE TEST ORDERABLES Fi nal Result [facility] [address] [place] [address] * POCT , urine (09/23/2022 7:42 AM EST) [facility] POC, URINE HCG Negative Negative INTERNAL QC (VALID/INVALID ) Valid Kit Lot Number [id number] Expiration Date 09/15/2023 09/23/2022 7:42 AM EST us Pelon Mendoza MD [employer] ([employer])_MODEL_IP_POINT OF CARE TEST ENTER/EDIT ORDERABLES Final Result * (ABNORMAL) POC-Creatinine (09/23/2022 7:39 AM EST) [facility] POC-EGFR 8 mL/min/1. 73M2 09/23/2022 7:47 AM [facility] Comment:Proceed with contras t if eGFR > 45 ml/min/1.73 when performed on the NovaSTAT strip Creatinine meter. Computer Assembler [id number] 09/23/2022 7:47 AM EST [facility] POC-Creatinine 6.3(H) 0.6 - 1.3 mg/dL 09/23/2022 7:47 AM [facility] Blood 09/23/2022 7:39 AM EST 09/23/2022 7:47 AM EST Narrative [facility] - 09/23/2022 7:47 AM EST Computer Assembler ID is - [id number] us Cb Renee MD POINT OF CARE TEST ORDERABLES Fi nal Result Performing Organization Address [facility]/ZIP Co de Phone Number [facility] [address] [phone] * Glucose, iSTAT Meter (09/23/2022 7:39 AM EST) [facility] POC-GLUCOSE 87 70 - 105 mg/dL 09/23/2022 7:47 AM [facility] Blood 09/23/2022 7:39 AM EST 09/23/2022 7:47 AM EST Narrative [facility] - 09/23/2022 7:47 AM EST Computer Assembler ID is - [id number] us Cb Renee MD POINT OF CARE TEST ORDERABLES Fi nal Result Performing Organization Address City/[facility]/ZIP Co de Phone Number [facility] [address] [place] [address] * POC-Potassium (09/23/2022 7:39 AM EST) [facility] POC Potassium 4.5 3.5 - 4.9 mmol/L 09/23/2022 7:47 AM [facility] Blood 09/23/2022 7:39 AM EST 09/23/2022 7:47 AM EST Narrative [facility] - 09/23/2022 7:47 AM EST Computer Assembler ID is - [id number] us Pelon Mendoza MD POINT OF CARE TEST ORDERAB LES Final Result Performing Organization Address [facility]/ZIP Co de Phone Number [facility] [address] [phone] * ECG 12 lead (09/23/2022 7:13 AM EST) VENTRICULAR RATE EKG/MIN 72 BPM GE MUSE ATRIAL RATE (MCT) 72 BPM GE MUSE TX Interval 144 ms GE MUSE QRS-INTERVAL (MSEC) 76 ms GE MUSE QT Interval 410 ms GE MUSE QTC Interval 448 ms GE MUSE P Morton 79 degrees GE MUSE R AXIS (MCT) 71 degrees GE MUSE T Wave Morton 68 degrees GE MUSE [place] Diagnosis Normal sinus rhythm Normal ECG No previous ECGs available Confirmed by Lottie VU, GARFIELD ([id number]), graphic editor LEO VALDIVIA ([id number]) on 09/23/2022 3:18:05 PM GE MUSE 09/23/2022 7:13 AM EST 09/23/2022 3:18 PM EST us Cb Renee MD ECG ORDERABLES Final Result Performing Organization Address [facility]/ZIP Co de Phone Number GE MUSE * [...] at 0849, For 1 dose, Created by tiffaniet eugenioide promethazine (PHENERGAN) injection 6.25 mg 6.25 mg [...] 0930, For 1 dose, Recovery (only)., PACU 09 (Due) meperidine (PF) (DEMEROL) injection 12.5 mg [...]
--- OUTSIDE RECORDS SUMMARY | 2024-06-11 08:31 | XMS_ITS | Encounter Summary ---
Author Organization [facility] Address [address] [place] [address] Care Team Providers Care Kiln Maintenance Name Role Phone Unavailable Primary Care Provider [...] release of HIV test results or diagnoses. [id number] Health Encounter Details Date Type Department Care Team (Late st Contact Info) Description 11/30/[address] [facility] Kidney Transplant at [address] [address] Leticia Gregory Chart and excel sheet [...]
--- OUTSIDE RECORDS SUMMARY | 2024-06-11 08:31 | XMS_ITS | Referral Summary ---
Author Organization [employer] Address [address] [place] [address] Care Team Providers Care Chemistry Tutor Name Role Phone Unavailable Primary Care Provider [...] Date Blaine rded Speak language other than Australian at home Not on file 07/30/2023 Want [...] Plan of Treatment Not on file Insurance [facility] Advance Directives For more information, please contact: [phone] * Full Code (Latest Code Status on File) Date Activated Date Inactivated Comments 09/23/2022 6:27 AM 09/23/2022 11:31 AM
--- OUTSIDE RECORDS SUMMARY | 2024-06-11 08:31 | XMS_ITS | Encounter Summary ---
Author Organization [employer] Address [address] [place] [address] Care Team Providers Care It Network Architect Name Role Phone Unavailable Primary Care Provider Unavailabl e Encounter Details Date Type Department Care Team (Late st Contact Info) Description 01/19/2020 Historic Encounter [facility] Radiology [address] [phone] Maikol Leslie MD [address] [place] [address] Social History Tobacco Use Types Packs/Day Years [...]
--- OUTSIDE RECORDS SUMMARY | 2024-06-11 08:31 | XMS_ITS | Encounter Summary ---
Author Organization [employer] Address [address] [place] [address] Care Team Providers Care Lead Presser Name Role Phone Unavailable Primary Care Provider Unavailabl e Encounter Details Date Type Department Care Team (Late st Contact Info) Description 09/06/2022 Orders Only [facility] [address] [facility] [address] [place] [address] Ibrahima Talamantes MD [address] [facility] [address] [place] [address] Social History Tobacco Use Types [...] this encounter Results * PATHOLOGY REPORT (06/13/2018) Ibrahima Talamantes MD PATHOLOGY/CYTOLOGY ORDERABLES Final Result documented in this encounter Visit Diagnoses Not on filedocumented in this encounter
--- OUTSIDE RECORDS SUMMARY | 2024-06-11 08:31 | XMS_ITS | Encounter Summary ---
Author Organization [employer] Address [address] [place] [address] Care Team Providers Care Lining Sewer Name Role Phone Unavailable Primary Care Provider Unavailabl e Encounter Details Date Type Department Care Team (Late st Contact Info) Description 08/02/2022 Abstract [facility] [address] [facility] [address] [place] [address] John Garcia MD [address] [facility] [address] [place] [address] Social History Tobacco Use Types Packs/Day Years [...] Results * EXTERNAL LAB - MISC (06/16/2022) us John Garcia MD LAB BLOOD ORDERABLES Final Resu lt documented in this encounter Visit Diagnoses Not on filedocumented in this encounter
--- OUTSIDE RECORDS SUMMARY | 2024-06-11 08:31 | XMS_ITS | Encounter Summary ---
Author Organization [employer] Address [address] [place] [address] Care Team Providers Care Block Tester Name Role Phone Unavailable Primary Care Provider Unavailabl e Encounter Details Date Type Department Care Team (Late st Contact Info) Description 09/15/2021 Transcribed Document [facility] Family Medicine [address] [place] [address] ProviderLaury MD [address] [place] [address] Social History Tobacco Use Types Packs/Day [...] Cerner Conversion Note - Laury ProviderMD - 09/15/2021 11:12 AM BLOOD BANK ORDER CONTROL CLERK Broset Violence Assessment Entered On: 09/15/2021 12:44 EST Performed On: 09/15/2021 12:43 EST by AUSTIN AVILES RN Broset Violence Assessment Broset Violence Checklist of Symptoms : None Broset Violence Symptoms Subtotal : 0 Broset Violence Symptoms Indicator : Low risk (0) AUSTIN AVILES RN - 09/15/2021 12:43 EST Electronically signed by Interface, [facility] Conversion Keno Writer/Runner Cerner at 11/02/2022 10:10 AM CDT documented in this encounter Plan of Treatment Not on file documented as of this encounter Visit Diagnoses Not on filedocumented in this encounter
--- OUTSIDE RECORDS SUMMARY | 2024-06-11 08:31 | XMS_ITS | Encounter Summary ---
Author Organization [employer] Address [address] [place] [address] Care Team Providers Care Imcu Nurse Name Role Phone Unavailable Primary Care [...]
--- OUTSIDE RECORDS SUMMARY | 2024-06-11 08:31 | XMS_ITS | Encounter Summary ---
Author Organization [facility] Address [address] [place] [address] Care Team Providers Care Archives Director Name Role Phone Unavailable Primary Care [...] release of HIV test results or diagnoses. [id number] Health Encounter Details Date Type Department Care Team (Late st Contact Info) Description 09/16/2023 Telephone [facility] Kidney Transplant at [address] [address] Bernardo White MA Social History Tobacco [...]
--- OUTSIDE RECORDS SUMMARY | 2024-06-11 08:31 | XMS_ITS | Encounter Summary ---
Author Organization [employer] Address [address] [place] [address] Care Team Providers Care Correspondence Analyst Name Role Phone Unavailable Primary Care Provider Unavailabl e Reason for Visit * Reason Onset Date Comments Follow-up 09/28/2022 Encounter Details Date Type Department Care Team (Late st Contact Info) Description 09/28/2022 Telephone [facility] [address] [facility] [address] [place] [phone] Annmarie George CMA Follow-up Social History [...] 1:00 p.m. She is to go to [address] [place] [address]. If she has any questions or needs to change her appointment she can contact them at [phone]. She voiced her understanding and thanked me for the information. Electronically signed by Annmarie Nowak CMA - 09/28/2022 - 1:18 PM EDT documented in this encounter Plan of Treatment Not on file documented as of this encounter Visit Diagnoses Not on filedocumented in this encounter
--- OUTSIDE RECORDS SUMMARY | 2024-06-11 08:31 | XMS_ITS | Encounter Summary ---
Author Organization [employer] Address [address] [place] [address] Care Team Providers Care Security Engineer Name Role Phone Unavailable Primary Care Provider Unavailabl e Reason for Visit * Reason Comments Post-Op Follow-up laparoscopic periton eal dialysis catheter placement Encounter Details Date Type Department Care Team (Late st Contact Info) Description 09/27/2022 1:00 PM EDT Office Visit [facility] [address] [facility] [address] [place] [address] Ace Simms PA-C [address] [facility] [address] [place] [address] Stage 4 chronic kidney disease (HCC) (Primary [...]
--- OUTSIDE RECORDS SUMMARY | 2024-06-11 08:31 | XMS_ITS | Encounter Summary ---
Author Organization [employer] Address [address] [place] [address] Care Team Providers Care Pharmacy District Manager Name Role Phone Unavailable Primary Care Provider Unavailabl e Reason for Visit * Reason Comments New Patient peritoneal dialysis catheter evaluation * Surgical (Routine) - Closed Specialty Diagnoses / Procedures Referred By Contac t Referred To Contact General Surgery Diagnoses CKD (chronic kidney disease) Ibrahima Talamantes MD [address] [place] [address] [address] [place] [address] Phone: tel: fax: Cb Renee MD [address] [place] [address] [address] Phone: tel: fax: Referral ID Status Reason Start Date Expiration Date Visits Re quested Visits Authorized [id number] Closed 09/07/2022 03/06/2023 1 1 Encounter Details Date Type Department Care Team (Late st Contact Info) Description 09/13/2022 10:00 AM EST Office Visit [facility] [address] [place] [address] [address] [place] [address] Cb Renee MD [address] [place] [address] [address] [id number] Stage 4 chronic kidney disease (HCC) (Primary [...] CMA - 09/13/2022 - 10:14 AM EST INUOUS MINING MACHINE OPERATOR documented in this encounter Plan of Treatment Not on file documented as of this encounter Visit Diagnoses Diagnosis Stage 4 chronic kidney disease (HCC)- Primary documented in this encounter
--- OUTSIDE RECORDS SUMMARY | 2024-06-11 08:31 | XMS_ITS | Encounter Summary ---
Author Organization [facility] Address [address] [place] [address] Care Team Providers Care Senior Service Aide Name Role Phone Unavailable Primary Care [...] release of HIV test results or diagnoses. [id number] Health Encounter Details Date Type Department Care Team (Late st Contact Info) Description 10/13/2023 Abstract [facility] Kidney Transplant at [address] [phone] Leticia Gregory ESRD (end stage renal disease) on dialysis ([facility]) (Primary Dx) Social History Tobacco Use Types [...] finished. CT ABD/PELV from 05/21/2023 requested from [employer] at [facility]. [facility] to push image to [facility] PACS. Sent email to PACS to mergeinto patient's chart. documented in this encounter Plan of Treatment Not on file documented as of this encounter Visit Diagnoses Diagnosis ESRD (end stage renal disease) on dialysis ([facility])- Primary End stage renal disease documented in this encounter
--- OUTSIDE RECORDS SUMMARY | 2024-06-11 08:31 | XMS_ITS | Encounter Summary ---
Author Organization [facility] Address [address] [place] [address] Care Team Providers Care Shoe Coverer Name Role Phone Unavailable Primary Care Provider [...] release of HIV test results or diagnoses. [id number] Health Encounter Details Date Type Department Care Team (Late st Contact Info) Description 10/20/2023 Chart Note [facility] Kidney Transplant at [address] [address] Vivian Dee RN Anemia due to chronic kidney disease, on chronic dialysis ([facility]) (Primary Dx); Depression, unspecified depression type; History of bariatric surgery; History of drug abuse ([facility]); Mixed hyperlipidemia; Pre-transplant evaluation for kidney transplant; Type 2 diabetes mellitus with chronic kidney disease on chronic dialysis, with long-term current use of insulin ([facility]); Hypertension secondary to other renal disorders Social [...] of this encounter Progress Notes * Vivian eDe RN - 10/20/2023 10:04 AM EDT Chart prep documented in this encounter Plan of Treatment Not on file documented as of this encounter Visit Diagnoses Diagnosis Anemia due to chronic kidney disease, on chronic dialysis ([facility])- Primary Depression, unspecified depression type History of bariatric surgery Bariatric surgery status History of drug abuse ([facility]) Other, mixed, or unspecified nondependent drug abuse, in remission Mixed hyperlipidemia Pre-transplant evaluation for kidney transplant Type 2 diabetes mellitus with chronic kidney disease on chronic dialysis, with long-term current use of insulin ([facility]) Hypertension secondary to other renal disorders documented in this encounter
--- OUTSIDE RECORDS SUMMARY | 2024-06-11 08:31 | XMS_ITS | Encounter Summary ---
Author Organization [facility] [facility] Address [address] [place] [address] Care Team Providers Care Membership Counselor Name Role Phone Unavailable Primary Care Provider Unavailabl e Reason for Visit * Auth/Cert Specialty Diagnoses / Procedures Referred By Xochitl burt Referred To Contact Diagnoses Chronic kidney disease, stage IV (severe) (HCC) Chronic kidney disease, Procedures OR LAP INSERTION TUNNELED INTRAPERITONEAL CATHETER LAPAROSCOPY, WITH PERITONEAL DIALYSIS CATHETER INSERTION Cb Renee MD [address] [facility] [address] [place] [address] Phone: tel: fax: Referral ID Status Reason Start Date Expiration Date Visits Re quested Visits Authorized [id number] 09/13/2022 1 1 Encounter Details Date Type Department Care Team (Late st Contact Info) Description 09/23/2022 8:00 AM EST Anesthesia Event [facility] Operating Room 1 [place] [address] Margarito Escobedo MD [address] [place] [address] Anesthesia Record Procedure Summary Procedure Name Responsible [...] Abdomen; Not applicable 09/23/22 0849 by Bc Grullon RN Peripheral IV Placement Date: 04/09; Placement Time: 07; Size: 20 G; Orientation: Anterior, Left, Proximal; [...] Summary Date: 09/23/22 Room / Location: [facility] OPERATING ROOM Anesthesia Start: 0800 Anesthesia [...] acceptable Comments: Phenergan given for nausea Color: Alexander Activity: Moves 4 extremities Inotropes/Vasopressors: N/A There were no known complications for this encounter. Margarito Escobedo MD 09/23/2022 8:55 AM EST L PRESS OPERATOR * Anesthesia Procedure Notes - Margarito Escobedo [...] 1 Number of other approaches attempted: 0 L PRESS OPERATOR * Anesthesia Preprocedure Evaluation - Margarito Escobedo MD - 09/23/2022 7:41 AM EST ANESTHESIA PREOPERATIVE EVALUATION Patient: Crystal Archer Date/Time: 09/23/22 0850 Procedure: LAPAROSCOPIC PD CATHETER PLACEMENT), (N/A ) - IN 629 , 1 HR (R) Location: [facility] OR [address] [place] [address] OPERATING ROOM Surgeons: Cb Renee MD Vitals: 09/23/22 0600 09/23/22 0721 09/23/22 0724 BP: (!) 222/111 Pulse: 78 Resp: [...] Anesthetic plan and risks discussed with patient. L PRESS OPERATOR L PRESS OPERATOR documented in this encounter Plan of [...]
--- OUTSIDE RECORDS SUMMARY | 2024-06-11 08:31 | XMS_ITS | Encounter Summary ---
Author Organization [facility] Address [address] [place] [address] Care Team Providers Care Switchboard Operator Assistant Name Role Phone Unavailable Primary Care [...] release of HIV test results or diagnoses. [id number] Health Encounter Details Date Type Department Care Team (Late st Contact Info) Description 12/08/2023 Chart Note [facility] Kidney Transplant at [address] [address] Vivian Dee RN Received a VM [...]
--- OUTSIDE RECORDS SUMMARY | 2024-06-11 08:31 | XMS_ITS | Encounter Summary ---
Author Organization [employer] [facility] Address [address] [place] [address] Care Team Providers Care Geophysicist Name Role Phone Unavailable Primary Care Provider Unavailabl e Reason for Visit * Auth/Cert Specialty Diagnoses / Procedures Referred By Xochitl burt Referred To Contact Diagnoses Chronic kidney disease, stage IV (severe) (HCC) Chronic kidney disease, Procedures [place] LAP INSERTION TUNNELED INTRAPERITONEAL CATHETER LAPAROSCOPY, WITH PERITONEAL DIALYSIS [place] [address] [place] [address] [place] [address] Phone: tel: fax: Referral ID Status Reason Start Date Expiration Date Visits Re quested Visits Authorized [id number] 09/13/2022 1 1 Encounter Details Date Type Department Care Team (Late st Contact Info) Description 09/23/2022 8:00 AM EST - 09/23/2022 9:20 AM EST Surgery [facility] Operating Room 1 [place] [phone] Cb Renee MD [address] [place] [address] [place] [address] LAPAROSCOPIC PD CATHETER PLACEMENT), Social History Tobacco [...] for 24 hours or while taking narcotics NS TIER * Attachments The following attachments cannot be sent through Care Everywhere. * General Anesthesia Adult Care After (Cambodian) * Peritoneal Dialysis Catheter Placement Care After (Cambodian) * Acetaminophen; Hydrocodone Capsules or Tablets (Cambodian) documented in this encounter Medications at Time [...] this encounter H&P Notes * Mare Rodgers, CRYSTAL CALIBRATOR - 09/23/2022 8:00 AM EST HPI History [...] ??? POC-EGFR 09/23/2022 8 mL/min/1.73M2 Final ??? Direct Marketing Manager 09/23/2022 [id number] Final ??? POC-Creatinine 09/23/2022 6.3 (A) 0.6 - 1.3 mg/dL Final No image results found. Assessment & Plan Renal failure DM Hyperparathyroidism Anemia HTN HLD Hyperkalemia Pt to proceed with surgery, DC home today. Electronically signed by: Mare Rodgers APRN, 09/23/2022 at 8:32 AM Cosigned by Cb Renee MD at 09/23/2022 2:25 PM EST NS TIER NS TIER Associated attestation - Cb Renee MD - 09/23/2022 1:25 PM GREENS TIER Patient seen and examined by myself. Agree [...] dialysis catheter on September 23, 2022 at [facility]. ?? Electronically signed by Annmarie Nowak CMA - 09/13/2022 - 10:14 AM EST ?? Patient?? Crystal Archer 32 year old female 1990 ?? [address] [facility] [address] ?? [phone] (M) [phone] (H) Comm Pref: Recent Visits with You 09/13/2022 Office Visit More...?? Significant History/Details?? Smoking Former Smoker (Quit Date: ) Smokeless Tobacco Never Used Alcohol Not Currently Preferred Language Cambodian Specialty Comments Edit Show all No comments regarding your specialty Family Comments Edit None Care Team and Communications?? No referring provider ?? No PCP set ?? No other patient care team members ?? Visit Treatment Team Relationship Cb Renee MD Surgeon ? Recipients of Automatic ADT Notifications for This Admission Show All Admissions No notifications found. Social Determinants of Health?? Find Mirak[employer] resources Imported Leg[employer]rogenex Documents Created Type Source 04/11/2022 Continuity of Care Document?? [facility]SCRIP[facility] 03/18/2022 Continuity of Care Document?? [facility] CERNER 03/17/2022 Continuity of Care Document?? [facility] CERNER Since Your Last Visit [...] Labs and Imaging No resulted procedures found. NS TIER documented in this encounter Miscellaneous Notes * Nursing Progress Notes - Yue Jacome RN - 09/23/2022 9:52 AM EST Pt has abd pad with binder NS TIER * Op Note - Cb Renee MD - 09/23/2022 9:18 AM EST DATE OF PROCEDURE: 09/23/2022 PREOPERATIVE DIAGNOSIS: Chronic kidney disease. POSTOPERATIVE DIAGNOSIS: Chronic kidney disease. PROCEDURE PERFORMED: Laparoscopic placement of peritoneal dialysis catheter. KILN REPAIRER: Wil Chawla. ANESTHESIA: General endotracheal. FINDINGS: The [...] was taken to Recovery in stable condition. /[id number] Cb Renee MD [facility] / [facility] [place] /[id number] NS TIER documented in this encounter Plan of Treatment Not on file documented as of this encounter Procedures Procedure Name Priority Date/Time Associated Diagnosis Comments NOVA GLUCOSE POC Routine 09/23/2022 8:51 AM EST [place] LAP INSERTION TUNNELED INTRAPERITONEAL CATHETER 09/23/2022 7:50 AM EST Chronic kidney disease, stage IV (severe) ([facility]) FS_MODEL_IP POCT , URINE Routine 09/23/2022 7:42 AM EST ISTAT GLUCOSE POC Routine 09/23/2022 7:3 9 AM EST POCT-CREATININE Routine 09/23/2022 7:39 AM EST POCT-POTASSIUM STAT 09/23/2022 7:39 AM EST FS_MODEL_IP_ECG 12-LEAD Routine 09/24/19 7:13 AM EST EKG-SCANNED 09/23/2022 documented in this encounter Results * (ABNORMAL) Glucose, Nova Meter (09/23/2022 8:51 AM EST) [facility] POC-GLUCOSE 177(H) 70 - 110 mg/dL 09/23/2022 8:52 AM EST [facility] Comment:Notified Nurse RBV Direct Marketing Manager [phone] 09/23/2022 8:52 AM EST [facility] Blood WHOLE BLOOD / Unknown 09/23/2022 8:51 AM EST 09/23/2022 8:52 AM EST Narrative [facility] - 09/23/2022 8:52 AM EST Direct Marketing Manager ID is - [id number] us Cb Renee MD POINT OF CARE TEST ORDERABLES Fi nal Result [facility] [address] [phone] * POCT , urine (09/23/2022 7:42 AM EST) [facility] POC, URINE HCG Negative Negative INTERNAL QC (VALID/INVALID ) Valid Kit Lot Number [id number] Expiration Date 09/15/2023 09/23/2022 7:42 AM EST us Pelon Mendoza MD FS_MODEL_IP_POINT OF CARE TEST ENTER/EDIT ORDERABLES Final Result * (ABNORMAL) POC-Creatinine (09/23/2022 7:39 AM EST) [facility] POC-EGFR 8 mL/min/1. 73M2 09/23/2022 7:47 AM [facility] Comment:Proceed with contras t if eGFR > 45 ml/min/1.73 when performed on the NovaSTAT strip Creatinine meter. Direct Marketing Manager [phone] 09/23/2022 7:47 AM EST [facility] POC-Creatinine 6.3(H) 0.6 - 1.3 mg/dL 09/23/2022 7:47 AM EST [facility] Blood 09/23/2022 7:39 AM EST 09/23/2022 7:47 AM EST Narrative [facility] - 09/23/2022 7:47 AM EST Direct Marketing Manager ID is - [id number] us Cb Renee MD POINT OF CARE TEST ORDERABLES Fi nal Result Performing Organization Address [facility] Co de Phone Number [facility] [address] [phone] * Glucose, iSTAT Meter (09/23/2022 7:39 AM EST) [facility] POC-GLUCOSE 87 70 - 105 mg/dL 09/23/2022 7:47 AM [facility] Blood 09/23/2022 7:39 AM EST 09/23/2022 7:47 AM EST Narrative [facility] - 09/23/2022 7:47 AM EST Direct Marketing Manager ID is - [id number] us Cb Renee MD POINT OF CARE TEST ORDERABLES Fi nal Result Performing Organization Address [facility]/ZIP Co de Phone Number [facility] 1 [place] [address], [facility] [phone] * POC-Potassium (09/23/2022 7:39 AM EST) [facility] POC Potassium 4.5 3.5 - 4.9 mmol/L 09/23/2022 7:47 AM [facility] Blood 09/23/2022 7:39 AM EST 09/23/2022 7:47 AM EST Narrative [facility] - 09/23/2022 7:47 AM EST Direct Marketing Manager ID is - [id number] us Pelon Mendoza MD POINT OF CARE TEST ORDERAB LES Final Result Performing Organization Address [facility]/ZIP Co de Phone Number [facility] [address] [phone] * ECG 12 lead (09/23/2022 7:13 AM EST) VENTRICULAR RATE EKG/MIN 72 BPM GE MUSE ATRIAL RATE (MCT) 72 BPM GE MUSE [place] Interval 144 ms GE MUSE QRS-INTERVAL (MSEC) 76 ms GE MUSE QT Interval 410 ms GE MUSE QTC Interval 448 ms GE MUSE P [place] 79 degrees GE MUSE R AXIS (MCT) 71 degrees GE MUSE T Wave [place] 68 degrees GE MUSE [place] Diagnosis Normal sinus rhythm Normal ECG No previous ECGs available Confirmed by Lottie VU, GARFIELD ([id number]), map editor LEO VALDIVIA ([id number]) on 09/23/2022 3:18:05 PM GE MUSE 09/23/2022 7:13 AM EST 09/23/2022 3:18 PM EST us Cb Renee MD ECG ORDERABLES Final Result Performing Organization Address [facility] Co de Phone Number GE MUSE * [...] (PF) injection As needed, Starting on Emma 3/9/23 at 0818, Intra-op Given 09/23/2022 8:18 AM [...] approved restricted patient population specified above? Yes 0930 (Due) sodium chloride 0.9% (NS) infusion Once, [...]
--- OUTSIDE RECORDS SUMMARY | 2024-06-11 08:31 | XMS_ITS | Encounter Summary ---
Author Organization [facility] Address [address] [place] [address] Care Team Providers Care Concrete Precast Moulder Name Role Phone Unavailable Primary Care Provider [...] release of HIV test results or diagnoses. [id number] Health Encounter Details Date Type Department Care Team (Late st Contact Info) Description 09/06/2023 Telephone [facility] Kidney Transplant at [address] [address] Bernardo White MA Social History [...] EST This FEDERICO sent referring office an [employer] fax to inform of referral acceptance.This FEDERICO scanned into media tab [id number]. documented in this encounter Plan of Treatment Not on file documented as of this encounter Visit Diagnoses Not on filedocumented in this encounter
--- OUTSIDE RECORDS SUMMARY | 2024-06-11 08:31 | XMS_ITS | Encounter Summary ---
Author Organization [facility] Address [address] [place] [address] Care Team Providers Care Supervisor Malted Milk Name Role Phone Unavailable Primary Care Provider [...] release of HIV test results or diagnoses. [id number] Health Encounter Details Date Type Department Care Team (Late st Contact Info) Description 10/24/2023 Telephone [facility] Kidney Transplant at [address] [address] Sarai Montiel MA Social History Tobacco [...]
--- OUTSIDE RECORDS SUMMARY | 2024-06-11 08:31 | XMS_ITS | Encounter Summary ---
Author Organization [facility] Address [address] [place] [address] Care Team Providers Care Property Assessment Monitor Name Role Phone Unavailable Primary Care Provider [...] release of HIV test results or diagnoses. [id number] Health Encounter Details Date Type Department Care Team (Late st Contact Info) Description 09/06/2023 Chart Note [facility] Kidney Transplant at [address] [address] Bernardo White MA Ron w [facility] [address] Social History Tobacco Use Types Packs/Day Years [...] - 09/06/2023 8:52 AM EST [place] [address] New Kidney [place] referral [facility] [place] [...]
--- OUTSIDE RECORDS SUMMARY | 2024-06-11 08:31 | XMS_ITS | Clinical Summary ---
Author Organization [email or web address] [facility] Address [address] [place] [address] Care Team Providers Care Mathematician Name Role Phone Unavailable Primary Care Provider [...] Date Blaine rded Speak language other than Citizen Of [place] at home Not on file 07/30/2023 Want [...] Screening 2007 Pap Smear 2010 COVID-19 VACCINE (1 - 2023-2 5 season) 2024 Influenza Vaccine (#1) 2024 9, 04/06/2018, 04/05/2012, Additional history exists Tobacco Cessation Counseling and Screening (12+) 05/21/2024 05/21/2023 DTAP/TDAP/TD VACCINES (2 - T d or Tdap) 02/16/2028 02/15/2018 Insurance [facility] Advance Directives For more information, please contact: [phone] * Full Code (Latest Code Status on File) Date Activated Date Inactivated Comments 09/23/2022 6:27 AM 09/23/2022 11:31 AM
--- OUTSIDE RECORDS SUMMARY | 2024-06-11 08:31 | XMS_ITS | Clinical Summary ---
Author Organization [facility] Address [address] [place] [address] Care Team Providers Care Apprentice Pattern Maker Name Role Phone Unavailable Primary Care [...] therelease of HIV test results or diagnoses. [id number] Allergies Active Allergy Reactions Criticality Noted [...] - Td or Tdap) 09/28/2033 09/29/2023 Insurance [facility] care Address: [facility] [id number] [place] [id number]
--- OUTSIDE RECORDS SUMMARY | 2024-06-11 08:31 | XMS_ITS | Encounter Summary ---
Author Organization [facility] Address [address] [place] [address] Care Team Providers Care Sammying Machine Operator Name Role Phone Unavailable Primary [...] release of HIV test results or diagnoses. [id number] Health Encounter Details Date Type Department Care Team (Latest Contact Info) Description 10/17/2023 2:37 PM EDT - 10/17/2023 11:59 PM EDT Hospital Encounter [facility] Radiology [address] [place] [phone] System, Provider Not In Discharge Disposition: Home [...]
--- OUTSIDE RECORDS SUMMARY | 2024-06-11 08:31 | XMS_ITS ---
Author Organization [facility] Address [address] [place] [address] Care Team Providers Care System Analyst Name Role Phone Unavailable Primary Care Provider Unavailabl e Transplant Episode Kidney Candidate [facility] ([place], [place]) - [facility] Referred on 09/06/2023 Marked as Ineligible on 12/08/2023 Reason: Transplanted at Another Center Kidney CoordinatorVivian Dee RN Phone: N/A Fax: N/A Email: N/A Scores Score Value Updated Exceptions/Reas ons CPRA Not available EPTS (Calc) 29 06/11/2024 Care Team Name Role Phone Fax Email Vivian Dee RN Kidney Coordinator N/A N/A N/A Amish Ritchie MD Txp Fuel Tank Sealer And Tester N/A N/A N/A Vivian Dee RN Txp Pre Coordinator N/A N/A N/A Mukul Stevens MD Referring Physician N/A N/A N/A Events Pre-Transplant Referred: 09/06/2023 Dialysis History Dialysis History Start End Type Comments Center 11/08/2022 Peritoneal [facility] Information Center Phone Fax Address [facility] [phone] [address] [facility], [address] [place] [address]
--- OUTSIDE RECORDS SUMMARY | 2024-06-11 08:31 | XMS_ITS | Encounter Summary ---
Author Organization [facility] Address [address] [place] [address] Care Team Providers Care National Service Officer Name Role Phone Unavailable Primary Care [...] release of HIV test results or diagnoses. [id number] Health Encounter Details Date Type Department Care Team (Late st Contact Info) Description 10/03/2023 Telephone [facility] Kidney Transplant at [address] [address] Bernardo Whtie MA Social History Tobacco Use Types Packs/Day [...] PM EDT Email address for video link [email or web address] Referral Questionnaire Basic Info Previously [...] Where do you normally receive your medical care?[facility] stuff TAD or [facility] Kidney biopsy (When? Where) [facility] Stress Test :( When? Where?) (Only obtain if in last 12 months) yes Echocardiogram: (When? Where?) (Only obtain if in last 12 months) yes Routine Health Maintenance - Remind patient to update as need PAP: mar 2023 Mammogram: mar 2023 Colonoscopy (Where? When?): no Dental/Wear Dentures: no COVID Vaccine: no Hepatitis B vaccine series: no Additional Information:. Living Donor(s): no Reminders ([facility] Appointments ONLY): Long appointment , eat [...]
--- OUTSIDE RECORDS SUMMARY | 2024-06-11 08:31 | XMS_ITS | Encounter Summary ---
Author Organization [facility] Address [address] [place] [address] Care Team Providers Care Insurance Account Specialist Name Role Phone Unavailable Primary Care [...] release of HIV test results or diagnoses. [id number] Health Encounter Details Date Type Department Care Team (Late st Contact Info) Description 11/21/2023 Telephone [facility] Kidney Transplant at [address] [address] Bernardo White MA Social History [...] TXP. This MA moved PT to December [facility] OR clinic. RN notified documented in this encounter Plan of Treatment Not on file documented as of this encounter Visit Diagnoses Not on filedocumented in this encounter
--- OUTSIDE RECORDS SUMMARY | 2024-06-11 08:31 | XMS_ITS | Encounter Summary ---
Author Organization [employer] [facility] Address [address] [place] [address] Care Team Providers Care Artificial Foliage Arranger Name Role Phone Unavailable Primary Care Provider Unavailabl e Encounter Details Date Type Department Care Team (Late st Contact Info) Description 01/19/2020 Transcribed Document [facility] [address] [place] [address] ProviderLaury MD [address] [place] [id number] Social History Tobacco Use Types Packs/Day Years [...] Obtained From : Patient Primary Language : New Zealander Preferred Communication Mode : Verbal Communication Barrier : None Diamond Cutter Needed : No OCTAVIO BRAND RN - [...] Scale Risk Level : 0-24 Low Risk [place] Fall Interventions : Adequate lighting, Bed in [...] Source : Stated Height Entry Format : Watson Height, Feet : 5 ft(Converted to: 152 cm, 60 Inch) Height, Inches : 5 Inch(Converted to: 0 ft 5 Inch, 12.70 cm) Clinical Height : 165.1 cm Weight Source : Standing scale Weight Entry Format : Watson Clinical Dosing Weight : 104.91 kg Weight, Pounds : 230.8 lb Body Surface Area (BSA) : 2.1 m2 Body Mass Index : 38.5 kg/m2 (HI) Mcgregor Body Weight : 57 kg OCTAVIO BRAND [...] History : Influenza Tuberculosis Symptoms : None CATHIE, OCTAVIO, RN - 01/19/2020 8:36 EDT Influenza Vaccine [...] OCTAVIO BRAND RN - 01/19/2020 8:36 EDT [place] Suicide Severity Rating Scale (C-SSRS) CSSRS Past [...]
--- OUTSIDE RECORDS SUMMARY | 2024-06-11 08:31 | XMS_ITS | Encounter Summary ---
Author Organization [employer] [facility] Address [address] [place] [address] Care Team Providers Care Tutoring Manager Name Role Phone Unavailable Primary Care Provider Unavailabl e Encounter Details Date Type Department Care Team (Late st Contact Info) Description 05/30/2020 Historic Encounter [address] [address] ProviderJen Historical Social History Tobacco [...] Associated Diagnosis Comments NOVEL CORONAVIRUS 2019 PCR ([facility] BKR DATA CONV) Routine 05/30/2020 8:28 AM EST documented in this encounter Results * NOVEL CORONAVIRUS 2019 PCR ([facility] BKR DATA CONV) (05/30/2020 8:28 AM EST) Novel COVID 2019 PCR NOT DETECTED NEGATIVE- NEGATIVE [facility] Comment: Testing performed at: [facility] [address] [place] [address], [facility] [address] [place] [address] Director: SHABNAM PRESSLEY, PHD ?? CLIA#:[id number] 05/30/2020 8:28 AM EST [facility] Historical Provider BODY FLUIDS AND STOOLS ORDERABLES Final Result [facility] [address] [place] [address], [facility] [phone] documented in this encounter Visit Diagnoses Not on filedocumented in this encounter
--- OUTSIDE RECORDS SUMMARY | 2024-06-11 08:32 | XMS_ITS | Encounter Summary ---
Author Organization [facility] [facility] Address [address] [place] [address] Care Team Providers Care Jewelry Salesperson Name Role Phone Unavailable Primary Care Provider Unavailabl e Encounter Details Date Type Department Care Team (Late st Contact Info) Description 09/28/2019 Transcribed Document [facility] Family Medicine [address] [place] [address] ProviderLaury MD [address] [place] [id number] Social History Tobacco Use Types Packs/Day Years [...] Policy Numbers : Insurance 1 Health Plan: [facility] Policy Number: [id number] Authorization Number: Insurance Primary Name : [facility] Policy Number: [id number] Authorization Status-Primary : Admit approved Reference Number-Primary : [id number] Authorization Number-Primary : [id number] Number of Days Authorized-Primary : 0 Day(s) Authorized Service Begin Date-Primary : 10/11/2019 EDT Authorized Service End Date-Primary : 10/11/2019 EDT Authorization Comments-Primary : [facility] approved per website for 1 day inpt Historical Authorization Comments-Primary : No Authorization Comments Found AMNOJ HWANG RN-Utilization Review - 09/28/2019 12:44 EDT documented in this encounter Plan of Treatment Not on file documented as of this encounter Visit Diagnoses Not on filedocumented in this encounter
--- OUTSIDE RECORDS SUMMARY | 2024-06-11 08:32 | XMS_ITS | Encounter Summary ---
Author Organization [employer] Address [address] [place] [address] Care Team Providers Care Dissolver Operator Name Role Phone Unavailable Primary Care Provider Unavailabl e Encounter Details Date Type Department Care Team (Late st Contact Info) Description 10/31/2018 Transcribed Document [facility] [place] Family Medicine [address] [place] [address] ProviderLaury MD [address] [place] [address] [id number] Social History Tobacco Use Types Packs/Day Years [...] Laury ProviderMD - 10/31/2018 1:17 AM CDT [facility] ADDRESS [place], [place] [phone] Name:Crystal Archer Visit Date:10/30/2018 20:23:00 Emergency Department Care Providers: Physician: MEGHA MAN Physician: Our doctors and staff appreciate your choice of [facility] for your emergency medical care. Read these instructions carefully. Please call us if you have any questions about your medical problem. [facility] Emergency Department [phone] [facility] Emergency Department [phone] [facility] Emergency Department [phone] Patient Education Materials Crystal Archersil has been [...] 10/19/2011 Document Revised: 11/11/2016 Document Reviewed: 06/30/2015 [employer] Interactive Patient Education ? 2017 [employer] FOLLOW UP CARE Most conditions that [...] x-ray department to pick them up o [facility] # [phone] o [facility] # [phone] o [facility] # [phone] ?? If you had cultures done and [...] quit. o National Network of Tobacco Cessation [id number]-WOGF-NOW o [place] [employer] o [place] Heart Association [phone] o Sai/Manuel Mccray [phone] FINANCIAL INFORMATION ?? [facility] provides financial counseling to anyone who requests our services. ?? Emergency Physicians are independently contracted to provide your care. You will receive a bill for the care provided to you by the Physician and/or the Physician Senior Project Controls Specialist. This will be a separate bill [...] Emergency Department Within As needed Comments: I, Gianni Crystal Karen, have received a copy of these discharge instructions and acknowledge understanding of these instructions. . I understand that my condition may require more care and will arrange for further treatment as recommended Patient Signature / or Patient Filter Changing Technician Provider Signature Date Date/Time 10/30/2018 21:17 [facility] [...] Dose Frequency amLODIPine 2.5 mg oral tablet [place] 5 mg-325 mg oral tablet Comment: This med list is based on information you provided. Please take this form with you to check with your doctor(s) the appropriateness and dosages of all your medications. I, SurendradarvinCrystal, have received a copy of discharge home [...]
--- OUTSIDE RECORDS SUMMARY | 2024-06-11 08:32 | XMS_ITS | Encounter Summary ---
Author Organization [employer] Address [address] [place] [address] Care Team Providers Care Certified Orthotist Name Role Phone Unavailable Primary Care Provider Unavailabl e Encounter Details Date Type Department Care Team (Late st Contact Info) Description 01/19/2020 Transcribed Document [facility] Family Medicine [address] [place] [address] ProviderLaury MD [address] [place] [address] [id number] Social History Tobacco Use Types Packs/Day Years [...] Performed On: 01/19/2020 0:14 EDT by JASON FUENTES RN ED Event Note ED Event Date/Time : 01/19/2020 0:14 EDT ED Description of Event : patient states the glucose reading on her insulin pump is 49. patient was given d50 and it came up. Blanca Nj made aware JASON FUENTES RN - 01/19/2020 0:14 EDT Electronically signed by Zuleyka Byrd Conversion Finishing And Shipping Supervisor Cerner at 11/02/2022 10:04 AM CDT documented in this encounter Plan of Treatment Not on file documented as of this encounter Visit Diagnoses Not on filedocumented in this encounter
--- OUTSIDE RECORDS SUMMARY | 2024-06-11 08:32 | XMS_ITS | Encounter Summary ---
Author Organization [employer] Address [address] [place] [address] Care Team Providers Care Pierogi Maker Name Role Phone Unavailable Primary Care Provider Unavailabl e Encounter Details Date Type Department Care Team (Late st Contact Info) Description 01/08/2019 Transcribed Document [facility] Family Medicine [address] [place] [address] ProviderLaury MD [address] [place] [address] [phone] Social History Tobacco Use Types Packs/Day Years [...] Laury ProviderMD - 01/08/2019 12:31 AM CDT [facility] Emergency Department Depart Summary PERSON INFORMATION Name Crystal Archer Age 28 Years 1990 Sex Female Language PCP Marital Status Phone [phone] Visit Id Visit Reason Specialty Enc Type Emergency Med Service Referred by Track Group [facility] Discharge Tracking Id [id number] Checkout 01/07/2019 20:31:56 Checkin 01/07/2019 18:52:00 Acuity 3 - Urgent [facility] Dispo Type Arrival 01/07/2019 18:52:00 Reg Status LOS 000 01:39 Address: [address] [place] [address] [place] [address] POWERFORMS PHYSICIAN NOTES VITALS INFORMATION Vital Sign Triage Temp 99.4 Temp Route Pulse Rate 96 Respiratory Rate 16 Blood Pressure 137/ 85 LOCATION INFORMATION Arrival Nurse Unit Room Bed 01/07/2019 18:52:00 [facility] ED Waitroom ([facility]) 01/07/2019 20:31:56 [facility] ED Checkout ([facility]) MEDICAL INFORMATION Allergy Info: NSAIDs PATIENT EDUCATION INFORMATION Instructions: Follow up: DIAGNOSIS documented in this encounter Plan of Treatment Not on file documented as of this encounter Visit Diagnoses Not on filedocumented in this encounter
--- OUTSIDE RECORDS SUMMARY | 2024-06-11 08:32 | XMS_ITS | Encounter Summary ---
Author Organization [employer] Address [address] [place] [address] Care Team Providers Care Vehicle Window Tinter Name Role Phone Unavailable Primary Care Provider Unavailabl e Encounter Details Date Type Department Care Team (Late st Contact Info) Description 01/19/2020 Transcribed Document [facility] [place] [address] [place] [address] ProviderLaury MD [address] [place] [address] [phone] Social History Tobacco Use Types Packs/Day Years [...] pharmacies and retail stores. ??? Eat bland, jmtv-oe-yrqffc foods in small amounts as you are [...] and water are not available, use hand master control supervisor. Make sure that everyone in your household washes their hands frequently. ??? Take anmx-bep-rtrxtyk and prescription medicines only as told by [...] and water are not available, use hand master control supervisor. Make sure that everyone in your household [...] 07/30/2016 Document Revised: 12/12/2018 Document Reviewed: 12/12/2018 [employer] Interactive Patient Education ? 2020 [employer] Endocrinology Hypoglycemia Hypoglycemia occurs when the [...] instructions at home: General instructions ??? Take njli-wri-emyxzjv and prescription medicines only as told by [...] 07/04/2006 Document Revised: 12/26/2018 Document Reviewed: 08/06/2016 [employer] Interactive Patient Education ? 2020 [employer] Inc[employer] Electronically signed by Zuleyka Byrd Conversion Director Of Software Development Cerner at 11/02/2022 10:00 AM CDT documented in this encounter Plan of Treatment Not on file documented as of this encounter Visit Diagnoses Not on filedocumented in this encounter
--- OUTSIDE RECORDS SUMMARY | 2024-06-11 08:32 | XMS_ITS | Encounter Summary ---
Author Organization [employer] Address [address] [place] [address] Care Team Providers Care Ceo And Founder Name Role Phone Unavailable Primary Care Provider Unavailabl e Encounter Details Date Type Department Care Team (Late st Contact Info) Description 01/04/2020 Transcribed Document [facility] Family Medicine [address] [place] [address] ProviderLaury MD [address] [place] [address] [phone] Social History Tobacco Use Types Packs/Day Years [...]
--- OUTSIDE RECORDS SUMMARY | 2024-06-11 08:32 | XMS_ITS | Encounter Summary ---
Author Organization [employer] Address [address] [place] [address] Care Team Providers Care International Marketing Intern Name Role Phone Unavailable Primary Care Provider Unavailabl e Encounter Details Date Type Department Care Team (Late st Contact Info) Description 01/19/2020 Transcribed Document [facility] Family Medicine [address] [place] [address] ProviderLaury MD [address] [place] [address] [phone] Social History Tobacco Use Types Packs/Day Years [...] On: 01/19/2020 8:59 EDT by CRISTOBAL HANSEN RN-Critical Care Unit Manager Readmission Questionnaire Patient Status at Discharge, Previous [...] Questionnaire Was Readm Preventable : No CRISTOBAL HANSEN, RN-Critical Care Unit Manager - 01/19/2020 8:59 EDT documented in this encounter Plan of Treatment Not on file documented as of this encounter Visit Diagnoses Not on filedocumented in this encounter
--- OUTSIDE RECORDS SUMMARY | 2024-06-11 08:32 | XMS_ITS | Encounter Summary ---
Author Organization [employer] Address [address] [place] [address] Care Team Providers Care Credit Collections Manager Name Role Phone Unavailable Primary Care Provider Unavailabl e Encounter Details Date Type Department Care Team (Late st Contact Info) Description 01/18/2020 Transcribed Document [facility] [place] Family Medicine [address] [place] [address] ProviderLaury MD [address] [place] [address] 600511 Social History Tobacco Use Types Packs/Day Years [...] Communication Barrier : None Primary Language : Vincentian Any Spiritual/Cultural Needs or Requests : No [...]
--- OUTSIDE RECORDS SUMMARY | 2024-06-11 08:32 | XMS_ITS | Encounter Summary ---
Author Organization [employer] Address [address] [place] [address] Care Team Providers Care Survey Rodman Name Role Phone Unavailable Primary Care Provider Unavailabl e Encounter Details Date Type Department Care Team (Late st Contact Info) Description 01/18/2020 Transcribed Document [facility] Family Medicine [address] [place] [address] ProviderLaury MD [address] [place] [address] [phone] Social History Tobacco Use Types Packs/Day Years [...] On: 01/18/2020 20:31 EDT by MARKIE PANG, METAL RIVET MACHINE OPERATOR Triage Across the Room Chief Complaint : I THINK I AM DEHYDRATED, I HAD BARIATRIC SURGERY 01/04/20, GASTRIC SLEEVE, EVERYTIME I EAT OR DRINK I PUKE FRANCISCO REYES RN - 01/19/2020 1:21 EDT Triage Date/Time : 01/18/2020 20:31 EDT MARKIE PANG RN - 01/18/2020 20:31 EDT DCP GENERIC CODE Tracking Group : [facility] Tracking Acuity : 2 - [...] Problems(Active) At risk for sleep apnea (IMO :50616799 ) Name of Problem: At risk for sleep apnea ; Recorder: SYSTEM, SYSTEM; Confirmation: Confirmed ; Classification: Medical ; Code: 38491051 ; Last Updated: 08/24/2019 10:25 EST ; Life Cycle Date: 08/24/2019 ; Life Cycle Status: Active ; Vocabulary: IMO DM (diabetes mellitus) (SNOMED CT :051391107 ) Name of Problem: DM (diabetes mellitus) ; Recorder: ANGE Green RN; Confirmation: Confirmed ; Classification: Medical ; Code: 014185206 ; Contributor System: PowerChart ; Last Updated: 08/24/2019 10:17 EST ; Life Cycle Date: 08/24/2019 ; Life Cycle Status: Active ; Vocabulary: SNOMED CT HTN (hypertension) (SNOMED CT :8776558614 ) Name of Problem: HTN (hypertension) ; Recorder: ANGE Green RN; Confirmation: Confirmed ; Classification: Medical ; Code: 2504861260 ; Contributor System: PowerChart ; Last Updated: 08/24/2019 10:16 EST ; Life Cycle Date: 08/24/2019 ; Life Cycle Status: Active ; Vocabulary: SNOMED CT Hyperkalemia (SNOMED CT :20770441 ) Name of Problem: Hyperkalemia ; Recorder: Noelle Umanzor Rn; Confirmation: Confirmed ; Classification: Medical ; Code: 30000111 ; Contributor System: PowerChart ; Last Updated: 10/03/2019 10:52 EDT ; Life Cycle Date: 10/03/2019 ; Life Cycle Status: Active ; Vocabulary: SNOMED CT Hyperlipemia (SNOMED CT :03514213 ) Name of Problem: Hyperlipemia ; Recorder: ANGE Green RN; Confirmation: Confirmed ; Classification: Medical ; Code: 95460391 ; Contributor System: PowerChart ; Last Updated: 08/24/2019 10:17 EST ; Life Cycle Date: 08/24/2019 ; Life Cycle Status: Active ; Vocabulary: SNOMED CT Kidney disease (SNOMED CT :674697308 ) Name of Problem: Kidney disease ; Recorder: ANGE Green RN; Confirmation: Confirmed ; Classification: Medical ; Code: 621608274 ; Contributor System: PowerChart ; Last Updated: 08/24/2019 10:17 EST ; Life Cycle Date: 08/24/2019 ; Life Cycle Status: Active ; Vocabulary: SNOMED CT Neuropathy (SNOMED CT :7501232032 ) Name of Problem: Neuropathy ; Recorder: ANGE Green RN; Confirmation: Confirmed ; Classification: Medical ; Code: 6027521687 ; Contributor System: PowerChart ; Last Updated: 08/24/2019 10:18 EST ; Life Cycle Date: 08/24/2019 ; Life Cycle Status: Active ; Vocabulary: SNOMED CT Retinopathy (SNOMED CT :83507343 ) Name of Problem: Retinopathy ; Recorder: Noelle Umanzor Rn; Confirmation: Confirmed ; Classification: Medical ; Code: 39363276 ; Contributor System: [employer] (Astilbe)Chart ; Last Updated: 10/03/2019 10:52 EDT ; Life Cycle Date: 10/03/2019 ; Life Cycle Status: Active ; Vocabulary: SNOMED CT Diagnoses(Active) Dehydration Date: 01/18/2020 ; Diagnosis Type: Reason For Visit ; Confirmation: Complaint of ; Clinical Dx: Dehydration ; Classification: Medical ; Clinical Service: Emergency medicine ; Code: PNED ; Probability: 0 ; Diagnosis Code: [id number] Vomiting Date: 01/18/2020 ; Diagnosis Type: Reason For Visit ; Confirmation: Complaint of ; Clinical Dx: Vomiting ; Classification: Medical ; Clinical Service: Emergency medicine ; Code: PNED ; Probability: 0 ; Diagnosis Code: [id number] ED Height and Weight Height Source : Stated Height Entry Format : [place] Height, Feet : 5 ft(Converted to: 152 cm, 60 Inch) Height, Inches : 5 Inch(Converted to: 0 ft 5 Inch, 12.70 cm) Clinical Height : 165.1 cm Weight Source, ED : Standing scale Weight Entry Format : [place] Weight, Pounds : 230.8 lb Clinical Dosing Weight : 104.91 kg Body Surface Area (BSA) : 2.1 m2 Body Mass Index : 38.5 kg/m2 (HI) [place] Body Weight (IBW) : 56.59 kg MARKIE PANG RN - 01/18/2020 20:31 EDT documented in this encounter Plan of Treatment Not on file documented as of this encounter Visit Diagnoses Not on filedocumented in this encounter
--- OUTSIDE RECORDS SUMMARY | 2024-06-11 08:32 | XMS_ITS | Encounter Summary ---
Author Organization [employer] Address [address] [place] [address] Care Team Providers Care Mental Health Assistant Name Role Phone Unavailable Primary Care Provider Unavailabl e Encounter Details Date Type Department Care Team (Late st Contact Info) Description 09/26/2018 Transcribed Document [facility] [address] [place] [address] ProviderLaury MD [address] [place] [address] [phone] Social History Tobacco Use Types Packs/Day Years [...] Laury ProviderMD - 09/26/2018 10:56 PM CDT [facility] Department Depart Summary PERSON INFORMATION Name Crystal Archer Age 28 Years 1990 Sex Female Language PCP Marital Status Phone [phone] Visit Id Visit Reason Specialty Enc Type Emergency Med Service Referred by Track Group [facility] Discharge Tracking Id [id number] Checkout 09/26/2018 18:56:15 Checkin 09/26/2018 16:44:00 Acuity 3 - Urgent [facility] Dispo Type Arrival 09/26/2018 16:44:00 Reg Status LOS 000 02:12 Address: [address] [place] [address] [place] [address] POWERFORMS PHYSICIAN NOTES VITALS INFORMATION Vital Sign Triage Temp 98.7 Temp Route Oral/Mouth Pulse Rate 102 Respiratory Rate 20 Blood Pressure 140/ 72 LOCATION INFORMATION Arrival Nurse Unit Room Bed 09/26/2018 16:44:00 [facility] ED Waitroom ([facility]) 09/26/2018 16:50:17 [facility] ED 3 09/26/2018 18:56:15 [facility] ED Checkout ([facility]) MEDICAL INFORMATION Allergy Info: No Known Allergies PATIENT EDUCATION INFORMATION Instructions: Hematuria, Adult Follow up: With: Address: When: Follow up with primary care provider Within 5 to 7 days DIAGNOSIS documented in this encounter Plan of Treatment Not on file documented as of this encounter Visit Diagnoses Not on filedocumented in this encounter
--- OUTSIDE RECORDS SUMMARY | 2024-06-11 08:32 | XMS_ITS | Encounter Summary ---
Author Organization [employer] Address [address] [place] [address] Care Team Providers Care Sheet Metal Mechanic Name Role Phone Unavailable Primary Care Provider Unavailabl e Encounter Details Date Type Department Care Team (Late st Contact Info) Description 01/07/2020 Transcribed Document [facility] Family Medicine [address] [place] [address] ProviderLaury MD [address] [place] [address] [id number] Social History Tobacco Use Types Packs/Day Years Used Date Smoking Tobacco: Never Assessed Comments Unknown Sex and Gender Information Value Date Recorded Sex Assigned at Female 01/12/2022 7:15 PM CDT Legal Sex Female 7:15 PM CDT Gender Identity Female 01/12/2022 7:15 PM CDT Sexual Orientation Not on file documented as of this encounter Miscellaneous Notes * Cerner Conversion Note - Luary Conte MD - 01/07/2020 11:01 AM CDT Patient: FREDDIE ARCHER Age: 29 Years Sex: Female : 1990 Admit Date 01/04/2020 04:47 Discharge Date 01/05/2020 14:12 Primary Care Provider ERIKA PERSAUD MD-INT Discharge Diagnosis Morbid obesity 01/05/2020 E66.01 ICD-10-CM Morbid obesity 01/04/2020 E66.01 ICD-10-CM Procedures SN - Proc - Procedure: Gastrectomy Sleeve Laparoscopic (01/04/20 09:17:21) Reason for Hospitalization is a 29-year-old patient with fpc history of morbid obesity and CKD, has [...] Int Units = 1 Cap, Oral, Weekly [place] 7.5/325 oral every 6 hours as needed for pain. Zofran 8mg oral every 12 hours as needed for nausea. Prilosec 20mg oral daily. Starts tomorrow. [2] Code Status No Code Status Order on Record Condition on Discharge Stable Consulting Physicians LARRY JAIMES MD-ANS Current Diet Order No qualifying data available. Patient Discharge Summary Orders Discharge Follow Up Instructions: followup next weekCall for [id number] Follow Up Instructions: call office on tuesday [...]
--- OUTSIDE RECORDS SUMMARY | 2024-06-11 08:32 | XMS_ITS | Encounter Summary ---
Author Organization [employer] Address [address] [place] [address] Care Team Providers Care Inventory Assistant Name Role Phone Unavailable Primary Care Provider Unavailabl e Encounter Details Date Type Department Care Team (Late st Contact Info) Description 11/19/2018 Transcribed Document [facility] [place] Family [place] [address] [place] [address] ProviderLaury MD [address] [place] [address] [id number] Social History Tobacco Use Types Packs/Day Years [...] Laury ProviderMD - 11/19/2018 1:52 AM CDT [facility] ADDRESS [place], [place] [phone] Name:Crystal Archer Visit Date:11/18/2018 20:06:00 Emergency Department Care Providers: Physician: Clara Elias Phys Asst Physician: Our doctors and staff appreciate your choice of [facility] for your emergency medical care. Read these instructions carefully. Please call us if you have any questions about your medical problem. [facility] [place] [facility] Emergency Department [phone] [facility] Emergency Department [phone] [facility] Emergency Department [phone] Patient Education Materials Gianni Crystal Jones has [...] start to feel better. ??? Only take fsxw-rlc-dhepzot or prescription medicines for pain, discomfort, or [...] 12/20/2008 Document Revised: 12/09/2016 Document Reviewed: 01/29/2014 [email or web address] Interactive Patient Education ? 2017 [employer]. Obstetrics and Gynecology Urinary Tract Infection, Adult Introduction A urinary tract infection (UTI) is an infection of any part of the urinary tract. The urinary tract includes the: ??? Kidneys. ??? Ureters. ??? Bladder. ??? Urethra. These organs make, store, and get rid of pee (urine) in the body. Follow these instructions at home: ??? Take hjby-eus-wsinsny and prescription medicines only as told by [...] x-ray department to pick them up o [facility] [place] [facility] # [phone] o [facility] # [phone] o [facility] # [phone] ?? If you had cultures done and [...] quit. o National Network of Tobacco Cessation [id number]-UUTQ-NOW o [place] [employer] o [place] Heart [employer] [phone] o Sai/Manuel Mccray [phone] FINANCIAL INFORMATION ?? [facility] provides financial counseling to anyone who requests our services. ?? Emergency Physicians are independently contracted to provide your care. You will receive a bill for the care provided to you by the Physician and/or the Physician Sloop Captain. This will be a separate bill from [...] Patient Education Materials: ENT Otitis Media, Adult, Lxki-yn-Qiwq Obstetrics and Gynecology Urinary Tract Infection, Adult, Kbkr-gb-Mklb Follow-Up Instructions: Follow Up With: Where: When: [...] as recommended Patient Signature / or Patient Online Marketing Analyst Provider Signature Date Electronically signed by Zuleyka Byrd Conversion Refrigerated National Truck Driver Cerner at 10/19/2022 11:23 AM CDT documented in this encounter Plan of Treatment Not on file documented as of this encounter Visit Diagnoses Not on filedocumented in this encounter
--- OUTSIDE RECORDS SUMMARY | 2024-06-11 08:32 | XMS_ITS | Encounter Summary ---
Author Organization [employer] Address [address] [place] [address] Care Team Providers Care Materials Planner Name Role Phone Unavailable Primary Care Provider Unavailabl e Encounter Details Date Type Department Care Team (Late st Contact Info) Description 10/31/2018 Transcribed Document [facility] [place] [address] [place] [address] ProviderLaury MD [address] [place] [address] [phone] Social History Tobacco Use Types Packs/Day Years [...] Laury ProviderMD - 10/31/2018 1:17 AM CDT [facility] Emergency Department Depart Summary PERSON INFORMATION Name Crystal Archer Age 28 Years 1990 Sex Female Language PCP Marital Status Phone [phone] Visit Id Visit Reason Specialty Enc Type Emergency Med Service Referred by Track Group [facility] Discharge Tracking Id [id number] Checkout 10/30/2018 21:17:02 Checkin 10/30/2018 20:23:00 Acuity 4 - Non-urgent [facility] Dispo Type Arrival 10/30/2018 20:23:00 Reg Status LOS 000 00:54 Address: [address] [place], [place] [address] [address] POWERFORMS PHYSICIAN NOTES VITALS INFORMATION Vital Sign Triage Temp 99 Temp Route Oral/Mouth Pulse Rate 92 Respiratory Rate 22 Blood Pressure 169/ 99 LOCATION INFORMATION Arrival Nurse Unit Room Bed 10/30/2018 20:23:00 [facility] ED Waitroom ([facility]) 10/30/2018 20:35:06 [facility] ED 9 10/30/2018 21:17:02 [facility] ED Checkout ([facility]) MEDICAL INFORMATION Allergy Info: No [...]
--- OUTSIDE RECORDS SUMMARY | 2024-06-11 08:32 | XMS_ITS | Encounter Summary ---
Author Organization [employer] Address [address] [place] [address] Care Team Providers Care Transport Nurse Name Role Phone Unavailable Primary Care Provider Unavailabl e Encounter Details Date Type Department Care Team (Late st Contact Info) Description 04/25/2019 Abstract [facility] [address] [facility] [address] [place], [place] [phone] Cb Renee MD [address] [facility] [address] [place] [address] Social History Tobacco Use Types Packs/Day Years [...]
--- OUTSIDE RECORDS SUMMARY | 2024-06-11 08:32 | XMS_ITS | Encounter Summary ---
Author Organization [employer] Address [address] [place] [address] Care Team Providers Care Drop Machine Operator Name Role Phone Unavailable Primary Care Provider Unavailabl e Encounter Details Date Type Department Care Team (Late st Contact Info) Description 09/26/2018 Transcribed Document [facility] [address] [place] [address] ProviderLaury MD [address] [place] [address] [phone] Social History Tobacco Use Types Packs/Day Years [...] Laury ProviderMD - 09/26/2018 10:56 PM CDT [facility] [place], [place] [phone] Name:Crystal Archer Visit Date:09/26/2018 16:44:00 Emergency Department Care Providers: Physician: INDIO PEREA Physician: Our doctors and staff appreciate your choice of [facility] for your emergency medical care. Read these instructions carefully. Please call us if you have any questions about your medical problem. [facility] Emergency Department [phone] [facility] Emergency Department [phone] [facility] Emergency Department [phone] Patient Education Materials Crystal Archer has been given the following patient education [...] 07/04/2006 Document Revised: 12/09/2016 Document Reviewed: 03/04/2014 ElseSpearFysh Interactive Patient Education ? 2017 [employer] FOLLOW UP CARE Most conditions that [...] x-ray department to pick them up o [facility] # [phone] o [facility] # [phone] o [facility] # [phone] ?? If you had cultures done and [...] quit. o National Network of Tobacco Cessation SHimlbwze4-092-TEAS-NOW o [place] [employer] o [place] Heart Association [phone] o Sai/Manuel Mccray [phone] FINANCIAL INFORMATION ?? [facility] provides financial counseling to anyone who requests our services. ?? Emergency Physicians are independently contracted to provide your care. You will receive a bill for the care provided to you by the Physician and/or the Physician Senior Sales Representative. This will be a separate bill from [...] as recommended Patient Signature / or Patient Boat Wrapper Provider Signature Date Date/Time 09/26/2018 18:56 Saint [...] oral tablet loratadine 10 mg oral capsule [place] 5 mg-325 mg oral tablet sodium bicarbonate [...]
--- OUTSIDE RECORDS SUMMARY | 2024-06-11 08:32 | XMS_ITS | Encounter Summary ---
Author Organization [employer] Address [address] [place] [address] Care Team Providers Care Exhibit Builder Name Role Phone Unavailable Primary Care Provider Unavailabl e Encounter Details Date Type Department Care Team (Late st Contact Info) Description 11/18/2018 Historic Encounter [address] [address] ProviderJen Historical Social History Tobacco [...] PM EDT) Mucus NONE SEEN NONE, TRACE [facility] Ketones, UA NEGATIVE NEGATIVE [facility] Urobilinogen, UA 0.2 0.2 - 1.0 [facility] SQUAMOUS EPITHELIAL 2-4(A) NONE, 0-2 [facility] Color, UA YELLOW YEL, L. YEL [facility] Amorphous Crystals TRACE NONE, TRACE [facility] Specific Vina, UA 1.020 1.005 - 1.030 [facility] Nitrite, UA NEGATIVE NEGATIVE [facility] Crystals, Urine NONE SEEN NONE SEEN [facility] Clarity, UA CLEAR CLEAR, HAZY [facility] Urinalysis, Other NONE SEEN /HPF [facility] Blood, UA 2+ NEGATIVE [facility] Leukocytes, UA NEGATIVE NEGATIVE [facility] Bacteria, UA 2+(A) NONE, TRACE [facility] Glucose, UA NEGATIVE NEGATIVE [facility] pH, UA 5.5(L) 6.0 - 7.5 [facility] RBC, UA 0-2 NONE, 0-2 [facility] Urine Casts NONE SEEN NONE SEEN [facility] Bilirubin, UA NEGATIVE NEGATIVE [facility] Protein, UA 2+(A) NEGATIVE [facility] WBC, UA 0-5 NONE, 0-5 [facility] 11/18/2018 8:[address] [facility] Historical Provider URINE ORDERABLES Final Result Performing Organization Address City/State/[facility] Co de Phone Number [facility] [address] [phone] * Rapid Strep A screen (11/18/2018 8:23 PM EDT) Strep A Ag NEGATIVE NEGATIVE [facility] 11/18/2018 8:[address] [facility] Historical Provider MICROBIOLOGY - GENERAL ORDERABLES Final Result Performing Organization Address City/[facility]/ZIP Co de Phone Number [facility] [address] [phone] documented in this encounter Visit Diagnoses Not on filedocumented in this encounter
--- OUTSIDE RECORDS SUMMARY | 2024-06-11 08:32 | XMS_ITS | Encounter Summary ---
Author Organization [employer] Address [address] [place] [address] Care Team Providers Care Inside Sales Consultant Name Role Phone Unavailable Primary Care Provider Unavailabl e Encounter Details Date Type Department Care Team (Late st Contact Info) Description 01/04/2020 Transcribed Document [facility] [address] [place] [address] ProviderLaury MD [address] [place], [place] [address] Social History Tobacco Use Types Packs/Day Years [...] Performed On: 01/04/2020 19:04 EDT by Krissy Ellis, RN Chart Check Powerplans Initiated/Discontinued as Appropriate : Yes All Active Orders Reviewed : Yes Krissy Ellis RN - 01/04/2020 19:04 EDT documented in this encounter Plan of Treatment Not on file documented as of this encounter Visit Diagnoses Not on filedocumented in this encounter
--- OUTSIDE RECORDS SUMMARY | 2024-06-11 08:32 | XMS_ITS | Encounter Summary ---
Author Organization [employer] Address [address] [place] [address] Care Team Providers Care Civil Manager Name Role Phone Unavailable Primary Care Provider Unavailabl e Encounter Details Date Type Department Care Team (Late st Contact Info) Description 12/24/2018 Transcribed Document [facility] [address] [place] [address] ProviderLaury MD [address] [place] [address] [phone] Social History Tobacco Use Types Packs/Day Years [...] Laury ProviderMD - 12/24/2018 7:19 PM CDT [facility] ADDR[facility] [place], [place] [phone] Name:Crystal Archer Visit Date:12/24/2018 15:01:00 Emergency Department Care Providers: Physician: MEGHA MAN Physician: Our doctors and staff appreciate your choice of [facility] for your emergency medical care. Read these instructions carefully. Please call us if you have any questions about your medical problem. [facility] Emergency Department [phone] [facility] Emergency Department [phone] [facility] Emergency Department [phone] Patient Education Materials Crystal Archersil has been [...] Medicines may be prescribed or be available pydw-uws-asgiwzu. The medicines may be: ??? Taken by mouth (orally). ??? Applied as a cream. Follow these instructions at home: ??? Take or apply ulyd-wio-tatwnmc and prescription medicines only as told by [...] 03/21/2012 Document Revised: 02/27/2017 Document Reviewed: 01/05/2016 AudioEye Interactive Patient Education ? 2019 [employer] FOLLOW UP CARE Most conditions that [...] x-ray department to pick them up o [facility] # [phone] o [facility] # [phone] o [facility] # [phone] ?? If you had cultures done and [...] quit. o National Network of Tobacco Cessation FYlfwldcc7-171-NFCD-NOW o [place] Lung Association o [place] Heart Association [phone] o Sai/Manuel Mccray [phone] FINANCIAL INFORMATION ?? [facility] provides financial counseling to anyone who requests our services. ?? Emergency Physicians are independently contracted to provide your care. You will receive a bill for the care provided to you by the Physician and/or the Physician Rope Twisting Machine Operator. This will be a separate bill [...] as recommended Patient Signature / or Patient Room Attendants Provider Signature Date Date/Time 12/24/2018 15:19 Saint [...]
--- OUTSIDE RECORDS SUMMARY | 2024-06-11 08:32 | XMS_ITS | Encounter Summary ---
Author Organization [employer] Address [address] [place] [address] Care Team Providers Care Roller Bearing Inspector Name Role Phone Unavailable Primary Care Provider Unavailabl e Encounter Details Date Type Department Care Team (Late st Contact Info) Description 01/08/2019 Transcribed Document [facility] [place] Medicine [address] [place] [address] ProviderLaury MD [address] [place] [address] [phone] Social History Tobacco Use Types Packs/Day Years [...] Conversion Note - Laury Conte MD - 01/08/2019 12:31 AM CDT [facility] [place], [place] [phone] Name:Crystal Archer Visit Date:01/07/2019 18:52:00 Emergency Department Care Providers: Physician: Physician: Our doctors and staff appreciate your choice of [facility] for your emergency medical care. Read these instructions carefully. Please call us if you have any questions about your medical problem. [facility] Emergency Department [phone] [facility] Emergency Department [phone] [facility] Emergency Department [phone] Patient Education Materials Crystal Archer has been [...] x-ray department to pick them up o [facility] # [phone] o [facility] # [phone] o [facility] # [phone] ?? If you had cultures done and [...] quit. o National Network of Tobacco Cessation ZUmoqmngp9-842-DSUK-NOW o [place] Lung Association o [place] Heart Association [phone] o Sai/Manuel Mahendra [phone] FINANCIAL INFORMATION ?? [facility] provides financial counseling to anyone who requests our services. ?? Emergency Physicians are independently contracted to provide your care. You will receive a bill for the care provided to you by the Physician and/or the Physician Green Ware Caster. This will be a separate bill from [...] as recommended Patient Signature / or Patient Dye Machine Operator Provider Signature Date Electronically signed by Zuleyka Byrd Conversion Information Systems Auditor Sandraner at 10/19/2022 11:23 AM CDT documented in this encounter Plan of Treatment Not on file documented as of this encounter Visit Diagnoses Not on filedocumented in this encounter
--- OUTSIDE RECORDS SUMMARY | 2024-06-11 08:32 | XMS_ITS | Encounter Summary ---
Author Organization [employer] Address [address] [place] [address] Care Team Providers Care Buffet Waiter/Waitress Name Role Phone Unavailable Primary Care Provider Unavailabl e Encounter Details Date Type Department Care Team (Late st Contact Info) Description 01/04/2020 Transcribed Document [facility] [place] Medicine [address] [place] [address] ProviderLaury MD [address] [place] [address] [phone] Social History Tobacco Use Types Packs/Day Years [...] Laparoscopic sleeve gastrectomy SURGEON: Xavi Mejia M.D. POLL WATCHER: Daniel steinberg MD ANESTHESIA: General. SPECIMEN: Stomach. INDICATION FOR PROCEDURE: is a 29-year-old patient with lobsterman history of morbid obesity and CKD, has [...] was done, we proceeded to place the 54-Comoran bougie down the esophagus into the stomach under direct visualization. When it was in the antrum, we proceeded to staple the stomach in a parallel manner to the greater curvature, creating a sleeve gastrectomy using the [place] stapler. We used green loads, all reinforced [...]
--- OUTSIDE RECORDS SUMMARY | 2024-06-11 08:32 | XMS_ITS | Encounter Summary ---
Author Organization [employer] Address [address] [place] [address] Care Team Providers Care Case Sealer Name Role Phone Unavailable Primary Care Provider Unavailabl e Encounter Details Date Type Department Care Team (Late st Contact Info) Description 01/05/2020 Transcribed Document [facility] [place] [address] [place] [address] ProviderLaury MD [address] [place] [address] Social History Tobacco Use Types [...] your book, please call the Center at [phone]. documented in this encounter Plan of Treatment Not on file documented as of this encounter Visit Diagnoses Not on filedocumented in this encounter
--- OUTSIDE RECORDS SUMMARY | 2024-06-11 08:32 | XMS_ITS | Encounter Summary ---
Author Organization [employer] Address [address] [place] [address] Care Team Providers Care Guest Room Inspector Name Role Phone Unavailable Primary Care Provider Unavailabl e Encounter Details Date Type Department Care Team (Late st Contact Info) Description 01/19/2020 Transcribed Document [facility] [address] [place] [address] ProviderLaury MD [address] [place] [address] [phone] Social History Tobacco Use Types Packs/Day Years [...] OCTAVIO BRAND RN - 01/19/2020 15:30 EDT documented in this encounter Plan of Treatment Not on file documented as of this encounter Visit Diagnoses Not on filedocumented in this encounter
--- OUTSIDE RECORDS SUMMARY | 2024-06-11 08:32 | XMS_ITS | Encounter Summary ---
Author Organization [employer] Address [address] [place] [address] Care Team Providers Care Hogshead Packer Name Role Phone Unavailable Primary Care Provider Unavailabl e Encounter Details Date Type Department Care Team (Late st Contact Info) Description 08/24/2019 Transcribed Document [facility] [place] [address] [place] [address] ProviderLaury MD [address] [place] [address] Social History Tobacco Use Types Packs/Day [...] Cerner Conversion Note - Laury ProviderMD - 08/24/2019 2:30 PM INKJET OPERATOR [facility] PreOp Summary Primary Physician: LARRY MARTINES MD-BRANDEE Finalized Date/Time: 08/24/19 10:30:24 Pt. Name: FREDDIE ARCHERGARCIA /Sex: 1990 Female Med Rec #: [id number] Physician: LARRY MARTINES MD-BRANDEE Financial #: [id number] Pt. Type: O Room/Bed: [facility] Admit/Disch: 08/24/19 09:42:00 - Institution: [facility] PreOp Case Times Entry 1 In Preop 08/24/19 10:06:00 Ready for Holding n/a Room Patient Ready for 08/24/19 10:30:00 Surgery Patient Out of Preop 08/24/19 10:30:00 Patient Out of n/a Holding Room [facility] PreOp Case Times Audit 08/24/19 10:30:23 Practice Assistant: CECILEGiacomo Modifier: HOLMESTJ <+> 1 Patient Out of Preop <+> 1 Patient Ready for Surgery Finalized By: ANGE Green RN Document Signatures Signed By: ANGE Green RN 08/24/19 10:30 documented in this encounter Plan of Treatment Not on file documented as of this encounter Visit Diagnoses Not on filedocumented in this encounter
--- OUTSIDE RECORDS SUMMARY | 2024-06-11 08:32 | XMS_ITS | Encounter Summary ---
Author Organization [employer] Address [address] [place] [address] Care Team Providers Care Manager Account Management Name Role Phone Unavailable Primary Care Provider Unavailabl e Encounter Details Date Type Department Care Team (Late st Contact Info) Description 01/18/2020 Transcribed Document [facility] [place] [address] [place] [address] ProviderLaury MD [address] [place] [address] [phone] Social History Tobacco Use Types Packs/Day Years [...] Laury ProviderMD - 01/18/2020 8:28 PM CDT Christian Suicide Severity Rating Scale (C-SSRS) Entered On: 01/18/2020 21:29 EDT Performed On: 01/18/2020 21:29 EDT by JASON FUENTES RN Christian Suicide Severity Rating Scale (C-SSRS) CSSRS Past Month Wish to be : No CSSRS Past Month Suicidal Thoughts : No CSSRS Lifetime Suicide Behavior : No Suicide Severity Rating Score : 0 Suicide Severity Rating : No Additional Care Required at this time JASON FUENTES, HERNÁN - 01/18/2020 21:29 EDT documented in this encounter Plan of Treatment Not on file documented as of this encounter Visit Diagnoses Not on filedocumented in this encounter
--- OUTSIDE RECORDS SUMMARY | 2024-06-11 08:32 | XMS_ITS | Encounter Summary ---
Author Organization [employer] Address [address] [place] [address] Care Team Providers Care Health Practice Manager Name Role Phone Unavailable Primary Care Provider Unavailabl e Encounter Details Date Type Department Care Team (Late st Contact Info) Description 01/19/2020 Transcribed Document [facility] Family Medicine [address] [place] [address] ProviderLaury MD [address] [place] [address] [phone] Social History Tobacco Use Types Packs/Day Years [...] Physician Requested for Consult : LARRY MARTINES MD-SUR Physician Covering for Consult : LARRY MARTINES MD-SUR Date and Time Call Returned : 01/19/2020 9:04 EDT CARMELITAASPEN DESAI K - 01/19/2020 9:04 EDT documented in this encounter Plan of Treatment Not on file documented as of this encounter Visit Diagnoses Not on filedocumented in this encounter
--- OUTSIDE RECORDS SUMMARY | 2024-06-11 08:32 | XMS_ITS | Encounter Summary ---
Author Organization [employer] Address [address] [place] [address] Care Team Providers Care Guest Experience Captain Name Role Phone Unavailable Primary Care Provider Unavailabl e Encounter Details Date Type Department Care Team (Late st Contact Info) Description 01/04/2020 Transcribed Document [facility] [place] [address] [place] [address] ProviderLaury MD [address] [place] [address] Social History Tobacco Use Types Packs/Day [...] Policy Numbers : Insurance 1 Health Plan: [facility] Policy Number: [id number] Authorization Number: [id number] Insurance Primary Name : [facility] Policy Number: [id number] Authorization Status-Primary : Admit approved Reference Number-Primary : [id number] Authorization Number-Primary : [id number] Number of Days Authorized-Primary : 0 Day(s) Authorized Service Begin Date-Primary : 01/04/2020 EDT Authorized Service End Date-Primary : 01/04/2020 EDT Historical Authorization Comments-Primary : Comment 1: [employer] approved per website for 1 day inpt (MANOJ HWANG RN-Utilization Review 12/28/2019 11:50) MANOJ HWANG RN-Utilization Review - 01/04/2020 14:12 EDT Electronically signed by Rochelle [facility] Conversion Group Work Program Aide Cerner at 11/02/2022 10:15 AM CDT documented in this encounter Plan of Treatment Not on file documented as of this encounter Visit Diagnoses Not on filedocumented in this encounter
--- OUTSIDE RECORDS SUMMARY | 2024-06-11 08:32 | XMS_ITS | Encounter Summary ---
Author Organization [employer] Address [address] [place] [address] Care Team Providers Care Customer Training Specialist Name Role Phone Unavailable Primary Care Provider Unavailabl e Encounter Details Date Type Department Care Team (Late st Contact Info) Description 01/05/2020 Transcribed Document [facility] [place] [address] [place] [address] ProviderLaury MD [address] [place] [address] [phone] Social History Tobacco Use Types Packs/Day Years [...] On: 01/05/2020 8:27 EDT by CRISTOBAL HANSEN, RN-Au Pair Initial Assessment I Previously Documented Living Environment [...] have PCP Listed? : Yes CRISTOBAL HANSEN RN-Au Pair - 01/05/2020 8:27 EDT Initial Assessment II [...] : Discharge transportation, Outpatient services CRISTOBAL HANSEN RN-Care Manager - 01/05/2020 8:27 EDT Narrative Note Narrative Note : Patient underwent laparoscopic gastrectomy sleeve. Lives at home with family, iADLs. [place], no services needed..................sds CRISTOBAL HANSEN RN-Au Pair - 01/05/2020 8:27 EDT documented in this encounter Plan of Treatment Not on file documented as of this encounter Visit Diagnoses Not on filedocumented in this encounter
--- OUTSIDE RECORDS SUMMARY | 2024-06-11 08:32 | XMS_ITS | Encounter Summary ---
Author Organization [employer] Address [address] [place] [address] Care Team Providers Care Education Administrative Assistant Name Role Phone Unavailable Primary Care Provider Unavailabl e Encounter Details Date Type Department Care Team (Late st Contact Info) Description 12/28/2019 Transcribed Document [facility] [place] [address] [place] [address] ProviderLaury MD [address] [place] [address] [phone] Social History Tobacco Use Types Packs/Day Years [...] Conversion Note - Laury Conte MD - 12/28/2019 11:50 AM CDT [facility] Authorization Entered On: 12/28/2019 11:51 EDT Performed On: 12/28/2019 11:50 EDT by MANOJ HWANG RN-Utilization Review Primary Insurance Authorization Authorization and Policy Numbers : Insurance 1 Health Plan: [facility] Policy Number: [id number] Authorization Number: Insurance Primary Name : [facility] Policy Number: [id number] Authorization Status-Primary : Admit approved Reference Number-Primary : [id number] Authorization Number-Primary : [id number] Number of Days Authorized-Primary : 0 Day(s) Authorized Service Begin Date-Primary : 01/04/2020 EDT Authorized Service End Date-Primary : 01/04/2020 EDT Authorization Comments-Primary : [employer] approved per website for 1 day inpt Historical Authorization Comments-Primary : No Authorization Comments Found MANOJ HWANG RN-Utilization Review - 12/28/2019 11:50 EDT Electronically signed by Zuleyka Bydr Conversion Insurance Application Investigator Cerner at 11/02/2022 10:05 AM CDT documented in this encounter Plan of Treatment Not on file documented as of this encounter Visit Diagnoses Not on filedocumented in this encounter
--- OUTSIDE RECORDS SUMMARY | 2024-06-11 08:32 | XMS_ITS | Encounter Summary ---
Author Organization [employer] Address [address] [place] [address] Care Team Providers Care Electric Transfer Operator Name Role Phone Unavailable Primary Care Provider Unavailabl e Encounter Details Date Type Department Care Team (Late st Contact Info) Description 07/09/2019 Abstract [facility] [address] [facility] [address] [place], [place] [phone] Cb Renee MD [address] [facility] [address] [place] [address] Social History Tobacco Use Types Packs/Day Years [...]
--- OUTSIDE RECORDS SUMMARY | 2024-06-11 08:32 | XMS_ITS | Encounter Summary ---
Author Organization [employer] Address [address] [place] [address] Care Team Providers Care Continuous Mining Machine Company Miner Name Role Phone Unavailable Primary Care Provider Unavailabl e Encounter Details Date Type Department Care Team (Late st Contact Info) Description 12/24/2018 Transcribed Document [facility] [place] Family Medicine [address] [place] [address] ProviderLaury MD [address] [place] [address] [id number] Social History Tobacco Use Types Packs/Day Years [...] Laury ProviderMD - 12/24/2018 7:19 PM CDT [facility] Emergency Department Depart Summary PERSON INFORMATION Name Crystal Archer Age 28 Years 1990 Sex Female Language PCP Marital Status Phone [id number] Visit Id Visit Reason Specialty Enc Type Emergency Med Service Referred by Track Group [facility] Discharge Tracking Id [id number] Checkout 12/24/2018 15:19:27 Checkin 12/24/2018 15:01:00 Acuity 4 - Non-urgent [facility] Dispo Type Arrival 12/24/2018 15:01:00 Reg Status LOS 000 00:18 Address: [address] [place], [place] [address]T [facility] [place] [address] POWERFORMS PHYSICIAN NOTES VITALS INFORMATION Vital Sign Triage Temp 98.6 Temp Route Oral/Mouth Pulse Rate 101 Respiratory Rate 20 Blood Pressure 179/ 89 LOCATION INFORMATION Arrival Nurse Unit Room Bed 12/24/2018 15:01:00 [facility] ED Waitroom ([facility]) 12/24/2018 15:04:15 [facility] ED 1 12/24/2018 15:19:27 [facility] ED Checkout ([facility]) MEDICAL INFORMATION Allergy Info: No Known [...]
--- OUTSIDE RECORDS SUMMARY | 2024-06-11 08:32 | XMS_ITS | Encounter Summary ---
Author Organization [employer] Address [address] [place] [address] Care Team Providers Care Aluminum Boat Inspector Name Role Phone Unavailable Primary Care Provider Unavailabl e Encounter Details Date Type Department Care Team (Late st Contact Info) Description 12/24/2018 Transcribed Document [facility] Family Medicine [address] [place] [address] ProviderLaury MD [address] [place] [address] [id number] Social History Tobacco Use Types Packs/Day Years [...] Laury ProviderMD - 12/24/2018 7:19 PM CDT [facility] ADDRESS [place], [place] [phone] Name:Crystal Archer Visit Date:12/24/2018 15:01:00 Emergency Department Care Providers: Physician: MEGHA MAN Physician: Our doctors and staff appreciate your choice of [facility] for your emergency medical care. Read these instructions carefully. Please call us if you have any questions about your medical problem. [facility] [place] [facility] Emergency Department [phone] [facility] Emergency Department [phone] [facility] Emergency Department [phone] Patient Education Materials Crystal Archersil has been [...] Medicines may be prescribed or be available yasj-tmr-ugzlouc. The medicines may be: ??? Taken by mouth (orally). ??? Applied as a cream. Follow these instructions at home: ??? Take or apply xblm-imq-sjwjcbz and prescription medicines only as told by [...] 03/21/2012 Document Revised: 02/27/2017 Document Reviewed: 01/05/2016 [employer] Interactive Patient Education ? 2019 [employer] FOLLOW UP CARE Most conditions that [...] o [facility] [place] [facility] # [phone] o [facility] # [phone] o [facility] # [phone] ?? If you had cultures done and [...] quit. o National Network of Tobacco Cessation [id number]-[id number]-NOW o [place] Lung Association o [place] Heart Association [phone] o Sai/Manuel Mccray [phone] FINANCIAL INFORMATION ?? [facility] provides financial counseling to anyone who requests our services. ?? Emergency Physicians are independently contracted to provide your care. You will receive a bill for the care provided to you by the Physician and/or the Physician Dean Of Education. This will be a separate bill from [...] recommended Patient Signature / or Patient Director Nursery School Provider Signature Date Electronically signed by Interface, [facility] Conversion Power Equipment Technology Instructor Cerner at 10/19/2022 11:23 AM CDT documented in this encounter Plan of Treatment Not on file documented as of this encounter Visit Diagnoses Not on filedocumented in this encounter
--- OUTSIDE RECORDS SUMMARY | 2024-06-11 08:32 | XMS_ITS | Encounter Summary ---
Author Organization [employer] Address [address] [place] [address] Care Team Providers Care Photographer Still Name Role Phone Unavailable Primary Care Provider Unavailabl e Encounter Details Date Type Department Care Team (Late st Contact Info) Description 12/24/2018 Transcribed Document [facility] [place] [address] [place] [address] ProviderLaury MD [address] [place] [address] [phone] Social History Tobacco Use Types Packs/Day Years [...] - Non-urgent BBK Tracking Group : BBK WrangellMaddi Parker - 12/24/2018 15:05 EDT ED Visit Reason : Rash Primary Care Provider : Rema Ferreira, Railroad Car Cleaning Supervisor Accompanied By : Family/Spouse/SO Arrival Mode [...] : No GI 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 : No Registry Rn Hx : No Heart Attack : No [...] Source : Stated Height Entry Format : [place] Height, Inches : 65 Inch(Converted to: 5 ft 5 Inch, 165.10 cm) Clinical Height : 165.1 cm Weight Source : Bed scale Weight Entry Format : [place] Weight, Pounds : 221 lb Clinical Dosing Weight : 100.45 kg Body Surface Area-(BSA) : 2.15 m2 Body Mass Index : 36.9 kg/m2 (HI) [place] Body Weight : 57 kg Maddi Tomlin [...]
--- OUTSIDE RECORDS SUMMARY | 2024-06-11 08:32 | XMS_ITS | Encounter Summary ---
Author Organization [employer] Address [address] [place] [address] Care Team Providers Care Retail Experience Specialist Name Role Phone Unavailable Primary Care Provider Unavailabl e Encounter Details Date Type Department Care Team (Late st Contact Info) Description 01/19/2020 Transcribed Document [facility] [place] [address] [place] [address] ProviderLaury MD [address] [place] [address] [phone] Social History Tobacco Use Types Packs/Day Years [...] - 01/19/2020 16:16 EDT Electronically signed by [facility] Conversion Director Of Human Resources Cerner at 11/02/2022 9:56 AM CDT documented in this encounter Plan of Treatment Not on file documented as of this encounter Visit Diagnoses Not on filedocumented in this encounter
--- OUTSIDE RECORDS SUMMARY | 2024-06-11 08:32 | XMS_ITS | Encounter Summary ---
Author Organization [employer] Address [address] [place] [address] Care Team Providers Care Round Corner Cutter Operator Name Role Phone Unavailable Primary Care Provider Unavailabl e Encounter Details Date Type Department Care Team (Late st Contact Info) Description 11/19/2018 Transcribed Document [facility] [place] [address] [place] [address] ProviderLaury MD [address] [place] [address] [phone] Social History Tobacco Use Types Packs/Day Years [...] Laury ProviderMD - 11/19/2018 1:52 AM CDT [facility] ADDRESS [place], [place] [phone] Name:Crystal Archer Visit Date:11/18/2018 20:06:00 Emergency Department Care Providers: Physician: Clara Elias Phys Asst Physician: Our doctors and staff appreciate your choice of [facility] for your emergency medical care. Read these instructions carefully. Please call us if you have any questions about your medical problem. [facility] Emergency Department [phone] [facility] Emergency Department [phone] [facility] Emergency Department [phone] Patient Education Materials Gianni Crystal Jones has [...] start to feel better. ??? Only take porx-hlu-hljfxjf or prescription medicines for pain, discomfort, or [...] 12/20/2008 Document Revised: 12/09/2016 Document Reviewed: 01/29/2014 [employer] Interactive Patient Education ? 2017 [employer]. Obstetrics and Gynecology Urinary Tract Infection, Adult Introduction A urinary tract infection (UTI) is an infection of any part of the urinary tract. The urinary tract includes the: ??? Kidneys. ??? Ureters. ??? Bladder. ??? Urethra. These organs make, store, and get rid of pee (urine) in the body. Follow these instructions at home: ??? Take rkdf-jwt-fcpsapv and prescription medicines only as told by [...] x-ray department to pick them up o [facility] # [phone] o [facility] # [phone] o [facility] # [phone] ?? If you had cultures done and [...] quit. o National Network of Tobacco Cessation [id number]-BDBE-NOW o [employer] Lung Association o [place]ales[place] Heart Association [phone] o Sai/Manuel Mccray [phone] FINANCIAL INFORMATION ?? [facility] provides financial counseling to anyone who requests our services. ?? Emergency Physicians are independently contracted to provide your care. You will receive a bill for the care provided to you by the Physician and/or the Physician Crossbar Switch Adjuster. This will be a separate bill from [...] Patient Education Materials: ENT Otitis Media, Adult, Efbh-qk-Thar Obstetrics and Gynecology Urinary Tract Infection, Adult, Uiri-lm-Owjz Follow-Up Instructions: Follow Up With: Where: When: Follow up with primary care provider Within 1-2 days Comments: Follow Up With: Where: When: Return to Emergency Department Within As needed Comments: Neelima Gianni Crystal Karen, have received a copy of these discharge instructions and acknowledge understanding of these instructions. . I understand that my condition may require more care and will arrange for further treatment as recommended Patient Signature / or Patient Slat Basket Maker Provider Signature Date Date/Time 11/18/2018 21:52 [facility] [...]
--- OUTSIDE RECORDS SUMMARY | 2024-06-11 08:32 | XMS_ITS | Encounter Summary ---
Author Organization [employer] Address [address] [place] [address] Care Team Providers Care Senior Recruitment Consultant Name Role Phone Unavailable Primary Care Provider Unavailabl e Encounter Details Date Type Department Care Team (Late st Contact Info) Description 01/08/2019 Transcribed Document [facility] [place] [address] [place] [address] ProviderLaury MD [address] [place] [address] [phone] Social History Tobacco Use Types Packs/Day Years [...] Conte MD - 01/08/2019 12:31 AM CDT [facility] ADDRESS [place], [place] [phone] Name:Crystal Archer Visit Date:01/07/2019 18:52:00 Emergency Department Care Providers: Physician: Physician: Our doctors and staff appreciate your choice of [facility] for your emergency medical care. Read these instructions carefully. Please call us if you have any questions about your medical problem. [facility] Emergency Department [phone] [facility] Emergency Department [phone] [facility] Emergency Department [phone] Patient Education Materials Crystal Archer has been [...] department to pick them up o [facility] # [phone] o [facility] # [phone] o [facility] # [phone] ?? If you had cultures done and [...] quit. o National Network of Tobacco Cessation [id number]-CWFH-NOW o [place] Lung Association o [place]uv[place] Heart Association [phone] o Sai/Manuel Mccray [phone] FINANCIAL INFORMATION ?? [facility] provides financial counseling to anyone who requests our services. ?? Emergency Physicians are independently contracted to provide your care. You will receive a bill for the care provided to you by the Physician and/or the Physician Special Procedure Tech. This will be a separate bill from [...] as recommended Patient Signature / or Patient Manager Of Financial Planning Provider Signature Date Date/Time 01/07/2019 20:31 [facility] Name Crystal [...]
--- OUTSIDE RECORDS SUMMARY | 2024-06-11 08:32 | XMS_ITS | Encounter Summary ---
Author Organization [employer] Address [address] [place] [address] Care Team Providers Care Chauffeur Name Role Phone Unavailable Primary Care Provider Unavailabl e Encounter Details Date Type Department Care Team (Late st Contact Info) Description 01/04/2020 Abstract [facility] Bariatric Services [address] [place] [address] Xavi Mejia MD [address] [facility] [address] [place] [address] Social History Tobacco Use Types Packs/Day Years [...]
--- OUTSIDE RECORDS SUMMARY | 2024-06-11 08:32 | XMS_ITS | Encounter Summary ---
Author Organization [employer] Address [address] [place] [address] Care Team Providers Care Valve Inserter Name Role Phone Unavailable Primary Care Provider Unavailabl e Encounter Details Date Type Department Care Team (Late st Contact Info) Description 09/26/2018 Transcribed Document [facility] [place] [place] [address] [place] [address] ProviderLaury MD [address] [place] [address] [phone] Social History Tobacco Use Types Packs/Day Years [...] 3 - Urgent BBK Tracking Group : Marry Le 09/26/2018 16:51 EDT ED Visit Reason : Urinary/Voiding Complaints Primary Care Provider : Rema Ferreira, Junior Database Administrator Accompanied By : Family/Spouse/SO Arrival Mode : [...] : No GI 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 : No Welfare Worker Hx : No Heart Attack : [...] History : No Pathway Planning : No Dre Marry R 09/26/2018 16:51 EDT Temp : 98.7 Deg [...] Preferred Communication Mode : Verbal Languages : Niuean Child/Parent Domestic Concerns : None Threats of Suicide : No Dre, Marry Restrepo 09/26/2018 16:51 EDT Height and Weight Height Source : Stated Height Entry Format : [place] Height, Inches : 65 Inch(Converted to: 5 ft 5 Inch, 165.10 cm) Clinical Height : 165.1 cm Weight Source : Stated Type of Weight Measurement Est : Hickman Weight, est lb : 213 lb Estimated Clinical Dosing Weight : 96.82 kg [place] Body Weight : 57 kg Body Surface [...] ; Status: Documented ; Ordered As Mnemonic: [place] 5 mg-325 mg oral tablet ; Simple [...]
--- OUTSIDE RECORDS SUMMARY | 2024-06-11 08:32 | XMS_ITS | Encounter Summary ---
Author Organization [employer] Address [address] [place] [address] Care Team Providers Care Motor Vehicle Parts Interpreter Name Role Phone Unavailable Primary Care Provider Unavailabl e Encounter Details Date Type Department Care Team (Late st Contact Info) Description 01/05/2020 Transcribed Document [facility] [place] Family [place] [address] [place] [address] ProviderLaury MD [address] [place] [address] [phone] Social History Tobacco Use Types Packs/Day Years [...] Mickey Fuentes RN - 01/05/2020 7:38 EDT documented in this encounter Plan of Treatment Not on file documented as of this encounter Visit Diagnoses Not on filedocumented in this encounter
--- OUTSIDE RECORDS SUMMARY | 2024-06-11 08:32 | XMS_ITS | Encounter Summary ---
Author Organization [employer] Address [address] [place] [address] Care Team Providers Care Manager Staffing Name Role Phone Unavailable Primary Care Provider Unavailabl e Encounter Details Date Type Department Care Team (Late st Contact Info) Description 10/31/2018 Transcribed Document [facility] [place] Family Medicine [address] [place] [address] ProviderLaury MD [address] [place] [address] [phone] Social History Tobacco Use Types Packs/Day Years [...] Laury ProviderMD - 10/31/2018 1:17 AM CDT [facility] ADDRESS [place], [place] [phone] Name:Crystal Archer Visit Date:10/30/2018 20:23:00 Emergency Department Care Providers: Physician: MEGHA MAN Physician: Our doctors and staff appreciate your choice of [facility] for your emergency medical care. Read these instructions carefully. Please call us if you have any questions about your medical problem. [facility] Emergency Department [phone] [facility] Emergency Department [phone] [facility] Emergency Department [phone] Patient Education Materials Crystal Archersil has been [...] 10/19/2011 Document Revised: 11/11/2016 Document Reviewed: 06/30/2015 [employer] Interactive Patient Education ? 2017 [employer] Inc. FOLLOW UP CARE Most conditions that [...] x-ray department to pick them up o [facility] # [phone] o [facility] # [phone] o [facility] # [phone] ?? If you had cultures done and [...] quit. o National Network of Tobacco Cessation [id number]-QONF-NOW o [place] Lung Association o Northern [place] Heart Association [phone] o Sai/Manuel Mccray [phone] FINANCIAL INFORMATION ?? [facility] provides financial counseling to anyone who requests our services. ?? Emergency Physicians are independently contracted to provide your care. You will receive a bill for the care provided to you by the Physician and/or the Physician Manager Agricultural. This will be a separate bill from [...] as recommended Patient Signature / or Patient Quarrying Manager Provider Signature Date documented in this encounter Plan of Treatment Not on file documented as of this encounter Visit Diagnoses Not on filedocumented in this encounter
--- OUTSIDE RECORDS SUMMARY | 2024-06-11 08:32 | XMS_ITS | Encounter Summary ---
Author Organization [employer] Address [address] [place] [address] Care Team Providers Care Assembler Adjuster Name Role Phone Unavailable Primary Care Provider Unavailabl e Encounter Details Date Type Department Care Team (Late st Contact Info) Description 11/19/2018 Transcribed Document [facility] [place] [address] [place] [address] ProviderLaury MD [address] [place] [address] [phone] Social History Tobacco Use Types Packs/Day Years [...] - Non-urgent BBK Tracking Group : BBK Marry Ramírez 11/18/2018 20:14 EDT ED Visit Reason : [...] : No GI 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 : No Paint Laboratory Technician Hx : No Heart Attack : No [...] seeind cancer doc on 12/12/17 Marry Erickson R 11/18/2018 20:14 EDT Temp : 99.0 Deg [...] Preferred Communication Mode : Verbal Languages : Senegalese Child/Parent Domestic Concerns : None Threats of Suicide : No Marry Erickson 11/18/2018 20:14 EDT Height and Weight Height Source : Stated Height Entry Format : [place] Height, Inches : 65 Inch(Converted to: 5 ft 5 Inch, 165.10 cm) Clinical Height : 165.1 cm Weight Source : Bed scale Weight Entry Format : [place] Weight, Pounds : 220 lb Clinical Dosing Weight : 100 kg Body Surface Area-(BSA) : 2.14 m2 Body Mass Index : 36.7 kg/m2 (HI) [place] Body Weight : 57 kg Marry Erickson [...] EDT Electronically signed by Zuleyka Byrd Conversion Certified Meeting Professional Cerner at 10/19/2022 11:23 AM CDT documented in this encounter Plan of Treatment Not on file documented as of this encounter Visit Diagnoses Not on filedocumented in this encounter
--- OUTSIDE RECORDS SUMMARY | 2024-06-11 08:32 | XMS_ITS | Encounter Summary ---
Author Organization [employer] Address [address] [place] [address] Care Team Providers Care Environmental Attorney Name Role Phone Unavailable Primary Care Provider Unavailabl e Encounter Details Date Type Department Care Team (Late st Contact Info) Description 01/07/2019 Transcribed Document [facility] Family Medicine [address] [place] [address] ProviderLaury MD [address] [place] [address] [phone] Social History Tobacco Use Types Packs/Day Years [...] 3 - Urgent BBK Tracking Group : GM ReardanPearl Naqvi 01/07/2019 19:08 EDT ED Visit Reason : [...] : No GI 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 : No Scrap Sorter Hx : No Heart Attack : No [...] seeind cancer doc on 12/12/17 Pearl Waller 01/07/2019 19:08 EDT Temp : 99.4 Deg [...] Source of Information : Patient Pearl Waller 01/07/2019 19:08 EDT Medication List (As Of: [...]
--- OUTSIDE RECORDS SUMMARY | 2024-06-11 08:32 | XMS_ITS | Encounter Summary ---
Author Organization [employer] Address [address] [place] [address] Care Team Providers Care Shroud Line Tier Name Role Phone Unavailable Primary Care Provider Unavailabl e Encounter Details Date Type Department Care Team (Late st Contact Info) Description 01/19/2020 Transcribed Document [facility] [place] Family [place] [address] [place] [address] ProviderLaury MD [address] [place] [address] [phone] Social History Tobacco Use Types Packs/Day Years [...] documented in chart. Surgical history: section x2 ([id number]). Dilation and curettage (36613776). Tubal ligation ([id number]). wisdom teeth. kidney biopsy. EGD. Stomach biopsy. Gastric sleeve ([id number]).. Family history: Not significant, No family history [...] EDT Height Source Stated Height Entry Format [place] Height/Length, YAKUT (ft) 5 ft Height/Length YAKUT 5 Inch CLINICALHEIGHT 165.1 cm [place] Body Weight 56.59 kg Weight Source, ED Standing scale Weight Entry Format [place] Weight Colombian lb 230.8 lb CLINICALWEIGHT 104.91 kg Body [...] 39.0 % Lymph # 3.92 K/uL HI Henry % 7.3 % Henry # 0.73 K/uL Eos % 2.4 % Eos # 0.24 K/uL Baso % 0.4 % Baso # 0.04 K/uL Slide Review No IG# 0 x10(3)/uL IG% 0 % . Notes: Preliminary ReportNAME:FREDDIE ARCHER / SEX:1990 / FemaleMRN / ACC#:[id number] / [id number] ORDERING PHYSICIAN:Ordering Provider, UpdateEXAM REQUESTED:[id number]--XA ABDOMEN & PELVIS W/O CONTRAST [facility]OLOG[facility] NAME:MD Ashely[facility]:status post gastric sleeve surgery on [...] No rash, no cyanosis, capillary refill brisk CASTINGS DRAFTER: Awake alert oriented ??4, nonfocal exam Psych: [...] Calls-Consults - 01/19/2020 01:08:00 , LARRY MARTINES MD-BARNDEE, phone call, recommends will admit pt. - [...]
--- OUTSIDE RECORDS SUMMARY | 2024-06-11 08:32 | XMS_ITS | Encounter Summary ---
Author Organization [employer] Address [address] [place] [address] Care Team Providers Care Bobbin Drier Name Role Phone Unavailable Primary Care Provider Unavailabl e Encounter Details Date Type Department Care Team (Late st Contact Info) Description 01/05/2020 Transcribed Document [facility] [place] Family Medicine [address] [place] [address] ProviderLaury MD [address] [place] [address] [phone] Social History Tobacco Use Types Packs/Day Years [...]
--- OUTSIDE RECORDS SUMMARY | 2024-06-11 08:32 | XMS_ITS | Encounter Summary ---
Author Organization [employer] Address [address] [place] [address] Care Team Providers Care Freelance Digital Project Manager Name Role Phone Unavailable Primary Care Provider Unavailabl e Encounter Details Date Type Department Care Team (Late st Contact Info) Description 11/19/2018 Transcribed Document [facility] [place] [address] [place] [address] ProviderLaury MD [address] [place] [address] [id number] Social History Tobacco Use Types Packs/Day Years [...] Laury ProviderMD - 11/19/2018 1:52 AM CDT [facility] Emergency Department Depart Summary PERSON INFORMATION Name Crystal Archer Age 28 Years 1990 Sex Female Language PCP Marital Status Phone [phone] Visit Id Visit Reason Specialty Enc Type Emergency Med Service Referred by Track Group [facility] Discharge Tracking Id [id number] Checkout 11/18/2018 21:52:54 Checkin 11/18/2018 20:06:00 Acuity 4 - Non-urgent [facility] Dispo Type Arrival 11/18/2018 20:06:00 Reg Status LOS 000 01:46 Address: [address] [place], [place] [address]T [place] [address] POWERFORMS PHYSICIAN NOTES VITALS INFORMATION Vital Sign Triage Temp 99.0 Temp Route Oral/Mouth Pulse Rate 107 Respiratory Rate 18 Blood Pressure 147/ 87 LOCATION INFORMATION Arrival Nurse Unit Room Bed 11/18/2018 20:06:00 [facility] ED Waitroom ([facility]) 11/18/2018 20:10:40 [facility] ED 8 11/18/2018 21:33:06 [facility] ED STA-3 11/18/2018 21:52:54 [facility] ED Checkout ([facility]) MEDICAL INFORMATION Allergy Info: No Known Allergies PATIENT EDUCATION INFORMATION Instructions: Urinary Tract Infection, Adult, Msuj-ci-Psyr; Otitis Media, Adult, Vlhf-gi-Aigh Follow up: With: Address: When: Follow up with primary care provider Within 1-2 days With: Address: When: Return to Emergency Department Within As needed DIAGNOSIS Electronically signed by Zuleyka Byrd Conversion Lens Molding Equipment Operator Cerner at 10/19/2022 11:23 AM CDT documented in this encounter Plan of Treatment Not on file documented as of this encounter Visit Diagnoses Not on filedocumented in this encounter
--- OUTSIDE RECORDS SUMMARY | 2024-06-11 08:32 | XMS_ITS | Encounter Summary ---
Author Organization [email or web address] Address [address] [place] [address] Care Team Providers Care Tax Assessor Name Role Phone Unavailable Primary Care Provider Unavailabl e Encounter Details Date Type Department Care Team (Late st Contact Info) Description 08/24/2019 Transcribed Document [facility] [place] Family Medicine [address] [place] [address] ProviderLaury MD [address] [place] [address] [id number] Social History Tobacco Use Types Packs/Day Years [...] Conversion Note - Laury ProviderMD - 08/24/2019 11:11 AM AGRICULTURAL SALES REPRESENTATIVE [facility] IntraOp Summary Primary Physician: LARRY MARTINES MD-BRANDEE Finalized Date/Time: 08/24/19 12:55:12 Pt. Name: FREDDIE ARCHERGARCIA /Sex: 1990 Female Med Rec #: [id number] Physician: LARRY MARTINES MD-BRANDEE Financial #: [id number] Pt. Type: O Room/Bed: [facility] Admit/Disch: 08/24/19 09:42:00 - Institution: [facility] [place] Endo - Case Attendance Entry 1 Entry 2 Entry 3 Case Attendee LARRY MARTINES Childress, TOBI J, RN ELLIOTT MOURA TECH MD-BRANDEE Role Performed Surgeon/Proceduralist, Process Technician, First Scrub, First First Time In 08/24/19 11:09:00 08/24/19 11:09:00 08/24/19 11:09:00 Time Out 08/24/19 11:15:00 08/24/19 11:15:00 08/24/19 11:15:00 Procedure Gastric Biopsy Esophagogastroduodenosco Esophagogastroduodenosco py, Gastric Biopsy py, Gastric Biopsy Other Attendee Superficial Wound Closed By: Last Modified By: ANGE Green RN Childress, TOBI J, RN Childress, TOBI J, RN 08/24/19 11:14:47 08/24/19 11:14:47 08/24/19 11:14:47 Entry 4 Case Attendee MARGRET MCCULLOUGH STUDY HALL SUPERVISOR Role Performed STUDY HALL SUPERVISOR/Nurse Louver Mortiser Operator Time In 08/24/19 11:09:00 Time Out 08/24/19 11:15:00 Procedure Esophagogastroduodenosco py, Gastric Biopsy Other Attendee Superficial Wound Closed By: Last Modified By: ANGE Green RN 08/24/19 11:14:47 [facility] Endo - Case Attendance Audit 08/24/19 11:14:47 Senior Windows Engineer: GEOVANNA Modifier: [email or web address] 1 <+> Time Out 1 <*> Procedure Gastric Biopsy 2 <+> Time Out 2 <*> Procedure Esophagogastroduodenoscopy, Gastric Biopsy 3 <+> Time Out 3 <*> Procedure Esophagogastroduodenoscopy, Gastric Biopsy 4 <+> Time Out 4 <*> Procedure Esophagogastroduodenoscopy, Gastric Biopsy 08/24/19 11:12:38 Senior Windows Engineer: HOLMESTJ Modifier: HOLMESTJ <+> 1 Procedure 2 <*> Procedure Esophagogastroduodenoscopy 3 <*> Procedure Esophagogastroduodenoscopy 4 <*> Procedure Esophagogastroduodenoscopy 08/24/19 11:11:44 Senior Windows Engineer: HOLMESTJ Modifier: HOLMESTJ 2 <+> Time [...] Endo - Case Times Audit 08/24/19 11:13:59 Senior Windows Engineer: HOLMESTJ Modifier: HOLMESTJ <+> 1 Out Room Time <+> 1 Stop Time <+> 1 Stop Time 08/24/19 11:11:59 Senior Windows Engineer: HOLMESTJ Modifier: HOLMESTJ <+> 1 Start Time [facility] - Cultures and Spec Summary Entry 1 Cultrures and Specimens Specimen Ordered: Yes Last Modified By: ANGE Green RN 08/24/19 11:14:38 [facility] - Delays Entry 1 Delay Reason Other Duration 0 Minute(s) Comment NO DELAY Last Modified By: ANGE Green RN 08/24/19 11:09:48 [facility] - Delays Audit 08/24/19 11:09:48 Senior Windows Engineer: JOHNATHANESTJ Modifier: [email or web address] <+> 1 Comment [...] Modified By: ANGE Green RN 08/24/19 11:09:51 [facility] Endo - Fire Risk Assessment Entry 1 Fire Info Surgical Site or 1- Yes Incision Above the Xyphoid Open O2 Source 1- Yes (Mask or Cannula) Available Ignition 1- Yes (ESU, Laser, Light Source) Fire Risk 3 Assessment Score Fire Score Fire Risk Yes Assessment Complete Fire Risk ANGE Green grease remover Verified By Fire Risk 08/24/19 11:10:00 Assessment Verified Date/Time Fire Risk High Risk Protocol Yes Implemented Standard Fire Yes Safety Precautions Followed Last Modified By: ANGE Green RN 08/24/19 11:10:04 [facility] Endo - General Case Teacher Lip Reading 1 Case Information OR Endo 01 [facility] Case Level 1 Room Verified Yes Wound Class II - Clean-Contaminated Specialty SN General Anesthesia Type MAC ASA Class 3 Diagnosis Preop Diagnosis GERD Postop Same As Preop No Postop Diagnosis normal EGD Last Modified By: ANGE Green RN 08/24/19 11:11:13 [facility] Endo - General Case Data Audit 08/24/19 11:14:21 Senior Windows Engineer: JOHNATHANESTJ Modifier: HOLMESTJ <+> 1 Postop Diagnosis E Endo - Intraoperative Assessment Entry 1 Valid History / Yes Physical in Chart Preoperative Yes Checklist Reviewed/Evaluated Allergies Reviewed Yes Patient is Latex No Sensitive Level of WDL Consciousness (WDL = Alert, Oriented to Person, Place, and Time) Present Upon IVs, ECG monitored Arrival to OR Prosthetic/Assistive Insulin pump Devices Last Modified By: ANGE Green RN 08/24/19 11:11:51 [facility] - Intraoperative Assessment Audit 08/24/19 12:55:06 Senior Windows Engineer: GEOVANNA Modifier: HOLMESTJ <+> 1 Prosthetic/Assistive Devices [facility] Endo - Intraoperative Equipment Entry 1 Type [...] Endo - Patient Positioning Audit 08/24/19 11:12:40 Senior Windows Engineer: CECILEJ Modifier: HOLMESTJ 1 <*> Procedure Esophagogastroduodenoscopy [facility] [...] Endo - Sign Out Audit 08/24/19 11:14:13 Senior Windows Engineer: CECILEJ Modifier: HOLMESTJ <+> 1 RN Sign Out [...] Clean-Contaminated Last Modified By: ANGE Green RN ANGE Green RN 08/24/19 11:12:34 08/24/19 11:12:34 [facility] - Surgical Procedures Audit 08/24/19 11:14:04 Senior Windows Engineer: GEOVANNA Modifier: HOLMESTJ <+> 1 Stop <+> 2 Stop [facility] - Time Out Entry 1 Procedure [...] Modified By: ANGE Green RN 08/24/19 11:12:41 [facility] - Time Out Audit 08/24/19 11:12:41 Senior Windows Engineer: JOHNATHANESTGiacomo Modifier: HOLMESTJ 1 <*> Procedure to be Performed Esophagogastroduodenoscopy 08/24/19 11:12:26 Senior Windows Engineer: JOHNATHANESTJ Modifier: HOLMESTJ 1 <*> Beta [...] Confirms Information Case Comments <None> Finalized By: ANGE Green, RN Document Signatures Signed By: ANGE Green RN 08/24/19 11:14 ANGE Green RN 08/24/19 12:55 Unfinalized History Date/Time Username Reason for Unfinalizing Freetext Reason for Unfinalizing 08/24/19 12:54 GEOVANNA Correct Documentation Electronically signed by [facility] Conversion Stationary Steam Engineer Cerner at 11/02/2022 10:11 AM CDT documented in this encounter Plan of Treatment Not on file documented as of this encounter Visit Diagnoses Not on filedocumented in this encounter
--- OUTSIDE RECORDS SUMMARY | 2024-06-11 08:32 | XMS_ITS | Encounter Summary ---
Author Organization [employer] Address [address] [place] [address] Care Team Providers Care Human Relations Manager Name Role Phone Unavailable Primary Care Provider Unavailabl e Encounter Details Date Type Department Care Team (Late st Contact Info) Description 01/19/2020 Transcribed Document [facility] [place] [address] [place] [address] ProviderLaury MD [address] [place] [id number] Social History Tobacco Use Types Packs/Day [...] Note - Laury Conte MD - 01/19/2020 3:30 PM CDT [address] [address] FREDDIE ARCHER :1990 Visit Time:01/19/2020 Your Visit Summary Your Care Team Admitting Physician - CONSUELO ESTEVEZ MD-EMR LAZARA KAPLAN MD PHDel, UNKNOWN Attending Physician - CONSUELO ESTEVEZ MD-LAZARA MEMBRENO MD Primary Care Physician - ERIKA PERSAUD MD-SAMUEL Referring Physician - LÓPEZ, SELF REFERRED Your [...] pharmacies and retail stores. ??? Eat bland, stfw-iu-qfllmn foods in small amounts as you are [...] and water are not available, use hand centerless grinder operator. Make sure that everyone in your household washes their hands frequently. ??? Take plzz-hgr-ewqyfao and prescription medicines only as told by [...] and water are not available, use hand centerless grinder operator. Make sure that everyone in your household [...] 07/30/2016 Document Revised: 12/12/2018 Document Reviewed: 12/12/2018 wise[employer]io Interactive Patient Education ?? 2020 [employer]. Hypoglycemia Hypoglycemia occurs when the level of [...] instructions at home: General instructions ??? Take ncaf-mmq-vnqnloy and prescription medicines only as told by [...] 07/04/2006 Document Revised: 12/26/2018 Document Reviewed: 08/06/2016 wise.io Interactive Patient Education ?? 2020 [employer]. Emergency Awareness and Preventative Care STROKE is [...] Assistance with quitting is available by contacting 8-789-VGJS-NOW. This is a free resource providing counseling, [...] range between ( 1.0 and 7.0 ) [place] #: 0.73 K/uL -- Normal range between ( 0.24 and 0.82 ) [place] #: 0.24 K/uL -- Normal range between ( 0.04 and 0.54 ) [place] %: 7.3 % -- Normal range between [...] ) Urine Bilirubin Dipstick: Negative Urine Specific [place]: 1.012 -- Normal range between ( 1.005 [...] WO: CT Abdomen Pelvis WO Patient Name:FREDDIE ARCHER I have received and understand this information and was given the opportunity to ask questions. Patient/Endoscopy Nurse Name: Patient/Endoscopy Nurse Signature: Relationship to Patient: Clinician/Hospital Endoscopy Nurse Signature: Date: documented in this encounter Plan of Treatment Not on file documented as of this encounter Visit Diagnoses Not on filedocumented in this encounter
--- OUTSIDE RECORDS SUMMARY | 2024-06-11 08:32 | XMS_ITS | Encounter Summary ---
Author Organization [employer] Address [address] [place] [address] Care Team Providers Care Steeping Press Operator Name Role Phone Unavailable Primary Care Provider Unavailabl e Encounter Details Date Type Department Care Team (Late st Contact Info) Description 09/26/2018 Transcribed Document [facility] [place] [address] [place] [address] ProviderLaury MD [address] [place] [address] [id number] Social History Tobacco Use Types Packs/Day Years [...] Laury ProviderMD - 09/26/2018 10:56 PM CDT [facility] ADDR[facility] [place], [place] [phone] Name:Crystal Archer Visit Date:09/26/2018 16:44:00 Emergency Department Care Providers: Physician: INDIO PEREA Physician: Our doctors and staff appreciate your choice of [facility] for your emergency medical care. Read these instructions carefully. Please call us if you have any questions about your medical problem. [facility] Emergency Department [phone] [facility] Emergency Department [phone] [facility] Emergency Department [phone] Patient Education Materials Crystal Archer has been [...] 07/04/2006 Document Revised: 12/09/2016 Document Reviewed: 03/04/2014 ElseADVANCED [employer] Interactive Patient Education ? 2017 [employer] FOLLOW UP CARE Most conditions that [...] x-ray department to pick them up o [facility] # [phone] o [facility] # [phone] o [facility] # [phone] ?? If you had cultures done and [...] quit. o National Network of Tobacco Cessation AVychhozq8-384-JGQG-NOW o [employer] o [employer] 4-270821-4067 o Sai/Manuel Mccray [phone] FINANCIAL INFORMATION ?? [facility] provides financial counseling to anyone who requests our services. ?? Emergency Physicians are independently contracted to provide your care. You will receive a bill for the care provided to you by the Physician and/or the Physician Designer And Patternmaker. This will be a separate bill from [...] as recommended Patient Signature / or Patient Hide Curer Provider Signature Date documented in this encounter Plan of Treatment Not on file documented as of this encounter Visit Diagnoses Not on filedocumented in this encounter
--- OUTSIDE RECORDS SUMMARY | 2024-06-11 08:32 | XMS_ITS | Encounter Summary ---
Author Organization [employer] Address [address] [place] [address] Care Team Providers Care Religious Educator Name Role Phone Unavailable Primary Care Provider Unavailabl e Encounter Details Date Type Department Care Team (Late st Contact Info) Description 10/31/2018 Transcribed Document [facility] [place] [address] [place] [address] ProviderLaury MD [address] [place] [address] [id number] Social History Tobacco Use Types Packs/Day Years [...] [employer] Tracking Group : BBK Mimi Soriano 10/30/2018 20:29 EDT ED Visit Reason : Mouth Complaint Primary Care Provider : Rema Ferreira, Manager Car Accompanied By : Family/Spouse/SO Arrival Mode : Ambulatory Chief Complaint : pt reports that she got upper right and lower right wisdom teeth romoved today at [address] Bonita Boswell. pt reports severe pain since 3:30 pm without relief with tylenol #3. Health History Reviewed : Yes summer10/30/2018 20:29 EDT Health History ED Grid Alcohol Use : No Caffeine Use : Yes Substance Abuse : No Tobacco Use : Yes, 1ppd Asthma/COPD : No Cancer : No CVA/TIA : No Mental Illness : No Dementia : No Diabetes : Yes, insulin pump 2014 General Cardiac : No GI 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 : No Control And Recovery Special Tactics Hx : No Heart Attack : No [...] Preferred Communication Mode : Verbal Languages : Maldivian Child/Parent Domestic Concerns : None Threats of Suicide : No Jasen summer10/30/2018 20:29 EDT Height and Weight Height Source : Stated Height Entry Format : [place] Height, Inches : 65 Inch(Converted to: 5 ft 5 Inch, 165.10 cm) Clinical Height : 165.1 cm Weight Source : Stated Type of Weight Measurement Est : [place] Weight, est lb : 214 lb Estimated Clinical Dosing Weight : 97.27 kg [place] Body Weight : 57 kg Body Surface Area Estimated : 2.11 m2 Body Mass Index Estimated : 35.68 kg/m2 Jasen summer10/30/2018 20:29 EDT Medication List ED Medications Reviewed : Yes Source of Information : Patient Jasen, Summer - 10/30/2018 20:29 EDT Medication List (As Of: 10/30/2018 [...] ; Status: Processing ; Ordered As Mnemonic: [place] 5 mg-325 mg oral tablet ; Simple [...]
--- OUTSIDE RECORDS SUMMARY | 2024-06-11 08:32 | XMS_ITS | Encounter Summary ---
Author Organization [employer] Address [address] [place] [address] Care Team Providers Care Psychology Instructor Name Role Phone Unavailable Primary Care Provider Unavailabl e Encounter Details Date Type Department Care Team (Late st Contact Info) Description 01/04/2020 Transcribed Document [facility] [place] [address] [place] [address] ProviderLaury MD [address] [place] [address] [id number] Social History Tobacco Use Types Packs/Day Years [...]
--- OUTSIDE RECORDS SUMMARY | 2024-06-11 08:33 | XMS_ITS | Clinical Summary ---
[facility] Address [address] [place] [address] Care Team Providers Care Waiter/Waitress Tourist Class Name Role Phone YangMaria A alex Vivek RENE Primary Care Provider [phone] Allergies Active Allergy Reactions Criticality Noted Date Comments Ibuprofen Other (See Comments) High 03/12/2019 end stage kidney failure Medications atorvastatin (LIPITOR) 40 MG tablet TAKE 1 TABLET EVERY DAY 0 12/23/19 16 Active sodium bicarbonate 650 MG tablet Take 2 tablets by mouth 2 (Two) Times a Day. 240 tablet 1 06/14/20 18 Active insulin lispro (humaLOG) 100 UNIT/ML injection Inject under the skin into the appropriate area as directed 3 (Three) Times a Day Before Meals. Uses Insulin pump Active Vitamin D, Ergocalciferol, 80135 units capsule 50,000 Int'l Units. 06/03/20 20 Active OneTouch Ultra test strip USE INSTRUCTED TO CHECK BLOOD GLUCOSE 4 TIMES DAILY IN EVENT OF CGM FAILURE Active insulin aspart (novoLOG) 100 UNIT/ML injection FOR USE IN INSULIN PUMP TO MAX DAILY DOSE 100 04/06/20 21 Active tacrolimus (PROGRAF) 0.5 MG capsule Take 1 capsule by mouth 2 (Two) Times a Day. Active mycophenolate (CELLCEPT) 500 MG tablet Take 2 tablets by mouth 2 (Two) Times a Day. Active famotidine (PEPCID) 40 MG tablet Take 1 tablet by mouth Daily. Active lisinopril (PRINIVIL,ZESTRIL) 10 MG tablet Takes 20mg daily 0 12/23/19 16 024 Discontin ued(*Ther apy completed ) ondansetron ODT (ZOFRAN-ODT) 4 MG disintegrating tablet Take 1 tablet by mouth Every 6 (Six) Hours As Needed for Nausea or Vomiting. 20 tablet 03/14/20 18 024 Discontin ued(*Ther apy completed ) carvedilol (COREG) 6.25 MG tablet Take 1 tablet by mouth 2 (Two) Times a Day With Meals. Discontin ued(*Ther apy completed ) acetaminophen (Tylenol) 325 MG tablet Take 2 tablets by mouth Every 6 (Six) Hours As Needed for Moderate Pain . 30 tablet 05/25/20 20 024 Discontin ued(*Ther apy completed ) calcitriol (ROCALTROL) 0.5 MCG capsule Take 1 capsule by mouth Daily. Discontin ued(*Ther apy completed ) calcium acetate (PHOS BINDER,) 667 MG capsule capsule TAKE 1 CAPSULE BY MOUTH THREE TIMES DAILY WITH MEALS AND 1 CAPSULE WITH A SNACK 11/11/19 Discontin ued(*Ther apy completed ) Active Problems Problem Noted Date Diagnosed Date Renal transplant recipient 06/07/2024 Assessment & Plan (06/07/2024 12:35 PM EST): Patient last evaluated in our office a little over 1 year ago in April 2023. At that time she was suffering from end-stage renal disease due to diabetic nephropathy, performing home peritoneal dialysis nightly. On December 02, 2023 she received a call from the [facility] that they had a match for her renal transplant. Patient underwent successful renal transplant on December 03, 2023. She is had a very uneventful postoperative period, stating her kidney woke up immediately upon placement. She was only hospitalized for 5 days postoperatively. She is currently using immunosuppression therapy including Prograf 0.5 mg twice daily and CellCept 1000 mg twice daily. Continues to be followed closely by [facility] transplant as well as Dr. Stevens at [facility] locally. Recurrent UTI 03/15/2023 Assessment & Plan (04/25/2023 [...] culture obtained today Annual physical exam 03/15/2023 Cervical cancer screening 03/15/2023 Type 2 diabetes mellitus wit h hyperglycemia, with long-term current use of insulin 02/15/2023 Assessment & Plan (06/07/2024 12:34 PM EST): Patient followed regularly by endocrinology with most recent A1c being 5.8% on May 23. She currently utilizes continuous insulin pump as well as GLP-1 medication Ozempic. Patient has past history of severe diabetic nephropathy, ultimately developing end-stage renal disease with recent renal transplant. She is in need of updated diabetic eye exam, states she has appointment next month with a local eye doctor. Diabetic foot exam up-to-date and satisfactory. Assessment & Plan (04/25/2023 5:04 PM EDT): [...] followed by Dr. Stevens at [facility]. Working towards renal transplant with [facility].. Assessment & Plan (03/15/2023 5:10 PM EDT): Etiology of end-stage renal disease appears to be hypertensive nephrosclerosis as well as diabetic nephropathy. She was a noncompliant type I diabetic for many years, diagnosed at the age of 12. She is currently performing home peritoneal dialysis nocturnally 6 days/week. Working towards renal transplant with [facility]. Followed by [facility], Dr. Stevens. Assessment & Plan (02/15/2023 3:01 PM EDT): Etiology of end-stage renal disease appears to be hypertensive nephrosclerosis as well as diabetic Nephropathy. She was a noncompliant type I diabetic for many years, diagnosed at the age of 12. She is currently performing home peritoneal dialysis nocturnally 6 days/week. Working towards renal transplant with [facility]. To pursue transplant services at [facility] as well but finances are making that impossible at the current time. History of bariatric surgery 02/15/2023 Assessment & Plan (06/07/2024 12:36 PM EST): Patient underwent sleeve gastrectomy in December 2019 with maximum weight of 398 pounds reported. During her last visit a little over a year ago she was noted to be 157 pounds. Patient states immediately after renal transplant she liberalized her diet causing a 20 pound weight gain. Subsequently she has been started on GLP-1 therapy by her jet blade polisher and is back down to 157 pounds today. Assessment & Plan (03/15/2023 5:09 PM EDT): Patient underwent sleeve gastrectomy in December 2019 with max weight of 398 pounds. She is currently 157 pounds. Assessment & Plan (02/15/2023 2:59 PM EDT): Underwent sleeve gastrectomy in December 2019 with maximum weight of 398 pounds. Currently weighs 157 pounds. 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 Assessment & Plan (03/15/2023 5:09 PM EDT): [...] stage IV (severe) 2018 Pyelonephritis, acute 07/21/2018 Essential hypertension 07/21/2018 Assessment & Plan (06/07/2024 12:37 PM EST): Blood pressure well-controlled in office today, 128/84. She currently does not require use of antihypertensive agents. In the past she utilized lisinopril daily well as carvedilol Assessment & Plan (04/25/2023 5:04 PM EDT): [...] prescription may change to promote less ultrafiltration. 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 Assessment & Plan (03/15/2023 5:08 PM EDT): [...] her lipids Depression 12/30/2015 Assessment & Plan (06/07/2024 12:38 PM EST): Patient has longstanding issues with depression due to an unfortunate childhood with alcohol, drug addicted mother. She also has past history of drug abuse herself. She has utilized antidepressants in the past, having no benefit from initiation of bupropion, adverse effects from fluoxetine and venlafaxine. Patient states she is currently experiencing mood stability without antidepressants. Assessment & Plan (04/25/2023 5:03 PM EDT): [...] of 107. She reports she saw her merchandise examiner who wanted to increase her blood pressure medications but she refused stating she knew she stopped the medications her blood pressure would return to normal. She is now off both BuSpar and venlafaxine with blood pressure 110/74 in office today. Patient feels her mood is stable currently without medications due to some decrease stressors in the home. Her [id number] with whom she help caregive from [place]'s disease, decreasing some of her personal obligations. [...] Problem Noted Date Diagnosed Date Resolved Date Diarrhea 03/15/2023 06/07/2024 Assessment & Plan (04/25/2023 11:08 AM EDT): [...] for ova parasites and C. difficile toxin. 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 Type 1 diabetes mellitus with hyperglycemia 02/15/2023 02/15/2023 Type 1 diabetes mellitus wit h stage 3 chronic kidney disease 07/21/2018 06/07/2024 Acute hyperkalemia 07/21/2018 4 Acute renal failure 06/13/2018 06/07/20 24 Type 2 diabetes mellitus with hyperglycemia 12/30/2015 02/15/2023 Encounters Date Type Department Care Team Description 06/07/2024 9:45 AM EST Office Visit [facility] [address] [place] [address] [place] [address] Maria A Soria APRN Renal transplant recipient (Primary Dx); Mixed hyperlipidemia; History of bariatric surgery; Essential hypertension; History of drug abuse; Persistent depressive disorder; Annual physical exam; Type 2 diabetes mellitus with hyperglycemia, with long-term current use of insulin 06/07/2024 Travel from Last 3 Months Immunizations Name Administration Dates Next Due -influenza Vac Quardvalent Preservativ 019,04/06/2018 Flublok 18+yrs 04/13/2023 Fluzone >6mos 04/26/2024 Fluzone (or Fluarix & Flulav al for VFC) >6mos 04/07/2021,04/22/2020,05/06/2017 Fluzone Quad >6mos (Multi-dose) 04/05/2012 Hepatitis A 01/29/2019,07/27/2018 Influenza Seasonal Injectable 04/05/2012 Pneumococcal Conjugate 20-Valent (PCV20) 024 Pneumococcal Polysaccharide (PPSV23) 12/21/2018 TD Preservative Free (Tenivac) 02/15/2018 Tdap 09/29/2023 Family History Relation Name Status Comments Father [...] Score 0 02/15/2023 PHQ-2 Answer Date Recorded Patient Health Questionnaire-2 Score 0 06/07/2024 Comments No Sex and Gender Information Value Date Recorded Sex Assigned at Not on file Legal Sex Female 3:21 PM EDT Gender Identity Not on file Sexual Orientation Not on file Last Filed Vital Signs Vital Sign Reading Time Taken Comments Blood Pressure 128/84 06/07/2024 8:51 AM EST Pulse 92 06/07/2024 8:51 AM EST Temperature 36.7 ??C (98.1 ??F) 06/07/2024 8:51 AM ES T Respiratory Rate 18 06/07/2024 8:51 AM EST Oxygen Saturation 97% 06/07/2024 8:51 AM EST Inhaled Oxygen Concentration - - Weight 71.3 kg (157 lb 3.2 oz) 06/07/2024 8:51 A M EST Height 162.6 cm (5' 4 ) 06/07/2024 8:51 AM EST Body Mass Index 26.98 06/07/2024 8:51 AM EST Plan of Treatment Health Maintenance Due Date Last Done Comments Annual Gynecologic Pelvic and Breast Exam 1989 Hepatitis B (1 of 3 - 19+ 3-dose series) 2008 PAP SMEAR 12/30/2015 DIABETIC EYE EXAM 12/31/2023 12/30/2022 HEMOGLOBIN A1C 11/20/2024 05/23/2024, 12/2023, 06/20/2023, Additional history exists LIPID PANEL 03/05/2025 03/05/2024, 08/2022, 05/19/2023, Additional history exists URINE MICROALBUMIN 04/02/2025 04/02/2024, 0 03/05/2024, 01/30/2024, Additional history exists COVID-19 Vaccine (#1) 05/29/2025 Postpo adilson from 1994 (Patient Refused) ANNUAL PHYSICAL 06/07/2025 06/07/2024, 03/15/2023 BMI FOLLOWUP 06/07/2025 06/07/2024, 07/2022, 02/15/2023 TDAP/TD VACCINES (3 - Td or Tdap) 09/28/2033 09/29/2023, 02/15/2018 HEPATITIS C SCREENING Completed 05/19/2023 , 05/19/2023, 07/23/2019, Additional history exists INFLUENZA VACCINE Completed 04/26/2024, , 04/07/2021, Additional history exists Pneumococcal Vaccine 0-64 Completed 04/26/2024, 12/2018 Procedures Procedure Name Priority Date/Time Associated Diagnosis [...] Relevant to Health Maintenance Results * (ABNORMAL) Lipid Panel (03/15/2023 10:03 AM [...] AM EDT Performed at: ??01 - [facility] [address] [place] [address] ??[phone] Cabinet Assembler: Jacob Whaley PhD, Phone: ??[phone] us Maria A Soria APRN LAB BLOOD ORDERABLES Final Result [facility] [address] [place] [address], [facility] [address] [place] [address], * Hepatitis C Antibody (07/23/2019 10:03 AM EST) Hepatitis C Ab Non-Reacti ve Non-Reacti ve 07/23/2019 6:31 PM EST [facility] Blood Venipuncture / Unknown 07/23/2019 10:03 AM EST 07/23/2019 10:38 AM EST Mukul Stevens MD LAB BLOOD ORDERABLES F inal Result [facility]
[address] [place] [address], from Last 3 Months or Most Recently Relevant to Health Maintenance Insurance [employer] Advance Directives * CPR (Attempt to Resuscitate) [...] pulse or is breathing): Full Care Teams Waiter/Waitress Tourist Class Relationship Specialty Start Date End Date Maria A Soria, ANJU [address] [id number] PCP - General Family Medicine 02/15/23
--- OUTSIDE RECORDS SUMMARY | 2024-06-11 08:33 | XMS_ITS | Encounter Summary ---
[facility] Address [address] [place] [address] Care Team Providers Care Hot Dimpling Machine Operator Name Role Phone Jaquan Conley MD Primary Care Provider [phone] Encounter Details Date Type Department Care Team (Late st Contact Info) Description 05/15/2021 12:00 PM EDT Lab [facility] [address] [place] [address] Anemia, unspecified type Social History [...] - 10.80 10*3/mm3 05/15/2021 6:58 PM EDT [facility] RBC 4.07 3.77 - 5.28 10*6/mm3 05/15/2021 6:58 PM EDT [facility] Hemoglobin 12.5 12.0 - 15.9 g/dL 05/15/2021 6:58 PM EDT [facility] Hematocrit 38.4 34.0 - 46.6 % 05/15/2021 6:58 PM EDT [facility] MCV 94.3 79.0 - 97.0 fL 05/15/2021 6:58 PM EDT [facility] MCH 30.7 26.6 - 33.0 pg 05/15/2021 6:58 PM EDT [facility] MCHC 32.6 31.5 - 35.7 g/dL 05/15/2021 6:58 PM EDT [facility] RDW 12.2(L) 12.3 - 15.4 % 05/15/2021 6:58 PM EDT [facility] RDW-SD 41.9 37.0 - 54.0 fl 05/15/2021 6:58 PM T [facility] MPV 13.9(H) 6.0 - 12.0 fL 05/15/2021 6:58 PM EDT [facility] Platelets 162 140 - 450 10*3/mm3 05/15/2021 6:58 PM T [facility] Neutrophil % 53.8 42.7 - 76.0 % 05/15/2021 6:58 PM EDT [facility] Lymphocyte % 36.7 19.6 - 45.3 % 05/15/2021 6:58 PM EDT [facility] Monocyte % 5.2 5.0 - 12.0 % 05/15/2021 6:58 PM EDT [facility] Eosinophil % 3.6 0.3 - 6.2 % 05/15/2021 6:58 PM [facility] Basophil % 0.5 0.0 - 1.5 % 05/15/2021 6:58 PM T [facility] Immature Grans % 0.2 0.0 - 0.5 % 05/15/2021 6:58 PM [facility] Neutrophils, Absolute 3.31 1.70 - 7.00 10*3/mm3 05/15/2021 6:58 PM T [facility] Lymphocytes, Absolute 2.26 0.70 - 3.10 10*3/mm3 05/15/2021 6:58 PM T [facility] Monocytes, Absolute 0.32 0.10 - 0.90 10*3/mm3 05/15/2021 6:58 PM EDT [facility] Eosinophils, Absolute 0.22 0.00 - 0.40 10*3/mm3 05/15/2021 6:58 PM EDT [facility] Basophils, Absolute 0.03 0.00 - 0.20 10*3/mm3 05/15/2021 6:58 PM EDT [facility] Immature Grans, Absolute 0.01 0.00 - 0.05 10*3/mm3 05/15/2021 6:58 PM EDT [facility] nRBC 0.0 0.0 - 0.2 /100 WBC 05/15/2021 6:58 PM EDT [facility] Blood Venipuncture / Unknown 05/15/2021 12:18 PM EDT 05/15/2021 1:22 PM EDT Adina Sands MD LAB BLOOD ORDERABLES Amy l Result Performing Organization Address [facility]/ZIP Co de Phone Number [facility]
[address] [place] [address], * (ABNORMAL) Urinalysis, Microscopic Only - Urine, Clean Catch (05/15/2021 12:18 PM EDT) RBC, UA 0-2 None Seen, 0-2 /HPF 05/15/2021 7:20 PM EDT [facility] WBC, UA 0-2 None Seen, 0-2 /HPF 05/15/2021 7:20 PM EDT [facility] Bacteria, UA 4+(A) None Seen /HPF 05/15/2021 7:20 PM EDT [facility] Squamous Epithelial Cells, UA 0-2 None Seen, 0-2 /HPF 05/15/2021 7:20 PM EDT [facility] Hyaline Casts, UA None Seen None Seen /LPF 05/15/2021 7:20 PM EDT [facility] Methodology Automated Microscopy 05/15/2021 7:20 PM EDT [facility] Urine Urine specimen collection, clean catch / Unknown Collection / Unknown 05/15/2021 12:18 PM EDT 05/15/2021 1:19 PM EDT Adina Sands MD URINE ORDERABLES Final Re sult Performing Organization Address [facility]/ZIP Co de Phone Number [facility]
[address] [place] [address], * (ABNORMAL) Urinalysis without microscopic (no culture) - Urine, Clean Catch (05/15/2021 12:18 PM EDT) Color, UA Yellow Yellow, Straw 05/15/2021 7:14 PM EDT [facility] Appearance, UA Clear Clear 05/15/2021 7:14 PM EDT [facility] pH, UA 6.5 5.0 - 8.0 05/15/2021 7:14 PM EDT [facility] Specific [place], UA 1.012 1.005 - 1.030 05/15/2021 7:14 PM EDT [facility] Glucose, UA Negative Negative 05/15/2021 7:14 PM EDT [facility] Ketones, UA Negative Negative 05/15/2021 7:14 PM EDT [facility] Bilirubin, UA Negative Negative 05/15/2021 7:14 PM EDT [facility] Blood, UA Negative Negative 05/15/2021 7:14 PM EDT [facility] Protein, UA 100 mg/dL (2+)(A) Negative 05/15/2021 7:14 PM EDT [facility] Leuk Esterase, UA Negative Negative 05/15/2021 7:14 PM EDT [facility] Nitrite, UA Negative Negative 05/15/2021 7:14 PM EDT [facility] Urobilinogen, UA 0.2 E.U./dL 0.2 - 1.0 E.U./dL 05/15/2021 7:14 PM EDT [facility] Urine Urine specimen collection, clean catch / Unknown Collection / Unknown 05/15/2021 12:18 PM EDT 05/15/2021 1:19 PM EDT Adina Sands MD URINE ORDERABLES Final Re sult [facility]
[address] [place] [address], * (ABNORMAL) Ferritin (05/15/2021 12:18 PM EDT) Pathologist [facility] Ferritin 302.00(H) 13.00 - 150.00 ng/mL 05/15/2021 8:42 PM EDT [facility] Blood Venipuncture / Unknown 05/15/2021 12:18 PM EDT 05/15/2021 1:22 PM EDT Narrative [facility] - 05/15/2021 8:42 PM EDT Results may be falsely decreased if patient taking Biotin. Adina Bridgesiq LAB BLOOD ORDERABLES Amy foreman Result [facility]
[address] [place] [address], * (ABNORMAL) Renal Function Panel (05/15/2021 12:18 PM EDT) [facility] Glucose 94 65 - 99 mg/dL 05/15/2021 8:28 PM EDT [facility] BUN 40(H) 6 - 20 mg/dL 05/15/2021 8:28 PM EDT [facility] Creatinine 3.83(H) 0.57 - 1.00 mg/dL 05/15/2021 8:28 PM EDT [facility] Sodium 140 136 - 145 mmol/L 05/15/2021 8:28 PM EDT [facility] Potassium 5.5(H) 3.5 - 5.2 mmol/L 05/15/2021 8:28 PM EDT [facility] Chloride 108(H) 98 - 107 mmol/L 05/15/2021 8:28 PM EDT [facility] CO2 21.5(L) 22.0 - 29.0 mmol/L 05/15/2021 8:28 PM EDT [facility] Calcium 8.8 8.6 - 10.5 mg/dL 05/15/2021 8:[facility] Albumin 3.90 3.50 - 5.20 g/dL 05/15/2021 8:28 PM EDT [facility] Phosphorus 5.1(H) 2.5 - 4.5 mg/dL 05/15/2021 8:28 PM EDT [facility] Anion Gap 10.5 5.0 - 15.0 mmol/L 05/15/2021 8:28 PM EDT [facility] BUN/Creatinine Ratio 10.4 7.0 - 25.0 05/15/2021 8:28 PM EDT [facility] eGFR Non Amer 14(L) >60 mL/min/1.7 3 05/15/2021 8:28 PM EDT [facility] Comment:<15 Indicative of ki dney failure. eGFR Amer 05/15/2021 8:28 PM EDT [facility] Comment:<15 Indicative of ki dney failure. Blood Venipuncture / Unknown 05/15/2021 12:18 PM EDT 05/15/2021 1:22 PM EDT Narrative [facility] - 05/15/2021 8:28 PM EDT GFR Normal >60 Chronic Kidney Disease <60 Kidney Failure <15 Adina Sands MD LAB BLOOD ORDERABLES Amy l Result [facility]
[address] [place] [address], * (ABNORMAL) Iron Profile (05/15/2021 12:18 PM EDT) Iron 67 37 - 145 mcg/dL 05/15/2021 8:28 PM EDT [facility] Iron Saturation (TSAT) 27 20 - 50 % 05/15/2021 8:28 PM EDT [facility] Transferrin 168(L) 200 - 360 mg/dL 05/15/2021 8:28 PM EDT [facility] TIBC 250(L) 298 - 536 mcg/dL 05/15/2021 8:28 PM EDT [facility] Blood Venipuncture / Unknown 05/15/2021 12:18 PM EDT 05/15/2021 1:22 PM EDT Adina Sands MD LAB BLOOD ORDERABLES Amy l Result [facility]
[address] [place] [address], documented in this encounter Visit Diagnoses Diagnosis Anemia, unspecified type documented in this encounter Care Teams Hot Dimpling Machine Operator Relationship Specialty Start Date End Date Jaquan Conlye MD [address] [place] [id number] PCP - General Internal Medicine 04/23/20 02/14/23 documented as of this encounter
--- OUTSIDE RECORDS SUMMARY | 2024-06-11 08:33 | XMS_ITS | Encounter Summary ---
Author Organization [facility] Address [address] [place] [id number] Care Team Providers Care Automotive Accessory Installer Name Role Phone Maria A Soria BUSINESS EDUCATION TEACHER Primary Care Provider [phone] Reason for Visit * Reason Comments Annual Exam Encounter Details Date Type Department Care Team (Late st Contact Info) Description 06/07/2024 9:45 AM EST Office Visit [facility] [address] [place] [phone] Maria A Soria, BUSINESS EDUCATION TEACHER [address] [place] [address] Renal transplant recipient (Primary Dx); Mixed hyperlipidemia; History of bariatric surgery; Essential hypertension; History of drug abuse; Persistent depressive disorder; Annual physical exam; Type 2 diabetes mellitus with hyperglycemia, with long-term current use of insulin Social History Tobacco Use Types Packs/Day Years [...] Mass Index 26.98 06/07/2024 8:51 AM EST documented in this encounter Progress Notes * Maria A Soria APRN - 06/07/2024 12:38 PM ESTAssociated Problem(s): Depression Patient has longstanding issues with depression due to an unfortunate childhood with alcohol, drug addicted mother. She also has past history of drug abuse herself. She has utilized antidepressants in the past, having no benefit from initiation of bupropion, adverse effects from fluoxetine and venlafaxine. Patient states she is currently experiencing mood stability without antidepressants. * Maria A Soira APRN - 06/07/2024 12:37 PM ESTAssociated Problem(s): Essential hypertension Blood pressure well-controlled in office today, 128/84. She currently does not require use of antihypertensive agents. In the past she utilized lisinopril daily well as carvedilol * Maria A Soria APRN - 06/07/2024 12:36 PM ESTAssociated Problem(s): History of bariatric surgery Patient underwent sleeve gastrectomy in December 2019 with maximum weight of 398 pounds reported. During her last visit a little over a year ago she was noted to be 157 pounds. Patient states immediatelyafter renal transplant she liberalized her diet causing a 20 pound weight gain. Subsequently she has been started on GLP-1 therapy by her dampproofer and is back down to 157 pounds today. 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 * Maria A Soria APRN - 06/07/2024 12:35 PM ESTAssociated Problem(s): Hyperlipidemia Patient currently utilizing atorvastatin 40 mg once daily for lipid control. * Maria A Soria APRN - 06/07/2024 12:35 PM ESTAssociated Problem(s): Renal transplant recipient Patient last evaluated in our office a little over 1 year ago in April 2023. At that time she wassuffering from end-stage renal disease due to diabetic nephropathy, performing home peritoneal dialysis nightly. On December 02, 2023 she received a call from the [facility] that they had a match for [...] daily. Continues to be followed closely by [facility] transplant [facility] well [facility]. * Maria A Soria APRN - 06/07/2024 12:34 PM ESTAssociated Problem(s): Type 2 diabetes mellitus with hyperglycemia, with long-term current use of insulin Patient followed regularly by endocrinology with most [...] doctor. Diabetic foot exam up-to-date and satisfactory. * Maria A Soria APRN - 06/07/2024 9:45 AM EST Images from the original note were not included. Annual Physical Name: Crystal Archer : 1990 Chief Complaint Annual Exam Subjective History of Present Illness: Crystal Archer is a 33 y.o. female who presents today for annual physical exam. Patient has medical issues including type 2 diabetes, hyperlipidemia, hypertension, depression. Patient also has history of drug abuse. Patient last evaluated in our office a little over 1 year ago in April 2023. At that time she was suffering from end-stage renal disease due to diabetic nephropathy, performing home peritoneal dialysis nightly. On December 02, 2023 [facility]. Patient underwent successful renal transplant on December 03, 2023. She is had a very uneventful postoperative period, stating her kidney woke up immediately upon placement. She was only hospitalized for 5 days postoperatively. She is currently using immunosuppression therapy including Prograf 0.5 mg twice daily and CellCept 1000 mg twice daily. Patient states she has enjoyed the unrestricted diet no longer being on dialysis has afforded her. Patienthas history of bariatric surgery in December 2019 with a maximum weight of 398 pounds reported. Patientstates after transplant she gained back up to 178 pounds, prompting endocrinology and transplant tostart her on GLP-1 therapy through Ozempic. Patient currently back down to 157 pounds. Lowest weight has been 125 pounds. Patient also has history of drug abuse, methamphetamine being drug of choice.She has been clean and sober since April 2022. She continues to be followed by endocrinology with most recent A1c of 5.8%. She currently utilizes continuous insulin pump and GLP-1 medication. Patient recently had lab work approximately 4 weeks ago all of which were satisfactory with current cre atinine of 1.1. SHe has no complaints or concerns today The patient is being seen for a health maintenance evaluation. Social History Tobacco Use: High Risk (06/07/2024) Patient History Smoking Tobacco Use: Some Days Smokeless Tobacco Use: Never Passive Exposure: Not on file Social History Socioeconomic History Marital status: Tobacco Use Smoking status: Some Days Current packs/day: 0.50 Average packs/day: 0.5 packs/day for 10.0 years (5.0 ttl pk-yrs) Types: Cigarettes Smokeless tobacco: Never Vaping Use Vaping status: Never Used Substance and Sexual Activity Alcohol use: No Drug use: No Sexual activity: Yes control/protection: Pill, None, Surgical General History Crystal does not have regular dental visits. She does not complain of vision problems. Last eye exam was about a year and a half but has one scheduled next month Immunizations are up to date. Lifestyle Crystal consumes low salt. She exercises never. Reproductive Health She reports periods are regular every 28-30 days. She is sexually active. Her contraceptive plan is bilateral tubal ligation. Screening Last pap was Last Completed Pap Smear This patient has no relevant Health Maintenance data. . History of abnormal pap smear or family history of rocket propellant plant supervisor cancer: Last mammogram was Last Completed Mammogram This patient has no relevant Health Maintenance data. . Personal or family history of abnormal mammograms or breast cancer: no Last colonoscopy was Last Completed Colonoscopy This patient has no relevant Health Maintenance data. . Family history of colon cancer: no Health Maintenance Summary Overdue - Hepatitis B (1 of 3 - 19+ 3-dose series) Never done 02/15/2023 Postponed until 02/16/2024 by Betsey Roach MA (Patient Refused) Overdue - PAP SMEAR (Every 3 Years) Never done 02/15/2023 Postponed until 04/09/2023 by Betsey Roach MA (Pending event) Overdue - DIABETIC EYE EXAM (Yearly) Overdue since 12/31/2023 12/30/2022 Done Overdue - BMI FOLLOWUP (Yearly) Overdue since 02/16/2024 02/15/2023 SmartData: BMI EDUCATION FOR OVERWEIGHT 02/15/2023 SmartData: WORKFLOW - QUALITY MEASUREMENT - DOCUMENTED WEIGHT FOLLOW- UP PLAN Overdue - ANNUAL PHYSICAL (Yearly) Overdue since 03/15/2024 03/15/2023 Done Postponed - COVID-19 Vaccine (1) Postponed until 05/29/2025 06/07/2024 Postponed until 05/29/2025 by Betsey Roach MA (Patient Refused) 04/25/2023 Postponed until 07/15/2023 by Betsey Roach MA (Product Unavailable) 03/15/2023 Postponed until 03/17/2023 by Betsey Roach MA (Patient Refused) 02/15/2023 Postponed until 02/17/2023 by Betsey Roach MA (Patient Refused) HEMOGLOBIN A1C (Every 6 Months) Next due on 11/20/2024 05/23/2024 Hemoglobin A1C component of POCT GLYCOSYLATED HEMOGLOBIN (HGB A1C) 06/20/2023 POCT GLYCOSYLATED HEMOGLOBIN (HGB A1C) 05/19/2023 HEMOGLOBIN A1C 03/15/2023 Hemoglobin A1C component of Hemoglobin A1c 12/16/2022 Hemoglobin A1C component of POCT GLYCOSYLATED HEMOGLOBIN (HGB A1C) Only the first 5 history entries have been loaded, but more history exists. LIPID PANEL (Yearly) Next due on 03/05/2025 03/05/2024 Outside Procedure: CHG LIPID PANEL 05/19/2023 CHOLESTEROL, TOTAL 03/15/2023 Lipid Panel 01/03/2019 Lipid Panel URINE MICROALBUMIN (Yearly) Next due on 04/02/2025 04/02/2024 Protein / Creatinine Ratio, Urine - 03/05/2024 Protein / Creatinine Ratio, Urine - 01/30/2024 Protein / Creatinine Ratio, Urine - 07/23/2016 Protein, Urine, 24 Hour 06/17/2016 Protein, Urine, 24 Hour Only the first 5 history entries have been loaded, but more history exists. TDAP/TD VACCINES (3 - Td or Tdap) Next due on 09/28/2033 09/29/2023 Imm Admin: Tdap 02/15/2018 Imm Admin: TD Preservative Free (Tenivac) HEPATITIS C SCREENING Completed 05/19/2023 HEPATITIS C ANTIBODY 07/23/2019 Hepatitis C Antibody 04/06/2018 Hep C Virus Ab component of Hepatitis Panel, Acute Pneumococcal Vaccine 0-64 (Series Information) Completed 04/26/2024 Imm Admin: Pneumococcal Conjugate 20-Valent (PCV20) 02/15/2023 Postponed until 02/16/2024 by Betsey Roach MA (Patient Refused) 12/21/2018 Imm Admin: Pneumococcal Polysaccharide (PPSV23) INFLUENZA VACCINE Completed 04/26/2024 Imm Admin: Fluzone >6mos 04/13/2023 Imm Admin: Flublok 18+yrs 04/07/2021 Imm Admin: Fluzone (or Fluarix & Flulaval for VFC) >6mos 04/22/2020 Imm Admin: Fluzone (or Fluarix & Flulaval for VFC) >6mos 05/17/2019 Imm Admin: 31-influenza Vac Quardvalent Preservativ Only the first 5 history entries have been loaded, but more history exists. Immunization History Administered Date(s) Administered 31-influenza Vac Quardvalent Preservativ 04/06/2018, 05/17/2019 Flublok 18+yrs 04/13/2023 Fluzone >6mos 04/26/2024 Fluzone (or Fluarix & Flulaval for VFC) >6mos 05/06/2017, 04/22/2020, 04/07/2021 Fluzone Quad >6mos (Multi-dose) 04/05/2012 Hepatitis A 07/27/2018, 01/29/2019 Influenza Seasonal Injectable 04/05/2012 Pneumococcal Conjugate 20-Valent (PCV20) 04/26/2024 Pneumococcal Polysaccharide (PPSV23) 12/21/2018 TD Preservative Free (Tenivac) 02/15/2018 Tdap 09/29/2023 Review of Systems Constitutional: Negative for appetite change, chills, fatigue and fever. Eyes: Negative for visual disturbance. Respiratory: Negative for cough, chest tightness, shortness of breath and wheezing. Cardiovascular: Negative for chest pain, palpitations and leg swelling. Gastrointestinal: Negative for abdominal pain, constipation, diarrhea, nausea and vomiting. Endocrine: Negative for polydipsia and polyuria. Genitourinary: Negative for decreased urine volume, difficulty urinating, dysuria, flank pain, frequency, hematuria and urgency. Musculoskeletal: Negative for arthralgias and myalgias. Skin: Negative for rash. Neurological: Negative for dizziness, weakness, light-headedness, numbness and headaches. Hematological: Does not bruise/bleed easily. Psychiatric/Behavioral: Negative for agitation, self-injury, sleep disturbance and suicidal ideas. The patient is not nervous/anxious. Objective Vital Signs BP 128/84 (BP Location: Left arm, Patient Position: Sitting, Cuff Size: Adult) Pulse 92 Temp 98.1 ??F (36.7 ??C) (Temporal) Resp 18 Ht 162.6 cm (64 ) Wt 71.3 kg (157 lb 3.2 oz) SpO2 97% BMI 26.98 kg/m?? Estimated body mass index is 26.98 kg/m?? as calculated from the following: Height as of this encounter: 162.6 cm (64 ). Weight as of this encounter: 71.3 kg (157 lb 3.2 oz). BMI is >= 25 and <30. (Overweight) The following options were offered after discussion;: exercise counseling/recommendations and nutrition counseling/recommendations Physical Exam Vitals reviewed. Constitutional: Appearance: Normal [...] are normal. Palpations: Abdomen is soft. Genitourinary: Comments: Defer to rocket propellant plant supervisor Musculoskeletal: General: Normal range of motion. Cervical back: Neck supple. Skin: General: Skin is warm and dry. Capillary Refill: Capillary refill takes less than 2 seconds. Neurological: Mental Status: She is alert and oriented to person, place, and time. Psychiatric: Mood and Affect: Mood normal. Behavior: Behavior normal. Thought Content: Thought content normal. Judgment: Judgment normal. Assessment and Plan Diagnoses and all orders for this visit: 1. Renal transplant recipient (Primary) Assessment & Plan: Patient last evaluated in our office a little over 1 year ago in April 2023. At that time she wassuffering from end-stage renal disease due to diabetic nephropathy, performing home peritoneal dialysis nightly. On December 02, 2023 she received a call from the [facility] that they had a match for [...] daily. Continues to be followed closely by [facility] transplant as well as Dr. Stevens at [facility]. 2. Mixed hyperlipidemia Assessment & Plan: Patient currently utilizing atorvastatin 40 mg once daily for lipid control. 3. History of bariatric surgery Assessment & Plan: Patient underwent sleeve gastrectomy in December 2019 with maximum weight of 398 pounds reported. During her last visit a little over a year ago she was noted to be 157 pounds. Patient states immediatelyafter renal transplant she liberalized her diet causing a 20 pound weight gain. Subsequently she has been started on GLP-1 therapy by her dampproofer and is back down to 157 pounds today. 4. Essential hypertension Assessment & Plan: Blood pressure well-controlled in office today, 128/84. She currently does not require use of antihypertensive agents. In the past she utilized lisinopril daily well as carvedilol 5. 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 6. Persistent depressive disorder Assessment & Plan: Patient has longstanding issues with depression due to an unfortunate childhood with alcohol, drug addicted mother. She also has past history of drug abuse herself. She has utilized antidepressants in the past, having no benefit from initiation of bupropion, adverse effects from fluoxetine and venlafaxine. Patient states she is currently experiencing mood stability without antidepressants. 7. Annual physical exam 8. Type 2 diabetes mellitus with hyperglycemia, with long-term current use of insulin Assessment & Plan: Patient followed regularly by endocrinology with most [...] doctor. Diabetic foot exam up-to-date and satisfactory. Follow Up Return in about 1 year (around 06/07/2025) for Annual physical. Maria A Soria APRN documented in this encounter Plan of Treatment Not on file documented as of this encounter Visit Diagnoses Diagnosis Renal transplant recipient- Primary Mixed hyperlipidemia History of bariatric surgery Bariatric surgery status Essential hypertension Unspecified essential hypertension History of drug abuse Other, mixed, or unspecified nondependent drug abuse, in remission Persistent depressive disorder Annual physical exam Routine general medical examination at a health care facility Type 2 diabetes mellitus with hyperglycemia, with long-term current use of insulin documented in this encounter Care Teams Automotive Accessory Installer Relationship Specialty Start Date End Date Maria A Soria APRN [address] [place], [place] [id number] PCP - General Family Medicine 02/15/23 documented as of this encounter
--- OUTSIDE RECORDS SUMMARY | 2024-06-11 08:33 | XMS_ITS | Encounter Summary ---
[facility] Address [address] [place] [address] Care Team Providers Care Indian Blanket Weaver Name Role Phone Jaquan Conley MD Primary Care Provider [phone] Encounter Details Date Type Department Care Team (Late st Contact Info) Description 06/18/2021 11:45 AM EST Lab [facility] [address] [place] [address] Anemia, unspecified type; CKD stage [...] CBC Auto Differential (06/18/2021 11:50 AM EST) [facility] WBC 5.83 3.40 - 10.80 10*3/mm3 06/18/2021 6:07 PM [facility] RBC 3.87 3.77 - 5.28 10*6/mm3 06/18/2021 6:07 PM [facility] Hemoglobin 12.3 12.0 - 15.9 g/dL 06/18/2021 6:07 PM [facility] Hematocrit 36.2 34.0 - 46.6 % 06/18/2021 6:07 PM [facility] MCV 93.5 79.0 - 97.0 fL 06/18/2021 6:07 PM [facility] MCH 31.8 26.6 - 33.0 pg 06/18/2021 6:07 PM [facility] MCHC 34.0 31.5 - 35.7 g/dL 06/18/2021 6:07 PM [facility] RDW 12.0(L) 12.3 - 15.4 % 06/18/2021 6:07 PM [facility] RDW-SD 41.0 37.0 - 54.0 fl 06/18/2021 6:07 PM [facility] MPV 13.5(H) 6.0 - 12.0 fL 06/18/2021 6:07 PM [facility] Platelets 186 140 - 450 10*3/mm3 06/18/2021 6:07 PM [facility] Neutrophil % 51.0 42.7 - 76.0 % 06/18/2021 6:07 PM [facility] Lymphocyte % 38.3 19.6 - 45.3 % 06/18/2021 6:07 PM [facility] Monocyte % 5.3 5.0 - 12.0 % 06/18/2021 6:07 PM [facility] Eosinophil % 4.5 0.3 - 6.2 % 06/18/2021 6:07 PM [facility] Basophil % 0.7 0.0 - 1.5 % 06/18/2021 6:07 PM [facility] Neutrophils, Absolute 2.98 1.70 - 7.00 10*3/mm3 06/18/2021 6:07 PM [facility] Lymphocytes, Absolute 2.23 0.70 - 3.10 10*3/mm3 06/18/2021 6:07 PM [facility] Monocytes, Absolute 0.31 0.10 - 0.90 10*3/mm3 06/18/2021 6:07 PM [facility] Eosinophils, Absolute 0.26 0.00 - 0.40 10*3/mm3 06/18/2021 6:07 PM [facility] Basophils, Absolute 0.04 0.00 - 0.20 10*3/mm3 06/18/2021 6:07 PM [facility] Blood Venipuncture / Unknown 06/18/2021 11:50 AM EST 06/18/2021 12:26 PM EST Adina Sands MD LAB BLOOD ORDERABLES Amy l Result Performing Organization Address [facility]/ZIP Co de Phone Number [facility]
[address] [place] [address], * (ABNORMAL) Urinalysis, Microscopic Only - Urine, Clean Catch (06/18/2021 11:50 AM EST) RBC, UA 0-2 None Seen, 0-2 /HPF 06/18/2021 7:18 PM [facility] WBC, UA 3-5(A) None Seen, 0-2 /HPF 06/18/2021 7:18 PM [facility] Bacteria, UA 2+(A) None Seen /HPF 06/18/2021 7:18 PM [facility] Squamous Epithelial Cells, UA 7-12(A) None Seen, 0-2 /HPF 06/18/2021 7:18 PM [facility] Hyaline Casts, UA 0-2 None Seen /LPF 06/18/2021 7:18 PM [facility] Methodology Manual Light Microscopy 06/18/2021 7:18 PM [facility] Urine Urine specimen obtained by clean catch procedure / Unknown Collection / Unknown 06/18/2021 11:50 AM EST 06/18/2021 12:25 PM EST Adina Sands MD URINE ORDERABLES Final Re sult [facility]
[address] [place] [address], [place] [phone] * (ABNORMAL) Urinalysis without microscopic (no culture) - Urine, Clean Catch (06/18/2021 11:50 AM EST) Color, UA Yellow Yellow, Straw 06/18/2021 6:38 PM [facility] Appearance, UA Clear Clear 06/18/2021 6:38 PM [facility] pH, UA 5.5 5.0 - 8.0 06/18/2021 6:38 PM [facility] Specific [place], UA 1.012 1.005 - 1.030 06/18/2021 6:38 PM [facility] Glucose, UA Negative Negative 06/18/2021 6:38 PM [facility] Ketones, UA Negative Negative 06/18/2021 6:38 PM [facility] Bilirubin, UA Negative Negative 06/18/2021 6:38 PM [facility] Blood, UA Moderate (2+)(A) Negative 06/18/2021 6:38 PM [facility] Protein, UA 100 mg/dL (2+)(A) Negative 06/18/2021 6:38 PM [facility] Leuk Esterase, UA Negative Negative 06/18/2021 6:38 PM [facility] Nitrite, UA Negative Negative 06/18/2021 6:38 PM [facility] Urobilinogen, UA 0.2 E.U./dL 0.2 - 1.0 E.U./dL 06/18/2021 6:38 PM [facility] Urine Urine specimen obtained by clean catch procedure / Unknown Collection / Unknown 06/18/2021 11:50 AM EST 06/18/2021 12:25 PM EST Adina Sands MD URINE ORDERABLES Final Re sult [facility]
[address] [place] [address], [place] [phone] * (ABNORMAL) Ferritin (06/18/2021 11:50 AM EST) Pathologist [facility] Ferritin 231.00(H) 13.00 - 150.00 ng/mL 06/18/2021 6:35 PM [facility] Blood Venipuncture / Unknown 06/18/2021 11:50 AM EST 06/18/2021 12:26 PM EST [facility] - 06/18/2021 6:35 PM EST Results may be falsely decreased if patient taking Biotin. Adina Sands MD LAB BLOOD ORDERABLES Amy foreman Result [facility]
[address] [place] [address], * (ABNORMAL) Renal Function Panel (06/18/2021 11:50 AM EST) [facility] Glucose 197(H) 65 - 99 mg/dL 06/18/2021 7:06 PM [facility] BUN 41(H) 6 - 20 mg/dL 06/18/2021 7:06 PM [facility] Creatinine 3.69(H) 0.57 - 1.00 mg/dL 06/18/2021 7:06 PM [facility] Sodium 139 136 - 145 mmol/L 06/18/2021 7:06 PM [facility] Potassium 5.4(H) 3.5 - 5.2 mmol/L 06/18/2021 7:06 PM [facility] Chloride 107 98 - 107 mmol/L 06/18/2021 7:06 PM [facility] CO2 18.7(L) 22.0 - 29.0 mmol/L 06/18/2021 7:06 PM [facility] Calcium 8.5(L) 8.6 - 10.5 mg/dL 06/18/2021 7:06 PM [facility] Albumin 4.10 3.50 - 5.20 g/dL 06/18/2021 7:06 PM [facility] Phosphorus 5.0(H) 2.5 - 4.5 mg/dL 06/18/2021 7:06 PM [facility] Anion Gap 13.3 5.0 - 15.0 mmol/L 06/18/2021 7:06 PM [facility] BUN/Creatinine Ratio 11.1 7.0 - 25.0 06/18/2021 7:06 PM [facility] eGFR Non Amer 14(L) >60 mL/min/1.7 3 06/18/2021 7:06 PM [facility] Comment:<15 Indicative of ki dney failure. eGFR Amer 06/18/2021 7:06 PM [facility] Comment:<15 Indicative of ki dney failure. Blood Venipuncture / Unknown 06/18/2021 11:50 AM EST 06/18/2021 12:26 PM EST [facility] - 06/18/2021 7:06 PM EST GFR Normal >60 Chronic Kidney Disease <60 Kidney Failure <15 Adina Sands MD LAB BLOOD ORDERABLES Amy l Result [facility]
[address] [place] [address], * Iron Profile (06/18/2021 11:50 AM EST) Iron 90 37 - 145 mcg/dL 06/18/2021 7:06 PM [facility] Iron Saturation (TSAT) 29 20 - 50 % 06/18/2021 7:06 PM [facility] Transferrin 208 200 - 360 mg/dL 06/18/2021 7:06 PM [facility] TIBC 310 298 - 536 mcg/dL 06/18/2021 7:06 PM [facility] Blood Venipuncture / Unknown 06/18/2021 11:50 AM EST 06/18/2021 12:26 PM EST Adina Sands MD LAB BLOOD ORDERABLES Amy foreman Result [facility]
[address] [place] [address], documented in this encounter Visit Diagnoses Diagnosis Anemia, unspecified type CKD stage G5/A3, GFR <15 and albumin creatinine ratio >300 mg/g documented in this encounter Care Teams Indian Blanket Weaver Relationship Specialty Start Date End Date Jaquan Conley MD [address] [place] [id number] PCP - General Internal Medicine 04/23/20 02/14/23 documented as of this encounter
--- OUTSIDE RECORDS SUMMARY | 2024-06-11 08:33 | XMS_ITS | Encounter Summary ---
Author Organization [facility] Address [address] [place] [id number] Care Team Providers Care Clinical Program Director Name Role Phone Maria A Soria STEMHOLE BORER AND TOPPER Primary Care Provider [phone] Reason for Visit * Reason Comments Follow-up Encounter Details Date Type Department Care Team (Late st Contact Info) Description 04/25/2023 11:30 AM EDT Office Visit [facility] [address] [place] [phone] Maria A Soria APRN [address] [place] [address] Type 1 diabetes mellitus with [...] Notes * Maria A Soria APRN - 04/25/2023 5:04 PM EDTAssociated Problem(s): Type 2 diabetes mellitus with hyperglycemia, with long-term current use of insulin Patient [facility], last A1c [...] followed by Dr. Stevens [facility]. Working towards renal transplant with [facility].. * Maria A Soria APRN - [...] of 107. She reports she saw her thermodynamics engineer who wanted to increase her blood pressure medications but she refused stating she knew she stopped the medications her blood pressure would return to normal. She is now off both BuSpar and abner lafaxine with blood pressure 110/74 in office today. Patient feels her mood is stable currently without medications due to some decrease stressors in the home. Her uxayld-ev-juq with whom she help caregive from Valentina's [...] of 107. She reports she saw her thermodynamics engineer who wanted to increase her blood pressure medications but she refused stating she knew she stopped the medications her blood pressure would return to normal. She is now off both BuSpar and venlafaxine with blood pressure 110/74 in office today. Patient feels her mood is stable currently without medications due to some decrease stressors in the home.Her mhzzct-lm-eep with whom she help caregive from Aurora's disease, decreasing some of her personal obligations. [...] SECTION GASTRIC SLEEVE LAPAROSCOPIC INDUCED 2006 [facility] No family history on file. Vital Signs [...] by Dr. Stevens at [facility]. Working towards renal transplant with [facility].. 5. Diarrhea, unspecified type Assessment & [...] of 107. She reports she saw her thermodynamics engineer who wanted to increase her blood pressure medications but she refused stating she knew she stopped the medications her blood pressure would return to normal. She is now off both BuSpar and abner lafaxine with blood pressure 110/74 in office today. Patient feels her mood is stable currently without medications due to some decrease stressors in the home. Her kvqtti-hf-hwy with whom she help caregive from Valentina's disease, decreasing some of her personal obligations. Follow Up No follow-ups on file. Maria A Soria APRN * Maria A Soria APRN - 04/25/2023 11:08 AM EDTAssociated Problem(s): Diarrhea (Resolved 06/07/2024) Diarrhea resolved. * Maria A Soria APRN - 04/25/2023 11:07 AM EDTAssociated Problem(s): Recurrent UTI Has appt with ID on May 05 * Maria A Soria APRN - 04/25/2023 11:07 AM EDTAssociated Problem(s): Chronic kidney disease-mineral and bone disorder (Resolved 06/07/2024) Recent change in calcitriol. documented in this [...] disorder documented in this encounter Care Teams Clinical Program Director Relationship Specialty Start Date End Date Maria A Soria APRN [address] [place], [place] [id number] PCP - General Family Medicine 02/15/23 documented as of this encounter
--- OUTSIDE RECORDS SUMMARY | 2024-06-11 08:33 | XMS_ITS | Encounter Summary ---
Author Organization [employer] Address [address] [place] [address] Care Team Providers Care Automatic Print Developer Name Role Phone Unavailable Primary Care Provider Unavailabl e Encounter Details Date Type Department Care Team (Late st Contact Info) Description 09/26/2018 Historic Encounter [address] [phone] ProviderJen Historical Social History Tobacco [...] PM EDT) MCHC 32.7 32.2 - 35.5 [facility] % Monos 5.6 4.7 - 12.5 % [facility] Hemoglobin 10.1(L) 11.2 - 15.7 [facility] RDW 12.2 11.7 - 14.4 % [facility] % Eos 3.9 0.7 - 5.8 % [facility] Hematocrit 30.9(L) 34.1 - 44.9 % [facility] Platelets 212 182 - 369 [facility] % Baso 0.2 0.1 - 1.2 % [facility] MCV 87 79 - 95 [facility] % Neutros 59.5 34.0 - 71.1 [facility] Immature Granulocytes-Re lative 0.3 0.0 - 0.5 % [facility] WBC 10.4(H) 4.0 - 10.0 [facility] MCH 28.5 25.6 - 32.2 pg [facility] % Lymphs 30.5 19.3 - 51.7 % [facility] RBC 3.54(L) 3.93 - 5.22 [facility] 09/26/2018 5:27 PM EDT us Sle Historical Provider LAB BLOOD ORDERABLES Fi nal Result [facility] 1 [place] [id number] [phone] * (ABNORMAL) Basic Metabolic Panel (09/26/2018 5:27 PM EDT) Calcium 8.4(L) 8.5 - 10.1 mg/dL [facility] Sodium 136 136 - 145 mMole/Lite r [facility] Potassium 4.0 3.5 - 5.1 mMole/Lite r [facility] Glucose 172(H) 74 - 99 [facility] Chloride 100 98 - 107 mMole/Lite r [facility] Creatinine 3.56(H) 0.55 - 1.02 mg/dL [facility] BUN 48(H) 7 - 18 mg/dL [facility] CO2 26 21 - 32 mMole/Lite r [facility] eGFR Non (mL/min/1.73m2) 15.1(L) >60 [facility] 09/26/2018 5:27 PM EDT [facility] Provider LAB BLOOD ORDERABLES Fi nal Result [facility] [address] [phone] * HCG Urine POC (09/26/2018 4:49 PM EDT) Specific [place], UA 1.010 1.005 - 1.030 [facility] POC, URINE HCG NEGATIVE [facility] 09/26/2018 4:49 PM EDT Result [facility] Provider POINT OF CARE TEST ORDE RABLES Final Result Performing Organization Address City/[facility]/ZIP Co de Phone Number [facility] [address] [phone] * (ABNORMAL) Urinalysis, Reflex Microscopic and Culture If Indicated (09/26/2018 4:49 PM EDT) Blood, UA 1+ NEGATIVE [facility] Leukocytes, UA NEGATIVE NEGATIVE [facility] Mucus TRACE NONE, TRACE [facility] Glucose, UA TRACE NEGATIVE [facility] pH, UA 6.5 6.0 - 7.5 [facility] SQUAMOUS EPITHELIAL 0-2 NONE, 0-2 [facility] Bilirubin, UA NEGATIVE NEGATIVE [facility] Urinalysis, Other NONE SEEN /HPF [facility] Protein, UA 2+(A) NEGATIVE [facility] Crystals, Urine NONE SEEN NONE SEEN [facility] WBC, UA 0-5 NONE, 0-5 [facility] Urine Casts NONE SEEN NONE SEEN [facility] Ketones, UA NEGATIVE NEGATIVE [facility] Urobilinogen, UA 0.2 0.2 - 1.0 [facility] Bacteria, UA 1+(A) NONE, TRACE [facility] Color, UA LIGHT YELLOW YEL, L. YEL [facility] Specific [place], UA 1.010 1.005 - 1.030 [facility] RBC, UA 5-10(A) NONE, 0-2 [facility] Nitrite, UA NEGATIVE NEGATIVE [facility] Amorphous Crystals TRACE NONE, TRACE [facility] Clarity, UA CLEAR CLEAR, HAZY [facility] 09/26/2018 4:49 PM EDT [facility] Historical Provider URINE ORDERABLES Final Result [facility] [address] [phone] documented in this encounter Visit Diagnoses Not on filedocumented in this encounter
--- OUTSIDE RECORDS SUMMARY | 2024-06-11 08:33 | XMS_ITS | Encounter Summary ---
[facility] Organization [facility] Address [address] [place] [id number] Care Team Providers Care Children Librarian Name Role Phone Maria A Soria BUNKER WORKER Primary Care Provider [phone] Encounter Details Date Type Department Care Team (Late st Contact Info) Description 03/18/2023 Telephone [facility]IMARY [facility] [address] [place] [phone] Maria A Soria BUNKER WORKER [address] [place], [place] [id number] Social History Tobacco Use Types Packs/Day Years [...] documented as of this encounter Care Teams Children Librarian Relationship Specialty Start Date End Date Maria A Soria APRN [address] [place], [place] [id number] PCP - General Family Medicine 02/15/23 documented as of this encounter
--- OUTSIDE RECORDS SUMMARY | 2024-06-11 08:33 | XMS_ITS | Encounter Summary ---
Author Organization [employer] Address [address] [place] [address] Care Team Providers Care Cornice Upholsterer Name Role Phone Unavailable Primary Care Provider Unavailabl e Encounter Details Date Type Department Care Team (Late st Contact Info) Description 08/03/2018 Transcribed Document [facility] Family Medicine [address] [place] [address] ProviderLaury MD [address] [place] [address] Social History Tobacco Use Types Packs/Day [...] - Laury ProviderMD - 08/03/2018 6:57 PM CENTRIFUGE SEPARATOR TENDER BBK Triage ED Entered On: 08/03/2018 14:06 EST Performed On: 08/03/2018 13:57 EST by ROSA FOSTER Triage Assessment Gynecologic Hx : N/A Medication Profile, Med Rec : Open ROSA FOSTER - 08/03/2018 14:10 EST Triage Date/Time : 08/03/2018 13:57 EST ROSA FOSTER - 08/03/2018 13:57 EST DCP GENERIC CODE Tracking Group : GM Nicolas Tracking Acuity : 3 - Urgent GM CRISTIANROSA Anamaria - 08/03/2018 13:57 EST ED Visit Reason : Urinary/Voiding Complaints Primary Care Provider : Jax Hsu Accompanied By : Family/Spouse/SO Arrival Mode : Ambulatory Chief Complaint : C/O low back pain, dysuria since 0430. D/CD from [facility] 07/22 AMA for UTI. Health History Reviewed [...] : No GI 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 : No Construction Crew Member Hx : No Heart Attack : No [...] No Pathway Planning : No ROSA FOSTER - 08/03/2018 13:57 EST Temp : 98.1 Deg [...] Source : Stated Height Entry Format : [place] Height, Inches : 65 Inch(Converted to: 5 ft 5 Inch, 165.10 cm) Clinical Height : 165.1 cm Weight Source : Stated Type of Weight Measurement Est : [place] Weight, est lb : 215 lb Estimated Clinical Dosing Weight : 97.73 kg [place] Body Weight : 57 kg Body Surface Area Estimated : 2.12 m2 Body Mass Index Estimated : 35.85 kg/m2 ROSA FOSTER D - 08/03/2018 13:57 EST Immunization Status Immunizations Reviewed : Up to date H1N1 Immunizations Current : No Tetanus Immunization : Less than 5 years Flu Immunization Current : Yes ROSA FOSTER D - 08/03/2018 13:57 EST Medication List ED Medications Reviewed : Yes Source of Information : Patient ROSA FOSTER D - 08/03/2018 14:10 EST Medication List (As [...]
--- OUTSIDE RECORDS SUMMARY | 2024-06-11 08:33 | XMS_ITS | Encounter Summary ---
[facility] Address [address] [place] [address] Care Team Providers Care Tunnel Heading Supervisor Name Role Phone Maria A Soria Vivek RENE Primary Care Provider [phone] Encounter Details Date Type Department Care Team (Late st Contact Info) Description 02/16/2023 Patient rounding ([facility] [facility] [address] [place] [address] [place] [address] Chey Coello Social History Tobacco Use [...] - 02/16/2023 2:20 PM EDTSummary: Rounding ..A MobiD[employer] message has been sent to the patient for patient rounding with [facility]. documented in this encounter Plan of Treatment Not on file documented as of this encounter Visit Diagnoses Not on filedocumented in this encounter Care Teams Tunnel Heading Supervisor Relationship Specialty Start Date End Date Maria A Soria APRN [address] [place], [place] [phone] PCP - General Family Medicine 02/15/23 documented as of this encounter
--- OUTSIDE RECORDS SUMMARY | 2024-06-11 08:33 | XMS_ITS | Encounter Summary ---
[facility] Address [address] [place] [id number] Care Team Providers Care Brineyard Supervisor Name Role Phone Maria A Soria BUILDING INSULATION SUPERVISOR Primary Care Provider [phone] Reason for Visit * Reason Onset Date Comments FYI 03/16/2023 Encounter Details Date Type Department Care Team (Late st Contact Info) Description 03/16/2023 Telephone [facility] PRIMARY CARE [address] [place] [phone] Maria A Soria, BUILDING INSULATION SUPERVISOR [address] [place], [place] [id number] I Social History Tobacco Use Types Packs/Day Years [...] Archer Relationship: Self Best call back number: [phone] What was the call regarding: PATIENT STATES THAT SHE HAD THE C-DIFF TEST AND TURNED IT IN TO [facility] documented in this encounter Plan of Treatment Not on file documented as of this encounter Visit Diagnoses Not on filedocumented in this encounter Additional Health Concerns Infection Onset Date Last Indicated Resolved Time C.difficile (rule out) 03/15/2023 03/16/202303/20 9:08 PM EDT documented as of this encounter Care Teams Brineyard Supervisor Relationship Specialty Start Date End Date Maria A Soria APRN [address] [place] [address] PCP - General Family Medicine 02/15/23 documented as of this encounter
--- OUTSIDE RECORDS SUMMARY | 2024-06-11 08:33 | XMS_ITS | Encounter Summary ---
Author Organization [facility] Address [address] [place] [address] Care Team Providers Care Chemical Operations And Training Name Role Phone Maria A Soria APRN Primary Care Provider [phone] Reason for Referral * Consultation (Routine) - Closed Specialty Diagnoses / Procedures Referred By Xochitl t Referred To Contact Gynecology Diagnoses Cervical cancer screening Procedures [place] OFFICE/OUTPATIENT NEW MODERATE MDM 45-59 MINUTES Maria A Soria APRN [address] [place] [address] Phone: tel: fax: Osbaldo Zarco MD [address] [place] [address] Phone: tel: fax: Referral ID Status Reason Start Date Expiration Date V isits Requested Visits Authorized [id number] Closed Specialty Services Required 03/15/2023 03/14/2024 1 1 Reason for Visit * Reason Comments Annual Exam Encounter Details Date Type Department Care Team (Late st Contact Info) Description 03/15/2023 10:15 AM EDT Office Visit [facility] PRIMARY CARE [address] [place] [address] [place] [address] Maria A Soria APRN [address] [place] [address] Recurrent UTI (Primary Dx); Type [...] 4 to 6 weeks * Maria A Soria APRN - 03/15/2023 5:11 PM EDTAssociated Problem(s): Diarrhea (Resolved 06/07/2024) Patient reports frequent diarrhea over the last [...] 6 days/week. Working towards renal transplant with [facility]. Followed by [facility], Dr. Stevens. * Maria A Soria APRN [...] - 03/15/2023 10:45 AM EDTAssociated Problem(s): Type 2 diabetes mellitus with hyperglycemia, with long-term current use of insulin Patient followed by [facility] for type [...] not up-to-date on cervical cancer screening, requesting BOOKS SALESPERSON referral to establish care. She is up-to-date [...] abnormal pap smear or family history of senior c software developer cancer: unknown Last mammogram was Last Completed [...] 6 days/week. Working towards renal transplant with [facility]. Followed by [facility], Dr. Stevens. Orders: - CBC & Differential [...] 10:03 AM EDT 03/16/2023 Comment:Blood Release to [facility] Ar[facility]o [facility] ([facility]ORY) - 03/16/2023 9:07 AM EDT Performed at: ??01 - [facility] [address] [place] [address] ??[id number] Campus Recruiting Internship: Jacob Whaley PhD, Phone: ??[phone] Maria A Soria APRN LAB BLOOD ORDERABLES Final Result Performing Organization Address [facility]/ZIP Co de Phone Number [facility] (AMBULATORY) [address] [place] [address], [place] [phone] [facility] [address] [place] [address], * (ABNORMAL) Lipid Panel (03/15/2023 10:03 AM [...] EDT 03/16/2023 Comment:Blood Release to bhavin Alberts [facility] (AMBULATORY) - 03/16/2023 9:07 AM EDT Performed at: ??01 - [facility] [address] ??[id number] Campus Recruiting Internship: Jacob Whaley PhD, Phone: ??[phone] Maria A Soria APRN LAB BLOOD ORDERABLES Final Result Performing Organization Address [facility]/ZIP Co de Phone Number [facility] [address] [place] [address], [place] [phone] [facility] [address] [place] [address], [place] [phone] * (ABNORMAL) CBC & Differential (03/15/2023 10:03 [...] AM EDT 03/16/2023 Comment:Blood Release to pat michell Alberts [facility] ([facility]ORY) - 03/16/2023 9:07 AM EDT Performed at: ??01 - [facility] ??[id number] Campus Recruiting Internship: Jacob Whaley PhD, Phone: ??[phone] us Maria A Soria COMMISSIONER PUBLIC WORKS LAB BLOOD ORDERABLES Final Result [facility] (AMBULATORY) [address] [place] [address], [place] [phone] [facility] [address] [place] [address], * (ABNORMAL) Comprehensive Metabolic Panel (03/15/2023 10:03 [...] 9:07 AM EDT Performed at: ??01 - [facility], [place], [place] ??[id number] Campus Recruiting Internship: Jacob Whaley PhD, Phone: ??[phone] Maria A Soria APRN LAB BLOOD ORDERABLES Final Result Performing Organization Address [facility]/ZIP Co de Phone Number [facility] (AMBULATORY) [address] [place] [address], [place] [phone] [facility] [address] [place] [address], [place] [phone] * TSH Rfx On Abnormal To Free T4 (03/15/2023 10:03 AM EDT) TSH 2.880 0.450 - 4.500 uIU/mL [facility] Blood Structure of right upper limb / Unknown 03/15/2023 10:03 AM EDT 03/16/2023 Comment:Blood Release to [facility] michell Alberts [facility] (AMBULATORY) - 03/16/2023 9:07 AM EDT Performed at: ??01 - [facility] [address] [place] [address] ??[id number] Campus Recruiting Internship: Jacob Whaley PhD, Phone: ??[phone] Maria A Soria APRN LAB BLOOD ORDERABLES Final Result Performing Organization Address [facility] Co de Phone Number [facility] (AMBULATORY) [address] [place] [address], [place] [phone] [facility] [address] [place] [address], [place] [phone] * (ABNORMAL) Urine Culture - , (03/15/2023 [...] A). (CLSI) 03/15/2023 03/16/2023 Comment:Urine Release to bhavin galarza Narrative [facility] ([facility]BULATORY) - 03/17/2023 5:06 PM EDT Performed at: ??01 - [facility] [address] [facility] [place], [place] ??[id number] Campus Recruiting Internship: Jacob Whaley PhD, Phone: ??[phone] Maria A Soria APRN MICROBIOLOGY - GENERAL ANABEL UGARTE Final Result [facility] ([facility]ULATORY) [address] [place] [address], [place] [phone] [facility] [address] [place] [address], [place] [phone] documented in this encounter Visit Diagnoses Diagnosis [...] documented as of this encounter Care Teams Chemical Operations And Training Relationship Specialty Start Date End Date Maria A Soria APRN [address] [place], [place] [id number] PCP - General Family Medicine 02/15/23 documented as of this encounter
--- OUTSIDE RECORDS SUMMARY | 2024-06-11 08:33 | XMS_ITS | Encounter Summary ---
Author Organization [employer] [facility] Address [address] [place] [address] Care Team Providers Care Roll Setter Name Role Phone Unavailable Primary Care Provider Unavailabl e Encounter Details Date Type Department Care Team (Late st Contact Info) Description 08/03/2018 Transcribed Document [facility] [place] [address] [place] [address] ProviderLaury MD [address] [place] [id number] Social History Tobacco Use Types Packs/Day Years [...] - Laury ProviderMD - 08/03/2018 7:32 PM WORKERS COMPENSATION CLAIMS ASSISTANT [facility] AD[facility] [place], [place] [phone] Name:Crystal Archer Visit Date:08/03/2018 13:52:00 Emergency Department Care Providers: Physician: MEGHA MAN Physician: Our doctors and staff appreciate your choice of [facility] for your emergency medical care. Read these instructions carefully. Please call us if you have any questions about your medical problem. [facility] Emergency Department [phone] [facility] Emergency Department [phone] [facility] Emergency Department [phone] Patient Education Materials Crystal Archersil has been [...] x-ray department to pick them up o [facility] # [phone] o [facility] # [phone] o [facility] # [phone] ?? If you had cultures done and [...] quit. o National Network of Tobacco Cessation [id number] o [employer] o [employer] [phone] o Sai/Manuel Mahendra [phone] FINANCIAL INFORMATION ?? [facility] provides financial counseling to anyone who requests our services. ?? Emergency Physicians are independently contracted to provide your care. You will receive a bill for the care provided to you by the Physician and/or the Physician Sewing Machine Repairer Helper. This will be a separate bill [...] as recommended Patient Signature / or Patient Clinical Trial Assistant Provider Signature Date Electronically signed by Zuleyka Byrd Conversion Ecommerce Marketing Manager Sandraner at 10/19/2022 11:22 AM CDT documented in this encounter Plan of Treatment Not on file documented as of this encounter Visit Diagnoses Not on filedocumented in this encounter
--- OUTSIDE RECORDS SUMMARY | 2024-06-11 08:33 | XMS_ITS | Encounter Summary ---
[facility] Organization [facility] Address [address] [place] [id number] Care Team Providers Care Unmanned Equipment Operator Name Role Phone Maria A Soria APRN Primary Care Provider [phone] Reason for Visit * Reason Onset Date Comments Med Refill 02/16/2023 Encounter Details Date Type Department Care Team (Late st Contact Info) Description 02/16/2023 Refill [facility] PRIMARY CARE [address] [place] [phone] Maria A Soria, FRUIT AND VEGETABLE CLASSER [address] [place], [place] [id number] Persistent depressive disorder Social History Tobacco Use [...] Telephone Encounter - Betsey Roach MA - 02/16/2023 1:44 PM EDT Last visit on 02/16/2023 Rx sent * Telephone Encounter - Jessenia Gomes RegSched Rep - 02/16/2023 1:31 PM EDT Caller: FREDDIE ARCHER Relationship: SELF Best call back number: [phone] Requested Prescriptions: Requested Prescriptions Pending Prescriptions Disp Refills buPROPion XL (Wellbutrin XL) 150 MG 24 hr tablet 90 tablet 0 Sig: Take 1 tablet by mouth Daily. Pharmacy where request should be sent: [facility] [address] [place] [address] [phone] [facility] [phone] FX Last office visit with prescribing clinician: [...] disorder documented in this encounter Care Teams Unmanned Equipment Operator Relationship Specialty Start Date End Date Maria A Soria APRN [address] [place], [place] [id number] PCP - General Family Medicine 02/15/23 documented as of this encounter
--- OUTSIDE RECORDS SUMMARY | 2024-06-11 08:33 | XMS_ITS | Encounter Summary ---
Author Organization [employer] Address [address] [place] [address] Care Team Providers Care Mechanical Engineering Manager Name Role Phone Unavailable Primary Care Provider Unavailabl e Encounter Details Date Type Department Care Team (Late st Contact Info) Description 09/07/2018 Transcribed Document [facility] [place] [address] [place] [address] ProviderLaury MD [address] [place] [address] [id number] Social History Tobacco Use Types Packs/Day Years [...] - Laury ProviderMD - 09/07/2018 9:31 PM CAREER TECHNOLOGY TEACHER Emergency Department Depart Summary PERSON INFORMATION Name Crystal Archer Age 28 Years 1990 Sex Female Language PCP Marital Status Phone [phone] Visit Id Visit Reason Specialty Enc Type Emergency Med Service Referred by Track Group [facility] Discharge Tracking Id [id number] Checkout 09/07/2018 16:31:16 Checkin 09/07/2018 15:20:00 Acuity 4 - Non-urgent [facility] Dispo Type Arrival 09/07/2018 15:20:00 Reg Status LOS 000 01:11 Address: [address] [place] [address] [place] [address] POWERFORMS PHYSICIAN NOTES VITALS INFORMATION Vital Sign Triage Temp 99.1 Temp Route Oral/Mouth Pulse Rate 61 Respiratory Rate 20 Blood Pressure 145/ 91 LOCATION INFORMATION Arrival Nurse Unit Room Bed 09/07/2018 15:20:00 [facility] ED Waitroom ([facility]) 09/07/2018 15:34:51 [facility] ED 9 09/07/2018 16:31:16 [facility] ED Checkout ([facility]) MEDICAL INFORMATION Allergy Info: No Known [...]
--- OUTSIDE RECORDS SUMMARY | 2024-06-11 08:33 | XMS_ITS | Encounter Summary ---
Author Organization [employer] Address [address] [place] [address] Care Team Providers Care Customer Operations Manager Name Role Phone Unavailable Primary Care Provider Unavailabl e Encounter Details Date Type Department Care Team (Late st Contact Info) Description 09/07/2018 Transcribed Document [facility] [place] Family Medicine [address] [place] [address] ProviderLaury MD [address] [place] [address] [id number] Social History Tobacco Use Types Packs/Day Years [...] - Laury ProviderMD - 09/07/2018 9:31 PM [facility] ADDRESS [place], [place] [phone] Name:Crystal Archer Visit Date:09/07/2018 15:20:00 Emergency Department Care Providers: Physician: MEGHA MAN Physician: Our doctors and staff appreciate your choice of [facility] for your emergency medical care. Read these instructions carefully. Please call us if you have any questions about your medical problem. [facility] Emergency Department [phone] [facility] Emergency Department [phone] [facility] Emergency Department [phone] Patient Education Materials Crystal Archer Karen has been given the following patient education [...] 12/15/2006 Document Revised: 03/06/2017 Document Reviewed: 12/11/2014 ElseHara Interactive Patient Education ? 2017 [employer] FOLLOW UP CARE Most conditions that [...] x-ray department to pick them up o [facility] # [phone] o [facility] # [phone] o [facility] # [phone] ?? If you had cultures done and [...] quit. o National Network of Tobacco Cessation XEuhzhugn0-840-BCEY-NOW o [employer] Lung Association o [employer] Heart Association [phone] o Sai/Manuel Mccray [phone] FINANCIAL INFORMATION ?? [facility] provides financial counseling to anyone who requests our services. ?? Emergency Physicians are independently contracted to provide your care. You will receive a bill for the care provided to you by the Physician and/or the Physician Physical Education Specialist. This will be a separate bill [...] as recommended Patient Signature / or Patient Superintendent Of Generation Provider Signature Date documented in this encounter Plan of Treatment Not on file documented as of this encounter Visit Diagnoses Not on filedocumented in this encounter
--- OUTSIDE RECORDS SUMMARY | 2024-06-11 08:33 | XMS_ITS | Encounter Summary ---
Author Organization [facility] Address [address] [place] [address] Care Team Providers Care Sail Cutter Name Role Phone Maria A Soria APRN Primary Care Provider [phone] Encounter Details Date Type Department Care Team (Latest Contact Info) Description 06/07/2024 Travel Social History Tobacco Use Types Packs/Day [...] on filedocumented in this encounter Care Teams Sail Cutter Relationship Specialty Start Date End Date Maria A Soria APRN [address] [place] [address] PCP - General Family Medicine 02/15/23 documented as of this encounter
--- OUTSIDE RECORDS SUMMARY | 2024-06-11 08:33 | XMS_ITS | Encounter Summary ---
Author Organization [employer] Address [address] [place] [address] Care Team Providers Care Special Tax Auditor Name Role Phone Unavailable Primary Care Provider Unavailabl e Encounter Details Date Type Department Care Team (Late st Contact Info) Description 08/03/2018 Transcribed Document [facility] [place] Medicine [address] [place] [address] ProviderLaury MD [address] [place] [address] [id number] Social History Tobacco Use Types Packs/Day Years [...] - Laury ProviderMD - 08/03/2018 7:32 PM DIRECTOR WEB [facility] Emergency Department Depart Summary PERSON INFORMATION Name Crystal Archer Age 27 Years 1990 Sex Female Language PCP Marital Status Phone [phone] Visit Id Visit Reason Specialty Enc Type Emergency Med Service Referred by Track Group [facility] Discharge Tracking Id [id number] Checkout 08/03/2018 14:32:57 Checkin 08/03/2018 13:52:00 Acuity 3 - Urgent [facility] Dispo Type Arrival 08/03/2018 13:52:00 Reg Status LOS 000 00:40 Address: [address] [place] [address] [place] [address] POWERFORMS PHYSICIAN NOTES VITALS INFORMATION Vital Sign Triage Temp 98.1 Temp Route Oral/Mouth Pulse Rate 90 Respiratory Rate 18 Blood Pressure 152/ 87 LOCATION INFORMATION Arrival Nurse Unit Room Bed 08/03/2018 13:52:00 [facility] ED Waitroom ([facility]) 08/03/2018 13:55:29 [facility] ED 3 08/03/2018 14:32:57 [facility] ED Checkout ([facility]) MEDICAL INFORMATION Allergy Info: No Known Allergies PATIENT EDUCATION INFORMATION Instructions: Follow up: DIAGNOSIS documented in this encounter Plan of Treatment Not on file documented as of this encounter Visit Diagnoses Not on filedocumented in this encounter
--- OUTSIDE RECORDS SUMMARY | 2024-06-11 08:33 | XMS_ITS | Encounter Summary ---
Author Organization [employer] Address [address] [place] [address] Care Team Providers Care Landscape Engineer Name Role Phone Unavailable Primary Care Provider Unavailabl e Encounter Details Date Type Department Care Team (Late st Contact Info) Description 08/03/2018 Historic Encounter [facility] [address] [place] [address] Alan Cline DO [address] [facility] [place] [address] Social History Tobacco Use Types Packs/Day Years [...] PM EST) Urinalysis, Other NONE SEEN /HPF [facility] Crystals, Urine NONE SEEN NONE SEEN [facility] Ketones, UA NEGATIVE NEGATIVE [facility] Urobilinogen, UA 0.2 0.2 - 1.0 [facility] Color, UA LIGHT YELLOW YEL, L. YEL [facility] Urine Casts NONE SEEN NONE SEEN [facility] RBC, UA 0-2 NONE, 0-2 [facility] Specific [place], UA 1.020 1.005 - 1.030 [facility] Nitrite, UA NEGATIVE NEGATIVE [facility] SQUAMOUS EPITHELIAL 0-2 NONE, 0-2 [facility] Clarity, UA CLEAR CLEAR, HAZY [facility] Amorphous Crystals TRACE NONE, TRACE [facility] Blood, UA TRACE-LYSED NEGATIVE [facility] Leukocytes, UA NEGATIVE NEGATIVE [facility] Bacteria, UA TRACE NONE, TRACE [facility] Glucose, UA TRACE NEGATIVE [facility] pH, UA 7.0 6.0 - 7.5 [facility] WBC, UA 0-5 NONE, 0-5 [facility] Bilirubin, UA NEGATIVE NEGATIVE [facility] Mucus 1+(A) NONE, TRACE [facility] Protein, UA 2+(A) NEGATIVE [facility] 08/03/2018 1:56 PM EST us Alan Cline DO URINE ORDERABLES Final Result [facility] [address] [phone] * HCG Urine POC (08/03/2018 1:56 PM EST) POC, URINE HCG NEGATIVE [facility] Specific [place], UA 1.020 1.005 - 1.030 [facility] 08/03/2018 1:56 PM EST Alan Cline DO POINT OF CARE TEST ORDERABLES Final Result Performing Organization Address City/State/[facility] Co de Phone Number [facility] [address] [phone] documented in this encounter Visit Diagnoses Not on filedocumented in this encounter
--- OUTSIDE RECORDS SUMMARY | 2024-06-11 08:33 | XMS_ITS | Encounter Summary ---
Author Organization [employer] Address [address] [place] [address] Care Team Providers Care Personalized Living Assistant Name Role Phone Unavailable Primary Care Provider Unavailabl e Encounter Details Date Type Department Care Team (Late st Contact Info) Description 09/07/2018 Transcribed Document [facility] [place] Medicine [address] [place] [address] ProviderLaury MD [address] [place] [address] [phone] Social History Tobacco Use Types Packs/Day Years [...] - Laury ProviderMD - 09/07/2018 9:31 PM FIELD CLINICAL ENGINEER [facility] ADDRESS [place], [place] [phone] Name:Crystal Archer Visit Date:09/07/2018 15:20:00 Emergency Department Care Providers: Physician: MEGHA MAN Physician: Our doctors and staff appreciate your choice of [facility] for your emergency medical care. Read these instructions carefully. Please call us if you have any questions about your medical problem. [facility] Emergency Department [phone] [facility] Emergency Department [phone] [facility] Emergency Department [phone] Patient Education Materials Crystal Archer Karen has [...] 12/15/2006 Document Revised: 03/06/2017 Document Reviewed: 12/11/2014 ElseArkeia Software Interactive Patient Education ? 2017 [employer] FOLLOW UP CARE Most conditions that [...] x-ray department to pick them up o [facility] # [phone] o [facility] # [phone] o [facility] # [phone] ?? If you had cultures done and [...] quit. o National Network of Tobacco Cessation [id number]-NOW o [employer] Lung Association o [employer] Heart Association [phone] o Sai/Manuel Mccray [phone] FINANCIAL INFORMATION ?? [facility] provides financial counseling to anyone who requests our services. ?? Emergency Physicians are independently contracted to provide your care. You will receive a bill for the care provided to you by the Physician and/or the Physician Pot Filler. This will be a separate bill from [...] as recommended Patient Signature / or Patient Criminal Justice Teacher Provider Signature Date Date/Time 09/07/2018 16:31 Saint [...] oral tablet loratadine 10 mg oral capsule [place] 5 mg-325 mg oral tablet sodium bicarbonate [...]
--- OUTSIDE RECORDS SUMMARY | 2024-06-11 08:33 | XMS_ITS | Encounter Summary ---
Author Organization [employer] Address [address] [place] [address] Care Team Providers Care Solar Project Coordination Specialist Name Role Phone Unavailable Primary Care Provider Unavailabl e Encounter Details Date Type Department Care Team (Late st Contact Info) Description 08/03/2018 Transcribed Document [facility] [place] [address] [place] [address] ProviderLaury MD [address] [place] [address] [id number] Social History Tobacco Use Types Packs/Day Years [...] - Laury ProviderMD - 08/03/2018 7:32 PM EMBEDDED SYSTEMS DESIGNER [facility] ADDRESS [place], [place] [phone] Name:Crystal Archer Visit Date:08/03/2018 13:52:00 Emergency Department Care Providers: Physician: MEGHA MAN Physician: Our doctors and staff appreciate your choice of [facility] for your emergency medical care. Read these instructions carefully. Please call us if you have any questions about your medical problem. [facility] [place] [facility] Emergency Department [phone] [facility] Emergency Department [phone] [facility] Emergency Department [phone] Patient Education Materials Crystal Archersil has been [...] x-ray department to pick them up o [facility] [place] [facility] # [phone] o [facility] # [phone] o [facility] # [phone] ?? If you had cultures done and [...] quit. o National Network of Tobacco Cessation ZGvarmppo5-036-OLMG-NOW o [employer] Lung Association o [employer] Heart Association [phone] o Sai/Manuel Mahendra [phone] FINANCIAL INFORMATION ?? [facility] provides financial counseling to anyone who requests our services. ?? Emergency Physicians are independently contracted to provide your care. You will receive a bill for the care provided to you by the Physician and/or the Physician Manager Publishing. This will be a separate bill from [...] as recommended Patient Signature / or Patient Wreath Maker Provider Signature Date Date/Time 08/03/2018 14:32 Saint [...] Date Electronically signed by Zuleyka Byrd Conversion Operations Staff Specialist Security Keysha at 10/19/2022 11:22 AM CDT documented in this encounter Plan of Treatment Not on file documented as of this encounter Visit Diagnoses Not on filedocumented in this encounter
--- OUTSIDE RECORDS SUMMARY | 2024-06-11 08:33 | XMS_ITS | Encounter Summary ---
Author Organization [facility] Address [address] [place] [id number] Care Team Providers Care Rehabilitation Center Manager Name Role Phone Maria A Soria ELEMENTARY MATH TUTOR Primary Care Provider [phone] Reason for Visit * Reason Comments Establish Care Encounter Details Date Type Department Care Team (Late st Contact Info) Description 02/15/2023 11:00 AM EDT Office Visit [facility] [address] [place] [phone] Maria A Soria, ANJU [address] [place] [address] Essential hypertension (Primary Dx); ESRD [...] - 02/15/2023 3:07 PM EDTAssociated Problem(s): Type 2 diabetes mellitus [...] 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 Working towards renal transplant with [facility]. To pursue transplant services at [facility] as well but finances are making [...] was previously followed by a PCP in [facility], but finds it difficult to continue to [...] She is followed by [facility]. She notes the etiology of her end-stage [...] 10/17/2012 SECTION GASTRIC SLEEVE LAPAROSCOPIC INDUCED 2006 [facility] History reviewed. [...] 6 days/week. Working towards renal transplant with [facility]. To pursue transplant services at [facility] as well but finances are making [...] AM EDT Performed at: ??01 - [facility] [address] ??[id number] Relief Map Modeler: Jacob Whaley PhD, Phone: ??[phone] us Maria A Soria APRN LAB BLOOD ORDERABLES Final Result [facility] (AMBULATORY) [address] [place] [address], [place] [phone] [facility] [address] [place] [address], * (ABNORMAL) Comprehensive Metabolic Panel (03/15/2023 10:03 [...] 9:07 AM EDT Performed at: ??01 - [facility] [address] [place], [place] ??[id number] Relief Map Modeler: Jacob Whaley PhD, Phone: ??[phone] Maria A Soria ELEMENTARY MATH TUTOR LAB BLOOD ORDERABLES Final Result [facility] (AMBULATORY) [address] [place] [address], [facility] [address] [place] [address], * (ABNORMAL) CBC & Differential (03/15/2023 10:03 [...] 10:03 AM EDT 03/16/2023 Comment:Blood Release to [facility] (AMBULATORY) - 03/16/2023 9:07 AM EDT Performed at: ??01 - [facility] [address] ??[id number] Relief Map Modeler: Jacob Whaley PhD, Phone: ??[phone] Maria A Soria APRN LAB BLOOD ORDERABLES Final Result Performing Organization Address City/[facility]/ZIP Co de Phone Number [facility] (AMBULATORY) [address] [place] [address], [place] [phone] [facility] [address] [place] [address], [place] [phone] * (ABNORMAL) Lipid Panel (03/15/2023 10:03 AM [...] 10:03 AM EDT 03/16/2023 Comment:Blood Release to [facility] ([facility]) - 03/16/2023 9:07 AM EDT Performed at: ??01 - [facility] [address] ??[id number] Relief Map Modeler: Jacob Whaley PhD, Phone: ??[phone] Maria A Soria APRN LAB BLOOD ORDERABLES Final Result Performing Organization Address City/[facility]/ZIP Co de Phone Number [facility] (AMBULATORY) [address] [place] [address], [facility] [address] [place] [address], * (ABNORMAL) Hemoglobin A1c (03/15/2023 10:03 AM EDT) Hemoglobin A1C 5.9(H) 4.8 - 5.6 % [facility] Comment: ? Prediabetes: 5.7 - 6.4 ? Diabetes: >6.4 ? Glycemic control for adults with diabetes: <7.0 Blood Structure of right upper limb / Unknown 03/15/2023 10:03 AM EDT 03/16/2023 Comment:Blood Release to [facility] - 03/16/2023 9:07 AM EDT Performed at: ??01 - [facility] ??[id number] Relief Map Modeler: Jacob Whaley PhD, Phone: ??[phone] Maria A Soria APRN LAB BLOOD ORDERABLES Final Result Performing Organization Address [facility] Co de Phone Number [facility] ([facility]) [address] [place] [address], [facility] [address] [place] [address], [place] [phone] documented in this encounter Visit Diagnoses Diagnosis [...] cervix documented in this encounter Care Teams Rehabilitation Center Manager Relationship Specialty Start Date End Date Maria A Soria APRN [address] [place] [phone] PCP - General Family Medicine 02/15/23 documented as of this encounter
--- OUTSIDE RECORDS SUMMARY | 2024-06-11 08:33 | XMS_ITS | Encounter Summary ---
Author Organization [employer] Address [address] [place] [address] Care Team Providers Care Sleep Manager Name Role Phone Unavailable Primary Care Provider Unavailabl e Encounter Details Date Type Department Care Team (Late st Contact Info) Description 09/07/2018 Transcribed Document [facility] Family Medicine [address] [place] [address] ProviderLaury MD [address] [place] [address] Social History Tobacco Use Types Packs/Day [...] - Laury ProviderMD - 09/07/2018 8:23 PM ADDRESS CHANGE CLERK [facility] Triage ED Entered On: 09/07/2018 15:30 EST Performed On: 09/07/2018 15:23 EST by Silvia Cole, Triage Assessment Triage Date/Time : 09/07/2018 15:23 EST Silvia Cole, - 09/07/2018 15:23 EST DCP GENERIC CODE Tracking Acuity : 4 - Non-urgent [facility] Tracking Group : [facility] Silvia Kim, - 09/07/2018 15:23 EST ED Visit Reason [...] her self. Health History Reviewed : Yes Silvia Cole, - 09/07/2018 15:23 EST Health History ED Grid Alcohol Use : No Caffeine Use : Yes Substance Abuse : No Tobacco Use : Yes, 1ppd Asthma/COPD : No Cancer : No CVA/TIA : No Mental Illness : No Dementia : No Diabetes : Yes, insulin pump 2014 General Cardiac : No GI 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 : No Double Needle Operator Lockstitch Hx : No Heart Attack : No [...] Source : Stated Height Entry Format : [place] Height, Inches : 65 Inch(Converted to: 5 ft 5 Inch, 165.10 cm) Clinical Height : 165.1 cm Weight Source : Stated Type of Weight Measurement Est : [place] Weight, est lb : 215 lb Estimated Clinical Dosing Weight : 97.73 kg [place] Body Weight : 57 kg Body Surface Area Estimated : 2.12 m2 Body Mass Index Estimated : 35.85 kg/m2 Silvia Cole, - 09/07/2018 15:23 EST Medication List ED Medications Reviewed : Yes Source of Information : Patient Silvia Cole, - 09/07/2018 15:23 EST Medication List (As Of: 09/07/2018 15:30:02 EST) Home Meds Status: Processing ; Ordered As Mnemonic: Gregory 5 mg-325 mg oral tablet ; Simple [...] Location : Arm, left Intensity : 9 Silvia Cole, - 09/07/2018 15:23 EST documented in this encounter Plan of Treatment Not on file documented as of this encounter Visit Diagnoses Not on filedocumented in this encounter
--- OUTSIDE RECORDS SUMMARY | 2024-06-11 08:33 | XMS_ITS | Encounter Summary ---
Author Organization [facility] Address [address] [place] [address] Care Team Providers Care Boiler Cleaner Name Role Phone Jaquan Conley MD Primary Care Provider [phone] Encounter Details Date Type Department Care Team (Late st Contact Info) Description 06/26/2021 11:50 AM EST Lab [facility] [address] [place] [address] Urinary tract infection without hematuria, [...] AM EST Performed at: ??01 - [facility] [address] ??[id number] Cloth Cutting Machine Operator: Jacob Whaley PhD, Phone: ??[phone] us Mare Kapoor RUBBER GASKET INSPECTOR TRIMMER MICROBIOLOGY - GENERAL ORDERABL ES Final Result [facility] [address] [place] [address], documented in this encounter Visit Diagnoses Diagnosis Urinary tract infection without hematuria, site unspecified documented in this encounter Care Teams Boiler Cleaner Relationship Specialty Start Date End Date Jaquan Conley MD [address] [place] [id number] PCP - General Internal Medicine 04/23/20 02/14/23 documented as of this encounter
--- OUTSIDE RECORDS SUMMARY | 2024-06-11 08:34 | XMS_ITS | Encounter Summary ---
[facility] Address [address] [place] [address] Care Team Providers Care Criminal Records Technician Name Role Phone Jaquan Conley MD Primary Care Provider [phone] [phone] Encounter Details Date Type Department Care Team (Late st Contact Info) Description 05/11/2021 12:00 PM EDT Lab [facility] [address] [place] [address] Anemia, unspecified type; Chronic kidney [...] Seen, 0-2 /HPF 05/11/2021 7:05 PM EDT [facility] WBC, UA Too Numerous to Count(A) None Seen, 0-2 /HPF 05/11/2021 7:05 PM EDT [facility] Bacteria, UA 4+(A) None Seen /HPF 05/11/2021 7:05 PM EDT [facility] Squamous Epithelial Cells, UA 3-6(A) None Seen, 0-2 /HPF 05/11/2021 7:05 PM EDT [facility] Hyaline Casts, UA 0-2 None Seen /LPF 05/11/2021 7:05 PM EDT [facility] Methodology Manual Light Microscopy 05/11/2021 7:05 PM EDT [facility] Urine Urine specimen collection, clean catch / Unknown Collection / Unknown 05/11/2021 12:16 PM EDT 05/11/2021 12:22 PM EDT Mare Kapoor APRN URINE ORDERABLES Final Result [facility]
[address] [place] [address], [place] [phone] * (ABNORMAL) Urinalysis without microscopic (no culture) - Urine, Clean Catch (05/11/2021 12:16 PM EDT) Color, UA Yellow Yellow, Straw 05/11/2021 6:28 PM EDT [facility] Appearance, UA Cloudy(A) Clear 05/11/2021 6:28 PM EDT [facility] pH, UA 6.0 5.0 - 8.0 05/11/2021 6:28 PM EDT [facility] Specific [place], UA 1.013 1.005 - 1.030 05/11/2021 6:28 PM EDT [facility] Glucose, UA Negative Negative 05/11/2021 6:28 PM EDT [facility] Ketones, UA Negative Negative 05/11/2021 6:28 PM EDT [facility] Bilirubin, UA Negative Negative 05/11/2021 6:28 PM EDT [facility] Blood, UA Moderate (2+)(A) Negative 05/11/2021 6:28 PM EDT [facility] Protein, UA 100 mg/dL (2+)(A) Negative 05/11/2021 6:28 PM EDT [facility] Leuk Esterase, UA Large (3+)(A) Negative 05/11/2021 6:28 PM EDT [facility] Nitrite, UA Positive(A) Negative 05/11/2021 6:28 PM EDT [facility] Urobilinogen, UA 0.2 E.U./dL 0.2 - 1.0 E.U./dL 05/11/2021 6:28 PM EDT [facility] Urine Urine specimen collection, clean catch / Unknown Collection / Unknown 05/11/2021 12:16 PM EDT 05/11/2021 12:22 PM EDT Mare Kapoor SHAKE CUTTER URINE ORDERABLES Final Result [facility]
[address] [place] [address], * (ABNORMAL) CBC Auto Differential (05/11/2021 12:16 PM EDT) WBC 6.65 3.40 - 10.80 10*3/mm3 05/11/2021 6:42 PM EDT [facility] RBC 4.02 3.77 - 5.28 10*6/mm3 05/11/2021 6:42 PM EDT [facility] Hemoglobin 12.4 12.0 - 15.9 g/dL 05/11/2021 6:42 PM EDT [facility] Hematocrit 37.6 34.0 - 46.6 % 05/11/2021 6:42 PM EDT [facility] MCV 93.5 79.0 - 97.0 fL 05/11/2021 6:42 PM EDT [facility] MCH 30.8 26.6 - 33.0 pg 05/11/2021 6:42 PM EDT [facility] MCHC 33.0 31.5 - 35.7 g/dL 05/11/2021 6:42 PM EDT [facility] RDW 12.0(L) 12.3 - 15.4 % 05/11/2021 6:42 PM EDT [facility] RDW-SD 41.4 37.0 - 54.0 fl 05/11/2021 6:42 PM EDT [facility] MPV 14.4(H) 6.0 - 12.0 fL 05/11/2021 6:42 PM EDT [facility] Platelets 137(L) 140 - 450 10*3/mm3 05/11/2021 6:42 PM EDT [facility] Neutrophil % 52.8 42.7 - 76.0 % 05/11/2021 6:42 PM EDT [facility] Lymphocyte % 38.2 19.6 - 45.3 % 05/11/2021 6:42 PM EDT [facility] Monocyte % 5.0 5.0 - 12.0 % 05/11/2021 6:42 PM EDT [facility] Eosinophil % 3.3 0.3 - 6.2 % 05/11/2021 6:42 PM EDT [facility] Basophil % 0.5 0.0 - 1.5 % 05/11/2021 6:42 PM EDT [facility] Neutrophils, Absolute 3.52 1.70 - 7.00 10*3/mm3 05/11/2021 6:42 PM EDT [facility] Lymphocytes, Absolute 2.54 0.70 - 3.10 10*3/mm3 05/11/2021 6:42 PM EDT [facility] Monocytes, Absolute 0.33 0.10 - 0.90 10*3/mm3 05/11/2021 6:42 PM EDT [facility] Eosinophils, Absolute 0.22 0.00 - 0.40 10*3/mm3 05/11/2021 6:42 PM EDT [facility] Basophils, Absolute 0.03 0.00 - 0.20 10*3/mm3 05/11/2021 6:42 PM EDT [facility] Blood Venipuncture / Unknown 05/11/2021 12:16 PM EDT 05/11/2021 12:23 PM EDT us Mare Kapoor SHAKE CUTTER LAB BLOOD ORDERABLES Final Resu lt [facility]
[address] [place] [address], * Vitamin D 25 Hydroxy (05/11/2021 12:16 PM EDT) 25 Hydroxy, Vitamin D 23.8 ng/ml 05/11/2021 7:17 PM EDT [facility] Blood Venipuncture / Unknown 05/11/2021 12:16 PM EDT 05/11/2021 12:23 PM EDT Narrative [facility] - 05/11/2021 7:17 PM EDT Reference Range for Total Vitamin D 25(OH) Deficiency <20.0 ng/mL Insufficiency 21-29 ng/mL Sufficiency 30-100 ng/mL Toxicity >100 ng/ml Results may be falsely increased if patient taking Biotin. Mare Kapoor SHAKE CUTTER LAB BLOOD ORDERABLES Final Resu lt [facility]
[address] [place] [address], * (ABNORMAL) Renal Function Panel (05/11/2021 12:16 PM EDT) [facility] Glucose 98 65 - 99 mg/dL 05/11/2021 7:49 PM EDT [facility] BUN 43(H) 6 - 20 mg/dL 05/11/2021 7:49 PM EDT [facility] Creatinine 3.74(H) 0.57 - 1.00 mg/dL 05/11/2021 7:49 PM EDT [facility] Sodium 144 136 - 145 mmol/L 05/11/2021 7:49 PM EDT [facility] Potassium 5.0 3.5 - 5.2 mmol/L 05/11/2021 7:49 PM EDT [facility] Chloride 111(H) 98 - 107 mmol/L 05/11/2021 7:49 PM EDT [facility] CO2 19.2(L) 22.0 - 29.0 mmol/L 05/11/2021 7:49 PM EDT [facility] Calcium 8.5(L) 8.6 - 10.5 mg/dL 05/11/2021 7:49 PM EDT [facility] Albumin 3.50 3.50 - 5.20 g/dL 05/11/2021 7:49 PM EDT [facility] Phosphorus 5.2(H) 2.5 - 4.5 mg/dL 05/11/2021 7:49 PM EDT [facility] Anion Gap 13.8 5.0 - 15.0 mmol/L 05/11/2021 7:49 PM EDT [facility] BUN/Creatinine Ratio 11.5 7.0 - 25.0 05/11/2021 7:49 PM EDT [facility] eGFR Non Amer 14(L) >60 mL/min/1.7 3 05/11/2021 7:49 PM EDT [facility] Comment:<15 Indicative of ki dney failure. eGFR Amer 05/11/2021 7:49 PM EDT [facility] Comment:<15 Indicative of ki dney failure. Blood Venipuncture / Unknown 05/11/2021 12:16 PM EDT 05/11/2021 12:23 PM EDT Narrative [facility] - 05/11/2021 7:49 PM EDT GFR Normal >60 Chronic Kidney Disease <60 Kidney Failure <15 Mare Kapoor SHAKE CUTTER LAB BLOOD ORDERABLES Final Resu lt [facility]
[address] [place] [address], * Protein, Urine, Random - Urine, Clean Catch (05/11/2021 12:16 PM EDT) Total Protein, Urine 116.0 mg/dL 05/11/2021 7:17 PM EDT [facility] Urine Urine specimen collection, clean catch / Unknown Collection / Unknown 05/11/2021 12:16 PM EDT 05/11/2021 12:22 PM EDT [facility] - 05/11/2021 7:17 PM EDT Reference intervals for random urine have not been established. Clinical usage is dependent upon physician's interpretation in combination with other laboratory tests. us Mare Claunch SHAKE CUTTER URINE ORDERABLES Final Result Performing Organization Address [facility] Co de Phone Number [facility]
[address] [place] [address], * Creatinine, Urine, Random - Urine, Clean Catch (05/11/2021 12:16 PM EDT) Creatinine, Urine 72.6 mg/dL 05/11/2021 7:17 PM EDT [facility] Urine Urine specimen collection, clean catch / Unknown Collection / Unknown 05/11/2021 12:16 PM EDT 05/11/2021 12:22 PM EDT [facility] - 05/11/2021 7:17 PM EDT Reference intervals for random urine have not been established. Clinical usage is dependent upon physician's interpretation in combination with other laboratory tests. us Mare Kapoor SHAKE CUTTER URINE ORDERABLES Final Result Performing Organization Address [facility] de Phone Number [facility]
[address] [place] [address], * (ABNORMAL) PTH, Intact (05/11/2021 12:15 PM EDT) PTH, Intact 286.0(H) 15.0 - 65.0 pg/mL 05/11/2021 7:07 PM EDT [facility] Blood Venipuncture / Unknown 05/11/2021 12:15 PM EDT 05/11/2021 12:23 PM EDT [facility] - 05/11/2021 7:07 PM EDT Results may be falsely decreased if patient taking Biotin. us Mare Kapoor SHAKE CUTTER LAB BLOOD ORDERABLES Final Resu lt [facility]
[address] [place] [address], [place] [phone] documented in this encounter Visit Diagnoses Diagnosis Anemia, unspecified type Chronic kidney disease, stage IV (severe) Chronic kidney disease, Stage IV (severe) Vitamin D deficiency documented in this encounter Care Teams Criminal Records Technician Relationship Specialty Start Date End Date Jaquan Conley MD [address] [place] [address] PCP - General Internal Medicine 04/23/20 02/14/23 documented as of this encounter
--- OUTSIDE RECORDS SUMMARY | 2024-06-11 08:34 | XMS_ITS | Encounter Summary ---
[facility] Address [address] [place] [id number] Care Team Providers Care Budder Name Role Phone Jaquan Conley MD Primary Care Provider [phone] Reason for Visit * Reason Comments Vomiting Encounter Details Date Type Department Care Team (Late st Contact Info) Description 09/24/2020 12:09 PM EST - 09/24/2020 3:19 PM EST Emergency [facility] EMERGENCY DEPARTMENT [address] [place] [address] Phill Gama, DO [address] [place] [address] Non-intractable vomiting with nausea, unspecified [...] Care Everywhere. * Nausea and Vomiting Adult Ecmb-fz-Pxzx (Tunisian) documented in this encounter Medications at Time of Discharge atorvastatin (LIPITOR) 40 MG tablet TAKE 1 TABLET EVERY DAY 0 12/23/2015 insulin lispro (humaLOG) 100 UNIT/ML injection Inject under the skin into the appropriate area as directed 3 (Three) Times a Day Before Meals. Uses Insulin pump sodium bicarbonate 650 MG tablet Take 2 tablets by mouth 2 (Two) Times a Day. 240 tablet 1 06/14/2018 Vitamin D, Ergocalciferol, 09610 units capsule 50,000 Int'l Units. 06/03/2020 acetaminophen (Tylenol) 325 MG tablet Take 2 tablets by mouth Every 6 (Six) Hours As Needed for Moderate Pain . 30 tablet 05/25/2020 06/07/20 24 amLODIPine-benazepr il (LOTREL 5-10) 5-10 MG per capsule Take 1 capsule by mouth Daily. 02/16/20 23 buPROPion SR (WELLBUTRIN SR) 150 MG 12 hr tablet Take 150 mg by mouth 2 (Two) Times a Day. 02/16/20 23 carvedilol (COREG) 6.25 MG tablet Take 1 tablet by mouth 2 (Two) Times a Day With Meals. 06/07/20 24 cefuroxime (CEFTIN) 250 MG tablet Take 1 [...] a Day. 28 g 05/01/2019 02/16/20 23 lisinopril (PRINIVIL,ZESTRIL) 10 MG tablet Takes 20mg daily 0 12/23/2015 24 ondansetron ODT (ZOFRAN-ODT) 4 MG disintegrating tablet Take 1 tablet by mouth Every 6 (Six) Hours As Needed for Nausea or Vomiting. 20 tablet 03/14/2018 06/07/20 24 promethazine (PHENERGAN) 12.5 MG tablet Take 1 [...] encounter ED Notes * Phill Gama, - 09/24/2020 3:19 PM EST Subjective 30-year-old [...] ??? 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 INDUCED 2006 [facility] History reviewed. No pertinent family history. [...] Condition Comment Discharge Stable Jaquan Conley MD [address] [place], [place] [id number] Where to Get Your Medications These medications were sent to [facility]/pharmacy #[id number] - [place], [place] - [address] [place] [address] - [phone] - [phone] [address] ?? promethazine 12.5 MG tablet Medication List No changes were made to your prescriptions during this visit. Phill Gama DO 10/03/20 [id number] documented in this encounter Plan of Treatment [...] * Scan Slide (09/24/2020 12:10 PM EST) Pathologist [facility] RBC Morphology Normal Normal 09/24/2020 12:49 PM EST [facility] WBC Morphology Normal Normal 09/24/2020 12:49 PM EST [facility] Platelet Estimate Adequate Normal 09/24/2020 12:49 PM EST [facility] Blood Venipuncture / Unknown 09/24/2020 12:10 PM EST 09/24/2020 12:12 PM EST us Phill Gama DO LAB BLOOD ORDERABLES Final Res ult [facility]
[address] [place] [id number], * (ABNORMAL) CBC Auto Differential (09/24/2020 12:10 PM EST) Pathologist [facility] WBC 11.87(H) 3.40 - 10.80 10*3/mm3 09/24/2020 12:49 PM EST [facility] RBC 4.15 3.77 - 5.28 10*6/mm3 09/24/2020 12:49 PM EST [facility] Hemoglobin 13.1 12.0 - 15.9 g/dL 09/24/2020 12:49 PM EST [facility] Hematocrit 38.6 34.0 - 46.6 % 09/24/2020 12:49 PM EST [facility] MCV 93.0 79.0 - 97.0 fL 09/24/2020 12:49 PM [facility] MCH 31.6 26.6 - 33.0 pg 09/24/2020 12:49 PM [facility] MCHC 33.9 31.5 - 35.7 g/dL 09/24/2020 12:49 PM [facility] RDW 11.9(L) 12.3 - 15.4 % 09/24/2020 12:49 PM [facility] RDW-SD 41.4 37.0 - 54.0 fl 09/24/2020 12:49 PM [facility] MPV 13.1(H) 6.0 - 12.0 fL 09/24/2020 12:49 PM [facility] Platelets 226 140 - 450 10*3/mm3 09/24/2020 12:49 PM [facility] Neutrophil % 57.4 42.7 - 76.0 % 09/24/2020 12:49 PM [facility] Lymphocyte % 33.9 19.6 - 45.3 % 09/24/2020 12:49 PM [facility] Monocyte % 5.6 5.0 - 12.0 % 09/24/2020 12:49 PM [facility] Eosinophil % 2.4 0.3 - 6.2 % 09/24/2020 12:49 PM [facility] Basophil % 0.4 0.0 - 1.5 % 09/24/2020 12:49 PM [facility] Immature Grans % 0.3 0.0 - 0.5 % 09/24/2020 12:49 PM [facility] Neutrophils, Absolute 6.81 1.70 - 7.00 10*3/mm3 09/24/2020 12:49 PM [facility] Lymphocytes, Absolute 4.02(H) 0.70 - 3.10 10*3/mm3 09/24/2020 12:49 PM [facility] Monocytes, Absolute 0.67 0.10 - 0.90 10*3/mm3 09/24/2020 12:49 PM [facility] Eosinophils, Absolute 0.29 0.00 - 0.40 10*3/mm3 09/24/2020 12:49 PM EST [facility] Basophils, Absolute 0.05 0.00 - 0.20 10*3/mm3 09/24/2020 12:49 PM EST [facility] Immature Grans, Absolute 0.03 0.00 - 0.05 10*3/mm3 09/24/2020 12:49 PM EST [facility] nRBC 0.0 0.0 - 0.2 /100 WBC 09/24/2020 12:49 PM EST [facility] Blood Venipuncture / Unknown 09/24/2020 12:10 PM EST 09/24/2020 12:12 PM EST Phill Feast LAB BLOOD ORDERABLES Final Res ult [facility]
[address] [place] [address], [place] [phone] * Gold Top - SST (09/24/2020 12:10 PM EST) Extra Tube Hold for add-ons. 09/24/2020 1:15 PM EST [facility] Comment:Auto resulted. Blood Venipuncture / Unknown 09/24/2020 12:10 PM EST 09/24/2020 12:12 PM EST [employer] LAB BLOOD ORDER ONLY Final Res ult [facility]
[address] [place] [address], [place] [phone] * Lavender Top (09/24/2020 12:10 PM EST) Extra Tube hold for add-on 09/24/2020 1:15 PM EST [facility] Comment:Auto resulted Blood Venipuncture / Unknown 09/24/2020 12:10 PM EST 09/24/2020 12:12 PM EST Phillabi Gama LAB BLOOD ORDER ONLY Final Res ult Performing Organization Address City/[facility]/ZIP Co de Phone Number [facility]
[address] [place] [address], [place] [phone] * Green Top (Gel) (09/24/2020 12:10 PM EST) Extra Tube Hold for add-ons. 09/24/2020 1:15 PM EST [facility] Comment:Auto resulted. Blood Venipuncture / Unknown 09/24/2020 12:10 PM EST 09/24/2020 12:12 PM EST Phillabi Gama LAB BLOOD ORDER ONLY Final Res ult Performing Organization Address [facility]/ZIP Co de Phone Number [facility]
[address] [place] [address], [place] [phone] * Light Blue Top (09/24/2020 12:10 PM EST) Extra Tube hold for add-on 09/24/2020 1:15 PM EST [facility] Comment:Auto resulted Blood Venipuncture / Unknown 09/24/2020 12:10 PM EST 09/24/2020 12:12 PM EST Phillabi Gama LAB BLOOD ORDER ONLY Final Res ult Performing Organization Address City/[facility]/ZIP Co de Phone Number [facility]
[address] [place] [address], [place] [phone] * Lipase (09/24/2020 12:10 PM EST) Lipase 22 13 - 60 U/L 09/24/2020 12:38 PM EST [facility] Blood Venipuncture / Unknown 09/24/2020 12:10 PM EST 09/24/2020 12:12 PM EST us Phill Gama DO LAB BLOOD ORDERABLES Final Res ult [facility]
[address] [place] [id number], * (ABNORMAL) Comprehensive Metabolic Panel (09/24/2020 12:10 PM EST) Glucose 48(LL) 65 - 99 mg/dL 09/24/2020 12:49 PM EST [facility] BUN 45(H) 6 - 20 mg/dL 09/24/2020 12:49 PM [facility] Creatinine 3.71(H) 0.57 - 1.00 mg/dL 09/24/2020 12:49 PM [facility] Sodium 139 136 - 145 mmol/L 09/24/2020 12:49 PM [facility] Potassium 4.4 3.5 - 5.2 mmol/L 09/24/2020 12:49 PM [facility] Chloride 114(H) 98 - 107 mmol/L 09/24/2020 12:49 PM [facility] CO2 15.5(L) 22.0 - 29.0 mmol/L 09/24/2020 12:49 PM [facility] Calcium 8.5(L) 8.6 - 10.5 mg/dL 09/24/2020 12:49 PM [facility] Total Protein 6.0 6.0 - 8.5 g/dL 09/24/2020 12:49 PM [facility] Albumin 3.70 3.50 - 5.20 g/dL 09/24/2020 12:49 PM EST [facility] ALT (SGPT) 7 1 - 33 U/L 09/24/2020 12:49 PM [facility] AST (SGOT) 8 1 - 32 U/L 09/24/2020 12:49 PM [facility] Alkaline Phosphatase 112 39 - 117 U/L 09/24/2020 12:49 PM EST [facility] Total Bilirubin 0.2 0.0 - 1.2 mg/dL 09/24/2020 12:49 PM EST [facility] eGFR Non Amer 14(L) >60 mL/min/1.7 3 09/24/2020 12:49 PM EST [facility] Comment:<15 Indicative of ki dney failure. eGFR Amer 09/24/2020 12:49 PM EST [facility] Comment:<15 Indicative of ki dney failure. Globulin 2.3 gm/dL 09/24/2020 12:49 PM EST [facility] A/G Ratio 1.6 g/dL 09/24/2020 12:49 PM EST [facility] BUN/Creatinine Ratio 12.1 7.0 - 25.0 09/24/2020 12:49 PM [facility] Anion Gap 9.5 5.0 - 15.0 mmol/L 09/24/2020 12:49 PM [facility] Blood Venipuncture / Unknown 09/24/2020 12:10 PM EST 09/24/2020 12:12 PM EST Narrative [facility] - 09/24/2020 12:49 PM EST GFR Normal >60 Chronic Kidney Disease <60 Kidney Failure <15 us Phill Gama DO LAB BLOOD ORDERABLES Final Res ult [facility]
[address] [place] [id number], documented in this encounter Visit Diagnoses Diagnosis [...] - Reason: Contraindicated - Comment: Pt had tyelnol @ 1150 at pcp office.) lidocaine (XYLOCAINE) [...] [id number] documented in this encounter Care Teams Budder Relationship Specialty Start Date End Date Jaquan Conley MD [address] [place], [place] [id number] PCP - General Internal Medicine 04/23/20 02/14/23 documented as of this encounter
--- OUTSIDE RECORDS SUMMARY | 2024-06-11 08:34 | XMS_ITS | Encounter Summary ---
[facility] Address [address] [place] [address] Care Team Providers Care Inspector Government Property Name Role Phone Jaquan Conley MD Primary Care Provider [phone] Encounter Details Date Type Department Care Team (Late st Contact Info) Description 12/02/2020 10:20 AM EDT Lab [facility] [address] [place] [address] Chronic kidney disease, stage IV [...] No growth KIRA 12/03/2020 4:17 PM EDT [facility] Urine Urine specimen collection, clean catch / Unknown Collection / Unknown 12/02/2020 10:18 AM EDT 12/02/2020 11:18 AM EDT us Mare Kapoor DOUBLING MACHINE OPERATOR MICROBIOLOGY - GENERAL ORDERABL ES Final Result [facility]
[address] [place] [address], documented in this encounter Visit Diagnoses Diagnosis Chronic kidney disease, stage IV (severe) Chronic kidney disease, Stage IV (severe) documented in this encounter Care Teams Inspector Government Property Relationship Specialty Start Date End Date Jaquan Conley MD [address] [place] [address] PCP - General Internal Medicine 04/23/20 02/14/23 documented as of this encounter
--- OUTSIDE RECORDS SUMMARY | 2024-06-11 08:34 | XMS_ITS | Encounter Summary ---
Author Organization [facility] Address [address] [place] [address] Care Team Providers Care Metal Refiner Name Role Phone Jaquan Conley MD Primary Care Provider [phone] Encounter Details Date Type Department Care Team (Late st Contact Info) Description 07/14/2020 2:25 PM EST Lab [facility] [address] [place] [address] Chronic kidney disease, stage V; [...] Seen, 0-2 /HPF 07/14/2020 11:30 PM EST [facility] WBC, UA 13-20(A) None Seen, 0-2 /HPF 07/14/2020 11:30 PM EST [facility] Bacteria, UA 2+(A) None Seen /HPF 07/14/2020 11:30 PM EST [facility] Squamous Epithelial Cells, UA 0-2 None Seen, 0-2 /HPF 07/14/2020 11:30 PM EST [facility] Hyaline Casts, UA 0-2 None Seen /LPF 07/14/2020 11:30 PM EST [facility] Methodology Automated Microscopy 07/14/2020 11:30 PM EST [facility] Urine Urine specimen collection, clean catch / Unknown Collection / Unknown 07/14/2020 2:52 PM EST 07/14/2020 4:47 PM EST Adina Sands MD URINE ORDERABLES Final Re sult Performing Organization Address [facility]/ZIP Co de Phone Number [facility]
[address] [place] [address], * (ABNORMAL) Urinalysis without microscopic (no culture) - Urine, Clean Catch (07/14/2020 2:52 PM EST) Color, UA Yellow Yellow, Straw 07/14/2020 11:00 PM [facility] Appearance, UA Clear Clear 07/14/2020 11:00 PM [facility] pH, UA 6.0 5.0 - 8.0 07/14/2020 11:00 PM [facility] Specific [address], UA 1.013 1.005 - 1.030 07/14/2020 11:00 PM [facility] Glucose, UA Negative Negative 07/14/2020 11:00 PM [facility] Ketones, UA Negative Negative 07/14/2020 11:00 PM [facility] Bilirubin, UA Negative Negative 07/14/2020 11:00 PM [facility] Blood, UA Trace(A) Negative 07/14/2020 11:00 PM [facility] Protein, UA >=300 mg/dL (3+)(A) Negative 07/14/2020 11:00 PM [facility] Leuk Esterase, UA Trace(A) Negative 07/14/2020 11:00 PM [facility] Nitrite, UA Negative Negative 07/14/2020 11:00 PM [facility] Urobilinogen, UA 0.2 E.U./dL 0.2 - 1.0 E.U./dL 07/14/2020 11:00 PM [facility] Urine Urine specimen collection, clean catch / Unknown Collection / Unknown 07/14/2020 2:52 PM EST 07/14/2020 4:47 PM EST Adina Sands MD URINE ORDERABLES Final Re sult Performing Organization Address [facility]/ZIP Co de Phone Number [facility]
[address] [place] [address], * (ABNORMAL) CBC Auto Differential (07/14/2020 2:52 PM EST) WBC 6.81 3.40 - 10.80 10*3/mm3 07/14/2020 10:56 PM [facility] RBC 4.16 3.77 - 5.28 10*6/mm3 07/14/2020 10:56 PM [facility] Hemoglobin 13.1 12.0 - 15.9 g/dL 07/14/2020 10:56 PM [facility] Hematocrit 40.0 34.0 - 46.6 % 07/14/2020 10:56 PM [facility] MCV 96.2 79.0 - 97.0 fL 07/14/2020 10:56 PM [facility] MCH 31.5 26.6 - 33.0 pg 07/14/2020 10:56 PM [facility] MCHC 32.8 31.5 - 35.7 g/dL 07/14/2020 10:56 PM [facility] RDW 12.1(L) 12.3 - 15.4 % 07/14/2020 10:56 PM [facility] RDW-SD 43.2 37.0 - 54.0 fl 07/14/2020 10:56 PM [facility] MPV 13.8(H) 6.0 - 12.0 fL 07/14/2020 10:56 PM [facility] Platelets 198 140 - 450 10*3/mm3 07/14/2020 10:56 PM [facility] Neutrophil % 60.0 42.7 - 76.0 % 07/14/2020 10:56 PM [facility] Lymphocyte % 28.9 19.6 - 45.3 % 07/14/2020 10:56 PM [facility] Monocyte % 5.4 5.0 - 12.0 % 07/14/2020 10:56 PM [facility] Eosinophil % 5.0 0.3 - 6.2 % 07/14/2020 10:56 PM [facility] Basophil % 0.6 0.0 - 1.5 % 07/14/2020 10:56 PM [facility] Immature Grans % 0.1 0.0 - 0.5 % 07/14/2020 10:56 PM [facility] Neutrophils, Absolute 4.08 1.70 - 7.00 10*3/mm3 07/14/2020 10:56 PM [facility] Lymphocytes, Absolute 1.97 0.70 - 3.10 10*3/mm3 07/14/2020 10:56 PM [facility] Monocytes, Absolute 0.37 0.10 - 0.90 10*3/mm3 07/14/2020 10:56 PM [facility] Eosinophils, Absolute 0.34 0.00 - 0.40 10*3/mm3 07/14/2020 10:56 PM [facility] Basophils, Absolute 0.04 0.00 - 0.20 10*3/mm3 07/14/2020 10:56 PM [facility] Immature Grans, Absolute 0.01 0.00 - 0.05 10*3/mm3 07/14/2020 10:56 PM [facility] nRBC 0.1 0.0 - 0.2 /100 WBC 07/14/2020 10:56 PM [facility] Blood Venipuncture / Unknown 07/14/2020 2:52 PM EST 07/14/2020 3:25 PM EST us Adina Sands MD LAB BLOOD ORDERABLES Amy foreman Result [facility]
[address] [place] [address], * (ABNORMAL) Iron Profile (07/14/2020 2:52 PM EST) Pathologist [facility] Iron 77 37 - 145 mcg/dL 07/14/2020 11:45 PM EST [facility] Iron Saturation (TSAT) 27 20 - 50 % 07/14/2020 11:45 PM EST [facility] Transferrin 190(L) 200 - 360 mg/dL 07/14/2020 11:45 PM EST [facility] TIBC 283(L) 298 - 536 mcg/dL 07/14/2020 11:45 PM EST [facility] Blood Venipuncture / Unknown 07/14/2020 2:52 PM EST 07/14/2020 3:25 PM EST Adina Sands MD LAB BLOOD ORDERABLES Amy l Result Performing Organization Address [facility]/ZIP Co de Phone Number [facility]
[address] [place] [address], * Protein, Urine, Random - Urine, Clean Catch (07/14/2020 2:52 PM EST) Total Protein, Urine 179.0 mg/dL 07/14/2020 11:16 PM EST [facility] Urine Urine specimen collection, clean catch / Unknown Collection / Unknown 07/14/2020 2:52 PM EST 07/14/2020 4:47 PM EST Narrative [facility] - 07/14/2020 11:16 PM EST Reference intervals for random urine have not been established. Clinical usage is dependent upon physician's interpretation in combination with other laboratory tests. Adina Sands MD URINE ORDERABLES Final Re sult Performing Organization Address City/[facility]/ZIP Co de Phone Number [facility]
[address] [place] [address], * Creatinine, Urine, Random - Urine, Clean Catch (07/14/2020 2:52 PM EST) Creatinine, Urine 91.7 mg/dL 07/14/2020 11:16 PM EST [facility] Urine Urine specimen collection, clean catch / Unknown Collection / Unknown 07/14/2020 2:52 PM EST 07/14/2020 4:47 PM EST Narrative [facility] - 07/14/2020 11:16 PM EST Reference intervals for random urine have not been established. Clinical usage is dependent upon physician's interpretation in combination with other laboratory tests. Adina Sands MD URINE ORDERABLES Final Re sult [facility]
[address] [place] [address], * (ABNORMAL) Renal Function Panel (07/14/2020 2:52 PM EST) Glucose 139(H) 65 - 99 mg/dL 07/14/2020 11:45 PM EST [facility] BUN 25(H) 6 - 20 mg/dL 07/14/2020 11:45 PM [facility] Creatinine 3.03(H) 0.57 - 1.00 mg/dL 07/14/2020 11:45 PM EST [facility] Sodium 140 136 - 145 mmol/L 07/14/2020 11:45 PM [facility] Potassium 4.4 3.5 - 5.2 mmol/L 07/14/2020 11:45 PM [facility] Chloride 110(H) 98 - 107 mmol/L 07/14/2020 11:45 PM [facility] CO2 21.5(L) 22.0 - 29.0 mmol/L 07/14/2020 11:45 PM EST [facility] Calcium 9.1 8.6 - 10.5 mg/dL 07/14/2020 11:45 PM [facility] Albumin 4.10 3.50 - 5.20 g/dL 07/14/2020 11:45 PM [facility] Phosphorus 3.0 2.5 - 4.5 mg/dL 07/14/2020 11:45 PM [facility] Anion Gap 8.5 5.0 - 15.0 mmol/L 07/14/2020 11:45 PM [facility] BUN/Creatinine Ratio 8.3 7.0 - 25.0 07/14/2020 11:45 PM EST [facility] eGFR Non Amer 18(L) >60 mL/min/1.7 3 07/14/2020 11:45 PM EST [facility] Blood Venipuncture / Unknown 07/14/2020 2:52 PM EST 07/14/2020 3:25 PM EST Narrative [facility] - 07/14/2020 11:45 PM EST GFR Normal >60 Chronic Kidney Disease <60 Kidney Failure <15 Adina Sands MD LAB BLOOD ORDERABLES Amy l Result [facility]
[address] [place] [address], documented in this encounter Visit Diagnoses Diagnosis Chronic kidney disease, stage V Chronic kidney disease, Stage V Diabetes mellitus without complication Type II or unspecified type diabetes mellitus without mention of complication, not stated as uncontrolled Anemia, unspecified type documented in this encounter Care Teams Metal Refiner Relationship Specialty Start Date End Date Jaquan Conley MD [address] [place] [id number] PCP - General Internal Medicine 04/23/20 02/14/23 documented as of this encounter
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
--- OUTSIDE RECORDS SUMMARY | 2024-06-11 08:34 | XMS_ITS | Encounter Summary ---
[facility] Address [address] [place] [address] Care Team Providers Care Clinical Sociologist Name Role Phone Jaquan Conley MD Primary Care Provider [phone] [phone] Encounter Details Date Type Department Care Team (Late st Contact Info) Description 11/20/2020 3:00 PM EDT Lab [facility] [address] [place] [address] Anemia, unspecified type; CKD stage [...] Seen, 0-2 /HPF 11/20/2020 11:27 PM EDT [facility] WBC, UA 3-5(A) None Seen, 0-2 /HPF 11/20/2020 11:27 PM EDT [facility] Bacteria, UA 4+(A) None Seen /HPF 11/20/2020 11:27 PM EDT [facility] Squamous Epithelial Cells, UA 7-12(A) None Seen, 0-2 /HPF 11/20/2020 11:27 PM EDT [facility] Hyaline Casts, UA 3-6 None Seen /LPF 11/20/2020 11:27 PM EDT [facility] Methodology Automated Microscopy 11/20/2020 11:27 PM T [facility] Urine Urine specimen collection, clean catch / Unknown Collection / Unknown 11/20/2020 3:06 PM EDT 11/20/2020 3:54 PM EDT John Garcia MD URINE ORDERABLES Final Resul t [facility]
[address] [place] [address], [place] [phone] * (ABNORMAL) Urinalysis without microscopic (no culture) - Urine, Clean Catch (11/20/2020 3:06 PM EDT) Color, UA Yellow Yellow, Straw 11/20/2020 11:30 PM EDT [facility] Appearance, UA Clear Clear 11/20/2020 11:30 PM EDT [facility] pH, UA 6.0 5.0 - 8.0 11/20/2020 11:30 PM EDT [facility] Specific Coats, UA 1.012 1.005 - 1.030 11/20/2020 11:30 PM EDT [facility] Glucose, UA Negative Negative 11/20/2020 11:30 PM EDT [facility] Ketones, UA Negative Negative 11/20/2020 11:30 PM EDT [facility] Bilirubin, UA Negative Negative 11/20/2020 11:30 PM EDT [facility] Blood, UA Small (1+)(A) Negative 11/20/2020 11:30 PM EDT [facility] Protein, UA >=300 mg/dL (3+)(A) Negative 11/20/2020 11:30 PM EDT [facility] Leuk Esterase, UA Negative Negative 11/20/2020 11:30 PM EDT [facility] Nitrite, UA Negative Negative 11/20/2020 11:30 PM EDT [facility] Urobilinogen, UA 0.2 E.U./dL 0.2 - 1.0 E.U./dL 11/20/2020 11:30 PM EDT [facility] Urine Urine specimen collection, clean catch / Unknown Collection / Unknown 11/20/2020 3:06 PM EDT 11/20/2020 3:54 PM EDT John Garcia MD URINE ORDERABLES Final Resul t [facility]
[address] [place] [address], * (ABNORMAL) CBC Auto Differential (11/20/2020 3:06 PM EDT) WBC 7.86 3.40 - 10.80 10*3/mm3 11/21/2020 12:27 AM [facility] RBC 4.62 3.77 - 5.28 10*6/mm3 11/21/2020 12:27 AM [facility] Hemoglobin 14.2 12.0 - 15.9 g/dL 11/21/2020 12:27 AM [facility] Hematocrit 44.5 34.0 - 46.6 % 11/21/2020 12:27 AM [facility] MCV 96.3 79.0 - 97.0 fL 11/21/2020 12:27 AM [facility] MCH 30.7 26.6 - 33.0 pg 11/21/2020 12:27 AM [facility] MCHC 31.9 31.5 - 35.7 g/dL 11/21/2020 12:27 AM [facility] RDW 11.8(L) 12.3 - 15.4 % 11/21/2020 12:27 AM [facility] RDW-SD 41.9 37.0 - 54.0 fl 11/21/2020 12:27 AM [facility] MPV 13.7(H) 6.0 - 12.0 fL 11/21/2020 12:27 AM [facility] Platelets 215 140 - 450 10*3/mm3 11/21/2020 12:27 AM EDT [facility] Neutrophil % 51.1 42.7 - 76.0 % 11/21/2020 12:27 AM EDT [facility] Lymphocyte % 39.1 19.6 - 45.3 % 11/21/2020 12:27 AM EDT [facility] Monocyte % 4.3(L) 5.0 - 12.0 % 11/21/2020 12:27 AM EDT [facility] Eosinophil % 4.8 0.3 - 6.2 % 11/[facility]2020 [facility] Basophil % 0.4 0.0 - 1.5 % 11/21/2020 12:[facility] Neutrophils, Absolute 4.02 1.70 - 7.00 10*3/mm3 11/21/2020 12:[facility] Lymphocytes, Absolute 3.07 0.70 - 3.10 10*3/mm3 11/21/2020 12:27 AM EDT [facility] Monocytes, Absolute 0.34 0.10 - 0.90 10*3/mm3 11/21/2020 12:[facility] Eosinophils, Absolute 0.38 0.00 - 0.40 10*3/mm3 11/21/2020 12:[facility] Basophils, Absolute 0.03 0.00 - 0.20 10*3/mm3 11/21/2020 12:27 AM [facility] Blood Venipuncture / Unknown 11/20/2020 3:06 PM EDT 11/20/2020 3:54 PM EDT John Garcia MD LAB BLOOD ORDERABLES Final R esult [facility]
[address] [place] [address], [place] [phone] * (ABNORMAL) Renal Function Panel (11/20/2020 3:06 PM EDT) [facility] Glucose 211(H) 65 - 99 mg/dL 11/21/2020 12:13 AM [facility] BUN 30(H) 6 - 20 mg/dL 11/21/2020 12:13 AM [facility] Creatinine 2.86(H) 0.57 - 1.00 mg/dL 11/21/2020 12:13 AM [facility] Sodium 137 136 - 145 mmol/L 11/21/2020 12:13 AM [facility] Potassium 4.9 3.5 - 5.2 mmol/L 11/21/2020 12:13 AM [facility] Chloride 108(H) 98 - 107 mmol/L 11/21/2020 12:13 AM [facility] CO2 18.7(L) 22.0 - 29.0 mmol/L 11/21/2020 12:13 AM [facility] Calcium 9.2 8.6 - 10.5 mg/dL 11/21/2020 12:13 AM [facility] Albumin 4.10 3.50 - 5.20 g/dL 11/21/2020 12:13 AM [facility] Phosphorus 3.6 2.5 - 4.5 mg/dL 11/21/2020 12:13 AM [facility] Anion Gap 10.3 5.0 - 15.0 mmol/L 11/21/2020 12:13 AM [facility] BUN/Creatinine Ratio 10.5 7.0 - 25.0 11/21/2020 12:13 AM [facility] eGFR Non Amer 19(L) >60 mL/min/1.7 3 11/21/2020 12:13 AM [facility] Blood Venipuncture / Unknown 11/20/2020 3:06 PM EDT 11/20/2020 3:54 PM T [facility] - 11/21/2020 12:13 AM EDT GFR Normal >60 Chronic Kidney Disease <60 Kidney Failure <15 John Garcia MD LAB BLOOD ORDERABLES Final R esult [facility]
[address] [place] [address], [place] [phone] documented in this encounter Visit Diagnoses Diagnosis Anemia, unspecified type CKD stage G5/A3, GFR <15 and albumin creatinine ratio >300 mg/g documented in this encounter Care Teams Clinical Sociologist Relationship Specialty Start Date End Date Jaquan Conley MD [address] [place] [address] PCP - General Internal Medicine 04/23/20 02/14/23 documented as of this encounter
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
--- OUTSIDE RECORDS SUMMARY | 2024-06-11 08:34 | XMS_ITS | Encounter Summary ---
[facility] Address [address] [place] [address] Care Team Providers Care Monumental Stonemason Name Role Phone Jaquan Conley MD Primary Care Provider [phone] [phone] Reason for Visit * Reason Comments Leg Pain Encounter Details Date Type Department Care Team (Late st Contact Info) Description 05/15/2020 9:06 PM EDT - 05/16/2020 1:09 AM EDT Emergency [facility] [address] [place] [id number] Jaquan Arenas, Acute pain of both knees (Primary Dx); [...] Care Everywhere. * Acute Knee Pain Adult (Trinidadian) * Hypertension Adult (Trinidadian) * Nonspecific Chest Pain Adult (Trinidadian) documented in this encounter Medications at [...] ??? 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 INDUCED 2006 [facility] History reviewed. No pertinent family history. [...] CARDIOVASCULAR: Good Peripheral pulses. Good capillary refill. [place] and warm extremities. MUSCULOSKELETAL: No compartment syndrome. [...] of May 16 004 Emma May 15, [id number] Bilateral knee x-rays interpreted by me reveal no fractures no dislocations. [PF] 2244 Chest x-ray interpreted by me shows no evidence of any cardiomegaly, effusion, infiltrate, or bony abnormality. [PF] Fri May 16, 2020 001 EKG interpreted by me reveals sinus rhythm [...] Name Type Priority Associated Diagnoses Date /Time Bailey Draw Lab STAT 05/15/2020 1 1:02 PM [...] * Scan Slide (05/15/2020 11:02 PM EDT) Pathologist [facility] RBC Morphology Normal Normal 05/15/2020 11:51 PM EDT [facility] WBC Morphology Normal Normal 05/15/2020 11:51 PM EDT [facility] Platelet Estimate Adequate Normal 05/15/2020 11:51 PM EDT [facility] Blood Venipuncture / Unknown 05/15/2020 11:02 PM EDT 05/15/2020 11:15 PM EDT us Jaquan Arenas DO LAB BLOOD ORDERABLES Final Resu lt [facility]
[address] [place] [address], * (ABNORMAL) CBC Auto Differential (05/15/2020 11:02 PM EDT) WBC 7.11 3.40 - 10.80 10*3/mm3 05/15/2020 11:51 PM EDT [facility] RBC 3.68(L) 3.77 - 5.28 10*6/mm3 05/15/2020 11:51 PM EDT [facility] Hemoglobin 11.4(L) 12.0 - 15.9 g/dL 05/15/2020 11:51 PM EDT [facility] Hematocrit 36.0 34.0 - 46.6 % 05/15/2020 11:51 PM EDT [facility] MCV 97.8(H) 79.0 - 97.0 fL 05/15/2020 11:51 PM EDT [facility] MCH 31.0 26.6 - 33.0 pg 05/15/2020 11:51 PM EDT [facility] MCHC 31.7 31.5 - 35.7 g/dL 05/15/2020 11:51 PM EDT [facility] RDW 13.1 12.3 - 15.4 % 05/15/2020 11:51 PM EDT [facility] RDW-SD 46.7 37.0 - 54.0 fl 05/15/2020 11:51 PM EDT [facility] MPV 13.1(H) 6.0 - 12.0 fL 05/15/2020 11:51 PM EDT [facility] Platelets 168 140 - 450 10*3/mm3 05/15/2020 11:51 PM EDT [facility] Neutrophil % 50.5 42.7 - 76.0 % 05/15/2020 11:51 PM EDT [facility] Lymphocyte % 37.6 19.6 - 45.3 % 05/15/2020 11:51 PM EDT [facility] Monocyte % 7.3 5.0 - 12.0 % 05/15/2020 11:51 PM EDT [facility] Eosinophil % 3.8 0.3 - 6.2 % 05/15/2020 11:51 PM EDT [facility] Basophil % 0.4 0.0 - 1.5 % 05/15/2020 11:51 PM EDT [facility] Immature Grans % 0.4 0.0 - 0.5 % 05/15/2020 11:51 PM EDT [facility] Neutrophils, Absolute 3.59 1.70 - 7.00 10*3/mm3 05/15/2020 11:51 PM EDT [facility] Lymphocytes, Absolute 2.67 0.70 - 3.10 10*3/mm3 05/15/2020 11:51 PM EDT [facility] Monocytes, Absolute 0.52 0.10 - 0.90 10*3/mm3 05/15/2020 11:51 PM EDT [facility] Eosinophils, Absolute 0.27 0.00 - 0.40 10*3/mm3 05/15/2020 11:51 PM EDT [facility] Basophils, Absolute 0.03 0.00 - 0.20 10*3/mm3 05/15/2020 11:51 PM EDT [facility] Immature Grans, Absolute 0.03 0.00 - 0.05 10*3/mm3 05/15/2020 11:51 PM EDT [facility] nRBC 0.0 0.0 - 0.2 /100 WBC 05/15/2020 11:51 PM EDT [facility] Blood Venipuncture / Unknown 05/15/2020 11:02 PM EDT 05/15/2020 11:15 PM EDT us Jaquan Arenas DO LAB BLOOD ORDERABLES Final Resu lt [facility]
[address] [place] [id number], * Gold Top - [facility] (05/15/2020 11:02 PM EDT) Extra Tube Hold for add-ons. 05/16/2020 12:15 AM EDT [facility] Comment:Auto resulted. Blood Venipuncture / Unknown 05/15/2020 11:02 PM EDT 05/15/2020 11:15 PM EDT us Jaquan Arenas DO LAB BLOOD ORDER ONLY Final Resu lt Performing Organization Address City/[facility]/ZIP Co de Phone Number [facility]
[address] [place] [address], [place] [phone] * Lavender Top (05/15/2020 11:02 PM EDT) Extra Tube hold for add-on 05/16/2020 12:15 AM EDT [facility] Comment:Auto resulted Blood Venipuncture / Unknown 05/15/2020 11:02 PM EDT 05/15/2020 11:15 PM EDT us Jaquan Arenas DO LAB BLOOD ORDER ONLY Final Resu lt Performing Organization Address [facility]/ZIP Co de Phone Number [facility]
[address] [place] [address], [place] [phone] * Green Top (Gel) (05/15/2020 11:02 PM EDT) Extra Tube Hold for add-ons. 05/16/2020 12:15 AM EDT [facility] Comment:Auto resulted. Blood Venipuncture / Unknown 05/15/2020 11:02 PM EDT 05/15/2020 11:15 PM EDT us Jaquan Arenas DO LAB BLOOD ORDER ONLY Final Resu lt Performing Organization Address City/[facility]/ZIP Co de Phone Number [facility]
[address] [place] [id number], [place] [phone] * Light Blue Top (05/15/2020 11:02 PM EDT) Extra Tube hold for add-on 05/16/2020 12:15 AM EDT [facility] Comment:Auto resulted Blood Venipuncture / Unknown 05/15/2020 11:02 PM EDT 05/15/2020 11:15 PM EDT us Jaquan W Arenas DO LAB BLOOD ORDER ONLY Final Resu lt Performing Organization Address [facility]/ZIP Co de Phone Number [facility]
[address] [place] [address], * Troponin (05/15/2020 11:02 PM EDT) Troponin T <0.010 0.000 - 0.030 ng/mL 05/15/2020 11:36 PM EDT [facility] Blood Venipuncture / Unknown 05/15/2020 11:02 PM EDT 05/15/2020 11:15 PM EDT Narrative [facility] - 05/15/2020 11:36 PM EDT [...] falsely decreased if patient taking Biotin. us Jaquan Arenas DO LAB BLOOD ORDERABLES Final Resu lt Performing Organization Address [facility] Co de Phone Number [facility]
[address] [place] [address], * (ABNORMAL) Comprehensive Metabolic Panel (05/15/2020 11:02 PM EDT) Glucose 111(H) 65 - 99 mg/dL 05/15/2020 11:34 PM EDT [facility] BUN 31(H) 6 - 20 mg/dL 05/15/2020 11:34 PM EDT [facility] Creatinine 4.11(H) 0.57 - 1.00 mg/dL 05/15/2020 11:34 PM EDT [facility] Sodium 143 136 - 145 mmol/L 05/15/2020 11:34 PM EDT [facility] Potassium 4.7 3.5 - 5.2 mmol/L 05/15/2020 11:34 PM EDT [facility] Chloride 113(H) 98 - 107 mmol/L 05/15/2020 11:34 PM EDT [facility] CO2 19.3(L) 22.0 - 29.0 mmol/L 05/15/2020 11:34 PM T [facility] Calcium 9.0 8.6 - 10.5 mg/dL 05/15/2020 11:34 PM [facility] Total Protein 6.8 6.0 - 8.5 g/dL 05/15/2020 11:34 PM [facility] Albumin 4.00 3.50 - 5.20 g/dL 05/15/2020 11:34 PM [facility] ALT (SGPT) 11 1 - 33 U/L 05/15/2020 11:34 PM [facility] AST (SGOT) 12 1 - 32 U/L 05/15/2020 11:34 PM [facility] Alkaline Phosphatase 87 39 - 117 U/L 05/15/2020 11:34 PM [facility] Total Bilirubin 0.2 0.0 - 1.2 mg/dL 05/15/2020 11:34 PM [facility] eGFR Non Amer 13(L) >60 mL/min/1.7 3 05/15/2020 11:34 PM [facility] Comment:<15 Indicative of ki dney failure. eGFR Amer 05/15/2020 11:34 PM [facility] Comment:<15 Indicative of ki dney failure. Globulin 2.8 gm/dL 05/15/2020 11:34 PM [facility] A/G Ratio 1.4 g/dL 05/15/2020 11:34 PM [facility] BUN/Creatinine Ratio 7.5 7.0 - 25.0 05/15/2020 11:34 PM [facility] Anion Gap 10.7 5.0 - 15.0 mmol/L 05/15/2020 11:34 PM [facility] Blood Venipuncture / Unknown 05/15/2020 11:02 PM EDT 05/15/2020 11:15 PM EDT Narrative [facility] - 05/15/2020 11:34 PM EDT GFR Normal >60 Chronic Kidney Disease <60 Kidney Failure <15 us Jaquan Arenas DO LAB BLOOD ORDERABLES Final Resu lt [facility]
[address] [place] [address], * XR Chest 1 View (05/15/2020 10:29 [...] by Surendra Pike MD. Jaquan Arenas DO IMG DIAGNOSTIC IMAGING ORDERABL [...] 2201 documented in this encounter Care Teams Monumental Stonemason Relationship Specialty Start Date End Date Jaquan Conley MD [address] [place] [address] PCP - General Internal Medicine 04/23/20 02/14/23 documented as of this encounter
--- OUTSIDE RECORDS SUMMARY | 2024-06-11 08:34 | XMS_ITS | Encounter Summary ---
[facility] Address [address] [place] [address] Care Team Providers Care Burr Picker Name Role Phone Jaquan Conley MD Primary Care Provider [phone] Reason for Visit * Reason Comments Leg Injury Encounter Details Date Type Department Care Team (Late st Contact Info) Description 10/28/2020 7:40 PM EDT - 10/28/2020 8:47 PM EDT Emergency [facility] EMERGENCY [facility] [address] [place] [phone] Krissy Bowman MD Contusion of left [...] be sent through Care Everywhere. * Contusion Peel-mt-Mdac (Spanish) documented in this encounter Medications at [...] 240 tablet 1 06/14/2018 Vitamin D, Ergocalciferol, 43711 units capsule 50,000 Int'l Units. 06/03/2020 acetaminophen [...] SLEEVE LAPAROSCOPIC ??? INDUCED 2006 [facility] History reviewed. No pertinent family history. Social [...] Condition Comment Discharge Stable Jaquan Conley MD [address] [place], [place] [phone] Schedule an appointment as soon as possible for a visit Medication List No changes were made to your prescriptions during this visit. Pearl Wakefield APRN 10/28/202042 Cosigned by Krissy Bowman MD at 10/28/2020 11:01 PM EDT Associated attestation - Krissy Bowman MD - 10/28/2020 11:01 PM EDT For this patient encounter, I reviewed the CUSTOM FEED MILL OPERATOR HELPER or PA documentation, treatment plan, and medical [...] PM by Brittny Lacey M.D.. Pearl Wakefield ASSOCIATE DIRECTOR CAREER SERVICES IMG DIAGNOSTIC IMAGING OR DERABLES Final Result documented in this encounter Visit Diagnoses Diagnosis Contusion of left ankle, initial encounter- Primary documented in this encounter Care Teams Burr Picker Relationship Specialty Start Date End Date Jaquan Conley MD [address] [place] [address] PCP - General Internal Medicine 04/23/20 02/14/23 documented as of this encounter
--- OUTSIDE RECORDS SUMMARY | 2024-06-11 08:34 | XMS_ITS | Encounter Summary ---
[facility] Address [address] [place] [address] Care Team Providers Care Hurricane Tracker Name Role Phone Jaquan Conley MD Primary Care Provider [phone] [phone] Encounter Details Date Type Department Care Team (Late st Contact Info) Description 04/23/2020 10:25 AM EDT Lab [facility] [address] [place] [address] Chronic kidney disease, stage V [...] Seen, 0-2 /HPF 04/23/2020 6:42 PM EDT [facility] WBC, UA 0-2 None Seen, 0-2 /HPF 04/23/2020 6:42 PM EDT [facility] Bacteria, UA 2+(A) None Seen /HPF 04/23/2020 6:42 PM EDT [facility] Squamous Epithelial Cells, UA 3-6(A) None Seen, 0-2 /HPF 04/23/2020 6:42 PM EDT [facility] Hyaline Casts, UA 0-2 None Seen /LPF 04/23/2020 6:42 PM EDT [facility] Methodology Automated Microscopy 04/23/2020 6:42 PM EDT [facility] Urine Urine specimen collection, clean catch / Unknown Collection / Unknown 04/23/2020 10:33 AM EDT 04/23/2020 11:13 AM EDT us Mukul Stevens MD URINE ORDERABLES Final Result [facility]
[address] [place] [address], * (ABNORMAL) Urinalysis without microscopic (no culture) - Urine, Clean Catch (04/23/2020 10:33 AM EDT) Color, UA Yellow Yellow, Straw 04/23/2020 6:36 PM EDT [facility] Appearance, UA Clear Clear 04/23/2020 6:36 PM EDT [facility] pH, UA 5.5 5.0 - 8.0 04/23/2020 6:36 PM EDT [facility] Specific [place], UA 1.012 1.005 - 1.030 04/23/2020 6:36 PM EDT [facility] Glucose, UA Negative Negative 04/23/2020 6:36 PM EDT [facility] Ketones, UA Negative Negative 04/23/2020 6:36 PM EDT [facility] Bilirubin, UA Negative Negative 04/23/2020 6:36 PM EDT [facility] Blood, UA Negative Negative 04/23/2020 6:36 PM EDT [facility] Protein, UA >=300 mg/dL (3+)(A) Negative 04/23/2020 6:36 PM EDT [facility] Leuk Esterase, UA Negative Negative 04/23/2020 6:36 PM EDT [facility] Nitrite, UA Negative Negative 04/23/2020 6:36 PM EDT [facility] Urobilinogen, UA 0.2 E.U./dL 0.2 - 1.0 E.U./dL 04/23/2020 6:36 PM EDT [facility] Urine Urine specimen collection, clean catch / Unknown Collection / Unknown 04/23/2020 10:33 AM EDT 04/23/2020 11:13 AM EDT us Mukul Stevens MD URINE ORDERABLES Final Result [facility]
[address] [place] [address], * (ABNORMAL) Vitamin D 25 Hydroxy (04/23/2020 10:33 AM EDT) 25 Hydroxy, Vitamin D 29.5(L) 30.0 - 100.0 ng/ml 04/23/2020 7:00 PM EDT [facility] Blood Venipuncture / Unknown 04/23/2020 10:33 AM EDT 04/23/2020 10:50 AM EDT Narrative [facility] - 04/23/2020 7:00 PM EDT Reference Range for Total Vitamin D 25(OH) Deficiency <20.0 ng/mL Insufficiency 21-29 ng/mL Sufficiency 30-100 ng/mL Toxicity >100 ng/ml Results may be falsely increased if patient taking Biotin. Mukul Stevens MD LAB BLOOD ORDERABLES F inal Result [facility]
[address] [place] [address], * (ABNORMAL) Renal Function Panel (04/23/2020 10:33 AM EDT) [facility] Glucose 79 65 - 99 mg/dL 04/23/2020 7:08 PM EDT [facility] BUN 32(H) 6 - 20 mg/dL 04/23/2020 7:08 PM EDT [facility] Creatinine 3.92(H) 0.57 - 1.00 mg/dL 04/23/2020 7:08 PM EDT [facility] Sodium 142 136 - 145 mmol/L 04/23/2020 7:08 PM EDT [facility] Potassium 4.9 3.5 - 5.2 mmol/L 04/23/2020 7:08 PM EDT [facility] Chloride 111(H) 98 - 107 mmol/L 04/23/2020 7:08 PM EDT [facility] CO2 20.8(L) 22.0 - 29.0 mmol/L 04/23/2020 7:08 PM EDT [facility] Calcium 9.0 8.6 - 10.5 mg/dL 04/23/2020 7:08 PM EDT [facility] Albumin 4.10 3.50 - 5.20 g/dL 04/23/2020 7:08 PM EDT [facility] Phosphorus 3.9 2.5 - 4.5 mg/dL 04/23/2020 7:08 PM EDT [facility] Anion Gap 10.2 5.0 - 15.0 mmol/L 04/23/2020 7:08 PM EDT [facility] BUN/Creatinine Ratio 8.2 7.0 - 25.0 04/23/2020 7:08 PM EDT [facility] eGFR Non Amer 13(L) >60 mL/min/1.7 3 04/23/2020 7:08 PM EDT [facility] Comment:<15 Indicative of ki dney failure. eGFR Amer 04/23/2020 7:08 PM EDT [facility] Comment:<15 Indicative of ki dney failure. Blood Venipuncture / Unknown 04/23/2020 10:33 AM EDT 04/23/2020 10:50 AM EDT Narrative [facility] - 04/23/2020 7:08 PM EDT GFR Normal >60 Chronic Kidney Disease <60 Kidney Failure <15 Mukul Stevens MD LAB BLOOD ORDERABLES F inal Result [facility]
[address] [place] [address], * Protein, Urine, Random - Urine, Clean Catch (04/23/2020 10:33 AM EDT) Total Protein, Urine 138.0 mg/dL 04/23/2020 7:38 PM EDT [facility] Urine Urine specimen collection, clean catch / Unknown Collection / Unknown 04/23/2020 10:33 AM EDT 04/23/2020 11:13 AM EDT [facility] - 04/23/2020 7:38 PM EDT Reference intervals for random urine have not been established. Clinical usage is dependent upon physician's interpretation in combination with other laboratory tests. us Mukul Stevens MD URINE ORDERABLES Final Result Performing Organization Address [facility] de Phone Number [facility]
[address] [place] [address], * (ABNORMAL) PTH, Intact (04/23/2020 10:33 AM EDT) PTH, Intact 314.0(H) 15.0 - 65.0 pg/mL 04/23/2020 6:59 PM EDT [facility] Blood Venipuncture / Unknown 04/23/2020 10:33 AM EDT 04/23/2020 10:50 AM EDT [facility] - 04/23/2020 6:59 PM EDT Results may be falsely decreased if patient taking Biotin. us Mukul Stevens MD LAB BLOOD ORDERABLES F inal Result Performing Organization Address [facility] Phone Number [facility]
[address] [place] [address], * Creatinine, Urine, Random - Urine, Clean Catch (04/23/2020 10:33 AM EDT) Creatinine, Urine 80.8 mg/dL 04/23/2020 7:38 PM EDT [facility] Urine Urine specimen collection, clean catch / Unknown Collection / Unknown 04/23/2020 10:33 AM EDT 04/23/2020 11:13 AM EDT [facility] - 04/23/2020 7:38 PM EDT Reference intervals for random urine have not been established. Clinical usage is dependent upon physician's interpretation in combination with other laboratory tests. us Mukul Stevens MD URINE ORDERABLES Final Result [facility]
[address] [place] [address], documented in this encounter Visit Diagnoses Diagnosis Chronic kidney disease, stage V Chronic kidney disease, Stage V documented in this encounter Care Teams Hurricane Tracker Relationship Specialty Start Date End Date Jaquan Conley MD [address] [place] [address] PCP - General Internal Medicine 04/23/20 02/14/23 documented as of this encounter
--- OUTSIDE RECORDS SUMMARY | 2024-06-11 08:34 | XMS_ITS | Encounter Summary ---
Author Organization [facility] Address [address] [place] [address] Care Team Providers Care Technology Auditor Name Role Phone Jaquan Conley MD Primary Care Provider [phone] Encounter Details Date Type Department Care Team (Late st Contact Info) Description 09/16/2020 12:40 PM EST Lab [facility] [address] [place] [address] Chronic kidney disease, stage V; [...] None Seen, 0-2 /HPF 09/16/2020 11:12 PM [facility] WBC, UA 6-12(A) None Seen, 0-2 /HPF 09/16/2020 11:12 PM [facility] Bacteria, UA 4+(A) None Seen /HPF 09/16/2020 11:12 PM EST [facility] Squamous Epithelial Cells, UA 13-20(A) None Seen, 0-2 /HPF 09/16/2020 11:12 PM [facility] Hyaline Casts, UA 3-6 None Seen /LPF 09/16/2020 11:12 PM [facility] Methodology Automated Microscopy 09/16/2020 11:12 PM [facility] Urine Urine specimen collection, clean catch / Unknown Collection / Unknown 09/16/2020 1:10 PM EST 09/16/2020 4:26 PM EST Adina Sands MD URINE ORDERABLES Final Re sult [facility]
[address] [place] [address], * (ABNORMAL) Urinalysis without microscopic (no culture) - Urine, Clean Catch (09/16/2020 1:10 PM EST) Color, UA Other(A) Yellow, Straw 09/16/2020 11:20 PM [facility] Appearance, UA Cloudy(A) Clear 09/16/2020 11:20 PM [facility] pH, UA 6.0 5.0 - 8.0 09/16/2020 11:20 PM [facility] Specific [place], UA 1.013 1.005 - 1.030 09/16/2020 11:20 PM [facility] Glucose, UA Negative Negative 09/16/2020 11:20 PM [facility] Ketones, UA Negative Negative 09/16/2020 11:20 PM [facility] Bilirubin, UA Negative Negative 09/16/2020 11:20 PM [facility] Blood, UA Large (3+)(A) Negative 09/16/2020 11:20 PM [facility] Protein, UA >=300 mg/dL (3+)(A) Negative 09/16/2020 11:20 PM [facility] Leuk Esterase, UA Negative Negative 09/16/2020 11:20 PM [facility] Nitrite, UA Negative Negative 09/16/2020 11:20 PM [facility] Urobilinogen, UA 0.2 E.U./dL 0.2 - 1.0 E.U./dL 09/16/2020 11:20 PM [facility] Urine Urine specimen collection, clean catch / Unknown Collection / Unknown 09/16/2020 1:10 PM EST 09/16/2020 4:26 PM EST Adina Sands MD URINE ORDERABLES Final Re sult [facility]
[address] [place] [address], * (ABNORMAL) CBC Auto Differential (09/16/2020 1:10 PM EST) WBC 8.49 3.40 - 10.80 10*3/mm3 09/16/2020 6:15 PM [facility] RBC 4.28 3.77 - 5.28 10*6/mm3 09/16/2020 6:15 PM [facility] Hemoglobin 13.5 12.0 - 15.9 g/dL 09/16/2020 6:15 PM [facility] Hematocrit 40.3 34.0 - 46.6 % 09/16/2020 6:15 PM [facility] MCV 94.2 79.0 - 97.0 fL 09/16/2020 6:15 PM [facility] MCH 31.5 26.6 - 33.0 pg 09/16/2020 6:15 PM [facility] MCHC 33.5 31.5 - 35.7 g/dL 09/16/2020 6:15 PM [facility] RDW 12.0(L) 12.3 - 15.4 % 09/16/2020 6:15 PM [facility] RDW-SD 41.5 37.0 - 54.0 fl 09/16/2020 6:15 PM [facility] MPV 13.9(H) 6.0 - 12.0 fL 09/16/2020 6:15 PM [facility] Platelets 214 140 - 450 10*3/mm3 09/16/2020 6:15 PM [facility] Neutrophil % 62.6 42.7 - 76.0 % 09/16/2020 6:15 PM EST [facility] Lymphocyte % 28.4 19.6 - 45.3 % 09/16/2020 6:15 PM EST [facility] Monocyte % 4.8(L) 5.0 - 12.0 % 09/16/2020 6:15 PM EST [facility] Eosinophil % 3.3 0.3 - 6.2 % 09/16/2020 6:15 PM EST [facility] Basophil % 0.5 0.0 - 1.5 % 09/16/2020 6:15 PM EST [facility] Neutrophils, Absolute 5.32 1.70 - 7.00 10*3/mm3 09/16/2020 6:15 PM [facility] Lymphocytes, Absolute 2.41 0.70 - 3.10 10*3/mm3 09/16/2020 6:15 PM [facility] Monocytes, Absolute 0.41 0.10 - 0.90 10*3/mm3 09/16/2020 6:15 PM [facility] Eosinophils, Absolute 0.28 0.00 - 0.40 10*3/mm3 09/16/2020 6:15 PM [facility] Basophils, Absolute 0.04 0.00 - 0.20 10*3/mm3 09/16/2020 6:15 PM [facility] Blood Venipuncture / Unknown 09/16/2020 1:10 PM EST 09/16/2020 1:54 PM EST Adina Sands MD LAB BLOOD ORDERABLES Amy foreman Result [facility]
[address] [place] [address], * Vitamin D 25 Hydroxy (09/16/2020 1:10 PM EST) 25 Hydroxy, Vitamin D 22.9 ng/ml 09/16/2020 7:33 PM EST [facility] Blood Venipuncture / Unknown 09/16/2020 1:10 PM EST 09/16/2020 1:54 PM EST [facility] - 09/16/2020 7:33 PM EST Reference Range for Total Vitamin D 25(OH) Deficiency <20.0 ng/mL Insufficiency 21-29 ng/mL Sufficiency 30-100 ng/mL Toxicity >100 ng/ml Results may be falsely increased if patient taking Biotin. Adina Sands MD LAB BLOOD ORDERABLES Amy foreman Result [facility]
[address] [place] [address], * (ABNORMAL) Renal Function Panel (09/16/2020 1:10 PM EST) Glucose 107(H) 65 - 99 mg/dL 09/16/2020 6:39 PM [facility] BUN 34(H) 6 - 20 mg/dL 09/16/2020 6:39 PM [facility] Creatinine 3.08(H) 0.57 - 1.00 mg/dL 09/16/2020 6:39 PM [facility] Sodium 139 136 - 145 mmol/L 09/16/2020 6:39 PM [facility] Potassium 4.1 3.5 - 5.2 mmol/L 09/16/2020 6:39 PM [facility] Chloride 108(H) 98 - 107 mmol/L 09/16/2020 6:39 PM [facility] CO2 19.0(L) 22.0 - 29.0 mmol/L 09/16/2020 6:39 PM [facility] Calcium 8.7 8.6 - 10.5 mg/dL 09/16/2020 6:39 PM [facility] Albumin 4.00 3.50 - 5.20 g/dL 09/16/2020 6:39 PM [facility] Phosphorus 4.0 2.5 - 4.5 mg/dL 09/16/2020 6:39 PM EST [facility] Anion Gap 12.0 5.0 - 15.0 mmol/L 09/16/2020 6:39 PM EST [facility] BUN/Creatinine Ratio 11.0 7.0 - 25.0 09/16/2020 6:39 PM EST [facility] eGFR Non Amer 18(L) >60 mL/min/1.7 3 09/16/2020 6:39 PM EST [facility] Blood Venipuncture / Unknown 09/16/2020 1:10 PM EST 09/16/2020 1:53 PM EST [facility] - 09/16/2020 6:39 PM EST GFR Normal >60 Chronic Kidney Disease <60 Kidney Failure <15 Adina Sands MD LAB BLOOD ORDERABLES Amy l Result [facility]
[address] [place] [address], [place] [phone] * Protein, Urine, Random - Urine, Clean Catch (09/16/2020 1:10 PM EST) Total Protein, Urine 225.0 mg/dL 09/16/2020 11:47 PM EST [facility] Urine Urine specimen collection, clean catch / Unknown Collection / Unknown 09/16/2020 1:10 PM EST 09/16/2020 4:26 PM EST [facility] - 09/16/2020 11:47 PM EST Reference intervals for random urine have not been established. Clinical usage is dependent upon physician's interpretation in combination with other laboratory tests. us Adina Sands MD URINE ORDERABLES Final Re sult Performing Organization Address [facility]/ZIP Co de Phone Number [facility]
[address] [place] [address], [place] [phone] * (ABNORMAL) PTH, Intact (09/16/2020 1:10 PM EST) PTH, Intact 255.0(H) 15.0 - 65.0 pg/mL 09/16/2020 7:07 PM EST [facility] Blood Venipuncture / Unknown 09/16/2020 1:10 PM EST 09/16/2020 1:55 PM EST [facility] - 09/16/2020 7:07 PM EST Results may be falsely decreased if patient taking Biotin. us Adina Sands MD LAB BLOOD ORDERABLES Amy l Result Performing Organization Address City/[facility]/ZIP Co de Phone Number [facility]
[address] [place] [address], * Creatinine, Urine, Random - Urine, Clean Catch (09/16/2020 1:10 PM EST) Creatinine, Urine 75.8 mg/dL 09/16/2020 11:34 PM EST [facility] Urine Urine specimen collection, clean catch / Unknown Collection / Unknown 09/16/2020 1:10 PM EST 09/16/2020 4:26 PM EST [facility] - 09/16/2020 11:34 PM EST Reference intervals for random urine have not been established. Clinical usage is dependent upon physician's interpretation in combination with other laboratory tests. us Adina Sands MD URINE ORDERABLES Final Re sult [facility]
[address] [place] [address], documented in this encounter Visit Diagnoses Diagnosis Chronic kidney disease, stage V Chronic kidney disease, Stage V Vitamin D deficiency documented in this encounter Care Teams Technology Auditor Relationship Specialty Start Date End Date Jaquan Conley MD [address] [place] [address] PCP - General Internal Medicine 04/23/20 02/14/23 documented as of this encounter
--- OUTSIDE RECORDS SUMMARY | 2024-06-11 08:34 | XMS_ITS | Encounter Summary ---
[facility] Address [address] [place] [address] Care Team Providers Care Billboard Erector Helper Name Role Phone Jaquan Conley MD Primary Care Provider + [phone] Reason for Referral * (Routine) - Closed Specialty Diagnoses / Procedures Referred By Contac t Referred To Contact Radiology Diagnoses Tobacco use disorder Procedures XR Chest PA & Lateral Adina Sands MD [address] [place] [address] Phone: tel: fax: Referral ID Status Reason Start Date Expiration Date Visits Re quested Visits Authorized [id number] Closed 02/09/2021 02/09/2022 1 1 Reason for Visit * (Routine) - Closed Specialty Diagnoses / Procedures Referred By Contac t Referred To Contact Radiology Diagnoses Tobacco use disorder Procedures XR Chest PA & Lateral Adina Sands MD [address] [place] [address] Phone: tel: fax: Referral ID Status Reason Start Date Expiration Date Visits Re quested Visits Authorized [id number] Closed 02/09/2021 02/09/2022 1 1 Encounter Details Date Type Department Care Team (Late st Contact Info) Description 02/09/2021 2:41 PM EDT - 02/09/2021 11:59 PM EDT Hospital Encounter [facility] [address] [place] [address] Adina Sands MD [address] [place] [address] Tobacco use disorder Discharge Disposition: [...] 240 tablet 1 06/14/2018 Vitamin D, Ergocalciferol, 14107 units capsule 50,000 Int'l Units. 06/03/2020 acetaminophen [...] by Elvis Martinez MD. Adina Sands MD [facility] DER[facility] Final Result documented in this encounter Visit Diagnoses Diagnosis Tobacco use disorder documented in this encounter Care Teams Billboard Erector Helper Relationship Specialty Start Date End Date Jaquan Conley MD [address] [place] [address] PCP - General Internal Medicine 04/23/20 02/14/23 documented as of this encounter
--- OUTSIDE RECORDS SUMMARY | 2024-06-11 08:34 | XMS_ITS | Encounter Summary ---
Author Organization [facility] Address [address] [place] [id number] Care Team Providers Care Rivet Driver Name Role Phone Jaquan Conley MD Primary Care Provider [phone] Reason for Visit * Reason Comments Hand Injury Encounter Details Date Type Department Care Team (Late st Contact Info) Description 05/31/2020 7:40 PM EST - 05/31/2020 9:23 PM EST Emergency [facility] [address] [place] [id number] Jaquan Arenas, DO Contusion of right [...] sent through Care Everywhere. * Hand Contusion (Macedonian) documented in this encounter Medications at Time [...] ??? 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 INDUCED 2006 [facility] History reviewed. No pertinent family [...] CARDIOVASCULAR: Good Peripheral pulses. Good capillary refill. Kamrar and warm extremities. MUSCULOSKELETAL: No compartment syndrome. [...] Laterality Modality Upper Extremities, Hand Right [facility] 06/01/2020 6:43 AM EST Impressions 06/01/2020 [...] encounter documented in this encounter Care Teams Rivet Driver Relationship Specialty Start Date End Date Jaquan Conley MD [address] [place], [place] [id number] PCP - General Internal Medicine 04/23/20 02/14/23 documented as of this encounter
--- OUTSIDE RECORDS SUMMARY | 2024-06-11 08:35 | XMS_ITS | Encounter Summary ---
[facility] Address [address] [place] [address] Care Team Providers Care Hoop Riveting Machine Operator Name Role Phone Unavailable Primary Care Provider Unavailabl e Encounter Details Date Type Department Care Team (Late st Contact Info) Description 09/21/2019 8:45 AM EST Lab [facility] [address] [place] [address] Anemia, unspecified type Social History [...] 3.40 - 10.80 10*3/mm3 09/21/2019 7:02 PM [facility] RBC 3.22(L) 3.77 - 5.28 10*6/mm3 09/21/2019 7:02 PM [facility] Hemoglobin 10.1(L) 12.0 - 15.9 g/dL 09/21/2019 7:02 PM [facility] Hematocrit 30.0(L) 34.0 - 46.6 % 09/21/2019 7:02 PM [facility] MCV 93.2 79.0 - 97.0 fL 09/21/2019 7:02 PM [facility] MCH 31.4 26.6 - 33.0 pg 09/21/2019 7:02 PM [facility] MCHC 33.7 31.5 - 35.7 g/dL 09/21/2019 7:02 PM [facility] RDW 13.5 12.3 - 15.4 % 09/21/2019 7:02 PM [facility] RDW-SD 46.1 37.0 - 54.0 fl 09/21/2019 7:02 PM [facility] MPV 13.5(H) 6.0 - 12.0 fL 09/21/2019 7:02 PM [facility] Platelets 215 140 - 450 10*3/mm3 09/21/2019 7:02 PM [facility] Neutrophil % 69.3 42.7 - 76.0 % 09/21/2019 7:02 PM [facility] Lymphocyte % 21.6 19.6 - 45.3 % 09/21/2019 7:02 PM [facility] Monocyte % 5.3 5.0 - 12.0 % 09/21/2019 7:02 PM [facility] Eosinophil % 2.8 0.3 - 6.2 % 09/21/2019 7:02 PM [facility] Basophil % 0.4 0.0 - 1.5 % 09/21/2019 7:02 PM [facility] Immature Grans % 0.6(H) 0.0 - 0.5 % 09/21/2019 7:02 PM [facility] Neutrophils, Absolute 7.47(H) 1.70 - 7.00 10*3/mm3 09/21/2019 7:02 PM [facility] Lymphocytes, Absolute 2.32 0.70 - 3.10 10*3/mm3 09/21/2019 7:02 PM [facility] Monocytes, Absolute 0.57 0.10 - 0.90 10*3/mm3 09/21/2019 7:02 PM [facility] Eosinophils, Absolute 0.30 0.00 - 0.40 10*3/mm3 09/21/2019 7:02 PM [facility] Basophils, Absolute 0.04 0.00 - 0.20 10*3/mm3 09/21/2019 7:02 PM [facility] Immature Grans, Absolute 0.06(H) 0.00 - 0.05 10*3/mm3 09/21/2019 7:02 PM [facility] nRBC 0.1 0.0 - 0.2 /100 WBC 09/21/2019 7:02 PM [facility] Blood Venipuncture / Unknown 09/21/2019 8:47 AM EST 09/21/2019 9:29 AM EST Ibrahima Talamantes MD LAB BLOOD ORDERABLES F inal Result [facility]
[address] [place] [address], * (ABNORMAL) Renal Function Panel (09/21/2019 8:47 AM EST) Glucose 292(H) 65 - 99 mg/dL 09/21/2019 7:21 PM [facility] BUN 45(H) 6 - 20 mg/dL 09/21/2019 7:21 PM [facility] Creatinine 3.86(H) 0.57 - 1.00 mg/dL 09/21/2019 7:21 PM [facility] Sodium 140 136 - 145 mmol/L 09/21/2019 7:21 PM [facility] Potassium 4.9 3.5 - 5.2 mmol/L 09/21/2019 7:21 PM [facility] Chloride 107 98 - 107 mmol/L 09/21/2019 7:21 PM [facility] CO2 18.5(L) 22.0 - 29.0 mmol/L 09/21/2019 7:21 PM [facility] Calcium 8.1(L) 8.6 - 10.5 mg/dL 09/21/2019 7:21 PM [facility] Albumin 3.70 3.50 - 5.20 g/dL 09/21/2019 7:21 PM [facility] Phosphorus 5.2(H) 2.5 - 4.5 mg/dL 09/21/2019 7:21 PM [facility] Anion Gap 14.5 5.0 - 15.0 mmol/L 09/21/2019 7:21 PM [facility] BUN/Creatinine Ratio 11.7 7.0 - 25.0 09/21/2019 7:21 PM [facility] eGFR Non Amer 14(L) >60 mL/min/1.7 3 09/21/2019 7:21 PM [facility] Comment:<15 Indicative of ki dney failure. eGFR Amer 09/21/2019 7:21 PM [facility] Comment:<15 Indicative of ki dney failure. Blood Venipuncture / Unknown 09/21/2019 8:47 AM EST 09/21/2019 9:29 AM EST [facility] - 09/21/2019 7:21 PM EST GFR Normal >60 Chronic Kidney Disease <60 Kidney Failure <15 Ibrahima Talamantes MD LAB BLOOD ORDERABLES F inal Result Performing Organization Address [facility] Co de Phone Number [facility]
[address] [place] [address], * (ABNORMAL) Ferritin (09/21/2019 8:47 AM EST) Ferritin 564.00(H) 13.00 - 150.00 ng/mL 09/21/2019 7:28 PM EST [facility] Blood Venipuncture / Unknown 09/21/2019 8:47 AM EST 09/21/2019 9:29 AM EST Narrative [facility] - 09/21/2019 7:28 PM EST Results may be falsely decreased if patient taking Biotin. Ibrahima Talamantes MD LAB BLOOD ORDERABLES F inal Result Performing Organization Address [facility] Co de Phone Number [facility]
[address] [place] [address], * Iron Profile (09/21/2019 8:47 AM EST) Iron 76 37 - 145 mcg/dL 09/21/2019 7:21 PM EST [facility] Iron Saturation (TSAT) 25 20 - 50 % 09/21/2019 7:21 PM EST [facility] Transferrin 201 200 - 360 mg/dL 09/21/2019 7:21 PM EST [facility] TIBC 299 298 - 536 mcg/dL 09/21/2019 7:21 PM EST [facility] Blood Venipuncture / Unknown 09/21/2019 8:47 AM EST 09/21/2019 9:29 AM EST Ibrahima Talamantes MD LAB BLOOD ORDERABLES F inal Result Performing Organization Address City/[facility] Co de Phone Number [facility]
[address] [place], [place] [address] [phone] documented in this encounter Visit Diagnoses Diagnosis Anemia, unspecified type documented in this encounter
--- OUTSIDE RECORDS SUMMARY | 2024-06-11 08:35 | XMS_ITS | Encounter Summary ---
Author Organization [facility] ystem Address [address] [place] [address] Care Team Providers Care Promotional Advertising Assistant Name Role Phone Unavailable Primary Care Provider Unavailabl e Reason for Visit * Reason Comments Flu Symptoms Encounter Details Date Type Department Care Team (Late st Contact Info) Description 05/03/2019 3:44 PM EDT - 05/03/2019 5:01 PM EDT Emergency [facility] [address] [place] [phone] Christopher Aggarwal MD Acute bronchitis, unspecified [...] through Care Everywhere. * Acute Bronchitis Adult [id number] (Vietnamese) documented in this encounter Medications at Time [...] 1 capsule by mouth Daily. 02/16/20 23 carvedilol (COREG) 6.25 MG tablet [...] ED Course as of May 03 1656 [facility] May 03, 2019 1649 Patient sitting up [...] For this patient encounter, I reviewed the HIDE SORTER or PA documentation, treatment plan, and medical [...] None Seen /HPF 05/03/2019 4:31 PM EDT [facility] WBC, UA 0-2(A) None Seen /HPF 05/03/2019 4:31 PM EDT [facility] Bacteria, UA 1+(A) None Seen /HPF 05/03/2019 4:31 PM EDT [facility] Squamous Epithelial Cells, UA 0-2 None Seen, 0-2 /HPF 05/03/2019 4:31 PM EDT [facility] Hyaline Casts, UA None Seen None Seen /LPF 05/03/2019 4:31 PM EDT [facility] Methodology Manual Light Microscopy 05/03/2019 4:31 PM EDT [facility] Urine Urine specimen collection, clean catch / Unknown Collection / Unknown 05/03/2019 4:05 PM EDT 05/03/2019 4:07 PM EDT Bc Dumont PA-C URINE ORDERABLES Final Result [facility]
[address] [place] [address], * (ABNORMAL) Urinalysis With Culture If Indicated - Urine, Clean Catch (05/03/2019 4:05 PM EDT) Color, UA Yellow Yellow, Straw 05/03/2019 4:13 PM EDT [facility] Appearance, UA Clear Clear 05/03/2019 4:13 PM EDT [facility] pH, UA 7.0 5.0 - 8.0 05/03/2019 4:13 PM EDT [facility] Specific [place], UA 1.010 1.005 - 1.030 05/03/2019 4:13 PM EDT [facility] Glucose, UA Negative Negative 05/03/2019 4:13 PM EDT [facility] Ketones, UA Negative Negative 05/03/2019 4:13 PM EDT [facility] Bilirubin, UA Negative Negative 05/03/2019 4:13 PM EDT [facility] Blood, UA Negative Negative 05/03/2019 4:13 PM EDT [facility] Protein, UA >=300 mg/dL (3+)(A) Negative 05/03/2019 4:13 PM EDT [facility] Leuk Esterase, UA Negative Negative 05/03/2019 4:13 PM EDT [facility] Nitrite, UA Negative Negative 05/03/2019 4:13 PM EDT [facility] Urobilinogen, UA 0.2 E.U./dL 0.2 - 1.0 E.U./dL 05/03/2019 4:13 PM EDT [facility] Urine Urine specimen collection, clean catch / Unknown Collection / Unknown 05/03/2019 4:05 PM EDT 05/03/2019 4:07 PM EDT Bc Dumont PA-C URINE ORDERABLES Final Result Performing Organization Address City/[facility]/ZIP Co de Phone Number [facility]
[address] [place] [address], [place] [phone] * , Urine - Urine, Clean Catch (05/03/2019 4:05 PM EDT) HCG, Urine QL Negative Negative 05/03/2019 4:14 PM EDT [facility] Urine Urine specimen collection, clean catch / Unknown Collection / Unknown 05/03/2019 4:05 PM EDT 05/03/2019 4:07 PM EDT Bc MENDEZ-Todd URINE ORDERABLES Final Result Performing Organization Address [facility] de Phone Number [facility]
[address] [place] [address], [place] [phone] * Beta Strep Culture, Throat - Swab, Throat (05/03/2019 3:51 PM EDT) Throat Culture, Beta Strep No Beta Hemolytic Streptococcus Isolated KIRA 05/05/2019 8:17 AM EDT [facility] Swab Specimen from throat / Unknown Collection / Unknown 05/03/2019 3:51 PM EDT 05/03/2019 3:54 PM EDT Narrative [facility] - 05/05/2019 8:17 AM EDT Group A Strep incidence is low in adults. Positive culture for Beta hemolytic Streptococcus species can reflect colonization and not true infection. Please correlate clinically. Christopher Aggarwal MD MICROBIOLOGY - GENERAL O RDERABLES Final Result Performing Organization Address City/[facility]/ZIP Co de Phone Number [facility]
[address] [place] [address], [place] [phone] * Influenza Antigen, Rapid - Swab, Nasopharynx (05/03/2019 3:51 PM EDT) Influenza A Ag, EIA Negative Negative 05/03/2019 4:07 PM EDT [facility] Influenza B Ag, EIA Negative Negative 05/03/2019 4:07 PM EDT [facility] Swab Nasopharyngeal structure / Unknown Collection / Unknown 05/03/2019 3:51 PM EDT 05/03/2019 3:53 PM EDT Christopher Aggarwal MD MICROBIOLOGY - GENERAL O RDERABLES Final Result [facility]
[address] [place] [address], [place] [phone] * Rapid Strep A Screen - Swab, Throat (05/03/2019 3:51 PM EDT) Strep A Ag Negative Negative 05/03/2019 4:05 PM EDT [facility] Swab Specimen from throat / Unknown Collection / Unknown 05/03/2019 3:51 PM EDT 05/03/2019 3:54 PM EDT Christopher Aggarwal MD MICROBIOLOGY - GENERAL O RDERABLES Final Result [facility]
[address] [place] [address], [place] [phone] documented in this encounter Visit Diagnoses Diagnosis Acute bronchitis, unspecified organism- Primary documented in this encounter
--- OUTSIDE RECORDS SUMMARY | 2024-06-11 08:35 | XMS_ITS | Encounter Summary ---
Author Organization [facility] Address [address] [place] [address] Care Team Providers Care Envelope Addresser Name Role Phone Unavailable Primary Care Provider Unavailabl e Encounter Details Date Type Department Care Team (Late st Contact Info) Description 02/21/2020 3:10 PM EDT Lab [facility] [address] [place] [address] CKD stage G5/A3, GFR <15 [...] Seen, 0-2 /HPF 02/21/2020 10:57 PM EDT [facility] WBC, UA 31-50(A) None Seen, 0-2 /HPF 02/21/2020 10:57 PM EDT [facility] Bacteria, UA 2+(A) None Seen /HPF 02/21/2020 10:57 PM EDT [facility] Squamous Epithelial Cells, UA 0-2 None Seen, 0-2 /HPF 02/21/2020 10:57 PM EDT [facility] Hyaline Casts, UA 3-6 None Seen /LPF 02/21/2020 10:57 PM EDT [facility] Methodology Automated Microscopy 02/21/2020 10:57 PM EDT [facility] Urine Urine specimen collection, clean catch / Unknown Collection / Unknown 02/21/2020 3:36 PM EDT 02/21/2020 4:27 PM EDT us Mukul Stevens MD URINE ORDERABLES Final Result [facility]
[address] [place] [address], [place] [phone] * (ABNORMAL) Urinalysis without microscopic (no culture) - Urine, Clean Catch (02/21/2020 3:36 PM EDT) Color, UA Yellow Yellow, Straw 02/21/2020 10:51 PM EDT [facility] Appearance, UA Cloudy(A) Clear 02/21/2020 10:51 PM EDT [facility] pH, UA 6.0 5.0 - 8.0 02/21/2020 10:51 PM EDT [facility] Specific [place], UA 1.013 1.005 - 1.030 02/21/2020 10:51 PM EDT [facility] Glucose, UA Negative Negative 02/21/2020 10:51 PM EDT [facility] Ketones, UA Negative Negative 02/21/2020 10:51 PM EDT [facility] Bilirubin, UA Negative Negative 02/21/2020 10:51 PM EDT [facility] Blood, UA Negative Negative 02/21/2020 10:51 PM EDT [facility] Protein, UA >=300 mg/dL (3+)(A) Negative 02/21/2020 10:51 PM EDT [facility] Leuk Esterase, UA Trace(A) Negative 02/21/2020 10:51 PM EDT [facility] Nitrite, UA Negative Negative 02/21/2020 10:51 PM EDT [facility] Urobilinogen, UA 0.2 E.U./dL 0.2 - 1.0 E.U./dL 02/21/2020 10:51 PM EDT [facility] Urine Urine specimen collection, clean catch / Unknown Collection / Unknown 02/21/2020 3:36 PM EDT 02/21/2020 4:27 PM EDT us Mukul Stevens MD URINE ORDERABLES Final Result [facility]
[address] [place] [address], [place] [phone] * (ABNORMAL) CBC Auto Differential (02/21/2020 3:36 PM EDT) [facility] Signature WBC 7.41 3.40 - 10.80 10*3/mm3 02/21/2020 11:40 PM EDT [facility] RBC 4.12 3.77 - 5.28 10*6/mm3 02/21/2020 11:40 PM EDT [facility] Hemoglobin 12.4 12.0 - 15.9 g/dL 02/21/2020 11:40 PM EDT [facility] Hematocrit 36.9 34.0 - 46.6 % 02/21/2020 11:40 PM EDT [facility] MCV 89.6 79.0 - 97.0 fL 02/21/2020 11:40 PM EDT [facility] MCH 30.1 26.6 - 33.0 pg 02/21/2020 11:40 PM EDT [facility] MCHC 33.6 31.5 - 35.7 g/dL 02/21/2020 11:40 PM EDT [facility] RDW 13.5 12.3 - 15.4 % 02/21/2020 11:40 PM EDT [facility] RDW-SD 44.7 37.0 - 54.0 fl 02/21/2020 11:40 PM EDT [facility] MPV 13.8(H) 6.0 - 12.0 fL 02/21/2020 11:40 PM EDT [facility] Platelets 172 140 - 450 10*3/mm3 02/21/2020 11:40 PM EDT [facility] Neutrophil % 51.4 42.7 - 76.0 % 02/21/2020 11:40 PM EDT [facility] Lymphocyte % 38.3 19.6 - 45.3 % 02/21/2020 11:40 PM EDT [facility] Monocyte % 6.9 5.0 - 12.0 % 02/21/2020 11:40 PM EDT [facility] Eosinophil % 2.7 0.3 - 6.2 % 02/21/2020 11:40 PM EDT [facility] Basophil % 0.4 0.0 - 1.5 % 02/21/2020 11:40 PM EDT [facility] Neutrophils, Absolute 3.81 1.70 - 7.00 10*3/mm3 02/21/2020 11:40 PM EDT [facility] Lymphocytes, Absolute 2.84 0.70 - 3.10 10*3/mm3 02/21/2020 11:40 PM EDT [facility] Monocytes, Absolute 0.51 0.10 - 0.90 10*3/mm3 02/21/2020 11:40 PM EDT [facility] Eosinophils, Absolute 0.20 0.00 - 0.40 10*3/mm3 02/21/2020 11:40 PM EDT [facility] Basophils, Absolute 0.03 0.00 - 0.20 10*3/mm3 02/21/2020 11:40 PM EDT [facility] Blood Venipuncture / Unknown 02/21/2020 3:36 PM EDT 02/21/2020 4:36 PM EDT Mukul Stevens MD LAB BLOOD ORDERABLES F inal Result [facility]
[address] [place] [address], * (ABNORMAL) Renal Function Panel (02/21/2020 3:36 PM EDT) Glucose 53(L) 65 - 99 mg/dL 02/21/2020 11:14 PM EDT [facility] BUN 23(H) 6 - 20 mg/dL 02/21/2020 11:14 PM EDT [facility] Creatinine 3.58(H) 0.57 - 1.00 mg/dL 02/21/2020 11:14 PM EDT [facility] Sodium 140 136 - 145 mmol/L 02/21/2020 11:14 PM EDT [facility] Potassium 4.8 3.5 - 5.2 mmol/L 02/21/2020 11:14 PM EDT [facility] Chloride 110(H) 98 - 107 mmol/L 02/21/2020 11:14 PM EDT [facility] CO2 19.9(L) 22.0 - 29.0 mmol/L 02/21/2020 11:14 PM EDT [facility] Calcium 9.6 8.6 - 10.5 mg/dL 02/21/2020 11:14 PM EDT [facility] Albumin 4.00 3.50 - 5.20 g/dL 02/21/2020 11:14 PM EDT [facility] Phosphorus 3.1 2.5 - 4.5 mg/dL 02/21/2020 11:14 PM EDT [facility] Anion Gap 10.1 5.0 - 15.0 mmol/L 02/21/2020 11:14 PM EDT [facility] BUN/Creatinine Ratio 6.4(L) 7.0 - 25.0 02/21/2020 11:14 PM EDT [facility] eGFR Non Amer 15(L) >60 mL/min/1.7 3 02/21/2020 11:14 PM EDT [facility] Blood Venipuncture / Unknown 02/21/2020 3:36 PM EDT 02/21/2020 4:38 PM EDT Narrative [facility] - 02/21/2020 11:14 PM EDT GFR Normal >60 Chronic Kidney Disease <60 Kidney Failure <15 Mukul Stevens MD LAB BLOOD ORDERABLES F inal Result [facility]
[address] [place] [address], documented in this encounter Visit Diagnoses Diagnosis CKD stage G5/A3, GFR <15 and albumin creatinine ratio >300 mg/g documented in this encounter
--- OUTSIDE RECORDS SUMMARY | 2024-06-11 08:35 | XMS_ITS | Encounter Summary ---
Author Organization [facility] ystem Address [address] [place] [id number] Care Team Providers Care Senior Salesforce Developer Name Role Phone Unavailable Primary Care Provider Unavailabl e Reason for Visit * Reason Comments Wound Check Encounter Details Date Type Department Care Team (Late st Contact Info) Description 05/01/2019 9:56 PM EDT - 05/01/2019 10:58 PM EDT Emergency [facility] [address] [place] [address] Phill Gama, DO [address] [place], [place] [id number] Visit for wound check (Primary Dx) Discharge [...] acutely infected. May use topical steroids and [id number] antibiotic ointment on the area for the [...] through Care Everywhere. * Wound Care Adult (Kiswahili) documented in this encounter Medications at Time [...] Times a Day With Meals. 06/07/20 24 cephalexin (KEFLEX) 500 MG capsule Take 1 [...] tablet Takes 20mg daily 0 12/23/2015 24 naproxen (NAPROSYN) 500 MG tablet Take 1 tablet by mouth 2 (Two) Times a Day With Meals. 20 tablet 10/09/2018 05/03/20 19 ondansetron (ZOFRAN) 4 MG tablet Take 1 tablet by mouth Every 8 (Eight) Hours As Needed for Nausea or Vomiting. 20 tablet 12/25/2018 05/03/20 19 ondansetron ODT (ZOFRAN-ODT) 4 MG disintegrating tablet Take 1 tablet by mouth Every 6 (Six) Hours As Needed for Nausea or Vomiting. 20 tablet 03/14/2018 06/07/20 24 phenazopyridine (PYRIDIUM) 200 MG tablet Take 1 [...] Chronic constipation ??? Depression ??? Diabetes mellitus (CMS/[facility]) ??? Excessive thirst ??? H/O mammogram 2014 [...] 10/17/2012 ??? SECTION ??? INDUCED 2006 [facility] History reviewed. No pertinent [...] For this patient encounter, I reviewed the ELECTRIC SOLDERER or PA documentation, treatment plan, and medical decision making. Phill Gama DO 05/02/2019 12:31 AM documented in this encounter Plan of Treatment Not on file documented as of this encounter Visit Diagnoses Diagnosis Visit for wound check- Primary documented in this encounter
--- OUTSIDE RECORDS SUMMARY | 2024-06-11 08:35 | XMS_ITS | Encounter Summary ---
Author Organization [facility] ystem Address [address] [place] [address] Care Team Providers Care Delivery Associate Name Role Phone Unavailable Primary Care Provider Unavailabl e Reason for Visit * Reason Comments Flu Symptoms Encounter Details Date Type Department Care Team (Late st Contact Info) Description 09/14/2019 5:20 PM EST - 09/14/2019 6:24 PM EST Emergency [facility] EM[facility] [address] [place] [phone] Krissy Bowman MD Viral upper respiratory [...] Care Everywhere. * Upper Respiratory Infection Adult [id number] (Colombian) * Cough Adult (Colombian) documented in this encounter Medications at [...] (Two) Times a Day. 28 g 05/01/2019 08/01/20 23 lisinopril (PRINIVIL,ZESTRIL) 10 MG tablet Takes [...] Notes * Maikol Quiroz Jr., JOHN - 09/14/2019 5:52 PM EST Subjective 29-year-old female presents with cough, congestion, aches and pains, the symptoms have been going on for 3 days. History provided by: Patient child welfare consultant used: No URI Presenting symptoms: congestion and [...] For this patient encounter, I reviewed the DISHWASHER BUSSER or PA documentation, treatment plan, and medical [...] EIA Negative Negative 09/14/2019 5:45 PM EST [facility] Influenza B Ag, EIA Negative Negative 09/14/2019 5:45 PM EST [facility] Swab Nasopharyngeal structure / Unknown Collection / Unknown 09/14/2019 5:25 PM EST 09/14/2019 5:28 PM EST us Krissy Bowman MD MICROBIOLOGY - GENERAL ORDERABLES Final Result [facility]
[address] [place] [address], [place] [phone] documented in this encounter Visit Diagnoses Diagnosis Viral upper respiratory tract infection- Primary Acute upper respiratory infections of unspecified site documented in this encounter
--- OUTSIDE RECORDS SUMMARY | 2024-06-11 08:35 | XMS_ITS | Encounter Summary ---
Author Organization [facility] ystem Address [address] [place] [address] Care Team Providers Care Mold Car Pusher Name Role Phone Unavailable Primary Care Provider Unavailabl e Reason for Visit * Reason Comments Oral Swelling Encounter Details Date Type Department Care Team (Late st Contact Info) Description 02/06/2020 6:15 PM EDT - 02/06/2020 7:26 PM EDT Emergency [facility] EMERGENC[facility] DEPARTMENT [address] [place] [phone] Christopher Aggarwal MD Finley, Paul W, Foreign body in skin (Primary Dx) Discharge [...] of this encounter ED Notes * Pearl Wakefield, WINE BOTTLE INSPECTOR - 02/06/2020 7:12 PM EDT Images from [...] ??? 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 INDUCED [address] [facility] History reviewed. No pertinent family history. [...] Pearl Wakefield APRN 02/06/201917 Cosigned by Jaquan Arenas DO at 02/06/2020 10:39 PM EDT Associated attestation - Jaquan Arenas DO - 02/06/2020 10:39 PM EDT For this patient encounter, I reviewed the RIM BUSTER or PA documentation, treatment plan, and medical [...]
--- OUTSIDE RECORDS SUMMARY | 2024-06-11 08:35 | XMS_ITS | Encounter Summary ---
Author Organization [facility] Address [address] [place] [address] Care Team Providers Care Detective Supervisor Name Role Phone Unavailable Primary Care Provider Unavailabl e Reason for Visit * Episode Based Medications (Routine) - Closed Specialty Diagnoses / Procedures Referred By Contac t Referred To Contact Diagnoses Chronic kidney disease, stage IV (severe) Anemia due to chronic kidney disease, unspecified CKD stage Procedures MS INJ FERRIC CARBOXYMALTOS 1MG Kamilla Mccullough, PharmD [address] [place] [address] Phone: tel: Referral ID Status Reason Start Date Expiration Date Visits Re quested Visits Authorized [id number] Closed 07/06/2019 08/05/2019 1 1 Encounter Details Date Type Department Care Team (Latest Contact Info) Description 07/16/2019 8:09 AM [facility] [[email or web address] - 07/16/2019 11:59 PM [facility] Encounter [facility] OUTPATIENT INFUSION [id number] [facility] MEDICAL OFFICE [address] [address] Anemia due to chronic kidney disease, unspecified [...] Parvez Weinstein RN - 07/16/2019 9:09 AM Afsanehounter addended by: Parvez Weinstein RN on: 07/16/2019 [...]
--- OUTSIDE RECORDS SUMMARY | 2024-06-11 08:35 | XMS_ITS | Encounter Summary ---
[facility] Address [address] [place] [address] Care Team Providers Care Lumber Scaler Name Role Phone Unavailable Primary Care Provider Unavailabl e Encounter Details Date Type Department Care Team (Late st Contact Info) Description 12/03/2019 9:40 AM EDT Lab [facility] [address] [place] [address] Anemia, unspecified type; CKD stage [...] 42.7 - 76.0 % 12/03/2019 7:33 PM T [facility] Lymphocyte % 29.3 19.6 - 45.3 % 12/03/2019 7:33 PM EDT [facility] Monocyte % 2.0(L) 5.0 - 12.0 % 12/03/2019 7:33 PM EDT [facility] Eosinophil % 6.1 0.3 - 6.2 % 12/03/2019 7:33 PM EDT [facility] Neutrophils Absolute 5.51 1.70 - 7.00 10*3/mm3 12/03/2019 7:33 PM T [facility] Lymphocytes Absolute 2.58 0.70 - 3.10 10*3/mm3 12/03/2019 7:33 PM EDT [facility] Monocytes Absolute 0.18 0.10 - 0.90 10*3/mm3 12/03/2019 7:33 PM T [facility] Eosinophils Absolute 0.54(H) 0.00 - 0.40 10*3/mm3 12/03/2019 7:33 PM EDT [facility] Anisocytosis Mod/2+ None Seen 12/03/2019 7:33 PM EDT [facility] WBC Morphology Normal Normal 12/03/2019 7:33 PM EDT [facility] Platelet Morphology Normal Normal 12/03/2019 7:33 PM EDT [facility] Blood Venipuncture / Unknown 12/03/2019 9:42 AM EDT 12/03/2019 10:45 AM EDT Ibrahima Talamantes MD LAB BLOOD ORDERABLES F inal Result [facility]
[address] [place] [address], * (ABNORMAL) CBC Auto Differential (12/03/2019 9:42 AM EDT) WBC 8.80 3.40 - 10.80 10*3/mm3 12/03/2019 7:33 PM EDT [facility] RBC 3.19(L) 3.77 - 5.28 10*6/mm3 12/03/2019 7:33 PM EDT [facility] Hemoglobin 9.7(L) 12.0 - 15.9 g/dL 12/03/2019 7:33 PM EDT [facility] Hematocrit 28.8(L) 34.0 - 46.6 % 12/03/2019 7:33 PM EDT [facility] MCV 90.3 79.0 - 97.0 fL 12/03/2019 7:33 PM EDT [facility] MCH 30.4 26.6 - 33.0 pg 12/03/2019 7:33 PM EDT [facility] MCHC 33.7 31.5 - 35.7 g/dL 12/03/2019 7:33 PM EDT [facility] RDW 11.8(L) 12.3 - 15.4 % 12/03/2019 7:33 PM EDT [facility] RDW-SD 38.6 37.0 - 54.0 fl 12/03/2019 7:33 PM EDT [facility] MPV 13.2(H) 6.0 - 12.0 fL 12/03/2019 7:33 PM EDT [facility] Platelets 222 140 - 450 10*3/mm3 12/03/2019 7:33 PM EDT [facility] Blood Venipuncture / Unknown 12/03/2019 9:42 AM EDT 12/03/2019 10:45 AM EDT us Ibrahima Talamantes MD LAB BLOOD ORDERABLES F inal Result Performing Organization Address [facility]/ZIP Co de Phone Number [facility]
[address] [place] [address], * Protein, Urine, Random - Urine, Clean Catch (12/03/2019 9:42 AM EDT) Total Protein, Urine 77.0 mg/dL 12/03/2019 7:50 PM EDT [facility] Urine Urine specimen collection, clean catch / Unknown Collection / Unknown 12/03/2019 9:42 AM EDT 12/03/2019 10:45 AM EDT Narrative [facility] - 12/03/2019 7:50 PM EDT Reference intervals for random urine have not been established. Clinical usage is dependent upon physician's interpretation in combination with other laboratory tests. us Ibrahima Talamantes MD URINE ORDERABLES Final Result Performing Organization Address [facility]/ZIP Co de Phone Number [facility]
[address] [place] [address], * (ABNORMAL) Renal Function Panel (12/03/2019 9:42 AM EDT) Glucose 188(H) 65 - 99 mg/dL 12/03/2019 7:38 PM EDT [facility] BUN 66(H) 6 - 20 mg/dL 12/03/2019 7:38 PM EDT [facility] Creatinine 4.07(H) 0.57 - 1.00 mg/dL 12/03/2019 7:38 PM [facility] Sodium 139 136 - 145 mmol/L 12/03/2019 7:38 PM T [facility] Potassium 4.8 3.5 - 5.2 mmol/L 12/03/2019 7:38 PM [facility] Chloride 103 98 - 107 mmol/L 12/03/2019 7:38 PM [facility] CO2 20.5(L) 22.0 - 29.0 mmol/L 12/03/2019 7:38 PM [facility] Calcium 7.1(L) 8.6 - 10.5 mg/dL 12/03/2019 7:38 PM [facility] Albumin 3.70 3.50 - 5.20 g/dL 12/03/2019 7:38 PM [facility] Phosphorus 7.1(H) 2.5 - 4.5 mg/dL 12/03/2019 7:38 PM [facility] Anion Gap 15.5(H) 5.0 - 15.0 mmol/L 12/03/2019 7:38 PM [facility] BUN/Creatinine Ratio 16.2 7.0 - 25.0 12/03/2019 7:38 PM [facility] eGFR Non Amer 13(L) >60 mL/min/1.7 3 12/03/2019 7:38 PM [facility] Comment:<15 Indicative of ki dney failure. eGFR Amer 12/03/2019 7:38 PM [facility] Comment:<15 Indicative of ki dney failure. Blood Venipuncture / Unknown 12/03/2019 9:42 AM EDT 12/03/2019 10:44 AM EDT [facility] - 12/03/2019 7:38 PM EDT GFR Normal >60 Chronic Kidney Disease <60 Kidney Failure <15 Ibrahima Talamantes MD LAB BLOOD ORDERABLES F inal Result Performing Organization Address [facility] Co de Phone Number [facility]
[address] [place] [address], * Creatinine, Urine, Random - Urine, Clean Catch (12/03/2019 9:42 AM EDT) Creatinine, Urine 27.8 mg/dL 12/03/2019 7:50 PM EDT [facility] Urine Urine specimen collection, clean catch / Unknown Collection / Unknown 12/03/2019 9:42 AM EDT 12/03/2019 10:45 AM EDT Narrative [facility] - 12/03/2019 7:50 PM EDT Reference intervals for random urine have not been established. Clinical usage is dependent upon physician's interpretation in combination with other laboratory tests. Ibrahima Talamantes MD URINE ORDERABLES Final Result Performing Organization Address [facility] Co de Phone Number [facility]
[address] [place] [address], documented in this encounter Visit Diagnoses Diagnosis Anemia, unspecified type CKD stage G5/A3, GFR <15 and albumin creatinine ratio >300 mg/g documented in this encounter
--- OUTSIDE RECORDS SUMMARY | 2024-06-11 08:35 | XMS_ITS | Encounter Summary ---
[facility] Address [address] [place] [address] Care Team Providers Care Paper Latcher Name Role Phone Unavailable Primary Care Provider Unavailabl e Encounter Details Date Type Department Care Team (Late st Contact Info) Description 06/22/2019 7:40 AM EST Lab [facility] [address] [place] [address] Chronic kidney disease, stage IV [...] - 76.0 % 06/22/2019 12:31 PM EST [facility] Lymphocyte % 27.4 19.6 - 45.3 % 06/22/2019 12:31 PM EST [facility] Monocyte % 3.2(L) 5.0 - 12.0 % 06/22/2019 12:31 PM EST [facility] Eosinophil % 2.1 0.3 - 6.2 % 06/22/2019 12:31 PM [facility] Neutrophils Absolute 5.01 1.70 - 7.00 10*3/mm3 06/22/2019 12:31 PM [facility] Lymphocytes Absolute 2.04 0.70 - 3.10 10*3/mm3 06/22/2019 12:31 PM [facility] Monocytes Absolute 0.24 0.10 - 0.90 10*3/mm3 06/22/2019 12:31 PM [facility] Eosinophils Absolute 0.16 0.00 - 0.40 10*3/mm3 06/22/2019 12:31 PM [facility] RBC Morphology Normal Normal 06/22/2019 12:31 PM [facility] Smudge Cells Slight/1+ None Seen 06/22/2019 12:31 PM [facility] Platelet Morphology Normal Normal 06/22/2019 12:31 PM [facility] Blood Venipuncture / Unknown 06/22/2019 7:41 AM EST 06/22/2019 8:19 AM EST us Ming Low MD LAB BLOOD ORDERABLES Final Res ult [facility]
[address] [place] [address], * Urinalysis, Microscopic Only - Urine, Clean Catch (06/22/2019 7:41 AM EST) RBC, UA 0-2 None Seen, 0-2 /HPF 06/22/2019 6:17 PM [facility] WBC, UA 0-2 None Seen, 0-2 /HPF 06/22/2019 6:17 PM [facility] Bacteria, UA None Seen None Seen /HPF 06/22/2019 6:17 PM [facility] Squamous Epithelial Cells, UA 0-2 None Seen, 0-2 /HPF 06/22/2019 6:17 PM [facility] Hyaline Casts, UA None Seen None Seen /LPF 06/22/2019 6:17 PM [facility] Methodology Automated Microscopy 06/22/2019 6:17 PM [facility] Urine Urine specimen collection, clean catch / Unknown Collection / Unknown 06/22/2019 7:41 AM EST 06/22/2019 8:59 AM EST Ming Low MD URINE ORDERABLES Final Result [facility]
[address] [place] [address], * (ABNORMAL) Urinalysis without microscopic (no culture) - Urine, Clean Catch (06/22/2019 7:41 AM EST) Color, UA Yellow Yellow, Straw 06/22/2019 6:10 PM [facility] Appearance, UA Clear Clear 06/22/2019 6:10 PM [facility] pH, UA 7.0 5.0 - 8.0 06/22/2019 6:10 PM [facility] Specific [place], UA 1.010 1.005 - 1.030 06/22/2019 6:10 PM [facility] Glucose, UA 250 mg/dL (1+)(A) Negative 06/22/2019 6:10 PM [facility] Ketones, UA Negative Negative 06/22/2019 6:10 PM [facility] Bilirubin, UA Negative Negative 06/22/2019 6:10 PM [facility] Blood, UA Negative Negative 06/22/2019 6:10 PM [facility] Protein, UA 100 mg/dL (2+)(A) Negative 06/22/2019 6:10 PM [facility] Leuk Esterase, UA Negative Negative 06/22/2019 6:10 PM [facility] Nitrite, UA Negative Negative 06/22/2019 6:10 PM [facility] Urobilinogen, UA 0.2 E.U./dL 0.2 - 1.0 E.U./dL 06/22/2019 6:10 PM [facility] Urine Urine specimen collection, clean catch / Unknown Collection / Unknown 06/22/2019 7:41 AM EST 06/22/2019 8:59 AM EST Ming Low MD URINE ORDERABLES Final Result [facility]
[address] [place] [address], * (ABNORMAL) CBC Auto Differential (06/22/2019 7:41 AM EST) WBC 7.43 3.40 - 10.80 10*3/mm3 06/22/2019 12:31 PM [facility] RBC 3.75(L) 3.77 - 5.28 10*6/mm3 06/22/2019 12:31 PM [facility] Hemoglobin 10.6(L) 12.0 - 15.9 g/dL 06/22/2019 12:31 PM [facility] Hematocrit 33.2(L) 34.0 - 46.6 % 06/22/2019 12:31 PM [facility] MCV 88.5 79.0 - 97.0 fL 06/22/2019 12:31 PM [facility] MCH 28.3 26.6 - 33.0 pg 06/22/2019 12:31 PM [facility] MCHC 31.9 31.5 - 35.7 g/dL 06/22/2019 12:31 PM [facility] RDW 13.3 12.3 - 15.4 % 06/22/2019 12:31 PM [facility] RDW-SD 43.0 37.0 - 54.0 fl 06/22/2019 12:31 PM [facility] MPV 13.9(H) 6.0 - 12.0 fL 06/22/2019 12:31 PM [facility] Platelets 205 140 - 450 10*3/mm3 06/22/2019 12:31 PM [facility] Blood Venipuncture / Unknown 06/22/2019 7:41 AM EST 06/22/2019 8:19 AM EST us Ming Low MD LAB BLOOD ORDERABLES Final Res ult Performing Organization Address [facility] de Phone Number [facility]
[address] [place] [address], * (ABNORMAL) Vitamin D 25 Hydroxy (06/22/2019 7:41 AM EST) 25 Hydroxy, Vitamin D 16.0(L) 30.0 - 100.0 ng/ml 06/22/2019 12:28 PM EST [facility] Blood Venipuncture / Unknown 06/22/2019 7:41 AM EST 06/22/2019 8:19 AM EST Narrative [facility] - 06/22/2019 12:28 PM EST Reference Range for Total Vitamin D 25(OH) Deficiency <20.0 ng/mL Insufficiency 21-29 ng/mL Sufficiency 30-100 ng/mL Toxicity >100 ng/ml us Ming Low MD LAB BLOOD ORDERABLES Final Res ult Performing Organization Address [facility] de Phone Number [facility]
[address] [place] [address], * (ABNORMAL) Renal Function Panel (06/22/2019 7:41 AM EST) Glucose 284(H) 65 - 99 mg/dL 06/22/2019 12:22 PM EST [facility] BUN 51(H) 6 - 20 mg/dL 06/22/2019 12:22 PM EST [facility] Creatinine 4.07(H) 0.57 - 1.00 mg/dL 06/22/2019 12:22 PM EST [facility] Sodium 138 136 - 145 mmol/L 06/22/2019 12:22 PM EST [facility] Potassium 4.8 3.5 - 5.2 mmol/L 06/22/2019 12:22 PM [facility] Chloride 99 98 - 107 mmol/L 06/22/2019 12:22 PM [facility] CO2 23.7 22.0 - 29.0 mmol/L 06/22/2019 12:22 PM [facility] Calcium 8.2(L) 8.6 - 10.5 mg/dL 06/22/2019 12:22 PM EST [facility] Albumin 4.00 3.50 - 5.20 g/dL 06/22/2019 12:22 PM [facility] Phosphorus 5.0(H) 2.5 - 4.5 mg/dL 06/22/2019 12:22 PM [facility] Anion Gap 15.3(H) 5.0 - 15.0 mmol/L 06/22/2019 12:22 PM [facility] BUN/Creatinine Ratio 12.5 7.0 - 25.0 06/22/2019 12:22 PM EST [facility] eGFR Non Amer 13(L) >60 mL/min/1.7 3 06/22/2019 12:22 PM EST [facility] Comment:<15 Indicative of ki dney failure. eGFR Amer 06/22/2019 12:22 PM [facility] Comment:<15 Indicative of ki dney failure. Blood Venipuncture / Unknown 06/22/2019 7:41 AM EST 06/22/2019 8:19 AM EST Narrative [facility] - 06/22/2019 12:22 PM EST GFR Normal >60 Chronic Kidney Disease <60 Kidney Failure <15 us Ming Low MD LAB BLOOD ORDERABLES Final Res ult [facility]
[address] [place] [address], * Protein, Urine, Random - Urine, Clean Catch (06/22/2019 7:41 AM EST) Total Protein, Urine 90.0 mg/dL 06/22/2019 7:24 PM EST [facility] Urine Urine specimen collection, clean catch / Unknown Collection / Unknown 06/22/2019 7:41 AM EST 06/22/2019 8:59 AM EST Narrative [facility] - 06/22/2019 7:24 PM EST Reference intervals for random urine have not been established. Clinical usage is dependent upon physician's interpretation in combination with other laboratory tests. us Ming Low MD URINE ORDERABLES Final Result Performing Organization Address [facility] Phone Number [facility]
[address] [place] [address], * (ABNORMAL) PTH, Intact (06/22/2019 7:41 AM EST) PTH, Intact 339.0(H) 15.0 - 65.0 pg/mL 06/22/2019 12:20 PM EST [facility] Blood Venipuncture / Unknown 06/22/2019 7:41 AM EST 06/22/2019 8:19 AM EST us Ming Low MD LAB BLOOD ORDERABLES Final Res ult Performing Organization Address [facility] Phone Number [facility]
[address] [place] [address], * Ferritin (06/22/2019 7:41 AM EST) Ferritin 78.20 13.00 - 150.00 ng/mL 06/22/2019 12:28 PM EST [facility] Blood Venipuncture / Unknown 06/22/2019 7:41 AM EST 06/22/2019 8:19 AM EST us Ming Low MD LAB BLOOD ORDERABLES Final Res ult Performing Organization Address [facility] Phone Number [facility]
[address] [place] [address], [place] [phone] * Creatinine, Urine, Random - Urine, Clean Catch (06/22/2019 7:41 AM EST) Creatinine, Urine 28.5 mg/dL 06/22/2019 7:24 PM EST [facility] Urine Urine specimen collection, clean catch / Unknown Collection / Unknown 06/22/2019 7:41 AM EST 06/22/2019 8:59 AM EST Narrative [facility] - 06/22/2019 7:24 PM EST Reference intervals for random urine have not been established. Clinical usage is dependent upon physician's interpretation in combination with other laboratory tests. us Ming Low MD URINE ORDERABLES Final Result Performing Organization Address [facility] Phone Number [facility]
[address] [place] [address], * (ABNORMAL) Iron Profile (06/22/2019 7:41 AM EST) Iron 45 37 - 145 mcg/dL 06/22/2019 12:22 PM EST [facility] Iron Saturation (TSAT) 10(L) 20 - 50 % 06/22/2019 12:22 PM EST [facility] Transferrin 297 200 - 360 mg/dL 06/22/2019 12:22 PM EST [facility] TIBC 443 298 - 536 mcg/dL 06/22/2019 12:22 PM EST [facility] Blood Venipuncture / Unknown 06/22/2019 7:41 AM EST 06/22/2019 8:19 AM EST us Ming Low MD LAB BLOOD ORDERABLES Final Res ult Performing Organization Address [facility] Co de Phone Number [facility]
[address] [place] [address], documented in this encounter Visit Diagnoses Diagnosis Chronic kidney disease, stage IV (severe) Chronic kidney disease, Stage IV (severe) documented in this encounter
--- OUTSIDE RECORDS SUMMARY | 2024-06-11 08:35 | XMS_ITS | Encounter Summary ---
Author Organization [facility] Address [address] [place] [address] Care Team Providers Care Delinquency Prevention Officer Name Role Phone Unavailable Primary Care Provider Unavailabl e Reason for Visit * Reason Comments Finger Injury Encounter Details Date Type Department Care Team (Late st Contact Info) Description 04/08/2020 2:54 PM EDT - 04/08/2020 3:29 PM EDT Emergency EMERGENCY DEPARTMENT [address] [place] [id number] Jaquan Arenas, Contusion of left little [...] be sent through Care Everywhere. * Contusion (Vietnamese) documented in this encounter Medications at [...] SLEEVE LAPAROSCOPIC ??? INDUCED 2006 [facility] History reviewed. No pertinent family [...] For this patient encounter, I reviewed the LUBRICATION SERVICER or PA documentation, treatment plan, and medical decision making. Jaquan Arenas, 04/08/2020 15:52 EDT documented in this encounter [...] 04/08/2020 3:26 PM by Surendra Pike MD. us Rashard Moody PA-C [facility] DIAGNOSTIC ANURAG GING ORDERABLES Final Result documented in this encounter Visit Diagnoses Diagnosis Contusion of left little finger without damage to nail, initial encounter- Primary documented in this encounter
--- OUTSIDE RECORDS SUMMARY | 2024-06-11 08:35 | XMS_ITS | Encounter Summary ---
[facility] Organization [facility] Address [address] [place] [address] Care Team Providers Care Sanding Machine Buffer Name Role Phone Unavailable Primary Care Provider Unavailabl e Encounter Details Date Type Department Care Team (Late st Contact Info) Description 01/15/2020 11:45 AM EDT Lab [facility] [address] [place] [address] Chronic kidney disease, stage V [...] Results * Iron (11/20/2020 3:06 PM EDT) Iron 107 37 - 145 mcg/dL 11/21/2020 12:13 AM EDT [facility] Blood Venipuncture / Unknown 11/20/2020 3:06 PM EDT 11/20/2020 3:54 PM EDT us Ming Low MD LAB BLOOD ORDERABLES Final Res ult [facility]
[address] [place] [address], [place] [phone] * (ABNORMAL) Urinalysis, Microscopic Only - Urine, Clean Catch (01/15/2020 12:06 PM EDT) RBC, UA 3-5(A) None Seen, 0-2 /HPF 01/15/2020 6:49 PM EDT [facility] WBC, UA 6-12(A) None Seen, 0-2 /HPF 01/15/2020 6:49 PM EDT [facility] Bacteria, UA 3+(A) None Seen /HPF 01/15/2020 6:49 PM EDT [facility] Squamous Epithelial Cells, UA 3-6(A) None Seen, 0-2 /HPF 01/15/2020 6:49 PM EDT [facility] Hyaline Casts, UA 0-2 None Seen /LPF 01/15/2020 6:49 PM EDT [facility] Methodology Automated Microscopy 01/15/2020 6:49 PM EDT [facility] Urine Urine specimen collection, clean catch / Unknown Collection / Unknown 01/15/2020 12:06 PM EDT 01/15/2020 1:26 PM EDT Ming Low MD URINE ORDERABLES Final Result [facility]
[address] [place] [address], * (ABNORMAL) Urinalysis without microscopic (no culture) - Urine, Clean Catch (01/15/2020 12:06 PM EDT) Color, UA Yellow Yellow, Straw 01/15/2020 6:45 PM EDT [facility] Appearance, UA Clear Clear 01/15/2020 6:45 PM EDT [facility] pH, UA 6.0 5.0 - 8.0 01/15/2020 6:45 PM EDT [facility] Specific [place], UA 1.016 1.005 - 1.030 01/15/2020 6:45 PM EDT [facility] Glucose, UA 100 mg/dL (Trace)(A) Negative 01/15/2020 6:45 PM EDT [facility] Ketones, UA Negative Negative 01/15/2020 6:45 PM EDT [facility] Bilirubin, UA Negative Negative 01/15/2020 6:45 PM EDT [facility] Blood, UA Small (1+)(A) Negative 01/15/2020 6:45 PM EDT [facility] Protein, UA >=300 mg/dL (3+)(A) Negative 01/15/2020 6:45 PM EDT [facility] Leuk Esterase, UA Negative Negative 01/15/2020 6:45 PM EDT [facility] Nitrite, UA Negative Negative 01/15/2020 6:45 PM EDT [facility] Urobilinogen, UA 0.2 E.U./dL 0.2 - 1.0 E.U./dL 01/15/2020 6:45 PM EDT [facility] Urine Urine specimen collection, clean catch / Unknown Collection / Unknown 01/15/2020 12:06 PM EDT 01/15/2020 1:26 PM EDT Ming Low MD URINE ORDERABLES Final Result [facility]
[address] [place] [address], * (ABNORMAL) Manual Differential (01/15/2020 12:06 PM EDT) Neutrophil % 75.8 42.7 - 76.0 % 01/15/2020 7:36 PM EDT [facility] Lymphocyte % 22.2 19.6 - 45.3 % 01/15/2020 7:36 PM EDT [facility] Monocyte % 1.0(L) 5.0 - 12.0 % 01/15/2020 7:36 PM EDT [facility] Eosinophil % 1.0 0.3 - 6.2 % 01/15/2020 7:36 PM EDT [facility] Neutrophils Absolute 7.31(H) 1.70 - 7.00 10*3/mm3 01/15/2020 [facility] Lymphocytes Absolute 2.14 0.70 - 3.10 10*3/mm3 01/15/2020 7:36 PM EDT [facility] Monocytes Absolute 0.10 0.10 - 0.90 10*3/mm3 01/15/2020 7:36 PM EDT [facility] Eosinophils Absolute 0.10 0.00 - 0.40 10*3/mm3 01/15/2020 7:36 PM EDT [facility] RBC Morphology Normal Normal 01/15/2020 7:36 PM EDT [facility] WBC Morphology Normal Normal 01/15/2020 7:36 PM EDT [facility] Platelet Morphology Normal Normal 01/15/2020 7:36 PM EDT [facility] Blood Venipuncture / Unknown 01/15/2020 12:06 PM EDT 01/15/2020 1:11 PM EDT us Ming Low MD LAB BLOOD ORDERABLES Final Res ult [facility]
[address] [place] [address], * (ABNORMAL) CBC Auto Differential (01/15/2020 12:06 PM EDT) WBC 9.65 3.40 - 10.80 10*3/mm3 01/15/2020 7:36 PM EDT [facility] RBC 3.74(L) 3.77 - 5.28 10*6/mm3 01/15/2020 7:36 PM EDT [facility] Hemoglobin 11.1(L) 12.0 - 15.9 g/dL 01/15/2020 7:36 PM EDT [facility] Hematocrit 33.1(L) 34.0 - 46.6 % 01/15/2020 7:36 PM EDT [facility] MCV 88.5 79.0 - 97.0 fL 01/15/2020 7:36 PM EDT [facility] MCH 29.7 26.6 - 33.0 pg 01/15/2020 7:36 PM EDT [facility] MCHC 33.5 31.5 - 35.7 g/dL 01/15/2020 7:36 PM EDT [facility] RDW 12.4 12.3 - 15.4 % 01/15/2020 7:36 PM EDT [facility] RDW-SD 40.4 37.0 - 54.0 fl 01/15/2020 7:36 PM EDT [facility] MPV 12.8(H) 6.0 - 12.0 fL 01/15/2020 7:36 PM EDT [facility] Platelets 292 140 - 450 10*3/mm3 01/15/2020 7:36 PM EDT [facility] Blood Venipuncture / Unknown 01/15/2020 12:06 PM EDT 01/15/2020 1:11 PM EDT Ming Low MD LAB BLOOD ORDERABLES Final Res ult Performing Organization Address City/[facility]/ZIP Co de Phone Number [facility]
[address] [place] [address], * (ABNORMAL) Vitamin D 25 Hydroxy (01/15/2020 12:06 PM EDT) 25 Hydroxy, Vitamin D 18.4(L) 30.0 - 100.0 ng/ml 01/15/2020 7:38 PM EDT [facility] Blood Venipuncture / Unknown 01/15/2020 12:06 PM EDT 01/15/2020 1:10 PM EDT Narrative [facility] - 01/15/2020 7:38 PM EDT Reference Range for Total Vitamin D 25(OH) Deficiency <20.0 ng/mL Insufficiency 21-29 ng/mL Sufficiency 30-100 ng/mL Toxicity >100 ng/ml Results may be falsely increased if patient taking Biotin. Ming Low MD LAB BLOOD ORDERABLES Final Res ult Performing Organization Address City/[facility]/ZIP Co de Phone Number [facility]
[address] [place] [address], * (ABNORMAL) Renal Function Panel (01/15/2020 12:06 PM EDT) Glucose 93 65 - 99 mg/dL 01/15/2020 7:15 PM EDT [facility] BUN 48(H) 6 - 20 mg/dL 01/15/2020 7:15 PM EDT [facility] Creatinine 4.29(H) 0.57 - 1.00 mg/dL 01/15/2020 7:15 PM EDT [facility] Sodium 136 136 - 145 mmol/L 01/15/2020 7:15 PM EDT [facility] Potassium 4.6 3.5 - 5.2 mmol/L 01/15/2020 7:15 PM EDT [facility] Chloride 108(H) 98 - 107 mmol/L 01/15/2020 7:15 PM EDT [facility] CO2 18.0(L) 22.0 - 29.0 mmol/L 01/15/2020 7:15 PM EDT [facility] Calcium 9.1 8.6 - 10.5 mg/dL 01/15/2020 7:15 PM EDT [facility] Albumin 4.00 3.50 - 5.20 g/dL 01/15/2020 7:15 PM EDT [facility] Phosphorus 3.9 2.5 - 4.5 mg/dL 01/15/2020 7:15 PM EDT [facility] Anion Gap 10.0 5.0 - 15.0 mmol/L 01/15/2020 7:15 PM EDT [facility] BUN/Creatinine Ratio 11.2 7.0 - 25.0 01/15/2020 7:15 PM EDT [facility] eGFR Non Amer 12(L) >60 mL/min/1.7 3 01/15/2020 7:15 PM EDT [facility] Comment:<15 Indicative of ki dney failure. eGFR Amer 01/15/2020 7:15 PM EDT [facility] Comment:<15 Indicative of ki dney failure. Blood Venipuncture / Unknown 01/15/2020 12:06 PM EDT 01/15/2020 1:10 PM EDT [facility] - 01/15/2020 7:15 PM EDT GFR Normal >60 Chronic Kidney Disease <60 Kidney Failure <15 us Ming Low MD LAB BLOOD ORDERABLES Final Res ult Performing Organization Address [facility] Co de Phone Number [facility]
[address] [place] [address], * (ABNORMAL) PTH, Intact (01/15/2020 12:06 PM EDT) PTH, Intact 373.0(H) 15.0 - 65.0 pg/mL 01/15/2020 8:03 PM EDT [facility] Blood Venipuncture / Unknown 01/15/2020 12:06 PM EDT 01/15/2020 1:10 PM EDT [facility] - 01/15/2020 8:03 PM EDT Results may be falsely decreased if patient taking Biotin. us Ming Low MD LAB BLOOD ORDERABLES Final Res ult Performing Organization Address [facility] Co de Phone Number [facility]
[address] [place] [address], * (ABNORMAL) Ferritin (01/15/2020 12:06 PM EDT) Ferritin 637.00(H) 13.00 - 150.00 ng/mL 01/15/2020 7:18 PM EDT [facility] Blood Venipuncture / Unknown 01/15/2020 12:06 PM EDT 01/15/2020 1:10 PM EDT [facility] - 01/15/2020 7:18 PM EDT Results may be falsely decreased if patient taking Biotin. us Ming Low MD LAB BLOOD ORDERABLES Final Res ult Performing Organization Address [facility] Co de Phone Number [facility]
[address] [place] [address], * (ABNORMAL) Iron Profile (01/15/2020 12:06 PM EDT) Iron 50 37 - 145 mcg/dL 01/15/2020 7:15 PM EDT [facility] Iron Saturation (TSAT) 19(L) 20 - 50 % 01/15/2020 7:15 PM EDT [facility] Transferrin 181(L) 200 - 360 mg/dL 01/15/2020 7:15 PM EDT [facility] TIBC 270(L) 298 - 536 mcg/dL 01/15/2020 7:15 PM EDT [facility] Blood Venipuncture / Unknown 01/15/2020 12:06 PM EDT 01/15/2020 1:10 PM EDT us Ming Low MD LAB BLOOD ORDERABLES Final Res ult Performing Organization Address [facility] Co de Phone Number [facility]
[address] [place] [address], [place] [phone] documented in this encounter Visit Diagnoses Diagnosis Chronic kidney disease, stage V Chronic kidney disease, Stage V documented in this encounter
--- OUTSIDE RECORDS SUMMARY | 2024-06-11 08:35 | XMS_ITS | Encounter Summary ---
Author Organization [facility] Address [address] [place] [address] Care Team Providers Care Hazardous Waste Management Specialist Name Role Phone Unavailable Primary Care Provider Unavailabl e Reason for Visit * Reason Comments Chest Pain Encounter Details Date Type Department Care Team (Late st Contact Info) Description 07/28/2019 7:56 PM EST - 07/28/2019 9:45 PM EST Emergency [facility] [address] [place] [id number] Christopher Aggarwal MD Bad taste in [...] Care Everywhere. * Nonspecific Chest Pain Adult Wyni-av-Cjei (Ivorian) * Gastroesophageal Reflux Disease Adult Lrto-jp-Begj (Ivorian) documented in this encounter Medications at [...] a few days ago she ate at [facility] and subsequently had a couple days worth of diarrhea and vomiting. She was afraid that shehad been food poisoned . She was feeling better today and went to [employer] about 3 hours prior toarrival. She states after eating at [employer] she had a gut wrenching sensation and [...] Name Type Priority Associated Diagnoses Date /Time [place] Draw Lab STAT 07/28/2019 8 :15 PM [...] 7:[address] Andrzej Gee DO. us Christopher Aggarwal MD IMG DIAGNOSTIC IMAGING O RDERABLES Final Result * (ABNORMAL) CBC Auto Differential (07/28/2019 8:15 PM EST) WBC 5.59 3.40 - 10.80 10*3/mm3 07/28/2019 8:24 PM EST [facility] RBC 3.23(L) 3.77 - 5.28 10*6/mm3 07/28/2019 8:24 PM [facility] Hemoglobin 9.7(L) 12.0 - 15.9 g/dL 07/28/2019 8:24 PM [facility] Hematocrit 30.1(L) 34.0 - 46.6 % 07/28/2019 8:24 PM [facility] MCV 93.2 79.0 - 97.0 fL 07/28/2019 8:24 PM [facility] MCH 30.0 26.6 - 33.0 pg 07/28/2019 8:24 PM [facility] MCHC 32.2 31.5 - 35.7 g/dL 07/28/2019 8:24 PM [facility] RDW 13.9 12.3 - 15.4 % 07/28/2019 8:24 PM [facility] RDW-SD 46.9 37.0 - 54.0 fl 07/28/2019 8:24 PM [facility] MPV 12.7(H) 6.0 - 12.0 fL 07/28/2019 8:24 PM [facility] Platelets 176 140 - 450 10*3/mm3 07/28/2019 8:24 PM [facility] Neutrophil % 53.5 42.7 - 76.0 % 07/28/2019 8:24 PM [facility] Lymphocyte % 35.6 19.6 - 45.3 % 07/28/2019 8:24 PM [facility] Monocyte % 6.8 5.0 - 12.0 % 07/28/2019 8:24 PM [facility] Eosinophil % 3.2 0.3 - 6.2 % 07/28/2019 8:24 PM [facility] Basophil % 0.4 0.0 - 1.5 % 07/28/2019 8:24 PM [facility] Immature Grans % 0.5 0.0 - 0.5 % 07/28/2019 8:24 PM [facility] Neutrophils, Absolute 2.99 1.70 - 7.00 10*3/mm3 07/28/2019 8:24 PM [facility] Lymphocytes, Absolute 1.99 0.70 - 3.10 10*3/mm3 07/28/2019 8:24 PM EST [facility] Monocytes, Absolute 0.38 0.10 - 0.90 10*3/mm3 07/28/2019 8:24 PM EST [facility] Eosinophils, Absolute 0.18 0.00 - 0.40 10*3/mm3 07/28/2019 8:24 PM EST [facility] Basophils, Absolute 0.02 0.00 - 0.20 10*3/mm3 07/28/2019 8:24 PM EST [facility] Immature Grans, Absolute 0.03 0.00 - 0.05 10*3/mm3 07/28/2019 8:24 PM EST [facility] nRBC 0.0 0.0 - 0.2 /100 WBC 07/28/2019 8:24 PM EST [facility] Blood Venipuncture / Unknown 07/28/2019 8:15 PM EST 07/28/2019 8:20 PM EST Christopher Aggarwal MD LAB BLOOD ORDERABLES Fin al Result [facility]
[address] [place] [address], * Gold Top - SST (07/28/2019 8:15 PM EST) Extra Tube Hold for add-ons. 07/28/2019 9:30 PM EST [facility] Comment:Auto resulted. Blood Venipuncture / Unknown 07/28/2019 8:15 PM EST 07/28/2019 8:20 PM EST Christopher Aggarwal MD LAB BLOOD ORDER ONLY Fin al Result [facility]
[address] [place] [address], * Lavender Top (07/28/2019 8:15 PM EST) Extra Tube hold for add-on 07/28/2019 9:30 PM EST [facility] Comment:Auto resulted Blood Venipuncture / Unknown 07/28/2019 8:15 PM EST 07/28/2019 8:20 PM EST us Christopher Aggarwal MD LAB BLOOD ORDER ONLY Fin al Result Performing Organization Address City/[facility]/ZIP Co de Phone Number [facility]
[address] [place] [address], * Green Top (Gel) (07/28/2019 8:15 PM EST) Extra Tube Hold for add-ons. 07/28/2019 9:30 PM EST [facility] Comment:Auto resulted. Blood Venipuncture / Unknown 07/28/2019 8:15 PM EST 07/28/2019 8:20 PM EST us Christopher Aggarwal MD LAB BLOOD ORDER ONLY Fin al Result Performing Organization Address [facility] de Phone Number [facility]
[address] [place] [address], * Light Blue Top (07/28/2019 8:15 PM EST) Extra Tube hold for add-on 07/28/2019 9:30 PM EST [facility] Comment:Auto resulted Blood Venipuncture / Unknown 07/28/2019 8:15 PM EST 07/28/2019 8:20 PM EST us Christopher Aggarwal MD LAB BLOOD ORDER ONLY Fin al Result Performing Organization Address City/[facility] Co de Phone Number [facility]
[address] [place] [address], * Troponin (07/28/2019 8:15 PM EST) Troponin T <0.010 0.000 - 0.030 ng/mL 07/28/2019 8:45 PM EST [facility] Blood Venipuncture / Unknown 07/28/2019 8:15 PM EST 07/28/2019 8:20 PM EST Narrative [facility] - 07/28/2019 8:45 PM EST Troponin T Reference Range: <= 0.03 ng/mL- ?? Negative for AMI >0.03 ng/mL- ? Abnormal for myocardial necrosis. ??Clinicians would have to utilize clinical acumen, EKG, Troponin and serial changes to determine if it is an Acute Myocardial Infarction or myocardial injury due to an underlying chronic condition. Results may be falsely decreased if patient taking Biotin. Christopher Aggarwal MD LAB BLOOD ORDERABLES Fin al Result [facility]
[address] [place] [address], * (ABNORMAL) Comprehensive Metabolic Panel (07/28/2019 8:15 PM EST) Glucose 210(H) 65 - 99 mg/dL 07/28/2019 8:45 PM EST [facility] Comment:Glucose >180, Hemogl obin A1C recommended. BUN 62(H) 6 - 20 mg/dL 07/28/2019 8:45 PM EST [facility] Creatinine 4.75(H) 0.57 - 1.00 mg/dL 07/28/2019 8:45 PM EST [facility] Sodium 140 136 - 145 mmol/L 07/28/2019 8:45 PM EST [facility] Potassium 4.3 3.5 - 5.2 mmol/L 07/28/2019 8:45 PM EST [facility] Chloride 104 98 - 107 mmol/L 07/28/2019 8:45 PM EST [facility] CO2 19.5(L) 22.0 - 29.0 mmol/L 07/28/2019 8:45 PM EST [facility] Calcium 7.5(L) 8.6 - 10.5 mg/dL 07/28/2019 8:45 PM [facility] Total Protein 6.7 6.0 - 8.5 g/dL 07/28/2019 8:45 PM [facility] Albumin 3.80 3.50 - 5.20 g/dL 07/28/2019 8:45 PM [facility] ALT (SGPT) 25 1 - 33 U/L 07/28/2019 8:45 PM [facility] AST (SGOT) 18 1 - 32 U/L 07/28/2019 8:45 PM [facility] Alkaline Phosphatase 57 39 - 117 U/L 07/28/2019 8:45 PM [facility] Total Bilirubin <0.2(L) 0.2 - 1.2 mg/dL 07/28/2019 8:45 PM [facility] eGFR Non Amer 11(L) >60 mL/min/1.7 3 07/28/2019 8:45 PM [facility] Comment:<15 Indicative of ki dney failure. eGFR Amer 07/28/2019 8:45 PM [facility] Comment:<15 Indicative of ki dney failure. Globulin 2.9 gm/dL 07/28/2019 8:45 PM [facility] A/G Ratio 1.3 g/dL 07/28/2019 8:45 PM [facility] BUN/Creatinine Ratio 13.1 7.0 - 25.0 07/28/2019 8:45 PM [facility] Anion Gap 16.5(H) 5.0 - 15.0 mmol/L 07/28/2019 8:45 PM [facility] Blood Venipuncture / Unknown 07/28/2019 8:15 PM EST 07/28/2019 8:20 PM EST [facility] - 07/28/2019 8:45 PM EST GFR Normal >60 Chronic Kidney Disease <60 Kidney Failure <15 Christopher Aggarwal MD LAB BLOOD ORDERABLES Fin al Result [facility]
[address] [place] [address], documented in this encounter Visit Diagnoses Diagnosis [...]
--- OUTSIDE RECORDS SUMMARY | 2024-06-11 08:35 | XMS_ITS | Encounter Summary ---
Author Organization [facility] Address [address] [place] [address] Care Team Providers Care Residence Life Director Name Role Phone Unavailable Primary Care Provider Unavailabl e Reason for Visit * Reason Comments Outpatient Infusion * Episode Based Medications (Routine) - Closed Specialty Diagnoses / Procedures Referred By Contac t Referred To Contact Diagnoses Chronic kidney disease, stage IV (severe) Anemia due to chronic kidney disease, unspecified CKD stage Procedures [place] [facility] Kamilla Mccullough, PharmD [address] [place] [address] Phone: tel: Referral ID Status Reason Start Date Expiration Date Visits Re quested Visits Authorized [id number] Closed 07/06/2019 08/05/2019 1 1 Encounter Details Date Type Department Care Team (Latest Contact Info) Description 07/09/2019 1:00 PM EST - 07/09/2019 11:59 PM [facility] Hospital Encounter [facility] OUTPATIENT [facility]ION [address] [facility] [place] [address] Anemia due to chronic kidney disease, unspecified [...] mL IVPB 750 mg, Intravenous, Once, On Tue07/09/19 at 1400, For 1 dose, For Weight [...]
--- OUTSIDE RECORDS SUMMARY | 2024-06-11 08:35 | XMS_ITS | Encounter Summary ---
[facility] Address [address] [place] [address] Care Team Providers Care Oval Or Circular Glass Cutter Name Role Phone Unavailable Primary Care Provider Unavailabl e Encounter Details Date Type Department Care Team (Late st Contact Info) Description 07/23/2019 10:00 AM EST Lab [facility] [address] [place] [address] Chronic kidney disease, stage V [...] B Confirmation Tube (07/23/2019 10:03 AM EST) Extra Tube Hold for add-ons. 07/23/2019 10:15 PM EST [facility] Comment:Auto resulted. Blood Venipuncture / Unknown 07/23/2019 10:03 AM EST 07/23/2019 10:44 AM EST us Mukul Stevens MD LAB BLOOD ORDERABLES F inal Result Performing Organization Address City/[facility] Co de Phone Number [facility]
[address] [place] [address], * Hepatitis B Surface Antigen (07/23/2019 10:03 AM EST) Pathologist [facility] Hepatitis B Surface Ag Non-Reacti ve Non-Reacti ve 07/23/2019 6:32 PM EST [facility] Blood Venipuncture / Unknown 07/23/2019 10:03 AM EST 07/23/2019 10:39 AM EST us Mukul Stevens MD LAB BLOOD ORDERABLES F inal Result Performing Organization Address City/[facility]/ZIP Co de Phone Number [facility]
[address] [place] [address], * Hepatitis C Antibody (07/23/2019 10:03 AM EST) Pathologist [facility] Hepatitis C Ab Non-Reacti ve Non-Reacti ve 07/23/2019 6:31 PM EST [facility] Blood Venipuncture / Unknown 07/23/2019 10:03 AM EST 07/23/2019 10:38 AM EST us Mukul Stevens MD LAB BLOOD ORDERABLES F inal Result Performing Organization Address [facility] Co de Phone Number [facility]
[address] [place] [address], * (ABNORMAL) Hepatitis B Surface Antibody (07/23/2019 10:03 AM EST) Hep B S Ab Reactive(A ) Non-Reacti ve 07/23/2019 6:31 PM EST [facility] Blood Venipuncture / Unknown 07/23/2019 10:03 AM EST 07/23/2019 10:38 AM EST Mukul Stevens MD LAB BLOOD ORDERABLES F inal Result Performing Organization Address [facility] Co de Phone Number [facility]
[address] [place] [address], documented in this encounter Visit Diagnoses Diagnosis Chronic kidney disease, stage V Chronic kidney disease, Stage V documented in this encounter
--- OUTSIDE RECORDS SUMMARY | 2024-06-11 08:35 | XMS_ITS | Encounter Summary ---
Author Organization [facility] ystem Address [address] [place] [address] Care Team Providers Care Broadcast News Producer Name Role Phone Unavailable Primary Care Provider Unavailabl e Reason for Visit * Reason Comments Arm Injury Bronchitis Encounter Details Date Type Department Care Team (Late st Contact Info) Description 05/07/2019 7:53 PM EDT - 05/07/2019 10:02 PM EDT Emergency PSYCHIATRIC EMERGENCY DEPARTMENT [address] [place] [phone] Dominik Rizo MD [address] [facility] [address] [place] [address] Sprain of right shoulder, unspecified shoulder sprain [...] sent through Care Everywhere. * Shoulder Sprain (Turkish) documented in this encounter Medications at Time [...] ??? SECTION ??? INDUCED 2006 [facility] History reviewed. No pertinent family [...] For this patient encounter, I reviewed the RN SOCIAL SERVICES or PA documentation, treatment plan, and medical [...]
--- OUTSIDE RECORDS SUMMARY | 2024-06-11 08:35 | XMS_ITS | Encounter Summary ---
[facility] [address] [place] [address] Care Team Providers Care Tin Flopper Name Role Phone Unavailable Primary Care Provider Unavailabl e Reason for Visit * Reason Comments Fall Encounter Details Date Type Department Care Team (Late st Contact Info) Description 06/15/2019 2:26 PM EST - 06/15/2019 3:21 PM EST Emergency [facility] EMERGENCY DEPARTMENT [address] [place] [phone] Jaquan Arenas, Sprain of interphalangeal joint [...] through Care Everywhere. * Finger Sprain Adult (Slovak) * Chest Wall Pain [id number] (Slovak) documented in this encounter Medications at Time [...] ??? SECTION ??? INDUCED 2006 [facility] History reviewed. No pertinent family history. Social [...] For this patient encounter, I reviewed the PAPER PATTERN INSPECTOR or PA documentation, treatment plan, and medical [...] 06/15/2019 3:08 PM by Brittny Lacey M.D.. us Rashard Moody PA-C [facility] [...]
--- OUTSIDE RECORDS SUMMARY | 2024-06-11 08:36 | XMS_ITS | Encounter Summary ---
[facility] Address [address] [place] [id number] Care Team Providers Care Community Service Officer Name Role Phone Unavailable Primary Care Provider Unavailabl e Reason for Visit * Reason Onset Date Comments Other 03/06/2019 Ayah with Disab ility Determination Encounter Details Date Type Department Care Team (Late st Contact Info) Description 03/06/2019 Telephone [facility] HEMATOLOGY & ONCOLOGY [address] [facility] [address] [place] [address] Mare Johnston MD [address] [facility] [address] [place] [address] Other (Ayah with Disability Determination) Social History [...] REQUEST Contact: AYAH WITH DISABILITY DETERMINATIONS IN [facility] CALLED REGARDING MEDICAL RECORDS REQUEST CALL AYAH BACK REGARDING THIS documented in this encounter Plan of Treatment Not on file documented as of this encounter Visit Diagnoses Not on filedocumented in this encounter
--- OUTSIDE RECORDS SUMMARY | 2024-06-11 08:36 | XMS_ITS | Encounter Summary ---
Author Organization [facility] ystem Address [address] [place] [id number] Care Team Providers Care Quail Farmer Name Role Phone Unavailable Primary Care Provider Unavailabl e Reason for Visit * Reason Comments Headache Encounter Details Date Type Department Care Team (Late st Contact Info) Description 02/13/2019 7:53 PM EDT - 02/13/2019 9:20 PM EDT Emergency [facility] EMERGENCY DEPARTMENT [address] [place] [address] Phill Gama, DO [address] [place], [place] [id number] Folliculitis (Primary Dx); Nonintractable headache, unspecified chronicity [...] Care Everywhere. * General Headache Without Cause Asjs-bf-Pyyj (Bulgarian) documented in this encounter Medications at Time [...] Times a Day With Meals. 06/07/20 24 cyclobenzaprine (FLEXERIL) 5 MG tablet Take 1 [...] Pain . 12 tablet 09/01/2018 02/16/20 23 lisinopril (PRINIVIL,ZESTRIL) 10 MG tablet [...] unspecified headache type Rashard Moody PA-C 02/13/19 0098 Cosigned by Phill Gama DO at 02/13/2019 10:54 PM EDT Associated attestation - Phill Gama DO - 02/13/2019 10:54 PM EDT For this patient encounter, I reviewed the PIN MAKER or PA documentation, treatment plan, and medical decision making. Phill Gmaa DO 02/13/2019 10:54 PM documented in this [...] MAR Action Action Date Dose Rate Site vemktxokcd-hvrgoypgjduoy-pzvrbvl e (FIORICET, ESGIC) 50-325-40 MG per tablet [...] EDT. Scheduled Medication Order 02/11/2019 02/12/2019 02/13/2019 meydthrugo-opycocsckhhpi-dvmytpsp (FIORICET, ESGIC) 50-325-40 MG per tablet 1 [...]
--- OUTSIDE RECORDS SUMMARY | 2024-06-11 08:36 | XMS_ITS | Encounter Summary ---
[facility] [address] [place] [address] Care Team Providers Care Drop Machine Operator Name Role Phone Unavailable Primary Care Provider Unavailabl e Encounter Details Date Type Department Care Team (Late st Contact Info) Description 12/27/2018 4:15 PM EDT Lab [facility] [address] [place] [address] Vitamin D deficiency; Chronic kidney [...] - 10.80 10*3/mm3 12/27/2018 5:25 PM EDT [facility] RBC 3.96 3.77 - 5.28 10*6/mm3 12/27/2018 5:25 PM EDT [facility] Hemoglobin 11.4(L) 12.0 - 15.9 g/dL 12/27/2018 5:25 PM EDT [facility] Hematocrit 34.9 34.0 - 46.6 % 12/27/2018 5:25 PM EDT [facility] MCV 88.1 79.0 - 97.0 fL 12/27/2018 5:25 PM EDT [facility] MCH 28.8 26.6 - 33.0 pg 12/27/2018 5:25 PM EDT [facility] MCHC 32.7 31.5 - 35.7 g/dL 12/27/2018 5:25 PM EDT [facility] RDW 12.8 12.3 - 15.4 % 12/27/2018 5:25 PM EDT [facility] RDW-SD 40.4 37.0 - 54.0 fl 12/27/2018 5:25 PM EDT [facility] MPV 13.0(H) 6.0 - 12.0 fL 12/27/2018 5:25 PM EDT [facility] Platelets 263 140 - 450 10*3/mm3 12/27/2018 5:25 PM EDT [facility] Neutrophil % 54.8 42.7 - 76.0 % 12/27/2018 5:25 PM EDT [facility] Lymphocyte % 35.3 19.6 - 45.3 % 12/27/2018 5:25 PM EDT [facility] Monocyte % 5.6 5.0 - 12.0 % 12/27/2018 5:25 PM EDT [facility] Eosinophil % 3.4 0.3 - 6.2 % 12/27/2018 5:25 PM EDT [facility] Basophil % 0.4 0.0 - 1.5 % 12/27/2018 5:25 PM EDT [facility] Immature Grans % 0.5 0.0 - 0.5 % 12/27/2018 5:25 PM EDT [facility] Neutrophils, Absolute 5.62 1.70 - 7.00 10*3/mm3 12/27/2018 5:25 PM EDT [facility] Lymphocytes, Absolute 3.63(H) 0.70 - 3.10 10*3/mm3 12/27/2018 5:25 PM EDT [facility] Monocytes, Absolute 0.58 0.10 - 0.90 10*3/mm3 12/27/2018 5:25 PM EDT [facility] Eosinophils, Absolute 0.35 0.00 - 0.40 10*3/mm3 12/27/2018 5:25 PM EDT [facility] Basophils, Absolute 0.04 0.00 - 0.20 10*3/mm3 12/27/2018 5:25 PM EDT [facility] Immature Grans, Absolute 0.05 0.00 - 0.05 10*3/mm3 12/27/2018 5:25 PM EDT [facility] nRBC 0.0 0.0 - 0.2 /100 WBC 12/27/2018 5:25 PM EDT [facility] Blood Venipuncture / Unknown 12/27/2018 5:05 PM EDT 12/27/2018 5:19 PM EDT us Mukul Stevens MD LAB BLOOD ORDERABLES F inal Result [facility]
[address] [place] [address], [place] [phone] * (ABNORMAL) Renal Function Panel (12/27/2018 5:05 PM EDT) [facility] Glucose 82 74 - 98 mg/dL 12/27/2018 5:54 PM EDT [facility] BUN 41(H) 7 - 20 mg/dL 12/27/2018 5:54 PM EDT [facility] Creatinine 3.70(H) 0.60 - 1.30 mg/dL 12/27/2018 5:54 PM EDT [facility] Sodium 140 137 - 145 mmol/L 12/27/2018 5:54 PM EDT [facility] Potassium 4.5 3.5 - 5.1 mmol/L 12/27/2018 5:54 PM EDT [facility] Chloride 102 98 - 107 mmol/L 12/27/2018 5:54 PM EDT [facility] CO2 24.0(L) 26.0 - 30.0 mmol/L 12/27/2018 5:54 PM EDT [facility] Calcium 8.7 8.4 - 10.2 mg/dL 12/27/2018 5:54 PM EDT [facility] Albumin 4.60 3.50 - 5.00 g/dL 12/27/2018 5:54 PM EDT [facility] Phosphorus 7.3(H) 2.5 - 4.5 mg/dL 12/27/2018 5:54 PM EDT [facility] Anion Gap 18.5 10.0 - 20.0 mmol/L 12/27/2018 5:54 PM EDT [facility] BUN/Creatinine Ratio 11.1 7.1 - 23.5 12/27/2018 5:54 PM EDT [facility] eGFR Non Amer 14(L) >60 mL/min/1.7 3 12/27/2018 5:54 PM EDT [facility] Comment:<15 Indicative of ki dney failure. eGFR Amer >60 mL/min/1.7 3 12/27/2018 5:54 PM EDT [facility] Comment:<15 Indicative of ki dney failure. Blood Venipuncture / Unknown 12/27/2018 5:05 PM EDT 12/27/2018 5:19 PM EDT [facility] - 12/27/2018 5:54 PM EDT GFR Normal >60 Chronic Kidney Disease <60 Kidney Failure <15 Mukul Stevens MD LAB BLOOD ORDERABLES F inal Result Performing Organization Address City/[facility]/ZIP Co de Phone Number [facility]
[address] [place] [address], * (ABNORMAL) PTH, Intact (12/27/2018 5:05 PM EDT) PTH, Intact 201(H) 15 - 65 pg/mL 12/28/2018 4:12 PM EDT [facility] Blood Venipuncture / Unknown 12/27/2018 5:05 PM EDT 12/27/2018 5:19 PM EDT [facility] - 12/28/2018 4:12 PM EDT Performed at: ??01 - [facility] [address] ??[id number] Sas Programmer Remote: Jacob Whaley PhD, Phone: ??[phone] Mukul Stevens MD LAB BLOOD ORDERABLES F inal Result Performing Organization Address [facility] Co de Phone Number [facility] [address] [place] [id number], * Vitamin D 25 Hydroxy (12/27/2018 5:05 PM EDT) 25 Hydroxy, Vitamin D 24.7 ng/ml 12/27/2018 6:20 PM EDT [facility] Blood Venipuncture / Unknown 12/27/2018 5:05 PM EDT 12/27/2018 5:19 PM EDT [facility] - 12/27/2018 6:20 PM EDT Interpretation ?ng/mL ? Deficient ? <20 Insufficient ? 20-29 Sufficient ? 30-100 Potential Toxicity ? >100 As per:. Eryn CONNELL, Haresh KANG, Marlin BARONE, et al. Evaluation, treatment, and prevention of vitamin D deficiency: ??an Endocrine Society clinical practice guideline. JCEM. 2011 Jan; 96(7):1911-30. us Mukul Stevens MD LAB BLOOD ORDERABLES F inal Result [facility]
[address] [place] [address], [place] [phone] documented in this encounter Visit Diagnoses Diagnosis Vitamin D deficiency Chronic kidney disease, stage IV (severe) Chronic kidney disease, Stage IV (severe) Hyperparathyroidism, secondary documented in this encounter
--- OUTSIDE RECORDS SUMMARY | 2024-06-11 08:36 | XMS_ITS | Encounter Summary ---
Author Organization [facility] ystem Address [address] [place] [address] Care Team Providers Care Assistant General Manager Name Role Phone Unavailable Primary Care Provider Unavailabl e Reason for Visit * Reason Comments Chest Pain Encounter Details Date Type Department Care Team (Late st Contact Info) Description 04/12/2019 8:24 PM EDT - 04/12/2019 8:56 PM EDT Emergency [facility] EMERGENCY DEPARTMENT [address] [place] [phone] Emergency, Triage Protocol, [place] [address] Discharge Disposition: Left Without Being Seen Social [...] for Nausea or Vomiting. 20 tablet 12/25/2018 10/17/20 19 ondansetron ODT (ZOFRAN-ODT) 4 MG disintegrating [...] CBC Auto Differential (04/12/2019 8:37 PM EDT) WBC 9.74 3.40 - 10.80 10*3/mm3 04/12/2019 8:56 PM EDT [facility] RBC 3.81 3.77 - 5.28 10*6/mm3 04/12/2019 8:56 PM EDT [facility] Hemoglobin 10.8(L) 12.0 - 15.9 g/dL 04/12/2019 8:56 PM EDT [facility] Hematocrit 34.7 34.0 - 46.6 % 04/12/2019 8:56 PM EDT [facility] MCV 91.1 79.0 - 97.0 fL 04/12/2019 8:56 PM EDT [facility] MCH 28.3 26.6 - 33.0 pg 04/12/2019 8:56 PM EDT [facility] MCHC 31.1(L) 31.5 - 35.7 g/dL 04/12/2019 8:56 PM EDT [facility] RDW 13.0 12.3 - 15.4 % 04/12/2019 8:56 PM EDT [facility] RDW-SD 42.8 37.0 - 54.0 fl 04/12/2019 8:56 PM EDT [facility] MPV 12.7(H) 6.0 - 12.0 fL 04/12/2019 8:56 PM EDT [facility] Platelets 252 140 - 450 10*3/mm3 04/12/2019 8:56 PM EDT [facility] Neutrophil % 61.6 42.7 - 76.0 % 04/12/2019 8:56 PM EDT [facility] Lymphocyte % 28.4 19.6 - 45.3 % 04/12/2019 8:56 PM EDT [facility] Monocyte % 5.6 5.0 - 12.0 % 04/12/2019 8:56 PM EDT [facility] Eosinophil % 3.7 0.3 - 6.2 % 04/12/2019 8:56 PM EDT [facility] Basophil % 0.4 0.0 - 1.5 % 04/12/2019 8:56 PM EDT [facility] Immature Grans % 0.3 0.0 - 0.5 % 04/12/2019 8:56 PM EDT [facility] Neutrophils, Absolute 5.99 1.70 - 7.00 10*3/mm3 04/12/2019 8:56 PM EDT [facility] Lymphocytes, Absolute 2.77 0.70 - 3.10 10*3/mm3 04/12/2019 8:56 PM EDT [facility] Monocytes, Absolute 0.55 0.10 - 0.90 10*3/mm3 04/12/2019 8:56 PM EDT [facility] Eosinophils, Absolute 0.36 0.00 - 0.40 10*3/mm3 04/12/2019 8:56 PM EDT [facility] Basophils, Absolute 0.04 0.00 - 0.20 10*3/mm3 04/12/2019 8:56 PM EDT [facility] Immature Grans, Absolute 0.03 0.00 - 0.05 10*3/mm3 04/12/2019 8:56 PM EDT [facility] nRBC 0.0 0.0 - 0.2 /100 WBC 04/12/2019 8:56 PM EDT [facility] Blood Venipuncture / Unknown 04/12/2019 8:37 PM EDT 04/12/2019 8:51 PM EDT us Triage Protocol Emergency MD LAB BLOOD ORDERABLE S Final Result [facility]
[address] [place] [address], * Gold Top - SST (04/12/2019 8:37 PM EDT) Extra Tube Hold for add-ons. 04/12/2019 10:21 PM EDT [facility] Comment:Auto resulted. Blood Venipuncture / Unknown 04/12/2019 8:37 PM EDT 04/12/2019 8:51 PM EDT Triage Protocol Emergency MD LAB BLOOD ORDER ONL Y Final Result Performing Organization Address [facility] Co de Phone Number [facility]
[address] [place] [address], * Lavender Top (04/12/2019 8:37 PM EDT) Extra Tube hold for add-on 04/12/2019 10:21 PM EDT [facility] Comment:Auto resulted Blood Venipuncture / Unknown 04/12/2019 8:37 PM EDT 04/12/2019 8:51 PM EDT Triage Protocol Emergency MD LAB BLOOD ORDER ONL Y Final Result Performing Organization Address [facility] Phone Number [facility]
[address] [place] [address], * Green Top (Gel) (04/12/2019 8:37 PM EDT) Extra Tube Hold for add-ons. 04/12/2019 10:21 PM EDT [facility] Comment:Auto resulted. Blood Venipuncture / Unknown 04/12/2019 8:37 PM EDT 04/12/2019 8:51 PM EDT Triage Protocol Emergency MD LAB BLOOD ORDER ONL Y Final Result Performing Organization Address [facility] Co de Phone Number [facility]
[address] [place] [address], * Light Blue Top (04/12/2019 8:37 PM EDT) Extra Tube hold for add-on 04/12/2019 10:21 PM EDT [facility] Comment:Auto resulted Blood Venipuncture / Unknown 04/12/2019 8:37 PM EDT 04/12/2019 8:51 PM EDT Triage Protocol Emergency MD LAB BLOOD ORDER ONL Y Final Result Performing Organization Address [facility]/ZIP Co de Phone Number [facility]
[address] [place] [address], * (ABNORMAL) BNP (04/12/2019 8:37 PM EDT) proBNP 892.6(H) 5.0 - 450.0 pg/mL 04/12/2019 9:13 PM EDT [facility] Blood Venipuncture / Unknown 04/12/2019 8:37 PM EDT 04/12/2019 8:51 PM EDT Narrative [facility] - 04/12/2019 9:13 PM EDT Among patients with dyspnea, NT-proBNP is highly sensitive for the detection of acute congestive heart failure. In addition NT-proBNP of <300 pg/ml effectively rules out acute congestive heart failure with 99% negative predictive value. us Kemi Dai MD LAB BLOOD ORDERABLES Final Res ult Performing Organization Address [facility] de Phone Number [facility]
[address] [place] [address], * Lipase (04/12/2019 8:37 PM EDT) Lipase 28 13 - 60 U/L 04/12/2019 9:20 PM EDT [facility] Blood Venipuncture / Unknown 04/12/2019 8:37 PM EDT 04/12/2019 8:51 PM EDT us Kemi Dai MD LAB BLOOD ORDERABLES Final Res ult Performing Organization Address [facility] Co de Phone Number [facility]
[address] [place] [address], [place] [phone] * (ABNORMAL) Comprehensive Metabolic Panel (04/12/2019 8:37 PM EDT) [facility] Glucose 195(H) 65 - 99 mg/dL 04/12/2019 9:20 PM EDT [facility] BUN 43(H) 6 - 20 mg/dL 04/12/2019 9:20 PM EDT [facility] Creatinine 4.04(H) 0.57 - 1.00 mg/dL 04/12/2019 9:20 PM EDT [facility] Sodium 140 136 - 145 mmol/L 04/12/2019 9:20 PM EDT [facility] Potassium 4.8 3.5 - 5.2 mmol/L 04/12/2019 9:20 PM EDT [facility] Chloride 103 98 - 107 mmol/L 04/12/2019 9:20 PM EDT [facility] CO2 22.0 22.0 - 29.0 mmol/L 04/12/2019 9:20 PM EDT [facility] Calcium 7.8(L) 8.6 - 10.5 mg/dL 04/12/2019 9:20 PM EDT [facility] Total Protein 7.2 6.0 - 8.5 g/dL 04/12/2019 9:20 PM EDT [facility] Albumin 3.90 3.50 - 5.20 g/dL 04/12/2019 9:20 PM EDT [facility] ALT (SGPT) 13 1 - 33 U/L 04/12/2019 9:20 PM EDT [facility] AST (SGOT) 10 1 - 32 U/L 04/12/2019 9:20 PM EDT [facility] Alkaline Phosphatase 63 39 - 117 U/L 04/12/2019 9:20 PM EDT [facility] Total Bilirubin <0.2(L) 0.2 - 1.2 mg/dL 04/12/2019 9:20 PM EDT [facility] eGFR Non Amer 13(L) >60 mL/min/1.7 3 04/12/2019 9:20 PM EDT [facility] Comment:<15 Indicative of ki dney failure. eGFR Amer 04/12/2019 9:20 PM EDT [facility] Comment:<15 Indicative of ki dney failure. Globulin 3.3 gm/dL 04/12/2019 9:20 PM EDT [facility] A/G Ratio 1.2 g/dL 04/12/2019 9:20 PM EDT [facility] BUN/Creatinine Ratio 10.6 7.0 - 25.0 04/12/2019 9:20 PM EDT [facility] Anion Gap 15.0 5.0 - 15.0 mmol/L 04/12/2019 9:20 PM EDT [facility] Blood Venipuncture / Unknown 04/12/2019 8:37 PM EDT 04/12/2019 8:51 PM EDT [facility] - 04/12/2019 9:20 PM EDT GFR Normal >60 Chronic Kidney Disease <60 Kidney Failure <15 Kemi Dai MD LAB BLOOD ORDERABLES Final Res ult [facility]
[address] [place] [address], * Troponin (04/12/2019 8:37 PM EDT) Troponin T <0.010 0.000 - 0.030 ng/mL 04/12/2019 9:17 PM EDT [facility] Blood Venipuncture / Unknown 04/12/2019 8:37 PM EDT 04/12/2019 8:51 PM EDT [facility] - 04/12/2019 9:17 PM EDT Troponin T Reference Range: <= 0.03 ng/mL- ?? Negative for AMI >0.03 ng/mL- ? Abnormal for myocardial necrosis. ??Clinicians would have to utilize clinical acumen, EKG, Troponin and serial changes to determine if it is an Acute Myocardial Infarction or myocardial injury due to an underlying chronic condition. us Kemi Dai MD LAB BLOOD ORDERABLES Final Res ult [facility]
[address] [place] [address], * ECG 12 Lead (04/12/2019 8:35 PM [...] significant change was found Confirmed by MALAIKA ??KEMI SANFORD (31) on 04/14/2019 11:11:59 AM Referred By: ER ? Confirmed By:KEMI DAI ??MD Procedure Note Kemi Dai MD - 04/14/2019 Test Reason : CP [...] significant change was found Confirmed by KEMI DAI MD ([id number]) on 04/14/2019 11:11:59 AM Referred By: ER Confirmed By:KEMI DAI MD us Kemi Dai MD ECG ORDERABLES Final Result [facility] ECG documented in this encounter Visit Diagnoses Not on filedocumented in this encounter Active and Recently Administered Medications
--- OUTSIDE RECORDS SUMMARY | 2024-06-11 08:36 | XMS_ITS | Encounter Summary ---
Author Organization [facility] y[facility] Address [address] [place] [address] Care Team Providers Care Pharmacist Name Role Phone Unavailable Primary Care Provider Unavailabl e Reason for Visit * Reason Comments Nasal Congestion Sore Throat Encounter Details Date Type Department Care Team (Late st Contact Info) Description 03/12/2019 8:03 PM EDT - 03/12/2019 10:15 PM EDT Emergency [facility] EMERGENCY DEPARTMENT [address] [place] [phone] Dominik Rizo MD [address] [place] [address] Upper respiratory tract infection, unspecified type (Primary [...] Continue your nasal spray as directed. Take glbd-tsg-ejqxoxq Tylenol 500 mg every 6 hours for headache. Drink plenty of fluids to help stay hydrated and thin the mucus. Take qnhz-xvx-kpyohpf medication such as DayQuil or NyQuil as [...] sent through Care Everywhere. * Sore Throat (Armenian) * Viral Respiratory Infection (Armenian) documented in this encounter Medications at [...] Chronic constipation ??? Depression ??? Diabetes mellitus ([facility]) ??? Excessive thirst ??? H/O mammogram 2014 [...] ??? SECTION ??? INDUCED 2006 [facility] [...] 2145 Influenza B Ag, EIA: Negative [LA] 214 Strep A Ag: Negative [LA] 215 Discussed [...] For this patient encounter, I reviewed the CONTACT WORKER or PA documentation, treatment plan, and [...] Streptococcus Isolated KIRA 03/14/2019 10:33 AM EDT [facility] Swab Specimen from throat / Unknown Collection / Unknown 03/12/2019 9:11 PM EDT 03/12/2019 9:14 PM EDT Narrative [facility] - 03/14/2019 10:33 AM EDT Group A Strep incidence is low in adults. Positive culture for Beta hemolytic Streptococcus species can reflect colonization and not true infection. Please correlate clinically. Sierra MENDEZ-C MICROBIOLOGY - GENERAL ORDE RABLES Final Result [facility]
[address] [place] [address], * Rapid Strep A Screen - Swab, Throat (03/12/2019 9:11 PM EDT) Strep A Ag Negative Negative 03/12/2019 9:28 PM EDT [facility] Swab Specimen from throat / Unknown Collection / Unknown 03/12/2019 9:11 PM EDT 03/12/2019 9:14 PM EDT Sierra MENDEZ-C MICROBIOLOGY - GENERAL ORDE RABLES Final Result Performing Organization Address City/[facility]/ZIP Co de Phone Number [facility]
[address] [place] [address], [place] [phone] * Influenza Antigen, Rapid - Swab, Nasopharynx (03/12/2019 9:10 PM EDT) Influenza A Ag, EIA Negative Negative 03/12/2019 9:26 PM EDT [facility] Influenza B Ag, EIA Negative Negative 03/12/2019 9:26 PM EDT [facility] Swab Nasopharyngeal structure / Unknown Collection / Unknown 03/12/2019 9:10 PM EDT 03/12/2019 9:14 PM EDT Sierra MENDEZ-C MICROBIOLOGY - GENERAL ORDE RABLES Final Result Performing Organization Address City/[facility]/ZIP Co de Phone Number [facility]
[address] [place] [address], [place] [phone] documented in this encounter Visit Diagnoses Diagnosis [...] of 7-10, CPOT [id number] (Given - [facility] er: Ela Hansen RN) documented in this encounter
--- OUTSIDE RECORDS SUMMARY | 2024-06-11 08:36 | XMS_ITS | Encounter Summary ---
[facility] Organization [facility] Address [address] [place] [address] Care Team Providers Care Mortgage Loan Counselor Name Role Phone Unavailable Primary Care Provider Unavailabl e Reason for Referral * Hospital - Outpatient (Emergency) - Closed Specialty Diagnoses / Procedures Referred By Contac t Referred To Contact Radiology Diagnoses Left leg pain Procedures US Venous Doppler Lower Extremity Left (duplex) Fabiola Guzman MD [address] [place] [address] [place] [address] Phone: tel: fax: Referral ID Status Reason Start Date Expiration Date Visits Re quested Visits Authorized [id number] Closed 01/29/2019 01/29/2020 1 1 Reason for Visit * Hospital - Outpatient (Emergency) - Closed Specialty Diagnoses / Procedures Referred By Contac t Referred To Contact Radiology Diagnoses Left leg pain Procedures US Venous Doppler Lower Extremity Left (duplex) Fabiola Guzman MD [address] [place] [address] [place] [address] Phone: tel: fax: Referral ID Status Reason Start Date Expiration Date Visits Re quested Visits Authorized [id number] Closed 01/29/2019 01/29/2020 1 1 Encounter Details Date Type Department Care Team (Latest Contact Info) Description 01/29/2019 3:26 PM EDT - 01/29/2019 11:59 PM EDT Hospital Encounter [address] [phone] Fabiola Guzman MD [facility] [email or web address] [address] Left leg pain Discharge Disposition: Home or [...] Times a Day With Meals. 06/07/20 24 cefdinir (OMNICEF) 300 MG capsule Take 1 [...]
--- OUTSIDE RECORDS SUMMARY | 2024-06-11 08:36 | XMS_ITS | Encounter Summary ---
Author [facility] Address [address] [place] [address] Care Team Providers Care Diamond Driller Name Role Phone Unavailable Primary Care Provider Unavailabl e Reason for Visit * Reason Comments Chest Pain Hyperglycemia Encounter Details Date Type Department Care Team (Late st Contact Info) Description 01/04/2019 9:34 PM EDT - 01/05/2019 1:06 AM EDT Emergency [facility] EMERGENCY DEPARTMENT [address] [place] [phone] Jaquan Arenas, Chest pain, unspecified type [...] through Care Everywhere. * CHEST PAIN OBSERVATION (MALTESE) * Sinus Headache (Mauritian) documented in this encounter Medications at Time [...] SECTION 10/17/2012 ??? SECTION ??? INDUCED 2006 [facility] History reviewed. No pertinent family [...] For this patient encounter, I reviewed the TITLE INSURANCE SALES REPRESENTATIVE or PA documentation, treatment plan, and medical [...] - 0.034 ng/mL 01/05/2019 12:40 AM EDT [facility] Blood Venipuncture / Unknown 01/05/2019 12:11 AM EDT 01/05/2019 12:14 AM EDT Narrative [facility] - 01/05/2019 12:40 AM EDT Normal Patient Upper Reference Limit (URL) (99th Percentile)=0.03 ng/mL Non-AMI Illness Reference Limit=0.03-0.11 ng/mL AMI Confirmation=0.12 ng/mL and above us Rashard Moody PA-C LAB BLOOD ORDERABL ES Final Result [facility]
[address] [place] [phone], * (ABNORMAL) POC Glucose Once (01/05/2019 12:02 AM EDT) Glucose 238(H) 70 - 130 mg/dL 01/05/2019 12:05 AM EDT [facility] Comment:Serial Number: [id number] Blood 01/05/2019 12:0 2 AM EDT 01/05/2019 12:05 AM EDT us Jaquan Arenas DO POINT OF CARE TEST ORDERABLES F inal Result Performing Organization Address [facility] Co de Phone Number [facility]
[address] [place] [address], * (ABNORMAL) Urinalysis, Microscopic Only - Urine, Clean Catch (01/04/2019 10:12 PM EDT) RBC, UA 3-5(A) None Seen /HPF 01/04/2019 10:39 PM EDT [facility] WBC, UA None Seen None Seen /HPF 01/04/2019 10:39 PM EDT [facility] Bacteria, UA Trace(A) None Seen /HPF 01/04/2019 10:39 PM EDT [facility] Squamous Epithelial Cells, UA 3-6(A) None Seen, 0-2 /HPF 01/04/2019 10:39 PM EDT [facility] Hyaline Casts, UA None Seen None Seen /LPF 01/04/2019 10:39 PM EDT [facility] Methodology Manual Light Microscopy 01/04/2019 10:39 PM EDT [facility] Urine Urine specimen collection, clean catch / Unknown Collection / Unknown 01/04/2019 10:12 PM EDT 01/04/2019 10:17 PM EDT us Jaquan Arenas DO URINE ORDERABLES Final Result Performing Organization Address [facility]/ZIP Co de Phone Number [facility]
[address] [place] [address], [place] [phone] * Green Top (No Gel) (01/04/2019 10:12 PM EDT) Extra Tube Hold for add-ons. 01/04/2019 11:15 PM EDT [facility] Comment:Auto resulted. Blood Venipuncture / Unknown 01/04/2019 10:12 PM EDT 01/04/2019 10:18 PM EDT us Jaquan Arenas DO LAB BLOOD ORDER ONLY Final Resu lt Performing Organization Address [facility]/ZIP Co de Phone Number [facility]
[address] [place] [id number], [place] [phone] * Gold Top - SST (01/04/2019 10:12 PM EDT) Extra Tube Hold for add-ons. 01/04/2019 11:15 PM EDT [facility] Comment:Auto resulted. Blood Venipuncture / Unknown 01/04/2019 10:12 PM EDT 01/04/2019 10:17 PM EDT us Jaquan Arenas DO LAB BLOOD ORDER ONLY Final Resu lt Performing Organization Address City/[facility]/ZIP Co de Phone Number [facility]
[address] [place] [address], [place] [phone] * Lavender Top (01/04/2019 10:12 PM EDT) Extra Tube hold for add-on 01/04/2019 11:15 PM EDT [facility] Comment:Auto resulted Blood Venipuncture / Unknown 01/04/2019 10:12 PM EDT 01/04/2019 10:17 PM EDT us Jaquan Arenas DO LAB BLOOD ORDER ONLY Final Resu lt Performing Organization Address City/[facility]/ZIP Co de Phone Number [facility]
[address] [place] [address], [place] [phone] * Green Top (Gel) (01/04/2019 10:12 PM EDT) Extra Tube Hold for add-ons. 01/04/2019 11:15 PM EDT [facility] Comment:Auto resulted. Blood Venipuncture / Unknown 01/04/2019 10:12 PM EDT 01/04/2019 10:18 PM EDT us Jaquan Arenas DO LAB BLOOD ORDER ONLY Final Resu lt Performing Organization Address [facility]/ZIP Co de Phone Number [facility]
[address] [place] [address], [place] [phone] * Light Blue Top (01/04/2019 10:12 PM EDT) Extra Tube hold for add-on 01/04/2019 11:15 PM EDT [facility] Comment:Auto resulted Blood Venipuncture / Unknown 01/04/2019 10:12 PM EDT 01/04/2019 10:18 PM EDT us Jaquan Arenas DO LAB BLOOD ORDER ONLY Final Resu lt Performing Organization Address City/[facility]/ZIP Co de Phone Number [facility]
[address] [place] [address], [place] [phone] * (ABNORMAL) Urinalysis With Microscopic If Indicated (No Culture) - Urine, Clean Catch (01/04/2019 10:12 PM EDT) Color, UA Yellow Yellow, Straw 01/04/2019 10:39 PM EDT [facility] Appearance, UA Clear Clear 01/04/2019 10:39 PM EDT [facility] pH, UA 6.0 5.0 - 8.0 01/04/2019 10:39 PM EDT [facility] Specific Mant[place], UA 1.013 1.005 - 1.030 01/04/2019 10:39 PM EDT [facility] Glucose, UA >=1000 mg/dL (3+)(A) Negative 01/04/2019 10:39 PM EDT [facility] Ketones, UA Negative Negative 01/04/2019 10:39 PM EDT [facility] Bilirubin, UA Negative Negative 01/04/2019 10:39 PM EDT [facility] Blood, UA Trace(A) Negative 01/04/2019 10:39 PM EDT [facility] Protein, UA >=300 mg/dL (3+)(A) Negative 01/04/2019 10:39 PM EDT [facility] Leuk Esterase, UA Negative Negative 01/04/2019 10:39 PM EDT [facility] Nitrite, UA Negative Negative 01/04/2019 10:39 PM EDT [facility] Urobilinogen, UA 0.2 E.U./dL 0.2 - 1.0 E.U./dL 01/04/2019 10:39 PM EDT [facility] Urine Urine specimen collection, clean catch / Unknown Collection / Unknown 01/04/2019 10:12 PM EDT 01/04/2019 10:17 PM EDT us Jaquan Arenas DO URINE ORDERABLES Final Result Performing Organization Address City/[facility] Co de Phone Number [facility]
[address] [place] [address], * , Urine - Urine, Clean Catch (01/04/2019 10:12 PM EDT) HCG, Urine QL Negative Negative 01/04/2019 10:25 PM EDT [facility] Urine Urine specimen collection, clean catch / Unknown Collection / Unknown 01/04/2019 10:12 PM EDT 01/04/2019 10:17 PM EDT us Jaquan Arenas DO URINE ORDERABLES Final Result [facility]
[address] [place] [address], [place] [phone] * (ABNORMAL) CBC Auto Differential (01/04/2019 10:12 PM EDT) WBC 9.42 3.40 - 10.80 10*3/mm3 01/04/2019 10:21 PM EDT [facility] RBC 3.60(L) 3.77 - 5.28 10*6/mm3 01/04/2019 10:21 PM EDT [facility] Hemoglobin 10.2(L) 12.0 - 15.9 g/dL 01/04/2019 10:21 PM EDT [facility] Hematocrit 31.6(L) 34.0 - 46.6 % 01/04/2019 10:21 PM EDT [facility] MCV 87.8 79.0 - 97.0 fL 01/04/2019 10:21 PM EDT [facility] MCH 28.3 26.6 - 33.0 pg 01/04/2019 10:21 PM EDT [facility] MCHC 32.3 31.5 - 35.7 g/dL 01/04/2019 10:21 PM EDT [facility] RDW 12.8 12.3 - 15.4 % 01/04/2019 10:21 PM EDT [facility] RDW-SD 40.7 37.0 - 54.0 fl 01/04/2019 10:21 PM EDT [facility] MPV 12.7(H) 6.0 - 12.0 fL 01/04/2019 10:21 PM EDT [facility] Platelets 217 140 - 450 10*3/mm3 01/04/2019 10:21 PM EDT [facility] Neutrophil % 53.3 42.7 - 76.0 % 01/04/2019 10:21 PM EDT [facility] Lymphocyte % 34.3 19.6 - 45.3 % 01/04/2019 10:21 PM EDT [facility] Monocyte % 7.1 5.0 - 12.0 % 01/04/2019 10:21 PM EDT [facility] Eosinophil % 4.6 0.3 - 6.2 % 01/04/2019 10:21 PM EDT [facility] Basophil % 0.3 0.0 - 1.5 % 01/04/2019 10:21 PM EDT [facility] Immature Grans % 0.4 0.0 - 0.5 % 01/04/2019 10:21 PM EDT [facility] Neutrophils, Absolute 5.02 1.70 - 7.00 10*3/mm3 01/04/2019 10:21 PM EDT [facility] Lymphocytes, Absolute 3.23(H) 0.70 - 3.10 10*3/mm3 01/04/2019 10:21 PM EDT [facility] Monocytes, Absolute 0.67 0.10 - 0.90 10*3/mm3 01/04/2019 10:21 PM EDT [facility] Eosinophils, Absolute 0.43(H) 0.00 - 0.40 10*3/mm3 01/04/2019 10:21 PM EDT [facility] Basophils, Absolute 0.03 0.00 - 0.20 10*3/mm3 01/04/2019 10:21 PM EDT [facility] Immature Grans, Absolute 0.04 0.00 - 0.05 10*3/mm3 01/04/2019 10:21 PM EDT [facility] nRBC 0.0 0.0 - 0.2 /100 WBC 01/04/2019 10:21 PM EDT [facility] Blood Venipuncture / Unknown 01/04/2019 10:12 PM EDT 01/04/2019 10:17 PM EDT us Jaquan Arensa DO LAB BLOOD ORDERABLES Final Resu lt [facility]
[address] [place] [address], * Troponin (01/04/2019 10:12 PM EDT) [facility] Troponin I <0.012 0.000 - 0.034 ng/mL 01/04/2019 10:48 PM EDT [facility] Blood Venipuncture / Unknown 01/04/2019 10:12 PM EDT 01/04/2019 10:18 PM EDT Narrative [facility] - 01/04/2019 10:48 PM EDT Normal Patient Upper Reference Limit (URL) (99th Percentile)=0.03 ng/mL Non-AMI Illness Reference Limit=0.03-0.11 ng/mL AMI Confirmation=0.12 ng/mL and above us Jaquan Arenas DO LAB BLOOD ORDERABLES Final Resu lt [facility]
[address] [place] [address], * (ABNORMAL) Comprehensive Metabolic Panel (01/04/2019 10:12 PM EDT) Pathologist [facility] Glucose 320(H) 74 - 98 mg/dL 01/04/2019 10:48 PM EDT [facility] Comment:Glucose >180, Hemogl obin A1C recommended. BUN 42(H) 7 - 20 mg/dL 01/04/2019 10:48 PM EDT [facility] Creatinine 3.30(H) 0.60 - 1.30 mg/dL 01/04/2019 10:48 PM EDT [facility] Sodium 136(L) 137 - 145 mmol/L 01/04/2019 10:48 PM EDT [facility] Potassium 4.2 3.5 - 5.1 mmol/L 01/04/2019 10:48 PM EDT [facility] Chloride 102 98 - 107 mmol/L 01/04/2019 10:48 PM EDT [facility] CO2 22.0(L) 26.0 - 30.0 mmol/L 01/04/2019 10:48 PM EDT [facility] Calcium 8.1(L) 8.4 - 10.2 mg/dL 01/04/2019 10:48 PM EDT [facility] Total Protein 7.0 6.3 - 8.2 g/dL 01/04/2019 10:48 PM EDT [facility] Albumin 4.00 3.50 - 5.00 g/dL 01/04/2019 10:48 PM EDT [facility] ALT (SGPT) 23 13 - 69 U/L 01/04/2019 10:48 PM EDT [facility] AST (SGOT) 13(L) 15 - 46 U/L 01/04/2019 10:48 PM EDT [facility] Alkaline Phosphatase 71 38 - 126 U/L 01/04/2019 10:48 PM EDT [facility] Total Bilirubin 0.1(L) 0.2 - 1.3 mg/dL 01/04/2019 10:48 PM EDT [facility] eGFR Non Amer 17(L) >60 mL/min/1.7 3 01/04/2019 10:48 PM EDT [facility] Globulin 3.0 gm/dL 01/04/2019 10:48 PM EDT [facility] A/G Ratio 1.3 1.0 - 2.0 g/dL 01/04/2019 10:48 PM EDT [facility] BUN/Creatinine Ratio 12.7 7.1 - 23.5 01/04/2019 10:48 PM EDT [facility] Anion Gap 16.2 10.0 - 20.0 mmol/L 01/04/2019 10:48 PM EDT [facility] Blood Venipuncture / Unknown 01/04/2019 10:12 PM EDT 01/04/2019 10:18 PM EDT Narrative [facility] - 01/04/2019 10:48 PM EDT GFR Normal >60 Chronic Kidney Disease <60 Kidney Failure <15 us Jaquan Arenas DO LAB BLOOD ORDERABLES Final Resu lt [facility]
[address] [place] [id number], [place] [phone] * XR Chest 2 View (01/04/2019 9:55 [...] - 130 mg/dL 01/04/2019 9:45 PM EDT [facility] Comment:Serial Number: [id number] Blood 01/04/2019 9:40 PM EDT 01/04/2019 9:45 PM EDT us Jaquan Arenas DO POINT OF CARE TEST ORDERABLES F inal Result [facility]
[address] [place] [address], documented in this encounter Visit Diagnoses Diagnosis [...] Emma 01/04/19 at 2152, For 1 dose New Bag [...] dose 0105 (Not Given - Provider: Silvia Suarez RN - Reason: Loss of IV access) sodium chloride 0.9 % bolus 1,000 mL (COMPLETED) 1,000 mL, Intravenous, at 2,000 mL/hr, Administer over 0.5 Hours, Once, On Emma 01/04/19 at 2152, For 1 dose 2219 (New Bag - Provider: Silvia Mcmahan RN)2327 (Stopped - Provider: Silvia Mcmahan RN) sodium chloride 0.9 % bolus 1,000 mL (COMPLETED) 1,000 mL, Intravenous, at 2,000 mL/hr, Administer over 0.5 Hours, Once, On Emma 01/04/19 at 2214, For 1 dose 2326 (New Bag - Provider: Silvia Mcmahan RN) 0107 (Stopped - Provider: Silvia Suarez, HERNÁN) documented in this encounter
--- OUTSIDE RECORDS SUMMARY | 2024-06-11 08:36 | XMS_ITS | Encounter Summary ---
Author Organization [facility] Address [address] [place] [address] Care Team Providers Care Textile Cutting Machine Operator Name Role Phone Unavailable Primary Care Provider Unavailabl e Reason for Referral * (Emergency) - Closed Specialty Diagnoses / Procedures Referred By Contac t Referred To Contact Radiology Diagnoses Low back pain, unspecified back pain laterality, unspecified chronicity, with sciatica presence unspecified Procedures XR Spine Lumbar 4+ View XR Spine Lumbar 2 or 3 View Fabiola Guzman MD [address] [place] [address] [place] [address] Phone: tel: fax: Referral ID Status Reason Start Date Expiration Date Visits Re quested Visits Authorized [id number] Closed 01/29/2019 01/29/2020 1 1 Reason for Visit * (Emergency) - Closed Specialty Diagnoses / Procedures Referred By Contac t Referred To Contact Radiology Diagnoses Low back pain, unspecified back pain laterality, unspecified chronicity, with sciatica presence unspecified Procedures XR Spine Lumbar 4+ View XR Spine Lumbar 2 or 3 View Fabiola Guzman MD [address] [place] [address] [place] [address] Phone: tel: fax: Referral ID Status Reason Start Date Expiration Date Visits Re quested Visits Authorized [id number] Closed 01/29/2019 01/29/2020 1 1 Encounter Details Date Type Department Care Team (Latest Contact Info) Description 01/29/2019 3:33 PM EDT - 01/29/2019 11:59 PM EDT Hospital Encounter [facility] X[facility] [address] [place] [address] Low back pain, unspecified back [...] (NEURONTIN) 300 MG capsule BID 0 12/23/2015 08/01/20 23 HYDROcodone-acetami nophen (NORCO) 5-325 MG per [...]
--- OUTSIDE RECORDS SUMMARY | 2024-06-11 08:36 | XMS_ITS | Encounter Summary ---
[facility] Address [address] [place] [address] Care Team Providers Care Trade Manager Name Role Phone Unavailable Primary Care Provider Unavailabl e Encounter Details Date Type Department Care Team (Late st Contact Info) Description 03/05/2019 4:20 PM EDT Lab [facility] [address] [place] [address] Secondary hyperparathyroidism; Chronic kidney disease, [...] Seen, 0-2 /HPF 03/05/2019 11:07 PM EDT [facility] WBC, UA 0-2 None Seen, 0-2 /HPF 03/05/2019 11:07 PM EDT [facility] Bacteria, UA 1+(A) None Seen /HPF 03/05/2019 11:07 PM EDT [facility] Squamous Epithelial Cells, UA 0-2 None Seen, 0-2 /HPF 03/05/2019 11:07 PM EDT [facility] Hyaline Casts, UA 0-2 None Seen /LPF 03/05/2019 11:07 PM EDT [facility] Methodology Automated Microscopy 03/05/2019 11:07 PM EDT [facility] Urine Urine specimen collection, clean catch / Unknown Collection / Unknown 03/05/2019 4:49 PM EDT 03/05/2019 6:39 PM EDT us Maria A Soria FAIRING MAN URINE ORDERABLES Final Resu lt [facility]
[address] [place] [address], * (ABNORMAL) Urinalysis without microscopic (no culture) - Urine, Clean Catch (03/05/2019 4:49 PM EDT) Color, UA Yellow Yellow, Straw 03/05/2019 10:57 PM EDT [facility] Appearance, UA Clear Clear 03/05/2019 10:57 PM EDT [facility] pH, UA 7.5 5.0 - 8.0 03/05/2019 10:57 PM EDT [facility] Specific [place], UA 1.011 1.005 - 1.030 03/05/2019 10:57 PM EDT [facility] Glucose, UA 100 mg/dL (Trace)(A) Negative 03/05/2019 10:57 PM EDT [facility] Ketones, UA Negative Negative 03/05/2019 10:57 PM EDT [facility] Bilirubin, UA Negative Negative 03/05/2019 10:57 PM EDT [facility] Blood, UA Negative Negative 03/05/2019 10:57 PM EDT [facility] Protein, UA >=300 mg/dL (3+)(A) Negative 03/05/2019 10:57 PM EDT [facility] Leuk Esterase, UA Negative Negative 03/05/2019 10:57 PM EDT [facility] Nitrite, UA Negative Negative 03/05/2019 10:57 PM EDT [facility] Urobilinogen, UA 0.2 E.U./dL 0.2 - 1.0 E.U./dL 03/05/2019 10:57 PM EDT [facility] Urine Urine specimen collection, clean catch / Unknown Collection / Unknown 03/05/2019 4:49 PM EDT 03/05/2019 6:39 PM EDT us Maria A Soria FAIRING MAN URINE ORDERABLES Final Resu lt [facility]
[address] [place] [address], * Urine Culture - Urine, Urine, Clean Catch (03/05/2019 4:49 PM EDT) Urine Culture No growth KIRA 03/06/2019 7:02 PM EDT [facility] Urine Urine specimen collection, clean catch / Unknown Collection / Unknown 03/05/2019 4:49 PM EDT 03/05/2019 6:39 PM EDT Maria A Soria APRN MICROBIOLOGY - GENERAL ORDE RABJESSICA Final Result Performing Organization Address [facility]/ZIP Co de Phone Number [facility]
[address] [place] [address], * (ABNORMAL) Vitamin D 25 Hydroxy (03/05/2019 4:49 PM EDT) Pathologist [facility] 25 Hydroxy, Vitamin D 11.5(L) 30.0 - 100.0 ng/ml 03/05/2019 10:48 PM EDT [facility] Blood Venipuncture / Unknown 03/05/2019 4:49 PM EDT 03/05/2019 6:40 PM EDT Narrative [facility] - 03/05/2019 10:48 PM EDT Reference Range for Total Vitamin D 25(OH) Deficiency <20.0 ng/mL Insufficiency 21-29 ng/mL Sufficiency 30-100 ng/mL Toxicity >100 ng/ml Maria A Soria APRN LAB BLOOD ORDERABLES Final Result Performing Organization Address City/[facility]/ZIP Co de Phone Number [facility]
[address] [place] [address], * (ABNORMAL) Renal Function Panel (03/05/2019 4:49 PM EDT) Glucose 191(H) 65 - 99 mg/dL 03/05/2019 10:31 PM EDT [facility] BUN 35(H) 6 - 20 mg/dL 03/05/2019 10:31 PM EDT [facility] Creatinine 3.73(H) 0.57 - 1.00 mg/dL 03/05/2019 10:31 PM [facility] Sodium 138 136 - 145 mmol/L 03/05/2019 10:31 PM T [facility] Potassium 4.6 3.5 - 5.2 mmol/L 03/05/2019 10:31 PM [facility] Chloride 98 98 - 107 mmol/L 03/05/2019 10:31 PM [facility] CO2 24.2 22.0 - 29.0 mmol/L 03/05/2019 10:31 PM [facility] Calcium 8.9 8.6 - 10.5 mg/dL 03/05/2019 10:31 PM [facility] Albumin 4.10 3.50 - 5.20 g/dL 03/05/2019 10:31 PM [facility] Phosphorus 4.4 2.5 - 4.5 mg/dL 03/05/2019 10:31 PM [facility] Anion Gap 15.8(H) 5.0 - 15.0 mmol/L 03/05/2019 10:31 PM [facility] BUN/Creatinine Ratio 9.4 7.0 - 25.0 03/05/2019 10:31 PM T [facility] eGFR Non Amer 14(L) >60 mL/min/1.7 3 03/05/2019 10:31 PM [facility] Comment:<15 Indicative of ki dney failure. eGFR Amer >60 mL/min/1.7 3 03/05/2019 10:31 PM [facility] Comment:<15 Indicative of ki dney failure. Blood Venipuncture / Unknown 03/05/2019 4:49 PM EDT 03/05/2019 6:40 PM EDT [facility] - 03/05/2019 10:31 PM EDT GFR Normal >60 Chronic Kidney Disease <60 Kidney Failure <15 Maria A Soria FAIRING MAN LAB BLOOD ORDERABLES Final Result Performing Organization Address City/[facility] Co de Phone Number [facility]
[address] [place] [address], * (ABNORMAL) PTH, Intact (03/05/2019 4:49 PM EDT) PTH, Intact 257.0(H) 15.0 - 65.0 pg/mL 03/05/2019 10:54 PM EDT [facility] Blood Venipuncture / Unknown 03/05/2019 4:49 PM EDT 03/05/2019 6:40 PM EDT Maria A Soria APRN LAB BLOOD ORDERABLES Final Result Performing Organization Address [facility] de Phone Number [facility]
[address] [place] [address], documented in this encounter Visit Diagnoses Diagnosis Secondary hyperparathyroidism Secondary hyperparathyroidism (of renal origin) Chronic kidney disease, stage IV (severe) Chronic kidney disease, Stage IV (severe) Urinary tract infection without hematuria, site unspecified documented in this encounter
--- OUTSIDE RECORDS SUMMARY | 2024-06-11 08:36 | XMS_ITS | Encounter Summary ---
[facility] Address [address] [place] [id number] Care Team Providers Care International Marketing Specialist Name Role Phone Unavailable Primary Care Provider Unavailabl e Reason for Visit * Reason Comments Rash Diarrhea Encounter Details Date Type Department Care Team (Late st Contact Info) Description 12/24/2018 10:45 PM EDT - 12/25/2018 1:07 AM EDT Emergency [facility] [address] [place] [address] Phill Gama, DO [address] [place], [place] [id number] Urinary tract infection without hematuria, site unspecified [...] closely. Contact your primary care provider and/or cash surrender calculator tomorrow to discuss your blood glucose. Recheck in 1 to 2 days with your primary care provider. Increase your fluid intake. Return to the emergency department immediately for any change or worsening of symptoms. * Attachments The following attachments cannot be sent through Care Everywhere. * Chronic Kidney Disease Adult (Kazakh) * Insulin Treatment for Diabetes Mellitus (Kazakh) documented in this encounter Medications at [...] SECTION 10/17/2012 ??? SECTION ??? INDUCED 2006 [facility] History reviewed. No pertinent family history. Social [...] Course ED Course as of Dec 25 100 Sun Dec 24, 2018 2358 Glucose: (!) [...] pH, UA 7.0 5.0 - 8.0 Specific [place], UA 1.011 1.005 - 1.030 Glucose, UA [...] mL (1,000 mL Intravenous New Bag 12/24/18 7751) cefTRIAXone (ROCEPHIN) IVPB 1 g/50ml dextrose (premix) (0 g Intravenous Stopped 12/25/18 0038) ECG/EMG Results (last 24 hours) No results found for the last 24 hours. 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 Phill Gama DO 12/25/2018 2:22 AM documented in this encounter [...] - 10.80 10*3/mm3 12/24/2018 11:34 PM EDT [facility] RBC 3.57(L) 3.77 - 5.28 10*6/mm3 12/24/2018 11:34 PM EDT [facility] Hemoglobin 10.6(L) 12.0 - 15.9 g/dL 12/24/2018 11:34 PM EDT [facility] Hematocrit 31.7(L) 34.0 - 46.6 % 12/24/2018 11:34 PM EDT [facility] MCV 88.8 79.0 - 97.0 fL 12/24/2018 11:34 PM EDT [facility] MCH 29.7 26.6 - 33.0 pg 12/24/2018 11:34 PM EDT [facility] MCHC 33.4 31.5 - 35.7 g/dL 12/24/2018 11:34 PM EDT [facility] RDW 12.5 12.3 - 15.4 % 12/24/2018 11:34 PM EDT [facility] RDW-SD 40.8 37.0 - 54.0 fl 12/24/2018 11:34 PM EDT [facility] MPV 13.1(H) 6.0 - 12.0 fL 12/24/2018 11:34 PM EDT [facility] Platelets 230 140 - 450 10*3/mm3 12/24/2018 11:34 PM EDT [facility] Neutrophil % 55.2 42.7 - 76.0 % 12/24/2018 11:34 PM EDT [facility] Lymphocyte % 34.8 19.6 - 45.3 % 12/24/2018 11:34 PM EDT [facility] Monocyte % 6.0 5.0 - 12.0 % 12/24/2018 11:34 PM EDT [facility] Eosinophil % 3.2 0.3 - 6.2 % 12/24/2018 11:34 PM EDT [facility] Basophil % 0.5 0.0 - 1.5 % 12/24/2018 11:34 PM EDT [facility] Immature Grans % 0.3 0.0 - 0.5 % 12/24/2018 11:34 PM EDT [facility] Neutrophils, Absolute 5.06 1.70 - 7.00 10*3/mm3 12/24/2018 11:34 PM EDT [facility] Lymphocytes, Absolute 3.19(H) 0.70 - 3.10 10*3/mm3 12/24/2018 11:34 PM EDT [facility] Monocytes, Absolute 0.55 0.10 - 0.90 10*3/mm3 12/24/2018 11:34 PM EDT [facility] Eosinophils, Absolute 0.29 0.00 - 0.40 10*3/mm3 12/24/2018 11:34 PM EDT [facility] Basophils, Absolute 0.05 0.00 - 0.20 10*3/mm3 12/24/2018 11:34 PM EDT [facility] Immature Grans, Absolute 0.03 0.00 - 0.05 10*3/mm3 12/24/2018 11:34 PM EDT [facility] nRBC 0.0 0.0 - 0.2 /100 WBC 12/24/2018 11:34 PM EDT [facility] Blood Venipuncture / Unknown 12/24/2018 11:27 PM EDT 12/24/2018 11:31 PM EDT [employer] LAB BLOOD ORDERABLES Fin al Result [facility]
[address] [place] [address], * Lactic Acid, Plasma (12/24/2018 11:27 PM EDT) [facility] Lactate 1.3 0.5 - 2.0 mmol/L 12/24/2018 11:45 PM EDT [facility] Blood Venipuncture / Unknown 12/24/2018 11:27 PM EDT 12/24/2018 11:31 PM EDT [employer] LAB BLOOD ORDERABLES Fin al Result [facility]
[address] [place] [address], * (ABNORMAL) Blood Gas, Venous (12/24/2018 11:26 PM EDT) [facility] Site OTHER 12/24/2018 11:26 PM EDT [facility] THERAPY pH, Venous 7.376 7.320 - 7.420 pH Units 12/24/2018 11:26 PM EDT [facility] THERAPY pCO2, Venous 44.8 40.0 - 50.0 mm Hg 12/24/2018 11:26 PM EDT [facility] THERAPY pO2, Venous 23.3(L) 30.0 - 50.0 mm Hg 12/24/2018 11:26 PM EDT [facility]ER[facility] Comment:84 Value below refer ence range HCO3, Venous 26.3 22.0 - 28.0 mmol/L 12/24/2018 11:26 PM EDT [facility] THERAPY Base Excess, Venous 0.8 0.0 - 2.0 mmol/L 12/24/2018 11:26 PM EDT [facility] THERAPY O2 Saturation, Venous 38.9(L) 45.0 - 75.0 % 12/24/2018 11:26 PM EDT [facility] THERAPY Comment:84 Value below refer ence range Barometric Pressure for Blood Gas 733 mmHg 12/24/2018 11:26 PM EDT [facility] THERAPY Modality Room Air 12/24/2018 11:26 PM EDT [facility] THERAPY FIO2 21 % 12/24/2018 11:26 PM EDT [facility] Ventilator Mode NA 9 11:26 PM EDT [facility] THERAPY Comment:Meter: [id number] Analytical Sciences Director: [id number] Venous Blood 12/24/2018 11:2 6 PM EDT 12/24/2018 11:26 PM EDT us Phill Gama DO LAB BLOOD ORDERABLES Final Res ult [facility]
[address] [place], [place] [address] * (ABNORMAL) Comprehensive Metabolic Panel (12/24/2018 11:26 PM EDT) [facility] Signature Glucose 311(H) 74 - 98 mg/dL 12/24/2018 11:46 PM EDT [facility] Comment:Glucose >180, Hemogl obin A1C recommended. BUN 45(H) 7 - 20 mg/dL 12/24/2018 11:46 PM [facility] Creatinine 3.30(H) 0.60 - 1.30 mg/dL 12/24/2018 11:46 PM [facility] Sodium 137 137 - 145 mmol/L 12/24/2018 11:46 PM T [facility] Potassium 5.0 3.5 - 5.1 mmol/L 12/24/2018 11:46 PM [facility] Chloride 101 98 - 107 mmol/L 12/24/2018 11:46 PM [facility] CO2 25.0(L) 26.0 - 30.0 mmol/L 12/24/2018 11:46 PM [facility] Calcium 8.1(L) 8.4 - 10.2 mg/dL 12/24/2018 11:46 PM [facility] Total Protein 6.7 6.3 - 8.2 g/dL 12/24/2018 11:46 PM [facility] Albumin 3.80 3.50 - 5.00 g/dL 12/24/2018 11:46 PM [facility] ALT (SGPT) 24 13 - 69 U/L 12/24/2018 11:46 PM [facility] AST (SGOT) 14(L) 15 - 46 U/L 12/24/2018 11:46 PM [facility] Alkaline Phosphatase 77 38 - 126 U/L 12/24/2018 11:46 PM [facility] Total Bilirubin 0.3 0.2 - 1.3 mg/dL 12/24/2018 11:46 PM [facility] eGFR Non Amer 17(L) >60 mL/min/1.7 3 12/24/2018 11:46 PM [facility] Globulin 2.9 gm/dL 12/24/2018 11:46 PM [facility] A/G Ratio 1.3 1.0 - 2.0 g/dL 12/24/2018 11:46 PM EDT [facility] BUN/Creatinine Ratio 13.6 7.1 - 23.5 12/24/2018 11:46 PM EDT [facility] Anion Gap 16.0 10.0 - 20.0 mmol/L 12/24/2018 11:46 PM EDT [facility] Blood Venipuncture / Unknown 12/24/2018 11:26 PM EDT 12/24/2018 11:31 PM EDT Narrative [facility] - 12/24/2018 11:46 PM EDT GFR Normal >60 Chronic Kidney Disease <60 Kidney Failure <15 Tiago Dinh PA-C LAB BLOOD ORDERABLES Fin al Result Performing Organization Address City/[facility]/ZIP Co de Phone Number [facility]
[address] [place] [address], * Urine Culture - Urine, Urine, Clean Catch (12/24/2018 10:55 PM EDT) Urine Culture No growth KIRA 12/26/2018 5:43 AM EDT [facility] Urine Urine specimen collection, clean catch / Unknown Collection / Unknown 12/24/2018 10:55 PM EDT 12/24/2018 10:57 PM EDT Tiago Dinh PA-C MICROBIOLOGY - GENERAL O RDERABLES Final Result [facility]
[address] [place] [address], [place] [phone] * (ABNORMAL) Urinalysis, Microscopic Only - Urine, Clean Catch (12/24/2018 10:55 PM EDT) RBC, UA None Seen None Seen /HPF 12/24/2018 11:19 PM EDT [facility] WBC, UA 0-2(A) None Seen /HPF 12/24/2018 11:19 PM EDT [facility] Bacteria, UA Trace(A) None Seen /HPF 12/24/2018 11:19 PM EDT [facility] Squamous Epithelial Cells, UA 0-2 None Seen, 0-2 /HPF 12/24/2018 11:19 PM EDT [facility] Hyaline Casts, UA None Seen None Seen /LPF 12/24/2018 11:19 PM EDT [facility] Methodology Manual Light Microscopy 12/24/2018 11:19 PM EDT [facility] Urine Urine specimen collection, clean catch / Unknown Collection / Unknown 12/24/2018 10:55 PM EDT 12/24/2018 10:57 PM EDT Tiago Dinh PA-C URINE ORDERABLES Final R esult [facility]
[address] [place] [address], * (ABNORMAL) Urinalysis With Culture If Indicated - Urine, Clean Catch (12/24/2018 10:55 PM EDT) Color, UA Dark Yellow(A) Yellow, Straw 12/24/2018 11:00 PM [facility] Appearance, UA Clear Clear 12/24/2018 11:00 PM [facility] pH, UA 7.0 5.0 - 8.0 12/24/2018 11:00 PM EDT [facility] Specific [place], UA 1.011 1.005 - 1.030 12/24/2018 11:00 PM EDT [facility] Glucose, UA 250 mg/dL (1+)(A) Negative 12/24/2018 11:00 PM EDT [facility] Ketones, UA Negative Negative 12/24/2018 11:00 PM EDT [facility] Bilirubin, UA Negative Negative 12/24/2018 11:00 PM EDT [facility] Blood, UA Negative Negative 12/24/2018 11:00 PM EDT [facility] Protein, UA 100 mg/dL (2+)(A) Negative 12/24/2018 11:00 PM EDT [facility] Leuk Esterase, UA Negative Negative 12/24/2018 11:00 PM EDT [facility] Nitrite, UA Positive(A) Negative 12/24/2018 11:00 PM EDT [facility] Urobilinogen, UA 1.0 E.U./dL 0.2 - 1.0 E.U./dL 12/24/2018 11:00 PM EDT [facility] Urine Urine specimen collection, clean catch / Unknown Collection / Unknown 12/24/2018 10:55 PM EDT 12/24/2018 10:57 PM EDT Tiago Dinh PA-C URINE ORDERABLES Final R esult [facility]
[address] [place] [address], documented in this encounter Visit Diagnoses Diagnosis [...] mL/hr, Administer over 0.5 Hours, Once, On Tue12/24/18 at 2305, For 1 dose New Bag [...] dose 2327 (New Bag - Provider: Meg Torres RN) 0102 (Stopped - Provider: Meg Torres, HERNÁN) [...]
--- OUTSIDE RECORDS SUMMARY | 2024-06-11 08:36 | XMS_ITS | Encounter Summary ---
[facility] Address [address] [place] [address] Care Team Providers Care Applications Engineering Manager Name Role Phone Unavailable Primary Care Provider Unavailabl e Reason for Visit * (Emergency) - Closed Specialty Diagnoses / Procedures Referred By Xochitl t Referred To Contact Radiology Diagnoses Left leg pain Procedures XR Tibia Fibula 2 View Left Thomas, Fabiola Villafuerte MD [address] [place] [id number] Phone: tel: fax: Referral ID Status Reason Start Date Expiration Date Visits Re quested Visits Authorized [id number] Closed 01/29/2019 01/29/2020 1 1 Encounter Details Date Type Department Care Team (Latest Contact Info) Description 01/29/2019 3:33 PM EDT - 01/29/2019 11:59 PM EDT Hospital Encounter [facility] XRAY [address] [place] [address] Discharge Disposition: Home or Self [...]
--- OUTSIDE RECORDS SUMMARY | 2024-06-11 08:36 | XMS_ITS | Encounter Summary ---
Author Organization [facility] ystem Address [address] [place] [id number] Care Team Providers Care Bufferer Name Role Phone Unavailable Primary Care Provider Unavailabl e Reason for Visit * Reason Comments Headache Encounter Details Date Type Department Care Team (Late st Contact Info) Description 01/02/2019 9:25 PM EDT - 01/02/2019 10:49 PM EDT Emergency [facility] [address] [place] [phone] Mickey Cerda MD [address] [place], [place] [id number] Headache, unspecified headache type (Primary Dx); Chills [...] Care Everywhere. * General Headache Without Cause [id number] (Mauritian) documented in this encounter Medications at [...] SECTION 10/17/2012 ??? SECTION ??? INDUCED 2006 [facility] History reviewed. No pertinent family [...] /HPF 01/02/2019 10:12 PM EDT [facility] WBC, UA None Seen None Seen /HPF 01/02/2019 10:12 PM EDT [facility] Bacteria, UA Trace(A) None Seen /HPF 01/02/2019 10:12 PM EDT [facility] Squamous Epithelial Cells, UA 3-6(A) None Seen, 0-2 /HPF 01/02/2019 10:12 PM EDT [facility] Hyaline Casts, UA None Seen None Seen /LPF 01/02/2019 10:12 PM EDT [facility] Mucus, UA Trace None Seen, Trace /HPF 01/02/2019 10:12 PM EDT [facility] Methodology Manual Light Microscopy 01/02/2019 10:12 PM EDT [facility] Urine Urine specimen collection, clean catch / Unknown Collection / Unknown 01/02/2019 9:51 PM EDT 01/02/2019 9:58 PM EDT Mickey Cerda MD URINE ORDERABLES Final Resu lt [facility]
[address] [place] [address], * (ABNORMAL) Urinalysis With Culture If Indicated - Urine, Clean Catch (01/02/2019 9:51 PM EDT) Color, UA Yellow Yellow, Straw 01/02/2019 10:12 PM EDT [facility] Appearance, UA Clear Clear 01/02/2019 10:12 PM EDT [facility] pH, UA 6.5 5.0 - 8.0 01/02/2019 10:12 PM EDT [facility] Specific [place], UA 1.013 1.005 - 1.030 01/02/2019 10:12 PM EDT [facility] Glucose, UA 100 mg/dL (Trace)(A) Negative 01/02/2019 10:12 PM EDT [facility] Ketones, UA Negative Negative 01/02/2019 10:12 PM EDT [facility] Bilirubin, UA Negative Negative 01/02/2019 10:12 PM EDT [facility] Blood, UA Trace(A) Negative 01/02/2019 10:12 PM EDT [facility] Protein, UA >=300 mg/dL (3+)(A) Negative 01/02/2019 10:12 PM EDT [facility] Leuk Esterase, UA Negative Negative 01/02/2019 10:12 PM EDT [facility] Nitrite, UA Negative Negative 01/02/2019 10:12 PM EDT [facility] Urobilinogen, UA 0.2 E.U./dL 0.2 - 1.0 E.U./dL 01/02/2019 10:12 PM EDT [facility] Urine Urine specimen collection, clean catch / Unknown Collection / Unknown 01/02/2019 9:51 PM EDT 01/02/2019 9:58 PM EDT us Mickey Cerda MD URINE ORDERABLES Final Resu lt [facility]
[address] [place] [id number], * (ABNORMAL) CBC Auto Differential (01/02/2019 9:50 PM EDT) WBC 10.29 3.40 - 10.80 10*3/mm3 01/02/2019 10:01 PM EDT [facility] RBC 3.93 3.77 - 5.28 10*6/mm3 [facility] Hemoglobin 11.2(L) 12.0 - 15.9 g/dL [facility]/02/2019 [facility] Hematocrit 34.6 34.0 - 46.6 % 01/02/2019 10:[facility] MCV 88.0 79.0 - 97.0 fL 01/02/2019 10:01 PM EDT [facility] MCH 28.5 26.6 - 33.0 pg 01/02/2019 10:01 PM EDT [facility] MCHC 32.4 31.5 - 35.7 g/dL 01/02/2019 10:01 PM EDT [facility] RDW 13.0 12.3 - 15.4 % 01/02/2019 10[facility] RDW-SD 42.2 37.0 - 54.0 fl 01/02/2019 10:01 PM [facility] MPV 12.7(H) 6.0 - 12.0 fL 01/02/2019 10:01 PM [facility] Platelets 256 140 - 450 10*3/mm3 01/02/2019 10:01 PM [facility] Neutrophil % 53.5 42.7 - 76.0 % 01/02/2019 10:01 PM [facility] Lymphocyte % 36.2 19.6 - 45.3 % 01/02/2019 10:01 PM [facility] Monocyte % 5.5 5.0 - 12.0 % 01/02/2019 10:01 PM [facility] Eosinophil % 4.2 0.3 - 6.2 % 01/02/2019 10:01 PM [facility] Basophil % 0.3 0.0 - 1.5 % 01/02/2019 10:01 PM [facility] Immature Grans % 0.3 0.0 - 0.5 % 01/02/2019 10:01 PM [facility] Neutrophils, Absolute 5.51 1.70 - 7.00 10*3/mm3 01/02/2019 10:01 PM [facility] Lymphocytes, Absolute 3.72(H) 0.70 - 3.10 10*3/mm3 01/02/2019 10:01 PM [facility] Monocytes, Absolute 0.57 0.10 - 0.90 10*3/mm3 01/02/2019 10:01 PM [facility] Eosinophils, Absolute 0.43(H) 0.00 - 0.40 10*3/mm3 01/02/2019 10:01 PM [facility] Basophils, Absolute 0.03 0.00 - 0.20 10*3/mm3 01/02/2019 10:01 PM [facility] Immature Grans, Absolute 0.03 0.00 - 0.05 10*3/mm3 01/02/2019 10:01 PM [facility] nRBC 0.0 0.0 - 0.2 /100 WBC 01/02/2019 10:01 PM EDT [facility] Blood Venipuncture / Unknown 01/02/2019 9:50 PM EDT 01/02/2019 9:58 PM EDT Mickey Cerda MD LAB BLOOD ORDERABLES Final Result [facility]
[address] [place] [address], * (ABNORMAL) Comprehensive Metabolic Panel (01/02/2019 9:50 PM EDT) Glucose 216(H) 74 - 98 mg/dL 01/02/2019 10:20 PM EDT [facility] Comment:Glucose >180, Hemogl obin A1C recommended. BUN 44(H) 7 - 20 mg/dL 01/02/2019 10:20 PM EDT [facility] Creatinine 3.60(H) 0.60 - 1.30 mg/dL 01/02/2019 10:20 PM EDT [facility] Sodium 137 137 - 145 mmol/L 01/02/2019 10:20 PM EDT [facility] Potassium 4.2 3.5 - 5.1 mmol/L 01/02/2019 10:20 PM EDT [facility] Chloride 101 98 - 107 mmol/L 01/02/2019 10:20 PM EDT [facility] CO2 24.0(L) 26.0 - 30.0 mmol/L 01/02/2019 10:20 PM EDT [facility] Calcium 8.9 8.4 - 10.2 mg/dL 01/02/2019 10:20 PM EDT [facility] Total Protein 7.5 6.3 - 8.2 g/dL 01/02/2019 10:20 PM EDT [facility] Albumin 4.30 3.50 - 5.00 g/dL 01/02/2019 10:20 PM EDT [facility] ALT (SGPT) 24 13 - 69 U/L 01/02/2019 10:20 PM EDT [facility] AST (SGOT) 15 15 - 46 U/L 01/02/2019 10:20 PM EDT [facility] Alkaline Phosphatase 71 38 - 126 U/L 01/02/2019 10:20 PM EDT [facility] Total Bilirubin 0.2 0.2 - 1.3 mg/dL 01/02/2019 10:20 PM EDT [facility] eGFR Non Amer 15(L) >60 mL/min/1.7 3 01/02/2019 10:20 PM EDT [facility] Globulin 3.2 gm/dL 01/02/2019 10:20 PM EDT [facility] A/G Ratio 1.3 1.0 - 2.0 g/dL 01/02/2019 10:20 PM EDT [facility] BUN/Creatinine Ratio 12.2 7.1 - 23.5 01/02/2019 10:20 PM EDT [facility] Anion Gap 16.2 10.0 - 20.0 mmol/L 01/02/2019 10:20 PM EDT [facility] Blood Venipuncture / Unknown 01/02/2019 9:50 PM EDT 01/02/2019 9:58 PM EDT Narrative [facility] - 01/02/2019 10:20 PM EDT GFR Normal >60 Chronic Kidney Disease <60 Kidney Failure <15 Mickey Cerda MD LAB BLOOD ORDERABLES Final Result [facility]
[address] [place] [address], documented in this encounter Visit Diagnoses Diagnosis [...] Given 01/02/2019 9:53 PM EDT 650 mg ukkopegzki-myzzqoisnyevt-smt feine (FIORICET, ESGIC) 50-325-40 MG per tablet 1 tablet 1 tablet, Oral, Once, On Tue01/02/19 at 2242, For 1 dose, Do not exceed 4g of acetaminophen in a 24 hour period. Maximum 6 doses per 24 hours. Given 01/02/2019 10:48 PM EDT 1 tablet ondansetron (ZOFRAN) injection 4 mg 4 mg, Intravenous, Once, On Tue01/02/19 at 214, For 1 dose Given 01/02/2019 9:53 PM EDT 4 mg sodium chloride 0.9 % bolus 500 mL 500 mL, Intravenous, at 1,000 mL/hr, Administer over 0.5 Hours, Once, On Tue01/02/19 at 2142, For 1 dose New Bag 01/02/2019 9:53 [...] (Given - Provid er: Sarah Shaffer RN) igaabmzsbd-doiteydjnjbgc-wceknrxo (FIORICET, ESGIC) 50-325-40 MG per tablet 1 [...] over 0.5 Hours, Once, On Tue01/02/19 at 214, For 1 dose 2152 (New Bag - Prov ider: Sarah Shaffer RN)[id number] (Stopped - Provider: Sarah Shaffer RN) PRN [...]
--- OUTSIDE RECORDS SUMMARY | 2024-06-11 08:36 | XMS_ITS | Encounter Summary ---
[facility] Address [address] [place] [address] Care Team Providers Care Account Liaison Hospice Name Role Phone Unavailable Primary Care Provider Unavailabl e Encounter Details Date Type Department Care Team (Late st Contact Info) Description 01/03/2019 11:45 AM EDT Lab [facility] [address] [place] [address] Diabetes mellitus without complication Social [...] - 4.680 mIU/mL 01/03/2019 2:07 PM EDT [facility] Blood Venipuncture / Unknown 01/03/2019 11:57 AM EDT 01/03/2019 12:53 PM EDT Julisa Bandalins PRINTING AGENT LAB BLOOD ORDERABLES Fin al Result Performing Organization Address [facility]/ZIP Co de Phone Number [facility]
[address] [place] [phone], * (ABNORMAL) Lipid Panel (01/03/2019 11:57 AM EDT) Total Cholesterol 151 0 - 199 mg/dL 01/03/2019 1:20 PM EDT [facility] Triglycerides 346(H) <150 mg/dL 01/03/2019 1:20 PM EDT [facility] HDL Cholesterol 31(L) 40 - 60 mg/dL 01/03/2019 1:20 PM EDT [facility] LDL Cholesterol 51 0 - 99 mg/dL 01/03/2019 1:20 PM EDT [facility] VLDL Cholesterol 69.2 mg/dL 01/04/20 1:20 PM EDT [facility] LDL/HDL Ratio 1.64 01/03/2019 1:20 PM EDT [facility] Blood Venipuncture / Unknown 01/03/2019 11:57 AM EDT 01/03/2019 12:53 PM EDT Narrative [facility] - 01/03/2019 1:20 PM EDT Reference ranges for triglycerides, VLDL cholesterol, LDL cholesterol, and HDL cholesterol are not true population normal ranges but are threshold levels for increased risk of coronary artery disease established by ATP III guidelines from the National Cholesterol Education Program. Julisa Magdalena Morales PRINTING AGENT LAB BLOOD ORDERABLES Fin al Result Performing Organization Address [facility]/ZIP Co de Phone Number [facility]
[address] [place] [address], * (ABNORMAL) Comprehensive Metabolic Panel (01/03/2019 11:57 AM EDT) Glucose 258(H) 74 - 98 mg/dL [facility]2019 [facility] Comment:Glucose >180, Hemogl obin A1C recommended. BUN 46(H) 7 - 20 mg/dL 01/03/2019 1:20 PM EDT [facility] Creatinine 3.50(H) 0.60 - 1.30 mg/dL 01/03/2019 1:20 PM EDT [facility] Sodium 138 137 - 145 mmol/L 01/03/2019 1:20 PM EDT [facility] Potassium 5.0 3.5 - 5.1 mmol/L 01/03/2019 1:20 PM EDT [facility] Chloride 104 98 - 107 mmol/L 01/03/2019 1:20 PM EDT [facility] CO2 22.0(L) 26.0 - 30.0 mmol/L 01/03/2019 1:20 PM EDT [facility] Calcium 8.9 8.4 - 10.2 mg/dL 01/03/2019 1:20 PM T [facility] Total Protein 6.8 6.3 - 8.2 g/dL 01/03/2019 1:20 PM EDT [facility] Albumin 4.10 3.50 - 5.00 g/dL 01/03/2019 1:20 PM EDT [facility] ALT (SGPT) 28 13 - 69 U/L 01/03/2019 1:20 PM EDT [facility] AST (SGOT) 14(L) 15 - 46 U/L 01/03/2019 1:20 PM T [facility] Alkaline Phosphatase 67 38 - 126 U/L 01/03/2019 1:20 PM EDT [facility] Total Bilirubin 0.2 0.2 - 1.3 mg/dL 01/03/2019 1:20 PM EDT [facility] eGFR Non Amer 15(L) >60 mL/min/1.7 3 01/03/2019 1:20 PM EDT [facility] Globulin 2.7 gm/dL 01/03/2019 1:20 PM EDT [facility] A/G Ratio 1.5 1.0 - 2.0 g/dL 01/03/2019 1:20 PM EDT [facility] BUN/Creatinine Ratio 13.1 7.1 - 23.5 01/03/2019 1:20 PM EDT [facility] Anion Gap 17.0 10.0 - 20.0 mmol/L 01/03/2019 1:20 PM EDT [facility] Blood Venipuncture / Unknown 01/03/2019 11:57 AM EDT 01/03/2019 12:53 PM EDT Narrative [facility] - 01/03/2019 1:20 PM EDT GFR Normal >60 Chronic Kidney Disease <60 Kidney Failure <15 Julisa Morales PRINTING AGENT LAB BLOOD ORDERABLES Fin al Result [facility]
[address] [place] [address], [place] [phone] documented in this encounter Visit Diagnoses Diagnosis Diabetes mellitus without complication Type II or unspecified type diabetes mellitus without mention of complication, not stated as uncontrolled documented in this encounter
--- OUTSIDE RECORDS SUMMARY | 2024-06-11 08:36 | XMS_ITS | Encounter Summary ---
[facility] Organization [facility] Address [address] [place] [address] Care Team Providers Care French Weaver Name Role Phone Unavailable Primary Care Provider Unavailabl e Reason for Visit * Reason Comments Fall Encounter Details Date Type Department Care Team (Late st Contact Info) Description 01/27/2019 6:41 PM EDT - 01/27/2019 9:02 PM EDT Emergency [facility] [address] [place] [phone] Jaquan Arenas, Krissy Higginbotham MD Contusion [...] sent through Care Everywhere. * Rib Contusion (Northern Irish) * Knee Sprain Adult (Northern Irish) documented in this encounter Medications at Time [...] CHG and dressing applied. Silvia Laird RN 01/27/192101 * Maikol Quiroz Jr., JOHN - 01/27/2019 7:07 PM EDT Subjective 28-year-old female presents after a fall, she states that she fell on water while at [employer]. She hit the right side of her ribs on a wire in bucket when she fell. She is also complained of left knee pain that twisted underneath her. No head or neck injury no loss of consciousness, she arrived via EMS. History provided by: Patient food service agent used: No Review of Systems Musculoskeletal: Right [...] 10/17/2012 ??? SECTION ??? INDUCED 2006 [facility] History reviewed. No pertinent family history. [...] For this patient encounter, I reviewed the POLITICAL WORKER or PA documentation, treatment plan, and [...] on 01/27/2019 07:40:30 PM Maikol Quiroz Jr., PA-C [facility] CT ORDERABLES Fin ga Result * XR Knee 3 View Left (01/27/2019 7:19 PM EDT) Anatomical Region Laterality Modality Lower Extremities, Knee Left [facility] 01/28/2019 7:08 AM EDT Impressions 01/28/2019 [...] 01/28/2019 7:09 AM by Bubba Morel DO. Maikol Quiroz Jr., JOHN [facility] ORDERABLES Final Result documented [...]
--- OUTSIDE RECORDS SUMMARY | 2024-06-11 08:36 | XMS_ITS | Encounter Summary ---
[facility] Address [address] [place] [address] Care Team Providers Care Mid Level Provider Name Role Phone Unavailable Primary Care Provider Unavailabl e Reason for Referral * (Emergency) - Closed Specialty Diagnoses / Procedures Referred By Contac t Referred To Contact Radiology Diagnoses Left leg pain Procedures XR Tibia Fibula 2 View Left Fabiola Guzman MD [address] [place] [address] [place] [address] Phone: tel: fax: Referral ID Status Reason Start Date Expiration Date Visits Re quested Visits Authorized [id number] Closed 01/29/2019 01/29/2020 1 1 Reason for Visit * (Emergency) - Closed Specialty Diagnoses / Procedures Referred By Contac t Referred To Contact Radiology Diagnoses Pain of left hip joint Procedures XR Hip With or Without Pelvis 2 - 3 View Left XR Hip With or Without Pelvis 4 View Left Fabiola Guzamn MD [address] [place] [address] [place] [address] Phone: tel: fax: Referral ID Status Reason Start Date Expiration Date Visits Re quested Visits Authorized [id number] Closed 01/29/2019 01/29/2020 1 1 Encounter Details Date Type Department Care Team (Latest Contact Info) Description 01/29/2019 3:26 PM EDT - 01/29/2019 11:59 PM EDT Hospital Encounter [facility] [address] [place] [address] Left leg pain; Low back pain, unspecified [...]
--- OUTSIDE RECORDS SUMMARY | 2024-06-11 08:37 | XMS_ITS | Encounter Summary ---
Author Organization [facility] Address [address] [place] [address] Care Team Providers Care Marine Underwriter Name Role Phone Unavailable Primary Care Provider Unavailabl e Reason for Visit * Reason Comments Knee Pain Encounter Details Date Type Department Care Team (Late st Contact Info) Description 09/22/2018 8:20 PM EST - 09/22/2018 9:30 PM EST Emergency [facility] [address] [place] [phone] Dominik Rizo MD [address] [place] [address] Sprain of left knee, unspecified ligament, initial [...] through Care Everywhere. * Knee Sprain Adult (Armenian) documented in this encounter Medications at [...] Times a Day With Meals. 06/07/20 24 fenofibrate (TRICOR) 145 MG tablet Take 160 [...] or Vomiting. 20 tablet 03/14/2018 06/07/20 24 traMADol (ULTRAM) 50 MG tablet Take 1 [...] Chronic constipation ??? Depression ??? Diabetes mellitus ([facility]/HCC) ??? Excessive thirst ??? H/O mammogram 2014 [...] For this patient encounter, I reviewed the PYROTECHNIC MIXER or PA documentation, treatment plan, and medical [...] Laterality Modality Lower Extremities, Knee Left Radioa [facility] 09/23/2018 8:55 AM EST Impressions 09/23/2018 [...] AM by Surendra Pike MD. Tiago Dinh PA-C [facility] O RDERABLES Final Result [...]
--- OUTSIDE RECORDS SUMMARY | 2024-06-11 08:37 | XMS_ITS | Encounter Summary ---
Author Organization [facility] ystem Address [address] [place] [address] Care Team Providers Care Fibreglass Laminator Name Role Phone Unavailable Primary Care Provider Unavailabl e Reason for Visit * Reason Comments Fall Encounter Details Date Type Department Care Team (Late st Contact Info) Description 10/09/2018 7:27 PM EDT - 10/09/2018 9:06 PM EDT Emergency [facility] [address] [place] [phone] Dominik Rizo MD [address] [place] [address] Acute right-sided low back pain without sciatica [...] Care Everywhere. * Acute Back Pain Adult (Macedonian) * Knee Pain Adult Wieh-hx-Hjrw (Macedonian) documented in this encounter Medications at [...] Day With Meals. 06/07/20 24 cyclobenzaprine (FLEXERIL) 10 MG tablet Take 1 [...] Meals. 20 tablet 10/09/2018 05/03/20 19 ondansetron ODT (ZOFRAN-ODT) 4 MG [...] pain of left knee Dominik Rizo MD 10/09/182104 documented in this encounter Plan of Treatment [...] Laterality Modality Lower Extremities, Knee Left [facility] 10/10/2018 7:37 AM EDT Impressions 10/10/2018 [...] 10/10/2018 7:37 AM by Brittny Lacey M.D.. Dominik Rizo [...]
--- OUTSIDE RECORDS SUMMARY | 2024-06-11 08:37 | XMS_ITS | Encounter Summary ---
[facility] Address [address] [place] [address] Care Team Providers Care Motor And Controls Tester Name Role Phone Unavailable Primary Care Provider Unavailabl e Reason for Visit * (Emergency) - Closed Specialty Diagnoses / Procedures Referred By Xochitl t Referred To Contact Radiology Diagnoses Chest pain, unspecified type Procedures XR Chest 1 View Fabiola Guzman MD [address] [place] [address] [place] [address] Phone: tel: fax: Referral ID Status Reason Start Date Expiration Date Visits Re quested Visits Authorized [id number] Closed 08/28/2018 08/28/2019 1 1 Encounter Details Date Type Department Care Team (Latest Contact Info) Description 08/28/2018 1:42 PM EST - 08/28/2018 11:59 PM [facility] Hospital Encounter [facility] [address] [place] [address] Discharge Disposition: Home or Self [...] MG capsule BID 0 12/23/2015 02/16/20 23 lisinopril (PRINIVIL,ZESTRIL) 10 MG tablet Takes 20mg daily 0 12/23/2015 24 ondansetron ODT (ZOFRAN-ODT) 4 MG disintegrating tablet Take 1 tablet by mouth Every 6 (Six) Hours As Needed for Nausea or Vomiting. 20 tablet 03/14/2018 06/07/20 24 documented as of this encounter Plan of [...]
--- OUTSIDE RECORDS SUMMARY | 2024-06-11 08:37 | XMS_ITS | Encounter Summary ---
Author Organization [facility] ystem Address [address] [place] [address] Care Team Providers Care Welding Machine Operator Ultrasonic Name Role Phone Unavailable Primary Care Provider Unavailabl e Reason for Visit * Reason Comments Arm Pain Encounter Details Date Type Department Care Team (Late st Contact Info) Description 09/04/2018 7:45 PM EST - 09/04/2018 8:23 PM EST Emergency [facility] [address] [place] [phone] Krissy Bowman MD Arm fracture, left, [...] 06/07/20 24 documented as of this encounter ED Notes [...] For this patient encounter, I reviewed the TRAFFIC SERGEANT or PA documentation, treatment plan, and medical decision making. Krissy Bowman MD 09/04/2018 8:09 PM documented in this encounter Plan of Treatment Not on file documented as of this encounter Visit Diagnoses Diagnosis Arm fracture, left, sequela- Primary documented in this encounter
--- OUTSIDE RECORDS SUMMARY | 2024-06-11 08:37 | XMS_ITS | Encounter Summary ---
[facility] [address] [place] [address] Care Team Providers Care Snowboard Instructor Name Role Phone Unavailable Primary Care Provider Unavailabl e Encounter Details Date Type Department Care Team (Late st Contact Info) Description 08/28/2018 9:40 AM EST Lab [facility] [address] [place] [address] Chronic kidney disease, stage IV [...] 0-2(A) None Seen /HPF 08/28/2018 10:13 AM [facility] WBC, UA 0-2(A) None Seen /HPF 08/28/2018 10:13 AM EST [facility] Bacteria, UA Trace(A) None Seen /HPF 08/28/2018 10:13 AM [facility] Squamous Epithelial Cells, UA 0-2 None Seen, 0-2 /HPF 08/28/2018 10:13 AM EST [facility] Hyaline Casts, UA None Seen None Seen /LPF 08/28/2018 10:13 AM [facility] Methodology Manual Light Microscopy 08/28/2018 10:13 AM [facility] Urine Urine specimen collection, clean catch / Unknown Collection / Unknown 08/28/2018 9:39 AM EST 08/28/2018 9:57 AM EST us Mukul Stevens MD URINE ORDERABLES Final Result [facility]
[address] [place] [address], [place] [phone] * (ABNORMAL) Urinalysis without microscopic (no culture) - Urine, Clean Catch (08/28/2018 9:39 AM EST) Color, UA Yellow Yellow, Straw 08/28/2018 10:04 AM [facility] Appearance, UA Clear Clear 08/28/2018 10:04 AM [facility] pH, UA 7.0 5.0 - 8.0 08/28/2018 10:04 AM [facility] Specific [place], UA 1.015 1.005 - 1.030 08/28/2018 10:04 AM [facility] Glucose, UA 100 mg/dL (Trace)(A) Negative 08/28/2018 10:04 AM [facility] Ketones, UA Negative Negative 08/28/2018 10:04 AM [facility] Bilirubin, UA Negative Negative 08/28/2018 10:04 AM [facility] Blood, UA Trace(A) Negative 08/28/2018 10:04 AM [facility] Protein, UA 100 mg/dL (2+)(A) Negative 08/28/2018 10:04 AM [facility] Leuk Esterase, UA Negative Negative 08/28/2018 10:04 AM [facility] Nitrite, UA Negative Negative 08/28/2018 10:04 AM [facility] Urobilinogen, UA 0.2 E.U./dL 0.2 - 1.0 E.U./dL 08/28/2018 10:04 AM [facility] Urine Urine specimen collection, clean catch / Unknown Collection / Unknown 08/28/2018 9:39 AM EST 08/28/2018 9:57 AM EST Mukul Stevens MD URINE ORDERABLES Final Result [facility]
[address] [place] [address], [place] [phone] * (ABNORMAL) PTH, Intact (08/28/2018 9:39 AM EST) PTH, Intact 210(H) 15 - 65 pg/mL 08/29/2018 2:14 PM [facility] Blood Venipuncture / Unknown 08/28/2018 9:39 AM EST 08/28/2018 9:58 AM EST Narrative [facility] - 08/29/2018 2:14 PM EST Performed at: ??01 - [facility] [address] ??[id number] Multimedia Producer: Jacob Whaley PhD, Phone: ??[phone] us Mukul Stevens MD LAB BLOOD ORDERABLES F inal Result Performing Organization Address City/[facility]/ZIP Co de Phone Number [address] [address], [place] [phone] * Ferritin (08/28/2018 9:39 AM EST) Pathologist [facility] Ferritin 54.20 6.24 - 137.00 ng/mL 08/28/2018 11:12 AM EST [facility] Blood Venipuncture / Unknown 08/28/2018 9:39 AM EST 08/28/2018 9:58 AM EST us Mukul Stevens MD LAB BLOOD ORDERABLES F inal Result [facility]
[address] [place] [address], * Urine Culture - Urine, Urine, Clean Catch (08/28/2018 9:39 AM EST) Pathologist [facility] Urine Culture No growth KIRA 08/30/2018 7:40 AM EST [facility] Urine Urine specimen collection, clean catch / Unknown Collection / Unknown 08/28/2018 9:39 AM EST 08/28/2018 9:57 AM EST us Mukul Stevens MD MICROBIOLOGY - GENERAL ORDERABLES Final Result Performing Organization Address [facility] Co de Phone Number [facility]
[address] [place] [address], [place] [phone] * Iron Profile (08/28/2018 9:39 AM EST) Iron 48 37 - 181 mcg/dL 08/28/2018 11:12 AM EST [facility] TIBC 419 261 - 497 mcg/dL 08/28/2018 11:12 AM EST [facility] Iron Saturation (TSAT) 11 11 - 46 % 08/28/2018 11:12 AM EST [facility] Blood Venipuncture / Unknown 08/28/2018 9:39 AM EST 08/28/2018 9:58 AM EST Mukul Stevens MD LAB BLOOD ORDERABLES F inal Result Performing Organization Address City/[facility]/ZIP Co de Phone Number [facility]
[address] [place] [address], [place] [phone] documented in this encounter Visit Diagnoses Diagnosis Chronic kidney disease, stage IV (severe) Chronic kidney disease, Stage IV (severe) documented in this encounter
--- OUTSIDE RECORDS SUMMARY | 2024-06-11 08:37 | XMS_ITS | Encounter Summary ---
Author Organization [facility] ystem Address [address] [place] [address] Care Team Providers Care Photocopying Equipment Repairer Name Role Phone Unavailable Primary Care Provider Unavailabl e Reason for Visit * (Emergency) - Closed Specialty Diagnoses / Procedures Referred By Contac t Referred To Contact Radiology Diagnoses Low back pain without sciatica, unspecified back pain laterality, unspecified chronicity Procedures XR Spine Lumbar 2 or 3 View XR spine lumbar 4+ vw Fabiola Guzman MD [address] [place] [phone] Phone: tel: fax: Referral ID Status Reason Start Date Expiration Date Visits Re quested Visits Authorized [id number] Closed 09/25/2018 09/25/2019 1 1 Encounter Details Date Type Department Care Team (Late st Contact Info) Description 09/25/2018 1:30 PM EDT - 09/25/2018 11:59 PM EDT Hospital Encounter [facility] [address] [place] [address] Ming Low MD [address] [facility] [address] [place] [address] Discharge Disposition: Home or Self Care Social [...]
--- OUTSIDE RECORDS SUMMARY | 2024-06-11 08:37 | XMS_ITS | Encounter Summary ---
[facility] [address] [place] [address] Care Team Providers Care Beauty Shop Manager Name Role Phone Unavailable Primary Care Provider Unavailabl e Reason for Visit * (Emergency) - Closed Specialty Diagnoses / Procedures Referred By Xochitl t Referred To Contact Radiology Diagnoses Left knee pain, unspecified chronicity Procedures XR knee 3 vw left Thomas, Fabiola Villafuerte MD [address] [place] [phone] Phone: tel: fax: Referral ID Status Reason Start Date Expiration Date Visits Re quested Visits Authorized [id number] Closed 09/25/2018 09/25/2019 1 1 Encounter Details Date Type Department Care Team (Latest Contact Info) Description 09/25/2018 2:05 PM EDT - 09/25/2018 11:59 PM EDT Hospital Encounter [facility] XRAY [address] [place] [address] Discharge Disposition: Home or Self [...] Knee Left Radiogra [facility] Imaging 09/25/2018 2:34 PM EDT Impressions [...]
--- OUTSIDE RECORDS SUMMARY | 2024-06-11 08:37 | XMS_ITS | Encounter Summary ---
[facility] [address] [place] [address] Care Team Providers Care Reverberatory Skimmer Name Role Phone Unavailable Primary Care Provider Unavailabl e Reason for Visit * Hospital - Outpatient (Emergency) - Closed Specialty Diagnoses / Procedures Referred By Contel t Referred To Contact Radiology Diagnoses Hematuria, unspecified type Procedures US renal bilateral Thomas, Fabiola Villafuerte MD [address] [place] [phone] Phone: tel: fax: Referral ID Status Reason Start Date Expiration Date Visits Re quested Visits Authorized [id number] Closed 09/25/2018 09/25/2019 1 1 Encounter Details Date Type Department Care Team (Latest Contact Info) Description 09/25/2018 2:45 PM EDT - 09/25/2018 11:59 PM EDT Hospital Encounter [facility] [address] [place] [address] Discharge Disposition: Home or Self [...]
--- OUTSIDE RECORDS SUMMARY | 2024-06-11 08:37 | XMS_ITS | Encounter Summary ---
Author Organization [facility] ystem Address [address] [place] [address] Care Team Providers Care Speech And Language Assistant Name Role Phone Unavailable Primary Care Provider Unavailabl e Reason for Visit * Reason Comments Flank Pain Encounter Details Date Type Department Care Team (Late st Contact Info) Description 08/03/2018 5:42 PM EST - 08/03/2018 5:57 PM EST Emergency [facility] EMERGENCY DEPARTMENT [address] [place] [phone] Krissy Bowman MD Emergency, Triage Protocol, [place] [address] Discharge Disposition: Left Without Being Seen Social [...]
--- OUTSIDE RECORDS SUMMARY | 2024-06-11 08:37 | XMS_ITS | Encounter Summary ---
Author Organization [facility] ystem Address [address] [place] [id number] Care Team Providers Care Primer Inspector Name Role Phone Unavailable Primary Care Provider Unavailabl e Reason for Visit * Reason Comments Hand Pain Encounter Details Date Type Department Care Team (Late st Contact Info) Description 09/02/2018 6:31 PM EST - 09/02/2018 7:10 PM EST Emergency [facility] EMERGENCY DEPARTMENT [address] [place] [phone] Mickey Cerda MD [address] [place] [address] Closed fracture of proximal end of left [...] sent through Care Everywhere. * Ulnar Fracture (Cook Islander) documented in this encounter Medications [...] For this patient encounter, I reviewed the DESIGN ENGINEERING TECHNICIAN or PA documentation, treatment plan, and medical decision making. Mickey Cerda MD 09/03/2018 7:19 AM documented in this encounter Plan of Treatment Not on file documented as of this encounter Visit Diagnoses Diagnosis Closed fracture of proximal end of left ulna, unspecified fracture morphology, initial encounter- Primary documented in this encounter
--- OUTSIDE RECORDS SUMMARY | 2024-06-11 08:37 | XMS_ITS | Encounter Summary ---
Author Organization [facility] ystem Address [address] [place] [address] Care Team Providers Care Optoelectronic Technician Name Role Phone Unavailable Primary Care Provider Unavailabl e Encounter Details Date Type Department Care Team (Late st Contact Info) Description 10/11/2018 Telephone [facility] UROLOGY [address] [place] [phone] Fabiola Guzman MD [address] [place], [place] [id number] Social History Tobacco Use Types Packs/Day Years [...]
--- OUTSIDE RECORDS SUMMARY | 2024-06-11 08:37 | XMS_ITS | Encounter Summary ---
Author Organization [facility] ystem Address [address] [place] [address] Care Team Providers Care Morphology Teacher Name Role Phone Unavailable Primary Care Provider Unavailabl e Encounter Details Date Type Department Care Team (Late st Contact Info) Description 12/12/2018 11:15 AM EDT Consult [facility] HEMATOLOGY & ONCOLOGY [address] [facility] [address] [facility] [address] [place] [address] Mare Johnston MD [address] [facility] [address] [place] [address] Anemia due to chronic kidney disease, unspecified [...] SECTION 10/17/2012 ??? SECTION ??? INDUCED 2006 [facility] Social History Socioeconomic History ??? Marital status: [...] begin procrit. I will defer to her mold setter regarding the timing of initiating Procrit treatment. [...]
--- OUTSIDE RECORDS SUMMARY | 2024-06-11 08:37 | XMS_ITS | Encounter Summary ---
[facility] Address [address] [place] [address] Care Team Providers Care Application Integration Engineer Name Role Phone Unavailable Primary Care Provider Unavailabl e Reason for Visit * (Emergency) - Closed Specialty Diagnoses / Procedures Referred By Xochitl t Referred To Contact Radiology Diagnoses Hematuria, unspecified type Procedures XR abdomen Fabiola Drummond MD [address] [place] [address] [place] [address] Phone: tel: fax: Referral ID Status Reason Start Date Expiration Date Visits Re quested Visits Authorized [id number] Closed 09/25/2018 09/25/2019 1 1 Encounter Details Date Type Department Care Team (Latest Contact Info) Description 09/25/2018 1:45 PM EDT - 09/25/2018 11:59 PM EDT Hospital Encounter [facility] XRAY [address] [place] [address] Discharge Disposition: Home or Self [...]
--- OUTSIDE RECORDS SUMMARY | 2024-06-11 08:37 | XMS_ITS | Encounter Summary ---
Author Organization [facility] ystem Address [address] [place] [phone] Care Team Providers Care Steel Fabricator Name Role Phone Unavailable Primary Care Provider Unavailabl e Reason for Visit * Reason Comments Leg Pain Encounter Details Date Type Department Care Team (Late st Contact Info) Description 10/31/2018 9:24 PM EDT - 10/31/2018 10:26 PM EDT Emergency [facility] EMERGENCY DEPARTMENT [address] [place] [address] Phill Gama, DO [address] [place], [place] [id number] Acute left-sided low back pain with left-sided [...] be sent through Care Everywhere. * Sciatica Sban-fj-Xcbu (Arabic) documented in this encounter Medications at Time [...] On Tue10/31/18 at 2218, For 1 dose 2224 (Given - Provid er: Bing Tomlin RN) dexamethasone (DECADRON) tablet 10 mg (COMPLETED) 10 mg, Oral, Once, On Tue10/31/18 at 2218, For 1 dose, Take with food. 2224 (Given - Provid er: Bing Tomlin RN) documented in this encounter
--- OUTSIDE RECORDS SUMMARY | 2024-06-11 08:37 | XMS_ITS | Encounter Summary ---
[facility] Address [address] [place] [address] Care Team Providers Care Locks Inspector Name Role Phone Unavailable Primary Care Provider Unavailabl e Reason for Visit * Reason Comments Dysuria Encounter Details Date Type Department Care Team (Late st Contact Info) Description 12/21/2018 1:55 AM EDT - 12/21/2018 3:13 AM EDT Emergency [facility] EMERGENCY DEPARTMENT [address] [place] [phone] Jaquan Arenas, Urinary tract infection without [...] Care Everywhere. * Urinary Tract Infection Adult (Malagasy) * Chronic Kidney Disease Adult (Malagasy) documented in this encounter Medications at Time [...] ??? SECTION ??? INDUCED 2006 [facility] History reviewed. No pertinent family history. [...] ED Course User Index [PF] Jaquan Arenas, DO MDM Patient declined any IV labs here. Is nontoxic, urinalysis suggestive of mild a urinary tract infection. Patient denies any chance of . Patient will be discharged home stable condition with Omnicef as well as Pyridium. Return precautions were provided including fever, Rigors, intractable vomiting. Final diagnoses: Urinary tract infection without hematuria, site unspecified Chronic renal failure, stage 4 (severe) ([facility]) Jaquan Arenas DO 12/21/18 0458 * Roxann Sharpe RN - 12/21/2018 2:35 AM EDT Pt refused labs and fluids at this time, MD notified. PT up to restroom for urine sample Roxann Sharpe RN 12/21/18 0235 Roxann Sharpe RN 12/21/18 0235 [...] Seen /HPF 12/21/2018 2:56 AM EDT [facility] WBC, UA 3-5(A) None Seen /HPF 12/21/2018 2:56 AM EDT [facility] Bacteria, UA Trace(A) None Seen /HPF 12/21/2018 2:56 AM EDT [facility] Squamous Epithelial Cells, UA 3-6(A) None Seen, 0-2 /HPF 12/21/2018 2:56 AM EDT [facility] Hyaline Casts, UA None Seen None Seen /LPF 12/21/2018 2:56 AM EDT [facility] WBC Clumps, UA Small/1+ None Seen /HPF 12/21/2018 2:56 AM EDT [facility] Methodology Manual Light Microscopy 12/21/2018 2:56 AM T [facility] Urine Urine specimen collection, clean catch / Unknown Collection / Unknown 12/21/2018 2:38 AM EDT 12/21/2018 2:45 AM EDT Jaquan Arenas DO URINE ORDERABLES Final Result [facility]
[address] [place] [address], [place] [phone] * (ABNORMAL) Urinalysis With Culture If Indicated - Urine, Clean Catch (12/21/2018 2:38 AM EDT) Color, UA Yellow Yellow, Straw 12/21/2018 2:48 AM EDT [facility] Appearance, UA Clear Clear 12/21/2018 2:48 AM EDT [facility] pH, UA 6.5 5.0 - 8.0 12/21/2018 2:48 AM EDT [facility] Specific [place], UA 1.013 1.005 - 1.030 12/21/2018 2:48 AM EDT [facility] Glucose, UA 250 mg/dL (1+)(A) Negative 12/21/2018 2:48 AM EDT [facility] Ketones, UA Negative Negative 12/21/2018 2:48 AM EDT [facility] Bilirubin, UA Negative Negative 12/21/2018 2:48 AM EDT [facility] Blood, UA Trace(A) Negative 12/21/2018 2:48 AM EDT [facility] Protein, UA >=300 mg/dL (3+)(A) Negative 12/21/2018 2:48 AM EDT [facility] Leuk Esterase, UA Negative Negative 12/21/2018 2:48 AM EDT [facility] Nitrite, UA Negative Negative 12/21/2018 2:48 AM EDT [facility] Urobilinogen, UA 0.2 E.U./dL 0.2 - 1.0 E.U./dL 12/21/2018 2:48 AM EDT [facility] Urine Urine specimen collection, clean catch / Unknown Collection / Unknown 12/21/2018 2:38 AM EDT 12/21/2018 2:45 AM EDT Jaquan Arenas DO URINE ORDERABLES Final Result [facility]
[address] [place] [address], documented in this encounter Visit Diagnoses Diagnosis [...] (COMPLETED) 200 mg, Oral, Once, On Emma 12/21/18 at 0305, For 1 dose, Swallow whole; do not crush, split, or chew. 0311 (Given - Provid er: Roxann Sharpe RN) documented in this encounter
--- OUTSIDE RECORDS SUMMARY | 2024-06-11 08:37 | XMS_ITS | Encounter Summary ---
Author Organization [facility] ystem Address [address] [place] [address] Care Team Providers Care Wound Care Specialist Name Role Phone Unavailable Primary Care Provider Unavailabl e Reason for Visit * Reason Comments Foot Injury Encounter Details Date Type Department Care Team (Late st Contact Info) Description 12/23/2018 4:42 PM EDT - 12/23/2018 6:50 PM EDT Emergency [facility] EMERGENCY DEPARTMENT [address] [place] [phone] Christopher Aggarwal MD Contusion of right [...] be sent through Care Everywhere. * Contusion Ruon-ql-Uohl (Turkish) documented in this encounter Medications at [...] ??? SECTION ??? INDUCED 2006 [facility] History reviewed. No pertinent family [...] For this patient encounter, I reviewed the ACOUSTICAL INSTALLER or PA documentation, treatment plan, and medical [...] Laterality Modality Lower Extremities, Foot [facility] 12/23/2018 6:26 PM EDT Impressions 12/23/2018 [...] Ron Adams M.D. on 12/23/2018 06:26:58 PM Pearl Yanezhead DIRECTOR INDUSTRIAL RELATIONS IMG DIAGNOSTIC IMAGING OR DERABLES Final Result [...]
--- OUTSIDE RECORDS SUMMARY | 2024-06-11 08:37 | XMS_ITS | Encounter Summary ---
Author Organization [facility] ystem Address [address] [place] [address] Care Team Providers Care Welding Pantograph Machine Operator Name Role Phone Unavailable Primary Care Provider Unavailabl e Reason for Visit * Reason Comments Post-op Problem Encounter Details Date Type Department Care Team (Late st Contact Info) Description 11/02/2018 7:56 PM EDT - 11/02/2018 9:23 PM EDT Emergency [facility] EMERGENCY DEPARTMENT [address] [place] [address] Phill Gama, DO [address] [place], [place] [phone] Pain, dental (Primary Dx) Discharge Disposition: Home [...] sent through Care Everywhere. * Dental Pain Tdia-qa-Azrz (Bulgarian) documented in this encounter Medications at [...] ED Notes * Bc Dumont PA-C - 11/02/2018 8:02 PM EDT Subjective Patient [...] Associated attestation - Phill Gama DO - 11/02/2018 11:14 PM EDT For this patient encounter, I reviewed the APPLIED SCIENCE AND TECHNOLOGIES DEAN or PA documentation, treatment plan, and medical decision making. Phill Gama DO 11/02/2018 11:14 PM documented in this encounter [...]
--- OUTSIDE RECORDS SUMMARY | 2024-06-11 08:37 | XMS_ITS | Encounter Summary ---
Author Organization [facility] ystem Address [address] [place] [address] Care Team Providers Care Dyslexia Teacher Name Role Phone Unavailable Primary Care Provider Unavailabl e Reason for Visit * Reason Comments Arm Pain Encounter Details Date Type Department Care Team (Late st Contact Info) Description 09/09/2018 11:51 PM EST - 09/10/2018 12:50 AM EST Emergency [facility] EMERGENCY DEPARTMENT [address] [place] [phone] Dominik Rizo MD [address] [place] [address] Arm fracture, left, sequela (Primary Dx) Discharge [...] Everywhere. * Cast or Splint Care Adult Aozc-dp-Phrv (Urdu) documented in this encounter Medications at Time [...] herself. States she then went to the [place] emergency department 2 days ago where they put a splint on her that she thought was too flimsy so she took it off. She states her arm was hurting her today [facility] [...] Procedure Name Priority Date/Time Associated Diagnosis Comments MS APPLICATION LONG ARM SPLINT SHOULDER HAND Routine 09/10/2018 12:49 AM EST documented in this encounter Results * MS APPLICATION LONG ARM SPLINT SHOULDER HAND (09/10/2018 [...]
--- OUTSIDE RECORDS SUMMARY | 2024-06-11 08:37 | XMS_ITS | Encounter Summary ---
[facility] Address [address] [place] [address] Care Team Providers Care Bag Maker Name Role Phone Unavailable Primary Care Provider Unavailabl e Reason for Visit * Hospital - Outpatient (Emergency) - Closed Specialty Diagnoses / Procedures Referred By Contel t Referred To Contact Radiology Diagnoses Hematuria, unspecified type Procedures US urinary bladder Thomas, Fabiola Villafuerte MD [address] [place] [phone] Phone: tel: fax: Referral ID Status Reason Start Date Expiration Date Visits Re quested Visits Authorized [id number] Closed 09/25/2018 09/25/2019 1 1 Encounter Details Date Type Department Care Team (Latest Contact Info) Description 09/25/2018 2:15 PM EDT - 09/25/2018 11:59 PM EDT Hospital Encounter [facility] [address] [place] [address] Discharge Disposition: Home or Self [...]
--- OUTSIDE RECORDS SUMMARY | 2024-06-11 08:37 | XMS_ITS | Encounter Summary ---
[facility] Address [address] [place] [address] Care Team Providers Care Digital Cartographic Technician Name Role Phone Unavailable Primary Care Provider Unavailabl e Reason for Visit * Reason Comments Arm Pain Encounter Details Date Type Department Care Team (Late st Contact Info) Description 09/01/2018 1:01 PM EST - 09/01/2018 2:23 PM EST Emergency [facility] EMERGENCY DEPARTMENT [address] [place] [phone] Krissy Bowman MD Closed fracture of [...] sent through Care Everywhere. * Ulnar Fracture (Taiwanese) documented in this encounter Medications at Time [...] For this patient encounter, I reviewed the POWER SUPERINTENDENT or PA documentation, treatment plan, and medical decision making. Krissy Bowman MD 09/01/2018 7:40 PM documented in this encounter Plan of Treatment Not on file documented as of this encounter Procedures Procedure Name Priority Date/Time Associated Diagnosis Comments XR ELBOW 3+ VW LEFT STAT 09/01/2018 1 :38 PM EST ID APPLICATION CAST SHOULDER HAND LONG ARM Routine 09/01/2018 1:18 PM EST ID APPLICATION LONG ARM SPLINT SHOULDER HAND Routine [...] DIAGNOSTIC ANURAG GING ORDERABLES Final Result * ID APPLICATION LONG ARM SPLINT SHOULDER HAND, ID APPLICATION CAST SHOULDER HAND LONG ARM (09/01/2018 [...]
--- OUTSIDE RECORDS SUMMARY | 2024-06-11 08:37 | XMS_ITS | Encounter Summary ---
[facility] Address [address] [place] [address] Care Team Providers Care Crm Marketing Analyst Name Role Phone Unavailable Primary Care Provider Unavailabl e Reason for Visit * (Emergency) - Closed Specialty Diagnoses / Procedures Referred By Contel t Referred To Contact Radiology Diagnoses Rib pain Procedures XR Ribs Left With PA Chest Thomas, Fabiola Villafuerte MD [address] [place] [phone] Phone: tel: fax: Referral ID Status Reason Start Date Expiration Date Visits Re quested Visits Authorized [id number] Closed 08/28/2018 08/28/2019 1 1 Encounter Details Date Type Department Care Team (Late st Contact Info) Description 08/28/2018 1:34 PM EST - 08/28/2018 11:59 PM [facility] Hospital Encounter [facility] XRAY [address] [place] [phone] [place] [address] [place] [address] [address] [place] [address] Discharge Disposition: Home or Self Care Social [...]
--- OUTSIDE RECORDS SUMMARY | 2024-06-11 08:38 | XMS_ITS | Encounter Summary ---
Author Organization [facility] Address [address] [place] [address] Care Team Providers Care Air Support Control Officer Name Role Phone Unavailable Primary Care Provider Unavailabl e Reason for Visit * Reason Comments Tingling Encounter Details Date Type Department Care Team (Late st Contact Info) Description 05/08/2018 6:16 PM EDT - 05/08/2018 6:32 PM EDT Emergency [facility] EMERGENCY DEPARTMENT [address] [place] [phone] Mickey Cerda MD [address] [place] [address] Chronic painful diabetic neuropathy (Primary [...] sent through Care Everywhere. * Neuropathic Pain (Sami) documented in this encounter Medications at Time of Discharge atorvastatin (LIPITOR) 40 MG tablet TAKE 1 TABLET EVERY DAY 0 12/23/2015 acetaminophen (TYLENOL) 500 MG tablet Take 1 [...] 9 injections per day. 8 lisinopril (PRINIVIL,ZESTRIL) 10 MG tablet Takes 20mg daily 0 12/23/2015 4 lisinopril (PRINIVIL,ZESTRIL) 20 MG tablet Take 20 mg by mouth Daily. 8 loratadine (CLARITIN) 10 MG tablet Take 10 mg by mouth. 1/2 daily as needed 8 loratadine (CLARITIN) 10 MG tablet Take 10 mg by mouth Daily. 8 magnesium oxide (MAGOX) 400 (241.3 MG) MG tablet tablet TAKE 1 TABLET EVERY DAY 0 12/23/2015 8 ondansetron ODT (ZOFRAN-ODT) 4 MG disintegrating tablet Take 1 tablet by mouth Every 6 (Six) Hours As Needed for Nausea or Vomiting. 20 tablet 03/14/2018 4 pramipexole (MIRAPEX) 0.125 MG tablet TAKE 1 [...]
--- OUTSIDE RECORDS SUMMARY | 2024-06-11 08:38 | XMS_ITS | Encounter Summary ---
[facility] [address] [place] [address] Care Team Providers Care Professional Housing Consultant Name Role Phone Unavailable Primary Care Provider Unavailabl e Encounter Details Date Type Department Care Team (Late st Contact Info) Description 06/15/2018 Readmission Management [facility] NURSE CALL CENTER [address] [place] [phone] Beth Mckeon, RN Social History Tobacco Use Types Packs/Day [...] Prep Survey Responses Facility patient discharged from? [facility] [place] Is patient eligible? Yes Discharge diagnosis Acute [...]
--- OUTSIDE RECORDS SUMMARY | 2024-06-11 08:38 | XMS_ITS | Encounter Summary ---
Author Organization [facility] Address [address] [place] [address] Care Team Providers Care Systems Administrator Name Role Phone Unavailable Primary Care Provider Unavailabl e Reason for Referral * Hospital - Outpatient (Routine) - Closed Specialty Diagnoses / Procedures Referred By Xochitl burt Referred To Contact Radiology Diagnoses Type 2 diabetes mellitus with ESRD (end-stage renal disease) Procedures US Renal Bilateral Chacha Gama DO Phone: tel: fax: Referral ID Status Reason Start Date Expiration Date Visits Re quested Visits Authorized [id number] Closed 04/07/2018 04/07/2019 1 1 Reason for Visit * Hospital - Outpatient (Routine) - Closed Specialty Diagnoses / Procedures Referred By Xochitl burt Referred To Contact Radiology Diagnoses Type 2 diabetes mellitus with ESRD (end-stage renal disease) Procedures US Renal Bilateral Chacha Gama DO Phone: tel: fax: Referral ID Status Reason Start Date Expiration Date Visits Re quested Visits Authorized [id number] Closed 04/07/2018 04/07/2019 1 1 Encounter Details Date Type Department Care Team (Late st Contact Info) Description 04/13/2018 12:00 PM EDT - 04/13/2018 11:59 PM EDT Hospital Encounter [facility] [address] [place] [phone] Chacha Gama DO [address] [place] [id number] Type 2 diabetes mellitus with ESRD (end-stage [...] TAKE 1 TABLET EVERY DAY 0 12/23/2015 amLODIPine (NORVASC) 10 MG tablet [...]
--- OUTSIDE RECORDS SUMMARY | 2024-06-11 08:38 | XMS_ITS | Encounter Summary ---
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 * Upper Respiratory Infection Adult Kegt-aa-Bhvi (Guatemalan) * Nonspecific Chest Pain Seys-ie-Uywr (Guatemalan) * Dehydration Adult Qdbb-wq-Dzrj (Guatemalan) * Hyperglycemia (Guatemalan) documented in this encounter Medications at [...] congestion, cough, sinus pressure. Have been using [id number] symptomatic medications without any relief. Several hours [...] sample at this time. Stephani Hutton RN 03/24/186 * Sarah Shaffer RN - 03/24/2018 10:03 PM EDT Pt stated she could not give urine sample at this time; refused in/out cath, stating after receiving IV fluids she could probably go ; will continue to monitor Sarah Shaffer RN 03/24/18 [id number] documented in this encounter Plan of Treatment [...] EDT) Site OTHER 03/25/2018 12:15 AM EDT [facility] pH, Venous 7.335 7.320 - 7.420 pH Units 03/25/2018 12:15 AM EDT [facility] pCO2, Venous 34.6(L) 40.0 - 50.0 mm Hg 03/25/2018 12:15 AM EDT [facility] pO2, Venous 26.0(L) 30.0 - 50.0 mm Hg 03/25/2018 12:15 AM EDT [facility] HCO3, Venous 18.5(L) 22.0 - 28.0 mmol/L 03/25/2018 12:15 AM EDT [facility] Base Excess, Venous -6.7(L) 0.0 - 2.0 mmol/L 03/25/2018 12:15 AM EDT [facility] O2 Saturation, Venous 45.9 45.0 - 75.0 % 03/25/2018 12:15 AM EDT [facility] Barometric Pressure for Blood Gas 736 mmHg 03/25/2018 12:15 AM EDT [facility] Modality Room Air 03/25/2018 12:15 AM EDT [facility] Ventilator Mode NA 8 12:15 AM EDT [facility] Venous Blood 03/25/2018 12:1 5 AM EDT 03/25/2018 12:15 AM EDT us Christopher Aggarwal MD LAB BLOOD ORDERABLES Fin al Result [facility]
[address] [place] [address], * XR Hip With or Without Pelvis [...] None Seen /HPF 03/24/2018 11:30 PM EDT [facility] WBC, UA 3-5(A) None Seen /HPF 03/24/2018 11:30 PM EDT [facility] Bacteria, UA 1+(A) None Seen /HPF 03/24/2018 11:30 PM EDT [facility] Squamous Epithelial Cells, UA 0-2 None Seen, 0-2 /HPF 03/24/2018 11:30 PM EDT [facility] Hyaline Casts, UA None Seen None Seen /LPF 03/24/2018 11:30 PM EDT [facility] Methodology Manual Light Microscopy 03/24/2018 11:30 PM EDT [facility] Urine Urine specimen collection, clean catch / Unknown Collection / Unknown 03/24/2018 11:15 PM EDT 03/24/2018 11:17 PM EDT Christopher Aggarwal MD URINE ORDERABLES Final R esult [facility]
[address] [place] [address], [place] [phone] * (ABNORMAL) Urinalysis With Microscopic If Indicated (No Culture) - Urine, Clean Catch (03/24/2018 11:15 PM EDT) Color, UA Straw Yellow, Straw 03/24/2018 11:22 PM EDT [facility] Appearance, UA Clear Clear 03/24/2018 11:22 PM EDT [facility] pH, UA 5.5 5.0 - 8.0 03/24/2018 11:22 PM EDT [facility] Specific [place], UA 1.025 1.005 - 1.030 03/24/2018 11:22 PM EDT [facility] Glucose, UA >=1000 mg/dL (3+)(A) Negative 03/24/2018 11:22 PM EDT [facility] Ketones, UA Negative Negative 03/24/2018 11:22 PM EDT [facility] Bilirubin, UA Negative Negative 03/24/2018 11:22 PM EDT [facility] Blood, UA Small (1+)(A) Negative 03/24/2018 11:22 PM EDT [facility] Protein, UA >=300 mg/dL (3+)(A) Negative 03/24/2018 11:22 PM EDT [facility] Leuk Esterase, UA Negative Negative 03/24/2018 11:22 PM EDT [facility] Nitrite, UA Negative Negative 03/24/2018 11:22 PM EDT [facility] Urobilinogen, UA 0.2 E.U./dL 0.2 - 1.0 E.U./dL 03/24/2018 11:22 PM EDT [facility] Urine Urine specimen collection, clean catch / Unknown Collection / Unknown 03/24/2018 11:15 PM EDT 03/24/2018 11:17 PM EDT Christopher Aggarwal MD URINE ORDERABLES Final R esult [facility]
[address] [place] [id number], * , Urine - Urine, Clean Catch (03/24/2018 11:15 PM EDT) HCG, Urine QL Negative Negative 03/24/2018 11:22 PM EDT [facility] Urine Urine specimen collection, clean catch / Unknown Collection / Unknown 03/24/2018 11:15 PM EDT 03/24/2018 11:17 PM EDT Christopher Aggarwal MD URINE ORDERABLES Final R esult [facility]
[address] [place] [address], [place] [phone] * (ABNORMAL) CBC Auto Differential (03/24/2018 10:22 PM EDT) WBC 10.76 4.80 - 10.80 10*3/mm3 03/24/2018 10:30 PM EDT [facility] RBC 3.96(L) 4.20 - 5.40 10*6/mm3 03/24/2018 10:30 PM EDT [facility] Hemoglobin 11.6(L) 12.0 - 16.0 g/dL 03/24/2018 10:30 PM EDT [facility] Hematocrit 33.0(L) 37.0 - 47.0 % 03/24/2018 10:30 PM EDT [facility] MCV 83.3 81.0 - 99.0 fL 03/24/2018 10:30 PM EDT [facility] MCH 29.3 27.0 - 31.0 pg 03/24/2018 10:30 PM EDT [facility] MCHC 35.2 30.0 - 37.0 g/dL 03/24/2018 10:30 PM EDT [facility] RDW 11.7 11.5 - 14.5 % 03/24/2018 10:30 PM EDT [facility] RDW-SD 35.4(L) 37.0 - 54.0 fl 03/24/2018 10:30 PM EDT [facility] MPV 12.6(H) 6.0 - 12.0 fL 03/24/2018 10:30 PM EDT [facility] Platelets 260 130 - 400 10*3/mm3 03/24/2018 10:30 PM EDT [facility] Neutrophil % 47.5 37.0 - 80.0 % 03/24/2018 10:30 PM EDT [facility] Lymphocyte % 42.8 10.0 - 50.0 % 03/24/2018 10:30 PM EDT [facility] Monocyte % 5.1 0.0 - 12.0 % 03/24/2018 10:30 PM EDT [facility] Eosinophil % 3.3 0.0 - 7.0 % 03/24/2018 10:30 PM EDT [facility] Basophil % 0.4 0.0 - 2.5 % 03/24/2018 10:30 PM EDT [facility] Immature Grans % 0.9(H) 0.0 - 0.6 % 03/24/2018 10:30 PM EDT [facility] Neutrophils, Absolute 5.11 2.00 - 6.90 10*3/mm3 03/24/2018 10:30 PM EDT [facility] Lymphocytes, Absolute 4.61(H) 0.60 - 3.40 10*3/mm3 03/24/2018 10:30 PM EDT [facility] Monocytes, Absolute 0.55 0.00 - 0.90 10*3/mm3 03/24/2018 10:30 PM EDT [facility] Eosinophils, Absolute 0.35 0.00 - 0.70 10*3/mm3 03/24/2018 10:30 PM EDT [facility] Basophils, Absolute 0.04 0.00 - 0.20 10*3/mm3 03/24/2018 10:30 PM EDT [facility] Immature Grans, Absolute 0.10(H) 0.00 - 0.06 10*3/mm3 03/24/2018 10:30 PM EDT [facility] nRBC 0.0 0.0 - 0.0 /100 WBC 03/24/2018 10:30 PM EDT [facility] Blood Venipuncture / Unknown 03/24/2018 10:22 PM EDT 03/24/2018 10:27 PM EDT Christopher Aggarwal MD LAB BLOOD ORDERABLES Fin al Result [facility]
[address] [place] [id number], * Procalcitonin (03/24/2018 10:22 PM EDT) Procalcitonin <0.05 <=0.25 ng/mL 03/24/2018 11:23 PM EDT [facility] Blood Venipuncture / Unknown 03/24/2018 10:22 PM EDT 03/24/2018 10:27 PM EDT Narrative [facility] - 03/24/2018 11:23 PM [...] ORDERABLES Fin al Result Performing Organization Address City/[facility]/ZIP Co de Phone Number [facility]
[address] [place] [address], * Lactic Acid, Plasma (03/24/2018 10:22 PM EDT) Lactate 1.8 0.5 - 2.0 mmol/L 03/24/2018 10:46 PM EDT [facility] Blood Venipuncture / Unknown 03/24/2018 10:22 PM EDT 03/24/2018 10:27 PM EDT us Christopher Aggarwal MD LAB BLOOD ORDERABLES Fin al Result Performing Organization Address [facility] [[email or web address]] Co de Phone Number [facility]
[address] [place] [address], * Troponin (03/24/2018 10:22 PM EDT) Troponin I <0.012 0.000 - 0.034 ng/mL 03/24/2018 10:57 PM EDT [facility] Blood Venipuncture / Unknown 03/24/2018 10:22 PM EDT 03/24/2018 10:27 PM EDT Narrative [facility] - 03/24/2018 10:57 PM EDT Normal Patient Upper Reference Limit (URL) (99th Percentile)=0.03 ng/mL Non-AMI Illness Reference Limit=0.03-0.11 ng/mL AMI Confirmation=0.12 ng/mL and above us Christopher Aggarwal MD LAB BLOOD ORDERABLES Fin al Result Performing Organization Address City/[facility]/ZIP Co de Phone Number [facility]
[address] [place] [address], * (ABNORMAL) BNP (03/24/2018 10:22 PM EDT) proBNP 249.0(HH) 0.0 - 125.0 pg/mL 03/24/2018 11:01 PM EDT [facility] Blood Venipuncture / Unknown 03/24/2018 10:22 PM EDT 03/24/2018 10:27 PM EDT Christopher Aggarwal MD LAB BLOOD ORDERABLES Fin al Result [facility]
[address] [place] [address], * Lipase (03/24/2018 10:22 PM EDT) Lipase 207 23 - 300 U/L 03/24/2018 10:57 PM EDT [facility] Blood Venipuncture / Unknown 03/24/2018 10:22 PM EDT 03/24/2018 10:27 PM EDT Christopher Aggarwal MD LAB BLOOD ORDERABLES Fin al Result Performing Organization Address City/[facility]/ZIP Co de Phone Number [facility]
[address] [place] [address], * (ABNORMAL) Comprehensive Metabolic Panel (03/24/2018 10:22 PM EDT) Glucose 422(HH) 74 - 98 mg/dL 03/24/2018 11:01 PM EDT [facility] BUN 29(H) 7 - 20 mg/dL 03/24/2018 11:01 PM EDT [facility] Creatinine 2.00(H) 0.60 - 1.30 mg/dL 03/24/2018 11:01 PM EDT [facility] Sodium 132(L) 137 - 145 mmol/L 03/24/2018 11:01 PM EDT [facility] Potassium 4.1 3.5 - 5.1 mmol/L 03/24/2018 11:01 PM EDT [facility] Chloride 103 98 - 107 mmol/L 03/24/2018 11:01 PM [facility] CO2 16.0(L) 26.0 - 30.0 mmol/L 03/24/2018 11:01 PM [facility] Calcium 8.9 8.4 - 10.2 mg/dL 03/24/2018 11:01 PM [facility] Total Protein 6.6 6.3 - 8.2 g/dL 03/24/2018 11:01 PM [facility] Albumin 3.50 3.50 - 5.00 g/dL 03/24/2018 11:01 PM [facility] ALT (SGPT) 22 13 - 69 U/L 03/24/2018 11:01 PM [facility] AST (SGOT) 12(L) 15 - 46 U/L 03/24/2018 11:01 PM [facility] Alkaline Phosphatase 120 38 - 126 U/L 03/24/2018 11:01 PM [facility] Total Bilirubin 0.2 0.2 - 1.3 mg/dL 03/24/2018 11:01 PM [facility] eGFR Non Amer 30(L) >60 mL/min/1.7 3 03/24/2018 11:01 PM [facility] Globulin 3.1 gm/dL 03/24/2018 11:01 PM [facility] A/G Ratio 1.1 1.0 - 2.0 g/dL 03/24/2018 11:01 PM [facility] BUN/Creatinine Ratio 14.5 7.1 - 23.5 03/24/2018 11:01 PM [facility] Anion Gap 17.1 10.0 - 20.0 mmol/L 03/24/2018 11:01 PM [facility] Blood Venipuncture / Unknown 03/24/2018 10:22 PM EDT 03/24/2018 10:27 PM EDT [facility] - 03/24/2018 11:01 PM EDT GFR Normal >60 Chronic Kidney Disease <60 Kidney Failure <15 us Christopher Aggarwal MD LAB BLOOD ORDERABLES Fin al Result [facility]
[address] [place] [address], documented in this encounter Visit Diagnoses Diagnosis [...]
--- OUTSIDE RECORDS SUMMARY | 2024-06-11 08:38 | XMS_ITS | Encounter Summary ---
[facility] Address [address] [place] [address] Care Team Providers Care Service Cleaner Name Role Phone Unavailable Primary Care Provider Unavailabl e Reason for Visit * Reason Comments Abdominal Pain * Auth/Cert Specialty Diagnoses / Procedures Referred By Contac t Referred To Contact Diagnoses Pyelonephritis, acute Pyelonephritis, acute Procedures - Referral ID Status Reason Start Date Expiration Date Visits Re quested Visits Authorized [id number] 1 1 Encounter Details Date Type Department Care Team (Latest Contact Info) Description 07/21/2018 4:45 PM EST - 07/22/2018 7:55 PM [facility] Hospital Encounter [facility] [address] [place] [address] Christopher Aggarwal MD Gilbert, Cody B, DO [address] [place] [address] Jarred Bauman MD [address] [place], [place] [id number] Pyelonephritis, acute (Primary Dx); Acute renal failure [...] from the original note were not included. [facility] DISCHARGE SUMMARY Name: Crystal Archer Age: 27 y.o. Sex: female : 1990 Visit Number: [id number] Admission Date: 07/21/2018 Date of Discharge: 07/22/2018 [...] Patient did have a renal biopsy at [facility] on 06/13/2018 and the pathology report was [...] and currently follows up with endocrinology at [facility]. She has insulin pump. Hospital Course: Patient [...] Units Date/Time CT Abdomen Pelvis Without Contrast [[id number]] Collected: 07/21/182029 Updated: 07/21/182030 Narrative: FINAL REPORT [...] 2 day(s). Specialty: Family Medicine Contact information: [address] [place] [address] [place] [address] Test Results Pending at Discharge: Order Current Status Hemoglobin A1c In process PTH, Intact In process Urine Culture - Urine, Urine, Clean Catch In process Blood Culture With ADITYA - Blood, Arm, Right Preliminary result Jarred Bauman MD 07/22/18 7:47 PM Time spent: 20 min. Dictated utilizing Topioon dictation. documented in this encounter Medications at [...] 06/07/20 24 documented as of this encounter Progress Notes * Chuck Velázquez MD - 07/22/2018 4:34 PM EST Images from the original note were not included. [facility] PROGRESS NOTE Name: Crystal Archer Age: 27 y.o. Sex: female : 1990 Visit Number: [id number] Admission Date: 07/21/2018 Date Of Service: 07/22/18 [...] Units Date/Time CT Abdomen Pelvis Without Contrast [[id number]] Collected: 07/21/182029 Updated: 07/21/182030 Narrative: FINAL REPORT [...] from the original note were not included. [facility] HISTORY AND PHYSICAL Name: Crystal Archer Age: 27 y.o. Sex: female : 1990 Visit Number: [id number] Admission Date: 07/21/2018 Date Of Service: 07/21/18 [...] Patient did have a renal biopsy at [facility] on 06/13/2018 and the pathology report was [...] and currently follows up with endocrinology at [facility]. She has insulin pump. Review Of Systems: [...] injection 1 g (1 g Intravenous Given 07/21/188) cefTRIAXone (ROCEPHIN) IVPB 1 g/50ml dextrose (premix) [...] Units Date/Time CT Abdomen Pelvis Without Contrast [[id number]] Collected: 07/21/182029 Updated: 07/21/182030 Narrative: FINAL REPORT [...] Bauman MD 07/21/18 8:52 PM Dictated utilizing Dragon dictation. documented in this encounter Consult Notes * Ricardo Baker MD, FASN - 07/22/2018 10:28 AM ESTAssociated Order(s): IP CONSULT TO NEPHROLOGY Images from the original note were not included. [facility] Neph[facility] Consultation Referring Provider: Christopher Aggarwal, * [...] kidney disease and lost visit to the lumber tripper the renal function was described as less [...] Component Value Units Date/Time Basic Metabolic Panel [[id number]] (Abnormal) Collected: 07/22/18701 Specimen: Blood Updated: 07/22/18737 Glucose 86 mg/dL BUN 46 mg/dL Creatinine 3.30 mg/dL Sodium 139 mmol/L Potassium 4.8 mmol/L Chloride 116 mmol/L CO2 15.0 mmol/L Calcium 8.1 mg/dL eGFR Non Amer 17 mL/min/1.73 BUN/Creatinine Ratio 13.9 Anion Gap 12.8 mmol/L Narrative: GFR Normal >60 Chronic Kidney Disease <60 Kidney Failure <15 CBC Auto Differential [[id number]] (Abnormal) Collected: 07/22/18701 Specimen: Blood Updated: 07/22/18737 [...] nRBC 0.0 /100 WBC POC Glucose Once [[id number]] (Normal) Collected: 07/22/18645 Specimen: Blood Updated: 07/22/18649 Glucose 92 mg/dL Comment: Serial Number: [id number]: [id number] Procalcitonin [[id number]] (Abnormal) Collected: 07/21/182336 Specimen: Blood Updated: 07/22/18104 [...] 2 ng/mL are obtained. Basic Metabolic Panel [[id number]] (Abnormal) Collected: 07/21/182336 Specimen: Blood Updated: 07/22/18 001 Glucose 103 mg/dL BUN 47 mg/dL Creatinine 3.50 mg/dL Sodium 137 mmol/L Potassium 5.6 mmol/L Chloride 114 mmol/L CO2 12.0 mmol/L Calcium 8.8 mg/dL eGFR Non Amer 16 mL/min/1.73 BUN/Creatinine Ratio 13.4 Anion Gap 16.6 mmol/L Narrative: GFR Normal >60 Chronic Kidney Disease <60 Kidney Failure <15 Lactic Acid, Plasma [[id number]] (Normal) Collected: 07/21/182336 Specimen: Blood Updated: 07/22/18 0007 Lactate 1.0 mmol/L Blood Culture With ADITYA - Blood, Arm, Right [[id number]] Collected: 07/21/18 2344 Specimen: Blood from Arm, Right Updated: 07/21/18 2359 POC Glucose Once [[id number]] (Normal) Collected: 07/21/18 2323 Specimen: Blood Updated: 07/21/18 2330 Glucose 100 mg/dL Comment: Serial Number: [id number]: [id number] Hemoglobin A1c [[id number]] Collected: 07/21/181749 Specimen: Blood Updated: 07/21/18 223 POC Glucose Once [[id number]] (Normal) Collected: 07/21/182145 Specimen: Blood Updated: 07/21/182149 Glucose 90 mg/dL Comment: Serial Number: [id number]: [id number] Urine Culture - Urine, Urine, Clean Catch [[id number]] Collected: 07/21/181749 Specimen: Urine, Clean Catch Updated: 07/21/182123 Urinalysis, Microscopic Only - Urine, Clean Catch [[id number]] (Abnormal) Collected: 07/21/181749 Specimen: Urine, Clean Catch Updated: 07/21/181819 RBC, UA 3-5 /HPF WBC, UA 31-50 /HPF Bacteria, UA 1+ /HPF Squamous Epithelial Cells, UA 0-2 /HPF Hyaline Casts, UA None Seen /LPF WBC Clumps, UA Small/1+ /HPF Methodology Manual Light Microscopy Comprehensive Metabolic Panel [[id number]] (Abnormal) Collected: 07/21/181749 Specimen: Blood Updated: 07/21/181819 [...] Indicated (No Culture) - Urine, Clean Catch [[id number]] (Abnormal) Collected: 07/21/181749 Specimen: Urine, Clean Catch Updated: 07/21/181809 Color, UA Straw Appearance, UA Slightly Cloudy pH, UA 5.5 Specific Kerman, UA 1.025 Glucose, UA Negative Ketones, UA Negative Bilirubin, UA Negative Blood, UA Trace Protein, UA >=300 mg/dL (3+) Leuk Esterase, UA Negative Nitrite, UA Negative Urobilinogen, UA 0.2 E.U./dL , Urine - Urine, Clean Catch [[id number]] (Normal) Collected: 07/21/181749 Specimen: Urine, Clean Catch Updated: 07/21/181805 HCG, Urine QL Negative CBC & Differential [[id number]] Collected: 07/21/181749 Specimen: Blood Updated: 07/21/181804 Narrative: The following orders were created for panel order CBC & Differential. Procedure Abnormality Status --------- ------ CBC Auto Differential[[id number]] Abnormal Final result Please view results for these tests on the individual orders. CBC Auto Differential [[id number]] (Abnormal) Collected: 07/21/181749 Specimen: Blood Updated: 07/21/181804 [...] Units Date/Time CT Abdomen Pelvis Without Contrast [[id number]] Collected: 07/21/182029 Updated: 07/21/182030 Narrative: FINAL REPORT [...] (07/22/18 1427) Assessment/Plan 1. Acute renal failure (CMS/HCC): She denies any use of nonsteroidals used [...] in this encounter Nursing Notes * Allyn Rivas RN - 07/22/2018 7:54 PM EST Pt [...] she is leaving, pt removed telemetry herself. o and m supervisor Rabia informed. IV removed cathlon intact. [...] 15 however recently had renal biopsy at [facility] 05/2018 showing Stage III-IV kidney failure [...] Course User Index [MP] Christopher Aggarwal MD [facility] Final diagnoses: Pyelonephritis, acute Acute renal failure superimposed on chronic kidney disease, unspecified CKD stage, unspecified acute renal failure type ([facility]) Rashard Moody PA-C 07/21/182045 Rashard Moody PA-C 07/22/18 0016 Rashard Moody PA-C 08/05/18 0032 Cosigned by Christopher Aggarwal MD at 08/07/2018 6:59 AM EST Associated attestation - Christopher Aggarwal MD - 08/07/2018 6:59 AM EST For this patient encounter, I reviewed the HOISTING ENGINEER or PA documentation, treatment plan, and [...] - 130 mg/dL 07/22/2018 4:46 PM EST [facility] Comment:Serial Number: [id number]: [id number] Blood 07/22/2018 4:38 PM EST 07/22/2018 4:46 PM EST us Jarred Bauman MD POINT OF CARE TEST ORDERABLES Fi nal Result [facility]
[address] [place] [id number], * (ABNORMAL) POC Glucose Once (07/22/2018 12:08 PM EST) Glucose 233(H) 70 - 130 mg/dL 07/22/2018 12:20 PM EST [facility] Comment:Serial Number: [id number]: [id number] Blood 07/22/2018 12:0 8 PM EST 07/22/2018 12:20 PM EST us Jarred Bauman MD POINT OF CARE TEST ORDERABLES Fi nal Result [facility]
[address] [place] [address], [place] [phone] * (ABNORMAL) PTH, Intact (07/22/2018 7:17 AM EST) Pathologist [facility] PTH, Intact 123(H) 15 - 65 pg/mL 07/24/2018 2:13 PM EST [facility] Blood Venipuncture / Unknown 07/22/2018 7:17 AM EST 07/22/2018 3:23 PM EST Narrative [facility] - 07/24/2018 2:13 PM EST Performed at: ?? [facility] [address], [place], [place] ??[id number] Handbook Writer: Jacob Whaley PhD, Phone: ??[phone] Ricardo Baker MD, FASN LAB BLOOD ORDERABLES Amy l Result Performing Organization Address City/[facility]/ZIP Co de Phone Number [facility] [address] [place] [address], [place] [phone] * (ABNORMAL) CBC Auto Differential (07/22/2018 7:02 AM EST) [facility] WBC 9.72 4.80 - 10.80 10*3/mm3 07/22/2018 7:38 AM [facility] RBC 3.19(L) 4.20 - 5.40 10*6/mm3 07/22/2018 7:38 AM [facility] Hemoglobin 9.2(L) 12.0 - 16.0 g/dL 07/22/2018 7:38 AM [facility] Hematocrit 29.7(L) 37.0 - 47.0 % 07/22/2018 7:38 AM [facility] MCV 93.1 81.0 - 99.0 fL 07/22/2018 7:38 AM [facility] MCH 28.8 27.0 - 31.0 pg 07/22/2018 7:38 AM [facility] MCHC 31.0 30.0 - 37.0 g/dL 07/22/2018 7:38 AM [facility] RDW 12.7 11.5 - 14.5 % 07/22/2018 7:38 AM [facility] RDW-SD 43.6 37.0 - 54.0 fl 07/22/2018 7:38 AM [facility] MPV 13.0(H) 6.0 - 12.0 fL 07/22/2018 7:38 AM [facility] Platelets 206 130 - 400 10*3/mm3 07/22/2018 7:38 AM [facility] Neutrophil % 58.7 37.0 - 80.0 % 07/22/2018 7:38 AM [facility] Lymphocyte % 33.7 10.0 - 50.0 % 07/22/2018 7:38 AM [facility] Monocyte % 5.5 0.0 - 12.0 % 07/22/2018 7:38 AM [facility] Eosinophil % 1.6 0.0 - 7.0 % 07/22/2018 7:38 AM [facility] Basophil % 0.2 0.0 - 2.5 % 07/22/2018 7:38 AM [facility] Immature Grans % 0.3 0.0 - 0.6 % 07/22/2018 7:38 AM [facility] Neutrophils, Absolute 5.70 2.00 - 6.90 10*3/mm3 07/22/2018 7:38 AM [facility] Lymphocytes, Absolute 3.28 0.60 - 3.40 10*3/mm3 07/22/2018 7:38 AM [facility] Monocytes, Absolute 0.53 0.00 - 0.90 10*3/mm3 07/22/2018 7:38 AM [facility] Eosinophils, Absolute 0.16 0.00 - 0.70 10*3/mm3 07/22/2018 7:38 AM [facility] Basophils, Absolute 0.02 0.00 - 0.20 10*3/mm3 07/22/2018 7:38 AM [facility] Immature Grans, Absolute 0.03 0.00 - 0.06 10*3/mm3 07/22/2018 7:38 AM [facility] nRBC 0.0 0.0 - 0.0 /100 WBC 07/22/2018 7:38 AM [facility] Blood Venipuncture / Unknown 07/22/2018 7:02 AM EST 07/22/2018 7:24 AM EST Jarred Bauman MD LAB BLOOD ORDERABLES Final Resul t [facility]
[address] [place] [address], * (ABNORMAL) Basic Metabolic Panel (07/22/2018 7:02 AM EST) Glucose 86 74 - 98 mg/dL 07/22/2018 7:38 AM [facility] BUN 46(H) 7 - 20 mg/dL 07/22/2018 7:38 AM [facility] Creatinine 3.30(H) 0.60 - 1.30 mg/dL 07/22/2018 7:38 AM [facility] Sodium 139 137 - 145 mmol/L 07/22/2018 7:38 AM [facility] Potassium 4.8 3.5 - 5.1 mmol/L 07/22/2018 7:38 AM [facility] Chloride 116(H) 98 - 107 mmol/L 07/22/2018 7:38 AM [facility] CO2 15.0(L) 26.0 - 30.0 mmol/L 07/22/2018 7:38 AM [facility] Calcium 8.1(L) 8.4 - 10.2 mg/dL 07/22/2018 7:38 AM [facility] eGFR Non Amer 17(L) >60 mL/min/1.7 3 07/22/2018 7:38 AM [facility] BUN/Creatinine Ratio 13.9 7.1 - 23.5 07/22/2018 7:38 AM EST [facility] Anion Gap 12.8 10.0 - 20.0 mmol/L 07/22/2018 7:38 AM EST [facility] Blood Venipuncture / Unknown 07/22/2018 7:02 AM EST 07/22/2018 7:24 AM EST Narrative [facility] - 07/22/2018 7:38 AM EST GFR Normal >60 Chronic Kidney Disease <60 Kidney Failure <15 Jarred Bauman MD LAB BLOOD ORDERABLES Final Resul t Performing Organization Address City/[facility]/ZIP Co de Phone Number [facility]
[address] [place] [address], * POC Glucose Once (07/22/2018 6:46 AM EST) Glucose 92 70 - 130 mg/dL 07/22/2018 6:50 AM EST [facility] Comment:Serial Number: [id number]: [id number] Blood 07/22/2018 6:46 AM EST 07/22/2018 6:50 AM EST Phill Gama DO POINT OF CARE TEST ORDERABLES Final Result Performing Organization Address City/[facility]/ZIP Co de Phone Number [facility]
[address] [place] [address], * Blood Culture With ADITYA - Blood, Arm, Right (07/21/2018 11:44 PM EST) Blood Culture No growth at 5 days KIRA 07/27/2018 12:02 AM EST [facility] Blood Right upper arm structure / Unknown Venipuncture / Unknown 07/21/2018 11:44 PM EST 07/21/2018 11:59 PM EST Rashard Moody PA-C MICROBIOLOGY - GEN ERAL ORDERABLES Final Result [facility]
[address] [place] [id number], * (ABNORMAL) Procalcitonin (07/21/2018 11:37 PM EST) Procalcitonin 0.59(H) <=0.25 ng/mL 07/22/2018 1:05 AM EST [facility] Blood Venipuncture / Unknown 07/21/2018 11:37 PM EST 07/21/2018 11:51 PM EST Narrative [facility] - 07/22/2018 1:05 AM EST As [...] < 2 ng/mL are obtained. us Rashard Hough St. Renatuscariello PA-C LAB BLOOD ORDERABL ES Final Result [facility]
[address] [place] [address], * Lactic Acid, Plasma (07/21/2018 11:37 PM EST) Lactate 1.0 0.5 - 2.0 mmol/L 07/22/2018 12:07 AM [facility] Blood Venipuncture / Unknown 07/21/2018 11:37 PM EST 07/21/2018 11:51 PM EST [facility] RenatuscarAdviceme Cosmeticslo PA-C LAB BLOOD ORDERABL ES Final Result Performing Organization Address [facility]/ZIP Co de Phone Number [facility]
[address] [phone], * (ABNORMAL) Basic Metabolic Panel (07/21/2018 11:37 PM EST) Glucose 103(H) 74 - 98 mg/dL 07/22/2018 12:12 AM [facility] BUN 47(H) 7 - 20 mg/dL 07/22/2018 12:12 AM [facility] Creatinine 3.50(H) 0.60 - 1.30 mg/dL 07/22/2018 12:12 AM [facility] Sodium 137 137 - 145 mmol/L 07/22/2018 12:12 AM [facility] Potassium 5.6(HH) 3.5 - 5.1 mmol/L 07/22/2018 12:12 AM [facility] Chloride 114(H) 98 - 107 mmol/L 07/22/2018 12:12 AM [facility] CO2 12.0(L) 26.0 - 30.0 mmol/L 07/22/2018 12:12 AM [facility] Calcium 8.8 8.4 - 10.2 mg/dL 07/22/2018 12:12 AM [facility] eGFR Non Amer 16(L) >60 mL/min/1.7 3 07/22/2018 12:12 AM EST [facility] BUN/Creatinine Ratio 13.4 7.1 - 23.5 07/22/2018 12:12 AM EST [facility] Anion Gap 16.6 10.0 - 20.0 mmol/L 07/22/2018 12:12 AM EST [facility] Blood Venipuncture / Unknown 07/21/2018 11:37 PM EST 07/21/2018 11:51 PM EST Narrative [facility] - 07/22/2018 12:12 AM EST GFR Normal >60 Chronic Kidney Disease <60 Kidney Failure <15 Jarred Bauman MD LAB BLOOD ORDERABLES Final Resul t Performing Organization Address City/[facility] Co de Phone Number [facility]
[address] [place] [address], * POC Glucose Once (07/21/2018 11:23 PM EST) Glucose 100 70 - 130 mg/dL 07/21/2018 11:30 PM EST [facility] Comment:Serial Number: [id number]: [id number] Blood 07/21/2018 11:2 3 PM EST 07/21/2018 11:30 PM EST Phill Gama DO POINT OF CARE TEST ORDERABLES Final Result Performing Organization Address City/[facility]/ZIP Co de Phone Number [facility]
[address] [place] [address], * POC Glucose Once (07/21/2018 9:46 PM EST) Glucose 90 70 - 130 mg/dL 07/21/2018 9:50 PM EST [facility] Comment:Serial Number: [id number] Blood 07/21/2018 9:46 PM EST 07/21/2018 9:50 PM EST us Phillabi Gama DO POINT OF CARE TEST ORDERABLES Final Result [facility]
[address] [place] [address], * CT Abdomen Pelvis Without Contrast (07/21/2018 [...] Hemoglobin A1c (07/21/2018 5:50 PM EST) Pathologist [facility] Hemoglobin A1C 7.8(H) 3 - 6 % 07/24/2018 1:56 AM EST [facility] Blood Venipuncture / Unknown 07/21/2018 5:50 PM EST 07/21/2018 5:57 PM EST Narrative [facility] - 07/24/2018 1:56 AM EST Expected HgbA1C results: ? 3% to 6% HgbA1C HgbA1C ? Estimated Average Glucose 5% ?97 mg/dl 6% ? 126 mg/dl 7% ? 154 mg/dl 8% ? 183 mg/dl 9% ? 212 mg/dl >10% ? >240 mg/dl Jarred Bauman MD LAB BLOOD ORDERABLES Final Resul t [facility]
[address] [id number], * (ABNORMAL) Urine Culture - Urine, Urine, Clean Catch (07/21/2018 5:50 PM EST) Pathologist [facility] Urine Culture >100,000 CFU/mL Escherichia coli(A) KIRA 07/24/2018 7:48 AM EST [facility] Urine Urine specimen collection, clean catch / [...] MICROBIOLOGY - GENERAL ORDERABLE S Final Result [facility]
[address] [place] [id number], [place] [phone] * (ABNORMAL) Urinalysis, Microscopic Only - Urine, Clean Catch (07/21/2018 5:50 PM EST) RBC, UA 3-5(A) None Seen /HPF 07/21/2018 6:20 PM EST [facility] WBC, UA 31-50(A) None Seen /HPF 07/21/2018 6:20 PM [facility] Bacteria, UA 1+(A) None Seen /HPF 07/21/2018 6:20 PM [facility] Squamous Epithelial Cells, UA 0-2 None Seen, 0-2 /HPF 07/21/2018 6:20 PM EST [facility] Hyaline Casts, UA None Seen None Seen /LPF 07/21/2018 6:20 PM [facility] WBC Clumps, UA Small/1+ None Seen /HPF 07/21/2018 6:20 PM [facility] Methodology Manual Light Microscopy 07/21/2018 6:20 PM [facility] Urine Urine specimen collection, clean catch / Unknown Collection / Unknown 07/21/2018 5:50 PM EST 07/21/2018 5:57 PM EST Rashard Moody PA-C URINE ORDERABLES F inal Result [facility]
[address] [id number], * (ABNORMAL) CBC Auto Differential (07/21/2018 5:50 PM EST) WBC 16.02(H) 4.80 - 10.80 10*3/mm3 07/21/2018 6:05 PM [facility] RBC 3.94(L) 4.20 - 5.40 10*6/mm3 07/21/2018 6:05 PM [facility] Hemoglobin 11.5(L) 12.0 - 16.0 g/dL 07/21/2018 6:05 PM [facility] Hematocrit 35.6(L) 37.0 - 47.0 % 07/21/2018 6:05 PM [facility] MCV 90.4 81.0 - 99.0 fL 07/21/2018 6:05 PM [facility] MCH 29.2 27.0 - 31.0 pg 07/21/2018 6:05 PM [facility] MCHC 32.3 30.0 - 37.0 g/dL 07/21/2018 6:05 PM [facility] RDW 12.5 11.5 - 14.5 % 07/21/2018 6:05 PM [facility] RDW-SD 41.1 37.0 - 54.0 fl 07/21/2018 6:05 PM [facility] MPV 13.2(H) 6.0 - 12.0 fL 07/21/2018 6:05 PM [facility] Platelets 243 130 - 400 10*3/mm3 07/21/2018 6:05 PM [facility] Neutrophil % 82.0(H) 37.0 - 80.0 % 07/21/2018 6:05 PM [facility] Lymphocyte % 11.2 10.0 - 50.0 % 07/21/2018 6:05 PM [facility] Monocyte % 4.7 0.0 - 12.0 % 07/21/2018 6:05 PM [facility] Eosinophil % 1.5 0.0 - 7.0 % 07/21/2018 6:05 PM [facility] Basophil % 0.2 0.0 - 2.5 % 07/21/2018 6:05 PM [facility] Immature Grans % 0.4 0.0 - 0.6 % 07/21/2018 6:05 PM [facility] Neutrophils, Absolute 13.12(H) 2.00 - 6.90 10*3/mm3 07/21/2018 6:05 PM [facility] Lymphocytes, Absolute 1.79 0.60 - 3.40 10*3/mm3 07/21/2018 6:05 PM [facility] Monocytes, Absolute 0.76 0.00 - 0.90 10*3/mm3 07/21/2018 6:05 PM [facility] Eosinophils, Absolute 0.24 0.00 - 0.70 10*3/mm3 07/21/2018 6:05 PM [facility] Basophils, Absolute 0.04 0.00 - 0.20 10*3/mm3 07/21/2018 6:05 PM [facility] Immature Grans, Absolute 0.07(H) 0.00 - 0.06 10*3/mm3 07/21/2018 6:05 PM [facility] nRBC 0.0 0.0 - 0.0 /100 WBC 07/21/2018 6:05 PM [facility] Blood Venipuncture / Unknown 07/21/2018 5:50 PM EST 07/21/2018 5:57 PM EST Rashard Gianluca Moody PA-C LAB BLOOD ORDERABL ES Final Result Performing Organization Address City/[facility]/ZIP Co de Phone Number [facility]
[address] [place] [address], [place] [phone] * , Urine - Urine, Clean Catch (07/21/2018 5:50 PM EST) HCG, Urine QL Negative Negative 07/21/2018 6:06 PM [facility] Urine Urine specimen collection, clean catch / Unknown Collection / Unknown 07/21/2018 5:50 PM EST 07/21/2018 5:57 PM EST [address]luca [facility] Renatusyrniello PA-C URINE ORDERABLES F inal Result Performing Organization Address City/[facility]/ZIP Co de Phone Number [facility]
[address] [place] [address], [place] [phone] * (ABNORMAL) Urinalysis With Microscopic If Indicated (No Culture) - Urine, Clean Catch (07/21/2018 5:50 PM EST) Color, UA Straw Yellow, Straw 07/21/2018 6:10 PM [facility] Appearance, UA Slightly Cloudy(A) Clear 07/21/2018 6:10 PM [facility] pH, UA 5.5 5.0 - 8.0 07/21/2018 6:10 PM [facility] Specific [place], UA 1.025 1.005 - 1.030 07/21/2018 6:10 PM EST [facility] Glucose, UA Negative Negative 07/21/2018 6:10 PM EST [facility] Ketones, UA Negative Negative 07/21/2018 6:10 PM EST [facility] Bilirubin, UA Negative Negative 07/21/2018 6:10 PM EST [facility] Blood, UA Trace(A) Negative 07/21/2018 6:10 PM EST [facility] Protein, UA >=300 mg/dL (3+)(A) Negative 07/21/2018 6:10 PM EST [facility] Leuk Esterase, UA Negative Negative 07/21/2018 6:10 PM EST [facility] Nitrite, UA Negative Negative 07/21/2018 6:10 PM [facility] LABORATORY Urobilinogen, UA 0.2 E.U./dL 0.2 - 1.0 E.U./dL 07/21/2018 6:10 PM EST [facility] Urine Urine specimen collection, clean catch / Unknown Collection / Unknown 07/21/2018 5:50 PM EST 07/21/2018 5:57 PM EST Rashard Moody PA-C URINE ORDERABLES F inal Result [facility]
[address] [place] [address], * (ABNORMAL) Comprehensive Metabolic Panel (07/21/2018 5:50 PM EST) Glucose 105(H) 74 - 98 mg/dL 07/21/2018 6:20 PM EST [facility] BUN 52(H) 7 - 20 mg/dL 07/21/2018 6:20 PM [facility] Creatinine 3.40(H) 0.60 - 1.30 mg/dL 07/21/2018 6:20 PM EST [facility] Sodium 139 137 - 145 mmol/L 07/21/2018 6:20 PM EST [facility] Potassium 6.2(HH) 3.5 - 5.1 mmol/L 07/21/2018 6:20 PM [facility] Chloride 113(H) 98 - 107 mmol/L 07/21/2018 6:20 PM [facility] CO2 16.0(L) 26.0 - 30.0 mmol/L 07/21/2018 6:20 PM [facility] Calcium 9.5 8.4 - 10.2 mg/dL 07/21/2018 6:20 PM [facility] Total Protein 7.8 6.3 - 8.2 g/dL 07/21/2018 6:20 PM [facility] Albumin 4.60 3.50 - 5.00 g/dL 07/21/2018 6:20 PM [facility] ALT (SGPT) 26 13 - 69 U/L 07/21/2018 6:20 PM [facility] AST (SGOT) 16 15 - 46 U/L 07/21/2018 6:20 PM [facility] Alkaline Phosphatase 71 38 - 126 U/L 07/21/2018 6:20 PM [facility] Total Bilirubin 0.3 0.2 - 1.3 mg/dL 07/21/2018 6:20 PM [facility] eGFR Non Amer 16(L) >60 mL/min/1.7 3 07/21/2018 6:20 PM [facility] Globulin 3.2 gm/dL 07/21/2018 6:20 PM [facility] A/G Ratio 1.4 1.0 - 2.0 g/dL 07/21/2018 6:20 PM [facility] BUN/Creatinine Ratio 15.3 7.1 - 23.5 07/21/2018 6:20 PM [facility] Anion Gap 16.2 10.0 - 20.0 mmol/L 07/21/2018 6:20 PM [facility] Blood Venipuncture / Unknown 07/21/2018 5:50 PM EST 07/21/2018 5:57 PM EST Narrative [facility] - 07/21/2018 6:20 PM EST GFR Normal >60 Chronic Kidney Disease <60 Kidney Failure <15 Rashard Moody PA-C LAB BLOOD ORDERABL ES Final Result [facility]
[address] [place] [address], * RI APPLICATION SHORT ARM SPLINT FOREARM-HAND STATIC (07/21/2018 [...] TELEMETRY (07/21/2018) Anatomical Region Laterality Modality Other [facility] Onbase ECG ORDERABLES Final Result documented [...] 40 mg, Oral, Daily, First dose on 07/22/18 at 0900, Avoid grapefruit juice. Given 07/22/2018 [...] alike drug alert, Indications: Urinary Tract Infection 193 (New Bag - Provider: Erica Campbell, RN)2016 [...] 0910 (Given - Provider: Manuel Torres, RN) sodium bicarbonate tablet 650 mg 650 mg, [...]
--- OUTSIDE RECORDS SUMMARY | 2024-06-11 08:38 | XMS_ITS | Encounter Summary ---
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 [address] [place] [id number] Ibrahima Talamantes MD Social History Tobacco Use [...]
--- OUTSIDE RECORDS SUMMARY | 2024-06-11 08:38 | XMS_ITS | Encounter Summary ---
Author Organization [facility] Address [address] [place] [address] Care Team Providers Care Perfume Maker Name Role Phone Unavailable Primary Care Provider Unavailabl e Reason for Visit * Reason Comments Cough Nasal Congestion Encounter Details Date Type Department Care Team (Late st Contact Info) Description 03/14/2018 10:11 PM EDT - 03/14/2018 10:59 PM EDT Emergency [facility] EMERGENCY DE[facility] [address] [place] [phone] Dominik Rizo MD [address] [facility] [address] [place] [address] Nasal congestion (Primary Dx); Nausea and vomiting, [...] through Care Everywhere. * Oxymetazoline nasal spray (Danish) documented in this encounter Medications at Time [...] unspecified vomiting type Dominik Rizo MD 03/14/18 8421 documented in this encounter Plan of Treatment [...] Place on tongue and allow to dissolve. 2247 (Given - Provid er: Bing Tomlin RN) oxymetazoline (AFRIN) nasal spray 2 spray (COMPLETED) 2 spray, Each Nare, Once, On Tue03/14/18 at 2245, For 1 dose, ?? {BKC} 2247 (Given - Provid er: Bing Tomlin RN) documented in this encounter
--- OUTSIDE RECORDS SUMMARY | 2024-06-11 08:38 | XMS_ITS | Encounter Summary ---
[facility] [address] [place] [address] Care Team Providers Care Pre Certification Specialist Name Role Phone Unavailable Primary Care Provider Unavailabl e Reason for Visit * (Emergency) - Closed Specialty Diagnoses / Procedures Referred By Xochitl t Referred To Contact Radiology Diagnoses Right upper limb pain Procedures XR Hand 3+ View Right Thomas, Fabiola Villafuerte MD [address] [place] [phone] Phone: tel: fax: Referral ID Status Reason Start Date Expiration Date Visits Re quested Visits Authorized [id number] Closed 02/15/2018 02/15/2019 1 1 Encounter Details Date Type Department Care Team (Latest Contact Info) Description 02/15/2018 5:39 PM EDT - 02/15/2018 11:59 PM EDT Hospital Encounter [facility] XRAY [address] [place] [address] Discharge Disposition: Home or Self [...] injections per day. 8 lisinopril (PRINIVIL,ZESTRI L) 10 MG tablet Takes 20mg daily 0 12/23/2015 4 lisinopril (PRINIVIL,ZESTRI L) 20 MG tablet Take [...] Laterality Modality Upper Extremities, Hand Right Radiogra [facility] Imaging 02/15/2018 5:54 PM EDT Impressions [...]
--- OUTSIDE RECORDS SUMMARY | 2024-06-11 08:38 | XMS_ITS | Encounter Summary ---
Author Organization [facility]stem Address [address] [place] [address] Care Team Providers Care Emergency Manager Name Role Phone Unavailable Primary Care Provider Unavailabl e Reason for Visit * Reason Comments Hyperglycemia Encounter Details Date Type Department Care Team (Late st Contact Info) Description 03/30/2018 4:35 PM EDT - 03/30/2018 8:20 PM EDT Emergency [facility] EMERGENCY DEPART[facility] [address] [place] [phone] Dominik Rizo MD [address] [place] [address] Hyperglycemia (Primary Dx); Other specified diabetes mellitus [...] Care Everywhere. * Blood Glucose Monitoring Adult (Zimbabwean) documented in this encounter Medications at [...] ROSEMARY Sevilla MD notified Roxann Gunderson RN 03/30/181717 * Dominik Rizo MD - 03/30/2018 5:09 [...] insulin a day. Then she saw an corporate legal manager at [facility] who put her on 2 shots [...] Chronic constipation ??? Depression ??? Diabetes mellitus ([facility]) ??? Excessive thirst ??? H/O mammogram 2014 [...] complication, with long-term current use of insulin ([facility]) Dominik Rizo MD 04/07/18 0702 documented in [...] - 130 mg/dL 03/31/2018 4:35 AM EDT [facility] Comment:Serial Number: [id number]: [id number] Blood 03/30/2018 7:58 PM EDT 03/31/2018 4:35 AM EDT us Dominik Rizo MD POINT OF CARE TEST ORDERABLES Final Result Performing Organization Address [facility]/ZIP Co de Phone Number [facility]
[address] [place] [address], * (ABNORMAL) POC Glucose Once (03/30/2018 6:07 PM EDT) Glucose 534(HH) 70 - 130 mg/dL 03/31/2018 4:31 AM EDT [facility] Comment:Serial Number: [id number]: [id number] Blood 03/30/2018 6:07 PM EDT 03/31/2018 4:30 AM EDT us Dominik Rizo MD POINT OF CARE TEST ORDERABLES Final Result Performing Organization Address [facility] Co de Phone Number [facility]
[address] [place] [address], [place] [phone] * (ABNORMAL) POC Glucose Once (03/30/2018 5:18 PM EDT) Glucose 570(HH) 70 - 130 mg/dL 03/31/2018 4:30 AM EDT [facility] Comment:Serial Number: [id number]: [id number] Blood 03/30/2018 5:18 PM EDT 03/31/2018 4:30 AM EDT us Dominik Rizo MD POINT OF CARE TEST ORDERABLES Final Result [facility]
[address] [place] [address], [place] [phone] * (ABNORMAL) Urinalysis, Microscopic Only - Urine, Clean Catch (03/30/2018 5:02 PM EDT) RBC, UA 3-5(A) None Seen /HPF 03/30/2018 5:43 PM EDT [facility] WBC, UA 3-5(A) None Seen /HPF 03/30/2018 5:43 PM EDT [facility] Bacteria, UA 2+(A) None Seen /HPF 03/30/2018 5:43 PM EDT [facility] Squamous Epithelial Cells, UA 7-12(A) None Seen, 0-2 /HPF 03/30/2018 5:43 PM EDT [facility] Hyaline Casts, UA None Seen None Seen /LPF 03/30/2018 5:43 PM EDT [facility] Methodology Manual Light Microscopy 03/30/2018 5:43 PM EDT [facility] Urine Urine specimen collection, clean catch / Unknown Collection / Unknown 03/30/2018 5:02 PM EDT 03/30/2018 5:11 PM EDT us Triage Protocol Emergency MD URINE ORDERABLES Fi nal Result [facility]
[address] [place] [address], * (ABNORMAL) Urinalysis With Microscopic If Indicated (No Culture) - Urine, Clean Catch (03/30/2018 5:02 PM EDT) Color, UA Straw Yellow, Straw 03/30/2018 5:40 PM EDT [facility] Appearance, UA Clear Clear 03/30/2018 5:40 PM EDT [facility] pH, UA 6.0 5.0 - 8.0 03/30/2018 5:40 PM EDT [facility] Specific [place], UA 1.020 1.005 - 1.030 03/30/2018 5:40 PM EDT [facility] Glucose, UA >=1000 mg/dL (3+)(A) Negative 03/30/2018 5:40 PM EDT [facility] Ketones, UA Negative Negative 03/30/2018 5:40 PM EDT [facility] Bilirubin, UA Negative Negative 03/30/2018 5:40 PM EDT [facility] Blood, UA Small (1+)(A) Negative 03/30/2018 5:40 PM EDT [facility] Protein, UA >=300 mg/dL (3+)(A) Negative 03/30/2018 5:40 PM EDT [facility] Leuk Esterase, UA Negative Negative 03/30/2018 5:40 PM EDT [facility] Nitrite, UA Negative Negative 03/30/2018 5:40 PM EDT [facility] Urobilinogen, UA 0.2 E.U./dL 0.2 - 1.0 E.U./dL 03/30/2018 5:40 PM EDT [facility] Urine Urine specimen collection, clean catch / Unknown Collection / Unknown 03/30/2018 5:02 PM EDT 03/30/2018 5:11 PM EDT us Triage Protocol Emergency MD URINE ORDERABLES Fi nal Result [facility]
[address] [place] [phone], * (ABNORMAL) CBC Auto Differential (03/30/2018 4:54 PM EDT) WBC 9.73 4.80 - 10.80 10*3/mm3 03/30/2018 5:02 PM EDT [facility] RBC 4.28 4.20 - 5.40 10*6/mm3 03/30/2018 5:02 PM EDT [facility] Hemoglobin 12.4 12.0 - 16.0 g/dL 03/30/2018 5:02 PM EDT [facility] Hematocrit 36.6(L) 37.0 - 47.0 % 03/30/2018 5:02 PM EDT [facility] MCV 85.5 81.0 - 99.0 fL 03/30/2018 5:02 PM EDT [facility] MCH 29.0 27.0 - 31.0 pg 03/30/2018 5:02 PM EDT [facility] MCHC 33.9 30.0 - 37.0 g/dL 03/30/2018 5:02 PM EDT [facility] RDW 11.9 11.5 - 14.5 % 03/30/2018 5:02 PM EDT [facility] RDW-SD 37.1 37.0 - 54.0 fl 03/30[facility]2018 [facility] MPV 12.8(H) 6.0 - 12.0 fL 03/30/2018 5:02 PM EDT [facility] Platelets 230 130 - 400 10*3/mm3 03/30/2018 5:02 PM EDT [facility] Neutrophil % 57.9 37.0 - 80.0 % 03/30/2018 5:02 PM EDT [facility] Lymphocyte % 33.4 10.0 - 50.0 % 03/30/2018 5:02 PM EDT [facility] Monocyte % 4.8 0.0 - 12.0 % 03/30/2018 5:02 PM EDT [facility] Eosinophil % 3.0 0.0 - 7.0 % 03/30/2018 5:02 PM EDT [facility] Basophil % 0.5 0.0 - 2.5 % 03/30/2018 5:02 PM EDT [facility] Immature Grans % 0.4 0.0 - 0.6 % 03/30/2018 5:02 PM EDT [facility] Neutrophils, Absolute 5.63 2.00 - 6.90 10*3/mm3 03/30/2018 5:02 PM EDT [facility] Lymphocytes, Absolute 3.25 0.60 - 3.40 10*3/mm3 03/30/2018 5:02 PM EDT [facility] Monocytes, Absolute 0.47 0.00 - 0.90 10*3/mm3 03/30/2018 5:02 PM EDT [facility] Eosinophils, Absolute 0.29 0.00 - 0.70 10*3/mm3 03/30/2018 5:02 PM EDT [facility] Basophils, Absolute 0.05 0.00 - 0.20 10*3/mm3 03/30/2018 5:02 PM EDT [facility] Immature Grans, Absolute 0.04 0.00 - 0.06 10*3/mm3 03/30/2018 5:02 PM EDT [facility] nRBC 0.0 0.0 - 0.0 /100 WBC 03/30/2018 5:02 PM EDT [facility] Blood Venipuncture / Unknown 03/30/2018 4:54 PM EDT 03/30/2018 4:57 PM EDT us Triage Protocol Emergency MD LAB BLOOD ORDERABLE S Final Result [facility]
[address] [place] [address], [place] [phone] * Gold Top - SST (03/30/2018 4:54 PM EDT) Extra Tube Hold for add-ons. 03/30/2018 6:00 PM EDT [facility] Comment:Auto resulted. Blood Venipuncture / Unknown 03/30/2018 4:54 PM EDT 03/30/2018 4:57 PM EDT us Triage Protocol Emergency MD LAB BLOOD ORDER ONL Y Final Result [facility]
[address] [place] [address], [place] [phone] * Lavender Top (03/30/2018 4:54 PM EDT) Extra Tube hold for add-on 03/30/2018 6:00 PM EDT [facility] Comment:Auto resulted Blood Venipuncture / Unknown 03/30/2018 4:54 PM EDT 03/30/2018 4:57 PM EDT Triage Protocol Emergency MD LAB BLOOD ORDER ONL Y Final Result Performing Organization Address City/[facility]/ZIP Co de Phone Number [facility]
[address] [place] [address], * Light Blue Top (03/30/2018 4:54 PM EDT) Extra Tube hold for add-on 03/30/2018 6:00 PM EDT [facility] Comment:Auto resulted Blood Venipuncture / Unknown 03/30/2018 4:54 PM EDT 03/30/2018 4:57 PM EDT Triage Protocol Emergency MD LAB BLOOD ORDER ONL Y Final Result Performing Organization Address City/[facility]/ZIP Co de Phone Number [facility]
[address] [place] [address], [place] [phone] * (ABNORMAL) Comprehensive Metabolic Panel (03/30/2018 4:54 PM EDT) Glucose 613(HH) 74 - 98 mg/dL 03/30/2018 5:41 PM EDT [facility] Comment:Glucose >180, Hemogl obin A1C recommended. BUN 29(H) 7 - 20 mg/dL 03/30/2018 5:41 PM EDT [facility] Creatinine 1.80(H) 0.60 - 1.30 mg/dL 03/30/2018 5:41 PM EDT [facility] Sodium 129(L) 137 - 145 mmol/L 03/30/2018 5:41 PM EDT [facility] Potassium 5.0 3.5 - 5.1 mmol/L 03/30/2018 5:41 PM EDT [facility] Chloride 96(L) 98 - 107 mmol/L 03/30/2018 5:41 PM T [facility] CO2 22.0(L) 26.0 - 30.0 mmol/L 03/30/2018 5:[facility] Calcium 9.0 8.4 - 10.2 mg/dL 03/30/2018 5:41 PM [facility] Total Protein 7.1 6.3 - 8.2 g/dL 03/30/2018 5:41 PM T [facility] Albumin 3.80 3.50 - 5.00 g/dL 03/30/2018 5:41 PM [facility] ALT (SGPT) 23 13 - 69 U/L 03/30/2018 5:41 PM [facility] AST (SGOT) 14(L) 15 - 46 U/L 03/30/2018 5:41 PM [facility] Alkaline Phosphatase 142(H) 38 - 126 U/L 03/30/2018 5:41 PM [facility] Total Bilirubin 0.2 0.2 - 1.3 mg/dL 03/30/2018 5:41 PM [facility] eGFR Non Amer 34(L) >60 mL/min/1.7 3 03/30/2018 5:41 PM [facility] Globulin 3.3 gm/dL 03/30/2018 5:41 PM [facility] A/G Ratio 1.2 1.0 - 2.0 g/dL 03/30/2018 5:41 PM [facility] BUN/Creatinine Ratio 16.1 7.1 - 23.5 03/30/2018 5:41 PM [facility] Anion Gap 16.0 10.0 - 20.0 mmol/L 03/30/2018 5:41 PM [facility] Blood Venipuncture / Unknown 03/30/2018 4:54 PM EDT 03/30/2018 4:57 PM EDT [facility] - 03/30/2018 5:41 PM EDT GFR Normal >60 Chronic Kidney Disease <60 Kidney Failure <15 us Triage Protocol Emergency MD LAB BLOOD ORDERABLE S Final Result [facility]
[address] [place] [address], [place] [phone] documented in this encounter Visit Diagnoses Diagnosis [...]
--- OUTSIDE RECORDS SUMMARY | 2024-06-11 08:38 | XMS_ITS | Encounter Summary ---
[facility] Address [address] [place] [address] Care Team Providers Care Mercerizer Machine Operator Name Role Phone Unavailable Primary Care Provider Unavailabl e Reason for Visit * (Emergency) - Closed Specialty Diagnoses / Procedures Referred By Xochitl t Referred To Contact Radiology Diagnoses Pain in joint, multiple sites Procedures XR Knee 3 View Left Fabiola Guzman MD [address] [place] [phone] Phone: tel: fax: Referral ID Status Reason Start Date Expiration Date Visits Re quested Visits Authorized [id number] Closed 02/15/2018 02/15/2019 1 1 Encounter Details Date Type Department Care Team (Latest Contact Info) Description 02/15/2018 5:35 PM EDT - 02/15/2018 11:59 PM EDT Hospital Encounter [facility] XRAY [address] [place] [address] Fabiola Guzman MD [address] [place] [phone] Discharge Disposition: Home or Self Care [...] Extremities, Knee Left [facility] 02/15/2018 5:53 PM EDT Impressions [...]
--- OUTSIDE RECORDS SUMMARY | 2024-06-11 08:38 | XMS_ITS | Encounter Summary ---
[facility] Address [address] [place] [address] Care Team Providers Care Diet Clerk Name Role Phone Unavailable Primary Care Provider Unavailabl e Encounter Details Date Type Department Care Team (Late st Contact Info) Description 06/18/2018 Readmission Management [facility] [address] [place] [phone] Oliva Sherman, RN Social History Tobacco [...] Week 1 [facility] [...]
--- OUTSIDE RECORDS SUMMARY | 2024-06-11 08:38 | XMS_ITS | Encounter Summary ---
[facility] Address [address] [place] [address] Care Team Providers Care Hull Drafter Name Role Phone Unavailable Primary Care Provider Unavailabl e Reason for Visit * (Emergency) - Closed Specialty Diagnoses / Procedures Referred By Xochitl t Referred To Contact Radiology Diagnoses Pain in finger of left hand Procedures XR hand 3+ vw left Fabiola Guzman MD [address] [place] [phone] Phone: tel: fax: Referral ID Status Reason Start Date Expiration Date Visits Re quested Visits Authorized [id number] Closed 04/24/2018 04/24/2019 1 1 Encounter Details Date Type Department Care Team (Latest Contact Info) Description 04/24/2018 11:35 AM EDT - 04/24/2018 11:59 PM EDT Hospital Encounter [facility] XRAY [address] [place] [address] Fabiola Guzman MD [address] [place] [phone] Discharge Disposition: Home or Self Care [...] 04/24/2018 12:09 PM by Brittny Lacey M.D.. Fabiola Guzman MD IMG DIAGNOSTIC IMAGING ORDER BERTIN Final Result documented in this encounter Visit Diagnoses Not on filedocumented in this encounter
--- OUTSIDE RECORDS SUMMARY | 2024-06-11 08:38 | XMS_ITS | Encounter Summary ---
Author Organization [facility] Address [address] [place] [address] Care Team Providers Care Electronic Semiconductor Processor Name Role Phone Unavailable Primary Care Provider Unavailabl e Reason for Visit * (Routine) - Closed Specialty Diagnoses / Procedures Referred By Xochitl t Referred To Contact Radiology Diagnoses Right knee pain, unspecified chronicity Procedures XR Knee 3 View Right Fabiola Guzman MD [address] [place] [phone] Phone: tel: fax: Referral ID Status Reason Start Date Expiration Date Visits Re quested Visits Authorized [id number] Closed 02/06/2018 02/06/2019 1 1 Encounter Details Date Type Department Care Team (Latest Contact Info) Description 02/06/2018 12:45 PM EDT - 02/06/2018 11:59 PM EDT Hospital Encounter [facility] XRAY [address] [place] [address] Fabiola Guzman MD [address] [place] [address] Discharge Disposition: Home or Self Care [...] Brittny Lacey M.D.. Fabiola Guzman MD [facility] DIAGNOSTIC IMAGING ORDER BERTIN Final Result * [...] Brittny Lacey M.D.. Fabiola Guzman MD [facility] DIAGNOSTIC IMAGING ORDER BERTIN Final Result documented in this encounter Visit Diagnoses Not on filedocumented in this encounter
--- OUTSIDE RECORDS SUMMARY | 2024-06-11 08:38 | XMS_ITS | Encounter Summary ---
[facility] Address [address] [place] [id number] Care Team Providers Care Rubber Compounder Mixer Name Role Phone Unavailable Primary Care Provider Unavailabl e Reason for Referral * Diagnostic Imaging (Routine) - Closed Specialty Diagnoses / Procedures Referred By Xochitl burt Referred To Contact Radiology Diagnoses Acute renal failure, unspecified acute renal failure type Procedures CT Needle Biopsy Kidney Renal Ibrahima Talamantes MD [address] [address] Phone: tel: Referral ID Status Reason Start Date Expiration Date Visits Re quested Visits Authorized [id number] Closed 05/22/2018 05/22/2019 1 1 Reason for Visit * Auth/Cert Specialty Diagnoses / Procedures Referred By Xochitl burt Referred To Contact Diagnoses Acute renal failure, unspecified acute renal failure type Acute renal failure, unspecified acute renal failure type Procedures CT NEEDLE BIOPSY KIDNEY RENAL Referral ID Status Reason Start Date Expiration Date Visits Re quested Visits Authorized [id number] 1 1 Encounter Details Date Type Department Care Team (Latest Contact Info) Description 06/13/2018 8:21 AM EST - 06/14/2018 12:52 PM EST Hospital Encounter [address] [address] Ibrahima Talamantes MD Acute renal [...] Center 06/19/2018 10:00 AM Ritika Antoine PA-C [facility] None Test Results Pending at [...] TAKE 1 TABLET EVERY DAY 0 12/23/2015 sodium bicarbonate 650 MG tablet Take 2 tablets by mouth 2 (Two) Times a Day. 240 tablet 1 06/14/2018 fenofibrate (TRICOR) 145 MG tablet Take 160 mg by mouth Every Other Day. 3 gabapentin (NEURONTIN) 300 MG capsule BID 0 12/23/2015 3 HUMALOG 100 UNIT/ML injection USE DIRECTED PER INSULIN PUMP THERAPY.MAXIMU M DAILY DOSE OF 150 UNITS 0 12/23/2015 9 lisinopril (PRINIVIL,ZESTRIL) 10 MG tablet Takes 20mg daily 0 12/23/2015 4 ondansetron ODT (ZOFRAN-ODT) 4 MG disintegrating tablet Take 1 tablet by mouth Every 6 (Six) Hours As Needed for Nausea or Vomiting. 20 tablet 03/14/2018 4 documented as of this encounter Progress Notes * Odette Watkins, RN - 06/14/2018 12:25 PM EST Discharge Planning Assessment [facility] Patient Name: Crystal Archer Today's Date: 06/14/2018 Admit Date: 06/13/2018 Discharge Needs Assessment Row Name 06/14/18 2692 Living Environment Lives With child(karlo), dependent;significant other [...] Discharge none Discharge Plan Row Name 06/14/18 8533 Plan Plan Plan is home with Fiance [...] Kidney, Left TISSUE PATHOLOGY EXAM Shannon Lockwood 06/13/2018 1328 Complications: None; patient tolerated the [...] through the night. Goal: Individualization and Mutuality 06/14/18349 Individualization Patient Specific Goals (Include Timeframe) Tolerable level of pain Patient Specific Interventions monitor pain q2h and PRN, give analgesics as needed Goal: Interprofessional Rounds/Family Conf 06/14/18349 Interdisciplinary Rounds/Family Conf Participants patient Problem: Kidney Disease, Chronic/End Stage Renal Disease (Adult) Goal: Signs and Symptoms of Listed Potential Problems Will be Absent, Minimized or Managed (Kidney Disease, Chronic/End Stage Renal Disease) 06/13/18 6289 06/14/18 035 Goal/Outcome Evaluation Problems Assessed (Chronic Kidney Disease/ESRD) -- all Problems Present (Chronic Kidney/ESRD) none -- * Laeh Aldrich RN - 06/13/2018 5:51 PM EST [...] Zee RN - 06/13/2018 5:08 PM EST environmental compliance officer reports to room after pt began getting upset about orders. Pt upset that she has diet restrictions, Pt eats whatever she wants at home and wishes to here as well. Pt also does not wish to be on bedrest as ordered. environmental compliance officer spoke to this evening to inform. MD states will not change orders and encourages pt to stay due to risk of bleeding. environmental compliance officer spoke to pt again. Pt states understanding risk for bleeding. Pt agrees to not go all the way into bathroom but will use BSC stating she is unable to use a bedpan. environmental compliance officer encourages pt to use bedpan to follow orders. Pt states will send visitor in room with her to get food for her. environmental compliance officer encouraged pt to follow MD orders. Pt [...] - 130 mg/dL 06/14/2018 8:22 AM EST [facility] Blood 06/14/2018 8:20 AM EST 06/14/2018 8:22 AM EST Ibrahima Talamantes MD POINT OF CARE TEST ORD ERABLES Final Result [facility]
[address] [place] [address], * (ABNORMAL) Hemoglobin (06/14/2018 5:12 AM EST) Hemoglobin 10.4(L) 11.5 - 15.5 g/dL 06/14/2018 5:51 AM EST [facility] Blood Venipuncture / Unknown 06/14/2018 5:12 AM EST 06/14/2018 5:32 AM EST Holden Lamin Sands MD LAB BLOOD ORDERABLES Amy kellen Result [facility]
[address] [place] [address], * (ABNORMAL) Basic Metabolic Panel (06/14/2018 5:12 AM EST) Glucose 178(H) 70 - 100 mg/dL 06/14/2018 6:07 AM EST [facility] BUN 38(H) 9 - 23 mg/dL 06/14/2018 6:07 AM EST [facility] Creatinine 2.69(H) 0.60 - 1.30 mg/dL 06/14/2018 6:07 AM EST [facility] Sodium 139 132 - 146 mmol/L 06/14/2018 6:07 AM EST [facility] Potassium 5.3 3.5 - 5.5 mmol/L 06/14/2018 6:07 AM EST [facility] Chloride 115(H) 99 - 109 mmol/L 06/14/2018 6:07 AM EST [facility] CO2 18.0(L) 20.0 - 31.0 mmol/L 06/14/2018 6:07 AM EST [facility] Calcium 8.3(L) 8.7 - 10.4 mg/dL 06/14/2018 6:07 AM EST [facility] eGFR Non Amer 21(L) >60 mL/min/1.7 3 06/14/2018 6:07 AM EST [facility] BUN/Creatinine Ratio 14.1 7.0 - 25.0 06/14/2018 6:07 AM EST [facility] Anion Gap 6.0 3.0 - 11.0 mmol/L 06/14/2018 6:07 AM EST [facility] Blood Venipuncture / Unknown 06/14/2018 5:12 AM EST 06/14/2018 5:32 AM EST Narrative [facility] - 06/14/2018 6:07 AM EST [...] ORDERABLES Amy l Result Performing Organization Address [facility] de Phone Number [facility]
[address] [place] [address], * (ABNORMAL) POC Glucose Once (06/13/2018 8:58 PM EST) Glucose 211(H) 70 - 130 mg/dL 06/13/2018 9:10 PM EST [facility] Blood 06/13/2018 8:58 PM EST 06/13/2018 9:10 PM EST Ibrahima Talamantes MD POINT OF CARE TEST ORD ERABLES Final Result Performing Organization Address [facility] de Phone Number [facility]
[address] [place] [address], * (ABNORMAL) Hemoglobin (06/13/2018 8:15 PM EST) Hemoglobin 9.9(L) 11.5 - 15.5 g/dL 06/13/2018 8:22 PM EST [facility] Blood Venipuncture / Unknown 06/13/2018 8:15 PM EST 06/13/2018 8:20 PM EST Adina Sands MD LAB BLOOD ORDERABLES Amy l Result Performing Organization Address [facility] de Phone Number [facility]
[address] [place] [address], * (ABNORMAL) Hemoglobin (06/13/2018 5:40 PM EST) Hemoglobin 10.1(L) 11.5 - 15.5 g/dL 06/13/2018 6:06 PM EST [facility] Blood Venipuncture / Unknown 06/13/2018 5:40 PM EST 06/13/2018 6:01 PM EST Adina Sands MD LAB BLOOD ORDERABLES Amy l Result [facility]
[address] [place] [address], * ECG 12 Lead (06/13/2018 4:29 PM [...] ORDERABLES Final Res ult Performing Organization Address [facility] Co de Phone Number ECG * (ABNORMAL) POC Glucose Once (06/13/2018 3:52 PM EST) Glucose 204(H) 70 - 130 mg/dL 06/13/2018 3:54 PM EST [facility] Blood 06/13/2018 3:52 PM EST 06/13/2018 3:54 PM EST Ibrahima Talamantes MD POINT OF CARE TEST ORD ERABLES Final Result Performing Organization Address [facility] de Phone Number [facility]
[address] [place] [address], * POC Glucose Once (06/13/2018 1:49 PM EST) Glucose 84 70 - 130 mg/dL 06/13/2018 1:54 PM EST [facility] Blood 06/13/2018 1:49 PM EST 06/13/2018 1:54 PM EST Ibrahima Talamantes MD POINT OF CARE TEST ORD ERABLES Final Result Performing Organization Address [facility] de Phone Number [facility]
[address] [place] [address], * CT Needle Biopsy Kidney Renal (06/13/2018 [...] 3:[address] Mukul Valles MD. us Ibrahima Talamantes MD IMG CT ORDERABLES Amy l Result * Tissue Pathology Exam (06/13/2018 1:28 PM EST) Case Report Surgical Pathology Report ? Case: [id number] ? Authorizing Provider: ??Albin, Ibrahima Branch, ?? Collected: ? 06/13/2018 01:28 PM ? MD ? Ordering Location: ? [facility] ?? Received: ?06/13/2018 01:52 PM ? 4D ? Pathologist: ? Cb Cohn, MD ? Specimen: ?Kidney, Left ? 06/29/2018 12:05 PM EST [facility] Kidney Biopsy Report, Addendum Testing performed at outside laboratory. See scanned report. 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 Patchy numerous eosinophils in the early atrophic area. Testing performed at outside laboratory. See scanned report. 06/29/2018 12:05 PM EST [facility] Tissue Specimen from kidney / Unknown Collection / Unknown 06/13/2018 1:28 PM EST 06/13/2018 1:52 PM EST Ibrahima Talamantes MD PATHOLOGY/CYTOLOGY ORD ERABLES Edited Result - Final Performing Organization Address City/[facility]/ZIP Co de Phone Number [facility]
[address] [place] [address], * (ABNORMAL) POC Glucose Once (06/13/2018 12:51 PM EST) Glucose 65(L) 70 - 130 mg/dL 06/13/2018 12:52 PM EST [facility] Blood 06/13/2018 12:5 1 PM EST 06/13/2018 12:52 PM EST Ibrahima Talamantes MD POINT OF CARE TEST ORD ERABLES Final Result Performing Organization Address City/[facility]/ZIP Co de Phone Number [facility]
[address] [place] [address], * POC Glucose Once (06/13/2018 11:57 AM EST) Glucose 81 70 - 130 mg/dL 06/13/2018 12:01 PM EST [facility] Blood 06/13/2018 11:5 7 AM EST 06/13/2018 12:01 PM EST Ibrahima Talamantes MD POINT OF CARE TEST ORD ERABLES Final Result Performing Organization Address City/[facility]/ZIP Co de Phone Number [facility]
[address] [place] [address], * (ABNORMAL) POC Glucose Once (06/13/2018 11:45 AM EST) Glucose 47(LL) 70 - 130 mg/dL 06/13/2018 11:53 AM EST [facility] Blood 06/13/2018 11:4 5 AM EST 06/13/2018 11:53 AM EST us Ibrahima Talamantes MD POINT OF CARE TEST ORD ERABLES Final Result Performing Organization Address [facility] Co de Phone Number [facility]
[address] [place] [address], * ABO RH Specimen Verification (06/13/2018 10:09 AM EST) ABO Type A 06/13/2018 10:30 AM EST [facility] RH type Positive 06/13/2018 10:30 AM EST [facility] Blood Venipuncture / Unknown 06/13/2018 10:09 AM EST 06/13/2018 10:13 AM EST us Ibrahima Talamantes MD BLOOD BANK TEST ORDERA BLES Final Result Performing Organization Address City/[facility]/ZIP Co de Phone Number [facility]
[address] [place] [address], * (ABNORMAL) POC Glucose Once (06/13/2018 9:01 AM EST) Glucose 148(H) 70 - 130 mg/dL 06/13/2018 9:03 AM EST [facility] Blood 06/13/2018 9:01 AM EST 06/13/2018 9:03 AM EST us Ibrahima Talamantes MD POINT OF CARE TEST ORD ERABLES Final Result Performing Organization Address City/[facility]/ZIP Co de Phone Number [facility]
[address] [place] [address], * Platelet Function Test (06/13/2018 8:57 AM EST) Pathologist [facility] Collagen/Epine phrine 121 72 - 192 Seconds 06/13/2018 9:56 AM EST [facility] Collagen/ADP 86 54 - 123 Seconds 06/13/2018 9:56 AM EST [facility] Blood Venipuncture / Unknown 06/13/2018 8:57 AM EST 06/13/2018 9:27 AM EST [facility] - 06/13/2018 9:56 AM EST PFA Interpretation Norm ADP / Norm EPI: Normal Plt Function ? Norm ADP / Abn EPI: Drug Induced Platelet Dysfunction, most commonly seen with Aspirin ? Abn ADP / Abn EPI: Abnormal Platelet Function, recommend further evaluation Ibrahima Talamantes MD LAB BLOOD ORDERABLES F inal Result Performing Organization Address City/[facility]/ZIP Co de Phone Number [facility]
[address] [place] [address], * Type & Screen (06/13/2018 8:57 AM EST) Pathologist [facility] ABO Type A 06/13/2018 10:23 AM EST [facility] RH type Positive 06/13/2018 10:23 AM [facility] Antibody Screen Negative 06/13/2018 10:23 AM [facility] T&S Expiration Date 06/16/2018 11:59:59 PM 06/13/2018 10:23 AM [facility] Blood Venipuncture / Unknown 06/13/2018 8:57 AM EST 06/13/2018 9:23 AM EST Ibrahima Talamantes MD BLOOD BANK TEST ORDERA BLES Edited Result - Final [facility]
[address] [place] [address], * (ABNORMAL) Renal Function Panel (06/13/2018 8:57 AM EST) Glucose 140(H) 70 - 100 mg/dL 06/13/2018 9:54 AM [facility] BUN 36(H) 9 - 23 mg/dL 06/13/2018 9:54 AM [facility] Creatinine 2.63(H) 0.60 - 1.30 mg/dL 06/13/2018 9:54 AM [facility] Sodium 137 132 - 146 mmol/L 06/13/2018 9:54 AM [facility] Potassium 5.7(H) 3.5 - 5.5 mmol/L 06/13/2018 9:54 AM [facility] Chloride 112(H) 99 - 109 mmol/L 06/13/2018 9:54 AM [facility] CO2 20.0 20.0 - 31.0 mmol/L 06/13/2018 9:54 AM [facility] Calcium 8.5(L) 8.7 - 10.4 mg/dL 06/13/2018 9:54 AM [facility] Albumin 4.15 3.20 - 4.80 g/dL 06/13/2018 9:54 AM [facility] Phosphorus 5.0 2.4 - 5.1 mg/dL 06/13/2018 9:54 AM EST [facility] Anion Gap 5.0 3.0 - 11.0 mmol/L 06/13/2018 9:54 AM EST [facility] BUN/Creatinine Ratio 13.7 7.0 - 25.0 06/13/2018 9:54 AM EST [facility] eGFR Non Amer 22(L) >60 mL/min/1.7 3 06/13/2018 9:54 AM EST [facility] Blood Venipuncture / Unknown 06/13/2018 8:57 AM EST 06/13/2018 9:21 AM EST Narrative [facility] - 06/13/2018 9:54 AM EST [...] MD LAB BLOOD ORDERABLES F inal Result [facility]
[address] [place] [address], * Protime-INR (06/13/2018 8:57 AM EST) Protime 10.5 9.6 - 11.5 Seconds 06/13/2018 9:47 AM EST [facility] INR 1.00 0.91 - 1.09 06/13/2018 9:47 AM EST [facility] Blood Venipuncture / Unknown 06/13/2018 8:57 AM EST 06/13/2018 9:27 AM EST Ibrahima Talamantes MD LAB BLOOD ORDERABLES F inal Result Performing Organization Address [facility]/ZIP Co de Phone Number [facility]
[address] [place] [address], * aPTT (06/13/2018 8:57 AM EST) Pathologist [facility] PTT 28.7 24.0 - 31.0 seconds 06/13/2018 9:47 AM EST [facility] Blood Venipuncture / Unknown 06/13/2018 8:57 AM EST 06/13/2018 9:27 AM EST [facility] - 06/13/2018 9:47 AM EST PTT = The equivalent PTT values for the therapeutic range of heparin levels at 0.3 to 0.5 U/ml are 55 to 70 seconds. Ibrahima Talamantes MD LAB BLOOD ORDERABLES F inal Result Performing Organization Address [facility] de Phone Number [facility]
[address] [place] [address], * (ABNORMAL) CBC (No Diff) (06/13/2018 8:57 AM EST) Pathologist [facility] WBC 10.16 3.50 - 10.80 10*3/mm3 06/13/2018 9:34 AM EST [facility] RBC 3.75(L) 3.89 - 5.14 10*6/mm3 06/13/2018 9:34 AM EST [facility] Hemoglobin 10.7(L) 11.5 - 15.5 g/dL 06/13/2018 9:34 AM EST [facility] Hematocrit 34.5 34.5 - 44.0 % 06/13/2018 9:34 AM [facility] MCV 92.0 80.0 - 99.0 fL 06/13/2018 9:34 AM EST [facility] MCH 28.5 27.0 - 31.0 pg 06/13/2018 9:34 AM [facility] MCHC 31.0(L) 32.0 - 36.0 g/dL 06/13/2018 9:34 AM EST [facility] RDW 12.9 11.3 - 14.5 % 06/13/2018 9:34 AM EST [facility] RDW-SD 43.4 37.0 - 54.0 fl 06/13/2018 9:34 AM EST [facility] MPV 13.0(H) 6.0 - 12.0 fL 06/13/2018 9:34 AM EST [facility] Platelets 268 150 - 450 10*3/mm3 06/13/2018 9:34 AM EST [facility] Blood Venipuncture / Unknown 06/13/2018 8:57 AM EST 06/13/2018 9:27 AM EST Ibrahima Talamantes MD LAB BLOOD ORDERABLES F inal Result Performing Organization Address City/State/[facility] Co de Phone Number [facility]
[address] [place] [address], documented in this encounter Visit Diagnoses Diagnosis [...] at 1445, For 1 dose, Warning: The ic design engineer recommends against administering with sorbitol due to [...] at 1445, For 1 dose, Warning: The ic design engineer recommends against administering with sorbitol due to [...] 1630 1737 (Currently Infusing - Provider: Leah Aldrich, HERNÁN) insulin patient supplied pump Subcutaneous, Continuous, Starting on Tue06/13/18 at 1700, Continue with patient managed pump., Type of Insulin: Admalog, Type of Pump: minimed 530G, Date of Last Site Changed: 06/12/2018, Location of Catheter: left arm 1805 (Self Administered Via Pump - Provider: Leah Aldrich, HERNÁN) PRN Medication Order 06/12/2018 06/13/2018 06/14/2018 acetaminophen [...]
--- OUTSIDE RECORDS SUMMARY | 2024-06-11 08:38 | XMS_ITS | Encounter Summary ---
[facility] Address [address] [place] [address] Care Team Providers Care Log Carrier Operator Name Role Phone Unavailable Primary Care Provider Unavailabl e Encounter Details Date Type Department Care Team (Late st Contact Info) Description 06/16/2018 Readmission Management [facility] NURSE CALL [facility] [address] [place] [phone] Gianni Hardwick, RN Social History Tobacco Use Types Packs/Day [...] Week [facility] the [facility] have one of the following disease processes/diagnoses(primary or secondary)? Other Is there a successful TCM telephone encounter documented? No Week 1 attempt successful? No Unsuccessful attempts Attempt 1 Gianni Hardwick, HERNÁN documented in this encounter Plan of Treatment Not on file documented as of this encounter Visit Diagnoses Not on filedocumented in this encounter
--- OUTSIDE RECORDS SUMMARY | 2024-06-11 08:38 | XMS_ITS | Encounter Summary ---
[facility] Address [address] [place] [address] Care Team Providers Care Director Instrumentation Name Role Phone Unavailable Primary Care Provider Unavailabl e Encounter Details Date Type Department Care Team (Late st Contact Info) Description 04/06/2018 2:35 PM EDT Lab [facility] [address] [place] [address] Proteinuria, unspecified type Social History [...] Antibody 4th Generation (04/06/2018 2:41 PM EDT) [facility] HIV-1/ HIV-2 Non-Reacti ve Non-Reacti ve 04/06/2018 8:19 PM EDT [facility] HIV-1 P24 Ag Screen Non-Reacti ve Non-Reacti ve 04/06/2018 8:19 PM EDT [facility] Blood Venipuncture / Unknown 04/06/2018 2:41 PM EDT 04/06/2018 3:38 PM EDT Chacha Shekhar Gama DO LAB BLOOD ORDERABLES F inal Result [facility]
[address] [place] [id number], * Hepatitis Panel, Acute (04/06/2018 2:41 PM EDT) [facility] Hep A IgM Negative Negative 04/07/2018 9:17 [...] with a HCV Nucleic Acid Amplification test ([id number]). Blood Venipuncture / Unknown 04/06/2018 2:41 PM EDT 04/06/2018 3:38 PM EDT Narrative [facility] - 04/07/2018 9:17 AM EDT Performed at: ??01 - [address], [place], [place] ??[id number] Stapler Hand: Jacob Whaley PhD, Phone: ??[phone] us Chacha Gama DO LAB BLOOD ORDERABLES F inal Result [facility] [address] [place] [address], * GIANCARLO Comprehensive Panel (04/06/2018 2:41 PM EDT) Anti-DNA (DS) Ab Qn 1 0 - 9 IU/mL 04/07/2018 2:15 PM EDT [facility] Comment: ? Negative ?<5 ? Equivocal ??5 - 9 ? Positive ?>9 GEL COATER Antibodies <0.2 0.0 - 0.9 AI 04/07/2018 2:15 PM EDT [facility] Leo Antibodies <0.2 0.0 - 0.9 AI 04/07/2018 2:15 PM EDT [facility] Antiscleroderma-70 Antibodies <0.2 0.0 - 0.9 AI 04/07/2018 2:15 PM EDT [facility] Sjogren's Anti-SS-A <0.2 0.0 - 0.9 AI 04/07/2018 2:15 PM EDT [facility] Sjogren's Anti-SS-B <0.2 0.0 - 0.9 AI 04/07/2018 2:15 PM EDT [facility] Antichromatin Antibodies <0.2 0.0 - 0.9 AI 04/07/2018 2:15 PM EDT [facility] DAILY-1 IgG <0.2 0.0 - 0.9 AI 04/07/2018 2:15 PM EDT [facility] Anti-Centromere [...] Sm (anti-Leo) ?SLE ?15 - 30% ?--------- GEL COATER ?Mixed Connective Tissue ? Disease ? 95% [...] PM EDT 04/06/2018 3:38 PM EDT Narrative [facility] - 04/07/2018 2:15 PM EDT Performed at: ??01 - [address] ??[id number] Stapler Hand: Jacob Whaley PhD, Phone: ??[phone] us Chacha Gama DO LAB BLOOD ORDERABLES F inal Result [facility] [address] [place] [address], * Anti-Leo Antibody (04/06/2018 2:41 PM EDT) Leo Antibodies <0.2 0.0 - 0.9 AI 04/07/2018 2:15 PM EDT [facility] Blood Venipuncture / Unknown 04/06/2018 2:41 PM EDT 04/06/2018 3:38 PM EDT Narrative [facility] - 04/07/2018 2:15 PM EDT Performed at: ??01 - [address] ??[id number] Stapler Hand: Jacob Whaley PhD, Phone: ??[phone] Chacha Shekhar Gama DO LAB BLOOD ORDERABLES F inal Result Performing Organization Address [facility] Co de Phone Number [facility] [address] [place] [address], * Antinuclear Antibodies Direct (04/06/2018 2:41 PM EDT) [facility] GIANCARLO Direct Negative Negative 04/07/2018 2:15 PM EDT [facility] Blood Venipuncture / Unknown 04/06/2018 2:41 PM EDT 04/06/2018 3:38 PM EDT Narrative [facility] - 04/07/2018 2:15 PM EDT Performed at: ??[address] ??[id number] Stapler Hand: Jacob Whaley PhD, Phone: ??[phone] Chacha Gama DO LAB BLOOD ORDERABLES F inal Result Performing Organization Address [facility] de Phone Number [facility] [address] [place] [address], * ANCA Panel (04/06/2018 2:41 PM EDT) Pathologist [facility] Myeloperoxidase Ab <9.0 0.0 - 9.0 U/mL 04/08/2018 5:08 PM EDT [facility] Antiproteinase 3 (NH-3) <3.5 0.0 - 3.5 U/mL 04/08/2018 5:08 [...] up testing of positive sera with both NH-3 and MPO-ANCA enzyme immunoassays. As many as [...] PM EDT 04/06/2018 3:38 PM EDT Narrative [facility] - 04/08/2018 5:08 PM EDT Performed at: ??01 - [address] ??[id number] Stapler Hand: Ibrahima Kelly MD, Phone: ??[phone] Performed at: ??02 - [address] ??[id number] Stapler Hand: Jacob Whaley PhD, Phone: ??[phone] Chacha Gama DO LAB BLOOD ORDERABLES F inal Result [facility] [address] [place] [address], documented in this encounter Visit Diagnoses Diagnosis Proteinuria, unspecified type documented in this encounter
--- OUTSIDE RECORDS SUMMARY | 2024-06-11 08:39 | XMS_ITS | Encounter Summary ---
Author Organization [facility] Address [address] [place] [address] Care Team Providers Care Director Of Channel Marketing Name Role Phone Jaquan Conley MD Primary Care Provider + [phone] Encounter Details Date Type Department Care Team (Late st Contact Info) Description 06/20/2023 1:20 PM EST Office Visit [facility] Endocrinology [address], [address] [place] [address] Erica Ventura PA [address] [place] [address] Type 1 diabetes mellitus with [...] received Dexcom through DME with Medicare,now on [place] medicaid, Dexcom G7 prescription sent today, reviewed [...] of care. Electronically signed by: ANDREA Kumari [facility] ENDOCRINOLOGY [address] [place]. [address] PHONE [phone] FAX: [phone] documented in this encounter Plan of Treatment Upcoming Encounters Date Type Department Care Team (Late st Contact Info) Description 08/28/2024 11:00 AM EST Office Visit [facility] [address], [address] [place] [address] Erica Ventura PA [address] [place] [id number] documented as of this encounter Procedures Procedure Name Priority Date/Time Associated Diagnosis Comments POCT GLYCOSYLATED HEMOGLOBIN (HGB A1C) Routine 06/20/2023 12:56 PM EST Type 1 diabetes mellitus with other specified complication (CMS/HCC) documented in this encounter Results * POCT glycosylated hemoglobin (Hb A1C) docked device (06/20/2023 12:56 PM EST) POCT Hemoglobin A1C 5.1 <5.7% Non-Diabet ic [facility] Kit Lot Number [id number] [facility] LAB Kit Expiration Date 02/14/25 [facility] Blood Venous blood specimen / Unknown 06/20/2023 12:56 PM EST us Erica MENDEZ POINT OF CARE TEST EN TER/EDIT ORDERABLES Final Result [facility] [address] [place] [address] documented in this encounter Visit Diagnoses Diagnosis [...] documented as of this encounter Care Teams Director Of Channel Marketing Relationship Specialty Start Date End Date Jaquan Conley MD [address] [place] [address] PCP - General 11/28/20 documented as of this encounter
--- OUTSIDE RECORDS SUMMARY | 2024-06-11 08:39 | XMS_ITS | Encounter Summary ---
Author Organization [facility] Address [address] [place] [id number] Care Team Providers Care Sheetmetal Worker Name Role Phone Pedro Harper MD, Devi Primary Care Provider [phone] Reason for Referral * Consultation (Routine) - Closed Specialty Diagnoses / Procedures Referred By Contac t Referred To Contact Obstetrics and Gynecology Diagnoses Devi Vasquez MD [address] [facility] [address] [place] [address] Phone: tel: fax: Jaskaran Quintana MD [address] [facility] [address] [place] [address] Phone: tel: fax: Referral ID Status Reason Start Date Expiration Date V isits Requested Visits Authorized [id number] Closed Specialty Services Required 12/30/2015 06/27/2016 1 1 Reason for Visit * Reason Comments Establish Care moved from [place] last period October. thinks she is Diabetes on insulin pump. 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 ? of a hamburger bun or Greenlandic muffin. ?? 4-6 crackers. ? cup unsweetened [...] if you eat 2 cups of strawberries, youbyronll have eaten 2 servings and 30 g [...] foods that contain carbohydrates: ?? Rice. ? [place]. ? Milk. ? Strawberries. Step 2:??Calculate the [...] Reviewed: 05/31/2014 Elsevier Interactive Patient Education ??2016 [employer] documented in this encounter Progress Notes [...] weeks. Pt sugar was over 400 at [facility] on [facility] recently. She did not put enough insulin in her insulin pump. Pt is a smoker. Pt has an appt with Dr Jaskaran Quintana on 01/05/16 who delivered her last child. Pt needs referral. Pt needs statement for [facility] Pt does not communicate with her parents [...] UNITS, Disp: , Rfl: 0 ??? lisinopril (PRINIVILZESTRIL) 10 MG tablet, TAKE 1 TABLET EVERY [...] 11:06 AM EDT) Hemoglobin A1C 11.2 % [facility] Blood specimen (specimen) 12/30/2015 11:06 AM EDT us Dvei Harper MD POINT OF CARE TEST ORDERABL ES Final Result [facility]
[address] [place] [address], * (ABNORMAL) POCT , urine (12/30/2015 10:58 AM EDT) HCG, Urine, QL Positive(A ) Negative [facility] Urine specimen (specimen) 12/30/2015 10:58 AM EDT us Devi Harper MD POINT OF CARE TEST ORDERABL ES Final Result [facility]
[address] [place] [address], documented in this encounter Visit Diagnoses Diagnosis Missed period- Primary Type 2 diabetes mellitus with hyperglycemia documented in this encounter Care Teams Sheetmetal Worker Relationship Specialty Start Date End Date Devi Vasquez MD [facility] [address] [place] [address] PCP - General Family Medicine 12/30/15 01/24/17 documented as of this encounter
--- OUTSIDE RECORDS SUMMARY | 2024-06-11 08:39 | XMS_ITS | Encounter Summary ---
Author Organization [facility] Address [address] [place] [address] Care Team Providers Care Mushroom Spawn Maker Name Role Phone Jaquan Conley MD Primary Care Provider + [phone] Encounter Details Date Type Department Care Team [...] Description 08/28/2024 11:00 AM EST Office [facility] [address], [address] [place] [address] Erica Ventura PA [address] [place] [address] documented as of this encounter Visit Diagnoses Not on filedocumented in this encounter Additional Health Concerns Assessment Noted Time A fall risk assessment has been complete d for the patient 06/20/2023 12:51 PM EST A Body Mass Index follow-up plan has been documented for the patient 01/27/2024 1:29 PM EDT documented as of this encounter Care Teams Mushroom Spawn Maker Relationship Specialty Start Date End Date Jaquan Conley MD [address] [place], [place] [id number] PCP - General 11/28/20 documented as of this encounter
--- OUTSIDE RECORDS SUMMARY | 2024-06-11 08:39 | XMS_ITS | Encounter Summary ---
Author Organization [facility] Address [address] [place] [address] Care Team Providers Care Toll Lineman Name Role Phone Jaquan Colney MD Primary Care Provider + [phone] Encounter Details Date Type Department Care Team [...] 08/28/2024 11:00 AM EST Office Visit [facility] [address], [address] [place] [address] Erica Ventura PA [address] [place] [address] documented as of this encounter Visit Diagnoses Not on filedocumented in this encounter Additional Health Concerns Assessment Noted Time A fall risk assessment has been complete d for the patient 06/20/2023 12:51 PM EST A Body Mass Index follow-up plan has been documented for the patient 06/20/2023 2:00 PM EST documented as of this encounter Care Teams Toll Lineman Relationship Specialty Start Date End Date Jaquan Conley MD [address] [place], [place] [id number] PCP - General 11/28/20 documented as of this encounter
--- OUTSIDE RECORDS SUMMARY | 2024-06-11 08:39 | XMS_ITS | Encounter Summary ---
Author Organization [facility] Address [address] [place] [address] Care Team Providers Care Box Blank Machine Operator Helper Name Role Phone Lauren Slade ANJU Primary Care Provider [phone] Reason for Visit * Reason Comments Hyperglycemia Encounter Details Date Type Department Care Team (Late st Contact Info) Description 09/22/2017 1:43 PM EST - 09/22/2017 5:43 PM EST Emergency [facility] EMERGENCY DEPARTMENT [address] [place] [address] Krissy Bowman MD Hyperglycemia (Primary Dx); [...] be sent through Care Everywhere. * HYPERGLYCEMIA (FRISIAN) * HYPERTENSION (FRISIAN) * TYPE 2 DIABETES MELLITUS SELF CARE ADULT (FRISIAN) documented in this encounter Medications at Time [...] had some medications adjusted recently by her technical sales manager but states there wassome miscommunication and so [...] to patient's outpatient labs recently at the [facility]. He was able to obtain old records [...] 09/22/2017 2:13 PM Krissy Bowman MD 09/22/17 [id number] documented in this encounter Plan of Treatment [...] - 130 mg/dL 09/22/2017 5:15 PM EST [facility] Comment:Serial Number: [id number] Blood 09/22/2017 5:10 PM EST 09/22/2017 5:15 PM EST Krissy Bowman MD POINT OF CARE TEST ORDE TORITO Final Result Performing Organization Address City/[facility]/ZIP Co de Phone Number [facility]
[address] [place] [address], * (ABNORMAL) POC Glucose Once (09/22/2017 4:15 PM EST) Glucose 404(H) 70 - 130 mg/dL 09/22/2017 5:15 PM EST [facility] Comment:Serial Number: [id number]: [id number] Blood 09/22/2017 4:15 PM EST 09/22/2017 5:15 PM EST Krissy Bowman MD POINT OF CARE TEST ORDE TORITO Final Result Performing Organization Address [facility] Co de Phone Number [facility]
[address] [place] [address], * (ABNORMAL) POC Glucose Once (09/22/2017 3:13 PM EST) Glucose 532(HH) 70 - 130 mg/dL 09/22/2017 3:20 PM EST [facility] Comment:Serial Number: [id number] Blood 09/22/2017 3:13 PM EST 09/22/2017 3:20 PM EST Krissy Bowman MD POINT OF CARE TEST ORDBrien UGARTE Final Result Performing Organization Address City/[facility]/ZIP Co de Phone Number [facility]
[address] [place] [id number], * (ABNORMAL) CBC Auto Differential (09/22/2017 2:11 PM EST) [facility] WBC 9.75 4.80 - 10.80 10*3/mm3 09/22/2017 2:43 PM [facility] RBC 4.27 4.20 - 5.40 10*6/mm3 09/22/2017 2:43 PM [facility] Hemoglobin 12.5 12.0 - 16.0 g/dL 09/22/2017 2:43 PM [facility] Hematocrit 37.3 37.0 - 47.0 % 09/22/2017 2:43 PM [facility] MCV 87.4 81.0 - 99.0 fL 09/22/2017 2:43 PM [facility] MCH 29.3 27.0 - 31.0 pg 09/22/2017 2:43 PM [facility] MCHC 33.5 30.0 - 37.0 g/dL 09/22/2017 2:43 PM [facility] RDW 12.2 11.5 - 14.5 % 09/22/2017 2:43 PM [facility] RDW-SD 39.2 37.0 - 54.0 fl 09/22/2017 2:43 PM [facility] MPV 12.8(H) 6.0 - 12.0 fL 09/22/2017 2:43 PM [facility] Platelets 248 130 - 400 10*3/mm3 09/22/2017 2:43 PM [facility] Neutrophil % 65.1 37.0 - 80.0 % 09/22/2017 2:43 PM [facility] Lymphocyte % 26.9 10.0 - 50.0 % 09/22/2017 2:43 PM [facility] Monocyte % 4.1 0.0 - 12.0 % 09/22/2017 2:43 PM [facility] Eosinophil % 2.4 0.0 - 7.0 % 09/22/2017 2:43 PM [facility] Basophil % 0.5 0.0 - 2.5 % 09/22/2017 2:43 PM EST [facility] Immature Grans % 1.0(H) 0.0 - 0.6 % 09/22/2017 2:43 PM EST [facility] Neutrophils, Absolute 6.35 2.00 - 6.90 10*3/mm3 09/22/2017 2:43 PM EST [facility] Lymphocytes, Absolute 2.62 0.60 - 3.40 10*3/mm3 09/22/2017 2:43 PM EST [facility] Monocytes, Absolute 0.40 0.00 - 0.90 10*3/mm3 09/22/2017 2:43 PM EST [facility] Eosinophils, Absolute 0.23 0.00 - 0.70 10*3/mm3 09/22/2017 2:43 PM [facility] Basophils, Absolute 0.05 0.00 - 0.20 10*3/mm3 09/22/2017 2:43 PM EST [facility] Immature Grans, Absolute 0.10(H) 0.00 - 0.06 10*3/mm3 09/22/2017 2:43 PM [facility] nRBC 0.0 0.0 - 0.0 /100 WBC 09/22/2017 2:43 PM [facility] Blood Venipuncture / Unknown 09/22/2017 2:11 PM EST 09/22/2017 2:18 PM EST Krissy Bowman MD LAB BLOOD ORDERABLES Fi nal Result [facility]
[address] [place] [address], [place] [phone] * (ABNORMAL) Comprehensive Metabolic Panel (09/22/2017 2:11 PM EST) Glucose 679(HH) 74 - 98 mg/dL 09/22/2017 2:55 PM EST [facility] Comment:Glucose >180, Hemogl obin A1C recommended. BUN 27(H) 7 - 20 mg/dL 09/22/2017 2:55 PM EST [facility] Creatinine 1.70(H) 0.60 - 1.30 mg/dL 09/22/2017 2:55 PM [facility] Sodium 132(L) 137 - 145 mmol/L 09/22/2017 2:55 PM [facility] Potassium 5.0 3.5 - 5.1 mmol/L 09/22/2017 2:55 PM [facility] Chloride 97(L) 98 - 107 mmol/L 09/22/2017 2:55 PM [facility] CO2 20.0(L) 26.0 - 30.0 mmol/L 09/22/2017 2:55 PM [facility] Calcium 8.9 8.4 - 10.2 mg/dL 09/22/2017 2:55 PM [facility] Total Protein 7.1 6.3 - 8.2 g/dL 09/22/2017 2:55 PM [facility] Albumin 3.80 3.50 - 5.00 g/dL 09/22/2017 2:55 PM [facility] ALT (SGPT) 27 13 - 69 U/L 09/22/2017 2:55 PM [facility] AST (SGOT) 11(L) 15 - 46 U/L 09/22/2017 2:55 PM [facility] Alkaline Phosphatase 129(H) 38 - 126 U/L 09/22/2017 2:55 PM [facility] Total Bilirubin 0.4 0.2 - 1.3 mg/dL 09/22/2017 2:55 PM [facility] eGFR Non Amer 36(L) >60 mL/min/1.7 3 09/22/2017 2:55 PM [facility] Globulin 3.3 gm/dL 09/22/2017 2:55 PM [facility] A/G Ratio 1.2 1.0 - 2.0 g/dL 09/22/2017 2:55 PM [facility] BUN/Creatinine Ratio 15.9 7.1 - 23.5 09/22/2017 2:55 PM [facility] Anion Gap 20.0 mmol/L 09/22/2017 2:55 PM EST [facility] Blood Venipuncture / Unknown 09/22/2017 2:11 PM EST 09/22/2017 2:18 PM EST us Krissy Bowman MD LAB BLOOD ORDERABLES Fi nal Result Performing Organization Address City/[facility]/ZIP Co de Phone Number [facility]
[address] [place] [address], * Green Top (No Gel) (09/22/2017 2:11 PM EST) Extra Tube Hold for add-ons. 09/22/2017 3:16 PM EST [facility] Comment:Auto resulted. Blood Venipuncture / Unknown 09/22/2017 2:11 PM EST 09/22/2017 2:18 PM EST Krissy Bowman MD LAB BLOOD ORDER ONLY Fi nal Result Performing Organization Address [facility] Co de Phone Number [facility]
[address] [place] [address], [place] [phone] * Gold Top - SST (09/22/2017 2:11 PM EST) Extra Tube Hold for add-ons. 09/22/2017 3:16 PM EST [facility] Comment:Auto resulted. Blood Venipuncture / Unknown 09/22/2017 2:11 PM EST 09/22/2017 2:18 PM EST Krissy Bowman MD LAB BLOOD ORDER ONLY Fi nal Result Performing Organization Address City/[facility] Co de Phone Number [facility]
[address] [place] [address], [place] [phone] * Lavender Top (09/22/2017 2:11 PM EST) Extra Tube hold for add-on 09/22/2017 3:16 PM EST [facility] Comment:Auto resulted Blood Venipuncture / Unknown 09/22/2017 2:11 PM EST 09/22/2017 2:18 PM EST us Krissy Bowman MD LAB BLOOD ORDER ONLY Fi nal Result Performing Organization Address [facility] Co de Phone Number [facility]
[address] [place] [address], * Light Blue Top (09/22/2017 2:11 PM EST) Extra Tube hold for add-on 09/22/2017 3:16 PM EST [facility] Comment:Auto resulted Blood Venipuncture / Unknown 09/22/2017 2:11 PM EST 09/22/2017 2:18 PM EST us Krissy Bowman MD LAB BLOOD ORDER ONLY Fi nal Result Performing Organization Address [facility] Co de Phone Number [facility]
[address] [place] [address], [place] [phone] * Urine Culture - Urine, Urine, Clean Catch (09/22/2017 2:04 PM EST) Pathologist [facility] Urine Culture No growth KIRA 09/24/2017 6:14 AM EST [facility] Urine Urine specimen collection, clean catch / Unknown Collection / Unknown 09/22/2017 2:04 PM EST 09/22/2017 2:07 PM EST us Krissy Bowman MD MICROBIOLOGY - GENERAL ORDERABLES Final Result Performing Organization Address [facility] de Phone Number [facility]
[address] [place] [address], [place] [phone] * (ABNORMAL) Urinalysis, Microscopic Only - Urine, Clean Catch (09/22/2017 2:04 PM EST) RBC, UA 0-2(A) None Seen /HPF 09/22/2017 2:43 PM [facility] WBC, UA 0-2(A) None Seen /HPF 09/22/2017 2:43 PM [facility] Bacteria, UA Trace(A) None Seen /HPF 09/22/2017 2:43 PM EST [facility] Squamous Epithelial Cells, UA 3-6(A) None Seen, 0-2 /HPF 09/22/2017 2:43 PM EST [facility] Yeast, UA Small/1+ Budding Yeast None Seen /HPF 09/22/2017 2:43 PM [facility] Hyaline Casts, UA None Seen None Seen /LPF 09/22/2017 2:43 PM [facility] Methodology Manual Light Microscopy 09/22/2017 2:43 PM [facility] Urine Urine specimen collection, clean catch / Unknown Collection / Unknown 09/22/2017 2:04 PM EST 09/22/2017 2:07 PM EST [facility] Mickey Bowman MD URINE ORDERABLES Final Result [facility]
[address] [place] [address], * (ABNORMAL) Urinalysis With / Culture If Indicated - Urine, Clean Catch (09/22/2017 2:04 PM EST) Color, UA Yellow Yellow, Straw 09/22/2017 2:43 PM [facility] Appearance, UA Clear Clear 09/22/2017 2:43 PM [facility] pH, UA 6.0 5.0 - 8.0 09/22/2017 2:43 PM [facility] Specific [place], UA 1.020 1.005 - 1.030 09/22/2017 2:43 PM [facility] Glucose, UA 500 mg/dL (2+)(A) Negative 09/22/2017 2:43 PM [facility] Ketones, UA Negative Negative 09/22/2017 2:43 PM [facility] Bilirubin, UA Negative Negative 09/22/2017 2:43 PM EST [facility] Blood, UA Trace(A) Negative 09/22/2017 2:43 PM EST [facility] Protein, UA >=300 mg/dL (3+)(A) Negative 09/22/2017 2:43 PM EST [facility] Leuk Esterase, UA Negative Negative 09/22/2017 2:43 PM EST [facility] Nitrite, UA Negative Negative 09/22/2017 2:43 PM EST [facility] Urobilinogen, UA 0.2 E.U./dL 0.2 - 1.0 E.U./dL 09/22/2017 2:43 PM EST [facility] Urine Urine specimen collection, clean catch / Unknown Collection / Unknown 09/22/2017 2:04 PM EST 09/22/2017 2:07 PM EST Krissy Bowman MD URINE ORDERABLES Final Result Performing Organization Address City/[facility]/ZIP Co de Phone Number [facility]
[address] [place] [address], [place] [phone] * (ABNORMAL) POC Glucose Once (09/22/2017 2:03 PM EST) Glucose >599(HH) 70 - 130 mg/dL 09/22/2017 2:10 PM EST [facility] Comment:Serial Number: [id number] Blood 09/22/2017 2:03 PM EST 09/22/2017 2:10 PM EST Krissy Bowman MD POINT OF CARE TEST ORDBrien UGARTE Final Result Performing Organization Address City/[facility] Co de Phone Number [facility]
[address] [place] [address], [place] [phone] documented in this encounter Visit Diagnoses Diagnosis [...] 5 Units 5 Units, Subcutaneous, Once, On Mema 09/22/17 at 1637, For 1 dose, {BKC} [...] 1411 documented in this encounter Care Teams Box Blank Machine Operator Helper Relationship Specialty Start Date End Date Lauren Slade APRN [address], [place] [address] [place] [address] PCP - General Family Medicine 09/22/17 02/05/18 documented as of this encounter
--- OUTSIDE RECORDS SUMMARY | 2024-06-11 08:39 | XMS_ITS | Encounter Summary ---
Author Organization [facility] Address [address] [place] [address] Care Team Providers Care Director Of Partnerships Name Role Phone Jaquan Conley MD Primary Care Provider + [phone] Encounter Details Date Type Department Care Team (Late st Contact Info) Description 04/03/2024 Telephone [facility] [address], [address] [place] [address] Marilyn Valencia, HOT FRAME TENDER [address] [facility] [address] [place] [address] Social History Tobacco Use Types [...] Description 08/28/2024 11:00 AM EST Office Visit [facility] Endocr[facility]ology [address], [address] [place] [address] Erica Ventura PA [address] [place] [address] documented as of this encounter Visit Diagnoses Diagnosis Type 2 diabetes mellitus with other specified complication, with long-term current use of insulin ([facility]) documented in this encounter Additional Health Concerns Assessment Noted Time A fall risk assessment has been complete d for the patient 06/20/2023 12:51 PM EST A Body Mass Index follow-up plan has been documented for the patient 01/27/2024 1:29 PM EDT documented as of this encounter Care Teams Director Of Partnerships Relationship Specialty Start Date End Date Jaquan Conley MD [address] [place] [address] PCP - General 11/28/20 documented as of this encounter
--- OUTSIDE RECORDS SUMMARY | 2024-06-11 08:39 | XMS_ITS | Clinical Summary ---
Author Organization [facility] Address [address] [place] [address] Care Team Providers Care Supervisor Stone Name Role Phone Jaquan Conley MD Primary Care Provider + [phone] Allergies Active Allergy Reactions Criticality Noted Date [...] Description 05/23/2024 11:00 AM EST Office Visit [facility] Endocrinology [address], [address] [place] [address] Erica Ventura PA Type 2 diabetes mellitus with other specified complication, with long-term current use of insulin ([facility]) (Primary Dx); Renal transplant recipient 05/23/2024 Travel 04/03/2024 Telephone [facility] Endocrinology [address], [address] [place] [address] Marilyn Valencia, ORGANIZATIONAL DEVELOPMENT SPECIALIST from Last 3 Months Immunizations Name Administration [...] [facility] [address] [place] [address] Erica Ventura PA [address] [place] [address] Health Maintenance Due Date Last Done Comments [facility]-HIV Screening 1989 [facility]-Infant/Child/Adol SDOH Screenings 1989 [id number] Vaccine (#1) 1994 Diabetes: Dental Exam 1999 [...] complication, with long-term current use of insulin ([facility]) CYTO DATA CONVERSION Routine 10/29/2014 12:00 AM EDT from Last 3 Months or Most Recently Relevant to Health Maintenance Results * (ABNORMAL) POCT glycosylated hemoglobin (Hb A1C) (05/23/2024 11:03 AM EST) POCT Hemoglobin A1C 5.8 <5.7% Non-Diabe tic % [facility] Kit Lot Number [id number] [facility] LAB Kit Expiration Date 03/17/2026 [facility] Blood Venous blood specimen / Unknown 05/23/2024 11:03 AM EST Erica MENDEZ POINT OF CARE TEST EN TER/EDIT ORDERABLES Final Result [facility] [address] [place] [address] * Cytology (10/29/2014 12:00 AM EDT) 10/29/2014 10/31/2014 12: 33 PM EDT Narrative [facility] - 11/06/2014 11:15 AM EDT [facility] ?MR #: [id number] [facility] ?FREDDIE ARCHER [place], [place] ??[id number] ?1990 (Age: 24) ?? FW ?Collect Date: 10/29/2014 00:00 ?Receipt Date: 10/31/2014 12:33 ?Page 1 DEPARTMENT OF PATHOLOGY AND ??LABORATORY MEDICINE CYTOPATHOLOGY REPORT ? Email: [email or web address] ?[phone] ? ATTENDING MD/Practitioner: ??John Celestin APRN ? Service: PAT ? Location: [facility] ? Reported: 11/06/2014 11:15 ? Collected: 10/29/2014 00:00 INTERPRETATION A. ??THIN PREP (CERVICAL/VAGINAL): ? NEGATIVE FOR INTRAEPITHELIAL LESION OR MALIGNANCY. ? SATISFACTORY FOR EVALUATION; ENDOCERVICAL/ TRANSFORMATION ZONE COMPONENT PRESENT. Slide scanned and imaged by [employer] ThinPrep Imaging System with manual review of [...] results is suggested (please call Microbiology at [phone] for results). CLINICAL INFORMATION: Menstrual History: Cyclic Date of Last Menstrual Period: ? 10/03/14 Other Clinical Conditions: If ASCUS and > 24 years of age, HPV/DNA testing requested. SPECIMEN DESCRIPTION: A: ??THIN PREP (CERVICAL/VAGINAL) ? THIN PREP PROCESS CELLULAR ENHANCEMENT ICD: ??F: A; RT IMAGE [id number] SNOMED CODES: A; [id number] In cases where a pathologist has signed out the report, the service has been rendered in part by a resident. The signing pathologist has performed and is responsible for the reported pathologic evaluation. us [facility] Provider LAB PATHOLOGY ORDERABLES Final Result [facility] from Last 3 Months or Most Recently Relevant to Health Maintenance Insurance [facility] MEDICA[employer] Care Teams Supervisor Stone Relationship Specialty Start Date End Date Jaquan Conley MD [address] [place] [address] PCP - General 11/28/20
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
--- OUTSIDE RECORDS SUMMARY | 2024-06-11 08:39 | XMS_ITS | Encounter Summary ---
Author Organization [facility] Address [address] [place] [address] Care Team Providers Care Clothing Trades Workers Name Role Phone Jaquan Conley MD Primary Care Provider + [phone] Reason for Visit * Reason Comments Type 1 diabetes mellitus with other spec ified complication Encounter Details Date Type Department Care Team (Late st Contact Info) Description 05/23/2024 11:00 AM EST [facility] Visit [facility] [address] [facility], [address] [place] [address] Erica Ventura PA [address] [facility] [address] [place] [address] Type 2 diabetes mellitus with other specified complication, with long-term current use of insulin ([facility]) (Primary Dx); Renal transplant recipient [...] education team with any questions or concerns [phone] * Progress Notes - Erica Ventura PA [...] a single kidney transplant on 12/02 at [facility], prednisone was stopped due to rash, [...] and due to elevated C-peptide, now on [facility] Medicaid. -Patient also endorses discussing pancreas [...] of care. Electronically signed by: ANDREA Paul [facility] ENDOCRINOLOGY [address] [place] [address]. [address] [place]. [address] PHONE [phone] FAX: [phone] documented in this encounter Plan of Treatment Upcoming Encounters Date Type Department Care Team (Late st Contact Info) Description 08/28/2024 11:00 AM EST Office Visit [facility] Endocrinology [address] [place], [place] [address] [place] [address] Erica Ventura PA [address] [facility] [address] [place] [address] documented as of this encounter Procedures Procedure Name Priority Date/Time Associated Diagnosis Comments POCT GLYCOSYLATED HEMOGLOBIN (HGB A1C) Routine 05/23/2024 11:03 AM EST Type 2 diabetes mellitus with other specified complication, with long-term current use of insulin ([facility]) documented in this encounter Results * (ABNORMAL) POCT glycosylated hemoglobin (Hb A1C) (05/23/2024 11:03 AM EST) POCT Hemoglobin A1C 5.8 <5.7% Non-Diabe tic % [facility] Kit Lot Number [id number] [facility] LAB Kit Expiration Date 03/17/2026 [facility] Blood Venous blood specimen / Unknown 05/23/2024 11:03 AM EST us Erica MENDEZ POINT OF CARE TEST EN TER/EDIT ORDERABLES Final Result [facility] [address] [place] [address] documented in this encounter Visit Diagnoses Diagnosis Type 2 diabetes mellitus with other specified complication, with long-term current use of insulin ([facility])- Primary Renal transplant recipient documented in this encounter Additional Health Concerns Assessment Noted Time A fall risk assessment has been complete d for the patient 06/20/2023 12:51 PM EST A Body Mass Index follow-up plan has been documented for the patient 05/23/2024 12:56 PM EST documented as of this encounter Care Teams Clothing Trades Workers Relationship Specialty Start Date End Date Jaquan Conley MD [address] [place] [address] PCP - General 11/28/20 documented as of this encounter
--- OUTSIDE RECORDS SUMMARY | 2024-06-11 08:39 | XMS_ITS | Encounter Summary ---
Author Organization [facility] Address [address] [place] [address] Care Team Providers Care Lead Mason Tender Name Role Phone Jaquan Conley MD Primary Care Provider + [phone] Encounter Details Date Type Department Care Team (Late st Contact Info) Description 01/27/2024 Telephone [facility] [address], [address] [place] [address] Marilyn Valencia, ISOTOPE HYDROLOGIST [address] [facility] [address] [place] [address] Social History Tobacco Use Types [...] [facility] [address], [address] [place] [address] Erica Ventura PA [address] [place] [address] documented as of this encounter Visit Diagnoses Not on filedocumented in this encounter Additional Health Concerns Assessment Noted Time A fall risk assessment has been complete d for the patient 06/20/2023 12:51 PM EST A Body Mass Index follow-up plan has been documented for the patient 01/27/2024 1:29 PM EDT documented as of this encounter Care Teams Lead Mason Tender Relationship Specialty Start Date End Date Jaquan Conley MD [address] [place] [address] PCP - General 11/28/20 documented as of this encounter
--- OUTSIDE RECORDS SUMMARY | 2024-06-11 08:39 | XMS_ITS | Encounter Summary ---
Author Organization [facility] Address [address] [place] [address] Care Team Providers Care Ruling Technician Name Role Phone Jaquan Conley MD Primary Care Provider + [phone] Reason for Visit * Reason Comments Initial Evaluation * Physical Therapy (Routine) - Closed Specialty Diagnoses / Procedures Referred By Contac t Referred To Contact Physical Therapy Diagnoses Flat back syndrome Low back pain, unspecified back pain laterality, unspecified chronicity, with sciatica presence unspecified Orthopedic aftercare Long Valles MD [address] [place] [address] Phone: tel: fax: Chad Rivera, PT [address] [place], [place] [address] [place] [address] Phone: tel: Referral ID Status Reason Start Date Expiration Date V isits Requested Visits Authorized [id number] Closed Specialty Services Required 03/14/2017 03/14/2018 50 50 Encounter Details Date Type Department Care Team (Late st Contact Info) Description 03/14/2017 4:30 PM EDT Treatment [facility] [address] [place] [address] Chad Rivera, PT [address] [facility] [address] [place], [place] [id number] Acute bilateral low back pain with bilateral [...] is so high. Severe diabetic. 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 Pain Current pain ratin At best [...] planes to improved stability of the core/trunk SAMPLER RADIOACTIVE WASTE GOALS: 6 weeks 1. Pt to demonstrate [...] interventions: cryotherapy, thermotherapy (hydrocollator packs) and electrical stimulation/Martiniquais stimulation Planned therapy interventions: abdominal trunk stabilization, manual therapy, spinal/joint mobilization, soft tissue mobilization, strengthening, stretching, therapeutic activities, functional ROM exercises, flexibility, body mechanics training, neuromuscular re-education and postural training Treatment plan discussed with: patient Plan details: Pt will be seen 1 x / week. Assess Pt response to PREP, posture and body mechanics. Manual Therapy: mins 26285; Therapeutic Exercise: mins 57885; Neuromuscular Hair: mins 82964; Therapeutic Activity: 10 nc mins 65247; Gait Training: mins 06686; Ultrasound: mins 24507; Electrical Stimulation: mins 65464 ( [id number]); Dry Needling mins self-pay Timed [...] return via fax to .. Thank you, [facility] Physical Therapy. documented in this encounter Plan of Treatment Not on file documented as of this encounter Visit Diagnoses Diagnosis Acute bilateral low back pain with bilateral sciatica- Primary documented in this encounter Care Teams Ruling Technician Relationship Specialty Start Date End Date Jaquan Conley MD [address] [place] [address] PCP - General 01/25/17 09/21/17 documented as of this encounter
--- OUTSIDE RECORDS SUMMARY | 2024-06-11 08:39 | XMS_ITS | Encounter Summary ---
Author Organization [facility] Address [address] [place] [address] Care Team Providers Care Biscuit Factory Worker Name Role Phone Jaquan Conley MD Primary Care Provider + [phone] Reason for Visit * (Routine) - Closed Specialty Diagnoses / Procedures Referred By Contac t Referred To Contact Radiology Diagnoses Acute bilateral thoracic back pain Procedures XR Spine Thoracic 3 View Jaquan Conley MD [address] [place] [address] Phone: tel: fax: Referral ID Status Reason Start Date Expiration Date Visits Re quested Visits Authorized [id number] Closed 01/25/2017 01/25/2018 1 1 Encounter Details Date Type Department Care Team (Latest Contact Info) Description 01/25/2017 6:15 PM EDT - 01/25/2017 11:59 PM EDT Hospital Encounter [facility] XRAY [address] [place] [address] Jaquan Conley MD [address] [place] [address] Discharge Disposition: Home or Self Care Social [...] TAKE 1 TABLET EVERY DAY 0 12/23/2015 citalopram (CeleXA) 10 MG tablet TAKE 2 TABLETS BY MOUTH DAILY 0 12/23/2015 06/14/2018 gabapentin (NEURONTIN) 300 MG capsule BID 0 12/23/2015 02/15/2023 HUMALOG 100 UNIT/ML injection USE DIRECTED PER INSULIN PUMP THERAPY.MAXIMU M DAILY DOSE OF 150 UNITS 0 12/23/2015 07/22/2018 lisinopril (PRINIVIL,ZESTRI L) 10 MG tablet Takes 20mg daily 0 12/23/2015 06/07/2024 loratadine (CLARITIN) 10 MG tablet Take 10 [...] on filedocumented in this encounter Care Teams Biscuit Factory Worker Relationship Specialty Start Date End Date Jaquan Conley MD [address] [place] [address] PCP - General 01/25/17 09/21/17 documented as of this encounter
--- OUTSIDE RECORDS SUMMARY | 2024-06-11 08:39 | XMS_ITS | Encounter Summary ---
Author Organization [facility] Address [address] [place] [address] Care Team Providers Care Atomic Physics Professor Name Role Phone Jaquan Conley MD Primary Care Provider + [phone] Encounter Details Date Type Department Care Team [...] 08/28/2024 11:00 AM EST [facility] [address], [address] [place] [address] Erica Ventura PA [address] [place] [address] documented as of this encounter Visit Diagnoses Not on filedocumented in this encounter Additional Health Concerns Assessment Noted Time A fall risk assessment has been complete d for the patient 06/20/2023 12:51 PM EST A Body Mass Index follow-up plan has been documented for the patient 05/23/2024 12:56 PM EST documented as of this encounter Care Teams Atomic Physics Professor Relationship Specialty Start Date End Date Jaquan Conley MD [address] [place], [place] [id number] PCP - General 11/28/20 documented as of this encounter
--- OUTSIDE RECORDS SUMMARY | 2024-06-11 08:39 | XMS_ITS | Encounter Summary ---
[facility] Address [address] [place] [address] Care Team Providers Care Recording Studio Setup Worker Name Role Phone Lauren Slade ANJU Primary Care Provider [phone] Reason for Visit * Reason Comments Hyperglycemia Encounter Details Date Type Department Care Team (Late st Contact Info) Description 01/14/2018 7:58 PM EDT - 01/14/2018 10:20 PM EDT Emergency [facility] EM[facility]ENC[facility]PART[facility] [address] [place] [id number] Dominik Rizo MD [address] [place] [address] Type 2 diabetes mellitus with hyperglycemia, with [...] Care Everywhere. * Blood Glucose Monitoring Adult (Korean) documented in this encounter Medications at Time [...] this encounter ED Notes * Stormy Vyas, ALBERENE STONE SETTER - 01/14/2018 10:20 PM EDT Subjective History [...] hyperglycemia, with long-term current use of insulin ([facility]) Essential hypertension Stormy Vyas APRN 01/16/18 2221 Cosigned by Dominik Rizo MD at 01/17/2018 12:33 AM EDT Associated attestation - Dominik Rizo MD - 01/17/2018 12:33 AM EDT For this patient encounter, I reviewed the [employer] or PA documentation, treatment plan, and medical [...] - 130 mg/dL 01/14/2018 11:25 PM EDT [facility] Comment:Serial Number: [id number] Blood 01/14/2018 9:31 PM EDT 01/14/2018 11:25 PM EDT Dominik Rizo MD POINT OF CARE TEST ORDERABLES Final Result [facility]
[address] [id number], * (ABNORMAL) Blood Gas, Venous (01/14/2018 9:10 PM EDT) Site Arterial Line 01/14/2018 9:07 PM EDT [facility] RES[facility] THERAPY pH, Venous 7.354 7.320 - 7.420 pH Units 01/14/2018 9:07 PM EDT [facility] THERAPY pCO2, Venous 40.8 40.0 - 50.0 mm Hg 01/14/2018 9:07 PM EDT [facility] THERAPY pO2, Venous 28.9(L) 30.0 - 50.0 mm Hg 01/14/2018 9:07 PM EDT [facility] THERAPY HCO3, Venous 22.7 22.0 - 28.0 mmol/L 01/14/2018 9:07 PM EDT [facility] THERAPY Base Excess, Venous -2.8(L) 0.0 - 2.0 mmol/L 01/14/2018 9:07 PM EDT [facility] THERAPY O2 Saturation, Venous 53.5 45.0 - 75.0 % 01/14/2018 9:07 PM EDT [facility] THERAPY Hemoglobin, Blood Gas 11.7(L) 12 - 18 g/dL 01/14/2018 9:07 PM EDT [facility] THERAPY Barometric Pressure for Blood Gas 735 mmHg 01/14/2018 9:07 PM EDT [facility]ERAP[facility] Modality Room Air 01/14/2018 9:07 PM EDT [facility]ER[facility] FIO2 21 % 01/14/2018 9:07 PM EDT [facility] THERAPY Venous Blood 01/14/2018 9:10 PM EDT 01/14/2018 9:07 PM EDT Dominik Rizo MD LAB BLOOD ORDERABLES Final Res ult [facility]ER[facility]
[address] [place] [address], * (ABNORMAL) CBC Auto Differential (01/14/2018 9:01 PM EDT) WBC 9.85 4.80 - 10.80 10*3/mm3 01/14/2018 9:09 PM EDT [facility] RBC 3.98(L) 4.20 - 5.40 10*6/mm3 01/14/2018 9:09 PM EDT [facility] Hemoglobin 11.8(L) 12.0 - 16.0 g/dL 01/14/2018 9:09 PM EDT [facility] Hematocrit 33.9(L) 37.0 - 47.0 % 01/14/2018 9:09 PM EDT [facility] MCV 85.2 81.0 - 99.0 fL 01/14/2018 9:09 PM EDT [facility] MCH 29.6 27.0 - 31.0 pg 01/14/2018 9:09 PM EDT [facility] MCHC 34.8 30.0 - 37.0 g/dL 01/14/2018 9:09 PM EDT [facility] RDW 11.9 11.5 - 14.5 % 01/14/2018 9:09 PM EDT [facility] RDW-SD 37.0 37.0 - 54.0 fl 01/14/2018 9:09 PM EDT [facility] MPV 13.2(H) 6.0 - 12.0 fL 01/14/2018 9:09 PM EDT [facility] Platelets 192 130 - 400 10*3/mm3 01/14/2018 9:09 PM EDT [facility] Neutrophil % 44.4 37.0 - 80.0 % 01/14/2018 9:09 PM EDT [facility] Lymphocyte % 46.7 10.0 - 50.0 % 01/14/2018 9:09 PM EDT [facility] Monocyte % 4.5 0.0 - 12.0 % 01/14/2018 9:09 PM EDT [facility] Eosinophil % 3.8 0.0 - 7.0 % 01/14/2018 9:09 PM EDT [facility] Basophil % 0.4 0.0 - 2.5 % 01/14/2018 9:09 PM EDT [facility] Immature Grans % 0.2 0.0 - 0.6 % 01/14/2018 9:09 PM EDT [facility] Neutrophils, Absolute 4.38 2.00 - 6.90 10*3/mm3 01/14/2018 9:09 PM EDT [facility] Lymphocytes, Absolute 4.60(H) 0.60 - 3.40 10*3/mm3 01/14/2018 9:09 PM EDT [facility] Monocytes, Absolute 0.44 0.00 - 0.90 10*3/mm3 01/14/2018 9:09 PM EDT [facility] Eosinophils, Absolute 0.37 0.00 - 0.70 10*3/mm3 01/14/2018 9:09 PM EDT [facility] Basophils, Absolute 0.04 0.00 - 0.20 10*3/mm3 01/14/2018 9:09 PM EDT [facility] Immature Grans, Absolute 0.02 0.00 - 0.06 10*3/mm3 01/14/2018 9:09 PM EDT [facility] nRBC 0.0 0.0 - 0.0 /100 WBC 01/14/2018 9:09 PM EDT [facility] Blood Venipuncture / Unknown 01/14/2018 9:01 PM EDT 01/14/2018 9:06 PM EDT us Stormy Vyas ALBERENE STONE SETTER LAB BLOOD ORDERABLE S Final Result [facility]
[address] [id number], * Lactic Acid, Plasma (01/14/2018 9:01 PM EDT) Lactate 1.7 0.5 - 2.0 mmol/L 01/14/2018 9:23 PM EDT [facility] Blood Venipuncture / Unknown 01/14/2018 9:01 PM EDT 01/14/2018 9:06 PM EDT Stormy Vyas ALBERENE STONE SETTER LAB BLOOD ORDERABLE S Final Result [facility]
[address] [place] [address], * (ABNORMAL) Comprehensive Metabolic Panel (01/14/2018 9:01 PM EDT) Glucose 380(HH) 74 - 98 mg/dL 01/14/2018 9:51 PM EDT [facility] BUN 30(H) 7 - 20 mg/dL 01/14/2018 9:51 PM EDT [facility] Creatinine 2.00(H) 0.60 - 1.30 mg/dL 01/14/2018 9:51 PM EDT [facility] Sodium 134(L) 137 - 145 mmol/L 01/14/2018 9:51 PM EDT [facility] Potassium 4.3 3.5 - 5.1 mmol/L 01/14/2018 9:51 PM EDT [facility] Chloride 101 98 - 107 mmol/L 01/14/2018 9:51 PM EDT [facility] CO2 22.0(L) 26.0 - 30.0 mmol/L 01/14/2018 9:51 PM EDT [facility] Calcium 9.5 8.4 - 10.2 mg/dL 01/14/2018 9:51 PM EDT [facility] Total Protein 6.9 6.3 - 8.2 g/dL 01/14/2018 9:51 PM EDT [facility] Albumin 3.80 3.50 - 5.00 g/dL 01/14/2018 9:51 PM EDT [facility] ALT (SGPT) 12(L) 13 - 69 U/L 01/14/2018 9:51 PM EDT [facility] AST (SGOT) 15 15 - 46 U/L 01/14/2018 9:51 PM EDT [facility] Alkaline Phosphatase 104 38 - 126 U/L 01/14/2018 9:51 PM EDT [facility] Total Bilirubin 0.3 0.2 - 1.3 mg/dL 01/14/2018 9:51 PM EDT [facility] eGFR Non Amer 30(L) >60 mL/min/1.7 3 01/14/2018 9:51 PM EDT [facility] Globulin 3.1 gm/dL 01/14/2018 9:51 PM EDT [facility] A/G Ratio 1.2 1.0 - 2.0 g/dL 01/14/2018 9:51 PM EDT [facility] BUN/Creatinine Ratio 15.0 7.1 - 23.5 01/14/2018 9:51 PM EDT [facility] Anion Gap 15.3 10.0 - 20.0 mmol/L 01/14/2018 9:51 PM EDT [facility] Blood Venipuncture / Unknown 01/14/2018 9:01 PM EDT 01/14/2018 9:06 PM EDT Narrative [facility] - 01/14/2018 9:51 PM EDT GFR Normal >60 Chronic Kidney Disease <60 Kidney Failure <15 Stormy Vyas ALBERENE STONE SETTER LAB BLOOD ORDERABLE S Final Result [facility]
[address] [place] [address], [place] [phone] * (ABNORMAL) Urinalysis, Microscopic Only - Urine, Clean Catch (01/14/2018 9:00 PM EDT) RBC, UA 0-2(A) None Seen /HPF 01/14/2018 9:25 PM EDT [facility] WBC, UA 0-2(A) None Seen /HPF 01/14/2018 9:25 PM EDT [facility] Bacteria, UA Trace(A) None Seen /HPF 01/14/2018 9:25 PM EDT [facility] Squamous Epithelial Cells, UA 3-6(A) None Seen, 0-2 /HPF 01/14/2018 9:25 PM EDT [facility] Hyaline Casts, UA None Seen None Seen /LPF 01/14/2018 9:25 PM EDT [facility] Mucus, UA Trace None Seen, Trace /HPF 01/14/2018 9:25 PM EDT [facility] Methodology Manual Light Microscopy 01/14/2018 9:25 PM T [facility] Urine Urine specimen collection, clean catch / Unknown Collection / Unknown 01/14/2018 9:00 PM EDT 01/14/2018 9:06 PM EDT Stormy Vyas ALBERENE STONE SETTER URINE ORDERABLES nal Result [facility]
[address] [place] [address], [place] [phone] * (ABNORMAL) Urinalysis With Culture If Indicated - Urine, Clean Catch (01/14/2018 9:00 PM EDT) Color, UA Yellow Yellow, Straw 01/14/2018 9:13 PM EDT [facility] Appearance, UA Clear Clear 01/14/2018 9:13 PM EDT [facility] pH, UA 6.5 5.0 - 8.0 01/14/2018 9:13 PM EDT [facility] Specific [place], UA 1.020 1.005 - 1.030 01/14/2018 9:13 PM EDT [facility] Glucose, UA >=1000 mg/dL (3+)(A) Negative 01/14/2018 9:13 PM EDT [facility] Ketones, UA Negative Negative 01/14/2018 9:13 PM EDT [facility] Bilirubin, UA Negative Negative 01/14/2018 9:13 PM EDT [facility] Blood, UA Trace(A) Negative 01/14/2018 9:13 PM EDT [facility] Protein, UA >=300 mg/dL (3+)(A) Negative 01/14/2018 9:13 PM EDT [facility] Leuk Esterase, UA Negative Negative 01/14/2018 9:13 PM EDT [facility] Nitrite, UA Negative Negative 01/14/2018 9:13 PM EDT [facility] Urobilinogen, UA 0.2 E.U./dL 0.2 - 1.0 E.U./dL 01/14/2018 9:13 PM EDT [facility] Urine Urine specimen collection, clean catch / Unknown Collection / Unknown 01/14/2018 9:00 PM EDT 01/14/2018 9:06 PM EDT Stormy Vyas APRN URINE ORDERABLES Fi nal Result Performing Organization Address City/[facility]/ZIP Co de Phone Number [facility]
[address] [place] [address], * (ABNORMAL) POC Glucose Once (01/14/2018 8:05 PM EDT) [facility] Signature Glucose 533(HH) 70 - 130 mg/dL 01/14/2018 8:10 PM EDT [facility] Comment:Serial Number: [id number] Blood 01/14/2018 8:05 PM EDT 01/14/2018 8:10 PM EDT Dominik Rizo MD POINT OF CARE TEST ORDERABLES Final Result Performing Organization Address [facility]/ZIP Co de Phone Number [facility]
[address] [place] [address], [place] [phone] documented in this encounter Visit Diagnoses Diagnosis [...] RN) documented in this encounter Care Teams Recording Studio Setup Worker Relationship Specialty Start Date End Date Lauren Slade APRN [address] [facility] [address] [place] [address] PCP - General Family Medicine 09/22/17 02/05/18 documented as of this encounter
--- OUTSIDE RECORDS SUMMARY | 2024-06-11 08:39 | XMS_ITS | Encounter Summary ---
Author Organization [facility] Address [address] [place] [address] Care Team Providers Care Barrel Builder Name Role Phone Jaquan Conley MD Primary Care Provider + [phone] Encounter Details Date Type Department Care Team (Late st Contact Info) Description 01/27/2024 12:20 PM EDT Office Visit [facility] Endocrinology [address] , [address] [place] [address] Marilyn Valencia, DIRECTOR COMPLIANCE [address] [facility] [address] [place] [address] Type 2 diabetes mellitus with other specified complication, with long-term current use of insulin ([facility]) (Primary Dx); Insulin pump titration; Hypoglycemia due [...] Patient confirms they are physically located in [place]? Yes If the patient is not physically located in [place], the provider has confirmed with [facility] thatthe provider is authorized to provide services in patient's stated location? Yes Provider Location: [facility] facility Audio and video or audio only? Audio and video Total visit time: 48 minutes HPI - last OV 06/20/23 with JOHN Arango - since then she has had a kidney transplant on 12/03/23 at [facility]. No longer taking prednisone due torash, stopped [...] care. Electronically signed by: Marilyn Valencia APRN [facility] [address] [place]. [address] PHONE [phone] FAX: [phone] documented in this encounter Plan of Treatment Upcoming Encounters Date Type Department Care Team (Late st Contact Info) Description 08/28/2024 11:00 AM EST Office Visit [facility] Endocrinology [address] , [address] [place] [address] Eriac Ventura PA [address] [facility] [address] [place] [address] documented as of this encounter Visit Diagnoses Diagnosis Type 2 diabetes mellitus with other specified complication, with long-term current use of insulin ([facility])- Primary Insulin pump titration Fitting and adjustment [...] documented as of this encounter Care Teams Barrel Builder Relationship Specialty Start Date End Date Jaquan Conley MD [address] [place], [place] [id number] PCP - General 11/28/20 documented as of this encounter
--- OUTSIDE RECORDS SUMMARY | 2024-06-11 08:39 | XMS_ITS | Encounter Summary ---
[facility] Address [address] [place] [address] Care Team Providers Care [employer] V[employer] Clerk Name Role Phone Jaquan Conley MD Primary Care Provider [phone] Reason for Visit * Reason Comments Hyperglycemia Encounter Details Date Type Department Care Team (Late st Contact Info) Description 04/01/2017 1:27 AM EDT - 04/01/2017 5:13 AM EDT Emergency [facility] [address] [place] [address] [phone] Mickey Cerda MD [address] [place] [address] Hyperglycemia (Primary Dx) Discharge Disposition: [...] be sent through Care Everywhere. * HYPERGLYCEMIA, [id number]-SP-SFAT (OCCITAN) documented in this encounter Medications at Time [...] to care precautions. Final diagnoses: Hyperglycemia Mickey eCrda MD 04/01/17 0427 documented in this encounter [...] 130 mg/dL 04/01/2017 4:20 AM EDT [facility] Comment:Serial Number: [id number]: [id number] Blood 04/01/2017 4:15 AM EDT 04/01/2017 4:20 AM EDT Mickey Cerda MD POINT OF CARE TEST ORDERABL ES Final Result [facility]
[address] [place] [address], * (ABNORMAL) POC Glucose Fingerstick (04/01/2017 2:55 AM EDT) Glucose 434(H) 70 - 130 mg/dL 04/01/2017 3:00 AM EDT [facility] Comment:Serial Number: [id number] Blood 04/01/2017 2:55 AM EDT 04/01/2017 3:00 AM EDT Mickey Cerda MD POINT OF CARE TEST ORDERABL ES Final Result [facility]
[address] [place] [address], * (ABNORMAL) Urinalysis, Microscopic Only (04/01/2017 2:25 AM EDT) RBC, UA 0-2(A) None Seen /HPF 04/01/2017 2:47 AM EDT [facility] WBC, UA None Seen None Seen /HPF 04/01/2017 2:47 AM EDT [facility] Bacteria, UA Trace(A) None Seen /HPF 04/01/2017 2:47 AM EDT [facility] Squamous Epithelial Cells, UA 3-6(A) None Seen, 0-2 /HPF 04/01/2017 2:47 AM EDT [facility] Hyaline Casts, UA None Seen None Seen /LPF 04/01/2017 2:47 AM EDT [facility] Methodology Manual Light Microscopy 04/01/2017 2:47 AM EDT [facility] Urine Urine specimen collection, clean catch / Unknown Collection / Unknown 04/01/2017 2:25 AM EDT 04/01/2017 2:28 AM EDT Narrative [facility] - 04/01/2017 2:47 AM EDT Rare budding yeast seen us Mickey Cerda MD URINE ORDERABLES Final Resu lt [facility]
[address] [place] [address], [place] [phone] * (ABNORMAL) Urinalysis With / Culture If Indicated (04/01/2017 2:25 AM EDT) Color, UA Yellow Yellow, Straw 04/01/2017 2:40 AM EDT [facility] Appearance, UA Clear Clear 04/01/2017 2:40 AM T [facility] pH, UA 6.0 5.0 - 8.0 04/01/2017 2:40 AM T [facility] Specific [place], UA 1.020 1.005 - 1.030 04/01/2017 2:40 AM EDT [facility] Glucose, UA 500 mg/dL (2+)(A) Negative 04/01/2017 2:40 AM EDT [facility] Ketones, UA Negative Negative 04/01/2017 2:40 AM EDT [facility] Bilirubin, UA Negative Negative 04/01/2017 2:40 AM EDT [facility] Blood, UA Trace(A) Negative 04/01/2017 2:40 AM EDT [facility] Protein, UA >=300 mg/dL (3+)(A) Negative 04/01/2017 2:40 AM EDT [facility] Leuk Esterase, UA Negative Negative 04/01/2017 2:40 AM EDT [facility] Nitrite, UA Negative Negative 04/01/2017 2:40 AM EDT [facility] Urobilinogen, UA 0.2 E.U./dL 0.2 - 1.0 E.U./dL 04/01/2017 2:40 AM EDT [facility] Urine Urine specimen collection, clean catch / Unknown Collection / Unknown 04/01/2017 2:25 AM EDT 04/01/2017 2:28 AM EDT us Mickey Cerda MD URINE ORDERABLES Final Resu lt Performing Organization Address City/[facility]/ZIP Co de Phone Number [facility]
[address] [place] [address], [place] [phone] * hCG, Serum, Qualitative (04/01/2017 1:26 AM EDT) HCG Qualitative Negative Negative 7 2:09 AM EDT [facility] Blood Venipuncture / Unknown 04/01/2017 1:26 AM EDT 04/01/2017 1:31 AM EDT us Mickey Cerda MD LAB BLOOD ORDERABLES Final Result Performing Organization Address City/[facility]/ZIP Co de Phone Number [facility]
[address] [place] [address], [place] [phone] * (ABNORMAL) CBC Auto Differential (04/01/2017 1:25 AM EDT) WBC 8.79 4.80 - 10.80 10*3/mm3 04/01/2017 1:37 AM EDT [facility] RBC 4.26 4.20 - 5.40 10*6/mm3 04/01/2017 1:37 AM EDT [facility] Hemoglobin 12.7 12.0 - 16.0 g/dL 04/01/2017 1:37 AM [facility] Hematocrit 37.3 37.0 - 47.0 % 04/01/2017 1:37 AM [facility] MCV 87.6 81.0 - 99.0 fL 04/01/2017 1:37 AM [facility] MCH 29.8 27.0 - 31.0 pg 04/01/2017 1:37 AM [facility] MCHC 34.0 30.0 - 37.0 g/dL 04/01/2017 1:37 AM [facility] RDW 11.9 11.5 - 14.5 % 04/01/2017 1:37 AM [facility] RDW-SD 38.1 37.0 - 54.0 fl 04/01/2017 1:37 AM [facility] MPV 13.9(H) 6.0 - 12.0 fL 04/01/2017 1:37 AM [facility] Platelets 174 130 - 400 10*3/mm3 04/01/2017 1:37 AM [facility] Neutrophil % 54.0 37.0 - 80.0 % 04/01/2017 1:37 AM [facility] Lymphocyte % 36.4 10.0 - 50.0 % 04/01/2017 1:37 AM [facility] Monocyte % 6.1 0.0 - 12.0 % 04/01/2017 1:37 AM [facility] Eosinophil % 2.5 0.0 - 7.0 % 04/01/2017 1:37 AM [facility] Basophil % 0.5 0.0 - 2.5 % 04/01/2017 1:37 AM [facility] Immature Grans % 0.5 0.0 - 0.6 % 04/01/2017 1:37 AM [facility] Neutrophils, Absolute 4.75 2.00 - 6.90 10*3/mm3 04/01/2017 1:37 AM [facility] Lymphocytes, Absolute 3.20 0.60 - 3.40 10*3/mm3 04/01/2017 1:37 AM EDT [facility] Monocytes, Absolute 0.54 0.00 - 0.90 10*3/mm3 04/01/2017 1:37 AM EDT [facility] Eosinophils, Absolute 0.22 0.00 - 0.70 10*3/mm3 04/01/2017 1:37 AM EDT [facility] Basophils, Absolute 0.04 0.00 - 0.20 10*3/mm3 04/01/2017 1:37 AM EDT [facility] Immature Grans, Absolute 0.04 0.00 - 0.06 10*3/mm3 04/01/2017 1:37 AM EDT [facility] nRBC 0.0 0.0 - 0.0 /100 WBC 04/01/2017 1:37 AM EDT [facility] Blood Venipuncture / Unknown 04/01/2017 1:25 AM EDT 04/01/2017 1:31 AM EDT Mickey Cerda MD LAB BLOOD ORDERABLES Final Result [facility]
[address] [place] [address], * (ABNORMAL) Comprehensive Metabolic Panel (04/01/2017 1:25 AM EDT) Glucose 499(HH) 74 - 98 mg/dL 04/01/2017 1:57 AM EDT [facility] Comment:Glucose >180, Hemogl obin A1C recommended. BUN 13 7 - 20 mg/dL 04/01/2017 1:57 AM T [facility] Comment:Specimen hemolyzed. Results may be affected. Creatinine 1.40(H) 0.60 - 1.30 mg/dL 04/01/2017 1:57 AM EDT [facility] Sodium 131(L) 137 - 145 mmol/L 04/01/2017 1:57 AM EDT [facility] Potassium 4.4 3.5 - 5.1 mmol/L 04/01/2017 1:57 AM [facility] Comment:Specimen hemolyzed. Results may be affected. Chloride 100 98 - 107 mmol/L 04/01/2017 1:57 AM [facility] CO2 22.0(L) 26.0 - 30.0 mmol/L 04/01/2017 1:57 AM [facility] Calcium 9.0 8.4 - 10.2 mg/dL 04/01/2017 1:57 AM [facility] Total Protein 6.9 6.3 - 8.2 g/dL 04/01/2017 1:57 AM [facility] Albumin 3.90 3.50 - 5.00 g/dL 04/01/2017 1:57 AM [facility] ALT (SGPT) 29 13 - 69 U/L 04/01/2017 1:57 AM [facility] Comment:Specimen hemolyzed. Results may be affected. AST (SGOT) 19 15 - 46 U/L 04/01/2017 1:57 AM [facility] Comment:Specimen hemolyzed. Results may be affected. Alkaline Phosphatase 77 38 - 126 U/L 04/01/2017 1:57 AM [facility] Comment:Specimen hemolyzed. Results may be affected. Total Bilirubin 0.5 0.2 - 1.3 mg/dL 04/01/2017 1:57 AM [facility] eGFR Non Amer 45(L) >60 mL/min/1.7 3 04/01/2017 1:57 AM [facility] Globulin 3.0 gm/dL 04/01/2017 1:57 AM [facility] A/G Ratio 1.3 1.0 - 2.0 g/dL 04/01/2017 1:57 AM [facility] BUN/Creatinine Ratio 9.3 7.1 - 23.5 04/01/2017 1:57 AM [facility] Anion Gap 13.4 mmol/L 04/01/2017 1:57 AM [facility] Blood Venipuncture / Unknown 04/01/2017 1:25 AM EDT 04/01/2017 1:31 AM EDT Narrative [facility] - 04/01/2017 1:57 AM EDT Abnormal [...] BLOOD ORDERABLES Final Result Performing Organization Address City/[facility] Co de Phone Number [facility]
[address] [place] [address], * (ABNORMAL) POC Glucose Fingerstick (04/01/2017 1:20 AM EDT) Glucose 513(HH) 70 - 130 mg/dL 04/01/2017 1:25 AM EDT [facility] Comment:Serial Number: [id number] Blood 04/01/2017 1:20 AM EDT 04/01/2017 1:25 AM EDT No Known Provider POINT OF CARE TEST ORDERABLES Final Result Performing Organization Address [facility] Co de Phone Number [facility]
[address] [place] [address], [place] [phone] documented in this encounter Visit Diagnoses Diagnosis [...] RN) documented in this encounter Care Teams [employer] Clerk Relationship Specialty Start Date End Date Jaquan Conley MD [address] [place] [id number] PCP - General 01/25/17 09/21/17 documented as of this encounter
--- OUTSIDE RECORDS SUMMARY | 2024-06-11 08:39 | XMS_ITS | Encounter Summary ---
[facility] Organization [facility] Address [address] [place] [address] Care Team Providers Care Core Sticker Name Role Phone Jaquan Conley MD Primary Care Provider [phone] Reason for Visit * Reason Comments Flank Pain Encounter Details Date Type Department Care Team (Late st Contact Info) Description 05/10/2017 12:39 PM EDT - 05/10/2017 7:05 PM EDT Emergency [facility] [address] [place] [phone] Tatum James MD [address] [place] [address] Hyperglycemia (Primary Dx); Noncompliance with medication regimen; [...] be sent through Care Everywhere. * HYPERGLYCEMIA ([place]) * NONSPECIFIC CHEST PAIN ([place]) documented in this encounter Medications at Time [...] prior to discharge Shaunna Grant RN 05/10/17 [id number] * Pearl Wakefield APRN - 05/10/2017 1:38 [...] to her primary care provider today at [facility] and they referred her here for evaluation. [...] pain, unspecified type Pearl Wakefield APRN 05/10/17 263 Cosigned by Tatum James MD at 05/10/2017 5:55 PM EDT Associated attestation - Tatum James MD - 05/10/2017 5:55 PM EDT For this patient encounter, I reviewed the [employer] SAL[employer] REPRESENTATIVE or PA documentation, treatment plan, [...] - 130 mg/dL 05/10/2017 5:45 PM EDT [facility] Comment:Serial Number: [id number]: [id number] Blood 05/10/2017 5:40 PM EDT 05/10/2017 5:45 PM EDT Tatum James MD POINT OF CARE TEST ORD ERABLES Final Result Performing Organization Address [facility] Co de Phone Number [facility]
[address] [place] [address], * Troponin (05/10/2017 4:39 PM EDT) Troponin I <0.012 0.000 - 0.034 ng/mL 05/10/2017 5:28 PM EDT [facility] Blood Venipuncture / Unknown 05/10/2017 4:39 PM EDT 05/10/2017 4:42 PM EDT Narrative [facility] - 05/10/2017 5:28 PM EDT Normal Patient Upper Reference Limit (URL) (99th Percentile)=0.03 ng/mL Non-AMI Illness Reference Limit=0.03-0.11 ng/mL AMI Confirmation=0.12 ng/mL and above Pearl Wakefield RESEARCH AND DEVELOPMENT DIRECTOR LAB BLOOD ORDERABLES Amy l Result Performing Organization Address City/[facility] Co de Phone Number [facility]
[address] [place] [address], * XR Chest 2 View (05/10/2017 1:58 PM EDT) Anatomical Region Laterality Modality Body N/A Radiographic Kim ging 05/10/2017 2:23 PM EDT Impressions 05/10/2017 2:34 PM EDT No acute cardiopulmonary process. Images were reviewed, interpreted, and dictated by Dr. Morel. Transcribed by Dnag Love PA-C. This report was finalized on [...] None Seen /HPF 05/10/2017 2:10 PM EDT [facility] WBC, UA 0-2(A) None Seen /HPF 05/10/2017 2:10 PM EDT [facility] Bacteria, UA Trace(A) None Seen /HPF 05/10/2017 2:10 PM EDT [facility] Squamous Epithelial Cells, UA 0-2 None Seen, 0-2 /HPF 05/10/2017 2:10 PM EDT [facility] Hyaline Casts, UA None Seen None Seen /LPF 05/10/2017 2:10 PM EDT [facility] Methodology Manual Light Microscopy 05/10/2017 2:10 PM EDT [facility] Urine Urine specimen collection, clean catch / Unknown Collection / Unknown 05/10/2017 1:49 PM EDT 05/10/2017 1:53 PM EDT Pearl Wakefield RESEARCH AND DEVELOPMENT DIRECTOR URINE ORDERABLES Final Re sult [facility]
[address] [place] [address], [place] [phone] * (ABNORMAL) CBC Auto Differential (05/10/2017 1:49 PM EDT) WBC 8.97 4.80 - 10.80 10*3/mm3 05/10/2017 1:57 PM EDT [facility] RBC 4.32 4.20 - 5.40 10*6/mm3 05/10/2017 1:57 PM EDT [facility] Hemoglobin 12.7 12.0 - 16.0 g/dL 05/10/2017 1:57 PM EDT [facility] Hematocrit 36.6(L) 37.0 - 47.0 % 05/10/2017 1:57 PM EDT [facility] MCV 84.7 81.0 - 99.0 fL 05/10/2017 1:57 PM EDT [facility] MCH 29.4 27.0 - 31.0 pg 05/10/2017 1:57 PM EDT [facility] MCHC 34.7 30.0 - 37.0 g/dL 05/10/2017 1:57 PM EDT [facility] RDW 11.4(L) 11.5 - 14.5 % 05/10/2017 1:57 PM EDT [facility] RDW-SD 35.2(L) 37.0 - 54.0 fl 05/10/2017 1:57 PM EDT [facility] MPV 13.5(H) 6.0 - 12.0 fL 05/10/2017 1:57 PM EDT [facility] Platelets 201 130 - 400 10*3/mm3 05/10/2017 1:57 PM EDT [facility] Neutrophil % 54.2 37.0 - 80.0 % 05/10/2017 1:57 PM EDT [facility] Lymphocyte % 37.5 10.0 - 50.0 % 05/10/2017 1:57 PM EDT [facility] Monocyte % 4.5 0.0 - 12.0 % 05/10/2017 1:57 PM EDT [facility] Eosinophil % 3.1 0.0 - 7.0 % 05/10/2017 1:57 PM EDT [facility] Basophil % 0.3 0.0 - 2.5 % 05/10/2017 1:57 PM EDT [facility] Immature Grans % 0.4 0.0 - 0.6 % 05/10/2017 1:57 PM EDT [facility] Neutrophils, Absolute 4.86 2.00 - 6.90 10*3/mm3 05/10/2017 1:57 PM EDT [facility] Lymphocytes, Absolute 3.36 0.60 - 3.40 10*3/mm3 05/10/2017 1:57 PM EDT [facility] Monocytes, Absolute 0.40 0.00 - 0.90 10*3/mm3 05/10/2017 1:57 PM EDT [facility] Eosinophils, Absolute 0.28 0.00 - 0.70 10*3/mm3 05/10/2017 1:57 PM EDT [facility] Basophils, Absolute 0.03 0.00 - 0.20 10*3/mm3 05/10/2017 1:57 PM EDT [facility] Immature Grans, Absolute 0.04 0.00 - 0.06 10*3/mm3 05/10/2017 1:57 PM EDT [facility] nRBC 0.0 0.0 - 0.0 /100 WBC 05/10/2017 1:57 PM EDT [facility] Blood Venipuncture / Unknown 05/10/2017 1:49 PM EDT 05/10/2017 1:53 PM EDT us Pearl Wakefield RESEARCH AND DEVELOPMENT DIRECTOR LAB BLOOD ORDERABLES Amy foreman Result [facility]
[address] [place] [address], [place] [phone] * Troponin (05/10/2017 1:49 PM EDT) Troponin I <0.012 0.000 - 0.034 ng/mL 05/10/2017 2:24 PM EDT [facility] Blood Venipuncture / Unknown 05/10/2017 1:49 PM EDT 05/10/2017 1:53 PM EDT [facility] - 05/10/2017 2:24 PM EDT Normal Patient Upper Reference Limit (URL) (99th Percentile)=0.03 ng/mL Non-AMI Illness Reference Limit=0.03-0.11 ng/mL AMI Confirmation=0.12 ng/mL and above Pearl Yanezhead RESEARCH AND DEVELOPMENT DIRECTOR LAB BLOOD ORDERABLES Amy l Result Performing Organization Address City/[facility]/ZIP Co de Phone Number [facility]
[address] [place] [address], [place] [phone] * D-dimer, Quantitative (05/10/2017 1:49 PM EDT) Pathologist [facility] D-Dimer, Quantitative 270 0 - 500 ng/mL (FEU) 05/10/2017 2:36 PM EDT [facility] Blood Venipuncture / Unknown 05/10/2017 1:49 PM EDT 05/10/2017 1:53 PM EDT Pearl Foreman Wakefield RESEARCH AND DEVELOPMENT DIRECTOR LAB BLOOD ORDERABLES Amy l Result [facility]
[address] [place] [address], [place] [phone] * (ABNORMAL) Urinalysis With / Culture If Indicated - Urine, Clean Catch (05/10/2017 1:49 PM EDT) Color, UA Yellow Yellow, Straw 05/10/2017 1:58 PM EDT [facility] Appearance, UA Clear Clear 05/10/2017 1:58 PM EDT [facility] pH, UA 5.5 5.0 - 8.0 05/10/2017 1:58 PM EDT [facility] Specific [place], UA 1.015 1.005 - 1.030 05/10/2017 1:58 PM EDT [facility] Glucose, UA 500 mg/dL (2+)(A) Negative 05/10/2017 1:58 PM EDT [facility] Ketones, UA Negative Negative 05/10/2017 1:58 PM EDT [facility] Bilirubin, UA Negative Negative 05/10/2017 1:58 PM EDT [facility] Blood, UA Small (1+)(A) Negative 05/10/2017 1:58 PM EDT [facility] Protein, UA >=300 mg/dL (3+)(A) Negative 05/10/2017 1:58 PM EDT [facility] Leuk Esterase, UA Negative Negative 05/10/2017 1:58 PM EDT [facility] Nitrite, UA Negative Negative 05/10/2017 1:58 PM EDT [facility] Urobilinogen, UA 0.2 E.U./dL 0.2 - 1.0 E.U./dL 05/10/2017 1:58 PM EDT [facility] Urine Urine specimen collection, clean catch / Unknown Collection / Unknown 05/10/2017 1:49 PM EDT 05/10/2017 1:53 PM EDT us Pearl Wakefield RESEARCH AND DEVELOPMENT DIRECTOR URINE ORDERABLES Final Re sult [facility]
[address] [place] [address], [place] [phone] * Lipase (05/10/2017 1:49 PM EDT) Lipase 108 23 - 300 U/L 05/10/2017 2:24 PM EDT [facility] Blood Venipuncture / Unknown 05/10/2017 1:49 PM EDT 05/10/2017 1:53 PM EDT us Pearl Wakefield RESEARCH AND DEVELOPMENT DIRECTOR LAB BLOOD ORDERABLES Amy kellen Result [facility]
[address] [place] [address], * (ABNORMAL) Comprehensive Metabolic Panel (05/10/2017 1:49 PM EDT) Glucose 518(HH) 74 - 98 mg/dL 05/10/2017 2:37 PM EDT [facility] BUN 22(H) 7 - 20 mg/dL 05/10/2017 2:37 PM EDT [facility] Creatinine 1.40(H) 0.60 - 1.30 mg/dL 05/10/2017 2:37 PM EDT [facility] Sodium 133(L) 137 - 145 mmol/L 05/10/2017 2:37 PM EDT [facility] Potassium 4.8 3.5 - 5.1 mmol/L 05/10/2017 2:37 PM EDT [facility] Chloride 103 98 - 107 mmol/L 05/10/2017 2:37 PM EDT [facility] CO2 17.0(L) 26.0 - 30.0 mmol/L 05/10/2017 2:37 PM EDT [facility] Calcium 9.3 8.4 - 10.2 mg/dL 05/10/2017 2:37 PM EDT [facility] Total Protein 6.9 6.3 - 8.2 g/dL 05/10/2017 2:37 PM EDT [facility] Albumin 3.80 3.50 - 5.00 g/dL 05/10/2017 2:37 PM EDT [facility] ALT (SGPT) 27 13 - 69 U/L 05/10/2017 2:37 PM EDT [facility] AST (SGOT) 13(L) 15 - 46 U/L 05/10/2017 2:37 PM EDT [facility] Alkaline Phosphatase 94 38 - 126 U/L 05/10/2017 2:37 PM EDT [facility] Total Bilirubin 0.3 0.2 - 1.3 mg/dL 05/10/2017 2:37 PM EDT [facility] eGFR Non Amer 45(L) >60 mL/min/1.7 3 05/10/2017 2:37 PM EDT [facility] Globulin 3.1 gm/dL 05/10/2017 2:37 PM EDT [facility] A/G Ratio 1.2 1.0 - 2.0 g/dL 05/10/2017 2:37 PM EDT [facility] BUN/Creatinine Ratio 15.7 7.1 - 23.5 05/10/2017 2:37 PM EDT [facility] Anion Gap 17.8 mmol/L 05/10/2017 2:37 PM EDT [facility] Blood Venipuncture / Unknown 05/10/2017 1:49 PM EDT 05/10/2017 1:53 PM EDT [facility] - 05/10/2017 2:37 PM EDT Abnormal estimated GFR should be followed by more specific studies to confirm end stage chronic renal disease. The equation used for calculation may not be accurate for patients less than 19 years old, greater than 70 years old, patients at extremes of weight, malnutrition, or with acute renal dysfunction. us Pearl Wakefield RESEARCH AND DEVELOPMENT DIRECTOR LAB BLOOD ORDERABLES Amy foreman Result [facility]
[address] [place] [id number], * (ABNORMAL) Blood Gas, Arterial With Co-Ox (05/10/2017 1:29 PM EDT) Site Arterial Line 05/10/2017 1:29 PM EDT [facility] THERAPY Kamari's Test Positive 05/10/2017 1:29 PM EDT [facility] THERAPY pH, Arterial 7.356 7.300 - 7.500 pH units 05/10/2017 1:29 PM EDT [facility] THERAPY pCO2, Arterial 36.3 35.0 - 45.0 mm Hg 05/10/2017 1:29 PM EDT [facility] THERAPY pO2, Arterial 28.4(LL) 75.0 - 100.0 mm Hg 05/10/2017 1:29 PM EDT [facility] THERAP[facility] HCO3, Arterial 20.3(L) 22.0 - 28.0 mmol/L 05/10/2017 1:29 PM EDT [facility] THERAP[facility] Base Excess, Arterial -5.2 mmol/L 05/10/2017 1:29 PM EDT [facility] THERAPY O2 Saturation, Arterial 54.5 % 05/10/2017 1:29 PM EDT [facility] THER[facility] Hemoglobin, Blood Gas 13.0 12 - 18 g/dL 05/10/2017 1:29 PM EDT [facility] THERAPY Oxyhemoglobin 52.6(L) 94 - 99 % 05/10/2017 1:29 PM EDT [facility] THERAPY Methemoglobin 0.80 % 05/10/2017 1:29 PM EDT [facility] THER[facility] Carboxyhemoglobin 2.6 % 017 1:29 PM EDT [facility] THERAPY Modality Room Air 05/10/2017 1:29 PM EDT [facility] THERAPY FIO2 21 % 05/10/2017 1:29 PM EDT [facility] THERAPY Arterial Blood 05/10/2017 1: 29 PM EDT 05/10/2017 1:27 PM EDT Tatum James MD LAB BLOOD ORDERABLES F inal Result [facility] THERAPY
[address] [place], [place] [address] documented in this encounter Visit Diagnoses Diagnosis [...] 1306 documented in this encounter Care Teams Core Sticker Relationship Specialty Start Date End Date Jaquan Conley MD [address] [place] [id number] PCP - General 01/25/17 09/21/17 documented as of this encounter
--- OUTSIDE RECORDS SUMMARY | 2024-06-11 08:39 | XMS_ITS | Encounter Summary ---
Author Organization [facility] Address [address] [place] [address] Care Team Providers Care Porter Marina Name Role Phone Jaquan Conley MD Primary Care Provider + [phone] Encounter Details Date Type Department Care Team (Late st Contact Info) Description 06/27/2023 Telephone [facility] [address] [facility], [address] [place] [address] Erica Ventura PA [address] [facility] [address] [place] [address] Social History Tobacco Use Types [...] optimal time of day to reach caller: [phone] Note: Please do not reply to this [...] Description 08/28/2024 11:00 AM EST Office Visit [facility] [address] [place] [address] Erica Ventura PA [address] [facility] [address] [place] [address] documented as of this encounter Visit Diagnoses Not on filedocumented in this encounter Additional Health Concerns Assessment Noted Time A fall risk assessment has been complete d for the patient 06/20/2023 12:51 PM EST A Body Mass Index follow-up plan has been documented for the patient 06/20/2023 2:00 PM EST documented as of this encounter Care Teams Porter Marina Relationship Specialty Start Date End Date Jaquan Conley MD [address] [place] [id number] PCP - General 11/28/20 documented as of this encounter
--- OUTSIDE RECORDS SUMMARY | 2024-06-11 08:39 | XMS_ITS | Encounter Summary ---
[facility] Address [address] [place] [address] Care Team Providers Care Cover Marker Name Role Phone Lauren Slade ANJU Primary Care Provider [phone] Reason for Visit * Reason Comments Hyperglycemia Chest Pain Encounter Details Date Type Department Care Team (Late st Contact Info) Description 01/31/2018 2:08 PM EDT - 01/31/2018 5:54 PM EDT Emergency [facility] [address] [place] [address] [phone] Mickey Cerda MD [address] [place] [address] Hyperglycemia without ketosis (Primary Dx); [...] Care Everywhere. * Blood Glucose Monitoring Adult (Montserratian) * Hyperglycemia (Montserratian) * Glomerular Filtration Rate (Montserratian) * Nonspecific Chest Pain [id number] (Montserratian) documented in this encounter Medications at Time [...] she is finished. Ladan Young RN 01/31/18 1656 * Ladan Young RN - 01/31/2018 3:02 PM EDT Brandon Crowder PA-C notified of B/P of 153/94. Changed order for Clonidine. Ladan Young RN 01/31/18 1526 * Ladan Young RN - 01/31/2018 2:55 PM EDT Patient unable to void at this time. Ladan Young RN 01/31/18 4280 * Vinny Crowder PA-C - 01/31/2018 2:06 [...] hyperlipidemia, and diabetes. 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: 600 Severity: Moderate Onset quality: Sudden Duration: [...] For this patient encounter, I reviewed the PEDIATRIC OPHTHALMOLOGIST or PA documentation, treatment plan, and medical [...] - 0.034 ng/mL 01/31/2018 5:41 PM EDT [facility] Blood Left upper arm structure / Unknown Venipuncture / Unknown 01/31/2018 5:08 PM EDT 01/31/2018 5:12 PM EDT Narrative [facility] - 01/31/2018 5:41 PM EDT Normal Patient Upper Reference Limit (URL) (99th Percentile)=0.03 ng/mL Non-AMI Illness Reference Limit=0.03-0.11 ng/mL AMI Confirmation=0.12 ng/mL and above Vinny Crowder PA-C LAB BLOOD ORDERABLES Fi nal Result Performing Organization Address City/[facility] Co de Phone Number [facility]
[address] [place] [address], * (ABNORMAL) POC Glucose Once (01/31/2018 4:38 PM EDT) Glucose 357(H) 70 - 130 mg/dL 02/01/2018 9:55 AM EDT [facility] Comment:Serial Number: [id number] Blood 01/31/2018 4:38 PM EDT 02/01/2018 9:55 AM EDT Mickey Cerda MD POINT OF CARE TEST ORDERABL ES Final Result Performing Organization Address [facility] Co de Phone Number [facility]
[address] [place] [address], * XR Chest 2 View (01/31/2018 3:20 [...] None Seen /HPF 01/31/2018 3:36 PM EDT [facility] WBC, UA 0-2(A) None Seen /HPF 01/31/2018 3:36 PM EDT [facility] Bacteria, UA Trace(A) None Seen /HPF 01/31/2018 3:36 PM EDT [facility] Squamous Epithelial Cells, UA 0-2 None Seen, 0-2 /HPF 01/31/2018 3:36 PM EDT [facility] Hyaline Casts, UA None Seen None Seen /LPF 01/31/2018 3:36 PM EDT [facility] Methodology Manual Light Microscopy 01/31/2018 3:36 PM EDT [facility] Urine Urine specimen collection, clean catch / Unknown Collection / Unknown 01/31/2018 3:20 PM EDT 01/31/2018 3:22 PM EDT us Vinny Crowder PA-C URINE ORDERABLES Final Result [facility]
[address] [place] [address], [place] [phone] * (ABNORMAL) Urinalysis With Microscopic If Indicated (No Culture) - Urine, Clean Catch (01/31/2018 3:20 PM EDT) Color, UA Yellow Yellow, Straw 01/31/2018 3:31 PM EDT [facility] Appearance, UA Clear Clear 01/31/2018 3:31 PM EDT [facility] pH, UA 6.0 5.0 - 8.0 01/31/2018 3:31 PM EDT [facility] Specific Norvell, UA 1.020 1.005 - 1.030 01/31/2018 3:31 PM EDT [facility] Glucose, UA 500 mg/dL (2+)(A) Negative 01/31/2018 3:31 PM EDT [facility] Ketones, UA Negative Negative 01/31/2018 3:31 PM EDT [facility] Bilirubin, UA Negative Negative 01/31/2018 3:31 PM EDT [facility] Blood, UA Trace(A) Negative 01/31/2018 3:31 PM EDT [facility] Protein, UA >=300 mg/dL (3+)(A) Negative 01/31/2018 3:31 PM EDT [facility] Leuk Esterase, UA Negative Negative 01/31/2018 3:31 PM EDT [facility] Nitrite, UA Negative Negative 01/31/2018 3:31 PM EDT [facility] Urobilinogen, UA 0.2 E.U./dL 0.2 - 1.0 E.U./dL 01/31/2018 3:31 PM EDT [facility] Urine Urine specimen collection, clean catch / Unknown Collection / Unknown 01/31/2018 3:20 PM EDT 01/31/2018 3:22 PM EDT Vinny Crowder PA-C URINE ORDERABLES Final Result [facility]
[address] [place] [id number], * Urine Drug Screen - Urine, Clean Catch (01/31/2018 3:20 PM EDT) THC, Screen, Urine Negative Negative 2017 3:36 PM EDT [facility] Phencyclidine (PCP), Urine Negative Negative 01/31/2018 3:36 PM EDT [facility] Cocaine Screen, Urine Negative Negative 01/31/2018 3:36 PM EDT [facility] Methamphetamine, Ur Negative Negative 01/31 3:36 PM EDT [facility] Opiate Screen Negative Negative 01/31/2018 3:36 PM EDT [facility] Amphetamine Screen, Urine Negative Negative 01/31/2018 3:36 PM EDT [facility] Benzodiazepine Screen, Urine Negative Negative 01/31/2018 3:36 PM EDT [facility] Tricyclic Antidepressants Screen Negative Negative 01/31/2018 3:36 PM EDT [facility] Methadone Screen, Urine Negative Negative 01/31/2018 3:36 PM EDT [facility] Barbiturates Screen, Urine Negative Negative 01/31/2018 3:36 PM EDT [facility] Oxycodone Screen, Urine Negative Negative 01/31/2018 3:36 PM EDT [facility] Propoxyphene Screen Negative Negative 01/31 3:36 PM EDT [facility] Buprenorphine, Screen, Urine Negative Negative 01/31/2018 3:36 PM T [facility] Urine Urine specimen collection, clean catch / Unknown Collection / Unknown 01/31/2018 3:20 PM EDT 01/31/2018 3:22 PM EDT Narrative [facility] - 01/31/2018 3:36 PM EDT Limitations of this procedure include the possibility of false positives due to interfering substances in the urine sample. Clinical data should be correlated with any questionable result. Positive results should be considered Presumptive Positive until results are confirmed with another methodology such as HPLC or GCMS. Vinny Crowder PA-C URINE ORDERABLES Final Result [facility]
[address] [place] [address], [place] [phone] * (ABNORMAL) Blood Gas, Arterial With Co-Ox (01/31/2018 2:41 PM EDT) Site Left Radial 01/31/2018 2:41 PM EDT [facility] Kamari's Test Positive 01/31/2018 2:41 PM EDT [facility] pH, Arterial 7.365 7.300 - 7.500 pH units 01/31/2018 2:41 PM EDT [facility] pCO2, Arterial 32.5(L) 35.0 - 45.0 mm Hg 01/31/2018 2:41 PM EDT [facility] pO2, Arterial 99.6 75.0 - 100.0 mm Hg 01/31/2018 2:41 PM EDT [facility] HCO3, Arterial 18.6(L) 22.0 - 28.0 mmol/L 01/31/2018 2:41 PM EDT [facility] Base Excess, Arterial -6.0(L) 0.0 - 2.0 mmol/L 01/31/2018 2:41 PM EDT [facility] O2 Saturation, Arterial 98.1 94.0 - 100.0 % 01/31/2018 2:41 PM EDT [facility] Hemoglobin, Blood Gas 10.8(L) 12 - 18 g/dL 01/31/2018 2:41 PM EDT [facility] Hematocrit, Blood Gas 33.2 % 01/31/2018 2:41 PM EDT [facility] Oxyhemoglobin 93.7(L) 94 - 99 % 01/31/2018 2:41 PM EDT [facility] Methemoglobin 1.40 0.00 - 1.50 % 01/31/2018 2:41 PM EDT [facility] Carboxyhemoglobin 3.1(H) 0 - 2 % 018 2:41 PM EDT [facility] Barometric Pressure for Blood Gas 733 mmHg 01/31/2018 2:41 PM EDT [facility] Modality N/A 01/31/2018 2:41 PM EDT [facility] FIO2 21 % 01/31/2018 2:41 PM EDT [facility] Ventilator Mode NA 8 2:41 PM EDT [facility] Collected by db 01/31/2018 2:41 PM EDT [facility] pH, Temp Corrected pH Units 2017 2:41 PM EDT [facility] pCO2, Temperature Corrected 35 - 45 mm Hg 01/31/2018 2:41 PM EDT [facility] pO2, Temperature Corrected 83 - 108 mm Hg 01/31/2018 2:41 PM EDT [facility] Arterial Blood 01/31/2018 2: 41 PM EDT 01/31/2018 2:41 PM EDT Mickey Cerda MD LAB BLOOD ORDERABLES Final Result [facility]
[address] [place] [address], * Lipase (01/31/2018 2:15 PM EDT) Lipase 99 23 - 300 U/L 01/31/2018 2:49 PM EDT [facility] Blood Venipuncture / Unknown 01/31/2018 2:15 PM EDT 01/31/2018 2:22 PM EDT Vinny Crowder PA-C LAB BLOOD ORDERABLES Fi nal Result [facility]
[address] [phone] * (ABNORMAL) Comprehensive Metabolic Panel (01/31/2018 2:15 PM EDT) Glucose 469(HH) 74 - 98 mg/dL 01/31/2018 2:51 PM T [facility] Comment:Glucose >180, Hemogl obin A1C recommended. BUN 19 7 - 20 mg/dL 01/31/2018 2:51 PM T [facility] Comment:Specimen hemolyzed. Results may be affected. Creatinine 1.60(H) 0.60 - 1.30 mg/dL 01/31/2018 2:51 PM T [facility] Sodium 133(L) 137 - 145 mmol/L 01/31/2018 2:51 PM EDT [facility] Potassium 5.4(H) 3.5 - 5.1 mmol/L 01/31/2018 2:51 PM T [facility] Comment:Specimen hemolyzed. Results may be affected. Chloride 106 98 - 107 mmol/L 01/31/2018 2:51 PM [facility] CO2 22.0(L) 26.0 - 30.0 mmol/L 01/31/2018 2:51 PM [facility] Calcium 8.6 8.4 - 10.2 mg/dL 01/31/2018 2:51 PM [facility] Total Protein 6.1(L) 6.3 - 8.2 g/dL 01/31/2018 2:51 PM [facility] Albumin 3.30(L) 3.50 - 5.00 g/dL 01/31/2018 2:51 PM [facility] ALT (SGPT) 19 13 - 69 U/L 01/31/2018 2:51 PM T [facility] Comment:Specimen hemolyzed. Results may be affected. AST (SGOT) 14(L) 15 - 46 U/L 01/31/2018 2:51 PM T [facility] Comment:Specimen hemolyzed. Results may be affected. Alkaline Phosphatase 77 38 - 126 U/L 01/31/2018 2:51 PM T [facility] Comment:Specimen hemolyzed. Results may be affected. Total Bilirubin 0.3 0.2 - 1.3 mg/dL 01/31/2018 2:51 PM EDT [facility] eGFR Non Amer 38(L) >60 mL/min/1.7 3 01/31/2018 2:51 PM EDT [facility] Globulin 2.8 gm/dL 01/31/2018 2:51 PM EDT [facility] A/G Ratio 1.2 1.0 - 2.0 g/dL 01/31/2018 2:51 PM EDT [facility] BUN/Creatinine Ratio 11.9 7.1 - 23.5 01/31/2018 2:51 PM EDT [facility] Anion Gap 10.4 10.0 - 20.0 mmol/L 01/31/2018 2:51 PM EDT [facility] Blood Venipuncture / Unknown 01/31/2018 2:15 PM EDT 01/31/2018 2:22 PM EDT Narrative [facility] - 01/31/2018 2:51 PM EDT GFR Normal >60 Chronic Kidney Disease <60 Kidney Failure <15 Vinny Crowder PA-C LAB BLOOD ORDERABLES Fi nal Result [facility]
[address] [place] [id number], * (ABNORMAL) CBC Auto Differential (01/31/2018 2:15 PM EDT) WBC 7.72 4.80 - 10.80 10*3/mm3 01/31/2018 2:26 PM EDT [facility] RBC 3.87(L) 4.20 - 5.40 10*6/mm3 01/31/2018 2:26 PM EDT [facility] Hemoglobin 11.3(L) 12.0 - 16.0 g/dL 01/31/2018 2:26 PM EDT [facility] Hematocrit 34.2(L) 37.0 - 47.0 % 01/31/2018 2:26 PM EDT [facility] MCV 88.4 81.0 - 99.0 fL 01/31/2018 2:26 PM EDT [facility] MCH 29.2 27.0 - 31.0 pg 01/31/2018 2:26 PM EDT [facility] MCHC 33.0 30.0 - 37.0 g/dL 01/31/2018 2:26 PM EDT [facility] RDW 11.8 11.5 - 14.5 % 01/31/2018 2:26 PM EDT [facility] RDW-SD 37.5 37.0 - 54.0 fl 01/31/2018 2:26 PM EDT [facility] MPV 13.0(H) 6.0 - 12.0 fL 01/31/2018 2:26 PM EDT [facility] Platelets 195 130 - 400 10*3/mm3 01/31/2018 2:26 PM EDT [facility] Neutrophil % 50.3 37.0 - 80.0 % 01/31/2018 2:26 PM EDT [facility] Lymphocyte % 41.7 10.0 - 50.0 % 01/31/2018 2:26 PM EDT [facility] Monocyte % 4.0 0.0 - 12.0 % 01/31/2018 2:26 PM EDT [facility] Eosinophil % 3.1 0.0 - 7.0 % 01/31/2018 2:26 PM EDT [facility] Basophil % 0.4 0.0 - 2.5 % 01/31/2018 2:26 PM EDT [facility] Immature Grans % 0.5 0.0 - 0.6 % 01/31/2018 2:26 PM EDT [facility] Neutrophils, Absolute 3.88 2.00 - 6.90 10*3/mm3 01/31/2018 2:26 PM EDT [facility] Lymphocytes, Absolute 3.22 0.60 - 3.40 10*3/mm3 01/31/2018 2:26 PM EDT [facility] Monocytes, Absolute 0.31 0.00 - 0.90 10*3/mm3 01/31/2018 2:26 PM EDT [facility] Eosinophils, Absolute 0.24 0.00 - 0.70 10*3/mm3 01/31/2018 2:26 PM EDT [facility] Basophils, Absolute 0.03 0.00 - 0.20 10*3/mm3 01/31/2018 2:26 PM EDT [facility] Immature Grans, Absolute 0.04 0.00 - 0.06 10*3/mm3 01/31/2018 2:26 PM EDT [facility] nRBC 0.0 0.0 - 0.0 /100 WBC 01/31/2018 2:26 PM EDT [facility] Blood Venipuncture / Unknown 01/31/2018 2:15 PM EDT 01/31/2018 2:22 PM EDT Vinny MENDEZ-Todd LAB BLOOD ORDERABLES Fi nal Result [facility]
[address] [place] [address], * aPTT (01/31/2018 2:15 PM EDT) PTT 25.2 25.0 - 36.0 seconds 01/31/2018 2:46 PM EDT [facility] Blood Venipuncture / Unknown 01/31/2018 2:15 PM EDT 01/31/2018 2:22 PM EDT Vinny MENDEZ-Todd LAB BLOOD ORDERABLES Fi nal Result [facility]
[address] [place] [address], [place] [phone] * Protime-INR (01/31/2018 2:15 PM EDT) Protime 10.4 9.3 - 12.1 Seconds 01/31/2018 2:46 PM EDT [facility] INR 0.93 0.90 - 1.10 01/31/2018 2:46 PM EDT [facility] Blood Venipuncture / Unknown 01/31/2018 2:15 PM EDT 01/31/2018 2:22 PM EDT Vinny MENDEZ-C LAB BLOOD ORDERABLES Fi nal Result [facility]
[address] [place] [address], [place] [phone] * D-dimer, Quantitative (01/31/2018 2:15 PM EDT) D-Dimer, Quantitative 287 0 - 500 ng/mL (FEU) 01/31/2018 3:07 PM EDT [facility] Blood Venipuncture / Unknown 01/31/2018 2:15 PM EDT 01/31/2018 2:22 PM EDT Vinny MENDEZ-C LAB BLOOD ORDERABLES Fi nal Result Performing Organization Address [facility]/ZIP Co de Phone Number [facility]
[address] [place] [address], [place] [phone] * Troponin (01/31/2018 2:15 PM EDT) Pathologist [facility] Troponin I <0.012 0.000 - 0.034 ng/mL 01/31/2018 2:49 PM EDT [facility] Blood Venipuncture / Unknown 01/31/2018 2:15 PM EDT 01/31/2018 2:22 PM EDT Narrative [facility] - 01/31/2018 2:49 PM EDT Normal Patient Upper Reference Limit (URL) (99th Percentile)=0.03 ng/mL Non-AMI Illness Reference Limit=0.03-0.11 ng/mL AMI Confirmation=0.12 ng/mL and above Vinny MENDEZ-C LAB BLOOD ORDERABLES Fi nal Result [facility]
[address] [place] [id number], * Lactic Acid, Plasma (01/31/2018 2:15 PM EDT) Lactate 1.4 0.5 - 2.0 mmol/L 01/31/2018 2:37 PM EDT [facility] Blood Venipuncture / Unknown 01/31/2018 2:15 PM EDT 01/31/2018 2:22 PM EDT Vinny Crowder PA-C LAB BLOOD ORDERABLES Fi nal Result [facility]
[address] [place] [address], * (ABNORMAL) POC Glucose Once (01/31/2018 2:06 PM EDT) Glucose 515(HH) 70 - 130 mg/dL 02/01/2018 9:55 AM EDT [facility] Comment:Serial Number: [id number] Blood 01/31/2018 2:06 PM EDT 02/01/2018 9:55 AM EDT Mickey Cerda MD POINT OF CARE TEST ORDERABL ES Final Result [facility]
[address] [place] [address], documented in this encounter Visit Diagnoses Diagnosis [...] 1408 documented in this encounter Care Teams Cover Marker Relationship Specialty Start Date End Date Lauren Slade APRN [facility], [address] [place] [address] PCP - General Family Medicine 09/22/17 02/05/18 documented as of this encounter
--- OUTSIDE RECORDS SUMMARY | 2024-06-11 08:40 | XMS_ITS | Encounter Summary ---
Author Organization [facility] Address [address] [place] [address] Care Team Providers Care Material Clerk Name Role Phone Jaquan Conley MD Primary Care Provider + [phone] Encounter Details Date Type Department Care Team (Late st Contact Info) Description 08/13/2021 Telephone [facility] Endocrinology 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
--- OUTSIDE RECORDS SUMMARY | 2024-06-11 08:40 | XMS_ITS | Encounter Summary ---
Author Organization [facility] Address [address] [place] [address] Care Team Providers Care Food Service Associate Name Role Phone Jaquan Conley MD Primary Care Provider + [phone] Reason for Visit * Reason Onset Date Comments HCN - Patient Message 06/07/2023 Encounter Details Date Type Department Care Team (Late st Contact Info) Description 06/07/2023 Telephone [facility] [address] [place] [address] Khloe Elias, ANJU [address] [address] HCN - Patient Message Social [...] Clinical Concern/Question Reason for Call: Simran, with [facility] is requesting the most recent office notes on this pt. Best contact number: Other: [phone] Optimal time of day to reach caller: ANYTIME Additional comments/information from caller: None Note: Please do not reply to this message. Follow-up communication and further actions as a result of this message need to be communicated with the patient directly, if the patient is not active onMyChart. If the patient is active on MyChart, they will receive notification of the communication/outcome via [employer]. documented in this encounter Plan of Treatment Upcoming Encounters Date Type Department Care Team (Late st Contact Info) Description 08/28/2024 11:00 AM EST Office Visit [facility] Endocrinology [address], [address] [place] [address] Erica Ventura PA [address] [facility] [place] [address] documented as of this encounter Visit Diagnoses Not on filedocumented in this encounter Additional Health Concerns Assessment Noted Time A fall risk assessment has been complete d for the patient 12/16/2022 12:47 PM EDT A Body Mass Index follow-up plan has been documented for the patient 12/16/2022 1:35 PM EDT documented as of this encounter Care Teams Food Service Associate Relationship Specialty Start Date End Date Jaquan Conley MD [address] [place] [address] PCP - General 11/28/20 documented as of this encounter
--- OUTSIDE RECORDS SUMMARY | 2024-06-11 08:40 | XMS_ITS | Encounter Summary ---
Author Organization [facility] Address [address] [place] [place] [address] Care Team Providers Care Ged Preparation Teacher Name Role Phone Jaquan Conley MD Primary Care Provider + [phone] Reason for Visit * Reason Onset Date Comments Med Refill 10/23/2021 Encounter Details Date Type Department Care Team (Late st Contact Info) Description 10/23/2021 Refill [facility] Diabetes Education [address] [facility], [address] [place] [address] Rosamaria Purcell, CDE, RD [address] [facility] [address] [place] [address] Type 1 diabetes mellitus with [...] 11:00 AM EST Office Visit [facility] Endocrinology [address], [address] [place] [address] Erica Ventura PA [address] [place] [address] documented as of this encounter Visit Diagnoses Diagnosis 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
--- OUTSIDE RECORDS SUMMARY | 2024-06-11 08:40 | XMS_ITS | Encounter Summary ---
Author Organization [facility] Address [address] [place] [address] Care Team Providers Care Business Support Assistant Name Role Phone Jaquan Conley MD Primary Care Provider + [phone] Encounter Details Date Type Department Care Team (Late st Contact Info) Description 11/17/2022 Orders Only [facility] [address] [facility], [address] [place] [address] Mesha Patton RN [address] [facility] [address] [place] [address] Type 1 diabetes mellitus with [...] Description 08/28/2024 11:00 AM EST Office Visit [facility] Endocrinology [address], [address] [place] [address] Erica Ventura PA [address] [place] [address] documented as of this encounter [...] the two equations, please see laboratory website: ??[email or web address] Blood Venous blood specimen / Unknown Venipuncture / Unknown 12/16/2022 1:40 PM EDT 12/16/2022 3:27 PM EDT Erica MENDEZ LAB BLOOD ORDERABLES Final Result Performing Organization Address [facility] de Phone Number HEALTHCARE LAB [address] [place] [address] * (ABNORMAL) C-peptide (12/16/2022 1:40 PM EDT) [facility] Signature C Peptide 10.43(H) 0.81 - 5.30 ng/mL 12/16/2022 7:17 PM EDT [employer] LAB Comment:To be drawn concurre ntly with basic metabolic pane Blood Venous blood specimen / Unknown Venipuncture / Unknown 12/16/2022 1:40 PM EDT 12/16/2022 3:27 PM EDT Erica MENDEZ LAB BLOOD ORDERABLES Final Result Performing Organization Address 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
--- OUTSIDE RECORDS SUMMARY | 2024-06-11 08:40 | XMS_ITS ---
Author Organization [facility] Address [address] [place] [address] Care Team Providers Care Supervisor Trust Accounts Name Role Phone Jaquan Conley MD Primary Care Provider + [phone] Transplant Episode Kidney Candidate [facility] ([place], [place]) [facility] Evaluation began on 08/17/2018 Marked as Ineligible on 11/10/2018 Reason: Candidate Workup Incomplete Kidney CoordinatorHilaria Hsu RN Phone: N/A Fax: N/A Email: N/A Scores Score Value Updated Exceptions/Reas ons CPRA Not available EPTS (Calc) 16 06/11/2024 Care Team Name Role Phone Fax Email Hilaria Hsu RN Kidney Coordinator N/A N/A N/A Crys Gilman Pararescue Manager N/A N/A N/A Mukul Stevens MD Referring Physician N/A N/A N/A Events Pre-Transplant Referred: 07/24/2018 Evaluation began: 08/17/2018
--- OUTSIDE RECORDS SUMMARY | 2024-06-11 08:40 | XMS_ITS | Encounter Summary ---
Author Organization [facility] Address [address] [place] [address] Care Team Providers Care Cover Cutter Name Role Phone Jaquan Conley MD Primary Care Provider + [phone] Encounter Details Date Type Department Care Team (Late st Contact Info) Description 01/26/2021 Orders Only [facility] [address] , [address] [place] [address] Valentine Boggs, VIVIE, RD [address] [facility] [address] [place] [address] Social History Tobacco Use Types [...] [facility] [address] [place] [address] Erica Ventura PA [address] [facility] [address] [place] [address] documented as of this encounter Visit Diagnoses Not on filedocumented in this encounter Care Teams Cover Cutter Relationship Specialty Start Date End Date Jaquan Conley MD [address] [place], [place] [id number] PCP - General 11/28/20 documented as of this encounter
--- OUTSIDE RECORDS SUMMARY | 2024-06-11 08:40 | XMS_ITS | Encounter Summary ---
Author Organization Address [address] [place] [address] Care Team Providers Care Geospatial Image Analyst Name Role Phone Jaquan Conley MD Primary Care Provider + [phone] Encounter Details Date Type Department Care Team (Late st Contact Info) Description 07/30/2020 [facility] Encounter [facility] Endocrinology [address] [facility], [address] [place] [address] Provider, MD Laury [address] [place] [address] Social History Tobacco Use Types Packs/Day [...] Description 08/28/2024 11:00 AM EST Office Visit [facility] Endocrinology [address] [facility], [address] [place] [address] Erica Ventura PA [address] [facility] [address] [place] [address] documented as of this encounter Procedures Procedure Name Priority Date/Time Associated Diagnosis Comments POCT GLYCOSYLATED HEMOGLOBIN (HGB A1C) Routine 11/26/2020 1:12 PM EDT POCT GLYCOSYLATED HEMOGLOBIN (HGB A1C) Routine 07/30/2020 1:12 PM EST POCT GLYCOSYLATED HEMOGLOBIN (HGB A1C) Routine 04/28/2020 4:06 PM EDT documented in this encounter Results * WILLARD Hemoglobin A1C (11/26/2020 1:12 PM EDT) POCT Hemoglobin A1C 6.1 [facility] 11/26/2020 1:12 PM EDT Narrative [facility] - 11/26/2020 1:12 PM EDT Resulting Agency - AEHR POC [[facility] [place]] us Historical Provider MD POINT OF CARE TEST ENTER/ EDIT ORDERABLES Final Result Performing Organization Address City/[facility]/ZIP Co de Phone Number [facility] [address] [place] [address], [place] * WILLARD Hemoglobin A1C (07/30/2020 1:12 PM EST) POCT Hemoglobin A1C 5.0 [facility] 07/30/2020 1:12 PM EST Narrative [facility] - 07/30/2020 1:12 PM EST Resulting Agency - AEHR POC [[facility] [place]] us Historical Provider MD POINT OF CARE TEST ENTER/ EDIT ORDERABLES Final Result [facility] [address] [place] [address] [address] [place] [address], [place] * WILLARD Hemoglobin A1C (04/28/2020 4:06 PM EDT) POCT Hemoglobin A1C 5.4 [facility] 04/28/2020 4:06 PM EDT Narrative [facility]CRINOLOGY [place] - 04/28/2020 4:06 PM EDT Resulting Agency - AEHR POC [[facility] [place]] us Historical Provider POINT OF CARE TEST ENTER/ EDIT ORDERABLES Final Result [facility]CRINOLOG[facility] [place] [address] [place] [facility] [address] documented in this encounter Visit Diagnoses Not on filedocumented in this encounter Care Teams Geospatial Image Analyst Relationship Specialty Start Date End Date Jaquan Conley MD [address] [place] [address] PCP - General 11/28/20 documented as of this encounter
--- OUTSIDE RECORDS SUMMARY | 2024-06-11 08:40 | XMS_ITS | Encounter Summary ---
Author Organization [facility] Address [address] [place] [address] Care Team Providers Care Storage Battery Tester Name Role Phone Jaquan Conley MD Primary Care Provider + [phone] Encounter Details Date Type Department Care Team [...] 11:00 AM EST Office Visit [facility] Endocrinology [address], [address] [place] [address] Erica Ventura PA [address] [place] [address] documented as of this encounter Visit Diagnoses Not on filedocumented in this encounter Additional Health Concerns Assessment Noted Time A fall risk assessment has been complete d for the patient 12/21/2021 12:59 PM EDT documented as of this encounter Care Teams Storage Battery Tester Relationship Specialty Start Date End Date Jaquan Conley MD [address] [place], [place] [phone] PCP - General 11/28/20 documented as of this encounter
--- OUTSIDE RECORDS SUMMARY | 2024-06-11 08:40 | XMS_ITS | Encounter Summary ---
Author Organization [facility] Address [address] [place] [address] Care Team Providers Care Interpreter For The Deaf Name Role Phone Jaquan Conley MD Primary Care Provider + [phone] Encounter Details Date Type Department Care Team [...] [facility] [address], [address] [place] [address] Erica Ventura PA [address] [place] [address] documented as of this encounter Visit Diagnoses Not on filedocumented in this encounter Additional Health Concerns Assessment Noted Time A fall risk assessment has been complete d for the patient 09/13/2022 1:03 PM EST A Body Mass Index follow-up plan has been documented for the patient 09/13/2022 1:44 PM EST documented as of this encounter Care Teams Interpreter For The Deaf Relationship Specialty Start Date End Date Jaquan Conley MD [address] [place] [address] PCP - General 11/28/20 documented as of this encounter
--- OUTSIDE RECORDS SUMMARY | 2024-06-11 08:40 | XMS_ITS | Encounter Summary ---
Author Organization [facility] Address [address] [place] [id number] Care Team Providers Care Chimney Construction Supervisor Name Role Phone Jaquan Conley MD Primary Care Provider + [phone] Reason for Visit * Reason Comments Med Refill Encounter Details Date Type Department Care Team (Late Contact Info) Description 07/05/2021 Refill [facility] Diabetes Education [address], [address] [place] [address] Ulises Tran RN [address] [address] Type 1 diabetes mellitus with [...] Description 08/28/2024 11:00 AM EST Office Visit [facility] Endocrinology [address], [address] [place] [address] Erica Ventura PA [address] [place] [address] documented as of this encounter Visit Diagnoses Diagnosis 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
--- OUTSIDE RECORDS SUMMARY | 2024-06-11 08:40 | XMS_ITS | Encounter Summary ---
Author Organization [facility] Address [address] [place] [address] Care Team Providers Care Physical Therapy Instructor Name Role Phone Jaquan Conley MD Primary Care Provider + [phone] Encounter Details Date Type Department Care Team [...] Description 08/28/2024 11:00 AM EST [facility] [place] [facility] Endocrinology [address] [place] [address] Erica Ventura PA [address] [place] [address] documented as of this encounter Visit Diagnoses Not on filedocumented in this encounter Care Teams Physical Therapy Instructor Relationship Specialty Start Date End Date Jaquan Conley MD [address] [place], [place] [phone] PCP - General 11/28/20 documented as of this encounter
--- OUTSIDE RECORDS SUMMARY | 2024-06-11 08:40 | XMS_ITS | Encounter Summary ---
Author Organization [facility] Address [address] [place] [address] Care Team Providers Care Physicians And Surgeons Name Role Phone Jaquan Conley MD Primary Care Provider + [phone] Encounter Details Date Type Department Care Team (Late st Contact Info) Description 08/31/2021 Telephone [facility] Endocrinology [address], [address] [place] [address] Susana Thao Social History Tobacco [...] Description 08/28/2024 11:00 AM EST Office Visit [facility] Endocrinology [address] , [address] [place] [address] Erica Ventura PA [address] [facility] [address] [place] [address] documented as of this encounter Visit Diagnoses Not on filedocumented in this encounter Care Teams Physicians And Surgeons Relationship Specialty Start Date End Date Jaquan Conley MD [address] [place] [address] PCP - General 11/28/20 documented as of this encounter
--- OUTSIDE RECORDS SUMMARY | 2024-06-11 08:40 | XMS_ITS | Encounter Summary ---
Author Organization [facility] Address [address] [place] [address] Care Team Providers Care Agriculture Department Chair Name Role Phone Jaquan Conley MD Primary Care Provider + [phone] Encounter Details Date Type Department Care Team (Late st Contact Info) Description 11/10/2018 [facility] Encounter HISTORICAL OTTR [address] [place] [address] Yris Schwarz, RN CH-TRANSPLANT ADMINISTRATION Social History [...] . She stated she is going to [facility] because they told her she can continue [...] EDT SW received message from [facility] pet crematory worker that the pt contacted her to cancel psych appt, as she has decided to pursue listing at [facility], instead of . Note to Coord. and Spooling Operator for awareness. * Progress Notes - Indira Márquez - 11/09/2018 4:12 PM EDT Mailed 11/24/18 [facility] eval appt schedule w/ map to pt. * Progress Notes - [place] Gaming - 11/08/2018 8:09 AM EDT Per [facility] Spooling Operator, pt has an appt with [facility] on 11/24/18 at 1:30 pm. Note [...] made between 9 and 12 due to summer child caregiver issues. Forwarding communication to . * Progress [...] However, pt is also considering going to [facility] since she was told they are less [...] @ 0830. Updated APM, SCM, OTTR, and [place]. Will call pt and mail updated ppw. [...] from pt asking for call back at [phone] to talk about a living donor. Called and spoke w/ pt. States she has several potential living donors and they have questions about the process, testing, and requirements. Informed pt that her potential living donors can call [phone] to discuss this and receive more info, [...] EST Office Visit [facility] [address] [facility], [address] [place] [address] Erica Ventura PA [address] [place] [address] documented as of this encounter [...] on filedocumented in this encounter Care Teams Agriculture Department Chair Relationship Specialty Start Date End Date Jaquan Conley MD [address] [place] [address] PCP - General 11/28/20 documented as of this encounter
--- OUTSIDE RECORDS SUMMARY | 2024-06-11 08:40 | XMS_ITS | Encounter Summary ---
Author Organization [facility] Address [address] [place] [address] Care Team Providers Care Digital Analyst Name Role Phone Jaquan Conley MD Primary Care Provider + [phone] Encounter Details Date Type Department Care Team [...] Description 08/28/2024 11:00 AM EST Office Visit [facility] Endocrinology [address] [place] [address] Erica Ventura PA [address] [place] [address] documented as of this encounter Visit Diagnoses Not on filedocumented in this encounter Additional Health Concerns Assessment Noted Time A fall risk assessment has been complete d for the patient 12/16/2022 12:47 PM EDT A Body Mass Index follow-up plan has been documented for the patient 12/16/2022 1:35 PM EDT documented as of this encounter Care Teams Digital Analyst Relationship Specialty Start Date End Date Jaquan Conley MD [address] [place] [address] PCP - General 11/28/20 documented as of this encounter
--- OUTSIDE RECORDS SUMMARY | 2024-06-11 08:40 | XMS_ITS | Encounter Summary ---
Author Organization [facility] Address [address] [place] [address] Care Team Providers Care Broadcast Systems Engineer Name Role Phone Jaquan Conley MD Primary Care Provider + [phone] Reason for Visit * Reason Comments Follow-up Type 1 DM Encounter Details Date Type Department Care Team (Late st Contact Info) Description 12/21/2021 12:40 PM EDT Office Visit [facility] Endocrinology [address], [address] [place] [address] Pearl Gilman, NEW VEHICLE SALES CONSULTANT [address] [facility] [address] [place] [address] Type 1 diabetes mellitus with [...] that she is on transplant list at [facility] and awaiting kidney. Today A1c: [...] you have labs last?: December [facility] The following portions of the chart [...] care. Electronically signed by: Pearl Gilman APRN [facility] ENDOCRINOLOGY [address] [place]. [address] PHONE [phone] FAX: [phone] documented in this encounter Plan of Treatment Upcoming Encounters Date Type Department Care Team (Late st Contact Info) Description 08/28/2024 11:00 AM EST Office Visit [facility] Endocrinology [address], [address] [place] [address] Erica Ventura PA [address] [place] [address] documented as of this encounter [...] POCT Hemoglobin A1C 5.5 4.4-6.6 % % [facility] Kit Lot Number n/a [facility] eInstruction by [facility] Kit Expiration Date n/a [facility] Blood Venous blood specimen / Unknown 12/21/2021 1:03 PM EDT us Pearl Brooks Mukul NEW VEHICLE SALES CONSULTANT POINT OF CARE TEST ENTER/RANDY T ORDERABLES Final Result [facility] [address] [place] [address] documented in this encounter Visit Diagnoses Diagnosis 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 (CMS/[facility])- Primary Hyperlipidemia, unspecified hyperlipidemia type Essential hypertension Unspecified essential hypertension Chronic kidney disease, stage IV (severe) (CMS/HCC) Chronic kidney disease, Stage IV (severe) documented in this encounter Additional Health Concerns Assessment Noted Time A fall risk assessment has been complete d for the patient 12/21/2021 12:59 PM EDT documented as of this encounter Care Teams Broadcast Systems Engineer Relationship Specialty Start Date End Date Jaquan Conley MD [address] [place] [address] PCP - General 11/28/20 documented as of this encounter
--- OUTSIDE RECORDS SUMMARY | 2024-06-11 08:40 | XMS_ITS | Encounter Summary ---
Author Organization [facility] Address [address] [place] [id number] Care Team Providers Care High Lighter Name Role Phone Jaquan Conley MD Primary Care Provider + [phone] Encounter Details Date Type Department Care Team (Late st Contact Info) Description 11/[facility]2022 [facility] [address] [place] [address] [place] [address] Erica Ventura PA [address] [facility] [address] [place] [address] Social History Tobacco Use Types [...] Pt state her address has change to: [address] [place] [address] [place] [address] Can you put this change in for [...] Description 08/28/2024 11:00 AM EST [facility] [address] [place] , [address] [place] [address] Erica Ventura PA [address] [facility] [address] [place] [address] documented as of this encounter Visit Diagnoses Not on filedocumented in this encounter Additional Health Concerns Assessment Noted Time A fall risk assessment has been complete d for the patient 09/13/2022 1:03 PM EST A Body Mass Index follow-up plan has been documented for the patient 09/13/2022 1:44 PM EST documented as of this encounter Care Teams High Lighter Relationship Specialty Start Date End Date Jaquan Conley MD [address] [place] [address] PCP - General 11/28/20 documented as of this encounter
--- OUTSIDE RECORDS SUMMARY | 2024-06-11 08:40 | XMS_ITS | Encounter Summary ---
Author Organization [facility] Address [address] [place] [id number] Care Team Providers Care Metal Trimmer Name Role Phone Jaquan Conley MD Primary Care Provider + [phone] Reason for Visit * Reason Comments Med Refill Encounter Details Date Type Department Care Team (Late st Contact Info) Description 04/04/2021 [facility] [address], [address] [place] [address] Ulises Tran RN [address] [place] [address] Type 1 diabetes mellitus with [...] Description 08/28/2024 11:00 AM EST 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
--- OUTSIDE RECORDS SUMMARY | 2024-06-11 08:40 | XMS_ITS | Encounter Summary ---
Author Organization [facility] Address [address] [place] [address] Care Team Providers Care Mitochondrial Disorders Counselor Name Role Phone Jaquan Conley MD Primary Care Provider + [phone] Encounter Details Date Type Department Care Team (Late st Contact Info) Description 09/11/2021 11:00 AM EST Office Visit [facility] Endocrinology [address], [address] [place] [address] Erica Izquierdo S, SAP BUSINESS ANALYST [address] [place] [address] Type 1 diabetes mellitus with [...] Notes * Progress Notes - Erica Izquierdo, SAP BUSINESS ANALYST - 09/11/2021 11:00 AM EST Subjective Crystal [...] Patient confirms they are physically located in [place]? Yes If the patient is not physically located in [place], the provider has confirmed with Legal thatthe [...] care. Electronically signed by: Erica Izquierdo APRN [facility] ENDOCRINOLOGY [address] [address] [place]. [address] PHONE [phone] FAX: [phone] documented in this encounter Plan of Treatment Upcoming Encounters Date Type Department Care Team (Late st Contact Info) Description 08/28/2024 11:00 AM EST Office Visit [facility] Endocrinology [address], [address] [place] [address] Erica Ventura, PA [address] [facility] [address] [place] [address] documented as of this encounter Visit Diagnoses [...] (CMS/HCC) documented in this encounter Care Teams Mitochondrial Disorders Counselor Relationship Specialty Start Date End Date Jaquan Conley MD [address] [place] [address] PCP - General 11/28/20 documented as of this encounter
--- OUTSIDE RECORDS SUMMARY | 2024-06-11 08:40 | XMS_ITS | Encounter Summary ---
Author Organization Healthcare Address [address] [place] [address] Care Team Providers Care Back Feeder Plywood Layup Line Name Role Phone Jaquan Conley MD Primary Care Provider + [phone] Reason for Visit * Reason Comments Diabetes Encounter Details Date Type Department Care Team (Late st Contact Info) Description 12/16/2022 12:40 PM EDT Office Visit [facility] [address], [address] [place] [address] Erica Ventura PA [address] [facility] [address] [place] [address] Hyperglycemia (Primary Dx); Nephropathy; Retinopathy; [...] education team with any questions or concerns [phone] * Progress Notes - Erica Valdivia PA [...] [address] peritoneal dialysis catheter, [facility] is healing okay, is making it difficult to find placement for both insertion and CGM sites -[facility] needs to repeat C-peptide today to obtain new insulin pump -She did complete an eye exam last month after a black floater started in her left eye, was recommended either injections or laser for bleeding, however patient declined due to past pain with this interventions, patient reached agreement with ophthalmology -She is now on [facility] renal transplant list since doing dialysis, [facility] is going to try to be [...] of care. Electronically signed by: ANDREA Kumari [facility] [address] [place] [address]. [address] [place]. [address] PHONE [phone] FAX: [phone] documented in this encounter Plan of Treatment Upcoming Encounters Date Type Department Care Team (Late st Contact Info) Description 08/28/2024 11:00 AM EST Office Visit [facility] Endocrinology [address] [place] [address], [address] [place] [address] [place] [address] [place] [address] [place] [address] documented as of this encounter Procedures Procedure Name Priority Date/Time Associated Diagnosis Comments POCT GLYCOSYLATED HEMOGLOBIN (HGB A1C) Routine 12/16/2022 12:52 PM EDT Hyperglycemia documented in this encounter Results * POCT glycosylated hemoglobin (Hb A1C) docked device (12/16/2022 12:52 PM EDT) POCT Hemoglobin A1C 5.3 4.4-6.6 % % [facility] Kit Lot Number [id number] [facility] Kit Expiration Date [address] [facility] Blood Venous blood specimen / Unknown 12/16/2022 12:52 PM EDT Erica MENDEZ POINT OF CARE TEST EN TER/EDIT ORDERABLES Final Result Performing Organization Address City/State/[facility] Co de Phone Number HEALTHCARE LAB [address] [place] [address] documented in this encounter Visit Diagnoses Diagnosis [...] documented as of this encounter Care Teams Back Feeder Plywood Layup Line Relationship Specialty Start Date End Date Jaquan Conley MD [address] [place] [address] PCP - General 11/28/20 documented as of this encounter
--- OUTSIDE RECORDS SUMMARY | 2024-06-11 08:40 | XMS_ITS | Encounter Summary ---
Author Organization [facility] Address [address] [place] [address] Care Team Providers Care Banquet Stewardess Name Role Phone Jaquan Conley MD Primary Care Provider + [phone] Reason for Visit * Reason Comments Med Refill Encounter Details Date Type Department Care Team (Late st Contact Info) Description 08/08/2021 Refill [facility] [address] , [address] [place] [address] Ivy Whaley MD [address] [address] Type 1 diabetes mellitus with [...] Description 08/28/2024 11:00 AM EST Office Visit [facility] Endocrinology [address], [address] [place] [address] Erica Ventura PA [address] [place] [address] documented as of this encounter Visit Diagnoses Diagnosis 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
--- OUTSIDE RECORDS SUMMARY | 2024-06-11 08:40 | XMS_ITS | Encounter Summary ---
Author Organization [facility] Address [address] [place] [address] Care Team Providers Care Drop Forge Hand Name Role Phone Jaquan Conley MD Primary Care Provider + [phone] Reason for Visit * Reason Comments Med Refill Encounter Details Date Type Department Care Team (Late st Contact Info) Description 09/04/2021 Refill [facility] [address] , [address] [place] [id number] Erica Izquierdo APRN [address] [place] [address] Type 1 diabetes mellitus with mild [...] Description 08/28/2024 11:00 AM EST Office Visit [facility] [address] , [address] [place] [address] Erica Ventrua PA [address] [place] [address] documented as of this encounter Visit Diagnoses Diagnosis 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
--- OUTSIDE RECORDS SUMMARY | 2024-06-11 08:40 | XMS_ITS | Encounter Summary ---
Author Organization [facility] Address [address] [place] [address] Care Team Providers Care Marketing Production Coordinator Name Role Phone Jaquan Conley MD Primary Care Provider + [phone] Reason for Visit * Reason Onset Date Comments HCN - Patient Message 09/25/2021 Encounter Details Date Type Department Care Team (Late st Contact Info) Description 09/25/2021 Telephone [facility] Endocrinology [address] [facility], [address] [place] [address] Pearl Gilman, ASSISTANT MANAGER AIRSIDE OPERATIONS [address] [facility] [address] [place] [address] HCN - Patient Message Social [...] orders and the A1C for patient to: [place] [id number] [place] [address] Best contact number and optimal time of day to reach caller: [phone] (leave msg w/sister; Daisy Shaffer or in-law [...] Description 08/28/2024 11:00 AM EST Office Visit [facility] Endocrinology [address] [facility], [address] [place] [address] Erica Ventura PA [address] [facility] [address] [place] [address] documented as of this encounter Visit Diagnoses Not on filedocumented in this encounter Care Teams Marketing Production Coordinator Relationship Specialty Start Date End Date Jaquan Conley MD [address] [place] [address] PCP - General 11/28/20 documented as of this encounter
--- OUTSIDE RECORDS SUMMARY | 2024-06-11 08:40 | XMS_ITS | Encounter Summary ---
Author Organization [facility] Address [address] [place] [id number] Care Team Providers Care Distribution Systems Superintendent Name Role Phone Jaquan Conley MD Primary Care Provider + [phone] Reason for Visit * Reason Onset Date Comments Med Refill 07/26/2022 Encounter Details Date Type Department Care Team (Late st Contact Info) Description 07/26/2022 Refill [facility] Education [address] , [address] [place] [address] Erica Ventura PA [address] [facility] [address] [place] [address] Type 1 diabetes mellitus with [...] EST Received PA request from [facility] in [place] for lantus. Last rx for lantus was sent [facility] [place]. Updated med list and switched to levemir per [place] medicaid formulary change. 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
--- OUTSIDE RECORDS SUMMARY | 2024-06-11 08:40 | XMS_ITS | Encounter Summary ---
Author Organization [facility] Address [address] [place] [address] Care Team Providers Care Coding Clerk Name Role Phone Jaquan Conley MD Primary Care Provider + [phone] Encounter Details Date Type Department Care Team (Late st Contact Info) Description 10/18/2018 [facility] HISTORICAL OTTR [address] [place] [address] Yris Schwarz, RN CH-TRANSPLANT ADMINISTRATION Social History [...] in nephrology clinic note that she left [facility] after admission for increasing creatinine and e. coli UTI, consider starting with social work. She also initially stated didn't want to pursue kidney transplant if she couldn't get a pancreas at same time. * Progress Notes - Hilaria Hsu - 08/16/2018 9:25 AM EST Start eval with ; pt left [facility] records. Pt has been 5 times; has 2 children, one of which is in [place] with her latest . documented in this encounter Plan of Treatment Upcoming Encounters Date Type Department Care Team (Late st Contact Info) Description 08/28/2024 11:00 AM EST Office Visit [facility] Endocrinology [address], [address] [place] [address] Erica Ventura PA [address] [place] [address] documented as of this encounter Visit Diagnoses Not on filedocumented in this encounter Care Teams Coding Clerk Relationship Specialty Start Date End Date Jaquan Conley MD [address] [place], [place] [phone] PCP - General 11/28/20 documented as of this encounter
--- OUTSIDE RECORDS SUMMARY | 2024-06-11 08:40 | XMS_ITS | Encounter Summary ---
Author Organization Healthcare Address [address] [place] [address] Care Team Providers Care Milking System Installer Name Role Phone Jaquan Conley MD Primary Care Provider + [phone] Encounter Details Date Type Department Care Team [...] 08/28/2024 11:00 AM EST [facility] [address], [address] [place] [address] Erica Ventura PA [address] [place] [address] documented as of this encounter Visit Diagnoses Not on filedocumented in this encounter Additional Health Concerns Assessment Noted Time A fall risk assessment has been complete d for the patient 12/21/2021 12:59 PM EDT documented as of this encounter Care Teams Milking System Installer Relationship Specialty Start Date End Date Jaquan Conley MD [address] [place], [place] [phone] PCP - General 11/28/20 documented as of this encounter
--- OUTSIDE RECORDS SUMMARY | 2024-06-11 08:40 | XMS_ITS | Encounter Summary ---
Author Organization [facility] Address [address] [place] [address] Care Team Providers Care Alligator Trapper Name Role Phone Jaquan Conley MD Primary Care Provider + [phone] Reason for Visit * Reason Comments Med Refill Encounter Details Date Type Department Care Team (Late st Contact Info) Description 04/26/2021 [facility] [address], [address] [place] [address] Julisa Morales, BOOTMAKER [address] [facility] [address] [place] [address] Type 1 diabetes mellitus without [...] Description 08/28/2024 11:00 AM EST Office [facility] End[facility] [address], [address] [place] [address] Erica Ventura, PA [address] [facility] [address] [place] [address] documented as of this encounter Visit Diagnoses Diagnosis Type 1 diabetes mellitus without complication (CMS/HCC)- Primary Type I (juvenile type) diabetes mellitus without mention of complication, not stated as uncontrolled documented in this encounter Care Teams Alligator Trapper Relationship Specialty Start Date End Date Jaquan Conley MD [address] [place] [id number] PCP - General 11/28/20 documented as of this encounter
--- OUTSIDE RECORDS SUMMARY | 2024-06-11 08:40 | XMS_ITS | Encounter Summary ---
Author Organization Healthcare Address [address] [place] [address] Care Team Providers Care Commission Clerk Name Role Phone Unavailable Primary Care Provider Unavailabl e Encounter Details Date Type Department Care Team (Late Contact Info) Description 06/12/2018 [facility] Encounter HISTORICAL OPHTHALMOLOGY [address] [place] [address] Joey Anderson MD [address] [place] [address] Social History Tobacco Use Types [...] [facility] [address] [place] [address] Erica Ventura PA [address] [place] [address] documented as of this encounter Visit Diagnoses Not on filedocumented in this encounter
--- OUTSIDE RECORDS SUMMARY | 2024-06-11 08:40 | XMS_ITS | Encounter Summary ---
Author Organization [facility] Address [address] [place] [address] Care Team Providers Care Stationary Engineer Refrigeration Name Role Phone Jaquan Conley MD Primary Care Provider + [phone] Reason for Visit * Reason Comments Diabetes type1 Encounter Details Date Type Department Care Team (Late st Contact Info) Description 05/13/2022 1:20 PM EDT Office Visit [facility] [address] , [address] [place] [address] Erica Ventura PA [address] [place] [address] Type 1 diabetes mellitus with [...] education team with any questions or concerns [phone] * Progress Notes - Erica Valdivia PA [...] that she is on transplant list at [facility] and awaiting kidney. Cardiovascular risk factors: diabetes [...] of care. Electronically signed by: ANDREA Kumari [facility]CR[facility] [address] [facility]. [address] [place]. 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 (CMS/HCC) documented in this encounter Results * POCT glycosylated hemoglobin (Hb A1C) docked device (05/13/2022 1:07 PM EDT) POCT Hemoglobin A1C 4.8 4.4-6.6 % % [facility] Kit Lot Number na [facility] Kit Expiration Date na [facility] Blood Venous blood specimen / Unknown 05/13/2022 1:07 PM EDT Erica MENDEZ POINT OF CARE TEST EN TER/EDIT ORDERABLES Final Result Performing Organization Address City/State/[facility] Co de Phone Number [facility] [address] [place] [address] documented in this encounter Visit Diagnoses Diagnosis [...] documented as of this encounter Care Teams Stationary Engineer Refrigeration Relationship Specialty Start Date End Date Jaquan Conley MD [address] [place] [address] PCP - General 11/28/20 documented as of this encounter
--- OUTSIDE RECORDS SUMMARY | 2024-06-11 08:40 | XMS_ITS | Encounter Summary ---
Author Organization [facility] Address [address] [place] [address] Care Team Providers Care Agency Manager Name Role Phone Jaquan Conley MD Primary Care Provider + [phone] Reason for Visit * Reason Comments Diabetes Encounter Details Date Type Department Care Team (Late st Contact Info) Description 09/13/2022 1:20 PM EST [facility] [address] , [address] [place] [address] Erica Ventura PA [address] [place] [address] Type 1 diabetes mellitus with [...] 05/08 from 5.5% 12/2021 -Evaluation today with [facility] general surgery for peritoneal dialysis catheter, will follow [facility], laparoscopic placement scheduled with Dr. Cb Renee for 09/23 at [facility] -At last office visit reduced all [...] is not on renal transplant list at [facility] as she is not currently in [...] of care. Electronically signed by: ANDREA Kumari [facility] ENDOCRINOLOGY [address] [place]. [address] PHONE [phone] FAX: [phone] documented in this encounter Plan of Treatment Upcoming Encounters Date Type Department Care Team (Late st Contact Info) Description 08/28/2024 11:00 AM EST Office Visit [facility] Endocrinology [facility] [address] [place] [address] Erica Ventura PA [address] [address] [place] [address] documented as of this encounter Procedures Procedure Name Priority Date/Time Associated Diagnosis Comments POCT GLYCOSYLATED HEMOGLOBIN (HGB A1C) Routine 09/13/2022 1:08 PM EST Type 1 diabetes mellitus with other specified complication (CMS/HCC) documented in this encounter Results * POCT glycosylated hemoglobin (Hb A1C) docked device (09/13/2022 1:08 PM EST) POCT Hemoglobin A1C 5.1 4.4-6.6 % % [facility] Kit Lot Number n/a [facility] Kit Expiration Date n/a [facility] Blood Venous blood specimen / Unknown 09/13/2022 1:08 PM EST Erica MENDEZ POINT OF CARE TEST EN TER/EDIT ORDERABLES Final Result Performing Organization Address City/State/[facility] Co de Phone Number [facility] [address] [place] [address] documented in this encounter Visit Diagnoses Diagnosis [...] documented as of this encounter Care Teams Agency Manager Relationship Specialty Start Date End Date Jaquan Conley MD [address] [place] [address] PCP - General 11/28/20 documented as of this encounter
[2024-06-14 13:09] LABS: Tacrolimus (FK506), Blood 8.1 ng/mL (2.0-20.0)
== END 2024-06-11 23:59 | disposition home or self-care (01) ==
LOC: LAB 08:10
PROVIDERS: PCP Nurse Practitioner; Visit Provider Nurse Practitioner Family
DX: Z94.0 Kidney transplant status (principal); E11.8 Type 2 diabetes mellitus with unspecified complications; I10 Essential (primary) hypertension; Z01.89 Encounter for other specified special examinations; Z79.899 Other long term (current) drug therapy; E78.5 Hyperlipidemia, unspecified; Z79.85 Long-term (current) use of injectable non-insulin antidiabetic drugs; Z72.0 Tobacco use
CPT/HCPCS: 36415; 80197

== ENCOUNTER 2024-06-19 08:35 | Outpatient (CLI) | payer MEDICAID, SELFPAY ==
--- OUTSIDE RECORDS SUMMARY | 2024-06-19 08:40 | XMS_ITS | Clinical Summary ---
Author Organization [facility] Address [address] [place] [address] Care Team Providers Care A Class Lineman Name Role Phone Unavailable Primary Care Provider [...] therelease of HIV test results or diagnoses. [id number] Allergies Active Allergy Reactions Criticality Noted [...] - Td or Tdap) 09/28/2033 09/29/2023 Insurance [facility]
--- OUTSIDE RECORDS SUMMARY | 2024-06-19 08:40 | XMS_ITS | Encounter Summary ---
Author Organization [facility] Address [address] [place] [address] Care Team Providers Care Marine Fuel Dock Attendant Name Role Phone Unavailable Primary Care [...] release of HIV test results or diagnoses. [id number] Health Encounter Details Date Type Department Care Team (Late st Contact Info) Description 10/20/2023 Chart Note [facility] Kidney Transplant at [address] [address] iVvian Dee RN Anemia due to chronic kidney disease, on chronic dialysis ([facility]) (Primary Dx); Depression, unspecified depression type; History of bariatric surgery; History of drug abuse ([facility] Mixed hyperlipidemia; Pre-transplant evaluation for kidney transplant; Type 2 diabetes mellitus with chronic kidney disease on chronic dialysis, with long-term current use of insulin ([facility] Hypertension secondary to other renal disorders Social [...] to chronic kidney disease, on chronic dialysis ([facility] Primary Depression, unspecified depression type History of bariatric surgery Bariatric surgery status History of drug abuse ([facility]) Other, mixed, or unspecified nondependent drug abuse, in remission Mixed hyperlipidemia Pre-transplant evaluation for kidney transplant Type 2 diabetes mellitus with chronic kidney disease on chronic dialysis, with long-term current use of insulin ([facility]) Hypertension secondary to other renal disorders documented in this encounter
--- OUTSIDE RECORDS SUMMARY | 2024-06-19 08:40 | XMS_ITS | Encounter Summary ---
Author Organization [facility] Address [address] [place] [address] Care Team Providers Care Case Sealer Name [...] release of HIV test results or diagnoses. [id number] Health Encounter Details Date Type Department Care Team (Late st Contact Info) Description 09/06/2023 Chart Note [facility] Kidney Transplant at [address] [address] Bernardo White MA [facility] [address] Social History Tobacco Use Types Packs/Day Years [...] - 09/06/2023 8:52 AM EST [place] [address] New Kidney tx[place] referral [facility] [place] [...]
--- OUTSIDE RECORDS SUMMARY | 2024-06-19 08:40 | XMS_ITS | Encounter Summary ---
Author Organization [employer] Address [address] [place] [address] Care Team Providers Care Verification Engineer Name Role Phone Unavailable Primary Care Provider Unavailabl e Encounter Details Date Type Department Care Team (Late st Contact Info) Description 08/02/2022 Abstract [facility] [address] [facility] [address] [place] [address] John Garcia MD [address] [facility] [address] [place] [address] Social History Tobacco Use Types Packs/Day Years [...]
--- OUTSIDE RECORDS SUMMARY | 2024-06-19 08:40 | XMS_ITS | Encounter Summary ---
Author Organization [facility] Address [address] [place] [address] Care Team Providers Care Design Inserter Name Role Phone Unavailable Primary Care [...] release of HIV test results or diagnoses. [id number] Health Encounter Details Date Type Department Care Team (Late st Contact Info) Description 11/21/2023 Telephone [facility] Kidney Transplant at [address] [address] Bernardo White MA Social History [...] TXP. This MA [facility]. RN notified documented in this encounter Plan of Treatment Not on file documented as of this encounter Visit Diagnoses Not on filedocumented in this encounter
--- OUTSIDE RECORDS SUMMARY | 2024-06-19 08:40 | XMS_ITS | Clinical Summary ---
Author Organization [employer] [facility] Address [address] [place] [address] Care Team Providers Care Aquatic Centre Manager Name Role Phone Unavailable Primary Care [...] Date Blaine rded Speak language other than [place] at home Not on file 07/30/2023 Want [...] T d or Tdap) 02/16/2028 02/15/[address] [facility] Advance Directives For more information, please contact: [phone] * Full Code (Latest Code Status on File) Date Activated Date Inactivated Comments 09/23/2022 6:27 AM 09/23/2022 11:31 AM
--- OUTSIDE RECORDS SUMMARY | 2024-06-19 08:40 | XMS_ITS | Encounter Summary ---
Author Organization [facility] Address [address] [place] [address] Care Team Providers Care Fermenting Cellars Receiver Name Role Phone Unavailable Primary Care Provider Unavailabl e Reason for Visit * Reason Onset Date Comments Follow-up 09/28/2022 Encounter Details Date Type Department Care Team (Late st Contact Info) Description 09/28/2022 Telephone [facility] [address] [facility] [address] [place] [address] Annmarie George CMA Follow-up Social History [...] 1:00 p.m. She is to go to [address] [place] [address]. If she has any questions or needs to change her appointment she can contact them at [phone]. She voiced her understanding and thanked me for the information. Electronically signed by Annmarie Nowak CMA - 09/28/2022 - 1:18 PM EDT documented in this encounter Plan of Treatment Not on file documented as of this encounter Visit Diagnoses Not on filedocumented in this encounter
--- OUTSIDE RECORDS SUMMARY | 2024-06-19 08:40 | XMS_ITS | Encounter Summary ---
Author Organization [facility] Address [address] [place] [address] Care Team Providers Care Market Development Trainer Name Role Phone Unavailable Primary Care Provider [...] release of HIV test results or diagnoses. [id number] Health Encounter Details Date Type Department Care Team (Late st Contact Info) Description 12/08/2023 Chart Note [facility] at [address] [address] Vivian Dee RN Received a [...]
--- OUTSIDE RECORDS SUMMARY | 2024-06-19 08:40 | XMS_ITS | Encounter Summary ---
Author Organization [facility] Address [address] [place] [address] Care Team Providers Care Remodeler Name Role Phone Unavailable Primary Care Provider Unavailabl e Reason for Visit * Auth/Cert Specialty Diagnoses / Procedures Referred By Xochitl burt Referred To Contact Diagnoses Chronic kidney disease, stage IV (severe) (HCC) Chronic kidney disease, Procedures [place] LAP INSERTION TUNNELED INTRAPERITONEAL CATHETER LAPAROSCOPY, WITH PERITONEAL DIALYSIS CATHETER INSERTION Cb Renee MD [address] [facility] [address] [place] [address] Phone: tel: fax: Referral ID Status Reason Start Date Expiration Date Visits Re quested Visits Authorized [id number] 09/13/2022 1 1 Encounter Details Date Type Department Care Team (Late st Contact Info) Description 09/23/2022 8:00 AM EST Anesthesia Event [facility] Operating Room 1 [place] [address] Margarito Escobedo MD [address] [place] [address] Anesthesia Record Procedure Summary Procedure Name Responsible [...] Procedure Summary Date: 09/23/22 Room / Location: [facility] OR [facility] OPERATING ROOM Anesthesia Start: 0800 Anesthesia [...] acceptable Comments: Phenergan given for nausea Color: [place] Activity: Moves 4 extremities Inotropes/Vasopressors: N/A There were no known complications for this encounter. Margarito Escobedo MD 09/23/2022 8:55 AM EST DLE COOK * Anesthesia Procedure Notes - Margarito Escobedo [...] 1 Number of other approaches attempted: 0 DLE COOK * Anesthesia Preprocedure Evaluation - Margarito Escobedo MD - 09/23/2022 7:41 AM EST ANESTHESIA PREOPERATIVE EVALUATION Patient: Crystal Archer Date/Time: 09/23/22 0850 Procedure: LAPAROSCOPIC PD CATHETER PLACEMENT), (N/A ) - IN 629 , 1 HR (R) Location: [facility] OR [address] [place] [address] OPERATING ROOM Surgeons: Cb Renee MD Vitals: [...] Anesthetic plan and risks discussed with patient. DLE COOK DLE COOK documented in this encounter Plan of Treatment [...]
--- OUTSIDE RECORDS SUMMARY | 2024-06-19 08:40 | XMS_ITS | Encounter Summary ---
Author Organization [facility] Address [address] [place] [address] Care Team Providers Care Sales Merchandising Specialist Name Role Phone Unavailable Primary Care Provider Unavailabl e Reason for Visit * Auth/Cert Specialty Diagnoses / Procedures Referred By Xochitl burt Referred To Contact Diagnoses Chronic kidney disease, stage IV (severe) (HCC) Chronic kidney disease, Procedures [place] LAP INSERTION TUNNELED INTRAPERITONEAL CATHETER LAPAROSCOPY, WITH PERITONEAL DIALYSIS CATHETER INSERTION Cb Renee MD [address] [place] [address] Phone: tel: fax: Referral ID Status Reason Start Date Expiration Date Visits Re quested Visits Authorized [id number] 09/13/2022 1 1 Encounter Details Date Type Department Care Team (Late st Contact Info) Description 09/23/2022 6:29 AM EST - 09/23/2022 10:31 AM EST Hospital Encounter [facility] Operating Room 1 [place] [phone] Cb Renee MD [address] [place] [address] Discharge Disposition: Home or Self Care Social [...] for 24 hours or while taking narcotics [employer] * Attachments The following attachments cannot be sent through Care Everywhere. * General Anesthesia Adult Care After ([place]) * Peritoneal Dialysis Catheter Placement Care After ([place]) * Acetaminophen; Hydrocodone Capsules or Tablets ([place]) documented in this encounter Medications [...] this encounter H&P Notes * Mare Monteror, GUIDANCE CONSULTANT - 09/23/2022 8:00 AM EST HPI [...] ??? POC-EGFR 09/23/2022 8 mL/min/1.73M2 Final ??? Aerial Survey Technician 09/23/2022 [id number] Final ??? POC-Creatinine 09/23/2022 6.3 (A) 0.6 - 1.3 mg/dL Final No image results found. Assessment & Plan Renal failure DM Hyperparathyroidism Anemia HTN HLD Hyperkalemia Pt to proceed with surgery, DC home today. Electronically signed by: Mare Rodgers APRN, 09/23/2022 at 8:32 AM Cosigned by Cb Renee MD at 09/23/2022 2:25 PM EST RVISOR [employer]KE HANDLING [employer] Associated attestation - Cb Renee MD - 09/23/2022 1:25 PM SUPERVISOR COKE HANDLING Patient seen and examined by myself. Agree [...] dialysis catheter on September 23, 2022 at [facility]. ?? Electronically signed by nAnmarie Nowak CMA - 09/13/2022 - 10:14 AM EST ?? Patient?? Crystal Archer 32 year old female 1990 ?? [address] [facility] [address] ?? [phone] (M) [phone] (H) Comm Pref: Recent Visits with You 09/13/2022 Office Visit More...?? Significant History/Details?? Smoking Former Smoker (Quit Date: ) Smokeless Tobacco Never Used Alcohol Not Currently Preferred Language [place] Specialty Comments Edit Show all No comments regarding your specialty Family Comments Edit None Care Team and Communications?? No referring provider ?? No PCP set ?? No other patient care team members ?? Visit Treatment Team Relationship Cb Renee MD Surgeon ? Recipients of Automatic ADT Notifications for This Admission Show All Admissions No notifications found. Social Determinants of Health?? Find navigaya resources [facility] Documents Created Type Source 04/11/2022 Continuity of Care Document?? [facility] 03/18/2022 Continuity of Care Document?? [facility] 03/17/2022 Continuity of Care Document?? [facility] Since Your Last Visit (Today)?? Sep 23 This Visit: Pre-admit with Me Sep 23 Surgery with Me LAPAROSCOPIC PD CATHETER PLACEMENT), Allergies?(very important)?? Allergies from outside sources need reconciliation.?? Nsaids (Non-steroidal Anti-inflammatory Drug) Jena Carlos as: Review Complete Review Complete by [...] Labs and Imaging No resulted procedures found. [employer] documented in this encounter Miscellaneous Notes * Nursing Progress Notes - Yue Jacome RN - 09/23/2022 9:52 AM EST Pt has abd pad with binder [employer] * Op Note - Cb Renee MD - 09/23/2022 9:18 AM EST DATE OF PROCEDURE: 09/23/2022 PREOPERATIVE DIAGNOSIS: Chronic kidney disease. POSTOPERATIVE DIAGNOSIS: Chronic kidney disease. PROCEDURE PERFORMED: Laparoscopic placement of peritoneal dialysis catheter. SUPERVISOR SCREEN PRINTING: Wil Chawla. ANESTHESIA: General endotracheal. FINDINGS: The [...] was taken to Recovery in stable condition. /[id number] Cb Renee MD [facility] / [facility] / [place] /[id number] [employer] documented in this encounter Plan of Treatment Not on file documented as of this encounter Procedures Procedure Name Priority Date/Time Associated Diagnosis Comments NOVA GLUCOSE POC Routine 09/23/2022 8:51 AM EST [place] LAP INSERTION TUNNELED INTRAPERITONEAL CATHETER 09/23/2022 7:50 AM EST Chronic kidney disease, stage IV (severe) ([facility]) FS_MODEL_IP POCT , URINE Routine 09/23/2022 7:42 AM EST ISTAT GLUCOSE POC Routine 09/23/2022 7:3 9 AM EST POCT-CREATININE Routine 09/23/2022 7:39 AM EST POCT-POTASSIUM STAT 09/23/2022 7:39 AM EST FS_MODEL_IP_ECG 12-LEAD Routine 09/24/19 7:13 AM EST EKG-SCANNED 09/23/2022 documented in this encounter Results * (ABNORMAL) Glucose, Nova Meter (09/23/2022 8:51 AM EST) [facility] POC-GLUCOSE 177(H) 70 - 110 mg/dL 09/23/2022 8:[address] [facility] Comment:Notified Nurse RBV Aerial Survey Technician [id number] 09/23/2022 8:[address] [facility] Blood WHOLE BLOOD / Unknown 09/23/2022 8:51 AM EST 09/23/2022 8:[address] [facility] - 09/23/2022 8:52 AM EST Aerial Survey Technician ID is - [id number] us Cb Renee MD POINT OF CARE TEST ORDERABLES Fi nal Result [facility] [address] [place] [address] * POCT , urine (09/23/2022 7:42 AM EST) [facility] POC, URINE HCG Negative Negative INTERNAL QC (VALID/INVALID ) Valid Kit Lot Number [id number] Expiration Date 09/15/2023 09/23/2022 7:42 AM EST us Pelon Mendoza MD [employer]_MODEL_IP_POINT OF CARE TEST ENTER/EDIT ORDERABLES Final Result * (ABNORMAL) POC-Creatinine (09/23/2022 7:39 AM EST) [facility] POC-EGFR 8 mL/min/1. 73M2 09/23/2022 7:[address] [facility] [place] Comment:Proceed with contras t if eGFR > 45 ml/min/1.73 when performed on the NovaSTAT strip Creatinine meter. Aerial Survey Technician [id number] 09/23/2022 7:[address] [facility] POC-Creatinine 6.3(H) 0.6 - 1.3 mg/dL 09/23/2022 7:[address] [facility] [place] Blood 09/23/2022 7:39 AM EST 09/23/2022 7:[address] [facility] - 09/23/2022 7:47 AM EST Aerial Survey Technician ID is - [id number] us Cb Renee MD POINT OF CARE TEST ORDERABLES Fi nal Result Performing Organization Address [facility]/ZIP Co de Phone Number [facility] [address] [phone] * Glucose, iSTAT Meter (09/23/2022 7:39 AM EST) [facility] POC-GLUCOSE 87 70 - 105 mg/dL 09/23/2022 7:[address] [facility] [place] Blood 09/23/2022 7:39 AM EST 09/23/2022 7:[address] [facility] - 09/23/2022 7:47 AM EST Aerial Survey Technician ID is - [id number] us Cb Renee MD POINT OF CARE TEST ORDERABLES Fi nal Result Performing Organization Address City/[facility]/ZIP Co de Phone Number [facility] [address] [place] [address] * POC-Potassium (09/23/2022 7:39 AM EST) [facility] POC Potassium 4.5 3.5 - 4.9 mmol/L 09/23/2022 7:[address] [facility] [place] Blood 09/23/2022 7:39 AM EST 09/23/2022 7:[address] [facility] - 09/23/2022 7:47 AM EST Aerial Survey Technician ID is - [id number] us Pelon Mendoza MD POINT OF CARE TEST ORDERAB LES Final Result Performing Organization Address [facility]/ZIP Co de Phone Number [facility] [address] [phone] * ECG 12 lead (09/23/2022 7:13 AM EST) VENTRICULAR RATE EKG/MIN 72 BPM GE MUSE ATRIAL RATE (MCT) 72 BPM GE MUSE AL Interval 144 ms GE MUSE QRS-INTERVAL (MSEC) 76 ms GE MUSE QT Interval 410 ms GE MUSE QTC Interval 448 ms GE MUSE P [place] 79 degrees GE MUSE R AXIS (MCT) 71 degrees GE MUSE T Wave [place] 68 degrees GE MUSE [place] Diagnosis Normal sinus rhythm Normal ECG No previous ECGs available Confirmed by Lottie VU, GARFIELD ([id number]), magazine editor LEO VALDIVIA ([id number]) on 09/23/2022 3:18:05 PM GE MUSE 09/23/2022 7:13 AM EST 09/23/2022 3:18 PM EST us Cb Renee MD ECG ORDERABLES Final Result Performing Organization Address [facility]/ZIP Co de Phone Number GE MUSE * [...] Intra-op 0818 (Given - Provid er: Cb Rneee MD) fentaNYL (SUBLIMAZE) injection 25 mcg 25 [...] Saline Lock IV (CANCELED) Routine, Once, On Mema 3 at 0727, For 1 occurrence, Pre-op And sodium chloride 0.9% (NS) flush 10 mLJump to med 10 mL As needed, intravenous, line care, Starting on Emma 09/23/22 at 0726, Every 8 hours and PRN to flush, Pre-op documented in this encounter
--- OUTSIDE RECORDS SUMMARY | 2024-06-19 08:40 | XMS_ITS | Encounter Summary ---
Author Organization [facility] [employer] Address [address] [place] [address] Care Team Providers Care Hoist Cylinder Loader Name Role Phone Unavailable Primary Care Provider Unavailabl e Encounter Details Date Type Department Care Team (Late st Contact Info) Description 05/30/2020 Historic Encounter [address] [address] ProviderJen Historical Social History Tobacco [...] Associated Diagnosis Comments NOVEL CORONAVIRUS 2019 PCR ([facility] DATA CONV) Routine 05/30/2020 8:28 AM EST documented in this encounter Results * NOVEL CORONAVIRUS 2019 PCR ([facility] DATA CONV) (05/30/2020 8:28 AM EST) Novel COVID 2019 PCR NOT DETECTED NEGATIVE- NEGATIVE [facility] Comment: Testing performed at: [facility] [address] [place] [address], [facility] [address] [place] [address] Director: SHABNAM PRESSLEY, PHD ?? CLIA#:[id number] 05/30/2020 8:28 AM EST [facility] Historical Provider BODY FLUIDS AND STOOLS ORDERABLES Final Result [facility] [address] [place] [address], [facility] [phone] documented in this encounter Visit Diagnoses Not on filedocumented in this encounter
--- OUTSIDE RECORDS SUMMARY | 2024-06-19 08:40 | XMS_ITS | Encounter Summary ---
Author Organization [facility] [facility] [employer] Address [address] [place] [address] Care Team Providers Care Computer Service Technician Name Role Phone Unavailable Primary Care Provider Unavailabl e Reason for Visit * Reason Comments Catheter problem Encounter Details Date Type Department Care Team (Late st Contact Info) Description 05/21/2023 9:49 PM EDT - 05/21/2023 11:44 PM EDT Emergency [facility] Emergency Department [address] [place] [address] [place] [address] Peritoneal dialysis catheter in place (HCC) (Primary [...] follow-up with your primary care provider and solutions architect. Please return to ER for new or [...] subcutaneously 3 (three) times daily before meals. documented as of this encounter ED Notes [...] follow-up on Tuesday Amilcar Porter MD 05/21/23 7024 * Мария Treadwell PA-C - 05/21/2023 9:50 [...] CATHETER PLACEMENT),; Surgeon: Cb Renee MD; Location: [facility]; Service: General Surgery; Laterality: N/A; IN [...] 60 mL (15 g Oral Given 05/21/23 6068) Results for orders placed or performed during [...] UA Colorless Clarity, UA Clear Clear Specific [place], UA 1.008 1.005 - 1.030 pH, UA [...] primary care provider as well as the solutions architect managing her kidney dysfunction. We advised herto return to ER for any new or worsening symptoms. Assessment & Plan Clinical Impression Diagnosis Comment Added By Time Added Peritoneal dialysis catheter in place (HCC) Мария Treadwell PA-C 05/21/2023 11:12 PM Disposition Discharge [1] - 05/21/2023 11:11 PM New Prescriptions No medications on file Electronically Signed By Мария Treadwell PA-C 05/21/23 6750 Cosigned by Amilcar Porter MD at 05/22/2023 7:14 PM EST WORKER * Rae Land RN - 05/21/2023 9:46 [...] None Seen /HPF 05/21/2023 10:50 PM EDT [facility] RBC, UA 0-2(A) None Seen /HPF 05/21/2023 10:50 PM EDT [facility] Bacteria, UA None Seen Trace, None Seen 05/21/2023 10:50 PM EDT [facility] SQUAMOUS EPITHELIAL 3-5(A) None Seen /HPF 05/21/2023 10:50 PM EDT [facility] Urine URINE SPECIMEN COLLECTION, CLEAN CATCH / Unknown 05/21/2023 10:35 PM EDT 05/21/2023 10:35 PM EDT us Мария Treadwell PA-C URINE ORDERABLES Final Result [facility] [address] [place] [address], [facility] [phone] * (ABNORMAL) Urinalysis, Reflex Microscopic and Culture If Indicated (05/21/2023 10:35 PM EDT) Color, UA Colorless 05/21/2023 10:50 PM EDT [facility] Clarity, UA Clear Clear 05/21/2023 10:50 PM EDT [facility] Specific [place], UA 1.008 1.005 - 1.030 05/21/2023 10:50 PM EDT [facility] pH, UA 7.0 6.0 - 8.0 05/21/2023 10:50 PM EDT [facility] Leukocytes, UA Negative Negative 05/21/2023 10:50 PM EDT [facility] Nitrite, UA Negative Negative 05/21/2023 10:50 PM EDT [facility] Protein, UA Trace(A) Negative 05/21/2023 10:50 PM EDT [facility] Glucose, UA Trace(A) Normal 05/21/2023 10:50 PM EDT [facility] Ketones, UA Negative Negative 05/21/2023 10:50 PM EDT [facility] Bilirubin, UA Negative Negative 05/21/2023 10:50 PM EDT [facility] Blood, UA Negative Negative 05/21/2023 10:50 PM EDT [facility] Urobilinogen, UA Normal Normal 05/21/2023 10:50 PM EDT [facility] Specimen Source Urine, Clean Catch 05/21/2023 10:50 PM EDT [facility] Urine URINE SPECIMEN COLLECTION, CLEAN CATCH / Unknown 05/21/2023 10:35 PM EDT 05/21/2023 10:35 PM EDT Мария Treadwell PA-C URINE ORDERABLES Final Result [facility] [address] [phone] * Magnesium (05/21/2023 10:14 PM EDT) Magnesium 1.7 1.5 - 2.4 mg/dL 05/21/2023 10:38 PM EDT [facility] Blood Venipuncture / Unknown 05/21/2023 10:14 PM EDT 05/21/2023 10:14 PM EDT us Мария Treadwell PA-C LAB BLOOD ORDERABLES Final Re sult [facility] [address] [place] [address], [facility] [phone] * (ABNORMAL) Basic Metabolic Panel (05/21/2023 10:14 PM EDT) Sodium 141 136 - 146 meq/L 05/21/2023 10:39 PM EDT [facility] Potassium 5.5(H) 3.5 - 5.1 meq/L 05/21/2023 10:39 PM EDT [facility] Chloride 113(H) 102 - 112 meq/L 05/21/2023 10:39 PM EDT [facility] CO2 22 21 - 32 meq/L 05/21/2023 10:39 PM EDT [facility] Anion Gap 12 9 - 20 05/21/2023 10:39 PM EDT [facility] BUN 67(H) 7 - 22 mg/dL 05/21/2023 10:39 PM EDT [facility] Creatinine 8.24(HH) 0.55 - 1.02 mg/dL 05/21/2023 10:39 PM EDT [facility] BUN/Creatinine 8 8 - 20 05/21/2023 10:39 PM EDT [facility] Glucose 205(H) 74 - 106 mg/dL 05/21/2023 10:39 PM EDT [facility] Calcium 9.0 8.5 - 10.1 mg/dL 05/21/2023 10:39 PM EDT [facility] Osmolality Calc 306.6 10:39 PM EDT [facility] eGFR (mL/min/1.73m2) 6(L) >=60 mL/min/1.7 3m2 05/21/2023 10:39 PM EDT [facility] Comment:eGFR of <60 suggests chronic kidney disease if found over a 3 month period of time. eGFR <15 indicates renal failure. Blood Venipuncture / Unknown 05/21/2023 10:14 PM EDT 05/21/2023 10:14 PM EDT Мария Treadwell PA-C LAB BLOOD ORDERABLES Final Re sult [facility] [address] [place] [address], [facility] [phone] * (ABNORMAL) CBC with Auto Diff (05/21/2023 10:14 PM EDT) WBC 6.3 3.9 - 10.0 K/??L 05/21/2023 10:18 PM EDT [facility] RBC 2.86(L) 3.93 - 6.08 M/??L 05/21/2023 10:18 PM EDT [facility] Hemoglobin 9.1(L) 11.2 - 15.7 GM/DL 05/21/2023 10:18 PM EDT [facility] Hematocrit 27.7(L) 34.1 - 44.9 % 05/21/2023 10:18 PM EDT [facility] MCV 97(H) 79 - 95 fL 05/21/2023 10:18 PM EDT [facility] MCH 31.8 25.6 - 32.2 pg 05/21/2023 10:18 PM EDT [facility] MCHC 32.9 32.2 - 36.5 GM/DL 05/21/2023 10:18 PM EDT [facility] RDW 12.2 11.6 - 14.4 % 05/21/2023 10:18 PM EDT [facility] Platelets 122(L) 163 - 369 K/CU MM 05/21/2023 10:18 PM EDT [facility] MPV 12.2 9.4 - 12.4 fL 05/21/2023 10:18 PM EDT [facility] % Neutros 50 34 - 71 % 05/21/2023 10:18 PM EDT [facility] % Lymphs 39 19 - 53 % 05/21/2023 10:18 PM EDT [facility] % Monos 6 4 - 13 % 05/21/2023 10:18 PM EDT [facility] % Eos 4 1 - 7 % 05/21/2023 10:18 PM EDT [facility] % Baso 1 0 - 1 % 05/21/2023 10:18 PM EDT [facility] # Neutros 3.18 1.56 - 6.13 K/??L 05/21/2023 10:18 PM EDT [facility] # Lymphs 2.46 1.18 - 3.74 K/??L 05/21/2023 10:18 PM EDT [facility] # Monos 0.39 0.24 - 0.82 K/??L 05/21/2023 10:18 PM EDT [facility] # Eos 0.23 0.04 - 0.54 K/??L 05/21/2023 10:18 PM EDT [facility] # Baso 0.03 0.01 - 0.08 K/??L 05/21/2023 10:18 PM EDT [facility] Immature Granulocytes-Re lative 0.20 0.00 - 0.60 % 05/21/2023 10:18 PM EDT [facility] # IG 0.01 0.00 - 0.05 K/uL 05/21/2023 10:18 PM EDT [facility] Blood Venipuncture / Unknown 05/21/2023 10:14 PM EDT 05/21/2023 10:14 PM EDT Narrative [facility] - 05/21/2023 10:18 PM EDT When [...] PA-C LAB BLOOD ORDERABLES Final Re sult [facility] [address] [phone] documented in this encounter Visit Diagnoses Diagnosis [...]
--- OUTSIDE RECORDS SUMMARY | 2024-06-19 08:40 | XMS_ITS | Encounter Summary ---
Author Organization [employer] [facility] [employer] Address [address] [place] [address] Care Team Providers Care Pecan Sheller Name Role Phone Unavailable Primary Care Provider Unavailabl e Reason for Visit * Reason Comments Post-Op Follow-up laparoscopic periton eal dialysis catheter placement Encounter Details Date Type Department Care Team (Late st Contact Info) Description 09/27/2022 1:00 PM EDT Office Visit [facility] [address] [facility] [address] [place] [address] Ace Simms PA-C [address] [facility] [address] [place] [address] Stage 4 chronic kidney disease (HCC) (Primary [...]
--- OUTSIDE RECORDS SUMMARY | 2024-06-19 08:40 | XMS_ITS | Encounter Summary ---
Author Organization [facility] Address [address] [place] [address] Care Team Providers Care Airfield Services Officer Name Role Phone Unavailable Primary Care [...] release of HIV test results or diagnoses. [id number] Health Encounter Details Date Type Department Care Team (Late st Contact Info) Description 09/16/2023 Telephone [facility] Kidney Transplant at [address] [address] Bernardo White MA Social History [...]
--- OUTSIDE RECORDS SUMMARY | 2024-06-19 08:40 | XMS_ITS | Encounter Summary ---
Author Organization [facility] Address [address] [place] [address] Care Team Providers Care Java Manager Name Role Phone Unavailable Primary Care [...] release of HIV test results or diagnoses. [id number] Health Encounter Details Date Type Department Care Team (Latest Contact Info) Description 10/17/2023 2:37 PM EDT - 10/17/2023 11:59 PM EDT Hospital Encounter [facility] Radiology [address] [place] [phone] System, Provider Not In Discharge Disposition: Home [...]
--- OUTSIDE RECORDS SUMMARY | 2024-06-19 08:40 | XMS_ITS | Encounter Summary ---
Author Organization [facility] Address [address] [place] [address] Care Team Providers Care Crm Marketing Specialist Name Role Phone Unavailable Primary [...] release of HIV test results or diagnoses. [id number] Health Encounter Details Date Type Department Care Team (Late st Contact Info) Description 10/13/2023 Abstract [facility] Kidney Transplant at [address] [phone] Leticia Gregory ESRD (end stage renal disease) on dialysis ([facility]) (Primary Dx) Social History [...] finished. CT ABD/PELV from 05/21/2023 requested from [facility] at [facility]. [facility] to push image to [facility] PACS. Sent email to PACS to mergeinto patient's chart. documented in this encounter Plan of Treatment Not on file documented as of this encounter Visit Diagnoses Diagnosis ESRD (end stage renal disease) on dialysis ([facility])- Primary End stage renal disease documented in this encounter
--- OUTSIDE RECORDS SUMMARY | 2024-06-19 08:40 | XMS_ITS | Encounter Summary ---
Author Organization [employer] [facility] Address [address] [place] [address] Care Team Providers Care Poultry Farm Manager Name Role Phone Unavailable Primary Care Provider Unavailabl e Encounter Details Date Type Department Care Team (Late st Contact Info) Description 01/19/2020 Historic Encounter [facility] Radiology [address] [phone] Maikol Leslie MD [address] [place] [address] Social History Tobacco Use Types Packs/Day Years [...]
--- OUTSIDE RECORDS SUMMARY | 2024-06-19 08:40 | XMS_ITS | Encounter Summary ---
Author Organization [employer] [facility] [employer] Address [address] [place] [address] Care Team Providers Care Boiler Testing Technician Name Role Phone Unavailable Primary Care Provider Unavailabl e Encounter Details Date Type Department Care Team (Late st Contact Info) Description 09/06/2022 Orders Only [facility] [address] [facility] [address] [place] [address] Ibrahima Talamantes MD [address] [facility] [address] [place] [address] Social History Tobacco Use Types [...]
--- OUTSIDE RECORDS SUMMARY | 2024-06-19 08:40 | XMS_ITS ---
Author Organization [facility] Address [address] [place] [address] Care Team Providers Care Senior Quality Assurance Analyst Name Role Phone Unavailable Primary Care Provider Unavailabl e Transplant Episode Kidney Candidate [facility] ([place], [place]) - [facility] Referred on 09/06/2023 Marked as Ineligible on 12/08/2023 Reason: Transplanted at Another Center Kidney CoordinatorVivian Dee RN Phone: N/A Fax: N/A Email: N/A Scores Score Value Updated Exceptions/Reas ons CPRA Not available EPTS (Calc) 29 06/19/2024 Care Team Name Role Phone Fax Email Vivian Dee RN Kidney Coordinator N/A N/A N/A Amish Ritchie MD Txp Logistics Supply Officer N/A N/A N/A Vivian Dee RN Txp Pre Coordinator N/A N/A N/A Mukul Stevens MD Referring Physician N/A N/A N/A Events Pre-Transplant Referred: 09/06/2023 Dialysis History Dialysis History Start End Type Comments Center 11/08/2022 Peritoneal [facility] Dialysis Center Information Center Phone Fax Address [facility] [phone] [facility], [address] [place] [address]
--- OUTSIDE RECORDS SUMMARY | 2024-06-19 08:40 | XMS_ITS | Encounter Summary ---
Author Organization [employer] [facility] Address [address] [place] [address] Care Team Providers Care Lock Tender Chief Operator Name Role Phone Unavailable Primary Care Provider Unavailabl e Reason for Visit * Reason Comments New Patient peritoneal dialysis catheter evaluation * Surgical (Routine) - Closed Specialty Diagnoses / Procedures Referred By Contac t Referred To Contact General Surgery Diagnoses CKD (chronic kidney disease) Ibrahima Talamantes MD [address] [place] [address] [address] [place] [address] Phone: tel: fax: Cb Renee MD [address] [place] [address] [address] Phone: tel: fax: Referral ID Status Reason Start Date Expiration Date Visits Re quested Visits Authorized [id number] Closed 09/07/2022 03/06/2023 1 1 Encounter Details Date Type Department Care Team (Late st Contact Info) Description 09/13/2022 10:00 AM EST Office Visit [facility] [address] [place] [address] [address] [place] [address] Cb Renee MD [address] [place] [address] [address] [id number] Stage 4 chronic kidney disease (HCC) (Primary [...] dialysis catheter on September 23, 2022 at [facility]. Electronically signed by Annmarie Nowak CMA - 09/13/2022 - 10:14 AM EST RN documented in this encounter Plan of Treatment Not on file documented as of this encounter Visit Diagnoses Diagnosis Stage 4 chronic kidney disease (HCC)- Primary documented in this encounter
--- OUTSIDE RECORDS SUMMARY | 2024-06-19 08:40 | XMS_ITS | Encounter Summary ---
Author Organization [facility] Address [address] [place] [address] Care Team Providers Care Estate Planner Name Role Phone Unavailable Primary Care [...] release of HIV test results or diagnoses. [id number] Health Encounter Details Date Type Department Care Team (Late st Contact Info) Description 10/24/2023 Telephone [facility] Kidney Transplant at [address] [address] Sarai Montiel MA Social History [...]
--- OUTSIDE RECORDS SUMMARY | 2024-06-19 08:40 | XMS_ITS | Encounter Summary ---
Author Organization [facility] Address [address] [place] [address] Care Team Providers Care Utility Driver Name Role Phone Unavailable Primary Care Provider [...] release of HIV test results or diagnoses. [id number] Health Encounter Details Date Type Department Care Team (Late st Contact Info) Description 09/08/2023 Chart Note [facility] Kidney Transplant at [address] [address] Salomón Small Transplant Eval Authorization [...] Transplant Eval Authorization Organ:kidney Insurance Co:Stepan TREVINO [facility] Apple Peeler Operator: Phone: Fax: Auth#:[id number] Travel/Lodging:n Dates of Service:09/07/23 to 03/05/24 Additional Info: Evaluation for Patient/donor can be done Cleared for eval Test at [facility] documented in this encounter Plan of Treatment Not on file documented as of this encounter Visit Diagnoses Not on filedocumented in this encounter
--- OUTSIDE RECORDS SUMMARY | 2024-06-19 08:40 | XMS_ITS | Encounter Summary ---
Author Organization [facility] Address [address] [place] [address] Care Team Providers Care Journeyman Painter Name Role Phone Unavailable Primary Care [...] release of HIV test results or diagnoses. [id number] Health Encounter Details Date Type Department Care Team (Late st Contact Info) Description 09/06/2023 Telephone [facility] Kidney Transplant at [address] [address] Bernardo White MA Social History [...] EST This FEDERICO sent referring office an [employer] fax to inform of referral acceptance.This FEDERICO scanned into media tab [id number]. documented in this encounter Plan of Treatment Not on file documented as of this encounter Visit Diagnoses Not on filedocumented in this encounter
--- OUTSIDE RECORDS SUMMARY | 2024-06-19 08:40 | XMS_ITS | Referral Summary ---
Author Organization [employer] [facility] Address [address] [place] [address] Care Team Providers Care Belt Puncher Name Role Phone Unavailable Primary Care Provider [...] Date Blaine rded Speak language other than Comoran at home Not on file 07/30/2023 Want [...] Plan of Treatment Not on file Insurance [facility] Advance Directives For more information, please contact: [phone] * Full Code (Latest Code Status on File) Date Activated Date Inactivated Comments 09/23/2022 6:27 AM 09/23/2022 11:31 AM
--- OUTSIDE RECORDS SUMMARY | 2024-06-19 08:40 | XMS_ITS | Encounter Summary ---
Author Organization [employer] [facility] Address [address] [place] [address] Care Team Providers Care Project Design Engineer Name Role Phone Unavailable Primary Care Provider Unavailabl e Encounter Details Date Type Department Care Team (Late st Contact Info) Description 09/15/2021 Transcribed Document [facility] [address] [place] [address] ProviderLaury MD [address] [place] [address] Social History Tobacco Use Types Packs/Day [...] - Laury ProviderMD - 09/15/2021 11:12 AM FURNACE UNLOADER Broset Violence Assessment Entered On: 09/15/2021 12:44 EST Performed On: 09/15/2021 12:43 EST by AUSTIN AVILES RN Broset Violence Assessment Broset Violence Checklist of Symptoms : None Broset Violence Symptoms Subtotal : 0 Broset Violence Symptoms Indicator : Low risk (0) AUSTIN AVILES RN - 09/15/2021 12:43 EST Electronically signed by Interface, [facility] Conversion Waiter/Waitress Cerner at 11/02/2022 10:10 AM CDT documented in this encounter Plan of Treatment Not on file documented as of this encounter Visit Diagnoses Not on filedocumented in this encounter
--- OUTSIDE RECORDS SUMMARY | 2024-06-19 08:40 | XMS_ITS | Encounter Summary ---
Author Organization [employer] [facility] Address [address] [place] [address] Care Team Providers Care Director Hydrogen Storage Engineering Name Role Phone Unavailable Primary Care Provider Unavailabl e Reason for Visit * Auth/Cert Specialty Diagnoses / Procedures Referred By Xochitl burt Referred To Contact Diagnoses Chronic kidney disease, stage IV (severe) (HCC) Chronic kidney disease, Procedures MS LAP INSERTION TUNNELED INTRAPERITONEAL CATHETER LAPAROSCOPY, WITH PERITONEAL [place]IAL[place] [address] [place] [address] [place] [address] Phone: tel: fax: Referral ID Status Reason Start Date Expiration Date Visits Re quested Visits Authorized [id number] 09/13/2022 1 1 Encounter Details Date Type Department Care Team (Late st Contact Info) Description 09/23/2022 8:00 AM EST - 09/23/2022 9:20 AM EST Surgery [facility] Operating Room [address] [phone] Cb Renee MD [address] [place] [address] [place] [address] LAPAROSCOPIC PD CATHETER PLACEMENT), Social History Tobacco [...] for 24 hours or while taking narcotics GER HARDWARE * Attachments The following attachments cannot be sent through Care Everywhere. * General Anesthesia Adult Care After (Macanese) * Peritoneal Dialysis Catheter Placement Care After (Macanese) * Acetaminophen; Hydrocodone Capsules or Tablets (Macanese) documented in this encounter Medications at [...] this encounter H&P Notes * Mare Rodgers, CROP SPECIALIST - 09/23/2022 8:00 AM EST HPI History [...] ??? POC-EGFR 09/23/2022 8 mL/min/1.73M2 Final ??? Hot Roller 09/23/2022 [id number] Final ??? POC-Creatinine 09/23/2022 6.3 (A) 0.6 - 1.3 mg/dL Final No image results found. Assessment & Plan Renal failure DM Hyperparathyroidism Anemia HTN HLD Hyperkalemia Pt to proceed with surgery, DC home today. Electronically signed by: Mare Rodgers APRN, 09/23/2022 at 8:32 AM Cosigned by Cb Renee MD at 09/23/2022 2:25 PM EST GER HARDWARE GER HARDWARE Associated attestation - Cb Renee MD - 09/23/2022 1:25 PM MANAGER HARDWARE Patient seen and examined by myself. Agree [...] dialysis catheter on September 23, 2022 at [facility]. ?? Electronically signed by Annmarie Nowak CMA - 09/13/2022 - 10:14 AM EST ?? Patient?? Crystal Archer 32 year old female 1990 ?? [address] [facility] [address] ?? [phone] (M) [phone] (H) Comm Pref: Recent Visits with You 09/13/2022 Office Visit More...?? Significant History/Details?? Smoking Former Smoker (Quit Date: ) Smokeless Tobacco Never Used Alcohol Not Currently Preferred Language Macanese Specialty Comments Edit Show all No comments regarding your specialty Family Comments Edit None Care Team and Communications?? No referring provider ?? No PCP set ?? No other patient care team members ?? Visit Treatment Team Relationship Cb Renee MD Surgeon ? Recipients of Automatic ADT Notifications for This Admission Show All Admissions No notifications found. Social Determinants of Health?? Find [employer] resources Imported [email or web address] Documents Created Type Source 04/11/2022 Continuity of Care Document?? [facility] 03/18/2022 Continuity of Care Document?? [facility] 03/17/2022 Continuity of Care Document?? [facility] Since Your Last Visit (Today)?? [...] Labs and Imaging No resulted procedures found. GER HARDWARE documented in this encounter Miscellaneous Notes * Nursing Progress Notes - Yue Jacome RN - 09/23/2022 9:52 AM EST Pt has abd pad with binder GER HARDWARE * Op Note - Cb Renee MD - 09/23/2022 9:18 AM EST DATE OF PROCEDURE: 09/23/2022 PREOPERATIVE DIAGNOSIS: Chronic kidney disease. POSTOPERATIVE DIAGNOSIS: Chronic kidney disease. PROCEDURE PERFORMED: Laparoscopic placement of peritoneal dialysis catheter. STRATIGRAPHY TEACHER: Wil Chawla. ANESTHESIA: General endotracheal. FINDINGS: The [...] was taken to Recovery in stable condition. /[id number] Cb Renee MD [facility] / [facility] [place] /[id number] GER HARDWARE documented in this encounter Plan of Treatment Not on file documented as of this encounter Procedures Procedure Name Priority Date/Time Associated Diagnosis Comments NOVA GLUCOSE POC Routine 09/23/2022 8:51 AM EST MS LAP INSERTION TUNNELED INTRAPERITONEAL CATHETER 09/23/2022 7:50 AM EST Chronic kidney disease, stage IV (severe) ([facility]) FS_MODEL_IP POCT , URINE Routine 09/23/2022 7:42 AM EST ISTAT GLUCOSE POC Routine 09/23/2022 7:3 9 AM EST POCT-CREATININE Routine 09/23/2022 7:39 AM EST POCT-POTASSIUM STAT 09/23/2022 7:39 AM EST FS_MODEL_IP_ECG 12-LEAD Routine 09/24/19 7:13 AM EST EKG-SCANNED 09/23/2022 documented in this encounter Results * (ABNORMAL) Glucose, Nova Meter (09/23/2022 8:51 AM EST) [facility] POC-GLUCOSE 177(H) 70 - 110 mg/dL 09/23/2022 8:52 AM EST [facility] Comment:Notified Nurse RBV Hot Roller [id number] 09/23/2022 8:52 AM EST [facility] Blood WHOLE BLOOD / Unknown 09/23/2022 8:51 AM EST 09/23/2022 8:52 AM EST Narrative [facility] - 09/23/2022 8:52 AM EST Hot Roller ID is - [id number] us Cb Renee MD POINT OF CARE TEST ORDERABLES Fi nal Result [facility] [address] [phone] * POCT , urine (09/23/2022 7:42 AM EST) [facility] POC, URINE HCG Negative Negative INTERNAL QC (VALID/INVALID ) Valid Kit Lot Number [id number] Expiration Date 09/15/2023 09/23/2022 7:42 AM EST us Pelon Mendoza MD FS_MODEL_IP_POINT OF CARE TEST ENTER/EDIT ORDERABLES Final Result * (ABNORMAL) POC-Creatinine (09/23/2022 7:39 AM EST) [facility] POC-EGFR 8 mL/min/1. 73M2 09/23/2022 7:47 AM [facility] Comment:Proceed with contras t if eGFR > 45 ml/min/1.73 when performed on the NovaSTAT strip Creatinine meter. Hot Roller [id number] 09/23/2022 7:47 AM EST [facility] POC-Creatinine 6.3(H) 0.6 - 1.3 mg/dL 09/23/2022 7:47 AM EST [facility] Blood 09/23/2022 7:39 AM EST 09/23/2022 7:47 AM EST Narrative [facility] - 09/23/2022 7:47 AM EST Hot Roller ID is - [id number] us Cb Renee MD POINT OF CARE TEST ORDERABLES Fi nal Result Performing Organization Address [facility] Co de Phone Number [facility] [address] [phone] * Glucose, iSTAT Meter (09/23/2022 7:39 AM EST) [facility] POC-GLUCOSE 87 70 - 105 mg/dL 09/23/2022 7:47 AM [facility] Blood 09/23/2022 7:39 AM EST 09/23/2022 7:47 AM EST Narrative [facility] - 09/23/2022 7:47 AM EST Hot Roller ID is - [id number] us Cb Renee MD POINT OF CARE TEST ORDERABLES Fi nal Result Performing Organization Address [facility]/ZIP Co de Phone Number [facility] [address] [place] [address], [facility] [phone] * POC-Potassium (09/23/2022 7:39 AM EST) [facility] POC Potassium 4.5 3.5 - 4.9 mmol/L 09/23/2022 7:47 AM [facility] Blood 09/23/2022 7:39 AM EST 09/23/2022 7:47 AM EST Narrative [facility] - 09/23/2022 7:47 AM EST Hot Roller ID is - [id number] us Pelon Mendoza MD POINT OF CARE TEST ORDERAB LES Final Result Performing Organization Address [facility]/ZIP Co de Phone Number [facility] [address] [phone] * ECG 12 lead (09/23/2022 7:13 AM EST) VENTRICULAR RATE EKG/MIN 72 BPM GE MUSE ATRIAL RATE (MCT) 72 BPM GE MUSE MS Interval 144 ms GE MUSE QRS-INTERVAL (MSEC) 76 ms GE MUSE QT Interval 410 ms GE MUSE QTC Interval 448 ms GE MUSE P Cedar 79 degrees GE MUSE R AXIS (MCT) 71 degrees GE MUSE T Wave Cedar 68 degrees GE MUSE Holman Diagnosis Normal sinus rhythm Normal ECG No previous ECGs available Confirmed by Lottie VU, GARFIELD ([id number]), supervising editor trailer LEO VALDIVIA ([id number]) on 09/23/2022 3:18:05 PM GE MUSE 09/23/2022 7:13 AM EST 09/23/2022 3:18 PM EST us Cb Renee MD ECG ORDERABLES Final Result Performing Organization Address [facility] Co de Phone Number GE MUSE [...]
--- OUTSIDE RECORDS SUMMARY | 2024-06-19 08:40 | XMS_ITS | Encounter Summary ---
Author Organization [employer] [facility] [employer] Address [address] [place] [address] Care Team Providers Care Police Communications Operator Name Role Phone Unavailable Primary Care [...]
--- OUTSIDE RECORDS SUMMARY | 2024-06-19 08:40 | XMS_ITS | Encounter Summary ---
Author Organization [employer] [facility] [employer] Address [address] [place] [address] Care Team Providers Care Stock Mixer Name Role Phone Unavailable Primary Care Provider Unavailabl e Encounter Details Date Type Department Care Team (Late st Contact Info) Description 01/19/2020 Transcribed Document [facility] [place] [address] [place] [address] ProviderLaury MD [address] [place] [id number] Social History Tobacco Use Types Packs/Day Years [...] Obtained From : Patient Primary Language : Gabonese Preferred Communication Mode : Verbal Communication Barrier : None Safety Grooving Machine Operator Needed : No OCTAVIO BRAND RN - [...] Scale Risk Level : 0-24 Low Risk [place] Fall Interventions : Adequate lighting, Bed in low position, Call device within reach, Fall prevention handout/education per facility policy, Hourly comfort/safety rounds, Non-slip footwear, Personal items within reach, Reinforced to call for assistance before getting out of bed, Room free of clutter/spills, Upper side-rails up, Wheels locked, Wires/Cords secured OCATVIO BRAND RN - 01/19/2020 8:36 EDT Health [...] Source : Stated Height Entry Format : [place] Height, Feet : 5 ft(Converted to: 152 cm, 60 Inch) Height, Inches : 5 Inch(Converted to: 0 ft 5 Inch, 12.70 cm) Clinical Height : 165.1 cm Weight Source : Standing scale Weight Entry Format : [place] Clinical Dosing Weight : 104.91 kg Weight, Pounds : 230.8 lb Body Surface Area (BSA) : 2.1 m2 Body Mass Index : 38.5 kg/m2 (HI) [place] Body Weight : 57 kg OCTAVIO BRAND [...] OCTAVIO BRAND RN - 01/19/2020 8:36 EDT [place] Suicide Severity Rating Scale (C-SSRS) CSSRS Past [...]
--- OUTSIDE RECORDS SUMMARY | 2024-06-19 08:40 | XMS_ITS | Encounter Summary ---
Author Organization [facility] Address [address] [place] [address] Care Team Providers Care Workers Compensation Examiner Name Role Phone Unavailable Primary Care [...] release of HIV test results or diagnoses. [id number] Health Encounter Details Date Type Department Care Team (Late st Contact Info) Description 11/30/2023 Chart Note [facility] Kidney Transplant at [address] [address] Leticia Gregory Chart and excel [...]
--- OUTSIDE RECORDS SUMMARY | 2024-06-19 08:40 | XMS_ITS | Encounter Summary ---
Author Organization [facility] Address [address] [place] [address] Care Team Providers Care Sap Abap Programmer Name Role Phone Unavailable Primary Care Provider [...] release of HIV test results or diagnoses. [id number] Health Encounter Details Date Type Department Care Team (Late st Contact Info) Description 10/03/2023 Telephone [facility] Kidney Transplant at [address] [address] Bernardo White MA Social History [...] PM EDT Email address for video link [email or web address] Transplant Referral Questionnaire Basic Info Previously [...] Where do you normally receive your medical care?[facility] stuff TAD or [facility] Kidney biopsy (When? Where) [facility] Stress Test :( When? Where?) (Only obtain if in last 12 months) yes Echocardiogram: (When? Where?) (Only obtain if in last 12 months) yes Routine Health Maintenance - Remind patient to update as need PAP: mar 2023 Mammogram: mar 2023 Colonoscopy (Where? When?): no Dental/Wear Dentures: no COVID Vaccine: no Hepatitis B vaccine series: no Additional Information:. Living Donor(s): no Reminders ([facility] Appointments ONLY): Long appointment , eat lunch [...]
--- OUTSIDE RECORDS SUMMARY | 2024-06-19 08:41 | XMS_ITS | Encounter Summary ---
Author Organization [employer] Address [address] [place] [address] Care Team Providers Care Material Man Name Role Phone Unavailable Primary Care Provider Unavailabl e Encounter Details Date Type Department Care Team (Late st Contact Info) Description 11/19/2018 Transcribed Document [facility] [place] [address] [place] [address] ProviderLaury MD [address] [place] [address] [phone] Social History Tobacco Use Types Packs/Day Years [...] : No GI 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 : No Reactor Fueling Supervisor Hx : No Heart Attack : No [...] Mode : Verbal Languages : Citizen Of [place] Child/Parent Domestic Concerns : None Threats of Suicide : No Marry Erickson 11/18/2018 20:14 EDT Height and Weight Height Source : Stated Height Entry Format : [place] Height, Inches : 65 Inch(Converted to: 5 ft 5 Inch, 165.10 cm) Clinical Height : 165.1 cm Weight Source : Bed scale Weight Entry Format : [place] Weight, Pounds : 220 lb Clinical Dosing Weight : 100 kg Body Surface Area-(BSA) : 2.14 m2 Body Mass Index : 36.7 kg/m2 (HI) [place] Body Weight : 57 kg Marry Erickson [...]
--- OUTSIDE RECORDS SUMMARY | 2024-06-19 08:41 | XMS_ITS | Encounter Summary ---
Author Organization [employer] Address [address] [place] [address] Care Team Providers Care Box Blank Machine Operator Name Role Phone Unavailable Primary Care Provider Unavailabl e Encounter Details Date Type Department Care Team (Late st Contact Info) Description 01/04/2020 Transcribed Document [facility] [place] Family Medicine [address] [place] [address] ProviderLaury MD [address] [place] [address] [phone] Social History Tobacco Use Types Packs/Day Years [...] PROCEDURE: 1. Laparoscopic sleeve gastrectomy SURGEON: Xavi Mjeia M.D. CLOTHING TRADES WORKERS: Daniel steinberg MD ANESTHESIA: General. SPECIMEN: Stomach. INDICATION FOR PROCEDURE: is a 29-year-old patient with shelter history of morbid obesity and CKD, has [...] was done, we proceeded to place the 54-Korean bougie down the esophagus into the stomach under direct visualization. When it was in the antrum, we proceeded to staple the stomach in a parallel manner to the greater curvature, creating a sleeve gastrectomy using the Russell stapler. We used green loads, all reinforced [...] x2. Electronically signed by Zuleyka Byrd Conversion Roller Die Cutting Machine Operator Cerner at 11/02/2022 10:04 AM CDT documented in this encounter Plan of Treatment Not on file documented as of this encounter Visit Diagnoses Not on filedocumented in this encounter
--- OUTSIDE RECORDS SUMMARY | 2024-06-19 08:41 | XMS_ITS | Encounter Summary ---
Author Organization [employer] In [employer]atives Address [address] [place] [address] Care Team Providers Care Short Goods Drier Name Role Phone Unavailable Primary Care Provider Unavailabl e Encounter Details Date Type Department Care Team (Late st Contact Info) Description 08/24/2019 Transcribed Document [facility] [place] [address] [place] [address] ProviderLaury MD [address] [place] [address] [phone] Social History Tobacco Use Types Packs/Day Years [...] - Laury ProviderMD - 08/24/2019 11:11 AM CHARGE MASTER SPECIALIST [facility] IntraOp Summary Primary Physician: LARRY MARTINES MD-BRANDEE Finalized Date/Time: 08/24/19 12:55:12 Pt. Name: FREDDIE ARCHER /Sex: 1990 Female Med Rec #: [id number] Physician: LARRY MARTINES MD-BRANDEE Financial #: [id number] Pt. Type: O Room/Bed: [facility] Admit/Disch: 08/24/19 09:42:00 - Institution: [facility] Endo - Case Attendance Entry 1 Entry 2 Entry 3 Case Attendee LARRY MARTINES Childress, TOBI J, RN ELLIOTT MOURA TECH MD-BRANDEE Role Performed Surgeon/Proceduralist, Straw Hat Plunger Operator, First Scrub, First First Time In 08/24/19 11:09:00 08/24/19 11:09:00 08/24/19 11:09:00 Time Out 08/24/19 11:15:00 08/24/19 11:15:00 08/24/19 11:15:00 Procedure Gastric Biopsy Esophagogastroduodenosco Esophagogastroduodenosco py, Gastric Biopsy py, Gastric Biopsy Other Attendee Superficial Wound Closed By: Last Modified By: ANGE Green RN Childress, TOBI J, RN Childress, TOBI J, RN 08/24/19 11:14:47 08/24/19 11:14:47 08/24/19 11:14:47 Entry 4 Case Attendee MARGRET MCCULLOUGH OFFICE SUPPORT SPECIALIST Role Performed OFFICE SUPPORT SPECIALIST/Nurse Turfgrass Technician Time In 08/24/19 11:09:00 Time Out 08/24/19 11:15:00 Procedure Esophagogastroduodenosco py, Gastric Biopsy Other Attendee Superficial Wound Closed By: Last Modified By: ANGE Green RN 08/24/19 11:14:47 [facility] Endo - Case Attendance Audit 08/24/19 11:14:47 Licensed Psychologist Director: GEOVANNA Modifier: HOLMESTJ 1 <+> Time Out 1 <*> Procedure Gastric Biopsy 2 <+> Time Out 2 <*> Procedure Esophagogastroduodenoscopy, Gastric Biopsy 3 <+> Time Out 3 <*> Procedure Esophagogastroduodenoscopy, Gastric Biopsy 4 <+> Time Out 4 <*> Procedure Esophagogastroduodenoscopy, Gastric Biopsy 08/24/19 11:12:38 Licensed Psychologist Director: HOLMESTJ Modifier: HOLMESTJ <+> 1 Procedure 2 <*> Procedure Esophagogastroduodenoscopy 3 <*> Procedure Esophagogastroduodenoscopy 4 <*> Procedure Esophagogastroduodenoscopy 08/24/19 11:11:44 Licensed Psychologist Director: HOLMESTJ Modifier: HOLMESTJ 2 <+> Time In [...] Endo - Case Times Audit 08/24/19 11:13:59 Licensed Psychologist Director: HOLMESTJ Modifier: HOLMESTJ <+> 1 Out Room Time <+> 1 Stop Time <+> 1 Stop Time 08/24/19 11:11:59 Licensed Psychologist Director: HOLMESTJ Modifier: HOLMESTJ <+> 1 Start Time [facility] - Cultures and Spec Summary Entry 1 Cultrures and Specimens Specimen Ordered: Yes Last Modified By: NAGE Green RN 08/24/19 11:14:38 [facility] - Delays Entry 1 Delay Reason Other Duration 0 Minute(s) Comment NO DELAY Last Modified By: ANGE Green RN 08/24/19 11:09:48 [facility] - Delays Audit 08/24/19 11:09:48 Licensed Psychologist Director: JOHNATHANESTJ Modifier: HOLMESTJ <+> 1 Comment [facility] [...] Modified By: ANGE Green RN 08/24/19 11:09:51 [facility] Endo - Fire Risk Assessment Entry 1 Fire Info Surgical Site or 1- Yes Incision Above the Xyphoid Open O2 Source 1- Yes (Mask or Cannula) Available Ignition 1- Yes (ESU, Laser, Light Source) Fire Risk 3 Assessment Score Fire Score Fire Risk Yes Assessment Complete Fire Risk ANGE Green salt plant operator Verified By Fire Risk 08/24/19 11:10:00 Assessment Verified Date/Time Fire Risk High Risk Protocol Yes Implemented Standard Fire Yes Safety Precautions Followed Last Modified By: ANGE Green RN 08/24/19 11:10:04 [facility] Endo - General Case Billet Heater Operator 1 Case Information OR Endo 01 [facility] Case Level 1 Room Verified Yes Wound Class II - Clean-Contaminated Specialty SN General Anesthesia Type MAC ASA Class 3 Diagnosis Preop Diagnosis GERD Postop Same As Preop No Postop Diagnosis normal EGD Last Modified By: ANGE Green RN 08/24/19 11:11:13 [facility] Endo - General Case Data Audit 08/24/19 11:14:21 Licensed Psychologist Director: JOHNATHANESTJ Modifier: HOLMESTJ <+> 1 Postop Diagnosis [...] Endo - Intraoperative Assessment Audit 08/24/19 12:55:06 Licensed Psychologist Director: GEOVANNA Modifier: HOLMESTJ <+> 1 Prosthetic/Assistive Devices [facility] Endo - Intraoperative Equipment Entry 1 Type [...] Endo - Patient Positioning Audit 08/24/19 11:12:40 Licensed Psychologist Director: CECILEJ Modifier: HOLMESTJ 1 <*> Procedure Esophagogastroduodenoscopy [...] Endo - Sign Out Audit 08/24/19 11:14:13 Licensed Psychologist Director: CECILEJ Modifier: HOLMESTJ <+> 1 RN Sign [...] Endo - Surgical Procedures Audit 08/24/19 11:14:04 Licensed Psychologist Director: GEOVANNA Modifier: HOLMESTJ <+> 1 Stop <+> [...] Endo - Time Out Audit 08/24/19 11:12:41 Licensed Psychologist Director: JOHNATHANESTGiacomo Modifier: HOLMESTJ 1 <*> Procedure to be Performed Esophagogastroduodenoscopy 08/24/19 11:12:26 Licensed Psychologist Director: JOHNATHANESTJ Modifier: HOLMESTJ 1 <*> Beta Renae [...] GEOVANNA Correct Documentation Electronically signed by [facility] Conversion Body Stylist Cerner at 11/02/2022 10:11 AM CDT documented in this encounter Plan of Treatment Not on file documented as of this encounter Visit Diagnoses Not on filedocumented in this encounter
--- OUTSIDE RECORDS SUMMARY | 2024-06-19 08:41 | XMS_ITS | Encounter Summary ---
Author Organization [employer] Address [address] [place] [address] Care Team Providers Care Sales And Service Change Leader Name Role Phone Unavailable Primary Care Provider Unavailabl e Encounter Details Date Type Department Care Team (Late st Contact Info) Description 09/26/2018 Transcribed Document [facility] [place] [address] [place] [address] ProviderLaury MD [address] [place] [address] [phone] Social History Tobacco Use Types Packs/Day Years [...] Complaints Primary Care Provider : Rema Ferreira, Intellectual Property Lawyer Accompanied By : Family/Spouse/SO Arrival Mode : [...] : No GI 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 : No Rickshaw Driver Hx : No Heart Attack : No [...] Preferred Communication Mode : Verbal Languages : Vietnamese Child/Parent Domestic Concerns : None Threats of Suicide : No Dre, Marry Restrepo 09/26/2018 16:51 EDT Height and Weight Height Source : Stated Height Entry Format : [place] Height, Inches : 65 Inch(Converted to: 5 ft 5 Inch, 165.10 cm) Clinical Height : 165.1 cm Weight Source : Stated Type of Weight Measurement Est : [place] Weight, est lb : 213 lb Estimated Clinical Dosing Weight : 96.82 kg [place] Body Weight : 57 kg Body Surface [...] ; Status: Documented ; Ordered As Mnemonic: Roy 5 mg-325 mg oral tablet ; Simple [...] Chisholm RN; Reviewed Date: 09/07/2018 15:26 EST Electronically signed by Zuleyka Byrd Conversion Boat Canvas Maker And Installer Cerner at 10/19/2022 11:22 AM CDT documented in this encounter Plan of Treatment Not on file documented as of this encounter Visit Diagnoses Not on filedocumented in this encounter
--- OUTSIDE RECORDS SUMMARY | 2024-06-19 08:41 | XMS_ITS | Encounter Summary ---
Author Organization [employer] Address [address] [place] [address] Care Team Providers Care House Worker Name Role Phone Unavailable Primary Care Provider Unavailabl e Encounter Details Date Type Department Care Team (Late st Contact Info) Description 01/04/2020 Transcribed Document [facility] [place] Family Medicine [address] [place] [address] ProviderLaury MD [address] [place] [address] [id number] Social History Tobacco Use Types Packs/Day Years [...]
--- OUTSIDE RECORDS SUMMARY | 2024-06-19 08:41 | XMS_ITS | Encounter Summary ---
Author Organization [employer] Address [address] [place] [address] Care Team Providers Care Surveying Or Spatial Science Technician Name Role Phone Unavailable Primary Care Provider Unavailabl e Encounter Details Date Type Department Care Team (Late st Contact Info) Description 01/19/2020 Transcribed Document [facility] [place] [address] [place] [address] ProviderLaury MD [address] [place] [address] [phone] Social History Tobacco Use Types Packs/Day Years [...] - 01/19/2020 16:16 EDT Electronically signed by [facility] Conversion Set Up Mechanic Heading Machines Cerner at 11/02/2022 9:56 AM CDT documented in this encounter Plan of Treatment Not on file documented as of this encounter Visit Diagnoses Not on filedocumented in this encounter
--- OUTSIDE RECORDS SUMMARY | 2024-06-19 08:41 | XMS_ITS | Encounter Summary ---
Author Organization [employer] Address [address] [place] [address] Care Team Providers Care Showroom Manager Name Role Phone Unavailable Primary Care Provider Unavailabl e Encounter Details Date Type Department Care Team (Late st Contact Info) Description 01/07/2020 Transcribed Document [facility] [place] [address] [place] [address] ProviderLaury MD [address] [place] [address] [phone] Social History Tobacco Use Types Packs/Day Years [...] Conversion Note - Laury Conte MD - 01/07/2020 11:01 AM CDT Patient: FREDDIE ARCHER Age: 29 Years Sex: Female : 1990 Admit Date 01/04/2020 04:47 Discharge Date 01/05/2020 14:12 Primary Care Provider ERIKA PERSAUD MD-INT Discharge Diagnosis Morbid obesity 01/05/2020 E66.01 ICD-10-CM Morbid obesity 01/04/2020 E66.01 ICD-10-CM Procedures SN - Proc - Procedure: Gastrectomy Sleeve Laparoscopic (01/04/20 09:17:21) Reason for Hospitalization is a 29-year-old patient with correction history of morbid obesity and CKD, has [...] Int Units = 1 Cap, Oral, Weekly [place] 7.5/325 oral every 6 hours as needed for pain. Zofran 8mg oral every 12 hours as needed for nausea. Prilosec 20mg oral daily. Starts tomorrow. [2] Code Status No Code Status Order on Record Condition on Discharge Stable Consulting Physicians LARRY JAIMES MD-ANS Current Diet Order No qualifying data available. Patient Discharge Summary Orders Discharge Follow Up Instructions: followup next weekCall for [id number] Follow Up Instructions: call office on tuesday [...]
--- OUTSIDE RECORDS SUMMARY | 2024-06-19 08:41 | XMS_ITS | Encounter Summary ---
Author Organization [employer] Address [address] [place] [address] Care Team Providers Care Vacuum Cleaner Mechanic Name Role Phone Unavailable Primary Care Provider Unavailabl e Encounter Details Date Type Department Care Team (Late st Contact Info) Description 01/05/2020 Transcribed Document [facility] [place] Family Medicine [address] [place] [address] ProviderLaury MD [address] [place] [address] [phone] Social History Tobacco Use Types Packs/Day Years [...]
--- OUTSIDE RECORDS SUMMARY | 2024-06-19 08:41 | XMS_ITS | Encounter Summary ---
Author Organization [employer] Address [address] [place] [address] Care Team Providers Care Student Counselor Name Role Phone Unavailable Primary Care Provider Unavailabl e Encounter Details Date Type Department Care Team (Late st Contact Info) Description 01/08/2019 Transcribed Document [facility] [place] Family Medicine [address] [place] [address] ProviderLaury MD [address] [place] [address] [phone] Social History Tobacco Use Types Packs/Day Years [...] Laury ProviderMD - 01/08/2019 12:31 AM CDT [facility] Emergency Department Depart Summary PERSON INFORMATION Name Crystal Archer Age 28 Years 1990 Sex Female Language PCP Marital Status Phone [id number] Visit Id Visit Reason Specialty Enc Type Emergency Med Service Referred by Track Group [facility] Discharge Tracking Id [id number] Checkout 01/07/2019 20:31:56 Checkin 01/07/2019 18:52:00 Acuity 3 - Urgent [facility] Dispo Type Arrival 01/07/2019 18:52:00 Reg Status LOS 000 01:39 Address: [address] [place] [address] [place] [address] POWERFORMS PHYSICIAN NOTES VITALS INFORMATION Vital Sign Triage Temp 99.4 Temp Route Pulse Rate 96 Respiratory Rate 16 Blood Pressure 137/ 85 LOCATION INFORMATION Arrival Nurse Unit Room Bed 01/07/2019 18:52:00 [facility] ED Waitroom ([facility]) 01/07/2019 20:31:56 [facility] ED Checkout ([facility]) MEDICAL INFORMATION Allergy Info: NSAIDs PATIENT EDUCATION INFORMATION Instructions: Follow up: DIAGNOSIS documented in this encounter Plan of Treatment Not on file documented as of this encounter Visit Diagnoses Not on filedocumented in this encounter
--- OUTSIDE RECORDS SUMMARY | 2024-06-19 08:41 | XMS_ITS | Encounter Summary ---
Author Organization [employer] Address [address] [place] [address] Care Team Providers Care Certified Retinal Angiographer Name Role Phone Unavailable Primary Care Provider Unavailabl e Encounter Details Date Type Department Care Team (Late st Contact Info) Description 01/18/2020 Transcribed Document [facility] Family Medicine [address] [place] [address] ProviderLaury MD [address] [place] [address] [phone] Social History Tobacco Use Types Packs/Day Years [...] On: 01/18/2020 20:31 EDT by MARKIE PANG, GUN MECHANIC Triage Across the Room Chief Complaint : I THINK I AM DEHYDRATED, I HAD BARIATRIC SURGERY 01/04/20, GASTRIC SLEEVE, EVERYTIME I EAT OR DRINK I PUKE FRANCISCO REYES RN - 01/19/2020 1:21 EDT Triage Date/Time : 01/18/2020 20:31 EDT MARKIE PANG RN - 01/18/2020 20:31 EDT DCP GENERIC CODE Tracking Group : [facility] Tracking Acuity : 2 - [...] Problems(Active) At risk for sleep apnea (IMO :44774420 ) Name of Problem: At risk for sleep apnea ; Recorder: SYSTEM, SYSTEM; Confirmation: Confirmed ; Classification: Medical ; Code: 38586413 ; Last Updated: 08/24/2019 10:25 EST ; Life Cycle Date: 08/24/2019 ; Life Cycle Status: Active ; Vocabulary: IMO DM (diabetes mellitus) (SNOMED CT :615411652 ) Name of Problem: DM (diabetes mellitus) ; Recorder: ANGE Green RN; Confirmation: Confirmed ; Classification: Medical ; Code: 012996093 ; Contributor System: PowerChart ; Last Updated: 08/24/2019 10:17 EST ; Life Cycle Date: 08/24/2019 ; Life Cycle Status: Active ; Vocabulary: SNOMED CT HTN (hypertension) (SNOMED CT :0499040993 ) Name of Problem: HTN (hypertension) ; Recorder: ANGE Green RN; Confirmation: Confirmed ; Classification: Medical ; Code: 8766259063 ; Contributor System: PowerChart ; Last Updated: 08/24/2019 10:16 EST ; Life Cycle Date: 08/24/2019 ; Life Cycle Status: Active ; Vocabulary: SNOMED CT Hyperkalemia (SNOMED CT :01851253 ) Name of Problem: Hyperkalemia ; Recorder: Noelle Umanzor Rn; Confirmation: Confirmed ; Classification: Medical ; Code: 19109129 ; Contributor System: PowerChart ; Last Updated: 10/03/2019 10:52 EDT ; Life Cycle Date: 10/03/2019 ; Life Cycle Status: Active ; Vocabulary: SNOMED CT Hyperlipemia (SNOMED CT :04630499 ) Name of Problem: Hyperlipemia ; Recorder: ANGE Green RN; Confirmation: Confirmed ; Classification: Medical ; Code: 36909554 ; Contributor System: PowerChart ; Last Updated: 08/24/2019 10:17 EST ; Life Cycle Date: 08/24/2019 ; Life Cycle Status: Active ; Vocabulary: SNOMED CT Kidney disease (SNOMED CT :111927365 ) Name of Problem: Kidney disease ; Recorder: ANGE Green RN; Confirmation: Confirmed ; Classification: Medical ; Code: 091468641 ; Contributor System: PowerChart ; Last Updated: 08/24/2019 10:17 EST ; Life Cycle Date: 08/24/2019 ; Life Cycle Status: Active ; Vocabulary: SNOMED CT Neuropathy (SNOMED CT :8343056759 ) Name of Problem: Neuropathy ; Recorder: ANGE Green RN; Confirmation: Confirmed ; Classification: Medical ; Code: 9852576629 ; Contributor System: PowerChart ; Last Updated: 08/24/2019 10:18 EST ; Life Cycle Date: 08/24/2019 ; Life Cycle Status: Active ; Vocabulary: SNOMED CT Retinopathy (SNOMED CT :48684608 ) Name of Problem: Retinopathy ; Recorder: Noelle Umanzor Rn; Confirmation: Confirmed ; Classification: Medical ; Code: 16443209 ; Contributor System: Video PassportsChart ; Last Updated: 10/03/2019 10:52 EDT ; Life Cycle Date: 10/03/2019 ; Life Cycle Status: Active ; Vocabulary: SNOMED CT Diagnoses(Active) Dehydration Date: 01/18/2020 ; Diagnosis Type: Reason For Visit ; Confirmation: Complaint of ; Clinical Dx: Dehydration ; Classification: Medical ; Clinical Service: Emergency medicine ; Code: PNED ; Probability: 0 ; Diagnosis Code: [id number] Vomiting Date: 01/18/2020 ; Diagnosis Type: Reason For Visit ; Confirmation: Complaint of ; Clinical Dx: Vomiting ; Classification: Medical ; Clinical Service: Emergency medicine ; Code: PNED ; Probability: 0 ; Diagnosis Code: [id number] ED Height and Weight Height Source : Stated Height Entry Format : [place] Height, Feet : 5 ft(Converted to: 152 cm, 60 Inch) Height, Inches : 5 Inch(Converted to: 0 ft 5 Inch, 12.70 cm) Clinical Height : 165.1 cm Weight Source, ED : Standing scale Weight Entry Format : [place] Weight, Pounds : 230.8 lb Clinical Dosing Weight : 104.91 kg Body Surface Area (BSA) : 2.1 m2 Body Mass Index : 38.5 kg/m2 (HI) [place] Body Weight (IBW) : 56.59 kg MARKIE PANG RN - 01/18/2020 20:31 EDT documented in this encounter Plan of Treatment Not on file documented as of this encounter Visit Diagnoses Not on filedocumented in this encounter
--- OUTSIDE RECORDS SUMMARY | 2024-06-19 08:41 | XMS_ITS | Encounter Summary ---
Author Organization [employer] Address [address] [place] [address] Care Team Providers Care Virtualization Architect Name Role Phone Unavailable Primary Care Provider Unavailabl e Encounter Details Date Type Department Care Team (Late st Contact Info) Description 09/28/2019 Transcribed Document [facility] [place] [address] [place] [address] ProviderLaury MD [address] [place] [address] [phone] Social History Tobacco Use Types Packs/Day Years [...] Policy Numbers : Insurance 1 Health Plan: [facility] Policy Number: [id number] Authorization Number: Insurance Primary Name : [facility] Policy Number: [id number] Authorization Status-Primary : Admit approved Reference Number-Primary : [id number] Authorization Number-Primary : [id number] Number of Days Authorized-Primary : 0 Day(s) [...]
--- OUTSIDE RECORDS SUMMARY | 2024-06-19 08:41 | XMS_ITS | Encounter Summary ---
Author Organization [employer] Address [address] [place] [address] Care Team Providers Care Cable Television Line Technician Name Role Phone Unavailable Primary Care Provider Unavailabl e Encounter Details Date Type Department Care Team (Late st Contact Info) Description 12/24/2018 Transcribed Document [facility] [place] Family Medicine [address] [place] [address] ProviderLaury MD [address] [place] [address] [phone] Social History Tobacco Use Types Packs/Day Years [...] Laury ProviderMD - 12/24/2018 7:19 PM CDT [facility] Emergency Department Depart Summary PERSON INFORMATION Name Crystal Archer Age 28 Years 1990 Sex Female Language PCP Marital Status Phone [id number] Visit Id Visit Reason Specialty Enc Type Emergency Med Service Referred by Track Group [facility] Discharge Tracking Id [id number] Checkout 12/24/2018 15:19:27 Checkin 12/24/2018 15:01:00 Acuity 4 - Non-urgent [facility] Dispo Type Arrival 12/24/2018 15:01:00 Reg Status LOS 000 00:18 Address: [address] [place], [place] [address] [address] POWERFORMS PHYSICIAN NOTES VITALS INFORMATION Vital Sign Triage Temp 98.6 Temp Route Oral/Mouth Pulse Rate 101 Respiratory Rate 20 Blood Pressure 179/ 89 LOCATION INFORMATION Arrival Nurse Unit Room Bed 12/24/2018 15:01:00 [facility] ED Waitroom ([facility]) 12/24/2018 15:04:15 [facility] ED 1 12/24/2018 15:19:27 [facility] ED Checkout ([facility]) MEDICAL INFORMATION Allergy Info: No Known [...]
--- OUTSIDE RECORDS SUMMARY | 2024-06-19 08:41 | XMS_ITS | Encounter Summary ---
Author Organization [employer] In [employer] Address [address] [place] [address] Care Team Providers Care Supervisor Riveting Name Role Phone Unavailable Primary Care Provider Unavailabl e Encounter Details Date Type Department Care Team (Late st Contact Info) Description 07/09/[address] [facility] [address] [facility] [address] [place], [place] [id number] Cb Renee MD [address] [facility] [address] [place] [address] Social History Tobacco Use Types Packs/Day Years [...]
--- OUTSIDE RECORDS SUMMARY | 2024-06-19 08:41 | XMS_ITS | Encounter Summary ---
Author Organization [employer] Address [address] [place] [address] Care Team Providers Care Washateria Attendant Name Role Phone Unavailable Primary Care Provider Unavailabl e Encounter Details Date Type Department Care Team (Late st Contact Info) Description 01/19/2020 Transcribed Document [facility] [place] [address] [place] [address] ProviderLaury MD [address] [place] [address] Social History Tobacco Use Types Packs/Day [...] Conte MD - 01/19/2020 3:30 PM CDT [address] [address] FREDDIE ARCHER :1990 Visit Time:01/19/2020 [...] pharmacies and retail stores. ??? Eat bland, oidb-km-kmrqln foods in small amounts as you are [...] and water are not available, use hand online marketing specialist. Make sure that everyone in your household washes their hands frequently. ??? Take kipx-tai-xfrtnwb and prescription medicines only as told by [...] and water are not available, use hand online marketing specialist. Make sure that everyone in your [...] 07/30/2016 Document Revised: 12/12/2018 Document Reviewed: 12/12/2018 Crowd Play Interactive Patient Education ?? 2020 VeriTran. Hypoglycemia Hypoglycemia occurs when the level of [...] instructions at home: General instructions ??? Take htgh-dlz-udxlzpu and prescription medicines only as told by [...] 07/04/2006 Document Revised: 12/26/2018 Document Reviewed: 08/06/2016 Crowd Play Interactive Patient Education ?? 2020 VeriTran. Emergency Awareness and Preventative Care STROKE is [...] Assistance with quitting is available by contacting 4-631-LTWX-NOW. This is a free resource providing counseling, [...] range between ( 1.0 and 7.0 ) [place] #: 0.73 K/uL -- Normal range between ( 0.24 and 0.82 ) Eos #: 0.24 K/uL -- Normal range between ( 0.04 and 0.54 ) [place] %: 7.3 % -- Normal range between [...] ) Urine Bilirubin Dipstick: Negative Urine Specific [place]: 1.012 -- Normal range between ( 1.005 [...] was given the opportunity to ask questions. Patient/Computer Typesetter Name: Patient/Computer Typesetter Signature: Relationship to Patient: Clinician/Hospital Computer Typesetter Signature: Date: documented in this encounter Plan of Treatment Not on file documented as of this encounter Visit Diagnoses Not on filedocumented in this encounter
--- OUTSIDE RECORDS SUMMARY | 2024-06-19 08:41 | XMS_ITS | Encounter Summary ---
Author Organization [employer] Address [address] [place] [address] Care Team Providers Care Solar Energy Advisor Name Role Phone Unavailable Primary Care Provider Unavailabl e Encounter Details Date Type Department Care Team (Late st Contact Info) Description 01/18/[address] [facility] [place] [address] [place] [address] ProviderLaury MD [address] [place] [id number] Social History Tobacco Use Types Packs/Day Years [...] Laury ProviderMD - 01/18/2020 8:28 PM CDT [place] Suicide Severity Rating Scale (C-SSRS) Entered On: 01/18/2020 21:29 EDT Performed On: 01/18/2020 21:29 EDT by JASON FUENTES RN [place] Suicide Severity Rating Scale (C-SSRS) CSSRS Past [...]
--- OUTSIDE RECORDS SUMMARY | 2024-06-19 08:41 | XMS_ITS | Encounter Summary ---
Author Organization [employer] Address [address] [place] [address] Care Team Providers Care Software Test And Validation Engineer Name Role Phone Unavailable Primary Care Provider Unavailabl e Encounter Details Date Type Department Care Team (Late st Contact Info) Description 11/18/2018 Historic Encounter [address] [address] ProviderJen Historical Social History Tobacco [...] PM EDT) Mucus NONE SEEN NONE, TRACE [facility] Ketones, UA NEGATIVE NEGATIVE [facility] Urobilinogen, UA 0.2 0.2 - 1.0 [facility] SQUAMOUS EPITHELIAL 2-4(A) NONE, 0-2 [facility] Color, UA YELLOW YEL, L. YEL [facility] Amorphous Crystals TRACE NONE, TRACE [facility] Specific [place], UA 1.020 1.005 - 1.030 [facility] Nitrite, UA NEGATIVE NEGATIVE [facility] Crystals, Urine NONE SEEN NONE SEEN [facility] Clarity, UA CLEAR CLEAR, HAZY [facility] Urinalysis, Other NONE SEEN /HPF [facility] Blood, UA 2+ NEGATIVE [facility] Leukocytes, UA NEGATIVE NEGATIVE [facility] Bacteria, UA 2+(A) NONE, TRACE [facility] Glucose, UA NEGATIVE NEGATIVE [facility] pH, UA 5.5(L) 6.0 - 7.5 [facility] RBC, UA 0-2 NONE, 0-2 [facility] Urine Casts NONE SEEN NONE SEEN [facility] Bilirubin, UA NEGATIVE NEGATIVE [facility] Protein, UA 2+(A) NEGATIVE [facility] WBC, UA 0-5 NONE, 0-5 [facility] 11/18/2018 8:[address] [facility] Historical Provider URINE ORDERABLES Final Result Performing Organization Address City/State/[facility] Co de Phone Number [facility] [address] [phone] * Rapid Strep A screen (11/18/2018 8:23 PM EDT) Strep A Ag NEGATIVE NEGATIVE [facility] 11/18/2018 8:[address] [facility] Historical Provider MICROBIOLOGY - GENERAL ORDERABLES Final Result Performing Organization Address City/[facility]/ZIP Co de Phone Number [facility] [address] [phone] documented in this encounter Visit Diagnoses Not on filedocumented in this encounter
--- OUTSIDE RECORDS SUMMARY | 2024-06-19 08:41 | XMS_ITS | Encounter Summary ---
Author Organization [employer] In [employer] Address [address] [place] [address] Care Team Providers Care Technology Adoption Manager Name Role Phone Unavailable Primary Care Provider Unavailabl e Encounter Details Date Type Department Care Team (Late st Contact Info) Description 01/19/2020 Transcribed Document [facility] Family Medicine [address] [place] [address] ProviderLaury MD [address] [place] [address] [phone] Social History Tobacco Use Types Packs/Day Years [...] documented in chart. Surgical history: section x2 (70660664). Dilation and curettage ([id number]). Tubal ligation ([id number]). wisdom teeth. kidney biopsy. EGD. Stomach biopsy. Gastric sleeve ([id number]).. Family history: Not significant, No family history [...] EDT Height Source Stated Height Entry Format [place] Height/Length, SENEGALESE (ft) 5 ft Height/Length SENEGALESE 5 Inch CLINICALHEIGHT 165.1 cm [place] Body Weight 56.59 kg Weight Source, ED Standing scale Weight Entry Format [place] Weight [place] Islander lb 230.8 lb CLINICALWEIGHT 104.91 kg Body [...] 39.0 % Lymph # 3.92 K/uL HI S[place]ent % 7.3 % [place] # 0.73 K/uL Eos % 2.4 % Eos # 0.24 K/uL Baso % 0.4 % Baso # 0.04 K/uL Slide Review No IG# 0 x10(3)/uL IG% 0 % . Notes: Preliminary ReportNAME:FREDDIE ARCHER / SEX:1990 / FemaleMRN / ACC#:[id number] / [id number] ORDERING PHYSICIAN:Ordering Provider, UpdateEXAM REQUESTED:[id number]--KR ABDOMEN & PELVIS W/O CONTRAST [facility]IOLOGIST NAME:MD Ashely[facility] H[facility]ORY:status post gastric sleeve surgery on [...] No rash, no cyanosis, capillary refill brisk MGMT SPECIALIST: Awake alert oriented ??4, nonfocal exam Psych: [...]
--- OUTSIDE RECORDS SUMMARY | 2024-06-19 08:41 | XMS_ITS | Encounter Summary ---
Author Organization [employer] Address [address] [place] [address] Care Team Providers Care Commercial Loan Underwriter Name Role Phone Unavailable Primary Care Provider Unavailabl e Encounter Details Date Type Department Care Team (Late st Contact Info) Description 01/07/2019 Transcribed Document [facility] [place] [address] [place] [address] ProviderLaury MD [address] [place] [address] [phone] Social History Tobacco Use Types Packs/Day Years [...] 3 - Urgent [facility] [employer] [facility] : MG BentonPearl Naqvi 01/07/2019 19:08 EDT ED Visit Reason [...] : No GI 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 : No Beveller Operator Hx : No Heart Attack : No [...]
--- OUTSIDE RECORDS SUMMARY | 2024-06-19 08:41 | XMS_ITS | Encounter Summary ---
Author Organization [employer] Address [address] [place] [address] Care Team Providers Care Content Editor Name Role Phone Unavailable Primary Care Provider Unavailabl e Encounter Details Date Type Department Care Team (Late st Contact Info) Description 01/04/2020 Transcribed Document [facility] [place] [address] [place] [address] ProviderLaury MD [address] [place] [address] Social History Tobacco Use Types Packs/Day [...] Policy Numbers : Insurance 1 Health Plan: [facility] Policy Number: [id number] Authorization Number: [id number] Insurance Primary Name : [facility] Policy Number: [id number] Authorization Status-Primary : Admit approved Reference Number-Primary : [id number] Authorization Number-Primary : [id number] Number of Days Authorized-Primary : 0 Day(s) [...]
--- OUTSIDE RECORDS SUMMARY | 2024-06-19 08:41 | XMS_ITS | Encounter Summary ---
Author Organization [employer] Address [address] [place] [address] Care Team Providers Care Structural Technician Name Role Phone Unavailable Primary Care Provider Unavailabl e Encounter Details Date Type Department Care Team (Late st Contact Info) Description 01/05/2020 Transcribed Document [facility] [place] [address] [place] [address] ProviderLaury MD [address] [place] [address] Social History Tobacco Use Types [...] your book, please call the Center at [phone]. documented in this encounter Plan of Treatment Not on file documented as of this encounter Visit Diagnoses Not on filedocumented in this encounter
--- OUTSIDE RECORDS SUMMARY | 2024-06-19 08:41 | XMS_ITS | Encounter Summary ---
Author Organization [employer] Address [address] [place] [address] Care Team Providers Care Trim Machine Operator Name Role Phone Unavailable Primary Care Provider Unavailabl e Encounter Details Date Type Department Care Team (Late st Contact Info) Description 09/26/2018 Transcribed Document [facility] [place] [address] [place] [address] ProviderLaury MD [address] [place] [address] 429151 Social History Tobacco Use Types Packs/Day Years [...] Laury ProviderMD - 09/26/2018 10:56 PM CDT [facility] ADDRESS [place], [place] [phone] Name:Crystal Archer Visit Date:09/26/2018 16:44:00 Emergency Department Care Providers: Physician: INDIO PEREA Physician: Our doctors and staff appreciate your choice of [facility] for your emergency medical care. Read these instructions carefully. Please call us if you have any questions about your medical problem. [facility] Emergency Department [phone] [facility] Emergency Department [phone] [facility] Emergency Department [phone] Patient Education Materials Crystal Archer has been [...] 07/04/2006 Document Revised: 12/09/2016 Document Reviewed: 03/04/2014 ElseIronGate Interactive Patient Education ? 2017 [employer]. FOLLOW UP CARE Most conditions that [...] x-ray department to pick them up o [facility] # [phone] o [facility] # [phone] o [facility] # [phone] ?? If you had cultures done and [...] quit. o National Network of Tobacco Cessation NGmxfxfwn7-767-PGWP-NOW o [employer] Lung Association o Palestinian Heart Association [phone] o Sai/Manuel Mccray [phone] FINANCIAL INFORMATION ?? [facility] provides financial counseling to anyone who requests our services. ?? Emergency Physicians are independently contracted to provide your care. You will receive a bill for the care provided to you by the Physician and/or the Physician Vending Machine Repairer. This will be a separate bill from [...] as recommended Patient Signature / or Patient Cylinder Head Assembler Provider Signature Date Date/Time 09/26/2018 18:56 Saint [...] oral tablet loratadine 10 mg oral capsule Springer 5 mg-325 mg oral tablet sodium bicarbonate [...]
--- OUTSIDE RECORDS SUMMARY | 2024-06-19 08:41 | XMS_ITS | Encounter Summary ---
Author Organization [employer] In [employer] Address [address] [place] [address] Care Team Providers Care An Employee Sponsor Or Advocate And Name Role Phone Unavailable Primary Care Provider Unavailabl e Encounter Details Date Type Department Care Team (Late st Contact Info) Description 01/04/2020 Abstract [facility] [address] [place] [address] Xavi Mejia MD [address] [facility] [address] [place] [address] Social History Tobacco Use Types Packs/Day Years [...]
--- OUTSIDE RECORDS SUMMARY | 2024-06-19 08:41 | XMS_ITS | Encounter Summary ---
Author Organization [employer] In [employer] Address [address] [place] [address] Care Team Providers Care Studio Operation Engineer Name Role Phone Unavailable Primary Care Provider Unavailabl e Encounter Details Date Type Department Care Team (Late st Contact Info) Description 09/26/2018 Transcribed Document [facility] [place] [address] [place] [address] ProviderLaury MD [address] [place] [address] [phone] Social History Tobacco Use Types Packs/Day Years [...] Laury ProviderMD - 09/26/2018 10:56 PM CDT [facility] Emergency Department Depart Summary PERSON INFORMATION Name Crystal Archer Age 28 Years 1990 Sex Female Language PCP Marital Status Phone [id number] Visit Id Visit Reason Specialty Enc Type Emergency Med Service Referred by Track Group [facility] Discharge Tracking Id [id number] Checkout 09/26/2018 18:56:15 Checkin 09/26/2018 16:44:00 Acuity 3 - Urgent [facility] Dispo Type Arrival 09/26/2018 16:44:00 Reg Status LOS 000 02:12 Address: [address] [place] [address] [place] [facility] [place] [address] POWERFORMS PHYSICIAN NOTES VITALS INFORMATION Vital Sign Triage Temp 98.7 Temp Route Oral/Mouth Pulse Rate 102 Respiratory Rate 20 Blood Pressure 140/ 72 LOCATION INFORMATION Arrival Nurse Unit Room Bed 09/26/2018 16:44:00 [facility] ED Waitroom ([facility]) 09/26/2018 16:50:17 [facility] ED 3 09/26/2018 18:56:15 [facility] ED Checkout ([facility]) MEDICAL INFORMATION Allergy Info: No Known Allergies PATIENT EDUCATION INFORMATION Instructions: Hematuria, Adult Follow up: With: Address: When: Follow up with primary care provider Within 5 to 7 days DIAGNOSIS documented in this encounter Plan of Treatment Not on file documented as of this encounter Visit Diagnoses Not on filedocumented in this encounter
--- OUTSIDE RECORDS SUMMARY | 2024-06-19 08:41 | XMS_ITS | Encounter Summary ---
Author Organization [employer] Address [address] [place] [address] Care Team Providers Care Paper Baler Name Role Phone Unavailable Primary Care Provider Unavailabl e Encounter Details Date Type Department Care Team (Late st Contact Info) Description 12/24/2018 Transcribed Document [facility] Family Medicine [address] [place] [address] ProviderLaury MD [address] [place] [address] [phone] Social History Tobacco Use Types Packs/Day Years [...] Laury ProviderMD - 12/24/2018 7:19 PM CDT [facility] ADDRESS [place], [place] [phone] Name:Crystal Archer Visit Date:12/24/2018 15:01:00 Emergency Department Care Providers: Physician: MEGHA MAN Physician: Our doctors and staff appreciate your choice of [facility] for your emergency medical care. Read these instructions carefully. Please call us if you have any questions about your medical problem. [facility] Emergency Department [phone] [facility] Emergency Department [phone] [facility] Emergency Department [phone] Patient Education Materials Crystal Archersil has been [...] Medicines may be prescribed or be available ertc-yeu-hiitvge. The medicines may be: ??? Taken by mouth (orally). ??? Applied as a cream. Follow these instructions at home: ??? Take or apply tqeh-pqc-xkqpyep and prescription medicines only as told by [...] 03/21/2012 Document Revised: 02/27/2017 Document Reviewed: 01/05/2016 Converser Interactive Patient Education ? 2019 Con[employer] Inc. FOLLOW UP CARE Most conditions that [...] them up o [facility] # [phone] [facility] # [phone] o [facility] # [phone] ?? If you had cultures done and [...] quit. o National Network of Tobacco Cessation HNhvjiljw5-686-YUWP-NOW o [employer]ian Lung Association o Malian Heart Association [phone] o Sai/Manuel Mccray [phone] FINANCIAL INFORMATION ?? [facility] provides financial counseling to anyone who requests our services. ?? Emergency Physicians are independently contracted to provide your care. You will receive a bill for the care provided to you by the Physician and/or the Physician Recruitment Manager. This will be a separate bill [...] the Emergency Department. Patient Visit Summary Crystal Arcehr has been given the following list of [...] as recommended Patient Signature / or Patient Belting Inspector Provider Signature Date Date/Time 12/24/2018 15:19 Saint [...]
--- OUTSIDE RECORDS SUMMARY | 2024-06-19 08:41 | XMS_ITS | Encounter Summary ---
Author Organization [employer] Address [address] [place] [address] Care Team Providers Care Advanced Manager Name Role Phone Unavailable Primary Care Provider Unavailabl e Encounter Details Date Type Department Care Team (Late st Contact Info) Description 01/18/2020 Transcribed Document [facility] [place] [address] [place] [address] ProviderLaury MD [address] [place] [address] [phone] Social History Tobacco Use Types Packs/Day Years [...] Communication Barrier : None Primary Language : Singaporean Any Spiritual/Cultural Needs or Requests : No [...]
--- OUTSIDE RECORDS SUMMARY | 2024-06-19 08:41 | XMS_ITS | Encounter Summary ---
Author Organization [employer] Address [address] [place] [address] Care Team Providers Care Forging Press Setter Up Name Role Phone Unavailable Primary Care Provider Unavailabl e Encounter Details Date Type Department Care Team (Late st Contact Info) Description 01/08/2019 Transcribed Document [facility] [place] Medicine [address] [place] [address] ProviderLaury MD [address] [place] [address] [phone] Social History Tobacco Use Types Packs/Day Years [...] Conte MD - 01/08/2019 12:31 AM CDT [facility] ADDRESS [place], [place] [phone] Name:Crystal Archer Visit Date:01/07/2019 18:52:00 Emergency Department Care Providers: Physician: Physician: Our doctors and staff appreciate your choice of [facility] for your emergency medical care. Read these instructions carefully. Please call us if you have any questions about your medical problem. [facility] Emergency Department [phone] [facility] Emergency Department [phone] [facility] Emergency Department [phone] Patient Education Materials Crystal Archer has been [...] x-ray department to pick them up o [facility] # [phone] o [facility] # [phone] o [facility] # [phone] ?? If you had cultures done and [...] quit. o National Network of Tobacco Cessation FFpoujait3-233-FGIS-NOW o Bhut[employer] Lung Association o Bhutanese Heart Association [phone] o Sai/Manuel Mahendra [phone] FINANCIAL INFORMATION ?? [facility] provides financial counseling to anyone who requests our services. ?? Emergency Physicians are independently contracted to provide your care. You will receive a bill for the care provided to you by the Physician and/or the Physician Photovoltaic Power Systems Engineer. This will be a separate bill from [...] as recommended Patient Signature / or Patient Market Specialist Provider Signature Date documented in this encounter Plan of Treatment Not on file documented as of this encounter Visit Diagnoses Not on filedocumented in this encounter
--- OUTSIDE RECORDS SUMMARY | 2024-06-19 08:41 | XMS_ITS | Encounter Summary ---
Author Organization [employer] Address [address] [place] [address] Care Team Providers Care Die Assembler Name Role Phone Unavailable Primary Care Provider Unavailabl e Encounter Details Date Type Department Care Team (Late st Contact Info) Description 12/24/2018 Transcribed Document [facility] [place] [address] [place] [address] ProviderLaury MD [address] [place] [address] [phone] Social History Tobacco Use Types Packs/Day Years [...] - Non-urgent [facility] : BBK IndependenceMaddi Parker - 12/24/2018 15:05 EDT ED Visit Reason : Rash Primary Care Provider : Rema Ferreira, Chief Nursing Executive Accompanied By : Family/Spouse/SO Arrival Mode : [...] : No GI 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 : No Passenger Service Representative Hx : No Heart Attack : No [...] Source : Stated Height Entry Format : [place] Height, Inches : 65 Inch(Converted to: 5 ft 5 Inch, 165.10 cm) Clinical Height : 165.1 cm Weight Source : Bed scale Weight Entry Format : [place] Weight, Pounds : 221 lb Clinical Dosing Weight : 100.45 kg Body Surface Area-(BSA) : 2.15 m2 Body Mass Index : 36.9 kg/m2 (HI) [place] Body Weight : 57 kg Maddi Tomlin [...]
--- OUTSIDE RECORDS SUMMARY | 2024-06-19 08:41 | XMS_ITS | Encounter Summary ---
Author Organization [employer] Address [address] [place] [address] Care Team Providers Care Senior Teradata Developer Name Role Phone Unavailable Primary Care Provider Unavailabl e Encounter Details Date Type Department Care Team (Late st Contact Info) Description 01/19/2020 Transcribed Document [facility] [place] [address] [place] [address] ProviderLaury MD [address] [place] [address] [phone] Social History Tobacco Use Types Packs/Day Years [...]
--- OUTSIDE RECORDS SUMMARY | 2024-06-19 08:41 | XMS_ITS | Encounter Summary ---
Author Organization [employer] Address [address] [place] [address] Care Team Providers Care Industrial Garage Servicer Name Role Phone Unavailable Primary Care Provider Unavailabl e Encounter Details Date Type Department Care Team (Late st Contact Info) Description 01/19/[address] [facility] [place] [address] [place] [address] ProviderLaury MD [address] [place] [address] [phone] Social History Tobacco Use Types Packs/Day Years [...] On: 01/19/2020 8:59 EDT by CRISTOBAL HANSEN RN-Aging Department Supervisor Readmission Questionnaire Patient Status at Discharge, [...] Was Readm Preventable : No CRISTOBAL HANSEN, RN-Aging Department Supervisor - 01/19/2020 8:59 EDT documented in this encounter Plan of Treatment Not on file documented as of this encounter Visit Diagnoses Not on filedocumented in this encounter
--- OUTSIDE RECORDS SUMMARY | 2024-06-19 08:41 | XMS_ITS | Encounter Summary ---
Author Organization [employer] In [employer] Address [address] [place] [address] Care Team Providers Care Dock Or Pier Laborer Name Role Phone Unavailable Primary Care Provider Unavailabl e Encounter Details Date Type Department Care Team (Late st Contact Info) Description 10/31/2018 Transcribed Document [facility] Family Medicine [address] [place] [address] ProviderLaury MD [address] [place] [address] [phone] Social History Tobacco Use Types Packs/Day Years [...] Laury ProviderMD - 10/31/2018 1:17 AM CDT [facility] ADDRESS [place], [place] [phone] Name:Crystal Archer Visit Date:10/30/2018 20:23:00 Emergency Department Care Providers: Physician: MEGHA MAN Physician: Our doctors and staff appreciate your choice of [facility] for your emergency medical care. Read these instructions carefully. Please call us if you have any questions about your medical problem. [facility] Emergency Department [phone] [facility] Emergency Department [phone] [facility] Emergency Department [phone] Patient Education Materials Crystal Archersil has been [...] 10/19/2011 Document Revised: 11/11/2016 Document Reviewed: 06/30/2015 Nextnav Interactive Patient Education ? 2017 Nextnav Inc. FOLLOW UP CARE Most conditions that [...] them up o [facility] # [phone] o [facility] # [phone] o [facility] # [phone] ?? If you had cultures done and [...] quit. o National Network of Tobacco Cessation [id number]-JIHZ-NOW o [place] [employer] o [place] [employer] [phone] o Sai/Manuel Mccray [phone] FINANCIAL INFORMATION ?? [facility] provides financial counseling to anyone who requests our services. ?? Emergency Physicians are independently contracted to provide your care. You will receive a bill for the care provided to you by the Physician and/or the Physician Rand Tacker. This will be a separate bill from [...] as recommended Patient Signature / or Patient Quality And Reliability Engineer Provider Signature Date Date/Time 10/30/2018 21:17 Saint [...] Dose Frequency amLODIPine 2.5 mg oral tablet [place] 5 mg-325 mg oral tablet Comment: This [...]
--- OUTSIDE RECORDS SUMMARY | 2024-06-19 08:41 | XMS_ITS | Encounter Summary ---
Author Organization [employer] In [employer] Address [address] [place] [address] Care Team Providers Care Railway Equipment Operator Name Role Phone Unavailable Primary Care Provider Unavailabl e Encounter Details Date Type Department Care Team (Late st Contact Info) Description 11/19/2018 Transcribed Document [facility] [address] [place] [address] ProviderLaury MD [address] [place] [address] [phone] Social History Tobacco Use Types Packs/Day Years [...] Laury ProviderMD - 11/19/2018 1:52 AM CDT [facility] Emergency Department Depart Summary PERSON INFORMATION Name Crystal Archer Age 28 Years 1990 Sex Female Language PCP Marital Status Phone [id number] Visit Id Visit Reason Specialty Enc Type Emergency Med Service Referred by Track Group [facility] Discharge Tracking Id [id number] Checkout 11/18/2018 21:52:54 Checkin 11/18/2018 20:06:00 Acuity 4 - Non-urgent [facility] Dispo Type Arrival 11/18/2018 20:06:00 Reg Status LOS 000 01:46 Address: [address] [place], [place] [address]T [place] [address] POWERFORMS PHYSICIAN NOTES VITALS INFORMATION Vital Sign Triage Temp 99.0 Temp Route Oral/Mouth Pulse Rate 107 Respiratory Rate 18 Blood Pressure 147/ 87 LOCATION INFORMATION Arrival Nurse Unit Room Bed 11/18/2018 20:06:00 [facility] ED Waitroom ([facility]) 11/18/2018 20:10:40 [facility] ED 8 11/18/2018 21:33:06 [facility] ED STA-3 11/18/2018 21:52:54 [facility] ED Checkout ([facility]) MEDICAL INFORMATION Allergy Info: No Known Allergies PATIENT EDUCATION INFORMATION Instructions: Urinary Tract Infection, Adult, Omhe-vw-Dehc; Otitis Media, Adult, Ceej-vp-Thad Follow up: With: Address: When: Follow up with primary care provider Within 1-2 days With: Address: When: Return to Emergency Department Within As needed DIAGNOSIS documented in this encounter Plan of Treatment Not on file documented as of this encounter Visit Diagnoses Not on filedocumented in this encounter
--- OUTSIDE RECORDS SUMMARY | 2024-06-19 08:41 | XMS_ITS | Encounter Summary ---
Author Organization [employer] In [employer] Address [address] [place] [address] Care Team Providers Care Gasoline Tester Name Role Phone Unavailable Primary Care Provider Unavailabl e Encounter Details Date Type Department Care Team (Late st Contact Info) Description 01/19/2020 Transcribed Document [facility] [place] [place] [address] [place] [address] ProviderLaury MD [address] [place] [address] [phone] Social History Tobacco Use Types Packs/Day Years [...] pharmacies and retail stores. ??? Eat bland, qjas-mm-llpjxq foods in small amounts as you are [...] and water are not available, use hand scrap sorter. Make sure that everyone in your household washes their hands frequently. ??? Take ooct-sxm-zpauthn and prescription medicines only as told by [...] and water are not available, use hand scrap sorter. Make sure that everyone in your household [...] 07/30/2016 Document Revised: 12/12/2018 Document Reviewed: 12/12/2018 Hippocrates Gate Interactive Patient Education ? 2020 [employer] Gate Inc. Endocrinology Hypoglycemia Hypoglycemia occurs when the [...] instructions at home: General instructions ??? Take fnvk-pgi-orihhcm and prescription medicines only as told by [...] 07/04/2006 Document Revised: 12/26/2018 Document Reviewed: 08/06/2016 ElseRevver Interactive Patient Education ? 2020 [employer]. documented in this encounter Plan of Treatment Not on file documented as of this encounter Visit Diagnoses Not on filedocumented in this encounter
--- OUTSIDE RECORDS SUMMARY | 2024-06-19 08:41 | XMS_ITS | Encounter Summary ---
Author Organization [employer] In [employer] Address [address] [place] [address] Care Team Providers Care Director Of Distance Learning Name Role Phone Unavailable Primary Care Provider Unavailabl e Encounter Details Date Type Department Care Team (Late st Contact Info) Description 12/24/2018 Transcribed Document [facility] Family Medicine [address] [place] [address] ProviderLaury MD [address] [place] [address] [phone] Social History Tobacco Use Types Packs/Day Years [...] Laury ProviderMD - 12/24/2018 7:19 PM CDT [facility] ADDRESS [place], [place] [phone] Name:Crystal Archer Visit Date:12/24/2018 15:01:00 Emergency Department Care Providers: Physician: MEGHA MNA Physician: Our doctors and staff appreciate your choice of [facility] for your emergency medical care. Read these instructions carefully. Please call us if you have any questions about your medical problem. [facility] Emergency Department [phone] [facility] Emergency Department [phone] [facility] Emergency Department [phone] Patient Education Materials Crystal Archersil has been [...] Medicines may be prescribed or be available kpqh-cqy-obidcft. The medicines may be: ??? Taken by mouth (orally). ??? Applied as a cream. Follow these instructions at home: ??? Take or apply bjgs-yac-jcbdavz and prescription medicines only as told by [...] 03/21/2012 Document Revised: 02/27/2017 Document Reviewed: 01/05/2016 Intent Media Interactive Patient Education ? 2019 Intent Media Inc. FOLLOW UP CARE Most conditions that [...] x-ray department to pick them up o [facility] # [phone] o [facility] # [phone] o # [phone] ?? If you had cultures done and [...] quit. o National Network of Tobacco Cessation [id number]-UJWY-NOW o [employer] [employer] Association o [place] Heart Association [phone] o Sai/Manuel Mccray [phone] FINANCIAL INFORMATION ?? [facility] provides financial counseling to anyone who requests our services. ?? Emergency Physicians are independently contracted to provide your care. You will receive a bill for the care provided to you by the Physician and/or the Physician Process Safety Engineering Technologist. This will be a separate bill from [...] as recommended Patient Signature / or Patient Car Attendant Provider Signature Date Electronically signed by Interface, [facility] Conversion Poultry Pinner Cerner at 10/19/2022 11:23 AM CDT documented in this encounter Plan of Treatment Not on file documented as of this encounter Visit Diagnoses Not on filedocumented in this encounter
--- OUTSIDE RECORDS SUMMARY | 2024-06-19 08:41 | XMS_ITS | Encounter Summary ---
Author Organization [employer] In i[employer] Address [address] [place] [address] Care Team Providers Care Form Stripper Name Role Phone Unavailable Primary Care Provider Unavailabl e Encounter Details Date Type Department Care Team (Late st Contact Info) Description 01/04/2020 Transcribed Document [facility] Family Medicine [address] [place] [address] ProviderLaury MD [address] [place] [address] [id number] Social History Tobacco Use Types Packs/Day Years [...] Dr. Hoskins and Dr. Mejia reviewed labs SOMAR MCGRATH RN - 01/04/2020 9:08 EDT Electronically signed by [facility] Conversion Cover Cutter Machine Cerner at 11/02/2022 10:09 AM CDT documented in this encounter Plan of Treatment Not on file documented as of this encounter Visit Diagnoses Not on filedocumented in this encounter
--- OUTSIDE RECORDS SUMMARY | 2024-06-19 08:41 | XMS_ITS | Encounter Summary ---
Author Organization [employer] In [employer] Address [address] [place] [address] Care Team Providers Care Card Sorter Name Role Phone Unavailable Primary Care Provider Unavailabl e Encounter Details Date Type Department Care Team (Late st Contact Info) Description 09/26/2018 Transcribed Document [facility] [place] Family Medicine [address] [place] [address] ProviderLaury MD [address] [place] [address] 835651 Social History Tobacco Use Types Packs/Day Years [...] Laury ProviderMD - 09/26/2018 10:56 PM CDT [facility] ADDRESS [place], [place] [phone] Name:Crystal Archer Visit Date:09/26/2018 16:44:00 Emergency Department Care Providers: Physician: INDIO PEREA Physician: Our doctors and staff appreciate your choice of [facility] for your emergency medical care. Read these instructions carefully. Please call us if you have any questions about your medical problem. [facility] Emergency Department [phone] [facility] Emergency Department [phone] [facility] Emergency Department [phone] Patient Education Materials Crystal Archer has been [...] 07/04/2006 Document Revised: 12/09/2016 Document Reviewed: 03/04/2014 ElseSilverado Interactive Patient Education ? 2017 Element Financial Corporation Inc. FOLLOW UP CARE Most conditions that [...] to pick them up o [facility] # [phone] o [facility] # [phone] o [facility] # [phone] ?? If you had cultures done and [...] quit. o National Network of Tobacco Cessation UGuakekms5-715-GGQW-NOW o [place] [employer] o [place] Heart [employer] [phone] o Sai/Manuel Mccray [phone] FINANCIAL INFORMATION ?? [facility] provides financial counseling to anyone who requests our services. ?? Emergency Physicians are independently contracted to provide your care. You will receive a bill for the care provided to you by the Physician and/or the Physician Jeweler Apprentice. This will be a separate bill from [...] recommended Patient Signature / or Patient Clinical Documentation Improvement Specialist Provider Signature Date Electronically signed by Zuleyka Byrd Conversion Powerhouse Electrician Apprentice Cerner at 10/19/2022 11:22 AM CDT documented in this encounter Plan of Treatment Not on file documented as of this encounter Visit Diagnoses Not on filedocumented in this encounter
--- OUTSIDE RECORDS SUMMARY | 2024-06-19 08:41 | XMS_ITS | Encounter Summary ---
Author Organization [employer] In [employer] Address [address] [place] [address] Care Team Providers Care Keno Clerk Name Role Phone Unavailable Primary Care Provider Unavailabl e Encounter Details Date Type Department Care Team (Late st Contact Info) Description 01/08/2019 Transcribed Document [facility] Family Medicine [address] [place] [address] ProviderLaury MD [address] [place] [address] [phone] Social History Tobacco Use Types Packs/Day Years [...] Conte MD - 01/08/2019 12:31 AM CDT [facility] ADDRESS [place], [place] [phone] Name:Crystal Archer Visit Date:01/07/2019 18:52:00 Emergency Department Care Providers: Physician: Physician: Our doctors and staff appreciate your choice of [facility] for your emergency medical care. Read these instructions carefully. Please call us if you have any questions about your medical problem. [facility] Emergency Department [phone] [facility] Emergency Department [phone] [facility] Emergency Department [phone] Patient Education Materials Crystal Archer has been [...] x-ray department to pick them up o [facility] # [phone] o [facility] # [phone] o [facility] # [phone] ?? If you had cultures done and [...] quit. o National Network of Tobacco Cessation JXkowougk1-000-VNFM-NOW o [place] [employer] Association o [place] Heart Association [phone] o Sai/Manuel Mccray [phone] FINANCIAL INFORMATION ?? [facility] provides financial counseling to anyone who requests our services. ?? Emergency Physicians are independently contracted to provide your care. You will receive a bill for the care provided to you by the Physician and/or the Physician Tier Over. This will be a separate bill from [...] recommended Patient Signature / or Patient Mold Sheet Cleaner Provider Signature Date Date/Time 01/07/2019 20:31 Saint [...]
--- OUTSIDE RECORDS SUMMARY | 2024-06-19 08:41 | XMS_ITS | Encounter Summary ---
Author Organization [employer] In [employer] Address [address] [place] [address] Care Team Providers Care Motion Picture Projectionist Name Role Phone Unavailable Primary Care Provider Unavailabl e Encounter Details Date Type Department Care Team (Late st Contact Info) Description 01/05/2020 Transcribed Document [facility] [place] Family Medicine [address] [place] [address] ProviderLaury MD [address] [place] [address] [phone] Social History Tobacco Use Types Packs/Day Years [...] On: 01/05/2020 8:27 EDT by CRISTOBAL HANSEN, RN-Library Cataloging Technician Initial Assessment I Previously Documented Living Environment [...] have PCP Listed? : Yes CRISTOBAL HANSEN RN-Library Cataloging Technician - 01/05/2020 8:27 EDT Initial Assessment II [...] iADLs. Plan is to return home at ne, no services needed..................sds CRISTOBAL HANSEN RN-Library Cataloging Technician - 01/05/2020 8:27 EDT documented in this encounter Plan of Treatment Not on file documented as of this encounter Visit Diagnoses Not on filedocumented in this encounter
--- OUTSIDE RECORDS SUMMARY | 2024-06-19 08:41 | XMS_ITS | Encounter Summary ---
Author Organization [employer] In [employer]atives Address [address] [place] [address] Care Team Providers Care Supervisor Inspection Name Role Phone Unavailable Primary Care Provider Unavailabl e Encounter Details Date Type Department Care Team (Late st Contact Info) Description 01/19/2020 Transcribed Document [facility] [place] Family Medicine [address] [place] [address] ProviderLaury MD [address] [place] [address] [phone] Social History Tobacco Use Types Packs/Day Years [...] EDT Electronically signed by Zuleyka Byrd Conversion Retail Assistant Store Manager Cerner at 11/02/2022 10:04 AM CDT documented in this encounter Plan of Treatment Not on file documented as of this encounter Visit Diagnoses Not on filedocumented in this encounter
--- OUTSIDE RECORDS SUMMARY | 2024-06-19 08:41 | XMS_ITS | Encounter Summary ---
Author Organization [employer] In iat[employer]AMED Address [address] [place] [address] Care Team Providers Care Senior Director Of Strategy Name Role Phone Unavailable Primary Care Provider Unavailabl e Encounter Details Date Type Department Care Team (Late st Contact Info) Description 10/31/2018 Transcribed Document [facility] [place] Family Medicine [address] [place] [address] ProviderLaury MD [address] [place] [address] [phone] Social History Tobacco Use Types Packs/Day Years [...] CDT [facility] ADDRESS [place], [place] [phone] Name:Crystal Archer Visit Date:10/30/2018 20:23:00 Emergency Department Care Providers: Physician: MEGHA MAN Physician: Our doctors and staff appreciate your choice of [facility] for your emergency medical care. Read these instructions carefully. Please call us if you have any questions about your medical problem. [facility] Emergency Department [phone] [facility] Emergency Department [phone] [facility] Emergency Department [phone] Patient Education Materials Crystal Archersil has been [...] 10/19/2011 Document Revised: 11/11/2016 Document Reviewed: 06/30/2015 Ready Solar Interactive Patient Education ? 2017 Ready Solar Inc. FOLLOW UP CARE Most conditions that [...] x-ray department to pick them up o [facility] # [phone] o [facility] # [phone] o [facility] # [phone] ?? If you had cultures done and [...] quit. o National Network of Tobacco Cessation [id number]-YKSS-NOW o [employer] Lung Association o [employer] Heart Association [phone] o Sai/Manuel Mccray [phone] FINANCIAL INFORMATION ?? [facility] provides financial counseling to anyone who requests our services. ?? Emergency Physicians are independently contracted to provide your care. You will receive a bill for the care provided to you by the Physician and/or the Physician Ic Engineer. This will be a separate bill [...] as recommended Patient Signature / or Patient Academic Affairs Assistant Provider Signature Date documented in this encounter Plan of Treatment Not on file documented as of this encounter Visit Diagnoses Not on filedocumented in this encounter
--- OUTSIDE RECORDS SUMMARY | 2024-06-19 08:41 | XMS_ITS | Encounter Summary ---
Author Organization [employer] In [employer] Address [address] [address] Care Team Providers Care Technical Solution Architect Name Role Phone Unavailable Primary Care Provider Unavailabl e Encounter Details Date Type Department Care Team (Late st Contact Info) Description 09/07/2018 Transcribed Document [facility] [place] [address] [place] [address] ProviderLaury MD [address] [place] [address] [phone] Social History Tobacco Use Types Packs/Day Years [...] - Laury ProviderMD - 09/07/2018 9:31 PM BIOFUELS PLANT CONSTRUCTION WORKER [facility] ADDRESS [place], [place] [phone] Name:Crystal Archer Visit Date:09/07/2018 15:20:00 Emergency Department Care Providers: Physician: MEGHA MAN Physician: Our doctors and staff appreciate your choice of [facility] for your emergency medical care. Read these instructions carefully. Please call us if you have any questions about your medical problem. [facility] Emergency Department [phone] [facility] Emergency Department [phone] [facility] Emergency Department [phone] Patient Education Materials Crytsal Archer Karen has been given the following [...] 12/15/2006 Document Revised: 03/06/2017 Document Reviewed: 12/11/2014 ElseAutobutler Interactive Patient Education ? 2017 [employer] Inc. FOLLOW UP CARE Most conditions that [...] to pick them up o [facility] # [phone] o [facility] # [phone] o [facility] # [phone] ?? If you had cultures done and [...] quit. o National Network of Tobacco Cessation [id number]-NOW o [place] [employer] Association o [employer] Heart Association [phone] o Sai/Manuel Mccray [phone] FINANCIAL INFORMATION ?? [facility] provides financial counseling to anyone who requests our services. ?? Emergency Physicians are independently contracted to provide your care. You will receive a bill for the care provided to you by the Physician and/or the Physician Gas Main Fitter Helper. This will be a separate bill [...] as recommended Patient Signature / or Patient Cloth Tearer Provider Signature Date Date/Time 09/07/2018 16:31 Saint [...] oral tablet loratadine 10 mg oral capsule [place] 5 mg-325 mg oral tablet sodium bicarbonate [...]
--- OUTSIDE RECORDS SUMMARY | 2024-06-19 08:41 | XMS_ITS | Encounter Summary ---
Author Organization [employer] In [employer] Address [address] [place] [address] Care Team Providers Care Glass Unloading Equipment Tender Name Role Phone Unavailable Primary Care Provider Unavailabl e Encounter Details Date Type Department Care Team (Late st Contact Info) Description 01/05/2020 Transcribed Document [facility] [place] Family Medicine [address] [place] [address] ProviderLaury MD [address] [place] [address] [phone] Social History Tobacco Use Types Packs/Day Years [...]
--- OUTSIDE RECORDS SUMMARY | 2024-06-19 08:41 | XMS_ITS | Encounter Summary ---
Author Organization [employer] In [employer] Address [address] [place] [address] Care Team Providers Care Custom Bow Maker Name Role Phone Unavailable Primary Care Provider Unavailabl e Encounter Details Date Type Department Care Team (Late st Contact Info) Description 04/25/2019 Abstract [facility] [address] [address] [place], [place] [phone] Cb Renee MD [address] [place] [address] Social History Tobacco Use Types Packs/Day Years [...]
--- OUTSIDE RECORDS SUMMARY | 2024-06-19 08:41 | XMS_ITS | Encounter Summary ---
Author Organization [employer] In [employer] Address [address] [place] [address] Care Team Providers Care Document Review Attorney Name Role Phone Unavailable Primary Care Provider Unavailabl e Encounter Details Date Type Department Care Team (Late st Contact Info) Description 08/24/2019 Transcribed Document [facility] [place] [address] [place] [address] ProviderLaury MD [address] [place] [address] Social History Tobacco Use Types Packs/Day [...] - Laury ProviderMD - 08/24/2019 2:30 PM DEBONE SUPERVISOR [facility] Endo PreOp Summary Primary Physician: LARRY MARTINES MD-BRANDEE Finalized Date/Time: 08/24/19 10:30:24 Pt. Name: FREDDIE ARCHER /Sex: 1990 Female Med Rec #: [id number] Physician: LARRY MARTINES MD-BRANDEE Financial #: [id number] Pt. Type: O Room/Bed: [facility] Admit/Disch: 08/24/19 09:42:00 - Institution: [facility] PreOp Case Times Entry 1 In Preop 08/24/19 10:06:00 Ready for Holding n/a Room Patient Ready for 08/24/19 10:30:00 Surgery Patient Out of Preop 08/24/19 10:30:00 Patient Out of n/a Holding Room [facility] End[facility] PreOp Case Times Audit 08/24/19 10:30:23 Paint Line Supervisor: CECILEGiacomo Modifier: HOLMESTJ <+> 1 Patient Out of Preop <+> 1 Patient Ready for Surgery Finalized By: ANGE Green RN Document Signatures Signed By: ANGE Green RN 08/24/19 10:30 Electronically signed by Zuleyka Byrd Conversion Liaison Inspection Laboratory Assistant Cerner at 11/02/2022 10:00 AM CDT documented in this encounter Plan of Treatment Not on file documented as of this encounter Visit Diagnoses Not on filedocumented in this encounter
--- OUTSIDE RECORDS SUMMARY | 2024-06-19 08:41 | XMS_ITS | Encounter Summary ---
Author Organization [employer] Address [address] [place] [address] Care Team Providers Care Chaser Tar Name Role Phone Unavailable Primary Care Provider Unavailabl e Encounter Details Date Type Department Care Team (Late st Contact Info) Description 11/19/[address] [facility] [place] [address] [place] [address] ProviderLaury MD [address] [place] [address] [id number] Social History Tobacco Use Types Packs/Day Years [...] Laury ProviderMD - 11/19/2018 1:52 AM CDT [facility] ADDRESS [place], [place] [phone] Name:Crystal Archer Visit Date:11/18/2018 20:06:00 Emergency Department Care Providers: Physician: Clara Elias Phys Asst Physician: Our doctors and staff appreciate your choice of [facility] for your emergency medical care. Read these instructions carefully. Please call us if you have any questions about your medical problem. [facility] Emergency Department [phone] [facility] Emergency Department [phone] [facility] Emergency Department [phone] Patient Education Materials Gianni Crystal Jones has [...] start to feel better. ??? Only take mxfm-mgf-xfspjip or prescription medicines for pain, discomfort, or [...] 12/20/2008 Document Revised: 12/09/2016 Document Reviewed: 01/29/2014 ElseCollaaj Interactive Patient Education ? 2017 [employer] Obstetrics and Gynecology Urinary Tract Infection, Adult Introduction A urinary tract infection (UTI) is an infection of any part of the urinary tract. The urinary tract includes the: ??? Kidneys. ??? Ureters. ??? Bladder. ??? Urethra. These organs make, store, and get rid of pee (urine) in the body. Follow these instructions at home: ??? Take yzmk-jvl-yhpjhkw and prescription medicines only as told by [...] them up o [facility] # [phone] o [facility] # [phone] o [facility] # [phone] ?? If you had cultures done and [...] quit. o National Network of Tobacco Cessation [id number]-[id number]-NOW o [place] [employer] Association o [place] Heart Association [phone] o Sai/Manuel Mccray [phone] FINANCIAL INFORMATION ?? [facility] provides financial counseling to anyone who requests our services. ?? Emergency Physicians are independently contracted to provide your care. You will receive a bill for the care provided to you by the Physician and/or the Physician Printing Engineer. This will be a separate bill [...] Patient Education Materials: ENT Otitis Media, Adult, Wxgk-zz-Argd Obstetrics and Gynecology Urinary Tract Infection, Adult, Jcje-qz-Yxeu Follow-Up Instructions: Follow Up With: Where: When: [...] as recommended Patient Signature / or Patient Extrusion Press Operator Provider Signature Date documented in this encounter Plan of Treatment Not on file documented as of this encounter Visit Diagnoses Not on filedocumented in this encounter
--- OUTSIDE RECORDS SUMMARY | 2024-06-19 08:41 | XMS_ITS | Encounter Summary ---
Author Organization [employer] In [employer] Address [address] [place] [address] Care Team Providers Care Policy Writer Typist Name Role Phone Unavailable Primary Care Provider Unavailabl e Encounter Details Date Type Department Care Team (Late st Contact Info) Description 09/26/2018 Historic Encounter [address] [address] ProviderJen Historical Social History Tobacco [...] PM EDT) MCHC 32.7 32.2 - 35.5 [facility] % Monos 5.6 4.7 - 12.5 % [facility] Hemoglobin 10.1(L) 11.2 - 15.7 [facility] RDW 12.2 11.7 - 14.4 % [facility] % Eos 3.9 0.7 - 5.8 % [facility] Hematocrit 30.9(L) 34.1 - 44.9 % [facility] Platelets 212 182 - 369 [facility] % Baso 0.2 0.1 - 1.2 % [facility] MCV 87 79 - 95 [facility] % Neutros 59.5 34.0 - 71.1 [facility] Immature Granulocytes-Re lative 0.3 0.0 - 0.5 % [facility] WBC 10.4(H) 4.0 - 10.0 [facility] MCH 28.5 25.6 - 32.2 pg [facility] % Lymphs 30.5 19.3 - 51.7 % [facility] RBC 3.54(L) 3.93 - 5.22 [facility] 09/26/2018 5:27 PM EDT us Sle Historical Provider LAB BLOOD ORDERABLES Fi nal Result [facility] [address] [id number] [phone] * (ABNORMAL) Basic Metabolic Panel (09/26/2018 5:27 PM EDT) Calcium 8.4(L) 8.5 - 10.1 mg/dL [facility] Sodium 136 136 - 145 mMole/Lite r [facility] Potassium 4.0 3.5 - 5.1 mMole/Lite r [facility] Glucose 172(H) 74 - 99 [facility] Chloride 100 98 - 107 mMole/Lite r [facility] Creatinine 3.56(H) 0.55 - 1.02 mg/dL [facility] BUN 48(H) 7 - 18 mg/dL [facility] CO2 26 21 - 32 mMole/Lite r [facility] eGFR Non (mL/min/1.73m2) 15.1(L) >60 [facility] 09/26/2018 5:27 PM EDT [facility] Provider LAB BLOOD ORDERABLES Fi nal Result [facility] [address] [phone] * HCG Urine POC (09/26/2018 4:49 PM EDT) Specific [place], UA 1.010 1.005 - 1.030 [facility] POC, URINE HCG NEGATIVE [facility] 09/26/2018 4:49 PM EDT Result [facility] Provider POINT OF CARE TEST ORDE RABLES Final Result Performing Organization Address City/[facility]/ZIP Co de Phone Number [facility] [address] [phone] * (ABNORMAL) Urinalysis, Reflex Microscopic and Culture If Indicated (09/26/2018 4:49 PM EDT) Blood, UA 1+ NEGATIVE [facility] Leukocytes, UA NEGATIVE NEGATIVE [facility] Mucus TRACE NONE, TRACE [facility] Glucose, UA TRACE NEGATIVE [facility] pH, UA 6.5 6.0 - 7.5 [facility] SQUAMOUS EPITHELIAL 0-2 NONE, 0-2 [facility] Bilirubin, UA NEGATIVE NEGATIVE [facility] Urinalysis, Other NONE SEEN /HPF [facility] Protein, UA 2+(A) NEGATIVE [facility] Crystals, Urine NONE SEEN NONE SEEN [facility] WBC, UA 0-5 NONE, 0-5 [facility] Urine Casts NONE SEEN NONE SEEN [facility] Ketones, UA NEGATIVE NEGATIVE [facility] Urobilinogen, UA 0.2 0.2 - 1.0 [facility] Bacteria, UA 1+(A) NONE, TRACE [facility] Color, UA LIGHT YELLOW YEL, L. YEL [facility] Specific [place], UA 1.010 1.005 - 1.030 [facility] RBC, UA 5-10(A) NONE, 0-2 [facility] Nitrite, UA NEGATIVE NEGATIVE [facility] Amorphous Crystals TRACE NONE, TRACE [facility] Clarity, UA CLEAR CLEAR, HAZY [facility] 09/26/2018 4:49 PM EDT [facility] Historical Provider URINE ORDERABLES Final Result [facility] [address] [phone] documented in this encounter Visit Diagnoses Not on filedocumented in this encounter
--- OUTSIDE RECORDS SUMMARY | 2024-06-19 08:41 | XMS_ITS | Encounter Summary ---
Author Organization [employer] Address [address] [place] [address] Care Team Providers Care Route Service Manager Name Role Phone Unavailable Primary Care Provider Unavailabl e Encounter Details Date Type Department Care Team (Late st Contact Info) Description 01/19/2020 Transcribed Document [facility] [place] [address] [place] [address] ProviderLaury MD [address] [place] [id number] Social History Tobacco Use Types Packs/Day Years [...]
--- OUTSIDE RECORDS SUMMARY | 2024-06-19 08:41 | XMS_ITS | Encounter Summary ---
Author Organization [employer] In [employer] Address [address] [place] [address] Care Team Providers Care Technical Marketing Engineer Name Role Phone Unavailable Primary Care Provider Unavailabl e Encounter Details Date Type Department Care Team (Late st Contact Info) Description 01/04/2020 Transcribed Document [facility] [place] [address] [place] [address] ProviderLaury MD [address] [place], [place] [id number] Social History Tobacco Use Types Packs/Day Years [...] - 01/04/2020 19:04 EDT Electronically signed by Christopher Byrd Conversion Paper Making Machine Operator Cerner at 11/02/2022 10:03 AM CDT documented in this encounter Plan of Treatment Not on file documented as of this encounter Visit Diagnoses Not on filedocumented in this encounter
--- OUTSIDE RECORDS SUMMARY | 2024-06-19 08:41 | XMS_ITS | Encounter Summary ---
Author Organization [employer] In [employer] Address [address] [place] [address] Care Team Providers Care Store Person Name Role Phone Unavailable Primary Care Provider Unavailabl e Encounter Details Date Type Department Care Team (Late st Contact Info) Description 10/31/2018 Transcribed Document [facility] [place] [address] [place] [address] ProviderLaury MD [address] [place] [address] [id number] Social History Tobacco Use Types Packs/Day Years [...] Laury ProviderMD - 10/31/2018 1:17 AM CDT [facility] [place] [facility] Emergency Department Depart Summary PERSON INFORMATION Name Crystal Archer Age 28 Years 1990 Sex Female Language PCP Marital Status Phone [id number] Visit Id Visit Reason Specialty Enc Type Emergency Med Service Referred by [facility] Discharge Tracking Id [id number] Checkout 10/30/2018 21:17:02 Checkin 10/30/2018 20:23:00 Acuity 4 - Non-urgent [facility] Dispo Type Arrival 10/30/2018 20:23:00 Reg Status LOS 000 00:54 Address: [address] [place], [place] [address]T [facility] [address] POWERFORMS PHYSICIAN NOTES VITALS INFORMATION Vital Sign Triage Temp 99 Temp Route Oral/Mouth Pulse Rate 92 Respiratory Rate 22 Blood Pressure 169/ 99 LOCATION INFORMATION Arrival Nurse Unit Room Bed 10/30/2018 20:23:00 [facility] ED Waitroom ([facility]) 10/30/2018 20:35:06 [facility] ED 9 10/30/2018 21:17:02 [facility] ED Checkout ([facility]) MEDICAL INFORMATION Allergy Info: No Known [...]
--- OUTSIDE RECORDS SUMMARY | 2024-06-19 08:41 | XMS_ITS | Encounter Summary ---
Author Organization [employer] Address [address] [place] [address] Care Team Providers Care Administrative Support Clerk Name Role Phone Unavailable Primary Care Provider Unavailabl e Encounter Details Date Type Department Care Team (Late st Contact Info) Description 11/19/2018 Transcribed Document [facility] [place] [address] [place] [address] ProviderLaury MD [address] [place] [address] [id number] Social History Tobacco Use Types Packs/Day Years [...] Laury ProviderMD - 11/19/2018 1:52 AM CDT [facility] ADDRESS [place], [place] [phone] Name:Crystal Archer Visit Date:11/18/2018 20:06:00 Emergency Department Care Providers: Physician: Clara Elias Phys Asst Physician: Our doctors and staff appreciate your choice of [facility] for your emergency medical care. Read these instructions carefully. Please call us if you have any questions about your medical problem. [facility] [place] Emergency Department [phone] [facility] Emergency Department [phone] [facility] Emergency Department [phone] Patient Education Materials Gianni Crystal Jones has [...] start to feel better. ??? Only take sieg-ija-nmfbpyz or prescription medicines for pain, discomfort, or [...] 12/20/2008 Document Revised: 12/09/2016 Document Reviewed: 01/29/2014 Else[employer] Interactive Patient Education ? 2017 [employer] Obstetrics and Gynecology Urinary Tract Infection, Adult Introduction A urinary tract infection (UTI) is an infection of any part of the urinary tract. The urinary tract includes the: ??? Kidneys. ??? Ureters. ??? Bladder. ??? Urethra. These organs make, store, and get rid of pee (urine) in the body. Follow these instructions at home: ??? Take pzlb-bcj-qcmrfnm and prescription medicines only as told by [...] to pick them up o [facility] [place] # [phone] o [facility] # [phone] o [facility] # [phone] ?? If you had cultures done and [...] quit. o National Network of Tobacco Cessation [id number]-NOW o [place] Lung Association o [employer] Heart Association [phone] o Sai/Manuel Mccray [phone] FINANCIAL INFORMATION ?? [facility] provides financial counseling to anyone who requests our services. ?? Emergency Physicians are independently contracted to provide your care. You will receive a bill for the care provided to you by the Physician and/or the Physician Environmental Air Specialist. This will be a separate bill [...] Patient Education Materials: ENT Otitis Media, Adult, Ogjp-al-Rkmm Obstetrics and Gynecology Urinary Tract Infection, Adult, Ukfc-wr-Ykpb Follow-Up Instructions: Follow Up With: Where: When: [...] as recommended Patient Signature / or Patient Inseam Leveler Provider Signature Date Date/Time 11/18/2018 21:52 Saint [...] Date Electronically signed by Zuleyka Byrd Conversion Environmental Services Assistant Keysha at 10/19/2022 11:23 AM CDT documented in this encounter Plan of Treatment Not on file documented as of this encounter Visit Diagnoses Not on filedocumented in this encounter
--- OUTSIDE RECORDS SUMMARY | 2024-06-19 08:41 | XMS_ITS | Encounter Summary ---
Author Organization [employer] In [employer]atives Address [address] [place] [address] Care Team Providers Care Hand Counter Name Role Phone Unavailable Primary Care Provider Unavailabl e Encounter Details Date Type Department Care Team (Late st Contact Info) Description 12/28/2019 Transcribed Document [facility] [place] [address] [place] [address] ProviderLaury MD [address] [place] [address] [id number] Social History Tobacco Use Types Packs/Day Years [...] Numbers : Insurance 1 Health Plan: [employer] Policy Number: [id number] Authorization Number: Insurance Primary Name : [employer] Policy Number: [id number] Authorization Status-Primary : Admit approved Reference Number-Primary : [id number] Authorization Number-Primary : [id number] Number of Days Authorized-Primary : 0 Day(s) [...]
--- OUTSIDE RECORDS SUMMARY | 2024-06-19 08:41 | XMS_ITS | Encounter Summary ---
Author Organization [employer] In [employer] Address [address] [place] [address] Care Team Providers Care Sizer Hand Name Role Phone Unavailable Primary Care Provider Unavailabl e Encounter Details Date Type Department Care Team (Late st Contact Info) Description 10/31/2018 Transcribed Document [facility] [place] [address] [place] [address] ProviderLaury MD [address] [place] [address] [id number] Social History Tobacco Use Types Packs/Day Years [...] Complaint Primary Care Provider : Rema Ferreira, It Program Manager Accompanied By : Family/Spouse/SO Arrival Mode : [...] : No GI 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 : No Mayonnaise Mixer Hx : No Heart Attack : No [...] Preferred Communication Mode : Verbal Languages : Colombian Child/Parent Domestic Concerns : None Threats of Suicide : No Jasen summer10/30/2018 20:29 EDT Height and Weight Height Source : Stated Height Entry Format : [place] Height, Inches : 65 Inch(Converted to: 5 ft 5 Inch, 165.10 cm) Clinical Height : 165.1 cm Weight Source : Stated Type of Weight Measurement Est : [place] Weight, est lb : 214 lb Estimated Clinical Dosing Weight : 97.27 kg [place] Body Weight : 57 kg Body Surface [...] ; Status: Processing ; Ordered As Mnemonic: [place] 5 mg-325 mg oral tablet ; Simple [...]
--- OUTSIDE RECORDS SUMMARY | 2024-06-19 08:42 | XMS_ITS | Encounter Summary ---
Author Organization [employer] Address [address] [place] [address] Care Team Providers Care Political Theory Professor Name Role Phone Unavailable Primary Care Provider Unavailabl e Encounter Details Date Type Department Care Team (Late st Contact Info) Description 08/03/2018 Transcribed Document [facility] [place] [address] [place] [address] ProviderLaury MD [address] [place] [address] [id number] Social History Tobacco Use Types Packs/Day Years [...] - Laury ProviderMD - 08/03/2018 7:32 PM ORTHOPEDIC CAST SPECIALIST [facility] ADDRESS [place], [place] [phone] Name:Crystal Archer Visit Date:08/03/2018 13:52:00 Emergency Department Care Providers: Physician: MEGHA MAN Physician: Our doctors and staff appreciate your choice of [facility] for your emergency medical care. Read these instructions carefully. Please call us if you have any questions about your medical problem. Emergency Department [phone] [facility] Emergency Department [phone] [facility] Emergency Department [phone] Patient Education Materials Crystal Archersil has been [...] x-ray department to pick them up o # [phone] o [facility] # [phone] o [facility] # [phone] ?? If you had cultures done and [...] quit. o National Network of Tobacco Cessation [id number]-LJWY-NOW o [place] Lung Association o [place] Heart Association [phone] o Sai/Manuel Mahendra [phone] FINANCIAL INFORMATION ?? [facility] provides financial counseling to anyone who requests our services. ?? Emergency Physicians are independently contracted to provide your care. You will receive a bill for the care provided to you by the Physician and/or the Physician [employer] Special Education Teacher. This will be a separate bill [...] as recommended Patient Signature / or Patient Radiologic Technology Teacher Provider Signature Date Date/Time 08/03/2018 14:32 [facility] [...]
--- OUTSIDE RECORDS SUMMARY | 2024-06-19 08:42 | XMS_ITS | Encounter Summary ---
Author Organization [email or web address] Address [address] [place] [address] Care Team Providers Care Trade Union Secretary Name Role Phone Unavailable Primary Care Provider Unavailabl e Encounter Details Date Type Department Care Team (Late st Contact Info) Description 09/07/2018 Transcribed Document [facility] [place] [address] [place] [address] ProviderLaury MD [address] [place] [address] [id number] Social History Tobacco Use Types Packs/Day Years [...] - Laury ProviderMD - 09/07/2018 9:31 PM PELLET MACHINE OPERATOR [facility] ADDRESS [place], [place] [phone] Name:Crystal Archer Visit Date:09/07/2018 15:20:00 Emergency Department Care Providers: Physician: MEGHA MAN Physician: Our doctors and staff appreciate your choice of [facility] for your emergency medical care. Read these instructions carefully. Please call us if you have any questions about your medical problem. [facility] Emergency Department [phone] [facility] Emergency Department [phone] [facility] Emergency Department [phone] Patient Education Materials Crystal Archer Karen has [...] 12/15/2006 Document Revised: 03/06/2017 Document Reviewed: 12/11/2014 ElseL'Idealist Interactive Patient Education ? 2017 [employer] FOLLOW UP CARE Most conditions that [...] up o [facility] # [phone] o [facility] # [phone] o [facility] [place] [facility] # [phone] ?? If you had cultures done and [...] quit. o National Network of Tobacco Cessation YTubmcxyb7-389-ZVIW-NOW o [place] Lung Association o [place] Heart Association [phone] o Sai/Manuel Mccray [phone] FINANCIAL INFORMATION ?? [facility] provides financial counseling to anyone who requests our services. ?? Emergency Physicians are independently contracted to provide your care. You will receive a bill for the care provided to you by the Physician and/or the Physician Hoister. This will be a separate bill from [...] as recommended Patient Signature / or Patient Lamp Tester And Inspector Provider Signature Date documented in this encounter Plan of Treatment Not on file documented as of this encounter Visit Diagnoses Not on filedocumented in this encounter
--- OUTSIDE RECORDS SUMMARY | 2024-06-19 08:42 | XMS_ITS | Encounter Summary ---
Author Organization [facility] [place] Address [address] [place] [address] Care Team Providers Care Contact Acid Plant Operator Helper Name Role Phone Jaquan Conley MD Primary Care Provider [phone] Encounter Details Date Type Department Care Team (Late st Contact Info) Description 06/26/2021 11:50 AM EST Lab [facility] [address] [place] [address] Urinary tract infection without hematuria, [...] AM EST Performed at: ??01 - [facility] [address] ??[id number] Abrasive Grader Helper: Jacob Whaley PhD, Phone: ??[phone] us Mare Kapoor WINDSHIELD REPAIR TECHNICIAN MICROBIOLOGY - GENERAL ORDERABL ES Final Result [facility] [address] [place] [address], documented in this encounter Visit Diagnoses Diagnosis Urinary tract infection without hematuria, site unspecified documented in this encounter Care Teams Contact Acid Plant Operator Helper Relationship Specialty Start Date End Date Jaquan Conley MD [address] [place] [address] PCP - General Internal Medicine 04/23/20 02/14/23 documented as of this encounter
--- OUTSIDE RECORDS SUMMARY | 2024-06-19 08:42 | XMS_ITS | Encounter Summary ---
Author Organization [facility] Address [address] [place] [address] Care Team Providers Care Grease Worker Name Role Phone Jaquan Conley MD Primary Care Provider [phone] Encounter Details Date Type Department Care Team (Late st Contact Info) Description 05/11/2021 12:00 PM EDT Lab [facility] [address] [place] [address] Anemia, unspecified type; Chronic kidney [...] Seen, 0-2 /HPF 05/11/2021 7:05 PM EDT [facility] WBC, UA Too Numerous to Count(A) None Seen, 0-2 /HPF 05/11/2021 7:05 PM EDT [facility] Bacteria, UA 4+(A) None Seen /HPF 05/11/2021 7:05 PM EDT [facility] Squamous Epithelial Cells, UA 3-6(A) None Seen, 0-2 /HPF 05/11/2021 7:05 PM EDT [facility] Hyaline Casts, UA 0-2 None Seen /LPF 05/11/2021 7:05 PM EDT [facility] Methodology Manual Light Microscopy 05/11/2021 7:05 PM EDT [facility] Urine Urine specimen collection, clean catch / Unknown Collection / Unknown 05/11/2021 12:16 PM EDT 05/11/2021 12:22 PM EDT Mare Kapoor APRN URINE ORDERABLES Final Result [facility]
[address] [place] [address], [place] [phone] * (ABNORMAL) Urinalysis without microscopic (no culture) - Urine, Clean Catch (05/11/2021 12:16 PM EDT) Color, UA Yellow Yellow, Straw 05/11/2021 6:28 PM EDT [facility] Appearance, UA Cloudy(A) Clear 05/11/2021 6:28 PM EDT [facility] pH, UA 6.0 5.0 - 8.0 05/11/2021 6:28 PM EDT [facility] Specific [place], UA 1.013 1.005 - 1.030 05/11/2021 6:28 PM EDT [facility] Glucose, UA Negative Negative 05/11/2021 6:28 PM EDT [facility] Ketones, UA Negative Negative 05/11/2021 6:28 PM EDT [facility] Bilirubin, UA Negative Negative 05/11/2021 6:28 PM EDT [facility] Blood, UA Moderate (2+)(A) Negative 05/11/2021 6:28 PM EDT [facility] Protein, UA 100 mg/dL (2+)(A) Negative 05/11/2021 6:28 PM EDT [facility] Leuk Esterase, UA Large (3+)(A) Negative 05/11/2021 6:28 PM EDT [facility] Nitrite, UA Positive(A) Negative 05/11/2021 6:28 PM EDT [facility] Urobilinogen, UA 0.2 E.U./dL 0.2 - 1.0 E.U./dL 05/11/2021 6:28 PM EDT [facility] Urine Urine specimen collection, clean catch / Unknown Collection / Unknown 05/11/2021 12:16 PM EDT 05/11/2021 12:22 PM EDT Mare Kapoor YOUTH SERVICES SPECIALIST URINE ORDERABLES Final Result [facility]
[address] [place] [address], * (ABNORMAL) CBC Auto Differential (05/11/2021 12:16 PM EDT) WBC 6.65 3.40 - 10.80 10*3/mm3 05/11/2021 6:42 PM EDT [facility] RBC 4.02 3.77 - 5.28 10*6/mm3 05/11/2021 6:42 PM EDT [facility] Hemoglobin 12.4 12.0 - 15.9 g/dL 05/11/2021 6:42 PM EDT [facility] Hematocrit 37.6 34.0 - 46.6 % 05/11/2021 6:42 PM EDT [facility] MCV 93.5 79.0 - 97.0 fL 05/11/2021 6:42 PM EDT [facility] MCH 30.8 26.6 - 33.0 pg 05/11/2021 6:42 PM EDT [facility] MCHC 33.0 31.5 - 35.7 g/dL 05/11/2021 6:42 PM EDT [facility] RDW 12.0(L) 12.3 - 15.4 % 05/11/2021 6:42 PM EDT [facility] RDW-SD 41.4 37.0 - 54.0 fl 05/11/2021 6:42 PM EDT [facility] MPV 14.4(H) 6.0 - 12.0 fL 05/11/2021 6:42 PM EDT [facility] Platelets 137(L) 140 - 450 10*3/mm3 05/11/2021 6:42 PM EDT [facility] Neutrophil % 52.8 42.7 - 76.0 % 05/11/2021 6:42 PM EDT [facility] Lymphocyte % 38.2 19.6 - 45.3 % 05/11/2021 6:42 PM EDT [facility] Monocyte % 5.0 5.0 - 12.0 % 05/11/2021 6:42 PM EDT [facility] Eosinophil % 3.3 0.3 - 6.2 % 05/11/2021 6:42 PM EDT [facility] Basophil % 0.5 0.0 - 1.5 % 05/11/2021 6:42 PM EDT [facility] Neutrophils, Absolute 3.52 1.70 - 7.00 10*3/mm3 05/11/2021 6:42 PM EDT [facility] Lymphocytes, Absolute 2.54 0.70 - 3.10 10*3/mm3 05/11/2021 6:42 PM EDT [facility] Monocytes, Absolute 0.33 0.10 - 0.90 10*3/mm3 05/11/2021 6:42 PM EDT [facility] Eosinophils, Absolute 0.22 0.00 - 0.40 10*3/mm3 05/11/2021 6:42 PM EDT [facility] Basophils, Absolute 0.03 0.00 - 0.20 10*3/mm3 05/11/2021 6:42 PM EDT [facility] Blood Venipuncture / Unknown 05/11/2021 12:16 PM EDT 05/11/2021 12:23 PM EDT us Mare Kapoor YOUTH SERVICES SPECIALIST LAB BLOOD ORDERABLES Final Resu lt [facility]
[address] [place] [address], * Vitamin D 25 Hydroxy (05/11/2021 12:16 PM EDT) 25 Hydroxy, Vitamin D 23.8 ng/ml 05/11/2021 7:17 PM EDT [facility] Blood Venipuncture / Unknown 05/11/2021 12:16 PM EDT 05/11/2021 12:23 PM EDT Narrative [facility] - 05/11/2021 7:17 PM EDT Reference Range for Total Vitamin D 25(OH) Deficiency <20.0 ng/mL Insufficiency 21-29 ng/mL Sufficiency 30-100 ng/mL Toxicity >100 ng/ml Results may be falsely increased if patient taking Biotin. Mare Kapoor YOUTH SERVICES SPECIALIST LAB BLOOD ORDERABLES Final Resu lt [facility]
[address] [place] [address], * (ABNORMAL) Renal Function Panel (05/11/2021 12:16 PM EDT) [facility] Glucose 98 65 - 99 mg/dL 05/11/2021 7:49 PM EDT [facility] BUN 43(H) 6 - 20 mg/dL 05/11/2021 7:49 PM EDT [facility] Creatinine 3.74(H) 0.57 - 1.00 mg/dL 05/11/2021 7:49 PM EDT [facility] Sodium 144 136 - 145 mmol/L 05/11/2021 7:49 PM EDT [facility] Potassium 5.0 3.5 - 5.2 mmol/L 05/11/2021 7:49 PM EDT [facility] Chloride 111(H) 98 - 107 mmol/L 05/11/2021 7:49 PM EDT [facility] CO2 19.2(L) 22.0 - 29.0 mmol/L 05/11/2021 7:49 PM EDT [facility] Calcium 8.5(L) 8.6 - 10.5 mg/dL 05/11/2021 7:49 PM EDT [facility] Albumin 3.50 3.50 - 5.20 g/dL 05/11/2021 7:49 PM EDT [facility] Phosphorus 5.2(H) 2.5 - 4.5 mg/dL 05/11/2021 7:49 PM EDT [facility] Anion Gap 13.8 5.0 - 15.0 mmol/L 05/11/2021 7:49 PM EDT [facility] BUN/Creatinine Ratio 11.5 7.0 - 25.0 05/11/2021 7:49 PM EDT [facility] eGFR Non Amer 14(L) >60 mL/min/1.7 3 05/11/2021 7:49 PM EDT [facility] Comment:<15 Indicative of ki dney failure. eGFR Amer 05/11/2021 7:49 PM EDT [facility] Comment:<15 Indicative of ki dney failure. Blood Venipuncture / Unknown 05/11/2021 12:16 PM EDT 05/11/2021 12:23 PM EDT Narrative [facility] - 05/11/2021 7:49 PM EDT GFR Normal >60 Chronic Kidney Disease <60 Kidney Failure <15 Mare Kapoor YOUTH SERVICES SPECIALIST LAB BLOOD ORDERABLES Final Resu lt [facility]
[address] [place] [address], * Protein, Urine, Random - Urine, Clean Catch (05/11/2021 12:16 PM EDT) Total Protein, Urine 116.0 mg/dL 05/11/2021 7:17 PM EDT [facility] Urine Urine specimen collection, clean catch / Unknown Collection / Unknown 05/11/2021 12:16 PM EDT 05/11/2021 12:22 PM EDT [facility] - 05/11/2021 7:17 PM EDT Reference intervals for random urine have not been established. Clinical usage is dependent upon physician's interpretation in combination with other laboratory tests. us Mare Claunch YOUTH SERVICES SPECIALIST URINE ORDERABLES Final Result Performing Organization Address [facility] Co de Phone Number [facility]
[address] [place] [address], * Creatinine, Urine, Random - Urine, Clean Catch (05/11/2021 12:16 PM EDT) Creatinine, Urine 72.6 mg/dL 05/11/2021 7:17 PM EDT [facility] Urine Urine specimen collection, clean catch / Unknown Collection / Unknown 05/11/2021 12:16 PM EDT 05/11/2021 12:22 PM EDT [facility] - 05/11/2021 7:17 PM EDT Reference intervals for random urine have not been established. Clinical usage is dependent upon physician's interpretation in combination with other laboratory tests. us Mare Kapoor YOUTH SERVICES SPECIALIST URINE ORDERABLES Final Result Performing Organization Address [facility] de Phone Number [facility]
[address] [place] [address], * (ABNORMAL) PTH, Intact (05/11/2021 12:15 PM EDT) PTH, Intact 286.0(H) 15.0 - 65.0 pg/mL 05/11/2021 7:07 PM EDT [facility] Blood Venipuncture / Unknown 05/11/2021 12:15 PM EDT 05/11/2021 12:23 PM EDT [facility] - 05/11/2021 7:07 PM EDT Results may be falsely decreased if patient taking Biotin. us Mare Kapoor YOUTH SERVICES SPECIALIST LAB BLOOD ORDERABLES Final Resu lt [facility]
[address] [place] [address], [place] [phone] documented in this encounter Visit Diagnoses Diagnosis Anemia, unspecified type Chronic kidney disease, stage IV (severe) Chronic kidney disease, Stage IV (severe) Vitamin D deficiency documented in this encounter Care Teams Grease Worker Relationship Specialty Start Date End Date Jaquan Conley MD [address] [place] [address] PCP - General Internal Medicine 04/23/20 02/14/23 documented as of this encounter
--- OUTSIDE RECORDS SUMMARY | 2024-06-19 08:42 | XMS_ITS | Encounter Summary ---
Author Organization [facility] Address [address] [place] [id number] Care Team Providers Care Fashion Photographer Name Role Phone Maria A Soria CABINET MOUNTER Primary Care Provider [phone] Reason for Visit * Reason Onset Date Comments FYI 03/16/2023 Encounter Details Date Type Department Care Team (Late st Contact Info) Description 03/16/2023 Telephone [facility] [address] [place] [phone] Maria A Soria, CABINET MOUNTER [address] [place], [place] [address] I Social History Tobacco Use Types Packs/Day [...] Archer Relationship: Self Best call back number: [phone] What was the call regarding: PATIENT STATES THAT SHE HAD THE C-DIFF TEST AND TURNED IT IN TO [facility] documented in this encounter Plan of Treatment Not on file documented as of this encounter Visit Diagnoses Not on filedocumented in this encounter Additional Health Concerns Infection Onset Date Last Indicated Resolved Time C.difficile (rule out) 03/15/2023 03/16/202303/20 9:08 PM EDT documented as of this encounter Care Teams Fashion Photographer Relationship Specialty Start Date End Date Maria A Soria APRN [address] [place] [address] PCP - General Family Medicine 02/15/23 documented as of this encounter
--- OUTSIDE RECORDS SUMMARY | 2024-06-19 08:42 | XMS_ITS | Encounter Summary ---
Author Organization [facility] Address [address] [place] [address] Care Team Providers Care Compounder Helper Name Role Phone Maria A Soria APRN Primary Care Provider [phone] Encounter Details Date Type Department Care Team [...] on filedocumented in this encounter Care Teams Compounder Helper Relationship Specialty Start Date End Date Maria A Soria APRN [address] [place] [address] PCP - General Family Medicine 02/15/23 documented as of this encounter
--- OUTSIDE RECORDS SUMMARY | 2024-06-19 08:42 | XMS_ITS | Encounter Summary ---
Author Organization [facility] Address [address] [place] [address] Care Team Providers Care Human Resource Management Instructor Name Role Phone Unavailable Primary Care Provider Unavailabl e Encounter Details Date Type Department Care Team (Late st Contact Info) Description 08/03/2018 Historic Encounter [facility] [address] [place] [address] Alan Cline DO [address] [facility] Dept[facility] [place] [address] Social History Tobacco Use Types Packs/Day Years [...] PM EST) Urinalysis, Other NONE SEEN /HPF [facility] Crystals, Urine NONE SEEN NONE SEEN [facility] Ketones, UA NEGATIVE NEGATIVE [facility] Urobilinogen, UA 0.2 0.2 - 1.0 [facility] Color, UA LIGHT YELLOW YEL, L. YEL [facility] Urine Casts NONE SEEN NONE SEEN [facility] RBC, UA 0-2 NONE, 0-2 [facility] Specific [place], UA 1.020 1.005 - 1.030 [facility] Nitrite, UA NEGATIVE NEGATIVE [facility] SQUAMOUS EPITHELIAL 0-2 NONE, 0-2 [facility] Clarity, UA CLEAR CLEAR, HAZY [facility] Amorphous Crystals TRACE NONE, TRACE [facility] Blood, UA TRACE-LYSED NEGATIVE [facility] Leukocytes, UA NEGATIVE NEGATIVE [facility] Bacteria, UA TRACE NONE, TRACE [facility] Glucose, UA TRACE NEGATIVE [facility] pH, UA 7.0 6.0 - 7.5 [facility] WBC, UA 0-5 NONE, 0-5 [facility] Bilirubin, UA NEGATIVE NEGATIVE [facility] Mucus 1+(A) NONE, TRACE [facility] Protein, UA 2+(A) NEGATIVE [facility] 08/03/2018 1:56 PM EST us Alan Cline DO URINE ORDERABLES Final Result [facility] [address] [phone] * HCG Urine POC (08/03/2018 1:56 PM EST) POC, URINE HCG NEGATIVE [facility] Specific [place], UA 1.020 1.005 - 1.030 [facility] 08/03/2018 1:56 PM EST Alan Cline DO POINT OF CARE TEST ORDERABLES Final Result Performing Organization Address City/State/[facility] Co de Phone Number [facility] [address] [phone] documented in this encounter Visit Diagnoses Not on filedocumented in this encounter
--- OUTSIDE RECORDS SUMMARY | 2024-06-19 08:42 | XMS_ITS | Encounter Summary ---
Author Organization [facility] Address [address] [place] [id number] Care Team Providers Care Lap Layer Name Role Phone Maria A Soria TEST EVALUATOR Primary Care Provider [phone] Reason for Visit * Reason Comments Establish Care Encounter Details Date Type Department Care Team (Late st Contact Info) Description 02/15/2023 11:00 AM EDT Office Visit [facility] [address] [place] [phone] Maria A Soria, ANJU [address] [place] [address] Essential hypertension (Primary Dx); ESRD [...] 6 days/week. Working towards renal transplant with [facility]. To pursue transplant services at [facility] as well but finances are making [...] followed by a PCP in [facility], but finds it difficult to continue to [...] She is followed by [facility]. 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 No pertinent family [...] 6 days/week. Working towards renal transplant with [facility]. To pursue transplant services at [facility] as well but finances are making [...] AM EDT 03/16/2023 Comment:Blood Release to bhavin Ablerts [facility]) - 03/16/2023 9:07 AM EDT Performed at: ??01 - [facility] [address] ??[id number] Slurry Worker: Jacob Whaley PhD, Phone: ??[phone] us Maria A Soria APRN LAB BLOOD ORDERABLES Final Result [facility] [address] [place] [address], [place] [phone] [facility] [address] [place] [address], * (ABNORMAL) Comprehensive Metabolic Panel (03/15/2023 10:03 [...] 9:07 AM EDT Performed at: ??01 - [facility] [address] [place], [place] ??[id number] Slurry Worker: Jacob Whaley PhD, Phone: ??[phone] Maria A Soria TEST EVALUATOR LAB BLOOD ORDERABLES Final Result [facility] ([facility]) [address] [place] [address], [facility] [address] [place] [address], * (ABNORMAL) CBC & Differential (03/15/2023 10:03 [...] 10:03 AM EDT 03/16/2023 Comment:Blood Release to [facility] ([facility]) - 03/16/2023 9:07 AM EDT Performed at: ??01 - [facility] [address] ??[id number] Slurry Worker: Jacob Whaley PhD, Phone: ??[phone] Maria A Soria APRN LAB BLOOD ORDERABLES Final Result Performing Organization Address City/[facility]/ZIP Co de Phone Number [facility] ([facility]) [address] [place] [address], [place] [phone] [facility] [address] [place] [address], [place] [phone] * (ABNORMAL) Lipid Panel (03/15/2023 10:03 AM [...] 10:03 AM EDT 03/16/2023 Comment:Blood Release to [facility]) - 03/16/2023 9:07 AM EDT Performed at: ??01 - [facility] [address] ??[id number] Slurry Worker: Jacob Whaley PhD, Phone: ??[phone] Maria A Soria APRN LAB BLOOD ORDERABLES Final Result Performing Organization Address City/[facility]/ZIP Co de Phone Number [facility] ([facility]) [address] [place] [address], [facility] [address] [place] [address], * (ABNORMAL) Hemoglobin A1c (03/15/2023 10:03 AM EDT) Hemoglobin A1C 5.9(H) 4.8 - 5.6 % [facility] Comment: ? Prediabetes: 5.7 - 6.4 ? Diabetes: >6.4 ? Glycemic control for adults with diabetes: <7.0 Blood Structure of right upper limb / Unknown 03/15/2023 10:03 AM EDT 03/16/2023 Comment:Blood Release to [facility] - 03/16/2023 9:07 AM EDT Performed at: ??01 - [facility] ??[id number] Slurry Worker: Jacob Whaley PhD, Phone: ??[phone] Maria A Soria APRN LAB BLOOD ORDERABLES Final Result Performing Organization Address [facility] Co de Phone Number [facility] ([facility]) [address] [place] [address], [facility] [address] [place] [address], [place] [phone] documented in this encounter Visit Diagnoses Diagnosis [...] cervix documented in this encounter Care Teams Lap Layer Relationship Specialty Start Date End Date Maria A Soria APRN [address] [place] [phone] PCP - General Family Medicine 02/15/23 documented as of this encounter
--- OUTSIDE RECORDS SUMMARY | 2024-06-19 08:42 | XMS_ITS | Encounter Summary ---
[facility] Address [address] [place] [address] Care Team Providers Care Active Directory Specialist Name Role Phone Jaquan Conley MD Primary Care Provider [phone] Encounter Details Date Type Department Care Team (Late st Contact Info) Description 05/15/2021 12:00 PM EDT Lab [facility] [address] [place] [address] Anemia, unspecified type Social History [...] - 10.80 10*3/mm3 05/15/2021 6:58 PM EDT [facility] RBC 4.07 3.77 - 5.28 10*6/mm3 05/15/2021 6:58 PM EDT [facility] Hemoglobin 12.5 12.0 - 15.9 g/dL 05/15/2021 6:58 PM EDT [facility] Hematocrit 38.4 34.0 - 46.6 % 05/15/2021 6:58 PM EDT [facility] MCV 94.3 79.0 - 97.0 fL 05/15/2021 6:58 PM EDT [facility] MCH 30.7 26.6 - 33.0 pg 05/15/2021 6:58 PM EDT [facility] MCHC 32.6 31.5 - 35.7 g/dL 05/15/2021 6:58 PM EDT [facility] RDW 12.2(L) 12.3 - 15.4 % 05/15/2021 6:58 PM EDT [facility] RDW-SD 41.9 37.0 - 54.0 fl 05/15/2021 6:58 PM T [facility] MPV 13.9(H) 6.0 - 12.0 fL 05/15/2021 6:58 PM EDT [facility] Platelets 162 140 - 450 10*3/mm3 05/15/2021 6:58 PM T [facility] Neutrophil % 53.8 42.7 - 76.0 % 05/15/2021 6:58 PM EDT [facility] Lymphocyte % 36.7 19.6 - 45.3 % 05/15/2021 6:58 PM EDT [facility] Monocyte % 5.2 5.0 - 12.0 % 05/15/2021 6:58 PM EDT [facility] Eosinophil % 3.6 0.3 - 6.2 % 05/15/2021 6:58 PM [facility] Basophil % 0.5 0.0 - 1.5 % 05/15/2021 6:58 PM T [facility] Immature Grans % 0.2 0.0 - 0.5 % 05/15/2021 6:58 PM [facility] Neutrophils, Absolute 3.31 1.70 - 7.00 10*3/mm3 05/15/2021 6:58 PM T [facility] Lymphocytes, Absolute 2.26 0.70 - 3.10 10*3/mm3 05/15/2021 6:58 PM T [facility] Monocytes, Absolute 0.32 0.10 - 0.90 10*3/mm3 05/15/2021 6:58 PM EDT [facility] Eosinophils, Absolute 0.22 0.00 - 0.40 10*3/mm3 05/15/2021 6:58 PM EDT [facility] Basophils, Absolute 0.03 0.00 - 0.20 10*3/mm3 05/15/2021 6:58 PM EDT [facility] Immature Grans, Absolute 0.01 0.00 - 0.05 10*3/mm3 05/15/2021 6:58 PM EDT [facility] nRBC 0.0 0.0 - 0.2 /100 WBC 05/15/2021 6:58 PM EDT [facility] Blood Venipuncture / Unknown 05/15/2021 12:18 PM EDT 05/15/2021 1:22 PM EDT Adina Sands MD LAB BLOOD ORDERABLES Amy l Result Performing Organization Address [facility]/ZIP Co de Phone Number [facility]
[address] [place] [address], * (ABNORMAL) Urinalysis, Microscopic Only - Urine, Clean Catch (05/15/2021 12:18 PM EDT) RBC, UA 0-2 None Seen, 0-2 /HPF 05/15/2021 7:20 PM EDT [facility] WBC, UA 0-2 None Seen, 0-2 /HPF 05/15/2021 7:20 PM EDT [facility] Bacteria, UA 4+(A) None Seen /HPF 05/15/2021 7:20 PM EDT [facility] Squamous Epithelial Cells, UA 0-2 None Seen, 0-2 /HPF 05/15/2021 7:20 PM EDT [facility] Hyaline Casts, UA None Seen None Seen /LPF 05/15/2021 7:20 PM EDT [facility] Methodology Automated Microscopy 05/15/2021 7:20 PM EDT [facility] Urine Urine specimen collection, clean catch / Unknown Collection / Unknown 05/15/2021 12:18 PM EDT 05/15/2021 1:19 PM EDT Adina Sands MD URINE ORDERABLES Final Re sult Performing Organization Address [facility]/ZIP Co de Phone Number [facility]
[address] [place] [address], * (ABNORMAL) Urinalysis without microscopic (no culture) - Urine, Clean Catch (05/15/2021 12:18 PM EDT) Color, UA Yellow Yellow, Straw 05/15/2021 7:14 PM EDT [facility] Appearance, UA Clear Clear 05/15/2021 7:14 PM EDT [facility] pH, UA 6.5 5.0 - 8.0 05/15/2021 7:14 PM EDT [facility] Specific [place], UA 1.012 1.005 - 1.030 05/15/2021 7:14 PM EDT [facility] Glucose, UA Negative Negative 05/15/2021 7:14 PM EDT [facility] Ketones, UA Negative Negative 05/15/2021 7:14 PM EDT [facility] Bilirubin, UA Negative Negative 05/15/2021 7:14 PM EDT [facility] Blood, UA Negative Negative 05/15/2021 7:14 PM EDT [facility] Protein, UA 100 mg/dL (2+)(A) Negative 05/15/2021 7:14 PM EDT [facility] Leuk Esterase, UA Negative Negative 05/15/2021 7:14 PM EDT [facility] Nitrite, UA Negative Negative 05/15/2021 7:14 PM EDT [facility] Urobilinogen, UA 0.2 E.U./dL 0.2 - 1.0 E.U./dL 05/15/2021 7:14 PM EDT [facility] Urine Urine specimen collection, clean catch / Unknown Collection / Unknown 05/15/2021 12:18 PM EDT 05/15/2021 1:19 PM EDT Adina Sands MD URINE ORDERABLES Final Re sult [facility]
[address] [place] [address], * (ABNORMAL) Ferritin (05/15/2021 12:18 PM EDT) Pathologist [facility] Ferritin 302.00(H) 13.00 - 150.00 ng/mL 05/15/2021 8:42 PM EDT [facility] Blood Venipuncture / Unknown 05/15/2021 12:18 PM EDT 05/15/2021 1:22 PM EDT Narrative [facility] - 05/15/2021 8:42 PM EDT Results may be falsely decreased if patient taking Biotin. Adina Bridgesiq LAB BLOOD ORDERABLES Amy foreman Result [facility]
[address] [place] [address], * (ABNORMAL) Renal Function Panel (05/15/2021 12:18 PM EDT) [facility] Glucose 94 65 - 99 mg/dL 05/15/2021 8:28 PM EDT [facility] BUN 40(H) 6 - 20 mg/dL 05/15/2021 8:28 PM EDT [facility] Creatinine 3.83(H) 0.57 - 1.00 mg/dL 05/15/2021 8:28 PM EDT [facility] Sodium 140 136 - 145 mmol/L 05/15/2021 8:28 PM EDT [facility] Potassium 5.5(H) 3.5 - 5.2 mmol/L 05/15/2021 8:28 PM EDT [facility] Chloride 108(H) 98 - 107 mmol/L 05/15/2021 8:28 PM EDT [facility] CO2 21.5(L) 22.0 - 29.0 mmol/L 05/15/2021 8:28 PM EDT [facility] Calcium 8.8 8.6 - 10.5 mg/dL 05/[facility]21 [facility] Albumin 3.90 3.50 - 5.20 g/dL 05/15/2021 8:28 PM EDT [facility] Phosphorus 5.1(H) 2.5 - 4.5 mg/dL 05/15/2021 8:28 PM EDT [facility] Anion Gap 10.5 5.0 - 15.0 mmol/L 05/15/2021 8:28 PM EDT [facility] BUN/Creatinine Ratio 10.4 7.0 - 25.0 05/15/2021 8:28 PM EDT [facility] eGFR Non Amer 14(L) >60 mL/min/1.7 3 05/15/2021 8:28 PM EDT [facility] Comment:<15 Indicative of ki dney failure. eGFR Amer 05/15/2021 8:28 PM EDT [facility] Comment:<15 Indicative of ki dney failure. Blood Venipuncture / Unknown 05/15/2021 12:18 PM EDT 05/15/2021 1:22 PM EDT Narrative [facility] - 05/15/2021 8:28 PM EDT GFR Normal >60 Chronic Kidney Disease <60 Kidney Failure <15 Adina Sands MD LAB BLOOD ORDERABLES Amy l Result [facility]
[address] [place] [address], * (ABNORMAL) Iron Profile (05/15/2021 12:18 PM EDT) Iron 67 37 - 145 mcg/dL 05/15/2021 8:28 PM EDT [facility] Iron Saturation (TSAT) 27 20 - 50 % 05/15/2021 8:28 PM EDT [facility] Transferrin 168(L) 200 - 360 mg/dL 05/15/2021 8:28 PM EDT [facility] TIBC 250(L) 298 - 536 mcg/dL 05/15/2021 8:28 PM EDT [facility] Blood Venipuncture / Unknown 05/15/2021 12:18 PM EDT 05/15/2021 1:22 PM EDT Adina Sands MD LAB BLOOD ORDERABLES Amy l Result [facility]
[address] [place] [address], documented in this encounter Visit Diagnoses Diagnosis Anemia, unspecified type documented in this encounter Care Teams Active Directory Specialist Relationship Specialty Start Date End Date Jaquan Conley MD [address] [place] [address] PCP - General Internal Medicine 04/23/20 02/14/23 documented as of this encounter
--- OUTSIDE RECORDS SUMMARY | 2024-06-19 08:42 | XMS_ITS | Encounter Summary ---
[facility] Address [address] [place] [address] Care Team Providers Care Protocol Officer Name Role Phone Jaquan Conley MD Primary Care Provider [phone] Reason for Referral * (Routine) - Closed Specialty Diagnoses / Procedures Referred By Contac t Referred To Contact Radiology Diagnoses Tobacco use disorder Procedures XR Chest PA & Lateral Adina Sands MD [address] [facility] [address] [place] [address] Phone: tel: fax: Referral ID Status Reason Start Date Expiration Date Visits Re quested Visits Authorized [id number] Closed 02/09/2021 02/09/2022 1 1 Reason for Visit * (Routine) - Closed Specialty Diagnoses / Procedures Referred By Contac t Referred To Contact Radiology Diagnoses Tobacco use disorder Procedures XR Chest PA & Lateral Adina Sands MD [address] [facility] [address] [place] [address] Phone: tel: fax: Referral ID Status Reason Start Date Expiration Date Visits Re quested Visits Authorized [id number] Closed 02/09/2021 02/09/2022 1 1 Encounter Details Date Type Department Care Team (Late st Contact Info) Description 02/09/2021 2:41 PM EDT - 02/09/2021 11:59 PM EDT Hospital Encounter [facility] X[facility] [address] [place] [address] Adina Sands MD [address] [place] [address] Tobacco use disorder Discharge Disposition: [...] 240 tablet 1 06/14/2018 Vitamin D, Ergocalciferol, 38748 units capsule 50,000 Int'l Units. 06/03/2020 acetaminophen [...] disorder documented in this encounter Care Teams Protocol Officer Relationship Specialty Start Date End Date Jaquan Conley MD [address] [place] [address] PCP - General Internal Medicine 04/23/20 02/14/23 documented as of this encounter
--- OUTSIDE RECORDS SUMMARY | 2024-06-19 08:42 | XMS_ITS | Clinical Summary ---
[facility] Address [address] [place] [address] Care Team Providers Care Metal Mover Name Role Phone YangMaria A alex Vivek RENE Primary Care Provider [phone] Allergies Active Allergy Reactions Criticality Noted Date [...] Uses Insulin pump Active Vitamin D, Ergocalciferol, 35265 units capsule 50,000 Int'l Units. 06/03/20 20 [...] 2023 she received a call from the [facility] that they had a match for her [...] daily. Continues to be followed closely by [facility] transplant as well as Dr. Stevens at [facility] locally. Recurrent UTI 03/15/2023 Assessment & Plan [...] followed by Dr. Stevens at [facility]. Working towards renal transplant with [facility].. Assessment & Plan (03/15/2023 5:10 PM EDT): Etiology of end-stage renal disease appears to be hypertensive nephrosclerosis as well as diabetic nephropathy. She was a noncompliant type I diabetic for many years, diagnosed at the age of 12. She is currently performing home peritoneal dialysis nocturnally 6 days/week. Working towards renal transplant with [facility]. Followed by [facility], Dr. Stevens. Assessment & Plan (02/15/2023 3:01 PM EDT): Etiology of end-stage renal disease appears to be hypertensive nephrosclerosis as well as diabetic Nephropathy. She was a noncompliant type I diabetic for many years, diagnosed at the age of 12. She is currently performing home peritoneal dialysis nocturnally 6 days/week. Working towards renal transplant with [facility]. To pursue transplant services at [facility] as well but finances are [...] been started on GLP-1 therapy by her elementary science teacher and is back down to 157 pounds [...] of 107. She reports she saw her principal architectural firm who wanted to increase her blood pressure medications but she refused stating she knew she stopped the medications her blood pressure would return to normal. She is now off both BuSpar and venlafaxine with blood pressure 110/74 in office today. Patient feels her mood is stable currently without medications due to some decrease stressors in the home. Her [id number] with whom she help caregive from [place]'s disease, decreasing some of her personal obligations. [...] parasites and C. difficile toxin. 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 al and bone disorder 02/15/2023 06/07/2024 [...] Description 06/07/2024 9:45 AM EST Office Visit [facility] [address] [place] [address] [place] [address] Maria A Soria APRN Renal transplant [...] AM EDT Performed at: ??01 - [facility] [address] [place] [address] ??[id number] [employer] Roboticist: Jacob Whaley PhD, Phone: ??[phone] us Maria A Soria APRN LAB BLOOD ORDERABLES Final Result [facility] [address] [place] [address], [facility] [address] [place] [address], * Hepatitis C Antibody (07/23/2019 10:03 AM EST) Hepatitis C Ab Non-Reacti ve Non-Reacti ve 07/23/2019 6:31 PM EST [facility] Blood Venipuncture / Unknown 07/23/2019 10:03 AM EST 07/23/2019 10:38 AM EST Mukul Stevens MD LAB BLOOD ORDERABLES F inal Result [facility]
[address] [place] [address], from Last 3 Months or Most Recently [...] pulse or is breathing): Full Care Teams Metal Mover Relationship Specialty Start Date End Date Maria A Soria, ANJU [address] [id number] PCP - General Family Medicine 02/15/23
--- OUTSIDE RECORDS SUMMARY | 2024-06-19 08:42 | XMS_ITS | Encounter Summary ---
[facility] Address [address] [place] [address] Care Team Providers Care Forestry Technician Name Role Phone Jaquan Conley MD Primary Care Provider [phone] Encounter Details Date Type Department Care Team (Late st Contact Info) Description 06/18/2021 11:45 AM EST Lab [facility] [address] [place] [address] Anemia, unspecified type; CKD stage [...] CBC Auto Differential (06/18/2021 11:50 AM EST) [facility] WBC 5.83 3.40 - 10.80 10*3/mm3 06/18/2021 6:07 PM [facility] RBC 3.87 3.77 - 5.28 10*6/mm3 06/18/2021 6:07 PM [facility] Hemoglobin 12.3 12.0 - 15.9 g/dL 06/18/2021 6:07 PM [facility] Hematocrit 36.2 34.0 - 46.6 % 06/18/2021 6:07 PM [facility] MCV 93.5 79.0 - 97.0 fL 06/18/2021 6:07 PM [facility] MCH 31.8 26.6 - 33.0 pg 06/18/2021 6:07 PM [facility] MCHC 34.0 31.5 - 35.7 g/dL 06/18/2021 6:07 PM [facility] RDW 12.0(L) 12.3 - 15.4 % 06/18/2021 6:07 PM [facility] RDW-SD 41.0 37.0 - 54.0 fl 06/18/2021 6:07 PM [facility] MPV 13.5(H) 6.0 - 12.0 fL 06/18/2021 6:07 PM [facility] Platelets 186 140 - 450 10*3/mm3 06/18/2021 6:07 PM [facility] Neutrophil % 51.0 42.7 - 76.0 % 06/18/2021 6:07 PM [facility] Lymphocyte % 38.3 19.6 - 45.3 % 06/18/2021 6:07 PM [facility] Monocyte % 5.3 5.0 - 12.0 % 06/18/2021 6:07 PM [facility] Eosinophil % 4.5 0.3 - 6.2 % 06/18/2021 6:07 PM [facility] Basophil % 0.7 0.0 - 1.5 % 06/18/2021 6:07 PM [facility] Neutrophils, Absolute 2.98 1.70 - 7.00 10*3/mm3 06/18/2021 6:07 PM [facility] Lymphocytes, Absolute 2.23 0.70 - 3.10 10*3/mm3 06/18/2021 6:07 PM [facility] Monocytes, Absolute 0.31 0.10 - 0.90 10*3/mm3 06/18/2021 6:07 PM [facility] Eosinophils, Absolute 0.26 0.00 - 0.40 10*3/mm3 06/18/2021 6:07 PM [facility] Basophils, Absolute 0.04 0.00 - 0.20 10*3/mm3 06/18/2021 6:07 PM [facility] Blood Venipuncture / Unknown 06/18/2021 11:50 AM EST 06/18/2021 12:26 PM EST Adina Sands MD LAB BLOOD ORDERABLES Amy l Result Performing Organization Address [facility]/ZIP Co de Phone Number [facility]
[address] [place] [address], * (ABNORMAL) Urinalysis, Microscopic Only - Urine, Clean Catch (06/18/2021 11:50 AM EST) RBC, UA 0-2 None Seen, 0-2 /HPF 06/18/2021 7:18 PM [facility] WBC, UA 3-5(A) None Seen, 0-2 /HPF 06/18/2021 7:18 PM [facility] Bacteria, UA 2+(A) None Seen /HPF 06/18/2021 7:18 PM [facility] Squamous Epithelial Cells, UA 7-12(A) None Seen, 0-2 /HPF 06/18/2021 7:18 PM [facility] Hyaline Casts, UA 0-2 None Seen /LPF 06/18/2021 7:18 PM [facility] Methodology Manual Light Microscopy 06/18/2021 7:18 PM [facility] Urine Urine specimen obtained by clean catch procedure / Unknown Collection / Unknown 06/18/2021 11:50 AM EST 06/18/2021 12:25 PM EST Adina Sands MD URINE ORDERABLES Final Re sult [facility]
[address] [place] [address], [place] [phone] * (ABNORMAL) Urinalysis without microscopic (no culture) - Urine, Clean Catch (06/18/2021 11:50 AM EST) Color, UA Yellow Yellow, Straw 06/18/2021 6:38 PM [facility] Appearance, UA Clear Clear 06/18/2021 6:38 PM [facility] pH, UA 5.5 5.0 - 8.0 06/18/2021 6:38 PM [facility] Specific [place], UA 1.012 1.005 - 1.030 06/18/2021 6:38 PM [facility] Glucose, UA Negative Negative 06/18/2021 6:38 PM [facility] Ketones, UA Negative Negative 06/18/2021 6:38 PM [facility] Bilirubin, UA Negative Negative 06/18/2021 6:38 PM [facility] Blood, UA Moderate (2+)(A) Negative 06/18/2021 6:38 PM [facility] Protein, UA 100 mg/dL (2+)(A) Negative 06/18/2021 6:38 PM [facility] Leuk Esterase, UA Negative Negative 06/18/2021 6:38 PM [facility] Nitrite, UA Negative Negative 06/18/2021 6:38 PM [facility] Urobilinogen, UA 0.2 E.U./dL 0.2 - 1.0 E.U./dL 06/18/2021 6:38 PM [facility] Urine Urine specimen obtained by clean catch procedure / Unknown Collection / Unknown 06/18/2021 11:50 AM EST 06/18/2021 12:25 PM EST Adina Sands MD URINE ORDERABLES Final Re sult [facility]
[address] [place] [address], [place] [phone] * (ABNORMAL) Ferritin (06/18/2021 11:50 AM EST) Pathologist [facility] Ferritin 231.00(H) 13.00 - 150.00 ng/mL 06/18/2021 6:35 PM [facility] Blood Venipuncture / Unknown 06/18/2021 11:50 AM EST 06/18/2021 12:26 PM EST [facility] - 06/18/2021 6:35 PM EST Results may be falsely decreased if patient taking Biotin. Adina Sands MD LAB BLOOD ORDERABLES Amy foreman Result [facility]
[address] [place] [address], * (ABNORMAL) Renal Function Panel (06/18/2021 11:50 AM EST) [facility] Glucose 197(H) 65 - 99 mg/dL 06/18/2021 7:06 PM [facility] BUN 41(H) 6 - 20 mg/dL 06/18/2021 7:06 PM [facility] Creatinine 3.69(H) 0.57 - 1.00 mg/dL 06/18/2021 7:06 PM [facility] Sodium 139 136 - 145 mmol/L 06/18/2021 7:06 PM [facility] Potassium 5.4(H) 3.5 - 5.2 mmol/L 06/18/2021 7:06 PM [facility] Chloride 107 98 - 107 mmol/L 06/18/2021 7:06 PM [facility] CO2 18.7(L) 22.0 - 29.0 mmol/L 06/18/2021 7:06 PM [facility] Calcium 8.5(L) 8.6 - 10.5 mg/dL 06/18/2021 7:06 PM [facility] Albumin 4.10 3.50 - 5.20 g/dL 06/18/2021 7:06 PM [facility] Phosphorus 5.0(H) 2.5 - 4.5 mg/dL 06/18/2021 7:06 PM [facility] Anion Gap 13.3 5.0 - 15.0 mmol/L 06/18/2021 7:06 PM [facility] BUN/Creatinine Ratio 11.1 7.0 - 25.0 06/18/2021 7:06 PM [facility] eGFR Non Amer 14(L) >60 mL/min/1.7 3 06/18/2021 7:06 PM [facility] Comment:<15 Indicative of ki dney failure. eGFR Amer 06/18/2021 7:06 PM [facility] Comment:<15 Indicative of ki dney failure. Blood Venipuncture / Unknown 06/18/2021 11:50 AM EST 06/18/2021 12:26 PM EST [facility] - 06/18/2021 7:06 PM EST GFR Normal >60 Chronic Kidney Disease <60 Kidney Failure <15 Adina Sands MD LAB BLOOD ORDERABLES Amy l Result [facility]
[address] [place] [address], * Iron Profile (06/18/2021 11:50 AM EST) Iron 90 37 - 145 mcg/dL 06/18/2021 7:06 PM [facility] Iron Saturation (TSAT) 29 20 - 50 % 06/18/2021 7:06 PM [facility] Transferrin 208 200 - 360 mg/dL 06/18/2021 7:06 PM [facility] TIBC 310 298 - 536 mcg/dL 06/18/2021 7:06 PM [facility] Blood Venipuncture / Unknown 06/18/2021 11:50 AM EST 06/18/2021 12:26 PM EST Adina Sands MD LAB BLOOD ORDERABLES Amy foreman Result [facility]
[address] [place] [address], documented in this encounter Visit Diagnoses Diagnosis Anemia, unspecified type CKD stage G5/A3, GFR <15 and albumin creatinine ratio >300 mg/g documented in this encounter Care Teams Forestry Technician Relationship Specialty Start Date End Date Jaquan Conley MD [address] [place] [address] PCP - General Internal Medicine 04/23/20 02/14/23 documented as of this encounter
--- OUTSIDE RECORDS SUMMARY | 2024-06-19 08:42 | XMS_ITS | Encounter Summary ---
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 [facility] Emergency Department Depart Summary PERSON INFORMATION Name Crystal Archer Age 28 Years 1990 Sex Female Language PCP Marital Status Phone [phone] Visit Id Visit Reason Specialty Enc Type Emergency Med Service Referred by Track Group [facility] Discharge Tracking Id [id number] Checkout 09/07/2018 16:31:16 Checkin 09/07/2018 15:20:00 Acuity 4 - Non-urgent [facility] Dispo Type Arrival 09/07/2018 15:20:00 Reg Status LOS 000 01:11 Address: [address] [place] [address] [place] [address] [employer] PHYSICIAN NOTES VITALS INFORMATION Vital Sign Triage Temp 99.1 Temp Route Oral/Mouth Pulse Rate 61 Respiratory Rate 20 Blood Pressure 145/ 91 LOCATION INFORMATION Arrival Nurse Unit Room Bed 09/07/2018 15:20:00 [facility] ED Waitroom ([facility]) 09/07/2018 15:34:51 [facility] ED 9 09/07/2018 16:31:16 [facility] ED Checkout ([facility]) MEDICAL INFORMATION Allergy Info: No Known [...]
--- OUTSIDE RECORDS SUMMARY | 2024-06-19 08:42 | XMS_ITS | Encounter Summary ---
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 [facility] Emergency Department Depart Summary PERSON INFORMATION Name Crystal Archer Age 27 Years 1990 Sex Female Language PCP Marital Status Phone [phone] Visit Id Visit Reason Specialty Enc Type Emergency Med Service Referred by Track Group [facility] Discharge Tracking Id [id number] Checkout 08/03/2018 14:32:57 Checkin 08/03/2018 13:52:00 Acuity 3 - Urgent [facility] Dispo Type Arrival 08/03/2018 13:52:00 Reg Status LOS 000 00:40 Address: [address] [place] [address] [place] [address] POWERFORMS PHYSICIAN NOTES VITALS INFORMATION Vital Sign Triage Temp 98.1 Temp Route Oral/Mouth Pulse Rate 90 Respiratory Rate 18 Blood Pressure 152/ 87 LOCATION INFORMATION Arrival Nurse Unit Room Bed 08/03/2018 13:52:00 [facility] ED Waitroom ([facility]) 08/03/2018 13:55:29 [facility] ED 3 08/03/2018 14:32:57 [facility] ED Checkout ([facility]) MEDICAL INFORMATION Allergy Info: No Known Allergies PATIENT EDUCATION INFORMATION Instructions: Follow up: DIAGNOSIS Electronically signed by Zuleyka Byrd Conversion Sales Representative [employer] at 10/19/2022 11:22 AM CDT documented in this encounter Plan of Treatment Not on file documented as of this encounter Visit Diagnoses Not on filedocumented in this encounter
--- OUTSIDE RECORDS SUMMARY | 2024-06-19 08:42 | XMS_ITS | Encounter Summary ---
Author Organization [facility] Address [address] [place] [id number] Care Team Providers Care Skilled Nursing Case Manager Name Role Phone Maria A Soria PATIENT ACCOUNTS COORDINATOR Primary Care Provider [phone] Reason for Visit * Reason Comments Follow-up Encounter Details Date Type Department Care Team (Late st Contact Info) Description 04/25/2023 11:30 AM EDT Office Visit [facility] PRIMARY CARE [address] [place] [phone] Maria A Soria APRN [address] [place] [address] Type 1 diabetes mellitus with [...] followed by Dr. Stevens at [facility]. Working towards renal transplant with [place] [...] of 107. She reports she saw her gas station manager who wanted to increase her blood pressure medications but she refused stating she knew she stopped the medications her blood pressure would return to normal. She is now off both BuSpar and abner lafaxine with blood pressure 110/74 in office today. Patient feels her mood is stable currently without medications due to some decrease stressors in the home. Her tyzlgb-fj-zdg with whom she help caregive from Valentina's [...] of 107. She reports she saw her gas station manager who wanted to increase her blood pressure medications but she refused stating she knew she stopped the medications her blood pressure would return to normal. She is now off both BuSpar and venlafaxine with blood pressure 110/74 in office today. 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 [...] 10/17/2012 SECTION GASTRIC SLEEVE LAPAROSCOPIC INDUCED 2006 [facility] No family history on [...] by Dr. Stevens at [facility]. Working towards renal transplant with [place] [...] of 107. She reports she saw her gas station manager who wanted to increase her blood pressure medications but she refused stating she knew she stopped the medications her blood pressure would return to normal. She is now off both BuSpar and abner lafaxine with blood pressure 110/74 in office today. Patient feels her mood is stable currently without medications due to some decrease stressors in the home. Her zngseb-lb-ghd with whom she help caregive from Valentina's [...] disorder documented in this encounter Care Teams Skilled Nursing Case Manager Relationship Specialty Start Date End Date Maria A Soria APRN [address] [place], [place] [id number] PCP - General Family Medicine 02/15/23 documented as of this encounter
--- OUTSIDE RECORDS SUMMARY | 2024-06-19 08:42 | XMS_ITS | Encounter Summary ---
Author Organization [facility] Address [address] [place] [id number] Care Team Providers Care Prototype Machine Operator Name Role Phone Maria A Soria APRN Primary Care Provider [phone] Reason for Visit * Reason Onset Date Comments Med Refill 02/16/2023 Encounter Details Date Type Department Care Team (Late st Contact Info) Description 02/16/2023 Refill [facility] [address] [place] [phone] Maria A Soria, AUDIOMETRIST [address] [place], [place] [id number] Persistent depressive disorder Social History Tobacco Use [...] ARCHER Relationship: SELF Best call back number: [phone] Requested Prescriptions: Requested Prescriptions Pending Prescriptions Disp Refills buPROPion XL (Wellbutrin XL) 150 MG 24 hr tablet 90 tablet 0 Sig: Take 1 tablet by mouth Daily. Pharmacy where request should be sent: [facility] [address] [place] [address] [phone] [facility] [phone] FX Last office visit with prescribing clinician: [...] disorder documented in this encounter Care Teams Prototype Machine Operator Relationship Specialty Start Date End Date Maria A Soria APRN [address] [place], [place] [phone] PCP - General Family Medicine 02/15/23 documented as of this encounter
--- OUTSIDE RECORDS SUMMARY | 2024-06-19 08:42 | XMS_ITS | Encounter Summary ---
Author Organization [facility] Address [address] [place] [address] Care Team Providers Care Physical Education Professor Name Role Phone Maria A Soria Vivek RENE Primary Care Provider [phone] Encounter Details Date Type Department Care Team (Late st Contact Info) Description 02/16/2023 Patient rounding ([facility] only) [facility] [address] [place] [address] [place] [address] Chey Coello Social History Tobacco [...] - 02/16/2023 2:20 PM EDTSummary: Rounding ..A RealityMine message has been sent to the patient for patient rounding with [facility]. documented in this encounter Plan of Treatment Not on file documented as of this encounter Visit Diagnoses Not on filedocumented in this encounter Care Teams Physical Education Professor Relationship Specialty Start Date End Date Maria A Soria APRN [address] [place], [place] [phone] PCP - General Family Medicine 02/15/23 documented as of this encounter
--- OUTSIDE RECORDS SUMMARY | 2024-06-19 08:42 | XMS_ITS | Encounter Summary ---
Author Organization [facility] Address [address] [place] [address] Care Team Providers Care Technical Services Consultant Name Role Phone Unavailable Primary Care Provider Unavailabl e Encounter Details Date Type Department Care Team (Late st Contact Info) Description 08/03/2018 Transcribed Document [facility] Family Medicine [address] [place] [address] ProviderLaury MD [address] [place] [phone] Social History Tobacco Use Types Packs/Day Years [...] Laury ProviderMD - 08/03/2018 7:32 PM DIRECTOR SUPPLY CHAIN [facility] [place], [place] [phone] Name:Crystal Archer Visit Date:08/03/2018 13:52:00 Emergency Department Care Providers: Physician: MEGHA MAN Physician: Our doctors and staff appreciate your choice of [facility] for your emergency medical care. Read these instructions carefully. Please call us if you have any questions about your medical problem. [facility] Emergency Department [phone] [facility] Emergency Department [phone] [facility] Emergency Department [phone] Patient Education Materials Crystal Archersil has been [...] x-ray department to pick them up o [facility] # [phone] o [facility] # [phone] o [facility] # [phone] ?? If you had cultures done and [...] quit. o National Network of Tobacco Cessation [id number] o [employer] Association o [employer] Association 7-574491-1486 o Sai/Manuel Mahendra [phone] FINANCIAL INFORMATION ?? [facility] provides financial counseling to anyone who requests our services. ?? Emergency Physicians are independently contracted to provide your care. You will receive a bill for the care provided to you by the Physician and/or the Physician Hatchery Helper. This will be a separate bill [...] as recommended Patient Signature / or Patient Entry Clerk Provider Signature Date documented in this encounter Plan of Treatment Not on file documented as of this encounter Visit Diagnoses Not on filedocumented in this encounter
--- OUTSIDE RECORDS SUMMARY | 2024-06-19 08:42 | XMS_ITS | Encounter Summary ---
Author Organization [facility] Address [address] [place] [id number] Care Team Providers Care Deodorizer Operator Name Role Phone Maria A Soria FRUIT TESTER Primary Care Provider [phone] Reason for Visit * Reason Comments Annual Exam Encounter Details Date Type Department Care Team (Late st Contact Info) Description 06/07/2024 9:45 AM EST Office Visit [facility]IMARY [facility]ARE [address] [place] [phone] Maria A Soria, FRUIT TESTER [address] [place] [address] Renal transplant recipient (Primary Dx); [...] mood stability without antidepressants. * Maria A Soria APRN - 06/07/2024 12:37 PM ESTAssociated Problem(s): [...] been started on GLP-1 therapy by her mail order biller and is back down to 157 pounds [...] 2023 she received a call from the Psychiatric that they had a match for her [...] daily. Continues to be followed closely by Psychiatric transplant as well as Dr. Stevens at [...] 2023 she received a call from the Psychiatricthat they had a match for her renal [...] abnormal pap smear or family history of materials planner cancer: Last mammogram was Last Completed Mammogram [...] Abdomen is soft. Genitourinary: Comments: Defer to materials planner Musculoskeletal: General: Normal range of motion. Cervical [...] 2023 she received a call from the Psychiatric that they had a match for her [...] daily. Continues to be followed closely by Psychiatric transplant as well as Dr. Stevens at [facility]. 2. Mixed hyperlipidemia Assessment & Plan: Patient [...] been started on GLP-1 therapy by her mail order biller and is back down to 157 pounds [...] insulin documented in this encounter Care Teams Deodorizer Operator Relationship Specialty Start Date End Date Maria A Soria APRN [address] [place], [place] [phone] PCP - General Family Medicine 02/15/23 documented as of this encounter
--- OUTSIDE RECORDS SUMMARY | 2024-06-19 08:42 | XMS_ITS | Encounter Summary ---
Author Organization [facility] [facility] [employer] Address [address] [place] [address] Care Team Providers Care Warehouse Engineer Name Role Phone Unavailable Primary Care Provider Unavailabl e Encounter Details Date Type Department Care Team (Late st Contact Info) Description 09/07/2018 Transcribed Document [facility] Family Medicine [address] [place] [address] ProviderLaury MD [address] [place] [address] Social History Tobacco Use Types Packs/Day [...] - Laury ProviderMD - 09/07/2018 8:23 PM WEB PAGE DESIGNER BBK Triage ED Entered On: 09/07/2018 15:30 [...] : No GI 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 : No Liquor Gallery Operator Hx : No Heart Attack : [...] Source : Stated Height Entry Format : [place] Height, Inches : 65 Inch(Converted to: 5 ft 5 Inch, 165.10 cm) Clinical Height : 165.1 cm Weight Source : Stated Type of Weight Measurement Est : [place] Weight, est lb : 215 lb Estimated Clinical Dosing Weight : 97.73 kg [place] Body Weight : 57 kg Body Surface Area Estimated : 2.12 m2 Body Mass Index Estimated : 35.85 kg/m2 Silvia Cole, - 09/07/2018 15:23 EST Medication List ED Medications Reviewed : Yes Source of Information : Patient Silvia Cole, - 09/07/2018 15:23 EST Medication List (As Of: 09/07/2018 15:30:02 EST) Home Meds Status: Processing ; Ordered As Mnemonic: [place] 5 mg-325 mg oral tablet ; Simple [...]
--- OUTSIDE RECORDS SUMMARY | 2024-06-19 08:42 | XMS_ITS | Encounter Summary ---
Author Organization [facility] Address [address] [place] [address] Care Team Providers Care Client Services Coordinator Name Role Phone Maria A Soria APRN Primary Care Provider [phone] Reason for Referral * Consultation (Routine) - Closed Specialty Diagnoses / Procedures Referred By Xochitl t Referred To Contact Gynecology Diagnoses Cervical cancer screening Procedures SD OFFICE/OUTPATIENT NEW MODERATE MDM 45-59 MINUTES Maria A Soria APRN [address] [place] [address] Phone: tel: fax: Osbaldo Zarco MD [address] [place] [address] Phone: tel: fax: Referral ID Status Reason Start Date Expiration Date V isits Requested Visits Authorized [id number] Closed Specialty Services Required 03/15/2023 03/14/2024 1 1 Reason for Visit * Reason Comments Annual Exam Encounter Details Date Type Department Care Team (Late st Contact Info) Description 03/15/2023 10:15 AM EDT Office Visit [facility] PRIMARY [facility]ARE [address] [place] [address] [place] [address] Maria A Soria APRN [address] [place] [address] Recurrent UTI (Primary Dx); Type [...] 6 days/week. Working towards renal transplant with [facility]. Followed by [facility], Dr. Stevens. * Maria A Soria APRN [...] not up-to-date on cervical cancer screening, requesting PROVIDER NETWORK MGR referral to establish care. She is up-to-date [...] abnormal pap smear or family history of editor trade journal cancer: unknown Last mammogram was Last Completed [...] 6 days/week. Working towards renal transplant with [facility]. Followed by [facility], Dr. Stevens. Orders: - CBC & Differential [...] Comment:Blood Release to [facility] Ar[facility]o [facility] (AMBULATORY) - 03/16/2023 9:07 AM EDT Performed at: ??01 - [facility] [address] [place] [address] ??[id number] Floor Finisher: Jacob Whaley PhD, Phone: ??[phone] Maria A Soria APRN LAB BLOOD ORDERABLES Final Result Performing Organization Address [facility]/ZIP Co de Phone Number [facility] (AMBULATORY) [address] [place] [address], [place] [phone] [facility] [address] [place] [address], * (ABNORMAL) Lipid Panel (03/15/2023 10:03 AM [...] EDT 03/16/2023 Comment:Blood Release to bhavin Alberts [facility] (AMBULATORY) - 03/16/2023 9:07 AM EDT Performed at: ??01 - [facility] [address] ??[id number] Floor Finisher: Jacob Whaley PhD, Phone: ??[phone] Maria A Soria APRN LAB BLOOD ORDERABLES Final Result Performing Organization Address [facility]/ZIP Co de Phone Number [facility] [address] [place] [address], [place] [phone] [facility] [address] [place] [address], [place] [phone] * (ABNORMAL) CBC & Differential (03/15/2023 10:03 [...] 9:07 AM EDT Performed at: ??01 - [facility] ??[id number] Floor Finisher: Jacob Whaley PhD, Phone: ??[phone] us Maria A Soria BARK PRESS OPERATOR LAB BLOOD ORDERABLES Final Result [facility] (AMBULATORY) [address] [place] [address], [place] [phone] [facility] [address] [place] [address], * (ABNORMAL) Comprehensive Metabolic Panel (03/15/2023 10:03 [...] 9:07 AM EDT Performed at: ??01 - [facility], [place], [place] ??[id number] Floor Finisher: Jacob Whaley PhD, Phone: ??[phone] Maria A Soria APRN LAB BLOOD ORDERABLES Final Result Performing Organization Address [facility]/ZIP Co de Phone Number [facility] (AMBULATORY) [address] [place] [address], [place] [phone] [facility] [address] [place] [address], [place] [phone] * TSH Rfx On Abnormal To Free T4 (03/15/2023 10:03 AM EDT) TSH 2.880 0.450 - 4.500 uIU/mL [facility] Blood Structure of right upper limb / Unknown 03/15/2023 10:03 AM EDT 03/16/2023 Comment:Blood Release to [facility] michell Alberts [facility] (AMBULATORY) - 03/16/2023 9:07 AM EDT Performed at: ??01 - [facility] [address] [place] [address] ??[id number] Floor Finisher: Jacob Whaley PhD, Phone: ??[phone] Maria A Soria APRN LAB BLOOD ORDERABLES Final Result Performing Organization Address [facility] Co de Phone Number [facility] (AMBULATORY) [address] [place] [address], [place] [phone] [facility] [address] [place] [address], [place] [phone] * (ABNORMAL) Urine Culture - , (03/15/2023 [...] PM EDT Performed at: ??01 - [facility] [address] [facility], [place], [place] ??[id number] Floor Finisher: Jacob Whaley PhD, Phone: ??[phone] Maria A Soria APRN MICROBIOLOGY - GENERAL ANABEL UGARTE Final Result [facility] ([facility]BULATORY) [address] [place] [address], [place] [phone] [facility] [address] [place] [address], [place] [phone] documented in this encounter Visit Diagnoses Diagnosis [...] documented as of this encounter Care Teams Client Services Coordinator Relationship Specialty Start Date End Date Maria A Soria APRN [address] [place], [place] [phone] PCP - General Family Medicine 02/15/23 documented as of this encounter
--- OUTSIDE RECORDS SUMMARY | 2024-06-19 08:42 | XMS_ITS | Encounter Summary ---
Author Organization [facility] Address [address] [place] [phone] Care Team Providers Care Roving Court Reporter Name Role Phone Maria A Soria CITY SUPERVISOR Primary Care Provider [phone] Encounter Details Date Type Department Care Team (Late st Contact Info) Description 03/18/2023 Telephone [facility]IMARY [facility]ARE [address] [place] [phone] Maria A Soria CITY SUPERVISOR [address] [place], [place] [phone] Social History Tobacco Use Types Packs/Day Years [...] documented as of this encounter Care Teams Roving Court Reporter Relationship Specialty Start Date End Date Maria A Soria APRN [address] [place], [place] [phone] PCP - General Family Medicine 02/15/23 documented as of this encounter
--- OUTSIDE RECORDS SUMMARY | 2024-06-19 08:42 | XMS_ITS | Encounter Summary ---
Author Organization [facility] Address [address] [place] [address] Care Team Providers Care Seo Analyst Name Role Phone Unavailable Primary Care Provider Unavailabl e Encounter Details Date Type Department Care Team (Late st Contact Info) Description 08/03/2018 Transcribed Document [facility] Family Medicine [address] [place] [address] ProviderLaury MD [address] [place] [address] Social History Tobacco Use Types Packs/Day [...] - Laury ProviderMD - 08/03/2018 6:57 PM ENVIRONMENTAL HEALTH SAFETY ENGINEER BBK Triage ED Entered On: 08/03/2018 14:06 [...] back pain, dysuria since 0430. D/CD from [facility] 07/22 AMA for UTI. Health History Reviewed [...] : No GI 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 : No Vice President Mission Integration Hx : No Heart Attack : No [...] Preferred Communication Mode : Verbal Languages : Martiniquais Child/Parent Domestic Concerns : None Threats of Suicide : No ROSA FOSTER 08/03/2018 13:57 EST Height and Weight Height Source : Stated Height Entry Format : [place] Height, Inches : 65 Inch(Converted to: 5 ft 5 Inch, 165.10 cm) Clinical Height : 165.1 cm Weight Source : Stated Type of Weight Measurement Est : [place] Weight, est lb : 215 lb Estimated Clinical Dosing Weight : 97.73 kg [place] Body Weight : 57 kg Body Surface [...]
--- OUTSIDE RECORDS SUMMARY | 2024-06-19 08:43 | XMS_ITS | Encounter Summary ---
[facility] Organization [facility] Address [address] [place] [phone] Care Team Providers Care Car Greaser Name Role Phone Jaquan Conley MD Primary Care Provider [phone] Reason for Visit * Reason Comments Leg Injury Encounter Details Date Type Department Care Team (Late st Contact Info) Description 10/28/2020 7:40 PM EDT - 10/28/2020 8:47 PM EDT Emergency [facility] EMERGENCY DEPARTMENT [address] [place] [phone] Krissy Bowman MD Contusion of left [...] be sent through Care Everywhere. * Contusion Lvig-iy-Mhso (Montserratian) documented in this encounter Medications at [...] 240 tablet 1 06/14/2018 Vitamin D, Ergocalciferol, 31830 units capsule 50,000 Int'l Units. 06/03/2020 acetaminophen [...] Condition Comment Discharge Stable Jaquan Conley MD [address] [place], [place] [phone] Schedule an appointment as soon as possible for a visit Medication List No changes were made to your prescriptions during this visit. Pearl Wakefield APRN 10/28/202042 Cosigned by Krissy Bowman MD at 10/28/2020 11:01 PM EDT Associated attestation - Krissy Bowman MD - 10/28/2020 11:01 PM EDT For this patient encounter, I reviewed the HARPOON ENGAGEMENT PLANNING OPERATOR or PA documentation, treatment plan, and [...] finalized on 10/29/2020 12:41 PM by Brittny Lcaey M.D.. Narrative 10/29/2020 12:41 PM EDT PROCEDURE: [...] PM by Brittny Lacey M.D.. Pearl Wakefield BODY PIERCER IMG DIAGNOSTIC IMAGING OR DERABLES Final Result documented in this encounter Visit Diagnoses Diagnosis Contusion of left ankle, initial encounter- Primary documented in this encounter Care Teams Car Greaser Relationship Specialty Start Date End Date Jaquan Conley MD [address] [place] [address] PCP - General Internal Medicine 04/23/20 02/14/23 documented as of this encounter
--- OUTSIDE RECORDS SUMMARY | 2024-06-19 08:43 | XMS_ITS | Encounter Summary ---
Author Organization [facility] Address [address] [place] [address] Care Team Providers Care Centrifugal Spinner Name Role Phone Jaquan Conley MD Primary Care Provider [phone] [phone] Encounter Details Date Type Department Care Team (Late st Contact Info) Description 09/16/2020 12:40 PM EST Lab [facility] [address] [place] [address] Chronic kidney disease, stage V; [...] None Seen, 0-2 /HPF 09/16/2020 11:12 PM [facility] WBC, UA 6-12(A) None Seen, 0-2 /HPF 09/16/2020 11:12 PM [facility] Bacteria, UA 4+(A) None Seen /HPF 09/16/2020 11:12 PM EST [facility] Squamous Epithelial Cells, UA 13-20(A) None Seen, 0-2 /HPF 09/16/2020 11:12 PM [facility] Hyaline Casts, UA 3-6 None Seen /LPF 09/16/2020 11:12 PM [facility] Methodology Automated Microscopy 09/16/2020 11:12 PM [facility] Urine Urine specimen collection, clean catch / Unknown Collection / Unknown 09/16/2020 1:10 PM EST 09/16/2020 4:26 PM EST Adina Sands MD URINE ORDERABLES Final Re sult [facility]
[address] [place] [address], * (ABNORMAL) Urinalysis without microscopic (no culture) - Urine, Clean Catch (09/16/2020 1:10 PM EST) Color, UA Other(A) Yellow, Straw 09/16/2020 11:20 PM [facility] Appearance, UA Cloudy(A) Clear 09/16/2020 11:20 PM [facility] pH, UA 6.0 5.0 - 8.0 09/16/2020 11:20 PM [facility] Specific [place], UA 1.013 1.005 - 1.030 09/16/2020 11:20 PM [facility] Glucose, UA Negative Negative 09/16/2020 11:20 PM [facility] Ketones, UA Negative Negative 09/16/2020 11:20 PM [facility] Bilirubin, UA Negative Negative 09/16/2020 11:20 PM [facility] Blood, UA Large (3+)(A) Negative 09/16/2020 11:20 PM [facility] Protein, UA >=300 mg/dL (3+)(A) Negative 09/16/2020 11:20 PM [facility] Leuk Esterase, UA Negative Negative 09/16/2020 11:20 PM [facility] Nitrite, UA Negative Negative 09/16/2020 11:20 PM [facility] Urobilinogen, UA 0.2 E.U./dL 0.2 - 1.0 E.U./dL 09/16/2020 11:20 PM [facility] Urine Urine specimen collection, clean catch / Unknown Collection / Unknown 09/16/2020 1:10 PM EST 09/16/2020 4:26 PM EST Adina Sands MD URINE ORDERABLES Final Re sult [facility]
[address] [place] [address], * (ABNORMAL) CBC Auto Differential (09/16/2020 1:10 PM EST) WBC 8.49 3.40 - 10.80 10*3/mm3 09/16/2020 6:15 PM [facility] RBC 4.28 3.77 - 5.28 10*6/mm3 09/16/2020 6:15 PM [facility] Hemoglobin 13.5 12.0 - 15.9 g/dL 09/16/2020 6:15 PM [facility] Hematocrit 40.3 34.0 - 46.6 % 09/16/2020 6:15 PM [facility] MCV 94.2 79.0 - 97.0 fL 09/16/2020 6:15 PM [facility] MCH 31.5 26.6 - 33.0 pg 09/16/2020 6:15 PM [facility] MCHC 33.5 31.5 - 35.7 g/dL 09/16/2020 6:15 PM [facility] RDW 12.0(L) 12.3 - 15.4 % 09/16/2020 6:15 PM [facility] RDW-SD 41.5 37.0 - 54.0 fl 09/16/2020 6:15 PM [facility] MPV 13.9(H) 6.0 - 12.0 fL 09/16/2020 6:15 PM [facility] Platelets 214 140 - 450 10*3/mm3 09/16/2020 6:15 PM [facility] Neutrophil % 62.6 42.7 - 76.0 % 09/16/2020 6:15 PM EST [facility] Lymphocyte % 28.4 19.6 - 45.3 % 09/16/2020 6:15 PM EST [facility] Monocyte % 4.8(L) 5.0 - 12.0 % 09/16/2020 6:15 PM EST [facility] Eosinophil % 3.3 0.3 - 6.2 % 09/16/2020 6:15 PM EST [facility] Basophil % 0.5 0.0 - 1.5 % 09/16/2020 6:15 PM EST [facility] Neutrophils, Absolute 5.32 1.70 - 7.00 10*3/mm3 09/16/2020 6:15 PM [facility] Lymphocytes, Absolute 2.41 0.70 - 3.10 10*3/mm3 09/16/2020 6:15 PM [facility] Monocytes, Absolute 0.41 0.10 - 0.90 10*3/mm3 09/16/2020 6:15 PM [facility] Eosinophils, Absolute 0.28 0.00 - 0.40 10*3/mm3 09/16/2020 6:15 PM [facility] Basophils, Absolute 0.04 0.00 - 0.20 10*3/mm3 09/16/2020 6:15 PM [facility] Blood Venipuncture / Unknown 09/16/2020 1:10 PM EST 09/16/2020 1:54 PM EST Adina Sands MD LAB BLOOD ORDERABLES Amy foreman Result [facility]
[address] [place] [address], * Vitamin D 25 Hydroxy (09/16/2020 1:10 PM EST) 25 Hydroxy, Vitamin D 22.9 ng/ml 09/16/2020 7:33 PM EST [facility] Blood Venipuncture / Unknown 09/16/2020 1:10 PM EST 09/16/2020 1:54 PM EST [facility] - 09/16/2020 7:33 PM EST Reference Range for Total Vitamin D 25(OH) Deficiency <20.0 ng/mL Insufficiency 21-29 ng/mL Sufficiency 30-100 ng/mL Toxicity >100 ng/ml Results may be falsely increased if patient taking Biotin. Adina Sands MD LAB BLOOD ORDERABLES Amy foreman Result [facility]
[address] [place] [address], * (ABNORMAL) Renal Function Panel (09/16/2020 1:10 PM EST) Glucose 107(H) 65 - 99 mg/dL 09/16/2020 6:39 PM [facility] BUN 34(H) 6 - 20 mg/dL 09/16/2020 6:39 PM [facility] Creatinine 3.08(H) 0.57 - 1.00 mg/dL 09/16/2020 6:39 PM [facility] Sodium 139 136 - 145 mmol/L 09/16/2020 6:39 PM [facility] Potassium 4.1 3.5 - 5.2 mmol/L 09/16/2020 6:39 PM [facility] Chloride 108(H) 98 - 107 mmol/L 09/16/2020 6:39 PM [facility] CO2 19.0(L) 22.0 - 29.0 mmol/L 09/16/2020 6:39 PM [facility] Calcium 8.7 8.6 - 10.5 mg/dL 09/16/2020 6:39 PM [facility] Albumin 4.00 3.50 - 5.20 g/dL 09/16/2020 6:39 PM [facility] Phosphorus 4.0 2.5 - 4.5 mg/dL 09/16/2020 6:39 PM EST [facility] Anion Gap 12.0 5.0 - 15.0 mmol/L 09/16/2020 6:39 PM EST [facility] BUN/Creatinine Ratio 11.0 7.0 - 25.0 09/16/2020 6:39 PM EST [facility] eGFR Non Amer 18(L) >60 mL/min/1.7 3 09/16/2020 6:39 PM EST [facility] Blood Venipuncture / Unknown 09/16/2020 1:10 PM EST 09/16/2020 1:53 PM EST [facility] - 09/16/2020 6:39 PM EST GFR Normal >60 Chronic Kidney Disease <60 Kidney Failure <15 Adina Sands MD LAB BLOOD ORDERABLES Amy l Result [facility]
[address] [place] [address], [place] [phone] * Protein, Urine, Random - Urine, Clean Catch (09/16/2020 1:10 PM EST) Total Protein, Urine 225.0 mg/dL 09/16/2020 11:47 PM EST [facility] Urine Urine specimen collection, clean catch / Unknown Collection / Unknown 09/16/2020 1:10 PM EST 09/16/2020 4:26 PM EST [facility] - 09/16/2020 11:47 PM EST Reference intervals for random urine have not been established. Clinical usage is dependent upon physician's interpretation in combination with other laboratory tests. us Adina Sands MD URINE ORDERABLES Final Re sult Performing Organization Address [facility]/ZIP Co de Phone Number [facility]
[address] [place] [address], [place] [phone] * (ABNORMAL) PTH, Intact (09/16/2020 1:10 PM EST) PTH, Intact 255.0(H) 15.0 - 65.0 pg/mL 09/16/2020 7:07 PM EST [facility] Blood Venipuncture / Unknown 09/16/2020 1:10 PM EST 09/16/2020 1:55 PM EST [facility] - 09/16/2020 7:07 PM EST Results may be falsely decreased if patient taking Biotin. us Adina Sands MD LAB BLOOD ORDERABLES Amy l Result Performing Organization Address City/[facility]/ZIP Co de Phone Number [facility]
[address] [place] [address], * Creatinine, Urine, Random - Urine, Clean Catch (09/16/2020 1:10 PM EST) Creatinine, Urine 75.8 mg/dL 09/16/2020 11:34 PM EST [facility] Urine Urine specimen collection, clean catch / Unknown Collection / Unknown 09/16/2020 1:10 PM EST 09/16/2020 4:26 PM EST [facility] - 09/16/2020 11:34 PM EST Reference intervals for random urine have not been established. Clinical usage is dependent upon physician's interpretation in combination with other laboratory tests. us Adina Sands MD URINE ORDERABLES Final Re sult [facility]
[address] [place] [address], documented in this encounter Visit Diagnoses Diagnosis Chronic kidney disease, stage V Chronic kidney disease, Stage V Vitamin D deficiency documented in this encounter Care Teams Centrifugal Spinner Relationship Specialty Start Date End Date Jaquan Conley MD [address] [place] [id number] PCP - General Internal Medicine 04/23/20 02/14/23 documented as of this encounter
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
--- OUTSIDE RECORDS SUMMARY | 2024-06-19 08:43 | XMS_ITS | Encounter Summary ---
[facility] Organization [facility] Address [address] [place] [id number] Care Team Providers Care Rn Child Name Role Phone Jaquan Conley MD Primary Care Provider [phone] [phone] Reason for Visit * Reason Comments Shoulder Pain Encounter Details Date Type Department Care Team (Late st Contact Info) Description 08/16/2020 1:37 PM EST - 08/16/2020 2:33 PM EST Emergency [facility] [address] [place] [address] Jaquan Arenas, DO Strain of latissimus [...] sent through Care Everywhere. * Muscle Strain (Bangladeshi) documented in this encounter Medications at Time [...] 240 tablet 1 06/14/2018 Vitamin D, Ergocalciferol, 10016 units capsule 50,000 Int'l Units. 06/03/2020 acetaminophen [...] of the pain. History provided by: Patient charcoal kiln burner used: No Review of Systems Musculoskeletal: Right [...] For this patient encounter, I reviewed the CIGARETTE VENDOR or PA documentation, treatment plan, and medical decision making. Jaquan Arenas DO 08/16/2020 14:17 EST documented in this encounter Plan of Treatment Not on file documented as of this encounter Visit Diagnoses Diagnosis Strain of latissimus dorsi muscle, initial encounter- Primary documented in this encounter Care Teams Rn Child Relationship Specialty Start Date End Date Jaquan Conley MD [address] [place] [address] PCP - General Internal Medicine 04/23/20 02/14/23 documented as of this encounter
--- OUTSIDE RECORDS SUMMARY | 2024-06-19 08:43 | XMS_ITS | Encounter Summary ---
[facility] Organization [facility] Address [address] [place] [address] Care Team Providers Care Manager Drug Name Role Phone Jaquan Conley MD Primary Care Provider [phone] [phone] Encounter Details Date Type Department Care Team (Late st Contact Info) Description 07/14/2020 2:25 PM EST Lab [facility] [address] [place] [address] Chronic kidney disease, stage V; [...] Seen, 0-2 /HPF 07/14/2020 11:30 PM EST [facility] WBC, UA 13-20(A) None Seen, 0-2 /HPF 07/14/2020 11:30 PM EST [facility] Bacteria, UA 2+(A) None Seen /HPF 07/14/2020 11:30 PM EST [facility] Squamous Epithelial Cells, UA 0-2 None Seen, 0-2 /HPF 07/14/2020 11:30 PM EST [facility] Hyaline Casts, UA 0-2 None Seen /LPF 07/14/2020 11:30 PM EST [facility] Methodology Automated Microscopy 07/14/2020 11:30 PM EST [facility] Urine Urine specimen collection, clean catch / Unknown Collection / Unknown 07/14/2020 2:52 PM EST 07/14/2020 4:47 PM EST Adina Sands MD URINE ORDERABLES Final Re sult Performing Organization Address [facility]/ZIP Co de Phone Number [facility]
[address] [place] [address], * (ABNORMAL) Urinalysis without microscopic (no culture) - Urine, Clean Catch (07/14/2020 2:52 PM EST) Color, UA Yellow Yellow, Straw 07/14/2020 11:00 PM [facility] Appearance, UA Clear Clear 07/14/2020 11:00 PM [facility] pH, UA 6.0 5.0 - 8.0 07/14/2020 11:00 PM [facility] Specific [place], UA 1.013 1.005 - 1.030 07/14/2020 11:00 PM [facility] Glucose, UA Negative Negative 07/14/2020 11:00 PM [facility] Ketones, UA Negative Negative 07/14/2020 11:00 PM [facility] Bilirubin, UA Negative Negative 07/14/2020 11:00 PM [facility] Blood, UA Trace(A) Negative 07/14/2020 11:00 PM [facility] Protein, UA >=300 mg/dL (3+)(A) Negative 07/14/2020 11:00 PM [facility] Leuk Esterase, UA Trace(A) Negative 07/14/2020 11:00 PM [facility] Nitrite, UA Negative Negative 07/14/2020 11:00 PM [facility] Urobilinogen, UA 0.2 E.U./dL 0.2 - 1.0 E.U./dL 07/14/2020 11:00 PM [facility] Urine Urine specimen collection, clean catch / Unknown Collection / Unknown 07/14/2020 2:52 PM EST 07/14/2020 4:47 PM EST Adina Sands MD URINE ORDERABLES Final Re sult Performing Organization Address [facility]/ZIP Co de Phone Number [facility]
[address] [place] [address], * (ABNORMAL) CBC Auto Differential (07/14/2020 2:52 PM EST) WBC 6.81 3.40 - 10.80 10*3/mm3 07/14/2020 10:56 PM [facility] RBC 4.16 3.77 - 5.28 10*6/mm3 07/14/2020 10:56 PM [facility] Hemoglobin 13.1 12.0 - 15.9 g/dL 07/14/2020 10:56 PM [facility] Hematocrit 40.0 34.0 - 46.6 % 07/14/2020 10:56 PM [facility] MCV 96.2 79.0 - 97.0 fL 07/14/2020 10:56 PM [facility] MCH 31.5 26.6 - 33.0 pg 07/14/2020 10:56 PM [facility] MCHC 32.8 31.5 - 35.7 g/dL 07/14/2020 10:56 PM [facility] RDW 12.1(L) 12.3 - 15.4 % 07/14/2020 10:56 PM [facility] RDW-SD 43.2 37.0 - 54.0 fl 07/14/2020 10:56 PM [facility] MPV 13.8(H) 6.0 - 12.0 fL 07/14/2020 10:56 PM [facility] Platelets 198 140 - 450 10*3/mm3 07/14/2020 10:56 PM [facility] Neutrophil % 60.0 42.7 - 76.0 % 07/14/2020 10:56 PM [facility] Lymphocyte % 28.9 19.6 - 45.3 % 07/14/2020 10:56 PM [facility] Monocyte % 5.4 5.0 - 12.0 % 07/14/2020 10:56 PM [facility] Eosinophil % 5.0 0.3 - 6.2 % 07/14/2020 10:56 PM [facility] Basophil % 0.6 0.0 - 1.5 % 07/14/2020 10:56 PM [facility] Immature Grans % 0.1 0.0 - 0.5 % 07/14/2020 10:56 PM [facility] Neutrophils, Absolute 4.08 1.70 - 7.00 10*3/mm3 07/14/2020 10:56 PM [facility] Lymphocytes, Absolute 1.97 0.70 - 3.10 10*3/mm3 07/14/2020 10:56 PM [facility] Monocytes, Absolute 0.37 0.10 - 0.90 10*3/mm3 07/14/2020 10:56 PM [facility] Eosinophils, Absolute 0.34 0.00 - 0.40 10*3/mm3 07/14/2020 10:56 PM [facility] Basophils, Absolute 0.04 0.00 - 0.20 10*3/mm3 07/14/2020 10:56 PM [facility] Immature Grans, Absolute 0.01 0.00 - 0.05 10*3/mm3 07/14/2020 10:56 PM [facility] nRBC 0.1 0.0 - 0.2 /100 WBC 07/14/2020 10:56 PM [facility] Blood Venipuncture / Unknown 07/14/2020 2:52 PM EST 07/14/2020 3:25 PM EST us Adina Sands MD LAB BLOOD ORDERABLES Amy foreman Result [facility]
[address] [place] [address], * (ABNORMAL) Iron Profile (07/14/2020 2:52 PM EST) Pathologist [facility] Iron 77 37 - 145 mcg/dL 07/14/2020 11:45 PM EST [facility] Iron Saturation (TSAT) 27 20 - 50 % 07/14/2020 11:45 PM EST [facility] Transferrin 190(L) 200 - 360 mg/dL 07/14/2020 11:45 PM EST [facility] TIBC 283(L) 298 - 536 mcg/dL 07/14/2020 11:45 PM EST [facility] Blood Venipuncture / Unknown 07/14/2020 2:52 PM EST 07/14/2020 3:25 PM EST Adina Sands MD LAB BLOOD ORDERABLES Amy l Result Performing Organization Address [facility]/ZIP Co de Phone Number [facility]
[address] [place] [address], * Protein, Urine, Random - Urine, Clean Catch (07/14/2020 2:52 PM EST) Total Protein, Urine 179.0 mg/dL 07/14/2020 11:16 PM EST [facility] Urine Urine specimen collection, clean catch / Unknown Collection / Unknown 07/14/2020 2:52 PM EST 07/14/2020 4:47 PM EST Narrative [facility] - 07/14/2020 11:16 PM EST Reference intervals for random urine have not been established. Clinical usage is dependent upon physician's interpretation in combination with other laboratory tests. Adina Sands MD URINE ORDERABLES Final Re sult Performing Organization Address [facility]/ZIP Co de Phone Number [facility]
[address] [place] [address], * Creatinine, Urine, Random - Urine, Clean Catch (07/14/2020 2:52 PM EST) Creatinine, Urine 91.7 mg/dL 07/14/2020 11:16 PM EST [facility] Urine Urine specimen collection, clean catch / Unknown Collection / Unknown 07/14/2020 2:52 PM EST 07/14/2020 4:47 PM EST Narrative [facility] - 07/14/2020 11:16 PM EST Reference intervals for random urine have not been established. Clinical usage is dependent upon physician's interpretation in combination with other laboratory tests. Adina Sands MD URINE ORDERABLES Final Re sult [facility]
[address] [place] [address], * (ABNORMAL) Renal Function Panel (07/14/2020 2:52 PM EST) Glucose 139(H) 65 - 99 mg/dL 07/14/2020 11:45 PM EST [facility] BUN 25(H) 6 - 20 mg/dL 07/14/2020 11:45 PM [facility] Creatinine 3.03(H) 0.57 - 1.00 mg/dL 07/14/2020 11:45 PM EST [facility] Sodium 140 136 - 145 mmol/L 07/14/2020 11:45 PM [facility] Potassium 4.4 3.5 - 5.2 mmol/L 07/14/2020 11:45 PM [facility] Chloride 110(H) 98 - 107 mmol/L 07/14/2020 11:45 PM [facility] CO2 21.5(L) 22.0 - 29.0 mmol/L 07/14/2020 11:45 PM EST [facility] Calcium 9.1 8.6 - 10.5 mg/dL 07/14/2020 11:45 PM [facility] Albumin 4.10 3.50 - 5.20 g/dL 07/14/2020 11:45 PM [facility] Phosphorus 3.0 2.5 - 4.5 mg/dL 07/14/2020 11:45 PM [facility] Anion Gap 8.5 5.0 - 15.0 mmol/L 07/14/2020 11:45 PM [facility] BUN/Creatinine Ratio 8.3 7.0 - 25.0 07/14/2020 11:45 PM EST [facility] eGFR Non Amer 18(L) >60 mL/min/1.7 3 07/14/2020 11:45 PM EST [facility] Blood Venipuncture / Unknown 07/14/2020 2:52 PM EST 07/14/2020 3:25 PM EST Narrative [facility] - 07/14/2020 11:45 PM EST GFR Normal >60 Chronic Kidney Disease <60 Kidney Failure <15 Adina Sands MD LAB BLOOD ORDERABLES Amy l Result [facility]
[address] [place] [address], documented in this encounter Visit Diagnoses Diagnosis Chronic kidney disease, stage V Chronic kidney disease, Stage V Diabetes mellitus without complication Type II or unspecified type diabetes mellitus without mention of complication, not stated as uncontrolled Anemia, unspecified type documented in this encounter Care Teams Manager Drug Relationship Specialty Start Date End Date Jaquan Conley MD [address] [place] [id number] PCP - General Internal Medicine 04/23/20 02/14/23 documented as of this encounter
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
--- OUTSIDE RECORDS SUMMARY | 2024-06-19 08:43 | XMS_ITS | Encounter Summary ---
[facility] Address [address] [place] [address] Care Team Providers Care Central Service Supply Distributor Name Role Phone Jaquan Conley MD Primary Care Provider [phone] Encounter Details Date Type Department Care Team (Late st Contact Info) Description 12/02/2020 10:20 AM EDT Lab [facility] [address] [place] [address] Chronic kidney disease, stage IV [...] No growth KIRA 12/03/2020 4:17 PM EDT [facility] Urine Urine specimen collection, clean catch / Unknown Collection / Unknown 12/02/2020 10:18 AM EDT 12/02/2020 11:18 AM EDT us Mare Kapoor HR ASSOCIATE MICROBIOLOGY - GENERAL ORDERABL ES Final Result [facility]
[address] [place] [address], documented in this encounter Visit Diagnoses Diagnosis Chronic kidney disease, stage IV (severe) Chronic kidney disease, Stage IV (severe) documented in this encounter Care Teams Central Service Supply Distributor Relationship Specialty Start Date End Date Jaquan Conley MD [address] [place] [address] PCP - General Internal Medicine 04/23/20 02/14/23 documented as of this encounter
--- OUTSIDE RECORDS SUMMARY | 2024-06-19 08:43 | XMS_ITS | Encounter Summary ---
[facility] Address [address] [place] [id number] Care Team Providers Care Sheriff Detective Name Role Phone Jaquan Conley MD Primary Care Provider [phone] [phone] Reason for Visit * Reason Comments Hand Injury Encounter Details Date Type Department Care Team (Late st Contact Info) Description 05/31/2020 7:40 PM EST - 05/31/2020 9:23 PM EST Emergency [facility] EM[facility] [address] [place] [phone] Jaquan Arenas, DO Contusion of right [...] sent through Care Everywhere. * Hand Contusion (Greenlandic) documented in this encounter Medications at [...] CARDIOVASCULAR: Good Peripheral pulses. Good capillary refill. [place] and warm extremities. MUSCULOSKELETAL: No compartment syndrome. [...] Laterality Modality Upper Extremities, Hand Right [facility] 06/01/2020 6:43 AM EST Impressions [...] encounter documented in this encounter Care Teams Sheriff Detective Relationship Specialty Start Date End Date Jaquan Conley MD [address] [place], [place] [phone] PCP - General Internal Medicine 04/23/20 02/14/23 documented as of this encounter
--- OUTSIDE RECORDS SUMMARY | 2024-06-19 08:43 | XMS_ITS | Encounter Summary ---
Author Organization [facility] Address [address] [place] [address] Care Team Providers Care Mailhouse Operator Name Role Phone Unavailable Primary Care Provider Unavailabl e Reason for Visit * Reason Comments Finger Injury Encounter Details Date Type Department Care Team (Late st Contact Info) Description 04/08/2020 2:54 PM EDT - 04/08/2020 3:29 PM EDT Emergency [facility] [address] [place] [phone] Jaquan Arenas, Contusion of left little [...] ??? 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 INDUCED 2006 [facility] [...] For this patient encounter, I reviewed the STABLEHAND or PA documentation, treatment plan, and medical [...]
--- OUTSIDE RECORDS SUMMARY | 2024-06-19 08:43 | XMS_ITS | Encounter Summary ---
[facility] Address [address] [place] [address] Care Team Providers Care Supervisor Fiber Locking Name Role Phone Unavailable Primary Care Provider Unavailabl e Encounter Details Date Type Department Care Team (Late st Contact Info) Description 02/21/2020 3:10 PM EDT Lab [facility] [address] [place] [address] CKD stage G5/A3, GFR <15 [...] Seen, 0-2 /HPF 02/21/2020 10:57 PM EDT [facility] WBC, UA 31-50(A) None Seen, 0-2 /HPF 02/21/2020 10:57 PM EDT [facility] Bacteria, UA 2+(A) None Seen /HPF 02/21/2020 10:57 PM EDT [facility] Squamous Epithelial Cells, UA 0-2 None Seen, 0-2 /HPF 02/21/2020 10:57 PM EDT [facility] Hyaline Casts, UA 3-6 None Seen /LPF 02/21/2020 10:57 PM EDT [facility] Methodology Automated Microscopy 02/21/2020 10:57 PM EDT [facility] Urine Urine specimen collection, clean catch / Unknown Collection / Unknown 02/21/2020 3:36 PM EDT 02/21/2020 4:27 PM EDT us Mukul Stevens MD URINE ORDERABLES Final Result [facility]
[address] [place] [address], [place] [phone] * (ABNORMAL) Urinalysis without microscopic (no culture) - Urine, Clean Catch (02/21/2020 3:36 PM EDT) Color, UA Yellow Yellow, Straw 02/21/2020 10:51 PM EDT [facility] Appearance, UA Cloudy(A) Clear 02/21/2020 10:51 PM EDT [facility] pH, UA 6.0 5.0 - 8.0 02/21/2020 10:51 PM EDT [facility] Specific [place], UA 1.013 1.005 - 1.030 02/21/2020 10:51 PM EDT [facility] Glucose, UA Negative Negative 02/21/2020 10:51 PM EDT [facility] Ketones, UA Negative Negative 02/21/2020 10:51 PM EDT [facility] Bilirubin, UA Negative Negative 02/21/2020 10:51 PM EDT [facility] Blood, UA Negative Negative 02/21/2020 10:51 PM EDT [facility] Protein, UA >=300 mg/dL (3+)(A) Negative 02/21/2020 10:51 PM EDT [facility] Leuk Esterase, UA Trace(A) Negative 02/21/2020 10:51 PM EDT [facility] Nitrite, UA Negative Negative 02/21/2020 10:51 PM EDT [facility] Urobilinogen, UA 0.2 E.U./dL 0.2 - 1.0 E.U./dL 02/21/2020 10:51 PM EDT [facility] Urine Urine specimen collection, clean catch / Unknown Collection / Unknown 02/21/2020 3:36 PM EDT 02/21/2020 4:27 PM EDT us Mukul Stevens MD URINE ORDERABLES Final Result [facility]
[address] [place] [address], [place] [phone] * (ABNORMAL) CBC Auto Differential (02/21/2020 3:36 PM EDT) [facility] Signature WBC 7.41 3.40 - 10.80 10*3/mm3 02/21/2020 11:40 PM EDT [facility] RBC 4.12 3.77 - 5.28 10*6/mm3 02/21/2020 11:40 PM EDT [facility] Hemoglobin 12.4 12.0 - 15.9 g/dL 02/21/2020 11:40 PM EDT [facility] Hematocrit 36.9 34.0 - 46.6 % 02/21/2020 11:40 PM EDT [facility] MCV 89.6 79.0 - 97.0 fL 02/21/2020 11:40 PM EDT [facility] MCH 30.1 26.6 - 33.0 pg 02/21/2020 11:40 PM EDT [facility] MCHC 33.6 31.5 - 35.7 g/dL 02/21/2020 11:40 PM EDT [facility] RDW 13.5 12.3 - 15.4 % 02/21/2020 11:40 PM EDT [facility] RDW-SD 44.7 37.0 - 54.0 fl 02/21/2020 11:40 PM EDT [facility] MPV 13.8(H) 6.0 - 12.0 fL 02/21/2020 11:40 PM EDT [facility] Platelets 172 140 - 450 10*3/mm3 02/21/2020 11:40 PM EDT [facility] Neutrophil % 51.4 42.7 - 76.0 % 02/21/2020 11:40 PM EDT [facility] Lymphocyte % 38.3 19.6 - 45.3 % 02/21/2020 11:40 PM EDT [facility] Monocyte % 6.9 5.0 - 12.0 % 02/21/2020 11:40 PM EDT [facility] Eosinophil % 2.7 0.3 - 6.2 % 02/21/2020 11:40 PM EDT [facility] Basophil % 0.4 0.0 - 1.5 % 02/21/2020 11:40 PM EDT [facility] Neutrophils, Absolute 3.81 1.70 - 7.00 10*3/mm3 02/21/2020 11:40 PM EDT [facility] Lymphocytes, Absolute 2.84 0.70 - 3.10 10*3/mm3 02/21/2020 11:40 PM EDT [facility] Monocytes, Absolute 0.51 0.10 - 0.90 10*3/mm3 02/21/2020 11:40 PM EDT [facility] Eosinophils, Absolute 0.20 0.00 - 0.40 10*3/mm3 02/21/2020 11:40 PM EDT [facility] Basophils, Absolute 0.03 0.00 - 0.20 10*3/mm3 02/21/2020 11:40 PM EDT [facility] Blood Venipuncture / Unknown 02/21/2020 3:36 PM EDT 02/21/2020 4:36 PM EDT Mukul Stevens MD LAB BLOOD ORDERABLES F inal Result [facility]
[address] [place] [address], * (ABNORMAL) Renal Function Panel (02/21/2020 3:36 PM EDT) Glucose 53(L) 65 - 99 mg/dL 02/21/2020 11:14 PM EDT [facility] BUN 23(H) 6 - 20 mg/dL 02/21/2020 11:14 PM EDT [facility] Creatinine 3.58(H) 0.57 - 1.00 mg/dL 02/21/2020 11:14 PM EDT [facility] Sodium 140 136 - 145 mmol/L 02/21/2020 11:14 PM EDT [facility] Potassium 4.8 3.5 - 5.2 mmol/L 02/21/2020 11:14 PM EDT [facility] Chloride 110(H) 98 - 107 mmol/L 02/21/2020 11:14 PM EDT [facility] CO2 19.9(L) 22.0 - 29.0 mmol/L 02/21/2020 11:14 PM EDT [facility] Calcium 9.6 8.6 - 10.5 mg/dL 02/21/2020 11:14 PM EDT [facility] Albumin 4.00 3.50 - 5.20 g/dL 02/21/2020 11:14 PM EDT [facility] Phosphorus 3.1 2.5 - 4.5 mg/dL 02/21/2020 11:14 PM EDT [facility] Anion Gap 10.1 5.0 - 15.0 mmol/L 02/21/2020 11:14 PM EDT [facility] BUN/Creatinine Ratio 6.4(L) 7.0 - 25.0 02/21/2020 11:14 PM EDT [facility] eGFR Non Amer 15(L) >60 mL/min/1.7 3 02/21/2020 11:14 PM EDT [facility] Blood Venipuncture / Unknown 02/21/2020 3:36 PM EDT 02/21/2020 4:38 PM EDT Narrative [facility] - 02/21/2020 11:14 PM EDT GFR Normal >60 Chronic Kidney Disease <60 Kidney Failure <15 Mukul Stevens MD LAB BLOOD ORDERABLES F inal Result [facility]
[address] [place] [address], documented in this encounter Visit Diagnoses Diagnosis CKD stage G5/A3, GFR <15 and albumin creatinine ratio >300 mg/g documented in this encounter
--- OUTSIDE RECORDS SUMMARY | 2024-06-19 08:43 | XMS_ITS | Encounter Summary ---
[facility] [address] [place] [id number] Care Team Providers Care Roving Teller Name Role Phone Jaquan Conley MD Primary Care Provider [phone] Reason for Visit * Reason Comments Vomiting Encounter Details Date Type Department Care Team (Late st Contact Info) Description 09/24/2020 12:09 PM EST - 09/24/2020 3:19 PM EST Emergency [facility] [address] [place] [address] Phill Gama, DO [address] [place] [address] Non-intractable vomiting with nausea, unspecified [...] Care Everywhere. * Nausea and Vomiting Adult [id number] (Nauruan) documented in this encounter Medications at [...] 240 tablet 1 06/14/2018 Vitamin D, Ergocalciferol, 60704 units capsule 50,000 Int'l Units. 06/03/2020 acetaminophen [...] SLEEVE LAPAROSCOPIC ??? INDUCED 2006 [facility] History reviewed. No pertinent family history. [...] Condition Comment Discharge Stable Jaquan Conley MD [address] [place], [place] [id number] Where to Get Your Medications These medications were sent to [facility]/pharmacy #[id number] - [place], [place] - [address] [place] [address] - [phone] - [phone] [address] ?? promethazine 12.5 MG tablet Medication List No changes were made to your prescriptions during this visit. Phill Gama DO 10/03/20 2324 documented in this encounter Plan of Treatment [...] Scan Slide (09/24/2020 12:10 PM EST) Pathologist [facility] RBC Morphology Normal Normal 09/24/2020 12:49 PM EST [facility] WBC Morphology Normal Normal 09/24/2020 12:49 PM EST [facility] Platelet Estimate Adequate Normal 09/24/2020 12:49 PM EST [facility] Blood Venipuncture / Unknown 09/24/2020 12:10 PM EST 09/24/2020 12:12 PM EST us Phill Gama DO LAB BLOOD ORDERABLES Final Res ult [facility]
[address] [place] [id number], * (ABNORMAL) CBC Auto Differential (09/24/2020 12:10 PM EST) Pathologist [facility] WBC 11.87(H) 3.40 - 10.80 10*3/mm3 09/24/2020 12:49 PM EST [facility] RBC 4.15 3.77 - 5.28 10*6/mm3 09/24/2020 12:49 PM EST [facility] Hemoglobin 13.1 12.0 - 15.9 g/dL 09/24/2020 12:49 PM EST [facility] Hematocrit 38.6 34.0 - 46.6 % 09/24/2020 12:49 PM EST [facility] MCV 93.0 79.0 - 97.0 fL 09/24/2020 12:49 PM [facility] MCH 31.6 26.6 - 33.0 pg 09/24/2020 12:49 PM [facility] MCHC 33.9 31.5 - 35.7 g/dL 09/24/2020 12:49 PM [facility] RDW 11.9(L) 12.3 - 15.4 % 09/24/2020 12:49 PM [facility] RDW-SD 41.4 37.0 - 54.0 fl 09/24/2020 12:49 PM [facility] MPV 13.1(H) 6.0 - 12.0 fL 09/24/2020 12:49 PM [facility] Platelets 226 140 - 450 10*3/mm3 09/24/2020 12:49 PM [facility] Neutrophil % 57.4 42.7 - 76.0 % 09/24/2020 12:49 PM [facility] Lymphocyte % 33.9 19.6 - 45.3 % 09/24/2020 12:49 PM [facility] Monocyte % 5.6 5.0 - 12.0 % 09/24/2020 12:49 PM [facility] Eosinophil % 2.4 0.3 - 6.2 % 09/24/2020 12:49 PM [facility] Basophil % 0.4 0.0 - 1.5 % 09/24/2020 12:49 PM [facility] Immature Grans % 0.3 0.0 - 0.5 % 09/24/2020 12:49 PM [facility] Neutrophils, Absolute 6.81 1.70 - 7.00 10*3/mm3 09/24/2020 12:49 PM [facility] Lymphocytes, Absolute 4.02(H) 0.70 - 3.10 10*3/mm3 09/24/2020 12:49 PM [facility] Monocytes, Absolute 0.67 0.10 - 0.90 10*3/mm3 09/24/2020 12:49 PM [facility] Eosinophils, Absolute 0.29 0.00 - 0.40 10*3/mm3 09/24/2020 12:49 PM EST [facility] Basophils, Absolute 0.05 0.00 - 0.20 10*3/mm3 09/24/2020 12:49 PM EST [facility] Immature Grans, Absolute 0.03 0.00 - 0.05 10*3/mm3 09/24/2020 12:49 PM EST [facility] nRBC 0.0 0.0 - 0.2 /100 WBC 09/24/2020 12:49 PM EST [facility] Blood Venipuncture / Unknown 09/24/2020 12:10 PM EST 09/24/2020 12:12 PM EST [employer] LAB BLOOD ORDERABLES Final Res ult [facility]
[address] [place] [address], [place] [phone] * Gold Top - SST (09/24/2020 12:10 PM EST) Extra Tube Hold for add-ons. 09/24/2020 1:15 PM EST [facility] Comment:Auto resulted. Blood Venipuncture / Unknown 09/24/2020 12:10 PM EST 09/24/2020 12:12 PM EST [employer] LAB BLOOD ORDER ONLY Final Res ult [facility]
[address] [place] [address], [place] [phone] * Lavender Top (09/24/2020 12:10 PM EST) Extra Tube hold for add-on 09/24/2020 1:15 PM EST [facility] Comment:Auto resulted Blood Venipuncture / Unknown 09/24/2020 12:10 PM EST 09/24/2020 12:12 PM EST Phillabi Gama LAB BLOOD ORDER ONLY Final Res ult Performing Organization Address City/[facility]/ZIP Co de Phone Number [facility]
[address] [place] [address], [place] [phone] * Green Top (Gel) (09/24/2020 12:10 PM EST) Extra Tube Hold for add-ons. 09/24/2020 1:15 PM EST [facility] Comment:Auto resulted. Blood Venipuncture / Unknown 09/24/2020 12:10 PM EST 09/24/2020 12:12 PM EST Phillabi Gama LAB BLOOD ORDER ONLY Final Res ult Performing Organization Address [facility]/ZIP Co de Phone Number [facility]
[address] [place] [address], [place] [phone] * Light Blue Top (09/24/2020 12:10 PM EST) Extra Tube hold for add-on 09/24/2020 1:15 PM EST [facility] Comment:Auto resulted Blood Venipuncture / Unknown 09/24/2020 12:10 PM EST 09/24/2020 12:12 PM EST Phillabi Gama LAB BLOOD ORDER ONLY Final Res ult Performing Organization Address City/[facility]/ZIP Co de Phone Number [facility]
[address] [place] [address], [place] [phone] * Lipase (09/24/2020 12:10 PM EST) Lipase 22 13 - 60 U/L 09/24/2020 12:38 PM EST [facility] Blood Venipuncture / Unknown 09/24/2020 12:10 PM EST 09/24/2020 12:12 PM EST us Phill Gama DO LAB BLOOD ORDERABLES Final Res ult [facility]
[address] [place] [id number], * (ABNORMAL) Comprehensive Metabolic Panel (09/24/2020 12:10 PM EST) Glucose 48(LL) 65 - 99 mg/dL 09/24/2020 12:49 PM EST [facility] BUN 45(H) 6 - 20 mg/dL 09/24/2020 12:49 PM [facility] Creatinine 3.71(H) 0.57 - 1.00 mg/dL 09/24/2020 12:49 PM [facility] Sodium 139 136 - 145 mmol/L 09/24/2020 12:49 PM [facility] Potassium 4.4 3.5 - 5.2 mmol/L 09/24/2020 12:49 PM [facility] Chloride 114(H) 98 - 107 mmol/L 09/24/2020 12:49 PM [facility] CO2 15.5(L) 22.0 - 29.0 mmol/L 09/24/2020 12:49 PM [facility] Calcium 8.5(L) 8.6 - 10.5 mg/dL 09/24/2020 12:49 PM [facility] Total Protein 6.0 6.0 - 8.5 g/dL 09/24/2020 12:49 PM [facility] Albumin 3.70 3.50 - 5.20 g/dL 09/24/2020 12:49 PM EST [facility] ALT (SGPT) 7 1 - 33 U/L 09/24/2020 12:49 PM [facility] AST (SGOT) 8 1 - 32 U/L 09/24/2020 12:49 PM [facility] Alkaline Phosphatase 112 39 - 117 U/L 09/24/2020 12:49 PM EST [facility] Total Bilirubin 0.2 0.0 - 1.2 mg/dL 09/24/2020 12:49 PM EST [facility] eGFR Non Amer 14(L) >60 mL/min/1.7 3 09/24/2020 12:49 PM EST [facility] Comment:<15 Indicative of ki dney failure. eGFR Amer 09/24/2020 12:49 PM EST [facility] Comment:<15 Indicative of ki dney failure. Globulin 2.3 gm/dL 09/24/2020 12:49 PM EST [facility] A/G Ratio 1.6 g/dL 09/24/2020 12:49 PM EST [facility] BUN/Creatinine Ratio 12.1 7.0 - 25.0 09/24/2020 12:49 PM [facility] Anion Gap 9.5 5.0 - 15.0 mmol/L 09/24/2020 12:49 PM [facility] Blood Venipuncture / Unknown 09/24/2020 12:10 PM EST 09/24/2020 12:12 PM EST Narrative [facility] - 09/24/2020 12:49 PM EST GFR Normal >60 Chronic Kidney Disease <60 Kidney Failure <15 us Phill Gama DO LAB BLOOD ORDERABLES Final Res ult [facility]
[address] [place] [id number], documented in this encounter Visit Diagnoses Diagnosis [...] 1208 documented in this encounter Care Teams Roving Teller Relationship Specialty Start Date End Date Jaquan Conley MD [address] [place], [place] [phone] PCP - General Internal Medicine 04/23/20 02/14/23 documented as of this encounter
--- OUTSIDE RECORDS SUMMARY | 2024-06-19 08:43 | XMS_ITS | Encounter Summary ---
[facility] Address [address] [place] [address] Care Team Providers Care Poultry Dresser Name Role Phone Jaquan Conley MD Primary Care Provider [phone] Encounter Details Date Type Department Care Team (Late st Contact Info) Description 04/23/2020 10:25 AM EDT Lab [facility] [address] [place] [address] Chronic kidney disease, stage V [...] Seen, 0-2 /HPF 04/23/2020 6:42 PM EDT [facility] WBC, UA 0-2 None Seen, 0-2 /HPF 04/23/2020 6:42 PM EDT [facility] Bacteria, UA 2+(A) None Seen /HPF 04/23/2020 6:42 PM EDT [facility] Squamous Epithelial Cells, UA 3-6(A) None Seen, 0-2 /HPF 04/23/2020 6:42 PM EDT [facility] Hyaline Casts, UA 0-2 None Seen /LPF 04/23/2020 6:42 PM EDT [facility] Methodology Automated Microscopy 04/23/2020 6:42 PM EDT [facility] Urine Urine specimen collection, clean catch / Unknown Collection / Unknown 04/23/2020 10:33 AM EDT 04/23/2020 11:13 AM EDT us Mukul Stevens MD URINE ORDERABLES Final Result [facility]
[address] [place] [address], * (ABNORMAL) Urinalysis without microscopic (no culture) - Urine, Clean Catch (04/23/2020 10:33 AM EDT) Color, UA Yellow Yellow, Straw 04/23/2020 6:36 PM EDT [facility] Appearance, UA Clear Clear 04/23/2020 6:36 PM EDT [facility] pH, UA 5.5 5.0 - 8.0 04/23/2020 6:36 PM EDT [facility] Specific [place], UA 1.012 1.005 - 1.030 04/23/2020 6:36 PM EDT [facility] Glucose, UA Negative Negative 04/23/2020 6:36 PM EDT [facility] Ketones, UA Negative Negative 04/23/2020 6:36 PM EDT [facility] Bilirubin, UA Negative Negative 04/23/2020 6:36 PM EDT [facility] Blood, UA Negative Negative 04/23/2020 6:36 PM EDT [facility] Protein, UA >=300 mg/dL (3+)(A) Negative 04/23/2020 6:36 PM EDT [facility] Leuk Esterase, UA Negative Negative 04/23/2020 6:36 PM EDT [facility] Nitrite, UA Negative Negative 04/23/2020 6:36 PM EDT [facility] Urobilinogen, UA 0.2 E.U./dL 0.2 - 1.0 E.U./dL 04/23/2020 6:36 PM EDT [facility] Urine Urine specimen collection, clean catch / Unknown Collection / Unknown 04/23/2020 10:33 AM EDT 04/23/2020 11:13 AM EDT us Mukul Stevens MD URINE ORDERABLES Final Result [facility]
[address] [place] [address], * (ABNORMAL) Vitamin D 25 Hydroxy (04/23/2020 10:33 AM EDT) 25 Hydroxy, Vitamin D 29.5(L) 30.0 - 100.0 ng/ml 04/23/2020 7:00 PM EDT [facility] Blood Venipuncture / Unknown 04/23/2020 10:33 AM EDT 04/23/2020 10:50 AM EDT Narrative [facility] - 04/23/2020 7:00 PM EDT Reference Range for Total Vitamin D 25(OH) Deficiency <20.0 ng/mL Insufficiency 21-29 ng/mL Sufficiency 30-100 ng/mL Toxicity >100 ng/ml Results may be falsely increased if patient taking Biotin. Mukul Stevens MD LAB BLOOD ORDERABLES F inal Result [facility]
[address] [place] [address], * (ABNORMAL) Renal Function Panel (04/23/2020 10:33 AM EDT) [facility] Glucose 79 65 - 99 mg/dL 04/23/2020 7:08 PM EDT [facility] BUN 32(H) 6 - 20 mg/dL 04/23/2020 7:08 PM EDT [facility] Creatinine 3.92(H) 0.57 - 1.00 mg/dL 04/23/2020 7:08 PM EDT [facility] Sodium 142 136 - 145 mmol/L 04/23/2020 7:08 PM EDT [facility] Potassium 4.9 3.5 - 5.2 mmol/L 04/23/2020 7:08 PM EDT [facility] Chloride 111(H) 98 - 107 mmol/L 04/23/2020 7:08 PM EDT [facility] CO2 20.8(L) 22.0 - 29.0 mmol/L 04/23/2020 7:08 PM EDT [facility] Calcium 9.0 8.6 - 10.5 mg/dL 04/23/2020 7:08 PM EDT [facility] Albumin 4.10 3.50 - 5.20 g/dL 04/23/2020 7:08 PM EDT [facility] Phosphorus 3.9 2.5 - 4.5 mg/dL 04/23/2020 7:08 PM EDT [facility] Anion Gap 10.2 5.0 - 15.0 mmol/L 04/23/2020 7:08 PM EDT [facility] BUN/Creatinine Ratio 8.2 7.0 - 25.0 04/23/2020 7:08 PM EDT [facility] eGFR Non Amer 13(L) >60 mL/min/1.7 3 04/23/2020 7:08 PM EDT [facility] Comment:<15 Indicative of ki dney failure. eGFR Amer 04/23/2020 7:08 PM EDT [facility] Comment:<15 Indicative of ki dney failure. Blood Venipuncture / Unknown 04/23/2020 10:33 AM EDT 04/23/2020 10:50 AM EDT Narrative [facility] - 04/23/2020 7:08 PM EDT GFR Normal >60 Chronic Kidney Disease <60 Kidney Failure <15 Mukul Stevens MD LAB BLOOD ORDERABLES F inal Result [facility]
[address] [place] [address], * Protein, Urine, Random - Urine, Clean Catch (04/23/2020 10:33 AM EDT) Total Protein, Urine 138.0 mg/dL 04/23/2020 7:38 PM EDT [facility] Urine Urine specimen collection, clean catch / Unknown Collection / Unknown 04/23/2020 10:33 AM EDT 04/23/2020 11:13 AM EDT [facility] - 04/23/2020 7:38 PM EDT Reference intervals for random urine have not been established. Clinical usage is dependent upon physician's interpretation in combination with other laboratory tests. us Mukul Stevens MD URINE ORDERABLES Final Result Performing Organization Address [facility] de Phone Number [facility]
[address] [place] [address], * (ABNORMAL) PTH, Intact (04/23/2020 10:33 AM EDT) PTH, Intact 314.0(H) 15.0 - 65.0 pg/mL 04/23/2020 6:59 PM EDT [facility] Blood Venipuncture / Unknown 04/23/2020 10:33 AM EDT 04/23/2020 10:50 AM EDT [facility] - 04/23/2020 6:59 PM EDT Results may be falsely decreased if patient taking Biotin. us Mukul Stevens MD LAB BLOOD ORDERABLES F inal Result Performing Organization Address [facility] Phone Number [facility]
[address] [place] [address], * Creatinine, Urine, Random - Urine, Clean Catch (04/23/2020 10:33 AM EDT) Creatinine, Urine 80.8 mg/dL 04/23/2020 7:38 PM EDT [facility] Urine Urine specimen collection, clean catch / Unknown Collection / Unknown 04/23/2020 10:33 AM EDT 04/23/2020 11:13 AM EDT [facility] - 04/23/2020 7:38 PM EDT Reference intervals for random urine have not been established. Clinical usage is dependent upon physician's interpretation in combination with other laboratory tests. us Mukul Stevens MD URINE ORDERABLES Final Result [facility]
[address] [place] [address], documented in this encounter Visit Diagnoses Diagnosis Chronic kidney disease, stage V Chronic kidney disease, Stage V documented in this encounter Care Teams Poultry Dresser Relationship Specialty Start Date End Date Jaquan Conley MD [address] [place] [address] PCP - General Internal Medicine 04/23/20 02/14/23 documented as of this encounter
--- OUTSIDE RECORDS SUMMARY | 2024-06-19 08:43 | XMS_ITS | Encounter Summary ---
[facility] Address [address] [place] [address] Care Team Providers Care House Registry Rn Name Role Phone Jaquan Conley MD Primary Care Provider [phone] Reason for Visit * Reason Comments Leg Pain Encounter Details Date Type Department Care Team (Late st Contact Info) Description 05/15/2020 9:06 PM EDT - 05/16/2020 1:09 AM EDT Emergency [facility] [address] [place] [id number] Jaquan Arenas, Acute pain of both [...] Care Everywhere. * Acute Knee Pain Adult (Mongolian) * Hypertension Adult (Mongolian) * Nonspecific Chest Pain Adult (Mongolian) documented in this encounter Medications at Time [...] ??? 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 No pertinent family [...] CARDIOVASCULAR: Good Peripheral pulses. Good capillary refill. Plush and warm extremities. MUSCULOSKELETAL: No compartment syndrome. [...] Name Type Priority Associated Diagnoses Date /Time [place] Draw Lab STAT 05/15/2020 1 1:02 PM [...] Scan Slide (05/15/2020 11:02 PM EDT) Pathologist [facility] [place] RBC Morphology Normal Normal 05/15/2020 11:51 PM EDT [facility] WBC Morphology Normal Normal 05/15/2020 11:51 PM EDT [facility] Platelet Estimate Adequate Normal 05/15/2020 11:51 PM EDT [facility] Blood Venipuncture / Unknown 05/15/2020 11:02 PM EDT 05/15/2020 11:15 PM EDT us Jaquan Arenas DO LAB BLOOD ORDERABLES Final Resu lt [facility]
[address] [place] [address], * (ABNORMAL) CBC Auto Differential (05/15/2020 11:02 PM EDT) WBC 7.11 3.40 - 10.80 10*3/mm3 05/15/2020 11:51 PM EDT [facility] RBC 3.68(L) 3.77 - 5.28 10*6/mm3 05/15/2020 11:51 PM EDT [facility] Hemoglobin 11.4(L) 12.0 - 15.9 g/dL 05/15/2020 11:51 PM EDT [facility] Hematocrit 36.0 34.0 - 46.6 % 05/15/2020 11:51 PM EDT [facility] MCV 97.8(H) 79.0 - 97.0 fL 05/15/2020 11:51 PM EDT [facility] MCH 31.0 26.6 - 33.0 pg 05/15/2020 11:51 PM EDT [facility] MCHC 31.7 31.5 - 35.7 g/dL 05/15/2020 11:51 PM EDT [facility] RDW 13.1 12.3 - 15.4 % 05/15/2020 11:51 PM EDT [facility] RDW-SD 46.7 37.0 - 54.0 fl 05/15/2020 11:51 PM EDT [facility] MPV 13.1(H) 6.0 - 12.0 fL 05/15/2020 11:51 PM EDT [facility] Platelets 168 140 - 450 10*3/mm3 05/15/2020 11:51 PM EDT [facility] Neutrophil % 50.5 42.7 - 76.0 % 05/15/2020 11:51 PM EDT [facility] Lymphocyte % 37.6 19.6 - 45.3 % 05/15/2020 11:51 PM EDT [facility] Monocyte % 7.3 5.0 - 12.0 % 05/15/2020 11:51 PM EDT [facility] Eosinophil % 3.8 0.3 - 6.2 % 05/15/2020 11:51 PM EDT [facility] Basophil % 0.4 0.0 - 1.5 % 05/15/2020 11:51 PM EDT [facility] Immature Grans % 0.4 0.0 - 0.5 % 05/15/2020 11:51 PM EDT [facility] Neutrophils, Absolute 3.59 1.70 - 7.00 10*3/mm3 05/15/2020 11:51 PM EDT [facility] Lymphocytes, Absolute 2.67 0.70 - 3.10 10*3/mm3 05/15/2020 11:51 PM EDT [facility] Monocytes, Absolute 0.52 0.10 - 0.90 10*3/mm3 05/15/2020 11:51 PM EDT [facility] Eosinophils, Absolute 0.27 0.00 - 0.40 10*3/mm3 05/15/2020 11:51 PM EDT [facility] Basophils, Absolute 0.03 0.00 - 0.20 10*3/mm3 05/15/2020 11:51 PM EDT [facility] Immature Grans, Absolute 0.03 0.00 - 0.05 10*3/mm3 05/15/2020 11:51 PM EDT [facility] nRBC 0.0 0.0 - 0.2 /100 WBC 05/15/2020 11:51 PM EDT [facility] Blood Venipuncture / Unknown 05/15/2020 11:02 PM EDT 05/15/2020 11:15 PM EDT us Jaquan Arenas DO LAB BLOOD ORDERABLES Final Resu lt [facility]
[address] [place] [phone], * Gold Top - [facility] (05/15/2020 11:02 PM EDT) Extra Tube Hold for add-ons. 05/16/2020 12:15 AM EDT [facility] Comment:Auto resulted. Blood Venipuncture / Unknown 05/15/2020 11:02 PM EDT 05/15/2020 11:15 PM EDT us Jaquan Arenas DO LAB BLOOD ORDER ONLY Final Resu lt Performing Organization Address City/[facility]/ZIP Co de Phone Number [facility]
[address] [place] [address], [place] [phone] * Lavender Top (05/15/2020 11:02 PM EDT) Extra Tube hold for add-on 05/16/2020 12:15 AM EDT [facility] Comment:Auto resulted Blood Venipuncture / Unknown 05/15/2020 11:02 PM EDT 05/15/2020 11:15 PM EDT us Jaquan Arenas DO LAB BLOOD ORDER ONLY Final Resu lt Performing Organization Address [facility]/ZIP Co de Phone Number [facility]
[address] [place] [address], [place] [phone] * Green Top (Gel) (05/15/2020 11:02 PM EDT) Extra Tube Hold for add-ons. 05/16/2020 12:15 AM EDT [facility] Comment:Auto resulted. Blood Venipuncture / Unknown 05/15/2020 11:02 PM EDT 05/15/2020 11:15 PM EDT us Jaquan Arenas DO LAB BLOOD ORDER ONLY Final Resu lt Performing Organization Address City/[facility]/ZIP Co de Phone Number [facility]
[address] [place] [id number], [place] [phone] * Light Blue Top (05/15/2020 11:02 PM EDT) Extra Tube hold for add-on 05/16/2020 12:15 AM EDT [facility] Comment:Auto resulted Blood Venipuncture / Unknown 05/15/2020 11:02 PM EDT 05/15/2020 11:15 PM EDT us Jaquan W Arenas DO LAB BLOOD ORDER ONLY Final Resu lt Performing Organization Address [facility]/ZIP Co de Phone Number [facility]
[address] [place] [address], * Troponin (05/15/2020 11:02 PM EDT) Troponin T <0.010 0.000 - 0.030 ng/mL 05/15/2020 11:36 PM EDT [facility] Blood Venipuncture / Unknown 05/15/2020 11:02 PM EDT 05/15/2020 11:15 PM EDT Narrative [facility] - 05/15/2020 11:36 PM EDT [...] ORDERABLES Final Resu lt Performing Organization Address [facility] Co de Phone Number [facility]
[address] [place] [address], * (ABNORMAL) Comprehensive Metabolic Panel (05/15/2020 11:02 PM EDT) Glucose 111(H) 65 - 99 mg/dL 05/15/2020 11:34 PM EDT [facility] BUN 31(H) 6 - 20 mg/dL 05/15/2020 11:34 PM EDT [facility] Creatinine 4.11(H) 0.57 - 1.00 mg/dL 05/15/2020 11:34 PM EDT [facility] Sodium 143 136 - 145 mmol/L 05/15/2020 11:34 PM EDT [facility] Potassium 4.7 3.5 - 5.2 mmol/L 05/15/2020 11:34 PM EDT [facility] Chloride 113(H) 98 - 107 mmol/L 05/15/2020 11:34 PM EDT [facility] CO2 19.3(L) 22.0 - 29.0 mmol/L 05/15/2020 11:34 PM T [facility] Calcium 9.0 8.6 - 10.5 mg/dL 05/15/2020 11:34 PM [facility] Total Protein 6.8 6.0 - 8.5 g/dL 05/15/2020 11:34 PM [facility] Albumin 4.00 3.50 - 5.20 g/dL 05/15/2020 11:34 PM [facility] ALT (SGPT) 11 1 - 33 U/L 05/15/2020 11:34 PM [facility] AST (SGOT) 12 1 - 32 U/L 05/15/2020 11:34 PM [facility] Alkaline Phosphatase 87 39 - 117 U/L 05/15/2020 11:34 PM [facility] Total Bilirubin 0.2 0.0 - 1.2 mg/dL 05/15/2020 11:34 PM [facility] eGFR Non Amer 13(L) >60 mL/min/1.7 3 05/15/2020 11:34 PM [facility] Comment:<15 Indicative of ki dney failure. eGFR Amer 05/15/2020 11:34 PM [facility] Comment:<15 Indicative of ki dney failure. Globulin 2.8 gm/dL 05/15/2020 11:34 PM [facility] A/G Ratio 1.4 g/dL 05/15/2020 11:34 PM [facility] BUN/Creatinine Ratio 7.5 7.0 - 25.0 05/15/2020 11:34 PM [facility] Anion Gap 10.7 5.0 - 15.0 mmol/L 05/15/2020 11:34 PM [facility] Blood Venipuncture / Unknown 05/15/2020 11:02 PM EDT 05/15/2020 11:15 PM EDT Narrative [facility] - 05/15/2020 11:34 PM EDT GFR Normal >60 Chronic Kidney Disease <60 Kidney Failure <15 us Jaquan Arenas DO LAB BLOOD ORDERABLES Final Resu lt [facility]
[address] [place] [address], * XR Chest 1 View (05/15/2020 10:29 [...] [id number] documented in this encounter Care Teams House Registry Rn Relationship Specialty Start Date End Date Jaquan Conley MD [address] [place] [address] PCP - General Internal Medicine 04/23/20 02/14/23 documented as of this encounter
--- OUTSIDE RECORDS SUMMARY | 2024-06-19 08:43 | XMS_ITS | Encounter Summary ---
[facility] Address [address] [place] [address] Care Team Providers Care Sheet Mill Supervisor Name Role Phone Jaquan Conley MD Primary Care Provider [phone] [phone] Encounter Details Date Type Department Care Team (Late st Contact Info) Description 11/20/2020 3:00 PM EDT Lab [facility] [address] [place] [address] Anemia, unspecified type; CKD stage [...] Seen, 0-2 /HPF 11/20/2020 11:27 PM EDT [facility] WBC, UA 3-5(A) None Seen, 0-2 /HPF 11/20/2020 11:27 PM EDT [facility] Bacteria, UA 4+(A) None Seen /HPF 11/20/2020 11:27 PM EDT [facility] Squamous Epithelial Cells, UA 7-12(A) None Seen, 0-2 /HPF 11/20/2020 11:27 PM EDT [facility] Hyaline Casts, UA 3-6 None Seen /LPF 11/20/2020 11:27 PM EDT [facility] Methodology Automated Microscopy 11/20/2020 11:27 PM T [facility] Urine Urine specimen collection, clean catch / Unknown Collection / Unknown 11/20/2020 3:06 PM EDT 11/20/2020 3:54 PM EDT John Garcia MD URINE ORDERABLES Final Resul t [facility]
[address] [place] [address], [place] [phone] * (ABNORMAL) Urinalysis without microscopic (no culture) - Urine, Clean Catch (11/20/2020 3:06 PM EDT) Color, UA Yellow Yellow, Straw 11/20/2020 11:30 PM EDT [facility] Appearance, UA Clear Clear 11/20/2020 11:30 PM EDT [facility] pH, UA 6.0 5.0 - 8.0 11/20/2020 11:30 PM EDT [facility] Specific [place], UA 1.012 1.005 - 1.030 11/20/2020 11:30 PM EDT [facility] Glucose, UA Negative Negative 11/20/2020 11:30 PM EDT [facility] Ketones, UA Negative Negative 11/20/2020 11:30 PM EDT [facility] Bilirubin, UA Negative Negative 11/20/2020 11:30 PM EDT [facility] Blood, UA Small (1+)(A) Negative 11/20/2020 11:30 PM EDT [facility] Protein, UA >=300 mg/dL (3+)(A) Negative 11/20/2020 11:30 PM EDT [facility] Leuk Esterase, UA Negative Negative 11/20/2020 11:30 PM EDT [facility] Nitrite, UA Negative Negative 11/20/2020 11:30 PM EDT [facility] Urobilinogen, UA 0.2 E.U./dL 0.2 - 1.0 E.U./dL 11/20/2020 11:30 PM EDT [facility] Urine Urine specimen collection, clean catch / Unknown Collection / Unknown 11/20/2020 3:06 PM EDT 11/20/2020 3:54 PM EDT John Garcia MD URINE ORDERABLES Final Resul t [facility]
[address] [place] [address], * (ABNORMAL) CBC Auto Differential (11/20/2020 3:06 PM EDT) WBC 7.86 3.40 - 10.80 10*3/mm3 11/21/2020 12:27 AM [facility] RBC 4.62 3.77 - 5.28 10*6/mm3 11/21/2020 12:27 AM [facility] Hemoglobin 14.2 12.0 - 15.9 g/dL 11/21/2020 12:27 AM [facility] Hematocrit 44.5 34.0 - 46.6 % 11/21/2020 12:27 AM [facility] MCV 96.3 79.0 - 97.0 fL 11/21/2020 12:27 AM [facility] MCH 30.7 26.6 - 33.0 pg 11/21/2020 12:27 AM [facility] MCHC 31.9 31.5 - 35.7 g/dL 11/21/2020 12:27 AM [facility] RDW 11.8(L) 12.3 - 15.4 % 11/21/2020 12:27 AM [facility] RDW-SD 41.9 37.0 - 54.0 fl 11/21/2020 12:27 AM [facility] MPV 13.7(H) 6.0 - 12.0 fL 11/21/2020 12:27 AM [facility] Platelets 215 140 - 450 10*3/mm3 11/21/2020 12:27 AM EDT [facility] Neutrophil % 51.1 42.7 - 76.0 % 11/21/2020 12:27 AM EDT [facility] Lymphocyte % 39.1 19.6 - 45.3 % 11/21/2020 12:27 AM EDT [facility] Monocyte % 4.3(L) 5.0 - 12.0 % 11/21/2020 12:27 AM EDT [facility] Eosinophil % 4.8 0.3 - 6.2 % 11/[facility]2020 [facility] Basophil % 0.4 0.0 - 1.5 % 11/21/2020 12:[facility] Neutrophils, Absolute 4.02 1.70 - 7.00 10*3/mm3 11/21/2020 12:[facility] Lymphocytes, Absolute 3.07 0.70 - 3.10 10*3/mm3 11/21/2020 12:27 AM EDT [facility] Monocytes, Absolute 0.34 0.10 - 0.90 10*3/mm3 11/21/2020 12:[facility] Eosinophils, Absolute 0.38 0.00 - 0.40 10*3/mm3 11/21/2020 12:27 [facility] Basophils, Absolute 0.03 0.00 - 0.20 10*3/mm3 11/21/2020 12:27 AM [facility] Blood Venipuncture / Unknown 11/20/2020 3:06 PM EDT 11/20/2020 3:54 PM EDT John Garcia MD LAB BLOOD ORDERABLES Final R esult [facility]
[address] [place] [address], [place] [phone] * (ABNORMAL) Renal Function Panel (11/20/2020 3:06 PM EDT) [facility] Glucose 211(H) 65 - 99 mg/dL 11/21/2020 12:13 AM [facility] BUN 30(H) 6 - 20 mg/dL 11/21/2020 12:13 AM [facility] Creatinine 2.86(H) 0.57 - 1.00 mg/dL 11/21/2020 12:13 AM [facility] Sodium 137 136 - 145 mmol/L 11/21/2020 12:13 AM [facility] Potassium 4.9 3.5 - 5.2 mmol/L 11/21/2020 12:13 AM [facility] Chloride 108(H) 98 - 107 mmol/L 11/21/2020 12:13 AM [facility] CO2 18.7(L) 22.0 - 29.0 mmol/L 11/21/2020 12:13 AM [facility] Calcium 9.2 8.6 - 10.5 mg/dL 11/21/2020 12:13 AM [facility] Albumin 4.10 3.50 - 5.20 g/dL 11/21/2020 12:13 AM [facility] Phosphorus 3.6 2.5 - 4.5 mg/dL 11/21/2020 12:13 AM [facility] Anion Gap 10.3 5.0 - 15.0 mmol/L 11/21/2020 12:13 AM [facility] BUN/Creatinine Ratio 10.5 7.0 - 25.0 11/21/2020 12:13 AM [facility] eGFR Non Amer 19(L) >60 mL/min/1.7 3 11/21/2020 12:13 AM [facility] Blood Venipuncture / Unknown 11/20/2020 3:06 PM EDT 11/20/2020 3:54 PM T [facility] - 11/21/2020 12:13 AM EDT GFR Normal >60 Chronic Kidney Disease <60 Kidney Failure <15 John Garcia MD LAB BLOOD ORDERABLES Final R esult [facility]
[address] [place] [address], [place] [phone] documented in this encounter Visit Diagnoses Diagnosis Anemia, unspecified type CKD stage G5/A3, GFR <15 and albumin creatinine ratio >300 mg/g documented in this encounter Care Teams Sheet Mill Supervisor Relationship Specialty Start Date End Date Jaquan Conley MD [address] [place] [address] PCP - General Internal Medicine 04/23/20 02/14/23 documented as of this encounter
--- OUTSIDE RECORDS SUMMARY | 2024-06-19 08:44 | XMS_ITS | Encounter Summary ---
Author Organization [facility]stem Address [address] [place] [address] Care Team Providers Care Quality Process Auditor Name Role Phone Unavailable Primary Care Provider Unavailabl e Reason for Visit * Reason Comments Flu Symptoms Encounter Details Date Type Department Care Team (Late st Contact Info) Description 05/03/2019 3:44 PM EDT - 05/03/2019 5:01 PM EDT Emergency [facility] [address] [place] [phone] Christopher Aggarwal MD Acute bronchitis, unspecified [...] through Care Everywhere. * Acute Bronchitis Adult [id number] (Israeli) documented in this encounter Medications at Time [...] 10/17/2012 ??? SECTION ??? INDUCED 2006 [facility] [...] ED Course as of May 03 1656 [facility] May 03, 2019 1649 Patient sitting up [...] this patient encounter, I reviewed the SENIOR PLANNER or PA documentation, treatment plan, and medical [...] None Seen /HPF 05/03/2019 4:31 PM EDT [facility] WBC, UA 0-2(A) None Seen /HPF 05/03/2019 4:31 PM EDT [facility] Bacteria, UA 1+(A) None Seen /HPF 05/03/2019 4:31 PM EDT [facility] Squamous Epithelial Cells, UA 0-2 None Seen, 0-2 /HPF 05/03/2019 4:31 PM EDT [facility] Hyaline Casts, UA None Seen None Seen /LPF 05/03/2019 4:31 PM EDT [facility] Methodology Manual Light Microscopy 05/03/2019 4:31 PM EDT [facility] Urine Urine specimen collection, clean catch / Unknown Collection / Unknown 05/03/2019 4:05 PM EDT 05/03/2019 4:07 PM EDT Bc Dumont PA-C URINE ORDERABLES Final Result [facility]
[address] [place] [address], * (ABNORMAL) Urinalysis With Culture If Indicated - Urine, Clean Catch (05/03/2019 4:05 PM EDT) Color, UA Yellow Yellow, Straw 05/03/2019 4:13 PM EDT [facility] Appearance, UA Clear Clear 05/03/2019 4:13 PM EDT [facility] pH, UA 7.0 5.0 - 8.0 05/03/2019 4:13 PM EDT [facility] Specific [place], UA 1.010 1.005 - 1.030 05/03/2019 4:13 PM EDT [facility] Glucose, UA Negative Negative 05/03/2019 4:13 PM EDT [facility] Ketones, UA Negative Negative 05/03/2019 4:13 PM EDT [facility] Bilirubin, UA Negative Negative 05/03/2019 4:13 PM EDT [facility] Blood, UA Negative Negative 05/03/2019 4:13 PM EDT [facility] Protein, UA >=300 mg/dL (3+)(A) Negative 05/03/2019 4:13 PM EDT [facility] Leuk Esterase, UA Negative Negative 05/03/2019 4:13 PM EDT [facility] Nitrite, UA Negative Negative 05/03/2019 4:13 PM EDT [facility] Urobilinogen, UA 0.2 E.U./dL 0.2 - 1.0 E.U./dL 05/03/2019 4:13 PM EDT [facility] Urine Urine specimen collection, clean catch / Unknown Collection / Unknown 05/03/2019 4:05 PM EDT 05/03/2019 4:07 PM EDT Bc Dumont PA-C URINE ORDERABLES Final Result Performing Organization Address City/[facility]/ZIP Co de Phone Number [facility]
[address] [place] [address], [place] [phone] * , Urine - Urine, Clean Catch (05/03/2019 4:05 PM EDT) HCG, Urine QL Negative Negative 05/03/2019 4:14 PM EDT [facility] Urine Urine specimen collection, clean catch / Unknown Collection / Unknown 05/03/2019 4:05 PM EDT 05/03/2019 4:07 PM EDT Bc MENDEZ-Todd URINE ORDERABLES Final Result Performing Organization Address [facility] de Phone Number [facility]
[address] [place] [address], [place] [phone] * Beta Strep Culture, Throat - Swab, Throat (05/03/2019 3:51 PM EDT) Throat Culture, Beta Strep No Beta Hemolytic Streptococcus Isolated KIRA 05/05/2019 8:17 AM EDT [facility] Swab Specimen from throat / Unknown Collection / Unknown 05/03/2019 3:51 PM EDT 05/03/2019 3:54 PM EDT Narrative [facility] - 05/05/2019 8:17 AM EDT Group A Strep incidence is low in adults. Positive culture for Beta hemolytic Streptococcus species can reflect colonization and not true infection. Please correlate clinically. Christopher Aggarwal MD MICROBIOLOGY - GENERAL O RDERABLES Final Result Performing Organization Address City/[facility]/ZIP Co de Phone Number [facility]
[address] [place] [address], [place] [phone] * Influenza Antigen, Rapid - Swab, Nasopharynx (05/03/2019 3:51 PM EDT) Influenza A Ag, EIA Negative Negative 05/03/2019 4:07 PM EDT [facility] Influenza B Ag, EIA Negative Negative 05/03/2019 4:07 PM EDT [facility] Swab Nasopharyngeal structure / Unknown Collection / Unknown 05/03/2019 3:51 PM EDT 05/03/2019 3:53 PM EDT Christopher Aggarwal MD MICROBIOLOGY - GENERAL O RDERABLES Final Result [facility]
[address] [place] [address], [place] [phone] * Rapid Strep A Screen - Swab, Throat (05/03/2019 3:51 PM EDT) Strep A Ag Negative Negative 05/03/2019 4:05 PM EDT [facility] Swab Specimen from throat / Unknown Collection / Unknown 05/03/2019 3:51 PM EDT 05/03/2019 3:54 PM EDT Christopher Aggarwal MD MICROBIOLOGY - GENERAL O RDERABLES Final Result [facility]
[address] [place] [address], [place] [phone] documented in this encounter Visit Diagnoses Diagnosis Acute bronchitis, unspecified organism- Primary documented in this encounter
--- OUTSIDE RECORDS SUMMARY | 2024-06-19 08:44 | XMS_ITS | Encounter Summary ---
Author Organization [facility] Address [address] [place] [id number] Care Team Providers Care Envelope Fold Operator Name Role Phone Unavailable Primary Care Provider Unavailabl e Reason for Visit * Reason Comments Wound Check Encounter Details Date Type Department Care Team (Late st Contact Info) Description 05/01/2019 9:56 PM EDT - 05/01/2019 10:58 PM EDT Emergency [facility] EMERGENC[facility] [address] [place] [address] Phill Gama, DO [address], [place] [id number] Visit for wound check (Primary Dx) Discharge [...] acutely infected. May use topical steroids and [id number] antibiotic ointment on the area for the [...] through Care Everywhere. * Wound Care Adult ([place]) documented in this encounter Medications at Time [...] Chronic constipation ??? Depression ??? Diabetes mellitus ([facility]) ??? Excessive thirst ??? H/O mammogram 2014 [...] 10/17/2012 ??? SECTION ??? INDUCED 2006 [facility] History [...] For this patient encounter, I reviewed the MINE ANALYST or PA documentation, treatment plan, and medical decision making. Phill Gama DO 05/02/2019 12:31 AM documented in this encounter Plan of Treatment Not on file documented as of this encounter Visit Diagnoses Diagnosis Visit for wound check- Primary documented in this encounter
--- OUTSIDE RECORDS SUMMARY | 2024-06-19 08:44 | XMS_ITS | Encounter Summary ---
[facility] Address [address] [place] [address] Care Team Providers Care Trip Follower Name Role Phone Unavailable Primary Care Provider Unavailabl e Encounter Details Date Type Department Care Team (Late st Contact Info) Description 01/15/2020 11:45 AM EDT Lab [facility] [address] [place] [address] Chronic kidney disease, stage V [...] - 145 mcg/dL 11/21/2020 12:13 AM EDT [facility] Blood Venipuncture / Unknown 11/20/2020 3:06 PM EDT 11/20/2020 3:54 PM EDT us Ming Low MD LAB BLOOD ORDERABLES Final Res ult [facility]
[address] [place] [address], [place] [phone] * (ABNORMAL) Urinalysis, Microscopic Only - Urine, Clean Catch (01/15/2020 12:06 PM EDT) RBC, UA 3-5(A) None Seen, 0-2 /HPF 01/15/2020 6:49 PM EDT [facility] WBC, UA 6-12(A) None Seen, 0-2 /HPF 01/15/2020 6:49 PM EDT [facility] Bacteria, UA 3+(A) None Seen /HPF 01/15/2020 6:49 PM EDT [facility] Squamous Epithelial Cells, UA 3-6(A) None Seen, 0-2 /HPF 01/15/2020 6:49 PM EDT [facility] Hyaline Casts, UA 0-2 None Seen /LPF 01/15/2020 6:49 PM EDT [facility] Methodology Automated Microscopy 01/15/2020 6:49 PM EDT [facility] Urine Urine specimen collection, clean catch / Unknown Collection / Unknown 01/15/2020 12:06 PM EDT 01/15/2020 1:26 PM EDT Ming Low MD URINE ORDERABLES Final Result [facility]
[address] [place] [address], * (ABNORMAL) Urinalysis without microscopic (no culture) - Urine, Clean Catch (01/15/2020 12:06 PM EDT) Color, UA Yellow Yellow, Straw 01/15/2020 6:45 PM EDT [facility] Appearance, UA Clear Clear 01/15/2020 6:45 PM EDT [facility] pH, UA 6.0 5.0 - 8.0 01/15/2020 6:45 PM EDT [facility] Specific [place], UA 1.016 1.005 - 1.030 01/15/2020 6:45 PM EDT [facility] Glucose, UA 100 mg/dL (Trace)(A) Negative 01/15/2020 6:45 PM EDT [facility] Ketones, UA Negative Negative 01/15/2020 6:45 PM EDT [facility] Bilirubin, UA Negative Negative 01/15/2020 6:45 PM EDT [facility] Blood, UA Small (1+)(A) Negative 01/15/2020 6:45 PM EDT [facility] Protein, UA >=300 mg/dL (3+)(A) Negative 01/15/2020 6:45 PM EDT [facility] Leuk Esterase, UA Negative Negative 01/15/2020 6:45 PM EDT [facility] Nitrite, UA Negative Negative 01/15/2020 6:45 PM EDT [facility] Urobilinogen, UA 0.2 E.U./dL 0.2 - 1.0 E.U./dL 01/15/2020 6:45 PM EDT [facility] Urine Urine specimen collection, clean catch / Unknown Collection / Unknown 01/15/2020 12:06 PM EDT 01/15/2020 1:26 PM EDT Ming Low MD URINE ORDERABLES Final Result [facility]
[address] [place] [address], * (ABNORMAL) Manual Differential (01/15/2020 12:06 PM EDT) Neutrophil % 75.8 42.7 - 76.0 % 01/15/2020 7:36 PM EDT [facility] Lymphocyte % 22.2 19.6 - 45.3 % 01/15/2020 7:36 PM EDT [facility] Monocyte % 1.0(L) 5.0 - 12.0 % 01/15/2020 7:36 PM EDT [facility] Eosinophil % 1.0 0.3 - 6.2 % 01/15/2020 7:36 PM EDT [facility] Neutrophils Absolute 7.31(H) 1.70 - 7.00 10*3/mm3 [facility]2020 [facility] Lymphocytes Absolute 2.14 0.70 - 3.10 10*3/mm3 01/15/2020 7:36 PM EDT [facility] Monocytes Absolute 0.10 0.10 - 0.90 10*3/mm3 01/15/2020 7:36 PM EDT [facility] Eosinophils Absolute 0.10 0.00 - 0.40 10*3/mm3 01/15/2020 7:36 PM EDT [facility] RBC Morphology Normal Normal 01/15/2020 7:36 PM EDT [facility] WBC Morphology Normal Normal 01/15/2020 7:36 PM EDT [facility] Platelet Morphology Normal Normal 01/15/2020 7:36 PM EDT [facility] Blood Venipuncture / Unknown 01/15/2020 12:06 PM EDT 01/15/2020 1:11 PM EDT us Ming Low MD LAB BLOOD ORDERABLES Final Res ult [facility]
[address] [place] [address], * (ABNORMAL) CBC Auto Differential (01/15/2020 12:06 PM EDT) WBC 9.65 3.40 - 10.80 10*3/mm3 01/15/2020 7:36 PM EDT [facility] RBC 3.74(L) 3.77 - 5.28 10*6/mm3 01/15/2020 7:36 PM EDT [facility] Hemoglobin 11.1(L) 12.0 - 15.9 g/dL 01/15/2020 7:36 PM EDT [facility] Hematocrit 33.1(L) 34.0 - 46.6 % 01/15/2020 7:36 PM EDT [facility] MCV 88.5 79.0 - 97.0 fL 01/15/2020 7:36 PM EDT [facility] MCH 29.7 26.6 - 33.0 pg 01/15/2020 7:36 PM EDT [facility] MCHC 33.5 31.5 - 35.7 g/dL 01/15/2020 7:36 PM EDT [facility] RDW 12.4 12.3 - 15.4 % 01/15/2020 7:36 PM EDT [facility] RDW-SD 40.4 37.0 - 54.0 fl 01/15/2020 7:36 PM EDT [facility] MPV 12.8(H) 6.0 - 12.0 fL 01/15/2020 7:36 PM EDT [facility] Platelets 292 140 - 450 10*3/mm3 01/15/2020 7:36 PM EDT [facility] Blood Venipuncture / Unknown 01/15/2020 12:06 PM EDT 01/15/2020 1:11 PM EDT Ming Low MD LAB BLOOD ORDERABLES Final Res ult Performing Organization Address City/[facility]/ZIP Co de Phone Number [facility]
[address] [place] [address], * (ABNORMAL) Vitamin D 25 Hydroxy (01/15/2020 12:06 PM EDT) 25 Hydroxy, Vitamin D 18.4(L) 30.0 - 100.0 ng/ml 01/15/2020 7:38 PM EDT [facility] Blood Venipuncture / Unknown 01/15/2020 12:06 PM EDT 01/15/2020 1:10 PM EDT Narrative [facility] - 01/15/2020 7:38 PM EDT Reference Range for Total Vitamin D 25(OH) Deficiency <20.0 ng/mL Insufficiency 21-29 ng/mL Sufficiency 30-100 ng/mL Toxicity >100 ng/ml Results may be falsely increased if patient taking Biotin. Ming Low MD LAB BLOOD ORDERABLES Final Res ult Performing Organization Address City/[facility]/ZIP Co de Phone Number [facility]
[address] [place] [address], * (ABNORMAL) Renal Function Panel (01/15/2020 12:06 PM EDT) Glucose 93 65 - 99 mg/dL 01/15/2020 7:15 PM EDT [facility] BUN 48(H) 6 - 20 mg/dL 01/15/2020 7:15 PM EDT [facility] Creatinine 4.29(H) 0.57 - 1.00 mg/dL 01/15/2020 7:15 PM EDT [facility] Sodium 136 136 - 145 mmol/L 01/15/2020 7:15 PM EDT [facility] Potassium 4.6 3.5 - 5.2 mmol/L 01/15/2020 7:15 PM EDT [facility] Chloride 108(H) 98 - 107 mmol/L 01/15/2020 7:15 PM EDT [facility] CO2 18.0(L) 22.0 - 29.0 mmol/L 01/15/2020 7:15 PM EDT [facility] Calcium 9.1 8.6 - 10.5 mg/dL 01/15/2020 7:15 PM EDT [facility] Albumin 4.00 3.50 - 5.20 g/dL 01/15/2020 7:15 PM EDT [facility] Phosphorus 3.9 2.5 - 4.5 mg/dL 01/15/2020 7:15 PM EDT [facility] Anion Gap 10.0 5.0 - 15.0 mmol/L 01/15/2020 7:15 PM EDT [facility] BUN/Creatinine Ratio 11.2 7.0 - 25.0 01/15/2020 7:15 PM EDT [facility] eGFR Non Amer 12(L) >60 mL/min/1.7 3 01/15/2020 7:15 PM EDT [facility] Comment:<15 Indicative of ki dney failure. eGFR Amer 01/15/2020 7:15 PM EDT [facility] Comment:<15 Indicative of ki dney failure. Blood Venipuncture / Unknown 01/15/2020 12:06 PM EDT 01/15/2020 1:10 PM EDT [facility] - 01/15/2020 7:15 PM EDT GFR Normal >60 Chronic Kidney Disease <60 Kidney Failure <15 us Ming Low MD LAB BLOOD ORDERABLES Final Res ult Performing Organization Address [facility] Co de Phone Number [facility]
[address] [place] [address], * (ABNORMAL) PTH, Intact (01/15/2020 12:06 PM EDT) PTH, Intact 373.0(H) 15.0 - 65.0 pg/mL 01/15/2020 8:03 PM EDT [facility] Blood Venipuncture / Unknown 01/15/2020 12:06 PM EDT 01/15/2020 1:10 PM EDT [facility] - 01/15/2020 8:03 PM EDT Results may be falsely decreased if patient taking Biotin. us Ming Low MD LAB BLOOD ORDERABLES Final Res ult Performing Organization Address [facility] Co de Phone Number [facility]
[address] [place] [address], * (ABNORMAL) Ferritin (01/15/2020 12:06 PM EDT) Ferritin 637.00(H) 13.00 - 150.00 ng/mL 01/15/2020 7:18 PM EDT [facility] Blood Venipuncture / Unknown 01/15/2020 12:06 PM EDT 01/15/2020 1:10 PM EDT [facility] - 01/15/2020 7:18 PM EDT Results may be falsely decreased if patient taking Biotin. us Ming Low MD LAB BLOOD ORDERABLES Final Res ult Performing Organization Address [facility] Co de Phone Number [facility]
[address] [place] [address], * (ABNORMAL) Iron Profile (01/15/2020 12:06 PM EDT) Iron 50 37 - 145 mcg/dL 01/15/2020 7:15 PM EDT [facility] Iron Saturation (TSAT) 19(L) 20 - 50 % 01/15/2020 7:15 PM EDT [facility] Transferrin 181(L) 200 - 360 mg/dL 01/15/2020 7:15 PM EDT [facility] TIBC 270(L) 298 - 536 mcg/dL 01/15/2020 7:15 PM EDT [facility] Blood Venipuncture / Unknown 01/15/2020 12:06 PM EDT 01/15/2020 1:10 PM EDT us Ming Low MD LAB BLOOD ORDERABLES Final Res ult Performing Organization Address [facility] Co de Phone Number [facility]
[address] [place] [address], [place] [phone] documented in this encounter Visit Diagnoses Diagnosis Chronic kidney disease, stage V Chronic kidney disease, Stage V documented in this encounter
--- OUTSIDE RECORDS SUMMARY | 2024-06-19 08:44 | XMS_ITS | Encounter Summary ---
[facility] Address [address] [place] [address] Care Team Providers Care Cover Cutter Machine Name Role Phone Unavailable Primary Care Provider Unavailabl e Encounter Details Date Type Department Care Team (Late st Contact Info) Description 06/22/2019 7:40 AM EST [facility] [address] [place] [address] Chronic kidney disease, stage IV [...] - 76.0 % 06/22/2019 12:31 PM EST [facility] Lymphocyte % 27.4 19.6 - 45.3 % 06/22/2019 12:31 PM EST [facility] Monocyte % 3.2(L) 5.0 - 12.0 % 06/22/2019 12:31 PM EST [facility] Eosinophil % 2.1 0.3 - 6.2 % 06/22/2019 12:31 PM [facility] Neutrophils Absolute 5.01 1.70 - 7.00 10*3/mm3 06/22/2019 12:31 PM [facility] Lymphocytes Absolute 2.04 0.70 - 3.10 10*3/mm3 06/22/2019 12:31 PM [facility] Monocytes Absolute 0.24 0.10 - 0.90 10*3/mm3 06/22/2019 12:31 PM [facility] Eosinophils Absolute 0.16 0.00 - 0.40 10*3/mm3 06/22/2019 12:31 PM [facility] RBC Morphology Normal Normal 06/22/2019 12:31 PM [facility] Smudge Cells Slight/1+ None Seen 06/22/2019 12:31 PM [facility] Platelet Morphology Normal Normal 06/22/2019 12:31 PM [facility] Blood Venipuncture / Unknown 06/22/2019 7:41 AM EST 06/22/2019 8:19 AM EST us Ming Low MD LAB BLOOD ORDERABLES Final Res ult [facility]
[address] [place] [address], * Urinalysis, Microscopic Only - Urine, Clean Catch (06/22/2019 7:41 AM EST) RBC, UA 0-2 None Seen, 0-2 /HPF 06/22/2019 6:17 PM [facility] WBC, UA 0-2 None Seen, 0-2 /HPF 06/22/2019 6:17 PM [facility] Bacteria, UA None Seen None Seen /HPF 06/22/2019 6:17 PM [facility] Squamous Epithelial Cells, UA 0-2 None Seen, 0-2 /HPF 06/22/2019 6:17 PM [facility] Hyaline Casts, UA None Seen None Seen /LPF 06/22/2019 6:17 PM [facility] Methodology Automated Microscopy 06/22/2019 6:17 PM [facility] Urine Urine specimen collection, clean catch / Unknown Collection / Unknown 06/22/2019 7:41 AM EST 06/22/2019 8:59 AM EST Ming Low MD URINE ORDERABLES Final Result [facility]
[address] [place] [address], * (ABNORMAL) Urinalysis without microscopic (no culture) - Urine, Clean Catch (06/22/2019 7:41 AM EST) Color, UA Yellow Yellow, Straw 06/22/2019 6:10 PM [facility] Appearance, UA Clear Clear 06/22/2019 6:10 PM [facility] pH, UA 7.0 5.0 - 8.0 06/22/2019 6:10 PM [facility] Specific [place], UA 1.010 1.005 - 1.030 06/22/2019 6:10 PM [facility] Glucose, UA 250 mg/dL (1+)(A) Negative 06/22/2019 6:10 PM [facility] Ketones, UA Negative Negative 06/22/2019 6:10 PM [facility] Bilirubin, UA Negative Negative 06/22/2019 6:10 PM [facility] Blood, UA Negative Negative 06/22/2019 6:10 PM [facility] Protein, UA 100 mg/dL (2+)(A) Negative 06/22/2019 6:10 PM [facility] Leuk Esterase, UA Negative Negative 06/22/2019 6:10 PM [facility] Nitrite, UA Negative Negative 06/22/2019 6:10 PM [facility] Urobilinogen, UA 0.2 E.U./dL 0.2 - 1.0 E.U./dL 06/22/2019 6:10 PM [facility] Urine Urine specimen collection, clean catch / Unknown Collection / Unknown 06/22/2019 7:41 AM EST 06/22/2019 8:59 AM EST Ming Low MD URINE ORDERABLES Final Result [facility]
[address] [place] [address], * (ABNORMAL) CBC Auto Differential (06/22/2019 7:41 AM EST) WBC 7.43 3.40 - 10.80 10*3/mm3 06/22/2019 12:31 PM [facility] RBC 3.75(L) 3.77 - 5.28 10*6/mm3 06/22/2019 12:31 PM [facility] Hemoglobin 10.6(L) 12.0 - 15.9 g/dL 06/22/2019 12:31 PM [facility] Hematocrit 33.2(L) 34.0 - 46.6 % 06/22/2019 12:31 PM [facility] MCV 88.5 79.0 - 97.0 fL 06/22/2019 12:31 PM [facility] MCH 28.3 26.6 - 33.0 pg 06/22/2019 12:31 PM [facility] MCHC 31.9 31.5 - 35.7 g/dL 06/22/2019 12:31 PM [facility] RDW 13.3 12.3 - 15.4 % 06/22/2019 12:31 PM [facility] RDW-SD 43.0 37.0 - 54.0 fl 06/22/2019 12:31 PM [facility] MPV 13.9(H) 6.0 - 12.0 fL 06/22/2019 12:31 PM [facility] Platelets 205 140 - 450 10*3/mm3 06/22/2019 12:31 PM [facility] Blood Venipuncture / Unknown 06/22/2019 7:41 AM EST 06/22/2019 8:19 AM EST us Ming Low MD LAB BLOOD ORDERABLES Final Res ult Performing Organization Address [facility] de Phone Number [facility]
[address] [place] [address], * (ABNORMAL) Vitamin D 25 Hydroxy (06/22/2019 7:41 AM EST) 25 Hydroxy, Vitamin D 16.0(L) 30.0 - 100.0 ng/ml 06/22/2019 12:28 PM EST [facility] Blood Venipuncture / Unknown 06/22/2019 7:41 AM EST 06/22/2019 8:19 AM EST Narrative [facility] - 06/22/2019 12:28 PM EST Reference Range for Total Vitamin D 25(OH) Deficiency <20.0 ng/mL Insufficiency 21-29 ng/mL Sufficiency 30-100 ng/mL Toxicity >100 ng/ml us Ming Low MD LAB BLOOD ORDERABLES Final Res ult Performing Organization Address [facility] de Phone Number [facility]
[address] [place] [address], * (ABNORMAL) Renal Function Panel (06/22/2019 7:41 AM EST) Glucose 284(H) 65 - 99 mg/dL 06/22/2019 12:22 PM EST [facility] BUN 51(H) 6 - 20 mg/dL 06/22/2019 12:22 PM EST [facility] Creatinine 4.07(H) 0.57 - 1.00 mg/dL 06/22/2019 12:22 PM EST [facility] Sodium 138 136 - 145 mmol/L 06/22/2019 12:22 PM EST [facility] Potassium 4.8 3.5 - 5.2 mmol/L 06/22/2019 12:22 PM [facility] Chloride 99 98 - 107 mmol/L 06/22/2019 12:22 PM [facility] CO2 23.7 22.0 - 29.0 mmol/L 06/22/2019 12:22 PM [facility] Calcium 8.2(L) 8.6 - 10.5 mg/dL 06/22/2019 12:22 PM EST [facility] Albumin 4.00 3.50 - 5.20 g/dL 06/22/2019 12:22 PM [facility] Phosphorus 5.0(H) 2.5 - 4.5 mg/dL 06/22/2019 12:22 PM [facility] Anion Gap 15.3(H) 5.0 - 15.0 mmol/L 06/22/2019 12:22 PM [facility] BUN/Creatinine Ratio 12.5 7.0 - 25.0 06/22/2019 12:22 PM EST [facility] eGFR Non Amer 13(L) >60 mL/min/1.7 3 06/22/2019 12:22 PM EST [facility] Comment:<15 Indicative of ki dney failure. eGFR Amer 06/22/2019 12:22 PM [facility] Comment:<15 Indicative of ki dney failure. Blood Venipuncture / Unknown 06/22/2019 7:41 AM EST 06/22/2019 8:19 AM EST Narrative [facility] - 06/22/2019 12:22 PM EST GFR Normal >60 Chronic Kidney Disease <60 Kidney Failure <15 us Ming Low MD LAB BLOOD ORDERABLES Final Res ult [facility]
[address] [place] [address], * Protein, Urine, Random - Urine, Clean Catch (06/22/2019 7:41 AM EST) Total Protein, Urine 90.0 mg/dL 06/22/2019 7:24 PM EST [facility] Urine Urine specimen collection, clean catch / Unknown Collection / Unknown 06/22/2019 7:41 AM EST 06/22/2019 8:59 AM EST Narrative [facility] - 06/22/2019 7:24 PM EST Reference intervals for random urine have not been established. Clinical usage is dependent upon physician's interpretation in combination with other laboratory tests. us Ming Low MD URINE ORDERABLES Final Result Performing Organization Address [facility] Phone Number [facility]
[address] [place] [address], * (ABNORMAL) PTH, Intact (06/22/2019 7:41 AM EST) PTH, Intact 339.0(H) 15.0 - 65.0 pg/mL 06/22/2019 12:20 PM EST [facility] Blood Venipuncture / Unknown 06/22/2019 7:41 AM EST 06/22/2019 8:19 AM EST us Ming Low MD LAB BLOOD ORDERABLES Final Res ult Performing Organization Address [facility] Phone Number [facility]
[address] [place] [address], * Ferritin (06/22/2019 7:41 AM EST) Ferritin 78.20 13.00 - 150.00 ng/mL 06/22/2019 12:28 PM EST [facility] Blood Venipuncture / Unknown 06/22/2019 7:41 AM EST 06/22/2019 8:19 AM EST us Ming Low MD LAB BLOOD ORDERABLES Final Res ult Performing Organization Address [facility] Phone Number [facility]
[address] [place] [address], [place] [phone] * Creatinine, Urine, Random - Urine, Clean Catch (06/22/2019 7:41 AM EST) Creatinine, Urine 28.5 mg/dL 06/22/2019 7:24 PM EST [facility] Urine Urine specimen collection, clean catch / Unknown Collection / Unknown 06/22/2019 7:41 AM EST 06/22/2019 8:59 AM EST Narrative [facility] - 06/22/2019 7:24 PM EST Reference intervals for random urine have not been established. Clinical usage is dependent upon physician's interpretation in combination with other laboratory tests. us Ming Low MD URINE ORDERABLES Final Result Performing Organization Address [facility] Phone Number [facility]
[address] [place] [address], * (ABNORMAL) Iron Profile (06/22/2019 7:41 AM EST) Iron 45 37 - 145 mcg/dL 06/22/2019 12:22 PM EST [facility] Iron Saturation (TSAT) 10(L) 20 - 50 % 06/22/2019 12:22 PM EST [facility] Transferrin 297 200 - 360 mg/dL 06/22/2019 12:22 PM EST [facility] TIBC 443 298 - 536 mcg/dL 06/22/2019 12:22 PM EST [facility] Blood Venipuncture / Unknown 06/22/2019 7:41 AM EST 06/22/2019 8:19 AM EST us Ming Low MD LAB BLOOD ORDERABLES Final Res ult Performing Organization Address [facility] Co de Phone Number [facility]
[address] [place] [address], documented in this encounter Visit Diagnoses Diagnosis Chronic kidney disease, stage IV (severe) Chronic kidney disease, Stage IV (severe) documented in this encounter
--- OUTSIDE RECORDS SUMMARY | 2024-06-19 08:44 | XMS_ITS | Encounter Summary ---
Author Organization [facility] Address [address] [place] [address] Care Team Providers Care Christmas Tree Contractor Name Role Phone Unavailable Primary Care Provider Unavailabl e Reason for Visit * Reason Comments Oral Swelling Encounter Details Date Type Department Care Team (Late st Contact Info) Description 02/06/2020 6:15 PM EDT - 02/06/2020 7:26 PM EDT Emergency [facility] [address] [place] [id number] Christopher Aggarwal MD Finley, Paul W, [...] this encounter ED Notes * Pearl Wakefield, SCREENING TECH - 02/06/2020 7:12 PM EDT Images from [...] For this patient encounter, I reviewed the CORPORATE GIVING MANAGER or PA documentation, treatment plan, and [...]
--- OUTSIDE RECORDS SUMMARY | 2024-06-19 08:44 | XMS_ITS | Encounter Summary ---
[facility] Address [address] [place] [address] Care Team Providers Care Turret Press Operator Name Role Phone Unavailable Primary Care Provider Unavailabl e Encounter Details Date Type Department Care Team (Late st Contact Info) Description 12/03/2019 9:40 AM EDT Lab [facility] [address] [place] [address] Anemia, unspecified type; CKD stage [...] - 76.0 % 12/03/2019 7:33 PM T [facility] Lymphocyte % 29.3 19.6 - 45.3 % 12/03/2019 7:33 PM EDT [facility] Monocyte % 2.0(L) 5.0 - 12.0 % 12/03/2019 7:33 PM EDT [facility] Eosinophil % 6.1 0.3 - 6.2 % 12/03/2019 7:33 PM EDT [facility] Neutrophils Absolute 5.51 1.70 - 7.00 10*3/mm3 12/03/2019 7:33 PM T [facility] Lymphocytes Absolute 2.58 0.70 - 3.10 10*3/mm3 12/03/2019 7:33 PM EDT [facility] Monocytes Absolute 0.18 0.10 - 0.90 10*3/mm3 12/03/2019 7:33 PM T [facility] Eosinophils Absolute 0.54(H) 0.00 - 0.40 10*3/mm3 12/03/2019 7:33 PM EDT [facility] Anisocytosis Mod/2+ None Seen 12/03/2019 7:33 PM EDT [facility] WBC Morphology Normal Normal 12/03/2019 7:33 PM EDT [facility] Platelet Morphology Normal Normal 12/03/2019 7:33 PM EDT [facility] Blood Venipuncture / Unknown 12/03/2019 9:42 AM EDT 12/03/2019 10:45 AM EDT Ibrahima Talamantes MD LAB BLOOD ORDERABLES F inal Result [facility]
[address] [place] [address], * (ABNORMAL) CBC Auto Differential (12/03/2019 9:42 AM EDT) WBC 8.80 3.40 - 10.80 10*3/mm3 12/03/2019 7:33 PM EDT [facility] RBC 3.19(L) 3.77 - 5.28 10*6/mm3 12/03/2019 7:33 PM EDT [facility] Hemoglobin 9.7(L) 12.0 - 15.9 g/dL 12/03/2019 7:33 PM EDT [facility] Hematocrit 28.8(L) 34.0 - 46.6 % 12/03/2019 7:33 PM EDT [facility] MCV 90.3 79.0 - 97.0 fL 12/03/2019 7:33 PM EDT [facility] MCH 30.4 26.6 - 33.0 pg 12/03/2019 7:33 PM EDT [facility] MCHC 33.7 31.5 - 35.7 g/dL 12/03/2019 7:33 PM EDT [facility] RDW 11.8(L) 12.3 - 15.4 % 12/03/2019 7:33 PM EDT [facility] RDW-SD 38.6 37.0 - 54.0 fl 12/03/2019 7:33 PM EDT [facility] MPV 13.2(H) 6.0 - 12.0 fL 12/03/2019 7:33 PM EDT [facility] Platelets 222 140 - 450 10*3/mm3 12/03/2019 7:33 PM EDT [facility] Blood Venipuncture / Unknown 12/03/2019 9:42 AM EDT 12/03/2019 10:45 AM EDT us Ibrahima Talamantes MD LAB BLOOD ORDERABLES F inal Result Performing Organization Address [facility]/ZIP Co de Phone Number [facility]
[address] [place] [address], * Protein, Urine, Random - Urine, Clean Catch (12/03/2019 9:42 AM EDT) Total Protein, Urine 77.0 mg/dL 12/03/2019 7:50 PM EDT [facility] Urine Urine specimen collection, clean catch / Unknown Collection / Unknown 12/03/2019 9:42 AM EDT 12/03/2019 10:45 AM EDT Narrative [facility] - 12/03/2019 7:50 PM EDT Reference intervals for random urine have not been established. Clinical usage is dependent upon physician's interpretation in combination with other laboratory tests. us Ibarhima Talamantes MD URINE ORDERABLES Final Result Performing Organization Address [facility]/ZIP Co de Phone Number [facility]
[address] [place] [address], * (ABNORMAL) Renal Function Panel (12/03/2019 9:42 AM EDT) Glucose 188(H) 65 - 99 mg/dL 12/03/2019 7:38 PM EDT [facility] BUN 66(H) 6 - 20 mg/dL 12/03/2019 7:38 PM EDT [facility] Creatinine 4.07(H) 0.57 - 1.00 mg/dL 12/03/2019 7:38 PM [facility] Sodium 139 136 - 145 mmol/L 12/03/2019 7:38 PM T [facility] Potassium 4.8 3.5 - 5.2 mmol/L 12/03/2019 7:38 PM [facility] Chloride 103 98 - 107 mmol/L 12/03/2019 7:38 PM [facility] CO2 20.5(L) 22.0 - 29.0 mmol/L 12/03/2019 7:38 PM [facility] Calcium 7.1(L) 8.6 - 10.5 mg/dL 12/03/2019 7:38 PM [facility] Albumin 3.70 3.50 - 5.20 g/dL 12/03/2019 7:38 PM [facility] Phosphorus 7.1(H) 2.5 - 4.5 mg/dL 12/03/2019 7:38 PM [facility] Anion Gap 15.5(H) 5.0 - 15.0 mmol/L 12/03/2019 7:38 PM [facility] BUN/Creatinine Ratio 16.2 7.0 - 25.0 12/03/2019 7:38 PM [facility] eGFR Non Amer 13(L) >60 mL/min/1.7 3 12/03/2019 7:38 PM [facility] Comment:<15 Indicative of ki dney failure. eGFR Amer 12/03/2019 7:38 PM [facility] Comment:<15 Indicative of ki dney failure. Blood Venipuncture / Unknown 12/03/2019 9:42 AM EDT 12/03/2019 10:44 AM EDT [facility] - 12/03/2019 7:38 PM EDT GFR Normal >60 Chronic Kidney Disease <60 Kidney Failure <15 Ibrahima Talamantes MD LAB BLOOD ORDERABLES F inal Result Performing Organization Address [facility] Co de Phone Number [facility]
[address] [place] [address], * Creatinine, Urine, Random - Urine, Clean Catch (12/03/2019 9:42 AM EDT) Creatinine, Urine 27.8 mg/dL 12/03/2019 7:50 PM EDT [facility] Urine Urine specimen collection, clean catch / Unknown Collection / Unknown 12/03/2019 9:42 AM EDT 12/03/2019 10:45 AM EDT Narrative [facility] - 12/03/2019 7:50 PM EDT Reference intervals for random urine have not been established. Clinical usage is dependent upon physician's interpretation in combination with other laboratory tests. Ibrahima Talaamntes MD URINE ORDERABLES Final Result Performing Organization Address [facility] Co de Phone Number [facility]
[address] [place] [address], documented in this encounter Visit Diagnoses Diagnosis Anemia, unspecified type CKD stage G5/A3, GFR <15 and albumin creatinine ratio >300 mg/g documented in this encounter
--- OUTSIDE RECORDS SUMMARY | 2024-06-19 08:44 | XMS_ITS | Encounter Summary ---
Author Organization [facility] Address [address] [place] [address] Care Team Providers Care Business Operations Coordinator Name Role Phone Unavailable Primary Care Provider Unavailabl e Reason for Visit * Reason Comments Flu Symptoms Encounter Details Date Type Department Care Team (Late st Contact Info) Description 09/14/2019 5:20 PM EST - 09/14/2019 6:24 PM EST Emergency [facility] EM[facility] DEPARTMENT [address] [place] [phone] Krissy Bowman MD Viral upper respiratory [...] Care Everywhere. * Upper Respiratory Infection Adult Iwex-ew-Frfj ([place]) * Cough Adult ([place]) documented in this encounter Medications at Time [...] for 3 days. History provided by: Patient science interpreter used: No URI Presenting symptoms: congestion and [...] 10/17/2012 ??? SECTION ??? INDUCED 2006 [facility] History reviewed. No pertinent family [...] For this patient encounter, I reviewed the EDUCATIONAL ASSISTANT TEACHER or PA documentation, treatment plan, and medical [...] EIA Negative Negative 09/14/2019 5:45 PM EST [facility] Influenza B Ag, EIA Negative Negative 09/14/2019 5:45 PM EST [facility] Swab Nasopharyngeal structure / Unknown Collection / Unknown 09/14/2019 5:25 PM EST 09/14/2019 5:28 PM EST us Krissy Bowman MD MICROBIOLOGY - GENERAL ORDERABLES Final Result [facility]
[address] [place] [address], [place] [phone] documented in this encounter Visit Diagnoses Diagnosis Viral upper respiratory tract infection- Primary Acute upper respiratory infections of unspecified site documented in this encounter
--- OUTSIDE RECORDS SUMMARY | 2024-06-19 08:44 | XMS_ITS | Encounter Summary ---
[facility] Address [address] [place] [address] Care Team Providers Care Printing Specialist Name Role Phone Unavailable Primary Care Provider Unavailabl e Encounter Details Date Type Department Care Team (Late st Contact Info) Description 07/23/2019 10:00 AM EST Lab [facility] [address] [place] [address] Chronic kidney disease, stage V [...] Hold for add-ons. 07/23/2019 10:15 PM EST [facility] Comment:Auto resulted. Blood Venipuncture / Unknown 07/23/2019 10:03 AM EST 07/23/2019 10:44 AM EST us Mukul Stevens MD LAB BLOOD ORDERABLES F inal Result Performing Organization Address City/[facility] Co de Phone Number [facility]
[address] [place] [address], * Hepatitis B Surface Antigen (07/23/2019 10:03 AM EST) Pathologist [facility] Hepatitis B Surface Ag Non-Reacti ve Non-Reacti ve 07/23/2019 6:32 PM EST [facility] Blood Venipuncture / Unknown 07/23/2019 10:03 AM EST 07/23/2019 10:39 AM EST us Mukul Stevens MD LAB BLOOD ORDERABLES F inal Result Performing Organization Address City/[facility]/ZIP Co de Phone Number [facility]
[address] [place] [address], * Hepatitis C Antibody (07/23/2019 10:03 AM EST) Pathologist [facility] Hepatitis C Ab Non-Reacti ve Non-Reacti ve 07/23/2019 6:31 PM EST [facility] Blood Venipuncture / Unknown 07/23/2019 10:03 AM EST 07/23/2019 10:38 AM EST us Mukul Stevens MD LAB BLOOD ORDERABLES F inal Result Performing Organization Address [facility] Co de Phone Number [facility]
[address] [place] [address], * (ABNORMAL) Hepatitis B Surface Antibody (07/23/2019 10:03 AM EST) Hep B S Ab Reactive(A ) Non-Reacti ve 07/23/2019 6:31 PM EST [facility] Blood Venipuncture / Unknown 07/23/2019 10:03 AM EST 07/23/2019 10:38 AM EST Mukul Stevens MD LAB BLOOD ORDERABLES F inal Result Performing Organization Address [facility] Co de Phone Number [facility]
[address] [place] [address], documented in this encounter Visit Diagnoses Diagnosis Chronic kidney disease, stage V Chronic kidney disease, Stage V documented in this encounter
--- OUTSIDE RECORDS SUMMARY | 2024-06-19 08:44 | XMS_ITS | Encounter Summary ---
Author Organization [facility] Address [address] [place] [address] Care Team Providers Care Production Department Supervisor Name Role Phone Unavailable Primary Care Provider Unavailabl e Reason for Visit * Reason Comments Outpatient Infusion * Episode Based Medications (Routine) - Closed Specialty Diagnoses / Procedures Referred By Contac t Referred To Contact Diagnoses Chronic kidney disease, stage IV (severe) Anemia due to chronic kidney disease, unspecified CKD stage Procedures [place] [facility] Kamilla Mccullough, PharmD [address] [place] [address] Phone: tel: Referral ID Status Reason Start Date Expiration Date Visits Re quested Visits Authorized [id number] Closed 07/06/2019 08/05/2019 1 1 Encounter Details Date Type Department Care Team (Latest Contact Info) Description 07/09/2019 1:00 PM EST - 07/09/2019 11:[address] [facility] Hospital Encounter [facility] OUT[facility] [address] [facility] [place] [place] [address] Anemia due to chronic kidney disease, unspecified [...]
--- OUTSIDE RECORDS SUMMARY | 2024-06-19 08:44 | XMS_ITS | Encounter Summary ---
[facility] Address [address] [place] [address] Care Team Providers Care Superintendent Container Terminal Name Role Phone Unavailable Primary Care Provider Unavailabl e Reason for Visit * Reason Comments Chest Pain Encounter Details Date Type Department Care Team (Late st Contact Info) Description 07/28/2019 7:56 PM EST - 07/28/2019 9:45 PM EST Emergency [facility] EM[facility]GENCY DE[facility]MENT [address] [place] [phone] Christopher Aggarwal MD Bad taste in [...] Care Everywhere. * Nonspecific Chest Pain Adult Mehm-ic-Ryqo (Citizen [place]) * Gastroesophageal Reflux Disease Adult Jfve-mu-Tvfl (Citizen Of [place]) documented in this encounter [...] a few days ago she ate at [facility] and subsequently had a couple days worth of diarrhea and vomiting. She was afraid that shehad been food poisoned . She was feeling better today and went to [employer] about 3 hours prior toarrival. She states after eating at [employer] she had a gut wrenching sensation and [...] Name Type Priority Associated Diagnoses Date /Time [facility] Draw Lab STAT 07/28/2019 8 :15 PM [...] - 10.80 10*3/mm3 07/28/2019 8:24 PM EST [facility] RBC 3.23(L) 3.77 - 5.28 10*6/mm3 07/28/2019 8:24 PM [facility] Hemoglobin 9.7(L) 12.0 - 15.9 g/dL 07/28/2019 8:24 PM [facility] Hematocrit 30.1(L) 34.0 - 46.6 % 07/28/2019 8:24 PM [facility] MCV 93.2 79.0 - 97.0 fL 07/28/2019 8:24 PM [facility] MCH 30.0 26.6 - 33.0 pg 07/28/2019 8:24 PM [facility] MCHC 32.2 31.5 - 35.7 g/dL 07/28/2019 8:24 PM [facility] RDW 13.9 12.3 - 15.4 % 07/28/2019 8:24 PM [facility] RDW-SD 46.9 37.0 - 54.0 fl 07/28/2019 8:24 PM [facility] MPV 12.7(H) 6.0 - 12.0 fL 07/28/2019 8:24 PM [facility] Platelets 176 140 - 450 10*3/mm3 07/28/2019 8:24 PM [facility] Neutrophil % 53.5 42.7 - 76.0 % 07/28/2019 8:24 PM [facility] Lymphocyte % 35.6 19.6 - 45.3 % 07/28/2019 8:24 PM [facility] Monocyte % 6.8 5.0 - 12.0 % 07/28/2019 8:24 PM [facility] Eosinophil % 3.2 0.3 - 6.2 % 07/28/2019 8:24 PM [facility] Basophil % 0.4 0.0 - 1.5 % 07/28/2019 8:24 PM [facility] Immature Grans % 0.5 0.0 - 0.5 % 07/28/2019 8:24 PM [facility] Neutrophils, Absolute 2.99 1.70 - 7.00 10*3/mm3 07/28/2019 8:24 PM [facility] Lymphocytes, Absolute 1.99 0.70 - 3.10 10*3/mm3 07/28/2019 8:24 PM EST [facility] Monocytes, Absolute 0.38 0.10 - 0.90 10*3/mm3 07/28/2019 8:24 PM EST [facility] Eosinophils, Absolute 0.18 0.00 - 0.40 10*3/mm3 07/28/2019 8:24 PM EST [facility] Basophils, Absolute 0.02 0.00 - 0.20 10*3/mm3 07/28/2019 8:24 PM EST [facility] Immature Grans, Absolute 0.03 0.00 - 0.05 10*3/mm3 07/28/2019 8:24 PM EST [facility] nRBC 0.0 0.0 - 0.2 /100 WBC 07/28/2019 8:24 PM EST [facility] Blood Venipuncture / Unknown 07/28/2019 8:15 PM EST 07/28/2019 8:20 PM EST Christopher Aggarwal MD LAB BLOOD ORDERABLES Fin al Result [facility]
[address] [place] [address], * Gold Top - SST (07/28/2019 8:15 PM EST) Extra Tube Hold for add-ons. 07/28/2019 9:30 PM EST [facility] Comment:Auto resulted. Blood Venipuncture / Unknown 07/28/2019 8:15 PM EST 07/28/2019 8:20 PM EST Christopher Aggarwal MD LAB BLOOD ORDER ONLY Fin al Result [facility]
[address] [place] [address], * Lavender Top (07/28/2019 8:15 PM EST) Extra Tube hold for add-on 07/28/2019 9:30 PM EST [facility] Comment:Auto resulted Blood Venipuncture / Unknown 07/28/2019 8:15 PM EST 07/28/2019 8:20 PM EST us Christopher Aggarwal MD LAB BLOOD ORDER ONLY Fin al Result Performing Organization Address City/[facility]/ZIP Co de Phone Number [facility]
[address] [place] [address], * Green Top (Gel) (07/28/2019 8:15 PM EST) Extra Tube Hold for add-ons. 07/28/2019 9:30 PM EST [facility] Comment:Auto resulted. Blood Venipuncture / Unknown 07/28/2019 8:15 PM EST 07/28/2019 8:20 PM EST us Christopher Aggarwal MD LAB BLOOD ORDER ONLY Fin al Result Performing Organization Address [facility] de Phone Number [facility]
[address] [place] [address], * Light Blue Top (07/28/2019 8:15 PM EST) Extra Tube hold for add-on 07/28/2019 9:30 PM EST [facility] Comment:Auto resulted Blood Venipuncture / Unknown 07/28/2019 8:15 PM EST 07/28/2019 8:20 PM EST us Christopher Aggarwal MD LAB BLOOD ORDER ONLY Fin al Result Performing Organization Address City/[facility] Co de Phone Number [facility]
[address] [place] [address], * Troponin (07/28/2019 8:15 PM EST) Troponin T <0.010 0.000 - 0.030 ng/mL 07/28/2019 8:45 PM EST [facility] Blood Venipuncture / Unknown 07/28/2019 8:15 PM EST 07/28/2019 8:20 PM EST Narrative [facility] - 07/28/2019 8:45 PM EST [...] MD LAB BLOOD ORDERABLES Fin al Result [facility]
[address] [place] [address], * (ABNORMAL) Comprehensive Metabolic Panel (07/28/2019 8:15 PM EST) Glucose 210(H) 65 - 99 mg/dL 07/28/2019 8:45 PM EST [facility] Comment:Glucose >180, Hemogl obin A1C recommended. BUN 62(H) 6 - 20 mg/dL 07/28/2019 8:45 PM EST [facility] Creatinine 4.75(H) 0.57 - 1.00 mg/dL 07/28/2019 8:45 PM EST [facility] Sodium 140 136 - 145 mmol/L 07/28/2019 8:45 PM EST [facility] Potassium 4.3 3.5 - 5.2 mmol/L 07/28/2019 8:45 PM EST [facility] Chloride 104 98 - 107 mmol/L 07/28/2019 8:45 PM EST [facility] CO2 19.5(L) 22.0 - 29.0 mmol/L 07/28/2019 8:45 PM EST [facility] Calcium 7.5(L) 8.6 - 10.5 mg/dL 07/28/2019 8:45 PM [facility] Total Protein 6.7 6.0 - 8.5 g/dL 07/28/2019 8:45 PM [facility] Albumin 3.80 3.50 - 5.20 g/dL 07/28/2019 8:45 PM [facility] ALT (SGPT) 25 1 - 33 U/L 07/28/2019 8:45 PM [facility] AST (SGOT) 18 1 - 32 U/L 07/28/2019 8:45 PM [facility] Alkaline Phosphatase 57 39 - 117 U/L 07/28/2019 8:45 PM [facility] Total Bilirubin <0.2(L) 0.2 - 1.2 mg/dL 07/28/2019 8:45 PM [facility] eGFR Non Amer 11(L) >60 mL/min/1.7 3 07/28/2019 8:45 PM [facility] Comment:<15 Indicative of ki dney failure. eGFR Amer 07/28/2019 8:45 PM [facility] Comment:<15 Indicative of ki dney failure. Globulin 2.9 gm/dL 07/28/2019 8:45 PM [facility] A/G Ratio 1.3 g/dL 07/28/2019 8:45 PM [facility] BUN/Creatinine Ratio 13.1 7.0 - 25.0 07/28/2019 8:45 PM [facility] Anion Gap 16.5(H) 5.0 - 15.0 mmol/L 07/28/2019 8:45 PM [facility] Blood Venipuncture / Unknown 07/28/2019 8:15 PM EST 07/28/2019 8:20 PM EST [facility] - 07/28/2019 8:45 PM EST GFR Normal >60 Chronic Kidney Disease <60 Kidney Failure <15 Christopher Aggarwal MD LAB BLOOD ORDERABLES Fin al Result [facility]
[address] [place] [address], documented in this encounter Visit Diagnoses Diagnosis [...]
--- OUTSIDE RECORDS SUMMARY | 2024-06-19 08:44 | XMS_ITS | Encounter Summary ---
[facility] Address [address] [place] [address] Care Team Providers Care Acquisition Specialist Name Role Phone Unavailable Primary Care Provider Unavailabl e Reason for Visit * Reason Comments Fall Encounter Details Date Type Department Care Team (Late st Contact Info) Description 06/15/2019 2:26 PM EST - 06/15/2019 3:21 PM EST Emergency [facility] EM[facility] [address] [place] [phone] Jaquan Arenas DO Sprain of interphalangeal joint of right ring [...] through Care Everywhere. * Finger Sprain Adult (Macanese) * Chest Wall Pain Sben-et-Zjib (Mac[place]) documented in this encounter Medications at [...] SECTION 10/17/2012 ??? SECTION ??? INDUCED 2006 [facility] [...] For this patient encounter, I reviewed the ACQUISITION SPECIALIST or PA documentation, treatment plan, and [...]
--- OUTSIDE RECORDS SUMMARY | 2024-06-19 08:44 | XMS_ITS | Encounter Summary ---
[facility] Organization [facility] Address [address] [place] [address] Care Team Providers Care Broker Associate Name Role Phone Unavailable Primary Care Provider Unavailabl e Encounter Details Date Type Department Care Team (Late st Contact Info) Description 09/21/2019 8:45 AM EST Lab [facility] [address] [place] [address] Anemia, unspecified type Social History [...] 3.40 - 10.80 10*3/mm3 09/21/2019 7:02 PM [facility] RBC 3.22(L) 3.77 - 5.28 10*6/mm3 09/21/2019 7:02 PM [facility] Hemoglobin 10.1(L) 12.0 - 15.9 g/dL 09/21/2019 7:02 PM [facility] Hematocrit 30.0(L) 34.0 - 46.6 % 09/21/2019 7:02 PM [facility] MCV 93.2 79.0 - 97.0 fL 09/21/2019 7:02 PM [facility] MCH 31.4 26.6 - 33.0 pg 09/21/2019 7:02 PM [facility] MCHC 33.7 31.5 - 35.7 g/dL 09/21/2019 7:02 PM [facility] RDW 13.5 12.3 - 15.4 % 09/21/2019 7:02 PM [facility] RDW-SD 46.1 37.0 - 54.0 fl 09/21/2019 7:02 PM [facility] MPV 13.5(H) 6.0 - 12.0 fL 09/21/2019 7:02 PM [facility] Platelets 215 140 - 450 10*3/mm3 09/21/2019 7:02 PM [facility] Neutrophil % 69.3 42.7 - 76.0 % 09/21/2019 7:02 PM [facility] Lymphocyte % 21.6 19.6 - 45.3 % 09/21/2019 7:02 PM [facility] Monocyte % 5.3 5.0 - 12.0 % 09/21/2019 7:02 PM [facility] Eosinophil % 2.8 0.3 - 6.2 % 09/21/2019 7:02 PM [facility] Basophil % 0.4 0.0 - 1.5 % 09/21/2019 7:02 PM [facility] Immature Grans % 0.6(H) 0.0 - 0.5 % 09/21/2019 7:02 PM [facility] Neutrophils, Absolute 7.47(H) 1.70 - 7.00 10*3/mm3 09/21/2019 7:02 PM [facility] Lymphocytes, Absolute 2.32 0.70 - 3.10 10*3/mm3 09/21/2019 7:02 PM [facility] Monocytes, Absolute 0.57 0.10 - 0.90 10*3/mm3 09/21/2019 7:02 PM [facility] Eosinophils, Absolute 0.30 0.00 - 0.40 10*3/mm3 09/21/2019 7:02 PM [facility] Basophils, Absolute 0.04 0.00 - 0.20 10*3/mm3 09/21/2019 7:02 PM [facility] Immature Grans, Absolute 0.06(H) 0.00 - 0.05 10*3/mm3 09/21/2019 7:02 PM [facility] nRBC 0.1 0.0 - 0.2 /100 WBC 09/21/2019 7:02 PM [facility] Blood Venipuncture / Unknown 09/21/2019 8:47 AM EST 09/21/2019 9:29 AM EST Ibrahima Talamantes MD LAB BLOOD ORDERABLES F inal Result [facility]
[address] [place] [address], * (ABNORMAL) Renal Function Panel (09/21/2019 8:47 AM EST) Glucose 292(H) 65 - 99 mg/dL 09/21/2019 7:21 PM [facility] BUN 45(H) 6 - 20 mg/dL 09/21/2019 7:21 PM [facility] Creatinine 3.86(H) 0.57 - 1.00 mg/dL 09/21/2019 7:21 PM [facility] Sodium 140 136 - 145 mmol/L 09/21/2019 7:21 PM [facility] Potassium 4.9 3.5 - 5.2 mmol/L 09/21/2019 7:21 PM [facility] Chloride 107 98 - 107 mmol/L 09/21/2019 7:21 PM [facility] CO2 18.5(L) 22.0 - 29.0 mmol/L 09/21/2019 7:21 PM [facility] Calcium 8.1(L) 8.6 - 10.5 mg/dL 09/21/2019 7:21 PM [facility] Albumin 3.70 3.50 - 5.20 g/dL 09/21/2019 7:21 PM [facility] Phosphorus 5.2(H) 2.5 - 4.5 mg/dL 09/21/2019 7:21 PM [facility] Anion Gap 14.5 5.0 - 15.0 mmol/L 09/21/2019 7:21 PM [facility] BUN/Creatinine Ratio 11.7 7.0 - 25.0 09/21/2019 7:21 PM [facility] eGFR Non Amer 14(L) >60 mL/min/1.7 3 09/21/2019 7:21 PM [facility] Comment:<15 Indicative of ki dney failure. eGFR Amer 09/21/2019 7:21 PM [facility] Comment:<15 Indicative of ki dney failure. Blood Venipuncture / Unknown 09/21/2019 8:47 AM EST 09/21/2019 9:29 AM EST [facility] - 09/21/2019 7:21 PM EST GFR Normal >60 Chronic Kidney Disease <60 Kidney Failure <15 Ibrahima Talamantes MD LAB BLOOD ORDERABLES F inal Result Performing Organization Address [facility] Co de Phone Number [facility]
[address] [place] [address], * (ABNORMAL) Ferritin (09/21/2019 8:47 AM EST) Ferritin 564.00(H) 13.00 - 150.00 ng/mL 09/21/2019 7:28 PM EST [facility] Blood Venipuncture / Unknown 09/21/2019 8:47 AM EST 09/21/2019 9:29 AM EST Narrative [facility] - 09/21/2019 7:28 PM EST Results may be falsely decreased if patient taking Biotin. Ibrahima Talamantes MD LAB BLOOD ORDERABLES F inal Result Performing Organization Address [facility] Co de Phone Number [facility]
[address] [place] [address], * Iron Profile (09/21/2019 8:47 AM EST) Iron 76 37 - 145 mcg/dL 09/21/2019 7:21 PM EST [facility] Iron Saturation (TSAT) 25 20 - 50 % 09/21/2019 7:21 PM EST [facility] Transferrin 201 200 - 360 mg/dL 09/21/2019 7:21 PM EST [facility] TIBC 299 298 - 536 mcg/dL 09/21/2019 7:21 PM EST [facility] Blood Venipuncture / Unknown 09/21/2019 8:47 AM EST 09/21/2019 9:29 AM EST Ibrahima Talamantes MD LAB BLOOD ORDERABLES F inal Result Performing Organization Address City/[facility] Co de Phone Number [facility]
[address] [place], [place] [address] [phone] documented in this encounter Visit Diagnoses Diagnosis Anemia, unspecified type documented in this encounter
--- OUTSIDE RECORDS SUMMARY | 2024-06-19 08:44 | XMS_ITS | Encounter Summary ---
Author Organization [facility] ystem Address [address] [place] [address] Care Team Providers Care Show Host Name Role Phone Unavailable Primary Care Provider Unavailabl e Reason for Visit * Reason Comments Chest Pain Encounter Details Date Type Department Care Team (Late st Contact Info) Description 04/12/2019 8:24 PM EDT - 04/12/2019 8:56 PM EDT Emergency [facility] EM[facility] [address] [place] [phone] Emergency, Triage Protocol, [place] [address] Discharge Disposition: Left Without Being Seen Social [...] - 10.80 10*3/mm3 04/12/2019 8:56 PM EDT [facility] RBC 3.81 3.77 - 5.28 10*6/mm3 04/12/2019 8:56 PM EDT [facility] Hemoglobin 10.8(L) 12.0 - 15.9 g/dL 04/12/2019 8:56 PM EDT [facility] Hematocrit 34.7 34.0 - 46.6 % 04/12/2019 8:56 PM EDT [facility] MCV 91.1 79.0 - 97.0 fL 04/12/2019 8:56 PM EDT [facility] MCH 28.3 26.6 - 33.0 pg 04/12/2019 8:56 PM EDT [facility] MCHC 31.1(L) 31.5 - 35.7 g/dL 04/12/2019 8:56 PM EDT [facility] RDW 13.0 12.3 - 15.4 % 04/12/2019 8:56 PM EDT [facility] RDW-SD 42.8 37.0 - 54.0 fl 04/12/2019 8:56 PM EDT [facility] MPV 12.7(H) 6.0 - 12.0 fL 04/12/2019 8:56 PM EDT [facility] Platelets 252 140 - 450 10*3/mm3 04/12/2019 8:56 PM EDT [facility] Neutrophil % 61.6 42.7 - 76.0 % 04/12/2019 8:56 PM EDT [facility] Lymphocyte % 28.4 19.6 - 45.3 % 04/12/2019 8:56 PM EDT [facility] Monocyte % 5.6 5.0 - 12.0 % 04/12/2019 8:56 PM EDT [facility] Eosinophil % 3.7 0.3 - 6.2 % 04/12/2019 8:56 PM EDT [facility] Basophil % 0.4 0.0 - 1.5 % 04/12/2019 8:56 PM EDT [facility] Immature Grans % 0.3 0.0 - 0.5 % 04/12/2019 8:56 PM EDT [facility] Neutrophils, Absolute 5.99 1.70 - 7.00 10*3/mm3 04/12/2019 8:56 PM EDT [facility] Lymphocytes, Absolute 2.77 0.70 - 3.10 10*3/mm3 04/12/2019 8:56 PM EDT [facility] Monocytes, Absolute 0.55 0.10 - 0.90 10*3/mm3 04/12/2019 8:56 PM EDT [facility] Eosinophils, Absolute 0.36 0.00 - 0.40 10*3/mm3 04/12/2019 8:56 PM EDT [facility] Basophils, Absolute 0.04 0.00 - 0.20 10*3/mm3 04/12/2019 8:56 PM EDT [facility] Immature Grans, Absolute 0.03 0.00 - 0.05 10*3/mm3 04/12/2019 8:56 PM EDT [facility] nRBC 0.0 0.0 - 0.2 /100 WBC 04/12/2019 8:56 PM EDT [facility] Blood Venipuncture / Unknown 04/12/2019 8:37 PM EDT 04/12/2019 8:51 PM EDT us Triage Protocol Emergency MD LAB BLOOD ORDERABLE S Final Result [facility]
[address] [place] [address], * Gold Top - SST (04/12/2019 8:37 PM EDT) Extra Tube Hold for add-ons. 04/12/2019 10:21 PM EDT [facility] Comment:Auto resulted. Blood Venipuncture / Unknown 04/12/2019 8:37 PM EDT 04/12/2019 8:51 PM EDT Triage Protocol Emergency MD LAB BLOOD ORDER ONL Y Final Result Performing Organization Address [facility] Co de Phone Number [facility]
[address] [place] [address], * Lavender Top (04/12/2019 8:37 PM EDT) Extra Tube hold for add-on 04/12/2019 10:21 PM EDT [facility] Comment:Auto resulted Blood Venipuncture / Unknown 04/12/2019 8:37 PM EDT 04/12/2019 8:51 PM EDT Triage Protocol Emergency MD LAB BLOOD ORDER ONL Y Final Result Performing Organization Address [facility] Phone Number [facility]
[address] [place] [address], * Green Top (Gel) (04/12/2019 8:37 PM EDT) Extra Tube Hold for add-ons. 04/12/2019 10:21 PM EDT [facility] Comment:Auto resulted. Blood Venipuncture / Unknown 04/12/2019 8:37 PM EDT 04/12/2019 8:51 PM EDT Triage Protocol Emergency MD LAB BLOOD ORDER ONL Y Final Result Performing Organization Address [facility] Co de Phone Number [facility]
[address] [place] [address], * Light Blue Top (04/12/2019 8:37 PM EDT) Extra Tube hold for add-on 04/12/2019 10:21 PM EDT [facility] Comment:Auto resulted Blood Venipuncture / Unknown 04/12/2019 8:37 PM EDT 04/12/2019 8:51 PM EDT Triage Protocol Emergency MD LAB BLOOD ORDER ONL Y Final Result Performing Organization Address [facility]/ZIP Co de Phone Number [facility]
[address] [place] [address], * (ABNORMAL) BNP (04/12/2019 8:37 PM EDT) proBNP 892.6(H) 5.0 - 450.0 pg/mL 04/12/2019 9:13 PM EDT [facility] Blood Venipuncture / Unknown 04/12/2019 8:37 PM EDT 04/12/2019 8:51 PM EDT Narrative [facility] - 04/12/2019 9:13 PM EDT Among patients with dyspnea, NT-proBNP is highly sensitive for the detection of acute congestive heart failure. In addition NT-proBNP of <300 pg/ml effectively rules out acute congestive heart failure with 99% negative predictive value. us Kemi Hernandez MD LAB BLOOD ORDERABLES Final Res ult Performing Organization Address [facility] de Phone Number [facility]
[address] [place] [address], * Lipase (04/12/2019 8:37 PM EDT) Lipase 28 13 - 60 U/L 04/12/2019 9:20 PM EDT [facility] Blood Venipuncture / Unknown 04/12/2019 8:37 PM EDT 04/12/2019 8:51 PM EDT us Kemi Hernandez MD LAB BLOOD ORDERABLES Final Res ult Performing Organization Address [facility] Co de Phone Number [facility]
[address] [place] [address], [place] [phone] * (ABNORMAL) Comprehensive Metabolic Panel (04/12/2019 8:37 PM EDT) [facility] Glucose 195(H) 65 - 99 mg/dL 04/12/2019 9:20 PM EDT [facility] BUN 43(H) 6 - 20 mg/dL 04/12/2019 9:20 PM EDT [facility] Creatinine 4.04(H) 0.57 - 1.00 mg/dL 04/12/2019 9:20 PM EDT [facility] Sodium 140 136 - 145 mmol/L 04/12/2019 9:20 PM EDT [facility] Potassium 4.8 3.5 - 5.2 mmol/L 04/12/2019 9:20 PM EDT [facility] Chloride 103 98 - 107 mmol/L 04/12/2019 9:20 PM EDT [facility] CO2 22.0 22.0 - 29.0 mmol/L 04/12/2019 9:20 PM EDT [facility] Calcium 7.8(L) 8.6 - 10.5 mg/dL 04/12/2019 9:20 PM EDT [facility] Total Protein 7.2 6.0 - 8.5 g/dL 04/12/2019 9:20 PM EDT [facility] Albumin 3.90 3.50 - 5.20 g/dL 04/12/2019 9:20 PM EDT [facility] ALT (SGPT) 13 1 - 33 U/L 04/12/2019 9:20 PM EDT [facility] AST (SGOT) 10 1 - 32 U/L 04/12/2019 9:20 PM EDT [facility] Alkaline Phosphatase 63 39 - 117 U/L 04/12/2019 9:20 PM EDT [facility] Total Bilirubin <0.2(L) 0.2 - 1.2 mg/dL 04/12/2019 9:20 PM EDT [facility] eGFR Non Amer 13(L) >60 mL/min/1.7 3 04/12/2019 9:20 PM EDT [facility] Comment:<15 Indicative of ki dney failure. eGFR Amer 04/12/2019 9:20 PM EDT [facility] Comment:<15 Indicative of ki dney failure. Globulin 3.3 gm/dL 04/12/2019 9:20 PM EDT [facility] A/G Ratio 1.2 g/dL 04/12/2019 9:20 PM EDT [facility] BUN/Creatinine Ratio 10.6 7.0 - 25.0 04/12/2019 9:20 PM EDT [facility] Anion Gap 15.0 5.0 - 15.0 mmol/L 04/12/2019 9:20 PM EDT [facility] Blood Venipuncture / Unknown 04/12/2019 8:37 PM EDT 04/12/2019 8:51 PM EDT [facility] - 04/12/2019 9:20 PM EDT GFR Normal >60 Chronic Kidney Disease <60 Kidney Failure <15 Kemi Hernandez MD LAB BLOOD ORDERABLES Final Res ult [facility]
[address] [place] [address], * Troponin (04/12/2019 8:37 PM EDT) Troponin T <0.010 0.000 - 0.030 ng/mL 04/12/2019 9:17 PM EDT [facility] Blood Venipuncture / Unknown 04/12/2019 8:37 PM EDT 04/12/2019 8:51 PM EDT [facility] - 04/12/2019 9:17 PM EDT Troponin [...] MD LAB BLOOD ORDERABLES Final Res ult [facility]
[address] [place] [address], * ECG 12 Lead (04/12/2019 8:35 PM [...] Kemi Hernandez MD ECG ORDERABLES Final Result [facility] ECG documented in this encounter Visit Diagnoses Not on filedocumented in this encounter Active and Recently Administered Medications
--- OUTSIDE RECORDS SUMMARY | 2024-06-19 08:44 | XMS_ITS | Encounter Summary ---
Author Organization [facility] Address [address] [place] [address] Care Team Providers Care Skin Grader Name Role Phone Unavailable Primary Care Provider Unavailabl e Reason for Visit * Episode Based Medications (Routine) - Closed Specialty Diagnoses / Procedures Referred By Contac t Referred To Contact Diagnoses Chronic kidney disease, stage IV (severe) Anemia due to chronic kidney disease, unspecified CKD stage Procedures [place] INJ [facility]ERR[facility] 1MG Kamilla Mccullough, PharmD [address] [place] [address] Phone: tel: Referral ID Status Reason Start Date Expiration Date Visits Re quested Visits Authorized [id number] Closed 07/06/2019 08/05/2019 1 1 Encounter Details Date Type Department Care Team (Latest Contact Info) Description 07/16/2019 8:09 AM [facility] - 07/16/2019 11:59 PM [facility] Encounter [facility] [address] [facility] [address] [address] Anemia due to chronic kidney disease, unspecified [...]
--- OUTSIDE RECORDS SUMMARY | 2024-06-19 08:44 | XMS_ITS | Encounter Summary ---
Author Organization [facility] ystem Address [address] [place] [address] Care Team Providers Care Construction Supervisor Name Role Phone Unavailable Primary Care Provider Unavailabl e Reason for Visit * Reason Comments Arm Injury Bronchitis Encounter Details Date Type Department Care Team (Late st Contact Info) Description 05/07/2019 7:53 PM EDT - 05/07/2019 10:02 PM EDT Emergency [facility] EMERGENCY DEPARTMENT [address] [place] [phone] Dominik Rizo MD [address] [facility] [address] [place] [address] Sprain of right shoulder, unspecified shoulder sprain [...] sent through Care Everywhere. * Shoulder Sprain (Cypriot) documented in this encounter Medications at Time [...] For this patient encounter, I reviewed the [employer]URAL [employer] BASIS TRADER or PA documentation, treatment plan, and medical [...]
--- OUTSIDE RECORDS SUMMARY | 2024-06-19 08:45 | XMS_ITS | Encounter Summary ---
[facility] Address [address] [place] [id number] Care Team Providers Care Oral And Maxillofacial Pathologist Name Role Phone Unavailable Primary Care Provider Unavailabl e Reason for Visit * Reason Onset Date Comments Other 03/06/2019 Ayah with Disab ility Determination Encounter Details Date Type Department Care Team (Late st Contact Info) Description 03/06/[address] [facility] HEM[facility] [address] [facility] [address] [place] [address] Mare Johnston MD [address] [facility] [address] [place] [address] Other (Ayah with Disability Determination) Social History [...] REQUEST Contact: AYAH WITH DISABILITY DETERMINATIONS IN [place] CALLED REGARDING MEDICAL RECORDS REQUEST CALL AYAH BACK REGARDING THIS documented in this encounter Plan of Treatment Not on file documented as of this encounter Visit Diagnoses Not on filedocumented in this encounter
--- OUTSIDE RECORDS SUMMARY | 2024-06-19 08:45 | XMS_ITS | Encounter Summary ---
Author Organization [facility] Address [address] [place] [address] Care Team Providers Care Last Picker Name Role Phone Unavailable Primary Care Provider Unavailabl e Reason for Referral * (Emergency) - Closed Specialty Diagnoses / Procedures Referred By Contac t Referred To Contact Radiology Diagnoses Low back pain, unspecified back pain laterality, unspecified chronicity, with sciatica presence unspecified Procedures XR Spine Lumbar 4+ View XR Spine Lumbar 2 or 3 View Fabiola Guzman MD [address] [place] [address] [place] [address] Phone: tel: fax: Referral ID Status Reason Start Date Expiration Date Visits Re quested Visits Authorized [id number] Closed 01/29/2019 01/29/2020 1 1 Reason for Visit * (Emergency) - Closed Specialty Diagnoses / Procedures Referred By Contac t Referred To Contact Radiology Diagnoses Low back pain, unspecified back pain laterality, unspecified chronicity, with sciatica presence unspecified Procedures XR Spine Lumbar 4+ View XR Spine Lumbar 2 or 3 View Fabiola Guzman MD [address] [place] [address] [place] [address] Phone: tel: fax: Referral ID Status Reason Start Date Expiration Date Visits Re quested Visits Authorized [id number] Closed 01/29/2019 01/29/2020 1 1 Encounter Details Date Type Department Care Team (Latest Contact Info) Description 01/29/2019 3:33 PM EDT - 01/29/2019 11:59 PM EDT Hospital Encounter [facility] XRAY [address] [place] [address] Low back pain, unspecified back [...]
--- OUTSIDE RECORDS SUMMARY | 2024-06-19 08:45 | XMS_ITS | Encounter Summary ---
[facility] Address [address] [place] [address] Care Team Providers Care Taproom Attendant Name Role Phone Unavailable Primary Care Provider Unavailabl e Encounter Details Date Type Department Care Team (Late st Contact Info) Description 01/03/2019 11:45 AM EDT Lab [facility] [address] [place] [address] Diabetes mellitus without complication Social [...] - 4.680 mIU/mL 01/03/2019 2:07 PM EDT [facility] Blood Venipuncture / Unknown 01/03/2019 11:57 AM EDT 01/03/2019 12:53 PM EDT Julisa Bandalins VAULT ATTENDANT LAB BLOOD ORDERABLES Fin al Result Performing Organization Address [facility]/ZIP Co de Phone Number [facility]
[address] [place] [id number], * (ABNORMAL) Lipid Panel (01/03/2019 11:57 AM EDT) Total Cholesterol 151 0 - 199 mg/dL 01/03/2019 1:20 PM EDT [facility] Triglycerides 346(H) <150 mg/dL 01/03/2019 1:20 PM EDT [facility] HDL Cholesterol 31(L) 40 - 60 mg/dL 01/03/2019 1:20 PM EDT [facility] LDL Cholesterol 51 0 - 99 mg/dL 01/03/2019 1:20 PM EDT [facility] VLDL Cholesterol 69.2 mg/dL 01/04/20 1:20 PM EDT [facility] LDL/HDL Ratio 1.64 01/03/2019 1:20 PM EDT [facility] Blood Venipuncture / Unknown 01/03/2019 11:57 AM EDT 01/03/2019 12:53 PM EDT Narrative [facility] - 01/03/2019 1:20 PM EDT Reference ranges for triglycerides, VLDL cholesterol, LDL cholesterol, and HDL cholesterol are not true population normal ranges but are threshold levels for increased risk of coronary artery disease established by ATP III guidelines from the National Cholesterol Education Program. Julisa Magdalena Morales VAULT ATTENDANT LAB BLOOD ORDERABLES Fin al Result Performing Organization Address [facility]/ZIP Co de Phone Number [facility]
[address] [place] [address], * (ABNORMAL) Comprehensive Metabolic Panel (01/03/2019 11:57 AM EDT) Glucose 258(H) 74 - 98 mg/dL [facility] Comment:Glucose >180, Hemogl obin A1C recommended. BUN 46(H) 7 - 20 mg/dL 01/03/2019 1:20 PM EDT [facility] Creatinine 3.50(H) 0.60 - 1.30 mg/dL 01/03/2019 1:20 PM EDT [facility] Sodium 138 137 - 145 mmol/L 01/03/2019 1:20 PM EDT [facility] Potassium 5.0 3.5 - 5.1 mmol/L 01/03/2019 1:20 PM EDT [facility] Chloride 104 98 - 107 mmol/L 01/03/2019 1:20 PM EDT [facility] CO2 22.0(L) 26.0 - 30.0 mmol/L 01/03/2019 1:20 PM EDT [facility] Calcium 8.9 8.4 - 10.2 mg/dL 01/03/2019 1:20 PM T [facility] Total Protein 6.8 6.3 - 8.2 g/dL 01/03/2019 1:20 PM EDT [facility] Albumin 4.10 3.50 - 5.00 g/dL 01/03/2019 1:20 PM EDT [facility] ALT (SGPT) 28 13 - 69 U/L 01/03/2019 1:20 PM EDT [facility] AST (SGOT) 14(L) 15 - 46 U/L 01/03/2019 1:20 PM T [facility] Alkaline Phosphatase 67 38 - 126 U/L 01/03/2019 1:20 PM EDT [facility] Total Bilirubin 0.2 0.2 - 1.3 mg/dL 01/03/2019 1:20 PM EDT [facility] eGFR Non Amer 15(L) >60 mL/min/1.7 3 01/03/2019 1:20 PM EDT [facility] Globulin 2.7 gm/dL 01/03/2019 1:20 PM EDT [facility] A/G Ratio 1.5 1.0 - 2.0 g/dL 01/03/2019 1:20 PM EDT [facility] BUN/Creatinine Ratio 13.1 7.1 - 23.5 01/03/2019 1:20 PM EDT [facility] Anion Gap 17.0 10.0 - 20.0 mmol/L 01/03/2019 1:20 PM EDT [facility] Blood Venipuncture / Unknown 01/03/2019 11:57 AM EDT 01/03/2019 12:53 PM EDT Narrative [facility] - 01/03/2019 1:20 PM EDT GFR Normal >60 Chronic Kidney Disease <60 Kidney Failure <15 Julisa Morales VAULT ATTENDANT LAB BLOOD ORDERABLES Fin al Result [facility]
[address] [place] [address], [place] [phone] documented in this encounter Visit Diagnoses Diagnosis Diabetes mellitus without complication Type II or unspecified type diabetes mellitus without mention of complication, not stated as uncontrolled documented in this encounter
--- OUTSIDE RECORDS SUMMARY | 2024-06-19 08:45 | XMS_ITS | Encounter Summary ---
Author Organization [facility] Address [address] [place] [phone] Care Team Providers Care Director Data Analytics Name Role Phone Unavailable Primary Care Provider Unavailabl e Reason for Visit * Reason Comments Headache Encounter Details Date Type Department Care Team (Late st Contact Info) Description 01/02/2019 9:25 PM EDT - 01/02/2019 10:49 PM EDT Emergency [facility] [address] [place] [phone] Mickey Cerda MD [address] [place], [place] [id number] Headache, unspecified headache type (Primary Dx); Chills [...] Care Everywhere. * General Headache Without Cause [id number] (Polish) documented in this encounter Medications at Time [...] Seen /HPF 01/02/2019 10:12 PM EDT [facility] WBC, UA None Seen None Seen /HPF 01/02/2019 10:12 PM EDT [facility] Bacteria, UA Trace(A) None Seen /HPF 01/02/2019 10:12 PM EDT [facility] Squamous Epithelial Cells, UA 3-6(A) None Seen, 0-2 /HPF 01/02/2019 10:12 PM EDT [facility] Hyaline Casts, UA None Seen None Seen /LPF 01/02/2019 10:12 PM EDT [facility] Mucus, UA Trace None Seen, Trace /HPF 01/02/2019 10:12 PM EDT [facility] Methodology Manual Light Microscopy 01/02/2019 10:12 PM EDT [facility] Urine Urine specimen collection, clean catch / Unknown Collection / Unknown 01/02/2019 9:51 PM EDT 01/02/2019 9:58 PM EDT Mickey Cerda MD URINE ORDERABLES Final Resu lt [facility]
[address] [place] [address], * (ABNORMAL) Urinalysis With Culture If Indicated - Urine, Clean Catch (01/02/2019 9:51 PM EDT) Color, UA Yellow Yellow, Straw 01/02/2019 10:12 PM EDT [facility] Appearance, UA Clear Clear 01/02/2019 10:12 PM EDT [facility] pH, UA 6.5 5.0 - 8.0 01/02/2019 10:12 PM EDT [facility] Specific [place], UA 1.013 1.005 - 1.030 01/02/2019 10:12 PM EDT [facility] Glucose, UA 100 mg/dL (Trace)(A) Negative 01/02/2019 10:12 PM EDT [facility] Ketones, UA Negative Negative 01/02/2019 10:12 PM EDT [facility] Bilirubin, UA Negative Negative 01/02/2019 10:12 PM EDT [facility] Blood, UA Trace(A) Negative 01/02/2019 10:12 PM EDT [facility] Protein, UA >=300 mg/dL (3+)(A) Negative 01/02/2019 10:12 PM EDT [facility] Leuk Esterase, UA Negative Negative 01/02/2019 10:12 PM EDT [facility] Nitrite, UA Negative Negative 01/02/2019 10:12 PM EDT [facility] Urobilinogen, UA 0.2 E.U./dL 0.2 - 1.0 E.U./dL 01/02/2019 10:12 PM EDT [facility] Urine Urine specimen collection, clean catch / Unknown Collection / Unknown 01/02/2019 9:51 PM EDT 01/02/2019 9:58 PM EDT us Mickey Cerda MD URINE ORDERABLES Final Resu lt [facility]
[address] [place] [phone], * (ABNORMAL) CBC Auto Differential (01/02/2019 9:50 PM EDT) WBC 10.29 3.40 - 10.80 10*3/mm3 01/02/2019 10:01 PM EDT [facility] RBC 3.93 3.77 - 5.28 10*6/mm3 01/02/2019 [facility] Hemoglobin 11.2(L) 12.0 - 15.9 g/dL 01/02/2019 10:01 PM [facility] Hematocrit 34.6 34.0 - 46.6 % 01/02/2019 10:01 PM [facility] MCV 88.0 79.0 - 97.0 fL 01/02/2019 10:01 PM EDT [facility] MCH 28.5 26.6 - 33.0 pg 01/02/2019 10:01 PM EDT [facility] MCHC 32.4 31.5 - 35.7 g/dL 01/02/2019 10:01 PM EDT [facility] RDW 13.0 12.3 - 15.4 % 01/02/2019 10:01 PM [facility] RDW-SD 42.2 37.0 - 54.0 fl 01/02/2019 10:01 PM [facility] MPV 12.7(H) 6.0 - 12.0 fL 01/02/2019 10:01 PM [facility] Platelets 256 140 - 450 10*3/mm3 01/02/2019 10:01 PM [facility] Neutrophil % 53.5 42.7 - 76.0 % 01/02/2019 10:01 PM [facility] Lymphocyte % 36.2 19.6 - 45.3 % 01/02/2019 10:01 PM [facility] Monocyte % 5.5 5.0 - 12.0 % 01/02/2019 10:01 PM [facility] Eosinophil % 4.2 0.3 - 6.2 % 01/02/2019 10:01 PM [facility] Basophil % 0.3 0.0 - 1.5 % 01/02/2019 10:01 PM [facility] Immature Grans % 0.3 0.0 - 0.5 % 01/02/2019 10:01 PM [facility] Neutrophils, Absolute 5.51 1.70 - 7.00 10*3/mm3 01/02/2019 10:01 PM [facility] Lymphocytes, Absolute 3.72(H) 0.70 - 3.10 10*3/mm3 01/02/2019 10:01 PM [facility] Monocytes, Absolute 0.57 0.10 - 0.90 10*3/mm3 01/02/2019 10:01 PM [facility] Eosinophils, Absolute 0.43(H) 0.00 - 0.40 10*3/mm3 01/02/2019 10:01 PM [facility] Basophils, Absolute 0.03 0.00 - 0.20 10*3/mm3 01/02/2019 10:01 PM [facility] Immature Grans, Absolute 0.03 0.00 - 0.05 10*3/mm3 01/02/2019 10:01 PM [facility] nRBC 0.0 0.0 - 0.2 /100 WBC 01/02/2019 10:01 PM EDT [facility] Blood Venipuncture / Unknown 01/02/2019 9:50 PM EDT 01/02/2019 9:58 PM EDT Mickey Cerda MD LAB BLOOD ORDERABLES Final Result [facility]
[address] [place] [address], * (ABNORMAL) Comprehensive Metabolic Panel (01/02/2019 9:50 PM EDT) Glucose 216(H) 74 - 98 mg/dL 01/02/2019 10:20 PM EDT [facility] Comment:Glucose >180, Hemogl obin A1C recommended. BUN 44(H) 7 - 20 mg/dL 01/02/2019 10:20 PM EDT [facility] Creatinine 3.60(H) 0.60 - 1.30 mg/dL 01/02/2019 10:20 PM EDT [facility] Sodium 137 137 - 145 mmol/L 01/02/2019 10:20 PM EDT [facility] Potassium 4.2 3.5 - 5.1 mmol/L 01/02/2019 10:20 PM EDT [facility] Chloride 101 98 - 107 mmol/L 01/02/2019 10:20 PM EDT [facility] CO2 24.0(L) 26.0 - 30.0 mmol/L 01/02/2019 10:20 PM EDT [facility] Calcium 8.9 8.4 - 10.2 mg/dL 01/02/2019 10:20 PM EDT [facility] Total Protein 7.5 6.3 - 8.2 g/dL 01/02/2019 10:20 PM EDT [facility] Albumin 4.30 3.50 - 5.00 g/dL 01/02/2019 10:20 PM EDT [facility] ALT (SGPT) 24 13 - 69 U/L 01/02/2019 10:20 PM EDT [facility] AST (SGOT) 15 15 - 46 U/L 01/02/2019 10:20 PM EDT [facility] Alkaline Phosphatase 71 38 - 126 U/L 01/02/2019 10:20 PM EDT [facility] Total Bilirubin 0.2 0.2 - 1.3 mg/dL 01/02/2019 10:20 PM EDT [facility] eGFR Non Amer 15(L) >60 mL/min/1.7 3 01/02/2019 10:20 PM EDT [facility] Globulin 3.2 gm/dL 01/02/2019 10:20 PM EDT [facility] A/G Ratio 1.3 1.0 - 2.0 g/dL 01/02/2019 10:20 PM EDT [facility] BUN/Creatinine Ratio 12.2 7.1 - 23.5 01/02/2019 10:20 PM EDT [facility] Anion Gap 16.2 10.0 - 20.0 mmol/L 01/02/2019 10:20 PM EDT [facility] Blood Venipuncture / Unknown 01/02/2019 9:50 PM EDT 01/02/2019 9:58 PM EDT Narrative [facility] - 01/02/2019 10:20 PM EDT GFR Normal >60 Chronic Kidney Disease <60 Kidney Failure <15 Mickey Cerda MD LAB BLOOD ORDERABLES Final Result [facility]
[address] [place] [address], documented in this encounter Visit Diagnoses Diagnosis [...] Given 01/02/2019 9:53 PM EDT 650 mg thvrjpzxrc-uhmbmrtsrkaag-men feine (FIORICET, ESGIC) 50-325-40 MG per tablet [...] (Given - Provid er: Sarah Shaffer RN) leicwmtrci-muompimryalgi-fsjizfbq (FIORICET, ESGIC) 50-325-40 MG per tablet 1 [...]
--- OUTSIDE RECORDS SUMMARY | 2024-06-19 08:45 | XMS_ITS | Encounter Summary ---
[facility] Address [address] [place] [id number] Care Team Providers Care Forensic Audit Expert Name Role Phone Unavailable Primary Care Provider Unavailabl e Reason for Visit * Reason Comments Rash Diarrhea Encounter Details Date Type Department Care Team (Late st Contact Info) Description 12/24/2018 10:45 PM EDT - 12/25/2018 1:07 AM EDT Emergency [facility] [address] [place] [address] Phill Gama, DO [address], [place] [id number] Urinary tract infection without hematuria, site unspecified [...] closely. Contact your primary care provider and/or department clerk tomorrow to discuss your blood glucose. Recheck in 1 to 2 days with your primary care provider. Increase your fluid intake. Return to the emergency department immediately for any change or worsening of symptoms. * Attachments The following attachments cannot be sent through Care Everywhere. * Chronic Kidney Disease Adult (Chinese) * Insulin Treatment for Diabetes Mellitus (Chinese) documented in this encounter Medications at [...] ??? SECTION ??? INDUCED 2006 [facility] History reviewed. No pertinent family [...] pH, UA 7.0 5.0 - 8.0 Specific [place], UA 1.011 1.005 - 1.030 Glucose, UA [...] mL (1,000 mL Intravenous New Bag 12/24/18 4421) cefTRIAXone (ROCEPHIN) IVPB 1 g/50ml dextrose (premix) (0 g Intravenous Stopped 12/25/18 0038) ECG/EMG Results (last 24 hours) No results found for the last 24 hours. 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 ([facility]) Chronic kidney disease, stage IV (severe) ([facility]) Tinea corporis Tiago Dinh PA-C 12/25/18 0059 Tiago Dinh PA-C 12/25/18 0101 Cosigned by Phill Gama DO at 12/25/2018 2:22 AM EDT Associated attestation - Phill Gama, - 12/25/2018 2:22 AM EDT For this patient encounter, I reviewed the BRIM POUNCING MACHINE OPERATOR or PA documentation, treatment plan, [...] - 10.80 10*3/mm3 12/24/2018 11:34 PM EDT [facility] RBC 3.57(L) 3.77 - 5.28 10*6/mm3 12/24/2018 11:34 PM EDT [facility] Hemoglobin 10.6(L) 12.0 - 15.9 g/dL 12/24/2018 11:34 PM EDT [facility] Hematocrit 31.7(L) 34.0 - 46.6 % 12/24/2018 11:34 PM EDT [facility] MCV 88.8 79.0 - 97.0 fL 12/24/2018 11:34 PM EDT [facility] MCH 29.7 26.6 - 33.0 pg 12/24/2018 11:34 PM EDT [facility] MCHC 33.4 31.5 - 35.7 g/dL 12/24/2018 11:34 PM EDT [facility] RDW 12.5 12.3 - 15.4 % 12/24/2018 11:34 PM EDT [facility] RDW-SD 40.8 37.0 - 54.0 fl 12/24/2018 11:34 PM EDT [facility] MPV 13.1(H) 6.0 - 12.0 fL 12/24/2018 11:34 PM EDT [facility] Platelets 230 140 - 450 10*3/mm3 12/24/2018 11:34 PM EDT [facility] Neutrophil % 55.2 42.7 - 76.0 % 12/24/2018 11:34 PM EDT [facility] Lymphocyte % 34.8 19.6 - 45.3 % 12/24/2018 11:34 PM EDT [facility] Monocyte % 6.0 5.0 - 12.0 % 12/24/2018 11:34 PM EDT [facility] Eosinophil % 3.2 0.3 - 6.2 % 12/24/2018 11:34 PM EDT [facility] Basophil % 0.5 0.0 - 1.5 % 12/24/2018 11:34 PM EDT [facility] Immature Grans % 0.3 0.0 - 0.5 % 12/24/2018 11:34 PM EDT [facility] Neutrophils, Absolute 5.06 1.70 - 7.00 10*3/mm3 12/24/2018 11:34 PM EDT [facility] Lymphocytes, Absolute 3.19(H) 0.70 - 3.10 10*3/mm3 12/24/2018 11:34 PM EDT [facility] Monocytes, Absolute 0.55 0.10 - 0.90 10*3/mm3 12/24/2018 11:34 PM EDT [facility] Eosinophils, Absolute 0.29 0.00 - 0.40 10*3/mm3 12/24/2018 11:34 PM EDT [facility] Basophils, Absolute 0.05 0.00 - 0.20 10*3/mm3 12/24/2018 11:34 PM EDT [facility] Immature Grans, Absolute 0.03 0.00 - 0.05 10*3/mm3 12/24/2018 11:34 PM EDT [facility] nRBC 0.0 0.0 - 0.2 /100 WBC 12/24/2018 11:34 PM EDT [facility] Blood Venipuncture / Unknown 12/24/2018 11:27 PM EDT 12/24/2018 11:31 PM EDT [employer] LAB BLOOD ORDERABLES Fin al Result [facility]
[address] [place] [address], * Lactic Acid, Plasma (12/24/2018 11:27 PM EDT) [facility] Lactate 1.3 0.5 - 2.0 mmol/L 12/24/2018 11:45 PM EDT [facility] Blood Venipuncture / Unknown 12/24/2018 11:27 PM EDT 12/24/2018 11:31 PM EDT [employer] LAB BLOOD ORDERABLES Fin al Result [facility]
[address] [place] [address], * (ABNORMAL) Blood Gas, Venous (12/24/2018 11:26 PM EDT) [facility] Site OTHER 12/24/2018 11:26 PM EDT [facility] pH, Venous 7.376 7.320 - 7.420 pH Units 12/24/2018 11:26 PM EDT [facility] pCO2, Venous 44.8 40.0 - 50.0 mm Hg 12/24/2018 11:26 PM EDT [facility] pO2, Venous 23.3(L) 30.0 - 50.0 mm Hg 12/24/2018 11:26 PM EDT [facility] Comment:84 Value below refer ence range HCO3, Venous 26.3 22.0 - 28.0 mmol/L 12/24/2018 11:26 PM EDT [facility] Base Excess, Venous 0.8 0.0 - 2.0 mmol/L 12/24/2018 11:26 PM EDT [facility] O2 Saturation, Venous 38.9(L) 45.0 - 75.0 % 12/24/2018 11:26 PM EDT [facility] Comment:84 Value below refer ence range Barometric Pressure for Blood Gas 733 mmHg 12/24/2018 11:26 PM EDT [facility] Modality Room Air 12/24/2018 11:26 PM EDT [facility] FIO2 21 % 12/24/2018 11:26 PM EDT [facility] Ventilator Mode NA 9 11:26 PM EDT [facility] Comment:Meter: [id number] Electrician Apprentice: [id number] Venous Blood 12/24/2018 11:2 6 PM EDT 12/24/2018 11:26 PM EDT us Phill Gama DO LAB BLOOD ORDERABLES Final Res ult [facility]
[address] [place], [place] [address] * (ABNORMAL) Comprehensive Metabolic Panel (12/24/2018 11:26 PM EDT) [facility] Signature Glucose 311(H) 74 - 98 mg/dL 12/24/2018 11:46 PM EDT [facility] Comment:Glucose >180, Hemogl obin A1C recommended. BUN 45(H) 7 - 20 mg/dL 12/24/2018 11:46 PM [facility] Creatinine 3.30(H) 0.60 - 1.30 mg/dL 12/24/2018 11:46 PM [facility] Sodium 137 137 - 145 mmol/L 12/24/2018 11:46 PM T [facility] Potassium 5.0 3.5 - 5.1 mmol/L 12/24/2018 11:46 PM [facility] Chloride 101 98 - 107 mmol/L 12/24/2018 11:46 PM [facility] CO2 25.0(L) 26.0 - 30.0 mmol/L 12/24/2018 11:46 PM [facility] Calcium 8.1(L) 8.4 - 10.2 mg/dL 12/24/2018 11:46 PM [facility] Total Protein 6.7 6.3 - 8.2 g/dL 12/24/2018 11:46 PM [facility] Albumin 3.80 3.50 - 5.00 g/dL 12/24/2018 11:46 PM [facility] ALT (SGPT) 24 13 - 69 U/L 12/24/2018 11:46 PM [facility] AST (SGOT) 14(L) 15 - 46 U/L 12/24/2018 11:46 PM [facility] Alkaline Phosphatase 77 38 - 126 U/L 12/24/2018 11:46 PM [facility] Total Bilirubin 0.3 0.2 - 1.3 mg/dL 12/24/2018 11:46 PM [facility] eGFR Non Amer 17(L) >60 mL/min/1.7 3 12/24/2018 11:46 PM [facility] Globulin 2.9 gm/dL 12/24/2018 11:46 PM [facility] A/G Ratio 1.3 1.0 - 2.0 g/dL 12/24/2018 11:46 PM EDT [facility] BUN/Creatinine Ratio 13.6 7.1 - 23.5 12/24/2018 11:46 PM EDT [facility] Anion Gap 16.0 10.0 - 20.0 mmol/L 12/24/2018 11:46 PM EDT [facility] Blood Venipuncture / Unknown 12/24/2018 11:26 PM EDT 12/24/2018 11:31 PM EDT Narrative [facility] - 12/24/2018 11:46 PM EDT GFR Normal >60 Chronic Kidney Disease <60 Kidney Failure <15 Tiago Dinh PA-C LAB BLOOD ORDERABLES Fin al Result Performing Organization Address City/[facility]/ZIP Co de Phone Number [facility]
[address] [place] [address], * Urine Culture - Urine, Urine, Clean Catch (12/24/2018 10:55 PM EDT) Urine Culture No growth KIRA 12/26/2018 5:43 AM EDT [facility] Urine Urine specimen collection, clean catch / Unknown Collection / Unknown 12/24/2018 10:55 PM EDT 12/24/2018 10:57 PM EDT Tiago Dinh PA-C MICROBIOLOGY - GENERAL O RDERABLES Final Result [facility]
[address] [place] [address], [place] [phone] * (ABNORMAL) Urinalysis, Microscopic Only - Urine, Clean Catch (12/24/2018 10:55 PM EDT) RBC, UA None Seen None Seen /HPF 12/24/2018 11:19 PM EDT [facility] WBC, UA 0-2(A) None Seen /HPF 12/24/2018 11:19 PM EDT [facility] Bacteria, UA Trace(A) None Seen /HPF 12/24/2018 11:19 PM EDT [facility] Squamous Epithelial Cells, UA 0-2 None Seen, 0-2 /HPF 12/24/2018 11:19 PM EDT [facility] Hyaline Casts, UA None Seen None Seen /LPF 12/24/2018 11:19 PM EDT [facility] Methodology Manual Light Microscopy 12/24/2018 11:19 PM EDT [facility] Urine Urine specimen collection, clean catch / Unknown Collection / Unknown 12/24/2018 10:55 PM EDT 12/24/2018 10:57 PM EDT Tiago Dinh PA-C URINE ORDERABLES Final R esult [facility]
[address] [place] [address], * (ABNORMAL) Urinalysis With Culture If Indicated - Urine, Clean Catch (12/24/2018 10:55 PM EDT) Color, UA Dark Yellow(A) Yellow, Straw 12/24/2018 11:00 PM [facility] Appearance, UA Clear Clear 12/24/2018 11:00 PM [facility] pH, UA 7.0 5.0 - 8.0 12/24/2018 11:00 PM EDT [facility] Specific [place], UA 1.011 1.005 - 1.030 12/24/2018 11:00 PM EDT [facility] Glucose, UA 250 mg/dL (1+)(A) Negative 12/24/2018 11:00 PM EDT [facility] Ketones, UA Negative Negative 12/24/2018 11:00 PM EDT [facility] Bilirubin, UA Negative Negative 12/24/2018 11:00 PM EDT [facility] Blood, UA Negative Negative 12/24/2018 11:00 PM EDT [facility] Protein, UA 100 mg/dL (2+)(A) Negative 12/24/2018 11:00 PM EDT [facility] Leuk Esterase, UA Negative Negative 12/24/2018 11:00 PM EDT [facility] Nitrite, UA Positive(A) Negative 12/24/2018 11:00 PM EDT [facility] Urobilinogen, UA 1.0 E.U./dL 0.2 - 1.0 E.U./dL 12/24/2018 11:00 PM EDT [facility] Urine Urine specimen collection, clean catch / Unknown Collection / Unknown 12/24/2018 10:55 PM EDT 12/24/2018 10:57 PM EDT Tiago Dinh PA-C URINE ORDERABLES Final R esult [facility]
[address] [place] [address], documented in this encounter Visit Diagnoses Diagnosis [...]
--- OUTSIDE RECORDS SUMMARY | 2024-06-19 08:45 | XMS_ITS | Encounter Summary ---
[facility] Address [address] [place] [address] Care Team Providers Care Mushroom Farmer Name Role Phone Unavailable Primary Care Provider Unavailabl e Reason for Referral * Hospital - Outpatient (Emergency) - Closed Specialty Diagnoses / Procedures Referred By Contac t Referred To Contact Radiology Diagnoses Left leg pain Procedures US Venous Doppler Lower Extremity Left (duplex) Fabiola Guzman MD [address] [place] [address] [place] [address] Phone: tel: fax: Referral ID Status Reason Start Date Expiration Date Visits Re quested Visits Authorized [id number] Closed 01/29/2019 01/29/2020 1 1 Reason for Visit * Hospital - Outpatient (Emergency) - Closed Specialty Diagnoses / Procedures Referred By Contac t Referred To Contact Radiology Diagnoses Left leg pain Procedures US Venous Doppler Lower Extremity Left (duplex) Fabiola Guzman MD [address] [place] [address] [place] [address] Phone: tel: fax: Referral ID Status Reason Start Date Expiration Date Visits Re quested Visits Authorized [id number] Closed 01/29/2019 01/29/2020 1 1 Encounter Details Date Type Department Care Team (Latest Contact Info) Description 01/29/2019 3:26 PM EDT - 01/29/2019 11:59 PM EDT Hospital Encounter [address] [address] Fabiola Guzman MD [facility] [place] [address] Left leg pain Discharge Disposition: Home or [...]
--- OUTSIDE RECORDS SUMMARY | 2024-06-19 08:45 | XMS_ITS | Encounter Summary ---
Author Organization [facility] Address [address] [place] [address] Care Team Providers Care Toll Ticket Clerk Name Role Phone Unavailable Primary Care Provider Unavailabl e Reason for Visit * Reason Comments Chest Pain Hyperglycemia Encounter Details Date Type Department Care Team (Late st Contact Info) Description 01/04/2019 9:34 PM EDT - 01/05/2019 1:06 AM EDT Emergency [facility] [address] [place] [id number] Jaquan Arenas, Chest pain, unspecified type [...] through Care Everywhere. * CHEST PAIN OBSERVATION (NIUEAN) * Sinus Headache (Sudanese) documented in this encounter Medications at [...] SECTION 10/17/2012 ??? SECTION ??? INDUCED [facility] History reviewed. No pertinent family [...] For this patient encounter, I reviewed the GOLD LAYER or PA documentation, treatment plan, and [...] - 0.034 ng/mL 01/05/2019 12:40 AM EDT [facility] Blood Venipuncture / Unknown 01/05/2019 12:11 AM EDT 01/05/2019 12:14 AM EDT Narrative [facility] - 01/05/2019 12:40 AM EDT Normal Patient Upper Reference Limit (URL) (99th Percentile)=0.03 ng/mL Non-AMI Illness Reference Limit=0.03-0.11 ng/mL AMI Confirmation=0.12 ng/mL and above us Rashard Moody PA-C LAB BLOOD ORDERABL ES Final Result [facility]
[address] [id number], * (ABNORMAL) POC Glucose Once (01/05/2019 12:02 AM EDT) Glucose 238(H) 70 - 130 mg/dL 01/05/2019 12:05 AM EDT [facility] Comment:Serial Number: [id number] Blood 01/05/2019 12:0 2 AM EDT 01/05/2019 12:05 AM EDT us Jaquan Arenas DO POINT OF CARE TEST ORDERABLES F inal Result Performing Organization Address [facility] Co de Phone Number [facility]
[address] [place] [address], * (ABNORMAL) Urinalysis, Microscopic Only - Urine, Clean Catch (01/04/2019 10:12 PM EDT) RBC, UA 3-5(A) None Seen /HPF 01/04/2019 10:39 PM EDT [facility] WBC, UA None Seen None Seen /HPF 01/04/2019 10:39 PM EDT [facility] Bacteria, UA Trace(A) None Seen /HPF 01/04/2019 10:39 PM EDT [facility] Squamous Epithelial Cells, UA 3-6(A) None Seen, 0-2 /HPF 01/04/2019 10:39 PM EDT [facility] Hyaline Casts, UA None Seen None Seen /LPF 01/04/2019 10:39 PM EDT [facility] Methodology Manual Light Microscopy 01/04/2019 10:39 PM EDT [facility] Urine Urine specimen collection, clean catch / Unknown Collection / Unknown 01/04/2019 10:12 PM EDT 01/04/2019 10:17 PM EDT us Jaquan Arenas DO URINE ORDERABLES Final Result Performing Organization Address [facility]/ZIP Co de Phone Number [facility]
[address] [place] [address], [place] [phone] * Green Top (No Gel) (01/04/2019 10:12 PM EDT) Extra Tube Hold for add-ons. 01/04/2019 11:15 PM EDT [facility] Comment:Auto resulted. Blood Venipuncture / Unknown 01/04/2019 10:12 PM EDT 01/04/2019 10:18 PM EDT us Jaquan Arenas DO LAB BLOOD ORDER ONLY Final Resu lt Performing Organization Address [facility]/ZIP Co de Phone Number [facility]
[address] [id number], [place] [phone] * Gold Top - SST (01/04/2019 10:12 PM EDT) Extra Tube Hold for add-ons. 01/04/2019 11:15 PM EDT [facility] Comment:Auto resulted. Blood Venipuncture / Unknown 01/04/2019 10:12 PM EDT 01/04/2019 10:17 PM EDT us Jaquan Arenas DO LAB BLOOD ORDER ONLY Final Resu lt Performing Organization Address City/[facility]/ZIP Co de Phone Number [facility]
[address] [place] [address], [place] [phone] * Lavender Top (01/04/2019 10:12 PM EDT) Extra Tube hold for add-on 01/04/2019 11:15 PM EDT [facility] Comment:Auto resulted Blood Venipuncture / Unknown 01/04/2019 10:12 PM EDT 01/04/2019 10:17 PM EDT us Jaquan Arenas DO LAB BLOOD ORDER ONLY Final Resu lt Performing Organization Address City/[facility]/ZIP Co de Phone Number [facility]
[address] [place] [address], [place] [phone] * Green Top (Gel) (01/04/2019 10:12 PM EDT) Extra Tube Hold for add-ons. 01/04/2019 11:15 PM EDT [facility] Comment:Auto resulted. Blood Venipuncture / Unknown 01/04/2019 10:12 PM EDT 01/04/2019 10:18 PM EDT us Jaquan Arenas DO LAB BLOOD ORDER ONLY Final Resu lt Performing Organization Address [facility]/ZIP Co de Phone Number [facility]
[address] [place] [address], [place] [phone] * Light Blue Top (01/04/2019 10:12 PM EDT) Extra Tube hold for add-on 01/04/2019 11:15 PM EDT [facility] Comment:Auto resulted Blood Venipuncture / Unknown 01/04/2019 10:12 PM EDT 01/04/2019 10:18 PM EDT us Jaquan Arenas DO LAB BLOOD ORDER ONLY Final Resu lt Performing Organization Address City/[facility]/ZIP Co de Phone Number [facility]
[address] [place] [address], [place] [phone] * (ABNORMAL) Urinalysis With Microscopic If Indicated (No Culture) - Urine, Clean Catch (01/04/2019 10:12 PM EDT) Color, UA Yellow Yellow, Straw 01/04/2019 10:39 PM EDT [facility] Appearance, UA Clear Clear 01/04/2019 10:39 PM EDT [facility] pH, UA 6.0 5.0 - 8.0 01/04/2019 10:39 PM EDT [facility] Specific [place], UA 1.013 1.005 - 1.030 01/04/2019 10:39 PM EDT [facility] Glucose, UA >=1000 mg/dL (3+)(A) Negative 01/04/2019 10:39 PM EDT [facility] Ketones, UA Negative Negative 01/04/2019 10:39 PM EDT [facility] Bilirubin, UA Negative Negative 01/04/2019 10:39 PM EDT [facility] Blood, UA Trace(A) Negative 01/04/2019 10:39 PM EDT [facility] Protein, UA >=300 mg/dL (3+)(A) Negative 01/04/2019 10:39 PM EDT [facility] Leuk Esterase, UA Negative Negative 01/04/2019 10:39 PM EDT [facility] Nitrite, UA Negative Negative 01/04/2019 10:39 PM EDT [facility] Urobilinogen, UA 0.2 E.U./dL 0.2 - 1.0 E.U./dL 01/04/2019 10:39 PM EDT [facility] Urine Urine specimen collection, clean catch / Unknown Collection / Unknown 01/04/2019 10:12 PM EDT 01/04/2019 10:17 PM EDT us Jaquan Arenas DO URINE ORDERABLES Final Result Performing Organization Address City/[facility] Co de Phone Number [facility]
[address] [place] [address], * , Urine - Urine, Clean Catch (01/04/2019 10:12 PM EDT) HCG, Urine QL Negative Negative 01/04/2019 10:25 PM EDT [facility] Urine Urine specimen collection, clean catch / Unknown Collection / Unknown 01/04/2019 10:12 PM EDT 01/04/2019 10:17 PM EDT us Jaquan Arenas DO URINE ORDERABLES Final Result [facility]
[address] [place] [address], [place] [phone] * (ABNORMAL) CBC Auto Differential (01/04/2019 10:12 PM EDT) WBC 9.42 3.40 - 10.80 10*3/mm3 01/04/2019 10:21 PM EDT [facility] RBC 3.60(L) 3.77 - 5.28 10*6/mm3 01/04/2019 10:21 PM EDT [facility] Hemoglobin 10.2(L) 12.0 - 15.9 g/dL 01/04/2019 10:21 PM EDT [facility] Hematocrit 31.6(L) 34.0 - 46.6 % 01/04/2019 10:21 PM EDT [facility] MCV 87.8 79.0 - 97.0 fL 01/04/2019 10:21 PM EDT [facility] MCH 28.3 26.6 - 33.0 pg 01/04/2019 10:21 PM EDT [facility] MCHC 32.3 31.5 - 35.7 g/dL 01/04/2019 10:21 PM EDT [facility] RDW 12.8 12.3 - 15.4 % 01/04/2019 10:21 PM EDT [facility] RDW-SD 40.7 37.0 - 54.0 fl 01/04/2019 10:21 PM EDT [facility] MPV 12.7(H) 6.0 - 12.0 fL 01/04/2019 10:21 PM EDT [facility] Platelets 217 140 - 450 10*3/mm3 01/04/2019 10:21 PM EDT [facility] Neutrophil % 53.3 42.7 - 76.0 % 01/04/2019 10:21 PM EDT [facility] Lymphocyte % 34.3 19.6 - 45.3 % 01/04/2019 10:21 PM EDT [facility] Monocyte % 7.1 5.0 - 12.0 % 01/04/2019 10:21 PM EDT [facility] Eosinophil % 4.6 0.3 - 6.2 % 01/04/2019 10:21 PM EDT [facility] Basophil % 0.3 0.0 - 1.5 % 01/04/2019 10:21 PM EDT [facility] Immature Grans % 0.4 0.0 - 0.5 % 01/04/2019 10:21 PM EDT [facility] Neutrophils, Absolute 5.02 1.70 - 7.00 10*3/mm3 01/04/2019 10:21 PM EDT [facility] Lymphocytes, Absolute 3.23(H) 0.70 - 3.10 10*3/mm3 01/04/2019 10:21 PM EDT [facility] Monocytes, Absolute 0.67 0.10 - 0.90 10*3/mm3 01/04/2019 10:21 PM EDT [facility] Eosinophils, Absolute 0.43(H) 0.00 - 0.40 10*3/mm3 01/04/2019 10:21 PM EDT [facility] Basophils, Absolute 0.03 0.00 - 0.20 10*3/mm3 01/04/2019 10:21 PM EDT [facility] Immature Grans, Absolute 0.04 0.00 - 0.05 10*3/mm3 01/04/2019 10:21 PM EDT [facility] nRBC 0.0 0.0 - 0.2 /100 WBC 01/04/2019 10:21 PM EDT [facility] Blood Venipuncture / Unknown 01/04/2019 10:12 PM EDT 01/04/2019 10:17 PM EDT us Jaquan Arenas DO LAB BLOOD ORDERABLES Final Resu lt [facility]
[address] [place] [address], * Troponin (01/04/2019 10:12 PM EDT) [facility] Troponin I <0.012 0.000 - 0.034 ng/mL 01/04/2019 10:48 PM EDT [facility] Blood Venipuncture / Unknown 01/04/2019 10:12 PM EDT 01/04/2019 10:18 PM EDT Narrative [facility] - 01/04/2019 10:48 PM EDT Normal Patient Upper Reference Limit (URL) (99th Percentile)=0.03 ng/mL Non-AMI Illness Reference Limit=0.03-0.11 ng/mL AMI Confirmation=0.12 ng/mL and above us Jaquan Arenas DO LAB BLOOD ORDERABLES Final Resu lt [facility]
[address] [place] [address], * (ABNORMAL) Comprehensive Metabolic Panel (01/04/2019 10:12 PM EDT) Pathologist [facility] Glucose 320(H) 74 - 98 mg/dL 01/04/2019 10:48 PM EDT [facility] Comment:Glucose >180, Hemogl obin A1C recommended. BUN 42(H) 7 - 20 mg/dL 01/04/2019 10:48 PM EDT [facility] Creatinine 3.30(H) 0.60 - 1.30 mg/dL 01/04/2019 10:48 PM EDT [facility] Sodium 136(L) 137 - 145 mmol/L 01/04/2019 10:48 PM EDT [facility] Potassium 4.2 3.5 - 5.1 mmol/L 01/04/2019 10:48 PM EDT [facility] Chloride 102 98 - 107 mmol/L 01/04/2019 10:48 PM EDT [facility] CO2 22.0(L) 26.0 - 30.0 mmol/L 01/04/2019 10:48 PM EDT [facility] Calcium 8.1(L) 8.4 - 10.2 mg/dL 01/04/2019 10:48 PM EDT [facility] Total Protein 7.0 6.3 - 8.2 g/dL 01/04/2019 10:48 PM EDT [facility] Albumin 4.00 3.50 - 5.00 g/dL 01/04/2019 10:48 PM EDT [facility] ALT (SGPT) 23 13 - 69 U/L 01/04/2019 10:48 PM EDT [facility] AST (SGOT) 13(L) 15 - 46 U/L 01/04/2019 10:48 PM EDT [facility] Alkaline Phosphatase 71 38 - 126 U/L 01/04/2019 10:48 PM EDT [facility] Total Bilirubin 0.1(L) 0.2 - 1.3 mg/dL 01/04/2019 10:48 PM EDT [facility] eGFR Non Amer 17(L) >60 mL/min/1.7 3 01/04/2019 10:48 PM EDT [facility] Globulin 3.0 gm/dL 01/04/2019 10:48 PM EDT [facility] A/G Ratio 1.3 1.0 - 2.0 g/dL 01/04/2019 10:48 PM EDT [facility] BUN/Creatinine Ratio 12.7 7.1 - 23.5 01/04/2019 10:48 PM EDT [facility] Anion Gap 16.2 10.0 - 20.0 mmol/L 01/04/2019 10:48 PM EDT [facility] Blood Venipuncture / Unknown 01/04/2019 10:12 PM EDT 01/04/2019 10:18 PM EDT Narrative [facility] - 01/04/2019 10:48 PM EDT GFR Normal >60 Chronic Kidney Disease <60 Kidney Failure <15 us Jaquan Arenas DO LAB BLOOD ORDERABLES Final Resu lt [facility]
[address] [id number], [place] [phone] * XR Chest 2 View (01/04/2019 9:55 [...] - 130 mg/dL 01/04/2019 9:45 PM EDT [facility] Comment:Serial Number: [id number] Blood 01/04/2019 9:40 PM EDT 01/04/2019 9:45 PM EDT us Jaquan Arenas DO POINT OF CARE TEST ORDERABLES F inal Result [facility]
[address] [place] [address], documented in this encounter Visit Diagnoses Diagnosis [...]
--- OUTSIDE RECORDS SUMMARY | 2024-06-19 08:45 | XMS_ITS | Encounter Summary ---
[facility] Address [address] [place] [address] Care Team Providers Care Shrub Grower Name Role Phone Unavailable Primary Care Provider Unavailabl e Encounter Details Date Type Department Care Team (Late st Contact Info) Description 12/27/2018 4:15 PM EDT Lab [facility] [address] [place] [address] Vitamin D deficiency; Chronic kidney [...] - 10.80 10*3/mm3 12/27/2018 5:25 PM EDT [facility] RBC 3.96 3.77 - 5.28 10*6/mm3 12/27/2018 5:25 PM EDT [facility] Hemoglobin 11.4(L) 12.0 - 15.9 g/dL 12/27/2018 5:25 PM EDT [facility] Hematocrit 34.9 34.0 - 46.6 % 12/27/2018 5:25 PM EDT [facility] MCV 88.1 79.0 - 97.0 fL 12/27/2018 5:25 PM EDT [facility] MCH 28.8 26.6 - 33.0 pg 12/27/2018 5:25 PM EDT [facility] MCHC 32.7 31.5 - 35.7 g/dL 12/27/2018 5:25 PM EDT [facility] RDW 12.8 12.3 - 15.4 % 12/27/2018 5:25 PM EDT [facility] RDW-SD 40.4 37.0 - 54.0 fl 12/27/2018 5:25 PM EDT [facility] MPV 13.0(H) 6.0 - 12.0 fL 12/27/2018 5:25 PM EDT [facility] Platelets 263 140 - 450 10*3/mm3 12/27/2018 5:25 PM EDT [facility] Neutrophil % 54.8 42.7 - 76.0 % 12/27/2018 5:25 PM EDT [facility] Lymphocyte % 35.3 19.6 - 45.3 % 12/27/2018 5:25 PM EDT [facility] Monocyte % 5.6 5.0 - 12.0 % 12/27/2018 5:25 PM EDT [facility] Eosinophil % 3.4 0.3 - 6.2 % 12/27/2018 5:25 PM EDT [facility] Basophil % 0.4 0.0 - 1.5 % 12/27/2018 5:25 PM EDT [facility] Immature Grans % 0.5 0.0 - 0.5 % 12/27/2018 5:25 PM EDT [facility] Neutrophils, Absolute 5.62 1.70 - 7.00 10*3/mm3 12/27/2018 5:25 PM EDT [facility] Lymphocytes, Absolute 3.63(H) 0.70 - 3.10 10*3/mm3 12/27/2018 5:25 PM EDT [facility] Monocytes, Absolute 0.58 0.10 - 0.90 10*3/mm3 12/27/2018 5:25 PM EDT [facility] Eosinophils, Absolute 0.35 0.00 - 0.40 10*3/mm3 12/27/2018 5:25 PM EDT [facility] Basophils, Absolute 0.04 0.00 - 0.20 10*3/mm3 12/27/2018 5:25 PM EDT [facility] Immature Grans, Absolute 0.05 0.00 - 0.05 10*3/mm3 12/27/2018 5:25 PM EDT [facility] nRBC 0.0 0.0 - 0.2 /100 WBC 12/27/2018 5:25 PM EDT [facility] Blood Venipuncture / Unknown 12/27/2018 5:05 PM EDT 12/27/2018 5:19 PM EDT us Mukul Stevens MD LAB BLOOD ORDERABLES F inal Result [facility]
[address] [place] [address], [place] [phone] * (ABNORMAL) Renal Function Panel (12/27/2018 5:05 PM EDT) [facility] Glucose 82 74 - 98 mg/dL 12/27/2018 5:54 PM EDT [facility] BUN 41(H) 7 - 20 mg/dL 12/27/2018 5:54 PM EDT [facility] Creatinine 3.70(H) 0.60 - 1.30 mg/dL 12/27/2018 5:54 PM EDT [facility] Sodium 140 137 - 145 mmol/L 12/27/2018 5:54 PM EDT [facility] Potassium 4.5 3.5 - 5.1 mmol/L 12/27/2018 5:54 PM EDT [facility] Chloride 102 98 - 107 mmol/L 12/27/2018 5:54 PM EDT [facility] CO2 24.0(L) 26.0 - 30.0 mmol/L 12/27/2018 5:54 PM EDT [facility] Calcium 8.7 8.4 - 10.2 mg/dL 12/27/2018 5:54 PM EDT [facility] Albumin 4.60 3.50 - 5.00 g/dL 12/27/2018 5:54 PM EDT [facility] Phosphorus 7.3(H) 2.5 - 4.5 mg/dL 12/27/2018 5:54 PM EDT [facility] Anion Gap 18.5 10.0 - 20.0 mmol/L 12/27/2018 5:54 PM EDT [facility] BUN/Creatinine Ratio 11.1 7.1 - 23.5 12/27/2018 5:54 PM EDT [facility] eGFR Non Amer 14(L) >60 mL/min/1.7 3 12/27/2018 5:54 PM EDT [facility] Comment:<15 Indicative of ki dney failure. eGFR Amer >60 mL/min/1.7 3 12/27/2018 5:54 PM EDT [facility] Comment:<15 Indicative of ki dney failure. Blood Venipuncture / Unknown 12/27/2018 5:05 PM EDT 12/27/2018 5:19 PM EDT [facility] - 12/27/2018 5:54 PM EDT GFR Normal >60 Chronic Kidney Disease <60 Kidney Failure <15 Mukul Stevens MD LAB BLOOD ORDERABLES F inal Result Performing Organization Address City/[facility]/ZIP Co de Phone Number [facility]
[address] [place] [address], * (ABNORMAL) PTH, Intact (12/27/2018 5:05 PM EDT) PTH, Intact 201(H) 15 - 65 pg/mL 12/28/2018 4:12 PM EDT [facility] Blood Venipuncture / Unknown 12/27/2018 5:05 PM EDT 12/27/2018 5:19 PM EDT [facility] - 12/28/2018 4:12 PM EDT Performed at: ??01 - [facility] [address] ??[id number] Ornament Setter: Jacob Whaley PhD, Phone: ??[phone] Mukul Stevens MD LAB BLOOD ORDERABLES F inal Result Performing Organization Address [facility] Co de Phone Number [facility] [address] [place] [address], * Vitamin D 25 Hydroxy (12/27/2018 5:05 PM EDT) 25 Hydroxy, Vitamin D 24.7 ng/ml 12/27/2018 6:20 PM EDT [facility] Blood Venipuncture / Unknown 12/27/2018 5:05 PM EDT 12/27/2018 5:19 PM EDT [facility] - 12/27/2018 6:20 PM EDT Interpretation ?ng/mL ? Deficient ? <20 Insufficient ? 20-29 Sufficient ? 30-100 Potential Toxicity ? >100 As per:. Eryn CONNELL, Haresh KANG, Marlin BARONE, et al. Evaluation, treatment, and prevention of vitamin D deficiency: ??an Endocrine Society clinical practice guideline. JCEM. 2011 Jan; 96(7):1911-30. us Mukul Stevens MD LAB BLOOD ORDERABLES F inal Result [facility]
[address] [place] [address], [place] [phone] documented in this encounter Visit Diagnoses Diagnosis Vitamin D deficiency Chronic kidney disease, stage IV (severe) Chronic kidney disease, Stage IV (severe) Hyperparathyroidism, secondary documented in this encounter
--- OUTSIDE RECORDS SUMMARY | 2024-06-19 08:45 | XMS_ITS | Encounter Summary ---
Author Organization [facility] Address [address] [place] [address] Care Team Providers Care Emergency Room Physician Assistant Name Role Phone Unavailable Primary Care Provider Unavailabl e Reason for Visit * Reason Comments Nasal Congestion Sore Throat Encounter Details Date Type Department Care Team (Late st Contact Info) Description 03/12/2019 8:03 PM EDT - 03/12/2019 10:15 PM EDT Emergency [facility] [address] [place] [id number] Dominik Rizo MD [address] [place] [address] Upper respiratory tract infection, unspecified type (Primary [...] Continue your nasal spray as directed. Take mano-qhu-sliqaui Tylenol 500 mg every 6 hours for headache. Drink plenty of fluids to help stay hydrated and thin the mucus. Take fyca-muu-zigizjh medication such as DayQuil or NyQuil as [...] sent through Care Everywhere. * Sore Throat (Lithuanian) * Viral Respiratory Infection (Lithuanian) documented in this encounter Medications at [...] Chronic constipation ??? Depression ??? Diabetes mellitus ([facility]) ??? Excessive thirst ??? H/O [...] For this patient encounter, I reviewed the DRAFTER STRUCTURAL or PA documentation, treatment plan, and medical [...] Streptococcus Isolated KIRA 03/14/2019 10:33 AM EDT [facility] Swab Specimen from throat / Unknown Collection / Unknown 03/12/2019 9:11 PM EDT 03/12/2019 9:14 PM EDT Narrative [facility] - 03/14/2019 10:33 AM EDT Group A Strep incidence is low in adults. Positive culture for Beta hemolytic Streptococcus species can reflect colonization and not true infection. Please correlate clinically. Sierra MENDEZ-C MICROBIOLOGY - GENERAL ORDE RABLES Final Result [facility]
[address] [place] [address], * Rapid Strep A Screen - Swab, Throat (03/12/2019 9:11 PM EDT) Strep A Ag Negative Negative 03/12/2019 9:28 PM EDT [facility] Swab Specimen from throat / Unknown Collection / Unknown 03/12/2019 9:11 PM EDT 03/12/2019 9:14 PM EDT Sierra MENDEZ-C MICROBIOLOGY - GENERAL ORDE RABLES Final Result Performing Organization Address City/[facility]/ZIP Co de Phone Number [facility]
[address] [place] [address], [place] [phone] * Influenza Antigen, Rapid - Swab, Nasopharynx (03/12/2019 9:10 PM EDT) Influenza A Ag, EIA Negative Negative 03/12/2019 9:26 PM EDT [facility] Influenza B Ag, EIA Negative Negative 03/12/2019 9:26 PM EDT [facility] Swab Nasopharyngeal structure / Unknown Collection / Unknown 03/12/2019 9:10 PM EDT 03/12/2019 9:14 PM EDT Sierra MENDEZ-C MICROBIOLOGY - GENERAL ORDE RABLES Final Result Performing Organization Address City/[facility]/ZIP Co de Phone Number [facility]
[address] [place] [address], [place] [phone] documented in this encounter Visit Diagnoses Diagnosis [...] of 7-10, CPOT [phone] (Given - [facility] er: Ela Hansen RN) documented in this encounter
--- OUTSIDE RECORDS SUMMARY | 2024-06-19 08:45 | XMS_ITS | Encounter Summary ---
[facility] Address [address] [place] [address] Care Team Providers Care Air Conditioning Manager Name Role Phone Unavailable Primary Care Provider Unavailabl e Reason for Visit * (Emergency) - Closed Specialty Diagnoses / Procedures Referred By Xochitl t Referred To Contact Radiology Diagnoses Left leg pain Procedures XR Tibia Fibula 2 View Left Thomas, Fabiola Villafuerte MD [address] [place] [phone] Phone: tel: fax: Referral ID Status Reason Start Date Expiration Date Visits Re quested Visits Authorized [id number] Closed 01/29/2019 01/29/2020 1 1 Encounter Details Date Type Department Care Team (Latest Contact Info) Description 01/29/2019 3:33 PM EDT - 01/29/2019 11:59 PM EDT Hospital Encounter [facility] [address] [place] [id number] Discharge Disposition: Home or Self [...]
--- OUTSIDE RECORDS SUMMARY | 2024-06-19 08:45 | XMS_ITS | Encounter Summary ---
Author Organization [facility] ystem Address [address] [place] [id number] Care Team Providers Care Locomotive Operator Name Role Phone Unavailable Primary Care Provider Unavailabl e Reason for Visit * Reason Comments Headache Encounter Details Date Type Department Care Team (Late st Contact Info) Description 02/13/2019 7:53 PM EDT - 02/13/2019 9:20 PM EDT Emergency [facility] EMERGENCY DEPARTMENT [address] [place] [address] hPill Gama, DO [address] [place], [place] [id number] Folliculitis (Primary Dx); Nonintractable headache, unspecified chronicity [...] Care Everywhere. * General Headache Without Cause Pnvy-os-Ljbn (Peruvian) documented in this encounter Medications at [...] unspecified headache type Rashard Moody PA-C 02/13/19 [id number] Cosigned by Phill Gama DO at 02/13/2019 10:54 PM EDT Associated attestation - Phill Gama DO - 02/13/2019 10:54 PM EDT For this patient encounter, I reviewed the SOLE BLACKER or PA documentation, treatment plan, and medical [...] MAR Action Action Date Dose Rate Site ptfdiwhomt-wxqihoxcheylv-zsslknm e (FIORICET, ESGIC) 50-325-40 MG per tablet [...] EDT. Scheduled Medication Order 02/11/2019 02/12/2019 02/13/2019 [id number] (FIORICET, ESGIC) 50-325-40 MG per tablet 1 [...]
--- OUTSIDE RECORDS SUMMARY | 2024-06-19 08:45 | XMS_ITS | Encounter Summary ---
Author Organization [facility] ystem Address [address] [place] [address] Care Team Providers Care Chief Fundraising Officer Name Role Phone Unavailable Primary Care Provider Unavailabl e Reason for Visit * Reason Comments Foot Injury Encounter Details Date Type Department Care Team (Late st Contact Info) Description 12/23/2018 4:42 PM EDT - 12/23/2018 6:50 PM EDT Emergency [facility] EMERGENCY DEPARTMENT [address] [place] [phone] Christopher Aggarwal MD Contusion of right [...] be sent through Care Everywhere. * Contusion Megh-bw-Rgso (Cymraes) documented in this encounter Medications at Time [...] For this patient encounter, I reviewed the WATER TREATMENT SPECIALIST or PA documentation, treatment plan, and [...] Laterality Modality Lower Extremities, Foot Right [facility] 12/23/2018 6:26 PM EDT Impressions [...] M.D. on 12/23/2018 06:26:58 PM Pearl Yanezhead RESOURCE ECONOMIST IMG DIAGNOSTIC IMAGING OR DERABLES Final Result [...]
--- OUTSIDE RECORDS SUMMARY | 2024-06-19 08:45 | XMS_ITS | Encounter Summary ---
Author Organization [facility] ystem Address [address] [place] [address] Care Team Providers Care Human Capital Analyst Name Role Phone Unavailable Primary Care Provider Unavailabl e Reason for Visit * Reason Comments Fall Encounter Details Date Type Department Care Team (Late st Contact Info) Description 01/27/2019 6:41 PM EDT - 01/27/2019 9:02 PM EDT Emergency [facility] EMERGENCY DEPARTMENT [address] [place] [phone] Jaquan Arenas, Krissy Higginbotham MD Contusion [...] sent through Care Everywhere. * Rib Contusion (Martiniquais) * Knee Sprain Adult (Martiniquais) documented in this encounter Medications at Time [...] that she fell on water while at [employer]. She hit the right side of her ribs on a wire in bucket when she fell. She is also complained of left knee pain that twisted underneath her. No head or neck injury no loss of consciousness, she arrived via EMS. History provided by: Patient log scaler used: No Review of Systems Musculoskeletal: Right [...] of left knee, unspecified ligament, initial encounter Miakol Quiroz Jr., PA-C 01/27/192023 Cosigned by Krissy Bowman MD at 01/27/2019 8:44 PM EDT Associated attestation - Krissy Bowman MD - 01/27/2019 8:44 PM EDT For this patient encounter, I reviewed the PUBLIC HEALTH OFFICER or PA documentation, treatment plan, and [...] 01/27/2019 07:40:30 PM Maikol Quiroz Jr., PA-C [facility] ORDERABLES Fin mo Result * XR Knee 3 View Left (01/27/2019 7:19 PM EDT) Anatomical Region Laterality Modality Lower Extremities, Knee Left [facility] Imaging 01/28/2019 7:08 AM EDT Impressions 01/28/2019 [...]
--- OUTSIDE RECORDS SUMMARY | 2024-06-19 08:45 | XMS_ITS | Encounter Summary ---
[facility] Address [address] [place] [address] Care Team Providers Care Credit Card Control Clerk Name Role Phone Unavailable Primary Care Provider Unavailabl e Reason for Referral * (Emergency) - Closed Specialty Diagnoses / Procedures Referred By Contac t Referred To Contact Radiology Diagnoses Left leg pain Procedures XR Tibia Fibula 2 View Left Fabiola Guzman MD [address] [place] [address] [place] [address] Phone: tel: fax: Referral ID Status Reason Start Date Expiration Date Visits Re quested Visits Authorized [id number] Closed 01/29/2019 01/29/2020 1 1 Reason for Visit * (Emergency) - Closed Specialty Diagnoses / Procedures Referred By Contac t Referred To Contact Radiology Diagnoses Pain of left hip joint Procedures XR Hip With or Without Pelvis 2 - 3 View Left XR Hip With or Without Pelvis 4 View Left Fabiola Guzman MD [address] [place] [address] [place] [address] Phone: tel: fax: Referral ID Status Reason Start Date Expiration Date Visits Re quested Visits Authorized [id number] Closed 01/29/2019 01/29/2020 1 1 Encounter Details Date Type Department Care Team (Latest Contact Info) Description 01/29/2019 3:26 PM EDT - 01/29/2019 11:59 PM EDT Hospital Encounter [facility] XRAY [address] [place] [address] Left leg pain; Low back [...] finalized on 01/30/2019 7:38 AM by Surendra iPke MD. Narrative 01/30/2019 7:38 AM EDT PELVIS, [...]
--- OUTSIDE RECORDS SUMMARY | 2024-06-19 08:45 | XMS_ITS | Encounter Summary ---
[facility] Address [address] [place] [address] Care Team Providers Care Ui Developer Designer Name Role Phone Unavailable Primary Care Provider Unavailabl e Encounter Details Date Type Department Care Team (Late st Contact Info) Description 03/05/2019 4:20 PM EDT Lab [facility] [address] [place] [phone] Secondary hyperparathyroidism; Chronic kidney disease, [...] Seen, 0-2 /HPF 03/05/2019 11:07 PM EDT [facility] WBC, UA 0-2 None Seen, 0-2 /HPF 03/05/2019 11:07 PM EDT [facility] Bacteria, UA 1+(A) None Seen /HPF 03/05/2019 11:07 PM EDT [facility] Squamous Epithelial Cells, UA 0-2 None Seen, 0-2 /HPF 03/05/2019 11:07 PM EDT [facility] Hyaline Casts, UA 0-2 None Seen /LPF 03/05/2019 11:07 PM EDT [facility] Methodology Automated Microscopy 03/05/2019 11:07 PM EDT [facility] Urine Urine specimen collection, clean catch / Unknown Collection / Unknown 03/05/2019 4:49 PM EDT 03/05/2019 6:39 PM EDT us Maria A Soria CHILD ADOLESCENT PSYCHIATRIST URINE ORDERABLES Final Resu lt [facility]
[address] [place] [address], * (ABNORMAL) Urinalysis without microscopic (no culture) - Urine, Clean Catch (03/05/2019 4:49 PM EDT) Color, UA Yellow Yellow, Straw 03/05/2019 10:57 PM EDT [facility] Appearance, UA Clear Clear 03/05/2019 10:57 PM EDT [facility] pH, UA 7.5 5.0 - 8.0 03/05/2019 10:57 PM EDT [facility] Specific [place], UA 1.011 1.005 - 1.030 03/05/2019 10:57 PM EDT [facility] Glucose, UA 100 mg/dL (Trace)(A) Negative 03/05/2019 10:57 PM EDT [facility] Ketones, UA Negative Negative 03/05/2019 10:57 PM EDT [facility] Bilirubin, UA Negative Negative 03/05/2019 10:57 PM EDT [facility] Blood, UA Negative Negative 03/05/2019 10:57 PM EDT [facility] Protein, UA >=300 mg/dL (3+)(A) Negative 03/05/2019 10:57 PM EDT [facility] Leuk Esterase, UA Negative Negative 03/05/2019 10:57 PM EDT [facility] Nitrite, UA Negative Negative 03/05/2019 10:57 PM EDT [facility] Urobilinogen, UA 0.2 E.U./dL 0.2 - 1.0 E.U./dL 03/05/2019 10:57 PM EDT [facility] Urine Urine specimen collection, clean catch / Unknown Collection / Unknown 03/05/2019 4:49 PM EDT 03/05/2019 6:39 PM EDT us Maria A Soria CHILD ADOLESCENT PSYCHIATRIST URINE ORDERABLES Final Resu lt [facility]
[address] [place] [address], * Urine Culture - Urine, Urine, Clean Catch (03/05/2019 4:49 PM EDT) Urine Culture No growth KIRA 03/06/2019 7:02 PM EDT [facility] Urine Urine specimen collection, clean catch / Unknown Collection / Unknown 03/05/2019 4:49 PM EDT 03/05/2019 6:39 PM EDT Maria A Soria APRN MICROBIOLOGY - GENERAL ORDE RABJESSICA Final Result Performing Organization Address [facility]/ZIP Co de Phone Number [facility]
[address] [place] [address], * (ABNORMAL) Vitamin D 25 Hydroxy (03/05/2019 4:49 PM EDT) Pathologist [facility] 25 Hydroxy, Vitamin D 11.5(L) 30.0 - 100.0 ng/ml 03/05/2019 10:48 PM EDT [facility] Blood Venipuncture / Unknown 03/05/2019 4:49 PM EDT 03/05/2019 6:40 PM EDT Narrative [facility] - 03/05/2019 10:48 PM EDT Reference Range for Total Vitamin D 25(OH) Deficiency <20.0 ng/mL Insufficiency 21-29 ng/mL Sufficiency 30-100 ng/mL Toxicity >100 ng/ml Maria A Soria APRN LAB BLOOD ORDERABLES Final Result Performing Organization Address City/[facility]/ZIP Co de Phone Number [facility]
[address] [place] [address], * (ABNORMAL) Renal Function Panel (03/05/2019 4:49 PM EDT) Glucose 191(H) 65 - 99 mg/dL 03/05/2019 10:31 PM EDT [facility] BUN 35(H) 6 - 20 mg/dL 03/05/2019 10:31 PM EDT [facility] Creatinine 3.73(H) 0.57 - 1.00 mg/dL 03/05/2019 10:31 PM [facility] Sodium 138 136 - 145 mmol/L 03/05/2019 10:31 PM T [facility] Potassium 4.6 3.5 - 5.2 mmol/L 03/05/2019 10:31 PM [facility] Chloride 98 98 - 107 mmol/L 03/05/2019 10:31 PM [facility] CO2 24.2 22.0 - 29.0 mmol/L 03/05[facility]2019 10:[facility] Calcium 8.9 8.6 - 10.5 mg/dL 03/05/2019 10:31 PM [facility] Albumin 4.10 3.50 - 5.20 g/dL 03/05/2019 10:31 PM [facility] Phosphorus 4.4 2.5 - 4.5 mg/dL 03/05/2019 10:31 PM [facility] Anion Gap 15.8(H) 5.0 - 15.0 mmol/L 03/05/2019 10:31 PM [facility] BUN/Creatinine Ratio 9.4 7.0 - 25.0 03/05/2019 10:31 PM T [facility] eGFR Non Amer 14(L) >60 mL/min/1.7 3 03/05/2019 10:31 PM [facility] Comment:<15 Indicative of ki dney failure. eGFR Amer >60 mL/min/1.7 3 03/05/2019 10:31 PM [facility] Comment:<15 Indicative of ki dney failure. Blood Venipuncture / Unknown 03/05/2019 4:49 PM EDT 03/05/2019 6:40 PM EDT [facility] - 03/05/2019 10:31 PM EDT GFR Normal >60 Chronic Kidney Disease <60 Kidney Failure <15 Maria A Soria CHILD ADOLESCENT PSYCHIATRIST LAB BLOOD ORDERABLES Final Result Performing Organization Address City/[facility] Co de Phone Number [facility]
[address] [place] [address], * (ABNORMAL) PTH, Intact (03/05/2019 4:49 PM EDT) PTH, Intact 257.0(H) 15.0 - 65.0 pg/mL 03/05/2019 10:54 PM EDT [facility] Blood Venipuncture / Unknown 03/05/2019 4:49 PM EDT 03/05/2019 6:40 PM EDT Maria A Soria APRN LAB BLOOD ORDERABLES Final Result Performing Organization Address [facility] de Phone Number [facility]
[address] [place] [address], documented in this encounter Visit Diagnoses Diagnosis Secondary hyperparathyroidism Secondary hyperparathyroidism (of renal origin) Chronic kidney disease, stage IV (severe) Chronic kidney disease, Stage IV (severe) Urinary tract infection without hematuria, site unspecified documented in this encounter
--- OUTSIDE RECORDS SUMMARY | 2024-06-19 08:46 | XMS_ITS | Encounter Summary ---
Author Organization [facility] ystem Address [address] [place] [address] Care Team Providers Care Cash Room Clerk Name Role Phone Unavailable Primary Care Provider Unavailabl e Reason for Visit * Reason Comments Arm Pain Encounter Details Date Type Department Care Team (Late st Contact Info) Description 09/09/2018 11:51 PM EST - 09/10/2018 12:50 AM EST Emergency [facility] EMERGENCY DEPARTMENT [address] [place] [phone] Dominik Rizo MD [address] [place] [address] Arm fracture, left, sequela (Primary Dx) Discharge [...] Everywhere. * Cast or Splint Care Adult Zljv-ag-Zcwc (Brazilian) documented in this encounter Medications at Time [...] herself. States she then went to the [place] emergency department 2 days ago where they put a splint on her that she thought was too flimsy so she took it off. She states her arm was hurting her today so [facility] [...] Procedure Name Priority Date/Time Associated Diagnosis Comments [place] APPLICATION LONG ARM SPLINT SHOULDER HAND Routine 09/10/2018 12:49 AM EST documented in this encounter Results * [place] APPLICATION LONG ARM SPLINT SHOULDER HAND (09/10/2018 [...]
--- OUTSIDE RECORDS SUMMARY | 2024-06-19 08:46 | XMS_ITS | Encounter Summary ---
[facility] Address [address] [place] [address] Care Team Providers Care Precinct I Police Sergeant Name Role Phone Unavailable Primary Care Provider Unavailabl e Reason for Visit * Reason Comments Abdominal Pain * Auth/Cert Specialty Diagnoses / Procedures Referred By Contac t Referred To Contact Diagnoses Pyelonephritis, acute Pyelonephritis, acute Procedures - Referral ID Status Reason Start Date Expiration Date Visits Re quested Visits Authorized [id number] 1 1 Encounter Details Date Type Department Care Team (Latest Contact Info) Description 07/21/2018 4:45 PM EST - 07/22/2018 7:55 PM [facility] Hospital Encounter [facility] TELEMETRY 3 [address] [place] [address] Christopher Aggarwal MD Gilbert, Cody B, DO [address] [place] [address] Jarred Bauman MD [address] [place], [place] [id number] Pyelonephritis, acute (Primary Dx); Acute renal failure [...] original note were not included. [facility] DISCHARGE SUMMARY Name: Crystal Archer Age: 27 y.o. Sex: female : 1990 Visit Number: [id number] Admission Date: 07/21/2018 Date of Discharge: 07/22/2018 [...] Patient did have a renal biopsy at [facility] on 06/13/2018 and the pathology report [...] and currently follows up with endocrinology at [facility]. She has insulin pump. Hospital Course: [...] Units Date/Time CT Abdomen Pelvis Without Contrast [[id number]] Collected: 07/21/182029 Updated: 07/21/182030 Narrative: FINAL REPORT [...] 2 day(s). Specialty: Family Medicine Contact information: [address] [place] [address] [place] [address] Test Results Pending at Discharge: Order Current Status Hemoglobin A1c In process PTH, Intact In process Urine Culture - Urine, Urine, Clean Catch In process Blood Culture With ADITYA - Blood, Arm, Right Preliminary result Jarred Bauman MD 07/22/18 7:47 PM Time spent: 20 min. Dictated utilizing Peppercoin[employer] dictation. documented in this encounter Medications at [...] original note were not included. [facility] Name: Crystal Archer Age: 27 y.o. Sex: female : 1990 Visit Number: [id number] Admission Date: 07/21/2018 Date Of Service: 07/22/18 [...] Units Date/Time CT Abdomen Pelvis Without Contrast [[id number]] Collected: 07/21/182029 Updated: 07/21/182030 Narrative: FINAL REPORT [...] original note were not included. [facility] HISTORY AND PHYSICAL Name: Crystal Archer Age: 27 y.o. Sex: female : 1990 Visit Number: [id number] Admission Date: 07/21/2018 Date Of Service: 07/21/18 [...] Patient did have a renal biopsy at [facility] on 06/13/2018 and the pathology report [...] and currently follows up with endocrinology at [facility]. She has insulin pump. Review Of [...] Units Date/Time CT Abdomen Pelvis Without Contrast [[id number]] Collected: 07/21/182029 Updated: 07/21/182030 Narrative: FINAL REPORT [...] from the original note were not included. 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 and emulsifiers the renal function was described as less [...] Component Value Units Date/Time Basic Metabolic Panel [[id number]] (Abnormal) Collected: 07/22/18701 Specimen: Blood Updated: 07/22/18737 Glucose 86 mg/dL BUN 46 mg/dL Creatinine 3.30 mg/dL Sodium 139 mmol/L Potassium 4.8 mmol/L Chloride 116 mmol/L CO2 15.0 mmol/L Calcium 8.1 mg/dL eGFR Non Amer 17 mL/min/1.73 BUN/Creatinine Ratio 13.9 Anion Gap 12.8 mmol/L Narrative: GFR Normal >60 Chronic Kidney Disease <60 Kidney Failure <15 CBC Auto Differential [[id number]] (Abnormal) Collected: 07/22/18701 Specimen: Blood Updated: 07/22/18737 [...] nRBC 0.0 /100 WBC POC Glucose Once [[id number]] (Normal) Collected: 07/22/18645 Specimen: Blood Updated: 07/22/18649 Glucose 92 mg/dL Comment: Serial Number: [id number]: [id number] Procalcitonin [[id number]] (Abnormal) Collected: 07/21/182336 Specimen: Blood Updated: 07/22/18104 [...] 2 ng/mL are obtained. Basic Metabolic Panel [[id number]] (Abnormal) Collected: 07/21/182336 Specimen: Blood Updated: 07/22/18 001 Glucose 103 mg/dL BUN 47 mg/dL Creatinine 3.50 mg/dL Sodium 137 mmol/L Potassium 5.6 mmol/L Chloride 114 mmol/L CO2 12.0 mmol/L Calcium 8.8 mg/dL eGFR Non Amer 16 mL/min/1.73 BUN/Creatinine Ratio 13.4 Anion Gap 16.6 mmol/L Narrative: GFR Normal >60 Chronic Kidney Disease <60 Kidney Failure <15 Lactic Acid, Plasma [[id number]] (Normal) Collected: 07/21/182336 Specimen: Blood Updated: 07/22/18 0007 Lactate 1.0 mmol/L Blood Culture With ADITYA - Blood, Arm, Right [[id number]] Collected: 07/21/18 2344 Specimen: Blood from Arm, Right Updated: 07/21/18 2359 POC Glucose Once [[id number]] (Normal) Collected: 07/21/18 2323 Specimen: Blood Updated: 07/21/18 2330 Glucose 100 mg/dL Comment: Serial Number: [id number] Hemoglobin A1c [[id number]] Collected: 07/21/181749 Specimen: Blood Updated: 07/21/18 223 POC Glucose Once [[id number]] (Normal) Collected: 07/21/182145 Specimen: Blood Updated: 07/21/182149 Glucose 90 mg/dL Comment: Serial Number: [id number] Urine Culture - Urine, Urine, Clean Catch [[id number]] Collected: 07/21/181749 Specimen: Urine, Clean Catch Updated: 07/21/182123 Urinalysis, Microscopic Only - Urine, Clean Catch [[id number]] (Abnormal) Collected: 07/21/181749 Specimen: Urine, Clean Catch Updated: 07/21/181819 RBC, UA 3-5 /HPF WBC, UA 31-50 /HPF Bacteria, UA 1+ /HPF Squamous Epithelial Cells, UA 0-2 /HPF Hyaline Casts, UA None Seen /LPF WBC Clumps, UA Small/1+ /HPF Methodology Manual Light Microscopy Comprehensive Metabolic Panel [[id number]] (Abnormal) Collected: 07/21/181749 Specimen: Blood Updated: 07/21/181819 [...] Indicated (No Culture) - Urine, Clean Catch [[id number]] (Abnormal) Collected: 07/21/181749 Specimen: Urine, Clean Catch Updated: 07/21/181809 Color, UA Straw Appearance, UA Slightly Cloudy pH, UA 5.5 Specific Monroe, UA 1.025 Glucose, UA Negative Ketones, UA Negative Bilirubin, UA Negative Blood, UA Trace Protein, UA >=300 mg/dL (3+) Leuk Esterase, UA Negative Nitrite, UA Negative Urobilinogen, UA 0.2 E.U./dL , Urine - Urine, Clean Catch [[id number]] (Normal) Collected: 07/21/181749 Specimen: Urine, Clean Catch Updated: 07/21/181805 HCG, Urine QL Negative CBC & Differential [[id number]] Collected: 07/21/181749 Specimen: Blood Updated: 07/21/181804 Narrative: The following orders were created for panel order CBC & Differential. Procedure Abnormality Status --------- ------ CBC Auto Differential[[id number]] Abnormal Final result Please view results for these tests on the individual orders. CBC Auto Differential [[id number]] (Abnormal) Collected: 07/21/181749 Specimen: Blood Updated: 07/21/181804 [...] Units Date/Time CT Abdomen Pelvis Without Contrast [[id number]] Collected: 07/21/182029 Updated: 07/21/182030 Narrative: FINAL REPORT [...] she is leaving, pt removed telemetry herself. steam powerplant supervisor Rabia informed. IV removed cathlon intact. [...] 15 however recently had renal biopsy at [facility] 05/2018 showing Stage III-IV kidney failure [...] Strapping Date/Time: 07/22/2018 12:13 AM Performed by: Rahsard Moody PA-C Authorized by: Phill Gama DO [...] Course User Index [MP] Christopher Aggarwal MD [facility] Final diagnoses: Pyelonephritis, acute Acute renal failure superimposed on chronic kidney disease, unspecified CKD stage, unspecified acute renal failure type ([facility]) Rashard Moody PA-C 07/21/182045 Rashard Moody PA-C 07/22/18 0016 Rashard Moody PA-C 08/05/18 0032 Cosigned by Christopher Aggarwal MD at 08/07/2018 6:59 AM EST Associated attestation - Christopher Aggarwal MD - 08/07/2018 6:59 AM EST For this patient encounter, I reviewed the PRIMARY CARE PEDIATRICIAN or PA documentation, treatment plan, and medical [...] - 130 mg/dL 07/22/2018 4:46 PM EST [facility] Comment:Serial Number: [id number] Blood 07/22/2018 4:38 PM EST 07/22/2018 4:46 PM EST us Jarred Bauman MD POINT OF CARE TEST ORDERABLES Fi nal Result [facility]
[address] [id number], * (ABNORMAL) POC Glucose Once (07/22/2018 12:08 PM EST) Glucose 233(H) 70 - 130 mg/dL 07/22/2018 12:20 PM EST [facility] Comment:Serial Number: [id number] Blood 07/22/2018 12:0 8 PM EST 07/22/2018 12:20 PM EST us Jarred Bauman MD POINT OF CARE TEST ORDERABLES Fi nal Result [facility]
[address] [place] [address], [place] [phone] * (ABNORMAL) PTH, Intact (07/22/2018 7:17 AM EST) Pathologist [facility] PTH, Intact 123(H) 15 - 65 pg/mL 07/24/2018 2:13 PM EST [facility] Blood Venipuncture / Unknown 07/22/2018 7:17 AM EST 07/22/2018 3:23 PM EST Narrative [facility] - 07/24/2018 2:13 PM EST Performed at: ?? [facility] [address], [place], [place] ??[id number] Die Cast Operator: Jacob Whaley PhD, Phone: ??[phone] Ricardo Baker MD, FASN LAB BLOOD ORDERABLES Amy l Result Performing Organization Address City/[facility]/ZIP Co de Phone Number [facility] [address] [place] [address], [place] [phone] * (ABNORMAL) CBC Auto Differential (07/22/2018 7:02 AM EST) [facility] WBC 9.72 4.80 - 10.80 10*3/mm3 07/22/2018 7:38 AM [facility] RBC 3.19(L) 4.20 - 5.40 10*6/mm3 07/22/2018 7:38 AM [facility] Hemoglobin 9.2(L) 12.0 - 16.0 g/dL 07/22/2018 7:38 AM [facility] Hematocrit 29.7(L) 37.0 - 47.0 % 07/22/2018 7:38 AM [facility] MCV 93.1 81.0 - 99.0 fL 07/22/2018 7:38 AM [facility] MCH 28.8 27.0 - 31.0 pg 07/22/2018 7:38 AM [facility] MCHC 31.0 30.0 - 37.0 g/dL 07/22/2018 7:38 AM [facility] RDW 12.7 11.5 - 14.5 % 07/22/2018 7:38 AM [facility] RDW-SD 43.6 37.0 - 54.0 fl 07/22/2018 7:38 AM [facility] MPV 13.0(H) 6.0 - 12.0 fL 07/22/2018 7:38 AM [facility] Platelets 206 130 - 400 10*3/mm3 07/22/2018 7:38 AM [facility] Neutrophil % 58.7 37.0 - 80.0 % 07/22/2018 7:38 AM [facility] Lymphocyte % 33.7 10.0 - 50.0 % 07/22/2018 7:38 AM [facility] Monocyte % 5.5 0.0 - 12.0 % 07/22/2018 7:38 AM [facility] Eosinophil % 1.6 0.0 - 7.0 % 07/22/2018 7:38 AM [facility] Basophil % 0.2 0.0 - 2.5 % 07/22/2018 7:38 AM [facility] Immature Grans % 0.3 0.0 - 0.6 % 07/22/2018 7:38 AM [facility] Neutrophils, Absolute 5.70 2.00 - 6.90 10*3/mm3 07/22/2018 7:38 AM [facility] Lymphocytes, Absolute 3.28 0.60 - 3.40 10*3/mm3 07/22/2018 7:38 AM [facility] Monocytes, Absolute 0.53 0.00 - 0.90 10*3/mm3 07/22/2018 7:38 AM [facility] Eosinophils, Absolute 0.16 0.00 - 0.70 10*3/mm3 07/22/2018 7:38 AM [facility] Basophils, Absolute 0.02 0.00 - 0.20 10*3/mm3 07/22/2018 7:38 AM [facility] Immature Grans, Absolute 0.03 0.00 - 0.06 10*3/mm3 07/22/2018 7:38 AM [facility] nRBC 0.0 0.0 - 0.0 /100 WBC 07/22/2018 7:38 AM [facility] Blood Venipuncture / Unknown 07/22/2018 7:02 AM EST 07/22/2018 7:24 AM EST Jarred Bauman MD LAB BLOOD ORDERABLES Final Resul t [facility]
[address] [place] [address], * (ABNORMAL) Basic Metabolic Panel (07/22/2018 7:02 AM EST) Glucose 86 74 - 98 mg/dL 07/22/2018 7:38 AM [facility] BUN 46(H) 7 - 20 mg/dL 07/22/2018 7:38 AM [facility] Creatinine 3.30(H) 0.60 - 1.30 mg/dL 07/22/2018 7:38 AM [facility] Sodium 139 137 - 145 mmol/L 07/22/2018 7:38 AM [facility] Potassium 4.8 3.5 - 5.1 mmol/L 07/22/2018 7:38 AM [facility] Chloride 116(H) 98 - 107 mmol/L 07/22/2018 7:38 AM [facility] CO2 15.0(L) 26.0 - 30.0 mmol/L 07/22/2018 7:38 AM [facility] Calcium 8.1(L) 8.4 - 10.2 mg/dL 07/22/2018 7:38 AM [facility] eGFR Non Amer 17(L) >60 mL/min/1.7 3 07/22/2018 7:38 AM [facility] BUN/Creatinine Ratio 13.9 7.1 - 23.5 07/22/2018 7:38 AM EST [facility] Anion Gap 12.8 10.0 - 20.0 mmol/L 07/22/2018 7:38 AM EST [facility] Blood Venipuncture / Unknown 07/22/2018 7:02 AM EST 07/22/2018 7:24 AM EST Narrative [facility] - 07/22/2018 7:38 AM EST GFR Normal >60 Chronic Kidney Disease <60 Kidney Failure <15 Jarred Bauman MD LAB BLOOD ORDERABLES Final Resul t Performing Organization Address City/[facility]/ZIP Co de Phone Number [facility]
[address] [place] [address], * POC Glucose Once (07/22/2018 6:46 AM EST) Glucose 92 70 - 130 mg/dL 07/22/2018 6:50 AM EST [facility] Comment:Serial Number: [id number] Blood 07/22/2018 6:46 AM EST 07/22/2018 6:50 AM EST Phill Gama DO POINT OF CARE TEST ORDERABLES Final Result Performing Organization Address City/[facility]/ZIP Co de Phone Number [facility]
[address] [place] [address], * Blood Culture With ADITYA - Blood, Arm, Right (07/21/2018 11:44 PM EST) Blood Culture No growth at 5 days KIRA 07/27/2018 12:02 AM EST [facility] Blood Right upper arm structure / Unknown Venipuncture / Unknown 07/21/2018 11:44 PM EST 07/21/2018 11:59 PM EST Rashard Moody PA-C MICROBIOLOGY - GEN ERAL ORDERABLES Final Result [facility]
[address] [id number], * (ABNORMAL) Procalcitonin (07/21/2018 11:37 PM EST) Procalcitonin 0.59(H) <=0.25 ng/mL 07/22/2018 1:05 AM EST [facility] Blood Venipuncture / Unknown 07/21/2018 11:37 PM EST 07/21/2018 11:51 PM EST Narrative [facility] - 07/22/2018 1:05 AM EST As [...] 2 ng/mL are obtained. us Rashard Hough [employer] PA-C LAB BLOOD ORDERABL ES Final Result [facility]
[address] [place] [address], * Lactic Acid, Plasma (07/21/2018 11:37 PM EST) Lactate 1.0 0.5 - 2.0 mmol/L 07/22/2018 12:07 AM [facility] Blood Venipuncture / Unknown 07/21/2018 11:37 PM EST 07/21/2018 11:51 PM EST [facility] [employer]lo PA-C LAB BLOOD ORDERABL ES Final Result Performing Organization Address [facility]/ZIP Co de Phone Number [facility]
[address] [phone], * (ABNORMAL) Basic Metabolic Panel (07/21/2018 11:37 PM EST) Glucose 103(H) 74 - 98 mg/dL 07/22/2018 12:12 AM [facility] BUN 47(H) 7 - 20 mg/dL 07/22/2018 12:12 AM [facility] Creatinine 3.50(H) 0.60 - 1.30 mg/dL 07/22/2018 12:12 AM [facility] Sodium 137 137 - 145 mmol/L 07/22/2018 12:12 AM [facility] Potassium 5.6(HH) 3.5 - 5.1 mmol/L 07/22/2018 12:12 AM [facility] Chloride 114(H) 98 - 107 mmol/L 07/22/2018 12:12 AM [facility] CO2 12.0(L) 26.0 - 30.0 mmol/L 07/22/2018 12:12 AM [facility] Calcium 8.8 8.4 - 10.2 mg/dL 07/22/2018 12:12 AM [facility] eGFR Non Amer 16(L) >60 mL/min/1.7 3 07/22/2018 12:12 AM EST [facility] BUN/Creatinine Ratio 13.4 7.1 - 23.5 07/22/2018 12:12 AM EST [facility] Anion Gap 16.6 10.0 - 20.0 mmol/L 07/22/2018 12:12 AM EST [facility] Blood Venipuncture / Unknown 07/21/2018 11:37 PM EST 07/21/2018 11:51 PM EST Narrative [facility] - 07/22/2018 12:12 AM EST GFR Normal >60 Chronic Kidney Disease <60 Kidney Failure <15 Jarred Bauman MD LAB BLOOD ORDERABLES Final Resul t Performing Organization Address City/[facility] Co de Phone Number [facility]
[address] [place] [address], * POC Glucose Once (07/21/2018 11:23 PM EST) Glucose 100 70 - 130 mg/dL 07/21/2018 11:30 PM EST [facility] Comment:Serial Number: [id number]: [id number] Blood 07/21/2018 11:2 3 PM EST 07/21/2018 11:30 PM EST Phill Gama DO POINT OF CARE TEST ORDERABLES Final Result Performing Organization Address City/[facility]/ZIP Co de Phone Number [facility]
[address] [place] [address], * POC Glucose Once (07/21/2018 9:46 PM EST) Glucose 90 70 - 130 mg/dL 07/21/2018 9:50 PM EST [facility] Comment:Serial Number: [id number] Blood 07/21/2018 9:46 PM EST 07/21/2018 9:50 PM EST us Phillabi Gama DO POINT OF CARE TEST ORDERABLES Final Result [facility]
[address] [place] [address], * CT Abdomen Pelvis Without Contrast (07/21/2018 [...] Hemoglobin A1c (07/21/2018 5:50 PM EST) Pathologist [facility] Hemoglobin A1C 7.8(H) 3 - 6 % 07/24/2018 1:56 AM EST [facility] Blood Venipuncture / Unknown 07/21/2018 5:50 PM EST 07/21/2018 5:57 PM EST Narrative [facility] - 07/24/2018 1:56 AM EST Expected HgbA1C results: ? 3% to 6% HgbA1C HgbA1C ? Estimated Average Glucose 5% ?97 mg/dl 6% ? 126 mg/dl 7% ? 154 mg/dl 8% ? 183 mg/dl 9% ? 212 mg/dl >10% ? >240 mg/dl Jarred Bauman MD LAB BLOOD ORDERABLES Final Resul t [facility]
[address] [phone], * (ABNORMAL) Urine Culture - Urine, Urine, Clean Catch (07/21/2018 5:50 PM EST) Pathologist [facility] Urine Culture >100,000 CFU/mL Escherichia coli(A) KIRA 07/24/2018 7:48 AM EST [facility] Urine Urine specimen collection, clean catch / [...] KIRA <=4 ug/ml: Susceptible Escherichia coli Cefotaxime IKRA <=2 ug/ml: Susceptible Escherichia coli Cefoxitin KIRA [...] MICROBIOLOGY - GENERAL ORDERABLE S Final Result [facility]
[address] [id number], [place] [phone] * (ABNORMAL) Urinalysis, Microscopic Only - Urine, Clean Catch (07/21/2018 5:50 PM EST) RBC, UA 3-5(A) None Seen /HPF 07/21/2018 6:20 PM EST [facility] WBC, UA 31-50(A) None Seen /HPF 07/21/2018 6:20 PM [facility] Bacteria, UA 1+(A) None Seen /HPF 07/21/2018 6:20 PM [facility] Squamous Epithelial Cells, UA 0-2 None Seen, 0-2 /HPF 07/21/2018 6:20 PM EST [facility] Hyaline Casts, UA None Seen None Seen /LPF 07/21/2018 6:20 PM [facility] WBC Clumps, UA Small/1+ None Seen /HPF 07/21/2018 6:20 PM [facility] Methodology Manual Light Microscopy 07/21/2018 6:20 PM [facility] Urine Urine specimen collection, clean catch / Unknown Collection / Unknown 07/21/2018 5:50 PM EST 07/21/2018 5:57 PM EST Rashard Moody PA-C URINE ORDERABLES F inal Result [facility]
[address] [phone], * (ABNORMAL) CBC Auto Differential (07/21/2018 5:50 PM EST) WBC 16.02(H) 4.80 - 10.80 10*3/mm3 07/21/2018 6:05 PM [facility] RBC 3.94(L) 4.20 - 5.40 10*6/mm3 07/21/2018 6:05 PM [facility] Hemoglobin 11.5(L) 12.0 - 16.0 g/dL 07/21/2018 6:05 PM [facility] Hematocrit 35.6(L) 37.0 - 47.0 % 07/21/2018 6:05 PM [facility] MCV 90.4 81.0 - 99.0 fL 07/21/2018 6:05 PM [facility] MCH 29.2 27.0 - 31.0 pg 07/21/2018 6:05 PM [facility] MCHC 32.3 30.0 - 37.0 g/dL 07/21/2018 6:05 PM [facility] RDW 12.5 11.5 - 14.5 % 07/21/2018 6:05 PM [facility] RDW-SD 41.1 37.0 - 54.0 fl 07/21/2018 6:05 PM [facility] MPV 13.2(H) 6.0 - 12.0 fL 07/21/2018 6:05 PM [facility] Platelets 243 130 - 400 10*3/mm3 07/21/2018 6:05 PM [facility] Neutrophil % 82.0(H) 37.0 - 80.0 % 07/21/2018 6:05 PM [facility] Lymphocyte % 11.2 10.0 - 50.0 % 07/21/2018 6:05 PM [facility] Monocyte % 4.7 0.0 - 12.0 % 07/21/2018 6:05 PM [facility] Eosinophil % 1.5 0.0 - 7.0 % 07/21/2018 6:05 PM [facility] Basophil % 0.2 0.0 - 2.5 % 07/21/2018 6:05 PM [facility] Immature Grans % 0.4 0.0 - 0.6 % 07/21/2018 6:05 PM [facility] Neutrophils, Absolute 13.12(H) 2.00 - 6.90 10*3/mm3 07/21/2018 6:05 PM [facility] Lymphocytes, Absolute 1.79 0.60 - 3.40 10*3/mm3 07/21/2018 6:05 PM [facility] Monocytes, Absolute 0.76 0.00 - 0.90 10*3/mm3 07/21/2018 6:05 PM [facility] Eosinophils, Absolute 0.24 0.00 - 0.70 10*3/mm3 07/21/2018 6:05 PM [facility] Basophils, Absolute 0.04 0.00 - 0.20 10*3/mm3 07/21/2018 6:05 PM [facility] Immature Grans, Absolute 0.07(H) 0.00 - 0.06 10*3/mm3 07/21/2018 6:05 PM [facility] nRBC 0.0 0.0 - 0.0 /100 WBC 07/21/2018 6:05 PM [facility] Blood Venipuncture / Unknown 07/21/2018 5:50 PM EST 07/21/2018 5:57 PM EST Rashard Gianluca Moody PA-C LAB BLOOD ORDERABL ES Final Result Performing Organization Address City/[facility]/ZIP Co de Phone Number [facility]
[address] [place] [address], [place] [phone] * , Urine - Urine, Clean Catch (07/21/2018 5:50 PM EST) HCG, Urine QL Negative Negative 07/21/2018 6:06 PM [facility] Urine Urine specimen collection, clean catch / Unknown Collection / Unknown 07/21/2018 5:50 PM EST 07/21/2018 5:57 PM EST Rashard Gianluca [employer] PA-C URINE ORDERABLES F inal Result Performing Organization Address City/[facility]/ZIP Co de Phone Number [facility]
[address] [place] [address], [place] [phone] * (ABNORMAL) Urinalysis With Microscopic If Indicated (No Culture) - Urine, Clean Catch (07/21/2018 5:50 PM EST) Color, UA Straw Yellow, Straw 07/21/2018 6:10 PM [facility] Appearance, UA Slightly Cloudy(A) Clear 07/21/2018 6:10 PM [facility] pH, UA 5.5 5.0 - 8.0 07/21/2018 6:10 PM [facility] Specific [place], UA 1.025 1.005 - 1.030 07/21/2018 6:10 PM EST [facility] Glucose, UA Negative Negative 07/21/2018 6:10 PM EST [facility] Ketones, UA Negative Negative 07/21/2018 6:10 PM EST [facility] Bilirubin, UA Negative Negative 07/21/2018 6:10 PM EST [facility] Blood, UA Trace(A) Negative 07/21/2018 6:10 PM EST [facility] Protein, UA >=300 mg/dL (3+)(A) Negative 07/21/2018 6:10 PM EST [facility] Leuk Esterase, UA Negative Negative 07/21/2018 6:10 PM EST [facility] Nitrite, UA Negative Negative 07/21/2018 6:10 PM [facility] Urobilinogen, UA 0.2 E.U./dL 0.2 - 1.0 E.U./dL 07/21/2018 6:10 PM EST [facility] Urine Urine specimen collection, clean catch / Unknown Collection / Unknown 07/21/2018 5:50 PM EST 07/21/2018 5:57 PM EST Rashard Moody PA-C URINE ORDERABLES F inal Result [facility]
[address] [place] [address], * (ABNORMAL) Comprehensive Metabolic Panel (07/21/2018 5:50 PM EST) Glucose 105(H) 74 - 98 mg/dL 07/21/2018 6:20 PM EST [facility] BUN 52(H) 7 - 20 mg/dL 07/21/2018 6:20 PM [facility] Creatinine 3.40(H) 0.60 - 1.30 mg/dL 07/21/2018 6:20 PM EST [facility] Sodium 139 137 - 145 mmol/L 07/21/2018 6:20 PM EST [facility] Potassium 6.2(HH) 3.5 - 5.1 mmol/L 07/21/2018 6:20 PM [facility] Chloride 113(H) 98 - 107 mmol/L 07/21/2018 6:20 PM [facility] CO2 16.0(L) 26.0 - 30.0 mmol/L 07/21/2018 6:20 PM [facility] Calcium 9.5 8.4 - 10.2 mg/dL 07/21/2018 6:20 PM [facility] Total Protein 7.8 6.3 - 8.2 g/dL 07/21/2018 6:20 PM [facility] Albumin 4.60 3.50 - 5.00 g/dL 07/21/2018 6:20 PM [facility] ALT (SGPT) 26 13 - 69 U/L 07/21/2018 6:20 PM [facility] AST (SGOT) 16 15 - 46 U/L 07/21/2018 6:20 PM [facility] Alkaline Phosphatase 71 38 - 126 U/L 07/21/2018 6:20 PM [facility] Total Bilirubin 0.3 0.2 - 1.3 mg/dL 07/21/2018 6:20 PM [facility] eGFR Non Amer 16(L) >60 mL/min/1.7 3 07/21/2018 6:20 PM [facility] Globulin 3.2 gm/dL 07/21/2018 6:20 PM [facility] A/G Ratio 1.4 1.0 - 2.0 g/dL 07/21/2018 6:20 PM [facility] BUN/Creatinine Ratio 15.3 7.1 - 23.5 07/21/2018 6:20 PM [facility] Anion Gap 16.2 10.0 - 20.0 mmol/L 07/21/2018 6:20 PM [facility] Blood Venipuncture / Unknown 07/21/2018 5:50 PM EST 07/21/2018 5:57 PM EST Narrative [facility] - 07/21/2018 6:20 PM EST GFR Normal >60 Chronic Kidney Disease <60 Kidney Failure <15 Rashard Moody PA-C LAB BLOOD ORDERABL ES Final Result [facility]
[address] [place] [address], * [place] APPLICATION SHORT ARM SPLINT FOREARM-HAND STATIC (07/21/2018 [...] TELEMETRY (07/21/2018) Anatomical Region Laterality Modality Other [facility] Onbase ECG ORDERABLES Final Result [...]
--- OUTSIDE RECORDS SUMMARY | 2024-06-19 08:46 | XMS_ITS | Encounter Summary ---
Author Organization [facility] ystem Address [address] [place] [address] Care Team Providers Care Comic Illustrator Name Role Phone Unavailable Primary Care Provider Unavailabl e Reason for Visit * Reason Comments Knee Pain Encounter Details Date Type Department Care Team (Late st Contact Info) Description 09/22/2018 8:20 PM EST - 09/22/2018 9:30 PM EST Emergency [facility] EMERGENCY DEPARTMENT [address] [place] [phone] Dominik Rizo MD [address] [place] [address] Sprain of left knee, unspecified ligament, initial [...] through Care Everywhere. * Knee Sprain Adult (Nigerien) documented in this encounter Medications at Time [...] Chronic constipation ??? Depression ??? Diabetes mellitus ([facility]/HCC) ??? Excessive thirst ??? H/O mammogram 2014 [...] For this patient encounter, I reviewed the TON CONTAINER SHIPPER or PA documentation, treatment plan, and medical [...] Laterality Modality Lower Extremities, Knee Left [facility] 09/23/2018 8:55 AM EST Impressions 09/23/2018 [...] dislocation, bony destruction or fracture. Procedure Note aJnak Pike MD - 09/23/2018 LEFT KNEE INDICATION: [...]
--- OUTSIDE RECORDS SUMMARY | 2024-06-19 08:46 | XMS_ITS | Encounter Summary ---
Author Organization [facility] ystem Address [address] [place] [address] Care Team Providers Care Fire Department Marine Engineer Name Role Phone Unavailable Primary Care Provider Unavailabl e Reason for Visit * Reason Comments Post-op Problem Encounter Details Date Type Department Care Team (Late st Contact Info) Description 11/02/2018 7:56 PM EDT - 11/02/2018 9:23 PM EDT Emergency [facility] EMERGENCY DEPARTMENT [address] [place] [address] Phill Gama, DO [address] [place], [place] [id number] Pain, dental (Primary Dx) Discharge Disposition: Home [...] sent through Care Everywhere. * Dental Pain [id number] (Marshallese) documented in this encounter Medications at Time [...] Management options: low Final diagnoses: Pain, dental cB Dumont PA-C 11/02/182043 Cosigned by Phill Gama DO at 11/02/2018 11:14 PM EDT Associated attestation - Phill Gama DO - 11/02/2018 11:14 PM EDT For this patient encounter, I reviewed the NEWS DIRECTOR or PA documentation, treatment plan, and [...]
--- OUTSIDE RECORDS SUMMARY | 2024-06-19 08:46 | XMS_ITS | Encounter Summary ---
[facility] Address [address] [place] [address] Care Team Providers Care Logger Name Role Phone Unavailable Primary Care Provider Unavailabl e Reason for Visit * (Emergency) - Closed Specialty Diagnoses / Procedures Referred By Xochitl t Referred To Contact Radiology Diagnoses Hematuria, unspecified type Procedures XR abdomen Fabiola Drummond MD [address] [place] [address] [place] [address] Phone: tel: fax: Referral ID Status Reason Start Date Expiration Date Visits Re quested Visits Authorized [id number] Closed 09/25/2018 09/25/2019 1 1 Encounter Details Date Type Department Care Team (Latest Contact Info) Description 09/25/2018 1:45 PM EDT - 09/25/2018 11:59 PM EDT Hospital Encounter [facility] XRAY [address] [place] [address] Discharge Disposition: Home or Self [...]
--- OUTSIDE RECORDS SUMMARY | 2024-06-19 08:46 | XMS_ITS | Encounter Summary ---
Author Organization [facility] ystem Address [address] [place] [id number] Care Team Providers Care Slide Attendant Name Role Phone Unavailable Primary Care Provider Unavailabl e Reason for Visit * Reason Comments Leg Pain Encounter Details Date Type Department Care Team (Late st Contact Info) Description 10/31/2018 9:24 PM EDT - 10/31/2018 10:26 PM EDT Emergency [facility] EMERGENCY DEPARTMENT [address] [place] [address] Phill Gama, DO [address] [place], [place] [id number] Acute left-sided low back pain with left-sided [...] be sent through Care Everywhere. * Sciatica [id number] (Citizen Of [place]) documented in this encounter Medications at Time [...]
--- OUTSIDE RECORDS SUMMARY | 2024-06-19 08:46 | XMS_ITS | Encounter Summary ---
Author Organization [facility] ystem Address [address] [place] [address] Care Team Providers Care Acetylene Cylinder Packing Mixer Name Role Phone Unavailable Primary Care Provider Unavailabl e Encounter Details Date Type Department Care Team (Late st Contact Info) Description 10/11/2018 Telephone [facility] UROLOGY [address] [place] [phone] Fabiola Guzman MD [address] [place], [place] [id number] Social History Tobacco Use Types Packs/Day Years [...]
--- OUTSIDE RECORDS SUMMARY | 2024-06-19 08:46 | XMS_ITS | Encounter Summary ---
[facility] Address [address] [place] [address] Care Team Providers Care Distance Learning Administrator Name Role Phone Unavailable Primary Care Provider Unavailabl e Reason for Visit * Reason Comments Dysuria Encounter Details Date Type Department Care Team (Late st Contact Info) Description 12/21/2018 1:55 AM EDT - 12/21/2018 3:13 AM EDT Emergency [facility] [address] [place] [phone] Jaquan Arenas, Urinary tract infection without [...] Care Everywhere. * Urinary Tract Infection Adult (Chinese) * Chronic Kidney Disease Adult (Chinese) documented in this encounter Medications at [...] unspecified Chronic renal failure, stage 4 (severe) ([facility]) Jaquan Arenas DO 12/21/18 0458 * Roxann [...] None Seen /HPF 12/21/2018 2:56 AM EDT [facility] WBC, UA 3-5(A) None Seen /HPF 12/21/2018 2:56 AM EDT [facility] Bacteria, UA Trace(A) None Seen /HPF 12/21/2018 2:56 AM EDT [facility] Squamous Epithelial Cells, UA 3-6(A) None Seen, 0-2 /HPF 12/21/2018 2:56 AM EDT [facility] Hyaline Casts, UA None Seen None Seen /LPF 12/21/2018 2:56 AM EDT [facility] WBC Clumps, UA Small/1+ None Seen /HPF 12/21/2018 2:56 AM EDT [facility] Methodology Manual Light Microscopy 12/21/2018 2:56 AM T [facility] Urine Urine specimen collection, clean catch / Unknown Collection / Unknown 12/21/2018 2:38 AM EDT 12/21/2018 2:45 AM EDT Jaquan Arenas DO URINE ORDERABLES Final Result [facility]
[address] [place] [address], [place] [phone] * (ABNORMAL) Urinalysis With Culture If Indicated - Urine, Clean Catch (12/21/2018 2:38 AM EDT) Color, UA Yellow Yellow, Straw 12/21/2018 2:48 AM EDT [facility] Appearance, UA Clear Clear 12/21/2018 2:48 AM EDT [facility] pH, UA 6.5 5.0 - 8.0 12/21/2018 2:48 AM EDT [facility] Specific Arp, UA 1.013 1.005 - 1.030 12/21/2018 2:48 AM EDT [facility] Glucose, UA 250 mg/dL (1+)(A) Negative 12/21/2018 2:48 AM EDT [facility] Ketones, UA Negative Negative 12/21/2018 2:48 AM EDT [facility] Bilirubin, UA Negative Negative 12/21/2018 2:48 AM EDT [facility] Blood, UA Trace(A) Negative 12/21/2018 2:48 AM EDT [facility] Protein, UA >=300 mg/dL (3+)(A) Negative 12/21/2018 2:48 AM EDT [facility] Leuk Esterase, UA Negative Negative 12/21/2018 2:48 AM EDT [facility] Nitrite, UA Negative Negative 12/21/2018 2:48 AM EDT [facility] Urobilinogen, UA 0.2 E.U./dL 0.2 - 1.0 E.U./dL 12/21/2018 2:48 AM EDT [facility] Urine Urine specimen collection, clean catch / Unknown Collection / Unknown 12/21/2018 2:38 AM EDT 12/21/2018 2:45 AM EDT Jaquan Arenas DO URINE ORDERABLES Final Result [facility]
[address] [place] [address], documented in this encounter Visit Diagnoses Diagnosis [...]
--- OUTSIDE RECORDS SUMMARY | 2024-06-19 08:46 | XMS_ITS | Encounter Summary ---
[facility] Address [address] [place] [address] Care Team Providers Care Dirt Shoveler Name Role Phone Unavailable Primary Care Provider Unavailabl e Reason for Visit * Hospital - Outpatient (Emergency) - Closed Specialty Diagnoses / Procedures Referred By Contel t Referred To Contact Radiology Diagnoses Hematuria, unspecified type Procedures US renal bilateral Thomas, Fabiola Villafuerte MD [address] [place] [phone] Phone: tel: fax: Referral ID Status Reason Start Date Expiration Date Visits Re quested Visits Authorized [id number] Closed 09/25/2018 09/25/2019 1 1 Encounter Details Date Type Department Care Team (Latest Contact Info) Description 09/25/2018 2:45 PM EDT - 09/25/2018 11:59 PM EDT Hospital Encounter [facility] [address] [place] [address] Discharge Disposition: Home or Self [...]
--- OUTSIDE RECORDS SUMMARY | 2024-06-19 08:46 | XMS_ITS | Encounter Summary ---
[facility] [address] [place] [address] Care Team Providers Care Land Title Examiner Name Role Phone Unavailable Primary Care Provider Unavailabl e Reason for Visit * (Emergency) - Closed Specialty Diagnoses / Procedures Referred By Xochitl t Referred To Contact Radiology Diagnoses Left knee pain, unspecified chronicity Procedures XR knee 3 vw left Thomas, Fabiola Villafuerte MD [address] [place] [phone] Phone: tel: fax: Referral ID Status Reason Start Date Expiration Date Visits Re quested Visits Authorized [id number] Closed 09/25/2018 09/25/2019 1 1 Encounter Details Date Type Department Care Team (Latest Contact Info) Description 09/25/2018 2:05 PM EDT - 09/25/2018 11:59 PM EDT Hospital Encounter [facility] XRAY [address] [place] [address] Discharge Disposition: Home or Self [...] Laterality Modality Lower Extremities, Knee Left [facility] Imaging 09/25/2018 2:34 PM EDT Impressions [...]
--- OUTSIDE RECORDS SUMMARY | 2024-06-19 08:46 | XMS_ITS | Encounter Summary ---
Author Organization [facility] ystem Address [address] [place] [address] Care Team Providers Care Tile Installer Name Role Phone Unavailable Primary Care Provider Unavailabl e Encounter Details Date Type Department Care Team (Late st Contact Info) Description 12/12/2018 11:15 AM EDT Consult [facility] HEMATOLOG[facility]OGY [address] [facility] [address] [facility] [address] [place] [address] Mare Johnston MD [address] [facility] [address] [place] [address] Anemia due to chronic kidney disease, unspecified [...] 10/17/2012 ??? SECTION ??? INDUCED [address] [facility] Social History Socioeconomic History ??? Marital [...] begin procrit. I will defer to her complex manager regarding the timing of initiating Procrit treatment. [...]
--- OUTSIDE RECORDS SUMMARY | 2024-06-19 08:46 | XMS_ITS | Encounter Summary ---
Author Organization [facility] ystem Address [address] [place] [address] Care Team Providers Care Log Yard Derrick Operator Name Role Phone Unavailable Primary Care Provider Unavailabl e Reason for Visit * Reason Comments Arm Pain Encounter Details Date Type Department Care Team (Late st Contact Info) Description 09/04/2018 7:45 PM EST - 09/04/2018 8:23 PM EST Emergency [facility] [address] [place] [phone] Krissy Bowman MD Arm fracture, left, [...] this patient encounter, I reviewed the HOME ENERGY INSPECTOR or PA documentation, treatment plan, and medical decision making. Krissy Bowman MD 09/04/2018 8:09 PM documented in this encounter Plan of Treatment Not on file documented as of this encounter Visit Diagnoses Diagnosis Arm fracture, left, sequela- Primary documented in this encounter
--- OUTSIDE RECORDS SUMMARY | 2024-06-19 08:46 | XMS_ITS | Encounter Summary ---
Author Organization [facility] ystem Address [address] [place] [address] Care Team Providers Care Career And Guidance Counselor Name Role Phone Unavailable Primary Care Provider Unavailabl e Reason for Visit * (Emergency) - Closed Specialty Diagnoses / Procedures Referred By Contac t Referred To Contact Radiology Diagnoses Low back pain without sciatica, unspecified back pain laterality, unspecified chronicity Procedures XR Spine Lumbar 2 or 3 View XR spine lumbar 4+ vw Fabiola Guzman MD [address] [place] [phone] Phone: tel: fax: Referral ID Status Reason Start Date Expiration Date Visits Re quested Visits Authorized [id number] Closed 09/25/2018 09/25/2019 1 1 Encounter Details Date Type Department Care Team (Late st Contact Info) Description 09/25/2018 1:30 PM EDT - 09/25/2018 11:59 PM EDT Hospital Encounter [facility] XRAY [address] [place] [address] Ming Low MD [address] [facility] [address] [place] [address] Discharge Disposition: Home or Self Care Social [...]
--- OUTSIDE RECORDS SUMMARY | 2024-06-19 08:46 | XMS_ITS | Encounter Summary ---
[facility] [address] [place] [address] Care Team Providers Care Day Light Relief Operator Name Role Phone Unavailable Primary Care Provider Unavailabl e Reason for Visit * Hospital - Outpatient (Emergency) - Closed Specialty Diagnoses / Procedures Referred By Contel t Referred To Contact Radiology Diagnoses Hematuria, unspecified type Procedures US urinary bladder Thomas, Fabiola Villafuerte MD [address] [place] [phone] Phone: tel: fax: Referral ID Status Reason Start Date Expiration Date Visits Re quested Visits Authorized [id number] Closed 09/25/2018 09/25/2019 1 1 Encounter Details Date Type Department Care Team (Latest Contact Info) Description 09/25/2018 2:15 PM EDT - 09/25/2018 11:59 PM EDT Hospital Encounter [facility] [address] [place] [address] Discharge Disposition: Home or Self [...]
--- OUTSIDE RECORDS SUMMARY | 2024-06-19 08:46 | XMS_ITS | Encounter Summary ---
Author Organization [facility] ystem Address [address] [place] [id number] Care Team Providers Care Polysomnographic Tech Name Role Phone Unavailable Primary Care Provider Unavailabl e Reason for Visit * Reason Comments Hand Pain Encounter Details Date Type Department Care Team (Late st Contact Info) Description 09/02/2018 6:31 PM EST - 09/02/2018 7:10 PM EST Emergency [facility] EMERGENCY DEPARTMENT [address] [place] [phone] Mickey Cerda MD [address] [place] [address] Closed fracture of proximal end of left [...] sent through Care Everywhere. * Ulnar Fracture (Samoan) documented in this encounter Medications at Time [...] For this patient encounter, I reviewed the PROFESSIONAL GOLF TOURNAMENT PLAYER or PA documentation, treatment plan, and medical decision making. Mickey Cerda MD 09/03/2018 7:19 AM documented in this encounter Plan of Treatment Not on file documented as of this encounter Visit Diagnoses Diagnosis Closed fracture of proximal end of left ulna, unspecified fracture morphology, initial encounter- Primary documented in this encounter
--- OUTSIDE RECORDS SUMMARY | 2024-06-19 08:46 | XMS_ITS | Encounter Summary ---
[facility] Address [address] [place] [address] Care Team Providers Care Supercharge Repair Supervisor Name Role Phone Unavailable Primary Care Provider Unavailabl e Reason for Visit * (Emergency) - Closed Specialty Diagnoses / Procedures Referred By Contel t Referred To Contact Radiology Diagnoses Rib pain Procedures XR Ribs Left With PA Chest Thomas, Fabiola Villafuerte MD [address] [place] [phone] Phone: tel: fax: Referral ID Status Reason Start Date Expiration Date Visits Re quested Visits Authorized [id number] Closed 08/28/2018 08/28/2019 1 1 Encounter Details Date Type Department Care Team (Late st Contact Info) Description 08/28/2018 1:34 PM EST - 08/28/2018 11:59 PM [facility] Hospital Encounter [facility] XRAY [address] [place] [address] [place] [address] [place] [address] [address] [place] [address] Discharge Disposition: Home or Self Care Social [...]
--- OUTSIDE RECORDS SUMMARY | 2024-06-19 08:46 | XMS_ITS | Encounter Summary ---
Author Organization [facility] Address [address] [place] [address] Care Team Providers Care Goodwill Ambassador Name Role Phone Unavailable Primary Care Provider Unavailabl e Encounter Details Date Type Department Care Team (Late st Contact Info) Description 08/28/2018 9:40 AM EST Lab [facility] [address] [place] [address] Chronic kidney disease, stage IV [...] 0-2(A) None Seen /HPF 08/28/2018 10:13 AM [facility] WBC, UA 0-2(A) None Seen /HPF 08/28/2018 10:13 AM EST [facility] Bacteria, UA Trace(A) None Seen /HPF 08/28/2018 10:13 AM [facility] Squamous Epithelial Cells, UA 0-2 None Seen, 0-2 /HPF 08/28/2018 10:13 AM EST [facility] Hyaline Casts, UA None Seen None Seen /LPF 08/28/2018 10:13 AM [facility] Methodology Manual Light Microscopy 08/28/2018 10:13 AM [facility] Urine Urine specimen collection, clean catch / Unknown Collection / Unknown 08/28/2018 9:39 AM EST 08/28/2018 9:57 AM EST us Mukul Stevens MD URINE ORDERABLES Final Result [facility]
[address] [place] [address], [place] [phone] * (ABNORMAL) Urinalysis without microscopic (no culture) - Urine, Clean Catch (08/28/2018 9:39 AM EST) Color, UA Yellow Yellow, Straw 08/28/2018 10:04 AM [facility] Appearance, UA Clear Clear 08/28/2018 10:04 AM [facility] pH, UA 7.0 5.0 - 8.0 08/28/2018 10:04 AM [facility] Specific [place], UA 1.015 1.005 - 1.030 08/28/2018 10:04 AM [facility] Glucose, UA 100 mg/dL (Trace)(A) Negative 08/28/2018 10:04 AM [facility] Ketones, UA Negative Negative 08/28/2018 10:04 AM [facility] Bilirubin, UA Negative Negative 08/28/2018 10:04 AM [facility] Blood, UA Trace(A) Negative 08/28/2018 10:04 AM [facility] Protein, UA 100 mg/dL (2+)(A) Negative 08/28/2018 10:04 AM [facility] Leuk Esterase, UA Negative Negative 08/28/2018 10:04 AM [facility] Nitrite, UA Negative Negative 08/28/2018 10:04 AM [facility] Urobilinogen, UA 0.2 E.U./dL 0.2 - 1.0 E.U./dL 08/28/2018 10:04 AM [facility] Urine Urine specimen collection, clean catch / Unknown Collection / Unknown 08/28/2018 9:39 AM EST 08/28/2018 9:57 AM EST Mukul Stevens MD URINE ORDERABLES Final Result [facility]
[address] [place] [address], [place] [phone] * (ABNORMAL) PTH, Intact (08/28/2018 9:39 AM EST) PTH, Intact 210(H) 15 - 65 pg/mL 08/29/2018 2:14 PM [facility] Blood Venipuncture / Unknown 08/28/2018 9:39 AM EST 08/28/2018 9:58 AM EST Narrative [facility] - 08/29/2018 2:14 PM EST Performed at: ??01 - [facility] [address] ??[id number] Groundskeeping Maintenance Worker: Jacob Whaley PhD, Phone: ??[phone] us Mukul Stevens MD LAB BLOOD ORDERABLES F inal Result Performing Organization Address City/[facility]/ZIP Co de Phone Number [address] [address], [place] [phone] * Ferritin (08/28/2018 9:39 AM EST) Pathologist [facility] Ferritin 54.20 6.24 - 137.00 ng/mL 08/28/2018 11:12 AM EST [facility] Blood Venipuncture / Unknown 08/28/2018 9:39 AM EST 08/28/2018 9:58 AM EST us Mukul Stevens MD LAB BLOOD ORDERABLES F inal Result [facility]
[address] [place] [address], * Urine Culture - Urine, Urine, Clean Catch (08/28/2018 9:39 AM EST) Pathologist [facility] Urine Culture No growth KIRA 08/30/2018 7:40 AM EST [facility] Urine Urine specimen collection, clean catch / Unknown Collection / Unknown 08/28/2018 9:39 AM EST 08/28/2018 9:57 AM EST us Mukul Stevens MD MICROBIOLOGY - GENERAL ORDERABLES Final Result Performing Organization Address [facility] Co de Phone Number [facility]
[address] [place] [address], [place] [phone] * Iron Profile (08/28/2018 9:39 AM EST) Iron 48 37 - 181 mcg/dL 08/28/2018 11:12 AM EST [facility] TIBC 419 261 - 497 mcg/dL 08/28/2018 11:12 AM EST [facility] Iron Saturation (TSAT) 11 11 - 46 % 08/28/2018 11:12 AM EST [facility] Blood Venipuncture / Unknown 08/28/2018 9:39 AM EST 08/28/2018 9:58 AM EST Mukul Stevens MD LAB BLOOD ORDERABLES F inal Result Performing Organization Address City/[facility]/ZIP Co de Phone Number [facility]
[address] [place] [address], [place] [phone] documented in this encounter Visit Diagnoses Diagnosis Chronic kidney disease, stage IV (severe) Chronic kidney disease, Stage IV (severe) documented in this encounter
--- OUTSIDE RECORDS SUMMARY | 2024-06-19 08:46 | XMS_ITS | Encounter Summary ---
Author Organization [facility] Address [address] [place] [address] Care Team Providers Care Lining Stitcher Name Role Phone Unavailable Primary Care Provider Unavailabl e Reason for Visit * Reason Comments Flank Pain Encounter Details Date Type Department Care Team (Late st Contact Info) Description 08/03/2018 5:42 PM EST - 08/03/2018 5:57 PM EST Emergency [facility] EM[facility]GENC[facility] DE[facility] [address] [place] [phone] Krissy Bowman MD Emergency, Triage Protocol, [place] [address] Discharge Disposition: Left Without Being Seen Social [...]
--- OUTSIDE RECORDS SUMMARY | 2024-06-19 08:46 | XMS_ITS | Encounter Summary ---
[facility] Address [address] [place] [address] Care Team Providers Care Nanosystems Engineer Name Role Phone Unavailable Primary Care Provider Unavailabl e Reason for Visit * Reason Comments Arm Pain Encounter Details Date Type Department Care Team (Late st Contact Info) Description 09/01/2018 1:01 PM EST - 09/01/2018 2:23 PM EST Emergency [facility] EMERGENCY DEPARTMENT [address] [place] [phone] Krissy Bowman MD Closed fracture of [...] sent through Care Everywhere. * Ulnar Fracture (Hungarian) documented in this encounter Medications at Time [...] For this patient encounter, I reviewed the GALLEY COOK or PA documentation, treatment plan, and medical decision making. Krissy Bowman MD 09/01/2018 7:40 PM documented in this encounter Plan of Treatment Not on file documented as of this encounter Procedures Procedure Name Priority Date/Time Associated Diagnosis Comments XR ELBOW 3+ VW LEFT STAT 09/01/2018 1 :38 PM EST NV APPLICATION CAST SHOULDER HAND LONG ARM Routine 09/01/2018 1:18 PM EST NV APPLICATION LONG ARM SPLINT SHOULDER HAND Routine [...] DIAGNOSTIC ANURAG GING ORDERABLES Final Result * NV APPLICATION LONG ARM SPLINT SHOULDER HAND, NV APPLICATION CAST SHOULDER HAND LONG ARM (09/01/2018 [...]
--- OUTSIDE RECORDS SUMMARY | 2024-06-19 08:46 | XMS_ITS | Encounter Summary ---
[facility] Address [address] [place] [address] Care Team Providers Care Research Test Engine Operator Name Role Phone Unavailable Primary Care Provider Unavailabl e Reason for Visit * (Emergency) - Closed Specialty Diagnoses / Procedures Referred By Xochitl t Referred To Contact Radiology Diagnoses Chest pain, unspecified type Procedures XR Chest 1 View Fabiola Guzman MD [address] [place] [address] [place] [address] Phone: tel: fax: Referral ID Status Reason Start Date Expiration Date Visits Re quested Visits Authorized [id number] Closed 08/28/2018 08/28/2019 1 1 Encounter Details Date Type Department Care Team (Latest Contact Info) Description 08/28/2018 1:42 PM EST - 08/28/2018 11:59 PM [facility] Hospital Encounter [facility] XRAY [address] [place] [address] Discharge Disposition: Home or Self [...]
--- OUTSIDE RECORDS SUMMARY | 2024-06-19 08:46 | XMS_ITS | Encounter Summary ---
Author Organization [facility] Address [address] [place] [address] Care Team Providers Care Special Certificate Dictator Name Role Phone Unavailable Primary Care Provider Unavailabl e Reason for Visit * Reason Comments Fall Encounter Details Date Type Department Care Team (Late st Contact Info) Description 10/09/2018 7:27 PM EDT - 10/09/2018 9:06 PM EDT Emergency [facility] EMERGENCY DEPARTMENT [address] [place] [phone] Dominik Rizo MD [address] [place] [address] Acute right-sided low back pain without sciatica [...] Care Everywhere. * Acute Back Pain Adult (Pakistani) * Knee Pain Adult [id number] (Pakistani) documented in this encounter Medications at Time [...] Modality Lower Extremities, Knee Left [facility] 10/10/2018 7:37 AM EDT Impressions 10/10/2018 [...]
--- OUTSIDE RECORDS SUMMARY | 2024-06-19 08:47 | XMS_ITS | Encounter Summary ---
Author Organization [facility] Address [address] [place] [address] Care Team Providers Care Shells Inspector Name Role Phone Unavailable Primary Care [...] Expiration Date Visits Re quested Visits Authorized [id number] Closed 04/07/2018 04/07/2019 1 1 Reason for Visit * Hospital - Outpatient (Routine) - Closed Specialty Diagnoses / Procedures Referred By Xochitl burt Referred To Contact Radiology Diagnoses Type 2 diabetes mellitus with ESRD (end-stage renal disease) Procedures US Renal Bilateral Chacha Gama DO Phone: tel: fax: Referral ID Status Reason Start Date Expiration Date Visits Re quested Visits Authorized [id number] Closed 04/07/2018 04/07/2019 1 1 Encounter Details Date Type Department Care Team (Late st Contact Info) Description 04/13/2018 12:00 PM EDT - 04/13/2018 11:59 PM EDT Hospital Encounter [facility] [address] [place] [id number] Chacha Gama DO [address] [place] [id number] Type 2 diabetes mellitus with ESRD (end-stage [...]
--- OUTSIDE RECORDS SUMMARY | 2024-06-19 08:47 | XMS_ITS | Encounter Summary ---
[facility] Address [address] [place] [address] Care Team Providers Care Setter Cold Rolling Machine Name Role Phone Unavailable Primary Care Provider Unavailabl e Encounter Details Date Type Department Care Team (Late st Contact Info) Description 06/16/2018 Readmission Management [facility] [address] [place] [phone] Gianni Hardwick, RN Social History Tobacco [...] Week 1 Survey [facility]es [facility] Does the patient have one of the [...]
--- OUTSIDE RECORDS SUMMARY | 2024-06-19 08:47 | XMS_ITS | Encounter Summary ---
[facility] [address] [place] [id number] Care Team Providers Care Tar Kettle Runner Name Role Phone Unavailable Primary Care Provider Unavailabl e Reason for Referral * Diagnostic Imaging (Routine) - Closed Specialty Diagnoses / Procedures Referred By Xochitl burt Referred To Contact Radiology Diagnoses Acute renal failure, unspecified acute renal failure type Procedures CT Needle Biopsy Kidney Renal Ibrahima Talamantes MD [address] [address] Phone: tel: Referral ID Status Reason Start Date Expiration Date Visits Re quested Visits Authorized [id number] Closed 05/22/2018 05/22/2019 1 1 Reason for Visit * Auth/Cert Specialty Diagnoses / Procedures Referred By Xochitl burt Referred To Contact Diagnoses Acute renal failure, unspecified acute renal failure type Acute renal failure, unspecified acute renal failure type Procedures CT NEEDLE BIOPSY KIDNEY RENAL Referral ID Status Reason Start Date Expiration Date Visits Re quested Visits Authorized [id number] 1 1 Encounter Details Date Type Department Care Team (Latest Contact Info) Description 06/13/2018 8:21 AM EST - 06/14/2018 12:52 PM EST Hospital Encounter [address] [address] Ibrahima Talamantes MD Acute renal [...] 06/14/2018 12:25 PM EST Discharge Planning Assessment [facility] Patient Name: Crystal [place] Today's Date: 06/14/2018 Admit Date: 06/13/2018 Discharge Needs Assessment Row Name 06/14/18 6675 Living Environment Lives With child(karlo), dependent;significant other [...] Discharge none Discharge Plan Row Name 06/14/18 1163 Plan Plan Plan is home with Fiance [...] (Kidney Disease, Chronic/End Stage Renal Disease) 06/13/18 7879 06/14/18 035 Goal/Outcome Evaluation Problems Assessed (Chronic [...] want to and renal diet. Silvia Zee chargemaster analyst nurse in to speakwith patient. Dr. Talamantes [...] Zee RN - 06/13/2018 5:08 PM EST jackerman reports to room after pt began getting upset about orders. Pt upset that she has diet restrictions, Pt eats whatever she wants at home and wishes to here as well. Pt also does not wish to be on bedrest as ordered. jackerman spoke to this evening to inform. MD states will not change orders and encourages pt to stay due to risk of bleeding. jackerman spoke to pt again. Pt states understanding risk for bleeding. Pt agrees to not go all the way into bathroom but will use BSC stating she is unable to use a bedpan. jackerman encourages pt to use bedpan to follow orders. Pt states will send visitor in room with her to get food for her. jackerman encouraged pt to follow MD orders. Pt [...] - 130 mg/dL 06/14/2018 8:22 AM EST [facility] Blood 06/14/2018 8:20 AM EST 06/14/2018 8:22 AM EST Ibrahima Talamantes MD POINT OF CARE TEST ORD ERABLES Final Result [facility]
[address] [place] [address], * (ABNORMAL) Hemoglobin (06/14/2018 5:12 AM EST) Hemoglobin 10.4(L) 11.5 - 15.5 g/dL 06/14/2018 5:51 AM EST [facility] Blood Venipuncture / Unknown 06/14/2018 5:12 AM EST 06/14/2018 5:32 AM EST Holden Lamin Sands MD LAB BLOOD ORDERABLES Amy kellen Result [facility]
[address] [place] [address], * (ABNORMAL) Basic Metabolic Panel (06/14/2018 5:12 AM EST) Glucose 178(H) 70 - 100 mg/dL 06/14/2018 6:07 AM EST [facility] BUN 38(H) 9 - 23 mg/dL 06/14/2018 6:07 AM EST [facility] Creatinine 2.69(H) 0.60 - 1.30 mg/dL 06/14/2018 6:07 AM EST [facility] Sodium 139 132 - 146 mmol/L 06/14/2018 6:07 AM EST [facility] Potassium 5.3 3.5 - 5.5 mmol/L 06/14/2018 6:07 AM EST [facility] Chloride 115(H) 99 - 109 mmol/L 06/14/2018 6:07 AM EST [facility] CO2 18.0(L) 20.0 - 31.0 mmol/L 06/14/2018 6:07 AM EST [facility] Calcium 8.3(L) 8.7 - 10.4 mg/dL 06/14/2018 6:07 AM EST [facility] eGFR Non Amer 21(L) >60 mL/min/1.7 3 06/14/2018 6:07 AM EST [facility] BUN/Creatinine Ratio 14.1 7.0 - 25.0 06/14/2018 6:07 AM EST [facility] Anion Gap 6.0 3.0 - 11.0 mmol/L 06/14/2018 6:07 AM EST [facility] Blood Venipuncture / Unknown 06/14/2018 5:12 AM EST 06/14/2018 5:32 AM EST Narrative [facility] - 06/14/2018 6:07 AM EST [...] ORDERABLES Amy l Result Performing Organization Address [facility] de Phone Number [facility]
[address] [place] [address], * (ABNORMAL) POC Glucose Once (06/13/2018 8:58 PM EST) Glucose 211(H) 70 - 130 mg/dL 06/13/2018 9:10 PM EST [facility] Blood 06/13/2018 8:58 PM EST 06/13/2018 9:10 PM EST Ibrahima Talamantes MD POINT OF CARE TEST ORD ERABLES Final Result Performing Organization Address [facility] de Phone Number [facility]
[address] [place] [address], * (ABNORMAL) Hemoglobin (06/13/2018 8:15 PM EST) Hemoglobin 9.9(L) 11.5 - 15.5 g/dL 06/13/2018 8:22 PM EST [facility] Blood Venipuncture / Unknown 06/13/2018 8:15 PM EST 06/13/2018 8:20 PM EST Adina Sands MD LAB BLOOD ORDERABLES Amy l Result Performing Organization Address [facility] de Phone Number [facility]
[address] [place] [address], * (ABNORMAL) Hemoglobin (06/13/2018 5:40 PM EST) Hemoglobin 10.1(L) 11.5 - 15.5 g/dL 06/13/2018 6:06 PM EST [facility] Blood Venipuncture / Unknown 06/13/2018 5:40 PM EST 06/13/2018 6:01 PM EST Adina Sands MD LAB BLOOD ORDERABLES Amy l Result [facility]
[address] [place] [address], * ECG 12 Lead (06/13/2018 4:29 PM [...] ORDERABLES Final Res ult Performing Organization Address [facility] Co de Phone Number ECG * (ABNORMAL) POC Glucose Once (06/13/2018 3:52 PM EST) Glucose 204(H) 70 - 130 mg/dL 06/13/2018 3:54 PM EST [facility] Blood 06/13/2018 3:52 PM EST 06/13/2018 3:54 PM EST Ibrahima Talamantes MD POINT OF CARE TEST ORD ERABLES Final Result Performing Organization Address [facility] de Phone Number [facility]
[address] [place] [address], * POC Glucose Once (06/13/2018 1:49 PM EST) Glucose 84 70 - 130 mg/dL 06/13/2018 1:54 PM EST [facility] Blood 06/13/2018 1:49 PM EST 06/13/2018 1:54 PM EST Ibrahima Talamantes MD POINT OF CARE TEST ORD ERABLES Final Result Performing Organization Address [facility] de Phone Number [facility]
[address] [place] [address], * CT Needle Biopsy Kidney Renal (06/13/2018 [...] Case Report Surgical Pathology Report ? Case: [id number] ? Authorizing Provider: ??Albin, Ibrahima Branch, ?? Collected: ? 06/13/2018 01:28 PM ? MD ? Ordering Location: ? [facility] ?? Received: ?06/13/2018 01:52 PM ? 4D ? Pathologist: ? Cb Cohn, MD ? Specimen: ?Kidney, Left ? 06/29/2018 12:05 PM EST [facility] Kidney Biopsy Report, Addendum Testing performed at outside laboratory. See scanned report. 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 Patchy numerous eosinophils in the early atrophic area. Testing performed at outside laboratory. See scanned report. 06/29/2018 12:05 PM EST [facility] Tissue Specimen from kidney / Unknown Collection / Unknown 06/13/2018 1:28 PM EST 06/13/2018 1:52 PM EST Ibrahima Talamantes MD PATHOLOGY/CYTOLOGY ORD ERABLES Edited Result - Final Performing Organization Address City/[facility]/ZIP Co de Phone Number [facility]
[address] [place] [address], * (ABNORMAL) POC Glucose Once (06/13/2018 12:51 PM EST) Glucose 65(L) 70 - 130 mg/dL 06/13/2018 12:52 PM EST [facility] Blood 06/13/2018 12:5 1 PM EST 06/13/2018 12:52 PM EST Ibrahima Talamantes MD POINT OF CARE TEST ORD ERABLES Final Result Performing Organization Address City/[facility]/ZIP Co de Phone Number [facility]
[address] [place] [address], * POC Glucose Once (06/13/2018 11:57 AM EST) Glucose 81 70 - 130 mg/dL 06/13/2018 12:01 PM EST [facility] Blood 06/13/2018 11:5 7 AM EST 06/13/2018 12:01 PM EST Ibrahima Talamantes MD POINT OF CARE TEST ORD ERABLES Final Result Performing Organization Address City/[facility]/ZIP Co de Phone Number [facility]
[address] [place] [address], * (ABNORMAL) POC Glucose Once (06/13/2018 11:45 AM EST) Glucose 47(LL) 70 - 130 mg/dL 06/13/2018 11:53 AM EST [facility] Blood 06/13/2018 11:4 5 AM EST 06/13/2018 11:53 AM EST us Ibrahima Talamantes MD POINT OF CARE TEST ORD ERABLES Final Result Performing Organization Address [facility] Co de Phone Number [facility]
[address] [place] [address], * ABO RH Specimen Verification (06/13/2018 10:09 AM EST) ABO Type A 06/13/2018 10:30 AM EST [facility] RH type Positive 06/13/2018 10:30 AM EST [facility] Blood Venipuncture / Unknown 06/13/2018 10:09 AM EST 06/13/2018 10:13 AM EST us Ibrahima Talamantes MD BLOOD BANK TEST ORDERA BLES Final Result Performing Organization Address City/[facility]/ZIP Co de Phone Number [facility]
[address] [place] [address], * (ABNORMAL) POC Glucose Once (06/13/2018 9:01 AM EST) Glucose 148(H) 70 - 130 mg/dL 06/13/2018 9:03 AM EST [facility] Blood 06/13/2018 9:01 AM EST 06/13/2018 9:03 AM EST us Ibrahima Talamantes MD POINT OF CARE TEST ORD ERABLES Final Result Performing Organization Address City/[facility]/ZIP Co de Phone Number [facility]
[address] [place] [address], * Platelet Function Test (06/13/2018 8:57 AM EST) Pathologist [facility] Collagen/Epine phrine 121 72 - 192 Seconds 06/13/2018 9:56 AM EST [facility] Collagen/ADP 86 54 - 123 Seconds 06/13/2018 9:56 AM EST [facility] Blood Venipuncture / Unknown 06/13/2018 8:57 AM EST 06/13/2018 9:27 AM EST [facility] - 06/13/2018 9:56 AM EST PFA Interpretation Norm ADP / Norm EPI: Normal Plt Function ? Norm ADP / Abn EPI: Drug Induced Platelet Dysfunction, most commonly seen with Aspirin ? Abn ADP / Abn EPI: Abnormal Platelet Function, recommend further evaluation Ibrahima Talamantes MD LAB BLOOD ORDERABLES F inal Result Performing Organization Address City/[facility]/ZIP Co de Phone Number [facility]
[address] [place] [address], * Type & Screen (06/13/2018 8:57 AM EST) Pathologist [facility] ABO Type A 06/13/2018 10:23 AM EST [facility] RH type Positive 06/13/2018 10:23 AM [facility] Antibody Screen Negative 06/13/2018 10:23 AM [facility] T&S Expiration Date 06/16/2018 11:59:59 PM 06/13/2018 10:23 AM [facility] Blood Venipuncture / Unknown 06/13/2018 8:57 AM EST 06/13/2018 9:23 AM EST Ibrahima Talamantes MD BLOOD BANK TEST ORDERA BLES Edited Result - Final [facility]
[address] [place] [address], * (ABNORMAL) Renal Function Panel (06/13/2018 8:57 AM EST) Glucose 140(H) 70 - 100 mg/dL 06/13/2018 9:54 AM [facility] BUN 36(H) 9 - 23 mg/dL 06/13/2018 9:54 AM [facility] Creatinine 2.63(H) 0.60 - 1.30 mg/dL 06/13/2018 9:54 AM [facility] Sodium 137 132 - 146 mmol/L 06/13/2018 9:54 AM [facility] Potassium 5.7(H) 3.5 - 5.5 mmol/L 06/13/2018 9:54 AM [facility] Chloride 112(H) 99 - 109 mmol/L 06/13/2018 9:54 AM [facility] CO2 20.0 20.0 - 31.0 mmol/L 06/13/2018 9:54 AM [facility] Calcium 8.5(L) 8.7 - 10.4 mg/dL 06/13/2018 9:54 AM [facility] Albumin 4.15 3.20 - 4.80 g/dL 06/13/2018 9:54 AM [facility] Phosphorus 5.0 2.4 - 5.1 mg/dL 06/13/2018 9:54 AM EST [facility] Anion Gap 5.0 3.0 - 11.0 mmol/L 06/13/2018 9:54 AM EST [facility] BUN/Creatinine Ratio 13.7 7.0 - 25.0 06/13/2018 9:54 AM EST [facility] eGFR Non Amer 22(L) >60 mL/min/1.7 3 06/13/2018 9:54 AM EST [facility] Blood Venipuncture / Unknown 06/13/2018 8:57 AM EST 06/13/2018 9:21 AM EST Narrative [facility] - 06/13/2018 9:54 AM EST [...] MD LAB BLOOD ORDERABLES F inal Result [facility]
[address] [place] [address], * Protime-INR (06/13/2018 8:57 AM EST) Protime 10.5 9.6 - 11.5 Seconds 06/13/2018 9:47 AM EST [facility] INR 1.00 0.91 - 1.09 06/13/2018 9:47 AM EST [facility] Blood Venipuncture / Unknown 06/13/2018 8:57 AM EST 06/13/2018 9:27 AM EST Ibrahima Talamantes MD LAB BLOOD ORDERABLES F inal Result Performing Organization Address [facility]/ZIP Co de Phone Number [facility]
[address] [place] [address], * aPTT (06/13/2018 8:57 AM EST) Pathologist [facility] PTT 28.7 24.0 - 31.0 seconds 06/13/2018 9:47 AM EST [facility] Blood Venipuncture / Unknown 06/13/2018 8:57 AM EST 06/13/2018 9:27 AM EST [facility] - 06/13/2018 9:47 AM EST PTT = The equivalent PTT values for the therapeutic range of heparin levels at 0.3 to 0.5 U/ml are 55 to 70 seconds. Ibrahima Talamantes MD LAB BLOOD ORDERABLES F inal Result Performing Organization Address [facility] de Phone Number [facility]
[address] [place] [address], * (ABNORMAL) CBC (No Diff) (06/13/2018 8:57 AM EST) Pathologist [facility] WBC 10.16 3.50 - 10.80 10*3/mm3 06/13/2018 9:34 AM EST [facility] RBC 3.75(L) 3.89 - 5.14 10*6/mm3 06/13/2018 9:34 AM EST [facility] Hemoglobin 10.7(L) 11.5 - 15.5 g/dL 06/13/2018 9:34 AM EST [facility] Hematocrit 34.5 34.5 - 44.0 % 06/13/2018 9:34 AM [facility] MCV 92.0 80.0 - 99.0 fL 06/13/2018 9:34 AM EST [facility] MCH 28.5 27.0 - 31.0 pg 06/13/2018 9:34 AM [facility] MCHC 31.0(L) 32.0 - 36.0 g/dL 06/13/2018 9:34 AM EST [facility] RDW 12.9 11.3 - 14.5 % 06/13/2018 9:34 AM EST [facility] RDW-SD 43.4 37.0 - 54.0 fl 06/13/2018 9:34 AM EST [facility] MPV 13.0(H) 6.0 - 12.0 fL 06/13/2018 9:34 AM EST [facility] Platelets 268 150 - 450 10*3/mm3 06/13/2018 9:34 AM EST [facility] Blood Venipuncture / Unknown 06/13/2018 8:57 AM EST 06/13/2018 9:27 AM EST Ibrahima Talamantes MD LAB BLOOD ORDERABLES F inal Result Performing Organization Address City/State/[facility] Co de Phone Number [facility]
[address] [place] [address], documented in this encounter Visit Diagnoses Diagnosis [...] at 1445, For 1 dose, Warning: The control clerk repairs recommends against administering with sorbitol due to [...] at 1445, For 1 dose, Warning: The control clerk repairs recommends against administering with sorbitol due to [...] from patient's vein. 1214 (Given - Provider: Kraine Britt RN) sodium bicarbonate tablet 1,300 mg [...]
--- OUTSIDE RECORDS SUMMARY | 2024-06-19 08:47 | XMS_ITS | Encounter Summary ---
[facility] [address] [place] [address] Care Team Providers Care City Collector Name Role Phone Unavailable Primary Care Provider Unavailabl e Encounter Details Date Type Department Care Team (Late st Contact Info) Description 06/14/2018 Telephone [facility] [address] [place] [id number] Ibrahima Talamantes MD Social History Tobacco Use [...]
--- OUTSIDE RECORDS SUMMARY | 2024-06-19 08:47 | XMS_ITS | Encounter Summary ---
[facility] [address] [place] [address] Care Team Providers Care Application Support Developer Name Role Phone Unavailable Primary Care Provider Unavailabl e Encounter Details Date Type Department Care Team (Late st Contact Info) Description 04/06/2018 2:35 PM EDT Lab [facility] [address] [place] [address] Proteinuria, unspecified type Social History [...] Antibody 4th Generation (04/06/2018 2:41 PM EDT) [facility] HIV-1/ HIV-2 Non-Reacti ve Non-Reacti ve 04/06/2018 8:19 PM EDT [facility] HIV-1 P24 Ag Screen Non-Reacti ve Non-Reacti ve 04/06/2018 8:19 PM EDT [facility] Blood Venipuncture / Unknown 04/06/2018 2:41 PM EDT 04/06/2018 3:38 PM EDT Chacha Shekhar Gama DO LAB BLOOD ORDERABLES F inal Result [facility]
[address] [place] [id number], * Hepatitis Panel, Acute (04/06/2018 2:41 PM EDT) [facility] Hep A IgM Negative Negative 04/07/2018 9:17 [...] with a HCV Nucleic Acid Amplification test ([id number]). Blood Venipuncture / Unknown 04/06/2018 2:41 PM EDT 04/06/2018 3:38 PM EDT Narrative [facility] - 04/07/2018 9:17 AM EDT Performed at: ??[address] - [address], [place], [place] ??[id number] Medical Assistant Ob Gyn: Jacob Whaley PhD, Phone: ??[phone] us Chacha Gama DO LAB BLOOD ORDERABLES F inal Result [facility] [address] [place] [address], * GIANCARLO Comprehensive Panel (04/06/2018 2:41 PM EDT) Anti-DNA (DS) Ab Qn 1 0 - 9 IU/mL 04/07/2018 2:15 PM EDT [facility] Comment: ? Negative ?<5 ? Equivocal ??5 - 9 ? Positive ?>9 BOILERMAKER HELPER Antibodies <0.2 0.0 - 0.9 AI 04/07/2018 [...] Sm (anti-Leo) ?SLE ?15 - 30% ?--------- BOILERMAKER HELPER ?Mixed Connective Tissue ? Disease ? 95% [...] PM EDT 04/06/2018 3:38 PM EDT Narrative [facility] - 04/07/2018 2:15 PM EDT Performed at: ??01 - [address] ??[id number] Medical Assistant Ob Gyn: Jacob Whaley PhD, Phone: ??[phone] us Chacha Gama DO LAB BLOOD ORDERABLES F inal Result [facility] [address] [place] [address], * Anti-Leo Antibody (04/06/2018 2:41 PM EDT) Leo Antibodies <0.2 0.0 - 0.9 AI 04/07/2018 2:15 PM EDT [facility] Blood Venipuncture / Unknown 04/06/2018 2:41 PM EDT 04/06/2018 3:38 PM EDT Narrative [facility] - 04/07/2018 2:15 PM EDT Performed at: ??[address] - [address] ??[id number] Medical Assistant Ob Gyn: Jacob Whaley PhD, Phone: ??[phone] Chacha Shekhar Gama DO LAB BLOOD ORDERABLES F inal Result Performing Organization Address [facility] Co de Phone Number [facility] [address] [place] [address], * Antinuclear Antibodies Direct (04/06/2018 2:41 PM EDT) [facility] GIANCARLO Direct Negative Negative 04/07/2018 2:15 PM EDT [facility] Blood Venipuncture / Unknown 04/06/2018 2:41 PM EDT 04/06/2018 3:38 PM EDT Narrative [facility] - 04/07/2018 2:15 PM EDT Performed at: ??[address] ??[id number] Medical Assistant Ob Gyn: Jacob Whaley PhD, Phone: ??[phone] Chacha Gama DO LAB BLOOD ORDERABLES F inal Result Performing Organization Address [facility] de Phone Number [facility] [address] [place] [address], * ANCA Panel (04/06/2018 2:41 PM EDT) Pathologist [facility] Myeloperoxidase Ab <9.0 0.0 - 9.0 U/mL 04/08/2018 5:08 PM EDT [facility] Antiproteinase 3 (TX-3) <3.5 0.0 - 3.5 U/mL 04/08/2018 5:08 [...] up testing of positive sera with both TX-3 and MPO-ANCA enzyme immunoassays. As many as [...] PM EDT 04/06/2018 3:38 PM EDT N[facility]ative [facility] 04/08/2018 5:08 PM EDT Performed at: ??01 - [address] ??[id number] Medical Assistant Ob Gyn: Ibrahima Kelly MD, Phone: ??[phone] Performed at: ??02 - [address] ??[id number] Medical Assistant Ob Gyn: Jacob Whaley PhD, Phone: ??[phone] Chacha Gama DO LAB BLOOD ORDERABLES F inal Result [facility] [address] [place] [address], documented in this encounter Visit Diagnoses Diagnosis Proteinuria, unspecified type documented in this encounter
--- OUTSIDE RECORDS SUMMARY | 2024-06-19 08:47 | XMS_ITS | Encounter Summary ---
Author Organization [facility] ystem Address [address] [place] [address] Care Team Providers Care Vacuum Cleaner Assembler Name Role Phone Unavailable Primary Care Provider Unavailabl e Reason for Visit * Reason Comments Chest Pain Encounter Details Date Type Department Care Team (Late st Contact Info) Description 03/24/2018 9:11 PM EDT - 03/25/2018 12:51 AM EDT Emergency [facility] EMERGENCY DEPARTMENT [address] [place] [phone] Christopher Aggarwal MD Chest pain, unspecified [...] Care Everywhere. * Upper Respiratory Infection Adult Bfaa-na-Vxgw (Surinamese) * Nonspecific Chest Pain Upwu-zx-Rmdp (Surinamese) * Dehydration Adult Cokj-ho-Qxrt (Surinamese) * Hyperglycemia (Surinamese) documented in this encounter Medications at Time [...] congestion, cough, sinus pressure. Have been using [id number]-udf-hyoiaip symptomatic medications without any relief. Several hours [...] continue to monitor Sarah Shaffer RN 03/24/18 [id number] documented in this encounter Plan of Treatment [...] EDT) Site OTHER 03/25/2018 12:15 AM EDT [facility] RESPIRATORY [facility] pH, Venous 7.335 7.320 - 7.420 pH Units 03/25/2018 12:15 AM EDT [facility] RESPIR[facility] THERAPY pCO2, Venous 34.6(L) 40.0 - 50.0 mm Hg 03/25/2018 12:15 AM EDT [facility] RESPIRATORY THERAPY pO2, Venous 26.0(L) 30.0 - 50.0 mm Hg 03/25/2018 12:15 AM EDT [facility] RESPIRATORY [facility] HCO3, Venous 18.5(L) 22.0 - 28.0 mmol/L 03/25/2018 12:15 AM EDT [facility] Base Excess, Venous -6.7(L) 0.0 - 2.0 mmol/L 03/25/2018 12:15 AM EDT [facility] RESPIRATORY [facility] O2 Saturation, Venous 45.9 45.0 - 75.0 % 03/25/2018 12:15 AM EDT [facility] Barometric Pressure for Blood Gas 736 mmHg 03/25/2018 12:15 AM EDT [facility] RESPIRATORY THERAPY Modality Room Air 03/25/2018 12:15 AM EDT [facility] RESPIRATORY [facility] Ventilator Mode NA 8 12:15 AM EDT [facility] RESPIRATORY [facility] Venous Blood 03/25/2018 12:1 5 AM EDT 03/25/2018 12:15 AM EDT us Christopher Aggarwal MD LAB BLOOD ORDERABLES Fin al Result [facility] RESPIRATORY [facility]
[address] [place] [address], * XR Hip With or Without Pelvis [...] None Seen /HPF 03/24/2018 11:30 PM EDT [facility] WBC, UA 3-5(A) None Seen /HPF 03/24/2018 11:30 PM EDT [facility] Bacteria, UA 1+(A) None Seen /HPF 03/24/2018 11:30 PM EDT [facility] Squamous Epithelial Cells, UA 0-2 None Seen, 0-2 /HPF 03/24/2018 11:30 PM EDT [facility] Hyaline Casts, UA None Seen None Seen /LPF 03/24/2018 11:30 PM EDT [facility] Methodology Manual Light Microscopy 03/24/2018 11:30 PM EDT [facility] Urine Urine specimen collection, clean catch / Unknown Collection / Unknown 03/24/2018 11:15 PM EDT 03/24/2018 11:17 PM EDT Christopher Aggarwal MD URINE ORDERABLES Final R esult [facility]
[address] [place] [address], [place] [phone] * (ABNORMAL) Urinalysis With Microscopic If Indicated (No Culture) - Urine, Clean Catch (03/24/2018 11:15 PM EDT) Color, UA Straw Yellow, Straw 03/24/2018 11:22 PM EDT [facility] Appearance, UA Clear Clear 03/24/2018 11:22 PM EDT [facility] pH, UA 5.5 5.0 - 8.0 03/24/2018 11:22 PM EDT [facility] Specific [place], UA 1.025 1.005 - 1.030 03/24/2018 11:22 PM EDT [facility] Glucose, UA >=1000 mg/dL (3+)(A) Negative 03/24/2018 11:22 PM EDT [facility] Ketones, UA Negative Negative 03/24/2018 11:22 PM EDT [facility] Bilirubin, UA Negative Negative 03/24/2018 11:22 PM EDT [facility] Blood, UA Small (1+)(A) Negative 03/24/2018 11:22 PM EDT [facility] Protein, UA >=300 mg/dL (3+)(A) Negative 03/24/2018 11:22 PM EDT [facility] Leuk Esterase, UA Negative Negative 03/24/2018 11:22 PM EDT [facility] Nitrite, UA Negative Negative 03/24/2018 11:22 PM EDT [facility] Urobilinogen, UA 0.2 E.U./dL 0.2 - 1.0 E.U./dL 03/24/2018 11:22 PM EDT [facility] Urine Urine specimen collection, clean catch / Unknown Collection / Unknown 03/24/2018 11:15 PM EDT 03/24/2018 11:17 PM EDT Christopher Aggarwal MD URINE ORDERABLES Final R esult [facility]
[address] [place] [id number], * , Urine - Urine, Clean Catch (03/24/2018 11:15 PM EDT) HCG, Urine QL Negative Negative 03/24/2018 11:22 PM EDT [facility] Urine Urine specimen collection, clean catch / Unknown Collection / Unknown 03/24/2018 11:15 PM EDT 03/24/2018 11:17 PM EDT Christopher Aggarwal MD URINE ORDERABLES Final R esult [facility]
[address] [place] [address], [place] [phone] * (ABNORMAL) CBC Auto Differential (03/24/2018 10:22 PM EDT) WBC 10.76 4.80 - 10.80 10*3/mm3 03/24/2018 10:30 PM EDT [facility] RBC 3.96(L) 4.20 - 5.40 10*6/mm3 03/24/2018 10:30 PM EDT [facility] Hemoglobin 11.6(L) 12.0 - 16.0 g/dL 03/24/2018 10:30 PM EDT [facility] Hematocrit 33.0(L) 37.0 - 47.0 % 03/24/2018 10:30 PM EDT [facility] MCV 83.3 81.0 - 99.0 fL 03/24/2018 10:30 PM EDT [facility] MCH 29.3 27.0 - 31.0 pg 03/24/2018 10:30 PM EDT [facility] MCHC 35.2 30.0 - 37.0 g/dL 03/24/2018 10:30 PM EDT [facility] RDW 11.7 11.5 - 14.5 % 03/24/2018 10:30 PM EDT [facility] RDW-SD 35.4(L) 37.0 - 54.0 fl 03/24/2018 10:30 PM EDT [facility] MPV 12.6(H) 6.0 - 12.0 fL 03/24/2018 10:30 PM EDT [facility] Platelets 260 130 - 400 10*3/mm3 03/24/2018 10:30 PM EDT [facility] Neutrophil % 47.5 37.0 - 80.0 % 03/24/2018 10:30 PM EDT [facility] Lymphocyte % 42.8 10.0 - 50.0 % 03/24/2018 10:30 PM EDT [facility] Monocyte % 5.1 0.0 - 12.0 % 03/24/2018 10:30 PM EDT [facility] Eosinophil % 3.3 0.0 - 7.0 % 03/24/2018 10:30 PM EDT [facility] Basophil % 0.4 0.0 - 2.5 % 03/24/2018 10:30 PM EDT [facility] Immature Grans % 0.9(H) 0.0 - 0.6 % 03/24/2018 10:30 PM EDT [facility] Neutrophils, Absolute 5.11 2.00 - 6.90 10*3/mm3 03/24/2018 10:30 PM EDT [facility] Lymphocytes, Absolute 4.61(H) 0.60 - 3.40 10*3/mm3 03/24/2018 10:30 PM EDT [facility] Monocytes, Absolute 0.55 0.00 - 0.90 10*3/mm3 03/24/2018 10:30 PM EDT [facility] Eosinophils, Absolute 0.35 0.00 - 0.70 10*3/mm3 03/24/2018 10:30 PM EDT [facility] Basophils, Absolute 0.04 0.00 - 0.20 10*3/mm3 03/24/2018 10:30 PM EDT [facility] Immature Grans, Absolute 0.10(H) 0.00 - 0.06 10*3/mm3 03/24/2018 10:30 PM EDT [facility] nRBC 0.0 0.0 - 0.0 /100 WBC 03/24/2018 10:30 PM EDT [facility] Blood Venipuncture / Unknown 03/24/2018 10:22 PM EDT 03/24/2018 10:27 PM EDT Christopher Aggarwal MD LAB BLOOD ORDERABLES Fin al Result [facility]
[address] [place] [id number], * Procalcitonin (03/24/2018 10:22 PM EDT) Procalcitonin <0.05 <=0.25 ng/mL 03/24/2018 11:23 PM EDT [facility] Blood Venipuncture / Unknown 03/24/2018 10:22 PM EDT 03/24/2018 10:27 PM EDT Narrative [facility] - 03/24/2018 11:23 PM EDT [...] ORDERABLES Fin al Result Performing Organization Address City/[facility]/ZIP Co de Phone Number [facility]
[address] [place] [address], * Lactic Acid, Plasma (03/24/2018 10:22 PM EDT) Lactate 1.8 0.5 - 2.0 mmol/L 03/24/2018 10:46 PM EDT [facility] Blood Venipuncture / Unknown 03/24/2018 10:22 PM EDT 03/24/2018 10:27 PM EDT us Christopher Aggarwal MD LAB BLOOD ORDERABLES Fin al Result Performing Organization Address [facility] Co de Phone Number [facility]
[address] [place] [address], * Troponin (03/24/2018 10:22 PM EDT) Troponin I <0.012 0.000 - 0.034 ng/mL 03/24/2018 10:57 PM EDT [facility] Blood Venipuncture / Unknown 03/24/2018 10:22 PM EDT 03/24/2018 10:27 PM EDT Narrative [facility] - 03/24/2018 10:57 PM EDT Normal Patient Upper Reference Limit (URL) (99th Percentile)=0.03 ng/mL Non-AMI Illness Reference Limit=0.03-0.11 ng/mL AMI Confirmation=0.12 ng/mL and above us Christopher Aggarwal MD LAB BLOOD ORDERABLES Fin al Result Performing Organization Address City/[facility]/ZIP Co de Phone Number [facility]
[address] [place] [address], * (ABNORMAL) BNP (03/24/2018 10:22 PM EDT) proBNP 249.0(HH) 0.0 - 125.0 pg/mL 03/24/2018 11:01 PM EDT [facility] Blood Venipuncture / Unknown 03/24/2018 10:22 PM EDT 03/24/2018 10:27 PM EDT Christopher Aggarwal MD LAB BLOOD ORDERABLES Fin al Result [facility]
[address] [place] [address], * Lipase (03/24/2018 10:22 PM EDT) Lipase 207 23 - 300 U/L 03/24/2018 10:57 PM EDT [facility] Blood Venipuncture / Unknown 03/24/2018 10:22 PM EDT 03/24/2018 10:27 PM EDT Christopher Aggarwal MD LAB BLOOD ORDERABLES Fin al Result Performing Organization Address City/[facility]/ZIP Co de Phone Number [facility]
[address] [place] [address], * (ABNORMAL) Comprehensive Metabolic Panel (03/24/2018 10:22 PM EDT) Glucose 422(HH) 74 - 98 mg/dL 03/24/2018 11:01 PM EDT [facility] BUN 29(H) 7 - 20 mg/dL 03/24/2018 11:01 PM EDT [facility] Creatinine 2.00(H) 0.60 - 1.30 mg/dL 03/24/2018 11:01 PM EDT [facility] Sodium 132(L) 137 - 145 mmol/L 03/24/2018 11:01 PM EDT [facility] Potassium 4.1 3.5 - 5.1 mmol/L 03/24/2018 11:01 PM EDT [facility] Chloride 103 98 - 107 mmol/L 03/24/2018 11:01 PM [facility] CO2 16.0(L) 26.0 - 30.0 mmol/L 03/24/2018 11:01 PM [facility] Calcium 8.9 8.4 - 10.2 mg/dL 03/24/2018 11:01 PM [facility] Total Protein 6.6 6.3 - 8.2 g/dL 03/24/2018 11:01 PM [facility] Albumin 3.50 3.50 - 5.00 g/dL 03/24/2018 11:01 PM [facility] ALT (SGPT) 22 13 - 69 U/L 03/24/2018 11:01 PM [facility] AST (SGOT) 12(L) 15 - 46 U/L 03/24/2018 11:01 PM [facility] Alkaline Phosphatase 120 38 - 126 U/L 03/24/2018 11:01 PM [facility] Total Bilirubin 0.2 0.2 - 1.3 mg/dL 03/24/2018 11:01 PM [facility] eGFR Non Amer 30(L) >60 mL/min/1.7 3 03/24/2018 11:01 PM [facility] Globulin 3.1 gm/dL 03/24/2018 11:01 PM [facility] A/G Ratio 1.1 1.0 - 2.0 g/dL 03/24/2018 11:01 PM [facility] BUN/Creatinine Ratio 14.5 7.1 - 23.5 03/24/2018 11:01 PM [facility] Anion Gap 17.1 10.0 - 20.0 mmol/L 03/24/2018 11:01 PM [facility] Blood Venipuncture / Unknown 03/24/2018 10:22 PM EDT 03/24/2018 10:27 PM EDT [facility] - 03/24/2018 11:01 PM EDT GFR Normal >60 Chronic Kidney Disease <60 Kidney Failure <15 us Christopher Aggarwal MD LAB BLOOD ORDERABLES Fin al Result [facility]
[address] [place] [address], documented in this encounter Visit Diagnoses Diagnosis [...]
--- OUTSIDE RECORDS SUMMARY | 2024-06-19 08:47 | XMS_ITS | Encounter Summary ---
[facility] Address [address] [place] [address] Care Team Providers Care Dipping Machine Operator Name Role Phone Unavailable Primary Care Provider Unavailabl e Reason for Visit * (Emergency) - Closed Specialty Diagnoses / Procedures Referred By Xochitl t Referred To Contact Radiology Diagnoses Right upper limb pain Procedures XR Hand 3+ View Right Thomas, Fabiola Vilalfuerte MD [address] [place] [phone] Phone: tel: fax: Referral ID Status Reason Start Date Expiration Date Visits Re quested Visits Authorized [id number] Closed 02/15/2018 02/15/2019 1 1 Encounter Details Date Type Department Care Team (Latest Contact Info) Description 02/15/2018 5:39 PM EDT - 02/15/2018 11:59 PM EDT Hospital Encounter [facility] XRAY [address] [place] [phone] Discharge Disposition: Home or Self [...] Laterality Modality Upper Extremities, Hand Right [facility] 02/15/2018 5:54 PM EDT Impressions [...]
--- OUTSIDE RECORDS SUMMARY | 2024-06-19 08:47 | XMS_ITS | Encounter Summary ---
Author Organization [facility] yste Address [address] [place] [address] Care Team Providers Care Automatic Toe Laster Name Role Phone Unavailable Primary Care Provider Unavailabl e Reason for Visit * (Routine) - Closed Specialty Diagnoses / Procedures Referred By Xochitl t Referred To Contact Radiology Diagnoses Right knee pain, unspecified chronicity Procedures XR Knee 3 View Right Fabiola Guzman MD [address] [place] [phone] Phone: tel: fax: Referral ID Status Reason Start Date Expiration Date Visits Re quested Visits Authorized [id number] Closed 02/06/2018 02/06/2019 1 1 Encounter Details Date Type Department Care Team (Latest Contact Info) Description 02/06/2018 12:45 PM EDT - 02/06/2018 11:59 PM EDT Hospital Encounter [facility] XRAY [address] [place] [address] Fabiola Guzman MD [address] [place] [id number] Discharge Disposition: Home or Self Care [...]
--- OUTSIDE RECORDS SUMMARY | 2024-06-19 08:47 | XMS_ITS | Encounter Summary ---
Author Organization [facility] ystem Address [address] [place] [address] Care Team Providers Care Expansion Joint Finisher Name Role Phone Unavailable Primary Care Provider Unavailabl e Reason for Visit * Reason Comments Tingling Encounter Details Date Type Department Care Team (Late st Contact Info) Description 05/08/2018 6:16 PM EDT - 05/08/2018 6:32 PM EDT Emergency [facility] EMERGENCY DEPARTMENT [address] [place] [phone] Mickey Cerda MD [address] [place] [address] Chronic painful diabetic neuropathy (Primary [...] sent through Care Everywhere. * Neuropathic Pain (Bruneian) documented in this encounter Medications at Time [...]
--- OUTSIDE RECORDS SUMMARY | 2024-06-19 08:47 | XMS_ITS | Encounter Summary ---
Author Organization [facility] ystem Address [address] [place] [address] Care Team Providers Care Tactical Air Control Party Manager Name Role Phone Unavailable Primary Care Provider Unavailabl e Reason for Visit * Reason Comments Hyperglycemia Encounter Details Date Type Department Care Team (Late st Contact Info) Description 03/30/2018 4:35 PM EDT - 03/30/2018 8:20 PM EDT Emergency [facility] EMERGENCY DEPARTMENT [address] [place] [phone] Dominik Rizo MD [address] [place] [address] Hyperglycemia (Primary Dx); Other specified diabetes mellitus [...] insulin a day. Then she saw an nanosystems engineer at [facility] who put her on 2 shots [...] constipation ??? Depression ??? Diabetes mellitus ([facility]) ??? Excessive thirst ??? [...] with long-term current use of insulin ([facility]) Dominik Rizo MD 04/07/18 [...] - 130 mg/dL 03/31/2018 4:35 AM EDT [facility] Comment:Serial Number: [id number]: [id number] Blood 03/30/2018 7:58 PM EDT 03/31/2018 4:35 AM EDT us Dominik Rizo MD POINT OF CARE TEST ORDERABLES Final Result Performing Organization Address [facility]/ZIP Co de Phone Number [facility]
[address] [place] [address], * (ABNORMAL) POC Glucose Once (03/30/2018 6:07 PM EDT) Glucose 534(HH) 70 - 130 mg/dL 03/31/2018 4:31 AM EDT [facility] Comment:Serial Number: [id number]: [id number] Blood 03/30/2018 6:07 PM EDT 03/31/2018 4:30 AM EDT us Dominik Rizo MD POINT OF CARE TEST ORDERABLES Final Result Performing Organization Address [facility] Co de Phone Number [facility]
[address] [place] [address], [place] [phone] * (ABNORMAL) POC Glucose Once (03/30/2018 5:18 PM EDT) Glucose 570(HH) 70 - 130 mg/dL 03/31/2018 4:30 AM EDT [facility] Comment:Serial Number: [id number]: [id number] Blood 03/30/2018 5:18 PM EDT 03/31/2018 4:30 AM EDT us Dominik Rizo MD POINT OF CARE TEST ORDERABLES Final Result [facility]
[address] [place] [address], [place] [phone] * (ABNORMAL) Urinalysis, Microscopic Only - Urine, Clean Catch (03/30/2018 5:02 PM EDT) RBC, UA 3-5(A) None Seen /HPF 03/30/2018 5:43 PM EDT [facility] WBC, UA 3-5(A) None Seen /HPF 03/30/2018 5:43 PM EDT [facility] Bacteria, UA 2+(A) None Seen /HPF 03/30/2018 5:43 PM EDT [facility] Squamous Epithelial Cells, UA 7-12(A) None Seen, 0-2 /HPF 03/30/2018 5:43 PM EDT [facility] Hyaline Casts, UA None Seen None Seen /LPF 03/30/2018 5:43 PM EDT [facility] Methodology Manual Light Microscopy 03/30/2018 5:43 PM EDT [facility] Urine Urine specimen collection, clean catch / Unknown Collection / Unknown 03/30/2018 5:02 PM EDT 03/30/2018 5:11 PM EDT us Triage Protocol Emergency MD URINE ORDERABLES Fi nal Result [facility]
[address] [place] [address], * (ABNORMAL) Urinalysis With Microscopic If Indicated (No Culture) - Urine, Clean Catch (03/30/2018 5:02 PM EDT) Color, UA Straw Yellow, Straw 03/30/2018 5:40 PM EDT [facility] Appearance, UA Clear Clear 03/30/2018 5:40 PM EDT [facility] pH, UA 6.0 5.0 - 8.0 03/30/2018 5:40 PM EDT [facility] Specific [place], UA 1.020 1.005 - 1.030 03/30/2018 5:40 PM EDT [facility] Glucose, UA >=1000 mg/dL (3+)(A) Negative 03/30/2018 5:40 PM EDT [facility] Ketones, UA Negative Negative 03/30/2018 5:40 PM EDT [facility] Bilirubin, UA Negative Negative 03/30/2018 5:40 PM EDT [facility] Blood, UA Small (1+)(A) Negative 03/30/2018 5:40 PM EDT [facility] Protein, UA >=300 mg/dL (3+)(A) Negative 03/30/2018 5:40 PM EDT [facility] Leuk Esterase, UA Negative Negative 03/30/2018 5:40 PM EDT [facility] Nitrite, UA Negative Negative 03/30/2018 5:40 PM EDT [facility] Urobilinogen, UA 0.2 E.U./dL 0.2 - 1.0 E.U./dL 03/30/2018 5:40 PM EDT [facility] Urine Urine specimen collection, clean catch / Unknown Collection / Unknown 03/30/2018 5:02 PM EDT 03/30/2018 5:11 PM EDT us Triage Protocol Emergency MD URINE ORDERABLES Fi nal Result [facility]
[address] [place] [id number], * (ABNORMAL) CBC Auto Differential (03/30/2018 4:54 PM EDT) WBC 9.73 4.80 - 10.80 10*3/mm3 03/30/2018 5:02 PM EDT [facility] RBC 4.28 4.20 - 5.40 10*6/mm3 03/30/2018 5:02 PM EDT [facility] Hemoglobin 12.4 12.0 - 16.0 g/dL 03/30/2018 5:02 PM EDT [facility] Hematocrit 36.6(L) 37.0 - 47.0 % 03/30/2018 5:02 PM EDT [facility] MCV 85.5 81.0 - 99.0 fL 03/30/2018 5:02 PM EDT [facility] MCH 29.0 27.0 - 31.0 pg 03/30/2018 5:02 PM EDT [facility] MCHC 33.9 30.0 - 37.0 g/dL 03/30/2018 5:02 PM EDT [facility] RDW 11.9 11.5 - 14.5 % 03/30/2018 5:02 PM EDT [facility] RDW-SD 37.1 37.0 - 54.0 fl 03/30[facility]2018 [facility] MPV 12.8(H) 6.0 - 12.0 fL 03/30/2018 5:02 PM EDT [facility] Platelets 230 130 - 400 10*3/mm3 03/30/2018 5:02 PM EDT [facility] Neutrophil % 57.9 37.0 - 80.0 % 03/30/2018 5:02 PM EDT [facility] Lymphocyte % 33.4 10.0 - 50.0 % 03/30/2018 5:02 PM EDT [facility] Monocyte % 4.8 0.0 - 12.0 % 03/30/2018 5:02 PM EDT [facility] Eosinophil % 3.0 0.0 - 7.0 % 03/30/2018 5:02 PM EDT [facility] Basophil % 0.5 0.0 - 2.5 % 03/30/2018 5:02 PM EDT [facility] Immature Grans % 0.4 0.0 - 0.6 % 03/30/2018 5:02 PM EDT [facility] Neutrophils, Absolute 5.63 2.00 - 6.90 10*3/mm3 03/30/2018 5:02 PM EDT [facility] Lymphocytes, Absolute 3.25 0.60 - 3.40 10*3/mm3 03/30/2018 5:02 PM EDT [facility] Monocytes, Absolute 0.47 0.00 - 0.90 10*3/mm3 03/30/2018 5:02 PM EDT [facility] Eosinophils, Absolute 0.29 0.00 - 0.70 10*3/mm3 03/30/2018 5:02 PM EDT [facility] Basophils, Absolute 0.05 0.00 - 0.20 10*3/mm3 03/30/2018 5:02 PM EDT [facility] Immature Grans, Absolute 0.04 0.00 - 0.06 10*3/mm3 03/30/2018 5:02 PM EDT [facility] nRBC 0.0 0.0 - 0.0 /100 WBC 03/30/2018 5:02 PM EDT [facility] Blood Venipuncture / Unknown 03/30/2018 4:54 PM EDT 03/30/2018 4:57 PM EDT us Triage Protocol Emergency MD LAB BLOOD ORDERABLE S Final Result [facility]
[address] [place] [address], [place] [phone] * Gold Top - SST (03/30/2018 4:54 PM EDT) Extra Tube Hold for add-ons. 03/30/2018 6:00 PM EDT [facility] Comment:Auto resulted. Blood Venipuncture / Unknown 03/30/2018 4:54 PM EDT 03/30/2018 4:57 PM EDT us Triage Protocol Emergency MD LAB BLOOD ORDER ONL Y Final Result [facility]
[address] [place] [address], [place] [phone] * Lavender Top (03/30/2018 4:54 PM EDT) Extra Tube hold for add-on 03/30/2018 6:00 PM EDT [facility] Comment:Auto resulted Blood Venipuncture / Unknown 03/30/2018 4:54 PM EDT 03/30/2018 4:57 PM EDT Triage Protocol Emergency MD LAB BLOOD ORDER ONL Y Final Result Performing Organization Address City/[facility]/ZIP Co de Phone Number [facility]
[address] [place] [address], * Light Blue Top (03/30/2018 4:54 PM EDT) Extra Tube hold for add-on 03/30/2018 6:00 PM EDT [facility] Comment:Auto resulted Blood Venipuncture / Unknown 03/30/2018 4:54 PM EDT 03/30/2018 4:57 PM EDT Triage Protocol Emergency MD LAB BLOOD ORDER ONL Y Final Result Performing Organization Address City/[facility]/ZIP Co de Phone Number [facility]
[address] [place] [address], [place] [phone] * (ABNORMAL) Comprehensive Metabolic Panel (03/30/2018 4:54 PM EDT) Glucose 613(HH) 74 - 98 mg/dL 03/30/2018 5:41 PM EDT [facility] Comment:Glucose >180, Hemogl obin A1C recommended. BUN 29(H) 7 - 20 mg/dL 03/30/2018 5:41 PM EDT [facility] Creatinine 1.80(H) 0.60 - 1.30 mg/dL 03/30/2018 5:41 PM EDT [facility] Sodium 129(L) 137 - 145 mmol/L 03/30/2018 5:41 PM EDT [facility] Potassium 5.0 3.5 - 5.1 mmol/L 03/30/2018 5:41 PM EDT [facility] Chloride 96(L) 98 - 107 mmol/L 03/30/2018 5:41 PM T [facility] CO2 22.0(L) 26.0 - 30.0 mmol/L 03/30/2018 [facility] Calcium 9.0 8.4 - 10.2 mg/dL 03/30/2018 5:41 PM [facility] Total Protein 7.1 6.3 - 8.2 g/dL 03/30/2018 5:41 PM T [facility] Albumin 3.80 3.50 - 5.00 g/dL 03/30/2018 5:41 PM [facility] ALT (SGPT) 23 13 - 69 U/L 03/30/2018 5:41 PM [facility] AST (SGOT) 14(L) 15 - 46 U/L 03/30/2018 5:41 PM [facility] Alkaline Phosphatase 142(H) 38 - 126 U/L 03/30/2018 5:41 PM [facility] Total Bilirubin 0.2 0.2 - 1.3 mg/dL 03/30/2018 5:41 PM [facility] eGFR Non Amer 34(L) >60 mL/min/1.7 3 03/30/2018 5:41 PM [facility] Globulin 3.3 gm/dL 03/30/2018 5:41 PM [facility] A/G Ratio 1.2 1.0 - 2.0 g/dL 03/30/2018 5:41 PM [facility] BUN/Creatinine Ratio 16.1 7.1 - 23.5 03/30/2018 5:41 PM [facility] Anion Gap 16.0 10.0 - 20.0 mmol/L 03/30/2018 5:41 PM [facility] Blood Venipuncture / Unknown 03/30/2018 4:54 PM EDT 03/30/2018 4:57 PM EDT [facility] - 03/30/2018 5:41 PM EDT GFR Normal >60 Chronic Kidney Disease <60 Kidney Failure <15 us Triage Protocol Emergency MD LAB BLOOD ORDERABLE S Final Result [facility]
[address] [place] [address], [place] [phone] documented in this encounter Visit Diagnoses Diagnosis [...]
--- OUTSIDE RECORDS SUMMARY | 2024-06-19 08:47 | XMS_ITS | Encounter Summary ---
Author Organization [facility] ystem Address [address] [place] [address] Care Team Providers Care Consumer Attorney Name Role Phone Unavailable Primary Care Provider Unavailabl e Reason for Visit * Reason Comments Cough Nasal Congestion Encounter Details Date Type Department Care Team (Late st Contact Info) Description 03/14/2018 10:11 PM EDT - 03/14/2018 10:59 PM EDT Emergency [facility] EMERGENCY DEPARTMENT [address] [place] [phone] Dominik Rizo MD [address] [facility] [address] [place] [address] Nasal congestion (Primary Dx); Nausea and vomiting, [...] through Care Everywhere. * Oxymetazoline nasal spray (Kuwaiti) documented in this encounter Medications at Time [...] unspecified vomiting type Dominik Rizo MD 03/14/18 3000 documented in this encounter Plan of Treatment [...]
--- OUTSIDE RECORDS SUMMARY | 2024-06-19 08:47 | XMS_ITS | Encounter Summary ---
Author Organization [facility] Address [address] [place] [address] Care Team Providers Care Furniture Sprayer Name Role Phone Unavailable Primary Care Provider Unavailabl e Encounter Details Date Type Department Care Team (Late st Contact Info) Description 06/15/2018 Readmission Management [facility] [address] [place] [phone] Beth Mckeon, RN Social History Tobacco [...] Prep Survey Responses Facility patient discharged from? [place] Is patient eligible? Yes Discharge diagnosis Acute [...]
--- OUTSIDE RECORDS SUMMARY | 2024-06-19 08:47 | XMS_ITS | Encounter Summary ---
Author Organization [facility] Address [address] [place] [address] Care Team Providers Care Transactional Attorney Name Role Phone Unavailable Primary Care Provider Unavailabl e Encounter Details Date Type Department Care Team (Late st Contact Info) Description 06/18/2018 Readmission Management [facility] N[facility] CALL [facility] [address] [place] [phone] Oliva Sherman, RN Social History Tobacco [...] Week 1 [facility] [...]
--- OUTSIDE RECORDS SUMMARY | 2024-06-19 08:47 | XMS_ITS | Encounter Summary ---
[facility] Organization [facility] Address [address] [place] [address] Care Team Providers Care Mail Distribution Clerk Name Role Phone Unavailable Primary Care Provider Unavailabl e Reason for Visit * (Emergency) - Closed Specialty Diagnoses / Procedures Referred By Xochitl t Referred To Contact Radiology Diagnoses Pain in finger of left hand Procedures XR hand 3+ vw left Fabiola Guzman MD [address] [place] [phone] Phone: tel: fax: Referral ID Status Reason Start Date Expiration Date Visits Re quested Visits Authorized [id number] Closed 04/24/2018 04/24/2019 1 1 Encounter Details Date Type Department Care Team (Latest Contact Info) Description 04/24/2018 11:35 AM EDT - 04/24/2018 11:59 PM EDT Hospital Encounter [facility] XRAY [address] [place] [address] Fabiola Guzman MD [address] [place] [address] Discharge Disposition: Home or Self Care [...]
--- OUTSIDE RECORDS SUMMARY | 2024-06-19 08:47 | XMS_ITS | Encounter Summary ---
[facility] Address [address] [place] [address] Care Team Providers Care Brake Coupler Dinkey Name Role Phone Unavailable Primary Care Provider Unavailabl e Reason for Visit * (Emergency) - Closed Specialty Diagnoses / Procedures Referred By Xochitl t Referred To Contact Radiology Diagnoses Pain in joint, multiple sites Procedures XR Knee 3 View Left Fabiola Guzman MD [address] [place] [phone] Phone: tel: fax: Referral ID Status Reason Start Date Expiration Date Visits Re quested Visits Authorized [id number] Closed 02/15/2018 02/15/2019 1 1 Encounter Details Date Type Department Care Team (Latest Contact Info) Description 02/15/2018 5:35 PM EDT - 02/15/2018 11:59 PM EDT Hospital Encounter [facility] XRAY [address] [place] [address] Fabiola Guzman MD [address] [place] [phone] Discharge Disposition: Home or Self Care [...] Lower Extremities, Knee Left Radiogra [facility] 02/15/2018 5:53 PM EDT Impressions 02/15/2018 [...]
--- OUTSIDE RECORDS SUMMARY | 2024-06-19 08:48 | XMS_ITS | Encounter Summary ---
Author Organization [facility] Address [address] [place] [address] Care Team Providers Care Mash Filter Operator Name Role Phone Jaquan Conley MD Primary Care Provider + [phone] Encounter Details Date Type Department Care Team [...] 08/28/2024 11:00 AM EST [facility] [address], [address] [place] [address] Erica Ventura PA [address] [place] [address] documented as of this encounter Visit Diagnoses Not on filedocumented in this encounter Additional Health Concerns Assessment Noted Time A fall risk assessment has been complete d for the patient 06/20/2023 12:51 PM EST A Body Mass Index follow-up plan has been documented for the patient 05/23/2024 12:56 PM EST documented as of this encounter Care Teams Mash Filter Operator Relationship Specialty Start Date End Date Jaquan Conley MD [address] [place], [place] [phone] PCP - General 11/28/20 documented as of this encounter
--- OUTSIDE RECORDS SUMMARY | 2024-06-19 08:48 | XMS_ITS | Encounter Summary ---
Author Organization [facility] Address [address] [place] [address] Care Team Providers Care Sponge Clipper Name Role Phone Jaquan Conley MD Primary Care Provider + [phone] Reason for Visit * Reason Comments Initial Evaluation * Physical Therapy (Routine) - Closed Specialty Diagnoses / Procedures Referred By Contac t Referred To Contact Physical Therapy Diagnoses Flat back syndrome Low back pain, unspecified back pain laterality, unspecified chronicity, with sciatica presence unspecified Orthopedic aftercare Long Valles MD [address] [place] [address] Phone: tel: fax: Chad Rivera, PT [address] [place], [place] [email or web address] [address] Phone: tel: Referral ID Status Reason Start Date Expiration Date V isits Requested Visits Authorized [id number] Closed Specialty Services Required 03/14/2017 03/14/2018 50 50 Encounter Details Date Type Department Care Team (Late st Contact Info) Description 03/14/2017 4:30 PM EDT Treatment [facility] [address] [place] [phone] Chad Rivera, PT [address] [facility] [address] [place], [place] [id number] Acute bilateral low back pain with bilateral [...] as of this encounter Progress Notes * Chda Rivera, PT - 03/14/2017 4:30 PM EDT [...] so high. Severe diabetic. 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 Pain Current pain ratin At best [...] planes to improved stability of the core/trunk DETENTION GOALS: 6 weeks 1. Pt to demonstrate [...] interventions: cryotherapy, thermotherapy (hydrocollator packs) and electrical stimulation/Dominican stimulation Planned therapy interventions: abdominal trunk stabilization, manual therapy, spinal/joint mobilization, soft tissue mobilization, strengthening, stretching, therapeutic activities, functional ROM exercises, flexibility, body mechanics training, neuromuscular re-education and postural training Treatment plan discussed with: patient Plan details: Pt will be seen 1 x / week. Assess Pt response to PREP, posture and body mechanics. Manual Therapy: mins 77040; Therapeutic Exercise: mins 60933; Neuromuscular Hair: mins 63072; Therapeutic Activity: 10 nc mins 89533; Gait Training: mins 85734; Ultrasound: mins 26865; Electrical Stimulation: mins 95933 ( [id number]); Dry Needling mins self-pay Timed [...] return via fax to .. Thank you, [facility] Physical Therapy. documented in this encounter Plan of Treatment Not on file documented as of this encounter Visit Diagnoses Diagnosis Acute bilateral low back pain with bilateral sciatica- Primary documented in this encounter Care Teams Sponge Clipper Relationship Specialty Start Date End Date Jaquan Conley MD [address] [place] [address] PCP - General 01/25/17 09/21/17 documented as of this encounter
--- OUTSIDE RECORDS SUMMARY | 2024-06-19 08:48 | XMS_ITS | Encounter Summary ---
Author Organization [facility] Address [address] [place] [address] Care Team Providers Care Remedy Developer Name Role Phone Jaquan Conley MD Primary Care Provider + [phone] Encounter Details Date Type Department Care Team (Late st Contact Info) Description 01/27/2024 12:20 PM EDT Office Visit [facility] [address] [place] [address] Marilyn Valencia, LIQUEFIER [address] [facility] [address] [place] [address] Type 2 diabetes mellitus with other specified complication, with long-term current use of insulin ([facility]) (Primary Dx); Insulin pump titration; Hypoglycemia due [...] Patient confirms they are physically located in [place]? Yes If the patient is not physically located in [place], the provider has confirmed with [facility] thatthe provider is authorized to provide services in patient's stated location? Yes Provider Location: [facility] facility Audio and video or audio only? Audio and video Total visit time: 48 minutes HPI - last OV 06/20/23 with JOHN Arango - since then she has had a kidney transplant on 12/03/23 at [facility]. No longer taking prednisone due torash, [...] care. Electronically signed by: Marilyn Valencia APRN [facility] [address]. [address] [place]. [address] PHONE [phone] FAX: [phone] documented in this encounter Plan of Treatment Upcoming Encounters Date Type Department Care Team (Late st Contact Info) Description 08/28/2024 11:00 AM EST Office Visit [facility] Endocrinology [address] , [address] [place] [address] Erica Ventura PA [address] [facility] [address] [place] [phone] documented as of this encounter Visit Diagnoses Diagnosis Type 2 diabetes mellitus with other specified complication, with long-term current use of insulin ([facility])- Primary Insulin pump titration Fitting and adjustment [...] documented as of this encounter Care Teams Remedy Developer Relationship Specialty Start Date End Date Jaquan Conley MD [address] [place], [place] [phone] PCP - General 11/28/20 documented as of this encounter
--- OUTSIDE RECORDS SUMMARY | 2024-06-19 08:48 | XMS_ITS | Encounter Summary ---
Author Organization [facility] Address [address] [id number] Care Team Providers Care Instructor Weaving Name Role Phone Jaquan Conley MD Primary Care Provider + [phone] Reason for Visit * Reason Onset Date Comments PA for Dexcom G7 Adjunct Communications Faculty Member 06/20/2023 Pa Dexcom Sensor also 06/20/2023 Encounter Details Date Type Department Care Team (Late st Contact Info) Description 06/20/2023 Telephone [facility] Endocrinology [address] [place] [address] Nisha Yeboah [address] [facility] [address] [place] [address] PA for Dexcom G7 Adjunct Communications Faculty Member ; Pa Dexcom Sensor also Social History [...] denied. Sending to clinic for review via Piped Pocket Machine Operator upload. Medication: Dexcom G7 sensor/tank car mechanic ANDREA , [id number] Additional Info: Need clinical justification (legally blind, vision impairment where they can't seethe numbers, product has a feature that is not available on any preferred products) why the member can't use a preferred product (Dexcom G6, FreeStyle Nestor 3 * Telephone Encounter - Sebastien Doty - 06/22/2023 9:44 AM EST Prior authorization initiated by [employer]. Update will be provided when a determination has been received. Medication: Dexcom G7 tank car mechanic/sensors ANDREA Submission Method: CMM Case Number/CMM [place]: [id number], [id number] * Telephone Encounter - Nisha Yeboah [...] Description 08/28/2024 11:00 AM EST Office Visit [facility] Endocrinology [address], [address] [place] [address] Erica Ventura PA [address] [place] [address] documented as of this encounter Visit Diagnoses Not on filedocumented in this encounter Additional Health Concerns Assessment Noted Time A fall risk assessment has been complete d for the patient 06/20/2023 12:51 PM EST A Body Mass Index follow-up plan has been documented for the patient 06/20/2023 2:00 PM EST documented as of this encounter Care Teams Instructor Weaving Relationship Specialty Start Date End Date Jaquan Conley MD [address] [place] [address] PCP - General 11/28/20 documented as of this encounter
--- OUTSIDE RECORDS SUMMARY | 2024-06-19 08:48 | XMS_ITS | Encounter Summary ---
Author Organization [facility] Address [address] [place] [address] Care Team Providers Care Director Nursing Service Name Role Phone Jaquan Conley MD Primary Care Provider + [phone] Reason for Visit * (Routine) - Closed Specialty Diagnoses / Procedures Referred By Contac t Referred To Contact Radiology Diagnoses Acute bilateral thoracic back pain Procedures XR Spine Thoracic 3 View Jaquan Conley MD [address] [place] [address] Phone: tel: fax: Referral ID Status Reason Start Date Expiration Date Visits Re quested Visits Authorized [id number] Closed 01/25/2017 01/25/2018 1 1 Encounter Details Date Type Department Care Team (Latest Contact Info) Description 01/25/2017 6:15 PM EDT - 01/25/2017 11:59 PM EDT Hospital Encounter [facility] XRAY [address] [place] [address] Jaquan Conley MD [address] [place] [address] Discharge Disposition: Home or Self Care Social [...] on filedocumented in this encounter Care Teams Director Nursing Service Relationship Specialty Start Date End Date Jaquan Conley MD [address] [place] [address] PCP - General 01/25/17 09/21/17 documented as of this encounter
--- OUTSIDE RECORDS SUMMARY | 2024-06-19 08:48 | XMS_ITS | Encounter Summary ---
Author Organization [facility] Address [address] [place] [address] Care Team Providers Care Plisse Machine Operator Name Role Phone Jaquan Conley MD Primary Care Provider + [phone] Encounter Details Date Type Department Care Team (Late st Contact Info) Description 01/27/2024 Telephone [facility] End[facility]ology [address], [address] [place] [address] Marilyn Valencia L, SUPERVISOR [employer] [address] [facility] [address] [place] [address] Social History Tobacco Use Types [...] [facility] [address] [place] [address] Erica Ventura PA [address] [place] [address] documented as of this encounter Visit Diagnoses Not on filedocumented in this encounter Additional Health Concerns Assessment Noted Time A fall risk assessment has been complete d for the patient 06/20/2023 12:51 PM EST A Body Mass Index follow-up plan has been documented for the patient 01/27/2024 1:29 PM EDT documented as of this encounter Care Teams Plisse Machine Operator Relationship Specialty Start Date End Date Jaquan Conley MD [address] [place] [address] PCP - General 11/28/20 documented as of this encounter
--- OUTSIDE RECORDS SUMMARY | 2024-06-19 08:48 | XMS_ITS | Encounter Summary ---
Author Organization [facility] Address [address] [place] [address] Care Team Providers Care Fighting Vehicle Systems Maintainer Name Role Phone Jaquan Conley MD Primary Care Provider + [phone] Encounter Details Date Type Department Care Team (Late st Contact Info) Description 06/27/2023 Telephone [facility] [address] [facility], [address] [place] [address] Erica Ventura PA [address] [facility] [address] [place] [address] Social History Tobacco Use Types [...] optimal time of day to reach caller: [phone] Note: Please do not reply to this [...] Description 08/28/2024 11:00 AM EST Office Visit [facility] Endocrinology [address], [address] [place] [address] Erica Ventura PA [address] [facility] [address] [place] [address] documented as of this encounter Visit Diagnoses Not on filedocumented in this encounter Additional Health Concerns Assessment Noted Time A fall risk assessment has been complete d for the patient 06/20/2023 12:51 PM EST A Body Mass Index follow-up plan has been documented for the patient 06/20/2023 2:00 PM EST documented as of this encounter Care Teams Fighting Vehicle Systems Maintainer Relationship Specialty Start Date End Date Jaquan Conley MD [address] [place] [address] PCP - General 11/28/20 documented as of this encounter
--- OUTSIDE RECORDS SUMMARY | 2024-06-19 08:48 | XMS_ITS | Clinical Summary ---
Author Organization [facility] Address [address] [place] [address] Care Team Providers Care Beveling Machine Operator Name Role Phone Jaquan Conley MD Primary Care Provider + [phone] Allergies Active Allergy Reactions Criticality Noted Date [...] Description 05/23/2024 11:00 AM EST Office Visit [facility] Endocrinology [address], [address] [place] [address] Erica Ventura PA Type 2 diabetes mellitus with other specified complication, with long-term current use of insulin ([facility]) (Primary Dx); Renal transplant recipient 05/23/2024 Travel 04/03/2024 Telephone [facility] Endocrinology [address], [address] [place] [address] Marilyn Valencia, STRIP MACHINE OPERATOR from Last 3 Months Immunizations Name Administration [...] [facility] [address] [place] [address] Erica Ventura PA [address] [place] [address] Health Maintenance Due Date Last Done Comments [facility]-HIV Screening 1989 [facility]-Infant/Child/Adol SDOH Screenings 1989 [id number] Vaccine (#1) 1994 Diabetes: Dental Exam 1999 [...] complication, with long-term current use of insulin ([facility]) CYTO DATA CONVERSION Routine 10/29/2014 12:00 AM EDT from Last 3 Months or Most Recently Relevant to Health Maintenance Results * (ABNORMAL) POCT glycosylated hemoglobin (Hb A1C) (05/23/2024 11:03 AM EST) POCT Hemoglobin A1C 5.8 <5.7% Non-Diabe tic % [facility] Kit Lot Number [id number] [facility] [employer] LAB Kit Expiration Date 03/17/2026 [facility] Blood Venous blood specimen / Unknown 05/23/2024 11:03 AM EST Erica MENDEZ POINT OF CARE TEST EN TER/EDIT ORDERABLES Final Result [facility] [address] [place] [address] * Cytology (10/29/2014 12:00 AM EDT) 10/29/2014 10/31/2014 12: 33 PM EDT Narrative [facility] - 11/06/2014 11:15 AM EDT [facility] ?MR #: [id number] [facility] ?FR[address]IE AR[address] [place], [place] ??[id number] ?1990 (Age: 24) ?? FW ?Collect Date: 10/29/2014 00:00 ?Receipt Date: 10/31/2014 12:33 ?Page 1 DEPARTMENT OF PATHOLOGY AND ??LABORATORY MEDICINE CYTOPATHOLOGY REPORT ? Email: [email or web address] ?[phone] ? ATTENDING MD/Practitioner: ??John Celestin APRN ? Service: PAT ? Location: [facility] ? Reported: 11/06/2014 11:15 ? Collected: 10/29/2014 00:00 INTERPRETATION A. ??THIN PREP (CERVICAL/VAGINAL): ? NEGATIVE FOR INTRAEPITHELIAL LESION OR MALIGNANCY. ? SATISFACTORY FOR EVALUATION; ENDOCERVICAL/ TRANSFORMATION ZONE COMPONENT PRESENT. Slide scanned and imaged by [employer] ThinPrep Imaging System with manual review of [...] results is suggested (please call Microbiology at [phone] for results). CLINICAL INFORMATION: Menstrual History: Cyclic Date of Last Menstrual Period: ? 10/03/14 Other Clinical Conditions: If ASCUS and > 24 years of age, HPV/DNA testing requested. SPECIMEN DESCRIPTION: A: ??THIN PREP (CERVICAL/VAGINAL) ? THIN PREP PROCESS CELLULAR ENHANCEMENT ICD: ??F: A; RT IMAGE [id number] SNOMED CODES: A; [id number] In cases where a pathologist has signed out the report, the service has been rendered in part by a resident. The signing pathologist has performed and is responsible for the reported pathologic evaluation. us [facility] Provider LAB PATHOLOGY ORDERABLES Final Result [facility] from Last 3 Months or Most Recently Relevant to Health Maintenance Insurance [employer] Care Teams Beveling Machine Operator Relationship Specialty Start Date End Date Jaquan Conley MD [address] [place] [address] PCP - General 11/28/20
--- OUTSIDE RECORDS SUMMARY | 2024-06-19 08:48 | XMS_ITS | Encounter Summary ---
Author Organization [facility] Address [address] [place] [id number] Care Team Providers Care Financial Operations Clerk Name Role Phone Pedro Harper MD, Devi Primary Care Provider [phone] Reason for Referral * Consultation (Routine) - Closed Specialty Diagnoses / Procedures Referred By Contac t Referred To Contact Obstetrics and Gynecology Diagnoses Devi Vasquez MD [address] [facility] [address] [place] [address] Phone: tel: fax: Jaskaran Quintana MD [address] [facility] [address] [place] [address] Phone: tel: fax: Referral ID Status Reason Start Date Expiration Date V isits Requested Visits Authorized [id number] Closed Specialty Services Required 12/30/2015 06/27/2016 1 1 Reason for Visit * Reason Comments Establish Care moved from [place] Am[place] last period October. thinks she is Diabetes on insulin pump. 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 [address] [facility] [address] [place] [address] Devi Vsaquez MD [address] [facility] [address] [place] [address] Missed period (Primary Dx); ; Type 2 [...] tortilla. ? of a hamburger bun or Romanian muffin. ?? 4-6 crackers. ? cup unsweetened [...] foods that contain carbohydrates: ?? Rice. ? Four [place]. ? Milk. ? Strawberries. Step 2:??Calculate the [...] Reviewed: 05/31/2014 Elsevier Interactive Patient Education ??2016 [employer] documented in this encounter Progress Notes [...] weeks. Pt sugar was over 400 at [facility] recently. She did not put enough insulin in her insulin pump. Pt is a smoker. Pt has an appt with Dr Jaskaran Quintana on 01/05/16 who delivered her last child. Pt needs referral. Pt needs statement for [facility] Pt does not communicate with her parents [...] 11:06 AM EDT) Hemoglobin A1C 11.2 % [facility] Blood specimen (specimen) 12/30/2015 11:06 AM EDT us Devi Harper MD POINT OF CARE TEST ORDERABL ES Final Result [facility]
[address] [place] [address], * (ABNORMAL) POCT , urine (12/30/2015 10:58 AM EDT) HCG, Urine, QL Positive(A ) Negative [facility] Urine specimen (specimen) 12/30/2015 10:58 AM EDT us Devi Harper MD POINT OF CARE TEST ORDERABL ES Final Result [facility]
[address] [place] [address], documented in this encounter Visit Diagnoses Diagnosis Missed period- Primary Type 2 diabetes mellitus with hyperglycemia documented in this encounter Care Teams Financial Operations Clerk Relationship Specialty Start Date End Date Devi Vasquez MD [facility] [address] [place] [address] PCP - General Family Medicine 12/30/15 01/24/17 documented as of this encounter
--- OUTSIDE RECORDS SUMMARY | 2024-06-19 08:48 | XMS_ITS | Encounter Summary ---
Author Organization [facility] Address [address] [place] [address] Care Team Providers Care Information Director Name Role Phone Jaquan Conley MD Primary Care Provider + [phone] Encounter Details Date Type Department Care Team [...] 08/28/2024 11:00 AM EST [facility] [address], [address] [place] [address] Erica Ventura PA [address] [place] [address] documented as of this encounter Visit Diagnoses Not on filedocumented in this encounter Additional Health Concerns Assessment Noted Time A fall risk assessment has been complete d for the patient 06/20/2023 12:51 PM EST A Body Mass Index follow-up plan has been documented for the patient 01/27/2024 1:29 PM EDT documented as of this encounter Care Teams Information Director Relationship Specialty Start Date End Date Jaquan Conley MD [address] [place], [place] [id number] PCP - General 11/28/20 documented as of this encounter
--- OUTSIDE RECORDS SUMMARY | 2024-06-19 08:48 | XMS_ITS | Encounter Summary ---
Author Organization [facility] Address [address] [place] [address] Care Team Providers Care Video Manager Name Role Phone Jaquan Conley MD Primary Care Provider [phone] Reason for Visit * Reason Comments Flank Pain Encounter Details Date Type Department Care Team (Late st Contact Info) Description 05/10/2017 12:39 PM EDT - 05/10/2017 7:05 PM EDT Emergency [facility] [address] [place] [phone] Tatum James MD [address] [place] [address] Hyperglycemia (Primary Dx); Noncompliance with medication regimen; [...] be sent through Care Everywhere. * HYPERGLYCEMIA (GHANAIAN) * NONSPECIFIC CHEST PAIN (GHANAIAN) documented in this encounter Medications at Time [...] prior to discharge Shaunna Grant RN 05/10/17 5502 * Pearl Wakefield APRN - 05/10/2017 1:38 [...] to her primary care provider today at [facility] and they referred her here for [...] pain, unspecified type Pearl Wakefield APRN 05/10/17 179 Cosigned by Tatum James MD at 05/10/2017 5:55 PM EDT Associated attestation - Tatum James MD - 05/10/2017 5:55 PM EDT For this patient encounter, I reviewed the [facility] or PA documentation, treatment plan, and medical [...] - 130 mg/dL 05/10/2017 5:45 PM EDT [facility] Comment:Serial Number: [id number] Blood 05/10/2017 5:40 PM EDT 05/10/2017 5:45 PM EDT Tatum James MD POINT OF CARE TEST ORD ERABLES Final Result Performing Organization Address [facility] Co de Phone Number [facility]
[address] [place] [address], * Troponin (05/10/2017 4:39 PM EDT) Troponin I <0.012 0.000 - 0.034 ng/mL 05/10/2017 5:28 PM EDT [facility] Blood Venipuncture / Unknown 05/10/2017 4:39 PM EDT 05/10/2017 4:42 PM EDT Narrative [facility] - 05/10/2017 5:28 PM EDT Normal Patient Upper Reference Limit (URL) (99th Percentile)=0.03 ng/mL Non-AMI Illness Reference Limit=0.03-0.11 ng/mL AMI Confirmation=0.12 ng/mL and above Pearl Wakefield FLOORLEADER LAB BLOOD ORDERABLES Amy l Result Performing Organization Address City/[facility] Co de Phone Number [facility]
[address] [place] [address], * XR Chest 2 View (05/10/2017 1:58 [...] None Seen /HPF 05/10/2017 2:10 PM EDT [facility] WBC, UA 0-2(A) None Seen /HPF 05/10/2017 2:10 PM EDT [facility] Bacteria, UA Trace(A) None Seen /HPF 05/10/2017 2:10 PM EDT [facility] Squamous Epithelial Cells, UA 0-2 None Seen, 0-2 /HPF 05/10/2017 2:10 PM EDT [facility] Hyaline Casts, UA None Seen None Seen /LPF 05/10/2017 2:10 PM EDT [facility] Methodology Manual Light Microscopy 05/10/2017 2:10 PM EDT [facility] Urine Urine specimen collection, clean catch / Unknown Collection / Unknown 05/10/2017 1:49 PM EDT 05/10/2017 1:53 PM EDT Pearl Wakefield FLOORLEADER URINE ORDERABLES Final Re sult [facility]
[address] [place] [address], [place] [phone] * (ABNORMAL) CBC Auto Differential (05/10/2017 1:49 PM EDT) WBC 8.97 4.80 - 10.80 10*3/mm3 05/10/2017 1:57 PM EDT [facility] RBC 4.32 4.20 - 5.40 10*6/mm3 05/10/2017 1:57 PM EDT [facility] Hemoglobin 12.7 12.0 - 16.0 g/dL 05/10/2017 1:57 PM EDT [facility] Hematocrit 36.6(L) 37.0 - 47.0 % 05/10/2017 1:57 PM EDT [facility] MCV 84.7 81.0 - 99.0 fL 05/10/2017 1:57 PM EDT [facility] MCH 29.4 27.0 - 31.0 pg 05/10/2017 1:57 PM EDT [facility] MCHC 34.7 30.0 - 37.0 g/dL 05/10/2017 1:57 PM EDT [facility] RDW 11.4(L) 11.5 - 14.5 % 05/10/2017 1:57 PM EDT [facility] RDW-SD 35.2(L) 37.0 - 54.0 fl 05/10/2017 1:57 PM EDT [facility] MPV 13.5(H) 6.0 - 12.0 fL 05/10/2017 1:57 PM EDT [facility] Platelets 201 130 - 400 10*3/mm3 05/10/2017 1:57 PM EDT [facility] Neutrophil % 54.2 37.0 - 80.0 % 05/10/2017 1:57 PM EDT [facility] Lymphocyte % 37.5 10.0 - 50.0 % 05/10/2017 1:57 PM EDT [facility] Monocyte % 4.5 0.0 - 12.0 % 05/10/2017 1:57 PM EDT [facility] Eosinophil % 3.1 0.0 - 7.0 % 05/10/2017 1:57 PM EDT [facility] Basophil % 0.3 0.0 - 2.5 % 05/10/2017 1:57 PM EDT [facility] Immature Grans % 0.4 0.0 - 0.6 % 05/10/2017 1:57 PM EDT [facility] Neutrophils, Absolute 4.86 2.00 - 6.90 10*3/mm3 05/10/2017 1:57 PM EDT [facility] Lymphocytes, Absolute 3.36 0.60 - 3.40 10*3/mm3 05/10/2017 1:57 PM EDT [facility] Monocytes, Absolute 0.40 0.00 - 0.90 10*3/mm3 05/10/2017 1:57 PM EDT [facility] Eosinophils, Absolute 0.28 0.00 - 0.70 10*3/mm3 05/10/2017 1:57 PM EDT [facility] Basophils, Absolute 0.03 0.00 - 0.20 10*3/mm3 05/10/2017 1:57 PM EDT [facility] Immature Grans, Absolute 0.04 0.00 - 0.06 10*3/mm3 05/10/2017 1:57 PM EDT [facility] nRBC 0.0 0.0 - 0.0 /100 WBC 05/10/2017 1:57 PM EDT [facility] Blood Venipuncture / Unknown 05/10/2017 1:49 PM EDT 05/10/2017 1:53 PM EDT us Pearl Wakefield FLOORLEADER LAB BLOOD ORDERABLES Amy foreman Result [facility]
[address] [place] [address], [place] [phone] * Troponin (05/10/2017 1:49 PM EDT) Troponin I <0.012 0.000 - 0.034 ng/mL 05/10/2017 2:24 PM EDT [facility] Blood Venipuncture / Unknown 05/10/2017 1:49 PM EDT 05/10/2017 1:53 PM EDT [facility] - 05/10/2017 2:24 PM EDT Normal Patient Upper Reference Limit (URL) (99th Percentile)=0.03 ng/mL Non-AMI Illness Reference Limit=0.03-0.11 ng/mL AMI Confirmation=0.12 ng/mL and above Pearl Yanezhead FLOORLEADER LAB BLOOD ORDERABLES Amy l Result Performing Organization Address City/[facility]/ZIP Co de Phone Number [facility]
[address] [place] [address], [place] [phone] * D-dimer, Quantitative (05/10/2017 1:49 PM EDT) Pathologist [facility] D-Dimer, Quantitative 270 0 - 500 ng/mL (FEU) 05/10/2017 2:36 PM EDT [facility] Blood Venipuncture / Unknown 05/10/2017 1:49 PM EDT 05/10/2017 1:53 PM EDT Pearl Foreman Wakefield FLOORLEADER LAB BLOOD ORDERABLES Amy l Result [facility]
[address] [place] [address], [place] [phone] * (ABNORMAL) Urinalysis With / Culture If Indicated - Urine, Clean Catch (05/10/2017 1:49 PM EDT) Color, UA Yellow Yellow, Straw 05/10/2017 1:58 PM EDT [facility] Appearance, UA Clear Clear 05/10/2017 1:58 PM EDT [facility] pH, UA 5.5 5.0 - 8.0 05/10/2017 1:58 PM EDT [facility] Specific [place], UA 1.015 1.005 - 1.030 05/10/2017 1:58 PM EDT [facility] Glucose, UA 500 mg/dL (2+)(A) Negative 05/10/2017 1:58 PM EDT [facility] Ketones, UA Negative Negative 05/10/2017 1:58 PM EDT [facility] Bilirubin, UA Negative Negative 05/10/2017 1:58 PM EDT [facility] Blood, UA Small (1+)(A) Negative 05/10/2017 1:58 PM EDT [facility] Protein, UA >=300 mg/dL (3+)(A) Negative 05/10/2017 1:58 PM EDT [facility] Leuk Esterase, UA Negative Negative 05/10/2017 1:58 PM EDT [facility] Nitrite, UA Negative Negative 05/10/2017 1:58 PM EDT [facility] Urobilinogen, UA 0.2 E.U./dL 0.2 - 1.0 E.U./dL 05/10/2017 1:58 PM EDT [facility] Urine Urine specimen collection, clean catch / Unknown Collection / Unknown 05/10/2017 1:49 PM EDT 05/10/2017 1:53 PM EDT us Pearl Wakefield FLOORLEADER URINE ORDERABLES Final Re sult [facility]
[address] [place] [address], [place] [phone] * Lipase (05/10/2017 1:49 PM EDT) Lipase 108 23 - 300 U/L 05/10/2017 2:24 PM EDT [facility] Blood Venipuncture / Unknown 05/10/2017 1:49 PM EDT 05/10/2017 1:53 PM EDT us Pearl Wakefield FLOORLEADER LAB BLOOD ORDERABLES Amy kellen Result [facility]
[address] [place] [address], * (ABNORMAL) Comprehensive Metabolic Panel (05/10/2017 1:49 PM EDT) Glucose 518(HH) 74 - 98 mg/dL 05/10/2017 2:37 PM EDT [facility] BUN 22(H) 7 - 20 mg/dL 05/10/2017 2:37 PM EDT [facility] Creatinine 1.40(H) 0.60 - 1.30 mg/dL 05/10/2017 2:37 PM EDT [facility] Sodium 133(L) 137 - 145 mmol/L 05/10/2017 2:37 PM EDT [facility] Potassium 4.8 3.5 - 5.1 mmol/L 05/10/2017 2:37 PM EDT [facility] Chloride 103 98 - 107 mmol/L 05/10/2017 2:37 PM EDT [facility] CO2 17.0(L) 26.0 - 30.0 mmol/L 05/10/2017 2:37 PM EDT [facility] Calcium 9.3 8.4 - 10.2 mg/dL 05/10/2017 2:37 PM EDT [facility] Total Protein 6.9 6.3 - 8.2 g/dL 05/10/2017 2:37 PM EDT [facility] Albumin 3.80 3.50 - 5.00 g/dL 05/10/2017 2:37 PM EDT [facility] ALT (SGPT) 27 13 - 69 U/L 05/10/2017 2:37 PM EDT [facility] AST (SGOT) 13(L) 15 - 46 U/L 05/10/2017 2:37 PM EDT [facility] Alkaline Phosphatase 94 38 - 126 U/L 05/10/2017 2:37 PM EDT [facility] Total Bilirubin 0.3 0.2 - 1.3 mg/dL 05/10/2017 2:37 PM EDT [facility] eGFR Non Amer 45(L) >60 mL/min/1.7 3 05/10/2017 2:37 PM EDT [facility] Globulin 3.1 gm/dL 05/10/2017 2:37 PM EDT [facility] A/G Ratio 1.2 1.0 - 2.0 g/dL 05/10/2017 2:37 PM EDT [facility] BUN/Creatinine Ratio 15.7 7.1 - 23.5 05/10/2017 2:37 PM EDT [facility] Anion Gap 17.8 mmol/L 05/10/2017 2:37 PM EDT [facility] Blood Venipuncture / Unknown 05/10/2017 1:49 PM EDT 05/10/2017 1:53 PM EDT [facility] - 05/10/2017 2:37 PM EDT Abnormal estimated GFR should be followed by more specific studies to confirm end stage chronic renal disease. The equation used for calculation may not be accurate for patients less than 19 years old, greater than 70 years old, patients at extremes of weight, malnutrition, or with acute renal dysfunction. us Pearl Wakefield FLOORLEADER LAB BLOOD ORDERABLES Amy foreman Result [facility]
[address] [place] [id number], * (ABNORMAL) Blood Gas, Arterial With Co-Ox (05/10/2017 1:29 PM EDT) Site Arterial Line 05/10/2017 1:29 PM EDT [facility] Kamari's Test Positive 05/10/2017 1:29 PM EDT [facility] pH, Arterial 7.356 7.300 - 7.500 pH units 05/10/2017 1:29 PM EDT [facility] pCO2, Arterial 36.3 35.0 - 45.0 mm Hg 05/10/2017 1:29 PM EDT [facility] pO2, Arterial 28.4(LL) 75.0 - 100.0 mm Hg 05/10/2017 1:29 PM EDT [facility] HCO3, Arterial 20.3(L) 22.0 - 28.0 mmol/L 05/10/2017 1:29 PM EDT [facility] Base Excess, Arterial -5.2 mmol/L 05/10/2017 1:29 PM EDT [facility] O2 Saturation, Arterial 54.5 % 05/10/2017 1:29 PM EDT [facility] Hemoglobin, Blood Gas 13.0 12 - 18 g/dL 05/10/2017 1:29 PM EDT [facility] Oxyhemoglobin 52.6(L) 94 - 99 % 05/10/2017 1:29 PM EDT [facility] Methemoglobin 0.80 % 05/10/2017 1:29 PM EDT [facility] Carboxyhemoglobin 2.6 % 017 1:29 PM EDT [facility] Modality Room Air 05/10/2017 1:29 PM EDT [facility] FIO2 21 % 05/10/2017 1:29 PM EDT [facility] Arterial Blood 05/10/2017 1: 29 PM EDT 05/10/2017 1:27 PM EDT Tatum James MD LAB BLOOD ORDERABLES F inal Result [facility]
[address] [place], [place] [address] documented in this encounter [...] [id number] documented in this encounter Care Teams Video Manager Relationship Specialty Start Date End Date Jaquan Conley MD [address] [place] [address] PCP - General 01/25/17 09/21/17 documented as of this encounter
--- OUTSIDE RECORDS SUMMARY | 2024-06-19 08:48 | XMS_ITS | Encounter Summary ---
Author Organization [facility] Address [address] [place] [address] Care Team Providers Care Airline Radio Operator Name Role Phone Jaquan Conley MD Primary Care Provider + [phone] Encounter Details Date Type Department Care Team (Late st Contact Info) Description 04/03/2024 Telephone [facility] End[facility]ology [address], [address] [place] [address] Marilyn Valencia, FOREIGN SERVICE TEACHER [address] [facility] [address] [place] [address] Social History Tobacco Use Types [...] Description 08/28/2024 11:00 AM EST Office Visit [facility] Endocrinology [address], [address] [place] [address] Erica Ventura PA [address] [place] [address] documented as of this encounter Visit Diagnoses Diagnosis Type 2 diabetes mellitus with other specified complication, with long-term current use of insulin ([facility]) documented in this encounter Additional Health Concerns Assessment Noted Time A fall risk assessment has been complete d for the patient 06/20/2023 12:51 PM EST A Body Mass Index follow-up plan has been documented for the patient 01/27/2024 1:29 PM EDT documented as of this encounter Care Teams Airline Radio Operator Relationship Specialty Start Date End Date Jaquan Conley MD [address] [place] [address] PCP - General 11/28/20 documented as of this encounter
--- OUTSIDE RECORDS SUMMARY | 2024-06-19 08:48 | XMS_ITS | Encounter Summary ---
Author Organization [facility] Address [address] [place] [address] Care Team Providers Care Business Services Clerk Name Role Phone Jaquan Conley MD Primary Care Provider + [phone] Reason for Visit * Reason Comments Type 1 diabetes mellitus with other spec ified complication Encounter Details Date Type Department Care Team (Late st Contact Info) Description 05/23/2024 11:00 AM EST [facility] [address] [facility], [address] [place] [address] Erica Ventura PA [address] [facility] [address] [place] [address] Type 2 diabetes mellitus with other specified complication, with long-term current use of insulin ([facility]) (Primary Dx); Renal transplant recipient Social [...] education team with any questions or concerns [phone] * Progress Notes - Erica Ventura PA [...] a single kidney transplant on 12/02 at [facility], prednisone was stopped due to rash, [...] and due to elevated C-peptide, now on [facility] Medicaid. -Patient also endorses discussing pancreas [...] of care. Electronically signed by: ANDREA Paul [facility] [address] [place] [address]. [address] [place]. [address] PHONE [phone] FAX: [phone] documented in this encounter Plan of Treatment Upcoming Encounters Date Type Department Care Team (Late st Contact Info) Description 08/28/2024 11:00 AM EST Office Visit [facility] Endocrinology [address] [place], [place] [address] [place] [address] Erica Ventura PA [address] [facility] [address] [place] [address] documented as of this encounter Procedures Procedure Name Priority Date/Time Associated Diagnosis Comments POCT GLYCOSYLATED HEMOGLOBIN (HGB A1C) Routine 05/23/2024 11:03 AM EST Type 2 diabetes mellitus with other specified complication, with long-term current use of insulin ([facility]) documented in this encounter Results * (ABNORMAL) POCT glycosylated hemoglobin (Hb A1C) (05/23/2024 11:03 AM EST) POCT Hemoglobin A1C 5.8 <5.7% Non-Diabe tic % [email or web address] Kit Lot Number [id number] [facility] [employer] [facility] Kit Expiration Date 03/17/2026 [email or web address] Blood Venous blood specimen / Unknown 05/23/2024 11:03 AM EST us Erica MENDEZ POINT OF CARE TEST EN TER/EDIT ORDERABLES Final Result [facility] [address] [place] [address] documented in this encounter Visit Diagnoses Diagnosis Type 2 diabetes mellitus with other specified complication, with long-term current use of insulin ([facility])- Primary Renal transplant recipient documented in this encounter Additional Health Concerns Assessment Noted Time A fall risk assessment has been complete d for the patient 06/20/2023 12:51 PM EST A Body Mass Index follow-up plan has been documented for the patient 05/23/2024 12:56 PM EST documented as of this encounter Care Teams Business Services Clerk Relationship Specialty Start Date End Date Jaquan Conley MD [address] [place] [address] PCP - General 11/28/20 documented as of this encounter
--- OUTSIDE RECORDS SUMMARY | 2024-06-19 08:48 | XMS_ITS | Encounter Summary ---
Author Organization [facility] [place] Address [address] [place] [address] Care Team Providers Care Relay Assembler Name Role Phone Lauren Slade ANJU Primary Care Provider +[phone] Reason for Visit * Reason Comments Hyperglycemia Encounter Details Date Type Department Care Team (Late st Contact Info) Description 09/22/2017 1:43 PM EST - 09/22/2017 5:43 PM EST Emergency [facility] [address] [place] [phone] Krissy Bowman MD Hyperglycemia (Primary Dx); [...] be sent through Care Everywhere. * HYPERGLYCEMIA (INDIAN) * HYPERTENSION (INDIAN) * TYPE 2 DIABETES MELLITUS SELF CARE ADULT (INDIAN) documented in this encounter Medications at Time [...] had some medications adjusted recently by her spanish moss picker but states there wassome miscommunication and so [...] to patient's outpatient labs recently at the [facility]. He was able to obtain old [...] 09/22/2017 2:13 PM Krissy Bowman MD 09/22/17 8399 documented in this encounter Plan of Treatment [...] - 130 mg/dL 09/22/2017 5:15 PM EST [facility] Comment:Serial Number: [id number] Blood 09/22/2017 5:10 PM EST 09/22/2017 5:15 PM EST Krissy Bowman MD POINT OF CARE TEST ORDE TORITO Final Result Performing Organization Address City/[facility]/ZIP Co de Phone Number [facility]
[address] [place] [address], * (ABNORMAL) POC Glucose Once (09/22/2017 4:15 PM EST) Glucose 404(H) 70 - 130 mg/dL 09/22/2017 5:15 PM EST [facility] Comment:Serial Number: [id number] Blood 09/22/2017 4:15 PM EST 09/22/2017 5:15 PM EST Krissy Bowman MD POINT OF CARE TEST ORDE TORITO Final Result Performing Organization Address [facility] Co de Phone Number [facility]
[address] [place] [address], * (ABNORMAL) POC Glucose Once (09/22/2017 3:13 PM EST) Glucose 532(HH) 70 - 130 mg/dL 09/22/2017 3:20 PM EST [facility] Comment:Serial Number: [id number] Blood 09/22/2017 3:13 PM EST 09/22/2017 3:20 PM EST Krissy Bowman MD POINT OF CARE TEST ORDBrien UGARTE Final Result Performing Organization Address City/[facility]/ZIP Co de Phone Number [facility]
[address] [place] [id number], * (ABNORMAL) CBC Auto Differential (09/22/2017 2:11 PM EST) [facility] WBC 9.75 4.80 - 10.80 10*3/mm3 09/22/2017 2:43 PM [facility] RBC 4.27 4.20 - 5.40 10*6/mm3 09/22/2017 2:43 PM [facility] Hemoglobin 12.5 12.0 - 16.0 g/dL 09/22/2017 2:43 PM [facility] Hematocrit 37.3 37.0 - 47.0 % 09/22/2017 2:43 PM [facility] MCV 87.4 81.0 - 99.0 fL 09/22/2017 2:43 PM [facility] MCH 29.3 27.0 - 31.0 pg 09/22/2017 2:43 PM [facility] MCHC 33.5 30.0 - 37.0 g/dL 09/22/2017 2:43 PM [facility] RDW 12.2 11.5 - 14.5 % 09/22/2017 2:43 PM [facility] RDW-SD 39.2 37.0 - 54.0 fl 09/22/2017 2:43 PM [facility] MPV 12.8(H) 6.0 - 12.0 fL 09/22/2017 2:43 PM [facility] Platelets 248 130 - 400 10*3/mm3 09/22/2017 2:43 PM [facility] Neutrophil % 65.1 37.0 - 80.0 % 09/22/2017 2:43 PM [facility] Lymphocyte % 26.9 10.0 - 50.0 % 09/22/2017 2:43 PM [facility] Monocyte % 4.1 0.0 - 12.0 % 09/22/2017 2:43 PM [facility] Eosinophil % 2.4 0.0 - 7.0 % 09/22/2017 2:43 PM [facility] Basophil % 0.5 0.0 - 2.5 % 09/22/2017 2:43 PM EST [facility] Immature Grans % 1.0(H) 0.0 - 0.6 % 09/22/2017 2:43 PM EST [facility] Neutrophils, Absolute 6.35 2.00 - 6.90 10*3/mm3 09/22/2017 2:43 PM EST [facility] Lymphocytes, Absolute 2.62 0.60 - 3.40 10*3/mm3 09/22/2017 2:43 PM EST [facility] Monocytes, Absolute 0.40 0.00 - 0.90 10*3/mm3 09/22/2017 2:43 PM EST [facility] Eosinophils, Absolute 0.23 0.00 - 0.70 10*3/mm3 09/22/2017 2:43 PM [facility] Basophils, Absolute 0.05 0.00 - 0.20 10*3/mm3 09/22/2017 2:43 PM EST [facility] Immature Grans, Absolute 0.10(H) 0.00 - 0.06 10*3/mm3 09/22/2017 2:43 PM [facility] nRBC 0.0 0.0 - 0.0 /100 WBC 09/22/2017 2:43 PM [facility] Blood Venipuncture / Unknown 09/22/2017 2:11 PM EST 09/22/2017 2:18 PM EST Krissy Bowman MD LAB BLOOD ORDERABLES Fi nal Result [facility]
[address] [place] [address], [place] [phone] * (ABNORMAL) Comprehensive Metabolic Panel (09/22/2017 2:11 PM EST) Glucose 679(HH) 74 - 98 mg/dL 09/22/2017 2:55 PM EST [facility] Comment:Glucose >180, Hemogl obin A1C recommended. BUN 27(H) 7 - 20 mg/dL 09/22/2017 2:55 PM EST [facility] Creatinine 1.70(H) 0.60 - 1.30 mg/dL 09/22/2017 2:55 PM [facility] Sodium 132(L) 137 - 145 mmol/L 09/22/2017 2:55 PM [facility] Potassium 5.0 3.5 - 5.1 mmol/L 09/22/2017 2:55 PM [facility] Chloride 97(L) 98 - 107 mmol/L 09/22/2017 2:55 PM [facility] CO2 20.0(L) 26.0 - 30.0 mmol/L 09/22/2017 2:55 PM [facility] Calcium 8.9 8.4 - 10.2 mg/dL 09/22/2017 2:55 PM [facility] Total Protein 7.1 6.3 - 8.2 g/dL 09/22/2017 2:55 PM [facility] Albumin 3.80 3.50 - 5.00 g/dL 09/22/2017 2:55 PM [facility] ALT (SGPT) 27 13 - 69 U/L 09/22/2017 2:55 PM [facility] AST (SGOT) 11(L) 15 - 46 U/L 09/22/2017 2:55 PM [facility] Alkaline Phosphatase 129(H) 38 - 126 U/L 09/22/2017 2:55 PM [facility] Total Bilirubin 0.4 0.2 - 1.3 mg/dL 09/22/2017 2:55 PM [facility] eGFR Non Amer 36(L) >60 mL/min/1.7 3 09/22/2017 2:55 PM [facility] Globulin 3.3 gm/dL 09/22/2017 2:55 PM [facility] A/G Ratio 1.2 1.0 - 2.0 g/dL 09/22/2017 2:55 PM [facility] BUN/Creatinine Ratio 15.9 7.1 - 23.5 09/22/2017 2:55 PM [facility] Anion Gap 20.0 mmol/L 09/22/2017 2:55 PM EST [facility] Blood Venipuncture / Unknown 09/22/2017 2:11 PM EST 09/22/2017 2:18 PM EST us Krissy Bowman MD LAB BLOOD ORDERABLES Fi nal Result Performing Organization Address City/[facility]/ZIP Co de Phone Number [facility]
[address] [place] [address], * Green Top (No Gel) (09/22/2017 2:11 PM EST) Extra Tube Hold for add-ons. 09/22/2017 3:16 PM EST [facility] Comment:Auto resulted. Blood Venipuncture / Unknown 09/22/2017 2:11 PM EST 09/22/2017 2:18 PM EST Krissy Bowman MD LAB BLOOD ORDER ONLY Fi nal Result Performing Organization Address [facility] Co de Phone Number [facility]
[address] [place] [address], [place] [phone] * Gold Top - SST (09/22/2017 2:11 PM EST) Extra Tube Hold for add-ons. 09/22/2017 3:16 PM EST [facility] Comment:Auto resulted. Blood Venipuncture / Unknown 09/22/2017 2:11 PM EST 09/22/2017 2:18 PM EST Krissy Bowman MD LAB BLOOD ORDER ONLY Fi nal Result Performing Organization Address City/[facility] Co de Phone Number [facility]
[address] [place] [address], [place] [phone] * Lavender Top (09/22/2017 2:11 PM EST) Extra Tube hold for add-on 09/22/2017 3:16 PM EST [facility] Comment:Auto resulted Blood Venipuncture / Unknown 09/22/2017 2:11 PM EST 09/22/2017 2:18 PM EST us Krissy Bowmna MD LAB BLOOD ORDER ONLY Fi nal Result Performing Organization Address [facility] Co de Phone Number [facility]
[address] [place] [address], * Light Blue Top (09/22/2017 2:11 PM EST) Extra Tube hold for add-on 09/22/2017 3:16 PM EST [facility] Comment:Auto resulted Blood Venipuncture / Unknown 09/22/2017 2:11 PM EST 09/22/2017 2:18 PM EST us Krissy Bowman MD LAB BLOOD ORDER ONLY Fi nal Result Performing Organization Address [facility] Co de Phone Number [facility]
[address] [place] [address], [place] [phone] * Urine Culture - Urine, Urine, Clean Catch (09/22/2017 2:04 PM EST) Pathologist [facility] Urine Culture No growth KIRA 09/24/2017 6:14 AM EST [facility] Urine Urine specimen collection, clean catch / Unknown Collection / Unknown 09/22/2017 2:04 PM EST 09/22/2017 2:07 PM EST us Krissy Bowman MD MICROBIOLOGY - GENERAL ORDERABLES Final Result Performing Organization Address [facility] de Phone Number [facility]
[address] [place] [address], [place] [phone] * (ABNORMAL) Urinalysis, Microscopic Only - Urine, Clean Catch (09/22/2017 2:04 PM EST) RBC, UA 0-2(A) None Seen /HPF 09/22/2017 2:43 PM [facility] WBC, UA 0-2(A) None Seen /HPF 09/22/2017 2:43 PM [facility] Bacteria, UA Trace(A) None Seen /HPF 09/22/2017 2:43 PM EST [facility] Squamous Epithelial Cells, UA 3-6(A) None Seen, 0-2 /HPF 09/22/2017 2:43 PM EST [facility] Yeast, UA Small/1+ Budding Yeast None Seen /HPF 09/22/2017 2:43 PM [facility] Hyaline Casts, UA None Seen None Seen /LPF 09/22/2017 2:43 PM [facility] Methodology Manual Light Microscopy 09/22/2017 2:43 PM [facility] Urine Urine specimen collection, clean catch / Unknown Collection / Unknown 09/22/2017 2:04 PM EST 09/22/2017 2:07 PM EST [facility] Mickey Bowman MD URINE ORDERABLES Final Result [facility]
[address] [place] [address], * (ABNORMAL) Urinalysis With / Culture If Indicated - Urine, Clean Catch (09/22/2017 2:04 PM EST) Color, UA Yellow Yellow, Straw 09/22/2017 2:43 PM [facility] Appearance, UA Clear Clear 09/22/2017 2:43 PM [facility] pH, UA 6.0 5.0 - 8.0 09/22/2017 2:43 PM [facility] Specific [place], UA 1.020 1.005 - 1.030 09/22/2017 2:43 PM [facility] Glucose, UA 500 mg/dL (2+)(A) Negative 09/22/2017 2:43 PM [facility] Ketones, UA Negative Negative 09/22/2017 2:43 PM [facility] Bilirubin, UA Negative Negative 09/22/2017 2:43 PM EST [facility] Blood, UA Trace(A) Negative 09/22/2017 2:43 PM EST [facility] Protein, UA >=300 mg/dL (3+)(A) Negative 09/22/2017 2:43 PM EST [facility] Leuk Esterase, UA Negative Negative 09/22/2017 2:43 PM EST [facility] Nitrite, UA Negative Negative 09/22/2017 2:43 PM EST [facility] Urobilinogen, UA 0.2 E.U./dL 0.2 - 1.0 E.U./dL 09/22/2017 2:43 PM EST [facility] Urine Urine specimen collection, clean catch / Unknown Collection / Unknown 09/22/2017 2:04 PM EST 09/22/2017 2:07 PM EST Krissy Bowman MD URINE ORDERABLES Final Result Performing Organization Address City/[facility]/ZIP Co de Phone Number [facility]
[address] [place] [address], [place] [phone] * (ABNORMAL) POC Glucose Once (09/22/2017 2:03 PM EST) Glucose >599(HH) 70 - 130 mg/dL 09/22/2017 2:10 PM EST [facility] Comment:Serial Number: [id number] Blood 09/22/2017 2:03 PM EST 09/22/2017 2:10 PM EST Krissy Bowman MD POINT OF CARE TEST ORDBrien UGARTE Final Result Performing Organization Address City/[facility] Co de Phone Number [facility]
[address] [place] [address], [place] [phone] documented in this encounter Visit Diagnoses Diagnosis [...] 1411 documented in this encounter Care Teams Relay Assembler Relationship Specialty Start Date End Date Lauren Slade APRN [address], [place] [address] [place] [address] PCP - General Family Medicine 09/22/17 02/05/18 documented as of this encounter
--- OUTSIDE RECORDS SUMMARY | 2024-06-19 08:48 | XMS_ITS | Encounter Summary ---
Author Organization [facility] Address [address] [place] [address] Care Team Providers Care Auto Painter Name Role Phone Jaquan Conley MD Primary Care Provider + [phone] Encounter Details Date Type Department Care Team [...] 08/28/2024 11:00 AM EST [facility] [address], [address] [place] [address] Erica Ventura PA [address] [place] [address] documented as of this encounter Visit Diagnoses Not on filedocumented in this encounter Additional Health Concerns Assessment Noted Time A fall risk assessment has been complete d for the patient 06/20/2023 12:51 PM EST A Body Mass Index follow-up plan has been documented for the patient 06/20/2023 2:00 PM EST documented as of this encounter Care Teams Auto Painter Relationship Specialty Start Date End Date Jaquan Conley MD [address] [place], [place] [phone] PCP - General 11/28/20 documented as of this encounter
--- OUTSIDE RECORDS SUMMARY | 2024-06-19 08:48 | XMS_ITS | Encounter Summary ---
[facility] Address [address] [place] [id number] Care Team Providers Care Event Crew Technician Name Role Phone Jaquan Conley MD Primary Care Provider [phone] Reason for Visit * Reason Comments Hyperglycemia Encounter Details Date Type Department Care Team (Late st Contact Info) Description 04/01/2017 1:27 AM EDT - 04/01/2017 5:13 AM EDT Emergency [facility] [address] [place] [address] [phone] Mickey Cerda MD [address] [place] [address] Hyperglycemia (Primary Dx) Discharge Disposition: [...] be sent through Care Everywhere. * HYPERGLYCEMIA, [id number] (UGANDAN) documented in this encounter Medications at Time [...] - 130 mg/dL 04/01/2017 4:20 AM EDT [facility] Comment:Serial Number: [id number] Blood 04/01/2017 4:15 AM EDT 04/01/2017 4:20 AM EDT Mickey Cerda MD POINT OF CARE TEST ORDERABL ES Final Result [facility]
[address] [place] [address], * (ABNORMAL) POC Glucose Fingerstick (04/01/2017 2:55 AM EDT) Glucose 434(H) 70 - 130 mg/dL 04/01/2017 3:00 AM EDT [facility] Comment:Serial Number: [id number] Blood 04/01/2017 2:55 AM EDT 04/01/2017 3:00 AM EDT Mickey Cerda MD POINT OF CARE TEST ORDERABL ES Final Result [facility]
[address] [place] [address], * (ABNORMAL) Urinalysis, Microscopic Only (04/01/2017 2:25 AM EDT) RBC, UA 0-2(A) None Seen /HPF 04/01/2017 2:47 AM EDT [facility] WBC, UA None Seen None Seen /HPF 04/01/2017 2:47 AM EDT [facility] Bacteria, UA Trace(A) None Seen /HPF 04/01/2017 2:47 AM EDT [facility] Squamous Epithelial Cells, UA 3-6(A) None Seen, 0-2 /HPF 04/01/2017 2:47 AM EDT [facility] Hyaline Casts, UA None Seen None Seen /LPF 04/01/2017 2:47 AM EDT [facility] Methodology Manual Light Microscopy 04/01/2017 2:47 AM EDT [facility] Urine Urine specimen collection, clean catch / Unknown Collection / Unknown 04/01/2017 2:25 AM EDT 04/01/2017 2:28 AM EDT Narrative [facility] - 04/01/2017 2:47 AM EDT Rare budding yeast seen us Mickey Cerda MD URINE ORDERABLES Final Resu lt [facility]
[address] [place] [address], [place] [phone] * (ABNORMAL) Urinalysis With / Culture If Indicated (04/01/2017 2:25 AM EDT) Color, UA Yellow Yellow, Straw 04/01/2017 2:40 AM EDT [facility] Appearance, UA Clear Clear 04/01/2017 2:40 AM T [facility] pH, UA 6.0 5.0 - 8.0 04/01/2017 2:40 AM T [facility] Specific [place], UA 1.020 1.005 - 1.030 04/01/2017 2:40 AM EDT [facility] Glucose, UA 500 mg/dL (2+)(A) Negative 04/01/2017 2:40 AM EDT [facility] Ketones, UA Negative Negative 04/01/2017 2:40 AM EDT [facility] Bilirubin, UA Negative Negative 04/01/2017 2:40 AM EDT [facility] Blood, UA Trace(A) Negative 04/01/2017 2:40 AM EDT [facility] Protein, UA >=300 mg/dL (3+)(A) Negative 04/01/2017 2:40 AM EDT [facility] Leuk Esterase, UA Negative Negative 04/01/2017 2:40 AM EDT [facility] Nitrite, UA Negative Negative 04/01/2017 2:40 AM EDT [facility] Urobilinogen, UA 0.2 E.U./dL 0.2 - 1.0 E.U./dL 04/01/2017 2:40 AM EDT [facility] Urine Urine specimen collection, clean catch / Unknown Collection / Unknown 04/01/2017 2:25 AM EDT 04/01/2017 2:28 AM EDT us Mickey Cerda MD URINE ORDERABLES Final Resu lt Performing Organization Address City/[facility]/ZIP Co de Phone Number [facility]
[address] [place] [address], [place] [phone] * hCG, Serum, Qualitative (04/01/2017 1:26 AM EDT) HCG Qualitative Negative Negative 7 2:09 AM EDT [facility] Blood Venipuncture / Unknown 04/01/2017 1:26 AM EDT 04/01/2017 1:31 AM EDT us Mickey Cerda MD LAB BLOOD ORDERABLES Final Result Performing Organization Address City/[facility]/ZIP Co de Phone Number [facility]
[address] [place] [address], [place] [phone] * (ABNORMAL) CBC Auto Differential (04/01/2017 1:25 AM EDT) WBC 8.79 4.80 - 10.80 10*3/mm3 04/01/2017 1:37 AM EDT [facility] RBC 4.26 4.20 - 5.40 10*6/mm3 04/01/2017 1:37 AM EDT [facility] Hemoglobin 12.7 12.0 - 16.0 g/dL 04/01/2017 1:37 AM [facility] Hematocrit 37.3 37.0 - 47.0 % 04/01/2017 1:37 AM [facility] MCV 87.6 81.0 - 99.0 fL 04/01/2017 1:37 AM [facility] MCH 29.8 27.0 - 31.0 pg 04/01/2017 1:37 AM [facility] MCHC 34.0 30.0 - 37.0 g/dL 04/01/2017 1:37 AM [facility] RDW 11.9 11.5 - 14.5 % 04/01/2017 1:37 AM [facility] RDW-SD 38.1 37.0 - 54.0 fl 04/01/2017 1:37 AM [facility] MPV 13.9(H) 6.0 - 12.0 fL 04/01/2017 1:37 AM [facility] Platelets 174 130 - 400 10*3/mm3 04/01/2017 1:37 AM [facility] Neutrophil % 54.0 37.0 - 80.0 % 04/01/2017 1:37 AM [facility] Lymphocyte % 36.4 10.0 - 50.0 % 04/01/2017 1:37 AM [facility] Monocyte % 6.1 0.0 - 12.0 % 04/01/2017 1:37 AM [facility] Eosinophil % 2.5 0.0 - 7.0 % 04/01/2017 1:37 AM [facility] Basophil % 0.5 0.0 - 2.5 % 04/01/2017 1:37 AM [facility] Immature Grans % 0.5 0.0 - 0.6 % 04/01/2017 1:37 AM [facility] Neutrophils, Absolute 4.75 2.00 - 6.90 10*3/mm3 04/01/2017 1:37 AM [facility] Lymphocytes, Absolute 3.20 0.60 - 3.40 10*3/mm3 04/01/2017 1:37 AM EDT [facility] Monocytes, Absolute 0.54 0.00 - 0.90 10*3/mm3 04/01/2017 1:37 AM EDT [facility] Eosinophils, Absolute 0.22 0.00 - 0.70 10*3/mm3 04/01/2017 1:37 AM EDT [facility] Basophils, Absolute 0.04 0.00 - 0.20 10*3/mm3 04/01/2017 1:37 AM EDT [facility] Immature Grans, Absolute 0.04 0.00 - 0.06 10*3/mm3 04/01/2017 1:37 AM EDT [facility] nRBC 0.0 0.0 - 0.0 /100 WBC 04/01/2017 1:37 AM EDT [facility] Blood Venipuncture / Unknown 04/01/2017 1:25 AM EDT 04/01/2017 1:31 AM EDT Mickey Cerda MD LAB BLOOD ORDERABLES Final Result [facility]
[address] [place] [address], * (ABNORMAL) Comprehensive Metabolic Panel (04/01/2017 1:25 AM EDT) Glucose 499(HH) 74 - 98 mg/dL 04/01/2017 1:57 AM EDT [facility] Comment:Glucose >180, Hemogl obin A1C recommended. BUN 13 7 - 20 mg/dL 04/01/2017 1:57 AM T [facility] Comment:Specimen hemolyzed. Results may be affected. Creatinine 1.40(H) 0.60 - 1.30 mg/dL 04/01/2017 1:57 AM EDT [facility] Sodium 131(L) 137 - 145 mmol/L 04/01/2017 1:57 AM EDT [facility] Potassium 4.4 3.5 - 5.1 mmol/L 04/01/2017 1:57 AM [facility] Comment:Specimen hemolyzed. Results may be affected. Chloride 100 98 - 107 mmol/L 04/01/2017 1:57 AM [facility] CO2 22.0(L) 26.0 - 30.0 mmol/L 04/01/2017 1:57 AM [facility] Calcium 9.0 8.4 - 10.2 mg/dL 04/01/2017 1:57 AM [facility] Total Protein 6.9 6.3 - 8.2 g/dL 04/01/2017 1:57 AM [facility] Albumin 3.90 3.50 - 5.00 g/dL 04/01/2017 1:57 AM [facility] ALT (SGPT) 29 13 - 69 U/L 04/01/2017 1:57 AM [facility] Comment:Specimen hemolyzed. Results may be affected. AST (SGOT) 19 15 - 46 U/L 04/01/2017 1:57 AM [facility] Comment:Specimen hemolyzed. Results may be affected. Alkaline Phosphatase 77 38 - 126 U/L 04/01/2017 1:57 AM [facility] Comment:Specimen hemolyzed. Results may be affected. Total Bilirubin 0.5 0.2 - 1.3 mg/dL 04/01/2017 1:57 AM [facility] eGFR Non Amer 45(L) >60 mL/min/1.7 3 04/01/2017 1:57 AM [facility] Globulin 3.0 gm/dL 04/01/2017 1:57 AM [facility] A/G Ratio 1.3 1.0 - 2.0 g/dL 04/01/2017 1:57 AM [facility] BUN/Creatinine Ratio 9.3 7.1 - 23.5 04/01/2017 1:57 AM [facility] Anion Gap 13.4 mmol/L 04/01/2017 1:57 AM [facility] Blood Venipuncture / Unknown 04/01/2017 1:25 AM EDT 04/01/2017 1:31 AM EDT Narrative [facility] - 04/01/2017 1:57 AM EDT [...] ORDERABLES Final Result Performing Organization Address City/[facility] Co de Phone Number [facility]
[address] [place] [address], * (ABNORMAL) POC Glucose Fingerstick (04/01/2017 1:20 AM EDT) Glucose 513(HH) 70 - 130 mg/dL 04/01/2017 1:25 AM EDT [facility] Comment:Serial Number: [id number]: [id number] Blood 04/01/2017 1:20 AM EDT 04/01/2017 1:25 AM EDT No Known Provider POINT OF CARE TEST ORDERABLES Final Result Performing Organization Address [facility] Co de Phone Number [facility]
[address] [place] [address], [place] [phone] documented in this encounter Visit Diagnoses Diagnosis [...] RN) documented in this encounter Care Teams Event Crew Technician Relationship Specialty Start Date End Date Jaquan Conley MD [address] [place] [id number] PCP - General 01/25/17 09/21/17 documented as of this encounter
--- OUTSIDE RECORDS SUMMARY | 2024-06-19 08:48 | XMS_ITS | Encounter Summary ---
[facility] Address [address] [place] [address] Care Team Providers Care Golf Teacher Name Role Phone Lauren Slade ANJU Primary Care Provider [phone] Reason for Visit * Reason Comments Hyperglycemia Encounter Details Date Type Department Care Team (Late st Contact Info) Description 01/14/2018 7:58 PM EDT - 01/14/2018 10:20 PM EDT Emergency [facility] [address] [place] [phone] Dominik Rizo MD [address] [place] [address] Type 2 diabetes mellitus with hyperglycemia, with [...] Care Everywhere. * Blood Glucose Monitoring Adult (Serbian) documented in this encounter Medications at Time [...] this encounter ED Notes * Stormy Vyas, ETHANOL QUALITY LEADER - 01/14/2018 10:20 PM EDT Subjective History [...] hyperglycemia, with long-term current use of insulin ([facility]) Essential hypertension Stormy Vyas APRN 01/16/18 2221 Cosigned by Dominik Rizo MD at 01/17/2018 12:33 AM EDT Associated attestation - Dominik Rizo MD - 01/17/2018 12:33 AM EDT For this patient encounter, I reviewed the AUTOMOTIVE DRIVABILITY TECHNICIAN or PA documentation, treatment plan, and [...] - 130 mg/dL 01/14/2018 11:25 PM EDT [facility] Comment:Serial Number: [id number] Blood 01/14/2018 9:31 PM EDT 01/14/2018 11:25 PM EDT Dominik Rizo MD POINT OF CARE TEST ORDERABLES Final Result [facility]
[address] [id number], * (ABNORMAL) Blood Gas, Venous (01/14/2018 9:10 PM EDT) Site Arterial Line 01/14/2018 9:07 PM EDT [facility] pH, Venous 7.354 7.320 - 7.420 pH Units 01/14/2018 9:07 PM EDT [facility] pCO2, Venous 40.8 40.0 - 50.0 mm Hg 01/14/2018 9:07 PM EDT [facility] pO2, Venous 28.9(L) 30.0 - 50.0 mm Hg 01/14/2018 9:07 PM EDT [facility] HCO3, Venous 22.7 22.0 - 28.0 mmol/L 01/14/2018 9:07 PM EDT [facility] Base Excess, Venous -2.8(L) 0.0 - 2.0 mmol/L 01/14/2018 9:07 PM EDT [facility] O2 Saturation, Venous 53.5 45.0 - 75.0 % 01/14/2018 9:07 PM EDT [facility] Hemoglobin, Blood Gas 11.7(L) 12 - 18 g/dL 01/14/2018 9:07 PM EDT [facility] Barometric Pressure for Blood Gas 735 mmHg 01/14/2018 9:07 PM EDT [facility] Modality Room Air 01/14/2018 9:07 PM EDT [facility] FIO2 21 % 01/14/2018 9:07 PM EDT [facility] Venous Blood 01/14/2018 9:10 PM EDT 01/14/2018 9:07 PM EDT Dominik Rizo MD LAB BLOOD ORDERABLES Final Res ult [facility]
[address] [place] [address], * (ABNORMAL) CBC Auto Differential (01/14/2018 9:01 PM EDT) WBC 9.85 4.80 - 10.80 10*3/mm3 01/14/2018 9:09 PM EDT [facility] RBC 3.98(L) 4.20 - 5.40 10*6/mm3 01/14/2018 9:09 PM EDT [facility] Hemoglobin 11.8(L) 12.0 - 16.0 g/dL 01/14/2018 9:09 PM EDT [facility] Hematocrit 33.9(L) 37.0 - 47.0 % 01/14/2018 9:09 PM EDT [facility] MCV 85.2 81.0 - 99.0 fL 01/14/2018 9:09 PM EDT [facility] MCH 29.6 27.0 - 31.0 pg 01/14/2018 9:09 PM EDT [facility] MCHC 34.8 30.0 - 37.0 g/dL 01/14/2018 9:09 PM EDT [facility] RDW 11.9 11.5 - 14.5 % 01/14/2018 9:09 PM EDT [facility] RDW-SD 37.0 37.0 - 54.0 fl 01/14/2018 9:09 PM EDT [facility] MPV 13.2(H) 6.0 - 12.0 fL 01/14/2018 9:09 PM EDT [facility] Platelets 192 130 - 400 10*3/mm3 01/14/2018 9:09 PM EDT [facility] Neutrophil % 44.4 37.0 - 80.0 % 01/14/2018 9:09 PM EDT [facility] Lymphocyte % 46.7 10.0 - 50.0 % 01/14/2018 9:09 PM EDT [facility] Monocyte % 4.5 0.0 - 12.0 % 01/14/2018 9:09 PM EDT [facility] Eosinophil % 3.8 0.0 - 7.0 % 01/14/2018 9:09 PM EDT [facility] Basophil % 0.4 0.0 - 2.5 % 01/14/2018 9:09 PM EDT [facility] Immature Grans % 0.2 0.0 - 0.6 % 01/14/2018 9:09 PM EDT [facility] Neutrophils, Absolute 4.38 2.00 - 6.90 10*3/mm3 01/14/2018 9:09 PM EDT [facility] Lymphocytes, Absolute 4.60(H) 0.60 - 3.40 10*3/mm3 01/14/2018 9:09 PM EDT [facility] Monocytes, Absolute 0.44 0.00 - 0.90 10*3/mm3 01/14/2018 9:09 PM EDT [facility] Eosinophils, Absolute 0.37 0.00 - 0.70 10*3/mm3 01/14/2018 9:09 PM EDT [facility] Basophils, Absolute 0.04 0.00 - 0.20 10*3/mm3 01/14/2018 9:09 PM EDT [facility] Immature Grans, Absolute 0.02 0.00 - 0.06 10*3/mm3 01/14/2018 9:09 PM EDT [facility] nRBC 0.0 0.0 - 0.0 /100 WBC 01/14/2018 9:09 PM EDT [facility] Blood Venipuncture / Unknown 01/14/2018 9:01 PM EDT 01/14/2018 9:06 PM EDT us Stormy Vyas ETHANOL QUALITY LEADER LAB BLOOD ORDERABLE S Final Result [facility]
[address] [id number], * Lactic Acid, Plasma (01/14/2018 9:01 PM EDT) Lactate 1.7 0.5 - 2.0 mmol/L 01/14/2018 9:23 PM EDT [facility] Blood Venipuncture / Unknown 01/14/2018 9:01 PM EDT 01/14/2018 9:06 PM EDT Stormy Vyas ETHANOL QUALITY LEADER LAB BLOOD ORDERABLE S Final Result [facility]
[address] [place] [address], * (ABNORMAL) Comprehensive Metabolic Panel (01/14/2018 9:01 PM EDT) Glucose 380(HH) 74 - 98 mg/dL 01/14/2018 9:51 PM EDT [facility] BUN 30(H) 7 - 20 mg/dL 01/14/2018 9:51 PM EDT [facility] Creatinine 2.00(H) 0.60 - 1.30 mg/dL 01/14/2018 9:51 PM EDT [facility] Sodium 134(L) 137 - 145 mmol/L 01/14/2018 9:51 PM EDT [facility] Potassium 4.3 3.5 - 5.1 mmol/L 01/14/2018 9:51 PM EDT [facility] Chloride 101 98 - 107 mmol/L 01/14/2018 9:51 PM EDT [facility] CO2 22.0(L) 26.0 - 30.0 mmol/L 01/14/2018 9:51 PM EDT [facility] Calcium 9.5 8.4 - 10.2 mg/dL 01/14/2018 9:51 PM EDT [facility] Total Protein 6.9 6.3 - 8.2 g/dL 01/14/2018 9:51 PM EDT [facility] Albumin 3.80 3.50 - 5.00 g/dL 01/14/2018 9:51 PM EDT [facility] ALT (SGPT) 12(L) 13 - 69 U/L 01/14/2018 9:51 PM EDT [facility] AST (SGOT) 15 15 - 46 U/L 01/14/2018 9:51 PM EDT [facility] Alkaline Phosphatase 104 38 - 126 U/L 01/14/2018 9:51 PM EDT [facility] Total Bilirubin 0.3 0.2 - 1.3 mg/dL 01/14/2018 9:51 PM EDT [facility] eGFR Non Amer 30(L) >60 mL/min/1.7 3 01/14/2018 9:51 PM EDT [facility] Globulin 3.1 gm/dL 01/14/2018 9:51 PM EDT [facility] A/G Ratio 1.2 1.0 - 2.0 g/dL 01/14/2018 9:51 PM EDT [facility] BUN/Creatinine Ratio 15.0 7.1 - 23.5 01/14/2018 9:51 PM EDT [facility] Anion Gap 15.3 10.0 - 20.0 mmol/L 01/14/2018 9:51 PM EDT [facility] Blood Venipuncture / Unknown 01/14/2018 9:01 PM EDT 01/14/2018 9:06 PM EDT Narrative [facility] - 01/14/2018 9:51 PM EDT GFR Normal >60 Chronic Kidney Disease <60 Kidney Failure <15 Stormy Vyas ETHANOL QUALITY LEADER LAB BLOOD ORDERABLE S Final Result [facility]
[address] [place] [address], [place] [phone] * (ABNORMAL) Urinalysis, Microscopic Only - Urine, Clean Catch (01/14/2018 9:00 PM EDT) RBC, UA 0-2(A) None Seen /HPF 01/14/2018 9:25 PM EDT [facility] WBC, UA 0-2(A) None Seen /HPF 01/14/2018 9:25 PM EDT [facility] Bacteria, UA Trace(A) None Seen /HPF 01/14/2018 9:25 PM EDT [facility] Squamous Epithelial Cells, UA 3-6(A) None Seen, 0-2 /HPF 01/14/2018 9:25 PM EDT [facility] Hyaline Casts, UA None Seen None Seen /LPF 01/14/2018 9:25 PM EDT [facility] Mucus, UA Trace None Seen, Trace /HPF 01/14/2018 9:25 PM EDT [facility] Methodology Manual Light Microscopy 01/14/2018 9:25 PM T [facility] Urine Urine specimen collection, clean catch / Unknown Collection / Unknown 01/14/2018 9:00 PM EDT 01/14/2018 9:06 PM EDT Stormy Vyas ETHANOL QUALITY LEADER URINE ORDERABLES nal Result [facility]
[address] [place] [address], [place] [phone] * (ABNORMAL) Urinalysis With Culture If Indicated - Urine, Clean Catch (01/14/2018 9:00 PM EDT) Color, UA Yellow Yellow, Straw 01/14/2018 9:13 PM EDT [facility] Appearance, UA Clear Clear 01/14/2018 9:13 PM EDT [facility] pH, UA 6.5 5.0 - 8.0 01/14/2018 9:13 PM EDT [facility] Specific [place], UA 1.020 1.005 - 1.030 01/14/2018 9:13 PM EDT [facility] Glucose, UA >=1000 mg/dL (3+)(A) Negative 01/14/2018 9:13 PM EDT [facility] Ketones, UA Negative Negative 01/14/2018 9:13 PM EDT [facility] Bilirubin, UA Negative Negative 01/14/2018 9:13 PM EDT [facility] Blood, UA Trace(A) Negative 01/14/2018 9:13 PM EDT [facility] Protein, UA >=300 mg/dL (3+)(A) Negative 01/14/2018 9:13 PM EDT [facility] Leuk Esterase, UA Negative Negative 01/14/2018 9:13 PM EDT [facility] Nitrite, UA Negative Negative 01/14/2018 9:13 PM EDT [facility] Urobilinogen, UA 0.2 E.U./dL 0.2 - 1.0 E.U./dL 01/14/2018 9:13 PM EDT [facility] Urine Urine specimen collection, clean catch / Unknown Collection / Unknown 01/14/2018 9:00 PM EDT 01/14/2018 9:06 PM EDT Stormy Vyas APRN URINE ORDERABLES Fi nal Result Performing Organization Address City/[facility]/ZIP Co de Phone Number [facility]
[address] [place] [address], * (ABNORMAL) POC Glucose Once (01/14/2018 8:05 PM EDT) [facility] Signature Glucose 533(HH) 70 - 130 mg/dL 01/14/2018 8:10 PM EDT [facility] Comment:Serial Number: [id number] Blood 01/14/2018 8:05 PM EDT 01/14/2018 8:10 PM EDT Dominik Rizo MD POINT OF CARE TEST ORDERABLES Final Result Performing Organization Address [facility]/ZIP Co de Phone Number [facility]
[address] [place] [address], [place] [phone] documented in this encounter Visit Diagnoses Diagnosis [...] RN) documented in this encounter Care Teams Golf Teacher Relationship Specialty Start Date End Date Lauren Slade APRN [address] [facility] [address], [address] [place] [address] PCP - General Family Medicine 09/22/17 02/05/18 documented as of this encounter
--- OUTSIDE RECORDS SUMMARY | 2024-06-19 08:48 | XMS_ITS | Encounter Summary ---
[facility] Address [address] [place] [address] Care Team Providers Care Maple Syrup Maker Name Role Phone Lauren Slade ANJU Primary Care Provider [phone] Reason for Visit * Reason Comments Hyperglycemia Chest Pain Encounter Details Date Type Department Care Team (Late st Contact Info) Description 01/31/2018 2:08 PM EDT - 01/31/2018 5:54 PM EDT Emergency [facility] [address] [place] [phone] Mickey Cerda MD [address] [place] [address] Hyperglycemia without ketosis (Primary Dx); [...] Care Everywhere. * Blood Glucose Monitoring Adult (Mauritian) * Hyperglycemia (Mauritian) * Glomerular Filtration Rate (Mauritian) * Nonspecific Chest Pain [id number] (Mauritian) documented in this encounter Medications at [...] at this time. Ladan Young RN 01/31/18 7132 * Vinny Crowder PA-C - 01/31/2018 2:06 [...] hyperlipidemia, and diabetes. History provided by: Patient associate professor of church music used: No Chest Pain Pain location: Substernal [...] no aortic disease Hyperglycemia Blood sugar level PLASTER TENDER: 600 Severity: Moderate Onset quality: Sudden Duration: [...] For this patient encounter, I reviewed the RAIL SPLITTER or PA documentation, treatment plan, and medical [...] ORDERABLES Fi nal Result Performing Organization Address City/[facility] Co de Phone Number [facility]
[address] [place] [address], * (ABNORMAL) POC Glucose Once (01/31/2018 4:38 PM EDT) Glucose 357(H) 70 - 130 mg/dL 02/01/2018 9:55 AM EDT [facility] Comment:Serial Number: [id number]: [id number] Blood 01/31/2018 4:38 PM EDT 02/01/2018 9:55 AM EDT Mickey Cerda MD POINT OF CARE TEST ORDERABL ES Final Result Performing Organization Address [facility] Co de Phone Number [facility]
[address] [place] [address], * XR Chest 2 View (01/31/2018 3:20 PM EDT) Anatomical Region Laterality Modality Body N/A Radiographic Kim ging 01/31/2018 3:09 PM EDT Impressions 01/31/2018 3:09 PM EDT No acute cardiopulmonary findings. ? This report was finalized on 01/31/2018 3:09 PM by Surendra Pkie MD. Narrative 01/31/2018 3:09 PM EDT PROCEDURE: [...] Result [facility]
[address] [place] [address], [place] [phone] * (ABNORMAL) Urinalysis With Microscopic If Indicated (No Culture) - Urine, Clean Catch (01/31/2018 3:20 PM EDT) Color, UA Yellow Yellow, Straw 01/31/2018 3:31 PM EDT [facility] Appearance, UA Clear Clear 01/31/2018 3:31 PM EDT [facility] pH, UA 6.0 5.0 - 8.0 01/31/2018 3:31 PM EDT [facility] Specific [place], UA 1.020 1.005 - 1.030 01/31/2018 3:31 [...] Result [facility]
[address] [id number], * Urine Drug Screen - Urine, Clean [...] Result [facility]
[address] [place] [address], [place] [phone] * (ABNORMAL) Blood Gas, Arterial With Co-Ox [...] [facility]
[address] [place] [address], * Lipase (01/31/2018 2:15 PM EDT) Lipase 99 23 - 300 U/L 01/31/2018 2:49 PM EDT [facility] Blood Venipuncture / Unknown 01/31/2018 2:15 PM EDT 01/31/2018 2:22 PM EDT Vinny Crowder PA-C LAB BLOOD ORDERABLES Fi nal Result [facility]
[address] [phone] * (ABNORMAL) Comprehensive Metabolic Panel (01/31/2018 2:15 [...] 98 - 107 mmol/L 01/31/2018 2:51 PM [facility] CO2 22.0(L) 26.0 - 30.0 mmol/L 01/31/2018 2:51 PM [facility] Calcium 8.6 8.4 - 10.2 mg/dL 01/31/2018 2:51 PM [facility] Total Protein 6.1(L) 6.3 - 8.2 g/dL 01/31/2018 2:51 PM [facility] Albumin 3.30(L) 3.50 - 5.00 g/dL 01/31/2018 2:51 PM [facility] ALT (SGPT) 19 13 - 69 [...] Result [facility]
[address] [id number], * (ABNORMAL) CBC Auto Differential (01/31/2018 2:15 [...] Result [facility]
[address] [place] [address], * aPTT (01/31/2018 2:15 PM EDT) PTT 25.2 25.0 - 36.0 seconds 01/31/2018 2:46 PM EDT [facility] Blood Venipuncture / Unknown 01/31/2018 2:15 PM EDT 01/31/2018 2:22 PM EDT Vinny MENDEZ-Todd LAB BLOOD ORDERABLES Fi nal Result [facility]
[address] [place] [address], [place] [phone] * Protime-INR (01/31/2018 2:15 PM EDT) Protime 10.4 9.3 - 12.1 Seconds 01/31/2018 2:46 PM EDT [facility] INR 0.93 0.90 - 1.10 01/31/2018 2:46 PM EDT [facility] Blood Venipuncture / Unknown 01/31/2018 2:15 PM EDT 01/31/2018 2:22 PM EDT Vinny MENDEZ-C LAB BLOOD ORDERABLES Fi nal Result [facility]
[address] [place] [address], [place] [phone] * D-dimer, Quantitative (01/31/2018 2:15 PM EDT) D-Dimer, Quantitative 287 0 - 500 ng/mL (FEU) 01/31/2018 3:07 PM EDT [facility] Blood Venipuncture / Unknown 01/31/2018 2:15 PM EDT 01/31/2018 2:22 PM EDT Vinny MENDEZ-C LAB BLOOD ORDERABLES Fi nal Result Performing Organization Address [facility]/ZIP Co de Phone Number [facility]
[address] [place] [address], [place] [phone] * Troponin (01/31/2018 2:15 PM EDT) Pathologist [facility] Troponin I <0.012 0.000 - 0.034 ng/mL [...] Result [facility]
[address] [id number], * Lactic Acid, Plasma (01/31/2018 2:15 PM EDT) Lactate 1.4 0.5 - 2.0 mmol/L 01/31/2018 2:37 PM EDT [facility] Blood Venipuncture / Unknown 01/31/2018 2:15 PM EDT 01/31/2018 2:22 PM EDT Vinny Crowder PA-C LAB BLOOD ORDERABLES Fi nal Result [facility]
[address] [place] [address], * (ABNORMAL) POC Glucose Once (01/31/2018 2:06 PM EDT) Glucose 515(HH) 70 - 130 mg/dL 02/01/2018 9:55 AM EDT [facility] Comment:Serial Number: [id number] Blood 01/31/2018 2:06 PM EDT 02/01/2018 9:55 AM EDT Mickey Cerda MD POINT OF CARE TEST ORDERABL ES Final Result [facility]
[address] [place] [address], documented in this encounter Visit Diagnoses Diagnosis [...] 1408 documented in this encounter Care Teams Maple Syrup Maker Relationship Specialty Start Date End Date Lauren Slade APRN [facility] [place] [address] PCP - General Family Medicine 09/22/17 02/05/18 documented as of this encounter
--- OUTSIDE RECORDS SUMMARY | 2024-06-19 08:49 | XMS_ITS | Encounter Summary ---
Author Organization [facility] Address [address] [place] [address] Care Team Providers Care Fruit Rancher Name Role Phone Jaquan Conley MD Primary Care Provider + [phone] Encounter Details Date Type Department Care Team (Late st Contact Info) Description 01/26/2021 Orders Only [facility] [address] , [address] [place] [address] Valentine Boggs, VIVIE, RD [address] [facility] [address] [place] [address] Social History Tobacco Use Types [...] [facility] [address] , [address] [place] [address] Erica Ventura PA [address] [facility] [address] [place] [address] documented as of this encounter Visit Diagnoses Not on filedocumented in this encounter Care Teams Fruit Rancher Relationship Specialty Start Date End Date Jaquan Conley MD [address] [place], [place] [id number] PCP - General 11/28/20 documented as of this encounter
--- OUTSIDE RECORDS SUMMARY | 2024-06-19 08:49 | XMS_ITS | Encounter Summary ---
Author Organization [facility] Address [address] [place] [address] Care Team Providers Care Rn Clinician Name Role Phone Jaquan Conley MD Primary Care Provider + [phone] Encounter Details Date Type Department Care Team [...] Description 08/28/2024 11:00 AM EST Office Visit [facility] Endocrinology [address] , [address] [place] [address] Erica Ventura PA [address] [place] [address] documented as of this encounter Visit Diagnoses Not on filedocumented in this encounter Additional Health Concerns Assessment Noted Time A fall risk assessment has been complete d for the patient 12/16/2022 12:47 PM EDT A Body Mass Index follow-up plan has been documented for the patient 12/16/2022 1:35 PM EDT documented as of this encounter Care Teams Rn Clinician Relationship Specialty Start Date End Date Jaquan Conley MD [address] [place] [address] PCP - General 11/28/20 documented as of this encounter
--- OUTSIDE RECORDS SUMMARY | 2024-06-19 08:49 | XMS_ITS | Encounter Summary ---
Author Organization [facility] Address [address] [place] [address] Care Team Providers Care Financial Reporting Advisor Name Role Phone Jaquan Conley MD Primary Care Provider + [phone] Reason for Visit * Reason Onset Date Comments HCN - Patient Message 06/07/2023 Encounter Details Date Type Department Care Team (Late st Contact Info) Description 06/07/[address] [facility] [address] [place] [address] Khloe Elias, ANJU [address] [phone] HCN - Patient Message Social [...] Clinical Concern/Question Reason for Call: Simran, with [facility] is requesting the most recent office notes on this pt. Best contact number: Other: [phone] Optimal time of day to reach caller: ANYTIME Additional comments/information from caller: None Note: Please do not reply to this message. Follow-up communication and further actions as a result of this message need to be communicated with the patient directly, if the patient is not active onMyChart. If the patient is active on MyChart, they will receive notification of the communication/outcome via [facility]. documented in this encounter Plan of Treatment Upcoming Encounters Date Type Department Care Team (Late st Contact Info) Description 08/28/2024 11:00 AM EST Office Visit [facility] Endocrinology [address] [facility], [address] [place] [address] Erica Ventura PA [address] [facility] [address] [place] [address] documented as of this encounter Visit Diagnoses Not on filedocumented in this encounter Additional Health Concerns Assessment Noted Time A fall risk assessment has been complete d for the patient 12/16/2022 12:47 PM EDT A Body Mass Index follow-up plan has been documented for the patient 12/16/2022 1:35 PM EDT documented as of this encounter Care Teams Financial Reporting Advisor Relationship Specialty Start Date End Date Jaquan Conley MD [address] [place] [address] PCP - General 11/28/20 documented as of this encounter
--- OUTSIDE RECORDS SUMMARY | 2024-06-19 08:49 | XMS_ITS | Encounter Summary ---
Author Organization [facility] Address [address] [place] [address] Care Team Providers Care Guest Services Coordinator Name Role Phone Jaquan Conley MD Primary Care Provider + [phone] Reason for Visit * Reason Comments Follow-up Type 1 DM Encounter Details Date Type Department Care Team (Late st Contact Info) Description 12/21/2021 12:40 PM EDT Office Visit [facility] Endocrinology [address], [address] [place] [address] Pearl Gilman, SUPERVISOR TESTING [address] [facility] [address] [place] [address] Type 1 diabetes mellitus with [...] that she is on transplant list at [facility] and awaiting kidney. Today A1c: 5.5% Current [...] When did you have labs last?: December [facility] nephrology The following portions of the [...] care. Electronically signed by: Pearl Gilman APRN [facility] ENDOCRINOLOGY [address] [place]. [address] PHONE [phone] FAX: [phone] documented in this encounter Plan of Treatment Upcoming Encounters Date Type Department Care Team (Late st Contact Info) Description 08/28/2024 11:00 AM EST Office Visit [facility] Endocrinology [address], [address] [place] [address] Erica Ventura PA [address] [place] [address] documented as of this encounter [...] POCT Hemoglobin A1C 5.5 4.4-6.6 % % [facility] Kit Lot Number n/a [facility] OutTrippinCARE LAB Kit Expiration Date n/a [facility] Blood Venous blood specimen / Unknown 12/21/2021 1:03 PM EDT us Pearl Brooks Mukul SUPERVISOR TESTING POINT OF CARE TEST ENTER/RANDY T ORDERABLES Final Result [facility] [address] [place] [address] documented in this encounter Visit Diagnoses Diagnosis 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 (CMS/[facility])- Primary Hyperlipidemia, unspecified hyperlipidemia type Essential hypertension Unspecified essential hypertension Chronic kidney disease, stage IV (severe) (CMS/HCC) Chronic kidney disease, Stage IV (severe) documented in this encounter Additional Health Concerns Assessment Noted Time A fall risk assessment has been complete d for the patient 12/21/2021 12:59 PM EDT documented as of this encounter Care Teams Guest Services Coordinator Relationship Specialty Start Date End Date Jaquan Conley MD [address] [place] [address] PCP - General 11/28/20 documented as of this encounter
--- OUTSIDE RECORDS SUMMARY | 2024-06-19 08:49 | XMS_ITS ---
Author Organization [facility] Address [address] [place] [address] Care Team Providers Care Diesel Service Technician Name Role Phone Jaquan Conley MD Primary Care Provider + [phone] Transplant Episode Kidney Candidate [facility] ([place], [place]) [facility] Evaluation began on 08/17/2018 Marked as Ineligible on 11/10/2018 Reason: Candidate Workup Incomplete Kidney CoordinatorHilaria Hsu RN Phone: N/A Fax: N/A Email: N/A Scores Score Value Updated Exceptions/Reas ons CPRA Not available EPTS (Calc) 16 06/19/2024 Care Team Name Role Phone Fax Email Hilaria Hsu RN Kidney Coordinator N/A N/A N/A Crys Gilman Emt B N/A N/A N/A Mukul Stevens MD Referring Physician N/A N/A N/A Events Pre-Transplant Referred: 07/24/2018 Evaluation began: 08/17/2018
--- OUTSIDE RECORDS SUMMARY | 2024-06-19 08:49 | XMS_ITS | Encounter Summary ---
Author Organization [facility] Address [address] [place] [address] Care Team Providers Care Massage Coordinator Name Role Phone Jaquan Conley MD Primary Care Provider + [phone] Reason for Visit * Reason Comments Diabetes Encounter Details Date Type Department Care Team (Late st Contact Info) Description 09/13/2022 1:20 PM EST [facility] End[facility]ology [address] [place] [address] Erica Ventura PA [address] [place] [address] Type 1 diabetes mellitus with [...] 05/08 from 5.5% 12/2021 -Evaluation today with [facility] general surgery for peritoneal dialysis catheter, will follow [facility], laparoscopic placement scheduled with Dr. Cb Renee for 09/23 at [facility] -At last office visit reduced all [...] is not on renal transplant list at [facility] as she is not currently [...] of care. Electronically signed by: ANDREA Kumari [facility] ENDOCRINOLOG[facility] [address] [place]. [address] PHONE [phone] FAX: [phone] documented in this encounter Plan of Treatment Upcoming Encounters Date Type Department Care Team (Late st Contact Info) Description 08/28/2024 11:00 AM EST Office Visit [facility] Endocrinology [facility] [address] [place] [address] Erica Ventura PA [address] [address] [place] [address] documented as of this encounter Procedures Procedure Name Priority Date/Time Associated Diagnosis Comments POCT GLYCOSYLATED HEMOGLOBIN (HGB A1C) Routine 09/13/2022 1:08 PM EST Type 1 diabetes mellitus with other specified complication (CMS/HCC) documented in this encounter Results * POCT glycosylated hemoglobin (Hb A1C) docked device (09/13/2022 1:08 PM EST) POCT Hemoglobin A1C 5.1 4.4-6.6 % % Document [employer] LAB Kit Lot Number n/a [employer] [facility] Kit Expiration Date n/a [email or web address] Blood Venous blood specimen / Unknown 09/13/2022 1:08 PM EST Erica MENDEZ POINT OF CARE TEST EN TER/EDIT ORDERABLES Final Result Performing Organization Address City/State/[facility] Co de Phone Number [facility] [address] [place] [address] documented in this encounter Visit Diagnoses Diagnosis [...] documented as of this encounter Care Teams Massage Coordinator Relationship Specialty Start Date End Date Jaquan Conley MD [address] [place] [address] PCP - General 11/28/20 documented as of this encounter
--- OUTSIDE RECORDS SUMMARY | 2024-06-19 08:49 | XMS_ITS | Encounter Summary ---
Author Organization [facility] Address [address] [place] [address] Care Team Providers Care Cosmetic Account Coordinator Name Role Phone Jaquan Conley MD Primary Care Provider + [phone] Encounter Details Date Type Department Care Team (Late st Contact Info) Description 11/10/2018 [facility] Encounter HISTORICAL OTTR [address] [place] [address] Yris Schwarz, RN CH-TRANSPLANT ADMINISTRATION Social History [...] . She stated [facility] because [facility] told her she can continue [...] EDT SW received message from [facility] psych lot worker that the pt contacted her to cancel psych appt, as she has decided to pursue listing at [facility], instead of . Note to Coord. and It Account Manager for awareness. * Progress Notes - Indira Márquez - 11/09/2018 4:12 PM EDT Mailed 11/24/18 [facility] eval appt schedule w/ map to pt. * Progress Notes - Daisy Gaming - 11/08/2018 8:09 AM EDT Per [facility] Psych It Account Manager, pt has an appt with [facility] on 11/24/18 at 1:30 pm. 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 Forwarding communication to . * Progress [...] However, pt is also considering going to [facility] since she was told they are less [...] @ 0830. Updated APM, SCM, OTTR, and [place]. Will call pt and mail updated ppw. [...] from pt asking for call back at [phone] to talk about a living donor. Called and spoke w/ pt. States she has several potential living donors and they have questions about the process, testing, and requirements. Informed pt that her potential living donors can call [phone] to discuss this and receive more info, [...] EST Office Visit [facility] [address] [facility], [address] [place] [address] Erica Ventura PA [address] [place] [address] documented as of this encounter [...] on filedocumented in this encounter Care Teams Cosmetic Account Coordinator Relationship Specialty Start Date End Date Jaquan Conley MD [address] [place] [address] PCP - General 11/28/20 documented as of this encounter
--- OUTSIDE RECORDS SUMMARY | 2024-06-19 08:49 | XMS_ITS | Encounter Summary ---
Author Organization [facility] Address [address] [place] [address] Care Team Providers Care Agronomy Location Manager Name Role Phone Jaquan Conley MD Primary Care Provider + [phone] Encounter Details Date Type Department Care Team (Late st Contact Info) Description 06/20/2023 1:20 PM EST Office Visit [facility] Endocrinology [address], [address] [place] [address] Erica Ventura PA [address] [place] [address] Type 1 diabetes mellitus with [...] received Dexcom through DME with Medicare,now on [place] medicaid, Dexcom G7 prescription sent today, reviewed [...] of care. Electronically signed by: ANDREA Kumari [facility] ENDOCR[facility] [address] [facility]. [address] [place]. [address] PHONE [phone] FAX: [phone] documented in this encounter Plan of Treatment Upcoming Encounters Date Type Department Care Team (Late st Contact Info) Description 08/28/2024 11:00 AM EST Office Visit [facility] Endocrinology [address] [facility], [address] [place] [address] Erica Ventura PA [address] [facility] [address] [place] [address] documented as of this encounter Procedures Procedure Name Priority Date/Time Associated Diagnosis Comments POCT GLYCOSYLATED HEMOGLOBIN (HGB A1C) Routine 06/20/2023 12:56 PM EST Type 1 diabetes mellitus with other specified complication (CMS/HCC) documented in this encounter Results * POCT glycosylated hemoglobin (Hb A1C) docked device (06/20/2023 12:56 PM EST) POCT Hemoglobin A1C 5.1 <5.7% Non-Diabet ic Affirm LAB Kit Lot Number [id number] [facility] Visual IQ LAB Kit Expiration Date 02/14/25 [facility] LAB Blood Venous blood specimen / Unknown 06/20/2023 12:56 PM EST us Erica MENDEZ POINT OF CARE TEST EN TER/EDIT ORDERABLES Final Result [facility] [address] [place] [address] documented in this encounter Visit Diagnoses Diagnosis [...] documented as of this encounter Care Teams Agronomy Location Manager Relationship Specialty Start Date End Date Jaquan Conley MD [address] [place] [address] PCP - General 11/28/20 documented as of this encounter
--- OUTSIDE RECORDS SUMMARY | 2024-06-19 08:49 | XMS_ITS | Encounter Summary ---
Author Organization [facility] Address [address] [place] [address] Care Team Providers Care Report Writer Name Role Phone Jaquan Conley MD Primary Care Provider + [phone] Reason for Visit * Reason Comments Diabetes type1 Encounter Details Date Type Department Care Team (Late st Contact Info) Description 05/13/2022 1:20 PM EDT Office Visit [facility] [address] [place] [address] Erica Ventura PA [address] [place] [address] Type 1 diabetes mellitus with [...] education team with any questions or concerns [phone] * Progress Notes - Erica Valdivia PA [...] that she is on transplant list at [facility] and awaiting kidney. Cardiovascular risk factors: diabetes [...] of care. Electronically signed by: ANDREA Kumari [facility] [address] [facility] [place]. 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 (CMS/HCC) documented in this encounter Results * POCT glycosylated hemoglobin (Hb A1C) docked device (05/13/2022 1:07 PM EDT) POCT Hemoglobin A1C 4.8 4.4-6.6 % % [facility] Kit Lot Number na [facility] Energy[facility] LAB Kit Expiration Date na [facility] Blood Venous blood specimen / Unknown 05/13/2022 1:07 PM EDT Erica MENDEZ POINT OF CARE TEST EN TER/EDIT ORDERABLES Final Result Performing Organization Address City/State/[facility] Co de Phone Number [facility] [employer] [facility] [address] [place] [address] documented in this encounter Visit Diagnoses Diagnosis [...] documented as of this encounter Care Teams Report Writer Relationship Specialty Start Date End Date Jaquan Conley MD [address] [place] [address] PCP - General 11/28/20 documented as of this encounter
--- OUTSIDE RECORDS SUMMARY | 2024-06-19 08:49 | XMS_ITS | Encounter Summary ---
Author Organization [facility] Address [address] [place] [address] Care Team Providers Care Electric Motor Mechanic Name Role Phone Jaquan Conley MD Primary Care Provider + [phone] Reason for Visit * Reason Onset Date Comments HCN - Patient Message 09/25/2021 Encounter Details Date Type Department Care Team (Late st Contact Info) Description 09/25/2021 Telephone [facility] Endocrinology [address] [facility], [address] [place] [address] Pearl Gilman, RECONSTRUCTIVE DENTIST [address] [facility] [address] [place] [address] HCN - Patient Message Social [...] orders and the A1C for patient to: [place] [address] [place] [address] Best contact number and optimal time of day to reach caller: [phone] (leave msg w/sister; Daisy Shaffer or in-law [...] Description 08/28/2024 11:00 AM EST Office Visit [facility] Endocrinology [address] [facility], [address] [place] [address] Erica Ventura PA [address] [facility] [address] [place] [address] documented as of this encounter Visit Diagnoses Not on filedocumented in this encounter Care Teams Electric Motor Mechanic Relationship Specialty Start Date End Date Jaquan Conley MD [address] [place] [address] PCP - General 11/28/20 documented as of this encounter
--- OUTSIDE RECORDS SUMMARY | 2024-06-19 08:49 | XMS_ITS | Encounter Summary ---
Author Organization [facility] Address [address] [place] [address] Care Team Providers Care Test Cell Technician Name Role Phone Jaquan Conley MD Primary Care Provider + [phone] Encounter Details Date Type Department Care Team (Late st Contact Info) Description 10/18/2018 [facility] Committee HISTORICAL OTTR [address] [place] [address] Yris Schwarz, RN CH-TRANSPLANT ADMINISTRATION Social History [...] not a candidate. * Progress Notes - Jeaninne Tinajero - 08/16/2018 2:18 PM EST ICE: [...] in nephrology clinic note that she left [facility] after admission for increasing creatinine and e. coli UTI, consider starting with social work. She also initially stated didn't want to pursue kidney transplant if she couldn't get a pancreas at same time. * Progress Notes - Hilaria Hsu - 08/16/2018 9:25 AM EST Start eval with ; pt left [facility] per [facility] records. Pt has been 5 times; has 2 children, one of which is in [place] with her latest . documented in this encounter Plan of Treatment Upcoming Encounters Date Type Department Care Team (Late st Contact Info) Description 08/28/2024 11:00 AM EST Office Visit [facility] Endocrinology [address], [address] [place] [address] Erica Ventura PA [address] [place] [address] documented as of this encounter Visit Diagnoses Not on filedocumented in this encounter Care Teams Test Cell Technician Relationship Specialty Start Date End Date Jaquan Conley MD [address] [place], [place] [id number] PCP - General 11/28/20 documented as of this encounter
--- OUTSIDE RECORDS SUMMARY | 2024-06-19 08:49 | XMS_ITS | Encounter Summary ---
Author Organization [facility] Address [address] [place] [id number] Care Team Providers Care Chief Credit Officer Name Role Phone Jaquan Conley MD Primary Care Provider + [phone] Encounter Details Date Type Department Care Team (Late st Contact Info) Description 11/17/2022 [facility]phone [facility] [address] [place] [address] Erica Ventura PA [address] [facility] [address] [place] [address] Social History Tobacco Use [...] Pt state her address has change to: [address] [place] [address] [place] [address] Can you put this change in for [...] Description 08/28/2024 11:00 AM EST [facility] [address] [place] [address] Erica Ventura PA [address] [facility] [address] [place] [address] documented as of this encounter Visit Diagnoses Not on filedocumented in this encounter Additional Health Concerns Assessment Noted Time A fall risk assessment has been complete d for the patient 09/13/2022 1:03 PM EST A Body Mass Index follow-up plan has been documented for the patient 09/13/2022 1:44 PM EST documented as of this encounter Care Teams Chief Credit Officer Relationship Specialty Start Date End Date Jaquan Conley MD [address] [place] [address] PCP - General 11/28/20 documented as of this encounter
--- OUTSIDE RECORDS SUMMARY | 2024-06-19 08:49 | XMS_ITS | Encounter Summary ---
Author Organization [facility] Address [address] [place] [address] Care Team Providers Care Door Framer Name Role Phone Jaquan Conley MD Primary Care Provider + [phone] Encounter Details Date Type Department Care Team [...] AM EST [facility] Endocrinology [address] [place] [address] Erica Ventura PA [address] [place] [address] documented as of this encounter Visit Diagnoses Not on filedocumented in this encounter Care Teams Door Framer Relationship Specialty Start Date End Date Jaquan Conley MD [address] [place], [place] [phone] PCP - General 11/28/20 documented as of this encounter
--- OUTSIDE RECORDS SUMMARY | 2024-06-19 08:49 | XMS_ITS | Encounter Summary ---
Author Organization [facility] Address [address] [place] [address] Care Team Providers Care Piano Regulator Inspector Name Role Phone Jaquan Conley MD Primary Care Provider + [phone] Reason for Visit * Reason Comments Med Refill Encounter Details Date Type Department Care Team (Late st Contact Info) Description 04/26/2021 [facility] [address] [place] [address] Julisa Morales, SAND CONDITIONER MACHINE [address] [facility] [address] [place] [address] Type 1 diabetes mellitus without [...] 08/28/2024 11:00 AM EST [facility] End[facility]ology [address], [address] [place] [address] Erica Ventura, PA [address] [facility] [address] [place] [address] documented as of this encounter Visit Diagnoses Diagnosis Type 1 diabetes mellitus without complication (CMS/HCC)- Primary Type I (juvenile type) diabetes mellitus without mention of complication, not stated as uncontrolled documented in this encounter Care Teams Piano Regulator Inspector Relationship Specialty Start Date End Date Jaquan Conley MD [address] [place] [id number] PCP - General 11/28/20 documented as of this encounter
--- OUTSIDE RECORDS SUMMARY | 2024-06-19 08:49 | XMS_ITS | Encounter Summary ---
Author Organization [facility] Address [address] [place] [address] Care Team Providers Care General House Worker Name Role Phone Jaquan Conley MD Primary Care Provider + [phone] Encounter Details Date Type Department Care Team [...] 11:00 AM EST Office Visit [facility] Endocrinology [address], [address] [place] [address] Erica Ventura PA [address] [place] [address] documented as of this encounter Visit Diagnoses Not on filedocumented in this encounter Additional Health Concerns Assessment Noted Time A fall risk assessment has been complete d for the patient 12/21/2021 12:59 PM EDT documented as of this encounter Care Teams General House Worker Relationship Specialty Start Date End Date Jaquan Conley MD [address] [place], [place] [id number] PCP - General 11/28/20 documented as of this encounter
--- OUTSIDE RECORDS SUMMARY | 2024-06-19 08:49 | XMS_ITS | Encounter Summary ---
Author Organization [facility] Address [address] [place] [id number] Care Team Providers Care Income Tax Manager Name Role Phone Jaquan Conley MD Primary Care Provider + [phone] Reason for Visit * Reason Comments Med Refill Encounter Details Date Type Department Care Team (Late st Contact Info) Description 04/04/2021 [facility] [address], [address] [place] [address] Ulises Tran RN [address] [place] [address] Type 1 diabetes mellitus with [...] 08/28/2024 11:00 AM EST [facility] Endocr[facility]ology [address], [address] [place] [address] Erica Ventura PA [address] [place] [address] documented as of this encounter Visit Diagnoses Diagnosis 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
--- OUTSIDE RECORDS SUMMARY | 2024-06-19 08:49 | XMS_ITS | Encounter Summary ---
Author Organization [facility] Address [address] [place] [address] Care Team Providers Care Tetryl Boiling Tub Operator Name Role Phone Jaquan Conley MD Primary Care Provider + [phone] Encounter Details Date Type Department Care Team [...] [facility] [address] [place] [address] Erica Ventura PA [address] [place] [address] documented as of this encounter Visit Diagnoses Not on filedocumented in this encounter Additional Health Concerns Assessment Noted Time A fall risk assessment has been complete d for the patient 12/21/2021 12:59 PM EDT documented as of this encounter Care Teams Tetryl Boiling Tub Operator Relationship Specialty Start Date End Date Jaquan Conley MD [address] [place], [place] [phone] PCP - General 11/28/20 documented as of this encounter
--- OUTSIDE RECORDS SUMMARY | 2024-06-19 08:49 | XMS_ITS | Encounter Summary ---
Author Organization [facility] Address [address] [place] [address] Care Team Providers Care Redipper Name Role Phone Jaquan Conley MD Primary Care Provider + [phone] Reason for Visit * Reason Comments Med Refill Encounter Details Date Type Department Care Team (Late st Contact Info) Description 08/08/2021 Refill [facility] Diabetes Education [address] , [address] [place] [address] Ivy Whaley MD [address] [address] Type 1 diabetes mellitus with [...] Description 08/28/2024 11:00 AM EST Office Visit [facility] Endocrinology [address], [address] [place] [address] Erica Ventura PA [address] [place] [address] documented as of this encounter Visit Diagnoses Diagnosis 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
--- OUTSIDE RECORDS SUMMARY | 2024-06-19 08:49 | XMS_ITS | Encounter Summary ---
Author Organization [facility] Address [address] [place] [address] Care Team Providers Care Breaker Layer Name Role Phone Jaquan Conley MD Primary Care Provider + [phone] Reason for Visit * Reason Comments Med Refill Encounter Details Date Type Department Care Team (Late st Contact Info) Description 09/04/2021 Refill [facility] Endocrinology [address] , [address] [place] [id number] Erica Izquierdo APRN [address] [place] [address] Type 1 diabetes mellitus with mild [...] Description 08/28/2024 11:00 AM EST Office Visit [facility] Endocrinology [address] , [address] [place] [address] Erica Ventura PA [address] [place] [address] documented as of this encounter Visit Diagnoses Diagnosis 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
--- OUTSIDE RECORDS SUMMARY | 2024-06-19 08:49 | XMS_ITS | Encounter Summary ---
Author Organization [facility] Address [address] [place] [address] Care Team Providers Care Packing Checker Name Role Phone Jaquan Conley MD Primary Care Provider + [phone] Encounter Details Date Type Department Care Team (Late st Contact Info) Description 07/30/2020 [facility] Encounter [facility] Endocrinology [address] [facility], [address] [place] [address] Provider, MD Laury [address] [place] [address] Social History Tobacco Use Types Packs/Day [...] EST Office Visit [facility] Endocrinology [address] [facility], [address] [place] [address] Erica Ventura PA [address] [facility] [address] [place] [address] documented as of this encounter Procedures Procedure Name Priority Date/Time Associated Diagnosis Comments POCT GLYCOSYLATED HEMOGLOBIN (HGB A1C) Routine 11/26/2020 1:12 PM EDT POCT GLYCOSYLATED HEMOGLOBIN (HGB A1C) Routine 07/30/2020 1:12 PM EST POCT GLYCOSYLATED HEMOGLOBIN (HGB A1C) Routine 04/28/2020 4:06 PM EDT documented in this encounter Results * WILLARD Hemoglobin A1C (11/26/2020 1:12 PM EDT) POCT Hemoglobin A1C 6.1 [facility] 11/26/2020 1:12 PM EDT Narrative [facility] - 11/26/2020 1:12 PM EDT Resulting Agency - AEHR POC [[facility] [place]] us Historical Provider MD POINT OF CARE TEST ENTER/ EDIT ORDERABLES Final Result Performing Organization Address City/[facility]/ZIP Co de Phone Number [facility] ENDOCRINOLOGY [address] [place] [address], [place] * WILLARD Hemoglobin A1C (07/30/2020 1:12 PM EST) POCT Hemoglobin A1C 5.0 [facility] 07/30/2020 1:12 PM EST Narrative [facility] - 07/30/2020 1:12 PM EST Resulting Agency - AEHR POC [[facility] [place]] us Historical Provider MD POINT OF CARE TEST ENTER/ EDIT ORDERABLES Final Result [facility] [address] [place] [address] [address] [place] [address], [place] * [place]ARD Hemoglobin A1C (04/28/2020 4:06 PM EDT) POCT Hemoglobin A1C 5.4 [facility] 04/28/2020 4:06 PM EDT Narrative [facility] [place] - 04/28/2020 4:06 PM EDT Resulting Agency - AEHR POC [[facility] Diabetes [facility] Endocrinology [place]] us Historical Provider POINT OF CARE TEST ENTER/ EDIT ORDERABLES Final Result [facility] [place] [address] [facility] [address] documented in this encounter Visit Diagnoses Not on filedocumented in this encounter Care Teams Packing Checker Relationship Specialty Start Date End Date Jaquan Conley MD [address] [place] [address] PCP - General 11/28/20 documented as of this encounter
--- OUTSIDE RECORDS SUMMARY | 2024-06-19 08:49 | XMS_ITS | Encounter Summary ---
Author Organization [facility] Address [address] [place] [address] Care Team Providers Care Shank Inspector Name Role Phone Jaquan Conley MD Primary Care Provider + [phone] Encounter Details Date Type Department Care Team [...] 08/28/2024 11:00 AM EST Office Visit [facility] [address], [address] [place] [address] Erica Ventura PA [address] [place] [address] documented as of this encounter Visit Diagnoses Not on filedocumented in this encounter Additional Health Concerns Assessment Noted Time A fall risk assessment has been complete d for the patient 09/13/2022 1:03 PM EST A Body Mass Index follow-up plan has been documented for the patient 09/13/2022 1:44 PM EST documented as of this encounter Care Teams Shank Inspector Relationship Specialty Start Date End Date Jaquan Conley MD [address] [place] [address] PCP - General 11/28/20 documented as of this encounter
--- OUTSIDE RECORDS SUMMARY | 2024-06-19 08:49 | XMS_ITS | Encounter Summary ---
Author Organization [facility] Address [address] [place] [id number] Care Team Providers Care Meat Lugger Name Role Phone Jaquan Conley MD Primary Care Provider + [phone] Reason for Visit * Reason Comments Med Refill Encounter Details Date Type Department Care Team (Late Contact Info) Description 07/05/2021 Refill [facility] Diabetes Education [address], [address] [place] [phone] Ulises Tran RN [address] [place] [address] Type 1 diabetes mellitus with mild [...] Description 08/28/2024 11:00 AM EST Office Visit [facility] Endocrinology [address], [address] [place] [address] Erica Ventura PA [address] [place] [address] documented as of this encounter Visit Diagnoses Diagnosis 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
--- OUTSIDE RECORDS SUMMARY | 2024-06-19 08:49 | XMS_ITS | Encounter Summary ---
Author Organization [facility] Address [address] [place] [address] Care Team Providers Care Information Technology Audit Manager Name Role Phone Jaquan Conley MD Primary Care Provider + [phone] Encounter Details Date Type Department Care Team (Late st Contact Info) Description 08/31/2021 Telephone [facility] Endocrinology [address], [address] [place] [address] Susana Thao Social History Tobacco [...] Description 08/28/2024 11:00 AM EST Office Visit [facility] Endocrinology [address] , [address] [place] [address] Erica Ventura PA [address] [facility] [address] [place] [address] documented as of this encounter Visit Diagnoses Not on filedocumented in this encounter Care Teams Information Technology Audit Manager Relationship Specialty Start Date End Date Jaquan Conley MD [address] [place] [address] PCP - General 11/28/20 documented as of this encounter
--- OUTSIDE RECORDS SUMMARY | 2024-06-19 08:49 | XMS_ITS | Encounter Summary ---
Author Organization [facility] Address [address] [place] [address] Care Team Providers Care Pallet Repairer Name Role Phone Jaquan Conley MD Primary Care Provider + [phone] Encounter Details Date Type Department Care Team (Late st Contact Info) Description 09/11/2021 11:00 AM EST Office Visit [facility] Endocrinology [address], [address] [place] [address] Erica Izquierdo S, WET COTTON FEEDER [address] [place] [address] Type 1 diabetes mellitus with [...] Notes * Progress Notes - Erica Izquierdo, WET COTTON FEEDER - 09/11/2021 11:00 AM EST Subjective Crystal [...] Patient confirms they are physically located in [place]? Yes If the patient is not physically located in [place], the provider has confirmed with Legal thatthe [...] care. Electronically signed by: Erica Izquierdo APRN [facility] ENDOCRINOLOGY [address]. [address] [place]. [address] PHONE [phone] FAX: [phone] documented in this encounter Plan of Treatment Upcoming Encounters Date Type Department Care Team (Late st Contact Info) Description 08/28/2024 11:00 AM EST Office Visit [facility] Endocrinology [address], [address] [place] [address] Erica Ventura, PA [address] [facility] [address] [place] [address] documented as of this encounter Visit Diagnoses [...] (CMS/HCC) documented in this encounter Care Teams Pallet Repairer Relationship Specialty Start Date End Date Jaquan Conley MD [address] [place] [address] PCP - General 11/28/20 documented as of this encounter
--- OUTSIDE RECORDS SUMMARY | 2024-06-19 08:49 | XMS_ITS | Encounter Summary ---
Author Organization [facility] Address [address] [place] [address] Care Team Providers Care Manager Custom Name Role Phone Jaquan Conley MD Primary Care Provider + [phone] Reason for Visit * Reason Comments Diabetes Encounter Details Date Type Department Care Team (Late st Contact Info) Description 12/16/2022 12:40 PM EDT Office Visit [facility] [address], [address] [place] [address] Erica Ventura PA [address] [facility] [address] [place] [address] Hyperglycemia (Primary Dx); Nephropathy; Retinopathy; [...] education team with any questions or concerns [phone] * Progress Notes - Erica Valdivia PA [...] [address] peritoneal dialysis catheter, [facility] is healing okay, is making it difficult to find placement for both insertion and CGM sites -[facility] needs to repeat C-peptide today to obtain new insulin pump -She did complete an eye exam last month after a black floater started in her left eye, was recommended either injections or laser for bleeding, however patient declined due to past pain with this interventions, patient reached agreement with ophthalmology -She is now on [facility] renal transplant list since doing dialysis, [facility] is going to try to be placedon [...] of care. Electronically signed by: ANDREA Kumari [facility] ENDOCRINOLOGY [address] [place] [address]. [address] [place]. [address] PHONE [phone] FAX: [phone] documented in this encounter Plan of Treatment Upcoming Encounters Date Type Department Care Team (Late st Contact Info) Description 08/28/2024 11:00 AM EST Office Visit [facility] Endocrinology [address] [place] [address], [address] [place] [address] [place] [address] [place] [address] [place] [address] documented as of this encounter Procedures Procedure Name Priority Date/Time Associated Diagnosis Comments POCT GLYCOSYLATED HEMOGLOBIN (HGB A1C) Routine 12/16/2022 12:52 PM EDT Hyperglycemia documented in this encounter Results * POCT glycosylated hemoglobin (Hb A1C) docked device (12/16/2022 12:52 PM EDT) POCT Hemoglobin A1C 5.3 4.4-6.6 % % [facility] Kit Lot Number [id number] [facility] Kit Expiration Date [address] [facility] Blood Venous blood specimen / Unknown 12/16/2022 12:52 PM EDT Erica MENDEZ POINT OF CARE TEST EN TER/EDIT ORDERABLES Final Result Performing Organization Address City/State/[facility] Co de Phone Number [facility]ALTHCARE [facility] [address] [place] [address] documented in this encounter Visit Diagnoses Diagnosis [...] as of this encounter Care Teams Manager Custom Relationship Specialty Start Date End Date Jaquan Conley MD [address] [place] [address] PCP - General 11/28/20 documented as of this encounter
--- OUTSIDE RECORDS SUMMARY | 2024-06-19 08:49 | XMS_ITS | Encounter Summary ---
Author Organization [facility] Address [address] [place] [address] Care Team Providers Care Edge Stripper Name Role Phone Unavailable Primary Care Provider Unavailabl e Encounter Details Date Type Department Care Team (Late Contact Info) Description 06/12/2018 [facility] Encounter [facility] OPHTHALMOLOGY [address] [place] [address] Joey [place] MD [address] [facility] [address] [place] [address] Social History Tobacco Use Types [...] [facility] [address] [place] [address] Erica Ventura PA [address] [place] [address] documented as of this encounter Visit Diagnoses Not on filedocumented in this encounter
--- OUTSIDE RECORDS SUMMARY | 2024-06-19 08:49 | XMS_ITS | Encounter Summary ---
Author Organization [facility] Address [address] [place] [id number] Care Team Providers Care Net Application Architect Name Role Phone Jaquan Conley MD Primary Care Provider + [phone] Reason for Visit * Reason Onset Date Comments Med Refill 07/26/2022 Encounter Details Date Type Department Care Team (Late st Contact Info) Description 07/26/[address] [facility] Diabetes Education [address] , [address] [place] [address] Erica Ventura PA [address] [facility] [address] [place] [address] Type 1 diabetes mellitus with [...] EST Received PA request from [facility] in [place] for lantus. Last rx for lantus was [facility] [place]. Updated med list and switched to levemir per [place] medicaid formulary change. 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
--- OUTSIDE RECORDS SUMMARY | 2024-06-19 08:49 | XMS_ITS | Encounter Summary ---
Author Organization [facility] Address [address] [place] [address] Care Team Providers Care Simplex Printer Installer Name Role Phone Jaquan Conley MD Primary Care Provider + [phone] Encounter Details Date Type Department Care Team (Late st Contact Info) Description 08/13/2021 Telephone [facility] Endocrinology [address] [facility], [address] [place] [address] Erica Izquierdo, PATTERNMAKER [address] [address] Social History Tobacco Use Types [...] Visit [facility] Endocrinology [address], [address] [place] [address] Erica Ventura, PA [address] [address] documented as of this encounter Visit Diagnoses Diagnosis Type 1 diabetes mellitus with mild nonproliferative retinopathy without macular edema, unspecified laterality ([facility]) documented in this encounter Care Teams Simplex Printer Installer Relationship Specialty Start Date End Date Jaquan Conley MD [address] [place] [address] PCP - General 11/28/20 documented as of this encounter
--- OUTSIDE RECORDS SUMMARY | 2024-06-19 08:49 | XMS_ITS | Encounter Summary ---
Author Organization [facility] Address [address] [place] [address] Care Team Providers Care Marble Setter Name Role Phone Jaquan Conley MD Primary Care Provider + [phone] Encounter Details Date Type Department Care Team (Late st Contact Info) Description 11/17/2022 Orders Only [facility] [address] [facility], [address] [place] [address] Mesha Patton RN [address] [facility] [address] [place] [address] Type 1 diabetes mellitus with [...] Description 08/28/2024 11:00 AM EST Office Visit [facility] Endocrinology [address], [address] [place] [address] Erica Ventura PA [address] [place] [address] documented as of this encounter [...] the two equations, please see laboratory website: ??[email or web address] Blood Venous blood specimen / Unknown Venipuncture / Unknown 12/16/2022 1:40 PM EDT 12/16/2022 3:27 PM EDT Erica MENDEZ LAB BLOOD ORDERABLES Final Result Performing Organization Address [facility] de Phone Number HEALTHCARE LAB [address] [place] [address] * (ABNORMAL) C-peptide (12/16/2022 1:40 PM EDT) [facility] Signature C Peptide 10.43(H) 0.81 - 5.30 ng/mL 12/16/2022 7:17 PM EDT [facility] Comment:To be drawn concurre ntly with basic metabolic pane Blood Venous blood specimen / Unknown Venipuncture / Unknown 12/16/2022 1:40 PM EDT 12/16/2022 3:27 PM EDT Erica MENDEZ LAB BLOOD ORDERABLES Final Result Performing Organization Address [facility] de Phone Number [facility] [address] [place] [address] documented in this encounter Visit Diagnoses Diagnosis Type 1 diabetes mellitus with nephropathy (CMS/HCC)- Primary documented in this encounter Additional Health Concerns Assessment Noted Time A fall risk assessment has been complete d for the patient 09/13/2022 1:03 PM EST A Body Mass Index follow-up plan has been documented for the patient 09/13/2022 1:44 PM EST documented as of this encounter Care Teams Marble Setter Relationship Specialty Start Date End Date Jaquan Conley MD [address] [place] [address] PCP - General 11/28/20 documented as of this encounter
--- OUTSIDE RECORDS SUMMARY | 2024-06-19 08:49 | XMS_ITS | Encounter Summary ---
Author Organization [facility] Address [address] [place] [id number] Care Team Providers Care Head Of Quality Name Role Phone Jaquan Conley MD Primary Care Provider + [phone] Reason for Visit * Reason Onset Date Comments Med Refill 10/23/2021 Encounter Details Date Type Department Care Team (Late st Contact Info) Description 10/23/2021 Refill [facility] Diabetes Education [address] [facility], [address] [place] [address] Rosamaria Purcell, CDE, RD [address] [facility] [address] [place] [address] Type 1 diabetes mellitus with [...] 11:00 AM EST Office Visit [facility] Endocrinology [address], [address] [place] [address] Erica Ventura PA [address] [place] [address] documented as of this encounter Visit Diagnoses Diagnosis 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
[2024-06-19 08:51] LABS: Microscopic, Urine URINE MICROSCOPIC (MICROSCOPIC)
[2024-06-19 09:26] LABS: Basophils % 0.6 % (0.1-2.0); Eosinophils % 1.3 % (0.1-12.0); Hematocrit 39.5 % (37.0-47.0); Hemoglobin 13.6 g/dL (12.2-16.2); Lymphocytes # 0.8 K/mm3 (0.7-4.5); Lymphocytes % 24.2 % (10-50); Mean Corpuscular HGB Conc 34.3 g/dL (31.8-35.4); Mean Corpuscular Hemoglobin 33.7 pg (27.0-31.2); Mean Corpuscular Volume 98.3 fl (81-99); Mean Platelet Volume 9.5 fl (7.4-10.4); Monocytes # 0.1 K/mm3 (0.1-1.0); Monocytes % 2.3 % (1.7-9.3); Neutrophils # 2.2 K/mm3 (1.8-7.8); Neutrophils % 71.6 % (37.0-80.0); Platelet Count 220 K/mm3 (142-424); Red Blood Count 4.02 M/mm3 (4.20-5.40); Red Cell Distribution Width 14.7 % (11.5-17.5); White Blood Count 3.1 K/mm3 (4.8-10.8)
[2024-06-19 09:28] LABS: Appearance,Urine CLEAR (Clear); Bilirubin,Urine Negative (Negative); Blood, Urine Negative (Negative); Color,Urine YELLOW (Yellow); Glucose,Urine (UA) Negative (Negative); Ketones,Urine Negative (Negative); Leukocyte Esterase,Urine Negative (Negative); Nitrate,Urine Negative (Negative); Protein,Urine Negative (Negative); Specific Gravity, Urine >= 1.030 (1.005-1.030); Urobilinogen,Urine 0.2 EU/dl (0.2)
[2024-06-19 10:09] LABS: Creatinine,Urine Random 287 mg/dL (Not Estab.); Total Protein,Urine Random < 5.0 mg/dL (0.0-12.0)
[2024-06-19 10:27] LABS: Bacteria,Urine 1+ /lpf; Mucus,Urine 1+ /lpf; Squamous Epithelial Cell,Urine 20-50 #/hpf (0-5); WBC,Urine Occasional #/hpf (0-3)
[2024-06-19 11:02] LABS: Alanine Aminotransferase 13 U/L (12-78); Albumin Level 4.5 g/dl (3.5-5.0); Alkaline Phosphatase 117 U/L (38-126); Aspartate Amino Transferase 16 U/L (14-36); Bilirubin,Total 0.6 mg/dl (0.2-1.3); Blood Urea Nitrogen 14 mg/dl (7-17); Calcium 10.3 mg/dl (8.4-10.2); Carbon Dioxide 20 mmol/L (22.0-30.0); Chloride 110 mmol/L (98-107); Chol/HDL Ratio 3.1 (1-3.5); Cholesterol 109 mg/dl (140-200); Estimated Glomerular Filt Rate 72 ml/min (>60); GFR (African American) 87 ML/MIN (>60); Globulin 2.3 g/dL (1.3-3.2); Glucose 150 mg/dl (74-100); HDL Cholesterol 35 mg/dl (40-60); Magnesium 1.5 mg/dl (1.6-2.3); Phosphorous 3.2 mg/dl (2.5-4.5); Sodium 141 mmol/L (136-145); Total Protein,Serum 6.8 g/dl (6.3-8.2); Triglycerides 125 mg/dl (30-150); VLDL Cholesterol 25 mg/dL (0-40)
[2024-06-19 11:13] LABS: Direct LDL Cholesterol 51.04 mg/dL (100-129)
[2024-06-21 12:15] LABS: BKV DNA, Quant PCR, Plasma Negative (Negative)
[2024-06-21 13:11] LABS: CMV Quant DNA PCR (Plasma) Negative (Negative)
== END 2024-06-19 23:59 | disposition home or self-care (01) ==
LOC: LAB 08:38
PROVIDERS: PCP Nurse Practitioner; Visit Provider Nurse Practitioner Family
DX: Z94.0 Kidney transplant status (principal); E11.8 Type 2 diabetes mellitus with unspecified complications; I10 Essential (primary) hypertension; Z01.89 Encounter for other specified special examinations; Z79.899 Other long term (current) drug therapy; E78.5 Hyperlipidemia, unspecified
CPT/HCPCS: 36415; 80053; 80061; 81001; 82570; 83735; 84100; 84156; 85025; 87497; 87799

== ENCOUNTER 2024-07-02 09:21 | Outpatient (CLI) | payer MEDICAID, SELFPAY ==
[2024-07-02 09:46] LABS: Microscopic, Urine URINE MICROSCOPIC (MICROSCOPIC)
[2024-07-02 10:05] LABS: Basophils % 0.9 % (0.1-2.0); Eosinophils % 1.3 % (0.1-12.0); Hematocrit 37.6 % (37.0-47.0); Hemoglobin 13.2 g/dL (12.2-16.2); Lymphocytes # 0.8 K/mm3 (0.7-4.5); Lymphocytes % 25.4 % (10-50); Mean Corpuscular HGB Conc 35.1 g/dL (31.8-35.4); Mean Corpuscular Hemoglobin 33.7 pg (27.0-31.2); Mean Corpuscular Volume 95.9 fl (81-99); Mean Platelet Volume 9.8 fl (7.4-10.4); Monocytes # 0.1 K/mm3 (0.1-1.0); Monocytes % 2.3 % (1.7-9.3); Neutrophils # 2.2 K/mm3 (1.8-7.8); Neutrophils % 70.1 % (37.0-80.0); Platelet Count 206 K/mm3 (142-424); Red Blood Count 3.92 M/mm3 (4.20-5.40); Red Cell Distribution Width 14.2 % (11.5-17.5); White Blood Count 3.1 K/mm3 (4.8-10.8)
[2024-07-02 10:36] LABS: Albumin Level 4.3 g/dl (3.5-5.0); Chloride 110 mmol/L (98-107); Potassium 4.6 mmoL/L (3.5-5.1); Sodium 136 mmol/L (136-145)
[2024-07-02 10:39] LABS: Alanine Aminotransferase 25 U/L (12-78); Albumin/Globulin Ratio 2.2 (1.1-1.8); Alkaline Phosphatase 98 U/L (38-126); Anion Gap 9.6 mEq/L (5-15); Aspartate Amino Transferase 23 U/L (14-36); Bilirubin,Total 0.5 mg/dl (0.2-1.3); Blood Urea Nitrogen 21 mg/dl (7-17); Calcium 9.6 mg/dl (8.4-10.2); Carbon Dioxide 21 mmol/L (22.0-30.0); Cholesterol 96 mg/dl (140-200); Estimated Glomerular Filt Rate 82 ml/min (>60); GFR (African American) 99 ML/MIN (>60); Glucose 144 mg/dl (74-100); Magnesium 1.7 mg/dl (1.6-2.3); Phosphorous 2.9 mg/dl (2.5-4.5); Total Protein,Serum 6.3 g/dl (6.3-8.2); Triglycerides 103 mg/dl (30-150); VLDL Cholesterol 21 mg/dL (0-40)
[2024-07-02 10:40] LABS: Chol/HDL Ratio 2.5 (1-3.5); HDL Cholesterol 39 mg/dl (40-60)
[2024-07-02 11:19] LABS: Appearance,Urine CLEAR (Clear); Blood, Urine Negative (Negative); Glucose,Urine (UA) Negative (Negative); Ketones,Urine Negative (Negative); Leukocyte Esterase,Urine Negative (Negative); Nitrate,Urine Negative (Negative); Protein,Urine Negative (Negative); Specific Gravity, Urine >= 1.030 (1.005-1.030); Urobilinogen,Urine 0.2 EU/dl (0.2)
[2024-07-02 11:28] LABS: Bilirubin,Urine 1+ (Negative); Color,Urine Dark Yellow (Yellow)
[2024-07-02 11:30] LABS: Creatinine,Urine Random 330 mg/dL (Not Estab.); Total Protein,Urine Random < 5.0 mg/dL (0.0-12.0)
[2024-07-02 12:00] LABS: Bacteria,Urine Trace /lpf
[2024-07-05 10:10] LABS: BKV DNA, Quant PCR, Plasma Negative (Negative)
== END 2024-07-02 23:59 | disposition home or self-care (01) ==
LOC: LAB 09:24
PROVIDERS: PCP Nurse Practitioner; Visit Provider Nurse Practitioner Family
DX: Z94.0 Kidney transplant status (principal); E11.8 Type 2 diabetes mellitus with unspecified complications; I10 Essential (primary) hypertension; Z01.89 Encounter for other specified special examinations; Z79.899 Other long term (current) drug therapy; E78.5 Hyperlipidemia, unspecified; Z72.0 Tobacco use; Z79.85 Long-term (current) use of injectable non-insulin antidiabetic drugs
CPT/HCPCS: 36415; 80053; 80061; 81001; 82570; 83735; 84100; 84156; 85025; 87799

== ENCOUNTER 2024-07-16 09:10 | Outpatient (CLI) | payer MEDICAID, SELFPAY ==
[2024-07-16 09:34] LABS: Basophils % 0.4 % (0.1-2.0); Eosinophils % 0.8 % (0.1-12.0); Hematocrit 38.5 % (37.0-47.0); Hemoglobin 13.4 g/dL (12.2-16.2); Lymphocytes # 0.7 K/mm3 (0.7-4.5); Lymphocytes % 30.2 % (10-50); Mean Corpuscular HGB Conc 34.8 g/dL (31.8-35.4); Mean Corpuscular Hemoglobin 34.1 pg (27.0-31.2); Mean Platelet Volume 12.6 fl (7.4-10.4); Monocytes # 0.1 K/mm3 (0.1-1.0); Monocytes % 2.4 % (1.7-9.3); Neutrophils # 1.6 K/mm3 (1.8-7.8); Neutrophils % 66.2 % (37.0-80.0); Platelet Count 160 K/mm3 (142-424); Red Blood Count 3.93 M/mm3 (4.20-5.40); Red Cell Distribution Width 12.3 % (11.5-17.5); White Blood Count 2.5 K/mm3 (4.8-10.8)
[2024-07-16 10:42] LABS: Albumin Level 4.7 g/dl (3.5-5.0); Chloride 111 mmol/L (98-107); Potassium 5.4 mmoL/L (3.5-5.1); Sodium 142 mmol/L (136-145)
[2024-07-16 10:45] LABS: Alanine Aminotransferase 20 U/L (12-78); Albumin/Globulin Ratio 2.1 (1.1-1.8); Alkaline Phosphatase 127 U/L (38-126); Anion Gap 18.4 mEq/L (5-15); Aspartate Amino Transferase 22 U/L (14-36); Bilirubin,Total 0.8 mg/dl (0.2-1.3); Blood Urea Nitrogen 19 mg/dl (7-17); Calcium 10.3 mg/dl (8.4-10.2); Carbon Dioxide 18 mmol/L (22.0-30.0); Cholesterol 113 mg/dl (140-200); Estimated Glomerular Filt Rate 57 ml/min (>60); GFR (African American) 69 ML/MIN (>60); Globulin 2.2 g/dL (1.3-3.2); Glucose 111 mg/dl (74-100); Phosphorous 3.7 mg/dl (2.5-4.5); Total Protein,Serum 6.9 g/dl (6.3-8.2); Triglycerides 122 mg/dl (30-150); VLDL Cholesterol 24 mg/dL (0-40)
[2024-07-16 10:46] LABS: Chol/HDL Ratio 3.1 (1-3.5); HDL Cholesterol 37 mg/dl (40-60); Magnesium 1.8 mg/dl (1.6-2.3)
[2024-07-16 10:57] LABS: Direct LDL Cholesterol 50.21 mg/dL (100-129)
[2024-07-18 15:48] LABS: BKV DNA, Quant PCR, Plasma Negative (Negative)
[2024-07-18 17:18] LABS: CMV Quant DNA PCR (Plasma) Negative (Negative)
[2024-07-19 12:18] LABS: Tacrolimus (FK506), Blood 11.3 ng/mL (2.0-20.0)
== END 2024-07-16 23:59 | disposition home or self-care (01) ==
PROVIDERS: PCP Nurse Practitioner; Visit Provider Nurse Practitioner Family
DX: Z01.89 Encounter for other specified special examinations (principal); Z94.0 Kidney transplant status; I10 Essential (primary) hypertension; Z79.899 Other long term (current) drug therapy; E78.5 Hyperlipidemia, unspecified; E10.8 Type 1 diabetes mellitus with unspecified complications; Z79.85 Long-term (current) use of injectable non-insulin antidiabetic drugs; Z79.4 Long term (current) use of insulin; F17.200 Nicotine dependence, unspecified, uncomplicated
CPT/HCPCS: 36415; 80053; 80061; 80197; 83735; 84100; 85025; 87497; 87799

== ENCOUNTER 2024-08-16 07:48 | Outpatient (CLI) | payer MEDICAID, SELFPAY ==
[2024-08-16 08:12] LABS: Basophils % 0.5 % (0.1-2.0); Eosinophils % 1.5 % (0.1-12.0); Hematocrit 37.2 % (37.0-47.0); Hemoglobin 12.6 g/dL (12.2-16.2); Lymphocytes # 0.5 K/mm3 (0.7-4.5); Lymphocytes % 26.3 % (10-50); Mean Corpuscular HGB Conc 33.9 g/dL (31.8-35.4); Mean Corpuscular Hemoglobin 33.8 pg (27.0-31.2); Mean Corpuscular Volume 99.7 fl (81-99); Mean Platelet Volume 11.8 fl (7.4-10.4); Monocytes # 0.5 K/mm3 (0.1-1.0); Neutrophils % 48.7 % (37.0-80.0); Platelet Count 168 K/mm3 (142-424); Red Blood Count 3.73 M/mm3 (4.20-5.40); Red Cell Distribution Width 11.8 % (11.5-17.5); White Blood Count 2.1 K/mm3 (4.8-10.8)
[2024-08-16 08:17] LABS: MANUAL DIFFERENTIAL MANUAL DIFFERENTIAL (MANUAL DIFF)
[2024-08-16 09:03] LABS: Eosinophils % 2 % (0-3); Lymphocytes % 37 % (10-50); Monocytes % 7 % (2-9); Neutrophils % 54 % (42-76); Platelet Estimate Normal; RBC Morphology Normal; Total Cells Counted 100
[2024-08-16 09:28] LABS: Alanine Aminotransferase 39 U/L (12-78); Albumin Level 4.4 g/dl (3.5-5.0); Albumin/Globulin Ratio 2.1 (1.1-1.8); Alkaline Phosphatase 90 U/L (38-126); Anion Gap 13.1 mEq/L (5-15); Aspartate Amino Transferase 38 U/L (14-36); Bilirubin,Total 0.6 mg/dl (0.2-1.3); Blood Urea Nitrogen 15 mg/dl (7-17); Calcium 10.3 mg/dl (8.4-10.2); Carbon Dioxide 22 mmol/L (22.0-30.0); Chloride 111 mmol/L (98-107); Estimated Glomerular Filt Rate 96 ml/min (>60); GFR (African American) 116 ML/MIN (>60); Globulin 2.1 g/dL (1.3-3.2); Glucose 96 mg/dl (74-100); Magnesium 1.7 mg/dl (1.6-2.3); Phosphorous 3.2 mg/dl (2.5-4.5); Potassium 5.1 mmoL/L (3.5-5.1); Sodium 141 mmol/L (136-145); Total Protein,Serum 6.5 g/dl (6.3-8.2)
[2024-08-19 16:27] LABS: Tacrolimus (FK506), Blood 5.7 ng/mL (2.0-20.0)
== END 2024-08-16 23:59 | disposition home or self-care (01) ==
LOC: LAB 07:56
PROVIDERS: Visit Provider Nurse Practitioner Family
DX: Z94.0 Kidney transplant status (principal); E11.8 Type 2 diabetes mellitus with unspecified complications; I10 Essential (primary) hypertension; Z01.89 Encounter for other specified special examinations; Z79.899 Other long term (current) drug therapy; E78.5 Hyperlipidemia, unspecified
CPT/HCPCS: 36415; 80053; 80197; 83735; 84100; 85007; 85025; 85027

== ENCOUNTER 2024-08-30 08:06 | Outpatient (CLI) | payer MEDICAID, SELFPAY ==
[2024-08-30 08:18] LABS: Microscopic, Urine URINE MICROSCOPIC (MICROSCOPIC)
[2024-08-30 08:36] LABS: Basophils % 0.3 % (0.1-2.0); Eosinophils % 1.3 % (0.1-12.0); Hemoglobin 12.3 g/dL (12.2-16.2); Lymphocytes # 0.7 K/mm3 (0.7-4.5); Lymphocytes % 21.9 % (10-50); Mean Corpuscular HGB Conc 34.2 g/dL (31.8-35.4); Mean Corpuscular Hemoglobin 33.2 pg (27.0-31.2); Mean Corpuscular Volume 97.3 fl (81-99); Mean Platelet Volume 12.4 fl (7.4-10.4); Monocytes # 0.4 K/mm3 (0.1-1.0); Monocytes % 13.4 % (1.7-9.3); Neutrophils % 62.8 % (37.0-80.0); Platelet Count 144 K/mm3 (142-424); Red Cell Distribution Width 11.1 % (11.5-17.5); White Blood Count 3.2 K/mm3 (4.8-10.8)
[2024-08-30 08:40] LABS: Appearance,Urine CLEAR (Clear); Bilirubin,Urine Negative (Negative); Blood, Urine Negative (Negative); Color,Urine YELLOW (Yellow); Glucose,Urine (UA) Negative (Negative); Ketones,Urine Negative (Negative); Leukocyte Esterase,Urine Negative (Negative); Nitrate,Urine Negative (Negative); PH,Urine 6.5 (5.0-8.5); Protein,Urine Negative (Negative); Specific Gravity, Urine 1.025 (1.005-1.030); Urobilinogen,Urine 0.2 EU/dl (0.2)
[2024-08-30 09:08] LABS: Alanine Aminotransferase 31 U/L (12-78); Albumin Level 4.3 g/dl (3.5-5.0); Albumin/Globulin Ratio 2.3 (1.1-1.8); Alkaline Phosphatase 93 U/L (38-126); Anion Gap 15.7 mEq/L (5-15); Aspartate Amino Transferase 25 U/L (14-36); Bilirubin,Total 0.7 mg/dl (0.2-1.3); Blood Urea Nitrogen 11 mg/dl (7-17); Carbon Dioxide 23 mmol/L (22.0-30.0); Chloride 107 mmol/L (98-107); Chol/HDL Ratio 2.8 (1-3.5); Cholesterol 99 mg/dl (140-200); Estimated Glomerular Filt Rate 95 ml/min (>60); GFR (African American) 115 ML/MIN (>60); Globulin 1.9 g/dL (1.3-3.2); Glucose 116 mg/dl (74-100); HDL Cholesterol 36 mg/dl (40-60); Magnesium 1.5 mg/dl (1.6-2.3); Phosphorous 2.7 mg/dl (2.5-4.5); Potassium 4.7 mmoL/L (3.5-5.1); Sodium 141 mmol/L (136-145); Total Protein,Serum 6.2 g/dl (6.3-8.2); Triglycerides 103 mg/dl (30-150); VLDL Cholesterol 21 mg/dL (0-40)
[2024-08-30 09:18] LABS: Direct LDL Cholesterol 36.02 mg/dL (100-129)
[2024-08-30 09:19] LABS: Creatinine,Urine Random 218 mg/dL (Not Estab.); Total Protein,Urine Random < 5.0 mg/dL (0.0-12.0)
[2024-08-30 09:58] LABS: Bacteria,Urine Trace /lpf; Calcium Oxalate Crystals,Urine Trace /lpf
[2024-09-01 12:14] LABS: BKV DNA, Quant PCR, Plasma Negative (Negative)
[2024-09-01 14:13] LABS: CMV Quant DNA PCR (Plasma) Positive < 200 IU/mL (Negative)
[2024-09-02 21:28] LABS: Tacrolimus (FK506), Blood 4.3 ng/mL (5.0-20.0)
== END 2024-08-30 23:59 | disposition home or self-care (01) ==
LOC: LAB 08:07
PROVIDERS: PCP Nurse Practitioner; Visit Provider Nurse Practitioner Family
DX: Z01.89 Encounter for other specified special examinations (principal); Z94.0 Kidney transplant status; E11.8 Type 2 diabetes mellitus with unspecified complications; Z79.899 Other long term (current) drug therapy; I10 Essential (primary) hypertension; E78.5 Hyperlipidemia, unspecified
CPT/HCPCS: 36415; 80053; 80061; 80197; 81001; 82570; 83735; 84100; 84156; 85025; 87497; 87799

== ENCOUNTER 2024-09-08 10:22 | Emergency (ER) | payer MEDICAID, SELFPAY ==
--- NOTE | 2024-09-08 10:32 | ECG_ITS ---
APPROVED REPORT Exam: Resting ECG HR:89 bpm ECG Measurements Heart Rate 89 AXES [place] 151 P 79 QRSd 88 QRS 93 QT 339 T 51 QTc 385 Conclusion Sinus rhythm Electronically signed by : YAMILKA RAY, 09/08/2024 13:17:02
--- NOTE | 2024-09-08 10:39 | HMH.EDGENADL ---
Discharge Plan Disposition Patient Disposition: Home, Self-Care Prescriptions Prescriptions: New methocarbamol 750 mg tablet 1,500 mg PO TID 5 Days Qty: 30 0RF lidocaine 5 % adhesive patch,medicated 1 patch topical DAILY Qty: 30 0RF Rx Instructions: leave on most painful area for up to 12 hrs No Action (DME) OneTouch Ultra Test Strip See Rx Instructions .ROUTE .MEDSUPPLY Qty: 10 Patient Comments: USE 1 STRIP TO CHECK GLUCOSE THREE TIMES DAILY Rx Instructions: As directed atorvastatin 40 mg tablet 40 mg PO DAILY (DME) insulin syringe-needle U-100 [BD Insulin Syringe Ultra-Fine] 0.5 mL 31 gauge x 5/16 syringe See Rx Instructions .ROUTE .MEDSUPPLY Qty: 10 Patient Comments: USE DIRECTED TO INJECT INSULIN 4 PLUS TIMES DAILY IN EVENT OF PUMP FAILURE Rx Instructions: As directed (DME) blood-glucose meter [OneTouch Verio Flex meter] [facility] [place] Rx Instructions .ROUTE .MEDSUPPLY Qty: 1 Rx Instructions: As directed Ozempic 0.25 mg or 0.5 mg (2 mg/3 mL) pen injector 0.25 mg SQ WEEKLY Patient Comments: INJECT 0.25 MG SUBCUTANEOUSLY ONCE A WEEK FOR 4 WEEKS, THEN INCREASE TO 0.5 MG ONCE A WEEK UNTIL YOU RETURN TO CLINIC valganciclovir 450 mg tablet 450 mg PO DAILY midodrine 5 mg tablet 5 mg PO TID Patient Comments: TAKE 1 TABLET BY MOUTH THREE TIMES DAILY mycophenolate mofetil 500 mg tablet 500 mg PO DAILY magnesium oxide 400 mg (241.3 mg magnesium) tablet 400 mg PO DAILY sodium bicarbonate 650 mg tablet 650 mg PO TID Patient Comments: TAKE 1 TABLET BY MOUTH THREE TIMES DAILY pantoprazole 40 mg tablet,delayed release (DR/EC) 40 mg PO DAILY Patient Comments: TAKE 1 TABLET BY MOUTH ONCE DAILY ergocalciferol (vitamin D2) 1,250 mcg (50,000 unit) capsule 1,250 mcg PO WEEKLY Patient Comments: TAKE 1 CAPSULE BY MOUTH ONCE A WEEK fludrocortisone 0.1 mg tablet 0.1 mg PO DAILY tacrolimus 0.5 mg capsule 0.5 mg PO DAILY Referrals Follow up/Referrals: Maria A Soria APRN [Primary Care Provider] - See instructions Activity Restrictions/Add. Instructions Additional Instructions/Restrictions: Follow-up with your family doctor as needed for this visit to the emergency department. Also touch base with your art instructor. Robaxin and lidocaine patches as needed. Clinical Impressions Clinical Impression: Acute viral syndrome, Acute pain of left shoulder Print Language Print Language: Citizen Of [place] Discharge ED Provider: Yaakov Fisher General Adult HPI General Chief complaint: Extremity Injury, Upper Stated complaint: cough congestion sore throat head ache ba Time Seen by Provider: 09/08/24 10:37 History of Present Illness HPI narrative: Please note that above description of symptoms, in this electronic medical record under categorization of recalled from ER triage doctor by RN are reflective of an initial nursing assessment, however, is not reflective of my full history and physical exam that was personally taken and clarified. Consequentially, this preceding description of symptoms, which may include the patient's categorized chief complaint in the EMR, do not reflect my personal clinical impression, and the ultimate description of history of present illness and patient stated complaints should be deferred to this section of the note. Unless stated otherwise or congruent with this section of the note, additional signs, symptoms, or incongruence should be interpreted as inaccurate with my clinical impression. Related Data Home Medications ?Medication ?Instructions ?Recorded ?Confirmed atorvastatin 40 mg tablet 40 mg PO DAILY 03/09/24 09/08/24 blood sugar diagnostic (OneTouch #10 ea 03/09/24 09/08/24 Ultra Test strips) blood-glucose meter (OneTouch #1 ea 03/09/24 09/08/24 Verio Flex Meter) insulin syringe-needle U-100 0.5 #10 ea 03/09/24 09/08/24 mL 31 gauge x 5/16 (BD Insulin Syringe Ultra-Fine) semaglutide 0.25 mg or 0.5 mg (2 0.25 mg SQ WEEKLY 03/09/24 09/08/24 mg/3 mL) subcutaneous pen injector (VidBid) ergocalciferol (vitamin D2) 1,250 1,250 mcg PO WEEKLY 09/08/24 09/08/24 mcg (50,000 unit) capsule fludrocortisone 0.1 mg tablet 0.1 mg PO DAILY 09/08/24 09/08/24 magnesium oxide 400 mg (241.3 mg 400 mg PO DAILY 09/08/24 09/08/24 magnesium) tablet midodrine 5 mg tablet 5 mg PO TID 09/08/24 09/08/24 mycophenolate mofetil 500 mg tablet 500 mg PO DAILY 09/08/24 09/08/24 pantoprazole 40 mg tablet,delayed 40 mg PO DAILY 09/08/24 09/08/24 release sodium bicarbonate 650 mg tablet 650 mg PO TID 09/08/24 09/08/24 tacrolimus 0.5 mg capsule, 0.5 mg PO DAILY 09/08/24 09/08/24 immediate-release valganciclovir 450 mg tablet 450 mg PO DAILY 09/08/24 09/08/24 Previous Rx's ?Medication ?Instructions ?Recorded lidocaine 5 % topical patch 1 patch topical DAILY #30 ea 09/08/24 methocarbamol 750 mg tablet 1,500 mg (2 x 750 mg) PO TID 5 09/08/24 days #30 tabs Allergies Allergy/AdvReac Type Severity Reaction Status Date / Time NSAIDS (Non-Steroidal Allergy Other Verified 09/08/24 10:57 Anti-Inflamma [facility] Disclaimer: The information contained in this section may have been updated after the patient was seen, as this information can be updated by other users. 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 End stage renal disease Hypertension Seasonal allergies Diabetes type 1, uncontrolled Surgical History History of D&C History of delivery H/O tubal ligation H/O gastric sleeve Family History Grandmother Cancer Mother Cancer Social History Smoking Status: Never smoker alcohol intake: former substance use type: denies use current occupational status: disabled Travel in the last 8 weeks: None Have you lived/traveled outside US in past 30 days?: No Contact w/someone who lives/traveled outside US past 30 days?: No Exposure to someone with infectious disease in past 14 days?: No Do you have a fever (greater than 100.4 F or 38 C)?: No Have you tested positive for COVID-19: No Exposed to someone with COVID-19 in past 14 days?: No Do you have a sore throat?: Yes Do you have a cough?: Yes Do you have any weakness?: No Do you have any diarrhea?: No Are you experiencing any unusual bleeding?: No Do you have any muscle aches/pain?: Yes Do you have any abdominal pain?: No Are you experiencing loss of taste or smell?: No ROS Obtained: Yes All systems reviewed & no additional complaints except as documented Physical Exam General General appearance: alert Head Head exam: atraumatic and normocephalic Eye Eye exam: Present normal appearance, PERRL and EOMI Neck Neck exam: Present normal inspection, full ROM and trachea midline Respiratory Respiratory exam: Absent respiratory distress, wheezes, stridor, accessory muscle use or prolonged expiratory phase Cardiovascular Cardiovascular exam: Present other (Pulses equal symmetric in upper and lower extremities) Abdominal Exam Abdominal exam: Present soft; Absent distention, tenderness or pulsatile mass Extremities Exam Extremities exam: Absent edema Neurological Exam Neurological exam: Present alert, oriented X3 and CN II-XII intact; Absent motor sensory deficit Skin Skin exam: Present warm and dry; Absent diaphoresis or erythema Medical Decision Making Medical Records Medical records reviewed: Yes I reviewed the patient's medical records. Screening: Per USPSTF and CDC recommendations, given the prevalence of disease in our region, it is our hospital?s policy to screen for HIV and viral Hepatitis for all patients aged 18 and over and those with ongoing risk factors. Riaz Inquiry Pt receiving controlled substance: No Riaz was queried for this patient: No Vital Signs: 09/08/24 10:41 Temperature 98.2 F Temperature Source Oral Pulse Rate [Right] 92 H Respiratory Rate 18 Blood Pressure [Left Arm] 117/78 Blood Pressure Mean [Left Arm] 91 Blood Pressure Source [Left Arm] Automatic Cuff Blood Pressure Position [Left Arm] Sitting 02 Sat by Pulse Oximetry 100 Oxygen Delivery Method Room Air Lab Data Lab Results 09/08/24 10:39: SARS-CoV-2 (PCR) Not detected, Influenza A Untype (PCR) Not detected, Influenza Type B (PCR) Not detected Orders (Tests/Meds): ED MEDICATIONS Discontinued Medications Generic Name Dose Route Start Last Admin Trade Name Freq PRN Reason Stop Dose Admin Lidocaine 1 each 09/08/24 11:13 09/08/24 11:50 Lidocaine 5% Transdermal Patch TP 09/08/24 11:14 1 each ONCE ONE Administration Methocarbamol 1,500 mg 09/08/24 12:11 09/08/24 12:16 Methocarbamol 500mg Tablet PO 09/08/24 12:12 1,500 mg ONCE ONE Administration ORDERS Category Date Time Status Shoulder XR left minimum 2 views [XR shoulder LT min 2V Exams 09/08/24 11:15 Completed ] Stat HIV Combo Routine Lab 09/08/24 10:53 Ordered Hepatitis C Ab Qual. W/ RFX Routine Lab 09/08/24 10:53 Ordered Rapid PCR Covid and Flu A/B Stat Lab 09/08/24 10:39 Completed Medical Decision Narrative: 34-year-old female presenting with left shoulder pain and viral syndrome. History of kidney transplant secondary to ESRD due to hypertension diabetes and obesity. States that she has been having cough, congestion, sore throat, body aches, etc. for the last couple of days. Not worried about this. What she is most worried about is her left shoulder pain. States that yesterday on 09/07 she raised her left arm above and behind her head and a stretching sort of motion and felt a pop anteriorly on her shoulder. Has been taking Tylenol, but cannot take Motrin due to kidney transplant. Mild in intensity, made worse to moderate to severe in intensity with certain movements. Called transplant team and they recommended she come to [facility] for further evaluation. History obtained with patient. On arrival, very clinically well-appearing. Shoulders neurovascularly intact, range of motion is intact, but obviously tender. She is most tender to palpation anteriorly medial to the bicipital groove. Provocative testing demonstrates that internal rotation is most tender, external rotation mildly tender and no tenderness with flexion or extension of elbows. Shoulder abduction also moderately tender. Differential includes sprain, strain, impingement syndrome, among others in addition to viral syndrome. Swab obtained, patient given lidocaine patch. X-rays to be obtained out of abundance of caution. On independent interpretation no acute bony abnormality or evidence of calcific tendinosis or other acute abnormality. Because patient at baseline without signs or symptoms of clinical decompensation, deemed appropriate for discharge. Results were relayed to patient who voiced understanding and were agreeable to outpatient management and follow up. States that her shoulder has not improved much, but does not feel that the lidocaine patches have had time to work. States that she used to be on muscle relaxers when things like this happen. She was given Robaxin and I feel this is appropriate. Robaxin and lidocaine patches sent to the pharmacy. I discussed my clinical impression with patient and answered all questions. At this time, the evidence for any other entities in the differential is insufficient to warrant any further testing or ED observation. This was explained as well. Advisory was given that persistent or worsening symptoms require further evaluation. I confirmed the understanding of this discussion. Continuous Absorption Process Operator disclaimer Much of this encounter note is an electronic orchestra teacher spoken language to printed text. Electronic orchestra teacher of the spoken language may permit errors. Although I have reviewed the note, some errors may still exist. Critical Care Critical Care Time Critical Care Time: No
[2024-09-08 10:41] VITALS: BP 117/78; PULSE 92; RESP 18; TEMP 36.8; O2SAT 100; BMI 24.5
[2024-09-08 10:43] LABS: Coronavirus 19, PCR Not Detected (NotDetected); Influenza A, PCR Not Detected (NotDetected); Influenza B, PCR Not Detected (NotDetected)
--- NOTE | 2024-09-08 10:58 | PC.NURSE ---
1035- Patient in chair, awaiting ED provider assessment. Patient expresses no needs at this time. COVID swab collected and sent for analysis by EDT. EKG completed at [address] Fisher. Awaiting evaluation and orders.
--- NOTE | 2024-09-08 11:15 | XR_ITS ---
PROCEDURE INFORMATION: Exam: XR Left Shoulder Exam date and time: 09/08/2024 11:13 AM Age: 34 years old Clinical indication: Pain; Shoulder; Left; Additional info: Left shoulder pain anteriorly, popping sound TECHNIQUE: Imaging protocol: Radiologic exam of the left shoulder. Views: 2 or more views. COMPARISON: CR XR SHOULDER LT MIN 2V 11/29/2023 8:10 AM FINDINGS: Bones/joints: Osseous structures are intact. No fracture or malalignment. Joint surfaces are preserved. Soft tissues: Normal. IMPRESSION: No acute bony abnormalities.
--- NOTE | 2024-09-08 11:20 | PC.NURSE ---
1120- Hourly rounding complete, patient expresses no needs at this time. Awaiting radiology. Will apply lidocaine patch after XR. 1122- Patient to radiology via wheelchair.
[2024-09-08] MEDS: LIDOCAINE 5% TRANSDERMAL PATCH 1 EACH TP (11:50)
--- NOTE | 2024-09-08 11:50 | PC.NURSE ---
1150- Lidocaine patch placed to left shoulder, patient instructed to remove in 12 hours. Hourly rounding completed, no needs expressed at this time. A & O x 4.
[2024-09-08] MEDS: METHOCARBAMOL 500MG TABLET 1500 MG PO (12:16)
--- NOTE | 2024-09-08 12:28 | PC.NURSE ---
ROUNDED ON THE PT. THE PT VOICES THAT SHE DOES NOT NEED ANYTHING AT THIS TIME. CALL LIGHT IS WITHIN REACH OF THE PT.
[2024-09-08 12:32] VITALS: BP 113/94; PULSE 53; RESP 16; TEMP 37.1; O2SAT 100
== END 2024-09-08 12:42 | disposition home or self-care (01) ==
PROVIDERS: Emergency Provider Emergency Medicine; PCP Nurse Practitioner
DX: B34.9 Viral infection, unspecified (principal); M25.512 Pain in left shoulder; R05.9 Cough, unspecified; R09.81 Nasal congestion; R51.9 Headache, unspecified; J02.9 Acute pharyngitis, unspecified; M54.9 Dorsalgia, unspecified
CPT/HCPCS: 73030; 87636; 93005; 99283

== ENCOUNTER 2024-09-11 07:53 | Outpatient (CLI) | payer MEDICAID, SELFPAY ==
[2024-09-11 08:30] LABS: Basophils % 0.3 % (0.1-2.0); Eosinophils # 0.1 K/mm3 (0.0-0.4); Eosinophils % 1.8 % (0.1-12.0); Hematocrit 37.2 % (37.0-47.0); Hemoglobin 12.7 g/dL (12.2-16.2); Lymphocytes # 0.8 K/mm3 (0.7-4.5); Lymphocytes % 19.7 % (10-50); Mean Corpuscular HGB Conc 34.1 g/dL (31.8-35.4); Mean Corpuscular Hemoglobin 32.7 pg (27.0-31.2); Mean Corpuscular Volume 95.9 fl (81-99); Mean Platelet Volume 12.5 fl (7.4-10.4); Monocytes # 0.4 K/mm3 (0.1-1.0); Monocytes % 8.9 % (1.7-9.3); Neutrophils # 2.7 K/mm3 (1.8-7.8); Neutrophils % 68.8 % (37.0-80.0); Platelet Count 156 K/mm3 (142-424); Red Blood Count 3.88 M/mm3 (4.20-5.40); Red Cell Distribution Width 10.9 % (11.5-17.5)
[2024-09-11 09:54] LABS: Albumin Level 4.2 g/dl (3.5-5.0); Chloride 110 mmol/L (98-107); Sodium 140 mmol/L (136-145)
[2024-09-11 09:56] LABS: Blood Urea Nitrogen 14 mg/dl (7-17); Estimated Glomerular Filt Rate 82 ml/min (>60); GFR (African American) 99 ML/MIN (>60)
[2024-09-11 09:57] LABS: Alanine Aminotransferase 20 U/L (12-78); Alkaline Phosphatase 92 U/L (38-126); Aspartate Amino Transferase 21 U/L (14-36); Bilirubin,Total 0.6 mg/dl (0.2-1.3); Calcium 9.7 mg/dl (8.4-10.2); Carbon Dioxide 21 mmol/L (22.0-30.0); Globulin 2.1 g/dL (1.3-3.2); Glucose 128 mg/dl (74-100); Magnesium 1.7 mg/dl (1.6-2.3); Phosphorous 3.2 mg/dl (2.5-4.5); Total Protein,Serum 6.3 g/dl (6.3-8.2)
[2024-09-14 19:23] LABS: Tacrolimus (FK506), Blood 4.1 ng/mL (5.0-20.0)
== END 2024-09-11 23:59 | disposition home or self-care (01) ==
LOC: LAB 07:55
PROVIDERS: PCP Nurse Practitioner; Visit Provider Nurse Practitioner Family
DX: I10 Essential (primary) hypertension (principal); E78.5 Hyperlipidemia, unspecified; E11.8 Type 2 diabetes mellitus with unspecified complications; Z94.0 Kidney transplant status; Z79.899 Other long term (current) drug therapy
CPT/HCPCS: 36415; 80053; 80197; 83735; 84100; 85025

== ENCOUNTER 2024-10-25 09:51 | Outpatient (CLI) | payer MEDICAID, SELFPAY ==
[2024-10-25 10:14] LABS: Basophils % 0.3 % (0.1-2.0); Eosinophils % 1.3 % (0.1-12.0); Hematocrit 37.2 % (37.0-47.0); Hemoglobin 12.5 g/dL (12.2-16.2); Lymphocytes # 0.9 K/mm3 (0.7-4.5); Lymphocytes % 27.4 % (10-50); Mean Corpuscular HGB Conc 33.6 g/dL (31.8-35.4); Mean Corpuscular Hemoglobin 31.1 pg (27.0-31.2); Mean Corpuscular Volume 92.5 fl (81-99); Mean Platelet Volume 11.9 fl (7.4-10.4); Monocytes # 0.3 K/mm3 (0.1-1.0); Neutrophils # 1.9 K/mm3 (1.8-7.8); Neutrophils % 59.7 % (37.0-80.0); Nucleated Red Blood Cells # 0 10^3/uL; Nucleated Red Blood Cells % 0 %; Platelet Count 166 K/mm3 (142-424); Red Blood Count 4.02 M/mm3 (4.20-5.40); Red Cell Distribution Width 11.8 % (11.5-17.5); Red Cell Distribution Width-SD 40.2 fL; White Blood Count 3.1 K/mm3 (4.8-10.8)
[2024-10-25 10:48] LABS: Albumin Level 4.4 g/dl (3.5-5.0); Chloride 110 mmol/L (98-107); Potassium 5.2 mmoL/L (3.5-5.1); Sodium 140 mmol/L (136-145)
[2024-10-25 10:51] LABS: Alanine Aminotransferase 25 U/L (12-78); Albumin/Globulin Ratio 1.9 (1.1-1.8); Alkaline Phosphatase 97 U/L (38-126); Anion Gap 14.2 mEq/L (5-15); Aspartate Amino Transferase 22 U/L (14-36); Bilirubin,Total 0.5 mg/dl (0.2-1.3); Blood Urea Nitrogen 16 mg/dl (7-17); Calcium 10.3 mg/dl (8.4-10.2); Carbon Dioxide 21 mmol/L (22.0-30.0); Cholesterol 103 mg/dl (140-200); Estimated Glomerular Filt Rate 95 ml/min (>60); GFR (African American) 115 ML/MIN (>60); Globulin 2.3 g/dL (1.3-3.2); Glucose 131 mg/dl (74-100); Phosphorous 3.6 mg/dl (2.5-4.5); Total Protein,Serum 6.7 g/dl (6.3-8.2); Triglycerides 89 mg/dl (30-150); VLDL Cholesterol 18 mg/dL (0-40)
[2024-10-25 10:52] LABS: Chol/HDL Ratio 2.3 (1-3.5); HDL Cholesterol 45 mg/dl (40-60); Magnesium 1.4 mg/dl (1.6-2.3)
[2024-10-25 11:02] LABS: Direct LDL Cholesterol 38.38 mg/dL (100-129)
[2024-10-25 16:29] LABS: Microscopic, Urine URINE MICROSCOPIC (MICROSCOPIC)
[2024-10-25 17:15] LABS: Appearance,Urine CLEAR (Clear); Bilirubin,Urine Negative (Negative); Blood, Urine Negative (Negative); Color,Urine YELLOW (Yellow); Glucose,Urine (UA) Negative (Negative); Ketones,Urine Negative (Negative); Leukocyte Esterase,Urine Negative (Negative); Nitrate,Urine Negative (Negative); Protein,Urine Negative (Negative); Specific Gravity, Urine 1.025 (1.005-1.030); Urobilinogen,Urine 0.2 EU/dl (0.2)
[2024-10-25 17:33] LABS: Creatinine,Urine Random 183 mg/dL (Not Estab.); Total Protein,Urine Random < 5.0 mg/dL (0.0-12.0)
[2024-10-25 18:20] LABS: Bacteria,Urine 3+ /lpf
[2024-10-27 14:14] LABS: BKV DNA, Quant PCR, Plasma Negative (Negative); CMV Quant DNA PCR (Plasma) Negative (Negative)
[2024-10-29 23:31] LABS: Tacrolimus (FK506), Blood 6.8 ng/mL (5.0-20.0)
== END 2024-10-25 23:59 | disposition home or self-care (01) ==
PROVIDERS: Internal Medicine Nephrology; PCP Nurse Practitioner; Visit Provider Nurse Practitioner Family
DX: E11.8 Type 2 diabetes mellitus with unspecified complications (principal); I10 Essential (primary) hypertension; E78.5 Hyperlipidemia, unspecified; Z79.899 Other long term (current) drug therapy; Z94.0 Kidney transplant status
CPT/HCPCS: 36415; 80053; 80061; 80197; 81001; 82570; 83735; 84100; 84156; 85025; 87086; 87497; 87799

== ENCOUNTER 2024-11-13 07:47 | Outpatient (CLI) | payer MEDICAID, SELFPAY ==
[2024-11-13 08:24] LABS: Basophils % 0.3 % (0.1-2.0); Hematocrit 38.5 % (37.0-47.0); Hemoglobin 12.7 g/dL (12.2-16.2); Lymphocytes # 0.9 K/mm3 (0.7-4.5); Lymphocytes % 30.4 % (10-50); Mean Corpuscular Hemoglobin 30.3 pg (27.0-31.2); Mean Corpuscular Volume 91.9 fl (81-99); Mean Platelet Volume 12.3 fl (7.4-10.4); Monocytes # 0.3 K/mm3 (0.1-1.0); Monocytes % 10.2 % (1.7-9.3); Neutrophils # 1.8 K/mm3 (1.8-7.8); Neutrophils % 57.8 % (37.0-80.0); Nucleated Red Blood Cells # 0 10^3/uL; Nucleated Red Blood Cells % 0 %; Platelet Count 184 K/mm3 (142-424); Red Blood Count 4.19 M/mm3 (4.20-5.40); Red Cell Distribution Width 11.8 % (11.5-17.5); Red Cell Distribution Width-SD 39.6 fL
[2024-11-13 09:04] LABS: Albumin Level 4.4 g/dl (3.5-5.0); Anion Gap 12.1 mEq/L (5-15); Blood Urea Nitrogen 21 mg/dl (7-17); Calcium 9.9 mg/dl (8.4-10.2); Carbon Dioxide 22 mmol/L (22.0-30.0); Chloride 112 mmol/L (98-107); Estimated Glomerular Filt Rate 71 ml/min (>60); GFR (African American) 86 ML/MIN (>60); Glucose 105 mg/dl (74-100); Phosphorous 3.7 mg/dl (2.5-4.5); Potassium 5.1 mmoL/L (3.5-5.1); Sodium 141 mmol/L (136-145)
[2024-11-13 14:49] LABS: Microscopic, Urine URINE MICROSCOPIC (MICROSCOPIC)
[2024-11-13 15:19] LABS: Appearance,Urine CLOUDY (Clear); Blood, Urine TRACE-L (Negative); Color,Urine YELLOW (Yellow); Glucose,Urine (UA) TRACE (Negative); Ketones,Urine TRACE (Negative); Leukocyte Esterase,Urine Negative (Negative); Nitrate,Urine Negative (Negative); PH,Urine 5.5 (5.0-8.5); Protein,Urine Negative (Negative); Specific Gravity, Urine >= 1.030 (1.005-1.030); Urobilinogen,Urine 0.2 EU/dl (0.2)
[2024-11-13 15:22] LABS: Bilirubin,Urine Negative (Negative)
[2024-11-13 16:01] LABS: Amorphous Sediment,Urine 4+ /lpf; Bacteria,Urine 2+ /lpf; RBC,Urine Occasional #/hpf (0-3); WBC,Urine Occasional #/hpf (0-3)
== END 2024-11-13 23:59 | disposition home or self-care (01) ==
PROVIDERS: PCP Nurse Practitioner; Visit Provider Internal Medicine Nephrology
DX: N18.5 Chronic kidney disease, stage 5 (principal)
CPT/HCPCS: 80069; 81001; 85025; 87086; 87088; 87186

== ENCOUNTER 2024-11-29 08:18 | Outpatient (CLI) | payer MEDICAID, SELFPAY ==
[2024-11-29 08:26] LABS: Microscopic, Urine URINE MICROSCOPIC (MICROSCOPIC)
[2024-11-29 09:01] LABS: Basophils % 0.3 % (0.1-2.0); Hematocrit 38.6 % (37.0-47.0); Hemoglobin 12.6 g/dL (12.2-16.2); Immature Granulocytes # 0.02 10^3uL; Immature Granulocytes % 0.5 %; Lymphocytes # 1.1 K/mm3 (0.7-4.5); Lymphocytes % 26.6 % (10-50); Mean Corpuscular HGB Conc 32.6 g/dL (31.8-35.4); Mean Corpuscular Hemoglobin 30.2 pg (27.0-31.2); Mean Corpuscular Volume 92.6 fl (81-99); Mean Platelet Volume 12.5 fl (7.4-10.4); Monocytes # 0.3 K/mm3 (0.1-1.0); Monocytes % 8.4 % (1.7-9.3); Neutrophils # 2.5 K/mm3 (1.8-7.8); Neutrophils % 63.2 % (37.0-80.0); Nucleated Red Blood Cells # 0 10^3/uL; Nucleated Red Blood Cells % 0 %; Platelet Count 157 K/mm3 (142-424); Red Blood Count 4.17 M/mm3 (4.20-5.40); Red Cell Distribution Width 12.1 % (11.5-17.5); Red Cell Distribution Width-SD 40.8 fL
[2024-11-29 09:11] LABS: Appearance,Urine CLEAR (Clear); Bilirubin,Urine Negative (Negative); Blood, Urine Negative (Negative); Color,Urine YELLOW (Yellow); Glucose,Urine (UA) Negative (Negative); Ketones,Urine Negative (Negative); Leukocyte Esterase,Urine TRACE (Negative); Nitrate,Urine Negative (Negative); Protein,Urine TRACE (Negative); Urobilinogen,Urine 0.2 EU/dl (0.2)
[2024-11-29 09:20] LABS: Albumin Level 4.4 g/dl (3.5-5.0); Chloride 111 mmol/L (98-107); Sodium 139 mmol/L (136-145)
[2024-11-29 09:23] LABS: Alanine Aminotransferase 15 U/L (12-78); Alkaline Phosphatase 95 U/L (38-126); Aspartate Amino Transferase 18 U/L (14-36); Bilirubin,Total 0.6 mg/dl (0.2-1.3); Blood Urea Nitrogen 14 mg/dl (7-17); Carbon Dioxide 21 mmol/L (22.0-30.0); Cholesterol 110 mg/dl (140-200); Estimated Glomerular Filt Rate 71 ml/min (>60); GFR (African American) 86 ML/MIN (>60); Globulin 2.2 g/dL (1.3-3.2); Total Protein,Serum 6.6 g/dl (6.3-8.2); Triglycerides 100 mg/dl (30-150); VLDL Cholesterol 20 mg/dL (0-40)
[2024-11-29 09:24] LABS: Calcium 9.9 mg/dl (8.4-10.2); Chol/HDL Ratio 2.5 (1-3.5); Glucose 107 mg/dl (74-100); HDL Cholesterol 44 mg/dl (40-60); Magnesium 1.5 mg/dl (1.6-2.3); Phosphorous 3.2 mg/dl (2.5-4.5)
[2024-11-29 09:27] LABS: Bacteria,Urine Trace /lpf
[2024-11-29 09:35] LABS: Direct LDL Cholesterol 44.31 mg/dL (100-129)
[2024-11-29 09:40] LABS: Creatinine,Urine Random 198 mg/dL (Not Estab.)
[2024-12-01 15:16] LABS: BKV DNA, Quant PCR, Plasma Negative (Negative)
[2024-12-03 05:20] LABS: Tacrolimus (FK506), Blood 6.7 ng/mL (5.0-20.0)
== END 2024-11-29 23:59 | disposition home or self-care (01) ==
LOC: LAB 08:18
PROVIDERS: Nurse Practitioner Family; PCP Nurse Practitioner; Visit Provider Internal Medicine Hematology & Oncology
DX: Z01.89 Encounter for other specified special examinations (principal); E11.8 Type 2 diabetes mellitus with unspecified complications; I10 Essential (primary) hypertension; E78.5 Hyperlipidemia, unspecified; Z94.0 Kidney transplant status; Z79.899 Other long term (current) drug therapy
CPT/HCPCS: 36415; 80053; 80061; 80197; 81001; 82570; 83735; 84100; 84156; 85025; 87799

== ENCOUNTER 2025-01-31 10:16 | Outpatient (CLI) | payer MEDICAID, SELFPAY ==
--- OUTSIDE RECORDS SUMMARY | 2025-01-31 10:20 | XMS_ITS | Encounter Summary ---
Author Organization [employer] ([place], [place], [place], [place]) Address [address] [place] [address] Care Team Providers Care Picker/Puller Name Role Phone Unavailable Primary Care Provider Unavailabl e Encounter Details Date Type Department Care Team (Late st Contact Info) Description 01/19/2020 Transcribed Document [facility] Family Medicine [address] [place] [address] ProviderLaury MD [address] [place] [id number] Social History Tobacco Use Types Packs/Day Years [...] Physician Requested for Consult : LARRY MARTINES MD-[facility] Physician Covering for Consult : LARRY MARTINES MD-BRANDEE Date and Time Call Returned : 01/19/2020 9:04 EDT ASPEN CROWDER - 01/19/2020 9:04 EDT documented in this encounter Plan of Treatment Not on file documented as of this encounter Visit Diagnoses Not on filedocumented in this encounter
--- OUTSIDE RECORDS SUMMARY | 2025-01-31 10:20 | XMS_ITS | Encounter Summary ---
Author Organization [employer] ([place], [place], [place], [place]) Address [address] [place] [address] Care Team Providers Care Yarn Preparation Supervisor Name Role Phone Unavailable Primary Care Provider Unavailabl e Encounter Details Date Type Department Care Team (Late st Contact Info) Description 11/19/2018 Transcribed Document [facility] Family Medicine [address] [place] [address] ProviderLaury MD [address] [place] [address] Social History Tobacco Use Types Packs/Day [...] Laury ProviderMD - 11/19/2018 1:52 AM CDT [facility] AD[address] [place], [place] [phone] Name:Crystal Archer Visit Date:11/18/2018 20:06:00 Emergency Department Care Providers: Physician: Clara Elias Phys Asst Physician: Our doctors and staff appreciate your choice of [facility] for your emergency medical care. Read these instructions carefully. Please call us if you have any questions about your medical problem. [facility] Emergency Department [phone] [facility] Emergency Department [phone] [facility] Emergency Department [phone] Patient Education Materials Gianni Crystal Jones has [...] start to feel better. ??? Only take ogax-ink-ijmydtz or prescription medicines for pain, discomfort, or [...] 01/29/2014 Elsevier Interactive Patient Education ? 2017 [employer] Obstetrics and Gynecology Urinary Tract Infection, Adult Introduction A urinary tract infection (UTI) is an infection of any part of the urinary tract. The urinary tract includes the: ??? Kidneys. ??? Ureters. ??? Bladder. ??? Urethra. These organs make, store, and get rid of pee (urine) in the body. Follow these instructions at home: ??? Take uotw-dqs-xblywuh and prescription medicines only as told by [...] o [facility] # [phone] o [facility] # [phone] o [facility] # [phone] ?? If you had cultures done and [...] quit. o National Network of Tobacco Cessation [id number]-DGCJ-NOW o [place] Lung Association o [place] Heart Association [phone] o Sai/Manuel Mccray [phone] FINANCIAL INFORMATION ?? [facility] provides financial counseling to anyone who requests our services. ?? Emergency Physicians are independently contracted to provide your care. You will receive a bill for the care provided to you by the Physician and/or the Physician Fermentation Manager. This will be a separate bill [...] Patient Education Materials: ENT Otitis Media, Adult, Yoru-uf-Zohu Obstetrics and Gynecology Urinary Tract Infection, Adult, Skfc-xn-Xeog Follow-Up Instructions: Follow Up With: Where: When: [...] as recommended Patient Signature / or Patient Circulation Worker Provider Signature Date documented in this encounter Plan of Treatment Not on file documented as of this encounter Visit Diagnoses Not on filedocumented in this encounter
--- OUTSIDE RECORDS SUMMARY | 2025-01-31 10:20 | XMS_ITS | Encounter Summary ---
Author Organization [employer] ([place], [place], [place], [place]) Address [address] [place] [address] Care Team Providers Care Heavy Equipment Plumbing Supervisor Name Role Phone Unavailable Primary Care Provider Unavailabl e Encounter Details Date Type Department Care Team (Late st Contact Info) Description 12/24/2018 Transcribed Document [facility] [place] [address] [place] [address] ProviderLaury MD [address] [place] [address] Social History Tobacco Use Types Packs/Day [...] Laury ProviderMD - 12/24/2018 7:19 PM CDT [facility] ADDR[facility] [place], [place] [phone] Name:Crystal Archer Visit Date:12/24/2018 15:01:00 Emergency Department Care Providers: Physician: MEGHA MAN Physician: Our doctors and staff appreciate your choice of [facility] for your emergency medical care. Read these instructions carefully. Please call us if you have any questions about your medical problem. [facility] Emergency Department [phone] [facility] Emergency Department [phone] [facility] Emergency Department [phone] Patient Education Materials Gianni Crystal Karen has been given the following patient [...] Medicines may be prescribed or be available xiyo-jxw-bwjadrp. The medicines may be: ??? Taken by mouth (orally). ??? Applied as a cream. Follow these instructions at home: ??? Take or apply tuoi-ypl-radtddo and prescription medicines only as told by [...] 03/21/2012 Document Revised: 02/27/2017 Document Reviewed: 01/05/2016 InCytu Interactive Patient Education ? 2019 [employer]. FOLLOW UP CARE Most conditions that require [...] the x-ray department to pick them up [facility] # [phone] [facility] # [phone] o [facility] # [phone] ?? If you had cultures done and [...] quit. o National Network of Tobacco Cessation [id number]-IOHN-NOW o [place] Lung Association o Citizen [place] Heart Association [phone] o Sai/Manuel Mccray [phone] FINANCIAL INFORMATION ?? [facility] provides financial counseling to anyone who requests our services. ?? Emergency Physicians are independently contracted to provide your care. You will receive a bill for the care provided to you by the Physician and/or the Physician Sweeper Operator Highways. This will be a separate bill from [...] as recommended Patient Signature / or Patient Facilities Maintenance Assistant Provider Signature Date Electronically signed by [facility] Conversion Pipe And Boiler Covers Supervisor Cerner at 10/19/2022 11:23 AM CDT documented in this encounter Plan of Treatment Not on file documented as of this encounter Visit Diagnoses Not on filedocumented in this encounter
--- OUTSIDE RECORDS SUMMARY | 2025-01-31 10:20 | XMS_ITS | Encounter Summary ---
Author Organization [employer] ([place], [place], [place], [place]) Address [address] [place] [address] Care Team Providers Care Register Of Wills Name Role Phone Unavailable Primary Care Provider Unavailabl e Encounter Details Date Type Department Care Team (Late st Contact Info) Description 09/26/2018 Transcribed Document [facility] Family Medicine [address] [place] [address] ProviderLaury MD [address] [place] [address] Social History Tobacco Use Types Packs/Day [...] Laury ProviderMD - 09/26/2018 10:56 PM CDT [facility] ADDR[facility] [place], [place] [phone] Name:Crystal Archer Visit Date:09/26/2018 16:44:00 Emergency Department Care Providers: Physician: INDIO PEREA Physician: Our doctors and staff appreciate your choice of [facility] for your emergency medical care. Read these instructions carefully. Please call us if you have any questions about your medical problem. [facility] Emergency Department [phone] [facility] Emergency Department [phone] [facility] Emergency Department [phone] Patient Education Materials Crystal Archer Karen has [...] 07/04/2006 Document Revised: 12/09/2016 Document Reviewed: 03/04/2014 [employer] Interactive Patient Education ? 2017 [employer] FOLLOW UP CARE Most conditions that [...] x-ray department to pick them up o [facility] # [phone] [facility] # [phone] o [facility] # [phone] ?? If you had cultures done and [...] quit. o National Network of Tobacco Cessation [id number]-OPMG-NOW o [place] Lung [employer] o [place] Heart Association [phone] o Sai/Manuel Mccray [phone] FINANCIAL INFORMATION ?? [facility] provides financial counseling to anyone who requests our services. ?? Emergency Physicians are independently contracted to provide your care. You will receive a bill for the care provided to you by the Physician and/or the Physician Jet Piercer Operator. This will be a separate bill [...] as recommended Patient Signature / or Patient Tour Leader Provider Signature Date Date/Time 09/26/2018 18:56 Saint [...] oral tablet loratadine 10 mg oral capsule Clifford 5 mg-325 mg oral tablet sodium bicarbonate [...]
--- OUTSIDE RECORDS SUMMARY | 2025-01-31 10:20 | XMS_ITS | Encounter Summary ---
Author Organization [employer] ([place], [place], [place], [place]) Address [address] [place] [address] Care Team Providers Care Curriculum Specialist Name Role Phone Unavailable Primary Care Provider Unavailabl e Encounter Details Date Type Department Care Team (Late st Contact Info) Description 01/19/2020 Transcribed Document [facility] Family Medicine [address] [place] [address] ProviderLaury MD [address] [place] [address] Social History Tobacco Use Types Packs/Day [...]
--- OUTSIDE RECORDS SUMMARY | 2025-01-31 10:20 | XMS_ITS | Encounter Summary ---
Author Organization [employer] ([place], [place], [place], [place]) Address [address] [place] [address] Care Team Providers Care Sanitation Engineer Name Role Phone Unavailable Primary Care Provider Unavailabl e Encounter Details Date Type Department Care Team (Late st Contact Info) Description 01/19/2020 Transcribed Document [facility] Family Medicine [address] [place] [address] ProviderLaury MD [address] [place] [address] Social History Tobacco Use Types Packs/Day [...] method Teaching Evaluation : Verbalizes understanding OCTAVIO BRAND RN - 01/19/2020 16:16 EDT Electronically signed by [facility] Conversion Biodiesel Production Associate Cerner at 11/02/2022 9:56 AM CDT documented in this encounter Plan of Treatment Not on file documented as of this encounter Visit Diagnoses Not on filedocumented in this encounter
--- OUTSIDE RECORDS SUMMARY | 2025-01-31 10:20 | XMS_ITS | Encounter Summary ---
Author Organization [employer] ([place], [place], [place], [place]) Address [address] [place] [address] Care Team Providers Care Tallier Name Role Phone Unavailable Primary Care Provider Unavailabl e Encounter Details Date Type Department Care Team (Late st Contact Info) Description 01/08/2019 Transcribed Document [facility] [address] [place] [address] ProviderLaury MD [address] [place] [address] Social History Tobacco Use Types Packs/Day [...] Laury ProviderMD - 01/08/2019 12:31 AM CDT [facility] Emergency Department Depart Summary PERSON INFORMATION Name Crystal Archer Age 28 Years 1990 Sex Female Language PCP Marital Status Phone [phone] Visit Id Visit Reason Specialty Enc Type Emergency Med Service Referred by Track Group [facility] [place] Discharge Tracking Id [id number] Checkout 01/07/2019 20:31:56 Checkin 01/07/2019 18:52:00 Acuity 3 - Urgent [facility] Dispo Type Arrival 01/07/2019 18:52:00 Reg Status LOS 000 01:39 Address: [address] [place] [address] [place] [address] POWERFORMS PHYSICIAN NOTES VITALS INFORMATION Vital Sign Triage Temp 99.4 Temp Route Pulse Rate 96 Respiratory Rate 16 Blood Pressure 137/ 85 LOCATION INFORMATION Arrival Nurse Unit Room Bed 01/07/2019 18:52:00 [facility] ED Waitroom (K) 01/07/2019 20:31:56 [facility] ED Checkout (K) MEDICAL INFORMATION Allergy Info: NSAIDs PATIENT EDUCATION INFORMATION Instructions: Follow up: DIAGNOSIS Electronically signed by Zuleyka Byrd Conversion Senior Infrastructure Architect Cerner at 10/19/2022 11:23 AM CDT documented in this encounter Plan of Treatment Not on file documented as of this encounter Visit Diagnoses Not on filedocumented in this encounter
--- OUTSIDE RECORDS SUMMARY | 2025-01-31 10:20 | XMS_ITS | Encounter Summary ---
Author Organization [employer] ([place], [place], [place], [place]) Address [address] [place] [address] Care Team Providers Care Correctional Lieutenant Name Role Phone Unavailable Primary Care Provider Unavailabl e Encounter Details Date Type Department Care Team (Late st Contact Info) Description 10/31/2018 Transcribed Document [facility] Family Medicine [address] [place] [address] ProviderLaury MD [address] [place] [address] Social History Tobacco Use Types Packs/Day [...] Complaint Primary Care Provider : Rema Ferreira, Webmethods Consultant Accompanied By : Family/Spouse/SO Arrival Mode : [...] : No GI 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 : No Corn Sheller Operator Hx : No Heart Attack : [...] Preferred Communication Mode : Verbal Languages : Serbian Child/Parent Domestic Concerns : None Threats of Suicide : No Jasen summer10/30/2018 20:29 EDT Height and Weight Height Source : Stated Height Entry Format : Gilbert Height, Inches : 65 Inch(Converted to: 5 ft 5 Inch, 165.10 cm) Clinical Height : 165.1 cm Weight Source : Stated Type of Weight Measurement Est : Gilbert Weight, est lb : 214 lb Estimated Clinical Dosing Weight : 97.27 kg Barnes Body Weight : 57 kg Body Surface Area Estimated : 2.11 m2 Body Mass Index Estimated : 35.68 kg/m2 Jasen, summer10/30/2018 20:29 EDT Medication List ED Medications [...] ; Status: Processing ; Ordered As Mnemonic: Emerson 5 mg-325 mg oral tablet ; Simple [...] EDT Electronically signed by Zuleyka Byrd Conversion Composition Weatherboard Applier Cerner at 10/19/2022 11:23 AM CDT documented in this encounter Plan of Treatment Not on file documented as of this encounter Visit Diagnoses Not on filedocumented in this encounter
--- OUTSIDE RECORDS SUMMARY | 2025-01-31 10:20 | XMS_ITS | Encounter Summary ---
Author Organization [employer] ([place], [place], [place], [place]) Address [address] [place] [address] Care Team Providers Care Non Licensed Operator Name Role Phone Unavailable Primary Care Provider Unavailabl e Encounter Details Date Type Department Care Team (Late st Contact Info) Description 01/19/2020 Transcribed Document [facility] [place] [address] [place] [address] ProviderLaury MD [address] [place] [address] Social History Tobacco Use Types Packs/Day [...] ProviderMD - 01/19/2020 3:30 PM CDT [address] [address] FREDDIE ARCHER :1990 Visit Time:01/19/2020 Your Visit Summary Your Care Team Admitting Physician - CONSUELO ESTEVEZ MD-LAZARA MEMBRENO MD PHY, UNKNOWN Attending Physician - CONSUELO ESTEVEZ MD-LAZARA [...] pharmacies and retail stores. ??? Eat bland, wqsc-yi-vkokzr foods in small amounts as you are [...] and water are not available, use hand web analytics developer. Make sure that everyone in your household washes their hands frequently. ??? Take xrvt-hee-adtxnxk and prescription medicines only as told by [...] and water are not available, use hand web analytics developer. Make sure that everyone in your household [...] 07/30/2016 Document Revised: 12/12/2018 Document Reviewed: 12/12/2018 [employer] Interactive Patient Education ?? 2020 [employer]. Hypoglycemia Hypoglycemia occurs when the level of [...] instructions at home: General instructions ??? Take qutm-tjq-nshoolr and prescription medicines only as told by [...] 07/04/2006 Document Revised: 12/26/2018 Document Reviewed: 08/06/2016 [employer] Interactive Patient Education ?? 2020 Peer.im. Emergency Awareness and Preventative Care STROKE is [...] Assistance with quitting is available by contacting 4-520-NEXX-NOW. This is a free resource providing counseling, [...] range between ( 1.0 and 7.0 ) [place] #: 0.73 K/uL -- Normal range between ( 0.24 and 0.82 ) [place] #: 0.24 K/uL -- Normal range between ( 0.04 and 0.54 ) [place] %: 7.3 % -- Normal range between [...] ) Urine Bilirubin Dipstick: Negative Urine Specific [place]: 1.012 -- Normal range between ( 1.005 [...] was given the opportunity to ask questions. Patient/Welt Sole Layer Name: Patient/Welt Sole Layer Signature: Relationship to Patient: Clinician/Hospital Welt Sole Layer Signature: Date: Electronically signed by Christopher Byrd Conversion Chemical Research Technician Keysha at 11/02/2022 10:10 AM CDT documented in this encounter Plan of Treatment Not on file documented as of this encounter Visit Diagnoses Not on filedocumented in this encounter
--- OUTSIDE RECORDS SUMMARY | 2025-01-31 10:20 | XMS_ITS | Encounter Summary ---
Author Organization [employer] ([place], [place], [place], [place]) Address [address] [place] [address] Care Team Providers Care Malted Milk Mixer Name Role Phone Unavailable Primary Care Provider Unavailabl e Encounter Details Date Type Department Care Team (Late st Contact Info) Description 09/26/2018 Transcribed Document [facility] [place] [address] [place] [address] ProviderLaury MD [address] [place] [address] Social History Tobacco Use Types Packs/Day [...] Laury ProviderMD - 09/26/2018 10:56 PM CDT [facility] Emergency Department Depart Summary PERSON INFORMATION Name Crystal Archer Age 28 Years 1990 Sex Female Language PCP Marital Status Phone [phone] Visit Id Visit Reason Specialty Enc Type Emergency Med Service [facility] Tr[id number] Checkout 09/26/2018 18:56:15 Checkin 09/26/2018 16:44:00 Acuity 3 - Urgent [facility] Dispo Type Arrival 09/26/2018 16:44:00 Reg Status LOS 000 02:12 Address: [address] [place] [address] [place] [address] POWERFORMS PHYSICIAN NOTES VITALS INFORMATION Vital Sign Triage Temp 98.7 Temp Route Oral/Mouth Pulse Rate 102 Respiratory Rate 20 Blood Pressure 140/ 72 LOCATION INFORMATION Arrival Nurse Unit Room Bed 09/26/2018 16:44:00 [facility] ED Waitroom ([facility]) 09/26/2018 16:50:17 [facility] ED 3 09/26/2018 18:56:15 [facility] ED Checkout ([facility]) MEDICAL INFORMATION Allergy Info: No Known Allergies PATIENT EDUCATION INFORMATION Instructions: Hematuria, Adult Follow up: With: Address: When: Follow up with primary care provider Within 5 to 7 days DIAGNOSIS documented in this encounter Plan of Treatment Not on file documented as of this encounter Visit Diagnoses Not on filedocumented in this encounter
--- OUTSIDE RECORDS SUMMARY | 2025-01-31 10:20 | XMS_ITS | Encounter Summary ---
Author Organization [employer] ([place], [place], [place], [place]) Address [address] [place] [address] Care Team Providers Care Lean Specialist Name Role Phone Unavailable Primary Care Provider Unavailabl e Encounter Details Date Type Department Care Team (Late st Contact Info) Description 12/24/2018 Transcribed Document [facility] [place] [address] [place] [address] ProviderLaury MD [address] [place] [address] Social History Tobacco Use Types Packs/Day Years Used Date Smoking Tobacco: Never Assessed Comments Unknown Sex and Gender Information Value Date Recorded Sex Assigned at Female 01/12/2022 7:15 PM CDT Legal Sex Female 7:15 PM CDT Gender Identity Female 01/12/2022 7:15 PM CDT Sexual Orientation Not on file documented as of this encounter Miscellaneous Notes * Cerner Conversion Note - Laruy ProviderMD - 12/24/2018 7:19 PM CDT [facility] ADDRESS [place], [place] [phone] Name:Crystal Archer Visit Date:12/24/2018 15:01:00 Emergency Department Care Providers: Physician: MEGHA MAN Physician: Our doctors and staff appreciate your choice of [facility] for your emergency medical care. Read these instructions carefully. Please call us if you have any questions about your medical problem. [facility] Emergency Department [phone] [facility] Emergency Department [phone] [facility] Emergency Department [phone] Patient Education Materials Gianni Crystal Karen has [...] Medicines may be prescribed or be available xoil-dvp-gmoaekm. The medicines may be: ??? Taken by mouth (orally). ??? Applied as a cream. Follow these instructions at home: ??? Take or apply qsba-jnv-lmeqesh and prescription medicines only as told by [...] 03/21/2012 Document Revised: 02/27/2017 Document Reviewed: 01/05/2016 [employer] Interactive Patient Education ? 2019 [employer]. FOLLOW UP CARE Most conditions that require [...] the x-ray department to pick them up [facility] # [phone] [facility] # [phone] o [facility] # [phone] ?? If you had cultures done and [...] quit. o National Network of Tobacco Cessation [id number]-XWWI-NOW o [employer] Lung Association o [employer] Heart Association [phone] o Sai/Manuel Mccray [phone] FINANCIAL INFORMATION ?? [facility] provides financial counseling to anyone who requests our services. ?? Emergency Physicians are independently contracted to provide your care. You will receive a bill for the care provided to you by the Physician and/or the Physician Colon Therapist. This will be a separate bill from [...] as recommended Patient Signature / or Patient Pharmacy Technician Instructor Provider Signature Date Date/Time 12/24/2018 15:19 [facility] [...]
--- OUTSIDE RECORDS SUMMARY | 2025-01-31 10:20 | XMS_ITS | Encounter Summary ---
Author Organization [employer] ([place], [place], [place], [place]) Address [address] [place] [address] Care Team Providers Care Beading Sawyer Name Role Phone Unavailable Primary Care Provider Unavailabl e Encounter Details Date Type Department Care Team (Late st Contact Info) Description 10/31/2018 Transcribed Document [facility] Family Medicine [address] [place] [address] ProviderLaury MD [address] [place] [address] Social History Tobacco Use Types Packs/Day [...] Laury ProviderMD - 10/31/2018 1:17 AM CDT [facility] Emergency Department Depart Summary PERSON INFORMATION Name Crystal Archer Age 28 Years 1990 Sex Female Language PCP Marital Status Phone [phone] Visit Id Visit Reason Specialty Enc Type Emergency Med Service Referred by Track Group [facility] Discharge Tracking Id [id number] Checkout 10/30/2018 21:17:02 Checkin 10/30/2018 20:23:00 Acuity 4 - Non-urgent [facility] Dispo Type Arrival 10/30/2018 20:23:00 Reg Status LOS 000 00:54 Address: [address] [place] [address] [place] [address] POWERFORMS PHYSICIAN NOTES VITALS INFORMATION Vital Sign Triage Temp 99 Temp Route Oral/Mouth Pulse Rate 92 Respiratory Rate 22 Blood Pressure 169/ 99 LOCATION INFORMATION Arrival Nurse Unit Room Bed 10/30/2018 20:23:00 [facility] ED Waitroom ([facility]) 10/30/2018 20:35:06 [facility] ED 9 10/30/2018 21:17:02 [facility] ED Checkout ([facility]) MEDICAL INFORMATION Allergy Info: No Known [...]
--- OUTSIDE RECORDS SUMMARY | 2025-01-31 10:20 | XMS_ITS | Encounter Summary ---
Author Organization [facility] Address [address] [place] [address] Care Team Providers Care Payroll Auditor Name Role Phone Jaquan Conley MD Primary Care Provider + [phone] Encounter Details Date Type Department Care Team (Late st Contact Info) Description 10/18/2018 [facility] Historical OTTR [address] [place] [address] Yris Schwarz, RN [facility]-TRANSPLANT ADMINISTRATION Social History [...] currently from her , lives with her fianc who would be her caregiver following transplant. [...] is open to being referred to Dr. aGlindo, medical weight loss specialist. Additionally, she'll need better diabetes control, and to stop smoking as well as E cigarettes prior to being listed for transplant. It is noted in nephrology clinic note that she left [facility] after admission for increasing creatinine and e. coli UTI, consider starting with social work. She also initially stated didn't want to pursue kidney transplant if she couldn't get a pancreas at same time. * Progress Notes - Hilaria Hsu - 08/16/2018 9:25 AM EST Start eval with ; pt left [facility] per [facility] records. Pt has been 5 times; has 2 children, one of which is in [place] with her latest . documented in this encounter Plan of Treatment Not on file documented as of this encounter Visit Diagnoses Not on filedocumented in this encounter Care Teams Payroll Auditor Relationship Specialty Start Date End Date Jaquan Conley MD [address] [place] [address] PCP - General 11/28/20 documented as of this encounter
--- OUTSIDE RECORDS SUMMARY | 2025-01-31 10:20 | XMS_ITS | Encounter Summary ---
Author Organization [employer] ([place], [place], [place], [place]) Address [address] [place] [address] Care Team Providers Care Emr Analyst Name Role Phone Unavailable Primary Care Provider Unavailabl e Encounter Details Date Type Department Care Team (Late st Contact Info) Description 11/19/2018 Transcribed Document [facility] [place] [address] [place] [address] ProviderLaury MD [address] [place] [address] Social History Tobacco Use Types Packs/Day [...] Laury ProviderMD - 11/19/2018 1:52 AM CDT [facility] [place] [facility] Emergency Department Depart Summary PERSON INFORMATION Name Crystal Archer Age 28 Years 1990 Sex Female Language PCP Marital Status Phone [id number] Visit Id Visit Reason Specialty Enc Type Emergency Med Service [facility] Tr[facility] Id [id number] Checkout 11/18/2018 21:52:54 Checkin 11/18/2018 20:06:00 Acuity 4 - Non-urgent [facility] Dispo Type Arrival 11/18/2018 20:06:00 Reg Status LOS 000 01:46 Address: [address] [place], [place] [address]T [facility] [place] [address] POWERFORMS PHYSICIAN NOTES VITALS INFORMATION Vital Sign Triage Temp 99.0 Temp Route Oral/Mouth Pulse Rate 107 Respiratory Rate 18 Blood Pressure 147/ 87 LOCATION INFORMATION Arrival Nurse Unit Room Bed 11/18/2018 20:06:00 [facility] ED Waitroom ([facility]) 11/18/2018 20:10:40 [facility] ED 8 11/18/2018 21:33:06 [facility] ED STA-3 11/18/2018 21:52:54 [facility] ED Checkout ([facility]) MEDICAL INFORMATION Allergy Info: No Known Allergies PATIENT EDUCATION INFORMATION Instructions: Urinary Tract Infection, Adult, Uopj-av-Qvnl; Otitis Media, Adult, Fmpi-yg-Ojhn Follow up: With: Address: When: Follow up with primary care provider Within 1-2 days With: Address: When: Return to Emergency Department Within As needed DIAGNOSIS documented in this encounter Plan of Treatment Not on file documented as of this encounter Visit Diagnoses Not on filedocumented in this encounter
--- OUTSIDE RECORDS SUMMARY | 2025-01-31 10:20 | XMS_ITS | Clinical Summary ---
Author Organization [facility] Address [facility], [address] [place] [address] Care Team Providers Care Solar Fabrication Technician Name Role Phone Jaquan Conley MD Primary Care Provider [phone] Social History Tobacco Use Types Packs/Day Years Used Date Smoking Tobacco: Never Assessed Comments Unknown Sex and Gender Information Value Date Recorded Sex Assigned at Not on file Legal Sex Female 11:22 AM EDT Gender Identity Not on file Sexual Orientation Not on file Plan of Treatment Not on file Insurance [facility] Care Teams Solar Fabrication Technician Relationship Specialty Start Date End Date Jaquan Conley MD [address] [place] [address] PCP - General Internal Medicine 01/09/21
--- OUTSIDE RECORDS SUMMARY | 2025-01-31 10:20 | XMS_ITS | Encounter Summary ---
Author Organization [employer] ([place], [place], [place], [place]) Address [address] [place] [address] Care Team Providers Care Embalmer/Funeral Director Name Role Phone Unavailable Primary Care Provider Unavailabl e Encounter Details Date Type Department Care Team (Late st Contact Info) Description 11/19/2018 Transcribed Document [facility] [place] [address] [place] [address] ProviderLaury MD [address] [place] [address] Social History Tobacco Use Types Packs/Day [...] Performed On: 11/18/2018 20:14 EDT by Marry Erikcson Triage Assessment Triage Date/Time : 11/18/2018 20:14 [...] : No GI 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 : No Underground Distribution Engineer Hx : No Heart Attack : No [...] Source : Stated Height Entry Format : Brown Height, Inches : 65 Inch(Converted to: 5 ft 5 Inch, 165.10 cm) Clinical Height : 165.1 cm Weight Source : Bed scale Weight Entry Format : Brown Weight, Pounds : 220 lb Clinical Dosing Weight : 100 kg Body Surface Area-(BSA) : 2.14 m2 Body Mass Index : 36.7 kg/m2 (HI) [place] Body Weight : 57 kg Marry Erickson [...]
--- OUTSIDE RECORDS SUMMARY | 2025-01-31 10:20 | XMS_ITS | Encounter Summary ---
Author Organization [employer] ([place], [place], [place], [place]) Address [address] [place] [address] Care Team Providers Care Etl Informatica Developer Name Role Phone Unavailable Primary Care Provider Unavailabl e Encounter Details Date Type Department Care Team (Late st Contact Info) Description 10/31/2018 Transcribed Document [facility] [place] [address] [place] [address] ProviderLaury MD [address] [place] [address] Social History Tobacco Use Types Packs/Day [...] Laury ProviderMD - 10/31/2018 1:17 AM CDT [facility] ADDRESS [place], [place] [phone] Name:Crystal Archer Visit Date:10/30/2018 20:23:00 Emergency Department Care Providers: Physician: MEGHA MAN Physician: Our doctors and staff appreciate your choice of [facility] for your emergency medical care. Read these instructions carefully. Please call us if you have any questions about your medical problem. [facility] Emergency Department [phone] [facility] Emergency Department [phone] [facility] Emergency Department [phone] Patient Education Materials Gianni Crystal Jones has [...] 10/19/2011 Document Revised: 11/11/2016 Document Reviewed: 06/30/2015 [employer] Interactive Patient Education ? 2017 [employer] FOLLOW UP CARE Most conditions that [...] them up o [facility] # [phone] o [facility] # [phone] o [facility] # [phone] ?? If you had cultures done and [...] quit. o National Network of Tobacco Cessation QYjedndog6-241-UGKE-NOW o [place] Lung Association o [employer] Heart Association [phone] o Sai/Manuel Mccray [phone] FINANCIAL INFORMATION ?? [facility] provides financial counseling to anyone who requests our services. ?? Emergency Physicians are independently contracted to provide your care. You will receive a bill for the care provided to you by the Physician and/or the Physician Board Certified Behavioral Analyst. This will be a separate bill from [...] as recommended Patient Signature / or Patient Behavior Therapist Provider Signature Date documented in this encounter Plan of Treatment Not on file documented as of this encounter Visit Diagnoses Not on filedocumented in this encounter
--- OUTSIDE RECORDS SUMMARY | 2025-01-31 10:20 | XMS_ITS | Encounter Summary ---
Author Organization [employer] ([place], [place], [place], [place]) Address [address] [place] [address] Care Team Providers Care Field Kiln Burner Name Role Phone Unavailable Primary Care Provider Unavailabl e Encounter Details Date Type Department Care Team (Late st Contact Info) Description 01/08/2019 Transcribed Document [facility] [place] [address] [place] [address] ProviderLaury MD [address] [place] [address] Social History Tobacco Use Types Packs/Day Years [...] Laury ProviderMD - 01/08/2019 12:31 AM CDT [facility] ADDRESS [place], [place] [phone] Name:Crystal Archer Visit Date:01/07/2019 18:52:00 Emergency Department Care Providers: Physician: Physician: Our doctors and staff appreciate your choice of [facility] for your emergency medical care. Read these instructions carefully. Please call us if you have any questions about your medical problem. [facility] Emergency Department [phone] [facility] Emergency Department [phone] [facility] Emergency Department [phone] Patient Education Materials Crystal Archer Karen has [...] x-ray department to pick them up o [facility] # [phone] o [facility] # [phone] o [facility] # [phone] ?? If you had cultures done and [...] quit. o National Network of Tobacco Cessation [id number]-MQLM-NOW o [employer] Lung Association o [employer] Heart Association [phone] o Sai/Manuel Mahendra [phone] FINANCIAL INFORMATION ?? [facility] provides financial counseling to anyone who requests our services. ?? Emergency Physicians are independently contracted to provide your care. You will receive a bill for the care provided to you by the Physician and/or the Physician Continuity Coordinator. This will be a separate bill [...] as recommended Patient Signature / or Patient Forming Press Operator Provider Signature Date Date/Time 01/07/2019 20:31 [facility] [...]
--- OUTSIDE RECORDS SUMMARY | 2025-01-31 10:20 | XMS_ITS | Encounter Summary ---
Author Organization [facility] Address [address], [address] [place] [address] Care Team Providers Care Tile Mechanic Name Role Phone Jaquan Conley MD Primary Care Provider [phone] Reason for Referral * Imaging (Emergency) - Closed Specialty Diagnoses / Procedures Referred By Contac t Referred To Contact Radiology Diagnoses Urinary retention Procedures US RENAL COMPLETE Yue Abdalla APRN [address] [place] [address] Phone: tel: Referral ID Status Reason Start Date Expiration Date Visits Re quested Visits Authorized [id number] Closed 01/09/2021 01/09/2022 1 1 Encounter Details Date Type Department Care Team (Latest Contact Info) Description 01/09/2021 Transcribe Orders [facility] PRE ACCESS [address] [place] [address] Yue Abdalla APRN [address] [place] [address] Urinary retention (Primary Dx) Social History Tobacco Use Types [...] documented as of this encounter Results * US RENAL COMPLETE (01/09/2021 2:10 PM EDT) Anatomical Region Laterality Modality Abdomen Ultrasound 01/09/2021 2:43 PM EDT Impressions 01/09/2021 2:44 PM EDT 1. No abnormality of the kidneys or urinary bladder. Narrative 01/09/2021 2:44 PM EDT History: Urinary retention. Renal ultrasound. FINDINGS: Right kidney is normal measuring 9.4 cm in long dimension. Left kidney is normal measuring 8.2 cm in long dimension. Limited imaging of the urinary bladder demonstrates no abnormality. No mass. No hydronephrosis. Procedure Note Bubba Briceno MD - 01/09/2021 History: Urinary retention. Renal ultrasound. FINDINGS: Right kidney is normal measuring 9.4 cm in long dimension. Leftkidney is normal measuring 8.2 cm in long dimension. Limited imaging ofthe urinary bladder demonstrates no abnormality. No mass. Nohydronephrosis. IMPRESSION: 1. No abnormality of the kidneys or urinary bladder. [facility] Rm GEODUCK DIVER [facility] US ORDERABLES Final Result documented in this encounter Visit Diagnoses Diagnosis Urinary retention- Primary Retention of urine, unspecified Urinary retention Retention of urine, unspecified documented in this encounter Care Teams Tile Mechanic Relationship Specialty Start Date End Date Jaquan Conley MD [address] [place] [address] PCP - General Internal Medicine 01/09/21 documented as of this encounter
--- OUTSIDE RECORDS SUMMARY | 2025-01-31 10:20 | XMS_ITS | Encounter Summary ---
Author Organization [employer] ([place], [place], [place], [place]) Address [address] [place] [address] Care Team Providers Care Medical Nurse Name Role Phone Unavailable Primary Care Provider Unavailabl e Encounter Details Date Type Department Care Team (Late st Contact Info) Description 01/07/2019 Transcribed Document [facility] [place] [address] [place] [address] ProviderLaury MD [address] [place] [address] Social History Tobacco Use Types Packs/Day [...] BBK Tracking Group : BBK Pearl Fernandes 01/07/2019 19:08 EDT ED Visit Reason : [...] : No GI 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 : No Policy Writer Sales Hx : No Heart Attack : No [...]
--- OUTSIDE RECORDS SUMMARY | 2025-01-31 10:20 | XMS_ITS | Encounter Summary ---
Author Organization [employer] ([place], [place], [place], [place]) Address [address] [place] [address] Care Team Providers Care Wire Rope Sales Representative Name Role Phone Unavailable Primary Care Provider Unavailabl e Encounter Details Date Type Department Care Team (Late st Contact Info) Description 01/19/2020 Transcribed Document [facility] [place] [facility] [address] ProviderLaury MD [address] [place] [address] [id number] Social History Tobacco Use Types Packs/Day Years [...] Conversion Note - Laury ProviderMD - 01/19/2020 12:54 AM CDT Patient: FREDDIE [...] documented in chart. Surgical history: section x2 ([id number]). Dilation and curettage (96407020). Tubal ligation ([id number]). wisdom teeth. kidney biopsy. EGD. Stomach biopsy. Gastric sleeve ([id number]).. Family history: Not significant, No family history [...] EDT Height Source Stated Height Entry Format [place] Height/Length, HAITIAN (ft) 5 ft Height/Length HAITIAN 5 Inch CLINICALHEIGHT 165.1 cm [place] Body Weight 56.59 kg Weight Source, ED Standing scale Weight Entry Format [place] Weight Mone[place]que lb 230.8 lb CLINICALWEIGHT 104.91 kg Body [...] 39.0 % Lymph # 3.92 K/uL [place] % 7.3 % [place] # 0.73 K/uL Eos % 2.4 % Eos # 0.24 K/uL Baso % 0.4 % Baso # 0.04 K/uL Slide Review No IG# 0 x10(3)/uL IG% 0 % . Notes: Preliminary ReportNAME:FREDDIE ARCHER / SEX:1990 / FemaleMRN / ACC#:[id number] / [id number] ORDERING PHYSICIAN:Ordering Provider, UpdateEXAM REQUESTED:[id number]--QL ABDOMEN & PELVIS W/O CONTRAST [facility] NAME:MD Ashely, [facility]:status post gastric sleeve surgery on 01-04-2020 [...] No rash, no cyanosis, capillary refill brisk TECHNOLOGY SALES REPRESENTATIVE: Awake alert oriented ??4, nonfocal exam Psych: [...]
--- OUTSIDE RECORDS SUMMARY | 2025-01-31 10:20 | XMS_ITS | Encounter Summary ---
Author Organization [employer] ([place], [place], [place], [place]) Address [address] [place] [address] Care Team Providers Care Machine Heel Seat Laster Name Role Phone Unavailable Primary Care Provider Unavailabl e Encounter Details Date Type Department Care Team (Late st Contact Info) Description 01/19/2020 Transcribed Document [facility] [place] [address] [place] [address] ProviderLaury MD [address] [place] [address] Social History Tobacco Use Types [...] pharmacies and retail stores. ??? Eat bland, sork-vp-hiujap foods in small amounts as you are [...] water are not available, use hand web analyst. Make sure that everyone in your household washes their hands frequently. ??? Take xkqi-adx-tumqinf and prescription medicines only as told by [...] water are not available, use hand web analyst. Make sure that everyone in your household [...] 07/30/2016 Document Revised: 12/12/2018 Document Reviewed: 12/12/2018 [employer] Patient Education ? 2020 [employer] Endocrinology Hypoglycemia Hypoglycemia occurs when the [...] instructions at home: General instructions ??? Take roez-bkv-uxqaugr and prescription medicines only as told by [...] 07/04/2006 Document Revised: 12/26/2018 Document Reviewed: 08/06/2016 [employer] Patient Education ? 2020 [employer]. documented in this encounter Plan of Treatment Not on file documented as of this encounter Visit Diagnoses Not on filedocumented in this encounter
--- OUTSIDE RECORDS SUMMARY | 2025-01-31 10:20 | XMS_ITS | Encounter Summary ---
Author Organization [employer] ([place], [place], [place], [place]) Address [address] [place] [address] Care Team Providers Care Chiropractic Teacher Name Role Phone Unavailable Primary Care Provider Unavailabl e Encounter Details Date Type Department Care Team (Late st Contact Info) Description 01/08/2019 Transcribed Document [facility] [place] [address] [place] [address] ProviderLaury MD [address] [place] [address] [id number] Social History Tobacco Use Types Packs/Day Years [...] Laury ProviderMD - 01/08/2019 12:31 AM CDT [facility] [place], [place] [phone] Name:Crystal Archer Visit Date:01/07/2019 18:52:00 Emergency Department Care Providers: Physician: Physician: Our doctors and staff appreciate your choice of [facility] for your emergency medical care. Read these instructions carefully. Please call us if you have any questions about your medical problem. [facility] Emergency Department [phone] [facility] Emergency Department [phone] [facility] Emergency Department [phone] Patient Education Materials Crystal Archer Karen has [...] them up o [facility] # [phone] o [facility] # [phone] o [facility] # [phone] ?? If you had cultures done and [...] quit. o National Network of Tobacco Cessation [id number]-FFTN-NOW o [place] [facility] o [place] [facility] [phone] o Sai/Manuel Mahendra [phone] FINANCIAL INFORMATION ?? [facility] provides financial counseling to anyone who requests our services. ?? Emergency Physicians are independently contracted to provide your care. You will receive a bill for the care provided to you by the Physician and/or the Physician Exercise Instruct. This will be a separate bill from [...] as recommended Patient Signature / or Patient Heavy Machinery Operator Provider Signature Date documented in this encounter Plan of Treatment Not on file documented as of this encounter Visit Diagnoses Not on filedocumented in this encounter
--- OUTSIDE RECORDS SUMMARY | 2025-01-31 10:20 | XMS_ITS | Encounter Summary ---
Author Organization [employer] ([place], [place], [place], [place]) Address [address] [place] [address] Care Team Providers Care Geophysical E Logger Name Role Phone Unavailable Primary Care Provider Unavailabl e Encounter Details Date Type Department Care Team (Late st Contact Info) Description 12/24/2018 Transcribed Document [facility] Family Medicine [address] [place] [address] ProviderLaury MD [address] [place] [address] Social History Tobacco Use Types Packs/Day [...] Laury ProviderMD - 12/24/2018 7:19 PM CDT [facility] Emergency Department Depart Summary PERSON INFORMATION Name Crystal Archer Age 28 Years 1990 Sex Female Language PCP Marital Status Phone [phone] Visit Id Visit Reason Specialty Enc Type Emergency Med Service Referred by Track Group [facility] Discharge Tracking Id [id number] Checkout 12/24/2018 15:19:27 Checkin 12/24/2018 15:01:00 Acuity 4 - Non-urgent [facility] Dispo Type Arrival 12/24/2018 15:01:00 Reg Status LOS 000 00:18 Address: [address] [place], [place] [address] [address] POWERFORMS PHYSICIAN NOTES VITALS INFORMATION Vital Sign [...]
--- OUTSIDE RECORDS SUMMARY | 2025-01-31 10:20 | XMS_ITS | Encounter Summary ---
Author Organization [employer] ([place], [place], [place], [place]) Address [address] [place] [address] Care Team Providers Care Lime Kiln Worker Name Role Phone Unavailable Primary Care Provider Unavailabl e Encounter Details Date Type Department Care Team (Late st Contact Info) Description 01/18/2020 Transcribed Document [facility] [place] [address] [place] [address] ProviderLaury MD [address] [place] [address] Social History Tobacco Use Types [...] Performed On: 01/18/2020 20:31 EDT by MARKIE PANG RN ED Triage Across the Room Chief Complaint : I THINK I AM DEHYDRATED, I HAD BARIATRIC SURGERY 01/04/20, GASTRIC SLEEVE, EVERYTIME I EAT OR DRINK I PUKE FRANCISCO REYES RN - 01/19/2020 1:21 EDT Triage Date/Time : 01/18/2020 20:31 EDT MARKIE PANG RN - 01/18/2020 20:31 EDT DCP GENERIC CODE Tracking Group : [facility] Tracking Acuity : [...] Problems(Active) At risk for sleep apnea (IMO :22464597 ) Name of Problem: At risk for sleep apnea ; Recorder: SYSTEM, SYSTEM; Confirmation: Confirmed ; Classification: Medical ; Code: 95307069 ; Last Updated: 08/24/2019 10:25 EST ; Life Cycle Date: 08/24/2019 ; Life Cycle Status: Active ; Vocabulary: IMO DM (diabetes mellitus) (SNOMED CT :195271435 ) Name of Problem: DM (diabetes mellitus) ; Recorder: ANGE Green RN; Confirmation: Confirmed ; Classification: Medical ; Code: 957087156 ; Contributor System: PowerChart ; Last Updated: 08/24/2019 10:17 EST ; Life Cycle Date: 08/24/2019 ; Life Cycle Status: Active ; Vocabulary: SNOMED CT HTN (hypertension) (SNOMED CT :0955582455 ) Name of Problem: HTN (hypertension) ; Recorder: ANGE Green RN; Confirmation: Confirmed ; Classification: Medical ; Code: 7658771652 ; Contributor System: PowerChart ; Last Updated: 08/24/2019 10:16 EST ; Life Cycle Date: 08/24/2019 ; Life Cycle Status: Active ; Vocabulary: SNOMED CT Hyperkalemia (SNOMED CT :04347273 ) Name of Problem: Hyperkalemia ; Recorder: Noelle Umanzor Rn; Confirmation: Confirmed ; Classification: Medical ; Code: 24911756 ; Contributor System: PowerChart ; Last Updated: 10/03/2019 10:52 EDT ; Life Cycle Date: 10/03/2019 ; Life Cycle Status: Active ; Vocabulary: SNOMED CT Hyperlipemia (SNOMED CT :44415035 ) Name of Problem: Hyperlipemia ; Recorder: ANGE Green RN; Confirmation: Confirmed ; Classification: Medical ; Code: 44070417 ; Contributor System: PowerChart ; Last Updated: 08/24/2019 10:17 EST ; Life Cycle Date: 08/24/2019 ; Life Cycle Status: Active ; Vocabulary: SNOMED CT Kidney disease (SNOMED CT :231304450 ) Name of Problem: Kidney disease ; Recorder: ANGE Green RN; Confirmation: Confirmed ; Classification: Medical ; Code: 998296650 ; Contributor System: PowerChart ; Last Updated: 08/24/2019 10:17 EST ; Life Cycle Date: 08/24/2019 ; Life Cycle Status: Active ; Vocabulary: SNOMED CT Neuropathy (SNOMED CT :6133437781 ) Name of Problem: Neuropathy ; Recorder: ANGE Green RN; Confirmation: Confirmed ; Classification: Medical ; Code: 6955032442 ; Contributor System: PowerChart ; Last Updated: 08/24/2019 10:18 EST ; Life Cycle Date: 08/24/2019 ; Life Cycle Status: Active ; Vocabulary: SNOMED CT Retinopathy (SNOMED CT :43204555 ) Name of Problem: Retinopathy ; Recorder: Noelle Umanzor Rn; Confirmation: Confirmed ; Classification: Medical ; Code: 10571831 ; Contributor System: PowerChart ; Last Updated: 10/03/2019 10:52 EDT ; Life Cycle Date: 10/03/2019 ; Life Cycle Status: Active ; Vocabulary: SNOMED CT Diagnoses(Active) Dehydration Date: 01/18/2020 ; Diagnosis Type: Reason For Visit ; Confirmation: Complaint of ; Clinical Dx: Dehydration ; Classification: Medical ; Clinical Service: Emergency medicine ; Code: PNED ; Probability: 0 ; Diagnosis Code: [id number] Vomiting Date: 01/18/2020 ; Diagnosis Type: Reason For Visit ; Confirmation: Complaint of ; Clinical Dx: Vomiting ; Classification: Medical ; Clinical Service: Emergency medicine ; Code: PNED ; Probability: 0 ; Diagnosis Code: [id number] ED Height and Weight Height Source : Stated Height Entry Format : [place] Height, Feet : 5 ft(Converted to: 152 cm, 60 Inch) Height, Inches : 5 Inch(Converted to: 0 ft 5 Inch, 12.70 cm) Clinical Height : 165.1 cm Weight Source, ED : Standing scale Weight Entry Format : [place] Weight, Pounds : 230.8 lb Clinical Dosing Weight : 104.91 kg Body Surface Area (BSA) : 2.1 m2 Body Mass Index : 38.5 kg/m2 (HI) [place] Body Weight (IBW) : 56.59 kg MARKIE PANG RN - 01/18/2020 20:31 EDT documented in this encounter Plan of Treatment Not on file documented as of this encounter Visit Diagnoses Not on filedocumented in this encounter
--- OUTSIDE RECORDS SUMMARY | 2025-01-31 10:20 | XMS_ITS | Encounter Summary ---
Author Organization [employer] ([place], [place], [place], [place]) Address [address] [place] [address] Care Team Providers Care Pet Counselor Name Role Phone Unavailable Primary Care Provider Unavailabl e Encounter Details Date Type Department Care Team (Late st Contact Info) Description 01/19/2020 Transcribed Document [facility] [place] [address] [place] [address] ProviderLaury MD [address] [place] [address] Social History Tobacco Use Types Packs/Day [...] On: 01/19/2020 8:59 EDT by CRISTOBAL HANSEN RN-Legal Billing Specialist Readmission Questionnaire Patient Status at Discharge, Previous Admission : Inpatient Did Patient Leave AMA Pre Admission : No Readmission : Unplanned Readmission Reason: : Patient/caregiver decided on their own to come to ED ED Visit Between Hospitalization : No DC Destination, Previous Admission : Discharge To Care Management: Home/Residential/Longterm or Self Care - (01/19/20 08:56:00) If [...] Was Readm Preventable : No CRISTOBAL HANSEN RN-Legal Billing Specialist - 01/19/2020 8:59 EDT Electronically signed by Rochelle [facility] Conversion Funeral Attendant Cerner at 11/02/2022 9:56 AM CDT documented in this encounter Plan of Treatment Not on file documented as of this encounter Visit Diagnoses Not on filedocumented in this encounter
--- OUTSIDE RECORDS SUMMARY | 2025-01-31 10:20 | XMS_ITS | Encounter Summary ---
Author Organization [employer] ([place], [place], [place], [place]) Address [address] [place] [address] Care Team Providers Care Vault Manager Name Role Phone Unavailable Primary Care Provider Unavailabl e Encounter Details Date Type Department Care Team (Late st Contact Info) Description 01/19/2020 Transcribed Document [facility] Family Medicine [address] [place] [address] ProviderLaury MD [address] [place] [address] Social History Tobacco Use Types [...] - 01/19/2020 15:30 EDT Electronically signed by Rochelle [facility] Conversion Helicopter Mechanic Cerner at 11/02/2022 10:02 AM CDT documented in this encounter Plan of Treatment Not on file documented as of this encounter Visit Diagnoses Not on filedocumented in this encounter
--- OUTSIDE RECORDS SUMMARY | 2025-01-31 10:20 | XMS_ITS | Encounter Summary ---
Author Organization [employer] ([place], [place], [place], [place]) Address [address] [place] [address] Care Team Providers Care Cash Processor Name Role Phone Unavailable Primary Care Provider Unavailabl e Encounter Details Date Type Department Care Team (Late st Contact Info) Description 01/19/2020 Transcribed Document [facility] [place] [place] [address] [place] [address] ProviderLaury MD [address] [place] [address] Social History Tobacco Use Types Packs/Day [...] Obtained From : Patient Primary Language : Indian Preferred Communication Mode : Verbal Communication Barrier : None Hand Stapler Needed : No OCTAVIO BRAND RN - [...] Scale Risk Level : 0-24 Low Risk [place] Fall Interventions : Adequate lighting, Bed in [...] Source : Stated Height Entry Format : [place] Height, Feet : 5 ft(Converted to: 152 cm, 60 Inch) Height, Inches : 5 Inch(Converted to: 0 ft 5 Inch, 12.70 cm) Clinical Height : 165.1 cm Weight Source : Standing scale Weight Entry Format : [place] Clinical Dosing Weight : 104.91 kg Weight, Pounds : 230.8 lb Body Surface Area (BSA) : 2.1 m2 Body Mass Index : 38.5 kg/m2 (HI) [place] Body Weight : 57 kg OCTAVIO BRAND [...] OCTAVIO BRAND RN - 01/19/2020 8:36 EDT [place] Suicide Severity Rating Scale (C-SSRS) CSSRS Past [...]
--- OUTSIDE RECORDS SUMMARY | 2025-01-31 10:20 | XMS_ITS | Encounter Summary ---
Author Organization [employer] ([place], [place], [place], [place]) Address [address] [place] [address] Care Team Providers Care Landing Gear Mechanic Name Role Phone Unavailable Primary Care Provider Unavailabl e Encounter Details Date Type Department Care Team (Late st Contact Info) Description 09/15/2021 Transcribed Document [facility] [place] [address] [place] [address] ProviderLaury MD [address] [place] [address] Social History Tobacco Use Types Packs/Day Years Used Date Smoking Tobacco: Never Assessed Food Insecurity Answer Date Recorded Food run [...] Date [place] rded Speak language other than Tamazight at home Not on file 07/30/2023 Want help with school or training Not on file 07/30/2023 Substance Use Answer Date Recorded Used [...] Notes * Cerner Conversion Note - Historical Provider, - 09/15/2021 11:12 AM MINILAB OPERATOR Broset Violence Assessment Entered On: 09/15/2021 12:44 EST Performed On: 09/15/2021 12:43 EST by AUSTIN AVILES RN Broset Violence Assessment Broset Violence Checklist of Symptoms : None Broset Violence Symptoms Subtotal : 0 Broset Violence Symptoms Indicator : Low risk (0) AUSTIN AVILES RN - 09/15/2021 12:43 EST Electronically signed by Zuleyka Byrd Conversion Sales Representative Girls' Apparel Cerner at 11/02/2022 10:10 AM CDT documented in this encounter Plan of Treatment Not on file documented as of this encounter Visit Diagnoses Not on filedocumented in this encounter
--- OUTSIDE RECORDS SUMMARY | 2025-01-31 10:20 | XMS_ITS | Encounter Summary ---
Author Organization [employer] ([place], [place], [place], [place]) Address [address] [place] [address] Care Team Providers Care Industrial Cafeteria Manager Name Role Phone Unavailable Primary Care Provider Unavailabl e Encounter Details Date Type Department Care Team (Late st Contact Info) Description 10/31/2018 Transcribed Document [facility] [place] [address] [place] [address] ProviderLaury MD [address] [place] [address] Social History Tobacco Use Types Packs/Day [...] Laury ProviderMD - 10/31/2018 1:17 AM CDT [facility] ADDRESS [place], [place] [phone] Name:Crystal Archer Visit Date:10/30/2018 20:23:00 Emergency Department Care Providers: Physician: MEGHA MAN Physician: Our doctors and staff appreciate your choice of [facility] for your emergency medical care. Read these instructions carefully. Please call us if you have any questions about your medical problem. [facility] Emergency Department [phone] [facility] Emergency Department [phone] [facility] Emergency Department [phone] Patient Education Materials Gianni Crystal Jones has [...] 10/19/2011 Document Revised: 11/11/2016 Document Reviewed: 06/30/2015 [email or web address] Interactive Patient Education ? 2017 [employer] FOLLOW UP CARE Most conditions that [...] x-ray department to pick them up o [facility] # [phone] o [facility] # [phone] o [facility] # [phone] ?? If you had cultures done and [...] quit. o National Network of Tobacco Cessation [id number]-NRAD-NOW o [place] [facility] o [facility] [place] [facility] 8-692086-0732 o Sai/Manuel Mccray [phone] FINANCIAL INFORMATION ?? [facility] provides financial counseling to anyone who requests our services. ?? Emergency Physicians are independently contracted to provide your care. You will receive a bill for the care provided to you by the Physician and/or the Physician Cutting Room Supervisor. This will be a separate bill [...] as recommended Patient Signature / or Patient Park Superintendent Provider Signature Date Date/Time 10/30/2018 21:17 Saint [...] Dose Frequency amLODIPine 2.5 mg oral tablet [place] 5 mg-325 mg oral tablet Comment: This [...] Date Electronically signed by Zuleyka Byrd Conversion Technical Maintenance Technician Cerner at 10/19/2022 11:23 AM CDT documented in this encounter Plan of Treatment Not on file documented as of this encounter Visit Diagnoses Not on filedocumented in this encounter
--- OUTSIDE RECORDS SUMMARY | 2025-01-31 10:21 | XMS_ITS | Encounter Summary ---
Author Organization [employer] ([place], [place], [place], [place]) Address [address] [place] [address] Care Team Providers Care Postie Name Role Phone Unavailable Primary Care Provider Unavailabl e Encounter Details Date Type Department Care Team (Late st Contact Info) Description 01/05/2020 Transcribed Document [facility] Family Medicine [address] [place] [address] ProviderLaury MD [address] [place] [address] Social History Tobacco Use Types [...] - 01/05/2020 7:38 EDT Electronically signed by Interface, [facility] Conversion Blood Donor Recruiter Cerner at 11/02/2022 10:09 AM CDT documented in this encounter Plan of Treatment Not on file documented as of this encounter Visit Diagnoses Not on filedocumented in this encounter
--- OUTSIDE RECORDS SUMMARY | 2025-01-31 10:21 | XMS_ITS | Encounter Summary ---
Author Organization [employer] ([place], [place], [place]) Address [address] [place] [address] Care Team Providers Care Vocational Aide Name Role Phone Unavailable Primary Care Provider Unavailabl e Encounter Details Date Type Department Care Team (Late st Contact Info) Description 01/04/2020 Transcribed Document [facility] [place] [address] [place] [address] ProviderLaury MD [address] [place] [address] Social History Tobacco Use Types [...] EDT Electronically signed by Christopher Byrd Conversion Department Head [employer] Cerner at 11/02/2022 10:03 AM CDT documented in this encounter Plan of Treatment Not on file documented as of this encounter Visit Diagnoses Not on filedocumented in this encounter
--- OUTSIDE RECORDS SUMMARY | 2025-01-31 10:21 | XMS_ITS | Encounter Summary ---
Author Organization [employer] ([place]) Address [address] [place] [address] Care Team Providers Care Security Installation Sales Technician Name Role Phone Unavailable Primary Care Provider Unavailabl e Encounter Details Date Type Department Care Team (Late st Contact Info) Description 01/05/2020 Transcribed Document [facility] [place] Family Medicine [address] [place] [address] ProviderLaury MD [address] [place] [address] Social History Tobacco Use Types Packs/Day [...] On: 01/05/2020 8:27 EDT by CRISTOBAL HANSEN, RN-Computer Operations Supervisor Initial Assessment I Previously Documented Living Environment [...] have PCP Listed? : Yes CRISTOBAL HANSEN RN-Computer Operations Supervisor - 01/05/2020 8:27 EDT Initial Assessment II [...] : Discharge transportation, Outpatient services CRISTOBAL HANSEN RN-Computer Operations Supervisor - 01/05/2020 8:27 EDT Narrative Note Narrative Note : Patient underwent laparoscopic gastrectomy sleeve. Lives at home with family, iADLs. Plan is to return home at hi, no services needed..................sds CRISTOBAL HANSEN RN-Computer Operations Supervisor - 01/05/2020 8:27 EDT Electronically signed by Zuleyka Byrd Conversion Correctional Supply Supervisor Cerner at 11/02/2022 10:09 AM CDT documented in this encounter Plan of Treatment Not on file documented as of this encounter Visit Diagnoses Not on filedocumented in this encounter
--- OUTSIDE RECORDS SUMMARY | 2025-01-31 10:21 | XMS_ITS | Encounter Summary ---
Author Organization [employer] ([place]) Address [address] [place] [address] Care Team Providers Care Automation Lead Name Role Phone Unavailable Primary Care Provider Unavailabl e Encounter Details Date Type Department Care Team (Late st Contact Info) Description 09/28/2019 Transcribed Document [facility] [place] [address] [place] [address] ProviderLaury MD [address] [place] [address] Social History Tobacco Use Types Packs/Day [...] 1 Health Plan: [facility] Policy Number: [id number] Authorization Number: Insurance Primary Name : [facility] Policy Number: [id number] Authorization Status-Primary : Admit approved Reference Number-Primary : [id number] Authorization Number-Primary : [id number] Number of Days Authorized-Primary : 0 Day(s) [...]
--- OUTSIDE RECORDS SUMMARY | 2025-01-31 10:21 | XMS_ITS | Encounter Summary ---
Author Organization [employer] ([place]) Address [address] [place] [address] Care Team Providers Care Clinical Scientist Name Role Phone Unavailable Primary Care Provider Unavailabl e Encounter Details Date Type Department Care Team (Late st Contact Info) Description 08/24/2019 Transcribed Document [facility] [place] [address] [place] [address] ProviderLaury MD [address] [place] [address] Social History Tobacco Use Types Packs/Day [...] - Historical ProviderMD - 08/24/2019 11:11 AM LEAD ESTHETICIAN [facility] IntraOp Summary Primary Physician: LARRY MARTINES MD-SUR Finalized Date/Time: 08/24/19 12:55:12 Pt. Name: FREDDIE RUGGIERO FELICIA /Sex: 1990 Female Med Rec #: [id number] Physician: LARRY MARTINES MD-BRANDEE Financial #: [id number] Pt. Type: O Room/Bed: [facility] Admit/Disch: 08/24/19 09:42:00 - Institution: [facility] [place]o - Case Attendance Entry 1 Entry 2 Entry 3 Case Attendee LARRY MARTINES Childress, TOBI J, RN ELLIOTT MOURA TECH MD-SUR Role Performed Surgeon/Proceduralist, Director Of Product Management, First Scrub, First First Time In 08/24/19 11:09:00 08/24/19 11:09:00 08/24/19 11:09:00 Time Out 08/24/19 11:15:00 08/24/19 11:15:00 08/24/19 11:15:00 Procedure Gastric Biopsy Esophagogastroduodenosco Esophagogastroduodenosco py, Gastric Biopsy py, Gastric Biopsy Other Attendee Superficial Wound Closed By: Last Modified By: ANGE Green RN Childress, TOBI J, RN Childress, TOBI J, RN 08/24/19 11:14:47 08/24/19 11:14:47 08/24/19 11:14:47 Entry 4 Case Attendee MARGRET MCCULLOUGH BOXING PROMOTER Role Performed BOXING PROMOTER/Nurse Dye Blender Time In 08/24/19 11:09:00 Time Out 08/24/19 11:15:00 Procedure Esophagogastroduodenosco py, Gastric Biopsy Other Attendee Superficial Wound Closed By: Last Modified By: ANGE Green RN 08/24/19 11:14:47 [facility] [place] Endo - Case Attendance Audit 08/24/19 11:14:47 Oceanographic Meteorologist: GEOVANNA Modifier: HOLMESTJ 1 <+> Time Out 1 <*> Procedure Gastric Biopsy 2 <+> Time Out 2 <*> Procedure Esophagogastroduodenoscopy, Gastric Biopsy 3 <+> Time Out 3 <*> Procedure Esophagogastroduodenoscopy, Gastric Biopsy 4 <+> Time Out 4 <*> Procedure Esophagogastroduodenoscopy, Gastric Biopsy 08/24/19 11:12:38 Oceanographic Meteorologist: HOLMESTJ Modifier: HOLMESTJ <+> 1 Procedure 2 <*> Procedure Esophagogastroduodenoscopy 3 <*> Procedure Esophagogastroduodenoscopy 4 <*> Procedure Esophagogastroduodenoscopy 08/24/19 11:11:44 Oceanographic Meteorologist: HOLMESTJ Modifier: HOLMESTJ 2 <+> Time In [...] Endo - Case Times Audit 08/24/19 11:13:59 Oceanographic Meteorologist: HOLMESTJ Modifier: HOLMESTJ <+> 1 Out Room Time <+> 1 Stop Time <+> 1 Stop Time 08/24/19 11:11:59 Oceanographic Meteorologist: HOLMESTJ Modifier: HOLMESTJ <+> 1 Start Time [facility] - Cultures and Spec Summary Entry 1 Cultrures and Specimens Specimen Ordered: Yes Last Modified By: ANGE Green RN 08/24/19 11:14:38 [facility] - Delays Entry 1 Delay Reason Other Duration 0 Minute(s) Comment NO DELAY Last Modified By: ANGE Green RN 08/24/19 11:09:48 [facility] - Delays Audit 08/24/19 11:09:48 Oceanographic Meteorologist: JOHNATHANESTJ Modifier: HOLMESTJ <+> 1 Comment [facility] [...] Modified By: ANGE Green RN 08/24/19 11:09:51 [facility] [place] Endo - Fire Risk Assessment Entry 1 Fire Info Surgical Site or 1- Yes Incision Above the Xyphoid Open O2 Source 1- Yes (Mask or Cannula) Available Ignition 1- Yes (ESU, Laser, Light Source) Fire Risk 3 Assessment Score Fire Score Fire Risk Yes Assessment Complete Fire Risk ANGE Green power shovel operator helper Verified By Fire Risk 08/24/19 11:10:00 Assessment Verified Date/Time Fire Risk High Risk Protocol Yes Implemented Standard Fire Yes Safety Precautions Followed Last Modified By: ANGE Green RN 08/24/19 11:10:04 [facility] [place] Endo - General Case Property Assessment Monitor 1 Case Information OR Endo 01 [facility] [place] Case Level 1 Room Verified Yes Wound Class II - Clean-Contaminated Specialty SN General Anesthesia Type MAC ASA Class 3 Diagnosis Preop Diagnosis GERD Postop Same As Preop No Postop Diagnosis normal EGD Last Modified By: ANGE Green RN 08/24/19 11:11:13 [facility] [place] Endo - General Case Data Audit 08/24/19 11:14:21 Oceanographic Meteorologist: GEOVANNA Modifier: HOLMESTJ <+> 1 Postop Diagnosis [facility] [place] Endo - Intraoperative Assessment Entry 1 Valid History / Yes Physical in Chart Preoperative Yes Checklist Reviewed/Evaluated Allergies Reviewed Yes Patient is Latex No Sensitive Level of WDL Consciousness (WDL = Alert, Oriented to Person, Place, and Time) Present Upon IVs, ECG monitored Arrival to OR Prosthetic/Assistive Insulin pump Devices Last Modified By: ANGE Green RN 08/24/19 11:11:51 [facility] - Intraoperative Assessment Audit 08/24/19 12:55:06 Oceanographic Meteorologist: JOHNATHANESTJ Modifier: HOLMESTJ <+> 1 Prosthetic/Assistive Devices [facility] [place] Endo - Intraoperative Equipment Entry 1 [...] Endo - Patient Positioning Audit 08/24/19 11:12:40 Oceanographic Meteorologist: GEOVANNA Modifier: HOLMESTJ 1 <*> Procedure Esophagogastroduodenoscopy [facility] [...] Modified By: ANGE Green RN 08/24/19 11:14:13 [facility] - Sign Out Audit 08/24/19 11:14:13 Oceanographic Meteorologist: GEOVANNA Modifier: HOLMESTJ <+> 1 RN Sign Out Signature Date/Time <+> 1 Urinary Catheter Documented in IView [facility] [place] Endo - Surgical Procedures Entry 1 Entry [...] ANGE Green RN 08/24/19 11:12:34 08/24/19 11:12:34 [facility] [place] Endo - Surgical Procedures Audit 08/24/19 11:14:04 Oceanographic Meteorologist: GEOVANNA Modifier: HOLMMARCIA <+> 1 Stop <+> 2 Stop [facility] [place] Endo - Time Out Entry 1 Procedure [...] Modified By: ANGE Green RN 08/24/19 11:12:41 [facility] [place] Endo - Time Out Audit 08/24/19 11:12:41 Oceanographic Meteorologist: GEOVANNA Modifier: HOLMESTJ 1 <*> Procedure to be Performed Esophagogastroduodenoscopy 08/24/19 11:12:26 Oceanographic Meteorologist: JOHNATHANESTGiacomo Modifier: HOLMESTJ 1 <*> Beta Renae Administered [...] Information Case Comments <None> Finalized By: ANGE Green RN Document Signatures Signed By: ANGE Green RN 08/24/19 11:14 ANGE Green RN 08/24/19 12:55 Unfinalized History Date/Time Username Reason for Unfinalizing Freetext Reason for Unfinalizing 08/24/19 12:54 GEOVANNA Correct Documentation documented in this encounter Plan of Treatment Not on file documented as of this encounter Visit Diagnoses Not on filedocumented in this encounter
--- OUTSIDE RECORDS SUMMARY | 2025-01-31 10:21 | XMS_ITS | Encounter Summary ---
Author Organization [employer] ([place], [place], [place], [place]) Address [address] [place] [address] Care Team Providers Care Fractionation Plant Supervisor Name Role Phone Unavailable Primary Care Provider Unavailabl e Encounter Details Date Type Department Care Team (Late st Contact Info) Description 08/03/2018 Transcribed Document [facility] [place] Family Medicine [address] [place] [address] ProviderLaury MD [address] [place] [address] Social History Tobacco Use Types Packs/Day [...] - Laury ProviderMD - 08/03/2018 7:32 PM PRODUCT TESTER [facility] [place], [place] [phone] Name:Crystal Archer Visit Date:08/03/2018 13:52:00 Emergency Department Care Providers: Physician: MEGHA MAN Physician: Our doctors and staff appreciate your choice of [facility] for your emergency medical care. Read these instructions carefully. Please call us if you have any questions about your medical problem. [facility] Emergency Department [phone] Emergency Department [phone] [facility] Emergency Department [phone] Patient Education Materials Gianni Crystal Jones has [...] department to pick them up o [facility] # [phone] o # [phone] o [facility] # [phone] ?? If you had cultures done and [...] quit. o National Network of Tobacco Cessation [id number] o [employer] o [employer] [phone] o Sai/Manuel Mccray [phone] FINANCIAL INFORMATION ?? [facility] provides financial counseling to anyone who requests our services. ?? Emergency Physicians are independently contracted to provide your care. You will receive a bill for the care provided to you by the Physician and/or the Physician Card Mounter. This will be a separate bill from [...] as recommended Patient Signature / or Patient Featheredge Machine Operator Provider Signature Date documented in this encounter Plan of Treatment Not on file documented as of this encounter Visit Diagnoses Not on filedocumented in this encounter
--- OUTSIDE RECORDS SUMMARY | 2025-01-31 10:21 | XMS_ITS | Clinical Summary ---
Author Organization [facility] Address [address] [place] [address] Care Team Providers Care National Account Director Name Role Phone Unavailable Primary Care [...] therelease of HIV test results or diagnoses. [id number] Allergies Active Allergy Reactions Criticality Noted [...] 1989 Lipid Panel 1989 Renal Function/GFR 1989 Alcohol Misuse Screening 2007 HIV Screening 2007 Immunization: Hepatitis B (1 of 3 - Risk Dialysis 4-dose series) 2009 Cervical Cancer Screening/Pa p Smear (MyChart) 2019 Immunization: Pneumococcal ( 2 of 2 - PCV) 12/22/2019 12/21/2018 Diabetic Eye Exam (MyChart) 10/20/2023 Hemoglobin A1C Monitoring (MyChart) 10/20/2023 Immunization: COVID-19 ( season) 2024 Immunization: Influenza (MyC stinson) (#1) 2025 04/13/2023, 04/07/2021, 04/22/2020, Additional history exists Immunization: DTaP/Tdap/Td ( 2 - Td or Tdap) 09/28/2033 09/29/2023 Insurance [facility] care Address: [facility] [id number] [place] [id number]
--- OUTSIDE RECORDS SUMMARY | 2025-01-31 10:21 | XMS_ITS | Encounter Summary ---
Author Organization [employer] ([place]) Address [address] [place] [address] Care Team Providers Care Product Designer Name Role Phone Unavailable Primary Care Provider Unavailabl e Encounter Details Date Type Department Care Team (Late st Contact Info) Description 01/04/2020 Transcribed Document [facility] [place] Family Medicine [address] [place] [address] ProviderLaury MD [address] [place] [address] Social History Tobacco Use Types Packs/Day [...] Mickey Fuentes RN - 01/05/2020 7:36 EDT Electronically signed by Zuleyka Byrd Conversion Oil Field Equipment Mechanic Supervisor Cerner at 11/02/2022 10:15 AM CDT documented in this encounter Plan of Treatment Not on file documented as of this encounter Visit Diagnoses Not on filedocumented in this encounter
--- OUTSIDE RECORDS SUMMARY | 2025-01-31 10:21 | XMS_ITS | Clinical Summary ---
Author Organization [employer] ([place], [place]) Address [address] [place] [address] Care Team Providers Care Driver Trainee Name Role Phone Unavailable Primary Care Provider [...] drink = 0.6 oz pur e alcohol) Food Insecurity Answer Date Recorded Food run [...] Date Blaine rded Speak language other than Lithuanian at home Not on file 07/30/2023 Want [...] 77 05/21/2023 9:46 PM EDT Temperature 36.8 C (98.3 F) 05/21/2023 9:46 PM EDT Respiratory Rate 18 05/21/2023 9:46 PM EDT [...] Screening 2007 Pap Smear 2010 COVID-19 VACCINE (2023- season) 2024 Tobacco Cessation Counseling and Screening (12+) 05/21/2024 05/21/2023 Influenza Vaccine (#1) 2025 9, 04/06/2018, 04/05/2012, Additional history exists DTAP/TDAP/TD VACCINES (2 - Td or Tdap) 02/16/2028 02/15/2018 Pneumococcal Vaccine: 0-49 Years Aged Out 12/21/2018 No longer eligible based on patient's age to complete this topic Insurance [facility] Advance Directives For more information, please contact: [phone] * Full Code (Latest Code Status on File) Date Activated Date Inactivated Comments 09/23/2022 6:27 AM 09/23/2022 11:31 AM
--- OUTSIDE RECORDS SUMMARY | 2025-01-31 10:21 | XMS_ITS | Encounter Summary ---
Author Organization [employer] ([place]) Address [address] [place] [address] Care Team Providers Care Soda Tester Name Role Phone Unavailable Primary Care Provider Unavailabl e Encounter Details Date Type Department Care Team (Late st Contact Info) Description 01/05/2020 Transcribed Document [facility] [place] [address] [place] [address] ProviderLaury MD [address] [place] [address] Social History Tobacco Use Types [...] Conversion Note - Laury ProviderMD - 01/05/2020 1:42 PM CDT Patient Education [...] your book, please call the Center at [phone]. documented in this encounter Plan of Treatment Not on file documented as of this encounter Visit Diagnoses Not on filedocumented in this encounter
--- OUTSIDE RECORDS SUMMARY | 2025-01-31 10:21 | XMS_ITS | Encounter Summary ---
Author Organization [employer] ([place]) Address [address] [place] [address] Care Team Providers Care Tan Room Supervisor Name Role Phone Unavailable Primary Care Provider Unavailabl e Encounter Details Date Type Department Care Team (Late st Contact Info) Description 08/03/2018 Transcribed Document [facility] [place] [address] [place] [address] ProviderLaury MD [address] [place] [address] Social History Tobacco Use Types Packs/Day [...] - Laury ProviderMD - 08/03/2018 6:57 PM MAINSPRING FABRICATION SUPERVISOR BBK Triage ED Entered On: 08/03/2018 14:06 EST Performed On: 08/03/2018 13:57 EST by ROSA FOSTER Triage Assessment Gynecologic Hx : N/A Medication Profile, Med Rec : Open ROSA FOSTER - 08/03/2018 14:10 EST Triage Date/Time : 08/03/2018 13:57 EST ROSA FOSTER 08/03/2018 13:57 EST DCP GENERIC CODE Tracking Group : GM Nicolas Tracking Acuity : 3 - Urgent GM CRISTIAN ROSA Conrad 08/03/2018 13:57 EST ED Visit Reason : Urinary/Voiding Complaints Primary Care Provider : Jax Hsu Accompanied By : Family/Spouse/SO Arrival Mode : Ambulatory Chief Complaint : C/O low back pain, dysuria since 0430. D/CD from [facility] 07/22 AMA for UTI. 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
--- OUTSIDE RECORDS SUMMARY | 2025-01-31 10:21 | XMS_ITS | Encounter Summary ---
Author Organization [employer] ([place]) Address [address] [place] [address] Care Team Providers Care Fuel Island Attendant Name Role Phone Unavailable Primary Care Provider Unavailabl e Encounter Details Date Type Department Care Team (Late st Contact Info) Description 01/04/2020 Transcribed Document [facility] [place] [address] [place] [address] ProviderLaury MD [address] [place] [address] Social History Tobacco Use Types Packs/Day [...] Policy Numbers : Insurance 1 Health Plan: [facility] Policy Number: [id number] Authorization Number: [id number] Insurance Primary Name : [facility] Policy Number: [id number] Authorization Status-Primary : Admit approved Reference Number-Primary : [id number] Authorization Number-Primary : [id number] Number of Days Authorized-Primary : 0 Day(s) Authorized Service Begin Date-Primary : 01/04/2020 EDT Authorized Service End Date-Primary : 01/04/2020 EDT Historical Authorization Comments-Primary : Comment 1: [employer] approved per website for 1 day inpt (MANOJ HWANG RN-Utilization Review 12/28/2019 11:50) MANOJ HWANG RN-Utilization Review - 01/04/2020 14:12 EDT Electronically signed by Zuleyka Byrd Conversion Rocket Engine Component Mechanic Cerner at 11/02/2022 10:15 AM CDT documented in this encounter Plan of Treatment Not on file documented as of this encounter Visit Diagnoses Not on filedocumented in this encounter
--- OUTSIDE RECORDS SUMMARY | 2025-01-31 10:21 | XMS_ITS | Encounter Summary ---
Author Organization [facility] Address [address] 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
--- OUTSIDE RECORDS SUMMARY | 2025-01-31 10:21 | XMS_ITS | Encounter Summary ---
Author Organization [employer] ([place]) Address [address] [place] [address] Care Team Providers Care Senior Svp Name Role Phone Unavailable Primary Care Provider Unavailabl e Encounter Details Date Type Department Care Team (Late st Contact Info) Description 12/24/2018 Transcribed Document [facility] [place] Medicine [address] [place] [address] ProviderLaury MD [address] [place] [address] Social History Tobacco Use Types Packs/Day [...] - Non-urgent BBK Tracking Group : BBK [facility] Maddi - 12/24/2018 15:05 EDT ED Visit Reason : Rash Primary Care Provider : Rema Ferreira, Metallurgy Teacher Accompanied By : Family/Spouse/SO Arrival Mode : [...] : No GI 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 : No Pressure Tester Operator Hx : No Heart Attack : [...] Source : Stated Height Entry Format : [place] Height, Inches : 65 Inch(Converted to: 5 ft 5 Inch, 165.10 cm) Clinical Height : 165.1 cm Weight Source : Bed scale Weight Entry Format : [place] Weight, Pounds : 221 lb Clinical Dosing Weight : 100.45 kg Body Surface Area-(BSA) : 2.15 m2 Body Mass Index : 36.9 kg/m2 (HI) [place] Body Weight : 57 kg Maddi Tomlin [...]
--- OUTSIDE RECORDS SUMMARY | 2025-01-31 10:21 | XMS_ITS | Encounter Summary ---
Author Organization [employer] ([place], [place], [place], [place]) Address [address] [place] [address] Care Team Providers Care Mutuel Teller Name Role Phone Unavailable Primary Care Provider Unavailabl e Encounter Details Date Type Department Care Team (Late st Contact Info) Description 09/07/2018 Transcribed Document [facility] Family Medicine [address] [place] [address] ProviderLaury MD [address] [place] [address] Social History Tobacco Use Types Packs/Day [...] - Laury ProviderMD - 09/07/2018 9:31 PM SALES PLANNING ANALYST [facility] ADDRESS [place], [place] [phone] Name:Crystal Archer Visit Date:09/07/2018 15:20:00 Emergency Department Care Providers: Physician: MEGHA MAN Physician: Our doctors and staff appreciate your choice of [facility] for your emergency medical care. Read these instructions carefully. Please call us if you have any questions about your medical problem. [facility] Emergency Department [phone] [facility] Emergency Department [phone] [facility] Emergency Department [phone] Patient Education Materials Gianni Crystal Jones has [...] 12/15/2006 Document Revised: 03/06/2017 Document Reviewed: 12/11/2014 Codasip Interactive Patient Education ? 2017 [employer] Inc. FOLLOW UP CARE Most conditions that [...] up o [facility] # [phone] o [facility] # [phone] o [facility] # [phone] ?? If you had cultures done and [...] quit. o National Network of Tobacco Cessation [id number]-NOW o [employer] o [employer] Association [phone] o Sai/Manuel Mccray [phone] FINANCIAL INFORMATION ?? [facility] provides financial counseling to anyone who requests our services. ?? Emergency Physicians are independently contracted to provide your care. You will receive a bill for the care provided to you by the Physician and/or the Physician Chief Librarian Branch. This will be a separate bill from [...] to the Emergency Department. Patient Visit Summary Gianni Crystal Jones has been given the following list of [...] as recommended Patient Signature / or Patient Shell Grader Provider Signature Date Date/Time 09/07/2018 16:31 Saint [...] oral tablet loratadine 10 mg oral capsule Milton 5 mg-325 mg oral tablet sodium bicarbonate [...]
--- OUTSIDE RECORDS SUMMARY | 2025-01-31 10:21 | XMS_ITS | Encounter Summary ---
Author Organization [employer] ([place], [place], [place], [place]) Address [address] [place] [address] Care Team Providers Care Baby Doctor Name Role Phone Unavailable Primary Care Provider Unavailabl e Encounter Details Date Type Department Care Team (Late st Contact Info) Description 01/05/2020 Transcribed Document [facility] Family Medicine [address] [place] [address] ProviderLaury MD [address] [place] [address] Social History Tobacco Use Types Packs/Day [...]
--- OUTSIDE RECORDS SUMMARY | 2025-01-31 10:21 | XMS_ITS | Encounter Summary ---
Author Organization [employer] ([place], [place], [place]) Address [address] [place] [address] Care Team Providers Care Network Strategist Name Role Phone Unavailable Primary Care Provider Unavailabl e Encounter Details Date Type Department Care Team (Late st Contact Info) Description 01/18/2020 Transcribed Document [facility] [place] [facility] [address] [place] [address] ProviderLaury MD [address] [place] [address] Social History Tobacco Use Types [...] Communication Barrier : None Primary Language : Serbian Any Spiritual/Cultural Needs or Requests : No [...]
--- OUTSIDE RECORDS SUMMARY | 2025-01-31 10:21 | XMS_ITS | Encounter Summary ---
Author Organization [facility] Address [address] 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
--- OUTSIDE RECORDS SUMMARY | 2025-01-31 10:21 | XMS_ITS | Encounter Summary ---
Author Organization [employer] ([place], [place], [place], [place]) Address [address] [place] [address] Care Team Providers Care Grab Hooker Name Role Phone Unavailable Primary Care Provider Unavailabl e Encounter Details Date Type Department Care Team (Late st Contact Info) Description 09/07/2018 Transcribed Document [facility] [place] [address] [place] [address] ProviderLaury MD [address] [place] [address] Social History Tobacco Use Types Packs/Day [...] - Laury ProviderMD - 09/07/2018 9:31 PM GREEN MEAT GRADER [facility] Emergency Department Depart Summary PERSON INFORMATION Name Crystal Archer Age 28 Years 1990 Sex Female Language PCP Marital Status Phone [phone] Visit Id Visit Reason Specialty Enc Type Emergency Med Service Referred by Track Group GM [place] Discharge Tracking Id [id number] Checkout 09/07/2018 16:31:16 Checkin 09/07/2018 15:20:00 Acuity 4 - Non-urgent [facility] Dispo Type Arrival 09/07/2018 15:20:00 Reg Status LOS 000 01:11 Address: [address] [place] [address] [place] [address] POWERFORMS PHYSICIAN NOTES VITALS INFORMATION Vital Sign Triage Temp 99.1 Temp Route Oral/Mouth Pulse Rate 61 Respiratory Rate 20 Blood Pressure 145/ 91 LOCATION INFORMATION Arrival Nurse Unit Room Bed 09/07/2018 15:20:00 [facility] ED Waitroom ([facility]) 09/07/2018 15:34:51 [facility] ED 9 09/07/2018 16:31:16 [facility] ED Checkout [...]
--- OUTSIDE RECORDS SUMMARY | 2025-01-31 10:21 | XMS_ITS | Encounter Summary ---
Author Organization [employer] ([place], [place], [place], [place]) Address [address] [place] [address] Care Team Providers Care Doughnut Fryer Name Role Phone Unavailable Primary Care Provider Unavailabl e Encounter Details Date Type Department Care Team (Late st Contact Info) Description 11/19/2018 Transcribed Document [facility] Family Medicine [address] [place] [address] ProviderLaury MD [address] [place] [address] Social History Tobacco Use Types Packs/Day [...] Laury ProviderMD - 11/19/2018 1:52 AM CDT [facility] ADDRESS [place], [place] [phone] Name:Crystal Archer Visit Date:11/18/2018 20:06:00 Emergency Department Care Providers: Physician: Clara Elias Phys Asst Physician: Our doctors and staff appreciate your choice of [facility] for your emergency medical care. Read these instructions carefully. Please call us if you have any questions about your medical problem. [facility] Emergency Department [phone] [facility] Emergency Department [phone] [facility] Emergency Department [phone] Patient Education Materials Gianni Crystal Jones has [...] start to feel better. ??? Only take ibps-fig-utkwvkw or prescription medicines for pain, discomfort, or [...] 01/29/2014 Elsevier Interactive Patient Education ? 2017 [employer]. Obstetrics and Gynecology Urinary Tract Infection, Adult Introduction A urinary tract infection (UTI) is an infection of any part of the urinary tract. The urinary tract includes the: ??? Kidneys. ??? Ureters. ??? Bladder. ??? Urethra. These organs make, store, and get rid of pee (urine) in the body. Follow these instructions at home: ??? Take pldo-guh-cddrcvl and prescription medicines only as told by [...] them up o [facility] # [phone] o [facility] # [phone] o [facility] # [phone] ?? If you had cultures done and [...] quit. o National Network of Tobacco Cessation [id number]-GYGI-NOW o [employer] o [employer] Heart Association [phone] o Sai/Manuel Mccray [phone] FINANCIAL INFORMATION ?? [facility] provides financial counseling to anyone who requests our services. ?? Emergency Physicians are independently contracted to provide your care. You will receive a bill for the care provided to you by the Physician and/or the Physician Energy Conservation Specialist. This will be a separate bill [...] Patient Education Materials: ENT Otitis Media, Adult, Wxho-tc-Lzyj Obstetrics and Gynecology Urinary Tract Infection, Adult, Gelh-be-Rxlp Follow-Up Instructions: Follow Up With: Where: When: [...] as recommended Patient Signature / or Patient Safety Tech Provider Signature Date Date/Time 11/18/2018 21:52 Saint [...]
--- OUTSIDE RECORDS SUMMARY | 2025-01-31 10:21 | XMS_ITS | Encounter Summary ---
Author Organization [employer] ([place], [place], [place], [place]) Address [address] [place] [address] Care Team Providers Care Embedded Firmware Developer Name Role Phone Unavailable Primary Care Provider Unavailabl e Encounter Details Date Type Department Care Team (Late st Contact Info) Description 09/07/2018 Transcribed Document [facility] [place] [address] [place] [address] ProviderLaury MD [address] [place] [address] Social History Tobacco Use Types Packs/Day [...] - Laury ProviderMD - 09/07/2018 9:31 PM WARP PLACER [facility] ADDRESS [place], [place] [phone] Name:Crystal Archer Visit Date:09/07/2018 15:20:00 Emergency Department Care Providers: Physician: MEGHA MAN Physician: Our doctors and staff appreciate your choice of [facility] for your emergency medical care. Read these instructions carefully. Please call us if you have any questions about your medical problem. [facility] Emergency Department [phone] [facility] Emergency Department [phone] [facility] Emergency Department [phone] Patient Education Materials Gianni Crystal Jones has [...] 12/15/2006 Document Revised: 03/06/2017 Document Reviewed: 12/11/2014 [employer]omy Interactive Patient Education ? 2017 [employer] Inc. FOLLOW UP CARE Most conditions that [...] x-ray department to pick them up o [facility] # [phone] o [facility] # [phone] o [facility] # [phone] ?? If you had cultures done and [...] quit. o National Network of Tobacco Cessation [id number]-VJIG-NOW o [place] [employer] o [employer] Heart Association [phone] o Sai/Manuel Mccray [phone] FINANCIAL INFORMATION ?? [facility] provides financial counseling to anyone who requests our services. ?? Emergency Physicians are independently contracted to provide your care. You will receive a bill for the care provided to you by the Physician and/or the Physician Cleaning Crew Member. This will be a separate bill from [...] as recommended Patient Signature / or Patient Certified Retinal Angiographer Provider Signature Date documented in this encounter Plan of Treatment Not on file documented as of this encounter Visit Diagnoses Not on filedocumented in this encounter
--- OUTSIDE RECORDS SUMMARY | 2025-01-31 10:21 | XMS_ITS | Encounter Summary ---
Author Organization [employer] ([place], [place], [place], [place]) Address [address] [place] [address] Care Team Providers Care Bed Machine Operator Name Role Phone Unavailable Primary Care Provider Unavailabl e Encounter Details Date Type Department Care Team (Late st Contact Info) Description 01/18/2020 Transcribed Document [facility] Family Medicine [address] [place] [address] ProviderLaury MD [address] [place] [address] Social History Tobacco Use Types [...] Laury ProviderMD - 01/18/2020 8:28 PM CDT [place] Suicide Severity Rating Scale (C-SSRS) Entered On: 01/18/2020 21:29 EDT Performed On: 01/18/2020 21:29 EDT by JASON FUENTES RN [place] Suicide Severity Rating Scale (C-SSRS) CSSRS Past [...]
--- OUTSIDE RECORDS SUMMARY | 2025-01-31 10:21 | XMS_ITS | Encounter Summary ---
Author Organization [employer] ([place], [place], [place], [place]) Address [address] [place] [address] Care Team Providers Care Hookman Name Role Phone Unavailable Primary Care Provider Unavailabl e Encounter Details Date Type Department Care Team (Late st Contact Info) Description 08/03/2018 Transcribed Document [facility] [place] [address] [place] [address] ProviderLaury MD [address] [place] [address] Social History Tobacco Use Types Packs/Day [...] - Laury ProviderMD - 08/03/2018 7:32 PM PAPER CONE MACHINE TENDER [facility] Emergency Department Depart Summary PERSON INFORMATION Name Crystal Archer Age 27 Years 1990 Sex Female Language PCP Marital Status Phone [phone] Visit Id Visit Reason Specialty Enc Type Emergency Med Service Referred by Track Group GM [place] Discharge Tracking Id [id number] Checkout 08/03/2018 14:32:57 Checkin 08/03/2018 13:52:00 Acuity 3 - Urgent [facility] Dispo Type Arrival 08/03/2018 13:52:00 Reg Status LOS 000 00:40 Address: [address] [place] [address] [place] [address] POWERFORMS PHYSICIAN NOTES VITALS INFORMATION Vital Sign Triage Temp 98.1 Temp Route Oral/Mouth Pulse Rate 90 Respiratory Rate 18 Blood Pressure 152/ 87 LOCATION INFORMATION Arrival Nurse Unit Room Bed 08/03/2018 13:52:00 [facility] ED Waitroom ([facility]) 08/03/2018 13:55:29 [facility] ED 3 08/03/2018 14:32:57 [facility] ED Checkout ([facility]) MEDICAL INFORMATION Allergy Info: No Known Allergies PATIENT EDUCATION INFORMATION Instructions: Follow up: DIAGNOSIS documented in this encounter Plan of Treatment Not on file documented as of this encounter Visit Diagnoses Not on filedocumented in this encounter
--- OUTSIDE RECORDS SUMMARY | 2025-01-31 10:21 | XMS_ITS | Encounter Summary ---
Author Organization [facility] Address [address] [place] [address] Care Team Providers Care Disabilities Caregiver Name Role Phone Jaquan Conley MD Primary Care Provider + [phone] Encounter Details Date Type Department Care Team (Late st Contact Info) Description 11/10/2018 [facility] Encounter Historical OTTR [address] [place] [address] Yris Schwarz, RN [facility]-TRANSPLANT ADMINISTRATION Social History [...] . She stated she is going to [facility] because they told her she can continue [...] 10:50 AM EDT SW received message from psych kennel aide that the pt contacted her to cancel psych appt, as she has decided to pursue listing at [facility], instead of . Note to Coord. and Gold Buyer for awareness. * Progress Notes - Indira Márquez - 11/09/2018 4:12 PM EDT Mailed 11/24/18 [facility] eval appt schedule w/ map to pt. * Progress Notes - Daisy Gaming - 11/08/2018 8:09 AM EDT Per [facility] Gold Buyer, pt has an appt with [facility] on 11/24/18 at 1:30 pm. Note to Coordinator Nasrin for awareness. * Progress Notes - Daisy Gaming - 11/02/2018 11:14 AM EDT [facility] has sent another email following up on psych eval referral. SW will continue to follow. * Progress Notes - Daisy Gaming - 10/26/2018 3:02 PM EDT [facility] has sent another email to follow up on request for psych eval appt. SW will continue to follow. * Progress [...] between 9 and 12 due to child support specialist issues. Forwarding communication to . * Progress [...] However, pt is also considering going to [facility] since she was told they are less [...] needs to be r/s'd to October. Pt's 09/13/18 SW consult has been r/s'd to 10/17/18 @ 0830. Updated APM, SCM, OTTR, and [place]. Will call pt and mail updated ppw. [...] from pt asking for call back at [phone] to talk about a living donor. Called and spoke w/ pt. States she has several potential living donors and they have questions about the process, testing, and requirements. Informed pt that her potential living donors can call [phone] to discuss this and receive more info, [...] ICE packet to pt and cc'd referring . USPS [id number] 1984 81. documented in this [...] on filedocumented in this encounter Care Teams Disabilities Caregiver Relationship Specialty Start Date End Date Jaquan Conley MD [address] [place], [place] [phone] PCP - General 11/28/20 documented as of this encounter
--- OUTSIDE RECORDS SUMMARY | 2025-01-31 10:21 | XMS_ITS | Encounter Summary ---
Author Organization [employer] ([place], [place], [place], [place]) Address [address] [place] [address] Care Team Providers Care Irrigation Pump Installer Name Role Phone Unavailable Primary Care Provider Unavailabl e Encounter Details Date Type Department Care Team (Late st Contact Info) Description 08/03/2018 Transcribed Document [facility] [address] [place] [address] ProviderLaury MD [address] [place] [address] Social History Tobacco Use Types Packs/Day [...] - Laury ProviderMD - 08/03/2018 7:32 PM ASSISTANT CLINICAL DIRECTOR [facility] ADDRESS [place], [place] [phone] Name:Crystal Archer Visit Date:08/03/2018 13:52:00 Emergency Department Care Providers: Physician: MEGHA MAN Physician: Our doctors and staff appreciate your choice of [facility] for your emergency medical care. Read these instructions carefully. Please call us if you have any questions about your medical problem. [facility] Emergency Department [phone] [facility] Emergency Department [phone] [facility] Emergency Department [phone] Patient Education Materials Gianni Crystal Jones has [...] them up o [facility] # [phone] [facility] # [phone] o [facility] # [phone] ?? If you had cultures done and [...] quit. o National Network of Tobacco Cessation [id number]-NHPU-NOW o [employer] o [employer] [phone] o Sai/Manuel Mccray [phone] FINANCIAL INFORMATION ?? [facility] provides financial counseling to anyone who requests our services. ?? Emergency Physicians are independently contracted to provide your care. You will receive a bill for the care provided to you by the Physician and/or the Physician Independent Living Specialist. This will be a separate bill [...] as recommended Patient Signature / or Patient Dental Equipment Installer And Servicer Provider Signature Date Date/Time 08/03/2018 14:32 [facility] [...]
--- OUTSIDE RECORDS SUMMARY | 2025-01-31 10:21 | XMS_ITS | Clinical Summary ---
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 25 each 2 01/27/20 24 Active pantoprazole (Protonix) 40 MG EC tablet Take 1 tablet (40 mg) by mouth 1 (one) time each day before breakfast. Do not crush, chew, or split. Active Multiple Vitamin (multivitamin) tablet Take 1 tablet by mouth 1 (one) time each day. Active famotidine (Pepcid) 20 MG tablet Take by mouth. Ac tive valGANciclovir (Valcyte) 450 MG tablet Take 1 tablet (450 mg) by mouth 1 (one) time each day. Do not crush or chew. Active mycophenolate (Cellcept) 500 MG tablet Take by mouth 1 (one) time each day. Active tacrolimus 5 MG PO capsule Take 1 mg by mouth 2 (two) times a day. Four 1mg pills 2x daily Active insulin aspart (NovoLOG) 100 UNIT/ML injection vialIndications:Type 2 diabetes mellitus with other specified complication, with long-term current use of insulin ([facility]/HCC) To be used in insulin pump. MDD 75u 70 mL 1 10/09/19 25 Active glucose blood test stripIndications:Typ e 2 diabetes mellitus with other specified complication, with long-term current use of insulin (CMS/HCC) Use as instructed test blood glucose 2 times per day or to calibrate CGM 50 strip 5 10/10/19 25 Active Lancets misc Use 3 times/day 200 each 2 10/12/19 25 Active Semaglutide, 1 MG/DOSE, (Ozempic, 1 MG/DOSE,) 4 MG/3ML solution pen-injectorIndicati ons:Type 2 diabetes mellitus with other specified complication, with long-term current use of insulin (CMS/HCC) Inject 1 mg under the skin 1 (one) time per week. 3 mL 5 10/23/19 25 025 Active Active Problems Problem Noted Date Diagnosed [...] (12/21/2021): Left lower leg Restless leg 12/30/2015 Immunizations Immunization Administration Dates Next Due Hep A, Adult [...] 85 05/23/2024 10:50 AM EST Temperature 36.8 C (98.3 F) 11/26/2020 1:00 PM EDT Respiratory Rate - - Oxygen Saturation - - Inhaled Oxygen Concentration - - Weight 62.6 kg (138 lb) 10/09/2024 1:00 PM EDT Verbally per patient. Height 165.1 cm (5' 5 ) 05/23/2024 10:5 0 AM EST Body Mass Index 22.96 05/23/2024 10:50 AM EST Plan of Treatment Health Maintenance Due Date Last Done Comments [facility]-HIV Screening 1989 [facility]-/Child/Adol SDOH Screenings 1989 [id number] Vaccine (#1) 1994 Diabetes: Dental Exam 1999 [facility]-Varicella Vaccines (1 of 2 - 13+ 2-dose series) 2002 [facility]- SDOH Screenings 2007 [facility]-Adult SDOH Screenings 2007 [facility]-Hepatitis B Vaccines (1 of 3 - 19+ 3-dose series) 2008 [facility]-Zoster Vaccines (1 of 2) 2008 [facility]-Pap Smear 10/29/2017 10/29/2014 [facility]-Cervical Cancer Screening 10/30/2019 [facility]-HPV/Cotest 10/30/2019 10/29/2014 [facility]-Depression Screening 06/20/2024 06/20/2023 [facility]-Diabetes: Hemoglobin A1C 02/19/2025 08/22/2024, 05/23/2024, 06/20/2023, Additional history exists [facility]-Influenza Vaccine (#1) 03/18/202504/26, 04/13/2023, 04/07/2021, Additional history exists [facility]-DTaP,Tdap,and Td Vaccines (2 - Td or Tdap) 09/28/2033 09/29/2023, 02/15/2018 [facility]-Hepatitis A Vaccines Aged Out 01/29/2019, 07/18 No longer eligible based on patient's age to complete this topic [facility]-Hepatitis C Screening Completed 05/19/2023, 12/2019 [facility]-Pneumococcal Vaccine: Pediatrics (0 to 5 Years) and At-Risk Patients (6 to 49 Years) Completed 04/26/2024, 12/21/2018 HPV Vaccines Aged Out No longer eligi ble based on patient's age to complete this topic [facility]-HIB Vaccines Aged Out No longer e [...] complication, with long-term current use of insulin ([facility]) CYTO DATA CONVERSION Routine 10/29/2014 12:00 AM EDT from Last 3 Months or Most Recently Relevant to Health Maintenance Results * (ABNORMAL) POCT glycosylated hemoglobin (Hb A1C) (05/23/2024 11:03 AM EST) POCT Hemoglobin A1C 5.8 <5.7% Non-Diabe tic % [facility] Kit Lot Number [id number] [facility] Kit Expiration Date 03/17/2026 [facility] Blood Venous blood specimen / Unknown 05/23/2024 11:03 AM EST us Erica MENDEZ POINT OF CARE TEST EN TER/EDIT ORDERABLES Final Result [facility] [address] [place] [address] * Cytology (10/29/2014 12:00 AM EDT) 10/29/2014 10/31/2014 12: 33 PM EDT Narrative [facility] - 11/06/2014 11:15 AM EDT [facility] MR #: [id number] [facility] [address] [place], [place] [address] 1990 (Age: 24) FW Collect Date: 10/29/2014 00:00 Receipt Date: 10/31/2014 12:33 Page 1 DEPARTMENT OF PATHOLOGY AND LABORATORY MEDICINE CYTOPATHOLOGY REPORT Email: [email or web address] ATTENDING MD/Practitioner: John Celestin APRN Service: PAT Location: OUTS Reported: 11/06/2014 11:15 Collected: 10/29/2014 00:00 INTERPRETATION A. THIN PREP (CERVICAL/VAGINAL): NEGATIVE FOR INTRAEPITHELIAL LESION OR MALIGNANCY. SATISFACTORY FOR EVALUATION; ENDOCERVICAL/ TRANSFORMATION ZONE COMPONENT PRESENT. Slide scanned and imaged by [employer] ThinPrep Imaging System with manual review of all selected fernandez. Electronically Signed Out By MICK Melendez (ASCP) MICK Melendez (ASCP) Cervical cytology is a screening test primarily for squamous cancers and precursors and has associated false negative and positive results. New technologies such as liquid based sampling may decrease but will not eliminate all false negative results. Regular screening and follow-up of unexplained clinical signs and symptoms are recommended to minimize false negative results. Please see the ASCCP website (www.asccp.org) for followup recommendations. If HPV testing was requested, correlation with the results is suggested (please call Microbiology at [phone] for results). CLINICAL INFORMATION: Menstrual History: Cyclic Date of Last Menstrual Period: 10/03/14 Other Clinical Conditions: If ASCUS and > 24 years of age, HPV/DNA testing requested. SPECIMEN DESCRIPTION: A: THIN PREP (CERVICAL/VAGINAL) THIN PREP PROCESS CELLULAR ENHANCEMENT ICD: F: A; RT IMAGE [id number] SNOMED CODES: A; [id number] In cases where a pathologist has signed out the report, the service has been rendered in part by a resident. The signing pathologist has performed and is responsible for the reported pathologic evaluation. us Historical Provider MD LAB PATHOLOGY ORDERABLES Final Result [facility] from Last 3 Months or Most Recently Relevant to Health Maintenance Insurance [facility] MEDICAID Care Teams Straight Slicing Machine Operator Relationship Specialty Start Date End Date Jaquan Conley MD [address] [place] [id number] PCP - General 11/28/20
--- OUTSIDE RECORDS SUMMARY | 2025-01-31 10:21 | XMS_ITS | Encounter Summary ---
Author Organization [employer] ([place], [place], [place], [place]) Address [address] [place] [address] Care Team Providers Care Animal Science Instructor Name Role Phone Unavailable Primary Care Provider Unavailabl e Encounter Details Date Type Department Care Team (Late st Contact Info) Description 12/28/2019 Transcribed Document [facility] Family Medicine [address] [place] [address] ProviderLaury MD [address] [place] [address] Social History Tobacco Use Types Packs/Day [...] Numbers : Insurance 1 Health Plan: [facility] Policy Number: [id number] Authorization Number: Insurance Primary Name : [facility] Policy Number: [id number] Authorization Status-Primary : Admit approved Reference Number-Primary : [id number] Authorization Number-Primary : [id number] Number of Days Authorized-Primary : 0 Day(s) [...]
--- OUTSIDE RECORDS SUMMARY | 2025-01-31 10:21 | XMS_ITS | Encounter Summary ---
Author Organization [employer] ([place], [place], [place]) Address [address] [place] [address] Care Team Providers Care Nurse Navigator Name Role Phone Unavailable Primary Care Provider Unavailabl e Encounter Details Date Type Department Care Team (Late st Contact Info) Description 01/04/2020 Transcribed Document [facility] Family Medicine [facility] [place] [address] ProviderLaury MD [address] [place] [address] Social History Tobacco Use Types Packs/Day [...] Laparoscopic sleeve gastrectomy SURGEON: Xavi Mejia M.D. SUPERVISOR HOME ENERGY CONSULTANT: Daniel steinberg MD ANESTHESIA: General. SPECIMEN: Stomach. INDICATION FOR PROCEDURE: is a 29-year-old patient with senior living history of morbid obesity and CKD, has [...] was done, we proceeded to place the 54-[place] bougie down the esophagus into the stomach under direct visualization. When it was in the antrum, we proceeded to staple the stomach in a parallel manner to the greater curvature, creating a sleeve gastrectomy using the [place] stapler. We used green loads, all reinforced [...]
--- OUTSIDE RECORDS SUMMARY | 2025-01-31 10:21 | XMS_ITS | Encounter Summary ---
Author Organization [facility] ([place], [place], [place], [place]) Address [address] [place] [address] Care Team Providers Care Pinmaker Name Role Phone Unavailable Primary Care Provider Unavailabl e Encounter Details Date Type Department Care Team (Late st Contact Info) Description 09/07/2018 Transcribed Document [facility] Family Medicine [address] [place] [address] ProviderLaury MD [address] [place] [address] Social History Tobacco Use Types Packs/Day [...] - Laury ProviderMD - 09/07/2018 8:23 PM BOX GLUER [facility] Triage ED Entered On: 09/07/2018 15:30 [...] : No GI 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 : No Door To Door Sales Representative Hx : No Heart Attack : [...] Source : Stated Height Entry Format : [place] Height, Inches : 65 Inch(Converted to: 5 ft 5 Inch, 165.10 cm) Clinical Height : 165.1 cm Weight Source : Stated Type of Weight Measurement Est : [place] Weight, est lb : 215 lb Estimated Clinical Dosing Weight : 97.73 kg [place] Body Weight : 57 kg Body Surface Area Estimated : 2.12 m2 Body Mass Index Estimated : 35.85 kg/m2 Silvia Cole, - 09/07/2018 15:23 EST Medication List ED Medications Reviewed : Yes Source of Information : Patient Silvia Cole, - 09/07/2018 15:23 EST Medication List (As Of: 09/07/2018 15:30:02 EST) Home Meds Status: Processing ; Ordered As Mnemonic: [place] 5 mg-325 mg oral tablet ; Simple [...]
--- OUTSIDE RECORDS SUMMARY | 2025-01-31 10:21 | XMS_ITS | Encounter Summary ---
Author Organization [employer] ([place], [place], [place]) Address [address] [place] [address] Care Team Providers Care Dot Net Developer Name Role Phone Unavailable Primary Care Provider Unavailabl e Encounter Details Date Type Department Care Team (Late st Contact Info) Description 01/07/2020 Transcribed Document [facility] [place] [address] [place] [address] ProviderLaury MD [address] [place] [address] Social History Tobacco Use Types Packs/Day [...] for Hospitalization is a 29-year-old patient with shelter history [...] Int Units = 1 Cap, Oral, Weekly [place] 7.5/325 oral every 6 hours as needed for pain. Zofran 8mg oral every 12 hours as needed for nausea. Prilosec 20mg oral daily. Starts tomorrow. [2] Code Status No Code Status Order on Record Condition on Discharge Stable Consulting Physicians LARRY JAIMES MD-ANS Current Diet Order No qualifying data available. Patient Discharge Summary Orders Discharge Follow Up Instructions: followup next weekCall for [id number] Follow Up Instructions: call office on tuesday [...]
--- OUTSIDE RECORDS SUMMARY | 2025-01-31 10:21 | XMS_ITS | Encounter Summary ---
Author Organization [employer] ([place], [place], [place]) Address [address] [place] [address] Care Team Providers Care Laborer Poultry Hatchery Name Role Phone Unavailable Primary Care Provider Unavailabl e Encounter Details Date Type Department Care Team (Late st Contact Info) Description 09/26/2018 Transcribed Document [facility] Family Medicine [address] [place] [address] ProviderLaury MD [address] [place] [address] Social History Tobacco Use Types Packs/Day [...] Laury ProviderMD - 09/26/2018 10:56 PM CDT [facility] ADDRESS [place], [place] [phone] Name:Crystal Archer Visit Date:09/26/2018 16:44:00 Emergency Department Care Providers: Physician: INDIO PEREA Physician: Our doctors and staff appreciate your choice of [facility] for your emergency medical care. Read these instructions carefully. Please call us if you have any questions about your medical problem. [facility] Emergency Department [phone] [facility] Emergency Department [phone] [facility] Emergency Department [phone] Patient Education Materials Crystal Archer Karen has [...] 07/04/2006 Document Revised: 12/09/2016 Document Reviewed: 03/04/2014 [employer] Patient Education ? 2017 [employer] FOLLOW UP CARE Most conditions that [...] x-ray department to pick them up o [facility] # [phone] o [facility] # [phone] o [facility] # [phone] ?? If you had cultures done and [...] quit. o National Network of Tobacco Cessation BEbwllnjg0-707-MINC-NOW o [employer] o [employer] [phone] o Sai/Manuel Mccray [phone] FINANCIAL INFORMATION ?? [facility] provides financial counseling to anyone who requests our services. ?? Emergency Physicians are independently contracted to provide your care. You will receive a bill for the care provided to you by the Physician and/or the Physician Manager Of Pharmacy. This will be a separate bill from [...] as recommended Patient Signature / or Patient Insurance Loss Adjuster Provider Signature Date Electronically signed by Interface, Zuleyka Conversion Emergency Planning And Response Manager Cerner at 10/19/2022 11:22 AM CDT documented in this encounter Plan of Treatment Not on file documented as of this encounter Visit Diagnoses Not on filedocumented in this encounter
--- OUTSIDE RECORDS SUMMARY | 2025-01-31 10:21 | XMS_ITS | Encounter Summary ---
Author Organization [employer] ([place], [place], [place], [place]) Address [address] [place] [address] Care Team Providers Care Boiler/Chiller Technician Name Role Phone Unavailable Primary Care Provider Unavailabl e Encounter Details Date Type Department Care Team (Late st Contact Info) Description 08/24/2019 Transcribed Document [facility] [place] [facility] Family Medicine [address] [place] [address] ProviderLaury MD [address] [place] [address] Social History Tobacco Use Types Packs/Day [...] - Laury ProviderMD - 08/24/2019 2:30 PM WEB CONTENT EDITOR [facility] PreOp Summary Primary Physician: LARRY MARTINES MD-SUR Finalized Date/Time: 08/24/19 10:30:24 Pt. Name: FREDDIE RUGGIEROGARCIA /Sex: 1990 Female Med Rec #: [id number] Physician: LARRY MARTINES MD-SUR Financial #: [id number] Pt. Type: O Room/Bed: [facility]/ Admit/Disch: 08/24/19 09:42:00 - Institution: [facility] PreOp Case Times Entry 1 In Preop 08/24/19 10:06:00 Ready for Holding n/a Room Patient Ready for 08/24/19 10:30:00 Surgery Patient Out of Preop 08/24/19 10:30:00 Patient Out of n/a Holding Room [facility] PreOp Case Times Audit 08/24/19 10:30:23 Regulatory Technician: GEOVANNA Modifier: [email or web address] <+> 1 Patient Out of Preop <+> 1 Patient Ready for Surgery Finalized By: ANGE Green RN Document Signatures Signed By: ANGE Green RN 08/24/19 10:30 Electronically signed by Rochelle [facility] Conversion Business Education Teacher Cerner at 11/02/2022 10:00 AM CDT documented in this encounter Plan of Treatment Not on file documented as of this encounter Visit Diagnoses Not on filedocumented in this encounter
--- OUTSIDE RECORDS SUMMARY | 2025-01-31 10:21 | XMS_ITS | Referral Summary ---
Author Organization [employer] ([place], [place], [place], [place]) Address [address] [place] [address] Care Team Providers Care Iron Plastic Bullet Maker Name Role Phone Unavailable Primary Care [...] Date Blaine rded Speak language other than Burundian at home Not on file 07/30/2023 Want [...] Plan of Treatment Not on file Insurance Lb MONTALVO MARTIN URIEL LOWERY [id number] [facility] Advance Directives For more information, please contact: [phone] * Full Code (Latest Code Status on File) Date Activated Date Inactivated Comments 09/23/2022 6:27 AM 09/23/2022 11:31 AM
--- OUTSIDE RECORDS SUMMARY | 2025-01-31 10:21 | XMS_ITS | Encounter Summary ---
Author Organization [employer] ([place], [place], [place], [place]) Address [address] [place] [address] Care Team Providers Care Plastic Surgery Nurse Name Role Phone Unavailable Primary Care Provider Unavailabl e Encounter Details Date Type Department Care Team (Late st Contact Info) Description 09/26/2018 Transcribed Document [facility] [place] Family Medicine [address] [place] [address] ProviderLaury MD [address] [place] [address] Social History Tobacco Use Types Packs/Day [...] - Urgent [facility] Tracking Group : [facility] [place] Dre, Marry 09/26/2018 16:51 EDT ED Visit Reason : Urinary/Voiding Complaints Primary Care Provider : Rema Ferreira, Lump Receiver Accompanied By : Family/Spouse/SO Arrival Mode : [...] : No GI 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 : No Warp Hand Hx : No Heart Attack : No [...] Preferred Communication Mode : Verbal Languages : Frisian Child/Parent Domestic Concerns : None Threats of Suicide : No Marry Erickson 09/26/2018 16:51 EDT Height and Weight Height Source : Stated Height Entry Format : [place] Height, Inches : 65 Inch(Converted to: 5 ft 5 Inch, 165.10 cm) Clinical Height : 165.1 cm Weight Source : Stated Type of Weight Measurement Est : [place] Weight, est lb : 213 lb Estimated Clinical Dosing Weight : 96.82 kg [place] Body Weight : 57 kg Body Surface [...] ; Status: Documented ; Ordered As Mnemonic: [place] 5 mg-325 mg oral tablet ; Simple [...]
--- OUTSIDE RECORDS SUMMARY | 2025-01-31 10:21 | XMS_ITS | Encounter Summary ---
Author Organization [employer] ([place], [place], [place], [place]) Address [address] [place] [address] Care Team Providers Care Precision Machine Operator Name Role Phone Unavailable Primary Care Provider Unavailabl e Encounter Details Date Type Department Care Team (Late st Contact Info) Description 01/04/2020 Transcribed Document [facility] [place] [address] [place] [address] ProviderLaury MD [address] [place] [address] Social History Tobacco Use Types [...] OSMAR MCGRATH RN - 01/04/2020 9:08 EDT Electronically signed by Zuleyka Byrd Conversion Licensed Physical Therapist Assistant Cerner at 11/02/2022 10:09 AM CDT documented in this encounter Plan of Treatment Not on file documented as of this encounter Visit Diagnoses Not on filedocumented in this encounter
[2025-01-31 11:00] LABS: Hematocrit 36.5 % (37.0-47.0); Hemoglobin 11.6 g/dL (12.2-16.2); Immature Granulocytes % 0.4 %; Mean Corpuscular HGB Conc 31.8 g/dL (31.8-35.4); Mean Corpuscular Hemoglobin 29.1 pg (27.0-31.2); Mean Corpuscular Volume 91.7 fl (81-99); Nucleated Red Blood Cells % 0 %; Platelet Count 227 K/mm3 (142-424); Red Blood Count 3.98 M/mm3 (4.20-5.40); Red Cell Distribution Width-SD 45.3 fL; White Blood Count 2.8 K/mm3 (4.8-10.8)
[2025-01-31 11:31] LABS: Alanine Aminotransferase 31 U/L (12-78); Albumin Level 4.3 g/dl (3.5-5.0); Albumin/Globulin Ratio 1.8 (1.1-1.8); Alkaline Phosphatase 89 U/L (38-126); Anion Gap 19.2 mEq/L (5-15); Aspartate Amino Transferase 33 U/L (14-36); Bilirubin,Total 0.6 mg/dl (0.2-1.3); Blood Urea Nitrogen 13 mg/dl (7-17); Calcium 10.3 mg/dl (8.4-10.2); Carbon Dioxide 21 mmol/L (22.0-30.0); Chloride 107 mmol/L (98-107); Creatinine,Serum 0.90 mg/dl (0.52-1.04); Estimated Glomerular Filt Rate 71 ml/min (>60); GFR (African American) 86 ML/MIN (>60); Globulin 2.4 g/dL (1.3-3.2); Glucose 144 mg/dl (74-100); Magnesium 1.6 mg/dl (1.6-2.3); Phosphorous 3.4 mg/dl (2.5-4.5); Potassium 5.2 mmoL/L (3.5-5.1); Sodium 142 mmol/L (136-145); Total Protein,Serum 6.7 g/dl (6.3-8.2)
[2025-02-02 14:17] LABS: BKV DNA, Quant PCR, Plasma Negative (Negative)
[2025-02-04 14:10] LABS: Tacrolimus (FK506), Blood 7.1 ng/mL (5.0-20.0)
[2025-02-04 15:10] LABS: CMV PCR Negative (Negative)
== END 2025-01-31 23:59 | disposition home or self-care (01) ==
LOC: LAB 10:17
PROVIDERS: PCP Nurse Practitioner; Visit Provider Nurse Practitioner Family
DX: Z01.89 Encounter for other specified special examinations (principal); E11.9 Type 2 diabetes mellitus without complications; I10 Essential (primary) hypertension; E78.5 Hyperlipidemia, unspecified; Z94.0 Kidney transplant status; Z79.899 Other long term (current) drug therapy
CPT/HCPCS: 36415; 80053; 80197; 83735; 84100; 85025; 87496; 87799

== ENCOUNTER 2025-02-06 19:58 | Emergency (ER) | payer MEDICAID, SELFPAY ==
--- OUTSIDE RECORDS SUMMARY | 2025-02-06 10:45 | XMS_ITS | Encounter Summary ---
Author Organization [facility] Address [address] [place] [id number] Care Team Providers Care Barrel Ribs Solderer Name Role Phone Maria A Soria APRN Primary Care Provider [phone] Reason for Visit * Reason Comments Dysuria Encounter Details Date Type Department Care Team (Late st Contact Info) Description 02/06/2025 10:45 AM EDT Office Visit [facility] [address] [place] [phone] Maria A Soria APRN [address] [place] [address] Dysuria (Primary Dx) Social History [...] 10:29 AM EDT documented in this encounter Plan of Treatment Scheduled Orders Name Type Priority Associated Diagnoses Orde r Schedule Urine Culture - Urine, Urine, Clean Catch Microbiology Routine Dysuria Ordered: 02/06/2025 documented as of this encounter Visit Diagnoses Diagnosis Dysuria- Primary documented in this encounter Care Teams Barrel Ribs Solderer Relationship Specialty Start Date End Date Maria A Soria APRN [address] [place] [address] PCP - General Family Medicine 02/15/23 documented as of this encounter
--- OUTSIDE RECORDS SUMMARY | 2025-02-06 20:03 | XMS_ITS | Encounter Summary ---
Author Organization [facility] ([place], [place], [place], [place]) Address [address] [place] [address] Care Team Providers Care Upper Caser Name Role Phone Unavailable Primary Care Provider Unavailabl e Encounter Details Date Type Department Care Team (Late st Contact Info) Description 01/19/2020 Transcribed Document [facility] Medicine [address] [place] [address] ProviderLaury MD [address] [place] [address] Social History Tobacco Use Types Packs/Day [...] Laury ProviderMD - 01/19/2020 3:30 PM CDT [address] [address] FREDDIE ARCHER :1990 Visit Time:01/19/2020 [...] pharmacies and retail stores. ??? Eat bland, ddtq-tj-bektle foods in small amounts as you are [...] and water are not available, use hand funeral director. Make sure that everyone in your household washes their hands frequently. ??? Take migh-ohu-fgvpwmy and prescription medicines only as told by [...] and water are not available, use hand funeral director. Make sure that everyone in your household [...] 07/30/2016 Document Revised: 12/12/2018 Document Reviewed: 12/12/2018 [facility] Interactive Patient Education ?? 2020 [employer]. Hypoglycemia Hypoglycemia occurs when the level of [...] instructions at home: General instructions ??? Take zowr-mcw-aviepco and prescription medicines only as told by [...] 07/04/2006 Document Revised: 12/26/2018 Document Reviewed: 08/06/2016 [facility] Interactive Patient Education ?? 2020 [employer]. Emergency Awareness and Preventative Care STROKE is [...] Assistance with quitting is available by contacting 6-703-ANYC-NOW. This is a free resource providing counseling, [...] range between ( 1.0 and 7.0 ) Larue #: 0.73 K/uL -- Normal range between ( 0.24 and 0.82 ) Eos #: 0.24 K/uL -- Normal range between ( 0.04 and 0.54 ) Larue %: 7.3 % -- Normal range between [...] ) Urine Bilirubin Dipstick: Negative Urine Specific [place]: 1.012 -- Normal range between ( 1.005 [...] was given the opportunity to ask questions. Patient/Plug Making Operator Name: Patient/Plug Making Operator Signature: Relationship to Patient: Clinician/Hospital Plug Making Operator Signature: Date: Electronically signed by Christopher Byrd Conversion Plain Clothes Police Officer Keysha at 11/02/2022 10:10 AM CDT documented in this encounter Plan of Treatment Not on file documented as of this encounter Visit Diagnoses Not on filedocumented in this encounter
--- OUTSIDE RECORDS SUMMARY | 2025-02-06 20:03 | XMS_ITS | Encounter Summary ---
Author Organization [employer] ([place], [place], [place]) Address [address] [place] [address] Care Team Providers Care Cellophane Bath Mixer Name Role Phone Unavailable Primary Care Provider Unavailabl e Encounter Details Date Type Department Care Team (Late st Contact Info) Description 01/19/2020 Transcribed Document [facility] [place] [address] [place] [address] ProviderLaury MD [address] [place] [address] Social History Tobacco Use [...] 01/19/2020 15:30 EDT Electronically signed by Rochelle [facility] Conversion Metal [place]'S Assistant Cerner at 11/02/2022 10:02 AM CDT documented in this encounter Plan of Treatment Not on file documented as of this encounter Visit Diagnoses Not on filedocumented in this encounter
--- OUTSIDE RECORDS SUMMARY | 2025-02-06 20:03 | XMS_ITS | Encounter Summary ---
Author Organization [facility] Address [address] [place] [address] Care Team Providers Care It Analyst Name Role Phone Jaquan Conley MD Primary Care Provider [phone] Encounter Details Date Type Department Care Team (Late st Contact Info) Description 10/18/2018 [facility] Historical OTTR [address] [place] [address] Yris Schwarz, RN [facility] Social History [...] EST Start eval with ; pt left [place] per [facility] records. Pt has been 5 times; has 2 children, one of which is in [place] with her latest . documented in this encounter Plan of Treatment Not on file documented as of this encounter Visit Diagnoses Not on filedocumented in this encounter Care Teams It Analyst Relationship Specialty Start Date End Date Jaquan Conley MD [address] [place] [address] PCP - General 11/28/20 documented as of this encounter
--- OUTSIDE RECORDS SUMMARY | 2025-02-06 20:03 | XMS_ITS | Encounter Summary ---
Author Organization [employer] ([place], [place], [place]) Address [address] [place] [address] Care Team Providers Care Countersinker Name Role Phone Unavailable Primary Care Provider Unavailabl e Encounter Details Date Type Department Care Team (Late st Contact Info) Description 01/19/2020 Transcribed Document [facility] [place] [address] [place] [address] ProviderLaury MD [address] [place] [address] Social History Tobacco Use Types Packs/Day [...] Obtained From : Patient Primary Language : Spanish Preferred Communication Mode : Verbal Communication Barrier : None Hydro Excavation Operator Needed : No OCTAVIO BRADN RN - 01/19/2020 8:36 EDT Fall Risk [...] Scale Risk Level : 0-24 Low Risk [place] Fall Interventions : Adequate lighting, Bed in [...] Source : Stated Height Entry Format : [place] Height, Feet : 5 ft(Converted to: 152 cm, 60 Inch) Height, Inches : 5 Inch(Converted to: 0 ft 5 Inch, 12.70 cm) Clinical Height : 165.1 cm Weight Source : Standing scale Weight Entry Format : [place] Clinical Dosing Weight : 104.91 kg Weight, Pounds : 230.8 lb Body Surface Area (BSA) : 2.1 m2 Body Mass Index : 38.5 kg/m2 (HI) [place] Body Weight : 57 kg OCTAVIO BRAND [...] OCTAVIO BRAND RN - 01/19/2020 8:36 EDT [place] Suicide Severity Rating Scale (C-SSRS) CSSRS Past [...]
--- OUTSIDE RECORDS SUMMARY | 2025-02-06 20:03 | XMS_ITS | Encounter Summary ---
Author Organization [employer] ([place], [place], [place], [place]) Address [address] [place] [address] Care Team Providers Care Office Clerk Routine Name Role Phone Unavailable Primary Care Provider Unavailabl e Encounter Details Date Type Department Care Team (Late st Contact Info) Description 01/18/2020 Transcribed Document [facility] [place] [address] [place] [address] ProviderLaury MD [address] [place] [address] Social History Tobacco Use Types [...] EDT DCP GENERIC CODE Tracking Group : [facility] Tracking Acuity : [...] Problems(Active) At risk for sleep apnea (IMO :42769810 ) Name of Problem: At risk for sleep apnea ; Recorder: SYSTEM, SYSTEM; Confirmation: Confirmed ; Classification: Medical ; Code: [id number] ; Last Updated: 08/24/2019 10:25 EST ; Life Cycle Date: 08/24/2019 ; Life Cycle Status: Active ; Vocabulary: IMO DM (diabetes mellitus) (SNOMED CT :577586708 ) Name of Problem: DM (diabetes mellitus) ; Recorder: ANGE Green RN; Confirmation: Confirmed ; Classification: Medical ; Code: 536667704 ; Contributor System: PowerChart ; Last Updated: 08/24/2019 10:17 EST ; Life Cycle Date: 08/24/2019 ; Life Cycle Status: Active ; Vocabulary: SNOMED CT HTN (hypertension) (SNOMED CT :1412477331 ) Name of Problem: HTN (hypertension) ; Recorder: ANGE Green RN; Confirmation: Confirmed ; Classification: Medical ; Code: [id number] ; Contributor System: PowerChart ; Last Updated: 08/24/2019 10:16 EST ; Life Cycle Date: 08/24/2019 ; Life Cycle Status: Active ; Vocabulary: SNOMED CT Hyperkalemia (SNOMED CT :67138721 ) Name of Problem: Hyperkalemia ; Recorder: Noelle Umanzor Rn; Confirmation: Confirmed ; Classification: Medical ; Code: 15885270 ; Contributor System: PowerChart ; Last Updated: 10/03/2019 10:52 EDT ; Life Cycle Date: 10/03/2019 ; Life Cycle Status: Active ; Vocabulary: SNOMED CT Hyperlipemia (SNOMED CT :32352825 ) Name of Problem: Hyperlipemia ; Recorder: ANGE Green RN; Confirmation: Confirmed ; Classification: Medical ; Code: 04090461 ; Contributor System: PowerChart ; Last Updated: 08/24/2019 10:17 EST ; Life Cycle Date: 08/24/2019 ; Life Cycle Status: Active ; Vocabulary: SNOMED CT Kidney disease (SNOMED CT :830852648 ) Name of Problem: Kidney disease ; Recorder: ANGE Green RN; Confirmation: Confirmed ; Classification: Medical ; Code: 263972305 ; Contributor System: PowerChart ; Last Updated: 08/24/2019 10:17 EST ; Life Cycle Date: 08/24/2019 ; Life Cycle Status: Active ; Vocabulary: SNOMED CT Neuropathy (SNOMED CT :5025777327 ) Name of Problem: Neuropathy ; Recorder: ANGE Green RN; Confirmation: Confirmed ; Classification: Medical ; Code: 1462244358 ; Contributor System: PowerChart ; Last Updated: 08/24/2019 10:18 EST ; Life Cycle Date: 08/24/2019 ; Life Cycle Status: Active ; Vocabulary: SNOMED CT Retinopathy (SNOMED CT :89602038 ) Name of Problem: Retinopathy ; Recorder: Noelle Umanzor Rn; Confirmation: Confirmed ; Classification: Medical ; Code: 98344483 ; Contributor System: PowerChart ; Last Updated: 10/03/2019 10:52 EDT ; Life Cycle Date: 10/03/2019 ; Life Cycle Status: Active ; Vocabulary: SNOMED CT Diagnoses(Active) Dehydration Date: 01/18/2020 ; Diagnosis Type: Reason For Visit ; Confirmation: Complaint of ; Clinical Dx: Dehydration ; Classification: Medical ; Clinical Service: Emergency medicine ; Code: PNED ; Probability: 0 ; Diagnosis Code: [id number] Vomiting Date: 01/18/2020 ; Diagnosis Type: Reason For Visit ; Confirmation: Complaint of ; Clinical Dx: Vomiting ; Classification: Medical ; Clinical Service: Emergency medicine ; Code: PNED ; Probability: 0 ; Diagnosis Code: [id number] ED Height and Weight Height Source : Stated Height Entry Format : [place] Height, Feet : 5 ft(Converted to: 152 cm, 60 Inch) Height, Inches : 5 Inch(Converted to: 0 ft 5 Inch, 12.70 cm) Clinical Height : 165.1 cm Weight Source, ED : Standing scale Weight Entry Format : [place] Weight, Pounds : 230.8 lb Clinical Dosing Weight : 104.91 kg Body Surface Area (BSA) : 2.1 m2 Body Mass Index : 38.5 kg/m2 (HI) [place] Body Weight (IBW) : 56.59 kg MARKIE PANG RN - 01/18/2020 20:31 EDT documented in this encounter Plan of Treatment Not on file documented as of this encounter Visit Diagnoses Not on filedocumented in this encounter
--- OUTSIDE RECORDS SUMMARY | 2025-02-06 20:03 | XMS_ITS | Encounter Summary ---
Author Organization [employer] ([place], [place], [place], [place]) Address [address] [place] [address] Care Team Providers Care Pole Inspector Name Role Phone Unavailable Primary Care Provider Unavailabl e Encounter Details Date Type Department Care Team (Late st Contact Info) Description 09/15/2021 Transcribed Document [facility] [place] [address] [place] [address] ProviderLaury MD [address] [place] [address] Social History Tobacco Use Types [...] Date Blaine rded Speak language other than Polish at home Not on file 07/30/2023 Want [...] - Historical Provider, - 09/15/2021 11:12 AM COMPOSITION INSTRUCTOR Broset Violence Assessment Entered On: 09/15/2021 12:44 EST Performed On: 09/15/2021 12:43 EST by AUSTIN AVILES RN Broset Violence Assessment Broset Violence Checklist of Symptoms : None Broset Violence Symptoms Subtotal : 0 Broset Violence Symptoms Indicator : Low risk (0) AUSTIN AVILES RN - 09/15/2021 12:43 EST documented in this encounter Plan of Treatment Not on file documented as of this encounter Visit Diagnoses Not on filedocumented in this encounter
--- OUTSIDE RECORDS SUMMARY | 2025-02-06 20:03 | XMS_ITS | Encounter Summary ---
Author Organization [employer] ([place], [place], [place], [place]) Address [address] [place] [address] Care Team Providers Care Educational Aide Name Role Phone Unavailable Primary Care Provider Unavailabl e Encounter Details Date Type Department Care Team (Late st Contact Info) Description 01/19/2020 Transcribed Document [facility] [place] [facility] [place] [address] ProviderLaury MD [address] [place] [address] [id number] Social History Tobacco Use Types Packs/Day Years [...] documented in chart. Surgical history: section x2 (41300268). Dilation and curettage (51976340). Tubal ligation ([id number]). wisdom teeth. kidney biopsy. EGD. Stomach biopsy. Gastric sleeve ([id number]).. Family history: Not significant, No family history [...] EDT Height Source Stated Height Entry Format [place] Height/Length, KAZAKH (ft) 5 ft Height/Length KAZAKH 5 Inch CLINICALHEIGHT 165.1 cm [place] Body Weight 56.59 kg Weight Source, ED Standing scale Weight Entry Format [place] Weight Macedonian lb 230.8 lb CLINICALWEIGHT 104.91 kg Body [...] 39.0 % Lymph # 3.92 K/uL HI Glades % 7.3 % Glades # 0.73 K/uL Eos % 2.4 % Eos # 0.24 K/uL Baso % 0.4 % Baso # 0.04 K/uL Slide Review No IG# 0 x10(3)/uL IG% 0 % . 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
--- OUTSIDE RECORDS SUMMARY | 2025-02-06 20:03 | XMS_ITS | Encounter Summary ---
Author Organization [employer] ([place], [place], [place]) Address [address] [place] [address] Care Team Providers Care Wound Care Center Consultant Name Role Phone Unavailable Primary Care Provider Unavailabl e Encounter Details Date Type Department Care Team (Late st Contact Info) Description 01/19/2020 Transcribed Document [facility] [place] [address] [place] [address] ProviderLaury MD [address] [place] [address] Social History Tobacco Use Types Packs/Day [...] On: 01/19/2020 8:59 EDT by CRISTOBAL HANSEN RN-Slp Readmission Questionnaire Patient Status at Discharge, Previous [...] Was Readm Preventable : No CRISTOBAL HANSEN RN-Slp - 01/19/2020 8:59 EDT Electronically signed by Rochelle [facility] Conversion Greeting Card Writer Cerner at 11/02/2022 9:56 AM CDT documented in this encounter Plan of Treatment Not on file documented as of this encounter Visit Diagnoses Not on filedocumented in this encounter
--- OUTSIDE RECORDS SUMMARY | 2025-02-06 20:03 | XMS_ITS | Encounter Summary ---
Author Organization [employer] ([place], [place], [place], [place]) Address [address] [place] [address] Care Team Providers Care Mask Former Name Role Phone Unavailable Primary Care Provider Unavailabl e Encounter Details Date Type Department Care Team (Late st Contact Info) Description 01/19/[address] [facility] [place] Family Medicine [address] [place] [address] ProviderLaury MD [address] [place] [address] [id number] Social History Tobacco Use Types Packs/Day Years [...] Physician Requested for Consult : LARRY MARTINES MD-[facility] Physician Covering for Consult : LARRY MARTINES MD-BRANDEE Date and Time Call Returned : 01/19/2020 9:04 EDT ASPEN CROWDER - 01/19/2020 9:04 EDT Electronically signed by Rochelle [facility] Conversion Site Supervising Technical Operator Cerner at 11/02/2022 10:05 AM CDT documented in this encounter Plan of Treatment Not on file documented as of this encounter Visit Diagnoses Not on filedocumented in this encounter
--- OUTSIDE RECORDS SUMMARY | 2025-02-06 20:03 | XMS_ITS | Encounter Summary ---
Author Organization [employer] ([place], [place], [place], [place]) Address [address] [place] [address] Care Team Providers Care Rehab Spec Name Role Phone Unavailable Primary Care Provider Unavailabl e Encounter Details Date Type Department Care Team (Late st Contact Info) Description 01/19/2020 Transcribed Document [facility] [place] Family Medicine [address] [place] [address] ProviderLaury MD [address] [place] [address] Social History Tobacco Use Types Packs/Day [...]
--- OUTSIDE RECORDS SUMMARY | 2025-02-06 20:03 | XMS_ITS | Encounter Summary ---
Author Organization [employer] ([place], [place], [place], [place]) Address [address] [place] [address] Care Team Providers Care Fireworks Assembler Name Role Phone Unavailable Primary Care Provider Unavailabl e Encounter Details Date Type Department Care Team (Late st Contact Info) Description 01/19/2020 Transcribed Document [facility] [place] Family Medicine [address] [place] [address] ProviderLaury MD [address] [place] [address] Social History Tobacco Use Types [...] pharmacies and retail stores. ??? Eat bland, rxou-og-tqohic foods in small amounts as you are [...] and water are not available, use hand polisher implant. Make sure that everyone in your household washes their hands frequently. ??? Take pedf-lpv-ylvxgne and prescription medicines only as told by [...] and water are not available, use hand polisher implant. Make sure that everyone in your household [...] 07/30/2016 Document Revised: 12/12/2018 Document Reviewed: 12/12/2018 [employer] Interactive Patient Education ? 2020 [employer] Endocrinology Hypoglycemia Hypoglycemia occurs when the [...] instructions at home: General instructions ??? Take mrup-xgs-aerplcp and prescription medicines only as told by [...] 07/04/2006 Document Revised: 12/26/2018 Document Reviewed: 08/06/2016 [employer] Interactive Patient Education ? 2020 [employer]. documented in this encounter Plan of Treatment Not on file documented as of this encounter Visit Diagnoses Not on filedocumented in this encounter
--- OUTSIDE RECORDS SUMMARY | 2025-02-06 20:03 | XMS_ITS | Encounter Summary ---
Author Organization [employer] ([place], [place], [place], [place]) Address [address] [place] [address] Care Team Providers Care Traction Power Engineer Name Role Phone Unavailable Primary Care Provider Unavailabl e Encounter Details Date Type Department Care Team (Late st Contact Info) Description 01/19/2020 Transcribed Document [facility] [place] [facility] [place] [address] [place] [address] ProviderLaury MD [address] [place] [address] Social History Tobacco Use Types Packs/Day [...] back method Teaching Evaluation : Verbalizes understanding OTCAVIO BRAND RN - 01/19/2020 16:16 EDT Electronically signed by [facility] Conversion Access Assoc Cerner at 11/02/2022 9:56 AM CDT documented in this encounter Plan of Treatment Not on file documented as of this encounter Visit Diagnoses Not on filedocumented in this encounter
--- OUTSIDE RECORDS SUMMARY | 2025-02-06 20:04 | XMS_ITS | Encounter Summary ---
Author Organization [employer] ([place], [place], [place], [place]) Address [address] [place] [address] Care Team Providers Care Rolloff Truck Driver Name Role Phone Unavailable Primary Care Provider Unavailabl e Encounter Details Date Type Department Care Team (Late st Contact Info) Description 01/05/2020 Transcribed Document [facility] [place] Family Medicine [address] [place] [address] ProviderLaury MD [address] [place] [address] Social History Tobacco Use Types Packs/Day [...]
--- OUTSIDE RECORDS SUMMARY | 2025-02-06 20:04 | XMS_ITS | Encounter Summary ---
Author Organization [facility] Address [address] 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
--- OUTSIDE RECORDS SUMMARY | 2025-02-06 20:04 | XMS_ITS | Encounter Summary ---
Author Organization [employer] ([place], [place], [place], [place]) Address [address] [place] [address] Care Team Providers Care Ballet Dancer Name Role Phone Unavailable Primary Care Provider Unavailabl e Encounter Details Date Type Department Care Team (Late st Contact Info) Description 01/08/2019 Transcribed Document [facility] [place] Medicine [address] [place] [address] ProviderLaury MD [address] [place] [address] Social History Tobacco Use Types Packs/Day [...] Laury ProviderMD - 01/08/2019 12:31 AM CDT [facility] Emergency Department Depart Summary PERSON INFORMATION Name Crystal Archer Age 28 Years 1990 Sex Female Language PCP Marital Status Phone [id number] Visit Id Visit Reason Specialty Enc Type Emergency Med Service Referred by Track Group GM Jeffers Discharge Tracking Id [id number] Checkout 01/07/2019 20:31:56 Checkin 01/07/2019 18:52:00 Acuity 3 - Urgent BBK Dispo Type Arrival 01/07/2019 18:52:00 Reg Status LOS 000 01:39 Address: [address] [place] [address] [place] [address] POWERFORMS PHYSICIAN NOTES VITALS INFORMATION Vital Sign Triage Temp 99.4 Temp Route Pulse Rate 96 Respiratory Rate 16 Blood Pressure 137/ 85 LOCATION INFORMATION Arrival Nurse Unit Room Bed 01/07/2019 18:52:00 [facility] ED Waitroom (K) 01/07/2019 20:31:[address] [facility] ED Checkout (K) MEDICAL INFORMATION Allergy Info: NSAIDs PATIENT EDUCATION INFORMATION Instructions: Follow up: DIAGNOSIS documented in this encounter Plan of Treatment Not on file documented as of this encounter Visit Diagnoses Not on filedocumented in this encounter
--- OUTSIDE RECORDS SUMMARY | 2025-02-06 20:04 | XMS_ITS | Encounter Summary ---
Author Organization [employer] ([place], [place], [place], [place]) Address [address] [place] [address] Care Team Providers Care Mouse Breeder Name Role Phone Unavailable Primary Care Provider Unavailabl e Encounter Details Date Type Department Care Team (Late st Contact Info) Description 01/08/2019 Transcribed Document [facility] [place] Family Medicine [address] [place] [address] ProviderLaury MD [address] [place] [address] [phone] Social History Tobacco Use Types Packs/Day Years [...] Laury ProviderMD - 01/08/2019 12:31 AM CDT [facility] ADDRESS [place], [place] [phone] Name:Crystal Archer Visit Date:01/07/2019 18:52:00 Emergency Department Care Providers: Physician: Physician: Our doctors and staff appreciate your choice of [facility] for your emergency medical care. Read these instructions carefully. Please call us if you have any questions about your medical problem. [facility] Emergency Department [phone] [facility] Emergency Department [phone] [facility] Emergency Department [phone] Patient Education Materials Crystal Acrher Karen has been given the following patient [...] to pick them up o [facility] # [phone] o [facility] # [phone] o [facility] # [phone] ?? If you had cultures done and [...] quit. o National Network of Tobacco Cessation PAqklwmad3-342-UKVI-NOW o [place] Lung Association o [place] Heart Association [phone] o Sai/Manuel Mahendra [phone] FINANCIAL INFORMATION ?? [facility] provides financial counseling to anyone who requests our services. ?? Emergency Physicians are independently contracted to provide your care. You will receive a bill for the care provided to you by the Physician and/or the Physician Wire Mesh Gate Assembler. This will be a separate bill from [...] as recommended Patient Signature / or Patient Picket Labor Union Provider Signature Date documented in this encounter Plan of Treatment Not on file documented as of this encounter Visit Diagnoses Not on filedocumented in this encounter
--- OUTSIDE RECORDS SUMMARY | 2025-02-06 20:04 | XMS_ITS | Encounter Summary ---
Author Organization [employer] ([place], [place], [place], [place]) Address [address] [place] [address] Care Team Providers Care Drilling Superintendent Name Role Phone Unavailable Primary Care Provider Unavailabl e Encounter Details Date Type Department Care Team (Late st Contact Info) Description 10/31/2018 Transcribed Document [facility] [place] [address] [place] [address] ProviderLaury MD [address] [place] [address] Social History Tobacco Use Types Packs/Day [...] Laury ProviderMD - 10/31/2018 1:17 AM CDT [facility] ADDRESS [place], [place] [phone] Name:Crystal Archer Visit Date:10/30/2018 20:23:00 Emergency Department Care Providers: Physician: MEGHA MAN Physician: Our doctors and staff appreciate your choice of [facility] for your emergency medical care. Read these instructions carefully. Please call us if you have any questions about your medical problem. [facility] Emergency Department [phone] [facility] Emergency Department [phone] [facility] Emergency Department [phone] Patient Education Materials Gianni Crystal Jones has [...] 10/19/2011 Document Revised: 11/11/2016 Document Reviewed: 06/30/2015 [employer] Interactive Patient Education ? 2017 [employer] FOLLOW UP CARE Most conditions that [...] up o [facility] # [phone] o [facility] # [phone] o [facility] # [phone] ?? If you had cultures done and [...] quit. o National Network of Tobacco Cessation [id number]-ZJEM-NOW o [place] Lung Association o [place] Heart Association [phone] o Sai/Manuel Mccray [phone] FINANCIAL INFORMATION ?? [facility] provides financial counseling to anyone who requests our services. ?? Emergency Physicians are independently contracted to provide your care. You will receive a bill for the care provided to you by the Physician and/or the Physician Forestry Laborer. This will be a separate bill from [...] as recommended Patient Signature / or Patient All Around Presser Provider Signature Date Date/Time 10/30/2018 21:17 Saint [...] Dose Frequency amLODIPine 2.5 mg oral tablet [place] 5 mg-325 mg oral tablet Comment: This [...]
--- OUTSIDE RECORDS SUMMARY | 2025-02-06 20:04 | XMS_ITS | Encounter Summary ---
Author Organization [employer] ([place], [place], [place], [place]) Address [address] [place] [address] Care Team Providers Care Paddle Dyeing Machine Operator Name Role Phone Unavailable Primary Care Provider Unavailabl e Encounter Details Date Type Department Care Team (Late st Contact Info) Description 01/07/2020 Transcribed Document [facility] [place] Family Medicine [address] [place] [address] ProviderLaury MD [address] [place] [address] Social History Tobacco Use Types Packs/Day [...] for Hospitalization is a 29-year-old patient with fci history of morbid obesity and CKD, has [...] Int Units = 1 Cap, Oral, Weekly [place] 7.5/325 oral every 6 hours as needed for pain. Zofran 8mg oral every 12 hours as needed for nausea. Prilosec 20mg oral daily. Starts tomorrow. [2] Code Status No Code Status Order on Record Condition on Discharge Stable Consulting Physicians LARRY JAIMES MD-ANS Current Diet Order No qualifying data available. Patient Discharge Summary Orders Discharge Follow Up Instructions: followup next weekCall for [id number] Follow Up Instructions: call office on tuesday [...]
--- OUTSIDE RECORDS SUMMARY | 2025-02-06 20:04 | XMS_ITS | Encounter Summary ---
Author Organization [employer] ([place], [place], [place], [place]) Address [address] [place] [address] Care Team Providers Care Vessel Master Name Role Phone Unavailable Primary Care Provider Unavailabl e Encounter Details Date Type Department Care Team (Late st Contact Info) Description 08/03/2018 Transcribed Document [facility] [place] [address] [place] [address] ProviderLaury MD [address] [place] [address] Social History Tobacco Use Types Packs/Day [...] - Laury ProviderMD - 08/03/2018 7:32 PM DATABASE [facility] ADDRESS [place], [place] [phone] Name:Crystal Archer Visit Date:08/03/2018 13:52:00 Emergency Department Care Providers: Physician: MEGHA MAN Physician: Our doctors and staff appreciate your choice of [facility] for your emergency medical care. Read these instructions carefully. Please call us if you have any questions about your medical problem. [facility] Emergency Department [phone] [facility] Emergency Department [phone] [facility] Emergency Department [phone] Patient Education Materials Gianni Crystal Jones has [...] x-ray department to pick them up o [facility] # [phone] [facility] # [phone] o [facility] # [phone] ?? If you had cultures done and [...] quit. o National Network of Tobacco Cessation [id number]-WICD-NOW o [place] Lung Association o Citizen [place] Heart Association [phone] o Sai/Manuel Mccray [phone] FINANCIAL INFORMATION ?? [facility] provides financial counseling to anyone who requests our services. ?? Emergency Physicians are independently contracted to provide your care. You will receive a bill for the care provided to you by the Physician and/or the Physician Costume Specialist. This will be a separate bill [...] as recommended Patient Signature / or Patient Stock Counter Provider Signature Date Electronically signed by Zuleyka Byrd Conversion Administrative Medical Director Sandraner at 10/19/2022 11:22 AM CDT documented in this encounter Plan of Treatment Not on file documented as of this encounter Visit Diagnoses Not on filedocumented in this encounter
--- OUTSIDE RECORDS SUMMARY | 2025-02-06 20:04 | XMS_ITS | Encounter Summary ---
Author Organization [employer] ([place], [place], [place], [place]) Address [address] [place] [address] Care Team Providers Care Trace Evidence Technician Name Role Phone Unavailable Primary Care Provider Unavailabl e Encounter Details Date Type Department Care Team (Late st Contact Info) Description 09/07/2018 Transcribed Document [facility] [place] Family Medicine [address] [place] [address] ProviderLaury MD [address] [place] [address] Social History Tobacco Use Types Packs/Day [...] - Laury ProviderMD - 09/07/2018 9:31 PM ASSISTANT [facility] ADDRESS [place], [place] [phone] Name:Crystal Archer Visit Date:09/07/2018 15:20:00 Emergency Department Care Providers: Physician: MEGHA MAN Physician: Our doctors and staff appreciate your choice of [facility] for your emergency medical care. Read these instructions carefully. Please call us if you have any questions about your medical problem. [facility] [place] [facility] Emergency Department [phone] [facility] Emergency Department [phone] [facility] Emergency Department [phone] Patient Education Materials Gianni Crystal Jones has [...] 12/15/2006 Document Revised: 03/06/2017 Document Reviewed: 12/11/2014 [employer] Interactive Patient Education ? 2017 [employer]. FOLLOW UP CARE Most conditions that [...] up o [facility] [place] [facility] # [phone] o [facility] # [phone] o [facility] # [phone] ?? If you had cultures done and [...] quit. o National Network of Tobacco Cessation MTiwslpxn4-806-OGWT-NOW o [place] Lung Association o [employer] Heart Association [phone] o Sai/Manuel Mccray [phone] FINANCIAL INFORMATION ?? [facility] provides financial counseling to anyone who requests our services. ?? Emergency Physicians are independently contracted to provide your care. You will receive a bill for the care provided to you by the Physician and/or the Physician Fruit Pitter. This will be a separate bill from [...] as recommended Patient Signature / or Patient Wireless Sales Consultant Provider Signature Date documented in this encounter Plan of Treatment Not on file documented as of this encounter Visit Diagnoses Not on filedocumented in this encounter
--- OUTSIDE RECORDS SUMMARY | 2025-02-06 20:04 | XMS_ITS | Encounter Summary ---
Author Organization [employer] ([place], [place], [place], [place]) Address [address] [place] [address] Care Team Providers Care Tow Operator Name Role Phone Unavailable Primary Care Provider Unavailabl e Encounter Details Date Type Department Care Team (Late st Contact Info) Description 09/07/2018 Transcribed Document [facility] [place] Family Medicine [address] [place] [address] ProviderLaury MD [address] [place] [address] Social History Tobacco Use Types Packs/Day [...] - Laury ProviderMD - 09/07/2018 8:23 PM CORE RESCUER BBK Triage ED Entered On: 09/07/2018 15:30 [...] : No GI 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 : No Recruiter Coordinator Hx : No Heart Attack : No [...] Source : Stated Height Entry Format : [place] Height, Inches : 65 Inch(Converted to: 5 ft 5 Inch, 165.10 cm) Clinical Height : 165.1 cm Weight Source : Stated Type of Weight Measurement Est : [place] Weight, est lb : 215 lb Estimated Clinical Dosing Weight : 97.73 kg [place] Body Weight : 57 kg Body Surface Area Estimated : 2.12 m2 Body Mass Index Estimated : 35.85 kg/m2 Silvia Cole, - 09/07/2018 15:23 EST Medication List ED Medications Reviewed : Yes Source of Information : Patient Silvia Cole, - 09/07/2018 15:23 EST Medication List (As Of: 09/07/2018 15:30:02 EST) Home Meds Status: Processing ; Ordered As Mnemonic: [place] 5 mg-325 mg oral tablet ; Simple [...]
--- OUTSIDE RECORDS SUMMARY | 2025-02-06 20:04 | XMS_ITS | Encounter Summary ---
Author Organization [employer] ([place], [place], [place], [place]) Address [address] [place] [address] Care Team Providers Care Printed Circuit Board Panels Deburrer Name Role Phone Unavailable Primary Care Provider Unavailabl e Encounter Details Date Type Department Care Team (Late st Contact Info) Description 11/19/2018 Transcribed Document [facility] [place] [address] [place] [address] ProviderLaury MD [address] [place] [address] Social History Tobacco Use Types Packs/Day [...] : No GI 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 : No Union Organizer Hx : No Heart Attack : No [...] Preferred Communication Mode : Verbal Languages : Malay Child/Parent Domestic Concerns : None Threats of Suicide : No Marry Erickson 11/18/2018 20:14 EDT Height and Weight Height Source : Stated Height Entry Format : Boyle Height, Inches : 65 Inch(Converted to: 5 ft 5 Inch, 165.10 cm) Clinical Height : 165.1 cm Weight Source : Bed scale Weight Entry Format : Boyle Weight, Pounds : 220 lb Clinical Dosing Weight : 100 kg Body Surface Area-(BSA) : 2.14 m2 Body Mass Index : 36.7 kg/m2 (HI) [place] Body Weight : 57 kg Marry Erickson [...]
--- OUTSIDE RECORDS SUMMARY | 2025-02-06 20:04 | XMS_ITS | Encounter Summary ---
Author Organization [employer] ([place], [place], [place], [place]) Address [address] [place] [address] Care Team Providers Care Laborer Cutting Tool Name Role Phone Unavailable Primary Care Provider Unavailabl e Encounter Details Date Type Department Care Team (Late st Contact Info) Description 09/26/2018 Transcribed Document [facility] [place] [address] [place] [address] ProviderLaury MD [address] [place] [address] Social History Tobacco Use Types Packs/Day [...] - Urgent BBK Tracking Group : [facility] [place] Dre, Marry 09/26/2018 16:51 EDT ED Visit Reason : Urinary/Voiding Complaints Primary Care Provider : Rema Ferreira, News Director Accompanied By : Family/Spouse/SO Arrival Mode : [...] : No GI 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 : No Ball Shagger Hx : No Heart Attack : No [...] Source : Stated Height Entry Format : Giles Height, Inches : 65 Inch(Converted to: 5 ft 5 Inch, 165.10 cm) Clinical Height : 165.1 cm Weight Source : Stated Type of Weight Measurement Est : Giles Weight, est lb : 213 lb Estimated Clinical Dosing Weight : 96.82 kg [place] Body Weight : 57 kg Body Surface [...] ; Status: Documented ; Ordered As Mnemonic: [place] 5 mg-325 mg oral tablet ; Simple [...]
--- OUTSIDE RECORDS SUMMARY | 2025-02-06 20:04 | XMS_ITS | Clinical Summary ---
Author Organization [facility] Address [address] [place] [address] Care Team Providers Care Civil Cad Designer Name Role Phone Unavailable Primary Care [...] therelease of HIV test results or diagnoses. [id number] Allergies Active Allergy Reactions Criticality Noted [...] - Td or Tdap) 09/28/2033 09/29/2023 Insurance [facility] care Address: [facility] [id number] [place] [phone]
--- OUTSIDE RECORDS SUMMARY | 2025-02-06 20:04 | XMS_ITS | Encounter Summary ---
Author Organization [employer] ([place], [place], [place], [place]) Address [address] [place] [address] Care Team Providers Care Algebra Tutor Name Role Phone Unavailable Primary Care Provider Unavailabl e Encounter Details Date Type Department Care Team (Late st Contact Info) Description 01/08/2019 Transcribed Document [facility] [place] [address] [place] [address] ProviderLaury MD [address] [place] [address] [id number] Social History Tobacco Use Types Packs/Day Years [...] Laury ProviderMD - 01/08/2019 12:31 AM CDT [facility] ADDRESS [place], [place] [phone] Name:Crystal Archer Visit Date:01/07/2019 18:52:00 Emergency Department Care Providers: Physician: Physician: Our doctors and staff appreciate your choice of [facility] for your emergency medical care. Read these instructions carefully. Please call us if you have any questions about your medical problem. [facility] Emergency Department [phone] [facility] Emergency Department [phone] [facility] Emergency Department [phone] Patient Education Materials Crystal Archer Karen has [...] department to pick them up o [facility] # [phone] o [facility] # [phone] o [facility] # [phone] ?? If you had cultures done and [...] quit. o National Network of Tobacco Cessation [id number]-YHHI-NOW o [place] [employer] o [employer] [employer] 5-740276-8935 o Sai/Manuel Mahendra [phone] FINANCIAL INFORMATION ?? [facility] provides financial counseling to anyone who requests our services. ?? Emergency Physicians are independently contracted to provide your care. You will receive a bill for the care provided to you by the Physician and/or the Physician Cvicu Rn. This will be a separate bill from [...] Patient Signature / or Patient Real Estate Associate Attorney Provider Signature Date Date/Time 01/07/2019 20:31 [facility] [...] Date Electronically signed by Zuleyka Byrd Conversion Data Analytics Chief Scientist Keysha at 10/19/2022 11:23 AM CDT documented in this encounter Plan of Treatment Not on file documented as of this encounter Visit Diagnoses Not on filedocumented in this encounter
--- OUTSIDE RECORDS SUMMARY | 2025-02-06 20:04 | XMS_ITS | Encounter Summary ---
Author Organization [employer] ([place], [place], [place], [place]) Address [address] [place] [address] Care Team Providers Care Brickmason Supervisor Name Role Phone Unavailable Primary Care Provider Unavailabl e Encounter Details Date Type Department Care Team (Late st Contact Info) Description 08/24/2019 Transcribed Document [facility] [place] [address] [place] [address] ProviderLaury MD [address] [place] [address] Social History Tobacco Use Types Packs/Day [...] - Historical ProviderMD - 08/24/2019 11:11 AM BINDER CUTTER HAND [facility] End[facility] IntraOp Summary Primary Physician: LARRY MARTINES MD-SUR Finalized Date/Time: 08/24/19 12:55:12 Pt. Name: GIANNI FREDDIE FELICIA /Sex: 1990 Female Med Rec #: [id number] Physician: LARRY MARTINES MD-BRANDEE Financial #: [id number] Pt. Type: O Room/Bed: [facility] Admit/Disch: 08/24/19 09:42:00 - Institution: [facility] Endo - Case Attendance Entry 1 Entry 2 Entry 3 Case Attendee LARRY MARTINES Childress, TOBI J, RN ELLIOTT MOURA TECH MD-SUR Role Performed Surgeon/Proceduralist, Music Store Manager, First Scrub, First First Time In 08/24/19 11:09:00 08/24/19 11:09:00 08/24/19 11:09:00 Time Out 08/24/19 11:15:00 08/24/19 11:15:00 08/24/19 11:15:00 Procedure Gastric Biopsy Esophagogastroduodenosco Esophagogastroduodenosco py, Gastric Biopsy py, Gastric Biopsy Other Attendee Superficial Wound Closed By: Last Modified By: ANGE Green RN Childress, TOBI J, RN Childress, TOBI J, RN 08/24/19 11:14:47 08/24/19 11:14:47 08/24/19 11:14:47 Entry 4 Case Attendee MARGRET MCCULLOUGH FILM DRYING MACHINE OPERATOR Role Performed FILM DRYING MACHINE OPERATOR/Nurse Machine Milker Time In 08/24/19 11:09:00 Time Out 08/24/19 11:15:00 Procedure Esophagogastroduodenosco py, Gastric Biopsy Other Attendee Superficial Wound Closed By: Last Modified By: ANGE Green RN 08/24/19 11:14:47 [facility] Endo - Case Attendance Audit 08/24/19 11:14:47 Longshore Equipment Operator: GEOVANNA Modifier: [email or web address] 1 <+> Time Out 1 <*> Procedure Gastric Biopsy 2 <+> Time Out 2 <*> Procedure Esophagogastroduodenoscopy, Gastric Biopsy 3 <+> Time Out 3 <*> Procedure Esophagogastroduodenoscopy, Gastric Biopsy 4 <+> Time Out 4 <*> Procedure Esophagogastroduodenoscopy, Gastric Biopsy 08/24/19 11:12:38 Longshore Equipment Operator: HOLMESTJ Modifier: HOLMESTJ <+> 1 Procedure 2 <*> Procedure Esophagogastroduodenoscopy 3 <*> Procedure Esophagogastroduodenoscopy 4 <*> Procedure Esophagogastroduodenoscopy 08/24/19 11:11:44 Longshore Equipment Operator: HOLMESTJ Modifier: HOLMESTJ 2 <+> Time In [...] Endo - Case Times Audit 08/24/19 11:13:59 Longshore Equipment Operator: HOLMESTJ Modifier: HOLMESTJ <+> 1 Out Room Time <+> 1 Stop Time <+> 1 Stop Time 08/24/19 11:11:59 Longshore Equipment Operator: HOLMESTJ Modifier: HOLMESTJ <+> 1 Start Time [facility] - Cultures and Spec Summary Entry 1 Cultrures and Specimens Specimen Ordered: Yes Last Modified By: ANGE Green RN 08/24/19 11:14:38 [facility] - Delays Entry 1 Delay Reason Other Duration 0 Minute(s) Comment NO DELAY Last Modified By: ANGE Green RN 08/24/19 11:09:48 [facility] - Delays Audit 08/24/19 11:09:48 Longshore Equipment Operator: JOHNATHANESTJ Modifier: HOLMESTJ <+> 1 Comment [facility] [...] Modified By: ANGE Green RN 08/24/19 11:09:51 [facility] Endo - Fire Risk Assessment Entry 1 Fire Info Surgical Site or 1- Yes Incision Above the Xyphoid Open O2 Source 1- Yes (Mask or Cannula) Available Ignition 1- Yes (ESU, Laser, Light Source) Fire Risk 3 Assessment Score Fire Score Fire Risk Yes Assessment Complete Fire Risk ANGE Green apartment rental clerk Verified By Fire Risk 08/24/19 11:10:00 Assessment Verified Date/Time Fire Risk High Risk Protocol Yes Implemented Standard Fire Yes Safety Precautions Followed Last Modified By: ANGE Green RN 08/24/19 11:10:04 [facility] Endo - General Case Campus Wellness Coordinator 1 Case Information OR Endo 01 [facility] Case Level 1 Room Verified Yes Wound Class II - Clean-Contaminated Specialty SN General Anesthesia Type MAC ASA Class 3 Diagnosis Preop Diagnosis GERD Postop Same As Preop No Postop Diagnosis normal EGD Last Modified By: ANGE Green RN 08/24/19 11:11:13 [facility] Endo - General Case Data Audit 08/24/19 11:14:21 Longshore Equipment Operator: GEOVANNA Modifier: HOLMESTJ <+> [address] [facility] Endo - Intraoperative Assessment Entry 1 Valid [...] Endo - Intraoperative Assessment Audit 08/24/19 12:55:06 Longshore Equipment Operator: JOHNATHANESTJ Modifier: HOLMESTJ <+> 1 Prosthetic/Assistive Devices [facility] Endo - Intraoperative Equipment Entry 1 Type [...] Endo - Patient Positioning Audit 08/24/19 11:12:40 Longshore Equipment Operator: GEOVANNA Modifier: HOLMESTJ 1 <*> Procedure Esophagogastroduodenoscopy [...] Endo - Sign Out Audit 08/24/19 11:14:13 Longshore Equipment Operator: GEOVANNA Modifier: HOLMESTJ <+> 1 RN Sign Out Signature Date/Time <+> 1 Urinary Catheter Documented in IView [facility] Endo - Surgical Procedures Entry 1 Entry [...] ANGE Green RN 08/24/19 11:12:34 08/24/19 11:12:34 [facility] Endo - Surgical Procedures Audit 08/24/19 11:14:04 Longshore Equipment Operator: GEOVANNA Modifier: HOLMMARCIA <+> 1 Stop <+> [address] [facility] Endo - Time Out Entry 1 Procedure [...] Modified By: ANGE Green RN 08/24/19 11:12:41 [facility] Endo - Time Out Audit 08/24/19 11:12:41 Longshore Equipment Operator: GEOVANNA Modifier: HOLMESTJ 1 <*> Procedure to be Performed Esophagogastroduodenoscopy 08/24/19 11:12:26 Longshore Equipment Operator: JOHNATHANESTGiacomo Modifier: HOLMESTJ 1 <*> Beta Renae [...] GEOVANNA Correct Documentation Electronically signed by Rochel[facility] Conversion Cartoonist Special Effects Cerner at 11/02/2022 10:11 AM CDT documented in this encounter Plan of Treatment Not on file documented as of this encounter Visit Diagnoses Not on filedocumented in this encounter
--- OUTSIDE RECORDS SUMMARY | 2025-02-06 20:04 | XMS_ITS | Encounter Summary ---
Author Organization [employer] ([place], [place], [place], [place]) Address [address] [place] [address] Care Team Providers Care Barrel Lathe Operator Outside Name Role Phone Unavailable Primary Care Provider Unavailabl e Encounter Details Date Type Department Care Team (Late st Contact Info) Description 08/03/2018 Transcribed Document [facility] [place] [address] [place] [address] ProviderLaury MD [address] [place] [address] Social History Tobacco Use Types Packs/Day [...] - Laury ProviderMD - 08/03/2018 7:32 PM [facility] ADDRESS [place], [place] [phone] Name:Crystal rAcher Visit Date:08/03/2018 13:52:00 Emergency Department Care Providers: Physician: MEGHA MAN Physician: Our doctors and staff appreciate your choice of [facility] for your emergency medical care. Read these instructions carefully. Please call us if you have any questions about your medical problem. [facility] Emergency Department [phone] [facility] Emergency Department [phone] [facility] Emergency Department [phone] Patient Education Materials Gianni Crystal Jones has [...] pick them up o [facility] # [phone] o [facility] # [phone] o [facility] # [phone] ?? If you had cultures done and [...] quit. o National Network of Tobacco Cessation CEabfunrn0-232-SJDK-NOW o [place] [employer] o [place] [employer] 4-566907-2085 o Sai/Manuel Mccray [phone] FINANCIAL INFORMATION ?? [facility] provides financial counseling to anyone who requests our services. ?? Emergency Physicians are independently contracted to provide your care. You will receive a bill for the care provided to you by the Physician and/or the Physician Wastewater Analyst Lab Analyst. This will be a separate bill [...] as recommended Patient Signature / or Patient Soa Integration Developer Provider Signature Date Date/Time 08/03/2018 14:32 [facility] [...]
--- OUTSIDE RECORDS SUMMARY | 2025-02-06 20:04 | XMS_ITS | Encounter Summary ---
Author Organization [employer] ([place], [place], [place], [place]) Address [address] [place] [address] Care Team Providers Care Propagator Name Role Phone Unavailable Primary Care Provider Unavailabl e Encounter Details Date Type Department Care Team (Late st Contact Info) Description 01/07/2019 Transcribed Document [facility] [place] [address] [place] [address] ProviderLaury MD [address] [place] [address] Social History Tobacco Use Types Packs/Day [...] : No GI 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 : No Capacity Planning Engineer Hx : No Heart Attack : [...]
--- OUTSIDE RECORDS SUMMARY | 2025-02-06 20:04 | XMS_ITS | Clinical Summary ---
Author Organization [facility] Address [facility], [address] [place] [address] Care Team Providers Care Electromedical Equipment Technician Name Role Phone Jaquan Conley MD Primary Care Provider [phone] Social History Tobacco Use Types Packs/Day Years Used Date Smoking Tobacco: Never Assessed Comments Unknown Sex and Gender Information Value Date Recorded Sex Assigned at Not on file Legal Sex Female 11:22 AM EDT Gender Identity Not on file Sexual Orientation Not on file Plan of Treatment Not on file Insurance [facility] Care Teams Electromedical Equipment Technician Relationship Specialty Start Date End Date Jaquan Conley MD [address] [place] [address] PCP - General Internal Medicine 01/09/21
--- OUTSIDE RECORDS SUMMARY | 2025-02-06 20:04 | XMS_ITS | Encounter Summary ---
Author Organization [employer] ([place], [place], [place], [place]) Address [address] [place] [address] Care Team Providers Care Child Day Care Teacher Name Role Phone Unavailable Primary Care Provider Unavailabl e Encounter Details Date Type Department Care Team (Late st Contact Info) Description 01/05/2020 Transcribed Document [facility] [place] [address] [place] [address] ProviderLaury MD [address] [place] [address] Social History Tobacco Use Types [...] your book, please call the Center at [phone]. documented in this encounter Plan of Treatment Not on file documented as of this encounter Visit Diagnoses Not on filedocumented in this encounter
--- OUTSIDE RECORDS SUMMARY | 2025-02-06 20:04 | XMS_ITS | Encounter Summary ---
Author Organization [employer] ([place], [place], [place], [place]) Address [address] [place] [address] Care Team Providers Care Managing Manager Name Role Phone Unavailable Primary Care Provider Unavailabl e Encounter Details Date Type Department Care Team (Late st Contact Info) Description 01/18/2020 Transcribed Document [facility] [place] [address] [place] [address] ProviderLaury MD [address] [place] [address] Social History Tobacco Use Types [...] Laury ProviderMD - 01/18/2020 8:28 PM CDT [place] Suicide Severity Rating Scale (C-SSRS) Entered On: 01/18/2020 21:29 EDT Performed On: 01/18/2020 21:29 EDT by JASON FUENTES RN [place] Suicide Severity Rating Scale (C-SSRS) CSSRS Past [...]
--- OUTSIDE RECORDS SUMMARY | 2025-02-06 20:04 | XMS_ITS | Referral Summary ---
Author Organization [employer] ([place], [place], [place], [place]) Address [address] [place] [address] Care Team Providers Care Pan Puller Name Role Phone Unavailable Primary Care Provider [...] Date Blaine rded Speak language other than Georgian at home Not on file 07/30/2023 Want [...] file Insurance Lb MONTALVO MARTIN URIEL LOWERY [id number] [facility] Advance Directives For more information, please contact: [phone] * Full Code (Latest Code Status on File) Date Activated Date Inactivated Comments 09/23/2022 6:27 AM 09/23/2022 11:31 AM
--- OUTSIDE RECORDS SUMMARY | 2025-02-06 20:04 | XMS_ITS | Encounter Summary ---
[facility] Organization [facility] Address [address] [place] [id number] Care Team Providers Care Corner Cutter Machine Operator Name Role Phone Maria A Soria HORTICULTURALIST Primary Care Provider [phone] Reason for Visit * Reason Comments Med Refill Encounter Details Date Type Department Care Team (Late st Contact Info) Description 02/03/2025 Refill [facility] [address] [place] [phone] Maria A Soria, HORTICULTURALIST [address] [place] [address] Social History Tobacco Use Types Packs/Day Years [...] Telephone Encounter - Betsey Roach MA - 02/04/2025 8:17 AM EDT Rx sent documented in this encounter Plan of Treatment Not on file documented as of this encounter Visit Diagnoses Not on filedocumented in this encounter Care Teams Corner Cutter Machine Operator Relationship Specialty Start Date End Date Maria A Soria, ANJU [address] [place], [place] [id number] PCP - General Family Medicine 02/15/23 documented as of this encounter
--- OUTSIDE RECORDS SUMMARY | 2025-02-06 20:04 | XMS_ITS | Clinical Summary ---
Author Organization [facility] Address [address] [place] [address] Care Team Providers Care Terra Cotta Roofer Name Role Phone Jaquan Conley MD Primary Care Provider [phone] Allergies Active Allergy Reactions Criticality Noted Date [...] current use of insulin ([facility]/HCC) To be used in insulin pump. MDD [...] [facility]-HIV Screening 1990 [facility]-/Child/Adol SDOH Screenings 1990 [id number] Vaccine (#1) 1994 Diabetes: Dental Exam 1999 [...] current use of insulin ([facility]) CYTO DATA CONVERSION Routine 10/29/2014 12:00 AM EDT from Last 3 Months or Most Recently Relevant to Health Maintenance Results * (ABNORMAL) POCT glycosylated hemoglobin (Hb A1C) (05/23/2024 11:03 AM EST) POCT Hemoglobin A1C 5.8 <5.7% Non-Diabe tic % [facility] Kit Lot Number [id number] [facility] Kit Expiration Date 03/17/2026 [facility] Blood Venous blood specimen / Unknown 05/23/2024 11:03 AM EST us Erica MENDEZ POINT OF CARE TEST EN TER/EDIT ORDERABLES Final Result [facility] [address] [place] [address] * Cytology (10/29/2014 12:00 AM EDT) 10/29/2014 10/31/2014 12: 33 PM EDT Narrative [facility] - 11/06/2014 11:15 AM EDT [facility] MR #: [id number] [facility] [address] [place], [place] [address] 1990 (Age: 24) FW Collect Date: 10/29/2014 00:00 Receipt Date: 10/31/2014 12:33 Page 1 DEPARTMENT OF PATHOLOGY AND LABORATORY MEDICINE CYTOPATHOLOGY REPORT Email: [email or web address] ATTENDING MD/Practitioner: John Celestin APRN Service: PAT Location: OUTS Reported: 11/06/2014 11:15 Collected: 10/29/2014 00:00 INTERPRETATION A. THIN PREP (CERVICAL/VAGINAL): NEGATIVE FOR INTRAEPITHELIAL LESION OR MALIGNANCY. SATISFACTORY FOR EVALUATION; ENDOCERVICAL/ TRANSFORMATION ZONE COMPONENT PRESENT. Slide scanned and imaged by [employer] ThinPrep Imaging System with manual review of [...] results is suggested (please call Microbiology at [phone] for results). CLINICAL INFORMATION: Menstrual History: Cyclic Date of Last Menstrual Period: 10/03/14 Other Clinical Conditions: If ASCUS and > 24 years of age, HPV/DNA testing requested. SPECIMEN DESCRIPTION: A: THIN PREP (CERVICAL/VAGINAL) THIN PREP PROCESS CELLULAR ENHANCEMENT ICD: F: A; RT IMAGE 12592 SNOMED CODES: A; [id number] In cases where a pathologist has signed out the report, the service has been rendered in part by a resident. The signing pathologist has performed and is responsible for the reported pathologic evaluation. us Historical Provider MD LAB PATHOLOGY ORDERABLES Final Result [facility] from Last 3 Months or Most Recently Relevant to Health Maintenance Insurance [facility] MEDICA[facility] Care Teams Terra Cotta Roofer Relationship Specialty Start Date End Date Jaquan Conley MD [address] [place] [address] PCP - General 11/28/20
--- OUTSIDE RECORDS SUMMARY | 2025-02-06 20:04 | XMS_ITS | Encounter Summary ---
Author Organization [employer] ([place], [place], [place]) Address [address] [place] [address] Care Team Providers Care City Maintenance Manager Name Role Phone Unavailable Primary Care Provider Unavailabl e Encounter Details Date Type Department Care Team (Late st Contact Info) Description 01/04/2020 Transcribed Document [facility] [place] Family Medicine [address] [place] [address] ProviderLaury MD [address] [place] [address] Social History Tobacco Use Types [...]
--- OUTSIDE RECORDS SUMMARY | 2025-02-06 20:04 | XMS_ITS | Encounter Summary ---
Author Organization [employer] ([place], [place]) Address [address] [place] [address] Care Team Providers Care Sales Team Member Name Role Phone Unavailable Primary Care Provider Unavailabl e Encounter Details Date Type Department Care Team (Late st Contact Info) Description 10/31/2018 Transcribed Document [facility] [place] [address] [place] [address] ProviderLaury MD [address] [place] [address] Social History Tobacco Use Types Packs/Day [...] Complaint Primary Care Provider : Rema Ferreira, Psychiatric Specialist Accompanied By : Family/Spouse/SO Arrival Mode : [...] : No GI 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 : No Automotive Sales Professional Hx : No Heart Attack : No [...] Preferred Communication Mode : Verbal Languages : Belarusian Child/Parent Domestic Concerns : None Threats of Suicide : No Jasen summer10/30/2018 20:29 EDT Height and Weight Height Source : Stated Height Entry Format : [place] Height, Inches : 65 Inch(Converted to: 5 ft 5 Inch, 165.10 cm) Clinical Height : 165.1 cm Weight Source : Stated Type of Weight Measurement Est : [place] Weight, est lb : 214 lb Estimated Clinical Dosing Weight : 97.27 kg [place] Body Weight : 57 kg Body Surface [...] ; Status: Processing ; Ordered As Mnemonic: Gustavus 5 mg-325 mg oral tablet ; Simple [...]
--- OUTSIDE RECORDS SUMMARY | 2025-02-06 20:04 | XMS_ITS | Encounter Summary ---
Author Organization [employer] ([place], [place], [place], [place]) Address [address] [place] [address] Care Team Providers Care Brine Tank Separator Operator Name Role Phone Unavailable Primary Care Provider Unavailabl e Encounter Details Date Type Department Care Team (Late st Contact Info) Description 12/24/2018 Transcribed Document [facility] [place] [address] [place] [address] ProviderLaury MD [address] [place] [address] Social History Tobacco Use Types Packs/Day [...] Laury ProviderMD - 12/24/2018 7:19 PM CDT [facility] ADDRESS [place], [place] [phone] Name:Crystal Archer Visit Date:12/24/2018 15:01:00 Emergency Department Care Providers: Physician: MEGHA MAN Physician: Our doctors and staff appreciate your choice of [facility] for your emergency medical care. Read these instructions carefully. Please call us if you have any questions about your medical problem. [facility] Emergency Department [phone] [facility] Emergency Department [phone] [facility] Emergency Department [phone] Patient Education Materials Gianni Crystal Karen has [...] Medicines may be prescribed or be available ycyb-pvs-wrafyzu. The medicines may be: ??? Taken by mouth (orally). ??? Applied as a cream. Follow these instructions at home: ??? Take or apply zeyl-zhv-khvftbw and prescription medicines only as told by [...] 03/21/2012 Document Revised: 02/27/2017 Document Reviewed: 01/05/2016 TakWak Interactive Patient Education ? 2019 nxtControl. FOLLOW UP CARE Most conditions that require [...] the x-ray department to pick them up [facility] # [phone] [facility] # [phone] o [facility] # [phone] ?? If you had cultures done and [...] quit. o National Network of Tobacco Cessation [id number]-QJRK-NOW o [place] Lung Association o [place]ian Heart Association [phone] o Sai/Manuel Mccray [phone] FINANCIAL INFORMATION ?? [facility] provides financial counseling to anyone who requests our services. ?? Emergency Physicians are independently contracted to provide your care. You will receive a bill for the care provided to you by the Physician and/or the Physician Photographic Reproduction Technician. This will be a separate bill [...] recommended Patient Signature / or Patient Pharmacy Informatics Manager Provider Signature Date Date/Time 12/24/2018 15:19 [facility] [...]
--- OUTSIDE RECORDS SUMMARY | 2025-02-06 20:04 | XMS_ITS | Encounter Summary ---
Author Organization [employer] ([place], [place], [place], [place]) Address [address] [place] [address] Care Team Providers Care Milk Drier Name Role Phone Unavailable Primary Care Provider Unavailabl e Encounter Details Date Type Department Care Team (Late st Contact Info) Description 01/05/2020 Transcribed Document [facility] Family Medicine [address] [place] [address] ProviderLaury MD [address] [place] [address] Social History Tobacco Use Types Packs/Day [...] On: 01/05/2020 8:27 EDT by CRISTOBAL HANSEN, RN-Supervisor Chlorine Liquefaction Initial Assessment I Previously Documented Living Environment [...] have PCP Listed? : Yes CRISTOBAL HANSEN RN-Supervisor Chlorine Liquefaction - 01/05/2020 8:27 EDT Initial Assessment II [...] : Discharge transportation, Outpatient services CRISTOBAL HANSEN RN-Supervisor Chlorine Liquefaction - 01/05/2020 8:27 EDT Narrative Note Narrative Note : Patient underwent laparoscopic gastrectomy sleeve. Lives at home with family, iADLs. Plan is to return home at [place], no services needed..................sds CRISTOBAL HANSEN RN-Supervisor Chlorine Liquefaction - 01/05/2020 8:27 EDT documented in this encounter Plan of Treatment Not on file documented as of this encounter Visit Diagnoses Not on filedocumented in this encounter
--- OUTSIDE RECORDS SUMMARY | 2025-02-06 20:04 | XMS_ITS | Encounter Summary ---
Author Organization [employer] ([place], [place], [place], [place]) Address [address] [place] [address] Care Team Providers Care Broach Operator Name Role Phone Unavailable Primary Care Provider Unavailabl e Encounter Details Date Type Department Care Team (Late st Contact Info) Description 12/28/2019 Transcribed Document [facility] [place] [address] [place] [address] ProviderLaury MD [address] [place] [address] Social History Tobacco Use Types Packs/Day [...] Policy Numbers : Insurance 1 Health Plan: [facility] Policy Number: [id number] Authorization Number: Insurance Primary Name : [facility] Policy Number: [id number] Authorization Status-Primary : Admit approved Reference Number-Primary : [id number] Authorization Number-Primary : [id number] Number of Days Authorized-Primary : 0 Day(s) [...]
--- OUTSIDE RECORDS SUMMARY | 2025-02-06 20:04 | XMS_ITS | Encounter Summary ---
Author Organization [employer] ([place], [place], [place], [place]) Address [address] [place] [address] Care Team Providers Care Rug Cutter Helper Name Role Phone Unavailable Primary Care Provider Unavailabl e Encounter Details Date Type Department Care Team (Late st Contact Info) Description 09/26/2018 Transcribed Document [facility] [place] Medicine [address] [place] [address] ProviderLaury MD [address] [place] [address] Social History Tobacco Use Types Packs/Day [...] 09/26/2018 10:56 PM CDT [facility] [place], [place] [phone] Name:Crystal Archer Visit Date:09/26/2018 16:44:00 Emergency Department Care Providers: Physician: INDIO PEREA Physician: Our doctors and staff appreciate your choice of [facility] for your emergency medical care. Read these instructions carefully. Please call us if you have any questions about your medical problem. [facility] Emergency Department [phone] [facility] Emergency Department [phone] [facility] Emergency Department [phone] Patient Education Materials Crystal Archer Karen has [...] 07/04/2006 Document Revised: 12/09/2016 Document Reviewed: 03/04/2014 Glider Interactive Patient Education ? 2017 Glider Inc. FOLLOW UP CARE Most conditions that [...] x-ray department to pick them up o [facility] # [phone] o [facility] # [phone] o [facility] # [phone] ?? If you had cultures done and [...] quit. o National Network of Tobacco Cessation ARvrfoofi2-912-DYHM-NOW o [employer] Lung Association o [employer] Heart Association [phone] o Sai/Manuel Mccray [phone] FINANCIAL INFORMATION ?? [facility] provides financial counseling to anyone who requests our services. ?? Emergency Physicians are independently contracted to provide your care. You will receive a bill for the care provided to you by the Physician and/or the Physician Roll Builder. This will be a separate bill from [...] recommended Patient Signature / or Patient Director Social Welfare Provider Signature Date documented in this encounter Plan of Treatment Not on file documented as of this encounter Visit Diagnoses Not on filedocumented in this encounter
--- OUTSIDE RECORDS SUMMARY | 2025-02-06 20:04 | XMS_ITS | Encounter Summary ---
Author Organization [employer] ([place], [place], [place], [place]) Address [address] [place] [address] Care Team Providers Care Pressurization Mechanic Name Role Phone Unavailable Primary Care Provider Unavailabl e Encounter Details Date Type Department Care Team (Late st Contact Info) Description 12/24/2018 Transcribed Document [facility] [place] [address] [place] [address] ProviderLaury MD [address] [place] [address] Social History Tobacco Use Types Packs/Day [...] Laury ProviderMD - 12/24/2018 7:19 PM CDT [facility] Emergency Department Depart Summary PERSON INFORMATION Name Crystal Archer Age 28 Years 1990 Sex Female Language PCP Marital Status Phone [id number] Visit Id Visit Reason Specialty Enc Type Emergency Med Service Referred by Track Group [facility] Discharge Tracking Id [id number] Checkout 12/24/2018 15:19:27 Checkin 12/24/2018 15:01:00 Acuity 4 - Non-urgent [facility] Dispo Type Arrival 12/24/2018 15:01:00 Reg Status LOS 000 00:18 Address: [address] [place], [place] [address] [address] P[employer] PHYSICIAN NOTES VITALS INFORMATION Vital Sign Triage Temp 98.6 Temp Route Oral/Mouth Pulse Rate 101 Respiratory Rate 20 Blood Pressure 179/ 89 LOCATION INFORMATION Arrival Nurse Unit Room Bed 12/24/2018 15:01:00 [facility] ED Waitroom ([facility]) 12/24/2018 15:04:15 [facility] ED 1 12/24/2018 15:19:27 [facility] ED Checkout ([facility]) MEDICAL INFORMATION Allergy Info: No Known [...]
--- OUTSIDE RECORDS SUMMARY | 2025-02-06 20:04 | XMS_ITS | Encounter Summary ---
Author Organization [employer] ([place], [place], [place], [place]) Address [address] [place] [address] Care Team Providers Care Endorsement Clerk Name Role Phone Unavailable Primary Care Provider Unavailabl e Encounter Details Date Type Department Care Team (Late st Contact Info) Description 09/07/2018 Transcribed Document [facility] [place] [address] [place] [address] ProviderLaury MD [address] [place] [address] Social History Tobacco Use Types Packs/Day [...] - Laury ProviderMD - 09/07/2018 9:31 PM POLITICAL SCIENTIST [facility] ADDRESS [place], [place] [phone] Name:Crystal Archer Visit Date:09/07/2018 15:20:00 Emergency Department Care Providers: Physician: MEGHA MAN Physician: Our doctors and staff appreciate your choice of [facility] for your emergency medical care. Read these instructions carefully. Please call us if you have any questions about your medical problem. [facility] Emergency Department [phone] [facility] Emergency Department [phone] [facility] Emergency Department [phone] Patient Education Materials Gianni Crystal Jones has [...] 12/15/2006 Document Revised: 03/06/2017 Document Reviewed: 12/11/2014 BlisMedia Interactive Patient Education ? 2017 BlisMedia Inc. FOLLOW UP CARE Most conditions that [...] x-ray department to pick them up o [facility] # [phone] o [facility] # [phone] o [facility] # [phone] ?? If you had cultures done and [...] quit. o National Network of Tobacco Cessation MYwmnimoz6-433-XMEH-NOW o Vietnamese Lung Association o Vietnamese Heart Association [phone] o Sai/Manuel Mccray [phone] FINANCIAL INFORMATION ?? [facility] provides financial counseling to anyone who requests our services. ?? Emergency Physicians are independently contracted to provide your care. You will receive a bill for the care provided to you by the Physician and/or the Physician Project Drilling Engineer. This will be a separate bill [...] as recommended Patient Signature / or Patient Library Acquisitions Technician Provider Signature Date Date/Time 09/07/2018 16:31 [facility] [...] oral tablet loratadine 10 mg oral capsule [place] 5 mg-325 mg oral tablet sodium bicarbonate [...]
--- OUTSIDE RECORDS SUMMARY | 2025-02-06 20:04 | XMS_ITS | Encounter Summary ---
Author Organization [employer] ([place], [place], [place], [place]) Address [address] [place] [address] Care Team Providers Care Manager User Experience Name Role Phone Unavailable Primary Care Provider Unavailabl e Encounter Details Date Type Department Care Team (Late st Contact Info) Description 11/19/2018 Transcribed Document [facility] [place] [address] [place] [address] ProviderLaury MD [address] [place] [address] Social History Tobacco Use Types Packs/Day [...] [facility] ADDRESS [place], [place] [phone] Name:Crystal Archer Visit Date:11/18/2018 20:06:00 Emergency Department Care Providers: Physician: Clara Elias Phys Asst Physician: Our doctors and staff appreciate your choice of [facility] for your emergency medical care. Read these instructions carefully. Please call us if you have any questions about your medical problem. [facility] Emergency Department [phone] [facility] Emergency Department [phone] [facility] Emergency Department [phone] Patient Education Materials Gianni Crystal Jones has [...] start to feel better. ??? Only take jgdx-llp-rovtcdf or prescription medicines for pain, discomfort, or [...] 01/29/2014 Elsevier Interactive Patient Education ? 2017 Simplist Inc. Obstetrics and Gynecology Urinary Tract Infection, Adult Introduction A urinary tract infection (UTI) is an infection of any part of the urinary tract. The urinary tract includes the: ??? Kidneys. ??? Ureters. ??? Bladder. ??? Urethra. These organs make, store, and get rid of pee (urine) in the body. Follow these instructions at home: ??? Take bynu-oco-nasrbxm and prescription medicines only as told by [...] them up o [facility] # [phone] o [facility] # [phone] o [facility] # [phone] ?? If you had cultures done and [...] quit. o National Network of Tobacco Cessation FLovvjice0-625-NIRZ-NOW o [place] Lung Association o [place] Heart Association [phone] o Sai/Manuel Mccray [phone] FINANCIAL INFORMATION ?? [facility] provides financial counseling to anyone who requests our services. ?? Emergency Physicians are independently contracted to provide your care. You will receive a bill for the care provided to you by the Physician and/or the Physician Settlement Clerk. This will be a separate bill from [...] Patient Education Materials: ENT Otitis Media, Adult, Bxrd-sy-Pyft Obstetrics and Gynecology Urinary Tract Infection, Adult, Qvyr-ke-Fkzb Follow-Up Instructions: Follow Up With: Where: When: [...] as recommended Patient Signature / or Patient Dermatopathologist Provider Signature Date documented in this encounter Plan of Treatment Not on file documented as of this encounter Visit Diagnoses Not on filedocumented in this encounter
--- OUTSIDE RECORDS SUMMARY | 2025-02-06 20:04 | XMS_ITS | Clinical Summary ---
Author Organization [employer] ([place], [place], [place], [place]) Address [address] [place] [address] Care Team Providers Care Pet Trainer Name Role Phone Unavailable Primary Care [...] rded Speak language other than Citizen [place] at home Not on file 07/30/2023 Want [...] patient's age to complete this topic Insurance [facility] Advance Directives For more information, please contact: [phone] * Full Code (Latest Code Status on File) Date Activated Date Inactivated Comments 09/23/2022 6:27 AM 09/23/2022 11:31 AM
--- OUTSIDE RECORDS SUMMARY | 2025-02-06 20:04 | XMS_ITS | Encounter Summary ---
Author Organization [employer] ([place], [place], [place], [place]) Address [address] [place] [address] Care Team Providers Care Carburetor Rebuilder Name Role Phone Unavailable Primary Care Provider Unavailabl e Encounter Details Date Type Department Care Team (Late st Contact Info) Description 01/04/2020 Transcribed Document [facility] [place] [address] ProviderLaury MD [address] [place] [address] Social History Tobacco Use Types Packs/Day [...] Laparoscopic sleeve gastrectomy SURGEON: Xavi Mejia M.D. CUSTOMER ASSISTANCE ASSOCIATE: Daniel steinberg MD ANESTHESIA: General. SPECIMEN: Stomach. INDICATION FOR PROCEDURE: is a 29-year-old patient with usp history of morbid obesity and CKD, has [...] was done, we proceeded to place the 54-British bougie down the esophagus into the stomach under direct visualization. When it was in the antrum, we proceeded to staple the stomach in a parallel manner to the greater curvature, creating a sleeve gastrectomy using the Round Top stapler. We used green loads, all reinforced [...]
--- OUTSIDE RECORDS SUMMARY | 2025-02-06 20:04 | XMS_ITS | Encounter Summary ---
Author Organization [employer] ([place], [place], [place], [place]) Address [address] [place] [address] Care Team Providers Care Smoke Eater Name Role Phone Unavailable Primary Care Provider Unavailabl e Encounter Details Date Type Department Care Team (Late st Contact Info) Description 01/04/2020 Transcribed Document [facility] [place] [address] [place] [address] ProviderLaury MD [address] [place] [address] Social History Tobacco Use Types Packs/Day [...]
--- OUTSIDE RECORDS SUMMARY | 2025-02-06 20:04 | XMS_ITS | Encounter Summary ---
Author Organization [employer] ([place], [place], [place], [place]) Address [address] [place] [address] Care Team Providers Care Paper Core Machine Operator Name Role Phone Unavailable Primary Care Provider Unavailabl e Encounter Details Date Type Department Care Team (Late st Contact Info) Description 11/19/2018 Transcribed Document [facility] [place] [address] [place] [address] ProviderLaury MD [address] [place] [address] Social History Tobacco Use Types Packs/Day [...] Laury ProviderMD - 11/19/2018 1:52 AM CDT [facility] ADDRESS [place], [place] [phone] Name:Crystal Archer Visit Date:11/18/2018 20:06:00 Emergency Department Care Providers: Physician: Clara Elias Phys Asst Physician: Our doctors and staff appreciate your choice of [facility] for your emergency medical care. Read these instructions carefully. Please call us if you have any questions about your medical problem. [facility] Emergency Department [phone] [facility] Emergency Department [phone] [facility] Emergency Department [phone] Patient Education Materials Gianni Crystal Jones has [...] start to feel better. ??? Only take gcus-jks-mhhrioo or prescription medicines for pain, discomfort, or [...] 01/29/2014 Elsevier Interactive Patient Education ? 2017 Innominate Security Technologies Inc. Obstetrics and Gynecology Urinary Tract Infection, Adult Introduction A urinary tract infection (UTI) is an infection of any part of the urinary tract. The urinary tract includes the: ??? Kidneys. ??? Ureters. ??? Bladder. ??? Urethra. These organs make, store, and get rid of pee (urine) in the body. Follow these instructions at home: ??? Take hazw-buu-lkyftjy and prescription medicines only as told by [...] x-ray department to pick them up o [facility] # [phone] o [facility] # [phone] o [facility] # [phone] ?? If you had cultures done and [...] quit. o National Network of Tobacco Cessation QCzadiyss6-780-NGBE-NOW o [place] Lung Association o [place] Heart Association [phone] o Sai/Manuel Mccray [phone] FINANCIAL INFORMATION ?? [facility] provides financial counseling to anyone who requests our services. ?? Emergency Physicians are independently contracted to provide your care. You will receive a bill for the care provided to you by the Physician and/or the Physician Vice President Business Development. This will be a separate bill from [...] Patient Education Materials: ENT Otitis Media, Adult, Aqte-vi-Nbng Obstetrics and Gynecology Urinary Tract Infection, Adult, Pzfj-bb-Nwoh Follow-Up Instructions: Follow Up With: Where: When: [...] recommended Patient Signature / or Patient Manager Field Sales Provider Signature Date Date/Time 11/18/2018 21:52 [facility] [...]
--- OUTSIDE RECORDS SUMMARY | 2025-02-06 20:04 | XMS_ITS | Encounter Summary ---
Author Organization [employer] ([place], [place], [place], [place]) Address [address] [place] [address] Care Team Providers Care Road Inspector Name Role Phone Unavailable Primary Care Provider Unavailabl e Encounter Details Date Type Department Care Team (Late st Contact Info) Description 12/24/2018 Transcribed Document [facility] Family Medicine [address] [place] [address] ProviderLaury MD [address] [place] [address] Social History Tobacco Use Types Packs/Day [...] Laury ProviderMD - 12/24/2018 7:19 PM CDT [facility] ADDRESS [place], [place] [phone] Name:Crystal Archer Visit Date:12/24/2018 15:01:00 Emergency Department Care Providers: Physician: MEGHA MAN Physician: Our doctors and staff appreciate your choice of [facility] for your emergency medical care. Read these instructions carefully. Please call us if you have any questions about your medical problem. [facility] Emergency Department [phone] [facility] Emergency Department [phone] [facility] Emergency Department [phone] Patient Education Materials Gianni Crystal Karen has [...] Medicines may be prescribed or be available umxa-xcl-vdekvqo. The medicines may be: ??? Taken by mouth (orally). ??? Applied as a cream. Follow these instructions at home: ??? Take or apply kkff-cof-pqxxebb and prescription medicines only as told by [...] 03/21/2012 Document Revised: 02/27/2017 Document Reviewed: 01/05/2016 Punchey Interactive Patient Education ? 2019 InterStelNet. FOLLOW UP CARE Most conditions that require [...] the x-ray department to pick them up [facility] # [phone] [facility] # [phone] o [facility] # [phone] ?? If you had cultures done and [...] quit. o National Network of Tobacco Cessation CUjtysijf4-479-RBRP-NOW o [place] Lung Association o [employer] Heart Association [phone] o Sai/Manuel Mccray [phone] FINANCIAL INFORMATION ?? [facility] provides financial counseling to anyone who requests our services. ?? Emergency Physicians are independently contracted to provide your care. You will receive a bill for the care provided to you by the Physician and/or the Physician Growth Media Mixer Mushroom. This will be a separate bill from [...] recommended Patient Signature / or Patient Market News Reporter Provider Signature Date Electronically signed by [facility], [facility] Conversion Manufacturing Manager Cerner at 10/19/2022 11:23 AM CDT documented in this encounter Plan of Treatment Not on file documented as of this encounter Visit Diagnoses Not on filedocumented in this encounter
--- OUTSIDE RECORDS SUMMARY | 2025-02-06 20:04 | XMS_ITS | Encounter Summary ---
Author Organization [employer] ([place], [place], [place], [place]) Address [address] [place] [address] Care Team Providers Care Human Resources Trainer Name Role Phone Unavailable Primary Care Provider Unavailabl e Encounter Details Date Type Department Care Team (Late st Contact Info) Description 01/05/2020 Transcribed Document [facility] [place] Family Medicine [address] [place] [address] ProviderLaury MD [address] [place] [address] Social History Tobacco Use Types [...] 01/05/2020 7:38 EDT Electronically signed by Interface, [facility] Conversion Sheetmetal Trades Worker Cerner at 11/02/2022 10:09 AM CDT documented in this encounter Plan of Treatment Not on file documented as of this encounter Visit Diagnoses Not on filedocumented in this encounter
--- OUTSIDE RECORDS SUMMARY | 2025-02-06 20:04 | XMS_ITS | Encounter Summary ---
Author Organization [employer] ([place], [place], [place], [place]) Address [address] [place] [address] Care Team Providers Care Roof Service Technician Name Role Phone Unavailable Primary Care Provider Unavailabl e Encounter Details Date Type Department Care Team (Late st Contact Info) Description 10/31/2018 Transcribed Document [facility] [place] Family Medicine [address] [place] [address] ProviderLaury MD [address] [place] [address] Social History Tobacco Use Types Packs/Day [...] Laury ProviderMD - 10/31/2018 1:17 AM CDT [facility] [place], [place] [phone] Name:Crystal Archer Visit Date:10/30/2018 20:23:00 Emergency Department Care Providers: Physician: MEGHA MAN Physician: Our doctors and staff appreciate your choice of [facility] for your emergency medical care. Read these instructions carefully. Please call us if you have any questions about your medical problem. [facility] Emergency Department [phone] [facility] Emergency Department [phone] [facility] Emergency Department [phone] Patient Education Materials Gianni Crystal Jones has [...] 10/19/2011 Document Revised: 11/11/2016 Document Reviewed: 06/30/2015 Else[employer] Hour Pal Interactive Patient Education ? 2017 [employer] FOLLOW UP CARE Most conditions that [...] to pick them up o [facility] # [phone] o [facility] # [phone] o [facility] # [phone] ?? If you had cultures done and [...] quit. o National Network of Tobacco Cessation QNhekkltz8-626-BDLL-NOW o [employer] Lung Association o [employer] Heart Association [phone] o Sai/Manuel Mccray [phone] FINANCIAL INFORMATION ?? [facility] provides financial counseling to anyone who requests our services. ?? Emergency Physicians are independently contracted to provide your care. You will receive a bill for the care provided to you by the Physician and/or the Physician Grievance Coordinator. This will be a separate bill [...] as recommended Patient Signature / or Patient Inspector Water Pollution Control Provider Signature Date documented in this encounter Plan of Treatment Not on file documented as of this encounter Visit Diagnoses Not on filedocumented in this encounter
--- OUTSIDE RECORDS SUMMARY | 2025-02-06 20:04 | XMS_ITS | Encounter Summary ---
Author Organization [employer] ([place], [place], [place], [place]) Address [address] [place] [address] Care Team Providers Care Front Load Trash Truck Driver Name Role Phone Unavailable Primary Care Provider Unavailabl e Encounter Details Date Type Department Care Team (Late st Contact Info) Description 08/03/2018 Transcribed Document [facility] [place] [address] [place] [address] ProviderLaury MD [address] [place] [address] Social History Tobacco Use Types Packs/Day [...] - Laury ProviderMD - 08/03/2018 6:57 PM DISPLAYER MERCHANDISE BBK Triage ED Entered On: 08/03/2018 14:06 [...] pain, dysuria since 0430. D/CD from [facility] 07/22 AMA for UTI. Health [...] : No GI 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 : No Sheep And Wheat Farmer Hx : No Heart Attack : No [...] Preferred Communication Mode : Verbal Languages : German Child/Parent Domestic Concerns : None Threats of Suicide : No ROSA FOSTER 08/03/2018 13:57 EST Height and Weight Height Source : Stated Height Entry Format : Barron Height, Inches : 65 Inch(Converted to: 5 ft 5 Inch, 165.10 cm) Clinical Height : 165.1 cm Weight Source : Stated Type of Weight Measurement Est : Barron Weight, est lb : 215 lb Estimated Clinical Dosing Weight : 97.73 kg [place] Body Weight : 57 kg Body Surface [...] ROSA FOSTER D - 08/03/2018 13:57 EST Electronically signed by Christopher Byrd Conversion Community Service Officer Coordinator Cerner at 10/19/2022 11:22 AM CDT documented in this encounter Plan of Treatment Not on file documented as of this encounter Visit Diagnoses Not on filedocumented in this encounter
--- OUTSIDE RECORDS SUMMARY | 2025-02-06 20:04 | XMS_ITS | Encounter Summary ---
Author Organization [facility] Address [address] [place] [address] Care Team Providers Care Laborer Chicken Farm Name Role Phone Maria A Soria APRN Primary Care Provider [phone] Encounter Details Date Type Department Care Team (Latest Contact Info) Description 02/06/2025 Travel Social History Tobacco Use Types Packs/Day [...] on filedocumented in this encounter Care Teams Laborer Chicken Farm Relationship Specialty Start Date End Date Maria A Soria APRN [address] [place] [address] PCP - General Family Medicine 02/15/23 documented as of this encounter
--- OUTSIDE RECORDS SUMMARY | 2025-02-06 20:04 | XMS_ITS | Encounter Summary ---
Author Organization [employer] ([place], [place], [place], [place]) Address [address] [place] [address] Care Team Providers Care Business Services Officer Name Role Phone Unavailable Primary Care Provider Unavailabl e Encounter Details Date Type Department Care Team (Late st Contact Info) Description 09/26/2018 Transcribed Document [facility] [place] [address] [place] [address] ProviderLaury MD [address] [place] [address] Social History Tobacco Use Types Packs/Day [...] Sex Female Language PCP Marital Status Phone [phone] Visit Id Visit Reason Specialty Enc Type Emergency Med Service [id number] Checkout 09/26/2018 18:56:15 Checkin 09/26/2018 16:44:00 Acuity 3 - Urgent [facility] Dispo Type Arrival 09/26/2018 16:44:00 Reg Status LOS 000 02:12 Address: [address] [place] [address] [place] [address] POWERFORMS PHYSICIAN NOTES VITALS INFORMATION Vital Sign Triage Temp 98.7 Temp Route Oral/Mouth Pulse Rate 102 Respiratory Rate 20 Blood Pressure 140/ 72 LOCATION INFORMATION Arrival Nurse Unit Room Bed 09/26/2018 16:44:00 [facility] ED Waitroom ([facility]) 09/26/2018 16:50:17 [facility] ED 3 09/26/2018 18:56:15 [facility] ED Checkout ([facility]) MEDICAL INFORMATION Allergy Info: No Known Allergies PATIENT EDUCATION INFORMATION Instructions: Hematuria, Adult Follow up: With: Address: When: Follow up with primary care provider Within 5 to 7 days DIAGNOSIS documented in this encounter Plan of Treatment Not on file documented as of this encounter Visit Diagnoses Not on filedocumented in this encounter
--- OUTSIDE RECORDS SUMMARY | 2025-02-06 20:04 | XMS_ITS | Encounter Summary ---
Author Organization [employer] ([place], [place], [place], [place]) Address [address] [place] [address] Care Team Providers Care Conservation Enforcement Officer Name Role Phone Unavailable Primary Care Provider Unavailabl e Encounter Details Date Type Department Care Team (Late st Contact Info) Description 10/31/2018 Transcribed Document [facility] [place] [address] [place] [address] ProviderLaury MD [address] [place] [id number] Social History Tobacco Use Types Packs/Day Years [...] Laury ProviderMD - 10/31/2018 1:17 AM CDT [facility] Emergency Department Depart Summary PERSON INFORMATION Name Crystal Archer Age 28 Years 1990 Sex Female Language PCP Marital Status Phone [phone] Visit Id Visit Reason Specialty Enc Type Emergency Med Service Referred by Track Group [facility] Discharge Tracking Id [id number] Checkout 10/30/2018 21:17:02 Checkin 10/30/2018 20:23:00 Acuity 4 - Non-urgent [facility] Dispo Type Arrival 10/30/2018 20:23:00 Reg Status LOS 000 00:54 Address: [address] [place] [address] [place] [address] POWERFORMS PHYSICIAN NOTES VITALS INFORMATION Vital Sign Triage Temp 99 Temp Route Oral/Mouth Pulse Rate 92 Respiratory Rate 22 Blood Pressure 169/ 99 LOCATION INFORMATION Arrival Nurse Unit Room Bed 10/30/2018 20:23:00 [facility] ED Waitroom ([facility]) 10/30/2018 20:35:06 [facility] ED 9 10/30/2018 21:17:02 [facility] ED Checkout ([facility]) MEDICAL INFORMATION Allergy Info: No [...]
--- OUTSIDE RECORDS SUMMARY | 2025-02-06 20:04 | XMS_ITS | Encounter Summary ---
Author Organization [employer] ([place], [place], [place], [place]) Address [address] [place] [address] Care Team Providers Care Striper Spray Gun Name Role Phone Unavailable Primary Care Provider Unavailabl e Encounter Details Date Type Department Care Team (Late st Contact Info) Description 08/03/2018 Transcribed Document [facility] [place] Family Medicine [address] [place] [address] ProviderLaury MD [address] [place] [address] Social History Tobacco Use Types Packs/Day [...] - Laury ProviderMD - 08/03/2018 7:32 PM TECHNICAL COMMUNICATOR [facility] Emergency Department Depart Summary PERSON INFORMATION Name Crystal Archer Age 27 Years 1990 Sex Female Language PCP Marital Status Phone [id number] Visit Id Visit Reason Specialty Enc Type Emergency Med Service Referred by Track Group [facility] Discharge Tracking Id [id number] Checkout 08/03/2018 14:32:57 Checkin 08/03/2018 13:52:00 Acuity 3 - Urgent [facility] Dispo Type Arrival 08/03/2018 13:52:00 Reg Status LOS 000 00:40 Address: [address] [place] [address] [place] [address] POWERFORMS PHYSICIAN NOTES VITALS INFORMATION Vital Sign Triage Temp 98.1 Temp Route Oral/Mouth Pulse Rate 90 Respiratory Rate 18 Blood Pressure 152/ 87 LOCATION INFORMATION Arrival Nurse Unit Room Bed 08/03/2018 13:52:00 [facility] ED Waitroom ([facility]) 08/03/2018 13:55:29 [facility] ED 3 08/03/2018 14:32:57 [facility] ED Checkout ([facility]) MEDICAL INFORMATION Allergy Info: No Known Allergies PATIENT EDUCATION INFORMATION Instructions: Follow up: DIAGNOSIS Electronically signed by Zuleyka Byrd Conversion Agricultural Education Instructor Cerner at 10/19/2022 11:22 AM CDT documented in this encounter Plan of Treatment Not on file documented as of this encounter Visit Diagnoses Not on filedocumented in this encounter
--- OUTSIDE RECORDS SUMMARY | 2025-02-06 20:04 | XMS_ITS | Encounter Summary ---
Author Organization [facility] Address [address] [place] [address] Care Team Providers Care Die Presser Name Role Phone Jaquan Conley MD Primary Care Provider [phone] Encounter Details Date Type Department Care Team (Late st Contact Info) Description 11/10/2018 [facility] Encounter Historical OTTR [address] [place] [address] Yris Schwarz, RN [facility]-TRANSPLANT ADMINISTRATION Social History [...] . She stated [facility] because [facility] told her she can continue [...] AM EDT SW received message from psych dental scheduler that the pt contacted her to cancel psych appt, as she has decided to pursue listing at [facility], instead of . Note to Coord. and Transitional Living Specialist for awareness. * Progress Notes - Indira Márquez - 11/09/2018 4:12 PM EDT Mailed 11/24/18 [facility] psych eval appt schedule w/ map to pt. * Progress Notes - Daisy Gaming - 11/08/2018 8:09 AM EDT Per [facility] Transitional Living Specialist, pt has an appt with [facility] [...] to follow. * Progress Notes - Daisy aGming - 10/20/2018 9:03 AM EDT has emailed [...] 9 and 12 due to child support officer issues. Forwarding communication to . * Progress [...] However, pt is also considering going to [facility] since she was told they are less [...] @ 0830. Updated APM, SCM, OTTR, and [place]. Will call pt and mail updated ppw. [...] from pt asking for call back at [phone] to talk about a living donor. Called and spoke w/ pt. States she has several potential living donors and they have questions about the process, testing, and requirements. Informed pt that her potential living donors can call [phone] to discuss this and receive more info, [...] to pt and cc'd referring . USPS [phone]. documented in this [...] on filedocumented in this encounter Care Teams Die Presser Relationship Specialty Start Date End Date Jaquan Conley MD [address] [place], [place] [id number] PCP - General 11/28/20 documented as of this encounter
--- OUTSIDE RECORDS SUMMARY | 2025-02-06 20:04 | XMS_ITS | Encounter Summary ---
Author Organization [employer] ([place], [place], [place]) Address [address] [place] [address] Care Team Providers Care Russian Language Instructor Name Role Phone Unavailable Primary Care Provider Unavailabl e Encounter Details Date Type Department Care Team (Late st Contact Info) Description 11/19/2018 Transcribed Document [facility] [place] [address] [place] [address] ProviderLaury MD [address] [place] [address] Social History Tobacco Use Types Packs/Day [...] Laury ProviderMD - 11/19/2018 1:52 AM CDT [facility] Emergency Department Depart Summary PERSON INFORMATION Name Crystal Archer Age 28 Years 1990 Sex Female Language PCP Marital Status Phone [id number] Visit Id Visit Reason Specialty Enc Type Emergency Med Service [facility] [id number] Checkout 11/18/2018 21:52:54 Checkin 11/18/2018 20:06:00 Acuity 4 - Non-urgent [facility] Dispo Type Arrival 11/18/2018 20:06:00 Reg Status LOS 000 01:46 Address: [address] [place], [place] [address] [place] [address] POWERFORMS PHYSICIAN NOTES VITALS INFORMATION Vital Sign Triage Temp 99.0 Temp Route Oral/Mouth Pulse Rate 107 Respiratory Rate 18 Blood Pressure 147/ 87 LOCATION INFORMATION Arrival Nurse Unit Room Bed 11/18/2018 20:06:00 [facility] ED Waitroom ([facility]) 11/18/2018 20:10:40 [facility] ED 8 11/18/2018 21:33:06 [facility] ED STA-3 11/18/2018 21:52:54 [facility] ED Checkout ([facility]) MEDICAL INFORMATION Allergy Info: No Known Allergies PATIENT EDUCATION INFORMATION Instructions: Urinary Tract Infection, Adult, Fyit-oo-Bqyv; Otitis Media, Adult, Rmkj-sd-Smjz Follow up: With: Address: When: Follow up with primary care provider Within 1-2 days With: Address: When: Return to Emergency Department Within As needed DIAGNOSIS documented in this encounter Plan of Treatment Not on file documented as of this encounter Visit Diagnoses Not on filedocumented in this encounter
--- OUTSIDE RECORDS SUMMARY | 2025-02-06 20:04 | XMS_ITS | Encounter Summary ---
Author Organization [facility] Address [address] [place] [address] Care Team Providers Care Preschool Assistant Principal Name Role Phone Jaquan Conley MD Primary Care Provider [phone] Reason for Visit * Reason Comments Med Refill Encounter Details Date Type Department Care Team (Late st Contact Info) Description 09/25/2024 Refill [facility] - Transplantation Surgery [address] [address] Cb Forrester MD [address] [facility], [address] [place] [address] Social History Tobacco Use Types Packs/Day Years Used Date Smoking Tobacco: Never Assessed Comments Unknown Sex and Gender Information Value Date Recorded Sex Assigned at Not on file Legal Sex Female 10:36 PM EDT Gender Identity Not on file Sexual Orientation Not on file documented as of this encounter Plan of Treatment Not on file documented as of this encounter Visit Diagnoses Not on filedocumented in this encounter Care Teams Preschool Assistant Principal Relationship Specialty Start Date End Date Jqauan Conley MD [address] [place] [address] [place] [address] PCP - General Internal Medicine 09/18/20 documented as of this encounter
--- OUTSIDE RECORDS SUMMARY | 2025-02-06 20:04 | XMS_ITS | Encounter Summary ---
Author Organization [employer] ([place], [place], [place], [place]) Address [address] [place] [address] Care Team Providers Care Director Of Ancillary Services Name Role Phone Unavailable Primary Care Provider Unavailabl e Encounter Details Date Type Department Care Team (Late st Contact Info) Description 01/04/2020 Transcribed Document [facility] [place] Family Medicine [address] [place] [address] ProviderLaury MD [address] [place] [address] Social History Tobacco Use Types [...]
--- OUTSIDE RECORDS SUMMARY | 2025-02-06 20:04 | XMS_ITS | Encounter Summary ---
Author Organization [employer] ([place], [place], [place], [place]) Address [address] [place] [address] Care Team Providers Care Ice Cream Scooper Name Role Phone Unavailable Primary Care Provider Unavailabl e Encounter Details Date Type Department Care Team (Late st Contact Info) Description 09/26/2018 Transcribed Document [facility] [place] Family Medicine [address] [place] [address] ProviderLaury MD [address] [place] [address] Social History Tobacco Use Types Packs/Day [...] Laury ProviderMD - 09/26/2018 10:56 PM CDT [facility] ADDRESS [place], [place] [phone] Name:Crystal Archer Visit Date:09/26/2018 16:44:00 Emergency Department Care Providers: Physician: INDIO PEREA Physician: Our doctors and staff appreciate your choice of [facility] for your emergency medical care. Read these instructions carefully. Please call us if you have any questions about your medical problem. [facility] Emergency Department [phone] [facility] Emergency Department [phone] [facility] Emergency Department [phone] Patient Education Materials Crystal Archer Karen has [...] 07/04/2006 Document Revised: 12/09/2016 Document Reviewed: 03/04/2014 [employer] Interactive Patient Education ? 2017 [employer] FOLLOW UP CARE Most conditions that [...] x-ray department to pick them up o [facility] # [phone] o [facility] # [phone] o [facility] # [phone] ?? If you had cultures done and [...] quit. o National Network of Tobacco Cessation CJceubnmd4-415-GENK-NOW o [employer] [place] Lung Association o [employer] [place] Heart Association [phone] o Sai/Manuel Mccray [phone] FINANCIAL INFORMATION ?? [facility] provides financial counseling to anyone who requests our services. ?? Emergency Physicians are independently contracted to provide your care. You will receive a bill for the care provided to you by the Physician and/or the Physician Spring Manufacturing Set Up Technician. This will be a separate bill [...] as recommended Patient Signature / or Patient Patent Litigation Associate Provider Signature Date Date/Time 09/26/2018 18:56 [facility] [...] oral tablet loratadine 10 mg oral capsule [place] 5 mg-325 mg oral tablet sodium bicarbonate [...]
--- OUTSIDE RECORDS SUMMARY | 2025-02-06 20:04 | XMS_ITS | Encounter Summary ---
Author Organization [employer] ([place], [place], [place], [place]) Address [address] [place] [address] Care Team Providers Care Collection Systems Modeler Name Role Phone Unavailable Primary Care Provider Unavailabl e Encounter Details Date Type Department Care Team (Late st Contact Info) Description 09/28/2019 Transcribed Document [facility] [place] Family Medicine [address] [place] [address] ProviderLaury MD [address] [place] [address] Social History Tobacco Use Types Packs/Day [...] Policy Numbers : Insurance 1 Health Plan: [facility] Policy Number: [id number] Authorization Number: Insurance Primary Name : [facility] Policy Number: [id number] Authorization Status-Primary : Admit approved Reference Number-Primary : [id number] Authorization Number-Primary : [id number] Number of Days Authorized-Primary : 0 Day(s) Authorized Service Begin Date-Primary : 10/11/2019 EDT Authorized Service End Date-Primary : 10/11/2019 EDT Authorization Comments-Primary : [employer] approved per website for 1 day inpt Historical Authorization Comments-Primary : No Authorization Comments Found MNAOJ HWANG RN-Utilization Review - 09/28/2019 12:44 EDT Electronically signed by Zulekya Byrd Conversion Upset Welding Machine Operator Cerner at 11/02/2022 10:12 AM CDT documented in this encounter Plan of Treatment Not on file documented as of this encounter Visit Diagnoses Not on filedocumented in this encounter
--- OUTSIDE RECORDS SUMMARY | 2025-02-06 20:04 | XMS_ITS | Encounter Summary ---
Author Organization [employer] ([place], [place], [place], [place]) Address [address] [place] [address] Care Team Providers Care Hospital Cleaning Specialist Name Role Phone Unavailable Primary Care Provider Unavailabl e Encounter Details Date Type Department Care Team (Late st Contact Info) Description 08/24/2019 Transcribed Document [facility] [place] Family [place] [address] [place] [address] ProviderLaury MD [address] [place] [address] Social History Tobacco Use Types Packs/Day [...] - Laury ProviderMD - 08/24/2019 2:30 PM CENTRIFUGAL CASTING MACHINE OPERATOR [facility] PreOp Summary Primary Physician: LARRY MARTINES MD-SUR Finalized Date/Time: 08/24/19 10:30:24 Pt. Name: FREDDIE RUGGIEROGARCIA /Sex: 1990 Female Med Rec #: [id number] Physician: LARRY MARTINES MD-SUR Financial #: [id number] Pt. Type: O Room/Bed: [facility] [place] [place] Admit/Disch: 08/24/19 09:42:00 - Institution: [facility] PreOp Case Times Entry 1 In Preop 08/24/19 10:06:00 Ready for Holding n/a Room Patient Ready for 08/24/19 10:30:00 Surgery Patient Out of Preop 08/24/19 10:30:00 Patient Out of n/a Holding Room [facility] PreOp Case Times Audit 08/24/19 10:30:23 Injection Molding Process Technician: GEOVANNA Modifier: [id number] <+> 1 Patient Out of Preop <+> 1 Patient Ready for Surgery Finalized By: ANGE Green RN Document Signatures Signed By: ANGE Green RN 08/24/19 10:30 Electronically signed by [facility] Conversion Type Photography Supervisor Cerner at 11/02/2022 10:00 AM CDT documented in this encounter Plan of Treatment Not on file documented as of this encounter Visit Diagnoses Not on filedocumented in this encounter
--- OUTSIDE RECORDS SUMMARY | 2025-02-06 20:04 | XMS_ITS | Encounter Summary ---
Author Organization [employer] ([place], [place], [place], [place]) Address [address] [place] [address] Care Team Providers Care Cuff Setter Name Role Phone Unavailable Primary Care Provider Unavailabl e Encounter Details Date Type Department Care Team (Late st Contact Info) Description 01/18/2020 Transcribed Document [facility] [place] [address] [place] [address] ProviderLaury MD [address] [place] [address] Social History Tobacco Use Types [...] Communication Barrier : None Primary Language : Greek Any Spiritual/Cultural Needs or Requests : No [...]
--- OUTSIDE RECORDS SUMMARY | 2025-02-06 20:04 | XMS_ITS | Encounter Summary ---
Author Organization [facility] Address [address] [place] [id number] Care Team Providers Care Manufacturing Manager Name Role Phone Maria A Soria INVESTIGATOR VICE Primary Care Provider [phone] Reason for Visit * Reason Comments Med Refill Encounter Details Date Type Department Care Team (Late st Contact Info) Description 02/04/2025 Refill [facility] PRIMARY CARE [address] [place] [phone] Maria A Soria, INVESTIGATOR VICE [address] [place] [address] Social History Tobacco Use Types [...] Encounter - Betsey Roach MA - 02/04/2025 10:00 AM EDT Rx sent documented in this encounter Plan of Treatment Not on file documented as of this encounter Visit Diagnoses Not on filedocumented in this encounter Care Teams Manufacturing Manager Relationship Specialty Start Date End Date Maria A Soria, ANJU [address] [place], [place] [id number] PCP - General Family Medicine 02/15/23 documented as of this encounter
--- OUTSIDE RECORDS SUMMARY | 2025-02-06 20:04 | XMS_ITS | Encounter Summary ---
Author Organization [employer] ([place], [place], [place], [place]) Address [address] [place] [address] Care Team Providers Care In Mold Coater Name Role Phone Unavailable Primary Care Provider Unavailabl e Encounter Details Date Type Department Care Team (Late st Contact Info) Description 12/24/[address] [facility] Family Medicine [address] [place] [address] ProviderLaury MD [address] [place] [address] Social History Tobacco Use Types Packs/Day [...] Rash Primary Care Provider : Rema Ferreira, Steel Post Installer Accompanied By : Family/Spouse/SO Arrival Mode : [...] : No GI 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 : No Poultryman Hx : No Heart Attack : No [...] Source : Stated Height Entry Format : [place] Height, Inches : 65 Inch(Converted to: 5 ft 5 Inch, 165.10 cm) Clinical Height : 165.1 cm Weight Source : Bed scale Weight Entry Format : [place] Weight, Pounds : 221 lb Clinical Dosing Weight : 100.45 kg Body Surface Area-(BSA) : 2.15 m2 Body Mass Index : 36.9 kg/m2 (HI) [place] Body Weight : 57 kg Maddi Tomlin [...]
--- OUTSIDE RECORDS SUMMARY | 2025-02-06 20:04 | XMS_ITS | Encounter Summary ---
Author Organization [facility] Address [address], [address] [place] [address] Care Team Providers Care Thoroughbred Horse Farm Manager Name Role Phone Jaquan Conley MD Primary Care Provider [phone] Reason for Referral * Imaging (Emergency) - Closed Specialty Diagnoses / Procedures Referred By Contac t Referred To Contact Radiology Diagnoses Urinary retention Procedures US RENAL COMPLETE Yue Abdalla APRN [address] [place] [address] Phone: tel: Referral ID Status Reason Start Date Expiration Date Visits Re quested Visits Authorized [id number] Closed 01/09/2021 01/09/2022 1 1 Encounter Details Date Type Department Care Team (Latest Contact Info) Description 01/09/2021 Transcribe Orders [facility] PRE ACCESS [address] [place] [address] Yue Abdalla APRN [address] [place] [address] Urinary retention (Primary Dx) Social [...] abnormality of the kidneys or urinary bladder. [facility] Rm ROPE SILICA MACHINE OPERATOR [facility] US ORDERABLES Final Result documented in this encounter Visit Diagnoses Diagnosis Urinary retention- Primary Retention of urine, unspecified Urinary retention Retention of urine, unspecified documented in this encounter Care Teams Thoroughbred Horse Farm Manager Relationship Specialty Start Date End Date Jaquan Conley MD [address] [place] [address] PCP - General Internal Medicine 01/09/21 documented as of this encounter
--- OUTSIDE RECORDS SUMMARY | 2025-02-06 20:04 | XMS_ITS | Encounter Summary ---
Author Organization [employer] ([place], [place], [place], [place]) Address [address] [place] [address] Care Team Providers Care Teleprinter Name Role Phone Unavailable Primary Care Provider Unavailabl e Encounter Details Date Type Department Care Team (Late st Contact Info) Description 01/04/2020 Transcribed Document [facility] Family Medicine [address] [place] [address] ProviderLaury MD [address] [place] [address] Social History Tobacco Use Types Packs/Day [...] Policy Numbers : Insurance 1 Health Plan: [facility] Policy Number: [id number] Authorization Number: [id number] Insurance Primary Name : [facility] Policy Number: [id number] Authorization Status-Primary : Admit approved Reference Number-Primary : [id number] Authorization Number-Primary : [id number] Number of Days Authorized-Primary : 0 Day(s) [...]
--- OUTSIDE RECORDS SUMMARY | 2025-02-06 20:04 | XMS_ITS | Encounter Summary ---
Author Organization [employer] ([place], [place], [place], [place]) Address [address] [place] [address] Care Team Providers Care Test Desk Supervisor Name Role Phone Unavailable Primary Care Provider Unavailabl e Encounter Details Date Type Department Care Team (Late st Contact Info) Description 09/07/2018 Transcribed Document [facility] Family Medicine [address] [place] [address] ProviderLaury MD [address] [place] [address] Social History Tobacco Use Types Packs/Day [...] - Laury ProviderMD - 09/07/2018 9:31 PM COOKING CHEF [facility] Emergency Department Depart Summary PERSON INFORMATION Name Crystal Archer Age 28 Years 1990 Sex Female Language PCP Marital Status Phone [phone] Visit Id Visit Reason Specialty Enc Type Emergency Med Service Referred by Track Group GM Standard Discharge Tracking Id [id number] Checkout 09/07/2018 16:31:16 Checkin 09/07/2018 15:20:00 Acuity 4 - Non-urgent [facility] Dispo Type Arrival 09/07/2018 15:20:00 Reg Status LOS 000 01:11 Address: [address] [place] [address] [place] [address] POWERFORMS PHYSICIAN NOTES VITALS INFORMATION Vital Sign Triage Temp 99.1 Temp Route Oral/Mouth Pulse Rate 61 Respiratory Rate 20 Blood Pressure 145/ 91 LOCATION INFORMATION Arrival Nurse Unit Room Bed 09/07/2018 15:20:00 [facility] ED Waitroom ([facility]) 09/07/2018 15:34:51 [facility] ED 9 09/07/2018 16:31:16 [facility] ED Checkout ([facility]) MEDICAL INFORMATION Allergy Info: No Known [...]
--- OUTSIDE RECORDS SUMMARY | 2025-02-06 20:04 | XMS_ITS | Encounter Summary ---
Author Organization [facility] Address [address] 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
--- NOTE | 2025-02-06 20:05 | ED_ITS ---
<Statement entered by Daisy Centeno DO - 02/07/25 09:04> I was consulted by the PAOLO, and we discussed the complexity of problems being addressed. I approve the treatment and management plan for this patient's care in the emergency department, thus performing a substantial portion of the medical decision making. Daisy Centeno DO Discharge Plan Disposition Patient Disposition: Left Against Medical Advice Prescriptions Prescriptions: No Action (DME) OneTouch Ultra Test Strip See Rx Instructions .ROUTE .MEDSUPPLY Qty: 10 Patient Comments: USE 1 STRIP TO CHECK GLUCOSE THREE TIMES DAILY Rx Instructions: As directed atorvastatin 40 mg tablet 40 mg PO DAILY (DME) insulin syringe-needle U-100 [BD Insulin Syringe Ultra-Fine] 0.5 mL 31 gauge x 5/16 syringe See Rx Instructions .ROUTE .MEDSUPPLY Qty: 10 Patient Comments: USE DIRECTED TO INJECT INSULIN 4 PLUS TIMES DAILY IN EVENT OF PUMP FAILURE Rx Instructions: As directed (DME) blood-glucose meter [OneTouch Verio Flex meter] Misc See Rx Instructions .ROUTE .MEDSUPPLY Qty: 1 Rx Instructions: As directed Ozempic 0.25 mg or 0.5 mg (2 mg/3 mL) pen injector 0.25 mg SQ WEEKLY Patient Comments: INJECT 0.25 MG SUBCUTANEOUSLY ONCE A WEEK FOR 4 WEEKS, THEN INCREASE TO 0.5 MG ONCE A WEEK UNTIL YOU RETURN TO CLINIC valganciclovir 450 mg tablet 450 mg PO DAILY midodrine 5 mg tablet 5 mg PO TID Patient Comments: TAKE 1 TABLET BY MOUTH THREE TIMES DAILY mycophenolate mofetil 500 mg tablet 500 mg PO DAILY magnesium oxide 400 mg (241.3 mg magnesium) tablet 400 mg PO DAILY sodium bicarbonate 650 mg tablet 650 mg PO TID Patient Comments: TAKE 1 TABLET BY MOUTH THREE TIMES DAILY pantoprazole 40 mg tablet,delayed release (DR/EC) 40 mg PO DAILY Patient Comments: TAKE 1 TABLET BY MOUTH ONCE DAILY ergocalciferol (vitamin D2) 1,250 mcg (50,000 unit) capsule 1,250 mcg PO WEEKLY Patient Comments: TAKE 1 CAPSULE BY MOUTH ONCE A WEEK fludrocortisone 0.1 mg tablet 0.1 mg PO DAILY tacrolimus 0.5 mg capsule 0.5 mg PO DAILY methocarbamol 750 mg tablet 1,500 mg PO TID 5 Days Qty: 30 0RF lidocaine 5 % adhesive patch,medicated 1 patch topical DAILY Qty: 30 0RF Rx Instructions: leave on most painful area for up to 12 hrs Referrals Follow up/Referrals: Provider,Referral, MD [Primary Care Provider, Medical] - See instructions Clinical Impressions Clinical Impression: Left against medical advice Instructions Patient Instructions: DI for Acute Abdominal Pain Print Language Print Language: Marshallese Discharge ED Provider: Daisy Centeno General Adult HPI <Daisy Centeno DO - Last Filed: 02/06/25 20:05> General Chief complaint: Abdominal Pain Stated complaint: lower back pain ,burning with urination Time Seen by Provider: 02/06/25 20:04 Related Data Home Medications ?Medication ?Instructions ?Recorded ?Confirmed atorvastatin 40 mg tablet 40 mg PO DAILY 03/09/2408/19 blood sugar diagnostic (OneTouch #10 ea 03/09/2409/08 Ultra Test strips) blood-glucose meter (OneTouch #1 ea 03/09/24 09/08/24 Verio Flex Meter) insulin syringe-needle U-100 0.5 #10 ea 03/09/2409/08 mL 31 gauge x 5/16 (BD Insulin Syringe Ultra-Fine) semaglutide 0.25 mg or 0.5 mg (2 0.25 mg SQ WEEKLY 09/08/24 mg/3 mL) subcutaneous pen injector (Inventalator) ergocalciferol (vitamin D2) 1,250 1,250 mcg PO WEEKLY 09/08/24 09/08/24 mcg (50,000 unit) capsule fludrocortisone 0.1 mg tablet 0.1 mg PO DAILY 09/08/24 09/08/24 magnesium oxide 400 mg (241.3 mg 400 mg PO DAILY 09/0809/08/24 magnesium) tablet midodrine 5 mg tablet 5 mg PO TID 09/08/24 mycophenolate mofetil 500 mg tablet 500 mg PO DAILY 09/08/24 pantoprazole 40 mg tablet,delayed 40 mg PO DAILY 09/0809/08/24 release sodium bicarbonate 650 mg tablet 650 mg PO TID 5 09/08/24 tacrolimus 0.5 mg capsule, 0.5 mg PO DAILY 09/08/24 immediate-release valganciclovir 450 mg tablet 450 mg PO DAILY 09/08/24 09/08/24 Previous Rx's ?Medication ?Instructions ?Recorded lidocaine 5 % topical patch 1 patch topical DAILY #30 ea 09/08/24 methocarbamol 750 mg tablet 1,500 mg (2 x 750 mg) PO T ID 5 09/08/24 days #30 tabs Allergies Allergy/AdvReac Type Severity Reaction Status Date / Time NSAIDS (Non-Steroidal Allergy Other Verified 09/08/24 10:57 Anti-Inflamma <Ashlee Fregoso (ED), INFORMATICS APPLICATION ANALYST - Last Filed: 02/06/25 21:56> History of Present Illness HPI narrative: 34-year-old female presents to the ED today with complaint low back pain, lower abdominal pain and muscle spasms in her vaginal area. She says this started today. She says that she went to [facility] and got Keflex for a UTI. She says she is a kidney transplant patient. She had her transplant in November 2023. Patient complains that she is having muscle spasms in her vagina. She has had no fevers or chills. No nausea, vomiting or diarrhea. She says she has taken quadruple the amount of Tylenol that she supposed to take and [place] 7.5 . She does not believe this is a simple UTI as her back is hurting and she has so much pain and muscle spasms in her vaginal area. [facility] <Daisy Centeno DO - Last Filed: 02/06/25 20:05> [facility] Disclaimer: The information contained in this section may have been updated after the patient was seen, as this information can be updated by other users. 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 End stage renal disease Hypertension Seasonal allergies Diabetes type 1, uncontrolled Surgical History History of D&C History of delivery H/O tubal ligation H/O gastric sleeve Family History Grandmother Cancer Mother Cancer Social History Smoking Status: Current every day smoker alcohol intake: former substance use type: denies use current occupational status: disabled Travel in the last 8 weeks?: None Have you lived/traveled outside [place] in past 30 days?: No Contact w/someone who lives/traveled outside US past 30 days?: No Exposure to someone with infectious disease in past 14 days?: No Do you have a fever (greater than 100.4 F or 38 C)?: No Have you tested positive for COVID-19?: No Exposed to someone with COVID-19 in past 14 days?: No Do you have a sore throat?: No Do you have a cough?: No Do you have any weakness?: No Do you have any diarrhea?: No Are you experiencing any unusual bleeding?: No Do you have any muscle aches/pain?: No Do you have any abdominal pain?: No Are you experiencing loss of taste or smell?: No <Ashlee Fregoso (ED), INFORMATICS APPLICATION ANALYST - Last Filed: 02/06/25 21:56> ROS Obtained: Yes Systems reviewed as appropriate & no additional complaints except as documented Constitutional Constitutional: Reports as per HPI Physical Exam <Ashlee Fregoso (ED), INFORMATICS APPLICATION ANALYST - Last Filed: 02/06/25 21:56> General General appearance: alert Head Head exam: normocephalic Eye Eye exam: Present PERRL and EOMI ENT ENT exam: Present normal oropharynx and mucous membranes moist Neck Neck exam: Present trachea midline Respiratory Respiratory exam: Present normal lung sounds bilaterally Cardiovascular Cardiovascular exam: Present regular rate, normal rhythm, normal heart sounds, +S1 and +S2 Abdominal Exam Abdominal exam: Present soft and normal bowel sounds Abdominal tenderness: Present suprapubic and moderate (Pelvic pain) Extremities Exam Extremities exam: Present normal inspection, full ROM and normal capillary refill Back Exam Back exam: Present normal inspection Neurological Exam Neurological exam: Present alert and oriented X3 Skin Skin exam: Present warm, dry and intact Medical Decision Making <Daisy Centeno DO - Last Filed: 02/06/25 20:05> Medical Records Screening: Per USPSTF and CDC recommendations, given the prevalence of disease in our region, it is our hospital?s policy to screen for HIV and viral Hepatitis for all patients aged 18 and over and those with ongoing risk factors. Vital Signs: 02/06/25 20:10 02/06/25 20:32 Temperature 98.4 F 98.4 F Temperature Source Oral Pulse Rate 87 Pulse Rate [Radial] 87 Respiratory Rate 16 16 Blood Pressure 104/71 L Blood Pressure [Right Arm] 104/71 L Blood Pressure Mean [Right Arm] 82 Blood Pressure Position Sitting Blood Pressure Position [Right Arm] Sitting 02 Sat by Pulse Oximetry 100 Oxygen Delivery Method Room Air Room Air Orders (Tests/Meds): ED MEDICATIONS Discontinued Medications Generic Name Dose Route Start Last Admin Trade Name Freq PRN Reason Stop Dose Admin Diazepam 5 mg 02/06/25 20:16 Diazepam 10mg/2ml Syringe IV 02/06/25 20:17 ONCE ONE Sodium Chloride 1,000 mls @ 999 mls/hr 02/06/25 20:16 Sod Chlor 0.9% 1000ml Bag IV 02/06/25 21:16 .Q1H1M ONE Tamsulosin HCl 0.4 mg 02/06/25 21:00 Tamsulosin 0.4mg Capsule PO 03/08/25 20:59 [facility] ORDERS Category Date Time Status CBC [Complete Blood Count Auto Diff] Stat Lab 02/06/25 20:16 Ordered Comprehensive Metabolic Panel Stat Lab 02/06/25 20:16 Ordered HCG Qualitative, Serum Stat Lab 02/06/25 20:22 Ordered Lipase Stat Lab 02/06/25 20:16 Ordered Magnesium Stat Lab 02/06/25 20:16 Ordered <Ashlee Fregoso (ED), INFORMATICS APPLICATION ANALYST - Last Filed: 02/06/25 21:56> Riaz Inquiry Pt receiving controlled substance: No Riaz was queried for this patient: No Vital Signs: 02/06/25 20:10 02/06/25 20:32 Temperature 98.4 F 98.4 F Temperature Source Oral Pulse Rate 87 Pulse Rate [Radial] 87 Respiratory Rate 16 16 Blood Pressure 104/71 L Blood Pressure [Right Arm] 104/71 L Blood Pressure Mean [Right Arm] 82 Blood Pressure Position Sitting Blood Pressure Position [Right Arm] Sitting 02 Sat by Pulse Oximetry 100 Oxygen Delivery Method Room Air Room Air Orders (Tests/Meds): ED MEDICATIONS Discontinued Medications Generic Name Dose Route Start Last Admin Trade Name Freq PRN Reason Stop Dose Admin Diazepam 5 mg 02/06/25 20:16 Diazepam 10mg/2ml Syringe IV 02/06/25 20:17 ONCE ONE Sodium Chloride 1,000 mls @ 999 mls/hr 02/06/25 20:16 Sod Chlor 0.9% 1000ml Bag IV 02/06/25 21:16 .Q1H1M ONE Tamsulosin HCl 0.4 mg 02/06/25 21:00 Tamsulosin 0.4mg Capsule PO 03/08/25 20:59 HS [facility] ORDERS Category Date Time Status CBC [Complete Blood Count Auto Diff] Stat Lab 02/06/25 20:16 Ordered Comprehensive Metabolic Panel Stat Lab 02/06/25 20:16 Ordered HCG Qualitative, Serum Stat Lab 02/06/25 20:22 Ordered Lipase Stat Lab 02/06/25 20:16 Ordered Magnesium Stat Lab 02/06/25 20:16 Ordered Medical Decision Narrative: Patient arrives to the ER in stable condition for evaluation of her dysuria, back pain low pelvic pain and muscle spasms in her vagina. I ordered labs and CT scan without contrast to evaluate her symptoms. I talked to Dr. Centeno about the patient. Patient nurse went into stick her for an IV and labs and patient decided that she did not want to stay for care. She does not want an IV or labs. She says her primary care did labs yesterday and we could get her labs from that blood work. Dr. Centeno went in and discussed risks and benefits of leaving AMA. Dr. Centeno offered her going to scan without the labs. Patient declined offer. Discussed with her risk of rejection of her kidney transplant as well as risk of , infection. Patient verbalized understanding and still wants to sign out AMA. Critical Care <Ashlee Fregoso (ED), INFORMATICS APPLICATION ANALYST - Last Filed: 02/06/25 21:56> Critical Care Time Critical Care Time: No
--- OUTSIDE RECORDS SUMMARY | 2025-02-06 20:05 | XMS_ITS | Clinical Summary ---
Author Organization [facility] Address [address] [place] [address] Care Team Providers Care Allied Health Professional Name Role Phone Maria A Soria Vivek RENE Primary Care Provider [phone] Allergies Active Allergy Reactions Criticality Noted Date [...] Day Before Meals. Uses Insulin pump Active OneTouch Ultra test strip USE INSTRUCTED [...] Take 1 tablet by mouth Daily. Active azithromycin (Zithromax Z-Jose Daniel) 250 MG tabletIndicatio ns:Acute non-recurrent pansinusitis Take 2 tablets by mouth on day 1, then 1 tablet daily on days 2-5 6 tablet 09/14/19 25 Active vitamin D (ERGOCALCIFEROL ) 1.25 MG (03674 UT) capsule capsule Take 1 capsule by mouth once a week 12 capsule 02/05/20 25 Active cephalexin (KEFLEX) 500 MG capsuleIndicati ons:Dysuria Take 2 capsules by mouth 2 (Two) Times a Day for 5 days. 20 capsule 02/07/20 25 025 Active Vitamin D, Ergocalciferol, 30094 units capsule Take 1 capsule by mouth 1 (One) Time Per Week. 12 capsule 1 08/23/19 25 025 Discontinued vitamin D (ERGOCALCIFEROL ) 1.25 MG (47047 UT) capsule capsule Take 1 capsule by mouth once a week 12 capsule 02/05/20 25 025 Discontinued Active Problems Problem Noted Date Diagnosed Date Injury of left shoulder 10/03/2024 Assessment & Plan (10/04/2024 3:33 PM EDT): Valuated in [place] ED for the same approximately 1 month ago. Her pain was lessened by lidocaine patches and muscle relaxant, however her throbbing pain has persisted. She is not noted to have any decreased range of motion on physical exam, however she does have some tenderness on palpation. Will refer patient for x-ray as well as for physical therapy services. I have refilled her methocarbamol and lidocaine patches. Contact patient with imaging results when available. I have also requested records from [facility] ED visit which supposedly includes some diagnostic imaging as well. Acute recurrent pansinusitis 09/19/2024 Assessment & Plan (09/30/2024 1:00 PM EDT): Patient last seen in our office approximately 1 week ago with these complaints. 1 week prior to that presentation she was evaluated at [facility] with respiratory issues, tested negative for COVID and flu. Patient again tested negative in our office 1 week ago. She was assumed to have secondary bacterial sinusitis from prolonged course of congestion. She has continued daily use of antihistamine and Flonase and treated with azithromycin Z-Jose Daniel. Patient states her symptoms have not improved, only worsened. She reports a pattern in the past of requiring intermuscular Rocephin to resolve these issues. She has never been evaluated by ENT services for this issue. Patient advised to continue her daily antihistamine and nasal steroid Flonase. Will give one-time injection of Rocephin as documented. If no improvement will avoid further antimicrobial treatment and will refer to ENT services. Assessment & Plan (09/19/2024 4:15 PM EST): Patient with prolonged course of sinus pressure, sinus pain, sore throat, rhinorrhea and sneezing. She was a originally evaluated at [facility] over 1 week ago with respiratory issues, tested negative for COVID and flu. She is tested negative again in office today. Likely secondary bacterial sinusitis from prolonged course of congestion. Patient advised to continue use of daily antihistamine and Flonase. Will treat potential pathogens with azithromycin Z-Jose Daniel. Patient will advise if no improved Chronic fatigue 08/22/2024 Assessment & Plan (08/22/2024 11:25 AM EST): Patient states over the last 2 weeks she has been more tired than usual. She is also developed aversion to meat and beans. This has posed a problem to her she is post to be focusing on a high-protein diet after undergoing recent renal transplant. She discussed her recent issue with her transplant team this morning who advised her to present to her PCP for some diagnostic lab work. Patient denies any acute abdominal issues, no concern for acute abdomen on physical exam today. Patient had negative test in office today. Will check vitamin B12, vitamin D, TSH, folate, CBC and CMP for further evaluation Renal transplant recipient 06/07/2024 Assessment & Plan (08/22/2024 11:22 AM EST): On December 02, 2023 she received a call from the [facility] that they had a match for [...] daily. Continues to be followed closely by [facility] transplant as well as Dr. Stevens at [facility]. Assessment & Plan (06/07/2024 12:35 PM EST): Patient last evaluated in our office a little over 1 year ago in April 2023. At that time she was suffering from end-stage renal disease due to diabetic nephropathy, performing home peritoneal dialysis nightly. On December 02, 2023 she received a call from the [facility] that they had a match for [...] daily. Continues to be followed closely by [facility] transplant as well as Dr. Stevens at [facility]. Acute cystitis with hematuria 03/15/2023 Assessment & Plan (11/27/2024 12:41 PM EDT): Patient has been followed by ID for frequent UTI in the past. Frequency has decreased significantly, last episode being over on year ago. Patient UA with 3+ blood, negative nitrate and small leukocytes today. Given patient is symptomatic with history of frequent UTI with treat with course of macrobid as directed. If recurrent or resistant will need to return to ID. Assessment & Plan (04/25/2023 11:07 AM EDT): [...] use of insulin 02/15/2023 Assessment & Plan (08/22/2024 11:23 AM EST): Patient followed by endocrinology for her diabetes, she tells me today they are transitioning from her insulin pump to oral medications. Patient had been on a GLP-1 medication Ozempic to help with weight loss postoperatively but has since discontinued. Assessment & Plan (06/07/2024 12:34 PM EST): [...] (02/15/2023 3:08 PM EDT): Patient followed by [facility] for type 1 diabetes that was diagnosed [...] followed by Dr. Stevens at [facility]. Working towards renal transplant with [facility].. Assessment & Plan (03/15/2023 5:10 PM EDT): Etiology of end-stage renal disease appears to be hypertensive nephrosclerosis as well as diabetic nephropathy. She was a noncompliant type I diabetic for many years, diagnosed at the age of 12. She is currently performing home peritoneal dialysis nocturnally 6 days/week. Working towards renal transplant with [facility]. Followed by [facility], Dr. Stevens. Assessment & Plan (02/15/2023 3:01 PM EDT): Etiology of end-stage renal disease appears to be hypertensive nephrosclerosis as well as diabetic Nephropathy. She was a noncompliant type I diabetic for many years, diagnosed at the age of 12. She is currently performing home peritoneal dialysis nocturnally 6 days/week. Working towards renal transplant with [facility]. To pursue transplant services at [facility] as well but finances are making [...] been started on GLP-1 therapy by her contestant coordinator and is back down to 157 pounds [...] 07/21/2018 Essential hypertension 07/21/2018 Assessment & Plan (08/22/2024 11:24 AM EST): Blood pressure resuming KAYLAH control in office today, 102/60. She currently does not require use of antihypertensive agents. In the past she utilized lisinopril and carvedilol. Assessment & Plan (06/07/2024 12:37 PM EST): [...] of 107. She reports she saw her ice cream dispenser who wanted to increase her blood pressure medications but she refused stating she knew she stopped the medications her blood pressure would return to normal. She is now off both BuSpar and venlafaxine with blood pressure 110/74 in office today. Patient feels her mood is stable currently without medications due to some decrease stressors in the home. Her [id number] with whom she help caregive from Valentina's [...] parasites and C. difficile toxin. 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 02/15/2023 06/07/2024 [...] kidney disease 07/21/2018 06/07/2024 Acute hyperkalemia 07/21/2018 Acute renal failure 06/13/2018 06/07/20 Type 2 diabetes mellitus with hyperglycemia 12/30/2015 02/15/2023 Encounters Date Type Department Care Team Description 02/06/2025 10:45 AM EDT Office Visit [facility] [address] [place] [address] [place] [address] Maria A Soria, TUBER MACHINE CUTTER Dysuria (Primary Dx) 02/06/2025 Travel 02/04/2025 Refill [facility] [address] [place] [address] [place] [address] Maria A Soria, TUBER MACHINE CUTTER 02/03/2025 Refill [facility] [address] [place] [address] [place] [address] Maria A Soria, TUBER MACHINE CUTTER 11/29/2024 Telephone [facility] [address] [place] [address] [place] [address] Maria A Soria, TUBER MACHINE CUTTER 11/27/2024 Telephone [facility] [address] [place] [address] [place] [address] Maria A Soria, TUBER MACHINE CUTTER 11/22/2024 8:30 AM EDT Office Visit [address] [place] [address] Maria A Soria, TUBER MACHINE CUTTER Dysuria (Primary Dx); Acute cystitis with hematuria 11/22/2024 Patient rounding ([facility] only) [facility] [address] [place] [address] [place] [address] Chey Coello 11/22/2024 Travel from Last 3 Months Immunizations Immunization Administration Dates Next Due 31-influenza Vac Quardvalent Preservativ 019,04/06/2018 Flublok 18+yrs 04/13/2023 [...] Mass Index 21.11 02/06/2025 10:29 AM EDT Plan of Treatment Health Maintenance Due Date Last Done Comments Annual Gynecologic Pelvic and Breast Exam 1990 PAP SMEAR 2010 DIABETIC EYE EXAM 12/31/2023 12/30/2022 DIABETIC FOOT EXAM 03/15/2024 03/15/2023, 0 03/15/2023, 03/15/2023, Additional history exists HEMOGLOBIN A1C 02/19/2025 08/22/2024, 12/2023, 05/23/2024, Additional history exists INFLUENZA VACCINE 04/17/2025 04/26/2024, , 04/07/2021, Additional history exists COVID-19 Vaccine (#1) 05/29/2025 Postpo adilson from 1994 (Patient Refused) ANNUAL PHYSICAL 06/07/2025 06/07/2024, 03/15/2023 Hepatitis B (1 of 3 - 19+ 3-dose series) 08/05/2025 Postponed from 2008 (Patient Refused) LIPID PANEL 12/31/2025 12/31/2024, 11/2024, 03/05/2024, Additional history exists TDAP/TD VACCINES (3 - Td or Tdap) 09/28/2033 09/29/2023, 02/15/2018 HEPATITIS C SCREENING Completed 05/19/2023 , 05/19/2023, 07/23/2019, Additional history exists Pneumococcal Vaccine 0-49 Completed 04/26/2024, 12/2018 Procedures Procedure Name Priority Date/Time Associated Diagnosis Comments POCT URINALYSIS DIPSTICK, MANUAL Routine 11/22/2024 8:30 AM EDT Dysuria HEMOGLOBIN A1C Routine 08/22/2024 9:48 AM EST Type 2 diabetes mellitus with hyperglycemia, with long-term current use of insulin LIPID PANEL Routine 08/22/2024 9:48 AM EST Chronic fatigue HEPATITIS C ANTIBODY Routine 07/23/2019 10:03 AM EST Chronic kidney disease, stage V from Last 3 Months or Most Recently Relevant to Health Maintenance Results * (ABNORMAL) POC Urinalysis Dipstick (11/22/2024 8:30 AM EDT) Color Straw Yellow, Straw, Dark Yellow, Nancy [facility] Clarity, UA Hazy(A) Clear [facility] Glucose, UA Negative Negative mg/dL [facility] Bilirubin Small (1+)(A) Negative [facility] Ketones, UA Negative Negative [facility] Specific [place] 1.010 1.005 - 1.030 [facility] Blood, UA 3+(A) Negative [facility] pH, Urine 7.5 5.0 - 8.0 [facility] Protein, POC 2+(A) Negative mg/dL [facility] Urobilinogen, UA 0.2 E.U./dL Normal, 0.2 E.U./dL [facility] Leukocytes Small (1+)(A) Negative [facility] Nitrite, UA Negative Negative [facility] Urine 11/22/2024 8:30 AM EDT Maria A Soria TUBER MACHINE CUTTER POINT OF CARE TEST ORDERABL ES Final Result Performing Organization Address City/[facility] [address]/ZIP Co de Phone Number [facility]
[address] [place] [address], * (ABNORMAL) Hemoglobin A1c (08/22/2024 9:48 AM EST) Hemoglobin A1C 5.9(H) 4.8 - 5.6 % [facility] Comment: Prediabetes: 5.7 - 6.4 Diabetes: >6.4 Glycemic control for adults with diabetes: <7.0 Blood Structure of left upper limb / Unknown 08/22/2024 9:48 AM EST 08/22/2024 Comment:Blood Release to [facility] i Narrative [facility] [employer] [place] (AMBULATORY) - 08/23/2024 9:07 AM EST Performed at: [address] [id number] Meat Inspector: Jacob Whaley PhD, Phone: [phone] Maria A Soria APRN LAB BLOOD ORDERABLES Final Result Performing Organization Address City/[facility] [address]/[facility] Co de Phone Number [facility] [address] [place] [address], [place] [phone] [facility] [address] [place] [address], [place] [phone] * Lipid Panel (08/22/2024 9:48 AM EST) Pathologist [facility] Total Cholesterol 117 100 - 199 mg/dL [facility] Triglycerides 140 0 - 149 mg/dL [facility] HDL Cholesterol 40 >39 mg/dL [facility] VLDL Cholesterol Christian 24 5 - 40 mg/dL [facility] LDL Chol Calc (NIH) 53 0 - 99 mg/dL [facility] Blood Structure of left upper limb / Unknown 08/22/2024 9:48 AM EST 08/22/2024 Comment:Blood Release to [facility] michell Alberts [facility] ([facility] - 08/23/2024 9:07 AM EST Performed at: 01 - [facility] [address] [place], [place] [id number] Meat Inspector: Jacob Whaley PhD, Phone: [phone] Maria A Soria APRN LAB BLOOD ORDERABLES Final Result [facility] ([facility] [address] [place] [address], [place] [phone] [facility] [address] [place] [address], [place] [phone] * Hepatitis C Antibody (07/23/2019 10:03 AM EST) [facility] Hepatitis C Ab Non-Reacti ve Non-Reacti ve 07/23/2019 6:31 PM EST [facility] Blood Venipuncture / Unknown 07/23/2019 10:03 AM EST 07/23/2019 10:38 AM EST Mukul Stevens MD LAB BLOOD ORDERABLES F inal Result [facility]
[address] [place] [address], [place] [phone] from Last 3 Months or Most Recently [...] pulse or is breathing): Full Care Teams Allied Health Professional Relationship Specialty Start Date End Date Maria A Soria APRN [address] [place] [address] PCP - General Family Medicine 02/15/23
--- OUTSIDE RECORDS SUMMARY | 2025-02-06 20:05 | XMS_ITS | Clinical Summary ---
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 Role Phone Jaquan Conley MD Primary Care Provider [phone] Social History Tobacco Use Types Packs/Day Years Used Date Smoking Tobacco: Never Assessed Comments Unknown Sex and Gender Information Value Date Recorded Sex Assigned at Not on file Legal Sex Female 10:36 PM EDT Gender Identity Not on file Sexual Orientation Not on file Last Filed Vital Signs Vital Sign Reading Time Taken Comments Blood Pressure 127/90 04/24/2020 9:32 AM EDT Pulse 76 04/24/2020 9:32 AM EDT Temperature 35.2 C (95.3 F) 04/24/2020 9:32 AM EDT Respiratory Rate 16 04/24/2020 9:32 AM EDT Oxygen Saturation - - Inhaled Oxygen Concentration - - Weight 89.9 kg (198 lb 3.2 oz) 04/24/2020 9:32 A M EDT Height 165.1 cm (5' 5 ) 04/24/2020 9:32 AM EDT Body Mass Index 32.98 04/24/2020 9:32 AM EDT Plan of Treatment Health Maintenance Due Date Last Done Comments HIV Screening 1989 MMR Vaccines (1 of 1 - Standard series) 1990 COVID-19 Vaccine (#1) 1994 Varicella Vaccines (1 of 2 - 13+ 2-dose series) 2002 DTaP/Tdap/Td Vaccines (1 - Tdap) 2008 Hepatitis A Vaccines (1 of 2 - Risk 2-dose series) 2008 Pneumococcal Vaccine (1 of 2 - PCV) 2008 Zoster Vaccines (1 of 2) 2008 Hepatitis B Vaccines (1 of 3 - Risk Dialysis 4-dose series) 2009 Pap Smear 2010 Cervical Cancer Screening 2019 HPV/Cotest 2019 Depression Risk Screening 07/18/2024 SDOH Screening 07/18/2024 Influenza Vaccine (#1) 2025 , 04/13/2023, 04/07/2021, Additional history exists Diabetes Screening 12/31/2025 12/31/2024, 0 09/24/2024, 08/22/2024, Additional history exists Lipid Panel 12/31/2029 12/31/2024, 02/15, 05/19/2023 Hepatitis B Screening Completed 05/19/2023 Hepatitis C Screening Completed 05/19/2023 HIB Vaccines Aged Out No longer eligi ble based on patient's age to complete this topic HPV Vaccines Aged Out No longer eligi ble based on patient's age to complete this topic IPV Vaccines Aged Out No longer eligi ble based on patient's age to complete this topic Meningococcal B Vaccine Aged Out No l onger eligible based on patient's age to complete this topic Meningococcal Vaccine Aged Out No carl alejandrina eligible based on patient's age to complete this topic Rotavirus Vaccines Aged Out No longer eligible based on patient's age to complete this topic Procedures Procedure Name Priority Date/Time Associated Diagnosis Comments BK VIRUS PCR BLOOD Routine 12/31/2024 9: 28 AM EDT CMV PCR QUANT Routine 12/31/2024 9:28 AM EDT TACROLIMUS LEVEL Routine 12/31/2024 9:28 AM EDT URINALYSIS COMP W CULTURE IF INDICATED Routine 12/31/2024 9:28 AM EDT PHOSPHORUS Routine 12/31/2024 9:28 AM EDT MAGNESIUM Routine 12/31/2024 9:28 AM EDT LIPID PANEL Routine 12/31/2024 9:28 AM EDT CMP COMPREHENSIVE METABOLIC PANEL Routine 12/31/2024 9:28 AM EDT AUTODIFF Routine 12/31/2024 9:28 AM EDT CBC AND DIFFERENTIAL Routine 12/31/2024 9:28 AM EDT URINE CULTURE Routine 12/31/2024 9:17 AM EDT HEPATITIS C ANTIBODY Routine 05/19/2023 8:10 AM EDT from Last 3 Months or Most Recently Relevant to Health Maintenance Results * (ABNORMAL) URINALYSIS COMP W CULTURE IF INDICATED (12/31/2024 9:28 AM EDT) URINE TYPE. U CleanCatch 12/31/2024 11:47 AM EDT [facility] Urinalysis SS URINE COLOR YELLOW 12/31/2024 12:03 PM EDT [facility] Urinalysis SS URINE APPEARANCE SL CLOUDY 12/31/2024 12:03 PM EDT [facility] Urinalysis SS URINE SPECIFIC GRAVITY 1.021 1.001 - 1.030 12/31/2024 12:03 PM EDT [facility] Urinalysis SS URINE PH DIPSTICK 6.0 12/31/2024 12:03 PM EDT [facility] Urinalysis SS URINE LEUKOCYTE ESTERASE 500 Maty/uL Maty/ul 12/31/2024 12:03 PM EDT [facility] Urinalysis SS URINE NITRITE 2+(A) Negative 12/31/2024 12:03 PM EDT [facility] Urinalysis SS URINE PROTEIN DIPSTICK 10 mg/dL mg/dL 12/31/2024 12:03 PM EDT [facility] Urinalysis SS URINE GLUCOSE DIPSTICK NORMAL mg/dL 12/31/2024 12:03 PM EDT [facility] Urinalysis SS URINE KETONES DIPSTICK NEGATIVE Negative mg/dL 12/31/2024 12:03 PM EDT [facility] Urinalysis SS URINE UROBILINOGEN DIPSTICK NORMAL Normal mg/dL 12/31/2024 12:03 PM EDT L Urinalysis SS URINE BILIRUBIN DIPSTICK NEGATIVE Negative mg/dL 12/31/2024 12:03 PM EDT L Urinalysis SS URINE BLOOD DIPSTICK NEGATIVE Negative mg/dL 12/31/2024 12:03 PM EDT L Urinalysis SS Comment:In the total absence of hemolysis, a negative result may occur and not agree with the results of a urine sediment examination. CORRELATE UA Correlated Correlated 12/31/2024 12:05 PM EDT L Urinalysis SS UR RBC 5-9(A) None /HPF 12/31/2024 12:03 PM EDT L Urinalysis SS UR WBC >=50(A) None /HPF 12/31/2024 12:03 PM EDT L Urinalysis SS UR MUCOUS PRESENT 12/31/2024 12:03 PM EDT [facility] Urinalysis SS UR SQUAMOUS EPITHELIAL CELLS 0-4 None /HPF 12/31/2024 12:03 PM EDT [facility] Urinalysis SS Urine 12/31/2024 9:28 AM EDT 12/31/2024 11:47 AM EDT [facility] - 12/31/2024 12:05 [place] [address] Nikki Jeffery AUDIO VISUAL SECRETARY LAB URINE ORDERABLES Final Re sult Performing Organization Address City/State/[facility] [place] Number [place] [address], [facility] Urinalysis Pathology Department [address] [place] [address] * CMV PCR Quant [[id number]] (12/31/2024 9:28 AM EDT) CMV DNA PCR NOT DETECTED Not Detected 7:49 AM EDT [facility] TOMMIE Molecular SS Blood 12/31/2024 9:28 AM EDT 12/31/2024 10:49 AM EDT [facility] - 01/01/2025 7:49 AM EDT Performed by [facility], [address] [place] [address] [facility] BLOOD ORDERABLES Final Re sult Performing Organization Address [facility] de Phone Number [facility] [address] [place] [address], [facility] Molecular SS Pathology Department [address] [place] [address] * BK Virus PCR Blood (12/31/2024 9:28 AM EDT) Pathologist [facility] BK VIRUS PCR QUAL, BLOOD NOT DETECTED Not Detected 01/01/2025 7:58 AM EDT [facility] TOMMIE Molecular SS Comment:The linear range of this test is 21.5 - 100,000,000 IU/mL. Any result of <21.5 or >100,000,000 indicates a true value outside of the range that can be accurately determined using our current methodology. Blood 12/31/2024 9:28 AM EDT 12/31/2024 10:49 AM EDT [facility] - 01/01/2025 7:58 AM EDT Performed by [facility], [address] [place] [address] [facility] LAB BLOOD ORDERABLES Final Re sult Performing Organization Address [facility] de Phone Number [facility] [address] [place] [address], [facility] TOMMIE Molecular Pathology Department [address] [place] [address] * (ABNORMAL) AUTODIFF (12/31/2024 9:28 AM EDT) NEUT % 73.9 34.0 - 75.0 % 12/31/2024 10:10 AM EDT [facility] Heme Coag UA SS LYMPH % 15.2(L) 17.0 - 53.0 % 12/31/2024 10:10 AM EDT [facility] Heme Coag UA SS MONO % 9.9 2.0 - 12.0 % 12/31/2024 10:10 AM EDT L Heme Coag UA SS EOS % 0.8 0.0 - 7.0 % 12/31/2024 10:10 AM EDT [facility] Heme Coag UA SS BASO % 0.2 0.0 - 3.0 % 12/31/2024 10:10 AM EDT [facility] Heme Coag UA SS NEUT # 3.4 1.5 - 7.1 x10(3)/ul 12/31/2024 10:10 AM EDT [facility] Heme Coag UA SS LYMPH # 0.7(L) 1.0 - 3.5 x10(3)/ul 12/31/2024 10:10 AM EDT [facility] Heme Coag UA SS MONO # 0.5 0.0 - 1.0 x10(3)/ul 12/31/2024 10:10 AM EDT [facility] Heme Coag UA SS EOS # 0.0 0.0 - 0.7 x10(3)/ul 12/31/2024 10:10 AM EDT [facility] Heme Coag UA SS BASO # 0.0 0.0 - 0.3 x10(3)/ul 12/31/2024 10:10 AM EDT [facility] Heme Coag UA SS Blood 12/31/2024 9:28 AM EDT 12/31/2024 9:53 AM EDT [facility] - 12/31/2024 10:10 AM EDT Ordered by Discern Expert. Performed by [facility], [address] [place] [id number] Nikki Jeffery APRN LAB BLOOD ORDERABLES Final Re sult Performing Organization Address City/State/[facility] Co de Phone Number [facility] [address] [place] [address], [facility] Heme Coag UA SS Pathology Department [address] [place] [address] * (ABNORMAL) Tacrolimus level (12/31/2024 9:28 AM EDT) Tacrolimus Lvl 4.7(L) 5.0 - 20.0 ng/mL 12/31/2024 2:04 PM EDT [facility] Special Chemistry SS Comment: This test was performed, developed and its performance characteristics determined by at [facility], [address] [place] [address], [id number], [place], using a Laboratory Developed Test Tandem Mass Spectrometry LC/MS/MS. It has not been cleared or approved by the [place] Food and Drug Administration. Validation data is available upon request. Blood 12/31/2024 9:28 AM EDT 12/31/2024 9:53 AM EDT [facility] - 12/31/2024 2:04 PM EDT Performed by [facility], [address] [place] [address] Nikki Jeffery AUDIO VISUAL SECRETARY LAB BLOOD ORDERABLES Final Re sult [facility] [address] [place] [address], [facility] Special Chemistry Pathology Department [address] [place] [address] * (ABNORMAL) CBC With Differential (12/31/2024 9:28 AM EDT) WBC 4.6 4.0 - 10.8 x10(3)/ul 12/31/2024 10:10 AM EDT L Heme Coag UA SS RBC 3.64(L) 3.77 - 5.16 x10(6)/ul 12/31/2024 10:10 AM EDT [facility] Heme Coag UA SS HGB 10.6(L) 12.0 - 16.0 Gram/dL 12/31/2024 10:10 AM EDT L Heme Coag UA SS Hematocrit 31.6(L) 35.0 - 45.0 % 12/31/2024 10:10 AM EDT L Heme Coag UA SS MCV 86.9 79.4 - 94.8 fL 12/31/2024 10:10 AM EDT [facility] Heme Coag UA SS MCH 29.2 25.6 - 32.2 pg 12/31/2024 10:10 AM EDT [facility] Heme Coag UA SS MCHC 33.6 32.3 - 36.5 Gram/dL 12/31/2024 10:10 AM EDT [facility] Heme Coag UA SS RDW 12.5 11.0 - 15.5 % 12/31/2024 10:10 AM EDT [facility] Heme Coag UA SS Platelets 224 140 - 420 x10(3)/ul 12/31/2024 10:10 AM EDT [facility] Heme Coag UA SS MPV 11.2 8.7 - 12.0 fL 12/31/2024 10:10 AM EDT [facility] Heme Coag UA SS SLIDE REVIEW NONE 12/31/2024 10:10 AM EDT [facility] CH Remisol 2.0 SS Blood 12/31/2024 9:28 AM EDT 12/31/2024 9:53 AM EDT [facility] - 12/31/2024 10:10 AM EDT Performed by [facility], [address] [place] [address] [facility] LAB BLOOD ORDERABLES Final Re sult Performing Organization Address [facility] de Phone Number [address] [address], [facility] Heme Coag UA Pathology Department [address] [place], [place] [address] CH Remisol 2.0 Pathology Department [address] [place] [address] * Phosphorus (12/31/2024 9:28 AM EDT) Phosphorus 3.1 2.5 - 5.0 mg/dL 12/31/2024 10:31 AM EDT [facility] CH Remisol 2.0 Blood 12/31/2024 9:28 AM EDT 12/31/2024 9:54 AM EDT [facility] - 12/31/2024 10:31 AM EDT Performed by [facility], [address] [place] [address] [facility] LAB BLOOD ORDERABLES Final Re sult Performing Organization Address [facility] Co de Phone Number [facility] [address] [place] [address], [facility] CH Remisol 2.0 Pathology Department [address] [place] [address] * (ABNORMAL) Magnesium (12/31/2024 9:28 AM EDT) Magnesium 1.8(L) 1.9 - 2.7 mg/dL 12/31/2024 10:31 AM EDT [facility] CH Remisol 2.0 SS Blood Venous Draw / Unknown 12/31/2024 9:28 AM EDT 12/31/2024 9:54 AM EDT [facility] - 12/31/2024 10:31 AM EDT Performed by [facility], [address] [place] [address] Nikki Jeffery AUDIO VISUAL SECRETARY LAB BLOOD ORDERABLES Final Re sult Performing Organization Address City/State/[facility] Co de Phone Number [facility] [address] [place] [address], [facility] CH Remisol 2.0 SS Pathology Department [address] [place] [address] * (ABNORMAL) Lipid panel (12/31/2024 9:28 AM EDT) Triglycerides 212(H) <=149 mg/dL 12/31/2024 10:31 AM EDT [facility] CH Remisol 2.0 SS HDL 19(L) 40 - 60 mg/dL 12/31/2024 10:31 AM EDT [facility] CH Remisol 2.0 SS Cholesterol 69 <=199 mg/dL 12/31/2024 10:31 AM EDT [facility] CH Remisol 2.0 SS CHOLESTEROL VLDL CALCULATION 42 mg/dL 12/31/2024 10:31 AM EDT [facility] CH Remisol 2.0 SS CHOLESTEROL LDL CALCULATION 8 <=130 mg/dL 12/31/2024 10:31 AM EDT [facility] CH Remisol 2.0 SS CHOLESTEROL/HDL RATIO 3.63 0.00 - 4.49 Ratio 12/31/2024 10:31 AM EDT [facility] CH Remisol 2.0 SS LDL/HDL RATIO 0.42 Ratio 12/31/2024 10:31 AM EDT [facility] CH Remisol 2.0 SS Blood 12/31/2024 9:28 AM EDT 12/31/2024 9:54 AM EDT [facility] - 12/31/2024 10:31 AM EDT Performed by [facility], [address] [place] [address] Nikki Jeffery AUDIO VISUAL SECRETARY LAB BLOOD ORDERABLES Final Re sult [facility] [address] [place] [address], [facility] CH Remisol 2.0 SS Pathology Department [address] [place] [address] * (ABNORMAL) Comprehensive metabolic panel (12/31/2024 9:28 AM EDT) Sodium 142 136 - 145 mmol/L 12/31/2024 10:31 AM EDT [facility] CH Remisol 2.0 SS Potassium 4.9 3.5 - 5.1 mmol/L 12/31/2024 10:31 AM EDT [facility] CH Remisol 2.0 SS Chloride 111(H) 98 - 110 mmol/L 12/31/2024 10:31 AM EDT [facility] CH Remisol 2.0 SS CO2 23 21 - 31 mmol/L 12/31/2024 10:31 AM EDT [facility] CH Remisol 2.0 SS Anion Gap 8.0 2.0 - 11.0 12/31/2024 10:31 AM EDT [facility] CH Remisol 2.0 SS Calcium 9.0 8.6 - 10.2 mg/dL 12/31/2024 10:31 AM EDT [facility] CH Remisol 2.0 SS Glucose 169(H) 74 - 109 mg/dL 12/31/2024 10:31 AM EDT [facility] CH Remisol 2.0 SS BUN 20 7 - 25 mg/dL 12/31/2024 10:31 AM EDT L CH Remisol 2.0 SS Creatinine 1.31(H) 0.60 - 1.20 mg/dL 12/31/2024 10:31 AM EDT [facility] CH Remisol 2.0 SS BUN/Creatinine Ratio 15.3 6.0 - 22.0 12/31/2024 10:31 AM EDT L CH Remisol 2.0 SS Albumin 3.4(L) 3.5 - 5.2 Gram/dL 12/31/2024 10:31 AM EDT [facility] CH Remisol 2.0 SS Total Protein 6.1(L) 6.4 - 8.9 Gram/dL 12/31/2024 10:31 AM EDT [facility] CH Remisol 2.0 SS A/G Ratio 1.3 1.0 - 1.7 12/31/2024 10:31 AM EDT [facility] CH Remisol 2.0 SS Alkaline Phosphatase 144(H) 34 - 104 Units/Lite r 12/31/2024 10:31 AM EDT [facility] CH Remisol 2.0 SS ALT (SGPT) 19 <=24 Units/Lite r 12/31/2024 10:31 AM EDT [facility] CH Remisol 2.0 SS AST 19 13 - 39 Units/Lite r 12/31/2024 10:31 AM EDT [facility] CH Remisol 2.0 SS Total Bilirubin 0.4 0.3 - 1.0 mg/dL 12/31/2024 10:31 AM EDT [facility] CH Remisol 2.0 SS Globulin, Total 2.7 2.0 - 3.5 Gram/dL 12/31/2024 10:31 AM EDT [facility] CH Remisol 2.0 SS EGFR 54(L) >=60 mL/min/1.7 3m2 12/31/2024 10:31 AM EDT [facility] CH Remisol 2.0 SS Comment:eGFR calculation per formed using the CKD-EPI 2020 equation (race variable excluded) Blood Venous Draw / Unknown 12/31/2024 9:28 AM EDT 12/31/2024 9:54 AM EDT [facility] - 12/31/2024 10:31 AM EDT Performed by [facility], [address] [place] [address] [place] Nikki Jeffery APRN LAB BLOOD ORDERABLES Final Re sult [facility] [address] [place] [address], [facility] CH Remisol 2.0 SS Pathology Department [address] [place] [address] * Urine culture (12/31/2024 9:17 AM EDT) Urine 12/31/2024 9:17 AM EDT 12/31/2024 12:37 PM EDT Narrative [facility] - 01/05/2025 6:37 AM EDT FREDDIE Herron :1990 Sex Female t: : Microbiology - Bacteriology PROCEDURE: Culture Urine [R1] COLLECTED DATE/TIME: 12/31/2024 09:17 EDT SOURCE: U CleanCatch START DATE/TIME: 12/31/2024 12:37 EDT BODY SITE: ORDERING PHYSICIAN SYSTEM, SYSTEM FREE TEXT SOURCE: FINAL REPORTS Final Report [] Verified Date/Time: 01/05/2025 06:37 EDT >100,000 cfu/ml Escherichia coli Suceptibility Testing Escherichia coli Antibiotic KIRA Interp Ampicillin Resistant Ampicillin/Sulbactam Intermediate Cefazolin Susceptible Ceftriaxone Susceptible Minocycline Susceptible Nitrofurantoin Susceptible Trimethoprim/Sulfa Resistant Performing Locations R1: This test was performed at: [facility], Pathology Department, [address] [place] [address], [facility]- , [place], us Non-Ulp Provider LAB MICROBIOLOGY - GENERAL ANABEL UGARTE Final Result Performing Organization Address [facility] Co de Phone Number [facility] [address] [place] [address] * Hepatitis C antibody (05/19/2023 8:10 AM EDT) Hep C Virus Ab NONREACTIVE Nonreactive 05/19/2023 12:09 PM EDT UL Core Remisol Blood 05/19/2023 8:10 AM EDT 05/19/2023 11:19 AM EDT Yue Kraft MD LAB BLOOD ORDERABLES Edited Resu lt - Final [facility] [address] [place] [address], [facility] Remisol Pathology Department [address] [place] [address] from Last 3 Months or Most Recently Relevant to Health Maintenance Insurance [place] [employer] Care Teams 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
[2025-02-06 20:10] VITALS: BP 104/71; PULSE 87; RESP 16; TEMP 36.9; O2SAT 100; BMI 20.5
--- NOTE | 2025-02-06 20:28 | PC.NURSE ---
pt refusing IV and any blood draws, pt stated she would like to leave AMA. MD Centeno at bedside explaining importance of lab work and risk of leaving without treatment, pt acknowledges risks and still reqesting to leave. pt signed AMA paperwork and ambulated off the unit
[2025-02-06 20:32] VITALS: BP 104/71; PULSE 87; RESP 16; TEMP 36.9; O2SAT 100
== END 2025-02-06 20:34 | disposition left against medical advice (07) ==
PROVIDERS: Emergency Provider Student in an Organized Health Care Education/Training Program
DX: R10.2 Pelvic and perineal pain (principal); M54.50 Low back pain, unspecified; M62.838 Other muscle spasm; E10.9 Type 1 diabetes mellitus without complications; I15.2 Hypertension secondary to endocrine disorders; F17.200 Nicotine dependence, unspecified, uncomplicated
CPT/HCPCS: 99281

== ENCOUNTER 2025-02-26 09:57 | Outpatient (CLI) | payer MEDICAID, SELFPAY ==
--- OUTSIDE RECORDS SUMMARY | 2025-02-06 10:45 | XMS_ITS | Encounter Summary ---
Author Organization [facility] Address [address] [place] [address] Care Team Providers Care Hand Drawer In Name Role Phone Maria A Soria APRN Primary Care Provider [phone] Reason for Visit * Reason Comments Dysuria Encounter Details Date Type Department Care Team (Late st Contact Info) Description 02/06/2025 10:45 AM EDT Office Visit [facility] [address] [place] [phone] Maria A Soria APRN [address] [place] [address] Dysuria (Primary Dx) Social History Tobacco Use Types [...] Date Recorded Patient Health Questionnaire-2 Score 0 08/22/2024 Comments No Sex and Gender Information Value Date Recorded Sex Assigned at Not on file Legal Sex Female 3:21 PM EDT Gender Identity Not on file Sexual Orientation Not on file documented as of this encounter Last Filed Vital Signs Vital Sign Reading Time Taken Comments Blood Pressure 122/80 02/06/2025 10:29 AM EDT Pulse 78 02/06/2025 10:29 AM EDT Temperature 36.3 C (97.3 F) 02/06/2025 10:29 AM EDT Respiratory Rate 16 02/06/2025 10:29 AM EDT Oxygen Saturation 96% 02/06/2025 10:29 AM EDT Inhaled Oxygen Concentration - - Weight 55.8 kg (123 lb) 02/06/2025 10:29 AM EDT Height 162.6 cm (5' 4 ) 02/06/2025 10:29 AM EDT Body Mass Index 21.11 02/06/2025 10:29 AM EDT documented in this encounter Progress Notes * Maria A Soria APRN - 02/11/2025 7:39 AM EDTAssociated Problem(s): Dysuria presents today for complaints of dysuria. Patient feels as though since undergoing renal transplantshe is prone to urinary tract infections during her menstrual cycle. Patient states for the last 2 days she has experienced burning with urination as well as feelings of incomplete emptying. Contacted her transplant medical team at [facility] this morning with her symptoms set. She was advised to present to her primary care for urinalysis and urine culture and treatment with cephalexin. Patient denies any fever, chills, nausea or hematuria. UA not completed due to use of Azo whichmay skew results. at the advice of her transplant team will proceed with empiric therapy utilizing cephalexin while also sending urine for culture for further evaluation. Discussed postcoital hygieneas well as benefits of cranberry juice and cranberry pills. Will contact patient with urine cultureresults when available. * Maria A Soria APRN - 02/06/2025 10:45 AM EDT Images from the original note were not included. Office Note Name: Crystal Archer : 1990 Chief Complaint Dysuria Subjective History of Present Illness: Crystal Archer is a 34 y.o. female who presents today for complaints of dysuria. Patient feels as though since undergoing renal transplant she is prone to urinary tract infections during her menstrual cycle. Patient states for the last 2 days she has experienced burning with urination as well as feelings of incomplete emptying. Contacted her transplant medical team at [facility] this morning with her symptoms set. She was advised to present to her primary care for urinalysis and urine culture and treatment with cephalexin. Patient denies any fever, chills, nausea or hematuria. No further complaints or concern Review of Systems Constitutional: Negative for chills, fatigue and fever. Respiratory: Negative for cough and shortness of breath. Gastrointestinal: Negative for constipation, diarrhea, nausea and vomiting. Genitourinary: Positive for difficulty urinating, dysuria, frequency and urgency. Negative for decreased urine volume, flank pain, pelvic pain, pelvic pressure and urinary incontinence. Musculoskeletal: Negative for back pain. Objective Past 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: Diagnosis Date Allergic Anxiety Arthritis Chronic constipation Depression Diabetes mellitus Excessive thirst H/O mammogram 2014 Headache Hot skin Hyperlipidemia Hypertension Injury of back Leg cramps Pap smear for cervical cancer screening 11/08/2015 Renal disorder Sinusitis Urinary tract infection Past Surgical History: Procedure Laterality Date SECTION 10/17/2012 SECTION GASTRIC SLEEVE LAPAROSCOPIC INDUCED 2006 [facility] History reviewed. No pertinent family history. Vital Signs BP 122/80 (BP Location: Left arm, Patient Position: Sitting, Cuff Size: Adult) Pulse 78 Temp 97.3 ??F (36.3 ??C) (Temporal) Resp 16 Ht 162.6 cm (64 ) Wt 55.8 kg (123 lb) SpO2 96% BMI 21.11 kg/m?? Estimated body mass index is 21.11 kg/m?? as calculated from the following: Height as of this encounter: 162.6 cm (64 ). Weight as of this encounter: 55.8 kg (123 lb). Facility age limit for growth %rylan is 20 years. Physical Exam Vitals reviewed. Constitutional: Appearance: Normal appearance. Cardiovascular: Rate and Rhythm: Normal rate and regular rhythm. Pulses: Normal pulses. Heart sounds: Normal heart sounds. Pulmonary: Effort: Pulmonary effort is normal. Breath sounds: Normal breath sounds. Abdominal: General: Bowel sounds are normal. Palpations: Abdomen is soft. Tenderness: There is no abdominal tenderness. There is no right CVA tenderness, left CVA tendernessor guarding. Musculoskeletal: Cervical back: Neck supple. Skin: General: Skin is dry. Neurological: Mental Status: She is alert and oriented to person, place, and time. POCT Results (if applicable): Results for orders placed or performed in visit on 02/06/25 Urine Culture - Urine, Urine, Clean Catch Collection Time: 02/06/25 10:33 AM Specimen: Urine, Clean Catch Urine Release to dennis Result Value Ref Range Urine Culture Final report Result 1 No growth Assessment and Plan Diagnoses and all orders for this visit: 1. Dysuria (Primary) Assessment & Plan: presents today for complaints of dysuria. Patient feels as though since undergoing renal transplantshe is prone to urinary tract infections during her menstrual cycle. Patient states for the last 2 days she has experienced burning with urination as well as feelings of incomplete emptying. Contacted her transplant medical team at [facility] this morning with her symptoms set. She was advised to present to her primary care for urinalysis and urine culture and treatment with cephalexin. Patient denies any fever, chills, nausea or hematuria. UA not completed due to use of Azo whichmay skew results. at the advice of her transplant team will proceed with empiric therapy utilizing cephalexin while also sending urine for culture for further evaluation. Discussed postcoital hygieneas well as benefits of cranberry juice and cranberry pills. Will contact patient with urine cultureresults when available. Orders: - Cancel: POC Urinalysis Dipstick - Urine Culture - Urine, Urine, Clean Catch - cephalexin (KEFLEX) 500 MG capsule; Take 2 capsules by mouth 2 (Two) Times a Day for 5 days. Dispense: 20 capsule; Refill: 0 BMI is within normal parameters. No other follow-up for BMI required. Follow Up No follow-ups on file. Maria A Soria APRN documented in this encounter Plan of Treatment Not on file documented as of this encounter Procedures Procedure Name Priority Date/Time Associated Diagnosis Comments URINE CULTURE Routine 02/06/2025 10:33 AM EDT Dysuria documented in this encounter Results * Urine Culture - Urine, Urine, Clean Catch (02/06/2025 10:33 AM EDT) Urine Culture Final report [facility] Result 1 No growth [facility] Urine Urine specimen obtained by clean catch procedure / Unknown 02/06/2025 10:33 AM EDT 02/06/2025 Comment:Urine Release to [facility] Airsteo [facility] - 02/08/2025 6:06 AM EDT Performed at: - [facility] [address] [id number] Airline Mechanic: Jacob Whaley PhD, Phone: [phone] us Maria A Soria APRN MICROBIOLOGY - GENERAL ANABEL [place] Final Result [facility] [address] [place] [address], [place] [phone] [facility] [address] [place] [address], [place] [phone] documented in this encounter Visit Diagnoses Diagnosis Dysuria- Primary documented in this encounter Care Teams Hand Drawer In Relationship Specialty Start Date End Date Maria A Soria APRN [address] [place] [address] PCP - General Family Medicine 02/15/23 documented as of this encounter
--- OUTSIDE RECORDS SUMMARY | 2025-02-22 10:30 | XMS_ITS | Encounter Summary ---
Author Organization [facility] Address [address] [place] [address] Care Team Providers Care Residential Support Worker Name Role Phone Maria A Soria APRN Primary Care Provider [phone] Reason for Visit * Reason Comments Pre-op Exam Encounter Details Date Type Department Care Team (Late st Contact Info) Description 02/22/2025 10:30 AM EDT Office Visit [facility] [address] [place] [phone] Maria A Soria APRN [address] [place] [address] Type 2 diabetes mellitus with [...] 2023 she received a call from the [facility] that they had a match [...] daily. Continues to be followed closely by [facility] transplant as well as Dr. Stevens at [facility]. * Maria A Soria APRN - 02/25/2025 7:40 AM EDTAssociated Problem(s): Pre- operative clearance Patient with upcoming plans for uterine ablation due to heavy menstrual bleeding. Followed by Dr. Lynch at [facility]. In review of most recent labs and [...] therapy for quite some time by her egg tester. Patient has not been on GLP- 1 [...] insulin Patient followed by endocrinology at the [facility]. Patient currently utilizes insulin pump and GCS [...] clearance prior to undergoing uterine ablation at [facility]. Patient is followed by Dr. Lynch. [...] 2023 she received a call from the [facility] that they had a match [...] daily. Continues to be followed closely by [facility] transplant as well as Dr. Stevens at [facility]. Recent renalfunction shows creatinine of 1.31 and GFR of 54. Patient followed by endocrinology at the [facility]. Patient currently utilizes insulin pump and GCS [...] 10/17/2012 SECTION GASTRIC SLEEVE LAPAROSCOPIC INDUCED 2006 [facility] History reviewed. No pertinent family history. Vital [...] Plan: Patient followed by endocrinology at the [facility]. Patient currently utilizes insulin pump and GCS [...] therapy for quite some time by her egg tester. Patient has not been on GLP- 1 [...] menstrual bleeding. Followed by Dr. Lynch at [facility]. In review of most recent labs and patient's current physical status she would be considered low risk to pursue with this intervention. No past history of difficulty with extubation or adverse reactions to anesthesia. Her glucose is very well-controlled, A1c 5.6% in office today 8. Renal transplant recipient Assessment & Plan: On December 02, 2023 she received a call from the [facility] that they had a match [...] daily. Continues to be followed closely by [facility] transplant as well as Dr. Stevens at [facility]. BMI is within normal parameters. No other [...] Hemoglobin A1C 5.6 4.5 - 5.7 % [facility] Lot Number [id number] [facility] Expiration Date [address] [facility] Blood 02/22/2025 10:2 6 AM EDT Maria A Soria APRN POINT OF CARE TEST ORDERABL ES Final Result [facility]
[address] [place] [address], documented in this encounter Visit Diagnoses Diagnosis [...] recipient documented in this encounter Care Teams Residential Support Worker Relationship Specialty Start Date End Date Maria A Soria APRN [address] [place] [phone] PCP - General Family Medicine 02/15/23 documented as of this encounter
[2025-02-26 10:14] LABS: Microscopic, Urine URINE MICROSCOPIC (MICROSCOPIC)
--- OUTSIDE RECORDS SUMMARY | 2025-02-26 10:15 | XMS_ITS | Encounter Summary ---
Author Organization [employer] ([place], [place], [place], [place]) Address [address] [place] [address] Care Team Providers Care Glass Sagger Name Role Phone Unavailable Primary Care Provider Unavailabl e Encounter Details Date Type Department Care Team (Late st Contact Info) Description 11/19/2018 Transcribed Document [facility] [place] Family Medicine [address] [place] [address] ProviderLaury MD [address] [place] [address] Social History Tobacco Use Types Packs/Day [...] : No GI 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 : No Climatology Teacher Hx : No Heart Attack : No [...] Preferred Communication Mode : Verbal Languages : Singaporean Child/Parent Domestic Concerns : None Threats of Suicide : No Marry Erickson 11/18/2018 20:14 EDT Height and Weight Height Source : Stated Height Entry Format : [place] Height, Inches : 65 Inch(Converted to: 5 ft 5 Inch, 165.10 cm) Clinical Height : 165.1 cm Weight Source : Bed scale Weight Entry Format : [place] Weight, Pounds : 220 lb Clinical Dosing Weight : 100 kg Body Surface Area-(BSA) : 2.14 m2 Body Mass Index : 36.7 kg/m2 (HI) [place] Body Weight : 57 kg Marry Erickson [...] Allergies ; Type: Allergy ; Updated By: Blanac Chisholm RN; Reviewed Date: 09/07/2018 15:26 EST Pain Pain Assessment Grid Location : Tooth/Teeth Marry Erickson 11/18/2018 20:14 EDT Intensity : 8 Marry Erickson 11/18/2018 20:14 EDT documented in this encounter Plan of Treatment Not on file documented as of this encounter Visit Diagnoses Not on filedocumented in this encounter
--- OUTSIDE RECORDS SUMMARY | 2025-02-26 10:15 | XMS_ITS | Encounter Summary ---
Author Organization [facility] Address [address] [place] [address] Care Team Providers Care Science And Operations Officer Name Role Phone Maria A Soria APRN Primary Care Provider [phone] Reason for Visit * Reason Comments Med Refill Encounter Details Date Type Department Care Team (Late st Contact Info) Description 02/04/2025 Refill [facility] PRIMARY CARE [address] [place] [phone] Maria A Soria APRN [address] [place], [place] [id number] Social History Tobacco Use Types Packs/Day Years [...] on filedocumented in this encounter Care Teams Science And Operations Officer Relationship Specialty Start Date End Date Maria A Soria APRN [address] [phone] PCP - General Family Medicine 02/15/23 documented as of this encounter
--- OUTSIDE RECORDS SUMMARY | 2025-02-26 10:15 | XMS_ITS | Encounter Summary ---
Author Organization [employer] ([place], [place], [place], [place]) Address [address] [place] [address] Care Team Providers Care Top Lift Compressor Name Role Phone Unavailable Primary Care Provider Unavailabl e Encounter Details Date Type Department Care Team (Late st Contact Info) Description 01/19/2020 Transcribed Document [facility] [place] [address] [place] [address] ProviderLaury MD [address] [place] [address] Social History Tobacco Use Types Packs/Day [...] Family History of Anesthesia Reaction : None OCTAVOI BRAND RN - 01/19/2020 8:36 EDT Functional [...] Obtained From : Patient Primary Language : Somali Preferred Communication Mode : Verbal Communication Barrier : None Diabetes Manager Needed : No OCTAVIO BRAND RN - [...] Scale Risk Level : 0-24 Low Risk [place] Fall Interventions : Adequate lighting, Bed in [...] Source : Stated Height Entry Format : [place] Height, Feet : 5 ft(Converted to: 152 cm, 60 Inch) Height, Inches : 5 Inch(Converted to: 0 ft 5 Inch, 12.70 cm) Clinical Height : 165.1 cm Weight Source : Standing scale Weight Entry Format : [place] Clinical Dosing Weight : 104.91 kg Weight, Pounds : 230.8 lb Body Surface Area (BSA) : 2.1 m2 Body Mass Index : 38.5 kg/m2 (HI) [place] Body Weight : 57 kg OCTAVIO BRAND [...] OCTAVIO BRAND RN - 01/19/2020 8:36 EDT [place] Suicide Severity Rating Scale (C-SSRS) CSSRS Past [...]
--- OUTSIDE RECORDS SUMMARY | 2025-02-26 10:15 | XMS_ITS | Encounter Summary ---
Author Organization [employer] ([place], [place], [place]) Address [address] [place] [address] Care Team Providers Care Cement Mason Apprentice Name Role Phone Unavailable Primary Care Provider Unavailabl e Encounter Details Date Type Department Care Team (Late st Contact Info) Description 11/19/2018 Transcribed Document [facility] [place] [address] [place] [address] ProviderLaury MD [address] [place] [address] Social History Tobacco Use Types Packs/Day [...] Laury ProviderMD - 11/19/2018 1:52 AM CDT [facility] ADDRESS [place], [place] [phone] Name:Crystal Archer Visit Date:11/18/2018 20:06:00 Emergency Department Care Providers: Physician: Clara Elias Phys Asst Physician: Our doctors and staff appreciate your choice of [facility] for your emergency medical care. Read these instructions carefully. Please call us if you have any questions about your medical problem. [facility] Emergency Department [phone] [facility] Emergency Department [phone] [facility] Emergency Department [phone] Patient Education Materials Gianni Crystal Jones has [...] start to feel better. ??? Only take gqpm-gvd-muhalil or prescription medicines for pain, discomfort, or [...] 01/29/2014 Elsevier Interactive Patient Education ? 2017 [employer] Obstetrics and Gynecology Urinary Tract Infection, Adult Introduction A urinary tract infection (UTI) is an infection of any part of the urinary tract. The urinary tract includes the: ??? Kidneys. ??? Ureters. ??? Bladder. ??? Urethra. These organs make, store, and get rid of pee (urine) in the body. Follow these instructions at home: ??? Take gvjn-ifp-yzfblcv and prescription medicines only as told by [...] x-ray department to pick them up o [facility] # [phone] o [facility] # [phone] o [facility] # [phone] ?? If you had cultures done and [...] quit. o National Network of Tobacco Cessation [id number]-DVWU-NOW o [place] [employer] o [place] [employer] [phone] o Sai/Manuel Mccray [phone] FINANCIAL INFORMATION ?? [facility] provides financial counseling to anyone who requests our services. ?? Emergency Physicians are independently contracted to provide your care. You will receive a bill for the care provided to you by the Physician and/or the Physician Oracle Database Manager. This will be a separate bill [...] Patient Education Materials: ENT Otitis Media, Adult, Naxd-rx-Bveh Obstetrics and Gynecology Urinary Tract Infection, Adult, Yttn-qw-Ioml Follow-Up Instructions: Follow Up With: Where: When: [...] as recommended Patient Signature / or Patient Instructor Of Education Provider Signature Date documented in this encounter Plan of Treatment Not on file documented as of this encounter Visit Diagnoses Not on filedocumented in this encounter
--- OUTSIDE RECORDS SUMMARY | 2025-02-26 10:15 | XMS_ITS | Encounter Summary ---
Author Organization [employer] ([place], [place], [place]) Address [address] [place] [address] Care Team Providers Care Web Portal Developer Name Role Phone Unavailable Primary Care Provider Unavailabl e Encounter Details Date Type Department Care Team (Late st Contact Info) Description 09/26/2018 Transcribed Document [facility] [place] Family Medicine [address] [place] [address] ProviderLaury MD [address] [place] [address] Social History Tobacco Use Types Packs/Day [...] Laury ProviderMD - 09/26/2018 10:56 PM CDT [facility] Emergency Department Depart Summary PERSON INFORMATION Name Cyrstal Archer Age 28 Years 1990 Sex Female Language PCP Marital Status Phone [phone] Visit Id Visit Reason Specialty Enc Type Emergency Med Service Referred by Track [facility] Discharge Tracking Id [id number] Checkout 09/26/2018 18:56:15 Checkin 09/26/2018 16:44:00 Acuity 3 - Urgent [facility] Dispo Type Arrival 09/26/2018 16:44:00 Reg Status LOS 000 02:12 Address: [address] [place] [address] [place] [address] POWERFORMS PHYSICIAN NOTES VITALS INFORMATION Vital Sign Triage Temp 98.7 Temp Route Oral/Mouth Pulse Rate 102 Respiratory Rate 20 Blood Pressure 140/ 72 LOCATION INFORMATION Arrival Nurse Unit Room Bed 09/26/2018 16:44:00 [facility] ED Waitroom ([facility]) 09/26/2018 16:50:17 [facility] ED 3 09/26/2018 18:56:15 [facility] ED Checkout ([facility] [...]
--- OUTSIDE RECORDS SUMMARY | 2025-02-26 10:15 | XMS_ITS | Encounter Summary ---
Author Organization [employer] ([place], [place], [place], [place]) Address [address] [place] [address] Care Team Providers Care Mill Feeder Name Role Phone Unavailable Primary Care Provider Unavailabl e Encounter Details Date Type Department Care Team (Late st Contact Info) Description 09/15/2021 Transcribed Document [facility] [place] [address] [place] [address] ProviderLaury MD [address] [place] [address] Social History Tobacco Use Types [...] Date Blaine rded Speak language other than Eritrean at home Not on file 07/30/2023 Want [...] - Historical Provider, - 09/15/2021 11:12 AM TEAROOM HOST/HOSTESS Broset Violence Assessment Entered On: 09/15/2021 12:44 [...]
--- OUTSIDE RECORDS SUMMARY | 2025-02-26 10:15 | XMS_ITS | Encounter Summary ---
Author Organization [employer] ([place]) Address [address] [place] [address] Care Team Providers Care Wood Type Finisher Name Role Phone Unavailable Primary Care Provider Unavailabl e Encounter Details Date Type Department Care Team (Late st Contact Info) Description 01/04/2020 Transcribed Document [facility] [place] [facility] [place] [address] ProviderLaury MD [address] [place] [address] Social History Tobacco Use Types Packs/Day [...] Laparoscopic sleeve gastrectomy SURGEON: Xavi Mejia M.D. MANUFACTURING TEAM MEMBER: Daniel steinberg MD ANESTHESIA: General. SPECIMEN: Stomach. INDICATION FOR PROCEDURE: is a 29-year-old patient with half-way history of morbid obesity and CKD, has [...] was done, we proceeded to place the 54-[place]ay[place] Islander bougie down the esophagus into the stomach under direct visualization. When it was in the antrum, we proceeded to staple the stomach in a parallel manner to the greater curvature, creating a sleeve gastrectomy using the [place] stapler. We used green loads, all reinforced [...] x2. Electronically signed by Zuleyka Byrd Conversion Delinquent Notice Machine Operator Cerner at 11/02/2022 10:04 AM CDT documented in this encounter Plan of Treatment Not on file documented as of this encounter Visit Diagnoses Not on filedocumented in this encounter
--- OUTSIDE RECORDS SUMMARY | 2025-02-26 10:15 | XMS_ITS | Encounter Summary ---
Author Organization [employer] ([place], [place], [place]) Address [address] [place] [address] Care Team Providers Care Finisher Cold Rolling Name Role Phone Unavailable Primary Care Provider Unavailabl e Encounter Details Date Type Department Care Team (Late st Contact Info) Description 01/05/2020 Transcribed Document [facility] [place] [address] [place] [address] ProviderLaury MD [address] [place] [address] Social History Tobacco Use [...] your book, please call the Center at [phone]. documented in this encounter Plan of Treatment Not on file documented as of this encounter Visit Diagnoses Not on filedocumented in this encounter
--- OUTSIDE RECORDS SUMMARY | 2025-02-26 10:15 | XMS_ITS | Encounter Summary ---
Author Organization [employer] ([place]) Address [address] [place] [address] Care Team Providers Care Top Steep Tender Name Role Phone Unavailable Primary Care Provider Unavailabl e Encounter Details Date Type Department Care Team (Late st Contact Info) Description 01/05/2020 Transcribed Document [facility] [place] [address] [place] [address] ProviderLaury MD [address] [place] [address] Social History Tobacco Use Types Packs/Day [...]
--- OUTSIDE RECORDS SUMMARY | 2025-02-26 10:15 | XMS_ITS | Encounter Summary ---
Author Organization [employer] ([place], [place], [place], [place]) Address [address] [place] [address] Care Team Providers Care Dairy Frozen Manager Name Role Phone Unavailable Primary Care Provider Unavailabl e Encounter Details Date Type Department Care Team (Late st Contact Info) Description 09/26/2018 Transcribed Document [facility] Family Medicine [address] [place] [address] ProviderLaury MD [address] [place] [address] Social History Tobacco Use Types Packs/Day [...] Laury ProviderMD - 09/26/2018 10:56 PM CDT [facility] ADDR[facility] [place], [place] [phone] Name:Crystal Archer Visit Date:09/26/2018 16:44:00 Emergency Department Care Providers: Physician: INDIO PEREA Physician: Our doctors and staff appreciate your choice of [facility] for your emergency medical care. Read these instructions carefully. Please call us if you have any questions about your medical problem. [facility] Emergency Department [phone] [facility] Emergency Department [phone] [facility] Emergency Department [phone] Patient Education Materials Crystal Archer Karen has [...] 07/04/2006 Document Revised: 12/09/2016 Document Reviewed: 03/04/2014 [employer] Interactive Patient Education ? 2017 [employer] Inc. FOLLOW UP CARE Most conditions that [...] pick them up o [facility] # [phone] o [facility] # [phone] o [facility] # [phone] ?? If you had cultures done and [...] quit. o National Network of Tobacco Cessation [id number]-LYHZ-NOW o [place] Lung Association o [place] Heart Association [phone] o Sai/Manuel Mccray [phone] FINANCIAL INFORMATION ?? [facility] provides financial counseling to anyone who requests our services. ?? Emergency Physicians are independently contracted to provide your care. You will receive a bill for the care provided to you by the Physician and/or the Physician Rn Integrity. This will be a separate bill from [...] as recommended Patient Signature / or Patient Scallop Binder Provider Signature Date Date/Time 09/26/2018 18:56 [facility] [...] oral tablet loratadine 10 mg oral capsule [place] 5 mg-325 mg oral tablet sodium bicarbonate [...]
--- OUTSIDE RECORDS SUMMARY | 2025-02-26 10:15 | XMS_ITS | Encounter Summary ---
Author Organization [employer] ([place], [place], [place], [place]) Address [address] [place] [address] Care Team Providers Care Medical Donation Professional Name Role Phone Unavailable Primary Care Provider Unavailabl e Encounter Details Date Type Department Care Team (Late st Contact Info) Description 08/24/2019 Transcribed Document [facility] Family Medicine [address] [place] [address] ProviderLaury MD [address] [place] [address] Social History Tobacco Use Types Packs/Day [...] - Laury ProviderMD - 08/24/2019 2:30 PM SLOT SHIFT SUPERVISOR [facility] PreOp Summary Primary Physician: LARRY MARTINES MD-SUR Finalized Date/Time: 08/24/19 10:30:24 Pt. Name: FREDDIE RUGGIEROGARCIA /Sex: 1990 Female Med Rec #: [id number] Physician: LARRY MARTINES MD-SUR Financial #: [id number] Pt. Type: O Room/Bed: [facility] Admit/Disch: 08/24/19 09:42:00 - Institution: [facility] PreOp Case Times Entry 1 In Preop 08/24/19 10:06:00 Ready for Holding n/a Room Patient Ready for 08/24/19 10:30:00 Surgery Patient Out of Preop 08/24/19 10:30:00 Patient Out of n/a Holding Room [facility] PreOp Case Times Audit 08/24/19 10:30:23 Category Director: GEOVANNA Modifier: HOLMESTJ <+> 1 Patient Out of Preop <+> 1 Patient Ready for Surgery Finalized By: ANGE Green RN Document Signatures Signed By: ANGE Green RN 08/24/19 10:30 Electronically signed by [facility] Conversion Health Care Manager Cerner at 11/02/2022 10:00 AM CDT documented in this encounter Plan of Treatment Not on file documented as of this encounter Visit Diagnoses Not on filedocumented in this encounter
--- OUTSIDE RECORDS SUMMARY | 2025-02-26 10:15 | XMS_ITS | Encounter Summary ---
Author Organization [employer] ([place], [place]) Address [address] [place] [address] Care Team Providers Care Marine Pipefitter Helper Name Role Phone Unavailable Primary Care Provider Unavailabl e Encounter Details Date Type Department Care Team (Late st Contact Info) Description 01/19/2020 Transcribed Document [facility] [place] [address] [place] [address] ProviderLaury MD [address] [place] [address] Social History Tobacco Use Types [...] pharmacies and retail stores. ??? Eat bland, sydi-gp-hzvwgs foods in small amounts as you are [...] and water are not available, use hand street openings inspector. Make sure that everyone in your household washes their hands frequently. ??? Take dlfv-zog-aveucen and prescription medicines only as told by [...] and water are not available, use hand street openings inspector. Make sure that everyone in your household [...] 07/30/2016 Document Revised: 12/12/2018 Document Reviewed: 12/12/2018 WorldViz Interactive Patient Education ? 2020 [employer] Inc. Endocrinology Hypoglycemia Hypoglycemia occurs when the [...] instructions at home: General instructions ??? Take tqiw-ibm-eceahwf and prescription medicines only as told by [...] 07/04/2006 Document Revised: 12/26/2018 Document Reviewed: 08/06/2016 [employer]iz Interactive Patient Education ? 2020 [employer]. documented in this encounter Plan of Treatment Not on file documented as of this encounter Visit Diagnoses Not on filedocumented in this encounter
--- OUTSIDE RECORDS SUMMARY | 2025-02-26 10:15 | XMS_ITS | Encounter Summary ---
Author Organization [employer] ([place], [place], [place], [place]) Address [address] [place] [address] Care Team Providers Care Hiv Cts Specialist Name Role Phone Unavailable Primary Care Provider Unavailabl e Encounter Details Date Type Department Care Team (Late st Contact Info) Description 01/05/2020 Transcribed Document [facility] Family Medicine [address] [place] [address] ProviderLaury MD [address] [place] [address] Social History Tobacco Use Types Packs/Day [...] On: 01/05/2020 8:27 EDT by CRISTOBAL HANSEN, RN-Farm Machinery Mechanic Initial Assessment I Previously Documented Living Environment [...] have PCP Listed? : Yes CRISTOBAL HANSEN RN-Farm Machinery Mechanic - 01/05/2020 8:27 EDT Initial Assessment II [...] : Discharge transportation, Outpatient services CRISTOBAL HANSEN RN-Farm Machinery Mechanic - 01/05/2020 8:27 EDT Narrative Note Narrative Note : Patient underwent laparoscopic gastrectomy sleeve. Lives at home with family, iADLs. [place], no services needed..................sds CRISTOBAL HANSEN RN-Farm Machinery Mechanic - 01/05/2020 8:27 EDT documented in this encounter Plan of Treatment Not on file documented as of this encounter Visit Diagnoses Not on filedocumented in this encounter
--- OUTSIDE RECORDS SUMMARY | 2025-02-26 10:15 | XMS_ITS | Encounter Summary ---
Author Organization [facility] Address [address] [place] [address] Care Team Providers Care Imaging Technologist Name Role Phone Jaquan Conley MD Primary Care Provider + [phone] Encounter Details Date Type Department Care Team (Late st Contact Info) Description 11/10/2018 [facility] OTTR Encounter Historical OTTR [address] [place] [address] Yris Schwarz, RN CH-TRANSPLANT ADMINISTRATION Social History [...] . She stated she is going to [employer] because they told her she can continue [...] AM EDT SW received message from psych care team coordinator scheduler that the pt contacted her to cancel psych appt, as she has decided to pursue listing at [employer], instead of . Note to Coord. and Education Professional for awareness. * Progress Notes - Indira Márquez - 11/09/2018 4:12 PM EDT Mailed 11/24/18 [facility] eval appt schedule w/ map to pt. * Progress Notes - Daisy Gaming - 11/08/2018 8:09 AM EDT Per [facility] Psych Education Professional, pt has an appt with [facility] psych [...] made between 9 and 12 due to assistant child care teacher issues. Forwarding communication to . * Progress [...] However, pt is also considering going to [employer] since she was told they are less [...] @ 0830. Updated APM, SCM, OTTR, and [place]. Will call pt and mail updated ppw. [...] from pt asking for call back at [phone] to talk about a living donor. Called and spoke w/ pt. States she has several potential living donors and they have questions about the process, testing, and requirements. Informed pt that her potential living donors can call [phone] to discuss this and receive more info, [...] to pt and cc'd referring . USPS [phone] 81. documented in [...] on filedocumented in this encounter Care Teams Imaging Technologist Relationship Specialty Start Date End Date Jaquan Conley MD [address] [place], [place] [id number] PCP - General 11/28/20 documented as of this encounter
--- OUTSIDE RECORDS SUMMARY | 2025-02-26 10:15 | XMS_ITS | Encounter Summary ---
Author Organization [employer] ([place], [place], [place], [place]) Address [address] [place] [address] Care Team Providers Care Rock Room Worker Name Role Phone Unavailable Primary Care Provider Unavailabl e Encounter Details Date Type Department Care Team (Late st Contact Info) Description 12/28/[address] [facility] [place] [place] Family Medicine [address] [place] [address] ProviderLaury MD [address] [place] [address] Social History Tobacco Use Types Packs/Day [...] Policy Numbers : Insurance 1 Health Plan: [facility] Policy Number: [id number] Authorization Number: Insurance Primary Name : [facility] Policy Number: [id number] Authorization Status-Primary : Admit approved Reference Number-Primary : [id number] Authorization Number-Primary : [id number] Number of Days Authorized-Primary : 0 Day(s) [...]
--- OUTSIDE RECORDS SUMMARY | 2025-02-26 10:15 | XMS_ITS | Encounter Summary ---
Author Organization [employer] ([place], [place]) Address [address] [place] [address] Care Team Providers Care Hydrostatic Tester Name Role Phone Unavailable Primary Care Provider Unavailabl e Encounter Details Date Type Department Care Team (Late st Contact Info) Description 01/18/2020 Transcribed Document [facility] [place] [address] [place] [address] ProviderLaury MD [address] [place] [address] Social History Tobacco Use Types [...] Problems(Active) At risk for sleep apnea (IMO :54301653 ) Name of Problem: At risk for sleep apnea ; Recorder: SYSTEM, SYSTEM; Confirmation: Confirmed ; Classification: Medical ; Code: [id number] ; Last Updated: 08/24/2019 10:25 EST ; Life Cycle Date: 08/24/2019 ; Life Cycle Status: Active ; Vocabulary: IMO DM (diabetes mellitus) (SNOMED CT :323949851 ) Name of Problem: DM (diabetes mellitus) ; Recorder: ANGE Green RN; Confirmation: Confirmed ; Classification: Medical ; Code: 040026524 ; Contributor System: PowerChart ; Last Updated: 08/24/2019 10:17 EST ; Life Cycle Date: 08/24/2019 ; Life Cycle Status: Active ; Vocabulary: SNOMED CT HTN (hypertension) (SNOMED CT :8969300791 ) Name of Problem: HTN (hypertension) ; Recorder: ANGE Green RN; Confirmation: Confirmed ; Classification: Medical ; Code: 1528441529 ; Contributor System: PowerChart ; Last Updated: 08/24/2019 10:16 EST ; Life Cycle Date: 08/24/2019 ; Life Cycle Status: Active ; Vocabulary: SNOMED CT Hyperkalemia (SNOMED CT :32555527 ) Name of Problem: Hyperkalemia ; Recorder: Noelle Umanzor Rn; Confirmation: Confirmed ; Classification: Medical ; Code: 28526827 ; Contributor System: PowerChart ; Last Updated: 10/03/2019 10:52 EDT ; Life Cycle Date: 10/03/2019 ; Life Cycle Status: Active ; Vocabulary: SNOMED CT Hyperlipemia (SNOMED CT :21540074 ) Name of Problem: Hyperlipemia ; Recorder: ANGE Green RN; Confirmation: Confirmed ; Classification: Medical ; Code: 91021264 ; Contributor System: PowerChart ; Last Updated: 08/24/2019 10:17 EST ; Life Cycle Date: 08/24/2019 ; Life Cycle Status: Active ; Vocabulary: SNOMED CT Kidney disease (SNOMED CT :528364495 ) Name of Problem: Kidney disease ; Recorder: ANGE Green RN; Confirmation: Confirmed ; Classification: Medical ; Code: 710815065 ; Contributor System: PowerChart ; Last Updated: 08/24/2019 10:17 EST ; Life Cycle Date: 08/24/2019 ; Life Cycle Status: Active ; Vocabulary: SNOMED CT Neuropathy (SNOMED CT :1554620977 ) Name of Problem: Neuropathy ; Recorder: ANGE Green RN; Confirmation: Confirmed ; Classification: Medical ; Code: 1370240173 ; Contributor System: PowerChart ; Last Updated: 08/24/2019 10:18 EST ; Life Cycle Date: 08/24/2019 ; Life Cycle Status: Active ; Vocabulary: SNOMED CT Retinopathy (SNOMED CT :54793554 ) Name of Problem: Retinopathy ; Recorder: Noelle Umanzor Rn; Confirmation: Confirmed ; Classification: Medical ; Code: 90317588 ; Contributor System: PowerChart ; Last Updated: 10/03/2019 10:52 EDT ; Life Cycle Date: 10/03/2019 ; Life Cycle Status: Active ; Vocabulary: SNOMED CT Diagnoses(Active) Dehydration Date: 01/18/2020 ; Diagnosis Type: Reason For Visit ; Confirmation: Complaint of ; Clinical Dx: Dehydration ; Classification: Medical ; Clinical Service: Emergency medicine ; Code: PNED ; Probability: 0 ; Diagnosis Code: [id number] Vomiting Date: 01/18/2020 ; Diagnosis Type: Reason For Visit ; Confirmation: Complaint of ; Clinical Dx: Vomiting ; Classification: Medical ; Clinical Service: Emergency medicine ; Code: PNED ; Probability: 0 ; Diagnosis Code: [id number] ED Height and Weight Height Source : Stated Height Entry Format : [place] Height, Feet : 5 ft(Converted to: 152 cm, 60 Inch) Height, Inches : 5 Inch(Converted to: 0 ft 5 Inch, 12.70 cm) Clinical Height : 165.1 cm Weight Source, ED : Standing scale Weight Entry Format : [place] Weight, Pounds : 230.8 lb Clinical Dosing Weight : 104.91 kg Body Surface Area (BSA) : 2.1 m2 Body Mass Index : 38.5 kg/m2 (HI) [place] Body Weight (IBW) : 56.59 kg MARKIE PANG RN - 01/18/2020 20:31 EDT documented in this encounter Plan of Treatment Not on file documented as of this encounter Visit Diagnoses Not on filedocumented in this encounter
--- OUTSIDE RECORDS SUMMARY | 2025-02-26 10:15 | XMS_ITS | Encounter Summary ---
Author Organization [employer] ([place], [place], [place]) Address [address] [place] [address] Care Team Providers Care Reduction Plant Supervisor Name Role Phone Unavailable Primary Care Provider Unavailabl e Encounter Details Date Type Department Care Team (Late st Contact Info) Description 01/04/[address] [facility] Family Medicine [address] [place] [address] ProviderLaury MD [address] [place] [address] Social History Tobacco Use Types Packs/Day [...] Numbers : Insurance 1 Health Plan: [facility] Policy Number: [id number] Authorization Number: [id number] Insurance Primary Name : [facility] Policy Number: [id number] Authorization Status-Primary : Admit approved Reference Number-Primary : [id number] Authorization Number-Primary : [id number] Number of Days Authorized-Primary : 0 Day(s) [...]
--- OUTSIDE RECORDS SUMMARY | 2025-02-26 10:15 | XMS_ITS | Encounter Summary ---
Author Organization [facility] Address [address] [id number] Care Team Providers Care Ichthyologist Name Role Phone Maria A Soria APRN Primary Care Provider [phone] Encounter Details Date Type Department Care Team (Latest Contact Info) Description 02/22/2025 Travel Social History Tobacco Use Types Packs/Day [...] on filedocumented in this encounter Care Teams Ichthyologist Relationship Specialty Start Date End Date Maria A Soria APRN [address] [place] [address] PCP - General Family Medicine 02/15/23 documented as of this encounter
--- OUTSIDE RECORDS SUMMARY | 2025-02-26 10:15 | XMS_ITS | Encounter Summary ---
Author Organization [facility] Address [address] [id number] Care Team Providers Care Mold Sprayer Name Role Phone Maria A Soria PSYCHOLOGY PROFESSOR Primary Care Provider [phone] Encounter Details Date Type Department Care Team (Late st Contact Info) Description 02/08/2025 Results Follow-Up [facility] [address] [place] [phone] Marai A Soria, PSYCHOLOGY PROFESSOR [address] [place] [address] Social History Tobacco Use Types [...] on filedocumented in this encounter Care Teams Mold Sprayer Relationship Specialty Start Date End Date Maria A Soria, ANJU [address] [id number] PCP - General Family Medicine 02/15/23 documented as of this encounter
--- OUTSIDE RECORDS SUMMARY | 2025-02-26 10:15 | XMS_ITS | Encounter Summary ---
Author Organization [employer] ([place], [place]) Address [address] [place] [address] Care Team Providers Care Sugar Reprocess Operator Head Name Role Phone Unavailable Primary Care Provider Unavailabl e Encounter Details Date Type Department Care Team (Late st Contact Info) Description 09/28/2019 Transcribed Document [facility] [place] [address] [place] [address] ProviderLaury MD [address] [place] [address] Social History Tobacco Use Types Packs/Day [...] Policy Numbers : Insurance 1 Health Plan: [facility] Policy Number: [id number] Authorization Number: Insurance Primary Name : [facility] Policy Number: [id number] Authorization Status-Primary : Admit approved Reference Number-Primary : [id number] Authorization Number-Primary : [id number] Number of Days Authorized-Primary : 0 Day(s) [...]
--- OUTSIDE RECORDS SUMMARY | 2025-02-26 10:15 | XMS_ITS | Encounter Summary ---
Author Organization [employer] ([place], [place], [place]) Address [address] [place] [address] Care Team Providers Care Cupola Liner Helper Name Role Phone Unavailable Primary Care Provider Unavailabl e Encounter Details Date Type Department Care Team (Late st Contact Info) Description 01/04/2020 Transcribed Document [facility] [place] [address] [place] [address] ProviderLaury MD [address] [place] [address] Social History Tobacco Use Types [...]
--- OUTSIDE RECORDS SUMMARY | 2025-02-26 10:15 | XMS_ITS | Encounter Summary ---
Author Organization [employer] ([place], [place]) Address [address] [place] [address] Care Team Providers Care Credit Administrator Name Role Phone Unavailable Primary Care Provider Unavailabl e Encounter Details Date Type Department Care Team (Late st Contact Info) Description 01/19/2020 Transcribed Document [facility] [place] [address] [place] [address] ProviderLaury MD [address] [place] [address] Social History Tobacco Use Types Packs/Day Years [...] Physician Requested for Consult : LARRY MARTINES MD-[facility] Physician Covering for Consult : LARRY MARTINES MD-[facility] Date and Time Call Returned : 01/19/2020 9:04 EDT ASPEN CROWDER - 01/19/2020 9:04 EDT documented in this encounter Plan of Treatment Not on file documented as of this encounter Visit Diagnoses Not on filedocumented in this encounter
--- OUTSIDE RECORDS SUMMARY | 2025-02-26 10:15 | XMS_ITS | Encounter Summary ---
Author Organization [employer] ([place]) Address [address] [place] [address] Care Team Providers Care Wire Coating Machine Operator Name Role Phone Unavailable Primary Care Provider Unavailabl e Encounter Details Date Type Department Care Team (Late st Contact Info) Description 10/31/2018 Transcribed Document [facility] [place] [address] [place] [address] ProviderLaury MD [address] [place] [address] Social History Tobacco Use Types Packs/Day [...] Laury ProviderMD - 10/31/2018 1:17 AM CDT [facility] Emergency Department Depart Summary PERSON INFORMATION Name Crystal Archer Age 28 Years 1990 Sex Female Language PCP Marital Status Phone [phone] Visit Id Visit Reason Specialty Enc Type Emergency Med Service Referred by Track Group [facility] Discharge Tracking Id [id number] Checkout 10/30/2018 21:17:02 Checkin 10/30/2018 20:23:00 Acuity 4 - Non-urgent [facility] Dispo Type Arrival 10/30/2018 20:23:00 Reg Status LOS 000 00:54 Address: [address] [place] [address] [place] [place] [address] POWERFORMS PHYSICIAN NOTES VITALS INFORMATION Vital Sign Triage Temp 99 Temp Route Oral/Mouth Pulse Rate 92 Respiratory Rate 22 Blood Pressure 169/ 99 LOCATION INFORMATION Arrival Nurse Unit Room Bed 10/30/2018 20:23:00 [facility] ED Waitroom ([facility]) 10/30/2018 20:35:06 [facility] ED 9 10/30/2018 21:17:02 [facility] ED Checkout ([facility]) MEDICAL INFORMATION Allergy Info: No Known Allergies [...]
--- OUTSIDE RECORDS SUMMARY | 2025-02-26 10:15 | XMS_ITS | Encounter Summary ---
Author Organization [employer] ([place], [place]) Address [address] [place] [address] Care Team Providers Care Integration Analyst Name Role Phone Unavailable Primary Care Provider Unavailabl e Encounter Details Date Type Department Care Team (Late st Contact Info) Description 01/19/2020 Transcribed Document [facility] [place] [address] [place] [address] ProviderLaury MD [address] [place] [address] Social History Tobacco Use Types Packs/Day [...] On: 01/19/2020 8:59 EDT by CRISTOBAL HANSEN RN-Branch Maker Readmission Questionnaire Patient Status at Discharge, Previous Admission : Inpatient Did Patient Leave AMA Pre Admission : No Readmission : Unplanned Readmission Reason: : Patient/caregiver decided on their own to come to ED ED Visit Between Hospitalization : No DC Destination, Previous Admission : Discharge To Care Management: Home/Residential/Residential or Self Care - (01/19/20 08:56:00) If [...] Was Readm Preventable : No CRISTOBAL HANSEN RN-Branch Maker - 01/19/2020 8:59 EDT Electronically signed by [facility] Conversion Facility Attendant Cerner at 11/02/2022 9:56 AM CDT documented in this encounter Plan of Treatment Not on file documented as of this encounter Visit Diagnoses Not on filedocumented in this encounter
--- OUTSIDE RECORDS SUMMARY | 2025-02-26 10:15 | XMS_ITS | Encounter Summary ---
Author Organization [facility] Address [address] [id number] Care Team Providers Care Archivist Name Role Phone Maria A Soria APRN Primary Care Provider [phone]- [phone] Encounter Details Date Type Department Care Team [...] on filedocumented in this encounter Care Teams Archivist Relationship Specialty Start Date End Date Maria A Soria APRN [address] [place] [address] PCP - General Family Medicine 02/15/23 documented as of this encounter
--- OUTSIDE RECORDS SUMMARY | 2025-02-26 10:15 | XMS_ITS | Encounter Summary ---
Author Organization [employer] ([place], [place]) Address [address] [place] [address] Care Team Providers Care Electric Motor Winders Assembler Name Role Phone Unavailable Primary Care Provider Unavailabl e Encounter Details Date Type Department Care Team (Late st Contact Info) Description 11/19/2018 Transcribed Document [facility] [place] [address] [place] [address] ProviderLaury MD [address] [place] [address] Social History Tobacco Use Types Packs/Day [...] Laury ProviderMD - 11/19/2018 1:52 AM CDT [facility] Emergency Department Depart Summary PERSON INFORMATION Name Crystal Archer Age 28 Years 1990 Sex Female Language PCP Marital Status Phone [phone] Visit Id Visit Reason Specialty Enc Type Emergency Med Service [facility] Tracking Id [id number] Checkout 11/18/2018 21:52:54 Checkin 11/18/2018 20:06:00 Acuity 4 - Non-urgent [facility] Dispo Type Arrival 11/18/2018 20:06:00 Reg Status LOS 000 01:46 Address: [address] [place], [place] [address] [address] POWERFORMS PHYSICIAN NOTES VITALS INFORMATION Vital Sign Triage Temp 99.0 Temp Route Oral/Mouth Pulse Rate 107 Respiratory Rate 18 Blood Pressure 147/ 87 LOCATION INFORMATION Arrival Nurse Unit Room Bed 11/18/2018 20:06:00 [facility] ED Waitroom ([facility]) 11/18/2018 20:10:40 [facility] ED 8 11/18/2018 21:33:06 [facility] ED STA-3 11/18/2018 21:52:54 [facility] ED Checkout ([facility]) MEDICAL INFORMATION Allergy Info: No Known Allergies PATIENT EDUCATION INFORMATION Instructions: Urinary Tract Infection, Adult, Ixqc-kn-Tmky; Otitis Media, Adult, Hilj-rm-Coas Follow up: With: Address: When: Follow up with primary care provider Within 1-2 days With: Address: When: Return to Emergency Department Within As needed DIAGNOSIS documented in this encounter Plan of Treatment Not on file documented as of this encounter Visit Diagnoses Not on filedocumented in this encounter
--- OUTSIDE RECORDS SUMMARY | 2025-02-26 10:15 | XMS_ITS | Encounter Summary ---
Author Organization [employer] ([place]) Address [address] [place] [address] Care Team Providers Care Recruiter Coordinator Name Role Phone Unavailable Primary Care Provider Unavailabl e Encounter Details Date Type Department Care Team (Late st Contact Info) Description 10/31/2018 Transcribed Document [facility] [place] Family Medicine [address] [place] [address] ProviderLaury MD [address] [place] [address] Social History Tobacco Use Types Packs/Day [...] Laury ProviderMD - 10/31/2018 1:17 AM CDT [facility] ADDRESS [place], [place] [phone] Name:Crystal Archer Visit Date:10/30/2018 20:23:00 Emergency Department Care Providers: Physician: MEGHA MAN Physician: Our doctors and staff appreciate your choice of [facility] for your emergency medical care. Read these instructions carefully. Please call us if you have any questions about your medical problem. Emergency Department [phone] [facility] Emergency Department [phone] [facility] Emergency Department [phone] Patient Education Materials Gianni Crystal Jones has [...] 10/19/2011 Document Revised: 11/11/2016 Document Reviewed: 06/30/2015 [employer] Interactive Patient Education ? 2017 [employer] FOLLOW UP CARE Most conditions that [...] department to pick them up o # [phone] [facility] # [phone] o [facility] # [phone] ?? If you had cultures done and [...] quit. o National Network of Tobacco Cessation [id number]-YFUE-NOW o [employer] o [employer] [phone] o Sai/Manuel Mccray [phone] FINANCIAL INFORMATION ?? [facility] provides financial counseling to anyone who requests our services. ?? Emergency Physicians are independently contracted to provide your care. You will receive a bill for the care provided to you by the Physician and/or the Physician Roundhouse Firer/Fireman. This will be a separate bill from [...] as recommended Patient Signature / or Patient Systems Qa Analyst Provider Signature Date Date/Time 10/30/2018 21:17 [facility] [...] Dose Frequency amLODIPine 2.5 mg oral tablet [place] 5 mg-325 mg oral tablet Comment: This [...]
--- OUTSIDE RECORDS SUMMARY | 2025-02-26 10:15 | XMS_ITS | Encounter Summary ---
Author Organization [employer] ([place]) Address [address] [place] [address] Care Team Providers Care Case Manager Name Role Phone Unavailable Primary Care Provider Unavailabl e Encounter Details Date Type Department Care Team (Late st Contact Info) Description 01/05/2020 Transcribed Document [facility] [place] [address] [place] [address] ProviderLaury MD [address] [place] [address] Social History Tobacco Use Types [...] 01/05/2020 7:38 EDT Electronically signed by Interface, [facility] Conversion Treasury Management Sales Consultant Cerner at 11/02/2022 10:09 AM CDT documented in this encounter Plan of Treatment Not on file documented as of this encounter Visit Diagnoses Not on filedocumented in this encounter
--- OUTSIDE RECORDS SUMMARY | 2025-02-26 10:15 | XMS_ITS | Encounter Summary ---
Author Organization [employer] ([place] Address [address] [place] [address] Care Team Providers Care Long Haul Truck Driver Name Role Phone Unavailable Primary Care Provider Unavailabl e Encounter Details Date Type Department Care Team (Late st Contact Info) Description 01/18/2020 Transcribed Document [facility] [place] [address] [place] [address] ProviderLaury MD [address] [place] [address] Social History Tobacco Use Types [...] Communication Barrier : None Primary Language : Kosovan Any Spiritual/Cultural Needs or Requests : No [...] JASON FUENTES RN - 01/18/2020 21:30 EDT Electronically signed by Christopher Byrd Conversion Surface Room Shop Optician Cerner at 11/02/2022 10:12 AM CDT documented in this encounter Plan of Treatment Not on file documented as of this encounter Visit Diagnoses Not on filedocumented in this encounter
--- OUTSIDE RECORDS SUMMARY | 2025-02-26 10:15 | XMS_ITS | Encounter Summary ---
Author Organization [facility] Address [address] [place] [address] Care Team Providers Care Poultry Dressing Worker Name Role Phone Jaquan Conley MD Primary Care Provider + [phone] Reason for Visit * Reason Comments Med Refill Encounter Details Date Type Department Care Team (Late st Contact Info) Description 07/05/[address] 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
--- OUTSIDE RECORDS SUMMARY | 2025-02-26 10:15 | XMS_ITS | Encounter Summary ---
Author Organization [employer] ([place]) Address [address] [place] [address] Care Team Providers Care Shelter Case Manager Name Role Phone Unavailable Primary Care Provider Unavailabl e Encounter Details Date Type Department Care Team (Late st Contact Info) Description 01/19/2020 Transcribed Document [facility] [place] [address] [place] [address] ProviderLaury MD [address] [place] [address] Social History Tobacco Use Types Packs/Day [...] - 01/19/2020 16:16 EDT Electronically signed by [facility] Conversion Project Finance Analyst Cerner at 11/02/2022 9:56 AM CDT documented in this encounter Plan of Treatment Not on file documented as of this encounter Visit Diagnoses Not on filedocumented in this encounter
--- OUTSIDE RECORDS SUMMARY | 2025-02-26 10:15 | XMS_ITS | Encounter Summary ---
Author Organization [employer] ([place], [place], [place], [place]) Address [address] [place] [address] Care Team Providers Care Specialty Person Name Role Phone Unavailable Primary Care Provider Unavailabl e Encounter Details Date Type Department Care Team (Late st Contact Info) Description 01/04/2020 Transcribed Document [facility] [place] [address] [place] [address] ProviderLaury MD [address] [place] [address] Social History Tobacco Use Types [...]
--- OUTSIDE RECORDS SUMMARY | 2025-02-26 10:15 | XMS_ITS | Encounter Summary ---
Author Organization [employer] ([place], [place], [place], [place]) Address [address] [place] [address] Care Team Providers Care Wallpaperer Name Role Phone Unavailable Primary Care Provider Unavailabl e Encounter Details Date Type Department Care Team (Late st Contact Info) Description 01/07/2020 Transcribed Document [facility] [place] [address] [place] [address] ProviderLaury MD [address] [place] [address] Social History Tobacco Use Types Packs/Day [...] ProviderMD - 01/07/2020 11:01 AM CDT Patient: FREDDEI ARCHER Age: 29 Years Sex: Female : 1990 Admit Date 01/04/2020 04:47 Discharge Date 01/05/2020 14:12 Primary Care Provider ERIKA PERSAUD MD-INT Discharge Diagnosis Morbid obesity 01/05/2020 E66.01 ICD-10-CM Morbid obesity 01/04/2020 E66.01 ICD-10-CM Procedures SN - Proc - Procedure: Gastrectomy Sleeve Laparoscopic (01/04/20 09:17:21) Reason for Hospitalization is 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 Zofran 8mg oral every 12 hours as needed for nausea. Prilosec 20mg oral daily. Starts tomorrow. [2] Code Status No Code Status Order on Record Condition on Discharge Stable Consulting Physicians LARRY JAIMES MD-ANS Current Diet Order No qualifying data available. Patient Discharge Summary Orders Discharge Follow Up Instructions: followup next weekCall for [id number] Follow Up Instructions: call office on tuesday [...]
--- OUTSIDE RECORDS SUMMARY | 2025-02-26 10:15 | XMS_ITS | Encounter Summary ---
Author Organization [employer] ([place], [place], [place]) Address [address] [place] [address] Care Team Providers Care District Director Name Role Phone Unavailable Primary Care Provider Unavailabl e Encounter Details Date Type Department Care Team (Late st Contact Info) Description 10/31/2018 Transcribed Document [facility] [place] [address] [place] [address] ProviderLaury MD [address] [place] [address] Social History Tobacco Use Types Packs/Day [...] Complaint Primary Care Provider : Rema Ferreira, Arts And Crafts Instructor Accompanied By : Family/Spouse/SO Arrival Mode : [...] : No GI 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 : No Relief Mate Hx : No Heart Attack : No [...] Preferred Communication Mode : Verbal Languages : Guatemalan Child/Parent Domestic Concerns : None Threats of Suicide : No Jasen summer10/30/2018 20:29 EDT Height and Weight Height Source : Stated Height Entry Format : [place] Height, Inches : 65 Inch(Converted to: 5 ft 5 Inch, 165.10 cm) Clinical Height : 165.1 cm Weight Source : Stated Type of Weight Measurement Est : [place] Weight, est lb : 214 lb Estimated Clinical Dosing Weight : 97.27 kg [place] Body Weight : 57 kg Body Surface [...] ; Status: Processing ; Ordered As Mnemonic: [place] 5 mg-325 mg oral tablet ; Simple [...] EDT Electronically signed by Zuleyka Byrd Conversion Call Center Support Representative Cerner at 10/19/2022 11:23 AM CDT documented in this encounter Plan of Treatment Not on file documented as of this encounter Visit Diagnoses Not on filedocumented in this encounter
--- OUTSIDE RECORDS SUMMARY | 2025-02-26 10:15 | XMS_ITS | Encounter Summary ---
Author Organization [employer] ([place], [place], [place], [place]) Address [address] [place] [address] Care Team Providers Care Crutching Contractor Name Role Phone Unavailable Primary Care Provider Unavailabl e Encounter Details Date Type Department Care Team (Late st Contact Info) Description 08/24/2019 Transcribed Document [facility] [place] [address] [place] [address] ProviderLaury MD [address] [place] [address] Social History Tobacco Use Types Packs/Day [...] - Historical ProviderMD - 08/24/2019 11:11 AM ASSISTANT PROFESSOR OF SURGERY [facility] IntraOp Summary Primary Physician: LARRY MARTINES MD-SUR Finalized Date/Time: 08/24/19 12:55:12 Pt. Name: FREDDIE RUGGIERO FELICIA /Sex: 1990 Female Med Rec #: [id number] Physician: LARRY MARTINES MD-BRANDEE Financial #: [id number] Pt. Type: O Room/Bed: [facility] Admit/Disch: 08/24/19 09:42:00 - Institution: [facility] Endo - Case Attendance Entry 1 Entry 2 Entry 3 Case Attendee LARRY MARTINES Childress, TOBI J, RN ELLIOTT MOURA TECH MD-SUR Role Performed Surgeon/Proceduralist, Tractor Technician, First Scrub, First First Time In [...] 11:14:47 Entry 4 Case Attendee MARGRET MCCULLOUGH FUNERAL ATTENDANT Role Performed FUNERAL ATTENDANT/Nurse Worksite Wellness Practitioner Time In 08/24/19 11:09:00 Time Out 08/24/19 11:15:00 Procedure Esophagogastroduodenosco py, Gastric Biopsy Other Attendee Superficial Wound Closed By: Last Modified By: ANGE Green RN 08/24/19 11:14:47 [facility] Endo - Case Attendance Audit 08/24/19 11:14:47 Security Services Specialist: GEOVANNA Modifier: HOLMESTJ 1 <+> Time Out 1 <*> Procedure Gastric Biopsy 2 <+> Time Out 2 <*> Procedure Esophagogastroduodenoscopy, Gastric Biopsy 3 <+> Time Out 3 <*> Procedure Esophagogastroduodenoscopy, Gastric Biopsy 4 <+> Time Out 4 <*> Procedure Esophagogastroduodenoscopy, Gastric Biopsy 08/24/19 11:12:38 Security Services Specialist: HOLMESTJ Modifier: HOLMESTJ <+> 1 Procedure 2 <*> Procedure Esophagogastroduodenoscopy 3 <*> Procedure Esophagogastroduodenoscopy 4 <*> Procedure Esophagogastroduodenoscopy 08/24/19 11:11:44 Security Services Specialist: HOLMESTJ Modifier: HOLMESTJ 2 <+> Time In [...] Endo - Case Times Audit 08/24/19 11:13:59 Security Services Specialist: HOLMESTJ Modifier: HOLMESTJ <+> 1 Out Room Time <+> 1 Stop Time <+> 1 Stop Time 08/24/19 11:11:59 Security Services Specialist: HOLMESTJ Modifier: HOLMESTJ <+> 1 Start Time [facility] - Cultures and Spec Summary Entry 1 Cultrures and Specimens Specimen Ordered: Yes Last Modified By: ANGE Green RN 08/24/19 11:14:38 [facility] - Delays Entry 1 Delay Reason Other Duration 0 Minute(s) Comment NO DELAY Last Modified By: ANGE Green RN 08/24/19 11:09:48 [facility] - Delays Audit 08/24/19 11:09:48 Security Services Specialist: [email or web address] Modifier: HOLMESTJ <+> 1 Comment [facility] [...] Modified By: ANGE Green RN 08/24/19 11:09:51 [facility] Endo - Fire Risk Assessment Entry 1 Fire Info Surgical Site or 1- Yes Incision Above the Xyphoid Open O2 Source 1- Yes (Mask or Cannula) Available Ignition 1- Yes (ESU, Laser, Light Source) Fire Risk 3 Assessment Score Fire Score Fire Risk Yes Assessment Complete Fire Risk ANGE Green rose grader Verified By Fire Risk 08/24/19 11:10:00 Assessment Verified Date/Time Fire Risk High Risk Protocol Yes Implemented Standard Fire Yes Safety Precautions Followed Last Modified By: ANGE Green RN 08/24/19 11:10:04 [facility] Endo - General Case Night Custodian 1 Case Information OR Endo 01 [facility] Case Level 1 Room Verified Yes Wound Class II - Clean-Contaminated Specialty SN General Anesthesia Type MAC ASA Class 3 Diagnosis Preop Diagnosis GERD Postop Same As Preop No Postop Diagnosis normal EGD Last Modified By: ANGE Green RN 08/24/19 11:11:13 [facility] Endo - General Case Data Audit 08/24/19 11:14:21 Security Services Specialist: GEOVANNA Modifier: HOLMESTJ <+> 1 Postop Diagnosis [facility] Endo - Intraoperative Assessment Entry 1 Valid [...] Endo - Intraoperative Assessment Audit 08/24/19 12:55:06 Security Services Specialist: JOHNATHANESTJ Modifier: HOLMESTJ <+> 1 Prosthetic/Assistive Devices [facility] Endo - Intraoperative Equipment Entry 1 Type [...] Endo - Patient Positioning Audit 08/24/19 11:12:40 Security Services Specialist: GEOVANNA Modifier: HOLMESTJ 1 <*> Procedure Esophagogastroduodenoscopy [...] Endo - Sign Out Audit 08/24/19 11:14:13 Security Services Specialist: GEOVANNA Modifier: HOLMESTJ <+> 1 RN Sign Out Signature Date/Time <+> 1 Urinary Catheter Documented in IView [facility] Endo - Surgical Procedures Entry 1 Entry [...] ANGE Green RN 08/24/19 11:12:34 08/24/19 11:12:34 [facility] Endo - Surgical Procedures Audit 08/24/19 11:14:04 Security Services Specialist: GEOVANNA Modifier: HOLMMARCIA <+> 1 Stop <+> 2 Stop [facility] Endo - Time Out Entry 1 Procedure [...] Modified By: ANGE Green RN 08/24/19 11:12:41 [facility] Endo - Time Out Audit 08/24/19 11:12:41 Security Services Specialist: GEOVANNA Modifier: HOLMESTJ 1 <*> Procedure to be Performed Esophagogastroduodenoscopy 08/24/19 11:12:26 Security Services Specialist: JOHNATHANESTGiacomo Modifier: HOLMESTJ 1 <*> Beta Renae [...]
--- OUTSIDE RECORDS SUMMARY | 2025-02-26 10:15 | XMS_ITS | Encounter Summary ---
Author Organization [facility] Address [address] 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
--- OUTSIDE RECORDS SUMMARY | 2025-02-26 10:15 | XMS_ITS | Clinical Summary ---
Author Organization [facility] Address [facility], [address] [place] [address] Care Team Providers Care Rug Cleaning Supervisor Name Role Phone Jaquan Conley MD Primary Care Provider [phone] Social History Tobacco Use Types Packs/Day Years Used Date Smoking Tobacco: Never Assessed Comments Unknown Sex and Gender Information Value Date Recorded Sex Assigned at Not on file Legal Sex Female 11:22 AM EDT Gender Identity Not on file Sexual Orientation Not on file Plan of Treatment Not on file Insurance [facility] Care Teams Rug Cleaning Supervisor Relationship Specialty Start Date End Date Jaquan Conley MD [address] [place] [address] PCP - General Internal Medicine 01/09/21
--- OUTSIDE RECORDS SUMMARY | 2025-02-26 10:15 | XMS_ITS | Encounter Summary ---
Author Organization [facility] Address [address] [place] [address] Care Team Providers Care Flake Miller Wheat And Oats Name Role Phone Maria A Sroia APRN Primary Care Provider [phone] Reason for Visit * Reason Comments Med Refill Encounter Details Date Type Department Care Team (Late st Contact Info) Description 02/03/2025 Refill [facility] [address] [place] [address] Maria A Soria APRN [address] [place], [place] [id number] Social History Tobacco Use Types Packs/Day Years [...] on filedocumented in this encounter Care Teams Flake Miller Wheat And Oats Relationship Specialty Start Date End Date Maria A Soria APRN [address] [place] [phone] PCP - General Family Medicine 02/15/23 documented as of this encounter
--- OUTSIDE RECORDS SUMMARY | 2025-02-26 10:15 | XMS_ITS | Encounter Summary ---
Author Organization [employer] ([place], [place], [place], [place]) Address [address] [place] [address] Care Team Providers Care Ice Cream Maker Name Role Phone Unavailable Primary Care Provider Unavailabl e Encounter Details Date Type Department Care Team (Late st Contact Info) Description 01/04/2020 Transcribed Document [facility] [place] [address] [place] [address] ProviderLaury MD [address] [place] [address] Social History Tobacco Use Types Packs/Day [...]
--- OUTSIDE RECORDS SUMMARY | 2025-02-26 10:15 | XMS_ITS | Encounter Summary ---
Author Organization [employer] ([place], [place], [place], [place]) Address [address] [place] [address] Care Team Providers Care Electric Pile Driver Operator Name Role Phone Unavailable Primary Care Provider Unavailabl e Encounter Details Date Type Department Care Team (Late st Contact Info) Description 10/31/2018 Transcribed Document [facility] [place] Family [place] [address] [place] [address] ProviderLaury MD [address] [place] [address] Social History Tobacco Use Types Packs/Day [...] Laury ProviderMD - 10/31/2018 1:17 AM CDT [facility] ADDRESS [place], [place] [phone] Name:Crystal Archer Visit Date:10/30/2018 20:23:00 Emergency Department Care Providers: Physician: MEGHA MAN Physician: Our doctors and staff appreciate your choice of [facility] for your emergency medical care. Read these instructions carefully. Please call us if you have any questions about your medical problem. [facility] Emergency Department [phone] [facility] Emergency Department [phone] [facility] Emergency Department [phone] Patient Education Materials Gianni Crystal Jones has [...] 10/19/2011 Document Revised: 11/11/2016 Document Reviewed: 06/30/2015 [employer] Interactive Patient Education ? 2017 [employer] FOLLOW UP CARE Most conditions [...] pick them up o [facility] # [phone] o [facility] # [phone] o [facility] # [phone] ?? If you had cultures done and [...] quit. o National Network of Tobacco Cessation BIirrrqlf5-568-DSZX-NOW o [employer] o [place] [phone] o Sai/Manuel Mccray [phone] FINANCIAL INFORMATION ?? [facility] provides financial counseling to anyone who requests our services. ?? Emergency Physicians are independently contracted to provide your care. You will receive a bill for the care provided to you by the Physician and/or the Physician Heater Operator. This will be a separate bill [...] as recommended Patient Signature / or Patient Cinder Worker Provider Signature Date documented in this encounter Plan of Treatment Not on file documented as of this encounter Visit Diagnoses Not on filedocumented in this encounter
--- OUTSIDE RECORDS SUMMARY | 2025-02-26 10:15 | XMS_ITS | Encounter Summary ---
Author Organization [employer] ([place], [place], [place], [place]) Address [address] [place] [address] Care Team Providers Care Document Preparation Specialist Name Role Phone Unavailable Primary Care Provider Unavailabl e Encounter Details Date Type Department Care Team (Late st Contact Info) Description 01/19/2020 Transcribed Document [facility] [place] [address] [place] [address] ProviderLaury MD [address] [place] [address] Social History Tobacco Use Types Packs/Day [...] Laury ProviderMD - 01/19/2020 3:30 PM CDT [address] [address] FREDDIE ARCHER :1990 Visit Time:01/19/2020 [...] pharmacies and retail stores. ??? Eat bland, vpua-va-kczfsh foods in small amounts as you are [...] and water are not available, use hand mechanical piping designer. Make sure that everyone in your household washes their hands frequently. ??? Take ilrh-gxy-xffxagu and prescription medicines only as told by [...] and water are not available, use hand mechanical piping designer. Make sure that everyone in your household [...] 07/30/2016 Document Revised: 12/12/2018 Document Reviewed: 12/12/2018 [employer] Interactive Patient Education ?? 2020 [employer]. Hypoglycemia Hypoglycemia occurs when the level of [...] instructions at home: General instructions ??? Take eeul-bws-cifvaer and prescription medicines only as told by [...] 07/04/2006 Document Revised: 12/26/2018 Document Reviewed: 08/06/2016 [employer] Interactive Patient Education ?? 2020 [employer]. Emergency Awareness and Preventative Care STROKE is [...] Assistance with quitting is available by contacting 3-127-YAPV-NOW. This is a free resource providing counseling, [...] range between ( 1.0 and 7.0 ) [place] #: 0.73 K/uL -- Normal range between ( 0.24 and 0.82 ) [place]os #: 0.24 K/uL -- Normal range between ( 0.04 and 0.54 ) [place] %: 7.3 % -- Normal range between [...] ) Urine Bilirubin Dipstick: Negative Urine Specific [place]: 1.012 -- Normal range between ( 1.005 [...] was given the opportunity to ask questions. Patient/Artificial Flowers Supervisor Name: Patient/Artificial Flowers Supervisor Signature: Relationship to Patient: Clinician/Hospital Artificial Flowers Supervisor Signature: Date: documented in this encounter Plan of Treatment Not on file documented as of this encounter Visit Diagnoses Not on filedocumented in this encounter
--- OUTSIDE RECORDS SUMMARY | 2025-02-26 10:15 | XMS_ITS | Encounter Summary ---
Author Organization [facility] Address [address] [place] [address] Care Team Providers Care Epic Cadence Specialists Name Role Phone Jaquan Conley MD Primary Care Provider [phone] Encounter Details Date Type Department Care Team (Late st Contact Info) Description 10/18/2018 [facility] Historical OTTR [address] [place] [address] Yris Schwarz, RN CH-TRANSPLANT ADMINISTRATION Social History [...] EST Start eval with ; pt left META per [facility] records. Pt has been 5 times; has 2 children, one of which is in [place] with her latest . documented in this encounter Plan of Treatment Not on file documented as of this encounter Visit Diagnoses Not on filedocumented in this encounter Care Teams Epic Cadence Specialists Relationship Specialty Start Date End Date Jaquan Conley MD [address] [place] [address] PCP - General 11/28/20 documented as of this encounter
--- OUTSIDE RECORDS SUMMARY | 2025-02-26 10:15 | XMS_ITS | Clinical Summary ---
Author Organization [facility] Address [address] [place] [address] Care Team Providers Care Antique Furniture Repairer Name Role Phone Jaquan Conley MD Primary Care Provider + [phone] Allergies Active Allergy Reactions Criticality Noted Date [...] use of insulin ([facility]) To be used in insulin pump. MDD [...] [facility]-HIV Screening 1990 [facility]-Infant/Child/Adol SDOH Screenings 1989 [id number] Vaccine (#1) 1994 Diabetes: Dental Exam 1999 [facility]-Varicella Vaccines (1 of 2 - 13+ 2-dose series) 2002 [facility]- SDOH Screenings 2007 [facility]-Adult SDOH Screenings 2007 [facility]-Hepatitis B Vaccines (1 of 3 - 19+ 3-dose series) 2008 [facility]-Zoster Vaccines (1 of 2) 2008 HPV Vaccines (1 - Risk 3-dose SCDM series) 2016 [facility]-Pap Smear 10/29/2017 10/29/2014 [facility]-Cervical Cancer Screening [...] (6 to 49 Years) Completed 04/26/2024, 12/21/2018 [facility]-HIB Vaccines Aged Out No longer e [...] use of insulin ([facility]) CYTO DATA CONVERSION Routine 10/29/2014 12:00 AM EDT from Last 3 Months or Most Recently Relevant to Health Maintenance Results * (ABNORMAL) POCT glycosylated hemoglobin (Hb A1C) (05/23/2024 11:03 AM EST) POCT Hemoglobin A1C 5.8 <5.7% Non-Diabe tic % [employer] [facility] Kit Lot Number [id number] [facility] [employer] [facility] [facility] Kit Expiration Date 03/17/2026 [employer] [facility] Blood Venous blood specimen / Unknown 05/23/2024 11:03 AM EST Erica MENDEZ POINT OF CARE TEST EN TER/EDIT ORDERABLES Final Result [employer] [facility] [address] [place] [id number] * Cytology (10/29/2014 12:00 AM EDT) 10/29/2014 10/31/2014 12: 33 PM EDT Narrative SUNQUEST - 11/06/2014 11:15 AM EDT [facility] MR #: [id number] [facility] FREDDIE ARCHER [place], [place] [address] 1990 (Age: 24) FW Collect Date: 10/29/2014 00:00 Receipt Date: 10/31/2014 12:33 Page 1 DEPARTMENT OF PATHOLOGY AND LABORATORY MEDICINE CYTOPATHOLOGY REPORT Email: [email or web address] [phone] ATTENDING MD/Practitioner: John Celestin APRN Service: PAT Location: OUTS Reported: 11/06/2014 11:15 Collected: 10/29/2014 00:00 INTERPRETATION A. THIN PREP (CERVICAL/VAGINAL): NEGATIVE FOR INTRAEPITHELIAL LESION OR MALIGNANCY. SATISFACTORY FOR EVALUATION; ENDOCERVICAL/ TRANSFORMATION ZONE COMPONENT PRESENT. Slide scanned and imaged by [employer] ThinPrep Imaging System with manual review of [...] results is suggested (please call Microbiology at [phone] for results). CLINICAL INFORMATION: Menstrual History: Cyclic Date of Last Menstrual Period: 10/03/14 Other Clinical Conditions: If ASCUS and > 24 years of age, HPV/DNA testing requested. SPECIMEN DESCRIPTION: A: THIN PREP (CERVICAL/VAGINAL) THIN PREP PROCESS CELLULAR ENHANCEMENT ICD: F: A; RT IMAGE [id number] SNOMED CODES: A; [id number] In cases where a pathologist has signed out the report, the service has been rendered in part by a resident. The signing pathologist has performed and is responsible for the reported pathologic evaluation. us Historical Provider MD LAB PATHOLOGY ORDERABLES Final Result [facility] from Last 3 Months or Most Recently Relevant to Health Maintenance [place] [address] [place] [address] MEDICAID Care Teams Antique Furniture Repairer Relationship Specialty Start Date End Date Jaquan Conley MD [address] [place] [address] PCP - General 11/28/20
--- OUTSIDE RECORDS SUMMARY | 2025-02-26 10:15 | XMS_ITS | Encounter Summary ---
Author Organization [employer] ([place]) Address [address] [place] [address] Care Team Providers Care Immigration Associate Name Role Phone Unavailable Primary Care Provider Unavailabl e Encounter Details Date Type Department Care Team (Late st Contact Info) Description 01/19/2020 Transcribed Document [facility] Family Medicine [address] [place] [address] ProviderLaury MD [address] [place] [address] Social History Tobacco Use Types Packs/Day [...]
--- OUTSIDE RECORDS SUMMARY | 2025-02-26 10:15 | XMS_ITS | Encounter Summary ---
Author Organization [employer] ([place]) Address [address] [place] [address] Care Team Providers Care Underwear Cutter Name Role Phone Unavailable Primary Care Provider Unavailabl e Encounter Details Date Type Department Care Team (Late st Contact Info) Description 01/19/2020 Transcribed Document [facility] Family Medicine [address] [place] [address] ProviderLaury MD [address] [place] [address] Social History Tobacco Use Types [...] 01/19/2020 15:30 EDT Electronically signed by Rochel[facility] Conversion Training Executive Cerner at 11/02/2022 10:02 AM CDT documented in this encounter Plan of Treatment Not on file documented as of this encounter Visit Diagnoses Not on filedocumented in this encounter
--- OUTSIDE RECORDS SUMMARY | 2025-02-26 10:15 | XMS_ITS | Encounter Summary ---
Author Organization [employer] ([place], [place], [place], [place]) Address [address] [place] [address] Care Team Providers Care Molder Machine Name Role Phone Unavailable Primary Care Provider Unavailabl e Encounter Details Date Type Department Care Team (Late st Contact Info) Description 01/19/2020 Transcribed Document [facility] [place] Family [place] [facility] [place] [address] ProviderLaury MD [address] [place] [address] [id number] Social History Tobacco Use Types Packs/Day Years [...] documented in chart. Surgical history: section x2 ([id number]). Dilation and curettage ([id number]). Tubal ligation ([id number]). wisdom teeth. kidney biopsy. EGD. Stomach biopsy. Gastric sleeve ([id number]).. Family history: Not significant, No family history [...] EDT Height Source Stated Height Entry Format [place] Height/Length, [place] (ft) 5 ft Height/Length [place] 5 Inch CLINICALHEIGHT 165.1 cm [place] Body Weight 56.59 kg Weight Source, ED Standing scale Weight Entry Format Payette Weight [place] lb 230.8 lb CLINICALWEIGHT 104.91 kg Body [...] 39.0 % Lymph # 3.92 K/uL HI [place] % 7.3 % [place] # 0.73 K/uL Eos % 2.4 % Eos # 0.24 K/uL Baso % 0.4 % Baso # 0.04 K/uL Slide Review No IG# 0 x10(3)/uL IG% 0 % . Notes: Preliminary ReportNAME:FREDDIE ARCHER / SEX:1990 / FemaleMRN / ACC#:[id number] / [id number] ORDERING PHYSICIAN:Ordering Provider, UpdateEXAM REQUESTED:[id number]--WH ABDOMEN & PELVIS W/O CONTRAST [facility]RADIOLOGIST NAME:MD Ashely, [facility]IN[facility]:status post gastric sleeve surgery on [...] No rash, no cyanosis, capillary refill brisk RAISER HELPER: Awake alert oriented ??4, nonfocal exam Psych: Normal mood and affect. Notes: d/w pt labs/imaging results, d/d of sx, advised to admit pt to hospital, pt agreed for admission.. Impression and Plan Diagnosis Post-operative complication - Discharge, Medical Vomiting - Discharge, Medical Vomiting - Admitting, Medical Hypoglycemia - Discharge, Emergency medicine, Medical Post-operative complication - Discharge, Medical Calls-Consults - 01/19/2020 01:08:00 , ALRRY MARTINES MD-BRANDEE, phone call, recommends will admit [...]
--- OUTSIDE RECORDS SUMMARY | 2025-02-26 10:15 | XMS_ITS | Encounter Summary ---
Author Organization [employer] ([place], [place], [place], [place]) Address [address] [place] [address] Care Team Providers Care Weigher Bulker Name Role Phone Unavailable Primary Care Provider Unavailabl e Encounter Details Date Type Department Care Team (Late st Contact Info) Description 01/18/2020 Transcribed Document [facility] [place] [address] [place] [address] ProviderLaury MD [address] [place] [address] Social History Tobacco Use Types [...] Laury ProviderMD - 01/18/2020 8:28 PM CDT [place] Suicide Severity Rating Scale (C-SSRS) Entered On: 01/18/2020 21:29 EDT Performed On: 01/18/2020 21:29 EDT by JASON FUENTES RN [place] Suicide Severity Rating Scale (C-SSRS) CSSRS Past Month Wish to be : No CSSRS Past Month Suicidal Thoughts : No CSSRS Lifetime Suicide Behavior : No Suicide Severity Rating Score : 0 Suicide Severity Rating : No Additional Care Required at this time JASON FUENTES, HERNÁN - 01/18/2020 21:29 EDT Electronically signed by Zuleyka Byrd Conversion Kindergarten Teacher Assistant Cerner at 11/02/2022 10:10 AM CDT documented in this encounter Plan of Treatment Not on file documented as of this encounter Visit Diagnoses Not on filedocumented in this encounter
--- OUTSIDE RECORDS SUMMARY | 2025-02-26 10:16 | XMS_ITS | Clinical Summary ---
Author Organization [facility] Address [address] [place] [address] Care Team Providers Care Sap Project Manager Name Role Phone Yang Maria A Doyle APRN Primary Care Provider [phone] Allergies Active Allergy Reactions Criticality Noted Date [...] Take 1 tablet by mouth Daily. Active vitamin D (ERGOCALCIFEROL ) 1.25 MG (62938 UT) capsule capsule Take 1 capsule by mouth once a week 12 capsule 02/05/20 25 Active Vitamin D, Ergocalciferol, 23087 units capsule Take 1 capsule by mouth 1 (One) Time Per Week. 12 capsule 1 08/23/19 25 025 Discontinued azithromycin (Zithromax Z-Jose Daniel) 250 MG tabletIndicatio ns:Acute non-recurrent pansinusitis Take 2 tablets by mouth on day 1, then 1 tablet daily on days 2-5 6 tablet 09/14/19 25 025 Discontinued vitamin D (ERGOCALCIFEROL ) 1.25 MG (67743 UT) capsule capsule Take 1 capsule by mouth once a week 12 capsule 02/05/20 25 025 Discontinued cephalexin (KEFLEX) 500 MG capsuleIndicati ons:Dysuria Take 2 capsules by mouth 2 (Two) Times a Day for 5 days. 20 capsule 02/07/20 25 025 Active Problems Problem Noted Date Diagnosed Date Pre-operative clearance 02/22/2025 Assessment & Plan (02/25/2025 7:40 AM EDT): Patient with upcoming plans for uterine ablation due to heavy menstrual bleeding. Followed by Dr. Lynch at [facility]. In review of most recent labs and patient's current physical status she would be considered low risk to pursue with this intervention. No past history of difficulty with extubation or adverse reactions to anesthesia. Her glucose is very well-controlled, A1c 5.6% in office today Dysuria 02/11/2025 Assessment & Plan (02/11/2025 7:40 AM EDT): presents today for complaints of dysuria. Patient feels as though since undergoing renal transplant she is prone to urinary tract infections during her menstrual cycle. Patient states for the last 2 days she has experienced burning with urination as well as feelings of incomplete emptying. Contacted her transplant medical team at [facility] this morning with her symptoms set. She was advised to present to her primary care for urinalysis and urine culture and treatment with cephalexin. Patient denies any fever, chills, nausea or hematuria. UA not completed due to use of Azo which may skew results. at the advice of her transplant team will proceed with empiric therapy utilizing cephalexin while also sending urine for culture for further evaluation. Discussed postcoital hygiene as well as benefits of cranberry juice and cranberry pills. Will contact patient with urine culture results when available. Injury of left shoulder 10/03/2024 Assessment & Plan (10/04/2024 3:33 PM EDT): Valuated in [place] ED for the same approximately 1 month [...] available. I have also requested records from [facility] ED visit which supposedly includes some diagnostic imaging as well. Chronic fatigue 08/22/2024 Assessment & Plan (08/22/2024 [...] Renal transplant recipient 06/07/2024 Assessment & Plan (02/25/2025 7:40 AM EDT): On December 02, 2023 she received a call from the [facility] that they had a match [...] daily. Continues to be followed closely by [facility] transplant as well as Dr. Stevens at [facility]. Assessment & Plan (08/22/2024 11:22 AM EST): On December 02, 2023 she received a call from the [facility] that they had a match [...] daily. Continues to be followed closely by [facility] transplant as well as Dr. Stevens at [facility] locally. Assessment & Plan (06/07/2024 12:35 PM EST): Patient last evaluated in our office a little over 1 year ago in April 2023. At that time she was suffering from end-stage renal disease due to diabetic nephropathy, performing home peritoneal dialysis nightly. On December 02, 2023 she received a call from the [facility] that they had a match [...] daily. Continues to be followed closely by [facility] transplant as well as Dr. Stevens at [facility] locally. Annual physical exam 03/15/2023 Cervical cancer screening 03/15/2023 Type 2 diabetes mellitus wit h hyperglycemia, with long-term current use of insulin 02/15/2023 Assessment & Plan (02/25/2025 7:41 AM EDT): Patient followed by endocrinology at the [facility]. Patient currently utilizes insulin pump and GCS with excellent glucose control, A1c 5.6% in office today. Her regimen currently includes NovoLog as titrated with her insulin pump. Also utilizes lispro sliding scale before meals if needed. Assessment & Plan (08/22/2024 11:23 AM EST): [...] by Dr. Stevens at [facility] [place]. Working towards renal transplant with [facility].. Assessment & Plan (03/15/2023 5:10 PM EDT): Etiology of end-stage renal disease appears to be hypertensive nephrosclerosis as well as diabetic nephropathy. She was a noncompliant type I diabetic for many years, diagnosed at the age of 12. She is currently performing home peritoneal dialysis nocturnally 6 days/week. Working towards renal transplant with [facility]. Followed by [facility] [place], Dr. Stevens. Assessment & Plan (02/15/2023 3:01 PM EDT): Etiology of end-stage renal disease appears to be hypertensive nephrosclerosis as well as diabetic Nephropathy. She was a noncompliant type I diabetic for many years, diagnosed at the age of 12. She is currently performing home peritoneal dialysis nocturnally 6 days/week. Working towards renal transplant with [facility]. To pursue transplant services at [facility] as well but finances are making that impossible at the current time. History of bariatric surgery 02/15/2023 Assessment & Plan (02/25/2025 7:39 AM EDT): Patient underwent sleeve gastrectomy in December 2019 with maximum weight of 398 pounds reported. During her last visit a little over a year ago she was noted to be 157 pounds. Patient states immediately after renal transplant she liberalized her diet causing a 20 pound weight gain. Subsequently she was given GLP-1 therapy for quite some time by her courtroom deputy. Patient has not been on GLP-1 for quite some time, but has continued with weight loss due to stress. Today she weighs in 121 pounds. 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 Assessment & Plan (06/07/2024 12:36 PM EST): [...] 07/21/2018 Essential hypertension 07/21/2018 Assessment & Plan (02/25/2025 7:38 AM EDT): Blood pressure very well-controlled without antihypertensives at this time, 106/74. Patient was able to discontinue antihypertensives after significant weight loss status post bariatric surgery. Assessment & Plan (08/22/2024 11:24 AM EST): [...] lower leg Hyperlipidemia 12/30/2015 Assessment & Plan (02/25/2025 7:39 AM EDT): Patient's lipid well-controlled with atorvastatin 40 mg daily Assessment & Plan (06/07/2024 12:35 PM EST): [...] her lipids Depression 12/30/2015 Assessment & Plan (02/25/2025 7:37 AM EDT): Patient has longstanding issues with depression due to an unfortunate childhood with alcohol, drug addicted mother. She also has past history of drug abuse herself. She has utilized antidepressants in the past, having no benefit from initiation of bupropion, adverse effects from fluoxetine and venlafaxine. Patient states she is currently experiencing mood stability without antidepressants. Assessment & Plan (06/07/2024 12:38 PM EST): [...] of 107. She reports she saw her recreation activities coordinator who wanted to increase her blood pressure medications but she refused stating she knew she stopped the medications her blood pressure would return to normal. She is now off both BuSpar and venlafaxine with blood pressure 110/74 in office today. Patient feels her mood is stable currently without medications due to some decrease stressors in the home. Her [id number] with whom she help caregive from [place]'s disease, decreasing some of her personal obligations. [...] Problem Noted Date Diagnosed Date Resolved Date Acute recurrent pansinusitis 09/19/2024 02/25/2025 Assessment & Plan (09/30/2024 1:00 PM EDT): Patient last seen in our office approximately 1 week ago with these complaints. 1 week prior to that presentation she was evaluated at [facility] with respiratory issues, tested negative for COVID [...] sneezing. She was a originally evaluated at [facility] over 1 week ago with respiratory issues, tested negative for COVID and flu. She is tested negative again in office today. Likely secondary bacterial sinusitis from prolonged course of congestion. Patient advised to continue use of daily antihistamine and Flonase. Will treat potential pathogens with azithromycin Z-Jose Daniel. Patient will advise if no improved Acute cystitis with hematuria 03/15/2023 02/25/2025 Assessment & Plan (11/27/2024 12:41 PM EDT): [...] E. coli infection. Urine culture obtained today Diarrhea 03/15/2023 06/07/2024 Assessment & Plan (04/25/2023 [...] parasites and C. difficile toxin. 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 02/15/2023 06/07/2024 Assessment [...] hyperkalemia 07/21/2018 Acute renal failure 06/13/2018 06/07/20 24 Type 2 diabetes mellitus with hyperglycemia 12/30/2015 02/15/2023 Encounters Date Type Department Care Team Description 02/22/2025 10:30 AM EDT Office Visit [facility] [address] [place] [address] [place] [address] Maria A Soira, THREAD CUTTER TENDER Type 2 diabetes mellitus with hyperglycemia, with long-term current use of insulin (Primary Dx); Essential hypertension; History of bariatric surgery; History of drug abuse; Mixed hyperlipidemia; Persistent depressive disorder; Pre-operative clearance; Renal transplant recipient 02/22/2025 Travel 02/08/2025 Results Follow-Up [facility] [address] [place] [address] [place] [address] Maria A Soria, ANJU 02/06/2025 10:45 AM EDT Office Visit [facility] [address] [place] [address] Maria A Soria, ANJU Dysuria (Primary Dx) 02/06/2025 Travel 02/04/2025 Refill [facility] [address] [place] [address] [address] [place], [place] [address] Maria A Soria, THREAD CUTTER TENDER 02/03/2025 Refill [facility] [address] [place] [address] [place] [address] Maria A Soria, THREAD CUTTER TENDER 11/29/2024 Telephone [facility] [address] [place] [address] [address] [place], [place] [address] Maria A Soria, THREAD CUTTER TENDER 11/27/2024 Telephone [facility] [address] [place] [address] [place] [address] Maria A Soria, THREAD CUTTER TENDER from Last 3 Months Immunizations Immunization Administration [...] Mass Index 20.77 02/22/2025 10:16 AM EDT Plan of Treatment Health Maintenance Due Date Last Done Comments Annual Gynecologic Pelvic and Breast Exam 1990 DIABETIC FOOT EXAM 03/15/2024 03/15/2023, 0 03/15/2023, 03/15/2023, Additional history exists DIABETIC EYE EXAM 02/12/2025 02/13/2024 (Patient-Reported (Performed Externally)), 12/30/2022 INFLUENZA VACCINE 04/17/2025 04/26/2024, , 04/07/2021, Additional history exists COVID-19 Vaccine (#1) 05/29/2025 Postpo adilson from 1994 (Patient Refused) ANNUAL PHYSICAL 06/07/2025 06/07/2024, 03/15/2023 Hepatitis B (1 of 3 - 19+ 3-dose series) 08/05/2025 Postponed from 2008 (Patient Refused) HEMOGLOBIN A1C 08/25/2025 02/22/2025, 02/0 11/2024, 05/23/2024, Additional history exists LIPID PANEL 12/31/2025 12/31/2024, 02/0 11/2024, 03/05/2024, Additional history exists PAP SMEAR 02/12/2028 02/11/2025 (Patient-Reported (Performed Externally)) TDAP/TD VACCINES (3 - Td or Tdap) 09/28/2033 09/29/2023, 02/15/2018 HEPATITIS C SCREENING Completed 05/19/2023 , 05/19/2023, 07/23/2019, Additional history exists Pneumococcal Vaccine 0-49 Completed 04/26/2024, 12/2018 Procedures Procedure Name Priority Date/Time Associated Diagnosis Comments POCT GLYCOSYLATED HEMOGLOBIN (HGB A1C) Routine 02/22/2025 10:26 AM EDT Type 2 diabetes mellitus with hyperglycemia, with long-term current use of insulin URINE CULTURE Routine 02/06/2025 10:33 AM EDT Dysuria LIPID PANEL Routine 08/22/2024 9:48 AM EST Chronic fatigue HEPATITIS C ANTIBODY Routine 07/23/2019 10:03 AM EST Chronic kidney disease, stage V from Last 3 Months or Most Recently Relevant to Health Maintenance Results * POC Glycosylated Hemoglobin (Hb A1C) (02/22/2025 10:26 AM EDT) Hemoglobin A1C 5.6 4.5 - 5.7 % [facility] Lot Number [id number] [facility] Expiration Date [facility] Blood 02/22/2025 10:2 6 AM EDT Maria A Soria APRN POINT OF CARE TEST ORDERABL ES Final Result [facility]
[address] [id number], [place] [phone] * Urine Culture - Urine, Urine, Clean Catch (02/06/2025 10:33 AM EDT) [facility] Urine Culture Final report [facility] Result 1 No growth [facility] Urine Urine specimen obtained by clean catch procedure / Unknown 02/06/2025 10:33 AM EDT 02/06/2025 Comment:Urine Release to [facility] i Narrative [facility] ([facility]) - 02/08/2025 6:06 AM EDT Performed at: 01 - [address] [id number] Impress Associate: Jacob Whaley PhD, Phone: [phone] Maria A Soria APRN MICROBIOLOGY - GENERAL ORDE RABLES Final Result Performing Organization Address City/[facility]/ZIP Co de Phone Number [facility] ([facility]UL[facility]) [address] [place] [address], [place] [phone] [facility] [address] [place] [address], [place] [phone] * Lipid Panel (08/22/2024 9:48 AM EST) [facility] Total Cholesterol 117 100 - 199 mg/dL [facility] Triglycerides 140 0 - 149 mg/dL [facility] HDL Cholesterol 40 >39 mg/dL [facility] VLDL Cholesterol Christian 24 5 - 40 mg/dL [facility] LDL Chol Calc (NIH) 53 0 - 99 mg/dL [facility] Blood Structure of left upper limb / Unknown 08/22/2024 9:48 AM EST 08/22/2024 Comment:Blood Release to bhavin Alberts [facility] (AMBULATORY) - 08/23/2024 9:07 AM EST [facility]formed at: [facility] - [facility] [address] [place], [place] [id number] Impress Associate: Jacob Whaley PhD, Phone: [phone] Maria A Soria APRN LAB BLOOD ORDERABLES Final Result Performing Organization Address City/[facility]/ZIP Co de Phone Number [facility] (AMBULATORY) [address] [place] [address], [facility] [address] [place] [address], * Hepatitis C Antibody (07/23/2019 10:03 AM EST) Hepatitis C Ab Non-Reacti ve Non-Reacti ve 07/23/2019 6:31 PM EST [facility] Blood Venipuncture / Unknown 07/23/2019 10:03 AM EST 07/23/2019 10:38 AM EST Mukul Stevens MD LAB BLOOD ORDERABLES F inal Result [facility]
[address] [place] [address], from Last 3 Months or Most Recently [...] pulse or is breathing): Full Care Teams Sap Project Manager Relationship Specialty Start Date End Date Maria A Soria APRN [address] [place], [place] [id number] PCP - General Family Medicine 02/15/23
--- OUTSIDE RECORDS SUMMARY | 2025-02-26 10:16 | XMS_ITS | Encounter Summary ---
Author Organization [employer] ([place], [place], [place], [place]) Address [address] [place] [address] Care Team Providers Care Precision Lens Polisher Name Role Phone Unavailable Primary Care Provider Unavailabl e Encounter Details Date Type Department Care Team (Late st Contact Info) Description 01/08/[address] [facility] [place] Family Medicine [address] [place] [address] ProviderLaury MD [address] [place] [address] Social History Tobacco Use Types Packs/Day [...] Laury ProviderMD - 01/08/2019 12:31 AM CDT [facility] Emergency Department Depart Summary PERSON INFORMATION Name Crystal Archer Age 28 Years 1990 Sex Female Language PCP Marital Status Phone [phone] Visit Id Visit Reason Specialty Enc Type Emergency Med Service Referred by Track Group [facility] [place] Discharge Tracking Id [id number] Checkout 01/07/2019 20:31:56 Checkin 01/07/2019 18:52:00 Acuity 3 - Urgent BBK Dispo Type Arrival 01/07/2019 18:52:00 Reg Status LOS 000 01:39 Address: [address] [place] [address] [place] [address] POWERFORMS PHYSICIAN NOTES VITALS INFORMATION Vital Sign Triage Temp 99.4 Temp Route Pulse Rate 96 Respiratory Rate 16 Blood Pressure 137/ 85 LOCATION INFORMATION Arrival Nurse Unit Room Bed 01/07/2019 18:52:00 [facility] ED Waitroom (K) 01/07/2019 20:31:56 [facility] ED Checkout (K) MEDICAL INFORMATION Allergy Info: NSAIDs PATIENT EDUCATION INFORMATION Instructions: Follow up: DIAGNOSIS documented in this encounter Plan of Treatment Not on file documented as of this encounter Visit Diagnoses Not on filedocumented in this encounter
--- OUTSIDE RECORDS SUMMARY | 2025-02-26 10:16 | XMS_ITS | Referral Summary ---
Author Organization [employer] ([place], [place], [place], [place]) Address [address] [place] [address] Care Team Providers Care Test Automation Architect Name Role Phone Unavailable Primary Care [...] Date Blaine rded Speak language other than Bulgarian at home Not on file 07/30/2023 Want [...] file Insurance Lb MONTALVO MARTIN [place] [id number] [facility] Advance Directives For more information, please contact: [phone] * Full Code (Latest Code Status on File) Date Activated Date Inactivated Comments 09/23/2022 6:27 AM 09/23/2022 11:31 AM
--- OUTSIDE RECORDS SUMMARY | 2025-02-26 10:16 | XMS_ITS | Encounter Summary ---
Author Organization [employer] ([place], [place], [place], [place]) Address [address] [place] [address] Care Team Providers Care Movie Star Name Role Phone Unavailable Primary Care Provider Unavailabl e Encounter Details Date Type Department Care Team (Late st Contact Info) Description 09/07/2018 Transcribed Document [facility] Family Medicine [address] [place] [address] ProviderLaury MD [address] [place] [address] Social History Tobacco Use Types Packs/Day [...] - Laury ProviderMD - 09/07/2018 9:31 PM USER EXPERIENCE ARCHITECT [facility] ADDRESS [place], [place] [phone] Name:Crystal Archer Visit Date:09/07/2018 15:20:00 Emergency Department Care Providers: Physician: MEGHA MAN Physician: Our doctors and staff appreciate your choice of [facility] for your emergency medical care. Read these instructions carefully. Please call us if you have any questions about your medical problem. [facility] Emergency Department [phone] [facility] Emergency Department [phone] [facility] Emergency Department [phone] Patient Education Materials Gianni Crystal Jones has [...] 12/15/2006 Document Revised: 03/06/2017 Document Reviewed: 12/11/2014 [employer] Interactive Patient Education ? 2017 [employer] FOLLOW UP CARE Most conditions that [...] x-ray department to pick them up o [facility] # [phone] o [facility] # [phone] o [facility] # [phone] ?? If you had cultures done and [...] quit. o National Network of Tobacco Cessation [id number]-XJCI-NOW o [employer] o [place] [employer] [phone] o Sai/Manuel Mccray [phone] FINANCIAL INFORMATION ?? [facility] provides financial counseling to anyone who requests our services. ?? Emergency Physicians are independently contracted to provide your care. You will receive a bill for the care provided to you by the Physician and/or the Physician Airport Shuttle Driver. This will be a separate bill from [...] as recommended Patient Signature / or Patient Electronic Technician Provider Signature Date documented in this encounter Plan of Treatment Not on file documented as of this encounter Visit Diagnoses Not on filedocumented in this encounter
--- OUTSIDE RECORDS SUMMARY | 2025-02-26 10:16 | XMS_ITS | Encounter Summary ---
Author Organization [employer] ([place], [place], [place], [place]) Address [address] [place] [address] Care Team Providers Care Dag Coater Name Role Phone Unavailable Primary Care Provider Unavailabl e Encounter Details Date Type Department Care Team (Late st Contact Info) Description 09/07/2018 Transcribed Document [facility] [place] [address] [place] [address] ProviderLaury MD [address] [place] [address] Social History Tobacco Use Types Packs/Day [...] - Laury ProviderMD - 09/07/2018 9:31 PM JOURNEYMAN POWERHOUSE OPERATOR [facility] Emergency Department Depart Summary PERSON INFORMATION Name Crystal Archer Age 28 Years 1990 Sex Female Language PCP Marital Status Phone [phone] Visit Id Visit Reason Specialty Enc Type Emergency Med Service Referred by Track Group GM [place] Discharge Tracking Id [id number] Checkout 09/07/2018 16:31:16 Checkin 09/07/2018 15:20:00 Acuity 4 - Non-urgent [facility] Dispo Type Arrival 09/07/2018 15:20:00 Reg Status LOS 000 01:11 Address: [address] [place] [address] [place] [address] POWERFORMS PHYSICIAN NOTES VITALS INFORMATION Vital Sign Triage Temp 99.1 Temp Route Oral/Mouth Pulse Rate 61 Respiratory Rate 20 Blood Pressure 145/ 91 LOCATION INFORMATION Arrival Nurse Unit Room Bed 09/07/2018 15:20:00 [facility] ED Waitroom ([facility]) 09/07/2018 15:34:51 [facility] ED 9 09/07/2018 16:31:16 [facility] ED Checkout ([facility]) MEDICAL INFORMATION Allergy Info: No Known Allergies PATIENT EDUCATION INFORMATION Instructions: Ulnar Fracture Follow up: With: Address: When: Follow up with specialist Within 1-2 days Comments: call for follow up appointment with orthopedist to replace cast. With: Address: When: Return to Emergency Department Within As needed DIAGNOSIS Electronically signed by Zuleyka Byrd Conversion Assistant Professor Nurse Education Cerner at 10/19/2022 11:22 AM CDT documented in this encounter Plan of Treatment Not on file documented as of this encounter Visit Diagnoses Not on filedocumented in this encounter
--- OUTSIDE RECORDS SUMMARY | 2025-02-26 10:16 | XMS_ITS | Clinical Summary ---
Author Organization [facility] Address [address] [facility] [address] [place] [address] Care Team Providers Care Traffic I Manager Name Role Phone Jaquan Conley MD Primary Care Provider [phone] Social History Tobacco Use Types Packs/Day Years [...] TYPE. U CleanCatch 12/31/2024 11:47 AM EDT [facility] Urinalysis SS URINE COLOR YELLOW 12/31/2024 12:03 PM EDT [facility] Urinalysis SS URINE APPEARANCE SL CLOUDY 12/31/2024 12:03 PM EDT [facility] Urinalysis SS URINE SPECIFIC GRAVITY 1.021 1.001 - 1.030 12/31/2024 12:03 PM EDT [facility] Urinalysis SS URINE PH DIPSTICK 6.0 12/31/2024 12:03 PM EDT [facility] Urinalysis SS URINE LEUKOCYTE ESTERASE 500 Maty/uL Maty/ul 12/31/2024 12:03 PM EDT [facility] Urinalysis SS URINE NITRITE 2+(A) Negative 12/31/2024 12:03 PM EDT [facility] Urinalysis SS URINE PROTEIN DIPSTICK 10 mg/dL mg/dL 12/31/2024 12:03 PM EDT [facility] Urinalysis SS URINE GLUCOSE DIPSTICK NORMAL mg/dL 12/31/2024 12:03 PM EDT [facility] Urinalysis SS URINE KETONES DIPSTICK NEGATIVE Negative mg/dL 12/31/2024 12:03 PM EDT [facility] Urinalysis SS URINE UROBILINOGEN DIPSTICK NORMAL Normal [...] UR MUCOUS PRESENT 12/31/2024 12:03 PM EDT [facility] Urinalysis SS UR SQUAMOUS EPITHELIAL CELLS 0-4 None /HPF 12/31/2024 12:03 PM EDT [facility] Urinalysis SS Urine 12/31/2024 9:28 AM EDT 12/31/2024 11:47 AM EDT [facility] LAB - 12/31/2024 12:05 [place] [address] Nikki Jeffery GROUND WOOD SUPERVISOR LAB URINE ORDERABLES Final Re sult Performing Organization Address City/State/[facility] [place] [address], [facility] Urinalysis Pathology Department [address] [place] [address] * CMV PCR Quant [[id number]] (12/31/2024 9:28 AM EDT) CMV DNA PCR NOT DETECTED Not Detected 7:49 AM EDT [facility] Molecular SS Blood 12/31/2024 9:28 AM EDT 12/31/2024 10:49 AM EDT [facility] LAB - 01/01/2025 7:49 AM EDT Performed by [facility], [address] [place] [address] [facility] LAB BLOOD ORDERABLES Final Re sult Performing Organization Address [facility] de Phone Number [facility] [address] [place] [address], [facility] Molecular SS Pathology Department [address] [place] [address] * BK Virus PCR Blood (12/31/2024 9:28 AM EDT) Pathologist [facility] BK VIRUS PCR QUAL, BLOOD NOT DETECTED Not Detected 01/01/2025 7:58 AM EDT [facility] Molecular SS Comment:The linear range of this test is 21.5 - 100,000,000 IU/mL. Any result of <21.5 or >100,000,000 indicates a true value outside of the range that can be accurately determined using our current methodology. Blood 12/31/2024 9:28 AM EDT 12/31/2024 10:49 AM EDT [facility] LAB - 01/01/2025 7:58 AM EDT Performed by [facility], [address] [place] [address] [facility] LAB BLOOD ORDERABLES Final Re sult Performing Organization Address [facility] de Phone Number [facility] [address] [place] [address], [facility] Molecular Pathology Department [address] [place] [address] * (ABNORMAL) AUTODIFF (12/31/2024 9:28 AM EDT) [...] - 3.0 % 12/31/2024 10:10 AM EDT [facility] Heme Coag UA SS NEUT # 3.4 1.5 - 7.1 x10(3)/ul 12/31/2024 10:10 AM EDT [facility] Heme Coag UA SS LYMPH # 0.7(L) 1.0 - 3.5 x10(3)/ul 12/31/2024 10:10 AM EDT [facility] Heme Coag UA SS MONO # 0.5 0.0 - 1.0 x10(3)/ul 12/31/2024 10:10 AM EDT [facility] Heme Coag UA SS EOS # 0.0 0.0 - 0.7 x10(3)/ul 12/31/2024 10:10 AM EDT [facility] Heme Coag UA SS BASO # 0.0 0.0 - 0.3 x10(3)/ul 12/31/2024 10:10 AM EDT [facility] Heme Coag UA SS Blood 12/31/2024 9:28 AM EDT 12/31/2024 9:53 AM EDT [facility] LAB - 12/31/2024 10:10 AM EDT Ordered by Discern Expert. Performed by [facility], [address] [place] [id number] Nikki Jeffery APRN LAB BLOOD ORDERABLES Final Re sult Performing Organization Address City/State/[facility] Co de Phone Number [facility] [address] [place] [address], [facility] Heme Coag UA SS Pathology Department [address] [place] [address] * (ABNORMAL) Tacrolimus level (12/31/2024 9:28 AM EDT) Tacrolimus Lvl 4.7(L) 5.0 - 20.0 ng/mL 12/31/2024 2:04 PM EDT [facility] Special Chemistry SS Comment: This test was performed, developed and its performance characteristics determined by at [facility], [address] [place] [address], [id number], [place], using a Laboratory Developed Test Tandem Mass Spectrometry LC/MS/MS. It has not been cleared or approved by the [place] Food and Drug Administration. Validation data is available upon request. Blood 12/31/2024 9:28 AM EDT 12/31/2024 9:53 AM EDT [facility] LAB - 12/31/2024 2:04 PM EDT Performed by [facility], [address] [place] [address] Nikki Jeffery GROUND WOOD SUPERVISOR LAB BLOOD ORDERABLES Final Re sult [facility] [address] [place] [address], [facility] Special Chemistry Pathology Department [address] [place] [address] * (ABNORMAL) CBC With Differential (12/31/2024 9:28 AM EDT) WBC 4.6 4.0 - 10.8 x10(3)/ul 12/31/2024 10:10 AM EDT L Heme Coag UA SS RBC 3.64(L) 3.77 - 5.16 x10(6)/ul 12/31/2024 10:10 AM EDT [facility] Heme Coag UA SS HGB 10.6(L) 12.0 - 16.0 Gram/dL 12/31/2024 10:10 AM EDT L Heme Coag UA SS Hematocrit 31.6(L) 35.0 - 45.0 % 12/31/2024 10:10 AM EDT L Heme Coag UA SS MCV 86.9 79.4 - 94.8 fL 12/31/2024 10:10 AM EDT [facility] Heme Coag UA SS MCH 29.2 25.6 - 32.2 pg 12/31/2024 10:10 AM EDT [facility] Heme Coag UA SS MCHC 33.6 32.3 - 36.5 Gram/dL 12/31/2024 10:10 AM EDT [facility] Heme Coag UA SS RDW 12.5 11.0 - 15.5 % 12/31/2024 10:10 AM EDT [facility] Heme Coag UA SS Platelets 224 140 - 420 x10(3)/ul 12/31/2024 10:10 AM EDT [facility] Heme Coag UA SS MPV 11.2 8.7 - 12.0 fL 12/31/2024 10:10 AM EDT [facility] Heme Coag UA SS SLIDE REVIEW NONE 12/31/2024 10:10 AM EDT [facility] CH Remisol 2.0 SS Blood 12/31/2024 9:28 AM EDT 12/31/2024 9:53 AM EDT [facility] LAB - 12/31/2024 10:10 AM EDT Performed by [facility], [address] [place] [address] [facility] LAB BLOOD ORDERABLES Final Re sult Performing Organization Address [facility] de Phone Number [address] [address], [facility] Heme Coag UA Pathology Department [address] [place], [place] [address] CH Remisol 2.0 Pathology Department [address] [place] [address] * Phosphorus (12/31/2024 9:28 AM EDT) Phosphorus 3.1 2.5 - 5.0 mg/dL 12/31/2024 10:31 AM EDT [facility] CH Remisol 2.0 Blood 12/31/2024 9:28 AM EDT 12/31/2024 9:54 AM EDT [facility] LAB - 12/31/2024 10:31 AM EDT Performed by [facility], [address] [place] [address] [facility] LAB BLOOD ORDERABLES Final Re sult Performing Organization Address [facility] Co de Phone Number [facility] [address] [place] [address], [facility] CH Remisol 2.0 Pathology Department [address] [place] [address] * (ABNORMAL) Magnesium (12/31/2024 9:28 AM EDT) Magnesium 1.8(L) 1.9 - 2.7 mg/dL 12/31/2024 10:31 AM EDT [facility] CH Remisol 2.0 SS Blood Venous Draw / Unknown 12/31/2024 9:28 AM EDT 12/31/2024 9:54 AM EDT [facility] LAB - 12/31/2024 10:31 AM EDT Performed by [facility], [address] [place] [address] Nikki Jeffery GROUND WOOD SUPERVISOR LAB BLOOD ORDERABLES Final Re sult Performing Organization Address City/State/[facility] Co de Phone Number [facility] [address] [place] [address], [facility] CH Remisol 2.0 SS Pathology Department [address] [place] [address] * (ABNORMAL) Lipid panel (12/31/2024 9:28 AM [...] 9:28 AM EDT 12/31/2024 9:54 AM EDT [facility] LAB - 12/31/2024 10:31 AM EDT Performed by [facility], [address] [place] [address] Nikki Jeffery GROUND WOOD SUPERVISOR LAB BLOOD ORDERABLES Final Re sult [facility] [address] [place] [address], [facility] CH Remisol 2.0 SS Pathology Department [address] [place] [address] * (ABNORMAL) Comprehensive metabolic panel (12/31/2024 9:28 AM EDT) Sodium 142 136 - 145 mmol/L 12/31/2024 10:31 AM EDT [facility] CH Remisol 2.0 SS Potassium 4.9 3.5 - 5.1 mmol/L 12/31/2024 10:31 AM EDT [facility] CH Remisol 2.0 SS Chloride 111(H) 98 - 110 mmol/L 12/31/2024 10:31 AM EDT [facility] CH Remisol 2.0 SS CO2 23 21 - 31 mmol/L 12/31/2024 10:31 AM EDT [facility] CH Remisol 2.0 SS Anion Gap 8.0 2.0 - 11.0 12/31/2024 10:31 AM EDT [facility] CH Remisol 2.0 SS Calcium 9.0 8.6 - 10.2 mg/dL 12/31/2024 10:31 AM EDT [facility] CH Remisol 2.0 SS Glucose 169(H) 74 - 109 mg/dL 12/31/2024 10:31 AM EDT [facility] CH Remisol 2.0 SS BUN 20 7 - 25 mg/dL 12/31/2024 10:31 AM EDT L CH Remisol 2.0 SS Creatinine 1.31(H) 0.60 - 1.20 mg/dL 12/31/2024 10:31 AM EDT [facility] CH Remisol 2.0 SS BUN/Creatinine Ratio 15.3 [...] 9:28 AM EDT 12/31/2024 9:54 AM EDT [facility] LAB - 12/31/2024 10:31 AM EDT Performed by [facility], [address] [place] [address] [place] Nikki Jeffery APRN LAB BLOOD ORDERABLES Final Re sult [facility] [address] [place] [address], [facility] CH Remisol 2.0 SS Pathology Department [address] [place] [address] * Urine culture (12/31/2024 9:17 AM EDT) Urine 12/31/2024 9:17 AM EDT 12/31/2024 12:37 PM EDT Narrative [facility] - 01/05/2025 6:37 AM EDT FREDDIE [...] Locations R1: This test was performed at: [facility], Pathology Department, [address] [place] [address], [facility] , [place], [place] Non-Ulp Provider LAB MICROBIOLOGY - GENERAL ANABEL UGARTE Final Result Performing Organization Address [facility] Co de Phone Number [facility] [address] [place] [address] * Hepatitis C antibody (05/19/2023 8:10 AM EDT) Hep C Virus Ab NONREACTIVE Nonreactive 05/19/2023 12:09 PM EDT UL Core Remisol Blood 05/19/2023 8:10 AM EDT 05/19/2023 11:19 AM EDT Yue Kraft MD LAB BLOOD ORDERABLES Edited Resu lt - Final [facility] [address] [place] [address], [facility] Remisol Pathology Department [address] [place] [address] from Last 3 Months or Most Recently Relevant to Health Maintenance Insurance [place] Care Teams Traffic I Manager Relationship Specialty Start Date End Date Jaquan Conley MD [address] [place] [address] [place] [address] PCP - General Internal Medicine 09/18/20
--- OUTSIDE RECORDS SUMMARY | 2025-02-26 10:16 | XMS_ITS | Encounter Summary ---
Author Organization [employer] ([place], [place], [place], [place]) Address [address] [place] [address] Care Team Providers Care Traffic Control Signaler Name Role Phone Unavailable Primary Care Provider Unavailabl e Encounter Details Date Type Department Care Team (Late st Contact Info) Description 12/24/2018 Transcribed Document [facility] Family Medicine [address] [place] [address] ProviderLaury MD [address] [place] [address] Social History Tobacco Use Types Packs/Day [...] Laury ProviderMD - 12/24/2018 7:19 PM CDT [facility] ADDRESS [place], [place] [phone] Name:Crystal Archer Visit Date:12/24/2018 15:01:00 Emergency Department Care Providers: Physician: MEGHA MAN Physician: Our doctors and staff appreciate your choice of [facility] for your emergency medical care. Read these instructions carefully. Please call us if you have any questions about your medical problem. [facility] Emergency Department [phone] [facility] Emergency Department [phone] [facility] Emergency Department [phone] Patient Education Materials Gianni Crystal Karen has [...] Medicines may be prescribed or be available axhj-sia-cfsgmke. The medicines may be: ??? Taken by mouth (orally). ??? Applied as a cream. Follow these instructions at home: ??? Take or apply uyft-vyl-bzofvvp and prescription medicines only as told by [...] 03/21/2012 Document Revised: 02/27/2017 Document Reviewed: 01/05/2016 [employer] Patient Education ? 2019 [employer]. FOLLOW UP CARE Most conditions that require [...] the x-ray department to pick them up [facility] # [phone] [facility] # [phone] o [facility] # [phone] ?? If you had cultures done and [...] quit. o National Network of Tobacco Cessation [id number] o [employer] o [place] [employer] [phone] o Sai/Manuel Mccray [phone] FINANCIAL INFORMATION ?? [facility] provides financial counseling to anyone who requests our services. ?? Emergency Physicians are independently contracted to provide your care. You will receive a bill for the care provided to you by the Physician and/or the Physician Fbi Field Agent. This will be a separate bill from [...] as recommended Patient Signature / or Patient Environmental Monitoring Specialist Provider Signature Date Electronically signed by [facility], [facility] Conversion Design Engineering Specialist Cerner at 10/19/2022 11:23 AM CDT documented in this encounter Plan of Treatment Not on file documented as of this encounter Visit Diagnoses Not on filedocumented in this encounter
--- OUTSIDE RECORDS SUMMARY | 2025-02-26 10:16 | XMS_ITS | Encounter Summary ---
Author Organization [facility] Address [address] [place] [address] Care Team Providers Care Reporting Specialist Name Role Phone Jaquan Conley MD Primary Care Provider [phone] Reason for Visit * Reason Comments Med Refill Encounter Details Date Type Department Care Team (Late st Contact Info) Description 09/25/2024 Refill [facility] - Transplantation Surgery [address] [address] Cb Forrester MD [address] [facility], [address] [place] [address] Social History Tobacco Use Types Packs/Day Years [...] on filedocumented in this encounter Care Teams Reporting Specialist Relationship Specialty Start Date End Date Jaquan Conley MD [address] [place] [address] [place] [address] PCP - General Internal Medicine 09/18/20 documented as of this encounter
--- OUTSIDE RECORDS SUMMARY | 2025-02-26 10:16 | XMS_ITS | Encounter Summary ---
Author Organization [employer] ([place], [place], [place], [place]) Address [address] [place] [address] Care Team Providers Care General Manager Farm Name Role Phone Unavailable Primary Care Provider Unavailabl e Encounter Details Date Type Department Care Team (Late st Contact Info) Description 08/03/2018 Transcribed Document [facility] Family Medicine [address] [place] [address] ProviderLaury MD [address] [place] [address] Social History Tobacco Use Types Packs/Day [...] - Laury ProviderMD - 08/03/2018 7:32 PM FIRE SUPERVISOR [facility] Emergency Department Depart Summary PERSON INFORMATION Name Crystal Archer Age 27 Years 1990 Sex Female Language PCP Marital Status Phone [phone] Visit Id Visit Reason Specialty Enc Type Emergency Med Service Referred by Track Group GM [place] Discharge Tracking Id [id number] Checkout 08/03/2018 14:32:57 Checkin 08/03/2018 13:52:00 Acuity 3 - Urgent [facility] Dispo Type Arrival 08/03/2018 13:52:00 Reg Status LOS 000 00:40 Address: [address] [place] [address] [place] [address] POWERFORMS PHYSICIAN NOTES VITALS INFORMATION Vital Sign Triage Temp 98.1 Temp Route Oral/Mouth Pulse Rate 90 Respiratory Rate 18 Blood Pressure 152/ 87 LOCATION INFORMATION Arrival Nurse Unit Room Bed 08/03/2018 13:52:00 [facility] ED Waitroom ([facility]) 08/03/2018 13:55:29 [facility] ED 3 08/03/2018 14:32:57 [facility] ED Checkout ([facility]) MEDICAL INFORMATION Allergy Info: No Known Allergies PATIENT EDUCATION INFORMATION Instructions: Follow up: DIAGNOSIS documented in this encounter Plan of Treatment Not on file documented as of this encounter Visit Diagnoses Not on filedocumented in this encounter
--- OUTSIDE RECORDS SUMMARY | 2025-02-26 10:16 | XMS_ITS | Encounter Summary ---
Author Organization [employer] ([place], [place], [place], [place]) Address [address] [place] [address] Care Team Providers Care Chemical Analytical Sampler Name Role Phone Unavailable Primary Care Provider Unavailabl e Encounter Details Date Type Department Care Team (Late st Contact Info) Description 09/07/2018 Transcribed Document [facility] Family Medicine [address] [place] [address] ProviderLaury MD [address] [place] [address] Social History Tobacco Use Types Packs/Day [...] - Laury ProviderMD - 09/07/2018 8:23 PM EXCAVATOR BACKHOE OPERATOR BBK Triage ED Entered On: 09/07/2018 15:30 [...] : No GI 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 : No Jumpbasting Facing Baster Hx : No Heart Attack : No [...] Source : Stated Height Entry Format : Chaves Height, Inches : 65 Inch(Converted to: 5 ft 5 Inch, 165.10 cm) Clinical Height : 165.1 cm Weight Source : Stated Type of Weight Measurement Est : Chaves Weight, est lb : 215 lb Estimated Clinical Dosing Weight : 97.73 kg [place] Body Weight : 57 kg Body Surface Area Estimated : 2.12 m2 Body Mass Index Estimated : 35.85 kg/m2 Silvia Cole, - 09/07/2018 15:23 EST Medication List ED Medications Reviewed : Yes Source of Information : Patient Silvia Cole, - 09/07/2018 15:23 EST Medication List (As Of: 09/07/2018 15:30:02 EST) Home Meds Status: Processing ; Ordered As Mnemonic: [place] 5 mg-325 mg oral tablet ; Simple [...] Douglas Silviareji Deal, - 09/07/2018 15:23 EST Electronically signed by Zuleyka Byrd Conversion Sales And Merchandising Representative Cerner at 10/19/2022 11:22 AM CDT documented in this encounter Plan of Treatment Not on file documented as of this encounter Visit Diagnoses Not on filedocumented in this encounter
--- OUTSIDE RECORDS SUMMARY | 2025-02-26 10:16 | XMS_ITS | Encounter Summary ---
Author Organization [employer] ([place], [place], [place], [place]) Address [address] [place] [address] Care Team Providers Care Construction Representative Name Role Phone Unavailable Primary Care Provider Unavailabl e Encounter Details Date Type Department Care Team (Late st Contact Info) Description 09/26/2018 Transcribed Document [facility] [place] [address] [place] [address] ProviderLaury MD [address] [place] [address] Social History Tobacco Use Types Packs/Day [...] Laury ProviderMD - 09/26/2018 10:56 PM CDT [facility] ADDRESS [place], [place] [phone] Name:Crystal Archer Visit Date:09/26/2018 16:44:00 Emergency Department Care Providers: Physician: INDIO PEREA Physician: Our doctors and staff appreciate your choice of [facility] for your emergency medical care. Read these instructions carefully. Please call us if you have any questions about your medical problem. [facility] Emergency Department [phone] [facility] Emergency Department [phone] [facility] Emergency Department [phone] Patient Education Materials Crystal Archer Karen has [...] 07/04/2006 Document Revised: 12/09/2016 Document Reviewed: 03/04/2014 imgScrimmage Interactive Patient Education ? 2017 [employer]Scrimmage Inc. FOLLOW UP CARE Most conditions that [...] to pick them up o [facility] # [phone] o [facility] # [phone] o [facility] # [phone] ?? If you had cultures done and [...] quit. o National Network of Tobacco Cessation [id number]-NOW o [place] Lung Association o [place]ian Heart Association [phone] o Sai/Manuel Mccray [phone] FINANCIAL INFORMATION ?? [facility] provides financial counseling to anyone who requests our services. ?? Emergency Physicians are independently contracted to provide your care. You will receive a bill for the care provided to you by the Physician and/or the Physician Bench Technician. This will be a separate bill [...] as recommended Patient Signature / or Patient Medical Bill Processor Provider Signature Date documented in this encounter Plan of Treatment Not on file documented as of this encounter Visit Diagnoses Not on filedocumented in this encounter
--- OUTSIDE RECORDS SUMMARY | 2025-02-26 10:16 | XMS_ITS | Encounter Summary ---
Author Organization [employer] ([place], [place], [place], [place]) Address [address] [place] [address] Care Team Providers Care Medical Social Worker Name Role Phone Unavailable Primary Care Provider Unavailabl e Encounter Details Date Type Department Care Team (Late st Contact Info) Description 12/24/2018 Transcribed Document [facility] [place] [address] [place] [address] ProviderLaury MD [address] [place] [address] Social History Tobacco Use Types Packs/Day [...] Rash Primary Care Provider : Rema Ferreira, Law Writer Accompanied By : Family/Spouse/SO Arrival Mode : [...] : No GI 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 : No Corporate Communications Specialist Hx : No Heart Attack : [...] Source : Stated Height Entry Format : [place] Height, Inches : 65 Inch(Converted to: 5 ft 5 Inch, 165.10 cm) Clinical Height : 165.1 cm Weight Source : Bed scale Weight Entry Format : [place] Weight, Pounds : 221 lb Clinical Dosing Weight : 100.45 kg Body Surface Area-(BSA) : 2.15 m2 Body Mass Index : 36.9 kg/m2 (HI) [place] Body Weight : 57 kg Maddi Tomlin [...] EDT Electronically signed by Zuleyka Byrd Conversion Bindery Library Technical Assistant Cerner at 10/19/2022 11:23 AM CDT documented in this encounter Plan of Treatment Not on file documented as of this encounter Visit Diagnoses Not on filedocumented in this encounter
--- OUTSIDE RECORDS SUMMARY | 2025-02-26 10:16 | XMS_ITS | Encounter Summary ---
Author Organization [facility] Address [address], [address] [place] [address] Care Team Providers Care Dynamiter Name Role Phone Jaquan Conley MD Primary Care Provider [phone] Reason for Referral * Imaging (Emergency) - Closed Specialty Diagnoses / Procedures Referred By Contac t Referred To Contact Radiology Diagnoses Urinary retention Procedures US RENAL COMPLETE Yue Abdalla APRN [address] [place] [address] Phone: tel: Referral ID Status Reason Start Date Expiration Date Visits Re quested Visits Authorized [id number] Closed 01/09/2021 01/09/2022 1 1 Encounter Details Date Type Department Care Team (Latest Contact Info) Description 01/09/2021 Transcribe Orders [facility] PRE ACCESS [address] [place] [address] Yue Abdalla APRN [address] [place] [address] Urinary retention (Primary Dx) Social [...] abnormality of the kidneys or urinary bladder. [facility] Rm SURVEYING TEACHER [facility] [place] ORDERABLES Final Result documented in this encounter Visit Diagnoses Diagnosis Urinary retention- Primary Retention of urine, unspecified Urinary retention Retention of urine, unspecified documented in this encounter Care Teams Dynamiter Relationship Specialty Start Date End Date Jaquan Conley MD [address] [place] [address] PCP - General Internal Medicine 01/09/21 documented as of this encounter
--- OUTSIDE RECORDS SUMMARY | 2025-02-26 10:16 | XMS_ITS | Encounter Summary ---
Author Organization [employer] ([place], [place], [place], [place]) Address [address] [place] [address] Care Team Providers Care Residential Program Coordinator Name Role Phone Unavailable Primary Care Provider Unavailabl e Encounter Details Date Type Department Care Team (Late st Contact Info) Description 12/24/2018 Transcribed Document [facility] [place] [address] [place] [address] ProviderLaury MD [address] [place] [address] Social History Tobacco Use Types Packs/Day [...] Laury ProviderMD - 12/24/2018 7:19 PM CDT [facility] Department Depart Summary PERSON INFORMATION Name Crystal Archer Age 28 Years 1990 Sex Female Language PCP Marital Status Phone [id number] Visit Id Visit Reason Specialty Enc Type Emergency Med Service Referred by Track Group [facility] Discharge Tracking Id [id number] Checkout 12/24/2018 15:19:27 Checkin 12/24/2018 15:01:00 Acuity 4 - Non-urgent [facility] Dispo Type Arrival 12/24/2018 15:01:00 Reg Status LOS 000 00:18 Address: [address] [place], [place] [address] [address] POWERFORMS PHYSICIAN NOTES VITALS INFORMATION Vital Sign Triage Temp 98.6 Temp Route Oral/Mouth Pulse Rate 101 Respiratory Rate 20 Blood Pressure 179/ 89 LOCATION INFORMATION Arrival Nurse Unit Room Bed 12/24/2018 15:01:00 [facility] ED Waitroom ([facility]) 12/24/2018 15:04:15 [facility] ED 1 12/24/2018 15:19:27 [facility] ED Checkout ([facility] [...]
--- OUTSIDE RECORDS SUMMARY | 2025-02-26 10:16 | XMS_ITS | Encounter Summary ---
Author Organization [employer] ([place], [place], [place], [place]) Address [address] [place] [address] Care Team Providers Care Supervisor Kosher Dietary Service Name Role Phone Unavailable Primary Care Provider Unavailabl e Encounter Details Date Type Department Care Team (Late st Contact Info) Description 12/24/2018 Transcribed Document [facility] [place] [address] [place] [address] ProviderLaury MD [address] [place] [address] Social History Tobacco Use Types Packs/Day [...] Laury ProviderMD - 12/24/2018 7:19 PM CDT [facility] ADDRESS [place], [place] [phone] Name:Crystal Archer Visit Date:12/24/2018 15:01:00 Emergency Department Care Providers: Physician: MEGHA MAN Physician: Our doctors and staff appreciate your choice of [facility] for your emergency medical care. Read these instructions carefully. Please call us if you have any questions about your medical problem. [facility] Emergency Department [phone] [facility] Emergency Department [phone] [facility] Emergency Department [phone] Patient Education Materials Gianni Crystal Karen has [...] Medicines may be prescribed or be available wzgd-pui-qqzxipj. The medicines may be: ??? Taken by mouth (orally). ??? Applied as a cream. Follow these instructions at home: ??? Take or apply hrgs-sfy-rljrpem and prescription medicines only as told by [...] 03/21/2012 Document Revised: 02/27/2017 Document Reviewed: 01/05/2016 ActiveRain Interactive Patient Education ? 2019 [employer]. FOLLOW UP CARE Most conditions that require [...] the x-ray department to pick them up [facility] # [phone] [facility] # [phone] o [facility] # [phone] ?? If you had cultures done and [...] quit. o National Network of Tobacco Cessation [id number]-OKMS-NOW o [place] Lung Association o [place]ogolese Heart Association [phone] o Sai/Manuel Mccray [phone] FINANCIAL INFORMATION ?? [facility] provides financial counseling to anyone who requests our services. ?? Emergency Physicians are independently contracted to provide your care. You will receive a bill for the care provided to you by the Physician and/or the Physician Community Health Coordinator. This will be a separate bill [...] as recommended Patient Signature / or Patient Line Erector Apprentice Provider Signature Date Date/Time 12/24/2018 15:19 Saint [...]
--- OUTSIDE RECORDS SUMMARY | 2025-02-26 10:16 | XMS_ITS | Encounter Summary ---
Author Organization [employer] ([place], [place], [place], [place]) Address [address] [place] [address] Care Team Providers Care Deckhand Crab Boat Name Role Phone Unavailable Primary Care Provider Unavailabl e Encounter Details Date Type Department Care Team (Late st Contact Info) Description 09/26/2018 Transcribed Document [facility] [place] [address] [place] [address] ProviderLaury MD [address] [place] [address] Social History Tobacco Use Types Packs/Day [...] - Urgent BBK Tracking Group : [facility] [place] Dre, Marry 09/26/2018 16:51 EDT ED Visit Reason : Urinary/Voiding Complaints Primary Care Provider : Rema Ferreira, Civil Clerk Accompanied By : Family/Spouse/SO Arrival Mode : Ambulatory Chief Complaint : PT. PRESENTS TO ER WITH C/O BLOOD IN URINE. PT. REPORTS SHE WAS SEEN BY PRIMARY YESTERDAY FOR SAME SYMPTOMS REPORTS WAS CHECKED FOR UTI NEGATIVE. DENIES NAUSEA. Marry Ericskon 09/26/2018 16:51 EDT Health History ED Grid Alcohol Use : No Caffeine Use : Yes Substance Abuse : No Tobacco Use : Yes, 1ppd Asthma/COPD : No Cancer : No CVA/TIA : No Mental Illness : No Dementia : No Diabetes : Yes, insulin pump 2014 General Cardiac : No GI 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 : No Orthodontic Laboratory Technician Hx : No Heart Attack [...] Preferred Communication Mode : Verbal Languages : Bruneian Child/Parent Domestic Concerns : None Threats of Suicide : No Marry Erickson 09/26/2018 16:51 EDT Height and Weight Height Source : Stated Height Entry Format : [place] Height, Inches : 65 Inch(Converted to: 5 ft 5 Inch, 165.10 cm) Clinical Height : 165.1 cm Weight Source : Stated Type of Weight Measurement Est : [place] Weight, est lb : 213 lb Estimated Clinical Dosing Weight : 96.82 kg [place] Body Weight : 57 kg Body Surface [...] ; Status: Documented ; Ordered As Mnemonic: [place] 5 mg-325 mg oral tablet ; Simple [...]
--- OUTSIDE RECORDS SUMMARY | 2025-02-26 10:16 | XMS_ITS | Encounter Summary ---
Author Organization [employer] ([place], [place], [place], [place]) Address [address] [place] [address] Care Team Providers Care Grader Operator Name Role Phone Unavailable Primary Care Provider Unavailabl e Encounter Details Date Type Department Care Team (Late st Contact Info) Description 09/07/2018 Transcribed Document [facility] [place] [address] [place] [address] ProviderLaury MD [address] [place] [address] Social History Tobacco Use Types Packs/Day [...] - Laury ProviderMD - 09/07/2018 9:31 PM ASSOCIATE AGENT INSURANCE SALES [facility] ADDRESS [place], [place] [phone] Name:Crystal Archer Visit Date:09/07/2018 15:20:00 Emergency Department Care Providers: Physician: MEGHA MAN Physician: Our doctors and staff appreciate your choice of [facility] for your emergency medical care. Read these instructions carefully. Please call us if you have any questions about your medical problem. [facility] Emergency Department [phone] [facility] Emergency Department [phone] [facility] Emergency Department [phone] Patient Education Materials Gianni Crystal Jones has [...] 12/15/2006 Document Revised: 03/06/2017 Document Reviewed: 12/11/2014 TranslateMedia Interactive Patient Education ? 2017 TranslateMedia Inc. FOLLOW UP CARE Most conditions that [...] them up o [facility] # [phone] [facility] # [phone] o [facility] # [phone] ?? If you had cultures done and [...] quit. o National Network of Tobacco Cessation [id number]-SYUJ-NOW o [place] Lung Association o [place] Heart Association [phone] o Sai/Manuel Mccray [phone] FINANCIAL INFORMATION ?? [facility] provides financial counseling to anyone who requests our services. ?? Emergency Physicians are independently contracted to provide your care. You will receive a bill for the care provided to you by the Physician and/or the Physician Eyewear Manufacturing Supervisor. This will be a separate bill [...] as recommended Patient Signature / or Patient Doughnut Machine Operator Provider Signature Date Date/Time 09/07/2018 16:31 Saint [...] oral tablet loratadine 10 mg oral capsule [place] 5 mg-325 mg oral tablet sodium bicarbonate [...]
--- OUTSIDE RECORDS SUMMARY | 2025-02-26 10:16 | XMS_ITS | Encounter Summary ---
Author Organization [employer] ([place], [place], [place], [place]) Address [address] [place] [address] Care Team Providers Care Biodiesel Technology Manager Name Role Phone Unavailable Primary Care Provider Unavailabl e Encounter Details Date Type Department Care Team (Late st Contact Info) Description 08/03/2018 Transcribed Document [facility] [place] [address] [place] [address] ProviderLaury MD [address] [place] [address] Social History Tobacco Use Types Packs/Day [...] - Laury ProviderMD - 08/03/2018 7:32 PM [facility] ADDRESS [place], [place] [phone] Name:Crystal Archer Visit Date:08/03/2018 13:52:00 Emergency Department Care Providers: Physician: MEGHA MAN Physician: Our doctors and staff appreciate your choice of [facility] for your emergency medical care. Read these instructions carefully. Please call us if you have any questions about your medical problem. [facility] Emergency Department [phone] [facility] Emergency Department [phone] [facility] Emergency Department [phone] Patient Education Materials Gianni Crystal Jones has [...] them up o [facility] # [phone] o [facility] # [phone] o [facility] # [phone] ?? If you had cultures done and [...] quit. o National Network of Tobacco Cessation ITfmthhdd1-636-EEHU-NOW o English Lung Association o English Heart Association [phone] o Sai/Manuel Mccray [phone] FINANCIAL INFORMATION ?? [facility] provides financial counseling to anyone who requests our services. ?? Emergency Physicians are independently contracted to provide your care. You will receive a bill for the care provided to you by the Physician and/or the Physician Environmental Management Specialist. This will be a separate [...] as recommended Patient Signature / or Patient Senior Project Coordinator Provider Signature Date Date/Time 08/03/2018 14:32 Saint [...]
--- OUTSIDE RECORDS SUMMARY | 2025-02-26 10:16 | XMS_ITS | Encounter Summary ---
Author Organization [employer] ([place], [place], [place], [place]) Address [address] [place] [address] Care Team Providers Care Insulation Sprayer Name Role Phone Unavailable Primary Care Provider Unavailabl e Encounter Details Date Type Department Care Team (Late st Contact Info) Description 08/03/2018 Transcribed Document [facility] [place] [address] [place] [address] ProviderLaury MD [address] [place] [address] Social History Tobacco Use Types Packs/Day [...] - Laury ProviderMD - 08/03/2018 6:57 PM ASSOCIATE PROFESSOR OF GEOGRAPHY BBK Triage ED Entered On: 08/03/2018 14:06 [...] back pain, dysuria since 0430. D/CD from [facility] 07/22 AMA for UTI. Health History [...] : No GI 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 : No Reed Dipper Hx : No Heart Attack : No [...] Preferred Communication Mode : Verbal Languages : Hong Konger Child/Parent Domestic Concerns : None Threats of Suicide : No ROSA FOSTER 08/03/2018 13:57 EST Height and Weight Height Source : Stated Height Entry Format : [place] Height, Inches : 65 Inch(Converted to: 5 ft 5 Inch, 165.10 cm) Clinical Height : 165.1 cm Weight Source : Stated Type of Weight Measurement Est : [place] Weight, est lb : 215 lb Estimated Clinical Dosing Weight : 97.73 kg [place] Body Weight : 57 kg Body Surface [...] EST Electronically signed by Christopher Byrd Conversion Client Technical Support Associate Cerner at 10/19/2022 11:22 AM CDT documented in this encounter Plan of Treatment Not on file documented as of this encounter Visit Diagnoses Not on filedocumented in this encounter
--- OUTSIDE RECORDS SUMMARY | 2025-02-26 10:16 | XMS_ITS | Encounter Summary ---
Author Organization [employer] ([place], [place], [place], [place]) Address [address] [place] [address] Care Team Providers Care Water Main Pipe Layer Name Role Phone Unavailable Primary Care Provider Unavailabl e Encounter Details Date Type Department Care Team (Late st Contact Info) Description 11/19/2018 Transcribed Document [facility] [place] [address] [place] [address] ProviderLaury MD [address] [place] [address] Social History Tobacco Use Types Packs/Day [...] Laury ProviderMD - 11/19/2018 1:52 AM CDT [facility] ADDRESS [place], [place] [phone] Name:Crystal Archer Visit Date:11/18/2018 20:06:00 Emergency Department Care Providers: Physician: Clara Elias Phys Asst Physician: Our doctors and staff appreciate your choice of [facility] for your emergency medical care. Read these instructions carefully. Please call us if you have any questions about your medical problem. [facility] Emergency Department [phone] [facility] Emergency Department [phone] [facility] Emergency Department [phone] Patient Education Materials Gianni Crystal Jones has [...] start to feel better. ??? Only take zwob-htn-fqkloev or prescription medicines for pain, discomfort, or [...] 01/29/2014 Elsevier Interactive Patient Education ? 2017 [employer] Inc. Obstetrics and Gynecology Urinary Tract Infection, Adult Introduction A urinary tract infection (UTI) is an infection of any part of the urinary tract. The urinary tract includes the: ??? Kidneys. ??? Ureters. ??? Bladder. ??? Urethra. These organs make, store, and get rid of pee (urine) in the body. Follow these instructions at home: ??? Take smtz-wad-jcoaabe and prescription medicines only as told by [...] up o [facility] # [phone] o [facility] # [phone] o [facility] # [phone] ?? If you had cultures done and [...] quit. o National Network of Tobacco Cessation [id number]-HKCQ-NOW o [place] Lung Association o [place]uvian Heart Association [phone] o Sai/Manuel Mccray [phone] FINANCIAL INFORMATION ?? [facility] provides financial counseling to anyone who requests our services. ?? Emergency Physicians are independently contracted to provide your care. You will receive a bill for the care provided to you by the Physician and/or the Physician Software Educator. This will be a separate bill from [...] Patient Education Materials: ENT Otitis Media, Adult, Mzrw-rl-Dgff Obstetrics and Gynecology Urinary Tract Infection, Adult, Hnuu-vn-Myav Follow-Up Instructions: Follow Up With: Where: When: [...] as recommended Patient Signature / or Patient Socket Puller Provider Signature Date Date/Time 11/18/2018 21:52 Saint [...]
--- OUTSIDE RECORDS SUMMARY | 2025-02-26 10:16 | XMS_ITS | Encounter Summary ---
Author Organization [employer] ([place], [place], [place], [place]) Address [address] [place] [address] Care Team Providers Care Postal Worker Name Role Phone Unavailable Primary Care Provider Unavailabl e Encounter Details Date Type Department Care Team (Late st Contact Info) Description 08/03/2018 Transcribed Document [facility] [place] [address] [place] [address] ProviderLaury MD [address] [place] [address] Social History Tobacco Use Types Packs/Day [...] - Laury ProviderMD - 08/03/2018 7:32 PM RETAIL WIRELESS SALES CONSULTANT [facility] ADDRESS [place], [place] [phone] Name:Crystal Archer Visit Date:08/03/2018 13:52:00 Emergency Department Care Providers: Physician: MEGHA MAN Physician: Our doctors and staff appreciate your choice of [facility] for your emergency medical care. Read these instructions carefully. Please call us if you have any questions about your medical problem. [facility] Emergency Department [phone] [facility] Emergency Department [phone] [facility] Emergency Department [phone] Patient Education Materials Gianni Crystal Jones has [...] x-ray department to pick them up o [facility] # [phone] o [facility] # [phone] o [facility] # [phone] ?? If you had cultures done and [...] quit. o National Network of Tobacco Cessation [id number]-NOW o [place] Lung Association o [place] Heart Association [phone] o Sai/Manuel Mccray [phone] FINANCIAL INFORMATION ?? [facility] provides financial counseling to anyone who requests our services. ?? Emergency Physicians are independently contracted to provide your care. You will receive a bill for the care provided to you by the Physician and/or the Physician Poultry Hatchery Supervisor. This will be a separate bill [...] as recommended Patient Signature / or Patient Launch Operator Provider Signature Date documented in this encounter Plan of Treatment Not on file documented as of this encounter Visit Diagnoses Not on filedocumented in this encounter
--- OUTSIDE RECORDS SUMMARY | 2025-02-26 10:16 | XMS_ITS | Encounter Summary ---
Author Organization [employer] ([place], [place], [place], [place]) Address [address] [place] [address] Care Team Providers Care Retail Wireless Sales Consultant Name Role Phone Unavailable Primary Care Provider Unavailabl e Encounter Details Date Type Department Care Team (Late st Contact Info) Description 01/08/2019 Transcribed Document [facility] [place] Family Medicine [address] [place] [address] ProviderLaury MD [address] [place] [address] [id number] Social History Tobacco Use Types Packs/Day Years [...] Laury ProviderMD - 01/08/2019 12:31 AM CDT [facility] [place], [place] [phone] Name:Crystal Archer Visit Date:01/07/2019 18:52:00 Emergency Department Care Providers: Physician: Physician: Our doctors and staff appreciate your choice of [facility] for your emergency medical care. Read these instructions carefully. Please call us if you have any questions about your medical problem. [facility] Emergency Department [phone] [facility] Emergency Department [phone] [facility] Emergency Department [phone] Patient Education Materials Crystal Archer Karen has [...] up o [facility] # [phone] o [facility] # [phone] o [facility] # [phone] ?? If you had cultures done and [...] quit. o National Network of Tobacco Cessation SXcsaiuti9-156-ANRD-NOW o [place] [employer] o [place] [employer] [phone] o Sai/Manuel Mahendra [phone] FINANCIAL INFORMATION ?? [facility] provides financial counseling to anyone who requests our services. ?? Emergency Physicians are independently contracted to provide your care. You will receive a bill for the care provided to you by the Physician and/or the Physician Phlebotomy Director. This will be a separate bill from [...] as recommended Patient Signature / or Patient J2Ee Java Developer Provider Signature Date documented in this encounter Plan of Treatment Not on file documented as of this encounter Visit Diagnoses Not on filedocumented in this encounter
--- OUTSIDE RECORDS SUMMARY | 2025-02-26 10:16 | XMS_ITS | Clinical Summary ---
Author Organization [employer] ([place], [place], [place], [place]) Address [address] [place] [address] Care Team Providers Care Top Collar Maker Name Role Phone Unavailable Primary Care [...] Date Blaine rded Speak language other than Icelandic at home Not on file 07/30/2023 Want [...] patient's age to complete this topic Insurance [place] [address] Advance Directives For more information, please contact: [phone] * Full Code (Latest Code Status on File) Date Activated Date Inactivated Comments 09/23/2022 6:27 AM 09/23/2022 11:31 AM
--- OUTSIDE RECORDS SUMMARY | 2025-02-26 10:16 | XMS_ITS | Encounter Summary ---
Author Organization [employer] ([place], [place], [place], [place]) Address [address] [place] [address] Care Team Providers Care Odd Jobs Day Worker Name Role Phone Unavailable Primary Care Provider Unavailabl e Encounter Details Date Type Department Care Team (Late st Contact Info) Description 01/08/2019 Transcribed Document [facility] [place] Family Medicine [address] [place] [address] ProviderLaury MD [address] [place] [address] [id number] Social History Tobacco Use Types Packs/Day Years [...] Laury ProviderMD - 01/08/2019 12:31 AM CDT [facility] ADDRESS [place], [place] [phone] Name:Crystal Archer Visit Date:01/07/2019 18:52:00 Emergency Department Care Providers: Physician: Physician: Our doctors and staff appreciate your choice of [facility] for your emergency medical care. Read these instructions carefully. Please call us if you have any questions about your medical problem. [facility] Emergency Department [phone] [facility] Emergency Department [phone] [facility] Emergency Department [phone] Patient Education Materials Crystal Archer Karen has [...] pick them up o [facility] # [phone] o [facility] # [phone] o [facility] # [phone] ?? If you had cultures done and [...] quit. o National Network of Tobacco Cessation LXsmhfnbw0-793-RHXB-NOW o [place] [employer] o [place] [employer] [phone] o Sai/Manuel Mahendra [phone] FINANCIAL INFORMATION ?? [facility] provides financial counseling to anyone who requests our services. ?? Emergency Physicians are independently contracted to provide your care. You will receive a bill for the care provided to you by the Physician and/or the Physician Second Time Worker. This will be a separate bill [...] recommended Patient Signature / or Patient Medical Claims Specialist Provider Signature Date Date/Time 01/07/2019 20:31 Saint [...] Date Electronically signed by Zuleyka Byrd Conversion Manager Of Financial Reporting Keysha at 10/19/2022 11:23 AM CDT documented in this encounter Plan of Treatment Not on file documented as of this encounter Visit Diagnoses Not on filedocumented in this encounter
--- OUTSIDE RECORDS SUMMARY | 2025-02-26 10:16 | XMS_ITS | Encounter Summary ---
Author Organization [employer] ([place], [place], [place], [place]) Address [address] [place] [address] Care Team Providers Care Logistics Solution Manager Name Role Phone Unavailable Primary Care Provider Unavailabl e Encounter Details Date Type Department Care Team (Late st Contact Info) Description 01/07/2019 Transcribed Document [facility] [place] Family Medicine [address] [place] [address] ProviderLaury MD [address] [place] [address] Social History Tobacco Use Types Packs/Day [...] : No GI 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 : No Transplant Registered Nurse Hx : No Heart Attack : No [...]
[2025-02-26 11:27] LABS: Bilirubin,Urine Negative (Negative); Color,Urine YELLOW (Yellow); Glucose,Urine (UA) Negative (Negative); Ketones,Urine Negative (Negative); Leukocyte Esterase,Urine Negative (Negative); PH,Urine 6.0 (5.0-8.5); Protein,Urine Negative (Negative); Specific Gravity, Urine >= 1.030 (1.005-1.030); Urobilinogen,Urine 0.2 EU/dl (0.2)
[2025-02-26 11:28] LABS: Hematocrit 35.9 % (37.0-47.0); Hemoglobin 11.4 g/dL (12.2-16.2); Immature Granulocytes % 0.3 %; Mean Corpuscular HGB Conc 31.8 g/dL (31.8-35.4); Mean Corpuscular Hemoglobin 28.9 pg (27.0-31.2); Mean Corpuscular Volume 90.9 fl (81-99); Nucleated Red Blood Cells % 0 %; Platelet Count 191 K/mm3 (142-424); Red Blood Count 3.95 M/mm3 (4.20-5.40); Red Cell Distribution Width-SD 43.9 fL; White Blood Count 2.9 K/mm3 (4.8-10.8)
[2025-02-26 11:38] LABS: Bacteria,Urine 2+ /lpf
[2025-02-26 11:45] LABS: Hemoglobin A1C 5.2 % (4.0-6.0)
[2025-02-26 12:01] LABS: Phosphorous 3.2 mg/dl (2.5-4.5)
[2025-02-26 12:01] LABS: Cholesterol 105 mg/dl (140-200); HDL Cholesterol 45 mg/dl (40-60); Magnesium 1.4 mg/dl (1.6-2.3); Triglycerides 88 mg/dl (30-150)
[2025-02-28 15:22] LABS: BKV DNA, Quant PCR, Plasma Negative (Negative)
== END 2025-02-26 23:59 | disposition home or self-care (01) ==
LOC: LAB 10:00
PROVIDERS: Internal Medicine Nephrology; PCP Nurse Practitioner; Visit Provider Nurse Practitioner Family
DX: Z94.0 Kidney transplant status (principal)
CPT/HCPCS: 36415; 80061; 80197; 81001; 82570; 83036; 83735; 84100; 84156; 85025; 87086; 87088; 87186; 87799

== ENCOUNTER 2025-03-05 09:13 | Outpatient (CLI) | payer MEDICAID, SELFPAY ==
--- OUTSIDE RECORDS SUMMARY | 2025-02-06 10:45 | XMS_ITS | Encounter Summary ---
Author Organization [facility] Address [address] [place] [address] Care Team Providers Care Gold Miner Name Role Phone Maria A Soria APRN Primary Care Provider [phone] Reason for Visit * Reason Comments Dysuria Encounter Details Date Type Department Care Team (Late st Contact Info) Description 02/06/2025 10:45 AM EDT Office Visit [facility] [address] [place] [phone] Maria A Soria APRN [address] [place] [address] Dysuria (Primary Dx) Social History [...] emptying. Contacted her transplant medical team at [facility] this morning with her symptoms set. She [...] emptying. Contacted her transplant medical team at [facility] this morning with her symptoms set. She [...] 10/17/2012 SECTION GASTRIC SLEEVE LAPAROSCOPIC INDUCED 2006 [facility] History reviewed. No pertinent family history. Vital [...] emptying. Contacted her transplant medical team at [facility] this morning with her symptoms set. She [...] 10:33 AM EDT 02/06/2025 Comment:Urine Release to [facility] Aristeo [facility]) - 02/08/2025 6:06 AM EDT Performed at: - [facility] [address] [id number] Accounts Payable Bookkeeper: Jacob Whaley PhD, Phone: [phone] us Maria A Soria APRN MICROBIOLOGY - GENERAL ANABEL UGARTE Final Result [facility] [address] [place] [address], [place] [phone] [facility] [address] [place] [address], [place] [phone] documented in this encounter Visit Diagnoses Diagnosis Dysuria- Primary documented in this encounter Care Teams Gold Miner Relationship Specialty Start Date End Date Maria A Soria APRN [address] [place] [address] PCP - General Family Medicine 02/15/23 documented as of this encounter
--- OUTSIDE RECORDS SUMMARY | 2025-02-22 10:30 | XMS_ITS | Encounter Summary ---
Author Organization [facility] Address [address] [place] [address] Care Team Providers Care Salesforce Administrator Name Role Phone Maria A Soria APRN Primary Care Provider [phone] Reason for Visit * Reason Comments Pre-op Exam Encounter Details Date Type Department Care Team (Late st Contact Info) Description 02/22/2025 10:30 AM EDT Office Visit [facility] [address] [place] [phone] Maria A Soria APRN [address] [place] [address] Type 2 diabetes mellitus with [...] 2023 she received a call from the [facility] that they had a match for [...] daily. Continues to be followed closely by [facility] transplant as well as Dr. Stevens at [facility]. * Maria A Soria APRN - 02/25/2025 7:40 AM EDTAssociated Problem(s): Pre- operative clearance Patient with upcoming plans for uterine ablation due to heavy menstrual bleeding. Followed by Dr. Lynch at [facility]. In review of most recent labs [...] therapy for quite some time by her harness worker. Patient has not been on GLP- 1 [...] insulin Patient followed by endocrinology at the [facility]. Patient currently utilizes insulin pump and [...] clearance prior to undergoing uterine ablation at [facility]. Patient is followed by Dr. Lynch. [...] 2023 she received a call from the [facility] that they had a match for [...] daily. Continues to be followed closely by [facility] transplant as well as Dr. Stevens at [facility]. Recent renalfunction shows creatinine of 1.31 and GFR of 54. Patient followed by endocrinology at the [facility]. Patient currently utilizes insulin pump and [...] 10/17/2012 SECTION GASTRIC SLEEVE LAPAROSCOPIC INDUCED 2006 [facility] History reviewed. No pertinent family history. [...] Plan: Patient followed by endocrinology at the [facility]. Patient currently utilizes insulin pump and [...] therapy for quite some time by her harness worker. Patient has not been on GLP- 1 [...] menstrual bleeding. Followed by Dr. Lynch at [facility]. In review of most recent labs and patient's current physical status she would be considered low risk to pursue with this intervention. No past history of difficulty with extubation or adverse reactions to anesthesia. Her glucose is very well-controlled, A1c 5.6% in office today 8. Renal transplant recipient Assessment & Plan: On December 02, 2023 she received a call from the [facility] that they had a match for [...] daily. Continues to be followed closely by [facility] transplant as well as Dr. Stevens at [facility]. BMI is within normal parameters. No [...] Hemoglobin A1C 5.6 4.5 - 5.7 % [facility] Lot Number [id number] [facility] Expiration Date [address] [facility] Blood 02/22/2025 10:2 6 AM EDT Maria A Soria APRN POINT OF CARE TEST ORDERABL ES Final Result [facility]
[address] [place] [address], documented in this encounter Visit Diagnoses Diagnosis [...] recipient documented in this encounter Care Teams Salesforce Administrator Relationship Specialty Start Date End Date Maria A Soria APRN [address] [place] [phone] PCP - General Family Medicine 02/15/23 documented as of this encounter
--- OUTSIDE RECORDS SUMMARY | 2025-03-05 09:26 | XMS_ITS | Encounter Summary ---
Author Organization [employer] ([place], [place], [place], [place]) Address [address] [place] [address] Care Team Providers Care Banquet Attendant Name Role Phone Unavailable Primary Care Provider Unavailabl e Encounter Details Date Type Department Care Team (Late st Contact Info) Description 01/19/2020 Transcribed Document [facility] [place] Family Medicine [address] [place] [address] ProviderLaury MD [address] [place] [address] Social History Tobacco Use Types Packs/Day [...] Laury ProviderMD - 01/19/2020 3:30 PM CDT [address] [address] FREDDIE ARCHER :1990 Visit Time:01/19/2020 [...] pharmacies and retail stores. ??? Eat bland, opiz-eh-qxlqyk foods in small amounts as you are [...] and water are not available, use hand quality assurance qa lab analyst. Make sure that everyone in your household washes their hands frequently. ??? Take rdii-vwe-fuwgelh and prescription medicines only as told by [...] and water are not available, use hand quality assurance qa lab analyst. Make sure that everyone in your [...] 07/30/2016 Document Revised: 12/12/2018 Document Reviewed: 12/12/2018 [id number] Interactive Patient Education ?? 2020 [employer]. Hypoglycemia Hypoglycemia occurs when the level of [...] instructions at home: General instructions ??? Take bspi-dmf-gnblmzw and prescription medicines only as told by [...] 07/04/2006 Document Revised: 12/26/2018 Document Reviewed: 08/06/2016 [id number] Interactive Patient Education ?? 2020 [employer]. Emergency Awareness and Preventative Care STROKE is [...] Assistance with quitting is available by contacting 0-665-AFBA-NOW. This is a free resource providing counseling, [...] range between ( 1.0 and 7.0 ) [place] #: 0.73 K/uL -- Normal range between ( 0.24 and 0.82 ) Eos #: 0.24 K/uL -- Normal range between ( 0.04 and 0.54 ) [place] %: 7.3 % -- Normal range between [...] ) Urine Bilirubin Dipstick: Negative Urine Specific [place]: 1.012 -- Normal range between ( 1.005 [...] was given the opportunity to ask questions. Patient/Hydroelectric Machinery Mechanic Name: Patient/Hydroelectric Machinery Mechanic Signature: Relationship to Patient: Clinician/Hospital Hydroelectric Machinery Mechanic Signature: Date: Electronically signed by Christopher Byrd Conversion Insurance Claims Supervisor Keysha at 11/02/2022 10:10 AM CDT documented in this encounter Plan of Treatment Not on file documented as of this encounter Visit Diagnoses Not on filedocumented in this encounter
--- OUTSIDE RECORDS SUMMARY | 2025-03-05 09:26 | XMS_ITS | Encounter Summary ---
Author Organization [employer] ([place], [place], [place], [place]) Address [address] [place] [address] Care Team Providers Care Necktie Operator Pockets And Pieces Name Role Phone Unavailable Primary Care Provider Unavailabl e Encounter Details Date Type Department Care Team (Late st Contact Info) Description 01/19/2020 Transcribed Document [facility] [place] Family Medicine [address] [place] [address] ProviderLaury MD [address] [place] [address] Social History Tobacco Use Types [...] pharmacies and retail stores. ??? Eat bland, vmev-ah-ddpihf foods in small amounts as you are [...] and water are not available, use hand leak detection engineer. Make sure that everyone in your household washes their hands frequently. ??? Take csbs-cgq-vfwfbxd and prescription medicines only as told by [...] and water are not available, use hand leak detection engineer. Make sure that everyone in your household [...] 07/30/2016 Document Revised: 12/12/2018 Document Reviewed: 12/12/2018 [employer] Interactive Patient Education ? 2020 [employer] Endocrinology Hypoglycemia Hypoglycemia occurs when the [...] instructions at home: General instructions ??? Take oieg-fdd-cnhzoss and prescription medicines only as told by [...] 07/04/2006 Document Revised: 12/26/2018 Document Reviewed: 08/06/2016 [employer] Interactive Patient Education ? 2020 [employer]. documented in this encounter Plan of Treatment Not on file documented as of this encounter Visit Diagnoses Not on filedocumented in this encounter
--- OUTSIDE RECORDS SUMMARY | 2025-03-05 09:26 | XMS_ITS | Encounter Summary ---
[facility] Address [address] [place] [address] Care Team Providers Care Obstetrics Scrub Nurse Name Role Phone Maria A Soria APRN Primary Care Provider [phone] Reason for Visit * Reason Comments Med Refill Encounter Details Date Type Department Care Team (Late st Contact Info) Description 02/04/2025 Refill [facility] [address] [place] [phone] Maria A Soria APRN [address] [place], [place] [phone] Social History Tobacco Use Types Packs/Day Years [...] on filedocumented in this encounter Care Teams Obstetrics Scrub Nurse Relationship Specialty Start Date End Date Maria A Soria APRN [address] [place] [phone] PCP - General Family Medicine 02/15/23 documented as of this encounter
--- OUTSIDE RECORDS SUMMARY | 2025-03-05 09:26 | XMS_ITS | Encounter Summary ---
Author Organization [employer] ([place], [place], [place], [place]) Address [address] [place] [address] Care Team Providers Care Auditor Appraiser Name Role Phone Unavailable Primary Care Provider Unavailabl e Encounter Details Date Type Department Care Team (Late st Contact Info) Description 09/15/2021 Transcribed Document [facility] [place] [address] [place] [address] ProviderLaury MD [address] [place] [address] Social History Tobacco Use Types [...] Date Blaine rded Speak language other than Algerian at home Not on file 07/30/2023 Want [...] - Historical Provider, - 09/15/2021 11:12 AM MEDICAL DERMATOLOGIST Broset Violence Assessment Entered On: 09/15/2021 12:44 EST Performed On: 09/15/2021 12:43 EST by AUSTIN AVILES RN Broset Violence Assessment Broset Violence Checklist of Symptoms : None Broset Violence Symptoms Subtotal : 0 Broset Violence Symptoms Indicator : Low risk (0) AUSTIN AVILES RN - 09/15/2021 12:43 EST Electronically signed by Zuleyka Byrd Conversion Photographic Intelligence Officer Cerner at 11/02/2022 10:10 AM CDT documented in this encounter Plan of Treatment Not on file documented as of this encounter Visit Diagnoses Not on filedocumented in this encounter
--- OUTSIDE RECORDS SUMMARY | 2025-03-05 09:26 | XMS_ITS | Encounter Summary ---
Author Organization [employer] ([place], [place], [place], [place]) Address [address] [place] [address] Care Team Providers Care Storehouse Clerk Name Role Phone Unavailable Primary Care Provider Unavailabl e Encounter Details Date Type Department Care Team (Late st Contact Info) Description 01/19/2020 Transcribed Document [facility] [place] Family Medicine [address] [place] [address] ProviderLaury MD [address] [place] [address] [id number] Social History Tobacco Use Types Packs/Day Years [...] Physician Requested for Consult : LARRY MARTINES MD-[facility] Physician Covering for Consult : LARRY MARTINES MD-BRANDEE Date and Time Call Returned : 01/19/2020 9:04 EDT ASPEN CROWDER - 01/19/2020 9:04 EDT Electronically signed by Rochelle [facility] Conversion Cartridge Maker Cerner at 11/02/2022 10:05 AM CDT documented in this encounter Plan of Treatment Not on file documented as of this encounter Visit Diagnoses Not on filedocumented in this encounter
--- OUTSIDE RECORDS SUMMARY | 2025-03-05 09:26 | XMS_ITS | Encounter Summary ---
Author Organization [facility] Address [address] [place] [address] Care Team Providers Care Informal Waiter/Waitress Name Role Phone Jaquan Conley MD Primary Care Provider + [phone] Encounter Details Date Type Department Care Team (Late st Contact Info) Description 10/18/2018 [facility] Historical OTTR [address] [place] [address] Yris Schwarz, RN [facility]-TRANSPLANT ADMINISTRATION Social History [...] in nephrology clinic note that she left [facility] after admission for increasing creatinine and e. coli UTI, consider starting with social work. She also initially stated didn't want to pursue kidney transplant if she couldn't get a pancreas at same time. * Progress Notes - Hilaria Hsu - 08/16/2018 9:25 AM EST Start eval with ; pt left [facility] per [facility] records. Pt has been 5 times; has 2 children, one of which is in [place] with her latest . documented in this encounter Plan of Treatment Not on file documented as of this encounter Visit Diagnoses Not on filedocumented in this encounter Care Teams Informal Waiter/Waitress Relationship Specialty Start Date End Date Jaquan Conley MD [address] [place] [address] PCP - General 11/28/20 documented as of this encounter
--- OUTSIDE RECORDS SUMMARY | 2025-03-05 09:26 | XMS_ITS | Encounter Summary ---
Author Organization [employer] ([place], [place], [place], [place]) Address [address] [place] [address] Care Team Providers Care Band Singer Name Role Phone Unavailable Primary Care Provider Unavailabl e Encounter Details Date Type Department Care Team (Late st Contact Info) Description 01/19/2020 Transcribed Document [facility] Family Medicine [address] [place] [address] ProviderLaury MD [address] [place] [address] Social History Tobacco Use Types Packs/Day [...]
--- OUTSIDE RECORDS SUMMARY | 2025-03-05 09:26 | XMS_ITS | Encounter Summary ---
Author Organization [employer] ([place], [place], [place], [place]) Address [address] [place] [address] Care Team Providers Care Transformer Shop Supervisor Name Role Phone Unavailable Primary Care Provider Unavailabl e Encounter Details Date Type Department Care Team (Late st Contact Info) Description 01/19/2020 Transcribed Document [facility] [place] Family Medicine [address] [place] [address] ProviderLaury MD [address] [place] [address] Social History Tobacco Use Types [...] 01/19/2020 15:30 EDT Electronically signed by Rochelle [facility] Conversion Bull Gang Worker Cerner at 11/02/2022 10:02 AM CDT documented in this encounter Plan of Treatment Not on file documented as of this encounter Visit Diagnoses Not on filedocumented in this encounter
--- OUTSIDE RECORDS SUMMARY | 2025-03-05 09:26 | XMS_ITS | Encounter Summary ---
Author Organization [employer] ([place], [place], [place], [place]) Address [address] [place] [address] Care Team Providers Care Chemical Process Equipment Operator Name Role Phone Unavailable Primary Care Provider Unavailabl e Encounter Details Date Type Department Care Team (Late st Contact Info) Description 01/19/2020 Transcribed Document [facility] [place] Family Medicine [address] [place] [address] ProviderLaury MD [address] [place] [address] Social History Tobacco Use Types Packs/Day [...] - 01/19/2020 16:16 EDT Electronically signed by [facility] Conversion Vending Manager Cerner at 11/02/2022 9:56 AM CDT documented in this encounter Plan of Treatment Not on file documented as of this encounter Visit Diagnoses Not on filedocumented in this encounter
--- OUTSIDE RECORDS SUMMARY | 2025-03-05 09:26 | XMS_ITS | Encounter Summary ---
Author Organization [employer] ([place], [place], [place], [place]) Address [address] [place] [address] Care Team Providers Care American History Teacher Name Role Phone Unavailable Primary Care Provider Unavailabl e Encounter Details Date Type Department Care Team (Late st Contact Info) Description 01/19/2020 Transcribed Document [facility] [place] [facility] Medicine [facility] [place] [address] ProviderLaury MD [address] [place] [address] [id number] Social History Tobacco Use Types Packs/Day Years [...] documented in chart. Surgical history: section x2 ([id number]). Dilation and curettage (57708183). Tubal ligation ([id number]). wisdom teeth. kidney biopsy. EGD. Stomach biopsy. Gastric sleeve ([id number]).. Family history: Not significant, No family history [...] EDT Height Source Stated Height Entry Format [place] Height/Length, SAMOAN (ft) 5 ft Height/Length SAMOAN 5 Inch CLINICALHEIGHT 165.1 cm [place] Body Weight 56.59 kg Weight Source, ED Standing scale Weight Entry Format [place] Weight [place] lb 230.8 lb CLINICALWEIGHT 104.91 kg Body [...] 39.0 % Lymph # 3.92 K/uL HI Ada % 7.3 % Ada # 0.73 K/uL Eos % 2.4 % Eos # 0.24 K/uL Baso % 0.4 % Baso # 0.04 K/uL Slide Review No IG# 0 x10(3)/uL IG% 0 % . Notes: Preliminary ReportNAME:FREDDIE ARCHER / SEX:1990 / FemaleMRN / ACC#:[id number] / [id number] ORDERING PHYSICIAN:Ordering Provider, UpdateEXAM REQUESTED:[id number]--JG ABDOMEN & PELVIS W/O CONTRAST [facility]IOLOGIST NAME:MD Ashely, [facility]IN[facility]:status post gastric sleeve surgery on [...] No rash, no cyanosis, capillary refill brisk HEALTH SERVICES DIRECTOR: Awake alert oriented ??4, nonfocal exam Psych: [...]
--- OUTSIDE RECORDS SUMMARY | 2025-03-05 09:26 | XMS_ITS | Encounter Summary ---
[facility] Address [address] [place] [address] Care Team Providers Care Social Service Technician Name Role Phone Maria A Soria APRN Primary Care Provider [phone] Reason for Visit * Reason Comments Med Refill Encounter Details Date Type Department Care Team (Late st Contact Info) Description 02/03/2025 Refill [facility] [address] [place] [phone] Maria A Soria APRN [address] [place], [place] [phone] Social History Tobacco Use Types Packs/Day Years [...] on filedocumented in this encounter Care Teams Social Service Technician Relationship Specialty Start Date End Date Maria A Soria APRN [address] [place] [phone] PCP - General Family Medicine 02/15/23 documented as of this encounter
--- OUTSIDE RECORDS SUMMARY | 2025-03-05 09:26 | XMS_ITS | Encounter Summary ---
Author Organization [employer] ([place], [place], [place], [place]) Address [address] [place] [address] Care Team Providers Care International Representative Name Role Phone Unavailable Primary Care Provider Unavailabl e Encounter Details Date Type Department Care Team (Late st Contact Info) Description 01/19/2020 Transcribed Document [facility] [place] Family Medicine [address] [place] [address] ProviderLaury MD [address] [place] [address] Social History Tobacco Use Types Packs/Day [...] Obtained From : Patient Primary Language : Wallisian Preferred Communication Mode : Verbal Communication Barrier : None Retail Presentation Specialist Needed : No OCTAVIO BRAND RN - [...] Scale Risk Level : 0-24 Low Risk Switzer Fall Interventions : Adequate lighting, Bed in [...] Source : Stated Height Entry Format : [place] Height, Feet : 5 ft(Converted to: 152 cm, 60 Inch) Height, Inches : 5 Inch(Converted to: 0 ft 5 Inch, 12.70 cm) Clinical Height : 165.1 cm Weight Source : Standing scale Weight Entry Format : [place] Clinical Dosing Weight : 104.91 kg Weight, Pounds : 230.8 lb Body Surface Area (BSA) : 2.1 m2 Body Mass Index : 38.5 kg/m2 (HI) [place] Body Weight : 57 kg OCTAVIO BRAND [...] OCTAVIO BRAND RN - 01/19/2020 8:36 EDT [place] Suicide Severity Rating Scale (C-SSRS) CSSRS Past [...]
--- OUTSIDE RECORDS SUMMARY | 2025-03-05 09:26 | XMS_ITS | Encounter Summary ---
Author Organization [facility] Address [address] [place] [phone] Care Team Providers Care Senior Technical Project Manager Name Role Phone Maria A Soria APRN Primary Care Provider [phone]- [phone] Encounter Details Date Type Department Care Team [...] on filedocumented in this encounter Care Teams Senior Technical Project Manager Relationship Specialty Start Date End Date Maria A Soria APRN [address] [place] [address] PCP - General Family Medicine 02/15/23 documented as of this encounter
--- OUTSIDE RECORDS SUMMARY | 2025-03-05 09:26 | XMS_ITS | Encounter Summary ---
Author Organization [employer] ([place], [place], [place], [place]) Address [address] [place] [address] Care Team Providers Care Airport Maintenance Chief Name Role Phone Unavailable Primary Care Provider Unavailabl e Encounter Details Date Type Department Care Team (Late st Contact Info) Description 01/19/2020 Transcribed Document [facility] [place] Family Medicine [address] [place] [address] ProviderLaury MD [address] [place] [address] Social History Tobacco Use Types Packs/Day [...] On: 01/19/2020 8:59 EDT by CRISTOBAL HANSEN RN-Aircraft Power Plant Assembler Readmission Questionnaire Patient Status at Discharge, Previous Admission : Inpatient Did Patient Leave AMA Pre Admission : No Readmission : Unplanned Readmission Reason: : Patient/caregiver decided on their own to come to ED ED Visit Between Hospitalization : No DC Destination, Previous Admission : Discharge To Care Management: Home/Residential/Skilled Nursing or Self Care - (01/19/20 08:56:00) If [...] Readm Questionnaire Was Readm Preventable : No CRISTOABL HANSEN RN-Aircraft Power Plant Assembler - 01/19/2020 8:59 EDT Electronically signed by Rochelle [facility] Conversion Business Education Instructor Cerner at 11/02/2022 9:56 AM CDT documented in this encounter Plan of Treatment Not on file documented as of this encounter Visit Diagnoses Not on filedocumented in this encounter
--- OUTSIDE RECORDS SUMMARY | 2025-03-05 09:26 | XMS_ITS | Encounter Summary ---
Author Organization [employer] ([place], [place], [place], [place]) Address [address] [place] [address] Care Team Providers Care Regional Construction Manager Name Role Phone Unavailable Primary Care Provider Unavailabl e Encounter Details Date Type Department Care Team (Late st Contact Info) Description 01/18/2020 Transcribed Document [facility] [place] Medicine [address] [place] [address] ProviderLaury MD [address] [place] [address] Social History Tobacco Use Types [...] EDT DCP GENERIC CODE Tracking Group : [facility] Tracking Acuity : 2 - [...] Problems(Active) At risk for sleep apnea (IMO :60392297 ) Name of Problem: At risk for sleep apnea ; Recorder: SYSTEM, SYSTEM; Confirmation: Confirmed ; Classification: Medical ; Code: [id number] ; Last Updated: 08/24/2019 10:25 EST ; Life Cycle Date: 08/24/2019 ; Life Cycle Status: Active ; Vocabulary: IMO DM (diabetes mellitus) (SNOMED CT :536645057 ) Name of Problem: DM (diabetes mellitus) ; Recorder: ANGE Green RN; Confirmation: Confirmed ; Classification: Medical ; Code: 989420032 ; Contributor System: PowerChart ; Last Updated: 08/24/2019 10:17 EST ; Life Cycle Date: 08/24/2019 ; Life Cycle Status: Active ; Vocabulary: SNOMED CT HTN (hypertension) (SNOMED CT :4787486909 ) Name of Problem: HTN (hypertension) ; Recorder: ANGE Green RN; Confirmation: Confirmed ; Classification: Medical ; Code: [id number] ; Contributor System: PowerChart ; Last Updated: 08/24/2019 10:16 EST ; Life Cycle Date: 08/24/2019 ; Life Cycle Status: Active ; Vocabulary: SNOMED CT Hyperkalemia (SNOMED CT :27536941 ) Name of Problem: Hyperkalemia ; Recorder: Noelle Umanzor Rn; Confirmation: Confirmed ; Classification: Medical ; Code: 92180581 ; Contributor System: PowerChart ; Last Updated: 10/03/2019 10:52 EDT ; Life Cycle Date: 10/03/2019 ; Life Cycle Status: Active ; Vocabulary: SNOMED CT Hyperlipemia (SNOMED CT :14245698 ) Name of Problem: Hyperlipemia ; Recorder: ANGE Green RN; Confirmation: Confirmed ; Classification: Medical ; Code: 73970479 ; Contributor System: PowerChart ; Last Updated: 08/24/2019 10:17 EST ; Life Cycle Date: 08/24/2019 ; Life Cycle Status: Active ; Vocabulary: SNOMED CT Kidney disease (SNOMED CT :614274363 ) Name of Problem: Kidney disease ; Recorder: ANGE Green RN; Confirmation: Confirmed ; Classification: Medical ; Code: 258172093 ; Contributor System: PowerChart ; Last Updated: 08/24/2019 10:17 EST ; Life Cycle Date: 08/24/2019 ; Life Cycle Status: Active ; Vocabulary: SNOMED CT Neuropathy (SNOMED CT :9797740927 ) Name of Problem: Neuropathy ; Recorder: ANGE Green RN; Confirmation: Confirmed ; Classification: Medical ; Code: 8138016746 ; Contributor System: PowerChart ; Last Updated: 08/24/2019 10:18 EST ; Life Cycle Date: 08/24/2019 ; Life Cycle Status: Active ; Vocabulary: SNOMED CT Retinopathy (SNOMED CT :07081019 ) Name of Problem: Retinopathy ; Recorder: Noelle Umanzor Rn; Confirmation: Confirmed ; Classification: Medical ; Code: 52583038 ; Contributor System: PowerChart ; Last Updated: 10/03/2019 10:52 EDT ; Life Cycle Date: 10/03/2019 ; Life Cycle Status: Active ; Vocabulary: SNOMED CT Diagnoses(Active) Dehydration Date: 01/18/2020 ; Diagnosis Type: Reason For Visit ; Confirmation: Complaint of ; Clinical Dx: Dehydration ; Classification: Medical ; Clinical Service: Emergency medicine ; Code: PNED ; Probability: 0 ; Diagnosis Code: [id number] Vomiting Date: 01/18/2020 ; Diagnosis Type: Reason For Visit ; Confirmation: Complaint of ; Clinical Dx: Vomiting ; Classification: Medical ; Clinical Service: Emergency medicine ; Code: PNED ; Probability: 0 ; Diagnosis Code: [id number] ED Height and Weight Height Source : Stated Height Entry Format : [place] Height, Feet : 5 ft(Converted to: 152 cm, 60 Inch) Height, Inches : 5 Inch(Converted to: 0 ft 5 Inch, 12.70 cm) Clinical Height : 165.1 cm Weight Source, ED : Standing scale Weight Entry Format : [place] Weight, Pounds : 230.8 lb Clinical Dosing Weight : 104.91 kg Body Surface Area (BSA) : 2.1 m2 Body Mass Index : 38.5 kg/m2 (HI) [place] Body Weight (IBW) : 56.59 kg MARKIE PANG RN - 01/18/2020 20:31 EDT documented in this encounter Plan of Treatment Not on file documented as of this encounter Visit Diagnoses Not on filedocumented in this encounter
--- OUTSIDE RECORDS SUMMARY | 2025-03-05 09:26 | XMS_ITS | Encounter Summary ---
Author Organization [facility] Address [address] [id number] Care Team Providers Care Grip Name Role Phone Maria A Soria TREE INSPECTOR Primary Care Provider [phone] Encounter Details Date Type Department Care Team (Late st Contact Info) Description 02/08/2025 Results Follow-Up [facility] [address] [place] [phone] Maria A Soria, TREE INSPECTOR [address] [place] [address] Social History Tobacco Use Types [...] on filedocumented in this encounter Care Teams Grip Relationship Specialty Start Date End Date Maria A Soria, ANJU [address] [id number] PCP - General Family Medicine 02/15/23 documented as of this encounter
--- OUTSIDE RECORDS SUMMARY | 2025-03-05 09:27 | XMS_ITS | Encounter Summary ---
Author Organization [employer] ([place], [place], [place], [place]) Address [address] [place] [address] Care Team Providers Care Rubber Goods Supervisor Name Role Phone Unavailable Primary Care Provider Unavailabl e Encounter Details Date Type Department Care Team (Late st Contact Info) Description 01/05/2020 Transcribed Document [facility] [place] [address] [place] [address] ProviderLaury MD [address] [place] [address] Social History Tobacco Use Types [...] your book, please call the Center at [phone]. documented in this encounter Plan of Treatment Not on file documented as of this encounter Visit Diagnoses Not on filedocumented in this encounter
--- OUTSIDE RECORDS SUMMARY | 2025-03-05 09:27 | XMS_ITS | Encounter Summary ---
Author Organization [employer] ([place], [place], [place], [place]) Address [address] [place] [address] Care Team Providers Care House Painting Instructor Name Role Phone Unavailable Primary Care Provider Unavailabl e Encounter Details Date Type Department Care Team (Late st Contact Info) Description 09/26/2018 Transcribed Document [facility] [place] [address] [place] [address] ProviderLaury MD [address] [place] [address] Social History Tobacco Use Types Packs/Day [...] Laury ProviderMD - 09/26/2018 10:56 PM CDT [facility] Emergency Department Depart Summary PERSON INFORMATION Name Crystal Archer Age 28 Years 1990 Sex Female Language PCP Marital Status Phone [id number] Visit Id Visit Reason Specialty Enc Type Emergency Med Service [id number] Checkout 09/26/2018 18:56:15 Checkin 09/26/2018 16:44:00 Acuity 3 - Urgent [facility] Dispo Type Arrival 09/26/2018 16:44:00 Reg Status LOS 000 02:12 Address: [address] [place] [address] [place] [address] POWERFORMS PHYSICIAN NOTES VITALS INFORMATION Vital Sign Triage Temp 98.7 Temp Route Oral/Mouth Pulse Rate 102 Respiratory Rate 20 Blood Pressure 140/ 72 LOCATION INFORMATION Arrival Nurse Unit Room Bed 09/26/2018 16:44:00 [facility] ED Waitroom ([facility]) 09/26/2018 16:50:17 [facility] ED 3 09/26/2018 18:56:15 [facility] ED Checkout ([facility]) MEDICAL INFORMATION Allergy Info: No Known Allergies PATIENT EDUCATION INFORMATION Instructions: Hematuria, Adult Follow up: With: Address: When: Follow up with primary care provider Within 5 to 7 days DIAGNOSIS documented in this encounter Plan of Treatment Not on file documented as of this encounter Visit Diagnoses Not on filedocumented in this encounter
--- OUTSIDE RECORDS SUMMARY | 2025-03-05 09:27 | XMS_ITS | Encounter Summary ---
Author Organization [facility] Address [address] [id number] Care Team Providers Care Personal Chef Name Role Phone Maria A Soria APRN Primary Care Provider [phone] Encounter Details Date Type Department Care Team [...] on filedocumented in this encounter Care Teams Personal Chef Relationship Specialty Start Date End Date Maria A Soria APRN [address] [place] [address] PCP - General Family Medicine 02/15/23 documented as of this encounter
--- OUTSIDE RECORDS SUMMARY | 2025-03-05 09:27 | XMS_ITS | Encounter Summary ---
Author Organization [employer] ([place], [place], [place], [place]) Address [address] [place] [address] Care Team Providers Care Script Coordinator Name Role Phone Unavailable Primary Care Provider Unavailabl e Encounter Details Date Type Department Care Team (Late st Contact Info) Description 01/08/[address] [facility] [place] Family Medicine [address] [place] [address] ProviderLaury MD [address] [place] [address] Social History Tobacco Use Types Packs/Day [...] Laury ProviderMD - 01/08/2019 12:31 AM CDT [facility] Emergency Department Depart Summary PERSON INFORMATION Name Crystal Archer Age 28 Years 1990 Sex Female Language PCP Marital Status Phone [phone] Visit Id Visit Reason Specialty Enc Type Emergency Med Service Referred by Track Group [facility] Discharge Tracking Id [id number] Checkout 01/07/2019 20:31:56 Checkin 01/07/2019 18:52:00 Acuity 3 - Urgent [facility] Dispo Type Arrival 01/07/2019 18:52:00 Reg Status LOS 000 01:39 Address: [address] [place] [address] [place] [address] POWERFORMS PHYSICIAN NOTES VITALS INFORMATION Vital Sign Triage Temp 99.4 Temp Route Pulse Rate 96 Respiratory Rate 16 Blood Pressure 137/ 85 LOCATION INFORMATION Arrival Nurse Unit Room Bed 01/07/2019 18:52:00 [facility] ED Waitroom (K) 01/07/2019 20:31:56 [facility] ED Checkout (K) MEDICAL INFORMATION Allergy Info: NSAIDs PATIENT EDUCATION INFORMATION Instructions: Follow up: DIAGNOSIS documented in this encounter Plan of Treatment Not on file documented as of this encounter Visit Diagnoses Not on filedocumented in this encounter
--- OUTSIDE RECORDS SUMMARY | 2025-03-05 09:27 | XMS_ITS | Clinical Summary ---
Author Organization [facility] Address [address] [facility], [address] [place] [address] Care Team Providers Care Overnight Caregiver Name Role Phone Jaquan Conley MD Primary Care Provider [phone] Social History Tobacco Use Types Packs/Day Years Used Date Smoking Tobacco: Never Assessed Comments Unknown Sex and Gender Information Value Date Recorded Sex Assigned at Not on file Legal Sex Female 11:22 AM EDT Gender Identity Not on file Sexual Orientation Not on file Plan of Treatment Not on file Insurance [facility] Care Teams Overnight Caregiver Relationship Specialty Start Date End Date Jaquan Conley MD [address] [place] [address] PCP - General Internal Medicine 01/09/21
--- OUTSIDE RECORDS SUMMARY | 2025-03-05 09:27 | XMS_ITS | Encounter Summary ---
Author Organization [employer] ([place], [place], [place], [place]) Address [address] [place] [address] Care Team Providers Care Asp Net Developer Name Role Phone Unavailable Primary Care Provider Unavailabl e Encounter Details Date Type Department Care Team (Late st Contact Info) Description 08/24/2019 Transcribed Document [facility] [place] [address] [place] [address] ProviderLaury MD [address] [place] [address] Social History Tobacco Use Types Packs/Day [...] - Laury ProviderMD - 08/24/2019 2:30 PM FROZEN MEAT CUTTER [facility] PreOp Summary Primary Physician: LARRY MARTINES MD-SUR Finalized Date/Time: 08/24/19 10:30:24 Pt. Name: FREDDIE RUGGIEROGARCIA /Sex: 1990 Female Med Rec #: [id number] Physician: LARRY MARTINES MD-SUR Financial #: [id number] Pt. Type: O Room/Bed: [facility]/ Admit/Disch: 08/24/19 09:42:00 - Institution: [facility] PreOp Case Times Entry 1 In Preop 08/24/19 10:06:00 Ready for Holding n/a Room Patient Ready for 08/24/19 10:30:00 Surgery Patient Out of Preop 08/24/19 10:30:00 Patient Out of n/a Holding Room [facility] PreOp Case Times Audit 08/24/19 10:30:23 Facilities Flight Check Pilot: GEOVANNA Modifier: HOLMESTJ <+> 1 Patient Out of Preop <+> 1 Patient Ready for Surgery Finalized By: ANGE Green RN Document Signatures Signed By: ANGE Green RN 08/24/19 10:30 Electronically signed by Rochelle [facility] Conversion Clinical Assoc Cerner at 11/02/2022 10:00 AM CDT documented in this encounter Plan of Treatment Not on file documented as of this encounter Visit Diagnoses Not on filedocumented in this encounter
--- OUTSIDE RECORDS SUMMARY | 2025-03-05 09:27 | XMS_ITS | Encounter Summary ---
Author Organization [employer] ([place], [place], [place], [place]) Address [address] [place] [address] Care Team Providers Care Review Nurse Name Role Phone Unavailable Primary Care Provider Unavailabl e Encounter Details Date Type Department Care Team (Late st Contact Info) Description 11/19/2018 Transcribed Document [facility] [place] Family Medicine [address] [place] [address] ProviderLaury MD [address] [place] [address] Social History Tobacco Use Types Packs/Day [...] Laury ProviderMD - 11/19/2018 1:52 AM CDT [facility] ADDRESS [place], [place] [phone] Name:Crystal Archer Visit Date:11/18/2018 20:06:00 Emergency Department Care Providers: Physician: Clara Elias Phys Asst Physician: Our doctors and staff appreciate your choice of [facility] for your emergency medical care. Read these instructions carefully. Please call us if you have any questions about your medical problem. [facility] Emergency Department [phone] [facility] Emergency Department [phone] [facility] Emergency Department [phone] Patient Education Materials Gianni Crystal Jones has [...] start to feel better. ??? Only take gczh-vqh-cmnzqvw or prescription medicines for pain, discomfort, or [...] 01/29/2014 Elsevier Interactive Patient Education ? 2017 [employer] Obstetrics and Gynecology Urinary Tract Infection, Adult Introduction A urinary tract infection (UTI) is an infection of any part of the urinary tract. The urinary tract includes the: ??? Kidneys. ??? Ureters. ??? Bladder. ??? Urethra. These organs make, store, and get rid of pee (urine) in the body. Follow these instructions at home: ??? Take fiip-yaz-ptupkfb and prescription medicines only as told by [...] to pick them up o [facility] # [phone] [facility] # [phone] o [facility] # [phone] ?? If you had cultures done and [...] quit. o National Network of Tobacco Cessation [id number] o [employer] o [employer] [phone] o Sai/Manuel Mccray [phone] FINANCIAL INFORMATION ?? [facility] provides financial counseling to anyone who requests our services. ?? Emergency Physicians are independently contracted to provide your care. You will receive a bill for the care provided to you by the Physician and/or the Physician Cyber Security Administrator. This will be a separate bill from [...] Patient Education Materials: ENT Otitis Media, Adult, Qyqw-kq-Eaja Obstetrics and Gynecology Urinary Tract Infection, Adult, Sxap-bq-Dqxr Follow-Up Instructions: Follow Up With: Where: When: [...] as recommended Patient Signature / or Patient Financial Investment Manager Provider Signature Date documented in this encounter Plan of Treatment Not on file documented as of this encounter Visit Diagnoses Not on filedocumented in this encounter
--- OUTSIDE RECORDS SUMMARY | 2025-03-05 09:27 | XMS_ITS | Encounter Summary ---
Author Organization [facility] Address [address], [address] [place] [address] Care Team Providers Care Director Of Hemophilia Name Role Phone Jaquan Conley MD Primary Care Provider [phone] Reason for Referral * Imaging (Emergency) - Closed Specialty Diagnoses / Procedures Referred By Contac t Referred To Contact Radiology Diagnoses Urinary retention Procedures US RENAL COMPLETE Yue Abdalla APRN [address] [place] [address] Phone: tel: Referral ID Status Reason Start Date Expiration Date Visits Re quested Visits Authorized [id number] Closed 01/09/2021 01/09/2022 1 1 Encounter Details Date Type Department Care Team (Latest Contact Info) Description 01/09/2021 Transcribe Orders [facility] PRE ACCESS [address] [place] [address] Yue Abdalla APRN [address] [place] [address] Urinary retention (Primary Dx) Social [...] abnormality of the kidneys or urinary bladder. [facility] Rm [facility]ERAL HOME MANAGER [facility] [place] ORDERABLES Final Result documented in this encounter Visit Diagnoses Diagnosis Urinary retention- Primary Retention of urine, unspecified Urinary retention Retention of urine, unspecified documented in this encounter Care Teams Director Of Hemophilia Relationship Specialty Start Date End Date Jaquan Conley MD [address] [place] [address] PCP - General Internal Medicine 01/09/21 documented as of this encounter
--- OUTSIDE RECORDS SUMMARY | 2025-03-05 09:27 | XMS_ITS | Encounter Summary ---
Author Organization [facility] Address [address] 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
--- OUTSIDE RECORDS SUMMARY | 2025-03-05 09:27 | XMS_ITS | Encounter Summary ---
Author Organization [employer] ([place], [place], [place], [place]) Address [address] [place] [address] Care Team Providers Care Sodium Chlorite Operator Name Role Phone Unavailable Primary Care Provider Unavailabl e Encounter Details Date Type Department Care Team (Late st Contact Info) Description 12/24/2018 Transcribed Document [facility] [place] [address] [place] [address] ProviderLaury MD [address] [place] [address] Social History Tobacco Use Types Packs/Day [...] Laury ProviderMD - 12/24/2018 7:19 PM CDT [facility] Emergency Department Depart Summary PERSON INFORMATION Name Crystal Archer Age 28 Years 1990 Sex Female Language PCP Marital Status Phone [phone] Visit Id Visit Reason Specialty Enc Type Emergency Med Service Referred by Track Group [facility] Discharge Tracking Id [id number] Checkout 12/24/2018 15:19:27 Checkin 12/24/2018 15:01:00 Acuity 4 - Non-urgent [facility] Dispo Type Arrival 12/24/2018 15:01:00 Reg Status LOS 000 00:18 Address: [address] [place], [place] [address] [address] POWERFORMS PHYSICIAN NOTES VITALS INFORMATION Vital Sign Triage Temp 98.6 Temp Route Oral/Mouth Pulse Rate 101 Respiratory Rate 20 Blood Pressure 179/ 89 LOCATION INFORMATION Arrival Nurse Unit Room Bed 12/24/2018 15:01:00 [facility] ED Waitroom ([facility]) 12/24/2018 15:04:15 [facility] ED 1 12/24/2018 15:19:27 [facility] ED Checkout ([facility]) MEDICAL INFORMATION Allergy Info: No [...]
--- OUTSIDE RECORDS SUMMARY | 2025-03-05 09:27 | XMS_ITS | Encounter Summary ---
Author Organization [employer] ([place], [place], [place]) Address [address] [place] [address] Care Team Providers Care It Risk Advisor Name Role Phone Unavailable Primary Care Provider Unavailabl e Encounter Details Date Type Department Care Team (Late st Contact Info) Description 10/31/2018 Transcribed Document [facility] Family Medicine [address] [place] [address] ProviderLaury MD [address] [place] [address] Social History Tobacco Use Types Packs/Day [...] Complaint Primary Care Provider : Rema Ferreira, Global Climate Change Researcher Accompanied By : Family/Spouse/SO Arrival Mode : [...] : No GI 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 : No Plain Goods Hemmer Hx : No Heart Attack : No [...] Preferred Communication Mode : Verbal Languages : Ivorian Child/Parent Domestic Concerns : None Threats of Suicide : No Jasen summer10/30/2018 20:29 EDT Height and Weight Height Source : Stated Height Entry Format : [place] Height, Inches : 65 Inch(Converted to: 5 ft 5 Inch, 165.10 cm) Clinical Height : 165.1 cm Weight Source : Stated Type of Weight Measurement Est : [place] Weight, est lb : 214 lb Estimated Clinical Dosing Weight : 97.27 kg [place] Body Weight : 57 kg Body Surface [...] ; Status: Processing ; Ordered As Mnemonic: [place] 5 mg-325 mg oral tablet ; Simple [...]
--- OUTSIDE RECORDS SUMMARY | 2025-03-05 09:27 | XMS_ITS | Encounter Summary ---
Author Organization [employer] ([place], [place]) Address [address] [place] [address] Care Team Providers Care Parquet Floor Layer'S Helper Name Role Phone Unavailable Primary Care Provider Unavailabl e Encounter Details Date Type Department Care Team (Late st Contact Info) Description 01/05/2020 Transcribed Document [facility] [place] [address] [place] [address] ProviderLaury MD [address] [place] [address] Social History Tobacco Use Types Packs/Day [...]
--- OUTSIDE RECORDS SUMMARY | 2025-03-05 09:27 | XMS_ITS | Encounter Summary ---
Author Organization [employer] ([place], [place], [place]) Address [address] [place] [address] Care Team Providers Care Chemical Laboratory Chief Name Role Phone Unavailable Primary Care Provider Unavailabl e Encounter Details Date Type Department Care Team (Late st Contact Info) Description 12/24/2018 Transcribed Document [facility] [place] Family Medicine [address] [place] [address] ProviderLaury MD [address] [place] [address] Social History Tobacco Use Types Packs/Day [...] Rash Primary Care Provider : Rema Ferreira, Snowmobile Mechanic Accompanied By : Family/Spouse/SO Arrival Mode : [...] : No GI 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 : No Firer Marine Hx : No Heart Attack : No [...] Source : Stated Height Entry Format : [place] Height, Inches : 65 Inch(Converted to: 5 ft 5 Inch, 165.10 cm) Clinical Height : 165.1 cm Weight Source : Bed scale Weight Entry Format : [place] Weight, Pounds : 221 lb Clinical Dosing Weight : 100.45 kg Body Surface Area-(BSA) : 2.15 m2 Body Mass Index : 36.9 kg/m2 (HI) [place] Body Weight : 57 kg Maddi [...]
--- OUTSIDE RECORDS SUMMARY | 2025-03-05 09:27 | XMS_ITS | Encounter Summary ---
Author Organization [employer] ([place], [place], [place], [place]) Address [address] [place] [address] Care Team Providers Care Harvesting Manager Name Role Phone Unavailable Primary Care Provider Unavailabl e Encounter Details Date Type Department Care Team (Late st Contact Info) Description 09/07/2018 Transcribed Document [facility] Family Medicine [address] [place] [address] ProviderLaury MD [address] [place] [address] Social History Tobacco Use Types Packs/Day [...] - Laury ProviderMD - 09/07/2018 9:31 PM INFANTRY WEAPONS OFFICER [facility] Emergency Department Depart Summary PERSON INFORMATION Name Crystal Archer Age 28 Years 1990 Sex Female Language PCP Marital Status Phone [phone] Visit Id Visit Reason Specialty Enc Type Emergency Med Service Referred by Track Group [facility] [place] Discharge Tracking Id [id number] Checkout 09/07/2018 16:31:16 Checkin 09/07/2018 15:20:00 Acuity 4 - Non-urgent [facility] Dispo Type Arrival 09/07/2018 15:20:00 Reg Status LOS 000 01:11 Address: [address] [place] [address] [place] [address] POWERFORMS PHYSICIAN NOTES VITALS INFORMATION Vital Sign Triage Temp 99.1 Temp Route Oral/Mouth Pulse Rate 61 Respiratory Rate 20 Blood Pressure 145/ 91 LOCATION INFORMATION Arrival Nurse Unit Room Bed 09/07/2018 15:20:00 [facility] ED Waitroom ([facility]) 09/07/2018 15:34:51 [facility] ED 9 09/07/2018 16:31:16 [facility] ED Checkout ([facility]) MEDICAL INFORMATION Allergy Info: No Known [...]
--- OUTSIDE RECORDS SUMMARY | 2025-03-05 09:27 | XMS_ITS | Encounter Summary ---
Author Organization [employer] ([place], [place], [place], [place]) Address [address] [place] [address] Care Team Providers Care Mold Stamper And Repairer Name Role Phone Unavailable Primary Care Provider Unavailabl e Encounter Details Date Type Department Care Team (Late st Contact Info) Description 01/04/2020 Transcribed Document [facility] [place] [address] [place] [address] ProviderLaury MD [address] [place] [address] Social History Tobacco Use Types [...] EDT Electronically signed by Christopher Byrd Conversion Insurance Business Analyst Cerner at 11/02/2022 10:03 AM CDT documented in this encounter Plan of Treatment Not on file documented as of this encounter Visit Diagnoses Not on filedocumented in this encounter
--- OUTSIDE RECORDS SUMMARY | 2025-03-05 09:27 | XMS_ITS | Encounter Summary ---
Author Organization [employer] ([place], [place], [place], [place]) Address [address] [place] [address] Care Team Providers Care Service Center Manager Name Role Phone Unavailable Primary Care Provider Unavailabl e Encounter Details Date Type Department Care Team (Late st Contact Info) Description 10/31/2018 Transcribed Document [facility] Family Medicine [address] [place] [address] ProviderLaury MD [address] [place] [address] Social History Tobacco Use Types Packs/Day [...] Laury ProviderMD - 10/31/2018 1:17 AM CDT [facility] ADDRESS [place], [place] [phone] Name:Crystal Archer Visit Date:10/30/2018 20:23:00 Emergency Department Care Providers: Physician: MEGHA MAN Physician: Our doctors and staff appreciate your choice of [facility] for your emergency medical care. Read these instructions carefully. Please call us if you have any questions about your medical problem. [facility] Emergency Department [phone] [facility] Emergency Department [phone] [facility] Emergency Department [phone] Patient Education Materials Gianni Crystal Jones has [...] 10/19/2011 Document Revised: 11/11/2016 Document Reviewed: 06/30/2015 ElseLumeta Interactive Patient Education ? 2017 [employer] FOLLOW UP CARE Most conditions that [...] them up o [facility] # [phone] o [facility] # [phone] o [facility] # [phone] ?? If you had cultures done and [...] quit. o National Network of Tobacco Cessation [id number] o [place] Lung Association o [place] Heart Association [phone] o Sai/Manuel Mccray [phone] FINANCIAL INFORMATION ?? [facility] provides financial counseling to anyone who requests our services. ?? Emergency Physicians are independently contracted to provide your care. You will receive a bill for the care provided to you by the Physician and/or the Physician Newspaper Press Operator Apprentice. This will be a separate bill [...] as recommended Patient Signature / or Patient Tire Changer Aircraft Provider Signature Date documented in this encounter Plan of Treatment Not on file documented as of this encounter Visit Diagnoses Not on filedocumented in this encounter
--- OUTSIDE RECORDS SUMMARY | 2025-03-05 09:27 | XMS_ITS | Encounter Summary ---
Author Organization [employer] ([place], [place], [place], [place]) Address [address] [place] [address] Care Team Providers Care Profiler Operator Name Role Phone Unavailable Primary Care Provider Unavailabl e Encounter Details Date Type Department Care Team (Late st Contact Info) Description 09/26/2018 Transcribed Document [facility] [place] Medicine [address] [place] [address] ProviderLaury MD [address] [place] [address] Social History Tobacco Use Types Packs/Day [...] - Urgent [facility]K Tracking Group : [facility] [place] Dre, Marry 09/26/2018 16:51 EDT ED Visit Reason : Urinary/Voiding Complaints Primary Care Provider : Rema Ferreira, Spindle Tester Accompanied By : Family/Spouse/SO Arrival Mode : [...] : No GI 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 : No Cpr Ambulance Driver Hx : No Heart Attack : [...] Preferred Communication Mode : Verbal Languages : Scottish Child/Parent Domestic Concerns : None Threats of Suicide : No Marry Erickson 09/26/2018 16:51 EDT Height and Weight Height Source : Stated Height Entry Format : Nuckolls Height, Inches : 65 Inch(Converted to: 5 ft 5 Inch, 165.10 cm) Clinical Height : 165.1 cm Weight Source : Stated Type of Weight Measurement Est : Nuckolls Weight, est lb : 213 lb Estimated Clinical Dosing Weight : 96.82 kg [place] Body Weight : 57 kg Body Surface [...] ; Status: Documented ; Ordered As Mnemonic: Arverne 5 mg-325 mg oral tablet ; Simple [...]
--- OUTSIDE RECORDS SUMMARY | 2025-03-05 09:27 | XMS_ITS | Encounter Summary ---
Author Organization [employer] ([place], [place], [place], [place]) Address [address] [place] [address] Care Team Providers Care Bailing Machine Operator Name Role Phone Unavailable Primary Care Provider Unavailabl e Encounter Details Date Type Department Care Team (Late st Contact Info) Description 10/31/2018 Transcribed Document [facility] [place] Medicine [address] [place] [address] ProviderLaury MD [address] [place] [address] Social History Tobacco Use Types Packs/Day [...] Laury ProviderMD - 10/31/2018 1:17 AM CDT [facility] Emergency Department Depart Summary PERSON INFORMATION Name Crystal Archer Age 28 Years 1990 Sex Female Language PCP Marital Status Phone [phone] Visit Id Visit Reason Specialty Enc Type Emergency Med Service Referred by Track Group [facility] Discharge Tracking Id [id number] Checkout 10/30/2018 21:17:02 Checkin 10/30/2018 20:23:00 Acuity 4 - Non-urgent [facility] Dispo Type Arrival 10/30/2018 20:23:00 Reg Status LOS 000 00:54 Address: [address] [place] [address] [place] [address] POWERFORMS PHYSICIAN NOTES VITALS INFORMATION Vital Sign Triage Temp 99 Temp Route Oral/Mouth Pulse Rate 92 Respiratory Rate 22 Blood Pressure 169/ 99 LOCATION INFORMATION Arrival Nurse Unit Room Bed 10/30/2018 20:23:00 [facility] ED Waitroom ([facility]) 10/30/2018 20:35:06 [facility] ED 9 10/30/2018 21:17:02 [facility] ED Checkout ([facility]) MEDICAL INFORMATION Allergy Info: No Known Allergies [...]
--- OUTSIDE RECORDS SUMMARY | 2025-03-05 09:27 | XMS_ITS | Encounter Summary ---
Author Organization [employer] ([place], [place], [place], [place]) Address [address] [place] [address] Care Team Providers Care Beer Still Runner Compounder Name Role Phone Unavailable Primary Care Provider Unavailabl e Encounter Details Date Type Department Care Team (Late st Contact Info) Description 08/03/2018 Transcribed Document [facility] [place] [address] [place] [address] ProviderLaury MD [address] [place] [address] Social History Tobacco Use Types Packs/Day [...] - Laury ProviderMD - 08/03/2018 7:32 PM CUSTOMER EXPERIENCE INTERN [facility] Emergency Department Depart Summary PERSON INFORMATION Name Crystal Archer Age 27 Years 1990 Sex Female Language PCP Marital Status Phone [phone] Visit Id Visit Reason Specialty Enc Type Emergency Med Service Referred by Track Group [facility] [place] Discharge Tracking Id [id number] Checkout 08/03/2018 14:32:57 Checkin 08/03/2018 13:52:00 Acuity 3 - Urgent [facility] Dispo Type Arrival 08/03/2018 13:52:00 Reg Status LOS 000 00:40 Address: [address] [place] [address] [place] [address] POWERFORMS PHYSICIAN NOTES VITALS INFORMATION Vital Sign Triage Temp 98.1 Temp Route Oral/Mouth Pulse Rate 90 Respiratory Rate 18 Blood Pressure 152/ 87 LOCATION INFORMATION Arrival Nurse Unit Room Bed 08/03/2018 13:52:00 [facility] ED Waitroom ([facility]) 08/03/2018 13:55:29 [facility] ED 3 08/03/2018 14:32:57 [facility] ED Checkout ([facility]) MEDICAL INFORMATION Allergy Info: No Known Allergies PATIENT EDUCATION INFORMATION Instructions: Follow up: DIAGNOSIS documented in this encounter Plan of Treatment Not on file documented as of this encounter Visit Diagnoses Not on filedocumented in this encounter
--- OUTSIDE RECORDS SUMMARY | 2025-03-05 09:27 | XMS_ITS | Encounter Summary ---
Author Organization [employer] ([place], [place], [place], [place]) Address [address] [place] [address] Care Team Providers Care Gis Professor Name Role Phone Unavailable Primary Care Provider Unavailabl e Encounter Details Date Type Department Care Team (Late st Contact Info) Description 01/07/2019 Transcribed Document [facility] Family Medicine [address] [place] [address] ProviderLaury MD [address] [place] [address] Social History Tobacco Use Types Packs/Day [...] : No GI 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 : No End Stapler Hx : No Heart Attack : No [...]
--- OUTSIDE RECORDS SUMMARY | 2025-03-05 09:27 | XMS_ITS | Encounter Summary ---
Author Organization [facility] Address [address] [place] [address] Care Team Providers Care Systems Software Developer Name Role Phone Jaquan Conley MD Primary Care Provider + [phone] Encounter Details Date Type Department Care Team (Late st Contact Info) Description 11/10/2018 [facility] OTTR Encounter Historical OTTR [address] [place] [address] Yris Schwarz, RN CH-TRANSPLANT ADMINISTRATION Social History [...] . She stated she is going to [employer] because they told her she can continue [...] AM EDT SW received message from psych otorhinolaryngologist that the pt contacted her to cancel psych appt, as she has decided to pursue listing at [employer], instead of . Note to Coord. and Vessel Liner for awareness. * Progress Notes - Indira Márquez - 11/09/2018 4:12 PM EDT Mailed 11/24/18 [facility] psych eval appt schedule w/ map to pt. 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 Forwarding communication to . * [...] However, pt is also considering going to [employer] since she was told they are less [...] @ 0830. Updated APM, SCM, OTTR, and [place]. Will call pt and mail updated ppw. [...] from pt asking for call back at [phone] to talk about a living donor. Called and spoke w/ pt. States she has several potential living donors and they have questions about the process, testing, and requirements. Informed pt that her potential living donors can call [phone] to discuss this and receive more info, [...] to pt and cc'd referring . USPS [phone] 1984 81. documented in this [...] 4:50 PM EDT Automated LAB Interface us Zzzhistorical Provider LAB BLOOD ORDERABLES F inal Result EXTERNAL LAB documented in this encounter Visit Diagnoses Not on filedocumented in this encounter Care Teams Systems Software Developer Relationship Specialty Start Date End Date Jaquan Conley MD [address] [place], [place] [id number] PCP - General 11/28/20 documented as of this encounter
--- OUTSIDE RECORDS SUMMARY | 2025-03-05 09:27 | XMS_ITS | Encounter Summary ---
Author Organization [employer] ([place], [place], [place], [place]) Address [address] [place] [address] Care Team Providers Care Performance Manager Name Role Phone Unavailable Primary Care Provider Unavailabl e Encounter Details Date Type Department Care Team (Late st Contact Info) Description 01/08/2019 Transcribed Document [facility] Family Medicine [address] [place] [address] ProviderLaury MD [address] [place] [address] Social History Tobacco Use Types Packs/Day Years [...] Laury ProviderMD - 01/08/2019 12:31 AM CDT [facility] ADDRESS [place], [place] [phone] Name:Crystal Archer Visit Date:01/07/2019 18:52:00 Emergency Department Care Providers: Physician: Physician: Our doctors and staff appreciate your choice of [facility] for your emergency medical care. Read these instructions carefully. Please call us if you have any questions about your medical problem. [facility] Emergency Department [phone] [facility] Emergency Department [phone] [facility] Emergency Department [phone] Patient Education Materials Crystal Archer Karen has [...] them up o [facility] # [phone] o [facility] # [phone] o [facility] # [phone] ?? If you had cultures done and [...] quit. o National Network of Tobacco Cessation [id number]-NOW o [place] Lung Association o [place] Heart Association [phone] o Sai/Manuel Mahendra [phone] FINANCIAL INFORMATION ?? [facility] provides financial counseling to anyone who requests our services. ?? Emergency Physicians are independently contracted to provide your care. You will receive a bill for the care provided to you by the Physician and/or the Physician Strainer Cleaner. This will be a separate bill from [...] as recommended Patient Signature / or Patient Paratransit Driver Provider Signature Date documented in this encounter Plan of Treatment Not on file documented as of this encounter Visit Diagnoses Not on filedocumented in this encounter
--- OUTSIDE RECORDS SUMMARY | 2025-03-05 09:27 | XMS_ITS | Clinical Summary ---
Author Organization [facility] Address [address] [place] [address] Care Team Providers Care Land Economist Name Role Phone Unavailable Primary Care Provider [...] therelease of HIV test results or diagnoses. [id number] Allergies Active Allergy Reactions Criticality Noted [...] Td or Tdap) 09/28/2033 09/29/2023 Insurance [facility] care Address: [facility] [id number] [place] [phone]
--- OUTSIDE RECORDS SUMMARY | 2025-03-05 09:27 | XMS_ITS | Encounter Summary ---
Author Organization [employer] ([place], [place], [place], [place]) Address [address] [place] [address] Care Team Providers Care Dinkey Locomotive Operator Name Role Phone Unavailable Primary Care Provider Unavailabl e Encounter Details Date Type Department Care Team (Late st Contact Info) Description 11/19/2018 Transcribed Document [facility] Family Medicine [address] [place] [address] ProviderLaury MD [address] [place] [address] Social History Tobacco Use Types Packs/Day [...] Laury ProviderMD - 11/19/2018 1:52 AM CDT [facility] Emergency Department Depart Summary PERSON INFORMATION Name Crystal Archer Age 28 Years 1990 Sex Female Language PCP Marital Status Phone [phone] Visit Id Visit Reason Specialty Enc Type Emergency Med Service [facility] [id number] Checkout 11/18/2018 21:52:54 Checkin 11/18/2018 20:06:00 Acuity 4 - Non-urgent [facility] Dispo Type Arrival 11/18/2018 20:06:00 Reg Status LOS 000 01:46 Address: [address] [place], [place] [address] [address] POWERFORMS PHYSICIAN NOTES VITALS INFORMATION Vital Sign Triage Temp 99.0 Temp Route Oral/Mouth Pulse Rate 107 Respiratory Rate 18 Blood Pressure 147/ 87 LOCATION INFORMATION Arrival Nurse Unit Room Bed 11/18/2018 20:06:00 [facility] ED Waitroom ([facility]) 11/18/2018 20:10:40 [facility] ED 8 11/18/2018 21:33:06 [facility] ED STA-3 11/18/2018 21:52:54 [facility] ED Checkout ([facility]) MEDICAL INFORMATION Allergy Info: No Known Allergies PATIENT EDUCATION INFORMATION Instructions: Urinary Tract Infection, Adult, Dkjd-or-Wkym; Otitis Media, Adult, Klxm-vv-Yzkh Follow up: With: Address: When: Follow up with primary care provider Within 1-2 days With: Address: When: Return to Emergency Department Within As needed DIAGNOSIS documented in this encounter Plan of Treatment Not on file documented as of this encounter Visit Diagnoses Not on filedocumented in this encounter
--- OUTSIDE RECORDS SUMMARY | 2025-03-05 09:27 | XMS_ITS | Encounter Summary ---
Author Organization [employer] ([place], [place], [place], [place]) Address [address] [place] [address] Care Team Providers Care Computer Hardware Engineer Name Role Phone Unavailable Primary Care Provider Unavailabl e Encounter Details Date Type Department Care Team (Late st Contact Info) Description 01/05/2020 Transcribed Document [facility] Family Medicine [address] [place] [address] ProviderLaury MD [address] [place] [address] Social History Tobacco Use Types [...] 01/05/2020 7:38 EDT Electronically signed by Interface, [facility] Conversion Bander Operator Cerner at 11/02/2022 10:09 AM CDT documented in this encounter Plan of Treatment Not on file documented as of this encounter Visit Diagnoses Not on filedocumented in this encounter
--- OUTSIDE RECORDS SUMMARY | 2025-03-05 09:27 | XMS_ITS | Encounter Summary ---
Author Organization [employer] ([place], [place], [place], [place]) Address [address] [place] [address] Care Team Providers Care Tents Assembler Name Role Phone Unavailable Primary Care Provider Unavailabl e Encounter Details Date Type Department Care Team (Late st Contact Info) Description 01/04/2020 Transcribed Document [facility] [place] [address] [place] [address] ProviderLaury MD [address] [place] [address] Social History Tobacco Use Types Packs/Day [...]
--- OUTSIDE RECORDS SUMMARY | 2025-03-05 09:27 | XMS_ITS | Encounter Summary ---
Author Organization [employer] ([place], [place], [place]) Address [address] [place] [address] Care Team Providers Care Chalk Cutter Name Role Phone Unavailable Primary Care Provider Unavailabl e Encounter Details Date Type Department Care Team (Late st Contact Info) Description 10/31/2018 Transcribed Document [facility] [place] Medicine [address] [place] [address] ProviderLaury MD [address] [place] [address] Social History Tobacco Use Types Packs/Day [...] Laury ProviderMD - 10/31/2018 1:17 AM CDT [facility] ADDRESS [place], [place] [phone] Name:Crystal Archer Visit Date:10/30/2018 20:23:00 Emergency Department Care Providers: Physician: MEGHA MAN Physician: Our doctors and staff appreciate your choice of [facility] for your emergency medical care. Read these instructions carefully. Please call us if you have any questions about your medical problem. [facility] Emergency Department [phone] [facility] Emergency Department [phone] [facility] Emergency Department [phone] Patient Education Materials Gianni Crystal Jones has [...] 10/19/2011 Document Revised: 11/11/2016 Document Reviewed: 06/30/2015 ElseLightSquared Interactive Patient Education ? 2017 [employer] FOLLOW UP CARE Most conditions that [...] o [facility] # [phone] o [facility] # [phone] o # [phone] ?? If you had cultures done and [...] quit. o National Network of Tobacco Cessation [id number]-RLHK-NOW o [place] Lung [employer] o [place] Heart [employer] [phone] o Sai/Manuel Mccray [phone] FINANCIAL INFORMATION ?? [facility] provides financial counseling to anyone who requests our services. ?? Emergency Physicians are independently contracted to provide your care. You will receive a bill for the care provided to you by the Physician and/or the Physician Associate Media Director. This will be a separate bill [...] as recommended Patient Signature / or Patient Petroleum Engineer Provider Signature Date Date/Time 10/30/2018 21:17 [...] Dose Frequency amLODIPine 2.5 mg oral tablet [place] 5 mg-325 mg oral tablet Comment: This [...]
--- OUTSIDE RECORDS SUMMARY | 2025-03-05 09:27 | XMS_ITS | Encounter Summary ---
Author Organization [employer] ([place], [place], [place], [place]) Address [address] [place] [address] Care Team Providers Care Market Asset Protection Manager Name Role Phone Unavailable Primary Care Provider Unavailabl e Encounter Details Date Type Department Care Team (Late st Contact Info) Description 08/24/2019 Transcribed Document [facility] [place] [facility] [place] [address] [place] [address] ProviderLaury MD [address] [place] [address] Social History Tobacco Use Types Packs/Day [...] - Historical ProviderMD - 08/24/2019 11:11 AM ACCOUNTS PAYABLE ANALYST [facility] IntraOp Summary Primary Physician: LARRY MARTINES MD-SUR Finalized Date/Time: 08/24/19 12:55:12 Pt. Name: FREDDIE RUGGIERO FELICIA /Sex: 1990 Female Med Rec #: [id number] Physician: LARRY MARTINES MD-BRANDEE Financial #: [id number] Pt. Type: O Room/Bed: [facility] Admit/Disch: 08/24/19 09:42:00 - [place] [facility] [place] Case Attendance Entry 1 Entry 2 Entry 3 Case Attendee LARRY MARTINES Childress, TOBI J, RN ELLIOTT MOURA TECH MD-SUR Role Performed Surgeon/Proceduralist, Manufacturing Lead, First Scrub, First First Time In 08/24/19 11:09:00 08/24/19 11:09:00 08/24/19 11:09:00 Time Out 08/24/19 11:15:00 08/24/19 11:15:00 08/24/19 11:15:00 Procedure Gastric Biopsy Esophagogastroduodenosco Esophagogastroduodenosco py, Gastric Biopsy py, Gastric Biopsy Other Attendee Superficial Wound Closed By: Last Modified By: ANGE Green RN Childress, TOBI J, RN Childress, TOBI J, RN 08/24/19 11:14:47 08/24/19 11:14:47 08/24/19 11:14:47 Entry 4 Case Attendee MARGRET MCCULLOUGH BSA OFFICER Role Performed BSA OFFICER/Nurse Biofuels Manager Time In 08/24/19 11:09:00 Time Out 08/24/19 11:15:00 Procedure Esophagogastroduodenosco py, Gastric Biopsy Other Attendee Superficial Wound Closed By: Last Modified By: ANGE Green RN 08/24/19 11:14:47 [facility] - Case Attendance Audit 08/24/19 11:14:47 Coordinator Of Health Services: GEOVANNA Modifier: HOLMESTJ 1 <+> Time Out 1 <*> Procedure Gastric Biopsy 2 <+> Time Out 2 <*> Procedure Esophagogastroduodenoscopy, Gastric Biopsy 3 <+> Time Out 3 <*> Procedure Esophagogastroduodenoscopy, Gastric Biopsy 4 <+> Time Out 4 <*> Procedure Esophagogastroduodenoscopy, Gastric Biopsy 08/24/19 11:12:38 Coordinator Of Health Services: HOLMESTJ Modifier: HOLMESTJ <+> 1 Procedure 2 <*> Procedure Esophagogastroduodenoscopy 3 <*> Procedure Esophagogastroduodenoscopy 4 <*> Procedure Esophagogastroduodenoscopy 08/24/19 11:11:44 Coordinator Of Health Services: HOLMESTJ Modifier: HOLMESTJ 2 <+> Time In [...] Endo - Case Times Audit 08/24/19 11:13:59 Coordinator Of Health Services: HOLMESTJ Modifier: HOLMESTJ <+> 1 Out Room Time <+> 1 Stop Time <+> 1 Stop Time 08/24/19 11:11:59 Coordinator Of Health Services: HOLMESTJ Modifier: HOLMESTJ <+> 1 Start Time [facility] - Cultures and Spec Summary Entry 1 Cultrures and Specimens Specimen Ordered: Yes Last Modified By: ANGE Green RN 08/24/19 11:14:38 [facility] - Delays Entry 1 Delay Reason Other Duration 0 Minute(s) Comment NO DELAY Last Modified By: ANGE Green RN 08/24/19 11:09:48 [facility] - Delays Audit 08/24/19 11:09:48 Coordinator Of Health Services: JOHNATHANESTJ Modifier: HOLMESTJ <+> 1 Comment [facility] [...] Modified By: ANGE Green RN 08/24/19 11:09:51 [facility] - Fire Risk Assessment Entry 1 Fire Info Surgical Site or 1- Yes Incision Above the Xyphoid Open O2 Source 1- Yes (Mask or Cannula) Available Ignition 1- Yes (ESU, Laser, Light Source) Fire Risk 3 Assessment Score Fire Score Fire Risk Yes Assessment Complete Fire Risk ANGE Green host and hostess Verified By Fire Risk 08/24/19 11:10:00 Assessment Verified Date/Time Fire Risk High Risk Protocol Yes Implemented Standard Fire Yes Safety Precautions Followed Last Modified By: ANGE Green RN 08/24/19 11:10:04 [facility] - General Case Revenue Accountant 1 Case Information OR Endo 01 [facility] Case Level 1 Room Verified Yes Wound Class II - Clean-Contaminated Specialty SN General Anesthesia Type MAC ASA Class 3 Diagnosis Preop Diagnosis GERD Postop Same As Preop No Postop Diagnosis normal EGD Last Modified By: ANGE Green RN 08/24/19 11:11:13 [facility] - General Case Data Audit 08/24/19 11:14:21 Coordinator Of Health Services: GEOVANNA Modifier: HOLMESTJ <+> 1 Postop Diagnosis [facility] - Intraoperative Assessment Entry 1 Valid [...] Endo - Intraoperative Assessment Audit 08/24/19 12:55:06 Coordinator Of Health Services: JOHNATHANESTJ Modifier: HOLMESTJ <+> 1 Prosthetic/Assistive Devices [facility] - Intraoperative Equipment Entry [...] Endo - Patient Positioning Audit 08/24/19 11:12:40 Coordinator Of Health Services: GEOVANNA Modifier: HOLMESTJ 1 <*> Procedure Esophagogastroduodenoscopy [...] Endo - Sign Out Audit 08/24/19 11:14:13 Coordinator Of Health Services: GEOVANNA Modifier: HOLMESTJ <+> 1 RN Sign Out Signature Date/Time <+> 1 Urinary Catheter Documented in IView [facility] - Surgical Procedures Entry 1 Entry [...] ANGE Green RN 08/24/19 11:12:34 08/24/19 11:12:34 [facility] - Surgical Procedures Audit 08/24/19 11:14:04 Coordinator Of Health Services: GEOVANNA Modifier: HOLMMARCIA <+> 1 Stop <+> 2 Stop [facility] - Time Out Entry [...] Modified By: ANGE Green RN 08/24/19 11:12:41 [facility] - Time Out Audit 08/24/19 11:12:41 Coordinator Of Health Services: GEOVANNA Modifier: HOLMESTJ 1 <*> Procedure to be Performed Esophagogastroduodenoscopy 08/24/19 11:12:26 Coordinator Of Health Services: JOHNATHANESTGiacomo Modifier: HOLMESTJ 1 <*> Beta Renae [...] GEOVANNA Correct Documentation Electronically signed by Rochelle [facility] Conversion Nuclear Test Technician Cerner at 11/02/2022 10:11 AM CDT documented in this encounter Plan of Treatment Not on file documented as of this encounter Visit Diagnoses Not on filedocumented in this encounter
--- OUTSIDE RECORDS SUMMARY | 2025-03-05 09:27 | XMS_ITS | Encounter Summary ---
Author Organization [employer] ([place], [place], [place], [place]) Address [address] [place] [address] Care Team Providers Care Carpenter Prototype Name Role Phone Unavailable Primary Care Provider Unavailabl e Encounter Details Date Type Department Care Team (Late st Contact Info) Description 11/19/2018 Transcribed Document [facility] [place] Family Medicine [address] [place] [address] ProviderLaury MD [address] [place] [address] Social History Tobacco Use Types Packs/Day [...] Laury ProviderMD - 11/19/2018 1:52 AM CDT [facility] ADDRESS [place], [place] [phone] Name:Crystal Archer Visit Date:11/18/2018 20:06:00 Emergency Department Care Providers: Physician: Clara Elias Phys Asst Physician: Our doctors and staff appreciate your choice of [facility] for your emergency medical care. Read these instructions carefully. Please call us if you have any questions about your medical problem. [facility] Emergency Department [phone] [facility] Emergency Department [phone] [facility] Emergency Department [phone] Patient Education Materials Gianni Crystal Jones has [...] start to feel better. ??? Only take aawc-jcw-wpfcxif or prescription medicines for pain, discomfort, or [...] 01/29/2014 Elsevier Interactive Patient Education ? 2017 [employer] Obstetrics and Gynecology Urinary Tract Infection, Adult Introduction A urinary tract infection (UTI) is an infection of any part of the urinary tract. The urinary tract includes the: ??? Kidneys. ??? Ureters. ??? Bladder. ??? Urethra. These organs make, store, and get rid of pee (urine) in the body. Follow these instructions at home: ??? Take nnig-cju-ywgskku and prescription medicines only as told by [...] department to pick them up o [facility] # [phone] o [facility] # [phone] o [facility] # [phone] ?? If you had cultures done and [...] quit. o National Network of Tobacco Cessation [id number]-[id number]-NOW o [employer] o [employer] Association [phone] o Sai/Manuel Mccray [phone] FINANCIAL INFORMATION ?? [facility] provides financial counseling to anyone who requests our services. ?? Emergency Physicians are independently contracted to provide your care. You will receive a bill for the care provided to you by the Physician and/or the Physician Diagnostic Assistant. This will be a separate bill from [...] Patient Education Materials: ENT Otitis Media, Adult, Lhjl-rb-Zrfz Obstetrics and Gynecology Urinary Tract Infection, Adult, Niem-xx-Wwdl Follow-Up Instructions: Follow Up With: Where: When: [...] as recommended Patient Signature / or Patient Pals Nurse Provider Signature Date Date/Time 11/18/2018 21:52 [facility] [...]
--- OUTSIDE RECORDS SUMMARY | 2025-03-05 09:27 | XMS_ITS | Encounter Summary ---
Author Organization [employer] ([place], [place], [place], [place]) Address [address] [place] [address] Care Team Providers Care Store Standards Associate Name Role Phone Unavailable Primary Care Provider Unavailabl e Encounter Details Date Type Department Care Team (Late st Contact Info) Description 01/04/2020 Transcribed Document [facility] [place] [address] [place] [address] ProviderLaury MD [address] [place] [address] Social History Tobacco Use Types Packs/Day [...] Policy Numbers : Insurance 1 Health Plan: [facility] Policy Number: [id number] Authorization Number: [id number] Insurance Primary Name : [facility] Policy Number: [id number] Authorization Status-Primary : Admit approved Reference Number-Primary : [id number] Authorization Number-Primary : [id number] Number of Days Authorized-Primary : 0 Day(s) [...]
--- OUTSIDE RECORDS SUMMARY | 2025-03-05 09:27 | XMS_ITS | Encounter Summary ---
Author Organization [employer] ([place], [place], [place], [place]) Address [address] [place] [address] Care Team Providers Care Car Sales Associate Name Role Phone Unavailable Primary Care Provider Unavailabl e Encounter Details Date Type Department Care Team (Late st Contact Info) Description 09/26/2018 Transcribed Document [facility] [place] [address] [place] [address] ProviderLaury MD [address] [place] [address] Social History Tobacco Use Types Packs/Day [...] Laury ProviderMD - 09/26/2018 10:56 PM CDT [facility] ADDRESS [place], [place] [phone] Name:Crystal Archer Visit Date:09/26/2018 16:44:00 Emergency Department Care Providers: Physician: INDIO PEREA Physician: Our doctors and staff appreciate your choice of [facility] for your emergency medical care. Read these instructions carefully. Please call us if you have any questions about your medical problem. [facility] Emergency Department [phone] [facility] Emergency Department [phone] [facility] Emergency Department [phone] Patient Education Materials Crystal Archer Karen has [...] 07/04/2006 Document Revised: 12/09/2016 Document Reviewed: 03/04/2014 [employer] Interactive Patient Education ? 2017 [employer] FOLLOW UP CARE Most conditions that [...] them up o [facility] # [phone] o [facility] # [phone] o [facility] # [phone] ?? If you had cultures done and [...] quit. o National Network of Tobacco Cessation [id number]-VQGK-NOW o [employer] Lung [employer] o [employer] Heart Association [phone] o Sai/Manuel Mccray [phone] FINANCIAL INFORMATION ?? [facility] provides financial counseling to anyone who requests our services. ?? Emergency Physicians are independently contracted to provide your care. You will receive a bill for the care provided to you by the Physician and/or the Physician Operators Teacher. This will be a separate bill [...] as recommended Patient Signature / or Patient Desktop Architect Provider Signature Date Date/Time 09/26/2018 18:56 Saint [...] oral tablet loratadine 10 mg oral capsule Wells 5 mg-325 mg oral tablet sodium bicarbonate [...] Date Electronically signed by Zuleyka Byrd Conversion Electronic Pagination System Operator Cerner at 10/19/2022 11:22 AM CDT documented in this encounter Plan of Treatment Not on file documented as of this encounter Visit Diagnoses Not on filedocumented in this encounter
--- OUTSIDE RECORDS SUMMARY | 2025-03-05 09:27 | XMS_ITS | Clinical Summary ---
Author Organization [facility] Address [address] [place] [address] Care Team Providers Care Skid Wrapper Name Role Phone Jaquan Conley MD Primary Care Provider + [phone] Allergies Active Allergy Reactions Criticality Noted Date [...] complication, with long-term current use of insulin ([facility]/HCC) To be used in insulin pump. MDD [...] Encounters Date Type Department Care Team Description 03/05/[address] [phone] Erica Ventura PA Prior-authorization/ins urance Verification from Last 3 Months Immunizations Immunization Administration Dates Next Due Hep [...] [facility]-HIV Screening 1990 [facility]-Infant/Child/Adol SDOH Screenings 1990 [id number] Vaccine (#1) 1994 Diabetes: Dental Exam 1999 [...] complication, with long-term current use of insulin ([facility]) CYTO DATA CONVERSION Routine 10/29/2014 12:00 AM EDT from Last 3 Months or Most Recently Relevant to Health Maintenance Results * (ABNORMAL) POCT glycosylated hemoglobin (Hb A1C) (05/23/2024 11:03 AM EST) POCT Hemoglobin A1C 5.8 <5.7% Non-Diabe tic % [facility] Kit Lot Number [id number] [facility] Kit Expiration Date 03/17/2026 [facility] Blood Venous blood specimen / Unknown 05/23/2024 11:03 AM EST Erica MENDEZ POINT OF CARE TEST EN TER/EDIT ORDERABLES Final Result [facility] [address] [place] [address] * Cytology (10/29/2014 12:00 AM EDT) 10/29/2014 10/31/2014 12: 33 PM EDT Narrative [facility] - 11/06/2014 11:15 AM EDT [facility] MR #: [id number] [facility] [address] [place], [place] [address] 1990 (Age: 24) FW Collect Date: 10/29/2014 00:00 Receipt Date: 10/31/2014 12:33 Page 1 DEPARTMENT OF PATHOLOGY AND LABORATORY MEDICINE CYTOPATHOLOGY REPORT Email: [email or web address] ATTENDING MD/Practitioner: John Celestin APRN Service: PAT Location: OUTS Reported: 11/06/2014 11:15 Collected: 10/29/2014 00:00 INTERPRETATION A. THIN PREP (CERVICAL/VAGINAL): NEGATIVE FOR INTRAEPITHELIAL LESION OR MALIGNANCY. SATISFACTORY FOR EVALUATION; ENDOCERVICAL/ TRANSFORMATION ZONE COMPONENT PRESENT. Slide scanned and imaged by [employer] ThinPrep Imaging System with manual review of [...] results is suggested (please call Microbiology at [phone] for results). CLINICAL INFORMATION: Menstrual History: Cyclic Date of Last Menstrual Period: 10/03/14 Other Clinical Conditions: If ASCUS and > 24 years of age, HPV/DNA testing requested. SPECIMEN DESCRIPTION: A: THIN PREP (CERVICAL/VAGINAL) THIN PREP PROCESS CELLULAR ENHANCEMENT ICD: F: A; RT IMAGE [id number] SNOMED CODES: A; [id number] [id number] [id number] In cases where a pathologist has signed out the report, the service has been rendered in part by a resident. The signing pathologist has performed and is responsible for the reported pathologic evaluation. us Zzzhistorical Provider LAB PATHOLOGY ORDERABL ES Final Result [facility] from Last 3 Months or Most Recently Relevant to Health Maintenance Insurance [employer] Care Teams Skid Wrapper Relationship Specialty Start Date End Date Jaquan Conley MD [address] [place] [address] PCP - General 11/28/20
--- OUTSIDE RECORDS SUMMARY | 2025-03-05 09:27 | XMS_ITS | Encounter Summary ---
Author Organization [employer] ([place], [place], [place], [place]) Address [address] [place] [address] Care Team Providers Care Donor Center Technician Name Role Phone Unavailable Primary Care Provider Unavailabl e Encounter Details Date Type Department Care Team (Late st Contact Info) Description 01/08/2019 Transcribed Document [facility] [address] [place] [address] ProviderLaury MD [address] [place] [address] Social History Tobacco Use Types Packs/Day Years [...] Laury ProviderMD - 01/08/2019 12:31 AM CDT [facility] ADDRESS [place], [place] [phone] Name:Crystal Archer Visit Date:01/07/2019 18:52:00 Emergency Department Care Providers: Physician: Physician: Our doctors and staff appreciate your choice of [facility] for your emergency medical care. Read these instructions carefully. Please call us if you have any questions about your medical problem. [facility] Emergency Department [phone] [facility] Emergency Department [phone] [facility] Emergency Department [phone] Patient Education Materials Crystal Archer Karen has [...] x-ray department to pick them up o [facility] # [phone] o [facility] # [phone] o [facility] # [phone] ?? If you had cultures done and [...] quit. o National Network of Tobacco Cessation [id number]-YQBE-NOW o [employer] o [employer] [phone] o Sai/Manuel Mahendra [phone] FINANCIAL INFORMATION ?? [facility] provides financial counseling to anyone who requests our services. ?? Emergency Physicians are independently contracted to provide your care. You will receive a bill for the care provided to you by the Physician and/or the Physician High Value Associate. This will be a separate bill from [...] recommended Patient Signature / or Patient Inspector Precision Provider Signature Date Date/Time 01/07/2019 20:31 Saint [...]
--- OUTSIDE RECORDS SUMMARY | 2025-03-05 09:27 | XMS_ITS | Encounter Summary ---
Author Organization [employer] ([place], [place], [place], [place]) Address [address] [place] [address] Care Team Providers Care Customer Service Representative Name Role Phone Unavailable Primary Care Provider Unavailabl e Encounter Details Date Type Department Care Team (Late st Contact Info) Description 09/07/2018 Transcribed Document [facility] [place] [place] [address] [place] [address] ProviderLaury MD [address] [place] [address] Social History Tobacco Use Types Packs/Day [...] - Laury ProviderMD - 09/07/2018 9:31 PM ANIMAL CARE ASSISTANT [facility] ADDRESS [place], [place] [phone] Name:Crystal Archer Visit Date:09/07/2018 15:20:00 Emergency Department Care Providers: Physician: MEGHA MAN Physician: Our doctors and staff appreciate your choice of [facility] for your emergency medical care. Read these instructions carefully. Please call us if you have any questions about your medical problem. [facility] Emergency Department [phone] [facility] Emergency Department [phone] [facility] Emergency Department [phone] Patient Education Materials Gianni Crystal Jones has [...] 12/15/2006 Document Revised: 03/06/2017 Document Reviewed: 12/11/2014 [facility] Interactive Patient Education ? 2017 [facility] FOLLOW UP CARE Most conditions that [...] department to pick them up o [facility] # [phone] o [facility] # [phone] o [facility] # [phone] ?? If you had cultures done and [...] quit. o National Network of Tobacco Cessation PJcmouhrf7-093-VPUK-NOW o [employer] o [employer] [phone] o Sai/Manuel Mccray [phone] FINANCIAL INFORMATION ?? [facility] provides financial counseling to anyone who requests our services. ?? Emergency Physicians are independently contracted to provide your care. You will receive a bill for the care provided to you by the Physician and/or the Physician Fnp. This will be a separate bill from [...] as recommended Patient Signature / or Patient Gospel Singer Provider Signature Date Date/Time 09/07/2018 16:31 Saint [...] oral tablet loratadine 10 mg oral capsule Roland 5 mg-325 mg oral tablet sodium bicarbonate [...]
--- OUTSIDE RECORDS SUMMARY | 2025-03-05 09:27 | XMS_ITS | Encounter Summary ---
Author Organization [employer] ([place], [place], [place], [place]) Address [address] [place] [address] Care Team Providers Care Procurement Intern Name Role Phone Unavailable Primary Care Provider Unavailabl e Encounter Details Date Type Department Care Team (Late st Contact Info) Description 11/19/2018 Transcribed Document [facility] [place] [address] [place] [address] ProviderLaury MD [address] [place] [address] Social History Tobacco Use Types Packs/Day [...] : No GI 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 : No Environmental Lead Hx : No Heart Attack : No [...] Preferred Communication Mode : Verbal Languages : Wallisian Child/Parent Domestic Concerns : None Threats of Suicide : No Marry Erickson 11/18/2018 20:14 EDT Height and Weight Height Source : Stated Height Entry Format : [place] Height, Inches : 65 Inch(Converted to: 5 ft 5 Inch, 165.10 cm) Clinical Height : 165.1 cm Weight Source : Bed scale Weight Entry Format : [place] Weight, Pounds : 220 lb Clinical Dosing Weight : 100 kg Body Surface Area-(BSA) : 2.14 m2 Body Mass Index : 36.7 kg/m2 (HI) Olar Body Weight : 57 kg Marry Erickson [...]
--- OUTSIDE RECORDS SUMMARY | 2025-03-05 09:27 | XMS_ITS | Encounter Summary ---
Author Organization [employer] ([place], [place], [place], [place]) Address [address] [place] [address] Care Team Providers Care Cushion Builder Name Role Phone Unavailable Primary Care Provider Unavailabl e Encounter Details Date Type Department Care Team (Late st Contact Info) Description 01/18/2020 Transcribed Document [facility] Family Medicine [address] [place] [address] ProviderLaury MD [address] [place] [address] Social History Tobacco Use Types [...] Communication Barrier : None Primary Language : Swiss Any Spiritual/Cultural Needs or Requests : No [...] (Last Updated: 08/24/2019 10:21:13 EST by ANGE rGeen RN) Caffeine intake amount: none. (Last Updated: [...]
--- OUTSIDE RECORDS SUMMARY | 2025-03-05 09:27 | XMS_ITS | Encounter Summary ---
Author Organization [employer] ([place], [place], [place], [place]) Address [address] [place] [address] Care Team Providers Care Molding Supervisor Name Role Phone Unavailable Primary Care Provider Unavailabl e Encounter Details Date Type Department Care Team (Late st Contact Info) Description 01/04/2020 Transcribed Document [facility] [place] [address] [place] [address] ProviderLaury MD [address] [place] [address] Social History Tobacco Use Types [...]
--- OUTSIDE RECORDS SUMMARY | 2025-03-05 09:27 | XMS_ITS | Encounter Summary ---
Author Organization [employer] ([place], [place], [place], [place]) Address [address] [place] [address] Care Team Providers Care Public Health Staff Nurse Name Role Phone Unavailable Primary Care Provider Unavailabl e Encounter Details Date Type Department Care Team (Late st Contact Info) Description 09/26/2018 Transcribed Document [facility] Family Medicine [address] [place] [address] ProviderLaury MD [address] [place] [address] Social History Tobacco Use Types Packs/Day [...] Laury ProviderMD - 09/26/2018 10:56 PM CDT [facility] ADDRESS [place], [place] [phone] Name:Crystal Archer Visit Date:09/26/2018 16:44:00 Emergency Department Care Providers: Physician: INDIO PEREA Physician: Our doctors and staff appreciate your choice of [facility] for your emergency medical care. Read these instructions carefully. Please call us if you have any questions about your medical problem. [facility] Emergency Department [phone] [facility] Emergency Department [phone] [facility] Emergency Department [phone] Patient Education Materials Crystal Archer Karen has [...] 07/04/2006 Document Revised: 12/09/2016 Document Reviewed: 03/04/2014 Mi[employer] Interactive Patient Education ? 2017 [employer] Inc. FOLLOW UP CARE Most conditions that [...] x-ray department to pick them up o [facility] # [phone] o [facility] # [phone] o [facility] # [phone] ?? If you had cultures done and [...] quit. o National Network of Tobacco Cessation [id number]-SZFP-NOW o [employer] Lung Association o [employer] Heart Association [phone] o Sai/Manuel Mccray [phone] FINANCIAL INFORMATION ?? [facility] provides financial counseling to anyone who requests our services. ?? Emergency Physicians are independently contracted to provide your care. You will receive a bill for the care provided to you by the Physician and/or the Physician Application Support Lead. This will be a separate bill from [...] as recommended Patient Signature / or Patient Central Office Repairer Provider Signature Date documented in this encounter Plan of Treatment Not on file documented as of this encounter Visit Diagnoses Not on filedocumented in this encounter
--- OUTSIDE RECORDS SUMMARY | 2025-03-05 09:27 | XMS_ITS | Encounter Summary ---
Author Organization [facility] Address [address] [place] [address] Care Team Providers Care Maintenance Of Way Superintendent Name Role Phone Jaquan Conley MD Primary Care Provider + [phone] Reason for Visit * Reason Onset Date Comments Prior-authorization/insurance Verification 03/05 Encounter Details Date Type Department Care Team (Late st Contact Info) Description 03/05/2025 Telephone [facility] Endocrinology [address] [place] [address] Erica Fernández PA [address] [address] Prior-authorization/in surance Verification Social History Tobacco Use Types Packs/Day Years [...] Notes * Telephone Encounter - Susana Thao - 03/05/2025 9:05 AM EDT Images from the original note were not included. Prior authorization requested for Novolog Relion 100unit/ml Solution. Ordered by Erica fernández documented in this encounter Plan of Treatment Not on file documented as of this encounter Visit Diagnoses Not on filedocumented in this encounter Additional Health Concerns Assessment Noted Time A fall risk assessment has been complete d for the patient 06/20/2023 12:51 PM EST A Body Mass Index follow-up plan has been documented for the patient 10/11/2024 3:34 PM EDT documented as of this encounter Care Teams Maintenance Of Way Superintendent Relationship Specialty Start Date End Date Jaquan Conley MD [address] [place], [place] [id number] PCP - General 11/28/20 documented as of this encounter
--- OUTSIDE RECORDS SUMMARY | 2025-03-05 09:27 | XMS_ITS | Encounter Summary ---
Author Organization [employer] ([place], [place], [place]) Address [address] [place] [address] Care Team Providers Care Floatlight Loading Supervisor Name Role Phone Unavailable Primary Care Provider Unavailabl e Encounter Details Date Type Department Care Team (Late st Contact Info) Description 01/05/2020 Transcribed Document [facility] Family Medicine [address] [place] [address] ProviderLaury MD [address] [place] [address] Social History Tobacco Use Types Packs/Day [...] On: 01/05/2020 8:27 EDT by CRISTOBAL HANSEN, RN-Solar Project Manager Initial Assessment I Previously Documented Living Environment [...] have PCP Listed? : Yes CRISTOBAL HANSEN RN-Solar Project Manager - 01/05/2020 8:27 EDT Initial Assessment II [...] : Discharge transportation, Outpatient services CRISTOBAL HANSEN RN-Solar Project Manager - 01/05/2020 8:27 EDT Narrative Note Narrative Note : Patient underwent laparoscopic gastrectomy sleeve. Lives at home with family, iADLs. Plan is to return home at ia, no services needed..................sds CRISTOBAL HANSEN RN-Solar Project Manager - 01/05/2020 8:27 EDT documented in this encounter Plan of Treatment Not on file documented as of this encounter Visit Diagnoses Not on filedocumented in this encounter
--- OUTSIDE RECORDS SUMMARY | 2025-03-05 09:27 | XMS_ITS | Encounter Summary ---
Author Organization [employer] ([place], [place], [place], [place]) Address [address] [place] [address] Care Team Providers Care X Ray Inspector Name Role Phone Unavailable Primary Care Provider Unavailabl e Encounter Details Date Type Department Care Team (Late st Contact Info) Description 12/24/2018 Transcribed Document [facility] Family Medicine [address] [place] [address] ProviderLaury MD [address] [place] [address] Social History Tobacco Use Types Packs/Day [...] Laury ProviderMD - 12/24/2018 7:19 PM CDT [facility] ADDRESS [place], [place] [phone] Name:Crystal Archer Visit Date:12/24/2018 15:01:00 Emergency Department Care Providers: Physician: MEGHA MAN Physician: Our doctors and staff appreciate your choice of [facility] for your emergency medical care. Read these instructions carefully. Please call us if you have any questions about your medical problem. [facility] Emergency Department [phone] [facility] Emergency Department [phone] [facility] Emergency Department [phone] Patient Education Materials Gianni Crystal Karen has [...] Medicines may be prescribed or be available ikrn-awy-pnygrua. The medicines may be: ??? Taken by mouth (orally). ??? Applied as a cream. Follow these instructions at home: ??? Take or apply kbcj-iby-ygqeqiy and prescription medicines only as told by [...] 03/21/2012 Document Revised: 02/27/2017 Document Reviewed: 01/05/2016 [employer] Interactive Patient Education ? 2019 GLG. FOLLOW UP CARE Most conditions that require [...] the x-ray department to pick them up [facility] # [phone] [facility] # [phone] o [facility] # [phone] ?? If you had cultures done and [...] quit. o National Network of Tobacco Cessation [id number]-UOMG-NOW o Irish Lung Association o Irish Heart Association [phone] o Sai/Manuel Mccray [phone] FINANCIAL INFORMATION ?? [facility] provides financial counseling to anyone who requests our services. ?? Emergency Physicians are independently contracted to provide your care. You will receive a bill for the care provided to you by the Physician and/or the Physician Technician Chemical Cleaning. This will be a separate bill from [...] as recommended Patient Signature / or Patient Drywall Stripper Helper Provider Signature Date Electronically signed by [facility], [facility] Conversion Coin Dealer Cerner at 10/19/2022 11:23 AM CDT documented in this encounter Plan of Treatment Not on file documented as of this encounter Visit Diagnoses Not on filedocumented in this encounter
--- OUTSIDE RECORDS SUMMARY | 2025-03-05 09:27 | XMS_ITS | Encounter Summary ---
Author Organization [employer] ([place], [place], [place], [place]) Address [address] [place] [address] Care Team Providers Care Racecar Driver Name Role Phone Unavailable Primary Care Provider Unavailabl e Encounter Details Date Type Department Care Team (Late st Contact Info) Description 08/03/2018 Transcribed Document [facility] Family Medicine [address] [place] [address] ProviderLaury MD [address] [place] [address] Social History Tobacco Use Types Packs/Day [...] - Laury ProviderMD - 08/03/2018 6:57 PM COMMUNITY ARTS CENTRE MANAGER BBK Triage ED Entered On: 08/03/2018 14:06 [...] : No GI 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 : No Visual And Stock Associate Hx : No Heart Attack : No [...] Preferred Communication Mode : Verbal Languages : Palauan Child/Parent Domestic Concerns : None Threats of Suicide : No ROSA FOSTER 08/03/2018 13:57 EST Height and Weight Height Source : Stated Height Entry Format : [place] Height, Inches : 65 Inch(Converted to: 5 ft 5 Inch, 165.10 cm) Clinical Height : 165.1 cm Weight Source : Stated Type of Weight Measurement Est : [place] Weight, est lb : 215 lb Estimated Clinical Dosing Weight : 97.73 kg [place] Body Weight : 57 kg Body Surface [...]
--- OUTSIDE RECORDS SUMMARY | 2025-03-05 09:27 | XMS_ITS | Encounter Summary ---
Author Organization [employer] ([place], [place], [place], [place]) Address [address] [place] [address] Care Team Providers Care Leather Tooler Name Role Phone Unavailable Primary Care Provider Unavailabl e Encounter Details Date Type Department Care Team (Late st Contact Info) Description 01/18/2020 Transcribed Document [facility] [place] Medicine [address] [place] [address] ProviderLaury MD [address] [place] [address] Social History Tobacco Use Types [...] Laury ProviderMD - 01/18/2020 8:28 PM CDT [place] Suicide Severity Rating Scale (C-SSRS) Entered On: 01/18/2020 21:29 EDT Performed On: 01/18/2020 21:29 EDT by JASON FUENTES RN [place] Suicide Severity Rating Scale (C-SSRS) CSSRS Past Month Wish to be : No CSSRS Past Month Suicidal Thoughts : No CSSRS Lifetime Suicide Behavior : No Suicide Severity Rating Score : 0 Suicide Severity Rating : No Additional Care Required at this time JASON FUENTES, HERNÁN - 01/18/2020 21:29 EDT Electronically signed by Zuleyka Byrd Conversion Fabricator Assembler Metal Products Cerner at 11/02/2022 10:10 AM CDT documented in this encounter Plan of Treatment Not on file documented as of this encounter Visit Diagnoses Not on filedocumented in this encounter
--- OUTSIDE RECORDS SUMMARY | 2025-03-05 09:27 | XMS_ITS | Encounter Summary ---
Author Organization [employer] ([place], [place], [place], [place]) Address [address] [place] [address] Care Team Providers Care Foreign Exchange Clerk Name Role Phone Unavailable Primary Care Provider Unavailabl e Encounter Details Date Type Department Care Team (Late st Contact Info) Description 12/28/2019 Transcribed Document [facility] [place] [address] [place] [address] ProviderLaury MD [address] [place] [address] Social History Tobacco Use Types Packs/Day [...] Policy Numbers : Insurance 1 Health Plan: [facility] Policy Number: [id number] Authorization Number: Insurance Primary Name : [facility] Policy Number: [id number] Authorization Status-Primary : Admit approved Reference Number-Primary : [id number] Authorization Number-Primary : [id number] Number of Days Authorized-Primary : 0 Day(s) Authorized Service Begin Date-Primary : 01/04/2020 EDT Authorized Service End Date-Primary : 01/04/2020 EDT Authorization Comments-Primary : [employer] approved per website for 1 day inpt Historical Authorization Comments-Primary : No Authorization Comments Found MANOJ HWANG RN-Utilization Review - 12/28/2019 11:50 EDT Electronically signed by Zuleyka Byrd Conversion Technical Maintenance Technician Cerner at 11/02/2022 10:05 AM CDT documented in this encounter Plan of Treatment Not on file documented as of this encounter Visit Diagnoses Not on filedocumented in this encounter
--- OUTSIDE RECORDS SUMMARY | 2025-03-05 09:27 | XMS_ITS | Encounter Summary ---
Author Organization [employer] ([place], [place], [place], [place]) Address [address] [place] [address] Care Team Providers Care Explosive Operator Name Role Phone Unavailable Primary Care Provider Unavailabl e Encounter Details Date Type Department Care Team (Late st Contact Info) Description 01/04/2020 Transcribed Document [facility] Family Medicine [facility] [place] [address] ProviderLaury MD [address] [place] [address] Social History Tobacco Use Types Packs/Day [...] Laparoscopic sleeve gastrectomy SURGEON: Xavi Mejia M.D. FOLDER GLUER OPERATOR: Daniel steinberg MD ANESTHESIA: General. SPECIMEN: Stomach. INDICATION FOR PROCEDURE: is a 29-year-old patient with longterm history of morbid obesity and CKD, has [...] was done, we proceeded to place the 54-Lithuanian bougie down the esophagus into the stomach under direct visualization. When it was in the antrum, we proceeded to staple the stomach in a parallel manner to the greater curvature, creating a sleeve gastrectomy using the Vance stapler. We used green loads, all reinforced [...]
--- OUTSIDE RECORDS SUMMARY | 2025-03-05 09:27 | XMS_ITS | Encounter Summary ---
Author Organization [employer] ([place], [place], [place], [place]) Address [address] [place] [address] Care Team Providers Care Roto Gravure Press Operator Name Role Phone Unavailable Primary Care Provider Unavailabl e Encounter Details Date Type Department Care Team (Late st Contact Info) Description 12/24/2018 Transcribed Document [facility] Family Medicine [address] [place] [address] ProviderLaury MD [address] [place] [address] Social History Tobacco Use Types Packs/Day [...] Laury ProviderMD - 12/24/2018 7:19 PM CDT [facility] ADDRESS [place], [place] [phone] Name:Crystal Archer Visit Date:12/24/2018 15:01:00 Emergency Department Care Providers: Physician: MEGHA MAN Physician: Our doctors and staff appreciate your choice of [facility] for your emergency medical care. Read these instructions carefully. Please call us if you have any questions about your medical problem. [facility] Emergency Department [phone] [facility] Emergency Department [phone] [facility] Emergency Department [phone] Patient Education Materials Gianni Crystal Karen has [...] Medicines may be prescribed or be available vkhg-fcr-vmgumwn. The medicines may be: ??? Taken by mouth (orally). ??? Applied as a cream. Follow these instructions at home: ??? Take or apply hlns-qqi-ctgmqqy and prescription medicines only as told by [...] 03/21/2012 Document Revised: 02/27/2017 Document Reviewed: 01/05/2016 [employer]Return Interactive Patient Education ? 2019 hike. FOLLOW UP CARE Most conditions that require [...] the x-ray department to pick them up [facility] # [phone] [facility] # [phone] o [facility] # [phone] ?? If you had cultures done and [...] quit. o National Network of Tobacco Cessation [id number]-FNFQ-NOW o [place] Lung Association o [employer] Heart Association [phone] o Sai/Manuel Mccray [phone] FINANCIAL INFORMATION ?? [facility] provides financial counseling to anyone who requests our services. ?? Emergency Physicians are independently contracted to provide your care. You will receive a bill for the care provided to you by the Physician and/or the Physician Economics Teacher. This will be a separate bill [...] as recommended Patient Signature / or Patient Recreation Technician Provider Signature Date Date/Time 12/24/2018 15:19 [facility] Home Medications Name Crytsal Archer Allergy Info: No Known Allergies Allergy [...]
--- OUTSIDE RECORDS SUMMARY | 2025-03-05 09:27 | XMS_ITS | Encounter Summary ---
Author Organization [facility] Address [address] 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
--- OUTSIDE RECORDS SUMMARY | 2025-03-05 09:27 | XMS_ITS | Encounter Summary ---
Author Organization [employer] ([place], [place], [place], [place]) Address [address] [place] [address] Care Team Providers Care Tailings Man Name Role Phone Unavailable Primary Care Provider Unavailabl e Encounter Details Date Type Department Care Team (Late st Contact Info) Description 01/07/2020 Transcribed Document [facility] Family Medicine [address] [place] [address] ProviderLaury MD [address] [place] [address] Social History Tobacco Use Types Packs/Day [...] for Hospitalization is a 29-year-old patient with terminal operator history of morbid obesity and CKD, has [...] Int Units = 1 Cap, Oral, Weekly [place] 7.5/325 oral every 6 hours as needed for pain. Zofran 8mg oral every 12 hours as needed for nausea. Prilosec 20mg oral daily. Starts tomorrow. [2] Code Status No Code Status Order on Record Condition on Discharge Stable Consulting Physicians LARRY JAIMES MD-ANS Current Diet Order No qualifying data available. Patient Discharge Summary Orders Discharge Follow Up Instructions: followup next weekCall for [id number] Follow Up Instructions: call office on tuesday [...]
--- OUTSIDE RECORDS SUMMARY | 2025-03-05 09:27 | XMS_ITS | Encounter Summary ---
Author Organization [employer] ([place], [place], [place], [place]) Address [address] [place] [address] Care Team Providers Care Route Service Representative Name Role Phone Unavailable Primary Care Provider Unavailabl e Encounter Details Date Type Department Care Team (Late st Contact Info) Description 09/28/2019 Transcribed Document [facility] [place] [address] [place] [address] ProviderLaury MD [address] [place] [address] Social History Tobacco Use Types Packs/Day [...] Policy Numbers : Insurance 1 Health Plan: [facility] Policy Number: [id number] Authorization Number: Insurance Primary Name : [facility] Policy Number: [id number] Authorization Status-Primary : Admit approved Reference Number-Primary : [id number] Authorization Number-Primary : [id number] Number of Days Authorized-Primary : 0 Day(s) [...]
--- OUTSIDE RECORDS SUMMARY | 2025-03-05 09:28 | XMS_ITS | Encounter Summary ---
Author Organization [employer] ([place], [place], [place], [place]) Address [address] [place] [address] Care Team Providers Care Wood Patternmaker Name Role Phone Unavailable Primary Care Provider Unavailabl e Encounter Details Date Type Department Care Team (Late st Contact Info) Description 09/07/2018 Transcribed Document [facility] [place] [address] [place] [address] ProviderLaury MD [address] [place] [address] Social History Tobacco Use Types Packs/Day [...] - Laury ProviderMD - 09/07/2018 9:31 PM FILTERING MACHINE TENDER [facility] ADDRESS [place], [place] [phone] Name:Crystal Archer Visit Date:09/07/2018 15:20:00 Emergency Department Care Providers: Physician: MEGHA MAN Physician: Our doctors and staff appreciate your choice of [facility] for your emergency medical care. Read these instructions carefully. Please call us if you have any questions about your medical problem. [facility] Emergency Department [phone] [facility] Emergency Department [phone] [facility] Emergency Department [phone] Patient Education Materials Gianni Crystal Jones has [...] 12/15/2006 Document Revised: 03/06/2017 Document Reviewed: 12/11/2014 [employer] Interactive Patient Education ? 2017 [employer]. FOLLOW UP CARE Most conditions that [...] to pick them up o [facility] # [phone] o [facility] # [phone] o [facility] # [phone] ?? If you had cultures done and [...] quit. o National Network of Tobacco Cessation XKuaiaoom9-897-VAHJ-NOW o [place] Lung Association o [place] Heart Association [phone] o Sai/Manuel Mccray [phone] FINANCIAL INFORMATION ?? [facility] provides financial counseling to anyone who requests our services. ?? Emergency Physicians are independently contracted to provide your care. You will receive a bill for the care provided to you by the Physician and/or the Physician Rib Knitter. This will be a separate bill from [...] as recommended Patient Signature / or Patient Ampoule Filler And Sealer Provider Signature Date documented in this encounter Plan of Treatment Not on file documented as of this encounter Visit Diagnoses Not on filedocumented in this encounter
--- OUTSIDE RECORDS SUMMARY | 2025-03-05 09:28 | XMS_ITS | Encounter Summary ---
Author Organization [facility] Address [address] [id number] Care Team Providers Care Developmental Mathematics Professor Name Role Phone Maria A Soria SAMPLING EXPERT Primary Care Provider [phone] Encounter Details Date Type Department Care Team (Late st Contact Info) Description 02/26/2025 Telephone [facility] PRIMARY CARE [address] [place] [phone] Maria A Soria, SAMPLING EXPERT [address] [place], [place] [phone] Social History Tobacco Use Types Packs/Day Years [...] Telephone Encounter - Betsey Roach MA - 02/27/2025 7:41 AM EDT Note faxed * Telephone Encounter - Shannon Woods RegSched Rep - 02/26/2025 2:38 PM EDT PATIENT NEEDS PREOP SENT TO [facility] AT [phone] documented in this encounter Plan of Treatment Not on file documented as of this encounter Visit Diagnoses Not on filedocumented in this encounter Care Teams Developmental Mathematics Professor Relationship Specialty Start Date End Date Maria A Soria APRN [address] [place] [address] PCP - General Family Medicine 02/15/23 documented as of this encounter
--- OUTSIDE RECORDS SUMMARY | 2025-03-05 09:28 | XMS_ITS | Referral Summary ---
Author Organization [employer] ([place], [place], [place], [place]) Address [address] [place] [address] Care Team Providers Care Dial Marker Name Role Phone Unavailable Primary Care Provider [...] file Insurance Lb MONTALVO MARTIN URIEL LOWERY [id number] [facility] Advance Directives For more information, please contact: [phone] * Full Code (Latest Code Status on File) Date Activated Date Inactivated Comments 09/23/2022 6:27 AM 09/23/2022 11:31 AM
--- OUTSIDE RECORDS SUMMARY | 2025-03-05 09:28 | XMS_ITS | Encounter Summary ---
Author Organization [facility] Address [address] [place] [address] Care Team Providers Care Chest Painting And Sealing Supervisor Name Role Phone Jaquan Conley MD Primary Care Provider [phone] Reason for Visit * Reason Comments Med Refill Encounter Details Date Type Department Care Team (Late st Contact Info) Description 09/25/2024 Refill [facility] - Transplantation Surgery [address] [address] Cb Forrester MD [address], [address] [place] [address] Social History Tobacco Use Types Packs/Day Years [...] on filedocumented in this encounter Care Teams Chest Painting And Sealing Supervisor Relationship Specialty Start Date End Date Jaquan Conley MD [address] [place] [address] [place] [id number] PCP - General Internal Medicine 09/18/20 documented as of this encounter
--- OUTSIDE RECORDS SUMMARY | 2025-03-05 09:28 | XMS_ITS | Encounter Summary ---
Author Organization [employer] ([place], [place], [place], [place]) Address [address] [place] [address] Care Team Providers Care Fine Unhairer Name Role Phone Unavailable Primary Care Provider Unavailabl e Encounter Details Date Type Department Care Team (Late st Contact Info) Description 09/07/2018 Transcribed Document [facility] [place] [address] [place] [address] ProviderLaury MD [address] [place] [address] Social History Tobacco Use Types Packs/Day [...] - Laury ProviderMD - 09/07/2018 8:23 PM OIL EXPERT [facility] Triage ED Entered On: 09/07/2018 15:30 [...] : No GI 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 : No Motor Vehicles Supervisor Hx : No Heart Attack : [...] Source : Stated Height Entry Format : Parke Height, Inches : 65 Inch(Converted to: 5 ft 5 Inch, 165.10 cm) Clinical Height : 165.1 cm Weight Source : Stated Type of Weight Measurement Est : Parke Weight, est lb : 215 lb Estimated Clinical Dosing Weight : 97.73 kg [place] Body Weight : 57 kg Body Surface Area Estimated : 2.12 m2 Body Mass Index Estimated : 35.85 kg/m2 Silvia Cole, - 09/07/2018 15:23 EST Medication List ED Medications Reviewed : Yes Source of Information : Patient Silvia Cole, - 09/07/2018 15:23 EST Medication List (As Of: 09/07/2018 15:30:02 EST) Home Meds Status: Processing ; Ordered As Mnemonic: [place] 5 mg-325 mg oral tablet ; Simple [...]
--- OUTSIDE RECORDS SUMMARY | 2025-03-05 09:28 | XMS_ITS | Clinical Summary ---
Author Organization [facility] Address [address] [place] [address] Care Team Providers Care Nut Sorter Name Role Phone Yang Maria A Doyle APRN Primary Care Provider [phone] Allergies Active Allergy Reactions Criticality Noted Date [...] Active vitamin D (ERGOCALCIFEROL ) 1.25 MG (12010 UT) capsule capsule Take 1 capsule by mouth once a week 12 capsule 02/05/20 25 Active Vitamin D, Ergocalciferol, 53509 units capsule Take 1 capsule by mouth 1 (One) Time Per Week. 12 capsule 1 08/23/19 25 025 Discontinued azithromycin (Zithromax Z-Jose Daniel) 250 MG tabletIndicatio ns:Acute non-recurrent pansinusitis Take 2 tablets by mouth on day 1, then 1 tablet daily on days 2-5 6 tablet 09/14/19 25 025 Discontinued vitamin D (ERGOCALCIFEROL ) 1.25 MG (13686 UT) capsule capsule Take 1 capsule by [...] menstrual bleeding. Followed by Dr. Lynch at [facility]. In review of most recent labs and [...] emptying. Contacted her transplant medical team at [facility] this morning with her symptoms set. [...] Plan (10/04/2024 3:33 PM EDT): Valuated in [place] ED for the same approximately 1 month [...] have also requested records from [facility] ED visit which supposedly includes some diagnostic [...] 2023 she received a call from the [facility] that they had a match for [...] daily. Continues to be followed closely by [facility] transplant as well as Dr. Stevnes at [facility]. Assessment & Plan (08/22/2024 11:22 AM EST): On December 02, 2023 she received a call from the [facility] that they had a match for [...] daily. Continues to be followed closely by [facility] transplant as well as Dr. Stevens at [facility] locally. Assessment & Plan (06/07/2024 12:35 PM EST): Patient last evaluated in our office a little over 1 year ago in April 2023. At that time she was suffering from end-stage renal disease due to diabetic nephropathy, performing home peritoneal dialysis nightly. On December 02, 2023 she received a call from the [facility] that they had a match for [...] daily. Continues to be followed closely by [facility] transplant as well as Dr. Stevens at [facility] locally. Annual physical exam 03/15/2023 Cervical [...] by Dr. Stevens at [facility]. Working towards renal transplant with [facility].. Assessment & Plan (03/15/2023 5:10 PM EDT): Etiology of end-stage renal disease appears to be hypertensive nephrosclerosis as well as diabetic nephropathy. She was a noncompliant type I diabetic for many years, diagnosed at the age of 12. She is currently performing home peritoneal dialysis nocturnally 6 days/week. Working towards renal transplant with [facility]. Followed by [facility], Dr. Stevens. Assessment & Plan (02/15/2023 3:01 PM EDT): Etiology of end-stage renal disease appears to be hypertensive nephrosclerosis as well as diabetic Nephropathy. She was a noncompliant type I diabetic for many years, diagnosed at the age of 12. She is currently performing home peritoneal dialysis nocturnally 6 days/week. Working towards renal transplant with [facility]. To pursue transplant services at [facility] as well but finances are making that [...] therapy for quite some time by her fire battalion chief. Patient has not been on GLP-1 for [...] been started on GLP-1 therapy by her fire battalion chief and is back down to 157 pounds [...] of 107. She reports she saw her melangeur operator who wanted to increase her blood pressure medications but she refused stating she knew she stopped the medications her blood pressure would return to normal. She is now off both BuSpar and venlafaxine with blood pressure 110/74 in office today. Patient feels her mood is stable currently without medications due to some decrease stressors in the home. Her [id number] with whom she help caregive from Hemingway's disease, decreasing some of her personal obligations. [...] to that presentation she was evaluated at [facility] with respiratory issues, tested negative for COVID [...] sneezing. She was a originally evaluated at [facility] over 1 week ago with respiratory [...] parasites and C. difficile toxin. Chronic kidney disease-drift miner al and bone disorder 02/15/2023 06/07/2024 [...] Encounters Date Type Department Care Team Description 02/26/[address] [facility] [address] [place] [address] Maria A Soria, ANJU 02/22/2025 10:30 AM EDT Office Visit [facility] [address] [place] [address] [place] [address] Maria A Soria, TUBE WINDER Type 2 diabetes mellitus with hyperglycemia, with long-term current use of insulin (Primary Dx); Essential hypertension; History of bariatric surgery; History of drug abuse; Mixed hyperlipidemia; Persistent depressive disorder; Pre-operative clearance; Renal transplant recipient 02/22/2025 Travel 02/08/2025 Results Follow-Up [facility] [address] [place] [address] [place] [address] Maria A Soria, ANJU 02/06/2025 10:45 AM EDT Office Visit [facility] [address] [place] [address] [place] [address] Maria A Soria, ANJU Dysuria (Primary Dx) 02/06/2025 Travel 02/04/[address] [facility] [address] [place] [address] [place] [address] Maria A Soria APRN 02/03/[address] [facility] [address] [place] [address] [place] [address] Maria A Soria, ANJU from Last 3 Months Immunizations Immunization Administration Dates Next Due -influenza Vac Quardvalent Preservativ 019,04/06/2018 Flublok 18+yrs 04/13/2023 Fluzone >6mos 04/26/2024 Fluzone (or Fluarix & Flulav al for VFC) >6mos 04/07/2021,04/22/2020,05/06/2017 Fluzone Quad >6mos (Multi-dose) 04/05/2012 Hepatitis A 01/29/2019,07/27/2018 Influenza Seasonal Injectable 04/05/2012 Pneumococcal Conjugate 20-Valent (PCV20) 024 Pneumococcal Polysaccharide (PPSV23) 12/21/2018 TD Preservative Free ([facility]) 02/15/2018 Tdap 09/29/2023 Family History Relation Name [...] Hemoglobin A1C 5.6 4.5 - 5.7 % [facility] Lot Number [id number] [facility] Expiration Date ,[id number] [facility] Blood 02/22/2025 10:2 6 AM EDT Maria A Soria APRN POINT OF CARE TEST ORDERABL ES Final Result [facility]
[address] [place] [address], * Urine Culture - Urine, Urine, Clean Catch (02/06/2025 10:33 AM EDT) Urine Culture Final report [facility] Result 1 No growth [facility] Urine Urine specimen obtained by clean catch procedure / Unknown 02/06/2025 10:33 AM EDT 02/06/2025 Comment:Urine Release to [facility] (AMBULATORY) - 02/08/2025 6:06 AM EDT Performed at: - [address] [id number] Concrete Pipe Machine Operator: Jacob Whaley PhD, Phone: [phone] Maria A Soria APRN MICROBIOLOGY - GENERAL ORDE RABLES Final Result [facility] (AMBULATORY) [address] [place] [address], [place] [phone] [facility] [address] [place] [address], [place] [phone] * Lipid Panel (08/22/2024 9:48 AM EST) Total Cholesterol 117 100 - 199 mg/dL [facility] Triglycerides 140 0 - 149 mg/dL [facility] HDL Cholesterol 40 >39 mg/dL [facility] VLDL Cholesterol Christian 24 5 - 40 mg/dL [facility] LDL Chol Calc (NIH) 53 0 - 99 mg/dL [facility] Blood Structure of left upper limb / Unknown 08/22/2024 9:48 AM EST 08/22/2024 Comment:Blood Release to pat i Narrative [facility] (AMBULATORY) - 08/23/2024 9:07 AM EST Performed at: 01 - [facility] [address] [place], [place] [id number] Concrete Pipe Machine Operator: Jacob Whaley PhD, Phone: [phone] Maria A Soria APRN LAB BLOOD ORDERABLES Final Result Performing Organization Address City/[facility]/ZIP Co de Phone Number [facility] (AMBULATORY) [address] [place] [address], [facility] [address] [place] [address], * Hepatitis C Antibody (07/23/2019 10:03 AM EST) Hepatitis C Ab Non-Reacti ve Non-Reacti ve 07/23/2019 6:31 PM EST [facility] Blood Venipuncture / Unknown 07/23/2019 10:03 AM EST 07/23/2019 10:38 AM EST Mukul Stevens MD LAB BLOOD ORDERABLES F inal Result [facility]
[address] [place] [address], from Last 3 Months or Most Recently [...] pulse or is breathing): Full Care Teams Nut Sorter Relationship Specialty Start Date End Date Maria A Soria APRN [address] [place] [address] PCP - General Family Medicine 02/15/23
--- OUTSIDE RECORDS SUMMARY | 2025-03-05 09:28 | XMS_ITS | Encounter Summary ---
Author Organization [employer] ([place], [place], [place], [place]) Address [address] [place] [address] Care Team Providers Care Stitch Welder Name Role Phone Unavailable Primary Care Provider Unavailabl e Encounter Details Date Type Department Care Team (Late st Contact Info) Description 08/03/2018 Transcribed Document [facility] [place] Family Medicine [address] [place] [address] ProviderLaury MD [address] [place] [address] Social History Tobacco Use Types Packs/Day [...] - Laury ProviderMD - 08/03/2018 7:32 PM ALLIANCE DIRECTOR [facility] ADDRESS [place], [place] [phone] Name:Crystal Archer Visit Date:08/03/2018 13:52:00 Emergency Department Care Providers: Physician: MEGHA MAN Physician: Our doctors and staff appreciate your choice of [facility] for your emergency medical care. Read these instructions carefully. Please call us if you have any questions about your medical problem. [facility] Emergency Department [phone] [facility] Emergency Department [phone] [facility] Emergency Department [phone] Patient Education Materials Gianni Crystal Jones has [...] them up o [facility] # [phone] o [facility] # [phone] o [facility] # [phone] ?? If you had cultures done and [...] quit. o National Network of Tobacco Cessation ZYoendrsg6-797-LRXU-NOW o [employer] o [employer] [phone] o Asi/Manuel Mccray [phone] FINANCIAL INFORMATION ?? [facility] provides financial counseling to anyone who requests our services. ?? Emergency Physicians are independently contracted to provide your care. You will receive a bill for the care provided to you by the Physician and/or the Physician Robotic Machine Tender Production. This will be a separate bill from [...] as recommended Patient Signature / or Patient Metal Fabricating Shop Helper Provider Signature Date documented in this encounter Plan of Treatment Not on file documented as of this encounter Visit Diagnoses Not on filedocumented in this encounter
--- OUTSIDE RECORDS SUMMARY | 2025-03-05 09:28 | XMS_ITS | Clinical Summary ---
Author Organization [facility] Address [address] [place] [address] Care Team Providers Care Glove Sewer Name Role Phone Jaquan Conley MD Primary Care Provider [phone] Social History Tobacco Use Types Packs/Day Years [...] TYPE. U CleanCatch 12/31/2024 11:47 AM EDT [facility] Urinalysis SS URINE COLOR YELLOW 12/31/2024 12:03 PM EDT [facility] Urinalysis SS URINE APPEARANCE SL CLOUDY 12/31/2024 12:03 PM EDT [facility] Urinalysis SS URINE SPECIFIC GRAVITY 1.021 1.001 - 1.030 12/31/2024 12:03 PM EDT [facility] Urinalysis SS URINE PH DIPSTICK 6.0 12/31/2024 12:03 PM EDT [facility] Urinalysis SS URINE LEUKOCYTE ESTERASE 500 Maty/uL Maty/ul 12/31/2024 12:03 PM EDT [facility] Urinalysis SS URINE NITRITE 2+(A) Negative 12/31/2024 12:03 PM EDT [facility] Urinalysis SS URINE PROTEIN DIPSTICK 10 mg/dL mg/dL 12/31/2024 12:03 PM EDT [facility] Urinalysis SS URINE GLUCOSE DIPSTICK NORMAL mg/dL 12/31/2024 12:03 PM EDT [facility] Urinalysis SS URINE KETONES DIPSTICK NEGATIVE Negative mg/dL 12/31/2024 12:03 PM EDT [facility] Urinalysis SS URINE UROBILINOGEN DIPSTICK NORMAL [...] UR MUCOUS PRESENT 12/31/2024 12:03 PM EDT [facility] Urinalysis SS UR SQUAMOUS EPITHELIAL CELLS 0-4 None /HPF 12/31/2024 12:03 PM EDT [facility] Urinalysis SS Urine 12/31/2024 9:28 AM EDT 12/31/2024 11:47 AM EDT [facility] LAB - 12/31/2024 12:05 [place] [address] Nikki Jeffery SHAMPOO ASSISTANT LAB URINE ORDERABLES Final Re sult Performing Organization Address City/State/[facility] [place] [address], [facility] Urinalysis Pathology Department [address] [place] [address] * CMV PCR Quant [[id number]] (12/31/2024 9:28 AM EDT) CMV DNA PCR NOT DETECTED Not Detected 7:49 AM EDT [facility] Molecular SS Blood 12/31/2024 9:28 AM EDT 12/31/2024 10:49 AM EDT [facility] LAB - 01/01/2025 7:49 AM EDT Performed by [facility], [address] [place] [address] [facility] LAB BLOOD ORDERABLES Final Re sult Performing Organization Address [facility] de Phone Number [facility] [address] [place] [address], [facility] Molecular SS Pathology Department [address] [place] [address] * BK Virus PCR Blood (12/31/2024 9:28 AM EDT) Pathologist [facility] BK VIRUS PCR QUAL, BLOOD NOT DETECTED Not Detected 01/01/2025 7:58 AM EDT [facility] TOMMIE Molecular SS Comment:The linear range of this test is 21.5 - 100,000,000 IU/mL. Any result of <21.5 or >100,000,000 indicates a true value outside of the range that can be accurately determined using our current methodology. Blood 12/31/2024 9:28 AM EDT 12/31/2024 10:49 AM EDT [facility] - 01/01/2025 7:58 AM EDT Performed by [facility], [address] [place] [address] [facility] LAB BLOOD ORDERABLES Final Re sult Performing Organization Address [facility] de Phone Number [facility] [address] [place] [address], [facility] TOMMIE Molecular Pathology Department [address] [place] [address] * (ABNORMAL) AUTODIFF (12/31/2024 9:28 AM EDT) [...] - 3.0 % 12/31/2024 10:10 AM EDT [facility] Heme Coag UA SS NEUT # 3.4 1.5 - 7.1 x10(3)/ul 12/31/2024 10:10 AM EDT [facility] Heme Coag UA SS LYMPH # 0.7(L) 1.0 - 3.5 x10(3)/ul 12/31/2024 10:10 AM EDT [facility] Heme Coag UA SS MONO # 0.5 0.0 - 1.0 x10(3)/ul 12/31/2024 10:10 AM EDT [facility] Heme Coag UA SS EOS # 0.0 0.0 - 0.7 x10(3)/ul 12/31/2024 10:10 AM EDT [facility] Heme Coag UA SS BASO # 0.0 0.0 - 0.3 x10(3)/ul 12/31/2024 10:10 AM EDT [facility] Heme Coag UA SS Blood 12/31/2024 9:28 AM EDT 12/31/2024 9:53 AM EDT [facility] LAB - 12/31/2024 10:10 AM EDT Ordered by Discern Expert. Performed by [facility], [address] [place] [address] Nikki Jeffery APRN LAB BLOOD ORDERABLES Final Re sult Performing Organization Address City/State/[facility] Co de Phone Number [facility] [address] [place] [address], [facility] Heme Coag UA SS Pathology Department [address] [place] [address] * (ABNORMAL) Tacrolimus level (12/31/2024 9:28 AM EDT) Tacrolimus Lvl 4.7(L) 5.0 - 20.0 ng/mL 12/31/2024 2:04 PM EDT [facility] Special Chemistry SS Comment: This test was performed, developed and its performance characteristics determined by at [facility], [address] [place] [address], [address], [place], using a Laboratory Developed Test Tandem Mass Spectrometry LC/MS/MS. It has not been cleared or approved by the [place] Food and Drug Administration. Validation data is available upon request. Blood 12/31/2024 9:28 AM EDT 12/31/2024 9:53 AM EDT [facility] - 12/31/2024 2:04 PM EDT Performed by [facility], [address] [place] [address] Nikki Jeffery SHAMPOO ASSISTANT LAB BLOOD ORDERABLES Final Re sult [facility] [address] [place] [address], [facility] Special Chemistry Pathology Department [address] [place] [address] * (ABNORMAL) CBC With Differential (12/31/2024 9:28 AM EDT) WBC 4.6 4.0 - 10.8 x10(3)/ul 12/31/2024 10:10 AM EDT L Heme Coag UA SS RBC 3.64(L) 3.77 - 5.16 x10(6)/ul 12/31/2024 10:10 AM EDT [facility] Heme Coag UA SS HGB 10.6(L) 12.0 - 16.0 Gram/dL 12/31/2024 10:10 AM EDT L Heme Coag UA SS Hematocrit 31.6(L) 35.0 - 45.0 % 12/31/2024 10:10 AM EDT L Heme Coag UA SS MCV 86.9 79.4 - 94.8 fL 12/31/2024 10:10 AM EDT [facility] Heme Coag UA SS MCH 29.2 25.6 - 32.2 pg 12/31/2024 10:10 AM EDT [facility] Heme Coag UA SS MCHC 33.6 32.3 - 36.5 Gram/dL 12/31/2024 10:10 AM EDT [facility] Heme Coag UA SS RDW 12.5 11.0 - 15.5 % 12/31/2024 10:10 AM EDT [facility] Heme Coag UA SS Platelets 224 140 - 420 x10(3)/ul 12/31/2024 10:10 AM EDT [facility] Heme Coag UA SS MPV 11.2 8.7 - 12.0 fL 12/31/2024 10:10 AM EDT [facility] Heme Coag UA SS SLIDE REVIEW NONE 12/31/2024 10:10 AM EDT [facility] CH Remisol 2.0 SS Blood 12/31/2024 9:28 AM EDT 12/31/2024 9:53 AM EDT [facility] - 12/31/2024 10:10 AM EDT Performed by [facility], [address] [place] [address] [facility] LAB BLOOD ORDERABLES Final Re sult Performing Organization Address [facility] de Phone Number [address] [address], [facility] Heme Coag UA Pathology Department [address] [place], [place] [address] CH Remisol 2.0 Pathology Department [address] [place] [address] * Phosphorus (12/31/2024 9:28 AM EDT) Phosphorus 3.1 2.5 - 5.0 mg/dL 12/31/2024 10:31 AM EDT [facility] CH Remisol 2.0 Blood 12/31/2024 9:28 AM EDT 12/31/2024 9:54 AM EDT [facility] - 12/31/2024 10:31 AM EDT Performed by [facility], [address] [place] [address] [facility] LAB BLOOD ORDERABLES Final Re sult Performing Organization Address [facility] Co de Phone Number [facility] [address] [place] [address], [facility] CH Remisol 2.0 Pathology Department [address] [place] [address] * (ABNORMAL) Magnesium (12/31/2024 9:28 AM EDT) Magnesium 1.8(L) 1.9 - 2.7 mg/dL 12/31/2024 10:31 AM EDT [facility] CH Remisol 2.0 SS Blood Venous Draw / Unknown 12/31/2024 9:28 AM EDT 12/31/2024 9:54 AM EDT [facility] - 12/31/2024 10:31 AM EDT Performed by [facility], [address] [place] [address] Nikki Jeffery SHAMPOO ASSISTANT LAB BLOOD ORDERABLES Final Re sult Performing Organization Address City/State/[facility] Co de Phone Number [facility] [address] [place] [address], [facility] CH Remisol 2.0 SS Pathology Department [address] [place] [address] * (ABNORMAL) Lipid panel (12/31/2024 9:28 AM [...] 9:28 AM EDT 12/31/2024 9:54 AM EDT [facility] - 12/31/2024 10:31 AM EDT Performed by [facility], [address] [place] [address] Nikki Jeffery SHAMPOO ASSISTANT LAB BLOOD ORDERABLES Final Re sult [facility] [address] [place] [address], [facility] CH Remisol 2.0 SS Pathology Department [address] [place] [address] * (ABNORMAL) Comprehensive metabolic panel (12/31/2024 9:28 AM EDT) Sodium 142 136 - 145 mmol/L 12/31/2024 10:31 AM EDT [facility] CH Remisol 2.0 SS Potassium 4.9 3.5 - 5.1 mmol/L 12/31/2024 10:31 AM EDT [facility] CH Remisol 2.0 SS Chloride 111(H) 98 - 110 mmol/L 12/31/2024 10:31 AM EDT [facility] CH Remisol 2.0 SS CO2 23 21 - 31 mmol/L 12/31/2024 10:31 AM EDT [facility] CH Remisol 2.0 SS Anion Gap 8.0 2.0 - 11.0 12/31/2024 10:31 AM EDT [facility] CH Remisol 2.0 SS Calcium 9.0 8.6 - 10.2 mg/dL 12/31/2024 10:31 AM EDT [facility] CH Remisol 2.0 SS Glucose 169(H) 74 - 109 mg/dL 12/31/2024 10:31 AM EDT [facility] CH Remisol 2.0 SS BUN 20 7 - 25 mg/dL 12/31/2024 10:31 AM EDT L CH Remisol 2.0 SS Creatinine 1.31(H) 0.60 - 1.20 mg/dL 12/31/2024 10:31 AM EDT [facility] CH Remisol 2.0 SS BUN/Creatinine Ratio [...] 9:28 AM EDT 12/31/2024 9:54 AM EDT [facility] - 12/31/2024 10:31 AM EDT Performed by [facility], [address] [place] [address] [place] Nikki Jeffery APRN LAB BLOOD ORDERABLES Final Re sult [facility] [address] [place] [address], [facility] Remisol 2.0 SS Pathology Department [address] [place] [address] * Urine culture (12/31/2024 9:17 AM EDT) Urine 12/31/2024 9:17 AM EDT 12/31/2024 12:37 PM EDT Narrative [facility] - 01/05/2025 6:37 AM EDT FREDDIE [...] Locations R1: This test was performed at: [facility], Pathology Department, [address] [place] [address], [facility]- , [place], us Non-Ulp Provider LAB MICROBIOLOGY - GENERAL ANABEL UGARTE Final Result Performing Organization Address [facility] Co de Phone Number [facility] [address] [place] [address] * Hepatitis C antibody (05/19/2023 8:10 AM EDT) Hep C Virus Ab NONREACTIVE Nonreactive 05/19/2023 12:09 PM EDT UL Core Remisol Blood 05/19/2023 8:10 AM EDT 05/19/2023 11:19 AM EDT Yue Kraft MD LAB BLOOD ORDERABLES Edited Resu lt - Final [facility] [address] [place] [address], [facility] Remisol Pathology Department [address] [place] [address] from Last 3 Months or Most Recently Relevant to Health Maintenance Insurance [place] [employer] Care Teams Glove Sewer Relationship Specialty Start Date End Date Jaquan Conley MD [address] [place] [address] [place] [phone] PCP - General Internal Medicine 09/18/20
--- OUTSIDE RECORDS SUMMARY | 2025-03-05 09:28 | XMS_ITS | Clinical Summary ---
Author Organization [employer] ([place], [place], [place], [place]) Address [address] [place] [address] Care Team Providers Care Barrel Roller Operator Name Role Phone Unavailable Primary Care [...] Date Blaine rded Speak language other than Spanish at home Not on file 07/30/2023 Want [...] patient's age to complete this topic Insurance [facility] Advance Directives For more information, please contact: [phone] * Full Code (Latest Code Status on File) Date Activated Date Inactivated Comments 09/23/2022 6:27 AM 09/23/2022 11:31 AM
--- OUTSIDE RECORDS SUMMARY | 2025-03-05 09:28 | XMS_ITS | Encounter Summary ---
Author Organization [employer] ([place], [place], [place], [place]) Address [address] [place] [address] Care Team Providers Care Auto Repair Technician Name Role Phone Unavailable Primary Care Provider Unavailabl e Encounter Details Date Type Department Care Team (Late st Contact Info) Description 08/03/2018 Transcribed Document [facility] Family Medicine [address] [place] [address] ProviderLaury MD [address] [place] [address] Social History Tobacco Use Types Packs/Day [...] - Laury ProviderMD - 08/03/2018 7:32 PM [facility] [place], [place] [phone] Name:Crystal Archer Visit Date:08/03/2018 13:52:00 Emergency Department Care Providers: Physician: MEGHA MAN Physician: Our doctors and staff appreciate your choice of [facility] for your emergency medical care. Read these instructions carefully. Please call us if you have any questions about your medical problem. [facility] Emergency Department [phone] [facility] Emergency Department [phone] [facility] Emergency Department [phone] Patient Education Materials Gianni Crystal Jones has [...] x-ray department to pick them up o [facility] # [phone] o [facility] # [phone] o [facility] # [phone] ?? If you had cultures done and [...] quit. o National Network of Tobacco Cessation [id number]-TZTX-NOW o [employer] o [employer] [phone] o Sai/Manuel Mccray [phone] FINANCIAL INFORMATION ?? [facility] provides financial counseling to anyone who requests our services. ?? Emergency Physicians are independently contracted to provide your care. You will receive a bill for the care provided to you by the Physician and/or the Physician Mobile Home Set Up Person. This will be a separate bill from [...] as recommended Patient Signature / or Patient Client Relationship Executive Provider Signature Date Date/Time 08/03/2018 14:32 Saint [...]
[2025-03-05 10:04] LABS: Hematocrit 37.1 % (37.0-47.0); Hemoglobin 12.3 g/dL (12.2-16.2); Immature Granulocytes % 0.4 %; Mean Corpuscular HGB Conc 33.2 g/dL (31.8-35.4); Mean Corpuscular Hemoglobin 29.8 pg (27.0-31.2); Mean Corpuscular Volume 89.8 fl (81-99); Nucleated Red Blood Cells % 0 %; Platelet Count 190 K/mm3 (142-424); Red Blood Count 4.13 M/mm3 (4.20-5.40); Red Cell Distribution Width-SD 42.9 fL; White Blood Count 2.8 K/mm3 (4.8-10.8)
[2025-03-05 10:22] LABS: Albumin Level 4.6 g/dl (3.5-5.0); Chloride 114 mmol/L (98-107); Potassium 5.6 mmoL/L (3.5-5.1); Sodium 145 mmol/L (136-145)
[2025-03-05 10:25] LABS: Albumin Level 4.7 g/dl (3.5-5.0); Chloride 113 mmol/L (98-107); Sodium 144 mmol/L (136-145)
[2025-03-05 10:25] LABS: Anion Gap 16.6 mEq/L (5-15); Blood Urea Nitrogen 16 mg/dl (7-17); Calcium 10.1 mg/dl (8.4-10.2); Carbon Dioxide 20 mmol/L (22.0-30.0); Creatinine,Serum 0.80 mg/dl (0.52-1.04); Estimated Glomerular Filt Rate 82 ml/min (>60); GFR (African American) 99 ML/MIN (>60); Glucose 105 mg/dl (74-100); Phosphorous 3.5 mg/dl (2.5-4.5)
[2025-03-05 10:26] LABS: Potassium 5.7 mmoL/L (3.5-5.1)
[2025-03-05 10:28] LABS: Alanine Aminotransferase 18 U/L (12-78); Albumin/Globulin Ratio 2.0 (1.1-1.8); Alkaline Phosphatase 84 U/L (38-126); Anion Gap 14.7 mEq/L (5-15); Aspartate Amino Transferase 24 U/L (14-36); Bilirubin,Total 0.6 mg/dl (0.2-1.3); Blood Urea Nitrogen 16 mg/dl (7-17); Carbon Dioxide 22 mmol/L (22.0-30.0); Creatinine,Serum 0.80 mg/dl (0.52-1.04); Estimated Glomerular Filt Rate 82 ml/min (>60); GFR (African American) 99 ML/MIN (>60); Globulin 2.3 g/dL (1.3-3.2); Phosphorous 3.4 mg/dl (2.5-4.5); Total Protein,Serum 7.0 g/dl (6.3-8.2)
[2025-03-05 10:29] LABS: Calcium 10.1 mg/dl (8.4-10.2); Glucose 105 mg/dl (74-100); Magnesium 1.4 mg/dl (1.6-2.3)
[2025-03-06 18:23] LABS: BKV DNA, Quant PCR, Plasma Negative (Negative)
== END 2025-03-05 23:59 | disposition home or self-care (01) ==
LOC: LAB 09:15
PROVIDERS: Internal Medicine Nephrology; PCP Nurse Practitioner; Visit Provider Nurse Practitioner Family
DX: Z94.0 Kidney transplant status (principal)
CPT/HCPCS: 36415; 80053; 80069; 80197; 83735; 84100; 85025

== ENCOUNTER 2025-04-02 11:00 | Outpatient (CLI) | payer MEDICAID, SELFPAY ==
--- OUTSIDE RECORDS SUMMARY | 2025-02-06 10:45 | XMS_ITS | Encounter Summary ---
Author Organization [facility] Address [address] [place] [address] Care Team Providers Care Clammer Name Role Phone Maria A Soria APRN Primary Care Provider [phone] Reason for Visit * Reason Comments Dysuria Encounter Details Date Type Department Care Team (Late st Contact Info) Description 02/06/2025 10:45 AM EDT Office Visit [facility] [address] [place] [phone] Maria A Soria APRN [address] [place] [address] Dysuria (Primary Dx) Social History [...] emptying. Contacted her transplant medical team at [facility] this morning with her symptoms set. She [...] emptying. Contacted her transplant medical team at [facility] this morning with her symptoms set. She [...] LAPAROSCOPIC INDUCED 2006 [facility] History reviewed. No pertinent family history. Vital [...] emptying. Contacted her transplant medical team at [facility] this morning with her symptoms set. She [...] 10:33 AM EDT 02/06/2025 Comment:Urine Release to [facility] Aristeo [facility]) - 02/08/2025 6:06 AM EDT Performed at: - [facility] [address] [id number] Ict Help Desk Technician: Jacob Whaley PhD, Phone: [phone] us Maria A Soria APRN MICROBIOLOGY - GENERAL ANABEL U[place]AR[place] Final Result [facility] [address] [place] [address], [place] [phone] [facility] [address] [place] [address], [place] [phone] documented in this encounter Visit Diagnoses Diagnosis Dysuria- Primary documented in this encounter Care Teams Clammer Relationship Specialty Start Date End Date Maria A Soria APRN [address] [place] [address] PCP - General Family Medicine 02/15/23 documented as of this encounter
--- OUTSIDE RECORDS SUMMARY | 2025-02-22 10:30 | XMS_ITS | Encounter Summary ---
Author Organization [facility] Address [address] [place] [address] Care Team Providers Care Certified Rehabilitation Counselor Name Role Phone Maria A Soria APRN Primary Care Provider [phone] Reason for Visit * Reason Comments Pre-op Exam Encounter Details Date Type Department Care Team (Late st Contact Info) Description 02/22/2025 10:30 AM EDT Office Visit [facility] [address] [place] [phone] Maria A Soria APRN [address] [place] [address] Type 2 diabetes mellitus with hyperglycemia, with long-term current use of insulin (Primary Dx); Essential hypertension; History of bariatric surgery; History of drug abuse; Mixed hyperlipidemia; Persistent depressive disorder; Pre-operative clearance; Renal transplant recipient Social History Tobacco Use [...] Sign Reading Time Taken Comments Blood Pressure 106/74 02/22/2025 10:16 AM EDT Pulse 88 02/22/2025 10:16 AM EDT Temperature 36.8 C (98.2 F) 02/22/2025 10:16 AM EDT Respiratory Rate 16 02/22/2025 10:16 AM EDT Oxygen Saturation 98% 02/22/2025 10:16 AM EDT Inhaled Oxygen Concentration - - Weight 54.9 kg (121 lb) 02/22/2025 10:16 AM EDT Height 162.6 cm (5' 4 ) 02/22/2025 10:16 AM EDT Body Mass Index 20.77 02/22/2025 10:16 AM EDT documented in this encounter Progress Notes * Maria A Soria APRN - 02/25/2025 7:40 AM EDTAssociated Problem(s): Renal transplant recipient On December 02, 2023 she received a call from the [facility] that they had a match for herrenal transplant. Patient underwent successful renal transplant on December 03, 2023. She is had a very uneventful postoperative period, stating her kidney woke up immediately upon placement. She was only hospitalized for 5 days postoperatively. She is currently using immunosuppression therapy including Prograf 0.5 mg twice daily and CellCept 1000 mg twice daily. Continues to be followed closely by [facility] transplant as well as Dr. Stevens at [facility]. * Maria A Soria APRN - 02/25/2025 7:40 AM EDTAssociated Problem(s): Pre- operative clearance Patient with upcoming plans for uterine ablation due to heavy menstrual bleeding. Followed by Dr. Lynch at [facility]. In review of most recent labs and patient's current physical status she would be considered low risk to pursue with this intervention. No past history of difficulty with extubation or adverse reactions to anesthesia. 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 * Maria A Soria APRN - 02/25/2025 7:39 AM EDTAssociated Problem(s): History of bariatric surgery Patient underwent sleeve gastrectomy in December 2019 with maximum weight of 398 pounds reported. During her last visit a little over a year ago she was noted to be 157 pounds. Patient states immediatelyafter renal transplant she liberalized her diet causing a 20 pound weight gain. Subsequently she was given GLP-1 therapy for quite some time by her berry picker machine operator. Patient has not been on GLP- 1 for quite some time, but has continued with weight loss due to stress. Today she weighs in 121 pounds. * Maria A Soria APRN - 02/25/2025 7:38 AM EDTAssociated Problem(s): Essential hypertension Blood pressure very well-controlled without antihypertensives at this time, 106/74. Patient was able to discontinue antihypertensives after significant weight loss status post bariatric surgery. * Maria A Soria APRN - 02/25/2025 7:37 AM EDTAssociated Problem(s): Depression Patient has longstanding issues with depression due to an unfortunate childhood with alcohol, drug addicted mother. She also has past history of drug abuse herself. She has utilized antidepressants in the past, having no benefit from initiation of bupropion, adverse effects from fluoxetine and venlafaxine. Patient states she is currently experiencing mood stability without antidepressants. * Maria A Soria APRN - 02/22/2025 10:52 AM EDTAssociated Problem(s): Type 2 diabetes mellitus with hyperglycemia, with long-term current use of insulin Patient followed by endocrinology at the [facility]. Patient currently utilizes insulin pump and GCS with excellent glucose control, A1c 5.6% in office today. Her regimen currently includes NovoLog as titrated with her insulin pump. Also utilizes lispro sliding scale before meals if needed. * Maria A Soria APRN - 02/22/2025 10:30 AM EDT Images from the original note were not included. Office Note Name: Crystal Archer : 1990 Chief Complaint Pre-op Exam Subjective History of Present Illness: Crystal Archer is a 34 y.o. female who presents today for operative clearance prior to undergoing uterine ablation at [facility]. Patient is followed by Dr. Lynch. She is experiencedheavy uterine bleeding with menstruation for quite some time now. Patient followed for chronic conditions including type 2 diabetes, hypertension, hyperlipidemia. Patient has history including renal transplant, previously requiring renal replacement therapy, also status post bariatric surgery. Patient has excellent blood pressure control in office today, 106/74. She has not required the use of antihypertensive agents since significant weight loss after her sleeve gastrectomy. On December 02, 2023 she received a call from the [facility] that they had a match for her renal transplant. Patient underwent successful renal transplant on December 03, 2023. She is had a very uneventful postoperative period, stating her kidney woke up immediately upon placement. She was only hospitalized for5 days postoperatively. She is currently using immunosuppression therapy including Prograf 0.5 mg twice daily and CellCept 1000 mg twice daily. Continues to be followed closely by [facility] transplant as well as Dr. Stevens at [facility]. Recent renalfunction shows creatinine of 1.31 and GFR of 54. Patient followed by endocrinology at the [facility]. Patient currently utilizes insulin pump and GCS with excellent glucose control, A1c 5.6% in office today. Patient with longstanding drug history, methamphetaminewas her drug of choice. 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 She has no particular complaints or concerns Review of Systems Constitutional: Negative for chills, fatigue and fever. HENT: Negative for dental problem and trouble swallowing. Eyes: Negative for visual disturbance. Respiratory: Negative for cough, chest tightness, shortness of breath and wheezing. Cardiovascular: Negative for chest pain, palpitations and leg swelling. Gastrointestinal: Negative for abdominal pain, constipation, diarrhea, nausea and vomiting. Endocrine: Negative for polydipsia and polyuria. Genitourinary: Positive for menstrual problem. Negative for decreased libido, difficulty urinating,dysuria, flank pain, frequency, hematuria, urgency, vaginal discharge and vaginal pain. Musculoskeletal: Negative for arthralgias and myalgias. Skin: Negative for rash and bruise. Neurological: Negative for dizziness, weakness, light-headedness, numbness and headache. Psychiatric/Behavioral: Positive for stress. Negative for agitation, [...] 10/17/2012 SECTION GASTRIC SLEEVE LAPAROSCOPIC INDUCED 2006 [facility] History reviewed. No pertinent family history. Vital Signs BP 106/74 (BP Location: Left arm, Patient Position: Sitting, Cuff Size: Adult) Pulse 88 Temp 98.2 ??F (36.8 ??C) (Temporal) Resp 16 Ht 162.6 cm (64 ) Wt 54.9 kg (121 lb) SpO2 98% BMI 20.77 kg/m?? Estimated body mass index is 20.77 kg/m?? as calculated from the following: Height as of this encounter: 162.6 cm (64 ). Weight as of this encounter: 54.9 kg (121 lb). Facility age limit for growth %rylan is 20 years. Physical Exam Vitals reviewed. HENT: Head: Normocephalic and atraumatic. Right Ear: [...] soft. Musculoskeletal: General: Normal range of motion. Skin: General: Skin is warm and dry. Capillary Refill: Capillary refill takes less than 2 seconds. Neurological: Mental Status: She is alert and oriented to person, place, and time. Psychiatric: Mood and Affect: Mood normal. Behavior: Behavior normal. POCT Results (if applicable): Results for orders placed or performed in visit on 02/22/25 POC Glycosylated Hemoglobin (Hb A1C) Collection Time: 02/22/25 10:26 AM Specimen: Blood Result Value Ref Range Hemoglobin A1C 5.6 4.5 - 5.7 % Lot Number [id number] Expiration Date Assessment and Plan Diagnoses and all orders for this visit: 1. Type 2 diabetes mellitus with hyperglycemia, with long-term current use of insulin (Primary) Assessment & Plan: Patient followed by endocrinology at the [facility]. Patient currently utilizes insulin pump and GCS with excellent glucose control, A1c 5.6% in office today. Her regimen currently includes NovoLog as titrated with her insulin pump. Also utilizes lispro sliding scale before meals if needed. Orders: - POC Glycosylated Hemoglobin (Hb A1C) 2. Essential hypertension Assessment & Plan: Blood pressure very well-controlled without antihypertensives at this time, 106/74. Patient was able to discontinue antihypertensives after significant weight loss status post bariatric surgery. 3. History of bariatric surgery Assessment & Plan: Patient underwent sleeve gastrectomy in December 2019 with maximum weight of 398 pounds reported. During her last visit a little over a year ago she was noted to be 157 pounds. Patient states immediatelyafter renal transplant she liberalized her diet causing a 20 pound weight gain. Subsequently she was given GLP-1 therapy for quite some time by her berry picker machine operator. Patient has not been on GLP- 1 for quite some time, but has continued with weight loss due to stress. Today she weighs in 121 pounds. 4. 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 5. Mixed hyperlipidemia Assessment & Plan: Patient's lipid well-controlled with atorvastatin 40 mg daily 6. Persistent depressive disorder Assessment & Plan: Patient has longstanding issues with depression due to an unfortunate childhood with alcohol, drug addicted mother. She also has past history of drug abuse herself. She has utilized antidepressants in the past, having no benefit from initiation of bupropion, adverse effects from fluoxetine and venlafaxine. Patient states she is currently experiencing mood stability without antidepressants. 7. Pre-operative clearance Assessment & Plan: Patient with upcoming plans for uterine ablation due to heavy menstrual bleeding. Followed by Dr. Lynch at [facility]. In review of most recent labs and patient's current physical status she would be considered low risk to pursue with this intervention. No past history of difficulty with extubation or adverse reactions to anesthesia. Her glucose is very well-controlled, A1c 5.6% in office today 8. Renal transplant recipient Assessment & Plan: On December 02, 2023 she received a call from the [facility] that they had a match for herrenal transplant. Patient underwent successful renal transplant on December 03, 2023. She is had a very uneventful postoperative period, stating her kidney woke up immediately upon placement. She was only hospitalized for 5 days postoperatively. She is currently using immunosuppression therapy including Prograf 0.5 mg twice daily and CellCept 1000 mg twice daily. Continues to be followed closely by [facility] transplant as well as Dr. Stevens at [facility]. BMI is within normal parameters. No other follow-up for BMI required. Follow Up Return if symptoms worsen or fail to improve. Maria A Soria APRN documented in this encounter Plan of Treatment Not on file documented as of this encounter Procedures Procedure Name Priority Date/Time Associated Diagnosis Comments POCT GLYCOSYLATED HEMOGLOBIN (HGB A1C) Routine 02/22/2025 10:26 AM EDT Type 2 diabetes mellitus with hyperglycemia, with long-term current use of insulin documented in this encounter Results * POC Glycosylated Hemoglobin (Hb A1C) (02/22/2025 10:26 AM EDT) Hemoglobin A1C 5.6 4.5 - 5.7 % [facility] Lot Number [id number] [facility] Expiration Date [address] [facility] Blood 02/22/2025 10:2 6 AM EDT Maria A Soria APRN POINT OF CARE TEST ORDERABL ES Final Result [facility]
[address] [place] [address], documented in this encounter Visit Diagnoses Diagnosis Type 2 diabetes mellitus with hyperglycemia, with long-term current use of insulin- Primary Essential hypertension Unspecified essential hypertension History of bariatric surgery Bariatric surgery status History of drug abuse Other, mixed, or unspecified nondependent drug abuse, in remission Mixed hyperlipidemia Persistent depressive disorder Pre-operative clearance Unspecified pre-operative examination Renal transplant recipient documented in this encounter Care Teams Certified Rehabilitation Counselor Relationship Specialty Start Date End Date Maria A Soria APRN [address] [place] [phone] PCP - General Family Medicine 02/15/23 documented as of this encounter
--- OUTSIDE RECORDS SUMMARY | 2025-03-08 14:15 | XMS_ITS | Encounter Summary ---
Author Organization [facility] Address [address] [place] [address] Care Team Providers Care Moth Proofer Name Role Phone Maria A Soria APRN Primary Care Provider +1- [phone] Reason for Visit * Reason Comments Nasal Congestion Sore Throat Cough Headache Encounter Details Date Type Department Care Team (Late st Contact Info) Description 03/08/2025 2:15 PM EDT Office Visit [facility] [address] [place] [phone] Maria A Soria APRN [address] [place] [address] Sore throat (Primary Dx); Strep [...] SECTION GASTRIC SLEEVE LAPAROSCOPIC INDUCED 2006 [facility] History reviewed. No pertinent family history. Vital [...] Screen Negative Negative, VALID, INVALID, Not Performed [facility] Internal Control Passed Passed [facility] Lot Number [id number] [facility] Expiration Date [facility] Swab 03/08/2025 1:57 PM EDT Maria A Soria APRN POINT OF CARE TEST ORDERABL ES Final Result [facility]
[address] [place] [address], * Covid-19 + Flu A&B AG, Veritor [...] pharyngitis documented in this encounter Care Teams Moth Proofer Relationship Specialty Start Date End Date Maria A Soria APRN [address] [place], [place] [id number] PCP - General Family Medicine 02/15/23 documented as of this encounter
--- OUTSIDE RECORDS SUMMARY | 2025-04-02 11:17 | XMS_ITS | Encounter Summary ---
Author Organization [facility] Address [address] [id number] Care Team Providers Care Regulation Supervisor Name Role Phone Maria A Soria QUILLER HAND Primary Care Provider [phone] Encounter Details Date Type Department Care Team (Late st Contact Info) Description 02/08/2025 Results Follow-Up [facility] [address] [place] [phone] Maria A Soria, QUILLER HAND [address] [place] [address] Social History Tobacco Use Types [...] on filedocumented in this encounter Care Teams Regulation Supervisor Relationship Specialty Start Date End Date Maria A Soria, ANJU [address] [id number] PCP - General Family Medicine 02/15/23 documented as of this encounter
--- OUTSIDE RECORDS SUMMARY | 2025-04-02 11:17 | XMS_ITS | Encounter Summary ---
Author Organization [facility] Address [address] [place] [address] Care Team Providers Care Monitor Worker Name Role Phone Jaquan Conley MD Primary Care Provider + [phone] Encounter Details Date Type Department Care Team (Late st Contact Info) Description 11/10/2018 [facility] Encounter Historical OTTR [address] [place] [address] Yris Schwarz, RN CH-TRANSPLANT ADMINISTRATION Social History [...] . She stated she is going to [facility] because they told her she can continue [...] OTTR. * Progress Notes - Daisy Gaming LCSW - 11/10/2018 10:50 AM EDT SW received message from [facility] rehabilitation aide/scheduler that the pt contacted her to cancel psych appt, as she has decided to pursue listing at [facility], instead of . Note to Coord. and Roustabout Head for awareness. * Progress Notes - MárquezIndira - 11/09/2018 4:12 PM EDT Mailed 11/24/18 [facility] psych eval appt schedule w/ map to pt. * Progress Notes - Daisy Gaming LCSW - 11/08/2018 8:09 AM EDT Per [facility], pt has an appt with [facility] on 11/24/18 at 1:30 pm. Note to Coordinator andCarloz for awareness. * Progress Notes - Daisy Gaming LCSW - 11/02/2018 11:14 AM EDT [facility] has sent another email following up on psych eval referral. SW will continue to follow. * Progress Notes - Daiys Gaming LCSW - 10/26/2018 3:02 PM EDT [facility] has sent another email to follow up on request for psych eval appt. [facility] will continue to follow. * Progress Notes - Daisy Gaming, STORE OPERATIONS ASSOCIATE - 10/20/2018 9:03 AM EDT has emailed [...] between 9 and 12 due to child adolescent psychiatrist issues. Forwarding communication to . * Progress Notes - Hilaria Hsu - 10/18/2018 11:23 AM EDT LVM with pt to return call to discuss committee meeting * Progress Notes - Daisy Gaming LCSW - 10/17/2018 3:52 PM EDT evaluation completed [...] However, pt is also considering going to [facility] since she was told they are less [...] @ 0830. Updated APM, SCM, OTTR, and [place]. Will call pt and mail updated ppw. [...] coverage plan. * Progress Notes - Yris Shcwarz - 08/22/2018 1:59 PM EST Patient returned [...] from pt asking for call back at [phone] to talk about a living donor. Called and spoke w/ pt. States she has several potential living donors and they have questions about the process, testing, and requirements. Informed pt that her potential living donors can call [phone] to discuss this and receive more info, [...] packet to pt and cc'd referring MD. [facility] [phone] [id number] 81. documented [...] Interface us Historical Provider LAB BLOOD ORDERABLES Final R esult EXTERNAL LAB documented in this encounter Visit Diagnoses Not on filedocumented in this encounter Care Teams Monitor Worker Relationship Specialty Start Date End Date Jaquan Conley MD [address] [place] [address] PCP - General 11/28/20 documented as of this encounter
--- OUTSIDE RECORDS SUMMARY | 2025-04-02 11:17 | XMS_ITS | Clinical Summary ---
Author Organization [facility] Address [address] [place] [address] Care Team Providers Care Yard Clerk Name Role Phone Yang, Maria A Doyle APRN Primary Care Provider [phone] Allergies Active Allergy Reactions Criticality Noted Date Comments Ibuprofen Other (See Comments) High 03/12/2019 end stage kidney failure Medications atorvastatin (LIPITOR) 40 MG tablet TAKE 1 TABLET EVERY DAY 0 6 Active sodium bicarbonate 650 MG tablet Take 2 tablets by mouth 2 (Two) Times a Day. 240 tablet 1 8 Active insulin lispro (humaLOG) 100 UNIT/ML injection [...] PUMP TO MAX DAILY DOSE 100 1 Active tacrolimus (PROGRAF) 0.5 MG capsule Take 1 capsule by mouth 2 (Two) Times a Day. Active mycophenolate (CELLCEPT) 500 MG tablet Take 2 tablets by mouth 2 (Two) Times a Day. Active famotidine (PEPCID) 40 MG tablet Take 1 tablet by mouth Daily. Active vitamin D (ERGOCALCIFEROL ) 1.25 MG (28450 UT) capsule capsule Take 1 capsule by mouth once a week 12 capsule 5 Active cephalexin (KEFLEX) 500 MG capsuleIndicati ons:Strep pharyngitis Take 1 capsule by mouth 2 (Two) Times a Day for 7 days. 14 capsule 03/15/20 25 Active Problems Problem Noted Date Diagnosed Date Strep pharyngitis 03/15/2025 Assessment & Plan (03/15/2025 5:24 PM EDT): Patient testing negative for COVID, flu. Her rapid strep test is negative, however on physical exam she has noted to have pharyngeal erythema, bilateral red beefy tonsils as well as exudate. Her son did test positive for strep last week. Subsequently will treat with cephalexin as directed. We discussed available conservative analgesic measures. Patient advised she will need new toothbrush in 3 to 4 days Pre-operative clearance 02/22/2025 Assessment & Plan (02/25/2025 7:40 AM EDT): Patient with upcoming plans for uterine ablation due to heavy menstrual bleeding. Followed by Dr. Lynch at [facility]. In review of most recent labs [...] emptying. Contacted her transplant medical team at [facility] this morning with her symptoms set. She [...] Plan (10/04/2024 3:33 PM EDT): Valuated in [place] ED for the same approximately 1 month [...] available. I have also requested records from [facility] ED visit which supposedly includes some [...] 2023 she received a call from the [facility] that they had a match for her [...] daily. Continues to be followed closely by [facility] transplant as well as Dr. Stevens at [facility]. Assessment & Plan (08/22/2024 11:22 AM EST): On December 02, 2023 she received a call from the [facility] that they had a match for her [...] daily. Continues to be followed closely by [facility] transplant as well as Dr. Stevens at [facility] locally. Assessment & Plan (06/07/2024 12:35 PM EST): Patient last evaluated in our office a little over 1 year ago in April 2023. At that time she was suffering from end-stage renal disease due to diabetic nephropathy, performing home peritoneal dialysis nightly. On December 02, 2023 she received a call from the [facility] that they had a match for her [...] daily. Continues to be followed closely by [facility] transplant as well as Dr. Stevens at [facility] locally. Annual physical exam 03/15/2023 Cervical cancer screening 03/15/2023 Type 2 diabetes mellitus wit h hyperglycemia, with long-term current use of insulin 02/15/2023 Assessment & Plan (02/25/2025 7:41 AM EDT): Patient followed by endocrinology at the [facility]. Patient currently utilizes insulin pump [...] by Dr. Stevens at [facility]. Working towards renal transplant with [facility].. Assessment & Plan (03/15/2023 5:10 PM EDT): Etiology of end-stage renal disease appears to be hypertensive nephrosclerosis as well as diabetic nephropathy. She was a noncompliant type I diabetic for many years, diagnosed at the age of 12. She is currently performing home peritoneal dialysis nocturnally 6 days/week. Working towards renal transplant with [facility]. Followed by [facility] H[facility] C[facility]. Assessment & Plan (02/15/2023 3:01 PM EDT): Etiology of end-stage renal disease appears to be hypertensive nephrosclerosis as well as diabetic Nephropathy. She was a noncompliant type I diabetic for many years, diagnosed at the age of 12. She is currently performing home peritoneal dialysis nocturnally 6 days/week. Working towards renal transplant with [facility]. To pursue transplant services at [facility] [...] therapy for quite some time by her apprentice stylist. Patient has not been on GLP-1 for [...] been started on GLP-1 therapy by her apprentice stylist and is back down to 157 pounds [...] of 107. She reports she saw her third mate who wanted to increase her blood pressure medications but she refused stating she knew she stopped the medications her blood pressure would return to normal. She is now off both BuSpar and venlafaxine with blood pressure 110/74 in office today. Patient feels her mood is stable currently without medications due to some decrease stressors in the home. Her [id number] with whom she help caregive from Valentina's [...] to that presentation she was evaluated at [facility] with respiratory issues, tested negative for COVID [...] sneezing. She was a originally evaluated at [facility] over 1 week ago with respiratory [...] parasites and C. difficile toxin. 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 and bone disorder [...] Encounters Date Type Department Care Team Description 03/08/2025 2:15 PM EDT Office Visit [facility] [address] [place] [address] [place] BROWN [address] Maria A Soria, ANJU Sore throat (Primary Dx); Strep pharyngitis 03/08/2025 Travel 02/26/2025 Telephone [facility] [address] [place] [address] [place] [address] Maria A Soria APRN 02/22/2025 10:30 AM EDT Office Visit [facility] [address] [place] [address] [place] [address] Maria A Soria, ANJU Type 2 diabetes mellitus with hyperglycemia, with long-term current use of insulin (Primary Dx); Essential hypertension; History of bariatric surgery; History of drug abuse; Mixed hyperlipidemia; Persistent depressive disorder; Pre-operative clearance; Renal transplant recipient 02/22/2025 Travel 02/08/2025 Results Follow-Up [facility] [address] [place] [address] [place] [address] Maria A Soria APRN 02/06/2025 10:45 AM EDT Office Visit [facility] [address] [place] [address] [place] [address] Maria A Soria, ANJU Dysuria (Primary Dx) 02/06/2025 Travel 02/04/2025 Refill [facility] [address] [place] [address] [place] [address] Maria A Soria APRN 02/03/2025 Refill [facility] [address] [place] [address] [place] [address] Maria A Soria, ANJU from Last 3 [...] Pressure 106/74 02/22/2025 10:16 AM EDT Pulse 100 03/08/2025 1:46 PM EDT Temperature 36.8 C (98.2 F) 03/08/2025 1:46 PM EDT Respiratory Rate 16 03/08/2025 1:46 PM EDT Oxygen Saturation 98% 03/08/2025 1:46 PM EDT Inhaled Oxygen Concentration - - Weight 54.9 kg (121 lb) 03/08/2025 1:46 PM EDT Height 162.6 cm (5' 4 ) 03/08/2025 1:46 PM EDT Body Mass Index 20.77 03/08/2025 1:46 PM EDT Plan of Treatment Health Maintenance [...] Name Priority Date/Time Associated Diagnosis Comments POCT RAPID STREP A Routine 03/08/2025 1: 57 PM EDT Sore throat COVID-19 + FLU A&B AG, VERITOR Routine 03/08/2025 1:57 PM EDT Sore throat POCT GLYCOSYLATED HEMOGLOBIN (HGB A1C) Routine 02/22/2025 [...] Recently Relevant to Health Maintenance Results * Covid-19 + Flu A&B AG, Veritor (03/08/2025 1:57 PM EDT) SARS Antigen Not Detected Not Detected, Presumptive Negative Influenza A Antigen DANICA Not Detected Not Detected Influenza B Antigen DANICA Not Detected Not Detected Internal Control Passed Passed Lot Number [id number] Expiration Date Swab 03/08/2025 1:57 PM EDT us Maria A Soria APRN POINT OF CARE TEST ORDERABL ES Final Result * POC Rapid Strep A (03/08/2025 1:57 PM EDT) Pathologist [facility] Rapid Strep A Screen Negative Negative, VALID, INVALID, Not Performed [facility] Internal Control Passed Passed [facility] Lot Number [id number] [facility] Expiration Date [facility] Swab 03/08/2025 1:57 PM EDT us Maria A Soria APRN POINT OF CARE TEST ORDERABL ES Final Result [facility]
[address] [place] [address], * POC Glycosylated Hemoglobin (Hb A1C) (02/22/2025 10:26 AM EDT) Pathologist [facility] Hemoglobin A1C 5.6 4.5 - 5.7 % [facility] Lot Number [id number] [facility] Expiration Date [facility] Blood 02/22/2025 10:2 6 AM EDT us Maria A Soria RUNNING INSTRUCTOR POINT OF CARE TEST ORDERABL ES Final Result [facility]
[address] [place] [address], * Urine Culture - Urine, Urine, Clean Catch (02/06/2025 10:33 AM EDT) Urine Culture Final report [facility] Result 1 No growth [facility] Urine Urine specimen obtained by clean catch procedure / Unknown 02/06/2025 10:33 AM EDT 02/06/2025 Comment:Urine Release to [facility]) - 02/08/2025 6:06 AM EDT Performed at: 01 [address] [place], [place] [id number] Chainman: Jacob Whaley PhD, Phone: [phone] Maria A Soria APRN MICROBIOLOGY - GENERAL ORDE RABLES Final Result [facility] [address] [place] [address], [place] [phone] [facility] [address] [place] [address], [place] [phone] * Lipid Panel (08/22/2024 9:48 AM EST) [...] 9:48 AM EST 08/22/2024 Comment:Blood Release to [facility] - 08/23/2024 9:07 AM EST Performed at: - [address] [id number] Chainman: Jacob Whaley PhD, Phone: [phone] Maria A Soria APRN LAB BLOOD ORDERABLES Final Result [facility] [address] [place] [address], [place] [phone] [facility] [address] [place] [address], [place] [phone] * Hepatitis C Antibody (07/23/2019 10:03 AM EST) Hepatitis C Ab Non-Reacti ve Non-Reacti ve 07/23/2019 6:31 PM EST [facility] Blood Venipuncture / Unknown 07/23/2019 10:03 AM EST 07/23/2019 10:38 AM EST Mukul Stevens MD LAB BLOOD ORDERABLES F inal Result [facility]
[address] [place] [address], from Last 3 Months or Most Recently [...] pulse or is breathing): Full Care Teams Yard Clerk Relationship Specialty Start Date End Date Maria A Soria APRN [address] [place] [address] PCP - General Family Medicine 02/15/23
--- OUTSIDE RECORDS SUMMARY | 2025-04-02 11:17 | XMS_ITS | Encounter Summary ---
Author Organization [facility] Address [address] [place] [address] Care Team Providers Care Drop Wire Aliner Name Role Phone Maria A Soria APRN Primary Care Provider [phone] Reason for Visit * Reason Comments Med Refill Encounter Details Date Type Department Care Team (Late st Contact Info) Description 02/04/2025 Refill [facility] [address] [place] [phone] Maria A Soria APRN [address] [place], [place] [id number] Social History Tobacco Use Types Packs/Day Years [...] on filedocumented in this encounter Care Teams Drop Wire Aliner Relationship Specialty Start Date End Date Maria A Soria APRN [address] [id number] PCP - General Family Medicine 02/15/23 documented as of this encounter
--- OUTSIDE RECORDS SUMMARY | 2025-04-02 11:17 | XMS_ITS | Encounter Summary ---
Author Organization [facility] Address [address] [id number] Care Team Providers Care Dermatology Procedural Physician Name Role Phone Maria A Soria SKEIN YARN DYER HELPER Primary Care Provider [phone] Encounter Details Date Type Department Care Team (Late st Contact Info) Description 02/26/2025 Telephone [facility] [address] [place] [address] Maria A Soria, SKEIN YARN DYER HELPER [address] [place], [place] [id number] Social History Tobacco Use Types Packs/Day Years [...] PM EDT PATIENT NEEDS PREOP SENT TO [facility] AT [phone] documented in this encounter Plan of Treatment Not on file documented as of this encounter Visit Diagnoses Not on filedocumented in this encounter Care Teams Dermatology Procedural Physician Relationship Specialty Start Date End Date Maria A Soria APRN [address] [place] [address] PCP - General Family Medicine 02/15/23 documented as of this encounter
--- OUTSIDE RECORDS SUMMARY | 2025-04-02 11:17 | XMS_ITS | Encounter Summary ---
Author Organization [facility] Address [address] [id number] Care Team Providers Care Engineering Lecturer Name Role Phone Maria A Soria APRN Primary Care Provider [phone]- [phone] Encounter Details Date Type Department Care Team [...] on filedocumented in this encounter Care Teams Engineering Lecturer Relationship Specialty Start Date End Date Maria A Soria APRN [address] [place] [address] PCP - General Family Medicine 02/15/23 documented as of this encounter
--- OUTSIDE RECORDS SUMMARY | 2025-04-02 11:17 | XMS_ITS | Encounter Summary ---
Author Organization [facility] Address [address] [place] [address] Care Team Providers Care Documentation Engineer Name Role Phone Jaquan Conley MD Primary Care Provider + [phone] Encounter Details Date Type Department Care Team (Late st Contact Info) Description 10/18/2018 [facility] Committee Historical OTTR [address] [place] [address] Yris Schwarz, RN CH-TRANSPLANT ADMINISTRATION Social History [...] in nephrology clinic note that she left [facility] after admission for increasing creatinine and e. coli UTI, consider starting with social work. She also initially stated didn't want to pursue kidney transplant if she couldn't get a pancreas at same time. * Progress Notes - Hilaria Hsu - 08/16/2018 9:25 AM EST Start eval with ; pt left [facility] per [facility] records. Pt has been 5 times; has 2 children, one of which is in [place] with her latest . documented in this encounter Plan of Treatment Not on file documented as of this encounter Visit Diagnoses Not on filedocumented in this encounter Care Teams Documentation Engineer Relationship Specialty Start Date End Date Jaquan Conley MD [address] [place] [address] PCP - General 11/28/20 documented as of this encounter
--- OUTSIDE RECORDS SUMMARY | 2025-04-02 11:17 | XMS_ITS | Clinical Summary ---
Author Organization [facility] Address [address] [place] [address] Care Team Providers Care Finance Specialist Name Role Phone Unavailable Primary Care [...] therelease of HIV test results or diagnoses. [id number] Allergies Active Allergy Reactions Criticality Noted Date [...] Monitoring (MyChart) 10/20/2023 Immunization: COVID-19 ( season) 2025 Immunization: Influenza (MyC stinson) (#1) 2025 04/13/2023, 04/07/2021, 04/22/2020, Additional history exists Immunization: DTaP/Tdap/Td ( 2 - Td or Tdap) 09/28/2033 09/29/2023 Insurance [facility] care Address: [facility] [id number] [place] [phone]
--- OUTSIDE RECORDS SUMMARY | 2025-04-02 11:18 | XMS_ITS | Clinical Summary ---
Author Organization [facility] Address [address], [address] [place] [address] Care Team Providers Care Spacer Type Bar And Segment Name Role Phone Jaquan Conley MD Primary Care Provider Social History Tobacco Use Types Packs/Day Years Used Date Smoking Tobacco: Never Assessed Comments Unknown Sex and Gender Information Value Date Recorded Sex Assigned at Not on file Legal Sex Female 11:22 AM EDT Gender Identity Not on file Sexual Orientation Not on file Plan of Treatment Not on file Insurance [facility] Care Teams Spacer Type Bar And Segment Relationship Specialty Start Date End Date Jaquan Conley MD [address] [place] [address] PCP - General Internal Medicine 01/09/21
--- OUTSIDE RECORDS SUMMARY | 2025-04-02 11:18 | XMS_ITS | Encounter Summary ---
Author Organization [facility] Address [address] [place] [address] Care Team Providers Care Pump Runner Name Role Phone Jaquan Conley MD Primary Care Provider + [phone] Reason for Visit * Reason Comments Med Refill Encounter Details Date Type Department Care Team (Late st Contact Info) Description 03/05/2025 Refill [facility] Endocrinology [address] [place] [address] Marilyn Valencia L, STEAM PAN SPONGER [address] [facility] [address] [place] [address] Type 2 diabetes mellitus with other specified complication, with long-term current use of insulin (CMS/HCC) Social History Tobacco Use Types Packs/Day [...] with long-term current use of insulin (CMS/HCC) documented in this encounter Additional Health Concerns Assessment Noted Time A fall risk assessment has been complete d for the patient 06/20/2023 12:51 PM EST A Body Mass Index follow-up plan has been documented for the patient 10/11/2024 3:34 PM EDT documented as of this encounter Care Teams Pump Runner Relationship Specialty Start Date End Date Jaquan Conley MD [address] [place] [address] PCP - General 11/28/20 documented as of this encounter
--- OUTSIDE RECORDS SUMMARY | 2025-04-02 11:18 | XMS_ITS | Encounter Summary ---
Author Organization [facility] Address [address] [place] [address] Care Team Providers Care Macroeconomics Professor Name Role Phone Jaquan Conley MD Primary Care Provider [phone] Reason for Visit * Reason Comments Med Refill Encounter Details Date Type Department Care Team (Late st Contact Info) Description 09/25/2024 Refill [facility] - Transplantation Surgery [address] [address] Cb Forrester MD [address] [facility], [address] [place] [address] Social History Tobacco Use Types Packs/Day Years [...] on filedocumented in this encounter Care Teams Macroeconomics Professor Relationship Specialty Start Date End Date Jaquan Conley MD [address] [place] [address] [place] [address] PCP - General Internal Medicine 09/18/20 documented as of this encounter
--- OUTSIDE RECORDS SUMMARY | 2025-04-02 11:18 | XMS_ITS | Encounter Summary ---
[facility] Organization [facility] Address [address] [place] [address] Care Team Providers Care Nascar Pit Crew Person Name Role Phone Maria A Soria APRN Primary Care Provider [phone] Reason for Visit * Reason Comments Med Refill Encounter Details Date Type Department Care Team (Late st Contact Info) Description 02/03/2025 Refill [facility]IMARY [facility] [address] [place] [phone] Maria A Soria APRN [address] [place], [place] [id number] Social History Tobacco Use Types Packs/Day Years [...] on filedocumented in this encounter Care Teams Nascar Pit Crew Person Relationship Specialty Start Date End Date Maria A Soria APRN [address] [place] [id number] PCP - General Family Medicine 02/15/23 documented as of this encounter
--- OUTSIDE RECORDS SUMMARY | 2025-04-02 11:18 | XMS_ITS | Encounter Summary ---
Author Organization [facility] Address [address] [place] [address] Care Team Providers Care R D Engineer Name Role Phone Jaquan Conley MD Primary Care Provider + [phone] Reason for Visit * Reason Onset Date Comments Prior-authorization/insurance Verification 03/05 Encounter Details Date Type Department Care Team (Late st Contact Info) Description 03/05/[address] [facility] [address] [place] [address] Erica Fernández PA [address] [address] Prior-authorization/in surance Verification Social History [...] documented as of this encounter Care Teams R D Engineer Relationship Specialty Start Date End Date Jaquan Conley MD [address] [place], [place] [phone] PCP - General 11/28/20 documented as of this encounter
--- OUTSIDE RECORDS SUMMARY | 2025-04-02 11:18 | XMS_ITS | Encounter Summary ---
Author Organization [facility] Address [address] [id number] Care Team Providers Care Family Advocate Name Role Phone Maria A Soria APRN Primary Care Provider [phone]- [phone] Encounter Details Date Type Department Care Team [...] on filedocumented in this encounter Care Teams Family Advocate Relationship Specialty Start Date End Date Maria A Soria APRN [address] [place] [address] PCP - General Family Medicine 02/15/23 documented as of this encounter
--- OUTSIDE RECORDS SUMMARY | 2025-04-02 11:18 | XMS_ITS | Clinical Summary ---
Author Organization [facility] Address [address] [place] [address] Care Team Providers Care Meat And Seafood Clerk Name Role Phone Jaquan Conley MD Primary Care Provider + [phone] Allergies Active Allergy Reactions Criticality Noted Date Comments Ibuprofen Hives,Unknown - Lisha ent states they do not know rxn details Medium 04/06/2011 Medications atorvastatin (Lipitor) 40 MG tablet TAKE 1 TABLET BY MOUTH EVERYDAY AT BEDTIME Active calcitriol (Rocaltrol) 0.5 MCG capsule TAKE 1 CAPSULE BY MOUTH ONCE DAILY *EMERGENCY REFILL* Active carvedilol (Coreg) 25 MG tablet Take 1 tablet (25 mg) by mouth 2 (two) times a day. Active hydrALAZINE (Apresoline) 25 MG tablet Take 1 tablet (25 mg) by mouth 2 (two) times a day. 022 Active loratadine (Claritin) 10 MG tablet Take 1 tablet (10 mg) by mouth 1 (one) time each day. 022 Active sodium bicarbonate 650 MG tablet Take 2 tablets (1,300 mg) by mouth 2 (two) times a day. 022 Active NIFEdipine CC (Adalat CC) 60 MG 24 hr tablet Take 1 tablet (60 mg) by mouth 1 (one) time each day. 023 Active BD Insulin Syringe U/F 31G X 5/16 0.5 ML miscIndications:Typ e 1 diabetes mellitus with other specified complication (CMS/HCC) Use as instructed to inject insulin 4+ times daily in event of pump failure 100 each 3 023 Active acetone, urine, test stripIndications:Ty pe 2 diabetes mellitus with other specified complication, with long-term current use of insulin ([facility]) 1 strip if needed for high blood sugar (illness, vomiting). Call clinic if positive. 25 each 2 024 Active pantoprazole (Protonix) 40 MG EC tablet [...] Active insulin aspart (NovoLOG) 100 UNIT/ML injection vialIndications:Typ e 2 diabetes mellitus with other specified complication, with long-term current use of insulin ([facility]) To be used in insulin pump. MDD 75u 70 mL 1 025 Active Semaglutide, 1 MG/DOSE, (Ozempic, 1 MG/DOSE,) 4 MG/3ML solution pen-injectorIndicat ions:Type 2 diabetes mellitus with other specified complication, with long-term current use of insulin ([facility]) Inject 1 mg under the skin 1 (one) time per week. 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 Use daily or as directed for monitoring of diabetes 1 kit 022 2024 Discontinued(F ormulary change) glucose blood test stripIndications:Ty pe 2 diabetes mellitus with other specified complication, with long-term current use of insulin (CMS/HCC) Use as instructed test blood glucose 2 times per day or to calibrate CGM 50 strip 5 025 2024 Discontinued Lancets misc Use 3 times/day 200 each 2 025 2024 Discontinued(R eorder) glucose blood (Global RoamingTouch Ultra) test stripIndications:Ty pe 2 diabetes mellitus with other specified complication, with long-term current use of insulin (CMS/HCC) USE 1 STRIP TO CHECK GLUCOSE THREE TIMES DAILY 100 each 2 025 2024 Discontinued(F ormulary change) Active Problems Problem Noted Date Diagnosed Date [...] Date Type Department Care Team Description 03/08/2025 Refill [facility] Endocrinology [address] [place] [phone] Paz Echeverria MD Type 2 diabetes mellitus with other specified complication, with long-term current use of insulin ([facility]) 03/05/2025 Refill [facility] Endocr[facility]ology [address] [place] [address] Marilyn Valencia APRN Type 2 diabetes mellitus with other specified complication, with long-term current use of insulin ([facility]) 03/05/2025 Telephone [facility] Endocrinology [address] [place] [address] Erica Ventura PA Prior-authorization/ins urance Verification [...] [facility]-HIV Screening 1989 [facility]-Infant/Child/Adol SDOH Screenings 1989 [id number] Vaccine (#1) 1994 Diabetes: Dental Exam 1999 [...] complication, with long-term current use of insulin ([facility]) CYTO DATA CONVERSION Routine 10/29/2014 12:00 AM EDT from Last 3 Months or Most Recently Relevant to Health Maintenance Results * (ABNORMAL) POCT glycosylated hemoglobin (Hb A1C) (05/23/2024 11:03 AM EST) POCT Hemoglobin A1C 5.8 <5.7% Non-Diabe tic % [facility] Kit Lot Number 774 COUNTS INCLUDE 234 BEDS AT [facility] Kit Expiration Date 03/17/2026 [facility] Blood Venous blood specimen / Unknown 05/23/2024 11:03 AM EST Erica MENDEZ POINT OF CARE TEST EN TER/EDIT ORDERABLES Final Result Performing Organization Address City/State/[facility] Co de Phone Number [facility] [address] [place] [address] * Cytology (10/29/2014 12:00 AM EDT) 10/29/2014 10/31/2014 12: 33 PM EDT Narrative [facility] - 11/06/2014 11:15 AM EDT [facility] MR #: [id number] [facility] [place], [place] [address] 1990 (Age: 24) FW Collect Date: 10/29/2014 00:00 Receipt Date: 10/31/2014 12:33 Page 1 DEPARTMENT OF PATHOLOGY AND LABORATORY MEDICINE CYTOPATHOLOGY REPORT Email: [email or web address] ATTENDING MD/Practitioner: John Celestin APRN Service: [facility] Location: OUTS Reported: 11/06/2014 11:15 Collected: 10/29/2014 00:00 INTERPRETATION A. THIN PREP (CERVICAL/VAGINAL): NEGATIVE FOR INTRAEPITHELIAL LESION OR MALIGNANCY. SATISFACTORY FOR EVALUATION; ENDOCERVICAL/ TRANSFORMATION ZONE COMPONENT PRESENT. Slide scanned and imaged by [employer] ThinPrep Imaging System with manual review of [...] results is suggested (please call Microbiology at [phone] for results). CLINICAL INFORMATION: Menstrual History: Cyclic Date of Last Menstrual Period: 10/03/14 Other Clinical Conditions: If ASCUS and > 24 years of age, HPV/DNA testing requested. SPECIMEN DESCRIPTION: A: THIN PREP (CERVICAL/VAGINAL) THIN PREP PROCESS CELLULAR ENHANCEMENT ICD: F: A; RT IMAGE [id number] SNOMED CODES: A; [id number] In cases where a pathologist has signed out the report, the service has been rendered in part by a resident. The signing pathologist has performed and is responsible for the reported pathologic evaluation. us Historical Provider LAB PATHOLOGY ORDERABLES Fin al Result [facility]QUEST from Last 3 Months or Most Recently Relevant to Health Maintenance Insurance [employer] Care Teams Meat And Seafood Clerk Relationship Specialty Start Date End Date Jaquan Conley MD [address] [place] [address] PCP - General 11/28/20
--- OUTSIDE RECORDS SUMMARY | 2025-04-02 11:18 | XMS_ITS | Clinical Summary ---
Author Organization [facility] Address [address] [place] [address] Care Team Providers Care Program Eligibility Specialist Name Role Phone Jaquan Conley MD Primary Care Provider [phone] Social History Tobacco Use Types Packs/Day Years [...] TYPE. U CleanCatch 12/31/2024 11:47 AM EDT [facility] Urinalysis SS URINE COLOR YELLOW 12/31/2024 12:[address] [facility] Urinalysis SS URINE APPEARANCE SL CLOUDY 12/31/2024 12:03 [address] [facility] Urinalysis SS URINE SPECIFIC GRAVITY 1.021 1.001 - 1.030 12/31/2024 12:[address] [facility] Urinalysis SS URINE PH DIPSTICK 6.0 12/31/2024 12:[address] [facility] Urinalysis SS URINE LEUKOCYTE ESTERASE 500 Maty/uL Maty/ul 12/31/2024 12:03 PM ED[address] [facility] Urinalysis SS URINE NITRITE 2+(A) Negative 12/31/2024 12:[address] [facility] Urinalysis SS URINE PROTEIN DIPSTICK 10 mg/dL mg/dL 12/31/2024 12:[address] [facility] Urinalysis SS URINE GLUCOSE DIPSTICK NORMAL mg/dL 12/31/2024 12:[address] [facility] Urinalysis SS URINE KETONES DIPSTICK NEGATIVE Negative mg/dL 12/31/2024 12:[address] [facility] Urinalysis SS URINE UROBILINOGEN DIPSTICK NORMAL [...] UR MUCOUS PRESENT 12/31/2024 12:[address] [facility] Urinalysis SS UR SQUAMOUS EPITHELIAL CELLS 0-4 None /HPF 12/31/2024 12:[address] [facility] Urinalysis SS Urine 12/31/2024 9:28 AM EDT 12/31/2024 11:47 AM EDT [facility] - 12/31/2024 12:05 [place] [address] Nikki Jeffery [employer] LAB URINE ORDERABLES Final Re sult Performing Organization Address City/State/[facility] [place] [address], [facility] Urinalysis Pathology Department [address] [place] [address] * CMV PCR Quant [[id number]] (12/31/2024 9:28 AM EDT) CMV DNA PCR NOT DETECTED Not Detected 7:49 AM EDT [facility] TOMMIE Molecular SS Blood 12/31/2024 9:28 AM EDT 12/31/2024 10:49 AM EDT [facility] - 01/01/2025 7:49 AM EDT Performed by [facility], [address] [place] [address] [facility] BLOOD ORDERABLES Final Re sult Performing Organization Address [facility] de Phone Number [facility] [address] [place] [address], [facility] Molecular SS Pathology Department [address] [place] [address] * BK Virus PCR Blood (12/31/2024 9:28 AM EDT) Pathologist [facility] BK VIRUS PCR QUAL, BLOOD NOT DETECTED Not Detected 01/01/2025 7:58 AM EDT [facility] TOMMIE Molecular SS Comment:The linear range of this test is 21.5 - 100,000,000 IU/mL. Any result of <21.5 or >100,000,000 indicates a true value outside of the range that can be accurately determined using our current methodology. Blood 12/31/2024 9:28 AM EDT 12/31/2024 10:49 AM EDT [facility] - 01/01/2025 7:58 AM EDT Performed by [facility], [address] [place] [address] [facility] LAB BLOOD ORDERABLES Final Re sult Performing Organization Address [facility] de Phone Number [facility] [address] [place] [address], [facility] TOMMIE Molecular Pathology Department [address] [place] [address] * (ABNORMAL) AUTODIFF (12/31/2024 9:28 AM EDT) [...] - 3.0 % 12/31/2024 10:[address] [facility] Heme Coag UA SS NEUT # 3.4 1.5 - 7.1 x10(3)/ul 12/31/2024 10:[address] [facility] Heme Coag UA SS LYMPH # 0.7(L) 1.0 - 3.5 x10(3)/ul 12/31/2024 10:[address] [facility] Heme Coag UA SS MONO # 0.5 0.0 - 1.0 x10(3)/ul 12/31/2024 10:[address] [facility] Heme Coag UA SS EOS # 0.0 0.0 - 0.7 x10(3)/ul 12/31/2024 10:[address] [facility] Heme Coag UA SS BASO # 0.0 0.0 - 0.3 x10(3)/ul 12/31/2024 10:[address] [facility] Heme Coag UA SS Blood 12/31/2024 9:28 AM EDT 12/31/2024 9:53 AM EDT [facility] - 12/31/2024 10:10 AM EDT Ordered by Discern Expert. Performed by [facility], [address] [place] [id number] Nikki Jeffery APRN LAB BLOOD ORDERABLES Final Re sult Performing Organization Address City/State/[facility] Co de Phone Number [facility] [address] [place] [address], [facility] Heme Coag UA SS Pathology Department [address] [place] [address] * (ABNORMAL) Tacrolimus level (12/31/2024 9:28 AM EDT) Tacrolimus Lvl 4.7(L) 5.0 - 20.0 ng/mL 12/31/2024 2:[address] [facility] Special Chemistry SS Comment: This test was performed, developed and its performance characteristics determined by at [facility], [address] [place] [address], [id number], [place], using a Laboratory Developed Test Tandem Mass Spectrometry LC/MS/MS. It has not been cleared or approved by the [place] Food and Drug Administration. Validation data is available upon request. Blood 12/31/2024 9:28 AM EDT 12/31/2024 9:53 AM EDT [facility] - 12/31/2024 2:04 PM EDT Performed by [facility], [address] [place] [address] Nikki Jeffery [employer] LAB BLOOD ORDERABLES Final Re sult [facility] [address] [place] [address], [facility] Special Chemistry Pathology Department [address] [place] [address] * (ABNORMAL) CBC With Differential (12/31/2024 9:28 AM EDT) WBC 4.6 4.0 - 10.8 x10(3)/ul 12/31/2024 10:10 AM EDT L Heme Coag UA SS RBC 3.64(L) 3.77 - 5.16 x10(6)/ul 12/31/2024 10:[address] [facility] Heme Coag UA SS HGB 10.6(L) 12.0 - 16.0 Gram/dL 12/31/2024 10:10 AM EDT L Heme Coag UA SS Hematocrit 31.6(L) 35.0 - 45.0 % 12/31/2024 10:10 AM EDT L Heme Coag UA SS MCV 86.9 79.4 - 94.8 fL 12/31/2024 10:[address] [facility] Heme Coag UA SS MCH 29.2 25.6 - 32.2 pg 12/31/2024 10:[address] [facility] Heme Coag UA SS MCHC 33.6 32.3 - 36.5 Gram/dL 12/31/2024 10:[address] [facility] Heme Coag UA SS RDW 12.5 11.0 - 15.5 % 12/31/2024 10:10 AM EDT [facility] Heme Coag UA SS Platelets 224 140 - 420 x10(3)/ul 12/31/2024 10:[address] [facility] Heme Coag UA SS MPV 11.2 8.7 - 12.0 fL 12/31/2024 10:[address] [facility] Heme Coag UA SS SLIDE REVIEW NONE 12/31/2024 10:[address] [facility] CH Remisol 2.0 SS Blood 12/31/2024 9:28 AM EDT 12/31/2024 9:53 AM EDT [facility] - 12/31/2024 10:10 AM EDT Performed by [facility], [address] [place] [address] [facility] BLOOD ORDERABLES Final Re sult Performing Organization Address [facility] de Phone Number [address] [address], [facility] Heme Coag UA Pathology Department [address] [place], [place] [address] CH Remisol 2.0 Pathology Department [address] [place] [address] * Phosphorus (12/31/2024 9:28 AM EDT) Phosphorus 3.1 2.5 - 5.0 mg/dL 12/31/2024 10:[address] [facility] CH Remisol 2.0 Blood 12/31/2024 9:28 AM EDT 12/31/2024 9:54 AM EDT [facility] - 12/31/2024 10:31 AM EDT Performed by [facility], [address] [place] [address] [facility] LAB BLOOD ORDERABLES Final Re sult Performing Organization Address [facility] Co de Phone Number [facility] [address] [place] [address], [facility] CH Remisol 2.0 Pathology Department [address] [place] [address] * (ABNORMAL) Magnesium (12/31/2024 9:28 AM EDT) Magnesium 1.8(L) 1.9 - 2.7 mg/dL 12/31/2024 10:31 AM EDT [facility] CH Remisol 2.0 SS Blood Venous Draw / Unknown 12/31/2024 9:28 AM EDT 12/31/2024 9:54 AM EDT [facility] - 12/31/2024 10:31 AM EDT Performed by [facility], [address] [place] [address] Nikki Jeffery [employer] LAB BLOOD ORDERABLES Final Re sult Performing Organization Address City/State/[facility] Co de Phone Number [facility] [address] [place] [address], [facility] CH Remisol 2.0 SS Pathology Department [address] [place] [address] * (ABNORMAL) Lipid panel (12/31/2024 9:28 AM [...] 9:28 AM EDT 12/31/2024 9:54 AM EDT [facility] - 12/31/2024 10:31 AM EDT Performed by [facility], [address] [place] [address] Nikki Jeffery [employer] LAB BLOOD ORDERABLES Final Re sult [facility] [address] [place] [address], [facility] Remisol 2.0 SS Pathology Department [address] [place] [address] * (ABNORMAL) Comprehensive metabolic panel (12/31/2024 9:28 AM EDT) Sodium 142 136 - 145 mmol/L 12/31/2024 10:31 AM EDT [facility] CH Remisol 2.0 SS Potassium 4.9 3.5 - 5.1 mmol/L 12/31/2024 10:[address] [facility] CH Remisol 2.0 SS Chloride 111(H) 98 - 110 mmol/L 12/31/2024 10:[address] [facility] CH Remisol 2.0 SS CO2 23 21 - 31 mmol/L 12/31/2024 10:[address] [facility] CH Remisol 2.0 SS Anion Gap 8.0 2.0 - 11.0 12/31/2024 10:[address] [facility] CH Remisol 2.0 SS Calcium 9.0 8.6 - 10.2 mg/dL 12/31/2024 10:[address] [facility] CH Remisol 2.0 SS Glucose 169(H) 74 - 109 mg/dL 12/31/2024 10:[address] [facility] CH Remisol 2.0 SS BUN 20 7 - 25 mg/dL 12/31/2024 10:31 AM EDT L CH Remisol 2.0 SS Creatinine 1.31(H) 0.60 - 1.20 mg/dL 12/31/2024 10:[address] [facility] CH Remisol 2.0 SS BUN/Creatinine Ratio [...] 9:28 AM EDT 12/31/2024 9:54 AM EDT [facility] - 12/31/2024 10:31 AM EDT Performed by [facility], [address] [place] [address] [place] Nikki Jeffery APRN LAB BLOOD ORDERABLES Final Re sult [facility] [address] [place] [address], [facility] Remisol 2.0 SS Pathology Department [address] [place] [address] * Urine culture (12/31/2024 9:17 AM EDT) Urine 12/31/2024 9:17 AM EDT 12/31/2024 12:37 PM EDT Narrative [facility] - 01/05/2025 6:37 AM EDT FREDDIE [...] Locations R1: This test was performed at: [facility], Pathology Department, [address] [place] [address], [facility]- , [place], us Non-Ulp Provider LAB MICROBIOLOGY - GENERAL ANABEL UGARTE Final Result Performing Organization Address [facility] Co de Phone Number [facility] [address] [place] [address] * Hepatitis C antibody (05/19/2023 8:10 AM EDT) Hep C Virus Ab NONREACTIVE Nonreactive 05/19/2023 12:09 PM EDT [facility] Core Remisol Blood 05/19/2023 8:10 AM EDT 05/19/2023 11:19 AM EDT Yue Kraft MD LAB BLOOD ORDERABLES Edited Resu lt - Final [facility] [address] [place] [address], [facility] Remisol Pathology Department [address] [place] [address] from Last 3 Months or Most Recently Relevant to Health Maintenance Insurance [place] [employer] Care Teams Program Eligibility Specialist Relationship Specialty Start Date End Date Jaquan Conley MD [address] [place] [address] [place] [address] PCP - General Internal Medicine 09/18/20
--- OUTSIDE RECORDS SUMMARY | 2025-04-02 11:18 | XMS_ITS | Encounter Summary ---
Author Organization [facility] Address [address] [place] [address] Care Team Providers Care Director Ehs Name Role Phone Jaquan Conley MD Primary Care Provider + [phone] Reason for Visit * Reason Comments Med Refill Encounter Details Date Type Department Care Team (Late st Contact Info) Description 07/05/2021 Refill [facility] Diabetes Education [address] [place] [address] Ulises Tran, RN [address] [address] Type 1 diabetes mellitus with mild nonproliferative retinopathy without macular edema, unspecified laterality (CMS/[facility]) Social History Tobacco Use Types Packs/Day [...] laterality documented in this encounter Care Teams Director Ehs Relationship Specialty Start Date End Date Jaquan Conley MD [address] [place] [address] PCP - General 11/28/20 documented as of this encounter
--- OUTSIDE RECORDS SUMMARY | 2025-04-02 11:18 | XMS_ITS | Encounter Summary ---
Author Organization [facility] Address [address] [place] [address] Care Team Providers Care Office Clerk Routine Name Role Phone Maria A Soria APRN Primary Care Provider [phone] Encounter Details Date Type Department Care Team (Latest Contact Info) Description 03/08/2025 Travel Social History Tobacco Use Types Packs/Day [...] Infection Onset Date Last Indicated Resolved Time COVID (rule out) 03/08/2025 03/08/2025 03/08/2025 1:57 PM EDT documented as of this encounter Care Teams Office Clerk Routine Relationship Specialty Start Date End Date Maria A Soria APRN [address] [place] [id number] PCP - General Family Medicine 02/15/23 documented as of this encounter
--- OUTSIDE RECORDS SUMMARY | 2025-04-02 11:18 | XMS_ITS | Encounter Summary ---
Author Organization [facility] Address [address], [address] [place] [address] Care Team Providers Care Associate Professor Of Radiology Name Role Phone Jaquan Conley MD Primary Care Provider [phone] Reason for Referral * Imaging (Emergency) - Closed Specialty Diagnoses / Procedures Referred By Contac t Referred To Contact Radiology Diagnoses Urinary retention Procedures US RENAL COMPLETE Yue Abdalla APRN [address] [place] [address] Phone: tel: Referral ID Status Reason Start Date Expiration Date Visits Re quested Visits Authorized [id number] Closed 01/09/2021 01/09/2022 1 1 Encounter Details Date Type Department Care Team (Latest Contact Info) Description 01/09/2021 Transcribe Orders [facility] PRE ACCESS [address] [place] [address] Yue Abdalla APRN [address] [place] [address] Urinary retention (Primary Dx) Social [...] abnormality of the kidneys or urinary bladder. [facility] Rm TIRE REGROOVING MACHINE OPERATOR [facility] [place] ORDERABLES Final Result documented in this encounter Visit Diagnoses Diagnosis Urinary retention- Primary Retention of urine, unspecified Urinary retention Retention of urine, unspecified documented in this encounter Care Teams Associate Professor Of Radiology Relationship Specialty Start Date End Date Jaquan Conley MD [address] [place] [address] PCP - General Internal Medicine 01/09/21 documented as of this encounter
--- OUTSIDE RECORDS SUMMARY | 2025-04-02 11:18 | XMS_ITS | Encounter Summary ---
Author Organization [facility] Address [address] [place] [address] Care Team Providers Care Extrusion Die Repairer Name Role Phone Jaquan Conley MD Primary Care Provider + [phone] Reason for Visit * Reason Comments Med Change Request Encounter Details Date Type Department Care Team (Late st Contact Info) Description 03/08/2025 Refill [facility] Endocrinology [address] [place] [address] Paz Echeverria MD [address] [address] Type 2 diabetes mellitus with other specified complication, with long-term current use of insulin ([facility]) Social History Tobacco Use [...] encounter Miscellaneous Notes * Telephone Encounter - Мария Crandall, PharmD - 03/08/2025 2:16 PM EDT Refill request does not meet protocol. Sending to clinic for review. Additional info: Clarification required: Pharmacy requesting product change. documented in this encounter Plan of Treatment Not on file documented as of this encounter Visit Diagnoses Diagnosis Type 2 diabetes mellitus with other specified complication, with long-term current use of insulin ([facility]) documented in this encounter Additional Health Concerns Assessment Noted Time A fall risk assessment has been complete d for the patient 06/20/2023 12:51 PM EST A Body Mass Index follow-up plan has been documented for the patient 10/11/2024 3:34 PM EDT documented as of this encounter Care Teams Extrusion Die Repairer Relationship Specialty Start Date End Date Jaquan Conley MD [address] [place] [address] PCP - General 11/28/20 documented as of this encounter
--- OUTSIDE RECORDS SUMMARY | 2025-04-02 11:18 | XMS_ITS | Encounter Summary ---
Author Organization [facility] Address [address] [place] [address] Care Team Providers Care Timber Harvester Operator Name Role Phone Jaquan Conley MD Primary Care Provider + [phone] Reason for Visit * Reason Comments Med Refill Encounter Details Date Type Department Care Team (Late st Contact Info) Description 08/08/2021 Refill [facility] Diabetes Education [address] [place] [address] Ivy Whaley MD [address] [facility] [address] [place] [address] Type 1 diabetes mellitus with mild nonproliferative retinopathy without macular edema, unspecified laterality ([facility]) Social History Tobacco Use Types [...] laterality documented in this encounter Care Teams Timber Harvester Operator Relationship Specialty Start Date End Date Jaquan Conley MD [address] [place] [address] PCP - General 11/28/20 documented as of this encounter
[2025-04-02 12:10] LABS: Hematocrit 35.8 % (37.0-47.0); Hemoglobin 11.6 g/dL (12.2-16.2); Immature Granulocytes % 0.9 %; Mean Corpuscular HGB Conc 32.4 g/dL (31.8-35.4); Mean Corpuscular Hemoglobin 29.1 pg (27.0-31.2); Mean Corpuscular Volume 89.9 fl (81-99); Nucleated Red Blood Cells % 0 %; Platelet Count 154 K/mm3 (142-424); Red Blood Count 3.98 M/mm3 (4.20-5.40); Red Cell Distribution Width-SD 41.3 fL; White Blood Count 4.4 K/mm3 (4.8-10.8)
[2025-04-02 12:46] LABS: Alanine Aminotransferase 12 U/L (12-78); Albumin Level 4.0 g/dl (3.5-5.0); Albumin/Globulin Ratio 1.5 (1.1-1.8); Alkaline Phosphatase 87 U/L (38-126); Anion Gap 14.9 mEq/L (5-15); Aspartate Amino Transferase 18 U/L (14-36); Bilirubin,Total 0.6 mg/dl (0.2-1.3); Blood Urea Nitrogen 13 mg/dl (7-17); Calcium 9.7 mg/dl (8.4-10.2); Carbon Dioxide 22 mmol/L (22.0-30.0); Chloride 107 mmol/L (98-107); Creatinine,Serum 0.80 mg/dl (0.52-1.04); Estimated Glomerular Filt Rate 82 ml/min (>60); GFR (African American) 99 ML/MIN (>60); Globulin 2.7 g/dL (1.3-3.2); Glucose 113 mg/dl (74-100); Magnesium 1.5 mg/dl (1.6-2.3); Phosphorous 3.3 mg/dl (2.5-4.5); Potassium 4.9 mmoL/L (3.5-5.1); Sodium 139 mmol/L (136-145); Total Protein,Serum 6.7 g/dl (6.3-8.2)
[2025-04-03 20:09] LABS: BKV DNA, Quant PCR, Plasma Negative (Negative)
== END 2025-04-02 23:59 | disposition home or self-care (01) ==
LOC: LAB 11:01
PROVIDERS: PCP Nurse Practitioner; Visit Provider Nurse Practitioner Family
DX: Z94.0 Kidney transplant status (principal); Z01.89 Encounter for other specified special examinations; Z79.899 Other long term (current) drug therapy
CPT/HCPCS: 36415; 80053; 80197; 83735; 84100; 85025

== ENCOUNTER 2025-04-17 10:58 | Outpatient (CLI) | payer MEDICAID, SELFPAY ==
--- OUTSIDE RECORDS SUMMARY | 2025-02-22 10:30 | XMS_ITS | Encounter Summary ---
Author Organization [facility] Address [address] [place] [address] Care Team Providers Care Pants Maker Name Role Phone Maria A Soria APRN Primary Care Provider [phone] Reason for Visit * Reason Comments Pre-op Exam Encounter Details Date Type Department Care Team (Late st Contact Info) Description 02/22/2025 10:30 AM EDT Office Visit [facility] [address] [place] [phone] Maria A Soria APRN [address] [place] [address] Type 2 diabetes mellitus with [...] 2023 she received a call from the [facility] that they had a match for [...] daily. Continues to be followed closely by [facility] transplant as well as Dr. Stevens at [facility]. * Maria A Soria APRN - 02/25/2025 7:40 AM EDTAssociated Problem(s): Pre- operative clearance Patient with upcoming plans for uterine ablation due to heavy menstrual bleeding. Followed by Dr. Lynch at [facility]. In review of most recent labs [...] therapy for quite some time by her dining room attendant cafeteria. Patient has not been on GLP- 1 [...] clearance prior to undergoing [facility] Patient is followed by Dr. Lynch. She [...] 2023 she received a call from the [facility] that they had a match for [...] daily. Continues to be followed closely by [facility] transplant as well as Dr. Stevens at [facility]. Recent renalfunction shows creatinine of [...] 10/17/2012 SECTION GASTRIC SLEEVE LAPAROSCOPIC INDUCED 2006 [facility] History reviewed. No pertinent family [...] therapy for quite some time by her dining room attendant cafeteria. Patient has not been on GLP- 1 [...] menstrual bleeding. Followed by Dr. Lynch at [facility]. In review of most recent labs and patient's current physical status she would be considered low risk to pursue with this intervention. No past history of difficulty with extubation or adverse reactions to anesthesia. Her glucose is very well-controlled, A1c 5.6% in office today 8. Renal transplant recipient Assessment & Plan: On December 02, 2023 she received a call from the [facility] that they had a match for [...] daily. Continues to be followed closely by [facility] transplant as well as Dr. Stevens at [facility]. BMI is within normal parameters. No other [...] Hemoglobin A1C 5.6 4.5 - 5.7 % [facility] Lot Number [id number] [facility] Expiration Date [address] [facility] Blood 02/22/2025 10:2 6 AM EDT Maria A Soria APRN POINT OF CARE TEST ORDERABL ES Final Result [facility]
[address] [place] [address], documented in this encounter Visit Diagnoses Diagnosis [...] recipient documented in this encounter Care Teams Pants Maker Relationship Specialty Start Date End Date Maria A Soria APRN [address] [phone] PCP - General Family Medicine 02/15/23 documented as of this encounter
--- OUTSIDE RECORDS SUMMARY | 2025-03-08 14:15 | XMS_ITS | Encounter Summary ---
Author Organization [facility] Address [address] [place] [address] Care Team Providers Care Retail Sales Associate Bilingual Name Role Phone Maria A Soria APRN Primary Care Provider [phone] Reason for Visit * Reason Comments Nasal Congestion Sore Throat Cough Headache Encounter Details Date Type Department Care Team (Late st Contact Info) Description 03/08/2025 2:15 PM EDT Office Visit [facility] [address] [place] [address] Maria A Soria APRN [address] [place] [address] Sore throat (Primary Dx); Strep [...] SECTION GASTRIC SLEEVE LAPAROSCOPIC INDUCED 2006 [facility] History [...] Screen Negative Negative, VALID, INVALID, Not Performed [facility] Internal Control Passed Passed [facility] Lot Number [id number] [facility] Expiration Date [facility] Swab 03/08/2025 1:57 PM EDT Maria A Soria APRN POINT OF CARE TEST ORDERABL ES Final Result [facility]
[address] [place] [address], * Covid-19 + Flu A&B AG, Veritor [...] pharyngitis documented in this encounter Care Teams Retail Sales Associate Bilingual Relationship Specialty Start Date End Date Maria A Soria APRN [address] [place], [place] [id number] PCP - General Family Medicine 02/15/23 documented as of this encounter
[2025-04-17 08:24] VITALS: BMI 20.1
--- NOTE | 2025-04-17 11:43 | ECG_ITS ---
APPROVED REPORT Exam: Resting ECG HR:76 bpm ECG Measurements Heart Rate 76 AXES KS 153 P 92 QRSd 88 QRS 96 QT 377 T 70 QTc 407 Conclusion SINUS RHYTHM ARM LEADS REVERSED [INVERTED P AND QRS IN I] NORMAL ECG UNCONFIRMED REPORT Electronically signed by : Demetrius Pillai MD 04/18/2025 09:00:19
[2025-04-17 11:59] LABS: Hematocrit 36.3 % (37.0-47.0); Hemoglobin 12.0 g/dL (12.2-16.2); Immature Granulocytes % 1.5 %; Mean Corpuscular HGB Conc 33.1 g/dL (31.8-35.4); Mean Corpuscular Hemoglobin 29.8 pg (27.0-31.2); Mean Corpuscular Volume 90.1 fl (81-99); Nucleated Red Blood Cells % 0 %; Platelet Count 288 K/mm3 (142-424); Red Blood Count 4.03 M/mm3 (4.20-5.40); Red Cell Distribution Width-SD 41.4 fL; White Blood Count 4.1 K/mm3 (4.8-10.8)
[2025-04-17 12:06] LABS: HCG Qualitative, Serum Negative (Negative)
[2025-04-17 12:12] LABS: Alanine Aminotransferase 22 U/L (12-78); Albumin Level 4.3 g/dl (3.5-5.0); Albumin/Globulin Ratio 1.6 (1.1-1.8); Alkaline Phosphatase 141 U/L (38-126); Anion Gap 16.3 mEq/L (5-15); Aspartate Amino Transferase 23 U/L (14-36); Bilirubin,Total 0.8 mg/dl (0.2-1.3); Blood Urea Nitrogen 17 mg/dl (7-17); Calcium 10.1 mg/dl (8.4-10.2); Carbon Dioxide 23 mmol/L (22.0-30.0); Chloride 108 mmol/L (98-107); Creatinine Clearance Estimated 76 mL/min (50-200); Creatinine,Serum 0.90 mg/dl (0.52-1.04); Estimated Glomerular Filt Rate 71 ml/min (>60); GFR (African American) 86 ML/MIN (>60); Globulin 2.7 g/dL (1.3-3.2); Glucose 101 mg/dl (74-100); Potassium 5.3 mmoL/L (3.5-5.1); Sodium 142 mmol/L (136-145); Total Protein,Serum 7.0 g/dl (6.3-8.2)
--- OUTSIDE RECORDS SUMMARY | 2025-04-17 12:13 | XMS_ITS | Encounter Summary ---
Author Organization [employer] ([place], [place], [place], [place]) Address [address] [place] [address] Care Team Providers Care Design Studio Consultant Name Role Phone Unavailable Primary Care Provider Unavailabl e Encounter Details Date Type Department Care Team (Late st Contact Info) Description 01/19/2020 Transcribed Document [facility] Family Medicine [address] [place] [address] ProviderLaury MD [address] [place] [address] Social History Tobacco Use Types Packs/Day [...] Obtained From : Patient Primary Language : Central African Preferred Communication Mode : Verbal Communication Barrier : None Edi Architect Needed : No OCTVAIO BRAND RN - 01/19/2020 8:36 EDT Fall [...] Scale Risk Level : 0-24 Low Risk [place] Fall Interventions : Adequate lighting, Bed in [...] Source : Stated Height Entry Format : [place] Height, Feet : 5 ft(Converted to: 152 cm, 60 Inch) Height, Inches : 5 Inch(Converted to: 0 ft 5 Inch, 12.70 cm) Clinical Height : 165.1 cm Weight Source : Standing scale Weight Entry Format : [place] Clinical Dosing Weight : 104.91 kg Weight, Pounds : 230.8 lb Body Surface Area (BSA) : 2.1 m2 Body Mass Index : 38.5 kg/m2 (HI) [place] Body Weight : 57 kg OCTAVIO BRAND [...] OCTAVIO BRAND RN - 01/19/2020 8:36 EDT [place] Suicide Severity Rating Scale (C-SSRS) CSSRS Past [...]
--- OUTSIDE RECORDS SUMMARY | 2025-04-17 12:13 | XMS_ITS | Encounter Summary ---
Author Organization [facility] [facility] ([place], [place], [place], [place]) Address [address] [place] [address] Care Team Providers Care Tank Truck Driver Name Role Phone Unavailable Primary Care Provider Unavailabl e Encounter Details Date Type Department Care Team (Late st Contact Info) Description 01/19/2020 Transcribed Document [facility] Family Medicine [address] [place] [address] ProviderLaury MD [address] [place] [address] Social History Tobacco Use Types Packs/Day [...] Laury ProviderMD - 01/19/2020 3:30 PM CDT [address] [address] FREDDIE ARCHER :1990 Visit Time:01/19/2020 [...] pharmacies and retail stores. ??? Eat bland, aiok-gy-amzntw foods in small amounts as you are [...] and water are not available, use hand gasoline locomotive crane operator. Make sure that everyone in your household washes their hands frequently. ??? Take kmep-dyl-bbsnqor and prescription medicines only as told by [...] and water are not available, use hand gasoline locomotive crane operator. Make sure that everyone in your [...] 07/30/2016 Document Revised: 12/12/2018 Document Reviewed: 12/12/2018 [employer] Interactive Patient Education ?? 2020 [employer]. Hypoglycemia Hypoglycemia occurs when the level of [...] instructions at home: General instructions ??? Take xour-jmr-elxwhgk and prescription medicines only as told by [...] 07/04/2006 Document Revised: 12/26/2018 Document Reviewed: 08/06/2016 [employer] Interactive Patient Education ?? 2020 [employer]. Emergency Awareness and Preventative Care STROKE is [...] Assistance with quitting is available by contacting 3-810-DGWG-NOW. This is a free resource providing counseling, [...] range between ( 1.0 and 7.0 ) [place] #: 0.73 K/uL -- Normal range between ( 0.24 and 0.82 ) Eos #: 0.24 K/uL -- Normal range between ( 0.04 and 0.54 ) [place] %: 7.3 % -- Normal range between [...] ) Urine Bilirubin Dipstick: Negative Urine Specific [place]: 1.012 -- Normal range between ( 1.005 [...] was given the opportunity to ask questions. Patient/Extrusion Die Repairer Name: Patient/Extrusion Die Repairer Signature: Relationship to Patient: Clinician/Hospital Extrusion Die Repairer Signature: Date: documented in this encounter Plan of Treatment Not on file documented as of this encounter Visit Diagnoses Not on filedocumented in this encounter
--- OUTSIDE RECORDS SUMMARY | 2025-04-17 12:13 | XMS_ITS | Encounter Summary ---
Author Organization [employer] ([place], [place]) Address [address] [place] [address] Care Team Providers Care Mold Closer Name Role Phone Unavailable Primary Care Provider Unavailabl e Encounter Details Date Type Department Care Team (Late st Contact Info) Description 01/19/2020 Transcribed Document [facility] [place] [address] [place] [address] ProviderLaury MD [address] [place] [address] Social History Tobacco Use Types [...] 01/19/2020 15:30 EDT Electronically signed by Rochelle [facility] Conversion Regional Refrigerated Cdl Truck Driver Cerner at 11/02/2022 10:02 AM CDT documented in this encounter Plan of Treatment Not on file documented as of this encounter Visit Diagnoses Not on filedocumented in this encounter
--- OUTSIDE RECORDS SUMMARY | 2025-04-17 12:13 | XMS_ITS | Encounter Summary ---
Author Organization [facility] ([place], [place], [place], [place]) Address [address] [place] [address] Care Team Providers Care Helmet Hat Sweatband Puncher Name Role Phone Unavailable Primary Care Provider Unavailabl e Encounter Details Date Type Department Care Team (Late st Contact Info) Description 01/18/2020 Transcribed Document [facility] [place] [address] [place] [address] ProviderLaury MD [address] [place] [address] Social History Tobacco Use Types [...] EDT DCP GENERIC CODE Tracking Group : [facility] Tracking Acuity : 2 - [...] Problems(Active) At risk for sleep apnea (IMO :88591648 ) Name of Problem: At risk for sleep apnea ; Recorder: SYSTEM, SYSTEM; Confirmation: Confirmed ; Classification: Medical ; Code: 22993186 ; Last Updated: 08/24/2019 10:25 EST ; Life Cycle Date: 08/24/2019 ; Life Cycle Status: Active ; Vocabulary: IMO DM (diabetes mellitus) (SNOMED CT :405726719 ) Name of Problem: DM (diabetes mellitus) ; Recorder: ANGE Green RN; Confirmation: Confirmed ; Classification: Medical ; Code: 158695298 ; Contributor System: PowerChart ; Last Updated: 08/24/2019 10:17 EST ; Life Cycle Date: 08/24/2019 ; Life Cycle Status: Active ; Vocabulary: SNOMED CT HTN (hypertension) (SNOMED CT :6367087992 ) Name of Problem: HTN (hypertension) ; Recorder: ANGE Green RN; Confirmation: Confirmed ; Classification: Medical ; Code: 6054044565 ; Contributor System: PowerChart ; Last Updated: 08/24/2019 10:16 EST ; Life Cycle Date: 08/24/2019 ; Life Cycle Status: Active ; Vocabulary: SNOMED CT Hyperkalemia (SNOMED CT :62197617 ) Name of Problem: Hyperkalemia ; Recorder: Noelle Umanzor Rn; Confirmation: Confirmed ; Classification: Medical ; Code: 78706343 ; Contributor System: PowerChart ; Last Updated: 10/03/2019 10:52 EDT ; Life Cycle Date: 10/03/2019 ; Life Cycle Status: Active ; Vocabulary: SNOMED CT Hyperlipemia (SNOMED CT :95850513 ) Name of Problem: Hyperlipemia ; Recorder: ANGE Green RN; Confirmation: Confirmed ; Classification: Medical ; Code: 07444694 ; Contributor System: PowerChart ; Last Updated: 08/24/2019 10:17 EST ; Life Cycle Date: 08/24/2019 ; Life Cycle Status: Active ; Vocabulary: SNOMED CT Kidney disease (SNOMED CT :336767127 ) Name of Problem: Kidney disease ; Recorder: ANGE Green RN; Confirmation: Confirmed ; Classification: Medical ; Code: 434283236 ; Contributor System: PowerChart ; Last Updated: 08/24/2019 10:17 EST ; Life Cycle Date: 08/24/2019 ; Life Cycle Status: Active ; Vocabulary: SNOMED CT Neuropathy (SNOMED CT :6801870427 ) Name of Problem: Neuropathy ; Recorder: ANGE Green RN; Confirmation: Confirmed ; Classification: Medical ; Code: 1400930156 ; Contributor System: PowerChart ; Last Updated: 08/24/2019 10:18 EST ; Life Cycle Date: 08/24/2019 ; Life Cycle Status: Active ; Vocabulary: SNOMED CT Retinopathy (SNOMED CT :76343633 ) Name of Problem: Retinopathy ; Recorder: Noelle Umanzor Rn; Confirmation: Confirmed ; Classification: Medical ; Code: 87987012 ; Contributor System: PowerChart ; Last Updated: 10/03/2019 10:52 EDT ; Life Cycle Date: 10/03/2019 ; Life Cycle Status: Active ; Vocabulary: SNOMED CT Diagnoses(Active) Dehydration Date: 01/18/2020 ; Diagnosis Type: Reason For Visit ; Confirmation: Complaint of ; Clinical Dx: Dehydration ; Classification: Medical ; Clinical Service: Emergency medicine ; Code: PNED ; Probability: 0 ; Diagnosis Code: [id number] Vomiting Date: 01/18/2020 ; Diagnosis Type: Reason For Visit ; Confirmation: Complaint of ; Clinical Dx: Vomiting ; Classification: Medical ; Clinical Service: Emergency medicine ; Code: PNED ; Probability: 0 ; Diagnosis Code: [id number] ED Height and Weight Height Source : Stated Height Entry Format : [place] Height, Feet : 5 ft(Converted to: 152 cm, 60 Inch) Height, Inches : 5 Inch(Converted to: 0 ft 5 Inch, 12.70 cm) Clinical Height : 165.1 cm Weight Source, ED : Standing scale Weight Entry Format : [place] Weight, Pounds : 230.8 lb Clinical Dosing Weight : 104.91 kg Body Surface Area (BSA) : 2.1 m2 Body Mass Index : 38.5 kg/m2 (HI) [place] Body Weight (IBW) : 56.59 kg MARKIE PANG RN - 01/18/2020 20:31 EDT documented in this encounter Plan of Treatment Not on file documented as of this encounter Visit Diagnoses Not on filedocumented in this encounter
--- OUTSIDE RECORDS SUMMARY | 2025-04-17 12:13 | XMS_ITS | Encounter Summary ---
Author Organization [employer] ([place], [place]) Address [address] [place] [address] Care Team Providers Care Teletype Adjuster Name Role Phone Unavailable Primary Care Provider Unavailabl e Encounter Details Date Type Department Care Team (Late st Contact Info) Description 01/19/2020 Transcribed Document [facility] Family Medicine [address] [place] [address] ProviderLaury MD [address] [place] [address] Social History Tobacco Use Types Packs/Day [...] - 01/19/2020 16:16 EDT Electronically signed by [facility] Conversion Woods Laborer Cerner at 11/02/2022 9:56 AM CDT documented in this encounter Plan of Treatment Not on file documented as of this encounter Visit Diagnoses Not on filedocumented in this encounter
--- OUTSIDE RECORDS SUMMARY | 2025-04-17 12:13 | XMS_ITS | Encounter Summary ---
Author Organization [employer] ([place], [place]) Address [address] [place] [address] Care Team Providers Care City Designer Name Role Phone Unavailable Primary Care Provider Unavailabl e Encounter Details Date Type Department Care Team (Late st Contact Info) Description 01/19/2020 Transcribed Document [facility] Family Medicine [address] [place] [address] ProviderLaury MD [address] [place] [address] Social History Tobacco Use Types [...] pharmacies and retail stores. ??? Eat bland, geep-iq-kwvvzf foods in small amounts as you are [...] and water are not available, use hand agriculture technician. Make sure that everyone in your household washes their hands frequently. ??? Take pxec-ido-hvfxyxz and prescription medicines only as told by [...] and water are not available, use hand agriculture technician. Make sure that everyone in your household [...] 07/30/2016 Document Revised: 12/12/2018 Document Reviewed: 12/12/2018 [employer] Interactive Patient Education ? 2020 [employer] Endocrinology Hypoglycemia Hypoglycemia occurs when the [...] instructions at home: General instructions ??? Take spza-spg-vflsooc and prescription medicines only as told by [...] 07/04/2006 Document Revised: 12/26/2018 Document Reviewed: 08/06/2016 [employer] Interactive Patient Education ? 2020 [employer] documented in this encounter Plan of Treatment Not on file documented as of this encounter Visit Diagnoses Not on filedocumented in this encounter
--- OUTSIDE RECORDS SUMMARY | 2025-04-17 12:13 | XMS_ITS | Encounter Summary ---
Author Organization [facility] Address [address] [place] [address] Care Team Providers Care Machine Hostler Name Role Phone Jaquan Conley MD Primary Care Provider + [phone] Encounter Details Date Type Department Care Team (Late st Contact Info) Description 10/18/2018 [facility] Committee Historical OTTR [address] [place] [address] Yris Schwarz, RN CH-TRANSPLANT ADMINISTRATION Social History [...] nephrology clinic note that she left [facility] after admission for increasing creatinine and e. coli UTI, consider starting with social work. She also initially stated didn't want to pursue kidney transplant if she couldn't get a pancreas at same time. * Progress Notes - Hilaria Hsu - 08/16/2018 9:25 AM EST Start eval with ; pt left [facility] per [facility] records. Pt has been 5 times; has 2 children, one of which is in [place] with her latest . documented in this encounter Plan of Treatment Not on file documented as of this encounter Visit Diagnoses Not on filedocumented in this encounter Care Teams Machine Hostler Relationship Specialty Start Date End Date Jaquan Conley MD [address] [place] [address] PCP - General 11/28/20 documented as of this encounter
--- OUTSIDE RECORDS SUMMARY | 2025-04-17 12:13 | XMS_ITS | Encounter Summary ---
Author Organization [facility] ([place], [place], [place], [place]) Address [address] [place] [address] Care Team Providers Care Network/Telecom Engineer Name Role Phone Unavailable Primary Care Provider Unavailabl e Encounter Details Date Type Department Care Team (Late st Contact Info) Description 01/19/2020 Transcribed Document [facility] [place] [address] [place] [address] ProviderLaury MD [address] [place] [address] Social History Tobacco Use Types Packs/Day [...] On: 01/19/2020 8:59 EDT by CRISTOBAL HANSEN RN-Lead Java Developer Architect Readmission Questionnaire Patient Status at Discharge, Previous Admission : Inpatient Did Patient Leave AMA Pre Admission : No Readmission : Unplanned Readmission Reason: : Patient/caregiver decided on their own to come to ED ED Visit Between Hospitalization : No DC Destination, Previous Admission : Discharge To Care Management: Home/Residential/Penitentiary or Self Care - (01/19/20 08:56:00) If [...] Was Readm Preventable : No CRISTOBAL HANSEN RN-Lead Java Developer Architect - 01/19/2020 8:59 EDT Electronically signed by Roc[facility]le [facility] Conversion Counter Molder Cerner at 11/02/2022 9:56 AM CDT documented in this encounter Plan of Treatment Not on file documented as of this encounter Visit Diagnoses Not on filedocumented in this encounter
--- OUTSIDE RECORDS SUMMARY | 2025-04-17 12:13 | XMS_ITS | Encounter Summary ---
Author Organization [facility] [facility] ([place], [place], [place], [place]) Address [address] [place] [address] Care Team Providers Care Web Services Professional Name Role Phone Unavailable Primary Care Provider Unavailabl e Encounter Details Date Type Department Care Team (Late st Contact Info) Description 01/19/2020 Transcribed Document [facility] [place] [facility] [place] [address] ProviderLaury MD [address] [place] [id number] Social History Tobacco Use Types Packs/Day Years [...] documented in chart. Surgical history: section x2 ([id number]). Dilation and curettage (57488074). Tubal ligation (971858668). wisdom teeth. kidney biopsy. EGD. Stomach biopsy. Gastric sleeve ([id number]).. Family history: Not significant, No family history [...] EDT Height Source Stated Height Entry Format [place] Height/Length, SOUTH KORE[place] (ft) 5 ft Height/Length [place]OU[place]ORE[place] 5 Inch CLINICALHEIGHT 165.1 cm [place] Body Weight 56.59 kg Weight Source, ED Standing scale Weight Entry Format [place] Weight [place] lb 230.8 lb CLINICALWEIGHT 104.91 kg Body [...] 39.0 % Lymph # 3.92 K/uL HI [place] % 7.3 % [place] # 0.73 K/uL Eos % 2.4 % Eos # 0.24 K/uL Baso % 0.4 % Baso # 0.04 K/uL Slide Review No IG# 0 x10(3)/uL IG% 0 % . Notes: Preliminary ReportNAME:FREDDIE ARCHER / SEX:1990 / FemaleMRN / ACC#:[id number] / [id number] ORDERING PHYSICIAN:Ordering Provider, UpdateEXAM REQUESTED:[id number]--AE ABDOMEN & PELVIS W/O CONTRAST [facility] NAME:MD Ashely, [facility]:status post gastric sleeve surgery on [...] No rash, no cyanosis, capillary refill brisk FLATWORK TIER: Awake alert oriented ??4, nonfocal exam Psych: [...]
--- OUTSIDE RECORDS SUMMARY | 2025-04-17 12:13 | XMS_ITS | Encounter Summary ---
Author Organization [facility] Address [address] [place] [address] Care Team Providers Care Rock Crusher Operator Name Role Phone Jaquan Conley MD Primary Care Provider + [phone] Encounter Details Date Type Department Care Team (Late st Contact Info) Description 11/10/2018 [facility] OTTR Encounter Historical OTTR [address] [place] [address] Yris Schwarz, RN CH-TRANSPLANT ADMINISTRATION Social History [...] . She stated she is going to [facility] because they told her she can continue [...] EDT SW received message from [facility] surgery scheduler that the pt contacted her to cancel psych appt, as she has decided to pursue listing at [facility], instead of . Note to Coord. and Optical Instruments Supervisor for awareness. * Progress Notes - MárquezIndira - 11/09/2018 4:12 PM EDT Mailed 11/24/18 [facility] psych eval appt schedule w/ map to pt. * Progress Notes - Daisy Gaming LCSW - 11/08/2018 8:09 AM EDT Per [facility] Optical Instruments Supervisor, pt has an appt with [facility] psych on 11/24/18 at 1:30 pm. Note to Coordinator andCarloz for awareness. * Progress Notes - Daisy Gaming LCSW - 11/02/2018 11:14 AM EDT [facility] has sent another email following up on psych eval referral. SW will continue to follow. * Progress Notes - Daisy Gaming LCSW - 10/26/2018 3:02 PM EDT [facility] has sent another email to follow up on request for psych eval appt. [facility] will continue to follow. * Progress Notes - Daisy Gaming, WELL DRILL OPERATOR - 10/20/2018 9:03 AM EDT has emailed [...] made between 9 and 12 due to childcare worker issues. Forwarding communication to . * Progress [...] However, pt is also considering going to [facility] since she was told they are less [...] @ 0830. Updated APM, SCM, OTTR, and [place]. Will call pt and mail updated ppw. [...] from pt asking for call back at [phone] to talk about a living donor. Called and spoke w/ pt. States she has several potential living donors and they have questions about the process, testing, and requirements. Informed pt that her potential living donors can call [phone] to discuss this and receive more info, [...] packet to pt and cc'd referring MD. [facility] [phone]. documented [...] on filedocumented in this encounter Care Teams Rock Crusher Operator Relationship Specialty Start Date End Date Jaquan Conley MD [address] [place] [address] PCP - General 11/28/20 documented as of this encounter
--- OUTSIDE RECORDS SUMMARY | 2025-04-17 12:13 | XMS_ITS | Encounter Summary ---
Author Organization [employer] ([place], [place], [place], [place]) Address [address] [place] [address] Care Team Providers Care Jig Grinder Set Up Operator Name Role Phone Unavailable Primary Care Provider Unavailabl e Encounter Details Date Type Department Care Team (Late st Contact Info) Description 01/19/2020 Transcribed Document [facility] [place] Family Medicine [address] [place] [address] ProviderLaury MD [address] [place] [address] Social History Tobacco Use Types Packs/Day [...]
--- OUTSIDE RECORDS SUMMARY | 2025-04-17 12:13 | XMS_ITS | Encounter Summary ---
Author Organization [employer] ([place], [place], [place], [place]) Address [address] [place] [address] Care Team Providers Care Automated Equipment Engineer Technician Name Role Phone Unavailable Primary Care Provider Unavailabl e Encounter Details Date Type Department Care Team (Late st Contact Info) Description 01/19/2020 Transcribed Document [facility] [place] [address] [place] [address] ProviderLaury MD [address] [place] [id number] Social History Tobacco Use Types Packs/Day Years [...] Physician Requested for Consult : LARRY MARTINES MD-[facility] Physician Covering for Consult : LARRY MARTINES MD-BRANDEE Date and Time Call Returned : 01/19/2020 9:04 EDT ASPEN CROWDER - 01/19/2020 9:04 EDT Electronically signed by [facility] Conversion Supervisor Photostat Cerner at 11/02/2022 10:05 AM CDT documented in this encounter Plan of Treatment Not on file documented as of this encounter Visit Diagnoses Not on filedocumented in this encounter
--- OUTSIDE RECORDS SUMMARY | 2025-04-17 12:14 | XMS_ITS | Encounter Summary ---
Author Organization [employer] ([place], [place], [place], [place]) Address [address] [place] [address] Care Team Providers Care Back Hand Name Role Phone Unavailable Primary Care Provider Unavailabl e Encounter Details Date Type Department Care Team (Late st Contact Info) Description 12/28/2019 Transcribed Document [facility] [place] Family Medicine [address] [place] [address] ProviderLaury MD [address] [place] [address] Social History Tobacco Use Types Packs/Day [...] Policy Numbers : Insurance 1 Health Plan: [facility] Policy Number: [id number] Authorization Number: Insurance Primary Name : [facility] Policy Number: [id number] Authorization Status-Primary : Admit approved Reference Number-Primary : [id number] Authorization Number-Primary : [id number] Number of Days Authorized-Primary : 0 Day(s) [...]
--- OUTSIDE RECORDS SUMMARY | 2025-04-17 12:14 | XMS_ITS | Encounter Summary ---
Author Organization [employer] ([place], [place], [place], [place]) Address [address] [place] [address] Care Team Providers Care Network Operations Lead Name Role Phone Unavailable Primary Care Provider Unavailabl e Encounter Details Date Type Department Care Team (Late st Contact Info) Description 10/31/2018 Transcribed Document [facility] Family Medicine [address] [place] [address] ProviderLaury MD [address] [place] [address] Social History Tobacco Use Types Packs/Day [...] Laury ProviderMD - 10/31/2018 1:17 AM CDT [facility] ADDRESS [place], [place] [phone] Name:Crystal Archer Visit Date:10/30/2018 20:23:00 Emergency Department Care Providers: Physician: MEGHA MAN Physician: Our doctors and staff appreciate your choice of [facility] for your emergency medical care. Read these instructions carefully. Please call us if you have any questions about your medical problem. [facility] Emergency Department [phone] [facility] Emergency Department [phone] [facility] Emergency Department [phone] Patient Education Materials Gianni Crystal Jones has [...] 10/19/2011 Document Revised: 11/11/2016 Document Reviewed: 06/30/2015 [employer] [facility] Interactive Patient Education ? 2017 [employer] FOLLOW UP CARE Most conditions that [...] to pick them up o [facility] # [phone] o [facility] # [phone] o [facility] # [phone] ?? If you had cultures done and [...] quit. o National Network of Tobacco Cessation [id number]-NOW o [employer] Lung Association o Chinese Heart Association [phone] o Sai/Manuel Mccray [phone] FINANCIAL INFORMATION ?? [facility] provides financial counseling to anyone who requests our services. ?? Emergency Physicians are independently contracted to provide your care. You will receive a bill for the care provided to you by the Physician and/or the Physician Weaver Hand. This will be a separate bill from [...] as recommended Patient Signature / or Patient Retort Firer Provider Signature Date documented in this encounter Plan of Treatment Not on file documented as of this encounter Visit Diagnoses Not on filedocumented in this encounter
--- OUTSIDE RECORDS SUMMARY | 2025-04-17 12:14 | XMS_ITS | Encounter Summary ---
Author Organization [facility] Address [address] [id number] Care Team Providers Care Mill Labor Supervisor Name Role Phone Maria A Soria APRN Primary Care Provider [phone] Encounter Details Date Type Department Care Team [...] on filedocumented in this encounter Care Teams Mill Labor Supervisor Relationship Specialty Start Date End Date Maria A Soria APRN [address] [place] [address] PCP - General Family Medicine 02/15/23 documented as of this encounter
--- OUTSIDE RECORDS SUMMARY | 2025-04-17 12:14 | XMS_ITS | Encounter Summary ---
Author Organization [employer] ([place], [place], [place], [place]) Address [address] [place] [address] Care Team Providers Care Log Pond Worker Name Role Phone Unavailable Primary Care Provider Unavailabl e Encounter Details Date Type Department Care Team (Late st Contact Info) Description 01/04/2020 Transcribed Document [facility] [place] [facility] [address] ProviderLaury MD [address] [place] [address] Social History Tobacco Use Types Packs/Day [...] Laparoscopic sleeve gastrectomy SURGEON: Xavi Mejia M.D. GINGER FARMER: Daniel steinberg MD ANESTHESIA: General. SPECIMEN: Stomach. INDICATION FOR PROCEDURE: is a 29-year-old patient with residential history of morbid obesity and CKD, has [...] was done, we proceeded to place the 54-Puerto Rican bougie down the esophagus into the stomach under direct visualization. When it was in the antrum, we proceeded to staple the stomach in a parallel manner to the greater curvature, creating a sleeve gastrectomy using the Moenkopi stapler. We used green loads, all reinforced [...]
--- OUTSIDE RECORDS SUMMARY | 2025-04-17 12:14 | XMS_ITS | Encounter Summary ---
Author Organization [employer] ([place], [place], [place], [place]) Address [address] [place] [address] Care Team Providers Care Geology Scientist Name Role Phone Unavailable Primary Care Provider Unavailabl e Encounter Details Date Type Department Care Team (Late st Contact Info) Description 01/05/2020 Transcribed Document [facility] [place] [address] [place] [address] ProviderLaury MD [address] [place] [address] Social History Tobacco Use Types Packs/Day [...]
--- OUTSIDE RECORDS SUMMARY | 2025-04-17 12:14 | XMS_ITS | Encounter Summary ---
Author Organization [facility] Address [address] [place] [address] Care Team Providers Care Server Cashier Name Role Phone Maria A Soria APRN Primary Care Provider [phone] Encounter Details Date Type Department Care Team [...] documented as of this encounter Care Teams Server Cashier Relationship Specialty Start Date End Date Maria A Soria APRN [address] [place] [address] PCP - General Family Medicine 02/15/23 documented as of this encounter
--- OUTSIDE RECORDS SUMMARY | 2025-04-17 12:14 | XMS_ITS | Encounter Summary ---
Author Organization [facility] Address [address] [place] [address] Care Team Providers Care Justice Court Judge Name Role Phone Jaquan Conley MD Primary Care Provider [phone] Reason for Visit * Reason Onset Date Comments Prior-authorization/insurance Verification 03/05 Encounter Details Date Type Department Care Team (Late st Contact Info) Description 03/05/2025 Telephone [facility] Endocrinology [address] [place] [address] Erica Fernández PA [address] [address] Prior-authorization/in surance Verification Social History [...] documented as of this encounter Care Teams Justice Court Judge Relationship Specialty Start Date End Date Jaquan Conley MD [address] [place], [place] [id number] PCP - General 11/28/20 documented as of this encounter
--- OUTSIDE RECORDS SUMMARY | 2025-04-17 12:14 | XMS_ITS | Clinical Summary ---
Author Organization [facility] Address [facility], [address] [place] [address] Care Team Providers Care Rehabilitation Therapist Name Role Phone Jaquan Conley MD Primary Care Provider [phone] Social History Tobacco Use Types Packs/Day Years Used Date Smoking Tobacco: Never Assessed Comments Unknown Sex and Gender Information Value Date Recorded Sex Assigned at Not on file Legal Sex Female 11:22 AM EDT Gender Identity Not on file Sexual Orientation Not on file Plan of Treatment Not on file Insurance [facility] Care Teams Rehabilitation Therapist Relationship Specialty Start Date End Date Jaquan Conley MD [address] [place] [address] PCP - General Internal Medicine 01/09/21
--- OUTSIDE RECORDS SUMMARY | 2025-04-17 12:14 | XMS_ITS | Encounter Summary ---
Author Organization [employer] ([place], [place], [place], [place]) [place] [address] Care Team Providers Care Mechanical Test Technician Name Role Phone Unavailable Primary Care Provider Unavailabl e Encounter Details Date Type Department Care Team (Late st Contact Info) Description 11/19/2018 Transcribed Document [facility] Family Medicine [address] [place] [address] ProviderLaury MD [address] [place] [address] Social History Tobacco Use Types Packs/Day [...] Laury ProviderMD - 11/19/2018 1:52 AM CDT [facility] Emergency Department Depart Summary PERSON INFORMATION Name Crystal Archer Age 28 Years 1990 Sex Female Language PCP Marital Status Phone [phone] Visit Id Visit Reason Specialty Enc Type Emergency Med Service [facility] Tr[facility] [id number] Checkout 11/18/2018 21:52:54 Checkin 11/18/2018 20:06:00 Acuity 4 - Non-urgent [facility] Dispo Type Arrival 11/18/2018 20:06:00 Reg Status LOS 000 01:46 Address: [address] [place], [place] [address] [address] POWERFORMS PHYSICIAN NOTES VITALS INFORMATION Vital Sign Triage Temp 99.0 Temp Route Oral/Mouth Pulse Rate 107 Respiratory Rate 18 Blood Pressure 147/ 87 LOCATION INFORMATION Arrival Nurse Unit Room Bed 11/18/2018 20:06:00 [facility] ED Waitroom ([facility]) 11/18/2018 20:10:40 [facility] ED 8 11/18/2018 21:33:06 [facility] ED STA-3 11/18/2018 21:52:54 [facility] ED Checkout ([facility]) MEDICAL INFORMATION Allergy Info: No Known Allergies PATIENT EDUCATION INFORMATION Instructions: Urinary Tract Infection, Adult, Qhcs-gm-Ckdu; Otitis Media, Adult, Olbn-nb-Rptl Follow up: With: Address: When: Follow up with primary care provider Within 1-2 days With: Address: When: Return to Emergency Department Within As needed DIAGNOSIS documented in this encounter Plan of Treatment Not on file documented as of this encounter Visit Diagnoses Not on filedocumented in this encounter
--- OUTSIDE RECORDS SUMMARY | 2025-04-17 12:14 | XMS_ITS | Encounter Summary ---
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 Zofran 8mg oral every 12 hours as needed for nausea. Prilosec 20mg oral daily. Starts tomorrow. [2] Code Status No Code Status Order on Record Condition on Discharge Stable Consulting Physicians LARRY JAIMES MD-ANS Current Diet Order No qualifying data available. Patient Discharge Summary Orders Discharge Follow Up Instructions: followup next weekCall for [id number] Follow Up Instructions: call office on tuesday [...]
--- OUTSIDE RECORDS SUMMARY | 2025-04-17 12:14 | XMS_ITS | Encounter Summary ---
Author Organization [employer] ([place], [place], [place]) Address [address] [place] [address] Care Team Providers Care Nursing Services Manager Name Role Phone Unavailable Primary Care Provider Unavailabl e Encounter Details Date Type Department Care Team (Late st Contact Info) Description 09/26/2018 Transcribed Document [facility] [place] [address] [place] [address] ProviderLaury MD [address] [place] [address] Social History Tobacco Use Types Packs/Day [...] Laury ProviderMD - 09/26/2018 10:56 PM CDT [facility] Emergency Department Depart Summary PERSON INFORMATION Name Crystal Archer Age 28 Years 1990 Sex Female Language PCP Marital Status Phone [id number] Visit Id Visit Reason Specialty Enc Type Emergency Med Service [facility] Dis[facility] Tracking Id [id number] Checkout 09/26/2018 18:56:15 Checkin 09/26/2018 16:44:00 Acuity 3 - Urgent [facility] Dispo Type Arrival 09/26/2018 16:44:00 Reg Status LOS 000 02:12 Address: [address] [place] [address] [place] [address] POWERFORMS PHYSICIAN NOTES VITALS INFORMATION Vital Sign Triage Temp 98.7 Temp Route Oral/Mouth Pulse Rate 102 Respiratory Rate 20 Blood Pressure 140/ 72 LOCATION INFORMATION Arrival Nurse Unit Room Bed 09/26/2018 16:44:00 [facility] ED Waitroom ([facility]) 09/26/2018 16:50:17 [facility] ED 3 09/26/2018 18:56:15 [facility] ED Checkout ([facility]) MEDICAL INFORMATION Allergy Info: No Known Allergies PATIENT EDUCATION INFORMATION Instructions: Hematuria, Adult Follow up: With: Address: When: Follow up with primary care provider Within 5 to 7 days DIAGNOSIS documented in this encounter Plan of Treatment Not on file documented as of this encounter Visit Diagnoses Not on filedocumented in this encounter
--- OUTSIDE RECORDS SUMMARY | 2025-04-17 12:14 | XMS_ITS | Encounter Summary ---
Author Organization [employer] ([place]) Address [address] [place] [address] Care Team Providers Care Production Assistant Name Role Phone Unavailable Primary Care Provider Unavailabl e Encounter Details Date Type Department Care Team (Late st Contact Info) Description 10/31/2018 Transcribed Document [facility] [place] Family Medicine [address] [place] [address] ProviderLaury MD [address] [place] [address] Social History Tobacco Use Types Packs/Day [...] Complaint Primary Care Provider : Rema Ferreira, Project Management Consultant Accompanied By : Family/Spouse/SO Arrival Mode [...] : No GI 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 : No Patient Information Coordinator Hx : No Heart Attack : [...] Preferred Communication Mode : Verbal Languages : Jordanian Child/Parent Domestic Concerns : None Threats of Suicide : No Jasen summer10/30/2018 20:29 EDT Height and Weight Height Source : Stated Height Entry Format : [place] Height, Inches : 65 Inch(Converted to: 5 ft 5 Inch, 165.10 cm) Clinical Height : 165.1 cm Weight Source : Stated Type of Weight Measurement Est : [place] Weight, est lb : 214 lb Estimated Clinical Dosing Weight : 97.27 kg Hurley Body Weight : 57 kg Body Surface [...] ; Status: Processing ; Ordered As Mnemonic: Zumbrota 5 mg-325 mg oral tablet ; Simple [...]
--- OUTSIDE RECORDS SUMMARY | 2025-04-17 12:14 | XMS_ITS | Encounter Summary ---
Author Organization [employer] ([place], [place], [place], [place]) Address [address] [place] [address] Care Team Providers Care Paper Feeder Name Role Phone Unavailable Primary Care Provider Unavailabl e Encounter Details Date Type Department Care Team (Late st Contact Info) Description 10/31/2018 Transcribed Document [facility] [place] [address] [place] [address] ProviderLaury MD [address] [place] [address] Social History Tobacco Use Types Packs/Day [...] Laury ProviderMD - 10/31/2018 1:17 AM CDT [facility] ADDRESS [place], [place] [phone] Name:Crystal Archer Visit Date:10/30/2018 20:23:00 Emergency Department Care Providers: Physician: MEGHA MAN Physician: Our doctors and staff appreciate your choice of [facility] for your emergency medical care. Read these instructions carefully. Please call us if you have any questions about your medical problem. [facility] Emergency Department [phone] [facility] Emergency Department [phone] [facility] Emergency Department [phone] Patient Education Materials Gianni Crystal Jones has [...] 10/19/2011 Document Revised: 11/11/2016 Document Reviewed: 06/30/2015 [employer] Interactive Patient Education ? 2017 [employer] FOLLOW UP CARE Most conditions that [...] x-ray department to pick them up o [facility] # [phone] o [facility] # [phone] o [facility] # [phone] ?? If you had cultures done and [...] quit. o National Network of Tobacco Cessation [id number]-TRCK-NOW o [employer] Lung Association o [employer] Heart Association [phone] o Sai/Manuel Mccray [phone] FINANCIAL INFORMATION ?? [facility] provides financial counseling to anyone who requests our services. ?? Emergency Physicians are independently contracted to provide your care. You will receive a bill for the care provided to you by the Physician and/or the Physician Credit Coordinator. This will be a separate bill [...] as recommended Patient Signature / or Patient Office Services Associate Provider Signature Date Date/Time 10/30/2018 21:17 Saint [...] Dose Frequency amLODIPine 2.5 mg oral tablet Wilson 5 mg-325 mg oral tablet Comment: This [...]
--- OUTSIDE RECORDS SUMMARY | 2025-04-17 12:14 | XMS_ITS | Encounter Summary ---
Author Organization [employer] ([place]) Address [address] [place] [address] Care Team Providers Care Turning Sander Operator Name Role Phone Unavailable Primary Care Provider Unavailabl e Encounter Details Date Type Department Care Team (Late st Contact Info) Description 01/18/2020 Transcribed Document [facility] [place] [address] [place] [address] ProviderLaury MD [address] [place] [address] Social History Tobacco Use Types [...] Communication Barrier : None Primary Language : Ethiopian Any Spiritual/Cultural Needs or Requests : No [...]
--- OUTSIDE RECORDS SUMMARY | 2025-04-17 12:14 | XMS_ITS | Encounter Summary ---
Author Organization [employer] ([place]) Address [address] [place] [address] Care Team Providers Care Shoulder Joiner Name Role Phone Unavailable Primary Care Provider Unavailabl e Encounter Details Date Type Department Care Team (Late st Contact Info) Description 01/04/2020 Transcribed Document [facility] [place] Family Medicine [address] [place] [address] ProviderLaury MD [address] [place] [address] Social History Tobacco Use Types [...]
--- OUTSIDE RECORDS SUMMARY | 2025-04-17 12:14 | XMS_ITS | Encounter Summary ---
Author Organization [employer] ([place]) Address [address] [place] [address] Care Team Providers Care Sas Clinical Programmer Name Role Phone Unavailable Primary Care Provider Unavailabl e Encounter Details Date Type Department Care Team (Late st Contact Info) Description 08/24/2019 Transcribed Document [facility] [place] [address] [place] [address] ProviderLaury MD [address] [place] [address] Social History Tobacco Use Types Packs/Day [...] - Laury ProviderMD - 08/24/2019 2:30 PM COMPUTER METEOROLOGIST [facility] PreOp Summary Primary Physician: LARRY MARTINES MD-SUR Finalized Date/Time: 08/24/19 10:30:24 Pt. Name: FREDDIE RUGGIEROGARCIA /Sex: 1990 Female Med Rec #: [id number] Physician: LARRY MARTINES MD-SUR Financial #: [id number] Pt. Type: O [place]/[facility] [facility] Admit/Disch: 08/24/19 09:42:00 - Institution: [facility] PreOp Case Times Entry 1 In Preop 08/24/19 10:06:00 Ready for Holding n/a Room Patient Ready for 08/24/19 10:30:00 Surgery Patient Out of Preop 08/24/19 10:30:00 Patient Out of n/a Holding Room [facility] Pre[facility] Case Times Audit 08/24/19 10:30:23 Dowel Pin Worker: GEOVANNA Modifier: [email or web address] <+> 1 Patient Out of Preop <+> 1 Patient Ready for Surgery Finalized By: ANGE Green RN Document Signatures Signed By: ANGE Green RN 08/24/19 10:30 Electronically signed by [facility] Conversion Custom Van Converter Cerner at 11/02/2022 10:00 AM CDT documented in this encounter Plan of Treatment Not on file documented as of this encounter Visit Diagnoses Not on filedocumented in this encounter
--- OUTSIDE RECORDS SUMMARY | 2025-04-17 12:14 | XMS_ITS | Encounter Summary ---
Author Organization [employer] ([place], [place], [place], [place]) Address [address] [place] [address] Care Team Providers Care Associate Business Analyst Name Role Phone Unavailable Primary Care Provider Unavailabl e Encounter Details Date Type Department Care Team (Late st Contact Info) Description 01/08/2019 Transcribed Document [facility] [place] [address] [place] [address] ProviderLaury MD [address] [place] [address] Social History Tobacco Use Types Packs/Day Years [...] Laury ProviderMD - 01/08/2019 12:31 AM CDT [facility] ADDRESS [place], [place] [phone] Name:Crystal Archer Visit Date:01/07/2019 18:52:00 Emergency Department Care Providers: Physician: Physician: Our doctors and staff appreciate your choice of [facility] for your emergency medical care. Read these instructions carefully. Please call us if you have any questions about your medical problem. [facility] Emergency Department [phone] [facility] Emergency Department [phone] [facility] Emergency Department [phone] Patient Education Materials Crystal Archer Karen has [...] them up o [facility] # [phone] o [facility] # [phone] o [facility] # [phone] ?? If you had cultures done and [...] quit. o National Network of Tobacco Cessation [id number]-CQQW-NOW o [employer] o [employer] Heart Association [phone] o Sai/Manuel Mahendra [phone] FINANCIAL INFORMATION ?? [facility] provides financial counseling to anyone who requests our services. ?? Emergency Physicians are independently contracted to provide your care. You will receive a bill for the care provided to you by the Physician and/or the Physician Recreation Engineer. This will be a separate bill [...] as recommended Patient Signature / or Patient Aviation Technician Aircraft Provider Signature Date Date/Time 01/07/2019 20:31 [facility] [...]
--- OUTSIDE RECORDS SUMMARY | 2025-04-17 12:14 | XMS_ITS | Encounter Summary ---
Author Organization [employer] ([place], [place], [place], [place]) Address [address] [place] [address] Care Team Providers Care Spd Manager Name Role Phone Unavailable Primary Care Provider Unavailabl e Encounter Details Date Type Department Care Team (Late st Contact Info) Description 11/19/2018 Transcribed Document [facility] [place] Family Medicine [address] [place] [address] ProviderLaury MD [address] [place] [address] Social History Tobacco Use Types Packs/Day [...] Laury ProviderMD - 11/19/2018 1:52 AM CDT [facility] [place], [place] [phone] Name:Crystal Archer Visit Date:11/18/2018 20:06:00 Emergency Department Care Providers: Physician: Clara Elias Phys Asst Physician: Our doctors and staff appreciate your choice of [facility] for your emergency medical care. Read these instructions carefully. Please call us if you have any questions about your medical problem. [facility] Emergency Department [phone] [facility] Emergency Department [phone] [facility] Emergency Department [phone] Patient Education Materials Gianni Crystal Jones has [...] start to feel better. ??? Only take zftf-coa-zmjvsmx or prescription medicines for pain, discomfort, or [...] 01/29/2014 Elsevier Interactive Patient Education ? 2017 [employer] Obstetrics and Gynecology Urinary Tract Infection, Adult Introduction A urinary tract infection (UTI) is an infection of any part of the urinary tract. The urinary tract includes the: ??? Kidneys. ??? Ureters. ??? Bladder. ??? Urethra. These organs make, store, and get rid of pee (urine) in the body. Follow these instructions at home: ??? Take jges-pfu-wflsqbl and prescription medicines only as told by [...] o [facility] # [phone] o [facility] # [phone] o [facility] # [phone] ?? If you had cultures done and [...] quit. o National Network of Tobacco Cessation [id number]-IUQM-NOW o [employer] o [employer] [phone] o Sai/Manuel Mccray [phone] FINANCIAL INFORMATION ?? [facility] provides financial counseling to anyone who requests our services. ?? Emergency Physicians are independently contracted to provide your care. You will receive a bill for the care provided to you by the Physician and/or the Physician Animal Geneticist. This will be a separate bill from [...] Patient Education Materials: ENT Otitis Media, Adult, Objd-xl-Ztbw Obstetrics and Gynecology Urinary Tract Infection, Adult, Klwc-pj-Hgjk Follow-Up Instructions: Follow Up With: Where: When: [...] as recommended Patient Signature / or Patient Auto Body Repair Estimator Provider Signature Date documented in this encounter Plan of Treatment Not on file documented as of this encounter Visit Diagnoses Not on filedocumented in this encounter
--- OUTSIDE RECORDS SUMMARY | 2025-04-17 12:14 | XMS_ITS | Encounter Summary ---
Author Organization [employer] ([place], [place], [place], [place]) Address [address] [place] [address] Care Team Providers Care Counselor Manager Name Role Phone Unavailable Primary Care Provider Unavailabl e Encounter Details Date Type Department Care Team (Late st Contact Info) Description 01/04/2020 Transcribed Document [facility] [place] Medicine [address] [place] [address] ProviderLaury MD [address] [place] [address] Social History Tobacco Use Types [...]
--- OUTSIDE RECORDS SUMMARY | 2025-04-17 12:14 | XMS_ITS | Encounter Summary ---
Author Organization [facility] Address [address] 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
--- OUTSIDE RECORDS SUMMARY | 2025-04-17 12:14 | XMS_ITS | Clinical Summary ---
Author Organization [facility] Address [address] [place] [address] Care Team Providers Care Damper Worker Name Role Phone Yang, Maria A Doyle APRN Primary Care Provider [phone] Allergies Active Allergy Reactions Criticality Noted Date [...] tablet by mouth Daily. Active vitamin D (ERGOCALCIFEROL) 1.25 MG (56049 UT) capsule capsule Take 1 capsule by mouth once a week 12 capsule 5 Active Active Problems Problem Noted Date Diagnosed [...] menstrual bleeding. Followed by Dr. Lynch at [facility]. In review of most recent labs and [...] emptying. Contacted her transplant medical team at [facility] this morning with her symptoms [...] Plan (10/04/2024 3:33 PM EDT): Valuated in [facility] for the same approximately 1 month ago. [...] available. I have also requested records from [facility] ED visit which supposedly includes some diagnostic [...] 2023 she received a call from the [facility] that they had a [...] daily. Continues to be followed closely by [facility] transplant as well as Dr. Stevens at [facility]. Assessment & Plan (08/22/2024 11:22 AM EST): On December 02, 2023 she received a call from the [facility] that they had a [...] daily. Continues to be followed closely by [facility] transplant as well as Dr. Stevens at [facility] locally. Assessment & Plan (06/07/2024 12:35 PM EST): Patient last evaluated in our office a little over 1 year ago in April 2023. At that time she was suffering from end-stage renal disease due to diabetic nephropathy, performing home peritoneal dialysis nightly. On December 02, 2023 she received a call from the [facility] that they had a [...] daily. Continues to be followed closely by [facility] transplant as well as Dr. Stevens at [facility] locally. Annual physical exam 03/15/2023 Cervical cancer screening 03/15/2023 Type 2 diabetes mellitus wit h hyperglycemia, with long-term current use of insulin 02/15/2023 Assessment & Plan (02/25/2025 7:41 AM EDT): Patient followed by endocrinology at the [facility]. Patient currently utilizes insulin pump and [...] followed by Dr. Stevens at [facility]. Working towards renal transplant with [facility].. Assessment & Plan (03/15/2023 [...] [facility]. Assessment & Plan (02/15/2023 3:01 PM EDT): Etiology of end-stage renal disease appears to be hypertensive nephrosclerosis as well as diabetic Nephropathy. She was a noncompliant type I diabetic for many years, diagnosed at the age of 12. She is currently performing home peritoneal dialysis nocturnally 6 days/week. Working towards renal transplant with [facility]. To pursue transplant services at [facility] as well but finances are [...] therapy for quite some time by her radar mechanic. Patient has not been on GLP-1 for [...] been started on GLP-1 therapy by her radar mechanic and is back down to 157 pounds [...] of 107. She reports she saw her crystalizer operator who wanted to increase her blood pressure medications but she refused stating she knew she stopped the medications her blood pressure would return to normal. She is now off both BuSpar and venlafaxine with blood pressure 110/74 in office today. Patient feels her mood is stable currently without medications due to some decrease stressors in the home. Her vpzirp-rp-zyd with whom she help caregive from Valentina's [...] to that presentation she was evaluated at [facility] with respiratory issues, tested negative for [...] sneezing. She was a originally evaluated at [facility] over 1 week ago with [...] parasites and C. difficile toxin. 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 02/15/2023 06/07/2024 [...] Description 03/08/2025 2:15 PM EDT Office Visit [facility] [address] [place] [address] [place] [address] Maria A Soria, ANJU Sore throat (Primary Dx); Strep pharyngitis 03/08/2025 Travel 02/26/2025 Telephone [facility] [address] [place] [address] [place] [address] Maria A Soria, ANJU 02/22/2025 10:30 AM EDT Office Visit [facility] [address] [place] [address] [place] [address] Maria A Soria, ADMISSIONS DIRECTOR Type 2 diabetes mellitus with hyperglycemia, with long-term current use of insulin (Primary Dx); Essential hypertension; History of bariatric surgery; History of drug abuse; Mixed hyperlipidemia; Persistent depressive disorder; Pre-operative clearance; Renal transplant recipient 02/22/2025 Travel 02/08/2025 Results Follow-Up [facility] [address] [place] [address] [place] [address] Maria A Soria, ANJU 02/06/2025 10:45 AM EDT Office Visit [facility] [address] [place] [address] [place] [address] Maria A Soria, ANJU Dysuria (Primary Dx) 02/06/2025 Travel 02/04/2025 Refill [facility] [address] [place] [address] [place] [address] Maria A Soria, ANJU 02/03/2025 Refill [facility] [address] [place] [address] [place] [address] Maria A Soria, ANJU from Last 3 Months Immunizations Immunization Administration Dates Next Due -influenza Vac Quardvalent Preservativ 019,04/06/2018 Flublok 18+yrs 04/13/2023 Fluzone >6mos 04/26/2024 Fluzone (or Fluarix & Flulav al for VFC) >6mos 04/07/2021,04/22/2020,05/06/2017 Fluzone Quad >6mos (Multi-dose) 04/05/2012 Hepatitis A 01/29/2019,07/27/2018 Influenza Seasonal Injectable 04/05/2012 Pneumococcal Conjugate 20-Valent (PCV20) 024 Pneumococcal Polysaccharide (PPSV23) 12/21/2018 TD Preservative Free (Teniva) 02/15/2018 Tdap 09/29/2023 Family History Relation Name [...] 02/13/2024 (Patient-Reported (Performed Externally)), 12/30/2022 INFLUENZA VACCINE 02/15/2025 04/26/2024, , 04/07/2021, Additional history exists ANNUAL PHYSICAL 06/07/2025 06/07/2024, 03/15/2023 Hepatitis B [...] A&B AG, Veritor (03/08/2025 1:57 PM EDT) [facility] SARS Antigen Not Detected Not Detected, Presumptive Negative Influenza A Antigen DANICA Not Detected Not Detected Influenza B Antigen DANICA Not Detected Not Detected Internal Control Passed Passed Lot Number [id number] Expiration Date Swab 03/08/2025 1:57 PM EDT Maria A N Yang ADMISSIONS DIRECTOR POINT OF CARE TEST ORDERABL ES Final Result * POC Rapid Strep A (03/08/2025 1:57 PM EDT) [facility] Rapid Strep A Screen Negative Negative, VALID, INVALID, Not Performed [facility] Internal Control Passed Passed [facility] Lot Number [id number] [facility] Expiration Date [facility] Swab 03/08/2025 1:57 PM EDT Maria A Vivek Soria ADMISSIONS DIRECTOR POINT OF CARE TEST ORDERABL ES Final Result Performing Organization Address City/[facility]/ZIP Co de Phone Number [facility]
[address] [place] [address], * POC Glycosylated Hemoglobin (Hb A1C) (02/22/2025 10:26 AM EDT) [facility] Hemoglobin A1C 5.6 4.5 - 5.7 % [facility] Lot Number [id number] [facility] Expiration Date [facility] Blood 02/22/2025 10:2 6 AM EDT Maria A N Yang ADMISSIONS DIRECTOR POINT OF CARE TEST ORDERABL ES Final Result Performing Organization Address City/[facility]/ZIP Co de Phone Number [facility]
[address] [place] [address], * Urine Culture - Urine, Urine, Clean Catch (02/06/2025 10:33 AM EDT) [facility] Urine Culture Final report [facility] Result 1 No growth [facility] Urine Urine specimen obtained by clean catch procedure / Unknown 02/06/2025 10:33 AM EDT 02/06/2025 Comment:Urine Release to [facility] (AMBULATORY) - 02/08/2025 6:06 AM EDT Performed at: 01 - [facility] [address] [place], [place] [id number] Brand Advisor: Jacob Whaley PhD, Phone: [phone] Maria A Soria APRN MICROBIOLOGY - GENERAL ORDE RABLES Final Result [facility] (AMBULATORY) [address] [place] [address], [place] [phone] [facility] [address] [place] [address], [place] [phone] * Lipid Panel (08/22/2024 9:48 AM EST) Pathologist [facility] Total Cholesterol 117 100 - 199 mg/dL [facility] Triglycerides 140 0 - 149 mg/dL [facility] HDL Cholesterol 40 >39 mg/dL [facility] VLDL Cholesterol Christian 24 5 - 40 mg/dL [facility] LDL Chol Calc (NIH) 53 0 - 99 mg/dL [facility] Blood Structure of left upper limb / Unknown 08/22/2024 9:48 AM EST 08/22/2024 Comment:Blood Release to [facility] - 08/23/2024 9:07 AM EST Performed at: 01 - [facility] [address] [place], [place] [id number] Brand Advisor: Jacob Whaley PhD, Phone: [phone] Maria A Soria APRN LAB BLOOD ORDERABLES Final Result Performing Organization Address City/[facility]/ZIP Co de Phone Number [facility] (AMBULATORY) [address] [place] [address], [place] [phone] [facility] [address] [place] [address], * Hepatitis C Antibody (07/23/2019 10:03 AM EST) Hepatitis C Ab Non-Reacti ve Non-Reacti ve 07/23/2019 6:31 PM EST [facility] Blood Venipuncture / Unknown 07/23/2019 10:03 AM EST 07/23/2019 10:38 AM EST Mukul Stevens MD LAB BLOOD ORDERABLES F inal Result [facility]
[address] [place] [address], from Last 3 Months or Most Recently [...] pulse or is breathing): Full Care Teams Damper Worker Relationship Specialty Start Date End Date Maria A Soria, ANJU [address] [id number] PCP - General Family Medicine 02/15/23
--- OUTSIDE RECORDS SUMMARY | 2025-04-17 12:14 | XMS_ITS | Encounter Summary ---
Author Organization [employer] ([place], [place], [place], [place]) Address [address] [place] [address] Care Team Providers Care Insert Cutter Name Role Phone Unavailable Primary Care Provider Unavailabl e Encounter Details Date Type Department Care Team (Late st Contact Info) Description 11/19/2018 Transcribed Document [facility] [place] Medicine [address] [place] [address] ProviderLaury MD [address] [place] [address] Social History Tobacco Use Types Packs/Day [...] : No GI 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 : No Day Care Home Mother Hx : No Heart Attack : No [...] Preferred Communication Mode : Verbal Languages : [place] Child/Parent Domestic Concerns : None Threats of Suicide : No Marry Erickson 11/18/2018 20:14 EDT Height and Weight Height Source : Stated Height Entry Format : [place] Height, Inches : 65 Inch(Converted to: 5 ft 5 Inch, 165.10 cm) Clinical Height : 165.1 cm Weight Source : Bed scale Weight Entry Format : [place] Weight, Pounds : 220 lb Clinical Dosing Weight : 100 kg Body Surface Area-(BSA) : 2.14 m2 Body Mass Index : 36.7 kg/m2 (HI) [place] Body Weight : 57 kg Marry Erickson [...]
--- OUTSIDE RECORDS SUMMARY | 2025-04-17 12:14 | XMS_ITS | Encounter Summary ---
Author Organization [employer] ([place], [place], [place]) Address [address] [place] [address] Care Team Providers Care Regulated Program Manager Name Role Phone Unavailable Primary Care Provider Unavailabl e Encounter Details Date Type Department Care Team (Late st Contact Info) Description 01/05/2020 Transcribed Document [facility] [place] Family Medicine [address] [place] [address] ProviderLaury MD [address] [place] [address] Social History Tobacco Use Types [...] your book, please call the Center at [phone]. documented in this encounter Plan of Treatment Not on file documented as of this encounter Visit Diagnoses Not on filedocumented in this encounter
--- OUTSIDE RECORDS SUMMARY | 2025-04-17 12:14 | XMS_ITS | Encounter Summary ---
Author Organization [employer] ([place], [place], [place]) Address [address] [place] [address] Care Team Providers Care Negative Spotter Name Role Phone Unavailable Primary Care Provider Unavailabl e Encounter Details Date Type Department Care Team (Late st Contact Info) Description 09/28/2019 Transcribed Document [facility] [place] [address] [place] [address] ProviderLaury MD [address] [place] [address] Social History Tobacco Use Types Packs/Day [...] Health Plan: [facility] Policy Number: [id number] Authorization Number: Insurance Primary Name : [facility] Policy Number: [id number] Authorization Status-Primary : Admit approved Reference Number-Primary : [id number] Authorization Number-Primary : [id number] Number of Days Authorized-Primary : 0 Day(s) [...]
--- OUTSIDE RECORDS SUMMARY | 2025-04-17 12:14 | XMS_ITS | Encounter Summary ---
Author Organization [employer] ([place], [place], [place]) Address [address] [place] [address] Care Team Providers Care Network Cable Installer Name Role Phone Unavailable Primary Care Provider Unavailabl e Encounter Details Date Type Department Care Team (Late st Contact Info) Description 01/05/2020 Transcribed Document [facility] [place] [address] [place] [address] ProviderLaury MD [address] [place] [address] Social History Tobacco Use Types [...] 01/05/2020 7:38 EDT Electronically signed by Interface, [facility] Conversion Bureau Chief Cerner at 11/02/2022 10:09 AM CDT documented in this encounter Plan of Treatment Not on file documented as of this encounter Visit Diagnoses Not on filedocumented in this encounter
--- OUTSIDE RECORDS SUMMARY | 2025-04-17 12:14 | XMS_ITS | Encounter Summary ---
Author Organization [employer] ([place], [place], [place], [place]) Address [address] [place] [address] Care Team Providers Care Basketball Commentator Name Role Phone Unavailable Primary Care Provider Unavailabl e Encounter Details Date Type Department Care Team (Late st Contact Info) Description 09/26/2018 Transcribed Document [facility] [place] Family Medicine [address] [place] [address] ProviderLaury MD [address] [place] [address] Social History Tobacco Use Types Packs/Day [...] 10:56 PM CDT [facility] ADDRESS [place], [place] [phone] Name:Crystal Archer Visit Date:09/26/2018 16:44:00 Emergency Department Care Providers: Physician: INDIO PEREA Physician: Our doctors and staff appreciate your choice of [facility] for your emergency medical care. Read these instructions carefully. Please call us if you have any questions about your medical problem. [facility] Emergency Department [phone] [facility] Emergency Department [phone] [facility] Emergency Department [phone] Patient Education Materials Crystal Archer Karen has [...] 07/04/2006 Document Revised: 12/09/2016 Document Reviewed: 03/04/2014 [employer] Interactive Patient Education ? 2017 [employer] FOLLOW UP CARE Most conditions that [...] up o [facility] # [phone] o [facility] # [phone] o [facility] # [phone] ?? If you had cultures done and [...] quit. o National Network of Tobacco Cessation [id number]-NOW o [employer] [employer] o [employer] [phone] o Sai/Manuel Mccray [phone] FINANCIAL INFORMATION ?? [facility] provides financial counseling to anyone who requests our services. ?? Emergency Physicians are independently contracted to provide your care. You will receive a bill for the care provided to you by the Physician and/or the Physician Split Leather Mosser. This will be a separate bill from [...] as recommended Patient Signature / or Patient Liner Machine Operator Provider Signature Date Date/Time 09/26/2018 18:56 [facility] [...] oral tablet loratadine 10 mg oral capsule Magnolia 5 mg-325 mg oral tablet sodium bicarbonate [...]
--- OUTSIDE RECORDS SUMMARY | 2025-04-17 12:14 | XMS_ITS | Encounter Summary ---
Author Organization [employer] ([place], [place]) Address [address] [place] [address] Care Team Providers Care Warehousing Technician Name Role Phone Unavailable Primary Care Provider Unavailabl e Encounter Details Date Type Department Care Team (Late st Contact Info) Description 01/18/2020 Transcribed Document [facility] [place] [address] [place] [address] ProviderLaury MD [address] [place] [address] Social History Tobacco Use Types [...] Laury ProviderMD - 01/18/2020 8:28 PM CDT [place] Suicide Severity Rating Scale (C-SSRS) Entered On: 01/18/2020 21:29 EDT Performed On: 01/18/2020 21:29 EDT by JASON FUENTES RN [place] Suicide Severity Rating Scale (C-SSRS) CSSRS Past [...]
--- OUTSIDE RECORDS SUMMARY | 2025-04-17 12:14 | XMS_ITS | Encounter Summary ---
Author Organization [facility] Address [address] 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
--- OUTSIDE RECORDS SUMMARY | 2025-04-17 12:14 | XMS_ITS | Encounter Summary ---
Author Organization [employer] ([place], [place]) Address [address] [place] [address] Care Team Providers Care Home Theater Installer Name Role Phone Unavailable Primary Care Provider Unavailabl e Encounter Details Date Type Department Care Team (Late st Contact Info) Description 01/04/2020 Transcribed Document [facility] [place] [address] [place] [address] ProviderLaury MD [address] [place] [address] Social History Tobacco Use Types Packs/Day [...] Numbers : Insurance 1 Health Plan: [facility] Policy Number: [id number] Authorization Number: [id number] Insurance Primary Name : [facility] Policy Number: [id number] Authorization Status-Primary : Admit approved Reference Number-Primary : [id number] Authorization Number-Primary : [id number] Number of Days Authorized-Primary : 0 Day(s) [...]
--- OUTSIDE RECORDS SUMMARY | 2025-04-17 12:14 | XMS_ITS | Clinical Summary ---
Author Organization [facility] Address [address] [place] [address] Care Team Providers Care Inventory Specialist Manager Name Role Phone Unavailable Primary Care [...] therelease of HIV test results or diagnoses. [id number] Allergies Active Allergy Reactions Criticality Noted [...]
--- OUTSIDE RECORDS SUMMARY | 2025-04-17 12:14 | XMS_ITS | Encounter Summary ---
Author Organization [facility] Address [address] [place] [address] Care Team Providers Care Raised Printer Name Role Phone Jaquan Conley MD Primary Care Provider + [phone] Reason for Visit * Reason Comments Med Change Request Encounter Details Date Type Department Care Team (Late st Contact Info) Description 03/08/2025 Refill [facility] Endocrinology [address] [place] [address] Paz Echeverria MD [address] [address] Type 2 diabetes mellitus with other specified complication, with long-term current use of insulin ([facility]) Social History Tobacco Use Types Packs/Day Years [...] use of insulin documented in this encounter Additional Health Concerns Assessment Noted Time A fall risk assessment has been complete d for the patient 06/20/2023 12:51 PM EST A Body Mass Index follow-up plan has been documented for the patient 10/11/2024 3:34 PM EDT documented as of this encounter Care Teams Raised Printer Relationship Specialty Start Date End Date Jaquan Conley MD [address] [place] [address] PCP - General 11/28/20 documented as of this encounter
--- OUTSIDE RECORDS SUMMARY | 2025-04-17 12:14 | XMS_ITS | Encounter Summary ---
Author Organization [facility] Address [address] [place] [address] Care Team Providers Care Sleep Lab Technologist Name Role Phone Jaquan Conley MD Primary Care Provider + [phone] Reason for Visit * Reason Comments Med Refill Encounter Details Date Type Department Care Team (Late st Contact Info) Description 03/05/2025 Refill [facility] Endocrinology [address] [place] [address] Marilyn Valencia L, KIER BOILER [address] [facility] [place] [address] [place] [address] Type 2 diabetes mellitus with other specified complication, with long-term current use of insulin ([facility]) Social History [...] documented as of this encounter Care Teams Sleep Lab Technologist Relationship Specialty Start Date End Date Jaquan Conley MD [address] [place] [address] PCP - General 11/28/20 documented as of this encounter
--- OUTSIDE RECORDS SUMMARY | 2025-04-17 12:14 | XMS_ITS | Encounter Summary ---
Author Organization [facility] ([place], [place], [place], [place]) Address [address] [place] [address] Care Team Providers Care Dogman/Woman Name Role Phone Unavailable Primary Care Provider Unavailabl e Encounter Details Date Type Department Care Team (Late st Contact Info) Description 10/31/2018 Transcribed Document [facility] [place] [address] [place] [address] ProviderLaury MD [address] [place] [id number] Social History Tobacco Use Types Packs/Day Years [...] Laury ProviderMD - 10/31/2018 1:17 AM CDT [facility] Depart Summary PERSON INFORMATION Name Crystal Archer Age 28 Years 1990 Sex Female Language PCP Marital Status Phone [id number] Visit Id Visit Reason Specialty Enc Type Emergency Med Service Referred by [facility] Discharge Tracking Id [id number] Checkout 10/30/2018 21:17:02 Checkin 10/30/2018 20:23:00 Acuity 4 - Non-urgent [facility] Dispo Type Arrival 10/30/2018 20:23:00 Reg Status LOS 000 00:54 Address: [address] [place] [address] [facility] [place] [address] P[employer] PHYSICIAN NOTES VITALS INFORMATION Vital Sign Triage Temp 99 Temp Route Oral/Mouth Pulse Rate 92 Respiratory Rate 22 Blood Pressure 169/ 99 LOCATION INFORMATION Arrival Nurse Unit Room Bed 10/30/2018 20:23:00 [facility] ED Waitroom ([facility]) 10/30/2018 20:35:06 [facility] ED 9 10/30/2018 21:17:02 [facility] ED Checkout ([facility]) MEDICAL INFORMATION Allergy Info: No Known [...]
--- OUTSIDE RECORDS SUMMARY | 2025-04-17 12:14 | XMS_ITS | Encounter Summary ---
Author Organization [facility] Address [address] [id number] Care Team Providers Care Cherry Sorter Name Role Phone Maria A Soria HORTICULTURAL FARM MANAGER Primary Care Provider [phone] Encounter Details Date Type Department Care Team (Late st Contact Info) Description 02/26/2025 Telephone [facility] PRIMARY CARE [address] [place] [address] Maria A Soria, HORTICULTURAL FARM MANAGER [address] [place], [place] [id number] Social History Tobacco Use Types Packs/Day Years [...] PM EDT PATIENT NEEDS PREOP SENT TO [facility] AT [phone] documented in this encounter Plan of Treatment Not on file documented as of this encounter Visit Diagnoses Not on filedocumented in this encounter Care Teams Cherry Sorter Relationship Specialty Start Date End Date Maria A Soria APRN [address] [place] [address] PCP - General Family Medicine 02/15/23 documented as of this encounter
--- OUTSIDE RECORDS SUMMARY | 2025-04-17 12:14 | XMS_ITS | Encounter Summary ---
Author Organization [facility] ([place]) Address [address] [place] [address] Care Team Providers Care Capper Machine Operator Name Role Phone Unavailable Primary Care Provider Unavailabl e Encounter Details Date Type Department Care Team (Late st Contact Info) Description 01/04/2020 Transcribed Document [facility] Family Medicine [address] [place] [address] ProviderLaury MD [address] [place] [address] Social History Tobacco Use Types Packs/Day [...]
--- OUTSIDE RECORDS SUMMARY | 2025-04-17 12:14 | XMS_ITS | Encounter Summary ---
Author Organization [employer] ([place]) Address [address] [place] [address] Care Team Providers Care Debt Collection Specialist Name Role Phone Unavailable Primary Care Provider Unavailabl e Encounter Details Date Type Department Care Team (Late st Contact Info) Description 08/24/2019 Transcribed Document [facility] [place] [address] [place] [address] ProviderLaury MD [address] [place] [address] Social History Tobacco Use Types Packs/Day [...] - Historical ProviderMD - 08/24/2019 11:11 AM LACROSSE COACH [facility] IntraOp Summary Primary Physician: LARRY MARTINES MD-SUR Finalized Date/Time: 08/24/19 12:55:12 Pt. Name: FREDDIE RUGGIERO FELICIA /Sex: 1990 Female Med Rec #: [id number] Physician: LARRY MARTINES MD-BRANDEE Financial #: [id number] Pt. Type: O Room/Bed: [facility] Admit/Disch: 08/24/19 09:42:00 - Institution: [facility] Endo - Case Attendance Entry 1 Entry 2 Entry 3 Case Attendee LARRY MARTINES Childress, TOBI J, RN ELLIOTT MOURA TECH MD-SUR Role Performed Surgeon/Proceduralist, Pattern Hand, First Scrub, First First Time In 08/24/19 11:09:00 08/24/19 11:09:00 08/24/19 11:09:00 Time Out 08/24/19 11:15:00 08/24/19 11:15:00 08/24/19 11:15:00 Procedure Gastric Biopsy Esophagogastroduodenosco Esophagogastroduodenosco py, Gastric Biopsy py, Gastric Biopsy Other Attendee Superficial Wound Closed By: Last Modified By: ANGE Green RN Childress, TOBI J, RN Childress, TOBI J, RN 08/24/19 11:14:47 08/24/19 11:14:47 08/24/19 11:14:47 Entry 4 Case Attendee MARGRET MCCULLOUGH SENIOR AGRICULTURAL ASSISTANT Role Performed SENIOR AGRICULTURAL ASSISTANT/Nurse In Mold Coater Time In 08/24/19 11:09:00 Time Out 08/24/19 11:15:00 Procedure Esophagogastroduodenosco py, Gastric Biopsy Other Attendee Superficial Wound Closed By: Last Modified By: ANGE Green RN 08/24/19 11:14:47 [facility] Endo - Case Attendance Audit 08/24/19 11:14:47 Demographic Analyst: GEOVANNA Modifier: HOLMESTJ 1 <+> Time Out 1 <*> Procedure Gastric Biopsy 2 <+> Time Out 2 <*> Procedure Esophagogastroduodenoscopy, Gastric Biopsy 3 <+> Time Out 3 <*> Procedure Esophagogastroduodenoscopy, Gastric Biopsy 4 <+> Time Out 4 <*> Procedure Esophagogastroduodenoscopy, Gastric Biopsy 08/24/19 11:12:38 Demographic Analyst: HOLMESTJ Modifier: HOLMESTJ <+> 1 Procedure 2 <*> Procedure Esophagogastroduodenoscopy 3 <*> Procedure Esophagogastroduodenoscopy 4 <*> Procedure Esophagogastroduodenoscopy 08/24/19 11:11:44 Demographic Analyst: HOLMESTJ Modifier: HOLMESTJ 2 <+> Time In [...] Endo - Case Times Audit 08/24/19 11:13:59 Demographic Analyst: HOLMESTJ Modifier: HOLMESTJ <+> 1 Out Room Time <+> 1 Stop Time <+> 1 Stop Time 08/24/19 11:11:59 Demographic Analyst: HOLMESTJ Modifier: HOLMESTJ <+> 1 Start Time [facility] - Cultures and Spec Summary Entry 1 Cultrures and Specimens Specimen Ordered: Yes Last Modified By: ANGE Green RN 08/24/19 11:14:38 [facility] - Delays Entry 1 Delay Reason Other Duration 0 Minute(s) Comment NO DELAY Last Modified By: ANGE Green RN 08/24/19 11:09:48 [facility] - Delays Audit 08/24/19 11:09:48 Demographic Analyst: [email or web address] Modifier: HOLMESTJ <+> 1 Comment [facility] [...] Modified By: ANGE Green RN 08/24/19 11:09:51 [facility] Endo - Fire Risk Assessment Entry 1 Fire Info Surgical Site or 1- Yes Incision Above the Xyphoid Open O2 Source 1- Yes (Mask or Cannula) Available Ignition 1- Yes (ESU, Laser, Light Source) Fire Risk 3 Assessment Score Fire Score Fire Risk Yes Assessment Complete Fire Risk ANGE Green harvesting contractor Verified By Fire Risk 08/24/19 11:10:00 Assessment Verified Date/Time Fire Risk High Risk Protocol Yes Implemented Standard Fire Yes Safety Precautions Followed Last Modified By: ANGE Green RN 08/24/19 11:10:04 [facility] Endo - General Case Accounting Director 1 Case Information OR Endo 01 [facility] Case Level 1 Room Verified Yes Wound Class II - Clean-Contaminated Specialty SN General Anesthesia Type MAC ASA Class 3 Diagnosis Preop Diagnosis GERD Postop Same As Preop No Postop Diagnosis normal EGD Last Modified By: ANGE Green RN 08/24/19 11:11:13 [facility] Endo - General Case Data Audit 08/24/19 11:14:21 Demographic Analyst: GEOVANNA Modifier: HOLMESTJ <+> 1 Postop Diagnosis [facility] Endo - Intraoperative Assessment Entry 1 Valid [...] Endo - Intraoperative Assessment Audit 08/24/19 12:55:06 Demographic Analyst: JOHNATHANESTJ Modifier: HOLMESTJ <+> 1 Prosthetic/Assistive Devices [facility] Endo - Intraoperative Equipment Entry 1 Type [...] Endo - Patient Positioning Audit 08/24/19 11:12:40 Demographic Analyst: GEOVANNA Modifier: HOLMESTJ 1 <*> Procedure Esophagogastroduodenoscopy [...] Endo - Sign Out Audit 08/24/19 11:14:13 Demographic Analyst: GEOVANNA Modifier: HOLMESTJ <+> 1 RN Sign Out Signature Date/Time <+> 1 Urinary Catheter Documented in IView [facility] Endo - Surgical Procedures Entry 1 Entry [...] ANGE Green RN 08/24/19 11:12:34 08/24/19 11:12:34 [facility] Endo - Surgical Procedures Audit 08/24/19 11:14:04 Demographic Analyst: GEOVANNA Modifier: HOLMMARCIA <+> 1 Stop <+> 2 Stop [facility] Endo - Time Out Entry 1 Procedure [...] Modified By: ANGE Green RN 08/24/19 11:12:41 [facility] Endo - Time Out Audit 08/24/19 11:12:41 Demographic Analyst: GEOVANNA Modifier: HOLMESTJ 1 <*> Procedure to be Performed Esophagogastroduodenoscopy 08/24/19 11:12:26 Demographic Analyst: JOHNATHANESTGiacomo Modifier: HOLMESTJ 1 <*> Beta Renae [...] signed by Rochelle [facility] Conversion Retail Solar Advisor Cerner at 11/02/2022 10:11 AM CDT documented in this encounter Plan of Treatment Not on file documented as of this encounter Visit Diagnoses Not on filedocumented in this encounter
--- OUTSIDE RECORDS SUMMARY | 2025-04-17 12:14 | XMS_ITS | Encounter Summary ---
Author Organization [employer] ([place], [place]) Address [address] [place] [address] Care Team Providers Care Finance Associate Name Role Phone Unavailable Primary Care Provider Unavailabl e Encounter Details Date Type Department Care Team (Late st Contact Info) Description 01/05/2020 Transcribed Document [facility] [place] [address] [place] [address] ProviderLaury MD [address] [place] [address] Social History Tobacco Use Types Packs/Day [...] On: 01/05/2020 8:27 EDT by CRISTOBAL HANSEN, RN-Product Support Engineer Initial Assessment I Previously Documented Living Environment [...] have PCP Listed? : Yes CRISTOBAL HANSEN RN-Product Support Engineer - 01/05/2020 8:27 EDT Initial Assessment II [...] : Discharge transportation, Outpatient services CRISTOBAL HANSEN RN-Product Support Engineer - 01/05/2020 8:27 EDT Narrative Note Narrative Note : Patient underwent laparoscopic gastrectomy sleeve. Lives at home with family, iADLs. Plan is to return home at [place], no services needed..................sds CRISTOBAL HANSEN RN-Product Support Engineer - 01/05/2020 8:27 EDT documented in this encounter Plan of Treatment Not on file documented as of this encounter Visit Diagnoses Not on filedocumented in this encounter
--- OUTSIDE RECORDS SUMMARY | 2025-04-17 12:14 | XMS_ITS | Clinical Summary ---
Author Organization [facility] Address [address] [place] [address] Care Team Providers Care Clinical Field Specialist Name Role Phone Jaquan Conley MD Primary Care Provider + [phone] Allergies Active Allergy Reactions Criticality Noted Date Comments Ibuprofen Hives,Unknown - Lisha ent states they do not know rxn details Medium 04/06/2011 Medications atorvastatin (Lipitor) 40 MG tablet TAKE 1 TABLET BY MOUTH EVERYDAY AT BEDTIME 2 Active calcitriol (Rocaltrol) 0.5 MCG capsule TAKE 1 CAPSULE BY MOUTH ONCE DAILY *EMERGENCY REFILL* 1 Active carvedilol (Coreg) 25 MG tablet Take 1 tablet (25 mg) by mouth 2 (two) times a day. 2 Active hydrALAZINE (Apresoline) 25 MG tablet Take 1 tablet (25 mg) by mouth 2 (two) times a day. 2 Active loratadine (Claritin) 10 MG tablet Take 1 tablet (10 mg) by mouth 1 (one) time each day. 2 Active sodium bicarbonate 650 MG tablet Take 2 tablets (1,300 mg) by mouth 2 (two) times a day. 2 Active NIFEdipine CC (Adalat CC) 60 MG 24 hr tablet Take 1 tablet (60 mg) by mouth 1 (one) time each day. 3 Active BD Insulin Syringe U/F 31G X 5/16 0.5 ML miscIndications:T ype 1 diabetes mellitus with other specified complication Use as instructed to inject insulin 4+ times daily in event of pump failure 100 each 3 3 Active acetone, urine, test stripIndications: Type 2 diabetes mellitus with other specified complication, with long-term current use of insulin 1 strip if needed for high blood sugar (illness, vomiting). Call clinic if positive. 25 each 2 4 Active pantoprazole (Protonix) 40 MG EC tablet Take 1 tablet (40 mg) by mouth 1 (one) time each day before breakfast. Do not crush, chew, or split. Active Multiple Vitamin (multivitamin) tablet Take 1 tablet by mouth 1 (one) time each day. Active famotidine (Pepcid) 20 MG tablet Take by mouth. Activ e valGANciclovir (Valcyte) 450 MG tablet Take 1 [...] Active insulin aspart (NovoLOG) 100 UNIT/ML injection vialIndications:T ype 2 diabetes mellitus with other specified complication, with long-term current use of insulin To be used in insulin pump. MDD 75u 70 mL 1 5 Active Semaglutide, 1 MG/DOSE, (Ozempic, 1 MG/DOSE,) 4 MG/3ML solution pen-injectorIndic ations:Type 2 diabetes mellitus with other specified complication, with long-term current use of insulin Inject 1 mg under the skin 1 (one) time per week. 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 Overview (12/21/2021): Left lower leg Restless leg 12/30/2015 Resolved Problems Problem Noted Date Diagnosed Date Resolved Date Acute renal failure 06/13/2018 04/07/20 25 Encounters Date Type Department Care Team Description 03/08/2025 Refill [facility] Endocrinology [address] [place] [address] Paz Echeverria MD Type 2 diabetes mellitus with other specified complication, with long-term current use of insulin ([facility]) 03/05/2025 Refill [facility] Endocrinology [address] [place] [address] Marilyn Valencia, ANJU Type 2 diabetes mellitus with other specified complication, with long-term current use of insulin ([facility]) 03/05/2025 Telephone [facility] Endocrinology [address] [place] [address] Erica Ventura PA Prior-authorization/ins urance Verification from [...] [facility]-HIV Screening 1990 [facility]-Infant/Child/Adol SDOH Screenings 1990 [id number] Vaccine (#1) 1994 Diabetes: Dental Exam 1999 [...] long-term current use of insulin ([facility]) CYTO DATA CONVERSION Routine 10/29/2014 12:00 AM EDT from Last 3 Months or Most Recently Relevant to Health Maintenance Results * (ABNORMAL) POCT glycosylated hemoglobin (Hb A1C) (05/23/2024 11:03 AM EST) POCT Hemoglobin A1C 5.8 <5.7% Non-Diabe tic % [facility] Kit Lot Number [id number] [facility] Kit Expiration Date 03/17/2026 [facility] Blood Venous blood specimen / Unknown 05/23/2024 11:03 AM EST Erica MENDEZ POINT OF CARE TEST EN TER/EDIT ORDERABLES Final Result [facility] [address] [place] [address] * Cytology (10/29/2014 12:00 AM EDT) 10/29/2014 10/31/2014 12: 33 PM EDT Narrative [facility] - 11/06/2014 11:15 AM EDT PSYCHIATRIC MR #: [id number] [facility] [address] [address] 1990 (Age: 24) FW Collect Date: 10/29/2014 00:00 Receipt Date: 10/31/2014 12:33 Page 1 DEPARTMENT OF PATHOLOGY AND LABORATORY MEDICINE CYTOPATHOLOGY REPORT Email: [email or web address] [phone] ATTENDING MD/Practitioner: John Celestin APRN Service: [facility] Location: OUTS Reported: 11/06/2014 11:15 Collected: 10/29/2014 00:00 INTERPRETATION A. THIN PREP (CERVICAL/VAGINAL): NEGATIVE FOR INTRAEPITHELIAL LESION OR MALIGNANCY. SATISFACTORY FOR EVALUATION; ENDOCERVICAL/ TRANSFORMATION ZONE COMPONENT PRESENT. Slide scanned and imaged by [employer] ThinPrep Imaging System with manual review [...] results is suggested (please call Microbiology at [phone] for results). CLINICAL INFORMATION: Menstrual History: Cyclic Date of Last Menstrual Period: 10/03/14 Other Clinical Conditions: If ASCUS and > 24 years of age, HPV/DNA testing requested. SPECIMEN DESCRIPTION: A: THIN PREP (CERVICAL/VAGINAL) THIN PREP PROCESS CELLULAR ENHANCEMENT ICD: F: A; RT IMAGE [id number] SNOMED CODES: A; [id number] In cases where a pathologist has signed out the report, the service has been rendered in part by a resident. The signing pathologist has performed and is responsible for the reported pathologic evaluation. us Historical Provider LAB PATHOLOGY ORDERABLES Fin al Result [facility] from Last 3 Months or Most Recently Relevant to Health Maintenance Insurance [facility] MEDICAID Care Teams Clinical Field Specialist Relationship Specialty Start Date End Date Jaquan Conley MD [address] [place] [address] PCP - General 11/28/20
--- OUTSIDE RECORDS SUMMARY | 2025-04-17 12:15 | XMS_ITS | Encounter Summary ---
Author Organization [employer] ([place], [place], [place]) Address [address] [place] [address] Care Team Providers Care Supervisor Type Bar And Segment Name Role Phone Unavailable Primary Care Provider Unavailabl e Encounter Details Date Type Department Care Team (Late st Contact Info) Description 09/26/2018 Transcribed Document [facility] [place] [address] [place] [address] ProviderLaury MD [address] [place] [address] Social History Tobacco Use Types Packs/Day [...] - Urgent [facility] Tracking Group : [facility] [place] Dre, Marry 09/26/2018 16:51 EDT ED Visit Reason : Urinary/Voiding Complaints Primary Care Provider : Rema Ferreira, Barrel Coater Accompanied By : Family/Spouse/SO Arrival Mode : [...] : No GI 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 : No Manager General Hx : No Heart Attack : No [...] Preferred Communication Mode : Verbal Languages : [place] Child/Parent Domestic Concerns : None Threats of Suicide : No Marry Erickson 09/26/2018 16:51 EDT Height and Weight Height Source : Stated Height Entry Format : [place] Height, Inches : 65 Inch(Converted to: 5 ft 5 Inch, 165.10 cm) Clinical Height : 165.1 cm Weight Source : Stated Type of Weight Measurement Est : [place] Weight, est lb : 213 lb Estimated Clinical Dosing Weight : 96.82 kg [place] Body Weight : 57 kg Body Surface Area Estimated : 2.11 m2 Body Mass Index Estimated : 35.52 kg/m2 Marry Erikcson R - 09/26/2018 16:51 EDT Medication List [...] ; Status: Documented ; Ordered As Mnemonic: [place] 5 mg-325 mg oral tablet ; Simple [...]
--- OUTSIDE RECORDS SUMMARY | 2025-04-17 12:15 | XMS_ITS | Encounter Summary ---
Author Organization [employer] ([place], [place]) Address [address] [place] [address] Care Team Providers Care Technology Trainer Name Role Phone Unavailable Primary Care Provider Unavailabl e Encounter Details Date Type Department Care Team (Late st Contact Info) Description 08/03/2018 Transcribed Document [facility] [place] [address] [place] [address] ProviderLaury MD [address] [place] [address] Social History Tobacco Use Types Packs/Day [...] - Laury ProviderMD - 08/03/2018 7:32 PM MULTIPLE NEEDLE STITCHER [facility] [address]ESS [place], [place] [phone] Name:Crystal Archer Visit Date:08/03/2018 13:52:00 Emergency Department Care Providers: Physician: MEGHA MAN Physician: Our doctors and staff appreciate your choice of [facility] for your emergency medical care. Read these instructions carefully. Please call us if you have any questions about your medical problem. [facility] Emergency Department [phone] [facility] Emergency Department [phone] [facility] Emergency Department [phone] Patient Education Materials Gianni Crystal Jones has [...] x-ray department to pick them up o [facility] # [phone] o [facility] # [phone] o [facility] # [phone] ?? If you had cultures done and [...] quit. o National Network of Tobacco Cessation [id number]-VONP-NOW o [employer] [facility] [employer] o [employer] [facility] [employer] [phone] o Sai/Manuel Mccray [phone] FINANCIAL INFORMATION ?? [facility] provides financial counseling to anyone who requests our services. ?? Emergency Physicians are independently contracted to provide your care. You will receive a bill for the care provided to you by the Physician and/or the Physician Manager Placement. This will be a separate bill from [...] as recommended Patient Signature / or Patient Security Inspector Provider Signature Date Date/Time 08/03/2018 14:32 [place] [...] Date Electronically signed by Zuleyka Byrd Conversion Ultrasonic Welding Machine Operator Keysha at 10/19/2022 11:22 AM CDT documented in this encounter Plan of Treatment Not on file documented as of this encounter Visit Diagnoses Not on filedocumented in this encounter
--- OUTSIDE RECORDS SUMMARY | 2025-04-17 12:15 | XMS_ITS | Encounter Summary ---
Author Organization [employer] ([place], [place], [place], [place]) Address [address] [place] [address] Care Team Providers Care Deputy Sheriff Lieutenant Name Role Phone Unavailable Primary Care Provider Unavailabl e Encounter Details Date Type Department Care Team (Late st Contact Info) Description 09/07/2018 Transcribed Document [facility] [place] Family Medicine [address] [place] [address] ProviderLaury MD [address] [place] [address] Social History Tobacco Use Types Packs/Day [...] - Laury ProviderMD - 09/07/2018 8:23 PM SEWING MACHINE OPERATOR BBK Triage ED Entered On: 09/07/2018 [...] : No GI 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 : No Director Of Marketing Communications Hx : No Heart Attack : No [...] Source : Stated Height Entry Format : [place] Height, Inches : 65 Inch(Converted to: 5 ft 5 Inch, 165.10 cm) Clinical Height : 165.1 cm Weight Source : Stated Type of Weight Measurement Est : [place] Weight, est lb : 215 lb Estimated Clinical Dosing Weight : 97.73 kg [place] Body Weight : 57 kg Body Surface Area Estimated : 2.12 m2 Body Mass Index Estimated : 35.85 kg/m2 Silvia Cole, - 09/07/2018 15:23 EST Medication List ED Medications Reviewed : Yes Source of Information : Patient Silvia Cole, - 09/07/2018 15:23 EST Medication List (As Of: 09/07/2018 15:30:02 EST) Home Meds Status: Processing ; Ordered As Mnemonic: [place] 5 mg-325 mg oral tablet ; Simple [...]
--- OUTSIDE RECORDS SUMMARY | 2025-04-17 12:15 | XMS_ITS | Encounter Summary ---
Author Organization [employer] ([place], [place], [place], [place]) Address [address] [place] [address] Care Team Providers Care Marine Equipment Test Engineer Name Role Phone Unavailable Primary Care Provider Unavailabl e Encounter Details Date Type Department Care Team (Late st Contact Info) Description 01/08/2019 Transcribed Document [facility] [place] Family Medicine [address] [place] [address] ProviderLaury MD [address] [place] [address]881 Social History Tobacco Use Types Packs/Day Years [...] Laury ProviderMD - 01/08/2019 12:31 AM CDT [facility] ADDRESS [place], [place] [phone] Name:Crystal Archer Visit Date:01/07/2019 18:52:00 Emergency Department Care Providers: Physician: Physician: Our doctors and staff appreciate your choice of [facility] for your emergency medical care. Read these instructions carefully. Please call us if you have any questions about your medical problem. [facility] Emergency Department [phone] [facility] Emergency Department [phone] [facility] Emergency Department [phone] Patient Education Materials Crystal Archer Karen has [...] x-ray department to pick them up o [facility] # [phone] o [facility] # [phone] o [facility] # [phone] ?? If you had cultures done and [...] quit. o National Network of Tobacco Cessation [id number]-RPRR-NOW o [place] Lung Association o [place] Heart Association [phone] o Sai/Manuel Mahendra [phone] FINANCIAL INFORMATION ?? [facility] provides financial counseling to anyone who requests our services. ?? Emergency Physicians are independently contracted to provide your care. You will receive a bill for the care provided to you by the Physician and/or the Physician Show Girl. This will be a separate bill from [...] as recommended Patient Signature / or Patient Ham Boner Provider Signature Date documented in this encounter Plan of Treatment Not on file documented as of this encounter Visit Diagnoses Not on filedocumented in this encounter
--- OUTSIDE RECORDS SUMMARY | 2025-04-17 12:15 | XMS_ITS | Encounter Summary ---
Author Organization [employer] ([place], [place], [place], [place]) Address [address] [place] [address] Care Team Providers Care Senior Front End Engineer Name Role Phone Unavailable Primary Care Provider Unavailabl e Encounter Details Date Type Department Care Team (Late st Contact Info) Description 09/07/2018 Transcribed Document [facility] Family Medicine [address] [place] [address] ProviderLaury MD [address] [place] [address] Social History Tobacco Use Types Packs/Day [...] - Laury ProviderMD - 09/07/2018 9:31 PM SUPERVISOR JOINERS [facility] ADDRESS [place], [place] [phone] Name:Crystal Archer Visit Date:09/07/2018 15:20:00 Emergency Department Care Providers: Physician: MEGHA MAN Physician: Our doctors and staff appreciate your choice of [facility] for your emergency medical care. Read these instructions carefully. Please call us if you have any questions about your medical problem. [facility] Emergency Department [phone] [facility] Emergency Department [phone] [facility] Emergency Department [phone] Patient Education Materials Gianni Crystal Jones has [...] 12/15/2006 Document Revised: 03/06/2017 Document Reviewed: 12/11/2014 Quickflix Interactive Patient Education ? 2017 [employer] Inc. FOLLOW UP CARE Most conditions that [...] x-ray department to pick them up o [facility] # [phone] o [facility] # [phone] o [facility] # [phone] ?? If you had cultures done and [...] quit. o National Network of Tobacco Cessation [id number]-NOW o [place] Lung Association o Mongolian Heart Association [phone] o Sai/Manuel Mccray [phone] FINANCIAL INFORMATION ?? [facility] provides financial counseling to anyone who requests our services. ?? Emergency Physicians are independently contracted to provide your care. You will receive a bill for the care provided to you by the Physician and/or the Physician Retail Special Event Associate. This will be a separate bill [...] as recommended Patient Signature / or Patient Glass Enamel Mixer Provider Signature Date Date/Time 09/07/2018 16:31 Saint [...] oral tablet loratadine 10 mg oral capsule [place] 5 mg-325 mg oral tablet sodium bicarbonate [...]
--- OUTSIDE RECORDS SUMMARY | 2025-04-17 12:15 | XMS_ITS | Encounter Summary ---
Author Organization [employer] ([place], [place], [place], [place]) Address [address] [place] [address] Care Team Providers Care Service Desk Team Lead Name Role Phone Unavailable Primary Care Provider Unavailabl e Encounter Details Date Type Department Care Team (Late st Contact Info) Description 09/26/2018 Transcribed Document [facility] [place] [address] [place] [address] ProviderLaury MD [address] [place] [address] Social History Tobacco Use Types Packs/Day [...] Laury ProviderMD - 09/26/2018 10:56 PM CDT [facility] ADDRESS [place], [place] [phone] Name:Crystal Archer Visit Date:09/26/2018 16:44:00 Emergency Department Care Providers: Physician: INDIO PEREA Physician: Our doctors and staff appreciate your choice of [facility] for your emergency medical care. Read these instructions carefully. Please call us if you have any questions about your medical problem. [facility] Emergency Department [phone] [facility] Emergency Department [phone] [facility] Emergency Department [phone] Patient Education Materials Crystal Archer Karen has [...] 07/04/2006 Document Revised: 12/09/2016 Document Reviewed: 03/04/2014 MyoScience Interactive Patient Education ? 2017 MyoScience Inc. FOLLOW UP CARE Most conditions that [...] up o [facility] # [phone] o [facility] # [phone] o [facility] # [phone] ?? If you had cultures done and [...] quit. o National Network of Tobacco Cessation GKdryoscw1-906-YGAQ-NOW o Swedish Lung Association o Swedish Heart Association [phone] o Sai/Manuel Mccray [phone] FINANCIAL INFORMATION ?? [facility] provides financial counseling to anyone who requests our services. ?? Emergency Physicians are independently contracted to provide your care. You will receive a bill for the care provided to you by the Physician and/or the Physician Financial Dealers. This will be a separate bill from [...] as recommended Patient Signature / or Patient Cannon Pinion Adjuster Provider Signature Date documented in this encounter Plan of Treatment Not on file documented as of this encounter Visit Diagnoses Not on filedocumented in this encounter
--- OUTSIDE RECORDS SUMMARY | 2025-04-17 12:15 | XMS_ITS | Clinical Summary ---
Author Organization [employer] ([place], [place], [place], [place]) Address [address] [place] [address] Care Team Providers Care Ticketing Agent Name Role Phone Unavailable Primary Care [...] Date Blaine rded Speak language other than Yoruba at home Not on file 07/30/2023 Want [...] Hepatitis C Screening 2007 Pap Smear 2010 Tobacco Cessation Counseling and Screening (12+) 05/21/2024 05/21/2023 COVID-19 VACCINE ( season) 2025 Influenza Vaccine (#1) 2025 9, 04/06/2018, 04/05/2012, Additional history exists DTAP/TDAP/TD VACCINES (2 - Td or Tdap) 02/16/2028 02/15/2018 Pneumococcal Vaccine: 0-49 Years Aged Out 12/21/2018 No longer eligible based on patient's age to complete this topic Insurance [facility] Advance Directives For more information, please contact: [phone] * Full Code (Latest Code Status on File) Date Activated Date Inactivated Comments 09/23/2022 6:27 AM 09/23/2022 11:31 AM
--- OUTSIDE RECORDS SUMMARY | 2025-04-17 12:15 | XMS_ITS | Referral Summary ---
Author Organization [employer] ([place], [place], [place], [place]) Address [address] [place] [address] Care Team Providers Care Stripper Soft Plastic Name Role Phone Unavailable Primary Care [...] Date Blaine rded Speak language other than Azeri at home Not on file 07/30/2023 Want [...] file Insurance Lb MONTALVO MARTIN [place] [id number] [facility] Advance Directives For more information, please contact: [phone] * Full Code (Latest Code Status on File) Date Activated Date Inactivated Comments 09/23/2022 6:27 AM 09/23/2022 11:31 AM
--- OUTSIDE RECORDS SUMMARY | 2025-04-17 12:15 | XMS_ITS | Encounter Summary ---
Author Organization [employer] ([place], [place], [place], [place]) Address [address] [place] [address] Care Team Providers Care Rn Telemetry Name Role Phone Unavailable Primary Care Provider Unavailabl e Encounter Details Date Type Department Care Team (Late st Contact Info) Description 09/07/2018 Transcribed Document [facility] [place] [address] [place] [address] ProviderLaury MD [address] [place] [address] Social History Tobacco Use Types Packs/Day [...] - Laury ProviderMD - 09/07/2018 9:31 PM CANDY SEPARATOR [facility] ADDRESS [place], [place] [phone] Name:Crystal Archer Visit Date:09/07/2018 15:20:00 Emergency Department Care Providers: Physician: MEGHA MAN Physician: Our doctors and staff appreciate your choice of [facility] for your emergency medical care. Read these instructions carefully. Please call us if you have any questions about your medical problem. [facility] Emergency Department [phone] [facility] Emergency Department [phone] [facility] Emergency Department [phone] Patient Education Materials Gianni Crystal Jones has [...] 12/15/2006 Document Revised: 03/06/2017 Document Reviewed: 12/11/2014 Explore Engage Interactive Patient Education ? 2017 [employer] Eng[employer] Inc. FOLLOW UP CARE Most conditions that [...] x-ray department to pick them up o [facility] # [phone] o [facility] # [phone] o [facility] # [phone] ?? If you had cultures done and [...] quit. o National Network of Tobacco Cessation [id number]-DDZN-NOW o [place] Lung Association o [place] Island[place] Heart Association [phone] o Sai/Manuel Mccray [phone] FINANCIAL INFORMATION ?? [facility] provides financial counseling to anyone who requests our services. ?? Emergency Physicians are independently contracted to provide your care. You will receive a bill for the care provided to you by the Physician and/or the Physician Home Office Claims Examiner. This will be a separate bill [...] as recommended Patient Signature / or Patient Geography Faculty Member Provider Signature Date Electronically signed by Zuleyka Byrd Conversion Tape Rules Printing Machine Operator Cerner at 10/19/2022 11:22 AM CDT documented in this encounter Plan of Treatment Not on file documented as of this encounter Visit Diagnoses Not on filedocumented in this encounter
--- OUTSIDE RECORDS SUMMARY | 2025-04-17 12:15 | XMS_ITS | Clinical Summary ---
Author Organization [facility] Address [address] [place] [address] Care Team Providers Care Disability Examiner Name Role Phone Jaquan Conley MD Primary Care Provider [phone] Social History Tobacco Use Types Packs/Day Years [...] Procedure Name Priority Date/Time Associated Diagnosis Comments CMP COMPREHENSIVE METABOLIC PANEL Routine 12/31/2024 9:28 AM EDT LIPID PANEL Routine 12/31/2024 9:28 AM EDT HEPATITIS C ANTIBODY Routine 05/19/2023 8:10 AM EDT from Last 3 Months or Most Recently Relevant to Health Maintenance Results * (ABNORMAL) Lipid panel (12/31/2024 9:28 AM [...] 9:28 AM EDT 12/31/2024 9:54 AM EDT [facility] - 12/31/2024 10:31 AM EDT [place] [address] us Nikki Jeffery INSTITUTIONAL ASSET MANAGER LAB BLOOD ORDERABLES Final Re sult Performing Organization Address City/State/[facility] Co de Phone Number [facility] [address] [place] [address], [facility] Remisol 2.0 SS Pathology Department [address] [place] [address] * (ABNORMAL) Comprehensive metabolic panel (12/31/2024 9:28 AM EDT) Sodium 142 136 - 145 mmol/L 12/31/2024 10:31 AM EDT [facility] Remisol 2.0 SS Potassium 4.9 3.5 - 5.1 mmol/L 12/31/2024 10:31 AM EDT [facility] Remisol 2.0 SS Chloride 111(H) 98 - 110 mmol/L 12/31/2024 10:31 AM EDT [facility] Rem[facility] 2.0 SS CO2 23 21 - 31 mmol/L 12/31/2024 10:31 AM EDT [facility] 2.0 SS Anion Gap 8.0 2.0 - 11.0 12/31/2024 10:31 AM EDT L [facility] Remisol 2.0 SS Calcium 9.0 8.6 - 10.2 mg/dL 12/31/2024 10:31 AM EDT [facility] Remisol 2.0 SS Glucose 169(H) 74 - 109 mg/dL 12/31/2024 10:31 AM EDT [facility] Rem[facility] 2.0 SS BUN 20 7 - 25 mg/dL 12/31/2024 10:31 AM EDT [facility] Remisol 2.0 SS Creatinine 1.31(H) 0.60 - 1.20 mg/dL 12/31/2024 10:31 AM EDT L [facility] Remisol 2.0 SS BUN/Creatinine Ratio 15.3 6.0 - 22.0 12/31/2024 10:31 AM EDT [facility] Remisol 2.0 SS Albumin 3.4(L) 3.5 - 5.2 Gram/dL 12/31/2024 10:31 AM EDT [facility] CH Remisol 2.0 SS Total Protein 6.1(L) 6.4 - 8.9 Gram/dL 12/31/2024 10:31 AM EDT [facility] CH Remisol 2.0 SS A/G Ratio 1.3 1.0 - 1.7 12/31/2024 10:31 AM EDT L [facility] Remisol 2.0 SS Alkaline Phosphatase 144(H) 34 - 104 Units/Lite r 12/31/2024 10:31 AM EDT L [facility] Remisol 2.0 SS ALT (SGPT) 19 <=24 Units/Lite r 12/31/2024 10:31 AM EDT L [facility] Remisol 2.0 SS AST 19 13 - 39 Units/Lite r 12/31/2024 10:31 AM EDT [facility] Remisol 2.0 SS Total Bilirubin 0.4 0.3 - 1.0 mg/dL 12/31/2024 10:31 AM EDT [facility] CH Remisol 2.0 SS Globulin, Total 2.7 2.0 - 3.5 Gram/dL 12/31/2024 10:31 AM EDT L CH Remisol 2.0 SS EGFR 54(L) >=60 mL/min/1.7 3m2 12/31/2024 10:31 AM EDT [facility] Remisol 2.0 Comment:eGFR calculation per formed using the CKD-EPI 2020 equation (race variable excluded) Blood Venous Draw / Unknown 12/31/2024 9:28 AM EDT 12/31/2024 9:54 AM EDT Narrative [facility] - 12/31/2024 10:31 AM ED[place] [address] Nikki Jeffery APRN LAB BLOOD ORDERABLES Final Re sult Performing Organization Address [facility] Co de Phone Number [facility] [address] [place] [address], [facility] Remisol 2.0 Pathology Department [address] [place] [address] * Hepatitis C antibody (05/19/2023 8:10 AM EDT) Hep C Virus Ab NONREACTIVE Nonreactive 05/19/2023 12:09 PM EDT [facility] CH Remisol Blood 05/19/2023 8:10 AM EDT 05/19/2023 11:19 AM EDT Yue Kraft MD LAB BLOOD ORDERABLES Edited Resu lt - Final Performing Organization Address [facility] Co de Phone Number [facility] [address] [place] [address], [facility] Remisol Pathology Department [address] [place] [address] from Last 3 Months or Most Recently Relevant to Health Maintenance Insurance [place] Care Teams Disability Examiner Relationship Specialty Start Date End Date Jaquan Conley MD [address] [place] [address] [place] [phone] PCP - General Internal Medicine 09/18/20
--- OUTSIDE RECORDS SUMMARY | 2025-04-17 12:15 | XMS_ITS | Encounter Summary ---
Author Organization [employer] ([place], [place], [place], [place]) Address [address] [place] [address] Care Team Providers Care Report Programmer Name Role Phone Unavailable Primary Care Provider Unavailabl e Encounter Details Date Type Department Care Team (Late st Contact Info) Description 09/07/2018 Transcribed Document [facility] Family Medicine [address] [place] [address] ProviderLaury MD [address] [place] [address] Social History Tobacco Use Types Packs/Day [...] - Laury ProviderMD - 09/07/2018 9:31 PM FULLER BRUSH MAN [facility] Emergency Department Depart Summary PERSON INFORMATION Name Crystal Archer Age 28 Years 1990 Sex Female Language PCP Marital Status Phone [phone] Visit Id Visit Reason Specialty Enc Type Emergency Med Service Referred by Track Group GM [place] Discharge Tracking Id [id number] Checkout 09/07/2018 16:31:16 Checkin 09/07/2018 15:20:00 Acuity 4 - Non-urgent [facility] Dispo Type Arrival 09/07/2018 15:20:00 Reg Status LOS 000 01:11 Address: [address] [place] [address] [place] [address] POWERFORMS PHYSICIAN NOTES VITALS INFORMATION Vital Sign Triage Temp 99.1 Temp Route Oral/Mouth Pulse Rate 61 Respiratory Rate 20 Blood Pressure 145/ 91 LOCATION INFORMATION Arrival Nurse Unit Room Bed 09/07/2018 15:20:00 [facility] ED Waitroom ([facility]) 09/07/2018 15:34:51 [facility] ED 9 09/07/2018 16:31:16 [facility] [...]
--- OUTSIDE RECORDS SUMMARY | 2025-04-17 12:15 | XMS_ITS | Encounter Summary ---
Author Organization [employer] ([place], [place], [place], [place]) Address [address] [place] [address] Care Team Providers Care Maternal Fetal Physician Name Role Phone Unavailable Primary Care Provider Unavailabl e Encounter Details Date Type Department Care Team (Late st Contact Info) Description 12/24/2018 Transcribed Document [facility] [place] Family Medicine [address] [place] [address] ProviderLaury MD [address] [place] [address] Social History Tobacco Use Types Packs/Day [...] Laury ProviderMD - 12/24/2018 7:19 PM CDT [facility] ADDRESS [place], [place] [phone] Name:Crystal Archer Visit Date:12/24/2018 15:01:00 Emergency Department Care Providers: Physician: MEGHA MAN Physician: Our doctors and staff appreciate your choice of [facility] for your emergency medical care. Read these instructions carefully. Please call us if you have any questions about your medical problem. [facility] Emergency Department [phone] [facility] Emergency Department [phone] [facility] Emergency Department [phone] Patient Education Materials Gianni Crystal Karen has [...] Medicines may be prescribed or be available asvp-rra-rpahkix. The medicines may be: ??? Taken by mouth (orally). ??? Applied as a cream. Follow these instructions at home: ??? Take or apply txtp-pek-jpyungu and prescription medicines only as told by [...] 03/21/2012 Document Revised: 02/27/2017 Document Reviewed: 01/05/2016 Clew Interactive Patient Education ? 2019 My[employer]. FOLLOW UP CARE Most conditions that require [...] the x-ray department to pick them up [facility] # [phone] [facility] # [phone] o [facility] # [phone] ?? If you had cultures done and [...] quit. o National Network of Tobacco Cessation [id number]-FZHI-NOW o [employer] Lung Association o Palestinian Heart Association [phone] o Sai/Manuel Mccray [phone] FINANCIAL INFORMATION ?? [facility] provides financial counseling to anyone who requests our services. ?? Emergency Physicians are independently contracted to provide your care. You will receive a bill for the care provided to you by the Physician and/or the Physician Manugrapher. This will be a separate bill from [...] as recommended Patient Signature / or Patient Handbag Frames Inspector Provider Signature Date Electronically signed by [facility] Conversion Circulation Sales Representative Cerner at 10/19/2022 11:23 AM CDT documented in this encounter Plan of Treatment Not on file documented as of this encounter Visit Diagnoses Not on filedocumented in this encounter
--- OUTSIDE RECORDS SUMMARY | 2025-04-17 12:15 | XMS_ITS | Encounter Summary ---
Author Organization [employer] ([place], [place], [place], [place]) Address [address] [place] [address] Care Team Providers Care Director Of Real Estate Name Role Phone Unavailable Primary Care Provider Unavailabl e Encounter Details Date Type Department Care Team (Late st Contact Info) Description 08/03/2018 Transcribed Document [facility] [place] [address] [place] [address] ProviderLaury MD [address] [place] [address] Social History Tobacco Use Types Packs/Day [...] - Laury ProviderMD - 08/03/2018 7:32 PM VP PRODUCTION [facility] Emergency Department Depart Summary PERSON INFORMATION Name Crystal Archer Age 27 Years 1990 Sex Female Language PCP Marital Status Phone [phone] Visit Id Visit Reason Specialty Enc Type Emergency Med Service Referred by Track Group GM [place] Discharge Tracking Id [id number] Checkout 08/03/2018 14:32:57 Checkin 08/03/2018 13:52:00 Acuity 3 - Urgent [facility] Dispo Type Arrival 08/03/2018 13:52:00 Reg Status LOS 000 00:40 Address: [address] [place] [address] [place] [address] POWERFORMS PHYSICIAN NOTES VITALS INFORMATION Vital Sign Triage Temp 98.1 Temp Route Oral/Mouth Pulse Rate 90 Respiratory Rate 18 Blood Pressure 152/ 87 LOCATION INFORMATION Arrival Nurse Unit Room Bed 08/03/2018 13:52:00 [facility] ED Waitroom ([facility]) 08/03/2018 13:55:29 [facility] ED 3 08/03/2018 14:32:57 [facility] ED Checkout ([facility]) MEDICAL INFORMATION Allergy Info: No Known Allergies PATIENT EDUCATION INFORMATION Instructions: Follow up: DIAGNOSIS documented in this encounter Plan of Treatment Not on file documented as of this encounter Visit Diagnoses Not on filedocumented in this encounter
--- OUTSIDE RECORDS SUMMARY | 2025-04-17 12:15 | XMS_ITS | Encounter Summary ---
Author Organization [employer] ([place], [place], [place], [place]) Address [address] [place] [address] Care Team Providers Care Supervising Broker Name Role Phone Unavailable Primary Care Provider Unavailabl e Encounter Details Date Type Department Care Team (Late st Contact Info) Description 12/24/2018 Transcribed Document [facility] [place] Family Medicine [address] [place] [address] ProviderLaury MD [address] [place] [address] Social History Tobacco Use Types Packs/Day [...] Laury ProviderMD - 12/24/2018 7:19 PM CDT [facility] ADDRESS [place], [place] [phone] Name:Crystal rAcher Visit Date:12/24/2018 15:01:00 Emergency Department Care Providers: Physician: MEGHA MAN Physician: Our doctors and staff appreciate your choice of [facility] for your emergency medical care. Read these instructions carefully. Please call us if you have any questions about your medical problem. Emergency Department [phone] [facility] Emergency Department [phone] [facility] Emergency Department [phone] Patient Education Materials Gianni Crystal Karen has [...] Medicines may be prescribed or be available wzfh-kcm-iypisqq. The medicines may be: ??? Taken by mouth (orally). ??? Applied as a cream. Follow these instructions at home: ??? Take or apply nome-lxa-mfqtkam and prescription medicines only as told by [...] 03/21/2012 Document Revised: 02/27/2017 Document Reviewed: 01/05/2016 [employer] Interactive Patient Education ? 2019 [employer]. FOLLOW UP CARE Most conditions that require [...] them up [facility] # [phone] [facility] # [phone] o [facility] # [phone] ?? If you had cultures done and [...] quit. o National Network of Tobacco Cessation [id number]-SBPR-NOW o [place] Lung Association o [place] Heart Association [phone] o Sai/Manuel Mccray [phone] FINANCIAL INFORMATION ?? [facility] provides financial counseling to anyone who requests our services. ?? Emergency Physicians are independently contracted to provide your care. You will receive a bill for the care provided to you by the Physician and/or the Physician Medical Leader. This will be a separate bill from [...] as recommended Patient Signature / or Patient Railroad Dispatcher Provider Signature Date Date/Time 12/24/2018 15:19 Saint [...]
--- OUTSIDE RECORDS SUMMARY | 2025-04-17 12:15 | XMS_ITS | Encounter Summary ---
Author Organization [employer] ([place], [place], [place], [place]) Address [address] [place] [address] Care Team Providers Care Risk Assessor Name Role Phone Unavailable Primary Care Provider Unavailabl e Encounter Details Date Type Department Care Team (Late st Contact Info) Description 12/24/2018 Transcribed Document [facility] [address] [place] [address] ProviderLaury MD [address] [place] [address] Social History Tobacco Use Types Packs/Day [...] Rash Primary Care Provider : Rema Ferreira, Gutter Installer Accompanied By : Family/Spouse/SO Arrival Mode [...] : No GI 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 : No Clay Stain Mixer Hx : No Heart Attack : [...] Source : Stated Height Entry Format : [place] Height, Inches : 65 Inch(Converted to: 5 ft 5 Inch, 165.10 cm) Clinical Height : 165.1 cm Weight Source : Bed scale Weight Entry Format : [place] Weight, Pounds : 221 lb Clinical Dosing Weight : 100.45 kg Body Surface Area-(BSA) : 2.15 m2 Body Mass Index : 36.9 kg/m2 (HI) [place] Body Weight : 57 kg Maddi Tomlin [...] EDT Electronically signed by Zuleyka Byrd Conversion Family And Divorce Legal Assistant Cerner at 10/19/2022 11:23 AM CDT documented in this encounter Plan of Treatment Not on file documented as of this encounter Visit Diagnoses Not on filedocumented in this encounter
--- OUTSIDE RECORDS SUMMARY | 2025-04-17 12:15 | XMS_ITS | Encounter Summary ---
Author Organization [employer] ([place], [place], [place], [place]) Address [address] [place] [address] Care Team Providers Care Bioprocessing Manufacturing Technician Name Role Phone Unavailable Primary Care Provider Unavailabl e Encounter Details Date Type Department Care Team (Late st Contact Info) Description 01/07/2019 Transcribed Document [facility] [place] [address] [place] [address] ProviderLaury MD [address] [place] [address] Social History Tobacco Use Types Packs/Day [...] : No GI 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 : No Salesperson Stereo Equipment Hx : No Heart Attack : No [...] Estimated Onset Date: Unspecified ; Created By: Pealr Waller; Reaction Status: Active ; Category: Drug [...]
--- OUTSIDE RECORDS SUMMARY | 2025-04-17 12:15 | XMS_ITS | Encounter Summary ---
Author Organization [employer] ([place], [place], [place], [place]) Address [address] [place] [address] Care Team Providers Care Appliance Adjuster Name Role Phone Unavailable Primary Care Provider Unavailabl e Encounter Details Date Type Department Care Team (Late st Contact Info) Description 11/19/2018 Transcribed Document [facility] Family Medicine [address] [place] [address] ProviderLaury MD [address] [place] [address] Social History Tobacco Use Types Packs/Day [...] Laury ProviderMD - 11/19/2018 1:52 AM CDT [facility] ADDRESS [place], [place] [phone] Name:Crystal Archer Visit Date:11/18/2018 20:06:00 Emergency Department Care Providers: Physician: Clara Elias Phys Asst Physician: Our doctors and staff appreciate your choice of [facility] for your emergency medical care. Read these instructions carefully. Please call us if you have any questions about your medical problem. [facility] Emergency Department [phone] [facility] Emergency Department [phone] [facility] Emergency Department [phone] Patient Education Materials Gianni Crystal Jones has [...] start to feel better. ??? Only take nuli-dfw-fawxafy or prescription medicines for pain, discomfort, or [...] 01/29/2014 Elsevier Interactive Patient Education ? 2017 [employer] Obstetrics and Gynecology Urinary Tract Infection, Adult Introduction A urinary tract infection (UTI) is an infection of any part of the urinary tract. The urinary tract includes the: ??? Kidneys. ??? Ureters. ??? Bladder. ??? Urethra. These organs make, store, and get rid of pee (urine) in the body. Follow these instructions at home: ??? Take guzr-jri-dcvqhgq and prescription medicines only as told by [...] o [facility] # [phone] o [facility] # [phone] o [facility] # [phone] ?? If you had cultures done and [...] quit. o National Network of Tobacco Cessation [id number]-NOW o [employer] Lung Association o [employer] Heart Association [phone] o Sai/Manuel Mccray [phone] FINANCIAL INFORMATION ?? [facility] provides financial counseling to anyone who requests our services. ?? Emergency Physicians are independently contracted to provide your care. You will receive a bill for the care provided to you by the Physician and/or the Physician Flight Information Expediter. This will be a separate bill from [...] Patient Education Materials: ENT Otitis Media, Adult, Dvwm-tt-Ydaq Obstetrics and Gynecology Urinary Tract Infection, Adult, Jdlr-ff-Xkbm Follow-Up Instructions: Follow Up With: Where: When: [...] as recommended Patient Signature / or Patient Piece Dyer Provider Signature Date Date/Time 11/18/2018 21:52 Saint [...]
--- OUTSIDE RECORDS SUMMARY | 2025-04-17 12:15 | XMS_ITS | Encounter Summary ---
Author Organization [employer] ([place], [place], [place], [place]) Address [address] [place] [address] Care Team Providers Care Industrial Gas Fitter Helper Name Role Phone Unavailable Primary Care Provider Unavailabl e Encounter Details Date Type Department Care Team (Late st Contact Info) Description 08/03/2018 Transcribed Document [facility] Family Medicine [address] [place] [address] ProviderLaury MD [address] [place] [address] Social History Tobacco Use Types Packs/Day [...] - Laury ProviderMD - 08/03/2018 7:32 PM CONE OPERATOR [facility] ADDRESS [place], [place] [phone] Name:Crystal Archer Visit Date:08/03/2018 13:52:00 Emergency Department Care Providers: Physician: MEGHA MAN Physician: Our doctors and staff appreciate your choice of [facility] for your emergency medical care. Read these instructions carefully. Please call us if you have any questions about your medical problem. [facility] Emergency Department [phone] [facility] Emergency Department [phone] [facility] Emergency Department [phone] Patient Education Materials Gianni Crystal Jones has [...] x-ray department to pick them up o [facility] # [phone] o [facility] # [phone] o [facility] # [phone] ?? If you had cultures done and [...] quit. o National Network of Tobacco Cessation ENaawsgdb6-706-YDIV-NOW o [place] Lung Association o [place] Heart Association [phone] o Sai/Manuel Mccray [phone] FINANCIAL INFORMATION ?? [facility] provides financial counseling to anyone who requests our services. ?? Emergency Physicians are independently contracted to provide your care. You will receive a bill for the care provided to you by the Physician and/or the Physician Enterprise Application Analyst. This will be a separate bill [...] recommended Patient Signature / or Patient Lead Loader Provider Signature Date documented in this encounter Plan of Treatment Not on file documented as of this encounter Visit Diagnoses Not on filedocumented in this encounter
--- OUTSIDE RECORDS SUMMARY | 2025-04-17 12:15 | XMS_ITS | Encounter Summary ---
Author Organization [facility] Address [address], [address] [place] [address] Care Team Providers Care Ice Crusher Name Role Phone Jaquan Conley MD Primary Care Provider [phone] Reason for Referral * Imaging (Emergency) - Closed Specialty Diagnoses / Procedures Referred By Contac t Referred To Contact Radiology Diagnoses Urinary retention Procedures US RENAL COMPLETE Yue Abdalla APRN [address] [place] [address] Phone: tel: Referral ID Status Reason Start Date Expiration Date Visits Re quested Visits Authorized [id number] Closed 01/09/2021 01/09/2022 1 1 Encounter Details Date Type Department Care Team (Latest Contact Info) Description 01/09/2021 Transcribe Orders [facility] PRE ACCESS [address] [place] [address] Yue Abdalla APRN [address] [place] [address] Urinary retention (Primary Dx) Social [...] abnormality of the kidneys or urinary bladder. [facility] Rm GIFTED PROGRAM TEACHER [facility] [place] ORDERABLES Final Result documented in this encounter Visit Diagnoses Diagnosis Urinary retention- Primary Retention of urine, unspecified Urinary retention Retention of urine, unspecified documented in this encounter Care Teams Ice Crusher Relationship Specialty Start Date End Date Jaquan Conley MD [address] [place] [address] PCP - General Internal Medicine 01/09/21 documented as of this encounter
--- OUTSIDE RECORDS SUMMARY | 2025-04-17 12:15 | XMS_ITS | Encounter Summary ---
Author Organization [employer] ([place], [place], [place], [place]) Address [address] [place] [address] Care Team Providers Care Risk Officer Name Role Phone Unavailable Primary Care Provider Unavailabl e Encounter Details Date Type Department Care Team (Late st Contact Info) Description 08/03/2018 Transcribed Document [facility] Family Medicine [address] [place] [address] ProviderLaury MD [address] [place] [address] Social History Tobacco Use Types Packs/Day [...] - Laury ProviderMD - 08/03/2018 6:57 PM STUDENT SERVICES DIRECTOR [facility] Triage ED Entered On: 08/03/2018 14:06 [...] dysuria since 0430. D/CD from [facility] 07/22 AMA for UTI. Health [...] : No GI 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 : No Radioactivity Technician Hx : No Heart Attack : [...] Source : Stated Height Entry Format : [place] Height, Inches : 65 Inch(Converted to: 5 ft 5 Inch, 165.10 cm) Clinical Height : 165.1 cm Weight Source : Stated Type of Weight Measurement Est : [place] Weight, est lb : 215 lb Estimated Clinical Dosing Weight : 97.73 kg [place] Body Weight : 57 kg Body Surface [...]
--- OUTSIDE RECORDS SUMMARY | 2025-04-17 12:15 | XMS_ITS | Encounter Summary ---
Author Organization [employer] ([place], [place], [place], [place]) Address [address] [place] [address] Care Team Providers Care Dub Room Engineer Name Role Phone Unavailable Primary Care Provider Unavailabl e Encounter Details Date Type Department Care Team (Late st Contact Info) Description 01/08/2019 Transcribed Document [facility] Family Medicine [address] [place] [address] ProviderLaury MD [address] [place] [address] Social History Tobacco Use Types Packs/Day Years [...] Sex Female Language PCP Marital Status Phone [phone] Visit Id Visit Reason Specialty Enc Type Emergency Med Service Referred by Track Group [facility] [place] Discharge Tracking Id [id number] Checkout 01/07/2019 20:31:56 Checkin 01/07/2019 18:52:00 Acuity 3 - Urgent [facility] Dispo Type Arrival 01/07/2019 18:52:00 Reg Status LOS 000 01:39 Address: [address] [place] [address] [place] [address] POWERFORMS PHYSICIAN NOTES VITALS INFORMATION Vital Sign Triage Temp 99.4 Temp Route Pulse Rate 96 Respiratory Rate 16 Blood Pressure 137/ 85 LOCATION INFORMATION Arrival Nurse Unit Room Bed 01/07/2019 18:52:00 [facility] ED Waitroom (K) 01/07/2019 20:31:56 [facility] ED Checkout (K) MEDICAL INFORMATION Allergy Info: NSAIDs PATIENT EDUCATION INFORMATION Instructions: Follow up: DIAGNOSIS documented in this encounter Plan of Treatment Not on file documented as of this encounter Visit Diagnoses Not on filedocumented in this encounter
--- OUTSIDE RECORDS SUMMARY | 2025-04-17 12:15 | XMS_ITS | Encounter Summary ---
Author Organization [facility] Address [address] [place] [address] Care Team Providers Care Rougher Helper Name Role Phone Jaquan Conley MD Primary Care Provider [phone] Reason for Visit * Reason Comments Med Refill Encounter Details Date Type Department Care Team (Late st Contact Info) Description 09/25/2024 Refill [facility] - Transplantation Surgery [address] [address] Cb Forrester MD [address], [address] [place] [address] Social History Tobacco Use Types Packs/Day Years [...] on filedocumented in this encounter Care Teams Rougher Helper Relationship Specialty Start Date End Date Jaquan Conley MD [address] [place] [address] [place] [phone] PCP - General Internal Medicine 09/18/20 documented as of this encounter
--- OUTSIDE RECORDS SUMMARY | 2025-04-17 12:15 | XMS_ITS | Encounter Summary ---
Author Organization [employer] ([place], [place], [place], [place]) Address [address] [place] [address] Care Team Providers Care Labor Union Business Representative Name Role Phone Unavailable Primary Care Provider Unavailabl e Encounter Details Date Type Department Care Team (Late st Contact Info) Description 12/24/2018 Transcribed Document [facility] [place] Family Medicine [address] [place] [address] ProviderLaury MD [address] [place] [address] Social History Tobacco Use Types Packs/Day [...] Laury ProviderMD - 12/24/2018 7:19 PM CDT [facility] Emergency Department Depart Summary PERSON INFORMATION Name Crystal Archer Age 28 Years 1990 Sex Female Language PCP Marital Status Phone [phone] Visit Id Visit Reason Specialty Enc Type Emergency Med Service Referred by Track Group [facility] Discharge Tracking Id [id number] Checkout 12/24/2018 15:19:27 Checkin 12/24/2018 15:01:00 Acuity 4 - Non-urgent [facility] Dispo Type Arrival 12/24/2018 15:01:00 Reg Status LOS 000 00:18 Address: [address] [place], [place] [address] [address] POWERFORMS PHYSICIAN NOTES VITALS INFORMATION Vital Sign Triage Temp 98.6 Temp Route Oral/Mouth Pulse Rate 101 Respiratory Rate 20 Blood Pressure 179/ 89 LOCATION INFORMATION Arrival Nurse Unit Room Bed 12/24/2018 15:01:00 [facility] ED Waitroom ([facility]) 12/24/2018 15:04:15 [facility] ED 1 12/24/2018 15:19:27 [facility] ED Checkout ([facility]) MEDICAL INFORMATION Allergy Info: No Known Allergies PATIENT EDUCATION INFORMATION Instructions: Skin Yeast Infection Follow up: With: Address: When: Follow up with primary care provider Within As needed With: Address: When: Return to Emergency Department Within As needed DIAGNOSIS Electronically signed by Zuleyka Byrd Conversion Precision Lens Grinder Apprentice Cerner at 10/19/2022 11:23 AM CDT documented in this encounter Plan of Treatment Not on file documented as of this encounter Visit Diagnoses Not on filedocumented in this encounter
== END 2025-04-17 23:59 | disposition home or self-care (01) ==
PROVIDERS: PCP Nurse Practitioner; Visit Provider Nurse Practitioner Obstetrics & Gynecology
DX: Z01.810 Encounter for preprocedural cardiovascular examination (principal); Z01.812 Encounter for preprocedural laboratory examination; N39.0 Urinary tract infection, site not specified
CPT/HCPCS: 80053; 84703; 85025; 87086; 87088; 93005

== ENCOUNTER 2025-04-24 06:02 | Day surgery (SDC) | payer MEDICAID, SELFPAY ==
--- NOTE | 2025-04-17 12:45 | SUR.PREOP ---
Instructed pt to hold Ozempic until after procedure and clear liquids 24 hours prior to procedure as directed per anesthesia guidelines.
[2025-04-17 12:48] VITALS: BMI 18.8
[2025-04-24] VITALS (9 sets, daily range): BP systolic 99–125; BP diastolic 62–82; PULSE 68–90; RESP 16–18; TEMP 36.1–36.4; O2SAT 96–100; BMI 18.8
--- NOTE | 2025-04-24 06:59 | EXP.ANES.CKL ---
[facility] Disclaimer: The information contained in this section may have been updated after the patient was seen, as this information can be updated by other users. 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 UTI (urinary tract infection) History of drug abuse Encounter for pre-operative examination End stage renal disease Hypertension Seasonal allergies Diabetes type 1, uncontrolled Surgical History History of surgery History of biopsy of kidney Renal transplant, status post History of D&C History of delivery H/O tubal ligation H/O gastric sleeve Family History Grandmother Cancer Mother Cancer Other Family history of depression Family history of diabetes mellitus Family history of heart disease Social History Smoking Status: Former smoker alcohol intake: former substance use type: former substance user current occupational status: disabled Travel in the last 8 weeks?: None Have you lived/traveled outside US in past 30 days?: No Contact w/someone who lives/traveled outside US past 30 days?: No Exposure to someone with infectious disease in past 14 days?: No Do you have a fever (greater than 100.4 F or 38 C)?: No Have you tested positive for COVID-19?: No Exposed to someone with COVID-19 in past 14 days?: No Do you have a sore throat?: No Do you have a cough?: No Do you have any weakness?: No Are you experiencing any nausea/vomitting?: No Do you have any diarrhea?: No Are you experiencing any unusual bleeding?: No Do you have any muscle aches/pain?: No Do you have any abdominal pain?: No Are you experiencing loss of taste or smell?: No [facility] Anesthesia Checklist Patient Identification Patient Identification: Arm Band and Verbal (Name & ) Structural Data Admitted From: Home Planned Operative Procedure/s: D&C Consent for Planned Operative Procedure(s) Verified: Yes Verified Documents: Surgical Consent and History and Physical NPO Status Verified Time NPO: 00:00 Additional verifications Anesthesia Reactions: No Hx Blood Transfusions: No Blood Transfusion Reaction: No Airway Assessment Mallampati Score:: Class I Dentition: Poor Dentition Neurological Assessment Level of Consciousness: Awake, Alert and Appropriate Anesthesia Plan Anesthesia Risk discussed: Yes Anesthesia Plan: Verified ASA Class: III Anesthesia Type: General
[2025-04-24] MEDS: LACTATED RINGERS 1000ML 1,000 ML 25 ML IV (07:09)
[2025-04-24] MEDS: CEFAZOLIN SODIUM 1GM ADV 1 GM IV (07:42)
[2025-04-24] MEDS: SODIUM CHLORIDE IRRIG SOLUTION 3,000 ML 200 ML IR (07:47)
[2025-04-24] MEDS: 0.9 % SODIUM CHLORIDE 50 ML 100 ML IV (07:57)
--- NOTE | 2025-04-24 08:19 | P.OP_ITS ---
Date of procedure: 04/24/25 Pre-op Diagnosis:: Menorrhagia Post-op Diagnosis:: Menorrhagia Procedure performed:: Hysteroscopy, dilation and curettage, NovaSure ablation. Surgeon:: Osbaldo Zarco MD PSYCHIATRIC SECURITY NURSE:: Grady Rey Anesthesia: LMA Estimated blood loss (mL): 25 Clinical Note:: She is a 34-year-old lady who complains of extremely heavy, painful periods. As result of that she was offered NovaSure ablation. She is not really a candidate for hysterectomy because she has had a previous kidney transplant with placement of the new kidney in the pelvis. Operative findings:: She had an anteverted uterus that sounded to 8 cm. The endometrium appeared lush but otherwise normal. The uterus is normal in shape and size. Operative note:: She was taken to the operating room where LMA anesthesia was found be adequate. She was prepped and draped in the normal sterile fashion in the lithotomy position. A weighted speculum was placed in the vagina and the anterior lip of the cervix was grasped with a tenaculum. The cervix was then dilated to approximately 6 mm. I then inserted a hysteroscope into the uterine cavity and the findings were as previously dictated. I then performed a gentle curettage with a medium curette. I then sounded the uterus and determine the length of the uterus. I then inserted the NovaSure device and determine the width of the endometrial cavity. The endometrial cavity length was 5 cm and the width was 4.3 cm. This was placed into the NovaSure device. I then ran the device through its program. I further inspected the endometrial cavity and was found to be completely charred. I then injected 30 cc of 0.5% ropivacaine at the 3:00, 5:00, 7:00, and 9:00 positions of the cervix. She tolerated procedure well and was taken to the recovery room in excellent condition. All sponge and instrument counts were correct. The estimated blood loss was less than 25 cc. Condition: stable Disposition: PACU Specimens:: Endometrial curettings Complications:: None
--- NOTE | 2025-04-24 08:33 | EXP.ANES.I ---
[facility] Anesthesia Record Part I Anesthesia Record I Intake, IV Amount: 600 Hydration: Adequate Estimated blood loss (mL): 25 Urine output (mL): 30 Blood Pressure: 106/76 SaO2: 96 Pulse Rate: 68 Airway Patency: Patent Respiratory Rate: 16 Temperature: 97.5 F Patient is:: Awake and Stable Stable to PACU at:: 08:10
[2025-04-25 00:44] LABS: POC Glucose,Bedside 101 gm/dL (70-110)
--- NOTE | 2025-04-26 16:39 | P.PNANES_ITS ---
[facility] Anesthesia Record Part II Anesthesia Record Part II Discharge Time: 09:12 Destination: Surgical Day Care (OP Surgery) PACU nurse assessment reviewed?: Yes Patient Condition:: Good Anesthesia Complications:: None Swallowing reflex intact?: Yes Airway Patency: Patent Cyanosis?: No Blood Pressure: 117/72 SaO2: 100 Respiratory Rate: 18 Pulse Rate: 73 Temperature: 97.2 F Mental Status: Alert & Oriented Pain level:: 0 Nausea and/or vomitting:: None Intake, IV Amount: 0 Hydration: Adequate
[2025-04-26 16:40] VITALS: BP 117/72; PULSE 73; RESP 18; TEMP 36.2; O2SAT 100
== END 2025-04-24 09:12 | disposition home or self-care (01) ==
PROVIDERS: PCP Nurse Practitioner; Visit Provider Nurse Practitioner Obstetrics & Gynecology
PROC: 0U5B8ZZ Destruction of Endometrium, Via Natural or Artificial Opening Endoscopic (ICD-10-PCS; CPT 58563; principal; 2025-04-24 07:30)
DX: N92.0 Excessive and frequent menstruation with regular cycle (principal); E10.22 Type 1 diabetes mellitus with diabetic chronic kidney disease; I12.0 Hypertensive chronic kidney disease with stage 5 chronic kidney disease or end stage renal disease; F17.200 Nicotine dependence, unspecified, uncomplicated; N18.6 End stage renal disease; D64.9 Anemia, unspecified; Z79.85 Long-term (current) use of injectable non-insulin antidiabetic drugs; Z88.6 Allergy status to analgesic agent; Z79.4 Long term (current) use of insulin; Z94.0 Kidney transplant status
CPT/HCPCS: 58563; 82962; J0690; J1100; J2003; J2250; J2405; J2704; J2795; J3010; J7120

== ENCOUNTER 2025-04-29 09:31 | Outpatient (CLI) | payer MEDICAID, SELFPAY ==
--- OUTSIDE RECORDS SUMMARY | 2025-03-08 14:15 | XMS_ITS | Encounter Summary ---
Author Organization [facility] Address [address] [place] [address] Care Team Providers Care Head Banquet Waiter/Waitress Name Role Phone Maria A Soria APRN Primary Care Provider [phone]- [phone] Reason for Visit * Reason Comments Nasal Congestion Sore Throat Cough Headache Encounter Details Date Type Department Care Team (Late st Contact Info) Description 03/08/2025 2:15 PM EDT Office Visit [facility] [address] [place] [phone] Maria A Soria APRN [address] [place] [address] Sore throat (Primary Dx); Strep pharyngitis Social History Tobacco Use Types Packs/Day Years [...] Taken Comments Blood Pressure - - Pulse 100 03/08/2025 1:46 PM EDT Temperature 36.8 C (98.2 F) 03/08/2025 1:46 PM EDT Respiratory Rate 16 03/08/2025 1:46 PM EDT Oxygen Saturation 98% 03/08/2025 1:46 PM EDT Inhaled Oxygen Concentration - - Weight 54.9 kg (121 lb) 03/08/2025 1:46 PM EDT Height 162.6 cm (5' 4 ) 03/08/2025 1:46 PM EDT Body Mass Index 20.77 03/08/2025 1:46 PM EDT documented in this encounter Progress Notes * Maria A Soria APRN - 03/15/2025 5:24 PM EDTAssociated Problem(s): Strep pharyngitis Patient testing negative for COVID, flu. Her rapid strep test is negative, however on physical examshe has noted to have pharyngeal erythema, bilateral red beefy tonsils as well as exudate. Her son did test positive for strep last week. Subsequently will treat with cephalexin as directed. We discussed available conservative analgesic measures. Patient advised she will need new toothbrush in 3 to4 days * Maria A Soria APRN - 03/08/2025 2:15 PM EDT Images from the original note were not included. Office Note Name: Crystal Archer : 1990 Chief Complaint Nasal Congestion, Sore Throat, Cough, and Headache Subjective History of Present Illness: Crystal Archer is a 34 y.o. female who presents today for sore throat, right ear pain and headache. Patient states her symptoms started approximately 2 days ago but have worsened upon awakening thismorning. She denies any issues with fever or chills, she has felt pretty fatigued. No further complaints or concern Review of Systems Constitutional: Positive for fever. Negative for chills and fatigue. HENT: Positive for ear pain and sore throat. Respiratory: Negative for cough and shortness of breath. Gastrointestinal: Negative for abdominal pain, constipation, diarrhea, nausea and vomiting. Endocrine: Negative for polydipsia and polyuria. Neurological: Positive for headache. Objective Past 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: Diagnosis Date Allergic Anxiety Arthritis Chronic constipation Depression Diabetes mellitus Excessive thirst H/O mammogram 2014 Headache Hot skin Hyperlipidemia Hypertension Injury of back Leg cramps Pap smear for cervical cancer screening 11/08/2015 Renal disorder Sinusitis Urinary tract infection Past Surgical History: Procedure Laterality Date SECTION 10/17/2012 SECTION GASTRIC SLEEVE LAPAROSCOPIC INDUCED 2006 [facility] History reviewed. No pertinent family history. Vital Signs Pulse 100 Temp 98.2 ??F (36.8 ??C) (Temporal) Resp [...] Vitals reviewed. Constitutional: Appearance: Normal appearance. HENT: Right Ear: Tympanic membrane, ear canal and external ear normal. Left Ear: Tympanic membrane, ear canal and external ear normal. Nose: Nose normal. Mouth/Throat: Pharynx: Oropharyngeal exudate and posterior oropharyngeal erythema present. Eyes: Conjunctiva/sclera: Conjunctivae normal. Cardiovascular: Rate and Rhythm: Normal rate and regular rhythm. Pulses: Normal pulses. Heart sounds: Normal heart sounds. Pulmonary: Effort: Pulmonary effort is normal. Breath sounds: Normal breath sounds. Abdominal: General: Bowel sounds are normal. Palpations: Abdomen is soft. Musculoskeletal: Cervical back: Neck supple. Skin: General: Skin is warm and dry. Neurological: Mental Status: She is alert and oriented to person, place, and time. Psychiatric: Mood and Affect: Mood normal. Behavior: Behavior normal. POCT Results (if applicable): Results for orders placed or performed in visit on 03/08/25 Covid-19 + Flu A&B AG, Veritor Collection Time: 03/08/25 1:57 PM Specimen: Swab Result Value Ref Range SARS Antigen Not Detected Not Detected, Presumptive Negative Influenza A Antigen DANICA Not Detected Not Detected Influenza B Antigen DANICA Not Detected Not Detected Internal Control Passed Passed Lot Number [id number] Expiration Date POC Rapid Strep A Collection Time: 03/08/25 1:57 PM Specimen: Swab Result Value Ref Range Rapid Strep A Screen Negative Negative, VALID, INVALID, Not Performed Internal Control Passed Passed Lot Number [id number] Expiration Date Assessment and Plan Diagnoses and all orders for this visit: 1. Sore throat (Primary) - Covid-19 + Flu A&B AG, Veritor - POC Rapid Strep A 2. Strep pharyngitis Assessment & Plan: Patient testing negative for COVID, flu. Her rapid strep test is negative, however on physical examshe has noted to have pharyngeal erythema, bilateral red beefy tonsils as well as exudate. Her son did test positive for strep last week. Subsequently will treat with cephalexin as directed. We discussed available conservative analgesic measures. Patient advised she will need new toothbrush in 3 to4 days Orders: - cephalexin (KEFLEX) 500 MG capsule; Take 1 capsule by mouth 2 (Two) Times a Day for 7 days. Dispense: 14 capsule; Refill: 0 BMI is within normal parameters. No other follow-up for BMI required. Follow Up Return if symptoms worsen or fail to improve. Maria A Soria APRN documented in this encounter Plan of Treatment Not on file documented as of this encounter Procedures Procedure Name Priority Date/Time Associated Diagnosis Comments COVID-19 + FLU A&B AG, VERITOR Routine 03/08/2025 1:57 PM EDT Sore throat POCT RAPID STREP A Routine 03/08/2025 1: 57 PM EDT Sore throat documented in this encounter Results * POC Rapid Strep A (03/08/2025 1:57 PM EDT) Rapid Strep A Screen Negative Negative, VALID, INVALID, Not Performed [facility] Internal Control Passed Passed [facility] Lot Number [id number] [facility] Expiration Date [facility] Swab 03/08/2025 1:57 PM EDT Maria A Soria APRN POINT OF CARE TEST ORDERABL ES Final Result [facility]
[address] [place] [address], * Covid-19 + Flu A&B AG, Veritor (03/08/2025 1:57 PM EDT) SARS Antigen Not Detected Not Detected, Presumptive Negative Influenza A Antigen DANICA Not Detected Not Detected Influenza B Antigen DANICA Not Detected Not Detected Internal Control Passed Passed Lot Number [id number] Expiration Date Swab 03/08/2025 1:57 PM EDT Maria A Soria APRN POINT OF CARE TEST ORDERABL ES Final Result documented in this encounter Visit Diagnoses Diagnosis Sore throat- Primary Acute pharyngitis Strep pharyngitis documented in this encounter Care Teams Head Banquet Waiter/Waitress Relationship Specialty Start Date End Date Maria A Soria APRN [address] [place], [place] [id number] PCP - General Family Medicine 02/15/23 documented as of this encounter
--- OUTSIDE RECORDS SUMMARY | 2025-04-29 09:36 | XMS_ITS | Encounter Summary ---
Author Organization [employer] ([place], [place], [place], [place]) Address [address] [place] [address] Care Team Providers Care Loading Machine Operator Helper Name Role Phone Unavailable Primary Care Provider Unavailabl e Encounter Details Date Type Department Care Team (Late st Contact Info) Description 01/19/2020 Transcribed Document [facility] [place] Family Medicine [address] [place] [address] ProviderLaury MD [address] [place] [id number] Social History Tobacco Use Types Packs/Day Years [...] Physician Requested for Consult : LARRY MARTINES MD-[facility] Physician Covering for Consult : LARRY MARTINES MD-[facility] Date and Time Call Returned : 01/19/2020 9:04 EDT ASPEN CROWDER - 01/19/2020 9:04 EDT Electronically signed by Rochelle [facility] Conversion Blow Mold Operator Cerner at 11/02/2022 10:05 AM CDT documented in this encounter Plan of Treatment Not on file documented as of this encounter Visit Diagnoses Not on filedocumented in this encounter
--- OUTSIDE RECORDS SUMMARY | 2025-04-29 09:36 | XMS_ITS | Encounter Summary ---
Author Organization [employer] ([place], [place], [place], [place]) Address [address] [place] [address] Care Team Providers Care Beautician Apprentice Name Role Phone Unavailable Primary Care Provider Unavailabl e Encounter Details Date Type Department Care Team (Late st Contact Info) Description 01/19/2020 Transcribed Document [facility] [place] [address] ProviderLaury MD [address] [place] [address] [id number] Social History Tobacco Use Types Packs/Day Years [...] documented in chart. Surgical history: section x2 (91999529). Dilation and curettage (06123137). Tubal ligation ([id number]). wisdom teeth. kidney biopsy. EGD. Stomach biopsy. Gastric sleeve ([id number]).. Family history: Not significant, No family history [...] EDT Height Source Stated Height Entry Format [place] Height/Length, UZBEK (ft) 5 ft Height/Length UZBEK 5 Inch CLINICALHEIGHT 165.1 cm [place] Body Weight 56.59 kg Weight Source, ED Standing scale Weight Entry Format [place] Weight Bangladeshi lb 230.8 lb CLINICALWEIGHT 104.91 kg Body [...] 39.0 % Lymph # 3.92 K/uL HI Crook % 7.3 % Crook # 0.73 K/uL Eos % 2.4 % Eos # 0.24 K/uL Baso % 0.4 % Baso # 0.04 K/uL Slide Review No IG# 0 x10(3)/uL IG% 0 % . Notes: Preliminary ReportNAME:FREDDIE ARCHER / SEX:1990 / FemaleMRN / ACC#:[id number] / [id number] ORDERING PHYSICIAN:Ordering Provider, UpdateEXAM REQUESTED:[id number]--BY ABDOMEN & PELVIS W/O CONTRAST [facility]IOLOGIST NAME:MD Ashely, [facility]:status post gastric sleeve surgery on [...] No rash, no cyanosis, capillary refill brisk BUSINESS DEVELOPMENT AGENT: Awake alert oriented ??4, nonfocal exam Psych: [...]
--- OUTSIDE RECORDS SUMMARY | 2025-04-29 09:36 | XMS_ITS | Encounter Summary ---
Author Organization [employer] ([place], [place], [place]) Address [address] [place] [address] Care Team Providers Care Remote Mortgage Underwriter Name Role Phone Unavailable Primary Care Provider Unavailabl e Encounter Details Date Type Department Care Team (Late st Contact Info) Description 01/19/2020 Transcribed Document [facility] [place] Family Medicine [address] [place] [address] ProviderLaury MD [address] [place] [address] Social History Tobacco Use Types [...] 01/19/2020 15:30 EDT Electronically signed by [facility] Conversion Live Out Nanny Cerner at 11/02/2022 10:02 AM CDT documented in this encounter Plan of Treatment Not on file documented as of this encounter Visit Diagnoses Not on filedocumented in this encounter
--- OUTSIDE RECORDS SUMMARY | 2025-04-29 09:36 | XMS_ITS | Encounter Summary ---
Author Organization [employer] ([place]) Address [address] [place] [address] Care Team Providers Care Lead Electrician Name Role Phone Unavailable Primary Care Provider Unavailabl e Encounter Details Date Type Department Care Team (Late st Contact Info) Description 01/19/2020 Transcribed Document [facility] [place] [address] [place] [address] ProviderLaury MD [address] [place] [address] Social History Tobacco Use Types Packs/Day [...] On: 01/19/2020 8:59 EDT by CRISTOBAL HANSEN RN-Die Designer Readmission Questionnaire Patient Status at Discharge, Previous Admission : Inpatient Did Patient Leave AMA Pre Admission : No Readmission : Unplanned Readmission Reason: : Patient/caregiver decided on their own to come to ED ED Visit Between Hospitalization : No DC Destination, Previous Admission : Discharge To Care Management: Home/Residential/Fdc or Self Care - (01/19/20 08:56:00) If [...] Was Readm Preventable : No CRISTOBAL HANSEN RN-Die Designer - 01/19/2020 8:59 EDT Electronically signed by [facility] Conversion Processing Technologist Cerner at 11/02/2022 9:56 AM CDT documented in this encounter Plan of Treatment Not on file documented as of this encounter Visit Diagnoses Not on filedocumented in this encounter
--- OUTSIDE RECORDS SUMMARY | 2025-04-29 09:36 | XMS_ITS | Encounter Summary ---
Author Organization [facility] Address [address] [place] [address] Care Team Providers Care Green Building Materials Designer Name Role Phone Jaquan Conley MD Primary Care Provider + [phone] Encounter Details Date Type Department Care Team (Late st Contact Info) Description 11/10/2018 [facility] OTTR Encounter Historical OTTR [address] [place] [address] Yris Schwarz, RN CH-TRANSPLANT ADMINISTRATION Social History [...] . She stated she is going to [facility] because they told her she [...] EDT SW received message from [facility] retail performance coach that the pt contacted her to cancel psych appt, as she has decided to pursue listing at [facility], instead of . Note to Coord. and Insulation Extruder Operator for awareness. * Progress Notes - MárquezIndira - 11/09/2018 4:12 PM EDT Mailed 11/24/18 [facility] eval appt schedule w/ map to pt. * Progress Notes - Daisy Gaming LCSW - 11/08/2018 8:09 AM EDT Per [facility] Insulation Extruder Operator, pt has an appt with [facility] on 11/24/18 at 1:30 pm. Note [...] follow. * Progress Notes - Daisy Gaming, RAILWAY SIGNAL OPERATOR - 10/20/2018 9:03 AM EDT has [...] between 9 and 12 due to child care coordinator issues. Forwarding communication to . * Progress [...] However, pt is also considering going to [facility] since she was told they [...] @ 0830. Updated APM, SCM, OTTR, and [place]. Will call pt and mail updated ppw. [...] from pt asking for call back at [phone] to talk about a living donor. Called and spoke w/ pt. States she has several potential living donors and they have questions about the process, testing, and requirements. Informed pt that her potential living donors can call [phone] to discuss this and receive more info, and reminded pt that the potential living donors must call directly to express interest. Pt verbalized understanding. * Progress Notes - Indiar Márquez - 07/25/2018 10:31 AM EST Received k/p txp referral. Called and spoke w/ pt. Verified name and address. Currently not on dialysis. PCP is Fabiola Guzman. Pt scheduled for 08/14/18 ICE @ 0800, 0730 arrival. Mailed ICE packet to pt and cc'd referring MD. [facility] [phone]. documented [...] on filedocumented in this encounter Care Teams Green Building Materials Designer Relationship Specialty Start Date End Date Jaquan Conley MD [address] [place] [address] PCP - General 11/28/20 documented as of this encounter
--- OUTSIDE RECORDS SUMMARY | 2025-04-29 09:36 | XMS_ITS | Encounter Summary ---
Author Organization [employer] ([place], [place], [place], [place]) Address [address] [place] [address] Care Team Providers Care Junior Paralegal Name Role Phone Unavailable Primary Care Provider Unavailabl e Encounter Details Date Type Department Care Team (Late st Contact Info) Description 01/18/2020 Transcribed Document [facility] [place] [address] [place] [address] ProviderLaury MD [address] [place] [address] Social History Tobacco Use Types [...] EDT DCP GENERIC CODE Tracking Group : [facility] Tracking Acuity : 2 [...] Problems(Active) At risk for sleep apnea (IMO :06830849 ) Name of Problem: At risk for sleep apnea ; Recorder: SYSTEM, SYSTEM; Confirmation: Confirmed ; Classification: Medical ; Code: 30547355 ; Last Updated: 08/24/2019 10:25 EST ; Life Cycle Date: 08/24/2019 ; Life Cycle Status: Active ; Vocabulary: IMO DM (diabetes mellitus) (SNOMED CT :635230720 ) Name of Problem: DM (diabetes mellitus) ; Recorder: ANGE Green RN; Confirmation: Confirmed ; Classification: Medical ; Code: 458476602 ; Contributor System: PowerChart ; Last Updated: 08/24/2019 10:17 EST ; Life Cycle Date: 08/24/2019 ; Life Cycle Status: Active ; Vocabulary: SNOMED CT HTN (hypertension) (SNOMED CT :5497691940 ) Name of Problem: HTN (hypertension) ; Recorder: ANGE Green RN; Confirmation: Confirmed ; Classification: Medical ; Code: 2474575924 ; Contributor System: PowerChart ; Last Updated: 08/24/2019 10:16 EST ; Life Cycle Date: 08/24/2019 ; Life Cycle Status: Active ; Vocabulary: SNOMED CT Hyperkalemia (SNOMED CT :00299096 ) Name of Problem: Hyperkalemia ; Recorder: Noelle Umanzor Rn; Confirmation: Confirmed ; Classification: Medical ; Code: 65920931 ; Contributor System: PowerChart ; Last Updated: 10/03/2019 10:52 EDT ; Life Cycle Date: 10/03/2019 ; Life Cycle Status: Active ; Vocabulary: SNOMED CT Hyperlipemia (SNOMED CT :44319339 ) Name of Problem: Hyperlipemia ; Recorder: ANGE Green RN; Confirmation: Confirmed ; Classification: Medical ; Code: 71726205 ; Contributor System: PowerChart ; Last Updated: 08/24/2019 10:17 EST ; Life Cycle Date: 08/24/2019 ; Life Cycle Status: Active ; Vocabulary: SNOMED CT Kidney disease (SNOMED CT :755601555 ) Name of Problem: Kidney disease ; Recorder: ANGE Green RN; Confirmation: Confirmed ; Classification: Medical ; Code: 707272607 ; Contributor System: PowerChart ; Last Updated: 08/24/2019 10:17 EST ; Life Cycle Date: 08/24/2019 ; Life Cycle Status: Active ; Vocabulary: SNOMED CT Neuropathy (SNOMED CT :6594389143 ) Name of Problem: Neuropathy ; Recorder: ANGE Green RN; Confirmation: Confirmed ; Classification: Medical ; Code: 8634842490 ; Contributor System: PowerChart ; Last Updated: 08/24/2019 10:18 EST ; Life Cycle Date: 08/24/2019 ; Life Cycle Status: Active ; Vocabulary: SNOMED CT Retinopathy (SNOMED CT :14324511 ) Name of Problem: Retinopathy ; Recorder: Noelle Umanzor Rn; Confirmation: Confirmed ; Classification: Medical ; Code: 16245928 ; Contributor System: PowerChart ; Last Updated: 10/03/2019 10:52 EDT ; Life Cycle Date: 10/03/2019 ; Life Cycle Status: Active ; Vocabulary: SNOMED CT Diagnoses(Active) Dehydration Date: 01/18/2020 ; Diagnosis Type: Reason For Visit ; Confirmation: Complaint of ; Clinical Dx: Dehydration ; Classification: Medical ; Clinical Service: Emergency medicine ; Code: PNED ; Probability: 0 ; Diagnosis Code: [id number] Vomiting Date: 01/18/2020 ; Diagnosis Type: Reason For Visit ; Confirmation: Complaint of ; Clinical Dx: Vomiting ; Classification: Medical ; Clinical Service: Emergency medicine ; Code: PNED ; Probability: 0 ; Diagnosis Code: [id number] ED Height and Weight Height Source : Stated Height Entry Format : Walsh Height, Feet : 5 ft(Converted to: 152 cm, 60 Inch) Height, Inches : 5 Inch(Converted to: 0 ft 5 Inch, 12.70 cm) Clinical Height : 165.1 cm Weight Source, ED : Standing scale Weight Entry Format : Walsh Weight, Pounds : 230.8 lb Clinical Dosing Weight : 104.91 kg Body Surface Area (BSA) : 2.1 m2 Body Mass Index : 38.5 kg/m2 (HI) [place] Body Weight (IBW) : 56.59 kg MARKIE PANG RN - 01/18/2020 20:31 EDT documented in this encounter Plan of Treatment Not on file documented as of this encounter Visit Diagnoses Not on filedocumented in this encounter
--- OUTSIDE RECORDS SUMMARY | 2025-04-29 09:36 | XMS_ITS | Encounter Summary ---
Author Organization [employer] ([place], [place], [place]) Address [address] [place] [address] Care Team Providers Care Winery Worker Name Role Phone Unavailable Primary Care Provider Unavailabl e Encounter Details Date Type Department Care Team (Late st Contact Info) Description 01/19/2020 Transcribed Document [facility] [place] [address] [place] [address] ProviderLaury MD [address] [place] [address] Social History Tobacco Use Types Packs/Day [...] Obtained From : Patient Primary Language : Montserratian Preferred Communication Mode : Verbal Communication Barrier : None Tank Truck Mechanic Needed : No OCTAVIO BRAND RN - [...] Scale Risk Level : 0-24 Low Risk Chrisney Fall Interventions : Adequate lighting, Bed in [...] Source : Stated Height Entry Format : Early Height, Feet : 5 ft(Converted to: 152 cm, 60 Inch) Height, Inches : 5 Inch(Converted to: 0 ft 5 Inch, 12.70 cm) Clinical Height : 165.1 cm Weight Source : Standing scale Weight Entry Format : Early Clinical Dosing Weight : 104.91 kg Weight, Pounds : 230.8 lb Body Surface Area (BSA) : 2.1 m2 Body Mass Index : 38.5 kg/m2 (HI) [place] Body Weight : 57 kg OCTAVIO BRNAD RN - 01/19/2020 8:36 EDT Infectious Disease [...] OCTAVIO BRAND RN - 01/19/2020 8:36 EDT [place] Suicide Severity Rating Scale (C-SSRS) CSSRS Past [...]
--- OUTSIDE RECORDS SUMMARY | 2025-04-29 09:36 | XMS_ITS | Encounter Summary ---
Author Organization [employer] ([place], [place], [place], [place]) Address [address] [place] [address] Care Team Providers Care Mixed Crop Farmer Name Role Phone Unavailable Primary Care Provider Unavailabl e Encounter Details Date Type Department Care Team (Late st Contact Info) Description 01/19/2020 Transcribed Document [facility] [place] Family Medicine [address] [place] [address] ProviderLaury MD [address] [place] [address] Social History Tobacco Use Types Packs/Day [...]
--- OUTSIDE RECORDS SUMMARY | 2025-04-29 09:36 | XMS_ITS | Encounter Summary ---
Author Organization [employer] ([place], [place], [place], [place]) Address [address] [place] [address] Care Team Providers Care Electronics Engineering Technician Name Role Phone Unavailable Primary Care Provider Unavailabl e Encounter Details Date Type Department Care Team (Late st Contact Info) Description 01/19/2020 Transcribed Document [facility] [place] Family Medicine [address] [place] [address] ProviderLaury MD [address] [place] [address] Social History Tobacco Use Types [...] pharmacies and retail stores. ??? Eat bland, vajk-ch-qoozmr foods in small amounts as you are [...] and water are not available, use hand cardiothoracic icu rn. Make sure that everyone in your household washes their hands frequently. ??? Take ytmj-die-wrvkfvz and prescription medicines only as told by [...] and water are not available, use hand cardiothoracic icu rn. Make sure that everyone in your household [...] 07/30/2016 Document Revised: 12/12/2018 Document Reviewed: 12/12/2018 [employer] Interactive Patient Education ? 2020 [employer] Endocrinology Hypoglycemia Hypoglycemia occurs when the [...] instructions at home: General instructions ??? Take zfhd-gdv-ctyspsx and prescription medicines only as told by [...] 07/04/2006 Document Revised: 12/26/2018 Document Reviewed: 08/06/2016 [employer] Interactive Patient Education ? 2020 [employer]. documented in this encounter Plan of Treatment Not on file documented as of this encounter Visit Diagnoses Not on filedocumented in this encounter
--- OUTSIDE RECORDS SUMMARY | 2025-04-29 09:36 | XMS_ITS | Encounter Summary ---
Author Organization [employer] ([place], [place], [place], [place]) Address [address] [place] [address] Care Team Providers Care Dean Of Admissions Name Role Phone Unavailable Primary Care Provider Unavailabl e Encounter Details Date Type Department Care Team (Late st Contact Info) Description 01/19/2020 Transcribed Document [facility] [place] Family Medicine [address] [place] [address] ProviderLaury MD [address] [place] [address] Social History Tobacco Use Types Packs/Day [...] Laury ProviderMD - 01/19/2020 3:30 PM CDT [address] [address] FREDDIE ARCHER :1990 Visit Time:01/19/2020 Your Visit Summary Your Care Team Admitting Physician - CONSUELO ESTEVEZ MD-LAZARA MEMBRENO MD PHY, UNKNOWN Attending Physician - CONSUELO ESTEVEZ MD-LAZARA MEMBREON MD Primary Care Physician - ERIKA PERSAUD [...] pharmacies and retail stores. ??? Eat bland, eowy-sy-xiycvd foods in small amounts as you are [...] and water are not available, use hand political worker. Make sure that everyone in your household washes their hands frequently. ??? Take kubj-wrx-dwouubq and prescription medicines only as told by [...] and water are not available, use hand political worker. Make sure that everyone in your household [...] 07/30/2016 Document Revised: 12/12/2018 Document Reviewed: 12/12/2018 [employer] Interactive Patient Education ?? 2020 [employer]. Hypoglycemia Hypoglycemia occurs when the level of [...] instructions at home: General instructions ??? Take tubk-ieu-aowvgqp and prescription medicines only as told by [...] 07/04/2006 Document Revised: 12/26/2018 Document Reviewed: 08/06/2016 [employer] Interactive Patient Education ?? 2020 [employer]. Emergency Awareness and Preventative Care STROKE is [...] Assistance with quitting is available by contacting 6-727-HJKD-NOW. This is a free resource providing counseling, [...] range between ( 1.0 and 7.0 ) Humphreys #: 0.73 K/uL -- Normal range between ( 0.24 and 0.82 ) Eos #: 0.24 K/uL -- Normal range between ( 0.04 and 0.54 ) Humphreys %: 7.3 % -- Normal range between [...] ) Urine Bilirubin Dipstick: Negative Urine Specific [place]: 1.012 -- Normal range between ( 1.005 [...] was given the opportunity to ask questions. Patient/Helmet Coverer Name: Patient/Helmet Coverer Signature: Relationship to Patient: Clinician/Hospital Helmet Coverer Signature: Date: Electronically signed by Christopher Byrd Conversion Senior Vice President & General Counsel Keysha at 11/02/2022 10:10 AM CDT documented in this encounter Plan of Treatment Not on file documented as of this encounter Visit Diagnoses Not on filedocumented in this encounter
--- OUTSIDE RECORDS SUMMARY | 2025-04-29 09:36 | XMS_ITS | Encounter Summary ---
Author Organization [facility] Address [address] [place] [address] Care Team Providers Care Business Unit Leader Name Role Phone Jaquan Conley MD Primary Care Provider + [phone] Encounter Details Date Type Department Care Team (Late st Contact Info) Description 10/18/2018 [facility] OT[facility] Committee Historical OTTR [address] [place] [address] Yris Schwarz, RN CH-TRANSPLANT ADMINISTRATION Social History [...] in nephrology clinic note that she left [facility] after admission for increasing creatinine and e. coli UTI, consider starting with social work. She also initially stated didn't want to pursue kidney transplant if she couldn't get a pancreas at same time. * Progress Notes - Hilaria Hsu - 08/16/2018 9:25 AM EST Start eval with ; pt left [facility] per [facility] records. Pt has been 5 times; has 2 children, one of which is in [place] with her latest . documented in this encounter Plan of Treatment Not on file documented as of this encounter Visit Diagnoses Not on filedocumented in this encounter Care Teams Business Unit Leader Relationship Specialty Start Date End Date Jaquan Conley MD [address] [place] [address] PCP - General 11/28/20 documented as of this encounter
--- OUTSIDE RECORDS SUMMARY | 2025-04-29 09:36 | XMS_ITS | Encounter Summary ---
Author Organization [facility] ([place], [place], [place], [place]) Address [address] [place] [address] Care Team Providers Care Entomology Teacher Name Role Phone Unavailable Primary Care Provider Unavailabl e Encounter Details Date Type Department Care Team (Late st Contact Info) Description 01/19/2020 Transcribed Document [facility] [place] [address] [place] [address] ProviderLaury MD [address] [place] [address] Social History Tobacco Use Types Packs/Day [...] - 01/19/2020 16:16 EDT Electronically signed by [facility] Conversion Diesel Locomotive Firer Cerner at 11/02/2022 9:56 AM CDT documented in this encounter Plan of Treatment Not on file documented as of this encounter Visit Diagnoses Not on filedocumented in this encounter
--- OUTSIDE RECORDS SUMMARY | 2025-04-29 09:37 | XMS_ITS | Encounter Summary ---
Author Organization [employer] ([place]) Address [address] [place] [address] Care Team Providers Care Director Custom Name Role Phone Unavailable Primary Care Provider Unavailabl e Encounter Details Date Type Department Care Team (Late st Contact Info) Description 01/04/2020 Transcribed Document [facility] [place] [facility] [place] [address] ProviderLaury MD [address] [place] [address] Social History Tobacco Use Types Packs/Day [...] Laparoscopic sleeve gastrectomy SURGEON: Xavi Mejia M.D. [facility] SPECIALIST: Daniel steinberg MD ANESTHESIA: General. SPECIMEN: Stomach. INDICATION FOR PROCEDURE: is a 29-year-old patient with intermediate history of morbid obesity and CKD, has [...] was done, we proceeded to place the 54-Eritrean bougie down the esophagus into the stomach under direct visualization. When it was in the antrum, we proceeded to staple the stomach in a parallel manner to the greater curvature, creating a sleeve gastrectomy using the Neola stapler. We used green loads, all reinforced [...]
--- OUTSIDE RECORDS SUMMARY | 2025-04-29 09:37 | XMS_ITS | Encounter Summary ---
Author Organization [employer] ([place]) Address [address] [place] [address] Care Team Providers Care Client Portfolio Manager Name Role Phone Unavailable Primary Care Provider Unavailabl e Encounter Details Date Type Department Care Team (Late st Contact Info) Description 10/31/2018 Transcribed Document [facility] [place] Family Medicine [address] [place] [address] ProviderLaury MD [address] [place] [address] Social History Tobacco Use Types Packs/Day [...] Laury ProviderMD - 10/31/2018 1:17 AM CDT [facility] Depart Summary PERSON INFORMATION Name Crystal Archer Age 28 Years 1990 Sex Female Language PCP Marital Status Phone [phone] Visit Id Visit Reason Specialty Enc Type Emergency Med Service Referred by Track Group [facility] Discharge Tracking Id [id number] Checkout 10/30/2018 21:17:02 Checkin 10/30/2018 20:23:00 Acuity 4 - Non-urgent [facility] Dispo Type Arrival 10/30/2018 20:23:00 Reg Status LOS 000 00:54 Address: [address] [place] [address] [place] [address] POWERFORMS PHYSICIAN NOTES VITALS INFORMATION Vital Sign Triage Temp 99 Temp Route Oral/Mouth Pulse Rate 92 Respiratory Rate 22 Blood Pressure 169/ 99 LOCATION INFORMATION Arrival Nurse Unit Room Bed 10/30/2018 20:23:00 [facility] ED Waitroom ([facility]) 10/30/2018 20:35:06 [facility] ED 9 10/30/2018 21:17:02 [facility] ED Checkout ([facility]) MEDICAL INFORMATION Allergy Info: No [...]
--- OUTSIDE RECORDS SUMMARY | 2025-04-29 09:37 | XMS_ITS | Encounter Summary ---
Author Organization [employer] ([place], [place], [place], [place]) Address [address] [place] [address] Care Team Providers Care Robotic Machine Tender Production Name Role Phone Unavailable Primary Care Provider Unavailabl e Encounter Details Date Type Department Care Team (Late st Contact Info) Description 10/31/2018 Transcribed Document [facility] [place] [address] [place] [address] ProviderLaury MD [address] [place] [address] Social History Tobacco Use Types Packs/Day [...] Laury ProviderMD - 10/31/2018 1:17 AM CDT [facility] ADDRESS [place], [place] [phone] Name:Crystal Archer Visit Date:10/30/2018 20:23:00 Emergency Department Care Providers: Physician: MEGHA MAN Physician: Our doctors and staff appreciate your choice of [facility] for your emergency medical care. Read these instructions carefully. Please call us if you have any questions about your medical problem. [facility] Emergency Department [phone] [facility] Emergency Department [phone] [facility] Emergency Department [phone] Patient Education Materials Gianni Crystal Jones has [...] 10/19/2011 Document Revised: 11/11/2016 Document Reviewed: 06/30/2015 [employer] Interactive Patient Education ? 2017 [employer] FOLLOW UP CARE Most conditions that [...] pick them up o [facility] # [phone] o [facility] # [phone] o [facility] # [phone] ?? If you had cultures done and [...] quit. o National Network of Tobacco Cessation JZvbdvofs8-386-MYLO-NOW o [place] [employer] o [place] [employer] [phone] o Sai/Manuel Mccray [phone] FINANCIAL INFORMATION ?? [facility] provides financial counseling to anyone who requests our services. ?? Emergency Physicians are independently contracted to provide your care. You will receive a bill for the care provided to you by the Physician and/or the Physician Delimber Operator. This will be a separate bill [...] recommended Patient Signature / or Patient Senior Systems Architect Provider Signature Date Date/Time 10/30/2018 21:17 Saint [...] Dose Frequency amLODIPine 2.5 mg oral tablet [place] 5 mg-325 mg oral tablet Comment: This [...]
--- OUTSIDE RECORDS SUMMARY | 2025-04-29 09:37 | XMS_ITS | Encounter Summary ---
Author Organization [employer] ([place], [place], [place], [place]) Address [address] [place] [address] Care Team Providers Care Fiberglass Pipe Covering Supervisor Name Role Phone Unavailable Primary Care Provider Unavailabl e Encounter Details Date Type Department Care Team (Late st Contact Info) Description 08/24/2019 Transcribed Document [facility] [place] Family Medicine [address] [place] [address] ProviderLaury MD [address] [place] [address] Social History Tobacco Use Types Packs/Day [...] - Historical ProviderMD - 08/24/2019 11:11 AM SENIOR MANUFACTURING SUPERVISOR [facility] IntraOp Summary Primary Physician: LARRY MARTINES MD-SUR Finalized Date/Time: 08/24/19 12:55:12 Pt. Name: FREDDIE ARCHER FELICIA /Sex: 1990 Female Med Rec #: [id number] Physician: LARRY MARTINES MD-BRANDEE Financial #: [id number] Pt. Type: O Room/Bed: [facility] Admit/Disch: 08/24/19 09:42:00 - Institution: [facility] Endo - Case Attendance Entry 1 Entry 2 Entry 3 Case Attendee LARRY MARTINES Childress, TOBI J, RN LELIOTT MOURA TECH MD-SUR Role Performed Surgeon/Proceduralist, Extension Service Advisor, First Scrub, First First Time In 08/24/19 11:09:00 08/24/19 11:09:00 08/24/19 11:09:00 Time Out 08/24/19 11:15:00 08/24/19 11:15:00 08/24/19 11:15:00 Procedure Gastric Biopsy Esophagogastroduodenosco Esophagogastroduodenosco py, Gastric Biopsy py, Gastric Biopsy Other Attendee Superficial Wound Closed By: Last Modified By: ANGE Green RN Childress, TOBI J, RN Childress, TOBI J, RN 08/24/19 11:14:47 08/24/19 11:14:47 08/24/19 11:14:47 Entry 4 Case Attendee MARGRET MCCULLOUGH CASE MAKER Role Performed CASE MAKER/Nurse Leather Sprayer Time In 08/24/19 11:09:00 Time Out 08/24/19 11:15:00 Procedure Esophagogastroduodenosco py, Gastric Biopsy Other Attendee Superficial Wound Closed By: Last Modified By: ANGE Green RN 08/24/19 11:14:47 [facility] Endo - Case Attendance Audit 08/24/19 11:14:47 Parcel Post Officer: GEOVANNA Modifier: HOLMESTJ 1 <+> Time Out 1 <*> Procedure Gastric Biopsy 2 <+> Time Out 2 <*> Procedure Esophagogastroduodenoscopy, Gastric Biopsy 3 <+> Time Out 3 <*> Procedure Esophagogastroduodenoscopy, Gastric Biopsy 4 <+> Time Out 4 <*> Procedure Esophagogastroduodenoscopy, Gastric Biopsy 08/24/19 11:12:38 Parcel Post Officer: HOLMESTJ Modifier: HOLMESTJ <+> 1 Procedure 2 <*> Procedure Esophagogastroduodenoscopy 3 <*> Procedure Esophagogastroduodenoscopy 4 <*> Procedure Esophagogastroduodenoscopy 08/24/19 11:11:44 Parcel Post Officer: HOLMESTJ Modifier: HOLMESTJ 2 <+> Time In [...] Endo - Case Times Audit 08/24/19 11:13:59 Parcel Post Officer: HOLMESTJ Modifier: HOLMESTJ <+> 1 Out Room Time <+> 1 Stop Time <+> 1 Stop Time 08/24/19 11:11:59 Parcel Post Officer: HOLMESTJ Modifier: HOLMESTJ <+> 1 Start Time [facility] - Cultures and Spec Summary Entry 1 Cultrures and Specimens Specimen Ordered: Yes Last Modified By: ANGE Green RN 08/24/19 11:14:38 [facility] - Delays Entry 1 Delay Reason Other Duration 0 Minute(s) Comment NO DELAY Last Modified By: ANGE Green RN 08/24/19 11:09:48 [facility] - Delays Audit 08/24/19 11:09:48 Parcel Post Officer: JOHNATHANESTJ Modifier: HOLMESTJ <+> 1 Comment [facility] [...] Modified By: ANGE Green RN 08/24/19 11:09:51 [facility] Endo - Fire Risk Assessment Entry 1 Fire Info Surgical Site or 1- Yes Incision Above the Xyphoid Open O2 Source 1- Yes (Mask or Cannula) Available Ignition 1- Yes (ESU, Laser, Light Source) Fire Risk 3 Assessment Score Fire Score Fire Risk Yes Assessment Complete Fire Risk ANGE Green lunch cook Verified By Fire Risk 08/24/19 11:10:00 Assessment Verified Date/Time Fire Risk High Risk Protocol Yes Implemented Standard Fire Yes Safety Precautions Followed Last Modified By: ANGE Green RN 08/24/19 11:10:04 [facility] Endo - General Case Graphotype Operator 1 Case Information OR Endo 01 [facility] Case Level 1 Room Verified Yes Wound Class II - Clean-Contaminated Specialty SN General Anesthesia Type MAC ASA Class 3 Diagnosis Preop Diagnosis GERD Postop Same As Preop No Postop Diagnosis normal EGD Last Modified By: ANGE Green RN 08/24/19 11:11:13 [facility] Endo - General Case Data Audit 08/24/19 11:14:21 Parcel Post Officer: GEOVANNA Modifier: HOLMESTJ <+> 1 Postop Diagnosis [facility] Endo - Intraoperative Assessment [...] Endo - Intraoperative Assessment Audit 08/24/19 12:55:06 Parcel Post Officer: JOHNATHANESTJ Modifier: HOLMESTJ <+> 1 Prosthetic/Assistive Devices [facility] Endo - Intraoperative Equipment [...] Endo - Patient Positioning Audit 08/24/19 11:12:40 Parcel Post Officer: GEOVANNA Modifier: HOLMESTJ 1 <*> Procedure Esophagogastroduodenoscopy [...] Endo - Sign Out Audit 08/24/19 11:14:13 Parcel Post Officer: GEOVANNA Modifier: HOLMESTJ <+> 1 RN Sign Out Signature Date/Time <+> 1 Urinary Catheter Documented in IView [facility] Endo - Surgical Procedures [...] ANGE Green RN 08/24/19 11:12:34 08/24/19 11:12:34 [facility] Endo - Surgical Procedures Audit 08/24/19 11:14:04 Parcel Post Officer: GEOVANNA Modifier: HOLMMARCIA <+> 1 Stop <+> 2 Stop [facility] Endo - Time Out [...] Modified By: ANGE Green RN 08/24/19 11:12:41 [facility] Endo - Time Out Audit 08/24/19 11:12:41 Parcel Post Officer: GEOVANNA Modifier: HOLMESTJ 1 <*> Procedure to be Performed Esophagogastroduodenoscopy 08/24/19 11:12:26 Parcel Post Officer: JOHNATHANESTGiacomo Modifier: HOLMESTJ 1 <*> Beta Renae [...] GEOVANNA Correct Documentation Electronically signed by Rochelle [facility] Conversion Poultry Debeaker Cerner at 11/02/2022 10:11 AM CDT documented in this encounter Plan of Treatment Not on file documented as of this encounter Visit Diagnoses Not on filedocumented in this encounter
--- OUTSIDE RECORDS SUMMARY | 2025-04-29 09:37 | XMS_ITS | Encounter Summary ---
Author Organization [employer] ([place], [place], [place], [place]) Address [address] [place] [address] Care Team Providers Care Sanitarian Name Role Phone Unavailable Primary Care Provider Unavailabl e Encounter Details Date Type Department Care Team (Late st Contact Info) Description 09/26/2018 Transcribed Document [facility] [place] [address] [place] [address] ProviderLaury MD [address] [place] [address] Social History Tobacco Use Types Packs/Day [...] Laury ProviderMD - 09/26/2018 10:56 PM CDT [facility] ADDRESS [place], [place] [phone] Name:Crystal Archer Visit Date:09/26/2018 16:44:00 Emergency Department Care Providers: Physician: INDIO PEREA Physician: Our doctors and staff appreciate your choice of [facility] for your emergency medical care. Read these instructions carefully. Please call us if you have any questions about your medical problem. [facility] Emergency Department [phone] [facility] Emergency Department [phone] [facility] Emergency Department [phone] Patient Education Materials Crystal Archer Karen has [...] 07/04/2006 Document Revised: 12/09/2016 Document Reviewed: 03/04/2014 [employer] Interactive Patient Education ? 2017 [employer]. FOLLOW UP CARE Most conditions that [...] x-ray department to pick them up o [facility] # [phone] o [facility] # [phone] o [facility] # [phone] ?? If you had cultures done and [...] quit. o National Network of Tobacco Cessation WVrmlilel5-018-TPKS-NOW o [place] Lung [employer] o [place] Heart Association [phone] o Sai/Manuel Mccray [phone] FINANCIAL INFORMATION ?? [facility] provides financial counseling to anyone who requests our services. ?? Emergency Physicians are independently contracted to provide your care. You will receive a bill for the care provided to you by the Physician and/or the Physician Director Metabolism. This will be a separate bill from [...] as recommended Patient Signature / or Patient Data Technical Lead Provider Signature Date Date/Time 09/26/2018 18:56 Saint [...] oral tablet loratadine 10 mg oral capsule [place] 5 mg-325 mg oral tablet sodium bicarbonate [...]
--- OUTSIDE RECORDS SUMMARY | 2025-04-29 09:37 | XMS_ITS | Encounter Summary ---
Author Organization [employer] ([place], [place], [place], [place]) Address [address] [place] [address] Care Team Providers Care Rough Rib Grader Name Role Phone Unavailable Primary Care Provider Unavailabl e Encounter Details Date Type Department Care Team (Late st Contact Info) Description 10/31/2018 Transcribed Document [facility] [place] Family Medicine [address] [place] [address] ProviderLaury MD [address] [place] [address] Social History Tobacco Use Types Packs/Day [...] Laury ProviderMD - 10/31/2018 1:17 AM CDT [facility] ADDRESS [place], [place] [phone] Name:Crystal Archer Visit Date:10/30/2018 20:23:00 Emergency Department Care Providers: Physician: MEGHA MAN Physician: Our doctors and staff appreciate your choice of [facility] for your emergency medical care. Read these instructions carefully. Please call us if you have any questions about your medical problem. [facility] Emergency Department [phone] [facility] Emergency Department [phone] [facility] Emergency Department [phone] Patient Education Materials Gianni Crystal Jones has [...] 10/19/2011 Document Revised: 11/11/2016 Document Reviewed: 06/30/2015 Else[employer] Interactive Patient Education ? 2017 [employer] FOLLOW UP CARE Most conditions that [...] them up o [facility] # [phone] o [facility] # [phone] o [facility] # [phone] ?? If you had cultures done and [...] quit. o National Network of Tobacco Cessation KDmilkgvy7-022-CJEI-NOW o [place] [employer] o [place] Heart [employer] [phone] o Sai/Manuel Mccray [phone] FINANCIAL INFORMATION ?? [facility] provides financial counseling to anyone who requests our services. ?? Emergency Physicians are independently contracted to provide your care. You will receive a bill for the care provided to you by the Physician and/or the Physician Programmer Or Analyst. This will be a separate bill [...] as recommended Patient Signature / or Patient Bladder Cleaner Provider Signature Date documented in this encounter Plan of Treatment Not on file documented as of this encounter Visit Diagnoses Not on filedocumented in this encounter
--- OUTSIDE RECORDS SUMMARY | 2025-04-29 09:37 | XMS_ITS | Encounter Summary ---
Author Organization [employer] ([place], [place], [place], [place]) Address [address] [place] [address] Care Team Providers Care Camp Assistant Name Role Phone Unavailable Primary Care Provider Unavailabl e Encounter Details Date Type Department Care Team (Late st Contact Info) Description 12/28/2019 Transcribed Document [facility] [place] Family Medicine [address] [place] [address] ProviderLaury MD [address] [place] [address] Social History Tobacco Use Types Packs/Day [...] Policy Numbers : Insurance 1 Health Plan: [facility] Policy Number: [id number] Authorization Number: Insurance Primary Name : [facility] Policy Number: [id number] Authorization Status-Primary : Admit approved Reference Number-Primary : [id number] Authorization Number-Primary : [id number] Number of Days Authorized-Primary : 0 Day(s) [...]
--- OUTSIDE RECORDS SUMMARY | 2025-04-29 09:37 | XMS_ITS | Encounter Summary ---
Author Organization [employer] ([place], [place], [place], [place]) Address [address] [place] [address] Care Team Providers Care Dental Mold Maker Name Role Phone Unavailable Primary Care Provider Unavailabl e Encounter Details Date Type Department Care Team (Late st Contact Info) Description 01/04/2020 Transcribed Document [facility] [place] [address] [place] [address] ProviderLaury MD [address] [place] [address] Social History Tobacco Use Types Packs/Day [...] Health Plan: [facility] Policy Number: [id number] Authorization Number: [id number] Insurance Primary Name : [facility] Policy Number: [id number] Authorization Status-Primary : Admit approved Reference Number-Primary : [id number] Authorization Number-Primary : [id number] Number of Days Authorized-Primary : 0 Day(s) [...]
--- OUTSIDE RECORDS SUMMARY | 2025-04-29 09:37 | XMS_ITS | Encounter Summary ---
Author Organization [employer] ([place]) Address [address] [place] [address] Care Team Providers Care Inspection Clerk Name Role Phone Unavailable Primary Care Provider Unavailabl e Encounter Details Date Type Department Care Team (Late st Contact Info) Description 11/19/[address] [facility] [place] Medicine [address] [place] [address] ProviderLaury MD [address] [place] [address] Social History Tobacco Use Types Packs/Day [...] Laury ProviderMD - 11/19/2018 1:52 AM CDT [facility] Emergency Department Depart Summary PERSON INFORMATION Name Crystal Archer Age 28 Years 1990 Sex Female Language PCP Marital Status Phone [id number] Visit Id Visit Reason Specialty Enc Type Emergency Med Service [facility] [id number] Checkout 11/18/2018 21:52:54 Checkin 11/18/2018 20:06:00 Acuity 4 - Non-urgent [facility] Dispo Type Arrival 11/18/2018 20:06:00 Reg Status LOS 000 01:46 Address: [address] [place], [place] [address]T [place] [address] POWERFORMS PHYSICIAN NOTES VITALS INFORMATION Vital Sign Triage Temp 99.0 Temp Route Oral/Mouth Pulse Rate 107 Respiratory Rate 18 Blood Pressure 147/ 87 LOCATION INFORMATION Arrival Nurse Unit Room Bed 11/18/2018 20:06:00 [facility] ED Waitroom ([facility]) 11/18/2018 20:10:40 [facility] ED 8 11/18/2018 21:33:06 [facility] ED STA-3 11/18/2018 21:52:54 [facility] ED Checkout ([facility]) MEDICAL INFORMATION Allergy Info: No Known Allergies PATIENT EDUCATION INFORMATION Instructions: Urinary Tract Infection, Adult, Vpjh-ee-Lllx; Otitis Media, Adult, Nmbw-us-Romg Follow up: With: Address: When: Follow up with primary care provider Within 1-2 days With: Address: When: Return to Emergency Department Within As needed DIAGNOSIS documented in this encounter Plan of Treatment Not on file documented as of this encounter Visit Diagnoses Not on filedocumented in this encounter
--- OUTSIDE RECORDS SUMMARY | 2025-04-29 09:37 | XMS_ITS | Encounter Summary ---
Author Organization [employer] ([place], [place], [place], [place]) Address [address] [place] [address] Care Team Providers Care Clinical Pharmacologist Name Role Phone Unavailable Primary Care Provider Unavailabl e Encounter Details Date Type Department Care Team (Late st Contact Info) Description 01/07/2020 Transcribed Document [facility] [place] [address] [place] [address] ProviderLaury MD [address] [place] [address] Social History Tobacco Use Types Packs/Day [...] for Hospitalization is a 29-year-old patient with jail history of morbid obesity and CKD, has [...] Int Units = 1 Cap, Oral, Weekly [place] 7.5/325 oral every 6 hours as needed for pain. Zofran 8mg oral every 12 hours as needed for nausea. Prilosec 20mg oral daily. Starts tomorrow. [2] Code Status No Code Status Order on Record Condition on Discharge Stable Consulting Physicians LARRY JAIMES MD-ANS Current Diet Order No qualifying data available. Patient Discharge Summary Orders Discharge Follow Up Instructions: followup next weekCall for [id number] Follow Up Instructions: call office on tuesday [...]
--- OUTSIDE RECORDS SUMMARY | 2025-04-29 09:37 | XMS_ITS | Encounter Summary ---
Author Organization [employer] ([place], [place], [place], [place]) Address [address] [place] [address] Care Team Providers Care Bridge Attacher Name Role Phone Unavailable Primary Care Provider Unavailabl e Encounter Details Date Type Department Care Team (Late st Contact Info) Description 01/05/2020 Transcribed Document [facility] [place] [address] [place] [address] ProviderLaury MD [address] [place] [address] Social History Tobacco Use Types Packs/Day [...]
--- OUTSIDE RECORDS SUMMARY | 2025-04-29 09:37 | XMS_ITS | Encounter Summary ---
Author Organization [facility] Address [address] [place] [address] Care Team Providers Care Intelligence Officer Basic Name Role Phone Maria A Soria APRN Primary Care Provider [phone] Encounter Details Date Type Department Care Team [...] documented as of this encounter Care Teams Intelligence Officer Basic Relationship Specialty Start Date End Date Maria A Soria APRN [address] [place] [address] PCP - General Family Medicine 02/15/23 documented as of this encounter
--- OUTSIDE RECORDS SUMMARY | 2025-04-29 09:37 | XMS_ITS | Encounter Summary ---
Author Organization [facility] Address [address] 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
--- OUTSIDE RECORDS SUMMARY | 2025-04-29 09:37 | XMS_ITS | Encounter Summary ---
Author Organization [employer] ([place], [place], [place], [place]) Address [address] [place] [address] Care Team Providers Care Cutch Cleaner Name Role Phone Unavailable Primary Care Provider Unavailabl e Encounter Details Date Type Department Care Team (Late st Contact Info) Description 01/05/2020 Transcribed Document [facility] [place] [address] [place] [address] ProviderLaury MD [address] [place] [address] Social History Tobacco Use Types [...] 01/05/2020 7:38 EDT Electronically signed by Interface, [facility] Conversion Picked Edge Sewing Machine Operator Cerner at 11/02/2022 10:09 AM CDT documented in this encounter Plan of Treatment Not on file documented as of this encounter Visit Diagnoses Not on filedocumented in this encounter
--- OUTSIDE RECORDS SUMMARY | 2025-04-29 09:37 | XMS_ITS | Encounter Summary ---
Author Organization [employer] ([place], [place], [place], [place]) Address [address] [place] [address] Care Team Providers Care Timber Framer Name Role Phone Unavailable Primary Care Provider Unavailabl e Encounter Details Date Type Department Care Team (Late st Contact Info) Description 01/18/2020 Transcribed Document [facility] [place] Family Medicine [address] [place] [address] ProviderLaury MD [address] [place] [address] Social History Tobacco Use Types [...] Laury ProviderMD - 01/18/2020 8:28 PM CDT [place] Suicide Severity Rating Scale (C-SSRS) Entered On: 01/18/2020 21:29 EDT Performed On: 01/18/2020 21:29 EDT by JASON FUENTES RN [place] Suicide Severity Rating Scale (C-SSRS) CSSRS Past [...]
--- OUTSIDE RECORDS SUMMARY | 2025-04-29 09:37 | XMS_ITS | Encounter Summary ---
Author Organization [facility] Address [address] [place] [address] Care Team Providers Care Business Liaison Officer Name Role Phone Jaquan Conley MD Primary Care Provider + [phone] Reason for Visit * Reason Onset Date Comments Prior-authorization/insurance Verification 03/05 Encounter Details Date Type Department Care Team (Late st Contact Info) Description 03/05/2025 Telephone [facility] Endocrinology [address] [place] [address] Erica Fernández PA [address] [address] Prior-authorization/in surance Verification Social History [...] as of this encounter Care Teams Business Liaison Officer Relationship Specialty Start Date End Date Jaquan Conley MD [address] [place], [place] [id number] PCP - General 11/28/20 documented as of this encounter
--- OUTSIDE RECORDS SUMMARY | 2025-04-29 09:37 | XMS_ITS | Encounter Summary ---
Author Organization [employer] ([place], [place], [place], [place]) Address [address] [place] [address] Care Team Providers Care Lithographic Proofer Apprentice Name Role Phone Unavailable Primary Care Provider Unavailabl e Encounter Details Date Type Department Care Team (Late st Contact Info) Description 09/26/2018 Transcribed Document [facility] [place] [address] [place] [address] ProviderLaury MD [address] [place] [address] Social History Tobacco Use Types Packs/Day [...] ProviderMD - 09/26/2018 10:56 PM CDT [facility] Emergency Department Depart Summary PERSON INFORMATION Name Crystal Archer Age 28 Years 1990 Sex Female Language PCP Marital Status Phone [id number] Visit Id Visit Reason Specialty Enc Type Emergency Med Service [facility] Tr[facility] Id [id number] Checkout 09/26/2018 18:56:15 Checkin 09/26/2018 16:44:00 Acuity 3 - Urgent [facility] Dispo Type Arrival 09/26/2018 16:44:00 Reg Status LOS 000 02:12 Address: [address] [place] [address] [place] [address] POWERFORMS PHYSICIAN NOTES VITALS INFORMATION Vital Sign Triage Temp 98.7 Temp Route Oral/Mouth Pulse Rate 102 Respiratory Rate 20 Blood Pressure 140/ 72 LOCATION INFORMATION Arrival Nurse Unit Room Bed 09/26/2018 16:44:00 [facility] ED Waitroom ([facility]) 09/26/2018 16:50:17 [facility] ED 3 09/26/2018 18:56:15 [facility] ED Checkout ([facility]) MEDICAL INFORMATION Allergy Info: No Known Allergies PATIENT EDUCATION INFORMATION Instructions: Hematuria, Adult Follow up: With: Address: When: Follow up with primary care provider Within 5 to 7 days DIAGNOSIS documented in this encounter Plan of Treatment Not on file documented as of this encounter Visit Diagnoses Not on filedocumented in this encounter
--- OUTSIDE RECORDS SUMMARY | 2025-04-29 09:37 | XMS_ITS | Clinical Summary ---
Author Organization [facility] Address [address] [place] [address] Care Team Providers Care Pre Owned Sales Consultant Name Role Phone Unavailable Primary [...] therelease of HIV test results or diagnoses. [id number] Allergies Active Allergy Reactions Criticality Noted Date [...] - Td or Tdap) 09/28/2033 09/29/2023 Insurance [facility] care Address: [facility] [id number] [place] [id number]
--- OUTSIDE RECORDS SUMMARY | 2025-04-29 09:37 | XMS_ITS | Encounter Summary ---
Author Organization [facility] Address [address] [place] [address] Care Team Providers Care Hydraulic Miner Name Role Phone Jaquan Conley MD Primary Care Provider + [phone] Reason for Visit * Reason Comments Med Change Request Encounter Details Date Type Department Care Team (Late st Contact Info) Description 03/08/2025 Refill [facility] Endocrinology [address] [place] [address] Paz Echeverria MD [address] [address] Type 2 diabetes mellitus with other specified complication, with long-term current use of insulin ([facility]) Social History Tobacco Use Types Packs/Day [...] documented as of this encounter Care Teams Hydraulic Miner Relationship Specialty Start Date End Date Jaquan Conley MD [address] [place] [address] PCP - General 11/28/20 documented as of this encounter
--- OUTSIDE RECORDS SUMMARY | 2025-04-29 09:37 | XMS_ITS | Encounter Summary ---
Author Organization [employer] ([place], [place], [place]) Address [address] [place] [address] Care Team Providers Care Social Media Community Manager Name Role Phone Unavailable Primary Care Provider Unavailabl e Encounter Details Date Type Department Care Team (Late st Contact Info) Description 11/19/2018 Transcribed Document [facility] [place] [address] [place] [address] ProviderLaury MD [address] [place] [address] Social History Tobacco Use Types Packs/Day [...] : No GI 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 : No General Matcher Hx : No Heart Attack : No [...] Preferred Communication Mode : Verbal Languages : Turkmen Child/Parent Domestic Concerns : None Threats of Suicide : No Marry Ercikson 11/18/2018 20:14 EDT Height and Weight Height Source : Stated Height Entry Format : [place] Height, Inches : 65 Inch(Converted to: 5 ft 5 Inch, 165.10 cm) Clinical Height : 165.1 cm Weight Source : Bed scale Weight Entry Format : [place] Weight, Pounds : 220 lb Clinical Dosing Weight : 100 kg Body Surface Area-(BSA) : 2.14 m2 Body Mass Index : 36.7 kg/m2 (HI) [place] Body Weight : 57 kg Marry Erickson [...]
--- OUTSIDE RECORDS SUMMARY | 2025-04-29 09:37 | XMS_ITS | Encounter Summary ---
Author Organization [employer] ([place]) Address [address] [place] [address] Care Team Providers Care Ep Specialist Name Role Phone Unavailable Primary Care Provider Unavailabl e Encounter Details Date Type Department Care Team (Late st Contact Info) Description 01/05/2020 Transcribed Document [facility] [place] Medicine [address] [place] [address] ProviderLaury MD [address] [place] [address] Social History Tobacco Use Types [...] your book, please call the Center at [phone]. documented in this encounter Plan of Treatment Not on file documented as of this encounter Visit Diagnoses Not on filedocumented in this encounter
--- OUTSIDE RECORDS SUMMARY | 2025-04-29 09:37 | XMS_ITS | Encounter Summary ---
Author Organization [employer] ([place]) Address [address] [place] [address] Care Team Providers Care Fence Installer Name Role Phone Unavailable Primary Care Provider Unavailabl e Encounter Details Date Type Department Care Team (Late st Contact Info) Description 01/04/2020 Transcribed Document [facility] [place] Family Medicine [address] [place] [address] ProviderLaury MD [address] [place] [address] Social History Tobacco Use Types [...] EDT Electronically signed by Christopher Byrd Conversion Associate Professor Of Counseling Cerner at 11/02/2022 10:03 AM CDT documented in this encounter Plan of Treatment Not on file documented as of this encounter Visit Diagnoses Not on filedocumented in this encounter
--- OUTSIDE RECORDS SUMMARY | 2025-04-29 09:37 | XMS_ITS | Encounter Summary ---
Author Organization [employer] ([place]) Address [address] [place] [address] Care Team Providers Care Sawmill Manager Name Role Phone Unavailable Primary Care Provider Unavailabl e Encounter Details Date Type Department Care Team (Late st Contact Info) Description 01/04/2020 Transcribed Document [facility] [place] [address] [place] [address] ProviderLaury MD [address] [place] [address] Social History Tobacco Use Types Packs/Day [...]
--- OUTSIDE RECORDS SUMMARY | 2025-04-29 09:37 | XMS_ITS | Clinical Summary ---
Author Organization [facility] Address [address] [place] [address] Care Team Providers Care Rigger Supervisor Name Role Phone Jaquan Conley MD Primary Care Provider + [phone] Allergies Active Allergy Reactions Criticality Noted Date [...] Syringe U/F 31G X 5/16 0.5 ML miscIndications: Type 1 diabetes mellitus with other specified complication Use as instructed to inject insulin 4+ times daily in event of pump failure 100 each 3 3 Active acetone, urine, test stripIndications :Type 2 diabetes mellitus with other specified complication, [...] Active insulin aspart (NovoLOG) 100 UNIT/ML injection vialIndications: Type 2 diabetes mellitus with other specified complication, with long-term current use of insulin To be used in insulin pump. MDD 75u 70 mL 1 5 Active Lancets misc Use 3 times/day 200 each 2 5 Active Blood Glucose Monitoring Suppl (Blood Glucose Monitor System) w/Device kit USE TO CHECK GLUCOSE THREE TIMES DAILY 1 kit 5 Active glucose blood test strip USE 1 STRIP TO CHECK GLUCOSE THREE TIMES DAILY 100 each 5 5 Active Semaglutide, 1 MG/DOSE, (Ozempic, 1 MG/DOSE,) 4 MG/3ML solution pen-injectorIndi cations:Type 2 diabetes mellitus with other specified complication, with long-term current use of insulin Inject 1 mg under the skin 1 (one) time per week. 3 mL 5 5 04/20/20 25 Active Problems Problem Noted Date Diagnosed [...] Type Department Care Team Description 03/08/2025 Refill [facility] Endocrinology [address] [place] [address] Paz Echeverria MD Type 2 diabetes mellitus with other specified complication, with long-term current use of insulin ([facility]) 03/05/2025 Refill [facility] Endocrinology [address] [place] [address] Marilyn Valencia, ANJU Type 2 diabetes mellitus with other specified complication, with long-term current use of insulin ([facility]) 03/05/2025 Telephone [facility] Endocrinology [address] [place] [address] Erica Ventura PA Prior-authorization/ins urance Verification from [...] [facility]-HIV Screening 1989 [facility]-/Child/Adol SDOH Screenings 1989 [id number] Vaccine (#1) 1994 Diabetes: Dental Exam 1999 [...] complication, with long-term current use of insulin ([facility]) CYTO DATA CONVERSION Routine 10/29/2014 12:00 AM EDT from Last 3 Months or Most Recently Relevant to Health Maintenance Results * (ABNORMAL) POCT glycosylated hemoglobin (Hb A1C) (05/23/2024 11:03 AM EST) POCT Hemoglobin A1C 5.8 <5.7% Non-Diabe tic % [facility] Kit Lot Number [id number] [facility] Kit Expiration Date 03/17/2026 HEALTHCARE LAB Blood Venous blood specimen / Unknown 05/23/2024 11:03 AM EST Erica MENDEZ POINT OF CARE TEST EN TER/EDIT ORDERABLES Final Result [facility] [address] [place] [address] * Cytology (10/29/2014 12:00 AM EDT) 10/29/2014 10/31/2014 12: 33 PM EDT Narrative [facility] - 11/06/2014 11:15 AM EDT [facility] MR #: [id number] [facility] [address] [place] [address] 1990 (Age: 24) FW Collect Date: 10/29/2014 00:00 Receipt Date: 10/31/2014 12:33 Page 1 DEPARTMENT OF PATHOLOGY AND LABORATORY MEDICINE CYTOPATHOLOGY REPORT Email: [email or web address] ATTENDING MD/Practitioner: John Celestin APRN Service: [facility] Location: OUTS Reported: 11/06/2014 11:15 Collected: 10/29/2014 00:00 INTERPRETATION A. THIN PREP (CERVICAL/VAGINAL): NEGATIVE FOR INTRAEPITHELIAL LESION OR MALIGNANCY. SATISFACTORY FOR EVALUATION; ENDOCERVICAL/ TRANSFORMATION ZONE COMPONENT PRESENT. Slide scanned and imaged by [employer] ThinPrep Imaging System with manual review of [...] results is suggested (please call Microbiology at [phone] for results). CLINICAL INFORMATION: Menstrual History: Cyclic Date of Last Menstrual Period: 10/03/14 Other Clinical Conditions: If ASCUS and > 24 years of age, HPV/DNA testing requested. SPECIMEN DESCRIPTION: A: THIN PREP (CERVICAL/VAGINAL) THIN PREP PROCESS CELLULAR ENHANCEMENT ICD: F: A; RT IMAGE [id number] SNOMED CODES: A; [id number] In cases where a pathologist has signed out the report, the service has been rendered in part by a resident. The signing pathologist has performed and is responsible for the reported pathologic evaluation. us Historical Provider LAB PATHOLOGY ORDERABLES Fin al Result [facility] from Last 3 Months or Most Recently Relevant to Health Maintenance Insurance [facility] MEDICAID Care Teams Rigger Supervisor Relationship Specialty Start Date End Date Jaquan Conley MD [address] [place] [address] PCP - General 11/28/20
--- OUTSIDE RECORDS SUMMARY | 2025-04-29 09:37 | XMS_ITS | Encounter Summary ---
Author Organization [employer] ([place]) Address [address] [place] [address] Care Team Providers Care Hospital Nurse Liaison Name Role Phone Unavailable Primary Care Provider Unavailabl e Encounter Details Date Type Department Care Team (Late st Contact Info) Description 01/18/2020 Transcribed Document [facility] [place] Family Medicine [address] [place] [address] ProviderLaury MD [address] [place] [address] Social History Tobacco Use Types [...] Communication Barrier : None Primary Language : Italian Any Spiritual/Cultural Needs or Requests : No [...]
--- OUTSIDE RECORDS SUMMARY | 2025-04-29 09:37 | XMS_ITS | Encounter Summary ---
Author Organization [employer] ([place]) Address [address] [place] [address] Care Team Providers Care Research Advisor Name Role Phone Unavailable Primary Care Provider Unavailabl e Encounter Details Date Type Department Care Team (Late st Contact Info) Description 10/31/2018 Transcribed Document [facility] [place] [address] [place] [address] ProviderLaury MD [address] [place] [address] Social History Tobacco Use Types Packs/Day [...] Complaint Primary Care Provider : Rema Ferreira, Pipe Threader Accompanied By : Family/Spouse/SO Arrival Mode : [...] : No GI 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 : No Developmental Mathematics Instructor Hx : No Heart Attack : No [...] Source : Stated Height Entry Format : [place] Height, Inches : 65 Inch(Converted to: 5 ft 5 Inch, 165.10 cm) Clinical Height : 165.1 cm Weight Source : Stated Type of Weight Measurement Est : [place] Weight, est lb : 214 lb Estimated Clinical Dosing Weight : 97.27 kg [place] Body Weight : 57 kg Body Surface [...] ; Status: Processing ; Ordered As Mnemonic: [place] 5 mg-325 mg oral tablet ; Simple [...]
--- OUTSIDE RECORDS SUMMARY | 2025-04-29 09:37 | XMS_ITS | Encounter Summary ---
Author Organization [facility] Address [address] 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
--- OUTSIDE RECORDS SUMMARY | 2025-04-29 09:37 | XMS_ITS | Encounter Summary ---
Author Organization [employer] ([place]) Address [address] [place] [address] Care Team Providers Care Artificial Breeding Ranch Supervisor Name Role Phone Unavailable Primary Care Provider Unavailabl e Encounter Details Date Type Department Care Team (Late st Contact Info) Description 11/19/2018 Transcribed Document [facility] Family Medicine [address] [place] [address] ProviderLaury MD [address] [place] [address] Social History Tobacco Use Types Packs/Day [...] Laury ProviderMD - 11/19/2018 1:52 AM CDT [facility] ADDRESS [place], [place] [phone] Name:Crystal Archer Visit Date:11/18/2018 20:06:00 Emergency Department Care Providers: Physician: Clara Elias Phys Asst Physician: Our doctors and staff appreciate your choice of [facility] for your emergency medical care. Read these instructions carefully. Please call us if you have any questions about your medical problem. [facility] Emergency Department [phone] [facility] Emergency Department [phone] [facility] Emergency Department [phone] Patient Education Materials Gianni Crystal Jones has [...] start to feel better. ??? Only take htll-bmd-dadtgwt or prescription medicines for pain, discomfort, or [...] 01/29/2014 Elsevier Interactive Patient Education ? 2017 [employer] Obstetrics and Gynecology Urinary Tract Infection, Adult Introduction A urinary tract infection (UTI) is an infection of any part of the urinary tract. The urinary tract includes the: ??? Kidneys. ??? Ureters. ??? Bladder. ??? Urethra. These organs make, store, and get rid of pee (urine) in the body. Follow these instructions at home: ??? Take opbj-cac-ulgwntv and prescription medicines only as told by [...] to pick them up o [facility] # [phone] o [facility] # [phone] o [facility] # [phone] ?? If you had cultures done and [...] quit. o National Network of Tobacco Cessation TXeecgjww1-851-CYFP-NOW o [place] [employer] o [place] [employer] 1-142427-4397 o Sai/Manuel Mccray [phone] FINANCIAL INFORMATION ?? [facility] provides financial counseling to anyone who requests our services. ?? Emergency Physicians are independently contracted to provide your care. You will receive a bill for the care provided to you by the Physician and/or the Physician Meat Grinder. This will be a separate bill from [...] Patient Education Materials: ENT Otitis Media, Adult, Uizw-zi-Udwy Obstetrics and Gynecology Urinary Tract Infection, Adult, Pmdv-jn-Okuo Follow-Up Instructions: Follow Up With: Where: When: [...] as recommended Patient Signature / or Patient 2 Year Olds Preschool Teacher Provider Signature Date documented in this encounter Plan of Treatment Not on file documented as of this encounter Visit Diagnoses Not on filedocumented in this encounter
--- OUTSIDE RECORDS SUMMARY | 2025-04-29 09:37 | XMS_ITS | Encounter Summary ---
Author Organization [facility] Address [address] [place] [address] Care Team Providers Care Ore Miner Blasting Name Role Phone Jaquan Conley MD Primary Care Provider + [phone] Reason for Visit * Reason Comments Med Refill Encounter Details Date Type Department Care Team (Late st Contact Info) Description 03/05/2025 Refill [facility] Endocrinology [address] [place] [address] Marilyn Valencia L, DRILL PRESS SET UP OPERATOR [address] [facility] [address] [place] [address] Type 2 diabetes mellitus with other specified complication, with long-term current use of insulin ([facility]) Social History Tobacco Use Types Packs/Day Years [...] documented as of this encounter Care Teams Ore Miner Blasting Relationship Specialty Start Date End Date Jaquan Conley MD [address] [place] [address] PCP - General 11/28/20 documented as of this encounter
--- OUTSIDE RECORDS SUMMARY | 2025-04-29 09:37 | XMS_ITS | Encounter Summary ---
Author Organization [employer] ([place] Address [address] [place] [address] Care Team Providers Care Mold Press Operator Name Role Phone Unavailable Primary Care Provider Unavailabl e Encounter Details Date Type Department Care Team (Late st Contact Info) Description 01/04/2020 Transcribed Document [facility] [place] [address] [place] [address] ProviderLaury MD [address] [place] [address] Social History Tobacco Use Types [...]
--- OUTSIDE RECORDS SUMMARY | 2025-04-29 09:37 | XMS_ITS | Encounter Summary ---
Author Organization [employer] ([place]) Address [address] [place] [address] Care Team Providers Care Dog Beautician Name Role Phone Unavailable Primary Care Provider Unavailabl e Encounter Details Date Type Department Care Team (Late st Contact Info) Description 09/28/2019 Transcribed Document [facility] [place] Family Medicine [address] [place] [address] ProviderLaury MD [address] [place] [address] Social History Tobacco Use Types Packs/Day [...] Policy Numbers : Insurance 1 Health Plan: [facility] Policy Number: [id number] Authorization Number: Insurance Primary Name : [facility] Policy Number: [id number] Authorization Status-Primary : Admit approved Reference Number-Primary : [id number] Authorization Number-Primary : [id number] Number of Days Authorized-Primary : 0 Day(s) Authorized Service Begin Date-Primary : 10/11/2019 EDT Authorized Service End Date-Primary : 10/11/2019 EDT Authorization Comments-Primary : [employer] approved per website for 1 day inpt Historical Authorization Comments-Primary : No Authorization Comments Found MANOJ HWANG RN-Utilization Review - 09/28/2019 12:44 EDT Electronically signed by Zuleyka Byrd Conversion Inbound Ingredient Logistics Specialist Cerner at 11/02/2022 10:12 AM CDT documented in this encounter Plan of Treatment Not on file documented as of this encounter Visit Diagnoses Not on filedocumented in this encounter
--- OUTSIDE RECORDS SUMMARY | 2025-04-29 09:37 | XMS_ITS | Clinical Summary ---
Author Organization [facility] Address [address] [place] [address] Care Team Providers Care Outsole Caser Name Role Phone Yang Maria A Doyle APRN Primary Care Provider [phone] Allergies Active Allergy Reactions Criticality Noted Date [...] Daily. Active vitamin D (ERGOCALCIFEROL) 1.25 MG (24971 UT) capsule capsule Take 1 capsule by [...] Followed by Dr. Lynch at [facility]. In review of most recent labs and [...] emptying. Contacted her transplant medical team at [facility] this morning with her symptoms set. [...] Plan (10/04/2024 3:33 PM EDT): Valuated in [facility] for the same approximately 1 month [...] have also requested records from [facility] ED visit which supposedly includes some diagnostic [...] 2023 she received a call from the [facility] that they had a match for [...] daily. Continues to be followed closely by [facility] transplant as well as Dr. Stevens at [facility]. Assessment & Plan (08/22/2024 11:22 AM EST): On December 02, 2023 she received a call from the [facility] that they had a match for [...] daily. Continues to be followed closely by [facility] transplant as well as Dr. Stevens at [facility] locally. Assessment & Plan (06/07/2024 12:35 PM EST): Patient last evaluated in our office a little over 1 year ago in April 2023. At that time she was suffering from end-stage renal disease due to diabetic nephropathy, performing home peritoneal dialysis nightly. On December 02, 2023 she received a call from the [facility] that they had a match for [...] daily. Continues to be followed closely by [facility] transplant as well as Dr. Stevens at [facility] locally. Annual physical exam 03/15/2023 Cervical cancer screening 03/15/2023 Type 2 diabetes mellitus wit h hyperglycemia, with long-term current use of insulin 02/15/2023 Assessment & Plan (02/25/2025 7:41 AM EDT): Patient followed by endocrinology at the [facility]. Patient currently utilizes insulin pump and [...] [facility]. [facility]. Assessment & Plan (02/15/2023 3:01 PM EDT): Etiology of end-stage renal disease appears to be hypertensive nephrosclerosis as well as diabetic Nephropathy. She was a noncompliant type I diabetic for many years, diagnosed at the age of 12. She is currently performing home peritoneal dialysis nocturnally 6 days/week. Working towards renal transplant with [facility]. To pursue transplant services at [facility] as well but finances are making that [...] therapy for quite some time by her dispatcher bus and trolley. Patient has not been on GLP-1 for [...] been started on GLP-1 therapy by her dispatcher bus and trolley and is back down to 157 pounds [...] of 107. She reports she saw her bulb brander who wanted to increase her blood pressure medications but she refused stating she knew she stopped the medications her blood pressure would return to normal. She is now off both BuSpar and venlafaxine with blood pressure 110/74 in office today. Patient feels her mood is stable currently without medications due to some decrease stressors in the home. Her fwzdxl-fz-oqe with whom she help caregive from [place]'s disease, decreasing some of her personal obligations. [...] to that presentation she was evaluated at [facility] with respiratory issues, tested negative for COVID [...] sneezing. She was a originally evaluated at [facility] over 1 week ago with respiratory [...] parasites and C. difficile toxin. 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 02/15/2023 06/07/2024 [...] Description 03/08/2025 2:15 PM EDT Office Visit [facility] [address] [place] [address] URI[place] BROWN [address] Maria A Soria, ANJU Sore throat (Primary Dx); Strep pharyngitis 03/08/2025 Travel 02/26/2025 Telephone [facility] [address] [place] [address] URI[place] BROWN [address] Maria A Soria, ANJU 02/22/2025 10:30 AM EDT Office Visit [facility] [address] [place] [address] [place] [address] Maria A Soria, PLUMBER AND TINNER Type 2 diabetes mellitus with hyperglycemia, with long-term current use of insulin (Primary Dx); Essential hypertension; History of bariatric surgery; History of drug abuse; Mixed hyperlipidemia; Persistent depressive disorder; Pre-operative clearance; Renal transplant recipient 02/22/2025 Travel 02/08/2025 Results Follow-Up [facility] [address] [place] [address] [place] [address] Maria A Soria, ANJU 02/06/2025 10:45 AM EDT Office Visit [facility] [address] [place] [address] [place] [address] Maria A Soria, ANJU Dysuria (Primary Dx) 02/06/2025 Travel 02/04/2025 Refill [facility] [address] [place] [address] [place] [address] Maria A Soria, ANJU 02/03/2025 Refill [facility] [address] [place] [address] [place] [address] Maria A Soria, ANJU from Last 3 [...] A[employer]B AG, Veritor (03/08/2025 1:57 PM EDT) [facility] SARS Antigen Not Detected Not Detected, Presumptive Negative Influenza A Antigen DANICA Not Detected Not Detected Influenza B Antigen DANICA Not Detected Not Detected Internal Control Passed Passed Lot Number [id number] Expiration Date Swab 03/08/2025 1:57 PM EDT Maria A N Yang PLUMBER AND TINNER POINT OF CARE TEST ORDERABL ES Final Result * POC Rapid Strep A (03/08/2025 1:57 PM EDT) [facility] Rapid Strep A Screen Negative Negative, VALID, INVALID, Not Performed [facility] Internal Control Passed Passed [facility] Lot Number [id number] [facility] Expiration Date [facility] Swab 03/08/2025 1:57 PM EDT Maria A Vivek Soria PLUMBER AND TINNER POINT OF CARE TEST ORDERABL ES Final Result Performing Organization Address City/[facility]/ZIP Co de Phone Number [facility]
[address] [place] [address], * POC Glycosylated Hemoglobin (Hb A1C) (02/22/2025 10:26 AM EDT) [facility] Hemoglobin A1C 5.6 4.5 - 5.7 % [facility] Lot Number [id number] [facility] Expiration Date [facility] Blood 02/22/2025 10:2 6 AM EDT Maria A N Yang PLUMBER AND TINNER POINT OF CARE TEST ORDERABL ES Final Result Performing Organization Address City/[facility]/ZIP Co de Phone Number [facility]
[address] [place] [address], * Urine Culture - Urine, Urine, Clean Catch (02/06/2025 10:33 AM EDT) [facility] Urine Culture Final report [facility] Result 1 No growth [facility] Urine Urine specimen obtained by clean catch procedure / Unknown 02/06/2025 10:33 AM EDT 02/06/2025 Comment:Urine Release to [facility] (AMBULATORY) - 02/08/2025 6:06 AM EDT Performed at: 01 - [facility] [address] [place], [place] [id number] Production Clerks Supervisor: Jacob Whaley PhD, Phone: [phone] Maria A Soria APRN MICROBIOLOGY - GENERAL ORDE RABLES Final Result [facility] (AMBULATORY) [address] [place] [address], [place] [phone] [facility] [address] [place] [address], [place] [phone] * Lipid Panel (08/22/2024 9:48 AM EST) Pathologist [facility] Total Cholesterol 117 100 - 199 mg/dL [facility] Triglycerides 140 0 - 149 mg/dL [facility] HDL Cholesterol 40 >39 mg/dL [facility] VLDL Cholesterol Christian 24 5 - 40 mg/dL [facility] LDL Chol Calc (NIH) 53 0 - 99 mg/dL [facility] Blood Structure of left upper limb / Unknown 08/22/2024 9:48 AM EST 08/22/2024 Comment:[facility] - 08/23/2024 9:07 AM EST Performed at: 01 - [facility] [address] [place], [place] [id number] Production Clerks Supervisor: Jacob Whaley PhD, Phone: [phone] Maria A Soria APRN LAB BLOOD ORDERABLES Final Result Performing Organization Address City/[facility]/ZIP Co de Phone Number [facility] (AMBULATORY) [address] [place] [address], [place] [phone] [facility] [address] [place] [address], * Hepatitis C Antibody (07/23/2019 10:03 AM EST) Hepatitis C Ab Non-Reacti ve Non-Reacti ve 07/23/2019 6:31 PM EST [facility] Blood Venipuncture / Unknown 07/23/2019 10:03 AM EST 07/23/2019 10:38 AM EST Mukul Stevens MD LAB BLOOD ORDERABLES F inal Result [facility]
[address] [place] [address], from Last 3 Months or Most Recently [...] pulse or is breathing): Full Care Teams Outsole Caser Relationship Specialty Start Date End Date Maria A Soria, ANJU [address] [phone] PCP - General Family Medicine 02/15/23
--- OUTSIDE RECORDS SUMMARY | 2025-04-29 09:37 | XMS_ITS | Encounter Summary ---
Author Organization [employer] ([place], [place], [place], [place]) Address [address] [place] [address] Care Team Providers Care Master Tax Advisor Name Role Phone Unavailable Primary Care Provider Unavailabl e Encounter Details Date Type Department Care Team (Late st Contact Info) Description 08/24/2019 Transcribed Document [facility] [place] [address] [place] [address] ProviderLaury MD [address] [place] [address] Social History Tobacco Use Types Packs/Day [...] - Laury ProviderMD - 08/24/2019 2:30 PM SALVAGE MECHANIC [facility] PreOp Summary Primary Physician: LARRY MARTINES MD-SUR Finalized Date/Time: 08/24/19 10:30:24 Pt. Name: FREDDIE RUGGIEROGARICA /Sex: 1990 Female Med Rec #: [id number] Physician: LARRY MARTINES MD-SUR Financial #: [id number] Pt. Type: O Room/Bed: [facility] Admit/Disch: 08/24/19 09:42:00 - Institution: [facility] PreOp Case Times Entry 1 In Preop 08/24/19 10:06:00 Ready for Holding n/a Room Patient Ready for 08/24/19 10:30:00 Surgery Patient Out of Preop 08/24/19 10:30:00 Patient Out of n/a Holding Room [facility] Pre[facility] Case Times Audit 08/24/19 10:30:23 Department Helper: GEOVANNA Modifier: [email or web address] <+> 1 Patient Out of Preop <+> 1 Patient Ready for Surgery Finalized By: ANGE Green RN Document Signatures Signed By: ANGE Green RN 08/24/19 10:30 Electronically signed by Rochelle [facility] Conversion Ferryboat Helper Cerner at 11/02/2022 10:00 AM CDT documented in this encounter Plan of Treatment Not on file documented as of this encounter Visit Diagnoses Not on filedocumented in this encounter
--- OUTSIDE RECORDS SUMMARY | 2025-04-29 09:37 | XMS_ITS | Encounter Summary ---
Author Organization [employer] ([place], [place], [place], [place]) Address [address] [place] [address] Care Team Providers Care Historical Records Administrator Name Role Phone Unavailable Primary Care Provider Unavailabl e Encounter Details Date Type Department Care Team (Late st Contact Info) Description 01/05/[address] [facility] [place] Family Medicine [address] [place] [address] ProviderLaury MD [address] [place] [address] Social History Tobacco Use Types Packs/Day [...] On: 01/05/2020 8:27 EDT by CRISTOBAL HANSEN, RN-Printed Circuit Designer Initial Assessment I Previously Documented Living Environment [...] have PCP Listed? : Yes CRISTOBAL HANSEN RN-Printed Circuit Designer - 01/05/2020 8:27 EDT Initial Assessment II [...] : Discharge transportation, Outpatient services CRISTOBAL HANSEN RN-Printed Circuit Designer - 01/05/2020 8:27 EDT Narrative Note Narrative Note : Patient underwent laparoscopic gastrectomy sleeve. Lives at home with family, iADLs. Plan is to return home at ma, no services needed..................sds CRISTOBAL HANSEN RN-Printed Circuit Designer - 01/05/2020 8:27 EDT documented in this encounter Plan of Treatment Not on file documented as of this encounter Visit Diagnoses Not on filedocumented in this encounter
--- OUTSIDE RECORDS SUMMARY | 2025-04-29 09:38 | XMS_ITS | Encounter Summary ---
Author Organization [employer] ([place], [place], [place], [place]) Address [address] [place] [address] Care Team Providers Care Research & Analytics Manager Name Role Phone Unavailable Primary Care Provider Unavailabl e Encounter Details Date Type Department Care Team (Late st Contact Info) Description 09/26/2018 Transcribed Document [facility] [place] [place] [address] [place] [address] ProviderLaury MD [address] [place] [address] Social History Tobacco Use Types Packs/Day [...] - Urgent [facility] : [facility] [place] Dre, Marry 09/26/2018 16:51 EDT ED Visit Reason : Urinary/Voiding Complaints Primary Care Provider : Rema Ferreira, Ferry Engineer Accompanied By : Family/Spouse/SO Arrival Mode : [...] : No GI 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 : No Gluing Machine Operator Hx : No Heart Attack : [...] Preferred Communication Mode : Verbal Languages : [place] Child/Parent Domestic Concerns : None Threats of Suicide : No Marry Erickson 09/26/2018 16:51 EDT Height and Weight Height Source : Stated Height Entry Format : [place] Height, Inches : 65 Inch(Converted to: 5 ft 5 Inch, 165.10 cm) Clinical Height : 165.1 cm Weight Source : Stated Type of Weight Measurement Est : [place] Weight, est lb : 213 lb Estimated Clinical Dosing Weight : 96.82 kg [place] Body Weight : 57 kg Body Surface [...] ; Status: Documented ; Ordered As Mnemonic: [place] 5 mg-325 [...]
--- OUTSIDE RECORDS SUMMARY | 2025-04-29 09:38 | XMS_ITS | Encounter Summary ---
Author Organization [employer] ([place], [place], [place], [place]) Address [address] [place] [address] Care Team Providers Care Occupational Health Coordinator Name Role Phone Unavailable Primary Care Provider Unavailabl e Encounter Details Date Type Department Care Team (Late st Contact Info) Description 01/08/2019 Transcribed Document [facility] [place] [address] [place] [address] ProviderLaury MD [address] [place] [id number] Social History Tobacco Use Types Packs/Day Years [...] Laury ProviderMD - 01/08/2019 12:31 AM CDT [facility] ADDRESS [place], [place] [phone] Name:Crystal Archer Visit Date:01/07/2019 18:52:00 Emergency Department Care Providers: Physician: Physician: Our doctors and staff appreciate your choice of [facility] for your emergency medical care. Read these instructions carefully. Please call us if you have any questions about your medical problem. [facility] Emergency Department [phone] [facility] Emergency Department [phone] [facility] Emergency Department [phone] Patient Education Materials Crystal Archer Karen has [...] x-ray department to pick them up o [facility] # [phone] o [facility] # [phone] o [facility] # [phone] ?? If you had cultures done and [...] quit. o National Network of Tobacco Cessation [id number]-SSUP-NOW o [place] Association o [place] Heart Association [phone] o Sai/Manuel Mahendra [phone] FINANCIAL INFORMATION ?? [facility] provides financial counseling to anyone who requests our services. ?? Emergency Physicians are independently contracted to provide your care. You will receive a bill for the care provided to you by the Physician and/or the Physician Catalogue Librarian. This will be a separate bill from [...] as recommended Patient Signature / or Patient Industrial Fabric Cutter Provider Signature Date documented in this encounter Plan of Treatment Not on file documented as of this encounter Visit Diagnoses Not on filedocumented in this encounter
--- OUTSIDE RECORDS SUMMARY | 2025-04-29 09:38 | XMS_ITS | Encounter Summary ---
Author Organization [employer] ([place], [place], [place], [place]) Address [address] [place] [address] Care Team Providers Care [employer] Assistant Manager Name Role Phone Unavailable Primary Care Provider Unavailabl e Encounter Details Date Type Department Care Team (Late st Contact Info) Description 11/19/2018 Transcribed Document [facility] [place] [address] [place] [address] ProviderLaury MD [address] [place] [address] Social History Tobacco Use Types Packs/Day [...] Laury ProviderMD - 11/19/2018 1:52 AM CDT [facility] ADDRESS [place], [place] [phone] Name:Crystal Archer Visit Date:11/18/2018 20:06:00 Emergency Department Care Providers: Physician: Clara Elias Phys Asst Physician: Our doctors and staff appreciate your choice of [facility] for your emergency medical care. Read these instructions carefully. Please call us if you have any questions about your medical problem. [facility] Emergency Department [phone] [facility] Emergency Department [phone] [facility] Emergency Department [phone] Patient Education Materials Gianni Crystal Jones has [...] start to feel better. ??? Only take kgdx-dfm-bywglyu or prescription medicines for pain, discomfort, or [...] 01/29/2014 Elsevier Interactive Patient Education ? 2017 [employer] Obstetrics and Gynecology Urinary Tract Infection, Adult Introduction A urinary tract infection (UTI) is an infection of any part of the urinary tract. The urinary tract includes the: ??? Kidneys. ??? Ureters. ??? Bladder. ??? Urethra. These organs make, store, and get rid of pee (urine) in the body. Follow these instructions at home: ??? Take cdzw-xdm-zubgasi and prescription medicines only as told by [...] up o [facility] # [phone] o [facility] # [phone] o [facility] # [phone] ?? If you had cultures done and [...] quit. o National Network of Tobacco Cessation [id number]-GWPF-NOW o [place] Lung Association o [place] Heart Association [phone] o Sai/Manuel Mccray [phone] FINANCIAL INFORMATION ?? [facility] provides financial counseling to anyone who requests our services. ?? Emergency Physicians are independently contracted to provide your care. You will receive a bill for the care provided to you by the Physician and/or the Physician Field Software Engineer. This will be a separate bill [...] Patient Education Materials: ENT Otitis Media, Adult, Zavz-lh-Ayle Obstetrics and Gynecology Urinary Tract Infection, Adult, Uklh-ik-Hrsd Follow-Up Instructions: Follow Up With: Where: When: [...] as recommended Patient Signature / or Patient Meteorological Engineer Provider Signature Date Date/Time 11/18/2018 21:52 [facility] [...]
--- OUTSIDE RECORDS SUMMARY | 2025-04-29 09:38 | XMS_ITS | Encounter Summary ---
Author Organization [employer] ([place], [place], [place], [place]) Address [address] [place] [address] Care Team Providers Care Digital Watch Assembler Name Role Phone Unavailable Primary Care Provider Unavailabl e Encounter Details Date Type Department Care Team (Late st Contact Info) Description 08/03/2018 Transcribed Document [facility] Family Medicine [address] [place] [address] ProviderLaury MD [address] [place] [address] Social History Tobacco Use Types Packs/Day [...] - Laury ProviderMD - 08/03/2018 6:57 PM UNIT ASSEMBLER [facility] Triage ED Entered On: 08/03/2018 14:06 [...] back pain, dysuria since 0430. D/CD from [facility] 07/22 AMA for UTI. Health [...] : No GI 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 : No Dumper Bailer Operator Hx : No Heart Attack : [...] Preferred Communication Mode : Verbal Languages : Syrian Child/Parent Domestic Concerns : None Threats of Suicide : No ROSA FOSTER 08/03/2018 13:57 EST Height and Weight Height Source : Stated Height Entry Format : [place] Height, Inches : 65 Inch(Converted to: 5 ft 5 Inch, 165.10 cm) Clinical Height : 165.1 cm Weight Source : Stated Type of Weight Measurement Est : [place] Weight, est lb : 215 lb Estimated Clinical Dosing Weight : 97.73 kg [place] Body Weight : 57 kg Body Surface [...]
--- OUTSIDE RECORDS SUMMARY | 2025-04-29 09:38 | XMS_ITS | Encounter Summary ---
Author Organization [employer] ([place], [place], [place], [place]) Address [address] [place] [address] Care Team Providers Care Soa Integration Developer Name Role Phone Unavailable Primary Care Provider Unavailabl e Encounter Details Date Type Department Care Team (Late st Contact Info) Description 09/26/2018 Transcribed Document [facility] [place] Family Medicine [address] [place] [address] ProviderLaury MD [address] [place] [address] Social History Tobacco Use Types Packs/Day [...] Laury ProviderMD - 09/26/2018 10:56 PM CDT [facility] ADDRESS [place], [place] [phone] Name:Crystal Archer Visit Date:09/26/2018 16:44:00 Emergency Department Care Providers: Physician: INDIO PEREA Physician: Our doctors and staff appreciate your choice of [facility] for your emergency medical care. Read these instructions carefully. Please call us if you have any questions about your medical problem. [facility] Emergency Department [phone] [facility] Emergency Department [phone] [facility] Emergency Department [phone] Patient Education Materials Crystal Archer Karen has [...] 07/04/2006 Document Revised: 12/09/2016 Document Reviewed: 03/04/2014 [employer] Interactive Patient Education ? 2017 [employer] FOLLOW UP CARE Most conditions that [...] o [facility] # [phone] o [facility] # [phone] o [facility] # [phone] ?? If you had cultures done and [...] quit. o National Network of Tobacco Cessation [id number]-NOW o [place] o [place] Heart Association [phone] o Sai/Manuel Mccray [phone] FINANCIAL INFORMATION ?? [facility] provides financial counseling to anyone who requests our services. ?? Emergency Physicians are independently contracted to provide your care. You will receive a bill for the care provided to you by the Physician and/or the Physician Gas Refrigerator Servicer. This will be a separate bill from [...] as recommended Patient Signature / or Patient Vat Tender Provider Signature Date documented in this encounter Plan of Treatment Not on file documented as of this encounter Visit Diagnoses Not on filedocumented in this encounter
--- OUTSIDE RECORDS SUMMARY | 2025-04-29 09:38 | XMS_ITS | Encounter Summary ---
Author Organization [employer] ([place], [place], [place], [place]) Address [address] [place] [address] Care Team Providers Care Edge Banding Machine Offbearer Name Role Phone Unavailable Primary Care Provider Unavailabl e Encounter Details Date Type Department Care Team (Late st Contact Info) Description 01/08/[address] [facility] [place] [address] [place] [address] ProviderLaury MD [address] [place] [id number] Social History Tobacco Use Types Packs/Day Years [...] Laury ProviderMD - 01/08/2019 12:31 AM CDT [facility] ADDRESS [place], [place] [phone] Name:Crystal Archer Visit Date:01/07/2019 18:52:00 Emergency Department Care Providers: Physician: Physician: Our doctors and staff appreciate your choice of [facility] for your emergency medical care. Read these instructions carefully. Please call us if you have any questions about your medical problem. [facility] Emergency Department [phone] [facility] Emergency Department [phone] [facility] Emergency Department [phone] Patient Education Materials Crystal Archer Karen has [...] them up o [facility] # [phone] o [facility] # [phone] o [facility] # [phone] ?? If you had cultures done and [...] quit. o National Network of Tobacco Cessation YWprrwntl2-524-KIFC-NOW o [place] [employer] o [place] [employer] [phone] o Sai/Manuel Mahendra [phone] FINANCIAL INFORMATION ?? [facility] provides financial counseling to anyone who requests our services. ?? Emergency Physicians are independently contracted to provide your care. You will receive a bill for the care provided to you by the Physician and/or the Physician Motor Bus Driver. This will be a separate bill [...] recommended Patient Signature / or Patient Academic Success Coordinator Provider Signature Date Date/Time 01/07/2019 20:31 Saint [...]
--- OUTSIDE RECORDS SUMMARY | 2025-04-29 09:38 | XMS_ITS | Encounter Summary ---
Author Organization [employer] ([place], [place], [place], [place]) Address [address] [place] [address] Care Team Providers Care Integration Lead Name Role Phone Unavailable Primary Care Provider Unavailabl e Encounter Details Date Type Department Care Team (Late st Contact Info) Description 12/24/2018 Transcribed Document [facility] Family Medicine [address] [place] [address] ProviderLaury MD [address] [place] [address] Social History Tobacco Use Types Packs/Day [...] Laury ProviderMD - 12/24/2018 7:19 PM CDT [facility] Emergency Department Depart Summary PERSON INFORMATION Name Crystal Arcehr Age 28 Years 1990 Sex Female Language PCP Marital Status Phone [phone] Visit Id Visit Reason Specialty Enc Type Emergency Med Service Referred by Track Group [facility] Discharge Tracking Id [id number] Checkout 12/24/2018 15:19:27 Checkin 12/24/2018 15:01:00 Acuity 4 - Non-urgent [facility] Dispo Type Arrival 12/24/2018 15:01:00 Reg Status LOS 000 00:18 Address: [address] [place], [place] [address] [address] POWERFORMS PHYSICIAN NOTES VITALS INFORMATION Vital Sign Triage Temp 98.6 Temp Route Oral/Mouth Pulse Rate 101 Respiratory Rate 20 Blood Pressure 179/ 89 LOCATION INFORMATION Arrival Nurse Unit Room Bed 12/24/2018 15:01:00 [facility] ED Waitroom ([facility]) 12/24/2018 15:04:15 [facility] ED 1 12/24/2018 15:19:27 [facility] ED Checkout ([facility]) MEDICAL INFORMATION Allergy Info: No Known Allergies [...]
--- OUTSIDE RECORDS SUMMARY | 2025-04-29 09:38 | XMS_ITS | Encounter Summary ---
Author Organization [facility] Address [address], [address] [place] [address] Care Team Providers Care Magnetic Testing Technician Name Role Phone Jaquan Conley MD Primary Care Provider [phone] Reason for Referral * Imaging (Emergency) - Closed Specialty Diagnoses / Procedures Referred By Contac t Referred To Contact Radiology Diagnoses Urinary retention Procedures US RENAL COMPLETE Yue Abdalla APRN [address] [place] [address] Phone: tel: Referral ID Status Reason Start Date Expiration Date Visits Re quested Visits Authorized [id number] Closed 01/09/2021 01/09/2022 1 1 Encounter Details Date Type Department Care Team (Latest Contact Info) Description 01/09/2021 Transcribe Orders [facility] PRE ACCESS [address] [place] [address] Yue Abdalla APRN [address] [place] [address] Urinary retention (Primary Dx) Social [...] abnormality of the kidneys or urinary bladder. [facility] Rm HOISTING ENGINEER PILE DRIVING [facility] US ORDERABLES Final Result documented in this encounter Visit Diagnoses Diagnosis Urinary retention- Primary Retention of urine, unspecified Urinary retention Retention of urine, unspecified documented in this encounter Care Teams Magnetic Testing Technician Relationship Specialty Start Date End Date Jaquan Conley MD [address] [place] [address] PCP - General Internal Medicine 01/09/21 documented as of this encounter
--- OUTSIDE RECORDS SUMMARY | 2025-04-29 09:38 | XMS_ITS | Encounter Summary ---
Author Organization [employer] ([place], [place], [place], [place]) Address [address] [place] [address] Care Team Providers Care Electric Appliance Installer Name Role Phone Unavailable Primary Care Provider Unavailabl e Encounter Details Date Type Department Care Team (Late st Contact Info) Description 08/03/2018 Transcribed Document [facility] Family Medicine [address] [place] [address] ProviderLaury MD [address] [place] [address] Social History Tobacco Use Types Packs/Day [...] - Laury ProviderMD - 08/03/2018 7:32 PM DELIVERY ASSOCIATE [facility] Emergency Department Depart Summary PERSON INFORMATION Name Crystal Archer Age 27 Years 1990 Sex Female Language PCP Marital Status Phone [phone] Visit Id Visit Reason Specialty Enc Type Emergency Med Service Referred by Track Group [facility] [place] Discharge Tracking Id [id number] Checkout 08/03/2018 14:32:57 Checkin 08/03/2018 13:52:00 Acuity 3 - Urgent [facility] Dispo Type Arrival 08/03/2018 13:52:00 Reg Status LOS 000 00:40 Address: [address] [place] [address] [place] [address] POWERFORMS PHYSICIAN NOTES VITALS INFORMATION Vital Sign Triage Temp 98.1 Temp Route Oral/Mouth Pulse Rate 90 Respiratory Rate 18 Blood Pressure 152/ 87 LOCATION INFORMATION Arrival Nurse Unit Room Bed 08/03/2018 13:52:00 [facility] ED Waitroom ([facility]) 08/03/2018 13:55:29 [facility] ED 3 08/03/2018 14:32:57 [facility] ED Checkout ([facility]) MEDICAL INFORMATION Allergy Info: No Known Allergies PATIENT EDUCATION INFORMATION Instructions: Follow up: DIAGNOSIS Electronically signed by Zuleyka Byrd Conversion Customer Technical Services Manager Cerner at 10/19/2022 11:22 AM CDT documented in this encounter Plan of Treatment Not on file documented as of this encounter Visit Diagnoses Not on filedocumented in this encounter
--- OUTSIDE RECORDS SUMMARY | 2025-04-29 09:38 | XMS_ITS | Encounter Summary ---
Author Organization [employer] ([place], [place], [place], [place]) Address [address] [place] [address] Care Team Providers Care Sanitary Engineer Name Role Phone Unavailable Primary Care Provider Unavailabl e Encounter Details Date Type Department Care Team (Late st Contact Info) Description 01/08/2019 Transcribed Document [facility] Family Medicine [address] [place] [address] ProviderLaury MD [address] [place] [address] Social History Tobacco Use Types Packs/Day [...] Laury ProviderMD - 01/08/2019 12:31 AM CDT [facility] Emergency Department Depart Summary PERSON INFORMATION Name Crystal Archer Age 28 Years 1990 Sex Female Language PCP Marital Status Phone [phone] Visit Id Visit Reason Specialty Enc Type Emergency Med Service Referred by Track Group [place] Discharge Tracking Id [id number] Checkout 01/07/2019 20:31:56 Checkin 01/07/2019 18:52:00 Acuity 3 - Urgent [facility] Dispo Type Arrival 01/07/2019 18:52:00 Reg Status LOS 000 01:39 Address: [address] [place] [address] [place] [address] POWERFORMS PHYSICIAN NOTES VITALS INFORMATION Vital Sign Triage Temp 99.4 Temp Route Pulse Rate 96 Respiratory Rate 16 Blood Pressure 137/ 85 LOCATION INFORMATION Arrival Nurse Unit Room Bed 01/07/2019 18:52:00 [facility] ED Waitroom (K) 01/07/2019 20:31:56 [facility] ED Checkout ([facility]) MEDICAL INFORMATION Allergy Info: NSAIDs PATIENT EDUCATION INFORMATION Instructions: Follow up: DIAGNOSIS documented in this encounter Plan of Treatment Not on file documented as of this encounter Visit Diagnoses Not on filedocumented in this encounter
--- OUTSIDE RECORDS SUMMARY | 2025-04-29 09:38 | XMS_ITS | Encounter Summary ---
Author Organization [employer] ([place], [place], [place], [place]) Address [address] [place] [address] Care Team Providers Care Mechanical Insulator Name Role Phone Unavailable Primary Care Provider Unavailabl e Encounter Details Date Type Department Care Team (Late st Contact Info) Description 12/24/2018 Transcribed Document [facility] Family Medicine [address] [place] [address] ProviderLaury MD [address] [place] [address] Social History Tobacco Use Types Packs/Day [...] Laury ProviderMD - 12/24/2018 7:19 PM CDT [facility] ADDRESS [place], [place] [phone] Name:Crystal Archer Visit Date:12/24/2018 15:01:00 Emergency Department Care Providers: Physician: MEGHA MAN Physician: Our doctors and staff appreciate your choice of [facility] for your emergency medical care. Read these instructions carefully. Please call us if you have any questions about your medical problem. [facility] Emergency Department [phone] [facility] Emergency Department [phone] [facility] Emergency Department [phone] Patient Education Materials Gianni Crystal Karen has [...] Medicines may be prescribed or be available pzft-sic-ipvrhbj. The medicines may be: ??? Taken by mouth (orally). ??? Applied as a cream. Follow these instructions at home: ??? Take or apply aedo-ule-beiyjqh and prescription medicines only as told by [...] 03/21/2012 Document Revised: 02/27/2017 Document Reviewed: 01/05/2016 [employer] Interactive Patient Education ? 2019 I [employer] FOLLOW UP CARE Most conditions that require [...] the x-ray department to pick them up [facility] # [phone] [facility] # [phone] o [facility] # [phone] ?? If you had cultures done and [...] quit. o National Network of Tobacco Cessation [id number]-[id number]-NOW o [place] Lung Association o [place] Heart Association [phone] o Sai/Manuel Mccray [phone] FINANCIAL INFORMATION ?? [facility] provides financial counseling to anyone who requests our services. ?? Emergency Physicians are independently contracted to provide your care. You will receive a bill for the care provided to you by the Physician and/or the Physician Keycase Assembler. This will be a separate bill [...] as recommended Patient Signature / or Patient Kitchen Worker Provider Signature Date Date/Time 12/24/2018 15:19 [facility] Home Medications Name Cyrstal Archer Allergy Info: No Known Allergies Allergy [...]
--- OUTSIDE RECORDS SUMMARY | 2025-04-29 09:38 | XMS_ITS | Clinical Summary ---
Author Organization Luis Miguel Huizar [facility] Address [facility] [facility], [address] [place] [address] Care Team Providers Care Cupola Tapper Name Role Phone Jaquan Conley MD Primary Care Provider [phone] Social History Tobacco Use Types Packs/Day Years Used Date Smoking Tobacco: Never Assessed Comments Unknown Sex and Gender Information Value Date Recorded Sex Assigned at Not on file Legal Sex Female 11:22 AM EDT Gender Identity Not on file Sexual Orientation Not on file Plan of Treatment Not on file Insurance [facility] Care Teams Cupola Tapper Relationship Specialty Start Date End Date Jaquan Conley MD [address] [place] [address] PCP - General Internal Medicine 01/09/21
--- OUTSIDE RECORDS SUMMARY | 2025-04-29 09:38 | XMS_ITS | Encounter Summary ---
Author Organization [employer] ([place], [place], [place], [place]) Address [address] [place] [address] Care Team Providers Care Collar Sewer Name Role Phone Unavailable Primary Care Provider Unavailabl e Encounter Details Date Type Department Care Team (Late st Contact Info) Description 09/07/2018 Transcribed Document [facility] Family Medicine [address] [place] [address] ProviderLaury MD [address] [place] [address] Social History Tobacco Use Types Packs/Day [...] - Laury ProviderMD - 09/07/2018 9:31 PM BUSINESS INTELLIGENCE ETL DEVELOPER [facility] ADDRESS [place], [place] [phone] Name:Crystal Archer Visit Date:09/07/2018 15:20:00 Emergency Department Care Providers: Physician: MEGHA MAN Physician: Our doctors and staff appreciate your choice of [facility] for your emergency medical care. Read these instructions carefully. Please call us if you have any questions about your medical problem. [facility] Emergency Department [phone] [facility] Emergency Department [phone] [facility] Emergency Department [phone] Patient Education Materials Gianni Crystal Jones has [...] 12/15/2006 Document Revised: 03/06/2017 Document Reviewed: 12/11/2014 [employer] Interactive Patient Education ? 2017 [employer] FOLLOW UP CARE Most conditions that [...] up o [facility] # [phone] o [facility] # [phone] o [facility] # [phone] ?? If you had cultures done and [...] quit. o National Network of Tobacco Cessation EXsfdprvi8-488-GKOD-NOW o [place] Lung Association o [employer] Heart Association [phone] o Sai/Manuel Mccray [phone] FINANCIAL INFORMATION ?? [facility] provides financial counseling to anyone who requests our services. ?? Emergency Physicians are independently contracted to provide your care. You will receive a bill for the care provided to you by the Physician and/or the Physician Gum Rolling Machine Tender. This will be a separate bill from [...] as recommended Patient Signature / or Patient Rugby League Footballer Provider Signature Date Date/Time 09/07/2018 16:31 Saint [...] oral tablet loratadine 10 mg oral capsule Toluca 5 mg-325 mg oral tablet sodium bicarbonate Home Medications Comment: YOU SHOULD NO LONGER TAKE THESE MEDICATIONS Medication Dose Frequency amLODIPine-atorvastatin Comment: This med list is based on information you provided. Please take this form with you to check with your doctor(s) the appropriateness and dosages of all your medications. Gianni rOtez Holly Nashae, have received a copy of [...]
--- OUTSIDE RECORDS SUMMARY | 2025-04-29 09:38 | XMS_ITS | Encounter Summary ---
Author Organization [employer] ([place], [place], [place], [place]) Address [address] [place] [address] Care Team Providers Care Industrial Editor Name Role Phone Unavailable Primary Care Provider Unavailabl e Encounter Details Date Type Department Care Team (Late st Contact Info) Description 09/07/2018 Transcribed Document [facility] Family Medicine [address] [place] [address] ProviderLaury MD [address] [place] [address] Social History Tobacco Use Types Packs/Day [...] - Laury ProviderMD - 09/07/2018 9:31 PM KITCHEN BATH DESIGNER [facility] Emergency Department Depart Summary PERSON INFORMATION Name Crystal Archer Age 28 Years 1990 Sex Female Language PCP Marital Status Phone [phone] Visit Id Visit Reason Specialty Enc Type Emergency Med Service Referred by Track Group [facility] [place] Discharge Tracking Id [id number] Checkout 09/07/2018 16:31:16 Checkin 09/07/2018 15:20:00 Acuity 4 - Non-urgent [facility] Dispo Type Arrival 09/07/2018 15:20:00 Reg Status LOS 000 01:11 Address: [address] [place] [address] [place] [address] POWERFORMS PHYSICIAN NOTES VITALS INFORMATION Vital Sign Triage Temp 99.1 Temp Route Oral/Mouth Pulse Rate 61 Respiratory Rate 20 Blood Pressure 145/ 91 LOCATION INFORMATION Arrival Nurse Unit Room Bed 09/07/2018 15:20:00 [facility] ED Waitroom ([facility]) 09/07/2018 15:34:51 [facility] ED 9 09/07/2018 16:31:16 [facility] ED Checkout ([facility]) MEDICAL INFORMATION Allergy Info: No Known [...]
--- OUTSIDE RECORDS SUMMARY | 2025-04-29 09:38 | XMS_ITS | Encounter Summary ---
Author Organization [employer] ([place], [place], [place], [place]) Address [address] [place] [address] Care Team Providers Care Investigative Analyst Name Role Phone Unavailable Primary Care Provider Unavailabl e Encounter Details Date Type Department Care Team (Late st Contact Info) Description 12/24/2018 Transcribed Document [facility] [place] [address] [place] [address] ProviderLaury MD [address] [place] [address] Social History Tobacco Use Types Packs/Day [...] Rash Primary Care Provider : Rema Ferreira, Plastic Worker Accompanied By : Family/Spouse/SO Arrival Mode [...] : No GI 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 : No Business Management Associate Hx : No Heart Attack : [...] Source : Stated Height Entry Format : [place] Height, Inches : 65 Inch(Converted to: 5 ft 5 Inch, 165.10 cm) Clinical Height : 165.1 cm Weight Source : Bed scale Weight Entry Format : [place] Weight, Pounds : 221 lb Clinical Dosing Weight : 100.45 kg Body Surface Area-(BSA) : 2.15 m2 Body Mass Index : 36.9 kg/m2 (HI) [place] Body Weight : 57 kg Maddi Tomlin [...] EDT Electronically signed by Zuleyka Byrd Conversion Architectural Design Professor Cerner at 10/19/2022 11:23 AM CDT documented in this encounter Plan of Treatment Not on file documented as of this encounter Visit Diagnoses Not on filedocumented in this encounter
--- OUTSIDE RECORDS SUMMARY | 2025-04-29 09:38 | XMS_ITS | Encounter Summary ---
Author Organization [employer] ([place], [place], [place], [place]) Address [address] [place] [address] Care Team Providers Care Manager Pharmacy Name Role Phone Unavailable Primary Care Provider Unavailabl e Encounter Details Date Type Department Care Team (Late st Contact Info) Description 12/24/2018 Transcribed Document [facility] [place] [address] [place] [address] ProviderLaury MD [address] [place] [address] Social History Tobacco Use Types Packs/Day [...] Laury ProviderMD - 12/24/2018 7:19 PM CDT [facility] ADDRESS [place], [place] [phone] Name:Crystal Archer Visit Date:12/24/2018 15:01:00 Emergency Department Care Providers: Physician: MEGHA MAN Physician: Our doctors and staff appreciate your choice of [facility] for your emergency medical care. Read these instructions carefully. Please call us if you have any questions about your medical problem. [facility] Emergency Department [phone] [facility] Emergency Department [phone] [facility] Emergency Department [phone] Patient Education Materials Gianni Crystal Karen has [...] Medicines may be prescribed or be available bcly-dop-vhwasvq. The medicines may be: ??? Taken by mouth (orally). ??? Applied as a cream. Follow these instructions at home: ??? Take or apply gipp-dzm-xykasby and prescription medicines only as told by [...] 03/21/2012 Document Revised: 02/27/2017 Document Reviewed: 01/05/2016 [employer] Interactive Patient Education ? 2019 [employer]. FOLLOW UP CARE Most conditions that require [...] the x-ray department to pick them up [facility] # [phone] [facility] # [phone] o [facility] # [phone] ?? If you had cultures done and [...] quit. o National Network of Tobacco Cessation JZpcallhb4-043-OWML-NOW o [employer] Lung Association o [employer] Heart Association [phone] o Sai/Manuel Mccray [phone] FINANCIAL INFORMATION ?? [facility] provides financial counseling to anyone who requests our services. ?? Emergency Physicians are independently contracted to provide your care. You will receive a bill for the care provided to you by the Physician and/or the Physician Passport Application Examiner. This will be a separate bill [...] as recommended Patient Signature / or Patient Packer Denture Provider Signature Date Electronically signed by [facility] Conversion Chief Science Officer Cerner at 10/19/2022 11:23 AM CDT documented in this encounter Plan of Treatment Not on file documented as of this encounter Visit Diagnoses Not on filedocumented in this encounter
--- OUTSIDE RECORDS SUMMARY | 2025-04-29 09:38 | XMS_ITS | Encounter Summary ---
Author Organization [employer] ([place], [place], [place], [place]) Address [address] [place] [address] Care Team Providers Care Roller Varnisher Name Role Phone Unavailable Primary Care Provider Unavailabl e Encounter Details Date Type Department Care Team (Late st Contact Info) Description 01/07/2019 Transcribed Document [facility] [place] [address] [place] [address] ProviderLaury MD [address] [place] [address] Social History Tobacco Use Types Packs/Day [...] : No GI 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 : No Epidemiology Investigator Hx : No Heart Attack : No [...] 4 Pearl Waller - 01/07/2019 19:08 EDT Electronically signed by Zuleyka Byrd Conversion Supervisor Plating And Point Assembly Cerner at 10/19/2022 11:23 AM CDT documented in this encounter Plan of Treatment Not on file documented as of this encounter Visit Diagnoses Not on filedocumented in this encounter
--- OUTSIDE RECORDS SUMMARY | 2025-04-29 09:39 | XMS_ITS | Encounter Summary ---
Author Organization [employer] ([place], [place], [place], [place]) Address [address] [place] [address] Care Team Providers Care Medical Imaging Specialist Name Role Phone Unavailable Primary Care Provider Unavailabl e Encounter Details Date Type Department Care Team (Late st Contact Info) Description 08/03/2018 Transcribed Document [facility] Family Medicine [address] [place] [address] ProviderLaury MD [address] [place] [address] Social History Tobacco Use Types Packs/Day [...] - Laury ProviderMD - 08/03/2018 7:32 PM ROUTE DELIVERY MANAGER [facility] ADDRESS [place], [place] [phone] Name:Crystal Archer Visit Date:08/03/2018 13:52:00 Emergency Department Care Providers: Physician: MEGHA MAN Physician: Our doctors and staff appreciate your choice of [facility] for your emergency medical care. Read these instructions carefully. Please call us if you have any questions about your medical problem. [facility] Emergency Department [phone] [facility] Emergency Department [phone] [facility] Emergency Department [phone] Patient Education Materials Gianni Crystal Jones has [...] pick them up o [facility] # [phone] o [facility] # [phone] o [facility] # [phone] ?? If you had cultures done and [...] quit. o National Network of Tobacco Cessation PKobmghlw9-910-KPSO-NOW o [employer] o [employer] 2-487099-8023 o Sai/Manuel Mccray [phone] FINANCIAL INFORMATION ?? [facility] provides financial counseling to anyone who requests our services. ?? Emergency Physicians are independently contracted to provide your care. You will receive a bill for the care provided to you by the Physician and/or the Physician Registered Dental Assistant. This will be a separate bill [...] as recommended Patient Signature / or Patient Regasification Plant Operator Provider Signature Date Date/Time 08/03/2018 14:32 [...] Date Electronically signed by Zuleyka Byrd Conversion Workforce Development Program Director Keysha at 10/19/2022 11:22 AM CDT documented in this encounter Plan of Treatment Not on file documented as of this encounter Visit Diagnoses Not on filedocumented in this encounter
--- OUTSIDE RECORDS SUMMARY | 2025-04-29 09:39 | XMS_ITS | Clinical Summary ---
Author Organization [employer] ([place], [place], [place], [place]) Address [address] [place] [address] Care Team Providers Care Wireless Telegrapher Name Role Phone Unavailable Primary Care Provider [...] Date Blaine rded Speak language other than Chinese at home Not on file 07/30/2023 Want [...] complete this topic Insurance [facility] Advance Directives For more information, please contact: [phone] * Full Code (Latest Code Status on File) Date Activated Date Inactivated Comments 09/23/2022 6:27 AM 09/23/2022 11:31 AM
--- OUTSIDE RECORDS SUMMARY | 2025-04-29 09:39 | XMS_ITS | Referral Summary ---
Author Organization [employer] ([place], [place], [place], [place]) Address [address] [place] [address] Care Team Providers Care Dentofacial Orthopedics Dentist Name Role Phone Unavailable Primary Care Provider [...] Date Blaine rded Speak language other than Kosovan at home Not on file 07/30/2023 Want [...] file Insurance Lb MONTALVO MARTIN URIEL LOW[place] [id number] [facility] Advance Directives For more information, please contact: [phone] * Full Code (Latest Code Status on File) Date Activated Date Inactivated Comments 09/23/2022 6:27 AM 09/23/2022 11:31 AM
--- OUTSIDE RECORDS SUMMARY | 2025-04-29 09:39 | XMS_ITS | Encounter Summary ---
Author Organization [employer] ([place], [place], [place], [place]) Address [address] [place] [address] Care Team Providers Care Financial Advisor Trainee Name Role Phone Unavailable Primary Care Provider Unavailabl e Encounter Details Date Type Department Care Team (Late st Contact Info) Description 08/03/2018 Transcribed Document [facility] [place] [address] [place] [address] ProviderLaury MD [address] [place] [address] Social History Tobacco Use Types Packs/Day [...] - Laury ProviderMD - 08/03/2018 7:32 PM ONLINE COMMUNICATIONS MANAGER [facility] [place], [place] [phone] Name:Crystal Archer Visit Date:08/03/2018 13:52:00 Emergency Department Care Providers: Physician: MEGHA MAN Physician: Our doctors and staff appreciate your choice of [facility] for your emergency medical care. Read these instructions carefully. Please call us if you have any questions about your medical problem. [facility] Emergency Department [phone] [facility] Emergency Department [phone] [facility] [place] Emergency Department [phone] Patient Education Materials Gianni Crystal Jones has [...] up o [facility] # [phone] o [facility] # [phone] o [facility] # [phone] ?? If you had cultures done and [...] quit. o National Network of Tobacco Cessation LJfcusknj3-568-TMZY-NOW o [employer] o [employer] 1-542806-2012 o Sai/Manuel Mccray [phone] FINANCIAL INFORMATION ?? [facility] provides financial counseling to anyone who requests our services. ?? Emergency Physicians are independently contracted to provide your care. You will receive a bill for the care provided to you by the Physician and/or the Physician Ammunition Officer. This will be a separate bill from [...] as recommended Patient Signature / or Patient Hand Former Helper Provider Signature Date documented in this encounter Plan of Treatment Not on file documented as of this encounter Visit Diagnoses Not on filedocumented in this encounter
--- OUTSIDE RECORDS SUMMARY | 2025-04-29 09:39 | XMS_ITS | Encounter Summary ---
Author Organization [facility] Address [address] [place] [address] Care Team Providers Care Freezer Person Name Role Phone Jaquan Conley MD Primary Care Provider [phone] Reason for Visit * Reason Comments Med Refill Encounter Details Date Type Department Care Team (Late st Contact Info) Description 09/25/2024 Refill [facility] - Transplantation Surgery [address] [address] Cb Forrester MD [address] [facility], [address] [place] [address] Social History Tobacco Use Types Packs/Day Years [...] on filedocumented in this encounter Care Teams Freezer Person Relationship Specialty Start Date End Date Jaquan Conley MD [address] [place] [address] [place] [address] PCP - General Internal Medicine 09/18/20 documented as of this encounter
--- OUTSIDE RECORDS SUMMARY | 2025-04-29 09:39 | XMS_ITS | Clinical Summary ---
Author Organization [facility] Address [address] [facility] [facility] [address] [place] [address] Care Team Providers Care Care Assistant Name Role Phone Jaquan Conley MD Primary Care Provider [phone] Social History Tobacco Use Types Packs/Day Years [...] 2002 DTaP/Tdap/Td Vaccines (1 - Tdap) 2008 Pneumococcal Vaccine (1 of 2 - [...] on patient's age to complete this topic Hepatitis A Vaccines Aged Out No long er eligible based on patient's age to complete [...] 9:28 AM EDT 12/31/2024 9:54 AM EDT [facility] LAB - 12/31/2024 10:31 [place] [address] us Nikki Jeffery HARVESTER OPERATOR LAB BLOOD ORDERABLES Final Re sult Performing Organization Address City/State/[facility] Co de Phone Number [facility] [address] [place] [address], [facility] CH Remisol 2.0 SS Pathology Department [address] [place] [address] * (ABNORMAL) Comprehensive metabolic panel (12/31/2024 9:28 [...] 6.0 - 22.0 12/31/2024 10:31 AM EDT [facility] CH Remisol 2.0 SS Albumin 3.4(L) 3.5 - 5.2 Gram/dL 12/31/2024 10:31 AM EDT [facility] CH Remisol 2.0 SS Total Protein 6.1(L) 6.4 - 8.9 Gram/dL 12/31/2024 10:31 AM EDT [facility] CH Remisol 2.0 SS A/G Ratio 1.3 [...] - 1.0 mg/dL 12/31/2024 10:31 AM EDT [facility] CH Remisol 2.0 SS Globulin, Total 2.7 2.0 - 3.5 Gram/dL 12/31/2024 10:31 AM EDT L CH Remisol 2.0 SS EGFR 54(L) >=60 mL/min/1.7 3m2 12/31/2024 10:31 AM EDT [facility] Remisol 2.0 Comment:eGFR calculation per formed using the CKD-EPI 2020 equation (race variable excluded) Blood Venous Draw / Unknown 12/31/2024 9:28 AM EDT 12/31/2024 9:54 AM EDT Narrative [facility] - 12/31/2024 10:31 [place] [address] Nikki Jeffery APRN LAB BLOOD ORDERABLES Final Re sult Performing Organization Address [facility] Co de Phone Number [facility] [address] [place] [address], [facility] Remisol 2.0 Pathology Department [address] [place] [address] * Hepatitis C antibody (05/19/2023 8:10 AM EDT) Hep C Virus Ab NONREACTIVE Nonreactive 05/19/2023 12:09 PM EDT [facility] CH Remisol Blood 05/19/2023 8:10 AM EDT 05/19/2023 11:19 AM EDT Yue Kraft MD LAB BLOOD ORDERABLES Edited Resu lt - Final Performing Organization Address [facility] Co de Phone Number [facility] [address] [place] [address], [facility] ER Remisol Pathology Department [address] [place] [address] from Last 3 Months or Most Recently Relevant to Health Maintenance Insurance [place] [employer] Care Teams Care Assistant Relationship Specialty Start Date End Date Jaquan Conley MD [address] [place] [address] [place] [address] PCP - General Internal Medicine 09/18/20
--- OUTSIDE RECORDS SUMMARY | 2025-04-29 09:39 | XMS_ITS | Encounter Summary ---
Author Organization [employer] ([place], [place], [place], [place]) Address [address] [place] [address] Care Team Providers Care Excavator Backhoe Operator Name Role Phone Unavailable Primary Care Provider Unavailabl e Encounter Details Date Type Department Care Team (Late st Contact Info) Description 09/07/2018 Transcribed Document [facility] [place] [address] [place] [address] ProviderLaury MD [address] [place] [address] Social History Tobacco Use Types Packs/Day [...] - Laury ProviderMD - 09/07/2018 8:23 PM CAFETERIA DIRECTOR BBK Triage ED Entered On: 09/07/2018 15:30 [...] : No GI 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 : No Office Services Clerk Hx : No Heart Attack : No [...] Source : Stated Height Entry Format : Liberty Height, Inches : 65 Inch(Converted to: 5 ft 5 Inch, 165.10 cm) Clinical Height : 165.1 cm Weight Source : Stated Type of Weight Measurement Est : Liberty Weight, est lb : 215 lb Estimated Clinical Dosing Weight : 97.73 kg Canute Body Weight : 57 kg Body Surface Area Estimated : 2.12 m2 Body Mass Index Estimated : 35.85 kg/m2 Silvia Cole, - 09/07/2018 15:23 EST Medication List ED Medications Reviewed : Yes Source of Information : Patient Silvai Cole, - 09/07/2018 15:23 EST Medication List (As Of: 09/07/2018 15:30:02 EST) Home Meds Status: Processing ; Ordered As Mnemonic: Medford 5 mg-325 mg oral tablet ; Simple [...]
--- OUTSIDE RECORDS SUMMARY | 2025-04-29 09:39 | XMS_ITS | Encounter Summary ---
Author Organization [employer] ([place], [place], [place], [place]) Address [address] [place] [address] Care Team Providers Care Surgical Tech Name Role Phone Unavailable Primary Care Provider Unavailabl e Encounter Details Date Type Department Care Team (Late st Contact Info) Description 09/07/2018 Transcribed Document [facility] [place] Medicine [address] [place] [address] ProviderLaury MD [address] [place] [address] Social History Tobacco Use Types Packs/Day [...] - Laury ProviderMD - 09/07/2018 9:31 PM TRACK WATCHMAN [facility] ADDR[facility] [place], [place] [phone] Name:Crystal Archer Visit Date:09/07/2018 15:20:00 Emergency Department Care Providers: Physician: MEGHA MAN Physician: Our doctors and staff appreciate your choice of [facility] for your emergency medical care. Read these instructions carefully. Please call us if you have any questions about your medical problem. [facility] Emergency Department [phone] [facility] Emergency Department [phone] [facility] Emergency Department [phone] Patient Education Materials Gianni Crystal Jones has [...] 12/15/2006 Document Revised: 03/06/2017 Document Reviewed: 12/11/2014 [employer] Patient Education ? 2017 [employer] FOLLOW UP CARE Most conditions that [...] up o [facility] # [phone] o [facility] # [phone] o [facility] # [phone] ?? If you had cultures done and [...] quit. o National Network of Tobacco Cessation TXqrllxnw4-403-ZAVB-NOW o [employer] Lung Association o [employer] Heart Association 5-054491-2722 o Sai/Manuel Mccray [phone] FINANCIAL INFORMATION ?? [facility] provides financial counseling to anyone who requests our services. ?? Emergency Physicians are independently contracted to provide your care. You will receive a bill for the care provided to you by the Physician and/or the Physician Dial Lathe Operator. This will be a separate bill [...] as recommended Patient Signature / or Patient Hook Up Driver Provider Signature Date Electronically signed by Zuleyka Byrd Conversion Veterinary Surgery Technologist Cerner at 10/19/2022 11:22 AM CDT documented in this encounter Plan of Treatment Not on file documented as of this encounter Visit Diagnoses Not on filedocumented in this encounter
[2025-04-29 10:15] LABS: Hematocrit 33.9 % (37.0-47.0); Hemoglobin 10.8 g/dL (12.2-16.2); Immature Granulocytes % 0.8 %; Mean Corpuscular HGB Conc 31.9 g/dL (31.8-35.4); Mean Corpuscular Hemoglobin 29.0 pg (27.0-31.2); Mean Corpuscular Volume 91.1 fl (81-99); Nucleated Red Blood Cells % 0 %; Platelet Count 135 K/mm3 (142-424); Red Blood Count 3.72 M/mm3 (4.20-5.40); Red Cell Distribution Width-SD 43.7 fL; White Blood Count 3.6 K/mm3 (4.8-10.8)
[2025-04-29 10:36] LABS: Albumin Level 3.5 g/dl (3.5-5.0); Chloride 108 mmol/L (98-107); Sodium 139 mmol/L (136-145)
[2025-04-29 10:37] LABS: Potassium 5.0 mmoL/L (3.5-5.1)
[2025-04-29 10:37] LABS: Chloride 107 mmol/L (98-107); Sodium 139 mmol/L (136-145)
[2025-04-29 10:38] LABS: Albumin Level 3.6 g/dl (3.5-5.0); Potassium 5.1 mmoL/L (3.5-5.1)
[2025-04-29 10:39] LABS: Alanine Aminotransferase 22 U/L (12-78); Albumin/Globulin Ratio 1.3 (1.1-1.8); Anion Gap 10.0 mEq/L (5-15); Aspartate Amino Transferase 20 U/L (14-36); Blood Urea Nitrogen 13 mg/dl (7-17); Carbon Dioxide 26 mmol/L (22.0-30.0); Creatinine,Serum 0.70 mg/dl (0.52-1.04); Estimated Glomerular Filt Rate 95 ml/min (>60); GFR (African American) 115 ML/MIN (>60); Globulin 2.6 g/dL (1.3-3.2); Total Protein,Serum 6.1 g/dl (6.3-8.2)
[2025-04-29 10:40] LABS: Anion Gap 12.1 mEq/L (5-15); Blood Urea Nitrogen 13 mg/dl (7-17); Carbon Dioxide 25 mmol/L (22.0-30.0); Creatinine,Serum 0.80 mg/dl (0.52-1.04); Estimated Glomerular Filt Rate 82 ml/min (>60); GFR (African American) 99 ML/MIN (>60)
[2025-04-29 10:40] LABS: Alkaline Phosphatase 76 U/L (38-126); Bilirubin,Total 0.7 mg/dl (0.2-1.3); Calcium 9.3 mg/dl (8.4-10.2); Glucose 87 mg/dl (74-100); Magnesium 1.4 mg/dl (1.6-2.3); Phosphorous 3.0 mg/dl (2.5-4.5)
[2025-04-29 10:41] LABS: Calcium 9.3 mg/dl (8.4-10.2); Glucose 87 mg/dl (74-100); Phosphorous 3.0 mg/dl (2.5-4.5)
[2025-05-01 16:36] LABS: Tacrolimus (FK506), Blood 5.1 ng/mL (5.0-20.0)
== END 2025-04-29 23:59 | disposition home or self-care (01) ==
LOC: LAB 09:32
PROVIDERS: Internal Medicine Nephrology; PCP Nurse Practitioner; Visit Provider Nurse Practitioner Family
DX: Z94.0 Kidney transplant status (principal)
CPT/HCPCS: 36415; 80053; 80069; 80197; 82570; 83735; 84100; 84156; 85025

== ENCOUNTER 2025-05-30 11:13 | Outpatient (CLI) | payer MEDICAID, SELFPAY ==
--- OUTSIDE RECORDS SUMMARY | 2025-05-30 11:29 | XMS_ITS | Encounter Summary ---
Author Organization [employer] ([place], [place], [place], [place], [place]) Address [address] [place] [address] Care Team Providers Care Worksite Wellness Practitioner Name Role Phone Unavailable Primary Care Provider Unavailabl e Encounter Details Date Type Department Care Team (Late st Contact Info) Description 01/19/2020 Transcribed Document [facility] [place] [address] [place] [address] ProviderLaury MD [address] [place] [address] Social History Tobacco Use Types Packs/Day [...] On: 01/19/2020 8:59 EDT by CRISTOBAL HANSEN RN-Twisting Machine Operator Readmission Questionnaire Patient Status at Discharge, Previous Admission : Inpatient Did Patient Leave AMA Pre Admission : No Readmission : Unplanned Readmission Reason: : Patient/caregiver decided on their own to come to ED ED Visit Between Hospitalization : No DC Destination, Previous Admission : Discharge To Care Management: Home/Residential/[facility] or Self Care - (01/19/20 08:56:00) If [...] Was Readm Preventable : No CRISTOBAL HANSEN, RN-Twisting Machine Operator - 01/19/2020 8:59 EDT Electronically signed by Rochelle [facility] Conversion Unhairer Cerner at 11/02/2022 9:56 AM CDT documented in this encounter Plan of Treatment Not on file documented as of this encounter Visit Diagnoses Not on filedocumented in this encounter
--- OUTSIDE RECORDS SUMMARY | 2025-05-30 11:29 | XMS_ITS | Encounter Summary ---
Author Organization [employer] ([place], [place], [place], [place], [place]) Address [address] [place] [address] Care Team Providers Care Coke Crane Operator Name Role Phone Unavailable Primary Care Provider Unavailabl e Encounter Details Date Type Department Care Team (Late st Contact Info) Description 01/19/2020 Transcribed Document [facility] Family Medicine [address] [place] [address] ProviderLaury MD [address] [place] [address] Social History Tobacco Use Types Packs/Day [...] 01/19/2020 15:30 EDT Electronically signed by Rochelle [facility] Conversion Power Plant Supervisor Cerner at 11/02/2022 10:02 AM CDT documented in this encounter Plan of Treatment Not on file documented as of this encounter Visit Diagnoses Not on filedocumented in this encounter
--- OUTSIDE RECORDS SUMMARY | 2025-05-30 11:29 | XMS_ITS | Encounter Summary ---
Author Organization [employer] ([place], [place], [place], [place], [place]) Address [address] [place] [address] Care Team Providers Care Supervisor Word Processing Name Role Phone Unavailable Primary Care Provider Unavailabl e Encounter Details Date Type Department Care Team (Late st Contact Info) Description 01/19/2020 Transcribed Document [facility] [place] [address] [place] [address] ProviderLaury MD [address] [place] [id number] Social History Tobacco Use Types Packs/Day Years [...] pharmacies and retail stores. ??? Eat bland, rzrj-vy-ejxjdn foods in small amounts as you are [...] and water are not available, use hand hr recruiter. Make sure that everyone in your household washes their hands frequently. ??? Take iket-kyw-pztsjvt and prescription medicines only as told by [...] and water are not available, use hand hr recruiter. Make sure that everyone in your household [...] 07/30/2016 Document Revised: 12/12/2018 Document Reviewed: 12/12/2018 [employer] Patient Education ? 2020 [employer] Endocrinology Hypoglycemia Hypoglycemia occurs when the [...] instructions at home: General instructions ??? Take orjs-inz-zabpfkz and prescription medicines only as told by [...] 07/04/2006 Document Revised: 12/26/2018 Document Reviewed: 08/06/2016 [employer] Interactive Patient Education ? 2020 [employer] documented in this encounter Plan of Treatment Not on file documented as of this encounter Visit Diagnoses Not on filedocumented in this encounter
--- OUTSIDE RECORDS SUMMARY | 2025-05-30 11:29 | XMS_ITS | Encounter Summary ---
Author Organization [employer] ([place], [place], [place], [place], [place]) Address [address] [place] [address] Care Team Providers Care Grapple Operator Name Role Phone Unavailable Primary Care Provider Unavailabl e Encounter Details Date Type Department Care Team (Late st Contact Info) Description 01/19/2020 Transcribed Document [facility] Family Medicine [address] [place] [address] ProviderLaury MD [address] [place] [address] Social History Tobacco Use Types Packs/Day Years [...] documented in chart. Surgical history: section x2 (61163405). Dilation and curettage ([id number]). Tubal ligation ([id number]). wisdom teeth. kidney biopsy. EGD. Stomach biopsy. Gastric sleeve ([id number]).. Family history: Not significant, No family history [...] EDT Height Source Stated Height Entry Format Simla Height/Length, CAMBODIAN (ft) 5 ft Height/Length CAMBODIAN 5 Inch CLINICALHEIGHT 165.1 cm [place]ade Body Weight 56.59 kg Weight Source, ED Standing scale Weight Entry Format Simla Weight Ivorian lb 230.8 lb CLINICALWEIGHT 104.91 kg Body [...] 39.0 % Lymph # 3.92 K/uL HI Hooker % 7.3 % Hooker # 0.73 K/uL Eos % 2.4 % Eos # 0.24 K/uL Baso % 0.4 % Baso # 0.04 K/uL Slide Review No IG# 0 x10(3)/uL IG% 0 % . Notes: Preliminary ReportNAME:FREDDIE ARCHER / SEX:1990 / FemaleMRN / ACC#:[id number] / [id number] ORDERING PHYSICIAN:Ordering Provider, UpdateEXAM REQUESTED:[id number]--ZG ABDOMEN & PELVIS W/O CONTRAST [facility]RADIOLOGIST NAME:MD Ashely, [facility]IN[facility]:status post gastric sleeve surgery on [...] No rash, no cyanosis, capillary refill brisk PLASTIC SURGEON: Awake alert oriented ??4, nonfocal exam Psych: [...]
--- OUTSIDE RECORDS SUMMARY | 2025-05-30 11:30 | XMS_ITS | Encounter Summary ---
Author Organization [facility] Address [address] 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
--- OUTSIDE RECORDS SUMMARY | 2025-05-30 11:30 | XMS_ITS | Encounter Summary ---
Author Organization [facility] Address [address] [place] [address] Care Team Providers Care Material Handler Loader Name Role Phone Jaquan Conley MD Primary Care Provider + [phone] Reason for Visit * Reason Comments Med Refill Encounter Details Date Type Department Care Team (Late st Contact Info) Description 05/21/2025 Refill [facility] Endocrinology [address] [place] [address] Paz Echeverria MD [address] [address] Type 2 diabetes mellitus with other specified complication, with long-term current use of insulin Social [...] documented as of this encounter Care Teams Material Handler Loader Relationship Specialty Start Date End Date Jaquan Conley MD [address] [place] [address] PCP - General 11/28/20 documented as of this encounter
--- OUTSIDE RECORDS SUMMARY | 2025-05-30 11:30 | XMS_ITS | Clinical Summary ---
Author Organization [facility] Address [facility] [facility], [address] [place] [address] Care Team Providers Care Relationship Consultant Name Role Phone Jaquan Conley MD Primary Care Provider [phone] Social History Tobacco Use Types Packs/Day Years Used Date Smoking Tobacco: Never Assessed Comments Unknown Sex and Gender Information Value Date Recorded Sex Assigned at Not on file Legal Sex Female 11:22 AM EDT Gender Identity Not on file Sexual Orientation Not on file Plan of Treatment Not on file Insurance [facility] Care Teams Relationship Consultant Relationship Specialty Start Date End Date Jaquan Conley MD [address] [place] [address] PCP - General Internal Medicine 01/09/21
--- OUTSIDE RECORDS SUMMARY | 2025-05-30 11:30 | XMS_ITS | Encounter Summary ---
Author Organization [employer] ([place], [place], [place], [place], [place]) Address [address] [place] [address] Care Team Providers Care Seed Laboratory Assistant Name Role Phone Unavailable Primary Care Provider Unavailabl e Encounter Details Date Type Department Care Team (Late st Contact Info) Description 01/04/2020 Transcribed Document [facility] [place] Family Medicine [address] [place] [address] ProviderLaury MD [address] [place] [address] Social History Tobacco Use Types Packs/Day [...] 01/04/2020 19:04 EDT Electronically signed by Rochelle [facility] Conversion Diamond Die Driller Cerner at 11/02/2022 10:03 AM CDT documented in this encounter Plan of Treatment Not on file documented as of this encounter Visit Diagnoses Not on filedocumented in this encounter
--- OUTSIDE RECORDS SUMMARY | 2025-05-30 11:30 | XMS_ITS | Encounter Summary ---
Author Organization [employer] ([place], [place], [place], [place], [place]) Address [address] [place] [address] Care Team Providers Care Research Development Manager Name Role Phone Unavailable Primary Care Provider Unavailabl e Encounter Details Date Type Department Care Team (Late st Contact Info) Description 01/04/2020 Transcribed Document [facility] [place] Family Medicine [address] [place] [address] ProviderLaury MD [address] [place] [address] Social History Tobacco Use Types Packs/Day [...]
--- OUTSIDE RECORDS SUMMARY | 2025-05-30 11:30 | XMS_ITS | Encounter Summary ---
Author Organization [employer] ([place], [place], [place], [place], [place]) Address [address] [place] [address] Care Team Providers Care Medical Lab Scientist Name Role Phone Unavailable Primary Care Provider Unavailabl e Encounter Details Date Type Department Care Team (Late st Contact Info) Description 01/04/2020 Transcribed Document [facility] Family Medicine [address] [place] [address] ProviderLaury MD [address] [place] [address] Social History Tobacco Use Types Packs/Day [...] Conversion Note - Laury ProviderMD - 01/04/2020 10:31 AM CDT Patient: FREDDIE ARCHER Age: 29 Years Sex: Female : 1990 OPERATIVE REPORT DATE OF PROCEDURE: 01/04/2020 PREOPERATIVE DIAGNOSIS(ES): Morbid obesity POSTOPERATIVE DIAGNOSIS(ES): Morbid obesity PROCEDURE: 1. Laparoscopic sleeve gastrectomy SURGEON: Xavi Mejia M.D. EXHAUST WORKER: Daniel steinberg MD ANESTHESIA: General. SPECIMEN: Stomach. INDICATION FOR PROCEDURE: is a 29-year-old patient with custodial history of morbid obesity and CKD, has [...] was done, we proceeded to place the 54-Tongan bougie down the esophagus into the stomach under direct visualization. When it was in the antrum, we proceeded to staple the stomach in a parallel manner to the greater curvature, creating a sleeve gastrectomy using the Duque stapler. We used green loads, all reinforced [...]
--- OUTSIDE RECORDS SUMMARY | 2025-05-30 11:30 | XMS_ITS | Encounter Summary ---
Author Organization [facility] Address [address] 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
--- OUTSIDE RECORDS SUMMARY | 2025-05-30 11:30 | XMS_ITS | Encounter Summary ---
Author Organization [employer] ([place], [place], [place], [place], [place]) Address [address] [place] [address] Care Team Providers Care Bit Tripoler Name Role Phone Unavailable Primary Care Provider Unavailabl e Encounter Details Date Type Department Care Team (Late st Contact Info) Description 01/05/2020 Transcribed Document [facility] [place] Family Medicine [address] [place] [address] ProviderLaury MD [address] [place] [address] Social History Tobacco Use Types Packs/Day Years Used Date Smoking Tobacco: Never Assessed Comments Unknown Sex and Gender Information Value Date Recorded Sex Assigned at Female 01/12/2022 7:15 PM CDT Legal Sex Female 7:15 PM CDT Gender Identity Female 01/12/2022 7:15 PM CDT Sexual Orientation Not on file documented as of this encounter Miscellaneous Notes * Keysha Conversion Note - Laury ProviderMD - 01/05/2020 5:00 AM CDT Chart Check - Review Order Profile Entered On: 01/05/2020 7:38 EDT Performed On: 01/05/2020 5:00 EDT by Mickey Fuentes, RN Chart Check Powerplans Initiated/Discontinued as Appropriate : Yes All Active Orders Reviewed : Yes Mickey Fuentes RN - 01/05/2020 7:38 EDT Electronically signed by Rochelle [facility] Conversion Fiscal Analyst Cerner at 11/02/2022 10:09 AM CDT documented in this encounter Plan of Treatment Not on file documented as of this encounter Visit Diagnoses Not on filedocumented in this encounter
--- OUTSIDE RECORDS SUMMARY | 2025-05-30 11:30 | XMS_ITS | Encounter Summary ---
Author Organization [employer] ([place], [place], [place], [place], [place]) Address [address] [place] [address] Care Team Providers Care Interlocking Installer Name Role Phone Unavailable Primary Care Provider Unavailabl e Encounter Details Date Type Department Care Team (Late st Contact Info) Description 11/19/2018 Transcribed Document [facility] [place] [address] [place] [address] ProviderLaury MD [address] [place] [address] Social History Tobacco Use Types Packs/Day [...] 4 - Non-urgent [facility] Tracking [employer] : GM Marry Ramírez 11/18/2018 20:14 EDT ED Visit [...] : No GI 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 : No Wallpaperer Hx : No Heart Attack : No [...] Preferred Communication Mode : Verbal Languages : Mongolian Child/Parent Domestic Concerns : None Threats of Suicide : No Marry Erickson 11/18/2018 20:14 EDT Height and Weight Height Source : Stated Height Entry Format : [place] Height, Inches : 65 Inch(Converted to: 5 ft 5 Inch, 165.10 cm) Clinical Height : 165.1 cm Weight Source : Bed scale Weight Entry Format : [place] Weight, Pounds : 220 lb Clinical Dosing Weight : 100 kg Body Surface Area-(BSA) : 2.14 m2 Body Mass Index : 36.7 kg/m2 (HI) [place] Body Weight : 57 kg Marry Erickson [...] EDT Electronically signed by Zuleyka Byrd Conversion Marketing Intelligence Analyst Cerner at 10/19/2022 11:23 AM CDT documented in this encounter Plan of Treatment Not on file documented as of this encounter Visit Diagnoses Not on filedocumented in this encounter
--- OUTSIDE RECORDS SUMMARY | 2025-05-30 11:30 | XMS_ITS | Encounter Summary ---
Author Organization [employer] ([place], [place], [place], [place], [place]) Address [address] [place] [address] Care Team Providers Care Heel Builder Machine Name Role Phone Unavailable Primary Care Provider Unavailabl e Encounter Details Date Type Department Care Team (Late st Contact Info) Description 01/19/2020 Transcribed Document [facility] [place] Family Medicine [address] [place] [address] ProviderLaury MD [address] [place] [address] Social History Tobacco Use Types Packs/Day [...] - 01/19/2020 16:16 EDT Electronically signed by Rochelle [facility] Conversion Ventilation Worker Cerner at 11/02/2022 9:56 AM CDT documented in this encounter Plan of Treatment Not on file documented as of this encounter Visit Diagnoses Not on filedocumented in this encounter
--- OUTSIDE RECORDS SUMMARY | 2025-05-30 11:30 | XMS_ITS | Encounter Summary ---
Author Organization [employer] ([place], [place], [place], [place], [place]) Address [address] [place] [address] Care Team Providers Care Teacher Advisor Name Role Phone Unavailable Primary Care Provider Unavailabl e Encounter Details Date Type Department Care Team (Late st Contact Info) Description 10/31/2018 Transcribed Document [facility] Family Medicine [address] [place] [address] ProviderLaury MD [address] [place] [address] Social History Tobacco Use Types Packs/Day [...] - 10/31/2018 1:17 AM CDT [facility] Emergency Department Depart Summary PERSON INFORMATION Name Crystal Archer Age 28 Years 1990 Sex Female Language PCP Marital Status Phone [phone] Visit Id Visit Reason Specialty Enc Type Emergency Med Service Referred by Track Group [facility] Discharge Tracking Id [id number] Checkout 10/30/2018 21:17:02 Checkin 10/30/2018 20:23:00 Acuity 4 - Non-urgent [facility] Dispo Type Arrival 10/30/2018 20:23:00 Reg Status LOS 000 00:54 Address: [address] [place] [address] [place] [address] POWERFORMS PHYSICIAN NOTES VITALS INFORMATION Vital Sign Triage Temp 99 Temp Route Oral/Mouth Pulse Rate 92 Respiratory Rate 22 Blood Pressure 169/ 99 LOCATION INFORMATION Arrival Nurse Unit Room Bed 10/30/2018 20:23:00 [facility] ED Waitroom ([facility]) 10/30/2018 20:35:06 [facility] ED 9 10/30/2018 21:17:02 [facility] ED Checkout ([facility]) MEDICAL [...]
--- OUTSIDE RECORDS SUMMARY | 2025-05-30 11:30 | XMS_ITS | Encounter Summary ---
Author Organization [employer] ([place], [place], [place], [place], [place]) Address [address] [place] [address] Care Team Providers Care Cane Weigher Name Role Phone Unavailable Primary Care Provider Unavailabl e Encounter Details Date Type Department Care Team (Late st Contact Info) Description 01/07/2019 Transcribed Document [facility] Family Medicine [address] [place] [address] ProviderLaury MD [address] [place] [address] Social History Tobacco Use Types Packs/Day [...] - Urgent [facility]K Tracking Group : [facility] [place] Sridhar, Pearl L - 01/07/2019 19:08 EDT ED Visit Reason [...] Health History Reviewed : Yes Pearl Waller 01/07/2019 19:08 EDT Health History ED Grid Alcohol Use : No Caffeine Use : Yes Substance Abuse : No Tobacco Use : Yes, 1ppd Asthma/COPD : No Cancer : No CVA/TIA : No Mental Illness : No Dementia : No Diabetes : Yes, insulin pump 2014 General Cardiac : No GI 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 : No Front End Driver Hx : No Heart Attack : [...]
--- OUTSIDE RECORDS SUMMARY | 2025-05-30 11:30 | XMS_ITS | Encounter Summary ---
Author Organization [employer] ([place], [place], [place], [place], [place]) Address [address] [place] [address] Care Team Providers Care Chair Springer Name Role Phone Unavailable Primary Care Provider Unavailabl e Encounter Details Date Type Department Care Team (Late st Contact Info) Description 01/04/2020 Transcribed Document [facility] [place] Family Medicine [address] [place] [address] ProviderLaury MD [address] [place] [address] Social History Tobacco Use Types Packs/Day [...]
--- OUTSIDE RECORDS SUMMARY | 2025-05-30 11:30 | XMS_ITS | Encounter Summary ---
Author Organization [employer] ([place], [place], [place], [place], [place]) Address [address] [place] [address] Care Team Providers Care Watch Supervisor Name Role Phone Unavailable Primary Care Provider Unavailabl e Encounter Details Date Type Department Care Team (Late st Contact Info) Description 10/31/2018 Transcribed Document [facility] Family Medicine [address] [place] [address] ProviderLaury MD [address] [place] [address] Social History Tobacco Use Types Packs/Day [...] Laury ProviderMD - 10/31/2018 1:17 AM CDT [facility] ADDRESS [place], [place] [phone] Name:Crystal Archer Visit Date:10/30/2018 20:23:00 Emergency Department Care Providers: Physician: MEGHA MAN Physician: Our doctors and staff appreciate your choice of [facility] for your emergency medical care. Read these instructions carefully. Please call us if you have any questions about your medical problem. [facility] Emergency Department [phone] [facility] Emergency Department [phone] [facility] Emergency Department [phone] Patient Education Materials Gianni Crystal Karen has [...] 10/19/2011 Document Revised: 11/11/2016 Document Reviewed: 06/30/2015 ElseW[employer]le Interactive Patient Education ? 2017 [employer] FOLLOW UP CARE Most conditions that [...] them up o [facility] # [phone] o [facility] # [phone] o [facility] # [phone] ?? If you had cultures done and [...] quit. o National Network of Tobacco Cessation NZzzgooak7-920-MNJF-NOW o [place] [employer] o [place] Heart Association 1-374762-6591 o Sai/Manuel Mccray [phone] FINANCIAL INFORMATION ?? [facility] provides financial counseling to anyone who requests our services. ?? Emergency Physicians are independently contracted to provide your care. You will receive a bill for the care provided to you by the Physician and/or the Physician Principal Mechanical Engineer. This will be a separate bill [...] as recommended Patient Signature / or Patient Digital Advisor Provider Signature Date Date/Time 10/30/2018 21:17 [facility] [...] Dose Frequency amLODIPine 2.5 mg oral tablet [place] 5 mg-325 mg oral tablet Comment: This [...] Date Electronically signed by Zuleyka Byrd Conversion Electrical Parts Reconditioner Cerner at 10/19/2022 11:23 AM CDT documented in this encounter Plan of Treatment Not on file documented as of this encounter Visit Diagnoses Not on filedocumented in this encounter
--- OUTSIDE RECORDS SUMMARY | 2025-05-30 11:30 | XMS_ITS | Encounter Summary ---
Author Organization [employer] ([place], [place], [place], [place], [place]) Address [address] [place] [address] Care Team Providers Care Jute Bag Clipper Name Role Phone Unavailable Primary Care Provider Unavailabl e Encounter Details Date Type Department Care Team (Late st Contact Info) Description 01/05/2020 Transcribed Document [facility] [place] Family Medicine [address] [place] [address] ProviderLaury MD [address] [place] [address] Social History Tobacco Use Types Packs/Day [...] your book, please call the Center at [phone]. documented in this encounter Plan of Treatment Not on file documented as of this encounter Visit Diagnoses Not on filedocumented in this encounter
--- OUTSIDE RECORDS SUMMARY | 2025-05-30 11:30 | XMS_ITS | Encounter Summary ---
Author Organization [employer] ([place], [place], [place], [place], [place]) Address [address] [place] [address] Care Team Providers Care Camp Maintenance Supervisor Name Role Phone Unavailable Primary Care Provider Unavailabl e Encounter Details Date Type Department Care Team (Late st Contact Info) Description 01/19/2020 Transcribed Document [facility] Family Medicine [address] [place] [address] ProviderLaury MD [address] [place] [address] Social History Tobacco Use Types Packs/Day [...] Laury ProviderMD - 01/19/2020 3:30 PM CDT [address] [address] FREDDIE RUGGIEROGARCIA :1990 Visit Time:01/19/2020 Your Visit Summary Your Care Team Admitting Physician - AHMED, CORDERO A, LAZARA VANEGAS MD PHY, UNKNOWN Attending Physician - CONSUELO ESTEVEZ MD-EMR ELSALLABI, OSAMA, MD Primary Care Physician - ERIKA PERSAUD [...] pharmacies and retail stores. ??? Eat bland, mbge-dv-phekgh foods in small amounts as you are [...] and water are not available, use hand airframe and power plant mechanic. Make sure that everyone in your household washes their hands frequently. ??? Take fevs-vpd-njenleb and prescription medicines only as told by [...] and water are not available, use hand airframe and power plant mechanic. Make sure that everyone in your household [...] 07/30/2016 Document Revised: 12/12/2018 Document Reviewed: 12/12/2018 Avaz Interactive Patient Education ?? 2020 [employer]. Hypoglycemia Hypoglycemia occurs when the level of [...] instructions at home: General instructions ??? Take wtyt-vci-dvnmcbt and prescription medicines only as told by [...] 07/04/2006 Document Revised: 12/26/2018 Document Reviewed: 08/06/2016 Avaz Interactive Patient Education ?? 2020 [employer]. Emergency Awareness and Preventative Care STROKE is [...] Assistance with quitting is available by contacting 1-668-KPBG-NOW. This is a free resource providing counseling, [...] range between ( 1.0 and 7.0 ) [place] #: 0.73 K/uL -- Normal range between ( 0.24 and 0.82 ) Eos #: 0.24 K/uL -- Normal range between ( 0.04 and 0.54 ) [place] %: 7.3 % -- Normal range between [...] ) Urine Bilirubin Dipstick: Negative Urine Specific [place]: 1.012 -- Normal range between ( 1.005 [...] was given the opportunity to ask questions. Patient/Tool Machine Setup Operator Name: Patient/Tool Machine Setup Operator Signature: Relationship to Patient: Clinician/Hospital Tool Machine Setup Operator Signature: Date: documented in this encounter Plan of Treatment Not on file documented as of this encounter Visit Diagnoses Not on filedocumented in this encounter
--- OUTSIDE RECORDS SUMMARY | 2025-05-30 11:30 | XMS_ITS | Encounter Summary ---
Author Organization [employer] ([place], [place], [place], [place], [place]) Address [address] [place] [address] Care Team Providers Care Shower Attendant Name Role Phone Unavailable Primary Care Provider Unavailabl e Encounter Details Date Type Department Care Team (Late st Contact Info) Description 12/24/2018 Transcribed Document [facility] Family Medicine [address] [place] [address] ProviderLaury MD [address] [place] [address] Social History Tobacco Use Types Packs/Day Years Used Date Smoking Tobacco: Never Assessed Comments Unknown Sex and Gender Information Value Date Recorded Sex Assigned at Female 01/12/2022 7:15 PM CDT Legal Sex Female 7:15 PM CDT Gender Identity Female 01/12/2022 7:15 PM CDT Sexual Orientation Not on file documented as of this encounter Miscellaneous Notes * Cerner Conversion Note - Luary ProviderMD - 12/24/2018 7:19 PM CDT [facility] ADDRESS [place], [place] [phone] Name:Crystal Archer Visit Date:12/24/2018 15:01:00 Emergency Department Care Providers: Physician: MEGHA MAN Physician: Our doctors and staff appreciate your choice of [facility] for your emergency medical care. Read these instructions carefully. Please call us if you have any questions about your medical problem. [facility] Emergency Department [phone] [facility] Emergency Department [phone] [facility] Emergency [facility] [phone] Patient Education Materials Gianni Crystal Jones has [...] Medicines may be prescribed or be available qrkq-nwm-mjhqozl. The medicines may be: ??? Taken by mouth (orally). ??? Applied as a cream. Follow these instructions at home: ??? Take or apply caht-tdr-lhpywsf and prescription medicines only as told by [...] 03/21/2012 Document Revised: 02/27/2017 Document Reviewed: 01/05/2016 Baifendian Interactive Patient Education ? 2019 [employer]. FOLLOW UP CARE Most conditions that require [...] to pick them up o [facility] # [phone] [facility] # [phone] o [facility] # [phone] ?? If you had cultures done and [...] quit. o National Network of Tobacco Cessation GNknfmiix0-225-UILL-NOW o [place] Lung Association o [place] Heart Association [phone] o Sai/Manuel Mccray [phone] FINANCIAL INFORMATION ?? [facility] provides financial counseling to anyone who requests our services. ?? Emergency Physicians are independently contracted to provide your care. You will receive a bill for the care provided to you by the Physician and/or the Physician Web Worker. This will be a separate bill [...] as recommended Patient Signature / or Patient Joint Finisher Provider Signature Date Electronically signed by Rochelle, [facility] Conversion Mixing Machine Attendant Cerner at 10/19/2022 11:23 AM CDT documented in this encounter Plan of Treatment Not on file documented as of this encounter Visit Diagnoses Not on filedocumented in this encounter
--- OUTSIDE RECORDS SUMMARY | 2025-05-30 11:30 | XMS_ITS | Encounter Summary ---
Author Organization [email or web address] ([place], [place], [place], [place], [place]) Address [address] [place] [address] Care Team Providers Care Centerpuncher Name Role Phone Unavailable Primary Care Provider Unavailabl e Encounter Details Date Type Department Care Team (Late st Contact Info) Description 01/19/2020 Transcribed Document [facility] [address] [place] [address] ProviderLaury MD [address] [place] [address] Social History Tobacco Use Types Packs/Day Years [...] Physician Requested for Consult : LARRY MARTINES MD-[facility] Physician Covering for Consult : LARRY MARTINES MD-[facility]AN[facility] Date and Time Call Returned : 01/19/2020 9:04 EDT ASPEN CROWDER - 01/19/2020 9:04 EDT Electronically signed by Rochelle [facility] Conversion Plant Culture Manager Cerner at 11/02/2022 10:05 AM CDT documented in this encounter Plan of Treatment Not on file documented as of this encounter Visit Diagnoses Not on filedocumented in this encounter
--- OUTSIDE RECORDS SUMMARY | 2025-05-30 11:30 | XMS_ITS | Encounter Summary ---
Author Organization [employer] ([place], [place], [place], [place], [place]) Address [address] [place] [address] Care Team Providers Care Phlebotomy Coordinator Name Role Phone Unavailable Primary Care Provider Unavailabl e Encounter Details Date Type Department Care Team (Late st Contact Info) Description 10/31/2018 Transcribed Document [facility] Family Medicine [address] [place] [address] ProviderLaury MD [address] [place] [address] Social History Tobacco Use Types Packs/Day [...] Laury ProviderMD - 10/31/2018 1:17 AM CDT [facility] ADDRESS [place], [place] [phone] Name:Crystal Archer Visit Date:10/30/2018 20:23:00 Emergency Department Care Providers: Physician: MEGHA MAN Physician: Our doctors and staff appreciate your choice of [facility] for your emergency medical care. Read these instructions carefully. Please call us if you have any questions about your medical problem. [facility] Emergency Department [phone] [facility] Emergency Department [phone] [facility] Emergency Department [phone] Patient Education Materials Gianni Crystal Karen has [...] 10/19/2011 Document Revised: 11/11/2016 Document Reviewed: 06/30/2015 ElseInsight Plus Interactive Patient Education ? 2017 [employer]. FOLLOW UP CARE Most conditions that [...] x-ray department to pick them up o [facility] # [phone] o [facility] # [phone] o [facility] # [phone] ?? If you had cultures done and [...] quit. o National Network of Tobacco Cessation PGzjultcf3-187-QUDF-NOW o [place] [employer] o [place] Heart Association [phone] o Sai/Manuel Mccray [phone] FINANCIAL INFORMATION ?? [facility] provides financial counseling to anyone who requests our services. ?? Emergency Physicians are independently contracted to provide your care. You will receive a bill for the care provided to you by the Physician and/or the Physician Ward Nurse. This will be a separate bill from [...] as recommended Patient Signature / or Patient Oxygen Therapist Provider Signature Date documented in this encounter Plan of Treatment Not on file documented as of this encounter Visit Diagnoses Not on filedocumented in this encounter
--- OUTSIDE RECORDS SUMMARY | 2025-05-30 11:30 | XMS_ITS | Encounter Summary ---
Author Organization [employer] ([place], [place], [place], [place], [place]) Address [address] [place] [address] Care Team Providers Care Shoes Salesperson Name Role Phone Unavailable Primary Care Provider Unavailabl e Encounter Details Date Type Department Care Team (Late st Contact Info) Description 09/26/2018 Transcribed Document [facility] [place] [facility] [place] [address] [place] [address] ProviderLaury MD [address] [place] [address] Social History Tobacco Use Types Packs/Day [...] Laury ProviderMD - 09/26/2018 10:56 PM CDT [facility] Emergency Department Depart Summary PERSON INFORMATION Name Crystal Archer Age 28 Years 1990 Sex Female Language PCP Marital Status Phone [phone] Visit Id Visit Reason Specialty Enc Type Emergency Med Service Referred by Track Group [facility] Discharge Tracking Id [id number] Checkout 09/26/2018 18:56:15 Checkin 09/26/2018 16:44:00 Acuity 3 - Urgent [facility] Dispo Type Arrival 09/26/2018 16:44:00 Reg Status LOS 000 02:12 Address: [address] [place] [address] [place] [address] POWERFORMS PHYSICIAN NOTES VITALS INFORMATION Vital Sign Triage Temp 98.7 Temp Route Oral/Mouth Pulse Rate 102 Respiratory Rate 20 Blood Pressure 140/ 72 LOCATION INFORMATION Arrival Nurse Unit Room Bed 09/26/2018 16:44:00 [facility] ED Waitroom ([facility]) 09/26/2018 16:50:17 [facility] ED 3 09/26/2018 18:56:15 [facility] ED Checkout ([facility]) MEDICAL INFORMATION Allergy Info: No Known Allergies PATIENT EDUCATION INFORMATION Instructions: Hematuria, Adult Follow up: With: Address: When: Follow up with primary care provider Within 5 to 7 days DIAGNOSIS documented in this encounter Plan of Treatment Not on file documented as of this encounter Visit Diagnoses Not on filedocumented in this encounter
--- OUTSIDE RECORDS SUMMARY | 2025-05-30 11:30 | XMS_ITS | Encounter Summary ---
Author Organization [employer] ([place], [place], [place], [place], [place]) Address [address] [place] [address] Care Team Providers Care Varsity Baseball Coach Name Role Phone Unavailable Primary Care Provider Unavailabl e Encounter Details Date Type Department Care Team (Late st Contact Info) Description 09/26/2018 Transcribed Document [facility] [place] Family Medicine [address] [place] [address] ProviderLaury MD [address] [place] [address] Social History Tobacco Use Types Packs/Day [...] Laury ProviderMD - 09/26/2018 10:56 PM CDT [facility] ADDRESS [place], [place] [phone] Name:Crystal Archer Visit Date:09/26/2018 16:44:00 Emergency Department Care Providers: Physician: INDIO PEREA Physician: Our doctors and staff appreciate your choice of [facility] for your emergency medical care. Read these instructions carefully. Please call us if you have any questions about your medical problem. [facility] Emergency Department [phone] [facility] Emergency Department [phone] [facility] Emergency Department [phone] Patient Education Materials Crystal Archer Karen has [...] 07/04/2006 Document Revised: 12/09/2016 Document Reviewed: 03/04/2014 [employer] Interactive Patient Education ? 2017 [employer] FOLLOW UP CARE Most conditions that [...] the x-ray department to pick them up [facility] # [phone] [facility] # [phone] o [facility] # [phone] ?? If you had cultures done and [...] quit. o National Network of Tobacco Cessation [id number]-SGMN-NOW o [employer] o [employer] [phone] o Sai/Manuel Mccray [phone] FINANCIAL INFORMATION ?? [facility] provides financial counseling to anyone who requests our services. ?? Emergency Physicians are independently contracted to provide your care. You will receive a bill for the care provided to you by the Physician and/or the Physician Intelligence Manager. This will be a separate bill [...] as recommended Patient Signature / or Patient Printing Press Operator Provider Signature Date Date/Time 09/26/2018 18:56 [...] oral tablet loratadine 10 mg oral capsule Gardena 5 mg-325 mg oral tablet sodium bicarbonate [...]
--- OUTSIDE RECORDS SUMMARY | 2025-05-30 11:30 | XMS_ITS | Encounter Summary ---
Author Organization [employer] ([place], [place], [place], [place], [place]) Address [address] [place] [address] Care Team Providers Care R Programmer Name Role Phone Unavailable Primary Care Provider Unavailabl e Encounter Details Date Type Department Care Team (Late st Contact Info) Description 01/18/2020 Transcribed Document [facility] [place] Family Medicine [address] [place] [address] ProviderLaury MD [address] [place] [address] Social History Tobacco Use Types Packs/Day [...] Laury ProviderMD - 01/18/2020 8:28 PM CDT [place] Suicide Severity Rating Scale (C-SSRS) Entered On: 01/18/2020 21:29 EDT Performed On: 01/18/2020 21:29 EDT by JASON FUENTES, RN [place] Suicide Severity Rating Scale (C-SSRS) CSSRS Past Month Wish to be : No CSSRS Past Month Suicidal Thoughts : No CSSRS Lifetime Suicide Behavior : No Suicide Severity Rating Score : 0 Suicide Severity Rating : No Additional Care Required at this time JASON FUENTES RN - 01/18/2020 21:29 EDT documented in this encounter Plan of Treatment Not on file documented as of this encounter Visit Diagnoses Not on filedocumented in this encounter
--- OUTSIDE RECORDS SUMMARY | 2025-05-30 11:30 | XMS_ITS | Encounter Summary ---
Author Organization [employer] ([place], [place], [place], [place], [place]) Address [address] [place] [address] Care Team Providers Care Hydraulic Miner Name Role Phone Unavailable Primary Care Provider Unavailabl e Encounter Details Date Type Department Care Team (Late st Contact Info) Description 01/18/2020 Transcribed Document [facility] Family Medicine [address] [place] [address] ProviderLaury MD [address] [place] [address] Social History Tobacco Use Types Packs/Day [...] EDT DCP GENERIC CODE Tracking Group : [facility] Tracking Acuity : 2 - [...] Problems(Active) At risk for sleep apnea (IMO :45175760 ) Name of Problem: At risk for sleep apnea ; Recorder: SYSTEM, SYSTEM; Confirmation: Confirmed ; Classification: Medical ; Code: 41643522 ; Last Updated: 08/24/2019 10:25 EST ; Life Cycle Date: 08/24/2019 ; Life Cycle Status: Active ; Vocabulary: IMO DM (diabetes mellitus) (SNOMED CT :080258593 ) Name of Problem: DM (diabetes mellitus) ; Recorder: ANGE Green RN; Confirmation: Confirmed ; Classification: Medical ; Code: 146486604 ; Contributor System: PowerChart ; Last Updated: 08/24/2019 10:17 EST ; Life Cycle Date: 08/24/2019 ; Life Cycle Status: Active ; Vocabulary: SNOMED CT HTN (hypertension) (SNOMED CT :2136794395 ) Name of Problem: HTN (hypertension) ; Recorder: ANGE Green RN; Confirmation: Confirmed ; Classification: Medical ; Code: 6018680089 ; Contributor System: PowerChart ; Last Updated: 08/24/2019 10:16 EST ; Life Cycle Date: 08/24/2019 ; Life Cycle Status: Active ; Vocabulary: SNOMED CT Hyperkalemia (SNOMED CT :19949544 ) Name of Problem: Hyperkalemia ; Recorder: Noelle Umanzor Rn; Confirmation: Confirmed ; Classification: Medical ; Code: 65796690 ; Contributor System: PowerChart ; Last Updated: 10/03/2019 10:52 EDT ; Life Cycle Date: 10/03/2019 ; Life Cycle Status: Active ; Vocabulary: SNOMED CT Hyperlipemia (SNOMED CT :38857712 ) Name of Problem: Hyperlipemia ; Recorder: ANGE Green RN; Confirmation: Confirmed ; Classification: Medical ; Code: 65585608 ; Contributor System: PowerChart ; Last Updated: 08/24/2019 10:17 EST ; Life Cycle Date: 08/24/2019 ; Life Cycle Status: Active ; Vocabulary: SNOMED CT Kidney disease (SNOMED CT :489541585 ) Name of Problem: Kidney disease ; Recorder: ANGE Green RN; Confirmation: Confirmed ; Classification: Medical ; Code: 811630136 ; Contributor System: PowerChart ; Last Updated: 08/24/2019 10:17 EST ; Life Cycle Date: 08/24/2019 ; Life Cycle Status: Active ; Vocabulary: SNOMED CT Neuropathy (SNOMED CT :7952074326 ) Name of Problem: Neuropathy ; Recorder: ANGE Green RN; Confirmation: Confirmed ; Classification: Medical ; Code: 0030181424 ; Contributor System: PowerChart ; Last Updated: 08/24/2019 10:18 EST ; Life Cycle Date: 08/24/2019 ; Life Cycle Status: Active ; Vocabulary: SNOMED CT Retinopathy (SNOMED CT :33470101 ) Name of Problem: Retinopathy ; Recorder: Noelle Umanzor Rn; Confirmation: Confirmed ; Classification: Medical ; Code: 62399780 ; Contributor System: PowerChart ; Last Updated: 10/03/2019 10:52 EDT ; Life Cycle Date: 10/03/2019 ; Life Cycle Status: Active ; Vocabulary: SNOMED CT Diagnoses(Active) Dehydration Date: 01/18/2020 ; Diagnosis Type: Reason For Visit ; Confirmation: Complaint of ; Clinical Dx: Dehydration ; Classification: Medical ; Clinical Service: Emergency medicine ; Code: PNED ; Probability: 0 ; Diagnosis Code: [id number] Vomiting Date: 01/18/2020 ; Diagnosis Type: Reason For Visit ; Confirmation: Complaint of ; Clinical Dx: Vomiting ; Classification: Medical ; Clinical Service: Emergency medicine ; Code: PNED ; Probability: 0 ; Diagnosis Code: [id number] ED Height and Weight Height Source : Stated Height Entry Format : [place] Height, Feet : 5 ft(Converted to: 152 cm, 60 Inch) Height, Inches : 5 Inch(Converted to: 0 ft 5 Inch, 12.70 cm) Clinical Height : 165.1 cm Weight Source, ED : Standing scale Weight Entry Format : [place] Weight, Pounds : 230.8 lb Clinical Dosing Weight : 104.91 kg Body Surface Area (BSA) : 2.1 m2 Body Mass Index : 38.5 kg/m2 (HI) [place] Body Weight (IBW) : 56.59 kg MARKIE PANG RN - 01/18/2020 20:31 EDT documented in this encounter Plan of Treatment Not on file documented as of this encounter Visit Diagnoses Not on filedocumented in this encounter
--- OUTSIDE RECORDS SUMMARY | 2025-05-30 11:30 | XMS_ITS | Encounter Summary ---
Author Organization [employer] ([place], [place], [place], [place], [place]) Address [address] [place] [address] Care Team Providers Care Hand Spray Operator Name Role Phone Unavailable Primary Care Provider Unavailabl e Encounter Details Date Type Department Care Team (Late st Contact Info) Description 08/24/[address] [facility] [place] Medicine [address] [place] [address] ProviderLaury MD [address] [place] [address] Social History Tobacco Use Types Packs/Day [...] - Historical ProviderMD - 08/24/2019 2:30 PM RIVET HOLE MACHINE OPERATOR [facility] End[facility] PreOp Summary Primary Physician: LARRY MARTINES MD-SUR Finalized Date/Time: 08/24/19 10:30:24 Pt. Name: FREDDIE RUGGIERO FELICIA /Sex: 1990 Female Med Rec #: [id number] Physician: LARRY MARTINES MD-SUR Financial #: [id number] Pt. Type: O Room/Bed: [facility]/ Admit/Disch: 08/24/19 09:42:00 - Institution: [facility] PreOp Case Times Entry 1 In Preop 08/24/19 10:06:00 Ready for Holding n/a Room Patient Ready for 08/24/19 10:30:00 Surgery Patient Out of Preop 08/24/19 10:30:00 Patient Out of n/a Holding Room [facility] PreOp Case Times Audit 08/24/19 10:30:23 Core Java Engineer: GEOVANNA Modifier: [email or web address] <+> 1 Patient Out of Preop <+> 1 Patient Ready for Surgery Finalized By: ANGE Green RN Document Signatures Signed By: ANGE Green RN 08/24/19 10:30 Electronically signed by [facility] Conversion Photographic Spotter Cerner at 11/02/2022 10:00 AM CDT documented in this encounter Plan of Treatment Not on file documented as of this encounter Visit Diagnoses Not on filedocumented in this encounter
--- OUTSIDE RECORDS SUMMARY | 2025-05-30 11:30 | XMS_ITS | Clinical Summary ---
Author Organization [facility] Address [address] [place] [address] Care Team Providers Care Senior Storage Engineer Name Role Phone Unavailable Primary Care [...] therelease of HIV test results or diagnoses. [id number] Allergies Active Allergy Reactions Criticality Noted [...] - Td or Tdap) 09/28/2033 09/29/2023 Insurance [facility] care Address: [facility] [id number] [place] [address]
--- OUTSIDE RECORDS SUMMARY | 2025-05-30 11:30 | XMS_ITS | Encounter Summary ---
Author Organization [employer] ([place], [place], [place], [place], [place]) Address [address] [place] [address] Care Team Providers Care Manager Employee Benefits Name Role Phone Unavailable Primary Care Provider Unavailabl e Encounter Details Date Type Department Care Team (Late st Contact Info) Description 01/05/2020 Transcribed Document [facility] [place] [address] [place] [address] ProviderLaury MD [address] [place] [address] Social History Tobacco Use Types Packs/Day [...]
--- OUTSIDE RECORDS SUMMARY | 2025-05-30 11:30 | XMS_ITS | Encounter Summary ---
Author Organization [employer] ([place], [place], [place], [place], [place]) Address [address] [place] [address] Care Team Providers Care Lieutenant Ballistics Name Role Phone Unavailable Primary Care Provider Unavailabl e Encounter Details Date Type Department Care Team (Late st Contact Info) Description 01/19/2020 Transcribed Document [facility] [place] Family Medicine [address] [place] [address] ProviderLaury MD [address] [place] [address] Social History Tobacco Use Types Packs/Day [...]
--- OUTSIDE RECORDS SUMMARY | 2025-05-30 11:30 | XMS_ITS | Encounter Summary ---
Author Organization [employer] ([place], [place], [place], [place], [place]) Address [address] [place] [address] Care Team Providers Care Explosive Man Name Role Phone Unavailable Primary Care Provider Unavailabl e Encounter Details Date Type Department Care Team (Late st Contact Info) Description 01/08/2019 Transcribed Document [facility] [place] [address] [place] [address] ProviderLaury MD [address] [place] [address] Social History Tobacco Use Types Packs/Day [...] Sex Female Language PCP Marital Status Phone [phone] Visit Id Visit Reason Specialty Enc Type Emergency Med Service Referred by Track Group [facility] Discharge Tracking Id [id number] Checkout 01/07/2019 20:31:56 Checkin 01/07/2019 18:52:00 Acuity 3 - Urgent [facility] Dispo Type Arrival 01/07/2019 18:52:00 Reg Status LOS 000 01:39 Address: [address] [place] [address] [place] [address] POWERFORMS PHYSICIAN NOTES VITALS INFORMATION Vital Sign Triage Temp 99.4 Temp Route Pulse Rate 96 Respiratory Rate 16 Blood Pressure 137/ 85 LOCATION INFORMATION Arrival Nurse Unit Room Bed 01/07/2019 18:52:00 [facility] ED Waitroom (K) 01/07/2019 20:31:56 [facility] ED Checkout ([facility]) MEDICAL INFORMATION Allergy Info: NSAIDs PATIENT EDUCATION INFORMATION Instructions: Follow up: DIAGNOSIS documented in this encounter Plan of Treatment Not on file documented as of this encounter Visit Diagnoses Not on filedocumented in this encounter
--- OUTSIDE RECORDS SUMMARY | 2025-05-30 11:30 | XMS_ITS | Encounter Summary ---
Author Organization [employer] ([place], [place], [place], [place], [place]) Address [address] [place] [address] Care Team Providers Care Talent Engineer Name Role Phone Unavailable Primary Care Provider Unavailabl e Encounter Details Date Type Department Care Team (Late st Contact Info) Description 01/19/2020 Transcribed Document [facility] [place] [facility] [place] [address] ProviderLaury MD [address] [place] [address] Social History Tobacco Use Types Packs/Day [...] Obtained From : Patient Primary Language : [place] Preferred Communication Mode : Verbal Communication Barrier : None Manager Tax Needed : No OCTAVIO BRAND RN - [...] Scale Risk Level : 0-24 Low Risk [place] Interventions : Adequate lighting, Bed in [...] Source : Stated Height Entry Format : [place] Height, Feet : 5 ft(Converted to: 152 cm, 60 Inch) Height, Inches : 5 Inch(Converted to: 0 ft 5 Inch, 12.70 cm) Clinical Height : 165.1 cm Weight Source : Standing scale Weight Entry Format : [place] Clinical Dosing Weight : 104.91 kg Weight, Pounds : 230.8 lb Body Surface Area (BSA) : 2.1 m2 Body Mass Index : 38.5 kg/m2 (HI) [place] Body Weight : 57 kg OCTAVIO BRAND [...] OCTAVIO BRAND RN - 01/19/2020 8:36 EDT [place] Suicide Severity Rating Scale (C-SSRS) CSSRS Past [...]
--- OUTSIDE RECORDS SUMMARY | 2025-05-30 11:30 | XMS_ITS | Encounter Summary ---
Author Organization [employer] ([place], [place], [place], [place], [place]) Address [address] [place] [address] Care Team Providers Care Chip Person Name Role Phone Unavailable Primary Care Provider Unavailabl e Encounter Details Date Type Department Care Team (Late st Contact Info) Description 11/19/2018 Transcribed Document [facility] [place] [address] [place] [address] ProviderLaury MD [address] [place] [address] Social History Tobacco Use Types Packs/Day [...] Laury ProviderMD - 11/19/2018 1:52 AM CDT [facility] Emergency Department Depart Summary PERSON INFORMATION Name Crystal Archer Age 28 Years 1990 Sex Female Language PCP Marital Status Phone [phone] Visit Id Visit Reason Specialty Enc Type Emergency Med Service Referred by Track Group [facility] Discharge Tracking Id [id number] Checkout 11/18/2018 21:52:54 Checkin 11/18/2018 20:06:00 Acuity 4 - Non-urgent [facility] Dispo Type Arrival 11/18/2018 20:06:00 Reg Status MIRIAM 000 01:46 Address: [address] [place] [address] [place] [address] POWERFORMS PHYSICIAN NOTES VITALS INFORMATION Vital Sign Triage Temp 99.0 Temp Route Oral/Mouth Pulse Rate 107 Respiratory Rate 18 Blood Pressure 147/ 87 LOCATION INFORMATION Arrival Nurse Unit Room Bed 11/18/2018 20:06:00 [facility] ED Waitroom ([facility]) 11/18/2018 20:10:40 [facility] ED 8 11/18/2018 21:33:06 [facility] ED STA-3 11/18/2018 21:52:54 [facility] ED Checkout ([facility]) MEDICAL INFORMATION Allergy Info: No Known Allergies PATIENT EDUCATION INFORMATION Instructions: Urinary Tract Infection, Adult, [id number]; Otitis Media, Adult, [id number] Follow up: With: Address: When: Follow up with primary care provider Within 1-2 days With: Address: When: Return to Emergency Department Within As needed DIAGNOSIS documented in this encounter Plan of Treatment Not on file documented as of this encounter Visit Diagnoses Not on filedocumented in this encounter
--- OUTSIDE RECORDS SUMMARY | 2025-05-30 11:30 | XMS_ITS | Clinical Summary ---
Author Organization [facility] Address [address] [place] [place] [address] Care Team Providers Care High Heel Builder Name Role Phone Jaquan Conley MD Primary Care Provider + [phone] Allergies Active Allergy Reactions Criticality Noted Date [...] Syringe U/F 31G X 5/16 0.5 ML miscIndications :Type 1 diabetes mellitus with other specified complication Use as instructed to inject insulin 4+ times daily in event of pump failure 100 each 3 023 Active acetone, urine, test stripIndication s:Type 2 diabetes mellitus with other specified complication, [...] Active insulin aspart (NovoLOG) 100 UNIT/ML injection vialIndications :Type 2 diabetes mellitus with other specified complication, with long-term current use of insulin To be used in insulin pump. MDD 75u 70 mL 1 025 Active Lancets misc Use 3 times/day 200 each 2 025 Active Blood Glucose Monitoring Suppl (Blood Glucose Monitor System) w/Device kit USE TO CHECK GLUCOSE THREE TIMES DAILY 1 kit 025 Active glucose blood test strip USE 1 STRIP TO CHECK GLUCOSE THREE TIMES DAILY 100 each 5 025 Active Ozempic, 1 MG/DOSE, 4 MG/3ML solution pen-injectorInd ications:Type 2 diabetes mellitus with other specified complication, with long-term current use of insulin INJECT 1MG SUBCUTANEOUSLY ONCE A WEEK 3 mL 025 Active Semaglutide, 1 MG/DOSE, (Ozempic, 1 MG/DOSE,) 4 MG/3ML solution pen-injectorInd ications:Type 2 diabetes mellitus with other specified complication, with long-term current use of insulin Inject 1 mg under the skin 1 (one) time per week. 3 mL 5 025 2024 Discontinued Active Problems Problem Noted Date Diagnosed [...] Encounters Date Type Department Care Team Description 05/21/2025 [facility] [address] [place] [phone] Paz Echeverria MD Type 2 diabetes mellitus with other specified complication, with long-term current use of insulin 03/08/2025 [facility] [address] [place] [phone] Paz Echeverria MD Type 2 diabetes mellitus with other specified complication, with long-term current use of insulin ([facility]) 03/05/2025 [facility] [address] [place] [phone] Marilyn Valencia APRN Type 2 diabetes mellitus with other specified complication, with long-term current use of insulin ([facility]) 03/05/2025 [facility] [address] [place] [address] Erica Ventura PA Prior-authorization/ins urance Verification from [...] [facility]-HIV Screening 1989 [facility]-Infant/Child/Adol SDOH Screenings 1989 [id number] Vaccine (#1) 1994 Diabetes: Dental Exam 1999 [...] of insulin ([facility]) CYTO DATA CONVERSION Routine 10/29/2014 12:00 AM EDT from Last 3 Months or Most Recently Relevant to Health Maintenance Results * (ABNORMAL) POCT glycosylated hemoglobin (Hb A1C) (05/23/2024 11:03 AM EST) POCT Hemoglobin A1C 5.8 <5.7% Non-Diabe tic % [facility] Kit Lot Number [id number] [facility] Kit Expiration Date 03/17/2026 [facility] Blood Venous blood specimen / Unknown 05/23/2024 11:03 AM EST us Erica MENDEZ POINT OF CARE TEST EN TER/EDIT ORDERABLES Final Result Performing Organization Address City/State/[facility] Co de Phone Number [facility] [address] [place] [address] * Cytology (10/29/2014 12:00 AM EDT) 10/29/2014 10/31/2014 12: 33 PM EDT Narrative [facility] - 11/06/2014 11:15 AM EDT [facility] MR #: [id number] [facility] [place] [address] 1990 (Age: 24) FW Collect Date: 10/29/2014 00:00 Receipt Date: 10/31/2014 12:33 Page 1 DEPARTMENT OF PATHOLOGY AND LABORATORY MEDICINE CYTOPATHOLOGY REPORT Email: [email or web address] ATTENDING MD/Practitioner: John Celestin APRN Service: PAT Location: OUTS Reported: 11/06/2014 11:15 Collected: 10/29/2014 00:00 INTERPRETATION A. THIN PREP (CERVICAL/VAGINAL): NEGATIVE FOR INTRAEPITHELIAL LESION OR MALIGNANCY. SATISFACTORY FOR EVALUATION; ENDOCERVICAL/ TRANSFORMATION ZONE COMPONENT PRESENT. Slide scanned and imaged by [employer] ThinPrep Imaging System with manual review of [...] results is suggested (please call Microbiology at [phone] for results). CLINICAL INFORMATION: Menstrual History: Cyclic Date of Last Menstrual Period: 10/03/14 Other Clinical Conditions: If ASCUS and > 24 years of age, HPV/DNA testing requested. SPECIMEN DESCRIPTION: A: THIN PREP (CERVICAL/VAGINAL) THIN PREP PROCESS CELLULAR ENHANCEMENT ICD: F: A; RT IMAGE [id number] SNOMED CODES: A; [id number] [id number] In cases where a pathologist has signed out the report, the service has been rendered in part by a resident. The signing pathologist has performed and is responsible for the reported pathologic evaluation. us Historical Provider LAB PATHOLOGY ORDERABLES Fin al Result SUNQUEST from Last 3 Months or Most Recently Relevant to Health Maintenance Insurance [facility] MEDICAID Care Teams High Heel Builder Relationship Specialty Start Date End Date Jaquan Conley MD [address] [place], [place] [id number] [facility] - General 11/28/20
--- OUTSIDE RECORDS SUMMARY | 2025-05-30 11:30 | XMS_ITS | Encounter Summary ---
Author Organization [employer] ([place], [place], [place], [place], [place]) Address [address] [place] [address] Care Team Providers Care Dermatopathologist Name Role Phone Unavailable Primary Care Provider Unavailabl e Encounter Details Date Type Department Care Team (Late st Contact Info) Description 11/19/2018 Transcribed Document [facility] [place] [facility] [address] [place] [address] ProviderLaury MD [address] [place] [address] Social History Tobacco Use Types Packs/Day [...] Laury ProviderMD - 11/19/2018 1:52 AM CDT [facility] ADDRESS [place], [place] [phone] Name:Crystal Archer Visit Date:11/18/2018 20:06:00 Emergency Department Care Providers: Physician: Clara Elias Phys Asst Physician: Our doctors and staff appreciate your choice of [facility] for your emergency medical care. Read these instructions carefully. Please call us if you have any questions about your medical problem. [facility] Emergency Department [phone] [facility] Emergency Department [phone] [facility] Emergency [facility] [phone] Patient Education Materials Surendradarvin Crystal Jones has been given the following [...] start to feel better. ??? Only take xnkb-kjs-dnwcwcc or prescription medicines for pain, discomfort, or [...] 01/29/2014 Elsevier Interactive Patient Education ? 2017 [employer] Obstetrics and Gynecology Urinary Tract Infection, Adult Introduction A urinary tract infection (UTI) is an infection of any part of the urinary tract. The urinary tract includes the: ??? Kidneys. ??? Ureters. ??? Bladder. ??? Urethra. These organs make, store, and get rid of pee (urine) in the body. Follow these instructions at home: ??? Take bfoe-ylm-oewiftw and prescription medicines only as told by [...] o [facility] # [phone] o [facility] # [phone] o [facility] [place] [facility] # [phone] ?? If you had cultures done and [...] quit. o National Network of Tobacco Cessation [id number]-[id number]-NOW o [place] [employer] o [place] [employer] [phone] o Sai/Manuel Mccray [phone] FINANCIAL INFORMATION ?? [facility] provides financial counseling to anyone who requests our services. ?? Emergency Physicians are independently contracted to provide your care. You will receive a bill for the care provided to you by the Physician and/or the Physician Shampoo Assistant. This will be a separate bill [...] Patient Education Materials: ENT Otitis Media, Adult, Zqgt-jo-Kzml Obstetrics and Gynecology Urinary Tract Infection, Adult, Nclo-in-Kumn Follow-Up Instructions: Follow Up With: Where: When: [...] recommended Patient Signature / or Patient Safety Representative Provider Signature Date documented in this encounter Plan of Treatment Not on file documented as of this encounter Visit Diagnoses Not on filedocumented in this encounter
--- OUTSIDE RECORDS SUMMARY | 2025-05-30 11:30 | XMS_ITS | Encounter Summary ---
Author Organization [facility] Address [address], [address] [place] [address] Care Team Providers Care Geospatial Analyst Name Role Phone Jaquan Conley MD Primary Care Provider [phone] Reason for Referral * Imaging (Emergency) - Closed Specialty Diagnoses / Procedures Referred By Contac t Referred To Contact Radiology Diagnoses Urinary retention Procedures US RENAL COMPLETE Yue Abdalla APRN [address] [place] [address] Phone: tel: Referral ID Status Reason Start Date Expiration Date Visits Re quested Visits Authorized [id number] Closed 01/09/2021 01/09/2022 1 1 Encounter Details Date Type Department Care Team (Latest Contact Info) Description 01/09/2021 Transcribe Orders [facility] PRE ACCESS [address] [place] [address] Yue Abdalla APRN [address] [place] [address] Urinary retention (Primary Dx) Social [...] abnormality of the kidneys or urinary bladder. [facility] Rm MUSIC AGENT [facility] US ORDERABLES Final Result documented in this encounter Visit Diagnoses Diagnosis Urinary retention- Primary Retention of urine, unspecified Urinary retention Retention of urine, unspecified documented in this encounter Care Teams Geospatial Analyst Relationship Specialty Start Date End Date Jaquan Conley MD [address] [place] [address] PCP - General Internal Medicine 01/09/21 documented as of this encounter
--- OUTSIDE RECORDS SUMMARY | 2025-05-30 11:30 | XMS_ITS | Encounter Summary ---
Author Organization [employer] ([place], [place], [place], [place], [place]) Address [address] [place] [address] Care Team Providers Care Upset Welding Machine Operator Name Role Phone Unavailable Primary Care Provider Unavailabl e Encounter Details Date Type Department Care Team (Late st Contact Info) Description 01/07/2020 Transcribed Document [facility] [place] Family Medicine [address] [place] [address] ProviderLaury MD [address] [place] [address] Social History Tobacco Use Types Packs/Day [...] for Hospitalization is a 29-year-old patient with halfway history of morbid obesity and CKD, has [...] Int Units = 1 Cap, Oral, Weekly [place] 7.5/325 oral every 6 hours as needed for pain. Zofran 8mg oral every 12 hours as needed for nausea. Prilosec 20mg oral daily. Starts tomorrow. [2] Code Status No Code Status Order on Record Condition on Discharge Stable Consulting Physicians LARRY JAIMES MD-ANS Current Diet Order No qualifying data available. Patient Discharge Summary Orders Discharge Follow Up Instructions: followup next weekCall for [id number] Follow Up Instructions: call office on tuesday [...] Instructions; OCTAVIO BRAND RN 01/05/2020 13:45 EDT Electronically signed by Zuleyka Byrd Conversion Fire Prevention Bureau Captain Cerner at 11/02/2022 10:08 AM CDT documented in this encounter Plan of Treatment Not on file documented as of this encounter Visit Diagnoses Not on filedocumented in this encounter
--- OUTSIDE RECORDS SUMMARY | 2025-05-30 11:30 | XMS_ITS | Encounter Summary ---
Author Organization [employer] ([place], [place], [place], [place], [place]) Address [address] [place] [address] Care Team Providers Care Delicatessen Department Manager Name Role Phone Unavailable Primary Care Provider Unavailabl e Encounter Details Date Type Department Care Team (Late st Contact Info) Description 09/28/2019 Transcribed Document [facility] [place] [facility] Family Medicine [address] [place] [address] ProviderLaury MD [address] [place] [address] Social History Tobacco Use Types Packs/Day [...] Policy Numbers : Insurance 1 Health Plan[facility] Policy Number: [id number] Authorization Number: Insurance Primary Name : [facility] Policy Number: [id number] Authorization Status-Primary : Admit approved Reference Number-Primary : [id number] Authorization Number-Primary : [id number] Number of Days Authorized-Primary : 0 Day(s) [...]
--- OUTSIDE RECORDS SUMMARY | 2025-05-30 11:30 | XMS_ITS | Encounter Summary ---
Author Organization [facility] Address [address] [place] [address] Care Team Providers Care Load Builder Name Role Phone Jaquan Conley MD Primary Care Provider [phone] Encounter Details Date Type Department Care Team (Late st Contact Info) Description 10/18/2018 [facility] Historical OTTR [address] [place] [address] Yris Schwarz, RN [facility]-TRANSPLANT ADMINISTRATION Social History [...] in nephrology clinic note that she left [facility] after admission for increasing creatinine and e. coli UTI, consider starting with social work. She also initially stated didn't want to pursue kidney transplant if she couldn't get a pancreas at same time. * Progress Notes - Hilaria Hsu - 08/16/2018 9:25 AM EST Start eval with ; pt left [facility] per [facility] records. Pt has been 5 times; has 2 children, one of which is in [place] with her latest . documented in this encounter Plan of Treatment Not on file documented as of this encounter Visit Diagnoses Not on filedocumented in this encounter Care Teams Load Builder Relationship Specialty Start Date End Date Jaquan Conley MD [address] [place] [address] PCP - General 11/28/20 documented as of this encounter
--- OUTSIDE RECORDS SUMMARY | 2025-05-30 11:30 | XMS_ITS | Encounter Summary ---
Author Organization [employer] ([place], [place], [place], [place], [place]) Address [address] [place] [address] Care Team Providers Care Floors Buffer Name Role Phone Unavailable Primary Care Provider Unavailabl e Encounter Details Date Type Department Care Team (Late st Contact Info) Description 12/28/2019 Transcribed Document [facility] Family Medicine [address] [place] [address] ProviderLaury MD [address] [place] [address] Social History Tobacco Use Types Packs/Day [...] Policy Numbers : Insurance 1 Health [facility] Policy Number: [id number] Authorization Number: Insurance Primary Name : [facility] Policy Number: [id number] Authorization Status-Primary : Admit approved Reference Number-Primary : [id number] Authorization Number-Primary : [id number] Number of Days Authorized-Primary : 0 Day(s) [...]
--- OUTSIDE RECORDS SUMMARY | 2025-05-30 11:30 | XMS_ITS | Encounter Summary ---
Author Organization [employer] ([place], [place], [place], [place], [place]) Address [address] [place] [address] Care Team Providers Care Photo Cartographer Name Role Phone Unavailable Primary Care Provider Unavailabl e Encounter Details Date Type Department Care Team (Late st Contact Info) Description 10/31/2018 Transcribed Document [facility] Family Medicine [address] [place] [address] ProviderLaury MD [address] [place] [address] Social History Tobacco Use Types Packs/Day [...] Complaint Primary Care Provider : Rema Ferreira, Pharmacy Graduate Intern Accompanied By : Family/Spouse/SO Arrival Mode : [...] : No GI 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 : No Breaker Up Machine Operator Hx : No Heart Attack [...] Source : Stated Height Entry Format : [place] Height, Inches : 65 Inch(Converted to: 5 ft 5 Inch, 165.10 cm) Clinical Height : 165.1 cm Weight Source : Stated Type of Weight Measurement Est : [place] Weight, est lb : 214 lb Estimated Clinical Dosing Weight : 97.27 kg [place] Body Weight : 57 kg Body Surface Area Estimated : 2.11 m2 Body Mass Index Estimated : 35.68 kg/m2 summer10/30/2018 20:29 EDT Medication List ED Medications Reviewed : Yes Source of Information : Patient summer10/30/2018 20:29 EDT Medication List (As Of: [...] ; Status: Processing ; Ordered As Mnemonic: [place] 5 mg-325 mg oral tablet ; Simple [...]
--- OUTSIDE RECORDS SUMMARY | 2025-05-30 11:30 | XMS_ITS | Encounter Summary ---
Author Organization [employer] ([place], [place], [place], [place], [place]) Address [address] [place] [address] Care Team Providers Care Technician Telecommunication Systems Name Role Phone Unavailable Primary Care Provider Unavailabl e Encounter Details Date Type Department Care Team (Late st Contact Info) Description 01/08/2019 Transcribed Document [facility] [place] [address] [place] [address] ProviderLaury MD [address] [place] [address] Social History Tobacco Use Types Packs/Day [...] Laury ProviderMD - 01/08/2019 12:31 AM CDT [facility] ADDRESS [place], [place] [phone] Name:Crystal Archer Visit Date:01/07/2019 18:52:00 Emergency Department Care Providers: Physician: Physician: Our doctors and staff appreciate your choice of [facility] for your emergency medical care. Read these instructions carefully. Please call us if you have any questions about your medical problem. [facility] Emergency Department [phone] [facility] Emergency Department [phone] [facility] Emergency Department [phone] Patient Education Materials Gianni Crystal Jones has [...] pick them up o [facility] # [phone] o [facility] # [phone] o [facility] # [phone] ?? If you had cultures done and [...] quit. o National Network of Tobacco Cessation [id number]-NOW o [place] Lung Association o [place] Heart Association [phone] o Sai/Manuel Mahendra [phone] FINANCIAL INFORMATION ?? [facility] provides financial counseling to anyone who requests our services. ?? Emergency Physicians are independently contracted to provide your care. You will receive a bill for the care provided to you by the Physician and/or the Physician Propulsion Motor And Generator Repairer. This will be a separate bill [...] as recommended Patient Signature / or Patient Shot Dropper Provider Signature Date documented in this encounter Plan of Treatment Not on file documented as of this encounter Visit Diagnoses Not on filedocumented in this encounter
--- OUTSIDE RECORDS SUMMARY | 2025-05-30 11:30 | XMS_ITS | Encounter Summary ---
Author Organization [employer] ([place], [place], [place], [place], [place]) Address [address] [place] [address] Care Team Providers Care R&D Lab Technician Name Role Phone Unavailable Primary Care Provider Unavailabl e Encounter Details Date Type Department Care Team (Late st Contact Info) Description 01/18/2020 Transcribed Document [facility] Family Medicine [address] [place] [address] ProviderLaury MD [address] [place] [address] Social History [...] Communication Barrier : None Primary Language : Sri Lankan Any Spiritual/Cultural Needs or Requests : No [...] exceptions (Comment: patient had gastric sleeve on 16. patient has been vomiting. [JASON FUENTES RN - 01/18/2020 21:30 EDT] ) Gastrointestinal Symptoms : Abdominal pain JASON FUENTES RN - 01/18/2020 21:30 EDT Electronically signed by [facility] Conversion Corporate Secretary Cerner at 11/02/2022 10:12 AM CDT documented in this encounter Plan of Treatment Not on file documented as of this encounter Visit Diagnoses Not on filedocumented in this encounter
--- OUTSIDE RECORDS SUMMARY | 2025-05-30 11:30 | XMS_ITS | Encounter Summary ---
Author Organization [employer] ([place], [place], [place], [place], [place]) Address [address] [place] [address] Care Team Providers Care Radiation Officer Name Role Phone Unavailable Primary Care Provider Unavailabl e Encounter Details Date Type Department Care Team (Late st Contact Info) Description 01/05/2020 Transcribed Document [facility] [place] [address] [place] [address] ProviderLaury MD [address] [place] [address] Social History Tobacco Use Types Packs/Day [...] On: 01/05/2020 8:27 EDT by CRISTOBAL HANSEN, RN-Impress Associate Initial Assessment I Previously Documented Living Environment [...] have PCP Listed? : Yes CRISTOBAL HANSEN RN-Impress Associate - 01/05/2020 8:27 EDT Initial Assessment II [...] : Discharge transportation, Outpatient services CRISTOBAL HANSEN RN-Impress Associate - 01/05/2020 8:27 EDT Narrative Note Narrative Note : Patient underwent laparoscopic gastrectomy sleeve. Lives at home with family, iADLs. Plan is to return home at vt, no services needed..................sds CRISTOBAL HANSEN RN-Impress Associate - 01/05/2020 8:27 EDT documented in this encounter Plan of Treatment Not on file documented as of this encounter Visit Diagnoses Not on filedocumented in this encounter
--- OUTSIDE RECORDS SUMMARY | 2025-05-30 11:30 | XMS_ITS | Encounter Summary ---
Author Organization [employer] ([place], [place], [place], [place], [place]) Address [address] [place] [address] Care Team Providers Care Weed Thinner Name Role Phone Unavailable Primary Care Provider Unavailabl e Encounter Details Date Type Department Care Team (Late st Contact Info) Description 01/08/2019 Transcribed Document [facility] [place] Family Medicine [address] [place] [address] ProviderLaury MD [address] [place] [address] Social History Tobacco Use Types Packs/Day [...] Laury ProviderMD - 01/08/2019 12:31 AM CDT [facility] ADDRESS [place], [place] [phone] Name:Crystal Archer Visit Date:01/07/2019 18:52:00 Emergency Department Care Providers: Physician: Physician: Our doctors and staff appreciate your choice of [facility] for your emergency medical care. Read these instructions carefully. Please call us if you have any questions about your medical problem. [facility] Emergency Department [phone] [facility] Emergency Department [phone] [facility] Emergency Department [phone] Patient Education Materials Gianni Crystal Jones has [...] them up o [facility] # [phone] o [facility] # [phone] o [facility] # [phone] ?? If you had cultures done and [...] quit. o National Network of Tobacco Cessation [id number]-IZKX-NOW o [place] Lung Association o [employer] Heart Association [phone] o Sai/Manuel Mahendra [phone] FINANCIAL INFORMATION ?? [facility] provides financial counseling to anyone who requests our services. ?? Emergency Physicians are independently contracted to provide your care. You will receive a bill for the care provided to you by the Physician and/or the Physician Mirror Silverer. This will be a separate bill from [...] No follow up information was provided. I, Gianni Crystalabi Jones, have received a copy of these discharge instructions and acknowledge understanding of these instructions. . I understand that my condition may require more care and will arrange for further treatment as recommended Patient Signature / or Patient Box Packer Provider Signature Date Date/Time 01/07/2019 20:31 [facility] [...]
--- OUTSIDE RECORDS SUMMARY | 2025-05-30 11:30 | XMS_ITS | Encounter Summary ---
Author Organization [employer] ([place], [place], [place], [place], [place]) Address [address] [place] [address] Care Team Providers Care Window Machine Operator Name Role Phone Unavailable Primary Care Provider Unavailabl e Encounter Details Date Type Department Care Team (Late st Contact Info) Description 01/04/2020 Transcribed Document [facility] [address] [place] [address] ProviderLaury MD [address] [place] [address] Social History Tobacco Use Types Packs/Day [...] Policy Numbers : Insurance 1 Health Plan: [facility] Policy Number: [id number] Authorization Number: [id number] Insurance Primary Name : [facility] Policy Number: [id number] Authorization Status-Primary : Admit approved Reference Number-Primary : [id number] Authorization Number-Primary : [id number] Number of Days Authorized-Primary : 0 Day(s) [...]
--- OUTSIDE RECORDS SUMMARY | 2025-05-30 11:30 | XMS_ITS | Encounter Summary ---
Author Organization [facility] Address [address] [place] [address] Care Team Providers Care Railway Track Worker Name Role Phone Jaquan Conley MD Primary Care Provider + [phone] Encounter Details Date Type Department Care Team (Late st Contact Info) Description 11/10/2018 [facility] Encounter Historical OTTR [address] [place] [address] Yris Schwarz, RN [facility]-TRANSPLANT ADMINISTRATION Social History [...] . She stated she is going to [facility] because they told her she [...] EDT SW received message from [facility] hands and dial inspector that the pt contacted her to cancel psych appt, as she has decided to pursue listing at [facility], instead of . Note to Coord. and Baling Machine Tender for awareness. * Progress Notes - MárquezIndira - 11/09/2018 4:12 PM EDT Mailed 11/24/18 [facility] eval appt schedule w/ map to pt. * Progress Notes - Daisy Gaming LCSW - 11/08/2018 8:09 AM EDT Per [facility] Baling Machine Tender, pt has an appt with [facility] on 11/24/18 at 1:30 pm. Note [...] follow. * Progress Notes - Daisy Gaming, NON PROFIT JOB TITLES - 10/20/2018 9:03 AM EDT has emailed [...] made between 9 and 12 due to home child care provider issues. Forwarding communication to . * Progress [...] However, pt is also considering going to [facility] since she was told they [...] to this appt. * Progress Notes - nIdira Márquez - 09/13/2018 9:04 AM EST Per Daisy, pt's SW consult needs to be r/s'd to October. Pt's 09/13/18 SW consult has been r/s'd to 10/17/18 @ 0830. Updated APM, SCM, OTTR, and [place]. Will call pt and mail updated ppw. [...] from pt asking for call back at [phone] to talk about a living donor. Called and spoke w/ pt. States she has several potential living donors and they have questions about the process, testing, and requirements. Informed pt that her potential living donors can call [phone] to discuss this and receive more info, [...] packet to pt and cc'd referring MD. RUSTS [phone] [id number] 81. documented [...] on filedocumented in this encounter Care Teams Railway Track Worker Relationship Specialty Start Date End Date Jaquan Conley MD [address] [place] [address] PCP - General 11/28/20 documented as of this encounter
--- OUTSIDE RECORDS SUMMARY | 2025-05-30 11:30 | XMS_ITS | Encounter Summary ---
Author Organization [employer] ([place], [place], [place], [place], [place]) Address [address] [place] [address] Care Team Providers Care Sagger Filler Name Role Phone Unavailable Primary Care Provider Unavailabl e Encounter Details Date Type Department Care Team (Late st Contact Info) Description 12/24/2018 Transcribed Document [facility] [place] [address] [place] [address] ProviderLaury MD [address] [place] [address] Social History Tobacco Use Types Packs/Day [...] Laury ProviderMD - 12/24/2018 7:19 PM CDT [facility] Emergency Department Depart Summary PERSON INFORMATION Name Crystal Archer Age 28 Years 1990 Sex Female Language PCP Marital Status Phone [phone] Visit Id Visit Reason Specialty Enc Type Emergency Med Service Referred by Track Group [facility] Discharge Tracking Id [id number] Checkout 12/24/2018 15:19:27 Checkin 12/24/2018 15:01:00 Acuity 4 - Non-urgent [facility] Dispo Type Arrival 12/24/2018 15:01:00 Reg Status LOS 000 00:18 Address: [address] [place] [address] [place] [address] POWERFORMS PHYSICIAN NOTES VITALS INFORMATION Vital Sign Triage Temp 98.6 Temp Route Oral/Mouth Pulse Rate 101 Respiratory Rate 20 Blood Pressure 179/ 89 LOCATION INFORMATION Arrival Nurse Unit Room Bed 12/24/2018 15:01:00 [facility] ED Waitroom ([facility]) 12/24/2018 15:04:15 [facility] ED 1 12/24/2018 15:19:27 [facility] ED Checkout ([facility]) MEDICAL INFORMATION Allergy Info: No Known [...]
--- OUTSIDE RECORDS SUMMARY | 2025-05-30 11:30 | XMS_ITS | Clinical Summary ---
Author Organization [facility] Address [address] [place] [address] Care Team Providers Care Scale Clerk Name Role Phone Yang Maria A Doyle APRN Primary Care Provider [phone] Allergies Active Allergy Reactions Criticality Noted Date [...] Daily. Active vitamin D (ERGOCALCIFEROL) 1.25 MG (14578 UT) capsule capsule Take 1 capsule by [...] her transplant medical team at [facility] this morning with her symptoms set. She [...] Plan (10/04/2024 3:33 PM EDT): Valuated in [facility] for the same approximately 1 month [...] 2023 she received a call from the [facility] that they had a match for her [...] daily. Continues to be followed closely by [facility] transplant as well as Dr. Stevens at [facility]. Assessment & Plan (08/22/2024 11:22 AM EST): On December 02, 2023 she received a call from the [facility] that they had a match for her [...] daily. Continues to be followed closely by [facility] transplant as well as Dr. Stevens at [facility] locally. Assessment & Plan (06/07/2024 12:35 PM EST): Patient last evaluated in our office a little over 1 year ago in April 2023. At that time she was suffering from end-stage renal disease due to diabetic nephropathy, performing home peritoneal dialysis nightly. On December 02, 2023 she received a call from the [facility] that they had a match for her [...] daily. Continues to be followed closely by [facility] transplant as well as Dr. Stevens at [facility] locally. Annual physical exam 03/15/2023 Cervical cancer screening 03/15/2023 Type 2 diabetes mellitus wit h hyperglycemia, with long-term current use of insulin 02/15/2023 Assessment & Plan (02/25/2025 7:41 AM EDT): Patient followed by endocrinology at the [facility]. Patient currently utilizes insulin pump and GCS [...] followed by Dr. Stevens at [facility]. Working towards renal transplant with [facility].. Assessment & Plan (03/15/2023 5:10 PM EDT): Etiology of end-stage renal disease appears to be hypertensive nephrosclerosis as well as diabetic nephropathy. She was a noncompliant type I diabetic for many years, diagnosed at the age of 12. She is currently performing home peritoneal dialysis nocturnally 6 days/week. Working towards renal transplant with [facility]. [facility] Assessment & Plan (02/15/2023 3:01 PM EDT): Etiology of end-stage renal disease appears to be hypertensive nephrosclerosis as well as diabetic Nephropathy. She was a noncompliant type I diabetic for many years, diagnosed at the age of 12. She is currently performing home peritoneal dialysis nocturnally 6 days/week. Working towards renal transplant with [facility]. To pursue transplant services at [facility] as well but finances are making [...] therapy for quite some time by her deburr technician. Patient has not been on GLP-1 for [...] been started on GLP-1 therapy by her deburr technician and is back down to 157 pounds [...] of 107. She reports she saw her heel gummer who wanted to increase her blood pressure medications but she refused stating she knew she stopped the medications her blood pressure would return to normal. She is now off both BuSpar and venlafaxine with blood pressure 110/74 in office today. Patient feels her mood is stable currently without medications due to some decrease stressors in the home. Her ummzri-[id number]-rgn with whom she help caregive from Jones's disease, decreasing some of her personal obligations. [...] to that presentation she was evaluated at [facility] with respiratory issues, tested negative [...] sneezing. She was a originally evaluated at [facility] over 1 week ago with [...] parasites and C. difficile toxin. 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 02/15/2023 06/07/2024 [...] Description 03/08/2025 2:15 PM EDT Office Visit [facility] [address] [place] [address] DR DELEON, URIEL [address] Maria A Soria, WAFER FAB OPERATOR Sore throat (Primary Dx); Strep pharyngitis 03/08/2025 Travel from Last 3 Months Immunizations Immunization [...] A&B AG, Veritor (03/08/2025 1:57 PM EDT) [facility] SARS Antigen Not Detected Not Detected, Presumptive Negative Influenza A Antigen DANICA Not Detected Not Detected Influenza B Antigen DANICA Not Detected Not Detected Internal Control Passed Passed Lot Number [id number] Expiration Date Swab 03/08/2025 1:57 PM EDT Maria A Soria APRN POINT OF CARE TEST ORDERABL ES Final Result * POC Rapid Strep A (03/08/2025 1:57 PM EDT) [facility] Rapid Strep A Screen Negative Negative, VALID, INVALID, Not Performed [facility] Internal Control Passed Passed [facility] Lot Number [id number] [facility] Expiration Date [facility] Swab 03/08/2025 1:57 PM EDT Maria A Soria APRN POINT OF CARE TEST ORDERABL ES Final Result [facility]
[address] [place] [address], * POC Glycosylated Hemoglobin (Hb A1C) (02/22/2025 10:26 AM EDT) [facility] Hemoglobin A1C 5.6 4.5 - 5.7 % [facility] Lot Number [id number] [facility] Expiration Date , [facility] Blood 02/22/2025 10:2 6 AM EDT Maria A Soria APRN POINT OF CARE TEST ORDERABL ES Final Result [facility]
[address] [place] [address], [place] [phone] * Lipid Panel (08/22/2024 9:48 AM EST) [...] 9:48 AM EST 08/22/2024 Comment:Blood Release to [facility] Narrative [facility] ([facility]) - 08/23/2024 9:07 AM EST Performed at: 01 - [facility] [id number] Senior Media Planner: Jacob Whaley PhD, Phone: [phone] Maria A Soria APRN LAB BLOOD ORDERABLES Final Result Performing Organization Address [facility]/ZIP Co de Phone Number [facility] [address] [place] [address], [facility] [address] [place] [address], * Hepatitis C Antibody (07/23/2019 10:03 AM EST) Hepatitis C Ab Non-Reacti ve Non-Reacti ve 07/23/2019 6:31 PM EST [facility] Blood Venipuncture / Unknown 07/23/2019 10:03 AM EST 07/23/2019 10:38 AM EST Mukul Stevens MD LAB BLOOD ORDERABLES F inal Result [facility]
[address] [place] [id number], from Last 3 Months or Most Recently [...] pulse or is breathing): Full Care Teams Scale Clerk Relationship Specialty Start Date End Date Maria A Soria APRN [address] [place] [address] PCP - General Family Medicine 02/15/23
--- OUTSIDE RECORDS SUMMARY | 2025-05-30 11:30 | XMS_ITS | Encounter Summary ---
Author Organization [employer] ([place], [place], [place], [place], [place]) Address [address] [place] [address] Care Team Providers Care Chief Green Officer Name Role Phone Unavailable Primary Care Provider Unavailabl e Encounter Details Date Type Department Care Team (Late st Contact Info) Description 08/24/2019 Transcribed Document [facility] [place] [address] [place] [address] ProviderLaury MD [address] [place] [address] Social History Tobacco Use Types Packs/Day [...] - Historical ProviderMD - 08/24/2019 11:11 AM PERSONAL DEVELOPMENT EDUCATOR [facility] IntraOp Summary Primary Physician: LARRY MARTINES MD-SUR Finalized Date/Time: 08/24/19 12:55:12 Pt. Name: FREDDIE RUGGIERO FELICIA /Sex: 1990 Female Med Rec #: [id number] Physician: LARRY MARTINES MD-SUR Financial #: [id number] Pt. Type: O Room/Bed: [facility] Admit/Disch: 08/24/19 09:42:00 - Institution: [facility] - Case Attendance Entry 1 Entry 2 Entry 3 Case Attendee LARRY MARTINES Childress, TOBI J, RN ELLIOTT MOURA TECH MD-SUR Role Performed Surgeon/Proceduralist, Support Teacher, First Scrub, First First Time In 08/24/19 11:09:00 08/24/19 11:09:00 08/24/19 11:09:00 Time Out 08/24/19 11:15:00 08/24/19 11:15:00 08/24/19 11:15:00 Procedure Gastric Biopsy Esophagogastroduodenosco Esophagogastroduodenosco py, Gastric Biopsy py, Gastric Biopsy Other Attendee Superficial Wound Closed By: Last Modified By: ANGE Green RN Childress, TOBI J, RN Childress, TOBI J, RN 08/24/19 11:14:47 08/24/19 11:14:47 08/24/19 11:14:47 Entry 4 Case Attendee MARGRET MCCULLOUGH BEHAVIORAL HEALTH WORKER Role Performed BEHAVIORAL HEALTH WORKER/Nurse Supervisor Powder [employer] Canning Time In 08/24/19 11:09:00 Time Out 08/24/19 11:15:00 Procedure Esophagogastroduodenosco py, Gastric Biopsy Other Attendee Superficial Wound Closed By: Last Modified By: ANGE Green RN 08/24/19 11:14:47 [facility] - Case Attendance Audit 08/24/19 11:14:47 Furnace Process Plant Operator: GEOVANNA Modifier: [email or web address] 1 <+> Time Out 1 <*> Procedure Gastric Biopsy 2 <+> Time Out 2 <*> Procedure Esophagogastroduodenoscopy, Gastric Biopsy 3 <+> Time Out 3 <*> Procedure Esophagogastroduodenoscopy, Gastric Biopsy 4 <+> Time Out 4 <*> Procedure Esophagogastroduodenoscopy, Gastric Biopsy 08/24/19 11:12:38 Furnace Process Plant Operator: [email or web address] Modifier: [email or web address] <+> 1 Procedure 2 <*> Procedure Esophagogastroduodenoscopy 3 <*> Procedure Esophagogastroduodenoscopy 4 <*> Procedure Esophagogastroduodenoscopy 08/24/19 11:11:44 Furnace Process Plant Operator: HOLMESTJ Modifier: HOLMESTJ 2 <+> Time [...] Endo - Case Times Audit 08/24/19 11:13:59 Furnace Process Plant Operator: HOLMESTJ Modifier: HOLMESTJ <+> 1 Out Room Time <+> 1 Stop Time <+> 1 Stop Time 08/24/19 11:11:59 Furnace Process Plant Operator: HOLMESTJ Modifier: [email or web address] <+> 1 Start Time [facility] - Cultures and Spec Summary Entry 1 Cultrures and Specimens Specimen Ordered: Yes Last Modified By: ANGE Green RN 08/24/19 11:14:38 [facility] - Delays Entry 1 Delay Reason Other Duration 0 Minute(s) Comment NO DELAY Last Modified By: ANGE Green RN 08/24/19 11:09:48 [facility] - Delays Audit 08/24/19 11:09:48 Furnace Process Plant Operator: [email or web address] Modifier: [email or web address] <+> 1 Comment [...] Modified By: ANGE Green RN 08/24/19 11:09:51 [facility] - Fire Risk Assessment Entry 1 Fire Info Surgical Site or 1- Yes Incision Above the Xyphoid Open O2 Source 1- Yes (Mask or Cannula) Available Ignition 1- Yes (ESU, Laser, Light Source) Fire Risk 3 Assessment Score Fire Score Fire Risk Yes Assessment Complete Fire Risk ANGE Green drum carrier Verified By Fire Risk 08/24/19 11:10:00 Assessment Verified Date/Time Fire Risk High Risk Protocol Yes Implemented Standard Fire Yes Safety Precautions Followed Last Modified By: ANGE Green RN 08/24/19 11:10:04 [facility] - General Case Press Operator Apprentice 1 Case Information OR Endo 01 [facility] Case Level 1 Room Verified Yes Wound Class II - Clean-Contaminated Specialty SN General Anesthesia Type MAC ASA Class 3 Diagnosis Preop Diagnosis GERD Postop Same As Preop No Postop Diagnosis normal EGD Last Modified By: ANGE Green RN 08/24/19 11:11:13 [facility] - General Case Data Audit 08/24/19 11:14:21 Furnace Process Plant Operator: GEOVANNA Modifier: HOLMESTJ <+> 1 Postop Diagnosis [facility] - Intraoperative Assessment Entry 1 Valid History / Yes Physical in Chart Preoperative Yes Checklist Reviewed/Evaluated Allergies Reviewed Yes Patient is Latex No Sensitive Level of WDL Consciousness (WDL = Alert, Oriented to Person, Place, and Time) Present Upon IVs, ECG monitored Arrival to OR Prosthetic/Assistive Insulin pump Devices Last Modified By: ANGE Green RN 08/24/19 11:11:51 [facility] - Intraoperative Assessment Audit 08/24/19 12:55:06 Furnace Process Plant Operator: GEOVANNA Modifier: HOLMESTJ <+> 1 Prosthetic/Assistive Devices [facility] End[facility] - Intraoperative Equipment Entry 1 Type [...] Endo - Patient Positioning Audit 08/24/19 11:12:40 Furnace Process Plant Operator: GEOVANNA Modifier: [email or web address] 1 <*> Procedure [...] Endo - Sign Out Audit 08/24/19 11:14:13 Furnace Process Plant Operator: GEOVANNA Modifier: HOLMESTJ <+> 1 RN [...] TOBI J, RN 08/24/19 11:12:34 08/24/19 11:12:34 [facility] - Surgical Procedures Audit 08/24/19 11:14:04 Furnace Process Plant Operator: GEOVANNA Modifier: HOLMESTGiacomo <+> 1 Stop <+> 2 Stop [facility] End[facility] - Time Out Entry 1 Procedure [...] Modified By: ANGE Green RN 08/24/19 11:12:41 [facility] Endo - Time Out Audit 08/24/19 11:12:41 Furnace Process Plant Operator: GEOVANNA Modifier: HOLMESTJ 1 <*> Procedure to be Performed Esophagogastroduodenoscopy 08/24/19 11:12:26 Furnace Process Plant Operator: GEOVANNA Modifier: HOLMESTJ 1 <*> Beta Renae Administered [...] GEOVANNA Correct Documentation Electronically signed by Rochelle [facility] Conversion Training Associate Cerner at 11/02/2022 10:11 AM CDT documented in this encounter Plan of Treatment Not on file documented as of this encounter Visit Diagnoses Not on filedocumented in this encounter
--- OUTSIDE RECORDS SUMMARY | 2025-05-30 11:31 | XMS_ITS | Encounter Summary ---
Author Organization [employer] ([place], [place], [place], [place], [place]) Address [address] [place] [address] Care Team Providers Care Orange Picker Name Role Phone Unavailable Primary Care Provider Unavailabl e Encounter Details Date Type Department Care Team (Late st Contact Info) Description 08/03/2018 Transcribed Document [facility] [place] [address] [place] [address] ProviderLaury MD [address] [place] [address] Social History Tobacco Use Types Packs/Day [...] Laury ProviderMD - 08/03/2018 7:[address] [facility] [address] [place], [place] [phone] Name:Crystal Archer Visit Date:08/03/2018 13:52:00 Emergency Department Care Providers: Physician: MEGHA MAN Physician: Our doctors and staff appreciate your choice of [facility] for your emergency medical care. Read these instructions carefully. Please call us if you have any questions about your medical problem. [facility] Emergency Department [phone] [facility] Emergency Department [phone] [facility] Emergency Department [phone] Patient Education Materials Surendradarvin Crystal Jones has [...] x-ray department to pick them up o [facility] # [phone] o [facility] # [phone] o [facility] # [phone] ?? If you had cultures done and [...] quit. o National Network of Tobacco Cessation [id number] o [employer] o [employer] [phone] o Sai/Manuel Mccray [phone] FINANCIAL INFORMATION ?? [facility] provides financial counseling to anyone who requests our services. ?? Emergency Physicians are independently contracted to provide your care. You will receive a bill for the care provided to you by the Physician and/or the Physician Dowel Sander Operator. This will be a separate bill [...] as recommended Patient Signature / or Patient Edger Machine Helper Provider Signature Date Date/Time 08/03/2018 14:32 [facility] [...]
--- OUTSIDE RECORDS SUMMARY | 2025-05-30 11:31 | XMS_ITS | Encounter Summary ---
Author Organization [employer] ([place], [place], [place], [place], [place]) Address [address] [place] [address] Care Team Providers Care Oleo Hasher And Renderer Name Role Phone Unavailable Primary Care Provider Unavailabl e Encounter Details Date Type Department Care Team (Late st Contact Info) Description 09/07/2018 Transcribed Document [facility] [place] Family Medicine [address] [place] [address] ProviderLaury MD [address] [place] [address] Social History Tobacco Use Types Packs/Day [...] - Laury ProviderMD - 09/07/2018 9:31 PM [employer] [facility] Emergency Department Depart Summary PERSON INFORMATION Name Crystal Archer Age 28 Years 1990 Sex Female Language PCP Marital Status Phone [phone] Visit Id Visit Reason Specialty Enc Type Emergency Med Service Referred by Track Group [facility] Discharge Tracking Id [id number] Checkout 09/07/2018 16:31:16 Checkin 09/07/2018 15:20:00 Acuity 4 - Non-urgent [facility] Dispo Type Arrival 09/07/2018 15:20:00 Reg Status LOS 000 01:11 Address: [address] [place] [address] [facility] [place] [address] POWERFORMS PHYSICIAN NOTES VITALS INFORMATION Vital Sign Triage Temp 99.1 Temp Route Oral/Mouth Pulse Rate 61 Respiratory Rate 20 Blood Pressure 145/ 91 LOCATION INFORMATION Arrival Nurse Unit Room Bed 09/07/2018 15:20:00 [facility] ED Waitroom ([facility]) 09/07/2018 15:34:51 [facility] ED 9 09/07/2018 16:31:16 [facility] ED Checkout ([facility]) MEDICAL INFORMATION Allergy Info: No Known [...]
--- OUTSIDE RECORDS SUMMARY | 2025-05-30 11:31 | XMS_ITS | Encounter Summary ---
Author Organization [employer] ([place], [place], [place], [place], [place]) Address [address] [place] [address] Care Team Providers Care Foreign Banknote Teller Trader Name Role Phone Unavailable Primary Care Provider Unavailabl e Encounter Details Date Type Department Care Team (Late st Contact Info) Description 08/03/2018 Transcribed Document [facility] [place] Family Medicine [address] [place] [address] ProviderLaury MD [address] [place] [address] Social History Tobacco Use Types Packs/Day [...] - Laury ProviderMD - 08/03/2018 7:32 PM MANAGER [facility] ADDR[facility] [place], [place] [phone] Name:Crystal Archer Visit Date:08/03/2018 13:52:00 Emergency Department Care Providers: Physician: MEGHA MAN Physician: Our doctors and staff appreciate your choice of [facility] for your emergency medical care. Read these instructions carefully. Please call us if you have any questions about your medical problem. [facility] Emergency Department [phone] [facility] Emergency Department [phone] [facility] Emergency Department [phone] Patient Education Materials uSrendradarvin Crystal Jones has been given the following [...] x-ray department to pick them up o [facility] # [phone] o [facility] # [phone] o [facility] # [phone] ?? If you had cultures done and [...] quit. o National Network of Tobacco Cessation [id number]-GBLI-NOW o Iranian Lung Association o Iranian Heart Association [phone] o Sai/Manuel Mccray [phone] FINANCIAL INFORMATION ?? [facility] provides financial counseling to anyone who requests our services. ?? Emergency Physicians are independently contracted to provide your care. You will receive a bill for the care provided to you by the Physician and/or the Physician Engineering Program Manager. This will be a separate [...] as recommended Patient Signature / or Patient Dealership General Manager Provider Signature Date documented in this encounter Plan of Treatment Not on file documented as of this encounter Visit Diagnoses Not on filedocumented in this encounter
--- OUTSIDE RECORDS SUMMARY | 2025-05-30 11:31 | XMS_ITS | Encounter Summary ---
Author Organization [facility] Address [address] [place] [address] Care Team Providers Care Chief Counsel Name Role Phone Jaquan Conley MD Primary Care Provider [phone] Reason for Visit * Reason Comments Med Refill Encounter Details Date Type Department Care Team (Late st Contact Info) Description 09/25/2024 Refill [facility] - Transplantation Surgery [address] [address] Cb Forrester MD [address], [address] [place] [address] Social History Tobacco Use Types Packs/Day Years [...] on filedocumented in this encounter Care Teams Chief Counsel Relationship Specialty Start Date End Date Jaquan Conley MD [address] [place] [address] [place] [address] PCP - General Internal Medicine 09/18/20 documented as of this encounter
--- OUTSIDE RECORDS SUMMARY | 2025-05-30 11:31 | XMS_ITS | Encounter Summary ---
Author Organization [employer] ([place], [place], [place], [place], [place]) Address [address] [place] [address] Care Team Providers Care Cost Accounting Analyst Name Role Phone Unavailable Primary Care Provider Unavailabl e Encounter Details Date Type Department Care Team (Late st Contact Info) Description 09/26/2018 Transcribed Document [facility] [place] Family Medicine [address] [place] [address] ProviderLaury MD [address] [place] [address] Social History Tobacco Use Types Packs/Day [...] Laury ProviderMD - 09/26/2018 10:56 PM CDT [facility] ADDRESS [place], [place] [phone] Name:Crystal Archer Visit Date:09/26/2018 16:44:00 Emergency Department Care Providers: Physician: INDIO PEREA Physician: Our doctors and staff appreciate your choice of [facility] for your emergency medical care. Read these instructions carefully. Please call us if you have any questions about your medical problem. [facility] Emergency Department [phone] [facility] Emergency Department [phone] [facility] Emergency Department [phone] Patient Education Materials Crystal Archer Karen has [...] 07/04/2006 Document Revised: 12/09/2016 Document Reviewed: 03/04/2014 [employer] Interactive Patient Education ? 2017 [employer]. FOLLOW UP CARE Most conditions that [...] the x-ray department to pick them up [facility] # [phone] [facility] # [phone] o [facility] # [phone] ?? If you had cultures done and [...] quit. o National Network of Tobacco Cessation [id number]-KKNN-NOW o Lao Lung Association o Lao Heart Association [phone] o Sai/Manuel Mccray [phone] FINANCIAL INFORMATION ?? [facility] provides financial counseling to anyone who requests our services. ?? Emergency Physicians are independently contracted to provide your care. You will receive a bill for the care provided to you by the Physician and/or the Physician Wholesale Diamond Broker. This will be a separate bill from [...] as recommended Patient Signature / or Patient Water Pollution Scientist Provider Signature Date Electronically signed by Rochelle, [facility] Conversion Senior Cytogenetic Technologist Cerner at 10/19/2022 11:22 AM CDT documented in this encounter Plan of Treatment Not on file documented as of this encounter Visit Diagnoses Not on filedocumented in this encounter
--- OUTSIDE RECORDS SUMMARY | 2025-05-30 11:31 | XMS_ITS | Encounter Summary ---
Author Organization [employer] ([place], [place], [place], [place], [place]) Address [address] [place] [address] Care Team Providers Care Public Health Educator Name Role Phone Unavailable Primary Care Provider Unavailabl e Encounter Details Date Type Department Care Team (Late st Contact Info) Description 08/03/[address] [facility] [place] Family Medicine [address] [place] [address] ProviderLaury MD [address] [place] [address] Social History Tobacco Use Types Packs/Day [...] - Laury ProviderMD - 08/03/2018 6:[address]ISSIONER BBK Triage ED Entered On: 08/03/2018 14:06 EST Performed On: 08/03/2018 13:57 EST by ROSA FOSTER Triage Assessment Gynecologic Hx : N/A Medication Profile, Med Rec : Open ROSA FOSTER - 08/03/2018 14:10 EST Triage Date/Time : 08/03/2018 13:57 EST ROSA FOSTER - 08/03/2018 13:57 EST DCP GENERIC CODE Tracking Group : GM Nicolas Tracking Acuity : 3 - Urgent GM ROSA FOSTER 08/03/2018 13:57 EST ED Visit Reason : Urinary/Voiding Complaints Primary Care Provider : Jax Hsu Accompanied By : Family/Spouse/SO Arrival Mode : Ambulatory Chief Complaint : C/O low back pain, dysuria since 0430. D/CD from [facility] 07/22 AMA for UTI. Health History Reviewed [...] : No GI 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 : No Inside Sales Person Hx : No Heart Attack : No [...] Preferred Communication Mode : Verbal Languages : Australian Child/Parent Domestic Concerns : None Threats of Suicide : No ROSA FOSTER 08/03/2018 13:57 EST Height and Weight Height Source : Stated Height Entry Format : [place] Height, Inches : 65 Inch(Converted to: 5 ft 5 Inch, 165.10 cm) Clinical Height : 165.1 cm Weight Source : Stated Type of Weight Measurement Est : [place] Weight, est lb : 215 lb Estimated Clinical Dosing Weight : 97.73 kg [place] Body Weight : 57 kg Body Surface [...] - 08/03/2018 13:57 EST Electronically signed by Rochelle [facility] Conversion Double End Tenoner Setter Cerner at 10/19/2022 11:22 AM CDT documented in this encounter Plan of Treatment Not on file documented as of this encounter Visit Diagnoses Not on filedocumented in this encounter
--- OUTSIDE RECORDS SUMMARY | 2025-05-30 11:31 | XMS_ITS | Encounter Summary ---
Author Organization [employer] ([place], [place], [place], [place], [place]) Address [address] [place] [address] Care Team Providers Care Orbitread Operator Name Role Phone Unavailable Primary Care Provider Unavailabl e Encounter Details Date Type Department Care Team (Late st Contact Info) Description 11/19/2018 Transcribed Document [facility] [place] [address] [place] [address] ProviderLaury MD [address] [place] [address] Social History Tobacco Use Types Packs/Day [...] Laury ProviderMD - 11/19/2018 1:52 AM CDT [facility] ADDRESS [place], [place] [phone] Name:Crystal Archer Visit Date:11/18/2018 20:06:00 Emergency Department Care Providers: Physician: Clara Elias Phys Asst Physician: Our doctors and staff appreciate your choice of [facility] for your emergency medical care. Read these instructions carefully. Please call us if you have any questions about your medical problem. [facility] Emergency Department [phone] [facility] Emergency Department [phone] [facility] [place] [facility] Emergency Department [phone] Patient Education Materials Surendradarvin Crystal Jones has [...] start to feel better. ??? Only take zacn-jgo-wipptse or prescription medicines for pain, discomfort, or [...] 01/29/2014 Elsevier Interactive Patient Education ? 2017 [employer] Obstetrics and Gynecology Urinary Tract Infection, Adult Introduction A urinary tract infection (UTI) is an infection of any part of the urinary tract. The urinary tract includes the: ??? Kidneys. ??? Ureters. ??? Bladder. ??? Urethra. These organs make, store, and get rid of pee (urine) in the body. Follow these instructions at home: ??? Take oqps-obc-zywydmz and prescription medicines only as told by [...] [facility] # [phone] o [facility] # [phone] o [facility] # [phone] ?? If you had cultures done and [...] quit. o National Network of Tobacco Cessation [id number]-BENY-NOW o Citizen Of [place] Lung Association o Citizen Of [place] Heart Association [phone] o Sai/Manuel Mccray [phone] FINANCIAL INFORMATION ?? [facility] provides financial counseling to anyone who requests our services. ?? Emergency Physicians are independently contracted to provide your care. You will receive a bill for the care provided to you by the Physician and/or the Physician Field Crew Chief. This will be a separate bill from [...] Patient Education Materials: ENT Otitis Media, Adult, Spcm-gd-Xkma Obstetrics and Gynecology Urinary Tract Infection, Adult, Inxz-sv-Ebda Follow-Up Instructions: Follow Up With: Where: When: [...] as recommended Patient Signature / or Patient Eyeglass Assembler Provider Signature Date Date/Time 11/18/2018 21:52 [place] [...]
--- OUTSIDE RECORDS SUMMARY | 2025-05-30 11:31 | XMS_ITS | Encounter Summary ---
Author Organization [employer] ([place], [place], [place], [place], [place]) Address [address] [place] [address] Care Team Providers Care Creative Services Manager Name Role Phone Unavailable Primary Care Provider Unavailabl e Encounter Details Date Type Department Care Team (Late st Contact Info) Description 09/07/2018 Transcribed Document [facility] Family Medicine [address] [place] [address] ProviderLaury MD [address] [place] [address] Social History Tobacco Use Types Packs/Day [...] - Laury ProviderMD - 09/07/2018 9:31 PM HOUSE CLEANER [facility] ADDR[facility] [place], [place] [phone] Name:Crystal Archer Visit Date:09/07/2018 15:20:00 Emergency Department Care Providers: Physician: MEGHA MAN Physician: Our doctors and staff appreciate your choice of [facility] for your emergency medical care. Read these instructions carefully. Please call us if you have any questions about your medical problem. [facility] Emergency Department [phone] [facility] Emergency Department [phone] [facility] Emergency Department [phone] Patient Education Materials Gianni Crystal Jones has [...] 12/15/2006 Document Revised: 03/06/2017 Document Reviewed: 12/11/2014 ElseHuman Performance Integrated Systems Interactive Patient Education ? 2017 [employer]. FOLLOW UP CARE Most conditions that [...] them up o [facility] # [phone] o [facility] # [phone] o [facility] # [phone] ?? If you had cultures done and [...] quit. o National Network of Tobacco Cessation [id number]-JUHR-NOW o Tongan Lung Association o Tongan Heart Association [phone] o Sai/Manuel Mccray [phone] FINANCIAL INFORMATION ?? [facility] provides financial counseling to anyone who requests our services. ?? Emergency Physicians are independently contracted to provide your care. You will receive a bill for the care provided to you by the Physician and/or the Physician Mail Inserter. This will be a separate bill from [...] as recommended Patient Signature / or Patient Compressor Assembler Provider Signature Date documented in this encounter Plan of Treatment Not on file documented as of this encounter Visit Diagnoses Not on filedocumented in this encounter
--- OUTSIDE RECORDS SUMMARY | 2025-05-30 11:31 | XMS_ITS | Encounter Summary ---
Author Organization [employer] ([place], [place], [place], [place], [place]) Address [address] [place] [address] Care Team Providers Care Wireless Retail Manager Name Role Phone Unavailable Primary Care Provider Unavailabl e Encounter Details Date Type Department Care Team (Late st Contact Info) Description 09/07/2018 Transcribed Document [facility] [place] [address] [place] [address] ProviderLaury MD [address] [place] [address] Social History Tobacco Use Types Packs/Day [...] - Laury ProviderMD - 09/07/2018 8:23 PM MONEY MARKET CLERK BBK Triage ED Entered On: 09/07/2018 [...] : No GI 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 : No Viscose Department Worker Hx : No Heart Attack : [...] : Stated Height Entry Format : [place] Height, Inches : 65 Inch(Converted to: 5 ft 5 Inch, 165.10 cm) Clinical Height : 165.1 cm Weight Source : Stated Type of Weight Measurement Est : [place] Weight, est lb : 215 lb Estimated Clinical Dosing Weight : 97.73 kg [place] Body Weight : 57 kg Body Surface Area Estimated : 2.12 m2 Body Mass Index Estimated : 35.85 kg/m2 Silvia Cole, - 09/07/2018 15:23 EST Medication List ED Medications Reviewed : Yes Source of Information : Patient Silvia Cole, - 09/07/2018 15:23 EST Medication List (As Of: 09/07/2018 15:30:02 EST) Home Meds Status: Processing ; Ordered As Mnemonic: [place] 5 mg-325 mg oral tablet ; Simple [...]
--- OUTSIDE RECORDS SUMMARY | 2025-05-30 11:31 | XMS_ITS | Referral Summary ---
Author Organization [employer] ([place], [place], [place], [place], [place]) Address [address] [place] [address] Care Team Providers Care Physician Neonatology Name Role Phone Unavailable Primary Care Provider [...] Date Blaine rded Speak language other than Tongan at home Not on file 07/30/2023 Want [...] of Treatment Not on file Insurance [address] [place] [id number] [facility] Advance Directives For more information, please contact: [phone] * Full Code (Latest Code Status on File) Date Activated Date Inactivated Comments 09/23/2022 6:27 AM 09/23/2022 11:31 AM
--- OUTSIDE RECORDS SUMMARY | 2025-05-30 11:31 | XMS_ITS | Encounter Summary ---
Author Organization [employer] ([place], [place], [place], [place], [place]) Address [address] [place] [address] Care Team Providers Care General Distillery Worker Name Role Phone Unavailable Primary Care Provider Unavailabl e Encounter Details Date Type Department Care Team (Late st Contact Info) Description 09/26/2018 Transcribed Document [facility] [place] [address] [place] [address] ProviderLaury MD [address] [place] [address] Social History Tobacco Use Types Packs/Day [...] Complaints Primary Care Provider : Rema Ferreira, Fire Technology Instructor Accompanied By : Family/Spouse/SO Arrival Mode [...] : No GI 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 : No Cordwood Cutter Hx : No Heart Attack : No [...] Preferred Communication Mode : Verbal Languages : Sri Lankan Child/Parent Domestic Concerns : None Threats of Suicide : No Marry Erickson 09/26/2018 16:51 EDT Height and Weight Height Source : Stated Height Entry Format : [place] Height, Inches : 65 Inch(Converted to: 5 ft 5 Inch, 165.10 cm) Clinical Height : 165.1 cm Weight Source : Stated Type of Weight Measurement Est : [place] Weight, est lb : 213 lb Estimated Clinical Dosing Weight : 96.82 kg [place] Body Weight : 57 kg Body Surface [...] ; Status: Documented ; Ordered As Mnemonic: [place] 5 mg-325 mg oral tablet ; Simple [...] EST Electronically signed by Zuleyka Byrd Conversion Research And Development Manager Cerner at 10/19/2022 11:22 AM CDT documented in this encounter Plan of Treatment Not on file documented as of this encounter Visit Diagnoses Not on filedocumented in this encounter
--- OUTSIDE RECORDS SUMMARY | 2025-05-30 11:31 | XMS_ITS | Encounter Summary ---
Author Organization [employer] ([place], [place], [place], [place], [place]) Address [address] [place] [address] Care Team Providers Care Senior Corporate Accountant Name Role Phone Unavailable Primary Care Provider Unavailabl e Encounter Details Date Type Department Care Team (Late st Contact Info) Description 09/07/2018 Transcribed Document [facility] Family Medicine [address] [place] [address] ProviderLaury MD [address] [place] [address] Social History Tobacco Use Types Packs/Day [...] - Laury ProviderMD - 09/07/2018 9:31 PM RELAY MOTORMAN [facility] ADDR[facility] [place], [place] [phone] Name:Crystal Archer Visit Date:09/07/2018 15:20:00 Emergency Department Care Providers: Physician: MEGHA MAN Physician: Our doctors and staff appreciate your choice of [facility] for your emergency medical care. Read these instructions carefully. Please call us if you have any questions about your medical problem. [facility] Emergency Department [phone] [facility] Emergency Department [phone] [facility] Emergency Department [phone] Patient Education Materials Gianni Crystal Jones has [...] 12/15/2006 Document Revised: 03/06/2017 Document Reviewed: 12/11/2014 ElseVirtual Restaurants Interactive Patient Education ? 2017 [employer] FOLLOW UP CARE Most conditions that [...] [facility] # [phone] o [facility] # [phone] o [facility] # [phone] ?? If you had cultures done and [...] quit. o National Network of Tobacco Cessation [id number]-HENV-NOW o [place] Lung Association o [place] Heart Association [phone] o Sai/Manuel Mccray [phone] FINANCIAL INFORMATION ?? [facility] provides financial counseling to anyone who requests our services. ?? Emergency Physicians are independently contracted to provide your care. You will receive a bill for the care provided to you by the Physician and/or the Physician Typesetting Machine Operator/Tender. This will be a separate bill from [...] Emergency Department. Patient Visit Summary Gianni Crystal Liangsil has been given the following list of [...] Patient Signature / or Patient Online Marketing Director Provider Signature Date Date/Time 09/07/2018 16:31 [place] Home Medications Name Crystal Archer Allergy Info: No Known Allergies Allergy Comment: HOME MEDICATIONS Medication Dose Route Frequency Reason For Taking Next Dose Admelog 100 units/mL injectable solution amLODIPine 2.5 mg oral tablet aspirin 81 mg oral tablet atorvastatin calcium acetate carvedilol 3.125 mg oral tablet fenofibrate gabapentin 300 mg oral capsule Lasix 40 mg oral tablet loratadine 10 mg oral capsule Jones 5 mg-325 mg oral tablet sodium bicarbonate [...]
--- OUTSIDE RECORDS SUMMARY | 2025-05-30 11:31 | XMS_ITS | Encounter Summary ---
Author Organization [employer] ([place], [place], [place], [place], [place]) Address [address] [place] [address] Care Team Providers Care Semiconductor Packages Tester Name Role Phone Unavailable Primary Care Provider Unavailabl e Encounter Details Date Type Department Care Team (Late st Contact Info) Description 12/24/2018 Transcribed Document [facility] [place] [address] [place] [address] ProviderLaury MD [address] [place] [address] Social History Tobacco Use Types Packs/Day [...] - Non-urgent BBK Tracking Group : BBK Shuqualak TomlinMaddi - 12/24/2018 15:05 EDT ED Visit Reason : Rash Primary Care Provider : Rema Ferreira, Counter Pocket Trimmer Accompanied By : Family/Spouse/SO Arrival Mode : [...] : No GI 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 : No Story Writer Hx : No Heart Attack : No [...] Source : Stated Height Entry Format : [place] Height, Inches : 65 Inch(Converted to: 5 ft 5 Inch, 165.10 cm) Clinical Height : 165.1 cm Weight Source : Bed scale Weight Entry Format : [place] Weight, Pounds : 221 lb Clinical Dosing Weight : 100.45 kg Body Surface Area-(BSA) : 2.15 m2 Body Mass Index : 36.9 kg/m2 (HI) [place] Body Weight : 57 kg Maddi Tomlin - 12/24/2018 15:05 EDT Medication List ED Medications Reviewed : Yes Source of Information : Maddi Millard - 12/24/2018 15:05 EDT Medication List (As [...] EDT Electronically signed by Zuleyka Byrd Conversion Information Security Specialist Cerner at 10/19/2022 11:23 AM CDT documented in this encounter Plan of Treatment Not on file documented as of this encounter Visit Diagnoses Not on filedocumented in this encounter
--- OUTSIDE RECORDS SUMMARY | 2025-05-30 11:31 | XMS_ITS | Clinical Summary ---
Author Organization [employer] ([place], [place], [place], [place], [place]) Address [address] [place] [address] Care Team Providers Care Barrel Washer Name Role Phone Unavailable Primary Care Provider [...] Date Blaine rded Speak language other than Cypriot at home Not on file 07/30/2023 Want [...] patient's age to complete this topic Insurance [facility] Advance Directives For more information, please contact: [phone] * Full Code (Latest Code Status on File) Date Activated Date Inactivated Comments 09/23/2022 6:27 AM 09/23/2022 11:31 AM
--- OUTSIDE RECORDS SUMMARY | 2025-05-30 11:31 | XMS_ITS | Encounter Summary ---
Author Organization [employer] ([place], [place], [place], [place], [place]) Address [address] [place] [address] Care Team Providers Care Toxicology Teacher Name Role Phone Unavailable Primary Care Provider Unavailabl e Encounter Details Date Type Department Care Team (Late st Contact Info) Description 12/24/2018 Transcribed Document [facility] [address] [place] [address] ProviderLaury MD [address] [place] [address] Social History Tobacco Use Types Packs/Day [...] Laury ProviderMD - 12/24/2018 7:19 PM CDT [facility] ADDRESS [place], [place] [phone] Name:Crystal Archer Visit Date:12/24/2018 15:01:00 Emergency Department Care Providers: Physician: MEGHA MAN Physician: Our doctors and staff appreciate your choice of [facility] for your emergency medical care. Read these instructions carefully. Please call us if you have any questions about your medical problem. [facility] Emergency Department [phone] [facility] Emergency Department [phone] [facility] Emergency Department [phone] Patient Education Materials Gianni Crystal Jones has [...] Medicines may be prescribed or be available [id number]-gcxeqxd. The medicines may be: ??? Taken by mouth (orally). ??? Applied as a cream. Follow these instructions at home: ??? Take or apply hiat-wnu-kjbdsms and prescription medicines only as told by [...] 03/21/2012 Document Revised: 02/27/2017 Document Reviewed: 01/05/2016 [employer] Patient Education ? 2019 [employer]. FOLLOW UP CARE Most conditions that require [...] up o [facility] # [phone] o [facility] # [phone] o [facility] # [phone] ?? If you had cultures done and [...] quit. o National Network of Tobacco Cessation WIhkwtyzw9-389-IAMN-NOW o [place] [employer] o [place] [employer] [phone] o Sai/Manuel Mccray [phone] FINANCIAL INFORMATION ?? [facility] provides financial counseling to anyone who requests our services. ?? Emergency Physicians are independently contracted to provide your care. You will receive a bill for the care provided to you by the Physician and/or the Physician Object Oriented Programmer. This will be a separate bill from [...] as recommended Patient Signature / or Patient Field Marketer Provider Signature Date Date/Time 12/24/2018 15:19 [facility] [...] Date Electronically signed by Zuleyka Byrd Conversion Irrigation District Manager Sandraner at 10/19/2022 11:23 AM CDT documented in this encounter Plan of Treatment Not on file documented as of this encounter Visit Diagnoses Not on filedocumented in this encounter
--- OUTSIDE RECORDS SUMMARY | 2025-05-30 11:31 | XMS_ITS | Clinical Summary ---
Author Organization [facility] Address [address] [place] [address] Care Team Providers Care Justice Court Deputy Clerk Name Role Phone Jaquan Conley MD Primary Care Provider [phone] Social History Tobacco Use Types Packs/Day Years [...] Dialysis 4-dose series) 2009 Pap Smear 2010 HPV Vaccines (1 - 3-dose SCDM series) 2016 Cervical Cancer Screening 2019 HPV/Cotest 2019 Depression [...] 12/31/2024 9:28 AM EDT HEPATITIS C ANTIBODY WITH REFLEX TO HCV, RNA, QUANTITATIVE, REAL-TIME PCR (REFL) Routine 05/19/2023 8:10 AM EDT from Last [...] 9:28 AM EDT 12/31/2024 9:54 AM EDT [facility] LAB - 12/31/2024 10:31 AM EDT Performed by [facility], [address] [place] [address] Nikki Jeffery APRN LAB BLOOD ORDERABLES Final Re sult [facility] [address] [place] [address], [facility] CH Remisol 2.0 SS Pathology Department [address] [place] [address] * (ABNORMAL) Comprehensive metabolic panel (12/31/2024 9:28 AM EDT) Sodium 142 136 - 145 mmol/L 12/31/2024 10:31 AM EDT [facility] CH Remisol 2.0 SS Potassium 4.9 3.5 - 5.1 mmol/L 12/31/2024 10:31 AM EDT [facility] CH Remisol 2.0 SS Chloride 111(H) 98 - 110 mmol/L 12/31/2024 10:31 AM EDT [facility] CH Remisol 2.0 SS CO2 23 21 - 31 mmol/L 12/31/2024 10:31 AM EDT [facility] CH Remisol 2.0 SS Anion Gap 8.0 2.0 - 11.0 12/31/2024 10:31 AM EDT [facility] CH Remisol 2.0 SS Calcium 9.0 8.6 - 10.2 mg/dL 12/31/2024 10:31 AM EDT [facility] CH Remisol 2.0 SS Glucose 169(H) 74 - 109 mg/dL 12/31/2024 10:31 AM EDT [facility] CH Remisol 2.0 SS BUN 20 7 - 25 mg/dL 12/31/2024 10:31 AM EDT [facility] CH Remisol 2.0 SS Creatinine 1.31(H) 0.60 - 1.20 mg/dL 12/31/2024 10:31 AM EDT [facility] CH Remisol 2.0 SS BUN/Creatinine Ratio 15.3 6.0 - 22.0 12/31/2024 10:31 AM EDT [facility] CH Remisol 2.0 SS Albumin 3.4(L) 3.5 [...] - 3.5 Gram/dL 12/31/2024 10:31 AM EDT [facility] CH Remisol 2.0 SS EGFR 54(L) >=60 mL/min/1.7 3m2 12/31/2024 10:31 AM EDT [facility] CH Remisol 2.0 SS Comment:eGFR calculation per formed using the CKD-EPI 2020 equation (race variable excluded) Blood Venous Draw / Unknown 12/31/2024 9:28 AM EDT 12/31/2024 9:54 AM EDT Narrative [facility] - 12/31/2024 10:31 AM EDT Performed by [facility], [address] [place] [address] Nikki Jeffery APRN LAB BLOOD ORDERABLES Final Re sult Performing Organization Address [facility] Co de Phone Number [facility] [address] [place] [address], [facility] Remisol 2.0 SS Pathology Department [address] [place] [address] * Hepatitis C antibody (05/19/2023 8:10 AM EDT) Hep C Virus Ab NONREACTIVE Nonreactive 05/19/2023 12:09 PM EDT [facility] Core CH Remisol Blood 05/19/2023 8:10 AM EDT 05/19/2023 11:19 AM EDT Yue Kraft MD LAB BLOOD ORDERABLES Edited Resu lt - Final Performing Organization Address [facility] Co de Phone Number [facility] [address] [place] [address], [facility] Core CH Remisol SS Pathology Department [address] [place] [address] from Last 3 Months or Most Recently Relevant to Health Maintenance Insurance [place] [employer] Care Teams Justice Court Deputy Clerk Relationship Specialty Start Date End Date Jaquan Conley MD [address] [place] [address] [place] [address] PCP - General Internal Medicine 09/18/20
--- OUTSIDE RECORDS SUMMARY | 2025-05-30 11:31 | XMS_ITS | Encounter Summary ---
Author Organization [employer] ([place], [place], [place], [place], [place]) Address [address] [place] [address] Care Team Providers Care Office Manager Executive Assistant Name Role Phone Unavailable Primary Care Provider Unavailabl e Encounter Details Date Type Department Care Team (Late st Contact Info) Description 08/03/2018 Transcribed Document [facility] Family Medicine [address] [place] [address] ProviderLaury MD [address] [place] [address] Social History Tobacco Use Types Packs/Day [...] - Laury ProviderMD - 08/03/2018 7:32 PM LSAT INSTRUCTOR [facility] Emergency Department Depart Summary PERSON INFORMATION Name Crystal Archer Age 27 Years 1990 Sex Female Language PCP Marital Status Phone [phone] Visit Id Visit Reason Specialty Enc Type Emergency Med Service Referred by Track Group [facility] Discharge Tracking Id [id number] Checkout 08/03/2018 14:32:57 Checkin 08/03/2018 13:52:00 Acuity 3 - Urgent [facility] Dispo Type Arrival 08/03/2018 13:52:00 Reg Status LOS 000 00:40 Address: [address] [place] [address] [place] [address] POWERFORMS PHYSICIAN NOTES VITALS INFORMATION Vital Sign Triage Temp 98.1 Temp Route Oral/Mouth Pulse Rate 90 Respiratory Rate 18 Blood Pressure 152/ 87 LOCATION INFORMATION Arrival Nurse Unit Room Bed 08/03/2018 13:52:00 [facility] ED Waitroom ([facility]) 08/03/2018 13:55:29 [facility] ED 3 08/03/2018 14:32:57 [facility] ED Checkout ([facility]) MEDICAL INFORMATION Allergy Info: No Known Allergies PATIENT EDUCATION INFORMATION Instructions: Follow up: DIAGNOSIS documented in this encounter Plan of Treatment Not on file documented as of this encounter Visit Diagnoses Not on filedocumented in this encounter
[2025-05-30 11:32] LABS: Microscopic, Urine URINE MICROSCOPIC (MICROSCOPIC)
[2025-05-30 11:44] LABS: Hematocrit 35.8 % (37.0-47.0); Hemoglobin 11.5 g/dL (12.2-16.2); Immature Granulocytes % 1.2 %; Mean Corpuscular HGB Conc 32.1 g/dL (31.8-35.4); Mean Corpuscular Hemoglobin 29.6 pg (27.0-31.2); Mean Corpuscular Volume 92.0 fl (81-99); Nucleated Red Blood Cells % 0 %; Platelet Count 156 K/mm3 (142-424); Red Blood Count 3.89 M/mm3 (4.20-5.40); Red Cell Distribution Width-SD 43.4 fL; White Blood Count 4.1 K/mm3 (4.8-10.8)
[2025-05-30 11:44] LABS: Bilirubin,Urine Negative (Negative); Color,Urine YELLOW (Yellow); Glucose,Urine (UA) Negative (Negative); Ketones,Urine Negative (Negative); Leukocyte Esterase,Urine Negative (Negative); PH,Urine 6.5 (5.0-8.5); Protein,Urine Negative (Negative); Specific Gravity, Urine 1.020 (1.005-1.030); Urobilinogen,Urine 0.2 EU/dl (0.2)
[2025-05-30 11:58] LABS: RBC,Urine Occasional #/hpf (0-3); Squamous Epithelial Cell,Urine 50-100 #/hpf (0-5); WBC,Urine Occasional #/hpf (0-3)
[2025-05-30 12:20] LABS: Alanine Aminotransferase 17 U/L (12-78); Albumin Level 4.1 g/dl (3.5-5.0); Albumin/Globulin Ratio 1.8 (1.1-1.8); Alkaline Phosphatase 79 U/L (38-126); Anion Gap 12.6 mEq/L (5-15); Aspartate Amino Transferase 20 U/L (14-36); Bilirubin,Total 0.4 mg/dl (0.2-1.3); Blood Urea Nitrogen 17 mg/dl (7-17); Calcium 9.6 mg/dl (8.4-10.2); Carbon Dioxide 21 mmol/L (22.0-30.0); Chloride 109 mmol/L (98-107); Creatinine,Serum 0.90 mg/dl (0.52-1.04); Estimated Glomerular Filt Rate 71 ml/min (>60); GFR (African American) 86 ML/MIN (>60); Globulin 2.3 g/dL (1.3-3.2); Glucose 194 mg/dl (74-100); Magnesium 1.3 mg/dl (1.6-2.3); Phosphorous 3.7 mg/dl (2.5-4.5); Potassium 5.6 mmoL/L (3.5-5.1); Sodium 137 mmol/L (136-145); Total Protein,Serum 6.4 g/dl (6.3-8.2)
[2025-06-01 12:18] LABS: Tacrolimus (FK506), Blood 8.2 ng/mL (5.0-20.0)
[2025-06-01 13:35] LABS: BKV DNA, Quant PCR, Plasma Negative (Negative)
== END 2025-05-30 23:59 | disposition home or self-care (01) ==
LOC: LAB 11:15
PROVIDERS: PCP Nurse Practitioner; Visit Provider Nurse Practitioner Family
DX: Z01.89 Encounter for other specified special examinations (principal); Z79.899 Other long term (current) drug therapy
CPT/HCPCS: 36415; 80053; 80197; 81001; 82570; 83735; 84100; 84156; 85025; 87497; 87799

== ENCOUNTER 2025-06-20 12:24 | Outpatient (CLI) | payer MEDICAID, SELFPAY ==
--- OUTSIDE RECORDS SUMMARY | 2025-06-20 12:35 | XMS_ITS | Encounter Summary ---
Author Organization [employer] ([place], [place], [place], [place], [place]) Address [address] [place] [address] Care Team Providers Care General Activities Therapist Name Role Phone Unavailable Primary Care Provider Unavailabl e Encounter Details Date Type Department Care Team (Late st Contact Info) Description 01/05/2020 Transcribed Document [facility] [place] [address] [place] [address] ProviderLaury MD [address] [place] [address] Social History Tobacco Use Types Packs/Day [...]
--- OUTSIDE RECORDS SUMMARY | 2025-06-20 12:35 | XMS_ITS | Encounter Summary ---
Author Organization [employer] ([place], [place], [place], [place], [place]) Address [address] [place] [address] Care Team Providers Care Door Repairer Bus Name Role Phone Unavailable Primary Care Provider Unavailabl e Encounter Details Date Type Department Care Team (Late st Contact Info) Description 01/19/2020 Transcribed Document [facility] [place] [address] [place] [address] ProviderLaury MD [address] [place] [address] Social History Tobacco Use Types Packs/Day [...] 01/19/2020 16:16 EDT Electronically signed by Rochelle [facility] Conversion Recreation Therapist Cerner at 11/02/2022 9:56 AM CDT documented in this encounter Plan of Treatment Not on file documented as of this encounter Visit Diagnoses Not on filedocumented in this encounter
--- OUTSIDE RECORDS SUMMARY | 2025-06-20 12:35 | XMS_ITS | Encounter Summary ---
Author Organization [employer] ([place], [place], [place], [place], [place]) Address [address] [place] [address] Care Team Providers Care River Transportation Worker Name Role Phone Unavailable Primary Care Provider Unavailabl e Encounter Details Date Type Department Care Team (Late st Contact Info) Description 01/05/2020 Transcribed Document [facility] [place] [address] [place] [address] ProviderLaury MD [address] [place] [address] Social History Tobacco Use Types Packs/Day [...] your book, please call the Center at [phone]. Electronically signed by Zuleyka Byrd Conversion Supervisor Buffing And Pasting Cerner at 11/02/2022 10:07 AM CDT documented in this encounter Plan of Treatment Not on file documented as of this encounter Visit Diagnoses Not on filedocumented in this encounter
--- OUTSIDE RECORDS SUMMARY | 2025-06-20 12:35 | XMS_ITS | Encounter Summary ---
Author Organization [employer] ([place], [place], [place], [place], [place]) Address [address] [place] [address] Care Team Providers Care School Aide Name Role Phone Unavailable Primary Care Provider Unavailabl e Encounter Details Date Type Department Care Team (Late st Contact Info) Description 11/19/2018 Transcribed Document [facility] [place] [address] [place] [address] ProviderLaury MD [address] [place] [address] Social History Tobacco Use Types Packs/Day [...] Laury ProviderMD - 11/19/2018 1:52 AM CDT [facility] Emergency Department Depart Summary PERSON INFORMATION Name Crystal Archer Age 28 Years 1990 Sex Female Language PCP Marital Status Phone [phone] Visit Id Visit Reason Specialty Enc Type Emergency Med Service Referred by Track Group [facility] Discharge Tracking Id [id number] Checkout 11/18/2018 21:52:54 Checkin 11/18/2018 20:06:00 Acuity 4 - Non-urgent [facility] Dispo Type Arrival 11/18/2018 20:06:00 Reg Status MIRIAM 000 01:46 Address: [address] [place] [address] [place] [address] POWERFORMS PHYSICIAN NOTES VITALS INFORMATION Vital Sign Triage Temp 99.0 Temp Route Oral/Mouth Pulse Rate 107 Respiratory Rate 18 Blood Pressure 147/ 87 LOCATION INFORMATION Arrival Nurse Unit Room Bed 11/18/2018 20:06:00 [facility] ED Waitroom ([facility]) 11/18/2018 20:10:40 [facility] ED 8 11/18/2018 21:33:06 [facility] ED STA-3 11/18/2018 21:52:54 [facility] ED Checkout ([facility]) MEDICAL INFORMATION Allergy Info: No Known Allergies PATIENT EDUCATION INFORMATION Instructions: Urinary Tract Infection, Adult, Yhej-yc-Xqth; Otitis Media, Adult, Mmal-ha-Lcil Follow up: With: Address: When: Follow up with primary care provider Within 1-2 days With: Address: When: Return to Emergency Department Within As needed DIAGNOSIS Electronically signed by Zuleyka Byrd Conversion Automatic Buffing Wheel Former Cerner at 10/19/2022 11:23 AM CDT documented in this encounter Plan of Treatment Not on file documented as of this encounter Visit Diagnoses Not on filedocumented in this encounter
--- OUTSIDE RECORDS SUMMARY | 2025-06-20 12:35 | XMS_ITS | Encounter Summary ---
Author Organization [employer] ([place], [place], [place], [place], [place]) Address [address] [place] [address] Care Team Providers Care Talent Engineer Name Role Phone Unavailable Primary Care Provider Unavailabl e Encounter Details Date Type Department Care Team (Late st Contact Info) Description 12/28/2019 Transcribed Document [facility] [place] [address] [place] [address] ProviderLaury MD [address] [place] [address] Social History Tobacco Use Types Packs/Day [...] Policy Numbers : Insurance 1 Health Plan[facility] Policy Number: [id number] Authorization Number: Insurance Primary Name : [facility] Policy Number: [id number] Authorization Status-Primary : Admit approved Reference Number-Primary : [id number] Authorization Number-Primary : [id number] Number of Days Authorized-Primary : 0 Day(s) [...]
--- OUTSIDE RECORDS SUMMARY | 2025-06-20 12:35 | XMS_ITS | Encounter Summary ---
Author Organization [employer] ([place], [place], [place], [place], [place]) Address [address] [place] [address] Care Team Providers Care Auction Block Clerk Name Role Phone Unavailable Primary Care Provider Unavailabl e Encounter Details Date Type Department Care Team (Late st Contact Info) Description 01/04/2020 Transcribed Document [facility] Family [place] [address] [place] [address] ProviderLaury MD [address] [place] [address] Social History Tobacco Use Types Packs/Day [...]
--- OUTSIDE RECORDS SUMMARY | 2025-06-20 12:35 | XMS_ITS | Encounter Summary ---
Author Organization [facility] Address [address] [place] [address] Care Team Providers Care Sound Effects Supervisor Name Role Phone Jaquan Conley MD Primary Care Provider + [phone] Encounter Details Date Type Department Care Team (Late st Contact Info) Description 11/10/2018 [facility] OTTR Encounter Historical OTTR [address] [place] [address] Yris Schwarz, RN CH-TRANSPLANT ADMINISTRATION None Social History Tobacco Use Types Packs/Day Years [...] . She stated she is going to [facility] because they told her she can continue [...] EDT SW received message from [facility] psych transliterator that the pt contacted her to cancel psych appt, as she has decided to pursue listing at [facility], instead of . Note to Coord. and Timber Skidder for awareness. * Progress Notes - MárquezIndira - 11/09/2018 4:12 PM EDT Mailed 11/24/18 [facility] psych eval appt schedule w/ map to pt. * Progress Notes - Daisy Gaming LCSW - 11/08/2018 8:09 AM EDT Per [facility] Timber Skidder, pt has an appt with [facility] on 11/24/18 at 1:30 pm. Note [...] Progress Notes - Daisy Gaming LCSW - 10/20/2018 9:03 AM EDT has emailed request for [facility] psychiatric evaluation to Dr. Perry and his [...] initial consult/evaluation will need to be through [facility]. Patient states she is agreeable and requests appt be made between 9 and 12 due to children's service worker issues. Forwarding communication to . * [...] However, pt is also considering going to [facility] since she was told they are less [...] @ 0830. Updated APM, SCM, OTTR, and [place]. Will call pt and mail updated ppw. [...] schedule SW consult * Progress Notes - Indiar Márquez - 08/11/2018 11:51 AM EST Received VM from pt asking for call back at [phone] to talk about a living donor. Called and spoke w/ pt. States she has several potential living donors and they have questions about the process, testing, and requirements. Informed pt that her potential living donors can call [phone] to discuss this and receive more info, [...] packet to pt and cc'd referring MD. [facility] [phone] 1984 [...] on filedocumented in this encounter Care Teams Sound Effects Supervisor Relationship Specialty Start Date End Date Jaquan Conley MD [address] [place], [place] [id number] PCP - General 11/28/20 documented as of this encounter
--- OUTSIDE RECORDS SUMMARY | 2025-06-20 12:35 | XMS_ITS | Encounter Summary ---
Author Organization [employer] ([place], [place], [place], [place], [place]) Address [address] [place] [address] Care Team Providers Care Cupola Repairer Name Role Phone Unavailable Primary Care Provider Unavailabl e Encounter Details Date Type Department Care Team (Late st Contact Info) Description 01/05/2020 Transcribed Document [facility] [place] [address] [place] [address] ProviderLaury MD [address] [place] [address] Social History Tobacco Use Types Packs/Day [...] 7:38 EDT Electronically signed by Rochelle [facility] Conversion Elevator Operator Freight Cerner at 11/02/2022 10:09 AM CDT documented in this encounter Plan of Treatment Not on file documented as of this encounter Visit Diagnoses Not on filedocumented in this encounter
--- OUTSIDE RECORDS SUMMARY | 2025-06-20 12:35 | XMS_ITS | Clinical Summary ---
Author Organization [facility] Address [address] [place] [address] Care Team Providers Care Radiology Transcriptionist Name Role Phone Unavailable Primary Care Provider [...] therelease of HIV test results or diagnoses. [id number] Allergies Active Allergy Reactions Criticality Noted Date [...] - Td or Tdap) 09/28/2033 09/29/2023 Insurance [facility]
--- OUTSIDE RECORDS SUMMARY | 2025-06-20 12:35 | XMS_ITS | Encounter Summary ---
Author Organization [employer] ([place], [place], [place], [place], [place]) Address [address] [place] [address] Care Team Providers Care Tip Inserter Name Role Phone Unavailable Primary Care Provider Unavailabl e Encounter Details Date Type Department Care Team (Late st Contact Info) Description 01/05/[address] [facility] [place] [address] [place] [address] ProviderLaury MD [address] [place] [address] Social History Tobacco Use Types Packs/Day [...] On: 01/05/2020 8:27 EDT by CRISTOBAL HANSEN, RN-Application Project Leader Initial Assessment I Previously Documented Living Environment [...] have PCP Listed? : Yes CRISTOBAL HANSEN RN-Application Project Leader - 01/05/2020 8:27 EDT Initial Assessment II [...] : Discharge transportation, Outpatient services CRISTOBAL HANSEN RN-Application Project Leader - 01/05/2020 8:27 EDT Narrative Note Narrative Note : Patient underwent laparoscopic gastrectomy sleeve. Lives at home with family, iADLs. Plan [place] to return home at [place], no services needed..................sds CRISTOBAL HANSEN RN-Application Project Leader - 01/05/2020 8:27 EDT documented in this encounter Plan of Treatment Not on file documented as of this encounter Visit Diagnoses Not on filedocumented in this encounter
--- OUTSIDE RECORDS SUMMARY | 2025-06-20 12:35 | XMS_ITS | Encounter Summary ---
Author Organization [employer] ([place], [place], [place], [place], [place]) Address [address] [place] [address] Care Team Providers Care Knitting Machine Fixer Head Name Role Phone Unavailable Primary Care Provider Unavailabl e Encounter Details Date Type Department Care Team (Late st Contact Info) Description 01/18/2020 Transcribed Document [facility] Family Medicine [address] [place] [address] ProviderLaury MD [address] [place] [address] Social History Tobacco Use Types Packs/Day [...] Laury ProviderMD - 01/18/2020 8:28 PM CDT [place] Suicide Severity Rating Scale (C-SSRS) Entered On: 01/18/2020 21:29 EDT Performed On: 01/18/2020 21:29 EDT by JASON FUENTES, RN [place] Suicide Severity Rating Scale (C-SSRS) CSSRS Past [...]
--- OUTSIDE RECORDS SUMMARY | 2025-06-20 12:35 | XMS_ITS | Clinical Summary ---
Author Organization [facility] Address [address] [place] [address] Care Team Providers Care Claims Agent Right Of Way Name Role Phone Yang, Maria A Doyle APRN Primary Care Provider [phone] Allergies Active Allergy Reactions Criticality Noted Date [...] Daily. Active vitamin D (ERGOCALCIFEROL) 1.25 MG (95202 UT) capsule capsule Take 1 capsule by [...] menstrual bleeding. Followed by Dr. Lynch at [facility]. In review of most recent labs [...] emptying. Contacted her transplant medical team at [facility] this morning with her symptoms set. She [...] Plan (10/04/2024 3:33 PM EDT): Valuated in [facility] for the same approximately 1 month ago. [...] available. I have also requested records from [facility] ED visit which supposedly includes some [...] a call from the [facility] that they had a match for her [...] be followed closely by [facility] transplant as well as Dr. Stevens at [facility]. Assessment & Plan (08/22/2024 11:22 AM EST): On December 02, 2023 she received a call from the [facility] that they had a match for her [...] be followed closely by [facility] transplant as well as Dr. Stevens at [facility] locally. Assessment & Plan (06/07/2024 12:35 PM EST): Patient last evaluated in our office a little over 1 year ago in April 2023. At that time she was suffering from end-stage renal disease due to diabetic nephropathy, performing home peritoneal dialysis nightly. On December 02, 2023 she received a call from the [facility] that they had a match for her [...] be followed closely by [facility] transplant as well as Dr. Stevens at [facility] locally. Annual physical exam 03/15/2023 Cervical cancer screening 03/15/2023 Type 2 diabetes mellitus wit h hyperglycemia, with long-term current use of insulin 02/15/2023 Assessment & Plan (02/25/2025 7:41 AM EDT): Patient followed by endocrinology at the [facility]. Patient currently utilizes insulin pump and [...] followed by Dr. Stevens at [facility]. Working towards renal transplant with [facility].. Assessment & Plan (03/15/2023 5:10 PM EDT): Etiology of end-stage renal disease appears to be hypertensive nephrosclerosis as well as diabetic nephropathy. She was a noncompliant type I diabetic for many years, diagnosed at the age of 12. She is currently performing home peritoneal dialysis nocturnally 6 days/week. Working towards renal transplant with [facility]. [facility] Assessment & Plan (02/15/2023 3:01 PM EDT): Etiology of end-stage renal disease appears to be hypertensive nephrosclerosis as well as diabetic Nephropathy. She was a noncompliant type I diabetic for many years, diagnosed at the age of 12. She is currently performing home peritoneal dialysis nocturnally 6 days/week. Working towards renal transplant with [facility]. To [facility] [...] therapy for quite some time by her cleaner assistant. Patient has not been on GLP-1 for [...] been started on GLP-1 therapy by her cleaner assistant and is back down to 157 pounds [...] of 107. She reports she saw her ammonium sulfate operator who wanted to increase her blood pressure medications but she refused stating she knew she stopped the medications her blood pressure would return to normal. She is now off both BuSpar and venlafaxine with blood pressure 110/74 in office today. Patient feels her mood is stable currently without medications due to some decrease stressors in the home. Her wgnqht-vl-zun with whom she help caregive from [place]'s disease, decreasing some of her personal obligations. [...] to that presentation she was evaluated at [facility] with respiratory issues, tested negative [...] sneezing. She was a originally evaluated at [facility] over 1 week ago with respiratory [...] parasites and C. difficile toxin. 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 02/15/2023 06/07/2024 Assessment [...] diabetes mellitus with hyperglycemia 12/30/2015 02/15/2023 Immunizations Immunization Administration Dates Next Due 31-influenza [...] 02/12/2028 02/11/2025 (Patient-Reported (Performed Externally)) TDAP/TD VACCINES (2 - Td or Tdap) 09/28/2033 09/29/2023, [...] Hemoglobin A1C 5.6 4.5 - 5.7 % [facility] Lot Number [id number] [facility] Expiration Date [id number] [facility] Blood 02/22/2025 10:2 6 AM EDT Maria A Soria APRN POINT OF CARE TEST ORDERABL ES Final Result [facility]
[address] [place] [address], * Lipid Panel (08/22/2024 9:48 AM EST) [...] 9:48 AM EST 08/22/2024 Comment:Blood Release to [facility] (AMBULAT[facility]) - 08/23/2024 9:07 AM EST Performed at: 01 - [address] [id number] Locomotive Supervisor: Jacob Whaley PhD, Phone: [phone] Maria A Soria APRN LAB BLOOD ORDERABLES Final Result [facility] ([facility]) [address] [place] [address], [facility] [address] [id number], * Hepatitis C Antibody (07/23/2019 10:03 AM EST) Pathologist [facility] Hepatitis C Ab Non-Reacti ve Non-Reacti ve 07/23/2019 6:31 PM EST [facility] Blood Venipuncture / Unknown 07/23/2019 10:03 AM EST 07/23/2019 10:38 AM EST Mukul Stevens MD LAB BLOOD ORDERABLES F inal Result [facility]
[address] [place] [address], from Last 3 Months or Most Recently [...] pulse or is breathing): Full Care Teams Claims Agent Right Of Way Relationship Specialty Start Date End Date Maria A Soria APRN [address] [phone] PCP - General Family Medicine 02/15/23
--- OUTSIDE RECORDS SUMMARY | 2025-06-20 12:35 | XMS_ITS | Encounter Summary ---
Author Organization [employer] ([place], [place], [place], [place], [place]) Address [address] [place] [address] Care Team Providers Care Patient Accounts Clerk Name Role Phone Unavailable Primary Care Provider Unavailabl e Encounter Details Date Type Department Care Team (Late st Contact Info) Description 01/07/[address] 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 Zofran 8mg oral every 12 hours as needed for nausea. Prilosec 20mg oral daily. Starts tomorrow. [2] Code Status No Code Status Order on Record Condition on Discharge Stable Consulting Physicians LARRY JAIMES MD-ANS Current Diet Order No qualifying data available. Patient Discharge Summary Orders Discharge Follow Up Instructions: followup next weekCall for [id number] Follow Up Instructions: call office on tuesday [...]
--- OUTSIDE RECORDS SUMMARY | 2025-06-20 12:35 | XMS_ITS | Encounter Summary ---
Author Organization [employer] ([place], [place], [place], [place], [place]) Address [address] [place] [address] Care Team Providers Care Operations Specialists Name Role Phone Unavailable Primary Care Provider Unavailabl e Encounter Details Date Type Department Care Team (Late st Contact Info) Description 01/19/2020 Transcribed Document [facility] [place] Family Medicine [address] [place] [address] ProviderLaury MD [address] [place] [address] Social History Tobacco Use Types Packs/Day [...] Laury ProviderMD - 01/19/2020 3:30 PM CDT [address] [address] FREDDIE ARCHERGARCIA :1990 Visit Time:01/19/2020 Your Visit Summary Your Care Team Admitting Physician - AHMED, CORDERO A, LAZARA VAENGAS MD PHY, UNKNOWN Attending Physician - CONSUELO [...] pharmacies and retail stores. ??? Eat bland, znfk-hs-ioacwk foods in small amounts as you are [...] and water are not available, use hand deck steward. Make sure that everyone in your household washes their hands frequently. ??? Take hoyj-yrw-ayehmml and prescription medicines only as told by [...] and water are not available, use hand deck steward. Make sure that everyone in your household [...] 07/30/2016 Document Revised: 12/12/2018 Document Reviewed: 12/12/2018 [employer] Interactive Patient Education ?? 2020 netTALK. Hypoglycemia Hypoglycemia occurs when the level of [...] instructions at home: General instructions ??? Take ezzo-omv-ytwwbwe and prescription medicines only as told by [...] 07/04/2006 Document Revised: 12/26/2018 Document Reviewed: 08/06/2016 [employer] Interactive Patient Education ?? 2020 netTALK. Emergency Awareness and Preventative Care STROKE is [...] Assistance with quitting is available by contacting 2-426-SUOG-NOW. This is a free resource providing counseling, [...] range between ( 1.0 and 7.0 ) Chaves #: 0.73 K/uL -- Normal range between ( 0.24 and 0.82 ) Eos #: 0.24 K/uL -- Normal range between ( 0.04 and 0.54 ) Chaves %: 7.3 % -- Normal range between [...] ) Urine Bilirubin Dipstick: Negative Urine Specific Yale: 1.012 -- Normal range between ( 1.005 [...] was given the opportunity to ask questions. Patient/Packing House Laborer Name: Patient/Packing House Laborer Signature: Relationship to Patient: Clinician/Hospital Packing House Laborer Signature: Date: documented in this encounter Plan of Treatment Not on file documented as of this encounter Visit Diagnoses Not on filedocumented in this encounter
--- OUTSIDE RECORDS SUMMARY | 2025-06-20 12:35 | XMS_ITS | Encounter Summary ---
Author Organization [employer] ([place], [place], [place], [place], [place]) Address [address] [place] [address] Care Team Providers Care Artificial Inseminator Name Role Phone Unavailable Primary Care Provider Unavailabl e Encounter Details Date Type Department Care Team (Late st Contact Info) Description 01/19/2020 Transcribed Document [facility] [place] [facility] [place] [address] ProviderLaury MD [address] [place] [address] Social History Tobacco Use Types Packs/Day [...] Obtained From : Patient Primary Language : Kenyan Preferred Communication Mode : Verbal Communication Barrier : None Soliciting Freight Agent Needed : No OCTAVIO BRAND RN - [...] Scale Risk Level : 0-24 Low Risk [place] Fall Interventions : Adequate lighting, Bed in [...] Source : Stated Height Entry Format : Gilman Height, Feet : 5 ft(Converted to: 152 cm, 60 Inch) Height, Inches : 5 Inch(Converted to: 0 ft 5 Inch, 12.70 cm) Clinical Height : 165.1 cm Weight Source : Standing scale Weight Entry Format : Gilman Clinical Dosing Weight : 104.91 kg Weight, Pounds : 230.8 lb Body Surface Area (BSA) : 2.1 m2 Body Mass Index : 38.5 kg/m2 (HI) Gustine Body Weight : 57 kg OCTAVIO BRAND [...] OCTAVIO BRAND RN - 01/19/2020 8:36 EDT [place] Suicide Severity Rating Scale (C-SSRS) CSSRS Past [...]
--- OUTSIDE RECORDS SUMMARY | 2025-06-20 12:35 | XMS_ITS | Encounter Summary ---
Author Organization [employer] ([place], [place], [place], [place]) Address [address] [place] [address] Care Team Providers Care Sack Lifter Name Role Phone Unavailable Primary Care Provider Unavailabl e Encounter Details Date Type Department Care Team (Late st Contact Info) Description 01/19/[address] [facility] [place] Family Medicine [address] [place] [address] ProviderLaury MD [address] [place] [address] Social History Tobacco Use Types Packs/Day [...] On: 01/19/2020 8:59 EDT by CRISTOBAL HANSEN RN-Shipmaster Readmission Questionnaire Patient Status at Discharge, Previous [...] Was Readm Preventable : No CRISTOBAL HANSEN, RN-Shipmaster - 01/19/2020 8:59 EDT Electronically signed by Rochelle [facility] Conversion Medical Receptionist Assistant Cerner at 11/02/2022 9:56 AM CDT documented in this encounter Plan of Treatment Not on file documented as of this encounter Visit Diagnoses Not on filedocumented in this encounter
--- OUTSIDE RECORDS SUMMARY | 2025-06-20 12:35 | XMS_ITS | Encounter Summary ---
Author Organization [facility] Address [address] [place] [address] Care Team Providers Care It Assistant Name Role Phone Jaquan Conley MD Primary Care Provider + [phone] Reason for Visit * Reason Comments Med Refill Encounter Details Date Type Department Care Team (Late st Contact Info) Description 05/21/2025 Refill [facility] Endocrinology [address] [place] [address] Paz Echeverria MD [address] [address] Type 2 diabetes mellitus with [...] documented as of this encounter Care Teams It Assistant Relationship Specialty Start Date End Date Jaquan Conley MD [address] [place] [address] PCP - General 11/28/20 documented as of this encounter
--- OUTSIDE RECORDS SUMMARY | 2025-06-20 12:35 | XMS_ITS | Encounter Summary ---
Author Organization [employer] ([place], [place], [place], [place], [place]) Address [address] [place] [address] Care Team Providers Care Incising Machine Operator Name Role Phone Unavailable Primary Care Provider Unavailabl e Encounter Details Date Type Department Care Team (Late st Contact Info) Description 08/24/2019 Transcribed Document [facility] [place] [address] [place] [address] ProviderLaury MD [address] [place] [address] Social History Tobacco Use Types Packs/Day [...] - Historical ProviderMD - 08/24/2019 2:30 PM DELI MANAGER [facility] PreOp Summary Primary Physician: LARRY MARTINES MD-SUR Finalized Date/Time: 08/24/19 10:30:24 Pt. Name: FREDDIE RUGGIERO FELICIA /Sex: 1990 Female Med Rec #: [id number] Physician: LARRY MARTINES MD-SUR Financial #: [id number] Pt. Type: O Room/Bed: [facility]/ Admit/Disch: 08/24/19 09:42:00 - Institution: [facility] PreOp Case Times Entry 1 In Preop 08/24/19 10:06:00 Ready for Holding n/a Room Patient Ready for 08/24/19 10:30:00 Surgery Patient Out of Preop 08/24/19 10:30:00 Patient Out of n/a Holding Room [facility] PreOp Case Times Audit 08/24/19 10:30:23 Highway Painter: GEOVANNA Modifier: HOLMESTJ <+> 1 Patient Out of Preop <+> 1 Patient Ready for Surgery Finalized By: ANGE Green RN Document Signatures Signed By: ANGE Green RN 08/24/19 10:30 Electronically signed by Rochelle [facility] Conversion Algebra Teacher Cerner at 11/02/2022 10:00 AM CDT documented in this encounter Plan of Treatment Not on file documented as of this encounter Visit Diagnoses Not on filedocumented in this encounter
--- OUTSIDE RECORDS SUMMARY | 2025-06-20 12:35 | XMS_ITS | Encounter Summary ---
Author Organization [employer] ([place], [place], [place], [place], [place]) Address [address] [place] [address] Care Team Providers Care Die Holder Name Role Phone Unavailable Primary Care Provider Unavailabl e Encounter Details Date Type Department Care Team (Late st Contact Info) Description 01/19/2020 Transcribed Document [facility] [place] [address] [place] [address] ProviderLaury MD [address] [place] [address] Social History Tobacco Use Types Packs/Day [...] 01/19/2020 15:30 EDT Electronically signed by Rochelle [facility] Conversion Interior Design Teacher Cerner at 11/02/2022 10:02 AM CDT documented in this encounter Plan of Treatment Not on file documented as of this encounter Visit Diagnoses Not on filedocumented in this encounter
--- OUTSIDE RECORDS SUMMARY | 2025-06-20 12:35 | XMS_ITS | Encounter Summary ---
Author Organization [facility] Address [address] 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
--- OUTSIDE RECORDS SUMMARY | 2025-06-20 12:35 | XMS_ITS | Encounter Summary ---
Author Organization [employer] ([place], [place], [place], [place], [place]) Address [address] [place] [address] Care Team Providers Care Pouncer Machine Name Role Phone Unavailable Primary Care Provider Unavailabl e Encounter Details Date Type Department Care Team (Late st Contact Info) Description 01/04/2020 Transcribed Document [facility] [place] [address] [place] [address] ProviderLaury MD [address] [place] [address] Social History Tobacco Use Types Packs/Day [...] - 01/04/2020 9:08 EDT Electronically signed by Rochelle, Zuleyka Conversion Technical Staff Assistant Cerner at 11/02/2022 10:09 AM CDT documented in this encounter Plan of Treatment Not on file documented as of this encounter Visit Diagnoses Not on filedocumented in this encounter
--- OUTSIDE RECORDS SUMMARY | 2025-06-20 12:35 | XMS_ITS | Encounter Summary ---
Author Organization [employer] ([place], [place], [place], [place], [place]) Address [address] [place] [address] Care Team Providers Care Bilingual Medical Receptionist Name Role Phone Unavailable Primary Care Provider Unavailabl e Encounter Details Date Type Department Care Team (Late st Contact Info) Description 01/04/2020 Transcribed Document [facility] [address] [place] [address] ProviderLaury MD [address] [place] [address] Social History Tobacco Use Types Packs/Day [...] Policy Numbers : Insurance 1 Health Plan: [facility] Policy Number: [id number] Authorization Number: [id number] Insurance Primary Name : [facility] Policy Number: [id number] Authorization Status-Primary : Admit approved Reference Number-Primary : [id number] Authorization Number-Primary : [id number] Number of Days Authorized-Primary : 0 Day(s) Authorized Service Begin Date-Primary : 01/04/2020 EDT Authorized Service End Date-Primary : 01/04/2020 EDT Historical Authorization Comments-Primary : Comment 1: [employer] approved per website for 1 day inpt (MANOJ HWANG RN-Utilization Review 12/28/2019 11:50) MANOJ HWANG RN-Utilization Review - 01/04/2020 14:12 EDT Electronically signed by Zuleyka Byrd Conversion Overlock Sewing Machine Operator Cerner at 11/02/2022 10:15 AM CDT documented in this encounter Plan of Treatment Not on file documented as of this encounter Visit Diagnoses Not on filedocumented in this encounter
--- OUTSIDE RECORDS SUMMARY | 2025-06-20 12:35 | XMS_ITS | Encounter Summary ---
Author Organization [employer] ([place], [place], [place], [place], [place]) Address [address] [place] [address] Care Team Providers Care Administrative Support Manager Name Role Phone Unavailable Primary Care Provider Unavailabl e Encounter Details Date Type Department Care Team (Late st Contact Info) Description 01/19/2020 Transcribed Document [facility] [place] [address] [place] [address] ProviderLaury MD [address] [place] [id number] Social History Tobacco Use Types Packs/Day Years [...] pharmacies and retail stores. ??? Eat bland, bxhh-xl-mnmoeb foods in small amounts as you are [...] and water are not available, use hand still operator brandy. Make sure that everyone in your household washes their hands frequently. ??? Take hgvq-yxv-snqxckq and prescription medicines only as told by [...] and water are not available, use hand still operator brandy. Make sure that everyone in your household [...] 07/30/2016 Document Revised: 12/12/2018 Document Reviewed: 12/12/2018 [employer] Interactive Patient Education ? 2020 [employer] Inc. Endocrinology Hypoglycemia Hypoglycemia occurs when the [...] instructions at home: General instructions ??? Take jbzm-kkh-gkxksxy and prescription medicines only as told by [...] 07/04/2006 Document Revised: 12/26/2018 Document Reviewed: 08/06/2016 [employer] Interactive Patient Education ? 2020 [employer] documented in this encounter Plan of Treatment Not on file documented as of this encounter Visit Diagnoses Not on filedocumented in this encounter
--- OUTSIDE RECORDS SUMMARY | 2025-06-20 12:35 | XMS_ITS | Encounter Summary ---
Author Organization [employer] ([place], [place], [place], [place], [place]) Address [address] [place] [address] Care Team Providers Care Fitting Room Attendant Name Role Phone Unavailable Primary Care Provider Unavailabl e Encounter Details Date Type Department Care Team (Late st Contact Info) Description 01/19/2020 Transcribed Document [facility] [place] Family [place] [address] [place] [address] ProviderLaury MD [address] [place] [address] Social History Tobacco Use Types Packs/Day Years [...] Physician Requested for Consult : LARRY MARTINES [facility] Physician Covering for Consult : LARRY MARTINES MD-BRANDEE Date and Time Call Returned : 01/19/2020 9:04 EDT ASPEN CROWDER - 01/19/2020 9:04 EDT Electronically signed by Rochelle [facility] Conversion Decorative Engraver Cerner at 11/02/2022 10:05 AM CDT documented in this encounter Plan of Treatment Not on file documented as of this encounter Visit Diagnoses Not on filedocumented in this encounter
--- OUTSIDE RECORDS SUMMARY | 2025-06-20 12:35 | XMS_ITS | Encounter Summary ---
Author Organization [facility] Address [address] 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
--- OUTSIDE RECORDS SUMMARY | 2025-06-20 12:35 | XMS_ITS | Encounter Summary ---
Author Organization [employer] ([place], [place], [place], [place], [place]) Address [address] [place] [address] Care Team Providers Care Production Foreman Name Role Phone Unavailable Primary Care Provider Unavailabl e Encounter Details Date Type Department Care Team (Late st Contact Info) Description 01/19/2020 Transcribed Document [facility] [place] Family Medicine [address] [place] [address] ProviderLaury MD [address] [place] [address] [phone] Social History Tobacco Use Types Packs/Day Years [...] documented in chart. Surgical history: section x2 ([id number]). Dilation and curettage ([id number]). Tubal ligation ([id number]). wisdom teeth. kidney biopsy. EGD. Stomach biopsy. Gastric sleeve ([id number]).. Family history: Not significant, No family history [...] EDT Height Source Stated Height Entry Format Thida Height/Length, ARGENTINE (ft) 5 ft Height/Length ARGENTINE 5 Inch CLINICALHEIGHT 165.1 cm [place] Body Weight 56.59 kg Weight Source, ED Standing scale Weight Entry Format Thida Weight New Zealander lb 230.8 lb CLINICALWEIGHT 104.91 kg Body [...] 39.0 % Lymph # 3.92 K/uL HI [place] % 7.3 % [place] # 0.73 K/uL Eos % 2.4 % Eos # 0.24 K/uL Baso % 0.4 % Baso # 0.04 K/uL Slide Review No IG# 0 x10(3)/uL IG% 0 % . Notes: Preliminary ReportNAME:FREDDIE ARCHER / SEX:1990 / FemaleMRN / ACC#:[id number] / [id number] ORDERING PHYSICIAN:Ordering Provider, UpdateEXAM REQUESTED:[id number]--UT ABDOMEN & PELVIS W/O CONTRAST [facility]IST NAME:MD As[facility]:status post gastric sleeve surgery on [...] No rash, no cyanosis, capillary refill brisk ELECTRONICS TECHNOLOGY DEPARTMENT CHAIR: Awake alert oriented ??4, nonfocal exam Psych: [...]
--- OUTSIDE RECORDS SUMMARY | 2025-06-20 12:35 | XMS_ITS | Encounter Summary ---
Author Organization [employer] ([place], [place], [place], [place], [place]) Address [address] [place] [address] Care Team Providers Care Vice President Of Talent Acquisition Name Role Phone Unavailable Primary Care Provider Unavailabl e Encounter Details Date Type Department Care Team (Late st Contact Info) Description 01/04/2020 Transcribed Document [facility] [place] [address] [place] [address] ProviderLaury MD [address] [place] [address] Social History Tobacco Use Types Packs/Day [...] 01/04/2020 19:04 EDT Electronically signed by Rochelle [facility] Conversion Microbiological Laboratory Technician Cerner at 11/02/2022 10:03 AM CDT documented in this encounter Plan of Treatment Not on file documented as of this encounter Visit Diagnoses Not on filedocumented in this encounter
--- OUTSIDE RECORDS SUMMARY | 2025-06-20 12:35 | XMS_ITS | Encounter Summary ---
Author Organization [employer] ([place], [place], [place], [place], [place]) Address [address] [place] [address] Care Team Providers Care Washer Repairman Name Role Phone Unavailable Primary Care Provider Unavailabl e Encounter Details Date Type Department Care Team (Late st Contact Info) Description 08/24/2019 Transcribed Document [facility] [place] [address] [place] [address] ProviderLaury MD [address] [place] [address] Social History Tobacco Use Types Packs/Day [...] Historical ProviderMD - 08/24/2019 11:11 AM SENIOR MICROSOFT NET DEVELOPER [facility] Endo IntraOp Summary Primary Physician: LARRY MARTINES MD-SUR Finalized Date/Time: 08/24/19 12:55:12 Pt. Name: FREDDIE RUGGIERO FELICIA /Sex: 1990 Female Med Rec #: [id number] Physician: LARRY MARTINES MD-SUR Financial #: [id number] Pt. Type: O Room/Bed: [facility] Admit/Disch: 08/24/19 09:42:00 - Institution: [facility] Endo - Case Attendance Entry 1 Entry 2 Entry 3 Case Attendee LARRY MARTINES Childress, TOBI J, RN ELLIOTT MOURA TECH MD-SUR Role Performed Surgeon/Proceduralist, Ict Support Engineer, First Scrub, First First Time In 08/24/19 11:09:00 08/24/19 11:09:00 08/24/19 11:09:00 Time Out 08/24/19 11:15:00 08/24/19 11:15:00 08/24/19 11:15:00 Procedure Gastric Biopsy Esophagogastroduodenosco Esophagogastroduodenosco py, Gastric Biopsy py, Gastric Biopsy Other Attendee Superficial Wound Closed By: Last Modified By: ANGE Green RN Childress, TOBI J, RN Childress, TOBI J, RN 08/24/19 11:14:47 08/24/19 11:14:47 08/24/19 11:14:47 Entry 4 Case Attendee MARGRET MCCULLOUGH PLANER OPERATOR / GRADER Role Performed PLANER OPERATOR / GRADER/Nurse Sports Coordinator Time In 08/24/19 11:09:00 Time Out 08/24/19 11:15:00 Procedure Esophagogastroduodenosco py, Gastric Biopsy Other Attendee Superficial Wound Closed By: Last Modified By: ANGE Green RN 08/24/19 11:14:47 [facility] Endo - Case Attendance Audit 08/24/19 11:14:47 Counter Tender: GEOVANNA Modifier: [email or web address] 1 <+> Time Out 1 <*> Procedure Gastric Biopsy 2 <+> Time Out 2 <*> Procedure Esophagogastroduodenoscopy, Gastric Biopsy 3 <+> Time Out 3 <*> Procedure Esophagogastroduodenoscopy, Gastric Biopsy 4 <+> Time Out 4 <*> Procedure Esophagogastroduodenoscopy, Gastric Biopsy 08/24/19 11:12:38 Counter Tender: [email or web address] Modifier: [email or web address] <+> 1 Procedure 2 <*> Procedure Esophagogastroduodenoscopy 3 <*> Procedure Esophagogastroduodenoscopy 4 <*> Procedure Esophagogastroduodenoscopy 08/24/19 11:11:44 Counter Tender: [email or web address] Modifier: HOLMESTJ 2 <+> Time In [...] Endo - Case Times Audit 08/24/19 11:13:59 Counter Tender: HOLMESTJ Modifier: HOLMESTJ <+> 1 Out Room Time <+> 1 Stop Time <+> 1 Stop Time 08/24/19 11:11:59 Counter Tender: [email or web address] Modifier: HOLMESTJ <+> 1 Start Time [facility] - Cultures and Spec Summary Entry 1 Cultrures and Specimens Specimen Ordered: Yes Last Modified By: ANGE Green RN 08/24/19 11:14:38 [facility] - Delays Entry 1 Delay Reason Other Duration 0 Minute(s) Comment NO DELAY Last Modified By: ANGE Green RN 08/24/19 11:09:48 [facility] - Delays Audit 08/24/19 11:09:48 Counter Tender: [email or web address] Modifier: [email or web address] <+> 1 Comment [facility] [...] Modified By: ANGE Green RN 08/24/19 11:09:51 [facility] Endo - Fire Risk Assessment Entry 1 Fire Info Surgical Site or 1- Yes Incision Above the Xyphoid Open O2 Source 1- Yes (Mask or Cannula) Available Ignition 1- Yes (ESU, Laser, Light Source) Fire Risk 3 Assessment Score Fire Score Fire Risk Yes Assessment Complete Fire Risk ANGE Green mark up designer Verified By Fire Risk 08/24/19 11:10:00 Assessment Verified Date/Time Fire Risk High Risk Protocol Yes Implemented Standard Fire Yes Safety Precautions Followed Last Modified By: ANGE Green RN 08/24/19 11:10:04 [facility] Endo - General Case Channeler Insole 1 Case Information OR Endo 01 [facility] Case Level 1 Room Verified Yes Wound Class II - Clean-Contaminated Specialty SN General Anesthesia Type MAC ASA Class 3 Diagnosis Preop Diagnosis GERD Postop Same As Preop No Postop Diagnosis normal EGD Last Modified By: ANGE Green RN 08/24/19 11:11:13 [facility] Endo - General Case Data Audit 08/24/19 11:14:21 Counter Tender: GEOVANNA Modifier: [email or web address] <+> 1 Postop Diagnosis [facility] Endo - Intraoperative Assessment Entry 1 Valid History / Yes Physical in Chart Preoperative Yes Checklist Reviewed/Evaluated Allergies Reviewed Yes Patient is Latex No Sensitive Level of WDL Consciousness (WDL = Alert, Oriented to Person, Place, and Time) Present Upon IVs, ECG monitored Arrival to OR Prosthetic/Assistive Insulin pump Devices Last Modified By: ANGE Green RN 08/24/19 11:11:51 [facility] Endo - Intraoperative Assessment Audit 08/24/19 12:55:06 Counter Tender: GEOVANNA Modifier: [email or web address] <+> 1 Prosthetic/Assistive Devices [facility] Endo - Intraoperative Equipment Entry 1 Type [...] Endo - Patient Positioning Audit 08/24/19 11:12:40 Counter Tender: GEOVANNA Modifier: HOLMESTJ 1 <*> Procedure Esophagogastroduodenoscopy [...] related to extraneous objects Last Modified By: AGNE Green RN 08/24/19 11:14:13 [facility] - Sign Out Audit 08/24/19 11:14:13 Counter Tender: GEOVANNA Modifier: HOLMESTJ <+> 1 RN Sign [...] TOBI J, RN 08/24/19 11:12:34 08/24/19 11:12:34 [facility] Endo - Surgical Procedures Audit 08/24/19 11:14:04 Counter Tender: GEOVANNA Modifier: HOLMESTGiacomo <+> 1 Stop <+> 2 Stop [facility] End[facility] - Time Out Entry 1 Procedure [...] Modified By: ANGE Green RN 08/24/19 11:12:41 [facility] Endo - Time Out Audit 08/24/19 11:12:41 Counter Tender: GEOVANNA Modifier: HOLMESTJ 1 <*> Procedure to be Performed Esophagogastroduodenoscopy 08/24/19 11:12:26 Counter Tender: GEOVANNA Modifier: HOLMESTJ 1 <*> Beta Renae [...] GEOVANNA Correct Documentation Electronically signed by Rochelle [facility] Conversion Iuss Analyst Cerner at 11/02/2022 10:11 AM CDT documented in this encounter Plan of Treatment Not on file documented as of this encounter Visit Diagnoses Not on filedocumented in this encounter
--- OUTSIDE RECORDS SUMMARY | 2025-06-20 12:35 | XMS_ITS | Encounter Summary ---
Author Organization [employer] ([place], [place], [place], [place], [place]) Address [address] [place] [address] Care Team Providers Care Senior Scrum Master Name Role Phone Unavailable Primary Care Provider Unavailabl e Encounter Details Date Type Department Care Team (Late st Contact Info) Description 01/04/2020 Transcribed Document [facility] [place] [address] [place] [address] ProviderLaury MD [address] [place] [address] Social History Tobacco Use Types Packs/Day [...] Laparoscopic sleeve gastrectomy SURGEON: Xavi Mejia M.D. FOAM MOLDER: Daniel steinberg MD ANESTHESIA: General. SPECIMEN: Stomach. INDICATION FOR PROCEDURE: is a 29-year-old patient with prison history of morbid obesity and CKD, has [...] was done, we proceeded to place the 54-Ecuadorean bougie down the esophagus into the stomach under direct visualization. When it was in the antrum, we proceeded to staple the stomach in a parallel manner to the greater curvature, creating a sleeve gastrectomy using the [place] stapler. We used green loads, all reinforced [...]
--- OUTSIDE RECORDS SUMMARY | 2025-06-20 12:35 | XMS_ITS | Clinical Summary ---
Author Organization [facility] Address [address] [place] [address] Care Team Providers Care Bill Recapitulation Clerk Name Role Phone Jaquan Conley MD Primary Care Provider + [phone] Allergies Active Allergy Reactions Criticality Noted Date [...] TIMES DAILY 100 each 5 025 Active Semaglutide, 1 MG/DOSE, (Ozempic, 1 MG/DOSE,) 4 MG/3ML solution pen-injectorInd ications:Type 2 diabetes mellitus with other specified complication, with long-term current use of insulin INJECT 1MG SUBCUTANEOUSLY ONCE A WEEK 3 mL 2 025 Active Ozempic, 1 MG/DOSE, 4 MG/3ML solution pen-injectorInd ications:Type 2 diabetes mellitus with other specified complication, with long-term current use of insulin INJECT 1MG SUBCUTANEOUSLY ONCE A WEEK 3 mL 025 2024 Discontinued Active Problems Problem Noted [...] Encounters Date Type Department Care Team Description 06/15/2025 Refill [facility] Endocrinology [address] [place] [address] Paz Echeverria MD Type 2 diabetes mellitus with other specified complication, with long-term current use of insulin 05/21/2025 Refill [facility] Endocrinology [address] [place] [address] Paz Echeverria MD Type 2 diabetes mellitus with other specified complication, with long-term current use of insulin from Last 3 Months Immunizations Immunization Administration [...] [facility]-HIV Screening 1990 [facility]-/Child/Adol SDOH Screenings 1990 [id number]-10 Vaccine (#1) 1994 Diabetes: Dental Exam 1999 [...] complication, with long-term current use of insulin ([facility]) CYTO DATA CONVERSION Routine 10/29/2014 12:00 AM EDT from Last 3 Months or Most Recently Relevant to Health Maintenance Results * (ABNORMAL) POCT glycosylated hemoglobin (Hb A1C) (05/23/2024 11:03 AM EST) POCT Hemoglobin A1C 5.8 <5.7% Non-Diabe tic % [facility] Kit Lot Number [id number] [facility] Kit Expiration Date 03/17/2026 [facility] Blood Venous blood specimen / Unknown 05/23/2024 11:03 AM EST Erica MENDEZ POINT OF CARE TEST EN TER/EDIT ORDERABLES Final Result [facility] [address] [place] [address] * Cytology (10/29/2014 12:00 AM EDT) 10/29/2014 10/31/2014 12: 33 PM EDT Narrative [facility] - 11/06/2014 11:15 AM EDT [facility] MR #: [id number] [facility] FREDDIE [address] [place] [id number] 1990 (Age: 24) FW Collect Date: 10/29/2014 00:00 Receipt Date: 10/31/2014 12:33 Page 1 DEPARTMENT OF PATHOLOGY AND LABORATORY MEDICINE CYTOPATHOLOGY REPORT Email: [phone] ATTENDING MD/Practitioner: John Celestin APRN Service: [facility] Location: OUTS Reported: 11/06/2014 11:15 Collected: 10/29/2014 00:00 INTERPRETATION A. THIN PREP (CERVICAL/VAGINAL): NEGATIVE FOR INTRAEPITHELIAL LESION OR MALIGNANCY. SATISFACTORY FOR EVALUATION; ENDOCERVICAL/ TRANSFORMATION ZONE COMPONENT PRESENT. Slide scanned and imaged by [employer] ThinPrep Imaging System with manual review of [...] results is suggested (please call Microbiology at [phone] for results). CLINICAL INFORMATION: Menstrual History: Cyclic Date of Last Menstrual Period: 10/03/14 Other Clinical Conditions: If ASCUS and > 24 years of age, HPV/DNA testing requested. SPECIMEN DESCRIPTION: A: THIN PREP (CERVICAL/VAGINAL) THIN PREP PROCESS CELLULAR ENHANCEMENT ICD: F: A; RT IMAGE [id number] SNOMED CODES: A; [id number] [id number] In cases where a pathologist has signed out the report, the service has been rendered in part by a resident. The signing pathologist has performed and is responsible for the reported pathologic evaluation. us Historical Provider LAB PATHOLOGY ORDERABLES Fin al Result [facility] from Last 3 Months or Most Recently Relevant to Health Maintenance Insurance [employer] Care Teams Bill Recapitulation Clerk Relationship Specialty Start Date End Date Jaquan Conley MD [address] [place] [address] PCP - General 11/28/20
--- OUTSIDE RECORDS SUMMARY | 2025-06-20 12:35 | XMS_ITS | Encounter Summary ---
Author Organization [employer] ([place], [place], [place], [place], [place]) Address [address] [place] [address] Care Team Providers Care Telecommunications Line Mechanic Name Role Phone Unavailable Primary Care Provider Unavailabl e Encounter Details Date Type Department Care Team (Late st Contact Info) Description 09/28/2019 Transcribed Document [facility] [place] Family Medicine [address] [place] [address] ProviderLaury MD [address] [place] [address] Social History Tobacco Use Types Packs/Day [...] Policy Numbers : Insurance 1 Health [facility]: [facility] Policy Number: [id number] Authorization Number: Insurance Primary Name : [facility] Policy Number: [id number] Authorization Status-Primary : Admit approved Reference Number-Primary : [id number] Authorization Number-Primary : [id number] Number of Days Authorized-Primary : 0 Day(s) [...]
--- OUTSIDE RECORDS SUMMARY | 2025-06-20 12:35 | XMS_ITS | Encounter Summary ---
Author Organization [employer] ([place], [place], [place], [place], [place]) Address [address] [place] [address] Care Team Providers Care Collar Tailor Name Role Phone Unavailable Primary Care Provider Unavailabl e Encounter Details Date Type Department Care Team (Late st Contact Info) Description 01/18/2020 Transcribed Document [facility] [place] [address] [place] [address] ProviderLaury MD [address] [place] [address] Social History Tobacco Use Types Packs/Day [...] Communication Barrier : None Primary Language : Montenegrin Any Spiritual/Cultural Needs or Requests : No [...] 01/18/2020 21:30 EDT Electronically signed by Rochelle [facility] Conversion Hospital Receiving Clerk Cerner at 11/02/2022 10:12 AM CDT documented in this encounter Plan of Treatment Not on file documented as of this encounter Visit Diagnoses Not on filedocumented in this encounter
--- OUTSIDE RECORDS SUMMARY | 2025-06-20 12:35 | XMS_ITS | Encounter Summary ---
Author Organization [employer] ([place], [place], [place], [place], [place]) Address [address] [place] [address] Care Team Providers Care Director Business Travel Name Role Phone Unavailable Primary Care Provider Unavailabl e Encounter Details Date Type Department Care Team (Late st Contact Info) Description 01/18/2020 Transcribed Document [facility] [place] Family Medicine [address] [place] [address] ProviderLaury MD [address] [place] [address] Social History Tobacco Use Types Packs/Day [...] EDT DCP GENERIC CODE Tracking Group : [facility] Tracking Acuity : 2 - Emergent [...] Problems(Active) At risk for sleep apnea (IMO :53556680 ) Name of Problem: At risk for sleep apnea ; Recorder: SYSTEM, SYSTEM; Confirmation: Confirmed ; Classification: Medical ; Code: 84864363 ; Last Updated: 08/24/2019 10:25 EST ; Life Cycle Date: 08/24/2019 ; Life Cycle Status: Active ; Vocabulary: IMO DM (diabetes mellitus) (SNOMED CT :255544380 ) Name of Problem: DM (diabetes mellitus) ; Recorder: ANGE Green RN; Confirmation: Confirmed ; Classification: Medical ; Code: 724401038 ; Contributor System: PowerChart ; Last Updated: 08/24/2019 10:17 EST ; Life Cycle Date: 08/24/2019 ; Life Cycle Status: Active ; Vocabulary: SNOMED CT HTN (hypertension) (SNOMED CT :9899852187 ) Name of Problem: HTN (hypertension) ; Recorder: ANGE Green RN; Confirmation: Confirmed ; Classification: Medical ; Code: 4647836440 ; Contributor System: PowerChart ; Last Updated: 08/24/2019 10:16 EST ; Life Cycle Date: 08/24/2019 ; Life Cycle Status: Active ; Vocabulary: SNOMED CT Hyperkalemia (SNOMED CT :85068226 ) Name of Problem: Hyperkalemia ; Recorder: Noelle Umanzor Rn; Confirmation: Confirmed ; Classification: Medical ; Code: 44102252 ; Contributor System: PowerChart ; Last Updated: 10/03/2019 10:52 EDT ; Life Cycle Date: 10/03/2019 ; Life Cycle Status: Active ; Vocabulary: SNOMED CT Hyperlipemia (SNOMED CT :70849067 ) Name of Problem: Hyperlipemia ; Recorder: ANGE Green RN; Confirmation: Confirmed ; Classification: Medical ; Code: 32469249 ; Contributor System: PowerChart ; Last Updated: 08/24/2019 10:17 EST ; Life Cycle Date: 08/24/2019 ; Life Cycle Status: Active ; Vocabulary: SNOMED CT Kidney disease (SNOMED CT :441860326 ) Name of Problem: Kidney disease ; Recorder: ANGE Green RN; Confirmation: Confirmed ; Classification: Medical ; Code: 276585850 ; Contributor System: PowerChart ; Last Updated: 08/24/2019 10:17 EST ; Life Cycle Date: 08/24/2019 ; Life Cycle Status: Active ; Vocabulary: SNOMED CT Neuropathy (SNOMED CT :4725404648 ) Name of Problem: Neuropathy ; Recorder: ANGE Green RN; Confirmation: Confirmed ; Classification: Medical ; Code: 6153244388 ; Contributor System: PowerChart ; Last Updated: 08/24/2019 10:18 EST ; Life Cycle Date: 08/24/2019 ; Life Cycle Status: Active ; Vocabulary: SNOMED CT Retinopathy (SNOMED CT :57773980 ) Name of Problem: Retinopathy ; Recorder: Noelle Umanzor Rn; Confirmation: Confirmed ; Classification: Medical ; Code: 94424256 ; Contributor System: PowerChart ; Last Updated: 10/03/2019 10:52 EDT ; Life Cycle Date: 10/03/2019 ; Life Cycle Status: Active ; Vocabulary: SNOMED CT Diagnoses(Active) Dehydration Date: 01/18/2020 ; Diagnosis Type: Reason For Visit ; Confirmation: Complaint of ; Clinical Dx: Dehydration ; Classification: Medical ; Clinical Service: Emergency medicine ; Code: PNED ; Probability: 0 ; Diagnosis Code: [id number] Vomiting Date: 01/18/2020 ; Diagnosis Type: Reason For Visit ; Confirmation: Complaint of ; Clinical Dx: Vomiting ; Classification: Medical ; Clinical Service: Emergency medicine ; Code: PNED ; Probability: 0 ; Diagnosis Code: [id number] ED Height and Weight Height Source : Stated Height Entry Format : [place] Height, Feet : 5 ft(Converted to: 152 cm, 60 Inch) Height, Inches : 5 Inch(Converted to: 0 ft 5 Inch, 12.70 cm) Clinical Height : 165.1 cm Weight Source, ED : Standing scale Weight Entry Format : [place] Weight, Pounds : 230.8 lb Clinical Dosing Weight : 104.91 kg Body Surface Area (BSA) : 2.1 m2 Body Mass Index : 38.5 kg/m2 (HI) Wilson Body Weight (IBW) : 56.59 kg MARKIE PANG RN - 01/18/2020 20:31 EDT documented in this encounter Plan of Treatment Not on file documented as of this encounter Visit Diagnoses Not on filedocumented in this encounter
--- OUTSIDE RECORDS SUMMARY | 2025-06-20 12:35 | XMS_ITS | Encounter Summary ---
Author Organization [facility] Address [address] [place] [address] Care Team Providers Care Hog Ribber Name Role Phone Jaquan Conley MD Primary Care Provider + [phone] Encounter Details Date Type Department Care Team (Late st Contact Info) Description 10/18/2018 [facility] Historical OTTR [address] [place] [address] Yris Schwarz, RN [facility]ISTR[facility] None Social [...] currently from her , lives with her lesley who would be her caregiver following transplant. [...] in nephrology clinic note that she left [facility] after admission for increasing creatinine and e. coli UTI, consider starting with social work. She also initially stated didn't want to pursue kidney transplant if she couldn't get a pancreas at same time. * Progress Notes - Hilaria Hsu - 08/16/2018 9:25 AM EST Start eval with ; pt left [facility] records. Pt has been 5 times; has 2 children, one of which is in [place] with her latest . documented in this encounter Plan of Treatment Not on file documented as of this encounter Visit Diagnoses Not on filedocumented in this encounter Care Teams Hog Ribber Relationship Specialty Start Date End Date Jaquan Conley MD [address] [place] [address] PCP - General 11/28/20 documented as of this encounter
--- OUTSIDE RECORDS SUMMARY | 2025-06-20 12:35 | XMS_ITS | Encounter Summary ---
Author Organization [employer] ([place], [place], [place], [place], [place]) Address [address] [place] [address] Care Team Providers Care Estate Planning Attorney Name Role Phone Unavailable Primary Care Provider Unavailabl e Encounter Details Date Type Department Care Team (Late st Contact Info) Description 01/19/2020 Transcribed Document [facility] [place] [address] [place] [address] ProviderLaury MD [address] [place] [address] Social History Tobacco Use Types Packs/Day [...]
--- OUTSIDE RECORDS SUMMARY | 2025-06-20 12:36 | XMS_ITS | Encounter Summary ---
Author Organization [employer] ([place], [place], [place], [place], [place]) Address [address] [place] [address] Care Team Providers Care Crime Prevention Worker Name Role Phone Unavailable Primary Care Provider Unavailabl e Encounter Details Date Type Department Care Team (Late st Contact Info) Description 01/08/2019 Transcribed Document [facility] [place] Family Medicine [address] [place] [address] ProviderLaury MD [address] [place] [address] [id number] Social History Tobacco Use Types Packs/Day Years [...] Laury ProviderMD - 01/08/2019 12:31 AM CDT [facility] ADDRESS [place], [place] [phone] Name:Crystal Archer Visit Date:01/07/2019 18:52:00 Emergency Department Care Providers: Physician: Physician: Our doctors and staff appreciate your choice of [facility] for your emergency medical care. Read these instructions carefully. Please call us if you have any questions about your medical problem. [facility] Emergency Department [phone] [facility] Emergency Department [phone] [facility] Emergency Department [phone] Patient Education Materials Gianni Crystal Jones has [...] x-ray department to pick them up o [facility] # [phone] o [facility] # [phone] o [facility] # [phone] ?? If you had cultures done and [...] quit. o National Network of Tobacco Cessation [id number]-AAOO-NOW o [place]alese Lung Association o [place]alese Heart Association [phone] o Sai/Manuel Mahendra [phone] FINANCIAL INFORMATION ?? [facility] provides financial counseling to anyone who requests our services. ?? Emergency Physicians are independently contracted to provide your care. You will receive a bill for the care provided to you by the Physician and/or the Physician Gaggerman. This will be a separate bill from [...] as recommended Patient Signature / or Patient Garbage Truck Dispatcher Provider Signature Date Date/Time 01/07/2019 20:31 Saint [...]
--- OUTSIDE RECORDS SUMMARY | 2025-06-20 12:36 | XMS_ITS | Encounter Summary ---
Author Organization [employer] ([place], [place], [place], [place], [place]) Address [address] [place] [address] Care Team Providers Care Clarity Specialists Name Role Phone Unavailable Primary Care Provider Unavailabl e Encounter Details Date Type Department Care Team (Late st Contact Info) Description 12/24/2018 Transcribed Document [facility] Family Medicine [address] [place] [address] ProviderLaury MD [address] [place] [address] Social History Tobacco Use Types Packs/Day [...] Laury ProviderMD - 12/24/2018 7:19 PM CDT [facility] ADDRESS [place], [place] [phone] Name:Crystal Archer Visit Date:12/24/2018 15:01:00 Emergency Department Care Providers: Physician: MEGHA MAN Physician: Our doctors and staff appreciate your choice of [facility] for your emergency medical care. Read these instructions carefully. Please call us if you have any questions about your medical problem. [facility] Emergency Department [phone] [facility] Emergency Department [phone] [facility] Emergency Department [phone] Patient Education Materials Gianni Crystal Jones has [...] Medicines may be prescribed or be available abpj-lmn-rhtcdoq. The medicines may be: ??? Taken by mouth (orally). ??? Applied as a cream. Follow these instructions at home: ??? Take or apply hsyr-zbl-gawqdeo and prescription medicines only as told by [...] 03/21/2012 Document Revised: 02/27/2017 Document Reviewed: 01/05/2016 CurTran Interactive Patient Education ? 2019 [employer]. FOLLOW UP CARE Most conditions that require [...] up o [facility] # [phone] o [facility] # [phone] o [facility] # [phone] ?? If you had cultures done and [...] quit. o National Network of Tobacco Cessation [id number]-YURH-NOW o [place] Lung Association o [place] Heart Association [phone] o Sai/Manuel Mccray [phone] FINANCIAL INFORMATION ?? [facility] provides financial counseling to anyone who requests our services. ?? Emergency Physicians are independently contracted to provide your care. You will receive a bill for the care provided to you by the Physician and/or the Physician Instrument Man. This will be a separate bill from [...] as recommended Patient Signature / or Patient Rn Military Provider Signature Date Electronically signed by Rochelle, [facility] Conversion Roll Carrier Cerner at 10/19/2022 11:23 AM CDT documented in this encounter Plan of Treatment Not on file documented as of this encounter Visit Diagnoses Not on filedocumented in this encounter
--- OUTSIDE RECORDS SUMMARY | 2025-06-20 12:36 | XMS_ITS | Encounter Summary ---
Author Organization [employer] ([place], [place], [place], [place], [place]) Address [address] [place] [address] Care Team Providers Care Computer Technology Teacher Name Role Phone Unavailable Primary Care Provider Unavailabl e Encounter Details Date Type Department Care Team (Late st Contact Info) Description 11/19/2018 Transcribed Document [facility] Family Medicine [address] [place] [address] ProviderLaury MD [address] [place] [address] Social History Tobacco Use Types Packs/Day [...] Laury ProviderMD - 11/19/2018 1:52 AM CDT [facility] ADDRESS [place], [place] [phone] Name:Crystal Archer Visit Date:11/18/2018 20:06:00 Emergency Department Care Providers: Physician: Clara Elias Phys Asst Physician: Our doctors and staff [facility]. Read these instructions carefully. Please call us if you have any questions about your medical problem. [facility] Emergency Department [phone] [facility] Emergency Department [phone] [facility] Emergency Department [phone] Patient Education Materials Surendradarvin Crystal Jones has [...] start to feel better. ??? Only take vskq-qvr-bkvzaen or prescription medicines for pain, discomfort, or [...] 01/29/2014 Elsevier Interactive Patient Education ? 2017 [employer] Obstetrics and Gynecology Urinary Tract Infection, Adult Introduction A urinary tract infection (UTI) is an infection of any part of the urinary tract. The urinary tract includes the: ??? Kidneys. ??? Ureters. ??? Bladder. ??? Urethra. These organs make, store, and get rid of pee (urine) in the body. Follow these instructions at home: ??? Take uboq-bkx-totuads and prescription medicines only as told by [...] x-ray department to pick them up o [facility] # [phone] o [facility] # [phone] o [facility] # [phone] ?? If you had cultures done and [...] quit. o National Network of Tobacco Cessation WAfnebrsb4-300-AVCK-NOW o [place] Lung Association o Citizen [place] Heart Association [phone] o Sia/Manuel Mccray [phone] FINANCIAL INFORMATION ?? [facility] provides financial counseling to anyone who requests our services. ?? Emergency Physicians are independently contracted to provide your care. You will receive a bill for the care provided to you by the Physician and/or the Physician Police Artist. This will be a separate bill from [...] Patient Education Materials: ENT Otitis Media, Adult, Vuyc-gn-Sioz Obstetrics and Gynecology Urinary Tract Infection, Adult, Fbpm-tf-Otms Follow-Up Instructions: Follow Up With: Where: When: [...] as recommended Patient Signature / or Patient Technician Telecommunication Systems Provider Signature Date documented in this encounter Plan of Treatment Not on file documented as of this encounter Visit Diagnoses Not on filedocumented in this encounter
--- OUTSIDE RECORDS SUMMARY | 2025-06-20 12:36 | XMS_ITS | Encounter Summary ---
Author Organization [employer] ([place], [place], [place], [place], [place]) Address [address] [place] [address] Care Team Providers Care Machine Stoppage Frequency Checker Name Role Phone Unavailable Primary Care Provider Unavailabl e Encounter Details Date Type Department Care Team (Late st Contact Info) Description 11/19/2018 Transcribed Document [facility] [place] [address] [place] [address] ProviderLaury MD [address] [place] [address] Social History Tobacco Use Types Packs/Day [...] : No GI 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 : No Senior Health Physics Technician Hx : No Heart Attack : [...] Preferred Communication Mode : Verbal Languages : Montenegrin Child/Parent Domestic Concerns : None Threats of Suicide : No Marry Erickson 11/18/2018 20:14 EDT Height and Weight Height Source : Stated Height Entry Format : [place] Height, Inches : 65 Inch(Converted to: 5 ft 5 Inch, 165.10 cm) Clinical Height : 165.1 cm Weight Source : Bed scale Weight Entry Format : [place] Weight, Pounds : 220 lb Clinical Dosing Weight : 100 kg Body Surface Area-(BSA) : 2.14 m2 Body Mass Index : 36.7 kg/m2 (HI) [place] Body Weight : 57 kg Marry Erickson [...]
--- OUTSIDE RECORDS SUMMARY | 2025-06-20 12:36 | XMS_ITS | Encounter Summary ---
Author Organization [employer] ([place], [place], [place], [place], [place]) Address [address] [place] [address] Care Team Providers Care Middle School Baseball Coach Name Role Phone Unavailable Primary Care Provider Unavailabl e Encounter Details Date Type Department Care Team (Late st Contact Info) Description 08/03/2018 Transcribed Document [facility] Family Medicine [address] [place] [address] ProviderLaury MD [address] [place] [address] Social History Tobacco Use Types Packs/Day [...] - Laury ProviderMD - 08/03/2018 7:32 PM STUD SHEEP FARMER [facility] Emergency Department Depart Summary PERSON INFORMATION Name Crystal Archer Age 27 Years 1990 Sex Female Language PCP Marital Status Phone [id number] Visit Id Visit Reason Specialty Enc Type Emergency Med Service Referred by Track Group [facility] Discharge Tracking Id [id number] Checkout 08/03/2018 14:32:57 Checkin 08/03/2018 13:52:00 Acuity 3 - Urgent [facility] Dispo Type Arrival 08/03/2018 13:52:00 Reg Status LOS 000 00:40 Address: [address] [place] [address] [place] [address] POWERFORMS PHYSICIAN NOTES VITALS INFORMATION Vital Sign Triage Temp 98.1 Temp Route Oral/Mouth Pulse Rate 90 Respiratory Rate 18 Blood Pressure 152/ 87 LOCATION INFORMATION Arrival Nurse Unit Room Bed 08/03/2018 13:52:00 [facility] ED Waitroom ([facility]) 08/03/2018 13:55:29 [facility] ED 3 08/03/2018 14:32:57 [facility] ED Checkout ([facility]) MEDICAL INFORMATION Allergy Info: No Known Allergies PATIENT EDUCATION INFORMATION Instructions: Follow up: DIAGNOSIS documented in this encounter Plan of Treatment Not on file documented as of this encounter Visit Diagnoses Not on filedocumented in this encounter
--- OUTSIDE RECORDS SUMMARY | 2025-06-20 12:36 | XMS_ITS | Encounter Summary ---
Author Organization [employer] ([place], [place], [place], [place], [place]) Address [address] [place] [address] Care Team Providers Care Galvanometer Assembler Name Role Phone Unavailable Primary Care Provider Unavailabl e Encounter Details Date Type Department Care Team (Late st Contact Info) Description 12/24/2018 Transcribed Document [facility] [place] [address] [place] [address] ProviderLaury MD [address] [place] [address] Social History Tobacco Use Types Packs/Day [...] - Non-urgent [facility] : [facility] [place] TomlinMaddi - 12/24/2018 15:05 EDT ED Visit Reason : Rash Primary Care Provider : Rema Ferreira, Food Safety Scientist Accompanied By : Family/Spouse/SO Arrival Mode : [...] : No GI 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 : No Balance Wheel Screw Hole Tapper Hx : No Heart Attack : No [...] Source : Stated Height Entry Format : [place] Height, Inches : 65 Inch(Converted to: 5 ft 5 Inch, 165.10 cm) Clinical Height : 165.1 cm Weight Source : Bed scale Weight Entry Format : [place] Weight, Pounds : 221 lb Clinical Dosing Weight : 100.45 kg Body Surface Area-(BSA) : 2.15 m2 Body Mass Index : 36.9 kg/m2 (HI) [place] Body Weight : 57 kg Maddi Tomlin [...]
--- OUTSIDE RECORDS SUMMARY | 2025-06-20 12:36 | XMS_ITS | Encounter Summary ---
Author Organization [employer] ([place], [place], [place], [place], [place]) Address [address] [place] [address] Care Team Providers Care Director Of Tax Services Name Role Phone Unavailable Primary Care Provider Unavailabl e Encounter Details Date Type Department Care Team (Late st Contact Info) Description 09/26/2018 Transcribed Document [facility] [place] [address] [place] [address] ProviderLaury MD [address] [place] [address] Social History Tobacco Use Types Packs/Day [...] Complaints Primary Care Provider : Rema Ferreira, Software Engineering Supervisor Accompanied By : Family/Spouse/SO Arrival Mode [...] : No GI 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 : No Resident Services Supervisor Hx : No Heart Attack : [...] Preferred Communication Mode : Verbal Languages : Grenadian Child/Parent Domestic Concerns : None Threats of Suicide : No Marry Erickson 09/26/2018 16:51 EDT Height and Weight Height Source : Stated Height Entry Format : [place] Height, Inches : 65 Inch(Converted to: 5 ft 5 Inch, 165.10 cm) Clinical Height : 165.1 cm Weight Source : Stated Type of Weight Measurement Est : [place] Weight, est lb : 213 lb Estimated Clinical Dosing Weight : 96.82 kg [place] Body Weight : 57 kg Body Surface [...] ; Status: Documented ; Ordered As Mnemonic: [place] 5 mg-325 mg oral tablet ; Simple [...]
--- OUTSIDE RECORDS SUMMARY | 2025-06-20 12:36 | XMS_ITS | Encounter Summary ---
Author Organization [employer] ([place], [place], [place], [place], [place]) Address [address] [place] [address] Care Team Providers Care Shop Superintendent Name Role Phone Unavailable Primary Care Provider Unavailabl e Encounter Details Date Type Department Care Team (Late st Contact Info) Description 01/07/[address] [facility] [place] Family Medicine [address] [place] [address] ProviderLaury MD [address] [place] [address] Social History Tobacco Use Types Packs/Day [...] - Urgent [facility] : [facility] [place] Sridhar, Pearl L - 01/07/2019 19:08 EDT [...] : No GI 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 : No Shampoo Person Hx : No Heart Attack : [...]
--- OUTSIDE RECORDS SUMMARY | 2025-06-20 12:36 | XMS_ITS | Encounter Summary ---
Author Organization [employer] ([place], [place], [place], [place], [place]) Address [address] [place] [address] Care Team Providers Care Front Office Coordinator Name Role Phone Unavailable Primary Care Provider Unavailabl e Encounter Details Date Type Department Care Team (Late st Contact Info) Description 10/31/2018 Transcribed Document [facility] Family Medicine [address] [place] [address] ProviderLaury MD [address] [place] [address] Social History Tobacco Use Types Packs/Day [...] Laury ProviderMD - 10/31/2018 1:17 AM CDT [facility] ADDRESS [place], [place] [phone] Name:Crystal Archer Visit Date:10/30/2018 20:23:00 Emergency Department Care Providers: Physician: MEGHA MAN Physician: Our doctors and staff appreciate your choice of [facility] for your emergency medical care. Read these instructions carefully. Please call us if you have any questions about your medical problem. [facility] Emergency Department [phone] [facility] Emergency Department [phone] [facility] Emergency Department [phone] Patient Education Materials Gianni Crystal Karen has [...] 10/19/2011 Document Revised: 11/11/2016 Document Reviewed: 06/30/2015 ElseWebNotes Interactive Patient Education ? 2017 [employer] FOLLOW UP CARE Most conditions that [...] them up o [facility] # [phone] o [facility] # [phone] o [facility] # [phone] ?? If you had cultures done and [...] quit. o National Network of Tobacco Cessation NGifrrhsd9-011-SKTJ-NOW o [place] Lung Association o [place] Heart Association [phone] o Sai/Manuel Mccray [phone] FINANCIAL INFORMATION ?? [facility] provides financial counseling to anyone who requests our services. ?? Emergency Physicians are independently contracted to provide your care. You will receive a bill for the care provided to you by the Physician and/or the Physician Director [facility]. This will be a separate bill from [...] as recommended Patient Signature / or Patient Assessment Director Provider Signature Date Date/Time 10/30/2018 21:17 Saint [...] Dose Frequency amLODIPine 2.5 mg oral tablet [place] 5 mg-325 mg oral tablet Comment: [...]
--- OUTSIDE RECORDS SUMMARY | 2025-06-20 12:36 | XMS_ITS | Encounter Summary ---
Author Organization [employer] ([place], [place], [place], [place], [place]) Address [address] [place] [address] Care Team Providers Care Toe Puncher Name Role Phone Unavailable Primary Care Provider Unavailabl e Encounter Details Date Type Department Care Team (Late st Contact Info) Description 01/08/2019 Transcribed Document [facility] [place] Family Medicine [address] [place] [address] ProviderLaury MD [address] [place] [address]1261 Social History Tobacco Use Types Packs/Day Years [...] Laury ProviderMD - 01/08/2019 12:31 AM CDT [facility] ADDRESS [place], [place] [phone] Name:Crystal Archer Visit Date:01/07/2019 18:52:00 Emergency Department Care Providers: Physician: Physician: Our doctors and staff appreciate your choice of [facility] for your emergency medical care. Read these instructions carefully. Please call us if you have any questions about your medical problem. [facility] Emergency Department [phone] [facility] Emergency Department [phone] [facility] Emergency Department [phone] Patient Education Materials Gianni Crystal Jones has [...] to pick them up o [facility] # [phone] o [facility] # [phone] o [facility] # [phone] ?? If you had cultures done and [...] quit. o National Network of Tobacco Cessation GGvtluiht4-423-QHSA-NOW o [place] Lung Association o [place] Heart Association [phone] o Sai/Manuel Mahendra [phone] FINANCIAL INFORMATION ?? [facility] provides financial counseling to anyone who requests our services. ?? Emergency Physicians are independently contracted to provide your care. You will receive a bill for the care provided to you by the Physician and/or the Physician Coremaker Floor. This will be a separate bill from [...] as recommended Patient Signature / or Patient Cotton Farmer Provider Signature Date documented in this encounter Plan of Treatment Not on file documented as of this encounter Visit Diagnoses Not on filedocumented in this encounter
--- OUTSIDE RECORDS SUMMARY | 2025-06-20 12:36 | XMS_ITS | Encounter Summary ---
Author Organization [employer] ([place], [place], [place], [place], [place]) Address [address] [place] [address] Care Team Providers Care Ncr Operator Name Role Phone Unavailable Primary Care Provider Unavailabl e Encounter Details Date Type Department Care Team (Late st Contact Info) Description 01/08/2019 Transcribed Document [facility] Family Medicine [address] [place] [address] ProviderLaury MD [address] [place] [address] Social History Tobacco Use Types Packs/Day [...] Laury ProviderMD - 01/08/2019 12:31 AM CDT [facility] Emergency Department Depart Summary PERSON INFORMATION Name Crystal Archer Age 28 Years 1990 Sex Female Language PCP Marital Status Phone [id number] Visit Id Visit Reason Specialty Enc Type Emergency Med Service Referred by Track Group [facility] Discharge Tracking Id [id number] Checkout 01/07/2019 20:31:56 Checkin 01/07/2019 18:52:00 Acuity 3 - Urgent [facility] Dispo Type Arrival 01/07/2019 18:52:00 Reg Status LOS 000 01:39 Address: [address] [place] [address] [place] [address] POWERFORMS PHYSICIAN NOTES VITALS INFORMATION Vital Sign Triage Temp 99.4 Temp Route Pulse Rate 96 Respiratory Rate 16 Blood Pressure 137/ 85 LOCATION INFORMATION Arrival Nurse Unit Room Bed 01/07/2019 18:52:00 [facility] ED Waitroom (K) 01/07/2019 20:31:56 [facility] ED Checkout (K) MEDICAL INFORMATION Allergy Info: NSAIDs PATIENT EDUCATION INFORMATION Instructions: Follow up: DIAGNOSIS documented in this encounter Plan of Treatment Not on file documented as of this encounter Visit Diagnoses Not on filedocumented in this encounter
--- OUTSIDE RECORDS SUMMARY | 2025-06-20 12:36 | XMS_ITS | Encounter Summary ---
Author Organization [employer] ([place], [place], [place], [place], [place]) Address [address] [place] [address] Care Team Providers Care Stock Room Manager Name Role Phone Unavailable Primary Care Provider Unavailabl e Encounter Details Date Type Department Care Team (Late st Contact Info) Description 12/24/2018 Transcribed Document [facility] Family Medicine [address] [place] [address] ProviderLaury MD [address] [place] [address] Social History Tobacco Use Types Packs/Day [...] Laury ProviderMD - 12/24/2018 7:19 PM CDT [facility] ADDRESS [place], [place] [phone] Name:Crystal Archer Visit Date:12/24/2018 15:01:00 Emergency Department Care Providers: Physician: MEGHA MAN Physician: Our doctors and staff appreciate your choice of [facility] for your emergency medical care. Read these instructions carefully. Please call us if you have any questions about your medical problem. [facility] Emergency Department [phone] [facility] Emergency Department [phone] [facility] Emergency Department [phone] Patient Education Materials Gianni Crystal Jones has [...] Medicines may be prescribed or be available bjwy-nhk-lfhefjj. The medicines may be: ??? Taken by mouth (orally). ??? Applied as a cream. Follow these instructions at home: ??? Take or apply vqbp-nfj-sicwvba and prescription medicines only as told by [...] 03/21/2012 Document Revised: 02/27/2017 Document Reviewed: 01/05/2016 [employer] Interactive Patient Education ? 2019 [employer]. FOLLOW UP CARE Most conditions that require [...] x-ray department to pick them up o [facility] # [phone] o [facility] # [phone] o [facility] # [phone] ?? If you had cultures done and [...] quit. o National Network of Tobacco Cessation PRggmcsgc4-963-WRLA-NOW o [place] Lung Association o [place] Heart Association [phone] o Sai/Manuel Mccray [phone] FINANCIAL INFORMATION ?? [facility] provides financial counseling to anyone who requests our services. ?? Emergency Physicians are independently contracted to provide your care. You will receive a bill for the care provided to you by the Physician and/or the Physician Illusionist. This will be a separate bill from [...] as recommended Patient Signature / or Patient Engine Room Operator Provider Signature Date Date/Time 12/24/2018 15:19 [...] Date Electronically signed by Zuleyka Byrd Conversion Corporate Director Talent Assessment Sandraner at 10/19/2022 11:23 AM CDT documented in this encounter Plan of Treatment Not on file documented as of this encounter Visit Diagnoses Not on filedocumented in this encounter
--- OUTSIDE RECORDS SUMMARY | 2025-06-20 12:36 | XMS_ITS | Encounter Summary ---
Author Organization [employer] ([place], [place], [place], [place], [place]) Address [address] [place] [address] Care Team Providers Care Knife Grinder Name Role Phone Unavailable Primary Care Provider Unavailabl e Encounter Details Date Type Department Care Team (Late st Contact Info) Description 10/31/2018 Transcribed Document [facility] [place] Medicine [address] [place] [address] ProviderLaury MD [address] [place] [address] Social History Tobacco Use Types Packs/Day [...] Laury ProviderMD - 10/31/2018 1:17 AM CDT [facility] ADDRESS [place], [place] [phone] Name:Crystal Archer Visit Date:10/30/2018 20:23:00 Emergency Department Care Providers: Physician: MEGHA MAN Physician: Our doctors and staff appreciate your choice of [facility] for your emergency medical care. Read these instructions carefully. Please call us if you have any questions about your medical problem. [facility] Emergency Department [phone] [facility] Emergency Department [phone] [facility] Emergency Department [phone] Patient Education Materials Gianni Crystal Karen has [...] 10/19/2011 Document Revised: 11/11/2016 Document Reviewed: 06/30/2015 [employer] Interactive Patient Education ? 2017 [employer]. FOLLOW UP CARE Most conditions that [...] them up o [facility] # [phone] o [facility] # [phone] o [facility] # [phone] ?? If you had cultures done and [...] quit. o National Network of Tobacco Cessation [id number]-BDQX-NOW o Bahraini Lung Association o Bahraini Heart Association [phone] o Sai/Manuel Mccray [phone] FINANCIAL INFORMATION ?? [facility] provides financial counseling to anyone who requests our services. ?? Emergency Physicians are independently contracted to provide your care. You will receive a bill for the care provided to you by the Physician and/or the Physician Pulmonologist. This will be a separate bill from [...] as recommended Patient Signature / or Patient Numerical Control Operator Provider Signature Date documented in this encounter Plan of Treatment Not on file documented as of this encounter Visit Diagnoses Not on filedocumented in this encounter
--- OUTSIDE RECORDS SUMMARY | 2025-06-20 12:36 | XMS_ITS | Encounter Summary ---
Author Organization [employer] ([place], [place], [place], [place], [place]) Address [address] [place] [address] Care Team Providers Care Powder Compounder Name Role Phone Unavailable Primary Care Provider Unavailabl e Encounter Details Date Type Department Care Team (Late st Contact Info) Description 08/03/2018 Transcribed Document [facility] [place] Family Medicine [address] [place] [address] ProviderLaury MD [address] [place] [address] Social History Tobacco Use Types Packs/Day [...] - Laury ProviderMD - 08/03/2018 6:57 PM DATA PROGRAMMER BBK Triage ED Entered On: 08/03/2018 14:06 [...] pain, dysuria since 0430. D/CD from [facility] 07/22 AMA for UTI. Health [...] : No GI 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 : No Logistic Specialist Hx : No Heart Attack : [...] Preferred Communication Mode : Verbal Languages : Zimbabwean Child/Parent Domestic Concerns : None Threats of Suicide : No ROSA FOSTER 08/03/2018 13:57 EST Height and Weight Height Source : Stated Height Entry Format : Rockfall Height, Inches : 65 Inch(Converted to: 5 ft 5 Inch, 165.10 cm) Clinical Height : 165.1 cm Weight Source : Stated Type of Weight Measurement Est : Rockfall Weight, est lb : 215 lb Estimated Clinical Dosing Weight : 97.73 kg [place] Body Weight : 57 kg Body Surface [...] 08/03/2018 13:57 EST Electronically signed by Rochelle [facility] Conversion Residential Aide Cerner at 10/19/2022 11:22 AM CDT documented in this encounter Plan of Treatment Not on file documented as of this encounter Visit Diagnoses Not on filedocumented in this encounter
--- OUTSIDE RECORDS SUMMARY | 2025-06-20 12:36 | XMS_ITS | Encounter Summary ---
Author Organization [employer] ([place], [place], [place], [place], [place]) Address [address] [place] [address] Care Team Providers Care Ironworker Machine Operator Name Role Phone Unavailable Primary Care Provider Unavailabl e Encounter Details Date Type Department Care Team (Late st Contact Info) Description 10/31/2018 Transcribed Document [facility] [place] [address] [place] [address] ProviderLaury MD [address] [place] [address] Social History Tobacco Use Types Packs/Day [...] Sex Female Language PCP Marital Status Phone [phone] Visit Id Visit Reason Specialty Enc Type Emergency Med Service Referred by Track Group [facility] Discharge Tracking Id [id number] Checkout 10/30/2018 21:17:02 Checkin 10/30/2018 20:23:00 Acuity 4 - Non-urgent [facility] Dispo Type Arrival 10/30/2018 20:23:00 Reg Status LOS 000 00:54 Address: [address] [place] [address] [place] [address] POWERFORMS PHYSICIAN NOTES VITALS INFORMATION Vital Sign [...]
--- OUTSIDE RECORDS SUMMARY | 2025-06-20 12:36 | XMS_ITS | Encounter Summary ---
Author Organization [employer] ([place], [place], [place], [place], [place]) Address [address] [place] [address] Care Team Providers Care Information Technology Account Manager Name Role Phone Unavailable Primary Care Provider Unavailabl e Encounter Details Date Type Department Care Team (Late st Contact Info) Description 09/26/2018 Transcribed Document [facility] [place] [address] [place] [address] ProviderLaury MD [address] [place] [address] Social History Tobacco Use Types Packs/Day [...] Laury ProviderMD - 09/26/2018 10:56 PM CDT [facility] Emergency Department Depart Summary PERSON INFORMATION Name Crystal Archer Age 28 Years 1990 Sex Female Language PCP Marital Status Phone [phone] Visit Id Visit Reason Specialty Enc Type Emergency Med Service Referred by Track Group [facility] Discharge Tracking Id [id number] Checkout 09/26/2018 18:56:15 Checkin 09/26/2018 16:44:00 Acuity 3 - Urgent [facility] Dispo Type Arrival 09/26/2018 16:44:00 Reg Status LOS 000 02:12 Address: [address] [place] [address] [place] [address] POWERFORMS PHYSICIAN NOTES VITALS INFORMATION Vital Sign Triage Temp 98.7 Temp Route Oral/Mouth Pulse Rate 102 Respiratory Rate 20 Blood Pressure 140/ 72 LOCATION INFORMATION Arrival Nurse Unit Room Bed 09/26/2018 16:44:00 [facility] ED Waitroom ([facility]) 09/26/2018 16:50:17 [facility] ED 3 09/26/2018 18:56:15 [facility] ED Checkout ([facility]) MEDICAL INFORMATION Allergy Info: No Known Allergies PATIENT EDUCATION INFORMATION Instructions: Hematuria, Adult Follow up: With: Address: When: Follow up with primary care provider Within 5 to 7 days DIAGNOSIS documented in this encounter Plan of Treatment Not on file documented as of this encounter Visit Diagnoses Not on filedocumented in this encounter
--- OUTSIDE RECORDS SUMMARY | 2025-06-20 12:36 | XMS_ITS | Encounter Summary ---
Author Organization [employer] ([place], [place], [place], [place], [place]) Address [address] [place] [address] Care Team Providers Care Pacu Rn Name Role Phone Unavailable Primary Care Provider Unavailabl e Encounter Details Date Type Department Care Team (Late st Contact Info) Description 09/26/2018 Transcribed Document [facility] [place] Family Medicine [address] [place] [address] ProviderLaury MD [address] [place] [address] Social History Tobacco Use Types Packs/Day [...] Laury ProviderMD - 09/26/2018 10:56 PM CDT [facility] ADDRESS [place], [place] [phone] Name:Crystal Archer Visit Date:09/26/2018 16:44:00 Emergency Department Care Providers: Physician: INDIO PEREA Physician: Our doctors and staff appreciate your choice of [facility] for your emergency medical care. Read these instructions carefully. Please call us if you have any questions about your medical problem. [facility] Emergency Department [phone] [facility] Emergency Department [phone] [facility] Emergency Department [phone] Patient Education Materials Crystal Archer Karen has [...] 07/04/2006 Document Revised: 12/09/2016 Document Reviewed: 03/04/2014 [employer] Interactive Patient Education ? 2017 [employer] Inc. FOLLOW UP CARE Most conditions [...] x-ray department to pick them up [facility] # [phone] [facility] # [phone] o [facility] # [phone] ?? If you had cultures done and [...] quit. o National Network of Tobacco Cessation [id number]-MQYI-NOW o Brazilian Lung Association o Brazilian Heart Association [phone] o Sai/Manuel Mccray [phone] FINANCIAL INFORMATION ?? [facility] provides financial counseling to anyone who requests our services. ?? Emergency Physicians are independently contracted to provide your care. You will receive a bill for the care provided to you by the Physician and/or the Physician Local Flatbed Driver. This will be a separate bill [...] as recommended Patient Signature / or Patient Tanker Service Attendant Provider Signature Date Electronically signed by Rochelle, [facility] Conversion [employer] Professional Cerner at 10/19/2022 11:22 AM CDT documented in this encounter Plan of Treatment Not on file documented as of this encounter Visit Diagnoses Not on filedocumented in this encounter
--- OUTSIDE RECORDS SUMMARY | 2025-06-20 12:36 | XMS_ITS | Encounter Summary ---
Author Organization [employer] ([place], [place], [place], [place], [place]) Address [address] [place] [address] Care Team Providers Care Cafeteria Operator Name Role Phone Unavailable Primary Care Provider Unavailabl e Encounter Details Date Type Department Care Team (Late st Contact Info) Description 09/07/2018 Transcribed Document [facility] [place] [address] [place] [address] ProviderLaury MD [address] [place] [address] Social History Tobacco Use Types Packs/Day [...] - Laury ProviderMD - 09/07/2018 9:31 PM JAI ALAI PLAYER [facility] ADDRESS [place], [place] [phone] Name:Crystal Archer Visit Date:09/07/2018 15:20:00 Emergency Department Care Providers: Physician: MEGHA MAN Physician: Our doctors and staff appreciate your choice of [facility] for your emergency medical care. Read these instructions carefully. Please call us if you have any questions about your medical problem. [facility] Emergency Department [phone] [facility] Emergency Department [phone] [facility] Emergency Department [phone] Patient Education Materials Gianni Crystal Jones has [...] 12/15/2006 Document Revised: 03/06/2017 Document Reviewed: 12/11/2014 Else[employer] Interactive Patient Education ? 2017 [employer]. FOLLOW UP CARE Most conditions that [...] them up o [facility] # [phone] o [facility] # [phone] o [facility] # [phone] ?? If you had cultures done and [...] quit. o National Network of Tobacco Cessation RTwzuvsin1-410-EBJC-NOW o Kyrgyz Lung Association o Kyrgyz Heart Association [phone] o Sai/Manuel Mccray [phone] FINANCIAL INFORMATION ?? [facility] provides financial counseling to anyone who requests our services. ?? Emergency Physicians are independently contracted to provide your care. You will receive a bill for the care provided to you by the Physician and/or the Physician Transportation Associate. This will be a separate bill [...] as recommended Patient Signature / or Patient Head Of Art Provider Signature Date Date/Time 09/07/2018 16:31 [facility] [place] Home Medications Name Crystal Archer Allergy Info: No Known Allergies Allergy Comment: HOME MEDICATIONS Medication Dose Route Frequency Reason For Taking Next Dose Admelog 100 units/mL injectable solution amLODIPine 2.5 mg oral tablet aspirin 81 mg oral tablet atorvastatin calcium acetate carvedilol 3.125 mg oral tablet fenofibrate gabapentin 300 mg oral capsule Lasix 40 mg oral tablet loratadine 10 mg oral capsule [place] 5 mg-325 mg oral tablet sodium bicarbonate [...] Date Electronically signed by Zuleyka Byrd Conversion Gyroscopic Engineering Technician Sandraner at 10/19/2022 11:22 AM CDT documented in this encounter Plan of Treatment Not on file documented as of this encounter Visit Diagnoses Not on filedocumented in this encounter
--- OUTSIDE RECORDS SUMMARY | 2025-06-20 12:36 | XMS_ITS | Encounter Summary ---
Author Organization [employer] ([place], [place], [place], [place], [place]) Address [address] [place] [address] Care Team Providers Care Head Inspector And Center Marker Name Role Phone Unavailable Primary Care Provider Unavailabl e Encounter Details Date Type Department Care Team (Late st Contact Info) Description 11/19/2018 Transcribed Document [facility] [place] [address] [place] [address] ProviderLaury MD [address] [place] [address] Social History Tobacco Use Types Packs/Day [...] Laury ProviderMD - 11/19/2018 1:52 AM CDT [facility] ADDRESS [place], [place] [phone] Name:Crystal Archer Visit Date:11/18/2018 20:06:00 Emergency Department Care Providers: Physician: Clara Elias Phys Asst Physician: Our doctors and staff appreciate your choice of [facility] for your emergency medical care. Read these instructions carefully. Please call us if you have any questions about your medical problem. [facility] Emergency Department [phone] [facility] Emergency Department [phone] [facility] Emergency Department [phone] Patient Education Materials Surendradarvin Crystal Jones has [...] start to feel better. ??? Only take fatw-csl-yluevvx or prescription medicines for pain, discomfort, or [...] 01/29/2014 Elsevier Interactive Patient Education ? 2017 [employer]. Obstetrics and Gynecology Urinary Tract Infection, Adult Introduction A urinary tract infection (UTI) is an infection of any part of the urinary tract. The urinary tract includes the: ??? Kidneys. ??? Ureters. ??? Bladder. ??? Urethra. These organs make, store, and get rid of pee (urine) in the body. Follow these instructions at home: ??? Take hjdj-wkx-nvcbnxp and prescription medicines only as told by [...] up o [facility] # [phone] o [facility] # [phone] o [facility] # [phone] ?? If you had cultures done and [...] quit. o National Network of Tobacco Cessation CYvflcqaj4-079-WUEF-NOW o Marshallese Lung Association o Marshallese Heart Association [phone] o Sai/Manuel Mccray [phone] FINANCIAL INFORMATION ?? [facility] provides financial counseling to anyone who requests our services. ?? Emergency Physicians are independently contracted to provide your care. You will receive a bill for the care provided to you by the Physician and/or the Physician Brigadier. This will be a separate bill from [...] Patient Education Materials: ENT Otitis Media, Adult, Gyai-gb-Hmat Obstetrics and Gynecology Urinary Tract Infection, Adult, Hhsn-gf-Cmxt Follow-Up Instructions: Follow Up With: Where: When: [...] as recommended Patient Signature / or Patient Core Dipper Provider Signature Date Date/Time 11/18/2018 21:52 [facility] [...] by (signature) Date Electronically signed by Rochelle, [facility] Conversion Maple Products Supervisor Keysha at 10/19/2022 11:23 AM CDT documented in this encounter Plan of Treatment Not on file documented as of this encounter Visit Diagnoses Not on filedocumented in this encounter
--- OUTSIDE RECORDS SUMMARY | 2025-06-20 12:36 | XMS_ITS | Encounter Summary ---
Author Organization [employer] ([place], [place], [place], [place], [place]) Address [address] [place] [address] Care Team Providers Care Smoke Room Operator Name Role Phone Unavailable Primary Care Provider Unavailabl e Encounter Details Date Type Department Care Team (Late st Contact Info) Description 09/07/[address] [facility] [place] Medicine [address] [place] [address] ProviderLaury MD [address] [place] [address] Social History Tobacco Use Types Packs/Day [...] - Laury ProviderMD - 09/07/2018 9:31 PM STATOR PLATE WASHER [facility] Emergency Department Depart Summary PERSON INFORMATION Name Crystal Archer Age 28 Years 1990 Sex Female Language PCP Marital Status Phone [phone] Visit Id Visit Reason Specialty Enc Type Emergency Med Service Referred by Track Group [facility] Discharge Tracking Id [id number] Checkout 09/07/2018 16:31:16 Checkin 09/07/2018 15:20:00 Acuity 4 - Non-urgent [facility] Dispo Type Arrival 09/07/2018 15:20:00 Reg Status LOS 000 01:11 Address: [address] [place] [address] [place] [address] POWERFORMS PHYSICIAN NOTES VITALS INFORMATION Vital Sign [...]
--- OUTSIDE RECORDS SUMMARY | 2025-06-20 12:36 | XMS_ITS | Encounter Summary ---
Author Organization [employer] ([place], [place], [place], [place], [place]) Address [address] [place] [address] Care Team Providers Care Ese Teacher Name Role Phone Unavailable Primary Care Provider Unavailabl e Encounter Details Date Type Department Care Team (Late st Contact Info) Description 09/26/2018 Transcribed Document [facility] [place] Medicine [address] [place] [address] ProviderLaury MD [address] [place] [address] Social History Tobacco Use Types Packs/Day [...] Laury ProviderMD - 09/26/2018 10:[address] [facility] ADDRESS [place], [place] [phone] Name:Crystal Archer Visit Date:09/26/2018 16:44:00 Emergency Department Care Providers: Physician: INDIO PEREA Physician: Our doctors and staff appreciate your choice of [facility] for your emergency medical care. Read these instructions carefully. Please call us if you have any questions about your medical problem. [facility] Emergency Department [phone] [facility] Emergency Department [phone] [facility] Emergency Department [phone] Patient Education Materials Crystal Archer Karen has [...] 07/04/2006 Document Revised: 12/09/2016 Document Reviewed: 03/04/2014 [employer] Interactive Patient Education ? 2017 [employer] Inc. FOLLOW UP CARE Most conditions that [...] the x-ray department to pick them up [facility] # [phone] [facility] # [phone] o [facility] # [phone] ?? If you had cultures done and [...] quit. o National Network of Tobacco Cessation FWrrqasjn6-025-BTSM-NOW o Japanese Lung Association o Japanese Heart Association [phone] o Sai/Manuel Mccray [phone] FINANCIAL INFORMATION ?? [facility] provides financial counseling to anyone who requests our services. ?? Emergency Physicians are independently contracted to provide your care. You will receive a bill for the care provided to you by the Physician and/or the Physician News Commentator. This will be a separate bill from [...] as recommended Patient Signature / or Patient Adhesive Bandage Making Operator Provider Signature Date Date/Time 09/26/2018 18:56 [...] oral tablet loratadine 10 mg oral capsule [place] 5 mg-325 mg oral tablet sodium bicarbonate [...]
--- OUTSIDE RECORDS SUMMARY | 2025-06-20 12:36 | XMS_ITS | Encounter Summary ---
Author Organization [facility] Address [address], [address] [place] [address] Care Team Providers Care Sales Operations Specialist Name Role Phone Jaquan Conley MD Primary Care Provider [phone] Reason for Referral * Imaging (Emergency) - Closed Specialty Diagnoses / Procedures Referred By Contac t Referred To Contact Radiology Diagnoses Urinary retention Procedures US RENAL COMPLETE Yue Abdalla APRN [address] [place] [address] Phone: tel: Referral ID Status Reason Start Date Expiration Date Visits Re quested Visits Authorized [id number] Closed 01/09/2021 01/09/2022 1 1 Encounter Details Date Type Department Care Team (Latest Contact Info) Description 01/09/2021 Transcribe Orders [facility] PRE ACCESS [address] [place] [address] Yue Abdalla APRN [address] [place] [address] Urinary retention (Primary Dx) Social [...] kidneys or urinary bladder. [facility] Rm TERRITORY SALES MANAGER [facility] US ORDERABLES Final Result documented in this encounter Visit Diagnoses Diagnosis Urinary retention- Primary Retention of urine, unspecified Urinary retention Retention of urine, unspecified documented in this encounter Care Teams Sales Operations Specialist Relationship Specialty Start Date End Date Jaquan Conley MD [address] [place] [address] PCP - General Internal Medicine 01/09/21 documented as of this encounter
--- OUTSIDE RECORDS SUMMARY | 2025-06-20 12:36 | XMS_ITS | Encounter Summary ---
Author Organization [employer] ([place], [place], [place], [place], [place]) Address [address] [place] [address] Care Team Providers Care Washer Carcass Name Role Phone Unavailable Primary Care Provider Unavailabl e Encounter Details Date Type Department Care Team (Late st Contact Info) Description 10/31/2018 Transcribed Document [facility] [place] [address] [place] [address] ProviderLaury MD [address] [place] [address] Social History Tobacco Use Types Packs/Day [...] Complaint Primary Care Provider : Rema Ferreira, Travel Med Surg Rn Accompanied By : Family/Spouse/SO Arrival Mode : [...] : No GI 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 : No Assembler Piano Hx : No Heart Attack : No [...] Preferred Communication Mode : Verbal Languages : Nigerian Child/Parent Domestic Concerns : None Threats of Suicide : No Jasen summer10/30/2018 20:29 EDT Height and Weight Height Source : Stated Height Entry Format : Robertson Height, Inches : 65 Inch(Converted to: 5 ft 5 Inch, 165.10 cm) Clinical Height : 165.1 cm Weight Source : Stated Type of Weight Measurement Est : Robertson Weight, est lb : 214 lb Estimated Clinical Dosing Weight : 97.27 kg Wallace Body Weight : 57 kg Body Surface [...] ; Status: Processing ; Ordered As Mnemonic: [place] 5 mg-325 mg oral tablet ; Simple [...]
--- OUTSIDE RECORDS SUMMARY | 2025-06-20 12:36 | XMS_ITS | Clinical Summary ---
Author Organization Luis Miguel [facility] Address [facility] [facility] [address], [address] [place] [address] Care Team Providers Care Wine Sales Representative Name Role Phone Jaquan Conley MD Primary Care Provider [phone] Social History Tobacco Use Types Packs/Day Years Used Date Smoking Tobacco: Never Assessed Comments Unknown Sex and Gender Information Value Date Recorded Sex Assigned at Not on file Legal Sex Female 11:22 AM EDT Gender Identity Not on file Sexual Orientation Not on file Plan of Treatment Not on file Insurance [facility] Care Teams Wine Sales Representative Relationship Specialty Start Date End Date Jaquan Conley MD [address] [place] [address] PCP - General Internal Medicine 01/09/21
--- OUTSIDE RECORDS SUMMARY | 2025-06-20 12:36 | XMS_ITS | Encounter Summary ---
Author Organization [employer] ([place], [place], [place], [place], [place]) Address [address] [place] [address] Care Team Providers Care Hospital Social Worker Name Role Phone Unavailable Primary Care Provider Unavailabl e Encounter Details Date Type Department Care Team (Late st Contact Info) Description 12/24/2018 Transcribed Document [facility] [place] Family Medicine [address] [place] [address] ProviderLaury MD [address] [place] [address] Social History Tobacco Use Types Packs/Day [...] - 12/24/2018 7:19 PM CDT [facility] Depart Summary PERSON INFORMATION Name Crystal Archer Age 28 Years 1990 Sex Female Language PCP Marital Status Phone [id number] Visit Id Visit Reason Specialty Enc Type Emergency Med Service Referred by Track Group [facility] Discharge Tracking Id [id number] Checkout 12/24/2018 15:19:27 Checkin 12/24/2018 15:01:00 Acuity 4 - Non-urgent [facility] Dispo Type Arrival 12/24/2018 15:01:00 Reg Status LOS 000 00:18 Address: [address] [place] [address] [place] [address] POWERFORMS PHYSICIAN NOTES VITALS INFORMATION Vital Sign Triage Temp 98.6 Temp Route Oral/Mouth Pulse Rate 101 Respiratory Rate 20 Blood Pressure 179/ 89 LOCATION INFORMATION Arrival Nurse Unit Room Bed 12/24/2018 15:01:00 [facility] ED Waitroom ([facility]) 12/24/2018 15:04:15 [facility] ED 1 12/24/2018 15:19:27 [facility] ED Checkout ([facility] [...]
--- OUTSIDE RECORDS SUMMARY | 2025-06-20 12:37 | XMS_ITS | Encounter Summary ---
Author Organization [employer] ([place], [place], [place], [place], [place]) Address [address] [place] [address] Care Team Providers Care Bricklayer Sewer Name Role Phone Unavailable Primary Care Provider Unavailabl e Encounter Details Date Type Department Care Team (Late st Contact Info) Description 08/03/2018 Transcribed Document [facility] [place] [address] [place] [address] ProviderLaury MD [address] [place] [address] Social History Tobacco Use Types Packs/Day [...] - Laury ProviderMD - 08/03/2018 7:32 PM ORACLE ERP DEVELOPER [facility] ADDRESS [place], [place] [phone] Name:Crystal Archer Visit Date:08/03/2018 13:52:00 Emergency Department Care Providers: Physician: MEGHA MAN Physician: Our doctors and staff appreciate your choice of [facility] for your emergency medical care. Read these instructions carefully. Please call us if you have any questions about your medical problem. [facility] Emergency Department [phone] [facility] Emergency Department [phone] [facility] Emergency Department [phone] Patient Education Materials Surendradarvin Crystal Jones has [...] them up o [facility] # [phone] o [facility] # [phone] o [facility] # [phone] ?? If you had cultures done and [...] quit. o National Network of Tobacco Cessation [id number]-ATOW-NOW o [place] Lung Association o [place] Heart Association [phone] o Sai/Manuel Mccray [phone] FINANCIAL INFORMATION ?? [facility] provides financial counseling to anyone who requests our services. ?? Emergency Physicians are independently contracted to provide your care. You will receive a bill for the care provided to you by the Physician and/or the Physician Rocket Engine Tester. This will be a separate bill from [...] as recommended Patient Signature / or Patient Third Shift Lieutenant Provider Signature Date Date/Time 08/03/2018 14:32 [facility] [...]
--- OUTSIDE RECORDS SUMMARY | 2025-06-20 12:37 | XMS_ITS | Clinical Summary ---
Author Organization [facility] Address [address] [place] [address] Care Team Providers Care Stock Checker Name Role Phone Jaquan Conley MD Primary Care Provider [phone] Social History Tobacco Use Types Packs/Day Years [...] 9:28 AM EDT 12/31/2024 9:54 AM EDT [facility] LAB - 12/31/2024 10:31 AM EDT Performed by [facility], [address] [place] [address] Nikki Jeffery APRN LAB BLOOD ORDERABLES Final Re sult [facility] [address] [place] [address], [facility] CH Remisol 2.0 SS Pathology Department [address] [place] [address] * (ABNORMAL) Comprehensive metabolic panel (12/31/2024 9:28 [...] - 3.5 Gram/dL 12/31/2024 10:31 AM EDT [facility] CH Remisol 2.0 SS EGFR 54(L) >=60 mL/min/1.7 3m2 12/31/2024 10:31 AM EDT [facility] CH Remisol 2.0 SS Comment:eGFR calculation per formed using the CKD-EPI 2020 equation (race variable excluded) Blood Venous Draw / Unknown 12/31/2024 9:28 AM EDT 12/31/2024 9:54 AM EDT Narrative [facility] LAB - 12/31/2024 10:31 AM EDT Performed by [facility], [address] [place] [address] Nikki Jeffery APRN LAB BLOOD ORDERABLES Final Re sult Performing Organization Address [facility] Co de Phone Number [facility] [address] [place] [address], [facility] Remisol 2.0 SS Pathology Department [address] [place] [address] * Hepatitis C antibody (05/19/2023 8:10 AM EDT) Hep C Virus Ab NONREACTIVE Nonreactive 05/19/2023 12:09 PM EDT [facility] Core CH Remisol Blood 05/19/2023 8:10 AM EDT 05/19/2023 11:19 AM EDT Yue Kraft MD LAB BLOOD ORDERABLES Edited Resu lt - Final Performing Organization Address [facility] Co de Phone Number [facility] [address] [place] [address], [facility] Core CH Remisol SS Pathology Department [address] [place] [phone] from Last 3 Months or Most Recently Relevant to Health Maintenance Insurance [place] Care Teams Stock Checker Relationship Specialty Start Date End Date Jauqan Conley MD [address] [place] [address] [place] [address] PCP - General Internal Medicine 09/18/20
--- OUTSIDE RECORDS SUMMARY | 2025-06-20 12:37 | XMS_ITS | Encounter Summary ---
Author Organization [employer] ([place], [place], [place], [place], [place]) Address [address] [place] [address] Care Team Providers Care Material Handling Crew Supervisor Name Role Phone Unavailable Primary Care Provider Unavailabl e Encounter Details Date Type Department Care Team (Late st Contact Info) Description 09/07/2018 Transcribed Document [facility] [place] [address] [place] [address] ProviderLaury MD [address] [place] [address] Social History Tobacco Use Types Packs/Day [...] - Laury ProviderMD - 09/07/2018 9:31 PM HEALTH INFORMATICS SPECIALIST [facility] ADDRESS [place], [place] [phone] Name:Crystal Archer Visit Date:09/07/2018 15:20:00 Emergency Department Care Providers: Physician: MEGHA MAN Physician: Our doctors and staff appreciate your choice of [facility] for your emergency medical care. Read these instructions carefully. Please call us if you have any questions about your medical problem. [facility] Emergency Department [phone] [facility] Emergency Department [phone] [facility] Emergency Department [phone] Patient Education Materials Gianni Crystal Jones has [...] 12/15/2006 Document Revised: 03/06/2017 Document Reviewed: 12/11/2014 [employer] Interactive Patient Education ? 2017 [place] [employer] FOLLOW UP CARE Most conditions that [...] x-ray department to pick them up o [facility] # [phone] o [facility] # [phone] o [facility] # [phone] ?? If you had cultures done and [...] quit. o National Network of Tobacco Cessation [id number]-XWJE-NOW o [place] Lung Association o [place] Heart Association [phone] o Sai/Manuel Mccray [phone] FINANCIAL INFORMATION ?? [facility] provides financial counseling to anyone who requests our services. ?? Emergency Physicians are independently contracted to provide your care. You will receive a bill for the care provided to you by the Physician and/or the Physician Reading Aide. This will be a separate bill from [...] as recommended Patient Signature / or Patient Paint Roller Covermaker Provider Signature Date documented in this encounter Plan of Treatment Not on file documented as of this encounter Visit Diagnoses Not on filedocumented in this encounter
--- OUTSIDE RECORDS SUMMARY | 2025-06-20 12:37 | XMS_ITS | Encounter Summary ---
Author Organization [facility] Address [address] [place] [address] Care Team Providers Care Scroll Shear Operator Name Role Phone Jaquan Conley MD Primary Care Provider + [phone] Reason for Visit * Reason Comments Med Refill Encounter Details Date Type Department Care Team (Late st Contact Info) Description 06/15/2025 Refill [facility] Endocrinology [address] [place] [address] Paz Echeverria MD [address] [address] Type 2 diabetes mellitus with [...] encounter Miscellaneous Notes * Telephone Encounter - Odette Harvey RN - 06/16/2025 7:01 PM EST Refill request does not meet protocol. Sending to clinic for review. Additional info: Appointment compliance - Patient has not followed up in clinic as requested. Please review for scheduling and if refills are appropriate. Last clinic visit 10/11/2024 with F/U advised in 3 months. Canceled 01/21/2025. documented in this encounter Plan of Treatment [...] documented as of this encounter Care Teams Scroll Shear Operator Relationship Specialty Start Date End Date Jaquan Conley MD [address] [place], [place] [id number] PCP - General 11/28/20 documented as of this encounter
--- OUTSIDE RECORDS SUMMARY | 2025-06-20 12:37 | XMS_ITS | Clinical Summary ---
Author Organization [employer] ([place], [place], [place], [place], [place]) Address [address] [place] [address] Care Team Providers Care Superintendent Ammunition Storage Name Role Phone Unavailable Primary Care Provider [...] Date Blaine rded Speak language other than Lao at home Not on file 07/30/2023 Want [...] patient's age to complete this topic Insurance [facility] Advance Directives For more information, please contact: [phone] * Full Code (Latest Code Status on File) Date Activated Date Inactivated Comments 09/23/2022 6:27 AM 09/23/2022 11:31 AM
--- OUTSIDE RECORDS SUMMARY | 2025-06-20 12:37 | XMS_ITS | Encounter Summary ---
Author Organization [employer] ([place], [place], [place], [place], [place]) Address [address] [place] [address] Care Team Providers Care Manufacturing Engineer Assembly Name Role Phone Unavailable Primary Care Provider Unavailabl e Encounter Details Date Type Department Care Team (Late st Contact Info) Description 08/03/2018 Transcribed Document [facility] [place] Family Medicine [address] [place] [address] ProviderLaury MD [address] [place] [address] Social History Tobacco Use Types Packs/Day [...] - Laury ProviderMD - 08/03/2018 7:32 PM COMPRESSOR STATION CHIEF ENGINEER [facility] ADDRESS [place], [place] [phone] Name:Crystal Archer Visit Date:08/03/2018 13:52:00 Emergency Department Care Providers: Physician: MEGHA MAN Physician: Our doctors and staff appreciate your choice of [facility] for your emergency medical care. Read these instructions carefully. Please call us if you have any questions about your medical problem. [facility] Emergency Department [phone] [facility] Emergency Department [phone] [facility] Emergency Department [phone] Patient Education Materials Surendradarvin Crystal Jones has [...] them up o [facility] # [phone] o [facility] # [phone] o [facility] # [phone] ?? If you had cultures done and [...] quit. o National Network of Tobacco Cessation [id number]-QWWR-NOW o [place] Lung Association o [place] Heart Association [phone] o Sai/Manuel Mccray [phone] FINANCIAL INFORMATION ?? [facility] provides financial counseling to anyone who requests our services. ?? Emergency Physicians are independently contracted to provide your care. You will receive a bill for the care provided to you by the Physician and/or the Physician Picture Painter. This will be a separate bill from [...] as recommended Patient Signature / or Patient Datawarehouse Developer Provider Signature Date documented in this encounter Plan of Treatment Not on file documented as of this encounter Visit Diagnoses Not on filedocumented in this encounter
--- OUTSIDE RECORDS SUMMARY | 2025-06-20 12:37 | XMS_ITS | Encounter Summary ---
Author Organization [employer] ([place], [place], [place], [place], [place]) Address [address] [place] [address] Care Team Providers Care Wood Preserving Plant Laborer Name Role Phone Unavailable Primary Care Provider Unavailabl e Encounter Details Date Type Department Care Team (Late st Contact Info) Description 09/07/2018 Transcribed Document [facility] [place] [address] [place] [address] ProviderLaury MD [address] [place] [address] Social History Tobacco Use Types Packs/Day [...] - Laury ProviderMD - 09/07/2018 8:23 PM GAS SINGER BBK Triage ED Entered On: 09/07/2018 15:30 [...] : No GI 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 : No Campus Executive Director Hx : No Heart Attack : No [...] Source : Stated Height Entry Format : [place] Height, Inches : 65 Inch(Converted to: 5 ft 5 Inch, 165.10 cm) Clinical Height : 165.1 cm Weight Source : Stated Type of Weight Measurement Est : [place] Weight, est lb : 215 lb Estimated Clinical Dosing Weight : 97.73 kg [place] Body Weight : 57 kg Body Surface Area Estimated : 2.12 m2 Body Mass Index Estimated : 35.85 kg/m2 Silvia Cole, - 09/07/2018 15:23 EST Medication List ED Medications Reviewed : Yes Source of Information : Patient Silvia Cole, - 09/07/2018 15:23 EST Medication List (As Of: 09/07/2018 15:30:02 EST) Home Meds Status: Processing ; Ordered As Mnemonic: Cupert[place] 5 mg-325 mg oral tablet ; Simple [...]
--- OUTSIDE RECORDS SUMMARY | 2025-06-20 12:37 | XMS_ITS | Encounter Summary ---
Author Organization [facility] Address [address] [place] [address] Care Team Providers Care Livestock Laborer Name Role Phone Jaquan Conley MD Primary Care Provider [phone] Reason for Visit * Reason Comments Med Refill Encounter Details Date Type Department Care Team (Late st Contact Info) Description 09/25/2024 Refill [facility] - Transplantation Surgery [address] [address] Cb Forrester MD [address] [facility] [place] [address] Social History Tobacco Use Types Packs/Day Years [...] on filedocumented in this encounter Care Teams Livestock Laborer Relationship Specialty Start Date End Date Jaquan Conley MD [address] [place] [address] [place] [address] PCP - General Internal Medicine 09/18/20 documented as of this encounter
--- OUTSIDE RECORDS SUMMARY | 2025-06-20 12:37 | XMS_ITS | Referral Summary ---
Author Organization [employer] ([place], [place], [place], [place], [place]) Address [address] [place] [address] Care Team Providers Care Central Scheduler Name Role Phone Unavailable Primary Care [...] Date Blaine rded Speak language other than Gibraltarian at home Not on file 07/30/2023 Want [...] on file Insurance [address] [place] [id number] [facility] Advance Directives For more information, please contact: [phone] * Full Code (Latest Code Status on File) Date Activated Date Inactivated Comments 09/23/2022 6:27 AM 09/23/2022 11:31 AM
[2025-06-20 12:38] LABS: Microscopic, Urine URINE MICROSCOPIC (MICROSCOPIC)
[2025-06-20 13:37] LABS: Glucose,Urine (UA) TRACE (Negative); Ketones,Urine TRACE (Negative); Leukocyte Esterase,Urine 2+ (Negative); PH,Urine 5.0 (5.0-8.5); Protein,Urine 2+ (Negative); Specific Gravity, Urine 1.025 (1.005-1.030); Urobilinogen,Urine 4.0 EU/dl (0.2)
[2025-06-20 13:40] LABS: Bilirubin,Urine 1+ (Negative); Color,Urine Orange (Yellow)
[2025-06-20 14:04] LABS: Squamous Epithelial Cell,Urine Occasional #/hpf (0-5); WBC,Urine 50-100 #/hpf (0-3)
[2025-06-20 14:05] LABS: Bacteria,Urine 1+ /lpf; Calcium Oxalate Crystals,Urine 2+ /lpf
== END 2025-06-20 23:59 | disposition home or self-care (01) ==
LOC: LAB 12:33
PROVIDERS: PCP Nurse Practitioner; Visit Provider Internal Medicine Nephrology
DX: Z01.89 Encounter for other specified special examinations (principal); E11.8 Type 2 diabetes mellitus with unspecified complications; I10 Essential (primary) hypertension; E78.5 Hyperlipidemia, unspecified; Z94.0 Kidney transplant status; Z79.899 Other long term (current) drug therapy
CPT/HCPCS: 81001; 87086; 87088; 87186

== ENCOUNTER 2025-06-28 13:31 | Outpatient (CLI) | payer MEDICAID, SELFPAY ==
[2025-06-28 13:37] LABS: Microscopic, Urine URINE MICROSCOPIC (MICROSCOPIC)
[2025-06-28 14:13] LABS: Bilirubin,Urine Negative (Negative); Color,Urine YELLOW (Yellow); Glucose,Urine (UA) Negative (Negative); Ketones,Urine TRACE (Negative); Leukocyte Esterase,Urine TRACE (Negative); PH,Urine 5.5 (5.0-8.5); Protein,Urine Negative (Negative); Specific Gravity, Urine 1.025 (1.005-1.030); Urobilinogen,Urine 0.2 EU/dl (0.2)
[2025-06-28 14:23] LABS: Bacteria,Urine 1+ /lpf; Squamous Epithelial Cell,Urine Occasional #/hpf (0-5)
== END 2025-06-28 23:59 | disposition home or self-care (01) ==
LOC: LAB 13:32
PROVIDERS: PCP Nurse Practitioner; Visit Provider Internal Medicine Nephrology
DX: Z94.0 Kidney transplant status (principal)
CPT/HCPCS: 81001; 87086

== ENCOUNTER 2025-07-09 13:54 | Outpatient (CLI) | payer MEDICAID, SELFPAY ==
--- OUTSIDE RECORDS SUMMARY | 2025-07-12 13:57 | XMS_ITS | Encounter Summary ---
Author Organization [employer] ([place], [place], [place], [place], [place]) Address [address] [place] [address] Care Team Providers Care Engineered Wood Designer Name Role Phone Unavailable Primary Care Provider Unavailabl e Encounter Details Date Type Department Care Team (Late st Contact Info) Description 01/19/2020 Transcribed Document [facility] [place] Family Medicine [address] [place] [address] ProviderLaury MD [address] [place] [address] Social History Tobacco Use Types Packs/Day Years [...] pharmacies and retail stores. ??? Eat bland, kyvd-nd-uusiwm foods in small amounts as you are [...] and water are not available, use hand supervisor metal placing. Make sure that everyone in your household washes their hands frequently. ??? Take yuur-kzy-lxwoyia and prescription medicines only as told by [...] and water are not available, use hand supervisor metal placing. Make sure that everyone in your household [...] 07/30/2016 Document Revised: 12/12/2018 Document Reviewed: 12/12/2018 [employer] Interactive Patient Education ? 2020 [employer] Endocrinology Hypoglycemia Hypoglycemia occurs when the [...] instructions at home: General instructions ??? Take irnk-uqc-oibhpzl and prescription medicines only as told by [...] 07/04/2006 Document Revised: 12/26/2018 Document Reviewed: 08/06/2016 [employer] Interactive Patient Education ? 2020 [employer] documented in this encounter Plan of Treatment Not on file documented as of this encounter Visit Diagnoses Not on filedocumented in this encounter
--- OUTSIDE RECORDS SUMMARY | 2025-07-12 13:57 | XMS_ITS | Encounter Summary ---
Author Organization [employer] ([place], [place], [place], [place], [place]) Address [address] [place] [address] Care Team Providers Care Atmospheric Scientist Name Role Phone Unavailable Primary Care Provider Unavailabl e Encounter Details Date Type Department Care Team (Late st Contact Info) Description 01/19/2020 Transcribed Document [facility] [place] [place] [address] ProviderLaury MD [address] [place] [address] Social History Tobacco Use Types Packs/Day [...] Obtained From : Patient Primary Language : [place]inean Preferred Communication Mode : Verbal Communication Barrier : None Laser/Electro Optics Technician Needed : No OCTAVIO BRAND RN - [...] Scale Risk Level : 0-24 Low Risk Grampian Fall Interventions : Adequate lighting, Bed in [...] Source : Stated Height Entry Format : [place] Height, Feet : 5 ft(Converted to: 152 cm, 60 Inch) Height, Inches : 5 Inch(Converted to: 0 ft 5 Inch, 12.70 cm) Clinical Height : 165.1 cm Weight Source : Standing scale Weight Entry Format : [place] Clinical Dosing Weight : 104.91 kg Weight, Pounds : 230.8 lb Body Surface Area (BSA) : 2.1 m2 Body Mass Index : 38.5 kg/m2 (HI) [place]man Body Weight : 57 kg OCTAVIO BRAND [...] OCTAVIO BRAND RN - 01/19/2020 8:36 EDT Funk Suicide Severity Rating Scale (C-SSRS) CSSRS Past [...]
--- OUTSIDE RECORDS SUMMARY | 2025-07-12 13:57 | XMS_ITS | Clinical Summary ---
Author Organization [facility] Address [address] [place] [address] Care Team Providers Care Eyelet Punch Operator Name Role Phone Unavailable Primary Care [...] therelease of HIV test results or diagnoses. [id number] Allergies Active Allergy Reactions Criticality [...] - Td or Tdap) 09/28/2033 09/29/2023 Insurance [facility] care Address: [facility] [id number] [place] [address]
--- OUTSIDE RECORDS SUMMARY | 2025-07-12 13:57 | XMS_ITS | Encounter Summary ---
Author Organization [employer] ([place], [place], [place], [place], [place]) Address [address] [place] [address] Care Team Providers Care Mind Reader Name Role Phone Unavailable Primary Care Provider Unavailabl e Encounter Details Date Type Department Care Team (Late st Contact Info) Description 01/04/2020 Transcribed Document [facility] [place] Family Medicine [address] [place] [address] ProviderLaury MD [address] [place] [address] Social History Tobacco Use Types Packs/Day [...]
--- OUTSIDE RECORDS SUMMARY | 2025-07-12 13:57 | XMS_ITS | Encounter Summary ---
Author Organization [employer] ([place], [place], [place], [place], [place]) Address [address] [place] [address] Care Team Providers Care Insulation Blower Name Role Phone Unavailable Primary Care Provider Unavailabl e Encounter Details Date Type Department Care Team (Late st Contact Info) Description 01/19/2020 Transcribed Document [facility] [place] Family [place] [address] [place] [address] ProviderLaury MD [address] [place] [address] Social History Tobacco Use Types Packs/Day [...]
--- OUTSIDE RECORDS SUMMARY | 2025-07-12 13:57 | XMS_ITS | Encounter Summary ---
Author Organization [employer] ([place], [place], [place], [place], [place]) Address [address] [place] [address] Care Team Providers Care Social Group Worker Name Role Phone Unavailable Primary Care Provider Unavailabl e Encounter Details Date Type Department Care Team (Late st Contact Info) Description 01/19/2020 Transcribed Document [facility] [place] [address] [place] [address] ProviderLaury MD [address] [place] [id number] Social History Tobacco Use Types Packs/Day Years [...] Physician Requested for Consult : LARRY MARTINES MD-[facility] Physician Covering for Consult : LARRY MARTINES MD-[facility]ANDEE Date and Time Call Returned : 01/19/2020 9:04 EDT ASPEN CROWDER - 01/19/2020 9:04 EDT Electronically signed by Rochelle [facility] Conversion Proposal Manager Writer Cerner at 11/02/2022 10:05 AM CDT documented in this encounter Plan of Treatment Not on file documented as of this encounter Visit Diagnoses Not on filedocumented in this encounter
--- OUTSIDE RECORDS SUMMARY | 2025-07-12 13:57 | XMS_ITS | Encounter Summary ---
Author Organization [facility] Address [address] [place] [address] Care Team Providers Care Life Management Teacher Name Role Phone Jaquan Conley MD Primary Care Provider + [phone] Encounter Details Date Type Department Care Team (Late st Contact Info) Description 11/10/2018 [facility] OT[facility] Encounter Historical OTTR [address] [place] [address] Yris Schwarz, RN CH-TRANSPLANT ADMINISTRATION None Social [...] . She stated she is going to [facility] because they told her she [...] EDT SW received message from [facility] senior master scheduler that the pt contacted her to cancel psych appt, as she has decided to pursue listing at [facility], instead of . Note to Coord. and Managing Principal for awareness. * Progress Notes - MárquezIndira - 11/09/2018 4:12 PM EDT Mailed 11/24/18 [facility] eval appt schedule w/ map to pt. * Progress Notes - Daisy Gaming LCSW - 11/08/2018 8:09 AM EDT Per [facility] Managing Principal, pt has an appt with [facility] on 11/24/18 at 1:30 pm. Note [...] between 9 and 12 due to child health associate issues. Forwarding communication to . * Progress [...] However, pt is also considering going to [facility] since she was told they [...] @ 0830. Updated APM, SCM, OTTR, and [place]. Will call pt and mail updated ppw. [...] from pt asking for call back at [phone] to talk about a living donor. Called and spoke w/ pt. States she has several potential living donors and they have questions about the process, testing, and requirements. Informed pt that her potential living donors can call [phone] to discuss this and receive more info, [...] packet to pt and cc'd referring MD. [facility] [phone]. [...] on filedocumented in this encounter Care Teams Life Management Teacher Relationship Specialty Start Date End Date Jaquan Conley MD [address] [place], [place] [phone] PCP - General 11/28/20 documented as of this encounter
--- OUTSIDE RECORDS SUMMARY | 2025-07-12 13:57 | XMS_ITS | Clinical Summary ---
Author Organization [facility] Address [address] [place] [address] Care Team Providers Care Artist Mannequin Coloring Name Role Phone Jaquan Conley MD Primary Care Provider + [phone] Allergies Active Allergy Reactions Criticality Noted Date [...] Type Department Care Team Description 06/15/2025 Refill [facility] Endocrinology [address] [place] [address] Paz Echeverria MD Type 2 diabetes mellitus with other specified complication, with long-term current use of insulin 05/21/2025 Refill [facility] Endocrinology [address] [place] [address] Paz Echeverria MD Type 2 diabetes mellitus [...] Years Used Date Smoking Tobacco: Former Cigarettes 0.5 Q uit: 09/2022 Smokeless Tobacco: Never Tobacco [...] [facility]-HIV Screening 1989 [facility]-/Child/Adol SDOH Screenings 1989 [id number] Vaccine (#1) 02/15/1990 Diabetes: Dental Exam 1999 [facility]-Varicella Vaccines (1 [...] 49 Years) Completed 04/26/2024, 12/21/2018 HPV Vaccines (No Doses Required) Completed [facility]-HIB Vaccines Aged Out No longer e [...] with long-term current use of insulin ([facility]) CYTO DATA CONVERSION Routine 10/29/2014 12:00 AM EDT from Last 3 Months or Most Recently Relevant to Health Maintenance Results * (ABNORMAL) POCT glycosylated hemoglobin (Hb A1C) (05/23/2024 11:03 AM EST) POCT Hemoglobin A1C 5.8 <5.7% Non-Diabe tic % [facility] Kit Lot Number [id number] [facility] Kit Expiration Date 03/17/2026 [facility] Blood Venous blood specimen / Unknown 05/23/2024 11:03 AM EST Erica MENDEZ POINT OF CARE TEST EN TER/EDIT ORDERABLES Final Result [facility] [address] [place] [address] * Cytology (10/29/2014 12:00 AM EDT) 10/29/2014 10/31/2014 12: 33 PM EDT Narrative [facility] - 11/06/2014 11:15 AM EDT [facility] MR #: [id number] [facility] FREDDIE ARCHER [place] [id number] 1990 (Age: 24) FW Collect Date: 10/29/2014 00:00 Receipt Date: 10/31/2014 12:33 Page 1 DEPARTMENT OF PATHOLOGY AND LABORATORY MEDICINE CYTOPATHOLOGY REPORT Email: [email or web address] ATTENDING MD/Practitioner: John Celestin APRN Service: PAT Location: OUTS Reported: 11/06/2014 11:15 Collected: 10/29/2014 00:00 INTERPRETATION A. THIN PREP (CERVICAL/VAGINAL): NEGATIVE FOR INTRAEPITHELIAL LESION OR MALIGNANCY. SATISFACTORY FOR EVALUATION; ENDOCERVICAL/ TRANSFORMATION ZONE COMPONENT PRESENT. Slide scanned and imaged by Where Was it Filmed ThinPrep Imaging System with manual review of [...] results is suggested (please call Microbiology at [phone] for results). CLINICAL INFORMATION: Menstrual History: Cyclic Date of Last Menstrual Period: 10/03/14 Other Clinical Conditions: If ASCUS and > 24 years of age, HPV/DNA testing requested. SPECIMEN DESCRIPTION: A: THIN PREP (CERVICAL/VAGINAL) THIN PREP PROCESS CELLULAR ENHANCEMENT ICD: F: A; RT IMAGE [id number] SNOMED CODES: A; [id number] In cases where a pathologist has signed out the report, the service has been rendered in part by a resident. The signing pathologist has performed and is responsible for the reported pathologic evaluation. us Historical Provider LAB PATHOLOGY ORDERABLES Fin al Result [facility] from Last 3 Months or Most Recently Relevant to Health Maintenance Insurance [employer] Care Teams Artist Mannequin Coloring Relationship Specialty Start Date End Date Jaquan Conley MD [address] [place] [address] PCP - General 11/28/20
--- OUTSIDE RECORDS SUMMARY | 2025-07-12 13:57 | XMS_ITS | Encounter Summary ---
Author Organization [employer] ([place], [place], [place], [place], [place]) Address [address] [place] [address] Care Team Providers Care Utility Sales And Service Manager Name Role Phone Unavailable Primary Care Provider Unavailabl e Encounter Details Date Type Department Care Team (Late st Contact Info) Description 01/18/2020 Transcribed Document [facility] [place] [address] [place] [address] ProviderLaury MD [address] [place] [address] Social History Tobacco Use Types Packs/Day [...] DCP GENERIC CODE Tracking Group : [facility] Tracking Acuity : 2 - [...] Problems(Active) At risk for sleep apnea (IMO :95228150 ) Name of Problem: At risk for sleep apnea ; Recorder: SYSTEM, SYSTEM; Confirmation: Confirmed ; Classification: Medical ; Code: [id number] ; Last Updated: 08/24/2019 10:25 EST ; Life Cycle Date: 08/24/2019 ; Life Cycle Status: Active ; Vocabulary: IMO DM (diabetes mellitus) (SNOMED CT :193718372 ) Name of Problem: DM (diabetes mellitus) ; Recorder: ANGE Green RN; Confirmation: Confirmed ; Classification: Medical ; Code: 920930309 ; Contributor System: PowerChart ; Last Updated: 08/24/2019 10:17 EST ; Life Cycle Date: 08/24/2019 ; Life Cycle Status: Active ; Vocabulary: SNOMED CT HTN (hypertension) (SNOMED CT :3895600019 ) Name of Problem: HTN (hypertension) ; Recorder: ANGE Green RN; Confirmation: Confirmed ; Classification: Medical ; Code: 6554733764 ; Contributor System: PowerChart ; Last Updated: 08/24/2019 10:16 EST ; Life Cycle Date: 08/24/2019 ; Life Cycle Status: Active ; Vocabulary: SNOMED CT Hyperkalemia (SNOMED CT :83223675 ) Name of Problem: Hyperkalemia ; Recorder: Noelle Umanzor Rn; Confirmation: Confirmed ; Classification: Medical ; Code: 26493955 ; Contributor System: PowerChart ; Last Updated: 10/03/2019 10:52 EDT ; Life Cycle Date: 10/03/2019 ; Life Cycle Status: Active ; Vocabulary: SNOMED CT Hyperlipemia (SNOMED CT :20270302 ) Name of Problem: Hyperlipemia ; Recorder: ANGE Green RN; Confirmation: Confirmed ; Classification: Medical ; Code: 48269359 ; Contributor System: PowerChart ; Last Updated: 08/24/2019 10:17 EST ; Life Cycle Date: 08/24/2019 ; Life Cycle Status: Active ; Vocabulary: SNOMED CT Kidney disease (SNOMED CT :612419162 ) Name of Problem: Kidney disease ; Recorder: ANGE Green RN; Confirmation: Confirmed ; Classification: Medical ; Code: 953709143 ; Contributor System: PowerChart ; Last Updated: 08/24/2019 10:17 EST ; Life Cycle Date: 08/24/2019 ; Life Cycle Status: Active ; Vocabulary: SNOMED CT Neuropathy (SNOMED CT :3963866132 ) Name of Problem: Neuropathy ; Recorder: ANGE Green RN; Confirmation: Confirmed ; Classification: Medical ; Code: 4163991711 ; Contributor System: PowerChart ; Last Updated: 08/24/2019 10:18 EST ; Life Cycle Date: 08/24/2019 ; Life Cycle Status: Active ; Vocabulary: SNOMED CT Retinopathy (SNOMED CT :78845870 ) Name of Problem: Retinopathy ; Recorder: Noelle Umanzor Rn; Confirmation: Confirmed ; Classification: Medical ; Code: 47336373 ; Contributor System: PowerChart ; Last Updated: 10/03/2019 10:52 EDT ; Life Cycle Date: 10/03/2019 ; Life Cycle Status: Active ; Vocabulary: SNOMED CT Diagnoses(Active) Dehydration Date: 01/18/2020 ; Diagnosis Type: Reason For Visit ; Confirmation: Complaint of ; Clinical Dx: Dehydration ; Classification: Medical ; Clinical Service: Emergency medicine ; Code: PNED ; Probability: 0 ; Diagnosis Code: [id number] Vomiting Date: 01/18/2020 ; Diagnosis Type: Reason For Visit ; Confirmation: Complaint of ; Clinical Dx: Vomiting ; Classification: Medical ; Clinical Service: Emergency medicine ; Code: PNED ; Probability: 0 ; Diagnosis Code: [id number] ED Height and Weight Height Source : Stated Height Entry Format : Meagher Height, Feet : 5 ft(Converted to: 152 cm, 60 Inch) Height, Inches : 5 Inch(Converted to: 0 ft 5 Inch, 12.70 cm) Clinical Height : 165.1 cm Weight Source, ED : Standing scale Weight Entry Format : Meagher Weight, Pounds : 230.8 lb Clinical Dosing Weight : 104.91 kg Body Surface Area (BSA) : 2.1 m2 Body Mass Index : 38.5 kg/m2 (HI) [place] Body Weight (IBW) : 56.59 kg MARKIE PANG RN - 01/18/2020 20:31 EDT documented in this encounter Plan of Treatment Not on file documented as of this encounter Visit Diagnoses Not on filedocumented in this encounter
--- OUTSIDE RECORDS SUMMARY | 2025-07-12 13:57 | XMS_ITS | Encounter Summary ---
Author Organization [employer] ([place], [place], [place], [place], [place]) Address [address] [place] [address] Care Team Providers Care Event Operations Manager Name Role Phone Unavailable Primary Care Provider Unavailabl e Encounter Details Date Type Department Care Team (Late st Contact Info) Description 01/07/2020 Transcribed Document [facility] [place] Family Medicine [address] [place] [address] ProviderLaury MD [address] [place] [address] Social History Tobacco Use Types Packs/Day [...] for Hospitalization is a 29-year-old patient with half-way history [...] Int Units = 1 Cap, Oral, Weekly [place] 7.5/325 oral every 6 hours as needed for pain. Zofran 8mg oral every 12 hours as needed for nausea. Prilosec 20mg oral daily. Starts tomorrow. [2] Code Status No Code Status Order on Record Condition on Discharge Stable Consulting Physicians LARRY JAIMES MD-ANS Current Diet Order No qualifying data available. Patient Discharge Summary Orders Discharge Follow Up Instructions: followup next weekCall for [id number] Follow Up Instructions: call office on tuesday [...]
--- OUTSIDE RECORDS SUMMARY | 2025-07-12 13:57 | XMS_ITS | Encounter Summary ---
Author Organization [employer] ([place], [place], [place], [place], [place]) Address [address] [place] [address] Care Team Providers Care Assistant Manager Name Role Phone Unavailable Primary Care Provider Unavailabl e Encounter Details Date Type Department Care Team (Late st Contact Info) Description 01/05/2020 Transcribed Document [facility] [place] Family Medicine [address] [place] [address] ProviderLaury MD [address] [place] [address] Social History Tobacco Use Types Packs/Day [...]
--- OUTSIDE RECORDS SUMMARY | 2025-07-12 13:57 | XMS_ITS | Encounter Summary ---
Author Organization [employer] ([place], [place], [place], [place], [place]) Address [address] [place] [address] Care Team Providers Care City Administrator Name Role Phone Unavailable Primary Care Provider Unavailabl e Encounter Details Date Type Department Care Team (Late st Contact Info) Description 01/05/2020 Transcribed Document [facility] [place] Family Medicine [address] [place] [address] ProviderLaury MD [address] [place] [address] Social History Tobacco Use Types Packs/Day [...] On: 01/05/2020 8:27 EDT by CRISTOBAL HANSEN, RN-Money Room Teller Initial Assessment I Previously Documented Living Environment [...] have PCP Listed? : Yes CRISTOBAL HANSEN RN-Money Room Teller - 01/05/2020 8:27 EDT Initial Assessment II [...] : Discharge transportation, Outpatient services CRISTOBAL HANSEN RN-Money Room Teller - 01/05/2020 8:27 EDT Narrative Note Narrative Note : Patient underwent laparoscopic gastrectomy sleeve. Lives at home with family, iADLs. Plan [place] at [place], no services needed..................sds CRISTOBAL HANSEN RN-Money Room Teller - 01/05/2020 8:27 EDT documented in this encounter Plan of Treatment Not on file documented as of this encounter Visit Diagnoses Not on filedocumented in this encounter
--- OUTSIDE RECORDS SUMMARY | 2025-07-12 13:57 | XMS_ITS | Encounter Summary ---
Author Organization [facility] Address [address] [place] [address] Care Team Providers Care Needle Punch Operator Name Role Phone Jaquan Conley MD Primary Care Provider + [phone] Reason for Visit * Reason Comments Med Refill Encounter Details Date Type Department Care Team (Late st Contact Info) Description 05/21/2025 Refill [facility] Endocrinology [address] [place] [address] Paz Echeverria MD [address] [address] Type 2 diabetes mellitus with other specified complication, with long-term current use of insulin Social History Tobacco Use Types Packs/Day Years Used Date Smoking Tobacco: Former Cigarettes 0.5 Q uit: 09/2022 Smokeless Tobacco: Never Alcohol [...] documented as of this encounter Care Teams Needle Punch Operator Relationship Specialty Start Date End Date Jaquan Conley MD [address] [place], [place] [id number] PCP - General 11/28/20 documented as of this encounter
--- OUTSIDE RECORDS SUMMARY | 2025-07-12 13:57 | XMS_ITS | Encounter Summary ---
Author Organization [employer] ([place], [place], [place], [place], [place]) Address [address] [place] [address] Care Team Providers Care Software Support Technician Name Role Phone Unavailable Primary Care Provider Unavailabl e Encounter Details Date Type Department Care Team (Late st Contact Info) Description 01/05/2020 Transcribed Document [facility] [place] Family Medicine [address] [place] [address] ProviderLaury MD [address] [place] [address] Social History Tobacco Use Types Packs/Day [...] your book, please call the Center at [phone]. documented in this encounter Plan of Treatment Not on file documented as of this encounter Visit Diagnoses Not on filedocumented in this encounter
--- OUTSIDE RECORDS SUMMARY | 2025-07-12 13:57 | XMS_ITS | Encounter Summary ---
Author Organization [employer] ([place], [place], [place], [place], [place]) Address [address] [place] [address] Care Team Providers Care Trailer Sections Assembler Name Role Phone Unavailable Primary Care Provider Unavailabl e Encounter Details Date Type Department Care Team (Late st Contact Info) Description 01/19/2020 Transcribed Document [facility] [place] [address] [place] [address] ProviderLaury MD [address] [place] [address] Social History Tobacco Use Types Packs/Day [...] Performed On: 01/19/2020 16:16 EDT by OCTAVIO BARND RN Discharge Documentation Discharge Date/Time : 01/19/2020 [...] 01/19/2020 16:16 EDT Electronically signed by Rochelle [facility] Conversion Cord Maker Cerner at 11/02/2022 9:56 AM CDT documented in this encounter Plan of Treatment Not on file documented as of this encounter Visit Diagnoses Not on filedocumented in this encounter
--- OUTSIDE RECORDS SUMMARY | 2025-07-12 13:57 | XMS_ITS | Encounter Summary ---
Author Organization [employer] ([place], [place], [place], [place], [place]) Address [address] [place] [address] Care Team Providers Care Grain Operator Name Role Phone Unavailable Primary Care Provider Unavailabl e Encounter Details Date Type Department Care Team (Late st Contact Info) Description 01/05/2020 Transcribed Document [facility] [place] [address] [place] [address] ProviderLaury MD [address] [place] [address] Social History Tobacco Use Types Packs/Day [...] 01/05/2020 7:38 EDT Electronically signed by Rochelle [facility] Conversion Digital Data Analyst Cerner at 11/02/2022 10:09 AM CDT documented in this encounter Plan of Treatment Not on file documented as of this encounter Visit Diagnoses Not on filedocumented in this encounter
--- OUTSIDE RECORDS SUMMARY | 2025-07-12 13:57 | XMS_ITS | Encounter Summary ---
Author Organization [employer] ([place], [place], [place], [place], [place]) Address [address] [place] [address] Care Team Providers Care Drive In Waiter/Waitress Name Role Phone Unavailable Primary Care Provider Unavailabl e Encounter Details Date Type Department Care Team (Late st Contact Info) Description 01/19/2020 Transcribed Document [facility] [place] [address] [place] [address] ProviderLaury MD [address] [place] [address] Social History Tobacco Use Types Packs/Day [...] Laury ProviderMD - 01/19/2020 3:30 PM CDT [address] [address] FREDDIE ARCHERGARCIA :1990 Visit Time:01/19/2020 [...] pharmacies and retail stores. ??? Eat bland, ynfk-he-sihwpj foods in small amounts as you are [...] and water are not available, use hand production mechanic. Make sure that everyone in your household washes their hands frequently. ??? Take pcqz-jsi-tcxxbcf and prescription medicines only as told by [...] and water are not available, use hand production mechanic. Make sure that everyone in your [...] 07/30/2016 Document Revised: 12/12/2018 Document Reviewed: 12/12/2018 Contents First Interactive Patient Education ?? 2020 anchor.travel. Hypoglycemia Hypoglycemia occurs when the level of [...] instructions at home: General instructions ??? Take qowf-jvx-raxtohh and prescription medicines only as told by [...] 07/04/2006 Document Revised: 12/26/2018 Document Reviewed: 08/06/2016 Contents First Interactive Patient Education ?? 2020 anchor.travel. Emergency Awareness and Preventative Care STROKE is [...] Assistance with quitting is available by contacting 9-900-RAXJ-NOW. This is a free resource providing counseling, [...] range between ( 1.0 and 7.0 ) Elbert #: 0.73 K/uL -- Normal range between ( 0.24 and 0.82 ) Eos #: 0.24 K/uL -- Normal range between ( 0.04 and 0.54 ) Elbert %: 7.3 % -- Normal range between [...] ) Urine Bilirubin Dipstick: Negative Urine Specific Ferriday: 1.012 -- Normal range between ( 1.005 [...] was given the opportunity to ask questions. Patient/Clinical Director Name: Patient/Clinical Director Signature: Relationship to Patient: Clinician/Hospital Clinical Director Signature: Date: documented in this encounter Plan of Treatment Not on file documented as of this encounter Visit Diagnoses Not on filedocumented in this encounter
--- OUTSIDE RECORDS SUMMARY | 2025-07-12 13:57 | XMS_ITS | Encounter Summary ---
Author Organization [employer] ([place], [place], [place], [place], [place]) Address [address] [place] [address] Care Team Providers Care Ice Seller Name Role Phone Unavailable Primary Care Provider Unavailabl e Encounter Details Date Type Department Care Team (Late st Contact Info) Description 01/18/2020 Transcribed Document [facility] [place] Medicine [address] [place] [address] ProviderLaury MD [address] [place] [address] Social History Tobacco Use Types Packs/Day [...] Laury ProviderMD - 01/18/2020 8:28 PM CDT [place] Suicide Severity Rating Scale (C-SSRS) Entered On: 01/18/2020 21:29 EDT Performed On: 01/18/2020 21:29 EDT by JASON FUENTES, RN [place] Suicide Severity Rating Scale (C-SSRS) CSSRS Past [...]
--- OUTSIDE RECORDS SUMMARY | 2025-07-12 13:57 | XMS_ITS | Encounter Summary ---
Author Organization [employer] ([place], [place], [place], [place], [place]) Address [address] [place] [address] Care Team Providers Care Construction Code Administrator Name Role Phone Unavailable Primary Care Provider Unavailabl e Encounter Details Date Type Department Care Team (Late st Contact Info) Description 01/19/2020 Transcribed Document [facility] [place] [address] [place] [address] ProviderLaury MD [address] [place] [address] Social History Tobacco Use Types Packs/Day [...] 01/19/2020 15:30 EDT Electronically signed by Rochelle [facility] Conversion Early Childhood Teacher Assistant Cerner at 11/02/2022 10:02 AM CDT documented in this encounter Plan of Treatment Not on file documented as of this encounter Visit Diagnoses Not on filedocumented in this encounter
--- OUTSIDE RECORDS SUMMARY | 2025-07-12 13:57 | XMS_ITS | Encounter Summary ---
Author Organization [employer] ([place], [place], [place], [place], [place]) Address [address] [place] [address] Care Team Providers Care Environment Friendly Landscape Designer Name Role Phone Unavailable Primary Care Provider Unavailabl e Encounter Details Date Type Department Care Team (Late st Contact Info) Description 01/19/2020 Transcribed Document [facility] [place] [address] [place] [address] ProviderLaury MD [address] [place] [address] Social History Tobacco Use Types Packs/Day Years [...] documented in chart. Surgical history: section x2 (93431111). Dilation and curettage (35994081). Tubal ligation (429283667). wisdom teeth. kidney biopsy. EGD. Stomach biopsy. Gastric sleeve (3507588410).. Family history: Not significant, No family history [...] EDT Height Source Stated Height Entry Format [place] Height/Length, GRENADIAN (ft) 5 ft Height/Length GRENADIAN 5 Inch CLINICALHEIGHT 165.1 cm [place] Body Weight 56.59 kg Weight Source, ED Standing scale Weight Entry Format [place] Weight Slovenian lb 230.8 lb CLINICALWEIGHT 104.91 kg Body [...] 39.0 % Lymph # 3.92 K/uL HI [place] % 7.3 % [place] # 0.73 K/uL Eos % 2.4 % Eos # 0.24 K/uL Baso % 0.4 % Baso # 0.04 K/uL Slide Review No IG# 0 x10(3)/uL IG% 0 % . Notes: Preliminary ReportNAME:FREDDIE ARCHER / SEX:1990 / FemaleMRN / ACC#:[id number] / [id number] ORDERING PHYSICIAN:Ordering Provider, UpdateEXAM REQUESTED:[id number]--HF ABDOMEN & PELVIS W/O CONTRAST [facility] NAME:MD Ashe[facility]IN[facility]:status post gastric sleeve surgery on [...] No rash, no cyanosis, capillary refill brisk ACCOUNTING RECRUITER: Awake alert oriented ??4, nonfocal exam Psych: [...] admit pt. - 01/19/2020 01:24:00 , LAZARA KALPAN MD, phone call, recommends will admit pt. [...]
--- OUTSIDE RECORDS SUMMARY | 2025-07-12 13:57 | XMS_ITS | Clinical Summary ---
Author Organization [facility] Address [address] [place] [address] Care Team Providers Care Landing Worker Name Role Phone Yang, Maria A Doyle APRN Primary Care Provider [phone] Allergies Active Allergy Reactions Criticality Noted Date [...] Daily. Active vitamin D (ERGOCALCIFEROL) 1.25 MG (87193 UT) capsule capsule Take 1 capsule by [...] menstrual bleeding. Followed by Dr. Lynch at [facility]. In review of most recent [...] emptying. Contacted her transplant medical team at [facility] this morning with her symptoms [...] Plan (10/04/2024 3:33 PM EDT): Valuated in [facility] for the same approximately 1 month [...] available. I have also requested records from [facility] ED visit which supposedly includes some diagnostic [...] 2023 she received a call from the [facility] that they had a match [...] daily. Continues to be followed closely by [facility] transplant as well as Dr. Stevens at [facility]. Assessment & Plan (08/22/2024 11:22 AM EST): On December 02, 2023 she received a call from the [facility] that they had a match [...] daily. Continues to be followed closely by [facility] transplant as well as Dr. Stevens at [facility] locally. Assessment & Plan (06/07/2024 12:35 PM EST): Patient last evaluated in our office a little over 1 year ago in April 2023. At that time she was suffering from end-stage renal disease due to diabetic nephropathy, performing home peritoneal dialysis nightly. On December 02, 2023 she received a call from the [facility] that they had a match [...] daily. Continues to be followed closely by [facility] transplant as well as Dr. Stevens at [facility] locally. Annual physical exam 03/15/2023 Cervical cancer screening 03/15/2023 Type 2 diabetes mellitus wit h hyperglycemia, with long-term current use of insulin 02/15/2023 Assessment & Plan (02/25/2025 7:41 AM EDT): Patient followed by endocrinology at the [facility]. Patient currently utilizes insulin pump and GCS [...] followed by Dr. Stevens at [facility]. Working towards renal transplant with [facility].. Assessment & Plan (03/15/2023 5:10 PM EDT): Etiology of end-stage renal disease appears to be hypertensive nephrosclerosis as well as diabetic nephropathy. She was a noncompliant type I diabetic for many years, diagnosed at the age of 12. She is currently performing home peritoneal dialysis nocturnally 6 days/week. Working towards renal transplant with [facility]. [facility]. Assessment & Plan (02/15/2023 3:01 PM EDT): Etiology of end-stage renal disease appears to be hypertensive nephrosclerosis as well as diabetic Nephropathy. She was a noncompliant type I diabetic for many years, diagnosed at the age of 12. She is currently performing home peritoneal dialysis nocturnally 6 days/week. Working towards renal transplant with [facility]. To pursue transplant services at [facility] as well but finances are making [...] therapy for quite some time by her chief estimator. Patient has not been on GLP-1 for [...] been started on GLP-1 therapy by her chief estimator and is back down to 157 pounds [...] of 107. She reports she saw her play therapist who wanted to increase her blood pressure medications but she refused stating she knew she stopped the medications her blood pressure would return to normal. She is now off both BuSpar and venlafaxine with blood pressure 110/74 in office today. Patient feels her mood is stable currently without medications due to some decrease stressors in the home. Her [id number] with whom she help caregive from Lane's disease, decreasing some of her personal obligations. [...] sneezing. [facility] a [facility] with [...] Encounters Date Type Department Care Team Description 07/08/2025 Telephone [facility] [address] [place], [place] [address] Maria A Soria, ANJU from Last 3 [...] Hemoglobin A1C 5.6 4.5 - 5.7 % [facility] Lot Number [id number] [facility] Expiration Date [facility] Blood 02/22/2025 10:2 6 AM EDT Maria A Soria APRN POINT OF CARE TEST ORDERABL ES Final Result [facility]
[address] [place] [address], * Lipid Panel (08/22/2024 9:48 AM EST) [facility] Total Cholesterol 117 100 - 199 mg/dL [facility] Triglycerides 140 0 - 149 mg/dL [facility] HDL Cholesterol 40 >39 mg/dL [facility] VLDL Cholesterol Christian 24 5 - 40 mg/dL [facility] LDL Chol Calc (NIH) 53 0 - 99 mg/dL [facility] Blood Structure of left upper limb / Unknown 08/22/2024 9:48 AM EST 08/22/2024 Comment:Blood Release to [facility]) - 08/23/2024 9:07 AM EST Performed at: 01 - [address] [id number] [employer]ault Supervisor: Jacob Whaley PhD, Phone: [phone] Maria A Soria APRN LAB BLOOD ORDERABLES Final Result [facility] [address] [place] [address], [place] [phone] [facility] [address] [place] [address], [place] [phone] * Hepatitis C Antibody (07/23/2019 10:03 AM EST) [facility] Hepatitis C Ab Non-Reacti ve Non-Reacti ve 07/23/2019 6:31 PM EST [facility] Blood Venipuncture / Unknown 07/23/2019 10:03 AM EST 07/23/2019 10:38 AM EST Mukul Stevens MD LAB BLOOD ORDERABLES F inal Result [facility]
[address] [place] [address], from Last 3 Months or Most Recently [...] pulse or is breathing): Full Care Teams Landing Worker Relationship Specialty Start Date End Date Maria A Soria APRN [address] [place] [address] PCP - General Family Medicine 02/15/23
--- OUTSIDE RECORDS SUMMARY | 2025-07-12 13:57 | XMS_ITS | Encounter Summary ---
Author Organization [facility] Address [address] [place] [address] Care Team Providers Care Cylinder Grinder Name Role Phone Jaquan Conley MD Primary Care Provider + [phone] Encounter Details Date Type Department Care Team (Late st Contact Info) Description 10/18/2018 [facility] Historical OTTR [address] [place] [address] Yris Schwarz, RN [facility]-TRANSPLANT ADMINISTRATION None Social [...] in nephrology clinic note that she left [facility] after admission for increasing creatinine and e. coli UTI, consider starting with social work. She also initially stated didn't want to pursue kidney transplant if she couldn't get a pancreas at same time. * Progress Notes - Hilaria Hsu - 08/16/2018 9:25 AM EST Start eval with ; pt left [facility] per [facility] records. Pt has been 5 times; has 2 children, one of which is in [place] with her latest . documented in this encounter Plan of Treatment Not on file documented as of this encounter Visit Diagnoses Not on filedocumented in this encounter Care Teams Cylinder Grinder Relationship Specialty Start Date End Date Jaquan Conley MD [address] [place] [address] PCP - General 11/28/20 documented as of this encounter
--- OUTSIDE RECORDS SUMMARY | 2025-07-12 13:57 | XMS_ITS | Encounter Summary ---
Author Organization [employer] ([place], [place], [place], [place], [place]) Address [address] [place] [address] Care Team Providers Care Director River Restoration Name Role Phone Unavailable Primary Care Provider Unavailabl e Encounter Details Date Type Department Care Team (Late st Contact Info) Description 01/19/2020 Transcribed Document [facility] [place] [facility] [address] [place] [address] ProviderLaury MD [address] [place] [address] Social History Tobacco Use Types Packs/Day [...] On: 01/19/2020 8:59 EDT by CRISTOBAL HANSEN RN-Kiln Furniture Saw Tender Readmission Questionnaire Patient Status at Discharge, Previous Admission : Inpatient Did Patient Leave AMA Pre Admission : No Readmission : Unplanned Readmission Reason: : Patient/caregiver decided on their own to come to ED ED Visit Between Hospitalization : No DC Destination, Previous Admission : Discharge To Care Management: Home/Residential/Half-Way or Self Care - (01/19/20 08:56:00) If [...] Was Readm Preventable : No CRISTOBAL HANSEN, RN-Kiln Furniture Saw Tender - 01/19/2020 8:59 EDT Electronically signed by Rochelle [facility] Conversion White [employer] Buffer Cerner at 11/02/2022 9:56 AM CDT documented in this encounter Plan of Treatment Not on file documented as of this encounter Visit Diagnoses Not on filedocumented in this encounter
--- OUTSIDE RECORDS SUMMARY | 2025-07-12 13:57 | XMS_ITS | Encounter Summary ---
Author Organization [employer] ([place], [place], [place], [place], [place]) Address [address] [place] [address] Care Team Providers Care Cooker Operator Name Role Phone Unavailable Primary Care Provider Unavailabl e Encounter Details Date Type Department Care Team (Late st Contact Info) Description 01/04/[address] [facility] Family Medicine [address] [place] [address] ProviderLaury MD [address] [place] [address] Social History Tobacco Use Types Packs/Day [...] 1 Health Plan: [facility] Policy Number: [id number] Authorization Number: [id number] Insurance Primary Name : [facility] Policy Number: [id number] Authorization Status-Primary : Admit approved Reference Number-Primary : [id number] Authorization Number-Primary : [id number] Number of Days Authorized-Primary : 0 Day(s) [...]
--- OUTSIDE RECORDS SUMMARY | 2025-07-12 13:57 | XMS_ITS | Encounter Summary ---
Author Organization [employer] ([place], [place], [place]) Address [address] [place] [address] Care Team Providers Care Medical Instructor Name Role Phone Unavailable Primary Care Provider Unavailabl e Encounter Details Date Type Department Care Team (Late st Contact Info) Description 01/18/2020 Transcribed Document [facility] Family Medicine [address] [place] [address] ProviderLaury MD [address] [place] [address] Social History Tobacco Use Types Packs/Day [...] Communication Barrier : None Primary Language : Cape Verdean Any Spiritual/Cultural Needs or Requests : No [...] 01/18/2020 21:30 EDT Electronically signed by Rochelle [facility] Conversion Hedis Manager Cerner at 11/02/2022 10:12 AM CDT documented in this encounter Plan of Treatment Not on file documented as of this encounter Visit Diagnoses Not on filedocumented in this encounter
--- OUTSIDE RECORDS SUMMARY | 2025-07-12 13:58 | XMS_ITS | Encounter Summary ---
Author Organization [facility] Address [address] 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
--- OUTSIDE RECORDS SUMMARY | 2025-07-12 13:58 | XMS_ITS | Encounter Summary ---
Author Organization [employer] ([place], [place], [place], [place], [place]) Address [address] [place] [address] Care Team Providers Care Hay Sorter Name Role Phone Unavailable Primary Care Provider Unavailabl e Encounter Details Date Type Department Care Team (Late st Contact Info) Description 09/26/2018 Transcribed Document [facility] Family Medicine [address] [place] [address] ProviderLaury MD [address] [place] [address] Social History Tobacco Use Types Packs/Day [...] 10:56 PM CDT [facility] ADDRESS [place], [place] [phone] Name:Crystal Archer Visit Date:09/26/2018 16:44:00 Emergency Department Care Providers: Physician: INDIO PEREA Physician: Our doctors and staff appreciate your choice of [facility] for your emergency medical care. Read these instructions carefully. Please call us if you have any questions about your medical problem. [facility] Emergency Department [phone] [facility] Emergency Department [phone] [facility] Emergency Department [phone] Patient Education Materials Crystal Archer Kraen has been given the following patient education [...] 07/04/2006 Document Revised: 12/09/2016 Document Reviewed: 03/04/2014 [employer] Interactive Patient Education ? 2017 [employer] FOLLOW UP CARE Most conditions that [...] department to pick them up [facility] # [phone] [facility] # [phone] o [facility] # [phone] ?? If you had cultures done and [...] quit. o National Network of Tobacco Cessation IMkmzpfmy1-128-DOGM-NOW o [facility] o [facility] [phone] o Sai/Manuel Mccray [phone] FINANCIAL INFORMATION ?? [facility] provides financial counseling to anyone who requests our services. ?? Emergency Physicians are independently contracted to provide your care. You will receive a bill for the care provided to you by the Physician and/or the Physician Pie Bakery Laborer. This will be a separate bill [...] as recommended Patient Signature / or Patient Shipping Assistant Provider Signature Date Electronically signed by Rochelle, [facility] Conversion It Training Specialist Cerner at 10/19/2022 11:22 AM CDT documented in this encounter Plan of Treatment Not on file documented as of this encounter Visit Diagnoses Not on filedocumented in this encounter
--- OUTSIDE RECORDS SUMMARY | 2025-07-12 13:58 | XMS_ITS | Encounter Summary ---
Author Organization [employer] ([place], [place], [place], [place]) Address [address] [place] [address] Care Team Providers Care Health Care Law Specialist Name Role Phone Unavailable Primary Care Provider Unavailabl e Encounter Details Date Type Department Care Team (Late st Contact Info) Description 10/31/2018 Transcribed Document [facility] [place] [place] Family Medicine [address] [place] [address] ProviderLaury MD [address] [place] [address] Social History Tobacco Use Types Packs/Day [...] Complaint Primary Care Provider : Rema Ferreira, Cutter Brake Lining Accompanied By : Family/Spouse/SO Arrival Mode : [...] : No GI 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 : No Diesel Roller Operator Hx : No Heart Attack : [...] Preferred Communication Mode : Verbal Languages : Argentine Child/Parent Domestic Concerns : None Threats of Suicide : No Jasen summer10/30/2018 20:29 EDT Height and Weight Height Source : Stated Height Entry Format : Clinch Height, Inches : 65 Inch(Converted to: 5 ft 5 Inch, 165.10 cm) Clinical Height : 165.1 cm Weight Source : Stated Type of Weight Measurement Est : Clinch Weight, est lb : 214 lb Estimated Clinical Dosing Weight : 97.27 kg [place] Body Weight : 57 kg Body Surface [...] ; Status: Processing ; Ordered As Mnemonic: [place] 5 mg-325 mg oral tablet ; Simple [...]
--- OUTSIDE RECORDS SUMMARY | 2025-07-12 13:58 | XMS_ITS | Encounter Summary ---
Author Organization [employer] ([place], [place], [place], [place], [place]) Address [address] [place] [address] Care Team Providers Care Director Talent Management Name Role Phone Unavailable Primary Care Provider Unavailabl e Encounter Details Date Type Department Care Team (Late st Contact Info) Description 10/31/2018 Transcribed Document [facility] Family Medicine [address] [place] [address] ProviderLaury MD [address] [place] [address] Social History Tobacco Use Types Packs/Day [...] AM CDT [facility] ADDRESS [place], [place] [phone] Name:Crystal Archer Visit Date:10/30/2018 20:23:00 Emergency Department Care Providers: Physician: MEGHA MAN Physician: Our doctors and staff appreciate your choice of [facility] for your emergency medical care. Read these instructions carefully. Please call us if you have any questions about your medical problem. [facility] Emergency Department [phone] [facility] Emergency Department [phone] [facility] Emergency Department [phone] Patient Education Materials Gianni Crystal Karen has [...] 10/19/2011 Document Revised: 11/11/2016 Document Reviewed: 06/30/2015 [employer] Interactive Patient Education ? 2017 [employer] FOLLOW UP CARE Most conditions that [...] x-ray department to pick them up o [facility] # [phone] o [facility] # [phone] o [facility] # [phone] ?? If you had cultures done and [...] quit. o National Network of Tobacco Cessation YZuocrvin1-527-TDEI-NOW o [employer] o [employer] [phone] o Sai/Manuel Mccray [phone] FINANCIAL INFORMATION ?? [facility] provides financial counseling to anyone who requests our services. ?? Emergency Physicians are independently contracted to provide your care. You will receive a bill for the care provided to you by the Physician and/or the Physician Customer Strategy Manager. This will be a separate bill [...] as recommended Patient Signature / or Patient Control Clerk Repairs Provider Signature Date documented in this encounter Plan of Treatment Not on file documented as of this encounter Visit Diagnoses Not on filedocumented in this encounter
--- OUTSIDE RECORDS SUMMARY | 2025-07-12 13:58 | XMS_ITS | Encounter Summary ---
Author Organization [employer] ([place], [place], [place], [place], [place]) Address [address] [place] [address] Care Team Providers Care Flat Lock Operator Name Role Phone Unavailable Primary Care Provider Unavailabl e Encounter Details Date Type Department Care Team (Late st Contact Info) Description 12/24/2018 Transcribed Document [facility] [address] [place] [address] ProviderLaury MD [address] [place] [address] Social History Tobacco Use Types Packs/Day [...] Laury ProviderMD - 12/24/2018 7:19 PM CDT [facility] Emergency Department Depart Summary PERSON INFORMATION Name Crystal Archer Age 28 Years 1990 Sex Female Language PCP Marital Status Phone [id number] Visit Id Visit Reason Specialty Enc Type Emergency Med Service Referred by [facility] Discharge Tracking Id [id number] Checkout 12/24/2018 15:19:27 Checkin 12/24/2018 15:01:00 Acuity 4 - Non-urgent [facility] Dispo Type Arrival 12/24/2018 15:01:00 Reg Status LOS 000 00:18 Address: [address] [place] [address] [place] [address] [employer] PHYSICIAN NOTES VITALS INFORMATION Vital Sign Triage Temp 98.6 Temp Route Oral/Mouth Pulse Rate 101 Respiratory Rate 20 Blood Pressure 179/ 89 LOCATION INFORMATION Arrival Nurse Unit Room Bed 12/24/2018 15:01:[address] [facility] ED Waitroom ([facility]) 12/24/2018 15:04:[address] [facility] ED 1 12/24/2018 15:19:[address] [facility] ED Checkout ([facility]) MEDICAL INFORMATION Allergy Info: No Known [...]
--- OUTSIDE RECORDS SUMMARY | 2025-07-12 13:58 | XMS_ITS | Encounter Summary ---
Author Organization [employer] ([place], [place], [place], [place], [place]) Address [address] [place] [address] Care Team Providers Care Coin Purse Framer Name Role Phone Unavailable Primary Care Provider Unavailabl e Encounter Details Date Type Department Care Team (Late st Contact Info) Description 09/28/2019 Transcribed Document [facility] [place] [address] [place] [address] ProviderLaury MD [address] [place] [address] Social History Tobacco Use Types Packs/Day [...] Policy Numbers : Insurance 1 [facility] Policy Number: [id number] Authorization Number: Insurance Primary Name : [facility] Policy Number: [id number] Authorization Status-Primary : Admit approved Reference Number-Primary : [id number] Authorization Number-Primary : [id number] Number of Days Authorized-Primary : 0 Day(s) [...]
--- OUTSIDE RECORDS SUMMARY | 2025-07-12 13:58 | XMS_ITS | Encounter Summary ---
Author Organization [employer] ([place], [place], [place], [place], [place]) Address [address] [place] [address] Care Team Providers Care Actuarial Assistant Name Role Phone Unavailable Primary Care Provider Unavailabl e Encounter Details Date Type Department Care Team (Late st Contact Info) Description 01/04/2020 Transcribed Document [facility] [place] Family Medicine [address] [place] [address] ProviderLaury MD [address] [place] [address] Social History Tobacco Use Types Packs/Day [...] 01/04/2020 19:04 EDT Electronically signed by Rochelle [facility] Conversion Manual Training Teacher Cerner at 11/02/2022 10:03 AM CDT documented in this encounter Plan of Treatment Not on file documented as of this encounter Visit Diagnoses Not on filedocumented in this encounter
--- OUTSIDE RECORDS SUMMARY | 2025-07-12 13:58 | XMS_ITS | Clinical Summary ---
Author Organization [facility] Address [facility], [address] [place] [address] Care Team Providers Care Senior Clerk Name Role Phone Jaquan Conley MD Primary Care Provider [phone] Social History Tobacco Use Types Packs/Day Years Used Date Smoking Tobacco: Never Assessed Comments Unknown Sex and Gender Information Value Date Recorded Sex Assigned at Not on file Legal Sex Female 11:22 AM EDT Gender Identity Not on file Sexual Orientation Not on file Plan of Treatment Not on file Insurance [facility] Care Teams Senior Clerk Relationship Specialty Start Date End Date Jaquan Conley MD [address] [place] [address] PCP - General Internal Medicine 01/09/21
--- OUTSIDE RECORDS SUMMARY | 2025-07-12 13:58 | XMS_ITS | Referral Summary ---
Author Organization [employer] ([place], [place], [place], [place], [place]) Address [address] [place] [address] Care Team Providers Care Contract Agent Name Role Phone Unavailable Primary Care [...] Date Blaine rded Speak language other than [place] Timorese at home Not on file 07/30/2023 Want [...] on file Insurance [address] [place] [id number] [facility] Advance Directives For more information, please contact: [phone] * Full Code (Latest Code Status on File) Date Activated Date Inactivated Comments 09/23/2022 6:27 AM 09/23/2022 11:31 AM
--- OUTSIDE RECORDS SUMMARY | 2025-07-12 13:58 | XMS_ITS | Encounter Summary ---
Author Organization [facility] Address [address] [place] [address] Care Team Providers Care Hand Box Coverer Name Role Phone Jaquan Conley MD Primary Care Provider + [phone] Reason for Visit * Reason Comments Med Refill Encounter Details Date Type Department Care Team (Late st Contact Info) Description 06/15/2025 Refill [facility] Endocrinology [address] [place] [address] Paz Echeverria MD [address] [address] Type 2 diabetes mellitus with [...] as of this encounter Care Teams Hand Box Coverer Relationship Specialty Start Date End Date Jaquan Conley MD [address] [place], [place] [id number] PCP - General 11/28/20 documented as of this encounter
--- OUTSIDE RECORDS SUMMARY | 2025-07-12 13:58 | XMS_ITS | Encounter Summary ---
Author Organization [employer] ([place], [place], [place], [place], [place]) Address [address] [place] [address] Care Team Providers Care Steel Crane Operator Name Role Phone Unavailable Primary Care Provider Unavailabl e Encounter Details Date Type Department Care Team (Late st Contact Info) Description 01/07/2019 Transcribed Document [facility] [place] Family Medicine [address] [place] [address] ProviderLaury MD [address] [place] [address] Social History Tobacco Use Types Packs/Day [...] - Urgent [facility] Tracking Group : BBK Adair Sridhar, Pearl L - 01/07/2019 19:08 EDT [...] : No GI 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 : No Marine Equipment Sales Engineer Hx : No Heart Attack : [...]
--- OUTSIDE RECORDS SUMMARY | 2025-07-12 13:58 | XMS_ITS | Encounter Summary ---
Author Organization [employer] ([place], [place], [place], [place], [place]) Address [address] [place] [address] Care Team Providers Care Manager Integrated Name Role Phone Unavailable Primary Care Provider Unavailabl e Encounter Details Date Type Department Care Team (Late st Contact Info) Description 08/03/2018 Transcribed Document [facility] [place] [address] [place] [address] ProviderLaury MD [address] [place] [address] Social History Tobacco Use Types Packs/Day [...] - Laury ProviderMD - 08/03/2018 7:32 PM INVERFORM MACHINE OPERATOR [facility] Emergency Department Depart Summary PERSON INFORMATION Name Crystal Archer Age 27 Years 1990 Sex Female Language PCP Marital Status Phone [id number] Visit Id Visit Reason Specialty Enc Type Emergency Med Service Referred by Track Group [facility] Discharge Tracking Id [id number] Checkout 08/03/2018 14:32:57 Checkin 08/03/2018 13:52:00 Acuity 3 - Urgent [facility] Dispo Type Arrival 08/03/2018 13:52:00 Reg Status LOS 000 00:40 Address: [address] [place] [address] [place] [address] POWERFORMS PHYSICIAN NOTES VITALS INFORMATION Vital Sign Triage Temp 98.1 Temp Route Oral/Mouth Pulse Rate 90 Respiratory Rate 18 Blood Pressure 152/ 87 LOCATION INFORMATION Arrival Nurse Unit Room Bed 08/03/2018 13:52:00 [facility] ED Waitroom ([facility]) 08/03/2018 13:55:29 [facility] ED 3 08/03/2018 14:32:57 [facility] ED Checkout ([facility]) MEDICAL INFORMATION Allergy Info: No Known Allergies PATIENT EDUCATION INFORMATION Instructions: Follow up: DIAGNOSIS documented in this encounter Plan of Treatment Not on file documented as of this encounter Visit Diagnoses Not on filedocumented in this encounter
--- OUTSIDE RECORDS SUMMARY | 2025-07-12 13:58 | XMS_ITS | Encounter Summary ---
Author Organization [employer] ([place], [place], [place], [place], [place]) Address [address] [place] [address] Care Team Providers Care Retail Coverage Merchandiser Name Role Phone Unavailable Primary Care Provider Unavailabl e Encounter Details Date Type Department Care Team (Late st Contact Info) Description 11/19/2018 Transcribed Document [facility] [place] [address] [place] [address] ProviderLaury MD [address] [place] [address] Social History Tobacco Use Types Packs/Day [...] 1:52 AM CDT [facility] ADDRESS [place], [place] [phone] Name:Crystal Archer Visit Date:11/18/2018 20:06:00 Emergency Department Care Providers: Physician: Clara Elias Phys Asst Physician: Our doctors and staff appreciate your choice of [facility] for your emergency medical care. Read these instructions carefully. Please call us if you have any questions about your medical problem. [facility] Emergency Department [phone] [facility] Emergency Department [phone] [facility] Emergency Department [phone] Patient Education Materials Surendradarvin Crystal Jones has [...] start to feel better. ??? Only take ocge-rtt-mjogkpk or prescription medicines for pain, discomfort, or [...] 01/29/2014 Elsevier Interactive Patient Education ? 2017 [employer] Obstetrics and Gynecology Urinary Tract Infection, Adult Introduction A urinary tract infection (UTI) is an infection of any part of the urinary tract. The urinary tract includes the: ??? Kidneys. ??? Ureters. ??? Bladder. ??? Urethra. These organs make, store, and get rid of pee (urine) in the body. Follow these instructions at home: ??? Take ywyx-rsx-qsnmyan and prescription medicines only as told by [...] them up o [facility] # [phone] o [facility] # [phone] o [facility] # [phone] ?? If you had cultures done and [...] quit. o National Network of Tobacco Cessation [id number]-OLUR-NOW o [place] Lung Association o [place] Heart Association [phone] o Sai/Manuel Mccray [phone] FINANCIAL INFORMATION ?? [facility] provides financial counseling to anyone who requests our services. ?? Emergency Physicians are independently contracted to provide your care. You will receive a bill for the care provided to you by the Physician and/or the Physician Leasing Sales Consultant. This will be a separate bill from [...] Patient Education Materials: ENT Otitis Media, Adult, Rnsg-kd-Vjxv Obstetrics and Gynecology Urinary Tract Infection, Adult, Rdsw-yx-Cuen Follow-Up Instructions: Follow Up With: Where: When: [...] as recommended Patient Signature / or Patient Furniture Repair Technician Provider Signature Date documented in this encounter Plan of Treatment Not on file documented as of this encounter Visit Diagnoses Not on filedocumented in this encounter
--- OUTSIDE RECORDS SUMMARY | 2025-07-12 13:58 | XMS_ITS | Encounter Summary ---
Author Organization [employer] ([place], [place], [place], [place], [place]) Address [address] [place] [address] Care Team Providers Care Messenger Copy Name Role Phone Unavailable Primary Care Provider Unavailabl e Encounter Details Date Type Department Care Team (Late st Contact Info) Description 12/24/[address] [facility] [place] [address] [place] [address] ProviderLaury MD [address] [place] [address] Social History Tobacco Use Types Packs/Day [...] - Non-urgent BBK Tracking Group : BBK Red Dog Mine TomlinMaddi - 12/24/2018 15:05 EDT ED Visit Reason : Rash Primary Care Provider : Rema Ferreira, Day Treatment Clinician/Art Therapist Accompanied By : Family/Spouse/SO Arrival Mode : [...] : No GI 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 : No Prison Officer Hx : No Heart Attack : [...] Source : Stated Height Entry Format : [place] Height, Inches : 65 Inch(Converted to: 5 ft 5 Inch, 165.10 cm) Clinical Height : 165.1 cm Weight Source : Bed scale Weight Entry Format : [place] Weight, Pounds : 221 lb Clinical Dosing Weight : 100.45 kg Body Surface Area-(BSA) : 2.15 m2 Body Mass Index : 36.9 kg/m2 (HI) [facility] Body Weight : 57 kg Maddi Tomlin [...]
--- OUTSIDE RECORDS SUMMARY | 2025-07-12 13:58 | XMS_ITS | Encounter Summary ---
Author Organization [employer] ([place], [place], [place], [place], [place]) Address [address] [place] [address] Care Team Providers Care Undercollar Baster Name Role Phone Unavailable Primary Care Provider Unavailabl e Encounter Details Date Type Department Care Team (Late st Contact Info) Description 09/07/2018 Transcribed Document [facility] [place] Family Medicine [address] [place] [address] ProviderLaury MD [address] [place] [address] Social History Tobacco Use Types Packs/Day [...] - Laury ProviderMD - 09/07/2018 9:31 PM CITY LETTER CARRIER [facility] ADDRESS [place], [place] [phone] Name:Crystal Archer Visit Date:09/07/2018 15:20:00 Emergency Department Care Providers: Physician: MEGHA MAN Physician: Our doctors and staff appreciate your choice of [facility] for your emergency medical care. Read these instructions carefully. Please call us if you have any questions about your medical problem. [facility] Emergency Department [phone] [facility] Emergency Department [phone] [facility] Emergency Department [phone] Patient Education Materials Gianni Crystal Jones has [...] 12/15/2006 Document Revised: 03/06/2017 Document Reviewed: 12/11/2014 [employer] Panda Interactive Patient Education ? 2017 [employer] FOLLOW UP CARE Most conditions that [...] them up o [facility] # [phone] o [facility] # [phone] o [facility] # [phone] ?? If you had cultures done and [...] quit. o National Network of Tobacco Cessation POglncqrp9-675-CGXR-NOW o [place] Lung Association o E[employer] Heart Association [phone] o Sai/Manuel Mccray [phone] FINANCIAL INFORMATION ?? [facility] provides financial counseling to anyone who requests our services. ?? Emergency Physicians are independently contracted to provide your care. You will receive a bill for the care provided to you by the Physician and/or the Physician Sales Advisor. This will be a separate bill from [...] as recommended Patient Signature / or Patient Mathematics Improvement Teacher Provider Signature Date Date/Time 09/07/2018 16:31 [facility] Home Medications Name Crystal Archer Allergy Info: No Known Allergies Allergy Comment: HOME MEDICATIONS Medication Dose Route Frequency Reason For Taking Next Dose Admelog 100 units/mL injectable solution amLODIPine 2.5 mg oral tablet aspirin 81 mg oral tablet atorvastatin calcium acetate carvedilol 3.125 mg oral tablet fenofibrate gabapentin 300 mg oral capsule Lasix 40 mg oral tablet loratadine 10 mg oral capsule [place]illa 5 mg-325 mg oral tablet sodium bicarbonate [...]
--- OUTSIDE RECORDS SUMMARY | 2025-07-12 13:58 | XMS_ITS | Encounter Summary ---
Author Organization [employer] ([place], [place], [place], [place], [place]) Address [address] [place] [address] Care Team Providers Care Dragline Engineer Name Role Phone Unavailable Primary Care Provider Unavailabl e Encounter Details Date Type Department Care Team (Late st Contact Info) Description 09/07/2018 Transcribed Document [facility] Family Medicine [address] [place] [address] ProviderLaury MD [address] [place] [address] Social History Tobacco Use Types Packs/Day [...] - Laury ProviderMD - 09/07/2018 9:31 PM AIR EXPORT OPERATIONS AGENT [facility] ADDRESS [place], [place] [phone] Name:Crystal Archer Visit Date:09/07/2018 15:20:00 Emergency Department Care Providers: Physician: MEGHA MAN Physician: Our doctors and staff appreciate your choice of [facility] for your emergency medical care. Read these instructions carefully. Please call us if you have any questions about your medical problem. [facility] Emergency Department [phone] [facility] Emergency Department [phone] [facility] Emergency Department [phone] Patient Education Materials Gianni Crystal Jones has [...] 12/15/2006 Document Revised: 03/06/2017 Document Reviewed: 12/11/2014 ElseAddonTV Interactive Patient Education ? 2017 [employer]. FOLLOW UP CARE Most conditions that [...] x-ray department to pick them up o [facility] # [phone] o [facility] # [phone] o [facility] # [phone] ?? If you had cultures done and [...] quit. o National Network of Tobacco Cessation AVydvxakz5-309-WIAS-NOW o [place] Lung Association o [place] Heart Association [phone] o Sai/Manuel Mccray [phone] FINANCIAL INFORMATION ?? [facility] provides financial counseling to anyone who requests our services. ?? Emergency Physicians are independently contracted to provide your care. You will receive a bill for the care provided to you by the Physician and/or the Physician Supervisor Alum Plant. This will be a separate bill from [...] as recommended Patient Signature / or Patient Com Writer Provider Signature Date documented in this encounter Plan of Treatment Not on file documented as of this encounter Visit Diagnoses Not on filedocumented in this encounter
--- OUTSIDE RECORDS SUMMARY | 2025-07-12 13:58 | XMS_ITS | Encounter Summary ---
Author Organization [employer] ([place], [place], [place], [place], [place]) Address [address] [place] [address] Care Team Providers Care Farmworker Grain Name Role Phone Unavailable Primary Care Provider Unavailabl e Encounter Details Date Type Department Care Team (Late st Contact Info) Description 10/31/2018 Transcribed Document [facility] Family Medicine [address] [place] [address] ProviderLaury MD [address] [place] [address] Social History Tobacco Use Types Packs/Day [...] Laury ProviderMD - 10/31/2018 1:17 AM CDT [facility] Emergency Department Depart Summary PERSON INFORMATION Name Crystal Archer Age 28 Years 1990 Sex Female Language PCP Marital Status Phone [id number] Visit Id Visit Reason Specialty Enc Type Emergency Med Service Referred by Track Group [facility] Discharge Tracking Id [id number] Checkout 10/30/2018 21:17:02 Checkin 10/30/2018 20:23:00 Acuity 4 - Non-urgent [facility] Dispo Type Arrival 10/30/2018 20:23:00 Reg Status LOS 000 00:54 Address: [address] [place] [address] [place] [address] POWERFORMS PHYSICIAN NOTES VITALS INFORMATION Vital Sign Triage Temp 99 Temp Route Oral/Mouth Pulse Rate 92 Respiratory Rate 22 Blood Pressure 169/ 99 LOCATION INFORMATION Arrival Nurse Unit Room Bed 10/30/2018 20:23:00 [facility] ED Waitroom ([facility]) 10/30/2018 20:35:06 [facility] ED 9 10/30/2018 21:17:02 [facility] ED Checkout ([facility] [...]
--- OUTSIDE RECORDS SUMMARY | 2025-07-12 13:58 | XMS_ITS | Encounter Summary ---
Author Organization [employer] ([place], [place], [place], [place], [place]) Address [address] [place] [address] Care Team Providers Care Gut Snatcher Name Role Phone Unavailable Primary Care Provider Unavailabl e Encounter Details Date Type Department Care Team (Late st Contact Info) Description 12/24/2018 Transcribed Document [facility] [place] Family Medicine [address] [place] [address] ProviderLaury MD [address] [place] [address] Social History Tobacco Use Types Packs/Day [...] Laury ProviderMD - 12/24/2018 7:19 PM CDT [facility] ADDRESS [place], [place] [phone] Name:Crystal Archer Visit Date:12/24/2018 15:01:00 Emergency Department Care Providers: Physician: MEGHA MAN Physician: Our doctors and staff appreciate your choice of [facility] for your emergency medical care. Read these instructions carefully. Please call us if you have any questions about your medical problem. [facility] Emergency Department [phone] [facility] Emergency Department [phone] [facility] Emergency Department [phone] Patient Education Materials Gianni Crystal Jones has [...] Medicines may be prescribed or be available ocvx-ltj-mcdoasl. The medicines may be: ??? Taken by mouth (orally). ??? Applied as a cream. Follow these instructions at home: ??? Take or apply dasa-dpl-ozhhbkz and prescription medicines only as told by [...] 03/21/2012 Document Revised: 02/27/2017 Document Reviewed: 01/05/2016 Vator.TV Interactive Patient Education ? 2019 [employer]. FOLLOW UP CARE Most conditions that require [...] o [facility] # [phone] o [facility] # [phone] o [facility] # [phone] ?? If you had cultures done and [...] quit. o National Network of Tobacco Cessation KWhkmkthx9-994-JXXJ-NOW o [place] Lung Association o [place]ian Heart Association [phone] o Sai/Manuel Mccray [phone] FINANCIAL INFORMATION ?? [facility] provides financial counseling to anyone who requests our services. ?? Emergency Physicians are independently contracted to provide your care. You will receive a bill for the care provided to you by the Physician and/or the Physician Turbine Assembler. This will be a separate bill [...] or Patient Box Packer Provider Signature Date Electronically signed by Rochelle, [facility] Conversion Processing Clerk Cerner at 10/19/2022 11:23 AM CDT documented in this encounter Plan of Treatment Not on file documented as of this encounter Visit Diagnoses Not on filedocumented in this encounter
--- OUTSIDE RECORDS SUMMARY | 2025-07-12 13:58 | XMS_ITS | Encounter Summary ---
Author Organization [employer] ([place], [place], [place], [place], [place]) Address [address] [place] [address] Care Team Providers Care Fire Fighter Airport Name Role Phone Unavailable Primary Care Provider Unavailabl e Encounter Details Date Type Department Care Team (Late st Contact Info) Description 08/03/2018 Transcribed Document [facility] [place] [address] [place] [address] ProviderLaury MD [address] [place] [address] Social History Tobacco Use Types Packs/Day [...] - Laury ProviderMD - 08/03/2018 7:32 PM CORK INSULATOR [facility] ADDRESS [place], [place] [phone] Name:Crystal Archer Visit Date:08/03/2018 13:52:00 Emergency Department Care Providers: Physician: MEGHA MAN Physician: Our doctors and staff appreciate your choice of [facility] for your emergency medical care. Read these instructions carefully. Please call us if you have any questions about your medical problem. [facility] Emergency Department [phone] [facility] Emergency Department [phone] [facility] Emergency Department [phone] Patient Education Materials Surendradarvin Crystal Jones has [...] x-ray department to pick them up o [facility] # [phone] o [facility] # [phone] o [facility] # [phone] ?? If you had cultures done and [...] quit. o National Network of Tobacco Cessation LOknykcez7-416-KHZH-NOW o [place] Lung Association o [place] Heart Association [phone] o Sai/Manuel Mccray [phone] FINANCIAL INFORMATION ?? [facility] provides financial counseling to anyone who requests our services. ?? Emergency Physicians are independently contracted to provide your care. You will receive a bill for the care provided to you by the Physician and/or the Physician Spring Winder. This will be a separate bill from [...] as recommended Patient Signature / or Patient Switch Operators Supervisor Provider Signature Date Date/Time 08/03/2018 14:32 Saint [...] Date Electronically signed by Zuleyka Byrd Conversion Engineering Technical Specialist Keysha at 10/19/2022 11:22 AM CDT documented in this encounter Plan of Treatment Not on file documented as of this encounter Visit Diagnoses Not on filedocumented in this encounter
--- OUTSIDE RECORDS SUMMARY | 2025-07-12 13:58 | XMS_ITS | Encounter Summary ---
Author Organization [facility] Address [address] 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
--- OUTSIDE RECORDS SUMMARY | 2025-07-12 13:58 | XMS_ITS | Encounter Summary ---
Author Organization [employer] ([place], [place], [place], [place], [place]) Address [address] [place] [address] Care Team Providers Care It Compliance Analyst Name Role Phone Unavailable Primary Care Provider Unavailabl e Encounter Details Date Type Department Care Team (Late st Contact Info) Description 01/04/2020 Transcribed Document [facility] [place] [address] [place] [address] ProviderLaury MD [address] [place] [address] Social History Tobacco Use Types Packs/Day [...] Laparoscopic sleeve gastrectomy SURGEON: Xavi Mejia M.D. LABORER PIPELINES: Dnaiel steinberg MD ANESTHESIA: General. SPECIMEN: Stomach. INDICATION [...] was done, we proceeded to place the 54-Irish bougie down the esophagus into the stomach under direct visualization. When it was in the antrum, we proceeded to staple the stomach in a parallel manner to the greater curvature, creating a sleeve gastrectomy using the [place] stapler. We used green loads, all [...]
--- OUTSIDE RECORDS SUMMARY | 2025-07-12 13:58 | XMS_ITS | Encounter Summary ---
Author Organization [employer] ([place], [place], [place], [place], [place]) Address [address] [place] [address] Care Team Providers Care Tool Machine Shop Supervisor Name Role Phone Unavailable Primary Care Provider Unavailabl e Encounter Details Date Type Department Care Team (Late st Contact Info) Description 01/08/2019 Transcribed Document [facility] [address] [place] [address] ProviderLaury MD [address] [place] [address] Social History Tobacco Use Types Packs/Day [...] Laury ProviderMD - 01/08/2019 12:31 AM CDT [facility] ADDRESS [place], [place] [phone] Name:Crystal Archer Visit Date:01/07/2019 18:52:00 Emergency Department Care Providers: Physician: Physician: Our doctors and staff appreciate your choice of [facility] for your emergency medical care. Read these instructions carefully. Please call us if you have any questions about your medical problem. [facility] Emergency Department [phone] [facility] Emergency Department [phone] [facility] Emergency Department [phone] Patient Education Materials Gianni Crystal Jones has [...] up o [facility] # [phone] o [facility] # [phone] o [facility] # [phone] ?? If you had cultures done and [...] quit. o National Network of Tobacco Cessation [id number]-LBSW-NOW o [place] [employer] o [place] [employer] Association [phone] o Sai/Manuel Mahendra [phone] FINANCIAL INFORMATION ?? [facility] provides financial counseling to anyone who requests our services. ?? Emergency Physicians are independently contracted to provide your care. You will receive a bill for the care provided to you by the Physician and/or the Physician Visual Education Teacher. This will be a separate [...] as recommended Patient Signature / or Patient Structural Steel Shop Supervisor Provider Signature Date documented in this encounter Plan of Treatment Not on file documented as of this encounter Visit Diagnoses Not on filedocumented in this encounter
--- OUTSIDE RECORDS SUMMARY | 2025-07-12 13:58 | XMS_ITS | Encounter Summary ---
Author Organization [employer] ([place], [place], [place], [place], [place]) Address [address] [place] [address] Care Team Providers Care Retail Shift Manager Name Role Phone Unavailable Primary Care Provider Unavailabl e Encounter Details Date Type Department Care Team (Late st Contact Info) Description 01/04/2020 Transcribed Document [facility] [place] Family Medicine [address] [place] [address] ProviderLaury MD [address] [place] [address] Social History Tobacco Use Types Packs/Day [...]
--- OUTSIDE RECORDS SUMMARY | 2025-07-12 13:58 | XMS_ITS | Encounter Summary ---
Author Organization [employer] ([place], [place], [place], [place], [place]) Address [address] [place] [address] Care Team Providers Care Guest Relations Receptionist Name Role Phone Unavailable Primary Care Provider Unavailabl e Encounter Details Date Type Department Care Team (Late st Contact Info) Description 12/28/2019 Transcribed Document [facility] [place] Family Medicine [address] [place] [address] ProviderLaury MD [address] [place] [address] Social History [...] Policy Numbers : Insurance 1 Health [facility] Policy Number: [id number] Authorization Number: Insurance Primary Name : [facility] Policy Number: [id number] Authorization Status-Primary : Admit approved Reference Number-Primary : [id number] Authorization Number-Primary : [id number] Number of Days Authorized-Primary : 0 Day(s) [...]
--- OUTSIDE RECORDS SUMMARY | 2025-07-12 13:58 | XMS_ITS | Clinical Summary ---
Author Organization [employer] ([place], [place], [place], [place], [place]) Address [address] [place] [address] Care Team Providers Care Cutter Operator Tile Name Role Phone Unavailable Primary Care Provider [...] Date Blaine rded Speak language other than Maltese at home Not on file 07/30/2023 Want [...] patient's age to complete this topic Insurance [facility] Advance Directives For more information, please contact: [phone] * Full Code (Latest Code Status on File) Date Activated Date Inactivated Comments 09/23/2022 6:27 AM 09/23/2022 11:31 AM
--- OUTSIDE RECORDS SUMMARY | 2025-07-12 13:58 | XMS_ITS | Encounter Summary ---
Author Organization [employer] ([place], [place], [place], [place], [place]) Address [address] [place] [address] Care Team Providers Care Commutator Repairer Name Role Phone Unavailable Primary Care Provider Unavailabl e Encounter Details Date Type Department Care Team (Late st Contact Info) Description 10/31/2018 Transcribed Document [facility] [place] [address] [place] [address] ProviderLaury MD [address] [place] [address] Social History Tobacco Use Types Packs/Day [...] 1:17 AM CDT [facility] ADDRESS [place], [place] [phone] Name:Crystal Archer Visit Date:10/30/2018 20:23:00 Emergency Department Care Providers: Physician: MEGHA MAN Physician: Our doctors and staff appreciate your choice of [facility] for your emergency medical care. Read these instructions carefully. Please call us if you have any questions about your medical problem. [facility] Emergency Department [phone] [facility] Emergency Department [phone] [facility] Emergency Department [phone] Patient Education Materials Gianni Crystal Karen has [...] 10/19/2011 Document Revised: 11/11/2016 Document Reviewed: 06/30/2015 Else[employer] Interactive Patient Education ? 2017 [employer] FOLLOW UP CARE Most conditions that [...] x-ray department to pick them up o [facility] # [phone] o [facility] # [phone] o [facility] # [phone] ?? If you had cultures done and [...] quit. o National Network of Tobacco Cessation [id number]-RLIZ-NOW o [place] [employer] Association o [place] Heart Association [phone] o Sai/Manuel Mccray [phone] FINANCIAL INFORMATION ?? [facility] provides financial counseling to anyone who requests our services. ?? Emergency Physicians are independently contracted to provide your care. You will receive a bill for the care provided to you by the Physician and/or the Physician Registrar [employer]. This will be a separate bill from [...] as recommended Patient Signature / or Patient Fisher Oyster Provider Signature Date Date/Time 10/30/2018 21:17 Saint [...] Dose Frequency amLODIPine 2.5 mg oral tablet Kyle 5 mg-325 mg oral tablet Comment: This [...]
--- OUTSIDE RECORDS SUMMARY | 2025-07-12 13:58 | XMS_ITS | Encounter Summary ---
Author Organization [employer] ([place], [place], [place], [place], [place]) Address [address] [place] [address] Care Team Providers Care Rn Clinical Documentation Specialist Name Role Phone Unavailable Primary Care Provider Unavailabl e Encounter Details Date Type Department Care Team (Late st Contact Info) Description 09/26/2018 Transcribed Document [facility] [address] [place] [address] ProviderLaury MD [address] [place] [address] Social History Tobacco Use Types Packs/Day [...] Complaints Primary Care Provider : Rema Ferreira, Microelectronics Engineer Accompanied By : Family/Spouse/SO Arrival Mode [...] : No GI 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 : No Cattle Sorter Hx : No Heart Attack : [...] Preferred Communication Mode : Verbal Languages : [place] Islander Child/Parent Domestic Concerns : None Threats of Suicide : No Marry Erickson 09/26/2018 16:51 EDT Height and Weight Height Source : Stated Height Entry Format : [place] Height, Inches : 65 Inch(Converted to: 5 ft 5 Inch, 165.10 cm) Clinical Height : 165.1 cm Weight Source : Stated Type of Weight Measurement Est : [place] Weight, est lb : 213 lb Estimated Clinical Dosing Weight : 96.82 kg [place] Body Weight : 57 kg Body Surface [...] ; Status: Documented ; Ordered As Mnemonic: [place] 5 mg-325 mg oral tablet ; Simple [...]
--- OUTSIDE RECORDS SUMMARY | 2025-07-12 13:58 | XMS_ITS | Encounter Summary ---
Author Organization [employer] ([place], [place], [place], [place], [place]) Address [address] [place] [address] Care Team Providers Care Magnaflux Operator Name Role Phone Unavailable Primary Care Provider Unavailabl e Encounter Details Date Type Department Care Team (Late st Contact Info) Description 11/19/2018 Transcribed Document [facility] [place] [address] [place] [address] ProviderLaury MD [address] [place] [address] Social History Tobacco Use Types Packs/Day [...] Laury ProviderMD - 11/19/2018 1:52 AM CDT [facility] ADDRESS [place], [place] [phone] Name:Crystal Archer Visit Date:11/18/2018 20:06:00 Emergency Department Care Providers: Physician: Clara Elias Phys Asst Physician: Our doctors and staff appreciate your choice of [facility] for your emergency medical care. Read these instructions carefully. Please call us if you have any questions about your medical problem. [facility] Emergency Department [phone] [facility] Emergency Department [phone] [facility] Emergency Department [phone] Patient Education Materials Surendradarvin Crystal Jones has [...] start to feel better. ??? Only take uart-edl-jyakyzm or prescription medicines for pain, discomfort, or [...] 01/29/2014 Elsevier Interactive Patient Education ? 2017 [employer] Obstetrics and Gynecology Urinary Tract Infection, Adult Introduction A urinary tract infection (UTI) is an infection of any part of the urinary tract. The urinary tract includes the: ??? Kidneys. ??? Ureters. ??? Bladder. ??? Urethra. These organs make, store, and get rid of pee (urine) in the body. Follow these instructions at home: ??? Take hyog-fyv-gzwxxpb and prescription medicines only as told by [...] x-ray department to pick them up o [facility] # [phone] o [facility] # [phone] o [facility] # [phone] ?? If you had cultures done and [...] quit. o National Network of Tobacco Cessation [id number]-HAZS-NOW o [place] Lung Association o [place] Heart Association [phone] o Sia/Manuel Mccray [phone] FINANCIAL INFORMATION ?? [facility] provides financial counseling to anyone who requests our services. ?? Emergency Physicians are independently contracted to provide your care. You will receive a bill for the care provided to you by the Physician and/or the Physician Restaurant Kitchen And Service Manager. This will be a separate bill [...] Patient Education Materials: ENT Otitis Media, Adult, Kzie-vm-Ruaa Obstetrics and Gynecology Urinary Tract Infection, Adult, Mako-vz-Jmus Follow-Up Instructions: Follow Up With: Where: When: [...] as recommended Patient Signature / or Patient Energy And Sustainability Manager Provider Signature Date Date/Time 11/18/2018 21:52 Saint [...] by (signature) Date Electronically signed by Rochelle, [facility] Conversion Fringing Machine Operator Keysha at 10/19/2022 11:23 AM CDT documented in this encounter Plan of Treatment Not on file documented as of this encounter Visit Diagnoses Not on filedocumented in this encounter
--- OUTSIDE RECORDS SUMMARY | 2025-07-12 13:58 | XMS_ITS | Clinical Summary ---
Author Organization [facility] Address [address] [place] [address] Care Team Providers Care Smoke Jumper Name Role Phone Jaquan Conley MD Primary Care Provider [phone] Social History Tobacco Use Types Packs/Day Years [...] 04/13/2023, 04/07/2021, Additional history exists Diabetes Screening 07/02/2026 07/02/2025, 0 12/31/2024, 09/24/2024, Additional history exists Lipid Panel 12/31/2029 12/31/2024, [...] Name Priority Date/Time Associated Diagnosis Comments URINALYSIS, COMPLETE, W REFLEX TO CULTURE Routine 07/02/2025 10:20 AM EST BK VIRUS PCR BLOOD Routine 07/02/2025 10 :02 AM EST TACROLIMUS LEVEL Routine 07/02/2025 10:0 2 AM EST MAGNESIUM Routine 07/02/2025 10:02 AM EST CMP COMPREHENSIVE METABOLIC PANEL Routine 07/02/2025 10:02 AM EST AUTODIFF Routine 07/02/2025 10:02 AM EST CBC AND DIFFERENTIAL Routine 07/02/2025 10:02 AM EST LIPID PANEL Routine 12/31/2024 9:28 AM EDT HEPATITIS C ANTIBODY WITH REFLEX TO HCV, RNA, QUANTITATIVE, REAL-TIME PCR (REFL) Routine 05/19/2023 8:10 AM EDT from Last 3 Months or Most Recently Relevant to Health Maintenance Results * (ABNORMAL) URINALYSIS, COMPLETE, W REFLEX TO CULTURE (07/02/2025 10:20 AM EST) URINE TYPE. U CleanCatch 07/02/2025 10:19 AM EST [facility] Urinalysis SS URINE COLOR YELLOW 07/02/2025 10:27 AM EST [facility] Urinalysis SS URINE APPEARANCE CLEAR 07/02/2025 10:27 AM EST [facility] Urinalysis SS URINE SPECIFIC GRAVITY 1.028 1.001 - 1.030 07/02/2025 10:27 AM EST [facility] Urinalysis SS URINE PH DIPSTICK 6.5(A) 07/02/2025 10:27 AM EST [facility] Urinalysis SS URINE LEUKOCYTE ESTERASE NEGATIVE Negative Maty/ul 07/02/2025 10:27 AM EST [facility] Urinalysis SS URINE NITRITE NEGATIVE Negative 07/02/2025 10:27 AM EST [facility] Urinalysis SS URINE PROTEIN DIPSTICK NEGATIVE Negative mg/dL 07/02/2025 10:27 AM EST [facility] Urinalysis SS URINE GLUCOSE DIPSTICK 50 mg/dL mg/dL 07/02/2025 10:27 AM EST [facility] Urinalysis SS URINE KETONES DIPSTICK NEGATIVE Negative mg/dL 07/02/2025 10:27 AM EST [facility] Urinalysis SS URINE UROBILINOGEN DIPSTICK NORMAL Normal mg/dL 07/02/2025 10:27 AM EST [facility] Urinalysis SS URINE BILIRUBIN DIPSTICK NEGATIVE Negative mg/dL 07/02/2025 10:27 AM EST [facility] Urinalysis SS URINE BLOOD DIPSTICK NEGATIVE Negative mg/dL 07/02/2025 10:27 AM EST [facility] Urinalysis SS Comment:In the total absence of hemolysis, a negative result may occur and not agree with the results of a urine sediment examination. CORRELATE UA Correlated Correlated 07/02/2025 10:28 AM EST [facility] Urinalysis SS UR RBC 0-4 None /HPF 07/02/2025 10:27 AM EST [facility] Urinalysis SS UR WBC 0-4 None /HPF 07/02/2025 10:27 AM EST [facility] Urinalysis SS UR SQUAMOUS EPITHELIAL CELLS 0-4 None /HPF 07/02/2025 10:27 AM EST [facility] Urinalysis SS Urine 07/02/2025 10:2 0 AM EST 07/02/2025 10:20 AM EST [facility] - 07/02/2025 10:28 AM [place] [address] [facility]ABLES Final Re sult Performing Organization Address [facility] [place] [address], [facility] Urinalysis SS Pathology Department [address] [place] [address] * BK Virus PCR Blood (07/02/2025 10:02 AM EST) BK VIRUS PCR QUAL, BLOOD NOT DETECTED Not Detected 07/04/2025 8:40 AM EST [facility] MB Molecular SS Comment:The linear range of this test is 21.5 - 100,000,000 IU/mL. Any result of <21.5 or >100,000,000 indicates a true value outside of the range that can be accurately determined using our current methodology. Blood 07/02/2025 10:0 2 AM EST 07/02/2025 1:58 PM EST [facility] - 07/04/2025 8:40 AM EST Performed by [facility], [address] [place] [address] Critical access hospital LAB BLOOD ORDERABLES Final Re sult Performing Organization Address [facility] Co de Phone Number [facility] [address] [place] [address], [facility] MB Molecular SS Pathology Department [address] [place] [address] * AUTODIFF (07/02/2025 10:02 AM EST) NEUT % 71.2 34.0 - 75.0 % 07/02/2025 10:44 AM EST [facility] Heme Coag UA SS LYMPH % 20.9 17.0 - 53.0 % 07/02/2025 10:44 AM EST [facility] Heme Coag UA SS MONO % 6.6 2.0 - 12.0 % 07/02/2025 10:44 AM EST [facility] Heme Coag UA SS EOS % 0.9 0.0 - 7.0 % 07/02/2025 10:44 AM EST [facility] Heme Coag UA SS BASO % 0.4 0.0 - 3.0 % 07/02/2025 10:44 AM EST [facility] Heme Coag UA SS NEUT # 3.3 1.5 - 7.1 x10(3)/ul 07/02/2025 10:44 AM EST [facility] Heme Coag UA SS LYMPH # 1.0 1.0 - 3.5 x10(3)/ul 07/02/2025 10:44 AM EST [facility] Heme Coag UA SS MONO # 0.3 0.0 - 1.0 x10(3)/ul 07/02/2025 10:44 AM EST [facility] Heme Coag UA SS EOS # 0.0 0.0 - 0.7 x10(3)/ul 07/02/2025 10:44 AM EST [facility] Heme Coag UA SS BASO # 0.0 0.0 - 0.3 x10(3)/ul 07/02/2025 10:44 AM EST [facility] Heme Coag UA SS Blood 07/02/2025 10:0 2 AM EST 07/02/2025 10:19 AM EST [facility] - 07/02/2025 10:44 AM EST Ordered by Discern Expert. Performed by [facility], [address] [place] [address] Nikki Latia SAP HANA ARCHITECT LAB BLOOD ORDERABLES Final Re sult Performing Organization Address [facility]/ZIP Co de Phone Number [facility] [address] [place] [address], [facility] Heme Coag UA SS Pathology Department [address] [place] [address] * Tacrolimus level (07/02/2025 10:02 AM EST) Tacrolimus Lvl 6.2 5.0 - 20.0 ng/mL 07/02/2025 3:42 PM EST [facility] Special Chemistry SS Comment: This test was performed, developed and its performance characteristics determined by at [facility], [address] [place] [address], [facility], [place], using a Laboratory Developed Test Tandem Mass Spectrometry LC/MS/MS. It has not been cleared or approved by the [place] Food and Drug Administration. Validation data is available upon request. Blood 07/02/2025 10:0 2 AM EST 07/02/2025 10:19 AM EST [facility] - 07/02/2025 3:42 PM EST Performed by [facility], [address] [place] [address] Nikki Latia SAP HANA ARCHITECT LAB BLOOD ORDERABLES Final Re sult Performing Organization Address [facility]/ZIP Co de Phone Number [facility] [address] [place] [address], [facility] Special Chemistry SS Pathology Department [address] [place] [address] * (ABNORMAL) CBC With Differential (07/02/2025 10:02 AM EST) WBC 4.6 4.0 - 10.8 x10(3)/ul 07/02/2025 10:44 AM EST [facility] Heme Coag UA SS RBC 3.96 3.77 - 5.16 x10(6)/ul 07/02/2025 10:44 AM EST [facility] Heme Coag UA SS HGB 12.0 12.0 - 16.0 Gram/dL 07/02/2025 10:44 AM EST [facility] Heme Coag UA SS Hematocrit 34.9(L) 35.0 - 45.0 % 07/02/2025 10:44 AM EST [facility] Heme Coag UA SS MCV 88.2 79.4 - 94.8 fL 07/02/2025 10:44 AM EST [facility] Heme Coag UA SS MCH 30.4 25.6 - 32.2 pg 07/02/2025 10:44 AM EST [facility] Heme Coag UA SS MCHC 34.5 32.3 - 36.5 Gram/dL 07/02/2025 10:44 AM EST [facility] Heme Coag UA SS RDW 13.7 11.0 - 15.5 % 07/02/2025 10:44 AM EST [facility] Heme Coag UA SS Platelets 177 140 - 420 x10(3)/ul 07/02/2025 10:44 AM EST [facility] Heme Coag UA SS MPV 10.7 6.5 - 12.0 fL 07/02/2025 10:44 AM EST [facility] Heme Coag UA SS SLIDE REVIEW NONE 07/02/2025 10:44 AM EST [facility] CH Remisol 2.0 SS Blood 07/02/2025 10:0 2 AM EST 07/02/2025 10:19 AM EST [facility] - 07/02/2025 10:44 AM [place] [address] Nikki Jeffery SAP HANA ARCHITECT LAB BLOOD ORDERABLES Final Re sult Performing Organization Address City/State/[facility] Co de Phone Number [facility] [address] [place] [address], [facility] Heme Coag UA SS Pathology Department [address] [place] [address] [facility] CH Remisol 2.0 SS Pathology Department [address] [place] [address] * (ABNORMAL) Magnesium (07/02/2025 10:02 AM EST) Magnesium 1.6(L) 1.9 - 2.7 mg/dL 07/02/2025 10:47 AM EST [facility] CH Remisol 2.0 SS Blood 07/02/2025 10:0 2 AM EST 07/02/2025 10:19 AM EST [facility] - 07/02/2025 10:47 AM EST Performed by [facility], [address] [place] [address] [place] Nikki Jeffery SAP HANA ARCHITECT LAB BLOOD ORDERABLES Final Re sult [facility] [address] [place] [address], [facility] CH Remisol 2.0 SS Pathology Department [address] [place] [address] * (ABNORMAL) Comprehensive metabolic panel (07/02/2025 10:02 AM EST) Sodium 139 136 - 145 mmol/L 07/02/2025 10:47 AM EST [facility] CH Remisol 2.0 SS Potassium 4.4 3.5 - 5.1 mmol/L 07/02/2025 10:47 AM EST [facility] CH Remisol 2.0 SS Chloride 109 98 - 110 mmol/L 07/02/2025 10:47 AM EST [facility] CH Remisol 2.0 SS CO2 26 21 - 31 mmol/L 07/02/2025 10:47 AM EST [facility] CH Remisol 2.0 SS Comment:LDH (LD) levels abov e 2000 U/L will result in a positive bias on the CO2 (bicarbonate) level. Please interpret with caution. Anion Gap 4.0 2.0 - 11.0 07/02/2025 10:47 AM EST [facility] CH Remisol 2.0 SS Calcium 9.0 8.6 - 10.2 mg/dL 07/02/2025 10:47 AM EST [facility] CH Remisol 2.0 SS Glucose 181(H) 74 - 109 mg/dL 07/02/2025 10:47 AM EST [facility] CH Remisol 2.0 SS BUN 20 7 - 25 mg/dL 07/02/2025 10:47 AM EST [facility] CH Remisol 2.0 SS Creatinine 0.94 0.60 - 1.20 mg/dL 07/02/2025 10:47 AM EST [facility] CH Remisol 2.0 SS BUN/Creatinine Ratio 21.3 6.0 - 22.0 07/02/2025 10:47 AM EST [facility] CH Remisol 2.0 SS Albumin 4.2 3.5 - 5.2 Gram/dL 07/02/2025 10:47 AM EST [facility] CH Remisol 2.0 SS Total Protein 6.6 6.4 - 8.9 Gram/dL 07/02/2025 10:47 AM EST [facility] CH Remisol 2.0 SS A/G Ratio 1.8 1.0 - 2.5 07/02/2025 10:47 AM EST [facility] CH Remisol 2.0 SS Alkaline Phosphatase 70 34 - 104 Units/Lite r 07/02/2025 10:47 AM EST [facility] CH Remisol 2.0 SS ALT (SGPT) 20 <=24 Units/Lite r 07/02/2025 10:47 AM EST [facility] CH Remisol 2.0 SS AST 15 13 - 39 Units/Lite r 07/02/2025 10:47 AM EST [facility] CH Remisol 2.0 SS Total Bilirubin 0.5 0.3 - 1.0 mg/dL 07/02/2025 10:47 AM EST [facility] CH Remisol 2.0 SS Globulin, Total 2.4 2.0 - 3.5 Gram/dL 07/02/2025 10:47 AM EST [facility] CH Remisol 2.0 SS EGFR 81 >=60 mL/min/1.7 3m2 07/02/2025 10:47 AM EST [facility] CH Remisol 2.0 SS Comment:eGFR calculation per formed using the CKD-EPI 2020 equation (race variable excluded) Blood 07/02/2025 10:0 2 AM EST 07/02/2025 10:19 AM EST [facility] - 07/02/2025 10:47 AM EST Performed by [facility], [address] [place] [address] us Nikki Jeffery SAP HANA ARCHITECT LAB BLOOD ORDERABLES Final Re sult [facility] [address] [place] [address], [facility] CH Remisol 2.0 SS Pathology Department [address] [place] [address] * (ABNORMAL) Lipid panel (12/31/2024 9:28 AM [...] - 12/31/2024 10:31 AM EDT Performed by [facility], [address] [place] [address] Nikki Jeffery APRN LAB BLOOD ORDERABLES Final Re sult Performing Organization Address City/State/[facility] Co de Phone Number [facility] [address] [place] [address], [facility] CH Remisol 2.0 SS Pathology Department [address] [place] [address] * Hepatitis C antibody (05/19/2023 8:10 AM EDT) Hep C Virus Ab NONREACTIVE Nonreactive 05/19/2023 12:09 PM EDT [facility] Core CH Remisol SS Blood 05/19/2023 8:10 AM EDT 05/19/2023 11:19 AM EDT us Yue Kraft MD LAB BLOOD ORDERABLES Edited Resu lt - Final [facility] [address] [place] [address], [facility] CH Remisol Pathology Department [address] [place] [address] from Last 3 Months or Most Recently Relevant to Health Maintenance Insurance [place] Care Teams Smoke Jumper Relationship Specialty Start Date End Date Jaquan Conley MD [address] [place] [address] [place] Leav[place] [phone] PCP - General Internal Medicine 09/18/20
--- OUTSIDE RECORDS SUMMARY | 2025-07-12 13:58 | XMS_ITS | Encounter Summary ---
Author Organization [employer] ([place], [place], [place], [place], [place]) Address [address] [place] [address] Care Team Providers Care Retail Furniture Sales Name Role Phone Unavailable Primary Care Provider Unavailabl e Encounter Details Date Type Department Care Team (Late st Contact Info) Description 09/26/2018 Transcribed Document [facility] Family Medicine [address] [place] [address] ProviderLaury MD [address] [place] [address] Social History Tobacco Use Types Packs/Day [...] Laury ProviderMD - 09/26/2018 10:56 PM CDT [facility] Emergency Department Depart Summary PERSON INFORMATION Name Crystal Archer Age 28 Years 1990 Sex Female Language PCP Marital Status Phone [phone] Visit Id Visit Reason Specialty Enc Type Emergency Med Service Referred by Track Group [facility] Discharge Tracking Id [id number] Checkout 09/26/2018 18:56:15 Checkin 09/26/2018 16:44:00 Acuity 3 - Urgent [facility] Dispo Type Arrival 09/26/2018 16:44:00 Reg Status LOS 000 02:12 Address: [address] [place] [address] [place] [address] POWERFORMS PHYSICIAN NOTES VITALS INFORMATION Vital Sign Triage Temp 98.7 Temp Route Oral/Mouth Pulse Rate 102 Respiratory Rate 20 Blood Pressure 140/ 72 LOCATION INFORMATION Arrival Nurse Unit Room Bed 09/26/2018 16:44:00 [facility] ED Waitroom ([facility]) 09/26/2018 16:50:17 [facility] ED 3 09/26/2018 18:56:15 [facility] ED Checkout ([facility]) MEDICAL INFORMATION Allergy Info: No Known Allergies PATIENT EDUCATION INFORMATION Instructions: Hematuria, Adult Follow up: With: Address: When: Follow up with primary care provider Within 5 to 7 days DIAGNOSIS Electronically signed by Christopher Byrd Conversion Cell Phone Repair Technician Cerner at 10/19/2022 11:22 AM CDT documented in this encounter Plan of Treatment Not on file documented as of this encounter Visit Diagnoses Not on filedocumented in this encounter
--- OUTSIDE RECORDS SUMMARY | 2025-07-12 13:58 | XMS_ITS | Encounter Summary ---
Author Organization [employer] ([place], [place], [place], [place], [place]) Address [address] [place] [address] Care Team Providers Care Family Law Legal Assistant Name Role Phone Unavailable Primary Care Provider Unavailabl e Encounter Details Date Type Department Care Team (Late st Contact Info) Description 08/24/2019 Transcribed Document [facility] Family Medicine [address] [place] [address] ProviderLaury MD [address] [place] [address] Social History Tobacco Use Types Packs/Day [...] - Historical ProviderMD - 08/24/2019 11:11 AM PRODUCT DESIGNER [facility] IntraOp Summary Primary Physician: LARRY MARTINES MD-SUR Finalized Date/Time: 08/24/19 12:55:12 Pt. Name: FREDDIE RUGGIERO FELICIA /Sex: 1990 Female Med Rec #: [id number] Physician: LARRY MARTINES MD-SUR Financial #: [id number] Pt. Type: O Room/Bed: [facility] Admit/Disch: 08/24/19 09:42:00 - Institution: [facility] Endo - Case Attendance Entry 1 Entry 2 Entry 3 Case Attendee LARRY MARTINES Childress, TOBI J, RN ELLIOTT MOURA TECH MD-SUR Role Performed Surgeon/Proceduralist, Mold Chipper, First Scrub, First First Time In 08/24/19 11:09:00 08/24/19 11:09:00 08/24/19 11:09:00 Time Out 08/24/19 11:15:00 08/24/19 11:15:00 08/24/19 11:15:00 Procedure Gastric Biopsy Esophagogastroduodenosco Esophagogastroduodenosco py, Gastric Biopsy py, Gastric Biopsy Other Attendee Superficial Wound Closed By: Last Modified By: ANGE Green RN Childress, TOBI J, RN Childress, TOBI J, RN 08/24/19 11:14:47 08/24/19 11:14:47 08/24/19 11:14:47 Entry 4 Case Attendee MARGRET MCCULLOUGH GARNETT FIXER Role Performed GARNETT FIXER/Nurse Electronic Equipment Repairmen Time In 08/24/19 11:09:00 Time Out 08/24/19 11:15:00 Procedure Esophagogastroduodenosco py, Gastric Biopsy Other Attendee Superficial Wound Closed By: Last Modified By: ANGE Green RN 08/24/19 11:14:47 [facility] Endo - Case Attendance Audit 08/24/19 11:14:47 Cell Maker: GEOVANNA Modifier: [email or web address] 1 <+> Time Out 1 <*> Procedure Gastric Biopsy 2 <+> Time Out 2 <*> Procedure Esophagogastroduodenoscopy, Gastric Biopsy 3 <+> Time Out 3 <*> Procedure Esophagogastroduodenoscopy, Gastric Biopsy 4 <+> Time Out 4 <*> Procedure Esophagogastroduodenoscopy, Gastric Biopsy 08/24/19 11:12:38 Cell Maker: [email or web address] Modifier: [email or web address] <+> 1 Procedure 2 <*> Procedure Esophagogastroduodenoscopy 3 <*> Procedure Esophagogastroduodenoscopy 4 <*> Procedure Esophagogastroduodenoscopy 08/24/19 11:11:44 Cell Maker: [email or web address] Modifier: [email or web address] 2 <+> Time In [...] Endo - Case Times Audit 08/24/19 11:13:59 Cell Maker: [email or web address] Modifier: [email or web address] <+> 1 Out Room Time <+> 1 Stop Time <+> 1 Stop Time 08/24/19 11:11:59 Cell Maker: [email or web address] Modifier: [email or web address] <+> 1 Start Time [facility] - Cultures and Spec Summary Entry 1 Cultrures and Specimens Specimen Ordered: Yes Last Modified By: ANGE Green RN 08/24/19 11:14:38 [facility] - Delays Entry 1 Delay Reason Other Duration 0 Minute(s) Comment NO DELAY Last Modified By: ANGE Green RN 08/24/19 11:09:48 [facility] - Delays Audit 08/24/19 11:09:48 Cell Maker: [email or web address] Modifier: [email or web address] <+> 1 Comment [facility] [...] Modified By: ANGE Green RN 08/24/19 11:09:51 [facility] Endo - Fire Risk Assessment Entry 1 Fire Info Surgical Site or 1- Yes Incision Above the Xyphoid Open O2 Source 1- Yes (Mask or Cannula) Available Ignition 1- Yes (ESU, Laser, Light Source) Fire Risk 3 Assessment Score Fire Score Fire Risk Yes Assessment Complete Fire Risk ANGE Green rayon coner Verified By Fire Risk 08/24/19 11:10:00 Assessment Verified Date/Time Fire Risk High Risk Protocol Yes Implemented Standard Fire Yes Safety Precautions Followed Last Modified By: ANGE Green RN 08/24/19 11:10:04 [facility] Endo - General Case Director Business Systems 1 Case Information OR Endo 01 [facility] Case Level 1 Room Verified Yes Wound Class II - Clean-Contaminated Specialty SN General Anesthesia Type MAC ASA Class 3 Diagnosis Preop Diagnosis GERD Postop Same As Preop No Postop Diagnosis normal EGD Last Modified By: ANGE Green RN 08/24/19 11:11:13 [facility] Endo - General Case Data Audit 08/24/19 11:14:21 Cell Maker: GEOVANNA Modifier: [email or web address] <+> 1 Postop Diagnosis [facility] Endo - Intraoperative Assessment Entry 1 Valid History / Yes Physical in Chart Preoperative Yes Checklist Reviewed/Evaluated Allergies Reviewed Yes Patient is Latex No Sensitive Level of WDL Consciousness (WDL = Alert, Oriented to Person, Place, and Time) Present Upon IVs, ECG monitored Arrival to OR Prosthetic/Assistive Insulin pump Devices Last Modified By: ANGE Green RN 08/24/19 11:11:51 [facility] Endo - Intraoperative Assessment Audit 08/24/19 12:55:06 Cell Maker: GEOVANNA Modifier: [email or web address] <+> 1 Prosthetic/Assistive Devices [facility] Endo - Intraoperative Equipment Entry 1 Type [...] Endo - Patient Positioning Audit 08/24/19 11:12:40 Cell Maker: GEOVANNA Modifier: [email or web address] 1 <*> Procedure Esophagogastroduodenoscopy [...] Endo - Sign Out Audit 08/24/19 11:14:13 Cell Maker: GEOVANNA Modifier: [email or web address] <+> 1 RN Sign [...] II - Clean-Contaminated Last Modified By: ANGE rGeen RN Childress, TOBI J, RN 08/24/19 11:12:34 08/24/19 11:12:34 [facility] Endo - Surgical Procedures Audit 08/24/19 11:14:04 Cell Maker: GEOVANNA Modifier: [email or web address] <+> 1 Stop <+> 2 Stop [facility] Endo - Time Out Entry 1 Procedure [...] Modified By: ANGE Green RN 08/24/19 11:12:41 [facility] Endo - Time Out Audit 08/24/19 11:12:41 Cell Maker: GEOVANNA Modifier: [email or web address] 1 <*> Procedure to be Performed Esophagogastroduodenoscopy 08/24/19 11:12:26 Cell Maker: GEOVANNA Modifier: [email or web address] 1 <*> Beta Renae [...] GEOVANNA Correct Documentation Electronically signed by Rochelle [facility] Conversion Instrument Worker Cerner at 11/02/2022 10:11 AM CDT documented in this encounter Plan of Treatment Not on file documented as of this encounter Visit Diagnoses Not on filedocumented in this encounter
--- OUTSIDE RECORDS SUMMARY | 2025-07-12 13:58 | XMS_ITS | Encounter Summary ---
Author Organization [facility] Address [address] [place] [address] Care Team Providers Care Plisse Machine Operator Name Role Phone Jaquan Conley MD Primary Care Provider [phone] Reason for Visit * Reason Comments Med Refill Encounter Details Date Type Department Care Team (Late st Contact Info) Description 09/25/2024 Refill [facility] - Transplantation Surgery [address] [address] Cb Forrester MD [address] [place] [address] [address] [place] [address] Social History Tobacco Use Types Packs/Day Years [...] on filedocumented in this encounter Care Teams Plisse Machine Operator Relationship Specialty Start Date End Date Jaquan Conley MD [address] [place] [address] [place] [address] PCP - General Internal Medicine 09/18/20 documented as of this encounter
--- OUTSIDE RECORDS SUMMARY | 2025-07-12 13:58 | XMS_ITS | Encounter Summary ---
Author Organization [employer] ([place], [place], [place], [place], [place]) Address [address] [place] [address] Care Team Providers Care Natural Resources Extension Educator Name Role Phone Unavailable Primary Care Provider Unavailabl e Encounter Details Date Type Department Care Team (Late st Contact Info) Description 11/19/2018 Transcribed Document [facility] Family Medicine [address] [place] [address] ProviderLaury MD [address] [place] [address] Social History Tobacco Use Types Packs/Day [...] 4 - Non-urgent BBK Tracking Group : MG Marry Ramírez 11/18/2018 20:14 EDT ED Visit [...] : No GI 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 : No Model Dresser Hx : No Heart Attack : No [...] Preferred Communication Mode : Verbal Languages : Russian Child/Parent Domestic Concerns : None Threats of Suicide : No Marry Erickson 11/18/2018 20:14 EDT Height and Weight Height Source : Stated Height Entry Format : [place] Height, Inches : 65 Inch(Converted to: 5 ft 5 Inch, 165.10 cm) Clinical Height : 165.1 cm Weight Source : Bed scale Weight Entry Format : [place] Weight, Pounds : 220 lb Clinical Dosing Weight : 100 kg Body Surface Area-(BSA) : 2.14 m2 Body Mass Index : 36.7 kg/m2 (HI) [place] Body Weight : 57 kg Marry Erickson [...] Electronically signed by Zuleyka Byrd Conversion Family Welfare Social Work Professor Cerner at 10/19/2022 11:23 AM CDT documented in this encounter Plan of Treatment Not on file documented as of this encounter Visit Diagnoses Not on filedocumented in this encounter
--- OUTSIDE RECORDS SUMMARY | 2025-07-12 13:58 | XMS_ITS | Encounter Summary ---
Author Organization [employer] ([place], [place], [place], [place], [place]) Address [address] [place] [address] Care Team Providers Care Custom Bike Builder Name Role Phone Unavailable Primary Care Provider Unavailabl e Encounter Details Date Type Department Care Team (Late st Contact Info) Description 08/24/2019 Transcribed Document [facility] Family Medicine [address] [place] [address] ProviderLaury MD [address] [place] [address] Social History Tobacco Use Types Packs/Day [...] - Historical ProviderMD - 08/24/2019 2:30 PM MIRROR PAINTER [facility] PreOp Summary Primary Physician: LARRY MARTINES MD-SUR Finalized Date/Time: 08/24/19 10:30:24 Pt. Name: FREDDIE RUGGIERO FELICIA /Sex: 1990 Female Med Rec #: [id number] Physician: LARRY MARTINES MD-SUR Financial #: [id number] Pt. Type: O Room/Bed: [facility]/ Admit/Disch: 08/24/19 09:42:00 - Institution: [facility] PreOp Case Times Entry 1 In Preop 08/24/19 10:06:00 Ready for Holding n/a Room Patient Ready for 08/24/19 10:30:00 Surgery Patient Out of Preop 08/24/19 10:30:00 Patient Out of n/a Holding Room [facility] PreOp Case Times Audit 08/24/19 10:30:23 Edge Molder: GEOVANNA Modifier: [email or web address] <+> 1 Patient Out of Preop <+> 1 Patient Ready for Surgery Finalized By: ANGE Green RN Document Signatures Signed By: ANGE Green RN 08/24/19 10:30 Electronically signed by Rochelle [facility] Conversion Preform Machine Operator Cerner at 11/02/2022 10:00 AM CDT documented in this encounter Plan of Treatment Not on file documented as of this encounter Visit Diagnoses Not on filedocumented in this encounter
--- OUTSIDE RECORDS SUMMARY | 2025-07-12 13:58 | XMS_ITS | Encounter Summary ---
Author Organization [employer] ([place], [place], [place], [place], [place]) Address [address] [place] [address] Care Team Providers Care Tooth Cutter Contact Wheel Name Role Phone Unavailable Primary Care Provider Unavailabl e Encounter Details Date Type Department Care Team (Late st Contact Info) Description 08/03/2018 Transcribed Document [facility] Family Medicine [address] [place] [address] ProviderLaury MD [address] [place] [address] Social History Tobacco Use Types Packs/Day [...] - Laury ProviderMD - 08/03/2018 7:32 PM LOCAL OWNER OPERATOR TRUCK DRIVER [facility] ADDRESS [place], [place] [phone] Name:Crystal Archer Visit Date:08/03/2018 13:52:00 Emergency Department Care Providers: Physician: MEGHA MAN Physician: Our doctors and staff appreciate your choice of [facility] for your emergency medical care. Read these instructions carefully. Please call us if you have any questions about your medical problem. [facility] Emergency Department [phone] [facility] Emergency Department [phone] [facility] Emergency Department [phone] Patient Education Materials Surendradarvin Crystal Jones has [...] x-ray department to pick them up o [facility] # [phone] o [facility] # [phone] o [facility] # [phone] ?? If you had cultures done and [...] quit. o National Network of Tobacco Cessation [id number] o [place] Lung Association o [place] Heart Association 4-532949-0076 o Sai/Manuel Mccray [phone] FINANCIAL INFORMATION ?? [facility] provides financial counseling to anyone who requests our services. ?? Emergency Physicians are independently contracted to provide your care. You will receive a bill for the care provided to you by the Physician and/or the Physician Marking Room Supervisor. This will be a separate [...] as recommended Patient Signature / or Patient Firmware Test Engineer Provider Signature Date documented in this encounter Plan of Treatment Not on file documented as of this encounter Visit Diagnoses Not on filedocumented in this encounter
--- OUTSIDE RECORDS SUMMARY | 2025-07-12 13:58 | XMS_ITS | Encounter Summary ---
Author Organization [employer] ([place], [place], [place], [place], [place]) Address [address] [place] [address] Care Team Providers Care Manager Field Investigations Name Role Phone Unavailable Primary Care Provider Unavailabl e Encounter Details Date Type Department Care Team (Late st Contact Info) Description 12/24/2018 Transcribed Document [facility] Family Medicine [address] [place] [address] ProviderLaury MD [address] [place] [address] Social History Tobacco Use Types Packs/Day [...] Laury ProviderMD - 12/24/2018 7:19 PM CDT [facility] AD[address] [place], [place] [phone] Name:Crystal Archer Visit Date:12/24/2018 15:01:00 Emergency Department Care Providers: Physician: MEGHA MAN Physician: Our doctors and staff appreciate your choice of [facility] for your emergency medical care. Read these instructions carefully. Please call us if you have any questions about your medical problem. [facility] Emergency Department [phone] [facility] Emergency Department [phone] [facility] Emergency Department [phone] Patient Education Materials Gianni Crystal Jones has [...] Medicines may be prescribed or be available jgom-zpn-gvcaeyq. The medicines may be: ??? Taken by mouth (orally). ??? Applied as a cream. Follow these instructions at home: ??? Take or apply mxwd-udk-kflkvfm and prescription medicines only as told by [...] 03/21/2012 Document Revised: 02/27/2017 Document Reviewed: 01/05/2016 [employer] Interactive Patient Education ? 2019 [employer]. FOLLOW UP CARE Most conditions that require [...] up o [facility] # [phone] o [facility] # [phone] o [facility] # [phone] ?? If you had cultures done and [...] quit. o National Network of Tobacco Cessation [id number]-UFAB-NOW o [place] Lung Association o [place] Heart Association [phone] o Sai/Manuel Mccray [phone] FINANCIAL INFORMATION ?? [facility] provides financial counseling to anyone who requests our services. ?? Emergency Physicians are independently contracted to provide your care. You will receive a bill for the care provided to you by the Physician and/or the Physician Block Cutter. This will be a separate bill from [...] as recommended Patient Signature / or Patient Employee Welfare Manager Provider Signature Date Date/Time 12/24/2018 15:19 [...]
--- OUTSIDE RECORDS SUMMARY | 2025-07-12 13:58 | XMS_ITS | Encounter Summary ---
Author Organization [facility] Address [address] [id number] Care Team Providers Care Lead Sql Developer Name Role Phone Maria A Soria BUCCARO Primary Care Provider [phone] Encounter Details Date Type Department Care Team (Late st Contact Info) Description 07/08/2025 Telephone [facility] [address] [place] [phone] Maria A Soria, BUCCARO [address] [place], [place] [id number] Social History Tobacco Use Types Packs/Day Years [...] encounter Miscellaneous Notes * Telephone Encounter - Sandra Lucas RegSched Rep - 07/08/2025 10:41 AM EST FREDDIE CALLED FOR APPT ON 07/10 FOR HER D/T UTI, UNABLE TO BOOK NO APPT AVAILABLE. SHE CAN NOT COME TODAY DUE TO TRANSPORTATION. documented in this encounter Plan of Treatment Not on file documented as of this encounter Visit Diagnoses Not on filedocumented in this encounter Care Teams Lead Sql Developer Relationship Specialty Start Date End Date Maria A Soria APRN [address] [place] [address] PCP - General Family Medicine 02/15/23 documented as of this encounter
--- OUTSIDE RECORDS SUMMARY | 2025-07-12 13:58 | XMS_ITS | Encounter Summary ---
Author Organization [employer] ([place], [place], [place], [place], [place]) Address [address] [place] [address] Care Team Providers Care Access Director Name Role Phone Unavailable Primary Care Provider Unavailabl e Encounter Details Date Type Department Care Team (Late st Contact Info) Description 01/08/2019 Transcribed Document [facility] Family Medicine [address] [place] [address] ProviderLaury MD [address] [place] [address] Social History Tobacco Use Types Packs/Day [...] Laury ProviderMD - 01/08/2019 12:31 AM CDT [facility] ADDRESS [place], [place] [phone] Name:Crystal Archer Visit Date:01/07/2019 18:52:00 Emergency Department Care Providers: Physician: Physician: Our doctors and staff appreciate your choice of [facility] for your emergency medical care. Read these instructions carefully. Please call us if you have any questions about your medical problem. [facility] Emergency Department [phone] [facility] Emergency Department [phone] [facility] Emergency Department [phone] Patient Education Materials Gianni Crystal Jones has [...] them up o [facility] # [phone] o [facility] # [phone] o [facility] # [phone] ?? If you had cultures done and [...] quit. o National Network of Tobacco Cessation [id number]-NOW o [place] Lung Association o [place] Heart Association [phone] o Sai/Manuel Mahendra [phone] FINANCIAL INFORMATION ?? [facility] provides financial counseling to anyone who requests our services. ?? Emergency Physicians are independently contracted to provide your care. You will receive a bill for the care provided to you by the Physician and/or the Physician Commercial Plumber. This will be a separate bill from [...] as recommended Patient Signature / or Patient Hat Block Maker Provider Signature Date Date/Time 01/07/2019 20:31 [facility] [...]
--- OUTSIDE RECORDS SUMMARY | 2025-07-12 13:58 | XMS_ITS | Encounter Summary ---
Author Organization [employer] ([place], [place], [place], [place], [place]) Address [address] [place] [address] Care Team Providers Care Archery Equipment Hay Sorter Name Role Phone Unavailable Primary Care Provider Unavailabl e Encounter Details Date Type Department Care Team (Late st Contact Info) Description 09/26/2018 Transcribed Document [facility] Family Medicine [address] [place] [address] ProviderLaury MD [address] [place] [address] Social History Tobacco Use Types Packs/Day [...] ProviderMD - 09/26/2018 10:56 PM CDT [facility] ADDRESS [place], [place] [phone] Name:Crystal Archer Visit Date:09/26/2018 16:44:00 Emergency Department Care Providers: Physician: INDIO PEREA Physician: Our doctors and staff appreciate your choice of [facility] for your emergency medical care. Read these instructions carefully. Please call us if you have any questions about your medical problem. [facility] Emergency Department [phone] [facility] Emergency Department [phone] [facility] Emergency Department [phone] Patient Education Materials Crystal Archer Karen has [...] 07/04/2006 Document Revised: 12/09/2016 Document Reviewed: 03/04/2014 [employer] Interactive Patient Education ? 2017 [employer]. FOLLOW UP CARE Most conditions that [...] x-ray department to pick them up [facility] # [phone] [facility] # [phone] o [facility] # [phone] ?? If you had cultures done and [...] quit. o National Network of Tobacco Cessation [id number] o [place] Lung Association o [place] Heart Association 5-543711-0011 o Sai/Manuel Mccray [phone] FINANCIAL INFORMATION ?? [facility] provides financial counseling to anyone who requests our services. ?? Emergency Physicians are independently contracted to provide your care. You will receive a bill for the care provided to you by the Physician and/or the Physician Any Commodity Buyer. This will be a separate bill from [...] as recommended Patient Signature / or Patient Custom Motorcycle Painter Provider Signature Date Date/Time 09/26/2018 18:56 [facility] [...] oral tablet loratadine 10 mg oral capsule [place] 5 mg-325 mg oral tablet sodium bicarbonate [...]
--- OUTSIDE RECORDS SUMMARY | 2025-07-12 13:58 | XMS_ITS | Encounter Summary ---
Author Organization [facility] Address [address], [address] [place] [address] Care Team Providers Care Developmental Electronics Assembler Name Role Phone Jaquan Conley MD Primary Care Provider [phone] Reason for Referral * Imaging (Emergency) - Closed Specialty Diagnoses / Procedures Referred By Contac t Referred To Contact Radiology Diagnoses Urinary retention Procedures US RENAL COMPLETE Yue Abdalla APRN [address] [place] [address] Phone: tel: Referral ID Status Reason Start Date Expiration Date Visits Re quested Visits Authorized [id number] Closed 01/09/2021 01/09/2022 1 1 Encounter Details Date Type Department Care Team (Latest Contact Info) Description 01/09/2021 Transcribe Orders [facility] PRE ACCESS [address] [place] [address] Yue Abdalla APRN [address] [place] [place] [address] Urinary retention (Primary Dx) Social [...] abnormality of the kidneys or urinary bladder. [place] Rm SUPERVISOR [facility] US ORDERABLES Final Result documented in this encounter Visit Diagnoses Diagnosis Urinary retention- Primary Retention of urine, unspecified Urinary retention Retention of urine, unspecified documented in this encounter Care Teams Developmental Electronics Assembler Relationship Specialty Start Date End Date Jaquan Conley MD [address] [place] [address] PCP - General Internal Medicine 01/09/21 documented as of this encounter
--- OUTSIDE RECORDS SUMMARY | 2025-07-12 13:58 | XMS_ITS | Encounter Summary ---
Author Organization [employer] ([place], [place], [place], [place], [place]) Address [address] [place] [address] Care Team Providers Care Pharmaceutical Development Technician Name Role Phone Unavailable Primary Care Provider Unavailabl e Encounter Details Date Type Department Care Team (Late st Contact Info) Description 01/08/2019 Transcribed Document [facility] [place] Family Medicine [address] [place] [address] ProviderLaury MD [address] [place] [id number] Social History [...] Sex Female Language PCP Marital Status Phone [phone] Visit Id Visit Reason Specialty Enc Type Emergency Med Service Referred by Track Group [facility] Discharge Tracking Id [id number] Checkout 01/07/2019 20:31:56 Checkin 01/07/2019 18:52:00 Acuity 3 - Urgent [facility] Dispo Type Arrival 01/07/2019 18:52:00 Reg Status LOS 000 01:39 Address: [address] [place] [address] [place] [address] POWERFORMS PHYSICIAN NOTES VITALS INFORMATION Vital Sign Triage Temp 99.4 [address] Route Pulse Rate 96 Respiratory Rate 16 Blood Pressure 137/ 85 LOCATION INFORMATION Arrival Nurse Unit Room Bed 01/07/2019 18:52:00 [facility] ED Waitroom (K) 01/07/2019 20:31:56 [facility] ED Checkout (K) MEDICAL INFORMATION Allergy Info: NSAIDs PATIENT EDUCATION INFORMATION Instructions: Follow up: DIAGNOSIS documented in this encounter Plan of Treatment Not on file documented as of this encounter Visit Diagnoses Not on filedocumented in this encounter
--- OUTSIDE RECORDS SUMMARY | 2025-07-12 13:58 | XMS_ITS | Encounter Summary ---
Author Organization [employer] ([place], [place], [place], [place], [place]) Address [address] [place] [address] Care Team Providers Care Box Stamper Name Role Phone Unavailable Primary Care Provider Unavailabl e Encounter Details Date Type Department Care Team (Late st Contact Info) Description 09/07/2018 Transcribed Document [facility] [place] Family Medicine [address] [place] [address] ProviderLaury MD [address] [place] [address] Social History Tobacco Use Types Packs/Day [...] - Laury ProviderMD - 09/07/2018 8:23 PM LEAF TINNER [facility] Triage ED Entered On: 09/07/2018 15:30 [...] : No GI 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 : No 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 Hx : No Heart Attack : No [...] Source : Stated Height Entry Format : Wetzel Height, Inches : 65 Inch(Converted to: 5 ft 5 Inch, 165.10 cm) Clinical Height : 165.1 cm Weight Source : Stated Type of Weight Measurement Est : Wetzel Weight, est lb : 215 lb Estimated Clinical Dosing Weight : 97.73 kg [place] Body Weight : 57 kg Body Surface Area Estimated : 2.12 m2 Body Mass Index Estimated : 35.85 kg/m2 Silvia Cole, - 09/07/2018 15:23 EST Medication List ED Medications Reviewed : Yes Source of Information : Patient Silvia Cole, - 09/07/2018 15:23 EST Medication List (As Of: 09/07/2018 15:30:02 EST) Home Meds Status: Processing ; Ordered As Mnemonic: [place] 5 mg-325 mg oral tablet ; Simple [...]
--- OUTSIDE RECORDS SUMMARY | 2025-07-12 13:58 | XMS_ITS | Encounter Summary ---
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 D/CD from [facility] 07/22 AMA for UTI. Health History Reviewed [...] : No GI 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 : No Trimmer Machine Hx : No Heart Attack : No [...] : No Pathway Planning : No ROSA FOSETR - 08/03/2018 13:57 EST Temp : 98.1 [...] Preferred Communication Mode : Verbal Languages : Egyptian Child/Parent Domestic Concerns : None Threats of Suicide : No ROSA FOSTER 08/03/2018 13:57 EST Height and Weight Height Source : Stated Height Entry Format : Collins Height, Inches : 65 Inch(Converted to: 5 ft 5 Inch, 165.10 cm) Clinical Height : 165.1 cm Weight Source : Stated Type of Weight Measurement Est : Collins Weight, est lb : 215 lb Estimated Clinical Dosing Weight : 97.73 kg [place] Body Weight : 57 kg Body Surface [...] 08/03/2018 13:57 EST Electronically signed by [facility] Conversion Metal Sander And Finisher Cerner at 10/19/2022 11:22 AM CDT documented in this encounter Plan of Treatment Not on file documented as of this encounter Visit Diagnoses Not on filedocumented in this encounter
--- OUTSIDE RECORDS SUMMARY | 2025-07-12 13:58 | XMS_ITS | Encounter Summary ---
Author Organization [employer] ([place], [place], [place], [place], [place]) Address [address] [place] [address] Care Team Providers Care Cash Surrender Calculator Name Role Phone Unavailable Primary Care Provider Unavailabl e Encounter Details Date Type Department Care Team (Late st Contact Info) Description 09/07/2018 Transcribed Document [facility] [place] Family Medicine [address] [place] [address] ProviderLaury MD [address] [place] [address] Social History Tobacco Use Types Packs/Day [...] - Laury ProviderMD - 09/07/2018 9:31 PM COOK MAYONNA[facility] Emergency Department Depart Summary PERSON INFORMATION Name Crystal Archer Age 28 Years 1990 Sex Female Language PCP Marital Status Phone [phone] Visit Id Visit Reason Specialty Enc Type Emergency Med Service Referred by Track Group [facility] Discharge Tracking Id [id number] Checkout 09/07/2018 16:31:16 Checkin 09/07/2018 15:20:00 Acuity 4 - Non-urgent [facility] Dispo Type Arrival 09/07/2018 15:20:00 Reg Status LOS 000 01:11 Address: [address] [place] [address] [place] [address] POWERFORMS PHYSICIAN NOTES VITALS INFORMATION Vital Sign Triage Temp 99.1 Temp Route Oral/Mouth Pulse Rate 61 Respiratory Rate 20 Blood Pressure 145/ 91 LOCATION INFORMATION Arrival Nurse Unit Room Bed 09/07/2018 15:20:00 [facility] ED Waitroom ([facility]) 09/07/2018 15:34:51 [facility] ED 9 09/07/2018 16:31:16 [facility] ED Checkout ([facility]) MEDICAL INFORMATION Allergy Info: No Known Allergies [...]
--- OUTSIDE RECORDS SUMMARY | 2025-07-12 13:58 | XMS_ITS | Encounter Summary ---
Author Organization [employer] ([place], [place], [place], [place], [place]) Address [address] [place] [address] Care Team Providers Care Dry Finisher Name Role Phone Unavailable Primary Care Provider Unavailabl e Encounter Details Date Type Department Care Team (Late st Contact Info) Description 11/19/2018 Transcribed Document [facility] [place] Family Medicine [address] [place] [address] ProviderLaury MD [address] [place] [address] Social History Tobacco Use Types Packs/Day [...] Laury ProviderMD - 11/19/2018 1:52 AM CDT [facility] Emergency Department Depart Summary PERSON INFORMATION Name Crystal Archer Age 28 Years 1990 Sex Female Language PCP Marital Status Phone [phone] Visit Id Visit Reason Specialty Enc Type Emergency Med Service Referred by Track Group [facility] Discharge Tracking Id [id number] Checkout 11/18/2018 21:52:54 Checkin 11/18/2018 20:06:00 Acuity 4 - Non-urgent [facility] Dispo Type Arrival 11/18/2018 20:06:00 Reg Status MIRIAM 000 01:46 Address: [address] [place] [address] [place] [address] POWERFORMS PHYSICIAN NOTES VITALS INFORMATION Vital Sign Triage Temp 99.0 Temp Route Oral/Mouth Pulse Rate 107 Respiratory Rate 18 Blood Pressure 147/ 87 LOCATION INFORMATION Arrival Nurse Unit Room Bed 11/18/2018 20:06:00 [facility] ED Waitroom ([facility]) 11/18/2018 20:10:40 [facility] ED 8 11/18/2018 21:33:06 [facility] ED STA-3 11/18/2018 21:52:54 [facility] ED Checkout ([facility]) MEDICAL INFORMATION Allergy Info: No Known Allergies PATIENT EDUCATION INFORMATION Instructions: Urinary Tract Infection, Adult, [id number]; Otitis Media, Adult, [id number] Follow up: With: Address: When: Follow up with primary care provider Within 1-2 days With: Address: When: Return to Emergency Department Within As needed DIAGNOSIS documented in this encounter Plan of Treatment Not on file documented as of this encounter Visit Diagnoses Not on filedocumented in this encounter
== END 2025-07-09 23:59 | disposition home or self-care (01) ==
LOC: LAB.DROPOF 07-12 13:55
PROVIDERS: PCP Nurse Practitioner; Visit Provider Student in an Organized Health Care Education/Training Program
DX: N39.0 Urinary tract infection, site not specified (principal); E78.5 Hyperlipidemia, unspecified; I10 Essential (primary) hypertension; E11.8 Type 2 diabetes mellitus with unspecified complications; Z94.0 Kidney transplant status; E83.42 Hypomagnesemia; Z79.899 Other long term (current) drug therapy
CPT/HCPCS: 87086